=== PATIENT | female | born 1975 | race Caucasian/White ===

== ENCOUNTER 2021-12-06 12:55 | Emergency (ER) | payer SELFPAY ==
[2021-12-06 13:44] LABS: Urine Blood Negative (Negative); Urine Glucose Negative (Negative); Urine Protein Negative (Negative); Urine pH 6.5 (5.0-7.0)
[2021-12-06] MEDS ORDERED: NA CHLORIDE 0.9% 100 ML IV ONE (13:48)
[2021-12-06] MEDS ORDERED: LEVETIRACETAM 500 MG/5 ML VIAL IV ONE (13:48)
[2021-12-06] MEDS ORDERED: NA CHLORIDE 0.9% 1,000 ML ONE (13:49)
[2021-12-06 13:59] LABS: Barbiturates NEGATIVE (NEGATIVE); Benzodiazepines NEGATIVE (NEGATIVE); Cocaine NEGATIVE (NEGATIVE); METHAMPHETAM NEGATIVE (NEGATIVE); Methadone NEGATIVE (NEGATIVE); Opiates NEGATIVE (NEGATIVE); Phencyclidine NEGATIVE (NEGATIVE); THC Cannibis NEGATIVE (NEGATIVE)
[2021-12-06 14:30] LABS: Absolute Lymphocytes (CBC) 2.9 K/uL (0.7-4.9); Hematocrit 42.7 % (36.0-45.0); Lymphocytes % 30.4 % (15.3-44.8); MPV 7.8 fL (7.6-11.3); RBC Red Blood Cell Count 4.77 M/uL (3.86-4.86)
[2021-12-06 14:39] LABS: Protime INR 1.12
[2021-12-06 15:05] LABS: ALT/SGPT 22 U/L (12-78); AST/SGOT 13 U/L (15-37); Albumin 3.5 g/dL (3.4-5.0); Alkaline Phosphatase 72 U/L (45-117); BUN Blood Urea Nitrogen 10 mg/dL (7-18); Bicarbonate 25 mmol/L (21-32); Bilirubin Direct 0.1 mg/dL (0-0.2); Bilirubin Total 0.6 mg/dL (0.2-1.0); Glucose Level 91 mg/dL (74-106); Potassium 3.5 mmol/L (3.5-5.1); Protein, Total 6.9 g/dL (6.4-8.2); Sodium Level 141 mmol/L (136-145)
--- NOTE | 2021-12-06 16:21 | ER ---
Nurse's Notes [facility] Name: Shanna Nur Age: 46 yrs Sex: Female : 1975 Arrival Date: 12/06/2021 Time: 13:08 Bed 18 Private MD: Diagnosis: Other seizures Presentation: 12/06 13:15 Chief complaint: EMS states: 10 witness seizures at work today. Patient states she lost ww count yesterday after 22 seizures. Received 2mg Ativan in route. Coronavirus screen: Client denies travel out of the [place] in the last 14 days. Ebola Screen: Patient denies travel to an Ebola-affected area in the 21 days before illness onset. Initial Sepsis Screen: Does the patient meet any 2 criteria? No. Patient's initial sepsis screen is negative. Does the patient have a suspected source of infection? No. Patient's initial sepsis screen is negative. Risk Assessment: Do you want to hurt yourself or someone else? Patient reports no desire to harm self or others. Onset of symptoms was December 06, 2021. 13:15 Method Of Arrival: EMS: [facility] ww 13:15 Acuity: JESUS 3 ww Triage Assessment: 13:10 General: Appears comfortable, Behavior is calm, cooperative. Pain: Denies pain. EENT: ww No signs and/or symptoms were reported regarding the EENT system. Neuro: Level of Consciousness is post ictal, Oriented to person, place, time, situation. 13:10 Cardiovascular: Patient's skin is warm and dry. Respiratory: Airway is patent ww Respiratory effort is even, unlabored, Respiratory pattern is regular, symmetrical. GI: No signs and/or symptoms were reported involving the gastrointestinal system. : No signs and/or symptoms were reported regarding the genitourinary system. Derm: No signs and/or symptoms reported regarding the dermatologic system. Skin is intact, is healthy with good turgor. Historical: - Allergies: 14:01 No Known Allergies; ww - Home Meds: 14:01 Keppra Oral [Active]; Lisinopril Oral [Active]; Metoprolol Tartrate Oral [Active]; ww Bumex Oral [Active]; - PMHx: 14:01 Hypertensive disorder; Seizure; ww - Immunization history:: Adult Immunizations unknown. - Social history:: Smoking status: unknown. Screenin:04 Abuse screen: Denies threats or abuse. Denies injuries from another. Nutritional ww screening: No deficits noted. Tuberculosis screening: No symptoms or risk factors identified. Fall Risk None identified. Assessment: 14:04 Reassessment: Patient appears in no apparent distress at this time. No changes from ww previously documented assessment. Patient and/or family updated on plan of care and expected duration. Pain level reassessed. 15:35 Reassessment: Patient appears in no apparent distress at this time. No changes from ww previously documented assessment. Patient and/or family updated on plan of care and expected duration. Pain level reassessed. Patient is alert, oriented x 3, equal unlabored respirations, skin warm/dry/pink. 16:24 Reassessment: Patient appears in no apparent distress at this time. No changes from ww previously documented assessment. Patient and/or family updated on plan of care and expected duration. Pain level reassessed. Patient is alert, oriented x 3, equal unlabored respirations, skin warm/dry/pink. Tee Bill at bedside discussing findings and discharge instructions. Vital Signs: 13:15 BP 124 / 57; Pulse 91; Resp 18; Temp 97(O); Pulse Ox 97% ; Weight 68.04 kg; Height 5 ww ft. 3 in. (160.02 cm); Pain 0/10; 14:05 BP 108 / 75; Pulse 97; Resp 18; Pulse Ox 99% on R/A; ww 16:25 BP 130 / 71; Pulse 84; Resp 18; Pulse Ox 98% on R/A; ww 13:15 Body Mass Index 26.57 (68.04 kg, 160.02 cm) ww Remy Coma Score: 13:10 Eye Response: to voice(3). Verbal Response: oriented(5). Motor Response: obeys ww commands(6). Total: 14. ED Course: 13:08 Patient arrived in ED. ww 13:10 Tee Bill PA is PHCP. cp 13:10 Leo Diop MD is Attending Physician. cp 13:24 Halima Ryan, AUDI is Primary Nurse. ww 14:01 Triage completed. ww 14:04 Patient has correct armband on for positive identification. Bed in low position. Call ww light in reach. Side rails up X2. Adult w/ patient. Seizure precautions initiated. compliance monitor on. Pulse ox on. NIBP on. 14:04 Maintain EMS IV. Dressing intact. Good blood return noted. Site clean \T\ dry. Gauge \T\ ww site: 22g right hand. 16:44 Arm band placed on. ww 16:44 No provider procedures requiring assistance completed. IV discontinued, bleeding ww controlled, No redness/swelling at site. Pressure dressing applied. Administered Medications: 13:51 Drug: Keppra (levETIRAcetam) 1000 mg Route: IV; Rate: calculated rate; Site: left hand; ww 13:51 Not Given (Physician Discretion): Ativan (LORazepam) 1 mg IVP once ww 13:51 Drug: NS 0.9% 1000 ml Route: IV; Rate: 500 ml/hr; Site: left hand; Outcome: 16:21 Discharge ordered by . kyle 16:44 Discharged to home with friend. ww 16:44 Condition: stable 16:44 Discharge instructions given to patient, Instructed on discharge instructions, follow up and referral plans. medication usage, safety practices, Demonstrated understanding of instructions, follow-up care, medications. 16:44 Patient left the ED. ww Signatures: Tee Bill PA PA cp Wood, Whitney, RN RN ww
--- NOTE | 2021-12-06 16:21 | EDPHYS ---
Physician Documentation [facility] Name: Shanna Nur Age: 46 yrs Sex: Female : 1975 Arrival Date: 12/06/2021 Time: 13:08 Bed 18 Private MD: ED Physician Leo Diop HPI: 12/06 13:15 This 46 yrs old Female presents to ER via EMS with complaints of Seizure. cp 13:15 The patient presents with a history of multiple seizures, the episode(s) was witnessed, cp by co-worker(s). 13:15 Character of seizure(s): Loss of consciousness: the patient experienced loss of cp consciousness, Motor activity: generalized, shaking all over, Incontinence: none. Seizure onset: today. 13:15 Context: the seizure(s) was witnessed, by co-worker(s), occurred at work, Contributing cp factors: unknown, the patient is post-ictal. Seizure Hx: Seizure medications: Keppra, Vimpat. Associated injury: The patient did not suffer any apparent associated injury. EMS care: Ativan, 2 mg(s), IV. Current symptoms: decreased level of consciousness, is arousable but tired. Historical: - Allergies: 14:01 No Known Allergies; ww - Home Meds: 14:01 Keppra Oral [Active]; Lisinopril Oral [Active]; Metoprolol Tartrate Oral [Active]; ww Bumex Oral [Active]; - PMHx: 14:01 Hypertensive disorder; Seizure; ww - Immunization history:: Adult Immunizations unknown. - Social history:: Smoking status: unknown. ROS: 13:20 Neuro: Positive for history of seizures. cp 13:20 Eyes: Negative for injury, pain, redness, and discharge. cp 13:20 Constitutional: Negative for body aches, chills, fever, poor PO intake. 13:20 ENT: Negative for drainage from ear(s), ear pain, sore throat, difficulty swallowing, difficulty handling secretions. 13:20 Cardiovascular: Negative for chest pain, edema, palpitations. 13:20 Respiratory: Negative for cough, shortness of breath, wheezing. 13:20 Abdomen/GI: Negative for abdominal pain, nausea, vomiting, and diarrhea. 13:20 : Negative for urinary symptoms. 13:20 All other systems are negative. Exam: 13:25 Constitutional: The patient appears in no acute distress, non-diaphoretic, non-toxic, cp well developed, well nourished. 13:25 Head/Face: Normocephalic, atraumatic. cp 13:25 Eyes: Periorbital structures: appear normal, Pupils: equal, round, and reactive to light and accomodation, Extraocular movements: intact throughout, Conjunctiva: normal, no exudate, no injection, Sclera: no appreciated abnormality, Lids and lashes: appear normal, bilaterally. 13:25 ENT: External ear(s): are unremarkable, Nose: is normal, Mouth: Lips: moist, Oral mucosa: pink and intact, moist, Posterior pharynx: Airway: no evidence of obstruction, patent. 13:25 Neck: ROM/movement: is normal, is supple, without pain, no range of motions limitations, no meningismus. 13:25 Chest/axilla: Inspection: normal, Palpation: is normal, no crepitus, no tenderness. 13:25 Cardiovascular: Rate: normal, Rhythm: regular, Edema: is not appreciated, JVD: is not appreciated. 13:25 Respiratory: the patient does not display signs of respiratory distress, Respirations: normal, no use of accessory muscles, no retractions, labored breathing, is not present, Breath sounds: are clear throughout, no decreased breath sounds, no stridor, no wheezing. 13:25 Abdomen/GI: Inspection: abdomen appears normal, Palpation: abdomen is soft and non-tender, in all quadrants. 13:25 Musculoskeletal/extremity: Exam is negative for decreased range of motion, deformity, injury. 13:25 Neuro: Orientation: to person, place \T\ time. Mentation: responsive to voice able to follow commands, sleepy, Motor: moves all fours, strength is normal, Sensation: is normal. 14:53 ECG was reviewed by the Attending Physician. cp Vital Signs: 13:15 BP 124 / 57; Pulse 91; Resp 18; Temp 97(O); Pulse Ox 97% ; Weight 68.04 kg; Height 5 ww ft. 3 in. (160.02 cm); Pain 0/10; 14:05 BP 108 / 75; Pulse 97; Resp 18; Pulse Ox 99% on R/A; ww 16:25 BP 130 / 71; Pulse 84; Resp 18; Pulse Ox 98% on R/A; ww 13:15 Body Mass Index 26.57 (68.04 kg, 160.02 cm) ww Remy Coma Score: 13:10 Eye Response: to voice(3). Verbal Response: oriented(5). Motor Response: obeys ww commands(6). Total: 14. MDM: 13:17 Patient medically screened. cp 14:00 Differential diagnosis: drug overdose, cardiac arrhythmia, seizure, TIA. cp 16:20 Data reviewed: vital signs, nurses notes, lab test result(s). cp 16:20 Test interpretation: by ED physician or midlevel provider: ECG. Counseling: I had a cp detailed discussion with the patient and/or guardian regarding: the historical points, exam findings, and any diagnostic results supporting the discharge/admit diagnosis, lab results, the need for outpatient follow up, for definitive care, a neurologist, to return to the emergency department if symptoms worsen or persist or if there are any questions or concerns that arise at home. Response to treatment: the patient's symptoms have markedly improved after treatment, and as a result, I will discharge patient. 16:21 ED course: VSS. Patient resting comfortably in exam room . No seizure activity cp observed. Will discharge to home for continued monitoring. 12/06 13:10 Order name: Acetaminophen; Complete Time: 15:16 12/06 13:10 Order name: Basic Metabolic Panel; Complete Time: 15:16 12/06 15:16 Interpretation: Normal except: CL 111; GFR 86. 12/06 13:10 Order name: CBC with Diff; Complete Time: 15:08 12/06 15:08 Interpretation: Reviewed. 12/06 13:10 Order name: ETOH Level; Complete Time: 15:08 12/06 15:08 Interpretation: Reviewed. 12/06 13:10 Order name: Hepatic Function; Complete Time: 15:16 12/06 16:04 Interpretation: Normal except: AST 13; A/G 1.0. 12/06 13:10 Order name: PT-INR; Complete Time: 15:08 12/06 13:10 Order name: Ptt, Activated; Complete Time: 15:08 12/06 13:10 Order name: Salicylate; Complete Time: 15:08 12/06 13:10 Order name: Urine Drug Screen; Complete Time: 15:08 cp 12/06 15:08 Interpretation: Reviewed. cp 12/06 13:44 Order name: Urine Dipstick-Ancillary; Complete Time: 15:08 EDMS 12/06 13:45 Order name: Urine --Ancillary (enter results); Complete Time: 15:08 bd 12/06 13:10 Order name: EKG; Complete Time: 13:11 cp 12/06 13:10 Order name: EKG - Nurse/Tech; Complete Time: 14:53 cp 12/06 13:10 Order name: IV Saline Lock; Complete Time: 13:26 cp 12/06 13:10 Order name: Labs collected and sent; Complete Time: 14:21 cp 12/06 13:10 Order name: Urine Dipstick-Ancillary (obtain specimen); Complete Time: 13:51 cp 12/06 13:10 Order name: Urine Test (obtain specimen); Complete Time: 13:51 cp EC:53 Rate is 90 beats/min. Rhythm is regular. RI interval is normal. QRS interval is normal. cp QT interval is normal. T waves are Inverted in lead aVR. Interpreted by me. Reviewed by me. Administered Medications: 13:51 Drug: Keppra (levETIRAcetam) 1000 mg Route: IV; Rate: calculated rate; Site: left hand; 13:51 Not Given (Physician Discretion): Ativan (LORazepam) 1 mg IVP once ww 13:51 Drug: NS 0.9% 1000 ml Route: IV; Rate: 500 ml/hr; Site: left hand; Disposition: 18:28 Co-signature as Attending Physician, Leo Diop MD. rn Disposition Summary: 12/06/21 16:21 Discharge Ordered Location: Home cp Problem: an acute exacerbation cp Symptoms: have improved cp Condition: Stable cp Diagnosis - Other seizures cp Followup: cp - With: Private Physician - When: 1 - 2 days - Reason: Recheck today's complaints Discharge Instructions: - Discharge Summary Sheet cp - Seizure, Adult cp - Form - Excuse from Work, School, or Physical Activity cp Forms: - Medication Reconciliation Form cp - Thank You Letter cp - Antibiotic Education cp - Prescription Opioid Use cp - Work release form ww Signatures: Dispatcher [employer] Leo Brian MD MD rn Tee Bill PA PA cp Wood, Whitney, RN RN ww Corrections: (The following items were deleted from the chart) 13:26 13:10 Suicide Screening ([place]) ordered. kyle bronson
[2021-12-06 18:54] VITALS: TEMP 97
[2021-12-06 18:56] VITALS: BP 130/71; O2SAT 98
== END 2021-12-06 16:44 | disposition home or self-care (01) ==
LOC: ER 12:55 → EDBD 12:55 → ER 16:44
DX: G40.89 Other seizures (principal); I10 Essential (primary) hypertension
CPT/HCPCS: 36415; 80048; 80076; 80307; 80320; 80329; 81003; 81025; 85025; 85610; 85730; 96374; 99284; J1953; J7030

== ENCOUNTER 2021-12-23 13:39 | Inpatient (IN) | payer OTHER ==
--- OUTSIDE RECORDS SUMMARY | 2021-12-23 13:46 | XMS REPORT | Continuity of Care Document ---
:1975 Author Organization [facility] t Address [address] [place] [address] Care Team Providers Name Role Phone Rashida Primary Care Physician ELISE Attending Clinician Unavailable James MCDUFFIE TAvery Attending Clinician Joelle Boles DO Attending Clinician GABY RIZZO Attending Clinician Unavailable Florence HUNTLEY Attending Clinician Unavailable Alisson HUNTLEY Attending Clinician Unavailable ELISE Attending Clinician Unavailable YANIQUE COFFEY Attending Clinician Unavailable Santosh MCDUFFIE Attending Clinician JEANNIE CAMACHO Attending Clinician Unavailable Cortes Brumfield MD Attending Clinician Gina Coe MD Attending Clinician Mendel Vasquez MD Attending Clinician REID Attending Clinician Unavailable Dionicio ANDERSON Nelsy Attending Clinician KATEY PÉREZ Attending Clinician Unavailable DEANGELO DUONG Attending Clinician Unavailable DEANGLEO DUONG Attending Clinician Unavailable GRISEL RODRIGUEZ Attending Clinician Unavailable RAULITO SCHWARZ Attending Clinician Unavailable VANDANA BENSON Attending Clinician Unavailable NICOLE JOY Attending Clinician Unavailable PRANAV Attending Clinician Unavailable ANDREZ DE LEON Attending Clinician Unavailable TRACEE LAMBERT Attending Clinician Unavailable OBIE Admitting Clinician Unavailable DEANGELO DUONG Admitting Clinician Unavailable Payers Payer Name Policy Type Policy Number Effective Date Expiration Date S maurice [facility] [id number] 2020 STAR 00:00:00 CDC REVIEW [id number] 2020 00:00:00 Problems Condition Condition Condition Status Onset Resolution Last Treating Co mments Source Name Details Category Date Date Treatment Clinician Date Traumatic Traumatic Disease Active Met hodi brain brain 4-26 st injury injury 00:00: Hospita 00 l Seizure-li Seizure-li Disease Active M ethodi ke ke 2-04 st activity activity 00:00: Hospit a 00 l Need for Need for Disease Active Metho di assistance assistance 05-08 st due to due to 00:00: Hospita unsteady unsteady 00 l gait gait Seizures Seizures Disease Active Metho di 926 st 00:00: Hospita 00 l Dizziness Dizziness Disease Active Met hodi [facility] st 00:00: Hospita 00 l Chest pain Chest pain Disease Active M ethodi 2-16 st 00:00: Hospita 00 l TIA TIA Disease Active 2017-08 Methodi (transient (transient 2-21 st ischemic ischemic 00:00: Hospit a attack) attack) 00 l History of History of Disease Active Overview : Methodi DVT in DVT in 4-[address] adulthood adulthood 00:00: g of this H ospita 00 note l might be different from the original. Patient reported Chronic Chronic Disease Active Methodi blood loss blood loss 3-30 st anemia anemia 00:00: Hospita 00 l Increased Increased Disease Active Met hodi endometria endometria 3-30 st l stripe l stripe 00:00: Hospit a thickness thickness 00 l Abnormal Abnormal Disease Active Metho di uterine uterine 3-30 st bleeding bleeding 00:00: Hospit a (AUB) (AUB) 00 l Poor Poor Disease Active Methodi compliance compliance 3-30 st with with 00:00: Hospita medication medication 00 l VAGINAL Diagnosis Active 2016-08-10 Me moria BLEEDING 7-02 09:01:00 l VAGINAL 23:00: [place] BLEEDING 00 Active 02/12/2016 [facility] D25.9 - Diagnosis Active 2014-082015-06-08 Me moria "LEIOMYOMA 0- 15:22:00 l OF UTERUS, D25.9 - 00:01: Her sarkar UNSPECIFI" "LEIOMYOMA 00 OF UTERUS, UNSPECIFI" Active 06/08/2015 OPIBritany [place] VAGINAL Diagnosis Active 2014-12-21 Me moria BLEEDING- - 13:01:00 l 6 WKS PG VAGINAL 00:00: Kristina nn BLEEDING- 00 6 WKS PG Active 09/03/2014 [facility] CONSTIPATI Diagnosis Active 2014-12-14 Memoria ON, NAUSEA 1-12 09:23:00 l 00:00: [place] CONSTIPATI 00 ON, NAUSEA Active 08/24/2014 [facility] History of History of Problem Resolve UT Bladder Bladder d Physici spasm spasm ans History of History of Problem Resolve UT Chronic Chronic d Physici pain pain ans History of History of Problem Resolve UT Chronic Chronic d Physici pain due pain due ans to to neoplasm neoplasm History of History of Problem Resolve UT Degenerati Degenerati d Ph ysici on of on of ans interverte interverte bral disc bral disc of lumbar of lumbar region region History of History of Problem Resolve UT degenerati degenerati d Ph ysici ve disc ve disc ans disease disease History of History of Problem Resolve UT mitral mitral d Physici valve valve ans prolapse prolapse History of History of Problem Resolve UT multiple multiple d Physic i sclerosis sclerosis ans History of History of Problem Resolve UT Peptic Peptic d Physici ulcer, ulcer, ans chronic chronic Fibroids Fibroids Problem Active UT Physici ans Encounter Encounter Problem Active UT for for Physici routine routine ans gynecologi gynecologi keerthi keerthi examinatio examinatio n with n with Papanicola Papanicola ou smear ou smear of cervix of cervix Dysmenorrh Dysmenorrh Problem Active U T ea ea Physici ans Menorrhagi Menorrhagi Problem Active U T a with a with Physici regular regular ans cycle cycle Vaginal Vaginal Problem Active UT discharge discharge Phys ici ans Bacterial Bacterial Problem Active UT vaginosis vaginosis Phys ici ans Encounter Encounter Problem Active UT for for Physici confirmati confirmati an s on of on of test test result result with with physical physical examinatio examinatio n n Missed Missed Problem Active UT Physic i ans Anemia Anemia Problem Active UT Physici ans Problem Active UT control control Physici ans Follow up Follow up Problem Active UT Physici ans Pelvic Pelvic Problem Active UT pain in pain in Physici female female ans Pain of Pain of Problem Active UT right hand right hand Ph ysici ans Neurapraxi Neurapraxi Problem Active U T a of right a of right Ph ysici upper upper ans extremity, extremity, initial initial encounter encounter Pain of Pain of Problem Active UT right right Physici thumb thumb ans SOB SOB Problem Active UT (shortness (shortness Ph ysici of breath) of breath) an s on on exertion exertion 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 Anemia Problem Resolve 2016-02-16 Bhavesh mario (disorder) d 00:25:42 l Anemia [place] (disorder) Resolved Problem 02/16/2016 [facility] Migraine Problem Resolve 2016-02-16 Me moria (disorder) d 00:25:42 l Migraine Jordy n (disorder) Resolved Problem 02/16/2016 [facility] Mitral Problem Resolve 2016-02-16 Bhavesh mario valve d 00:25:42 l prolapse Mitral Jordy n (disorder) valve prolapse (disorder) Resolved Problem 02/16/2016 [facility] Anxiety Problem Active 2016-02-16 Bhavesh mario (finding) 00:25:42 l Anxiety [place] (finding) Active Problem 02/16/2016 [facility] Bipolar Problem Active 2016-02-16 Bhavesh mario (qualifier 00:25:42 l value) Bipolar [place] (qualifier value) Active Problem 02/16/2016 [facility] Congestive Problem Active 2016-02-16 M emoria heart 00:25:42 l failure [place] (disorder) Congestive heart failure (disorder) Active Problem 02/16/2016 [facility] Depressive Problem Active 2016-02-16 M emoria disorder 00:25:42 l (disorder) Jordy n Depressive disorder (disorder) Active Problem 02/16/2016 [facility] Gastroesop Problem Active 2016-02-16 M emoria hageal 00:25:42 l reflux Antonio disease Gastroesop (disorder) hageal reflux disease (disorder) Active Problem 02/16/2016 [facility] Heart Problem Active 2016-02-16 Memor ia failure 00:25:42 l (disorder) Heart Kristina nn failure (disorder) Active Problem 02/16/2016 [facility] Hypertensi Problem Active 2016-02-16 M emoria ve 00:25:42 l disorder, Antonio systemic Hypertensi arterial ve (disorder) disorder, systemic arterial (disorder) Active Problem 02/16/2016 [facility] Multiple Problem Active 2016-02-16 Mem oria sclerosis 00:25:42 l (disorder) Multiple He rmann sclerosis (disorder) Active Problem 02/16/2016 [facility] Osteoarthr Problem Active 2016-02-16 M emoria itis 00:25:42 l (disorder) Jordy n Osteoarthr itis (disorder) Active Problem 02/16/2016 [facility] Drug Problem Active 2016-02-16 Memor ia overdose 00:25:42 l (disorder) Drug Jordy n overdose (disorder) Active Problem 02/16/2016 [facility] Rheumatoid Problem Active 2016-02-16 M emoria arthritis 00:25:42 l (disorder) Jordy n Rheumatoid arthritis (disorder) Active Problem 02/16/2016 [facility] Respirator Problem Active 2016-02-16 M emoria y failure 00:25:42 l (disorder) Jordy n Respirator y failure (disorder) Active Problem 02/16/2016 [facility] Uterine Problem Active 2016-02-16 Bhavesh mario leiomyoma 00:25:42 l (disorder) Uterine Her sarkar leiomyoma (disorder) Active Problem 02/16/2016 [facility] Urinary Problem Active 2016-02-16 Bhavesh mario tract 00:25:42 l infectious Urinary Her sarkar disease tract (disorder) infectious disease (disorder) Active Problem 02/16/2016 [facility] History of Past Illness Condition Condition Condition Status Onset Resolution Last Treating Co mments Source Name Details Category Date Date Treatment Clinician Date Discharge Problem 2016-02-16 2016-02-16 Memoria Diagnosis: 02-12 00:25:42 00:25:42 l Anemia, 05:00: [place] unspecifie Discharge 00 d Diagnosis: Anemia, unspecifie d 02/13/2016 02/16/2016 [facility] Discharge Problem 2016-02-16 2016-02-16 Memoria Diagnosis: 02-12 00:25:42 00:25:42 l Abnormal 05:00: [place] uterine Discharge 00 and Diagnosis: vaginal Abnormal bleeding, uterine unspecifie and d vaginal bleeding, unspecifie d 02/13/2016 02/16/2016 [facility] Discharge Problem 2014-09-06 2014-09-06 Memoria Diagnosis: 09-04 16:01:45 16:01:45 l Vaginal 06:00: [place] bleeding Discharge 00 Diagnosis: Vaginal bleeding 5 09/06/2014 [facility] Discharge Problem 2014-09-06 2014-09-06 Memoria Diagnosis: 09-04 16:01:45 16:01:45 l Dysmenorrh 06:00: Jordy n ea Discharge 00 Diagnosis: Dysmenorrh ea 09/04/2014 09/06/2014 [facility] Discharge Problem 2014-08-26 2014-08-26 Memoria Diagnosis: 1 17:22:44 17:22:44 l Nausea 06:00: [place] Discharge 00 Diagnosis: Nausea 08/24/2014 08/26/2014 [facility] Discharge Problem 2014-08-26 2014-08-26 Memoria Diagnosis: 1 17:22:44 17:22:44 l Constipati 06:00: Jordy n on Discharge 00 Diagnosis: Constipati on 08/24/2014 08/26/2014 [facility] Allergies, Adverse Reactions, Alerts Allergy Allergy Status Severity Reaction(s) Onset Inactive Treating Comm ents Source Name Type Date Date Clinician Povidone Allergy Active UT Iodine to 04-25 Health substanc 00:00: e 00 Latex Allergy Active UT to 04-25 Health substanc 00:00: e 00 Nsaids Propensi Active UT ty to 04-25 Health adverse 00:00: reaction 00 s Citalopr Propensi Active Itching Burning Meth ketty am ty to 09-[address] adverse 00:00: Hospita reaction 00 l s to drug Citalopr Propensi Active Itching Burning UT am ty to 09-16 skinBurni Health adverse 00:00: ng reaction 00 skinBurni s ng skin Tramadol Propensi Active Seizure 2017-08 migraines Me thodi ty to 09-23 st adverse 00:00: Hospita reaction 00 l s to drug Ketorola Propensi Active Other (See migraines Methodi c ty to Comments) 11-07 st adverse 00:00: Hospita reaction 00 l s to drug IODINE Allergy Active High Anaphylaxis 2016- [facility] AND 11-07 IODIDE 00:00: CONTAINI 00 NG PRODUCTS KETOROLA Allergy Active [facility] C 11-07 00:00: 00 Iodine Drug Active [facility]aphyl[facility] 2017[facility] Containi 00 Center ng Products Ketorola Drug Active [facility] Intolera 11[facility] nce 00:00: Medical 00 Center Povidone Propensi Active Anaphylaxis 2017-0 M ethodi -Iodine ty to 10-19 st adverse 00:00: Hospita reaction 00 l s to drug Iodine Propensi Active Anaphylaxis 2016- Met hodi And ty to 10-19 st Iodide adverse 00:00: Hospita Containi reaction 00 l ng s to Products drug Latex Propensi Active Hives 2016- Methodi ty to 10-19 st adverse 00:00: Hospita reaction 00 l s to drug Shellfis Propensi Active Anaphylaxis 2017-0 M ethodi h ty to 10-19 st Derived adverse 00:00: Hospita reaction 00 l s to drug Vancomyc Propensi Active Hives 2016-0 Method i in ty to 09-25 st Analogue adverse 00:00: Hospita s reaction 00 l s to drug TRAMADOL Allergy Active 2016-0 [facility] 09-25 00:00: 00 VANCOMYC Allergy Active 2016-0 [facility] IN 09-25 ANALOGUE 00:00: S 00 Tramadol Propensi Active 2017-[address] ty to 2-13 [facility] adverse 00:00: Medical reaction 00 Center s Vancomyc Propensi Active [facility] ty to 2-13 [facility] Analogue adverse 00:00: Medical s reaction 00 Center s Levoflox Propensi Active Anaphylaxis 2013-08 Tongue M ethodi acin ty to 0-[address] adverse 00:00: Hospita reaction 00 l s to drug Prometha Propensi Active Hives 2013-08 Method i zine ty to 0-03 st adverse 00:00: Hospita reaction 00 l s to drug POVIDONE Allergy Active 2013-08 [facility] -IODINE 0-03 00:00: 00 LATEX Allergy Active 2013-08 [facility] 0-03 00:00: 00 LEVOFLOX Allergy Active 2013-08 [facility] ACIN 0-03 00:00: 00 PROMETHA Allergy Active 2013-08 [facility] ZINE 0-03 00:00: 00 Povidone Propensi Active 2013-[address] -Iodine ty to 0-03 [facility] adverse 00:00: Medical reaction 00 Center s Latex Propensi Active 2013-[address] ty to 0-03 [facility] adverse 00:00: Medical reaction 00 Center s Levoflox Propensi Active 2013-[address] acin ty to 0-03 [facility] adverse 00:00: Medical reaction 00 Center s Prometha Propensi Active 2013-[address] zine ty to 0-03 [facility] adverse 00:00: Medical reaction 00 Center s Betadine Betadine Active Memori a Skin Skin 8-09 l 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 00:00: Jordy roberto 00 iodinate iodinate Active Memori a d d 8 l radioCloudSway radiocon 00:00: Jordy roberto trast trast 00 dyes dyes Levaquin Levaquin Active Memori a 8-09 l 00:00: Antonio 00 Phenerga Phenerga Active Memori a n n 8-09 l 00:00: Antonio 00 Betadine Allergy Active UT SOLN to drug Physici (finding ans ) Latex Allergy Active UT Exam to drug Physici Gloves (finding ans MISC ) Levaquin Allergy Active UT to drug Physici (finding ans ) Phenerga Allergy Active UT n to drug Physici (finding ans ) Vancomyc Allergy Active UT in HCl to drug Physici SOLR (finding ans ) Latex Latex Active Memoria l [place] morphine morphine Active Memori a l [place] vancomyc vancomyc Active Memori a in in l [place] Elavil Elavil Active Memoria l [place] Food Food Active Memoria Seafood Seafood l [place] STEROIDS Allergy Active [facility] Family History Family Member Diagnosis Comments Start Date Stop Date Source Maternal aunt Melanoma [facility] Maternal aunt Cancer [facility] Maternal uncle Leukemia [facility] Family member No history of Methodis t cancer [facility] Maternal grandfather Stroke [facility] Natural mother Diabetes [facility] Natural sister Stroke [facility] Social History Social Habit Start Date Stop Date Quantity Comments Source History SDOH [facility] Alcohol Frequency Hospita l History SDOH [facility] Drinks History [facility] Tobacco use and 2021-04-25 2021-04-25 Smokeless tobacco [facility] exposure 00:00:00 00:00:00 non-user Alcohol intake 2021-04-25 2021-04-25 Ex-drinker [facility] 00:00:00 00:00:00 (finding) Alcohol Comment 2018-08-02 2018-08-[address] 00:00:00 00:00:00 Hospital Sex Ass[birth year] At [birth year] [facility] 00:00:00 00:00:00 Smoking Status Start Date Stop Date Source Tobacco smoking consumption unknown [facility] Social History [facility] Medications Ordered Filled Start Stop Current Ordering Indication Dosage Frequency Signature Comments Components Source Medication Medication Date Date Medication? Clinician (SIG) Name Name shay 2020-08- No [id number] 1{tbl} Q6H Take 1 Methodi en-codeine 17 11-[address] (TYLENOL 00:00: 05:59 mouth Hospita WITH 00 :00 every 6 l CODEINE #3) (six) 300-30 mg hours as per tablet needed for moderate pain for up to 5 days .acute pain. No known No No known IN medications 9- medication He alth 12:13: s 10 metoprolol Yes [id number] 50mg Q.5D Take 1 U T succinate 9-13 tablet (50 Heal th XL 00:00: mg total) (Toprol-XL) 00 by mouth 2 50 MG 24 hr (two) tablet times a day. bumetanide Yes [id number] 2mg QD Take 1 U T (Bumex) 2 - tablet (2 Healt h MG tablet 00:00: mg total) 00 by mouth 1 (one) time each day. lisinopril Yes [id number] 2.5mg QD Take 1 UT 2.5 MG 04-25 tablet Health tablet 00:00: (2.5 mg 00 total) by mouth 1 (one) time each day. lisinopril 2020- No 2.5mg 2.5 mg. UT 2.5 MG 02-08 Health tablet 19:34: 00:00 53 :00 metoprolol 2020- No 50mg 50 mg. UT succinate 02-08 Health XL 19:34: 00:00 (Toprol-XL) 53 :00 50 MG 24 hr tablet lisinopril Yes [id number] 2.5mg QD Take 1 UT 2.5 MG - tablet Health tablet 00:00: (2.5 mg 00 total) by mouth 1 (one) time each day. metoprolol Yes [id number] 50mg Q.5D Take 1 U T succinate 02-08 tablet (50 Heal th XL 00:00: mg total) (Toprol-XL) 00 by mouth 2 50 MG 24 hr (two) tablet times a day. lisinopril 2020- No [id number] 2.5mg QD Take 1 UT 2.5 MG 02-08 tablet Health tablet 00:00: 00:00 (2.5 mg 00 :00 total) by mouth 1 (one) time each day. metoprolol 2020- No [id number] 50mg Q.5D Take 1 UT succinate 02-08 tablet (50 Hea lth XL 00:00: 00:00 mg total) (Toprol-XL) 00 :00 by mouth 2 50 MG 24 hr (two) tablet times a day. aspirin 325 Yes 325mg Take 325 M ethodi MG tablet 4-[address] 11:32: mouth. Hospita 59 Takes 3x a l week nitroglycer Yes .3mg Place 0.3 M ethodi in 4-[address] (NITROSTAT) 11:32: the tongue Hospita 0.3 MG SL 59 every 5 l tablet (five) minutes as needed for chest pain. ipratropium 0 Yes 2{puff} Q.25D Inhale 2 Methodi -albuteroL 4-[address] (COMBIVENT 11:32: (four) Hospi ta RESPIMAT) 59 times a l 20-100 day. Last mcg/actuati used February. inhaler linaCLOtide 0 Yes 72ug QD Take 72 Met hodi (LINZESS) 4-[address] 145 mcg 11:32: mouth Hospita capsule 59 daily l before breakfast. Last taken more than 6 months ago. Taken for colitis. metoprolol 0 Yes 50mg Q.5D Take 50 mg M ethodi tartrate 4-[address] (LOPRESSOR) 11:32: (two) Hospi ta 50 mg 59 times a l tablet day. lisinopriL 0 Yes 2.5mg QD Take 2.5 Me thodi (PRINIVIL) 4-[address] 2.5 mg 11:32: mouth Hospita tablet 59 daily. l BUMETanide 0 Yes 2mg Q.5W Take 2 mg Me thodi (BUMEX) 2 4-[address] MG tablet 11:32: (two) Hospita 59 times a l week. FLUoxetine 0 Yes 10mg QD Take 10 mg M ethodi (PROzac) 10 4-[address] MG capsule 11:32: daily. Hospi ta 59 l prazosin 2020-0 Yes 5mg QD Take 5 mg Meth ketty (MINIPRESS) 4-[address] 5 MG 11:32: nightly. Hospita capsule 59 l busPIRone 2020-0 Yes 15mg Q.[id number] Take 15 mg Methodi (BUSPAR) 10 4-26 [id number] mouth [address] MG tablet 11:32: 3D (three) Hospi ta 59 times a l day. ondansetron 2020-0 Yes 8mg Q8H Take 8 mg M ethodi ODT 4-[address] (ZOFRAN-ODT 11:32: every 8 Hos denise ) 8 MG 59 (eight) l disintegrat hours as ing tablet needed for nausea or vomiting. bumetanide 2020- No 2mg QD Take 2 mg U T (Bumex) 2 12-06 by mouth 1 Hea lth MG tablet 00:00: 00:00 (one) time 00 :00 each day. levETIRAcet 2020- No 750mg Q.5D Take 1 Me thodi am (KEPPRA) 12-[address] 750 MG 00:00: 04:59 (750 mg Hospita tablet 00 :00 total) by l mouth 2 (two) times a day for 30 days. lacosamide 2020- No 200mg Q.5D Take 1 Met hodi (Vimpat) 11-[address] 200 mg 00:00: 04:59 (200 mg Hospita tablet 00 :00 total) by l mouth 2 (two) times a day for 30 days. levETIRAcet 2020- No 500mg Q.5D Take 1 Me thodi am (Keppra) 11-[address] 500 MG 00:00: 00:00 (500 mg Hospita tablet 00 :00 total) by l mouth 2 (two) times a day for 30 days. amoxicillin 2020- No 1{tbl} Q12H Take 1 M ethodi -pot 11-03-[address] clavulanate 00:00: 04:59 mouth Hosp arcenio (AUGMENTIN) 00 :00 every 12 l 875-125 mg (twelve) per tablet hours for 10 days. acetaminoph 2020- [place] [id number] 1{tbl} Q6H Take 1-2 Methodi en-codeine 3- 03-[address] (TYLENOL 00:00: 04:59 mouth Hospita WITH 00 :00 every 6 l CODEINE #3) (six) 300-30 mg hours as per tablet needed for moderate pain for up to 5 days .acute pain. lacosamide 2020- No 200mg Q.5D Take 1 Met hodi (VIMPAT) 09-17-[address] 200 mg 00:00: 05:59 (200 mg Hospita tablet 00 :00 total) by l mouth 2 (two) times a day for 30 days. levETIRAcet 2020- No 500mg Q.5D Take 1 Me thodi am (KEPPRA) 09-17-[address] 500 MG 00:00: 05:59 (500 mg Hospita tablet 00 :00 total) by l mouth 2 (two) times a day for 30 days. BUMETanide 2020- No 2mg QD Take 1 Meth ketty (BUMEX) 2 09-11 tablet (2 st MG tablet 00:00: 05:59 mg total) Ho spita 00 :00 by mouth l daily for 30 days. mag 2020-0 Yes 15mL Take [address] [facility] hydrox/alum 7-11 mLs by [facility] inum 00:00: mouth Medical hyd/simeth 00 every 6 Center (GI (six) COCKTAIL hours as COMPOUNDED) needed. solution WITH mag 2020-0 Yes 15mL Take [address] hydrox/alum 7-11 mLs by [facility] inum 00:00: mouth Medical hyd/simeth 00 every 6 Center (GI (six) COCKTAIL hours as COMPOUNDED) needed. solution WITH mag 2020-0 Yes 15mL Take [address] hydrox/alum 7-11 mLs by [facility] inum 00:00: mouth Medical hyd/simeth 00 every 6 Center (GI (six) COCKTAIL hours as COMPOUNDED) needed. solution WITH albuterol 2020- No 2.5mg Take 0.[address] (PROVENTIL, 02-20 07-11 mLs (2.5 Thais es VENTOLIN) 5 00:00: 23:59 mg total) Medical mg/mL 00 :00 by Center nebulizer nebulizati solution on every 6 (six) hours as needed for Wheezing. omeprazole 2020- No 20mg QD Take [address] (PRILOSEC) 02-20 07-11 capsule [facility] 20 MG 00:00: 23:59 (20 mg Medical capsule 00 :00 total) by Center mouth daily. albuterol 2020- No 2.5mg Take 0.[address] (PROVENTIL, 02-20 07-11 mLs (2.5 Thais es VENTOLIN) 5 00:00: 23:59 mg total) Medical mg/mL 00 :00 by Center nebulizer nebulizati solution on every 6 (six) hours as needed for Wheezing. omeprazole 2020- No 20mg QD Take [address] (PRILOSEC) 02-20-11 capsule [facility] 20 MG 00:00: 23:59 (20 mg Medical capsule 00 :00 total) by Center mouth daily. albuterol 2020- No 2.5mg Take 0.[address] (PROVENTIL, 02-20 mLs (2.5 Thais es VENTOLIN) 5 00:00: 23:59 mg total) Medical mg/mL 00 :00 by Center nebulizer nebulizati solution on every 6 (six) hours as needed for Wheezing. omeprazole No 20mg QD Take [address] (PRILOSEC) 02-20 capsule [facility] 20 MG 00:00: 23:59 (20 mg Medical capsule 00 :00 total) by Center mouth daily. dicyclomine 2020- No 20mg Q.5D Take [address] (BENTYL) 20 6-24 06-24 tablet (20 L ukes mg tablet 00:00: 23:59 mg total) Me dical 00 :00 by mouth 2 Center (two) times daily. dicyclomine 2020- No 20mg Q.5D Take [address] (BENTYL) 20 6-24 06-24 tablet (20 L ukes mg tablet 00:00: 23:59 mg total) Me dical 00 :00 by mouth 2 Center (two) times daily. dicyclomine 2020- No 20mg Q.5D Take [address] (BENTYL) 20 6-24 06-24 tablet (20 L ukes mg tablet 00:00: 23:59 mg total) Me dical 00 :00 by mouth 2 Center (two) times daily. albuterol 2020- No 2{puff} Inhale [address] HFA 3-01 03-01 puffs by [facility] (VENTOLIN 00:00: 23:59 mouth via Me dical HFA) 90 00 :00 inhaler Center mcg/actuati every 4 on inhaler (four) hours as needed for Wheezing. albuterol 2020- No 2{puff} Inhale [address] HFA 3- 03-01 puffs by [facility] (VENTOLIN 00:00: 23:59 mouth via Me dical HFA) 90 00 :00 inhaler Center mcg/actuati every 4 on inhaler (four) hours as needed for Wheezing. albuterol 2020- No 2{puff} Inhale [address] HFA 3- 03-01 puffs by [facility] (VENTOLIN 00:00: 23:59 mouth via Me dical HFA) 90 00 :00 inhaler Center mcg/actuati every 4 on inhaler (four) hours as needed for Wheezing. Ferralet 90 Ferralet 90 Yes JUANCARLOS EMMANUEL 1QD - TA KE UT 90-1 MG 90-1 MG 9-12 M.D. ONE Physici Oral Tablet Oral Tablet 00:00: CAPSULE BY ans 00 MOUTH EVERY DAY ferrous Yes 325 mg = 1 Bhavesh mario gluconate -03 tab, PO, l 325 mg oral 10:36: TID, # 90 H ermann tablet 00 tab, 0 Refill(s) Reglan No 10 mg, Memoria 02-12 Route: l 09:11: IVP, Drug [place] 00 form: INJ, ONCE, Dosing Weight 68.182, kg, Priority: STAT, Start date: 02/13/16 4:11:00 CDT, Stop date: 02/13/16 4:11:00 CDT Sodium No 1,000 mL, Memori a Chloride 02-12 Rate: l 0.9% IV 09:11: 1,000 Antonio 1000 mL 00 ml/hr, Infuse over: 1 hr, Route: IV, Dosing Weight 68.182 kg, Total Volume: 1,000, Start date: 02/13/16 4:11:00 CDT, Duration: 1 doses or times, Stop date: 02/13/16 5:10:00 CDT, Bolus Dose Acetaminoph No 650 mg, Mem oria en 02-12 Route: PO, l 08:17: Drug form: [place] 00 TAB, ONCE, Dosing Weight 68.182, kg, Priority: STAT, Start date: 02/13/16 3:17:00 CDT, Stop date: 02/13/16 3:17:00 CDT Zofran No 4 mg, Memoria 02-12 Route: l 06:19: IVP, Drug form: INJ, ONCE, Dosing Weight 68.182, kg, Priority: STAT, Start date: 02/13/16 1:19:00 CDT, Stop date: 02/13/16 1:19:00 CDT Saline No Notes: Memoria Flush 0.9% 02-12 (Same as: l 06:07: BD Antonio Posiflush) Ibuprofen Yes Special Memor ia 800 MG Oral 09-04 Instructio l Tablet 08:52: ns: Take Antonio [Motrin] with food Ketorolac No 4 days Memor ia -23 l 08:49: Antonio 00 gabapentin Yes 600 mg = 1 M emoria 600 MG Oral 1-12 tab, PO, l Tablet 21:41: TID, # 90 Jordy n [Neurontin] 00 tab, 0 Refill(s) atorvastati Yes 20 mg = 1 M emoria n 20 MG 1-12 tab, PO, l Oral Tablet 21:41: Bedtime, # Antonio [Lipitor] 00 30 tab, 0 Refill(s) metoprolol Yes 50 mg = 1 Me moria tartrate 50 1-12 tab, PO, l mg oral 21:41: BID, # 60 Kristina nn tablet 00 tab, 0 Refill(s) Tylenol Tylenol Yes UT TABS TABS Physici ans OLANZapine OLANZapine Yes 1 TAKE 1 U T 5 MG Oral 5 MG Oral TABLET AT Physici Tablet Tablet BEDTIME. ans Metoprolol Metoprolol Yes Q0.5D TAKE 1 UT Succinate Succinate TABLET Phy sici ER 50 MG ER 50 MG TWICE ans Oral Tablet Oral Tablet DAILY Extended Extended Release 24 Release 24 Hour Hour Lisinopril Lisinopril Yes 1 QD TAKE 1 U T 2.5 MG Oral 2.5 MG Oral TABLET Physici Tablet Tablet DAILY. ans Prazosin Prazosin Yes 1 TAKE 1 UT HCl - 5 MG HCl - 5 MG CAPSULE Physici Oral Oral BEDTIME ans Capsule Capsule Vimpat 200 Vimpat 200 Yes Q0.5D TAKE 1 UT MG Oral MG Oral TABLET Physici Tablet Tablet TWICE ans DAILY DIRECTED. Bumetanide Bumetanide Yes 1 QD TAKE 1 U T 2 MG Oral 2 MG Oral TABLET Phy sici Tablet Tablet DAILY. ans FLUoxetine FLUoxetine Yes 1 QD TAKE 1 U T HCl - 10 MG HCl - 10 MG TABLET Physici Oral Tablet Oral Tablet DAILY. ans levETIRAcet levETIRAcet Yes Q0.5D TAKE 1 UT am 500 MG am 500 MG TABLET Phy sici Oral Tablet Oral Tablet TWICE ans DAILY. busPIRone busPIRone Yes Q0.3333D TAKE 1 UT HCl - 15 MG HCl - 15 MG TABLET 3 Physici Oral Tablet Oral Tablet TIMES ans DAILY. Immunizations Ordered Immunization Filled Immunization Date Status Commen ts Source Name Name Tdap 2020-11-03 Completed [facility] 00:[facility] Vital Signs Vital Name Observation Time Observation Value Comments Source HEIGHT 2021-05-05 165.1 cm 20:18:00 WEIGHT 2021-05-05 68.04 kg 20:18:00 HEIGHT 2021-05-05 165.1 cm 20:18:00 WEIGHT 2021-05-05 68.04 kg 20:18:00 Systolic blood 2021-04-25 120 mm[Hg] [facility] 16:25:00 Diastolic blood 2021-04-25 77 mm[Hg] [facility] pressure 16:25:00 Heart rate 2021-04-25 72 /min [facility] 16:25:00 Body height 2021-04-25 167.6 cm [facility] 16:25:00 Body weight 2021-04-25 78.926 kg [facility] 16:25:00 BMI 2021-04-25 28.08 kg/m2 [facility] 16:25:00 HEIGHT 2020-02-04 161 cm 00:00:00 WEIGHT 2020-02-04 68.04 kg 00:00:00 HEIGHT 2020-02-04 161 cm 00:00:00 WEIGHT 2020-02-04 68.04 kg 00:00:00 Systolic blood 2021-06-29 147 mm[Hg] [facility] pressure 16:16:09 [facility] Diastolic blood 2021-06-29 67 mm[Hg] [facility] pressure 16:16:09 Hospital Heart rate 2021-06-29 94 /min [facility] 16:16:09 Hospital Body temperature 2021-06-29 36.89 Cecily [facility] 16:16:09 Hospital Oxygen saturation 2021-06-29 94 /min [facility] in Arterial blood 16:16:09 Hospital by Pulse oximetry Systolic blood 2021-05-06 124 mm[Hg] [facility] pressure 01:23:00 [facility] Diastolic blood 2021-05-06 68 mm[Hg] [facility] pressure 01:23:00 [facility] Heart rate 2021-05-06 84 /min [facility] 01:23:00 [facility] Body temperature 2021-05-[address] [facility] 01:23:00 [facility] Respiratory rate 2021-05-06 18 /min [facility] 01:23:00 [facility] Oxygen saturation 2021-05-05 99 /min [facility] Arterial blood 23:45:00 [facility] nter by Pulse oximetry Body height 2021-05-[address] [facility] 20:18:00 [facility] Body weight 2021-05-[address] [facility] 20:18:00 [facility] BMI 2021-05-05 24.96 kg/m2 [facility] 20:18:00 [facility] Systolic blood 2020-12-16 120 mm[Hg] Location: [facility] Physicia ns pressure 11:22:00 Position: Sitting Diastolic blood 2020-12-16 77 mm[Hg] Location: [facility] Physici ans pressure 11:22:00 Position: Sitting Body height 2020-12-16 63 [in_us] [facility] 11:22:00 Weight 2020-12-16 165 [lb_av] [facility] 11:22:00 Body mass index 2020-12-16 29.23 kg/m2 [facility] (BMI) [Ratio] 11:22:00 Heart Rate 2020-12-16 90 /min [facility] 11:22:00 Respiratory rate 2020-12-06 16 /min [facility] 15:01:00 Hospital Body height 2020-12-03 165.1 cm [facility] 21:48:00 Hospital Body weight 2020-12-03 63.504 kg [facility] 21:48:00 Hospital BMI 2020-12-03 23.30 kg/m2 [facility] 21:48:00 Hospital Systolic blood 2020-12-02 112 mm[Hg] Location: [facility] Physicia ns pressure 12:05:00 Position: Sitting Diastolic blood 2020-12-02 68 mm[Hg] Location: [facility] Physici ans pressure 12:05:00 Position: Sitting Body height 2020-12-02 63 [in_us] [facility] 12:05:00 Weight 2020-12-02 168 [lb_av] [facility] 12:05:00 Body mass index 2020-12-02 29.76 kg/m2 [facility] (BMI) [Ratio] 12:05:00 Heart Rate 2020-12-02 72 /min [facility] 12:05:00 Systolic (mm Hg) 2016-02-13 [facility] 11:30:00 Diastolic (mm Hg) 2016-02-13 [facility] 11:30:00 Heart Rate 2016-02-13 [facility] 11:30:00 Respitory Rate 2016-02-13 [facility] 11:30:00 Temperature Oral 2016-02-13 98.2 F [facility] (F) 11:30:00 Temperature Oral 2016-02-13 98.2 F [facility] (F) 11:00:00 Respitory Rate 2016-02-13 [facility] 11:00:00 Systolic (mm Hg) 2016-02-13 [facility] 11:00:00 Diastolic (mm Hg) 2016-02-13 [facility] 11:00:00 Heart Rate 2016-02-13 [facility] 11:00:00 Systolic (mm Hg) 2016-02-13 [facility] 10:00:00 Diastolic (mm Hg) 2016-02-13 [facility] 10:00:00 Heart Rate 2016-02-13 [facility] 10:00:00 Respitory Rate 2016-02-13 [facility] 10:00:00 Temperature Oral 2016-02-13 98.4 F [facility] (F) 10:00:00 BMI Calculated 2016-02-13 [facility] 05:43:00 Weight 2016-02-13 [facility] 05:43:00 Height 2016-02-13 160.02 cm [facility] 05:43:00 Respitory Rate 2014-09-04 [facility] 09:14:00 Diastolic (mm Hg) 2014-09-04 [facility] 09:14:00 Heart Rate 2014-09-04 [facility] 09:14:00 Temperature Oral 2014-09-04 97.6 F [facility] (F) 09:14:00 Systolic (mm Hg) 2014-09-04 [facility] 09:14:00 Respitory Rate 2014-09-04 [facility] 07:11:00 Temperature Oral 2014-09-04 97.9 F [facility] (F) 07:11:00 Heart Rate 2014-09-04 [facility] 07:11:00 Systolic (mm Hg) 2014-09-04 [facility] 07:11:00 Diastolic (mm Hg) 2014-09-04 [facility] 07:11:00 BMI Calculated 2014-09-04 [facility] 07:11:00 Height 2014-09-04 160.02 cm [facility] 07:11:00 Weight 2014-09-04 [facility] 07:11:00 Diastolic (mm Hg) 2014-08-24 [facility] 22:03:00 Temperature Oral 2014-08-24 98.0 F [facility] (F) 22:03:00 Respitory Rate 2014-08-24 [facility] 22:03:00 Systolic (mm Hg) 2014-08-24 [facility] 22:03:00 Heart Rate 2014-08-24 [facility] 22:03:00 Systolic (mm Hg) 2014-08-24 [facility] 17:24:00 Respitory Rate 2014-08-24 [facility] 17:24:00 Diastolic (mm Hg) 2014-08-24 [facility] 17:24:00 Heart Rate 2014-08-24 [facility] 17:24:00 Temperature Oral 2014-08-24 98.2 F [facility] (F) 17:24:00 Height 2014-08-24 160.02 cm [facility] 17:24:00 BMI Calculated 2014-08-24 [facility] 17:24:00 Weight 2014-08-24 [facility] 17:24:00 Procedures Procedure Date / Time Performing Clinician Source Performed XR KNEE 1 OR 2 VW RIGHT 2021-06-29 16:46:14 Braulio [facility] CT SPINE CERVICAL WITHOUT 2021-05-05 22:50:00 Ryanne Hurtado [facility] IV CONTRAST [facility] CT BRAIN WITHOUT IV 2021-05-05 22:38:00 [facility] ED ECG INTERPRETATION 2021-05-05 20:57:00 Ryanne Hurtado [facility] LEVETIRACETAM LEVEL 2021-05-05 20:34:00 [facility] CBC W/PLT COUNT & AUTO 2021-05-05 20:34:00 [facility] DIFFERENTIAL [facility] COMPREHENSIVE METABOLIC 2021-05-05 20:34:00 Hurtado [facility] PANEL [facility] TROPONIN I 2021-05-05 20:34:00 Genesis [facility] CBC W/PLT COUNT & AUTO 2021-05-05 20:34:00 Hurtado [facility] REPORT OF PROCEDURE - 2021-05-05 00:00:00 Provider, [facility] ENDOSCOPY SCAN [facility] [L] BMP8+eGFR 2020-12-16 00:00:00 [facility] [QL] CBC (INCLUDES 2020-12-16 00:00:00 [facility] DIFF/PLT) [QL] LIPID PANEL 2020-12-16 00:00:00 [facility] [QL] TSH, 3RD GENERATION 2020-12-16 00:00:00 [facility] W/REFLEX TO FT4 [QL] HEMOGLOBIN A1c 2020-12-16 00:00:00 [facility] POC GLUCOSE 2020-12-06 05:18:00 Obdulio Coe spital UNMONITORED VIDEO-EEG 12 2020-12-05 19:27:44 Britni Arredondo [facility] HRS 1MIN-26HRS Lee EEG SETUP 2020-12-05 09:23:13 Maria Elena [facility] EEG (ROUTINE) 2020-12-04 16:25:57 Maria Elena [facility] Lee POC GLUCOSE 2020-12-04 05:03:00 Obdulio Coe spital URINE DRUGS OF ABUSE 2020-12-04 04:55:00 [facility] HEAD WO CONTRAST 2020-12-04 02:48:09 [facility]ACETAM[facility] 2020-12-04 01:43:00 [facility] LEVEL ALCOHOL LEVEL, BLOOD 2020-12-04 01:43:00 [facility] TROPONIN 2020-12-04 01:43:00 Calvin Kevinh [facility] XR CHEST 1 VW PORTABLE 2020-12-03 23:52:00 [facility] [place] COVID-19 QUALITATIVE 2020-12-03 22:41:00 [facility] RT-PCR [facility] CRITICAL CARE, E/M 2020-12-03 21:55:13 [facility] 30-74 MINUTES [facility] ECG ED PRELIMINARY 2020-12-03 21:55:13 [facility] INTERPRETATION [facility] HC COMPLETE BLD COUNT 2020-12-03 21:52:00 [facility] W/AUTO DIFF [facility] PROTHROMBIN TIME WITH INR 2020-12-03 21:52:00 [facility] 2020-12-03 21:52:00 [facility] TIME (PTT) [place] COMPREHENSIVE METABOLIC 2020-12-03 21:52:00 [facility] PANEL [facility] TROPONIN 2020-12-03 21:52:00 [facility] [place] B NATRIURETIC PEPTIDE 2020-12-03 21:52:00 [facility] HCG QUALITATIVE, SERUM 2020-12-03 21:52:00 [facility] SCREEN [place] ESTIMATED GFR 2020-12-03 21:52:00 [facility] CREATINE KINASE, TOTAL 2020-12-03 21:52:00 [facility] (CPK) [facility] ECG 12-LEAD 2020-12-03 21:48:15 [facility] [place] [L] BMP8+eGFR 2020-12-02 00:00:00 [facility] [QL] CBC (INCLUDES 2020-12-02 00:00:00 [facility] DIFF/PLT) [QL] LIPID PANEL 2020-12-02 00:00:00 [facility] [QL] HEMOGLOBIN A1c 2020-12-02 00:00:00 [facility] [QL] B TYPE NATRIURETIC 2020-12-02 00:00:00 [facility] PEPTIDE (BNP) URINALYSIS SCREEN AND 2020-11-18 00:45:00 [facility] MICROSCOPY, WITH REFLEX TO [place] CULTURE HC COMPLETE BLD COUNT 2020-11-17 22:57:00 [facility] W/AUTO DIFF [place] COMPREHENSIVE METABOLIC 2020-11-17 22:57:00 [facility] PANEL [place] ESTIMATED GFR 2020-11-17 22:57:00 [facility] [place] URINE CULTURE 2020-11-17 22:55:00 [facility] [place] XR HAND 3+ VW RIGHT 2020-11-03 04:24:40 Woo [facility] [place] History of Tubal Ligation [facility] History of Appendectomy [facility] History of Cholecystectomy [facility] Laparoscopic Appendectomy [facility] Blood transfusion [facility] Plan of Care Planned Activity Planned Date Details Comments Source Future Scheduled 2030-11-03 DTAP/TDAP/TD [facility] Test 00:00:00 VACCINES (2 - [facility]d or Medical Center Tdap) [code = DTAP/TDAP/TD VACCINES (2 - Td or Tdap)] Future Scheduled 2030-11-03 DTAP/TDAP/TD [facility] Test 00:00:00 VACCINES (2 - Td or Medical Center Tdap) [code = DTAP/TDAP/TD VACCINES (2 - Td or Tdap)] Future Scheduled 2025-09-[address] [facility] Test 00:00:00 (procedure) [code = [facility] [id number]] Future Scheduled 2025-09-[address] [facility] Test 00:00:00 (procedure) [code = [facility] 70683785] Future Scheduled 2023-08-[address] [facility] Test 00:00:00 (procedure) [code = [facility] [id number]] Future Scheduled 2021-06-29 COVID-19 [facility]ACCINE (1[facility] 11:36:01 [code = COVID-19 VACCINE (1)] Future Scheduled 2021-06-29 Hepatitis C [facility] Test 11:36:01 screening (procedure) [code = 969584746] Future Scheduled 2021-06-29 [facility] Test 11:36:01 malignant neoplasm of cervix (procedure) [code = 046598149] Future Scheduled 2021-06-29 [facility]FLU[facility]ZA [facility]ACCINE [facility] Test 11:36:01 [code = INFLUENZA VACCINE] Future Scheduled 2021-04-[address] [facility] Test 00:00:00 (#1) [code = [facility] INFLUENZA VACCINE (#1)] Future Scheduled 2021-04-[address] [facility] Test 00:00:00 (#1) [code = [facility] INFLUENZA VACCINE (#1)] Future Scheduled 2020-08-[address] [facility] Test 00:00:00 (12+) [code = [facility] DEPRESSION SCREENING (12+)] Future Scheduled 2020-08-[address] [facility] Test 00:00:00 (12+) [code = [facility] DEPRESSION SCREENING (12+)] Future Scheduled 2020-04-[address] [facility] Test 00:00:00 (#1) [code = [facility] INFLUENZA VACCINE (#1)] Future Scheduled [address] [facility] Test 00:00:00 malignant neoplasm Medical C enter of cervix (procedure) [code = 030979226] Future Scheduled [address] [facility] [facility] Test 00:00:00 malignant neoplasm Medical C enter of cervix (procedure) [code = 390809576] Future Scheduled [address] [facility] [facility] Test 00:00:00 malignant neoplasm Medical C enter of cervix (procedure) [code = 958147762] Future Scheduled [address] [facility] Test 00:00:00 SCREENING [code = Medical Ce nter HEPATITIS C SCREENING] Future Scheduled [address] [facility] Test 00:00:00 SCREENING [code = Medical Ce nter HEPATITIS C SCREENING] Future Scheduled 1985 COVID-19 VACCINE (1) [facility] Test 00:00:00 [code = COVID-[address] VACCINE (1)] Future Scheduled 1985 COVID-19 VACCINE (1) [facility] Test 00:00:00 [code = COVID-[address] VACCINE (1)] Future Scheduled [address] [facility] [facility] Test 00:00:00 malignant neoplasm Medical C enter of colon (procedure) [code = 582955145] Future Scheduled [address] [facility] [facility] Test 00:00:00 malignant neoplasm Medical C enter of colon (procedure) [code = 539607166] Encounters Start End Encounter Admission Attending Care Care Encounter Source Date/Time Date/Time Type Type Clinicians Facility Department ID 2021-04-25 Outpatient [facility] [id number] [place] 12:28:46 [facility] 2020-12-18 Outpatient [facility] [id number] [place] 04:17:31 [facility] 2021-06-29 2021-06-29 Emergency James, 1.2.840.1 [id number] Methodi 10:17:00 12:01:00 Haroon Young 91341.1.[address] 3.430.2.7 Hospit a .3.579561 l .8 2021-06-29 2021-06-29 Travel 1.2.840.1 1.2.307.757 [id number] Methodi 00:00:00 00:00:[address] 3.430.2.7 0.2.7.3.698 Ho spita .3.684402 084.8 l .8 2021-05-05 2021-05-06 Emergency ER [place], [facility] [id number] 20:22:00 01:24:00 [facility] 2021-05-05 2021-05-05 Emergency ER [facility] Emergency [id number] [facility] 20:07:00 20:07:00 2021-05-05 2021-05-05 Travel [facility] [id number] [facility] 00:[facility] 00:00[facility]00 [facility] 2021-04-25 2021-04-25 Office VINCE Olivares [facility] [id number] [place] 10:00:00 12:28:43 Visit Leandro [facility] 350.1.13.58 H [facility] [address] 4 9.2.7.2.686 [id number] 2021-02-18 2021-02-18 Emergency E MATTHIAS, [facility] 7503 [facility] 08:39:00 12:51:00 TEJAL 2021-02-08 2021-02-08 Orders Waleska Henriquez [facility] 1.2.840.11 [id number] [place] 00:00:00 00:00:00 Only Waleska Henriquez [facility] [id number] Health [place] 4 9.2.7.2.686 [id number] 2021-02-08 2021-02-08 Orders VINCE Henriquez [facility] 1.2.840.114 [id number] 00:00:00 [facility]:00:00 [facility] 350.1.13.58 [place] 4 9.2.7.2.686 [id number] 2020-12-20 2020-12-20 Telephone Vinson, 1.2.840.1 [id number] Method 00:00:00 00:00:[address] 3.430.2.7 Hospit a .3.181619 l .8 2020-12-16 2020-12-16 AppointVINCE Knutson [facility] [id number] [place] 11:00:00 11:00:00 t; LEANDRO OLIVARES [facility] PANTOJA M.D. [facility] 2020-12-14 2020-12-14 Telephone Vinson, 1.2.840.1 [id number] Methodi 00:00:00 00:00:[address] 3.430.2.7 Hospit a .3.838326 l .8 2020-12-07 2020-12-08 Outpatient E ERLINDA, [facility] PUL [id number] [facility] 17:43:00 13:15:00 VIRAL 2020-12-08 2020-12-08 EXT MH OP Khalid, EXT MSRDP 1.2.840.114 1 [id number] [place] 00:00:00 00:00:00 Adnan LOCATION 350.1.13.58 H ealt 9.2.7.2.686 [id number] 2020-12-06 2020-12-06 Appointmen JEANNIE CLARKE [id number] [place] 14:00:00 14:00:00 t; BANKIM BEHALIANE Phys ici millicent CHAMBERS SANDIPAN SANDIPAN PATI, M.D. PATI, M.D. 2020-12-03 2020-12-06 [facility] 1.2.840.1 [id number] Methodi 16:45:00 11:32:00 Encounter Obdulio Coe 62662.1.[address] 3.430.2.7 Hospit a .3.778597 l .8 2020-12-02 2020-12-02 Appointmen [facility] [id number] [place] 11:15:00 11:15:00 t; LEANDRO OLIVARES, Surgery - PhysicChalo Daugherty M.D. 2020-11-17 2020-11-17 Emergency Pedro, 1.2.840.1 [id number] Methodi 17:26:00 20:59:[address] Mendel 3.430.2.7 Hospit a .3.257943 l .8 2020-11-17 2020-11-17 Appointmen VINCE MATHEWS RUST [id number] [place] 15:00:00 15:00:00 t; Carter ROQUE i, M.D. ans ASHTON, M.D. 2020-11-17 2020-11-17 Travel 1.2.840.1 [id number] [id number] Methodi 00:00:00 00:00:[address] 3.430.2.7 0.2.7.3.698 Ho spita .3.554719 084.8 l .8 2020-11-02 2020-11-03 Emergency Dionicio, 1.2.840.1 [id number] Methodi 23:00:00 01:47:[address] [place] 3.430.2.7 Hospit a .3.990488 l .8 2020-11-02 2020-11-02 Travel 1.2.840.1 1.2.705.372 [id number] Methodi 00:00:00 00:00:[address] 3.430.2.7 0.2.7.3.698 Ho spita .3.682339 084.8 l .8 2020-02-20 2020-02-20 Emergency ER [facility] Emergency [id number] [facility] 19:04:00 19:04:00 2020-02-04 2020-02-04 Outpatient Mason [facility] RAD [id number] [facility] 10:15:00 23:59:[address] [facility] 2020-02-04 2020-02-04 Emergency ER [facility] Emergency [id number] [facility] 05:29:00 05:29:00 2019-12-03 2019-12-03 Emergency E BRITNI RODRIGUEZ [facility] [id number] Memoria 16:11:00 19:03:00 [facility] 2019-12-03 2019-12-03 Outpatient KARISHMA, [facility] [id number] Memoria 17:00:00 18:55:00 [facility] 2019-10-12 2019-10-12 Emergency [facility] [id number] [facility] 17:06:00 17:06:00 [id number] 2019-08-25 2019-08-25 Emergency E [facility] 0013 [facility] 17:44:00 17:44:00 2016-02-13 [id number] Memoria 05:43:00 11:41:00 Emergency r [place] 00 l [facility] 2014-09-04 2014-09-04 [facility] [id number] Memoria 07:09:00 09:15:00 Emergency r [place] 19 l [facility] 2014-08-24 2014[facility]08-[facility] [id number] Memoria 17:17:00 22:15:00 Emergency r [place] 18 l [facility] Results Test Description Test Time Test Comments Results Result Comments Source Levetiracetam level 2021-05-11 14:27:33 Test Item Value Reference Range Interpretation Comme nts Levetiracetam <2.0 mcg/mL L Ref erence Range: 12.0-46.0 Toxic (test code = level is not we ll established. Interpretation ) should include a clinical evaluation. For additional information, please refer tohttp://educat ion.[employer]faq/AUL072(This link is being p rovided forinformational/educational purposes only.) This test was developed and its analytical perf ormance characteristics have been determined by [employer]. It has not been cleared or approved by theA. This assay has been validated pursuant to the CLIA regulations and is used for clinical purpos es. CIRO (test code Perfo = CIRO) rming Lab *GAGANDEEP [facility] [address] [place], [address] [place] [address] Parminder chavez MD Lab Abnor Interpretation mal (test code = 55869-7) [facility] [id number] 14:27:33 Test Item Value Reference Interpretation Comments Range Levetiracetam (test <2.0 mcg/mL L Reference code = ) Range: 12.0- 46.0 Toxic le adriana is not well established. Interpretation should incl ude a clinical evaluation. For additional information, pl ease refer tohttp://educat ion.[employer] .[employer] faq/EMQ402(This link is being provid ed forinformationa l/edu cational purpos es only.) This jose t was developed and i ts analytical performance characteristics have been determined by [facility]. It has not been cleared or appr christiano by theFDA. This assay has been validated pursu ant to the CLIA regulations and is used for clinic al purposes. CIRO (test code = Performing Lab CIRO) *GAGANDEEP [employer] [facility], [address] [place] [id number] Parminder Szymanski MD Lab Interpretation Abnormal (test code = 38708-5) [facility], [facility], WITHOUT [id number] 23:05:00 Unlisted Reason for Exam - Click Yes and Enter Reason Below->No [facility] : 1975 Sex: FFINAL REPORT CT, BRAIN, WITHOUT CONTRAST, CT, SPINE, CERVICAL, WO CON TRAST INDICATION: Seizure, normal neuro exam (Ped 0-18y), neck pain. TECHNIQUE: Contiguous noncontrast axial images of the head and cervical spine are obtained. Computer reformatted coronal and sagittal images are also provided. Axial images are available in both bone and soft tissue algorithm. DOSE REDUCTION: Dose modulation, iterative reconstruction, and/or weight-based adjustment of the mA/kV was utilized to reduce the radiation dose to as low as reasonably achievable. COMPARISON: 03/25/2017. FINDINGS: Head:Intracranial: No intracranial hemorrhage or abnormal extra-axial collection. No evidence of acute territorial infarct. No mass effect. No hydrocephalus.Osseous structures: No fracture. No suspicious lesion.Paranasal sinuses and mastoid air cells: No evidence of sinusitis. Mastoids are clear.Orbital contents: Globes are intact. Cervical spine:Alignment: No traumatic malalignment. C1 and C2 lateral masses are congruent. Vertebrae: No acute fracture. No aggressive osseous lesion. Congenitallyunfused C1 posterior ring. Spondylosis: No high-grade canal or foraminal stenosis. Soft tissues: No prevertebral soft tissue swelling. Visualized lung apices are clear. IMPRESSION: No acute intracranial abnormality. No acute osseous fracture cervical spine. If there is persistent clinical concern for intracranial pathology, MR examination is recommended for further characterization. Signed: Aneudy Diaz MDReport Verified Date/Time: 05/05/2021 23:05:29 CT, SPINE, CERVICAL, WO [id number] 23:05:00Unlisted Reason for Exam - Click Yes and Enter Reason Below->No [facility] : 1975 Sex: FFINAL REPORT CT, BRAIN, WITHOUT CONTRAST, CT, SPINE, CERVICAL, WO CON TRAST INDICATION: Seizure, normal neuro exam (Ped 0-18y), neck pain. TECHNIQUE: Contiguous noncontrast axial images of the head and cervical spine are obtained. Computer reformatted coronal and sagittal images are also provided. Axial images are available in both bone and soft tissue algorithm. DOSE REDUCTION: Dose modulation, iterative reconstruction, and/or weight-based adjustment of the mA/kV was utilized to reduce the radiation dose to as low as reasonably achievable. COMPARISON: 03/25/2017. FINDINGS: Head:Intracranial: No intracranial hemorrhage or abnormal extra-axial collection. No evidence of acute territorial infarct. No mass effect. No hydrocephalus.Osseous structures: No fracture. No suspicious lesion.Paranasal sinuses and mastoid air cells: No evidence of sinusitis. Mastoids are clear.Orbital contents: Globes are intact. Cervical spine:Alignment: No traumatic malalignment. C1 and C2 lateral masses are congruent. Vertebrae: No acute fracture. No aggressive osseous lesion. Congenitallyunfused C1 posterior ring. Spondylosis: No high-grade canal or foraminal stenosis. Soft tissues: No prevertebral soft tissue swelling. Visualized lung apices are clear. IMPRESSION: No acute intracranial abnormality. No acute osseous fracture cervical spine. If there is persistent clinical concern for intracranial pathology, MR examination is recommended for further characterization. Signed: Aneudy Diaz MDReport Verified Date/Time: 05/05/2021 23:05:29 [facility] [id number] 21:22:45 Test Item Value Reference Range Interpretation Comments Troponin I (test code = <0.03 0.00-0.15 18985-4) CIRO (test code = CIRO) Troponin I (TnI) levels must be interpreted in the context of the presenting symptoms and the clinical findings. Elevated TnI levels indicate myocardial damage, but are not specific for ischemic heart disease. Elevated TnI levels are seen in patients with other cardiac conditions (including myocarditis and congestive heart failure), and slight TnI elevations occur in patients with other conditions, including sepsis, renal failure, acidosis, acute neurological disease, and persistent tachyarrhythmia.Opera tor ID - THELMA Lab Interpretation (test Normal code = 80646-9) [facility] [id number] 21:22:45 Test Item Value Reference Range Interpretation Comments Troponin I (test code = <0.03 0.00-0.15 19811-4) CIRO (test code = CIRO) Troponin I (TnI) levels must be interpreted in the context of the presenting symptoms and the clinical findings. Elevated TnI levels indicate myocardial damage, but are not specific for ischemic heart disease. Elevated TnI levels are seen in patients with other cardiac conditions (including myocarditis and congestive heart failure), and slight TnI elevations occur in patients with other conditions, including sepsis, renal failure, acidosis, acute neurological disease, and persistent tachyarrhythmia.Opera tor ID - THELMA Lab Interpretation (test Normal code = 52482-2) [facility] [id number] 21:22:45 Test Item Value Reference Range Interpretation Comments TROPONIN I (BEAKER) (test code = 397) < ng/mL 0.00-0.15 Troponin I (TnI) levels must be interpreted in the context of the presenting symptoms and the clinical findings. Elevated TnI levels indicate myocardial damage, but are not specific for ischemic heart disease. Elevated TnI levels are seen in patients with other cardiac conditions (including myocarditis and congestive heart failure), and slight TnI elevations occur in patients with other conditions, including sepsis, renal failure, acidosis, acute neurological disease, and persistent tachyarrhythmia.Manager Asset ID - JUSTINComprehensive metabolic [id number] 21:20:36 Test Item Value Reference Interpretation Comments Range Protein, Total (test 7.5 See_Comment Specime n code = 2885-2) slightly hemolyzed [Automated message] The system which generated this result transmitted reference range : 6.0 - 8.5 gm/dL . The reference range was not used to interpret this result as normal/abnormal . Albumin (test code = 4.1 g/dL 3.5-5.0 [place] [address]-4) slightly hemolyzed Alkaline Phosphatase 72 U/L 30-115 (test code = 6768-6) Total Bilirubin 1.0 mg/dL 0.1-1.2 Specimen (test code = 1974-2) slightl y hemolyzed Sodium (test code = 141 meq/L 461-909 4087-2) Potassium (test code 3.8 meq/L 3.6-5.5 Specime n = 2823-3) slightly hemolyzed Chloride (test code 104 meq/L 98-106 = 2075-0) CO2 (test code = 24 meq/L 20-29 2027-9) BUN (test code = 7 mg/dL 10-26 L 3094-0) Creatinine (test 0.81 mg/dL 0.50-1.20 Specimen code = 2160-0) slightly hemolyzed Glucose (test code = 92 mg/dL 70-110 2345-7) Calcium (test code = 9.4 mg/dL 8.5-10.5 54625-8) AST (test code = 21 U/L 5-40 Specimen 1920-8) slightly hemolyzed ALT (test code = 27 U/L 5-50 Specimen 1742-6) slightly hemolyzed EGFR (test code = 76 mL/min/1[place]73 [place] [address]-9) m NOT ACCURATE CREATININE CLEARANCE IN PREDICTING GLOMERULAR FILTRATION RATE . ESTIMATED GFR I S NOT APPLICABLE FOR DIALYSIS PATIENTS. CIRO (test code = Manager Asset ID - CIRO) JUSTINOperator ID - JUSTINOperator ID - JUSTINOperator ID - JUSTINOperator ID - JUSTINOperator ID - JUSTINOperator ID - JUSTINOperator ID - JUSTINOperator ID - JUSTINOperator ID - JUSTINOperator ID - JUSTINOperator ID - JUSTINOperator ID - JUSTINOperator ID - JUSTINOperator ID - JUSTINOperator ID - JUSTINOperator ID - JUSTINOperator ID - JUSTINOperator ID - THELMA Lab Interpretation Abnormal (test code = 41159-6) [facility] [id number] 21:20:36 Test Item Value Reference Interpretation Comments Range Protein, Total (test 7.5 See_Comment Specime n code = 2885-2) slightly hemolyzed [Automated message] The system which generated this result transmitted reference range : 6.0 - 8.5 gm/dL . The reference range was not used to interpret this result as normal/abnormal . Albumin (test code = 4.1 g/dL 3.5-5.0 [place] [address]-2) slightly hemolyzed Alkaline Phosphatase 72 U/L 30-115 (test code = 6768-6) Total Bilirubin 1.0 mg/dL 0.1-1.2 Specimen (test code = 1974-2) slightl y hemolyzed Sodium (test code = 141 meq/L 747-305 8513-2) Potassium (test code 3.8 meq/L 3.6-5.5 Specime n = 2823-3) slightly hemolyzed Chloride (test code 104 meq/L 98-106 = 2075-0) CO2 (test code = 24 meq/L 20-29 8-9) BUN (test code = 7 mg/dL 10-26 L 3094-0) Creatinine (test 0.81 mg/dL 0.50-1.20 Specimen code = 2160-0) slightly hemolyzed Glucose (test code = 92 mg/dL 70-110 2345-7) Calcium (test code = 9.4 mg/dL 8.5-10.5 02174-2) AST (test code = 21 U/L 5-40 Specimen 1920-8) slightly hemolyzed ALT (test code = 27 U/L 5-50 Specimen 1742-6) slightly hemolyzed EGFR (test code = 76 mL/min/1.73 [place] [address]-3) m NOT ACCURATE CREATININE CLEARANCE IN PREDICTING GLOMERULAR FILTRATION RATE . ESTIMATED GFR I S NOT APPLICABLE FOR DIALYSIS PATIENTS. CIRO (test code = Manager Asset ID - CIRO) JUSTINOperator ID - JUSTINOperator ID - JUSTINOperator ID - JUSTINOperator ID - JUSTINOperator ID - JUSTINOperator ID - JUSTINOperator ID - JUSTINOperator ID - JUSTINOperator ID - JUSTINOperator ID - JUSTINOperator ID - JUSTINOperator ID - JUSTINOperator ID - JUSTINOperator ID - JUSTINOperator ID - JUSTINOperator ID - JUSTINOperator ID - JUSTINOperator ID - THELMA Lab Interpretation Abnormal (test code = 04414-3) [facility] [id number] 21:20:36 Test Item Value Reference Range Interpretation Comments TOTAL PROTEIN 7.5 gm/dL 6.0-8.5 Specimen sligh tly (BEAKER) (test code = hemoly zed 770) ALBUMIN (BEAKER) 4.1 g/dL 3.5-5.0 Specimen sl ightly (test code = 1145) hemolyzed ALKALINE PHOSPHATASE 72 U/L 30-115 (BEAKER) (test code = 346) BILIRUBIN TOTAL 1.0 mg/dL 0.1-1.2 Specimen sli ghtly (BEAKER) (test code = hemoly zed 377) SODIUM (BEAKER) (test 141 meq/L 135-148 code = 381) POTASSIUM (BEAKER) 3.8 meq/L 3.6-5.5 Specimen slightly (test code = 379) hemolyzed CHLORIDE (BEAKER) 104 meq/L 98-106 (test code = 382) CO2 (BEAKER) (test 24 meq/L 20-29 code = 355) BLOOD UREA NITROGEN 7 mg/dL 10-26 L (BEAKER) (test code = 354) CREATININE (BEAKER) 0.81 mg/dL 0.50-1.20 Specimen slightly (test code = 358) hemolyzed GLUCOSE RANDOM 92 mg/dL 70-110 (BEAKER) (test code = 652) CALCIUM (BEAKER) 9.4 mg/dL 8.5-10.5 (test code = 697) AST (SGOT) (BEAKER) 21 U/L 5-40 Specimen slightly (test code = 353) hemolyzed ALT (SGPT) (BEAKER) 27 U/L 5-50 Specimen slightly (test code = 347) hemolyzed EGFR (BEAKER) (test 76 mL/min/1.73 ESTIMA GAYE GFR IS code = 1092) sq m NOT ACCURATE CREATININE CLEARANCE IN PREDICTING GLOMERULAR FILTRATION RATE . ESTIMATED GFR I S NOT APPLICABLE FOR DIALYSIS PATIEN TS. Manager Asset ID - JUSTINOperator ID - JUSTINOperator ID - JUSTINOperator ID - JUSTINOperator ID - JUSTINOperator ID - JUSTINOperator ID - JUSTINOperator ID - JUSTINOperator ID - JUSTINOperator ID - JUSTINOperator ID - JUSTINOperator ID - JUSTINOperator ID - JUSTINOperator ID - JUSTINOperator ID - JUSTINOperator ID - JUSTINOperator ID - JUSTINOperator ID - JUSTINOperator ID - JUSTINCBC with platelet count + automated [id number] 20:51:36 Test Item Value Reference Range Interpretation Comments WBC (test code = 6690-2) 12.0 See_Comment H [A utomated message] The system Rely[employer] generated this result transmitted ref erence range: 4.0 - 10 .0 K/L. The refe rence range was not u sed to interpret this result as normal/abnor mal. RBC (test code = 789-8) 4.84 See_Comment [Au tomated message] The system [employer] generated this result transmitted ref erence range: 4.00 - 5 .00 M/L. The refe rence range was not u sed to interpret this result as normal/abnor mal. MCHC (test code = 786-4) 34.8 See_Comment [A utomated message] The system [employer] generated this result transmitted ref erence range: 32.0 - 3 6.0 GM/DL. The refe rence range was not u sed to interpret this result as normal/abnor mal. Hematocrit (test code = 43.1 % 36.0-46.0 4544-3) MCV (test code = 787-2) 89.0 fL 82.0-99.0 MCH (test code = 785-6) 31.0 pg 27.0-33.0 RDW (test code = 788-0) 12.8 % 12.0-15.0 Platelets (test code = 478 See_Comment H [Aut omated message] 777-3) The system [employer] generated this result transmitted ref erence range: 150 - 43 0 K/CU MM. The referen ce range was not u sed to interpret this result as normal/abnor mal. MPV (test code = 9.7 fL 6.0-11.5 26978-7) nRBC (test code = 413) 0 See_Comment [Aut omated message] The system [employer] generated this result transmitted ref erence range: 0 - 0 /1 00 WBC. The refere nce range was not u sed to interpret this result as normal/abnor mal. % Neutros (test code = 58 % 429) % Lymphs (test code = 30 % 430) % Monos (test code = 7 % 431) % Eos (test code = 432) 3 % % Baso (test code = 437) 1 % # Neutros (test code = 7.01 See_Comment [Aut omated message] 670) The system [employer] generated this result transmitted ref erence range: 1.80 - 8 .00 K/L. The refe rence range was not u sed to interpret this result as normal/abnor mal. # Lymphs (test code = 3.61 See_Comment [Auto mated message] 414) The system [employer] generated this result transmitted ref erence range: 1.48 - 4 .50 K/L. The refe rence range was not u sed to interpret this result as normal/abnor mal. # Monos (test code = 0.86 See_Comment [Autom ated message] 415) The system [employer] generated this result transmitted ref erence range: 0.00 - 1 .30 K/L. The refe rence range was not u sed to interpret this result as normal/abnor mal. # Eos (test code = 416) 0.41 See_Comment [Au tomated message] The system [employer] generated this result transmitted ref erence range: 0.00 - 0 .50 K/L. The refe rence range was not u sed to interpret this result as normal/abnor mal. # Baso (test code = 417) 0.10 See_Comment [A utomated message] The system [employer] generated this result transmitted ref erence range: 0.00 - 0 .20 K/L. The refe rence range was not u sed to interpret this result as normal/abnor mal. Immature 0 % 0-0 Granulocytes-Relative (test code = 2801) Lab Interpretation (test Abnormal code = 19538-9) [facility] with platelet count + automated [id number] 20:51:36 Test Item Value Reference Range Interpretation Comments WBC (test code = 6690-2) 12.0 See_Comment H [A utomated message] The system [employer] generated this result transmitted ref erence range: 4.0 - 10 .0 K/L. The refe rence range was not u sed to interpret this result as normal/abnor mal. RBC (test code = 789-8) 4.84 See_Comment [Au tomated message] The system [employer] generated this result transmitted ref erence range: 4.00 - 5 .00 M/L. The refe rence range was not u sed to interpret this result as normal/abnor mal. MCHC (test code = 786-4) 34.8 See_Comment [A utomated message] The system [employer] generated this result transmitted ref erence range: 32.0 - 3 6.0 GM/DL. The refe rence range was not u sed to interpret this result as normal/abnor mal. Hematocrit (test code = 43.1 % 36.0-46.0 4544-3) MCV (test code = 787-2) 89.0 fL 82.0-99.0 MCH (test code = 785-6) 31.0 pg 27.0-33.0 RDW (test code = 788-0) 12.8 % 12.0-15.0 Platelets (test code = 478 See_Comment H [Aut omated message] 777-3) The system [employer] generated this result transmitted ref erence range: 150 - 43 0 K/CU MM. The referen ce range was not u sed to interpret this result as normal/abnor mal. MPV (test code = 9.7 fL 6.0-11.5 73450-8) nRBC (test code = 413) 0 See_Comment [Aut omated message] The system [employer] generated this result transmitted ref erence range: 0 - 0 /1 00 WBC. The refere nce range was not u sed to interpret this result as normal/abnor mal. % Neutros (test code = 58 % 429) % Lymphs (test code = 30 % 430) % Monos (test code = 7 % 431) % Eos (test code = 432) 3 % % Baso (test code = 437) 1 % # Neutros (test code = 7.01 See_Comment [Aut omated message] 670) The system [employer] generated this result transmitted ref erence range: 1.80 - 8 .00 K/L. The refe rence range was not u sed to interpret this result as normal/abnor mal. # Lymphs (test code = 3.61 See_Comment [Auto mated message] 414) The system [employer] generated this result transmitted ref erence range: 1.48 - 4 .50 K/L. The refe rence range was not u sed to interpret this result as normal/abnor mal. # Monos (test code = 0.86 See_Comment [Autom ated message] 415) The system [employer] generated this result transmitted ref erence range: 0.00 - 1 .30 K/L. The refe rence range was not u sed to interpret this result as normal/abnor mal. # Eos (test code = 416) 0.41 See_Comment [Au tomated message] The system [employer] generated this result transmitted ref erence range: 0.00 - 0 .50 K/L. The refe rence range was not u sed to interpret this result as normal/abnor mal. # Baso (test code = 417) 0.10 See_Comment [A utomated message] The system [employer] generated this result transmitted ref erence range: 0.00 - 0 .20 K/L. The refe rence range was not u sed to interpret this result as normal/abnor mal. Immature 0 % 0-0 Granulocytes-Relative (test code = 2801) Lab Interpretation (test Abnormal code = 49627-5) [facility] W/PLT COUNT & AUTO [id number] 20:51:36 Test Item Value Reference Range Interpretation Comments WHITE BLOOD CELL COUNT (BEAKER) 12.0 K/ L 4.0-10.0 H (test code = 775) RED BLOOD CELL COUNT (BEAKER) 4.84 M/ L 4.00-5.00 (test code = 761) HEMOGLOBIN (BEAKER) (test code = 15.0 GM/DL 12.0-15.5 410) HEMATOCRIT (BEAKER) (test code = 43.1 % 36.0-46.0 411) MEAN CORPUSCULAR VOLUME (BEAKER) 89.0 fL 82.0-99.0 (test code = 753) MEAN CORPUSCULAR HEMOGLOBIN 31.0 pg 27.0-33.0 (BEAKER) (test code = 751) MEAN CORPUSCULAR HEMOGLOBIN CONC 34.8 GM/DL 32.0-36.0 (BEAKER) (test code = 752) RED CELL DISTRIBUTION WIDTH 12.8 % 12.0-15.0 (BEAKER) (test code = 412) PLATELET COUNT (BEAKER) (test 478 K/CU MM 150-430 H code = 756) MEAN PLATELET VOLUME (BEAKER) 9.7 fL 6.0-11.5 (test code = 754) NUCLEATED RED BLOOD CELLS 0 /100 WBC 0-0 (BEAKER) (test code = 413) NEUTROPHILS RELATIVE PERCENT 58 % (BEAKER) (test code = 429) LYMPHOCYTES RELATIVE PERCENT 30 % (BEAKER) (test code = 430) MONOCYTES RELATIVE PERCENT 7 % (BEAKER) (test code = 431) EOSINOPHILS RELATIVE PERCENT 3 % (BEAKER) (test code = 432) BASOPHILS RELATIVE PERCENT 1 % (BEAKER) (test code = 437) NEUTROPHILS ABSOLUTE COUNT 7.01 K/ L 1.80-8.00 (BEAKER) (test code = 670) LYMPHOCYTES ABSOLUTE COUNT 3.61 K/ L 1.48-4.50 (BEAKER) (test code = 414) MONOCYTES ABSOLUTE COUNT (BEAKER) 0.86 K/ L 0.00-1.30 (test code = 415) EOSINOPHILS ABSOLUTE COUNT 0.41 K/ L 0.00-0.50 (BEAKER) (test code = 416) BASOPHILS ABSOLUTE COUNT (BEAKER) 0.10 K/ L 0.00-0.20 (test code = 417) IMMATURE GRANULOCYTES-RELATIVE 0 % 0-0 PERCENT (BEAKER) (test code = 2801) ECG 12 [id number] 05:31:10 Test Item Value Reference Range Interpretation Comments Ventricular rate (test code = 253) Atrial rate (test code = 255) ND interval (test code = 266) QRSD interval (test code = 260) QT interval (test code = 264) QTC interval (test code = 265) P axis 1 (test code = 267) QRS axis 1 (test code = 268) T wave axis (test code = 270) EKG impression (test Sinus code = 273) tachycardia-Otherwise normal ECG-In automated comparison with ECG of 17-SEP-2020 04:27,-Vent. rate has increased BY 62 BPM-Electronically Signed By Kimberli MCDUFFIE, [facility] ([id number]) on 12/05/2020 12:31:09 AM [facility] [id number] 01:10:19 Test Item Value Reference Range Interpretation Comments Urine culture (test SEE COMMENT Bacteriu mario screen code = 4508161) negative. [facility][U] XRAY HAND MIN 3 VWS RIGHT [id number] 15:17:00Images acquired, not reported on this accession number.IN PhysiciansSARS-COV2/RT-PCR ([facility] & REF LABS)2020-02-22 21:37:00 Test Item Value Reference Range Interpretation Comments SARS-COV2/RT-PCR (test code = Positive Not Detected, Negative A A [id number]) SARS-COV-2 PERFORMING LAB CPL (test code = 7978563) CT, CHEST, WITHOUT [id number] 00:54:00Reason for exam:->cough, ?covidIs the patient ?->NoWhat is the patient's sedation requi rement?->No SedationFINAL REPORT CT, CHEST, WITHOUT CONTRAST INDICATION: Shortness of breathcough, ?covid COMPARISON: 10/12/2019 TECHNIQUE: Axially oriented images were obtained from the thoracic inlet through the lung bases without IV contrast administration. Coronal and sagittal reformats were provided. DOSE REDUCTION: Dose modulation, iterative reconstruction, and/or weight-based adjustment of the mA/kV was utilized to reduce the radiation dose to as low as reasonably achievable. FINDINGS: Lungs and Pleura: Bilateral peripheral ground glass opacities predominantly within the lower lobe with minimal involvement of the the upper lobes. No effusion or pneumothorax. Right lung calcified granuloma. Central airways: Patent. Mediastinum: No adenopathy. Heart and pericardium: No acute findings. Great vessels: Normal calibers. Included upper abdomen: No acute abnormalities. Regional skeletal structures: Intact. Additional findings: None. IMPRESSION: Commonly reported imaging features of (COVID-19 or viral) pneumonia are present. Other processes such as influenza pneumonia and organizing pneumonia, as can be seen with drug toxicity and connective tissue disorder, can cause a similar imaging pattern. Signed: Aneudy Diaz MDReport Verified Date/Time: 02/21/2020 00:54:38 PREGNANCY SCREEN, [id number] 00:28:00 Test Item Value Reference Range Interpretation Comments TEST URINE (BEAKER) (test Negative code = 583) CBC W/PLT COUNT & AUTO [id number] 22:46:00 Test Item Value Reference Range Interpretation Comments WHITE BLOOD CELL COUNT (BEAKER) 9.8 K/ L 4.0-10.0 (test code = 775) RED BLOOD CELL COUNT (BEAKER) 4.55 M/ L 4.00-5.00 (test code = 761) HEMOGLOBIN (BEAKER) (test code = 14.0 GM/DL 12.0-15.5 410) HEMATOCRIT (BEAKER) (test code = 40.5 % 36.0-46.0 411) MEAN CORPUSCULAR VOLUME (BEAKER) 89.0 fL 82.0-99.0 (test code = 753) MEAN CORPUSCULAR HEMOGLOBIN 30.8 pg 27.0-33.0 (BEAKER) (test code = 751) MEAN CORPUSCULAR HEMOGLOBIN CONC 34.6 GM/DL 32.0-36.0 (BEAKER) (test code = 752) RED CELL DISTRIBUTION WIDTH 12.6 % 12.0-15.0 (BEAKER) (test code = 412) PLATELET COUNT (BEAKER) (test 462 K/CU MM 150-430 H code = 756) MEAN PLATELET VOLUME (BEAKER) 9.6 fL 6.0-11.5 (test code = 754) NUCLEATED RED BLOOD CELLS 0 /100 WBC 0-0 (BEAKER) (test code = 413) NEUTROPHILS RELATIVE PERCENT 54 % (BEAKER) (test code = 429) LYMPHOCYTES RELATIVE PERCENT 35 % (BEAKER) (test code = 430) MONOCYTES RELATIVE PERCENT 8 % (BEAKER) (test code = 431) EOSINOPHILS RELATIVE PERCENT 2 % (BEAKER) (test code = 432) BASOPHILS RELATIVE PERCENT 1 % (BEAKER) (test code = 437) NEUTROPHILS ABSOLUTE COUNT 5.30 K/ L 1.80-8.00 (BEAKER) (test code = 670) LYMPHOCYTES ABSOLUTE COUNT 3.47 K/ L 1.48-4.50 (BEAKER) (test code = 414) MONOCYTES ABSOLUTE COUNT (BEAKER) 0.74 K/ L 0.00-1.30 (test code = 415) EOSINOPHILS ABSOLUTE COUNT 0.22 K/ L 0.00-0.50 (BEAKER) (test code = 416) BASOPHILS ABSOLUTE COUNT (BEAKER) 0.07 K/ L 0.00-0.20 (test code = 417) IMMATURE GRANULOCYTES-RELATIVE 0 % 0-0 PERCENT (BEAKER) (test code = 2801) LACTIC ACID, [id number] 22:30:00 Test Item Value Reference Range Interpretation Comments LACTATE BLOOD VENOUS 1.38 mmol/L 0.50-2.00 Specime n slightly (2) (BEAKER) (test hemolyzed code = 2872) Manager Asset ID - JUSTINBASIC METABOLIC [id number] 22:10:00 Test Item Value Reference Range Interpretation Comments SODIUM (BEAKER) 140 meq/L 135-148 (test code = 381) POTASSIUM (BEAKER) 4.2 meq/L 3.6-5.5 Specimen slightly (test code = 379) hemolyzed CHLORIDE (BEAKER) 110 meq/L 98-106 H (test code = 382) CO2 (BEAKER) (test 22 meq/L 20-29 code = 355) BLOOD UREA NITROGEN 7 mg/dL 10-26 L (BEAKER) (test code = 354) CREATININE (BEAKER) 0.75 mg/dL 0.50-1.20 Specimen slightly (test code = 358) hemolyzed GLUCOSE RANDOM 91 mg/dL 70-110 (BEAKER) (test code = 652) CALCIUM (BEAKER) 8.6 mg/dL 8.5-10.5 (test code = 697) EGFR (BEAKER) (test 83 mL/min/1.73 ESTIMA GAYE GFR IS code = 1092) sq m NOT ACCURATE CREATININE CLEARANCE IN PREDICTING GLOMERULAR FILTRATION RATE . ESTIMATED GFR I S NOT APPLICABLE FOR DIALYSIS PATIEN TS. Manager Asset ID - [id number] 22:09:00 Test Item Value Reference Range Interpretation Comments TROPONIN I (BEAKER) (test code = 397) < ng/mL 0.00-0.15 Troponin I (TnI) levels must be interpreted in the context of the presenting symptoms and the clinical findings. Elevated TnI levels indicate myocardial damage, but are not specific for ischemic heart disease. Elevated TnI levels are seen in patients with other cardiac conditions (including myocarditis and congestive heart failure), and slight TnI elevations occur in patients with other conditions, including sepsis, renal failure, acidosis, acute neurological disease, and persistent tachyarrhythmia.Manager Asset ID - [id number], CHEST, 1 VIEW, NON [id number] 20:58:00Reason for exam:->coughIs the patient ?- >NoShould this be performed at the bedside?->YesFINAL REPORT RAD, CHEST, 1 VIEW, NON DEPT CLINICAL HISTORY: cough TECHNIQUE:Single view of the chest. COMPARISON: October 12, 2019 IMPRESSION: There are no focal infiltrates or effusions. No pneumothorax. The cardiomediastinal silhouette is magnified by technique. The osseous structures appear intact. Signed: Aneudy Diaz MDReport Verified Date/Time: 02/20/2020 20:58:56 SARS-COV2/RT-PCR ([facility] & REF LABS)2020-02-06 03:25:00 Test Item Value Reference Range Interpretation Comments SARS-COV2/RT-PCR (test code = Positive Not Detected, Negative A A [id number]) SARS-COV-2 PERFORMING LAB CPL (test code = 0798593) URINALYSIS W/ [id number] 08:24:00 Test Item Value Reference Range Interpretation Comments COLOR (BEAKER) (test code = Yellow 470) CLARITY (BEAKER) (test code = Slightly Cloudy 469) SPECIFIC GRAVITY UA (BEAKER) 1.010 1.001-1.035 (test code = 468) PH UA (BEAKER) (test code = 6.0 5.0-8.0 467) PROTEIN UA (BEAKER) (test Negative Negative code = 464) GLUCOSE UA (BEAKER) (test Negative Negative code = 365) KETONES UA (BEAKER) (test 40 mg/dL Negative A code = 371) BILIRUBIN UA (BEAKER) (test Negative Negative code = 462) BLOOD UA (BEAKER) (test code Moderate Negative A = 461) NITRITE UA (BEAKER) (test Negative Negative code = 465) LEUKOCYTE ESTERASE UA Negative Negative (BEAKER) (test code = 466) UROBILINOGEN UA (BEAKER) 0.2 mg/dL 0.2-1.0 (test code = 463) BACTERIA (BEAKER) (test code Many = 517) RBC UA-MANUAL (BEAKER) (test <5 /HPF code = 1659) WBC UA-MANUAL (BEAKER) (test <5 /HPF code = 1661) SQUAMOUS EPITHELIAL MANUAL >100 /HPF (BEAKER) (test code = 1663) SOURCE(BEAKER) (test code = 2795) SCREEN, [id number] 08:00:00 Test Item Value Reference Range Interpretation Comments TEST URINE (BEAKER) (test Negative code = 583) RAD, ABDOMEN/KUB 1 VIEW [id number] 07:21:00Reason for exam:->FEVERReason for exam:->DIARRHEAReason for exam:->EMESISFINAL REPORT RAD, ABDOMEN/KUB 1 VIEW AP CLINICAL INDICATION: FEVERDIARRHEAEMESIS COMPARISON: None TECHNIQUE: Single, frontal radiograph of the abdomen. FINDINGS: The bowel gas pattern is nonspecific, but nonobstructive. IUD is present. The regional skeleton is intact. IMPRESSION: Nonspecific, nonobstructive bowel gas pattern. Signed: Ling Scott Verified Date/Time: 02/04/2020 07:21:42 Reading Location: [facility] Radiology Reading Room COMPREHENSIVE METABOLIC [id number] 07:14:00 Test Item Value Reference Range Interpretation Comments TOTAL PROTEIN 7.4 gm/dL 6.0-8.5 Specimen moder ately (BEAKER) (test code = hemoly zed 770) ALBUMIN (BEAKER) 3.9 g/dL 3.5-5.0 Specimen mo derately (test code = 1145) hemolyzed ALKALINE PHOSPHATASE 77 U/L 30-115 (BEAKER) (test code = 346) BILIRUBIN TOTAL 0.5 mg/dL 0.1-1.2 Specimen mod erately (BEAKER) (test code = hemoly zed 377) SODIUM (BEAKER) (test 134 meq/L 135-148 L code = 381) POTASSIUM (BEAKER) 4.1 meq/L 3.6-5.5 Specimen moderately (test code = 379) hemolyzed CHLORIDE (BEAKER) 105 meq/L 98-106 (test code = 382) CO2 (BEAKER) (test 18 meq/L 20-29 L code = 355) BLOOD UREA NITROGEN 9 mg/dL 10-26 L (BEAKER) (test code = 354) CREATININE (BEAKER) 0.73 mg/dL 0.50-1.20 Specimen moderately (test code = 358) hemolyzed GLUCOSE RANDOM 110 mg/dL 70-110 (BEAKER) (test code = 652) CALCIUM (BEAKER) 8.4 mg/dL 8.5-10.5 L (test code = 697) AST (SGOT) (BEAKER) 27 U/L 5-40 Specimen moderately (test code = 353) hemolyzed ALT (SGPT) (BEAKER) 29 U/L 5-50 Specimen moderately (test code = 347) hemolyzed EGFR (BEAKER) (test 86 mL/min/1.73 ESTIMA GAYE GFR IS code = 1092) sq m NOT ACCURATE CREATININE CLEARANCE IN PREDICTING GLOMERULAR FILTRATION RATE . ESTIMATED GFR I S NOT APPLICABLE FOR DIALYSIS PATIEN TS. Manager Asset ID - [id number] 06:59:00 Test Item Value Reference Range Interpretation Comments LIPASE (BEAKER) (test code = 749) 9 U/L 6-51 Manager Asset ID - AGONZALEZCBC W/PLT COUNT & AUTO [id number] 06:41:00 Test Item Value Reference Range Interpretation Comments WHITE BLOOD CELL COUNT (BEAKER) 5.1 K/ L 4.0-10.0 (test code = 775) RED BLOOD CELL COUNT (BEAKER) 4.81 M/ L 4.00-5.00 (test code = 761) HEMOGLOBIN (BEAKER) (test code = 14.9 GM/DL 12.0-15.5 410) HEMATOCRIT (BEAKER) (test code = 43.5 % 36.0-46.0 411) MEAN CORPUSCULAR VOLUME (BEAKER) 90.4 fL 82.0-99.0 (test code = 753) MEAN CORPUSCULAR HEMOGLOBIN 31.0 pg 27.0-33.0 (BEAKER) (test code = 751) MEAN CORPUSCULAR HEMOGLOBIN CONC 34.3 GM/DL 32.0-36.0 (BEAKER) (test code = 752) RED CELL DISTRIBUTION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 (BEAKER) (test code = 752) RED CELL DISTRIBUTION WIDTH 15.2 % 10.3-14.2 H (BEAKER) (test code = 412) PLATELET COUNT (BEAKER) (test 410 K/CU MM 150-430 code = 756) MEAN PLATELET VOLUME (BEAKER) 8.1 fL 6.5-10.5 (test code = 754) NUCLEATED RED BLOOD CELLS 0 /100 WBC 0-0 (BEAKER) (test code = 413) NEUTROPHILS RELATIVE PERCENT 64 % (BEAKER) (test code = 429) LYMPHOCYTES RELATIVE PERCENT 26 % (BEAKER) (test code = 430) MONOCYTES RELATIVE PERCENT 7 % (BEAKER) (test code = 431) EOSINOPHILS RELATIVE PERCENT 2 % (BEAKER) (test code = 432) BASOPHILS RELATIVE PERCENT 1 % (BEAKER) (test code = 437) NEUTROPHILS ABSOLUTE COUNT 7.20 K/ L 1.80-8.00 (BEAKER) (test code = 670) LYMPHOCYTES ABSOLUTE COUNT 3.00 K/ L 1.48-4.50 (BEAKER) (test code = 414) MONOCYTES ABSOLUTE COUNT (BEAKER) 0.80 K/ L 0.00-1.30 (test code = 415) EOSINOPHILS ABSOLUTE COUNT 0.20 K/ L 0.00-0.50 (BEAKER) (test code = 416) BASOPHILS ABSOLUTE COUNT (BEAKER) 0.10 K/ L 0.00-0.20 (test code = 417) BASIC METABOLIC [id number] 21:32:00 Test Item Value Reference Range Interpretation Comments SODIUM (BEAKER) 138 meq/L 135-148 (test code = 381) POTASSIUM (BEAKER) 5.1 meq/L 3.6-5.5 (test code = 379) CHLORIDE (BEAKER) 109 meq/L 98-106 H (test code = 382) CO2 (BEAKER) (test 18 meq/L 20-29 L code = 355) BLOOD UREA NITROGEN 9 mg/dL 10-26 L (BEAKER) (test code = 354) CREATININE (BEAKER) 0.80 mg/dL 0.50-1.20 (test code = 358) GLUCOSE RANDOM 116 mg/dL 70-110 H (BEAKER) (test code = 652) CALCIUM (BEAKER) 8.6 mg/dL 8.5-10.5 (test code = 697) EGFR (BEAKER) (test 78 mL/min/1.73 ESTIMA GAYE GFR IS code = 1092) sq m NOT ACCURATE CREATININE CLEARANCE IN PREDICTING GLOMERULAR FILTRATION RATE . ESTIMATED GFR I S NOT APPLICABLE FOR DIALYSIS PATIEN TS. LACTIC ACID, VENOUS, WHOLE [id number] 21:19:00 Test Item Value Reference Range Interpretation Comments LACTATE BLOOD VENOUS 0.9 mmol/L 0.5-2.2 Specime n slightly (2) (BEAKER) (test hemolyzed code = 2872) Effective 12/15/2015: Units/Reference Range ChangeNew: 0.5-2.2 mmol/L Previous: 5-18 mg/dLCBC W/PLT COUNT & AUTO [id number] 21:07:00 Test Item Value Reference Range Interpretation Comments WHITE BLOOD CELL COUNT (BEAKER) 7.8 K/ L 4.0-10.0 (test code = 775) RED BLOOD CELL COUNT (BEAKER) 5.04 M/ L 4.00-5.00 H (test code = 761) HEMOGLOBIN (BEAKER) (test code = 12.9 GM/DL 12.0-15.0 410) HEMATOCRIT (BEAKER) (test code = 40.5 % 36.0-45.0 411) MEAN CORPUSCULAR VOLUME (BEAKER) 80.4 fL 82.0-99.0 L (test code = 753) MEAN CORPUSCULAR HEMOGLOBIN 25.6 pg 27.0-33.0 L (BEAKER) (test code = 751) MEAN CORPUSCULAR HEMOGLOBIN CONC 31.8 GM/DL 32.0-36.0 L (BEAKER) (test code = 752) RED CELL DISTRIBUTION WIDTH 17.2 % 10.3-14.2 H (BEAKER) (test code = 412) PLATELET COUNT (BEAKER) (test 416 K/CU MM 150-430 code = 756) MEAN PLATELET VOLUME (BEAKER) 8.5 fL 6.5-10.5 (test code = 754) NUCLEATED RED BLOOD CELLS 0 /100 WBC 0-0 (BEAKER) (test code = 413) NEUTROPHILS RELATIVE PERCENT 53 % (BEAKER) (test code = 429) LYMPHOCYTES RELATIVE PERCENT 37 % (BEAKER) (test code = 430) MONOCYTES RELATIVE PERCENT 7 % (BEAKER) (test code = 431) EOSINOPHILS RELATIVE PERCENT 3 % (BEAKER) (test code = 432) BASOPHILS RELATIVE PERCENT 1 % (BEAKER) (test code = 437) NEUTROPHILS ABSOLUTE COUNT 4.20 K/ L 1.80-8.00 (BEAKER) (test code = 670) LYMPHOCYTES ABSOLUTE COUNT 2.90 K/ L 1.48-4.50 (BEAKER) (test code = 414) MONOCYTES ABSOLUTE COUNT (BEAKER) 0.50 K/ L 0.00-1.30 (test code = 415) EOSINOPHILS ABSOLUTE COUNT 0.20 K/ L 0.00-0.50 (BEAKER) (test code = 416) BASOPHILS ABSOLUTE COUNT (BEAKER) 0.00 K/ L 0.00-0.20 (test code = 417) SCREEN, [id number] 18:50:00 Test Item Value Reference Range Interpretation Comments TEST URINE (BEAKER) (test Negative code = 583) URINE [id number] 09:20:00 Test Item Value Reference Range Interpretation Comments CULTURE (BEAKER) (test >100,000 col/mL skin code = 1095) irais (MANUAL DIFFERENTIAL)2016-11-07 16:54:00 Test Item Value Reference Range Interpretation Comments TOTAL COUNTED (BEAKER) (test code = 1351) WBC MORPHOLOGY (BEAKER) (test Normal code = 487) PLT MORPHOLOGY (BEAKER) (test Normal code = 486) ANISOCYTOSIS (BEAKER) (test code 1+ few = 961) HYPOCHROMIA (BEAKER) (test code = 2+ moderate 963) MICROCYTES (BEAKER) (test code = 2+ moderate 965) POLYCHROMATOPHILLIC RBCS(BEAKER) 1+ few (test code = 478) TARGET CELLS (BEAKER) (test code 1+ few = 480) CBC W/PLT COUNT & AUTO [id number] 16:52:00 Test Item Value Reference Range Interpretation Comments WHITE BLOOD CELL COUNT (BEAKER) 9.1 K/ L 4.0-10.0 (test code = 775) RED BLOOD CELL COUNT (BEAKER) 4.20 M/ L 4.00-5.00 (test code = 761) HEMOGLOBIN (BEAKER) (test code = 8.6 GM/DL 12.0-15.0 L 410) HEMATOCRIT (BEAKER) (test code = 29.3 % 36.0-45.0 L 411) MEAN CORPUSCULAR VOLUME (BEAKER) 69.9 fL 82.0-99.0 L (test code = 753) MEAN CORPUSCULAR HEMOGLOBIN 20.6 pg 27.0-33.0 L (BEAKER) (test code = 751) MEAN CORPUSCULAR HEMOGLOBIN CONC 29.5 GM/DL 32.0-36.0 L (BEAKER) (test code = 752) RED CELL DISTRIBUTION WIDTH 18.2 % 10.3-14.2 H (BEAKER) (test code = 412) PLATELET COUNT (BEAKER) (test 568 K/CU MM 150-430 H code = 756) MEAN PLATELET VOLUME (BEAKER) 7.8 fL 6.5-10.5 (test code = 754) NUCLEATED RED BLOOD CELLS 0 /100 WBC 0-0 (BEAKER) (test code = 413) NEUTROPHILS RELATIVE PERCENT 66 % (BEAKER) (test code = 429) LYMPHOCYTES RELATIVE PERCENT 25 % (BEAKER) (test code = 430) MONOCYTES RELATIVE PERCENT 7 % (BEAKER) (test code = 431) EOSINOPHILS RELATIVE PERCENT 2 % (BEAKER) (test code = 432) BASOPHILS RELATIVE PERCENT 1 % (BEAKER) (test code = 437) NEUTROPHILS ABSOLUTE COUNT 6.00 K/ L 1.80-8.00 (BEAKER) (test code = 670) LYMPHOCYTES ABSOLUTE COUNT 2.30 K/ L 1.48-4.50 (BEAKER) (test code = 414) MONOCYTES ABSOLUTE COUNT (BEAKER) 0.60 K/ L 0.00-1.30 (test code = 415) EOSINOPHILS ABSOLUTE COUNT 0.10 K/ L 0.00-0.50 (BEAKER) (test code = 416) BASOPHILS ABSOLUTE COUNT (BEAKER) 0.10 K/ L 0.00-0.20 (test code = 417) COMPREHENSIVE METABOLIC [id number] 16:28:00 Test Item Value Reference Range Interpretation Comments TOTAL PROTEIN 6.7 gm/dL 6.0-8.5 (BEAKER) (test code = 770) ALBUMIN (BEAKER) 3.8 g/dL 3.5-5.0 (test code = 1145) ALKALINE PHOSPHATASE 68 U/L 30-115 (BEAKER) (test code = 346) BILIRUBIN TOTAL 0.7 mg/dL 0.1-1.2 (BEAKER) (test code = 377) SODIUM (BEAKER) (test 140 meq/L 135-148 code = 381) POTASSIUM (BEAKER) 3.4 meq/L 3.6-5.5 L (test code = 379) CHLORIDE (BEAKER) 109 meq/L 98-106 H (test code = 382) CO2 (BEAKER) (test 23 meq/L 20-29 code = 355) BLOOD UREA NITROGEN 13 mg/dL 10-26 (BEAKER) (test code = 354) CREATININE (BEAKER) 0.70 mg/dL 0.50-1.20 (test code = 358) GLUCOSE RANDOM 120 mg/dL 70-110 H (BEAKER) (test code = 652) CALCIUM (BEAKER) 8.5 mg/dL 8.5-10.5 (test code = 697) AST (SGOT) (BEAKER) 9 U/L 5-40 (test code = 353) ALT (SGPT) (BEAKER) 12 U/L 5-50 (test code = 347) EGFR (BEAKER) (test 91 mL/min/1.73 ESTIMA GAYE GFR IS code = 1092) sq m NOT ACCURATE CREATININE CLEARANCE IN PREDICTING GLOMERULAR FILTRATION RATE . ESTIMATED GFR I S NOT APPLICABLE FOR DIALYSIS PATIEN TS. [id number] 16:22:00 Test Item Value Reference Range Interpretation Comments LIPASE (BEAKER) (test code = 749) 26 U/L 6-51 URINALYSIS W/ REFLEX URINE [id number] 15:52:00 Test Item Value Reference Range Interpretation Comments COLOR (BEAKER) (test code = Yellow 470) CLARITY (BEAKER) (test code = Slightly Cloudy 469) SPECIFIC GRAVITY UA (BEAKER) >= 1.001-1.035 (test code = 468) PH UA (BEAKER) (test code = 5.5 5.0-8.0 467) PROTEIN UA (BEAKER) (test Negative Negative code = 464) GLUCOSE UA (BEAKER) (test Negative Negative code = 365) KETONES UA (BEAKER) (test Negative Negative code = 371) BILIRUBIN UA (BEAKER) (test Negative Negative code = 462) BLOOD UA (BEAKER) (test code Negative Negative = 461) NITRITE UA (BEAKER) (test Negative Negative code = 465) LEUKOCYTE ESTERASE UA Negative Negative (BEAKER) (test code = 466) UROBILINOGEN UA (BEAKER) 0.2 mg/dL 0.2-1.0 (test code = 463) BACTERIA (BEAKER) (test code Few = 517) RBC UA-MANUAL (BEAKER) (test <5 /HPF code = 1659) WBC UA-MANUAL (BEAKER) (test 5-10 /HPF code = 1661) SQUAMOUS EPITHELIAL MANUAL 5-10 /HPF (BEAKER) (test code = 1663) SOURCE(BEAKER) (test code = 2795) SCREEN, [id number] 15:49:00 Test Item Value Reference Range Interpretation Comments TEST URINE (BEAKER) (test Negative code = 583) URINE AND [id number] 08:40:00 Test Item Value Reference Range Interpretation Comments UA Leuk Est (test code Trace *ABN*(02/13/16 3:40 = UA Leuk Est) AM) [facility] AND [id number] 08:40:00 Test Item Value Reference Range Interpretation Comments UA Nitrite (test code Negative (02/13/16 3:40 = UA Nitrite) AM) [facility] AND [id number] 08:40:00 Test Item Value Reference Range Interpretation Comments UA Urobilinogen (test code = UA 0.2 0.1-1.0 Urobilinogen) [facility] AND [id number] 08:40:00 Test Item Value Reference Range Interpretation Comments UA Ketones (test code Negative *NA*(02/13/16 = UA Ketones) 3:40 AM) [facility] AND [id number] 08:40:00 Test Item Value Reference Range Interpretation Comments UA Glucose (test code Negative (02/13/16 3:40 = UA Glucose) AM) [facility] AND [id number] 08:40:00 Test Item Value Reference Range Interpretation Comments UA Blood (test code = Large *ABN*(02/13/16 UA Blood) 3:40 AM) [facility] AND [id number] 08:40:00 Test Item Value Reference Range Interpretation Comments UA Bili (test code = Negative *NA*(02/13/16 UA Bili) 3:40 AM) [facility] AND [id number] 08:40:00 Test Item Value Reference Range Interpretation Comments UA Protein (test code = UA Protein) 30 mg/dL [facility] AND [id number] 08:40:00 Test Item Value Reference Range Interpretation Comments UA Spec Grav (test code = UA Spec 1.015 1 Grav) [facility] AND [id number] 08:40:00 Test Item Value Reference Range Interpretation Comments UA pH (test code = UA pH) 7.0 1 5.0-8.0 [facility] [id number] 08:40:00 Test Item Value Reference Range Interpretation Comments UA Color (test code = Red *ABN*(02/13/16 3:40 UA Color) AM) [facility] AND [id number] 08:40:00 Test Item Value Reference Range Interpretation Comments UA Turbidity (test code Bloody *ABN*(02/13/16 = UA Turbidity) 3:40 AM) [facility] AND [id number] 08:40:00 Test Item Value Reference Range Interpretation Comments UA Bacteria (test code = UA Occasional /HPF Bacteria) [facility] AND [id number] 08:40:00 Test Item Value Reference Range Interpretation Comments UA RBC (test Packed See_Comment [Automated mes shirley] code = UA RBC) *ABN*(02/13/16 3:40 The syst em which AM) generated this result transmitted ref erence range: <=2. The reference range was not used to int erpret this result as normal/abnormal . [facility] AND [id number] 08:40:00 Test Item Value Reference Range Interpretation Comments UA WBC (test code = UA WBC) 3-5 /HPF [facility] [id number] 08:40:00 Test Item Value Reference Range Interpretation Comments UA Sq Epi (test code = UA Sq Epi) Rare /LPF [facility] [employer] [id number] 06:44:00 Test Item Value Reference Range Interpretation Comments Antibody Scrn (test Negative (02/13/16 1:44 code = Antibody Scrn) AM) [employer] [id number] 06:44:00 Test Item Value Reference Range Interpretation Comments ABO/Rh (test code = ABO/Rh) A POS [employer] [id number] 06:44:00 Test Item Value Reference Range Interpretation Comments CK MB Index (test 1.6 See_Comment [Automate d message] The code = CK MB Index) system w [facility] generated this result transmit gaye reference range : <=2.5. The reference range was not used to interpr et this result as satish l/abnormal. [employer] [id number] 06:44:00 Test Item Value Reference Range Interpretation Comments CK MB (test code = CK MB) 0.9 0.5-3.6 [facility] [employer] [id number] 06:44:00 Test Item Value Reference Range Interpretation Comments Total CK (test code = Total CK) 57 12-191 [facility] [employer] [id number] 06:44:00 Test Item Value Reference Range Interpretation Comments Troponin-I (test code no gt See_Comment [Auto mated message] The = Troponin-I) system which g enerated this result transmit gaye reference range : <=0.40. The reference r ozzy was not used to interpr et this result as satish l/abnormal. [employer] [id number] 06:44:00 Test Item Value Reference Range Interpretation Comments Albumin Lvl (test code = Albumin Lvl) 3.5 3.5-5.0 [employer] [id number] 06:44:00 Test Item Value Reference Range Interpretation Comments Total Protein (test code = Total 7.0 6.4-8.4 Protein) [facility]2016-07-03 06:44:00 Test Item Value Reference Range Interpretation Comments ALT (test code = ALT) 19 See_Comment [Auto mated message] The system which ge nerated this result transmit gaye reference range : <=65. The reference range was not used to interpr et this result as satish l/abnormal. [place] [id number] 06:44:00 Test Item Value Reference Range Interpretation Comments AST (test code = AST) 10 See_Comment [Auto mated message] The system which ge nerated this result transmit gaye reference range : <=37. The reference range was not used to interpr et this result as satish l/abnormal. [facility] [id number] 06:44:00 Test Item Value Reference Range Interpretation Comments Alk Phos (test code = Alk Phos) 79 39-136 [place] [id number] 06:44:00 Test Item Value Reference Range Interpretation Comments Bili Total (test code = Bili Total) 0.4 0.2-1.3 [place] [id number] 06:44:00 Test Item Value Reference Range Interpretation Comments Bili Direct (test code 0.1 See_Comment [Aut omated message] The = Bili Direct) system which generated this result tra nsmitted reference range : <=0.3. The reference r ozzy was not used to int erpret this result as satish l/abnormal. [facility]2016-07-03 06:44:00 Test Item Value Reference Range Interpretation Comments Globulin (test code = Globulin) 3.5 2.0-4.0 [facility] [id number] 06:44:00 Test Item Value Reference Range Interpretation Comments A/G Ratio (test code = A/G Ratio) 1.0 0.7-1.6 [facility] [id number] 06:44:00 Test Item Value Reference Range Interpretation Comments Bili Indirect (test 0.3 See_Comment [Automa gaye message] The code = Bili Indirect) system which generated this result tra nsmitted reference range : <=1.0. The reference r ozzy was not used to int erpret this result as normal/abnormal . [facility] [id number] 06:44:00 Test Item Value Reference Range Interpretation Comments eGFR (test code = eGFR) 107 [facility]2016-07-03 06:44:00 Test Item Value Reference Range Interpretation Comments BUN (test code = BUN) 8 7-22 [facility]2016-07-03 06:44:00 Test Item Value Reference Range Interpretation Comments Glucose Lvl (test code = Glucose Lvl) 91 70-99 [facility]2016-07-03 06:44:00 Test Item Value Reference Range Interpretation Comments Sodium Lvl (test code = Sodium Lvl) 138 135-145 [facility]2016-07-03 06:44:00 Test Item Value Reference Range Interpretation Comments Creatinine Lvl (test code = Creatinine 0.70 0.50-1.40 Lvl) [facility]2016-07-03 06:44:00 Test Item Value Reference Range Interpretation Comments Potassium Lvl (test code = Potassium 3.3 3.5-5.1 Lvl) [facility]2016-07-03 06:44:00 Test Item Value Reference Range Interpretation Comments CO2 (test code = CO2) 25 24-32 [facility]2016-07-03 06:44:00 Test Item Value Reference Range Interpretation Comments Chloride Lvl (test code = Chloride Lvl) 106 95-109 [facility]2016-07-03 06:44:00 Test Item Value Reference Range Interpretation Comments Calcium Lvl (test code = Calcium Lvl) 8.1 8.5-10.5 [facility]2016-07-03 06:44:00 Test Item Value Reference Range Interpretation Comments AGAP (test code = AGAP) 10.3 10.0-20.0 [facility]2016-07-03 06:44:00 Test Item Value Reference Range Interpretation Comments Magnesium Lvl (test code = Magnesium 2.2 1.8-2.4 Lvl) [id number] 06:44:00 Test Item Value Reference Range Interpretation Comments S Preg (test code = S Negative *NA*(02/13/16 Preg) 1:44 AM) [facility] [id number] 06:44:00 Test Item Value Reference Range Interpretation Comments Basophils (test code = 0.1 See_Comment [Aut omated message] The Basophils) system which ge nerated this result tra nsmitted reference range : <=1.0. The reference r ozzy was not used to int erpret this result as normal/abnormal . [facility] [id number] 06:44:00 Test Item Value Reference Range Interpretation Comments Monocytes # (test code 0.3 See_Comment [Aut omated message] The = Monocytes #) system which generated this result tra nsmitted reference range : <=0.8. The reference r ozzy was not used to int erpret this result as normal/abnormal . [facility] [id number] 06:44:00 Test Item Value Reference Range Interpretation Comments Eosinophils # (test code 0.1 See_Comment [A utomated message] The = Eosinophils #) system whic h generated this result tra nsmitted reference range : <=0.5. The reference r ozzy was not used to int erpret this result as normal/abnormal . [facility] [id number] 06:44:00 Test Item Value Reference Range Interpretation Comments Segs-Bands # (test code = Segs-Bands #) 9.3 1.5-8.1 [facility] [id number] 06:44:00 Test Item Value Reference Range Interpretation Comments Lymphocytes # (test code = Lymphocytes 2.6 1.0-5.5 #) [facility] [id number] 06:44:00 Test Item Value Reference Range Interpretation Comments Basophils # (test code 0.0 See_Comment [Aut omated message] The = Basophils #) system which generated this result tra nsmitted reference range : <=0.2. The reference r ozzy was not used to int erpret this result as normal/abnormal . [facility] [id number] 06:44:00 Test Item Value Reference Range Interpretation Comments Microcyte (test code = 1+ *ABN*(02/13/16 1:44 Microcyte) AM) [facility] [id number] 06:44:00 Test Item Value Reference Range Interpretation Comments Giant Plt (test code Moderate *ABN*(02/13/16 = Giant Plt) 1:44 AM) [facility] [id number] 06:44:00 Test Item Value Reference Range Interpretation Comments Segs (test code = Segs) 75.2 45.0-75.0 [facility] [id number] 06:44:00 Test Item Value Reference Range Interpretation Comments Hypochrom (test code = 1+ (02/13/16 1:44 AM) Hypochrom) [facility] [id number] 06:44:00 Test Item Value Reference Range Interpretation Comments Eosinophils (test code = 0.7 See_Comment [A utomated message] The Eosinophils) system which ge nerated this result tra nsmitted reference range : <=4.0. The reference r ozzy was not used to int erpret this result as normal/abnormal . [facility] [id number] 06:44:00 Test Item Value Reference Range Interpretation Comments Lymphocytes (test code = Lymphocytes) 21.3 20.0-40.0 [facility] CenterYouelqdBAWHAUALYX0568-50-37 06:44:00 Test Item Value Reference Range Interpretation Comments Monocytes (test code = Monocytes) 2.7 2.0-12.0 [facility] CenterImizovcFUSPTRKHBN6571-39-34 06:44:00 Test Item Value Reference Range Interpretation Comments MPV (test code = MPV) 9.5 7.4-10.4 [facility] CenterWadgqljSLZHLETUCE9896-05-06 06:44:00 Test Item Value Reference Range Interpretation Comments RDW (test code = RDW) 17.8 11.5-14.5 [facility] CenterPypbcodDKJJEDKJXV4826-61-13 06:44:00 Test Item Value Reference Range Interpretation Comments MCV (test code = MCV) 73.2 80.0-98.0 [facility] CenterEoxxvvwSQVTMSOIBU9497-00-47 06:44:00 Test Item Value Reference Range Interpretation Comments MCH (test code = MCH) 21.9 pg 27.0-31.0 [facility] CenterJzolwkgTOPNZTKVYX8034-83-38 06:44:00 Test Item Value Reference Range Interpretation Comments Hct (test code = Hct) 27.2 36.0-48.0 [facility] CenterSuiaenvKWZYKCRGJS9273-36-69 06:44:00 Test Item Value Reference Range Interpretation Comments MCHC (test code = MCHC) 29.9 32.0-36.0 [facility] CenterReiadnzUSJMGAPXXL0177-55-59 06:44:00 Test Item Value Reference Range Interpretation Comments Platelet (test code = Platelet) 400 133-450 [facility] CenterHogupsbVXKTDZUHSM4019-62-88 06:44:00 Test Item Value Reference Range Interpretation Comments WBC (test code = WBC) 12.4 3.7-10.4 [facility]UwzfjyuZLVQNRKKUD5388-19-49 06:44:00 Test Item Value Reference Range Interpretation Comments RBC (test code = RBC) 3.72 4.20-5.40 [facility] HospitalIvglhkoXFEFNYTJZE3908-08-60 06:44:00 Test Item Value Reference Range Interpretation Comments Hgb (test code = Hgb) 8.1 12.0-16.0 [facility] HospitalFyoiuieWUQPDQISMU0292-27-13 06:44:00 Test Item Value Reference Range Interpretation Comments PTT (test code = PTT) 27.2 s 22.9-35.8 [facility] HospitalDtxeljoRNDRUYNULI3581-09-94 06:44:00 Test Item Value Reference Range Interpretation Comments PT (test code = PT) 14.7 s 12.0-14.7 [facility] HospitalAysxzoiHSDOZEKURH7384-65-66 06:44:00 Test Item Value Reference Range Interpretation Comments INR (test code = INR) 1.12 0.85-1.17 [facility] [employer] [id number] 07:51:00 Test Item Value Reference Range Interpretation Comments ABO/Rh (test code = ABO/Rh) A POS [facility] [employer] [id number] 07:51:00 Test Item Value Reference Range Interpretation Comments Antibody Scrn (test Negative (09/04/14 1:51 code = Antibody Scrn) AM) [facility] [employer] [id number] 07:51:00 Test Item Value Reference Range Interpretation Comments Albumin Lvl (test code = Albumin Lvl) 3.4 3.5-5.0 [facility] [employer] [id number] 07:51:00 Test Item Value Reference Range Interpretation Comments Alk Phos (test code = Alk Phos) 64 39-136 [facility] [employer] [id number] 07:51:00 Test Item Value Reference Range Interpretation Comments ALT (test code = ALT) 18 See_Comment [Auto mated message] The system which ge nerated this result transmit gaye reference range : <=65. The reference range was not used to interpr et this result as satish l/abnormal. [facility]2015-01-23 07:51:00 Test Item Value Reference Range Interpretation Comments AST (test code = AST) 12 See_Comment [Auto mated message] The system which ge nerated this result transmit gaye reference range : <=37. The reference range was not used to interpr et this result as satish l/abnormal. [facility]2015-01-23 07:51:00 Test Item Value Reference Range Interpretation Comments eGFR (test code = eGFR) 93 [facility]2015-01-23 07:51:00 Test Item Value Reference Range Interpretation Comments Bili Total (test code = Bili Total) 0.3 0.2-1.3 [place] [id number] 07:51:00 Test Item Value Reference Range Interpretation Comments Chloride Lvl (test code = Chloride Lvl) 108 95-109 [facility]2015-01-23 07:51:00 Test Item Value Reference Range Interpretation Comments Sodium Lvl (test code = Sodium Lvl) 138 135-145 [facility]2015-01-23 07:51:00 Test Item Value Reference Range Interpretation Comments Potassium Lvl (test code = Potassium 3.9 3.5-5.1 Lvl) [facility]2015-01-23 07:51:00 Test Item Value Reference Range Interpretation Comments CO2 (test code = CO2) - [facility]2015-01-23 07:51:00 Test Item Value Reference Range Interpretation Comments Calcium Lvl (test code = Calcium Lvl) 8.8 8.5-10.5 [facility]2015-01-23 07:51:00 Test Item Value Reference Range Interpretation Comments Glucose Lvl (test code = Glucose Lvl) 98 70-99 [facility]2015-01-23 07:51:00 Test Item Value Reference Range Interpretation Comments Total Protein (test code = Total 7.3 6.4-8.4 Protein) [facility]2015-01-23 07:51:00 Test Item Value Reference Range Interpretation Comments BUN (test code = BUN) 12 - [facility]2015-01-23 07:51:00 Test Item Value Reference Range Interpretation Comments Creatinine Lvl (test code = Creatinine 0.8 0.5-1.4 Lvl) [facility]2015-01-23 07:51:00 Test Item Value Reference Range Interpretation Comments AGAP (test code = AGAP) 11.9 10.0-20.0 [facility]2015-01-23 07:51:00 Test Item Value Reference Range Interpretation Comments B/C Ratio (test code = B/C Ratio) 15 6-25 [facility]2015-01-23 07:51:00 Test Item Value Reference Range Interpretation Comments Globulin (test code = Globulin) 3.9 2.0-4.0 [facility]2015-01-23 07:51:00 Test Item Value Reference Range Interpretation Comments A/G Ratio (test code = A/G Ratio) 0.9 0.7-1.6 [facility]BkixgrrLADSYPPUWDRGS2835-19-29 07:51:00 Test Item Value Reference Range Interpretation Comments hCG Tot (test code = hCG Tot) no gt [facility] CenterChykgtrZQUIVRQLVI0016-04-97 07:51:00 Test Item Value Reference Range Interpretation Comments MCHC (test code = MCHC) 33.8 32.0-36.0 [facility] CenterHvgvukcROCABTFDQM3966-35-03 07:51:00 Test Item Value Reference Range Interpretation Comments MCH (test code = MCH) 30.3 pg 27.0-31.0 [facility] CenterXdcndkxFNDVSNRJKX6953-81-76 07:51:00 Test Item Value Reference Range Interpretation Comments RDW (test code = RDW) 13.0 11.5-14.5 [facility] CenterTuiuntcEUHNGMMKJZ1521-74-07 07:51:00 Test Item Value Reference Range Interpretation Comments MPV (test code = MPV) 8.4 7.4-10.4 [facility] CenterLxsfereLQEJXJAKQI7249-47-95 07:51:00 Test Item Value Reference Range Interpretation Comments Platelet (test code = Platelet) 356 133-450 [facility] CenterUfrtpasSSXMCIZIEK2273-34-20 07:51:00 Test Item Value Reference Range Interpretation Comments RBC (test code = RBC) 4.45 4.20-5.40 [facility] CenterUfxfkhdARNBWRDHZY2662-55-27 07:51:00 Test Item Value Reference Range Interpretation Comments WBC (test code = WBC) 12.9 3.7-10.4 [facility] CenterNiybhvvJYWHXRTPOQ0751-25-45 07:51:00 Test Item Value Reference Range Interpretation Comments Hgb (test code = Hgb) 13.5 12.0-16.0 [facility] CenterFhrfcboNCJTCCKXAG3218-31-14 07:51:00 Test Item Value Reference Range Interpretation Comments MCV (test code = MCV) 89.7 80.0-98.0 [facility] CenterHmzqspiSEXOYPTQBR5127-88-79 07:51:00 Test Item Value Reference Range Interpretation Comments Hct (test code = Hct) 39.9 36.0-48.0 [facility] CenterIguiasxXVDUEKAKIU0543-56-38 07:51:00 Test Item Value Reference Range Interpretation Comments Eosinophils # (test code 0.3 See_Comment [A utomated message] The = Eosinophils #) system whic h generated this result tra nsmitted reference range : <=0.5. The reference r ozzy was not used to int erpret this result as normal/abnormal . [facility] CenterRptpwnvPGUDMTTECR8751-67-05 07:51:00 Test Item Value Reference Range Interpretation Comments Lymphocytes # (test code = Lymphocytes 3.6 1.0-5.5 #) [facility] CenterFsakxymJVVGYPVCNL0344-42-25 07:51:00 Test Item Value Reference Range Interpretation Comments Monocytes # (test code 0.7 See_Comment [Aut omated message] The = Monocytes #) system which generated this result tra nsmitted reference range : <=0.8. The reference r ozzy was not used to int erpret this result as normal/abnormal . [facility] CenterWwahegfYNEELGKEGI4685-69-58 07:51:00 Test Item Value Reference Range Interpretation Comments Segs (test code = Segs) 63.9 45.0-75.0 [facility] CenterZcaldigRNLBDPMKDU1661-79-37 07:51:00 Test Item Value Reference Range Interpretation Comments Segs-Bands # (test code = Segs-Bands #) 8.2 1.5-8.1 [facility] CenterKrthuxjHWTDFNRIXP8933-26-73 07:51:00 Test Item Value Reference Range Interpretation Comments Basophils (test code = 0.7 See_Comment [Aut omated message] The Basophils) system which ge nerated this result tra nsmitted reference range : <=1.0. The reference r ozzy was not used to int erpret this result as normal/abnormal . [facility] CenterUvhjsqrPWMDYCTTUW2160-24-80 07:51:00 Test Item Value Reference Range Interpretation Comments Monocytes (test code = Monocytes) 5.4 2.0-12.0 [facility] CenterYzfkbibKUOHTVJQSO6609-11-98 07:51:00 Test Item Value Reference Range Interpretation Comments Eosinophils (test code = 2.3 See_Comment [A utomated message] The Eosinophils) system which ge nerated this result tra nsmitted reference range : <=4.0. The reference r ozzy was not used to int erpret this result as normal/abnormal . [facility] CenterNzitedeTIAPAUNFYW9460-04-55 07:51:00 Test Item Value Reference Range Interpretation Comments Lymphocytes (test code = Lymphocytes) 27.7 20.0-40.0 [facility] CenterJmqevkqMXQCBBZGNG7708-96-68 07:51:00 Test Item Value Reference Range Interpretation Comments Basophils # (test code 0.1 See_Comment [Aut omated message] The = Basophils #) system which generated this result tra nsmitted reference range : <=0.2. The reference r ozzy was not used to int erpret this result as normal/abnormal . [facility] [id number] 07:51:00 Test Item Value Reference Range Interpretation Comments UA Urobilinogen (test code = UA 1.0 0.1-1.0 Urobilinogen) [facility] [id number] 07:51:00 Test Item Value Reference Range Interpretation Comments UA Turbidity (test code Cloudy *ABN*(09/04/14 = UA Turbidity) 1:51 AM) [facility] [id number] 07:51:00 Test Item Value Reference Range Interpretation Comments UA Color (test code = Red *ABN*(09/04/14 1:51 UA Color) AM) [facility] [id number] 07:51:00 Test Item Value Reference Range Interpretation Comments UA Ketones (test code Negative *NA*(09/04/14 = UA Ketones) 1:51 AM) [facility] [id number] 07:51:00 Test Item Value Reference Range Interpretation Comments UA Glucose (test code Negative (09/04/14 1:51 = UA Glucose) AM) [facility] [id number] 07:51:00 Test Item Value Reference Range Interpretation Comments UA Protein (test code = Trace *ABN*(09/04/14 UA Protein) 1:51 AM) [facility] [id number] 07:51:00 Test Item Value Reference Range Interpretation Comments UA pH (test code = UA pH) 8.0 1 5.0-8.0 [facility] [id number] 07:51:00 Test Item Value Reference Range Interpretation Comments UA Spec Grav (test code = UA Spec 1.015 1 Grav) [facility] [id number] 07:51:00 Test Item Value Reference Range Interpretation Comments UA Bili (test code = Negative *NA*(09/04/14 UA Bili) 1:51 AM) [facility] [id number] 07:51:00 Test Item Value Reference Range Interpretation Comments UA Blood (test code = Large *ABN*(09/04/14 UA Blood) 1:51 AM) [facility] [id number] 07:51:00 Test Item Value Reference Range Interpretation Comments UA Leuk Est (test Negative (09/04/14 1:51 code = UA Leuk Est) AM) [facility] [id number] 07:51:00 Test Item Value Reference Range Interpretation Comments UA Nitrite (test code Negative (09/04/14 1:51 = UA Nitrite) AM) [facility] [id number] 07:51:00 Test Item Value Reference Range Interpretation Comments UA Amorph Joselin (test code = UA Few /HPF Amorph Joselin) [facility] [id number] 07:51:00 Test Item Value Reference Range Interpretation Comments UA RBC (test code 51-100 /HPF See_Comment [Automate d message] The = UA RBC) system which ge nerated this result tra nsmitted reference range : <=2. The reference r ozzy was not used to int erpret this result as normal/abnormal . [facility] [id number] 07:51:00 Test Item Value Reference Range Interpretation Comments UA WBC (test code = UA WBC) 6-10 /HPF [facility] [id number] 07:51:00 Test Item Value Reference Range Interpretation Comments UA Bacteria (test code = UA Few /HPF Bacteria) [facility] [id number] 07:51:00 Test Item Value Reference Range Interpretation Comments UA Sq Epi (test code = UA Sq Occasional /LPF Epi) [facility]2015-01-12 19:24:00 Test Item Value Reference Range Interpretation Comments Lipase Lvl (test code = Lipase Lvl) 104 73-393 [facility]2015-01-12 19:24:00 Test Item Value Reference Range Interpretation Comments eGFR (test code = eGFR) 109 [facility]2015-01-12 19:24:00 Test Item Value Reference Range Interpretation Comments Bili Total (test code = Bili Total) 0.6 0.2-1.3 [facility]2015-01-12 19:24:00 Test Item Value Reference Range Interpretation Comments Alk Phos (test code = Alk Phos) 72 39-136 [facility]2015-01-12 19:24:00 Test Item Value Reference Range Interpretation Comments Calcium Lvl (test code = Calcium Lvl) 8.8 8.5-10.5 [facility]2015-01-12 19:24:00 Test Item Value Reference Range Interpretation Comments CO2 (test code = CO2) 28 24-32 [facility]2015-01-12 19:24:00 Test Item Value Reference Range Interpretation Comments Chloride Lvl (test code = Chloride Lvl) 107 95-109 [facility]2015-01-12 19:24:00 Test Item Value Reference Range Interpretation Comments Potassium Lvl (test code = Potassium 3.9 3.5-5.1 Lvl) [facility]2015-01-12 19:24:00 Test Item Value Reference Range Interpretation Comments Glucose Lvl (test code = Glucose Lvl) 90 70-99 [facility]2015-01-12 19:24:00 Test Item Value Reference Range Interpretation Comments Sodium Lvl (test code = Sodium Lvl) 138 135-145 [facility]2015-01-12 19:24:00 Test Item Value Reference Range Interpretation Comments BUN (test code = BUN) 7 7-22 [facility]2015-01-12 19:24:00 Test Item Value Reference Range Interpretation Comments Creatinine Lvl (test code = Creatinine 0.7 0.5-1.4 Lvl) [place] [id number] 19:24:00 Test Item Value Reference Range Interpretation Comments ALT (test code = ALT) 23 See_Comment [Auto mated message] The system which ge nerated this result transmit gaye reference range : <=65. The reference range was not used to interpr et this result as satish l/abnormal. [facility]2015-01-12 19:24:00 Test Item Value Reference Range Interpretation Comments AST (test code = AST) 12 See_Comment [Auto mated message] The system which ge nerated this result transmit gaye reference range : <=37. The reference range was not used to interpr et this result as satish l/abnormal. [place] [id number] 19:24:00 Test Item Value Reference Range Interpretation Comments Albumin Lvl (test code = Albumin Lvl) 3.8 3.5-5.0 [facility]2015-01-12 19:24:00 Test Item Value Reference Range Interpretation Comments Total Protein (test code = Total 8.0 6.4-8.4 Protein) [facility]2015-01-12 19:24:00 Test Item Value Reference Range Interpretation Comments A/G Ratio (test code = A/G Ratio) 0.9 0.7-1.6 [facility]2015-01-12 19:24:00 Test Item Value Reference Range Interpretation Comments AGAP (test code = AGAP) 6.9 10.0-20.0 [facility]2015-01-12 19:24:00 Test Item Value Reference Range Interpretation Comments B/C Ratio (test code = B/C Ratio) 10 6-25 [facility]2015-01-12 19:24:00 Test Item Value Reference Range Interpretation Comments Globulin (test code = Globulin) 4.2 2.0-4.0 [facility]EdrvlavVRVXCTSSEHIUC5961-66-69 19:24:00 Test Item Value Reference Range Interpretation Comments S Preg (test code = S Negative *NA*(08/24/14 Preg) 1:24 PM) [facility] CenterIsesrycXQUPZBPXUD5657-85-05 19:24:00 Test Item Value Reference Range Interpretation Comments WBC (test code = WBC) 11.3 3.7-10.4 [facility] CenterJgwnsbrWYZZOWZELX2022-45-78 19:24:00 Test Item Value Reference Range Interpretation Comments RBC (test code = RBC) 4.75 4.20-5.40 [facility] CenterXmyrhmzBJANFIXMDH5626-39-27 19:24:00 Test Item Value Reference Range Interpretation Comments Platelet (test code = Platelet) 402 133-450 [facility] CenterVkkrfidUSYZVEZZMC1194-95-15 19:24:00 Test Item Value Reference Range Interpretation Comments MCV (test code = MCV) 89.9 80.0-98.0 [facility] CenterZdgulszTMUEJMFQYH9976-58-28 19:24:00 Test Item Value Reference Range Interpretation Comments Hct (test code = Hct) 42.7 36.0-48.0 [facility] CenterZvuewecOPWYXTDYVE1885-60-12 19:24:00 Test Item Value Reference Range Interpretation Comments Hgb (test code = Hgb) 14.5 12.0-16.0 [facility] CenterTnyqihcPFQXLTMBDK0066-72-71 19:24:00 Test Item Value Reference Range Interpretation Comments RDW (test code = RDW) 13.5 11.5-14.5 [facility] CenterJrzhgtzUIQNGEAPEA9590-50-94 19:24:00 Test Item Value Reference Range Interpretation Comments MCHC (test code = MCHC) 34.0 32.0-36.0 [facility] CenterSysnzfuTWUAHMPXIL6391-92-57 19:24:00 Test Item Value Reference Range Interpretation Comments MCH (test code = MCH) 30.6 pg 27.0-31.0 [facility] CenterJtyandaSHCZZHIXIA8532-38-35 19:24:00 Test Item Value Reference Range Interpretation Comments MPV (test code = MPV) 8.1 7.4-10.4 [facility] CenterMhqjxqdOCPYPPZHRP5333-32-54 19:24:00 Test Item Value Reference Range Interpretation Comments Stomatocyte (test code = Stomatocyte) Slight [facility] CenterJsdfvtyEOESJQPPIE4591-08-58 19:24:00 Test Item Value Reference Range Interpretation Comments Basophils # (test code 0.1 See_Comment [Aut omated message] The = Basophils #) system which generated this result tra nsmitted reference range : <=0.2. The reference r ozzy was not used to int erpret this result as normal/abnormal . [facility] CenterBqxehlqIEGEUXWVOU2757-73-87 19:24:00 Test Item Value Reference Range Interpretation Comments Eosinophils # (test code 0.2 See_Comment [A utomated message] The = Eosinophils #) system ic h generated this result tra nsmitted reference range : <=0.5. The reference r ozzy was not used to int erpret this result as normal/abnormal . [facility] CenterDzezjbvSUFGHDEEHM2341-33-18 19:24:00 Test Item Value Reference Range Interpretation Comments Hypochrom (test code = 1+ (08/24/14 1:24 PM) Hypochrom) [facility] CenterEpspgoqLUQPDEVQKS7598-16-87 19:24:00 Test Item Value Reference Range Interpretation Comments Lymphocytes # (test code = Lymphocytes 2.8 1.0-5.5 #) [facility] CenterZldhirpGRHKIDIDIX8089-95-52 19:24:00 Test Item Value Reference Range Interpretation Comments Segs-Bands # (test code = Segs-Bands #) 8.1 1.5-8.1 [facility] CenterKopyixnNJPLNKQNAV2185-57-73 19:24:00 Test Item Value Reference Range Interpretation Comments Monocytes # (test code 0.2 See_Comment [Aut omated message] The = Monocytes #) system which generated this result tra nsmitted reference range : <=0.8. The reference r ozzy was not used to int erpret this result as normal/abnormal . [facility] CenterYjfhmwxDTLLDXNIGV7580-99-38 19:24:00 Test Item Value Reference Range Interpretation Comments Lymphocytes (test code = Lymphocytes) 24.5 20.0-40.0 [facility] CenterRkkwafwPEEUHGMTOS8063-62-25 19:24:00 Test Item Value Reference Range Interpretation Comments Segs (test code = Segs) 71.8 45.0-75.0 [facility] CenterLcfnzblMDVLZCTLNN3734-90-84 19:24:00 Test Item Value Reference Range Interpretation Comments Basophils (test code = 0.6 See_Comment [Aut omated message] The Basophils) system which ge nerated this result tra nsmitted reference range : <=1.0. The reference r ozzy was not used to int erpret this result as normal/abnormal . [facility] CenterBgsgeyqGSUUKGVKJG3388-92-34 19:24:00 Test Item Value Reference Range Interpretation Comments Monocytes (test code = Monocytes) 1.5 2.0-12.0 [facility] CenterTabxgmyIYCGGZEDWU6261-64-80 19:24:00 Test Item Value Reference Range Interpretation Comments Eosinophils (test code = 1.6 See_Comment [A utomated message] The Eosinophils) system which ge nerated this result tra nsmitted reference range : <=4.0. The reference r ozzy was not used to int erpret this result as normal/abnormal . [facility]HainaxbPSSZHRSTWC8337-24-75 19:24:00 Test Item Value Reference Range Interpretation Comments Plt Morph (test code = Normal (08/24/14 1:24 Plt Morph) PM) [facility] [id number] 19:24:00 Test Item Value Reference Range Interpretation Comments UA Sq Epi (test code = UA Sq Occasional /LPF Epi) [facility] [id number] 19:24:00 Test Item Value Reference Range Interpretation Comments UA Bacteria (test code = UA Occasional /HPF Bacteria) [facility] [id number] 19:24:00 Test Item Value Reference Range Interpretation Comments UA Mucus (test code = None Seen (08/24/14 UA Mucus) 1:24 PM) [facility] [id number] 19:24:00 Test Item Value Reference Range Interpretation Comments UA WBC (test code = UA WBC) 0-2 /HPF [facility] [id number] 19:24:00 Test Item Value Reference Range Interpretation Comments UA RBC (test code = 0-2 /HPF See_Comment [Automa gaye message] The UA RBC) system which ge nerated this result tra nsmitted reference range : <=2. The reference range was not used to interpr et this result as satish l/abnormal. [facility] [id number] 19:24:00 Test Item Value Reference Range Interpretation Comments UA Leuk Est (test Moderate *ABN*(08/24/14 code = UA Leuk Est) 1:24 PM) [facility] [id number] 19:24:00 Test Item Value Reference Range Interpretation Comments UA Nitrite (test code Negative (08/24/14 1:24 = UA Nitrite) PM) [facility] AND [id number] 19:24:00 Test Item Value Reference Range Interpretation Comments UA Urobilinogen (test code = UA 0.2 0.1-1.0 Urobilinogen) [facility] AND [id number] 19:24:00 Test Item Value Reference Range Interpretation Comments UA Ketones (test code Negative *NA*(08/24/14 = UA Ketones) 1:24 PM) [facility] AND [id number] 19:24:00 Test Item Value Reference Range Interpretation Comments UA Blood (test code = Negative (08/24/14 1:24 UA Blood) PM) [facility] AND [id number] 19:24:00 Test Item Value Reference Range Interpretation Comments UA Bili (test code = Negative *NA*(08/24/14 UA Bili) 1:24 PM) [facility] AND [id number] 19:24:00 Test Item Value Reference Range Interpretation Comments UA Color (test code = Yellow *NA*(08/24/14 UA Color) 1:24 PM) [facility] AND [id number] 19:24:00 Test Item Value Reference Range Interpretation Comments UA Glucose (test code Negative (08/24/14 1:24 = UA Glucose) PM) [facility] AND [id number] 19:24:00 Test Item Value Reference Range Interpretation Comments UA Protein (test code Negative (08/24/14 1:24 = UA Protein) PM) [facility] AND [id number] 19:24:00 Test Item Value Reference Range Interpretation Comments UA pH (test code = UA pH) 6.0 1 5.0-8.0 [facility] AND [id number] 19:24:00 Test Item Value Reference Range Interpretation Comments UA Spec Grav (test code *NA*(08/24/14 1:24 PM) = UA Spec Grav) [facility] AND [id number] 19:24:00 Test Item Value Reference Range Interpretation Comments UA Turbidity (test code = Clear (08/24/14 1:24 UA Turbidity) PM) [facility]
[2021-12-23] MEDS ORDERED: NA CHLORIDE 0.9% 100 ML IV ONE (14:05)
[2021-12-23] MEDS ORDERED: NA CHLORIDE 0.9% 1,000 ML ONE (14:05)
[2021-12-23] MEDS ORDERED: LEVETIRACETAM 500 MG/5 ML VIAL IV ONE (14:05)
[2021-12-23 14:15] LABS: Urine Blood 2+ (Negative); Urine Glucose Negative (Negative); Urine Protein Negative (Negative); Urine Specific Gravity 1.015 (1.005-1.030)
[2021-12-23] MEDS ORDERED: LORazepam 2 MG/ML VIAL ONE ×2 (14:16→19:17)
[2021-12-23 14:29] LABS: Absolute Lymphocytes (CBC) 2.8 K/uL (0.7-4.9); Hematocrit 40.2 % (36.0-45.0); Lymphocytes % 31.7 % (15.3-44.8); MPV 7.7 fL (7.6-11.3); RBC Red Blood Cell Count 4.56 M/uL (3.86-4.86)
[2021-12-23 14:33] LABS: Urine Specific Gravity/Preg 1.015 (1.005-1.030)
[2021-12-23 14:43] LABS: Barbiturates NEGATIVE (NEGATIVE); Benzodiazepines POSITIVE (NEGATIVE); Cocaine NEGATIVE (NEGATIVE); METHAMPHETAM NEGATIVE (NEGATIVE); Methadone NEGATIVE (NEGATIVE); Opiates NEGATIVE (NEGATIVE); Phencyclidine NEGATIVE (NEGATIVE); THC Cannibis NEGATIVE (NEGATIVE)
[2021-12-23 14:50] LABS: ALT/SGPT 25 U/L (12-78); Albumin 3.4 g/dL (3.4-5.0); Alkaline Phosphatase 69 U/L (45-117); BUN Blood Urea Nitrogen 9 mg/dL (7-18); Bicarbonate 27 mmol/L (21-32); Bilirubin Direct 0.2 mg/dL (0-0.2); Bilirubin Total 0.6 mg/dL (0.2-1.0); Glomerular Filtration Rate 84 ml/min (=/>90); Glucose Level 91 mg/dL (74-106); Protein, Total 6.7 g/dL (6.4-8.2); Sodium Level 140 mmol/L (136-145)
[2021-12-23 14:52] LABS: AST/SGOT 17 U/L (15-37); Potassium 3.6 mmol/L (3.5-5.1)
--- NOTE | 2021-12-23 15:35 | RAD REPORT ---
EXAM DESCRIPTION: CT - Head Brain Wo Cont - 12/23/2021 3:29 pm CLINICAL HISTORY: Seizure disorder, clinical change Headache, drowsiness COMPARISON: <Comparisons> TECHNIQUE: All CT scans are performed using dose optimization technique as appropriate and may inclu de automated exposure control or mA/KV adjustment according to patient size. FINDINGS: No intracranial hemorrhage, hydrocephalus or extra-axial fluid collection.No areas of brai n edema or evidence of midline shift. The paranasal sinuses and mastoids are clear. The calvarium is intact. IMPRESSION: No acute intracranial abnormality.
[2021-12-23 15:42] LABS: Protime INR 1.02
[2021-12-23] MEDS ORDERED: CEFTRIAXONE 1000 MG/VIAL ONE (16:12)
[2021-12-23] MEDS ORDERED: NA CHLORIDE 0.9% 50 ML ONE (16:12)
[2021-12-23 16:22] LABS: Urine Bacteria NONE SEEN /HPF (<20)
--- NOTE | 2021-12-23 18:56 | EDPHYS ---
Physician Documentation [facility] Name: Shanna Nur Age: 46 yrs Sex: Female : 1975 Arrival Date: 12/23/2021 Time: 13:44 Bed 14 Private MD: ED Physician Tony Tran HPI: 12/23 14:00 This 46 yrs old Female presents to ER via EMS with complaints of Seizure. cp 14:00 The patient presents with decreased responsiveness. Onset: The symptoms/episode cp began/occurred today. Possible causes: seizure, the patient has a known seizure history. Associated signs and symptoms: The patient has no apparent associated signs or symptoms. Current symptoms: In the emergency department the patient's symptoms are unchanged from the initial presentation, despite EMS interventions. Patient's baseline: Neuro: alert and fully oriented, Motor: no deficits, Ambulation: walks without assistance, Speech: normal. EMS reports co-workers reported patient to have had multiple seizures today while at work. Patient was then found in car unresponsive by co-worker. Historical: - Allergies: 13:45 Iodine (Anaphylaxis); aa5 13:45 Phenergan; aa5 13:45 seafood; aa5 13:45 Latex, Natural Rubber; aa5 13:45 tramadol; aa5 13:45 Ultram; aa5 - PMHx: 13:45 Hypertensive disorder; Seizure; TBI; aa5 ROS: 14:05 Constitutional: Negative for fever. cp 14:05 Cardiovascular: Negative for chest pain. 14:05 Respiratory: Negative for cough, wheezing. 14:05 Abdomen/GI: Negative for abdominal pain, vomiting, diarrhea, constipation. 14:05 Neuro: Positive for altered mental status. 14:05 All other systems are negative. Exam: 14:10 Constitutional: The patient appears in no acute distress, non-diaphoretic, non-toxic, cp well developed, well nourished. 14:10 Head/Face: Normocephalic, atraumatic. cp 14:10 Eyes: Periorbital structures: appear normal, Pupils: equal, round, and reactive to light and accomodation, Conjunctiva: normal, no exudate, no injection, Sclera: no appreciated abnormality, Lids and lashes: appear normal, bilaterally. 14:10 ENT: External ear(s): are unremarkable, Ear canal(s): are normal, clear, TM's: dullness, bilaterally, Nose: is normal, Mouth: Lips: moist, Oral mucosa: pink and intact, moist, Posterior pharynx: Airway: no evidence of obstruction, patent. 14:10 Neck: C-spine: vertebral tenderness, is not appreciated, crepitus, is not appreciated. 14:10 Chest/axilla: Inspection: normal, Palpation: is normal, no crepitus, no tenderness. 14:10 Cardiovascular: Rate: normal, Rhythm: regular. 14:10 Respiratory: the patient does not display signs of respiratory distress, Respirations: normal, no use of accessory muscles, no retractions, labored breathing, is not present, Breath sounds: are clear throughout, no decreased breath sounds, no stridor, no wheezing. 14:10 Abdomen/GI: Inspection: abdomen appears normal, Bowel sounds: active, all quadrants, Palpation: abdomen is soft and non-tender, in all quadrants. 14:10 Musculoskeletal/extremity: Exam is negative for decreased range of motion, deformity, injury. 14:10 Neuro: Orientation: to person, Mentation: somnolent, responsive to pain. 14:27 ECG was reviewed by the Attending Physician. cp Vital Signs: 13:44 BP 124 / 70; Pulse 88; Resp 18 S; Temp 98.2(TE); Pulse Ox 98% on R/A; aa5 14:25 BP 114 / 65; Pulse 86; Resp 16 S; Pulse Ox 100% on 2 lpm NC; aa5 14:48 BP 92 / 50; Pulse 84; Resp 15; Pulse Ox 100% on R/A; mh5 15:50 BP 101 / 54; Pulse 68; Resp 16; Pulse Ox 100% on 2 lpm NC; jb4 17:15 BP 108 / 69; Pulse 81; Resp 16; Pulse Ox 100% on R/A; jb4 18:15 BP 99 / 63; Pulse 85; Resp 16; Pulse Ox 100% on R/A; jb4 19:30 BP 112 / 66; Pulse 84; Resp 16; Pulse Ox 94% on R/A; jb4 20:45 BP 107 / 67; Pulse 82; Resp 14; Pulse Ox 95% on R/A; jb4 21:30 BP 101 / 70; Pulse 73; Resp 16; Pulse Ox 98% on R/A; jb4 Remy Coma Score: 13:55 Eye Response: spontaneous(4). Verbal Response: oriented(5). Motor Response: obeys aa5 commands(6). Total: 15. MDM: 14:00 Differential Diagnosis: CVA, electrolyte abnormality, alcohol intoxication, cp intracranial bleed, meningitis, seizure, sepsis, volume depletion. 14:03 Patient medically screened. cp 14:18 ED course: Patient observed to have seizure, 2 mg Ativan given by nurse after verbal cp order. 18:38 Physician consultation: Sam Fuentes MD was called at 18:38, was contacted at 18:39, regarding consult, patient's condition. 18:45 Data reviewed: vital signs, nurses notes, lab test result(s), EKG, radiologic studies, cp CT scan, plain films. 18:45 Test interpretation: by ED physician or midlevel provider: ECG, plain radiologic cp studies. Response to treatment: the patient's symptoms have mildly improved after treatment, and as a result, I will admit patient. 18:55 Physician consultation: Bin Saucedo was called at 18:55, was contacted at 18:55, regarding admission, to the telemetry unit. patient's condition. 12/23 13:57 Order name: Acetaminophen; Complete Time: 15:50 cp 12/23 13:57 Order name: Basic Metabolic Panel; Complete Time: 15:50 cp 12/23 16:05 Interpretation: Normal except: GFR 84; CA 8.2. cp 12/23 13:57 Order name: CBC with Diff; Complete Time: 15:50 cp 12/23 13:57 Order name: ETOH Level; Complete Time: 15:50 cp 12/23 13:57 Order name: Hepatic Function; Complete Time: 15:50 cp 12/23 13:57 Order name: PT-INR; Complete Time: 15:50 cp 12/23 13:57 Order name: Ptt, Activated; Complete Time: 15:50 cp 12/23 13:57 Order name: Salicylate; Complete Time: 15:50 cp 12/23 13:57 Order name: Urine Drug Screen; Complete Time: 15:50 cp 12/23 14:15 Order name: Urine Dipstick-Ancillary; Complete Time: 15:50 EDMS 12/23 14:19 Order name: Urine --Ancillary (enter results); Complete Time: 15:50 eb 12/23 15:13 Order name: CT Head Brain wo Cont; Complete Time: 15:50 cp 12/23 15:53 Order name: Urine Microscopic Only; Complete Time: 16:23 12/23 16:23 Interpretation: Normal except: URBC 10-20. 12/23 18:58 Order name: SARS-COV-2 RT PCR (Document "Date of Onset" if Symptomatic); Complete Time: eb 21:01 12/23 21:01 Interpretation: Reviewed. 12/23 13:57 Order name: EKG; Complete Time: 13:58 cp 12/23 13:57 Order name: EKG - Nurse/Tech; Complete Time: 14:21 cp 12/23 13:57 Order name: IV Saline Lock; Complete Time: 14:16 12/23 13:57 Order name: Labs collected and sent; Complete Time: 14:16 cp 12/23 13:57 Order name: Urine Dipstick-Ancillary (obtain specimen); Complete Time: 14:16 12/23 13:57 Order name: Urine Test (obtain specimen); Complete Time: 14:16 cp 12/23 13:57 Order name: Cath; Complete Time: 14:15 cp EC:27 Rate is 88 beats/min. Rhythm is regular. NM interval is normal. QRS interval is normal. cp QT interval is normal. T waves are Inverted in lead aVR. Interpreted by me. Reviewed by me. Administered Medications: 14:05 Drug: NS 0.9% 1000 ml Route: IV; Rate: 500 ml/hr; Site: left antecubital; aa5 14:05 Drug: Keppra (levETIRAcetam) 1000 mg Route: IV; Rate: calculated rate; Site: left aa5 antecubital; 14:20 Follow up: Response: No adverse reaction; IV Status: Completed infusion aa5 14:15 Drug: Ativan (LORazepam) 2 mg Route: IVP; Site: left antecubital; aa5 14:20 Follow up: Response: No adverse reaction aa5 16:14 Drug: Rocephin - (cefTRIAXone) 1 grams Route: IVPB; Infused Over: 30 mins; Site: left jb4 antecubital; 19:14 Drug: Ativan (LORazepam) 2 mg Route: IVP; Site: left antecubital; jb4 Disposition Summary: 12/23/21 18:54 Hospitalization Ordered Hospitalization Status: Observation cp Location: Telemetry/MedSurg (observation) cp Condition: Stable cp Problem: an acute exacerbation cp Symptoms: have improved cp Bed/Room Type: Standard cp Provider: Brady Lopez(12/23/21 18:55) la1 Room Assignment: [facility](12/23/21 20:34) cg Diagnosis - Other seizures cp - UTI/ Urinary tract infection, site not specified cp Forms: - Medication Reconciliation Form cp - SBAR form cp Signatures: Dispatcher [employer] EDMS Sabine [address] RN RN aa5 Bin Saucedo, SLITTING MACHINE FEEDER-C SLITTING MACHINE FEEDER-Cla1 Tee Bill PA PA cp Leah Garcia, AUDI HUNTLEY cg Farrukh Rojas RN RN jb4 Corrections: (The following items were deleted from the chart) 14:16 13:57 Suicide Screening ([place]) ordered. cp aa5 18:55 18:54 Bin Saucedo cp la1 20:30 18:54 cp cg 20:34 20:30 212 cg cg
--- NOTE | 2021-12-23 18:56 | ER ---
Nurse's Notes [facility] Name: Shanna Nur Age: 46 yrs Sex: Female : 1975 Arrival Date: 12/23/2021 Time: 13:44 Bed 14 Private MD: Diagnosis: Other seizures;UTI/ Urinary tract infection, site not specified Presentation: 12/23 13:44 Chief complaint: EMS states: called out for seizure at pt's work, EMS reports 2 aa5 seizures prior to their arrival and report 1 witnessed seizure activity that lasted 45 seconds by them. Pt was given 5 mg Versed IVP. Pt currently post ictal. 13:44 Coronavirus screen: At this time, the client does not indicate any symptoms associated aa5 with coronavirus-19. Ebola Screen: No symptoms or risks identified at this time. Initial Sepsis Screen: Does the patient meet any 2 criteria? No. Patient's initial sepsis screen is negative. Does the patient have a suspected source of infection? No. Patient's initial sepsis screen is negative. Risk Assessment: Do you want to hurt yourself or someone else? Unable to obtain. Onset of symptoms was December 23, 2021. 13:44 Acuity: JESUS 3 aa5 13:44 Method Of Arrival: EMS: [facility] aa5 Historical: - Allergies: 13:45 Iodine (Anaphylaxis); aa5 13:45 Phenergan; aa5 13:45 seafood; aa5 13:45 Latex, Natural Rubber; aa5 13:45 tramadol; aa5 13:45 Ultram; aa5 - PMHx: 13:45 Hypertensive disorder; Seizure; TBI; aa5 Screenin:00 Abuse screen: Denies threats or abuse. Nutritional screening: No deficits noted. aa5 Tuberculosis screening: No symptoms or risk factors identified. Fall Risk Secondary diagnosis (15 points) seizures, IV access (20 points). Total Ortega Fall Scale indicates Low Risk Score (25-44 pts). Fall prevention measures have been instituted. Side Rails Up X 2 Placed close to Nursing Station. Assessment: 13:44 General: Appears comfortable, Behavior is post-ictal. Pain: Unable to use pain scale. aa5 Does not appear to understand pain scale. Neuro: Level of Consciousness is post ictal, Oriented to none. Cardiovascular: Heart tones S1 S2 present Rhythm is regular. Respiratory: Airway is patent Respiratory effort is even, unlabored, Respiratory pattern is regular, symmetrical. GI: Abdomen is round non-distended, Bowel sounds present X 4 quads. Abd is soft X 4 quads. : No signs and/or symptoms were reported regarding the genitourinary system. EENT: No signs and/or symptoms were reported regarding the EENT system. Derm: Skin is pink, warm \\T\\ dry. Musculoskeletal: Range of motion: intact in all extremities. 13:55 Reassessment: Patient is alert, oriented x 3, equal unlabored respirations, skin aa5 warm/dry/pink. Pt only c/o "feeling groggy". Reassessment: Patient denies pain at this time. 14:05 Reassessment: Patient is alert, oriented x 3, equal unlabored respirations, skin aa5 warm/dry/pink. Patient denies pain at this time. 14:15 Reassessment: Seizure activity noted lasting approximately 20 seconds, no post-ictal aa5 period was noted, pt awake and talking after seizure activity was noted. . 15:10 Reassessment: Pt is resting in bed with eyes closed, respirations are even and jb4 unlabored with no s/s of pain or distress noted. 16:00 Reassessment: Patient appears in no apparent distress at this time. No changes from jb4 previously documented assessment. Patient and/or family updated on plan of care and expected duration. Pain level reassessed. 17:00 Reassessment: Patient appears in no apparent distress at this time. Patient is alert, jb4 oriented x 3, equal unlabored respirations, skin warm/dry/pink. Patient is alert/active/playful, equal unlabored respirations, skin warm/dry/pink. 18:42 Reassessment: Patient appears in no apparent distress at this time. Patient and/or jb4 family updated on plan of care and expected duration. Pain level reassessed. Patient is alert, oriented x 3, equal unlabored respirations, skin warm/dry/pink. Pt assisted to bedside commode. Unsteady gait noted. PT requires the assistance of surrounding objects and people to ambulate. Provider made aware. 19:30 Reassessment: Pt is resting in bed with eyes closed, respirations are even and jb4 unlabored. No s/s of pain or distress noted. 20:54 Reassessment: Patient appears in no apparent distress at this time. No changes from jb4 previously documented assessment. Patient and/or family updated on plan of care and expected duration. Pain level reassessed. 21:50 Reassessment: Patient appears in no apparent distress at this time. No changes from jb4 previously documented assessment. Vital Signs: 13:44 BP 124 / 70; Pulse 88; Resp 18 S; Temp 98.2(TE); Pulse Ox 98% on R/A; aa5 14:25 BP 114 / 65; Pulse 86; Resp 16 S; Pulse Ox 100% on 2 lpm NC; aa5 14:48 BP 92 / 50; Pulse 84; Resp 15; Pulse Ox 100% on R/A; mh5 15:50 BP 101 / 54; Pulse 68; Resp 16; Pulse Ox 100% on 2 lpm NC; jb4 17:15 BP 108 / 69; Pulse 81; Resp 16; Pulse Ox 100% on R/A; jb4 18:15 BP 99 / 63; Pulse 85; Resp 16; Pulse Ox 100% on R/A; jb4 19:30 BP 112 / 66; Pulse 84; Resp 16; Pulse Ox 94% on R/A; jb4 20:45 BP 107 / 67; Pulse 82; Resp 14; Pulse Ox 95% on R/A; jb4 21:30 BP 101 / 70; Pulse 73; Resp 16; Pulse Ox 98% on R/A; jb4 Milton Coma Score: 13:55 Eye Response: spontaneous(4). Verbal Response: oriented(5). Motor Response: obeys aa5 commands(6). Total: 15. ED Course: 13:44 Patient arrived in ED. eb 13:44 Arm band placed on Patient placed in an exam room, on a stretcher. aa5 13:44 Seizure precautions initiated. aa5 13:54 Tee Bill PA is PHCP. cp 13:54 Tony Tran MD is Attending Physician. cp 14:[address], AUDI is Primary Nurse. aa5 14:23 Triage completed. aa5 14:27 Urine --Ancillary (enter results) Sent. mh5 14:27 Urine Drug Screen Sent. mh5 14:27 Salicylate Sent. mh5 14:27 Ptt, Activated Sent. mh5 14:27 PT-INR Sent. mh5 14:27 Hepatic Function Sent. 5 14:27 ETOH Level Sent. 5 14:27 CBC with Diff [address] [facility] 14:27 Basic Metabolic Panel Sent. [facility] 14:28 Patient has correct armband on for positive identification. Placed in gown. Bed in low mh5 position. Call light in reach. Side rails up X2. Adult w/ patient. Warm blanket given. shelter monitor on. Pulse ox on. NIBP on. 14:28 Initial lab(s) drawn, by nc, sent to lab. Urine collected: straight cath specimen, [facility] cloudy, EKG done, by ED staff, reviewed by Tony Tran MD. Maintain EMS IV. Dressing intact. Good blood return noted. Site clean \\T\\ dry. Gauge \\T\\ site: 20 gauge. 14:30 Straight cath inserted, using sterile technique, [address] [facility] 14:55 Report given to Farrukh Raman RN. 5 14:55 No provider procedures requiring assistance completed. 5 14:56 Primary Nurse role handed off by Sabine St RN 4 14:56 Farrukh Rojas, AUDI is Primary Nurse. jb4 15:31 CT Head Brain wo Cont In Process Unspecified. EDMS 18:52 Bin Saucedo is Hospitalizing Provider. cp 18:55 Brady Lopez MD is Hospitalizing Provider. la1 21:06 Patient admitted, IV remains in place. jb4 Administered Medications: 14:05 Drug: NS 0.9% 1000 ml Route: IV; Rate: 500 ml/hr; Site: left antecubital; aa5 14:05 Drug: Keppra (levETIRAcetam) 1000 mg Route: IV; Rate: calculated rate; Site: left aa5 antecubital; 14:20 Follow up: Response: No adverse reaction; IV Status: Completed infusion aa5 14:15 Drug: Ativan (LORazepam) 2 mg Route: IVP; Site: left antecubital; aa5 14:20 Follow up: Response: No adverse reaction 5 16:14 Drug: Rocephin - (cefTRIAXone) 1 grams Route: IVPB; Infused Over: 30 mins; Site: left jb4 antecubital; 19:14 Drug: Ativan (LORazepam) 2 mg Route: IVP; Site: left antecubital; jb4 Outcome: 18:54 Decision to Hospitalize by Provider. cp 21:06 Admitted to Med/surg accompanied by tech, via stretcher, room 232, with chart. jb4 21:06 Condition: stable 21:06 Discharge instructions given to patient, family, Instructed on the need for admit, Demonstrated understanding of instructions. 22:12 Patient left the ED. jb4 Signatures: Dispatcher [employer] EDMS [address]ine St, RN RN aa5 Bin Saucedo, AIR LIFT OPERATOR-C AIR LIFT OPERATOR-Cla1 Tee Bill, RICHARD PA Farrukh Bell RN RN renate4 Rhiannon Ramirez [facility] Margo Back
--- NOTE | 2021-12-23 19:39 | P.HP ---
Certification for Inpatient Patient admitted to: Observation With expected LOS: <2 Midnights Patient will require the following post-hospital care: None Practitioner: I am a practitioner with admitting privileges, knowledge of patient current condition, hospital course, and medical plan of care. Services: Services provided to patient in accordance with Admission requirements found in Title 42 Section 412.3 of the Code of Federal Regulations Patient History Date of Service: 12/23/21 Reason for admission: Seizures History of Present Illness: 46-year-old female with history of seizure disorder presents emerged department after having multiple seizures at work. Patient had 2 unwitnessed seizures at work and had 2 additional seizures that were witnessed in the emergency department, patient was given benzos by both EMS and hospital staff, at this time she is drowsy but alert/oriented. Given the patient has had multiple seizures she was loaded with Keppra and neurology was consulted who recommend observation throughout the evening and will consult. - Past Medical/Surgical History -: seizures -: Appy -: Tubal -: L knee Psychosocial/ Personal History: Lives at home with family - Family History Mother -: Cancer - Social History Smoking Status: Never smoker Alcohol use: No CD- Drugs: No Caffeine use: Yes Place of Residence: Home Review of Systems 10-point ROS is otherwise unremarkable Neurological: Seizures, As per HPI Physical Examination - Physical Exam General: Alert, In no apparent distress, Oriented x3 HEENT: Atraumatic, PERRLA, Mucous membr. moist/pink, EOMI, Sclerae nonicteric Neck: Supple, 2+ carotid pulse no bruit, No LAD, Without JVD or thyroid abnormality Respiratory: Clear to auscultation bilaterally, Normal air movement Cardiovascular: Regular rate/rhythm, Normal S1 S2 Gastrointestinal: Normal bowel sounds, No tenderness Musculoskeletal: No tenderness Integumentary: No rashes Neurological: Normal gait, Normal speech, Normal strength at 5/5 x4 extr, Normal tone, Normal affect Lymphatics: No axilla or inguinal lymphadenopathy - Studies Laboratory Data (last 24 hrs) 12/23/21 14:07: PT 12.1, INR 1.02, APTT 27.0 12/23/21 14:07: WBC 8.7, Hgb 13.9, Hct 40.2, Plt Count 373 12/23/21 14:07: Sodium 140, Potassium 3.6, BUN 9, Creatinine 0.85, Glucose 91, Total Bilirubin 0.6, AST 17, ALT 25, Alkaline Phosphatase 69 Assessment and Plan - Plan Assessment: Seizureshistory of Plan: Seizureshistory of: Continue keppra, neuro consult, sz precautions, PRN ativan for seizures. Continue vimpat DVT PPX: Lovenox Code status: Full Discharge Plan: Home Plan to discharge in: 24 Hours - Advance Directives Does patient have a Living Will: No Does patient have a Durable POA for Healthcare: No - Code Status/Comfort Care Code Status Assessed: Yes (Full code) Critical Care: No Time Spent Managing Pts Care (In Minutes): 55
[2021-12-23] MEDS ORDERED: ACETAMINOPHEN 500 MG TAB PO PRN (22:33)
[2021-12-23 22:43] VITALS: BMI 28.7
[2021-12-23] MEDS: levETIRAcetam 500 MG TAB PO SCH (23:01)
[2021-12-24 05:55] LABS: Absolute Lymphocytes (CBC) 2.7 K/uL (0.7-4.9); Hematocrit 40.3 % (36.0-45.0); Lymphocytes % 33.8 % (15.3-44.8); MPV 7.7 fL (7.6-11.3)
[2021-12-24 06:09] LABS: Bilirubin Total 0.9 mg/dL (0.2-1.0); Potassium 3.7 mmol/L (3.5-5.1); Protein, Total 6.1 g/dL (6.4-8.2)
[2021-12-24] MEDS: levETIRAcetam 500 MG TAB PO SCH ×2 (09:00→20:47)
[2021-12-24] MEDS: LORazepam 2 MG/ML VIAL IV PRN ×2 (09:52→19:00)
--- NOTE | 2021-12-24 10:59 | P.PN ---
Subjective Date of Service: 12/24/21 Chief Complaint: Seizures Subjective: No C/O voiced (still having myoclonic seizures.) Physical Examination - Vital Signs Temperature: 97.2 F Blood Pressure: 115/67 Pulse: 84 Respirations: 20 Pulse Ox (%): 97 - Physical Exam General: Alert, In no apparent distress, Oriented x3 HEENT: Atraumatic, Normocephalic Neck: Supple Respiratory: Normal air movement Cardiovascular: Regular rate/rhythm, Normal S1 S2 Gastrointestinal: Soft and benign Musculoskeletal: No swelling Neurological: Normal speech - Studies Laboratory Data (last 24 hrs) 12/23/21 14:07: PT 12.1, INR 1.02, APTT 27.0 12/23/21 14:07: WBC 8.7, Hgb 13.9, Hct 40.2, Plt Count 373 12/23/21 14:07: Sodium 140, Potassium 3.6, BUN 9, Creatinine 0.85, Glucose 91, Total Bilirubin 0.6, AST 17, ALT 25, Alkaline Phosphatase 69 Assessment And Plan - Plan Seizures: Patient continues to have myoclonic jerks. Presently relocated to [place]. Will establish care with neurologist Dr. Fuentes. Will continue Vimpat and Keppra doses. Prn Lorazepam on board for management. Will start Flexeril for suspected muscle spasm as the complaint of low back pain. Will continue on seizure precautions. EEG ordered. Prophylaxis: Lovenox for DVT.
[2021-12-24] MEDS: LACOSAMIDE 50 MG TABLET PO SCH ×2 (11:00→20:47)
[2021-12-24] MEDS: CYCLOBENZAPRINE 10 MG TAB PO PRN (11:05)
[2021-12-24 21:35] LABS: Urine Appearance Clear (Clear); Urine Bilirubin Negative (Negative); Urine Blood Trace-intact (Negative); Urine Color Yellow (Yellow); Urine Glucose Negative (Negative); Urine Protein Negative (Negative); Urine Specific Gravity 1.025 (1.005-1.030); Urine Urobilinogen 0.2 mg/dL (0.2-1.0)
[2021-12-24 21:46] LABS: Urine Microscopic Reflex ORDER UMIC
[2021-12-24 21:59] LABS: Urine Bacteria <20 /HPF (<20); Urine RBC <5 /HPF (NONE SEEN)
[2021-12-25] MEDS: LORazepam 2 MG/ML VIAL IV PRN ×2 (08:03→18:13)
[2021-12-25] MEDS: LACOSAMIDE 50 MG TABLET PO SCH ×2 (08:04→21:05)
[2021-12-25] MEDS: levETIRAcetam 500 MG TAB PO SCH ×2 (08:04→21:06)
[2021-12-25] MEDS: CYCLOBENZAPRINE 10 MG TAB PO PRN ×2 (12:07→21:08)
--- NOTE | 2021-12-25 15:52 | P.PN ---
Subjective Date of Service: 12/25/21 Chief Complaint: Seizures Subjective: No new changes, Improving Physical Examination - Vital Signs Temperature: 97.2 F Blood Pressure: 102/57 Pulse: 91 Respirations: 19 Pulse Ox (%): 95 - Physical Exam General: Alert, Oriented x3 HEENT: Atraumatic, Normocephalic Neck: Supple Respiratory: Normal air movement Cardiovascular: Regular rate/rhythm, Normal S1 S2 Gastrointestinal: Soft and benign Musculoskeletal: No swelling Neurological: Normal speech, Normal strength at 5/5 x4 extr Assessment And Plan - Plan Seizures: Patient continues to have myoclonic jerks. Will establish care with neurologist Dr. Fuentes. Will continue Vimpat and Keppra doses. Prn Lorazepam on board for management. Will continued Flexeril for suspected muscle spasm as the complaint of low back pain. Will continue on seizure precautions. EEG ordered. Prophylaxis: Lovenox for DVT.
[2021-12-25 21:42] VITALS: O2SAT 95
[2021-12-26] MEDS: LORazepam 2 MG/ML VIAL IV PRN ×2 (08:58→17:26)
[2021-12-26] MEDS: levETIRAcetam 500 MG TAB PO SCH (09:11)
[2021-12-26] MEDS: LACOSAMIDE 50 MG TABLET PO SCH (09:12)
--- NOTE | 2021-12-26 10:09 | EKG ---
Test Date: 2021-12-23 Test Time: 14:21:42 [employer]: KIM MEASUREMENT RESULTS: Intervals: Rate: 88 UT: 152 QRSD: 78 QT: 384 QTc: 464 [place]: P: 58 UT: 152 QRS: 62 T: 50 INTERPRETIVE STATEMENTS: Normal sinus rhythm Normal ECG Compared to ECG 12/06/2021 14:47:26 No significant changes Electronically Signed On 12-26-21 10:03:06 CDT by Cliff Hatch
[2021-12-26] MEDS: ONDANSETRON 4 MG/2 ML VIAL IV PRN ×2 (13:25→19:30)
[2021-12-26 17:37] VITALS: BP 103/50; TEMP 97.6
--- NOTE | 2021-12-27 00:36 | CON ---
Reason For Consultation: Consultation called because of seizures. History Of Present Illness: Ms. Nur is a 46-year-old patient with reported history of seizures, longstanding and seen by a neurologist in [place]. She says she is on Vimpat and Keppra and has been compliant with those medications. She reports a lot of stress, work related and non work related an d has had more frequent seizures back in November and was seen in the hospital with seizures and now at least 2, perhaps up to 4 seizures until she received benzodiazepines and another load of Keppra. Sin ce the hospitalization, actually earlier this morning, no additional seizure activity. She did have an EEG that shows no significant abnormalities. No epileptiform discharges. Her head CT scan was un remarkable. Her blood work is completely normal, that is a complete blood count with differential. Her coagulation panel is normal. Basic metabolic panel essentially unremarkable. Liver function sarahi dies were normal. Urinalysis showed 20-50 epithelial cells, trace esterase, trace blood, and U tox w as positive for benzodiazepines and COVID testing was negative. Past Medical History: As noted. Past Surgical History: Appendectomy, tubal ligation, left knee surgery. Family History: Mother with cancer. Social History: Lives at home with family. Denies alcohol tobacco, or IV drug use. Medications: At home are Keppra 750 mg twice daily, Vimpat 200 mg twice daily, and Flexeril 10 mg 3 times daily. Review of Systems: She denies any recent fevers or chills. No nausea, vomiting, myalgias, arthralgias, headache, weight change, rash, psychiatric complaints, gastrointestinal complaints or genitourinary issues. Physical Examination: Vital Signs: Blood pressure 110/63, pulse of 96, respiratory rate 16, temperature 98.4, oxygen satur ation 97% on room air. General: Ms. Nur is resting in bed. She is in no acute distress. HEENT: She is normocephalic, atraumatic. Sclerae anicteric. Oropharynx is pink and moist. Neck: Supple. Chest: Clear. Heart: Regular. Extremities: No clubbing, cyanosis, or edema. Neurologic: She is alert and oriented to situation, place, and person. On cranial nerve exam, no fo keerthi motor, coordination, sensory, or gait abnormalities. Assessment: Ms. Nur is a 46-year-old patient with reportedly multiple seizures over many years, followed by a neurologist in [place]. She is on 2 antiepileptic medications. Seizures are described as myoclonic. She may drop things, have jerking, but also could have tongue biting with generalized convulsions. Plan: 1.We will follow the patient after discharge if she wants to stay in the area and be seen or she may follow up with her neurologist in [place]. 2.Consider Fycompa 4 mg daily along with the Keppra and Vimpat at the current dosages. FRED/MARCELO Voice ID: [id number] Report ID: [id number]
--- NOTE | 2021-12-27 07:54 | EEG ---
CHART: [id number] TEST ID#: [id number] DATE OF STUDY: 12-26-2021 THE EEG WAS RECORDED PORTABLE IN THE PATIENT'S ROOM ON A 17 CHANNEL MACHINE. ELECTRODES WERE APPLIED IN THE USUAL MANNER USING THE INTERNATIONAL 10-20 SYSTEM. THE WAKING BACKGROUND RHYTHM IN THIS RECORD CONSISTS OF WELL DEVELOPED AND WELL ORGANIZED WAVES OF 9 HZ., MAXIMAL IN THE POSTERIOR HEAD REGIONS WHICH ATTENUATE NORMALLY WITH EYE OPENING. LOW-VOLTAGE 18-22 HZ ACTIVITY IS EXPRESSED IN THE FROTNAL REGIONS. THERE ARE NO FOCAL OR LATERALIZING FEATURES. NO EPILEPTIFORM ACTIVITY APPEARS. SLEEP OCCURRED NATURALLY. IN ADDITION NORMAL SLEEP PATTERNS ARE PRESENT. HYPERVENTILATION WAS NOT PERFORMED WELL AND PRODUCED. PHOTIC STIMULATION PRODUCED FAIR DRIVING BILATERALLY. IMPRESSION: NORMAL EEG FOR THE AGE OF THE PATIENT IN [place], DROWSINESS AND SLEEP.
--- NOTE | 2022-01-07 05:17 | P.DS ---
Discharge Date: 12/26/21 Disposition: ROUTINE DISCHARGE Discharge Condition: GOOD Reason for Admission: Seizures Brief History of Present Illness: 46-year-old female with history of seizure disorder presents emerged department after having multiple seizures at work. Patient had 2 unwitnessed seizures at work and had 2 additional seizures that were witnessed in the emergency department, patient was given benzos by both EMS and hospital staff, at this time she is drowsy but alert/oriented. Given the patient has had multiple seizures she was loaded with Keppra and neurology was consulted who recommend observation throughout the evening and will consult. Hospital Course: Patient was worked up and we had neurology consultation. It appeared as if patient was having pseudoseizures. Patient is clinically doing well. At this time, patient is stable for discharge home with outpatient follow-up. Vital Signs/Physical Exam: Temp Pulse Resp BP Pulse Ox 97.6 F 103 H 20 103/50 L 97 12/26/21 17:35 12/26/21 17:35 12/26/21 17:35 12/26/21 17:35 12/26/21 17:35 General: Alert, In no apparent distress, Oriented x3 Laboratory Data at Discharge: WBC 7.9 K/uL (4.3-10.9) 12/24/21 05:06 Hgb 13.8 g/dL (12.0-15.0) 12/24/21 05:06 Hct 40.3 % (36.0-45.0) 12/24/21 05:06 Plt Count 350 K/uL (152-406) 12/24/21 05:06 PT 12.1 SECONDS (9.2-12.8) 12/23/21 14:07 INR 1.02 12/23/21 14:07 APTT 27.0 SECONDS (21.7-34.4) 12/23/21 14:07 Sodium 139 mmol/L (136-145) 12/24/21 05:06 Potassium 3.7 mmol/L (3.5-5.1) 12/24/21 05:06 BUN 11 mg/dL (7-18) 12/24/21 05:06 Creatinine 0.66 mg/dL (0.55-1.3) 12/24/21 05:06 Glucose 95 mg/dL (74-106) 12/24/21 05:06 Total Bilirubin 0.9 mg/dL (0.2-1.0) 12/24/21 05:06 AST 13 U/L (15-37) L 12/24/21 05:06 ALT 21 U/L (12-78) 12/24/21 05:06 Alkaline Phosphatase 66 U/L (45-117) 12/24/21 05:06 Home Medications: Lacosamide [Vimpat] 200 mg PO BID 12/24/21 Levetiracetam [Keppra] 750 mg PO BID 12/24/21 Levetiracetam [Keppra] 750 mg PO BID #60 tablet 12/26/21 clonazePAM [Klonopin] 0.5 mg PO TID #60 tablet 12/26/21 New Medications: Levetiracetam [Keppra] 750 mg PO BID #60 tablet clonazePAM [Klonopin] 0.5 mg PO TID #60 tablet Physician Discharge Instructions: -DC IV and DC home -Follow-up with PCP in 1 to 2 weeks -Follow-up with neurology in 1 to 2 weeks -Please call Dr. Mejia at [phone] if any questions regarding hospital stay -Please call nursing station at [phone] if any nursing or medication questions -Return to the emergency room if symptoms worsen Diet: Regular Activity: Fall precautions Followup: Sam Fuentes MD [ASSOCIATE-ACTIVE - CAN ADMIT] - 1-2 Weeks (call for an apointment) Time spent managing pt's care (in minutes): 35
== END 2021-12-26 20:20 | disposition home or self-care (01) | DRG 101 ==
LOC: ER 13:39 → ERHOLD 20:14 → 2ND 21:17 → OBSVTOIN 12-24 19:08
PROVIDERS: ADMIT Internal Medicine Nephrology; ATTEND Hospitalist
DX: G40.409 Other generalized epilepsy and epileptic syndromes, not intractable, without status epilepticus (principal); I10 Essential (primary) hypertension; Z20.822 Contact with and (suspected) exposure to COVID-19
CPT/HCPCS: 36415; 51702; 70450; 80048; 80053; 80076; 80307; 80320; 80329; 81003; 81015; 81025; 85025; 85610; 85730; 87086; 87088; 93005; 95819; 96374; 96375; 99285; G0378; J1953; J2405; J7030; U0003

== ENCOUNTER 2022-01-11 14:13 | Emergency (ER) | payer OTHER ==
--- OUTSIDE RECORDS SUMMARY | 2022-01-11 14:22 | XMS REPORT | Continuity of Care Document ---
:1975 Author Organization [facility] t Address [address] [place] [address] Care Team Providers Name Role Phone Rashida Primary Care Physician ELISE Attending Clinician Unavailable James MCDUFFIE, TAvery Attending Clinician Joelle Boles DO Attending Clinician GABY RIZZO Attending Clinician Unavailable Florence HUNTLEY Attending Clinician Unavailable Alisson HUNTLEY Attending Clinician Unavailable ELISE Attending Clinician Unavailable YANIQUE COFFEY Attending Clinician Unavailable Santosh MCDUFFIE Attending Clinician JEANNIE CAMACHO Attending Clinician Unavailable Cortes Brumfield MD Attending Clinician Obie MCDUFFIE MAvery Attending Clinician MD Gina RAGLAND Attending Clinician Unavailable Aylin García MD Attending Clinician REID Attending Clinician Unavailable Nelsy Greenberg DO Attending Clinician Soha Hill MD Attending Clinician Coty Brannon MD Attending Clinician Britni Thakkar Attending Clinician MD BRITNI THAKKAR Attending Clinician Unavailable Dusty Torres MD Attending Clinician Latoya Oden MD Attending Clinician Shaikh FROY Attending Clinician MD KELI Attending Clinician Unavailable MD AYLIN GARCÍA Attending Clinician Unavailable Barrie MCDUFFIE Attending Clinician Shaw MCDUFFIE Attending Clinician MD SHAW Attending Clinician Unavailable KATEY PÉREZ Attending Clinician Unavailable DEANGELO DUONG Attending Clinician Unavailable DEANGELO DUONG Attending Clinician Unavailable GRISEL RODRIGUEZ Attending Clinician Unavailable RAULITO SCHWARZ Attending Clinician Unavailable VANDANA BENSON Attending Clinician Unavailable NICOLE JOY Attending Clinician Unavailable PRANAV Attending Clinician Unavailable ANDREZ DE LEON Attending Clinician Unavailable TRACEE LAMBERT Attending Clinician Unavailable OBIE Admitting Clinician Unavailable MD Gina RAGLAND Admitting Clinician Unavailable ZANE Admitting Clinician Unavailable MD COTY BRANNON Admitting Clinician Unavailable AKSHAT Admitting Clinician Unavailable MD LATOYA ODEN Admitting Clinician Unavailable MARCIA PATE Admitting Clinician Unavailable SHAW Admitting Clinician Unavailable MD SHAW Admitting Clinician Unavailable DEANGELO DUONG Admitting Clinician Unavailable Payers Payer Name Policy Type Policy Number Effective Date Expiration Date S maurice [facility] COMM[facility] PL[facility] [id number] 2020 STAR 00:00:00 CDC REVIEW [id number] 2020 00:00:00 Problems Condition Condition Condition Status Onset Resolution Last Treating Co mments Source Name Details Category Date Date Treatment Clinician Date Traumatic Traumatic Disease Active [facility] brain brain 4-26 st injury injury 00:00: Hospita 00 l Seizure-li Seizure-li Disease Active 2021-0 M ethodi ke ke 2-04 st activity activity 00:00: Hospit a 00 l Need for Need for Disease Active Metho di assistance assistance 05-08 st due to due to 00:00: Hospita unsteady unsteady 00 l gait gait Seizures Seizures Disease Active Metho di 05-08 st 00:00: Hospita 00 l Dizziness Dizziness Disease Active [facility] 05-06 st 00:00: Hospita 00 l Chest pain Chest pain Disease Active 2018-[address] 00:00: Hospita 00 l TIA TIA Disease Active 2017-08 Methodi (transient (transient 10-03 st ischemic ischemic 00:00: Hospit a attack) [...] VAGINAL Diagnosis Active 2016-08-10 Me moria BLEEDING 7 09:01:00 l VAGINAL 23:00: Antonio BLEEDING 00 Active 02/12/2016 [facility] D25.9 - Diagnosis Active 2014-082015-06-08 Me moria "LEIOMYOMA 0- 15:22:00 l OF UTERUS, D25.9 - 00:01: Her sarkar UNSPECIFI" "LEIOMYOMA 00 OF UTERUS, UNSPECIFI" Active 06/08/2015 [facility] [place] VAGINAL Diagnosis Active 2014-12-21 Me moria BLEEDING- - 13:01:00 l 6 WKS PG VAGINAL 00:00: Kristina nn BLEEDING- 00 6 WKS PG Active 09/03/2014 [facility] CONSTIPATI Diagnosis Active 2014-12-14 Memoria ON, NAUSEA 1-12 09:23:00 l 00:00: Antonio CONSTIPATI 00 ON, NAUSEA Active 08/24/2014 [facility] 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 History of History of Problem Resolve UT [...] breath) an s on on exertion exertion Anemia Problem Resolve 2016-02-16 Bhavesh amrio (disorder) d 00:25:42 l Anemia Antonio (disorder) Resolved Problem 02/16/2016 [facility] Migraine Problem Resolve 2016-02-16 Me moria (disorder) d 00:25:42 l Migraine Jordy n (disorder) Resolved Problem 02/16/2016 [facility] Mitral Problem Resolve 2016-02-16 Bhavesh mario valve d 00:25:42 l prolapse Mitral Jordy n (disorder) valve prolapse (disorder) Resolved Problem 02/16/2016 [facility] Anxiety Problem Active 2016-02-16 Bhavesh mario (finding) 00:25:42 l Anxiety [place] (finding) Active Problem 02/16/2016 [facility] Bipolar Problem Active 2016-02-16 Bhavesh mario (qualifier 00:25:42 l value) Bipolar Antonio (qualifier value) Active Problem 02/16/2016 [facility] Congestive Problem Active 2016-02-16 M emoria heart 00:25:42 l failure [place] (disorder) Congestive heart failure (disorder) Active Problem 02/16/2016 [facility] Depressive Problem Active 2016-02-16 M emoria disorder 00:25:42 l (disorder) Jordy n Depressive disorder (disorder) Active Problem 02/16/2016 [facility] Gastroesop Problem Active 2016-02-16 M emoria hageal 00:25:42 l reflux Antonio disease Gastroesop (disorder) hageal reflux disease (disorder) Active Problem 02/16/2016 [facility] Heart Problem Active 2016-02-16 Memor ia failure 00:25:42 l (disorder) Heart Kristina nn failure (disorder) Active Problem 02/16/2016 [facility] Hypertensi Problem Active 2016-02-16 M emoria ve 00:25:42 l disorder, Antonio systemic Hypertensi arterial ve (disorder) disorder, systemic arterial (disorder) Active Problem 02/16/2016 [facility] Multiple Problem Active 2016-02-16 Mem oria sclerosis 00:25:42 l (disorder) Multiple He rmann sclerosis (disorder) Active Problem 02/16/2016 [facility] Osteoarthr Problem Active 2016-02-16 M emoria itis 00:25:42 l (disorder) Jordy n Osteoarthr itis (disorder) Active Problem 02/16/2016 [facility] Drug Problem Active 2016-02-16 Memor ia overdose 00:25:42 l (disorder) Drug Jordy n overdose (disorder) Active Problem 02/16/2016 [facility] Rheumatoid Problem Active 2016-02-16 M emoria arthritis 00:25:42 l (disorder) Jordy n Rheumatoid arthritis (disorder) Active Problem 02/16/2016 [facility] Respirator Problem Active 2016-02-16 M emoria y failure 00:25:42 l (disorder) Jordy n Respirator y failure (disorder) Active Problem 02/16/2016 [facility] Uterine Problem Active 2016-02-16 Bhavesh mario leiomyoma 00:25:42 l (disorder) Uterine Her sarkar leiomyoma (disorder) Active Problem 02/16/2016 [facility] Urinary Problem Active 2016-02-16 Bhavesh mario tract 00:25:42 l infectious Urinary Her sarkar disease tract (disorder) infectious disease (disorder) Active Problem 02/16/2016 [facility] History of Past Illness Condition Condition Condition Status Onset Resolution Last Treating Co mments Source Name Details Category Date Date Treatment Clinician Date Discharge Problem 2016-02-16 2016-02-16 Memoria Diagnosis: 02-12 00:25:42 00:25:42 l Anemia, 05:00: Antonio unspecifie Discharge 00 d Diagnosis: Anemia, unspecifie d 02/13/2016 02/16/2016 [facility] Discharge Problem 2016-02-16 2016-02-16 Memoria Diagnosis: 02-12 00:25:42 00:25:42 l Abnormal 05:00: [place] uterine Discharge 00 and Diagnosis: vaginal Abnormal bleeding, uterine unspecifie and d vaginal bleeding, unspecifie d 02/13/2016 02/16/2016 [facility] Discharge Problem 2014-09-06 2014-09-06 Memoria Diagnosis: - 16:01:45 16:01:45 l Vaginal 06:00: Antonio bleeding Discharge 00 Diagnosis: Vaginal bleeding 5 09/06/2014 [facility] Discharge Problem 2014-09-06 2014-09-06 Memoria Diagnosis: 09-04 16:01:45 16:01:45 l Dysmenorrh 06:00: Jordy roberto ea Discharge 00 Diagnosis: Dysmenorrh ea 09/04/2014 09/06/2014 [facility] Discharge Problem 2014-08-26 2014-08-26 Memoria Diagnosis: 08-24 17:22:44 17:22:44 l Nausea 06:00: [place] Discharge 00 Diagnosis: Nausea 08/24/2014 08/26/2014 [facility] Discharge Problem 2014-08-26 2014-08-26 Memoria Diagnosis: 08-24 17:22:44 17:22:44 l Constipati 06:00: Jordy roberto on Discharge 00 Diagnosis: Constipati on 08/24/2014 08/26/2014 [facility] Allergies, Adverse Reactions, Alerts Allergy Allergy Status Severity Reaction(s) Onset Inactive Treating Comm ents Source Name Type Date Date Clinician Povidone Allergy Active [facility] Iodine to 04-25 Health substanc 00:00: e 00 Latex Allergy Active UT to 04-25 Health substanc 00:00: e 00 Nsaids Propensi Active 2020- UT ty to 04-25 Health adverse 00:00: reaction 00 s Citalopr Propensi Active Itching 2020-0 Burning Meth ketty am ty to 2-[address] adverse 00:00: Hospita reaction 00 l s to drug Citalopr Propensi Active Itching 2020- Burning [facility] am ty to 2-04 skinBurni Health adverse 00:00: ng reaction 00 skinBurni s ng skin Tramadol Propensi Active Seizure 2017-08 migraines Me thodi ty to 2-11 st adverse 00:00: Hospita reaction 00 l s to drug IODINE Allergy Active High Anaphylaxis 2016- [facility] AND 3- IODIDE 00:00: CONTAINI 00 NG PRODUCTS KETOROLA Allergy Active [facility] C 3- 00:00: 00 Iodine Drug [facility]ain[facility] 00 Center ng Products Ketorola Drug Active [facility]: Medical 00 Center [place] Propensi Active Other (See 20160 migraines Methodi c ty to Comments) 11-07 st adverse 00:00: Hospita reaction 00 l s to drug Povidone Propensi Active Anaphylaxis 2017-0 M ethodi -Iodine ty to 10-19 st adverse 00:00: Hospita reaction 00 l s to drug Iodine Propensi Active Anaphylaxis 2016-0 Met hodi And ty to 10-19 st Iodide adverse 00:00: Hospita Containi reaction 00 l ng s to Products drug Latex Propensi Active Hives 0 Methodi ty to 10-19 st adverse 00:00: Hospita reaction 00 l s to drug Shellfis Propensi Active Anaphylaxis 2016- M ethodi h ty to 10-19 st Derived adverse 00:00: Hospita reaction 00 l s to drug TRAMADOL Allergy Active [facility] 2-13 00:00: 00 VANCOMYC Allergy Active [facility] IN 2-13 ANALOGUE 00:00: S 00 Tramadol Propensi [facility] adverse 00:00: Medical reaction 00 Center s Vancomyc Propensi Active [facility] Analogue adverse 00:00: Medical s reaction 00 Center s Vancomyc Propensi Active Hives Method i in ty to 13 st Analogue adverse 00:00: Hospita s reaction 00 l s to drug POVIDONE Allergy Active 2013-08 [facility] -IODINE 0-03 00:00: 00 LATEX Allergy Active 2013-08 [facility] 0-03 00:00: 00 LEVOFLOX Allergy Active 2013-08 [facility] ACIN 0-03 00:00: 00 Povidone Propensi Active 2013-[address] -[facility]ine ty to 0[facility] adverse 00:00: Medical reaction 00 Center s PROMETHA Allergy Active 2013-08 [facility] ZINE 0-03 00:00: 00 Latex Propensi Active 2013-[address] ty [...] Hospita reaction 00 l s to drug Betadine Betadine Active Memori a Skin Skin 8 l 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 00:00: Jordy n 00 iodinate iodinate Active Memori a d d 03-21 l radiocon radiocon 00:00: Jordy n trast trast 00 dyes dyes Levaquin Levaquin Active Memori a 8-09 l 00:00: Antonio Phenerga Phenerga Active Memori a n n 8 l 00:00: Antonio 00 Betadine Allergy Active [...] ans ) Latex Latex Active Memoria l [place] morphine morphine Active Memori a l [place] vancomyc vancomyc Active Memori a in in l [place] Elavil Elavil Active Memoria l [place] Food Food Active Memoria Seafood Seafood l [place] STEROIDS Allergy Active [facility] Family History Family Member Diagnosis Comments Start Date Stop Date Source Maternal aunt Melanoma [facility] Maternal aunt Cancer [facility] Maternal uncle Leukemia [facility] Family member No history of Methodis t cancer [facility] Maternal grandfather Stroke [facility] Natural mother Diabetes [facility] Natural sister Stroke [facility] Social History Social Habit Start Date Stop Date Quantity Comments Source History SDOH Restorationism Alcohol Frequency Hospita l History SDOH Restorationism Alcohol Std Hospital Drinks History SDOH [facility]ism [facility] Tobacco use and 2021-04-25 2021-04-25 Smokeless tobacco [facility] exposure 00:00:00 00:00:00 non-user Alcohol intake 2021-04-25 2021-04-25 Ex-drinker [facility] 00:00:00 00:00:00 (finding) Alcohol Comment 2018-08-02 2018-08-[address] 00:00:00 00:00:00 [facility] Sex Assigned At [birth year] [facility] 00:00:00 00:00:00 Smoking Status Start Date Stop Date Source Tobacco smoking consumption unknown [facility] Social History [facility] Medications Ordered Filled Start Stop Current Ordering Indication Dosage Frequency Signature Comments Components Source Medication Medication Date Date Medication? Clinician (SIG) Name Name shay 2020-08- No [id number] 1{tbl} Q6H Take 1 Methodi en-codeine 08-[address] (TYLENOL 00:00: 05:59 mouth Hospita WITH 00 :00 every 6 l CODEINE #3) (six) 300-30 mg hours as per tablet needed for moderate pain for up to 5 days .acute pain. shay 2020-08- No [id number] 1{tbl} Q6H Take 1 Methodi en-codeine 08-[address] (TYLENOL 00:00: 05:59 mouth Hospita WITH 00 :00 every 6 l CODEINE #3) (six) 300-30 mg hours as per tablet needed for moderate pain for up to 5 days .acute pain. No known No No known ND medications 9-13 medication He alth 12:13: s 10 bumetanide Yes [id number] 2mg QD Take 1 U T (Bumex) 2 9-13 tablet (2 Healt h MG tablet 00:00: mg total) 00 by mouth 1 (one) time each day. lisinopril Yes [id number] 2.5mg QD Take 1 UT 2.5 MG 9-13 tablet Health tablet 00:00: (2.5 mg 00 total) by mouth 1 (one) time each day. metoprolol Yes [id number] 50mg Q.5D Take 1 U T succinate 9-13 tablet (50 Heal th XL 00:00: mg total) (Toprol-XL) 00 by mouth 2 50 MG 24 hr (two) tablet times a day. lisinopril 2020- No 2.5mg 2.5 mg. UT 2.5 MG 02-08 Health tablet 19:34: 00:00 53 :00 metoprolol 2020- No 50mg 50 mg. UT succinate 02-08- Health XL 19:34: 00:00 (Toprol-XL) 53 :00 50 MG 24 hr tablet lisinopril Yes [id number] 2.5mg QD Take 1 UT 2.5 MG - tablet Health tablet 00:00: (2.5 mg 00 total) by mouth 1 (one) time each day. metoprolol Yes [id number] 50mg Q.5D Take 1 U T succinate - tablet (50 Heal th XL 00:00: mg total) (Toprol-XL) 00 by mouth 2 50 MG 24 hr (two) tablet times a day. lisinopril 2020- No [id number] 2.5mg QD Take 1 UT 2.5 MG -04-25 tablet Health tablet 00:00: 00:00 (2.5 mg 00 :00 total) by mouth 1 (one) time each day. metoprolol 2020- No [id number] 50mg Q.5D Take 1 UT succinate -04-25 tablet (50 Hea lth XL 00:00: 00:00 mg total) (Toprol-XL) 00 :00 by mouth 2 50 MG 24 hr (two) tablet times a day. aspirin 325 Yes 325mg Take 325 M ethodi MG tablet 4-[address] 16:32: mouth. Hospita 59 Takes 3x a l week nitroglycer Yes .3mg Place 0.3 M ethodi in 4-[address] (NITROSTAT) 16:32: the tongue Hospita 0.3 MG SL 59 every 5 l tablet (five) minutes as needed for chest pain. ipratropium Yes 2{puff} Q.25D Inhale 2 Methodi -albuteroL 4-[address] (COMBIVENT 16:32: (four) Hospi ta RESPIMAT) 59 times a l 20-100 day. Last mcg/actuati used February. inhaler linaCLOtide 0 Yes 72ug QD Take 72 Met hodi (LINZESS) 4-[address] 145 mcg 16:32: mouth Hospita capsule 59 daily l before breakfast. Last taken more than 6 months ago. Taken for colitis. metoprolol 0 Yes 50mg Q.5D Take 50 mg M ethodi tartrate 4-[address] (LOPRESSOR) 16:32: (two) Hospi ta 50 mg 59 times a l tablet day. lisinopriL 0 Yes 2.5mg QD Take 2.5 Me thodi (PRINIVIL) 4-[address] 2.5 mg 16:32: mouth Hospita tablet 59 daily. l BUMETanide 0 Yes 2mg Q.5W Take 2 mg Me thodi (BUMEX) 2 4-[address] MG tablet 16:32: (two) Hospita 59 times a l week. FLUoxetine 0 Yes 10mg QD Take 10 mg M ethodi (PROzac) 10 4-[address] MG capsule 16:32: daily. Hospi ta 59 l prazosin 0 Yes 5mg QD Take 5 mg Meth ketty (MINIPRESS) 4-[address] 5 MG 16:32: nightly. Hospita capsule 59 l busPIRone 0 Yes 15mg Q.[id number] Take 15 mg Methodi (BUSPAR) 10 4-26 [id number] [address] mouth [address] MG tablet 16:32: 3D (three) Hospi ta 59 times a l day. ondansetron Yes 8mg Q8H Take 8 mg M ethodi ODT 4-[address] (ZOFRAN-ODT 16:32: every 8 Hos denise ) 8 MG 59 (eight) l disintegrat hours as ing tablet needed for nausea or vomiting. aspirin 325 2020-0 Yes 325mg Take 325 M ethodi MG tablet 4-[address] 11:32: mouth. Hospita 59 Takes 3x a l week nitroglycer 2020-[address] 0.3 M ethodi in 4-[address] (NITROSTAT) 11:32: the tongue Hospita 0.3 MG SL 59 every 5 l tablet (five) minutes as needed for chest pain. ipratropium 2020-0 Yes 2{puff} Q.25D Inhale 2 Methodi -albuteroL 4-[address] (COMBIVENT 11:32: (four) Hospi ta RESPIMAT) 59 times a l 20-100 day. Last mcg/actuati used February. inhaler linaCLOtide Yes 72ug QD Take 72 Met [facility]odi (LINZESS) 4-[address] 145 mcg 11:32: mouth Hospita capsule 59 daily l before breakfast. Last taken more than 6 months ago. Taken for colitis. metoprolol Yes 50mg Q.5D Take 50 mg M [...] Hospita 59 times a l week. FLUoxetine Yes 10mg QD Take 10 mg M ethodi (PROzac) 10 4-[address] MG capsule 11:32: daily. Hospi ta 59 l prazosin 0 Yes 5mg QD Take 5 mg Meth ketty (MINIPRESS) 4-[address] 5 MG 11:32: nightly. Hospita capsule 59 l busPIRone 0 Yes 15mg Q.[id number] Take 15 mg Methodi (BUSPAR) 10 4-26 [id number] [address] mouth 3 [address] MG tablet 11:32: 3D (three) Hospi ta 59 times a l day. ondansetron 0 Yes 8mg Q8H Take 8 mg M ethodi ODT 4-[address] (ZOFRAN-ODT 11:32: every 8 Hos denise ) 8 MG 59 (eight) l disintegrat hours as ing tablet needed for nausea or vomiting. aspirin 325 0 Yes 325mg Take 325 M ethodi MG tablet 4-[address] 11:32: mouth. Hospita 59 Takes 3x a l week nitroglycer 2020-[address] 0.3 M ethodi in 4-[address] (NITROSTAT) 11:32: the tongue Hospita 0.3 MG SL 59 every 5 l tablet (five) minutes as needed for chest pain. ipratropium 0 Yes 2{puff} Q.25D Inhale 2 Methodi -albuteroL 4-[address] (COMBIVENT 11:32: (four) Hospi ta RESPIMAT) 59 times a l 20-100 day. Last mcg/actuati used February. inhaler linaCLOtide Yes 72ug QD Take 72 Met hodi (LINZESS) 4-[address] 145 mcg 11:32: mouth Hospita capsule 59 daily l before breakfast. Last taken more than 6 months ago. Taken for colitis. metoprolol Yes 50mg Q.5D Take 50 mg M ethodi tartrate 4-[address] (LOPRESSOR) 11:32: (two) Hospi ta 50 mg 59 times a l tablet day. lisinopriL Yes 2.5mg QD Take 2.5 Me thodi (PRINIVIL) 4-[address] 2.5 mg 11:32: mouth Hospita tablet 59 daily. l BUMETanide 0 Yes 2mg Q.5W Take 2 mg Me thodi (BUMEX) 2 4-[address] MG tablet 11:32: (two) Hospita 59 times a l week. FLUoxetine Yes 10mg QD Take 10 mg M ethodi (PROzac) 10 4-[address] MG capsule 11:32: daily. Hospi ta 59 l prazosin 0 Yes 5mg QD Take 5 mg Meth ketty (MINIPRESS) 4-[address] 5 MG 11:32: nightly. Hospita capsule 59 l busPIRone 0 Yes 15mg Q.[id number] Take 15 mg Methodi (BUSPAR) 10 4-26 [id number] [address] mouth [address] MG tablet 11:32: 3D (three) Hospi ta 59 times a l day. ondansetron 0 Yes 8mg Q8H Take 8 mg M [...] day for 30 days. levETIRAcet 2020- No 750mg Q.5D Take 1 Me thodi am (KEPPRA) 12-[address] 750 MG 00:00: 04:59 (750 mg Hospita tablet 00 :00 total) by l mouth 2 (two) times a day for 30 days. levETIRAcet 2020- No 750mg Q.5D Take 1 Me thodi am (KEPPRA) 12-[address] 750 MG 00:00: 04:59 (750 mg Hospita tablet 00 :00 total) by l mouth 2 (two) times a day for 30 days. lacosamide 2020- No 200mg Q.5D Take 1 Met hodi (Vimpat) 11-17-[address] 200 mg 00:00: 04:59 (200 mg Hospita tablet 00 :00 total) by l mouth 2 (two) times a day for 30 days. lacosamide 2020- No 200mg Q.5D Take 1 Met hodi (Vimpat) 11-17-[address] 200 mg 00:00: 04:59 (200 mg Hospita tablet 00 :00 total) by l mouth 2 (two) times a day for 30 days. lacosamide 2020- No 200mg Q.5D Take 1 Met hodi (Vimpat) 11-17-[address] 200 mg 00:00: 04:59 (200 mg Hospita tablet 00 :00 total) by l mouth 2 (two) times a day for 30 days. levETIRAcet 2020- No 500mg Q.5D Take 1 Me thodi am (Keppra) 11-17- tablet st 500 MG 00:00: 00:00 (500 [...] 1{tbl} Q12H Take 1 M ethodi -pot 3-24 04-[address] clavulanate 00:00: 04:59 mouth Hosp arcenio (AUGMENTIN) 00 :00 every 12 l 875-125 mg (twelve) per tablet hours for 10 days. amoxicillin 2020- No 1{tbl} Q12H Take 1 M ethodi -pot 3-24 04-[address] clavulanate 00:00: 04:59 mouth Hosp arcenio (AUGMENTIN) 00 :00 every 12 l 875-125 mg (twelve) per tablet hours for 10 days. amoxicillin 2020- No 1{tbl} Q12H Take 1 M ethodi -pot 3-24 04-[address] clavulanate 00:00: 04:59 mouth Hosp arcenio (AUGMENTIN) 00 :00 every 12 l 875-125 mg (twelve) per tablet hours [place] 10 [place] [id number] 1{tbl} Q6H Take 1-2 Methodi en-codeine 3-24 03-[address] (TYLENOL 00:00: 04:59 mouth Hospita WITH 00 :00 every 6 l CODEINE #3) (six) 300-30 mg hours as per tablet needed for moderate pain for up to 5 days .acute pain. acetaminoph 2020- No [id number] 1{tbl} Q6H Take 1-2 Methodi en-codeine 3-24 03-[address] (TYLENOL 00:00: 04:59 mouth Hospita WITH 00 :00 every 6 l CODEINE #3) (six) 300-30 mg hours as per tablet needed for moderate pain for up to 5 days .acute pain. acetaminoph 2020- No [id number] 1{tbl} Q6H Take 1-2 Methodi en-codeine 3-24 03-[address] (TYLENOL 00:00: 04:59 [...] 200mg Q.5D Take 1 Met hodi (VIMPAT) 2-[address] 200 mg 00:00: 05:59 (200 [...] 200mg Q.5D Take 1 Met hodi (VIMPAT) 2-12 13-[address] 200 mg 00:00: 05:59 (200 mg Hospita tablet 00 :00 total) by l mouth 2 (two) times a day for 30 days. levETIRAcet 2020- No 500mg Q.5D Take 1 Me thodi am (KEPPRA) 09-[address] 500 MG 00:00: 05:59 (500 mg Hospita tablet 00 :00 total) by l mouth 2 (two) times a day for 30 days. ALPRAZolam 2020- No 2mg QD Take 2 mg M ethodi (XANAX) 2 09-[address] MG tablet 00:12: 00:00 nightly as H ospita 15 :00 needed for l anxiety. levETIRAcet 2020- No 500mg Q.5D Take 500 Methodi am (KEPPRA) 09-12 01-[address] 500 MG 00:12: 00:00 mouth 2 Hospita tablet 15 :00 (two) l times a day. lacosamide 2020- No 100mg Q.5D Take 100 M ethodi (VIMPAT) 09-12 01-[address] 100 mg 00:12: 00:00 mouth 2 Hospita tablet 15 :00 (two) l times a day. BUMETanide 2020- No 2mg QD Take 2 mg M ethodi (BUMEX) 2 09-[address] MG tablet 23:04: 00:00 daily. Hospi ta 56 :00 l BUMETanide 2020- No 2mg QD Take 1 Meth ketty (BUMEX) 2 09-11 tablet (2 st MG tablet 00:00: 05:59 mg total) Ho spita 00 :00 by mouth l daily for 30 days. BUMETanide 2020- No 2mg QD Take 1 Meth ketty (BUMEX) 2 09-11-02 tablet (2 st MG tablet 00:00: 05:59 mg total) Ho spita 00 :00 by mouth l daily for 30 days. BUMETanide 2020- No 2mg QD Take 1 Meth ketty (BUMEX) 2 09-1102 tablet (2 st MG tablet 00:00: 05:59 mg total) Ho spita 00 :00 by mouth l daily for 30 days. lacosamide 2020- No 150mg Q.5D Take 1 Met hodi (VIMPAT) 09-11-[address] 150 mg 00:00: 00:00 (150 mg Hospita tablet 00 :00 total) by l mouth 2 (two) times a day for 30 days. levETIRAcet 2020- No 750mg Q.5D Take 1 Me thodi am (KEPPRA) 09-11-[address] 750 MG 00:00: 00:00 (750 mg Hospita tablet 00 :00 total) by l mouth 2 (two) times a day for 30 days. ALPRAZolam 2020- No .5mg QD Take 1 Meth ketty (Xanax) 0.5 09-11-[address] MG tablet 00:00: 00:00 (0.5 mg Hosp arcenio 00 :00 total) by l mouth nightly as needed for anxiety or sleep for up to 5 days. lacosamide 2020- No 150mg Q.5D Take 1 Met hodi (VIMPAT) 09-11-[address] 150 mg 00:00: 00:00 (150 mg Hospita tablet 00 :00 total) by l mouth 2 (two) times a day for 30 days. levETIRAcet 2020- No 750mg Q.5D Take 1 Me thodi am (KEPPRA) 09-11-[address] 750 MG 00:00: 00:00 (750 mg Hospita tablet 00 :00 total) by l mouth 2 (two) times a day for 30 days. ALPRAZolam 2020- No .5mg QD Take 1 Meth ketty (Xanax) 0.5 09-11-[address] MG tablet 00:00: 00:00 (0.5 mg Hosp arcenio 00 :00 total) by l mouth nightly as needed for anxiety or sleep for up to 5 days. amoxicillin 2019-08 2020- No 1{tbl} Q12H Take 1 M ethodi -pot 2- 12-[address] clavulanate 00:00: 05:59 mouth [facility]osp [facility] (AUGMENTIN) 00 :00 every 12 l 875-125 mg (twelve) per tablet hours for 10 days. metoprolol 2019-0 2020- No 100mg Take 100 M ethodi tartrate 05-[address] (LOPRESSOR) 17:49: 00:00 mouth. Hos denise 100 mg 43 :00 l tablet morPHINE 2019-0 2020- No 30mg Q.5D Take 30 mg Me thodi (MS CONTIN) 05-08 by mouth 2 s t 30 MG 12 hr 17:49: 00:00 (two) Hosp arcenio tablet 43 :00 times a l day. Extended Release HYDROcodone 2019-0 2020- No Q.5D Take by Me thodi -acetaminop 05-[address] hen (NORCO) 17:49: 00:00 (two) [facility]osp [facility] 5-325 mg 43 :00 times a l per tablet day. diazePAM 2019- 2020- No 10mg Q.[id number] Take 10 mg [facility] (VALIUM) 5 05-08 [id number] by mouth 3 [address] MG tablet 17:49: 00:00 3D (three) [facility]osp arcen[facility] 43 :00 times a l day as needed for anxiety. penbutolol 0 2020- No 20mg QD Take 20 mg [facility] sulfate 05-[address] (PENBUTOLOL 17:49: 00:00 daily. Hos denise ORAL) 43 :00 l ondansetron 0 2020- No 4mg Q8H Take 4 mg [facility] ODT 05-[address] (ZOFRAN-ODT 17:49: 00:00 every 8 Ho spita ) 4 MG 43 :00 (eight) l disintegrat hours as ing tablet needed for nausea or vomiting. methocarbam 2019-0 2020- No 750mg Q.5D Take 750 [facility] ol 05-[address] (ROBAXIN) 17:49: 00:00 mouth 2 [facility] 750 MG 43 :00 (two) l tablet times a day. metoprolol 2019-0 2020- No 50mg Q.5D Take 50 mg [facility] succinate 05-[address] XL 16:17: 00:00 (two) Hospita (TOPROL-XL) 20 :00 times a l 50 mg 24 hr day. tablet lisinopriL 2019- No 2.5mg QD Take 2.5 M ethodi (PRINIVIL) 05-08 09-[address] 2.5 mg 16:17: 00:00 mouth [facility]ospita tablet 20 :00 daily. l butalbital- 2020- No 1{tbl} Q4H Take 1 M ethodi acetaminoph 05-[address] en-caff 00:00: 04:59 mouth Hospita (FIORICET) 00 :00 every 4 l 50-325-40 (four) mg per hours as tablet needed for headaches or migraine for up to 30 days. lactulose 2019- No 20g Q.[id number] Take 30 mL [facility] 20 gram/30 05-08 [id number] (20 g s t mL solution 00:00: 04:59 3D total) by Hospita 00 :00 mouth 3 l (three) times a day as needed (CONSTIPAT ION) for up to 30 days. meclizine 2019- No 25mg Q.[id number] Take 1 [facility] (ANTIVERT) 05-08 [id number] tablet (25 st 25 mg 00:00: 04:59 3D mg total) Hospit a tablet 00 :00 by mouth 3 l (three) times a day as needed for dizziness for up to 30 days. pregabalin 2019- No 50mg Q.[id number] Take 2 [facility] (LYRICA) 25 05-[id number] MG capsule 00:00: 04:59 3D (50 mg Hosp arcenio 00 :00 total) by l mouth 3 (three) times a day for 30 days. lisinopriL 2019- No 2.5mg QD Take 1 Met hodi (PRINIVIL) 05-[address] 2.5 mg 00:00: 04:59 (2.5 mg Hospita tablet 00 :00 total) by l mouth daily for 30 days. metoprolol 2019- No 50mg Q.5D Take 1 Meth ketty succinate 05-08 tablet (50 st XL 00:00: 04:59 mg total) Hospita (TOPROL-XL) 00 :00 by mouth 2 l 50 mg 24 hr (two) tablet times a day for 30 days. levETIRAcet 2019- No 500mg Q.5D Take 1 Me thodi am (Keppra) 05-[address] 500 MG 00:00: 04:59 (500 mg [facility]ospita tablet 00 :00 total) by l mouth 2 (two) times a day for 30 days. lacosamide 2019- No 100mg Q.5D Take 1 Met hodi (VIMPAT) 05-[address] 100 mg 00:00: 00:00 (100 mg [facility]ospita tablet 00 :00 total) by l mouth 2 (two) times a day for 30 days. gabapentin 2019- No 600mg Q.5D Take 600 M ethodi (NEURONTIN) 05-[address] 600 mg 08:52: 00:00 mouth 2 Hospita tablet 08 :00 (two) l times a day. BUMETanide 2019- No 2mg QD Take 2 mg M ethodi (BUMEX) 2 05-[address] MG tablet 08:51: 00:00 daily. Hospi ta 43 :00 l mag 2019-0 Yes 15mL Take [address] [facility] hydrox/alum [...] 2.5mg Take 0.[address] (PROVENTIL, 7-11 07-11 mLs (2.5 Thais es VENTOLIN) 5 00:00: 23:59 mg total) Medical mg/mL 00 :00 by Center nebulizer nebulizati solution on every 6 (six) hours as needed for Wheezing. omeprazole 2020-0 202- No 20mg QD Take [address] [facility] (PRILOSEC) 7- 07-11 [facility] 20 MG 00:00: 23:59 (20 mg Medical capsule 00 :00 total) by Center mouth daily. albuterol 2020-0 202- No 2.5mg Take 0.[address] (PROVENTIL, 7- 07-11 mLs (2.5 Thais es VENTOLIN) 5 00:00: 23:59 mg total) Medical mg/mL 00 :00 by Center nebulizer nebulizati solution on every 6 (six) hours as needed for Wheezing. omeprazole 2019-0 2020- No 20mg QD Take [address] [facility] (PRILOSEC) 7- 07-11 [facility] 20 MG 00:00: 23:59 (20 mg Medical capsule 00 :00 total) by Center mouth daily. albuterol 2020-0 2020- No 2.5mg Take 0.[address] (PROVENTIL, 7 07-11 mLs (2.5 Thais es VENTOLIN) 5 00:00: 23:59 mg total) Medical mg/mL 00 :00 by Center nebulizer nebulizati solution on every 6 (six) hours as needed for Wheezing. omeprazole 2019-0 2020- No 20mg QD Take [address] [facility] (PRILOSEC) 7 07-11 [facility] 20 MG 00:00: 23:59 (20 mg Medical capsule 00 :00 total) by Center mouth daily. dicyclomine 2020-0 2020- No 20mg Q.5D Take [address] [facility] (BENTYL) 20 6-24 06-24 tablet (20 L ukes mg tablet 00:00: 23:59 mg total) Me dical 00 :00 by mouth 2 Center (two) times daily. dicyclomine 2020-0 202- No 20mg Q.5D Take [address] (BENTYL) 20 6-24 06-24 tablet (20 L ukes mg tablet 00:00: 23:59 mg total) Me dical 00 :00 by mouth 2 Center (two) times daily. dicyclomine 2020-0 202- No 20mg Q.5D Take [address] (BENTYL) 20 02-03 tablet (20 L ukes mg tablet 00:00: [...] (four) hours as needed for Wheezing. albuterol No 2{puff} Inhale [address] [facility] HFA 3 03-01 puffs by [facility] (VENTOLIN 00:00: 23:59 mouth via Me dical HFA) 90 00 :00 inhaler Center mcg/actuati every 4 on inhaler (four) hours as needed for Wheezing. fluticasone 2017-08- No 100ug QD 2 sprays [facility] (FLONASE) 10-05 ([address] 50 00:00: 00:00 total) by Hospita mcg/actuati 00 :00 Each Nare l on nasal route spray daily. Ferralet 90 Ferralet 90 Yes JUANCARLOS EMMANUEL 1QD - TA KE UT 90-1 MG 90-1 MG 9-12 M.D. ONE Physici Oral Tablet Oral Tablet 00:00: CAPSULE BY ans 00 MOUTH EVERY DAY ferrous Yes 325 mg = 1 Bhavesh mario gluconate 7-03 tab, PO, l 325 mg oral 10:36: TID, # 90 H ermann tablet 00 tab, 0 Refill(s) Reglan No 10 mg, Memoria 02-12 Route: l 09:11: IVP, Drug Antonio 00 form: INJ, ONCE, Dosing Weight 68.182, [...] 02-12 Route: PO, l 08:17: Drug form: Antonio 00 TAB, ONCE, Dosing Weight 68.182, kg, Priority: STAT, Start date: 02/13/16 3:17:00 CDT, Stop date: 02/13/16 3:17:00 CDT Zofran No 4 mg, Memoria 02-12 Route: l 06:19: IVP, Drug [place] 00 form: INJ, ONCE, Dosing Weight 68.182, kg, Priority: STAT, Start date: 02/13/16 1:19:00 CDT, Stop date: 02/13/16 1:19:00 CDT Saline No Notes: Memoria Flush 0.9% 02-12 (Same as: l 06:07: BD [place] Posiflush) Ibuprofen Yes Special Memor ia 800 MG Oral 09-04 Instructio l Tablet 08:52: ns: Take Antonio [Motrin] with food Ketorolac No 4 days Memor ia 09-04 l 08:49: Antonio 00 gabapentin Yes 600 mg = 1 M emoria 600 MG Oral 1-12 tab, PO, l Tablet 21:41: TID, # 90 Jordy n [Neurontin] 00 tab, 0 Refill(s) atorvastati Yes 20 mg = 1 M emoria n 20 MG 1-12 tab, PO, l Oral Tablet 21:41: Bedtime, # [place] [Lipitor] 00 30 tab, 0 Refill(s) metoprolol [...] Date Status Commen ts Source Name Name [facility] 2020-11-03 Completed [facility] 00:00:00 [facility] 2020-11-03 Completed [facility] 00:00:00 [facility] 2020-11-03 Completed [facility] 00:00:00 Hospital Vital Signs Vital Name Observation Time Observation Value Comments Source HEIGHT 2021-05-05 165.1 cm 20:18:00 WEIGHT 2021-05-05 68.04 kg 20:18:00 HEIGHT 2021-05-05 165.1 cm 20:18:00 WEIGHT 2021-05-05 68.04 kg 20:18:00 Systolic blood 2021-04-25 120 mm[Hg] [facility] pressure 16:25:00 Diastolic blood 2021-04-25 77 mm[Hg] [facility] pressure 16:25:00 Heart rate 2021-04-25 72 /min [facility] 16:25:00 Body height 2021-04-25 167.6 cm [facility] 16:25:00 Body weight 2021-04-25 78.926 kg [facility] 16:25:00 BMI 2021-04-25 28.08 kg/m2 [facility] 16:25:00 HEIGHT 2020-02-04 161 cm 00:00:00 WEIGHT 2020-02-04 68.04 kg 00:00:00 HEIGHT 2020-02-04 161 cm 00:00:00 WEIGHT 2020-02-04 68.04 kg 00:00:00 Systolic blood 2021-06-29 147 mm[Hg] [facility] pressure 16:16:09 [facility] Diastolic blood 2021-06-29 67 mm[Hg] [facility] pressure 16:16:09 [facility] Heart rate 2021-06-29 94 /min [facility] 16:16:09 Hospital Body temperature 2021-06-29 36.89 Cecily [facility] 16:16:09 Hospital Oxygen saturation 2021-06-29 94 /min [facility] in Arterial blood 16:16:09 Hospital by Pulse oximetry Systolic blood 2021-05-06 124 mm[Hg] [facility] pressure 01:23:00 [facility] Diastolic blood 2021-05-06 68 mm[Hg] [facility] pressure 01:23:00 [facility] Heart rate 2021-05-06 84 /min [facility] 01:23:00 [facility] Body temperature 2021-05-[address] [facility] 01:23:00 [facility] Respiratory rate 2021-05-06 18 /min [facility] 01:23:00 [facility] Oxygen saturation 2021-05-05 99 /min [facility] es in Arterial blood 23:45:00 [facility] nter by Pulse oximetry Body height 2021-05-[address] [facility] 20:18:00 [facility] Body weight 2021-05-[address] [facility] 20:18:00 [facility] BMI 2021-05-05 24.96 kg/m2 [facility] 20:18:00 [facility] Systolic blood 2020-12-16 120 mm[Hg] Location: E; [facility] pressure 11:22:00 Position: Sitting Diastolic blood 2020-12-16 77 mm[Hg] Location: [facility] pressure 11:22:00 Position: Sitting Body height 2020-12-16 63 [in_us] [facility] 11:22:00 Weight 2020-12-16 165 [lb_av] [facility] 11:22:00 Body mass index 2020-12-16 29.23 kg/m2 [facility] (BMI) [Ratio] 11:22:00 Heart Rate 2020-12-16 90 /min [facility] 11:22:00 Heart rate 2020-12-06 78 /min [facility] 15:01:00 Hospital Respiratory rate 2020-12-06 16 /min [facility] 15:01:00 Hospital Oxygen saturation 2020-12-06 97 /min [facility] in Arterial blood 15:01:00 Hospital by Pulse oximetry Systolic blood 2020-12-06 124 mm[Hg] [facility] pressure 13:03:19 Hospital Diastolic blood 2020-12-06 65 mm[Hg] [facility] pressure 13:03:19 Hospital Body temperature 2020-12-06 36.39 Cecily [facility] 13:03:19 Hospital Body height 2020-12-03 165.1 cm [facility] 21:48:00 Hospital Body weight 2020-12-03 63.504 kg [facility] 21:48:00 Hospital BMI 2020-12-03 23.30 kg/m2 [facility] 21:48:00 Hospital Systolic blood 2020-12-02 112 mm[Hg] Location: [facility] pressure 12:05:00 Position: Sitting Diastolic blood 2020-12-02 68 mm[Hg] [facility] Physici ans pressure 12:05:00 Position: Sitting Body height 2020-12-02 63 [in_us] [facility] 12:05:00 Weight 2020-12-02 168 [lb_av] [facility] 12:05:00 Body mass index 2020-12-02 29.76 kg/m2 [facility] (BMI) [Ratio] 12:05:00 Heart Rate 2020-12-02 72 /min [facility] 12:05:00 Systolic (mm Hg) 2016-02-13 [facility] rmann 11:30:00 Diastolic (mm Hg) 2016-02-13 [facility] ermann 11:30:00 Heart Rate 2016-02-13 [facility] 11:30:00 Respitory [facility] 2016-[facility]-13 [facility] 11:30:00 Temperature Oral 2016-02-13 98.2 F [facility] [...] ermann 22:03:00 Temperature Oral 2014-08-24 98.0 F [facility] (F) 22:03:00 Respitory Rate 2014-08-24 [facility] 22:03:00 Systolic (mm Hg) 2014-08-24 [facility] 22:03:00 Heart Rate 2014-08-24 [facility] 22:03:00 Systolic (mm Hg) 2014-08-24 [facility] 17:24:00 Respitory Rate 2014-08-24 [facility] 17:24:00 Diastolic (mm Hg) 2014-08-24 [facility] 17:24:00 Heart Rate 2014-08-24 [facility] 17:24:00 Temperature Oral 2014-08-24 98.2 F [facility] Dru rmann (F) 17:24:00 Height 2014-08-24 160.02 cm [facility] 17:24:00 BMI Calculated 2014-08-24 [facility] 17:24:00 Weight 2014-08-24 [facility] 17:24:00 Procedures Procedure Date / Time Performing Clinician Source Performed XR KNEE 1 OR 2 VW RIGHT 2021-06-29 16:46:14 Braulio, [facility] CT SPINE CERVICAL WITHOUT 2021-05-05 22:50:00 Ryanne Hurtado [facility] IV CONTRAST [facility] CT BRAIN WITHOUT IV 2021-05-05 22:38:00 Ryanne Hurtado [facility] CONTRAST [facility] ED ECG INTERPRETATION 2021-05-05 20:57:00 [facility]urtado [facility] LEVETIRACETAM LEVEL 2021-05-05 20:34:00 Ryanne Hurtado [facility] CBC W/PLT COUNT & AUTO 2021-05-05 20:34:00 Ryanne Hurtado [facility] DIFFERENTIAL [facility] COMPREHENSIVE METABOLIC 2021-05-05 20:34:00 Ryanne Hurtado [facility] PANEL [facility] TROPONIN I 2021-05-05 20:34:00 Ryanne Hurtado [facility] CBC W/PLT COUNT & AUTO 2021-05-05 20:34:00 Ryanne Hurtado [facility] REPORT OF PROCEDURE - 2021-05-05 00:00:00 Provider, Lona [facility] ENDOSCOPY SCAN [facility] [L] BMP8+eGFR 2020-12-16 00:00:00 [facility] [QL] CBC (INCLUDES 2020-12-16 00:00:00 [facility] DIFF/PLT) [QL] LIPID PANEL 2020-12-16 00:00:00 [facility] [QL] TSH, 3RD GENERATION 2020-12-16 00:00:00 [facility] W/REFLEX TO FT4 [QL] HEMOGLOBIN A1c 2020-12-16 00:00:00 [facility] POC GLUCOSE 2020-12-06 05:18:00 Obdulio [facility]agland spital UNMONITORED VIDEO-EEG 12 2020-12-05 19:27:44 Maria Elena [facility] HRS 1MIN-26HRS [facility] EEG SETUP 2020-12-05 09:23:13 Maria Elena [facility] EEG (ROUTINE) 2020-12-04 16:25:57 Maria Elena [facility] POC GLUCOSE 2020-12-04 05:03:00 Obdulio [facility] URINE DRUGS OF ABUSE 2020-12-04 04:55:00 [facility] HEAD WO CONTRAST 2020-12-04 02:48:09 Bharat Kevin [facility] (LEVETIRACETAM) 2020-12-04 01:43:00 [facility] LEVEL ALCOHOL LEVEL, BLOOD 2020-12-04 01:43:00 Billie Stevenson [facility] TROPONIN 2020-12-04 01:43:00 Bharat Kevin spital XR CHEST 1 VW PORTABLE 2020-12-03 23:52:00 Bladimir Brumfield [facility] COVID-19 QUALITATIVE 2020-12-03 22:41:00 [facility] RT-PCR [facility] ME CRITICAL CARE, E/M 2020-12-03 21:55:[address] [facility] 30-74 MINUTES [facility] ECG ED PRELIMINARY 2020-12-03 21:55:13 [facility] INTERPRETATION [facility] HC COMPLETE BLD COUNT 2020-12-03 21:52:[address] [facility] W/AUTO DIFF [facility] PROTHROMBIN TIME WITH INR 2020-12-03 21:52:00 [facility] THROMBOPLASTIN 2020-12-03 21:52:00 [facility] TIME (PTT) [facility] COMPREHENSIVE METABOLIC 2020-12-03 21:52:00 [facility] PANEL [facility] TROPONIN 2020-12-03 21:52:00 [facility] NATRIURETIC PEPTIDE 2020-12-03 21:52:[address] [facility] HCG QUALITATIVE, SERUM 2020-12-03 21:52:00 [facility] SCREEN [facility] ESTIMATED GFR 2020-12-03 21:52:00 [facility] CREATINE KINASE, TOTAL 2020-12-03 21:52:00 [facility] (CPK) [facility] ECG 12-LEAD 2020-12-03 21:48:15 [facility] [L] BMP8+eGFR 2020-12-02 00:00:00 [facility] [QL] CBC (INCLUDES 2020-12-02 00:00:00 [facility] DIFF/PLT) [QL] LIPID PANEL 2020-12-02 00:00:00 [facility] [QL] HEMOGLOBIN A1c 2020-12-02 00:00:00 [facility] [QL] B TYPE NATRIURETIC 2020-12-02 00:00:00 [facility] PEPTIDE (BNP) URINALYSIS SCREEN AND 2020-11-18 00:45:[address] [facility] MICROSCOPY, WITH REFLEX TO [place] CULTURE HC COMPLETE BLD COUNT 2020-11-17 22:57:00 [facility] W/AUTO DIFF [place] COMPREHENSIVE METABOLIC 2020-11-17 22:57:00 [facility] PANEL [place] ESTIMATED GFR 2020-11-17 22:57:00 [facility] [place] URINE CULTURE 2020-11-17 22:55:00 [facility] [place] XR HAND 3+ VW RIGHT 2020-11-03 04:24:40 Woo [facility] Nelsy EEG AWAKE/DROWSY LESS THAN 2020-09-17 16:49:14 [facility] 41 MIN VITAMIN B12 LEVEL 2020-09-17 10:40:00 [facility] VITAMIN B1 LEVEL, WHOLE 2020-09-17 10:40:00 [facility] BLOOD THYROID STIMULATING 2020-09-17 10:40:00 [facility] HORMONE LIPID PANEL 2020-09-17 10:40:00 [facility] HEMOGLOBIN A1C 2020-09-17 10:40:00 [facility] RAPID HIV 1 & 2 2020-09-17 10:40:00 [facility] SYPHILIS TREPONEMA SCREEN 2020-09-17 10:40:00 [facility] WITH RPR CONFIRMATION (REVERSE ALGORITHM) HC COMPLETE BLD COUNT 2020-09-17 10:40:00 [facility] W/AUTO DIFF BASIC METABOLIC PANEL 2020-09-17 10:40:00 [facility] MAGNESIUM LEVEL 2020-09-17 10:40:00 [facility] 2020-09-17 10:40:00 [facility] ESTIMATED GFR 2020-09-17 10:40:00 [facility] ECG 12-LEAD 2020-09-17 10:27:21 [facility] COVID-19 QUALITATIVE 2020-09-16 21:32:00 [facility] ED PRELIMINARY 2020-09-16 20:03:41 [facility] INTERPRETATION ECG 12-LEAD 2020-09-16 19:53:37 [facility] HC COMPLETE BLD COUNT 2020-09-16 19:49:00 [facility] W/AUTO DIFF CREATINE KINASE, TOTAL 2020-09-16 19:49:00 [facility] (CPK) COMPREHENSIVE METABOLIC 2020-09-16 19:49:00 [facility] PANEL ESTIMATED GFR 2020-09-16 19:49:00 [facility] EEG AWAKE/ASLEEP LESS THAN 2020-09-11 16:51:29 [facility] 41 MIN CLOSTRIDIUM DIFFICILE 2020-09-11 15:09:00 [facility] TOXIN TROPONIN 2020-09-11 11:59:00 [facility] spital LACTIC ACID LEVEL, SEPSIS 2020-09-11 11:59:00 [facility] - NOW AND REPEAT 2X EVERY 3 HOURS PROLACTIN LEVEL 2020-09-11 11:59:00 [facility] spital TROPONIN 2020-09-11 08:50:00 [facility] spital LACTIC ACID LEVEL 2020-09-11 08:50:00 [facility] COVID-19 QUALITATIVE 2020-09-11 06:43:00 [facility] ABDOMEN PELVIS WO 2020-09-11 05:29:19 [facility] CONTRAST CT HEAD WO CONTRAST 2020-09-11 05:29:09 [facility] URINE CULTURE 2020-09-11 05:27:00 [facility] XR CHEST 1 VW PORTABLE 2020-09-11 05:05:26 [facility] ECG 12-LEAD 2020-09-11 05:04:54 Messi Jo spital LACTIC ACID LEVEL, SEPSIS 2020-09-11 05:02:00 Messi Jo [facility] - NOW AND REPEAT 2X EVERY 3 HOURS URINALYSIS SCREEN AND 2020-09-11 04:56:00 [facility] MICROSCOPY, WITH REFLEX TO CULTURE URINE DRUGS OF ABUSE 2020-09-11 04:56:00 Jose Elias Torres [facility] SCREEN TROPONIN 2020-09-11 04:44:00 Messi Jo spital HCG QUALITATIVE, SERUM 2020-09-11 04:44:00 [facility] SCREEN CREATINE KINASE, TOTAL 2020-09-11 04:43:00 [facility] (CPK) ECG ED PRELIMINARY 2020-09-11 04:35:32 [facility] INTERPRETATION HC COMPLETE BLD COUNT 2020-09-11 04:32:00 [facility] W/AUTO DIFF COMPREHENSIVE METABOLIC 2020-09-11 04:32:00 [facility] PANEL ESTIMATED GFR 2020-09-11 04:32:00 [facility] CHLAMYDIA GONORRHOEAE AND 2020-07-16 07:47:00 [facility] TRICHOMONAS PANEL WET PREP 2020-07-16 06:20:00 Dusty P[address] [facility] CT ABDOMEN PELVIS WO 2020-07-16 03:58:20 Dusty Pate [facility] CONTRAST COVID-19 QUALITATIVE 2020-07-16 03:16:00 [facility] RT-PCR HC COMPLETE BLD COUNT 2020-07-16 03:16:00 Dusty Pate [facility] W/AUTO DIFF COMPREHENSIVE METABOLIC 2020-07-16 03:16:00 [facility] PANEL LIPASE LEVEL 2020-07-16 03:16:00 [facility] ESTIMATED GFR 2020-07-16 03:16:[address] [facility] URINE CULTURE 2020-07-16 00:38:00 Inez Garcíaist H ospital [place] HCG QUALITATIVE, URINE 2020-07-15 23:58:00 Pedro [facility] SCREEN [place] URINALYSIS SCREEN AND 2020-07-15 23:58[facility] [place] CULTURE US DUPLEX VENOUS UPPER 2020-05-08 06:10:[address] [facility] EXTREMITY RIGHT Tari EEG EXTENDED 41 - 60 MINS 2020-05-07 21:36:38 [facility] HCG QUALITATIVE, SERUM 2020-05-07 17:51:00 [facility] SCREEN MRI BRAIN W WO CONTRAST 2020-05-07 03:11:37 [facility] TTE COMPLETE, WO CONTRAST, 2020-05-06 22:42:15 [facility] W AGITATED SALINE ([id number]) Tari VITAMIN B12 LEVEL 2020-05-06 16:52:00 [facility] FOLATE LEVEL 2020-05-06 16:52:00 [facility] TROPONIN 2020-05-06 14:33:00 [facility] HC COMPLETE BLD COUNT 2020-05-06 12:04:00 [facility] W/AUTO DIFF COMPREHENSIVE METABOLIC 2020-05-06 12:04:00 [facility] PANEL TROPONIN 2020-05-06 12:04:00 [facility] ESTIMATED GFR 2020-05-06 12:04:00 [facility] COVID-19 QUALITATIVE 2020-05-06 07:30:00 [facility] RT-PCR URINE CULTURE 2020-05-06 06:34:00 [facility] CT HEAD WO CONTRAST 2020-05-06 06:10:12 [facility] HC COMPLETE BLD COUNT 2020-05-06 05:53:00 [facility] W/AUTO DIFF PARTIAL THROMBOPLASTIN 2020-05-06 05:53:00 [facility] TIME (PTT) PROTHROMBIN TIME WITH INR 2020-05-06 05:53:00 [facility] COMPREHENSIVE METABOLIC 2020-05-06 05:53:00 [facility] PANEL URINALYSIS SCREEN AND 2020-05-06 05:53:00 [facility] MICROSCOPY, WITH REFLEX TO CULTURE TROPONIN 2020-05-06 05:53:00 [facility] B NATRIURETIC PEPTIDE 2020-05-06 05:53:00 [facility] THYROID STIMULATING 2020-05-06 05:53:00 [facility] HORMONE AMMONIA LEVEL 2020-05-06 05:53:00 [facility] URINE DRUGS OF ABUSE 2020-05-06 05:53:00 [facility] SCREEN ALCOHOL LEVEL, BLOOD 2020-05-06 05:53:00 [facility] ESTIMATED GFR 2020-05-06 05:53:00 [facility] XR CHEST 1 VW PORTABLE 2020-05-06 05:49:36 [facility] POC GLUCOSE 2020-05-06 05:41:00 [facility] ECG 12-LEAD 2020-05-06 05:37:10 [facility] ECG ED PRELIMINARY 2020-05-06 05:14:03 [facility] INTERPRETATION History [facility] of [facility] Blood transfusion [facility] Plan of Care Planned Activity Planned Date [...] Luke s Test 00:00:00 (procedure) [code = [facility] [id number]] Future Scheduled 2025-09-[address] [facility] Test 00:00:00 (procedure) [code = [facility] 10005556] Future Scheduled 2023-08-[address] [facility] Test 00:00:00 (procedure) [code = [facility] 09768802] Future Scheduled 2021-06-29 COVID-19 [facility]ACCINE (1) [facility] 11:36:01 [code = COVID-19 VACCINE (1)] Future Scheduled 2021-06-29 [facility] 11:36:01 screening (procedure) [code = 255637102] Future Scheduled 2021-06-29 Screening for [facility] Test 11:36:01 malignant neoplasm of cervix (procedure) [code = 200448301] Future Scheduled 2021-06-29 [facility] 11:36:01 [code = INFLUENZA VACCINE] Future Scheduled 2021-06-29 COVID-19 VACCINE (1) [facility] 11:36:01 [code = COVID-19 VACCINE (1)] Future Scheduled 2021-06-29 [facility] Test 11:36:01 screening (procedure) [code = 470229228] Future Scheduled 2021-06-29 [facility]ening for [facility] Test 11:36:01 malignant neoplasm of cervix (procedure) [code = 223002015] Future Scheduled 2021-06-29 [facility] 11:36:01 [code = INFLUENZA VACCINE] Future Scheduled 2021-04-[address] [facility] Test 00:00:00 (#1) [code = [facility] INFLUENZA [facility]ACCINE (#1)] Future Scheduled 2021-04-[address] [facility] Test 00:00:00 (#1) [code = [facility] INFLUENZA VACCINE (#1)] Future Scheduled 2020-08-[address] [facility] Test 00:00:00 (12+) [code = [facility] DEPRESSION SCREENING (12+)] Future Scheduled 2020-08-[address] [facility] Test 00:00:00 (12+) [code = [facility] DEPRESSION SCREENING (12+)] Future Scheduled 2020-04-[address] [facility] Test 00:00:00 (#1) [code = [facility] INFLUENZA VACCINE (#1)] Future Scheduled [address] [facility] 00:[facility]:00 malignant neoplasm Medical C enter of cervix (procedure) [code = 732523475] Future Scheduled [address] [facility] Test 00:00:00 malignant neoplasm Medical [facility] enter of cervix (procedure) [code = 270286522] Future Scheduled [address] [facility] Test 00:00:00 malignant neoplasm Medical C enter of cervix (procedure) [code = 063476675] Future Scheduled [address] [facility] Test 00:00:00 SCREENING [code = [facility] Ce [facility]ter HEPATITIS C SCREENING] Future Scheduled [address] [facility] Test 00:00:00 SCREENING [code = Medical Ce nter HEPATITIS C SCREENING] Future Scheduled 1985 COVID-19 VACCINE (1) [facility] Test 00:00:00 [code = COVID-[address] VACCINE (1)] Future Scheduled 1985 COVID-19 VACCINE (1) [facility] Test 00:00:00 [code = COVID-[address] VACCINE (1)] Future Scheduled [address] [facility] 00:00:00 malignant neoplasm [facility] enter of colon (procedure) [code = 328764883] Future Scheduled [address] [facility] Test 00:00:00 malignant neoplasm Medical C enter of colon (procedure) [code = 437648812] Future Scheduled COVID-19 VACCINE (1) [facility] [code = COVID-19 VACCINE (1)] Future Scheduled [facility] screening (procedure) [code = 037668255] Future Scheduled Screening for [facility] Test malignant neoplasm of cervix (procedure) [code = 586916020] Future Scheduled INFLUENZA VACCINE [facility] Test [code = INFLUENZA VACCINE] Encounters Start End Encounter Admission Attending Care Care Encounter Source Date/Time Date/Time Type Type Clinicians Facility Department ID 2021-04-25 Outpatient ELISE [facility] [id number] [place] 12:28:46 [facility] 2020-12-18 Outpatient ELISE [facility] [id number] [place] 04:17:31 [facility] 2021-06-29 2021-06-29 Emergency James, 1.2.840.1 [id number] Methodi 10:17:00 12:01:00 Haroon Young 83380.1.[address] 3.430.2.7 Hospit a .3.675643 l .8 2021-06-29 2021-06-29 Travel 1.2.840.1 1.2.260.428 3323 [id number] Methodi 00:00:00 00:00:[address] 3.430.2.7 0.2.7.3.698 Ho spita .3.180830 084.8 l .8 2021-05-05 2021-05-06 Emergency ER [place], [facility] [id number] 20:22:00 01:24:[address] [facility] 2021-05-05 2021-05-05 Emergency ER [facility] Emergency [id number] [facility] 20:07:00 20:07:00 2021-05-05 2021-05-05 Travel [facility] [id number] [facility] 00:[facility]:00 [facility] 2021-04-25 2021-04-[address] [facility] 1.2.840.114 [id number] [place] 10:00:00 12:28:[address] [facility] 350.1.13.58 H deni BAILEY 4 9.2.7.2.686 [id number] 2021-02-18 2021-02-18 Emergency E MATTHIAS, [facility] 7503 [facility] 08:39:00 12:51:00 TEJAL 2021-02-08 2021-02-08 Orders Waleska Henriquez [facility] 1.2.840.11 4 [id number] [place] 00:00:00 00:00:00 Only Waleska Henriquez MED 350.1.13.58 Health [place] 4 9.2.7.2.686 [id number] 4 2021-02-08 2021-02-[address] [facility] 1.2.840.114 [id number] 00:00:00 00:00:[address] [facility] MED 350.1.13.58 PLAZA 4 9.2.7.2.686 [id number] 4 2020-12-20 2020-12-20 Telephone Vinson, 1.2.840.1 [id number] 2100 [id number] Methodi 00:00:00 00:00:[address] 3.430.2.7 Hospit a .3.465746 l .8 2020-12-16 2020-12-16 Appointmen VINCE OLIVARES [facility] 7410 7276 [place] 11:00:00 11:00:00 t; KIT OLIVARES, Advanced P jn PANTOJA M.D. Cardiology [facility] 2020-12-14 2020-12-14 Telephone Vinson, 1.2.840.1 [id number] 2099 [id number] Methodi 00:00:00 00:00:[address] 3.430.2.7 Hospit a .3.856751 l .8 2020-12-07 2020-12-08 Outpatient E ERLINDA, SW PUL 7502 [facility] 17:43:00 13:15:00 VIRAL 2020-12-08 2020-12-08 EXT MH OP Santosh, EXT [facility]DP 1.2.840.114 1 [id number] [place] 00:00:00 00:00:00 Adnan LOCATION 350.1.13.58 H ealth 9.2.7.2.686 [id number] 0 2020-12-06 2020-12-06 Appointmen JEANNIE CLARKE UTP [id number] [place] 14:00:00 14:00:00 t; JEANNIE BEHARI Phys ici BEHARI millicent CAMACHO SANDIPAN SANDIPAN PATI, M.D. PATI, M.D. 2020-12-03 2020-12-06 [facility] 1.2.840.1 [id number] Methodi 16:45:00 11:32:00 Encounter Obie Obdulio Gina 78278.1.[address] 3.430.2.7 Hospit a .3.209672 l .8 2020-12-02 2020-12-02 App[facility] [id number] [place] 11:15:00 11:15:00 t; KIT OLIVARES, Surgery - Chalo Cruz M.D. 2020-11-17 2020-11-17 Emergency García, 1.2.840.1 [id number] 2100 [id number] Methodi 17:26:00 20:59:[address] Aylin 3.430.2.7 Hospit a .3.441586 l .8 2020-11-17 2020-11-17 AppointVINCE Suresh UTP [id number] [place] 15:00:00 15:00:00 t; Carter ROQUE i, M.D. ans ASHTON, M.D. 2020-11-17 2020-11-17 Travel 1.2.840.1 1.2.397.343 6212 [id number] Methodi 00:00:00 00:00:[address] 3.430.2.7 0.2.7.3.698 Ho spita .3.453504 084.8 l .8 2020-11-02 2020-11-03 Emergency Dionicio, 1.2.840.1 [id number] 2 [id number] Methodi 23:00:00 01:47:[address] Nelsy 3.430.2.7 Hospit a .3.204319 l .8 2020-11-02 2020-11-02 Travel 1.2.840.1 1.2.153.519 5028 357249 Methodi 00:00:00 00:00:[address] 3.430.2.7 0.2.7.3.698 Ho spita .3.090565 084.8 l .8 2020-09-16 2020-09-17 Emergency [place] R. 1.2.840.1 1041 24654 [id number] Methodi 13:34:00 13:30:00 Nancy Brannon 65640.1.[address] Hilairo Thakkar Britni 3.430.2.7 Hospita .3.003159 l .8 2020-09-10 2020-09-11 Emergency TalonlizJose Elias Rusty. 1.2.840.1 1 24949 [id number] Methodi 22:04:00 18:12:00 Vitor Oden 16886.1.[address] Messi Jo 3.430.2.7 H ospita Hilario Thakkar Britni .3.284633 l .8 2020-09-10 2020-09-10 Travel 1.2.840.1 1.2.735.112 4484 473576 Methodi 00:00:00 00:00:[address] 3.430.2.7 0.2.7.3.698 Ho spita .3.031452 084.8 l .8 2020-07-15 2020-07-16 Emergency García, 1.2.840.1 [id number] 2099 [id number] Methodi 20:20:00 01:48:[address] Aylin 3.430.2.7 Hospit a .3.610690 l .8 2020-07-15 2020-07-15 Travel 1.2.840.1 1.2.458.100 8713 184650 Methodi 00:00:00 00:00:[address] 3.430.2.7 0.2.7.3.698 Ho spita .3.019795 084.8 l .8 2020-05-06 2020-05-08 Emergency Kevin Sood 1.2.840.1 1041 26082 [id number] Methodi 00:09:00 12:49:00 Blaze Squires 05194.1.[address] 3.430.2.7 Hospit a .3.970245 l .8 2020-05-06 2020-05-06 Travel 1.2.840.1 1.2.990.432 1402 [id number] Methodi 00:00:00 00:00:[address] 3.430.2.7 0.2.7.3.698 Ho spita .3.208695 084.8 l .8 2020-02-20 2020-02-20 Emergency ER [facility] Emergency [id number] [facility] 19:04:00 19:04:00 2020-02-04 2020-02-04 Outpatient C RHODA [facility] RAD [id number] 01965 [place] 10:15:00 23:59:00 CWANZA [facility] 2020-02-04 2020-02-04 Emergency ER [facility] Emergency [id number] [facility] 05:29:00 05:29:00 2019-12-03 2019-12-03 Emergency E BRITNI RODRIGUEZ [facility] 7501 Memoria 16:11:00 19:03:00 [facility] 2019-12-03 2019-12-03 Outpatient KARISHMA, [facility] 0122 Memoria 17:00:00 18:55:00 [facility] 2019-10-12 2019-10-12 Emergency [facility] [id number] [facility] 17:06:00 17:06:00 [id number] 2019-08-25 2019-08-25 [facility] 17:44:00 17:44:00 2016-02-13 2016-02-13 [facility] [id number] Memoria 05:43:00 11:41:00 Emergency r Antonio l [facility] 2014-09-04 2014-09-04 EC Patel [facility] [id number] Memoria 07:09:00 09:15:00 Emergency r [place] [address] [facility] 2014-08-24 2014-08-24 [facility] [id number] Memoria 17:17:00 22:15:00 Emergency r [place] [address] [facility] Results Test Description Test Time Test Comments Results Result Comments Source Levetiracetam level 2021-05-11 14:27:33 Test Item Value Reference Range Interpretation Comme nts Levetiracetam <2.0 mcg/mL L Ref erence Range: 12.0-46.0 Toxic (test code = level is not we ll established. Interpretation ) should include a clinical evaluation. For additional information, please refer tohttp://[employer].Compete/faq/SVO361(This link is being p rovided forinformational/educational purposes only.) This test was developed and its analytical perf ormance characteristics have been determined by [facility]. It has not been cleared or approved by theFDA. This assay has been validated pursuant to the CLIA regulations and is used for clinical purpos es. CIRO (test code Perfo = CIRO) rming Lab *GAGANDEEP [facility] odette Felipe [facility], [address] [place] [address] [phone] T Anita chavez MD Lab Abnor Interpretation mal (test code = 03557-9) [facility] [id number] 14:27:33 Test Item Value Reference Interpretation Comments Range Levetiracetam (test <2.0 mcg/mL L Reference code = 4428194) Range: 12.0- 46.0 Toxic le adriana is not well established. Interpretation should incl ude a clinical evaluation. For additional information, pl ease refer tohttp://educat ion.[employer] .[employer]/ faq/DNY898(This link is being provid ed forinformationa l/edu cational purpos es only.) This jose t was developed and i ts analytical performance characteristics have been determined by [employer]. It has not been cleared or appr christiano by theFDA. This assay has been validated pursu ant to the CLIA regulations and is used for clinic al purposes. CIRO (test code = Performing Lab CIRO) *GAGANDEEP [employer] [facility], [address] [place] [phone] Parminder Szymanski MD Lab Interpretation Abnormal (test code = 79754-1) [facility], [facility]IN, WITHOUT [id number] 23:05:00 Unlisted Reason for Exam - Click Yes and Enter Reason Below->No [facility] 1975 Sex: FFINAL REPORT CT, BRAIN, [...] is recommended for further characterization. Signed: Aneudy Asencio MDReport Verified Date/Time: 05/05/2021 23:05:29 CT, SPINE, CERVICAL, WO [id number] 23:05:00Unlisted Reason for Exam - Click Yes and Enter Reason Below->No [facility] 1975 Sex: FFINAL REPORT CT, BRAIN, [...] is recommended for further characterization. Signed: Aneudy Asencio [facility] Verified Date/Time: 05/05/2021 23:05:29 [facility]ITAL[facility] [id number] 21:22:45 Test Item Value Reference Range Interpretation Comments Troponin I (test code = <0.03 0.00-0.15 11292-2) CIRO (test code = CIRO) Troponin I [...] failure, acidosis, acute neurological disease, and persistent tachyarrhythmia.[facility] ID - THELMA Lab Interpretation (test Normal code = 96881-2) [facility] [id number] 21:22:45 Test Item Value Reference Range Interpretation Comments Troponin I (test code = <0.03 0.00-0.15 04778-4) CIRO (test code = CIRO) Troponin I [...] failure, acidosis, acute neurological disease, and persistent tachyarrhythmia.[facility] ID - THELMA Lab Interpretation (test Normal code = 89187-7) [facility] [id number] 21:22:45 Test Item Value Reference Range Interpretation [...] failure, acidosis, acute neurological disease, and persistent tachyarrhythmia.Mold [employer]er ID - JUSTINComprehensive metabolic [id number] 21:20:36 Test Item Value Reference Interpretation Comments Range Protein, Total (test 7.5 See_Comment Specime n code = 2885-2) slightly hemolyzed [Automated message] The system which generated this result transmitted reference range : 6.0 - 8.5 gm/dL . The reference range was not used to interpret this result as normal/abnormal . Albumin (test code = 4.1 g/dL 3.5-5.0 [place] n 24021-2) slightly hemolyzed Alkaline Phosphatase 72 U/L 30-115 (test code = 6768-6) Total Bilirubin 1.0 mg/dL 0.1-1.2 Specimen (test code = 1975-2) slightl y hemolyzed Sodium (test code = 141 meq/L 204-305 9271-2) Potassium (test code 3.8 meq/L 3.6-5.5 Specime n = 2823-3) slightly hemolyzed Chloride (test code 104 meq/L 98-106 = 2075-0) CO2 (test code = 24 meq/L 20-29 2027-9) BUN (test code = 7 mg/dL 10-26 L 3094-0) Creatinine (test 0.81 mg/dL 0.50-1.20 Specimen code = 2160-0) slightly hemolyzed Glucose (test code = 92 mg/dL 70-110 2345-7) Calcium (test code = 9.4 mg/dL 8.5-10.5 67592-1) AST (test code = 21 U/L 5-40 Specimen 1920-8) slightly hemolyzed ALT (test code = 27 U/L 5-50 Specimen 1742-6) slightly hemolyzed EGFR (test code = 76 mL/min/1[place]73 [place] [address]-8) m NOT ACCURATE CREATININE CLEARANCE IN PREDICTING GLOMERULAR FILTRATION RATE . ESTIMATED GFR I S NOT APPLICABLE FOR DIALYSIS PATIENTS. CIRO (test code = Mold Cleaner ID - CIRO) JUSTINOperator ID - JUSTINOperator [...] THELMA Lab Interpretation Abnormal (test code = 40429-8) [facility] CenterCom[facility] [id number] 21:20:36 Test Item Value Reference Interpretation Comments Range Protein, Total (test 7.5 See_Comment Specime n code = 2885-2) slightly hemolyzed [Automated message] The system which generated this result transmitted reference range : 6.0 - 8.5 gm/dL . The reference range was not used to interpret this result as normal/abnormal . Albumin (test code = 4.1 g/dL 3.5-5.0 [place] n [address]-9) slightly hemolyzed Alkaline Phosphatase 72 U/L 30-115 (test code = 6768-6) Total Bilirubin 1.0 mg/dL 0.1-1.2 Specimen (test code = 1974-2) slightl y hemolyzed Sodium (test code = 141 meq/L 857-010 0907-2) Potassium (test code 3.8 meq/L 3.6-5.5 Specime n = 2823-3) slightly hemolyzed Chloride (test code 104 meq/L 98-106 = 5-0) CO2 (test code = 24 meq/L 20-29 2027-9) BUN (test code = 7 mg/dL 10-26 L 3094-0) Creatinine (test 0.81 mg/dL 0.50-1.20 Specimen code = 2160-0) slightly hemolyzed Glucose (test code = 92 mg/dL 70-110 2345-7) Calcium (test code = 9.4 mg/dL 8.5-10.5 70772-1) AST (test code = 21 U/L 5-40 Specimen 1920-8) slightly hemolyzed ALT (test code = 27 U/L 5-50 Specimen 1742-6) slightly hemolyzed EGFR (test code = 76 mL/min/1.73 [place] [address]-2) m NOT ACCURATE CREATININE CLEARANCE IN PREDICTING GLOMERULAR FILTRATION RATE . ESTIMATED GFR I S NOT APPLICABLE FOR DIALYSIS PATIENTS. CIRO (test code = Mold Cleaner ID - CIRO) JUSTINOperator ID - JUSTINOperator [...] THELMA Lab Interpretation Abnormal (test code = 59216-3) [facility] Center[facility]PRE[facility]ENSIVE METABOLIC [id number] 21:20:36 Test Item Value Reference Range Interpretation [...] S NOT APPLICABLE FOR DIALYSIS PATIEN TS. Mold Cleaner ID - JUSTINOperator ID - JUSTINOperator ID - JUSTINOperator ID - JUSTINOperator ID - JUSTINOperator ID - JUSTINOperator ID - JUSTINOperator ID - JUSTINOperator ID - JUSTINOperator ID - JUSTINOperator ID - JUSTINOperator ID - JUSTINOperator ID - JUSTINOperator ID - JUSTINOperator ID - JUSTINOperator ID - JUSTINOperator ID - JUSTINOperator ID - JUSTINOperator ID - JUSTINCBC with platelet count + automated [id number] 20:51:36 Test Item Value Reference Range Interpretation Comments WBC (test code = 6690-2) 12.0 See_Comment H [A utomated message] The system [employer] generated this result transmitted ref erence range: 4.0 - 10 .0 K/L. The refe rence range was not u sed to interpret this result as normal/abnor mal. RBC (test code = 789-8) 4.84 See_Comment [Au tomated message] The system [employer] generated this result transmitted ref erence range: 4.00 - 5 .00 M/L. The refe rence range was not u sed to interpret this result as normal/abnor mal. MCHC (test code = 786-4) 34.8 See_Comment [A utomated message] The system [employer] generated this result transmitted ref erence range: [...] H [Aut omated message] 777-3) The system [employer] generated this result transmitted ref erence range: 150 - 43 0 K/CU MM. The referen ce range was not u sed to interpret this result as normal/abnor mal. MPV (test code = 9.7 fL 6.0-11.5 41542-3) nRBC (test code = 413) 0 See_Comment [Aut omated message] The system [employer] generated this result transmitted ref erence range: [...] See_Comment [Aut omated message] 670) The system [employer] generated this result transmitted ref erence range: 1.80 - 8 .00 K/L. The refe rence range was not u sed to interpret this result as normal/abnor mal. # Lymphs (test code = 3.61 See_Comment [Auto mated message] 414) The system [employer] generated this result transmitted ref erence range: 1.48 - 4 .50 K/L. The refe rence range was not u sed to interpret this result as normal/abnor mal. # Monos (test code = 0.86 See_Comment [Autom ated message] 415) The system [employer] generated this result transmitted ref erence range: 0.00 - 1 .30 K/L. The refe rence range was not u sed to interpret this result as normal/abnor mal. # Eos (test code = 416) 0.41 See_Comment [Au tomated message] The system [employer] generated this result transmitted ref erence range: 0.00 - 0 .50 K/L. The refe rence range was not u sed to interpret this result as normal/abnor mal. # Baso (test code = 417) 0.10 See_Comment [A utomated message] The system [employer] generated this result transmitted ref erence range: 0.00 - 0 .20 K/L. The refe rence range was not u sed to interpret this result as normal/abnor mal. Immature 0 % 0-0 Granulocytes-Relative (test code = 2801) Lab Interpretation (test Abnormal code = 02662-1) [facility] with platelet count + automated [id number] 20:51:36 Test Item Value Reference Range Interpretation Comments WBC (test code = 6690-2) 12.0 See_Comment H [A utomated message] The system [employer] generated this result transmitted ref erence range: 4.0 - 10 .0 K/L. The refe rence range was not u sed to interpret this result as normal/abnor mal. RBC (test code = 789-8) 4.84 See_Comment [Au tomated message] The system [employer] generated this result transmitted ref erence range: 4.00 - 5 .00 M/L. The refe rence range was not u sed to interpret this result as normal/abnor mal. MCHC (test code = 786-4) 34.8 See_Comment [A utomated message] The system [employer] generated this result transmitted ref erence range: [...] H [Aut omated message] 777-3) The system [employer] generated this result transmitted ref erence range: 150 - 43 0 K/CU MM. The referen ce range was not u sed to interpret this result as normal/abnor mal. MPV (test code = 9.7 fL 6.0-11.5 38229-9) nRBC (test code = 413) 0 See_Comment [Aut omated message] The system [employer] generated this result transmitted ref erence range: [...] See_Comment [Aut omated message] 670) The system [employer] generated this result transmitted ref erence range: 1.80 - 8 .00 K/L. The refe rence range was not u sed to interpret this result as normal/abnor mal. # Lymphs (test code = 3.61 See_Comment [Auto mated message] 414) The system [employer] generated this result transmitted ref erence range: 1.48 - 4 .50 K/L. The refe rence range was not u sed to interpret this result as normal/abnor mal. # Monos (test code = 0.86 See_Comment [Autom ated message] 415) The system [employer] generated this result transmitted ref erence range: 0.00 - 1 .30 K/L. The refe rence range was not u sed to interpret this result as normal/abnor mal. # Eos (test code = 416) 0.41 See_Comment [Au tomated message] The system [employer] generated this result transmitted ref erence range: 0.00 - 0 .50 K/L. The refe rence range was not u sed to interpret this result as normal/abnor mal. # Baso (test code = 417) 0.10 See_Comment [A utomated message] The system [employer] generated this result transmitted ref erence range: 0.00 - 0 .20 K/L. The refe rence range was not u sed to interpret this result as normal/abnor mal. Immature 0 % 0-0 Granulocytes-Relative (test code = 2801) Lab Interpretation (test Abnormal code = 75099-8) [facility] W/PLT COUNT & AUTO [id number] 20:51:36 Test Item Value Reference Range Interpretation [...] 0-0 PERCENT (BEAKER) (test code = 2801) Continuous EEG [id number] 01:51:44CONTINUOUS VIDEO-EEG MONITORING REPORT - END OF STUDY Patient Name: Shanna BillsRN#: [id number] Date of : 1975 Initial Study Start date: 12/04/2020Initial Study Start Time: 08:49 Current Study Start Date: 12/05/2020urrent Study Start Time: 00:00 Current Study End Date: 12/05/2020urrent Study End Time: 13:58 Indication: 45 y.o. year old female referred for continuous video-EEG to evaluate for seizures. Technical SummaryTechnique:Modified international 10/20 system of EEG electrode placement was used. Visual Analysis of EEG-Video Monitoring:This electroencephalogram was recorded simultaneously with video throughout the monitoring. The EEG was visually inspected and analyzed for characterization of the background activity in all awake and sleep states, abnormal focal and generalized features, and intraictal and ictal epileptiform activity. Electrical seizure activity was correlated with the patients clinical activity recorded on video and video captured clinical events were correlated with simultaneously recorded EEG activity. Computer Analysis of EEG Waveforms:The EEG underwent continuous computerized digital spectral analysis, which consisted of real time detection of electrical events that could be considered epileptiform. All electrographic events identified by the detection program were visually inspected in order to assess the waveform characteristics and significanceof these electrographic events. All intraictal and ictal epileptiform events are described further below with additional details of the visual analysis of the EEG. Events detected by computer analysis that were not determined by visual analysis to be epileptiform were considered to be myogenic, biologic, mechanical, or electrical artifact in origin. Only computer detected events that have been verified by visual inspection to be interictal or ictal epileptiform discharges are reported below and considered in the final report of this monitoring study. Findings: Background: The waking background at rest is continuous, composed of an admixture of largely alpha and beta frequencies, with the expected anterior to posterior voltage and frequency gradient with intermixed faster frequencies anteriorly and a symmetric and well-formed posterior dominant alpha rhythm of 9 hertz, that is reactive to eye opening. With drowsiness, there is the expected attenuation of the posterior dominant rhythm. During sleep, there is the emergence of normal sleep architecture including symmetric and well-defined sleep spindles and K complexes noted. Hyperventilation: was not performedPhotic stimulation: was not performed Interictal: There are no epileptiform discharges or seizures captured. Impression:This is a normal Video-EEG study. There are no lateralizing or focal features, epileptiform discharges or seizures captured. Onelia Hair MD ICD-10 Code: G847Ttnzmhlpb HospitalContinuous EEG [id number] 12:59:42 CONTINUOUS VIDEO-EEG MONITORING REPORT [id number] Date of : 1975 Initial Study Start date: 12/04/2020Initial Study Start Time: 08:49 Current Study Start Date: 12/04/2020urrent Study Start Time: 08:49 Current Study End Date: 12/04/2020urre nt Study End Time: 23:59 Indication: 45 y.o. year old female referred for continuous video-EEG to evaluate for seizures. Technical SummaryTechnique:Modified international 10/20 system of EEG electrode placement was used. Visual Analysis of EEG-Video Monitoring:This electroencephalogram was recorded simultaneously with video throughout the monitoring. The EEG was visually inspected and analyzed for characterization of the background activity in all awake and sleep states, abnormal focal and generalized features, and intraictal and ictal epileptiform activity. Electrical seizure activity was correlated with the patients clinical activity recorded on video and video captured clinical events were correlated with simultaneously recorded EEG activity. Computer Analysis of EEG Waveforms:The EEG underwent continuous computerized digital spectral analysis, which consisted of real time detection of electrical events that could be considered epileptiform. All electrographic events identified by the detection program were visually inspected in order to assess the waveform characteristics and significance of these electrographic events. All intraictal and ictal epileptiform events are described furtherbelow with additional details of the visual analysis of the EEG. Events detected by computer analysis that were not determined by visual analysis to be epileptiform were considered to be myogenic, biologic, mechanical, or electrical artifact in origin. Only computer detected events that have been verified by visual inspection to be interictal or ictal epileptiform discharges are reported below and considered in the final report of this monitoring study. Findings: Background: The waking background atrest is continuous, composed of an admixture of largely alpha and beta frequencies, with the expected anterior to posterior voltage and frequency gradient with intermixed faster frequencies anteriorly and a symmetric and well-formed posterior dominant alpha rhythm of 9 hertz, that is reactive to eye opening. With drowsiness, there is the expected attenuation of the posterior dominant rhythm. Duringsleep, there is the emergence of normal sleep architecture including symmetric and well-defined sleep spindles and K complexes noted. Hyperventilation: was not performedPhotic stimulation: was not performed Interictal: There are no epileptiform discharges or seizures captured. Impression:This is a normal Video-EEG study. There are no lateralizing or focal features, epileptiform discharges or seizures captured. Onelia Hair MD ICD-10 Code: U832Enzdspxmi [facility] 12 [id number] 05:31:10 Test Item Value Reference Range Interpretation Comments Ventricular rate (test code = 253) Atrial rate (test code = 255) ME interval (test code = 266) QRSD interval [...] BY 62 BPM-Electronically Signed By Kimberli MCDUFFIE, [facility] ([id number]) on 12/05/2020 12:31:09 AM [facility] 12 [id number] 05:31:10 Test Item Value Reference Range Interpretation Comments Ventricular rate (test code = 253) Atrial rate (test code = 255) ME interval (test code = 266) QRSD interval [...] 17-SEP-2020 04:27,-Vent. rate has increased BY 62 BPM- [facility] 12 [id number] 05:31:10 Test Item Value Reference Range Interpretation Comments Ventricular rate (test code = 253) Atrial rate (test code = 255) ME interval (test code = 266) QRSD interval [...] 17-SEP-2020 04:27,-Vent. rate has increased BY 62 BPM- [facility] (routine) - Baseline [id number] 01:47:11VIDEO-EEG RECORDING AWAKE & ASLEEP - Baseline for bedside EEG Date of Service:12/04/20 PatientName: Shanna Nur of : 1975 Attending MD: Onelia Hair MD Technique: Recordings were obtained using a standard international 10-20 electrode placement supplemented with a single electrocardiogram chest electrode. The recordings were obtained using a reference electrode and reformatted digitally into sequential bipolar and referential montages for review. Indication: 45 y.o. year old female referred for video-EEG to evaluate for seizures. Findings: Background: The waking background at rest is continuous, composed of an admixture of largely alpha and beta frequencies, with the expected anterior to posterior voltage and frequency gradient with intermixed faster frequencies anteriorly and a symmetric and well- formed posterior dominant alpha rhythm of 9 hertz, that is reactive to eye opening. With drowsiness, there is the expected attenuation of the posterior dominant rhythm. During sleep, there is the emergence of normal sleep architecture including symmetricand well-defined sleep spindles and K complexes noted. Hyperventilation: was not performedPhotic stimulation: was not performed Interictal: There are no epileptiform discharges or seizures captured. Im pression:This is a normal Video-EEG study. There are no lateralizing or focal features, epileptiformdischarges or seizures captured. Onelia Hair MD ICD-10 Code: N670Omwjvafzk HospitalCT Head Wo [id number] 02:53:14EXAMINATION: CT HEAD WO CONTRAST CLINICAL HISTORY: Mental status change unknown cause COMPARISON: CT head 09/10/2020 TECHNIQUE: Axial CT images of the head obtained without intravenous contrast. Multiplanar reformatted images were also generated. FINDINGS: No evidence of acute intracranial hemorrhage, mass, mass effect, midline shift, or acute infarct. Ventricles and sulci are normal in appearance for age. Basal cisterns are clear. Calvarium is intact. Orbits are normal in appearance. No significant sinus inflammatory changes. Mastoid air cells are clear. IMPRESSION: 1. No CT evidence of acute intracranial abnormality. [facility]-[id number] Interface, Radiology Results - 12/03/2020 9:56 PM CDT EXAMINATION: CT HEAD WO CONTRASTCLINICAL HISTORY: Mental status change unknown causeCOMPARISON: CT head 09/10/2020TECHNIQUE: AxialCT images of the head obtained without intravenous contrast. Multiplanar reformatted images were also generated.FINDINGS:No evidence of acute intracranial hemorrhage, mass, mass effect, midline shift, or acute infarct. Ventricles and sulci are normal in appearance for age. Basal cisterns are clear. Calvarium is intact.Orbits are normal in appearance. No significant sinus inflammatory changes. Mastoid air cells are clear. IMPRESSION:1. No CT evidence of acute intracranial abnormality.[facility]W-7ZW9104HYMQstqybcbnWabash Valley HospitalARS-CoV-2 (COVID-19) RNA [Presence] in Respiratory specimen by SOREN with probe [id number] 02:03:42 Test Item Value Reference Range Interpretation Comments SARS-CoV-2 (COVID-19) RNA Not detected Not-Detected [Presence] in Respiratory specimen by SOREN with probe detection (test code = 87054-3) Whether patient is employed in a healthcare setting (test code = 64041-8) Whether the patient has symptoms related to condition of interest (test code = 85997-4) Patient was hospitalized because of this condition (test code = 49950-9) Whether the patient was admitted to intensive care unit (ICU) for condition of interest (test code = 06233-6) Whether patient resides in a congregate care setting (test code = 79948-5) XR Chest 1 Vw [id number] 23:58:22EXAMINATION: XR CHEST 1 VW PORTABLE CLINICAL HISTORY: chest pain COMPARISON: 09/10/2020 IMPRESSION: 1.Heart size and central vasculature are normal. 2.The lungs are clear. There is no consolidation or effusion. 3.The bones are intact. [id number] Interface, Radiology Results Incoming - 12/03/2020 7:01 PM CDT EXAMINATION: XR CHEST1 VW PORTABLECLINICAL HISTORY: chest painCOMPARISON: 09/10/2020IMPRESSION:1.Heart size and central vasculature are normal.2.The lungs are clear. 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 Critical care was time spent personally by me on the following activities: Blood draw for specimens, development of treatment plan with patient or surrogate, discussions with consultants, discussions with primary provider, evaluation of patient's response to treatment, examination of patient, ordering and performing treatments and interventions, ordering and review of laboratory studies, ordering and review of radiographic studies, pulse oximetry, re-evaluation of patient's condition and review of old charts Moo 'yes' if you are taking over critical care for this patient from another provider.: no [facility] Preliminary Interpretation - Not an [id number] 21:55:13Bladimir Brumfield MD 12/04/2020 3:12 PMEG ED Preliminary Interpretation - Not an OrderPerformedby: Bladimir Brumfield MDAuthorized by: Bladimir Brumfield MD ECG reviewed by ED Physician in the absence of a applications systems engineer: yes Rate: ECG rate: 119Rhythm: Rhythm: sinus tachycardia Ectopy: Ectopy: none QRS: QRS axis: Normal QRS intervals: NormalConduction: Conduction: normal ST segments: ST segments: NormalT waves: T waves: normalCH[facility] [id number] 01:10:19 Test Item Value Reference Range Interpretation Comments Urine culture (test SEE COMMENT Bacteriu mario screen code = 2416257) negative. [facility] [id number] 01:10:19 Test Item Value Reference Range Interpretation Comments Urine culture (test SEE COMMENT Bacteriu mario screen code = 1451960) negative. [facility]2021-04-08 01:10:19 Test Item Value Reference Range Interpretation Comments Urine culture (test SEE COMMENT Bacteriu mario screen code = 7624115) negative. [facility][U] XRAY HAND MIN 3 VWS RIGHT [id number] 15:17:00Images acquired, not reported on this accession number.[facility]XR Hand 3+ Vw Right 2020-11-03 04:37:16EXAMINATION: XR HAND 3 VW RIGHT INDICATION: dog bite COMPARISON: None IMPRESSION: 3 views of the right hand were obtained.No visible acute fracture or dislocation.No visible radiodense foreign material. [facility] Interface, Radiology Results Incoming - 11/02/2020 11:40 PM CDT EXAMINATION: XR HAND 3 VW RIGHTINDICATION: dog biteCOMPARISON: NoneIMPRESSION:3 views of the right hand were obtained.No visible acute fracture or dislocation.No visible radiodense foreign material.[facility] SYSTEMMPHYMATRestorationism HospitalEE (routine) 2020-09-17 16:59:35Date of Study Completion: September 17ate of Interpretation: September 17, 2020Ordering Provider:Dr. Whit Alston Inpatient Electroencephalogram Report History: 44 year old woman being treated after a seizure like episode. Please evaluate the underlying cerebral activity and rule out interictal epileptiform discharges. Technical Description: The recording was started at 10:23 AM and ended at 10:43AM on 09/17/2020. It was a digitally recorded multi-montage EEG with 21 electrodes placed according tothe International 10/20 system. An EKG strip was recorded continuously. True eye leads were not employed. True temporal leads were not employed. EEG Description:When maximally aroused, the awake background was characterized by a well-developed 9 to 10 Hz, 20 to 40 microvolts symmetric posterior rhythm that attenuated appropriately to eye opening. The movements noted on this tracing by the exhibit technician did not have an epileptic correlate. No definitive interictal epileptiform discharges or electrographic seizures were appreciated. Sleep Recording:Stage II sleep was not recorded. Activation Procedures :Hyperventilation was not attempted. Photic stimulation utilizing flash frequencies ranging from 5 to 30 Hz did not elicit a driving response. EEG Interpretation: This was a normal awake and drowsy EEG.1. No paroxysmal discharges were observed. Clinical Correlation:1. The absence of interictal epileptiform discharges does not rule out an underlying tendency for unprovoked seizures (epilepsy). Note, however, that an EEG recording preceded by sleep deprivation or a prolonged recording during sleep would increase the statistical likelihood of detecting interictal discharges, and should be considered if pursuing a diagnosis of epilepsy.[facility] NykgqtslORDS-EyK-0 (COVID-19) RNA [Presence] in Respiratory specimen by SOREN with probe [id number] 00:31:49 Test Item Value Reference Range Interpretation Comments SARS-CoV-2 (COVID-19) RNA Not detected Not-Detected [Presence] in Respiratory specimen by SOREN with probe detection (test code = 18533-4) EEG (routine)2020-09-11 20:16:18Date of Service: September 11ate of EEG interpretation: September 11, 2020. Routine Inpatient Electroencephalogram Report History: 44 y.o. female with possible seizure evaluated for underlying cerebral activity and epileptic seizures. Technical Description: The record consists of a greater than 20minute digitally recorded multi-montage EEG with 21 electrodes placed according to the Pxasggipqfajf59/20 system. An EKG strip was recorded continuously. True eye leads were not employed. True temporal leads were not employed. EEG Description:When maximally aroused, the awake background was characterized by a well-developed 8-9 Hz, 20 to 40 microvolts symmetric posterior rhythm that attenuated appropriately to eye opening. The patient becomes drowsy over the course of the recording as evidencedby the dropout of the posterior rhythm and the emergence of a diffuse 2 to 7 Hz, 40 to 60 microvoltsirregular slow activity. Sleep Recording:Stage II sleep was sustained for at least 3 minutes and was characterized by symmetric sleep spindles, vertex waves, and K-complexes. Symmetric positive occipital sharp transients of sleep were also observed. Slow-wave sleep and REM were not documented. Activ ation Procedures:Hyperventilation was not performed. Photic stimulation utilizing flash frequencies ranging from 5 to 30 Hz did not elicit any paroxysmal discharges. EEG Interpretation: This was a normal awake and asleep EEG.1. No paroxysmal discharges were observed. Clinical Correlation:1. The absence of interictal epileptiform discharges does not rule out an underlying tendency for unprovoked seizures (epilepsy). Note, however, that an EEG recording preceded by sleep deprivation or a prolonged recording during sleep would increase the statistical likelihood of detecting interictal discharges, an d should be considered if pursuing a diagnosis of epilepsy.[facility] SARS-CoV-2 (COVID-19) RNA [Presence] in Respiratory specimen by SOREN with probe [id number] 07:15:55 Test Item Value Reference Range Interpretation Comments SARS-CoV-2 (COVID-19) RNA Not detected Not-Detected [Presence] in Respiratory specimen by SOREN with probe detection (test code = 37264-7) CT Abdomen Pelvis Wo [id number] 05:45:01EXAMINATION: CT ABDOMEN PELVIS WO CONTRAST HISTORY: diarrhea abdominal pain TECHNIQUE: CT examination of the abdomen and pelvis was performed without intravenous contrast. Sagittal and coronal computerized reformatted images were generated. CT imaging was performed with iterative reconstruction techniques and/or automated exposure control to reduce radiation dose. Please note the lack of intravenous contrast reduces sensitivity for detecting solid organ disease. COMPARISON: 07/15/2020. FINDINGS: Lower Thorax: The lung bases are free of acute disease. Liver: Normal size and contour. No suspicious lesion. Gallbladder/Biliary: Gallbladder unremarkable cholecystectomy. No intra- or extrahepatic bile duct dilatation. Spleen: Unremarkable. Pancreas: Unremarkable. Adrenal: Unremarkable. Kidneys: Symmetric. No hydronephrosis. No discrete mass. No renal or ureteral stone. Urogenital: Urinary bladder unremarkable. Uterus contains an IUD in approximately expected location. Multiple cervical mucus retention (nabothian) cysts. A 2.4 cm left adnexal cyst. Vascular: Greater abdominal vasculature unremarkable. No abdominal aortic aneurysm. Bowel: Low-density thickened appearance throughout colon. No significant inflammatory stranding surrounding the bowel. Appendix not visualized. No bowel obstruction. Lymphatic/Peritoneal: No abdominal lymphadenopathy. Musculoskeletal: No acute or aggressive-appearing osseous lesion. IMPRESSION: 1.Unchanged nonspecific slightly thickened appearance throughout the colon, a few areas of small bowel. This is nonspecific and may relate to low-level inflammation. No highgrade enterocolitis. No bowel obstruction. [id number] Interface, Radiology Results Incoming - 09/10/2020 11:48 PM CST EXAMINATION: CT ABDOMEN PELVIS WO CONTRASTHISTORY: diarrhea abdominal painTECHNIQUE: CT examination of the abdomen and pelvis was performed without intravenous contrast. Sagittal and coronal computerized reformatted images were generated. CT imaging was performed with iterative reconstruction techniques and/or automated exposure control to reduce radiation dose. Please note the lack of intravenous contrast reduces sensitivity for detecting solid organ disease.COMPARISON: 07/15/2020.FINDINGS:Lower Thorax: The lung bases are free of acute disease.Liver: Normal size and contour. No suspicious lesion.Gallbladder/Biliary: Gallbladder unremarkable cholecystectomy. No intra- or extrahepatic bile duct dilatation.Spleen: Unremarkable.Pancreas: Unremarkable.Adrenal: Unremarkable.Kidneys: Symmetric. No hydronephrosis. No discrete mass. No renal or ureteral stone.Urogenital: Urinary bladder unremarkable. Uterus contains an IUD in approximately expected location. Multiple cervical mucus retention (nabothian) cysts. A 2.4 cm left adnexal cyst.Vascular: Greater abdominal vasculature unremarkable. No abdominal aortic aneurysm.Bowel: Low-density thickened appearance throughout colon. No significant inflammatory stranding surrounding the bowel. Appendix not visualized. No bowel obstruction.Lymphatic/Peritoneal: No abdominal lym phadenopathy. Musculoskeletal: No acute or aggressive-appearing osseous lesion. IMPRESSION:1.Unchanged nonspecific slightly thickened appearance throughout the colon, a few areas of small bowel. This is nonspecific and may relate to low- level inflammation. No high grade enterocolitis. No bowel obstru ction.[id number] RNA [Presence] in Respiratory specimen by SOREN with probe [id number] 05:23:42 Test Item Value Reference Range Interpretation Comments SARS-CoV-2 (COVID-19) RNA Not detected Not-Detected [Presence] in Respiratory specimen by SOREN with probe detection (test code = 61324-9) Transthoracic Echocardiogram Complete, (w Contrast, Strain and 3D if needed) 2020-05-11 04:52:19 Test Item Value Reference Range Interpretation Comments Velocity Ratio (V1/V2) 0.85 m/s (test code = 4689) IVS,d (test code = 1.00 cm 4757889160) EF (test code = 52.31 % 6320388935) Ascending aorta (test 2.67 cm code = 1258221794) LVPWD,d (test code = 1.00 cm 5802049321) AoV Mean PG (test code mmHg = 2172161239) AV LVOT peak gradient mmHg (test code = 6733926548) MV mean gradient (test mmHg code = 4920371323) MV valve area p 1/2 3.31 cm2 method (test code = 2685762518) PV Pk Grad (test code = mmHg 0051600027) E/A ratio (test code = 0760799965) E wave decelartion time msec (test code = 2200917163) LVOT Diam,S (test code 1.98 cm = 8355109216) LVOT area (test code = 3.08 cm2 9355118566) LVOT Vmax (test code = 0.96 m/s 4640406233) LVOT VTI (test code = 0.21 m 2237724608) RVOT Vmax (test code = 0.58 m/s 9620331637) AoV Peak PG (test code mmHg = 7384946268) MV Peak E Adriana (test 0.94 m/s code = 3213244387) MV stenosis pressure 66.39 ms 1/2 time (test code = 0574802587) MV Peak A Adriana (test 0.74 m/s code = 5792800978) Ao Root Diameter (test 2.99 cm code = 9249425392) AoV Area, Vmax (test 2.60 cm2 code = 7782801260) AoV Area, VTI (test 2.95 cm2 code = 9144425791) AoV Vmax (test code = 1.13 m/s 0090099919) IVS/LVPW,2D (test code = 7970130048) Left Atrium Dimension 3.10 cm Anterior (test code = 2755357768) LV,d (test code = 4.15 cm 1539039323) LV,s (test code = 3.05 cm 7486236430) PV VMAX (test code = 0.78 m/s 5279171266) TR Vpeak (test code = 1.85 mm/s 1348041333) MV E A ratio (test code = 7466299331) TR pk grad (test code = mmHg 4865029067) MR peak grad (test code mmHg = 4880048304) Ao Root Diameter (test 2.99 cm code = 4059165950) LV SYS VOL (test code = 36.41 ml 2884292836) LV RIOS VOL (test code 76.34 ml = 8884892546) LV SV Teich 2D (test 39.93 ml code = 1923180166) LV Vol s Teich PSAX 36.41 ml (test code = 8876935290) MV Vmax (test code = 0.89 m 2850946797) MV VTI Tips (test code 0.22 m = 6722863991) RVOT pk grad (test code mmHg = 5390988735) AoV Vmn (test code = 3849111218) LV FS Cube 2D (test code = 0116565178) LV FS Teich 2D (test code = 7192429730) AoV VTI (test code = 0.22 m 8427063185) LA Area d A4C (test 12.41 cm2 code = 9932229473) LV EF,2D (test code = 60.32 % 2080019018) MR Vmax (test code = 4.15 m/s 4680978107) MV AE ratio (test code = 7307805315) LVOT Vmn (test code = 5558803032) Aov area Vmn (test code 2.47 cm2 = 0206335716) LA Vol d MOD A4C (test 27.63 ml code = 2188248824) LVOT mean grad (test mmHg code = 5857267830) MAX Pred HR (test code = 6700398447) 85 of MPHR (test code = 8405407922) Calc MPHR (test code = bpm 4064854930) LV SV Cube 2D (test 43.08 ml code = 9360991194) LV vol d cube 2D (test 71.42 ml code = 2466844679) LV vol s cube 2D (test 28.34 ml code = 3817703552) MV Decel slope (test 4.12 m/s2 code = 3752241761) Pred Exer Dur R1 (test code = 8952779586) Pred METS R1 (test code = 5750820135) CIRO (test code = CIRO) Left Ventricle: The left ventricular chamber size is normal. Left ventricular systolic function is normal. Left Ventricular ejection fraction is 60 - 65%. Normal left ventricular wall thickness and regional wall motion. Right Ventricle: Normal right ventricular size, wall thickness and global function. Left Atrium: LA size is normal. Right Atrium: The right atrium is normal. Mitral Valve: The mitral valve appears normal. Trace mitral valve regurgitation. No evidence of mitral valve stenosis. Tricuspid Valve: The tricuspid valve appears normal. Trace tricuspid valve regurgitation. No evidence of tricuspid valve stenosis. Aortic Valve: The aortic valve appears normal, trileaflet and to open well. No evidence of significant aortic regurgitation. No evidence of aortic valve stenosis. [facility] duplex venous upper [id number] 06:14:50 EXAMINATION: US DUPLEX VENOUS UPPER EXTREMITY RIGHT CLINICAL HISTORY: Arm swelling or pain DVT suspected COMPARISON: None. TECHNIQUE: Grayscale, color Doppler, and spectral waveform analysis of the right upper extremity deep venous system was performed. Contralateral left subclavian vein was alsoexamined. FINDINGS: Intraluminal echoes within a superficial forearm vein at prior catheterization site which demonstrates incomplete compressibility and flow defect on color Doppler examination, representing thrombosis. The right internal jugular vein demonstrates normal flow and compressibility. Theright subclavian, axillary, brachial, basilic, cephalic, and forearm veins reveal no evidence of thrombosis. The veins demonstrate normal Doppler flow and normal compressibility. Contralateral left subclavian vein is patent. IMPRESSION: 1. Superficial forearm vein thrombosis. 2. No sonographic evidence of deep venous thrombosis within the visualized veins of the right upper extremity. [facility]-[id number] Interface, Radiology Results 05/08/2020 1:17 AM CDT EXAMINATION: US DUPLEX VENOUS UPPER EXTREMITY RIGHTCLINICAL HISTORY: Armswelling or pain DVT suspectedCOMPARISON: None.TECHNIQUE: Grayscale, color Doppler, and spectral w aveform analysis of the right upper extremity deep venous system was performed. Contralateral left subclavian vein was also examined.FINDINGS:Intraluminal echoes within a superficial forearm vein at prior catheterization site which demonstrates incomplete compressibility and flow defect on color Doppler examination, representing thrombosis.The right internal jugular vein demonstrates normal flow and compressibility. The right subclavian, axillary, brachial, basilic, cephalic, and forearm veins reveal no evidence of thrombosis. The veins demonstrate normal Doppler flow and normal compressibility.Cont ralateral left subclavian vein is patent.IMPRESSION:1. Superficial forearm vein thrombosis.2. No sonographic evidence of deep venous thrombosis within the visualized veins of the right upper extremity.[facility]-[id number] [facility] EEG (routine)2020-05-07 22:01:23Date of Service: May 07, 2020.Date of EEG interpretation: May 07, 2020. Routine Inpatient Electroencephalogram Report History: 44 y.o. female with a history of altered mental status evaluated for underlying cerebral activity and epileptic seizures. Technical Description: The record consists of a greater than 41 minute digitally recorded multi- montage EEG with 21 electrodes placed according to the International 10/20 system. An EKG strip was recorded continuously. True eye leads were not employed. True temporal leads were not employed. EEG Description:When maximally aroused, the awake background was characterized by a well-developed 9-10 Hz, 20 to 40 microvolts symmetric posterior rhythm that attenuated appropriately to eye opening. The patient becomes drowsy over the course of the recording as evidenced by the dropout of the posterior rhythm and the emergence of a diffuse 2 to 7Hz, 40 to 60 microvolts irregular slow activity. Sleep Recording:Stage II sleep was sustained for at least 3 minutes and was characterized by symmetric sleep spindles, vertex waves, and K-complexes. Symmetric positive occipital sharp transients of sleep were also observed. Slow-wave sleep and REM were not documented. Activation Procedures:Hyperventilation was not performed. Photic stimulation utilizing flash frequencies ranging from 5 to 30 Hz did not elicit any paroxysmal discharges. EEG Interpretation: This was a normal awake and asleep EEG.1. No paroxysmal discharges were observed. Clinical Correlation:1. The absence of interictal epileptiform discharges does not rule out an underlying tendency for unprovoked seizures (epilepsy). Note, however, that an EEG recording preceded by sleep deprivation or a prolonged recording during sleep would increase the statistical likelihood of detecting interictal discharges, and should be considered if pursuing a diagnosis of epilepsy. [facility] Brain W Wo [id number] 03:27:20EXAMINATION: MRI BRAIN W WO CONTRAST CLINICAL HISTORY: Multiple sclerosis new neurological event, facial numbness vertigo speech abnormalities COMPARISON: Brain MR August 03, 2018. Head CT same day. Brain MR from November 2015. TECHNIQUE: Multiplanar and multisequence MRI imaging of the brain was obtained with and without contrast. FINDINGS: No evidence of acute intracranial hemorrhage, mass, masseffect, acute infarct or midline shift. Ventricles and sulci are normal in appearance for patient'shirley. No abnormal intracranial enhancement. No abnormal susceptibility. Basal cisterns are clear. Major intracranial flow voids are maintained. Midline structures are unremarkable. Orbits are normal in appearance. Visualized paranasal sinuses and mastoid air cells are clear. IMPRESSION: 1. No acute intracranial abnormality.2. No identifiable demyelinating lesions or suspicious pericallosal lesions with a perivenular morphology. [id number] Interface, Radiology Results - 05/06/2020 10:30PM CDT EXAMINATION: MRI BRAIN W WO CONTRASTCLINICAL HISTORY: Multiple sclerosis new neurological event, facial numbness vertigo speech abno rmalitiesCOMPARISON: Brain MR August 03, 2018. Head CT same day. Brain MR from November 2015.TECHNIQUE: Multiplanar and multisequence MRI imaging of the brain was obtained with and without contrast.FINDINGS:No evidence of acute intracranial hemorrhage, mass, mass effect, acute infarct or midline shift. Ventricles and sulci are normal in appearance for patient's age. No abnormal intracranial enhancement. No abnormal susceptibility. Basal cisterns are clear. Major intracranial flow voids are maintained. Midline structures are unremarkable. Orbits are normal in appearance. Visualized paranasal sinusesand mastoid air cells are clear.IMPRESSION:1. No acute intracranial abnormality.2. No identifiable demyelinating lesions or suspicious pericallosal lesions with a perivenular morphology.[id number] RNA [Presence] in Respiratory specimen by SOREN with probe [id number] 12:31:16 Test Item Value Reference Range Interpretation Comments SARS-CoV-2 (COVID-19) RNA Not detected Not-Detected [Presence] in Respiratory specimen by SOREN with probe detection (test code = 25916-5) SARS-COV2/RT-PCR ([facility])2020-02-22 21:37:00 Test Item Value Reference Range Interpretation Comments SARS-COV2/RT-PCR (test code = Positive Not Detected, Negative A A [id number]) SARS-COV-2 PERFORMING LAB CPL (test code = 0946799) CT, CHEST, WITHOUT [id number] 00:54:00Reason for exam:->cough, ?covidIs the patient ?->NoWhat [...] cause a similar imaging pattern. Signed: Aneudy Asencio MDReport Verified Date/Time: 02/21/2020 00:54:38 PREGNANCY SCREEN, [id number] 00:28:00 Test Item Value Reference Range Interpretation Comments TEST URINE (BEAKER) (test Negative code = 583) CBC W/PLT COUNT & AUTO [id number] 22:46:00 Test Item Value Reference Range Interpretation [...] (BEAKER) (test code = 2801) LACTIC ACID, [id number] 22:30:00 Test Item Value Reference Range Interpretation Comments LACTATE BLOOD VENOUS 1.38 mmol/L 0.50-2.00 Specime n slightly (2) (BEAKER) (test hemolyzed code = 3132) Mold Cleaner ID - JUSTINBASIC METABOLIC [id number] 22:10:00 Test Item Value Reference Range Interpretation [...] S NOT APPLICABLE FOR DIALYSIS PATIEN TS. Mold Cleaner ID - [id number] 22:09:00 Test Item Value Reference Range Interpretation [...] failure, acidosis, acute neurological disease, and persistent tachyarrhythmia.Mold Cleaner ID - [id number], CHEST, 1 VIEW, NON [id number] 20:58:00Reason for exam:->coughIs the patient ?- >NoShould this be performed at the bedside?->YesFINAL REPORT RAD, CHEST, 1 VIEW, NON DEPT CLINICAL HISTORY: cough TECHNIQUE:Single view of the chest. COMPARISON: October 12, 2019 IMPRESSION: There are no focal infiltrates or effusions. No pneumothorax. The cardiomediastinal silhouette is magnified by technique. The osseous structures appear intact. Signed: Aneudy Asencio MDReport Verified Date/Time: 02/20/2020 20:58:56 SARS-COV2/RT-PCR ([facility])2020-02-06 03:25:00 Test Item Value Reference Range Interpretation Comments SARS-COV2/RT-PCR (test code = Positive Not Detected, Negative A A [id number]) SARS-COV-2 PERFORMING LAB CPL (test code = 7909539) URINALYSIS W/ [id number] 08:24:00 Test Item Value Reference Range Interpretation [...] 1663) SOURCE(BEAKER) (test code = 2795) SCREEN, [id number] 08:00:00 Test Item Value Reference Range Interpretation Comments TEST URINE (BEAKER) (test Negative code = 583) RAD, ABDOMEN/KUB 1 VIEW [id number] 07:21:00Reason for exam:->FEVERReason for exam:->DIARRHEAReason for exam:->EMESISFINAL REPORT RAD, ABDOMEN/KUB 1 VIEW AP CLINICAL INDICATION: FEVERDIARRHEAEMESIS COMPARISON: None TECHNIQUE: Single, frontal radiograph of the abdomen. FINDINGS: The bowel gas pattern is nonspecific, but nonobstructive. IUD is present. The regional skeleton is intact. IMPRESSION: Nonspecific, nonobstructive bowel gas pattern. Signed: Ling Jin MDReport Verified Date/Time: 02/04/2020 07:21:42 Reading Location: [facility] Radiology Reading Room COMPREHENSIVE METABOLIC [id number] 07:14:00 Test Item Value Reference Range Interpretation [...] S NOT APPLICABLE FOR DIALYSIS PATIEN TS. Mold Cleaner ID - [id number] 06:59:00 Test Item Value Reference Range Interpretation Comments LIPASE (BEAKER) (test code = 749) 9 U/L 6-51 Mold Cleaner ID - [id number] W/PLT COUNT & AUTO [id number] 06:41:00 Test Item Value Reference Range Interpretation [...] (test code = 2801) RAPID INFLUENZA A&B [id number] 19:09:00 Test Item Value Reference Range Interpretation Comments RAPID INFLUENZA A AG (BEAKER) Negative Negative, Inconclusive (test code = 1622) RAPID INFLUENZA B AG (BEAKER) Negative Negative, Inconclusive (test code = 1623) TROPONIN [id number] 18:51:00 Test Item Value Reference Range Interpretation [...] failure, acidosis, acute neurological disease, and persistent tachyarrhythmia.Mold Cleaner ID - JUSTINPREGNANCY SCREEN, [id number] 18:49:00 Test Item Value Reference Range Interpretation Comments TEST URINE (BEAKER) (test Negative code = 583) URINALYSIS W/ [id number] 18:49:00 Test Item Value Reference Range Interpretation [...] = 1663) SOURCE(BEAKER) (test code = 2795) BASIC METABOLIC [id number] 18:44:00 Test Item Value Reference Range Interpretation [...] S NOT APPLICABLE FOR DIALYSIS PATIEN TS. Mold Cleaner ID - GORDON, CHEST, 1 VIEW, NON [id number] 18:41:00Reason for exam:->COUGHReason for exam:->SHORTNESS OF BREATHReason [...] IMPRESSION: No acute cardiopulmonary abnormality. Signed: Vandana Edwards Verified Date/Time: 10/12/2019 18:41:43 CBC W/PLT COUNT & AUTO [id number] 18:29:00 Test Item Value Reference Range Interpretation [...] PERCENT (BEAKER) (test code = 2801) CT, [id number] 16:47:00Reason for exam:->FEVERReason for exam:->LEG PAINIs the [...] MDReport Verified Date/Time: 02/15/2019 16:47:32 Reading Location: [address] Transitional Reading Room URINALYSIS W/ [id number] 15:41:00 Test Item Value Reference Range Interpretation [...] code = 1663) SOURCE(BEAKER) (test code = 6665) SCREEN, [id number] 15:29:00 Test Item Value Reference Range Interpretation Comments TEST URINE (BEAKER) (test Negative code = 583) COMPREHENSIVE METABOLIC [id number] 15:26:00 Test Item Value Reference Range Interpretation [...] S NOT APPLICABLE FOR DIALYSIS PATIEN TS. [id number] 15:26:00 Test Item Value Reference Range Interpretation Comments LIPASE (BEAKER) (test code = 749) 20 U/L 6-51 [id number] 15:17:00 Test Item Value Reference Range Interpretation Comments AMYLASE (BEAKER) (test 42 U/L 30-110 Speci men slightly code = 349) hemolyzed CBC W/PLT COUNT & AUTO [id number] 15:03:00 Test Item Value Reference Range Interpretation [...] = 2801) RAD, KNEE, COMPLETE (4 VIEWS), [id number] 23:20:00Reason for exam:->MOTOR VEHICLE CRASHReason for exam:->HIP [...] changes in the left knee. Signed: Priti Friedman MDReport Verified Date/Time: 11/19/2018 23:20:49 Reading Location: [facility] C013Y CT Body Reading Room RAD, KNEE, COMPLETE (4 VIEWS), [id number] 23:20:00Reason for exam:->MOTOR VEHICLE CRASHReason for exam:->HIP [...] changes in the left knee. Signed: Priti Friedmaneport Verified Date/Time: 11/19/2018 23:20:49 Reading Location: [place] [id number] CT Body Reading Room RAD, HIP, 2 VIEWS, [id number] 23:06:00Reason for exam:->MOTOR VEHICLE CRASHReason for exam:->HIP PAINReason for exam:->ARM INJURYReason for exam:->SHOULDER INJURYFINAL REPORT Right hip series, 2 views Clinical Indication: Right Hip Pain Impression: No evidence of acute fracture or traumatic malalignment. Note: If occult injury is suspected, consider CT. Signed: Brian Garibay Verified Date/Time: 11/19/2018 23:06:27 Reading Location: [address] Reading Room CT, [id number] 22:44:00Reason for exam:- >MOTOR VEHICLE CRASHReason for [...] Alcantara Verified Date/Time: 11/19/2018 22:44:18 Reading Location: [address] Reading Room , SHOULDER, COMPLETE (MIN 2 VIEWS), [id number] 22:41:00Reason for exam:- >MOTOR VEHICLE CRASHReason for exam:->HIP PAINReason for exam:->ARM INJURYReason for exam:->SHOULDER INJURYFINAL REPORT Right shoulder series - 3 VIEWS Clinical Indication: Right shoulder pain following traumatic injury. Impression: No evidence of acute fracture or traumatic malalignment. Signed: Brian Garibay Verified Date/Time: 11/19/2018 22:41:16 Reading Location: [address] Reading Room URINALYSIS W/ [id number] 21:44:00 Test Item Value Reference Range Interpretation [...] 1663) SOURCE(BEAKER) (test code = 2795) SCREEN, [id number] 21:40:00 Test Item Value Reference Range Interpretation Comments TEST URINE (BEAKER) (test Negative code = 583) URINALYSIS W/ [id number] 21:41:00 Test Item Value Reference Range Interpretation [...] 1663) SOURCE(BEAKER) (test code = 2795) SCREEN, [id number] 21:37:00 Test Item Value Reference Range Interpretation Comments TEST URINE (BEAKER) (test Negative code = 583) RAPID INFLUENZA A&B [id number] 20:49:00 Test Item Value Reference Range Interpretation Comments RAPID INFLUENZA A AG (BEAKER) Negative Negative, Inconclusive (test code = 1622) RAPID INFLUENZA B AG (BEAKER) Negative Negative, Inconclusive (test code = 1623) CT, [id number] 08:31:00Reason for exam:->ABDOMINAL PAINReason for exam:->FEVERReason for [...] MDReport Verified Date/Time: 07/31/2017 08:31:14 Reading Location: [facility] Diagnostic Imaging Reading Room - [place] [id number] RAD, CHEST, 1 VIEW, NON DEPT 2017-07-31 [...] The soft tissues are unremarkable. Signed: Bladimir Arellano MDReport Verified Date/Time: 07/31/2017 08:23:48 Reading Location: [address] Radiology Reading Room [id number] 08:07:00 Test Item Value Reference Range Interpretation Comments LIPASE (BEAKER) (test code = 749) 34 U/L 6-51 URINALYSIS W/ REFLEX URINE [id number] 08:06:00 Test Item Value Reference Range Interpretation [...] code = 1663) SOURCE(BEAKER) (test code = 8475) COMPREHENSIVE METABOLIC [id number] 08:06:00 Test Item Value Reference Range Interpretation [...] S NOT APPLICABLE FOR DIALYSIS PATIEN TS. [id number] 07:58:00 Test Item Value Reference Range Interpretation Comments AMYLASE (BEAKER) (test code = 349) 52 U/L 30-110 SCREEN, [id number] 07:52:00 Test Item Value Reference Range Interpretation Comments TEST URINE (BEAKER) (test Negative code = 583) CBC W/PLT COUNT & AUTO [id number] 07:48:00 Test Item Value Reference Range Interpretation [...] 0.00-0.20 (test code = 417) BASIC METABOLIC [id number] 21:32:00 Test Item Value Reference Range Interpretation [...] DIALYSIS PATIEN TS. LACTIC ACID, VENOUS, WHOLE [id number] 21:19:00 Test Item Value Reference Range Interpretation Comments LACTATE BLOOD VENOUS 0.9 mmol/L 0.5-2.2 Specime n slightly (2) (BEAKER) (test hemolyzed code = 2872) Effective 12/15/2015: Units/Reference Range ChangeNew: 0.5-2.2 mmol/L Previous: 5-18 mg/dLCBC W/PLT COUNT & AUTO [id number] 21:07:00 Test Item Value Reference Range Interpretation [...] L 0.00-0.20 (test code = 417) SCREEN, [id number] 18:50:00 Test Item Value Reference Range Interpretation Comments TEST URINE (BEAKER) (test Negative code = 583) URINE [id number] 09:20:00 Test Item Value Reference Range Interpretation [...] = 480) CBC W/PLT COUNT & AUTO [id number] 16:52:00 Test Item Value Reference Range Interpretation [...] 0.00-0.20 (test code = 417) COMPREHENSIVE METABOLIC [id number] 16:28:00 Test Item Value Reference Range Interpretation [...] S NOT APPLICABLE FOR DIALYSIS PATIEN TS. [id number] 16:22:00 Test Item Value Reference Range Interpretation Comments LIPASE (BEAKER) (test code = 749) 26 U/L 6-51 URINALYSIS W/ REFLEX URINE [id number] 15:52:00 Test Item Value Reference Range Interpretation [...] 1663) SOURCE(BEAKER) (test code = 2795) SCREEN, [id number] 15:49:00 Test Item Value Reference Range Interpretation Comments TEST URINE (BEAKER) (test Negative code = 583) URINE AND [id number] 08:40:00 Test Item Value Reference Range Interpretation Comments UA Leuk Est (test code Trace *ABN*(02/13/16 3:40 = UA Leuk Est) AM) [facility] AND [id number] 08:40:00 Test Item Value Reference Range Interpretation Comments UA Nitrite (test code Negative (02/13/16 3:40 = UA Nitrite) AM) [facility] AND [id number] 08:40:00 Test Item Value Reference Range Interpretation Comments UA Urobilinogen (test code = UA 0.2 0.1-1.0 Urobilinogen) [facility] AND [id number] 08:40:00 Test Item Value Reference Range Interpretation Comments UA Ketones (test code Negative *NA*(02/13/16 = UA Ketones) 3:40 AM) [facility] AND [id number] 08:40:00 Test Item Value Reference Range Interpretation Comments UA Glucose (test code Negative (02/13/16 3:40 = UA Glucose) AM) [facility] AND [id number] 08:40:00 Test Item Value Reference Range Interpretation Comments UA Blood (test code = Large *ABN*(02/13/16 UA Blood) 3:40 AM) [facility] AND [id number] 08:40:00 Test Item Value Reference Range Interpretation Comments UA Bili (test code = Negative *NA*(02/13/16 UA Bili) 3:40 AM) [facility] AND [id number] 08:40:00 Test Item Value Reference Range Interpretation Comments UA Protein (test code = UA Protein) 30 mg/dL [facility] AND [id number] 08:40:00 Test Item Value Reference Range Interpretation Comments UA Spec Grav (test code = UA Spec 1.015 1 Grav) [facility] AND [id number] 08:40:00 Test Item Value Reference Range Interpretation Comments UA pH (test code = UA pH) 7.0 1 5.0-8.0 [facility] AND [id number] 08:40:00 Test Item Value Reference Range Interpretation Comments UA Color (test code = Red *ABN*(02/13/16 3:40 UA Color) AM) [facility] AND [id number] 08:40:00 Test Item Value Reference Range Interpretation Comments UA Turbidity (test code Bloody *ABN*(02/13/16 = UA Turbidity) 3:40 AM) [facility] AND [id number] 08:40:00 Test Item Value Reference Range Interpretation Comments UA Bacteria (test code = UA Occasional /HPF Bacteria) [facility] AND [id number] 08:40:00 Test Item Value Reference Range Interpretation Comments UA RBC (test Packed See_Comment [Automated mes shirley] code = UA RBC) *ABN*(02/13/16 3:40 The syst em which AM) generated this result transmitted ref erence range: <=2. The reference range was not used to int erpret this result as normal/abnormal . [facility] AND [id number] 08:40:00 Test Item Value Reference Range Interpretation Comments UA WBC (test code = UA WBC) 3-5 /HPF [facility] AND [id number] 08:40:00 Test Item Value Reference Range Interpretation Comments UA Sq Epi (test code = UA Sq Epi) Rare /LPF [employer] [id number] 06:44:00 Test Item Value Reference Range Interpretation Comments Antibody Scrn (test Negative (02/13/16 1:44 code = Antibody Scrn) AM) [employer] [id number] 06:44:00 Test Item Value Reference Range Interpretation Comments ABO/Rh (test code = ABO/Rh) A POS [employer] [id number] 06:44:00 Test Item Value Reference Range Interpretation Comments CK MB Index (test 1.6 See_Comment [Automate d message] The code = CK MB Index) system w [facility] generated this result transmit gaye reference range : <=2.5. The reference range was not used to interpr et this result as satish l/abnormal. [employer] [id number] 06:44:00 Test Item Value Reference Range Interpretation Comments CK MB (test code = CK MB) 0.9 0.5-3.6 [employer] [id number] 06:44:00 Test Item Value Reference Range Interpretation Comments Total CK (test code = Total CK) 57 12-191 [facility] [employer] [id number] 06:44:00 Test Item Value Reference Range Interpretation Comments Troponin-I (test code no gt See_Comment [Auto mated message] The = Troponin-I) system which g enerated this result transmit gaye reference range : <=0.40. The reference r ozzy was not used to interpr et this result as satish l/abnormal. [employer] [id number] 06:44:00 Test Item Value Reference Range Interpretation Comments Albumin Lvl (test code = Albumin Lvl) 3.5 3.5-5.0 [facility] [id number] 06:44:00 Test Item Value Reference Range Interpretation Comments Total Protein (test code = Total 7.0 6.4-8.4 Protein) [id number] 06:44:00 Test Item Value Reference Range Interpretation Comments ALT (test code = ALT) 19 See_Comment [Auto mated message] The system which ge nerated this result transmit gaye reference range : <=65. The reference range was not used to interpr et this result as satish l/abnormal. [facility] [id number] 06:44:00 Test Item Value Reference Range Interpretation Comments AST (test code = AST) 10 See_Comment [Auto mated message] The system which ge nerated this result transmit gaye reference range : <=37. The reference range was not used to interpr et this result as satish l/abnormal. [facility] [id number] 06:44:00 Test Item Value Reference Range Interpretation Comments Alk Phos (test code = Alk Phos) 79 39-136 [facility] [id number] 06:44:00 Test Item Value Reference Range Interpretation Comments Bili Total (test code = Bili Total) 0.4 0.2-1.3 [facility] [id number] 06:44:00 Test Item Value Reference Range Interpretation Comments Bili Direct (test code 0.1 See_Comment [Aut omated message] The = Bili Direct) system which generated this result tra nsmitted reference range : <=0.3. The reference r ozzy was not used to int erpret this result as satish l/abnormal. [facility]Log[facility] [id number] 06:44:00 Test Item Value Reference Range Interpretation Comments Globulin (test code = Globulin) 3.5 2.0-4.0 [facility] [id number] 06:44:00 Test Item Value Reference Range Interpretation Comments A/G Ratio (test code = A/G Ratio) 1.0 0.7-1.6 [facility] [id number] 06:44:00 Test Item Value Reference Range Interpretation Comments Bili Indirect (test 0.3 See_Comment [Automa gaye message] The code = Bili Indirect) system which generated this result tra nsmitted reference range : <=1.0. The reference r ozzy was not used to int erpret this result as normal/abnormal . [facility]2016-07-03 06:44:00 Test Item Value Reference Range Interpretation Comments eGFR (test code = eGFR) 107 [facility]2016-07-03 06:44:00 Test Item Value Reference Range Interpretation Comments BUN (test code = BUN) 8 7-22 [facility]2016-07-03 06:44:00 Test Item Value Reference Range Interpretation Comments Glucose Lvl (test code = Glucose Lvl) 91 70-99 [facility]2016-07-03 06:44:00 Test Item Value Reference Range Interpretation Comments Sodium Lvl (test code = Sodium Lvl) 138 135-145 [facility]2016-07-03 06:44:00 Test Item Value Reference Range Interpretation Comments Creatinine Lvl (test code = Creatinine 0.70 0.50-1.40 Lvl) [facility]2016-07-03 06:44:00 Test Item Value Reference Range Interpretation Comments Potassium Lvl (test code = Potassium 3.3 3.5-5.1 Lvl) [facility]2016-07-03 06:44:00 Test Item Value Reference Range Interpretation Comments CO2 (test code = CO2) 25 24-32 [facility]2016-07-03 06:44:00 Test Item Value Reference Range Interpretation Comments Chloride Lvl (test code = Chloride Lvl) 106 95-109 [facility]2016-07-03 06:44:00 Test Item Value Reference Range Interpretation Comments Calcium Lvl (test code = Calcium Lvl) 8.1 8.5-10.5 [facility]2016-07-03 06:44:00 Test Item Value Reference Range Interpretation Comments AGAP (test code = AGAP) 10.3 10.0-20.0 [facility]2016-07-03 06:44:00 Test Item Value Reference Range Interpretation Comments Magnesium Lvl (test code = Magnesium 2.2 1.8-2.4 Lvl) [facility]InxubecEFBPRDLWJZMMY4288-35-14 06:44:00 Test Item Value Reference Range Interpretation Comments S Preg (test code = S Negative *NA*(02/13/16 Preg) 1:44 AM) [facility] TexasSqbqdzmARANFSWNVK5397-83-21 06:44:00 Test Item Value Reference Range Interpretation Comments Basophils (test code = 0.1 See_Comment [Aut omated message] The Basophils) system which ge nerated this result tra nsmitted reference range : <=1.0. The reference r ozzy was not used to int erpret this result as normal/abnormal . [facility] TexasZzzrlygGVOUZVMHFX1751-15-97 06:44:00 Test Item Value Reference Range Interpretation Comments Monocytes # (test code 0.3 See_Comment [Aut omated message] The = Monocytes #) system which generated this result tra nsmitted reference range : <=0.8. The reference r ozzy was not used to int erpret this result as normal/abnormal . [facility] TexasPaqgbhyFBCZAFHOTC2290-61-20 06:44:00 Test Item Value Reference Range Interpretation Comments Eosinophils # (test code 0.1 See_Comment [A utomated message] The = Eosinophils #) system whic h generated this result tra nsmitted reference range : <=0.5. The reference r ozzy was not used to int erpret this result as normal/abnormal . [facility] TexasUiiordlJGBGVQSMHK2603-89-58 06:44:00 Test Item Value Reference Range Interpretation Comments Segs-Bands # (test code = Segs-Bands #) 9.3 1.5-8.1 [facility] TexasShkhiiaAWGDTHPYFK8950-78-76 06:44:00 Test Item Value Reference Range Interpretation Comments Lymphocytes # (test code = Lymphocytes 2.6 1.0-5.5 #) [facility] TexasGqwywjlIAJAPNFKRQ3546-34-19 06:44:00 Test Item Value Reference Range Interpretation Comments Basophils # (test code 0.0 See_Comment [Aut omated message] The = Basophils #) system which generated this result tra nsmitted reference range : <=0.2. The reference r ozzy was not used to int erpret this result as normal/abnormal . [facility] TexasUawiekfTVNLEQSABF0138-90-13 06:44:00 Test Item Value Reference Range Interpretation Comments Microcyte (test code = 1+ *ABN*(02/13/16 1:44 Microcyte) AM) [facility] TexasThqxvzhCHVMUZNRVM2097-77-32 06:44:00 Test Item Value Reference Range Interpretation Comments Giant Plt (test code Moderate *ABN*(02/13/16 = Giant Plt) 1:44 AM) [facility] TexasOeibxjvUJOXCUFTVT2315-56-97 06:44:00 Test Item Value Reference Range Interpretation Comments Segs (test code = Segs) 75.2 45.0-75.0 [facility] TexasLkjorfrGJRBTXAZOV6010-97-62 06:44:00 Test Item Value Reference Range Interpretation Comments Hypochrom (test code = 1+ (02/13/16 1:44 AM) Hypochrom) [facility] TexasCcmqxyoOBMRRZSRMQ5756-16-80 06:44:00 Test Item Value Reference Range Interpretation Comments Eosinophils (test code = 0.7 See_Comment [A utomated message] The Eosinophils) system which ge nerated this result tra nsmitted reference range : <=4.0. The reference r ozzy was not used to int erpret this result as normal/abnormal . [facility] TexasXxrynyzLYVULCSKKZ8039-18-41 06:44:00 Test Item Value Reference Range Interpretation Comments Lymphocytes (test code = Lymphocytes) 21.3 20.0-40.0 [facility] TexasIpzeyxmNLZBTYYGQP8259-95-13 06:44:00 Test Item Value Reference Range Interpretation Comments Monocytes (test code = Monocytes) 2.7 2.0-12.0 [facility] TexasBvkcdneEWQUQLDOER4820-31-20 06:44:00 Test Item Value Reference Range Interpretation Comments MPV (test code = MPV) 9.5 7.4-10.4 [facility] TexasNtjjvhuECPVHZQSWL8960-56-94 06:44:00 Test Item Value Reference Range Interpretation Comments RDW (test code = RDW) 17.8 11.5-14.5 [facility] TexasBpqprnnDASQTLOGSQ3122-31-60 06:44:00 Test Item Value Reference Range Interpretation Comments MCV (test code = MCV) 73.2 80.0-98.0 [facility] TexasKoekhiyAKERZSESJG5626-59-43 06:44:00 Test Item Value Reference Range Interpretation Comments MCH (test code = MCH) 21.9 pg 27.0-31.0 [facility] TexasQdefbljNXCWVLOWBO6631-53-42 06:44:00 Test Item Value Reference Range Interpretation Comments Hct (test code = Hct) 27.2 36.0-48.0 [facility] TexasCurrhwgFEZIXVRXZM2986-06-43 06:44:00 Test Item Value Reference Range Interpretation Comments MCHC (test code = MCHC) 29.9 32.0-36.0 [facility] TexasYoswyemBJBYIGUOXB5719-77-12 06:44:00 Test Item Value Reference Range Interpretation Comments Platelet (test code = Platelet) 400 133-450 [facility] TexasAxzevlzOLEQOJHJSQ7317-42-25 06:44:00 Test Item Value Reference Range Interpretation Comments WBC (test code = WBC) 12.4 3.7-10.4 [facility] TexasPavfbgfNMEMQSVLZV7129-83-20 06:44:00 Test Item Value Reference Range Interpretation Comments RBC (test code = RBC) 3.72 4.20-5.40 [facility] TexasCxlbkhvHYRBKQTXWQ0240-32-53 06:44:00 Test Item Value Reference Range Interpretation Comments Hgb (test code = Hgb) 8.1 12.0-16.0 [facility]TnbocqvMPDTUXNIFW6324-40-61 06:44:00 Test Item Value Reference Range Interpretation Comments PTT (test code = PTT) 27.2 s 22.9-35.8 [facility] TexasNksnqomDCGBFQLZSE5390-53-47 06:44:00 Test Item Value Reference Range Interpretation Comments PT (test code = PT) 14.7 s 12.0-14.7 [facility] HospitalYtgdnyeAVCJYNKXJO3354-48-43 06:44:00 Test Item Value Reference Range Interpretation Comments INR (test code = INR) 1.12 0.85-1.17 [employer] [id number] 07:51:00 Test Item Value Reference Range Interpretation Comments ABO/Rh (test code = ABO/Rh) A POS [facility] [employer]Wise [id number] 07:51:00 Test Item Value Reference Range Interpretation Comments Antibody Scrn (test Negative (09/04/14 1:51 code = Antibody Scrn) AM) [facility] [employer] Eat [id number] 07:51:00 Test Item Value Reference Range Interpretation Comments Albumin Lvl (test code = Albumin Lvl) 3.4 3.5-5.0 [facility] [employer] [id number] 07:51:00 Test Item Value Reference Range Interpretation Comments Alk Phos (test code = Alk Phos) 64 39-136 [facility] DallasYangarooNOVANT [facility] CENTERDQKXS2969-79-27 07:51:00 Test Item Value Reference Range Interpretation Comments ALT (test code = ALT) 18 See_Comment [Auto mated message] The system which ge nerated this result transmit gaye reference range : <=65. The reference range was not used to interpr et this result as satish l/abnormal. [facility]2015-01-23 07:51:00 Test Item Value Reference Range Interpretation Comments AST (test code = AST) 12 See_Comment [Auto mated message] The system which ge nerated this result transmit gaye reference range : <=37. The reference range was not used to interpr et this result as satish l/abnormal. [facility] [id number] 07:51:00 Test Item Value Reference Range Interpretation Comments eGFR (test code = eGFR) 93 [facility]2015-01-23 07:51:00 Test Item Value Reference Range Interpretation Comments Bili Total (test code = Bili Total) 0.3 0.2-1.3 [facility] HospitalAml[facility]ic [id number] 07:51:00 Test Item Value Reference Range Interpretation Comments Chloride Lvl (test code = Chloride Lvl) 108 95-109 [facility] [id number] 07:51:00 Test Item Value Reference Range Interpretation Comments Sodium Lvl (test code = Sodium Lvl) 138 135-145 [facility] [id number] 07:51:00 Test Item Value Reference Range Interpretation Comments Potassium Lvl (test code = Potassium 3.9 3.5-5.1 Lvl) [facility]2015-01-23 07:51:00 Test Item Value Reference Range Interpretation Comments CO2 (test code = CO2) 22 24-32 [facility]2015-01-23 07:51:00 Test Item Value Reference Range Interpretation Comments Calcium Lvl (test code = Calcium Lvl) 8.8 8.5-10.5 [facility] [id number] 07:51:00 Test Item Value Reference Range Interpretation Comments Glucose Lvl (test code = Glucose Lvl) 98 70-99 [facility] [id number] 07:51:00 Test Item Value Reference Range Interpretation Comments Total Protein (test code = Total 7.3 6.4-8.4 Protein) [facility]2015-01-23 07:51:00 Test Item Value Reference Range Interpretation Comments BUN (test code = BUN) 12 7- [facility]2015-01-23 07:51:00 Test Item Value Reference Range Interpretation Comments Creatinine Lvl (test code = Creatinine 0.8 0.5-1.4 Lvl) [facility]2015-01-23 07:51:00 Test Item Value Reference Range Interpretation Comments AGAP (test code = AGAP) 11.9 10.0-20.0 [facility]2015-01-23 07:51:00 Test Item Value Reference Range Interpretation Comments B/C Ratio (test code = B/C Ratio) 15 6-25 [facility]2015-01-23 07:51:00 Test Item Value Reference Range Interpretation Comments Globulin (test code = Globulin) 3.9 2.0-4.0 [facility]2015-01-23 07:51:00 Test Item Value Reference Range Interpretation Comments A/G Ratio (test code = A/G Ratio) 0.9 0.7-1.6 [facility]DiaxktpJTWOPGHJDDTSH5965-71-39 07:51:00 Test Item Value Reference Range Interpretation Comments hCG Tot (test code = hCG Tot) no gt [facility] TexasAotkbxaJTQFTTVDUZ2187-28-14 07:51:00 Test Item Value Reference Range Interpretation Comments MCHC (test code = MCHC) 33.8 32.0-36.0 [facility] TexasJgyrsouVVOXASRZWC2348-30-89 07:51:00 Test Item Value Reference Range Interpretation Comments MCH (test code = MCH) 30.3 pg 27.0-31.0 [facility] TexasFrxwvvpBWKSBGDRFQ8030-29-40 07:51:00 Test Item Value Reference Range Interpretation Comments RDW (test code = RDW) 13.0 11.5-14.5 [facility] TexasGpkdkllDWTANRVDJC5571-69-62 07:51:00 Test Item Value Reference Range Interpretation Comments MPV (test code = MPV) 8.4 7.4-10.4 [facility] TexasJkffjtwXZNAXNNQDX3968-98-98 07:51:00 Test Item Value Reference Range Interpretation Comments Platelet (test code = Platelet) 356 133-450 [facility] TexasCuzypttHLUKFBWBMB0633-65-14 07:51:00 Test Item Value Reference Range Interpretation Comments RBC (test code = RBC) 4.45 4.20-5.40 [facility] TexasFxnraylBHQAGRGCAE8286-79-61 07:51:00 Test Item Value Reference Range Interpretation Comments WBC (test code = WBC) 12.9 3.7-10.4 [facility] TexasOondcgyETOEDLGFVL4207-82-80 07:51:00 Test Item Value Reference Range Interpretation Comments Hgb (test code = Hgb) 13.5 12.0-16.0 [facility] TexasLvdyfglHCAWRYGJMC5743-89-35 07:51:00 Test Item Value Reference Range Interpretation Comments MCV (test code = MCV) 89.7 80.0-98.0 [facility] TexasZuqzfieQEABFVLZJG5029-61-61 07:51:00 Test Item Value Reference Range Interpretation Comments Hct (test code = Hct) 39.9 36.0-48.0 [facility] TexasUotazewOXFVOMSIXB7731-90-37 07:51:00 Test Item Value Reference Range Interpretation Comments Eosinophils # (test code 0.3 See_Comment [A utomated message] The = Eosinophils #) system [facility] h generated this result tra nsmitted reference range : <=0.5. The reference r ozzy was not used to int erpret this result as normal/abnormal . [facility] TexasCekeyctEGLGCKCNPI6824-75-04 07:51:00 Test Item Value Reference Range Interpretation Comments Lymphocytes # (test code = Lymphocytes 3.6 1.0-5.5 #) [facility] TexasUghdofmSECJHFIMUI1461-46-95 07:51:00 Test Item Value Reference Range Interpretation Comments Monocytes # (test code 0.7 See_Comment [Aut omated message] The = Monocytes #) system which generated this result tra nsmitted reference range : <=0.8. The reference r ozzy was not used to int erpret this result as normal/abnormal . [facility] TexasYhgwgaqRKEPEFWJJD6930-67-59 07:51:00 Test Item Value Reference Range Interpretation Comments Segs (test code = Segs) 63.9 45.0-75.0 [facility] TexasHtbmtafXHDWPVKMHZ5836-04-94 07:51:00 Test Item Value Reference Range Interpretation Comments Segs-Bands # (test code = Segs-Bands #) 8.2 1.5-8.1 [facility] TexasAvtgztbFBPMLCPDYP2282-25-93 07:51:00 Test Item Value Reference Range Interpretation Comments Basophils (test code = 0.7 See_Comment [Aut omated message] The Basophils) system which ge nerated this result tra nsmitted reference range : <=1.0. The reference r ozzy was not used to int erpret this result as normal/abnormal . [facility] TexasQfujxjrJQVAMEHLZW2516-24-08 07:51:00 Test Item Value Reference Range Interpretation Comments Monocytes (test code = Monocytes) 5.4 2.0-12.0 [facility] TexasHcthyumCVPQMUAPCM7607-81-82 07:51:00 Test Item Value Reference Range Interpretation Comments Eosinophils (test code = 2.3 See_Comment [A utomated message] The Eosinophils) system which ge nerated this result tra nsmitted reference range : <=4.0. The reference r ozzy was not used to int erpret this result as normal/abnormal . [facility] TexasPzrhhgrJVKCZNAJHJ3392-21-75 07:51:00 Test Item Value Reference Range Interpretation Comments Lymphocytes (test code = Lymphocytes) 27.7 20.0-40.0 [facility] TexasSgsehfoXTOSJDXINP8796-06-54 07:51:00 Test Item Value Reference Range Interpretation Comments Basophils # (test code 0.1 See_Comment [Aut omated message] The = Basophils #) system which generated this result tra nsmitted reference range : <=0.2. The reference r ozzy was not used to int erpret this result as normal/abnormal . [facility] AND [id number] 07:51:00 Test Item Value Reference Range Interpretation Comments UA Urobilinogen (test code = UA 1.0 0.1-1.0 Urobilinogen) [facility] AND [id number] 07:51:00 Test Item Value Reference Range Interpretation Comments UA Turbidity (test code Cloudy *ABN*(09/04/14 = UA Turbidity) 1:51 AM) [facility] AND [id number] 07:51:00 Test Item Value Reference Range Interpretation Comments UA Color (test code = Red *ABN*(09/04/14 1:51 UA Color) AM) [facility] AND [id number] 07:51:00 Test Item Value Reference Range Interpretation Comments UA Ketones (test code Negative *NA*(09/04/14 = UA Ketones) 1:51 AM) [facility] AND [id number] 07:51:00 Test Item Value Reference Range Interpretation Comments UA Glucose (test code Negative (09/04/14 1:51 = UA Glucose) AM) [facility] AND [id number] 07:51:00 Test Item Value Reference Range Interpretation Comments UA Protein (test code = Trace *ABN*(09/04/14 UA Protein) 1:51 AM) [facility] AND [id number] 07:51:00 Test Item Value Reference Range Interpretation Comments UA pH (test code = UA pH) 8.0 1 5.0-8.0 [facility] AND [id number] 07:51:00 Test Item Value Reference Range Interpretation Comments UA Spec Grav (test code = UA Spec 1.015 1 Grav) [facility] AND [id number] 07:51:00 Test Item Value Reference Range Interpretation Comments UA Bili (test code = Negative *NA*(09/04/14 UA Bili) 1:51 AM) [facility] AND [id number] 07:51:00 Test Item Value Reference Range Interpretation Comments UA Blood (test code = Large *ABN*(09/04/14 UA Blood) 1:51 AM) [facility] AND [id number] 07:51:00 Test Item Value Reference Range Interpretation Comments UA Leuk Est (test Negative (09/04/14 1:51 code = UA Leuk Est) AM) [facility] AND [id number] 07:51:00 Test Item Value Reference Range Interpretation Comments UA Nitrite (test code Negative (09/04/14 1:51 = UA Nitrite) AM) [facility] AND [id number] 07:51:00 Test Item Value Reference Range Interpretation Comments UA Amorph Joselin (test code = UA Few /HPF Amorph Joselin) [facility] AND [id number] 07:51:00 Test Item Value Reference Range Interpretation Comments UA RBC (test code 51-100 /HPF See_Comment [Automate d message] The = UA RBC) system which ge nerated this result tra nsmitted reference range : <=2. The reference r ozzy was not used to int erpret this result as normal/abnormal . [facility] AND [id number] 07:51:00 Test Item Value Reference Range Interpretation Comments UA WBC (test code = UA WBC) 6-10 /HPF [facility] AND [id number] 07:51:00 Test Item Value Reference Range Interpretation Comments UA Bacteria (test code = UA Few /HPF Bacteria) [facility] AND [id number] 07:51:00 Test Item Value Reference Range Interpretation Comments UA Sq Epi (test code = UA Sq Occasional /LPF Epi) [facility]2015-01-12 19:24:00 Test Item Value Reference Range Interpretation Comments Lipase Lvl (test code = Lipase Lvl) 104 73-393 [facility]2015-01-12 19:24:00 Test Item Value Reference Range Interpretation Comments eGFR (test code = eGFR) 109 [facility]2015-01-12 19:24:00 Test Item Value Reference Range Interpretation Comments Bili Total (test code = Bili Total) 0.6 0.2-1.3 [facility]2015-01-12 19:24:00 Test Item Value Reference Range Interpretation Comments Alk Phos (test code = Alk Phos) 72 39-136 [facility]2015-01-12 19:24:00 Test Item Value Reference Range Interpretation Comments Calcium Lvl (test code = Calcium Lvl) 8.8 8.5-10.5 [facility]2015-01-12 19:24:00 Test Item Value Reference Range Interpretation Comments CO2 (test code = CO2) 28 24-32 [facility]2015-01-12 19:24:00 Test Item Value Reference Range Interpretation Comments Chloride Lvl (test code = Chloride Lvl) 107 95-109 [facility]2015-01-12 19:24:00 Test Item Value Reference Range Interpretation Comments Potassium Lvl (test code = Potassium 3.9 3.5-5.1 Lvl) [facility]2015-01-12 19:24:00 Test Item Value Reference Range Interpretation Comments Glucose Lvl (test code = Glucose Lvl) 90 70-99 [facility]2015-01-12 19:24:00 Test Item Value Reference Range Interpretation Comments Sodium Lvl (test code = Sodium Lvl) 138 135-145 [facility]2015-01-12 19:24:00 Test Item Value Reference Range Interpretation Comments BUN (test code = BUN) 7 7-22 [facility]2015-01-12 19:24:00 Test Item Value Reference Range Interpretation Comments Creatinine Lvl (test code = Creatinine 0.7 0.5-1.4 Lvl) [facility]2015-01-12 19:24:00 Test Item Value Reference Range Interpretation Comments ALT (test code = ALT) 23 See_Comment [Auto mated message] The system which ge nerated this result transmit gaye reference range : <=65. The reference range was not used to interpr et this result as satish l/abnormal. [facility]2015-01-12 19:24:00 Test Item Value Reference Range Interpretation Comments AST (test code = AST) 12 See_Comment [Auto mated message] The system which ge nerated this result transmit gaye reference range : <=37. The reference range was not used to interpr et this result as satish l/abnormal. [facility]2015-01-12 19:24:00 Test Item Value Reference Range Interpretation Comments Albumin Lvl (test code = Albumin Lvl) 3.8 3.5-5.0 [facility]2015-01-12 19:24:00 Test Item Value Reference Range Interpretation Comments Total Protein (test code = Total 8.0 6.4-8.4 Protein) [facility]2015-01-12 19:24:00 Test Item Value Reference Range Interpretation Comments A/G Ratio (test code = A/G Ratio) 0.9 0.7-1.6 [facility]2015-01-12 19:24:00 Test Item Value Reference Range Interpretation Comments AGAP (test code = AGAP) 6.9 10.0-20.0 [facility]2015-01-12 19:24:00 Test Item Value Reference Range Interpretation Comments B/C Ratio (test code = B/C Ratio) 10 6-25 [facility]2015-01-12 19:24:00 Test Item Value Reference Range Interpretation Comments Globulin (test code = Globulin) 4.2 2.0-4.0 [facility] CenterZ[id number] 19:24:00 Test Item Value Reference Range Interpretation Comments S Preg (test code = S Negative *NA*(08/24/14 Preg) 1:24 PM) [facility] TexasIjuozvkMRHONDVOAB5525-92-42 19:24:00 Test Item Value Reference Range Interpretation Comments WBC (test code = WBC) 11.3 3.7-10.4 [facility] TexasFnzvtccLIRPOTMEFC3255-85-39 19:24:00 Test Item Value Reference Range Interpretation Comments RBC (test code = RBC) 4.75 4.20-5.40 [facility] TexasHjmmiytBNRGELCARM5143-24-56 19:24:00 Test Item Value Reference Range Interpretation Comments Platelet (test code = Platelet) 402 133-450 [facility] TexasOnxlydtQGCGRJCZVB8416-34-42 19:24:00 Test Item Value Reference Range Interpretation Comments MCV (test code = MCV) 89.9 80.0-98.0 [facility] TexasPmtawokSLTDWLMCHO8841-22-99 19:24:00 Test Item Value Reference Range Interpretation Comments Hct (test code = Hct) 42.7 36.0-48.0 [facility] TexasWhcmfdiIGVWGTUQUY0049-10-57 19:24:00 Test Item Value Reference Range Interpretation Comments Hgb (test code = Hgb) 14.5 12.0-16.0 [facility] TexasFfcfqhgHDWNHPTMTV0966-91-36 19:24:00 Test Item Value Reference Range Interpretation Comments RDW (test code = RDW) 13.5 11.5-14.5 [facility] TexasAuxvipqPYFTJNGLOI7008-57-90 19:24:00 Test Item Value Reference Range Interpretation Comments MCHC (test code = MCHC) 34.0 32.0-36.0 [facility] [id number] 19:24:00 Test Item Value Reference Range Interpretation Comments MCH (test code = MCH) 30.6 pg 27.0-31.0 [id number] 19:24:00 Test Item Value Reference Range Interpretation Comments MPV (test code = MPV) 8.1 7.4-10.4 [facility] [id number] 19:24:00 Test Item Value Reference Range Interpretation Comments Stomatocyte (test code = Stomatocyte) Slight [facility] [id number] 19:24:00 Test Item Value Reference Range Interpretation Comments Basophils # (test code 0.1 See_Comment [Aut omated message] The = Basophils #) system which generated this result tra nsmitted reference range : <=0.2. The reference r ozzy was not used to int erpret this result as normal/abnormal . [facility] [id number] 19:24:00 Test Item Value Reference Range Interpretation Comments Eosinophils # (test code 0.2 See_Comment [A utomated message] The = Eosinophils #) system whic h generated this result tra nsmitted reference range : <=0.5. The reference r ozzy was not used to int erpret this result as normal/abnormal . [facility] [id number] 19:24:00 Test Item Value Reference Range Interpretation Comments Hypochrom (test code = 1+ (08/24/14 1:24 PM) Hypochrom) [facility] [id number] 19:24:00 Test Item Value Reference Range Interpretation Comments Lymphocytes # (test code = Lymphocytes 2.8 1.0-5.5 #) [facility] Tex[id number] 19:24:00 Test Item Value Reference Range Interpretation Comments Segs-Bands # (test code = Segs-Bands #) 8.1 1.5-8.1 [facility] TexasMoadwcePAYAQAWXWJ3990-03-54 19:24:00 Test Item Value Reference Range Interpretation Comments Monocytes # (test code 0.2 See_Comment [Aut omated message] The = Monocytes #) system which generated this result tra nsmitted reference range : <=0.8. The reference r ozzy was not used to int erpret this result as normal/abnormal . [facility] TexasJuuxiroKDHRNNTKUR4978-11-97 19:24:00 Test Item Value Reference Range Interpretation Comments Lymphocytes (test code = Lymphocytes) 24.5 20.0-40.0 [facility] Tex[id number] 19:24:00 Test Item Value Reference Range Interpretation Comments Segs (test code = Segs) 71.8 45.0-75.0 [facility] [id number] 19:24:00 Test Item Value Reference Range Interpretation Comments Basophils (test code = 0.6 See_Comment [Aut omated message] The Basophils) system which ge nerated this result tra nsmitted reference range : <=1.0. The reference r ozzy was not used to int erpret this result as normal/abnormal . [facility] [id number] 19:24:00 Test Item Value Reference Range Interpretation Comments Monocytes (test code = Monocytes) 1.5 2.0-12.0 [facility] [id number] 19:24:00 Test Item Value Reference Range Interpretation Comments Eosinophils (test code = 1.6 See_Comment [A utomated message] The Eosinophils) system which ge nerated this result tra nsmitted reference range : <=4.0. The reference r ozzy was not used to int erpret this result as normal/abnormal . [facility] [id number] 19:24:00 Test Item Value Reference Range Interpretation Comments Plt Morph (test code = Normal (08/24/14 1:24 Plt Morph) PM) [facility] AND [id number] 19:24:00 Test Item Value Reference Range Interpretation Comments UA Sq Epi (test code = UA Sq Occasional /LPF Epi) [facility] AND [id number] 19:24:00 Test Item Value Reference Range Interpretation Comments UA Bacteria (test code = UA Occasional /HPF Bacteria) [facility] AND [id number] 19:24:00 Test Item Value Reference Range Interpretation Comments UA Mucus (test code = None Seen (08/24/14 UA Mucus) 1:24 PM) [facility] AND [id number] 19:24:00 Test Item Value Reference Range Interpretation Comments UA WBC (test code = UA WBC) 0-2 /HPF [facility] AND [id number] 19:24:00 Test Item Value Reference Range Interpretation Comments UA RBC (test code = 0-2 /HPF See_Comment [Automa gaye message] The UA RBC) system which ge nerated this result tra nsmitted reference range : <=2. The reference range was not used to interpr et this result as satish l/abnormal. [facility] AND [id number] 19:24:00 Test Item Value Reference Range Interpretation Comments UA Leuk Est (test Moderate *ABN*(08/24/14 code = UA Leuk Est) 1:24 PM) [facility] AND [id number] 19:24:00 Test Item Value Reference Range Interpretation Comments UA Nitrite (test code Negative (08/24/14 1:24 = UA Nitrite) PM) [facility] AND [id number] 19:24:00 Test Item Value Reference Range Interpretation Comments UA Urobilinogen (test code = UA 0.2 0.1-1.0 Urobilinogen) [facility] AND [id number] 19:24:00 Test Item Value Reference Range Interpretation Comments UA Ketones (test code Negative *NA*(08/24/14 = UA Ketones) 1:24 PM) [facility] AND [id number] 19:24:00 Test Item Value Reference Range Interpretation Comments UA Blood (test code = Negative (08/24/14 1:24 UA Blood) PM) [facility] AND [id number] 19:24:00 Test Item Value Reference Range Interpretation Comments UA Bili (test code = Negative *NA*(08/24/14 UA Bili) 1:24 PM) [facility] AND [id number] 19:24:00 Test Item Value Reference Range Interpretation Comments UA Color (test code = Yellow *NA*(08/24/14 UA Color) 1:24 PM) [facility] AND [id number] 19:24:00 Test Item Value Reference Range Interpretation Comments UA Glucose (test code Negative (08/24/14 1:24 = UA Glucose) PM) [facility] AND [id number] 19:24:00 Test Item Value Reference Range Interpretation Comments UA Protein (test code Negative (08/24/14 1:24 = UA Protein) PM) [facility] AND [id number] 19:24:00 Test Item Value Reference Range Interpretation Comments UA pH (test code = UA pH) 6.0 1 5.0-8.0 [facility] AND [id number] 19:24:00 Test Item Value Reference Range Interpretation Comments UA Spec Grav (test code *NA*(08/24/14 1:24 PM) = UA Spec Grav) [facility] AND [id number] 19:24:00 Test Item Value Reference Range Interpretation Comments UA Turbidity (test code = Clear (08/24/14 1:24 UA Turbidity) PM) [facility]
[2022-01-11 15:19] LABS: Urine Blood Trace-intact (Negative); Urine Glucose Negative (Negative); Urine Protein Negative (Negative); Urine Specific Gravity 1.015 (1.005-1.030)
[2022-01-11 15:48] LABS: Urine Bacteria <20 /HPF (<20); Urine RBC <5 /HPF (NONE SEEN)
--- NOTE | 2022-01-11 15:48 | RAD REPORT ---
EXAM DESCRIPTION: CTStone Protocol - 01/11/2022 3:37 pm CLINICAL HISTORY: Flank pain, kidney stone suspected COMPARISON: No comparisons TECHNIQUE: CT of the abdomen and pelvis was performed. All CT scans are performed using dose optimization technique as appropriate and may include automated exposure control or mA/KV adjustment according to patient size. FINDINGS: Lower chest: No acute abnormality. Liver: No acute abnormality or suspicious lesions. Biliary: Cholecystectomy. Stomach: No significant focal abnormality. Duodenum: No significant focal abnormality. Pancreas: No significant abnormality. Spleen: No significant abnormality. Adrenal: No suspicious lesions. Kidney/ureter: No hydronephrosis. No renal calculi. Retroperitoneum: No retroperitoneal adenopathy. Vascular: No aneurysm. Bowel: No significant focal abnormality. No appendicitis. Peritoneum: No ascites or free air. Bladder: Grossly unremarkable. Reproductive: No adnexal masses. IUD. Bones: No acute fracture. Other: n/a IMPRESSION: No acute intra-abdominal or pelvic finding. No urinary tract calculi identified.
[2022-01-11 15:57] LABS: Urine Specific Gravity/Preg 1.015 (1.005-1.030)
[2022-01-11] MEDS ORDERED: MORPHINE 4 MG/ML SYR ONE ×2 (16:03→17:51)
[2022-01-11] MEDS ORDERED: NA CHLORIDE 0.9% 1,000 ML ONE (16:04)
[2022-01-11] MEDS ORDERED: ONDANSETRON 4 MG/2 ML VIAL ONE (16:04)
[2022-01-11 16:06] LABS: Barbiturates NEGATIVE (NEGATIVE); Benzodiazepines NEGATIVE (NEGATIVE); Cocaine NEGATIVE (NEGATIVE); METHAMPHETAM NEGATIVE (NEGATIVE); Methadone NEGATIVE (NEGATIVE); Opiates NEGATIVE (NEGATIVE); Phencyclidine NEGATIVE (NEGATIVE); THC Cannibis NEGATIVE (NEGATIVE)
[2022-01-11 16:33] LABS: Absolute Lymphocytes (CBC) 3.7 K/uL (0.7-4.9); Lymphocytes % 38.5 % (15.3-44.8); MPV 7.5 fL (7.6-11.3); RBC Red Blood Cell Count 4.88 M/uL (3.86-4.86)
[2022-01-11 16:39] LABS: Protime INR 1.12
[2022-01-11 17:05] LABS: ALT/SGPT 30 U/L (12-78); AST/SGOT 14 U/L (15-37); Albumin 3.7 g/dL (3.4-5.0); Alkaline Phosphatase 85 U/L (45-117); BUN Blood Urea Nitrogen 7 mg/dL (7-18); Bicarbonate 27 mmol/L (21-32); Bilirubin Direct 0.2 mg/dL (0-0.2); Bilirubin Total 0.6 mg/dL (0.2-1.0); Glomerular Filtration Rate 103 ml/min (=/>90); Glucose Level 86 mg/dL (74-106); Lipase 152 U/L (73-393); Potassium 3.6 mmol/L (3.5-5.1); Protein, Total 7.4 g/dL (6.4-8.2); Sodium Level 137 mmol/L (136-145)
[2022-01-11] MEDS ORDERED: CEFTRIAXONE 1000 MG/VIAL ONE (17:07)
[2022-01-11] MEDS ORDERED: PHENAZOPYRIDINE 100MG TAB PO ONE (17:07)
[2022-01-11] MEDS ORDERED: NA CHLORIDE 0.9% 50 ML ONE (17:08)
--- NOTE | 2022-01-11 18:09 | EDPHYS ---
Physician Documentation [facility] Name: Shanna Nur Age: 46 yrs Sex: Female : 1975 Arrival Date: 01/11/2022 Time: 14:16 Bed 14 Private MD: ED Physician Tony Tran HPI: 01/11 15:30 This 46 yrs old Female presents to ER via Ambulatory with complaints of Fever, Possible cp Kidney Stone. 15:30 The patient presents with pelvic pain, that is located in/on the suprapubic area, low cp back pain. 15:30 Onset: The symptoms/episode began/occurred yesterday. Associated signs and symptoms: cp Pertinent positives: dark colored urine, Pertinent negatives: diarrhea, fever, vaginal bleeding. 15:30 Severity of symptoms: in the emergency department the symptoms are unchanged, despite cp home interventions. Patient reports that she passed a kidney stone yesterday. 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 - Social history:: Smoking status: Patient denies any tobacco usage or history of. Patient/guardian denies using alcohol. ROS: 15:35 Constitutional: Negative for body aches, chills, fever, poor PO intake. cp 15:35 Eyes: Negative for injury, pain, redness, and discharge. cp 15:35 Cardiovascular: Negative for chest pain, palpitations. 15:35 Respiratory: Negative for cough, shortness of breath, wheezing. 15:35 Abdomen/GI: Negative for vomiting, diarrhea, constipation. 15:35 Back: Positive for pain at rest, pain with movement. 15:35 : Positive for pelvic pain, dark colored urine, Negative for vaginal bleeding, vaginal discharge. 15:35 Neuro: Negative for altered mental status, headache, weakness. 15:35 All other systems are negative. Exam: 15:40 Constitutional: The patient appears in no acute distress, alert, awake, cp non-diaphoretic, non-toxic, well developed, well nourished, uncomfortable. 15:40 Head/Face: Normocephalic, atraumatic. cp 15:40 Eyes: Periorbital structures: appear normal, Pupils: equal, round, and reactive to light and accomodation, Extraocular movements: intact throughout, Conjunctiva: normal, no exudate, no injection, Sclera: no appreciated abnormality, Lids and lashes: appear normal, bilaterally. 15:40 ENT: External ear(s): are unremarkable, Nose: is normal, Mouth: Lips: moist, Oral mucosa: pink and intact, moist, Posterior pharynx: Airway: no evidence of obstruction, patent. 15:40 Neck: ROM/movement: is normal, is supple, without pain, no range of motions limitations. 15:40 Chest/axilla: Inspection: normal, Palpation: is normal, no crepitus, no tenderness. 15:40 Cardiovascular: Rate: normal, Rhythm: regular. 15:40 Respiratory: the patient does not display signs of respiratory distress, Respirations: normal, no use of accessory muscles, no retractions, labored breathing, is not present, Breath sounds: are clear throughout, no decreased breath sounds, no stridor, no wheezing. 15:40 Abdomen/GI: Inspection: abdomen appears normal, Bowel sounds: active, all quadrants, Palpation: soft, in all quadrants, moderate abdominal tenderness, in the suprapubic area, rebound tenderness, is not appreciated, voluntary guarding, is elicited in the suprapubic area. 15:40 Back: pain, that is moderate, of the low back area and mid back area, ROM is painful, with all movement. 15:40 Neuro: Orientation: to person, place \T\ time. Mentation: is normal, Motor: moves all fours, strength is normal, Sensation: no obvious gross deficits. 16:15 ECG was reviewed by the Attending Physician. cp Vital Signs: 14:28 BP 127 / 88; Pulse 91; Resp 20; Temp 99.0(O); Pulse Ox 99% on R/A; Weight 65.77 kg; ld1 Height 5 ft. 4 in. (162.56 cm); Pain 10/10; 16:25 BP 109 / 58; Pulse 66; Resp 20 S; Pulse Ox 97% on R/A; Pain 8/10; jg9 18:10 BP 125 / 69; Pulse 95; Resp 22 S; Pulse Ox 100% ; jg9 14:28 Body Mass Index 24.89 (65.77 kg, 162.56 cm) ld1 MDM: 15:24 Patient medically screened. cp 16:00 Differential diagnosis: appendicitis, cervicitis, kidney stone, ovarian cyst, pelvic cp inflammatory disease, urinary tract infection, vaginosis. 18:07 Data reviewed: vital signs, nurses notes, lab test result(s), radiologic studies, CT cp scan. 18:07 Counseling: I had a detailed discussion with the patient and/or guardian regarding: the cp historical points, exam findings, and any diagnostic results supporting the discharge/admit diagnosis, lab results, radiology results, to return to the emergency department if symptoms worsen or persist or if there are any questions or concerns that arise at home. Response to treatment: the patient's symptoms have markedly improved after treatment, VSS. Pain improved. Will discharge to home for continued monitoring. Special discussion: Based on the patient's Hx, exam, and Dx evaluation, there is no indication for emergent surgery or inpatient Tx. It is understood by the patient/guardian that if the Sx's persist or worsen they need to return immediately for re-evaluation. 01/11 14:32 Order name: Urine Microscopic Only; Complete Time: 15:55 ld1 01/11 15:55 Interpretation: Abnormal: UWBC 5-10. cp 01/11 14:32 Order name: Urine Culture ld1 01/11 15:19 Order name: Urine Dipstick-Ancillary; Complete Time: 15:25 EDMS 01/11 15:25 Interpretation: Normal except: UBLD Trace-intact; UESTR Trace. cp 01/11 15:20 Order name: Urine --Ancillary (enter results); Complete Time: 16:51 bd 01/11 15:26 Order name: Acetaminophen; Complete Time: 17:31 cp 01/11 15:26 Order name: Basic Metabolic Panel; Complete Time: 17:31 cp 01/11 17:31 Interpretation: Reviewed. cp 01/11 15:26 Order name: CBC with Diff; Complete Time: 16:51 cp 06/01 16:52 Interpretation: Normal except: RBC 4.88; PLT 432; MPV 7.5; BASO% 1.4. cp 06/01 15:26 Order name: ETOH Level; Complete Time: 17:31 cp 06/01 15:26 Order name: Hepatic Function; Complete Time: 17:31 cp 06/01 17:31 Interpretation: Normal except: AST 14; GLOB 3.7; A/G 1.0. cp 06/01 15:26 Order name: PT-INR; Complete Time: 16:51 cp 06/01 15:26 Order name: Ptt, Activated; Complete Time: 16:51 cp / 15:26 Order name: Salicylate; Complete Time: 17:31 cp / 15:26 Order name: Urine Drug Screen; Complete Time: 16:51 cp /01 15:26 Order name: Lipase; Complete Time: 17:31 cp / 14:32 Order name: Urine Dipstick-Ancillary (obtain specimen); Complete Time: 15:23 ld1 06/ 15:26 Order name: EKG; Complete Time: 15:27 cp /01 15:26 Order name: EKG - Nurse/Tech; Complete Time: 16:31 cp / 15:26 Order name: IV Saline Lock; Complete Time: 16:32 cp / 15:26 Order name: Labs collected and sent; Complete Time: 16:32 cp /01 15:26 Order name: CT Stone Protocol; Complete Time: 15:55 cp EC:15 Rate is 82 beats/min. Rhythm is regular. IL interval is normal. QRS interval is normal. cp QT interval is normal. T waves are Inverted in lead aVR. Interpreted by me. Reviewed by me. Administered Medications: 16:25 Drug: morphine 4 mg {Note: RASS-0.} Route: IVP; Infused Over: 4 mins; Site: right upper jg9 arm; 16:58 Follow up: Response: No adverse reaction; Pain is decreased 9 16:25 Drug: Zofran (Ondansetron) 4 mg Route: IVP; Site: right upper arm; jg9 16:58 Follow up: Response: No adverse reaction [facility] 16:30 Drug: NS 0.9% 1000 ml Route: IV; Rate: 1 bolus; Site: right upper arm; jg9 18:15 Follow up: IV Status: Completed infusion; IV Intake: 1000ml jg9 17:12 Drug: Pyridium (phenazopyridine) 200 mg Route: PO; jg9 17:58 Follow up: Response: No adverse reaction jg9 17:12 Drug: Rocephin - (cefTRIAXone) 1 grams Route: IVPB; Infused Over: 30 mins; Site: right j9 upper arm; 17:58 Follow up: IV Status: Completed infusion; IV Intake: 50ml jg9 17:57 Drug: morphine 4 mg Route: IVP; Infused Over: 4 mins; Site: right upper arm; jg9 18:12 Follow up: Response: No adverse reaction jg9 18:14 Not Given (Patient Refused; patient reports she gets severe headaches from this jg9 medicationn): Ketorolac 15 mg IVP once Disposition: 18:48 Co-signature as Attending Physician, Tony Tran MD I agree with the assessment and kdr plan of care. Disposition Summary: 01/11/22 18:08 Discharge Ordered Location: Home cp Problem: new cp Symptoms: have improved cp Condition: Stable cp Diagnosis - UTI/ Urinary tract infection, site not specified cp Followup: cp - With: Private Physician - When: 2 - 3 days - Reason: Recheck today's complaints Discharge Instructions: - Discharge Summary Sheet cp - Urinary Tract Infection, Adult cp Forms: - Medication Reconciliation Form cp - Thank You Letter cp - Antibiotic Education cp - Prescription Opioid Use cp Prescriptions: - Pyridium 200 mg Oral Tablet - take 1 tablet by ORAL route every 8 hours for 3 days; 9 tablet; Refills: 0, cp Product Selection Permitted - Zofran 4 mg Oral Tablet - take 1 tablet by ORAL route every 12 hours As needed; 20 tablet; Refills: 0, cp Product Selection Permitted - Bactrim DS 800-160 mg Oral Tablet - take 1 tablet by ORAL route every 12 hours for 7 days; 14 tablet; Refills: 0, cp Product Selection Permitted Signatures: Dispatcher [employer] EDTony Jurado MD MD kdr Page, Corey, PA PA cp Ashia Jaeger RN RN ld1 Inez Hogan RN RN jg9 Corrections: (The following items were deleted from the chart) 15:55 15:26 Suicide Screening ([place]) ordered. cp jg9 01/12 16:51 06 15:30 The patient presents with suprapubic pain, cp cp
--- NOTE | 2022-01-11 18:09 | ER ---
Nurse's Notes [facility] Name: Shanna Nur Age: 46 yrs Sex: Female : 1975 Arrival Date: 01/11/2022 Time: 14:16 Bed 14 Private MD: Diagnosis: UTI/ Urinary tract infection, site not specified Presentation: 01/11 14:28 Chief complaint: Patient states: I passed a kidney stone last night. C/O pelvic pain, ld1 BARBIE lower back pain, dark urine. Coronavirus screen: At this time, the client does not indicate any symptoms associated with coronavirus-19. Ebola Screen: No symptoms or risks identified at this time. Initial Sepsis Screen: Does the patient meet any 2 criteria? No. Patient's initial sepsis screen is negative. Does the patient have a suspected source of infection? No. Patient's initial sepsis screen is negative. Risk Assessment: Do you want to hurt yourself or someone else? Patient reports no desire to harm self or others. Onset of symptoms was January 11, 2022. 14:28 Method Of Arrival: Ambulatory ld1 14:28 Acuity: JESUS 3 ld1 Triage Assessment: 14:30 General: Appears in no apparent distress. comfortable, Behavior is calm, cooperative, ld1 appropriate for age. Pain: Complains of pain in low back area and suprapubic area Pain does not radiate. Pain currently is 10 out of 10 on a pain scale. EENT: No signs and/or symptoms were reported regarding the EENT system. Neuro: Level of Consciousness is awake, alert, obeys commands, Oriented to person, place, time, situation. Cardiovascular: Capillary refill < 3 seconds Patient's skin is warm and dry. Respiratory: Airway is patent Respiratory effort is even, unlabored. GI: Abdomen is flat, non-distended. : Reports burning with urination, urinary frequency. 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 - Social history:: Smoking status: Patient denies any tobacco usage or history of. Patient/guardian denies using alcohol. Screenin:32 Abuse screen: Denies threats or abuse. Denies injuries from another. Nutritional jg9 screening: No deficits noted. Tuberculosis screening: No symptoms or risk factors identified. Fall Risk None identified. Assessment: 15:34 Reassessment: Pt to CT at this time. ss 16:32 Reassessment: No changes from previously documented assessment. Patient and/or family jg9 updated on plan of care and expected duration. Pain level reassessed. Patient is alert, oriented x 3, equal unlabored respirations, skin warm/dry/pink. 16:33 GI: Bowel sounds present X 4 quads. Abdomen is tender to palpation in posterior aspect jg9 of left lateral abdomen, anterior aspect of left lateral abdomen and left lower quadrant. 17:58 Reassessment: Patient and/or family updated on plan of care and expected duration. Pain jg9 level reassessed. Patient is alert, oriented x 3, equal unlabored respirations, skin warm/dry/pink. patient just medicated again. Vital Signs: 14:28 BP 127 / 88; Pulse 91; Resp 20; Temp 99.0(O); Pulse Ox 99% on R/A; Weight 65.77 kg; ld1 Height 5 ft. 4 in. (162.56 cm); Pain 10/10; 16:25 BP 109 / 58; Pulse 66; Resp 20 S; Pulse Ox 97% on R/A; Pain 8/10; jg9 18:10 BP 125 / 69; Pulse 95; Resp 22 S; Pulse Ox 100% ; jg9 14:28 Body Mass Index 24.89 (65.77 kg, 162.56 cm) ld1 ED Course: 14:16 Patient arrived in ED. as 14:27 Tee Bill PA is PHCP. cp 14:27 Tony Tran MD is Attending Physician. cp 14:29 Triage completed. ld1 14:30 Arm band placed on left wrist. ld1 15:39 CT Stone Protocol In Process Unspecified. EDMS 15:40 Urine --Ancillary (enter results) Sent. [facility] 15:40 Urine Microscopic Only Sent. [facility] 15:40 Urine Culture Sent. [facility] 15:45 Patient has correct armband on for positive identification. Bed in low position. Call [facility] light in reach. Pulse ox on. NIBP on. 15:45 Urine Drug Screen Sent. [facility] 15:45 Urine collected: clean catch specimen, cloudy. [facility] 15:48 Placed in gown. Side rails up X 1. bus driver/monitor on. [facility] 15:53 Inez Hogan, RN is Primary Nurse. [facility] 16:00 Inserted saline lock: 22 gauge in right upper arm, using aseptic technique. Blood [facility] collected. 18:23 No provider procedures requiring assistance completed. [facility] 18:23 IV discontinued. j9 Administered Medications: 16:25 Drug: morphine 4 mg {Note: RASS-0.} Route: IVP; Infused Over: 4 mins; Site: right upper [facility] arm; 16:58 Follow up: Response: No adverse reaction; Pain is decreased j 16:25 Drug: Zofran (Ondansetron) 4 mg Route: IVP; Site: right upper arm; j9 16:58 Follow up: Response: No adverse reaction [facility] 16:30 Drug: NS 0.9% 1000 ml Route: IV; Rate: 1 bolus; Site: right upper arm; j9 18:15 Follow up: IV Status: Completed infusion; IV Intake: 1000ml [facility] 17:12 Drug: Pyridium (phenazopyridine) 200 mg Route: PO; 9 17:58 Follow up: Response: No adverse reaction [facility] 17:12 Drug: Rocephin - (cefTRIAXone) 1 grams Route: IVPB; Infused Over: 30 mins; Site: right [facility] upper arm; 17:58 Follow up: IV Status: Completed infusion; IV Intake: 50ml [facility] 17:57 Drug: morphine 4 mg Route: IVP; Infused Over: 4 mins; Site: right upper arm; 9 18:12 Follow up: Response: No adverse reaction [facility] 18:14 Not Given (Patient Refused; patient reports she gets severe headaches from this [facility] medicationn): Ketorolac 15 mg IVP once Medication: 16:34 VIS not applicable for this client. jg9 Intake: 17:58 IV: 50ml; Total: 50ml. jg9 18:15 IV: 1000ml; Total: 1050ml. jg9 Outcome: 18:08 Discharge ordered by . kyle 18:23 Discharged to home ambulatory. jg9 18:23 Condition: improved 18:23 Discharge instructions given to patient, Instructed on discharge instructions, follow up and referral plans. Demonstrated understanding of instructions, follow-up care, Prescriptions given X 3. 18:23 Patient left the ED. jg9 Signatures: Dispatcher [employer] EDMS Traci Ramirez Shelby RN RN ss Tee Bill PA PA Rhiannon Garcia [facility] Ashia Jaeger RN RN ld1 Inez Hogan RN RN jg9 Corrections: (The following items were deleted from the chart) 18:14 18:12 Ketorolac 15 mg IVP in right upper arm jg9 jg9
[2022-01-11 18:56] VITALS: BP 125/69; O2SAT 100
[2022-01-11 18:58] VITALS: TEMP 99
--- NOTE | 2022-01-12 13:46 | EKG ---
Test Date: 2022-01-11 Test Time: 16:09:02 Dietary Services Manager: ABBY MEASUREMENT RESULTS: Intervals: Rate: 82 KS: 148 QRSD: 70 QT: 388 QTc: 453 [place]: P: 53 KS: 148 QRS: 67 T: 53 INTERPRETIVE STATEMENTS: Normal sinus rhythm Normal ECG Compared to ECG 12/23/2021 14:21:42 No significant changes Electronically Signed On 01-12-22 13:45:10 CDT by Patrick Floyd
== END 2022-01-11 18:23 | disposition home or self-care (01) ==
LOC: ER 14:13
DX: N39.0 Urinary tract infection, site not specified (principal); I10 Essential (primary) hypertension; Z87.820 Personal history of traumatic brain injury; Z88.5 Allergy status to narcotic agent; Z88.8 Allergy status to other drugs, medicaments and biological substances; Z91.013 Allergy to seafood; Z91.040 Latex allergy status; Z91.048 Other nonmedicinal substance allergy status
CPT/HCPCS: 96365; 96361; 93005; 87088; 85025; 87086; 80048; 36415; 80320; 80329 ×2; 81025; 85610; 80076; 85730; 83690; 80307; 76377; 74176; 96375; 99284; J7030; J2405; 81003; 81015

== ENCOUNTER 2022-02-11 00:37 | Observation (INO) | payer OTHER ==
[2022-02-11 01:41] LABS: Urine Blood Negative (Negative); Urine Glucose Negative (Negative); Urine Protein Negative (Negative); Urine Specific Gravity 1.015 (1.005-1.030)
[2022-02-11 02:12] LABS: Urine Specific Gravity/Preg 1.015 (1.005-1.030)
[2022-02-11] MEDS ORDERED: NA CHLORIDE 0.9% 1,000 ML ONE (02:58)
[2022-02-11 02:59] LABS: Absolute Lymphocytes (CBC) 3.9 K/uL (0.7-4.9); Hematocrit 42.7 % (36.0-45.0); Lymphocytes % 35.1 % (15.3-44.8); MCV 91.4 fL (80-100); MPV 7.9 fL (7.6-11.3); Protime INR 1.11; RBC Red Blood Cell Count 4.68 M/uL (3.86-4.86)
[2022-02-11] MEDS ORDERED: ASPIRIN 81 MG CHEWABLE TABLET ONE (03:02)
--- NOTE | 2022-02-11 03:10 | ER ---
Nurse's Notes [facility] Name: Shanna Nur Age: 46 yrs Sex: Female : 1975 Arrival Date: 02/11/2022 Time: 00:40 Bed 20 Private MD: Diagnosis: Chest pain, unspecified;Essential (primary) hypertension Presentation: 02/11 01:00 Chief complaint: Patient states: "The past couple of weeks I have been having chest vc1 pain but tonight it is real bad it woke me up out of a sleep. I feel like my heart is fluttering. I also been having dizzy spells the last few days. The other day I took an aspirin when it first happened and it went away.". Coronavirus screen: Vaccine status: Patient reports being unvaccinated. At this time, the client does not indicate any symptoms associated with coronavirus-19. Ebola Screen: No symptoms or risks identified at this time. Risk Assessment: Do you want to hurt yourself or someone else? Patient reports no desire to harm self or others. Onset of symptoms is unknown. 01:00 Method Of Arrival: Ambulatory vc1 01:00 Acuity: JESUS 3 vc1 01:17 Initial Sepsis Screen: Does the patient meet any 2 criteria? No. Patient's initial vc1 sepsis screen is negative. Does the patient have a suspected source of infection? No. Patient's initial sepsis screen is negative. 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 - Social history:: Smoking status: Patient denies any tobacco usage or history of. Screenin:48 Abuse screen: Denies threats or abuse. Nutritional screening: No deficits noted. fu Tuberculosis screening: No symptoms or risk factors identified. Fall Risk None identified. Assessment: 00:50 General: Appears in no apparent distress. Behavior is calm, cooperative, appropriate fu for age, Denies fever. Pain: Complains of pain in chest Pain does not radiate. Pain currently is 5 out of 10 on a pain scale. Quality of pain is described as Pain began about a week ago. Cardiovascular: Reports chest pain, lightheadedness. Respiratory: Respiratory effort is even, unlabored, Respiratory pattern is regular. 02:00 Reassessment: Patient and/or family updated on plan of care and expected duration. Pain fu level reassessed. Patient is alert, oriented x 3, equal unlabored respirations, skin warm/dry/pink. 03:00 Reassessment: No changes from previously documented assessment. Patient is alert, fu oriented x 3, equal unlabored respirations, skin warm/dry/pink. Vital Signs: 01:05 BP 128 / 79; Pulse 89; Resp 18; Temp 98.8; Pulse Ox 99% on R/A; Pain 10/10; vc1 01:17 Weight 68.04 kg; Height 5 ft. 3 in. (160.02 cm); vc1 03:00 BP 111 / 93; Pulse 79; Resp 16; Pulse Ox 97% on R/A; fu 03:30 BP 104 / 67; Pulse 72; Resp 15; Pulse Ox 95% ; fu 04:00 BP 117 / 77; Pulse 79; Resp 18; Pulse Ox 96% ; fu 04:30 BP 133 / 87; Pulse 93; Resp 20; Pulse Ox 99% ; Pain 0/10; fu 01:17 Body Mass Index 26.57 (68.04 kg, 160.02 cm) vc1 ED Course: 00:40 Patient arrived in ED. am2 01:02 Triage completed. vc1 01:02 Arm band placed on right wrist. vc1 01:49 Tee Pugh MD is Attending Physician. [facility] 02:30 XRAY Chest (1 view) In Process Unspecified. EDMS 02:30 Inserted saline lock: 20 gauge in right hand, using aseptic technique. Blood collected. fu 02:47 Umadhay, Michael, RN is Primary Nurse. fu 02:47 SARS-COV-2 RT PCR (Document "Date of Onset" if Symptomatic) Sent. fu 02:48 Patient has correct armband on for positive identification. Bed in low position. Call fu light in reach. pvc monitor on. Pulse ox on. NIBP on. 03:06 Lorraine Mejia MD is Hospitalizing Provider. chiquis 04:00 No provider procedures requiring assistance completed. Patient maintains SpO2 fu saturation greater than 95% on room air. 04:49 Patient admitted, IV remains in place. fu Administered Medications: 02:54 Drug: NS 0.9% 1000 ml Route: IV; Rate: 125 ml/hr; Site: right hand; fu 03:00 Drug: Aspirin Chewable Tablet 324 mg Route: PO; fu 04:00 Follow up: Response: No adverse reaction fu 03:49 Drug: Lovenox (enoxaparin) 1 mg/kg Route: Sub-Q; Site: abdomen; fu 04:53 Follow up: Response: No adverse reaction fu 04:24 Drug: Zofran (Ondansetron) 4 mg Route: IVP; Site: right hand; fu 04:53 Follow up: Response: Nausea is decreased fu Medication: 04:49 VIS not applicable for this client. fu Outcome: 03:09 Decision to Hospitalize by Provider. chiquis 04:44 Admitted to ER Hold. Please see [facility] for further documentation. fu 04:44 Condition: unchanged 04:44 Instructed on the need for admit, Demonstrated understanding of instructions. 06:52 Patient left the ED. fu Signatures: Dispatcher [employer] EDTee Falcon MD MD cha Moreno, Amanda am2 Umadhay, Felix, RN RN Karin Rendon RN RN vc1
--- NOTE | 2022-02-11 03:10 | EDPHYS ---
Physician Documentation [facility] [place] Name: Shanna Nur Age: 46 yrs Sex: Female : 1975 Arrival Date: 02/11/2022 Time: 00:40 Bed 20 Private MD: ROCAEL Physician Tee Pugh HPI: 02/11 02:56 This 46 yrs old Female presents to ER via Ambulatory with complaints of Chest chiquis Pain. 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 - Social history:: Smoking status: Patient denies any tobacco usage or history of. ROS: 03:02 Constitutional: Negative for fever, chills, and weight loss, Eyes: Negative for injury, chiquis pain, redness, and discharge, ENT: Negative for injury, pain, and discharge, Neck: Negative for injury, pain, and swelling, Respiratory: Negative for shortness of breath, cough, wheezing, and pleuritic chest pain, Abdomen/GI: Negative for abdominal pain, nausea, vomiting, diarrhea, and constipation, Back: Negative for injury and pain, : Negative for injury, bleeding, discharge, and swelling, MS/Extremity: Negative for injury and deformity, Skin: Negative for injury, rash, and discoloration, Neuro: Negative for headache, weakness, numbness, tingling, and seizure, Psych: Negative for depression, anxiety, suicide ideation, homicidal ideation, and hallucinations, Allergy/Immunology: Negative for hives, rash, and allergies, Endocrine: Negative for neck swelling, polydipsia, polyuria, polyphagia, and marked weight changes, Hematologic/Lymphatic: Negative for swollen nodes, abnormal bleeding, and unusual bruising. 03:02 Cardiovascular: Positive for chest pain, of the chest. Exam: 03:02 Constitutional: This is a well developed, well nourished patient who is awake, alert, chiquis and in no acute distress. Head/Face: Normocephalic, atraumatic. Eyes: Pupils equal round and reactive to light, extra-ocular motions intact. Lids and lashes normal. Conjunctiva and sclera are non-icteric and not injected. Cornea within normal limits. Periorbital areas with no swelling, redness, or edema. ENT: Nares patent. No nasal discharge, no septal abnormalities noted. Tympanic membranes are normal and external auditory canals are clear. Oropharynx with no redness, swelling, or masses, exudates, or evidence of obstruction, uvula midline. Mucous membranes moist. Neck: Trachea midline, no thyromegaly or masses palpated, and no cervical lymphadenopathy. Supple, full range of motion without nuchal rigidity, or vertebral point tenderness. No Meningismus. Chest/axilla: Normal chest wall appearance and motion. Nontender with no deformity. No lesions are appreciated. Cardiovascular: Regular rate and rhythm with a normal S1 and S2. No gallops, murmurs, or rubs. Normal PMI, no JVD. No pulse deficits. Respiratory: Lungs have equal breath sounds bilaterally, clear to auscultation and percussion. No rales, rhonchi or wheezes noted. No increased work of breathing, no retractions or nasal flaring. Abdomen/GI: Soft, non-tender, with normal bowel sounds. No distension or tympany. No guarding or rebound. No evidence of tenderness throughout. Back: No spinal tenderness. No costovertebral tenderness. Full range of motion. Skin: Warm, dry with normal turgor. Normal color with no rashes, no lesions, and no evidence of cellulitis. MS/ Extremity: Pulses equal, no cyanosis. Neurovascular intact. Full, normal range of motion. Neuro: Awake and alert, GCS 15, oriented to person, place, time, and situation. Cranial nerves II-XII grossly intact. Motor strength 5/5 in all extremities. Sensory grossly intact. Cerebellar exam normal. Normal gait. Psych: Awake, alert, with orientation to person, place and time. Behavior, mood, and affect are within normal limits. 03:02 ECG was reviewed by the Attending Physician. Vital Signs: 01:05 BP 128 / 79; Pulse 89; Resp 18; Temp 98.8; Pulse Ox 99% on R/A; Pain 10/10; vc1 01:17 Weight 68.04 kg; Height 5 ft. 3 in. (160.02 cm); vc1 03:00 BP 111 / 93; Pulse 79; Resp 16; Pulse Ox 97% on R/A; fu 03:30 BP 104 / 67; Pulse 72; Resp 15; Pulse Ox 95% ; fu 04:00 BP 117 / 77; Pulse 79; Resp 18; Pulse Ox 96% ; fu 04:30 BP 133 / 87; Pulse 93; Resp 20; Pulse Ox 99% ; Pain 0/10; fu 01:17 Body Mass Index 26.57 (68.04 kg, 160.02 cm) vc1 MDM: 01:49 Patient medically screened. chiquis 03:04 Differential diagnosis: abnormal EKG, acute myocardial infarction, acute pericarditis, chiquis coronary artery disease chest wall pain, congestive heart failure cholecystitis, hiatal hernia, pancreatitis, peptic ulcer disease, pleurisy, pneumonia, pulmonary embolus, stable angina, unstable angina. HEART Score: History: Slightly Suspicious (0), ECG: Normal (0), Age: > 45 and < 65 years (1), Risk Factors: > or = 3 Risk factors for atherosclerotic disease (2), [Hypertension] [+ Family HX] [Obesity]. The patient was given aspirin in the Emergency Department. The patient's deep vein thrombosis risk score was calculated as follows: Total Score: 0. This patient was found to be at low risk for a deep vein thrombosis by using the Well's assessment criteria. The patient's pulmonary embolism risk score was calculated as follows: Total Score: 0-2 points. This patient was found to be at low risk for a pulmonary embolism by using the Well's assessment criteria. CARLENE Risk Score: 1 - Three or more CAD risk factors, TOTAL SCORE = 2. Data reviewed: vital signs, nurses notes, lab test result(s), EKG, radiologic studies, CT scan, plain films. Data interpreted: cardiac monitor technician: Pulse oximetry: on room air. Test interpretation: by ED physician or midlevel provider: ECG, plain radiologic studies. Counseling: I had a detailed discussion with the patient and/or guardian regarding: the historical points, exam findings, and any diagnostic results supporting the discharge/admit diagnosis, lab results, radiology results, the need for further work-up and treatment in the hospital. 02/11 01:41 Order name: Urine Dipstick-Ancillary; Complete Time: 02:45 EDMS 02/11 01:52 Order name: Basic Metabolic Panel; Complete Time: 03:17 [facility] 02/11 01:52 Order name: CBC with Diff; Complete Time: 03:03 [facility] 02/11 01:52 Order name: LFT's; Complete Time: 03:17 [facility] 02/11 01:52 Order name: Magnesium; Complete Time: 03:17 [facility] 02/11 01:52 Order name: NT PRO-BNP; Complete Time: 03:17 [facility] 02/11 01:52 Order name: PT-INR; Complete Time: 03:03 [facility] 02/11 01:52 Order name: Troponin HS; Complete Time: 03:17 [facility] 02/11 01:52 Order name: XRAY Chest (1 view) [facility] 02/11 01:52 Order name: Lipase; Complete Time: 03:17 [facility] 02/11 01:52 Order name: SARS-COV-2 RT PCR (Document "Date of Onset" if Symptomatic); Complete Time: [facility] 05:30 02/11 02:09 Order name: Urine --Ancillary (enter results) lp1 02/11 01:52 Order name: EKG; Complete Time: 01:52 [facility] 02/11 01:52 Order name: Cardiac monitoring; Complete Time: 02:47 [facility] 02/11 01:52 Order name: EKG - Nurse/Tech; Complete Time: 02:47 [facility] 02/11 01:52 Order name: IV Saline Lock; Complete Time: 02:47 [facility] 02/11 01:52 Order name: Labs collected and sent; Complete Time: 02:47 [facility] 02/11 01:52 Order name: O2 Per Protocol; Complete Time: 02:47 [facility] 02/11 01:52 Order name: O2 Sat Monitoring; Complete Time: 02:47 [facility] 02/11 01:52 Order name: Urine Dipstick-Ancillary (obtain specimen); Complete Time: 02:09 [facility] EC:02 Rate is 87 beats/min. Rhythm is regular. QRS [place] is Normal. MA interval is normal. QRS chiquis interval is normal. QT interval is normal. No Q waves. T waves are Normal. No ST changes noted. Clinical impression: NSR w/ Non-specific ST/T Changes and No evidence of ischemia. Interpreted by me. Reviewed by me. Administered Medications: 02:54 Drug: NS 0.9% 1000 ml Route: IV; Rate: 125 ml/hr; Site: right hand; fu 03:00 Drug: Aspirin Chewable Tablet 324 mg Route: PO; fu 04:00 Follow up: Response: No adverse reaction fu 03:49 Drug: Lovenox (enoxaparin) 1 mg/kg Route: Sub-Q; Site: abdomen; fu 04:53 Follow up: Response: No adverse reaction fu 04:24 Drug: Zofran (Ondansetron) 4 mg Route: IVP; Site: right hand; fu 04:53 Follow up: Response: Nausea is decreased fu Disposition Summary: 02/11/22 03:09 Hospitalization Ordered Hospitalization Status: Observation chiquis Provider: Lorraine Mejia cha Condition: Stable chiquis Problem: new chiquis Symptoms: have improved chiquis Bed/Room Type: Standard chiquis Location: Telemetry/MedSurg (observation)(02/11/22 05:51) mw Room Assignment: 209(02/11/22 05:51) Diagnosis - Chest pain, unspecified chiquis - Essential (primary) hypertension chiquis Forms: - Medication Reconciliation Form chiquis - SBAR form chiquis Signatures: Dispatcher [employer] EDMS Tila Kilpatrick RN RN mw Anderson, Corey, MD MD cha Umadhay, Felix, RN RN fu Calcote, Vanessa, RN RN Minerva Costa PA PA sb3 Corrections: (The following items were deleted from the chart) 04:34 03:09 Telemetry/MedSurg (observation) chiquis mw 04:34 03:09 chiquis mw 05:51 04:34 [facility] ER HOLD mw mw 05:51 04:34 ERHOLD- mw mw
[2022-02-11 03:13] LABS: Albumin 3.5 g/dL (3.4-5.0); Bilirubin Direct 0.1 mg/dL (0-0.2); Bilirubin Total 0.4 mg/dL (0.2-1.0); Magnesium 2.2 mg/dL (1.8-2.4); Potassium 3.6 mmol/L (3.5-5.1)
[2022-02-11 03:15] LABS: Troponin High Sensitivity 3.1 pg/mL (<58.9)
--- NOTE | 2022-02-11 03:20 | P.HP ---
Certification for Inpatient Patient admitted to: Observation With expected LOS: <2 Midnights Patient will require the following post-hospital care: None Practitioner: I am a practitioner with admitting privileges, knowledge of patient current condition, hospital course, and medical plan of care. Services: Services provided to patient in accordance with Admission requirements found in Title 42 Section 412.3 of the Code of Federal Regulations Patient History Date of Service: 02/11/22 Reason for admission: Chest Pain History of Present Illness: Patient is a 46-year-old female past medical history of seizure disorder and hypertension who presented to the ED with complaints of chest pain and heart palpitations. She states that she has been working a lot lately and has been experiencing dizziness and chest pain for about a week now but it was so bad that it woke her up tonight. Patient states that she has a history of mitral valve prolapse that spontaneously resolved about 1 year ago. She also has a history of familial hypercholesterolemia and hypertriglyceridemia that she controls with diet. EKG showed NSR and labs within normal limits. She was given 324 mg of aspirin and therapeutic dose Lovenox. ED provider wishes patient for observation. Allergies iodine Allergy (Verified 12/23/21 22:40) Anaphylaxis Latex, Natural Rubber Allergy (Verified 12/23/21 22:40) Hives/Rash promethazine [From Phenergan] Allergy (Verified 12/23/21 22:40) Hives tramadol Allergy (Verified 12/23/21 22:40) Nausea/Vomiting Home Medications: Lacosamide [Vimpat] 200 mg PO BID 12/24/21 Levetiracetam [Keppra] 750 mg PO BID 12/24/21 Levetiracetam [Keppra] 750 mg PO BID #60 tablet 12/26/21 clonazePAM [Klonopin] 0.5 mg PO TID #60 tablet 12/26/21 - Past Medical/Surgical History Diabetic: No -: seizures -: HTN -: Appy -: Tubal -: L knee Psychosocial/ Personal History: 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 - Family History Mother -: Cancer - Social History Smoking Status: Never smoker Alcohol use: No CD- Drugs: No Caffeine use: Yes Review of Systems General: Other (dizziness) Cardiovascular: Chest Pain Physical Examination - Physical Exam General: Alert, In no apparent distress HEENT: Atraumatic, PERRLA, Mucous membr. moist/pink, EOMI, Sclerae nonicteric Neck: Supple, 2+ carotid pulse no bruit, No LAD, Without JVD or thyroid abnormality Respiratory: Clear to auscultation bilaterally, Normal air movement Cardiovascular: Regular rate/rhythm, Normal S1 S2 Gastrointestinal: Normal bowel sounds, No tenderness Musculoskeletal: No tenderness Integumentary: No rashes Neurological: Normal speech, Normal strength at 5/5 x4 extr, Normal tone, Normal affect - Studies Laboratory Data (last 24 hrs) 02/11/22 02:34: PT 12.2, INR 1.11 02/11/22 02:34: WBC 11.0 H, Hgb 14.5, Hct 42.7, Plt Count 423 H 02/11/22 02:34: Sodium 139, Potassium 3.6, BUN 8, Creatinine 0.78, Glucose 96, Magnesium 2.2, Total Bilirubin 0.4, AST 15, ALT 25, Alkaline Phosphatase 74, Lipase 108 Assessment and Plan - Problems (Diagnosis) (1) Chest pain Current Visit: Yes Status: Acute Qualifiers: Chest pain type: unspecified Qualified Code(s): R07.9 - Chest pain, unspecified (2) Hypertension Current Visit: Yes Status: Chronic Qualifiers: Hypertension type: primary hypertension Qualified Code(s): I10 - Essential (primary) hypertension (3) Seizure disorder Current Visit: Yes Status: Chronic (4) Heart palpitations Current Visit: Yes Status: Acute - Plan -Initial troponin negative. Trend q6h -Aspirin daily. hold off on atorvastatin as patient states she had a reaction in the past. Lipid panel and triglycerides ordered. -Cardiology consult. Monitor on telemetry -TSH and echo ordered for morning. Patient states that she has a history of mitral valve prolapse that spontaneously resolved. -Lovenox for VTE ppx -Full code Discharge Plan: Home Plan to discharge in: 24 Hours - Advance Directives Does patient have a Living Will: No Does patient have a Durable POA for Healthcare: No - Code Status/Comfort Care Code Status Assessed: Yes (Full) Critical Care: No Time Spent Managing Pts Care (In Minutes): 50
[2022-02-11] MEDS ORDERED: ENOXAPARIN 80 MG/0.8 ML SQ ONE (03:37)
[2022-02-11] MEDS ORDERED: ONDANSETRON 4 MG/2 ML VIAL ONE (04:28)
[2022-02-11] MEDS ORDERED: ACETAMINOPHEN 500 MG TAB PO PRN (04:41)
[2022-02-11] MEDS ORDERED: clonazePAM 1 MG TAB PO ONE (04:43)
[2022-02-11] MEDS ORDERED: clonazePAM 0.5 MG TAB ONE (05:11)
[2022-02-11 06:56] VITALS: BMI 28.8
[2022-02-11] MEDS: ENOXAPARIN 40 MG/0.4 ML SQ SCH (09:00)
[2022-02-11] MEDS: ASPIRIN EC 81 MG TAB PO SCH (09:00)
[2022-02-11 09:12] LABS: Thyroid Stimulating Hormone 1.97 uIU/mL (0.360-3.740); Troponin High Sensitivity 3.1 pg/mL (<58.9)
--- NOTE | 2022-02-11 10:10 | P.PN ---
Subjective Date of Service: 02/11/22 Chief Complaint: Chest Pain Subjective: Improving (Patient is is improving has had no further chest pain however she has been having intermittent chest pain was evaluated by a furnace packer in [facility] has had a stress test done about a year ago pain radiates to the left side) Review of Systems 10-point ROS is otherwise unremarkable Physical Examination - Vital Signs Temperature: 98.1 F Blood Pressure: 109/62 Pulse: 81 Respirations: 18 Pulse Ox (%): 99 - Physical Exam General: Alert, Oriented x3 Respiratory: Clear to auscultation bilaterally, Friction rub Cardiovascular: Regular rate/rhythm Gastrointestinal: Normal bowel sounds, Soft and benign - Studies Laboratory Data (last 24 hrs) 02/11/22 02:34: PT 12.2, INR 1.11 02/11/22 02:34: WBC 11.0 H, Hgb 14.5, Hct 42.7, Plt Count 423 H 02/11/22 02:34: Sodium 139, Potassium 3.6, BUN 8, Creatinine 0.78, Glucose 96, Magnesium 2.2, Total Bilirubin 0.4, AST 15, ALT 25, Alkaline Phosphatase 74, Lipase 108 Assessment And Plan - Current Problems (Diagnosis) (1) Chest pain Current Visit: Yes Status: Acute Plan: Patient is 46 years of age admitted with intermittent chest pain vital signs stable troponins negative pain is now resolved denies any history of reflux stress test done was done in [facility] about a year ago by a furnace packer chest x-ray is clear EKG shows normal sinus rhythm as per the hospitalist note family history of strokes history of hypertension patient's heart score is only 3 very low risk for adverse outcome will await for cardiology opinion possible discharge today ambulate serial troponins are so far negative Qualifiers: Chest pain type: unspecified Qualified Code(s): R07.9 - Chest pain, u nspecified
--- NOTE | 2022-02-11 10:40 | P.DS ---
Admission Date: 02/11/22 Discharge Date: 02/11/22 Disposition: ROUTINE DISCHARGE Discharge Condition: GOOD Reason for Admission: Chest Pain - Problems (1) Chest pain Current Visit: Yes Status: Acute Qualifiers: Chest pain type: unspecified Qualified Code(s): R07.9 - Chest pain, unspecified Brief History of Present Illness: Patient is 46 years of age admitted for chest pain Hospital Course: Did well during the course of his stay see my progress note as per crystal finisher they were okay for her to go home as EKG did not show any acute changes troponins all negative follow-up with her crystal finisher the time of discharge patient was not experiencing any pain Vital Signs/Physical Exam: Temp Pulse Resp BP Pulse Ox 98.1 F 81 18 109/62 99 02/11/22 10:37 02/11/22 10:37 02/11/22 10:37 02/11/22 10:37 02/11/22 10:37 Laboratory Data at Discharge: WBC 11.0 K/uL (4.3-10.9) H 02/11/22 02:34 Hgb 14.5 g/dL (12.0-15.0) 02/11/22 02:34 Hct 42.7 % (36.0-45.0) 02/11/22 02:34 Plt Count 423 K/uL (152-406) H 02/11/22 02:34 PT 12.2 SECONDS (9.5-12.5) 02/11/22 02:34 INR 1.11 02/11/22 02:34 Sodium 139 mmol/L (136-145) 02/11/22 02:34 Potassium 3.6 mmol/L (3.5-5.1) 02/11/22 02:34 BUN 8 mg/dL (7-18) 02/11/22 02:34 Creatinine 0.78 mg/dL (0.55-1.3) 02/11/22 02:34 Glucose 96 mg/dL (74-106) 02/11/22 02:34 Magnesium 2.2 mg/dL (1.8-2.4) 02/11/22 02:34 Total Bilirubin 0.4 mg/dL (0.2-1.0) 02/11/22 02:34 AST 15 U/L (15-37) 02/11/22 02:34 ALT 25 U/L (12-78) 02/11/22 02:34 Alkaline Phosphatase 74 U/L (45-117) 02/11/22 02:34 Triglycerides 82 mg/dL (<150) 02/11/22 08:00 Cholesterol 144 mg/dL (<200) 02/11/22 08:00 HDL Cholesterol 37 mg/dL (40-60) L 02/11/22 08:00 Cholesterol/HDL Ratio 3.89 02/11/22 08:00 Lipase 108 U/L (73-393) 02/11/22 02:34 Home Medications: Lacosamide [Vimpat] 200 mg PO BID #60 02/11/22 Levetiracetam [Keppra] 750 mg PO BID #60 02/11/22 Lisinopril [Zestril] 20 mg PO DAILY #30 02/11/22 Metoprolol Tartrate 50 mg PO DAILY #30 02/11/22 clonazePAM [Klonopin] 0.5 mg PO TID PRN 02/11/22 New Medications: Levetiracetam [Keppra] 750 mg PO BID #60 Metoprolol Tartrate 50 mg PO DAILY #30 Lacosamide [Vimpat] 200 mg PO BID #60 Lisinopril [Zestril] 20 mg PO DAILY #30 Physician Discharge Instructions: Patient to contact her primary care provider for clonazepam Diet: Regular Followup: NONE,NONE [Primary Care Provider] -
[2022-02-11] MEDS: ONDANSETRON 4 MG/2 ML VIAL IV PRN ×2 (13:11→21:53)
[2022-02-11] MEDS ORDERED: NITROGLYCERIN 0.4 MG/TAB SL ONE ×2 (13:16→15:39)
[2022-02-11] MEDS ORDERED: SODIUM CHLORIDE 0.9% 10ML INJ IV PRN (15:32)
[2022-02-11] MEDS ORDERED: NITROGLYCERIN 0.4 MG/TAB SL PRN (15:41)
[2022-02-11] MEDS: PANTOPRAZOLE 40 MG INJ IVP SCH ×2 (15:46→21:46)
[2022-02-11] MEDS: IMIPRAMINE HCL 25 MG TAB PO SCH ×2 (16:01→21:46)
--- NOTE | 2022-02-11 16:18 | RAD REPORT ---
EXAM DESCRIPTION: CT - Thorax Wo Con - 02/11/2022 4:11 pm CLINICAL HISTORY: Recurrent chest pains COMPARISON: None FINDINGS: Chest Wall: No suspicious thyroid nodules or pathologic lymphadenopathy. Lungs: No acute abnormality. Pleura: No significant effusions or pneumothorax. Mediastinum/monica: No pathologic lymphadenopathy. Pulmonary arteries/Aorta: Limited evaluation without contrast. No aortic aneurysm. Heart: No significant pericardial effusion. Normal heart size. Upper abdomen: Cholecystectomy Bones: No acute abnormality. All CT scans are performed using dose optimization technique as appropriate and may include automated exposure control or mA/KV adjustment according to patient size. IMPRESSION: No acute findings within the chest.
--- NOTE | 2022-02-11 20:49 | RAD REPORT ---
EXAM DESCRIPTION: RAD - Chest Single View - 02/11/2022 2:29 am CLINICAL HISTORY: CHEST PAIN COMPARISON: None. TECHNIQUE: XR CHEST 1 VIEW 02/11/2022 1:52 AM CDT FINDINGS: Cardiac silhouette is normal in size. Lungs are clear without consolidation, atelectasis, mass or edema. There is no pleural effusion. There is no pneumothorax. There are no acute osseous fin dings. IMPRESSION: Clear lungs. Electronically signed by: Dorian Reyes MD 02/11/2022 4:09 AM CDT Due to temporary technical issues with the PACS/Fluency reporting system, reports are being signed by the in house radiologists without review as a courtesy to insure prompt reporting. The interpreting radiologist is fully responsible for the content of the report.
--- NOTE | 2022-02-11 23:04 | CON ---
Date of Consultation: 02/11/2022 Reason For Consultation: Admitted to Dr. Campa on 02/11/2022 for chest pain. I saw the patient o n 02/11/2022. History Of Present Illness: Ms. Nur is a 46-year-old woman, has had a history of mitral valve pr olapse, has had a previous stress test in the past and echocardiogram by loom inspector in [place], comes in with sharp stabbing chest pain that is severe, midsternal, associated with palpitation, some nausea, some vomiting, some diarrhea. Denied PND, orthopnea, pedal edema, or syncope. Denied any f ever or chills. The pain is not exertional and does not radiate. She has already ruled out. Her EK G is normal, chest x-ray is normal, and troponin is negative. Past Medical History: Includes hypertension, seizure disorder, and mitral valve prolapse. Allergies: SHE IS ALLERGIC TO IODINE, LATEX, TRAMADOL, AND COMPAZINE. Medications: At home include metoprolol, lisinopril, Vimpat, Keppra, and Klonopin. Her metoprolol d ose has been recently cut by half. Review of Systems: Negative. Social History: Negative. Family History: Noncontributory. Physical Examination: Vital Signs: Stable, afebrile. HEENT: Negative. Neck: Supple with no bruit. Chest: Clear. Cardiac: Revealed a regular rhythm and rate. No murmurs, gallops, or rubs. Abdomen: Negative. Extremities: Revealed no clubbing, cyanosis, or edema. Diagnostic Data: All normal. Impression And Plan: Chest pain and palpitation most likely secondary to mitral valve prolapse. I t hink she can go home on a higher dose of metoprolol and we will make that 50 b.i.d. and to take an ex tra 1 on an as-needed basis. I think she should have another echocardiogram and another stress test, but she can follow up with her loom inspector in [place]. Her other problems including hypertensio n and seizure disorders are stable at this point. The case was discussed with Dr. Campa. JEROD/MARCELO Voice ID: [id number] Report ID: [id number]
[2022-02-12] MEDS: PANTOPRAZOLE 40 MG INJ IVP SCH ×2 (08:58→20:25)
[2022-02-12] MEDS: ASPIRIN EC 81 MG TAB PO SCH (08:58)
[2022-02-12] MEDS: ENOXAPARIN 40 MG/0.4 ML SQ SCH (08:58)
--- NOTE | 2022-02-12 09:04 | P.DS ---
Admission Date: 02/11/22 Discharge Date: 02/12/22 Disposition: ROUTINE DISCHARGE Discharge Condition: GOOD Reason for Admission: Chest Pain - Problems (1) Chest pain Current Visit: Yes Status: Acute Qualifiers: Chest pain type: unspecified Qualified Code(s): R07.9 - Chest pain, unspecified Brief History of Present Illness: Atypical chest pain Hospital Course: Patient is 46 years of age admitted for chest pain atypical in nature seen by social secretary repeated EKGs with chest pain were all negative troponins negative possibility of esophageal spasm CT scan of the chest was also negative patient to take IV pantoprazole and [id number] peppermint oil the time of discharge patient was doing well had 1 episode of chest pain last night alert oriented x3 vital signs all stable chest clear cardiovascular some sounds normal charge instructions were printed out for the patient is to increase her metoprolol to 50 twice daily as per cardiology she does have mitral valve prolapse Vital Signs/Physical Exam: Temp Pulse Resp BP Pulse Ox 97.7 F 78 16 115/59 L 100 02/12/22 08:00 02/12/22 08:00 02/12/22 08:00 02/12/22 08:00 02/12/22 08:00 Laboratory Data at Discharge: WBC 11.0 K/uL (4.3-10.9) H 02/11/22 02:34 Hgb 14.5 g/dL (12.0-15.0) 02/11/22 02:34 Hct 42.7 % (36.0-45.0) 02/11/22 02:34 Plt Count 423 K/uL (152-406) H 02/11/22 02:34 PT 12.2 SECONDS (9.5-12.5) 02/11/22 02:34 INR 1.11 02/11/22 02:34 Sodium 139 mmol/L (136-145) 02/11/22 02:34 Potassium 3.6 mmol/L (3.5-5.1) 02/11/22 02:34 BUN 8 mg/dL (7-18) 02/11/22 02:34 Creatinine 0.78 mg/dL (0.55-1.3) 02/11/22 02:34 Glucose 96 mg/dL (74-106) 02/11/22 02:34 Magnesium 2.2 mg/dL (1.8-2.4) 02/11/22 02:34 Total Bilirubin 0.4 mg/dL (0.2-1.0) 02/11/22 02:34 AST 15 U/L (15-37) 02/11/22 02:34 ALT 25 U/L (12-78) 02/11/22 02:34 Alkaline Phosphatase 74 U/L (45-117) 02/11/22 02:34 Triglycerides 82 mg/dL (<150) 02/11/22 08:00 Cholesterol 144 mg/dL (<200) 02/11/22 08:00 HDL Cholesterol 37 mg/dL (40-60) L 02/11/22 08:00 Cholesterol/HDL Ratio 3.89 02/11/22 08:00 Lipase 108 U/L (73-393) 02/11/22 02:34 Home Medications: Bumetanide [Bumex] 1 mg PO DAILY #30 tablet 02/11/22 Lacosamide [Vimpat] 200 mg PO BID #60 02/11/22 Levetiracetam [Keppra] 750 mg PO BID #60 02/11/22 Lisinopril [Zestril] 20 mg PO DAILY #30 02/11/22 clonazePAM [Klonopin] 0.5 mg PO TID PRN 02/11/22 Metoprolol Succinate 50 mg PO BID 30 Days #60 tab.er.24h 02/12/22 Pantoprazole Sodium [Protonix] 40 mg PO DAILY #30 tablet. 02/12/22 New Medications: Bumetanide [Bumex] 1 mg PO DAILY #30 tablet Levetiracetam [Keppra] 750 mg PO BID #60 Metoprolol Succinate 50 mg PO BID 30 Days #60 tab.er.24h Pantoprazole Sodium [Protonix] 40 mg PO DAILY #30 tablet. Lacosamide [Vimpat] 200 mg PO BID #60 Lisinopril [Zestril] 20 mg PO DAILY #30 Physician Discharge Instructions: Patient to contact her primary care provider for clonazepam/patient to take peppermint oil [id number] for possible esophageal spasm I have faxed in a prescription for an acid reflux medication/patient to follow-up with her social secretary Patient to increase the metoprolol to 50 mg twice a day higher dose has been faxed to the pharmacy Diet: Regular Activity: Ad kira Followup: NONE,NONE [Primary Care Provider] -
[2022-02-12] MEDS: LACOSAMIDE 50 MG TABLET PO SCH ×2 (11:49→20:38)
[2022-02-12] MEDS: levETIRAcetam 500 MG TAB PO SCH ×2 (11:49→20:39)
[2022-02-12] MEDS: clonazePAM 0.5 MG TAB PO SCH ×2 (13:36→20:40)
--- NOTE | 2022-02-12 15:57 | P.PN ---
Date of Service: 02/12/22 PT was discharged was on her way out developed seizure like activity, Off meds for 1 day. REadmitted back again. Home meds resumed Feels lightheaded plan for dc home am. Meds faxed to pharmacy
[2022-02-12] MEDS ORDERED: LORazepam 2 MG/ML VIAL IV PRN (20:17)
[2022-02-12] MEDS: ONDANSETRON 4 MG/2 ML VIAL IV PRN (20:25)
[2022-02-12] MEDS ORDERED: LORazepam 2 MG/ML VIAL ONE (20:29)
[2022-02-12] MEDS: IMIPRAMINE HCL 25 MG TAB PO SCH (20:44)
[2022-02-12] MEDS: METOPROLOL TAR 50 MG TAB PO SCH (20:44)
[2022-02-13] MEDS: METOPROLOL TAR 50 MG TAB PO SCH (09:00)
--- NOTE | 2022-02-13 09:29 | P.PN ---
Subjective Date of Service: 02/13/22 Chief Complaint: Seizures Subjective: Improving (Patient does have seizures while on medication she is doing better) Review of Systems 10-point ROS is otherwise unremarkable General: Weakness Physical Examination - Vital Signs Temperature: 97.9 F Blood Pressure: 105/57 Pulse: 72 Respirations: 14 Pulse Ox (%): 96 - Physical Exam General: Alert, In no apparent distress, Oriented x3 Respiratory: Clear to auscultation bilaterally Cardiovascular: No edema, Regular rate/rhythm, Normal S1 S2 Assessment And Plan - Current Problems (Diagnosis) (1) Chest pain Current Visit: Yes Status: Acute Plan: No further chest pain since admission possible esophageal spasm advised patient to use some peppermint oil in addition to acid reflux medication Qualifiers: Chest pain type: unspecified Qualified Code(s): R07.9 - Chest pain, unspecified (2) Seizure disorder Current Visit: Yes Status: Chronic Plan: Patient has a seizure disorder and was off her medication for 2 days now has been resumed and she does get seizures at home when she gets stressed stable for discharge alert oriented responsive cooperative no valve no obvious focal deficit wants to go home vital signs are stable
[2022-02-13] MEDS: LACOSAMIDE 50 MG TABLET PO SCH (09:41)
[2022-02-13] MEDS: ENOXAPARIN 40 MG/0.4 ML SQ SCH (09:41)
[2022-02-13] MEDS: ASPIRIN EC 81 MG TAB PO SCH (09:41)
[2022-02-13] MEDS: levETIRAcetam 500 MG TAB PO SCH (09:42)
[2022-02-13] MEDS: clonazePAM 0.5 MG TAB PO SCH (09:43)
[2022-02-13] MEDS: PANTOPRAZOLE 40 MG INJ IVP SCH (09:43)
[2022-02-13 12:03] VITALS: BP 101/55; TEMP 98.2
[2022-02-13 17:05] VITALS: O2SAT 95
--- NOTE | 2022-02-14 08:03 | EKG ---
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
--- NOTE | 2022-02-14 08:04 | EKG ---
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
== END 2022-02-13 14:30 | disposition home or self-care (01) ==
LOC: ER 00:37 → ERHOLD 03:15 → 2ND 06:18 → UNDODISOB 02-12 10:55
PROVIDERS: ADMIT Internal Medicine; ATTEND Internal Medicine Sleep Medicine
DX: R07.89 Other chest pain (principal); G40.909 Epilepsy, unspecified, not intractable, without status epilepticus; I34.1 Nonrheumatic mitral (valve) prolapse; R00.2 Palpitations; I10 Essential (primary) hypertension; R11.0 Nausea; E78.01 Familial hypercholesterolemia; E78.1 Pure hyperglyceridemia; Z20.822 Contact with and (suspected) exposure to COVID-19; Z28.310 Unvaccinated for COVID-19; Z79.899 Other long term (current) drug therapy; Z88.5 Allergy status to narcotic agent; Z88.8 Allergy status to other drugs, medicaments and biological substances; Z91.013 Allergy to seafood; Z91.040 Latex allergy status; Z91.041 Radiographic dye allergy status; Z98.51 Tubal ligation status; Z80.9 Family history of malignant neoplasm, unspecified
CPT/HCPCS: 93005 ×2; 85025; 80048; 36415; 83735; 81025; 85610; 80061; 80076; 84443; 81003; 84484 ×2; 83690; 83880; 71250; 71045; 96372; 96374; 99285; U0003; C9113 ×5; J1650 ×2; G0378 ×5; J7030; J2405 ×4

== ENCOUNTER 2022-09-16 20:33 | Emergency (ER) | payer OTHER ==
--- OUTSIDE RECORDS SUMMARY | 2022-09-16 20:46 | XMS REPORT | Continuity of Care Document ---
:1975 Author Organization [facility] t Address [address] [place] [address] Care Team Providers Name Role Phone Declan Field Primary Care Physician [phone] LEANDRO OLIVARES Attending Clinician Unavailable Halima Vargas MD Attending Clinician HALIMA VARGAS Attending Clinician Unavailable Karissa Attending Clinician Unavailable Haroon Ramirez MD Attending Clinician Joe Boles DO Attending Clinician TEJAL RIZZO Attending Clinician Unavailable Florence HUNTLEY, [place] Attending Clinician Unavailable Starr Vinson RN Attending Clinician Unavailable LEANDRO OLIVARES M.D. Attending Clinician Unavailable VIRLA COFFEY Attending Clinician Unavailable Felicia Frost MD Attending Clinician LUCY NASCIMENTO M.D. Attending Clinician Unavailable Bladimir Brumfield MD Attending Clinician [phone] Obdulio Ragland MD Attending Clinician MD OBDULIO RAGLAND Attending Clinician Unavailable Inez García MD Attending Clinician [phone] JUDE MATHEWS M.D. Attending Clinician Unavailable Woo Greenberg DO Attending Clinician [phone] Bryant Hill MD Attending Clinician Clarice Brannon MD Attending Clinician Lj Thakkar Attending Clinician MD LJ THAKKAR Attending Clinician Unavailable Jose Elias Torres MD Attending Clinician Lydia Oden MD Attending Clinician [phone] Maribel Dickey MD Attending Clinician MD MARIBEL DICKEY Attending Clinician Unavailable MD INEZ GARCÍA Attending Clinician Unavailable Kevin Sood MD Attending Clinician Blaze Squires MD Attending Clinician MD BLAZE SQUIRES Attending Clinician Unavailable EVANGELINA PÉREZ Attending Clinician Unavailable ORESTES DUONG Attending Clinician Unavailable ORESTES DUONG Attending Clinician Unavailable BRITNI RODRIGUEZ Attending Clinician Unavailable THOMAS SCHWARZ Attending Clinician Unavailable AMANDA BENSON Attending Clinician Unavailable RAF JOY Attending Clinician Unavailable KVNG ROCK Attending Clinician Unavailable CLAIR DE LEON Attending Clinician Unavailable HERIBERTO LAMBERT Attending Clinician Unavailable Malorie Fishman Attending Clinician Nay Carlson Attending Clinician Arceneaux_C Admitting Clinician Unavailable OBDULIO RAGLAND Admitting Clinician Unavailable MD OBDULIO RAGLAND Admitting Clinician Unavailable CLARICE BRANNON Admitting Clinician Unavailable MD CLARICE BRANNON Admitting Clinician Unavailable LYDIA ODEN Admitting Clinician Unavailable MD LYDIA ODEN Admitting Clinician Unavailable MARCIA PATE Admitting Clinician Unavailable BLAZE SQUIRES Admitting Clinician Unavailable MD BLAZE SQUIRES Admitting Clinician Unavailable ORESTES DUONG Admitting Clinician Unavailable Payers Payer Name Policy Type Policy Number Effective Date Expiration Date Brannon richards [facility] [employer] PL[facility] [id number] 2020 STAR 00:00:00 CDC REVIEW [id number] 2020 00:00:00 Problems Condition Condition Condition Status Onset Resolution Last Treating Co mments Source Name Details Category Date Date Treatment Clinician Date Traumatic Traumatic Disease Active [facility] brain brain [address] injury injury 00:00: Hospita 00 l [...] l Dizziness Dizziness Disease Active [facility] 00:[facility]: Hospita 00 l Chest pain [...] 00:00: Hospita medication medication 00 l VAGINAL VAGINAL Diagnosis Active 2016-08-10 Memoria BLEEDING BLEEDING 7 09:01:00 l Active 23:00: [place] 02/12/2016 00 [facility] D25.9 - D25.9 - Diagnosis Active 2014-082015-06-08 Memoria "LEIOMYOMA "LEIOMYOMA 15:22:00 l OF UTERUS, OF UTERUS, 00:01: He adeliaann UNSPECIFI" UNSPECIFI" 00 Active 06/08/2015 SOFIA Antonio VAGINAL VAGINAL Diagnosis Active 2014-12-21 Memoria BLEEDING- BLEEDING- 09-03 13:01:00 l 6 WKS PG 6 WKS PG 00:00: Jordy n Active 09/03/2014 [facility] CONSTIPATI CONSTIPAT Diagnosis Active 2014-12-14 Memoria ON, NAUSEA ION, 12 09:23:00 l NAUSEA 00:00: [place] Active 00 08/24/2014 [facility] History of History of Problem Resolve UT [...] Fibroids Fibroids Problem Active [facility] Physici ans No known No known Disease Unive rs active active ity of problems problems [facility] Encounter Encounter Problem Active [facility] for for [...] Active [facility] vaginosis vaginosis Phys ici ans 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 Encounter Encounter Problem Active [facility] for for [...] an s on on exertion exertion Anemia Anemia Problem Resolve 2016-02-16 Mem oria (disorder) (disorder) d 00:25:42 l Resolved Antonio Problem 02/16/2016 [facility] Migraine Migraine Problem Resolve 2016-02-16 Memoria (disorder) (disorder) d 00:25:42 l Resolved [place] Problem 02/16/2016 [facility] Mitral Mitral Problem Resolve 2016-02-16 Mem oria valve valve d 00:25:42 l prolapse prolapse Jordy n (disorder) (disorder) Resolved Problem 02/16/2016 [facility] Anxiety Anxiety Problem Active 2016-02-16 M emoria (finding) (finding) 00:25:42 l Active [place] Problem 02/16/2016 [facility] Bipolar Bipolar Problem Active 2016-02-16 Me moria (qualifier (qualifier 00:25:42 l value) value) Antonio Active Problem 02/16/2016 [place] Congestive Congestiv Problem Active 2016-02-16 Memoria heart e heart 00:25:42 l failure failure [place] (disorder) (disorder) Active Problem 02/16/2016 [facility] Depressive Depressiv Problem Active 2016-02-16 Memoria disorder e disorder 00:25:42 l (disorder) (disorder) He rmann Active Problem 02/16/2016 [facility] Gastroesop Gastroeso Problem Active 2016-02-16 Memoria hageal phageal 00:25:42 l reflux reflux Antonio disease disease (disorder) (disorder) Active Problem 02/16/2016 [facility] Heart Heart Problem Active 2016-02-16 Memor ia failure failure 00:25:42 l (disorder) (disorder) He rmann Active Problem 02/16/2016 [facility] Hypertensi Hypertens Problem Active 2016-02-16 Memoria ve kellee 00:25:42 l disorder, disorder, Herm alem systemic systemic arterial arterial (disorder) (disorder) Active Problem 02/16/2016 [facility] Multiple Multiple Problem Active 2016-02-16 Memoria sclerosis sclerosis 00:25:42 l (disorder) (disorder) He rmann Active Problem 02/16/2016 [facility] Osteoarthr Osteoarth Problem Active 2016-02-16 Memoria itis ritis 00:25:42 l (disorder) (disorder) He rmann Active Problem 02/16/2016 [facility] Drug Drug Problem Active 2016-02-16 Memor ia overdose overdose 00:25:42 l (disorder) (disorder) He [place]mann Active Problem 02/16/2016 [facility] Rheumatoid Rheumatoi Problem Active 2016-02-16 Memoria arthritis d 00:25:42 l (disorder) arthritis Her sarkar (disorder) Active Problem 02/16/2016 [facility] 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 00:25:42 l (disorder) (disorder) He rmann Active Problem 02/16/2016 [facility] Uterine Uterine Problem Active 2016-02-16 Me moria leiomyoma leiomyoma 00:25:42 l (disorder) (disorder) He rmann Active Problem 02/16/2016 [facility] Urinary Urinary Problem Active 2016-02-16 M emoria tract tract 00:25:42 l infectious infectious He rmann disease disease (disorder) (disorder) Active Problem 02/16/2016 [facility] History of Past Illness Condition Condition Condition Status Onset Resolution Last Treating Co mments Source Name Details Category Date Date Treatment Clinician Date Discharge Discharge Problem 2016-02-16 2016-02-16 Memoria Diagnosis: Diagnosis: 02-12 00:25:42 00:25:42 l Anemia, Anemia, 05:00: [place] unspecifie unspecifie 00 d d 02/13/2016 02/16/2016 [facility] Discharge Discharge Problem 2016-02-16 2016-02-16 Memoria Diagnosis: Diagnosis: 02-12 00:25:42 00:25:42 l Abnormal Abnormal 05:00: Jordy n uterine uterine 00 and and vaginal vaginal bleeding, bleeding, unspecifie unspecifie d d 02/13/2016 02/16/2016 [facility] Discharge Discharge Problem 2014-09-06 2014-09-06 Memoria Diagnosis: Diagnosis: 09-04 16:01:45 16:01:45 l Vaginal Vaginal 06:00: Antonio bleeding bleeding 00 09/04/2014 09/06/2014 [facility] Discharge Discharge Problem 2014-09-06 2014-09-06 Memoria Diagnosis: Diagnosis: 09-04 16:01:45 16:01:45 l Dysmenorrh Dysmenorrh 06:00: [place] ea ea 00 09/04/2014 09/06/2014 [facility] Discharge Discharge Problem 2014-08-26 2014-08-26 Memoria Diagnosis: Diagnosis: 1- 17:22:44 17:22:44 l Nausea Nausea 06:00: [place] 08/24/201408/26/2014 [facility] Discharge Discharge Problem 2014-08-26 2014-08-26 Memoria Diagnosis: Diagnosis: 1 17:22:44 17:22:44 l Constipati Constipati 06:00: He r[place] on on 00 08/24/2014 08/26/2014 [facility] Allergies, Adverse Reactions, Alerts Allergy Allergy Status Severity Reaction(s) Onset Inactive Treating Comm ents Source Name Type Date Date Clinician Iodine Propensi Active Hives 2023-0 Univers ty to 08-14 ity of adverse 00:00: [place] reaction 00 Medical s [facility] Latex Propensi Active Rash 3-0 Univers ty to 08-14 ity of adverse 00:00: [place] reaction 00 Medical s Branch Levoflox Propensi Active Swelling 2022-0 Univ ers acin ty to 08-14 ity of adverse 00:00: [place] reaction 00 Medical s Branch Prometha Propensi Active Hives 2022-0 Univer s zine ty to 08-14 ity of adverse 00:00: [place] reaction 00 Medical s Branch Tramadol Propensi Active Other - See 2022-0 migraine s Univers ty to comments 08-14 ity of adverse 00:00: [place] reaction 00 Medical s Branch Vancomyc Propensi Active Rash 2022-0 Univer s in ty to 08-14 ity of adverse 00:00: [place] reaction 00 Medical s Branch IODINE DRUG Active Hives 2022-0 Univers INGREDI 08-14 ity of 00:00: [place] 00 Medical Branch LATEX DRUG Active Rash 2022-0 Univers INGREDI 08-14 ity of 00:00: [place] 00 [facility] LEVOFLOX DRUG Active Swelling 2022-0 Univer s ACIN INGREDI 08-14 ity of 00:00: [place] 00 Medical Branch PROMETHA DRUG Active Hives 2022-0 Univers ZINE INGREDI 08-14 ity of 00:00: [place] 00 [facility] TRAMADOL DRUG Active Other-Cmnt 2022-0 Univ ers INGREDI 08-14 ity of 00:00: [place] 00 [facility] Branch VANCOMYC DRUG Active Hives 2022-0 Univers IN INGREDI 08-14 ity of 00:00: [place] 00 [facility] Povidone Allergy Active 2020-0 UT Iodine to 04-25 Health substanc 00:00: e 00 Latex Allergy Active 2020-0 UT to 13 Health substanc 00:00: e 00 Nsaids Propensi Active 2020-0 UT ty to 04-25 Health adverse 00:00: reaction 00 s Citalopr Propensi Active Itching 2020-0 Burning Meth ketty am ty to [address] adverse 00:00: Hospita reaction 00 l s to drug Citalopr Propensi Active Itching 2020-0 Burning UT am ty to 204 [facility] adverse 00:00: ng reaction 00 skinBurni s ng skin Tramadol Propensi Active Seizure 2017- migraines Me thodi ty to 09-23 st adverse 00:00: Hospita reaction 00 l s to drug Iodine Drug [facility] Containi 00 Center ng Products Ketorola Drug Active [address] [facility]olera [facility] nce 00:[facility]: Medical 00 Center Ketorola Propensi Active Other (See 20170 migraines Methodi c ty to Comments) 11-07 st adverse 00:00: Hospita reaction 00 l s to drug IODINE Allergy Active High Anaphylaxis 2016-0 [facility] AND 11-07 IODIDE 00:00: CONTAINI 00 NG PRODUCTS KETOROLA Allergy Active 2016-0 [facility] C 11-07 00:00: 00 Povidone Propensi Active Anaphylaxis 2017-0 M ethodi -Iodine ty to 10-19 st adverse 00:00: Hospita reaction 00 l s to drug Iodine Propensi Active Anaphylaxis 2017-0 [facility] And ty to 10-19 st Iodide adverse 00:00: Hospita Containi reaction 00 l ng s to Products drug Latex Propensi Active Hives 2017-0 Methodi ty to 10-19 st adverse 00:00: Hospita reaction 00 l s to drug Shellfis Propensi Active Anaphylaxis 2017-0 M ethodi h ty to 10-19 st Derived adverse 00:00: Hospita reaction 00 l s to drug Iodine Propensi Active Anaphylaxis 2017-0 Met [facility]odi And ty to 10-19 st Iodide adverse 00:00: Hospita Containi reaction 00 l ng s to Products drug Tramadol Propensi Active 2017-[address] [facility] to 09[facility] adverse 00:00: Medical reaction 00 Center s Vancomyc Propensi Active 2017-[address] in ty to 09-25 [facility] Analogue adverse 00:00: Medical s reaction 00 Center s Vancomyc Propensi Active Hives 2017-0 Method i in ty to 09-25 st Analogue adverse 00:00: Hospita s reaction 00 l s to drug TRAMADOL Allergy Active 2016-0 [facility] 09-25 00:00: 00 VANCOMYC Allergy Active 2016-0 [facility] IN 09-25 ANALOGUE 00:00: S 00 Povidone Propensi Active 2013- [facility] [...] Active 2013-08 [facility] ZINE 0-03 00:00: 00 Betadine Betadine Active Memori a Skin Skin 8-09 l 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 00:00: Jordy roberto 00 iodinate iodinate Active Memori a d d 8-09 l radiotrgt.us radiocon 00:00: Jordy roberto trast trast 00 dyes dyes Levaquin Levaquin Active Memori a 8-09 l 00:00: [place] 00 Phenerga Phenerga Active Memori a n n 8-09 l 00:00: [place] 00 Betadine Allergy Active UT SOLN to drug Physici (finding ans ) Latex Allergy Active UT Exam to drug Physici Gloves (finding ans MISC ) Levaquin Allergy Active UT to drug Physici (finding ans ) Phenerga Allergy Active UT n to drug Physici (finding ans ) Vancomyc Allergy Active UT in HCl to drug Physici SOLR (finding ans ) Food Food Active Memoria Seafood Seafood l [place] Latex Latex Active Memoria l [place] morphine morphine Active Memori a l [place] vancomyc vancomyc Active Memori a in in l [place] Elavil Elavil Active Memoria l [place] STEROIDS Allergy Active [facility] Family History Family Member Diagnosis Comments Start Date Stop Date Source Family member No history of [facility] Maternal aunt Cancer [facility] Maternal aunt Melanoma [facility] Maternal grandfather Stroke [facility] Natural mother Diabetes [facility] Natural sister Stroke [facility] Maternal uncle Leukemia [facility] Social History Social Habit Start Date Stop Date Quantity Comments Source History SDOH Sabianism Alcohol Frequency Hospita l History SDOH Sabianism Alcohol Std Hospital Drinks History SDOH Sabianism Alcohol Binge Hospital Exposure to 2022-08-04 2022-08-[address] [facility] SARS-CoV-2 00:00:00 20:42:00 [facility] (event) Branch Alcohol intake 2021-06-29 2021-06-29 Current non-drinker M ethodist 00:00:00 00:00:00 of alcohol [facility] (finding) Alcohol Comment 2018-08-02 2018-08-[address] 00:00:00 00:00:00 Hospital Tobacco use and 2014-05-15 2014-05-[address] [facility] exposure 00:00:00 00:00:00 [facility] Sex Assigned At [address] [facility] 00:00[facility] Smoking Status Start Date Stop Date Source Tobacco smoking consumption [facility] Branch Social History [facility] Medications Ordered Filled Start Stop Current Ordering Indication Dosage Frequency Signature Comments Components Source Medication Medication Date Date Medication? Clinician (SIG) Name Name ketorolac 2022- Yes 30mg 30 mg, Unive rs (TORADOL) 08-15 Slow IV ity of injection 05:30: 17:29 [place], [place] 30 mg 00 :00 ONCE, 1 Medical dose, On Branch Sun08/14/22 at 2330, Routine SUMAtriptan 2022- No 50mg 50 mg, Uni vers (IMITREX) 08-15 Oral, ity of tablet 50 05:30: 04:54 ONCE, 1 [place] mg 00 :00 dose, On Medical Sun08/14/22 Branch at 2330, Routine NaCl 0.9% 2022- No 1000mL at 999 Uni vers (NS) bolus 1-03 01-03 mL/hr, ity of infusion 04:00: 04:32 1,000 mL, Donal as 1,000 mL 00 :00 IV Medical Infusion, Branch ONCE, 1 dose, On Sun08/14/22 at 2200, STAT levETIRAcet 2022- No 1000mg 1,000 mg, Univers am (KEPPRA) 08-15 IV ity of in NACL 03:00: 04:33 Piggyback, Donal as (ISO-OS) 00 :00 ONCE, 1 Medical 1,000 dose, On Branch mg/100 mL Sun08/14/22 RTU at 2100, Administer over 15 Minutes, 100 mL levETIRAcet 0 Yes [id number] 1000mg Take 1 Univers am (KEPPRA) - tablet by ity of 1,000 mg 00:00: mouth in [place] tablet 00 the and 1 tablet in the evening. Lacosamide Yes [id number] 200mg Take 1 Univers (VIMPAT) - tablet by ity of 200 mg 00:00: mouth in [place] tablet 00 the morning Branch and 1 tablet in the evening. ALPRAZolam Yes [id number] .25mg Take 1 Univers (XANAX) - tablet by ity of 0.25 mg 00:00: mouth in [place] tablet 00 the and 1 tablet at noon and 1 tablet in the evening. acetaminoph 2020-08- No [id number] 1{tbl} Q6H Take 1 Methodi en-codeine 08-[address] (TYLENOL 00:00: 05:59 mouth Hospita WITH 00 :00 every 6 l CODEINE #3) (six) 300-30 mg hours as per tablet needed for moderate pain for up to 5 days .acute pain. acetaminoph 2020-08 No [id number] 1{tbl} Q6H Take 1 Methodi en-codeine 08-[address] (TYLENOL 00:00: 05:59 mouth Hospita WITH 00 :00 every 6 l CODEINE #3) (six) 300-30 mg hours as per tablet needed for moderate pain for up to 5 days .acute pain. No known No No known UT medications -13 medication He alth 12:13: s 10 No known No No known UT medications - medication He alth 12:13: s 10 bumetanide Yes [id number] 2mg QD Take 1 U T (Bumex) 2 - tablet (2 Healt h MG tablet 00:00: mg total) 00 by mouth 1 (one) time each day. lisinopril Yes [id number] 2.5mg QD Take 1 UT 2.5 MG 04-25 tablet Health tablet 00:00: (2.5 mg 00 total) by mouth 1 (one) time each day. metoprolol Yes [id number] 50mg Q.5D Take 1 U T succinate - tablet (50 Heal th XL 00:00: mg total) (Toprol-XL) 00 by mouth 2 50 MG 24 hr (two) tablet times a day. lisinopril 2020- No 2.5mg 2.5 mg. UT 2.5 MG -02-08 Health tablet 19:34: 00:00 53 :00 metoprolol 2020- No 50mg 50 mg. UT succinate -02-08 Health XL 19:34: 00:00 (Toprol-XL) 53 :00 50 MG 24 hr tablet lisinopril Yes [id number] 2.5mg QD Take 1 UT 2.5 MG -29 tablet Health tablet 00:00: (2.5 mg 00 total) by mouth 1 (one) time each day. metoprolol Yes [id number] 50mg Q.5D Take 1 U T succinate -29 tablet (50 Heal th XL 00:00: mg total) (Toprol-XL) 00 by mouth 2 50 MG 24 hr (two) tablet times a day. lisinopril 2020- No [id number] 2.5mg QD Take 1 UT 2.5 MG -04-25 tablet Health tablet 00:00: 00:00 (2.5 mg 00 :00 total) by mouth 1 (one) time each day. metoprolol 2020- No [id number] 50mg Q.5D Take 1 UT succinate -04-25 tablet (50 Hea lth XL 00:00: 00:00 mg total) (Toprol-XL) 00 :00 by mouth 2 50 MG 24 hr (two) tablet times a day. aspirin 325 0 Yes 325mg Take 325 [...] a l 20-100 day. Last mcg/actuati used February on 2019. inhaler linaCLOtide Yes 72ug QD Take 72 [...] capsule 59 l busPIRone 0 Yes 15mg Q.[id number] Take 15 mg [facility]i (BUSPAR) 10 4-26 [id number] mouth [address] MG tablet 16:32: 3D (three) Hospi ta 59 times a l day. ondansetron Yes 8mg Q8H Take 8 mg M ethodi ODT 4-[address] (ZOFRAN-ODT 16:32: every 8 Hos denise ) 8 MG 59 (eight) l disintegrat hours as ing tablet needed for nausea or vomiting. aspirin 325 Yes 325mg Take 325 M [...] capsule 59 l busPIRone 0 Yes 15mg Q.[id number] Take 15 mg [facility] (BUSPAR) 10 - [id number] by mouth 3 st MG tablet 11:32: [...] mouth Hospita tablet 59 daily. l BUMETanide Yes 2mg Q.5W Take 2 mg Me thodi (BUMEX) 2 4-[address] MG tablet 11:32: (two) Hospita 59 times a l week. FLUoxetine Yes 10mg QD Take 10 mg M ethodi (PROzac) 10 4-[address] MG capsule 11:32: daily. Hospi ta 59 l prazosin Yes 5mg QD Take 5 mg Meth ketty (MINIPRESS) 4-[address] 5 MG 11:32: nightly. Hospita capsule 59 l busPIRone Yes 15mg Q.[id number] Take 15 mg [facility] (BUSPAR) 10 - [id number] by mouth 3 st MG tablet 11:32: 3D (three) Hospi ta 59 times a l day. ondansetron Yes 8mg Q8H Take 8 mg M ethodi ODT 4-[address] (ZOFRAN-ODT 11:32: every 8 Hos denise ) 8 MG 59 (eight) l disintegrat hours as ing tablet needed for nausea or vomiting. aspirin 325 Yes 325mg Take 325 M [...] mouth Hospita tablet 59 daily. l BUMETanide Yes 2mg Q.5W Take 2 mg Me thodi (BUMEX) 2 -[address] MG tablet 11:32: (two) Hospita 59 times a l week. FLUoxetine Yes 10mg QD Take 10 mg M ethodi (PROzac) 10 - by mouth st MG capsule 11:32: daily. Hospi ta 59 l prazosin Yes 5mg QD Take 5 mg Meth ketty (MINIPRESS) 12-[address] 5 MG 11:32: nightly. Hospita capsule 59 l busPIRone Yes 15mg Q.[id number] Take 15 mg [facility] (BUSPAR) 10 12-06 [id number] [address] mouth [address] MG tablet 11:32: 3D (three) Hospi ta 59 times a l day. ondansetron Yes 8mg Q8H Take 8 mg M ethodi ODT 12-[address] (ZOFRAN-ODT 11:32: every 8 Hos denise ) 8 MG 59 (eight) l disintegrat hours as ing tablet needed for nausea or vomiting. bumetanide 2020- No 2mg QD Take 2 mg U T (Bumex) 2 12-0613 by mouth 1 Hea lth MG tablet 00:00: 00:00 (one) time 00 :00 each day. levETIRAcet 2020- No 750mg Q.5D Take 1 Me thodi am (KEPPRA) 12-06- tablet st 750 MG 00:00: 04:59 (750 mg Hospita tablet 00 :00 total) by l mouth 2 (two) times a day for 30 days. levETIRAcet 2020- No 750mg Q.5D Take 1 Me thodi am (KEPPRA) 12-[address] 750 MG 00:00: 04:59 (750 mg Hospita tablet 00 :00 total) by l mouth 2 (two) times a day for 30 days. levETIRAcet 2020- No 750mg Q.5D Take 1 Me thodi am (KEPPRA) 12-06 05-[address] 750 MG 00:00: 04:59 (750 mg Hospita tablet 00 :00 total) by l mouth 2 (two) times a day for 30 days. lacosamide 2020- No 200mg Q.5D Take 1 Met hodi (Vimpat) 11-17- tablet st 200 mg 00:00: 04:59 (200 [...] tablet hours for 10 days. acetaminoph No 1{tbl} Q6H Take 1-2 Methodi en-codeine 3-24 03-[address] (TYLENOL 00:00: 04:59 mouth Hospita WITH 00 :00 every 6 l CODEINE #3) (six) 300-30 mg hours as per tablet needed for moderate pain for up to 5 days .acute pain. acetaminoph No 1{tbl} Q6H Take 1-2 Methodi en-codeine 3-24 03-[address] (TYLENOL 00:00: 04:59 mouth Hospita WITH 00 :00 every 6 l CODEINE #3) (six) 300-30 mg hours as per tablet needed for moderate pain for up to 5 days .acute pain. acetaminoph No 1{tbl} Q6H Take 1-2 Methodi en-codeine 3-24 03-[address] (TYLENOL 00:00: 04:59 mouth Hospita WITH 00 :00 every 6 l CODEINE #3) (six) 300-30 mg hours as per tablet needed for moderate pain for up to 5 days .acute pain. lacosamide 2020- No 200mg Q.5D Take 1 Met hodi (VIMPAT) 2- 03-[address] 200 mg 00:00: 05:59 (200 mg Hospita tablet 00 :00 total) by l mouth 2 (two) times a day for 30 days. levETIRAcet 2020- No 500mg Q.5D Take 1 Me thodi am (KEPPRA) 2-[address] 500 MG 00:00: 05:59 (500 [...] Q.5D Take 1 Me thodi am (KEPPRA) 2-[address] 500 MG 00:00: 05:59 (500 [...] Q.5D Take 1 Me thodi am (KEPPRA) 2-[address] 500 MG 00:00: 05:59 (500 [...] 100mg Q.5D Take 100 M ethodi (VIMPAT) 09-12-[address] 100 mg 00:12: 00:00 [...] QD Take 1 Meth ketty (Xanax) 0.5 30 -[address] MG tablet 00:00: 00:00 (0.5 [...] times a day for 30 days. ALPRAZolam No .5mg QD Take 1 Meth ketty (Xanax) 0.5 09-11-[address] MG tablet 00:00: 00:00 (0.5 mg Hosp arcenio 00 :00 total) by l mouth nightly as needed for anxiety or sleep for up to 5 days. amoxicillin 2019-08- No 1{tbl} Q12H Take 1 M ethodi -pot 2- 12-[address] clavulanate 00:00: 05:59 mouth Hosp arcenio (AUGMENTIN) 00 :00 every 12 l 875-125 mg (twelve) per tablet hours for 10 days. metoprolol 2020- No 100mg Take 100 M ethodi tartrate 05-[address] (LOPRESSOR) 17:49: 00:00 mouth. Hos denise 100 mg 43 :00 l tablet morPHINE 2019- No 30mg Q.5D Take 30 mg Me thodi (MS CONTIN) 05-08 by mouth 2 s t 30 MG 12 hr 17:49: 00:00 (two) Hosp arcenio tablet 43 :00 times a l day. Extended Release HYDROcodone 2019- No Q.5D Take by Me thodi -acetaminop 05-[address] hen (NORCO) 17:49: 00:00 (two) Hosp arcenio 5-325 mg 43 :00 times a l per tablet day. diazePAM 2019-2019- No 10mg Q.[id number] Take 10 mg Methodi (VALIUM) 5 05-08 [id number] mouth [address] MG tablet 17:49: 00:00 3D (three) Hosp arcenio 43 :00 times a l day as needed for anxiety. penbutolol 2019-0 2020- No 20mg QD Take 20 mg [facility] sulfate 05-[address] (PENBUTOLOL 17:49: 00:00 daily. Hos denise ORAL) 43 :00 l ondansetron 2019-0 2020- No 4mg Q8H Take 4 mg [facility] ODT 05-[address] (ZOFRAN-ODT 17:49: 00:00 every 8 Ho spita ) 4 MG 43 :00 (eight) l disintegrat hours as ing tablet needed for nausea or vomiting. methocarbam 2019- 2020- No 750mg Q.5D Take 750 [facility] ol 05-[address] (ROBAXIN) 17:49: 00:00 mouth 2 Hosp arcenio 750 MG 43 :00 (two) l tablet times a day. metoprolol 2019-2019- No 50mg Q.5D Take 50 mg [facility] succinate 05-[address] XL 16:17: 00:00 (two) Hospita (TOPROL-XL) 20 :00 times a l 50 mg 24 hr day. tablet lisinopriL 2019-2019- No 2.5mg QD Take 2.5 M ethodi (PRINIVIL) 05-[address] 2.5 mg 16:17: 00:00 mouth Hospita tablet 20 :00 daily. l butalbital- 2019- 2020- No 1{tbl} Q4H Take 1 M ethodi acetaminoph 05-[address] en-caff 00:00: 04:59 mouth Hospita (FIORICET) 00 :00 every 4 l 50-325-40 (four) mg per hours as tablet needed for headaches or migraine for up to 30 days. lactulose 2019-0 2020- No 20g [id number] Take 30 mL [facility] 20 gram/30 05-08 [id number] (20 g s t mL solution 00:00: 04:59 3D total) by Hospita 00 :00 mouth 3 l (three) times a day as needed (CONSTIPAT ION) for up to 30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 malignant neoplasm of [facility]ica l Center cervix (procedure) [code = 194672848] Future Scheduled [address] [facility] 00:00:00 malignant neoplasm of Medica l Center cervix (procedure) [code = 443972523] Future Scheduled 1991 HEPATITIS C [facility]CRE[facility] 00:00:00 [code = HEPATITIS C Medical Center SCREENING] Future Scheduled 1991 HEPATITIS C [facility]CRE[facility] 00:00:00 [code = HEPATITIS C Medical Center SCREENING] Future Scheduled 1991 HEPATITIS C [facility]CRE[facility] 00:00:00 [code = HEPATITIS C Medical Center SCREENING] Future Scheduled 1985 COVID-19 VACCINE (1) [facility] Test 00:00:00 [code = COVID-[address] VACCINE (1)] Future Scheduled 1985 COVID-19 VACCINE (1) [facility] Test 00:00:00 [code = COVID-[address] VACCINE (1)] Future Scheduled 1974-03-27 COVID-19 VACCINE (#1) [facility] 00:00:00 [code = COVID-[address] VACCINE (#1)] Future Scheduled [address] [facility] 00:00:00 (combo) [code = CT Medical C enter Colonography (combo)] Future Scheduled [address] [facility] 00:00:00 malignant neoplasm of Medica l Center colon (procedure) [code = 150201962] Future Scheduled [address] [facility] Test 00:00:00 malignant neoplasm of [facility]ica l Center colon (procedure) [code = 446765368] Future Scheduled [address] [facility] Test 00:00:00 malignant neoplasm of [facility]ica l Center colon (procedure) [code = 229490953] Future Scheduled [address] [facility] Test 00:00:00 malignant neoplasm of Medica l Center colon (procedure) [code = 947723904] Future Scheduled 1973 Sigmoidoscopy [code = [facility] Sigmoidoscopy] Medical Krista r Future Scheduled [address] [facility] 00:00:00 [facility] colon (procedure) [code = 634017600] Future Scheduled [address] [facility] Test 00:00:00 malignant neoplasm of [facility] colon (procedure) [code = 651129015] Future Scheduled COVID-19 VACCINE (1) Met [facility] Test [code = COVID-19 VACCINE (1)] Future Scheduled Hepatitis C screening [facility] Test (procedure) [code = 767083756] Future Scheduled Screening [facility] Test malignant neoplasm of cervix (procedure) [code = 249436169] Future Scheduled INFLUENZA VACCINE Method ist Hospital Test [code = INFLUENZA VACCINE] Encounters Start End Encounter Admission Attending Care Care Encounter Source Date/Time Date/Time Type Type Clinicians Facility Department ID 2021-04-25 Outpatient [facility] [id number] [place] 12:28:46 [facility] 2020-12-18 Outpatient [facility] [id number] [place] 04:17:31 [facility] 2022-08-14 2022-08-14 [facility] [id number] Univers 20:40:00 23:10:00 Halima GALLARDO 350.1.13.10 [facility] 4.2.7.2.686 [facility] [id number] [address] 2022-08-14 2022-08-14 Emergency [facility] [id number] Univers 20:40:00 23:10:00 [facility] 2022-05-16 2022-05-16 Outpatient Arceneaux_C VFP VFP 221 [id number] Village 00:00:00 00:00:00 [id number] Family Practic e 2021-06-29 2021-06-29 Emergency James, 1.2.840.1 [id number] Methodi 10:17:00 12:01:00 Haroon Young [address]409.1.[address] 3.430.2.7 Hospit a .3.173235 l .8 2021-06-29 2021-06-29 Travel 1.2.840.1 1.2.214.874 0719 [id number] Methodi 00:00:00 00:00:[address] 3.430.2.7 0.2.7.3.698 Ho spita .3.768953 084.8 l .8 2021-05-05 2021-05-06 Emergency ER [place], [facility] [id number] 20:22:00 01:24:00 Joe aLi [facility] 2021-05-05 2021-05-05 Emergency ER [facility] Emergency [id number] [facility] 20:07:00 20:07:00 2021-05-05 2021-05-05 Travel [facility] [id number] [facility] 2021-04-25 2021-04-25 Office VINCE Olivares [facility] 1.2.840.114 [id number] [place] 10:00:00 12:28:43 [facility] 350.1.13.58 [facility] PLAZA 4 9.2.7.2.686 [id number] 4 2021-02-18 2021-02-18 Emergency E MATTHIAS, [facility] 7503 [facility] 08:39:00 12:51:00 TEJAL 2021-02-08 2021-02-08 Orders Waleska Henriquez [facility] 1.2.840.11 4 [id number] [place] 00:00:00 00:00:00 Only Waleska Henriquez [facility] 350.1.13.58 Health PLAZA 4 9.2.7.2.686 [id number] 4 2021-02-08 2021-02-08 Orders VINCE Henriquez [facility] 1.2.840.114 [id number] 00:00:00 00:00:00 Only Waleska MED 350.1.13.58 PLAZA 4 9.2.7.2.686 [id number] 4 2020-12-20 2020-12-20 Telephone Vinson, 1.2.840.1 [id number] 2100 [id number] Methodi 00:00:00 00:00:[address] 3.430.2.7 Hospit a .3.708387 l .8 2020-12-16 2020-12-16 Appointmen VINCE OLIVARES [facility] [id number] [place] 11:00:00 11:00:00 t; LEANDRO OLIVARES, Advanced P jn PANTOJA M.D. [facility] 2020-12-14 2020-12-14 Telephone Vinson, 1.2.840.1 [id number] [id number] Methodi 00:00:00 00:00:[address] 3.430.2.7 Hospit a .3.326642 l .8 2020-12-07 2020-12-08 Outpatient E ERLINDA, [facility] PUL 7502 MHSW 17:43:00 13:15:00 VIRAL 2020-12-08 2020-12-08 EXT [facility] OP Khalid, EXT MSRDP 1.2.840.114 1 [id number] [place] 00:00:00 00:00:00 Adnan LOCATION 350.1.13.58 H ealth 9.2.7.2.686 [id number] 2020-12-08 2020-12-08 EXT [facility] OP Khalid, EXT MSRDP 1.2.840.114 1 [id number] [place] 00:00:00 00:00:00 Adnan LOCATION 350.1.13.58 H ealth 9.2.7.2.686 [id number] 2020-12-06 2020-12-06 Appointmen JEANNIE [facility] [id number] [place] 14:00:00 14:00:00 t; JEANNIE AVELAR Phys ici ROSIO CAMACHO, LUCY Jose M.D. PATI, M.D. 2020-12-03 2020-12-06 [facility] Cortes 1.2.840.1 [id number] Methodi 16:45:00 11:32:00 Encounter Saravanan, Obdulio Gina 72778.1.[address] 3.430.2.7 Hospit a .3.668819 l .8 2020-12-02 2020-12-[address] [id number] [place] 11:15:00 11:15:00 t; LEANDRO OLIVARES, Surgery - Chalo Cruz M.D. 2020-11-17 2020-11-17 Emergency García, 1.2.840.1 [id number] 2100 [id number] Methodi 17:26:00 20:59:[address] Mendel 3.430.2.7 Hospit a .3.594932 l .8 2020-11-17 2020-11-17 VINCE Puente UTP [id number] [place] 15:00:00 15:00:00 t; Carter ROQUE i, M.D. ans ASHTON, M.D. 2020-11-17 2020-11-17 Travel 1.2.840.1 1.2.945.022 9289 [id number] Methodi 00:00:00 00:00:[address] 3.430.2.7 0.2.7.3.698 Ho spita .3.733619 084.8 l .8 2020-11-02 2020-11-03 Emergency Dionicio, 1.2.840.1 [id number] 2 [id number] Methodi 23:00:00 01:47:[address] Nelsy 3.430.2.7 Hospit a .3.990681 l .8 2020-11-02 2020-11-02 Travel 1.2.840.1 1.2.133.141 9527 [id number] Methodi 00:00:00 00:00:[address] 3.430.2.7 0.2.7.3.698 Ho spita .3.066671 084.8 l .8 2020-09-16 2020-09-17 Emergency [place]. 1.2.840.1 1041 [id number] [id number] Methodi 13:34:00 13:30:00 Clarice Brannon 75999.1.[address] Lj Thakkar Britni 3.430.2.7 Hospita .3.786448 l .8 2020-09-10 2020-09-11 Emergency Jose Elias Torres Rusty. 1.2.840.1 [id number] Methodi 22:04:00 18:12:00 Lydia Oden [address]8735.1.[address] Maribel Dickey 3.430.2.7 H ospita Lj Thakkar Britni .3.861015 l .8 2020-09-10 2020-09-10 Travel 1.2.840.1 1.2.687.417 5116 [id number] Methodi 00:00:00 00:00:[address] 3.430.2.7 0.2.7.3.698 Ho spita .3.360224 084.8 l .8 2020-07-15 2020-07-16 Emergency García, 1.2.840.1 [id number] 2100 [id number] Methodi 20:20:00 01:48:[address] Mendel 3.430.2.7 Hospit a .3.834422 l .8 2020-07-15 2020-07-15 Travel 1.2.840.1 1.2.335.319 0059 193899 Methodi 00:00:00 00:00:[address] 3.430.2.7 0.2.7.3.698 Ho spita .3.336760 084.8 l .8 2020-05-06 2020-05-08 Emergency Kevin Sood 1.2.840.1 1041 [id number] [id number] Methodi 00:09:00 12:49:00 Blaze Squires [address]30.1.[address] 3.430.2.7 Hospit a .3.276740 l .8 2020-05-06 2020-05-06 Travel 1.2.840.1 1.2.137.116 4676 [id number] Methodi 00:00:00 00:00:[address] 3.430.2.7 0.2.7.3.698 Ho spita .3.616492 084.8 l .8 2020-02-20 2020-02-20 Emergency ER [facility] Emergency [id number] [facility] 19:04:00 19:04:00 2020-02-20 2020-02-20 Outpatient FBCOVID FBCOVID [id number] FBCOVID 00:00:00 00:00:00 [id number] 1941-06-24 2020-02-04 [facility] [id number] [id number] [place] 10:15:00 23:59:00 CWANZA Medica [facility] 2020-02-04 2020-02-04 Emergency ER [facility] Emergency [id number] [facility] 05:29:00 05:29:00 2019-12-03 2019-12-03 Emergency E BRITNI RODRIGUEZ [facility] [id number] Memoria 16:11:00 19:03:00 [facility] 2019-12-03 2019-12-03 Outpatient KARISHMA, [facility] [id number] Memoria 17:00:00 18:55:00 THOMAS [facility] 2019-10-12 2019-10-12 Emergency [facility] [id number] [facility] 17:06:00 17:06:00 [id number] 2019-08-25 2019-08-25 Emergency E [facility] NW 0013 [facility] 17:44:00 17:44:00 2016-02-13 2016-02-13 [facility] [id number] Memoria 05:43:00 11:41:00 Emergency r Antonio 00 l [facility] 2016-02-13 2016-02-13 EC nullFlavo [facility] [id number] Memoria 05:43:00 11:41:00 Emergency r [place] 00 l [facility] 2016-02-13 2016-02-13 Outpatient Sravanthi [facility] [id number] 00:43:00 06:41:00 Malorie 00 Suzanne 2014-09-04 2014-09-04 EC nullFlavo [facility] [id number] Memoria 07:09:00 09:15:00 Emergency r [place] 19 l [facility] 2014-09-04 2014-09-04 EC nullFlavo [facility] [id number] Memoria 07:09:00 09:15:00 Emergency r [place] 19 l [facility] 2014-09-04 2014-09-04 [facility] 2.16.840. 2.16.840.1. [id number] 01:09:00 03:15:00 Tatsuo 1.328134. 452475.3.61 19 3.615.0.1 5.0.288 02 1519-01-12 2014-08-24 EC nullFlavo [facility] [id number] 675 Memoria 17:17:00 22:15:00 Emergency r [place] 18 l [facility] 2014-08-24 2014-08-24 EC nullFlavo [facility] [id number] Memoria 17:17:00 22:15:00 Emergency r Antonio 18 l [facility] 2014-08-24 2014-08-24 Outpatient [facility], 2.16.840. 2.16.840.1. [id number] 11:17:00 16:15:00 Tatsuo 1.151237. 682834.3.61 18 3.615.0.1 5.0.101 01 Results Test Description Test Time Test Comments Results Result Comments Source TEST, SERUM 2022-08-15 04:20:10 Test Item Value Reference Range Interpretation Comme nts PREG SERUM (test code = 1053466334) Negative CIRO (test code = CIRO) Less than 10 IU/L. ?If low titer or ectopic is suspected, resubmit specimen in 48-72 hours. [id number] 03:49:08 Test Item Value Reference Interpretation Comments Range TROPONIN I (test 0.001 ng/mL See_Comment [Automated code = 1459249099) message] The system which generated this result transmitted reference range : <=0.034. The reference range was not used to interpret this result as normal/abnormal . CIRO (test code = Reference (Normal) CIRO) Range (defined by the 99th percentile reference limit): <= 0.034 ng/mL Note: Cardiac troponin begins to rise 3-4 hours after the onset of ischemia. Repeat in 4-6 hours if the sample was drawn within 3-4 hours of the onset of the symptom and found normal. Diagnosis of myocardial injury is made with acute changes in cTn concentrations with at least one serial sample above the 99th percentile upper reference limit (URL), taken together with the patient's clinical presentation. Biotin has been reported to cause a negative bias, interpret results relative to patient's use of biotin. Lab Interpretation Normal (test code = 10687-0) [facility] (36961)2022-08-15 03:37:26 Test Item Value Reference Range Interpretation Comments NA (test code = 138 mmol/L 135-145 3709324424) K (test code = 3.6 mmol/L 3.5-5.0 1268086947) CL (test code = 105 mmol/L 98-108 2099575439) CO2 TOTAL (test code 24 mmol/L 23-31 = 3655565340) AGAP (test code = 2-16 8594098152) BUN (test code = 9 mg/dL 7-23 0366278414) GLUCOSE (test code = 105 mg/dL 70-110 6764489635) CREATININE (test code 0.75 mg/dL 0.50-1.04 = 2797277571) TOTAL BILI (test code 0.6 mg/dL 0.1-1.1 = 2870843386) CALCIUM (test code = 8.7 mg/dL 8.6-10.6 5614700672) T PROTEIN (test code 6.7 g/dL 6.3-8.2 = 1753951889) ALBUMIN (test code = 3.9 g/dL 3.5-5.0 2408774992) ALK PHOS (test code = 69 U/L 34-122 0747030442) ALTv (test code = 35 U/L 5-35 2-6) AST(SGOT) (test code 27 U/L 13-40 = 1314826857) eGFR (test code = mL/min/1.73m2 9046792087) CIRO (test code = CIRO) Association of Glomerular Filtration Rate (GFR) and Staging of Kidney Disease* + + +- +| GFR (mL/min/1.73 m2) ?| With Kidney Damage ?| ?Without Kidney Damage+ ------+ ----+ ------+| ?>90 ?| ?Stage one ?| ? Normal ?+ -+ + -+| ?60-89 ?| ?Stage two ?| ? Decreased GFR ? + + +- +| ?30-59 ?| ?Stage three ?| ? Stage three ? + + +- +| ?15-29 ?| ?Stage four ? | ? Stage four ?+ -+ + -+| ?<15 (or dialysis) ? ?| ?Stage five ? | ? Stage five ?+ -+ + -+ *Each stage assumes the associated GFR level has been in effect for at least three months. ?Stages 1 to 5, with or without kidney disease, indicate chronic kidney disease. Notes: Determination of stages one and two (with eGFR >59mL/min/1.73 m2) requires estimation of kidney damage for at least three months as defined by structural or functional abnormalities of the kidney, manifested by either:Pathological abnormalities or Markers of kidney damage (including abnormalities in the composition of the blood or urine or abnormalities in imaging tests). [facility] WITH [id number] 03:25:05 Test Item Value Reference Range Interpretation Comments WBC (test code = See_Comment [Automated 1897-2) message] The sy stem which generated this result transmitted reference range : 4.30 - 11.10 10*3/?L. The reference range was not used to interpret this result as normal/abnormal . RBC (test code = See_Comment [Automated 097-6) message] The sy stem which generated this result transmitted reference range : 3.93 - 5.25 10*6/?L. The reference range was not used to interpret this result as normal/abnormal . HGB (test code = 13.8 g/dL 11.6-15.0 718-7) HCT (test code = 39.8 % 35.7-45.2 4544-3) MCV (test code = 90.0 fL 80.6-95.5 787-2) MCH (test code = 31.2 pg 25.9-32.8 785-6) MCHC (test code = 34.7 g/dL 31.6-35.1 786-4) RDW-SD (test code = 41.3 fL 39.0-49.9 92465-6) RDW-CV (test code = 12.5 % 12.0-15.5 788-0) PLT (test code = See_Comment H [Automated 777-3) message] The sy stem which generated this result transmitted reference range : 166 - 358 10*3/ ?L. The reference r ozzy was not used to interpret this result as normal/abnormal . MPV (test code = 9.4 fL 9.5-12.9 L 89448-4) NRBC/100 WBC (test See_Comment [Automat ed code = 1369987883) message] The system which generated this result transmitted reference range : 0.0 - 10.0 /100 WBCs. The refer ence range was not u sed to interpret th is result as normal/abnormal . NRBC x10^3 (test code See_Comment [Auto mated = 0514140531) message] The s ystem which generated this result transmitted reference range : 10*3/?L. The reference range was not used to interpret this result as normal/abnormal . GRAN MAT (NEUT) % 55.2 % (test code = 770-8) IMM GRAN % (test code 0.50 % = 1736282302) LYMPH % (test code = 30.7 % 736-9) MONO % (test code = 6.4 % 5905-5) EOS % (test code = 6.2 % 713-8) BASO % (test code = 1.0 % 706-2) GRAN MAT x10^3(ANC) 5.54 10*3/uL 1.88-7.09 (test code = 6224992598) IMM GRAN x10^3 (test 0.05 10*3/uL 0.00-0.06 code = 8459689626) LYMPH x10^3 (test code 3.08 10*3/uL 1.32-3.29 = 731-0) MONO x10^3 (test code 0.64 10*3/uL 0.33-0.92 = 742-7) EOS x10^3 (test code = 0.62 10*3/uL 0.03-0.39 H 711-2) BASO x10^3 (test code 0.10 10*3/uL 0.01-0.07 H = 704-7) Lab Interpretation Abnormal (test code = 02951-7) [facility] Hospital[facility]etir[facility] [id number] 14:27:33 Test Item Value Reference Interpretation Comments Range Levetiracetam (test <2.0 mcg/mL L Referen ce Range: code = 5015084) 12.0-46.0 To xic level is not we ll established. Interpretation should include a clinical evalua tion. For additional information, pl ease refer [email or web address] ion.RSB [email or web address]/ faq/MBB504(This link is being provid ed forinformationa l/edu cational purpos es only.) This jose t was developed and i ts analytical performance characteristics have been determined by [employer]. It has not been cleared or appr christiano by theFDA. This assay has been validated pursu ant to the CLIA regulations and is used for clinic al purposes. CIRO (test code = Performing Lab CIRO) *GAGAN[employer] [facility], [address] [place] [id number] Parminder Szymanski MD Lab Interpretation Abnormal (test code = 94548-0) [facility] [id number] 14:27:33 Test Item Value Reference Interpretation Comments Range Levetiracetam (test <2.0 mcg/mL L Referen ce Range: code = 2217412) 12.0-46.0 To xic level is not we ll established. Interpretation should include a clinical evalua tion. For additional information, pl ease refer tohttp://educat ion.[employer] .Weave/ faq/CWI949(This link is being provid ed forinformationa l/edu cational purpos es only.) This jose t was developed and i ts analytical performance characteristics have been determined by [employer]. It has not been cleared or appr christiano by theFDA. This assay has been validated pursu ant to the CLIA regulations and is used for clinic al purposes. CIRO (test code = Performing Lab CIRO) *GAGANDEEP OfferWire [facility], [address] [place] [phone] Parminder Szymanski MD Lab Interpretation Abnormal (test code = 09987-9) [facility] CenterCT, [facility]IN, WITHOUT [id number] 23:05:00 Unlisted Reason for Exam - Click Yes and Enter Reason Below->No [facility] 1975 Sex: FFINAL REPORT CT, BRAIN, WITHOUT CONTRAST, CT, SPINE, CERVICAL, WO CONTRAST INDICATION: Seizure, normal neuro exam (Ped 0-18y), [...] No acute fracture. No aggressive osseous lesion. Congenitally unfused C1 posterior ring. Spondylosis: No high-grade canal or foraminal stenosis. Soft tissues: No prevertebral soft tissue swelling. Visualized lung apices are clear. IMPRESSION: No acute intracranial abnormality. No acute osseous fracture cervical spine. If there is persistent clinical concern for intracranial pathology, MR examination is recommended for further characterization. Signed: Aneudy Asencio MDReport Verified Date/Time: 05/05/2021 23:05:29 CT, SPINE, CERVICAL, WO [id number] 23:05:00Unlisted Reason for Exam - Click Yes and Enter Reason Below->No [facility] 1975 Sex: FFINAL REPORT CT, BRAIN, WITHOUT CONTRAST, CT, SPINE, CERVICAL, WO CONTRAST INDICATION: Seizure, normal neuro exam (Ped 0-18y), [...] No acute fracture. No aggressive osseous lesion. Congenitally unfused C1 posterior ring. Spondylosis: No high-grade canal or foraminal stenosis. Soft tissues: No prevertebral soft tissue swelling. Visualized lung apices are clear. IMPRESSION: No acute intracranial abnormality. No acute osseous fracture cervical spine. If there is persistent clinical concern for intracranial pathology, MR examination is recommended for further characterization. Signed: Aneudy Asencio MDReport Verified Date/Time: 05/05/2021 23:05:29 [facility] [id number] 21:22:45 Test Item Value Reference Range Interpretation Comments Troponin I (test code = <0.03 0.00-0.15 56051-3) CIRO (test code = CIRO) Troponin I [...] THELMA Lab Interpretation (test Normal code = 22407-4) [facility] CenterTroponin [id number] 21:22:45 Test Item Value Reference Range Interpretation Comments Troponin I (test code = <0.03 0.00-0.15 42727-3) CIRO (test code = CIRO) Troponin I [...] THELMA Lab Interpretation (test Normal code = 77149-0) [facility] CenterTRBERTHAN [id number] 21:22:45 Test Item Value Reference Range Interpretation [...] failure, acidosis, acute neurological disease, and persistent tachyarrhythmia.Hog Stomach Preparer ID - JUSTINComprehensive metabolic [id number] 21:20:36 Test Item Value Reference Interpretation Comments Range Protein, Total (test 7.5 See_Comment Specime n code = 2885-2) slightly hemolyzed [Automated message] The system which generated this result transmitted reference range : 6.0 - 8.5 gm/dL . The reference range was not used to interpret this result as normal/abnormal . Albumin (test code = 4.1 g/dL 3.5-5.0 [place] [address]-1) slightly hemolyzed Alkaline Phosphatase 72 U/L 30-115 (test code = 6768-6) Total Bilirubin 1.0 mg/dL 0.1-1.2 Specimen (test code = 1974-2) slightl y hemolyzed Sodium (test code = 141 meq/L 816-985 3850-2) Potassium (test code 3.8 meq/L 3.6-5.5 Specime n = 2823-3) slightly hemolyzed Chloride (test code 104 meq/L 98-106 = 5-0) CO2 (test code = 24 meq/L -29 2027-9) BUN (test code = 7 mg/dL 10-26 L 3094-0) Creatinine (test 0.81 mg/dL 0.50-1.20 Specimen code = 2160-0) slightly hemolyzed Glucose (test code = 92 mg/dL 70-110 2345-7) Calcium (test code = 9.4 mg/dL 8.5-10.5 06671-2) AST (test code = 21 U/L 5-40 Specimen 1920-8) slightly hemolyzed ALT (test code = 27 U/L 5-50 Specimen 1742-6) slightly hemolyzed EGFR (test code = 76 mL/min/1.73 [place] [address]-4) m NOT ACCURATE CREATININE CLEARANCE IN PREDICTING GLOMERULAR FILTRATION RATE . ESTIMATED GFR I S NOT APPLICABLE FOR DIALYSIS PATIENTS. CIRO (test code = Hog Stomach Preparer ID - CIRO) JUSTINOperator ID - JUSTINOperator ID - JUSTINOperator ID - JUSTINOperator ID - JUSTINOperator ID - JUSTINOperator ID - JUSTINOperator ID - JUSTINOperator ID - JUSTINOperator ID - JUSTINOperator ID - JUSTINOperator ID - JUSTINOperator ID - JUSTINOperator ID - JUSTINOperator ID - JUSTINOperator ID - JUSTINOperator ID - JUSTINOperator ID - JUSTINOperator ID - THELAM Lab Interpretation Abnormal (test code = 96732-1) [facility] CenterComprehensive metabolic [id number] 21:20:36 Test Item Value Reference Interpretation Comments Range Protein, Total (test 7.5 See_Comment Specime n code = 2885-2) slightly hemolyzed [Automated message] The system which generated this result transmitted reference range : 6.0 - 8.5 gm/dL . The reference range was not used to interpret this result as normal/abnormal . Albumin (test code = 4.1 g/dL 3.5-5.0 Specime n 00935-9) slightly hemolyzed Alkaline Phosphatase 72 U/L 30-115 (test code = 6768-6) Total Bilirubin 1.0 mg/dL 0.1-1.2 Specimen (test code = 1974-2) slightl y hemolyzed Sodium (test code = 141 meq/L 343-260 1206-2) Potassium (test code 3.8 meq/L 3.6-5.5 Specime n = 9423-3) slightly hemolyzed Chloride (test code 104 meq/L 98-106 = 2075-0) CO2 (test code = 24 meq/L 20-29 8-9) BUN (test code = 7 mg/dL 10-26 L 3094-0) Creatinine (test 0.81 mg/dL 0.50-1.20 Specimen code = 2160-0) slightly hemolyzed Glucose (test code = 92 mg/dL 70-110 2345-7) Calcium (test code = 9.4 mg/dL 8.5-10.5 47435-4) AST (test code = 21 U/L 5-40 Specimen 1920-8) slightly hemolyzed ALT (test code = 27 U/L 5-50 Specimen 1742-6) slightly hemolyzed EGFR (test code = 76 mL/min/1.[place] [address]-0) m NOT ACCURATE CREATININE CLEARANCE IN PREDICTING GLOMERULAR FILTRATION RATE . ESTIMATED GFR I S NOT APPLICABLE FOR DIALYSIS PATIENTS. CIRO (test code = Hog Stomach Preparer ID - CIRO) JUSTINOperator ID - JUSTINOperator [...] THELMA Lab Interpretation Abnormal (test code = 54914-5) [facility] CenterCOMPREHENSIVE METABOLIC [id number] 21:20:36 Test Item Value Reference Range Interpretation [...] S NOT APPLICABLE FOR DIALYSIS PATIEN TS. Hog Stomach Preparer ID - JUSTINOperator ID - JUSTINOperator ID - JUSTINOperator ID - JUSTINOperator ID - JUSTINOperator ID - JUSTINOperator ID - JUSTINOperator ID - JUSTINOperator ID - JUSTINOperator ID - JUSTINOperator ID - JUSTINOperator ID - JUSTINOperator ID - JUSTINOperator ID - JUSTINOperator ID - JUSTINOperator ID - JUSTINOperator ID - JUSTINOperator ID - JUSTINOperator ID - JUSTINCBC with platelet count + automated [id number] 20:51:36 Test Item Value Reference Range Interpretation Comments WBC (test code = 6690-2) 12.0 See_Comment H [A utomated message] The system Referly generated this result transmitted ref erence range: 4.0 - 10 .0 K/L. The refe rence range was not u sed to interpret this result as normal/abnor mal. RBC (test code = 789-8) 4.84 See_Comment [Au tomated message] The system Referly generated this result transmitted ref erence range: 4.00 - 5 .00 M/L. The refe rence range was not u sed to interpret this result as normal/abnor mal. MCHC (test code = 786-4) 34.8 See_Comment [A utomated message] The system Referly generated this result transmitted ref erence range: [...] H [Aut omated message] 777-3) The system Referly generated this result transmitted ref erence range: 150 - 43 0 K/CU MM. The referen ce range was not u sed to interpret this result as normal/abnor mal. MPV (test code = 9.7 fL 6.0-11.5 26808-1) nRBC (test code = 413) 0 See_Comment [Aut omated message] The system Referly generated this result transmitted ref erence range: [...] See_Comment [Aut omated message] 670) The system Referly generated this result transmitted ref erence range: 1.80 - 8 .00 K/L. The refe rence range was not u sed to interpret this result as normal/abnor mal. # Lymphs (test code = 3.61 See_Comment [Auto mated message] 414) The system Referly generated this result transmitted ref erence range: 1.48 - 4 .50 K/L. The refe rence range was not u sed to interpret this result as normal/abnor mal. # Monos (test code = 0.86 See_Comment [Autom ated message] 415) The system Referly generated this result transmitted ref erence range: 0.00 - 1 .30 K/L. The refe rence range was not u sed to interpret this result as normal/abnor mal. # Eos (test code = 416) 0.41 See_Comment [Au tomated message] The system Referly generated this result transmitted ref erence range: 0.00 - 0 .50 K/L. The refe rence range was not u sed to interpret this result as normal/abnor mal. # Baso (test code = 417) 0.10 See_Comment [A utomated message] The system Referly generated this result transmitted ref erence range: 0.00 - 0 .20 K/L. The refe rence range was not u sed to interpret this result as normal/abnor mal. Immature 0 % 0-0 Granulocytes-Relative (test code = 2801) Lab Interpretation (test Abnormal code = 35063-5) [facility] CenterCB with platelet count + automated [id number] 20:51:36 Test Item Value Reference Range Interpretation Comments WBC (test code = 6690-2) 12.0 See_Comment H [A utomated message] The system Referly generated this result transmitted ref erence range: 4.0 - 10 .0 K/L. The refe rence range was not u sed to interpret this result as normal/abnor mal. RBC (test code = 789-8) 4.84 See_Comment [Au tomated message] The system Referly generated this result transmitted ref erence range: 4.00 - 5 .00 M/L. The refe rence range was not u sed to interpret this result as normal/abnor mal. MCHC (test code = 786-4) 34.8 See_Comment [A utomated message] The system Referly generated this result transmitted ref erence range: [...] H [Aut omated message] 777-3) The system Referly generated this result transmitted ref erence range: 150 - 43 0 K/CU MM. The referen ce range was not u sed to interpret this result as normal/abnor mal. MPV (test code = 9.7 fL 6.0-11.5 00873-3) nRBC (test code = 413) 0 See_Comment [Aut omated message] The system Referly generated this result transmitted ref erence range: [...] See_Comment [Aut omated message] 670) The system Referly generated this result transmitted ref erence range: 1.80 - 8 .00 K/L. The refe rence range was not u sed to interpret this result as normal/abnor mal. # Lymphs (test code = 3.61 See_Comment [Auto mated message] 414) The system Referly generated this result transmitted ref erence range: 1.48 - 4 .50 K/L. The refe rence range was not u sed to interpret this result as normal/abnor mal. # Monos (test code = 0.86 See_Comment [Autom ated message] 415) The system Referly generated this result transmitted ref erence range: 0.00 - 1 .30 K/L. The refe rence range was not u sed to interpret this result as normal/abnor mal. # Eos (test code = 416) 0.41 See_Comment [Au tomated message] The system Referly generated this result transmitted ref erence range: 0.00 - 0 .50 K/L. The refe rence range was not u sed to interpret this result as normal/abnor mal. # Baso (test code = 417) 0.10 See_Comment [A utomated message] The system Referly generated this result transmitted ref erence range: 0.00 - 0 .20 K/L. The refe rence range was not u sed to interpret this result as normal/abnor mal. Immature 0 % 0-0 Granulocytes-Relative (test code = 2801) Lab Interpretation (test Abnormal code = 63711-4) [facility] W/PLT COUNT & AUTO [id number] 20:51:36 Test Item Value Reference Range Interpretation [...] (BEAKER) (test code = 2801) Continuous EEG [id number] 01:51:44CONTINUOUS VIDEO-EEG MONITORING REPORT - END OF STUDY Patient Name: Shanna BillsRN#: [id number] Date of : 1975 Initial Study Start date: 12/04/2020Initial Study Start Time: 08:49 CurrentStudy Start Date: 12/05/2020urrent Study Start Time: 00:00 [...] which consisted of real time detection of electricalevents that could be considered epileptiform. All electrographic [...] computer detected events that have been verified byvisual inspection to be interictal or ictal epileptiform [...] 9 hertz, that is reactive to eye opening.With drowsiness, there is the expected attenuation of [...] seizures captured. Onelia Hair MD ICD-10 Code: B726Kphsbfqwqe EEG [id number] 12:59:42 CONTINUOUS VIDEO-EEG MONITORING REPORT Patient Name: Shanna Mora#: [id number] Date of : 1975 Initial Study Start date: 12/04/2020Initial Study Start Time: 08:49 Current Study Start Date: 12/04/2020urrent Study Start Time: 08:49 Current Study End Date: 12/04/2020urrent Study End Time: 23:59 Indication: 45 y.o. [...] are reported below and considered in the finalreport of this monitoring study. Findings: Background: The [...] not performedPhotic stimulation: was not performed Interictal: Thereare no epileptiform discharges or seizures captured. Impression:This is a normal Video-EEG study. There are no lateralizing or focal features, epileptiform discharges or seizures captured. Onelia Hair MD ICD-10 Code: K065UBK 12 [id number] 05:31:10 Test Item Value Reference Range Interpretation Comments Ventricular rate (test code = 253) Atrial rate (test code = 255) DC interval (test code = 266) QRSD interval [...] 04:27,-Vent. rate has increased BY 62 [facility] [id number] 05:31:10 Test Item Value Reference Range Interpretation Comments Ventricular rate (test code = 253) Atrial rate (test code = 255) DC interval (test code = 266) QRSD interval [...] 04:27,-Vent. rate has increased BY 62 BPM- [facility] 12 [id number] 05:31:10 Test Item Value Reference Range Interpretation Comments Ventricular rate (test code = 253) Atrial rate (test code = 255) DC interval (test code = 266) QRSD interval [...] 04:27,-Vent. rate has increased BY 62 BPM- [facility] (routine) - Baseline [id number] 01:47:11VIDEO-EEG RECORDING AWAKE & ASLEEP - Baseline for bedside EEG Date of Service:12/04/20 Patient Name: Shanna Nur of : 1975 Attending MD: Onelia Hair MD Technique: Recordings were obtained using a standard international 10-20 electrode placement supplemented witha single electrocardiogram chest electrode. The recordings were obtained using a reference electrodeand reformatted digitally into sequential bipolar and referential montages for review. Indication: 45 y.o. year old female referred for video-EEG to evaluate for seizures. Findings: Background: The waking background at rest is continuous, composed of an admixture of largely alpha and beta frequencies,with the expected anterior to posterior voltage and frequency gradient with intermixed faster frequencies anteriorly and a symmetric and well- formed posterior dominant alpha rhythm of 9 hertz, that is reactive to eye opening. With drowsiness, there is the expected attenuation of the posterior dominantrhythm. During sleep, there is the emergence of normal sleep architecture including symmetric and well-defined sleep spindles and K complexes noted. Hyperventilation: was not performedPhotic stimulation: was not performed Interictal: There are no epileptiform discharges or seizures captured. Impression:This is a normal Video-EEG study. There are no lateralizing or focal features, epileptiform discharges or seizures captured. Onelia Hair MD ICD-10 Code: R569CT Head Wo [id number] 02:53:14EXAMINATION: CT HEAD WO CONTRAST CLINICAL HISTORY: Mental status change unknown cause COMPARISON: CThead 09/10/2020 TECHNIQUE: Axial CT images of the head obtained without intravenous contrast. Multiplanar reformatted images were also generated. FINDINGS: No evidence of acute intracranial hemorrhage, mass, mass effect, midline shift, or acute infarct. Ventricles and sulci are normal in appearance forage. Basal cisterns are clear. Calvarium is intact. Orbits are normal in appearance. No significant sinus inflammatory changes. Mastoid air cells are clear. IMPRESSION: 1. No CT evidence of acute intracranial abnormality. [id number] Interface, Radiology Results - 12/03/2020 9:56 PM CDT EXAMINATION: CT HEAD WO CONTRASTCLINICALHISTORY: Mental status change unknown causeCOMPARISON: CT head 09/10/2020TECHNIQUE: Axial CT images of the head obtained [...] IMPRESSION:1. No CT evidence of acute intracranial abnormality.[id number] [facility] RNA [Presence] in Respiratory specimen by SOREN with probe [id number] 02:03:42 Test Item Value Reference Range Interpretation Comments SARS-CoV-2 (COVID-19) RNA Not detected Not-Detected [Presence] in Respiratory specimen by SOREN with probe detection (test code = 62550-6) Whether patient is employed in a healthcare setting (test code = 05599-0) Whether the patient has symptoms related to condition of interest (test code = 84472-7) Patient was hospitalized because of this condition (test code = 82228-5) Whether the patient was admitted to intensive care unit (ICU) for condition of interest (test code = 36430-9) Whether patient resides in a congregate care setting (test code = 84049-5) [facility]ANNA CARBONE BROOKLYNXR Chest 1 Vw [id number] 23:58:22EXAMINATION: XR CHEST 1 VW PORTABLE CLINICAL HISTORY: chest pain COMPARISON: 09/10/2020 IMPRESSION: 1.Heart size and central vasculature are normal. 2.The lungs are clear. There is no consolidation or effusion. 3.The bones are intact. [id number] Interface, Radiology Results Incoming - 12/03/2020 7:01 PM CDT EXAMINATION: XR CHEST 1 VW PORTABLECLINICAL HISTORY: chest painCOMPARISON: 09/10/2020IMPRESSION:1.Heart size and central vasculature are normal.2.The lungs are clear. There is no consolidation or effusion.3.The bones are intact.1D2RAD_P L79Ubkpifocc [facility] [id number] 21:55:13Bladimir Brumfield MD 12/04/2020 3:12 PMCritical CarePerformed by: Bladimir Brumfield MDAuthorized by: Bladimir Cisse MD Critical care provider statement: Critical care time (minutes): 35 Critical caretime was exclusive of: Separately billable procedures and treating other patients Critical care was necessary to treat or prevent imminent or life-threatening deterioration of the following conditions:AGRONOMY INSTRUCTOR failure or compromise Critical care was time spent personally by me on the following activities:Blood draw for specimens, development of treatment plan with patient or surrogate, discussions with consultants, discussions with primary provider, evaluation of patient's response to treatment, examination of patient, ordering and performing treatments and interventions, ordering and review of laboratory studies, ordering and review of radiographic studies, pulse oximetry, re-evaluation of patient'scondition and review of old charts Moo 'yes' if you are taking over critical care for this patient from another provider.: noE ED Preliminary Interpretation - Not an [id number] 21:55:13 Bladimir Brumfield MD 12/04/2020 3:12 [facility] ED Preliminary Interpretation - Not an OrderPerformed by: Bladimir Brumfield MDAuthorized by: Bladimir Brumfield MD ECG reviewed by ED Physician in the absence of a lab courier: yes Rate: ECG rate: 119Rhythm: Rhythm: sinus tachycardia Ectopy: Ectopy: none QRS: QRS axis: Normal QRS intervals: NormalConduction: Conduction: normal ST segments: ST segments: NormalT waves: T waves: normalUrine [id number] 01:10:19 Test Item Value Reference Range Interpretation Comments Urine culture (test SEE COMMENT Bacteriu mario screen code = 4105540) negative. [facility] [id number] 01:10:19 Test Item Value Reference Range Interpretation Comments Urine culture (test SEE COMMENT Bacteriu mario screen code = 2112898) negative. [facility] [id number] 01:10:19 Test Item Value Reference Range Interpretation Comments Urine culture (test SEE COMMENT Bacteriu mario screen code = 3992927) negative. [facility][U] XRAY HAND MIN 3 VWS RIGHT [id number] 15:17:00Images acquired, not reported on this accession number.[facility] Hand 3+ Vw Right 2020-11-03 04:37:16EXAMINATION: XR HAND 3 VW RIGHT INDICATION: dog bite COMPARISON: None IMPRESSION: 3 views of the right hand were obtained.No visible acute fracture or dislocation.No visible radiodense foreign material. [facility]- MPHYMATH Interface, Radiology Results Incoming - 11/02/2020 11:40 PM CDT EXAMINATION: XR HAND 3 VW RIGHTINDICATION: dog biteCOMPARISON: NoneIMPRESSION:3 views of the right hand were obtained.No visible acute fracture or dislocation.No visible radiodense foreign material.[facility]-MPHYMATMethseymour hospital HospitalEEG (routine) 2020-09-17 16:59:35Date of Study Completion: September 17ate of Interpretation: September 17, 2020Ordering Provider:Dr. Whit Alston Inpatient Electroencephalogram Report History: 44 year old woman being treated after a seizure like episode. Please evaluate the underlying cerebral activity and rule out interictal epileptiform discharges. Technical Description: The recording was started at 10:23 AM and ended at 10:43 AM on 09/17/2020. It was a digitally recorded [...] movements noted on this tracing by the commercial technician did not have an epileptic correlate. No definitive interictal epileptiform discharges or electrographic seizures were appreciated. Sleep Recording:Stage II sleep was not recorded. Activation Procedures:Hy perventilation was not attempted. Photic stimulation utilizing flash frequencies ranging from 5 to 30 Hz did not elicit a driving response. EEG Interpretation: This was a normal awake and drowsy EEG.1.No paroxysmal discharges were observed. Clinical Correlation:1. The absence of interictal epileptiform discharges does not rule out an underlying tendency for unprovoked seizures (epilepsy). Note, however, that an EEG recording preceded by sleep deprivation or a prolonged recording during sleep would increase the statistical likelihood of detecting interictal discharges, and should be considered if pursuing a diagnosis of epilepsy.SARS-CoV-2 (COVID-19) RNA [Presence] in Respiratory specimen by SOREN with probe [id number] 00:31:49 Test Item Value Reference Range Interpretation Comments SARS-CoV-2 (COVID-19) RNA Not detected Not-Detected [Presence] in Respiratory specimen by SOREN with probe detection (test code = 38177-3) [facility] (routine)2020-09-11 20:16:18Date of Service: September 11ate of EEG interpretation: September 11, 2020. Routine Inpatient Electroencephalogram Report History: 44 y.o. female with possible seizure evaluated for underlying cerebral activity and epileptic seizures. Technical Description: The record consists of a greater than 20 minute digitally recorded multi-montage EEG with 21 electrodes placed according to the International 10/20 system. An EKG strip was recorded continuously. True eye leads were not employed. True temporalleads were not employed. EEG Description:When maximally aroused, the awake background was characterized by a well-developed 8-9 Hz, 20 to 40 microvolts symmetric posterior rhythm that attenuated appropriately to eye opening. The patient becomes drowsy over the course of the recording as evidenced by the dropout of the posterior rhythm and the emergence of a diffuse 2 to 7 Hz, 40 to 60 microvolts irregular slow activity. Sleep Recording:Stage II sleep was sustained for at least 3 minutes and was characterized by symmetric sleep spindles, vertex waves, and K- complexes. Symmetric positive occipital sharp transients of sleep were also observed. Slow-wave sleep and REM were not documented. Activation Pr ocedures:Hyperventilation was not performed. Photic stimulation utilizing flash frequencies ranging from 5 to 30 Hz did not elicit any paroxysmal discharges. EEG Interpretation: This was a normal awakeand asleep EEG.1. No paroxysmal discharges were observed. Clinical Correlation:1. The absence of interictal epileptiform discharges does not rule out an underlying tendency for unprovoked seizures (epilepsy). Note, however, that an EEG recording preceded by sleep deprivation or a prolonged recording during sleep would increase the statistical likelihood of detecting interictal discharges, and should be considered if pursuing a diagnosis of epilepsy.SARS-CoV-2 (COVID-19) RNA [Presence] in Respiratory specimen by SOREN with probe [id number] 07:15:55 Test Item Value Reference Range Interpretation Comments SARS-CoV-2 (COVID-19) RNA Not detected Not-Detected [Presence] in Respiratory specimen by SOREN with probe detection (test code = 75336-1) [facility] Ab[facility] Pelvis Wo [id number] 05:45:01EXAMINATION: CT ABDOMEN PELVIS WO CONTRAST HISTORY: [...] in approximately expected location. Multiple cervical mucus retention(nabothian) cysts. A 2.4 cm left adnexal cyst. Vascular: Greater abdominal vasculature unremarkable.No abdominal aortic aneurysm. Bowel: Low- density thickened appearance throughout colon. No significant inflammatory stranding surrounding the bowel. Appendix not visualized. No bowel obstruction. Lymphatic/Peritoneal: No abdominal lymphadenopathy. Musculoskeletal: No acute or aggressive-appearing osseous lesion. IMPRESSION: 1.Unchanged nonspecific slightly thickened appearance throughout the colon, afew areas of small bowel. This is nonspecific and may relate to low-level inflammation. No high grade enterocolitis. No bowel obstruction. [id number] Interface, Radiology Results Incoming - 09/10/2020 11:48 PM CST EXAMINATION: CT ABDOMEN PELVIS WO CONTRASTHISTORY: diarrhea abdominal painTECHNIQUE: CT examination of the abdomen and pelvis was performed without intravenous contrast. Sagittal and coronal computerized reformatted images weregenerated. CT imaging was performed with iterative reconstruction techniques and/or automated exposure control to reduce radiation dose. Please note the lack of intravenous contrast reduces sensitivityfor detecting solid organ disease.COMPARISON: 07/15/2020.FINDINGS:Lower Thorax: The [...] not visualized. No bowel obstruction.Lymphatic/Peritoneal: No abdominal lymphadenopa thy. Musculoskeletal: No acute or aggressive-appearing osseous lesion. IMPRESSION:1.Unchanged nonspecific slightly thickened appearance throughout the colon, a few areas of small bowel. This is nonspecific and may relate to low- level inflammation. No high grade enterocolitis. No bowel obstruction.1D2RA D_PS02[facility] LcttlenoVGWL-WbR-8 (COVID-19) RNA [Presence] in Respiratory specimen by SOREN with probe [id number] 05:23:42 Test Item Value Reference Range Interpretation Comments SARS-CoV-2 (COVID-19) RNA Not detected Not-Detected [Presence] in Respiratory specimen by SOERN with probe detection (test code = 16719-5) [facility], (w Contrast, Strain and 3D if needed)2020-05-11 04:52:19 Test Item Value Reference Range Interpretation Comments Velocity Ratio (V1/V2) 0.85 m/s (test code = 4689) IVS,d (test code = 1.00 cm 3138905405) EF (test code = 52.31 % 4585695914) Ascending aorta (test 2.67 cm code = 2833777544) LVPWD,d (test code = 1.00 cm 4189961007) AoV Mean PG (test code mmHg = 0584599053) AV LVOT peak gradient mmHg (test code = 4761669879) MV mean gradient (test mmHg code = 5909448690) MV valve area p 1/2 3.31 cm2 method (test code = 7560644151) PV Pk Grad (test code = mmHg 6806678192) E/A ratio (test code = 7846755823) E wave decelartion time msec (test code = 0500945391) LVOT Diam,S (test code 1.98 cm = 8843971408) LVOT area (test code = 3.08 cm2 8562954846) LVOT Vmax (test code = 0.96 m/s 8701299858) LVOT VTI (test code = 0.21 m 8384490983) RVOT Vmax (test code = 0.58 m/s 1666244270) AoV Peak PG (test code mmHg = 4458295710) MV Peak E Giuliano (test 0.94 m/s code = 0831364346) MV stenosis pressure 66.39 ms 1/2 time (test code = 2071420949) MV Peak A Giuliano (test 0.74 m/s code = 9554252535) Ao Root Diameter (test 2.99 cm code = 4211255222) AoV Area, Vmax (test 2.60 cm2 code = 1329548024) AoV Area, VTI (test 2.95 cm2 code = 2457104120) AoV Vmax (test code = 1.13 m/s 4367629513) IVS/LVPW,2D (test code = 6021329547) Left Atrium Dimension 3.10 cm Anterior (test code = 6084852128) LV,d (test code = 4.15 cm 8964357710) LV,s (test code = 3.05 cm 7433869587) PV VMAX (test code = 0.78 m/s 6057996859) TR Vpeak (test code = 1.85 mm/s 9239195420) MV E A ratio (test code = 5616357967) TR pk grad (test code = mmHg 1925130504) MR peak grad (test code mmHg = 5931337977) Ao Root Diameter (test 2.99 cm code = 6322341749) LV SYS VOL (test code = 36.41 ml 9405435364) LV RIOS VOL (test code 76.34 ml = 8522591411) LV SV Teich 2D (test 39.93 ml code = 9785607981) LV Vol s Teich PSAX 36.41 ml (test code = 6975797652) MV Vmax (test code = 0.89 m 0447903222) MV VTI Tips (test code 0.22 m = 1857436322) RVOT pk grad (test code mmHg = 9143439617) AoV Vmn (test code = 2282184023) LV FS Cube 2D (test code = 2694195064) LV FS Teich 2D (test code = 8460196782) AoV VTI (test code = 0.22 m 5133439933) LA Area d A4C (test 12.41 cm2 code = 0453941746) LV EF,2D (test code = 60.32 % 1193403974) MR Vmax (test code = 4.15 m/s 8889150663) MV AE ratio (test code = 3601086186) LVOT Vmn (test code = 4887679837) Aov area Vmn (test code 2.47 cm2 = 9397295953) LA Vol d MOD A4C (test 27.63 ml code = 6737744053) LVOT mean grad (test mmHg code = 3374173066) MAX Pred HR (test code = 9166880715) 85 of MPHR (test code = 8935977939) Calc MPHR (test code = bpm 2740115146) LV SV Cube 2D (test 43.08 ml code = 8524436370) LV vol d cube 2D (test 71.42 ml code = 1093996627) LV vol s cube 2D (test 28.34 ml code = 8671326058) MV Decel slope (test 4.12 m/s2 code = 4434104803) Pred Exer Dur R1 (test code = 8415348896) Pred METS R1 (test code = 5182954025) CIRO (test code = CIRO) Left Ventricle: [...] regurgitation. No evidence of aortic valve stenosis. [facility] duplex venous upper [id number] 06:14:50 EXAMINATION: US DUPLEX VENOUS UPPER EXTREMITY RIGHT CLINICAL HISTORY: Arm swelling or pain DVT suspected COMPARISON: None. TECHNIQUE: Grayscale, color Doppler, and spectral waveform analysis of the right upper extremity deep venous system was performed. Contralateral left subclavian vein was also examined. FINDINGS: Intraluminal echoes within a superficial forearm [...] visualized veins of the right upper extremity. [facility]- [id number] Interface, Radiology Results 05/08/2020 1:17 AM CDT EXAMINATION: US DUPLEX VENOUS UPPER EXTREMITY RIGHTCLINICAL HISTORY: Arm swellingor pain DVT suspectedCOMPARISON: None.TECHNIQUE: Grayscale, color Doppler, and spectral waveform analysis [...] veins demonstrate normal Doppler flow and normal compressibility.Contralateral left subclavian vein is patent.IMPRESSION:1. Superficial forearm vein thrombosis.2. No sonographic evidence of deep venous thrombosis within the visualized veins of the right upper extremity.[facility]-[id number] HospitalEEG (routine)2020-05-07 22:01:23Date of Service: May 07, 2020.Date of EEG interpretation: May 07, 2020. Routine Inpatient Electroencephalogram Report History: 44 y.o. female with a history of altered mental status evaluated for underlying cerebral activity and epileptic seizures. Technical Description: The record consists of a greater than 41 minute digitally recorded multi-montage EEG with 21 electrodes [...] 2 to 7 Hz, 40 to 60 microvolts irregular slow activity. [...] did not elicit any paroxysmal discharges. EEG Interpretation:This was a normal awake and asleep EEG.1. No paroxysmal discharges were observed. Clinical Correlation:1. The absence of interictal epileptiform discharges does not rule out an underlying tendency for unprovoked seizures (epilepsy). Note, however, that an EEG recording preceded by sleep deprivation ora prolonged recording during sleep would increase the statistical likelihood of detecting interictaldischarges, and should be considered if pursuing a diagnosis of epilepsy.MRI Brain W Wo [id number] 03:27:20EXAMINATION: MRI BRAIN W WO CONTRAST CLINICAL HISTORY: Multiple sclerosis new neurological event, facial numbness vertigo speech abnormalities COMPARISON: Brain MR August 03, 2018. Head CT same day. B rain MR from November 2015. TECHNIQUE: Multiplanar and multisequence MRI imaging of the brain was obtained with and without contrast. FINDINGS: No evidence of acute intracranial hemorrhage, mass, mass effect, acute infarct or midline shift. Ventricles and sulci are normal in appearance for patient's age.No abnormal intracranial enhancement. No abnormal susceptibility. Basal cisterns are clear. Major intracranial flow voids are maintained. Midline structures are unremarkable. Orbits are normal in appearance. Visualized paranasal sinuses and mastoid air cells are clear. IMPRESSION: 1. No acute intracranial abnormality.2. No identifiable demyelinating lesions or suspicious pericallosal lesions with a perivenular morphology. [id number] Interface, Radiology Results Incoming - 05/06/2020 10:30 PM CDT EXAMINATION: MRI BRAIN W WO CONTRASTCLINICAL HISTORY: Multiple sclerosis new neurological event, facial numbness vertigo speech abnormalitiesCO MPARISON: Brain MR August 03, 2018. Head CT same day. Brain MR from November 2015.TECHNIQUE: Multiplanar and multisequence MRI imaging of the brain was obtained with and without contrast.FINDINGS:No evidence of acute intracranial hemorrhage, mass, mass effect, acute infarct or midline shift. Ventriclesand sulci are normal in appearance for patient's age. No abnormal intracranial enhancement. No abnormal susceptibility. Basal cisterns are clear. Major intracranial flow voids are maintained. Midline structures are unremarkable. Orbits are normal in appearance. Visualized paranasal sinuses and mastoidair cells are clear.IMPRESSION:1. No acute intracranial abnormality.2. No identifiable demyelinatinglesions or suspicious pericallosal lesions with a perivenular morphology.[id number] RNA [Presence] in Respiratory specimen by SOREN with probe [id number] 12:31:16 Test Item Value Reference Range Interpretation Comments SARS-CoV-2 (COVID-19) RNA Not detected Not-Detected [Presence] in Respiratory specimen by SOREN with probe detection (test code = 12275-5) [facility] ([facility]) 2020-02-22 21:37:00 Test Item Value Reference Range Interpretation Comments SARS-COV2/RT-PCR (test code = Positive Not Detected, Negative A A 5124936) SARS-COV-2 PERFORMING LAB CPL (test code = 9982892) CT, CHEST, WITHOUT [id number] 00:54:00Reason for exam:->cough, ?covidIs the patient ?->NoWhat [...] as low as reasonably achievable. FINDINGS: Lungs an d Pleura: Bilateral peripheral ground glass opacities predominantly within the lower lobe with minimal involvement of the the upper lobes. No effusion or pneumothorax. Right lung calcified granuloma. Central airways: Patent. Mediastinum: No adenopathy. Heart and pericardium: No acute findings. Great ve ssels: Normal calibers. Included upper abdomen: No acute abnormalities. Regional skeletal structures: Intact. Additional findings: None. IMPRESSION: Commonly reported imaging features of (COVID-19 or viral) pneumonia are present. Other processes such as influenza pneumonia and organizing pneumonia, ascan be seen with drug toxicity and connective tissue disorder, can cause a similar imaging pattern. Signed: Aneudy Asencio MDReport Verified Date/Time: 02/21/2020 00:54:38 PREGNANCY SCREEN, [id number] 00:28:00 Test Item Value Reference Range Interpretation Comments TEST URINE (BEAKER) (test Negative code = 583) CBC W/PLT COUNT & AUTO [id number] 22:46:00 Test Item Value Reference Range Interpretation [...] (BEAKER) (test code = 2801) LACTIC ACID, [id number] 22:30:00 Test Item Value Reference Range Interpretation Comments LACTATE BLOOD VENOUS 1.38 mmol/L 0.50-2.00 Specime n slightly (2) (BEAKER) (test hemolyzed code = 3642) Hog Stomach Preparer ID - JUSTINBASIC METABOLIC [id number] 22:10:00 Test Item Value Reference Range Interpretation [...] S NOT APPLICABLE FOR DIALYSIS PATIEN TS. Hog Stomach Preparer ID - [id number] 22:09:00 Test Item Value Reference Range Interpretation [...] failure, acidosis, acute neurological disease, and persistent tachyarrhythmia.Hog Stomach Preparer ID - [id number], CHEST, 1 VIEW, NON [id number] 20:58:00Reason for exam:->coughIs the patient ?- >NoShould this be performed at the bedside?->YesFINAL REPORT RAD, CHEST, 1 VIEW, NON DEPT CLINICAL HISTORY: cough TECHNIQUE: Single view of the chest. COMPARISON: October 12, 2019 IMPRESSION: There are no focal infiltrates or effusions. No pneumothorax. The cardiomediastinal silhouette is magnified by technique. The osseous structures appear intact. Signed: Aneudy Asencio MDReport Verified Date/Time: 02/20/2020 20:58:56 SARS-COV2/RT-PCR ([facility])2020-02-06 03:25:00 Test Item Value Reference Range Interpretation Comments SARS-COV2/RT-PCR (test code = Positive Not Detected, Negative A A 6245759) SARS-COV-2 PERFORMING LAB CPL (test code = 5357249) URINALYSIS W/ [id number] 08:24:00 Test Item Value Reference Range Interpretation [...] 1663) SOURCE(BEAKER) (test code = 2795) SCREEN, [id number] 08:00:00 Test Item Value Reference Range Interpretation Comments TEST URINE (BEAKER) (test Negative code = 583) RAD, ABDOMEN/KUB 1 VIEW [id number] 07:21:00Reason for exam:->FEVERReason for exam:->DIARRHEAReason for exam:->EMESISFINAL REPORT RAD, ABDOMEN/KUB 1 VIEW AP CLINICAL INDICATION: FEVERDIARRHEAEMESIS COMPARISON: None TECHNIQUE: Single, frontal radiograph of the abdomen. FINDINGS: The bowel gas pattern is nonspecific, but nonobstructive. IUD is present. The regional skeleton is intact. IMPRESSION: Nonspecific, nonobstructive bowel gas pattern. Signed: Ling Jin MDReport Verified Date/Time: 02/04/2020 07:21:42 Reading Location: [facility] Radiology Reading Room COMPREHENSIVE METABOLIC [id number] 07:14:00 Test Item Value Reference Range Interpretation [...] S NOT APPLICABLE FOR DIALYSIS PATIEN TS. Hog Stomach Preparer ID - [id number] 06:59:00 Test Item Value Reference Range Interpretation Comments LIPASE (BEAKER) (test code = 749) 9 U/L 6-51 Hog Stomach Preparer ID - [id number] W/PLT COUNT & AUTO [id number] 06:41:00 Test Item Value Reference Range Interpretation [...] (test code = 2801) RAPID INFLUENZA A&B [id number] 19:09:00 Test Item Value Reference Range Interpretation Comments RAPID INFLUENZA A AG (BEAKER) Negative Negative, Inconclusive (test code = 1622) RAPID INFLUENZA B AG (BEAKER) Negative Negative, Inconclusive (test code = 1623) TROPONIN [id number] 18:51:00 Test Item Value Reference Range Interpretation [...] failure, acidosis, acute neurological disease, and persistent tachyarrhythmia.Hog Stomach Preparer ID - JUSTINPREGNANCY SCREEN, [id number] 18:49:00 Test Item Value Reference Range Interpretation Comments TEST URINE (BEAKER) (test Negative code = 583) URINALYSIS W/ [id number] 18:49:00 Test Item Value Reference Range Interpretation [...] code = 1663) SOURCE(BEAKER) (test code = 9957) BASIC METABOLIC [id number] 18:44:00 Test Item Value Reference Range Interpretation [...] S NOT APPLICABLE FOR DIALYSIS PATIEN TS. Hog Stomach Preparer ID - GORDON, CHEST, 1 VIEW, NON [id number] 18:41:00Reason for exam:->COUGHReason for exam:->SHORTNESS OF BREATHReason for exam:- >FEVERReason for exam:->DIZZINESSReason for exam:->LOSS OF CONSCIOUSNESSShould this be performed at the bedside?->YesFINAL REPORT Chest, 1 view. History: Cough and shortness of breath. Comparison:Radiograph the chest dated 07/31/2017.. Findings: The cardiomediastinal silhouette and pulmonary vasculature are within normal limits for a portable exam. The lungs are clear without evidence of consolidation or effusion. The soft tissues and osseous structures are intact. Cholecystectomy clips in right upper quadrant. IMPRESSION: No acute cardiopulmonary abnormality. Signed: Vandana Edwardseport Verified Date/Time: 10/12/2019 18:41:43 Electronically signed by: VANDANA EDWARDS MD on10/12/2019 06:41 PMCBC W/PLT COUNT & AUTO [id number] 18:29:00 Test Item Value Reference Range Interpretation [...] PERCENT (BEAKER) (test code = 2801) CT, [id number] 16:47:00Reason for exam:->FEVERReason for exam:->LEG PAINIs the patient ?->NoWhat is the patient's sedation requirement?- >No SedationFINAL REPORT DOSE REDUCTION: The examination was performed according to departmental dose-optimization program which includes automated exposure control, adjustment of the mA and/or kV according to patient size and/or use of iterative reconstruction technique. TECHNIQUE: CT of theabdomen and pelvis without intravenous contrast. Enteric contrast was not administered. COMPARISON: CT of the abdomen and pelvis, 11/19/2018 DISCUSSION: Limited study without intravenous contrast; detection of some masses, vascular pathology, and infectious/inflammatory process may be difficult. Lower lobe calcified granulomata seen. Noncontrast appearance of the liver, spleen, pancreas, adrenal glandsis unremarkable. Status post cholecystectomy. No biliary ductal [...] MDReport Verified Date/Time: 02/15/2019 16:47:32 Reading Location: [address] Transitional Reading Room URINALYSIS W/ [id number] 15:41:00 Test Item Value Reference Range Interpretation [...] 1663) SOURCE(BEAKER) (test code = 2795) SCREEN, [id number] 15:29:00 Test Item Value Reference Range Interpretation Comments TEST URINE (BEAKER) (test Negative code = 583) COMPREHENSIVE METABOLIC [id number] 15:26:00 Test Item Value Reference Range Interpretation [...] S NOT APPLICABLE FOR DIALYSIS PATIEN TS. [id number] 15:26:00 Test Item Value Reference Range Interpretation Comments LIPASE (BEAKER) (test code = 749) 20 U/L 6-51 [id number] 15:17:00 Test Item Value Reference Range Interpretation Comments AMYLASE (BEAKER) (test 42 U/L 30-110 Speci men slightly code = 349) hemolyzed CBC W/PLT COUNT & AUTO [id number] 15:03:00 Test Item Value Reference Range Interpretation [...] = 2801) RAD, KNEE, COMPLETE (4 VIEWS), [id number] 23:20:00Reason for exam:->MOTOR VEHICLE CRASHReason for exam:->HIP [...] narrowing with small osteophytes. The right joint spaces are maintained. The soft tissues are unremarkable. IMPRESSION: No acute fracture or dislocation in the bilateral knees.Mild degenerative changes in the left knee. Signed: Priti Friedman MDReport Verified Date/Time: 11/19/2018 23:20:49 Reading Location: [facility] B1 C013Y CT Body Reading Room RAD, KNEE, COMPLETE (4 VIEWS), [id number] 23:20:00Reason for exam:- >MOTOR VEHICLE CRASHReason for exam:->HIP [...] narrowing with small osteophytes. The right joint spaces are maintained. The soft tissues are unremarkable. IMPRESSION: No acute fracture or dislocation in the bilateral knees.Mild degenerative changes in the left knee. Signed: Priti Friedman Verified Date/Time: 11/19/2018 23:20:49 Reading Location: [facility] C013 CT Body Reading Room RAD, HIP, 2 VIEWS, [id number] 23:06:00Reason for exam:->MOTOR VEHICLE CRASHReason for exam:->HIP PAINReason for exam:->ARM INJURYReason for exam:->SHOULDER INJURYFINAL REPORT Right hip series, 2 views Clinical Indication: Right Hip Pain Impression: No evidence of acute fracture or traumatic malalignment. Note: If occult injury is suspected,consider CT. Signed: Brian Garibay Verified Date/Time: 11/19/2018 23:06:27 Reading Location:[address] Reading Room CT, [id number] 22:44:00Reason for exam:->MOTOR VEHICLE CRASHReason for exam:->HIP PAINReason for exam:- >ARM INJURYReason for exam:->SHOULDER INJURYIs the patient ?- >Unknownupt pendingWhat is the patient's sedation requirement?->No SedationFINAL REPORT ABDOMINAL AND PELVIS CT DATED 11/19/2018 CLINICAL INFORMATION: MOTORVEHICLE CRASHHIP PAINARM INJURYSHOULDER INJURYright flank pain TECHNIQUE: Axial images of the abdomen and pelvis were obtained from diaphragm to the pubic symphysis without GI or intravenous contrast. This exam was performed according to our departmental dose-optimization program, which includes automated exposure control, adjustment of the mA and/or kV according to patient size and/or use of interactive reconstruction technique. COMMENT: Liver and spleen are normal in size without focal abnormality. Gallbladder is surgically absent. No biliary dilatation is noted. Pancreas and adrenals are unremarkable. Both kidneys are normal in size. No hydronephrosis, hydroureter, urolithiasis is seen. The small and large bowel are unremarkable. Appendix is not visualized. Uterus is normal in size. Left ovaryis unremarkable. A 2.3 x 2 cm cyst is seen in the right ovary, almost certainly benign, no imaging follow- up recommended. The urinary bladder is contracted. No mass, adenopathy or ascites is present. IMPRESSION: Unremarkable noncontrast enhanced CT of the abdomen and pelvis. Signed: Whit Alcantara Verified Date/Time: 11/19/2018 22:44:18 Reading Location: [address] Reading Room RAD, SHOULDER, COMPLETE (MIN 2 VIEWS), [id number] 22:41:00Reason for exam:->MOTOR VEHICLE CRASHReason for exam:->HIP PAINReason for exam:->ARM INJURYReason for exam:->SHOULDER INJURYFINAL REPORT Right shoulder series - 3 VIEWS Clinical Indication: Right shoulder pain following traumatic injury. Impression: No evidence of acute fracture or traumatic malalignment. Signed: Brian Garibay Verified Date/Time: 11/19/2018 22:41:16 Reading Location: [address] Reading Room URINALYSIS W/ [id number] 21:44:00 Test Item Value Reference Range Interpretation [...] 1663) SOURCE(BEAKER) (test code = 2795) SCREEN, [id number] 21:40:00 Test Item Value Reference Range Interpretation Comments TEST URINE (BEAKER) (test Negative code = 583) URINALYSIS W/ [id number] 21:41:00 Test Item Value Reference Range Interpretation [...] 1663) SOURCE(BEAKER) (test code = 2795) SCREEN, [id number] 21:37:00 Test Item Value Reference Range Interpretation Comments TEST URINE (BEAKER) (test Negative code = 583) RAPID INFLUENZA A&B [id number] 20:49:00 Test Item Value Reference Range Interpretation Comments RAPID INFLUENZA A AG (BEAKER) Negative Negative, Inconclusive (test code = 1622) RAPID INFLUENZA B AG (BEAKER) Negative Negative, Inconclusive (test code = 1623) CT, [id number] 08:31:00Reason for exam:->ABDOMINAL PAINReason for exam:->FEVERReason for [...] and fever. COMPARISON: Abdomen and pelvis CT 11/07/2016. FINDINGS: ABSENCE OF INTRAVENOUS CONTRAST DECREASES SENSITIVITY FOR DETECTION OF FOCAL LESIONS AND VASCULAR PATHOLOGY. LOWER THORAX: Unremarkable. HEPATOBILIARY: No focal hepatic lesions. Prior cholecystectomy. No biliary ductal dilatation.SPLEEN: No splenomegaly.PANCREAS: No focal masses or ductal dilatation. ADRENALS: No adrenal nodules.KIDNEYS/URETERS: No hydronephrosis, stones, or solid mass lesions.PELVIC ORGANS/BLADDER: Intrauterine contraceptive device in place. Cervical nabothian cysts. Ovariesare grossly unremarkable. Bladder is unremarkable. PERITONEUM/RETROPERITONEUM: No free air or fluid.LYMPH NODES: No lymphadenopathy.VESSELS: Unremarkable. GI TRACT: No distention or wall thickening. Scattered colonic diverticula. BONES AND SOFT TISSUES: Unremarkable. IMPRESSION:No acute abnormalities in the abdomen and pelvis. Signed: Magy Barker MDReport Verified Date/Time: 07/31/2017 08:31:14 Reading Location: [facility] Diagnostic Imaging Reading Room - [place] [address] RAD, CHEST, 1 VIEW, NON [id number] 08:23:00Reason for exam:->ABDOMINAL PAINReason for exam:->FEVERReason for exam:->ORAL PAINShould this be performed at the bedside?->YesFINAL REPORT Chest, portable AP view History: Fever, pain Comparison: 03/25/2017 IMPRESSION: The cardiomediastinal silhouette and pulmonary vasculature are within normal limits. The lungs are clear without evidence of consolidation or effusion. There are no acute osseous abnormalities. The soft tissues are unremarkable. Signed: Bladimir Arellano MDReport Verified Date/Time: 07/31/2017 08:23:48 Reading Location: [address] Radiology Reading Room [id number] 08:07:00 Test Item Value Reference Range Interpretation Comments LIPASE (BEAKER) (test code = 749) 34 U/L 6-51 URINALYSIS W/ REFLEX URINE [id number] 08:06:00 Test Item Value Reference Range Interpretation [...] SOURCE(BEAKER) (test code = 2795) COMPREHENSIVE METABOLIC [id number] 08:06:00 Test Item Value Reference Range Interpretation [...] I S NOT APPLICABLE FOR DIALYSIS PATIEN SHERRI. [id number] 07:58:00 Test Item Value Reference Range Interpretation Comments AMYLASE (BEAKER) (test code = 349) 52 U/L 30-110 SCREEN, [id number] 07:52:00 Test Item Value Reference Range Interpretation Comments TEST URINE (BEAKER) (test Negative code = 583) CBC W/PLT COUNT & AUTO [id number] 07:48:00 Test Item Value Reference Range Interpretation [...] 0.00-0.20 (test code = 417) BASIC METABOLIC [id number] 21:32:00 Test Item Value Reference Range Interpretation [...] DIALYSIS PATIEN TS. LACTIC ACID, VENOUS, WHOLE [id number] 21:19:00 Test Item Value Reference Range Interpretation Comments LACTATE BLOOD VENOUS 0.9 mmol/L 0.5-2.2 Specime n slightly (2) (BEAKER) (test hemolyzed code = 2872) Effective 12/15/2015: Units/Reference Range ChangeNew: 0.5-2.2 mmol/L Previous: 5- 18 mg/dLCBC W/PLT COUNT & AUTO [id number] 21:07:00 Test Item Value Reference Range Interpretation [...] L 0.00-0.20 (test code = 417) SCREEN, [id number] 18:50:00 Test Item Value Reference Range Interpretation Comments TEST URINE (BEAKER) (test Negative code = 583) URINE [id number] 09:20:00 Test Item Value Reference Range Interpretation [...] = 480) CBC W/PLT COUNT & AUTO [id number] 16:52:00 Test Item Value Reference Range Interpretation [...] 0.00-0.20 (test code = 417) COMPREHENSIVE METABOLIC [id number] 16:28:00 Test Item Value Reference Range Interpretation [...] S NOT APPLICABLE FOR DIALYSIS PATIEN TS. [id number] 16:22:00 Test Item Value Reference Range Interpretation Comments LIPASE (BEAKER) (test code = 749) 26 U/L 6-51 URINALYSIS W/ REFLEX URINE [id number] 15:52:00 Test Item Value Reference Range Interpretation [...] 1663) SOURCE(BEAKER) (test code = 2795) SCREEN, [id number] 15:49:00 Test Item Value Reference Range Interpretation Comments TEST URINE (BEAKER) (test Negative code = 583) URINE AND [id number] 08:40:00 Test Item Value Reference Range Interpretation Comments UA Leuk Est (test code Trace *ABN*(02/13/16 3:40 = UA Leuk Est) AM) [facility] AND [id number] 08:40:00 Test Item Value Reference Range Interpretation Comments UA Nitrite (test code Negative (02/13/16 3:40 = UA Nitrite) AM) [facility] AND [id number] 08:40:00 Test Item Value Reference Range Interpretation Comments UA Urobilinogen (test code = UA 0.2 0.1-1.0 Urobilinogen) [facility] AND [id number] 08:40:00 Test Item Value Reference Range Interpretation Comments UA Ketones (test code Negative *NA*(02/13/16 = UA Ketones) 3:40 AM) [facility] AND [id number] 08:40:00 Test Item Value Reference Range Interpretation Comments UA Glucose (test code Negative (02/13/16 3:40 = UA Glucose) AM) [facility] AND [id number] 08:40:00 Test Item Value Reference Range Interpretation Comments UA Blood (test code = Large *ABN*(02/13/16 UA Blood) 3:40 AM) [facility] AND [id number] 08:40:00 Test Item Value Reference Range Interpretation Comments UA Bili (test code = Negative *NA*(02/13/16 UA Bili) 3:40 AM) [facility] AND [id number] 08:40:00 Test Item Value Reference Range Interpretation Comments UA Protein (test code = UA Protein) 30 mg/dL [facility] AND [id number] 08:40:00 Test Item Value Reference Range Interpretation Comments UA Spec Grav (test code = UA Spec 1.015 1 Grav) [facility] AND [id number] 08:40:00 Test Item Value Reference Range Interpretation Comments UA pH (test code = UA pH) 7.0 1 5.0-8.0 [facility] AND [id number] 08:40:00 Test Item Value Reference Range Interpretation Comments UA Color (test code = Red *ABN*(02/13/16 3:40 UA Color) AM) [facility] AND [id number] 08:40:00 Test Item Value Reference Range Interpretation Comments UA Turbidity (test code Bloody *ABN*(02/13/16 = UA Turbidity) 3:40 AM) [facility] AND [id number] 08:40:00 Test Item Value Reference Range Interpretation Comments UA Bacteria (test code = UA Occasional /HPF Bacteria) [facility] AND [id number] 08:40:00 Test Item Value Reference Range Interpretation Comments UA RBC (test Packed See_Comment [Automated mes shirley] code = UA RBC) *ABN*(02/13/16 3:40 The syst em which AM) generated this result transmitted ref erence range: <=2. The reference range was not used to int erpret this result as normal/abnormal . [facility] AND [id number] 08:40:00 Test Item Value Reference Range Interpretation Comments UA WBC (test code = UA WBC) 3-5 /HPF [facility] AND [id number] 08:40:00 Test Item Value Reference Range Interpretation Comments UA Sq Epi (test code = UA Sq Epi) Rare /LPF [facility] AND [id number] 08:40:00 Test Item Value Reference Range Interpretation Comments UA Leuk Est (test code Trace *ABN*(02/13/16 3:40 = UA Leuk Est) AM) [facility] AND [id number] 08:40:00 Test Item Value Reference Range Interpretation Comments UA Nitrite (test code Negative (02/13/16 3:40 = UA Nitrite) AM) [facility] AND [id number] 08:40:00 Test Item Value Reference Range Interpretation Comments UA Urobilinogen (test code = UA 0.2 0.1-1.0 Urobilinogen) [facility] AND [id number] 08:40:00 Test Item Value Reference Range Interpretation Comments UA Ketones (test code Negative *NA*(02/13/16 = UA Ketones) 3:40 AM) [facility] AND [id number] 08:40:00 Test Item Value Reference Range Interpretation Comments UA Glucose (test code Negative (02/13/16 3:40 = UA Glucose) AM) [facility] AND [id number] 08:40:00 Test Item Value Reference Range Interpretation Comments UA Blood (test code = Large *ABN*(02/13/16 UA Blood) 3:40 AM) [facility] AND [id number] 08:40:00 Test Item Value Reference Range Interpretation Comments UA Bili (test code = Negative *NA*(02/13/16 UA Bili) 3:40 AM) [facility] [id number] 08:40:00 Test Item Value Reference Range Interpretation Comments UA Protein (test code = UA Protein) 30 mg/dL [facility] AND [id number] 08:40:00 Test Item Value Reference Range Interpretation Comments UA Spec Grav (test code = UA Spec 1.015 1 Grav) [facility] AND [id number] 08:40:00 Test Item Value Reference Range Interpretation Comments UA pH (test code = UA pH) 7.0 1 5.0-8.0 [facility] AND [id number] 08:40:00 Test Item Value Reference Range Interpretation Comments UA Color (test code = Red *ABN*(02/13/16 3:40 UA Color) AM) [facility] AND [id number] 08:40:00 Test Item Value Reference Range Interpretation Comments UA Turbidity (test code Bloody *ABN*(02/13/16 = UA Turbidity) 3:40 AM) [facility] AND [id number] 08:40:00 Test Item Value Reference Range Interpretation Comments UA Bacteria (test code = UA Occasional /HPF Bacteria) [facility] AND [id number] 08:40:00 Test Item Value Reference Range Interpretation Comments UA RBC (test Packed See_Comment [Automated mes shirley] code = UA RBC) *ABN*(02/13/16 3:40 The syst em which AM) generated this result transmitted ref erence range: <=2. The reference range was not used to int erpret this result as normal/abnormal . [facility] AND [id number] 08:40:00 Test Item Value Reference Range Interpretation Comments UA WBC (test code = UA WBC) 3-5 /HPF [facility] AND [id number] 08:40:00 Test Item Value Reference Range Interpretation Comments UA Sq Epi (test code = UA Sq Epi) Rare /LPF [facility] AND [id number] 08:40:00 Test Item Value Reference Range Interpretation Comments UA Leuk Est (test code Trace *ABN*(02/13/16 3:40 = UA Leuk Est) AM) [facility] AND [id number] 08:40:00 Test Item Value Reference Range Interpretation Comments UA Nitrite (test code Negative (02/13/16 3:40 = UA Nitrite) AM) [facility] AND [id number] 08:40:00 Test Item Value Reference Range Interpretation Comments UA Urobilinogen (test code = UA 0.2 0.1-1.0 Urobilinogen) [facility] AND [id number] 08:40:00 Test Item Value Reference Range Interpretation Comments UA Ketones (test code Negative *NA*(02/13/16 = UA Ketones) 3:40 AM) [facility] AND [id number] 08:40:00 Test Item Value Reference Range Interpretation Comments UA Glucose (test code Negative (02/13/16 3:40 = UA Glucose) AM) [facility] AND [id number] 08:40:00 Test Item Value Reference Range Interpretation Comments UA Blood (test code = Large *ABN*(02/13/16 UA Blood) 3:40 AM) [facility] AND [id number] 08:40:00 Test Item Value Reference Range Interpretation Comments UA Bili (test code = Negative *NA*(02/13/16 UA Bili) 3:40 AM) [facility] AND [id number] 08:40:00 Test Item Value Reference Range Interpretation Comments UA Protein (test code = UA Protein) 30 mg/dL [facility] AND [id number] 08:40:00 Test Item Value Reference Range Interpretation Comments UA Spec Grav (test code = UA Spec 1.015 1 Grav) [facility] AND [id number] 08:40:00 Test Item Value Reference Range Interpretation Comments UA pH (test code = UA pH) 7.0 1 5.0-8.0 [facility] AND [id number] 08:40:00 Test Item Value Reference Range Interpretation Comments UA Color (test code = Red *ABN*(02/13/16 3:40 UA Color) AM) [facility] AND [id number] 08:40:00 Test Item Value Reference Range Interpretation Comments UA Turbidity (test code Bloody *ABN*(02/13/16 = UA Turbidity) 3:40 AM) [facility] AND [id number] 08:40:00 Test Item Value Reference Range Interpretation Comments UA Bacteria (test code = UA Occasional /HPF Bacteria) [facility] AND [id number] 08:40:00 Test Item Value Reference Range Interpretation Comments UA RBC (test Packed See_Comment [Automated mes shirley] code = UA RBC) *ABN*(02/13/16 3:40 The syst em which AM) generated this result transmitted ref erence range: <=2. The reference range was not used to int erpret this result as normal/abnormal . [facility] AND [id number] 08:40:00 Test Item Value Reference Range Interpretation Comments UA WBC (test code = UA WBC) 3-5 /HPF [facility] AND [id number] 08:40:00 Test Item Value Reference Range Interpretation Comments UA Sq Epi (test code = UA Sq Epi) Rare /LPF [id number] 06:44:00 Test Item Value Reference Range Interpretation Comments Eosinophils # (test code 0.1 See_Comment [A utomated message] The = Eosinophils #) system whic h generated this result tra nsmitted reference range : <=0.5. The reference r ozzy was not used to int erpret this result as normal/abnormal . [facility] HospitalXuaqcmhVOMYDWYNVR3534-01-08 06:44:00 Test Item Value Reference Range Interpretation Comments Segs-Bands # (test code = Segs-Bands #) 9.3 1.5-8.1 [facility] H[id number] 06:44:00 Test Item Value Reference Range Interpretation Comments Lymphocytes # (test code = Lymphocytes 2.6 1.0-5.5 #) [facility] H[id number] 06:44:00 Test Item Value Reference Range Interpretation Comments Basophils # (test code 0.0 See_Comment [Aut omated message] The = Basophils #) system which generated this result tra nsmitted reference range : <=0.2. The reference r ozzy was not used to int erpret this result as normal/abnormal . [facility] Ho[id number] 06:44:00 Test Item Value Reference Range Interpretation Comments Microcyte (test code = 1+ *ABN*(02/13/16 1:44 Microcyte) AM) [facility] H[id number] 06:44:00 Test Item Value Reference Range Interpretation Comments Giant Plt (test code Moderate *ABN*(02/13/16 = Giant Plt) 1:44 AM) [facility] [id number] 06:44:00 Test Item Value Reference Range Interpretation Comments Segs (test code = Segs) 75.2 45.0-75.0 [facility] Ho[id number] 06:44:00 Test Item Value Reference Range Interpretation Comments Hypochrom (test code = 1+ (02/13/16 1:44 AM) Hypochrom) [facility] [id number] 06:44:00 Test Item Value Reference Range Interpretation Comments Eosinophils (test code = 0.7 See_Comment [A utomated message] The Eosinophils) system which ge nerated this result tra nsmitted reference range : <=4.0. The reference r ozzy was not used to int erpret this result as normal/abnormal . [facility] HospitalWiwcnfrSTTNQVYBLH5389-64-28 06:44:00 Test Item Value Reference Range Interpretation Comments Lymphocytes (test code = Lymphocytes) 21.3 20.0-40.0 [facility] HospitalBdqvtydIGSDVVTPKQ0655-92-36 06:44:00 Test Item Value Reference Range Interpretation Comments Monocytes (test code = Monocytes) 2.7 2.0-12.0 [facility] H[id number] 06:44:00 Test Item Value Reference Range Interpretation Comments MPV (test code = MPV) 9.5 7.4-10.4 [facility] HospitalSfujbvzZDUQBGWSAV4977-03-25 06:44:00 Test Item Value Reference Range Interpretation Comments RDW (test code = RDW) 17.8 11.5-14.5 [facility] HospitalBqwuclmKEMYDTPYTX5214-29-40 06:44:00 Test Item Value Reference Range Interpretation Comments MCV (test code = MCV) 73.2 80.0-98.0 [facility] HospitalCjklocbXRNJWRIGUO0834-26-79 06:44:00 Test Item Value Reference Range Interpretation Comments MCH (test code = MCH) 21.9 pg 27.0-31.0 [facility] HospitalEzucjbsBZARIPAGMU0803-35-98 06:44:00 Test Item Value Reference Range Interpretation Comments Hct (test code = Hct) 27.2 36.0-48.0 [facility] [id number] 06:44:00 Test Item Value Reference Range Interpretation Comments MCHC (test code = MCHC) 29.9 32.0-36.0 [facility] CenterOoigigjXSLTBETERS0263-71-15 06:44:00 Test Item Value Reference Range Interpretation Comments Platelet (test code = Platelet) 400 133-450 [facility] CenterFsqcthxEEGUVNAWPC2576-16-89 06:44:00 Test Item Value Reference Range Interpretation Comments WBC (test code = WBC) 12.4 3.7-10.4 [facility] Cent[id number] 06:44:00 Test Item Value Reference Range Interpretation Comments RBC (test code = RBC) 3.72 4.20-5.40 [facility] HospitalZrbvykbWKTNSXZRGF4356-68-76 06:44:00 Test Item Value Reference Range Interpretation Comments Hgb (test code = Hgb) 8.1 12.0-16.0 [facility] CenterMlttfqlZOFGEOXNBZ6086-65-37 06:44:00 Test Item Value Reference Range Interpretation Comments PTT (test code = PTT) 27.2 s 22.9-35.8 [facility] CenterUpydrtvRRSTFDXAXW5671-28-07 06:44:00 Test Item Value Reference Range Interpretation Comments PT (test code = PT) 14.7 s 12.0-14.7 [facility] HospitalRiyfxfvORLDTZNEFM1941-89-43 06:44:00 Test Item Value Reference Range Interpretation Comments INR (test code = INR) 1.12 0.85-1.17 [facility] [employer] [id number] 06:44:00 Test Item Value Reference Range Interpretation Comments Antibody Scrn (test Negative (02/13/16 1:44 code = Antibody Scrn) AM) [facility] [employer] [id number] 06:44:00 Test Item Value Reference Range Interpretation Comments ABO/Rh (test code = ABO/Rh) A POS [facility] Advanced CirculatoryannCARDIAC [id number] 06:44:00 Test Item Value Reference Range Interpretation Comments CK MB Index (test 1.6 See_Comment [Automate d message] The code = CK MB Index) system w [facility] generated this result transmit gaye reference range : <=2.5. The reference range was not used to interpr et this result as satish l/abnormal. [facility] [employer] [id number] 06:44:00 Test Item Value Reference Range Interpretation Comments CK MB (test code = CK MB) 0.9 0.5-3.6 [facility] CenterInflowControl [id number] 06:44:00 Test Item Value Reference Range Interpretation Comments Total CK (test code = Total CK) 57 12-191 [facility] CenterMediQuest Therapeutics [id number] 06:44:00 Test Item Value Reference Range Interpretation Comments Troponin-I (test code no gt See_Comment [Auto mated message] The = Troponin-I) system which g enerated this result transmit gaye reference range : <=0.40. The reference r ozzy was not used to interpr et this result as satish l/abnormal. [facility] [employer] [id number] 06:44:00 Test Item Value Reference Range Interpretation Comments Albumin Lvl (test code = Albumin Lvl) 3.5 3.5-5.0 [facility] [employer] [id number] 06:44:00 Test Item Value Reference Range Interpretation Comments Total Protein (test code = Total 7.0 6.4-8.4 Protein) [facility] [employer] [id number] 06:44:00 Test Item Value Reference Range Interpretation Comments ALT (test code = ALT) 19 See_Comment [Auto mated message] The system which ge nerated this result transmit gaye reference range : <=65. The reference range was not used to interpr et this result as satish l/abnormal. [facility] [employer] [id number] 06:44:00 Test Item Value Reference Range Interpretation Comments AST (test code = AST) 10 See_Comment [Auto mated message] The system which ge nerated this result transmit gaye reference range : <=37. The reference range was not used to interpr et this result as satish l/abnormal. [facility] [employer] [id number] 06:44:00 Test Item Value Reference Range Interpretation Comments Alk Phos (test code = Alk Phos) 79 39-136 [facility] [employer] [id number] 06:44:00 Test Item Value Reference Range Interpretation Comments Bili Total (test code = Bili Total) 0.4 0.2-1.3 [facility]2016-07-03 06:44:00 Test Item Value Reference Range Interpretation Comments Bili Direct (test code 0.1 See_Comment [Aut omated message] The = Bili Direct) system which generated this result tra nsmitted reference range : <=0.3. The reference r ozzy was not used to int erpret this result as satish l/abnormal. [facility]2016-07-03 06:44:00 Test Item Value Reference Range Interpretation Comments Globulin (test code = Globulin) 3.5 2.0-4.0 [facility]2016-07-03 06:44:00 Test Item Value Reference Range Interpretation Comments A/G Ratio (test code = A/G Ratio) 1.0 0.7-1.6 [place] [id number] 06:44:00 Test Item Value Reference Range Interpretation Comments Bili Indirect (test 0.3 See_Comment [Automa gaye message] The code = Bili Indirect) system which generated this result tra nsmitted reference range : <=1.0. The reference r ozzy was not used to int erpret this result as normal/abnormal . [facility]2016-07-03 06:44:00 Test Item Value Reference Range Interpretation Comments eGFR (test code = eGFR) 107 [facility]2016-07-03 06:44:00 Test Item Value Reference Range Interpretation Comments BUN (test code = BUN) 8 7-22 [facility]2016-07-03 06:44:00 Test Item Value Reference Range Interpretation Comments Glucose Lvl (test code = Glucose Lvl) 91 70-99 [facility]2016-07-03 06:44:00 Test Item Value Reference Range Interpretation Comments Sodium Lvl (test code = Sodium Lvl) 138 135-145 [facility]2016-07-03 06:44:00 Test Item Value Reference Range Interpretation Comments Creatinine Lvl (test code = Creatinine 0.70 0.50-1.40 Lvl) [facility]2016-07-03 06:44:00 Test Item Value Reference Range Interpretation Comments Potassium Lvl (test code = Potassium 3.3 3.5-5.1 Lvl) [place] [id number] 06:44:00 Test Item Value Reference Range Interpretation Comments CO2 (test code = CO2) 25 24-32 [facility] CenterHedgeCoCHEM [id number] 06:44:00 Test Item Value Reference Range Interpretation Comments Chloride Lvl (test code = Chloride Lvl) 106 95-109 [facility] CenterHedgeCoCHEM [id number] 06:44:00 Test Item Value Reference Range Interpretation Comments Calcium Lvl (test code = Calcium Lvl) 8.1 8.5-10.5 [facility] CenterDeal In City [id number] 06:44:00 Test Item Value Reference Range Interpretation Comments AGAP (test code = AGAP) 10.3 10.0-20.0 [facility] [employer] [id number] 06:44:00 Test Item Value Reference Range Interpretation Comments Magnesium Lvl (test code = Magnesium 2.2 1.8-2.4 Lvl) [facility] CenterSeqbzjaYPWUXYEPYVCTL9012-28-18 06:44:00 Test Item Value Reference Range Interpretation Comments S Preg (test code = S Negative *NA*(02/13/16 Preg) 1:44 AM) [facility] CenterUnehsgtKVHZADLKZY3858-85-20 06:44:00 Test Item Value Reference Range Interpretation Comments Basophils (test code = 0.1 See_Comment [Aut omated message] The Basophils) system which ge nerated this result tra nsmitted reference range : <=1.0. The reference r ozzy was not used to int erpret this result as normal/abnormal . [facility] CenterQfrimmfZCINRIHBXS3593-57-14 06:44:00 Test Item Value Reference Range Interpretation Comments Monocytes # (test code 0.3 See_Comment [Aut omated message] The = Monocytes #) system which generated this result tra nsmitted reference range : <=0.8. The reference r ozzy was not used to int erpret this result as normal/abnormal . [facility] [employer] [id number] 06:44:00 Test Item Value Reference Range Interpretation Comments Antibody Scrn (test Negative (02/13/16 1:44 code = Antibody Scrn) AM) [facility] [employer] [id number] 06:44:00 Test Item Value Reference Range Interpretation Comments ABO/Rh (test code = ABO/Rh) A POS [facility] Advanced CirculatoryannCARDIAC [id number] 06:44:00 Test Item Value Reference Range Interpretation Comments CK MB Index (test 1.6 See_Comment [Automate d message] The code = CK MB Index) system w dee dee generated this result transmit gaye reference range : <=2.5. The reference range was not used to interpr et this result as satish l/abnormal. [facility] [employer]2016-07-03 06:44:00 Test Item Value Reference Range Interpretation Comments CK MB (test code = CK MB) 0.9 0.5-3.6 [facility]2016-07-03 06:44:00 Test Item Value Reference Range Interpretation Comments Total CK (test code = Total CK) 57 12-191 [facility] [employer]2016-07-03 06:44:00 Test Item Value Reference Range Interpretation Comments Troponin-I (test code no gt See_Comment [Auto mated message] The = Troponin-I) system which g enerated this result transmit gaye reference range : <=0.40. The reference r ozzy was not used to interpr et this result as satish l/abnormal. [employer]2016-07-03 06:44:00 Test Item Value Reference Range Interpretation Comments Albumin Lvl (test code = Albumin Lvl) 3.5 3.5-5.0 [facility] [employer]2016-07-03 06:44:00 Test Item Value Reference Range Interpretation Comments Total Protein (test code = Total 7.0 6.4-8.4 Protein) [facility] [employer]2016-07-03 06:44:00 Test Item Value Reference Range Interpretation Comments ALT (test code = ALT) 19 See_Comment [Auto mated message] The system which ge nerated this result transmit gaye reference range : <=65. The reference range was not used to interpr et this result as satish l/abnormal. [employer]2016-07-03 06:44:00 Test Item Value Reference Range Interpretation Comments AST (test code = AST) 10 See_Comment [Auto mated message] The system which ge nerated this result transmit gaye reference range : <=37. The reference range was not used to interpr et this result as satish l/abnormal. [employer]2016-07-03 06:44:00 Test Item Value Reference Range Interpretation Comments Alk Phos (test code = Alk Phos) 79 39-136 [facility]2016-07-03 06:44:00 Test Item Value Reference Range Interpretation Comments Bili Total (test code = Bili Total) 0.4 0.2-1.3 [facility]2016-07-03 06:44:00 Test Item Value Reference Range Interpretation Comments Bili Direct (test code 0.1 See_Comment [Aut omated message] The = Bili Direct) system which generated this result tra nsmitted reference range : <=0.3. The reference r ozzy was not used to int erpret this result as satish l/abnormal. [facility]2016-07-03 06:44:00 Test Item Value Reference Range Interpretation Comments Globulin (test code = Globulin) 3.5 2.0-4.0 [facility]2016-07-03 06:44:00 Test Item Value Reference Range Interpretation Comments A/G Ratio (test code = A/G Ratio) 1.0 0.7-1.6 [facility]2016-07-03 06:44:00 Test Item Value Reference Range Interpretation Comments Bili Indirect (test 0.3 See_Comment [Automa gaye message] The code = Bili Indirect) system which generated this result tra nsmitted reference range : <=1.0. The reference r ozzy was not used to int erpret this result as normal/abnormal . [facility]2016-07-03 06:44:00 Test Item Value Reference Range Interpretation Comments eGFR (test code = eGFR) 107 [facility]2016-07-03 06:44:00 Test Item Value Reference Range Interpretation Comments BUN (test code = BUN) 8 7-22 [facility]2016-07-03 06:44:00 Test Item Value Reference Range Interpretation Comments Glucose Lvl (test code = Glucose Lvl) 91 70-99 [facility]2016-07-03 06:44:00 Test Item Value Reference Range Interpretation Comments Sodium Lvl (test code = Sodium Lvl) 138 135-145 [facility]2016-07-03 06:44:00 Test Item Value Reference Range Interpretation Comments Creatinine Lvl (test code = Creatinine 0.70 0.50-1.40 Lvl) [facility]2016-07-03 06:44:00 Test Item Value Reference Range Interpretation Comments Potassium Lvl (test code = Potassium 3.3 3.5-5.1 Lvl) [facility]2016-07-03 06:44:00 Test Item Value Reference Range Interpretation Comments CO2 (test code = CO2) 25 24-32 [facility]2016-07-03 06:44:00 Test Item Value Reference Range Interpretation Comments Chloride Lvl (test code = Chloride Lvl) 106 95-109 [facility]2016-07-03 06:44:00 Test Item Value Reference Range Interpretation Comments Calcium Lvl (test code = Calcium Lvl) 8.1 8.5-10.5 [facility]2016-07-03 06:44:00 Test Item Value Reference Range Interpretation Comments AGAP (test code = AGAP) 10.3 10.0-20.0 [facility]2016-07-03 06:44:00 Test Item Value Reference Range Interpretation Comments Magnesium Lvl (test code = Magnesium 2.2 1.8-2.4 Lvl) [facility] 06:44:00 Test Item Value Reference Range Interpretation Comments S Preg (test code = S Negative *NA*(02/13/16 Preg) 1:44 AM) [facility]kljiuzPIGBRMOKLS3693-41-70 06:44:00 Test Item Value Reference Range Interpretation Comments Basophils (test code = 0.1 See_Comment [Aut omated message] The Basophils) system which ge nerated this result tra nsmitted reference range : <=1.0. The reference r ozzy was not used to int erpret this result as normal/abnormal . [facility] HospitalOaohbgkSRHQGHYDPO0682-71-46 06:44:00 Test Item Value Reference Range Interpretation Comments Monocytes # (test code 0.3 See_Comment [Aut omated message] The = Monocytes #) system which generated this result tra nsmitted reference range : <=0.8. The reference r ozzy was not used to int erpret this result as normal/abnormal . [facility] HospitalRuhllpwNDELWTXDXK0403-47-25 06:44:00 Test Item Value Reference Range Interpretation Comments Eosinophils # (test code 0.1 See_Comment [A utomated message] The = Eosinophils #) system whic h generated this result tra nsmitted reference range : <=0.5. The reference r ozzy was not used to int erpret this result as normal/abnormal . [facility] HospitalVvargriDLQUNRRACT4240-60-62 06:44:00 Test Item Value Reference Range Interpretation Comments Segs-Bands # (test code = Segs-Bands #) 9.3 1.5-8.1 [facility] HospitalFozqqqiQKPTLCABNN1887-23-75 06:44:00 Test Item Value Reference Range Interpretation Comments Lymphocytes # (test code = Lymphocytes 2.6 1.0-5.5 #) [facility] HospitalHrbsejoZBGOFQZAIP8775-68-43 06:44:00 Test Item Value Reference Range Interpretation Comments Basophils # (test code 0.0 See_Comment [Aut omated message] The = Basophils #) system which generated this result tra nsmitted reference range : <=0.2. The reference r ozzy was not used to int erpret this result as normal/abnormal . [facility] HospitalHopgoerIPCIVZXJDX5710-79-05 06:44:00 Test Item Value Reference Range Interpretation Comments Microcyte (test code = 1+ *ABN*(02/13/16 1:44 Microcyte) AM) [facility] HospitalIsnyoewDOODNSRVCM5291-42-46 06:44:00 Test Item Value Reference Range Interpretation Comments Giant Plt (test code Moderate *ABN*(02/13/16 = Giant Plt) 1:44 AM) [facility] HospitalIeoggclQOGZBYTWVW3453-49-83 06:44:00 Test Item Value Reference Range Interpretation Comments Segs (test code = Segs) 75.2 45.0-75.0 [facility] HospitalIbkxmttQXASDOMEDJ6916-21-92 06:44:00 Test Item Value Reference Range Interpretation Comments Hypochrom (test code = 1+ (02/13/16 1:44 AM) Hypochrom) [facility] HospitalOgtepsjAODTWJOJWF9909-79-19 06:44:00 Test Item Value Reference Range Interpretation Comments Eosinophils (test code = 0.7 See_Comment [A utomated message] The Eosinophils) system which ge nerated this result tra nsmitted reference range : <=4.0. The reference r ozzy was not used to int erpret this result as normal/abnormal . [facility] HospitalFetyvwdFGYLRWOMLL2666-66-58 06:44:00 Test Item Value Reference Range Interpretation Comments Lymphocytes (test code = Lymphocytes) 21.3 20.0-40.0 [facility] HospitalMwqcrniAXZKKUNXHC8720-04-18 06:44:00 Test Item Value Reference Range Interpretation Comments Monocytes (test code = Monocytes) 2.7 2.0-12.0 [facility] HospitalVgjnfevZWEGTXGLUE6465-76-47 06:44:00 Test Item Value Reference Range Interpretation Comments MPV (test code = MPV) 9.5 7.4-10.4 [facility] HospitalVliqcauPHOBZKIBQH1694-46-57 06:44:00 Test Item Value Reference Range Interpretation Comments RDW (test code = RDW) 17.8 11.5-14.5 [facility] HospitalUirrvqoNHWOSDIKQF2175-66-47 06:44:00 Test Item Value Reference Range Interpretation Comments MCV (test code = MCV) 73.2 80.0-98.0 [facility] HospitalZkvsjoxFCBNDJTRXQ0938-17-50 06:44:00 Test Item Value Reference Range Interpretation Comments MCH (test code = MCH) 21.9 pg 27.0-31.0 [facility] HospitalYjhwsymIGMEVQPSXP9686-63-83 06:44:00 Test Item Value Reference Range Interpretation Comments Hct (test code = Hct) 27.2 36.0-48.0 [facility] HospitalHpowblgXWPXVKODTU9383-88-46 06:44:00 Test Item Value Reference Range Interpretation Comments MCHC (test code = MCHC) 29.9 32.0-36.0 [facility] HospitalErdaoojWVUUCFNZPB0552-84-34 06:44:00 Test Item Value Reference Range Interpretation Comments Platelet (test code = Platelet) 400 133-450 [facility] HospitalHafwfolKSCPWAYVQO2709-57-12 06:44:00 Test Item Value Reference Range Interpretation Comments WBC (test code = WBC) 12.4 3.7-10.4 [facility] HospitalDhgtrseMHUNSQDTHI2965-51-65 06:44:00 Test Item Value Reference Range Interpretation Comments RBC (test code = RBC) 3.72 4.20-5.40 [facility] HospitalArjokeaNENXVDVOPC1663-50-88 06:44:00 Test Item Value Reference Range Interpretation Comments Hgb (test code = Hgb) 8.1 12.0-16.0 [facility] HospitalQwmszkiIRFAWVVBYA1158-93-49 06:44:00 Test Item Value Reference Range Interpretation Comments PTT (test code = PTT) 27.2 s 22.9-35.8 [facility] AlhfqjrMFIFKXHMDH8754-09-14 06:44:00 Test Item Value Reference Range Interpretation Comments PT (test code = PT) 14.7 s 12.0-14.7 [facility] FeigzjiDDUKIRUCND7801-02-35 06:44:00 Test Item Value Reference Range Interpretation Comments INR (test code = INR) 1.12 0.85-1.17 [employer] [id number] 06:44:00 Test Item Value Reference Range Interpretation Comments Antibody Scrn (test Negative (02/13/16 1:44 code = Antibody Scrn) AM) [employer] [id number] 06:44:00 Test Item Value Reference Range Interpretation Comments ABO/Rh (test code = ABO/Rh) A POS [facility]2016-07-03 06:44:00 Test Item Value Reference Range Interpretation Comments CK MB Index (test 1.6 See_Comment [Automate d message] The code = CK MB Index) system w [facility] generated this result transmit gaye reference range : <=2.5. The reference range was not used to interpr et this result as satish l/abnormal. [employer]2016-07-03 06:44:00 Test Item Value Reference Range Interpretation Comments CK MB (test code = CK MB) 0.9 0.5-3.6 [facility]2016-07-03 06:44:00 Test Item Value Reference Range Interpretation Comments Total CK (test code = Total CK) 57 12-191 [facility] [employer]2016-07-03 06:44:00 Test Item Value Reference Range Interpretation Comments Troponin-I (test code no gt See_Comment [Auto mated message] The = Troponin-I) system which g enerated this result transmit gaye reference range : <=0.40. The reference r ozzy was not used to interpr et this result as satish l/abnormal. [employer] [id number] 06:44:00 Test Item Value Reference Range Interpretation Comments Albumin Lvl (test code = Albumin Lvl) 3.5 3.5-5.0 [employer]2016-07-03 06:44:00 Test Item Value Reference Range Interpretation Comments Total Protein (test code = Total 7.0 6.4-8.4 Protein) [facility] [id number] 06:44:00 Test Item Value Reference Range Interpretation Comments ALT (test code = ALT) 19 See_Comment [Auto mated message] The system which ge nerated this result transmit gaye reference range : <=65. The reference range was not used to interpr et this result as satish l/abnormal. [facility] [id number] 06:44:00 Test Item Value Reference Range Interpretation Comments AST (test code = AST) 10 See_Comment [Auto mated message] The system which ge nerated this result transmit gaye reference range : <=37. The reference range was not used to interpr et this result as satish l/abnormal. [facility] [id number] 06:44:00 Test Item Value Reference Range Interpretation Comments Alk Phos (test code = Alk Phos) 79 39-136 [facility] [id number] 06:44:00 Test Item Value Reference Range Interpretation Comments Bili Total (test code = Bili Total) 0.4 0.2-1.3 [facility] [id number] 06:44:00 Test Item Value Reference Range Interpretation Comments Bili Direct (test code 0.1 See_Comment [Aut omated message] The = Bili Direct) system which generated this result tra nsmitted reference range : <=0.3. The reference r ozzy was not used to int erpret this result as satish l/abnormal. [facility] [employer] [id number] 06:44:00 Test Item Value Reference Range Interpretation Comments Globulin (test code = Globulin) 3.5 2.0-4.0 [facility] [id number] 06:44:00 Test Item Value Reference Range Interpretation Comments A/G Ratio (test code = A/G Ratio) 1.0 0.7-1.6 [facility] [id number] 06:44:00 Test Item Value Reference Range Interpretation Comments Bili Indirect (test 0.3 See_Comment [Automa gaye message] The code = Bili Indirect) system which generated this result tra nsmitted reference range : <=1.0. The reference r ozzy was not used to int erpret this result as normal/abnormal . [facility]2016-07-03 06:44:00 Test Item Value Reference Range Interpretation Comments eGFR (test code = eGFR) 107 [facility]2016-07-03 06:44:00 Test Item Value Reference Range Interpretation Comments BUN (test code = BUN) 8 7-22 [facility]2016-07-03 06:44:00 Test Item Value Reference Range Interpretation Comments Glucose Lvl (test code = Glucose Lvl) 91 70-99 [facility]2016-07-03 06:44:00 Test Item Value Reference Range Interpretation Comments Sodium Lvl (test code = Sodium Lvl) 138 135-145 [facility]2016-07-03 06:44:00 Test Item Value Reference Range Interpretation Comments Creatinine Lvl (test code = Creatinine 0.70 0.50-1.40 Lvl) [facility]2016-07-03 06:44:00 Test Item Value Reference Range Interpretation Comments Potassium Lvl (test code = Potassium 3.3 3.5-5.1 Lvl) [facility]2016-07-03 06:44:00 Test Item Value Reference Range Interpretation Comments CO2 (test code = CO2) 25 24-32 [facility]2016-07-03 06:44:00 Test Item Value Reference Range Interpretation Comments Chloride Lvl (test code = Chloride Lvl) 106 95-109 [facility]2016-07-03 06:44:00 Test Item Value Reference Range Interpretation Comments Calcium Lvl (test code = Calcium Lvl) 8.1 8.5-10.5 [facility]2016-07-03 06:44:00 Test Item Value Reference Range Interpretation Comments AGAP (test code = AGAP) 10.3 10.0-20.0 [facility]2016-07-03 06:44:00 Test Item Value Reference Range Interpretation Comments Magnesium Lvl (test code = Magnesium 2.2 1.8-2.4 Lvl) [facility]fl[facility]uiHQTUWYHDWCRFB5005-95-49 06:44:00 Test Item Value Reference Range Interpretation Comments S Preg (test code = S Negative *NA*(02/13/16 Preg) 1:44 AM) [facility]VlrnbkiCEOJNVNVYU2653-77-98 06:44:00 Test Item Value Reference Range Interpretation Comments Basophils (test code = 0.1 See_Comment [Aut omated message] The Basophils) system which ge nerated this result tra nsmitted reference range : <=1.0. The reference r ozzy was not used to int erpret this result as normal/abnormal . [facility] HospitalQjecoabUNEFMVKGPY0648-78-73 06:44:00 Test Item Value Reference Range Interpretation Comments Monocytes # (test code 0.3 See_Comment [Aut omated message] The = Monocytes #) system which generated this result tra nsmitted reference range : <=0.8. The reference r ozzy was not used to int erpret this result as normal/abnormal . [facility] HospitalFsrljtzLOQAYIACGQ7240-51-56 06:44:00 Test Item Value Reference Range Interpretation Comments Eosinophils # (test code 0.1 See_Comment [A utomated message] The = Eosinophils #) system whic h generated this result tra nsmitted reference range : <=0.5. The reference r ozzy was not used to int erpret this result as normal/abnormal . [facility] HospitalCphiamuVUUBQANGOS5764-63-36 06:44:00 Test Item Value Reference Range Interpretation Comments Segs-Bands # (test code = Segs-Bands #) 9.3 1.5-8.1 [facility] HospitalArrthnkVTZIHIIHUC8995-27-80 06:44:00 Test Item Value Reference Range Interpretation Comments Lymphocytes # (test code = Lymphocytes 2.6 1.0-5.5 #) [facility] HospitalRjajjbpXXINYHJERG1755-06-80 06:44:00 Test Item Value Reference Range Interpretation Comments Basophils # (test code 0.0 See_Comment [Aut omated message] The = Basophils #) system which generated this result tra nsmitted reference range : <=0.2. The reference r ozzy was not used to int erpret this result as normal/abnormal . [facility] HospitalRjaabswJWODSNPGXI2780-32-30 06:44:00 Test Item Value Reference Range Interpretation Comments Microcyte (test code = 1+ *ABN*(02/13/16 1:44 Microcyte) AM) [facility] HospitalGwxbzqeOSXTQPSUGL9735-66-40 06:44:00 Test Item Value Reference Range Interpretation Comments Giant Plt (test code Moderate *ABN*(02/13/16 = Giant Plt) 1:44 AM) [facility] HospitalRsferxnYRGDJGXGWN7137-37-88 06:44:00 Test Item Value Reference Range Interpretation Comments Segs (test code = Segs) 75.2 45.0-75.0 [facility] HospitalLfdngvcIDDSMBANCG6873-03-07 06:44:00 Test Item Value Reference Range Interpretation Comments Hypochrom (test code = 1+ (02/13/16 1:44 AM) Hypochrom) [facility] HospitalJquoyllGEVSNKYYJH9609-96-05 06:44:00 Test Item Value Reference Range Interpretation Comments Eosinophils (test code = 0.7 See_Comment [A utomated message] The Eosinophils) system which ge nerated this result tra nsmitted reference range : <=4.0. The reference r ozzy was not used to int erpret this result as normal/abnormal . [facility] HospitalExrdatgAAKHFWMNTT7985-31-19 06:44:00 Test Item Value Reference Range Interpretation Comments Lymphocytes (test code = Lymphocytes) 21.3 20.0-40.0 [facility] HospitalPstfcodKUSQSHOVNL5161-03-18 06:44:00 Test Item Value Reference Range Interpretation Comments Monocytes (test code = Monocytes) 2.7 2.0-12.0 [facility] HospitalMohioqcMEZHTKGTYE9136-86-40 06:44:00 Test Item Value Reference Range Interpretation Comments MPV (test code = MPV) 9.5 7.4-10.4 [facility] HospitalOyjaxxrJJYQMLIVAE5780-05-02 06:44:00 Test Item Value Reference Range Interpretation Comments RDW (test code = RDW) 17.8 11.5-14.5 [facility] HospitalNzigdaiKBJZIZCERS9774-25-84 06:44:00 Test Item Value Reference Range Interpretation Comments MCV (test code = MCV) 73.2 80.0-98.0 [facility] HospitalNjqujjiMKRUENVOKY5335-55-21 06:44:00 Test Item Value Reference Range Interpretation Comments MCH (test code = MCH) 21.9 pg 27.0-31.0 [facility] HospitalWiveghqYYNVPPPXTT2381-85-24 06:44:00 Test Item Value Reference Range Interpretation Comments Hct (test code = Hct) 27.2 36.0-48.0 [facility] HospitalLqgwfkvJZPFKKPGPR1765-06-16 06:44:00 Test Item Value Reference Range Interpretation Comments MCHC (test code = MCHC) 29.9 32.0-36.0 [facility] HospitalXzoinwmSXKAIRKYUX6345-86-59 06:44:00 Test Item Value Reference Range Interpretation Comments Platelet (test code = Platelet) 400 133-450 [facility] HospitalFkyrzrnTUKKPMAYWK5197-67-39 06:44:00 Test Item Value Reference Range Interpretation Comments WBC (test code = WBC) 12.4 3.7-10.4 [facility] HospitalTvztskhFVQVUSOEQM5429-64-76 06:44:00 Test Item Value Reference Range Interpretation Comments RBC (test code = RBC) 3.72 4.20-5.40 [facility] HospitalGtuwoqaYTOYVJDMOS2912-25-57 06:44:00 Test Item Value Reference Range Interpretation Comments Hgb (test code = Hgb) 8.1 12.0-16.0 [facility] HospitalPtpzkcmOKBNBABCRT7166-99-95 06:44:00 Test Item Value Reference Range Interpretation Comments PTT (test code = PTT) 27.2 s 22.9-35.8 [facility] HospitalPanuijiNNFAHJAKKA8040-53-55 06:44:00 Test Item Value Reference Range Interpretation Comments PT (test code = PT) 14.7 s 12.0-14.7 [facility] HospitalCmjooywQDITNSLSTG0133-29-76 06:44:00 Test Item Value Reference Range Interpretation Comments INR (test code = INR) 1.12 0.85-1.17 [facility] FRM Study Course [id number] 07:51:00 Test Item Value Reference Range Interpretation Comments ABO/Rh (test code = ABO/Rh) A POS [facility] FRM Study Course [id number] 07:51:00 Test Item Value Reference Range Interpretation Comments Antibody Scrn (test Negative (09/04/14 1:51 code = Antibody Scrn) AM) [facility] [id number] 07:51:00 Test Item Value Reference Range Interpretation Comments Albumin Lvl (test code = Albumin Lvl) 3.4 3.5-5.0 [facility] [id number] 07:51:00 Test Item Value Reference Range Interpretation Comments Alk Phos (test code = Alk Phos) 64 39-136 [facility] [id number] 07:51:00 Test Item Value Reference Range Interpretation Comments ALT (test code = ALT) 18 See_Comment [Auto mated message] The system which ge nerated this result transmit gaye reference range : <=65. The reference range was not used to interpr et this result as satish l/abnormal. [facility]2015-01-23 07:51:00 Test Item Value Reference Range Interpretation Comments AST (test code = AST) 12 See_Comment [Auto mated message] The system which ge nerated this result transmit gaye reference range : <=37. The reference range was not used to interpr et this result as satish l/abnormal. [facility]2015-01-23 07:51:00 Test Item Value Reference Range Interpretation Comments eGFR (test code = eGFR) 93 [facility]2015-01-23 07:51:00 Test Item Value Reference Range Interpretation Comments Bili Total (test code = Bili Total) 0.3 0.2-1.3 [place] [id number] 07:51:00 Test Item Value Reference Range Interpretation Comments Chloride Lvl (test code = Chloride Lvl) 108 95-109 [facility]2015-01-23 07:51:00 Test Item Value Reference Range Interpretation Comments Sodium Lvl (test code = Sodium Lvl) 138 135-145 [facility]2015-01-23 07:51:00 Test Item Value Reference Range Interpretation Comments Potassium Lvl (test code = Potassium 3.9 3.5-5.1 Lvl) [facility]2015-01-23 07:51:00 Test Item Value Reference Range Interpretation Comments CO2 (test code = CO2) 22 24-32 [facility]2015-01-23 07:51:00 Test Item Value Reference Range Interpretation Comments Calcium Lvl (test code = Calcium Lvl) 8.8 8.5-10.5 [facility]2015-01-23 07:51:00 Test Item Value Reference Range Interpretation Comments Glucose Lvl (test code = Glucose Lvl) 98 70-99 [facility]2015-01-23 07:51:00 Test Item Value Reference Range Interpretation Comments Total Protein (test code = Total 7.3 6.4-8.4 Protein) [facility] [facility] 07:[facility]00 Test Item Value Reference Range Interpretation Comments BUN (test code = BUN) 12 7-22 [facility]2015-01-23 07:51:00 Test Item Value Reference Range Interpretation Comments Creatinine Lvl (test code = Creatinine 0.8 0.5-1.4 Lvl) [facility]2015-01-23 07:51:00 Test Item Value Reference Range Interpretation Comments AGAP (test code = AGAP) 11.9 10.0-20.0 [facility]2015-01-23 07:51:00 Test Item Value Reference Range Interpretation Comments B/C Ratio (test code = B/C Ratio) 15 6-25 [facility]2015-01-23 07:51:00 Test Item Value Reference Range Interpretation Comments Globulin (test code = Globulin) 3.9 2.0-4.0 [facility]2015-01-23 07:51:00 Test Item Value Reference Range Interpretation Comments A/G Ratio (test code = A/G Ratio) 0.9 0.7-1.6 [facility]ps[facility]FXNDVWODTFOC6454-81-03 07:51:00 Test Item Value Reference Range Interpretation Comments hCG Tot (test code = hCG Tot) no gt [facility]DghxsyfOONBDGUJCK3600-93-15 07:51:00 Test Item Value Reference Range Interpretation Comments MCHC (test code = MCHC) 33.8 32.0-36.0 [facility] HospitalCqsucecATDFRQDXMU6476-27-60 07:51:00 Test Item Value Reference Range Interpretation Comments MCH (test code = MCH) 30.3 pg 27.0-31.0 [facility] HospitalUwpqsfzNJVLSYWDVH2221-80-25 07:51:00 Test Item Value Reference Range Interpretation Comments RDW (test code = RDW) 13.0 11.5-14.5 [facility] HospitalMtiffigDBQIGNALMO1072-51-75 07:51:00 Test Item Value Reference Range Interpretation Comments MPV (test code = MPV) 8.4 7.4-10.4 [facility] HospitalEmencdqMOAGEZASLO9160-85-77 07:51:00 Test Item Value Reference Range Interpretation Comments Platelet (test code = Platelet) 356 133-450 [facility] HospitalGmhradzQXZHAYDKOY3978-27-54 07:51:00 Test Item Value Reference Range Interpretation Comments RBC (test code = RBC) 4.45 4.20-5.40 [facility] HospitalNhckivwGPXMEIRCXU2578-00-98 07:51:00 Test Item Value Reference Range Interpretation Comments WBC (test code = WBC) 12.9 3.7-10.4 [facility] HospitalWvxmzwaJKDVQINUQD6592-52-89 07:51:00 Test Item Value Reference Range Interpretation Comments Hgb (test code = Hgb) 13.5 12.0-16.0 [facility] HospitalBxziwrgVYYBTNLGPL8007-61-91 07:51:00 Test Item Value Reference Range Interpretation Comments MCV (test code = MCV) 89.7 80.0-98.0 [facility] HospitalXowkqzqFGYFEEPNVX4621-84-47 07:51:00 Test Item Value Reference Range Interpretation Comments Hct (test code = Hct) 39.9 36.0-48.0 [facility] HospitalTzprpvzWSGQSQVQPD0601-60-95 07:51:00 Test Item Value Reference Range Interpretation Comments Eosinophils # (test code 0.3 See_Comment [A utomated message] The = Eosinophils #) system whic h generated this result tra nsmitted reference range : <=0.5. The reference r ozzy was not used to int erpret this result as normal/abnormal . [facility] HospitalFylejkpWQQQUUKURB8709-91-64 07:51:00 Test Item Value Reference Range Interpretation Comments Lymphocytes # (test code = Lymphocytes 3.6 1.0-5.5 #) [facility] HospitalOuhpcbvZISOFMYUAW2433-69-52 07:51:00 Test Item Value Reference Range Interpretation Comments Monocytes # (test code 0.7 See_Comment [Aut omated message] The = Monocytes #) system which generated this result tra nsmitted reference range : <=0.8. The reference r ozzy was not used to int erpret this result as normal/abnormal . [facility] HospitalSqubqqoCFMUAPVEGS2273-73-95 07:51:00 Test Item Value Reference Range Interpretation Comments Segs (test code = Segs) 63.9 45.0-75.0 [facility] HospitalZgxfepaUQFNITGSEN7491-26-84 07:51:00 Test Item Value Reference Range Interpretation Comments Segs-Bands # (test code = Segs-Bands #) 8.2 1.5-8.1 [facility] HospitalCultinoJCXAMPKXWR3935-21-93 07:51:00 Test Item Value Reference Range Interpretation Comments Basophils (test code = 0.7 See_Comment [Aut omated message] The Basophils) system which ge nerated this result tra nsmitted reference range : <=1.0. The reference r ozzy was not used to int erpret this result as normal/abnormal . [facility] HospitalQchhonvRIKGUASSVR6868-75-25 07:51:00 Test Item Value Reference Range Interpretation Comments Monocytes (test code = Monocytes) 5.4 2.0-12.0 [facility] HospitalVtmhnvgTTHDEIOYRD5049-81-73 07:51:00 Test Item Value Reference Range Interpretation Comments Eosinophils (test code = 2.3 See_Comment [A utomated message] The Eosinophils) system which ge nerated this result tra nsmitted reference range : <=4.0. The reference r ozzy was not used to int erpret this result as normal/abnormal . [facility] HospitalGyuuicjRDNNHFAIDJ0139-21-82 07:51:00 Test Item Value Reference Range Interpretation Comments Lymphocytes (test code = Lymphocytes) 27.7 20.0-40.0 [facility] HospitalDryxqroZUWMRWKKIC1036-61-03 07:51:00 Test Item Value Reference Range Interpretation Comments Basophils # (test code 0.1 See_Comment [Aut omated message] The = Basophils #) system which generated this result tra nsmitted reference range : <=0.2. The reference r ozzy was not used to int erpret this result as normal/abnormal . [facility] AND [id number] 07:51:00 Test Item Value Reference Range Interpretation Comments UA Urobilinogen (test code = UA 1.0 0.1-1.0 Urobilinogen) [facility] AND [id number] 07:51:00 Test Item Value Reference Range Interpretation Comments UA Turbidity (test code Cloudy *ABN*(09/04/14 = UA Turbidity) 1:51 AM) [facility] AND [id number] 07:51:00 Test Item Value Reference Range Interpretation Comments UA Color (test code = Red *ABN*(09/04/14 1:51 UA Color) AM) [facility] AND [id number] 07:51:00 Test Item Value Reference Range Interpretation Comments UA Ketones (test code Negative *NA*(09/04/14 = UA Ketones) 1:51 AM) [facility] AND [id number] 07:51:00 Test Item Value Reference Range Interpretation Comments UA Glucose (test code Negative (09/04/14 1:51 = UA Glucose) AM) [facility] AND [id number] 07:51:00 Test Item Value Reference Range Interpretation Comments UA Protein (test code = Trace *ABN*(09/04/14 UA Protein) 1:51 AM) [facility] AND [id number] 07:51:00 Test Item Value Reference Range Interpretation Comments UA pH (test code = UA pH) 8.0 1 5.0-8.0 [facility] AND [id number] 07:51:00 Test Item Value Reference Range Interpretation Comments UA Spec Grav (test code = UA Spec 1.015 1 Grav) [facility] AND [id number] 07:51:00 Test Item Value Reference Range Interpretation Comments UA Bili (test code = Negative *NA*(09/04/14 UA Bili) 1:51 AM) [facility] AND [id number] 07:51:00 Test Item Value Reference Range Interpretation Comments UA Blood (test code = Large *ABN*(09/04/14 UA Blood) 1:51 AM) [facility] AND [id number] 07:51:00 Test Item Value Reference Range Interpretation Comments UA Leuk Est (test Negative (09/04/14 1:51 code = UA Leuk Est) AM) [facility] AND [id number] 07:51:00 Test Item Value Reference Range Interpretation Comments UA Nitrite (test code Negative (09/04/14 1:51 = UA Nitrite) AM) [facility] AND [id number] 07:51:00 Test Item Value Reference Range Interpretation Comments UA Amorph Joselin (test code = UA Few /HPF Amorph Joselin) [facility] AND [id number] 07:51:00 Test Item Value Reference Range Interpretation Comments UA RBC (test code 51-100 /HPF See_Comment [Automate d message] The = UA RBC) system which ge nerated this result tra nsmitted reference range : <=2. The reference r ozzy was not used to int erpret this result as normal/abnormal . [facility] AND [id number] 07:51:00 Test Item Value Reference Range Interpretation Comments UA WBC (test code = UA WBC) 6-10 /HPF [facility] AND [id number] 07:51:00 Test Item Value Reference Range Interpretation Comments UA Bacteria (test code = UA Few /HPF Bacteria) [facility] [id number] 07:51:00 Test Item Value Reference Range Interpretation Comments UA Sq Epi (test code = UA Sq Occasional /LPF Epi) [facility] CenterCHEM [id number] 07:51:00 Test Item Value Reference Range Interpretation Comments Globulin (test code = Globulin) 3.9 2.0-4.0 [facility] CenterCHEM [id number] 07:51:00 Test Item Value Reference Range Interpretation Comments A/G Ratio (test code = A/G Ratio) 0.9 0.7-1.6 [facility] CenterXycbczyFTYWAMGXHAGOS4922-89-02 07:51:00 Test Item Value Reference Range Interpretation Comments hCG Tot (test code = hCG Tot) no gt [facility] HospitalZohsjrhYVYWZXULOG9017-22-48 07:51:00 Test Item Value Reference Range Interpretation Comments MCHC (test code = MCHC) 33.8 32.0-36.0 [facility] HospitalGcajxkdFLKPHUYJIY9897-61-70 07:51:00 Test Item Value Reference Range Interpretation Comments MCH (test code = MCH) 30.3 pg 27.0-31.0 [facility] HospitalMvdlsbjOPAMVPSTIX3635-25-61 07:51:00 Test Item Value Reference Range Interpretation Comments RDW (test code = RDW) 13.0 11.5-14.5 [facility] HospitalNxfxxxgDOPIPCNANH3361-31-89 07:51:00 Test Item Value Reference Range Interpretation Comments MPV (test code = MPV) 8.4 7.4-10.4 [facility] HospitalQtehnqvVAXGIVYHJT3272-03-55 07:51:00 Test Item Value Reference Range Interpretation Comments Platelet (test code = Platelet) 356 133-450 [facility] HospitalBseuzezFQROHKSQYR4544-85-99 07:51:00 Test Item Value Reference Range Interpretation Comments RBC (test code = RBC) 4.45 4.20-5.40 [facility] HospitalHnykxwiKRVHNMHPEV5602-31-12 07:51:00 Test Item Value Reference Range Interpretation Comments WBC (test code = WBC) 12.9 3.7-10.4 [facility] HospitalKuamsfkNVUJOHPCCL2870-86-14 07:51:00 Test Item Value Reference Range Interpretation Comments Hgb (test code = Hgb) 13.5 12.0-16.0 [facility] HospitalUnfdbdzPXSEWFPWBG3472-65-76 07:51:00 Test Item Value Reference Range Interpretation Comments MCV (test code = MCV) 89.7 80.0-98.0 [facility] HospitalOlgyqbvUFTFAMOCFM0779-25-75 07:51:00 Test Item Value Reference Range Interpretation Comments Hct (test code = Hct) 39.9 36.0-48.0 [facility] HospitalTlgjohgWTAAPYZPTN1342-99-76 07:51:00 Test Item Value Reference Range Interpretation Comments Eosinophils # (test code 0.3 See_Comment [A utomated message] The = Eosinophils #) system whic h generated this result tra nsmitted reference range : <=0.5. The reference r ozzy was not used to int erpret this result as normal/abnormal . [facility] HospitalDqceageKQGIWOPONH4942-35-23 07:51:00 Test Item Value Reference Range Interpretation Comments Lymphocytes # (test code = Lymphocytes 3.6 1.0-5.5 #) [facility] HospitalMjfhexlMKNTICLSBL5668-49-15 07:51:00 Test Item Value Reference Range Interpretation Comments Monocytes # (test code 0.7 See_Comment [Aut omated message] The = Monocytes #) system which generated this result tra nsmitted reference range : <=0.8. The reference r ozzy was not used to int erpret this result as normal/abnormal . [facility] HospitalKxjckwjYCZHYLPSZS6084-05-12 07:51:00 Test Item Value Reference Range Interpretation Comments Segs (test code = Segs) 63.9 45.0-75.0 [facility] HospitalNuyacttOLVSTTYELI6623-56-61 07:51:00 Test Item Value Reference Range Interpretation Comments Segs-Bands # (test code = Segs-Bands #) 8.2 1.5-8.1 [facility] HospitalZmlvvwjWSZMPCQNVK5004-56-18 07:51:00 Test Item Value Reference Range Interpretation Comments Basophils (test code = 0.7 See_Comment [Aut omated message] The Basophils) system which ge nerated this result tra nsmitted reference range : <=1.0. The reference r ozzy was not used to int erpret this result as normal/abnormal . [facility] HospitalUzrgcemTUCNRBMTIH6636-28-08 07:51:00 Test Item Value Reference Range Interpretation Comments Monocytes (test code = Monocytes) 5.4 2.0-12.0 [facility] HospitalIhoshyzHDXUNSDAMP6580-42-47 07:51:00 Test Item Value Reference Range Interpretation Comments Eosinophils (test code = 2.3 See_Comment [A utomated message] The Eosinophils) system which ge nerated this result tra nsmitted reference range : <=4.0. The reference r ozzy was not used to int erpret this result as normal/abnormal . [facility] HospitalRgpknncBCHOYYHVXF0394-77-35 07:51:00 Test Item Value Reference Range Interpretation Comments Lymphocytes (test code = Lymphocytes) 27.7 20.0-40.0 [facility] HospitalKhlxopzOVTOXHJFSK7552-07-49 07:51:00 Test Item Value Reference Range Interpretation Comments Basophils # (test code 0.1 See_Comment [Aut omated message] The = Basophils #) system which generated this result tra nsmitted reference range : <=0.2. The reference r ozzy was not used to int erpret this result as normal/abnormal . [facility] AND [id number] 07:51:00 Test Item Value Reference Range Interpretation Comments UA Urobilinogen (test code = UA 1.0 0.1-1.0 Urobilinogen) [facility] AND [id number] 07:51:00 Test Item Value Reference Range Interpretation Comments UA Turbidity (test code Cloudy *ABN*(09/04/14 = UA Turbidity) 1:51 AM) [facility] AND [id number] 07:51:00 Test Item Value Reference Range Interpretation Comments UA Color (test code = Red *ABN*(09/04/14 1:51 UA Color) AM) [facility] AND [id number] 07:51:00 Test Item Value Reference Range Interpretation Comments UA Ketones (test code Negative *NA*(09/04/14 = UA Ketones) 1:51 AM) [facility] AND [id number] 07:51:00 Test Item Value Reference Range Interpretation Comments UA Glucose (test code Negative (09/04/14 1:51 = UA Glucose) AM) [facility] AND [id number] 07:51:00 Test Item Value Reference Range Interpretation Comments UA Protein (test code = Trace *ABN*(09/04/14 UA Protein) 1:51 AM) [facility] AND [id number] 07:51:00 Test Item Value Reference Range Interpretation Comments UA pH (test code = UA pH) 8.0 1 5.0-8.0 [facility] AND [id number] 07:51:00 Test Item Value Reference Range Interpretation Comments UA Spec Grav (test code = UA Spec 1.015 1 Grav) [facility] AND [id number] 07:51:00 Test Item Value Reference Range Interpretation Comments UA Bili (test code = Negative *NA*(09/04/14 UA Bili) 1:51 AM) [facility] AND [id number] 07:51:00 Test Item Value Reference Range Interpretation Comments UA Blood (test code = Large *ABN*(09/04/14 UA Blood) 1:51 AM) [facility] AND [id number] 07:51:00 Test Item Value Reference Range Interpretation Comments UA Leuk Est (test Negative (09/04/14 1:51 code = UA Leuk Est) AM) [facility] AND [id number] 07:51:00 Test Item Value Reference Range Interpretation Comments UA Nitrite (test code Negative (09/04/14 1:51 = UA Nitrite) AM) [facility] AND [id number] 07:51:00 Test Item Value Reference Range Interpretation Comments UA Amorph Joselin (test code = UA Few /HPF Amorph Joselin) [facility] AND [id number] 07:51:00 Test Item Value Reference Range Interpretation Comments UA RBC (test code 51-100 /HPF See_Comment [Automate d message] The = UA RBC) system which ge nerated this result tra nsmitted reference range : <=2. The reference r ozzy was not used to int erpret this result as normal/abnormal . [facility] AND [id number] 07:51:00 Test Item Value Reference Range Interpretation Comments UA WBC (test code = UA WBC) 6-10 /HPF [facility] AND [id number] 07:51:00 Test Item Value Reference Range Interpretation Comments UA Bacteria (test code = UA Few /HPF Bacteria) [facility] AND [id number] 07:51:00 Test Item Value Reference Range Interpretation Comments UA Sq Epi (test code = UA Sq Occasional /LPF Epi) [facility] [id number] 07:51:00 Test Item Value Reference Range Interpretation Comments ABO/Rh (test code = ABO/Rh) A POS [facility] CenterMachine [employer] [facility] [id number] 07:51:00 Test Item Value Reference Range Interpretation Comments Antibody Scrn (test Negative (09/04/14 1:51 code = Antibody Scrn) AM) [facility] [id number] 07:51:00 Test Item Value Reference Range Interpretation Comments Albumin Lvl (test code = Albumin Lvl) 3.4 3.5-5.0 [facility] [id number] 07:51:00 Test Item Value Reference Range Interpretation Comments Alk Phos (test code = Alk Phos) 64 39-136 [facility] [employer] [id number] 07:51:00 Test Item Value Reference Range Interpretation Comments ALT (test code = ALT) 18 See_Comment [Auto mated message] The system which ge nerated this result transmit gaye reference range : <=65. The reference range was not used to interpr et this result as satish l/abnormal. [facility] [id number] 07:51:00 Test Item Value Reference Range Interpretation Comments AST (test code = AST) 12 See_Comment [Auto mated message] The system which ge nerated this result transmit gaye reference range : <=37. The reference range was not used to interpr et this result as satish l/abnormal. [facility] [employer] [id number] 07:51:00 Test Item Value Reference Range Interpretation Comments eGFR (test code = eGFR) 93 [facility] [id number] 07:51:00 Test Item Value Reference Range Interpretation Comments Bili Total (test code = Bili Total) 0.3 0.2-1.3 [facility] [employer] [id number] 07:51:00 Test Item Value Reference Range Interpretation Comments Chloride Lvl (test code = Chloride Lvl) 108 95-109 [facility] [id number] 07:51:00 Test Item Value Reference Range Interpretation Comments Sodium Lvl (test code = Sodium Lvl) 138 135-145 [facility] [id number] 07:51:00 Test Item Value Reference Range Interpretation Comments Potassium Lvl (test code = Potassium 3.9 3.5-5.1 Lvl) [facility]2015-01-23 07:51:00 Test Item Value Reference Range Interpretation Comments CO2 (test code = CO2) 22 24-32 [facility]2015-01-23 07:51:00 Test Item Value Reference Range Interpretation Comments Calcium Lvl (test code = Calcium Lvl) 8.8 8.5-10.5 [facility]2015-01-23 07:51:00 Test Item Value Reference Range Interpretation Comments Glucose Lvl (test code = Glucose Lvl) 98 70-99 [facility]2015-01-23 07:51:00 Test Item Value Reference Range Interpretation Comments Total Protein (test code = Total 7.3 6.4-8.4 Protein) [facility]2015-01-23 07:51:00 Test Item Value Reference Range Interpretation Comments BUN (test code = BUN) 12 - [facility]2015-01-23 07:51:00 Test Item Value Reference Range Interpretation Comments Creatinine Lvl (test code = Creatinine 0.8 0.5-1.4 Lvl) [facility]2015-01-23 07:51:00 Test Item Value Reference Range Interpretation Comments AGAP (test code = AGAP) 11.9 10.0-20.0 [facility]2015-01-23 07:51:00 Test Item Value Reference Range Interpretation Comments B/C Ratio (test code = B/C Ratio) 15 6-25 [facility]2015-01-23 07:51:00 Test Item Value Reference Range Interpretation Comments Globulin (test code = Globulin) 3.9 2.0-4.0 [facility]2015-01-23 07:51:00 Test Item Value Reference Range Interpretation Comments A/G Ratio (test code = A/G Ratio) 0.9 0.7-1.6 [facility]TrstkfjPZXJQYXLZEYWJ6756-07-77 07:51:00 Test Item Value Reference Range Interpretation Comments hCG Tot (test code = hCG Tot) no gt [facility] HospitalHyfnwlgUGSECUAMFU0624-52-99 07:51:00 Test Item Value Reference Range Interpretation Comments MCHC (test code = MCHC) 33.8 32.0-36.0 [facility] HospitalFbkwrfgTVBTBZBZED8877-18-39 07:51:00 Test Item Value Reference Range Interpretation Comments MCH (test code = MCH) 30.3 pg 27.0-31.0 [facility] HospitalBeoxyamIIGGVOANUE1151-59-83 07:51:00 Test Item Value Reference Range Interpretation Comments RDW (test code = RDW) 13.0 11.5-14.5 [place] [id number] 07:51:00 Test Item Value Reference Range Interpretation Comments MPV (test code = MPV) 8.4 7.4-10.4 [facility] HospitalUrpudcjUKLQPWSDVA9521-95-41 07:51:00 Test Item Value Reference Range Interpretation Comments Platelet (test code = Platelet) 356 133-450 [facility] HospitalGdepompFQMYOESPBJ3980-18-74 07:51:00 Test Item Value Reference Range Interpretation Comments RBC (test code = RBC) 4.45 4.20-5.40 [place] 792725-01-23 07:51:00 Test Item Value Reference Range Interpretation Comments WBC (test code = WBC) 12.9 3.7-10.4 [facility] HospitalCcpcjptRHQETTXSDT5856-57-67 07:51:00 Test Item Value Reference Range Interpretation Comments Hgb (test code = Hgb) 13.5 12.0-16.0 [facility] HospitalYukxcgwMLAXJUPKVY9830-20-22 07:51:00 Test Item Value Reference Range Interpretation Comments MCV (test code = MCV) 89.7 80.0-98.0 [facility] HospitalIcnqzftOMQASWPEXA0874-98-55 07:51:00 Test Item Value Reference Range Interpretation Comments Hct (test code = Hct) 39.9 36.0-48.0 [facility] HospitalKlqvhayKKHOLZPLNS8007-63-29 07:51:00 Test Item Value Reference Range Interpretation Comments Eosinophils # (test code 0.3 See_Comment [A utomated message] The = Eosinophils #) system whic h generated this result tra nsmitted reference range : <=0.5. The reference r ozzy was not used to int erpret this result as normal/abnormal . [facility] HospitalHaqwnfeOXOHGMYKKU3705-24-41 07:51:00 Test Item Value Reference Range Interpretation Comments Lymphocytes # (test code = Lymphocytes 3.6 1.0-5.5 #) [facility] HospitalXetcxoqRVFVQKUQCT3838-51-09 07:51:00 Test Item Value Reference Range Interpretation Comments Monocytes # (test code 0.7 See_Comment [Aut omated message] The = Monocytes #) system which generated this result tra nsmitted reference range : <=0.8. The reference r ozzy was not used to int erpret this result as normal/abnormal . [facility] HospitalTfzjgcqSTQFZLFZDZ0779-30-69 07:51:00 Test Item Value Reference Range Interpretation Comments Segs (test code = Segs) 63.9 45.0-75.0 [facility] HospitalCdutuowLNRBJSAFEK8958-13-22 07:51:00 Test Item Value Reference Range Interpretation Comments Segs-Bands # (test code = Segs-Bands #) 8.2 1.5-8.1 [facility] HospitalUrunaphGYWBZOIHHS7937-10-63 07:51:00 Test Item Value Reference Range Interpretation Comments Basophils (test code = 0.7 See_Comment [Aut omated message] The Basophils) system which ge nerated this result tra nsmitted reference range : <=1.0. The reference r ozzy was not used to int erpret this result as normal/abnormal . [facility] HospitalNltpcmlOHDGPBZOUU1087-27-06 07:51:00 Test Item Value Reference Range Interpretation Comments Monocytes (test code = Monocytes) 5.4 2.0-12.0 [facility] HospitalRvzrrniMFOXRTTSDB3885-65-69 07:51:00 Test Item Value Reference Range Interpretation Comments Eosinophils (test code = 2.3 See_Comment [A utomated message] The Eosinophils) system which ge nerated this result tra nsmitted reference range : <=4.0. The reference r ozzy was not used to int erpret this result as normal/abnormal . [id number] 07:51:00 Test Item Value Reference Range Interpretation Comments Lymphocytes (test code = Lymphocytes) 27.7 20.0-40.0 [facility] H[id number] 07:51:00 Test Item Value Reference Range Interpretation Comments Basophils # (test code 0.1 See_Comment [Aut omated message] The = Basophils #) system which generated this result tra nsmitted reference range : <=0.2. The reference r ozzy was not used to int erpret this result as normal/abnormal . [facility]2015-01-23 07:51:00 Test Item Value Reference Range Interpretation Comments UA Urobilinogen (test code = UA 1.0 0.1-1.0 Urobilinogen) [facility] AND [id number] 07:51:00 Test Item Value Reference Range Interpretation Comments UA Turbidity (test code Cloudy *ABN*(09/04/14 = UA Turbidity) 1:51 AM) [facility] AND [id number] 07:51:00 Test Item Value Reference Range Interpretation Comments UA Color (test code = Red *ABN*(09/04/14 1:51 UA Color) AM) [facility] AND [id number] 07:51:00 Test Item Value Reference Range Interpretation Comments UA Ketones (test code Negative *NA*(09/04/14 = UA Ketones) 1:51 AM) [facility] AND [id number] 07:51:00 Test Item Value Reference Range Interpretation Comments UA Glucose (test code Negative (09/04/14 1:51 = UA Glucose) AM) [facility] AND [id number] 07:51:00 Test Item Value Reference Range Interpretation Comments UA Protein (test code = Trace *ABN*(09/04/14 UA Protein) 1:51 AM) [facility] AND [id number] 07:51:00 Test Item Value Reference Range Interpretation Comments UA pH (test code = UA pH) 8.0 1 5.0-8.0 [facility] AND [id number] 07:51:00 Test Item Value Reference Range Interpretation Comments UA Spec Grav (test code = UA Spec 1.015 1 Grav) [facility] AND [id number] 07:51:00 Test Item Value Reference Range Interpretation Comments UA Bili (test code = Negative *NA*(09/04/14 UA Bili) 1:51 AM) [facility] AND [id number] 07:51:00 Test Item Value Reference Range Interpretation Comments UA Blood (test code = Large *ABN*(09/04/14 UA Blood) 1:51 AM) [facility] AND [id number] 07:51:00 Test Item Value Reference Range Interpretation Comments UA Leuk Est (test Negative (09/04/14 1:51 code = UA Leuk Est) AM) [facility] AND [id number] 07:51:00 Test Item Value Reference Range Interpretation Comments UA Nitrite (test code Negative (09/04/14 1:51 = UA Nitrite) AM) [facility] AND [id number] 07:51:00 Test Item Value Reference Range Interpretation Comments UA Amorph Joselin (test code = UA Few /HPF Amorph Joselin) [facility] AND [id number] 07:51:00 Test Item Value Reference Range Interpretation Comments UA RBC (test code 51-100 /HPF See_Comment [Automate d message] The = UA RBC) system which ge nerated this result tra nsmitted reference range : <=2. The reference r ozzy was not used to int erpret this result as normal/abnormal . [facility] AND [id number] 07:51:00 Test Item Value Reference Range Interpretation Comments UA WBC (test code = UA WBC) 6-10 /HPF [facility] AND [id number] 07:51:00 Test Item Value Reference Range Interpretation Comments UA Bacteria (test code = UA Few /HPF Bacteria) [facility] AND [id number] 07:51:00 Test Item Value Reference Range Interpretation Comments UA Sq Epi (test code = UA Sq Occasional /LPF Epi) [facility] [employer] [id number] 07:51:00 Test Item Value Reference Range Interpretation Comments ABO/Rh (test code = ABO/Rh) A POS [facility] [employer] [id number] 07:51:00 Test Item Value Reference Range Interpretation Comments Antibody Scrn (test Negative (09/04/14 1:51 code = Antibody Scrn) AM) [facility] [employer] [id number] 07:51:00 Test Item Value Reference Range Interpretation Comments Albumin Lvl (test code = Albumin Lvl) 3.4 3.5-5.0 [facility] [employer] [id number] 07:51:00 Test Item Value Reference Range Interpretation Comments Alk Phos (test code = Alk Phos) 64 39-136 [facility] [employer] [id number] 07:51:00 Test Item Value Reference Range Interpretation Comments ALT (test code = ALT) 18 See_Comment [Auto mated message] The system which ge nerated this result transmit gaye reference range : <=65. The reference range was not used to interpr et this result as satish l/abnormal. [facility]2015-01-23 07:51:00 Test Item Value Reference Range Interpretation Comments AST (test code = AST) 12 See_Comment [Auto mated message] The system which ge nerated this result transmit gaye reference range : <=37. The reference range was not used to interpr et this result as satish l/abnormal. [facility]2015-01-23 07:51:00 Test Item Value Reference Range Interpretation Comments eGFR (test code = eGFR) 93 [facility]2015-01-23 07:51:00 Test Item Value Reference Range Interpretation Comments Bili Total (test code = Bili Total) 0.3 0.2-1.3 [place] [id number] 07:51:00 Test Item Value Reference Range Interpretation Comments Chloride Lvl (test code = Chloride Lvl) 108 95-109 [facility]2015-01-23 07:51:00 Test Item Value Reference Range Interpretation Comments Sodium Lvl (test code = Sodium Lvl) 138 135-145 [facility]2015-01-23 07:51:00 Test Item Value Reference Range Interpretation Comments Potassium Lvl (test code = Potassium 3.9 3.5-5.1 Lvl) [facility]2015-01-23 07:51:00 Test Item Value Reference Range Interpretation Comments CO2 (test code = CO2) 22 24-32 [facility]2015-01-23 07:51:00 Test Item Value Reference Range Interpretation Comments Calcium Lvl (test code = Calcium Lvl) 8.8 8.5-10.5 [facility]2015-01-23 07:51:00 Test Item Value Reference Range Interpretation Comments Glucose Lvl (test code = Glucose Lvl) 98 70-99 [facility]2015-01-23 07:51:00 Test Item Value Reference Range Interpretation Comments Total Protein (test code = Total 7.3 6.4-8.4 Protein) [facility]2015-01-23 07:51:00 Test Item Value Reference Range Interpretation Comments BUN (test code = BUN) 12 7-22 [facility]2015-01-23 07:51:00 Test Item Value Reference Range Interpretation Comments Creatinine Lvl (test code = Creatinine 0.8 0.5-1.4 Lvl) [facility]2015-01-23 07:51:00 Test Item Value Reference Range Interpretation Comments AGAP (test code = AGAP) 11.9 10.0-20.0 [facility]2015-01-23 07:51:00 Test Item Value Reference Range Interpretation Comments B/C Ratio (test code = B/C Ratio) 15 6-25 [facility]2015-01-12 19:24:00 Test Item Value Reference Range Interpretation Comments Lipase Lvl (test code = Lipase Lvl) 104 73-393 [facility]2015-01-12 19:24:00 Test Item Value Reference Range Interpretation Comments eGFR (test code = eGFR) 109 [facility]2015-01-12 19:24:00 Test Item Value Reference Range Interpretation Comments Bili Total (test code = Bili Total) 0.6 0.2-1.3 [facility]2015-01-12 19:24:00 Test Item Value Reference Range Interpretation Comments Alk Phos (test code = Alk Phos) 72 39-136 [facility]2015-01-12 19:24:00 Test Item Value Reference Range Interpretation Comments Calcium Lvl (test code = Calcium Lvl) 8.8 8.5-10.5 [facility]2015-01-12 19:24:00 Test Item Value Reference Range Interpretation Comments CO2 (test code = CO2) 28 24-32 [facility]2015-01-12 19:24:00 Test Item Value Reference Range Interpretation Comments Chloride Lvl (test code = Chloride Lvl) 107 95-109 [facility]2015-01-12 19:24:00 Test Item Value Reference Range Interpretation Comments Potassium Lvl (test code = Potassium 3.9 3.5-5.1 Lvl) [facility]2015-01-12 19:24:00 Test Item Value Reference Range Interpretation Comments Glucose Lvl (test code = Glucose Lvl) 90 70-99 [facility]2015-01-12 19:24:00 Test Item Value Reference Range Interpretation Comments Sodium Lvl (test code = Sodium Lvl) 138 135-145 [facility]2015-01-12 19:24:00 Test Item Value Reference Range Interpretation Comments BUN (test code = BUN) 7 7-22 [facility]2015-01-12 19:24:00 Test Item Value Reference Range Interpretation Comments Creatinine Lvl (test code = Creatinine 0.7 0.5-1.4 Lvl) [facility]2015-01-12 19:24:00 Test Item Value Reference Range Interpretation Comments ALT (test code = ALT) 23 See_Comment [Auto mated message] The system which ge nerated this result transmit gaye reference range : <=65. The reference range was not used to interpr et this result as satish l/abnormal. [facility]2015-01-12 19:24:00 Test Item Value Reference Range Interpretation Comments AST (test code = AST) 12 See_Comment [Auto mated message] The system which ge nerated this result transmit gaye reference range : <=37. The reference range was not used to interpr et this result as satish l/abnormal. [facility]2015-01-12 19:24:00 Test Item Value Reference Range Interpretation Comments Albumin Lvl (test code = Albumin Lvl) 3.8 3.5-5.0 [facility]2015-01-12 19:24:00 Test Item Value Reference Range Interpretation Comments Total Protein (test code = Total 8.0 6.4-8.4 Protein) [facility]2015-01-12 19:24:00 Test Item Value Reference Range Interpretation Comments A/G Ratio (test code = A/G Ratio) 0.9 0.7-1.6 [facility]2015-01-12 19:24:00 Test Item Value Reference Range Interpretation Comments AGAP (test code = AGAP) 6.9 10.0-20.0 [facility]2015-01-12 19:24:00 Test Item Value Reference Range Interpretation Comments B/C Ratio (test code = B/C Ratio) 10 6-25 [facility]2015-01-12 19:24:00 Test Item Value Reference Range Interpretation Comments Globulin (test code = Globulin) 4.2 2.0-4.0 [id number] 19:24:00 Test Item Value Reference Range Interpretation Comments S Preg (test code = S Negative *NA*(08/24/14 Preg) 1:24 PM) [facility]TyovxjxTWVTUTHMWV7074-76-06 19:24:00 Test Item Value Reference Range Interpretation Comments WBC (test code = WBC) 11.3 3.7-10.4 [facility] Hospit[id number] 19:24:00 Test Item Value Reference Range Interpretation Comments RBC (test code = RBC) 4.75 4.20-5.40 [facility] Hospit[id number] 19:24:00 Test Item Value Reference Range Interpretation Comments Platelet (test code = Platelet) 402 133-450 [facility] Ho[id number] 19:24:00 Test Item Value Reference Range Interpretation Comments MCV (test code = MCV) 89.9 80.0-98.0 [facility] H[id number] 19:24:00 Test Item Value Reference Range Interpretation Comments Hct (test code = Hct) 42.7 36.0-48.0 [facility] Hos[id number] 19:24:00 Test Item Value Reference Range Interpretation Comments Hgb (test code = Hgb) 14.5 12.0-16.0 [facility] Hospit[id number] 19:24:00 Test Item Value Reference Range Interpretation Comments RDW (test code = RDW) 13.5 11.5-14.5 [facility] Hos[id number] 19:24:00 Test Item Value Reference Range Interpretation Comments MCHC (test code = MCHC) 34.0 32.0-36.0 [facility] HospitalEfhcliwDEFLKTYTRN9594-68-00 19:24:00 Test Item Value Reference Range Interpretation Comments MCH (test code = MCH) 30.6 pg 27.0-31.0 [facility] Ho[id number] 19:24:00 Test Item Value Reference Range Interpretation Comments MPV (test code = MPV) 8.1 7.4-10.4 [facility] HospitalSyhcdocZZWJJVVQXA4286-10-70 19:24:00 Test Item Value Reference Range Interpretation Comments Stomatocyte (test code = Stomatocyte) Slight [facility] Hospit[id number] 19:24:00 Test Item Value Reference Range Interpretation Comments Basophils # (test code 0.1 See_Comment [Aut omated message] The = Basophils #) system which generated this result tra nsmitted reference range : <=0.2. The reference r ozzy was not used to int erpret this result as normal/abnormal . [facility] HospitalEvirbwqDESKVTRPAO3982-38-37 19:24:00 Test Item Value Reference Range Interpretation Comments Eosinophils # (test code 0.2 See_Comment [A utomated message] The = Eosinophils #) system whic h generated this result tra nsmitted reference range : <=0.5. The reference r ozzy was not used to int erpret this result as normal/abnormal . [facility] HospitalMvwwqscANNRRPGSSF8950-00-72 19:24:00 Test Item Value Reference Range Interpretation Comments Hypochrom (test code = 1+ (08/24/14 1:24 PM) Hypochrom) [facility] HospitalYfpvvkqEOGNFQHTUV3857-40-88 19:24:00 Test Item Value Reference Range Interpretation Comments Lymphocytes # (test code = Lymphocytes 2.8 1.0-5.5 #) [facility] HospitalQdlvbxlPJEGAWSKWG5515-36-75 19:24:00 Test Item Value Reference Range Interpretation Comments Segs-Bands # (test code = Segs-Bands #) 8.1 1.5-8.1 [facility] HospitalDklpqhuWMIJKLVEFB9523-57-90 19:24:00 Test Item Value Reference Range Interpretation Comments Monocytes # (test code 0.2 See_Comment [Aut omated message] The = Monocytes #) system which generated this result tra nsmitted reference range : <=0.8. The reference r ozzy was not used to int erpret this result as normal/abnormal . [facility] HospitalIfaushbWLQBMBXHOH7055-96-54 19:24:00 Test Item Value Reference Range Interpretation Comments Lymphocytes (test code = Lymphocytes) 24.5 20.0-40.0 [facility] HospitalDgirziqIEGDRXQUYD5566-25-30 19:24:00 Test Item Value Reference Range Interpretation Comments Segs (test code = Segs) 71.8 45.0-75.0 [facility] HospitalFxllcbgBVUTMLNBCL1862-54-36 19:24:00 Test Item Value Reference Range Interpretation Comments Basophils (test code = 0.6 See_Comment [Aut omated message] The Basophils) system which ge nerated this result tra nsmitted reference range : <=1.0. The reference r ozzy was not used to int erpret this result as normal/abnormal . [facility] HospitalLxthkntYZCBGNRYEI4871-52-60 19:24:00 Test Item Value Reference Range Interpretation Comments Monocytes (test code = Monocytes) 1.5 2.0-12.0 [facility] HospitalZuqplstVSMQYZAYQI6834-13-07 19:24:00 Test Item Value Reference Range Interpretation Comments Eosinophils (test code = 1.6 See_Comment [A utomated message] The Eosinophils) system which ge nerated this result tra nsmitted reference range : <=4.0. The reference r ozzy was not used to int erpret this result as normal/abnormal . [facility] HospitalHyitrsvHPNFXQFPJX8010-02-99 19:24:00 Test Item Value Reference Range Interpretation Comments Plt Morph (test code = Normal (08/24/14 1:24 Plt Morph) PM) [facility] AND [id number] 19:24:00 Test Item Value Reference Range Interpretation Comments UA Sq Epi (test code = UA Sq Occasional /LPF Epi) [facility] AND [id number] 19:24:00 Test Item Value Reference Range Interpretation Comments UA Bacteria (test code = UA Occasional /HPF Bacteria) [facility] AND [id number] 19:24:00 Test Item Value Reference Range Interpretation Comments UA Mucus (test code = None Seen (08/24/14 UA Mucus) 1:24 PM) [facility] AND [id number] 19:24:00 Test Item Value Reference Range Interpretation Comments UA WBC (test code = UA WBC) 0-2 /HPF [facility] AND [id number] 19:24:00 Test Item Value Reference Range Interpretation Comments UA RBC (test code = 0-2 /HPF See_Comment [Automa gaye message] The UA RBC) system which ge nerated this result tra nsmitted reference range : <=2. The reference range was not used to interpr et this result as satish l/abnormal. [facility] AND [id number] 19:24:00 Test Item Value Reference Range Interpretation Comments UA Leuk Est (test Moderate *ABN*(08/24/14 code = UA Leuk Est) 1:24 PM) [facility] AND [id number] 19:24:00 Test Item Value Reference Range Interpretation Comments UA Nitrite (test code Negative (08/24/14 1:24 = UA Nitrite) PM) [facility] [id number] 19:24:00 Test Item Value Reference Range Interpretation Comments UA Urobilinogen (test code = UA 0.2 0.1-1.0 Urobilinogen) [facility] [id number] 19:24:00 Test Item Value Reference Range Interpretation Comments UA Ketones (test code Negative *NA*(08/24/14 = UA Ketones) 1:24 PM) [facility] [id number] 19:24:00 Test Item Value Reference Range Interpretation Comments UA Blood (test code = Negative (08/24/14 1:24 UA Blood) PM) [facility] [id number] 19:24:00 Test Item Value Reference Range Interpretation Comments UA Bili (test code = Negative *NA*(08/24/14 UA Bili) 1:24 PM) [facility] [id number] 19:24:00 Test Item Value Reference Range Interpretation Comments UA Color (test code = Yellow *NA*(08/24/14 UA Color) 1:24 PM) [facility] [id number] 19:24:00 Test Item Value Reference Range Interpretation Comments UA Glucose (test code Negative (08/24/14 1:24 = UA Glucose) PM) [facility] [id number] 19:24:00 Test Item Value Reference Range Interpretation Comments UA Protein (test code Negative (08/24/14 1:24 = UA Protein) PM) [facility] [id number] 19:24:00 Test Item Value Reference Range Interpretation Comments UA pH (test code = UA pH) 6.0 1 5.0-8.0 [facility] [id number] 19:24:00 Test Item Value Reference Range Interpretation Comments UA Spec Grav (test code *NA*(08/24/14 1:24 PM) = UA Spec Grav) [facility] [id number] 19:24:00 Test Item Value Reference Range Interpretation Comments UA Turbidity (test code = Clear (08/24/14 1:24 UA Turbidity) PM) [facility] [id number] 19:24:00 Test Item Value Reference Range Interpretation Comments Lipase Lvl (test code = Lipase Lvl) 104 73-393 [facility]2015-01-12 19:24:00 Test Item Value Reference Range Interpretation Comments eGFR (test code = eGFR) 109 [facility]2015-01-12 19:24:00 Test Item Value Reference Range Interpretation Comments Bili Total (test code = Bili Total) 0.6 0.2-1.3 [facility]2015-01-12 19:24:00 Test Item Value Reference Range Interpretation Comments Alk Phos (test code = Alk Phos) 72 39-136 [facility]2015-01-12 19:24:00 Test Item Value Reference Range Interpretation Comments Calcium Lvl (test code = Calcium Lvl) 8.8 8.5-10.5 [facility]2015-01-12 19:24:00 Test Item Value Reference Range Interpretation Comments CO2 (test code = CO2) 28 24-32 [facility]2015-01-12 19:24:00 Test Item Value Reference Range Interpretation Comments Chloride Lvl (test code = Chloride Lvl) 107 95-109 [facility]2015-01-12 19:24:00 Test Item Value Reference Range Interpretation Comments Potassium Lvl (test code = Potassium 3.9 3.5-5.1 Lvl) [facility]2015-01-12 19:24:00 Test Item Value Reference Range Interpretation Comments Glucose Lvl (test code = Glucose Lvl) 90 70-99 [facility]2015-01-12 19:24:00 Test Item Value Reference Range Interpretation Comments Sodium Lvl (test code = Sodium Lvl) 138 135-145 [facility]2015-01-12 19:24:00 Test Item Value Reference Range Interpretation Comments BUN (test code = BUN) 7 7-22 [facility]2015-01-12 19:24:00 Test Item Value Reference Range Interpretation Comments Creatinine Lvl (test code = Creatinine 0.7 0.5-1.4 Lvl) [facility]2015-01-12 19:24:00 Test Item Value Reference Range Interpretation Comments ALT (test code = ALT) 23 See_Comment [Auto mated message] The system which ge nerated this result transmit gaye reference range : <=65. The reference range was not used to interpr et this result as satish l/abnormal. [facility]2015-01-12 19:24:00 Test Item Value Reference Range Interpretation Comments AST (test code = AST) 12 See_Comment [Auto mated message] The system which ge nerated this result transmit gaye reference range : <=37. The reference range was not used to interpr et this result as satish l/abnormal. [facility]2015-01-12 19:24:00 Test Item Value Reference Range Interpretation Comments Albumin Lvl (test code = Albumin Lvl) 3.8 3.5-5.0 [facility]2015-01-12 19:24:00 Test Item Value Reference Range Interpretation Comments Total Protein (test code = Total 8.0 6.4-8.4 Protein) [facility]2015-01-12 19:24:00 Test Item Value Reference Range Interpretation Comments A/G Ratio (test code = A/G Ratio) 0.9 0.7-1.6 [facility]2015-01-12 19:24:00 Test Item Value Reference Range Interpretation Comments AGAP (test code = AGAP) 6.9 10.0-20.0 [facility]2015-01-12 19:24:00 Test Item Value Reference Range Interpretation Comments B/C Ratio (test code = B/C Ratio) 10 6-25 [place] [id number] 19:24:00 Test Item Value Reference Range Interpretation Comments Globulin (test code = Globulin) 4.2 2.0-4.0 [id number] 19:24:00 Test Item Value Reference Range Interpretation Comments S Preg (test code = S Negative *NA*(08/24/14 Preg) 1:24 PM) [facility]MyhwwjiAOAKDEQITO8486-90-77 19:24:00 Test Item Value Reference Range Interpretation Comments WBC (test code = WBC) 11.3 3.7-10.4 [facility] HospitalOfpvvkcTSCKJISQJR7639-70-80 19:24:00 Test Item Value Reference Range Interpretation Comments RBC (test code = RBC) 4.75 4.20-5.40 [facility] HospitalCcgeofoORBIDQFSBV1458-63-64 19:24:00 Test Item Value Reference Range Interpretation Comments Platelet (test code = Platelet) 402 922-450 [facility] Hospit[id number] 19:24:00 Test Item Value Reference Range Interpretation Comments MCV (test code = MCV) 89.9 80.0-98.0 [facility] HospitalGsbsplqXFLTYEJOFP5097-85-28 19:24:00 Test Item Value Reference Range Interpretation Comments Hct (test code = Hct) 42.7 36.0-48.0 [facility] HospitalLdezensDKQFRCNIKH4779-35-68 19:24:00 Test Item Value Reference Range Interpretation Comments Hgb (test code = Hgb) 14.5 12.0-16.0 [facility] H[id number] 19:24:00 Test Item Value Reference Range Interpretation Comments RDW (test code = RDW) 13.5 11.5-14.5 [facility] HospitalJlclbuhGRPOSCSWIC7614-68-11 19:24:00 Test Item Value Reference Range Interpretation Comments MCHC (test code = MCHC) 34.0 32.0-36.0 [facility] Hos[id number] 19:24:00 Test Item Value Reference Range Interpretation Comments MCH (test code = MCH) 30.6 pg 27.0-31.0 [facility] HospitalIhochpaLCTGHGPFJS8865-65-83 19:24:00 Test Item Value Reference Range Interpretation Comments MPV (test code = MPV) 8.1 7.4-10.4 [id number] 19:24:00 Test Item Value Reference Range Interpretation Comments Stomatocyte (test code = Stomatocyte) Slight [id number] 19:24:00 Test Item Value Reference Range Interpretation Comments Basophils # (test code 0.1 See_Comment [Aut omated message] The = Basophils #) system which generated this result tra nsmitted reference range : <=0.2. The reference r ozzy was not used to int erpret this result as normal/abnormal . [facility] H[id number] 19:24:00 Test Item Value Reference Range Interpretation Comments Eosinophils # (test code 0.2 See_Comment [A utomated message] The = Eosinophils #) system whic h generated this result tra nsmitted reference range : <=0.5. The reference r ozzy was not used to int erpret this result as normal/abnormal . [facility] H[id number] 19:24:00 Test Item Value Reference Range Interpretation Comments Hypochrom (test code = 1+ (08/24/14 1:24 PM) Hypochrom) [facility] Hospit[id number] 19:24:00 Test Item Value Reference Range Interpretation Comments Lymphocytes # (test code = Lymphocytes 2.8 1.0-5.5 #) [facility] H[id number] 19:24:00 Test Item Value Reference Range Interpretation Comments Segs-Bands # (test code = Segs-Bands #) 8.1 1.5-8.1 [facility] H[id number] 19:24:00 Test Item Value Reference Range Interpretation Comments Monocytes # (test code 0.2 See_Comment [Aut omated message] The = Monocytes #) system which generated this result tra nsmitted reference range : <=0.8. The reference r ozzy was not used to int erpret this result as normal/abnormal . [facility] HospitalIkmqkdtDUARJPVQMC0421-42-15 19:24:00 Test Item Value Reference Range Interpretation Comments Lymphocytes (test code = Lymphocytes) 24.5 20.0-40.0 [facility] Hospit[id number] 19:24:00 Test Item Value Reference Range Interpretation Comments Segs (test code = Segs) 71.8 45.0-75.0 [facility] Hospit[id number] 19:24:00 Test Item Value Reference Range Interpretation Comments Basophils (test code = 0.6 See_Comment [Aut omated message] The Basophils) system which ge nerated this result tra nsmitted reference range : <=1.0. The reference r ozzy was not used to int erpret this result as normal/abnormal . [facility] H[id number] 19:24:00 Test Item Value Reference Range Interpretation Comments Monocytes (test code = Monocytes) 1.5 2.0-12.0 [facility] H[id number] 19:24:00 Test Item Value Reference Range Interpretation Comments Eosinophils (test code = 1.6 See_Comment [A utomated message] The Eosinophils) system which ge nerated this result tra nsmitted reference range : <=4.0. The reference r ozzy was not used to int erpret this result as normal/abnormal . [facility] [id number] 19:24:00 Test Item Value Reference Range Interpretation Comments Plt Morph (test code = Normal (08/24/14 1:24 Plt Morph) PM) [facility] AND [id number] 19:24:00 Test Item Value Reference Range Interpretation Comments UA Sq Epi (test code = UA Sq Occasional /LPF Epi) [facility] AND [id number] 19:24:00 Test Item Value Reference Range Interpretation Comments UA Bacteria (test code = UA Occasional /HPF Bacteria) [facility] AND [id number] 19:24:00 Test Item Value Reference Range Interpretation Comments UA Mucus (test code = None Seen (08/24/14 UA Mucus) 1:24 PM) [facility] AND [id number] 19:24:00 Test Item Value Reference Range Interpretation Comments UA WBC (test code = UA WBC) 0-2 /HPF [facility] AND [id number] 19:24:00 Test Item Value Reference Range Interpretation Comments UA RBC (test code = 0-2 /HPF See_Comment [Automa gaye message] The UA RBC) system which ge nerated this result tra nsmitted reference range : <=2. The reference range was not used to interpr et this result as satish l/abnormal. [facility] AND [id number] 19:24:00 Test Item Value Reference Range Interpretation Comments UA Leuk Est (test Moderate *ABN*(08/24/14 code = UA Leuk Est) 1:24 PM) [facility] AND [id number] 19:24:00 Test Item Value Reference Range Interpretation Comments UA Nitrite (test code Negative (08/24/14 1:24 = UA Nitrite) PM) [facility] AND [id number] 19:24:00 Test Item Value Reference Range Interpretation Comments UA Urobilinogen (test code = UA 0.2 0.1-1.0 Urobilinogen) [facility] AND [id number] 19:24:00 Test Item Value Reference Range Interpretation Comments UA Ketones (test code Negative *NA*(08/24/14 = UA Ketones) 1:24 PM) [facility] AND [id number] 19:24:00 Test Item Value Reference Range Interpretation Comments UA Blood (test code = Negative (08/24/14 1:24 UA Blood) PM) [facility] AND [id number] 19:24:00 Test Item Value Reference Range Interpretation Comments UA Bili (test code = Negative *NA*(08/24/14 UA Bili) 1:24 PM) [facility] AND [id number] 19:24:00 Test Item Value Reference Range Interpretation Comments UA Color (test code = Yellow *NA*(08/24/14 UA Color) 1:24 PM) [facility] AND [id number] 19:24:00 Test Item Value Reference Range Interpretation Comments UA Glucose (test code Negative (08/24/14 1:24 = UA Glucose) PM) [facility] AND [id number] 19:24:00 Test Item Value Reference Range Interpretation Comments UA Protein (test code Negative (08/24/14 1:24 = UA Protein) PM) [facility] AND [id number] 19:24:00 Test Item Value Reference Range Interpretation Comments UA pH (test code = UA pH) 6.0 1 5.0-8.0 [facility] AND [id number] 19:24:00 Test Item Value Reference Range Interpretation Comments UA Spec Grav (test code *NA*(08/24/14 1:24 PM) = UA Spec Grav) [facility] AND [id number] 19:24:00 Test Item Value Reference Range Interpretation Comments UA Turbidity (test code = Clear (08/24/14 1:24 UA Turbidity) PM) [facility] [id number] 19:24:00 Test Item Value Reference Range Interpretation Comments Lipase Lvl (test code = Lipase Lvl) 104 73-393 [facility]2015-01-12 19:24:00 Test Item Value Reference Range Interpretation Comments eGFR (test code = eGFR) 109 [facility]2015-01-12 19:24:00 Test Item Value Reference Range Interpretation Comments Bili Total (test code = Bili Total) 0.6 0.2-1.3 [facility]2015-01-12 19:24:00 Test Item Value Reference Range Interpretation Comments Alk Phos (test code = Alk Phos) 72 39-136 [facility]2015-01-12 19:24:00 Test Item Value Reference Range Interpretation Comments Calcium Lvl (test code = Calcium Lvl) 8.8 8.5-10.5 [facility]2015-01-12 19:24:00 Test Item Value Reference Range Interpretation Comments CO2 (test code = CO2) 28 24-32 [facility]2015-01-12 19:24:00 Test Item Value Reference Range Interpretation Comments Chloride Lvl (test code = Chloride Lvl) 107 95-109 [facility]2015-01-12 19:24:00 Test Item Value Reference Range Interpretation Comments Potassium Lvl (test code = Potassium 3.9 3.5-5.1 Lvl) [facility]2015-01-12 19:24:00 Test Item Value Reference Range Interpretation Comments Glucose Lvl (test code = Glucose Lvl) 90 70-99 [facility]2015-01-12 19:24:00 Test Item Value Reference Range Interpretation Comments Sodium Lvl (test code = Sodium Lvl) 138 135-145 [facility]2015-01-12 19:24:00 Test Item Value Reference Range Interpretation Comments BUN (test code = BUN) 7 7-22 [facility]2015-01-12 19:24:00 Test Item Value Reference Range Interpretation Comments Creatinine Lvl (test code = Creatinine 0.7 0.5-1.4 Lvl) [facility]2015-01-12 19:24:00 Test Item Value Reference Range Interpretation Comments ALT (test code = ALT) 23 See_Comment [Auto mated message] The system which ge nerated this result transmit gaye reference range : <=65. The reference range was not used to interpr et this result as satish l/abnormal. [facility]2015-01-12 19:24:00 Test Item Value Reference Range Interpretation Comments AST (test code = AST) 12 See_Comment [Auto mated message] The system which ge nerated this result transmit gaye reference range : <=37. The reference range was not used to interpr et this result as satish l/abnormal. [facility]2015-01-12 19:24:00 Test Item Value Reference Range Interpretation Comments Albumin Lvl (test code = Albumin Lvl) 3.8 3.5-5.0 [facility]2015-01-12 19:24:00 Test Item Value Reference Range Interpretation Comments Total Protein (test code = Total 8.0 6.4-8.4 Protein) [facility]2015-01-12 19:24:00 Test Item Value Reference Range Interpretation Comments A/G Ratio (test code = A/G Ratio) 0.9 0.7-1.6 [facility]2015-01-12 19:24:00 Test Item Value Reference Range Interpretation Comments AGAP (test code = AGAP) 6.9 10.0-20.0 [facility]2015-01-12 19:24:00 Test Item Value Reference Range Interpretation Comments B/C Ratio (test code = B/C Ratio) 10 6-25 [facility]2015-01-12 19:24:00 Test Item Value Reference Range Interpretation Comments Globulin (test code = Globulin) 4.2 2.0-4.0 [id number] 19:24:00 Test Item Value Reference Range Interpretation Comments S Preg (test code = S Negative *NA*(08/24/14 Preg) 1:24 PM) [id number] 19:24:00 Test Item Value Reference Range Interpretation Comments WBC (test code = WBC) 11.3 3.7-10.4 [facility] Hos[id number] 19:24:00 Test Item Value Reference Range Interpretation Comments RBC (test code = RBC) 4.75 4.20-5.40 [facility] Hos[id number] 19:24:00 Test Item Value Reference Range Interpretation Comments Platelet (test code = Platelet) 402 133-450 [facility] HospitalEkzgetnGFLWXFVJXE5751-85-02 19:24:00 Test Item Value Reference Range Interpretation Comments MCV (test code = MCV) 89.9 80.0-98.0 [facility] HospitalMohxwzfBVUEJOWCOH6027-16-96 19:24:00 Test Item Value Reference Range Interpretation Comments Hct (test code = Hct) 42.7 36.0-48.0 [facility] HospitalDzfvturPKYCCJIEKI9466-03-10 19:24:00 Test Item Value Reference Range Interpretation Comments Hgb (test code = Hgb) 14.5 12.0-16.0 [facility] Hospit[id number] 19:24:00 Test Item Value Reference Range Interpretation Comments RDW (test code = RDW) 13.5 11.5-14.5 [facility] Ho[id number] 19:24:00 Test Item Value Reference Range Interpretation Comments MCHC (test code = MCHC) 34.0 32.0-36.0 [facility] Hospit[id number] 19:24:00 Test Item Value Reference Range Interpretation Comments MCH (test code = MCH) 30.6 pg 27.0-31.0 [facility] Hos[id number] 19:24:00 Test Item Value Reference Range Interpretation Comments MPV (test code = MPV) 8.1 7.4-10.4 [facility] HospitalEzyhdqgANTHAXWMTQ9492-17-16 19:24:00 Test Item Value Reference Range Interpretation Comments Stomatocyte (test code = Stomatocyte) Slight [facility] Hos[id number] 19:24:00 Test Item Value Reference Range Interpretation Comments Basophils # (test code 0.1 See_Comment [Aut omated message] The = Basophils #) system which generated this result tra nsmitted reference range : <=0.2. The reference r ozzy was not used to int erpret this result as normal/abnormal . [facility] Ho[id number] 19:24:00 Test Item Value Reference Range Interpretation Comments Eosinophils # (test code 0.2 See_Comment [A utomated message] The = Eosinophils #) system whic h generated this result tra nsmitted reference range : <=0.5. The reference r ozzy was not used to int erpret this result as normal/abnormal . [facility] H[id number] 19:24:00 Test Item Value Reference Range Interpretation Comments Hypochrom (test code = 1+ (08/24/14 1:24 PM) Hypochrom) [facility] H[id number] 19:24:00 Test Item Value Reference Range Interpretation Comments Lymphocytes # (test code = Lymphocytes 2.8 1.0-5.5 #) [facility] H[id number] 19:24:00 Test Item Value Reference Range Interpretation Comments Segs-Bands # (test code = Segs-Bands #) 8.1 1.5-8.1 [facility] H[id number] 19:24:00 Test Item Value Reference Range Interpretation Comments Monocytes # (test code 0.2 See_Comment [Aut omated message] The = Monocytes #) system which generated this result tra nsmitted reference range : <=0.8. The reference r ozzy was not used to int erpret this result as normal/abnormal . [facility] Hosp[id number] 19:24:00 Test Item Value Reference Range Interpretation Comments Lymphocytes (test code = Lymphocytes) 24.5 20.0-40.0 [facility] HospitalItacddmVALHSBOCRZ9436-74-57 19:24:00 Test Item Value Reference Range Interpretation Comments Segs (test code = Segs) 71.8 45.0-75.0 [facility] HospitalNkuoozlHXDBJXUOKR4970-04-35 19:24:00 Test Item Value Reference Range Interpretation Comments Basophils (test code = 0.6 See_Comment [Aut omated message] The Basophils) system which ge nerated this result tra nsmitted reference range : <=1.0. The reference r ozzy was not used to int erpret this result as normal/abnormal . [facility] H[id number] 19:24:00 Test Item Value Reference Range Interpretation Comments Monocytes (test code = Monocytes) 1.5 2.0-12.0 [facility] HospitalFlvcajiHAERJMVSSW7573-14-99 19:24:00 Test Item Value Reference Range Interpretation Comments Eosinophils (test code = 1.6 See_Comment [A utomated message] The Eosinophils) system which ge nerated this result tra nsmitted reference range : <=4.0. The reference r ozzy was not used to int erpret this result as normal/abnormal . [facility] Ho[id number] 19:24:00 Test Item Value Reference Range Interpretation Comments Plt Morph (test code = Normal (08/24/14 1:24 Plt Morph) PM) [facility]2015-01-12 19:24:00 Test Item Value Reference Range Interpretation Comments UA Sq Epi (test code = UA Sq Occasional /LPF Epi) [facility] AND [id number] 19:24:00 Test Item Value Reference Range Interpretation Comments UA Bacteria (test code = UA Occasional /HPF Bacteria) [facility] AND [id number] 19:24:00 Test Item Value Reference Range Interpretation Comments UA Mucus (test code = None Seen (08/24/14 UA Mucus) 1:24 PM) [facility] AND [id number] 19:24:00 Test Item Value Reference Range Interpretation Comments UA WBC (test code = UA WBC) 0-2 /HPF [facility] AND [id number] 19:24:00 Test Item Value Reference Range Interpretation Comments UA RBC (test code = 0-2 /HPF See_Comment [Automa gaye message] The UA RBC) system which ge nerated this result tra nsmitted reference range : <=2. The reference range was not used to interpr et this result as satish l/abnormal. [facility] AND [id number] 19:24:00 Test Item Value Reference Range Interpretation Comments UA Leuk Est (test Moderate *ABN*(08/24/14 code = UA Leuk Est) 1:24 PM) [facility] AND [id number] 19:24:00 Test Item Value Reference Range Interpretation Comments UA Nitrite (test code Negative (08/24/14 1:24 = UA Nitrite) PM) [facility] AND [id number] 19:24:00 Test Item Value Reference Range Interpretation Comments UA Urobilinogen (test code = UA 0.2 0.1-1.0 Urobilinogen) [facility] AND [id number] 19:24:00 Test Item Value Reference Range Interpretation Comments UA Ketones (test code Negative *NA*(08/24/14 = UA Ketones) 1:24 PM) [facility] AND [id number] 19:24:00 Test Item Value Reference Range Interpretation Comments UA Blood (test code = Negative (08/24/14 1:24 UA Blood) PM) [facility] AND [id number] 19:24:00 Test Item Value Reference Range Interpretation Comments UA Bili (test code = Negative *NA*(08/24/14 UA Bili) 1:24 PM) [facility] AND [id number] 19:24:00 Test Item Value Reference Range Interpretation Comments UA Color (test code = Yellow *NA*(08/24/14 UA Color) 1:24 PM) [facility] AND [id number] 19:24:00 Test Item Value Reference Range Interpretation Comments UA Glucose (test code Negative (08/24/14 1:24 = UA Glucose) PM) [facility] AND [id number] 19:24:00 Test Item Value Reference Range Interpretation Comments UA Protein (test code Negative (08/24/14 1:24 = UA Protein) PM) [facility] AND [id number] 19:24:00 Test Item Value Reference Range Interpretation Comments UA pH (test code = UA pH) 6.0 1 5.0-8.0 [facility] AND [id number] 19:24:00 Test Item Value Reference Range Interpretation Comments UA Spec Grav (test code *NA*(08/24/14 1:24 PM) = UA Spec Grav) [facility] AND [id number] 19:24:00 Test Item Value Reference Range Interpretation Comments UA Turbidity (test code = Clear (08/24/14 1:24 UA Turbidity) PM) [facility]
[2022-09-16] MEDS ORDERED: HYDROCODONE/APAP 7.5/325 MG TAB ONE (21:22)
--- NOTE | 2022-09-16 21:59 | RAD REPORT ---
EXAM DESCRIPTION: RAD - Ankle Right 3 View - 09/16/2022 9:22 pm CLINICAL HISTORY: Right ankle pain FINDINGS: No fracture or dislocation is seen.
--- NOTE | 2022-09-16 22:01 | RAD REPORT ---
EXAM DESCRIPTION: RAD - Foot Right 3 View - 09/16/2022 9:22 pm CLINICAL HISTORY: Right foot pain status post injury FINDINGS: No fracture or dislocation is seen
--- NOTE | 2022-09-16 22:17 | ER ---
Nurse's Notes [facility] Name: Shanna Nur Age: 46 yrs Sex: Female : 1975 Arrival Date: 09/16/2022 Time: 20:36 Bed 2 Private MD: Diagnosis: Sprain of ankle-right;Sprain of foot-right Presentation: 09/16 20:45 Chief complaint: Patient states: right foot pain of 10 and right ankle pain,onset 3 pf1 days. Patient stated stepped off a curb and landed wrong onto the ball of right foot then started having shooting pain. Patient denies fall or any head injury. Coronavirus screen: Vaccine status: Patient reports being unvaccinated. Client denies travel out of the [place] in the last 14 days. At this time, the client does not indicate any symptoms associated with coronavirus-19. Ebola Screen: Patient negative for fever greater than or equal to 101.5 degrees Fahrenheit, and additional compatible Ebola Virus Disease symptoms. Initial Sepsis Screen: Does the patient meet any 2 criteria? No. Patient's initial sepsis screen is negative. Does the patient have a suspected source of infection? No. Patient's initial sepsis screen is negative. Risk Assessment: Do you want to hurt yourself or someone else? Patient reports no desire to harm self or others. Onset of symptoms was September 13, 2022. 20:45 Method Of Arrival: Ambulatory pf1 20:45 Acuity: JESUS 3 pf1 Historical: - Allergies: 20:48 Iodine (Anaphylaxis); pf1 20:48 Latex, Natural Rubber; pf1 20:48 Phenergan; pf1 20:48 SEAFOOD; pf1 20:48 tramadol; pf1 20:48 Ultram; pf1 20:48 Vancomycin; pf1 20:48 Ibuprofen; pf1 - Home Meds: 20:50 metoprolol tartrate 50 mg Oral tab 1 tab [Active]; lisinopril 20 mg Oral tab once daily pf1 [Active]; Keppra 1,000 mg oral tab 1 tab every 12 hours [Active]; Venpat 200mg twice a day [Active]; - PMHx: 20:50 TBI; Seizure; Atrial fibrillation; pf1 - PSHx: 20:50 Appendectomy; Cholecystectomy; Tonsillectomy; tubal ligation; pf1 - Immunization history:: Client reports having NOT received the Covid vaccine. Last tetanus immunization: < 5 years ago Flu vaccine is not up to date. - Social history:: Smoking status: Patient denies any tobacco usage or history of. Patient uses alcohol, occasionally. Patient/guardian denies using street drugs. Screenin:31 [facility] ED Fall Risk Assessment (Adult) History of falling in the last 3 months, as6 including since admission Yes- single mechanical fall (1 pt) Score/Fall Risk Level 0 - 2 = Low Risk. Abuse screen: Denies threats or abuse. Denies injuries from another. Nutritional screening: No deficits noted. Tuberculosis screening: No symptoms or risk factors identified. Assessment: 21:29 General: Appears uncomfortable, Behavior is calm, cooperative. Pain: Complains of pain as6 in right foot Pain radiates to right leg Quality of pain is described as sharp, shooting. Neuro: Level of Consciousness is awake, alert, obeys commands, Oriented to person, place, time, situation. Cardiovascular: Capillary refill < 3 seconds Patient's skin is warm and dry. Respiratory: Respiratory effort is even, unlabored, Respiratory pattern is regular, symmetrical. Musculoskeletal: Range of motion: limited in right ankle Swelling present in right ankle, right Achilles and anterior aspect of right ankle Reports pain in right foot and right leg. Vital Signs: 20:45 BP 157 / 80; Pulse 98; Resp 20; Temp 98.6; Pulse Ox 97% on R/A; Weight 68.04 kg; Height pf1 5 ft. 3 in. (160.02 cm); Pain 10/10; 21:31 BP 104 / 85; Pulse 103; Resp 18 S; Pulse Ox 94% on R/A; as6 22:45 BP 118 / 78; Pulse 92; Resp 17; Temp 98.6; Pulse Ox 100% on R/A; Pain 0/10; ke1 20:45 Body Mass Index 26.57 (68.04 kg, 160.02 cm) pf1 ED Course: 20:36 Patient arrived in ED. jj6 20:48 Triage completed. pf1 20:49 Tee Bill PA is PHCP. cp 20:49 Cindy Mosley MD is Attending Physician. cp 21:16 Todd Abebe, RN is Primary Nurse. as6 21:23 XRAY Foot RIGHT 3 View In Process Unspecified. EDMS 21:23 XRAY Ankle RIGHT 3 view In Process Unspecified. EDMS 21:28 Arm band placed on. as6 21:31 Bed in low position. Call light in reach. Side rails up X 1. Pulse ox on. NIBP on. Warm as6 blanket given. 22:16 Glenn Meredith MD is Referral Physician. cp 22:45 No provider procedures requiring assistance completed. Patient did not have IV access ke1 during this emergency room visit. Administered Medications: 21:20 Drug: Hydrocodone-Acetaminophen (7.5 mg-325 mg) 1 tabs Route: PO; as6 22:45 Follow up: Response: Pain is decreased ke1 Medication: 22:46 VIS not applicable for this client. ke1 Outcome: 22:17 Discharge ordered by . cp 22:46 Condition: good ke1 22:46 Discharge instructions given to patient. 22:46 Discharged to home with crutches. ke1 22:46 Patient left the ED. ke1 Signatures: Dispatcher [employer] EDMS Tee Bill PA PA cp Inez Almonte jj6 Todd Abebe RN RN as6 Chito Reyes RN RN ke1 Guera capellan RN RN pf1 Corrections: (The following items were deleted from the chart) 20:52 20:48 PMHx: Hypertensive disorder; pf1 pf1
--- NOTE | 2022-09-16 22:17 | EDPHYS ---
Physician Documentation [facility] Name: Shanna Nur Age: 46 yrs Sex: Female : 1975 Arrival Date: 09/16/2022 Time: 20:36 Bed 2 Private MD: ED Physician Cindy Mosley HPI: 09/16 21:20 This 46 yrs old Female presents to ER via Ambulatory with complaints of Foot Injury. cp 21:20 The patient presents with an injury, pain, that is acute. The complaints affect the cp right ankle and right foot. 21:20 Context: resulted from a mis-step, on a curb, the patient can fully bear weight, the cp patient is able to ambulate, with moderate difficulty. Onset: The symptoms/episode began/occurred 3 day(s) ago. 21:20 Associated signs and symptoms: Pertinent negatives calf tenderness, fever, numbness. cp Treatment prior to arrival includes: no previous treatment. Historical: - Allergies: 20:48 Iodine (Anaphylaxis); pf1 20:48 Latex, Natural Rubber; pf1 20:48 Phenergan; pf1 20:48 SEAFOOD; pf1 20:48 tramadol; pf1 20:48 Ultram; pf1 20:48 Vancomycin; pf1 20:48 Ibuprofen; pf1 - Home Meds: 20:50 metoprolol tartrate 50 mg Oral tab 1 tab [Active]; lisinopril 20 mg Oral tab once daily pf1 [Active]; Keppra 1,000 mg oral tab 1 tab every 12 hours [Active]; Venpat 200mg twice a day [Active]; - PMHx: 20:50 TBI; Seizure; Atrial fibrillation; pf1 - PSHx: 20:50 Appendectomy; Cholecystectomy; Tonsillectomy; tubal ligation; pf1 - Immunization history:: Client reports having NOT received the Covid vaccine. Last tetanus immunization: < 5 years ago Flu vaccine is not up to date. - Social history:: Smoking status: Patient denies any tobacco usage or history of. Patient uses alcohol, occasionally. Patient/guardian denies using street drugs. ROS: 21:25 Constitutional: Negative for body aches, chills, fever, poor PO intake. cp 21:25 Eyes: Negative for injury, pain, redness, and discharge. cp 21:25 ENT: Negative for drainage from ear(s), ear pain, sore throat, difficulty swallowing, difficulty handling secretions. 21:25 Neck: Negative for pain with movement, pain at rest, stiffness. 21:25 Cardiovascular: Negative for chest pain. 21:25 Respiratory: Negative for cough, shortness of breath, wheezing. 21:25 Abdomen/GI: Negative for abdominal pain, nausea, vomiting, and diarrhea. 21:25 Back: Negative for pain at rest, pain with movement. 21:25 MS/extremity: Positive for pain, swelling, tenderness, of the right ankle and right foot. 21:25 Neuro: Negative for altered mental status, headache, weakness. 21:25 All other systems are negative. Exam: 21:30 Constitutional: The patient appears in no acute distress, alert, awake, non-toxic, well cp developed, well nourished. 21:30 Head/Face: Normocephalic, atraumatic. cp 21:30 Chest/axilla: Inspection: normal. 21:30 Cardiovascular: Rate: normal, Rhythm: regular. 21:30 Respiratory: the patient does not display signs of respiratory distress, Respirations: normal, no use of accessory muscles, no retractions, labored breathing, is not present. 21:30 Back: pain, is absent, ROM is normal. 21:30 Musculoskeletal/extremity: Extremities: grossly normal except: noted in the right foot and right ankle: pain, swelling, tenderness, There is no evidence of decreased ROM, Pulses: noted to be 2+ in the right dorsalis pedis artery, the right foot Sensation intact. Achilles tendon palpated and intact, no proximal right fibula tenderness to palpation. Vital Signs: 20:45 BP 157 / 80; Pulse 98; Resp 20; Temp 98.6; Pulse Ox 97% on R/A; Weight 68.04 kg; Height pf1 5 ft. 3 in. (160.02 cm); Pain 10/10; 21:31 BP 104 / 85; Pulse 103; Resp 18 S; Pulse Ox 94% on R/A; as6 22:45 BP 118 / 78; Pulse 92; Resp 17; Temp 98.6; Pulse Ox 100% on R/A; Pain 0/10; ke1 20:45 Body Mass Index 26.57 (68.04 kg, 160.02 cm) pf1 Procedures: 22:25 Splinting: Splint applied to right ankle using walking boot. applied by nurse. Patient cp tolerated well. MDM: 20:49 Patient medically screened. cp 22:00 Independent interpretation of the following test(s) in the Emergency Department X-Ray: cp My interpretation is xrays of right ankle negative for fracture and xrays of right foot negative for fracture. 22:16 Data reviewed: vital signs, nurses notes, radiologic studies, plain films. cp 09/16 21:10 Order name: XRAY Foot RIGHT 3 View; Complete Time: 22:15 cp 09/16 22:16 Interpretation: Report reviewed. cp 09/16 21:10 Order name: XRAY Ankle RIGHT 3 view; Complete Time: 22:15 cp 09/16 22:15 Interpretation: Report reviewed. cp 09/16 22:23 Order name: Walking boot; Complete Time: 22:45 cp 09/16 22:23 Order name: Crutches; Complete Time: 22:45 cp Administered Medications: 21:20 Drug: Hydrocodone-Acetaminophen (7.5 mg-325 mg) 1 tabs Route: PO; as6 22:45 Follow up: Response: Pain is decreased ke1 Disposition: 09/17 06:47 I reviewed the patient's care provided by the Advanced Practice Provider and agree with sd2 the diagnosis and treatment plan. Disposition Summary: 09/16/22 22:17 Discharge Ordered Location: Home cp Problem: new cp Symptoms: have improved cp Condition: Stable cp Diagnosis - Sprain of ankle - right cp - Sprain of foot - right cp Followup: cp - With: Glenn Meredith MD - When: 5 - 6 days - Reason: pain continues Discharge Instructions: - Discharge Summary Sheet cp - Ankle Sprain cp - Foot Sprain cp - RICE Therapy for Routine Care of Injuries cp Forms: - Medication Reconciliation Form cp - Work release form cp - Thank You Letter cp - Antibiotic Education cp - Prescription Opioid Use cp Signatures: Dispatcher [employer] EDMS Tee Bill PA PA cp Todd Abebe RN RN as6 Cindy Mosley MD MD sd2 Guera capellan RN RN pf1 Chito Reyes RN ke1 Corrections: (The following items were deleted from the chart) 09/16 20:52 20:48 PMHx: Hypertensive disorder; pf1 pf1 09/17 22:21 22:10 Splinting: Splint applied to right ankle cp cp
[2022-09-16 23:19] VITALS: TEMP 98.6
[2022-09-16 23:21] VITALS: BP 118/78; O2SAT 100
== END 2022-09-16 22:46 | disposition home or self-care (01) ==
LOC: ER 20:33
DX: S93.601A Unspecified sprain of right foot, initial encounter (principal); S93.401A Sprain of unspecified ligament of right ankle, initial encounter
CPT/HCPCS: 99283

== ENCOUNTER 2022-09-17 18:28 | Emergency (ER) | payer OTHER ==
--- OUTSIDE RECORDS SUMMARY | 2022-09-17 19:05 | XMS REPORT | Continuity of Care Document ---
:1975 Author Organization [facility] t Address [address] [place] [address] Care Team Providers Name Role Phone Pcp, Patient Does Not Have A Primary Care Physician [phone] LEANDRO OLIVARES Attending Clinician Unavailable Halima Vargas MD Attending Clinician HALIMA VARGAS Attending Clinician Unavailable Karissa Attending Clinician Unavailable Haroon Ramirez MD Attending Clinician Joe Boles DO Attending Clinician TEJAL RIZZO Attending Clinician Unavailable Florence HUNTLEY, [place] Attending Clinician Unavailable Starr Vinson RN Attending Clinician Unavailable LEANDRO OLIVARES M.D. Attending Clinician Unavailable VIRAL COFFEY Attending Clinician Unavailable Felicia Frost MD Attending Clinician LUCY NASCIMENTO M.D. Attending Clinician Unavailable Bladimir Brumfield MD Attending Clinician [phone] Obdulio Ragland MD Attending Clinician MD OBDULIO RAGLAND Attending Clinician Unavailable Inez García MD Attending Clinician [phone] JUDE MATHEWS M.D. Attending Clinician Unavailable Woo Greenberg DO Attending Clinician [phone] [place] Hill MD Attending Clinician Clarice Brannon MD Attending Clinician Lj Thakkar Attending Clinician MD LJ THAKKAR Attending Clinician Unavailable Jose Elias Torres MD Attending Clinician Lydia Oden MD Attending Clinician [phone] Maribel Dickey MD Attending Clinician MD [...] Fishman Attending Clinician Nay Carlson Attending Clinician Jesi_C Admitting Clinician Unavailable OBDULIO RAGLAND Admitting Clinician Unavailable MD OBDULIO RAGLAND Admitting Clinician Unavailable CLARICE BRANNON Admitting Clinician Unavailable MD CLARICE BRANNON Admitting Clinician Unavailable LYDIA ODEN Admitting Clinician Unavailable MD LYDIA ODEN Admitting Clinician Unavailable MARCIA WYNNE Admitting Clinician Unavailable BLAZE SQUIRES Admitting Clinician Unavailable MD BLAZE SQUIRES Admitting Clinician Unavailable ORESTES DUONG Admitting Clinician Unavailable Payers Payer Name Policy Type Policy Number Effective Date Expiration Date Brannon richards [facility] COMM[facility] PL[facility] [id number] 2020 STAR 00:00:00 CDC REVIEW [id number] 2020 00:00:00 Problems Condition Condition Condition Status [...] BLEEDING BLEEDING 7 09:01:00 l Active 23:00: [place] 02/12/2016 [facility] D25.9 - D25.9 - Diagnosis Active 2014-082015-06-08 Memoria "LEIOMYOMA "LEIOMYOMA 15:22:00 l OF UTERUS, OF UTERUS, 00:01: He rmann UNSPECIFI" UNSPECIFI" 00 Active 06/08/2015 OPIBritany [place] VAGINAL VAGINAL Diagnosis Active 2014-12-21 Memoria BLEEDING- BLEEDING- 09-03 13:01:00 l 6 WKS PG 6 WKS PG 00:00: Jordy n Active 00 09/03/2014 [facility] CONSTIPATI CONSTIPAT Diagnosis Active 2014-12-14 Memoria ON, NAUSEA ION, - 09:23:00 l NAUSEA 00:00: [place] Active 00 08/24/2014 [facility] No known No known Disease Unive rs active active ity of problems problems [facility] Anemia Anemia Problem Resolve 2016-02-16 Mem oria (disorder) (disorder) d 00:25:42 l Resolved [place] Problem 02/16/2016 [facility] Migraine Migraine Problem Resolve 2016-02-16 Memoria (disorder) (disorder) d 00:25:42 l Resolved [place] Problem 02/16/2016 [facility] Mitral Mitral Problem Resolve 2016-02-16 Mem oria valve valve d 00:25:42 l prolapse prolapse Jordy n (disorder) (disorder) Resolved Problem 02/16/2016 [facility] Anxiety Anxiety Problem Active 2016-02-16 Me moria (finding) (finding) 00:25:42 l Active [place] Problem 02/16/2016 [facility] Bipolar Bipolar Problem Active 2016-02-16 Me moria (qualifier (qualifier 00:25:42 l value) value) [place] Active Problem 02/16/2016 [facility] Congestive Congestiv Problem Active 2016-02-16 Memoria heart e heart 00:25:42 l failure failure [place] (disorder) (disorder) Active Problem 02/16/2016 [facility] Depressive Depressiv Problem Active 2016-02-16 Memoria disorder e disorder 00:25:42 l (disorder) (disorder) He rmann Active Problem 02/16/2016 [facility] Gastroesop Gastroeso Problem Active 2016-02-16 Memoria hageal phageal 00:25:42 l reflux reflux Antonio disease disease (disorder) (disorder) Active Problem 02/16/2016 [facility] Heart Heart Problem Active 2016-02-16 Memor ia failure failure 00:25:42 l (disorder) (disorder) He rmann Active Problem 02/16/2016 [facility] Hypertensi Hypertens Problem Active 2016-02-16 Memoria ve kellee 00:25:42 l disorder, disorder, Herm alem systemic systemic arterial arterial (disorder) (disorder) Active Problem 02/16/2016 [facility] Multiple Multiple Problem Active 2016-02-16 Memoria sclerosis sclerosis 00:25:42 l (disorder) (disorder) He rmann Active Problem 02/16/2016 [facility] Osteoarthr Osteoarth Problem Active 2016-02-16 Memoria itis ritis 00:25:42 l (disorder) (disorder) He rmann Active Problem 02/16/2016 [facility] Drug Drug Problem Active 2016-02-16 Memor ia overdose overdose 00:25:42 l (disorder) (disorder) He rmann Active Problem 02/16/2016 [facility] Rheumatoid Rheumatoi Problem Active 2016-02-16 Memoria arthritis d 00:25:42 l (disorder) arthritis Her sarkar (disorder) Active Problem 02/16/2016 [facility] 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 00:25:42 l (disorder) (disorder) He rmann Active Problem 02/16/2016 [facility] Uterine Uterine Problem Active 2016-02-16 Me moria leiomyoma leiomyoma 00:25:42 l (disorder) (disorder) He rmann Active Problem 02/16/2016 [facility] Urinary Urinary Problem Active 2016-02-16 Me moria tract tract 00:25:42 l infectious infectious He rmann disease disease (disorder) (disorder) Active Problem 02/16/2016 [facility] 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 [...] breath) an s on on exertion exertion History of Past Illness Condition Condition Condition Status Onset Resolution Last Treating Co mments Source Name Details Category Date Date Treatment Clinician Date Discharge Problem 2016-02-16 2016-02-16 Memoria Diagnosis: Discharge 02-12 00:25:42 00:25:42 l Anemia, Diagnosis: 05:00: Kristina nn unspecifie Anemia, 00 d unspecifie d 02/13/2016 02/16/2016 [facility] Discharge Discharge Problem 2016-02-16 2016-02-16 Memoria Diagnosis: Diagnosis: 02-12 00:25:42 00:25:42 l Abnormal Abnormal 05:00: Jordy n uterine uterine 00 and and vaginal vaginal bleeding, bleeding, unspecifie unspecifie d d 02/13/2016 6 [facility] Discharge Discharge Problem 2014-09-06 2014-09-06 Memoria Diagnosis: Diagnosis: 09-04 16:01:45 16:01:45 l Vaginal Vaginal 06:00: Antonio bleeding bleeding 09/04/2014 09/06/2014 [facility] Discharge Discharge Problem 2014-09-06 2014-09-06 Memoria Diagnosis: Diagnosis: 09-04 16:01:45 16:01:45 l Dysmenorrh Dysmenorrh 06:00: He rmann ea ea 09/04/2014 09/06/2014 [facility] Discharge Discharge Problem 2014-08-26 2014-08-26 Memoria Diagnosis: Diagnosis: 08-24 17:22:44 17:22:44 l Nausea Nausea 06:00: Antonio 08/24/201408/26/2014 [facility] Discharge Discharge Problem 2014-08-26 2014-08-26 Memoria Diagnosis: Diagnosis: 08-24 17:22:44 17:22:44 l Constipati Constipati 06:00: He rmann on on 08/24/2014 08/26/2014 [facility] Allergies, Adverse Reactions, Alerts Allergy Allergy Status Severity Reaction(s) Onset Inactive Treating Comm ents Source Name Type Date Date Clinician Iodine Propensi Active Hives 2023-0 Univers ty to 08-14 ity of adverse 00:00: [place] reaction 00 Medical s Branch Latex Propensi Active Rash 2023-0 Univers ty to 08-14 ity of adverse 00:00: [place] reaction 00 Medical s Branch Levoflox Propensi Active Swelling 3-0 Univ ers acin ty to 08-14 ity [...] Povidone Allergy Active 2020-0 [facility] Iodine to 13 Health substanc 00:00: e 00 Latex Allergy Active 2020-0 UT to -13 Health substanc 00:00: e 00 Nsaids Propensi Active 2020-0 UT ty to 04-25 Health adverse 00:00: reaction 00 s Citalopr Propensi Active Itching 2020-0 Burning Meth ketty am ty to 2-[address] adverse 00:00: Hospita reaction 00 l s to drug Citalopr Propensi Active Itching 2020-0 Burning [facility] am ty to 2-04 skinBurni [...] 00 Center Ketorola Propensi Active Other (See migraines Methodi [...] 00 Center s Vancomyc Propensi Active Hives 2016-0 Method i in ty to 09-25 st Analogue adverse 00:00: Hospita s reaction 00 l s to drug TRAMADOL Allergy Active 2016-0 [facility] 09-25 00:00: 00 VANCOMYC Allergy Active 2016-0 [facility] IN 09-25 ANALOGUE 00:00: S 00 Povidone Propensi Active 2013-[address] [facility] [...] Active Memori a d d 8-09 l radioSignStorey radiocon 00:00: Jordy roberto trast trast 00 dyes dyes Levaquin Levaquin Active Memori a 8-09 l 00:00: [place] 00 Phenerga Phenerga Active Memori a n n 8-09 l 00:00: [place] 00 Betadine Allergy Active [facility] SOLN to [...] Food Food Active Memoria Seafood Seafood l [place] Latex Latex Active Memoria l [place] morphine morphine Active Memori a l [place] vancomyc vancomyc Active Memori a in in l [place] Elavil Elavil Active Memoria l [place] STEROIDS Allergy Active [facility] Family History Family Member Diagnosis Comments Start Date Stop Date Source Family member [facility] Maternal [facility] Maternal aunt [facility] Maternal grandfather Stroke [facility] Natural mother Diabetes [facility] Natural sister Stroke [facility] Maternal uncle [facility] Social History Social Habit Start Date Stop Date Quantity Comments Source History SDOH [facility]-Ism Alcohol Frequency Hospita l History SDOH [facility] Alcohol Std Hospital Drinks History SDOH [facility] Alcohol Binge Hospital Exposure to 2022-08-04 2022-08-14 Not sure [facility] SARS-CoV-2 00:00:00 20:42:00 [facility] (event) Branch Alcohol intake 2021-06-29 2021-06-29 Current non-drinker M ethodist 00:00:00 00:00:00 of [facility] (finding) Alcohol Comment 2018-08-02 2018-08-[address] 00:00:00 00:00:00 Hospital Tobacco use and 2014-05-15 2014-05-[address] [facility] exposure 00:00:00 00:00:00 [facility] Sex Assigned At [address] [facility] 00:00:00 [facility]00 [facility] Smoking Status Start Date Stop Date Source Tobacco smoking consumption [facility] Branch Social History [facility] Medications Ordered Filled Start Stop Current Ordering Indication Dosage Frequency Signature Comments Components Source Medication Medication Date Date Medication? Clinician (SIG) Name Name ketorolac 2022- Yes 30mg 30 mg, Unive rs (TORADOL) 08-15 Slow IV ity of injection 05:30: 17:29 [place], [place] 30 mg 00 :00 ONCE, 1 Medical [...] dose, On Sun08/14/22 at 2200, STAT levETIRAcet No 1000mg 1,000 mg, Univers am (KEPPRA) 08-15 01-03 IV ity of in NACL 03:00: 04:33 Piggyback, Donal as (ISO-OS) 00 :00 ONCE, 1 Medical 1,000 dose, On Branch mg/100 mL Sun08/14/22 RTU at 2100, Administer over 15 Minutes, 100 mL Lacosamide Yes [id number] 200mg Take 1 Univers (VIMPAT) - tablet by ity of 200 mg 00:00: mouth in [place] tablet the morning and 1 tablet in the evening. ALPRAZolam Yes [id number] .25mg Take 1 Univers (XANAX) - tablet by ity of 0.25 mg 00:00: mouth in [place] tablet 00 the morning and 1 tablet at noon and 1 tablet in the evening. levETIRAcet Yes [id number] 1000mg Take 1 Univers am (KEPPRA) - tablet by ity of 1,000 mg 00:00: mouth in [place] tablet the and 1 tablet in the evening. acetaminoph 2020-08 [place] [id number] 1{tbl} Q6H Take 1 Methodi en-codeine 08-[address] (TYLENOL 00:00: 05:59 mouth Hospita WITH 00 :00 every 6 l CODEINE #3) (six) 300-30 mg hours as per tablet needed for moderate pain for up to 5 days .acute pain. acetaminoph 2020-08 [place] [id number] 1{tbl} Q6H Take 1 Methodi en-codeine 08-[address] (TYLENOL 00:00: 05:59 mouth Hospita WITH 00 :00 every 6 l CODEINE #3) (six) 300-30 mg hours as per tablet needed for moderate pain for up to 5 days .acute pain. No known No No known UT medications 9-13 medication He alth 12:13: s 10 No known No No known UT medications 04-25 medication He alth 12:13: s 10 bumetanide Yes [id number] 2mg QD Take 1 U T (Bumex) 2 04-25 tablet (2 Healt h MG tablet 00:00: mg total) 00 by mouth 1 (one) time each day. lisinopril Yes [id number] 2.5mg QD Take 1 UT 2.5 MG 04-25 tablet Health tablet 00:00: (2.5 mg 00 total) by mouth 1 (one) time each day. metoprolol Yes [id number] 50mg Q.5D Take 1 U T succinate 04-25 tablet (50 Heal th XL 00:00: mg total) (Toprol-XL) 00 by mouth 2 50 MG 24 hr (two) tablet times a day. lisinopril 2020- No 2.5mg 2.5 mg. UT 2.5 MG 02-08 Health tablet 19:34: 00:00 53 :00 metoprolol 2020- No 50mg 50 mg. UT succinate 02-08 Health XL 19:34: 00:00 (Toprol-XL) 53 :00 50 MG 24 hr tablet lisinopril Yes [id number] 2.5mg QD Take 1 UT 2.5 MG 02-08 tablet Health tablet 00:00: (2.5 mg 00 total) by mouth 1 (one) time each day. metoprolol Yes [id number] 50mg Q.5D Take 1 U T succinate - tablet (50 Heal th XL 00:00: mg total) (Toprol-XL) 00 by mouth 2 50 MG 24 hr (two) tablet times a day. lisinopril 2020- No [id number] 2.5mg QD Take 1 UT 2.5 MG -04-25 tablet Health tablet 00:00: 00:00 (2.5 mg 00 :00 total) by mouth 1 (one) time each day. metoprolol 2020- No [id number] 50mg Q.5D Take 1 UT succinate 02-08 [...] capsule 59 l busPIRone 0 Yes 15mg Q.[id number] Take 15 mg Methodi (BUSPAR) 10 4-26 [id number] mouth [address] MG tablet 16:32: [...] Hospita capsule 59 l busPIRone Yes 15mg Q.98520202 Take 15 mg Methodi (BUSPAR) 10 4- [id number] by mouth 3 st MG tablet 11:32: [...] Hospita capsule 59 l busPIRone Yes 15mg Q.[id number] Take 15 mg Methodi (BUSPAR) 10 -26 [id number] [address] mouth [address] MG tablet 11:32: [...] Hospita capsule 59 l busPIRone Yes 15mg Q.[id number] Take 15 mg Methodi (BUSPAR) 10 - [id number] by mouth 3 st MG tablet 11:32: [...] day. Last mcg/actuati used February. inhaler linaCLOtide 2021-0 Yes 72ug QD Take 72 Met hodi [...] Take 10 mg M ethodi (PROzac) 10 12-[address] MG capsule 11:32: daily. Hospi ta 59 l prazosin Yes 5mg QD Take 5 mg Meth ketty (MINIPRESS) - by mouth st 5 MG 11:32: nightly. Hospita capsule 59 l busPIRone Yes 15mg Q.[id number] Take 15 mg Methodi (BUSPAR) 10 - [id number] by mouth 3 st MG tablet 11:32: 3D (three) Hospi ta 59 times a l day. ondansetron Yes 8mg Q8H Take 8 mg M ethodi ODT -[address] (ZOFRAN-ODT 11:32: every 8 Hos denise ) 8 MG 59 (eight) l disintegrat hours as ing tablet needed for nausea or vomiting. bumetanide 2020- No 2mg QD Take 2 mg U T (Bumex) 2 12-06 0913 by mouth 1 Hea lth MG tablet [...] tablet hours for 10 [place] [id number] 1{tbl} Q6H Take 1-2 Methodi en-codeine 3-24 03-[address] (TYLENOL 00:00: 04:59 mouth Hospita WITH 00 :00 every 6 l CODEINE #3) (six) 300-30 mg hours as per tablet needed for moderate pain for up to 5 days .acute pain. acetaminoph 2020- No [id number] 1{tbl} Q6H Take 1-2 Methodi en-codeine 3-24 03-[address] (TYLENOL 00:00: 04:59 mouth Hospita WITH 00 :00 every 6 l CODEINE #3) (six) 300-30 mg hours as per tablet needed for moderate pain for up to 5 days .acute pain. acetaminoph 2020- No [id number] 1{tbl} Q6H Take 1-2 Methodi en-codeine 3-24 03-[address] (TYLENOL 00:00: 04:59 mouth Hospita WITH 00 :00 every 6 l CODEINE #3) (six) 300-30 mg hours as per tablet needed for moderate pain for up to 5 days .acute pain. lacosamide 2020- No 200mg Q.5D Take 1 Met hodi (VIMPAT) 2 03-[address] 200 mg 00:00: 05:59 [...] Q.5D Take 1 Me thodi am (KEPPRA) 2- 03-[address] 500 MG 00:00: 05:59 (500 [...] 500mg Q.5D Take 500 Methodi am (KEPPRA) 09-12-[address] 500 MG 00:12: 00:00 [...] mouth l daily for 30 days. lacosamide No 150mg Q.5D Take 1 Met hodi [...] times a day for 30 days. levETIRAcet No 750mg Q.5D Take 1 Me thodi [...] 1{tbl} Q12H Take 1 M ethodi -pot 2-04 12-[address] clavulanate 00:00: 05:59 mouth Hosp arcenio (AUGMENTIN) 00 :00 every 12 l 875-125 mg (twelve) per tablet hours for 10 days. metoprolol 2019- No 100mg Take 100 M ethodi tartrate 05-08- mg by st (LOPRESSOR) 17:49: 00:00 mouth. Hos denise 100 mg 43 :00 l tablet morPHINE No 30mg Q.5D Take 30 mg Me [...] tablet day. diazePAM 2019- 2020- No 10mg Q.[id number] Take 10 mg Methodi (VALIUM) 5 05-08 [id number] [address] mouth [address] MG tablet 17:49: 00:00 3D (three) Hosp arcenio 43 :00 times a l day as needed for anxiety. penbutolol 2020- No 20mg QD Take 20 mg Methodi sulfate 05-[address] (PENBUTOLOL 17:49: 00:00 daily. Hos denise ORAL) 43 :00 l ondansetron 2019- No 4mg Q8H Take 4 mg Methodi ODT 05-[address] (ZOFRAN-ODT 17:49: 00:00 every 8 Ho spita ) 4 MG 43 :00 (eight) l disintegrat hours as ing tablet needed for nausea or vomiting. methocarbam 2019- No 750mg Q.5D Take 750 Methodi ol 05-[address] (ROBAXIN) 17:49: 00:00 mouth 2 Hosp arcenio 750 MG 43 :00 (two) l tablet times a day. metoprolol 2019- No 50mg Q.5D Take 50 mg Methodi succinate 05-[address] XL 16:17: 00:00 (two) Hospita (TOPROL-XL) 20 :00 times a l 50 mg 24 hr day. tablet lisinopriL 2019- 2020- No 2.5mg QD Take 2.5 M ethodi [...] for up to 30 days. lactulose 2019- 2020- No 20g Q.[id number] Take 30 mL Methodi 20 gram/30 05-08 [id number] (20 g s t mL solution 00:00: 04:59 3D total) by Hospita 00 :00 mouth 3 l (three) times a day as needed (CONSTIPAT ION) for up to 30 days. meclizine 2019- No 25mg Q.[id number] Take 1 [facility]i (ANTIVERT) 05-08 [id number] tablet (25 st 25 mg 00:00: 04:59 3D mg total) Hospit a tablet 00 :00 by mouth 3 l (three) times a day as needed for dizziness for up to 30 days. pregabalin 2019- No 50mg Q.[id number] Take 2 Methodi (LYRICA) 25 05-[id number] MG capsule 00:00: 04:59 3D [...] day for 30 days. lacosamide 2020- No 100mg Q.5D Take 1 Met hodi (VIMPAT) 05-[address] 100 mg 00:00: 00:00 (100 mg Hospita tablet 00 :00 total) by l mouth 2 (two) times a day for 30 days. gabapentin 2019-2019- No 600mg Q.5D Take 600 M ethodi (NEURONTIN) 05-06-[address] 600 mg 08:52: 00:00 [...] hours as needed for Wheezing. omeprazole 2020-0 2021- No 20mg QD Take [address] [facility] [...] total) by Center mouth daily. dicyclomine 2020-0 202- No 20mg Q.5D [...] ermann tablet 00 tab, 0 Refill(s) ferrous 2016-0 Yes 325 mg = 1 Bhavesh mario gluconate 7-03 tab, PO, l 325 mg oral 10:36: TID, # 90 H ermann tablet 00 tab, 0 Refill(s) Reglan 2016-0 No 10 mg, Memoria 7- Route: l 09:11: IVP, Drug [place] form: INJ, ONCE, Dosing Weight 68.182, kg, Priority: STAT, Start date: 02/13/16 4:11:00 CDT, Stop date: 02/13/16 4:11:00 CDT Sodium 2016-0 No 1,000 mL, Memori a Chloride 7- Rate: l 0.9% IV 09:11: 1,000 [place] 1000 mL 00 ml/hr, Infuse over: 1 hr, Route: IV, Dosing Weight 68.182 kg, Total Volume: 1,000, Start date: 02/13/16 4:11:00 CDT, Duration: 1 doses or times, Stop date: 02/13/16 5:10:00 CDT, Bolus Dose Reglan 2016-0 No 10 mg, Memoria 7- Route: l 09:11: IVP, Drug [place] 00 form: INJ, ONCE, Dosing Weight 68.182, kg, Priority: STAT, Start date: 02/13/16 4:11:00 CDT, Stop date: 02/13/16 4:11:00 CDT Sodium 2016-0 No 1,000 mL, Memori a Chloride 7- Rate: l 0.9% IV 09:11: 1,000 Antonio 1000 mL 00 ml/hr, Infuse over: 1 hr, Route: IV, Dosing Weight 68.182 kg, Total Volume: 1,000, Start date: 02/13/16 4:11:00 CDT, Duration: 1 doses or times, Stop date: 02/13/16 5:10:00 CDT, Bolus Dose Reglan 2016-0 No 10 mg, Memoria 7-03 Route: l 09:11: IVP, Drug [place] form: INJ, ONCE, Dosing Weight 68.182, kg, Priority: STAT, Start date: 02/13/16 4:11:00 CDT, Stop date: 02/13/16 4:11:00 CDT Sodium 2016-0 No 1,000 mL, Memori a Chloride 7- Rate: l 0.9% IV 09:11: 1,000 [place] 1000 mL 00 ml/hr, Infuse over: 1 [...] 2016-0 No 650 mg, Mem oria en 7- Route: PO, l 08:17: Drug form: [place] 00 TAB, ONCE, Dosing Weight 68.182, kg, Priority: STAT, Start date: 02/13/16 3:17:00 CDT, Stop date: 02/13/16 3:17:00 CDT Acetaminoph 2016-0 No 650 mg, Mem oria en 7- Route: PO, l 08:17: Drug form: [place] 00 TAB, ONCE, Dosing Weight 68.182, kg, Priority: STAT, Start date: 02/13/16 3:17:00 CDT, Stop date: 02/13/16 3:17:00 CDT Acetaminoph 2016-0 No 650 mg, Mem oria en 7- Route: PO, l 08:17: Drug form: [place] 00 TAB, ONCE, Dosing Weight 68.182, kg, Priority: STAT, Start date: 02/13/16 3:17:00 CDT, Stop date: 02/13/16 3:17:00 CDT Acetaminoph 2016-0 No 650 mg, Mem oria en 7- Route: PO, l 08:17: Drug form: [place] 00 TAB, ONCE, Dosing Weight 68.182, kg, Priority: STAT, Start date: 02/13/16 3:17:00 CDT, Stop date: 02/13/16 3:17:00 CDT Zofran 2016-0 No 4 mg, Memoria 7- Route: l 06:19: IVP, Drug [place] 00 form: INJ, ONCE, Dosing Weight 68.182, [...] Memoria 7- Route: l 06:19: IVP, Drug [place] 00 form: INJ, ONCE, Dosing Weight 68.182, kg, Priority: STAT, Start date: 02/13/16 1:19:00 CDT, Stop date: 02/13/16 1:19:00 CDT Zofran 2016-0 No 4 mg, Memoria 7- Route: l 06:19: IVP, Drug [place] 00 form: INJ, ONCE, Dosing Weight 68.182, kg, Priority: STAT, Start date: 02/13/16 1:19:00 CDT, Stop date: 02/13/16 1:19:00 CDT Saline 2015-0 No Notes: Memoria Flush 0.9% 7-03 (Same as: l 06:07: BD [place] 00 Posiflush) Saline 0 No Notes: Memoria Flush 0.9% 7-03 (Same as: l 06:07: BD [place] Posiflush) Saline No Notes: Memoria Flush 0.9% 7-03 (Same as: l 06:07: BD [place] Posiflush) Saline No Notes: Memoria Flush 0.9% 7-03 (Same as: l 06:07: BD [place] Posiflush) Ibuprofen Yes Special Memor ia 800 MG Oral 1-23 Instructio l Tablet 08:52: ns: Take [place] [Motrin] 00 with food Ibuprofen Yes Special Memor ia 800 MG Oral 1-23 Instructio l Tablet 08:52: ns: Take Antonio [Motrin] 00 with food Ibuprofen Yes Special Memor ia 800 MG Oral 1-23 Instructio l Tablet 08:52: ns: Take Antoino [Motrin] 00 with food Ibuprofen Yes Special Memor ia 800 MG Oral 1-23 Instructio l Tablet 08:52: ns: Take Antonio [Motrin] 00 with food Ketorolac No 4 days Memor ia 1-23 l 08:49: [place] 00 Ketorolac No 4 days Memor ia 1-23 l 08:49: [place] 00 Ketorolac No 4 days Memor ia 1-23 l 08:49: [place] 00 Ketorolac No 4 days Memor ia [...] Date Status Commen ts Source Name Name [facility] 2020-11-03 Completed [facility] 00:00:00 [facility] 2020-11-03 Completed [facility] 00:00:00 [facility] 2020-11-03 Completed [facility] 00:00:00 [facility] 2020-11-03 Completed [facility] 00:00:00 [facility] 2020-11-03 Completed [facility] 00:00:00 [facility] Vital Signs Vital Name Observation Time Observation Value Comments Source Systolic blood 2022-08-15 113 mm[Hg] [facility] pressure 04:00:00 [facility] Diastolic blood 2022-08-15 76 mm[Hg] [place] o f pressure 04:00:00 [facility] Heart rate 2022-08-15 91 /min [facility] 04:00:00 [facility] Respiratory rate 2022-08-15 24 /min [facility] 04:00:00 [facility] Oxygen saturation 2022-08-15 95 /min [facility] Arterial blood 04:00:00 [facility] by Pulse oximetry [place] Body temperature 2022-08-15 35.94 Cecily [facility] 02:49:00 [facility] Body height 2022-08-15 160 cm [facility] 02:49:00 [facility] Body weight 2022-08-15 68.04 kg [facility] 02:49:00 [facility] BMI 2022-08-15 26.57 kg/m2 [facility] 02:49:00 [facility] WEIGHT 2021-05-05 68.04 kg 20:18:00 HEIGHT 2021-05-05 165.1 cm 20:18:00 WEIGHT 2021-05-05 68.04 kg 20:18:00 HEIGHT 2021-05-05 165.1 cm 20:18:00 Systolic blood 2021-04-25 120 mm[Hg] [facility] pressure 16:25:00 Diastolic blood 2021-04-25 77 mm[Hg] [facility] pressure 16:25:00 Heart rate 2021-04-25 72 /min [facility] 16:25:00 Body height 2021-04-25 167.6 cm [facility] 16:25:00 Body weight 2021-04-25 78.926 kg [facility] 16:25:00 BMI 2021-04-25 28.08 kg/m2 [facility] 16:25:00 HEIGHT 2020-02-04 161 cm 00:00:00 WEIGHT 2020-02-04 68.04 kg 00:00:00 HEIGHT 2020-02-04 161 cm 00:00:00 WEIGHT 2020-02-04 68.04 kg 00:00:00 Systolic blood 2021-06-29 147 mm[Hg] [facility] pressure 16:16:09 [facility] Diastolic blood 2021-06-29 67 mm[Hg] [facility] pressure 16:16:09 [facility] Heart rate 2021-06-29 94 /min [facility] 16:16:09 Hospital Body temperature 2021-06-29 36.89 Cecily [facility] 16:16:09 Hospital Oxygen saturation 2021-06-29 94 /min [facility] in Arterial blood 16:16:09 [facility] Pulse oximetry Systolic blood 2021-05-06 124 mm[Hg] [facility] pressure 01:23:00 [facility] Diastolic blood 2021-05-06 68 mm[Hg] [facility] pressure 01:23:00 [facility] Heart rate 2021-05-06 84 /min [facility] 01:23:00 [facility] Body temperature 2021-05-[address] [facility] 01:23:00 [facility] Respiratory rate 2021-05-06 18 /min [facility] 01:23:00 [facility] Oxygen saturation 2021-05-05 99 /min [facility] Arterial blood 23:45:00 [facility] nter by Pulse oximetry Body height 2021-05-[address] [facility] 20:18:00 [facility] Body weight 2021-05-[address] [facility] 20:18:00 [facility] BMI 2021-05-05 24.96 kg/m2 [facility] 20:18:00 [facility] Systolic blood 2020-12-16 120 mm[Hg] [facility] L[facility] 11:22:00 Position: Sitting Diastolic blood 2020-12-16 77 mm[Hg] [facility] 11:22:00 Position: Sitting Body height 2020-12-16 63 [in_us] [facility] 11:22:00 Weight 2020-12-16 165 [lb_av] [facility] 11:22:00 Body mass index 2020-12-16 29.23 kg/m2 [facility] (BMI) [Ratio] 11:22:00 Heart Rate 2020-12-16 90 /min [facility] 11:22:00 Heart rate 2020-12-06 78 /min [facility] 15:01:00 Hospital Respiratory rate 2020-12-06 16 /min [facility] 15:01:00 Hospital Oxygen saturation 2020-12-06 97 /min [facility] in Arterial blood 15:01:00 [facility] Systolic blood 2020-12-06 124 mm[Hg] [facility] 13:03:19 Hospital Diastolic blood 2020-12-06 65 mm[Hg] [facility] 13:03:19 Hospital Body temperature 2020-12-06 36.39 Cecily [facility] 13:03:19 Hospital Body height 2020-12-03 165.1 cm [facility] 21:48:00 Hospital Body weight 2020-12-03 63.504 kg [facility] 21:48:00 Hospital BMI 2020-12-03 23.30 kg/m2 [facility] 21:48:00 Hospital Systolic blood 2020-12-02 112 mm[Hg] [facility] L[facility] 12:05:00 Position: Sitting Diastolic blood 2020-12-02 68 mm[Hg] [facility] LUE[facility] 12:05:00 Position: Sitting Body height 2020-12-02 63 [in_us] [facility] 12:05:00 Weight 2020-12-02 168 [lb_av] [facility] 12:05:00 Body mass index 2020-12-02 29.76 kg/m2 [facility] (BMI) [Ratio] 12:05:00 Heart Rate 2020-12-02 72 /min [facility] 12:05:00 Systolic (mm Hg) 2016-02-13 [facility] [...] (F) 09:14:00 Systolic (mm Hg) 2014-09-04 [facility] 09:14:00 Respitory Rate 2014-09-04 [facility] 07:11:00 Temperature Oral 2014-09-04 97.9 F Jhonny Gonsales rmann (F) 07:11:00 Heart Rate 2014-09-04 [facility] 07:11:00 Systolic (mm Hg) 2014-09-04 [facility] 07:11:00 Diastolic (mm Hg) 2014-09-04 [facility] 07:11:00 BMI Calculated 2014-09-04 [facility] 07:11:00 Height 2014-09-04 160.02 cm [facility] 07:11:00 Weight 2014-09-04 [facility] 07:11:00 Diastolic (mm Hg) 2014-08-24 [facility] 22:03:00 Temperature Oral 2014-08-24 98.0 F Jhonny Gonsales rmann (F) 22:03:00 Respitory Rate 2014-08-24 [facility] 22:03:00 Systolic (mm Hg) 2014-08-24 [facility] Dru rmann 22:03:00 Heart Rate 2014-08-24 [facility] 22:03:00 Systolic (mm Hg) 2014-08-24 [facility] 17:24:00 Respitory Rate 2014-08-24 [facility] 17:24:00 Diastolic (mm Hg) 2014-08-24 [facility] 17:24:00 Heart Rate 2014-08-24 [facility] 17:24:00 Temperature Oral 2014-08-24 98.2 F Jhonny Gonsales rmann (F) 17:24:00 Height 2014-08-24 160.02 cm [facility] 17:24:00 BMI Calculated 2014-08-24 [facility] 17:24:00 Weight 2014-08-24 [facility] 17:24:00 Procedures Procedure Date / Time Performing Clinician Source Performed EKG-12 LEAD 2022-08-15 04:15:29 Halima Vargas [facility] TEST, SERUM 2022-08-15 03:12:00 Halima Vargas [facility] TROPONIN I 2022-08-15 03:12:00 Halima Vargas [facility] COMP. METABOLIC PANEL 2022-08-15 03:12:00 Halima Vargas [facility] ([id number]) [facility] CBC WITH DIFF 2022-08-15 03:12:00 Halima Vargas [facility] XR KNEE 1 OR 2 VW RIGHT 2021-06-29 16:46:14 Braulio, [facility] CT SPINE CERVICAL WITHOUT 2021-05-05 22:50:00 Ryanne Hurtado [facility] IV CONTRAST [facility] CT BRAIN WITHOUT IV 2021-05-05 22:38:00 Ryanne Hurtado [facility] CONTRAST [facility] ED ECG INTERPRETATION 2021-05-05 20:57:00 Ryanne Hurtado [facility] LEVETIRACETAM LEVEL 2021-05-05 20:34:00 [facility] CBC W/PLT COUNT & AUTO 2021-05-05 20:34:00 Hurtado [facility] COMPREHENSIVE METABOLIC 2021-05-05 20:34:00 [facility] PANEL [facility] TROPONIN I 2021-05-05 20:34:00 Ryanne Hurtado [facility] CBC W/PLT COUNT & AUTO 2021-05-05 20:34:00 [facility] REPORT OF PROCEDURE - 2021-05-05 00:00:00 Provider, [facility] ENDOSCOPY SCAN Scanning [facility] [L] BMP8+eGFR 2020-12-16 00:00:00 [facility] [QL] CBC (INCLUDES 2020-12-16 00:00:00 [facility] DIFF/PLT) [QL] LIPID PANEL 2020-12-16 00:00:00 [facility] [QL] TSH, 3RD GENERATION 2020-12-16 00:00:00 [facility] W/REFLEX TO FT4 [QL] HEMOGLOBIN A1c 2020-12-16 00:00:00 [facility] POC GLUCOSE 2020-12-06 05:18:00 Obdulio Ragland UNMONITORED VIDEO-EEG 12 2020-12-05 19:27:44 Britni Arredondo [facility] HRS 1MIN-26HRS [facility] EEG SETUP 2020-12-05 09:23:13 [facility] 2020-12-04 16:25:57 Maria Elena [facility] POC GLUCOSE 2020-12-04 05:03:00 [facility] URINE DRUGS OF ABUSE 2020-12-04 04:55:00 [facility]AST 2020-12-04 02:48:09 Dorita [facility] KEPPRA (LEVETIRACETAM) 2020-12-04 01:43:00 Stevenson [facility] LEVEL ALCOHOL LEVEL, BLOOD 2020-12-04 01:43:00 [facility] TROPONIN 2020-12-04 01:43:00 Bharat Kevin [facility] spital XR CHEST 1 VW PORTABLE 2020-12-03 23:52:00 [facility] COVID-19 QUALITATIVE 2020-12-03 22:41:00 [facility] RT-PCR [place] CRITICAL CARE, E/M 2020-12-03 21:55:13 [facility] 30-74 MINUTES [facility] ECG ED PRELIMINARY 2020-12-03 21:55:13 [facility] INTERPRETATION [facility] HC COMPLETE BLD COUNT 2020-12-03 21:52:00 [facility] W/AUTO DIFF [place] PROTHROMBIN TIME WITH INR 2020-12-03 21:52:00 [place] [facility] PARTIAL THROMBOPLASTIN 2020-12-03 21:52:00 [facility] TIME (PTT) [facility] COMPREHENSIVE METABOLIC 2020-12-03 21:52:00 [facility] PANEL [place] TROPONIN 2020-12-03 21:52:00 [facility] ospital [facility] B NATRIURETIC PEPTIDE 2020-12-03 21:52:00 [facility]ALITATIVE, SERUM 2020-12-03 21:52:00 [facility] SCREEN [place] ESTIMATED GFR 2020-12-03 21:52:00 [facility] CREATINE KINASE, TOTAL 2020-12-03 21:52:00 [facility] (CPK) [facility] ECG 12-LEAD 2020-12-03 21:48:15 [facility] [L] BMP8+eGFR 2020-12-02 00:00:00 [facility] [QL] CBC (INCLUDES 2020-12-02 00:00:00 [facility] DIFF/PLT) [QL] LIPID PANEL 2020-12-02 00:00:00 [facility] [QL] HEMOGLOBIN A1c 2020-12-02 00:00:00 [facility] [QL] B TYPE NATRIURETIC 2020-12-02 00:00:00 [facility] PEPTIDE (BNP) URINALYSIS SCREEN AND 2020-11-18 00:45:00 [facility] MICROSCOPY, WITH REFLEX TO [place] CULTURE HC COMPLETE BLD COUNT 2020-11-17 22:57:00 [facility] W/AUTO DIFF [place] COMPREHENSIVE METABOLIC 2020-11-17 22:57:00 [facility] PANEL [place] ESTIMATED GFR 2020-11-17 22:57:00 [facility] [place] URINE CULTURE 2020-11-17 22:55:00 [facility] [place] XR HAND 3+ VW RIGHT 2020-11-03 04:24:40 Woo Greenberg [facility] EEG AWAKE/DROWSY LESS THAN 2020-09-17 16:49:14 Whit Alston [facility] 41 MIN VITAMIN B12 LEVEL 2020-09-17 10:40:00 [facility] VITAMIN B1 LEVEL, WHOLE 2020-09-17 10:40:00 [facility] BLOOD THYROID STIMULATING 2020-09-17 10:40:00 [facility] HORMONE LIPID PANEL 2020-09-17 10:40:00 Whit Alston spital HEMOGLOBIN A1C 2020-09-17 10:40:00 [facility] HIV 1 & 2 2020-09-17 10:40:00 Whit Alston spital SYPHILIS TREPONEMA SCREEN 2020-09-17 10:40:00 Whit Alston [facility] WITH RPR CONFIRMATION (REVERSE ALGORITHM) HC COMPLETE BLD COUNT 2020-09-17 10:40:00 [facility] W/AUTO DIFF BASIC METABOLIC PANEL 2020-09-17 10:40:00 [facility] MAGNESIUM LEVEL 2020-09-17 10:40:00 [facility]OP[facility]IN 2020-09-17 10:40:00 [facility] EST[facility] GFR 2020-09-17 10:40:00 [facility] ECG 12-LEAD 2020-09-17 10:27:21 [facility] COVID-19 QUALITATIVE 2020-09-16 21:32:00 [facility] RT-PCR ECG ED PRELIMINARY 2020-09-16 20:03:41 [facility] INTERPRETATION ECG 12-LEAD 2020-09-16 19:53:37 [facility] HC COMPLETE BLD COUNT 2020-09-16 19:49:00 [facility] W/AUTO DIFF CREATINE KINASE, TOTAL 2020-09-16 19:49:00 [facility] ([facility]K) COMPREHENSIVE METABOLIC 2020-09-16 19:49:00 [facility] PANEL ESTIMATED GFR 2020-09-16 19:49:00 [facility] EEG AWAKE/ASLEEP LESS THAN 2020-09-11 16:51:29 DickeyMaribel [facility] 41 MIN CLOSTRIDIUM DIFFICILE 2020-09-11 15:09:00 [facility] TOXIN TROPONIN 2020-09-11 11:59:00 Dickey Maribel [facility] LACTIC ACID LEVEL, SEPSIS 2020-09-11 11:59:00 Dickey [facility] - NOW AND REPEAT 2X EVERY 3 HOURS PROLACTIN LEVEL 2020-09-11 11:59:00 Maribel Dickey Ho spital TROPONIN 2020-09-11 08:50:00 Maribel Dickey spital LACTIC ACID LEVEL 2020-09-11 08:50:00 [facility] COVID-19 QUALITATIVE 2020-09-11 06:43:00 [facility] CT ABDOMEN PELVIS WO 2020-09-11 05:29:19 [facility] CONTR[facility] CT HEAD WO CONTRAST 2020-09-11 05:29:09 [facility]INE CULTURE 2020-09-11 05:27:00 [facility] CHEST 1 VW PORTABLE 2020-09-11 05:05:26 Jose Elias Torres [facility] ECG 12-LEAD 2020-09-11 05:04:54 Maribel Dickey spital LACTIC ACID LEVEL, SEPSIS 2020-09-11 05:02:00 Dickey [facility] - NOW AND REPEAT 2X EVERY 3 HOURS URINALYSIS SCREEN AND 2020-09-11 04:56:00 [facility]OS[facility], WITH REFLEX TO CULTURE URINE DRUGS OF ABUSE 2020-09-11 04:56:00 Jose Elias Torres [facility] SCREEN TROPONIN 2020-09-11 04:44:00 Maribel Dickey spital HCG QUALITATIVE, SERUM 2020-09-11 04:44:00 Cain Torreswpardeep Montano [facility] SCREEN CREATINE KINASE, TOTAL 2020-09-11 04:43:00 Jose Elias Torres [facility] (CPK) ECG ED PRELIMINARY 2020-09-11 04:35:32 Jose Elias Torres [facility] INTERPRETATION HC COMPLETE BLD COUNT 2020-09-11 04:32:00 [facility] W/AUTO DIFF COMPREHENSIVE METABOLIC 2020-09-11 04:32:00 [facility] PANEL ESTIMATED GFR 2020-09-11 04:32:00 [facility] CHLAMYDIA GONORRHOEAE AND 2020-07-16 07:47:[address] [facility] TRICHOMONAS PANEL WET PREP 2020-07-16 06:20:[address] [facility] CT ABDOMEN PELVIS WO 2020-07-16 03:58:20 [facility] CONTRAST COVID-19 QUALITATIVE 2020-07-16 03:16:00 [facility] RT-PCR HC COMPLETE BLD COUNT 2020-07-16 03:16:00 [facility] W/AUTO DIFF COMPREHENSIVE METABOLIC 2020-07-16 03:16:00 [facility] PANEL LIPASE LEVEL 2020-07-16 03:16:00 [facility] ESTIMATED GFR 2020-07-16 03:16:00 [facility] URINE CULTURE 2020-07-16 00:38:00 Inez García ospital [facility] HCG QUALITATIVE, URINE 2020-07-15 23:58:00 Pedro [facility] SCREEN [place] URINALYSIS SCREEN AND 2020-07-15 23:58:00 Pedro [facility] MICROSCOPY, WITH REFLEX TO Mendel CULTURE US DUPLEX VENOUS UPPER 2020-05-08 06:10:06 Florinda StewardhiAraceli [facility] EXTREMITY RIGHT Tari EEG EXTENDED 41 - 60 MINS 2020-05-07 21:36:38 [facility] HCG QUALITATIVE, SERUM 2020-05-07 17:51:00 [facility] S[facility] MRI BRAIN W WO CONTRAST 2020-05-07 03:11:37 [facility] TTE COMPLETE, WO CONTRAST, 2020-05-06 22:42:[address] [facility] W AGITATED SALINE ([id number]) Tari VITAMIN B12 LEVEL 2020-05-06 16:52:00 Katelynn horner [facility] FOLATE LEVEL 2020-05-06 16:52:[address] [facility] TROPONIN 2020-05-06 14:33:00 [facility] HC COMPLETE BLD COUNT 2020-05-06 12:04:00 [facility] W/AUTO DIFF COMPREHENSIVE METABOLIC 2020-05-06 12:04:00 [facility] PANEL TROPONIN 2020-05-06 12:04:00 [facility] ESTIMATED GFR 2020-05-06 12:04:00 [facility] COVID-19 QUALITATIVE 2020-05-06 07:30:00 [facility] RT-PCR URINE CULTURE 2020-05-06 06:34:00 [facility] CT HEAD WO CONTRAST 2020-05-06 06:10:12 [facility] HC COMPLETE BLD COUNT 2020-05-06 05:53:00 [facility] W/AUTO DIFF PARTIAL THROMBOPLASTIN 2020-05-06 05:53:00 [facility] TIME (PTT) PROTHROMBIN TIME WITH INR 2020-05-06 05:53:00 [facility] METABOLIC 2020-05-06 05:53:00 [facility] PANEL URINALYSIS SCREEN AND 2020-05-06 05:53:00 [facility] MICROSCOPY, WITH REFLEX TO CULTURE TROPONIN 2020-05-06 05:53:00 [facility] B NATRIURETIC PEPTIDE 2020-05-06 05:53:00 [facility] THYROID STIMULATING 2020-05-06 05:53:00 [facility] HORMONE AMMONIA LEVEL 2020-05-06 05:53:00 [facility] URINE DRUGS OF ABUSE 2020-05-06 05:53:00 [facility] SCREEN ALCOHOL LEVEL, BLOOD 2020-05-06 05:53:00 [facility] ESTIMATED GFR 2020-05-06 05:53:00 [facility] XR CHEST 1 VW PORTABLE 2020-05-06 05:49:36 [facility] POC GLUCOSE 2020-05-06 05:41:00 [facility] ECG 12-LEAD 2020-05-06 05:37:10 [facility] ECG ED PRELIMINARY 2020-05-06 05:14:03 [facility] INTERPRETATION Appendectomy [facility] Blood transfusion [facility] Laparoscopic Plan of Care Planned Activity Planned Date [...] Luke s Test 00:00:00 (procedure) [code = [facility] 13280920] Future Scheduled 2025-09-[address] [facility] Test 00:00:00 (procedure) [code = [facility] [id number]] Future Scheduled 2025-09-[address] [facility] Test 00:00:00 (procedure) [code = [facility] [id number]] Future Scheduled 2025-09-[address] [facility] Test 00:00:00 (procedure) [code = [facility] 08306605] Future Scheduled 2023-08-[address] [facility] Test 00:00:00 (procedure) [code = [facility] [id number]] Future Scheduled 2022-08-[address] [facility] Test 00:00:00 (12+) [code = Medical Center DEPRESSION SCREENING (12+)] Future Scheduled 2022-08-[address] [facility] Test 00:00:00 (12+) [code = [facility] DEPRESSION SCREENING (12+)] Future Scheduled 2022-07-28 COVID-19 VACCINE (#[facility]) [facility] Test 06:02:12 [code = COVID-19 VACCINE (#1)] Future Scheduled 2022-07-28 [facility] Test 06:02:12 (procedure) [code = 434803763] Future Scheduled 2022-07-28 [facility] Test 06:02:12 malignant neoplasm of cervix (procedure) [code = 389501565] Future Scheduled 2022-07-28 BREAST CANCER [facility] Test 06:02:12 SCREENING [code = BREAST CANCER SCREENING] Future Scheduled 2022-07-28 [facility] 06:02:12 [code = COLONOSCOPY SCREENING] Future Scheduled 2022-07-28 INFLUENZA VACCINE [facility] Test 06:02:12 [code = INFLUENZA VACCINE] Future Scheduled 2022-07-28 COVID-19 VACCINE (#1) [facility] Test 06:02:12 [code = COVID-19 VACCINE (#1)] Future Scheduled 2022-07-28 [facility] screening [facility] Test 06:02:12 (procedure) [code = 468949792] Future Scheduled 2022-07-28 [facility] Test 06:02:12 malignant neoplasm of cervix (procedure) [code = 311756067] Future Scheduled 2022-07-28 BREAST CANCER [facility] Test 06:02:12 SCREENING [code = BREAST CANCER SCREENING] Future Scheduled 2022-07-28 COLONOSCOPY SCREENING [facility] Test 06:02:12 [code = COLONOSCOPY SCREENING] Future Scheduled 2022-07-28 INFLUENZA VACCINE [facility] Test 06:02:12 [code = INFLUENZA VACCINE] Future Scheduled 2022-05-[address] [facility] Test 00[facility]00 [facility] Scre[facility] (12+) [code = Tobacco Cessation Counseling and Screening (12+)] Future Scheduled 2022-05-[address] [facility] Test 00:00:00 [facility] Scre[facility] (12+) [code = Tobacco Cessation Counseling and Screening (12+)] Future Scheduled 2022-04-13 INFLUENZA VACCINE (#1) [facility]00 [code = INFLUENZA Medical Ce nter VACCINE (#1)] Future Scheduled 2022-04-13 INFLUENZA VACCINE (#1) [facility] 00:00:00 [code = INFLUENZA Medical Ce nter VACCINE (#1)] Future Scheduled 2021-06-29 COVID-19 VACCINE (1) Met [facility] Test 11:36:01 [code = COVID-19 VACCINE (1)] Future Scheduled 2021-06-29 Hepatitis C screening [facility] Test 11:36:01 (procedure) [code = 843534689] Future Scheduled 2021-06-29 [facility] for [facility] Hospital Test 11:36:01 malignant neoplasm of cervix (procedure) [code = 511283050] Future Scheduled 2021-06-29 INFLUENZA VACCINE [facility] Test 11:36:01 [code = INFLUENZA VACCINE] Future Scheduled 2021-06-29 COVID-19 VACCINE (1) Met [facility] Test 11:36:01 [code = COVID-19 VACCINE (1)] Future Scheduled 2021-06-29 Hepatitis C screening [facility] Test 11:36:01 (procedure) [code = 144793086] Future Scheduled 2021-06-29 Scre[facility] for [facility] Center Hospital Test 11:36:01 malignant neoplasm of cervix (procedure) [code = 505641641] Future Scheduled 2021-06-29 [facility] Test 11:36:01 [code = INFLUENZA VACCINE] [...] Medica l Center cervix (procedure) [code = 289162606] Future Scheduled [address] [facility] [facility] Test 00:[facility]00 malignant neoplasm of [facility] cervix (procedure) [code = 196935687] Future Scheduled [address] [facility] Test 00:00:00 malignant neoplasm of [facility] Center cervix (procedure) [code = 196125623] Future Scheduled [address] [facility] Test 00:00:00 malignant neoplasm of [facility] Center cervix (procedure) [code = 847712232] Future Scheduled [address] [facility] Test 00:00:00 malignant neoplasm of [facility] Center cervix (procedure) [code = 895966132] Future Scheduled 1991 HEPATITIS C SCREENING CH [...] Medical More ter VACCINE (#1)] Future Scheduled 1974-03-27 COVID-19 VACCINE (#1) [facility]00 [code = COVID-[address] VACCINE (#1)] Future Scheduled [address] Test 00:00:00 (combo) [code = CT Medical C enter Colonography (combo)] Future Scheduled [address] [facility] Test 00:00:00 malignant neoplasm of [facility]ica l Center colon (procedure) [code = 925436964] Future Scheduled [address] [facility] [facility] Test 00:00:00 malignant neoplasm of [facility] Center colon (procedure) [code = 136865814] Future Scheduled [address] [facility] Test 00:00:00 malignant neoplasm of [facility] Center colon (procedure) [code = 924926705] Future Scheduled [address] [facility] Test 00:00:00 malignant neoplasm of [facility]ica [facility] Center colon (procedure) [code = 257826125] Future Scheduled 1973 Sigmoidoscopy [facility]] Medical Cente r Future Scheduled [address] [facility] 00:00:00 (combo) [code = CT Medical C enter Colonography (combo)] Future Scheduled [address] [facility] Test 00:00:00 malignant neoplasm of [facility]ica [facility] Center colon (procedure) [code = 240304971] Future Scheduled [address] [facility] Test 00:00:00 malignant neoplasm of [facility] Center colon (procedure) [code = 154501916] Future Scheduled [address] [facility] [facility] Test 00:00:00 malignant neoplasm of [facility] Center colon (procedure) [code = 701668037] Future Scheduled [address] [facility] Test 00:00:00 malignant neoplasm of Medica Center colon (procedure) [code = 761482278] Future Scheduled 1973 Sigmoidoscopy [facility]code [facility] S[facility]oscopy] Medical Catherinee r Future Scheduled [address] [facility] Test 00:00:00 malignant neoplasm of Medica l Center colon (procedure) [code = 294542031] Future Scheduled [address] [facility] Test 00[facility]00[facility]00 [facility] [code = 648478535] Future Scheduled COVID-19 VACCINE (1) [facility] Test [code = COVID-19 VACCINE (1)] Future Scheduled Hepatitis C screening [facility] Test (procedure) [code = 584684038] Future Scheduled [facility] Test malignant neoplasm of cervix (procedure) [code = 331651185] Future Scheduled INFLUENZA VACCINE [facility] Test [code = INFLUENZA VACCINE] Encounters Start End Encounter Admission Attending Care Care Encounter Source Date/Time Date/Time Type Type Clinicians Facility Department ID 2021-04-25 Outpatient [facility] [id number] [place] 12:28:46 [facility] 2020-12-18 Outpatient [facility] [id number] [place] 04:17:31 [facility] 2022-08-14 2022-08-14 [facility] [facility] 1.2.516.897 4144 3415 Univers 20:40:00 23:10:00 Halima [facility]13.10 [facility]2.7.2[facility]686 [facility] [id number] [address] 2022-08-14 2022-08-14 Emergency X [facility] ERT [id number] Univers 20:40:00 23:10:00 HALIMA kowalski [facility] 2022-05-16 2022-05-16 Outpatient Arceneaux_C VFP VFP 221 1653-20 Village 00:00:00 00:00:00 [id number] Family Practic e 2021-06-29 2021-06-29 Emergency James, 1.2.840.1 [id number] 21 [id number] Methodi 10:17:00 12:01:[address] 3.430.2.7 Hospit a .3.230838 l .8 2021-06-29 2021-06-29 Travel 1.2.840.1 1.2.214.108 8862 015844 Methodi 00:00:00 00:00:[address] 3.430.2.7 0.2.7.3.698 Ho spita .3.250728 084.8 l .8 2021-05-05 2021-05-06 Emergency ER Brewster, [facility] [id number] 20:22:00 01:24:[address] [facility] 2021-05-05 2021-05-05 Emergency ER [facility] Emergency 126140 6696 [facility] 20:07:00 20:07:00 2021-05-05 2021-05-05 Travel [facility] [id number] [facility] 00:00:00 00:00:00 [facility] 2021-04-25 2021-04-25 Office VINCE Olivares [facility] 1.2.840.114 [id number] 662 [place] 10:00:00 12:28:43 Visit Leandro [facility] 350.1.13.58 [address] 4 9.2.7.2.686 [id number] 4 2021-02-18 2021-02-18 Emergency E MATTHIAS, [facility] 7503 [facility] 08:39:00 12:51:00 TEJAL 2021-02-08 2021-02-08 Orders VINCE Henriquez [facility] 1.2.840.114 16665 9538 00:00:00 00:00:00 Only [place] MED 350.1.13.58 PLA[address] 4 9.2.7.2.686 [id number] 4 2021-02-08 2021-02-08 Orders Waleska Henriquez [facility] 1.2.840.11 4 [id number] [place] 00:00:00 00:00:00 Only [place] Henriquez MED 350.1.13.58 Health PLA[address] 4 9.2.7.2.686 [id number] 4 2020-12-20 2020-12-20 Telephone Vinson, 1.2.840.1 [id number] 2100 681378 Methodi 00:00:00 00:00:[address] 3.430.2.7 Hospit a .3.280414 l .8 2020-12-16 2020-12-16 Appointdidi OLIVARES [facility] 7410 7276 [place] 11:00:00 11:00:00 t; LEANDRO OLIVARES, Advanced P jn PANTOJA M.D. Cardiology [facility] Chalo [facility] 2020-12-14 2020-12-14 Telephone Vinson, 1.2.840.1 [id number] 2100 [id number] Methodi 00:00:00 00:00:[address] 3.430.2.7 Hospit a .3.714505 l .8 2020-12-07 2020-12-08 Outpatient E ERLINDA, SW PUL 7502 [facility] 17:43:00 13:15:00 VIRAL 2020-12-08 2020-12-08 EXT [facility] OP Khalid, EXT MSRDP 1.2.840.114 1 [id number] [place] 00:00:00 00:00:00 Adnan LOCATION 350.1.13.58 H ealth 9.2.7.2.686 [id number] 0 2020-12-08 2020-12-08 EXT [facility] OP Khalid, EXT MSRDP 1.2.840.114 1 [id number] [place] 00:00:00 00:00:00 Adnan LOCATION 350.1.13.58 H ealth 9.2.7.2.686 [id number] 0 2020-12-06 2020-12-06 Appointdidi DENNIS [facility] [id number] 7 [place] 14:00:00 14:00:00 t; [facility] BEHALIANE Phys ici ROSIO CAMACHO, LUCY Jose M.D. PATI, M.D. 2020-12-03 2020-12-06 [facility] Bladimir Baldwinien 1.2.840.1 [id number] Methodi 16:45:00 11:32:00 Encounter Obdulio Ragland 65971.1.[address] 3.430.2.7 Hospit a .3.429939 l .8 2020-12-02 2020-12-02 App[facility]INCE [facility] [id number] 1 [place] 11:15:00 11:15:00 t; LEANDRO OLIVARES, Surgery - Chalo Cruz M.D. 2020-11-17 2020-11-17 Emergency García, 1.2.840.1 [id number] 2100 [id number] Methodi 17:26:00 20:59:[address] Mendel 3.430.2.7 Hospit a .3.351519 l .8 2020-11-17 2020-11-17 VINCE Puente UTP [id number] 45 [place] 15:00:00 15:00:00 t; Carter ROQUE i, M.D. ans ASHTON, M.D. 2020-11-17 2020-11-17 Travel 1.2.840.1 1.2.999.145 9605 382693 Methodi 00:00:00 00:00:[address] 3.430.2.7 0.2.7.3.698 Ho spita .3.520297 084.8 l .8 2020-11-02 2020-11-03 Emergency Dionicio, 1.2.840.1 [id number] 2 [id number] Methodi 23:00:00 01:47:[address] Nelsy 3.430.2.7 Hospit a .3.010759 l .8 2020-11-02 2020-11-02 Travel 1.2.840.1 1.2.462.455 4212 984161 Methodi 00:00:00 00:00:[address] 3.430.2.7 0.2.7.3.698 Ho spita .3.523066 084.8 l .8 2020-09-16 2020-09-17 Emergency [place] 1.2.840.1 1041 24241 [id number] Methodi 13:34:00 13:30:00 Clarice Brannon 08891.1.[address] Lj Thakkar Britni 3.430.2.7 Hospita .3.601861 l .8 2020-09-10 2020-09-11 Emergency Jose Elias Torres. 1.2.840.1 1041 23921 [id number] Methodi 22:04:00 18:12:00 Oden, Lydia Gonzales 66596.1.[address] Maribel Dickey 3.430.2.7 H ospita Lj Thakkar Britni .3.540999 l .8 2020-09-10 2020-09-10 Travel 1.2.840.1 1.2.045.053 8481 831469 Methodi 00:00:00 00:00:[address] 3.430.2.7 0.2.7.3.698 Ho spita .3.205637 084.8 l .8 2020-07-15 2020-07-16 Emergency García, 1.2.840.1 [id number] 2099 [id number] Methodi 20:20:00 01:48:[address] Mendel 3.430.2.7 Hospit a .3.264121 l .8 2020-07-15 2020-07-15 Travel 1.2.840.1 1.2.048.882 1523 794697 Methodi 00:00:00 00:00:[address] 3.430.2.7 0.2.7.3.698 Ho spita .3.362253 084.8 l .8 2020-05-06 2020-05-08 Emergency Kevin Sood 1.2.840.1 1041 66183 [id number] Methodi 00:09:00 12:49:[address] Blaze Squires [address]24[address]1.[address] 3.430.2.7 Hospit a .3.447420 l .8 2020-05-06 2020-05-06 Travel 1.2.840.1 1.2.192.551 9822 992683 Methodi 00:00:00 00:00:[address] 3.430.2.7 0.2.7.3.698 Ho spita .3.990165 084.8 l .8 2020-02-20 2020-02-20 Emergency ER [facility] Emergency [id number] 3948 [facility] 19:04:00 19:04:00 2020-02-20 2020-02-20 Outpatient FBCOVID FBCOVID P-28261 -20 FBCOVID 00:00:00 00:00:00 772926 3940-06-24 2020-02-04 [facility] [id number] 03840 [place] 10:15:00 23:59:00 CWANZA [facility] 2020-02-04 2020-02-04 Emergency ER [facility] Emergency [id number] 6145 [facility] 05:29:00 05:29:00 2019-12-03 2019-12-03 Emergency E BRITNI RODRIGUEZ [facility] 7501 Memoria 16:11:00 19:03:00 [facility] 2019-12-03 2019-12-03 Outpatient KARISHMA, [facility] 0122 Memoria 17:00:00 18:55:00 THOMAS [facility] 2019-10-12 2019-10-12 Emergency [facility] [id number] [facility] 17:06:00 17:06:00 [id number] 2019-08-25 2019-08-25 Emergency E [facility] NW 0013 NW 17:44:00 17:44:00 2016-02-13 2016-02-13 [facility] [id number] 475 Memoria 05:43:00 11:41:00 Emergency r Antonio 00 l [facility] 2016-02-13 2016-02-13 EC nullFlavo [facility] [id number] 475 Memoria 05:43:00 11:41:00 Emergency r Antonio 00 l [facility] 2016-02-13 2016-02-13 Outpatient Sravanthi [facility] [id number] 8256 00:43:00 06:41:00 Malorie 00 Suzanne 2014-09-04 2014-09-04 EC nullFlavo [facility] [id number] 675 Memoria 07:09:00 09:15:00 Emergency r Antonio 19 l [facility] 2014-09-04 2014-09-04 EC nullFlavo [facility] [id number] 675 Memoria 07:09:00 09:15:00 Emergency r Odessa 19 l [facility] 2014-09-04 2014-09-04 Outpatient [facility], 2.16.840. 2.16.840.1. [id number] 01:09:00 03:15:00 Tatsuo 1.328321. 367590.3.61 19 3.615.0.1 5.0.073 89 1454-01-12 2014-08-24 EC nullFlavo [facility] [id number] 675 Memoria 17:17:00 22:15:00 Emergency r Antonio 18 l [facility] 2014-08-24 2014-08-24 EC nullFlavo [facility] [id number] 675 Memoria 17:17:00 22:15:00 Emergency r Odessa 18 l [facility] 2014-08-24 2014-08-24 Outpatient [facility], 2.16.840. 2.16.840.1. [id number] 11:17:00 16:15:00 Tatsuo 1.630253. 988634.3.61 18 3.615.0.1 5.0.101 01 Results Test Description Test Time Test Comments Results Result Comments Source TEST, SERUM 2022-08-15 04:20:10 Test Item Value Reference Range Interpretation Comme nts PREG SERUM (test code = 5864200476) Negative CIRO (test code = CIRO) Less than 10 IU/L. ?If low titer or ectopic is suspected, resubmit specimen in 48-72 hours. [facility] [id number] 03:49:08 Test Item Value Reference Interpretation Comments Range TROPONIN I (test 0.001 ng/mL See_Comment [Automated code = 0401356111) message] The system which generated this result [...] biotin. Lab Interpretation Normal (test code = 47524-0) [facility]. METABOLIC PANEL (05965)2022-08-15 03:37:26 Test Item Value Reference Range Interpretation Comments NA (test code = 138 mmol/L 135-145 3845914387) K (test code = 3.6 mmol/L 3.5-5.0 2418873102) CL (test code = 105 mmol/L 98-108 0422542216) CO2 TOTAL (test code 24 mmol/L 23-31 = 6935562379) AGAP (test code = 2-16 6992624118) BUN (test code = 9 mg/dL 7-23 6336313807) GLUCOSE (test code = 105 mg/dL 70-110 5497537991) CREATININE (test code 0.75 mg/dL 0.50-1.04 = 0037525450) TOTAL BILI (test code 0.6 mg/dL 0.1-1.1 = 9346384767) CALCIUM (test code = 8.7 mg/dL 8.6-10.6 1288012533) T PROTEIN (test code 6.7 g/dL 6.3-8.2 = 4218454313) ALBUMIN (test code = 3.9 g/dL 3.5-5.0 8169869433) ALK PHOS (test code = 69 U/L 34-122 9200977164) ALTv (test code = 35 U/L 5-35 2-6) AST(SGOT) (test code 27 U/L 13-40 = 0895046022) eGFR (test code = mL/min/1.73m2 9493036778) CIRO (test code = CIRO) Association of [...] or urine or abnormalities in imaging tests). [facility] WITH [id number] 03:25:05 Test Item Value Reference Range Interpretation Comments WBC (test code = See_Comment [Automated 5651-2) message] The sy stem which generated this result transmitted reference range : 4.30 - 11.10 10*3/?L. The reference range was not used to interpret this result as normal/abnormal . RBC (test code = See_Comment [Automated 789-8) message] The sy stem which generated this [...] RDW-SD (test code = 41.3 fL 39.0-49.9 36556-6) RDW-CV (test code = 12.5 % 12.0-15.5 788-0) PLT (test code = See_Comment H [Automated 777-3) message] The sy stem which generated this result transmitted reference range : 166 - 358 10*3/ ?L. The reference r ozzy was not used to interpret this result as normal/abnormal . MPV (test code = 9.4 fL 9.5-12.9 L 97601-1) NRBC/100 WBC (test See_Comment [Automat ed code = 1427931365) message] The system which generated this result transmitted reference range : 0.0 - 10.0 /100 WBCs. The refer ence range was not u sed to interpret th is result as normal/abnormal . NRBC x10^3 (test code See_Comment [Auto mated = 5864368175) message] The s ystem which generated this result transmitted reference range : 10*3/?L. The reference range was not used to interpret this result as normal/abnormal . GRAN MAT (NEUT) % 55.2 % (test code = 770-8) IMM GRAN % (test code 0.50 % = 8104167758) LYMPH % (test code = 30.7 % 736-9) MONO % (test code = 6.4 % 5905-5) EOS % (test code = 6.2 % 713-8) BASO % (test code = 1.0 % 706-2) GRAN MAT x10^3(ANC) 5.54 10*3/uL 1.88-7.09 (test code = 1031344680) IMM GRAN x10^3 (test 0.05 10*3/uL 0.00-0.06 code = 1430899882) LYMPH x10^3 (test code 3.08 10*3/uL 1.32-3.29 = 731-0) MONO x10^3 (test code 0.64 10*3/uL 0.33-0.92 = 742-7) EOS x10^3 (test code = 0.62 10*3/uL 0.03-0.39 H 711-2) BASO x10^3 (test code 0.10 10*3/uL 0.01-0.07 H = 704-7) Lab Interpretation Abnormal (test code = 86976-1) [facility] [id number] 14:27:33 Test Item Value Reference Interpretation Comments Range Levetiracetam (test <2.0 mcg/mL L Referen ce Range: code = 0354888) 12.0-46.0 T oxic level is not we ll established. Interpretation should include a clinical evalua tion. For additional information, pl ease refer tohttp://educat ion.Yooli .Wrnch/ faq/LMN630(This link is being provid ed forinformationa l/edu cational purpos es only.) This jose t was developed and i ts analytical performance characteristics have been determined by [employer]. It has not been cleared or appr christiano by theFDA. This assay has been validated pursu ant to the CLIA regulations and is used for clinic al purposes. CIRO (test code = Performing Lab CIRO) *GAGANDEEP [facility], [address] [place] [phone] Parminder Szymanski MD Lab Interpretation Abnormal (test code = 33881-0) [facility] [id number] 14:27:33 Test Item Value Reference Interpretation Comments Range Levetiracetam (test <2.0 mcg/mL L Referen ce Range: code = 6540668) 12.0-46.0 To xic level is not we ll established. Interpretation should include a clinical evalua tion. For additional information, pl ease refer tohttp://educat ion.Yooli .Wrnch/ faq/GMZ168(This link is being provid ed forinformationa l/edu cational purpos es only.) This jose t was developed and i ts analytical performance characteristics have been determined by [employer]. It has not been cleared or appr christiano by theFDA. This assay has been validated pursu ant to the CLIA regulations and is used for clinic al purposes. CIRO (test code = Performing Lab CIRO) *GAGANDEEP [employer] [facility], [address] [place] [phone] Parminder Szymanski MD Lab Interpretation Abnormal (test code = 03058-3) [facility] CenterCT, BRAIN, WITHOUT [id number] 23:05:00 Unlisted Reason for Exam - Click Yes and Enter Reason Below->No [facility] 1975 Sex: [...] Date/Time: 05/05/2021 23:05:29 CT, SPINE, CERVICAL, WO [id number] 23:05:00Unlisted Reason for Exam - Click Yes and Enter Reason Below->No [facility] : 1975 Sex: [...] Aneudy Asencio MDReport Verified Date/Time: 05/05/2021 23:05:29 [facility] [id number] 21:22:45 Test Item Value Reference Range Interpretation Comments Troponin I (test code = <0.03 0.00-0.15 40806-4) CIRO (test code = CIRO) Troponin I [...] THELMA Lab Interpretation (test Normal code = 92324-6) [facility]rop[facility] [id number] 21:22:45 Test Item Value Reference Range Interpretation Comments Troponin I (test code = <0.03 0.00-0.15 25663-5) CIRO (test code = CIRO) Troponin I [...] THELMA Lab Interpretation (test Normal code = 19436-2) [facility] CenterTR[facility]THAN [id number] 21:22:45 Test Item Value Reference Range Interpretation [...] failure, acidosis, acute neurological disease, and persistent tachyarrhythmia.Pig Lead Melter Helper ID - JUSTINComprehensive metabolic [id number] 21:20:36 Test Item Value Reference Interpretation Comments Range Protein, Total (test 7.5 See_Comment Specime n code = 2885-2) slightly hemolyzed [Automated message] The system which generated this result transmitted reference range : 6.0 - 8.5 gm/dL . The reference range was not used to interpret this result as normal/abnormal . Albumin (test code = 4.1 g/dL 3.5-5.0 [place] n 55973-2) slightly hemolyzed Alkaline Phosphatase 72 U/L 30-115 (test code = 6768-6) Total Bilirubin 1.0 mg/dL 0.1-1.2 Specimen (test code = 1974-2) slightl y hemolyzed Sodium (test code = 141 meq/L 915-010 5461-2) Potassium (test code 3.8 meq/L 3.6-5.5 Specime n = 2823-3) slightly hemolyzed Chloride (test code 104 meq/L 98-106 = 5-0) CO2 (test code = 24 meq/L 20-29 2027-9) BUN (test code = 7 mg/dL 10-26 L 3094-0) Creatinine (test 0.81 mg/dL 0.50-1.20 Specimen code = 2160-0) slightly hemolyzed Glucose (test code = 92 mg/dL 70-110 2345-7) Calcium (test code = 9.4 mg/dL 8.5-10.5 10699-2) AST (test code = 21 U/L 5-40 Specimen 1920-8) slightly hemolyzed ALT (test code = 27 U/L 5-50 Specimen 1742-6) slightly hemolyzed EGFR (test code = 76 mL/min/1[place]73 [place] [address]-4) m NOT ACCURATE CREATININE CLEARANCE IN PREDICTING GLOMERULAR FILTRATION RATE . ESTIMATED GFR I S NOT APPLICABLE FOR DIALYSIS PATIENTS. CIRO (test code = Pig Lead Melter Helper ID - CIRO) JUSTINOperator ID - JUSTINOperator [...] THELMA Lab Interpretation Abnormal (test code = 58247-3) [facility] [id number] 21:20:36 Test Item Value Reference Interpretation Comments Range Protein, Total (test 7.5 See_Comment Specime n code = 2885-2) slightly hemolyzed [Automated message] The system which generated this result transmitted reference range : 6.0 - 8.5 gm/dL . The reference range was not used to interpret this result as normal/abnormal . Albumin (test code = 4.1 g/dL 3.5-5.0 [place] n [address]-8) slightly hemolyzed Alkaline Phosphatase 72 U/L 30-115 (test code = 6768-6) Total Bilirubin 1.0 mg/dL 0.1-1.2 Specimen (test code = 1974-2) slightl y hemolyzed Sodium (test code = 141 meq/L 519-547 0626-2) Potassium (test code 3.8 meq/L 3.6-5.5 Specime n = 0743-3) slightly hemolyzed Chloride (test code 104 meq/L 98-106 = 2075-0) CO2 (test code = 24 meq/L 20-29 8-9) BUN (test code = 7 mg/dL 10-26 L 3094-0) Creatinine (test 0.81 mg/dL 0.50-1.20 Specimen code = 2160-0) slightly hemolyzed Glucose (test code = 92 mg/dL 70-110 2345-7) Calcium (test code = 9.4 mg/dL 8.5-10.5 03915-5) AST (test code = 21 U/L 5-40 Specimen 1920-8) slightly hemolyzed ALT (test code = 27 U/L 5-50 Specimen 1742-6) slightly hemolyzed EGFR (test code = 76 mL/min/1.73 [place] [address]-9) m NOT ACCURATE CREATININE CLEARANCE IN PREDICTING GLOMERULAR FILTRATION RATE . ESTIMATED GFR I S NOT APPLICABLE FOR DIALYSIS PATIENTS. CIRO (test code = Pig Lead Melter Helper ID - CIRO) JUSTINOperator ID - JUSTINOperator [...] THELMA Lab Interpretation Abnormal (test code = 40966-1) [facility] CenterCOMPREHENSIVE METABOLIC [id number] 21:20:36 Test Item Value Reference Range Interpretation [...] S NOT APPLICABLE FOR DIALYSIS PATIEN TS. Pig Lead Melter Helper ID - JUSTINOperator ID - JUSTINOperator ID - JUSTINOperator ID - JUSTINOperator ID - JUSTINOperator ID - JUSTINOperator ID - JUSTINOperator ID - JUSTINOperator ID - JUSTINOperator ID - JUSTINOperator ID - JUSTINOperator ID - JUSTINOperator ID - JUSTINOperator ID - JUSTINOperator ID - JUSTINOperator ID - JUSTINOperator ID - JUSTINOperator ID - JUSTINOperator ID - JUSTINCBC with platelet count + automated [id number] 20:51:36 Test Item Value Reference Range Interpretation Comments WBC (test code = 6690-2) 12.0 See_Comment H [A utomated message] The system [employer] generated this result transmitted ref erence range: 4.0 - 10 .0 K/L. The refe rence range was not u sed to interpret this result as normal/abnor mal. RBC (test code = 789-8) 4.84 See_Comment [Au tomated message] The system [employer] generated this result transmitted ref erence range: 4.00 - 5 .00 M/L. The refe rence range was not u sed to interpret this result as normal/abnor mal. MCHC (test code = 786-4) 34.8 See_Comment [A utomated message] The system [employer] generated this result transmitted ref erence range: [...] H [Aut omated message] 777-3) The system [employer] generated this result transmitted ref erence range: 150 - 43 0 K/CU MM. The referen ce range was not u sed to interpret this result as normal/abnor mal. MPV (test code = 9.7 fL 6.0-11.5 69776-8) nRBC (test code = 413) 0 See_Comment [Aut omated message] The system [employer] generated this result transmitted ref erence range: [...] See_Comment [Aut omated message] 670) The system [employer] generated this result transmitted ref erence range: 1.80 - 8 .00 K/L. The refe rence range was not u sed to interpret this result as normal/abnor mal. # Lymphs (test code = 3.61 See_Comment [Auto mated message] 414) The system [employer] generated this result transmitted ref erence range: 1.48 - 4 .50 K/L. The refe rence range was not u sed to interpret this result as normal/abnor mal. # Monos (test code = 0.86 See_Comment [Autom ated message] 415) The system [employer] generated this result transmitted ref erence range: 0.00 - 1 .30 K/L. The refe rence range was not u sed to interpret this result as normal/abnor mal. # Eos (test code = 416) 0.41 See_Comment [Au tomated message] The system [employer] generated this result transmitted ref erence range: 0.00 - 0 .50 K/L. The refe rence range was not u sed to interpret this result as normal/abnor mal. # Baso (test code = 417) 0.10 See_Comment [A utomated message] The system [employer] generated this result transmitted ref erence range: 0.00 - 0 .20 K/L. The refe rence range was not u sed to interpret this result as normal/abnor mal. Immature 0 % 0-0 Granulocytes-Relative (test code = 2801) Lab Interpretation (test Abnormal code = 08535-5) [facility] with platelet count + automated [id number] 20:51:36 Test Item Value Reference Range Interpretation Comments WBC (test code = 6690-2) 12.0 See_Comment H [A utomated message] The system [employer] generated this result transmitted ref erence range: 4.0 - 10 .0 K/L. The refe rence range was not u sed to interpret this result as normal/abnor mal. RBC (test code = 789-8) 4.84 See_Comment [Au tomated message] The system [employer] generated this result transmitted ref erence range: 4.00 - 5 .00 M/L. The refe rence range was not u sed to interpret this result as normal/abnor mal. MCHC (test code = 786-4) 34.8 See_Comment [A utomated message] The system [employer] generated this result transmitted ref erence range: [...] H [Aut omated message] 777-3) The system [employer] generated this result transmitted ref erence range: 150 - 43 0 K/CU MM. The referen ce range was not u sed to interpret this result as normal/abnor mal. MPV (test code = 9.7 fL 6.0-11.5 43024-4) nRBC (test code = 413) 0 See_Comment [Aut omated message] The system [employer] generated this result transmitted ref erence range: [...] See_Comment [Aut omated message] 670) The system [employer] generated this result transmitted ref erence range: 1.80 - 8 .00 K/L. The refe rence range was not u sed to interpret this result as normal/abnor mal. # Lymphs (test code = 3.61 See_Comment [Auto mated message] 414) The system [employer] generated this result transmitted ref erence range: 1.48 - 4 .50 K/L. The refe rence range was not u sed to interpret this result as normal/abnor mal. # Monos (test code = 0.86 See_Comment [Autom ated message] 415) The system [employer] generated this result transmitted ref erence range: 0.00 - 1 .30 K/L. The refe rence range was not u sed to interpret this result as normal/abnor mal. # Eos (test code = 416) 0.41 See_Comment [Au tomated message] The system [employer] generated this result transmitted ref erence range: 0.00 - 0 .50 K/L. The refe rence range was not u sed to interpret this result as normal/abnor mal. # Baso (test code = 417) 0.10 See_Comment [A utomated message] The system [employer] generated this result transmitted ref erence range: 0.00 - 0 .20 K/L. The refe rence range was not u sed to interpret this result as normal/abnor mal. Immature 0 % 0-0 Granulocytes-Relative (test code = 2801) Lab Interpretation (test Abnormal code = 89914-4) [facility] W/PLT COUNT & AUTO [id number] 20:51:36 Test Item Value Reference Range Interpretation [...] (BEAKER) (test code = 2801) Continuous EEG [id number] 01:51:44CONTINUOUS VIDEO-EEG MONITORING REPORT - END OF STUDY Patient Name: Shanna GuerreroRN#: [id number] Date of : 1975 Initial Study Start [...] seizures captured. Onelia Hair MD ICD-10 Code: D651Tgawhhxnba EEG alzqmrksxi2755-13-03 12:59:42 CONTINUOUS VIDEO-EEG MONITORING REPORT Patient Name: Shanna Mora#: [id number] Date of : 1975 Initial Study Start [...] seizures captured. Onelia Hair MD ICD-10 Code: B142XIU 12 [id number] 05:31:10 Test Item Value Reference Range Interpretation Comments Ventricular rate (test code = 253) Atrial rate (test code = 255) FL interval (test code = 266) QRSD interval [...] 04:27,-Vent. rate has increased BY 62 B[facility] [id number] 05:31:10 Test Item Value Reference Range Interpretation Comments Ventricular rate (test code = 253) Atrial rate (test code = 255) FL interval (test code = 266) QRSD interval [...] 04:27,-Vent. rate has increased BY 62 BPM- [facility] 12 [id number] 05:31:10 Test Item Value Reference Range Interpretation Comments Ventricular rate (test code = 253) Atrial rate (test code = 255) FL interval (test code = 266) QRSD interval [...] 04:27,-Vent. rate has increased BY 62 BPM- [facility] (routine) - Baseline [id number] 01:47:11VIDEO-EEG RECORDING AWAKE & ASLEEP - Baseline [...] Hair MD ICD-10 Code: R569CT Head Wo Ebqptkrs6465-83-57 02:53:14EXAMINATION: CT HEAD WO CONTRAST CLINICAL HISTORY: [...] No CT evidence of acute intracranial abnormality. [id number] Interface, Radiology Results - 12/03/2020 9:56 PM [...] IMPRESSION:1. No CT evidence of acute intracranial abnormality.[id number] [facility] RNA [Presence] in Respiratory specimen by SOREN with probe [id number] 02:03:42 Test Item Value Reference Range Interpretation Comments SARS-CoV-2 (COVID-19) RNA Not detected Not-Detected [Presence] in Respiratory specimen by SOREN with probe detection (test code = 95653-6) Whether patient is employed in a healthcare setting (test code = 87760-6) Whether the patient has symptoms related to condition of interest (test code = 08941-8) Patient was hospitalized because of this condition (test code = 03184-9) Whether the patient was admitted to intensive care unit (ICU) for condition of interest (test code = 45483-2) Whether patient resides in a congregate care setting (test code = 42330-2) [place] [facility] Chest 1 Vw [id number] 23:58:22EXAMINATION: XR CHEST 1 VW PORTABLE CLINICAL [...] no consolidation or effusion.3.The bones are intact.1D2RAD_P I77Racihqpmr [facility] ChildrenCRITICAL [id number] 21:55:13Bladimir Brumfield MD 12/04/2020 3:12 PMCritical CarePerformed by: Bladimir Brumfield MDAuthorized by: Bladimir Cisse MD Critical care provider statement: Critical care time (minutes): 35 Critical care time was exclusive of: Separately billable procedures and treating other patients Critical care wasnecessary to treat or prevent imminent or life-threatening deterioration of the following conditions: 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 failure or compromise Critical care was time spent personally by me on the following activities: Blood draw for specimens, development of treatment plan with patient or surrogate, discussions withconsultants, discussions with primary provider, evaluation of patient's response to treatment, examination of patient, ordering and performing treatments and interventions, ordering and review of laboratory studies, ordering and review of radiographic studies, pulse oximetry, re-evaluation of patient's condition and review of old charts Moo 'yes' if you are taking over critical care for this patientfrom another provider.: [facility] ED Preliminary Interpretation - Not an [id number] 21:55:13 Bladimir Brumfield MD 12/04/2020 3:12 [facility] ED Preliminary Interpretation - Not an OrderPerformed by: Bladimir Brumfield MDAuthorized by: Bladimir Brumfield MD ECG reviewed by ED Physician in the absence of a porcelain buildup assistant: yes Rate: ECG rate: 119Rhythm: Rhythm: sinus tachycardia Ectopy: Ectopy: none QRS: QRS axis: Normal QRS intervals: NormalConduction: Conduction: normal ST segments: ST segments: NormalT waves: T waves: normalUrine [id number] 01:10:19 Test Item Value Reference Range Interpretation Comments Urine culture (test SEE COMMENT Bacteriu mario screen code = 1187794) negative. [facility] [id number] 01:10:19 Test Item Value Reference Range Interpretation Comments Urine culture (test SEE COMMENT Bacteriu mario screen code = 4183681) negative. [facility] [id number] 01:10:19 Test Item Value Reference Range Interpretation Comments Urine culture (test SEE COMMENT Bacteriu mario screen code = 8826103) negative. [facility] X[facility] HAND MIN 3 VWS RIGHT [id number] 15:17:00Images acquired, not reported on this accession number.[facility] Hand 3+ Vw Right 2020-11-03 04:37:16EXAMINATION: XR HAND 3 VW RIGHT INDICATION: dog bite COMPARISON: None IMPRESSION: 3 views of the right hand were obtained.No visible acute fracture or dislocation.No visible radiodense foreign material. [facility], Radiology Results Incoming - 11/02/2020 11:40 PM CDT EXAMINATION: XR HAND 3 VW RIGHTINDICATION: dog biteCOMPARISON: NoneIMPRESSION:3 views of the right hand were obtained.No visible acute fracture or dislocation.No visible radiodense foreign material.[facility] ([facility] 2020-09-17 16:59:35Date of Study Completion: September [...] movements noted on this tracing by the freezer laboratory technician did not have an epileptic correlate. [...] deprivation or a prolonged recording during sleep wouldincrease the statistical likelihood of detecting interictal discharges, and should be considered if pursuing a diagnosis of epilepsy.SARS-CoV-2 (COVID-19) RNA [Presence] in Respiratory specimen by SOREN with probe [id number] 00:31:49 Test Item Value Reference Range Interpretation Comments SARS-CoV-2 (COVID-19) RNA Not detected Not-Detected [Presence] in Respiratory specimen by SOREN with probe detection (test code = 66760-9) [facility] (routine)2020-09-11 20:16:18Date of Service: September 11ate of [...] in Respiratory specimen by SOREN with probe [id number] 07:15:55 Test Item Value Reference Range Interpretation Comments SARS-CoV-2 (COVID-19) RNA Not detected Not-Detected [Presence] in Respiratory specimen by SOREN with probe detection (test code = 98460-3) [facility] Ab[facility] Pelvis Wo Ptkhjefk4831-63-47 05:45:01EXAMINATION: CT ABDOMEN PELVIS WO CONTRAST HISTORY: [...] No bowel obstruction. [id number] Interface, Radiology Results [facility] - 09/10/2020 11:48 PM CST EXAMINATION: CT [...] No high grade enterocolitis. No bowel obstruction.1D2RA D_PS02[facility] ([facility]19) RNA [Presence] in Respiratory specimen by SOREN with probe [id number] 05:23:42 Test Item Value Reference Range Interpretation Comments SARS-CoV-2 (COVID-19) RNA Not detected Not-Detected [Presence] in Respiratory specimen by SOREN with probe detection (test code = 96111-9) [facility]ITALTransthoracic Echocardiogram Complete, (w Contrast, Strain and 3D if needed)2020-05-11 04:52:19 Test Item Value Reference Range Interpretation Comments Velocity Ratio (V1/V2) 0.85 m/s (test code = 4689) IVS,d (test code = 1.00 cm 3968823252) EF (test code = 52.31 % 3097313229) Ascending aorta (test 2.67 cm code = 8721377550) LVPWD,d (test code = 1.00 cm 5017862478) AoV Mean PG (test code mmHg = 1109877192) AV LVOT peak gradient mmHg (test code = 7895550396) MV mean gradient (test mmHg code = 7749348802) MV valve area p 1/2 3.31 cm2 method (test code = 0077854157) PV Pk Grad (test code = mmHg 1059897120) E/A ratio (test code = 4816565902) E wave decelartion time msec (test code = 0571521738) LVOT Diam,S (test code 1.98 cm = 5113878418) LVOT area (test code = 3.08 cm2 1998573156) LVOT Vmax (test code = 0.96 m/s 2753156355) LVOT VTI (test code = 0.21 m 4964223752) RVOT Vmax (test code = 0.58 m/s 6658892751) AoV Peak PG (test code mmHg = 3878763986) MV Peak E Giuliano (test 0.94 m/s code = 9977921045) MV stenosis pressure 66.39 ms 1/2 time (test code = 3666529499) MV Peak A Giuliano (test 0.74 m/s code = 7510815410) Ao Root Diameter (test 2.99 cm code = 9564600634) AoV Area, Vmax (test 2.60 cm2 code = 8129841326) AoV Area, VTI (test 2.95 cm2 code = 2807443516) AoV Vmax (test code = 1.13 m/s 7502069860) IVS/LVPW,2D (test code = 9972176015) Left Atrium Dimension 3.10 cm Anterior (test code = 0686108054) LV,d (test code = 4.15 cm 0925836542) LV,s (test code = 3.05 cm 3718205187) PV VMAX (test code = 0.78 m/s 8220912910) TR Vpeak (test code = 1.85 mm/s 4749971640) MV E A ratio (test code = 5120728215) TR pk grad (test code = mmHg 9448224604) MR peak grad (test code mmHg = 7906660197) Ao Root Diameter (test 2.99 cm code = 8406691727) LV SYS VOL (test code = 36.41 ml 5037336581) LV RIOS VOL (test code 76.34 ml = 4300974806) LV SV Teich 2D (test 39.93 ml code = 8408463051) LV Vol s Teich PSAX 36.41 ml (test code = 3215232862) MV Vmax (test code = 0.89 m 4614126372) MV VTI Tips (test code 0.22 m = 3299003366) RVOT pk grad (test code mmHg = 1299481780) AoV Vmn (test code = 4167191178) LV FS Cube 2D (test code = 1801840450) LV FS Teich 2D (test code = 2943955298) AoV VTI (test code = 0.22 m 5661496860) LA Area d A4C (test 12.41 cm2 code = 3261730880) LV EF,2D (test code = 60.32 % 5414296766) MR Vmax (test code = 4.15 m/s 5414381228) MV AE ratio (test code = 2857763901) LVOT Vmn (test code = 6726267335) Aov area Vmn (test code 2.47 cm2 = 6704177616) LA Vol d MOD A4C (test 27.63 ml code = 4410053894) LVOT mean grad (test mmHg code = 7507667966) MAX Pred HR (test code = 5230701272) 85 of MPHR (test code = 8981038423) Calc MPHR (test code = bpm 1279316319) LV SV Cube 2D (test 43.08 ml code = 7591580180) LV vol d cube 2D (test 71.42 ml code = 8841913833) LV vol s cube 2D (test 28.34 ml code = 4908470604) MV Decel slope (test 4.12 m/s2 code = 8471642890) Pred Exer Dur R1 (test code = 3712876734) Pred METS R1 (test code = 8724713670) CIRO (test code = CIRO) Left Ventricle: [...] regurgitation. No evidence of aortic valve stenosis. [facility] duplex venous upper flxevfeov6055-47-94 06:14:50 EXAMINATION: US DUPLEX VENOUS UPPER EXTREMITY [...] visualized veins of the right upper extremity. [facility]- [id number] [facility], Radiology Results - 05/08/2020 1:17 AM CDT EXAMINATION: US DUPLEX [...] the visualized veins of the right upper extremity.[facility]-[id number] HospitalEEG (routine)2020-05-07 22:01:23Date of Service: May 07, [...] a diagnosis of epilepsy.MRI Brain W Wo [id number] 03:27:20EXAMINATION: MRI BRAIN W WO CONTRAST CLINICAL [...] or suspicious pericallosal lesions with a perivenular morphology.1M2RAD_PS01[facility] ([facility]OVID-19) RNA [Presence] in Respiratory specimen by SOREN with probe [id number] 12:31:16 Test Item Value Reference Range Interpretation Comments SARS-CoV-2 (COVID-19) RNA Not detected Not-Detected [Presence] in Respiratory specimen by SOREN with probe detection (test code = 06822-5) [facility]) 2020-02-22 21:37:00 Test Item Value Reference Range Interpretation Comments SARS-COV2/RT-PCR (test code = Positive Not Detected, Negative A A 7809323) SARS-COV-2 PERFORMING LAB CPL (test code = 3514100) CT, CHEST, WITHOUT [id number] 00:54:00Reason for exam:->cough, ?covidIs the patient ?->NoWhat [...] MDReport Verified Date/Time: 02/21/2020 00:54:38 PREGNANCY SCREEN, [id number] 00:28:00 Test Item Value Reference Range Interpretation Comments TEST URINE (BEAKER) (test Negative code = 583) CBC W/PLT COUNT & AUTO [id number] 22:46:00 Test Item Value Reference Range Interpretation [...] (BEAKER) (test code = 2801) LACTIC ACID, [id number] 22:30:00 Test Item Value Reference Range Interpretation Comments LACTATE BLOOD VENOUS 1.38 mmol/L 0.50-2.00 Specime n slightly (2) (BEAKER) (test hemolyzed code = 7852) Pig Lead Melter Helper ID - JUSTINBASIC METABOLIC [id number] 22:10:00 Test Item Value Reference Range Interpretation [...] S NOT APPLICABLE FOR DIALYSIS PATIEN TS. Pig Lead Melter Helper ID - [id number] 22:09:00 Test Item Value Reference Range Interpretation [...] failure, acidosis, acute neurological disease, and persistent tachyarrhythmia.Pig Lead Melter Helper ID - youj21LRA, CHEST, 1 VIEW, NON [id number] 20:58:00Reason for exam:->coughIs the patient ?- >NoShould [...] Asencio MDReport Verified Date/Time: 02/20/2020 20:58:56 SARS-COV2/RT-PCR ([facility])2020-02-06 03:25:00 Test Item Value Reference Range Interpretation Comments SARS-COV2/RT-PCR (test code = Positive Not Detected, Negative A A 4516950) SARS-COV-2 PERFORMING LAB CPL (test code = 7982122) URINALYSIS W/ [id number] 08:24:00 Test Item Value Reference Range Interpretation [...] 1663) SOURCE(BEAKER) (test code = 2795) SCREEN, [id number] 08:00:00 Test Item Value Reference Range Interpretation Comments TEST URINE (BEAKER) (test Negative code = 583) RAD, ABDOMEN/KUB 1 VIEW [id number] 07:21:00Reason for exam:->FEVERReason for exam:->DIARRHEAReason for exam:->EMESISFINAL REPORT RAD, ABDOMEN/KUB 1 VIEW AP CLINICAL INDICATION: FEVERDIARRHEAEMESIS COMPARISON: None TECHNIQUE: Single, frontal radiograph of the abdomen. FINDINGS: The bowel gas pattern is nonspecific, but nonobstructive. IUD is present. The regional skeleton is intact. IMPRESSION: Nonspecific, nonobstructive bowel gas pattern. Signed: Ling Jin MDReport Verified Date/Time: 02/04/2020 07:21:42 Reading Location: [facility] Radiology Reading Room COMPREHENSIVE METABOLIC [id number] 07:14:00 Test Item Value Reference Range Interpretation [...] S NOT APPLICABLE FOR DIALYSIS PATIEN TS. Pig Lead Melter Helper ID - [id number] 06:59:00 Test Item Value Reference Range Interpretation Comments LIPASE (BEAKER) (test code = 749) 9 U/L 6-51 Pig Lead Melter Helper ID - AGONZALEZCBC W/PLT COUNT & AUTO [id number] 06:41:00 Test Item Value Reference Range Interpretation [...] (test code = 2801) RAPID INFLUENZA A&B [id number] 19:09:00 Test Item Value Reference Range Interpretation Comments RAPID INFLUENZA A AG (BEAKER) Negative Negative, Inconclusive (test code = 1622) RAPID INFLUENZA B AG (BEAKER) Negative Negative, Inconclusive (test code = 1623) TROPONIN [id number] 18:51:00 Test Item Value Reference Range Interpretation [...] failure, acidosis, acute neurological disease, and persistent tachyarrhythmia.Pig Lead Melter Helper ID - JUSTINPREGNANCY SCREEN, [id number] 18:49:00 Test Item Value Reference Range Interpretation Comments TEST URINE (BEAKER) (test Negative code = 583) URINALYSIS W/ [id number] 18:49:00 Test Item Value Reference Range Interpretation [...] code = 1663) SOURCE(BEAKER) (test code = 5963) BASIC METABOLIC [id number] 18:44:00 Test Item Value Reference Range Interpretation [...] S NOT APPLICABLE FOR DIALYSIS PATIEN TS. Pig Lead Melter Helper ID - GORDON, CHEST, 1 VIEW, NON [id number] 18:41:00Reason for exam:->COUGHReason for exam:->SHORTNESS OF BREATHReason [...] Signed: Vandana Edwards Verified Date/Time: 10/12/2019 18:41:43 Electronically signed by: VANDANA EDWARDS MD on10/12/2019 06:41 PMCBC W/PLT COUNT & AUTO [id number] 18:29:00 Test Item Value Reference Range Interpretation [...] PERCENT (BEAKER) (test code = 2801) CT, [id number] 16:47:00Reason for exam:->FEVERReason for exam:->LEG PAINIs the [...] MDReport Verified Date/Time: 02/15/2019 16:47:32 Reading Location: [address] Reading Room URINALYSIS W/ [id number] 15:41:00 Test Item Value Reference Range Interpretation [...] 1663) SOURCE(BEAKER) (test code = 2795) SCREEN, [id number] 15:29:00 Test Item Value Reference Range Interpretation Comments TEST URINE (BEAKER) (test Negative code = 583) COMPREHENSIVE METABOLIC [id number] 15:26:00 Test Item Value Reference Range Interpretation [...] S NOT APPLICABLE FOR DIALYSIS PATIEN TS. [id number] 15:26:00 Test Item Value Reference Range Interpretation Comments LIPASE (BEAKER) (test code = 749) 20 U/L 6-51 [id number] 15:17:00 Test Item Value Reference Range Interpretation Comments AMYLASE (BEAKER) (test 42 U/L 30-110 Speci men slightly code = 349) hemolyzed CBC W/PLT COUNT & AUTO [id number] 15:03:00 Test Item Value Reference Range Interpretation [...] = 2801) RAD, KNEE, COMPLETE (4 VIEWS), [id number] 23:20:00Reason for exam:->MOTOR VEHICLE CRASHReason for exam:->HIP [...] MDReport Verified Date/Time: 11/19/2018 23:20:49 Reading Location: [facility] B1 C013[facility] Body Reading Room RAD, KNEE, COMPLETE (4 VIEWS), [id number] 23:20:00Reason for exam:- >MOTOR VEHICLE CRASHReason for [...] Friedman Verified Date/Time: 11/19/2018 23:20:49 Reading Location: [address] Body Reading Room RAD, HIP, 2 VIEWS, [id number] 23:06:00Reason for exam:->MOTOR VEHICLE CRASHReason for exam:->HIP PAINReason for exam:->ARM INJURYReason for exam:->SHOULDER INJURYFINAL REPORT Right hip series, 2 views Clinical Indication: Right Hip Pain Impression: No evidence of acute fracture or traumatic malalignment. Note: If occult injury is suspected,consider CT. Signed: Brian Garibay Verified Date/Time: 11/19/2018 23:06:27 Reading Location:[address] Reading Room CT, [id number] 22:44:00Reason for exam:->MOTOR VEHICLE CRASHReason for exam:->HIP [...] Alcantara Verified Date/Time: 11/19/2018 22:44:18 Reading Location: [facility] [address] [place] [address] Reading Room RAD, SHOULDER, COMPLETE (MIN 2 VIEWS), [id number] 22:41:00Reason for exam:->MOTOR VEHICLE CRASHReason for exam:->HIP PAINReason for exam:->ARM INJURYReason for exam:->SHOULDER INJURYFINAL REPORT Right shoulder series - 3 VIEWS Clinical Indication: Right shoulder pain following traumatic injury. Impression: No evidence of acute fracture or traumatic malalignment. Signed: Brian Garibay Verified Date/Time: 11/19/2018 22:41:16 Reading Location: [address] Reading Room URINALYSIS W/ [id number] 21:44:00 Test Item Value Reference Range Interpretation [...] 1663) SOURCE(BEAKER) (test code = 2795) SCREEN, [id number] 21:40:00 Test Item Value Reference Range Interpretation Comments TEST URINE (BEAKER) (test Negative code = 583) URINALYSIS W/ [id number] 21:41:00 Test Item Value Reference Range Interpretation [...] 1663) SOURCE(BEAKER) (test code = 2795) SCREEN, [id number] 21:37:00 Test Item Value Reference Range Interpretation Comments TEST URINE (BEAKER) (test Negative code = 583) RAPID INFLUENZA A&B [id number] 20:49:00 Test Item Value Reference Range Interpretation Comments RAPID INFLUENZA A AG (BEAKER) Negative Negative, Inconclusive (test code = 1622) RAPID INFLUENZA B AG (BEAKER) Negative Negative, Inconclusive (test code = 1623) CT, [id number] 08:31:00Reason for exam:->ABDOMINAL PAINReason for exam:->FEVERReason for [...] in the abdomen and pelvis. Signed: Magy Barkerort Verified Date/Time: 07/31/2017 08:31:14 Reading Location: [facility] Diagnostic Imaging Reading Room - [place] [address] RAD, CHEST, 1 VIEW, NON [id number] 08:23:00Reason for exam:->ABDOMINAL PAINReason for exam:->FEVERReason for exam:->ORAL PAINShould this be performed at the bedside?->YesFINAL REPORT Chest, portable AP view History: Fever, pain Comparison: 03/25/2017 IMPRESSION: The cardiomediastinal silhouette and pulmonary vasculature are within normal limits. The lungs are clear without evidence of consolidation or effusion. There are no acute osseous abnormalities. The soft tissues are unremarkable. Signed: Bladimir Arellano Verified Date/Time: 07/31/2017 08:23:48 Reading Location: [address] Radiology Reading Room [id number] 08:07:00 Test Item Value Reference Range Interpretation Comments LIPASE (BEAKER) (test code = 749) 34 U/L 6-51 URINALYSIS W/ REFLEX URINE [id number] 08:06:00 Test Item Value Reference Range Interpretation [...] SOURCE(BEAKER) (test code = 2795) COMPREHENSIVE METABOLIC [id number] 08:06:00 Test Item Value Reference Range Interpretation [...] S NOT APPLICABLE FOR DIALYSIS PATIEN TS. [id number] 07:58:00 Test Item Value Reference Range Interpretation Comments AMYLASE (BEAKER) (test code = 349) 52 U/L 30-110 SCREEN, [id number] 07:52:00 Test Item Value Reference Range Interpretation Comments TEST URINE (BEAKER) (test Negative code = 583) CBC W/PLT COUNT & AUTO [id number] 07:48:00 Test Item Value Reference Range Interpretation [...] 0.00-0.20 (test code = 417) BASIC METABOLIC [id number] 21:32:00 Test Item Value Reference Range Interpretation [...] DIALYSIS PATIEN TS. LACTIC ACID, VENOUS, WHOLE [id number] 21:19:00 Test Item Value Reference Range Interpretation Comments LACTATE BLOOD VENOUS 0.9 mmol/L 0.5-2.2 Specime n slightly (2) (BEAKER) (test hemolyzed code = 2872) Effective 12/15/2015: Units/Reference Range ChangeNew: 0.5-2.2 mmol/L Previous: 5- 18 mg/dLCBC W/PLT COUNT & AUTO [id number] 21:07:00 Test Item Value Reference Range Interpretation [...] L 0.00-0.20 (test code = 417) SCREEN, [id number] 18:50:00 Test Item Value Reference Range Interpretation Comments TEST URINE (BEAKER) (test Negative code = 583) URINE [id number] 09:20:00 Test Item Value Reference Range Interpretation [...] = 480) CBC W/PLT COUNT & AUTO [id number] 16:52:00 Test Item Value Reference Range Interpretation [...] 0.00-0.20 (test code = 417) COMPREHENSIVE METABOLIC [id number] 16:28:00 Test Item Value Reference Range Interpretation [...] S NOT APPLICABLE FOR DIALYSIS PATIEN TS. [id number] 16:22:00 Test Item Value Reference Range Interpretation Comments LIPASE (BEAKER) (test code = 749) 26 U/L 6-51 URINALYSIS W/ REFLEX URINE [id number] 15:52:00 Test Item Value Reference Range Interpretation [...] 1663) SOURCE(BEAKER) (test code = 2795) SCREEN, [id number] 15:49:00 Test Item Value Reference Range Interpretation Comments TEST URINE (BEAKER) (test Negative code = 583) URINE AND [id number] 08:40:00 Test Item Value Reference Range Interpretation Comments UA Leuk Est (test code Trace *ABN*(02/13/16 3:40 = UA Leuk Est) AM) [facility] AND [id number] 08:40:00 Test Item Value Reference Range Interpretation Comments UA Nitrite (test code Negative (02/13/16 3:40 = UA Nitrite) AM) [facility] AND [id number] 08:40:00 Test Item Value Reference Range Interpretation Comments UA Urobilinogen (test code = UA 0.2 0.1-1.0 Urobilinogen) [facility] AND [id number] 08:40:00 Test Item Value Reference Range Interpretation Comments UA Ketones (test code Negative *NA*(02/13/16 = UA Ketones) 3:40 AM) [facility] AND [id number] 08:40:00 Test Item Value Reference Range Interpretation Comments UA Glucose (test code Negative (02/13/16 3:40 = UA Glucose) AM) [facility] AND [id number] 08:40:00 Test Item Value Reference Range Interpretation Comments UA Blood (test code = Large *ABN*(02/13/16 UA Blood) 3:40 AM) [facility] AND [id number] 08:40:00 Test Item Value Reference Range Interpretation Comments UA Bili (test code = Negative *NA*(02/13/16 UA Bili) 3:40 AM) [facility] AND [id number] 08:40:00 Test Item Value Reference Range Interpretation Comments UA Protein (test code = UA Protein) 30 mg/dL [facility] AND [id number] 08:40:00 Test Item Value Reference Range Interpretation Comments UA Spec Grav (test code = UA Spec 1.015 1 Grav) [facility] AND [id number] 08:40:00 Test Item Value Reference Range Interpretation Comments UA pH (test code = UA pH) 7.0 1 5.0-8.0 [facility] AND [id number] 08:40:00 Test Item Value Reference Range Interpretation Comments UA Color (test code = Red *ABN*(02/13/16 3:40 UA Color) AM) [facility] AND [id number] 08:40:00 Test Item Value Reference Range Interpretation Comments UA Turbidity (test code Bloody *ABN*(02/13/16 = UA Turbidity) 3:40 AM) [facility] AND [id number] 08:40:00 Test Item Value Reference Range Interpretation Comments UA Bacteria (test code = UA Occasional /HPF Bacteria) [facility] AND [id number] 08:40:00 Test Item Value Reference Range Interpretation Comments UA RBC (test Packed See_Comment [Automated mes shirely] code = UA RBC) *ABN*(02/13/16 3:40 The syst em which AM) generated this result transmitted ref erence range: <=2. The reference range was not used to int erpret this result as normal/abnormal . [facility] AND [id number] 08:40:00 Test Item Value Reference Range Interpretation Comments UA WBC (test code = UA WBC) 3-5 /HPF [facility] AND [id number] 08:40:00 Test Item Value Reference Range Interpretation Comments UA Sq Epi (test code = UA Sq Epi) Rare /LPF [facility] AND [id number] 08:40:00 Test Item Value Reference Range Interpretation Comments UA Leuk Est (test code Trace *ABN*(02/13/16 3:40 = UA Leuk Est) AM) [facility] AND [id number] 08:40:00 Test Item Value Reference Range Interpretation Comments UA Nitrite (test code Negative (02/13/16 3:40 = UA Nitrite) AM) [facility] AND [id number] 08:40:00 Test Item Value Reference Range Interpretation Comments UA Urobilinogen (test code = UA 0.2 0.1-1.0 Urobilinogen) [facility] AND [id number] 08:40:00 Test Item Value Reference Range Interpretation Comments UA Ketones (test code Negative *NA*(02/13/16 = UA Ketones) 3:40 AM) [facility] [id number] 08:40:00 Test Item Value Reference Range Interpretation Comments UA Glucose (test code Negative (02/13/16 3:40 = UA Glucose) AM) [facility] AND [id number] 08:40:00 Test Item Value Reference Range Interpretation Comments UA Blood (test code = Large *ABN*(02/13/16 UA Blood) 3:40 AM) [facility] AND [id number] 08:40:00 Test Item Value Reference Range Interpretation Comments UA Bili (test code = Negative *NA*(02/13/16 UA Bili) 3:40 AM) [facility] AND [id number] 08:40:00 Test Item Value Reference Range Interpretation Comments UA Protein (test code = UA Protein) 30 mg/dL [facility] AND [id number] 08:40:00 Test Item Value Reference Range Interpretation Comments UA Spec Grav (test code = UA Spec 1.015 1 Grav) [facility] AND [id number] 08:40:00 Test Item Value Reference Range Interpretation Comments UA pH (test code = UA pH) 7.0 1 5.0-8.0 [facility] AND [id number] 08:40:00 Test Item Value Reference Range Interpretation Comments UA Color (test code = Red *ABN*(02/13/16 3:40 UA Color) AM) [facility] AND [id number] 08:40:00 Test Item Value Reference Range Interpretation Comments UA Turbidity (test code Bloody *ABN*(02/13/16 = UA Turbidity) 3:40 AM) [facility] AND [id number] 08:40:00 Test Item Value Reference Range Interpretation Comments UA Bacteria (test code = UA Occasional /HPF Bacteria) [facility] AND [id number] 08:40:00 Test Item Value Reference Range Interpretation Comments UA RBC (test Packed See_Comment [Automated mes shirley] code = UA RBC) *ABN*(02/13/16 3:40 The syst em which AM) generated this result transmitted ref erence range: <=2. The reference range was not used to int erpret this result as normal/abnormal . [facility] AND [id number] 08:40:00 Test Item Value Reference Range Interpretation Comments UA WBC (test code = UA WBC) 3-5 /HPF [facility] AND [id number] 08:40:00 Test Item Value Reference Range Interpretation Comments UA Sq Epi (test code = UA Sq Epi) Rare /LPF [facility] AND [id number] 08:40:00 Test Item Value Reference Range Interpretation Comments UA Leuk Est (test code Trace *ABN*(02/13/16 3:40 = UA Leuk Est) AM) [facility] AND [id number] 08:40:00 Test Item Value Reference Range Interpretation Comments UA Nitrite (test code Negative (02/13/16 3:40 = UA Nitrite) AM) [facility] AND [id number] 08:40:00 Test Item Value Reference Range Interpretation Comments UA Urobilinogen (test code = UA 0.2 0.1-1.0 Urobilinogen) [facility] AND [id number] 08:40:00 Test Item Value Reference Range Interpretation Comments UA Ketones (test code Negative *NA*(02/13/16 = UA Ketones) 3:40 AM) [facility] AND [id number] 08:40:00 Test Item Value Reference Range Interpretation Comments UA Glucose (test code Negative (02/13/16 3:40 = UA Glucose) AM) [facility] AND [id number] 08:40:00 Test Item Value Reference Range Interpretation Comments UA Blood (test code = Large *ABN*(02/13/16 UA Blood) 3:40 AM) [facility] AND [id number] 08:40:00 Test Item Value Reference Range Interpretation Comments UA Bili (test code = Negative *NA*(02/13/16 UA Bili) 3:40 AM) [facility] AND [id number] 08:40:00 Test Item Value Reference Range Interpretation Comments UA Protein (test code = UA Protein) 30 mg/dL [facility] AND [id number] 08:40:00 Test Item Value Reference Range Interpretation Comments UA Spec Grav (test code = UA Spec 1.015 1 Grav) [facility] AND [id number] 08:40:00 Test Item Value Reference Range Interpretation Comments UA pH (test code = UA pH) 7.0 1 5.0-8.0 [facility] AND [id number] 08:40:00 Test Item Value Reference Range Interpretation Comments UA Color (test code = Red *ABN*(02/13/16 3:40 UA Color) AM) [facility] AND [id number] 08:40:00 Test Item Value Reference Range Interpretation Comments UA Turbidity (test code Bloody *ABN*(02/13/16 = UA Turbidity) 3:40 AM) [facility] AND [id number] 08:40:00 Test Item Value Reference Range Interpretation Comments UA Bacteria (test code = UA Occasional /HPF Bacteria) [facility] AND [id number] 08:40:00 Test Item Value Reference Range Interpretation Comments UA RBC (test Packed See_Comment [Automated mes shirley] code = UA RBC) *ABN*(02/13/16 3:40 The syst em which AM) generated this result transmitted ref erence range: <=2. The reference range was not used to int erpret this result as normal/abnormal . [facility] AND [id number] 08:40:00 Test Item Value Reference Range Interpretation Comments UA WBC (test code = UA WBC) 3-5 /HPF [facility] AND [id number] 08:40:00 Test Item Value Reference Range Interpretation Comments UA Sq Epi (test code = UA Sq Epi) Rare /LPF [facility] AND [id number] 08:40:00 Test Item Value Reference Range Interpretation Comments UA Leuk Est (test code Trace *ABN*(02/13/16 3:40 = UA Leuk Est) AM) [facility] AND [id number] 08:40:00 Test Item Value Reference Range Interpretation Comments UA Nitrite (test code Negative (02/13/16 3:40 = UA Nitrite) AM) [facility] AND [id number] 08:40:00 Test Item Value Reference Range Interpretation Comments UA Urobilinogen (test code = UA 0.2 0.1-1.0 Urobilinogen) [facility] AND [id number] 08:40:00 Test Item Value Reference Range Interpretation Comments UA Ketones (test code Negative *NA*(02/13/16 = UA Ketones) 3:40 AM) [facility] AND [id number] 08:40:00 Test Item Value Reference Range Interpretation Comments UA Glucose (test code Negative (02/13/16 3:40 = UA Glucose) AM) [facility] AND [id number] 08:40:00 Test Item Value Reference Range Interpretation Comments UA Blood (test code = Large *ABN*(02/13/16 UA Blood) 3:40 AM) [facility] AND [id number] 08:40:00 Test Item Value Reference Range Interpretation Comments UA Bili (test code = Negative *NA*(02/13/16 UA Bili) 3:40 AM) [facility] AND [id number] 08:40:00 Test Item Value Reference Range Interpretation Comments UA Protein (test code = UA Protein) 30 mg/dL [facility] AND [id number] 08:40:00 Test Item Value Reference Range Interpretation Comments UA Spec Grav (test code = UA Spec 1.015 1 Grav) [facility] AND [id number] 08:40:00 Test Item Value Reference Range Interpretation Comments UA pH (test code = UA pH) 7.0 1 5.0-8.0 [facility] AND [id number] 08:40:00 Test Item Value Reference Range Interpretation Comments UA Color (test code = Red *ABN*(02/13/16 3:40 UA Color) AM) [facility] AND [id number] 08:40:00 Test Item Value Reference Range Interpretation Comments UA Turbidity (test code Bloody *ABN*(02/13/16 = UA Turbidity) 3:40 AM) [facility] AND [id number] 08:40:00 Test Item Value Reference Range Interpretation Comments UA Bacteria (test code = UA Occasional /HPF Bacteria) [facility] AND [id number] 08:40:00 Test Item Value Reference Range Interpretation Comments UA RBC (test Packed See_Comment [Automated mes shirley] code = UA RBC) *ABN*(02/13/16 3:40 The syst em which AM) generated this result transmitted ref erence range: <=2. The reference range was not used to int erpret this result as normal/abnormal . [facility] AND [id number] 08:40:00 Test Item Value Reference Range Interpretation Comments UA WBC (test code = UA WBC) 3-5 /HPF [facility] AND [id number] 08:40:00 Test Item Value Reference Range Interpretation Comments UA Sq Epi (test code = UA Sq Epi) Rare /[facility]F [id number] 06:[facility]00 Test Item Value Reference Range Interpretation Comments Eosinophils # (test code 0.1 See_Comment [A utomated message] The = Eosinophils #) system whic h generated this result tra nsmitted reference range : <=0.5. The reference r ozzy was not used to int erpret this result as normal/abnormal . [id number] 06:44:00 Test Item Value Reference Range Interpretation Comments Segs-Bands # (test code = Segs-Bands #) 9.3 1.5-8.1 [id number] 06:44:00 Test Item Value Reference Range Interpretation Comments Lymphocytes # (test code = Lymphocytes 2.6 1.0-5.5 #) [id number] 06:44:00 Test Item Value Reference Range Interpretation Comments Basophils # (test code 0.0 See_Comment [Aut omated message] The = Basophils #) system which generated this result tra nsmitted reference range : <=0.2. The reference r ozzy was not used to int erpret this result as normal/abnormal . [id number] 06:44:00 Test Item Value Reference Range Interpretation Comments Microcyte (test code = 1+ *ABN*(02/13/16 1:44 Microcyte) AM) [facility] H[id number] 06:44:00 Test Item Value Reference Range Interpretation Comments Giant Plt (test code Moderate *ABN*(02/13/16 = Giant Plt) 1:44 AM) [facility] H[id number] 06:44:00 Test Item Value Reference Range Interpretation Comments Segs (test code = Segs) 75.2 45.0-75.0 [facility] Ho[id number] 06:44:00 Test Item Value Reference Range Interpretation Comments Hypochrom (test code = 1+ (02/13/16 1:44 AM) Hypochrom) [id number] 06:44:00 Test Item Value Reference Range Interpretation Comments Eosinophils (test code = 0.7 See_Comment [A utomated message] The Eosinophils) system which ge nerated this result tra nsmitted reference range : <=4.0. The reference r ozzy was not used to int erpret this result as normal/abnormal . [facility] HospitalPtvbnjbVDLLUMYCNC9541-03-26 06:44:00 Test Item Value Reference Range Interpretation Comments Lymphocytes (test code = Lymphocytes) 21.3 20.0-40.0 [facility] Hos[id number] 06:44:00 Test Item Value Reference Range Interpretation Comments Monocytes (test code = Monocytes) 2.7 2.0-12.0 [facility] HospitalGsgxwmoURQFKKTJZZ6993-88-31 06:44:00 Test Item Value Reference Range Interpretation Comments MPV (test code = MPV) 9.5 7.4-10.4 [facility] HospitalSzagvhgKCOFDWFCUN7046-66-98 06:44:00 Test Item Value Reference Range Interpretation Comments RDW (test code = RDW) 17.8 11.5-14.5 [facility] Ho[id number] 06:44:00 Test Item Value Reference Range Interpretation Comments MCV (test code = MCV) 73.2 80.0-98.0 [facility] HospitalEdcsjsbNPYARMLPPR0366-63-08 06:44:00 Test Item Value Reference Range Interpretation Comments MCH (test code = MCH) 21.9 pg 27.0-31.0 [facility] Hospit[id number] 06:44:00 Test Item Value Reference Range Interpretation Comments Hct (test code = Hct) 27.2 36.0-48.0 [facility] HospitalAqiefpkFRLLWHNAIE4378-81-28 06:44:00 Test Item Value Reference Range Interpretation Comments MCHC (test code = MCHC) 29.9 32.0-36.0 [facility] HospitalBghhffjHQMWLHRUQC9021-42-90 06:44:00 Test Item Value Reference Range Interpretation Comments Platelet (test code = Platelet) 400 133-450 [facility] HospitalSuxnenlWOANCBLKRL6523-91-67 06:44:00 Test Item Value Reference Range Interpretation Comments WBC (test code = WBC) 12.4 3.7-10.4 [facility] HospitalTzuoibhLXUAQDIDZV6941-22-33 06:44:00 Test Item Value Reference Range Interpretation Comments RBC (test code = RBC) 3.72 4.20-5.40 [facility] HospitalApmzhygACZQYCKZNJ9444-29-42 06:44:00 Test Item Value Reference Range Interpretation Comments Hgb (test code = Hgb) 8.1 12.0-16.0 [facility] [id number] 06:44:00 Test Item Value Reference Range Interpretation Comments PTT (test code = PTT) 27.2 s 22.9-35.8 [facility] [id number] 06:44:00 Test Item Value Reference Range Interpretation Comments PT (test code = PT) 14.7 s 12.0-14.7 [facility] [id number] 06:44:00 Test Item Value Reference Range Interpretation Comments INR (test code = INR) 1.12 0.85-1.17 [facility] [id number] 06:44:00 Test Item Value Reference Range Interpretation Comments Antibody Scrn (test Negative (02/13/16 1:44 code = Antibody Scrn) AM) [facility] [employer] [id number] 06:44:00 Test Item Value Reference Range Interpretation Comments ABO/Rh (test code = ABO/Rh) A POS [facility] [employer]2016-07-03 06:44:00 Test Item Value Reference Range Interpretation Comments CK MB Index (test 1.6 See_Comment [Automate d message] The code = CK MB Index) system w [facility] generated this result transmit gaye reference range : <=2.5. The reference range was not used to interpr et this result as satish l/abnormal. [employer]2016-07-03 06:44:00 Test Item Value Reference Range Interpretation Comments CK MB (test code = CK MB) 0.9 0.5-3.6 [facility] [employer]2016-07-03 06:44:00 Test Item Value Reference Range Interpretation Comments Total CK (test code = Total CK) 57 12-191 [facility] [employer]2016-07-03 06:44:00 Test Item Value Reference Range Interpretation Comments Troponin-I (test code no gt See_Comment [Auto mated message] The = Troponin-I) system which g enerated this result transmit gaye reference range : <=0.40. The reference r ozzy was not used to interpr et this result as satish l/abnormal. [employer] [id number] 06:44:00 Test Item Value Reference Range Interpretation Comments Albumin Lvl (test code = Albumin Lvl) 3.5 3.5-5.0 [place] 316266-07-03 06:44:00 Test Item Value Reference Range Interpretation Comments Total Protein (test code = Total 7.0 6.4-8.4 Protein) [facility]2016-07-03 06:44:00 Test Item Value Reference Range Interpretation Comments ALT (test code = ALT) 19 See_Comment [Auto mated message] The system which ge nerated this result transmit gaye reference range : <=65. The reference range was not used to interpr et this result as satish l/abnormal. [place] 316266-07-03 06:44:00 Test Item Value Reference Range Interpretation Comments AST (test code = AST) 10 See_Comment [Auto mated message] The system which ge nerated this result transmit gaye reference range : <=37. The reference range was not used to interpr et this result as satish l/abnormal. [place] 316266-07-03 06:44:00 Test Item Value Reference Range Interpretation Comments Alk Phos (test code = Alk Phos) 79 39-136 [facility]2016-07-03 06:44:00 Test Item Value Reference Range Interpretation Comments Bili Total (test code = Bili Total) 0.4 0.2-1.3 [place] 316266-07-03 06:44:00 Test Item Value Reference Range Interpretation Comments Bili Direct (test code 0.1 See_Comment [Aut omated message] The = Bili Direct) system which generated this result tra nsmitted reference range : <=0.3. The reference r ozzy was not used to int erpret this result as satish l/abnormal. [facility]2016-07-03 06:44:00 Test Item Value Reference Range Interpretation Comments Globulin (test code = Globulin) 3.5 2.0-4.0 [place] 316266-07-03 06:44:00 Test Item Value Reference Range Interpretation Comments A/G Ratio (test code = A/G Ratio) 1.0 0.7-1.6 [place] 316266-07-03 06:44:00 Test Item Value Reference Range Interpretation Comments Bili Indirect (test 0.3 See_Comment [Automa gaye message] The code = Bili Indirect) system which generated this result tra nsmitted reference range : <=1.0. The reference r ozzy was not used to int erpret this result as normal/abnormal . [facility]2016-07-03 06:44:00 Test Item Value Reference Range Interpretation Comments eGFR (test code = eGFR) 107 [facility]2016-07-03 06:44:00 Test Item Value Reference Range Interpretation Comments BUN (test code = BUN) 8 7-22 [facility]2016-07-03 06:44:00 Test Item Value Reference Range Interpretation Comments Glucose Lvl (test code = Glucose Lvl) 91 70-99 [facility]2016-07-03 06:44:00 Test Item Value Reference Range Interpretation Comments Sodium Lvl (test code = Sodium Lvl) 138 135-145 [facility]2016-07-03 06:44:00 Test Item Value Reference Range Interpretation Comments Creatinine Lvl (test code = Creatinine 0.70 0.50-1.40 Lvl) [facility]2016-07-03 06:44:00 Test Item Value Reference Range Interpretation Comments Potassium Lvl (test code = Potassium 3.3 3.5-5.1 Lvl) [facility]2016-07-03 06:44:00 Test Item Value Reference Range Interpretation Comments CO2 (test code = CO2) 25 24-32 [facility]2016-07-03 06:44:00 Test Item Value Reference Range Interpretation Comments Chloride Lvl (test code = Chloride Lvl) 106 95-109 [facility]2016-07-03 06:44:00 Test Item Value Reference Range Interpretation Comments Calcium Lvl (test code = Calcium Lvl) 8.1 8.5-10.5 [facility]2016-07-03 06:44:00 Test Item Value Reference Range Interpretation Comments AGAP (test code = AGAP) 10.3 10.0-20.0 [facility]2016-07-03 06:44:00 Test Item Value Reference Range Interpretation Comments Magnesium Lvl (test code = Magnesium 2.2 1.8-2.4 Lvl) [facility]HEZQBN0812-15-46 06:44:00 Test Item Value Reference Range Interpretation Comments S Preg (test code = S Negative *NA*(02/13/16 Preg) 1:44 AM) [employer]HicainuOYUZWGAMTM9643-16-23 06:44:00 Test Item Value Reference Range Interpretation Comments Basophils (test code = 0.1 See_Comment [Aut omated message] The Basophils) system which ge nerated this result tra nsmitted reference range : <=1.0. The reference r ozzy was not used to int erpret this result as normal/abnormal . [employer] SolutionsJsjbatzLEOABGJEAO4465-97-95 06:44:00 Test Item Value Reference Range Interpretation Comments Monocytes # (test code 0.3 See_Comment [Aut omated message] The = Monocytes #) system which generated this result tra nsmitted reference range : <=0.8. The reference r ozzy was not used to int erpret this result as normal/abnormal . [facility] [id number] 06:44:00 Test Item Value Reference Range Interpretation Comments Antibody Scrn (test Negative (02/13/16 1:44 code = Antibody Scrn) AM) [facility] [employer] [id number] 06:44:00 Test Item Value Reference Range Interpretation Comments ABO/Rh (test code = ABO/Rh) A POS [facility] [employer]2016-07-03 06:44:00 Test Item Value Reference Range Interpretation Comments CK MB Index (test 1.6 See_Comment [Automate d message] The code = CK MB Index) system w [facility] generated this result transmit gaye reference range : <=2.5. The reference range was not used to interpr et this result as satish l/abnormal. [employer]2016-07-03 06:44:00 Test Item Value Reference Range Interpretation Comments CK MB (test code = CK MB) 0.9 0.5-3.6 [facility] [employer]2016-07-03 06:44:00 Test Item Value Reference Range Interpretation Comments Total CK (test code = Total CK) 57 12-191 [facility] [employer]2016-07-03 06:44:00 Test Item Value Reference Range Interpretation Comments Troponin-I (test code no gt See_Comment [Auto mated message] The = Troponin-I) system which g enerated this result transmit gaye reference range : <=0.40. The reference r ozzy was not used to interpr et this result as satish l/abnormal. [place] 316266-07-03 06:44:00 Test Item Value Reference Range Interpretation Comments Albumin Lvl (test code = Albumin Lvl) 3.5 3.5-5.0 [place] 316266-07-03 06:44:00 Test Item Value Reference Range Interpretation Comments Total Protein (test code = Total 7.0 6.4-8.4 Protein) [place] 316266-07-03 06:44:00 Test Item Value Reference Range Interpretation Comments ALT (test code = ALT) 19 See_Comment [Auto mated message] The system which ge nerated this result transmit gaye reference range : <=65. The reference range was not used to interpr et this result as satish l/abnormal. [place] 316266-07-03 06:44:00 Test Item Value Reference Range Interpretation Comments AST (test code = AST) 10 See_Comment [Auto mated message] The system which ge nerated this result transmit gaye reference range : <=37. The reference range was not used to interpr et this result as satish l/abnormal. [facility]2016-07-03 06:44:00 Test Item Value Reference Range Interpretation Comments Alk Phos (test code = Alk Phos) 79 39-136 [facility]2016-07-03 06:44:00 Test Item Value Reference Range Interpretation Comments Bili Total (test code = Bili Total) 0.4 0.2-1.3 [facility]2016-07-03 06:44:00 Test Item Value Reference Range Interpretation Comments Bili Direct (test code 0.1 See_Comment [Aut omated message] The = Bili Direct) system which generated this result tra nsmitted reference range : <=0.3. The reference r ozzy was not used to int erpret this result as satish l/abnormal. [facility]2016-07-03 06:44:00 Test Item Value Reference Range Interpretation Comments Globulin (test code = Globulin) 3.5 2.0-4.0 [facility]2016-07-03 06:44:00 Test Item Value Reference Range Interpretation Comments A/G Ratio (test code = A/G Ratio) 1.0 0.7-1.6 [facility]2016-07-03 06:44:00 Test Item Value Reference Range Interpretation Comments Bili Indirect (test 0.3 See_Comment [Automa gaye message] The code = Bili Indirect) system which generated this result tra nsmitted reference range : <=1.0. The reference r ozzy was not used to int erpret this result as normal/abnormal . [facility]2016-07-03 06:44:00 Test Item Value Reference Range Interpretation Comments eGFR (test code = eGFR) 107 [place] 316266-07-03 06:44:00 Test Item Value Reference Range Interpretation Comments BUN (test code = BUN) 8 7-22 [facility]2016-07-03 06:44:00 Test Item Value Reference Range Interpretation Comments Glucose Lvl (test code = Glucose Lvl) 91 70-99 [facility]2016-07-03 06:44:00 Test Item Value Reference Range Interpretation Comments Sodium Lvl (test code = Sodium Lvl) 138 135-145 [facility]2016-07-03 06:44:00 Test Item Value Reference Range Interpretation Comments Creatinine Lvl (test code = Creatinine 0.70 0.50-1.40 Lvl) [facility]2016-07-03 06:44:00 Test Item Value Reference Range Interpretation Comments Potassium Lvl (test code = Potassium 3.3 3.5-5.1 Lvl) [facility]2016-07-03 06:44:00 Test Item Value Reference Range Interpretation Comments CO2 (test code = CO2) 25 24-32 [facility]2016-07-03 06:44:00 Test Item Value Reference Range Interpretation Comments Chloride Lvl (test code = Chloride Lvl) 106 95-109 [facility]2016-07-03 06:44:00 Test Item Value Reference Range Interpretation Comments Calcium Lvl (test code = Calcium Lvl) 8.1 8.5-10.5 [place] 316266-07-03 06:44:00 Test Item Value Reference Range Interpretation Comments AGAP (test code = AGAP) 10.3 10.0-20.0 [facility]2016-07-03 06:44:00 Test Item Value Reference Range Interpretation Comments Magnesium Lvl (test code = Magnesium 2.2 1.8-2.4 Lvl) [place] 40525016-07-03 06:44:00 Test Item Value Reference Range Interpretation Comments S Preg (test code = S Negative *NA*(02/13/16 Preg) 1:44 AM) [id number] 06:44:00 Test Item Value Reference Range Interpretation Comments Basophils (test code = 0.1 See_Comment [Aut omated message] The Basophils) system which ge nerated this result tra nsmitted reference range : <=1.0. The reference r ozzy was not used to int erpret this result as normal/abnormal . [facility]GkoijpgFJOFDILTSF8332-47-96 06:44:00 Test Item Value Reference Range Interpretation Comments Monocytes # (test code 0.3 See_Comment [Aut omated message] The = Monocytes #) system which generated this result tra nsmitted reference range : <=0.8. The reference r ozzy was not used to int erpret this result as normal/abnormal . [facility]VjrgmrhGFNKTSUHEJ9591-03-67 06:44:00 Test Item Value Reference Range Interpretation Comments Eosinophils # (test code 0.1 See_Comment [A utomated message] The = Eosinophils #) system whic h generated this result tra nsmitted reference range : <=0.5. The reference r ozzy was not used to int erpret this result as normal/abnormal . [facility] HospitalQsinmslAXWHXNZZVT5960-41-47 06:44:00 Test Item Value Reference Range Interpretation Comments Segs-Bands # (test code = Segs-Bands #) 9.3 1.5-8.1 [facility] HospitalRaofctuGSVGLVUBCR2371-64-50 06:44:00 Test Item Value Reference Range Interpretation Comments Lymphocytes # (test code = Lymphocytes 2.6 1.0-5.5 #) [facility] HospitalIwallntCOKMZUVAVI7899-68-84 06:44:00 Test Item Value Reference Range Interpretation Comments Basophils # (test code 0.0 See_Comment [Aut omated message] The = Basophils #) system which generated this result tra nsmitted reference range : <=0.2. The reference r ozzy was not used to int erpret this result as normal/abnormal . [facility] HospitalLusydwmLRHVLJPNQM0845-68-64 06:44:00 Test Item Value Reference Range Interpretation Comments Microcyte (test code = 1+ *ABN*(02/13/16 1:44 Microcyte) AM) [facility] HospitalWcdxuqmKBJOXVQXIF4512-08-37 06:44:00 Test Item Value Reference Range Interpretation Comments Giant Plt (test code Moderate *ABN*(02/13/16 = Giant Plt) 1:44 AM) [facility] HospitalEvnmguvBSUAFJCZES6279-98-01 06:44:00 Test Item Value Reference Range Interpretation Comments Segs (test code = Segs) 75.2 45.0-75.0 [facility] HospitalIwrdkxqCLMCZHOLIK0718-57-02 06:44:00 Test Item Value Reference Range Interpretation Comments Hypochrom (test code = 1+ (02/13/16 1:44 AM) Hypochrom) [facility] HospitalRhcvzxpHIRZKVUEOY6757-83-28 06:44:00 Test Item Value Reference Range Interpretation Comments Eosinophils (test code = 0.7 See_Comment [A utomated message] The Eosinophils) system which ge nerated this result tra nsmitted reference range : <=4.0. The reference r ozzy was not used to int erpret this result as normal/abnormal . [facility] HospitalYkyhdqoNFDMGHXMFT4372-86-84 06:44:00 Test Item Value Reference Range Interpretation Comments Lymphocytes (test code = Lymphocytes) 21.3 20.0-40.0 [facility] HospitalBxrqqmxPFYANQDWLS7060-65-69 06:44:00 Test Item Value Reference Range Interpretation Comments Monocytes (test code = Monocytes) 2.7 2.0-12.0 [facility] HospitalDwahspjPHCRGGQDIM7397-81-55 06:44:00 Test Item Value Reference Range Interpretation Comments MPV (test code = MPV) 9.5 7.4-10.4 [facility] HospitalAyuxlphDSGACBQWSF7272-94-12 06:44:00 Test Item Value Reference Range Interpretation Comments RDW (test code = RDW) 17.8 11.5-14.5 [facility] HospitalDpcuohhBSKAGZEWZH5189-65-37 06:44:00 Test Item Value Reference Range Interpretation Comments MCV (test code = MCV) 73.2 80.0-98.0 [facility] HospitalSlqublzWZVPJDHIVD0411-32-22 06:44:00 Test Item Value Reference Range Interpretation Comments MCH (test code = MCH) 21.9 pg 27.0-31.0 [facility]SrdiqsrBBIIJOBLYJ0690-72-16 06:44:00 Test Item Value Reference Range Interpretation Comments Hct (test code = Hct) 27.2 36.0-48.0 [facility]MtlscncIFOWAQSPCO0885-95-51 06:44:00 Test Item Value Reference Range Interpretation Comments MCHC (test code = MCHC) 29.9 32.0-36.0 [facility] HospitalUrjeyssROEKBCXFUB9108-86-07 06:44:00 Test Item Value Reference Range Interpretation Comments Platelet (test code = Platelet) 400 133-450 [facility] FgmkitwQCERGSUCBB8681-12-82 06:44:00 Test Item Value Reference Range Interpretation Comments WBC (test code = WBC) 12.4 3.7-10.4 [facility] HospitalDxyzkxmWEWWQMWUTF2119-02-28 06:44:00 Test Item Value Reference Range Interpretation Comments RBC (test code = RBC) 3.72 4.20-5.40 [facility] HospitalZipfeggBAXQQBDCXV5993-35-88 06:44:00 Test Item Value Reference Range Interpretation Comments Hgb (test code = Hgb) 8.1 12.0-16.0 [facility] HospitalQtnigqsEGDNQPIZZW8580-20-01 06:44:00 Test Item Value Reference Range Interpretation Comments PTT (test code = PTT) 27.2 s 22.9-35.8 [facility] HospitalAposggwWJYNNCVBEJ5858-09-80 06:44:00 Test Item Value Reference Range Interpretation Comments PT (test code = PT) 14.7 s 12.0-14.7 [facility] HospitalZuceyqgJGWFYRFMJO4560-93-28 06:44:00 Test Item Value Reference Range Interpretation Comments INR (test code = INR) 1.12 0.85-1.17 [facility] [employer] [id number] 06:44:00 Test Item Value Reference Range Interpretation Comments Antibody Scrn (test Negative (02/13/16 1:44 code = Antibody Scrn) AM) [facility] [employer] [id number] 06:44:00 Test Item Value Reference Range Interpretation Comments ABO/Rh (test code = ABO/Rh) A POS [facility] HabetannCARDIAC [id number] 06:44:00 Test Item Value Reference Range Interpretation Comments CK MB Index (test 1.6 See_Comment [Automate d message] The code = CK MB Index) system [facility] generated this result transmit gaye reference range : <=2.5. The reference range was not used to interpr et this result as satish l/abnormal. [facility] [employer] [id number] 06:44:00 Test Item Value Reference Range Interpretation Comments CK MB (test code = CK MB) 0.9 0.5-3.6 [facility] [id number] 06:44:00 Test Item Value Reference Range Interpretation Comments Total CK (test code = Total CK) 57 12-191 [facility] [id number] 06:44:00 Test Item Value Reference Range Interpretation Comments Troponin-I (test code no gt See_Comment [Auto mated message] The = Troponin-I) system which g enerated this result transmit gaye reference range : <=0.40. The reference r ozzy was not used to interpr et this result as satish l/abnormal. [facility] [employer]2016-07-03 06:44:00 Test Item Value Reference Range Interpretation Comments Albumin Lvl (test code = Albumin Lvl) 3.5 3.5-5.0 [facility] [employer]2016-07-03 06:44:00 Test Item Value Reference Range Interpretation Comments Total Protein (test code = Total 7.0 6.4-8.4 Protein) [facility] [employer]2016-07-03 06:44:00 Test Item Value Reference Range Interpretation Comments ALT (test code = ALT) 19 See_Comment [Auto mated message] The system which ge nerated this result transmit gaye reference range : <=65. The reference range was not used to interpr et this result as satish l/abnormal. [facility] [employer]2016-07-03 06:44:00 Test Item Value Reference Range Interpretation Comments AST (test code = AST) 10 See_Comment [Auto mated message] The system which ge nerated this result transmit gaye reference range : <=37. The reference range was not used to interpr et this result as satish l/abnormal. [facility] [employer]2016-07-03 06:44:00 Test Item Value Reference Range Interpretation Comments Alk Phos (test code = Alk Phos) 79 39-136 [facility] [employer] [id number] 06:44:00 Test Item Value Reference Range Interpretation Comments Bili Total (test code = Bili Total) 0.4 0.2-1.3 [facility]2016-07-03 06:44:00 Test Item Value Reference Range Interpretation Comments Bili Direct (test code 0.1 See_Comment [Aut omated message] The = Bili Direct) system which generated this result tra nsmitted reference range : <=0.3. The reference r ozzy was not used to int erpret this result as satish l/abnormal. [facility]2016-07-03 06:44:00 Test Item Value Reference Range Interpretation Comments Globulin (test code = Globulin) 3.5 2.0-4.0 [facility]2016-07-03 06:44:00 Test Item Value Reference Range Interpretation Comments A/G Ratio (test code = A/G Ratio) 1.0 0.7-1.6 [place] [id number] 06:44:00 Test Item Value Reference Range Interpretation Comments Bili Indirect (test 0.3 See_Comment [Automa gaye message] The code = Bili Indirect) system which generated this result tra nsmitted reference range : <=1.0. The reference r ozzy was not used to int erpret this result as normal/abnormal . [facility]2016-07-03 06:44:00 Test Item Value Reference Range Interpretation Comments eGFR (test code = eGFR) 107 [facility]2016-07-03 06:44:00 Test Item Value Reference Range Interpretation Comments BUN (test code = BUN) 8 7-22 [facility]2016-07-03 06:44:00 Test Item Value Reference Range Interpretation Comments Glucose Lvl (test code = Glucose Lvl) 91 70-99 [facility]2016-07-03 06:44:00 Test Item Value Reference Range Interpretation Comments Sodium Lvl (test code = Sodium Lvl) 138 135-145 [facility]2016-07-03 06:44:00 Test Item Value Reference Range Interpretation Comments Creatinine Lvl (test code = Creatinine 0.70 0.50-1.40 Lvl) [facility]2016-07-03 06:44:00 Test Item Value Reference Range Interpretation Comments Potassium Lvl (test code = Potassium 3.3 3.5-5.1 Lvl) [facility]2016-07-03 06:44:00 Test Item Value Reference Range Interpretation Comments CO2 (test code = CO2) 25 24-32 [facility]2016-07-03 06:44:00 Test Item Value Reference Range Interpretation Comments Chloride Lvl (test code = Chloride Lvl) 106 95-109 [facility]2016-07-03 06:44:00 Test Item Value Reference Range Interpretation Comments Calcium Lvl (test code = Calcium Lvl) 8.1 8.5-10.5 [facility]2016-07-03 06:44:00 Test Item Value Reference Range Interpretation Comments AGAP (test code = AGAP) 10.3 10.0-20.0 [facility]2016-07-03 06:44:00 Test Item Value Reference Range Interpretation Comments Magnesium Lvl (test code = Magnesium 2.2 1.8-2.4 Lvl) [place] [id number] 06:44:00 Test Item Value Reference Range Interpretation Comments S Preg (test code = S Negative *NA*(02/13/16 Preg) 1:44 AM) [facility] HospitalCnxjzovBOMHRLJYTL8568-95-15 06:44:00 Test Item Value Reference Range Interpretation Comments Basophils (test code = 0.1 See_Comment [Aut omated message] The Basophils) system which ge nerated this result tra nsmitted reference range : <=1.0. The reference r ozzy was not used to int erpret this result as normal/abnormal . [facility] HospitalHtwxlehMNRCJVEOQV7065-98-05 06:44:00 Test Item Value Reference Range Interpretation Comments Monocytes # (test code 0.3 See_Comment [Aut omated message] The = Monocytes #) system which generated this result tra nsmitted reference range : <=0.8. The reference r ozzy was not used to int erpret this result as normal/abnormal . [facility] HospitalHjirgztZAHHYOJPRH7301-11-94 06:44:00 Test Item Value Reference Range Interpretation Comments Eosinophils # (test code 0.1 See_Comment [A utomated message] The = Eosinophils #) system whic h generated this result tra nsmitted reference range : <=0.5. The reference r ozzy was not used to int erpret this result as normal/abnormal . [facility] HospitalNoirwcdFDTBVLBMLE9689-40-69 06:44:00 Test Item Value Reference Range Interpretation Comments Segs-Bands # (test code = Segs-Bands #) 9.3 1.5-8.1 [facility] HospitalDoxupugHKXGOECYNG6782-00-83 06:44:00 Test Item Value Reference Range Interpretation Comments Lymphocytes # (test code = Lymphocytes 2.6 1.0-5.5 #) [facility] HospitalXpeqmuzNAOSGBHIPZ5554-79-62 06:44:00 Test Item Value Reference Range Interpretation Comments Basophils # (test code 0.0 See_Comment [Aut omated message] The = Basophils #) system which generated this result tra nsmitted reference range : <=0.2. The reference r ozzy was not used to int erpret this result as normal/abnormal . [facility] HospitalWuntlrpMSWYAQZNUJ2191-37-46 06:44:00 Test Item Value Reference Range Interpretation Comments Microcyte (test code = 1+ *ABN*(02/13/16 1:44 Microcyte) AM) [facility] HospitalMvypsnyULEBXDLQQK0502-02-05 06:44:00 Test Item Value Reference Range Interpretation Comments Giant Plt (test code Moderate *ABN*(02/13/16 = Giant Plt) 1:44 AM) [facility] HospitalWcbrurpPZPPPXLMSK0744-97-76 06:44:00 Test Item Value Reference Range Interpretation Comments Segs (test code = Segs) 75.2 45.0-75.0 [facility] HospitalHmbnfwvMCOBPPGFZL1330-62-12 06:44:00 Test Item Value Reference Range Interpretation Comments Hypochrom (test code = 1+ (02/13/16 1:44 AM) Hypochrom) [facility] HospitalSuaopcxAHILVELDIA0216-84-22 06:44:00 Test Item Value Reference Range Interpretation Comments Eosinophils (test code = 0.7 See_Comment [A utomated message] The Eosinophils) system which ge nerated this result tra nsmitted reference range : <=4.0. The reference r ozzy was not used to int erpret this result as normal/abnormal . [facility] HospitalErhpgxiYYSQBLTJRW3248-92-42 06:44:00 Test Item Value Reference Range Interpretation Comments Lymphocytes (test code = Lymphocytes) 21.3 20.0-40.0 [facility] HospitalHoxhqmhPOYTLXGZKB4873-30-24 06:44:00 Test Item Value Reference Range Interpretation Comments Monocytes (test code = Monocytes) 2.7 2.0-12.0 [facility] HospitalNqrdmiiMHGQQHBNRS0184-08-98 06:44:00 Test Item Value Reference Range Interpretation Comments MPV (test code = MPV) 9.5 7.4-10.4 [facility] HospitalCruqvukQXCLIDWEPH2600-34-09 06:44:00 Test Item Value Reference Range Interpretation Comments RDW (test code = RDW) 17.8 11.5-14.5 [facility] HospitalSbmnaxmGWKECGTXNG6369-39-22 06:44:00 Test Item Value Reference Range Interpretation Comments MCV (test code = MCV) 73.2 80.0-98.0 [facility] HospitalErdmxvaOQHFHDNPXR7120-13-81 06:44:00 Test Item Value Reference Range Interpretation Comments MCH (test code = MCH) 21.9 pg 27.0-31.0 [facility] HospitalJcyurasULWIJKQLDT3509-52-53 06:44:00 Test Item Value Reference Range Interpretation Comments Hct (test code = Hct) 27.2 36.0-48.0 [facility] HospitalRwjqlqgUCDQFPWDBH3410-32-29 06:44:00 Test Item Value Reference Range Interpretation Comments MCHC (test code = MCHC) 29.9 32.0-36.0 [facility] HospitalJomzhusNSFWDVCJGV6546-10-86 06:44:00 Test Item Value Reference Range Interpretation Comments Platelet (test code = Platelet) 400 133-450 [facility] HospitalVftaimlYGQATPTARC0164-49-42 06:44:00 Test Item Value Reference Range Interpretation Comments WBC (test code = WBC) 12.4 3.7-10.4 [facility] HospitalIxdnmfgSFVDTUAWKM1855-72-20 06:44:00 Test Item Value Reference Range Interpretation Comments RBC (test code = RBC) 3.72 4.20-5.40 [facility] HospitalLfsgtdlYRLUCTDCXX7848-18-11 06:44:00 Test Item Value Reference Range Interpretation Comments Hgb (test code = Hgb) 8.1 12.0-16.0 [facility] HospitalJmfhqxuSLJJJMHDKV9214-29-45 06:44:00 Test Item Value Reference Range Interpretation Comments PTT (test code = PTT) 27.2 s 22.9-35.8 [facility] HospitalQhnajfkOTTPIAGVDN0686-29-62 06:44:00 Test Item Value Reference Range Interpretation Comments PT (test code = PT) 14.7 s 12.0-14.7 [facility] HospitalFkxkznjFTPBUPVPET3766-50-18 06:44:00 Test Item Value Reference Range Interpretation Comments INR (test code = INR) 1.12 0.85-1.17 [facility] [employer] [id number] 06:44:00 Test Item Value Reference Range Interpretation Comments Antibody Scrn (test Negative (02/13/16 1:44 code = Antibody Scrn) AM) [facility] [employer] [id number] 06:44:00 Test Item Value Reference Range Interpretation Comments ABO/Rh (test code = ABO/Rh) A POS [facility] [employer] LJDVIPJ7105-91-56 06:44:00 Test Item Value Reference Range Interpretation Comments CK MB Index (test 1.6 See_Comment [Automate d message] The code = CK MB Index) system w [facility] generated this result transmit gaye reference range : <=2.5. The reference range was not used to interpr et this result as satish l/abnormal. [facility] [employer]2016-07-03 06:44:00 Test Item Value Reference Range Interpretation Comments CK MB (test code = CK MB) 0.9 0.5-3.6 [facility] [employer] [id number] 06:44:00 Test Item Value Reference Range Interpretation Comments Total CK (test code = Total CK) 57 12-191 [facility] [employer]2016-07-03 06:44:00 Test Item Value Reference Range Interpretation Comments Troponin-I (test code no gt See_Comment [Auto mated message] The = Troponin-I) system which g enerated this result transmit gaye reference range : <=0.40. The reference r ozzy was not used to interpr et this result as satish l/abnormal. [employer] [id number] 06:44:00 Test Item Value Reference Range Interpretation Comments Albumin Lvl (test code = Albumin Lvl) 3.5 3.5-5.0 [facility] [employer] [id number] 06:44:00 Test Item Value Reference Range Interpretation Comments Total Protein (test code = Total 7.0 6.4-8.4 Protein) [employer] [id number] 06:44:00 Test Item Value Reference Range Interpretation Comments ALT (test code = ALT) 19 See_Comment [Auto mated message] The system which ge nerated this result transmit gaye reference range : <=65. The reference range was not used to interpr et this result as satish l/abnormal. [facility] [id number] 06:44:00 Test Item Value Reference Range Interpretation Comments AST (test code = AST) 10 See_Comment [Auto mated message] The system which ge nerated this result transmit gaye reference range : <=37. The reference range was not used to interpr et this result as satish l/abnormal. [facility] [id number] 06:44:00 Test Item Value Reference Range Interpretation Comments Alk Phos (test code = Alk Phos) 79 39-136 [facility] [id number] 06:44:00 Test Item Value Reference Range Interpretation Comments Bili Total (test code = Bili Total) 0.4 0.2-1.3 [place] 316266-07-03 06:44:00 Test Item Value Reference Range Interpretation Comments Bili Direct (test code 0.1 See_Comment [Aut omated message] The = Bili Direct) system which generated this result tra nsmitted reference range : <=0.3. The reference r ozzy was not used to int erpret this result as satish l/abnormal. [facility] [id number] 06:44:00 Test Item Value Reference Range Interpretation Comments Globulin (test code = Globulin) 3.5 2.0-4.0 [facility] [id number] 06:44:00 Test Item Value Reference Range Interpretation Comments A/G Ratio (test code = A/G Ratio) 1.0 0.7-1.6 [place] 316266-07-03 06:44:00 Test Item Value Reference Range Interpretation Comments Bili Indirect (test 0.3 See_Comment [Automa gaye message] The code = Bili Indirect) system which generated this result tra nsmitted reference range : <=1.0. The reference r ozzy was not used to int erpret this result as normal/abnormal . [facility] [id number] 06:44:00 Test Item Value Reference Range Interpretation Comments eGFR (test code = eGFR) 107 [facility] [id number] 06:44:00 Test Item Value Reference Range Interpretation Comments BUN (test code = BUN) 8 7-22 [facility]2016-07-03 06:44:00 Test Item Value Reference Range Interpretation Comments Glucose Lvl (test code = Glucose Lvl) 91 70-99 [facility]2016-07-03 06:44:00 Test Item Value Reference Range Interpretation Comments Sodium Lvl (test code = Sodium Lvl) 138 135-145 [facility]2016-07-03 06:44:00 Test Item Value Reference Range Interpretation Comments Creatinine Lvl (test code = Creatinine 0.70 0.50-1.40 Lvl) [facility]2016-07-03 06:44:00 Test Item Value Reference Range Interpretation Comments Potassium Lvl (test code = Potassium 3.3 3.5-5.1 Lvl) [facility]2016-07-03 06:44:00 Test Item Value Reference Range Interpretation Comments CO2 (test code = CO2) 25 24-32 [facility]2016-07-03 06:44:00 Test Item Value Reference Range Interpretation Comments Chloride Lvl (test code = Chloride Lvl) 106 95-109 [facility]2016-07-03 06:44:00 Test Item Value Reference Range Interpretation Comments Calcium Lvl (test code = Calcium Lvl) 8.1 8.5-10.5 [facility]2016-07-03 06:44:00 Test Item Value Reference Range Interpretation Comments AGAP (test code = AGAP) 10.3 10.0-20.0 [facility]2016-07-03 06:44:00 Test Item Value Reference Range Interpretation Comments Magnesium Lvl (test code = Magnesium 2.2 1.8-2.4 Lvl) [facility]QQTPSMDKTZMKQ2434-[facility]-78 06:44:00 Test Item Value Reference Range Interpretation Comments S Preg (test code = S Negative *NA*(02/13/16 Preg) 1:44 AM) [facility] HospitalNajamaaQMUROXRMJD3798-42-23 06:44:00 Test Item Value Reference Range Interpretation Comments Basophils (test code = 0.1 See_Comment [Aut omated message] The Basophils) system which ge nerated this result tra nsmitted reference range : <=1.0. The reference r ozzy was not used to int erpret this result as normal/abnormal . [facility] HospitalExaqptyWGUCPJPKMO3237-29-53 06:44:00 Test Item Value Reference Range Interpretation Comments Monocytes # (test code 0.3 See_Comment [Aut omated message] The = Monocytes #) system which generated this result tra nsmitted reference range : <=0.8. The reference r ozzy was not used to int erpret this result as normal/abnormal . [facility] HospitalAlxwfdoFQJJZTRSSB3951-27-34 06:44:00 Test Item Value Reference Range Interpretation Comments Eosinophils # (test code 0.1 See_Comment [A utomated message] The = Eosinophils #) system whic h generated this result tra nsmitted reference range : <=0.5. The reference r ozzy was not used to int erpret this result as normal/abnormal . [facility] HospitalAkhpzulWIVUZTOBSC5103-11-85 06:44:00 Test Item Value Reference Range Interpretation Comments Segs-Bands # (test code = Segs-Bands #) 9.3 1.5-8.1 [facility] HospitalZttvuhwQWCPEAJAYX8025-21-13 06:44:00 Test Item Value Reference Range Interpretation Comments Lymphocytes # (test code = Lymphocytes 2.6 1.0-5.5 #) [facility] HospitalQgoawobKSSXQQLFSL5383-61-31 06:44:00 Test Item Value Reference Range Interpretation Comments Basophils # (test code 0.0 See_Comment [Aut omated message] The = Basophils #) system which generated this result tra nsmitted reference range : <=0.2. The reference r ozzy was not used to int erpret this result as normal/abnormal . [facility] HospitalQlqskovWYGOLKBVJW0356-70-65 06:44:00 Test Item Value Reference Range Interpretation Comments Microcyte (test code = 1+ *ABN*(02/13/16 1:44 Microcyte) AM) [facility] HospitalRszylquYSMSIQUTDV7291-31-51 06:44:00 Test Item Value Reference Range Interpretation Comments Giant Plt (test code Moderate *ABN*(02/13/16 = Giant Plt) 1:44 AM) [facility] HospitalEbergenKYVFTGNCIU3337-33-36 06:44:00 Test Item Value Reference Range Interpretation Comments Segs (test code = Segs) 75.2 45.0-75.0 [facility] HospitalEhbnnhzEADVHHRDSB7838-33-97 06:44:00 Test Item Value Reference Range Interpretation Comments Hypochrom (test code = 1+ (02/13/16 1:44 AM) Hypochrom) [facility] HospitalQtejitfJBFWSPJYEQ9011-09-89 06:44:00 Test Item Value Reference Range Interpretation Comments Eosinophils (test code = 0.7 See_Comment [A utomated message] The Eosinophils) system which ge nerated this result tra nsmitted reference range : <=4.0. The reference r ozzy was not used to int erpret this result as normal/abnormal . [facility]RetbfehYGPTLYGLZD1494-52-46 06:44:00 Test Item Value Reference Range Interpretation Comments Lymphocytes (test code = Lymphocytes) 21.3 20.0-40.0 [facility] HospitalGthkuskOOKBROMTWE7733-94-18 06:44:00 Test Item Value Reference Range Interpretation Comments Monocytes (test code = Monocytes) 2.7 2.0-12.0 [facility] HospitalFilpzlbAEGEZBVCON3167-00-16 06:44:00 Test Item Value Reference Range Interpretation Comments MPV (test code = MPV) 9.5 7.4-10.4 [facility] HospitalCqhyfxrMSRQDVINWW3092-48-65 06:44:00 Test Item Value Reference Range Interpretation Comments RDW (test code = RDW) 17.8 11.5-14.5 [facility] HospitalCljwbzkDTELFFVWXE1671-82-55 06:44:00 Test Item Value Reference Range Interpretation Comments MCV (test code = MCV) 73.2 80.0-98.0 [facility] HospitalBxniqvlSBAQEXPJJD6692-40-79 06:44:00 Test Item Value Reference Range Interpretation Comments MCH (test code = MCH) 21.9 pg 27.0-31.0 [facility] HospitalXfhfkewMBYZQHQHVN7749-81-61 06:44:00 Test Item Value Reference Range Interpretation Comments Hct (test code = Hct) 27.2 36.0-48.0 [facility] HospitalKnagofzLDKXTNXSKV2276-22-45 06:44:00 Test Item Value Reference Range Interpretation Comments MCHC (test code = MCHC) 29.9 32.0-36.0 [facility] HospitalUnfmlzaWETGEQMSZL3980-11-33 06:44:00 Test Item Value Reference Range Interpretation Comments Platelet (test code = Platelet) 400 133-450 [facility] HospitalKwobkdfPJQXLIYWTU9895-30-44 06:44:00 Test Item Value Reference Range Interpretation Comments WBC (test code = WBC) 12.4 3.7-10.4 [facility] HospitalNgfpvplOCNBTCYOSG4525-98-70 06:44:00 Test Item Value Reference Range Interpretation Comments RBC (test code = RBC) 3.72 4.20-5.40 [place] [id number] 06:44:00 Test Item Value Reference Range Interpretation Comments Hgb (test code = Hgb) 8.1 12.0-16.0 [facility] HospitalGbidhtqGZDMQFNZZU7782-36-78 06:44:00 Test Item Value Reference Range Interpretation Comments PTT (test code = PTT) 27.2 s 22.9-35.8 [facility] HospitalKzornmuNWXZQKODMU7808-17-97 06:44:00 Test Item Value Reference Range Interpretation Comments PT (test code = PT) 14.7 s 12.0-14.7 [place] 9[address]-07-03 06:44:00 Test Item Value Reference Range Interpretation Comments INR (test code = INR) 1.12 0.85-1.17 [facility] HospitalRzdtnmqYJMCJXQIDU2067-84-15 07:51:00 Test Item Value Reference Range Interpretation Comments RDW (test code = RDW) 13.0 11.5-14.5 [facility] HospitalUscnqoiBODRILAIGJ2228-51-14 07:51:00 Test Item Value Reference Range Interpretation Comments MPV (test code = MPV) 8.4 7.4-10.4 [facility] HospitalBcrgmjyANCWORMANX4862-61-21 07:51:00 Test Item Value Reference Range Interpretation Comments Platelet (test code = Platelet) 356 133-450 [facility] HospitalZnphzvtUZEWCCUKNT7722-19-07 07:51:00 Test Item Value Reference Range Interpretation Comments RBC (test code = RBC) 4.45 4.20-5.40 [facility] HospitalPyqbbfxVPBXPGDCZZ7015-68-86 07:51:00 Test Item Value Reference Range Interpretation Comments WBC (test code = WBC) 12.9 3.7-10.4 [facility] HospitalFzaopngFWMQRYIQOM3481-02-26 07:51:00 Test Item Value Reference Range Interpretation Comments Hgb (test code = Hgb) 13.5 12.0-16.0 [facility] HospitalIreiygkMIGZMETNZY0576-13-20 07:51:00 Test Item Value Reference Range Interpretation Comments MCV (test code = MCV) 89.7 80.0-98.0 [facility] HospitalUvnvywmGCJDLILOIA5681-36-18 07:51:00 Test Item Value Reference Range Interpretation Comments Hct (test code = Hct) 39.9 36.0-48.0 [facility] HospitalIhfodyvZRTWAINAIX9767-82-51 07:51:00 Test Item Value Reference Range Interpretation Comments Eosinophils # (test code 0.3 See_Comment [A utomated message] The = Eosinophils #) system whic h generated this result tra nsmitted reference range : <=0.5. The reference r ozzy was not used to int erpret this result as normal/abnormal . [facility] HospitalTunezhfUVAQIBXIRK6174-48-35 07:51:00 Test Item Value Reference Range Interpretation Comments Lymphocytes # (test code = Lymphocytes 3.6 1.0-5.5 #) [facility] HospitalZigmbyoFDOHNTRMNV2337-99-82 07:51:00 Test Item Value Reference Range Interpretation Comments Monocytes # (test code 0.7 See_Comment [Aut omated message] The = Monocytes #) system which generated this result tra nsmitted reference range : <=0.8. The reference r ozzy was not used to int erpret this result as normal/abnormal . [facility] HospitalGikrdqhSPPABLXGEP0340-90-62 07:51:00 Test Item Value Reference Range Interpretation Comments Segs (test code = Segs) 63.9 45.0-75.0 [facility] HospitalZwdhfypBIPVEFEMWU6052-09-14 07:51:00 Test Item Value Reference Range Interpretation Comments Segs-Bands # (test code = Segs-Bands #) 8.2 1.5-8.1 [facility] HospitalKkripsuMXCGULUTQL2142-13-99 07:51:00 Test Item Value Reference Range Interpretation Comments Basophils (test code = 0.7 See_Comment [Aut omated message] The Basophils) system which ge nerated this result tra nsmitted reference range : <=1.0. The reference r ozzy was not used to int erpret this result as normal/abnormal . [facility] HospitalAmjkeezGJWCQEOQCH2510-94-52 07:51:00 Test Item Value Reference Range Interpretation Comments Monocytes (test code = Monocytes) 5.4 2.0-12.0 [facility] HospitalYhthtvnHSIZADUFYJ2809-03-23 07:51:00 Test Item Value Reference Range Interpretation Comments Eosinophils (test code = 2.3 See_Comment [A utomated message] The Eosinophils) system which ge nerated this result tra nsmitted reference range : <=4.0. The reference r ozzy was not used to int erpret this result as normal/abnormal . [facility] HospitalXqavmynCDHNOOPGVO2021-85-61 07:51:00 Test Item Value Reference Range Interpretation Comments Lymphocytes (test code = Lymphocytes) 27.7 20.0-40.0 [facility] HospitalTmueoidRYGSBAJHMK3802-70-22 07:51:00 Test Item Value Reference Range Interpretation Comments Basophils # (test code 0.1 See_Comment [Aut omated message] The = Basophils #) system which generated this result tra nsmitted reference range : <=0.2. The reference r ozzy was not used to int erpret this result as normal/abnormal . [facility] AND [id number] 07:51:00 Test Item Value Reference Range Interpretation Comments UA Urobilinogen (test code = UA 1.0 0.1-1.0 Urobilinogen) [facility] AND [id number] 07:51:00 Test Item Value Reference Range Interpretation Comments UA Turbidity (test code Cloudy *ABN*(09/04/14 = UA Turbidity) 1:51 AM) [facility] AND [id number] 07:51:00 Test Item Value Reference Range Interpretation Comments UA Color (test code = Red *ABN*(09/04/14 1:51 UA Color) AM) [facility] AND [id number] 07:51:00 Test Item Value Reference Range Interpretation Comments UA Ketones (test code Negative *NA*(09/04/14 = UA Ketones) 1:51 AM) [facility] AND [id number] 07:51:00 Test Item Value Reference Range Interpretation Comments UA Glucose (test code Negative (09/04/14 1:51 = UA Glucose) AM) [facility] AND [id number] 07:51:00 Test Item Value Reference Range Interpretation Comments UA Protein (test code = Trace *ABN*(09/04/14 UA Protein) 1:51 AM) [facility] AND [id number] 07:51:00 Test Item Value Reference Range Interpretation Comments UA pH (test code = UA pH) 8.0 1 5.0-8.0 [facility] AND [id number] 07:51:00 Test Item Value Reference Range Interpretation Comments UA Spec Grav (test code = UA Spec 1.015 1 Grav) [facility] AND [id number] 07:51:00 Test Item Value Reference Range Interpretation Comments UA Bili (test code = Negative *NA*(09/04/14 UA Bili) 1:51 AM) [facility] AND [id number] 07:51:00 Test Item Value Reference Range Interpretation Comments UA Blood (test code = Large *ABN*(09/04/14 UA Blood) 1:51 AM) [facility] AND [id number] 07:51:00 Test Item Value Reference Range Interpretation Comments UA Leuk Est (test Negative (09/04/14 1:51 code = UA Leuk Est) AM) [facility] AND [id number] 07:51:00 Test Item Value Reference Range Interpretation Comments UA Nitrite (test code Negative (09/04/14 1:51 = UA Nitrite) AM) [facility] AND [id number] 07:51:00 Test Item Value Reference Range Interpretation Comments UA Amorph Joselin (test code = UA Few /HPF Amorph Joselin) [facility] AND [id number] 07:51:00 Test Item Value Reference Range Interpretation Comments UA RBC (test code 51-100 /HPF See_Comment [Automate d message] The = UA RBC) system which ge nerated this result tra nsmitted reference range : <=2. The reference r ozzy was not used to int erpret this result as normal/abnormal . [facility] AND [id number] 07:51:00 Test Item Value Reference Range Interpretation Comments UA WBC (test code = UA WBC) 6-10 /HPF [facility] AND [id number] 07:51:00 Test Item Value Reference Range Interpretation Comments UA Bacteria (test code = UA Few /HPF Bacteria) [facility] AND [id number] 07:51:00 Test Item Value Reference Range Interpretation Comments UA Sq Epi (test code = UA Sq Occasional /LPF Epi) [facility] [id number] 07:51:00 Test Item Value Reference Range Interpretation Comments ABO/Rh (test code = ABO/Rh) A POS [facility] [id number] 07:51:00 Test Item Value Reference Range Interpretation Comments Antibody Scrn (test Negative (09/04/14 1:51 code = Antibody Scrn) AM) [facility]2015-01-23 07:51:00 Test Item Value Reference Range Interpretation Comments Albumin Lvl (test code = Albumin Lvl) 3.4 3.5-5.0 [facility]2015-01-23 07:51:00 Test Item Value Reference Range Interpretation Comments Alk Phos (test code = Alk Phos) 64 39-136 [facility]2015-01-23 07:51:00 Test Item Value Reference Range Interpretation Comments ALT (test code = ALT) 18 See_Comment [Auto mated message] The system which ge nerated this result transmit gaye reference range : <=65. The reference range was not used to interpr et this result as satish l/abnormal. [facility] [id number] 07:51:00 Test Item Value Reference Range Interpretation Comments AST (test code = AST) 12 See_Comment [Auto mated message] The system which ge nerated this result transmit gaye reference range : <=37. The reference range was not used to interpr et this result as satish l/abnormal. [facility] [id number] 07:51:00 Test Item Value Reference Range Interpretation Comments eGFR (test code = eGFR) 93 [facility]2015-01-23 07:51:00 Test Item Value Reference Range Interpretation Comments Bili Total (test code = Bili Total) 0.3 0.2-1.3 [facility]2015-01-23 07:51:00 Test Item Value Reference Range Interpretation Comments Chloride Lvl (test code = Chloride Lvl) 108 95-109 [facility]2015-01-23 07:51:00 Test Item Value Reference Range Interpretation Comments Sodium Lvl (test code = Sodium Lvl) 138 135-145 [facility]2015-01-23 07:51:00 Test Item Value Reference Range Interpretation Comments Potassium Lvl (test code = Potassium 3.9 3.5-5.1 Lvl) [facility]2015-01-23 07:51:00 Test Item Value Reference Range Interpretation Comments CO2 (test code = CO2) 22 24-32 [facility] [id number] 07:51:00 Test Item Value Reference Range Interpretation Comments Calcium Lvl (test code = Calcium Lvl) 8.8 8.5-10.5 [facility] [id number] 07:51:00 Test Item Value Reference Range Interpretation Comments Glucose Lvl (test code = Glucose Lvl) 98 70-99 [facility] [id number] 07:51:00 Test Item Value Reference Range Interpretation Comments Total Protein (test code = Total 7.3 6.4-8.4 Protein) [facility] [id number] 07:51:00 Test Item Value Reference Range Interpretation Comments BUN (test code = BUN) 12 - [facility] HospitalGhostery, Inc.[facility]QGRLL4925-55-06 07:51:00 Test Item Value Reference Range Interpretation Comments Creatinine Lvl (test code = Creatinine 0.8 0.5-1.4 Lvl) [facility] [id number] 07:51:00 Test Item Value Reference Range Interpretation Comments AGAP (test code = AGAP) 11.9 10.0-20.0 [facility] [id number] 07:51:00 Test Item Value Reference Range Interpretation Comments B/C Ratio (test code = B/C Ratio) 15 6-25 [facility]biz[facility] [id number] 07:51:00 Test Item Value Reference Range Interpretation Comments ABO/Rh (test code = ABO/Rh) A POS [facility] [employer] [id number] 07:51:00 Test Item Value Reference Range Interpretation Comments Antibody Scrn (test Negative (09/04/14 1:51 code = Antibody Scrn) AM) [facility] [id number] 07:51:00 Test Item Value Reference Range Interpretation Comments Albumin Lvl (test code = Albumin Lvl) 3.4 3.5-5.0 [facility] [id number] 07:51:00 Test Item Value Reference Range Interpretation Comments Alk Phos (test code = Alk Phos) 64 39-136 [facility] [id number] 07:51:00 Test Item Value Reference Range Interpretation Comments ALT (test code = ALT) 18 See_Comment [Auto mated message] The system which ge nerated this result transmit gaye reference range : <=65. The reference range was not used to interpr et this result as satish l/abnormal. [facility]2015-01-23 07:51:00 Test Item Value Reference Range Interpretation Comments AST (test code = AST) 12 See_Comment [Auto mated message] The system which ge nerated this result transmit gaye reference range : <=37. The reference range was not used to interpr et this result as satish l/abnormal. [facility]2015-01-23 07:51:00 Test Item Value Reference Range Interpretation Comments eGFR (test code = eGFR) 93 [facility]2015-01-23 07:51:00 Test Item Value Reference Range Interpretation Comments Bili Total (test code = Bili Total) 0.3 0.2-1.3 [facility]2015-01-23 07:51:00 Test Item Value Reference Range Interpretation Comments Chloride Lvl (test code = Chloride Lvl) 108 95-109 [facility]2015-01-23 07:51:00 Test Item Value Reference Range Interpretation Comments Sodium Lvl (test code = Sodium Lvl) 138 135-145 [facility] HospitalGhost[facility], Inc.[id number] 07:51:00 Test Item Value Reference Range Interpretation Comments Potassium Lvl (test code = Potassium 3.9 3.5-5.1 Lvl) [facility]2015-01-23 07:51:00 Test Item Value Reference Range Interpretation Comments CO2 (test code = CO2) 22 24-32 [id number] 07:51:00 Test Item Value Reference Range Interpretation Comments Calcium Lvl (test code = Calcium Lvl) 8.8 8.5-10.5 [facility] Inc.[id number] 07:51:00 Test Item Value Reference Range Interpretation Comments Glucose Lvl (test code = Glucose Lvl) 98 70-99 [facility]2015-01-23 07:51:00 Test Item Value Reference Range Interpretation Comments Total Protein (test code = Total 7.3 6.4-8.4 Protein) [facility]2015-01-23 07:51:00 Test Item Value Reference Range Interpretation Comments BUN (test code = BUN) 12 7-22 [facility]2015-01-23 07:51:00 Test Item Value Reference Range Interpretation Comments Creatinine Lvl (test code = Creatinine 0.8 0.5-1.4 Lvl) [facility]2015-01-23 07:51:00 Test Item Value Reference Range Interpretation Comments AGAP (test code = AGAP) 11.9 10.0-20.0 [facility]2015-01-23 07:51:00 Test Item Value Reference Range Interpretation Comments B/C Ratio (test code = B/C Ratio) 15 6-25 [facility]2015-01-23 07:51:00 Test Item Value Reference Range Interpretation Comments Globulin (test code = Globulin) 3.9 2.0-4.0 [facility]2015-01-23 07:51:00 Test Item Value Reference Range Interpretation Comments A/G Ratio (test code = A/G Ratio) 0.9 0.7-1.6 [facility]xa[facility]oGECBMEKWVOQJI2386-16-53 07:51:00 Test Item Value Reference Range Interpretation Comments hCG Tot (test code = hCG Tot) no gt [facility] HospitalZacfhetBAFAAZIXLT8203-49-03 07:51:00 Test Item Value Reference Range Interpretation Comments MCHC (test code = MCHC) 33.8 32.0-36.0 [facility] HospitalZfceyqrVKKOGBLZSB6893-03-89 07:51:00 Test Item Value Reference Range Interpretation Comments MCH (test code = MCH) 30.3 pg 27.0-31.0 [facility] HospitalHdbfesaLFGEZUVDPP9624-91-17 07:51:00 Test Item Value Reference Range Interpretation Comments RDW (test code = RDW) 13.0 11.5-14.5 [facility] HospitalSaifyvmUPFOHMXZPK6683-73-19 07:51:00 Test Item Value Reference Range Interpretation Comments MPV (test code = MPV) 8.4 7.4-10.4 [facility] HospitalJpawotkHABGPFWPPW5497-22-49 07:51:00 Test Item Value Reference Range Interpretation Comments Platelet (test code = Platelet) 356 467-450 [facility] HospitalCotgczzDYVQMNPWOJ0499-79-05 07:51:00 Test Item Value Reference Range Interpretation Comments RBC (test code = RBC) 4.45 4.20-5.40 [facility] HospitalHjdkydwGEUTUJLHSG9075-92-20 07:51:00 Test Item Value Reference Range Interpretation Comments WBC (test code = WBC) 12.9 3.7-10.4 [facility] HospitalUebwmgeLWECLRWPZJ0494-61-68 07:51:00 Test Item Value Reference Range Interpretation Comments Hgb (test code = Hgb) 13.5 12.0-16.0 [facility] HospitalBvpnjrqXPXDQQGLAG4075-86-50 07:51:00 Test Item Value Reference Range Interpretation Comments MCV (test code = MCV) 89.7 80.0-98.0 [facility] HospitalJhxforvDMYYTRWHHU0453-73-12 07:51:00 Test Item Value Reference Range Interpretation Comments Hct (test code = Hct) 39.9 36.0-48.0 [facility] HospitalZzyspibULRJGASOYD5926-78-50 07:51:00 Test Item Value Reference Range Interpretation Comments Eosinophils # (test code 0.3 See_Comment [A utomated message] The = Eosinophils #) system whic h generated this result tra nsmitted reference range : <=0.5. The reference r ozzy was not used to int erpret this result as normal/abnormal . [facility] HospitalFweqlmfOMJSLXVBIN9417-88-36 07:51:00 Test Item Value Reference Range Interpretation Comments Lymphocytes # (test code = Lymphocytes 3.6 1.0-5.5 #) [facility] HospitalOyfemniUHRDGQMTAQ1554-56-85 07:51:00 Test Item Value Reference Range Interpretation Comments Monocytes # (test code 0.7 See_Comment [Aut omated message] The = Monocytes #) system which generated this result tra nsmitted reference range : <=0.8. The reference r ozzy was not used to int erpret this result as normal/abnormal . [facility] HospitalKyvfjalSSBLOKIELQ3315-08-72 07:51:00 Test Item Value Reference Range Interpretation Comments Segs (test code = Segs) 63.9 45.0-75.0 [facility] HospitalOuoxgdhQAGUYKIZUG0781-19-48 07:51:00 Test Item Value Reference Range Interpretation Comments Segs-Bands # (test code = Segs-Bands #) 8.2 1.5-8.1 [facility] HospitalTuxexenBCUGAYTBBY0786-21-06 07:51:00 Test Item Value Reference Range Interpretation Comments Basophils (test code = 0.7 See_Comment [Aut omated message] The Basophils) system which ge nerated this result tra nsmitted reference range : <=1.0. The reference r ozzy was not used to int erpret this result as normal/abnormal . [facility] HospitalIxzkrwgPQWGYIBKHC7926-92-52 07:51:00 Test Item Value Reference Range Interpretation Comments Monocytes (test code = Monocytes) 5.4 2.0-12.0 [facility] HospitalJrgxdslWMGSNUSIOQ4260-86-87 07:51:00 Test Item Value Reference Range Interpretation Comments Eosinophils (test code = 2.3 See_Comment [A utomated message] The Eosinophils) system which ge nerated this result tra nsmitted reference range : <=4.0. The reference r ozzy was not used to int erpret this result as normal/abnormal . [facility] HospitalQulnunhCPCPIGMLEI7865-54-00 07:51:00 Test Item Value Reference Range Interpretation Comments Lymphocytes (test code = Lymphocytes) 27.7 20.0-40.0 [facility] HospitalNaaymwaLBFYHQMMEE2354-45-74 07:51:00 Test Item Value Reference Range Interpretation Comments Basophils # (test code 0.1 See_Comment [Aut omated message] The = Basophils #) system which generated this result tra nsmitted reference range : <=0.2. The reference r ozzy was not used to int erpret this result as normal/abnormal . [facility]2015-01-23 07:51:00 Test Item Value Reference Range Interpretation Comments UA Urobilinogen (test code = UA 1.0 0.1-1.0 Urobilinogen) [facility] AND [id number] 07:51:00 Test Item Value Reference Range Interpretation Comments UA Turbidity (test code Cloudy *ABN*(09/04/14 = UA Turbidity) 1:51 AM) [facility]2015-01-23 07:51:00 Test Item Value Reference Range Interpretation Comments UA Color (test code = Red *ABN*(09/04/14 1:51 UA Color) AM) [facility]2015-01-23 07:51:00 Test Item Value Reference Range Interpretation Comments UA Ketones (test code Negative *NA*(09/04/14 = UA Ketones) 1:51 AM) [facility]2015-01-23 07:51:00 Test Item Value Reference Range Interpretation Comments UA Glucose (test code Negative (09/04/14 1:51 = UA Glucose) AM) [facility] AND [id number] 07:51:00 Test Item Value Reference Range Interpretation Comments UA Protein (test code = Trace *ABN*(09/04/14 UA Protein) 1:51 AM) [facility] AND [id number] 07:51:00 Test Item Value Reference Range Interpretation Comments UA pH (test code = UA pH) 8.0 1 5.0-8.0 [facility] AND [id number] 07:51:00 Test Item Value Reference Range Interpretation Comments UA Spec Grav (test code = UA Spec 1.015 1 Grav) [facility] AND [id number] 07:51:00 Test Item Value Reference Range Interpretation Comments UA Bili (test code = Negative *NA*(09/04/14 UA Bili) 1:51 AM) [facility] AND [id number] 07:51:00 Test Item Value Reference Range Interpretation Comments UA Blood (test code = Large *ABN*(09/04/14 UA Blood) 1:51 AM) [facility] AND [id number] 07:51:00 Test Item Value Reference Range Interpretation Comments UA Leuk Est (test Negative (09/04/14 1:51 code = UA Leuk Est) AM) [facility] AND [id number] 07:51:00 Test Item Value Reference Range Interpretation Comments UA Nitrite (test code Negative (09/04/14 1:51 = UA Nitrite) AM) [facility] AND [id number] 07:51:00 Test Item Value Reference Range Interpretation Comments UA Amorph Joselin (test code = UA Few /HPF Amorph Joselin) [facility] AND [id number] 07:51:00 Test Item Value Reference Range Interpretation Comments UA RBC (test code 51-100 /HPF See_Comment [Automate d message] The = UA RBC) system which ge nerated this result tra nsmitted reference range : <=2. The reference r ozzy was not used to int erpret this result as normal/abnormal . [facility] AND [id number] 07:51:00 Test Item Value Reference Range Interpretation Comments UA WBC (test code = UA WBC) 6-10 /HPF [facility] AND [id number] 07:51:00 Test Item Value Reference Range Interpretation Comments UA Bacteria (test code = UA Few /HPF Bacteria) [facility] [id number] 07:51:00 Test Item Value Reference Range Interpretation Comments UA Sq Epi (test code = UA Sq Occasional /LPF Epi) [facility] [id number] 07:51:00 Test Item Value Reference Range Interpretation Comments Globulin (test code = Globulin) 3.9 2.0-4.0 [facility] [id number] 07:51:00 Test Item Value Reference Range Interpretation Comments A/G Ratio (test code = A/G Ratio) 0.9 0.7-1.6 [place] [facility]PR[facility]LLLBW9065-57-18 07:51:00 Test Item Value Reference Range Interpretation Comments hCG Tot (test code = hCG Tot) no gt [facility] HospitalFbdvaspTRVDFVIDIM7521-35-46 07:51:00 Test Item Value Reference Range Interpretation Comments MCHC (test code = MCHC) 33.8 32.0-36.0 [facility] HospitalIgpxvlcNBTWFNVVQB8254-31-48 07:51:00 Test Item Value Reference Range Interpretation Comments MCH (test code = MCH) 30.3 pg 27.0-31.0 [facility] HospitalBfhzliyLQDGFKDEXR8858-98-28 07:51:00 Test Item Value Reference Range Interpretation Comments RDW (test code = RDW) 13.0 11.5-14.5 [facility] HospitalWqtnkbmZDWIGTJNHT9532-62-52 07:51:00 Test Item Value Reference Range Interpretation Comments MPV (test code = MPV) 8.4 7.4-10.4 [facility] HospitalLkakofgOOVWIVXSVD3403-77-76 07:51:00 Test Item Value Reference Range Interpretation Comments Platelet (test code = Platelet) 356 133-450 [facility] HospitalRxplebeMKMXCNSOXY9946-25-89 07:51:00 Test Item Value Reference Range Interpretation Comments RBC (test code = RBC) 4.45 4.20-5.40 [facility]zUMIJCNHLSB6924-27-38 07:51:00 Test Item Value Reference Range Interpretation Comments WBC (test code = WBC) 12.9 3.7-10.4 [facility] HospitalJzeqazxVLARHDTVDG2806-33-22 07:51:00 Test Item Value Reference Range Interpretation Comments Hgb (test code = Hgb) 13.5 12.0-16.0 [facility] HospitalFuhyqjzRIBKVUOEUX1992-82-15 07:51:00 Test Item Value Reference Range Interpretation Comments MCV (test code = MCV) 89.7 80.0-98.0 [facility] HospitalVqojmkxQGAFYZFBST7863-88-13 07:51:00 Test Item Value Reference Range Interpretation Comments Hct (test code = Hct) 39.9 36.0-48.0 [facility] HospitalWzsujbeBACKUVJOJE0120-52-15 07:51:00 Test Item Value Reference Range Interpretation Comments Eosinophils # (test code 0.3 See_Comment [A utomated message] The = Eosinophils #) system whic h generated this result tra nsmitted reference range : <=0.5. The reference r ozzy was not used to int erpret this result as normal/abnormal . [facility] HospitalYmnuwwrBAREYELYQM3596-54-54 07:51:00 Test Item Value Reference Range Interpretation Comments Lymphocytes # (test code = Lymphocytes 3.6 1.0-5.5 #) [facility] HospitalIppjvdvTMJJRHTDNT6599-20-03 07:51:00 Test Item Value Reference Range Interpretation Comments Monocytes # (test code 0.7 See_Comment [Aut omated message] The = Monocytes #) system which generated this result tra nsmitted reference range : <=0.8. The reference r ozzy was not used to int erpret this result as normal/abnormal . [facility] HospitalQxjkqpzANSUVRSXJV0252-60-55 07:51:00 Test Item Value Reference Range Interpretation Comments Segs (test code = Segs) 63.9 45.0-75.0 [facility] HospitalYzuqpniJFSHITMVWB5214-07-69 07:51:00 Test Item Value Reference Range Interpretation Comments Segs-Bands # (test code = Segs-Bands #) 8.2 1.5-8.1 [facility] HospitalKihezjkBQASRTHLUQ0396-82-32 07:51:00 Test Item Value Reference Range Interpretation Comments Basophils (test code = 0.7 See_Comment [Aut omated message] The Basophils) system which ge nerated this result tra nsmitted reference range : <=1.0. The reference r ozzy was not used to int erpret this result as normal/abnormal . [facility] HospitalKwpccgkKGTGJDNSKV3318-66-95 07:51:00 Test Item Value Reference Range Interpretation Comments Monocytes (test code = Monocytes) 5.4 2.0-12.0 [facility] HospitalYklmsmtUAVHVNRIDQ7018-13-08 07:51:00 Test Item Value Reference Range Interpretation Comments Eosinophils (test code = 2.3 See_Comment [A utomated message] The Eosinophils) system which ge nerated this result tra nsmitted reference range : <=4.0. The reference r ozzy was not used to int erpret this result as normal/abnormal . [facility] HospitalLytniofDFWMIMAWDI3186-89-18 07:51:00 Test Item Value Reference Range Interpretation Comments Lymphocytes (test code = Lymphocytes) 27.7 20.0-40.0 [facility] HospitalTvzpuotNBSWGUZYOB5397-59-09 07:51:00 Test Item Value Reference Range Interpretation Comments Basophils # (test code 0.1 See_Comment [Aut omated message] The = Basophils #) system which generated this result tra nsmitted reference range : <=0.2. The reference r ozzy was not used to int erpret this result as normal/abnormal . [facility] AND [id number] 07:51:00 Test Item Value Reference Range Interpretation Comments UA Urobilinogen (test code = UA 1.0 0.1-1.0 Urobilinogen) [facility] AND [id number] 07:51:00 Test Item Value Reference Range Interpretation Comments UA Turbidity (test code Cloudy *ABN*(09/04/14 = UA Turbidity) 1:51 AM) [facility] AND [id number] 07:51:00 Test Item Value Reference Range Interpretation Comments UA Color (test code = Red *ABN*(09/04/14 1:51 UA Color) AM) [facility] AND [id number] 07:51:00 Test Item Value Reference Range Interpretation Comments UA Ketones (test code Negative *NA*(09/04/14 = UA Ketones) 1:51 AM) [facility] AND [id number] 07:51:00 Test Item Value Reference Range Interpretation Comments UA Glucose (test code Negative (09/04/14 1:51 = UA Glucose) AM) [facility] AND [id number] 07:51:00 Test Item Value Reference Range Interpretation Comments UA Protein (test code = Trace *ABN*(09/04/14 UA Protein) 1:51 AM) [facility] AND [id number] 07:51:00 Test Item Value Reference Range Interpretation Comments UA pH (test code = UA pH) 8.0 1 5.0-8.0 [facility] AND [id number] 07:51:00 Test Item Value Reference Range Interpretation Comments UA Spec Grav (test code = UA Spec 1.015 1 Grav) [facility] AND [id number] 07:51:00 Test Item Value Reference Range Interpretation Comments UA Bili (test code = Negative *NA*(09/04/14 UA Bili) 1:51 AM) [facility] AND [id number] 07:51:00 Test Item Value Reference Range Interpretation Comments UA Blood (test code = Large *ABN*(09/04/14 UA Blood) 1:51 AM) [facility] AND [id number] 07:51:00 Test Item Value Reference Range Interpretation Comments UA Leuk Est (test Negative (09/04/14 1:51 code = UA Leuk Est) AM) [facility] AND [id number] 07:51:00 Test Item Value Reference Range Interpretation Comments UA Nitrite (test code Negative (09/04/14 1:51 = UA Nitrite) AM) [facility] AND [id number] 07:51:00 Test Item Value Reference Range Interpretation Comments UA Amorph Joselin (test code = UA Few /HPF Amorph Joselin) [facility] AND [id number] 07:51:00 Test Item Value Reference Range Interpretation Comments UA RBC (test code 51-100 /HPF See_Comment [Automate d message] The = UA RBC) system which ge nerated this result tra nsmitted reference range : <=2. The reference r ozzy was not used to int erpret this result as normal/abnormal . [facility] AND [id number] 07:51:00 Test Item Value Reference Range Interpretation Comments UA WBC (test code = UA WBC) 6-10 /HPF [facility] AND [id number] 07:51:00 Test Item Value Reference Range Interpretation Comments UA Bacteria (test code = UA Few /HPF Bacteria) [facility] AND [id number] 07:51:00 Test Item Value Reference Range Interpretation Comments UA Sq Epi (test code = UA Sq Occasional /LPF Epi) [facility] [employer] [id number] 07:51:00 Test Item Value Reference Range Interpretation Comments ABO/Rh (test code = ABO/Rh) A POS [facility] [employer] [id number] 07:51:00 Test Item Value Reference Range Interpretation Comments Antibody Scrn (test Negative (09/04/14 1:51 code = Antibody Scrn) AM) [facility] [employer] [id number] 07:51:00 Test Item Value Reference Range Interpretation Comments Albumin Lvl (test code = Albumin Lvl) 3.4 3.5-5.0 [facility] [employer]2015-01-23 07:51:00 Test Item Value Reference Range Interpretation Comments Alk Phos (test code = Alk Phos) 64 39-136 [facility] [employer] [id number] 07:51:00 Test Item Value Reference Range Interpretation Comments ALT (test code = ALT) 18 See_Comment [Auto mated message] The system which ge nerated this result transmit gaye reference range : <=65. The reference range was not used to interpr et this result as satish l/abnormal. [facility] [employer] [id number] 07:51:00 Test Item Value Reference Range Interpretation Comments AST (test code = AST) 12 See_Comment [Auto mated message] The system which ge nerated this result transmit gaye reference range : <=37. The reference range was not used to interpr et this result as satish l/abnormal. [facility] [employer] [id number] 07:51:00 Test Item Value Reference Range Interpretation Comments eGFR (test code = eGFR) 93 [facility] [employer] [id number] 07:51:00 Test Item Value Reference Range Interpretation Comments Bili Total (test code = Bili Total) 0.3 0.2-1.3 [facility] [employer] [id number] 07:51:00 Test Item Value Reference Range Interpretation Comments Chloride Lvl (test code = Chloride Lvl) 108 95-109 [facility] [employer] [id number] 07:51:00 Test Item Value Reference Range Interpretation Comments Sodium Lvl (test code = Sodium Lvl) 138 135-145 [facility] [employer] [id number] 07:51:00 Test Item Value Reference Range Interpretation Comments Potassium Lvl (test code = Potassium 3.9 3.5-5.1 Lvl) [facility]2015-01-23 07:51:00 Test Item Value Reference Range Interpretation Comments CO2 (test code = CO2) 22 24-32 [facility]2015-01-23 07:51:00 Test Item Value Reference Range Interpretation Comments Calcium Lvl (test code = Calcium Lvl) 8.8 8.5-10.5 [facility]2015-01-23 07:51:00 Test Item Value Reference Range Interpretation Comments Glucose Lvl (test code = Glucose Lvl) 98 70-99 [facility]2015-01-23 07:51:00 Test Item Value Reference Range Interpretation Comments Total Protein (test code = Total 7.3 6.4-8.4 Protein) [facility]2015-01-23 07:51:00 Test Item Value Reference Range Interpretation Comments BUN (test code = BUN) 12 7- [facility]2015-01-23 07:51:00 Test Item Value Reference Range Interpretation Comments Creatinine Lvl (test code = Creatinine 0.8 0.5-1.4 Lvl) [facility]2015-01-23 07:51:00 Test Item Value Reference Range Interpretation Comments AGAP (test code = AGAP) 11.9 10.0-20.0 [facility]2015-01-23 07:51:00 Test Item Value Reference Range Interpretation Comments B/C Ratio (test code = B/C Ratio) 15 6-25 [facility]2015-01-23 07:51:00 Test Item Value Reference Range Interpretation Comments Globulin (test code = Globulin) 3.9 2.0-4.0 [facility]2015-01-23 07:51:00 Test Item Value Reference Range Interpretation Comments A/G Ratio (test code = A/G Ratio) 0.9 0.7-1.6 [id number] 07:51:00 Test Item Value Reference Range Interpretation Comments hCG Tot (test code = hCG Tot) no gt [facility]LlcjckoUPAAKUHABD7080-15-24 07:51:00 Test Item Value Reference Range Interpretation Comments MCHC (test code = MCHC) 33.8 32.0-36.0 [id number] 07:51:00 Test Item Value Reference Range Interpretation Comments MCH (test code = MCH) 30.3 pg 27.0-31.0 [facility] HospitalYvpppzlFDDUWHOOPM3602-27-40 07:51:00 Test Item Value Reference Range Interpretation Comments RDW (test code = RDW) 13.0 11.5-14.5 [facility] HospitalMuuxzuaVHMXQDXAML6359-91-10 07:51:00 Test Item Value Reference Range Interpretation Comments MPV (test code = MPV) 8.4 7.4-10.4 [facility] HospitalJzaanhxRALXZDNTKF2962-60-14 07:51:00 Test Item Value Reference Range Interpretation Comments Platelet (test code = Platelet) 356 133-450 [facility] HospitalQclqupoHVAPRRHXTW2278-94-89 07:51:00 Test Item Value Reference Range Interpretation Comments RBC (test code = RBC) 4.45 4.20-5.40 [facility] HospitalTkoxfbjZYHPMNRMUY9803-23-60 07:51:00 Test Item Value Reference Range Interpretation Comments WBC (test code = WBC) 12.9 3.7-10.4 [facility] HospitalNsajtbyXHCFPLHGCF8844-81-27 07:51:00 Test Item Value Reference Range Interpretation Comments Hgb (test code = Hgb) 13.5 12.0-16.0 [facility] HospitalAtvudlwZLELBUSIVR9134-87-16 07:51:00 Test Item Value Reference Range Interpretation Comments MCV (test code = MCV) 89.7 80.0-98.0 [facility] HospitalWplrvmmNIDRAPEGHY9797-15-46 07:51:00 Test Item Value Reference Range Interpretation Comments Hct (test code = Hct) 39.9 36.0-48.0 [facility] HospitalOhzvorwTKSVHXIUHF1268-78-68 07:51:00 Test Item Value Reference Range Interpretation Comments Eosinophils # (test code 0.3 See_Comment [A utomated message] The = Eosinophils #) system whic h generated this result tra nsmitted reference range : <=0.5. The reference r ozzy was not used to int erpret this result as normal/abnormal . [facility] HospitalWtbrgxdXGTYCEEULP0697-77-13 07:51:00 Test Item Value Reference Range Interpretation Comments Lymphocytes # (test code = Lymphocytes 3.6 1.0-5.5 #) [facility] HospitalPuihtakCYQRSFYFBO3661-37-28 07:51:00 Test Item Value Reference Range Interpretation Comments Monocytes # (test code 0.7 See_Comment [Aut omated message] The = Monocytes #) system which generated this result tra nsmitted reference range : <=0.8. The reference r ozzy was not used to int erpret this result as normal/abnormal . [facility] HospitalOoydyeiWFYJORAYLT9578-64-05 07:51:00 Test Item Value Reference Range Interpretation Comments Segs (test code = Segs) 63.9 45.0-75.0 [facility] HospitalYqvusfkFCMABPGOAN0813-04-26 07:51:00 Test Item Value Reference Range Interpretation Comments Segs-Bands # (test code = Segs-Bands #) 8.2 1.5-8.1 [facility] Ho[id number] 07:51:00 Test Item Value Reference Range Interpretation Comments Basophils (test code = 0.7 See_Comment [Aut omated message] The Basophils) system which ge nerated this result tra nsmitted reference range : <=1.0. The reference r ozzy was not used to int erpret this result as normal/abnormal . [facility] HospitalGysytjnSPXSHFGBVQ3980-19-21 07:51:00 Test Item Value Reference Range Interpretation Comments Monocytes (test code = Monocytes) 5.4 2.0-12.0 [facility] HospitalGdqykxoSSJMRBDQYG1225-84-49 07:51:00 Test Item Value Reference Range Interpretation Comments Eosinophils (test code = 2.3 See_Comment [A utomated message] The Eosinophils) system which ge nerated this result tra nsmitted reference range : <=4.0. The reference r ozzy was not used to int erpret this result as normal/abnormal . [facility] HospitalIaiogoqNSMWRGZTVF2881-05-07 07:51:00 Test Item Value Reference Range Interpretation Comments Lymphocytes (test code = Lymphocytes) 27.7 20.0-40.0 [facility] HospitalJlpafcaCHUGNXRHPD6515-83-42 07:51:00 Test Item Value Reference Range Interpretation Comments Basophils # (test code 0.1 See_Comment [Aut omated message] The = Basophils #) system which generated this result tra nsmitted reference range : <=0.2. The reference r ozzy was not used to int erpret this result as normal/abnormal . [facility] AND [id number] 07:51:00 Test Item Value Reference Range Interpretation Comments UA Urobilinogen (test code = UA 1.0 0.1-1.0 Urobilinogen) [facility] AND [id number] 07:51:00 Test Item Value Reference Range Interpretation Comments UA Turbidity (test code Cloudy *ABN*(09/04/14 = UA Turbidity) 1:51 AM) [facility] AND [id number] 07:51:00 Test Item Value Reference Range Interpretation Comments UA Color (test code = Red *ABN*(09/04/14 1:51 UA Color) AM) [facility] AND [id number] 07:51:00 Test Item Value Reference Range Interpretation Comments UA Ketones (test code Negative *NA*(09/04/14 = UA Ketones) 1:51 AM) [facility] AND [id number] 07:51:00 Test Item Value Reference Range Interpretation Comments UA Glucose (test code Negative (09/04/14 1:51 = UA Glucose) AM) [facility] AND [id number] 07:51:00 Test Item Value Reference Range Interpretation Comments UA Protein (test code = Trace *ABN*(09/04/14 UA Protein) 1:51 AM) [facility] AND [id number] 07:51:00 Test Item Value Reference Range Interpretation Comments UA pH (test code = UA pH) 8.0 1 5.0-8.0 [facility] AND [id number] 07:51:00 Test Item Value Reference Range Interpretation Comments UA Spec Grav (test code = UA Spec 1.015 1 Grav) [facility] AND [id number] 07:51:00 Test Item Value Reference Range Interpretation Comments UA Bili (test code = Negative *NA*(09/04/14 UA Bili) 1:51 AM) [facility] AND [id number] 07:51:00 Test Item Value Reference Range Interpretation Comments UA Blood (test code = Large *ABN*(09/04/14 UA Blood) 1:51 AM) [facility] AND [id number] 07:51:00 Test Item Value Reference Range Interpretation Comments UA Leuk Est (test Negative (09/04/14 1:51 code = UA Leuk Est) AM) [facility] AND [id number] 07:51:00 Test Item Value Reference Range Interpretation Comments UA Nitrite (test code Negative (09/04/14 1:51 = UA Nitrite) AM) [facility] AND [id number] 07:51:00 Test Item Value Reference Range Interpretation Comments UA Amorph Joselin (test code = UA Few /HPF Amorph Joselin) [facility] AND [id number] 07:51:00 Test Item Value Reference Range Interpretation Comments UA RBC (test code 51-100 /HPF See_Comment [Automate d message] The = UA RBC) system which ge nerated this result tra nsmitted reference range : <=2. The reference r ozzy was not used to int erpret this result as normal/abnormal . [facility] AND [id number] 07:51:00 Test Item Value Reference Range Interpretation Comments UA WBC (test code = UA WBC) 6-10 /HPF [facility] AND [id number] 07:51:00 Test Item Value Reference Range Interpretation Comments UA Bacteria (test code = UA Few /HPF Bacteria) [facility] AND [id number] 07:51:00 Test Item Value Reference Range Interpretation Comments UA Sq Epi (test code = UA Sq Occasional /LPF Epi) [facility] [employer] [id number] 07:51:00 Test Item Value Reference Range Interpretation Comments ABO/Rh (test code = ABO/Rh) A POS [facility] [employer] [id number] 07:51:00 Test Item Value Reference Range Interpretation Comments Antibody Scrn (test Negative (09/04/14 1:51 code = Antibody Scrn) AM) [facility] [employer] [id number] 07:51:00 Test Item Value Reference Range Interpretation Comments Albumin Lvl (test code = Albumin Lvl) 3.4 3.5-5.0 [facility] [employer] [id number] 07:51:00 Test Item Value Reference Range Interpretation Comments Alk Phos (test code = Alk Phos) 64 39-136 [facility] [employer] [id number] 07:51:00 Test Item Value Reference Range Interpretation Comments ALT (test code = ALT) 18 See_Comment [Auto mated message] The system which ge nerated this result transmit gaye reference range : <=65. The reference range was not used to interpr et this result as satish l/abnormal. [facility]2015-01-23 07:51:00 Test Item Value Reference Range Interpretation Comments AST (test code = AST) 12 See_Comment [Auto mated message] The system which ge nerated this result transmit gaye reference range : <=37. The reference range was not used to interpr et this result as satish l/abnormal. [facility]2015-01-23 07:51:00 Test Item Value Reference Range Interpretation Comments eGFR (test code = eGFR) 93 [facility]2015-01-23 07:51:00 Test Item Value Reference Range Interpretation Comments Bili Total (test code = Bili Total) 0.3 0.2-1.3 [facility]2015-01-23 07:51:00 Test Item Value Reference Range Interpretation Comments Chloride Lvl (test code = Chloride Lvl) 108 95-109 [facility]2015-01-23 07:51:00 Test Item Value Reference Range Interpretation Comments Sodium Lvl (test code = Sodium Lvl) 138 135-145 [facility]Ghost[facility] Inc.[facility]ITALRVYQT1161-47-57 07:51:00 Test Item Value Reference Range Interpretation Comments Potassium Lvl (test code = Potassium 3.9 3.5-5.1 Lvl) [facility]2015-01-23 07:51:00 Test Item Value Reference Range Interpretation Comments CO2 (test code = CO2) 22 24-32 [facility] HospitalGhost[facility] Inc.[id number] 07:51:00 Test Item Value Reference Range Interpretation Comments Calcium Lvl (test code = Calcium Lvl) 8.8 8.5-10.5 [facility] HospitalGhost[facility] Inc.[facility] [id number] 07:51:00 Test Item Value Reference Range Interpretation Comments Glucose Lvl (test code = Glucose Lvl) 98 70-99 [facility]2015-01-23 07:51:00 Test Item Value Reference Range Interpretation Comments Total Protein (test code = Total 7.3 6.4-8.4 Protein) [facility]2015-01-23 07:51:00 Test Item Value Reference Range Interpretation Comments BUN (test code = BUN) 12 7-22 [facility]2015-01-23 07:51:00 Test Item Value Reference Range Interpretation Comments Creatinine Lvl (test code = Creatinine 0.8 0.5-1.4 Lvl) [facility]2015-01-23 07:51:00 Test Item Value Reference Range Interpretation Comments AGAP (test code = AGAP) 11.9 10.0-20.0 [facility]2015-01-23 07:51:00 Test Item Value Reference Range Interpretation Comments B/C Ratio (test code = B/C Ratio) 15 6-25 [facility]2015-01-23 07:51:00 Test Item Value Reference Range Interpretation Comments Globulin (test code = Globulin) 3.9 2.0-4.0 [facility]2015-01-23 07:51:00 Test Item Value Reference Range Interpretation Comments A/G Ratio (test code = A/G Ratio) 0.9 0.7-1.6 [facility]xpwAQWXLNMENGHUK5527-[facility]-09 07:51:00 Test Item Value Reference Range Interpretation Comments hCG Tot (test code = hCG Tot) no gt [facility] HospitalMcsmsugJTOPEKQRWA8722-52-76 07:51:00 Test Item Value Reference Range Interpretation Comments MCHC (test code = MCHC) 33.8 32.0-36.0 [facility]DllipdnIJJPMACXTT0649-75-07 07:51:00 Test Item Value Reference Range Interpretation Comments MCH (test code = MCH) 30.3 pg 27.0-31.0 [facility]2015-01-12 19:24:00 Test Item Value Reference Range Interpretation Comments Lipase Lvl (test code = Lipase Lvl) 104 73-393 [facility]2015-01-12 19:24:00 Test Item Value Reference Range Interpretation Comments eGFR (test code = eGFR) 109 [facility]2015-01-12 19:24:00 Test Item Value Reference Range Interpretation Comments Bili Total (test code = Bili Total) 0.6 0.2-1.3 [facility]2015-01-12 19:24:00 Test Item Value Reference Range Interpretation Comments Alk Phos (test code = Alk Phos) 72 39-136 [facility]2015-01-12 19:24:00 Test Item Value Reference Range Interpretation Comments Calcium Lvl (test code = Calcium Lvl) 8.8 8.5-10.5 [facility]2015-01-12 19:24:00 Test Item Value Reference Range Interpretation Comments CO2 (test code = CO2) 28 24-32 [place] [id number] 19:24:00 Test Item Value Reference Range Interpretation Comments Chloride Lvl (test code = Chloride Lvl) 107 95-109 [facility]2015-01-12 19:24:00 Test Item Value Reference Range Interpretation Comments Potassium Lvl (test code = Potassium 3.9 3.5-5.1 Lvl) [facility]2015-01-12 19:24:00 Test Item Value Reference Range Interpretation Comments Glucose Lvl (test code = Glucose Lvl) 90 70-99 [facility]2015-01-12 19:24:00 Test Item Value Reference Range Interpretation Comments Sodium Lvl (test code = Sodium Lvl) 138 135-145 [facility]2015-01-12 19:24:00 Test Item Value Reference Range Interpretation Comments BUN (test code = BUN) 7 7-22 [facility]2015-01-12 19:24:00 Test Item Value Reference Range Interpretation Comments Creatinine Lvl (test code = Creatinine 0.7 0.5-1.4 Lvl) [facility]2015-01-12 19:24:00 Test Item Value Reference Range Interpretation Comments ALT (test code = ALT) 23 See_Comment [Auto mated message] The system which ge nerated this result transmit gaye reference range : <=65. The reference range was not used to interpr et this result as satish l/abnormal. [facility]2015-01-12 19:24:00 Test Item Value Reference Range Interpretation Comments AST (test code = AST) 12 See_Comment [Auto mated message] The system which ge nerated this result transmit gaye reference range : <=37. The reference range was not used to interpr et this result as satish l/abnormal. [place] [id number] 19:24:00 Test Item Value Reference Range Interpretation Comments Albumin Lvl (test code = Albumin Lvl) 3.8 3.5-5.0 [facility]2015-01-12 19:24:00 Test Item Value Reference Range Interpretation Comments Total Protein (test code = Total 8.0 6.4-8.4 Protein) [facility]2015-01-12 19:24:00 Test Item Value Reference Range Interpretation Comments A/G Ratio (test code = A/G Ratio) 0.9 0.7-1.6 [facility]2015-01-12 19:24:00 Test Item Value Reference Range Interpretation Comments AGAP (test code = AGAP) 6.9 10.0-20.0 [facility]2015-01-12 19:24:00 Test Item Value Reference Range Interpretation Comments B/C Ratio (test code = B/C Ratio) 10 6-25 [facility]2015-01-12 19:24:00 Test Item Value Reference Range Interpretation Comments Globulin (test code = Globulin) 4.2 2.0-4.0 [id number] 19:24:00 Test Item Value Reference Range Interpretation Comments S Preg (test code = S Negative *NA*(08/24/14 Preg) 1:24 PM) [facility]ZHZOPMUGO2137[facility]-93 19:24:00 Test Item Value Reference Range Interpretation Comments WBC (test code = WBC) 11.3 3.7-10.4 [facility] HospitalNzknlqlDJYHFBVJNL3203-68-19 19:24:00 Test Item Value Reference Range Interpretation Comments RBC (test code = RBC) 4.75 4.20-5.40 [facility] HospitalRwstczsMQVDVUOKLY2868-26-85 19:24:00 Test Item Value Reference Range Interpretation Comments Platelet (test code = Platelet) 402 133-450 [facility] HospitalVigyzfqLNAMOXDGZV3759-31-14 19:24:00 Test Item Value Reference Range Interpretation Comments MCV (test code = MCV) 89.9 80.0-98.0 [facility] HospitalPdrxslkNUBFYIBPZJ4245-48-52 19:24:00 Test Item Value Reference Range Interpretation Comments Hct (test code = Hct) 42.7 36.0-48.0 [facility] HospitalWbbbtsiZVTKOFDMFP2066-98-75 19:24:00 Test Item Value Reference Range Interpretation Comments Hgb (test code = Hgb) 14.5 12.0-16.0 [facility] HospitalVrcokyuFTQYKIYOBR6972-20-28 19:24:00 Test Item Value Reference Range Interpretation Comments RDW (test code = RDW) 13.5 11.5-14.5 [facility] HospitalUndhvhmSKDNRKFBMR3967-72-08 19:24:00 Test Item Value Reference Range Interpretation Comments MCHC (test code = MCHC) 34.0 32.0-36.0 [facility] HospitalLrhtmdqOAWJJNEXPC2704-43-60 19:24:00 Test Item Value Reference Range Interpretation Comments MCH (test code = MCH) 30.6 pg 27.0-31.0 [facility] HospitalXratkeyRNUCWXRNAC2050-09-31 19:24:00 Test Item Value Reference Range Interpretation Comments MPV (test code = MPV) 8.1 7.4-10.4 [facility] HospitalWumrldbIQUEIVFFDL3358-14-97 19:24:00 Test Item Value Reference Range Interpretation Comments Stomatocyte (test code = Stomatocyte) Slight [facility] HospitalKrqvpfuFSMFHZCIJD7627-82-70 19:24:00 Test Item Value Reference Range Interpretation Comments Basophils # (test code 0.1 See_Comment [Aut omated message] The = Basophils #) system which generated this result tra nsmitted reference range : <=0.2. The reference r ozzy was not used to int erpret this result as normal/abnormal . [facility] HospitalXclyzwtWYZUOUKLAM1058-91-87 19:24:00 Test Item Value Reference Range Interpretation Comments Eosinophils # (test code 0.2 See_Comment [A utomated message] The = Eosinophils #) system whic h generated this result tra nsmitted reference range : <=0.5. The reference r ozzy was not used to int erpret this result as normal/abnormal . [facility] HospitalXwlqltiQAVXRPEHZX4481-02-68 19:24:00 Test Item Value Reference Range Interpretation Comments Hypochrom (test code = 1+ (08/24/14 1:24 PM) Hypochrom) [facility] HospitalMiwyvftIGYACVYTCQ1870-02-24 19:24:00 Test Item Value Reference Range Interpretation Comments Lymphocytes # (test code = Lymphocytes 2.8 1.0-5.5 #) [facility] HospitalCulogxpZDRKOOGVOG6305-71-09 19:24:00 Test Item Value Reference Range Interpretation Comments Segs-Bands # (test code = Segs-Bands #) 8.1 1.5-8.1 [facility] Hospit[id number] 19:24:00 Test Item Value Reference Range Interpretation Comments Monocytes # (test code 0.2 See_Comment [Aut omated message] The = Monocytes #) system which generated this result tra nsmitted reference range : <=0.8. The reference r ozzy was not used to int erpret this result as normal/abnormal . [facility] HospitalEmfasswOKDJZWVVKP5041-70-32 19:24:00 Test Item Value Reference Range Interpretation Comments Lymphocytes (test code = Lymphocytes) 24.5 20.0-40.0 [facility] HospitalLpcvofaHYPYVJCNFV4227-09-71 19:24:00 Test Item Value Reference Range Interpretation Comments Segs (test code = Segs) 71.8 45.0-75.0 [facility] HospitalQiaxdzgGFWXHKGQMG7947-41-16 19:24:00 Test Item Value Reference Range Interpretation Comments Basophils (test code = 0.6 See_Comment [Aut omated message] The Basophils) system which ge nerated this result tra nsmitted reference range : <=1.0. The reference r ozzy was not used to int erpret this result as normal/abnormal . [facility] HospitalPnevlocPSSZVNZPRG6921-45-84 19:24:00 Test Item Value Reference Range Interpretation Comments Monocytes (test code = Monocytes) 1.5 2.0-12.0 [facility] HospitalQwaagiwKGZPHETCMD8687-65-95 19:24:00 Test Item Value Reference Range Interpretation Comments Eosinophils (test code = 1.6 See_Comment [A utomated message] The Eosinophils) system which ge nerated this result tra nsmitted reference range : <=4.0. The reference r ozzy was not used to int erpret this result as normal/abnormal . [facility] HospitalAsqhntmALKLMUDHOM3272-78-83 19:24:00 Test Item Value Reference Range Interpretation Comments Plt Morph (test code = Normal (08/24/14 1:24 Plt Morph) PM) [facility] AND [id number] 19:24:00 Test Item Value Reference Range Interpretation Comments UA Sq Epi (test code = UA Sq Occasional /LPF Epi) [facility] AND [id number] 19:24:00 Test Item Value Reference Range Interpretation Comments UA Bacteria (test code = UA Occasional /HPF Bacteria) [facility] AND [id number] 19:24:00 Test Item Value Reference Range Interpretation Comments UA Mucus (test code = None Seen (08/24/14 UA Mucus) 1:24 PM) [facility] AND [id number] 19:24:00 Test Item Value Reference Range Interpretation Comments UA WBC (test code = UA WBC) 0-2 /HPF [facility] AND [id number] 19:24:00 Test Item Value Reference Range Interpretation Comments UA RBC (test code = 0-2 /HPF See_Comment [Automa gaye message] The UA RBC) system which ge nerated this result tra nsmitted reference range : <=2. The reference range was not used to interpr et this result as satish l/abnormal. [facility] AND [id number] 19:24:00 Test Item Value Reference Range Interpretation Comments UA Leuk Est (test Moderate *ABN*(08/24/14 code = UA Leuk Est) 1:24 PM) [facility] AND [id number] 19:24:00 Test Item Value Reference Range Interpretation Comments UA Nitrite (test code Negative (08/24/14 1:24 = UA Nitrite) PM) [facility] AND [id number] 19:24:00 Test Item Value Reference Range Interpretation Comments UA Urobilinogen (test code = UA 0.2 0.1-1.0 Urobilinogen) [facility] AND [id number] 19:24:00 Test Item Value Reference Range Interpretation Comments UA Ketones (test code Negative *NA*(08/24/14 = UA Ketones) 1:24 PM) [facility] AND [id number] 19:24:00 Test Item Value Reference Range Interpretation Comments UA Blood (test code = Negative (08/24/14 1:24 UA Blood) PM) [facility] AND [id number] 19:24:00 Test Item Value Reference Range Interpretation Comments UA Bili (test code = Negative *NA*(08/24/14 UA Bili) 1:24 PM) [facility] AND [id number] 19:24:00 Test Item Value Reference Range Interpretation Comments UA Color (test code = Yellow *NA*(08/24/14 UA Color) 1:24 PM) [facility] AND [id number] 19:24:00 Test Item Value Reference Range Interpretation Comments UA Glucose (test code Negative (08/24/14 1:24 = UA Glucose) PM) [facility] AND [id number] 19:24:00 Test Item Value Reference Range Interpretation Comments UA Protein (test code Negative (08/24/14 1:24 = UA Protein) PM) [facility] AND [id number] 19:24:00 Test Item Value Reference Range Interpretation Comments UA pH (test code = UA pH) 6.0 1 5.0-8.0 [facility] AND [id number] 19:24:00 Test Item Value Reference Range Interpretation Comments UA Spec Grav (test code *NA*(08/24/14 1:24 PM) = UA Spec Grav) [facility] AND [id number] 19:24:00 Test Item Value Reference Range Interpretation Comments UA Turbidity (test code = Clear (08/24/14 1:24 UA Turbidity) PM) [facility]2015-01-12 19:24:00 Test Item Value Reference Range Interpretation Comments Lipase Lvl (test code = Lipase Lvl) 104 73-393 [facility]2015-01-12 19:24:00 Test Item Value Reference Range Interpretation Comments eGFR (test code = eGFR) 109 [facility]2015-01-12 19:24:00 Test Item Value Reference Range Interpretation Comments Bili Total (test code = Bili Total) 0.6 0.2-1.3 [facility]2015-01-12 19:24:00 Test Item Value Reference Range Interpretation Comments Alk Phos (test code = Alk Phos) 72 39-136 [facility]2015-01-12 19:24:00 Test Item Value Reference Range Interpretation Comments Calcium Lvl (test code = Calcium Lvl) 8.8 8.5-10.5 [facility]2015-01-12 19:24:00 Test Item Value Reference Range Interpretation Comments CO2 (test code = CO2) 28 24-32 [facility]2015-01-12 19:24:00 Test Item Value Reference Range Interpretation Comments Chloride Lvl (test code = Chloride Lvl) 107 95-109 [facility]2015-01-12 19:24:00 Test Item Value Reference Range Interpretation Comments Potassium Lvl (test code = Potassium 3.9 3.5-5.1 Lvl) [facility]2015-01-12 19:24:00 Test Item Value Reference Range Interpretation Comments Glucose Lvl (test code = Glucose Lvl) 90 70-99 [facility]2015-01-12 19:24:00 Test Item Value Reference Range Interpretation Comments Sodium Lvl (test code = Sodium Lvl) 138 135-145 [facility]2015-01-12 19:24:00 Test Item Value Reference Range Interpretation Comments BUN (test code = BUN) 7 7-22 [facility]2015-01-12 19:24:00 Test Item Value Reference Range Interpretation Comments Creatinine Lvl (test code = Creatinine 0.7 0.5-1.4 Lvl) [facility]2015-01-12 19:24:00 Test Item Value Reference Range Interpretation Comments ALT (test code = ALT) 23 See_Comment [Auto mated message] The system which ge nerated this result transmit gaye reference range : <=65. The reference range was not used to interpr et this result as satish l/abnormal. [facility]2015-01-12 19:24:00 Test Item Value Reference Range Interpretation Comments AST (test code = AST) 12 See_Comment [Auto mated message] The system which ge nerated this result transmit gaye reference range : <=37. The reference range was not used to interpr et this result as satish l/abnormal. [facility]2015-01-12 19:24:00 Test Item Value Reference Range Interpretation Comments Albumin Lvl (test code = Albumin Lvl) 3.8 3.5-5.0 [facility]2015-01-12 19:24:00 Test Item Value Reference Range Interpretation Comments Total Protein (test code = Total 8.0 6.4-8.4 Protein) [facility]2015-01-12 19:24:00 Test Item Value Reference Range Interpretation Comments A/G Ratio (test code = A/G Ratio) 0.9 0.7-1.6 [facility]2015-01-12 19:24:00 Test Item Value Reference Range Interpretation Comments AGAP (test code = AGAP) 6.9 10.0-20.0 [facility]2015-01-12 19:24:00 Test Item Value Reference Range Interpretation Comments B/C Ratio (test code = B/C Ratio) 10 6-25 [facility] [id number] 19:24:00 Test Item Value Reference Range Interpretation Comments Globulin (test code = Globulin) 4.2 2.0-4.0 [facility]Yc[facility]ckhEJPXCYJGPGSAH2797-40-49 19:24:00 Test Item Value Reference Range Interpretation Comments S Preg (test code = S Negative *NA*(08/24/14 Preg) 1:24 PM) [facility]NrysihhGDENSEEQMB3255-67-74 19:24:00 Test Item Value Reference Range Interpretation Comments WBC (test code = WBC) 11.3 3.7-10.4 [facility] HospitalGduggcjNXTPLKGPYS3285-70-51 19:24:00 Test Item Value Reference Range Interpretation Comments RBC (test code = RBC) 4.75 4.20-5.40 [facility] HospitalBlmnqdwFVFKKCGOIJ2939-12-22 19:24:00 Test Item Value Reference Range Interpretation Comments Platelet (test code = Platelet) 402 133-450 [facility] HospitalNwnijgdCUSEUCLLHX5253-85-43 19:24:00 Test Item Value Reference Range Interpretation Comments MCV (test code = MCV) 89.9 80.0-98.0 [facility] HospitalEznrvjcLWIITUBFTV5671-41-19 19:24:00 Test Item Value Reference Range Interpretation Comments Hct (test code = Hct) 42.7 36.0-48.0 [facility] HospitalTbtisgyPJDDUFCHQV6246-54-03 19:24:00 Test Item Value Reference Range Interpretation Comments Hgb (test code = Hgb) 14.5 12.0-16.0 [facility] HospitalZtbsclpZJPKUDHTFU9823-57-50 19:24:00 Test Item Value Reference Range Interpretation Comments RDW (test code = RDW) 13.5 11.5-14.5 [facility] HospitalZntecbvAQYZNATIVX9654-89-65 19:24:00 Test Item Value Reference Range Interpretation Comments MCHC (test code = MCHC) 34.0 32.0-36.0 [facility] HospitalQiyzwilRWFJOBHFKZ3520-94-58 19:24:00 Test Item Value Reference Range Interpretation Comments MCH (test code = MCH) 30.6 pg 27.0-31.0 [facility] HospitalBmcscbyANYGSGPXOJ3363-05-25 19:24:00 Test Item Value Reference Range Interpretation Comments MPV (test code = MPV) 8.1 7.4-10.4 [facility] HospitalQbymbosCFLTNVWRWP1341-38-48 19:24:00 Test Item Value Reference Range Interpretation Comments Stomatocyte (test code = Stomatocyte) Slight [facility] HospitalWxtqfvmTVKKVWYRFC2778-65-20 19:24:00 Test Item Value Reference Range Interpretation Comments Basophils # (test code 0.1 See_Comment [Aut omated message] The = Basophils #) system which generated this result tra nsmitted reference range : <=0.2. The reference r ozzy was not used to int erpret this result as normal/abnormal . [facility] HospitalDpncddqTIJHIDAGSN4802-47-48 19:24:00 Test Item Value Reference Range Interpretation Comments Eosinophils # (test code 0.2 See_Comment [A utomated message] The = Eosinophils #) system whic h generated this result tra nsmitted reference range : <=0.5. The reference r ozzy was not used to int erpret this result as normal/abnormal . [facility] HospitalKnlvrhhIPIMXVDWCB4495-45-01 19:24:00 Test Item Value Reference Range Interpretation Comments Hypochrom (test code = 1+ (08/24/14 1:24 PM) Hypochrom) [facility] HospitalXnlgrwsNZPFKWQFDV2386-70-59 19:24:00 Test Item Value Reference Range Interpretation Comments Lymphocytes # (test code = Lymphocytes 2.8 1.0-5.5 #) [facility] HospitalSgbnzjySLKMXMATOV0394-74-20 19:24:00 Test Item Value Reference Range Interpretation Comments Segs-Bands # (test code = Segs-Bands #) 8.1 1.5-8.1 [facility] HospitalNrshqivKJXLXAAKXV7255-86-04 19:24:00 Test Item Value Reference Range Interpretation Comments Monocytes # (test code 0.2 See_Comment [Aut omated message] The = Monocytes #) system which generated this result tra nsmitted reference range : <=0.8. The reference r ozzy was not used to int erpret this result as normal/abnormal . [facility] HospitalPziqkylKQNPOXRNUF5562-59-16 19:24:00 Test Item Value Reference Range Interpretation Comments Lymphocytes (test code = Lymphocytes) 24.5 20.0-40.0 [facility] HospitalJbppcdfSICKDQVQLF2269-52-21 19:24:00 Test Item Value Reference Range Interpretation Comments Segs (test code = Segs) 71.8 45.0-75.0 [facility] HospitalWiqbffkWMOJKGQLEX0724-88-87 19:24:00 Test Item Value Reference Range Interpretation Comments Basophils (test code = 0.6 See_Comment [Aut omated message] The Basophils) system which ge nerated this result tra nsmitted reference range : <=1.0. The reference r ozzy was not used to int erpret this result as normal/abnormal . [facility] HospitalGonspqbTZNMZYPMZL9962-65-76 19:24:00 Test Item Value Reference Range Interpretation Comments Monocytes (test code = Monocytes) 1.5 2.0-12.0 [facility] HospitalIlsntacUINHGCWQPC9428-87-27 19:24:00 Test Item Value Reference Range Interpretation Comments Eosinophils (test code = 1.6 See_Comment [A utomated message] The Eosinophils) system which ge nerated this result tra nsmitted reference range : <=4.0. The reference r ozzy was not used to int erpret this result as normal/abnormal . [facility] HospitalGhlyhgjSRDJQGPCST7718-10-72 19:24:00 Test Item Value Reference Range Interpretation Comments Plt Morph (test code = Normal (08/24/14 1:24 Plt Morph) PM) [facility] AND [id number] 19:24:00 Test Item Value Reference Range Interpretation Comments UA Sq Epi (test code = UA Sq Occasional /LPF Epi) [facility] AND [id number] 19:24:00 Test Item Value Reference Range Interpretation Comments UA Bacteria (test code = UA Occasional /HPF Bacteria) [facility] AND [id number] 19:24:00 Test Item Value Reference Range Interpretation Comments UA Mucus (test code = None Seen (08/24/14 UA Mucus) 1:24 PM) [facility] AND [id number] 19:24:00 Test Item Value Reference Range Interpretation Comments UA WBC (test code = UA WBC) 0-2 /HPF [facility] AND [id number] 19:24:00 Test Item Value Reference Range Interpretation Comments UA RBC (test code = 0-2 /HPF See_Comment [Automa gaye message] The UA RBC) system which ge nerated this result tra nsmitted reference range : <=2. The reference range was not used to interpr et this result as satish l/abnormal. [facility] AND [id number] 19:24:00 Test Item Value Reference Range Interpretation Comments UA Leuk Est (test Moderate *ABN*(08/24/14 code = UA Leuk Est) 1:24 PM) [facility] AND [id number] 19:24:00 Test Item Value Reference Range Interpretation Comments UA Nitrite (test code Negative (08/24/14 1:24 = UA Nitrite) PM) [facility] AND [id number] 19:24:00 Test Item Value Reference Range Interpretation Comments UA Urobilinogen (test code = UA 0.2 0.1-1.0 Urobilinogen) [facility] AND [id number] 19:24:00 Test Item Value Reference Range Interpretation Comments UA Ketones (test code Negative *NA*(08/24/14 = UA Ketones) 1:24 PM) [facility] AND [id number] 19:24:00 Test Item Value Reference Range Interpretation Comments UA Blood (test code = Negative (08/24/14 1:24 UA Blood) PM) [facility] AND [id number] 19:24:00 Test Item Value Reference Range Interpretation Comments UA Bili (test code = Negative *NA*(08/24/14 UA Bili) 1:24 PM) [facility] AND [id number] 19:24:00 Test Item Value Reference Range Interpretation Comments UA Color (test code = Yellow *NA*(08/24/14 UA Color) 1:24 PM) [facility] AND [id number] 19:24:00 Test Item Value Reference Range Interpretation Comments UA Glucose (test code Negative (08/24/14 1:24 = UA Glucose) PM) [facility] AND [id number] 19:24:00 Test Item Value Reference Range Interpretation Comments UA Protein (test code Negative (08/24/14 1:24 = UA Protein) PM) [facility] AND [id number] 19:24:00 Test Item Value Reference Range Interpretation Comments UA pH (test code = UA pH) 6.0 1 5.0-8.0 [facility] AND [id number] 19:24:00 Test Item Value Reference Range Interpretation Comments UA Spec Grav (test code *NA*(08/24/14 1:24 PM) = UA Spec Grav) [facility] AND [id number] 19:24:00 Test Item Value Reference Range Interpretation Comments UA Turbidity (test code = Clear (08/24/14 1:24 UA Turbidity) PM) [facility]2015-01-12 19:24:00 Test Item Value Reference Range Interpretation Comments Lipase Lvl (test code = Lipase Lvl) 104 73-393 [facility]2015-01-12 19:24:00 Test Item Value Reference Range Interpretation Comments eGFR (test code = eGFR) 109 [facility]2015-01-12 19:24:00 Test Item Value Reference Range Interpretation Comments Bili Total (test code = Bili Total) 0.6 0.2-1.3 [facility]2015-01-12 19:24:00 Test Item Value Reference Range Interpretation Comments Alk Phos (test code = Alk Phos) 72 39-136 [facility]2015-01-12 19:24:00 Test Item Value Reference Range Interpretation Comments Calcium Lvl (test code = Calcium Lvl) 8.8 8.5-10.5 [facility]2015-01-12 19:24:00 Test Item Value Reference Range Interpretation Comments CO2 (test code = CO2) 28 24-32 [facility]2015-01-12 19:24:00 Test Item Value Reference Range Interpretation Comments Chloride Lvl (test code = Chloride Lvl) 107 95-109 [facility]2015-01-12 19:24:00 Test Item Value Reference Range Interpretation Comments Potassium Lvl (test code = Potassium 3.9 3.5-5.1 Lvl) [facility]2015-01-12 19:24:00 Test Item Value Reference Range Interpretation Comments Glucose Lvl (test code = Glucose Lvl) 90 70-99 [facility]2015-01-12 19:24:00 Test Item Value Reference Range Interpretation Comments Sodium Lvl (test code = Sodium Lvl) 138 135-145 [facility]2015-01-12 19:24:00 Test Item Value Reference Range Interpretation Comments BUN (test code = BUN) 7 7-22 [facility]2015-01-12 19:24:00 Test Item Value Reference Range Interpretation Comments Creatinine Lvl (test code = Creatinine 0.7 0.5-1.4 Lvl) [facility]2015-01-12 19:24:00 Test Item Value Reference Range Interpretation Comments ALT (test code = ALT) 23 See_Comment [Auto mated message] The system which ge nerated this result transmit gaye reference range : <=65. The reference range was not used to interpr et this result as satish l/abnormal. [facility]2015-01-12 19:24:00 Test Item Value Reference Range Interpretation Comments AST (test code = AST) 12 See_Comment [Auto mated message] The system which ge nerated this result transmit gaye reference range : <=37. The reference range was not used to interpr et this result as satish l/abnormal. [facility]2015-01-12 19:24:00 Test Item Value Reference Range Interpretation Comments Albumin Lvl (test code = Albumin Lvl) 3.8 3.5-5.0 [facility]2015-01-12 19:24:00 Test Item Value Reference Range Interpretation Comments Total Protein (test code = Total 8.0 6.4-8.4 Protein) [facility]2015-01-12 19:24:00 Test Item Value Reference Range Interpretation Comments A/G Ratio (test code = A/G Ratio) 0.9 0.7-1.6 [facility]2015-01-12 19:24:00 Test Item Value Reference Range Interpretation Comments AGAP (test code = AGAP) 6.9 10.0-20.0 [facility]2015-01-12 19:24:00 Test Item Value Reference Range Interpretation Comments B/C Ratio (test code = B/C Ratio) 10 6-25 [facility]2015-01-12 19:24:00 Test Item Value Reference Range Interpretation Comments Globulin (test code = Globulin) 4.2 2.0-4.0 [id number] 19:24:00 Test Item Value Reference Range Interpretation Comments S Preg (test code = S Negative *NA*(08/24/14 Preg) 1:24 PM) [id number] 19:24:00 Test Item Value Reference Range Interpretation Comments WBC (test code = WBC) 11.3 3.7-10.4 [facility]X[id number] 19:24:00 Test Item Value Reference Range Interpretation Comments RBC (test code = RBC) 4.75 4.20-5.40 [facility]JdrukxcBKBGXLWXHQ9555-78-88 19:24:00 Test Item Value Reference Range Interpretation Comments Platelet (test code = Platelet) 402 133-450 [facility] HospitalWvkeblpNQZVBLVKKA7924-15-03 19:24:00 Test Item Value Reference Range Interpretation Comments MCV (test code = MCV) 89.9 80.0-98.0 [facility] HospitalQzvxjysGQCMESBRLW5320-90-91 19:24:00 Test Item Value Reference Range Interpretation Comments Hct (test code = Hct) 42.7 36.0-48.0 [facility] HospitalVkdozhnJYZWOYXVVF6279-57-92 19:24:00 Test Item Value Reference Range Interpretation Comments Hgb (test code = Hgb) 14.5 12.0-16.0 [facility] HospitalMxppfnsKYOEGNKITL3683-53-55 19:24:00 Test Item Value Reference Range Interpretation Comments RDW (test code = RDW) 13.5 11.5-14.5 [facility] HospitalKiuwphcLTSKSKCEGK4469-73-59 19:24:00 Test Item Value Reference Range Interpretation Comments MCHC (test code = MCHC) 34.0 32.0-36.0 [facility] HospitalEhkizqyARAZOVRYYZ7426-45-59 19:24:00 Test Item Value Reference Range Interpretation Comments MCH (test code = MCH) 30.6 pg 27.0-31.0 [facility] HospitalFhxepiySURAIOBLNM5300-25-25 19:24:00 Test Item Value Reference Range Interpretation Comments MPV (test code = MPV) 8.1 7.4-10.4 [facility] HospitalNsliujcYPAXHXAWSO7939-17-38 19:24:00 Test Item Value Reference Range Interpretation Comments Stomatocyte (test code = Stomatocyte) Slight [facility] HospitalTyiaoexFBOQDBGPHG5987-11-36 19:24:00 Test Item Value Reference Range Interpretation Comments Basophils # (test code 0.1 See_Comment [Aut omated message] The = Basophils #) system which generated this result tra nsmitted reference range : <=0.2. The reference r ozzy was not used to int erpret this result as normal/abnormal . [facility] HospitalPrwrwvvXLBECMHKDY7568-43-30 19:24:00 Test Item Value Reference Range Interpretation Comments Eosinophils # (test code 0.2 See_Comment [A utomated message] The = Eosinophils #) system whic h generated this result tra nsmitted reference range : <=0.5. The reference r ozzy was not used to int erpret this result as normal/abnormal . [facility] HospitalGhtdytnOICYBQJTVL5456-29-26 19:24:00 Test Item Value Reference Range Interpretation Comments Hypochrom (test code = 1+ (08/24/14 1:24 PM) Hypochrom) [facility] HospitalNlazihzIAZISHBWKL4228-46-70 19:24:00 Test Item Value Reference Range Interpretation Comments Lymphocytes # (test code = Lymphocytes 2.8 1.0-5.5 #) [facility] HospitalYbvbuyeUODSSSHFMF7759-39-80 19:24:00 Test Item Value Reference Range Interpretation Comments Segs-Bands # (test code = Segs-Bands #) 8.1 1.5-8.1 [facility] HospitalLkgguksGTGVFPQOZA6412-82-05 19:24:00 Test Item Value Reference Range Interpretation Comments Monocytes # (test code 0.2 See_Comment [Aut omated message] The = Monocytes #) system which generated this result tra nsmitted reference range : <=0.8. The reference r ozzy was not used to int erpret this result as normal/abnormal . [facility] HospitalSmrmkgnMBVOPUJUOF5909-94-40 19:24:00 Test Item Value Reference Range Interpretation Comments Lymphocytes (test code = Lymphocytes) 24.5 20.0-40.0 [facility] HospitalXpvmkfzUJMJDPLPMH9495-73-64 19:24:00 Test Item Value Reference Range Interpretation Comments Segs (test code = Segs) 71.8 45.0-75.0 [facility] HospitalNrjotarCSEAYOBZQQ6865-93-68 19:24:00 Test Item Value Reference Range Interpretation Comments Basophils (test code = 0.6 See_Comment [Aut omated message] The Basophils) system which ge nerated this result tra nsmitted reference range : <=1.0. The reference r ozzy was not used to int erpret this result as normal/abnormal . [facility] HospitalQbvpfbaJOSUMIBRYY1926-49-60 19:24:00 Test Item Value Reference Range Interpretation Comments Monocytes (test code = Monocytes) 1.5 2.0-12.0 [facility] HospitalTbnbefqIBHZDEDTQK7409-96-28 19:24:00 Test Item Value Reference Range Interpretation Comments Eosinophils (test code = 1.6 See_Comment [A utomated message] The Eosinophils) system which ge nerated this result tra nsmitted reference range : <=4.0. The reference r ozzy was not used to int erpret this result as normal/abnormal . [facility] Hospit[id number] 19:24:00 Test Item Value Reference Range Interpretation Comments Plt Morph (test code = Normal (08/24/14 1:24 Plt Morph) PM) [facility] AND [id number] 19:24:00 Test Item Value Reference Range Interpretation Comments UA Sq Epi (test code = UA Sq Occasional /LPF Epi) [facility] AND [id number] 19:24:00 Test Item Value Reference Range Interpretation Comments UA Bacteria (test code = UA Occasional /HPF Bacteria) [facility] AND [id number] 19:24:00 Test Item Value Reference Range Interpretation Comments UA Mucus (test code = None Seen (08/24/14 UA Mucus) 1:24 PM) [facility] AND [id number] 19:24:00 Test Item Value Reference Range Interpretation Comments UA WBC (test code = UA WBC) 0-2 /HPF [facility] AND [id number] 19:24:00 Test Item Value Reference Range Interpretation Comments UA RBC (test code = 0-2 /HPF See_Comment [Automa gaye message] The UA RBC) system which ge nerated this result tra nsmitted reference range : <=2. The reference range was not used to interpr et this result as satish l/abnormal. [facility] AND [id number] 19:24:00 Test Item Value Reference Range Interpretation Comments UA Leuk Est (test Moderate *ABN*(08/24/14 code = UA Leuk Est) 1:24 PM) [facility] AND [id number] 19:24:00 Test Item Value Reference Range Interpretation Comments UA Nitrite (test code Negative (08/24/14 1:24 = UA Nitrite) PM) [facility] [id number] 19:24:00 Test Item Value Reference Range Interpretation Comments UA Urobilinogen (test code = UA 0.2 0.1-1.0 Urobilinogen) [facility] [id number] 19:24:00 Test Item Value Reference Range Interpretation Comments UA Ketones (test code Negative *NA*(08/24/14 = UA Ketones) 1:24 PM) [facility] [id number] 19:24:00 Test Item Value Reference Range Interpretation Comments UA Blood (test code = Negative (08/24/14 1:24 UA Blood) PM) [facility] [id number] 19:24:00 Test Item Value Reference Range Interpretation Comments UA Bili (test code = Negative *NA*(08/24/14 UA Bili) 1:24 PM) [facility] [id number] 19:24:00 Test Item Value Reference Range Interpretation Comments UA Color (test code = Yellow *NA*(08/24/14 UA Color) 1:24 PM) [facility] [id number] 19:24:00 Test Item Value Reference Range Interpretation Comments UA Glucose (test code Negative (08/24/14 1:24 = UA Glucose) PM) [facility] [id number] 19:24:00 Test Item Value Reference Range Interpretation Comments UA Protein (test code Negative (08/24/14 1:24 = UA Protein) PM) [facility] AND [id number] 19:24:00 Test Item Value Reference Range Interpretation Comments UA pH (test code = UA pH) 6.0 1 5.0-8.0 [facility] [id number] 19:24:00 Test Item Value Reference Range Interpretation Comments UA Spec Grav (test code *NA*(08/24/14 1:24 PM) = UA Spec Grav) [facility] [id number] 19:24:00 Test Item Value Reference Range Interpretation Comments UA Turbidity (test code = Clear (08/24/14 1:24 UA Turbidity) PM) [facility] [id number] 19:24:00 Test Item Value Reference Range Interpretation Comments Lipase Lvl (test code = Lipase Lvl) 104 73-393 [facility]2015-01-12 19:24:00 Test Item Value Reference Range Interpretation Comments eGFR (test code = eGFR) 109 [facility]2015-01-12 19:24:00 Test Item Value Reference Range Interpretation Comments Bili Total (test code = Bili Total) 0.6 0.2-1.3 [facility]2015-01-12 19:24:00 Test Item Value Reference Range Interpretation Comments Alk Phos (test code = Alk Phos) 72 39-136 [facility]2015-01-12 19:24:00 Test Item Value Reference Range Interpretation Comments Calcium Lvl (test code = Calcium Lvl) 8.8 8.5-10.5 [facility]2015-01-12 19:24:00 Test Item Value Reference Range Interpretation Comments CO2 (test code = CO2) 28 24-32 [facility]2015-01-12 19:24:00 Test Item Value Reference Range Interpretation Comments Chloride Lvl (test code = Chloride Lvl) 107 95-109 [facility]2015-01-12 19:24:00 Test Item Value Reference Range Interpretation Comments Potassium Lvl (test code = Potassium 3.9 3.5-5.1 Lvl) [facility]2015-01-12 19:24:00 Test Item Value Reference Range Interpretation Comments Glucose Lvl (test code = Glucose Lvl) 90 70-99 [facility]2015-01-12 19:24:00 Test Item Value Reference Range Interpretation Comments Sodium Lvl (test code = Sodium Lvl) 138 135-145 [facility]2015-01-12 19:24:00 Test Item Value Reference Range Interpretation Comments BUN (test code = BUN) 7 7-22 [facility]2015-01-12 19:24:00 Test Item Value Reference Range Interpretation Comments Creatinine Lvl (test code = Creatinine 0.7 0.5-1.4 Lvl) [facility]2015-01-12 19:24:00 Test Item Value Reference Range Interpretation Comments ALT (test code = ALT) 23 See_Comment [Auto mated message] The system which ge nerated this result transmit gaye reference range : <=65. The reference range was not used to interpr et this result as satish l/abnormal. [facility]2015-01-12 19:24:00 Test Item Value Reference Range Interpretation Comments AST (test code = AST) 12 See_Comment [Auto mated message] The system which ge nerated this result transmit gaye reference range : <=37. The reference range was not used to interpr et this result as satish l/abnormal. [facility]2015-01-12 19:24:00 Test Item Value Reference Range Interpretation Comments Albumin Lvl (test code = Albumin Lvl) 3.8 3.5-5.0 [facility]2015-01-12 19:24:00 Test Item Value Reference Range Interpretation Comments Total Protein (test code = Total 8.0 6.4-8.4 Protein) [facility]2015-01-12 19:24:00 Test Item Value Reference Range Interpretation Comments A/G Ratio (test code = A/G Ratio) 0.9 0.7-1.6 [facility]2015-01-12 19:24:00 Test Item Value Reference Range Interpretation Comments AGAP (test code = AGAP) 6.9 10.0-20.0 [facility]2015-01-12 19:24:00 Test Item Value Reference Range Interpretation Comments B/C Ratio (test code = B/C Ratio) 10 6-25 [facility]2015-01-12 19:24:00 Test Item Value Reference Range Interpretation Comments Globulin (test code = Globulin) 4.2 2.0-4.0 [id number] 19:24:00 Test Item Value Reference Range Interpretation Comments S Preg (test code = S Negative *NA*(08/24/14 Preg) 1:24 PM) [facility] Hospit[id number] 19:24:00 Test Item Value Reference Range Interpretation Comments WBC (test code = WBC) 11.3 3.7-10.4 [facility] HospitalWoblviiEJEXXEHWVB5471-89-58 19:24:00 Test Item Value Reference Range Interpretation Comments RBC (test code = RBC) 4.75 4.20-5.40 [facility] HospitalLjggkzzCRGCDOWDKV3589-82-95 19:24:00 Test Item Value Reference Range Interpretation Comments Platelet (test code = Platelet) 402 133-450 [facility] HospitalDdqlxiqYNIBXSXSFU4853-48-50 19:24:00 Test Item Value Reference Range Interpretation Comments MCV (test code = MCV) 89.9 80.0-98.0 [facility] HospitalLjgyanoPXMYRYKMAS6570-76-18 19:24:00 Test Item Value Reference Range Interpretation Comments Hct (test code = Hct) 42.7 36.0-48.0 [facility] HospitalIuylgdmCRBVKXMKDX2130-93-05 19:24:00 Test Item Value Reference Range Interpretation Comments Hgb (test code = Hgb) 14.5 12.0-16.0 [facility] HospitalQdsbagpQRZJXQZIVT1773-66-14 19:24:00 Test Item Value Reference Range Interpretation Comments RDW (test code = RDW) 13.5 11.5-14.5 [facility] HospitalQkwjzbjUQXHXJNUGH5523-66-20 19:24:00 Test Item Value Reference Range Interpretation Comments MCHC (test code = MCHC) 34.0 32.0-36.0 [facility] H[id number] 19:24:00 Test Item Value Reference Range Interpretation Comments MCH (test code = MCH) 30.6 pg 27.0-31.0 [facility] HospitalGjuzovfRWUACONKFO0509-65-25 19:24:00 Test Item Value Reference Range Interpretation Comments MPV (test code = MPV) 8.1 7.4-10.4 [facility] Hospit[id number] 19:24:00 Test Item Value Reference Range Interpretation Comments Stomatocyte (test code = Stomatocyte) Slight [facility] HospitalMbzqgstSYITRYKBJG7353-90-03 19:24:00 Test Item Value Reference Range Interpretation Comments Basophils # (test code 0.1 See_Comment [Aut omated message] The = Basophils #) system which generated this result tra nsmitted reference range : <=0.2. The reference r ozzy was not used to int erpret this result as normal/abnormal . [facility] HospitalHrntqmpTBVIFQURFH9360-60-18 19:24:00 Test Item Value Reference Range Interpretation Comments Eosinophils # (test code 0.2 See_Comment [A utomated message] The = Eosinophils #) system whic h generated this result tra nsmitted reference range : <=0.5. The reference r ozzy was not used to int erpret this result as normal/abnormal . [facility] HospitalZsfnuogHLJAVQYYUR6076-40-13 19:24:00 Test Item Value Reference Range Interpretation Comments Hypochrom (test code = 1+ (08/24/14 1:24 PM) Hypochrom) [facility] Hospit[id number] 19:24:00 Test Item Value Reference Range Interpretation Comments Lymphocytes # (test code = Lymphocytes 2.8 1.0-5.5 #) [facility] HospitalHgdyrfmZVEGSDFLRE5930-11-01 19:24:00 Test Item Value Reference Range Interpretation Comments Segs-Bands # (test code = Segs-Bands #) 8.1 1.5-8.1 [facility] H[id number] 19:24:00 Test Item Value Reference Range Interpretation Comments Monocytes # (test code 0.2 See_Comment [Aut omated message] The = Monocytes #) system which generated this result tra nsmitted reference range : <=0.8. The reference r ozzy was not used to int erpret this result as normal/abnormal . [facility] HospitalLhbbvnsTGDHQXCWFR9601-55-61 19:24:00 Test Item Value Reference Range Interpretation Comments Lymphocytes (test code = Lymphocytes) 24.5 20.0-40.0 [facility] HospitalDfxzzotLKRJCQUQZB2028-80-39 19:24:00 Test Item Value Reference Range Interpretation Comments Segs (test code = Segs) 71.8 45.0-75.0 [facility] HospitalMnnnhsqCGMELZLUPM2779-49-37 19:24:00 Test Item Value Reference Range Interpretation Comments Basophils (test code = 0.6 See_Comment [Aut omated message] The Basophils) system which ge nerated this result tra nsmitted reference range : <=1.0. The reference r ozzy was not used to int erpret this result as normal/abnormal . [facility] HospitalGcitjbxLDSEQEDKNK4385-74-42 19:24:00 Test Item Value Reference Range Interpretation Comments Monocytes (test code = Monocytes) 1.5 2.0-12.0 [facility] HospitalQbhgqydDFYXSDIOMF7574-22-90 19:24:00 Test Item Value Reference Range Interpretation Comments Eosinophils (test code = 1.6 See_Comment [A utomated message] The Eosinophils) system which ge nerated this result tra nsmitted reference range : <=4.0. The reference r ozzy was not used to int erpret this result as normal/abnormal . [facility] HospitalDzqfdkxLZQRHTFLAB0506-06-39 19:24:00 Test Item Value Reference Range Interpretation Comments Plt Morph (test code = Normal (08/24/14 1:24 Plt Morph) PM) [facility] AND [id number] 19:24:00 Test Item Value Reference Range Interpretation Comments UA Sq Epi (test code = UA Sq Occasional /LPF Epi) [facility] AND [id number] 19:24:00 Test Item Value Reference Range Interpretation Comments UA Bacteria (test code = UA Occasional /HPF Bacteria) [facility] AND [id number] 19:24:00 Test Item Value Reference Range Interpretation Comments UA Mucus (test code = None Seen (08/24/14 UA Mucus) 1:24 PM) [facility] AND [id number] 19:24:00 Test Item Value Reference Range Interpretation Comments UA WBC (test code = UA WBC) 0-2 /HPF [facility] AND [id number] 19:24:00 Test Item Value Reference Range Interpretation Comments UA RBC (test code = 0-2 /HPF See_Comment [Automa gaye message] The UA RBC) system which ge nerated this result tra nsmitted reference range : <=2. The reference range was not used to interpr et this result as satish l/abnormal. [facility] AND [id number] 19:24:00 Test Item Value Reference Range Interpretation Comments UA Leuk Est (test Moderate *ABN*(08/24/14 code = UA Leuk Est) 1:24 PM) [facility] AND [id number] 19:24:00 Test Item Value Reference Range Interpretation Comments UA Nitrite (test code Negative (08/24/14 1:24 = UA Nitrite) PM) [facility] AND [id number] 19:24:00 Test Item Value Reference Range Interpretation Comments UA Urobilinogen (test code = UA 0.2 0.1-1.0 Urobilinogen) [facility] AND [id number] 19:24:00 Test Item Value Reference Range Interpretation Comments UA Ketones (test code Negative *NA*(08/24/14 = UA Ketones) 1:24 PM) [facility] AND [id number] 19:24:00 Test Item Value Reference Range Interpretation Comments UA Blood (test code = Negative (08/24/14 1:24 UA Blood) PM) [facility] AND [id number] 19:24:00 Test Item Value Reference Range Interpretation Comments UA Bili (test code = Negative *NA*(08/24/14 UA Bili) 1:24 PM) [facility] AND [id number] 19:24:00 Test Item Value Reference Range Interpretation Comments UA Color (test code = Yellow *NA*(08/24/14 UA Color) 1:24 PM) [facility] AND [id number] 19:24:00 Test Item Value Reference Range Interpretation Comments UA Glucose (test code Negative (08/24/14 1:24 = UA Glucose) PM) [facility] AND [id number] 19:24:00 Test Item Value Reference Range Interpretation Comments UA Protein (test code Negative (08/24/14 1:24 = UA Protein) PM) [facility] AND [id number] 19:24:00 Test Item Value Reference Range Interpretation Comments UA pH (test code = UA pH) 6.0 1 5.0-8.0 [facility] AND [id number] 19:24:00 Test Item Value Reference Range Interpretation Comments UA Spec Grav (test code *NA*(08/24/14 1:24 PM) = UA Spec Grav) [facility] AND [id number] 19:24:00 Test Item Value Reference Range Interpretation Comments UA Turbidity (test code = Clear (08/24/14 1:24 UA Turbidity) PM) [facility]
[2022-09-17] MEDS ORDERED: LEVETIRACETAM 500 MG/5 ML VIAL IV ONE (21:32)
[2022-09-17] MEDS ORDERED: NA CHLORIDE 0.9% 1,000 ML ONE (21:32)
[2022-09-17] MEDS ORDERED: LACOSAMIDE 50 MG TABLET ONE (21:37)
[2022-09-17] MEDS ORDERED: MORPHINE 4 MG/ML SYR ONE (21:47)
[2022-09-17] MEDS ORDERED: ONDANSETRON 4 MG/2 ML VIAL ONE (21:48)
--- NOTE | 2022-09-17 22:13 | EDPHYS ---
Physician Documentation [facility] Name: Shanna Nur Age: 46 yrs Sex: Female : 1975 Arrival Date: 09/17/2022 Time: 18:29 Bed 27 Private MD: Tee Sue HPI: 09/17 20:51 This 46 yrs old Female presents to ER via Ambulatory with complaints of chiquis Probable Seizure, Foot Pain - swelling. 20:51 The patient presents with a history of multiple seizures, an unknown number. Character chiquis of seizure(s): Motor activity: generalized. Seizure onset: just prior to arrival. Context: the seizure(s) was witnessed, by family. Seizure Hx: Last seizure: The patient's last seizure is unknown. Associated injury: The patient did not suffer any apparent associated injury. EMS care: none. The patient has experienced similar episodes in the past, a few times. Historical: - Allergies: 18:40 Ibuprofen; ll1 18:40 Iodine (Anaphylaxis); ll1 18:40 Latex, Natural Rubber; ll1 18:40 Phenergan; ll1 18:40 SEAFOOD; ll1 18:40 tramadol; ll1 18:40 Ultram; ll1 18:40 Vancomycin; ll1 - PMHx: 18:40 Atrial fibrillation; Seizure; TBI; ll1 - PSHx: 18:40 Appendectomy; Tonsillectomy; Cholecystectomy; tubal ligation; Adenoid excision; L knee ll1 SX; - Immunization history:: Client reports having NOT received the Covid vaccine. - Social history:: Smoking status: Patient denies any tobacco usage or history of. - Family history:: not pertinent. ROS: 20:52 Constitutional: Negative for fever, chills, and weight loss, Eyes: Negative for injury, chiquis pain, redness, and discharge, ENT: Negative for injury, pain, and discharge, Neck: Negative for injury, pain, and swelling, Cardiovascular: Negative for chest pain, palpitations, and edema, Respiratory: Negative for shortness of breath, cough, wheezing, and pleuritic chest pain, Abdomen/GI: Negative for abdominal pain, nausea, vomiting, diarrhea, and constipation, Back: Negative for injury and pain, : Negative for injury, bleeding, discharge, and swelling, Skin: Negative for injury, rash, and discoloration, Psych: Negative for depression, anxiety, suicide ideation, homicidal ideation, and hallucinations, Allergy/Immunology: Negative for hives, rash, and allergies, Endocrine: Negative for neck swelling, polydipsia, polyuria, polyphagia, and marked weight changes, Hematologic/Lymphatic: Negative for swollen nodes, abnormal bleeding, and unusual bruising. 20:52 MS/extremity: Positive for injury or acute deformity, decreased range of motion, swelling, tenderness, of the right leg. Exam: 20:52 Constitutional: This is a well developed, well nourished patient who is awake, alert, chiquis and in no acute distress. Head/Face: Normocephalic, atraumatic. Eyes: Pupils equal round and reactive to light, extra-ocular motions intact. Lids and lashes normal. Conjunctiva and sclera are non-icteric and not injected. Cornea within normal limits. Periorbital areas with no swelling, redness, or edema. ENT: Nares patent. No nasal discharge, no septal abnormalities noted. Tympanic membranes are normal and external auditory canals are clear. Oropharynx with no redness, swelling, or masses, exudates, or evidence of obstruction, uvula midline. Mucous membranes moist. Neck: Trachea midline, no thyromegaly or masses palpated, and no cervical lymphadenopathy. Supple, full range of motion without nuchal rigidity, or vertebral point tenderness. No Meningismus. Chest/axilla: Normal chest wall appearance and motion. Nontender with no deformity. No lesions are appreciated. Cardiovascular: Regular rate and rhythm with a normal S1 and S2. No gallops, murmurs, or rubs. Normal PMI, no JVD. No pulse deficits. Respiratory: Lungs have equal breath sounds bilaterally, clear to auscultation and percussion. No rales, rhonchi or wheezes noted. No increased work of breathing, no retractions or nasal flaring. Abdomen/GI: Soft, non-tender, with normal bowel sounds. No distension or tympany. No guarding or rebound. No evidence of tenderness throughout. Back: No spinal tenderness. No costovertebral tenderness. Full range of motion. Female : Normal external genitalia. Skin: Warm, dry with normal turgor. Normal color with no rashes, no lesions, and no evidence of cellulitis. Neuro: Awake and alert, GCS 15, oriented to person, place, time, and situation. Cranial nerves II-XII grossly intact. Motor strength 5/5 in all extremities. Sensory grossly intact. Cerebellar exam normal. Normal gait. Psych: Awake, alert, with orientation to person, place and time. Behavior, mood, and affect are within normal limits. 20:52 Musculoskeletal/extremity: Extremities: grossly normal except: noted in the right leg: decreased ROM, pain, ROM: full active range of motion, full passive range of motion, Circulation is intact in all extremities. Sensation intact. Compartment Syndrome exam of affected extremity: is normal. Weight bearing: able to fully bear weight, DVT Exam: pain, swelling, tenderness, that is mild, of the right leg. Vital Signs: 18:41 BP 126 / 83; Pulse 99; Resp 17; Temp 99.0; Pulse Ox 100% ; Weight 68.04 kg; Height 5 ll1 ft. 2 in. (157.48 cm); Pain 10/10; 19:08 BP 124 / 88; Pulse 96; Resp 17; Temp 98.4(TE); Pulse Ox 99% ; ll1 20:58 BP 133 / 87; Pulse 87; Resp 23; Temp 97.6; Pulse Ox 99% on R/A; Weight 68.04 kg; Height rv1 5 ft. 3 in. (160.02 cm); Pain 10/10; 20:58 Body Mass Index 26.57 (68.04 kg, 160.02 cm) rv1 [place] Coma Score: 23:07 Eye Response: spontaneous(4). Verbal Response: oriented(5). Motor Response: obeys lg3 commands(6). Total: 15. MDM: 19:43 Patient medically screened. chiquis 20:56 Differential diagnosis: closed fracture, contusion, tendonitis, sprain, arthritis, chiquis gout. Differential diagnosis:. Data reviewed: vital signs, nurses notes, lab test result(s), radiologic studies, doppler. Consideration of Admission/Observation Patient was admitted/placed on observation. Escalation of care including admission/observation considered. Independent interpretation of the following test(s) in the Emergency Department Radiology Department Ultrasound: My interpretation is dvt ro. Test considered but Not performed: CT: no ct head. Care significantly affected by the following chronic conditions: afib, seizure, tbi. 09/17 20:51 Order name: CBC with Diff; Complete Time: 22:57 chiquis 09/17 20:51 Order name: Comprehensive Metabolic Panel; Complete Time: 22:57 chiquis 09/17 20:51 Order name: US Extremity Venous Unilateral Ltd; Complete Time: 22:57 chiquis Administered Medications: 22:21 Drug: morphine 4 mg Route: IVP; Infused Over: 4 mins; Site: right forearm; lg3 23:01 Follow up: Response: No adverse reaction lg3 22:21 Drug: Zofran (Ondansetron) 4 mg Route: IVP; Site: right forearm; lg3 23:01 Follow up: Response: No adverse reaction lg3 22:22 Drug: NS 0.9% 1000 ml Route: IV; Rate: 1 bolus; Site: right forearm; lg3 23:01 Follow up: Response: No adverse reaction; IV Status: Completed infusion; IV Intake: lg3 1000ml 22:22 Drug: Keppra (levETIRAcetam) 1000 mg Route: IV; Rate: bolus; Site: right forearm; lg3 22:22 Follow up: Response: No adverse reaction; IV Status: Completed infusion; IV Intake: [id number] 22:22 Drug: Vimpat (lacosamide) 200 mg Route: PO; lg3 23:01 Follow up: Response: No adverse reaction lg3 Disposition Summary: 09/17/22 22:13 Discharge Ordered Location: Home chiquis Problem: new chiquis Symptoms: have improved chiquis Condition: Stable chiquis Diagnosis - Epileptic seizures related to external causes chiquis - Pain in right foot chiquis - Pain in right leg chiquis - Pain in right lower leg chiquis Followup: chiquis - With: Private Physician - When: 2 - 3 days - Reason: Recheck today's complaints, Continuance of care, Re-evaluation by your physician Followup: chiquis - With: - When: 2 - 3 days - Reason: Recheck today's complaints, Re-evaluation by your physician Followup: chiquis - With: - When: 2 - 3 days - Reason: Recheck today's complaints, Continuance of care, Re-evaluation by your physician Discharge Instructions: - Discharge Summary Sheet chiquis - Musculoskeletal Pain chiquis - How to Use Cold Therapy, [id number] chiquis - How to Use Cold Therapy chiquis - Foot Pain chiquis Forms: - Medication Reconciliation Form chiquis - Thank You Letter chiquis - Antibiotic Education chiquis - Prescription Opioid Use chiquis Prescriptions: - Tylenol-Codeine #3 300 mg-30 mg Oral - take 2 tablets by ORAL route every 6 hours; 15 tablet; Refills: 0, Product chiquis Selection Permitted Signatures: Dispatcher [employer] Tee Acosta MD MD cha Gibson, Lacie RN RN lg3 Julieta Patterson RN RN ll1
--- NOTE | 2022-09-17 22:13 | ER ---
Nurse's Notes [facility] Name: Shanna Nur Age: 46 yrs Sex: Female : 1975 Arrival Date: 09/17/2022 Time: 18:29 Bed 27 Private MD: Diagnosis: Epileptic seizures related to external causes;Pain in right foot;Pain in right leg;Pain in right lower leg Presentation: 09/17 18:41 Chief complaint: Patient states: Hurt her R foot/ankle 4 days ago. Came yesterday and ll1 states Tylenol isn't helping the pain. Has seizures due to severe pain she states. Coronavirus screen: Vaccine status: Client denies travel out of the [place] in the last 14 days. At this time, the client does not indicate any symptoms associated with coronavirus-19. Ebola Screen: Patient denies travel to an Ebola-affected area in the 21 days before illness onset. Initial Sepsis Screen: Does the patient meet any 2 criteria? No. Patient's initial sepsis screen is negative. Does the patient have a suspected source of infection? Yes: Bone or joint infection. Risk Assessment: Do you want to hurt yourself or someone else? Patient reports no desire to harm self or others. Onset of symptoms was September 13, 2022. 18:41 Method Of Arrival: Ambulatory ll1 18:41 Acuity: JESUS 3 ll1 Historical: - Allergies: 18:40 Ibuprofen; ll1 18:40 Iodine (Anaphylaxis); ll1 18:40 Latex, Natural Rubber; ll1 18:40 Phenergan; ll1 18:40 SEAFOOD; ll1 18:40 tramadol; ll1 18:40 Ultram; ll1 18:40 Vancomycin; ll1 - PMHx: 18:40 Atrial fibrillation; Seizure; TBI; ll1 - PSHx: 18:40 Appendectomy; Tonsillectomy; Cholecystectomy; tubal ligation; Adenoid excision; L knee ll1 SX; - Immunization history:: Client reports having NOT received the Covid vaccine. - Social history:: Smoking status: Patient denies any tobacco usage or history of. - Family history:: not pertinent. Screenin:45 [facility] ED Fall Risk Assessment (Adult) History of falling in the last 3 months, lg3 including since admission No falls in past 3 months (0 pts). Abuse screen: Denies threats or abuse. Denies injuries from another. Nutritional screening: No deficits noted. Tuberculosis screening: No symptoms or risk factors identified. Assessment: 21:45 General: Appears in no apparent distress. uncomfortable, Behavior is cooperative, lg3 fussy. Pain: Complains of pain in right leg. Neuro: No deficits noted. [place]essa Agitation-Sedation Scale (RASS): +1 Restless Level of Consciousness is awake, alert, obeys commands, Oriented to person, place, time, situation, Moves all extremities. Full function Gait is steady, Speech is normal. Cardiovascular: No deficits noted. Denies chest pain, shortness of breath, Capillary refill < 3 seconds Clubbing of nail beds is absent JVD is absent Patient's skin is warm and dry. Respiratory: No deficits noted. Airway is patent Trachea midline Respiratory effort is even, unlabored, Respiratory pattern is regular, symmetrical. GI: No deficits noted. No signs and/or symptoms were reported involving the gastrointestinal system. Abdomen is round non-distended. : No deficits noted. No signs and/or symptoms were reported regarding the genitourinary system. EENT: No deficits noted. No signs and/or symptoms were reported regarding the EENT system. Derm: Skin is intact, is healthy with good turgor, Skin is dry, Skin is normal. Musculoskeletal: Circulation, motion, and sensation intact. Range of motion: intact in all extremities, Swelling present in right leg Reports pain in right leg. 23:01 Reassessment: Patient appears in no apparent distress at this time. No changes from lg3 previously documented assessment. Patient and/or family updated on plan of care and expected duration. Pain level reassessed. Patient is alert, oriented x 3, equal unlabored respirations, skin warm/dry/pink. Vital Signs: 18:41 BP 126 / 83; Pulse 99; Resp 17; Temp 99.0; Pulse Ox 100% ; Weight 68.04 kg; Height 5 ll1 ft. 2 in. (157.48 cm); Pain 10/10; 19:08 BP 124 / 88; Pulse 96; Resp 17; Temp 98.4(TE); Pulse Ox 99% ; ll1 20:58 BP 133 / 87; Pulse 87; Resp 23; Temp 97.6; Pulse Ox 99% on R/A; Weight 68.04 kg; Height rv1 5 ft. 3 in. (160.02 cm); Pain 10/10; 20:58 Body Mass Index 26.57 (68.04 kg, 160.02 cm) rv1 [place] Coma Score: 23:07 Eye Response: spontaneous(4). Verbal Response: oriented(5). Motor Response: obeys lg3 commands(6). Total: 15. ED Course: 18:29 Patient arrived in ED. as 18:43 Triage completed. ll1 18:43 Arm band placed on. ll1 19:43 Tee Pugh MD is Attending Physician. chiquis 21:45 Patient has correct armband on for positive identification. Placed in gown. Bed in low lg3 position. Call light in reach. Side rails up X 1. Seizure precautions initiated. Client placed on continuous cardiac and pulse oximetry monitoring. NIBP monitoring applied. equipment monitor phototypesetting on. Door closed. Noise minimized. Warm blanket given. Family accompanied patient. 21:52 Inserted saline lock: 22 gauge in right forearm, using aseptic technique. Blood ds4 collected. 22:11 US Extremity Venous Unilateral Ltd In Process Unspecified. EDMS 22:12 Sánchez Warner MD is Referral Physician. chiquis 22:12 Sam Fuentes MD is Referral Physician. chiquis 23:06 No provider procedures requiring assistance completed. IV discontinued, intact, lg3 bleeding controlled, No redness/swelling at site. Pressure dressing applied. Administered Medications: 22:21 Drug: morphine 4 mg Route: IVP; Infused Over: 4 mins; Site: right forearm; lg3 23:01 Follow up: Response: No adverse reaction lg3 22:21 Drug: Zofran (Ondansetron) 4 mg Route: IVP; Site: right forearm; lg3 23:01 Follow up: Response: No adverse reaction lg3 22:22 Drug: NS 0.9% 1000 ml Route: IV; Rate: 1 bolus; Site: right forearm; lg3 23:01 Follow up: Response: No adverse reaction; IV Status: Completed infusion; IV Intake: lg3 1000ml 22:22 Drug: Keppra (levETIRAcetam) 1000 mg Route: IV; Rate: bolus; Site: right forearm; lg3 22:22 Follow up: Response: No adverse reaction; IV Status: Completed infusion; IV Intake: [id number] 22:22 Drug: Vimpat (lacosamide) 200 mg Route: PO; lg3 23:01 Follow up: Response: No adverse reaction lg3 Medication: 21:45 VIS not applicable for this client. lg3 Intake: 22:22 IV: 50ml; Total: 50ml. lg3 23: IV: 1000ml; Total: 1050ml. lg3 Outcome: 22:13 Discharge ordered by MD. sim 23:06 Discharged to home via wheelchair, with significant other. lg3 23:06 Condition: stable 23:06 Discharge instructions given to patient, Instructed on discharge instructions, follow up and referral plans. medication usage, Demonstrated understanding of instructions, follow-up care, medications, Prescriptions given X 1. 23:07 Patient left the ED. lg3 Signatures: Dispatcher [employer] EDTee Falcon MD MD cha Martinez, Amelia as Swanson, Donovan ds4 Nayely Montalvo RN RN lg3 Julieta Patterson RN RN ll1 Atiya Benedict [facility]
--- NOTE | 2022-09-17 22:17 | RAD REPORT ---
EXAM DESCRIPTION: US - Extremity Venous Uni Ltd - 09/17/2022 10:11 pm CLINICAL HISTORY: PAIN Leg swelling and edema. COMPARISON: No comparisons FINDINGS: Right lower extremity venous system was interrogated with Doppler technique. Normal flow, compressibility and augmentation was noted. There is no DVT present. IMPRESSION: No evidence of right lower extremity deep venous thrombosis.
[2022-09-17 22:27] LABS: Hematocrit 45.6 % (36.0-45.0); Lymphocytes % 32.7 % (15.3-44.8); MCV 91.8 fL (80-100); MPV 8.4 fL (7.6-11.3); RBC Red Blood Cell Count 4.97 M/uL (3.86-4.86)
[2022-09-17 22:31] LABS: Albumin 3.7 g/dL (3.4-5.0); Bilirubin Total 0.4 mg/dL (0.2-1.0); Potassium 3.8 mmol/L (3.5-5.1); Protein, Total 7.5 g/dL (6.4-8.2)
[2022-09-17 23:47] VITALS: O2SAT 99
[2022-09-17 23:53] VITALS: BP 133/87; TEMP 97.6
== END 2022-09-17 23:07 | disposition home or self-care (01) ==
LOC: ER 18:28
DX: G40.509 Epileptic seizures related to external causes, not intractable, without status epilepticus (principal); M79.671 Pain in right foot; M79.661 Pain in right lower leg; M79.604 Pain in right leg; I48.91 Unspecified atrial fibrillation; Z87.820 Personal history of traumatic brain injury; Z88.3 Allergy status to other anti-infective agents; Z88.5 Allergy status to narcotic agent; Z88.6 Allergy status to analgesic agent; Z88.8 Allergy status to other drugs, medicaments and biological substances; Z91.013 Allergy to seafood; Z91.040 Latex allergy status; Z91.048 Other nonmedicinal substance allergy status
CPT/HCPCS: 85025; 36415; 80053; 93971; J1953; J7030; J2405; 96361; 96374; 96375; 99284

== ENCOUNTER 2022-10-10 18:02 | Emergency (ER) | payer OTHER ==
--- OUTSIDE RECORDS SUMMARY | 2022-10-10 18:18 | XMS REPORT | Continuity of Care Document ---
:1975 Author Organization [facility] t Address [address] [facility] [address] [place] [address] Care Team Providers Name Role Phone Declan Field Primary Care Physician [phone] LEANDRO OLIVARES Attending Clinician Unavailable Halima Vargas MD Attending Clinician HALIMA VARGAS Attending Clinician Unavailable Karissa Attending Clinician Unavailable Haroon Ramirez MD Attending Clinician Joe Boles DO Attending Clinician TEJAL RIZZO Attending Clinician Unavailable Florence HUNTLEYWaleska Attending Clinician Unavailable Starr Vinson RN Attending Clinician Unavailable LEANDRO OLIVARES M.D. Attending Clinician Unavailable VIRAL COFFEY Attending Clinician Unavailable Felicia Frost MD Attending Clinician LUCY NASCIMENTO M.D. Attending Clinician Unavailable Bladimir Brumfield MD Attending Clinician [phone] Obdulio Ragland MD Attending Clinician MD OBDULIO RAGLAND Attending Clinician Unavailable Inez García MD Attending Clinician [phone] JUDE MATHEWS M.D. Attending Clinician Unavailable Woo Greenberg DO Attending Clinician [phone] Bryant Hill MD Attending Clinician Clarice Brannon MD Attending Clinician Lj Thakkar Attending Clinician MD LJ THAKKAR Attending Clinician Unavailable Jose Elias Torres MD Attending Clinician Lydia Oden MD Attending Clinician [phone] Maribel Dickey MD Attending Clinician MD [...] Number Effective Date Expiration Date Brannon richards [facility] [id number] 2020 STAR 00:00:00 CDC REVIEW [id number] 2020 00:00:00 Problems Condition Condition Condition Status [...] BLEEDING BLEEDING 7 09:01:00 l Active 23:00: Guild 02/12/2016 00 [facility] D25.9 - D25.9 - Diagnosis Active 2014-082015-06-08 Memoria "LEIOMYOMA "LEIOMYOMA 15:22:00 l OF UTERUS, OF UTERUS, 00:01: He rmann UNSPECIFI" UNSPECIFI" 00 Active 06/08/2015 OPID Guild VAGINAL VAGINAL Diagnosis Active 2014-12-21 Memoria BLEEDING- BLEEDING- 09-03 13:01:00 l 6 WKS PG 6 WKS PG 00:00: Jordy n Active 00 09/03/2014 [facility] CONSTIPATI CONSTIPAT Diagnosis Active 2014-12-14 Memoria ON, NAUSEA ION, 08-24 09:23:00 l NAUSEA 00:00: Antonio Active 00 08/24/2014 [facility] No known No known Disease Unive rs active active ity of problems problems [facility] History of History of Problem Resolve [place] Bladder Bladder d Physici spasm spasm ans History of History of Problem Resolve [facility] Chronic Chronic d Physici pain pain ans Anemia Anemia Problem Resolve 2016-02-16 Mem oria (disorder) (disorder) d 00:25:42 l Resolved Guild Problem 02/16/2016 [facility] Migraine Migraine Problem Resolve 2016-02-16 Memoria (disorder) (disorder) d 00:25:42 l Resolved Guild Problem 02/16/2016 [facility] Mitral Mitral Problem Resolve 2016-02-16 Mem oria valve valve d 00:25:42 l prolapse prolapse Jordy n (disorder) (disorder) Resolved Problem 02/16/2016 [facility] Anxiety Anxiety Problem Active 2016-02-16 Me moria (finding) (finding) 00:25:42 l Active Guild Problem 02/16/2016 [facility] Bipolar Bipolar Problem Active 2016-02-16 Me moria (qualifier (qualifier 00:25:42 l value) value) Antonio Active Problem 02/16/2016 [facility] Congestive Congestiv Problem Active 2016-02-16 Memoria heart e heart 00:25:42 l failure failure Guild (disorder) (disorder) Active Problem 02/16/2016 [facility] Depressive Depressiv Problem Active 2016-02-16 Memoria disorder e disorder 00:25:42 l (disorder) (disorder) He rmann Active Problem 02/16/2016 [facility] Gastroesop Gastroeso Problem Active 2016-02-16 Memoria hageal phageal 00:25:42 l reflux reflux Antonio disease disease (disorder) (disorder) Active Problem 02/16/2016 [facility] Heart Heart Problem Active 2016-02-16 Memor ia failure failure 00:25:42 l (disorder) (disorder) He rmann Active Problem 02/16/2016 [facility] Hypertensi Hypertens Problem Active 2016-02-16 Memoria ve kellee 00:25:42 l disorder, disorder, Herm alem systemic systemic arterial arterial (disorder) (disorder) Active Problem 02/16/2016 [facility] Multiple Multiple Problem Active 2016-02-16 Memoria sclerosis sclerosis 00:25:42 l (disorder) (disorder) He rmann Active Problem 02/16/2016 [facility] Osteoarthr Osteoarth Problem Active 2016-02-16 Memoria itis ritis 00:25:42 l (disorder) (disorder) He rmann Active Problem 02/16/2016 [facility] Drug Drug Problem Active 2016-02-16 Memor ia overdose overdose 00:25:42 l (disorder) (disorder) He rmann Active Problem 02/16/2016 [facility] Rheumatoid Rheumatoi Problem Active 2016-02-16 Memoria arthritis d 00:25:42 l (disorder) arthritis Her sarkar (disorder) Active Problem 02/16/2016 [facility] 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 00:25:42 l (disorder) (disorder) He rmann Active Problem 02/16/2016 [facility] Uterine Uterine Problem Active 2016-02-16 Me moria leiomyoma leiomyoma 00:25:42 l (disorder) (disorder) He rmann Active Problem 02/16/2016 [facility] Urinary Urinary Problem Active 2016-02-16 Me moria tract tract 00:25:42 l infectious infectious He rmann disease disease (disorder) (disorder) Active Problem 02/16/2016 [facility] History of History of Problem Resolve [facility] [...] with a with atypia atypia History of Past Illness Condition Condition Condition Status Onset Resolution Last Treating Co mments Source Name Details Category Date Date Treatment Clinician Date Discharge Problem 2016-02-16 2016-02-16 Memoria Diagnosis: Discharge 02-12 00:25:42 00:25:42 l Anemia, Diagnosis: 05:00: Kristina nn unspecifie Anemia, 00 d unspecifie d 02/13/2016 02/16/2016 [facility] Discharge Discharge Problem 2016-02-16 2016-02-16 Memoria Diagnosis: Diagnosis: 02-12 00:25:42 00:25:42 l Abnormal Abnormal 05:00: Jordy n uterine uterine 00 and and vaginal vaginal bleeding, bleeding, unspecifie unspecifie d d 02/13/2016 6 [facility] Discharge Discharge Problem 2014-09-06 2014-09-06 Memoria Diagnosis: Diagnosis: 09-04 16:01:45 16:01:45 l Vaginal Vaginal 06:00: Antonio bleeding bleeding 09/04/2014 09/06/2014 [facility] Discharge Discharge Problem 2014-09-06 2014-09-06 Memoria Diagnosis: Diagnosis: 09-04 16:01:45 16:01:45 l Dysmenorrh Dysmenorrh 06:00: He rmann ea ea 09/04/2014 09/06/2014 [facility] Discharge Discharge Problem 2014-08-26 2014-08-26 Memoria Diagnosis: Diagnosis: 1- 17:22:44 17:22:44 l Nausea Nausea 06:00: Guild 08/24/201408/26/2014 [facility] Discharge Discharge Problem 2014-08-26 2014-08-26 Memoria Diagnosis: Diagnosis: 1- 17:22:44 17:22:44 l Constipati Constipati 06:00: He rmann on on 08/24/2014 08/26/2014 [facility] Allergies, Adverse Reactions, Alerts Allergy Allergy [...] CONTAINI 00 NG PRODUCTS KETOROLA Allergy Active 2016- SLSL C 11-07 00:00: 00 Povidone Propensi [...] Active Memori a d d 8-09 l radioMax-Viz radiocon 00:00: Jordy roberto trast trast 00 dyes dyes Levaquin Levaquin Active Memori a 8-09 l 00:00: Guild 00 Phenerga Phenerga Active Memori a n n 8-09 l 00:00: Guild 00 Betadine Allergy Active [facility] SOLN to [...] Food Active Memoria Seafood Seafood l Antonio Latex Latex Active Memoria l Guild morphine morphine Active Memori a l Antonio vancomyc vancomyc Active Memori a in in l Antonio Elavil Elavil Active Memoria l Antonio STEROIDS Allergy Active SLSL Family History Family Member Diagnosis Comments Start Date Stop Date Source Family member [facility] Maternal aunt Cancer [facility] Maternal aunt Melanoma [facility] Maternal grandfather Stroke [facility] Natural mother Diabetes [facility] Natural sister Stroke [facility] Maternal uncle Leukemia [facility] Social History Social Habit Start Date Stop Date Quantity Comments Source History SDOH Shinto Alcohol Frequency Hospita l History SDOH Shinto Alcohol Std Hospital Drinks History SDOH Shinto Alcohol Binge Hospital Exposure to 2022-08-04 2022-08-14 Not sure [facility] SARS-CoV-2 00:00:00 20:42:00 [facility] (event) Branch Alcohol intake 2021-05-05 2021-05-05 Current non-drinker [facility] 00:00:00 00:00:00 of [facility] (finding) Alcohol Comment 2018-08-02 2018-08-[address] 00:00:00 00:00:00 Hospital Tobacco use and 2014-05-15 2014-05-[address] [facility] exposure 00:00[facility]00 [facility]:00 [facility] Sex Assigned At [address] [facility] 00:00:00 [facility]00 [facility] Center Smoking Status Start Date Stop Date Source Tobacco smoking consumption [facility] Branch Social History [facility] Medications Ordered Filled Start Stop Current Ordering [...] 1000mL at 999 Uni vers (NS) bolus 08-15 mL/hr, ity of infusion 04:00: 04:32 1,000 [...] 15 Minutes, 100 mL levETIRAcet 0 Yes [id number] 1000mg Take 1 Univers am (KEPPRA) - tablet by ity of 1,000 mg 00:00: mouth in [place] tablet 00 the morning Branch and 1 tablet in the evening. Lacosamide Yes [id number] 200mg Take 1 Univers (VIMPAT) - tablet by ity of 200 mg 00:00: mouth in [place] tablet 00 the Medical morning Branch and 1 tablet in the evening. ALPRAZolam Yes [id number] .25mg Take 1 Univers (XANAX) - tablet by ity of 0.25 mg 00:00: mouth in [place] tablet 00 the morning Branch and 1 tablet at noon and 1 tablet in the evening. acetaminoph 2020-08- No [id number] 1{tbl} Q6H Take 1 Methodi en-codeine 08-[address] (TYLENOL 00:00: 05:59 mouth Hospita WITH 00 :00 every 6 l CODEINE #3) (six) 300-30 mg hours as per tablet needed for moderate pain for up to 5 days .acute pain. acetaminoph 2020-08 No [id number] 1{tbl} Q6H Take 1 Methodi en-codeine 08-[address] (TYLENOL 00:00: 05:59 mouth Hospita WITH 00 :00 every 6 l CODEINE #3) (six) 300-30 mg hours as per tablet needed for moderate pain for up to 5 days .acute pain. No known No No known UT medications - medication He alth 12:13: s 10 No known No No known UT medications 04-25 medication He alth 12:13: s 10 bumetanide Yes [id number] 2mg QD Take 1 U T (Bumex) 2 - tablet (2 Healt h MG tablet 00:00: mg total) 00 by mouth 1 (one) time each day. lisinopril Yes [id number] 2.5mg QD Take 1 UT 2.5 MG 04-25 tablet Health tablet 00:00: (2.5 mg 00 total) by mouth 1 (one) time each day. metoprolol Yes [id number] 50mg Q.5D Take 1 U T succinate [...] 50 MG 24 hr tablet lisinopril Yes [id number] 2.5mg QD Take 1 UT 2.5 MG -29 tablet Health tablet 00:00: (2.5 mg 00 total) by mouth 1 (one) time each day. metoprolol Yes [id number] 50mg Q.5D Take 1 U T succinate -29 tablet (50 Heal th XL 00:00: mg total) (Toprol-XL) 00 by mouth 2 50 MG 24 hr (two) tablet times a day. lisinopril 2020- No [id number] 2.5mg QD Take 1 UT 2.5 MG -04-25 tablet Health tablet 00:00: 00:00 (2.5 mg 00 :00 total) by mouth 1 (one) time each day. metoprolol 2020- No [id number] 50mg Q.5D Take 1 UT succinate -04-25 tablet (50 Hea lth XL 00:00: 00:00 mg total) (Toprol-XL) 00 :00 by mouth 2 50 MG 24 hr (two) tablet times a day. aspirin 325 0 Yes 325mg Take 325 M ethodi MG tablet 4-[address] 16:32: mouth. Hospita 59 Takes 3x a l week nitroglycer [address] 0.3 M ethodi in [...] capsule 59 l busPIRone 0 Yes 15mg Q.[id number] Take 15 mg Methodi (BUSPAR) 10 - [id number] by mouth 3 st MG tablet 16:32: [...] capsule 59 l busPIRone 0 Yes 15mg Q.[id number] Take 15 mg Methodi (BUSPAR) 10 4-26 [id number] [address] mouth [address] MG tablet 11:32: [...] Hospita capsule 59 l busPIRone Yes 15mg Q.[id number] Take 15 mg Methodi (BUSPAR) 10 - [id number] by mouth 3 st MG tablet 11:32: [...] Hospita capsule 59 l busPIRone Yes 15mg Q.[id number] Take 15 mg Methodi (BUSPAR) 10 -26 [id number] [address] mouth [address] MG tablet 11:32: [...] Take 10 mg M ethodi (PROzac) 10 -[address] MG capsule 11:32: daily. Hospi ta 59 l prazosin Yes 5mg QD Take 5 mg Meth ketty (MINIPRESS) 4-[address] 5 MG 11:32: nightly. Hospita capsule 59 l busPIRone Yes 15mg Q.[id number] Take 15 mg Methodi (BUSPAR) 10 4-26 [id number] mouth [address] MG tablet 11:32: [...] capsule 59 l busPIRone 0 Yes 15mg Q.[id number] Take 15 mg Methodi (BUSPAR) 10 4-26 [id number] mouth [address] MG tablet 11:32: 3D (three) Hospi ta 59 times a l day. ondansetron Yes 8mg Q8H Take 8 mg M ethodi ODT 4-[address] (ZOFRAN-ODT 11:32: every 8 Hos denise ) 8 MG 59 (eight) l disintegrat hours as ing tablet needed for nausea or vomiting. bumetanide 0 2020- No 2mg QD Take 2 mg [...] tablet hours for 10 [place] [id number] 1{tbl} Q6H Take 1-2 Methodi en-codeine 3-24 03-[address] (TYLENOL 00:00: 04:59 mouth Hospita WITH 00 :00 every 6 l CODEINE #3) (six) 300-30 mg hours as per tablet needed for moderate pain for up to 5 [place] [id number] 1{tbl} Q6H Take 1-2 Methodi en-codeine 3-24 03-[address] (TYLENOL 00:00: 04:59 mouth Hospita WITH 00 :00 every 6 l CODEINE #3) (six) 300-30 mg hours as per tablet needed for moderate pain for up to 5 days .acute pain. acetaminoph 2020- No [id number] 1{tbl} Q6H Take 1-2 Methodi en-codeine 3-24 [...] 200mg Q.5D Take 1 Met hodi (VIMPAT) 2-05 03-[address] 200 mg 00:00: 05:59 [...] 500mg Q.5D Take 500 Methodi am (KEPPRA) 09-[address] 500 MG 00:12: 00:00 mouth 2 Hospita tablet 15 :00 (two) l times a day. lacosamide 2020- No 100mg Q.5D Take 100 M ethodi (VIMPAT) 09-[address] 100 mg 00:12: 00:00 [...] 100 mg 43 :00 l tablet morPHINE 2020-0 2020- No 30mg Q.5D Take 30 mg Me thodi (MS CONTIN) 05-08 by mouth 2 s t 30 MG 12 hr 17:49: 00:00 (two) Hosp arcenio tablet 43 :00 times a l day. Extended Release HYDROcodone 2020-0 2020- No Q.5D Take by Me thodi -acetaminop 05-[address] hen (NORCO) 17:49: 00:00 (two) Hosp arcenio 5-325 mg 43 :00 times a l per tablet day. diazePAM 2020-0 2020- No 10mg Q.[id number] Take 10 mg Methodi (VALIUM) 5 05-08 [id number] mouth [address] MG tablet 17:49: [...] (two) l tablet times a day. metoprolol 2020-0 2020- No 50mg Q.5D Take 50 mg Methodi succinate 05-[address] XL 16:17: 00:00 (two) Hospita (TOPROL-XL) 20 :00 times a l 50 mg 24 hr day. tablet lisinopriL 2019-0 2020- No 2.5mg QD Take 2.5 M ethodi (PRINIVIL) 05-08 09-[address] 2.5 mg 16:17: 00:00 mouth Hospita tablet 20 :00 daily. l butalbital- 2019- No 1{tbl} Q4H Take 1 M ethodi acetaminoph 05-[address] en-caff 00:00: 04:59 mouth Hospita (FIORICET) 00 :00 every 4 l 50-325-40 (four) mg per hours as tablet needed for headaches or migraine for up to 30 days. lactulose 2019- No 20g Q.[id number] Take 30 mL Methodi 20 gram/30 05-08 [id number] (20 g s t mL solution 00:00: 04:59 3D total) by Hospita 00 :00 mouth 3 l (three) times a day as needed (CONSTIPAT ION) for up to 30 days. meclizine 2019- No 25mg Q.[id number] Take 1 Methodi (ANTIVERT) 05-08 [id number] tablet (25 st 25 mg 00:00: 04:59 3D mg total) Hospit a tablet 00 :00 by mouth 3 l (three) times a day as needed for dizziness for up to 30 days. pregabalin 2019- No 50mg Q.[id number] Take 2 Methodi (LYRICA) 25 05-[id number] MG capsule 00:00: 04:59 3D [...] times a day for 30 days. levETIRAcet 0 2020- No 500mg Q.5D Take 1 Me thodi am (Keppra) 05-[address] 500 MG 00:00: 04:59 (500 mg Hospita tablet 00 :00 total) by l mouth 2 (two) times a day for 30 days. lacosamide 2020-0 2020- No 100mg Q.5D Take 1 Met hodi (VIMPAT) 05-[address] 100 mg 00:00: 00:00 (100 mg Hospita tablet 00 :00 total) by l mouth 2 (two) times a day for 30 days. gabapentin 2020-0 2020- No 600mg Q.5D Take 600 M ethodi (NEURONTIN) 05-[address] 600 mg 08:52: 00:00 mouth 2 Hospita tablet 08 :00 (two) l times a day. BUMETanide 2020-0 2020- No 2mg QD Take 2 mg [...] hours as COMPOUNDED) needed. solution WITH albuterol 2019-0 2020- No 2.5mg Take 0.5 CH I [...] :00 total) by Center mouth daily. albuterol 2019-0 2020- No 2.5mg Take 0.5 CH I [...] :00 total) by Center mouth daily. albuterol 2019-0 2020- No 2.5mg Take 0.5 CH I [...] :00 total) by Center mouth daily. dicyclomine 2019-0 2020- No 20mg Q.5D Take 1 [facility]I [...] route spray daily. Ferralet 90 Ferralet 90 2015- Yes JUANCARLOS EMMANUEL 1QD - TA KE UT 90-1 MG 90-1 MG 9-12 M.D. ONE Physici Oral Tablet Oral Tablet 00:00: CAPSULE BY ans 00 MOUTH EVERY DAY ferrous 2016-0 Yes 325 mg = 1 [...] ermann tablet 00 tab, 0 Refill(s) Reglan 2015-0 No 10 mg, Memoria 02-12 Route: l 09:11: IVP, Drug form: INJ, ONCE, Dosing Weight [...] Memoria 02-12 Route: l 09:11: IVP, Drug Guild 00 form: INJ, ONCE, Dosing Weight 68.182, kg, Priority: STAT, Start date: 02/13/16 4:11:00 CDT, Stop date: 02/13/16 4:11:00 CDT Sodium 2016-0 No 1,000 mL, Memori a Chloride 7-03 Rate: l 0.9% IV 09:11: 1,000 Guild 1000 mL 00 ml/hr, Infuse over: 1 hr, Route: IV, Dosing Weight 68.182 kg, Total Volume: 1,000, Start date: 02/13/16 4:11:00 CDT, Duration: 1 doses or times, Stop date: 02/13/16 5:10:00 CDT, Bolus Dose Reglan 2016-0 No 10 mg, Memoria 7-03 Route: l 09:11: IVP, Drug Antonio 00 form: INJ, ONCE, Dosing Weight 68.182, kg, Priority: STAT, Start date: 02/13/16 4:11:00 CDT, Stop date: 02/13/16 4:11:00 CDT Sodium 2016-0 No 1,000 mL, Memori a Chloride 7-03 Rate: l 0.9% IV 09:11: 1,000 Guild 1000 mL 00 ml/hr, Infuse over: 1 hr, Route: IV, Dosing Weight 68.182 kg, Total Volume: 1,000, Start date: 02/13/16 4:11:00 CDT, Duration: 1 doses or times, Stop date: 02/13/16 5:10:00 CDT, Bolus Dose Reglan 2016-0 No 10 mg, Memoria 7-03 Route: l 09:11: IVP, Drug Guild 00 form: INJ, ONCE, Dosing Weight 68.182, kg, Priority: STAT, Start date: 02/13/16 4:11:00 CDT, Stop date: 02/13/16 4:11:00 CDT Sodium 2016-0 No 1,000 mL, Memori a Chloride 7-03 Rate: l 0.9% IV 09:11: 1,000 Antonio 1000 mL 00 ml/hr, Infuse over: 1 hr, Route: IV, Dosing Weight 68.182 kg, Total Volume: 1,000, Start date: 02/13/16 4:11:00 CDT, Duration: 1 doses or times, Stop date: 02/13/16 5:10:00 CDT, Bolus Dose Reglan 2016-0 No 10 mg, Memoria 02-12 Route: l 09:11: IVP, Drug Guild 00 form: INJ, ONCE, Dosing Weight 68.182, [...] 02-12 Route: PO, l 08:17: Drug form: Guild 00 TAB, ONCE, Dosing Weight 68.182, kg, Priority: STAT, Start date: 02/13/16 3:17:00 CDT, Stop date: 02/13/16 3:17:00 CDT Acetaminoph 2015-0 No 650 mg, Mem oria en 02-12 Route: PO, l 08:17: Drug form: Guild 00 TAB, ONCE, Dosing Weight 68.182, kg, Priority: STAT, Start date: 02/13/16 3:17:00 CDT, Stop date: 02/13/16 3:17:00 CDT Acetaminoph 2016-0 No 650 mg, Mem oria en 02-12 Route: PO, l 08:17: Drug form: Guild 00 TAB, ONCE, Dosing Weight 68.182, kg, Priority: STAT, Start date: 02/13/16 3:17:00 CDT, Stop date: 02/13/16 3:17:00 CDT Acetaminoph 2016-0 No 650 mg, Mem oria en 02-12 Route: PO, l 08:17: Drug form: Guild 00 TAB, ONCE, Dosing Weight 68.182, kg, Priority: STAT, Start date: 02/13/16 3:17:00 CDT, Stop date: 02/13/16 3:17:00 CDT Acetaminoph 2016-0 No 650 mg, Mem oria en 02-12 Route: PO, l 08:17: Drug form: Antonio 00 TAB, ONCE, Dosing Weight 68.182, kg, Priority: STAT, Start date: 02/13/16 3:17:00 CDT, Stop date: 02/13/16 3:17:00 CDT Zofran 2016-0 No 4 mg, Memoria 02-12 Route: l 06:19: IVP, Drug Antonio 00 form: INJ, ONCE, Dosing Weight 68.182, kg, Priority: STAT, Start date: 02/13/16 1:19:00 CDT, Stop date: 02/13/16 1:19:00 CDT Zofran 2016-0 No 4 mg, Memoria 02-12 Route: l 06:19: IVP, Drug Antonio 00 form: INJ, ONCE, Dosing Weight 68.182, kg, Priority: STAT, Start date: 02/13/16 1:19:00 CDT, Stop date: 02/13/16 1:19:00 CDT Zofran 2016-0 No 4 mg, Memoria 02-12 Route: l 06:19: IVP, Drug Guild 00 form: INJ, ONCE, Dosing Weight 68.182, kg, Priority: STAT, Start date: 02/13/16 1:19:00 CDT, Stop date: 02/13/16 1:19:00 CDT Zofran 2016-0 No 4 mg, Memoria - Route: l 06:19: IVP, Drug Antnoio 00 form: INJ, ONCE, Dosing Weight 68.182, kg, Priority: STAT, Start date: 02/13/16 1:19:00 CDT, Stop date: 02/13/16 1:19:00 CDT Zofran 2016-0 No 4 mg, Memoria 7- Route: l 06:19: IVP, Drug Guild 00 form: INJ, ONCE, Dosing Weight 68.182, kg, Priority: STAT, Start date: 02/13/16 1:19:00 CDT, Stop date: 02/13/16 1:19:00 CDT Saline 0 No Notes: Memoria Flush 0.9% 02-12 (Same as: l 06:07: BD Guild 00 Posiflush) Saline No Notes: Memoria Flush 0.9% 7-03 (Same as: l 06:07: BD Guild Posiflush) Saline No Notes: Memoria Flush 0.9% 7-03 (Same as: l 06:07: BD Guild Posiflush) Saline No Notes: Memoria Flush 0.9% 7-03 (Same as: l 06:07: BD Antonio Posiflush) Saline No Notes: Memoria Flush 0.9% 7-03 (Same as: l 06:07: BD Antonio Posiflush) Ibuprofen Yes Special Memor ia 800 MG Oral 1-23 Instructio l Tablet 08:52: ns: Take Guild [Motrin] 00 with food Ibuprofen Yes Special Memor ia 800 MG Oral 1-23 Instructio l Tablet 08:52: ns: Take Antonio [Motrin] 00 with food Ibuprofen Yes Special Memor ia 800 MG Oral 1-23 Instructio l Tablet 08:52: ns: Take Antonio [Motrin] 00 with food Ibuprofen Yes Special Memor ia 800 MG Oral 1-23 Instructio l Tablet 08:52: ns: Take Guild [Motrin] 00 with food Ibuprofen Yes Special Memor ia 800 MG Oral 1-23 Instructio l Tablet 08:52: ns: Take Guild [Motrin] 00 with food Ketorolac No 4 days Memor ia 1-23 l 08:49: Guild 00 Ketorolac No 4 days Memor ia 1-23 l 08:49: Antonio 00 Ketorolac No 4 days Memor ia 1-23 l 08:49: Guild 00 Ketorolac No 4 days Memor ia 1-23 l 08:49: Antonio 00 Ketorolac No 4 days Memor ia 1-23 l 08:49: Guild 00 gabapentin Yes 600 mg = 1 [...] PO, l Oral Tablet 21:41: Bedtime, # Guild [Lipitor] 00 30 tab, 0 Refill(s) metoprolol [...] ts Source Name Name Tdap 2020-11-03 Completed [facility] 00:00:00 [facility] 2020-11-03 Completed [facility]into 00:00:00 [facility] 2020-11-03 Completed [facility] 00:00:00 [facility] 2020-11-03 Completed [facility]into 00:00:00 [facility] 2020-11-03 Completed [facility] 00:00:00 [facility] 2020-11-03 Completed [facility] 00:00:00 Hospital Vital Signs Vital Name Observation Time Observation Value Comments Source Systolic blood 2022-08-15 113 mm[Hg] [facility] pressure 04:00:00 [facility] Diastolic blood 2022-08-15 76 mm[Hg] [place] o f pressure 04:00:00 [facility] Heart rate 2022-08-15 91 /min [facility] 04:00:00 [facility] Respiratory rate 2022-08-15 24 /min [facility] 04:00:00 [facility] Oxygen saturation 2022-08-15 95 /min [facility] Arterial blood 04:00:00 [facility] by Pulse oximetry [place] Body temperature 2022-08-15 35.94 Cecily [facility] 02:49:00 [facility] Body height 2022-08-15 160 cm [facility] 02:49:00 [facility] Body weight 2022-08-15 68.04 kg [facility] 02:49:00 [facility] BMI 2022-08-15 26.57 kg/m2 [facility] 02:49:00 [facility] HEIGHT 2021-05-05 165.1 cm 20:18:00 WEIGHT 2021-05-05 68.04 kg 20:18:00 HEIGHT 2021-05-05 165.1 cm 20:18:00 WEIGHT 2021-05-05 68.04 kg 20:18:00 Systolic blood 2021-04-25 120 mm[Hg] [facility] pressure 16:25:00 Diastolic blood 2021-04-25 77 mm[Hg] [facility] pressure 16:25:00 Heart rate 2021-04-25 72 /min [facility] 16:25:00 Body height 2021-04-25 167.6 cm [facility] 16:25:00 Body weight 2021-04-25 78.926 kg [facility] 16:25:00 BMI 2021-04-25 28.08 kg/m2 [facility] 16:25:00 HEIGHT 2020-02-04 161 cm 00:00:00 WEIGHT 2020-02-04 68.04 kg 00:00:00 HEIGHT 2020-02-04 161 cm 00:00:00 WEIGHT 2020-02-04 68.04 kg 00:00:00 Systolic blood 2021-06-29 147 mm[Hg] [facility] pressure 16:16:09 Hospital Diastolic blood 2021-06-29 67 mm[Hg] [facility] pressure 16:16:09 Hospital Heart rate 2021-06-29 94 /min [facility] 16:16:09 [facility] Body temperature 2021-06-29 36.89 Cecily [facility] 16:16:09 Hospital Oxygen saturation 2021-06-29 94 /min [facility] in Arterial blood 16:16:09 Hospital by Pulse oximetry Systolic blood 2021-05-06 124 mm[Hg] [facility] pressure 01:23:00 [facility] Diastolic blood 2021-05-06 68 mm[Hg] [facility] pressure 01:23:00 [facility] Heart rate 2021-05-06 84 /min [facility] 01:23:00 [facility] Body temperature 2021-05-[address] [facility] 01:23:00 [facility] Respiratory rate 2021-05-06 18 /min [facility] 01:23:00 [facility] Oxygen saturation 2021-05-05 99 /min [facility] Arterial blood 23:45:00 [facility] nter by Pulse oximetry Body height 2021-05-[address] [facility] 20:18:00 [facility] Body weight 2021-05-[address] [facility] 20:18:00 [facility] BMI 2021-05-05 24.96 kg/m2 [facility] 20:18:00 [facility] Systolic blood 2020-12-16 120 mm[Hg] [place] [place] [facility] 11:22:00 Position: Sitting Diastolic blood 2020-12-16 77 mm[Hg] [place] [place] [place] [facility] 11:22:00 Position: Sitting Body height 2020-12-16 63 [in_us] [facility] 11:22:00 Weight 2020-12-16 165 [lb_av] [facility] 11:22:00 Body mass index 2020-12-16 29.23 kg/m2 [facility] (BMI) [Ratio] 11:22:00 Heart Rate 2020-12-16 90 /min [facility] 11:22:00 Heart rate 2020-12-06 78 /min [facility] 15:01:00 Hospital Respiratory rate 2020-12-06 16 /min [facility] 15:01:00 Hospital Oxygen saturation 2020-12-06 97 /min [facility] in Arterial blood 15:01:00 [facility] P[facility] oximetry Systolic blood 2020-12-06 124 mm[Hg] [facility] pressure 13:03:19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 [facility] 2016-02-13 2016-02-13 EC nullFlavo [facility] [id number] 475 Memoria 05:43:00 11:41:00 Emergency r Guild 00 l [facility] 2016-02-13 2016-02-13 Outpatient Sravanthi [facility] [id number] 00:43:00 06:41:00 Malorie 00 Suzanne 2014-09-04 2014-09-04 EC nullFlavo [facility] [id number] 675 Memoria 07:09:00 09:15:00 Emergency r Guild 19 l [facility] 2014-09-04 2014-09-04 EC nullFlavo [facility] [id number] 675 Memoria 07:09:00 09:15:00 Emergency r Antonio 19 l [facility] 2014-09-04 2014-09-04 Outpatient [facility], 2.16.840. 2.16.840.1. [id number] 01:09:00 03:15:00 Tatsuo 1.598659. 054590.3.61 19 3.615.0.1 5.0.852 91 4893-01-12 2014-08-24 EC nullFlavo [facility] [id number] 675 Memoria 17:17:00 22:15:00 Emergency r Guild 18 l [facility] 2014-08-24 2014-08-24 EC nullFlavo [facility] [id number] 675 Memoria 17:17:00 22:15:00 Emergency r Antonio 18 l [facility] 2014-08-24 2014-08-24 Outpatient [facility], 2.16.840. 2.16.840.1. [id number] 11:17:00 16:15:00 Tatsuo 1.443253. 020490.3.61 18 3.615.0.1 5.0.101 01 Results Test Description Test Time Test Comments Results Result Comments Source TEST, SERUM 2022-08-15 04:20:10 Test Item Value Reference Range Interpretation Comme nts PREG SERUM (test code = 0365032062) Negative CIRO (test code = CIRO) Less than 10 IU/L. ?If low titer or ectopic is suspected, resubmit specimen in 48-72 hours. [facility] [id number] 03:49:08 Test Item Value Reference Interpretation Comments Range TROPONIN I (test 0.001 ng/mL See_Comment [Automated code = 4596073420) message] The system which generated this result [...] biotin. Lab Interpretation Normal (test code = 79116-6) [facility]. METABOLIC PANEL (99763)2022-08-15 03:37:26 Test Item Value Reference Range Interpretation Comments NA (test code = 138 mmol/L 135-145 0025818254) K (test code = 3.6 mmol/L 3.5-5.0 1905030839) CL (test code = 105 mmol/L 98-108 5417033417) CO2 TOTAL (test code 24 mmol/L 23-31 = 8828528679) AGAP (test code = 2-16 9364741857) BUN (test code = 9 mg/dL 7-23 5896748183) GLUCOSE (test code = 105 mg/dL 70-110 6093630491) CREATININE (test code 0.75 mg/dL 0.50-1.04 = 6561598358) TOTAL BILI (test code 0.6 mg/dL 0.1-1.1 = 3854781064) CALCIUM (test code = 8.7 mg/dL 8.6-10.6 2448781424) T PROTEIN (test code 6.7 g/dL 6.3-8.2 = 8888815658) ALBUMIN (test code = 3.9 g/dL 3.5-5.0 4923470652) ALK PHOS (test code = 69 U/L 34-122 9829498970) ALTv (test code = 35 U/L 5-35 1742-6) AST(SGOT) (test code 27 U/L 13-40 = 1845888973) eGFR (test code = mL/min/1.73m2 0609460224) CIRO (test code = CIRO) Association of [...] or urine or abnormalities in imaging tests). [facility] WITH [id number] 03:25:05 Test Item Value Reference Range Interpretation Comments WBC (test code = See_Comment [Automated 6690-2) message] The sy stem which generated this [...] RDW-SD (test code = 41.3 fL 39.0-49.9 91909-9) RDW-CV (test code = 12.5 % 12.0-15.5 788-0) PLT (test code = See_Comment H [Automated 777-3) message] The sy stem which generated this result transmitted reference range : 166 - 358 10*3/ ?L. The reference r ozzy was not used to interpret this result as normal/abnormal . MPV (test code = 9.4 fL 9.5-12.9 L 12045-9) NRBC/100 WBC (test See_Comment [Automat ed code = 9518695441) message] The system which generated this result transmitted reference range : 0.0 - 10.0 /100 WBCs. The refer ence range was not u sed to interpret th is result as normal/abnormal . NRBC x10^3 (test code See_Comment [Auto mated = 6716870601) message] The s ystem which generated this result transmitted reference range : 10*3/?L. The reference range was not used to interpret this result as normal/abnormal . GRAN MAT (NEUT) % 55.2 % (test code = 770-8) IMM GRAN % (test code 0.50 % = 9189744701) LYMPH % (test code = 30.7 % 736-9) MONO % (test code = 6.4 % 5905-5) EOS % (test code = 6.2 % 713-8) BASO % (test code = 1.0 % 706-2) GRAN MAT x10^3(ANC) 5.54 10*3/uL 1.88-7.09 (test code = 6300317663) IMM GRAN x10^3 (test 0.05 10*3/uL 0.00-0.06 code = 0699811919) LYMPH x10^3 (test code 3.08 10*3/uL 1.32-3.29 = 731-0) MONO x10^3 (test code 0.64 10*3/uL 0.33-0.92 = 742-7) EOS x10^3 (test code = 0.62 10*3/uL 0.03-0.39 H 711-2) BASO x10^3 (test code 0.10 10*3/uL 0.01-0.07 H = 704-7) Lab Interpretation Abnormal (test code = 33981-9) [facility] [id number] 14:27:33 Test Item Value Reference Interpretation Comments Range Levetiracetam (test <2.0 mcg/mL L Referen ce Range: code = 9897301) 12.0-46.0 To xic level is not we ll established. Interpretation should include a clinical evalua tion. For additional information, pl ease refer tohttp://educat ion.STAT-Diagnostica .Squirro/ faq/DSH382(This link is being provid ed forinformationa l/edu cational purpos es only.) This jose t was developed and i ts analytical performance characteristics have been determined by [employer]. It has not been cleared or appr christiano by theFDA. This assay has been validated pursu ant to the CLIA regulations and is used for clinic al purposes. CIRO (test code = Performing Lab CIRO) *GAGANDEEP [employer] [facility], [address] [place] [phone] Parminder Szymanski MD Lab Interpretation Abnormal (test code = 99153-7) [facility] [id number] 14:27:33 Test Item Value Reference Interpretation Comments Range Levetiracetam (test <2.0 mcg/mL L Referen ce Range: code = 5001443) 12.0-46.0 To xic level is not we ll established. Interpretation should include a clinical evalua tion. For additional information, pl ease refer tohttp://educat ion.STAT-Diagnostica .Squirro/ faq/NDB384(This link is being provid ed forinformationa l/edu cational purpos es only.) This jose t was developed and i ts analytical performance characteristics have been determined by [employer]. It has not been cleared or appr christiano by theFDA. This assay has been validated pursu ant to the CLIA regulations and is used for clinic al purposes. CIRO (test code = Performing Lab CIRO) *GAGANDEEP [employer] [facility], [address] [place] [phone] Parminder Szymanski MD Lab Interpretation Abnormal (test code = 82526-7) [facility], BRAIN, WITHOUT [id number] 23:05:00 Unlisted Reason for Exam - Click Yes and Enter Reason Below->No [facility] 1975 Sex: [...] Date/Time: 05/05/2021 23:05:29 CT, SPINE, CERVICAL, WO [id number] 23:05:00Unlisted Reason for Exam - Click Yes and Enter Reason Below->No [facility] 1975 Sex: [...] Aneudy Asencio MDReport Verified Date/Time: 05/05/2021 23:05:29 [facility] [id number] 21:22:45 Test Item Value Reference Range Interpretation Comments Troponin I (test code = <0.03 0.00-0.15 28811-1) CIRO (test code = CIRO) Troponin I [...] THELMA Lab Interpretation (test Normal code = 02248-2) [facility]rop[facility] [id number] 21:22:45 Test Item Value Reference Range Interpretation Comments Troponin I (test code = <0.03 0.00-0.15 80720-3) CIRO (test code = CIRO) Troponin I [...] THELMA Lab Interpretation (test Normal code = 03340-5) [facility] [id number] 21:22:45 Test Item Value Reference Range Interpretation [...] failure, acidosis, acute neurological disease, and persistent tachyarrhythmia.[employer] Machine Operator ID - JUSTINComprehensive metabolic [id number] 21:20:36 Test Item Value Reference Interpretation Comments Range Protein, Total (test 7.5 See_Comment Specime n code = 2885-2) slightly hemolyzed [Automated message] The system which generated this result transmitted reference range : 6.0 - 8.5 gm/dL . The reference range was not used to interpret this result as normal/abnormal . Albumin (test code = 4.1 g/dL 3.5-5.0 Specime n 12727-6) slightly hemolyzed Alkaline Phosphatase 72 U/L 30-115 (test code = 6768-6) Total Bilirubin 1.0 mg/dL 0.1-1.2 Specimen (test code = 1975-2) slightl y hemolyzed Sodium (test code = 141 meq/L 466-505 1022-2) Potassium (test code 3.8 meq/L 3.6-5.5 Specime n = 2823-3) slightly hemolyzed Chloride (test code 104 meq/L 98-106 = 2075-0) CO2 (test code = 24 meq/L 20-29 2027-9) BUN (test code = 7 mg/dL 10-26 L 3094-0) Creatinine (test 0.81 mg/dL 0.50-1.20 Specimen code = 2160-0) slightly hemolyzed Glucose (test code = 92 mg/dL 70-110 2345-7) Calcium (test code = 9.4 mg/dL 8.5-10.5 53271-9) AST (test code = 21 U/L 5-40 Specimen 1920-8) slightly hemolyzed ALT (test code = 27 U/L 5-50 Specimen 1742-6) slightly hemolyzed EGFR (test code = 76 mL/min/1[place]73 [place] [address]-5) m NOT ACCURATE CREATININE CLEARANCE IN PREDICTING GLOMERULAR FILTRATION RATE . ESTIMATED GFR I S NOT APPLICABLE FOR DIALYSIS PATIENTS. CIRO (test code = [employer] Machine Operator ID - CIRO) JUSTINOperator ID - JUSTINOperator [...] THELMA Lab Interpretation Abnormal (test code = 54508-6) [facility] [id number] 21:20:36 Test Item Value Reference Interpretation Comments Range Protein, Total (test 7.5 See_Comment Specime n code = 2885-2) slightly hemolyzed [Automated message] The system which generated this result transmitted reference range : 6.0 - 8.5 gm/dL . The reference range was not used to interpret this result as normal/abnormal . Albumin (test code = 4.1 g/dL 3.5-5.0 Specime n 11088-6) slightly hemolyzed Alkaline Phosphatase 72 U/L 30-115 (test code = 6768-6) Total Bilirubin 1.0 mg/dL 0.1-1.2 Specimen (test code = 1974-2) slightl y hemolyzed Sodium (test code = 141 meq/L 180-827 9514-2) Potassium (test code 3.8 meq/L 3.6-5.5 Specime n = 2823-3) slightly hemolyzed Chloride (test code 104 meq/L 98-106 = 2075-0) CO2 (test code = 24 meq/L 20-29 2028-9) BUN (test code = 7 mg/dL 10-26 L 3094-0) Creatinine (test 0.81 mg/dL 0.50-1.20 Specimen code = 2160-0) slightly hemolyzed Glucose (test code = 92 mg/dL 70-110 2345-7) Calcium (test code = 9.4 mg/dL 8.5-10.5 36825-8) AST (test code = 21 U/L 5-40 Specimen 1920-8) slightly hemolyzed ALT (test code = 27 U/L 5-50 Specimen 1742-6) slightly hemolyzed EGFR (test code = 76 mL/min/1.[place] [address]-2) m NOT ACCURATE CREATININE CLEARANCE IN PREDICTING GLOMERULAR FILTRATION RATE . ESTIMATED GFR I S NOT APPLICABLE FOR DIALYSIS PATIENTS. CIRO (test code = [employer] Machine Operator ID - CIRO) JUSTINOperator ID - JUSTINOperator [...] THELMA Lab Interpretation Abnormal (test code = 38320-3) [facility] Hospital[facility]PRE[facility]IVE METABOLIC [id number] 21:20:36 Test Item Value Reference Range Interpretation [...] S NOT APPLICABLE FOR DIALYSIS PATIEN TS. [employer] Machine Operator ID - JUSTINOperator ID - JUSTINOperator ID - JUSTINOperator ID - JUSTINOperator ID - JUSTINOperator ID - JUSTINOperator ID - JUSTINOperator ID - JUSTINOperator ID - JUSTINOperator ID - JUSTINOperator ID - JUSTINOperator ID - JUSTINOperator ID - JUSTINOperator ID - JUSTINOperator ID - JUSTINOperator ID - JUSTINOperator ID - JUSTINOperator ID - JUSTINOperator ID - JUSTINCBC with platelet count + automated [id number] 20:51:36 Test Item Value Reference Range Interpretation Comments WBC (test code = 6690-2) 12.0 See_Comment H [A utomated message] The system [employer] generated this result transmitted ref erence range: 4.0 - 10 .0 K/L. The refe rence range was not u sed to interpret this result as normal/abnor mal. RBC (test code = 789-8) 4.84 See_Comment [Au tomated message] The system [employer] generated this result transmitted ref erence range: 4.00 - 5 .00 M/L. The refe rence range was not u sed to interpret this result as normal/abnor mal. MCHC (test code = 786-4) 34.8 See_Comment [A utomated message] The system [employer] generated this result transmitted ref erence range: [...] H [Aut omated message] 777-3) The system [employer] generated this result transmitted ref erence range: 150 - 43 0 K/CU MM. The referen ce range was not u sed to interpret this result as normal/abnor mal. MPV (test code = 9.7 fL 6.0-11.5 86243-8) nRBC (test code = 413) 0 See_Comment [Aut omated message] The system [employer] generated this result transmitted ref erence range: [...] See_Comment [Aut omated message] 670) The system [employer] generated this result transmitted ref erence range: 1.80 - 8 .00 K/L. The refe rence range was not u sed to interpret this result as normal/abnor mal. # Lymphs (test code = 3.61 See_Comment [Auto mated message] 414) The system [employer] generated this result transmitted ref erence range: 1.48 - 4 .50 K/L. The refe rence range was not u sed to interpret this result as normal/abnor mal. # Monos (test code = 0.86 See_Comment [Autom ated message] 415) The system [employer] generated this result transmitted ref erence range: 0.00 - 1 .30 K/L. The refe rence range was not u sed to interpret this result as normal/abnor mal. # Eos (test code = 416) 0.41 See_Comment [Au tomated message] The system [employer] generated this result transmitted ref erence range: 0.00 - 0 .50 K/L. The refe rence range was not u sed to interpret this result as normal/abnor mal. # Baso (test code = 417) 0.10 See_Comment [A utomated message] The system [employer] generated this result transmitted ref erence range: 0.00 - 0 .20 K/L. The refe rence range was not u sed to interpret this result as normal/abnor mal. Immature 0 % 0-0 Granulocytes-Relative (test code = 2801) Lab Interpretation (test Abnormal code = 73261-5) [facility] with platelet count + automated [id number] 20:51:36 Test Item Value Reference Range Interpretation Comments WBC (test code = 6690-2) 12.0 See_Comment H [A utomated message] The system [employer] generated this result transmitted ref erence range: 4.0 - 10 .0 K/L. The refe rence range was not u sed to interpret this result as normal/abnor mal. RBC (test code = 789-8) 4.84 See_Comment [Au tomated message] The system [employer] generated this result transmitted ref erence range: 4.00 - 5 .00 M/L. The refe rence range was not u sed to interpret this result as normal/abnor mal. MCHC (test code = 786-4) 34.8 See_Comment [A utomated message] The system [employer] generated this result transmitted ref erence range: [...] H [Aut omated message] 777-3) The system [employer] generated this result transmitted ref erence range: 150 - 43 0 K/CU MM. The referen ce range was not u sed to interpret this result as normal/abnor mal. MPV (test code = 9.7 fL 6.0-11.5 53003-9) nRBC (test code = 413) 0 See_Comment [Aut omated message] The system [employer] generated this result transmitted ref erence range: [...] See_Comment [Aut omated message] 670) The system [employer] generated this result transmitted ref erence range: 1.80 - 8 .00 K/L. The refe rence range was not u sed to interpret this result as normal/abnor mal. # Lymphs (test code = 3.61 See_Comment [Auto mated message] 414) The system [employer] generated this result transmitted ref erence range: 1.48 - 4 .50 K/L. The refe rence range was not u sed to interpret this result as normal/abnor mal. # Monos (test code = 0.86 See_Comment [Autom ated message] 415) The system [employer] generated this result transmitted ref erence range: 0.00 - 1 .30 K/L. The refe rence range was not u sed to interpret this result as normal/abnor mal. # Eos (test code = 416) 0.41 See_Comment [Au tomated message] The system [employer] generated this result transmitted ref erence range: 0.00 - 0 .50 K/L. The refe rence range was not u sed to interpret this result as normal/abnor mal. # Baso (test code = 417) 0.10 See_Comment [A utomated message] The system [employer] generated this result transmitted ref erence range: 0.00 - 0 .20 K/L. The refe rence range was not u sed to interpret this result as normal/abnor mal. Immature 0 % 0-0 Granulocytes-Relative (test code = 2801) Lab Interpretation (test Abnormal code = 06932-8) [facility] [place]/PLT COUNT & AUTO [id number] 20:51:36 Test Item Value Reference Range Interpretation [...] (BEAKER) (test code = 2801) Continuous EEG vedvntmqak7534-75-35 01:51:44CONTINUOUS VIDEO-EEG MONITORING REPORT - END OF STUDY [id number] Date of : 1975 Initial Study Start [...] seizures captured. Onelia Hair MD ICD-10 Code: E648Czhdkskrpt EEG cuvnzkcgle5084-09-68 12:59:42 CONTINUOUS VIDEO-EEG MONITORING REPORT Patient Name: Shanna BillsN#: [id number] Date of : 1975 Initial Study Start date: 12/04/2020Initial Study Start Time: 08 Current Study Start Date: 12/04/2020urrent Study Start Time: 08: Current Study End Date: 12/04/2020urrent Study End [...] seizures captured. Onelia Hair MD ICD-10 Code: W717EXA [id number] 05:31:10 Test Item Value Reference Range Interpretation Comments Ventricular rate (test code = 253) Atrial rate (test code = 255) [place] interval (test code = 266) QRSD interval [...] 04:27,-Vent. rate has increased BY 62 BPM- [place] [address] inxp4477-35-85 05:31:10 Test Item Value Reference Range Interpretation Comments Ventricular rate (test code = 253) Atrial rate (test code = 255) [place] interval (test code = 266) QRSD interval [...] 04:27,-Vent. rate has increased BY 62 BPM- [place] [address] [id number] 05:31:10 Test Item Value Reference Range Interpretation Comments Ventricular rate (test code = 253) Atrial rate (test code = 255) [place] interval (test code = 266) QRSD interval [...] 04:27,-Vent. rate has increased BY 62 BPM- [facility] (routine) - Baseline [id number] 01:47:11VIDEO-EEG RECORDING AWAKE & ASLEEP - Baseline [...] Hair MD ICD-10 Code: R569CT Head Wo Lopfnour2010-14-57 02:53:14EXAMINATION: CT HEAD WO CONTRAST CLINICAL HISTORY: [...] No CT evidence of acute intracranial abnormality. [facility]-[id number] Interface, Radiology Results Incoming - 12/03/2020 9:56 PM CDT EXAMINATION: CT [...] IMPRESSION:1. No CT evidence of acute intracranial abnormality.[facility]-[id number] [facility] [Presence] in Respiratory specimen by SOREN with probe [id number] 02:03:42 Test Item Value Reference Range Interpretation Comments SARS-CoV-2 (COVID-19) RNA Not detected Not-Detected [Presence] in Respiratory specimen by SOREN with probe detection (test code = 24763-5) Whether patient is employed in a healthcare setting (test code = 73092-3) Whether the patient has symptoms related to condition of interest (test code = 56752-8) Patient was hospitalized because of this condition (test code = 19397-6) Whether the patient was admitted to intensive care unit (ICU) for condition of interest (test code = 67451-3) Whether patient resides in a congregate care setting (test code = 22023-3) [facility] 1 Vw Ztftnsai8276-52-71 23:58:22EXAMINATION: XR CHEST 1 VW PORTABLE CLINICAL [...] no consolidation or effusion.3.The bones are intact.1D2RAD_P A56Cdmfsfjcc HospitalCRITICAL [id number] 21:55:13Bladimir Brumfield MD 12/04/2020 3:12 PMCritical CarePerformed by: Bladimir Brumfield MDAuthorized by: Bladimir Cisse MD Critical care provider statement: Critical care time (minutes): 35 Critical caretime was exclusive of: Separately billable procedures and treating other patients Critical care was necessary to treat or prevent imminent or life-threatening deterioration of the following conditions:EXTRACTOR FILLER failure or compromise Critical care was time [...] care for this patient from another provider.: [facility] Preliminary Interpretation - Not an [id number] 21:55:13 Bladimir Brumfield MD 12/04/2020 3:12 [facility] [place] Interpretation - Not an OrderPerformed by: Bladimir Brumfield MDAuthorized by: Bladimir Brumfield MD ECG reviewed by ED Physician in the absence of a senior developer: yes Rate: ECG rate: 119Rhythm: Rhythm: sinus tachycardia Ectopy: Ectopy: none QRS: QRS axis: Normal QRS intervals: NormalConduction: Conduction: normal ST segments: ST segments: NormalT waves: T waves: normalUrine [id number] 01:10:19 Test Item Value Reference Range Interpretation Comments Urine culture (test SEE COMMENT Bacteriu mario screen code = 8149679) negative. [facility] [id number] 01:10:19 Test Item Value Reference Range Interpretation Comments Urine culture (test SEE COMMENT Bacteriu mario screen code = 9688070) negative. [facility] [id number] 01:10:19 Test Item Value Reference Range Interpretation Comments Urine culture (test SEE COMMENT Bacteriu mario screen code = 2436730) negative. [facility][U] XRAY HAND MIN 3 VWS RIGHT [id number] 15:17:00Images acquired, not reported on this accession number.[facility] Hand 3+ Vw Right 2020-11-03 04:37:16EXAMINATION: XR HAND 3 VW RIGHT INDICATION: dog bite COMPARISON: None IMPRESSION: 3 views of the right hand were obtained.No visible acute fracture or dislocation.No visible radiodense foreign material. [facility]- MPHYMATH Interface, Radiology Results Incoming - 11/02/2020 11:40 PM CDT EXAMINATION: XR HAND 3 VW RIGHTINDICATION: dog biteCOMPARISON: NoneIMPRESSION:3 views of the right hand were obtained.No visible acute fracture or dislocation.No visible radiodense foreign material.[facility] ([facility] 2020-09-17 16:59:35Date of Study Completion: [...] movements noted on this tracing by the point of care technician did not have an epileptic correlate. [...] in Respiratory specimen by SOREN with probe snyghvkny5920-88-32 00:31:49 Test Item Value Reference Range Interpretation Comments SARS-CoV-2 (COVID-19) RNA Not detected Not-Detected [Presence] in Respiratory specimen by SOREN with probe detection (test code = 34128-7) [facility] (routine)2020-09-11 20:16:18Date of Service: [...] statistical likelihood of detecting interictal discharges, and shouldbe considered if pursuing a diagnosis of epilepsy.SARS-CoV-2 (COVID-19) RNA [Presence] in Respiratory specimen by SOREN with probe tvvxcpgry4037-13-06 07:15:55 Test Item Value Reference Range Interpretation Comments SARS-CoV-2 (COVID-19) RNA Not detected Not-Detected [Presence] in Respiratory specimen by SOREN with probe detection (test code = 41710-6) [facility] Wo Osjylgms5914-45-85 05:45:01EXAMINATION: CT ABDOMEN PELVIS WO CONTRAST HISTORY: [...] No bowel obstruction. [id number]_PS02Hm Interface, Radiology Results [facility] - 09/10/2020 11:48 PM CST EXAMINATION: CT [...] No high grade enterocolitis. No bowel obstruction.1D2RA D_PS02[facility] ([facility] RNA [Presence] in Respiratory specimen by SOREN with probe awzseuenb3973-84-16 05:23:42 Test Item Value Reference Range Interpretation Comments SARS-CoV-2 (COVID-19) RNA Not detected Not-Detected [Presence] in Respiratory specimen by SOREN with probe detection (test code = 10374-2) [facility] Complete, (w Contrast, Strain and 3D if needed)2020-05-11 04:52:19 Test Item Value Reference Range Interpretation Comments Velocity Ratio (V1/V2) 0.85 m/s (test code = 4689) IVS,d (test code = 1.00 cm 2173522849) EF (test code = 52.31 % 1271399206) Ascending aorta (test 2.67 cm code = 9751240098) LVPWD,d (test code = 1.00 cm 4872114111) AoV Mean PG (test code mmHg = 3114626186) AV LVOT peak gradient mmHg (test code = 5075157333) MV mean gradient (test mmHg code = 8053422352) MV valve area p 1/2 3.31 cm2 method (test code = 1016386074) PV Pk Grad (test code = mmHg 8600847313) E/A ratio (test code = 2508369738) E wave decelartion time msec (test code = 9460423285) LVOT Diam,S (test code 1.98 cm = 7182247626) LVOT area (test code = 3.08 cm2 5829176302) LVOT Vmax (test code = 0.96 m/s 4137617748) LVOT VTI (test code = 0.21 m 0176981185) RVOT Vmax (test code = 0.58 m/s 1188209140) AoV Peak PG (test code mmHg = 5536894385) MV Peak E Giuliano (test 0.94 m/s code = 9427936592) MV stenosis pressure 66.39 ms 1/2 time (test code = 2622103312) MV Peak A Giuliano (test 0.74 m/s code = 5389463007) Ao Root Diameter (test 2.99 cm code = 2568909823) AoV Area, Vmax (test 2.60 cm2 code = 3470282510) AoV Area, VTI (test 2.95 cm2 code = 7830909018) AoV Vmax (test code = 1.13 m/s 4627088731) IVS/LVPW,2D (test code = 2254535025) Left Atrium Dimension 3.10 cm Anterior (test code = 5200767039) LV,d (test code = 4.15 cm 2237107932) LV,s (test code = 3.05 cm 6665314852) PV VMAX (test code = 0.78 m/s 8827500981) TR Vpeak (test code = 1.85 mm/s 0338996026) MV E A ratio (test code = 9308446511) TR pk grad (test code = mmHg 4285183022) MR peak grad (test code mmHg = 6245685210) Ao Root Diameter (test 2.99 cm code = 3852034120) LV SYS VOL (test code = 36.41 ml 2980627642) LV RIOS VOL (test code 76.34 ml = 3193419545) LV SV Teich 2D (test 39.93 ml code = 8580861993) LV Vol s Teich PSAX 36.41 ml (test code = 8778844357) MV Vmax (test code = 0.89 m 4549981684) MV VTI Tips (test code 0.22 m = 7490486472) RVOT pk grad (test code mmHg = 2962195591) AoV Vmn (test code = 2778674037) LV FS Cube 2D (test code = 5625775033) LV FS Teich 2D (test code = 1204914588) AoV VTI (test code = 0.22 m 2314837666) LA Area d A4C (test 12.41 cm2 code = 2281787486) LV EF,2D (test code = 60.32 % 6519493663) MR Vmax (test code = 4.15 m/s 8046607466) MV AE ratio (test code = 1611305118) LVOT Vmn (test code = 5212726027) Aov area Vmn (test code 2.47 cm2 = 6736497252) LA Vol d MOD A4C (test 27.63 ml code = 7740397928) LVOT mean grad (test mmHg code = 1394555830) MAX Pred HR (test code = 1679523567) 85 of MPHR (test code = 1762355014) Calc MPHR (test code = bpm 2272579738) LV SV Cube 2D (test 43.08 ml code = 0427999982) LV vol d cube 2D (test 71.42 ml code = 1432393842) LV vol s cube 2D (test 28.34 ml code = 9581943739) MV Decel slope (test 4.12 m/s2 code = 3690012352) Pred Exer Dur R1 (test code = 4858618898) Pred METS R1 (test code = 9471595052) CIRO (test code = CIRO) Left Ventricle: [...] regurgitation. No evidence of aortic valve stenosis. [facility] duplex venous upper wilzjbykq8618-78-97 06:14:50 EXAMINATION: US DUPLEX VENOUS UPPER EXTREMITY [...] visualized veins of the right upper extremity. [facility]- [id number] [facility], Radiology Results 05/08/2020 1:17 AM CDT EXAMINATION: [...] the visualized veins of the right upper extremity.[facility]-[id number] HospitalEE (routine)2020-05-07 22:01:23Date of Service: May 07, 2020.Date [...] was recorded continuously. True eye leads were notemployed. True temporal leads were not employed. EEG Description:When maximally aroused, the awake background was characterized by a well-developed 9-10 Hz, 20 to 40 microvolts symmetric posterior rhythm that attenuated appropriately to eye opening. The patient becomes drowsy over the course of the recording as evidenced by the dropout of the posterior rhythm and the emergence of a diffuse 2 to 7 Hz,40 to 60 microvolts irregular slow activity. Sleep Recording:Stage II sleep was sustained for at least 3 minutes and was characterized by symmetric sleep spindles, vertex waves, and K-complexes. Symmetric positive occipital sharp transients of sleep were also observed. Slow-wave sleep and REM were notdocumented. Activation Procedures:Hyperventilation was not performed. Photic stimulation utilizing fl anuel frequencies ranging from 5 to 30 Hz [...] a diagnosis of epilepsy.MRI Brain W Wo Xplbnauu8335-70-59 03:27:20EXAMINATION: MRI BRAIN W WO CONTRAST CLINICAL [...] abnormal susceptibility. Basal cisterns are clear. Major int racranial flow voids are maintained. Midline structures are [...] or suspicious pericallosal lesions with a perivenular morphology.1M2RAD_PS01[facility]ARS[facility] (COVID-19) RNA [Presence] in Respiratory specimen by SOREN with probe hvnfzjprz5259-36-53 12:31:16 Test Item Value Reference Range Interpretation Comments SARS-CoV-2 (COVID-19) RNA Not detected Not-Detected [Presence] in Respiratory specimen by SOREN with probe detection (test code = 96019-5) [facility] ([facility]) 2020-02-22 21:37:00 Test Item Value Reference Range Interpretation Comments SARS-COV2/RT-PCR (test code = Positive Not Detected, Negative A A 9968574) SARS-COV-2 PERFORMING LAB CPL (test code = 2586576) CT, CHEST, WITHOUT [id number] 00:54:00Reason for exam:->cough, ?covidIs the patient ?->NoWhat [...] MDReport Verified Date/Time: 02/21/2020 00:54:38 PREGNANCY SCREEN, [id number] 00:28:00 Test Item Value Reference Range Interpretation Comments TEST URINE (BEAKER) (test Negative code = 583) CBC W/PLT COUNT & AUTO [id number] 22:46:00 Test Item Value Reference Range Interpretation [...] (BEAKER) (test code = 2801) LACTIC ACID, [id number] 22:30:00 Test Item Value Reference Range Interpretation Comments LACTATE BLOOD VENOUS 1.38 mmol/L 0.50-2.00 Specime n slightly (2) (BEAKER) (test hemolyzed code = 0692) [employer]ize Machine Operator ID - JUSTINBASIC METABOLIC [id number] 22:10:00 Test Item Value Reference Range Interpretation [...] S NOT APPLICABLE FOR DIALYSIS PATIEN TS. Alodize Machine Operator ID - [id number] 22:09:00 Test Item Value Reference Range Interpretation [...] failure, acidosis, acute neurological disease, and persistent tachyarrhythmia.[employer] Machine Operator ID - [id number], CHEST, 1 VIEW, NON [id number] 20:58:00Reason for exam:->coughIs the patient ?- >NoShould [...] Asencio MDReport Verified Date/Time: 02/20/2020 20:58:56 SARS-COV2/RT-PCR ([facility])2020-02-06 03:25:00 Test Item Value Reference Range Interpretation Comments SARS-COV2/RT-PCR (test code = Positive Not Detected, Negative A A 6099039) SARS-COV-2 PERFORMING LAB CPL (test code = 9236930) URINALYSIS W/ [id number] 08:24:00 Test Item Value Reference Range Interpretation [...] 1663) SOURCE(BEAKER) (test code = 2795) SCREEN, [id number] 08:00:00 Test Item Value Reference Range Interpretation Comments TEST URINE (BEAKER) (test Negative code = 583) RAD, ABDOMEN/KUB 1 VIEW [id number] 07:21:00Reason for exam:->FEVERReason for exam:->DIARRHEAReason for exam:->EMESISFINAL REPORT RAD, ABDOMEN/KUB 1 VIEW AP CLINICAL INDICATION: FEVERDIARRHEAEMESIS COMPARISON: None TECHNIQUE: Single, frontal radiograph of the abdomen. FINDINGS: The bowel gas pattern is nonspecific, but nonobstructive. IUD is present. The regional skeleton is intact. IMPRESSION: Nonspecific, nonobstructive bowel gas pattern. Signed: Ling Jin MDReport Verified Date/Time: 02/04/2020 07:21:42 Reading Location: [facility] Radiology Reading Room COMPREHENSIVE METABOLIC [id number] 07:14:00 Test Item Value Reference Range Interpretation [...] S NOT APPLICABLE FOR DIALYSIS PATIEN TS. Alodize Machine Operator ID - [id number] 06:59:00 Test Item Value Reference Range Interpretation Comments LIPASE (BEAKER) (test code = 749) 9 U/L 6-51 Alodize Machine Operator ID - [id number] W/PLT COUNT & AUTO [id number] 06:41:00 Test Item Value Reference Range Interpretation [...] (test code = 2801) RAPID INFLUENZA A&B [id number] 19:09:00 Test Item Value Reference Range Interpretation Comments RAPID INFLUENZA A AG (BEAKER) Negative Negative, Inconclusive (test code = 1622) RAPID INFLUENZA B AG (BEAKER) Negative Negative, Inconclusive (test code = 1623) TROPONIN [id number] 18:51:00 Test Item Value Reference Range Interpretation [...] failure, acidosis, acute neurological disease, and persistent tachyarrhythmia.Alodize Machine Operator ID - JUSTINPREGNANCY SCREEN, [id number] 18:49:00 Test Item Value Reference Range Interpretation Comments TEST URINE (BEAKER) (test Negative code = 583) URINALYSIS W/ [id number] 18:49:00 Test Item Value Reference Range Interpretation [...] code = 1663) SOURCE(BEAKER) (test code = 3602) BASIC METABOLIC [id number] 18:44:00 Test Item Value Reference Range Interpretation [...] S NOT APPLICABLE FOR DIALYSIS PATIEN TS. Alodize Machine Operator ID - AUSTINFRANCOIS, CHEST, 1 VIEW, NON [id number] 18:41:00Reason for exam:->COUGHReason for exam:->SHORTNESS OF BREATHReason [...] IMPRESSION: No acute cardiopulmonary abnormality. Signed: Vandana Edwardsepkimberly Verified Date/Time: 10/12/2019 18:41:43 Electronically signed by: VANDANA EDWARDS MD on10/12/2019 06:41 PMCBC W/PLT COUNT & AUTO [id number] 18:29:00 Test Item Value Reference Range Interpretation [...] PERCENT (BEAKER) (test code = 2801) CT, [id number] 16:47:00Reason for exam:->FEVERReason for exam:->LEG PAINIs the [...] by lack of intravenous contrast. Signed: Raymond Quigleyeport Verified Date/Time: 02/15/2019 16:47:32 Reading Location: [address] Reading Room URINALYSIS W/ [id number] 15:41:00 Test Item Value Reference Range Interpretation [...] 1663) SOURCE(BEAKER) (test code = 2795) SCREEN, [id number] 15:29:00 Test Item Value Reference Range Interpretation Comments TEST URINE (BEAKER) (test Negative code = 583) COMPREHENSIVE METABOLIC [id number] 15:26:00 Test Item Value Reference Range Interpretation [...] S NOT APPLICABLE FOR DIALYSIS PATIEN TS. [id number] 15:26:00 Test Item Value Reference Range Interpretation Comments LIPASE (BEAKER) (test code = 749) 20 U/L 6-51 [id number] 15:17:00 Test Item Value Reference Range Interpretation Comments AMYLASE (BEAKER) (test 42 U/L 30-110 Speci men slightly code = 349) hemolyzed CBC W/PLT COUNT & AUTO [id number] 15:03:00 Test Item Value Reference Range Interpretation [...] = 2801) RAD, KNEE, COMPLETE (4 VIEWS), [id number] 23:20:00Reason for exam:->MOTOR VEHICLE CRASHReason for exam:->HIP [...] Friedmaneport Verified Date/Time: 11/19/2018 23:20:49 Reading Location: [address] Body Reading Room RAD, KNEE, COMPLETE (4 VIEWS), [id number] 23:20:00Reason for exam:- >MOTOR VEHICLE CRASHReason for [...] Friedman Verified Date/Time: 11/19/2018 23:20:49 Reading Location: [address] Body Reading Room RAD, HIP, 2 VIEWS, [id number] 23:06:00Reason for exam:->MOTOR VEHICLE CRASHReason for exam:->HIP PAINReason for exam:->ARM INJURYReason for exam:->SHOULDER INJURYFINAL REPORT Right hip series, 2 views Clinical Indication: Right Hip Pain Impression: No evidence of acute fracture or traumatic malalignment. Note: If occult injury is suspected,consider CT. Signed: Brian Garibay Verified Date/Time: 11/19/2018 23:06:27 Reading Location:[address] Reading Room CT, [id number] 22:44:00Reason for exam:->MOTOR VEHICLE CRASHReason for exam:->HIP [...] Alcantara Verified Date/Time: 11/19/2018 22:44:18 Reading Location: [address] Reading Room RAD, SHOULDER, COMPLETE (MIN 2 VIEWS), [id number] 22:41:00Reason for exam:->MOTOR VEHICLE CRASHReason for exam:->HIP PAINReason for exam:->ARM INJURYReason for exam:->SHOULDER INJURYFINAL REPORT Right shoulder series - 3 VIEWS Clinical Indication: Right shoulder pain following traumatic injury. Impression: No evidence of acute fracture or traumatic malalignment. Signed: Brian Garibay Verified Date/Time: 11/19/2018 22:41:16 Reading Location: [address] Reading Room URINALYSIS W/ [id number] 21:44:00 Test Item Value Reference Range Interpretation [...] 1663) SOURCE(BEAKER) (test code = 2795) SCREEN, [id number] 21:40:00 Test Item Value Reference Range Interpretation Comments TEST URINE (BEAKER) (test Negative code = 583) URINALYSIS W/ [id number] 21:41:00 Test Item Value Reference Range Interpretation [...] 1663) SOURCE(BEAKER) (test code = 2795) SCREEN, [id number] 21:37:00 Test Item Value Reference Range Interpretation Comments TEST URINE (BEAKER) (test Negative code = 583) RAPID INFLUENZA A&B [id number] 20:49:00 Test Item Value Reference Range Interpretation Comments RAPID INFLUENZA A AG (BEAKER) Negative Negative, Inconclusive (test code = 1622) RAPID INFLUENZA B AG (BEAKER) Negative Negative, Inconclusive (test code = 1623) CT, [id number] 08:31:00Reason for exam:->ABDOMINAL PAINReason for exam:->FEVERReason for [...] MDReport Verified Date/Time: 07/31/2017 08:31:14 Reading Location: [facility] Diagnostic Imaging Reading Room - [place] [address] RAD, CHEST, 1 VIEW, NON [id number] 08:23:00Reason for exam:->ABDOMINAL PAINReason for exam:->FEVERReason for [...] MDReport Verified Date/Time: 07/31/2017 08:23:48 Reading Location: [address] Radiology Reading Room [id number] 08:07:00 Test Item Value Reference Range Interpretation Comments LIPASE (BEAKER) (test code = 749) 34 U/L 6-51 URINALYSIS W/ REFLEX URINE [id number] 08:06:00 Test Item Value Reference Range Interpretation [...] code = 1663) SOURCE(BEAKER) (test code = 9465) COMPREHENSIVE METABOLIC [id number] 08:06:00 Test Item Value Reference Range Interpretation [...] S NOT APPLICABLE FOR DIALYSIS PATIEN TS. [id number] 07:58:00 Test Item Value Reference Range Interpretation Comments AMYLASE (BEAKER) (test code = 349) 52 U/L 30-110 SCREEN, [id number] 07:52:00 Test Item Value Reference Range Interpretation Comments TEST URINE (BEAKER) (test Negative code = 583) CBC W/PLT COUNT & AUTO [id number] 07:48:00 Test Item Value Reference Range Interpretation [...] 0.00-0.20 (test code = 417) BASIC METABOLIC [id number] 21:32:00 Test Item Value Reference Range Interpretation [...] DIALYSIS PATIEN TS. LACTIC ACID, VENOUS, WHOLE [id number] 21:19:00 Test Item Value Reference Range Interpretation Comments LACTATE BLOOD VENOUS 0.9 mmol/L 0.5-2.2 Specime n slightly (2) (BEAKER) (test hemolyzed code = 6062) Effective 12/15/2015: Units/Reference Range ChangeNew: 0.5-2.2 mmol/L Previous: 5- 18 mg/dLCBC W/PLT COUNT & AUTO [id number] 21:07:00 Test Item Value Reference Range Interpretation [...] L 0.00-0.20 (test code = 417) SCREEN, [id number] 18:50:00 Test Item Value Reference Range Interpretation Comments TEST URINE (BEAKER) (test Negative code = 583) URINE [id number] 09:20:00 Test Item Value Reference Range Interpretation [...] = 480) CBC W/PLT COUNT & AUTO [id number] 16:52:00 Test Item Value Reference Range Interpretation [...] 0.00-0.20 (test code = 417) COMPREHENSIVE METABOLIC [id number] 16:28:00 Test Item Value Reference Range Interpretation [...] S NOT APPLICABLE FOR DIALYSIS PATIEN TS. [id number] 16:22:00 Test Item Value Reference Range Interpretation Comments LIPASE (BEAKER) (test code = 749) 26 U/L 6-51 URINALYSIS W/ REFLEX URINE [id number] 15:52:00 Test Item Value Reference Range Interpretation [...] 1663) SOURCE(BEAKER) (test code = 2795) SCREEN, [id number] 15:49:00 Test Item Value Reference Range Interpretation Comments TEST URINE (BEAKER) (test Negative code = 583) URINE AND [id number] 08:40:00 Test Item Value Reference Range Interpretation Comments UA Leuk Est (test code Trace *ABN*(02/13/16 3:40 = UA Leuk Est) AM) [facility] AND [id number] 08:40:00 Test Item Value Reference Range Interpretation Comments UA Nitrite (test code Negative (02/13/16 3:40 = UA Nitrite) AM) [facility] [id number] 08:40:00 Test Item Value Reference Range Interpretation Comments UA Urobilinogen (test code = UA 0.2 0.1-1.0 Urobilinogen) [facility] [id number] 08:40:00 Test Item Value Reference Range Interpretation Comments UA Ketones (test code Negative *NA*(02/13/16 = UA Ketones) 3:40 AM) [facility] [id number] 08:40:00 Test Item Value Reference Range Interpretation Comments UA Glucose (test code Negative (02/13/16 3:40 = UA Glucose) AM) [facility] [id number] 08:40:00 Test Item Value Reference Range Interpretation Comments UA Blood (test code = Large *ABN*(02/13/16 UA Blood) 3:40 AM) [facility] [id number] 08:40:00 Test Item Value Reference Range Interpretation Comments UA Bili (test code = Negative *NA*(02/13/16 UA Bili) 3:40 AM) [facility] [id number] 08:40:00 Test Item Value Reference Range Interpretation Comments UA Protein (test code = UA Protein) 30 mg/dL [facility] [id number] 08:40:00 Test Item Value Reference Range Interpretation Comments UA Spec Grav (test code = UA Spec 1.015 1 Grav) [facility] [id number] 08:40:00 Test Item Value Reference Range Interpretation Comments UA pH (test code = UA pH) 7.0 1 5.0-8.0 [facility] [id number] 08:40:00 Test Item Value Reference Range Interpretation Comments UA Color (test code = Red *ABN*(02/13/16 3:40 UA Color) AM) [facility] [id number] 08:40:00 Test Item Value Reference Range Interpretation Comments UA Turbidity (test code Bloody *ABN*(02/13/16 = UA Turbidity) 3:40 AM) [facility] [id number] 08:40:00 Test Item Value Reference Range Interpretation Comments UA Bacteria (test code = UA Occasional /HPF Bacteria) [facility] [id number] 08:40:00 Test Item Value Reference Range Interpretation Comments UA RBC (test Packed See_Comment [Automated mes shirley] code = UA RBC) *ABN*(02/13/16 3:40 The syst em which AM) generated this result transmitted ref erence range: <=2. The reference range was not used to int erpret this result as normal/abnormal . [facility] [id number] 08:40:00 Test Item Value Reference Range Interpretation Comments UA WBC (test code = UA WBC) 3-5 /HPF [facility] [id number] 08:40:00 Test Item Value Reference Range Interpretation Comments UA Sq Epi (test code = UA Sq Epi) Rare /LPF [facility] [id number] 08:40:00 Test Item Value Reference Range Interpretation Comments UA Leuk Est (test code Trace *ABN*(02/13/16 3:40 = UA Leuk Est) AM) [facility] [id number] 08:40:00 Test Item Value Reference Range Interpretation Comments UA Nitrite (test code Negative (02/13/16 3:40 = UA Nitrite) AM) [facility] [id number] 08:40:00 Test Item Value Reference Range Interpretation Comments UA Urobilinogen (test code = UA 0.2 0.1-1.0 Urobilinogen) [facility] [id number] 08:40:00 Test Item Value Reference Range Interpretation Comments UA Ketones (test code Negative *NA*(02/13/16 = UA Ketones) 3:40 AM) [facility] [id number] 08:40:00 Test Item Value Reference Range Interpretation Comments UA Glucose (test code Negative (02/13/16 3:40 = UA Glucose) AM) [facility] [id number] 08:40:00 Test Item Value Reference Range Interpretation Comments UA Blood (test code = Large *ABN*(02/13/16 UA Blood) 3:40 AM) [facility] [id number] 08:40:00 Test Item Value Reference Range Interpretation Comments UA Bili (test code = Negative *NA*(02/13/16 UA Bili) 3:40 AM) [facility] [id number] 08:40:00 Test Item Value Reference Range Interpretation Comments UA Protein (test code = UA Protein) 30 mg/dL [facility] [id number] 08:40:00 Test Item Value Reference Range Interpretation Comments UA Spec Grav (test code = UA Spec 1.015 1 Grav) [facility] [id number] 08:40:00 Test Item Value Reference Range Interpretation Comments UA pH (test code = UA pH) 7.0 1 5.0-8.0 [facility] [id number] 08:40:00 Test Item Value Reference Range Interpretation Comments UA Color (test code = Red *ABN*(02/13/16 3:40 UA Color) AM) [facility] [id number] 08:40:00 Test Item Value Reference Range Interpretation Comments UA Turbidity (test code Bloody *ABN*(02/13/16 = UA Turbidity) 3:40 AM) [facility] [id number] 08:40:00 Test Item Value Reference Range Interpretation Comments UA Bacteria (test code = UA Occasional /HPF Bacteria) [facility] [id number] 08:40:00 Test Item Value Reference Range Interpretation Comments UA RBC (test Packed See_Comment [Automated mes shirley] code = UA RBC) *ABN*(02/13/16 3:40 The syst em which AM) generated this result transmitted ref erence range: <=2. The reference range was not used to int erpret this result as normal/abnormal . [facility] [id number] 08:40:00 Test Item Value Reference Range Interpretation Comments UA WBC (test code = UA WBC) 3-5 /HPF [facility] [id number] 08:40:00 Test Item Value Reference Range Interpretation Comments UA Sq Epi (test code = UA Sq Epi) Rare /LPF [facility] [id number] 08:40:00 Test Item Value Reference Range Interpretation Comments UA Leuk Est (test code Trace *ABN*(02/13/16 3:40 = UA Leuk Est) AM) [facility] [id number] 08:40:00 Test Item Value Reference Range Interpretation Comments UA Nitrite (test code Negative (02/13/16 3:40 = UA Nitrite) AM) [facility] [id number] 08:40:00 Test Item Value Reference Range Interpretation Comments UA Urobilinogen (test code = UA 0.2 0.1-1.0 Urobilinogen) [facility] [id number] 08:40:00 Test Item Value Reference Range Interpretation Comments UA Ketones (test code Negative *NA*(02/13/16 = UA Ketones) 3:40 AM) [facility] [id number] 08:40:00 Test Item Value Reference Range Interpretation Comments UA Glucose (test code Negative (02/13/16 3:40 = UA Glucose) AM) [facility] [id number] 08:40:00 Test Item Value Reference Range Interpretation Comments UA Blood (test code = Large *ABN*(02/13/16 UA Blood) 3:40 AM) [facility] [id number] 08:40:00 Test Item Value Reference Range Interpretation Comments UA Bili (test code = Negative *NA*(02/13/16 UA Bili) 3:40 AM) [facility] [id number] 08:40:00 Test Item Value Reference Range Interpretation Comments UA Protein (test code = UA Protein) 30 mg/dL [facility] [id number] 08:40:00 Test Item Value Reference Range Interpretation Comments UA Spec Grav (test code = UA Spec 1.015 1 Grav) [facility] [id number] 08:40:00 Test Item Value Reference Range Interpretation Comments UA pH (test code = UA pH) 7.0 1 5.0-8.0 [facility] [id number] 08:40:00 Test Item Value Reference Range Interpretation Comments UA Color (test code = Red *ABN*(02/13/16 3:40 UA Color) AM) [facility] [id number] 08:40:00 Test Item Value Reference Range Interpretation Comments UA Turbidity (test code Bloody *ABN*(02/13/16 = UA Turbidity) 3:40 AM) [facility] [id number] 08:40:00 Test Item Value Reference Range Interpretation Comments UA Bacteria (test code = UA Occasional /HPF Bacteria) [facility] [id number] 08:40:00 Test Item Value Reference Range Interpretation Comments UA RBC (test Packed See_Comment [Automated mes shirley] code = UA RBC) *ABN*(02/13/16 3:40 The syst em which AM) generated this result transmitted ref erence range: <=2. The reference range was not used to int erpret this result as normal/abnormal . [facility] [id number] 08:40:00 Test Item Value Reference Range Interpretation Comments UA WBC (test code = UA WBC) 3-5 /HPF [facility] [id number] 08:40:00 Test Item Value Reference Range Interpretation Comments UA Sq Epi (test code = UA Sq Epi) Rare /LPF [facility] [id number] 08:40:00 Test Item Value Reference Range Interpretation Comments UA Leuk Est (test code Trace *ABN*(02/13/16 3:40 = UA Leuk Est) AM) [facility] [id number] 08:40:00 Test Item Value Reference Range Interpretation Comments UA Nitrite (test code Negative (02/13/16 3:40 = UA Nitrite) AM) [facility] [id number] 08:40:00 Test Item Value Reference Range Interpretation Comments UA Urobilinogen (test code = UA 0.2 0.1-1.0 Urobilinogen) [facility] [id number] 08:40:00 Test Item Value Reference Range Interpretation Comments UA Ketones (test code Negative *NA*(02/13/16 = UA Ketones) 3:40 AM) [facility] [id number] 08:40:00 Test Item Value Reference Range Interpretation Comments UA Glucose (test code Negative (02/13/16 3:40 = UA Glucose) AM) [facility] [id number] 08:40:00 Test Item Value Reference Range Interpretation Comments UA Blood (test code = Large *ABN*(02/13/16 UA Blood) 3:40 AM) [facility] [id number] 08:40:00 Test Item Value Reference Range Interpretation Comments UA Bili (test code = Negative *NA*(02/13/16 UA Bili) 3:40 AM) [facility] [id number] 08:40:00 Test Item Value Reference Range Interpretation Comments UA Protein (test code = UA Protein) 30 mg/dL [facility] [id number] 08:40:00 Test Item Value Reference Range Interpretation Comments UA Spec Grav (test code = UA Spec 1.015 1 Grav) [facility] [id number] 08:40:00 Test Item Value Reference Range Interpretation Comments UA pH (test code = UA pH) 7.0 1 5.0-8.0 [facility] [id number] 08:40:00 Test Item Value Reference Range Interpretation Comments UA Color (test code = Red *ABN*(02/13/16 3:40 UA Color) AM) [facility] [id number] 08:40:00 Test Item Value Reference Range Interpretation Comments UA Turbidity (test code Bloody *ABN*(02/13/16 = UA Turbidity) 3:40 AM) [facility] [id number] 08:40:00 Test Item Value Reference Range Interpretation Comments UA Bacteria (test code = UA Occasional /HPF Bacteria) [facility] [id number] 08:40:00 Test Item Value Reference Range Interpretation Comments UA RBC (test Packed See_Comment [Automated mes shirley] code = UA RBC) *ABN*(02/13/16 3:40 The syst em which AM) generated this result transmitted ref erence range: <=2. The reference range was not used to int erpret this result as normal/abnormal . [facility] [id number] 08:40:00 Test Item Value Reference Range Interpretation Comments UA WBC (test code = UA WBC) 3-5 /HPF [facility] [id number] 08:40:00 Test Item Value Reference Range Interpretation Comments UA Sq Epi (test code = UA Sq Epi) Rare /LPF [facility] [id number] 08:40:00 Test Item Value Reference Range Interpretation Comments UA Leuk Est (test code Trace *ABN*(02/13/16 3:40 = UA Leuk Est) AM) [facility] [id number] 08:40:00 Test Item Value Reference Range Interpretation Comments UA Nitrite (test code Negative (02/13/16 3:40 = UA Nitrite) AM) [facility] [id number] 08:40:00 Test Item Value Reference Range Interpretation Comments UA Urobilinogen (test code = UA 0.2 0.1-1.0 Urobilinogen) [facility] [id number] 08:40:00 Test Item Value Reference Range Interpretation Comments UA Ketones (test code Negative *NA*(02/13/16 = UA Ketones) 3:40 AM) [facility] [id number] 08:40:00 Test Item Value Reference Range Interpretation Comments UA Glucose (test code Negative (02/13/16 3:40 = UA Glucose) AM) [facility] [id number] 08:40:00 Test Item Value Reference Range Interpretation Comments UA Blood (test code = Large *ABN*(02/13/16 UA Blood) 3:40 AM) [facility] [id number] 08:40:00 Test Item Value Reference Range Interpretation Comments UA Bili (test code = Negative *NA*(02/13/16 UA Bili) 3:40 AM) [facility] [id number] 08:40:00 Test Item Value Reference Range Interpretation Comments UA Protein (test code = UA Protein) 30 mg/dL [facility] [id number] 08:40:00 Test Item Value Reference Range Interpretation Comments UA Spec Grav (test code = UA Spec 1.015 1 Grav) [facility] [id number] 08:40:00 Test Item Value Reference Range Interpretation Comments UA pH (test code = UA pH) 7.0 1 5.0-8.0 [facility] [id number] 08:40:00 Test Item Value Reference Range Interpretation Comments UA Color (test code = Red *ABN*(02/13/16 3:40 UA Color) AM) [facility] [id number] 08:40:00 Test Item Value Reference Range Interpretation Comments UA Turbidity (test code Bloody *ABN*(02/13/16 = UA Turbidity) 3:40 AM) [facility] [id number] 08:40:00 Test Item Value Reference Range Interpretation Comments UA Bacteria (test code = UA Occasional /HPF Bacteria) [facility] [id number] 08:40:00 Test Item Value Reference Range Interpretation Comments UA RBC (test Packed See_Comment [Automated mes shirley] code = UA RBC) *ABN*(02/13/16 3:40 The syst em which AM) generated this result transmitted ref erence range: <=2. The reference range was not used to int erpret this result as normal/abnormal . [facility] [id number] 08:40:00 Test Item Value Reference Range Interpretation Comments UA WBC (test code = UA WBC) 3-5 /HPF [facility] [id number] 08:40:00 Test Item Value Reference Range Interpretation Comments UA Sq Epi (test code = UA Sq Epi) Rare /LPF [id number] 06:44:00 Test Item Value Reference Range Interpretation Comments Eosinophils # (test code 0.1 See_Comment [A utomated message] The = Eosinophils #) system whic h generated this result tra nsmitted reference range : <=0.5. The reference r ozzy was not used to int erpret this result as normal/abnormal . [facility] [id number] 06:44:00 Test Item Value Reference Range Interpretation Comments Segs-Bands # (test code = Segs-Bands #) 9.3 1.5-8.1 [facility] [id number] 06:44:00 Test Item Value Reference Range Interpretation Comments Lymphocytes # (test code = Lymphocytes 2.6 1.0-5.5 #) [facility] [id number] 06:44:00 Test Item Value Reference Range Interpretation Comments Basophils # (test code 0.0 See_Comment [Aut omated message] The = Basophils #) system which generated this result tra nsmitted reference range : <=0.2. The reference r ozzy was not used to int erpret this result as normal/abnormal . [facility] [id number] 06:44:00 Test Item Value Reference Range Interpretation Comments Microcyte (test code = 1+ *ABN*(02/13/16 1:44 Microcyte) AM) [facility] [id number] 06:44:00 Test Item Value Reference Range Interpretation Comments Giant Plt (test code Moderate *ABN*(02/13/16 = Giant Plt) 1:44 AM) [facility] CenterYrughjgSOMJYHUHRS8397-05-23 06:44:00 Test Item Value Reference Range Interpretation Comments Segs (test code = Segs) 75.2 45.0-75.0 [facility] [id number] 06:44:00 Test Item Value Reference Range Interpretation Comments Hypochrom (test code = 1+ (02/13/16 1:44 AM) Hypochrom) [facility] CenterPpqqeebMTDZPMQWXO7756-07-45 06:44:00 Test Item Value Reference Range Interpretation Comments Eosinophils (test code = 0.7 See_Comment [A utomated message] The Eosinophils) system which ge nerated this result tra nsmitted reference range : <=4.0. The reference r ozzy was not used to int erpret this result as normal/abnormal . [facility] CenterHyzwfwgPHIJEQTHDX1114-39-11 06:44:00 Test Item Value Reference Range Interpretation Comments Lymphocytes (test code = Lymphocytes) 21.3 20.0-40.0 [facility] CenterDghizspLFGMWXOQBM7846-85-72 06:44:00 Test Item Value Reference Range Interpretation Comments Monocytes (test code = Monocytes) 2.7 2.0-12.0 [facility] CenterWpdjnjsKUGMQTQJQG6341-02-36 06:44:00 Test Item Value Reference Range Interpretation Comments MPV (test code = MPV) 9.5 7.4-10.4 [facility] CenterLcpgxqpEABJPKFNVB1669-46-79 06:44:00 Test Item Value Reference Range Interpretation Comments RDW (test code = RDW) 17.8 11.5-14.5 [facility] C[id number] 06:44:00 Test Item Value Reference Range Interpretation Comments MCV (test code = MCV) 73.2 80.0-98.0 [facility] CenterTbifeduJCRDDOUSQD7468-48-58 06:44:00 Test Item Value Reference Range Interpretation Comments MCH (test code = MCH) 21.9 pg 27.0-31.0 [facility]KLMLWWPHNW6734[facility]60-[facility] 06:44:00 Test Item Value Reference Range Interpretation Comments Hct (test code = Hct) 27.2 36.0-48.0 [facility] HospitalIpaoaymJJLTKPLWIW6886-38-14 06:44:00 Test Item Value Reference Range Interpretation Comments MCHC (test code = MCHC) 29.9 32.0-36.0 [facility] HospitalCuokqmsOBMVKJHBEI4725-71-39 06:44:00 Test Item Value Reference Range Interpretation Comments Platelet (test code = Platelet) 400 133-450 [facility]bchufwAQOSYCUWQM0734-60-36 06:44:00 Test Item Value Reference Range Interpretation Comments WBC (test code = WBC) 12.4 3.7-10.4 [facility] MarshallLprsbznHGOCHTDRYG2830-07-00 06:44:00 Test Item Value Reference Range Interpretation Comments RBC (test code = RBC) 3.72 4.20-5.40 [facility] MarshallCccnmypFHXCZNHGFU6857-01-53 06:44:00 Test Item Value Reference Range Interpretation Comments Hgb (test code = Hgb) 8.1 12.0-16.0 [id number] 06:44:00 Test Item Value Reference Range Interpretation Comments PTT (test code = PTT) 27.2 s 22.9-35.8 [facility] MarshallBxfkvxrGJIPYATQCZ6041-98-19 06:44:00 Test Item Value Reference Range Interpretation Comments PT (test code = PT) 14.7 s 12.0-14.7 [facility] MarshallFgifmxbXLVBHOMKUC6888-71-94 06:44:00 Test Item Value Reference Range Interpretation Comments INR (test code = INR) 1.12 0.85-1.17 [facility] [employer] [id number] 06:44:00 Test Item Value Reference Range Interpretation Comments Antibody Scrn (test Negative (02/13/16 1:44 code = Antibody Scrn) AM) [facility] [employer] [id number] 06:44:00 Test Item Value Reference Range Interpretation Comments ABO/Rh (test code = ABO/Rh) A POS [facility]neannCARDIAC [id number] 06:44:00 Test Item Value Reference Range Interpretation Comments CK MB Index (test 1.6 See_Comment [Automate d message] The code = CK MB Index) system w [facility] generated this result transmit gaye reference range : <=2.5. The reference range was not used to interpr et this result as satish l/abnormal. [facility] [employer] [id number] 06:44:00 Test Item Value Reference Range Interpretation Comments CK MB (test code = CK MB) 0.9 0.5-3.6 [facility]neAsthmatr[facility] [id number] 06:44:00 Test Item Value Reference Range Interpretation Comments Total CK (test code = Total CK) 57 12-191 [facility] [employer] [id number] 06:44:00 Test Item Value Reference Range Interpretation Comments Troponin-I (test code no gt See_Comment [Auto mated message] The = Troponin-I) system which g enerated this result transmit gaye reference range : <=0.40. The reference r ozzy was not used to interpr et this result as satish l/abnormal. [facility] [employer] [id number] 06:44:00 Test Item Value Reference Range Interpretation Comments Albumin Lvl (test code = Albumin Lvl) 3.5 3.5-5.0 [facility] [employer] [id number] 06:44:00 Test Item Value Reference Range Interpretation Comments Total Protein (test code = Total 7.0 6.4-8.4 Protein) [facility] [employer] [id number] 06:44:00 Test Item Value Reference Range Interpretation Comments ALT (test code = ALT) 19 See_Comment [Auto mated message] The system which ge nerated this result transmit gaye reference range : <=65. The reference range was not used to interpr et this result as satish l/abnormal. [facility] [employer] [id number] 06:44:00 Test Item Value Reference Range Interpretation Comments AST (test code = AST) 10 See_Comment [Auto mated message] The system which ge nerated this result transmit gaye reference range : <=37. The reference range was not used to interpr et this result as satish l/abnormal. [facility] [employer] [id number] 06:44:00 Test Item Value Reference Range Interpretation Comments Alk Phos (test code = Alk Phos) 79 39-136 [facility]2016-07-03 06:44:00 Test Item Value Reference Range Interpretation Comments Bili Total (test code = Bili Total) 0.4 0.2-1.3 [facility]2016-07-03 06:44:00 Test Item Value Reference Range Interpretation Comments Bili Direct (test code 0.1 See_Comment [Aut omated message] The = Bili Direct) system which generated this result tra nsmitted reference range : <=0.3. The reference r ozzy was not used to int erpret this result as satish l/abnormal. [facility]2016-07-03 06:44:00 Test Item Value Reference Range Interpretation Comments Globulin (test code = Globulin) 3.5 2.0-4.0 [facility]2016-07-03 06:44:00 Test Item Value Reference Range Interpretation Comments A/G Ratio (test code = A/G Ratio) 1.0 0.7-1.6 [facility]2016-07-03 06:44:00 Test Item Value Reference Range Interpretation Comments Bili Indirect (test 0.3 See_Comment [Automa gaye message] The code = Bili Indirect) system which generated this result tra nsmitted reference range : <=1.0. The reference r ozzy was not used to int erpret this result as normal/abnormal . [facility]2016-07-03 06:44:00 Test Item Value Reference Range Interpretation Comments eGFR (test code = eGFR) 107 [facility]2016-07-03 06:44:00 Test Item Value Reference Range Interpretation Comments BUN (test code = BUN) 8 7-22 [place] 687926-07-03 06:44:00 Test Item Value Reference Range Interpretation Comments Glucose Lvl (test code = Glucose Lvl) 91 70-99 [facility]2016-07-03 06:44:00 Test Item Value Reference Range Interpretation Comments Sodium Lvl (test code = Sodium Lvl) 138 135-145 [place] 687926-07-03 06:44:00 Test Item Value Reference Range Interpretation Comments Creatinine Lvl (test code = Creatinine 0.70 0.50-1.40 Lvl) [place] 687926-07-03 06:44:00 Test Item Value Reference Range Interpretation Comments Potassium Lvl (test code = Potassium 3.3 3.5-5.1 Lvl) [facility]2016-07-03 06:44:00 Test Item Value Reference Range Interpretation Comments CO2 (test code = CO2) 25 24-32 [facility]2016-07-03 06:44:00 Test Item Value Reference Range Interpretation Comments Chloride Lvl (test code = Chloride Lvl) 106 95-109 [facility]2016-07-03 06:44:00 Test Item Value Reference Range Interpretation Comments Calcium Lvl (test code = Calcium Lvl) 8.1 8.5-10.5 [facility]2016-07-03 06:44:00 Test Item Value Reference Range Interpretation Comments AGAP (test code = AGAP) 10.3 10.0-20.0 [facility]2016-07-03 06:44:00 Test Item Value Reference Range Interpretation Comments Magnesium Lvl (test code = Magnesium 2.2 1.8-2.4 Lvl) [facility]TVBOLMQPXDHJ6910-78-46 06:44:00 Test Item Value Reference Range Interpretation Comments S Preg (test code = S Negative *NA*(02/13/16 Preg) 1:44 AM) [facility]ZmqsqusIJCCJDIBHZ3524-83-46 06:44:00 Test Item Value Reference Range Interpretation Comments Basophils (test code = 0.1 See_Comment [Aut omated message] The Basophils) system which ge nerated this result tra nsmitted reference range : <=1.0. The reference r ozzy was not used to int erpret this result as normal/abnormal . [facility] CenterQksnnucGXCTBZHHXX8140-98-36 06:44:00 Test Item Value Reference Range Interpretation Comments Monocytes # (test code 0.3 See_Comment [Aut omated message] The = Monocytes #) system which generated this result tra nsmitted reference range : <=0.8. The reference r ozzy was not used to int erpret this result as normal/abnormal . [facility] BANK [id number] 06:44:00 Test Item Value Reference Range Interpretation Comments Antibody Scrn (test Negative (02/13/16 1:44 code = Antibody Scrn) AM) [facility] [id number] 06:44:00 Test Item Value Reference Range Interpretation Comments ABO/Rh (test code = ABO/Rh) A POS [facility] [id number] 06:44:00 Test Item Value Reference Range Interpretation Comments CK MB Index (test 1.6 See_Comment [Automate d message] The code = CK MB Index) system w [facility] generated this result transmit gaye reference range : <=2.5. The reference range was not used to interpr et this result as satish l/abnormal. [employer] [id number] 06:44:00 Test Item Value Reference Range Interpretation Comments CK MB (test code = CK MB) 0.9 0.5-3.6 [facility] [employer] [id number] 06:44:00 Test Item Value Reference Range Interpretation Comments Total CK (test code = Total CK) 57 12-191 [facility] [employer] [id number] 06:44:00 Test Item Value Reference Range Interpretation Comments Troponin-I (test code no gt See_Comment [Auto mated message] The = Troponin-I) system which g enerated this result transmit gaye reference range : <=0.40. The reference r ozzy was not used to interpr et this result as satish l/abnormal. [employer] [id number] 06:44:00 Test Item Value Reference Range Interpretation Comments Albumin Lvl (test code = Albumin Lvl) 3.5 3.5-5.0 [facility] [id number] 06:44:00 Test Item Value Reference Range Interpretation Comments Total Protein (test code = Total 7.0 6.4-8.4 Protein) [facility] [employer] [id number] 06:44:00 Test Item Value Reference Range Interpretation Comments ALT (test code = ALT) 19 See_Comment [Auto mated message] The system which ge nerated this result transmit gaye reference range : <=65. The reference range was not used to interpr et this result as satish l/abnormal. [employer] [id number] 06:44:00 Test Item Value Reference Range Interpretation Comments AST (test code = AST) 10 See_Comment [Auto mated message] The system which ge nerated this result transmit gaye reference range : <=37. The reference range was not used to interpr et this result as satish l/abnormal. [place] 687926-07-03 06:44:00 Test Item Value Reference Range Interpretation Comments Alk Phos (test code = Alk Phos) 79 39-136 [place] 687926-07-03 06:44:00 Test Item Value Reference Range Interpretation Comments Bili Total (test code = Bili Total) 0.4 0.2-1.3 [place] 687926-07-03 06:44:00 Test Item Value Reference Range Interpretation Comments Bili Direct (test code 0.1 See_Comment [Aut omated message] The = Bili Direct) system which generated this result tra nsmitted reference range : <=0.3. The reference r ozzy was not used to int erpret this result as satish l/abnormal. [facility]2016-07-03 06:44:00 Test Item Value Reference Range Interpretation Comments Globulin (test code = Globulin) 3.5 2.0-4.0 [facility]2016-07-03 06:44:00 Test Item Value Reference Range Interpretation Comments A/G Ratio (test code = A/G Ratio) 1.0 0.7-1.6 [place] 687926-07-03 06:44:00 Test Item Value Reference Range Interpretation Comments Bili Indirect (test 0.3 See_Comment [Automa gaye message] The code = Bili Indirect) system which generated this result tra nsmitted reference range : <=1.0. The reference r ozzy was not used to int erpret this result as normal/abnormal . [facility]2016-07-03 06:44:00 Test Item Value Reference Range Interpretation Comments eGFR (test code = eGFR) 107 [facility]2016-07-03 06:44:00 Test Item Value Reference Range Interpretation Comments BUN (test code = BUN) 8 7-22 [facility]2016-07-03 06:44:00 Test Item Value Reference Range Interpretation Comments Glucose Lvl (test code = Glucose Lvl) 91 70-99 [place] 687926-07-03 06:44:00 Test Item Value Reference Range Interpretation Comments Sodium Lvl (test code = Sodium Lvl) 138 135-145 [facility]2016-07-03 06:44:00 Test Item Value Reference Range Interpretation Comments Creatinine Lvl (test code = Creatinine 0.70 0.50-1.40 Lvl) [facility]2016-07-03 06:44:00 Test Item Value Reference Range Interpretation Comments Potassium Lvl (test code = Potassium 3.3 3.5-5.1 Lvl) [facility]2016-07-03 06:44:00 Test Item Value Reference Range Interpretation Comments CO2 (test code = CO2) 25 24-32 [facility]2016-07-03 06:44:00 Test Item Value Reference Range Interpretation Comments Chloride Lvl (test code = Chloride Lvl) 106 95-109 [facility]2016-07-03 06:44:00 Test Item Value Reference Range Interpretation Comments Calcium Lvl (test code = Calcium Lvl) 8.1 8.5-10.5 [facility]2016-07-03 06:44:00 Test Item Value Reference Range Interpretation Comments AGAP (test code = AGAP) 10.3 10.0-20.0 [facility]2016-07-03 06:44:00 Test Item Value Reference Range Interpretation Comments Magnesium Lvl (test code = Magnesium 2.2 1.8-2.4 Lvl) [facility]EujubvmEBWTRAAFIGRLF4894-50-09 06:44:00 Test Item Value Reference Range Interpretation Comments S Preg (test code = S Negative *NA*(02/13/16 Preg) 1:44 AM) [facility] CenterQyrherdWPJJWSFBPH5308-40-25 06:44:00 Test Item Value Reference Range Interpretation Comments Basophils (test code = 0.1 See_Comment [Aut omated message] The Basophils) system which ge nerated this result tra nsmitted reference range : <=1.0. The reference r ozzy was not used to int erpret this result as normal/abnormal . [facility] CenterWxidkhjYQHAMKPXLS4498-73-54 06:44:00 Test Item Value Reference Range Interpretation Comments Monocytes # (test code 0.3 See_Comment [Aut omated message] The = Monocytes #) system which generated this result tra nsmitted reference range : <=0.8. The reference r ozzy was not used to int erpret this result as normal/abnormal . [facility] CenterDirhzfbQKSEPGTSOP3135-59-09 06:44:00 Test Item Value Reference Range Interpretation Comments Eosinophils # (test code 0.1 See_Comment [A utomated message] The = Eosinophils #) system whic h generated this result tra nsmitted reference range : <=0.5. The reference r ozzy was not used to int erpret this result as normal/abnormal . [facility] CenterXaikarsZVLQWEPBAO8142-70-95 06:44:00 Test Item Value Reference Range Interpretation Comments Segs-Bands # (test code = Segs-Bands #) 9.3 1.5-8.1 [facility] CenterOswqqwbWKGMABDHGC6749-18-12 06:44:00 Test Item Value Reference Range Interpretation Comments Lymphocytes # (test code = Lymphocytes 2.6 1.0-5.5 #) [facility] CenterZkirwjkQLVJVJWAYS0621-78-25 06:44:00 Test Item Value Reference Range Interpretation Comments Basophils # (test code 0.0 See_Comment [Aut omated message] The = Basophils #) system which generated this result tra nsmitted reference range : <=0.2. The reference r ozzy was not used to int erpret this result as normal/abnormal . [facility] CenterVttvmbbHESWNFBVXI8107-60-57 06:44:00 Test Item Value Reference Range Interpretation Comments Microcyte (test code = 1+ *ABN*(02/13/16 1:44 Microcyte) AM) [facility] CenterRjcmynfKBDZMSHGWC4452-43-49 06:44:00 Test Item Value Reference Range Interpretation Comments Giant Plt (test code Moderate *ABN*(02/13/16 = Giant Plt) 1:44 AM) [facility] CenterIvhfrchUDPBNJOJOE5466-74-21 06:44:00 Test Item Value Reference Range Interpretation Comments Segs (test code = Segs) 75.2 45.0-75.0 [facility] CenterLhhbnqgBUZTVLEBHR4634-67-50 06:44:00 Test Item Value Reference Range Interpretation Comments Hypochrom (test code = 1+ (02/13/16 1:44 AM) Hypochrom) [facility] CenterGwdcdvpLJPSIVCTBG0500-54-28 06:44:00 Test Item Value Reference Range Interpretation Comments Eosinophils (test code = 0.7 See_Comment [A utomated message] The Eosinophils) system which ge nerated this result tra nsmitted reference range : <=4.0. The reference r ozzy was not used to int erpret this result as normal/abnormal . [facility] CenterNxsjsmlGFMNQAKGSL2786-88-62 06:44:00 Test Item Value Reference Range Interpretation Comments Lymphocytes (test code = Lymphocytes) 21.3 20.0-40.0 [facility] CenterJiogqsmMKHOCEMEIW1331-73-73 06:44:00 Test Item Value Reference Range Interpretation Comments Monocytes (test code = Monocytes) 2.7 2.0-12.0 [facility] CenterYbeltvaZBXSQVQAZZ4101-17-58 06:44:00 Test Item Value Reference Range Interpretation Comments MPV (test code = MPV) 9.5 7.4-10.4 [facility] CenterUfhnimcPFRLULJCLT5162-94-22 06:44:00 Test Item Value Reference Range Interpretation Comments RDW (test code = RDW) 17.8 11.5-14.5 [facility] CenterDxwqunuBHIMVSPVQW9844-95-06 06:44:00 Test Item Value Reference Range Interpretation Comments MCV (test code = MCV) 73.2 80.0-98.0 [facility] CenterZsqhyhgTUAINARHVP5743-43-01 06:44:00 Test Item Value Reference Range Interpretation Comments MCH (test code = MCH) 21.9 pg 27.0-31.0 [facility] CenterLynmcuhHABKSCNEYA2318-55-16 06:44:00 Test Item Value Reference Range Interpretation Comments Hct (test code = Hct) 27.2 36.0-48.0 [facility] CenterMkvrhsjNULNUKFIUW3665-64-24 06:44:00 Test Item Value Reference Range Interpretation Comments MCHC (test code = MCHC) 29.9 32.0-36.0 [facility] CenterKdafrjoDIPLJOWWSA1754-93-61 06:44:00 Test Item Value Reference Range Interpretation Comments Platelet (test code = Platelet) 400 133-450 [facility] CenterBbcsvssSDRQMVYBTI9847-54-22 06:44:00 Test Item Value Reference Range Interpretation Comments WBC (test code = WBC) 12.4 3.7-10.4 [facility] CenterMcyqzosUDAZDIJYIY2337-78-53 06:44:00 Test Item Value Reference Range Interpretation Comments RBC (test code = RBC) 3.72 4.20-5.40 [facility] CenterEdhxrvaPSIPVNCRDE5260-03-58 06:44:00 Test Item Value Reference Range Interpretation Comments Hgb (test code = Hgb) 8.1 12.0-16.0 [facility] SxwkuynXIJIZEZTZY7663-27-68 06:44:00 Test Item Value Reference Range Interpretation Comments PTT (test code = PTT) 27.2 s 22.9-35.8 [facility] AzfatytWQABVSUPVL7714-08-78 06:44:00 Test Item Value Reference Range Interpretation Comments PT (test code = PT) 14.7 s 12.0-14.7 [facility] CzmlzpdWHKPNWUSVE3301-14-17 06:44:00 Test Item Value Reference Range Interpretation Comments INR (test code = INR) 1.12 0.85-1.17 [facility] [employer] AEFQEKX8877-94-10 06:44:00 Test Item Value Reference Range Interpretation Comments Antibody Scrn (test Negative (02/13/16 1:44 code = Antibody Scrn) AM) [facility] [employer] [id number] 06:44:00 Test Item Value Reference Range Interpretation Comments ABO/Rh (test code = ABO/Rh) A POS [facility] [employer]2016-07-03 06:44:00 Test Item Value Reference Range Interpretation Comments CK MB Index (test 1.6 See_Comment [Automate d message] The code = CK MB Index) system w [facility] generated this result transmit gaye reference range : <=2.5. The reference range was not used to interpr et this result as satish l/abnormal. [employer]2016-07-03 06:44:00 Test Item Value Reference Range Interpretation Comments CK MB (test code = CK MB) 0.9 0.5-3.6 [facility] [employer]2016-07-03 06:44:00 Test Item Value Reference Range Interpretation Comments Total CK (test code = Total CK) 57 12-191 [facility] [employer]2016-07-03 06:44:00 Test Item Value Reference Range Interpretation Comments Troponin-I (test code no gt See_Comment [Auto mated message] The = Troponin-I) system which g enerated this result transmit gaye reference range : <=0.40. The reference r ozzy was not used to interpr et this result as satish l/abnormal. [employer] [id number] 06:44:00 Test Item Value Reference Range Interpretation Comments Albumin Lvl (test code = Albumin Lvl) 3.5 3.5-5.0 [facility] DaysCANN[facility] MEM[facility]IAL HOSPITALSZISI9919-02-33 06:44:00 Test Item Value Reference Range Interpretation Comments Total Protein (test code = Total 7.0 6.4-8.4 Protein) [facility]2016-07-03 06:44:00 Test Item Value Reference Range Interpretation Comments ALT (test code = ALT) 19 See_Comment [Auto mated message] The system which ge nerated this result transmit gaye reference range : <=65. The reference range was not used to interpr et this result as satish l/abnormal. [facility] [id number] 06:44:00 Test Item Value Reference Range Interpretation Comments AST (test code = AST) 10 See_Comment [Auto mated message] The system which ge nerated this result transmit gaye reference range : <=37. The reference range was not used to interpr et this result as satish l/abnormal. [facility] SJBQH8745-06-44 06:44:00 Test Item Value Reference Range Interpretation Comments Alk Phos (test code = Alk Phos) 79 39-136 [facility] [id number] 06:44:00 Test Item Value Reference Range Interpretation Comments Bili Total (test code = Bili Total) 0.4 0.2-1.3 [facility] [id number] 06:44:00 Test Item Value Reference Range Interpretation Comments Bili Direct (test code 0.1 See_Comment [Aut omated message] The = Bili Direct) system which generated this result tra nsmitted reference range : <=0.3. The reference r ozzy was not used to int erpret this result as satish l/abnormal. [facility] [id number] 06:44:00 Test Item Value Reference Range Interpretation Comments Globulin (test code = Globulin) 3.5 2.0-4.0 [facility] SNTJL0391-04-66 06:44:00 Test Item Value Reference Range Interpretation Comments A/G Ratio (test code = A/G Ratio) 1.0 0.7-1.6 [facility] UTPIY5987-07-52 06:44:00 Test Item Value Reference Range Interpretation Comments Bili Indirect (test 0.3 See_Comment [Automa gaye message] The code = Bili Indirect) system which generated this result tra nsmitted reference range : <=1.0. The reference r ozzy was not used to int erpret this result as normal/abnormal . [facility]2016-07-03 06:44:00 Test Item Value Reference Range Interpretation Comments eGFR (test code = eGFR) 107 [facility]2016-07-03 06:44:00 Test Item Value Reference Range Interpretation Comments BUN (test code = BUN) 8 7-22 [facility]2016-07-03 06:44:00 Test Item Value Reference Range Interpretation Comments Glucose Lvl (test code = Glucose Lvl) 91 70-99 [facility]2016-07-03 06:44:00 Test Item Value Reference Range Interpretation Comments Sodium Lvl (test code = Sodium Lvl) 138 135-145 [facility]2016-07-03 06:44:00 Test Item Value Reference Range Interpretation Comments Creatinine Lvl (test code = Creatinine 0.70 0.50-1.40 Lvl) [facility]2016-07-03 06:44:00 Test Item Value Reference Range Interpretation Comments Potassium Lvl (test code = Potassium 3.3 3.5-5.1 Lvl) [facility]2016-07-03 06:44:00 Test Item Value Reference Range Interpretation Comments CO2 (test code = CO2) 25 24-32 [facility]2016-07-03 06:44:00 Test Item Value Reference Range Interpretation Comments Chloride Lvl (test code = Chloride Lvl) 106 95-109 [facility]2016-07-03 06:44:00 Test Item Value Reference Range Interpretation Comments Calcium Lvl (test code = Calcium Lvl) 8.1 8.5-10.5 [facility]2016-07-03 06:44:00 Test Item Value Reference Range Interpretation Comments AGAP (test code = AGAP) 10.3 10.0-20.0 [facility]2016-07-03 06:44:00 Test Item Value Reference Range Interpretation Comments Magnesium Lvl (test code = Magnesium 2.2 1.8-2.4 Lvl) [facility]ZtmgnjqKDPGWJRKNUZQU3856-23-54 06:44:00 Test Item Value Reference Range Interpretation Comments S Preg (test code = S Negative *NA*(02/13/16 Preg) 1:44 AM) [facility] CenterWonmlxgTTAJIJWAEV3155-72-22 06:44:00 Test Item Value Reference Range Interpretation Comments Basophils (test code = 0.1 See_Comment [Aut omated message] The Basophils) system which ge nerated this result tra nsmitted reference range : <=1.0. The reference r ozzy was not used to int erpret this result as normal/abnormal . [facility] CenterDhhuwinDCENSTQLTS3488-43-00 06:44:00 Test Item Value Reference Range Interpretation Comments Monocytes # (test code 0.3 See_Comment [Aut omated message] The = Monocytes #) system which generated this result tra nsmitted reference range : <=0.8. The reference r ozzy was not used to int erpret this result as normal/abnormal . [facility] CenterFqsndglAGELORXROX5575-18-38 06:44:00 Test Item Value Reference Range Interpretation Comments Eosinophils # (test code 0.1 See_Comment [A utomated message] The = Eosinophils #) system whic h generated this result tra nsmitted reference range : <=0.5. The reference r ozzy was not used to int erpret this result as normal/abnormal . [facility] CenterDzxroslNJTTQRMEDW8408-43-41 06:44:00 Test Item Value Reference Range Interpretation Comments Segs-Bands # (test code = Segs-Bands #) 9.3 1.5-8.1 [facility] CenterRhxzovxGRZDWWMEOY4426-94-01 06:44:00 Test Item Value Reference Range Interpretation Comments Lymphocytes # (test code = Lymphocytes 2.6 1.0-5.5 #) [facility] CenterKpoyccdGOXUECSGMR4407-35-70 06:44:00 Test Item Value Reference Range Interpretation Comments Basophils # (test code 0.0 See_Comment [Aut omated message] The = Basophils #) system which generated this result tra nsmitted reference range : <=0.2. The reference r ozzy was not used to int erpret this result as normal/abnormal . [facility] CenterJouctzcDMGFQMJIRR3300-78-21 06:44:00 Test Item Value Reference Range Interpretation Comments Microcyte (test code = 1+ *ABN*(02/13/16 1:44 Microcyte) AM) [facility] CenterXqnfzsmLQZWPAOVUY1610-03-22 06:44:00 Test Item Value Reference Range Interpretation Comments Giant Plt (test code Moderate *ABN*(02/13/16 = Giant Plt) 1:44 AM) [facility] CenterEmhreozXVRROTTTOO9481-98-38 06:44:00 Test Item Value Reference Range Interpretation Comments Segs (test code = Segs) 75.2 45.0-75.0 [facility] CenterQanspcuXMYDILEWID7900-03-43 06:44:00 Test Item Value Reference Range Interpretation Comments Hypochrom (test code = 1+ (02/13/16 1:44 AM) Hypochrom) [facility] CenterXewmjgyBDHMKGBWVO7247-15-43 06:44:00 Test Item Value Reference Range Interpretation Comments Eosinophils (test code = 0.7 See_Comment [A utomated message] The Eosinophils) system which ge nerated this result tra nsmitted reference range : <=4.0. The reference r ozzy was not used to int erpret this result as normal/abnormal . [facility] CenterTnaiqsuFWFCWTZUCY8200-23-86 06:44:00 Test Item Value Reference Range Interpretation Comments Lymphocytes (test code = Lymphocytes) 21.3 20.0-40.0 [facility] CenterMcfjurxLSKMWPSUKJ8140-88-21 06:44:00 Test Item Value Reference Range Interpretation Comments Monocytes (test code = Monocytes) 2.7 2.0-12.0 [facility] CenterYfchpfqXADQCWKLUC5750-76-51 06:44:00 Test Item Value Reference Range Interpretation Comments MPV (test code = MPV) 9.5 7.4-10.4 [facility] CenterMpsazwaMGEPCLJDBO2453-21-10 06:44:00 Test Item Value Reference Range Interpretation Comments RDW (test code = RDW) 17.8 11.5-14.5 [facility] CenterDublpcxFYRORVTCXA9011-72-21 06:44:00 Test Item Value Reference Range Interpretation Comments MCV (test code = MCV) 73.2 80.0-98.0 [facility] CenterTsjxxawJMENIECXIP1463-29-26 06:44:00 Test Item Value Reference Range Interpretation Comments MCH (test code = MCH) 21.9 pg 27.0-31.0 [facility] CenterAgxglitECZALHPCDF8518-91-77 06:44:00 Test Item Value Reference Range Interpretation Comments Hct (test code = Hct) 27.2 36.0-48.0 [facility] CenterYkfabudKORUIAASRD7326-10-45 06:44:00 Test Item Value Reference Range Interpretation Comments MCHC (test code = MCHC) 29.9 32.0-36.0 [facility]neXbgeyjjRRFMHQVLZN2415-38-37 06:44:00 Test Item Value Reference Range Interpretation Comments Platelet (test code = Platelet) 400 133-450 [facility] CleburneMmjhjhgFXYDTWKSPH7079-86-96 06:44:00 Test Item Value Reference Range Interpretation Comments WBC (test code = WBC) 12.4 3.7-10.4 [facility] MgbkzykAMRIATZBRJ5058-46-89 06:44:00 Test Item Value Reference Range Interpretation Comments RBC (test code = RBC) 3.72 4.20-5.40 [facility] YskqkydEROMZSGBQP9655-60-66 06:44:00 Test Item Value Reference Range Interpretation Comments Hgb (test code = Hgb) 8.1 12.0-16.0 [facility] CleburneXfniisdWIILHNVROK5763-92-67 06:44:00 Test Item Value Reference Range Interpretation Comments PTT (test code = PTT) 27.2 s 22.9-35.8 [facility] FnxxnhbJKXBEDLJIW3817-90-53 06:44:00 Test Item Value Reference Range Interpretation Comments PT (test code = PT) 14.7 s 12.0-14.7 [facility] IhmorwtYDCQFFADII0579-06-58 06:44:00 Test Item Value Reference Range Interpretation Comments INR (test code = INR) 1.12 0.85-1.17 [facility] [employer] YIVCBPK2494-19-57 06:44:00 Test Item Value Reference Range Interpretation Comments Antibody Scrn (test Negative (02/13/16 1:44 code = Antibody Scrn) AM) [facility] [employer] [id number] 06:44:00 Test Item Value Reference Range Interpretation Comments ABO/Rh (test code = ABO/Rh) A POS [facility] [employer]2016-07-03 06:44:00 Test Item Value Reference Range Interpretation Comments CK MB Index (test 1.6 See_Comment [Automate d message] The code = CK MB Index) system w [facility] generated this result transmit gaye reference range : <=2.5. The reference range was not used to interpr et this result as satish l/abnormal. [employer]2016-07-03 06:44:00 Test Item Value Reference Range Interpretation Comments CK MB (test code = CK MB) 0.9 0.5-3.6 [facility] LtdAC [id number] 06:44:00 Test Item Value Reference Range Interpretation Comments Total CK (test code = Total CK) 57 12-191 [facility] [id number] 06:44:00 Test Item Value Reference Range Interpretation Comments Troponin-I (test code no gt See_Comment [Auto mated message] The = Troponin-I) system which g enerated this result transmit gaye reference range : <=0.40. The reference r ozzy was not used to interpr et this result as satish l/abnormal. [facility] [employer] [id number] 06:44:00 Test Item Value Reference Range Interpretation Comments Albumin Lvl (test code = Albumin Lvl) 3.5 3.5-5.0 [facility] [id number] 06:44:00 Test Item Value Reference Range Interpretation Comments Total Protein (test code = Total 7.0 6.4-8.4 Protein) [facility] [id number] 06:44:00 Test Item Value Reference Range Interpretation Comments ALT (test code = ALT) 19 See_Comment [Auto mated message] The system which ge nerated this result transmit gaye reference range : <=65. The reference range was not used to interpr et this result as satish l/abnormal. [facility] [employer] [id number] 06:44:00 Test Item Value Reference Range Interpretation Comments AST (test code = AST) 10 See_Comment [Auto mated message] The system which ge nerated this result transmit gaye reference range : <=37. The reference range was not used to interpr et this result as satish l/abnormal. [facility] [employer] [id number] 06:44:00 Test Item Value Reference Range Interpretation Comments Alk Phos (test code = Alk Phos) 79 39-136 [facility] [id number] 06:44:00 Test Item Value Reference Range Interpretation Comments Bili Total (test code = Bili Total) 0.4 0.2-1.3 [facility] [employer] [id number] 06:44:00 Test Item Value Reference Range Interpretation Comments Bili Direct (test code 0.1 See_Comment [Aut omated message] The = Bili Direct) system which generated this result tra nsmitted reference range : <=0.3. The reference r ozzy was not used to int erpret this result as satish l/abnormal. [facility]2016-07-03 06:44:00 Test Item Value Reference Range Interpretation Comments Globulin (test code = Globulin) 3.5 2.0-4.0 [facility]2016-07-03 06:44:00 Test Item Value Reference Range Interpretation Comments A/G Ratio (test code = A/G Ratio) 1.0 0.7-1.6 [place] 687926-07-03 06:44:00 Test Item Value Reference Range Interpretation Comments Bili Indirect (test 0.3 See_Comment [Automa gaye message] The code = Bili Indirect) system which generated this result tra nsmitted reference range : <=1.0. The reference r ozzy was not used to int erpret this result as normal/abnormal . [facility]2016-07-03 06:44:00 Test Item Value Reference Range Interpretation Comments eGFR (test code = eGFR) 107 [facility]2016-07-03 06:44:00 Test Item Value Reference Range Interpretation Comments BUN (test code = BUN) 8 7-22 [facility]2016-07-03 06:44:00 Test Item Value Reference Range Interpretation Comments Glucose Lvl (test code = Glucose Lvl) 91 70-99 [facility]2016-07-03 06:44:00 Test Item Value Reference Range Interpretation Comments Sodium Lvl (test code = Sodium Lvl) 138 135-145 [facility]2016-07-03 06:44:00 Test Item Value Reference Range Interpretation Comments Creatinine Lvl (test code = Creatinine 0.70 0.50-1.40 Lvl) [facility]2016-07-03 06:44:00 Test Item Value Reference Range Interpretation Comments Potassium Lvl (test code = Potassium 3.3 3.5-5.1 Lvl) [facility]2016-07-03 06:44:00 Test Item Value Reference Range Interpretation Comments CO2 (test code = CO2) 25 24-32 [place] 687926-07-03 06:44:00 Test Item Value Reference Range Interpretation Comments Chloride Lvl (test code = Chloride Lvl) 106 95-109 [facility]2016-07-03 06:44:00 Test Item Value Reference Range Interpretation Comments Calcium Lvl (test code = Calcium Lvl) 8.1 8.5-10.5 [facility]2016-07-03 06:44:00 Test Item Value Reference Range Interpretation Comments AGAP (test code = AGAP) 10.3 10.0-20.0 [facility]2016-07-03 06:44:00 Test Item Value Reference Range Interpretation Comments Magnesium Lvl (test code = Magnesium 2.2 1.8-2.4 Lvl) [facility]FsaldbkAYPLMBATJAKYA7200-93-37 06:44:00 Test Item Value Reference Range Interpretation Comments S Preg (test code = S Negative *NA*(02/13/16 Preg) 1:44 AM) [facility] CenterAzjlcrpLGUKWTZFPT4645-70-64 06:44:00 Test Item Value Reference Range Interpretation Comments Basophils (test code = 0.1 See_Comment [Aut omated message] The Basophils) system which ge nerated this result tra nsmitted reference range : <=1.0. The reference r ozzy was not used to int erpret this result as normal/abnormal . [facility] CenterKjoomyxKIZMYASENN2847-79-48 06:44:00 Test Item Value Reference Range Interpretation Comments Monocytes # (test code 0.3 See_Comment [Aut omated message] The = Monocytes #) system which generated this result tra nsmitted reference range : <=0.8. The reference r ozzy was not used to int erpret this result as normal/abnormal . [facility] CenterRhthgeeKOIQVHDFEI6430-23-05 06:44:00 Test Item Value Reference Range Interpretation Comments Eosinophils # (test code 0.1 See_Comment [A utomated message] The = Eosinophils #) system whic h generated this result tra nsmitted reference range : <=0.5. The reference r ozzy was not used to int erpret this result as normal/abnormal . [facility] CenterHskvkaaSWCFTCIOBT0417-87-26 06:44:00 Test Item Value Reference Range Interpretation Comments Segs-Bands # (test code = Segs-Bands #) 9.3 1.5-8.1 [facility] CenterRdphqaxMCWAOJMMWV1724-57-28 06:44:00 Test Item Value Reference Range Interpretation Comments Lymphocytes # (test code = Lymphocytes 2.6 1.0-5.5 #) [facility] CenterJnwcfqfQXOHFLBSFZ1476-22-02 06:44:00 Test Item Value Reference Range Interpretation Comments Basophils # (test code 0.0 See_Comment [Aut omated message] The = Basophils #) system which generated this result tra nsmitted reference range : <=0.2. The reference r ozzy was not used to int erpret this result as normal/abnormal . [facility] CenterWcqpdpiCROTBVIVOV1608-45-44 06:44:00 Test Item Value Reference Range Interpretation Comments Microcyte (test code = 1+ *ABN*(02/13/16 1:44 Microcyte) AM) [facility] CenterMvzjajkYKPMXHUQAB0124-64-28 06:44:00 Test Item Value Reference Range Interpretation Comments Giant Plt (test code Moderate *ABN*(02/13/16 = Giant Plt) 1:44 AM) [facility] CenterBamyikjRCLFILPLEQ5892-18-22 06:44:00 Test Item Value Reference Range Interpretation Comments Segs (test code = Segs) 75.2 45.0-75.0 [facility] CenterOguyxulPKOHXFPMIK5636-85-84 06:44:00 Test Item Value Reference Range Interpretation Comments Hypochrom (test code = 1+ (02/13/16 1:44 AM) Hypochrom) [facility] Cent[id number] 06:44:00 Test Item Value Reference Range Interpretation Comments Eosinophils (test code = 0.7 See_Comment [A utomated message] The Eosinophils) system which ge nerated this result tra nsmitted reference range : <=4.0. The reference r ozzy was not used to int erpret this result as normal/abnormal . [facility] CenterJqrjkxjMPAZBINISO6443-18-72 06:44:00 Test Item Value Reference Range Interpretation Comments Lymphocytes (test code = Lymphocytes) 21.3 20.0-40.0 [facility] CenterLdaopoqGTSSXOWRLQ0927-33-51 06:44:00 Test Item Value Reference Range Interpretation Comments Monocytes (test code = Monocytes) 2.7 2.0-12.0 [facility] CenterPioactiZMOTGQVOWY2617-60-90 06:44:00 Test Item Value Reference Range Interpretation Comments MPV (test code = MPV) 9.5 7.4-10.4 [facility] CenterShnvvljLMMAOMGMLI2845-73-53 06:44:00 Test Item Value Reference Range Interpretation Comments RDW (test code = RDW) 17.8 11.5-14.5 [facility] CenterKqzdinfPFJSPMYFWC1253-00-05 06:44:00 Test Item Value Reference Range Interpretation Comments MCV (test code = MCV) 73.2 80.0-98.0 [facility] CenterYlvegjiECIYZMELHD3969-03-24 06:44:00 Test Item Value Reference Range Interpretation Comments MCH (test code = MCH) 21.9 pg 27.0-31.0 [facility] CenterGspeoptCURKPBEGTF0659-02-38 06:44:00 Test Item Value Reference Range Interpretation Comments Hct (test code = Hct) 27.2 36.0-48.0 [facility] CenterPdtaiigMWFTCJKNPA0828-16-67 06:44:00 Test Item Value Reference Range Interpretation Comments MCHC (test code = MCHC) 29.9 32.0-36.0 [facility] CenterIixewqpZDHPUGVBSO7678-34-01 06:44:00 Test Item Value Reference Range Interpretation Comments Platelet (test code = Platelet) 400 133-450 [facility] CenterFmatbczJPMNKHSCLP0199-27-20 06:44:00 Test Item Value Reference Range Interpretation Comments WBC (test code = WBC) 12.4 3.7-10.4 [facility] CenterGwtbwgxUJFMZJZRWX7295-15-48 06:44:00 Test Item Value Reference Range Interpretation Comments RBC (test code = RBC) 3.72 4.20-5.40 [facility] CenterDcatxouWZHLCJUDXS5204-02-84 06:44:00 Test Item Value Reference Range Interpretation Comments Hgb (test code = Hgb) 8.1 12.0-16.0 [facility] CenterYcnrswxAXOXNTOAZE9836-44-39 06:44:00 Test Item Value Reference Range Interpretation Comments PTT (test code = PTT) 27.2 s 22.9-35.8 [facility] CenterCzzvykpWEJCBJWYRR7161-05-24 06:44:00 Test Item Value Reference Range Interpretation Comments PT (test code = PT) 14.7 s 12.0-14.7 [facility] CenterHsgqzzjHQZHSLFEDE5198-81-62 06:44:00 Test Item Value Reference Range Interpretation Comments INR (test code = INR) 1.12 0.85-1.17 [facility] [id number] 06:44:00 Test Item Value Reference Range Interpretation Comments Antibody Scrn (test Negative (02/13/16 1:44 code = Antibody Scrn) AM) [place] [id number] 06:44:00 Test Item Value Reference Range Interpretation Comments ABO/Rh (test code = ABO/Rh) A POS [employer]2016-07-03 06:44:00 Test Item Value Reference Range Interpretation Comments CK MB Index (test 1.6 See_Comment [Automate d message] The code = CK MB Index) system w [facility] generated this result transmit gaye reference range : <=2.5. The reference range was not used to interpr et this result as satish l/abnormal. [employer]2016-07-03 06:44:00 Test Item Value Reference Range Interpretation Comments CK MB (test code = CK MB) 0.9 0.5-3.6 [employer]2016-07-03 06:44:00 Test Item Value Reference Range Interpretation Comments Total CK (test code = Total CK) 57 12-191 [employer]2016-07-03 06:44:00 Test Item Value Reference Range Interpretation Comments Troponin-I (test code no gt See_Comment [Auto mated message] The = Troponin-I) system which g enerated this result transmit gaye reference range : <=0.40. The reference r ozzy was not used to interpr et this result as satish l/abnormal. [employer]2016-07-03 06:44:00 Test Item Value Reference Range Interpretation Comments Albumin Lvl (test code = Albumin Lvl) 3.5 3.5-5.0 [employer]2016-07-03 06:44:00 Test Item Value Reference Range Interpretation Comments Total Protein (test code = Total 7.0 6.4-8.4 Protein) [employer]2016-07-03 06:44:00 Test Item Value Reference Range Interpretation Comments ALT (test code = ALT) 19 See_Comment [Auto mated message] The system which ge nerated this result transmit gaye reference range : <=65. The reference range was not used to interpr et this result as satish l/abnormal. [place] 687926-07-03 06:44:00 Test Item Value Reference Range Interpretation Comments AST (test code = AST) 10 See_Comment [Auto mated message] The system which ge nerated this result transmit gaye reference range : <=37. The reference range was not used to interpr et this result as satish l/abnormal. [place] 687926-07-03 06:44:00 Test Item Value Reference Range Interpretation Comments Alk Phos (test code = Alk Phos) 79 39-136 [facility]2016-07-03 06:44:00 Test Item Value Reference Range Interpretation Comments Bili Total (test code = Bili Total) 0.4 0.2-1.3 [place] 687926-07-03 06:44:00 Test Item Value Reference Range Interpretation Comments Bili Direct (test code 0.1 See_Comment [Aut omated message] The = Bili Direct) system which generated this result tra nsmitted reference range : <=0.3. The reference r ozzy was not used to int erpret this result as satish l/abnormal. [facility]2016-07-03 06:44:00 Test Item Value Reference Range Interpretation Comments Globulin (test code = Globulin) 3.5 2.0-4.0 [facility]2016-07-03 06:44:00 Test Item Value Reference Range Interpretation Comments A/G Ratio (test code = A/G Ratio) 1.0 0.7-1.6 [place] 687926-07-03 06:44:00 Test Item Value Reference Range Interpretation Comments Bili Indirect (test 0.3 See_Comment [Automa gaye message] The code = Bili Indirect) system which generated this result tra nsmitted reference range : <=1.0. The reference r ozzy was not used to int erpret this result as normal/abnormal . [facility]2016-07-03 06:44:00 Test Item Value Reference Range Interpretation Comments eGFR (test code = eGFR) 107 [facility]2016-07-03 06:44:00 Test Item Value Reference Range Interpretation Comments BUN (test code = BUN) 8 7-22 [place] 687926-07-03 06:44:00 Test Item Value Reference Range Interpretation Comments Glucose Lvl (test code = Glucose Lvl) 91 70-99 [facility]2016-07-03 06:44:00 Test Item Value Reference Range Interpretation Comments Sodium Lvl (test code = Sodium Lvl) 138 135-145 [facility]2016-07-03 06:44:00 Test Item Value Reference Range Interpretation Comments Creatinine Lvl (test code = Creatinine 0.70 0.50-1.40 Lvl) [facility]2016-07-03 06:44:00 Test Item Value Reference Range Interpretation Comments Potassium Lvl (test code = Potassium 3.3 3.5-5.1 Lvl) [facility]2016-07-03 06:44:00 Test Item Value Reference Range Interpretation Comments CO2 (test code = CO2) 25 24-32 [facility]2016-07-03 06:44:00 Test Item Value Reference Range Interpretation Comments Chloride Lvl (test code = Chloride Lvl) 106 95-109 [facility]2016-07-03 06:44:00 Test Item Value Reference Range Interpretation Comments Calcium Lvl (test code = Calcium Lvl) 8.1 8.5-10.5 [facility]2016-07-03 06:44:00 Test Item Value Reference Range Interpretation Comments AGAP (test code = AGAP) 10.3 10.0-20.0 [facility]2016-07-03 06:44:00 Test Item Value Reference Range Interpretation Comments Magnesium Lvl (test code = Magnesium 2.2 1.8-2.4 Lvl) [facility]OvazinnXZNESQCNLICBE8767-83-13 06:44:00 Test Item Value Reference Range Interpretation Comments S Preg (test code = S Negative *NA*(02/13/16 Preg) 1:44 AM) [facility] CenterVndmzkfZHCAHTSMVZ5789-69-43 06:44:00 Test Item Value Reference Range Interpretation Comments Basophils (test code = 0.1 See_Comment [Aut omated message] The Basophils) system which ge nerated this result tra nsmitted reference range : <=1.0. The reference r ozzy was not used to int erpret this result as normal/abnormal . [facility] CenterKysakdwTCGPGOUAIL3122-02-84 06:44:00 Test Item Value Reference Range Interpretation Comments Monocytes # (test code 0.3 See_Comment [Aut omated message] The = Monocytes #) system which generated this result tra nsmitted reference range : <=0.8. The reference r ozzy was not used to int erpret this result as normal/abnormal . [facility] CenterMmcgdjfSPRXSZFQYD6392-03-49 06:44:00 Test Item Value Reference Range Interpretation Comments Eosinophils # (test code 0.1 See_Comment [A utomated message] The = Eosinophils #) system whic h generated this result tra nsmitted reference range : <=0.5. The reference r ozzy was not used to int erpret this result as normal/abnormal . [facility] CenterOwzbqwoLFTFVXXLQA2672-69-14 06:44:00 Test Item Value Reference Range Interpretation Comments Segs-Bands # (test code = Segs-Bands #) 9.3 1.5-8.1 [facility] CenterClqqhbzBNGWILSRKT6887-25-01 06:44:00 Test Item Value Reference Range Interpretation Comments Lymphocytes # (test code = Lymphocytes 2.6 1.0-5.5 #) [facility] CenterEojxbfrMJPZBFUCCR5034-57-13 06:44:00 Test Item Value Reference Range Interpretation Comments Basophils # (test code 0.0 See_Comment [Aut omated message] The = Basophils #) system which generated this result tra nsmitted reference range : <=0.2. The reference r ozzy was not used to int erpret this result as normal/abnormal . [facility] CenterViqzwznWIRHAASYTK6878-36-81 06:44:00 Test Item Value Reference Range Interpretation Comments Microcyte (test code = 1+ *ABN*(02/13/16 1:44 Microcyte) AM) [facility] CenterYyoueuuTJYUWPOBLE3629-44-74 06:44:00 Test Item Value Reference Range Interpretation Comments Giant Plt (test code Moderate *ABN*(02/13/16 = Giant Plt) 1:44 AM) [facility] CenterMlzfaouAPLGPGRBVJ0145-56-91 06:44:00 Test Item Value Reference Range Interpretation Comments Segs (test code = Segs) 75.2 45.0-75.0 [facility] CenterDpnqzjzPDEQQWWFRC2096-65-68 06:44:00 Test Item Value Reference Range Interpretation Comments Hypochrom (test code = 1+ (02/13/16 1:44 AM) Hypochrom) [facility] CenterCzgqdwtPQKDMWFRLY8234-66-51 06:44:00 Test Item Value Reference Range Interpretation Comments Eosinophils (test code = 0.7 See_Comment [A utomated message] The Eosinophils) system which ge nerated this result tra nsmitted reference range : <=4.0. The reference r ozzy was not used to int erpret this result as normal/abnormal . [facility] CenterBgsxxzjQFWNCCCISN0081-12-25 06:44:00 Test Item Value Reference Range Interpretation Comments Lymphocytes (test code = Lymphocytes) 21.3 20.0-40.0 [facility] CenterUzxkdsfZHDOXHZVJX7472-10-84 06:44:00 Test Item Value Reference Range Interpretation Comments Monocytes (test code = Monocytes) 2.7 2.0-12.0 [facility] CenterGjckzabEAGFUUSZWR1907-98-14 06:44:00 Test Item Value Reference Range Interpretation Comments MPV (test code = MPV) 9.5 7.4-10.4 [facility] CenterUeewdroCBYRXYYLXT4744-61-32 06:44:00 Test Item Value Reference Range Interpretation Comments RDW (test code = RDW) 17.8 11.5-14.5 [facility] CenterXwntirwNGYKNIBFFR4357-94-06 06:44:00 Test Item Value Reference Range Interpretation Comments MCV (test code = MCV) 73.2 80.0-98.0 [facility] CenterHxdhomfRANRIVQQEX9027-74-37 06:44:00 Test Item Value Reference Range Interpretation Comments MCH (test code = MCH) 21.9 pg 27.0-31.0 [facility] CenterXpolufkWVUPNQMAHP4666-37-67 06:44:00 Test Item Value Reference Range Interpretation Comments Hct (test code = Hct) 27.2 36.0-48.0 [facility] CenterOhkvbltSDWJISZSIQ7056-84-02 06:44:00 Test Item Value Reference Range Interpretation Comments MCHC (test code = MCHC) 29.9 32.0-36.0 [facility] CenterEpgrfgpFAIVJYFQOA1638-25-60 06:44:00 Test Item Value Reference Range Interpretation Comments Platelet (test code = Platelet) 400 133-450 [facility] CenterPtbxmddLTOVFKGBJN5754-85-93 06:44:00 Test Item Value Reference Range Interpretation Comments WBC (test code = WBC) 12.4 3.7-10.4 [facility] CenterIbirtyjMHPCIBBSRO8135-29-17 06:44:00 Test Item Value Reference Range Interpretation Comments RBC (test code = RBC) 3.72 4.20-5.40 [facility] CenterZjjekvvOWQUAHPGEB9497-78-51 06:44:00 Test Item Value Reference Range Interpretation Comments Hgb (test code = Hgb) 8.1 12.0-16.0 [facility] CenterWyklhlxJJNOIMCPPZ7319-88-31 06:44:00 Test Item Value Reference Range Interpretation Comments PTT (test code = PTT) 27.2 s 22.9-35.8 [facility] CenterEukgwkwTBONKJCGKL4621-11-34 06:44:00 Test Item Value Reference Range Interpretation Comments PT (test code = PT) 14.7 s 12.0-14.7 [facility] CenterKfxoxlxREFVHKXANJ5618-70-06 06:44:00 Test Item Value Reference Range Interpretation Comments INR (test code = INR) 1.12 0.85-1.17 [facility] AND [id number] 07:51:00 Test Item Value Reference Range Interpretation Comments UA Bili (test code = Negative *NA*(09/04/14 UA Bili) 1:51 AM) [facility] AND [id number] 07:51:00 Test Item Value Reference Range Interpretation Comments UA Blood (test code = Large *ABN*(09/04/14 UA Blood) 1:51 AM) [facility] AND [id number] 07:51:00 Test Item Value Reference Range Interpretation Comments UA Leuk Est (test Negative (09/04/14 1:51 code = UA Leuk Est) AM) [facility] AND [id number] 07:51:00 Test Item Value Reference Range Interpretation Comments UA Nitrite (test code Negative (09/04/14 1:51 = UA Nitrite) AM) [facility] AND [id number] 07:51:00 Test Item Value Reference Range Interpretation Comments UA Amorph Joselin (test code = UA Few /HPF Amorph Joselin) [facility] AND [id number] 07:51:00 Test Item Value Reference Range Interpretation Comments UA RBC (test code 51-100 /HPF See_Comment [Automate d message] The = UA RBC) system which ge nerated this result tra nsmitted reference range : <=2. The reference r ozzy was not used to int erpret this result as normal/abnormal . [facility] AND [id number] 07:51:00 Test Item Value Reference Range Interpretation Comments UA WBC (test code = UA WBC) 6-10 /HPF [facility] [id number] 07:51:00 Test Item Value Reference Range Interpretation Comments UA Bacteria (test code = UA Few /HPF Bacteria) [facility] [id number] 07:51:00 Test Item Value Reference Range Interpretation Comments UA Sq Epi (test code = UA Sq Occasional /LPF Epi) [facility] [employer] [id number] 07:51:00 Test Item Value Reference Range Interpretation Comments ABO/Rh (test code = ABO/Rh) A POS [facility] [employer] [id number] 07:51:00 Test Item Value Reference Range Interpretation Comments Antibody Scrn (test Negative (09/04/14 1:51 code = Antibody Scrn) AM) [facility] [employer] [id number] 07:51:00 Test Item Value Reference Range Interpretation Comments Albumin Lvl (test code = Albumin Lvl) 3.4 3.5-5.0 [facility] [employer] [id number] 07:51:00 Test Item Value Reference Range Interpretation Comments Alk Phos (test code = Alk Phos) 64 39-136 [facility] [employer] [id number] 07:51:00 Test Item Value Reference Range Interpretation Comments ALT (test code = ALT) 18 See_Comment [Auto mated message] The system which ge nerated this result transmit gaye reference range : <=65. The reference range was not used to interpr et this result as satish l/abnormal. [facility] [employer] [id number] 07:51:00 Test Item Value Reference Range Interpretation Comments AST (test code = AST) 12 See_Comment [Auto mated message] The system which ge nerated this result transmit gaye reference range : <=37. The reference range was not used to interpr et this result as satish l/abnormal. [facility] [employer] [id number] 07:51:00 Test Item Value Reference Range Interpretation Comments eGFR (test code = eGFR) 93 [facility] [employer] [id number] 07:51:00 Test Item Value Reference Range Interpretation Comments Bili Total (test code = Bili Total) 0.3 0.2-1.3 [facility]2015-01-23 07:51:00 Test Item Value Reference Range Interpretation Comments Chloride Lvl (test code = Chloride Lvl) 108 95-109 [facility]2015-01-23 07:51:00 Test Item Value Reference Range Interpretation Comments Sodium Lvl (test code = Sodium Lvl) 138 135-145 [facility]2015-01-23 07:51:00 Test Item Value Reference Range Interpretation Comments Potassium Lvl (test code = Potassium 3.9 3.5-5.1 Lvl) [facility]2015-01-23 07:51:00 Test Item Value Reference Range Interpretation Comments CO2 (test code = CO2) 22 24-32 [facility]2015-01-23 07:51:00 Test Item Value Reference Range Interpretation Comments Calcium Lvl (test code = Calcium Lvl) 8.8 8.5-10.5 [facility]2015-01-23 07:51:00 Test Item Value Reference Range Interpretation Comments Glucose Lvl (test code = Glucose Lvl) 98 70-99 [facility]2015-01-23 07:51:00 Test Item Value Reference Range Interpretation Comments Total Protein (test code = Total 7.3 6.4-8.4 Protein) [facility]2015-01-23 07:51:00 Test Item Value Reference Range Interpretation Comments BUN (test code = BUN) 12 - [facility]2015-01-23 07:51:00 Test Item Value Reference Range Interpretation Comments Creatinine Lvl (test code = Creatinine 0.8 0.5-1.4 Lvl) [facility]2015-01-23 07:51:00 Test Item Value Reference Range Interpretation Comments AGAP (test code = AGAP) 11.9 10.0-20.0 [facility]2015-01-23 07:51:00 Test Item Value Reference Range Interpretation Comments B/C Ratio (test code = B/C Ratio) 15 6-25 [facility]2015-01-23 07:51:00 Test Item Value Reference Range Interpretation Comments Globulin (test code = Globulin) 3.9 2.0-4.0 [facility]2015-01-23 07:51:00 Test Item Value Reference Range Interpretation Comments A/G Ratio (test code = A/G Ratio) 0.9 0.7-1.6 [facility]HOUK[facility]YM5091-65-87 07:51:00 Test Item Value Reference Range Interpretation Comments hCG Tot (test code = hCG Tot) no gt [facility]HpycxpgBJYBTQNIUB8414-67-71 07:51:00 Test Item Value Reference Range Interpretation Comments MCHC (test code = MCHC) 33.8 32.0-36.0 [facility] CenterXqteadjHXPMHGJDIG7258-45-77 07:51:00 Test Item Value Reference Range Interpretation Comments MCH (test code = MCH) 30.3 pg 27.0-31.0 [facility] CenterNfzcsnzQQNTCSOMEK9548-18-75 07:51:00 Test Item Value Reference Range Interpretation Comments RDW (test code = RDW) 13.0 11.5-14.5 [facility] CenterWwinexdYWQQHQODQB5035-78-90 07:51:00 Test Item Value Reference Range Interpretation Comments MPV (test code = MPV) 8.4 7.4-10.4 [facility] CenterKpzslhbUNWBUGEUON7185-39-77 07:51:00 Test Item Value Reference Range Interpretation Comments Platelet (test code = Platelet) 356 133-450 [facility] CenterPrinbbrVVILGDRELQ8217-45-55 07:51:00 Test Item Value Reference Range Interpretation Comments RBC (test code = RBC) 4.45 4.20-5.40 [facility] CenterAuqatenGPSPKXTVHE9780-40-24 07:51:00 Test Item Value Reference Range Interpretation Comments WBC (test code = WBC) 12.9 3.7-10.4 [facility] CenterDshvrrpKDGUPKHVVL8302-83-46 07:51:00 Test Item Value Reference Range Interpretation Comments Hgb (test code = Hgb) 13.5 12.0-16.0 [facility] CenterKvexqniKRRLRFDLEE3550-59-88 07:51:00 Test Item Value Reference Range Interpretation Comments MCV (test code = MCV) 89.7 80.0-98.0 [facility] CenterRgtueyeGQEHHINVBO6866-64-08 07:51:00 Test Item Value Reference Range Interpretation Comments Hct (test code = Hct) 39.9 36.0-48.0 [facility] CenterRcldgxfRZOUFZYUDB0949-31-38 07:51:00 Test Item Value Reference Range Interpretation Comments Eosinophils # (test code 0.3 See_Comment [A utomated message] The = Eosinophils #) system whic h generated this result tra nsmitted reference range : <=0.5. The reference r ozzy was not used to int erpret this result as normal/abnormal . [facility] CenterBeundfeVDZIRVAXYE4152-73-20 07:51:00 Test Item Value Reference Range Interpretation Comments Lymphocytes # (test code = Lymphocytes 3.6 1.0-5.5 #) [facility] CenterHyqobrdNCYBVROEGP4163-69-85 07:51:00 Test Item Value Reference Range Interpretation Comments Monocytes # (test code 0.7 See_Comment [Aut omated message] The = Monocytes #) system which generated this result tra nsmitted reference range : <=0.8. The reference r ozzy was not used to int erpret this result as normal/abnormal . [facility] CenterQxrmeejYBZTZKGXXL8895-30-88 07:51:00 Test Item Value Reference Range Interpretation Comments Segs (test code = Segs) 63.9 45.0-75.0 [facility] CenterSfvisemFKIOLJDUTX7453-21-99 07:51:00 Test Item Value Reference Range Interpretation Comments Segs-Bands # (test code = Segs-Bands #) 8.2 1.5-8.1 [facility] CenterLaadhrrMJMBWARGJC8395-51-69 07:51:00 Test Item Value Reference Range Interpretation Comments Basophils (test code = 0.7 See_Comment [Aut omated message] The Basophils) system which ge nerated this result tra nsmitted reference range : <=1.0. The reference r ozzy was not used to int erpret this result as normal/abnormal . [facility] CenterCfmnnciKVGONLLHFI9364-43-80 07:51:00 Test Item Value Reference Range Interpretation Comments Monocytes (test code = Monocytes) 5.4 2.0-12.0 [facility] CenterHnvqawzFJQLLFPKJN0305-33-31 07:51:00 Test Item Value Reference Range Interpretation Comments Eosinophils (test code = 2.3 See_Comment [A utomated message] The Eosinophils) system which ge nerated this result tra nsmitted reference range : <=4.0. The reference r ozzy was not used to int erpret this result as normal/abnormal . [facility] CenterUwmmbmoFYJEOSDXWT3688-33-09 07:51:00 Test Item Value Reference Range Interpretation Comments Lymphocytes (test code = Lymphocytes) 27.7 20.0-40.0 [facility]odrxdJITALNZGNJ0139-01-60 07:51:00 Test Item Value Reference Range Interpretation Comments Basophils # (test code 0.1 See_Comment [Aut omated message] The = Basophils #) system which generated this result tra nsmitted reference range : <=0.2. The reference r ozzy was not used to int erpret this result as normal/abnormal . [facility] AND [id number] 07:51:00 Test Item Value Reference Range Interpretation Comments UA Urobilinogen (test code = UA 1.0 0.1-1.0 Urobilinogen) [facility] AND [id number] 07:51:00 Test Item Value Reference Range Interpretation Comments UA Turbidity (test code Cloudy *ABN*(09/04/14 = UA Turbidity) 1:51 AM) [facility] AND [id number] 07:51:00 Test Item Value Reference Range Interpretation Comments UA Color (test code = Red *ABN*(09/04/14 1:51 UA Color) AM) [facility] AND [id number] 07:51:00 Test Item Value Reference Range Interpretation Comments UA Ketones (test code Negative *NA*(09/04/14 = UA Ketones) 1:51 AM) [facility] AND [id number] 07:51:00 Test Item Value Reference Range Interpretation Comments UA Glucose (test code Negative (09/04/14 1:51 = UA Glucose) AM) [facility] AND [id number] 07:51:00 Test Item Value Reference Range Interpretation Comments UA Protein (test code = Trace *ABN*(09/04/14 UA Protein) 1:51 AM) [facility] AND [id number] 07:51:00 Test Item Value Reference Range Interpretation Comments UA pH (test code = UA pH) 8.0 1 5.0-8.0 [facility] AND [id number] 07:51:00 Test Item Value Reference Range Interpretation Comments UA Spec Grav (test code = UA Spec 1.015 1 Grav) [facility] AND [id number] 07:51:00 Test Item Value Reference Range Interpretation Comments UA Bili (test code = Negative *NA*(1/23/15 UA Bili) 1:51 AM) [facility] AND [id number] 07:51:00 Test Item Value Reference Range Interpretation Comments UA Blood (test code = Large *ABN*(09/04/14 UA Blood) 1:51 AM) [facility] AND [id number] 07:51:00 Test Item Value Reference Range Interpretation Comments UA Leuk Est (test Negative (09/04/14 1:51 code = UA Leuk Est) AM) [facility] AND [id number] 07:51:00 Test Item Value Reference Range Interpretation Comments UA Nitrite (test code Negative (09/04/14 1:51 = UA Nitrite) AM) [facility] AND [id number] 07:51:00 Test Item Value Reference Range Interpretation Comments UA Amorph Joselin (test code = UA Few /HPF Amorph Joselin) [facility] AND [id number] 07:51:00 Test Item Value Reference Range Interpretation Comments UA RBC (test code 51-100 /HPF See_Comment [Automate d message] The = UA RBC) system which ge nerated this result tra nsmitted reference range : <=2. The reference r ozzy was not used to int erpret this result as normal/abnormal . [facility] AND [id number] 07:51:00 Test Item Value Reference Range Interpretation Comments UA WBC (test code = UA WBC) 6-10 /HPF [facility] AND [id number] 07:51:00 Test Item Value Reference Range Interpretation Comments UA Bacteria (test code = UA Few /HPF Bacteria) [facility] AND [id number] 07:51:00 Test Item Value Reference Range Interpretation Comments UA Sq Epi (test code = UA Sq Occasional /LPF Epi) [facility] [employer] [id number] 07:51:00 Test Item Value Reference Range Interpretation Comments ABO/Rh (test code = ABO/Rh) A POS [facility] [employer] [id number] 07:51:00 Test Item Value Reference Range Interpretation Comments Antibody Scrn (test Negative (09/04/14 1:51 code = Antibody Scrn) AM) [facility] [employer] [id number] 07:51:00 Test Item Value Reference Range Interpretation Comments Albumin Lvl (test code = Albumin Lvl) 3.4 3.5-5.0 [facility]2015-01-23 07:51:00 Test Item Value Reference Range Interpretation Comments Alk Phos (test code = Alk Phos) 64 39-136 [facility]2015-01-23 07:51:00 Test Item Value Reference Range Interpretation Comments ALT (test code = ALT) 18 See_Comment [Auto mated message] The system which ge nerated this result transmit gaye reference range : <=65. The reference range was not used to interpr et this result as satish l/abnormal. [place] [id number] 07:51:00 Test Item Value Reference Range Interpretation Comments AST (test code = AST) 12 See_Comment [Auto mated message] The system which ge nerated this result transmit gaye reference range : <=37. The reference range was not used to interpr et this result as satish l/abnormal. [place] [id number] 07:51:00 Test Item Value Reference Range Interpretation Comments eGFR (test code = eGFR) 93 [facility]2015-01-23 07:51:00 Test Item Value Reference Range Interpretation Comments Bili Total (test code = Bili Total) 0.3 0.2-1.3 [place] [id number] 07:51:00 Test Item Value Reference Range Interpretation Comments Chloride Lvl (test code = Chloride Lvl) 108 95-109 [facility]2015-01-23 07:51:00 Test Item Value Reference Range Interpretation Comments Sodium Lvl (test code = Sodium Lvl) 138 135-145 [facility]2015-01-23 07:51:00 Test Item Value Reference Range Interpretation Comments Potassium Lvl (test code = Potassium 3.9 3.5-5.1 Lvl) [facility]2015-01-23 07:51:00 Test Item Value Reference Range Interpretation Comments CO2 (test code = CO2) 22 24-32 [facility]2015-01-23 07:51:00 Test Item Value Reference Range Interpretation Comments Calcium Lvl (test code = Calcium Lvl) 8.8 8.5-10.5 [facility]2015-01-23 07:51:00 Test Item Value Reference Range Interpretation Comments Glucose Lvl (test code = Glucose Lvl) 98 70-99 [facility]2015-01-23 07:51:00 Test Item Value Reference Range Interpretation Comments Total Protein (test code = Total 7.3 6.4-8.4 Protein) [facility]2015-01-23 07:51:00 Test Item Value Reference Range Interpretation Comments BUN (test code = BUN) 12 7-22 [facility]2015-01-23 07:51:00 Test Item Value Reference Range Interpretation Comments Creatinine Lvl (test code = Creatinine 0.8 0.5-1.4 Lvl) [facility]2015-01-23 07:51:00 Test Item Value Reference Range Interpretation Comments AGAP (test code = AGAP) 11.9 10.0-20.0 [facility]2015-01-23 07:51:00 Test Item Value Reference Range Interpretation Comments B/C Ratio (test code = B/C Ratio) 15 6-25 [facility]2015-01-23 07:51:00 Test Item Value Reference Range Interpretation Comments Globulin (test code = Globulin) 3.9 2.0-4.0 [facility]2015-01-23 07:51:00 Test Item Value Reference Range Interpretation Comments A/G Ratio (test code = A/G Ratio) 0.9 0.7-1.6 [place] [id number] 07:51:00 Test Item Value Reference Range Interpretation Comments hCG Tot (test code = hCG Tot) no gt [facility] CenterCodrhpnWXGKSLPEPJ8001-72-96 07:51:00 Test Item Value Reference Range Interpretation Comments MCHC (test code = MCHC) 33.8 32.0-36.0 [facility] [id number] 07:51:00 Test Item Value Reference Range Interpretation Comments MCH (test code = MCH) 30.3 pg 27.0-31.0 [facility] CenterNircmjvJHLLJKSEJC4231-99-67 07:51:00 Test Item Value Reference Range Interpretation Comments RDW (test code = RDW) 13.0 11.5-14.5 [facility] CenterGicupcbDDTKMKTWJV8250-09-87 07:51:00 Test Item Value Reference Range Interpretation Comments MPV (test code = MPV) 8.4 7.4-10.4 [facility] C[id number] 07:51:00 Test Item Value Reference Range Interpretation Comments Platelet (test code = Platelet) 356 133-450 [facility] CenterHqqsawuKGNWBARAMI6006-55-14 07:51:00 Test Item Value Reference Range Interpretation Comments RBC (test code = RBC) 4.45 4.20-5.40 [facility] CenterGxgizbkBVPAHSUYVF9477-05-11 07:51:00 Test Item Value Reference Range Interpretation Comments WBC (test code = WBC) 12.9 3.7-10.4 [facility] CenterFwhnqjhZJQKBQGIUC5985-22-89 07:51:00 Test Item Value Reference Range Interpretation Comments Hgb (test code = Hgb) 13.5 12.0-16.0 [facility] CenterEtnqmucQDYAECPIUS4805-96-49 07:51:00 Test Item Value Reference Range Interpretation Comments MCV (test code = MCV) 89.7 80.0-98.0 [facility] CenterAvqkmrqFWXPCHWTUR0851-34-21 07:51:00 Test Item Value Reference Range Interpretation Comments Hct (test code = Hct) 39.9 36.0-48.0 [facility] CenterJmfvkorUIHZEKGJAC2653-74-83 07:51:00 Test Item Value Reference Range Interpretation Comments Eosinophils # (test code 0.3 See_Comment [A utomated message] The = Eosinophils #) system whic h generated this result tra nsmitted reference range : <=0.5. The reference r ozzy was not used to int erpret this result as normal/abnormal . [facility] CenterNulmrzsXEZVYXCWDH6960-16-20 07:51:00 Test Item Value Reference Range Interpretation Comments Lymphocytes # (test code = Lymphocytes 3.6 1.0-5.5 #) [facility] CenterLffmzmpGTLMNHXOYF7280-84-50 07:51:00 Test Item Value Reference Range Interpretation Comments Monocytes # (test code 0.7 See_Comment [Aut omated message] The = Monocytes #) system which generated this result tra nsmitted reference range : <=0.8. The reference r ozzy was not used to int erpret this result as normal/abnormal . [facility] CenterGjntdzwYTRAJCEDVT0789-95-81 07:51:00 Test Item Value Reference Range Interpretation Comments Segs (test code = Segs) 63.9 45.0-75.0 [facility] CenterVkabntyTKPWLDIKMW4157-05-32 07:51:00 Test Item Value Reference Range Interpretation Comments Segs-Bands # (test code = Segs-Bands #) 8.2 1.5-8.1 [facility] CenterZueeofqCYBKOCWYOQ5431-86-20 07:51:00 Test Item Value Reference Range Interpretation Comments Basophils (test code = 0.7 See_Comment [Aut omated message] The Basophils) system which ge nerated this result tra nsmitted reference range : <=1.0. The reference r ozzy was not used to int erpret this result as normal/abnormal . [facility] CenterAdefnsaICULTUDAMK7629-59-78 07:51:00 Test Item Value Reference Range Interpretation Comments Monocytes (test code = Monocytes) 5.4 2.0-12.0 [facility] CenterYvjfsmcVJMAUAQLCJ6303-52-98 07:51:00 Test Item Value Reference Range Interpretation Comments Eosinophils (test code = 2.3 See_Comment [A utomated message] The Eosinophils) system which ge nerated this result tra nsmitted reference range : <=4.0. The reference r ozzy was not used to int erpret this result as normal/abnormal . [facility] CenterZmsiphtBXUUJQEFPE8164-07-26 07:51:00 Test Item Value Reference Range Interpretation Comments Lymphocytes (test code = Lymphocytes) 27.7 20.0-40.0 [facility] CenterBxstzzhOBTVOTHFUE2908-29-79 07:51:00 Test Item Value Reference Range Interpretation Comments Basophils # (test code 0.1 See_Comment [Aut omated message] The = Basophils #) system which generated this result tra nsmitted reference range : <=0.2. The reference r ozzy was not used to int erpret this result as normal/abnormal . [facility]2015-01-23 07:51:00 Test Item Value Reference Range Interpretation Comments UA Urobilinogen (test code = UA 1.0 0.1-1.0 Urobilinogen) [facility] [id number] 07:51:00 Test Item Value Reference Range Interpretation Comments UA Turbidity (test code Cloudy *ABN*(09/04/14 = UA Turbidity) 1:51 AM) [facility]2015-01-23 07:51:00 Test Item Value Reference Range Interpretation Comments UA Color (test code = Red *ABN*(09/04/14 1:51 UA Color) AM) [facility] [id number] 07:51:00 Test Item Value Reference Range Interpretation Comments UA Ketones (test code Negative *NA*(09/04/14 = UA Ketones) 1:51 AM) [facility] AND [id number] 07:51:00 Test Item Value Reference Range Interpretation Comments UA Glucose (test code Negative (09/04/14 1:51 = UA Glucose) AM) [facility] AND [id number] 07:51:00 Test Item Value Reference Range Interpretation Comments UA Protein (test code = Trace *ABN*(09/04/14 UA Protein) 1:51 AM) [facility] AND [id number] 07:51:00 Test Item Value Reference Range Interpretation Comments UA pH (test code = UA pH) 8.0 1 5.0-8.0 [facility] AND [id number] 07:51:00 Test Item Value Reference Range Interpretation Comments UA Spec Grav (test code = UA Spec 1.015 1 Grav) [facility] AND [id number] 07:51:00 Test Item Value Reference Range Interpretation Comments UA Bili (test code = Negative *NA*(09/04/14 UA Bili) 1:51 AM) [facility] AND [id number] 07:51:00 Test Item Value Reference Range Interpretation Comments UA Blood (test code = Large *ABN*(09/04/14 UA Blood) 1:51 AM) [facility] AND [id number] 07:51:00 Test Item Value Reference Range Interpretation Comments UA Leuk Est (test Negative (09/04/14 1:51 code = UA Leuk Est) AM) [facility] AND [id number] 07:51:00 Test Item Value Reference Range Interpretation Comments UA Nitrite (test code Negative (09/04/14 1:51 = UA Nitrite) AM) [facility] AND [id number] 07:51:00 Test Item Value Reference Range Interpretation Comments UA Amorph Joselin (test code = UA Few /HPF Amorph Joselin) [facility] AND [id number] 07:51:00 Test Item Value Reference Range Interpretation Comments UA RBC (test code 51-100 /HPF See_Comment [Automate d message] The = UA RBC) system which ge nerated this result tra nsmitted reference range : <=2. The reference r ozzy was not used to int erpret this result as normal/abnormal . [facility] AND [id number] 07:51:00 Test Item Value Reference Range Interpretation Comments UA WBC (test code = UA WBC) 6-10 /HPF [facility] AND [id number] 07:51:00 Test Item Value Reference Range Interpretation Comments UA Bacteria (test code = UA Few /HPF Bacteria) [facility] AND [id number] 07:51:00 Test Item Value Reference Range Interpretation Comments UA Sq Epi (test code = UA Sq Occasional /LPF Epi) [facility] [employer] [id number] 07:51:00 Test Item Value Reference Range Interpretation Comments ABO/Rh (test code = ABO/Rh) A POS [facility] [employer] [id number] 07:51:00 Test Item Value Reference Range Interpretation Comments Antibody Scrn (test Negative (09/04/14 1:51 code = Antibody Scrn) AM) [facility] [employer] [id number] 07:51:00 Test Item Value Reference Range Interpretation Comments Albumin Lvl (test code = Albumin Lvl) 3.4 3.5-5.0 [facility] [employer] [id number] 07:51:00 Test Item Value Reference Range Interpretation Comments Alk Phos (test code = Alk Phos) 64 39-136 [facility] [employer] [id number] 07:51:00 Test Item Value Reference Range Interpretation Comments ALT (test code = ALT) 18 See_Comment [Auto mated message] The system which ge nerated this result transmit gaye reference range : <=65. The reference range was not used to interpr et this result as satish l/abnormal. [facility] [employer] [id number] 07:51:00 Test Item Value Reference Range Interpretation Comments AST (test code = AST) 12 See_Comment [Auto mated message] The system which ge nerated this result transmit gaye reference range : <=37. The reference range was not used to interpr et this result as satish l/abnormal. [facility] [employer] [id number] 07:51:00 Test Item Value Reference Range Interpretation Comments eGFR (test code = eGFR) 93 [facility]2015-01-23 07:51:00 Test Item Value Reference Range Interpretation Comments Bili Total (test code = Bili Total) 0.3 0.2-1.3 [place] [facility]-01-23 07:51:00 Test Item Value Reference Range Interpretation Comments Chloride Lvl (test code = Chloride Lvl) 108 95-109 [facility]2015-01-23 07:51:00 Test Item Value Reference Range Interpretation Comments Sodium Lvl (test code = Sodium Lvl) 138 135-145 [facility]2015-01-23 07:51:00 Test Item Value Reference Range Interpretation Comments Potassium Lvl (test code = Potassium 3.9 3.5-5.1 Lvl) [facility]2015-01-23 07:51:00 Test Item Value Reference Range Interpretation Comments CO2 (test code = CO2) 22 24-32 [facility]2015-01-23 07:51:00 Test Item Value Reference Range Interpretation Comments Calcium Lvl (test code = Calcium Lvl) 8.8 8.5-10.5 [facility]2015-01-23 07:51:00 Test Item Value Reference Range Interpretation Comments Glucose Lvl (test code = Glucose Lvl) 98 70-99 [facility]2015-01-23 07:51:00 Test Item Value Reference Range Interpretation Comments Total Protein (test code = Total 7.3 6.4-8.4 Protein) [facility]2015-01-23 07:51:00 Test Item Value Reference Range Interpretation Comments BUN (test code = BUN) 12 - [facility]2015-01-23 07:51:00 Test Item Value Reference Range Interpretation Comments Creatinine Lvl (test code = Creatinine 0.8 0.5-1.4 Lvl) [facility]2015-01-23 07:51:00 Test Item Value Reference Range Interpretation Comments AGAP (test code = AGAP) 11.9 10.0-20.0 [facility]2015-01-23 07:51:00 Test Item Value Reference Range Interpretation Comments B/C Ratio (test code = B/C Ratio) 15 6-25 [facility]2015-01-23 07:51:00 Test Item Value Reference Range Interpretation Comments Globulin (test code = Globulin) 3.9 2.0-4.0 [facility] [id number] 07:51:00 Test Item Value Reference Range Interpretation Comments A/G Ratio (test code = A/G Ratio) 0.9 0.7-1.6 [facility]M[id number] 07:51:00 Test Item Value Reference Range Interpretation Comments hCG Tot (test code = hCG Tot) no gt [facility] CenterLxlqdvbCVFVQZOTPX7149-64-38 07:51:00 Test Item Value Reference Range Interpretation Comments MCHC (test code = MCHC) 33.8 32.0-36.0 [facility] CenterAnpkjulTCWGMRLNVO9381-93-15 07:51:00 Test Item Value Reference Range Interpretation Comments MCH (test code = MCH) 30.3 pg 27.0-31.0 [facility] CenterFankiswWGPTCFNUFN1276-56-04 07:51:00 Test Item Value Reference Range Interpretation Comments RDW (test code = RDW) 13.0 11.5-14.5 [facility] CenterIzbpvttNMAZISOOZT5303-81-58 07:51:00 Test Item Value Reference Range Interpretation Comments MPV (test code = MPV) 8.4 7.4-10.4 [facility] CenterTposzgqOEIGRXXBON4658-29-22 07:51:00 Test Item Value Reference Range Interpretation Comments Platelet (test code = Platelet) 356 133-450 [facility] CenterTltyhgkAFTGCBYWPN2848-63-29 07:51:00 Test Item Value Reference Range Interpretation Comments RBC (test code = RBC) 4.45 4.20-5.40 [facility] CenterYkdahtuLHRXEVUVRU5049-46-92 07:51:00 Test Item Value Reference Range Interpretation Comments WBC (test code = WBC) 12.9 3.7-10.4 [facility] CenterHnzyiajSOPKOTEZOH3469-90-13 07:51:00 Test Item Value Reference Range Interpretation Comments Hgb (test code = Hgb) 13.5 12.0-16.0 [facility] CenterZllyrjcYXEGMKGZMN0977-84-36 07:51:00 Test Item Value Reference Range Interpretation Comments MCV (test code = MCV) 89.7 80.0-98.0 [facility] CenterPlcnpgjZFLLZZSCXX2271-78-40 07:51:00 Test Item Value Reference Range Interpretation Comments Hct (test code = Hct) 39.9 36.0-48.0 [facility] CenterXedjnwhJKJBPOGNPY7635-92-69 07:51:00 Test Item Value Reference Range Interpretation Comments Eosinophils # (test code 0.3 See_Comment [A utomated message] The = Eosinophils #) system whic h generated this result tra nsmitted reference range : <=0.5. The reference r ozzy was not used to int erpret this result as normal/abnormal . [facility] CenterIntujafUMENUSQPNU2933-89-79 07:51:00 Test Item Value Reference Range Interpretation Comments Lymphocytes # (test code = Lymphocytes 3.6 1.0-5.5 #) [facility] CenterLyggrjlYOXKBDPFYI6294-07-93 07:51:00 Test Item Value Reference Range Interpretation Comments Monocytes # (test code 0.7 See_Comment [Aut omated message] The = Monocytes #) system which generated this result tra nsmitted reference range : <=0.8. The reference r ozzy was not used to int erpret this result as normal/abnormal . [facility] CenterCuzgbcvEAQMFQDWIU2061-86-93 07:51:00 Test Item Value Reference Range Interpretation Comments Segs (test code = Segs) 63.9 45.0-75.0 [facility] CenterTorwclhLSQLMZFPPK1861-08-42 07:51:00 Test Item Value Reference Range Interpretation Comments Segs-Bands # (test code = Segs-Bands #) 8.2 1.5-8.1 [facility] CenterPuzeeenNAEBYJDXXS6123-28-32 07:51:00 Test Item Value Reference Range Interpretation Comments Basophils (test code = 0.7 See_Comment [Aut omated message] The Basophils) system which ge nerated this result tra nsmitted reference range : <=1.0. The reference r ozzy was not used to int erpret this result as normal/abnormal . [facility] CenterEejfhwcFHAAZCOVWN3486-09-46 07:51:00 Test Item Value Reference Range Interpretation Comments Monocytes (test code = Monocytes) 5.4 2.0-12.0 [facility] CenterBcvhhyfOFBLYWJSUH5877-82-25 07:51:00 Test Item Value Reference Range Interpretation Comments Eosinophils (test code = 2.3 See_Comment [A utomated message] The Eosinophils) system which ge nerated this result tra nsmitted reference range : <=4.0. The reference r ozzy was not used to int erpret this result as normal/abnormal . [facility] CenterJqncxdhQDKOBXQSOV3529-85-62 07:51:00 Test Item Value Reference Range Interpretation Comments Lymphocytes (test code = Lymphocytes) 27.7 20.0-40.0 [facility] CenterSxaoizfUEIAZNCDQF6400-94-79 07:51:00 Test Item Value Reference Range Interpretation Comments Basophils # (test code 0.1 See_Comment [Aut omated message] The = Basophils #) system which generated this result tra nsmitted reference range : <=0.2. The reference r ozzy was not used to int erpret this result as normal/abnormal . [facility] AND [id number] 07:51:00 Test Item Value Reference Range Interpretation Comments UA Urobilinogen (test code = UA 1.0 0.1-1.0 Urobilinogen) [facility] AND [id number] 07:51:00 Test Item Value Reference Range Interpretation Comments UA Turbidity (test code Cloudy *ABN*(09/04/14 = UA Turbidity) 1:51 AM) [facility] [id number] 07:51:00 Test Item Value Reference Range Interpretation Comments UA Color (test code = Red *ABN*(09/04/14 1:51 UA Color) AM) [facility] [id number] 07:51:00 Test Item Value Reference Range Interpretation Comments UA Ketones (test code Negative *NA*(09/04/14 = UA Ketones) 1:51 AM) [facility] [id number] 07:51:00 Test Item Value Reference Range Interpretation Comments UA Glucose (test code Negative (09/04/14 1:51 = UA Glucose) AM) [facility] [id number] 07:51:00 Test Item Value Reference Range Interpretation Comments UA Protein (test code = Trace *ABN*(09/04/14 UA Protein) 1:51 AM) [facility] [id number] 07:51:00 Test Item Value Reference Range Interpretation Comments UA pH (test code = UA pH) 8.0 1 5.0-8.0 [facility] [id number] 07:51:00 Test Item Value Reference Range Interpretation Comments UA Spec Grav (test code = UA Spec 1.015 1 Grav) [facility] [id number] 07:51:00 Test Item Value Reference Range Interpretation Comments UA Bili (test code = Negative *NA*(09/04/14 UA Bili) 1:51 AM) [facility] [id number] 07:51:00 Test Item Value Reference Range Interpretation Comments UA Blood (test code = Large *ABN*(09/04/14 UA Blood) 1:51 AM) [facility] [id number] 07:51:00 Test Item Value Reference Range Interpretation Comments UA Leuk Est (test Negative (09/04/14 1:51 code = UA Leuk Est) AM) [facility] [id number] 07:51:00 Test Item Value Reference Range Interpretation Comments UA Nitrite (test code Negative (09/04/14 1:51 = UA Nitrite) AM) [facility] [id number] 07:51:00 Test Item Value Reference Range Interpretation Comments UA Amorph Joselin (test code = UA Few /HPF Amorph Joselin) [facility] [id number] 07:51:00 Test Item Value Reference Range Interpretation Comments UA RBC (test code 51-100 /HPF See_Comment [Automate d message] The = UA RBC) system which ge nerated this result tra nsmitted reference range : <=2. The reference r ozzy was not used to int erpret this result as normal/abnormal . [facility] [id number] 07:51:00 Test Item Value Reference Range Interpretation Comments UA WBC (test code = UA WBC) 6-10 /HPF [facility] [id number] 07:51:00 Test Item Value Reference Range Interpretation Comments UA Bacteria (test code = UA Few /HPF Bacteria) [facility] [id number] 07:51:00 Test Item Value Reference Range Interpretation Comments UA Sq Epi (test code = UA Sq Occasional /LPF Epi) [facility] [facility] [id number] 07:51:00 Test Item Value Reference Range Interpretation Comments ABO/Rh (test code = ABO/Rh) A POS [facility] [employer] [id number] 07:51:00 Test Item Value Reference Range Interpretation Comments Antibody Scrn (test Negative (09/04/14 1:51 code = Antibody Scrn) AM) [facility]2015-01-23 07:51:00 Test Item Value Reference Range Interpretation Comments Albumin Lvl (test code = Albumin Lvl) 3.4 3.5-5.0 [facility]2015-01-23 07:51:00 Test Item Value Reference Range Interpretation Comments Alk Phos (test code = Alk Phos) 64 39-136 [facility]2015-01-23 07:51:00 Test Item Value Reference Range Interpretation Comments ALT (test code = ALT) 18 See_Comment [Auto mated message] The system which ge nerated this result transmit gaye reference range : <=65. The reference range was not used to interpr et this result as satish l/abnormal. [facility]2015-01-23 07:51:00 Test Item Value Reference Range Interpretation Comments AST (test code = AST) 12 See_Comment [Auto mated message] The system which ge nerated this result transmit gaye reference range : <=37. The reference range was not used to interpr et this result as satish l/abnormal. [facility]2015-01-23 07:51:00 Test Item Value Reference Range Interpretation Comments eGFR (test code = eGFR) 93 [facility]2015-01-23 07:51:00 Test Item Value Reference Range Interpretation Comments Bili Total (test code = Bili Total) 0.3 0.2-1.3 [facility]2015-01-23 07:51:00 Test Item Value Reference Range Interpretation Comments Chloride Lvl (test code = Chloride Lvl) 108 95-109 [facility]2015-01-23 07:51:00 Test Item Value Reference Range Interpretation Comments Sodium Lvl (test code = Sodium Lvl) 138 135-145 [facility]2015-01-23 07:51:00 Test Item Value Reference Range Interpretation Comments Potassium Lvl (test code = Potassium 3.9 3.5-5.1 Lvl) [facility]2015-01-23 07:51:00 Test Item Value Reference Range Interpretation Comments CO2 (test code = CO2) 22 24-32 [facility]2015-01-23 07:51:00 Test Item Value Reference Range Interpretation Comments Calcium Lvl (test code = Calcium Lvl) 8.8 8.5-10.5 [facility] [id number] 07:51:00 Test Item Value Reference Range Interpretation Comments Glucose Lvl (test code = Glucose Lvl) 98 70-99 [facility] [id number] 07:51:00 Test Item Value Reference Range Interpretation Comments Total Protein (test code = Total 7.3 6.4-8.4 Protein) [facility]neW[facility] DaysCANNON MEMORIAL [id number] 07:51:00 Test Item Value Reference Range Interpretation Comments BUN (test code = BUN) 12 7-22 [facility] [id number] 07:51:00 Test Item Value Reference Range Interpretation Comments Creatinine Lvl (test code = Creatinine 0.8 0.5-1.4 Lvl) [facility] DaysCANNON MEMORIAL [id number] 07:51:00 Test Item Value Reference Range Interpretation Comments AGAP (test code = AGAP) 11.9 10.0-20.0 [facility] [id number] 07:51:00 Test Item Value Reference Range Interpretation Comments B/C Ratio (test code = B/C Ratio) 15 6-25 [facility] [id number] 07:51:00 Test Item Value Reference Range Interpretation Comments ABO/Rh (test code = ABO/Rh) A POS [facility] [id number] 07:51:00 Test Item Value Reference Range Interpretation Comments Antibody Scrn (test Negative (09/04/14 1:51 code = Antibody Scrn) AM) [facility] [id number] 07:51:00 Test Item Value Reference Range Interpretation Comments Albumin Lvl (test code = Albumin Lvl) 3.4 3.5-5.0 [facility] [id number] 07:51:00 Test Item Value Reference Range Interpretation Comments Alk Phos (test code = Alk Phos) 64 39-136 [facility] [id number] 07:51:00 Test Item Value Reference Range Interpretation Comments ALT (test code = ALT) 18 See_Comment [Auto mated message] The system which ge nerated this result transmit gaye reference range : <=65. The reference range was not used to interpr et this result as satish l/abnormal. [facility]2015-01-23 07:51:00 Test Item Value Reference Range Interpretation Comments AST (test code = AST) 12 See_Comment [Auto mated message] The system which ge nerated this result transmit gaye reference range : <=37. The reference range was not used to interpr et this result as satish l/abnormal. [place] [id number] 07:51:00 Test Item Value Reference Range Interpretation Comments eGFR (test code = eGFR) 93 [facility]2015-01-23 07:51:00 Test Item Value Reference Range Interpretation Comments Bili Total (test code = Bili Total) 0.3 0.2-1.3 [facility]2015-01-23 07:51:00 Test Item Value Reference Range Interpretation Comments Chloride Lvl (test code = Chloride Lvl) 108 95-109 [facility]2015-01-23 07:51:00 Test Item Value Reference Range Interpretation Comments Sodium Lvl (test code = Sodium Lvl) 138 135-145 [facility]2015-01-23 07:51:00 Test Item Value Reference Range Interpretation Comments Potassium Lvl (test code = Potassium 3.9 3.5-5.1 Lvl) [facility]2015-01-23 07:51:00 Test Item Value Reference Range Interpretation Comments CO2 (test code = CO2) 22 24-32 [facility]2015-01-23 07:51:00 Test Item Value Reference Range Interpretation Comments Calcium Lvl (test code = Calcium Lvl) 8.8 8.5-10.5 [facility]2015-01-23 07:51:00 Test Item Value Reference Range Interpretation Comments Glucose Lvl (test code = Glucose Lvl) 98 70-99 [facility]2015-01-23 07:51:00 Test Item Value Reference Range Interpretation Comments Total Protein (test code = Total 7.3 6.4-8.4 Protein) [facility]2015-01-23 07:51:00 Test Item Value Reference Range Interpretation Comments BUN (test code = BUN) 12 7-22 [facility]2015-01-23 07:51:00 Test Item Value Reference Range Interpretation Comments Creatinine Lvl (test code = Creatinine 0.8 0.5-1.4 Lvl) [facility]2015-01-23 07:51:00 Test Item Value Reference Range Interpretation Comments AGAP (test code = AGAP) 11.9 10.0-20.0 [facility]2015-01-23 07:51:00 Test Item Value Reference Range Interpretation Comments B/C Ratio (test code = B/C Ratio) 15 6-25 [facility]2015-01-23 07:51:00 Test Item Value Reference Range Interpretation Comments Globulin (test code = Globulin) 3.9 2.0-4.0 [facility]2015-01-23 07:51:00 Test Item Value Reference Range Interpretation Comments A/G Ratio (test code = A/G Ratio) 0.9 0.7-1.6 [place] [id number] 07:51:00 Test Item Value Reference Range Interpretation Comments hCG Tot (test code = hCG Tot) no gt [facility] [id number] 07:51:00 Test Item Value Reference Range Interpretation Comments MCHC (test code = MCHC) 33.8 32.0-36.0 [facility] [id number] 07:51:00 Test Item Value Reference Range Interpretation Comments MCH (test code = MCH) 30.3 pg 27.0-31.0 [facility] [id number] 07:51:00 Test Item Value Reference Range Interpretation Comments RDW (test code = RDW) 13.0 11.5-14.5 [facility] [id number] 07:51:00 Test Item Value Reference Range Interpretation Comments MPV (test code = MPV) 8.4 7.4-10.4 [facility] CenterVrlmyxaAGPGVUTNHQ4045-19-12 07:51:00 Test Item Value Reference Range Interpretation Comments Platelet (test code = Platelet) 356 133-450 [facility] CenterYzybnbjJWWQUCHVIB6434-74-10 07:51:00 Test Item Value Reference Range Interpretation Comments RBC (test code = RBC) 4.45 4.20-5.40 [facility] CenterJalsjxwOSWIRJKOAM9809-45-53 07:51:00 Test Item Value Reference Range Interpretation Comments WBC (test code = WBC) 12.9 3.7-10.4 [facility] CenterWisorpyOSLDUQXIUG2648-10-50 07:51:00 Test Item Value Reference Range Interpretation Comments Hgb (test code = Hgb) 13.5 12.0-16.0 [facility] CenterTuoxnerUQWXMRTUQA8241-59-21 07:51:00 Test Item Value Reference Range Interpretation Comments MCV (test code = MCV) 89.7 80.0-98.0 [facility] CenterAfwcgnaAGJCDSVHXJ2436-76-84 07:51:00 Test Item Value Reference Range Interpretation Comments Hct (test code = Hct) 39.9 36.0-48.0 [facility] CenterHhsfhagAUEUUVMBUR0977-42-61 07:51:00 Test Item Value Reference Range Interpretation Comments Eosinophils # (test code 0.3 See_Comment [A utomated message] The = Eosinophils #) system whic h generated this result tra nsmitted reference range : <=0.5. The reference r ozzy was not used to int erpret this result as normal/abnormal . [facility] CenterSfgetszMQDRWYONET6286-11-86 07:51:00 Test Item Value Reference Range Interpretation Comments Lymphocytes # (test code = Lymphocytes 3.6 1.0-5.5 #) [facility] CenterEkjgrfyIEWXFKFXRM2411-28-68 07:51:00 Test Item Value Reference Range Interpretation Comments Monocytes # (test code 0.7 See_Comment [Aut omated message] The = Monocytes #) system which generated this result tra nsmitted reference range : <=0.8. The reference r ozzy was not used to int erpret this result as normal/abnormal . [facility] CenterQqzpadhSZPDCKWSLS4586-05-91 07:51:00 Test Item Value Reference Range Interpretation Comments Segs (test code = Segs) 63.9 45.0-75.0 [facility] CenterIwmlwroQLIICCHHER7783-32-79 07:51:00 Test Item Value Reference Range Interpretation Comments Segs-Bands # (test code = Segs-Bands #) 8.2 1.5-8.1 [facility] CenterWiaafyuZXTLDGSWCG3597-28-29 07:51:00 Test Item Value Reference Range Interpretation Comments Basophils (test code = 0.7 See_Comment [Aut omated message] The Basophils) system which ge nerated this result tra nsmitted reference range : <=1.0. The reference r ozzy was not used to int erpret this result as normal/abnormal . [facility] CenterSpycorfVDQWJQGPKC2483-53-92 07:51:00 Test Item Value Reference Range Interpretation Comments Monocytes (test code = Monocytes) 5.4 2.0-12.0 [facility] CenterMegozjzNHKXVOAQKW2123-49-00 07:51:00 Test Item Value Reference Range Interpretation Comments Eosinophils (test code = 2.3 See_Comment [A utomated message] The Eosinophils) system which ge nerated this result tra nsmitted reference range : <=4.0. The reference r ozzy was not used to int erpret this result as normal/abnormal . [facility] CenterSjfsnqyZBAXKNQOHD8751-59-02 07:51:00 Test Item Value Reference Range Interpretation Comments Lymphocytes (test code = Lymphocytes) 27.7 20.0-40.0 [facility] CenterZmnjrqcSBWYUBJBJB1288-49-53 07:51:00 Test Item Value Reference Range Interpretation Comments Basophils # (test code 0.1 See_Comment [Aut omated message] The = Basophils #) system which generated this result tra nsmitted reference range : <=0.2. The reference r ozzy was not used to int erpret this result as normal/abnormal . [facility] [id number] 07:51:00 Test Item Value Reference Range Interpretation Comments UA Urobilinogen (test code = UA 1.0 0.1-1.0 Urobilinogen) [facility] [id number] 07:51:00 Test Item Value Reference Range Interpretation Comments UA Turbidity (test code Cloudy *ABN*(09/04/14 = UA Turbidity) 1:51 AM) [facility] [id number] 07:51:00 Test Item Value Reference Range Interpretation Comments UA Color (test code = Red *ABN*(09/04/14 1:51 UA Color) AM) [facility] [id number] 07:51:00 Test Item Value Reference Range Interpretation Comments UA Ketones (test code Negative *NA*(09/04/14 = UA Ketones) 1:51 AM) [facility] [id number] 07:51:00 Test Item Value Reference Range Interpretation Comments UA Glucose (test code Negative (09/04/14 1:51 = UA Glucose) AM) [facility] [id number] 07:51:00 Test Item Value Reference Range Interpretation Comments UA Protein (test code = Trace *ABN*(09/04/14 UA Protein) 1:51 AM) [facility] [id number] 07:51:00 Test Item Value Reference Range Interpretation Comments UA pH (test code = UA pH) 8.0 1 5.0-8.0 [facility] [id number] 07:51:00 Test Item Value Reference Range Interpretation Comments UA Spec Grav (test code = UA Spec 1.015 1 Grav) [facility] [id number] 07:51:00 Test Item Value Reference Range Interpretation Comments UA Bili (test code = Negative *NA*(09/04/14 UA Bili) 1:51 AM) [facility] [id number] 07:51:00 Test Item Value Reference Range Interpretation Comments UA Blood (test code = Large *ABN*(09/04/14 UA Blood) 1:51 AM) [facility] [id number] 07:51:00 Test Item Value Reference Range Interpretation Comments UA Leuk Est (test Negative (09/04/14 1:51 code = UA Leuk Est) AM) [facility] [id number] 07:51:00 Test Item Value Reference Range Interpretation Comments UA Nitrite (test code Negative (09/04/14 1:51 = UA Nitrite) AM) [facility] [id number] 07:51:00 Test Item Value Reference Range Interpretation Comments UA Amorph Joselin (test code = UA Few /HPF Amorph Joselin) [facility] [id number] 07:51:00 Test Item Value Reference Range Interpretation Comments UA RBC (test code 51-100 /HPF See_Comment [Automate d message] The = UA RBC) system which ge nerated this result tra nsmitted reference range : <=2. The reference r ozzy was not used to int erpret this result as normal/abnormal . [facility] AND [id number] 07:51:00 Test Item Value Reference Range Interpretation Comments UA WBC (test code = UA WBC) 6-10 /HPF [facility] AND [id number] 07:51:00 Test Item Value Reference Range Interpretation Comments UA Bacteria (test code = UA Few /HPF Bacteria) [facility] [id number] 07:51:00 Test Item Value Reference Range Interpretation Comments UA Sq Epi (test code = UA Sq Occasional /LPF Epi) [facility] [id number] 07:51:00 Test Item Value Reference Range Interpretation Comments Globulin (test code = Globulin) 3.9 2.0-4.0 [facility] [id number] 07:51:00 Test Item Value Reference Range Interpretation Comments A/G Ratio (test code = A/G Ratio) 0.9 0.7-1.6 [facility]SaiocveQXUTYTEGYPXOK4977-92-38 07:51:00 Test Item Value Reference Range Interpretation Comments hCG Tot (test code = hCG Tot) no gt [facility]IrxhllaDHVREJSHTA6021-88-52 07:51:00 Test Item Value Reference Range Interpretation Comments MCHC (test code = MCHC) 33.8 32.0-36.0 [facility] HospitalYnkxxguNRUTFZZQSE5578-15-36 07:51:00 Test Item Value Reference Range Interpretation Comments MCH (test code = MCH) 30.3 pg 27.0-31.0 [facility] HospitalObyodrbUQXIPJLXRI7056-60-47 07:51:00 Test Item Value Reference Range Interpretation Comments RDW (test code = RDW) 13.0 11.5-14.5 [facility] HospitalFqwgyykKNQCMQZGOD9326-60-39 07:51:00 Test Item Value Reference Range Interpretation Comments MPV (test code = MPV) 8.4 7.4-10.4 [facility] HospitalIigwfyeUBIQGJFEWW9052-01-60 07:51:00 Test Item Value Reference Range Interpretation Comments Platelet (test code = Platelet) 356 133-450 [facility] HospitalZrvyybgRDAIQTTLZX7683-16-07 07:51:00 Test Item Value Reference Range Interpretation Comments RBC (test code = RBC) 4.45 4.20-5.40 [facility] HospitalRikifsoVJJVDTKGIX5713-12-68 07:51:00 Test Item Value Reference Range Interpretation Comments WBC (test code = WBC) 12.9 3.7-10.4 [facility] HospitalOrabketPNYUTFFOEX7457-15-63 07:51:00 Test Item Value Reference Range Interpretation Comments Hgb (test code = Hgb) 13.5 12.0-16.0 [facility] HospitalYqlkzysIONOAEFYBG6994-33-16 07:51:00 Test Item Value Reference Range Interpretation Comments MCV (test code = MCV) 89.7 80.0-98.0 [facility] CenterKcpszuiWMZXERXWUQ9620-07-90 07:51:00 Test Item Value Reference Range Interpretation Comments Hct (test code = Hct) 39.9 36.0-48.0 [facility] CenterDdwsxjiGAONQQUKXG2254-08-92 07:51:00 Test Item Value Reference Range Interpretation Comments Eosinophils # (test code 0.3 See_Comment [A utomated message] The = Eosinophils #) system whic h generated this result tra nsmitted reference range : <=0.5. The reference r ozzy was not used to int erpret this result as normal/abnormal . [facility] CenterIquphayUMXQYOJJAJ4965-09-55 07:51:00 Test Item Value Reference Range Interpretation Comments Lymphocytes # (test code = Lymphocytes 3.6 1.0-5.5 #) [facility] CenterXazfkneSBMTKKQZXG2294-38-83 07:51:00 Test Item Value Reference Range Interpretation Comments Monocytes # (test code 0.7 See_Comment [Aut omated message] The = Monocytes #) system which generated this result tra nsmitted reference range : <=0.8. The reference r ozzy was not used to int erpret this result as normal/abnormal . [facility] CenterLbdxzvxZHZPJGKYAW1389-07-25 07:51:00 Test Item Value Reference Range Interpretation Comments Segs (test code = Segs) 63.9 45.0-75.0 [facility] CenterJmgroakTFWVJMNXUE6157-05-64 07:51:00 Test Item Value Reference Range Interpretation Comments Segs-Bands # (test code = Segs-Bands #) 8.2 1.5-8.1 [facility] CenterNnryjanBZPYOOYXVL1626-94-15 07:51:00 Test Item Value Reference Range Interpretation Comments Basophils (test code = 0.7 See_Comment [Aut omated message] The Basophils) system which ge nerated this result tra nsmitted reference range : <=1.0. The reference r ozzy was not used to int erpret this result as normal/abnormal . [facility] CenterSolbaqhJSWESLFTHL5912-42-84 07:51:00 Test Item Value Reference Range Interpretation Comments Monocytes (test code = Monocytes) 5.4 2.0-12.0 [facility] CenterMiddoioHWZWWGDRCA0815-80-55 07:51:00 Test Item Value Reference Range Interpretation Comments Eosinophils (test code = 2.3 See_Comment [A utomated message] The Eosinophils) system which ge nerated this result tra nsmitted reference range : <=4.0. The reference r ozzy was not used to int erpret this result as normal/abnormal . [facility] CenterHrfxwloIORLLAMCSP6010-04-98 07:51:00 Test Item Value Reference Range Interpretation Comments Lymphocytes (test code = Lymphocytes) 27.7 20.0-40.0 [facility] CenterLegypcbCXMOJNWBHW0251-26-21 07:51:00 Test Item Value Reference Range Interpretation Comments Basophils # (test code 0.1 See_Comment [Aut omated message] The = Basophils #) system which generated this result tra nsmitted reference range : <=0.2. The reference r ozzy was not used to int erpret this result as normal/abnormal . [facility] AND [id number] 07:51:00 Test Item Value Reference Range Interpretation Comments UA Urobilinogen (test code = UA 1.0 0.1-1.0 Urobilinogen) [facility] AND [id number] 07:51:00 Test Item Value Reference Range Interpretation Comments UA Turbidity (test code Cloudy *ABN*(09/04/14 = UA Turbidity) 1:51 AM) [facility] AND [id number] 07:51:00 Test Item Value Reference Range Interpretation Comments UA Color (test code = Red *ABN*(09/04/14 1:51 UA Color) AM) [facility] AND [id number] 07:51:00 Test Item Value Reference Range Interpretation Comments UA Ketones (test code Negative *NA*(09/04/14 = UA Ketones) 1:51 AM) [facility] AND [id number] 07:51:00 Test Item Value Reference Range Interpretation Comments UA Glucose (test code Negative (09/04/14 1:51 = UA Glucose) AM) [facility] AND [id number] 07:51:00 Test Item Value Reference Range Interpretation Comments UA Protein (test code = Trace *ABN*(09/04/14 UA Protein) 1:51 AM) [facility] AND [id number] 07:51:00 Test Item Value Reference Range Interpretation Comments UA pH (test code = UA pH) 8.0 1 5.0-8.0 [facility] AND [id number] 07:51:00 Test Item Value Reference Range Interpretation Comments UA Spec Grav (test code = UA Spec 1.015 1 Grav) [facility]2015-01-12 19:24:00 Test Item Value Reference Range Interpretation Comments Lipase Lvl (test code = Lipase Lvl) 104 73-393 [facility]2015-01-12 19:24:00 Test Item Value Reference Range Interpretation Comments eGFR (test code = eGFR) 109 [facility]2015-01-12 19:24:00 Test Item Value Reference Range Interpretation Comments Bili Total (test code = Bili Total) 0.6 0.2-1.3 [facility]2015-01-12 19:24:00 Test Item Value Reference Range Interpretation Comments Alk Phos (test code = Alk Phos) 72 39-136 [facility]2015-01-12 19:24:00 Test Item Value Reference Range Interpretation Comments Calcium Lvl (test code = Calcium Lvl) 8.8 8.5-10.5 [facility]2015-01-12 19:24:00 Test Item Value Reference Range Interpretation Comments CO2 (test code = CO2) 28 24-32 [facility]2015-01-12 19:24:00 Test Item Value Reference Range Interpretation Comments Chloride Lvl (test code = Chloride Lvl) 107 95-109 [facility]2015-01-12 19:24:00 Test Item Value Reference Range Interpretation Comments Potassium Lvl (test code = Potassium 3.9 3.5-5.1 Lvl) [facility]2015-01-12 19:24:00 Test Item Value Reference Range Interpretation Comments Glucose Lvl (test code = Glucose Lvl) 90 70-99 [facility]2015-01-12 19:24:00 Test Item Value Reference Range Interpretation Comments Sodium Lvl (test code = Sodium Lvl) 138 135-145 [facility]2015-01-12 19:24:00 Test Item Value Reference Range Interpretation Comments BUN (test code = BUN) 7 7-22 [facility]2015-01-12 19:24:00 Test Item Value Reference Range Interpretation Comments Creatinine Lvl (test code = Creatinine 0.7 0.5-1.4 Lvl) [facility]2015-01-12 19:24:00 Test Item Value Reference Range Interpretation Comments ALT (test code = ALT) 23 See_Comment [Auto mated message] The system which ge nerated this result transmit gaye reference range : <=65. The reference range was not used to interpr et this result as satish l/abnormal. [facility]2015-01-12 19:24:00 Test Item Value Reference Range Interpretation Comments AST (test code = AST) 12 See_Comment [Auto mated message] The system which ge nerated this result transmit gaye reference range : <=37. The reference range was not used to interpr et this result as satish l/abnormal. [facility]2015-01-12 19:24:00 Test Item Value Reference Range Interpretation Comments Albumin Lvl (test code = Albumin Lvl) 3.8 3.5-5.0 [facility]2015-01-12 19:24:00 Test Item Value Reference Range Interpretation Comments Total Protein (test code = Total 8.0 6.4-8.4 Protein) [facility]2015-01-12 19:24:00 Test Item Value Reference Range Interpretation Comments A/G Ratio (test code = A/G Ratio) 0.9 0.7-1.6 [facility]2015-01-12 19:24:00 Test Item Value Reference Range Interpretation Comments AGAP (test code = AGAP) 6.9 10.0-20.0 [facility]2015-01-12 19:24:00 Test Item Value Reference Range Interpretation Comments B/C Ratio (test code = B/C Ratio) 10 6-25 [facility]2015-01-12 19:24:00 Test Item Value Reference Range Interpretation Comments Globulin (test code = Globulin) 4.2 2.0-4.0 [facility]IomaliuFPBVVKZIRIZFO9272-10-94 19:24:00 Test Item Value Reference Range Interpretation Comments S Preg (test code = S Negative *NA*(08/24/14 Preg) 1:24 PM) [facility] CenterKyntixsVBXVTTMBED6625-73-31 19:24:00 Test Item Value Reference Range Interpretation Comments WBC (test code = WBC) 11.3 3.7-10.4 [facility] CenterZfhymnwZCJFDYJVZT2734-51-56 19:24:00 Test Item Value Reference Range Interpretation Comments RBC (test code = RBC) 4.75 4.20-5.40 [facility] CenterQietmcqEYCXTQYLEM7950-19-12 19:24:00 Test Item Value Reference Range Interpretation Comments Platelet (test code = Platelet) 402 133-450 [facility] CenterGwcnvptHDDBRHCVFH2775-63-49 19:24:00 Test Item Value Reference Range Interpretation Comments MCV (test code = MCV) 89.9 80.0-98.0 [facility] CenterAxahwauCWZZFVGPMN5897-64-96 19:24:00 Test Item Value Reference Range Interpretation Comments Hct (test code = Hct) 42.7 36.0-48.0 [facility] CenterRvrswhuTUUKNDEQFH2774-02-62 19:24:00 Test Item Value Reference Range Interpretation Comments Hgb (test code = Hgb) 14.5 12.0-16.0 [facility] CenterEsvcgvrOHHFJNAPFB0728-85-24 19:24:00 Test Item Value Reference Range Interpretation Comments RDW (test code = RDW) 13.5 11.5-14.5 [facility] CenterRzqjqazWXRGJIXAGY5140-76-03 19:24:00 Test Item Value Reference Range Interpretation Comments MCHC (test code = MCHC) 34.0 32.0-36.0 [facility] CenterYtjspuyGGYFCGKPCX9813-85-13 19:24:00 Test Item Value Reference Range Interpretation Comments MCH (test code = MCH) 30.6 pg 27.0-31.0 [facility] CenterUqrdieoRZMNQYSFVN1214-63-74 19:24:00 Test Item Value Reference Range Interpretation Comments MPV (test code = MPV) 8.1 7.4-10.4 [facility] CenterYcmfffgIWQXXETNMS9080-49-63 19:24:00 Test Item Value Reference Range Interpretation Comments Stomatocyte (test code = Stomatocyte) Slight [facility] CenterDnwsglvREYYQHDEGO0852-81-91 19:24:00 Test Item Value Reference Range Interpretation Comments Basophils # (test code 0.1 See_Comment [Aut omated message] The = Basophils #) system which generated this result tra nsmitted reference range : <=0.2. The reference r ozzy was not used to int erpret this result as normal/abnormal . [facility] CenterLtghwayELXZRBPYHV8993-14-29 19:24:00 Test Item Value Reference Range Interpretation Comments Eosinophils # (test code 0.2 See_Comment [A utomated message] The = Eosinophils #) system whic h generated this result tra nsmitted reference range : <=0.5. The reference r ozzy was not used to int erpret this result as normal/abnormal . [facility] CenterGcrrfhjRWPVHDAAVF1712-78-03 19:24:00 Test Item Value Reference Range Interpretation Comments Hypochrom (test code = 1+ (08/24/14 1:24 PM) Hypochrom) [facility] CenterZhfplbaRKRXGRMYNM4898-02-43 19:24:00 Test Item Value Reference Range Interpretation Comments Lymphocytes # (test code = Lymphocytes 2.8 1.0-5.5 #) [facility] CenterVjeaaboMAQBTNQOMM1906-57-63 19:24:00 Test Item Value Reference Range Interpretation Comments Segs-Bands # (test code = Segs-Bands #) 8.1 1.5-8.1 [facility] CenterXpwobgqAFWFURIAQS1947-36-27 19:24:00 Test Item Value Reference Range Interpretation Comments Monocytes # (test code 0.2 See_Comment [Aut omated message] The = Monocytes #) system which generated this result tra nsmitted reference range : <=0.8. The reference r ozzy was not used to int erpret this result as normal/abnormal . [facility] CenterPooyzvaAPPSRZYZBP6986-21-30 19:24:00 Test Item Value Reference Range Interpretation Comments Lymphocytes (test code = Lymphocytes) 24.5 20.0-40.0 [facility] CenterNdhvqiuSWAHCWUVJP9849-73-08 19:24:00 Test Item Value Reference Range Interpretation Comments Segs (test code = Segs) 71.8 45.0-75.0 [facility] CenterKvlthtkXDIIXTJMGS6890-70-53 19:24:00 Test Item Value Reference Range Interpretation Comments Basophils (test code = 0.6 See_Comment [Aut omated message] The Basophils) system which ge nerated this result tra nsmitted reference range : <=1.0. The reference r ozzy was not used to int erpret this result as normal/abnormal . [facility] CenterHhzngwlKTGRKPGQDQ8410-21-91 19:24:00 Test Item Value Reference Range Interpretation Comments Monocytes (test code = Monocytes) 1.5 2.0-12.0 [facility] CenterXpuulzbUOSRCNYRHW6467-43-58 19:24:00 Test Item Value Reference Range Interpretation Comments Eosinophils (test code = 1.6 See_Comment [A utomated message] The Eosinophils) system which ge nerated this result tra nsmitted reference range : <=4.0. The reference r ozzy was not used to int erpret this result as normal/abnormal . [facility] CenterJzgsuhgLMCQIXDIFF1346-47-76 19:24:00 Test Item Value Reference Range Interpretation Comments Plt Morph (test code = Normal (08/24/14 1:24 Plt Morph) PM) [facility] AND [id number] 19:24:00 Test Item Value Reference Range Interpretation Comments UA Sq Epi (test code = UA Sq Occasional /LPF Epi) [facility] AND [id number] 19:24:00 Test Item Value Reference Range Interpretation Comments UA Bacteria (test code = UA Occasional /HPF Bacteria) [facility] AND [id number] 19:24:00 Test Item Value Reference Range Interpretation Comments UA Mucus (test code = None Seen (08/24/14 UA Mucus) 1:24 PM) [facility] AND [id number] 19:24:00 Test Item Value Reference Range Interpretation Comments UA WBC (test code = UA WBC) 0-2 /HPF [facility] AND [id number] 19:24:00 Test Item Value Reference Range Interpretation Comments UA RBC (test code = 0-2 /HPF See_Comment [Automa gaye message] The UA RBC) system which ge nerated this result tra nsmitted reference range : <=2. The reference range was not used to interpr et this result as satish l/abnormal. [facility] AND [id number] 19:24:00 Test Item Value Reference Range Interpretation Comments UA Leuk Est (test Moderate *ABN*(08/24/14 code = UA Leuk Est) 1:24 PM) [facility] AND [id number] 19:24:00 Test Item Value Reference Range Interpretation Comments UA Nitrite (test code Negative (08/24/14 1:24 = UA Nitrite) PM) [facility] AND [id number] 19:24:00 Test Item Value Reference Range Interpretation Comments UA Urobilinogen (test code = UA 0.2 0.1-1.0 Urobilinogen) [facility] AND [id number] 19:24:00 Test Item Value Reference Range Interpretation Comments UA Ketones (test code Negative *NA*(08/24/14 = UA Ketones) 1:24 PM) [facility] AND [id number] 19:24:00 Test Item Value Reference Range Interpretation Comments UA Blood (test code = Negative (08/24/14 1:24 UA Blood) PM) [facility] AND [id number] 19:24:00 Test Item Value Reference Range Interpretation Comments UA Bili (test code = Negative *NA*(08/24/14 UA Bili) 1:24 PM) [facility] AND [id number] 19:24:00 Test Item Value Reference Range Interpretation Comments UA Color (test code = Yellow *NA*(08/24/14 UA Color) 1:24 PM) [facility] AND [id number] 19:24:00 Test Item Value Reference Range Interpretation Comments UA Glucose (test code Negative (08/24/14 1:24 = UA Glucose) PM) [facility] AND [id number] 19:24:00 Test Item Value Reference Range Interpretation Comments UA Protein (test code Negative (08/24/14 1:24 = UA Protein) PM) [facility] AND [id number] 19:24:00 Test Item Value Reference Range Interpretation Comments UA pH (test code = UA pH) 6.0 1 5.0-8.0 [facility] AND [id number] 19:24:00 Test Item Value Reference Range Interpretation Comments UA Spec Grav (test code *NA*(08/24/14 1:24 PM) = UA Spec Grav) [facility] AND [id number] 19:24:00 Test Item Value Reference Range Interpretation Comments UA Turbidity (test code = Clear (08/24/14 1:24 UA Turbidity) PM) [facility] [id number] 19:24:00 Test Item Value Reference Range Interpretation Comments Lipase Lvl (test code = Lipase Lvl) 104 73-393 [facility] [id number] 19:24:00 Test Item Value Reference Range Interpretation Comments eGFR (test code = eGFR) 109 [facility]2015-01-12 19:24:00 Test Item Value Reference Range Interpretation Comments Bili Total (test code = Bili Total) 0.6 0.2-1.3 [facility]2015-01-12 19:24:00 Test Item Value Reference Range Interpretation Comments Alk Phos (test code = Alk Phos) 72 39-136 [facility]2015-01-12 19:24:00 Test Item Value Reference Range Interpretation Comments Calcium Lvl (test code = Calcium Lvl) 8.8 8.5-10.5 [facility]2015-01-12 19:24:00 Test Item Value Reference Range Interpretation Comments CO2 (test code = CO2) 28 24-32 [facility]2015-01-12 19:24:00 Test Item Value Reference Range Interpretation Comments Chloride Lvl (test code = Chloride Lvl) 107 95-109 [facility]2015-01-12 19:24:00 Test Item Value Reference Range Interpretation Comments Potassium Lvl (test code = Potassium 3.9 3.5-5.1 Lvl) [facility]2015-01-12 19:24:00 Test Item Value Reference Range Interpretation Comments Glucose Lvl (test code = Glucose Lvl) 90 70-99 [facility]2015-01-12 19:24:00 Test Item Value Reference Range Interpretation Comments Sodium Lvl (test code = Sodium Lvl) 138 135-145 [facility]2015-01-12 19:24:00 Test Item Value Reference Range Interpretation Comments BUN (test code = BUN) 7 7-22 [facility]2015-01-12 19:24:00 Test Item Value Reference Range Interpretation Comments Creatinine Lvl (test code = Creatinine 0.7 0.5-1.4 Lvl) [facility]2015-01-12 19:24:00 Test Item Value Reference Range Interpretation Comments ALT (test code = ALT) 23 See_Comment [Auto mated message] The system which ge nerated this result transmit gaye reference range : <=65. The reference range was not used to interpr et this result as satish l/abnormal. [facility]2015-01-12 19:24:00 Test Item Value Reference Range Interpretation Comments AST (test code = AST) 12 See_Comment [Auto mated message] The system which ge nerated this result transmit gaye reference range : <=37. The reference range was not used to interpr et this result as astish l/abnormal. [facility]2015-01-12 19:24:00 Test Item Value Reference Range Interpretation Comments Albumin Lvl (test code = Albumin Lvl) 3.8 3.5-5.0 [facility]2015-01-12 19:24:00 Test Item Value Reference Range Interpretation Comments Total Protein (test code = Total 8.0 6.4-8.4 Protein) [facility]2015-01-12 19:24:00 Test Item Value Reference Range Interpretation Comments A/G Ratio (test code = A/G Ratio) 0.9 0.7-1.6 [facility]2015-01-12 19:24:00 Test Item Value Reference Range Interpretation Comments AGAP (test code = AGAP) 6.9 10.0-20.0 [facility]2015-01-12 19:24:00 Test Item Value Reference Range Interpretation Comments B/C Ratio (test code = B/C Ratio) 10 6-25 [facility]2015-01-12 19:24:00 Test Item Value Reference Range Interpretation Comments Globulin (test code = Globulin) 4.2 2.0-4.0 [facility]kqhutbJUAPMSLTFPZHN0362-15-05 19:24:00 Test Item Value Reference Range Interpretation Comments S Preg (test code = S Negative *NA*(08/24/14 Preg) 1:24 PM) [facility] CenterQolpuerEMSEHEYQRN5984-95-71 19:24:00 Test Item Value Reference Range Interpretation Comments WBC (test code = WBC) 11.3 3.7-10.4 [facility] CenterWgmugmsSTMJOHVMQJ1496-82-92 19:24:00 Test Item Value Reference Range Interpretation Comments RBC (test code = RBC) 4.75 4.20-5.40 [facility] CenterNpvcurrMDZFFAPQBW2132-03-72 19:24:00 Test Item Value Reference Range Interpretation Comments Platelet (test code = Platelet) 402 133-450 [facility] CenterNktzuibYHZZJVPXGI0847-20-27 19:24:00 Test Item Value Reference Range Interpretation Comments MCV (test code = MCV) 89.9 80.0-98.0 [facility] CenterTxzcynzDHVQFNSPHR5339-88-34 19:24:00 Test Item Value Reference Range Interpretation Comments Hct (test code = Hct) 42.7 36.0-48.0 [facility] CenterPfuyhoeJDZODSTIMY2096-78-29 19:24:00 Test Item Value Reference Range Interpretation Comments Hgb (test code = Hgb) 14.5 12.0-16.0 [facility] CenterEhtwaegNHGNCIVEUQ7755-86-63 19:24:00 Test Item Value Reference Range Interpretation Comments RDW (test code = RDW) 13.5 11.5-14.5 [facility] CenterQzzertjZZVVGGANTA0885-54-87 19:24:00 Test Item Value Reference Range Interpretation Comments MCHC (test code = MCHC) 34.0 32.0-36.0 [facility] CenterThptatqGMJXUCVSDY1035-08-81 19:24:00 Test Item Value Reference Range Interpretation Comments MCH (test code = MCH) 30.6 pg 27.0-31.0 [facility] CenterFyfufwzLPZTVURWTG5446-11-11 19:24:00 Test Item Value Reference Range Interpretation Comments MPV (test code = MPV) 8.1 7.4-10.4 [facility] CenterFujdjytJKBRBGVBXV6212-42-10 19:24:00 Test Item Value Reference Range Interpretation Comments Stomatocyte (test code = Stomatocyte) Slight [facility] CenterXzodwbsVPPKLCFFUI7648-53-36 19:24:00 Test Item Value Reference Range Interpretation Comments Basophils # (test code 0.1 See_Comment [Aut omated message] The = Basophils #) system which generated this result tra nsmitted reference range : <=0.2. The reference r ozzy was not used to int erpret this result as normal/abnormal . [facility]MnhdzgpOXTURXGVSW3927-15-80 19:24:00 Test Item Value Reference Range Interpretation Comments Eosinophils # (test code 0.2 See_Comment [A utomated message] The = Eosinophils #) system whic h generated this result tra nsmitted reference range : <=0.5. The reference r ozzy was not used to int erpret this result as normal/abnormal . [facility] Cent[id number] 19:24:00 Test Item Value Reference Range Interpretation Comments Hypochrom (test code = 1+ (08/24/14 1:24 PM) Hypochrom) [facility] Cent[id number] 19:24:00 Test Item Value Reference Range Interpretation Comments Lymphocytes # (test code = Lymphocytes 2.8 1.0-5.5 #) [facility] CenterAjkqiwnNIEJMKCDZH1058-20-13 19:24:00 Test Item Value Reference Range Interpretation Comments Segs-Bands # (test code = Segs-Bands #) 8.1 1.5-8.1 [facility] CenterDfqayoqYXHPMOBKSU2532-13-70 19:24:00 Test Item Value Reference Range Interpretation Comments Monocytes # (test code 0.2 See_Comment [Aut omated message] The = Monocytes #) system which generated this result tra nsmitted reference range : <=0.8. The reference r ozzy was not used to int erpret this result as normal/abnormal . [facility] CenterQjxgqmhCWHWMBENTF0986-80-85 19:24:00 Test Item Value Reference Range Interpretation Comments Lymphocytes (test code = Lymphocytes) 24.5 20.0-40.0 [facility] CenterDfqoftzOJMNFXJHUJ9798-05-52 19:24:00 Test Item Value Reference Range Interpretation Comments Segs (test code = Segs) 71.8 45.0-75.0 [facility] CenterIyxhcpeMBGWLXWPBA1814-53-04 19:24:00 Test Item Value Reference Range Interpretation Comments Basophils (test code = 0.6 See_Comment [Aut omated message] The Basophils) system which ge nerated this result tra nsmitted reference range : <=1.0. The reference r ozzy was not used to int erpret this result as normal/abnormal . [facility] CenterFopghekSKIKXAHJAZ9469-40-90 19:24:00 Test Item Value Reference Range Interpretation Comments Monocytes (test code = Monocytes) 1.5 2.0-12.0 [facility] CenterUxwdcghBSXXVZAQHV5322-14-67 19:24:00 Test Item Value Reference Range Interpretation Comments Eosinophils (test code = 1.6 See_Comment [A utomated message] The Eosinophils) system which ge nerated this result tra nsmitted reference range : <=4.0. The reference r ozzy was not used to int erpret this result as normal/abnormal . [facility] CenterLkwjrilIRGDHPZZNT3424-71-31 19:24:00 Test Item Value Reference Range Interpretation Comments Plt Morph (test code = Normal (08/24/14 1:24 Plt Morph) PM) [facility] AND [id number] 19:24:00 Test Item Value Reference Range Interpretation Comments UA Sq Epi (test code = UA Sq Occasional /LPF Epi) [facility] [id number] 19:24:00 Test Item Value Reference Range Interpretation Comments UA Bacteria (test code = UA Occasional /HPF Bacteria) [facility] AND [id number] 19:24:00 Test Item Value Reference Range Interpretation Comments UA Mucus (test code = None Seen (08/24/14 UA Mucus) 1:24 PM) [facility] AND [id number] 19:24:00 Test Item Value Reference Range Interpretation Comments UA WBC (test code = UA WBC) 0-2 /HPF [facility] AND [id number] 19:24:00 Test Item Value Reference Range Interpretation Comments UA RBC (test code = 0-2 /HPF See_Comment [Automa gaye message] The UA RBC) system which ge nerated this result tra nsmitted reference range : <=2. The reference range was not used to interpr et this result as satish l/abnormal. [facility] AND [id number] 19:24:00 Test Item Value Reference Range Interpretation Comments UA Leuk Est (test Moderate *ABN*(08/24/14 code = UA Leuk Est) 1:24 PM) [facility] AND [id number] 19:24:00 Test Item Value Reference Range Interpretation Comments UA Nitrite (test code Negative (08/24/14 1:24 = UA Nitrite) PM) [facility] AND [id number] 19:24:00 Test Item Value Reference Range Interpretation Comments UA Urobilinogen (test code = UA 0.2 0.1-1.0 Urobilinogen) [facility] AND [id number] 19:24:00 Test Item Value Reference Range Interpretation Comments UA Ketones (test code Negative *NA*(08/24/14 = UA Ketones) 1:24 PM) [facility] AND [id number] 19:24:00 Test Item Value Reference Range Interpretation Comments UA Blood (test code = Negative (08/24/14 1:24 UA Blood) PM) [facility] AND [id number] 19:24:00 Test Item Value Reference Range Interpretation Comments UA Bili (test code = Negative *NA*(08/24/14 UA Bili) 1:24 PM) [facility] AND [id number] 19:24:00 Test Item Value Reference Range Interpretation Comments UA Color (test code = Yellow *NA*(08/24/14 UA Color) 1:24 PM) [facility] AND [id number] 19:24:00 Test Item Value Reference Range Interpretation Comments UA Glucose (test code Negative (08/24/14 1:24 = UA Glucose) PM) [facility] AND [id number] 19:24:00 Test Item Value Reference Range Interpretation Comments UA Protein (test code Negative (08/24/14 1:24 = UA Protein) PM) [facility] AND [id number] 19:24:00 Test Item Value Reference Range Interpretation Comments UA pH (test code = UA pH) 6.0 1 5.0-8.0 [facility] AND [id number] 19:24:00 Test Item Value Reference Range Interpretation Comments UA Spec Grav (test code *NA*(08/24/14 1:24 PM) = UA Spec Grav) [facility] AND [id number] 19:24:00 Test Item Value Reference Range Interpretation Comments UA Turbidity (test code = Clear (08/24/14 1:24 UA Turbidity) PM) [facility]2015-01-12 19:24:00 Test Item Value Reference Range Interpretation Comments Lipase Lvl (test code = Lipase Lvl) 104 73-393 [facility]2015-01-12 19:24:00 Test Item Value Reference Range Interpretation Comments eGFR (test code = eGFR) 109 [facility]2015-01-12 19:24:00 Test Item Value Reference Range Interpretation Comments Bili Total (test code = Bili Total) 0.6 0.2-1.3 [facility]2015-01-12 19:24:00 Test Item Value Reference Range Interpretation Comments Alk Phos (test code = Alk Phos) 72 39-136 [facility]2015-01-12 19:24:00 Test Item Value Reference Range Interpretation Comments Calcium Lvl (test code = Calcium Lvl) 8.8 8.5-10.5 [facility]2015-01-12 19:24:00 Test Item Value Reference Range Interpretation Comments CO2 (test code = CO2) 28 24-32 [facility]2015-01-12 19:24:00 Test Item Value Reference Range Interpretation Comments Chloride Lvl (test code = Chloride Lvl) 107 95-109 [facility]2015-01-12 19:24:00 Test Item Value Reference Range Interpretation Comments Potassium Lvl (test code = Potassium 3.9 3.5-5.1 Lvl) [facility]2015-01-12 19:24:00 Test Item Value Reference Range Interpretation Comments Glucose Lvl (test code = Glucose Lvl) 90 70-99 [facility]2015-01-12 19:24:00 Test Item Value Reference Range Interpretation Comments Sodium Lvl (test code = Sodium Lvl) 138 135-145 [facility]2015-01-12 19:24:00 Test Item Value Reference Range Interpretation Comments BUN (test code = BUN) 7 7-22 [facility]2015-01-12 19:24:00 Test Item Value Reference Range Interpretation Comments Creatinine Lvl (test code = Creatinine 0.7 0.5-1.4 Lvl) [facility]2015-01-12 19:24:00 Test Item Value Reference Range Interpretation Comments ALT (test code = ALT) 23 See_Comment [Auto mated message] The system which ge nerated this result transmit gaye reference range : <=65. The reference range was not used to interpr et this result as satish l/abnormal. [facility]2015-01-12 19:24:00 Test Item Value Reference Range Interpretation Comments AST (test code = AST) 12 See_Comment [Auto mated message] The system which ge nerated this result transmit gaye reference range : <=37. The reference range was not used to interpr et this result as satish l/abnormal. [facility]2015-01-12 19:24:00 Test Item Value Reference Range Interpretation Comments Albumin Lvl (test code = Albumin Lvl) 3.8 3.5-5.0 [facility]2015-01-12 19:24:00 Test Item Value Reference Range Interpretation Comments Total Protein (test code = Total 8.0 6.4-8.4 Protein) [facility]2015-01-12 19:24:00 Test Item Value Reference Range Interpretation Comments A/G Ratio (test code = A/G Ratio) 0.9 0.7-1.6 [facility]2015-01-12 19:24:00 Test Item Value Reference Range Interpretation Comments AGAP (test code = AGAP) 6.9 10.0-20.0 [facility]2015-01-12 19:24:00 Test Item Value Reference Range Interpretation Comments B/C Ratio (test code = B/C Ratio) 10 6-25 [facility]2015-01-12 19:24:00 Test Item Value Reference Range Interpretation Comments Globulin (test code = Globulin) 4.2 2.0-4.0 [id number] 19:24:00 Test Item Value Reference Range Interpretation Comments S Preg (test code = S Negative *NA*(08/24/14 Preg) 1:24 PM) [facility] CenterBkbrcnmDELOPBIMWZ6289-14-30 19:24:00 Test Item Value Reference Range Interpretation Comments WBC (test code = WBC) 11.3 3.7-10.4 [facility] CenterHtmtdbwKMDEIJAZXJ7524-95-79 19:24:00 Test Item Value Reference Range Interpretation Comments RBC (test code = RBC) 4.75 4.20-5.40 [facility] CenterIpnilpxQGKLTIFUVW1857-89-21 19:24:00 Test Item Value Reference Range Interpretation Comments Platelet (test code = Platelet) 402 133-450 [facility] CenterSywusobUHTTFMCPSO5331-16-56 19:24:00 Test Item Value Reference Range Interpretation Comments MCV (test code = MCV) 89.9 80.0-98.0 [facility] CenterRfynaxsAQAUYAKOAZ0801-79-25 19:24:00 Test Item Value Reference Range Interpretation Comments Hct (test code = Hct) 42.7 36.0-48.0 [facility] CenterGfkqrnvWMTOZPCQXA4932-08-41 19:24:00 Test Item Value Reference Range Interpretation Comments Hgb (test code = Hgb) 14.5 12.0-16.0 [facility] CenterIbffizhFJNYCCTMLC7844-31-89 19:24:00 Test Item Value Reference Range Interpretation Comments RDW (test code = RDW) 13.5 11.5-14.5 [facility] CenterZobmaceWZXHPSVZXK3526-90-81 19:24:00 Test Item Value Reference Range Interpretation Comments MCHC (test code = MCHC) 34.0 32.0-36.0 [facility] CenterEjwcyvjACGCFNIPQU3973-80-62 19:24:00 Test Item Value Reference Range Interpretation Comments MCH (test code = MCH) 30.6 pg 27.0-31.0 [facility] CenterLuscmbvHYSFSAPRXD0786-61-35 19:24:00 Test Item Value Reference Range Interpretation Comments MPV (test code = MPV) 8.1 7.4-10.4 [facility] CenterSmqaxcfWQVTKYJFHC0152-05-76 19:24:00 Test Item Value Reference Range Interpretation Comments Stomatocyte (test code = Stomatocyte) Slight [facility] CenterVnwwuhfTCAAHYQZQP3106-85-05 19:24:00 Test Item Value Reference Range Interpretation Comments Basophils # (test code 0.1 See_Comment [Aut omated message] The = Basophils #) system which generated this result tra nsmitted reference range : <=0.2. The reference r ozzy was not used to int erpret this result as normal/abnormal . [facility] CenterWzneposPSECSXSXMF1098-72-57 19:24:00 Test Item Value Reference Range Interpretation Comments Eosinophils # (test code 0.2 See_Comment [A utomated message] The = Eosinophils #) system whic h generated this result tra nsmitted reference range : <=0.5. The reference r ozzy was not used to int erpret this result as normal/abnormal . [facility] CenterUlkxhjoZWMQONSFRN5199-02-08 19:24:00 Test Item Value Reference Range Interpretation Comments Hypochrom (test code = 1+ (08/24/14 1:24 PM) Hypochrom) [facility] Cent[id number] 19:24:00 Test Item Value Reference Range Interpretation Comments Lymphocytes # (test code = Lymphocytes 2.8 1.0-5.5 #) [facility] CenterNbecwkaKFZXPJQROI0304-16-91 19:24:00 Test Item Value Reference Range Interpretation Comments Segs-Bands # (test code = Segs-Bands #) 8.1 1.5-8.1 [facility] CenterNxywxttMPAJVZQFYC0460-71-89 19:24:00 Test Item Value Reference Range Interpretation Comments Monocytes # (test code 0.2 See_Comment [Aut omated message] The = Monocytes #) system which generated this result tra nsmitted reference range : <=0.8. The reference r ozzy was not used to int erpret this result as normal/abnormal . [facility] CenterRkbyodvSTXVDRJXLU5555-50-70 19:24:00 Test Item Value Reference Range Interpretation Comments Lymphocytes (test code = Lymphocytes) 24.5 20.0-40.0 [facility] CenterBaqejqvFOBRDZPSFE8826-54-00 19:24:00 Test Item Value Reference Range Interpretation Comments Segs (test code = Segs) 71.8 45.0-75.0 [facility] CenterDvjushqPVYLTNLWTZ5784-05-76 19:24:00 Test Item Value Reference Range Interpretation Comments Basophils (test code = 0.6 See_Comment [Aut omated message] The Basophils) system which ge nerated this result tra nsmitted reference range : <=1.0. The reference r ozzy was not used to int erpret this result as normal/abnormal . [facility] CenterNqaeccpWYAJEKTLPK0058-18-14 19:24:00 Test Item Value Reference Range Interpretation Comments Monocytes (test code = Monocytes) 1.5 2.0-12.0 [facility] CenterAzhisfsBFZUZHDDJR1787-15-08 19:24:00 Test Item Value Reference Range Interpretation Comments Eosinophils (test code = 1.6 See_Comment [A utomated message] The Eosinophils) system which ge nerated this result tra nsmitted reference range : <=4.0. The reference r ozzy was not used to int erpret this result as normal/abnormal . [facility] CenterBciqkepYEUQIROMLU5862-64-03 19:24:00 Test Item Value Reference Range Interpretation Comments Plt Morph (test code = Normal (08/24/14 1:24 Plt Morph) PM) [facility] AND [id number] 19:24:00 Test Item Value Reference Range Interpretation Comments UA Sq Epi (test code = UA Sq Occasional /LPF Epi) [facility] AND [id number] 19:24:00 Test Item Value Reference Range Interpretation Comments UA Bacteria (test code = UA Occasional /HPF Bacteria) [facility] AND [id number] 19:24:00 Test Item Value Reference Range Interpretation Comments UA Mucus (test code = None Seen (08/24/14 UA Mucus) 1:24 PM) [facility] AND [id number] 19:24:00 Test Item Value Reference Range Interpretation Comments UA WBC (test code = UA WBC) 0-2 /HPF [facility] AND [id number] 19:24:00 Test Item Value Reference Range Interpretation Comments UA RBC (test code = 0-2 /HPF See_Comment [Automa gaye message] The UA RBC) system which ge nerated this result tra nsmitted reference range : <=2. The reference range was not used to interpr et this result as satish l/abnormal. [facility] AND [id number] 19:24:00 Test Item Value Reference Range Interpretation Comments UA Leuk Est (test Moderate *ABN*(08/24/14 code = UA Leuk Est) 1:24 PM) [facility] AND [id number] 19:24:00 Test Item Value Reference Range Interpretation Comments UA Nitrite (test code Negative (08/24/14 1:24 = UA Nitrite) PM) [facility] AND [id number] 19:24:00 Test Item Value Reference Range Interpretation Comments UA Urobilinogen (test code = UA 0.2 0.1-1.0 Urobilinogen) [facility] AND [id number] 19:24:00 Test Item Value Reference Range Interpretation Comments UA Ketones (test code Negative *NA*(08/24/14 = UA Ketones) 1:24 PM) [facility] AND [id number] 19:24:00 Test Item Value Reference Range Interpretation Comments UA Blood (test code = Negative (08/24/14 1:24 UA Blood) PM) [facility] AND [id number] 19:24:00 Test Item Value Reference Range Interpretation Comments UA Bili (test code = Negative *NA*(08/24/14 UA Bili) 1:24 PM) [facility] AND [id number] 19:24:00 Test Item Value Reference Range Interpretation Comments UA Color (test code = Yellow *NA*(08/24/14 UA Color) 1:24 PM) [facility] AND [id number] 19:24:00 Test Item Value Reference Range Interpretation Comments UA Glucose (test code Negative (08/24/14 1:24 = UA Glucose) PM) [facility] AND [id number] 19:24:00 Test Item Value Reference Range Interpretation Comments UA Protein (test code Negative (08/24/14 1:24 = UA Protein) PM) [facility] AND [id number] 19:24:00 Test Item Value Reference Range Interpretation Comments UA pH (test code = UA pH) 6.0 1 5.0-8.0 [facility] AND [id number] 19:24:00 Test Item Value Reference Range Interpretation Comments UA Spec Grav (test code *NA*(08/24/14 1:24 PM) = UA Spec Grav) [facility] AND [id number] 19:24:00 Test Item Value Reference Range Interpretation Comments UA Turbidity (test code = Clear (08/24/14 1:24 UA Turbidity) PM) [facility]2015-01-12 19:24:00 Test Item Value Reference Range Interpretation Comments Lipase Lvl (test code = Lipase Lvl) 104 73-393 [facility]2015-01-12 19:24:00 Test Item Value Reference Range Interpretation Comments eGFR (test code = eGFR) 109 [facility]2015-01-12 19:24:00 Test Item Value Reference Range Interpretation Comments Bili Total (test code = Bili Total) 0.6 0.2-1.3 [facility]2015-01-12 19:24:00 Test Item Value Reference Range Interpretation Comments Alk Phos (test code = Alk Phos) 72 39-136 [facility]2015-01-12 19:24:00 Test Item Value Reference Range Interpretation Comments Calcium Lvl (test code = Calcium Lvl) 8.8 8.5-10.5 [facility]2015-01-12 19:24:00 Test Item Value Reference Range Interpretation Comments CO2 (test code = CO2) 28 24-32 [facility]2015-01-12 19:24:00 Test Item Value Reference Range Interpretation Comments Chloride Lvl (test code = Chloride Lvl) 107 95-109 [facility]2015-01-12 19:24:00 Test Item Value Reference Range Interpretation Comments Potassium Lvl (test code = Potassium 3.9 3.5-5.1 Lvl) [facility]2015-01-12 19:24:00 Test Item Value Reference Range Interpretation Comments Glucose Lvl (test code = Glucose Lvl) 90 70-99 [facility]2015-01-12 19:24:00 Test Item Value Reference Range Interpretation Comments Sodium Lvl (test code = Sodium Lvl) 138 135-145 [facility]2015-01-12 19:24:00 Test Item Value Reference Range Interpretation Comments BUN (test code = BUN) 7 7-22 [facility]2015-01-12 19:24:00 Test Item Value Reference Range Interpretation Comments Creatinine Lvl (test code = Creatinine 0.7 0.5-1.4 Lvl) [facility]2015-01-12 19:24:00 Test Item Value Reference Range Interpretation Comments ALT (test code = ALT) 23 See_Comment [Auto mated message] The system which ge nerated this result transmit gaye reference range : <=65. The reference range was not used to interpr et this result as satish l/abnormal. [facility]2015-01-12 19:24:00 Test Item Value Reference Range Interpretation Comments AST (test code = AST) 12 See_Comment [Auto mated message] The system which ge nerated this result transmit gaye reference range : <=37. The reference range was not used to interpr et this result as satish l/abnormal. [facility]2015-01-12 19:24:00 Test Item Value Reference Range Interpretation Comments Albumin Lvl (test code = Albumin Lvl) 3.8 3.5-5.0 [facility]2015-01-12 19:24:00 Test Item Value Reference Range Interpretation Comments Total Protein (test code = Total 8.0 6.4-8.4 Protein) [facility]2015-01-12 19:24:00 Test Item Value Reference Range Interpretation Comments A/G Ratio (test code = A/G Ratio) 0.9 0.7-1.6 [place] [id number] 19:24:00 Test Item Value Reference Range Interpretation Comments AGAP (test code = AGAP) 6.9 10.0-20.0 [facility]2015-01-12 19:24:00 Test Item Value Reference Range Interpretation Comments B/C Ratio (test code = B/C Ratio) 10 6-25 [facility] [id number] 19:24:00 Test Item Value Reference Range Interpretation Comments Globulin (test code = Globulin) 4.2 2.0-4.0 [facility]VxbsorfOMOXGCVZMGDMH6976-50-33 19:24:00 Test Item Value Reference Range Interpretation Comments S Preg (test code = S Negative *NA*(08/24/14 Preg) 1:24 PM) [facility] CenterAspsfwtMDJBBGLHVE2163-83-20 19:24:00 Test Item Value Reference Range Interpretation Comments WBC (test code = WBC) 11.3 3.7-10.4 [facility] CenterWswfgzfKFGWLEZAAC6028-70-45 19:24:00 Test Item Value Reference Range Interpretation Comments RBC (test code = RBC) 4.75 4.20-5.40 [facility] CenterFyjcrheTJXJOKFONW1707-71-24 19:24:00 Test Item Value Reference Range Interpretation Comments Platelet (test code = Platelet) 402 133-450 [facility] CenterOvbwoftNLLAYWWFTA2260-42-62 19:24:00 Test Item Value Reference Range Interpretation Comments MCV (test code = MCV) 89.9 80.0-98.0 [facility] CenterIsodzetMWNJQOGJWV5116-26-54 19:24:00 Test Item Value Reference Range Interpretation Comments Hct (test code = Hct) 42.7 36.0-48.0 [facility] CenterHdnidwzTIEZUQITNF6817-11-15 19:24:00 Test Item Value Reference Range Interpretation Comments Hgb (test code = Hgb) 14.5 12.0-16.0 [facility] CenterNowazujIIXTPTSRBD2838-82-15 19:24:00 Test Item Value Reference Range Interpretation Comments RDW (test code = RDW) 13.5 11.5-14.5 [facility] CenterBpuckehUDUAUGMESC9600-30-03 19:24:00 Test Item Value Reference Range Interpretation Comments MCHC (test code = MCHC) 34.0 32.0-36.0 [facility] CenterRmbzxdxYURQZGSWUC3260-68-23 19:24:00 Test Item Value Reference Range Interpretation Comments MCH (test code = MCH) 30.6 pg 27.0-31.0 [facility] CenterPwohekzBBMHIMOAVD5089-51-34 19:24:00 Test Item Value Reference Range Interpretation Comments MPV (test code = MPV) 8.1 7.4-10.4 [facility] CenterWheklloRJEVPNVNCQ2972-94-77 19:24:00 Test Item Value Reference Range Interpretation Comments Stomatocyte (test code = Stomatocyte) Slight [facility] CenterHaadpdbQQIASGMMAG3346-07-05 19:24:00 Test Item Value Reference Range Interpretation Comments Basophils # (test code 0.1 See_Comment [Aut omated message] The = Basophils #) system which generated this result tra nsmitted reference range : <=0.2. The reference r ozzy was not used to int erpret this result as normal/abnormal . [facility] CenterTdrrpapZRFJJVMSFV8096-29-38 19:24:00 Test Item Value Reference Range Interpretation Comments Eosinophils # (test code 0.2 See_Comment [A utomated message] The = Eosinophils #) system whic h generated this result tra nsmitted reference range : <=0.5. The reference r ozzy was not used to int erpret this result as normal/abnormal . [facility] CenterNukrfmkIPMTXAYZCY4308-01-53 19:24:00 Test Item Value Reference Range Interpretation Comments Hypochrom (test code = 1+ (08/24/14 1:24 PM) Hypochrom) [facility] CenterTfrjciwSFLNXUXAUT1730-11-08 19:24:00 Test Item Value Reference Range Interpretation Comments Lymphocytes # (test code = Lymphocytes 2.8 1.0-5.5 #) [id number] 19:24:00 Test Item Value Reference Range Interpretation Comments Segs-Bands # (test code = Segs-Bands #) 8.1 1.5-8.1 [facility] [id number] 19:24:00 Test Item Value Reference Range Interpretation Comments Monocytes # (test code 0.2 See_Comment [Aut omated message] The = Monocytes #) system which generated this result tra nsmitted reference range : <=0.8. The reference r ozzy was not used to int erpret this result as normal/abnormal . [facility] C[id number] 19:24:00 Test Item Value Reference Range Interpretation Comments Lymphocytes (test code = Lymphocytes) 24.5 20.0-40.0 [facility] [id number] 19:24:00 Test Item Value Reference Range Interpretation Comments Segs (test code = Segs) 71.8 45.0-75.0 [facility] [id number] 19:24:00 Test Item Value Reference Range Interpretation Comments Basophils (test code = 0.6 See_Comment [Aut omated message] The Basophils) system which ge nerated this result tra nsmitted reference range : <=1.0. The reference r ozzy was not used to int erpret this result as normal/abnormal . [facility] [id number] 19:24:00 Test Item Value Reference Range Interpretation Comments Monocytes (test code = Monocytes) 1.5 2.0-12.0 [facility] C[id number] 19:24:00 Test Item Value Reference Range Interpretation Comments Eosinophils (test code = 1.6 See_Comment [A utomated message] The Eosinophils) system which ge nerated this result tra nsmitted reference range : <=4.0. The reference r ozzy was not used to int erpret this result as normal/abnormal . [facility] CenterYuvqtmlHQBPFZJZLP2985-56-25 19:24:00 Test Item Value Reference Range Interpretation Comments Plt Morph (test code = Normal (08/24/14 1:24 Plt Morph) PM) [facility] AND [id number] 19:24:00 Test Item Value Reference Range Interpretation Comments UA Sq Epi (test code = UA Sq Occasional /LPF Epi) [facility] AND [id number] 19:24:00 Test Item Value Reference Range Interpretation Comments UA Bacteria (test code = UA Occasional /HPF Bacteria) [facility] AND [id number] 19:24:00 Test Item Value Reference Range Interpretation Comments UA Mucus (test code = None Seen (08/24/14 UA Mucus) 1:24 PM) [facility] AND [id number] 19:24:00 Test Item Value Reference Range Interpretation Comments UA WBC (test code = UA WBC) 0-2 /HPF [facility] AND [id number] 19:24:00 Test Item Value Reference Range Interpretation Comments UA RBC (test code = 0-2 /HPF See_Comment [Automa gaye message] The UA RBC) system which ge nerated this result tra nsmitted reference range : <=2. The reference range was not used to interpr et this result as satish l/abnormal. [facility] AND [id number] 19:24:00 Test Item Value Reference Range Interpretation Comments UA Leuk Est (test Moderate *ABN*(08/24/14 code = UA Leuk Est) 1:24 PM) [facility] AND [id number] 19:24:00 Test Item Value Reference Range Interpretation Comments UA Nitrite (test code Negative (08/24/14 1:24 = UA Nitrite) PM) [facility] AND [id number] 19:24:00 Test Item Value Reference Range Interpretation Comments UA Urobilinogen (test code = UA 0.2 0.1-1.0 Urobilinogen) [facility] [id number] 19:24:00 Test Item Value Reference Range Interpretation Comments UA Ketones (test code Negative *NA*(08/24/14 = UA Ketones) 1:24 PM) [facility] AND [id number] 19:24:00 Test Item Value Reference Range Interpretation Comments UA Blood (test code = Negative (08/24/14 1:24 UA Blood) PM) [facility] AND [id number] 19:24:00 Test Item Value Reference Range Interpretation Comments UA Bili (test code = Negative *NA*(08/24/14 UA Bili) 1:24 PM) [facility] AND [id number] 19:24:00 Test Item Value Reference Range Interpretation Comments UA Color (test code = Yellow *NA*(08/24/14 UA Color) 1:24 PM) [facility] AND [id number] 19:24:00 Test Item Value Reference Range Interpretation Comments UA Glucose (test code Negative (08/24/14 1:24 = UA Glucose) PM) [facility] AND [id number] 19:24:00 Test Item Value Reference Range Interpretation Comments UA Protein (test code Negative (08/24/14 1:24 = UA Protein) PM) [facility] AND [id number] 19:24:00 Test Item Value Reference Range Interpretation Comments UA pH (test code = UA pH) 6.0 1 5.0-8.0 [facility] AND [id number] 19:24:00 Test Item Value Reference Range Interpretation Comments UA Spec Grav (test code *NA*(08/24/14 1:24 PM) = UA Spec Grav) [facility] AND [id number] 19:24:00 Test Item Value Reference Range Interpretation Comments UA Turbidity (test code = Clear (08/24/14 1:24 UA Turbidity) PM) [facility]2015-01-12 19:24:00 Test Item Value Reference Range Interpretation Comments Lipase Lvl (test code = Lipase Lvl) 104 73-393 [facility]2015-01-12 19:24:00 Test Item Value Reference Range Interpretation Comments eGFR (test code = eGFR) 109 [facility]2015-01-12 19:24:00 Test Item Value Reference Range Interpretation Comments Bili Total (test code = Bili Total) 0.6 0.2-1.3 [facility]2015-01-12 19:24:00 Test Item Value Reference Range Interpretation Comments Alk Phos (test code = Alk Phos) 72 39-136 [facility]2015-01-12 19:24:00 Test Item Value Reference Range Interpretation Comments Calcium Lvl (test code = Calcium Lvl) 8.8 8.5-10.5 [facility]2015-01-12 19:24:00 Test Item Value Reference Range Interpretation Comments CO2 (test code = CO2) 28 24-32 [facility]2015-01-12 19:24:00 Test Item Value Reference Range Interpretation Comments Chloride Lvl (test code = Chloride Lvl) 107 95-109 [facility]2015-01-12 19:24:00 Test Item Value Reference Range Interpretation Comments Potassium Lvl (test code = Potassium 3.9 3.5-5.1 Lvl) [facility]2015-01-12 19:24:00 Test Item Value Reference Range Interpretation Comments Glucose Lvl (test code = Glucose Lvl) 90 70-99 [facility]2015-01-12 19:24:00 Test Item Value Reference Range Interpretation Comments Sodium Lvl (test code = Sodium Lvl) 138 135-145 [facility]2015-01-12 19:24:00 Test Item Value Reference Range Interpretation Comments BUN (test code = BUN) 7 7-22 [facility]2015-01-12 19:24:00 Test Item Value Reference Range Interpretation Comments Creatinine Lvl (test code = Creatinine 0.7 0.5-1.4 Lvl) [facility]2015-01-12 19:24:00 Test Item Value Reference Range Interpretation Comments ALT (test code = ALT) 23 See_Comment [Auto mated message] The system which ge nerated this result transmit gaye reference range : <=65. The reference range was not used to interpr et this result as satish l/abnormal. [facility]2015-01-12 19:24:00 Test Item Value Reference Range Interpretation Comments AST (test code = AST) 12 See_Comment [Auto mated message] The system which ge nerated this result transmit gaye reference range : <=37. The reference range was not used to interpr et this result as satish l/abnormal. [facility]2015-01-12 19:24:00 Test Item Value Reference Range Interpretation Comments Albumin Lvl (test code = Albumin Lvl) 3.8 3.5-5.0 [facility]2015-01-12 19:24:00 Test Item Value Reference Range Interpretation Comments Total Protein (test code = Total 8.0 6.4-8.4 Protein) [facility]2015-01-12 19:24:00 Test Item Value Reference Range Interpretation Comments A/G Ratio (test code = A/G Ratio) 0.9 0.7-1.6 [facility]2015-01-12 19:24:00 Test Item Value Reference Range Interpretation Comments AGAP (test code = AGAP) 6.9 10.0-20.0 [facility]2015-01-12 19:24:00 Test Item Value Reference Range Interpretation Comments B/C Ratio (test code = B/C Ratio) 10 6-25 [facility]2015-01-12 19:24:00 Test Item Value Reference Range Interpretation Comments Globulin (test code = Globulin) 4.2 2.0-4.0 [id number] 19:24:00 Test Item Value Reference Range Interpretation Comments S Preg (test code = S Negative *NA*(08/24/14 Preg) 1:24 PM) [place] [id number] 19:24:00 Test Item Value Reference Range Interpretation Comments WBC (test code = WBC) 11.3 3.7-10.4 [facility] [id number] 19:24:00 Test Item Value Reference Range Interpretation Comments RBC (test code = RBC) 4.75 4.20-5.40 [facility] Cent[id number] 19:24:00 Test Item Value Reference Range Interpretation Comments Platelet (test code = Platelet) 402 133-450 [facility] CenterXjipeetASGFZAROUJ4038-60-85 19:24:00 Test Item Value Reference Range Interpretation Comments MCV (test code = MCV) 89.9 80.0-98.0 [facility] [id number] 19:24:00 Test Item Value Reference Range Interpretation Comments Hct (test code = Hct) 42.7 36.0-48.0 [facility] CenterGkrajsdVLZMDBLMQQ2122-06-22 19:24:00 Test Item Value Reference Range Interpretation Comments Hgb (test code = Hgb) 14.5 12.0-16.0 [facility] CenterKvresasABLHKXWYDB1902-16-41 19:24:00 Test Item Value Reference Range Interpretation Comments RDW (test code = RDW) 13.5 11.5-14.5 [facility] [id number] 19:24:00 Test Item Value Reference Range Interpretation Comments MCHC (test code = MCHC) 34.0 32.0-36.0 [facility] CenterHcsfzmwKTDEESLJQG8492-97-01 19:24:00 Test Item Value Reference Range Interpretation Comments MCH (test code = MCH) 30.6 pg 27.0-31.0 [facility] CenterTathopzACHGTUQIRL1605-99-44 19:24:00 Test Item Value Reference Range Interpretation Comments MPV (test code = MPV) 8.1 7.4-10.4 [facility] [id number] 19:24:00 Test Item Value Reference Range Interpretation Comments Stomatocyte (test code = Stomatocyte) Slight [facility] C[id number] 19:24:00 Test Item Value Reference Range Interpretation Comments Basophils # (test code 0.1 See_Comment [Aut omated message] The = Basophils #) system which generated this result tra nsmitted reference range : <=0.2. The reference r ozzy was not used to int erpret this result as normal/abnormal . [facility] CenterHkbgfytRGMXAFOVDF1788-86-66 19:24:00 Test Item Value Reference Range Interpretation Comments Eosinophils # (test code 0.2 See_Comment [A utomated message] The = Eosinophils #) system whic h generated this result tra nsmitted reference range : <=0.5. The reference r ozzy was not used to int erpret this result as normal/abnormal . [facility] CenterXrmfecnJIZXCTIDRH8552-17-30 19:24:00 Test Item Value Reference Range Interpretation Comments Hypochrom (test code = 1+ (08/24/14 1:24 PM) Hypochrom) [facility] Cent[id number] 19:24:00 Test Item Value Reference Range Interpretation Comments Lymphocytes # (test code = Lymphocytes 2.8 1.0-5.5 #) [facility] [id number] 19:24:00 Test Item Value Reference Range Interpretation Comments Segs-Bands # (test code = Segs-Bands #) 8.1 1.5-8.1 [facility] [id number] 19:24:00 Test Item Value Reference Range Interpretation Comments Monocytes # (test code 0.2 See_Comment [Aut omated message] The = Monocytes #) system which generated this result tra nsmitted reference range : <=0.8. The reference r ozzy was not used to int erpret this result as normal/abnormal . [facility] CenterZrtzaffLTYEJGPXLK5336-02-42 19:24:00 Test Item Value Reference Range Interpretation Comments Lymphocytes (test code = Lymphocytes) 24.5 20.0-40.0 [facility] Cent[id number] 19:24:00 Test Item Value Reference Range Interpretation Comments Segs (test code = Segs) 71.8 45.0-75.0 [facility] CenterUtquhuaAVWFFSAVBD0598-67-48 19:24:00 Test Item Value Reference Range Interpretation Comments Basophils (test code = 0.6 See_Comment [Aut omated message] The Basophils) system which ge nerated this result tra nsmitted reference range : <=1.0. The reference r ozzy was not used to int erpret this result as normal/abnormal . [facility] CenterJxyeretQAOKRNSBYP1621-31-53 19:24:00 Test Item Value Reference Range Interpretation Comments Monocytes (test code = Monocytes) 1.5 2.0-12.0 [facility] [id number] 19:24:00 Test Item Value Reference Range Interpretation Comments Eosinophils (test code = 1.6 See_Comment [A utomated message] The Eosinophils) system which ge nerated this result tra nsmitted reference range : <=4.0. The reference r ozzy was not used to int erpret this result as normal/abnormal . [facility] CenterKucaxgyOARFYDROYO5571-15-72 19:24:00 Test Item Value Reference Range Interpretation Comments Plt Morph (test code = Normal (08/24/14 1:24 Plt Morph) PM) [facility] AND [id number] 19:24:00 Test Item Value Reference Range Interpretation Comments UA Sq Epi (test code = UA Sq Occasional /LPF Epi) [facility] AND [id number] 19:24:00 Test Item Value Reference Range Interpretation Comments UA Bacteria (test code = UA Occasional /HPF Bacteria) [facility] AND [id number] 19:24:00 Test Item Value Reference Range Interpretation Comments UA Mucus (test code = None Seen (08/24/14 UA Mucus) 1:24 PM) [facility] AND [id number] 19:24:00 Test Item Value Reference Range Interpretation Comments UA WBC (test code = UA WBC) 0-2 /HPF [facility] AND [id number] 19:24:00 Test Item Value Reference Range Interpretation Comments UA RBC (test code = 0-2 /HPF See_Comment [Automa gaye message] The UA RBC) system which ge nerated this result tra nsmitted reference range : <=2. The reference range was not used to interpr et this result as satish l/abnormal. [facility] AND [id number] 19:24:00 Test Item Value Reference Range Interpretation Comments UA Leuk Est (test Moderate *ABN*(08/24/14 code = UA Leuk Est) 1:24 PM) [facility] AND [id number] 19:24:00 Test Item Value Reference Range Interpretation Comments UA Nitrite (test code Negative (08/24/14 1:24 = UA Nitrite) PM) [facility] AND [id number] 19:24:00 Test Item Value Reference Range Interpretation Comments UA Urobilinogen (test code = UA 0.2 0.1-1.0 Urobilinogen) [facility] AND [id number] 19:24:00 Test Item Value Reference Range Interpretation Comments UA Ketones (test code Negative *NA*(08/24/14 = UA Ketones) 1:24 PM) [facility] AND [id number] 19:24:00 Test Item Value Reference Range Interpretation Comments UA Blood (test code = Negative (08/24/14 1:24 UA Blood) PM) [facility] AND [id number] 19:24:00 Test Item Value Reference Range Interpretation Comments UA Bili (test code = Negative *NA*(08/24/14 UA Bili) 1:24 PM) [facility] AND [id number] 19:24:00 Test Item Value Reference Range Interpretation Comments UA Color (test code = Yellow *NA*(08/24/14 UA Color) 1:24 PM) [facility] AND [id number] 19:24:00 Test Item Value Reference Range Interpretation Comments UA Glucose (test code Negative (08/24/14 1:24 = UA Glucose) PM) [facility] AND [id number] 19:24:00 Test Item Value Reference Range Interpretation Comments UA Protein (test code Negative (08/24/14 1:24 = UA Protein) PM) [facility] AND [id number] 19:24:00 Test Item Value Reference Range Interpretation Comments UA pH (test code = UA pH) 6.0 1 5.0-8.0 [facility] AND [id number] 19:24:00 Test Item Value Reference Range Interpretation Comments UA Spec Grav (test code *NA*(08/24/14 1:24 PM) = UA Spec Grav) [facility] AND [id number] 19:24:00 Test Item Value Reference Range Interpretation Comments UA Turbidity (test code = Clear (08/24/14 1:24 UA Turbidity) PM) [facility]
[2022-10-10] MEDS ORDERED: HYDROCODONE/APAP 10/325 TAB ONE (18:50)
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
[2022-10-10 19:37] LABS: Absolute Lymphocytes (CBC) 3.5 K/uL (0.7-4.9); Hematocrit 44.8 % (36.0-45.0); Lymphocytes % 37.5 % (15.3-44.8); MCV 89.5 fL (80-100); MPV 7.7 fL (7.6-11.3); RBC Red Blood Cell Count 5.01 M/uL (3.86-4.86)
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
[2022-10-10] MEDS ORDERED: MORPHINE 4 MG/ML SYR ONE (20:24)
[2022-10-10] MEDS ORDERED: DIAZEPAM 10 MG/2 ML INJ SYRINGE ONE (20:25)
[2022-10-10] MEDS ORDERED: ONDANSETRON 4 MG/2 ML VIAL ONE (21:14)
[2022-10-10 22:14] VITALS: BP 115/67; TEMP 98.9; O2SAT 99
== END 2022-10-10 21:29 | disposition home or self-care (01) ==
LOC: ER 18:02
DX: S09.90XA Unspecified injury of head, initial encounter (principal); S16.1XXA Strain of muscle, fascia and tendon at neck level, initial encounter; S86.812A Strain of other muscle(s) and tendon(s) at lower leg level, left leg, initial encounter; S90.112A Contusion of left great toe without damage to nail, initial encounter; S80.02XA Contusion of left knee, initial encounter; S80.01XA Contusion of right knee, initial encounter; I48.91 Unspecified atrial fibrillation; Z87.820 Personal history of traumatic brain injury; Z88.3 Allergy status to other anti-infective agents; Z88.6 Allergy status to analgesic agent; Z88.5 Allergy status to narcotic agent; Z88.8 Allergy status to other drugs, medicaments and biological substances; Z91.013 Allergy to seafood; Z91.040 Latex allergy status; Z91.048 Other nonmedicinal substance allergy status
CPT/HCPCS: 85025; 36415; 70450; 71250; 72125; 73130; 73630; 73562; 73590; 96375; 96374; 99284; J3360; J2405

== ENCOUNTER 2022-10-11 14:21 | Emergency (ER) | payer OTHER ==
--- OUTSIDE RECORDS SUMMARY | 2022-10-11 14:42 | XMS REPORT | Continuity of Care Document ---
:1975 Author Organization [facility] t Address [address] [place] [address] Care Team Providers Name Role Phone Pcp, [...] Clinician Unavailable Bladimir Brumfield MD Attending Clinician [phone] Obdulio Ragland MD Attending Clinician MD OBDULIO RAGLAND Attending Clinician Unavailable Inez García MD Attending Clinician [phone] JUDE MATHEWS M.D. Attending Clinician Unavailable Woo Greenberg DO Attending Clinician [phone] [place] MD Attending Clinician Clarice Brannon MD Attending Clinician Lj Thakkar Attending Clinician MD LJ THAKKAR Attending Clinician Unavailable Jose Elias Torres MD Attending Clinician Lydia Oden MD Attending Clinician [phone] Maribel Dickey MD Attending Clinician MD [...] Number Effective Date Expiration Date Brannon richards [facility] [id number] 2020 STAR 00:00:00 CDC REVIEW [id number] 2020 00:00:00 Problems Condition Condition Condition Status [...] VAGINAL Diagnosis Active 2016-08-10 Memoria BLEEDING BLEEDING 7- 09:01:00 l Active 23:00: [place] 02/12/2016 00 [facility] D25.9 - D25.9 - Diagnosis Active 2014-082015-06-08 Memoria "LEIOMYOMA "LEIOMYOMA 15:22:00 l OF UTERUS, OF UTERUS, 00:01: He rmann UNSPECIFI" UNSPECIFI" 00 Active 06/08/2015 OPID [place] VAGINAL VAGINAL Diagnosis Active 2014-12-21 Memoria BLEEDING- BLEEDING- 09-03 13:01:00 l 6 WKS PG 6 WKS PG 00:00: Jordy n Active 00 09/03/2014 [facility] CONSTIPATI CONSTIPAT Diagnosis Active 2014-12-14 Memoria ON, NAUSEA ION, - 09:23:00 l NAUSEA 00:00: [place] Active 00 08/24/2014 [facility] Anemia Anemia Problem Resolve 2016-02-16 Me moria (disorder) (disorder) d 00:25:42 l Resolved [place] Problem 02/16/2016 [facility] Migraine Migraine Problem Resolve 2016-02-16 Memoria (disorder) (disorder) d 00:25:42 l Resolved [place] Problem 02/16/2016 [facility] Mitral Mitral Problem Resolve 2016-02-16 Mem oria valve valve d 00:25:42 l prolapse prolapse Jordy n (disorder) (disorder) Resolved Problem 02/16/2016 [facility] Anxiety Anxiety Problem Active 2016-02-16 Me moria (finding) (finding) 00:25:42 l Active [place] Problem 02/16/2016 [facility] Bipolar Bipolar Problem Active 2016-02-16 Me moria (qualifier (qualifier 00:25:42 l value) value) [place] Active Problem 02/16/2016 [facility] Congestive Congestiv Problem Active 2016-02-16 Memoria heart e heart 00:25:42 l failure failure [place] (disorder) (disorder) Active Problem 02/16/2016 [facility] Depressive Depressiv Problem Active 2016-02-16 Memoria disorder e disorder 00:25:42 l (disorder) (disorder) He [place] Active Problem 02/16/2016 [facility] Gastroesop Gastroeso Problem Active 2016-02-16 Memoria hageal phageal 00:25:42 l reflux reflux [place] disease disease (disorder) (disorder) Active Problem 02/16/2016 [facility] Heart Heart Problem Active 2016-02-16 Memor ia failure failure 00:25:42 l (disorder) (disorder) He rmann Active Problem 02/16/2016 [facility] Hypertensi Hypertens Problem Active 2016-02-16 Memoria ve kellee 00:25:42 l disorder, disorder, Herm alem systemic systemic arterial arterial (disorder) (disorder) Active Problem 02/16/2016 [facility] Multiple Multiple Problem Active 2016-02-16 Memoria sclerosis sclerosis 00:25:42 l (disorder) (disorder) He rmann Active Problem 02/16/2016 [facility] Osteoarthr Problem Active 2016-02-16 M emoria itis Osteoarthr 00:25:42 l (disorder) itis Jordy n (disorder) Active Problem 02/16/2016 [facility] Drug Drug Problem Active 2016-02-16 Memor ia overdose overdose 00:25:42 l (disorder) (disorder) He rmann Active Problem 02/16/2016 [facility] Rheumatoid Rheumatoi Problem Active 2016-02-16 Memoria arthritis d 00:25:42 l (disorder) arthritis Her sarkar (disorder) Active Problem 02/16/2016 [facility] 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 00:25:42 l (disorder) (disorder) He rmann Active Problem 02/16/2016 [facility] Uterine Uterine Problem Active 2016-02-16 Me moria leiomyoma leiomyoma 00:25:42 l (disorder) (disorder) He rmann Active Problem 02/16/2016 [facility] Urinary Urinary Problem Active 2016-02-16 Me moria tract tract 00:25:42 l infectious infectious He rmann disease disease (disorder) (disorder) Active Problem 02/16/2016 [facility] Complex Complex Disease Active Methodi endometria [...] breath) an s on on exertion exertion No known No known Disease Unive rs active active ity of problems problems [facility] History of Past Illness Condition Condition Condition Status Onset Resolution Last Treating Co mments Source Name Details Category Date Date Treatment Clinician Date Discharge Problem 2016-02-16 2016-02-16 Memoria Diagnosis: Discharge 02-12 00:25:42 00:25:42 l Anemia, Diagnosis: 05:00: Kristina nn unspecifie Anemia, 00 d unspecifie d 02/13/2016 02/16/2016 [facility] Discharge Discharge Problem 2016-02-16 2016-02-16 Memoria Diagnosis: Diagnosis: 02-12 00:25:42 00:25:42 l Abnormal Abnormal 05:00: Jordy n uterine uterine 00 and and vaginal vaginal bleeding, bleeding, unspecifie unspecifie d d 02/13/2016 6 [facility] Discharge Discharge Problem 2014-09-06 2014-09-06 Memoria Diagnosis: Diagnosis: 09-04 16:01:45 16:01:45 l Vaginal Vaginal 06:00: [place] bleeding bleeding 09/04/2014 09/06/2014 [facility] Discharge Discharge Problem 2014-09-06 2014-09-06 Memoria Diagnosis: Diagnosis: 09-04 16:01:45 16:01:45 l Dysmenorrh Dysmenorrh 06:00: He rmann ea ea 09/04/2014 09/06/2014 [facility] Discharge Discharge Problem 2014-08-26 2014-08-26 Memoria Diagnosis: Diagnosis: 1 17:22:44 17:22:44 l Nausea Nausea 06:00: [place] 08/24/201408/26/2014 [facility] Discharge Discharge Problem 2014-08-26 2014-08-26 Memoria Diagnosis: Diagnosis: 1 17:22:44 17:22:44 l Constipati Constipati 06:00: He rmann on on 08/24/2014 08/26/2014 [facility] Allergies, Adverse Reactions, Alerts Allergy Allergy Status Severity Reaction(s) Onset Inactive Treating Comm ents Source Name Type Date Date Clinician Tramadol Propensi Active Other - See 2023-0 migraine s Univers ty to comments 08-14 ity of adverse 00:00: [place] reaction 00 Medical s Branch Vancomyc Propensi Active Rash 3-0 Univer s in ty to 08-14 ity of adverse 00:00: [place] reaction 00 Medical s Branch IODINE DRUG Active Hives 3-0 Univers INGREDI 08-14 ity of 00:00: [place] 00 Medical Branch LATEX DRUG Active Rash 3-0 Univers INGREDI 08-14 ity of 00:00: [place] 00 Medical Branch LEVOFLOX DRUG Active Swelling 3-0 Univer s ACIN INGREDI 08-14 ity of 00:00: [place] 00 Medical Branch PROMETHA DRUG Active Hives 2022-0 Univers ZINE INGREDI 08-14 ity of 00:00: [place] 00 Medical Branch TRAMADOL DRUG Active Other-Cmnt 2022-0 Univ ers INGREDI 08-14 ity of 00:00: [place] 00 Medical Branch VANCOMYC DRUG Active Hives 3-0 Univers IN INGREDI 08-14 ity of 00:00: [place] 00 Medical Branch Iodine Propensi Active Hives 3-0 Univers ty to 08-14 ity of adverse 00:00: [place] reaction 00 Medical s Branch Latex Propensi Active Rash 3-0 Univers ty to 08-14 ity of adverse 00:00: [place] reaction 00 Medical s Branch Levoflox Propensi Active Swelling 2022-0 Univ ers acin ty to 08-14 ity of adverse 00:00: [place] reaction 00 Medical s Branch Prometha Propensi Active Hives 3-0 Univer s zine ty to 08-14 ity of adverse 00:00: [place] reaction 00 Medical s Branch Povidone Allergy Active 2020-0 [facility] Iodine to 13 Health substanc 00:00: e 00 Latex Allergy Active 2020-0 [facility] to 9-13 Health substanc 00:00: e 00 Nsaids Propensi Active 2020-0 [facility] ty to 13 Health adverse 00:00: reaction 00 s Citalopr Propensi Active Itching 2020-0 Burning [facility] am ty to 2-04 skinBurni Health adverse 00:00: ng reaction 00 skinBurni s ng skin Citalopr Propensi Active Itching 2020-0 Burning Meth ketty am ty to [address] adverse 00:00: Hospita reaction 00 l s to drug Tramadol Propensi Active Seizure 2018- migraines Me thodi ty to 09-23 st adverse 00:00: Hospita reaction 00 l s to drug Iodine Drug [facility] 2016[facility] Containi 00 Center ng Products [place] Drug Active [address] [facility] Intolera 11[facility] nce 00[facility] Medical 00 Center IODINE Allergy Active High Anaphylaxis [address] [facility] [facility] IODIDE 00:00: Medical CONTAINI 00 Center NG PRODUCTS KETOROLA Allergy Active [facility] 00:[facility]: Medical 00 Center Ketorola Propensi Active Other (See 2017 migraines Methodi c ty to Comments) 11-07 st adverse 00:00: Hospita reaction 00 l s to drug Iodine Propensi Active Anaphylaxis 2017-0 Met hodi And ty to 10-19 st Iodide adverse 00:00: Hospita Containi reaction 00 l ng s to Products drug Povidone Propensi Active Anaphylaxis 2017-0 M ethodi -Iodine ty to 10-19 st adverse 00:00: Hospita reaction 00 l s to drug Iodine Propensi Active Anaphylaxis 2017-0 Met hodi And ty to 10-19 st Iodide adverse 00:00: Hospita Containi reaction 00 l ng s to Products drug Latex Propensi Active Hives 2016-0 Methodi ty to 10-19 st adverse 00:00: Hospita reaction 00 l s to drug Shellfis Propensi Active Anaphylaxis 2017-0 M ethodi h ty to 10-19 st Derived adverse 00:00: Hospita reaction 00 l s to drug Tramadol Propensi Active 2017-[address] ty to - [facility] adverse 00:00: Medical reaction 00 Center s Vancomyc Propensi Active 2017-[address] in ty to 2-13 [facility] Analogue adverse 00:00: Medical s reaction 00 Center s TRAMADOL Allergy Active 2017-[address] 2[facility]13 [facility] 00:00: Medical 00 Center VANCOMYC Allergy Active 2017-[address] IN 2-13 [facility] ANALOGUE 00:00: Medical S 00 Center Vancomyc Propensi Active Hives 0 Method i in ty to 09-25 st Analogue adverse 00:00: Hospita s reaction 00 l s to drug Povidone Propensi Active 2013-[address] -Iodine [...] adverse 00:00: Medical reaction 00 Center s POVIDONE Allergy Active 2013-[address] -IODINE 0[facility]03 [facility] 00:00: Medical 00 Center LATEX Allergy Active 2013-[address] [facility] 00:00: Medical 00 Center LEVOFLOX Allergy Active 2013-[address] ACIN 0-03 [facility] 00:00: Medical 00 Center PROMETHA Allergy Active 2013-[address] ZINE 0-03 [facility] 00:00: Medical 00 Center Levoflox Propensi Active Anaphylaxis 2013-08 Tongue M ethodi acin ty to 0-[address] adverse 00:00: Hospita reaction 00 l s to drug Prometha Propensi Active Hives 2013-08 Method i zine ty to 0-03 st adverse 00:00: Hospita reaction 00 l s to drug Betadine Betadine Active Memori a Skin Skin 8-09 l 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 00:00: Jordy n 00 iodinate iodinate Active Memori a d d 8-09 l radioFront Row radiocon 00:00: Jordy roberto trast trast 00 dyes dyes Levaquin Levaquin Active Memori a 8-09 l 00:00: [place] 00 Phenerga Phenerga Active Memori a n n 8-09 l 00:00: [place] 00 Betadine Allergy Active [facility] SOL[facility] to drug Physici (finding ans ) Food Food Active Memoria Seafood Seafood l [place] Latex Latex Active Memoria l [place] morphine morphine Active Memori a l [place] vancomyc vancomyc Active Memori a in in l [place] Elavil Elavil Active Memoria l [place] Latex Allergy Active [facility] Exam to drug Physici Gloves (finding ans MISC ) Levaquin Allergy Active [facility] to drug Physici (finding ans ) Phenerga Allergy Active UT n to drug Physici (finding ans ) Vancomyc Allergy Active UT in HCl to drug Physici SOLR (finding ans ) STEROIDS Allergy Active [facility] Family History Family Member Diagnosis Comments Start Date Stop Date Source Family member No history of Methodis t cancer [facility] Maternal aunt Cancer [facility] Maternal aunt Melanoma [facility] Maternal grandfather Stroke [facility] Natural mother Diabetes [facility] Natural sister Stroke [facility] Maternal uncle Leukemia [facility] Social History Social Habit Start Date Stop Date Quantity Comments Source History SDOH [place]astaf[place] Alcohol Frequency Hospita l History SDOH [place] Alcohol Std Hospital Drinks History SDOK [facility] Exposure to 2022-08-04 2022-08-14 Not sure University SARS-CoV-2 00:00:00 20:42:00 [facility] (event) Branch Alcohol intake 2021-06-29 2021-06-29 Current non-drinker M ethodist 00:00:00 00:00:00 of alcohol Hospital (finding) Alcohol Comment 2018-08-02 2018-08-[address] 00:00:00 00:00:00 Hospital Tobacco use and 2014-05-15 2014-05-15 Never used LANA Benz kes exposure 00:00:00 00:00:00 Medical Center Sex Assigned At [address] 00:00:00 00:00:00 Medical Center Smoking Status Start Date Stop Date Source Tobacco smoking consumption [facility] unknown Branch Social History [facility] Medications Ordered Filled Start Stop Current Ordering [...] 1000mL at 999 Uni vers (NS) bolus 08-15-03 mL/hr, ity of infusion 04:00: 04:32 1,000 mL, Donal as 1,000 mL 00 :00 IV Medical Infusion, Branch ONCE, 1 dose, On Sun08/14/22 at 2200, STAT levETIRAcet 2022- No 1000mg 1,000 mg, Univers am (KEPPRA) 08-15 IV ity of in NACL 03:00: 04:33 Piggyback, Donal as (ISO-OS) 00 :00 ONCE, 1 Medical 1,000 dose, On mg/100 mL Sun08/14/22 RTU at 2100, Administer over 15 Minutes, 100 mL levETIRAcet 0 Yes [id number] 1000mg Take 1 Univers am (KEPPRA) 08-14 tablet by ity of 1,000 mg 00:00: mouth in [place] tablet the morning Branch and 1 tablet in the evening. Lacosamide 0 Yes [id number] 200mg Take 1 Univers (VIMPAT) 08-14 tablet by ity of 200 mg 00:00: mouth in [place] tablet 00 the Branch and 1 tablet in the evening. ALPRAZolam 0 Yes [id number] .25mg Take 1 Univers (XANAX) 08-14 tablet by ity of 0.25 mg 00:00: mouth in [place] tablet 00 the morning Branch and 1 tablet at noon and 1 tablet in the evening. acetaminoph 2020-08 No 1{tbl} Q6H Take 1 Methodi en-codeine 08-[address] (TYLENOL 00:00: 05:59 mouth Hospita WITH 00 :00 every 6 l CODEINE #3) (six) 300-30 mg hours as per tablet needed for moderate pain for up to 5 days .acute pain. acetaminoph 2020-08 No 1{tbl} Q6H Take 1 Methodi en-codeine 08-[address] (TYLENOL 00:00: 05:59 mouth Hospita WITH 00 :00 every 6 l CODEINE #3) (six) 300-30 mg hours as per tablet needed for moderate pain for up to 5 days .acute pain. No known No No known UT medications 04-25 medication He alth 12:13: s 10 No known No No known UT medications 04-25 medication He alth 12:13: s 10 bumetanide Yes [id number] 2mg QD Take 1 U T (Bumex) 2 - tablet (2 Healt h MG tablet 00:00: mg total) 00 by mouth 1 (one) time each day. lisinopril Yes [id number] 2.5mg QD Take 1 UT 2.5 MG 04-25 tablet Health tablet 00:00: (2.5 mg 00 total) by mouth 1 (one) time each day. metoprolol Yes [id number] 50mg Q.5D Take 1 U T succinate [...] 50 MG 24 hr tablet lisinopril Yes [id number] 2.5mg QD Take 1 UT 2.5 MG - tablet Health tablet 00:00: (2.5 mg 00 total) by mouth 1 (one) time each day. metoprolol Yes [id number] 50mg Q.5D Take 1 U T succinate -29 tablet (50 Heal th XL 00:00: mg total) (Toprol-XL) 00 by mouth 2 50 MG 24 hr (two) tablet times a day. lisinopril 2020- No [id number] 2.5mg QD Take 1 UT 2.5 MG 6-29 - tablet Health tablet 00:00: 00:00 (2.5 mg 00 :00 total) by mouth 1 (one) time each day. metoprolol 2020- No [id number] 50mg Q.5D Take 1 UT succinate 02-08-13 tablet (50 Hea lth XL 00:00: 00:00 [...] 16:32: nightly. Hospita capsule 59 l busPIRone Yes 15mg Q.[id number] Take 15 mg Methodi (BUSPAR) 10 4-26 [id number] [address] mouth [address] MG tablet 16:32: [...] Hospita capsule 59 l busPIRone Yes 15mg Q.[id number] Take 15 mg Methodi (BUSPAR) 10 4-26 [id number] [address] mouth 3 [address] MG tablet 11:32: [...] 59 times a l tablet day. lisinopriL 2021-0 Yes 2.5mg QD Take 2.5 Me thodi [...] Hospita capsule 59 l busPIRone Yes 15mg Q.[id number] Take 15 mg Methodi (BUSPAR) 10 4-26 [id number] mouth [address] MG tablet 11:32: [...] mouth Hospita tablet 59 daily. l BUMETanide 2020-0 Yes 2mg Q.5W Take 2 mg Me [...] capsule 59 l busPIRone 0 Yes 15mg Q.[id number] Take 15 mg Methodi (BUSPAR) 10 4-26 [id number] mouth [address] MG tablet 11:32: [...] capsule 59 l busPIRone 0 Yes 15mg Q.[id number] Take 15 mg Methodi (BUSPAR) 10 4-26 [id number] [address] mouth [address] MG tablet 11:32: [...] capsule 59 l busPIRone 0 Yes 15mg Q.[id number] Take 15 mg [facility]i (BUSPAR) 10 4-26 [id number] [address] mouth [address] MG tablet 11:32: [...] capsule 59 l busPIRone 0 Yes 15mg Q.[id number] Take 15 mg Methodi (BUSPAR) 10 4-26 [id number] [address] mouth [address] MG tablet 11:32: [...] Q.5D Take 1 Met hodi (Vimpat) 11-17 05-[address] 200 mg 00:00: 04:59 (200 [...] 200mg Q.5D Take 1 Met hodi (VIMPAT) 09-[address] 200 mg 00:00: 05:59 (200 [...] Q.5D Take 1 Me thodi am (KEPPRA) 09-17- tablet st 500 MG 00:00: 05:59 (500 [...] a l per tablet day. diazePAM 2019- No 10mg Q.[id number] Take 10 mg Methodi (VALIUM) 5 05-08 [id number] [address] mouth 3 [address] MG tablet 17:49: 00:00 3D (three) Hosp arcenio 43 :00 times a l day as needed for anxiety. penbutolol 2019- No 20mg QD Take 20 mg Methodi [...] to 30 days. lactulose 2019- No 20g Q.[id number] Take 30 mL Methodi 20 gram/30 05-08 [id number] (20 g s t mL solution 00:00: 04:59 3D total) by Hospita 00 :00 mouth 3 l (three) times a day as needed (CONSTIPAT ION) for up to 30 days. meclizine 2019- No 25mg Q.[id number] Take 1 Methodi (ANTIVERT) 05-08 [id number] tablet (25 st 25 mg 00:00: 04:59 3D mg total) Hospit a tablet 00 :00 by mouth 3 l (three) times a day as needed for dizziness for up to 30 days. pregabalin 2020- No 50mg Q.[id number] Take 2 Methodi (LYRICA) 25 05-[id number] MG capsule 00:00: 04:59 3D (50 mg Hosp arcenio 00 :00 total) by l mouth 3 (three) times a day for 30 days. lisinopriL 2019- No 2.5mg QD Take 1 Met hodi (PRINIVIL) 05-[address] 2.5 mg 00:00: 04:59 (2.5 mg Hospita tablet 00 :00 total) by l mouth daily for 30 days. metoprolol 2019-0 2020- No 50mg Q.5D Take 1 Meth ketty succinate 05-08 tablet (50 st XL 00:00: 04:59 mg total) Hospita (TOPROL-XL) 00 :00 by mouth 2 l 50 mg 24 hr (two) tablet times a day for 30 days. levETIRAcet 2019-0 2020- No 500mg Q.5D Take 1 Me thodi am (Keppra) 05-[address] 500 MG 00:00: 04:59 (500 mg Hospita tablet 00 :00 total) by l mouth 2 (two) times a day for 30 days. lacosamide 2019-0 2020- No 100mg Q.5D Take 1 Met hodi (VIMPAT) 05-[address] 100 mg 00:00: 00:00 (100 mg Hospita tablet 00 :00 total) by l mouth 2 (two) times a day for 30 days. gabapentin 2019-0 2020- No 600mg Q.5D Take 600 M ethodi (NEURONTIN) 05-[address] 600 mg 08:52: 00:00 mouth 2 Hospita tablet 08 :00 (two) l times a day. BUMETanide 2019-0 2020- No 2mg QD Take 2 mg M ethodi (BUMEX) 2 05-[address] MG tablet 08:51: 00:00 [...] :00 total) by Center mouth daily. albuterol 2019-2020- No 2.5mg Take 0.[address] [...] (four) hours as needed for Wheezing. albuterol 2019-2020- No 2{puff} Inhale [address] HFA 3-01 03-01 puffs by [facility] (VENTOLIN 00:00: 23:59 mouth via Me dical HFA) 90 00 :00 inhaler Center mcg/actuati every 4 on inhaler (four) hours as needed for Wheezing. albuterol 2020- No 2{puff} Inhale [address] HFA 3-10-11 puffs by [facility] (VENTOLIN 00:00: 23:59 mouth [...] Memoria 02-12 Route: l 09:11: IVP, Drug [place] 00 form: INJ, ONCE, Dosing Weight 68.182, kg, Priority: STAT, Start date: 02/13/16 4:11:00 CDT, Stop date: 02/13/16 4:11:00 CDT Sodium 2016-0 No 1,000 mL, Memori a Chloride 7-03 Rate: l 0.9% IV 09:11: 1,000 [place] 1000 mL 00 ml/hr, Infuse over: 1 hr, Route: IV, Dosing Weight 68.182 kg, Total Volume: 1,000, Start date: 02/13/16 4:11:00 CDT, Duration: 1 doses or times, Stop date: 02/13/16 5:10:00 CDT, Bolus Dose Reglan 2016-0 No 10 mg, Memoria 7-03 Route: l 09:11: IVP, Drug [place] 00 form: INJ, ONCE, Dosing Weight 68.182, [...] 7-03 Rate: l 0.9% IV 09:11: 1,000 [place] 1000 mL 00 ml/hr, Infuse over: 1 [...] 7-03 Rate: l 0.9% IV 09:11: 1,000 [place] 1000 mL 00 ml/hr, Infuse over: 1 [...] 7-03 Rate: l 0.9% IV 09:11: 1,000 [place] 1000 mL 00 ml/hr, Infuse over: 1 hr, Route: IV, Dosing Weight 68.182 kg, Total Volume: 1,000, Start date: 02/13/16 4:11:00 CDT, Duration: 1 doses or times, Stop date: 02/13/16 5:10:00 CDT, Bolus Dose Reglan 2016-0 No 10 mg, Memoria 7-03 Route: l 09:11: IVP, Drug [place] 00 form: INJ, ONCE, Dosing Weight 68.182, kg, Priority: STAT, Start date: 02/13/16 4:11:00 CDT, Stop date: 02/13/16 4:11:00 CDT Sodium 2016-0 No 1,000 mL, Memori a Chloride 7-03 Rate: l 0.9% IV 09:11: 1,000 [place] 1000 mL 00 ml/hr, Infuse over: 1 [...] 7- Route: PO, l 08:17: Drug form: [place] 00 TAB, ONCE, Dosing Weight 68.182, kg, Priority: STAT, Start date: 02/13/16 3:17:00 CDT, Stop date: 02/13/16 3:17:00 CDT Acetaminoph 2016-0 No 650 mg, Mem oria en 7- Route: PO, l 08:17: Drug form: [place] 00 TAB, ONCE, Dosing Weight 68.182, kg, Priority: STAT, Start date: 02/13/16 3:17:00 CDT, Stop date: 02/13/16 3:17:00 CDT Acetaminoph 2016-0 No 650 mg, Mem oria en - Route: PO, l 08:17: Drug form: [place] [...] Memoria 7- Route: l 06:19: IVP, Drug [place] 00 form: INJ, ONCE, Dosing Weight 68.182, kg, Priority: STAT, Start date: 02/13/16 1:19:00 CDT, Stop date: 02/13/16 1:19:00 CDT Zofran 2016-0 No 4 mg, Memoria 7- Route: l 06:19: IVP, Drug [place] 00 form: INJ, ONCE, Dosing Weight 68.182, kg, Priority: STAT, Start date: 02/13/16 1:19:00 CDT, Stop date: 02/13/16 1:19:00 CDT Zofran 2016-0 No 4 mg, Memoria 7- Route: l 06:19: IVP, Drug [place] 00 form: INJ, ONCE, Dosing Weight 68.182, kg, Priority: STAT, Start date: 02/13/16 1:19:00 CDT, Stop date: 02/13/16 1:19:00 CDT Zofran 2016-0 No 4 mg, Memoria 7- Route: l 06:19: IVP, Drug [place] 00 form: INJ, ONCE, Dosing Weight 68.182, kg, Priority: STAT, Start date: 02/13/16 1:19:00 CDT, Stop date: 02/13/16 1:19:00 CDT Zofran 2016-0 No 4 mg, Memoria 7- Route: l 06:19: IVP, Drug [place] 00 form: INJ, ONCE, Dosing Weight 68.182, kg, Priority: STAT, Start date: 02/13/16 1:19:00 CDT, Stop date: 02/13/16 1:19:00 CDT Zofran 2016-0 No 4 mg, Memoria 7- Route: l 06:19: IVP, Drug [place] 00 form: INJ, ONCE, Dosing Weight 68.182, kg, Priority: STAT, Start date: 02/13/16 1:19:00 CDT, Stop date: 02/13/16 1:19:00 CDT Saline No Notes: Memoria Flush 0.9% 7-03 (Same as: l 06:07: BD [place] 00 Posiflush) Saline No Notes: Memoria Flush 0.9% 7-03 (Same as: l 06:07: BD [place] 00 Posiflush) Saline No Notes: Memoria Flush 0.9% 7-03 (Same as: l 06:07: BD [place] 00 Posiflush) Saline No Notes: Memoria Flush 0.9% 7-03 (Same as: l 06:07: BD [place] 00 Posiflush) Saline No Notes: Memoria Flush 0.9% 7-03 (Same as: l 06:07: BD [place] 00 Posiflush) Saline No Notes: Memoria Flush 0.9% 7-03 (Same as: l 06:07: BD [place] 00 Posiflush) Ibuprofen Yes Special Memor ia 800 MG Oral 1-23 Instructio l Tablet 08:52: ns: Take [place] [Motrin] 00 with food Ibuprofen Yes Special Memor ia 800 MG Oral 1-23 Instructio l Tablet 08:52: ns: Take [place] [Motrin] 00 with food Ibuprofen Yes Special Memor ia 800 MG Oral 1-23 Instructio l Tablet 08:52: ns: Take [place] [Motrin] 00 with food Ibuprofen Yes Special Memor ia 800 MG Oral 1-23 Instructio l Tablet 08:52: ns: Take [place] [Motrin] 00 with food Ibuprofen Yes Special Memor ia 800 MG Oral 1-23 Instructio l Tablet 08:52: ns: Take [place] [Motrin] 00 with food Ibuprofen Yes Special Memor ia 800 MG Oral 1-23 Instructio l Tablet 08:52: ns: Take [facility] [place] [facility] [Motrin] 00 with food Ketorolac No 4 days [facility] 1-23 l 08:49: [facility] [place] 00 Ketorolac No 4 days [facility] 1-23 l 08:49: [facility] [place] 00 Ketorolac No 4 days [facility] 1-23 l 08:49: [place] Ketorolac No 4 days [facility] 09-04 l 08:49: [facility] [place] 00 Ketorolac No 4 days [facility] 09-04 l 08:49: [facility] [place] 00 Ketorolac No 4 days [facility] 09-04 l 08:49: [facility] 00 gabapentin Yes 600 mg = 1 M emoria 600 MG Oral 1-12 tab, PO, l Tablet 21:41: TID, # 90 Jord[facility] n [Neurontin] 00 tab, 0 Refill(s) atorvastati Yes 20 mg = 1 M emoria n 20 MG -12 tab, PO, l Oral Tablet 21:41: Bedtime, [...] PO, l Oral Tablet 21:41: Bedtime, # [facility] [place] [Lipitor] 00 30 tab, 0 Refill(s) metoprolol [...] Date Status Commen ts Source Name Name [facility] 2020-11-03 Completed [facility] 00:00:00 [facility] 2020-11-03 Completed [facility] 00:00:00 [facility] 2020-11-03 Completed [facility] 00:00:00 [facility] 2020-11-03 Completed [facility] 00:00:00 [facility] 2020-11-03 Completed [facility] 00:00:00 [facility] 2020-11-03 Completed [facility] 00:00:00 [facility] 2020-11-03 Completed [facility] 00:00:00 Hospital Vital Signs Vital Name Observation Time Observation Value Comments Source Systolic blood 2022-08-15 113 mm[Hg] [facility] pressure 04:00:00 [facility] Diastolic blood 2022-08-15 76 mm[Hg]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 [id number] Methodi 22:04:00 18:12:00 Lydia Oden [address]4440.1.[address] Maribel Dickey 3.430.2.7 H ospita Lj Thakkar Britni .3.280586 l .8 2020-09-10 2020-09-10 Travel 1.2.840.1 1.2.856.131 8523 937535 Methodi 00:00:00 00:00:[address] 3.430.2.7 0.2.7.3.698 Ho spita .3.201034 084.8 l .8 2020-07-15 2020-07-16 Emergency Pedro, 1.2.840.1 [id number] 2099 389274 Methodi 20:20:00 01:48:[address] Mendel 3.430.2.7 Hospit a .3.789000 l .8 2020-07-15 2020-07-15 Travel 1.2.840.1 1.2.982.934 6707 466923 Methodi 00:00:00 00:00:[address] 3.430.2.7 0.2.7.3.698 Ho spita .3.933957 084.8 l .8 2020-05-06 2020-05-08 Emergency Kevin Sood 1.2.840.1 1041 78700 [id number] Methodi 00:09:00 12:49:00 Blaze Squires 29989.1.[address] 3.430.2.7 Hospit a .3.951734 l .8 2020-05-06 2020-05-06 Travel 1.2.840.1 1.2.321.195 0959 951492 Methodi 00:00:00 00:00:[address] 3.430.2.7 0.2.7.3.698 Ho spita .3.459547 084.8 l .8 2020-02-20 2020-02-20 Emergency ER [facility] Emergency [id number] [facility] 19:04:00 19:04:00 2020-02-20 2020-02-20 Outpatient FBCOVID FBCOVID [id number] -20 FBCOVID 00:00:00 00:00:00 [id number] 9962-06-24 2020-02-04 Outpatient Mason DUONG [facility] [address]26 [place] 10:15:00 23:59:[address] [facility] [facility] 2020-02-04 2020-02-04 Emergency ER [facility] Emergency [id number] [facility] 05:29:00 05:29:00 2019-12-03 2019-12-03 Emergency E BRITNI RODRIGUEZ [facility] 7501 Memoria 16:11:00 19:03:00 [facility] 2019-12-03 2019-12-03 Outpatient KARISHMA, [facility] 0122 Memoria 17:00:00 18:55:00 THOMAS [facility] 2019-10-12 2019-10-12 Emergency [facility] [id number] [facility] 17:06:00 17:06:00 [id number] 2019-08-25 2019-08-25 Emergency E [facility] 0013 [facility] 17:44:00 17:44:00 2016-02-13 2016-02-13 EC nullFlavo [facility] [id number] 475 Memoria 05:43:00 11:41:00 Emergency [place] 00 l [facility] 2016-02-13 2016-02-13 EC nullFlavo [facility] [id number] 475 Memoria 05:43:00 11:41:00 Emergency r [place] 00 l [facility] 2016-02-13 2016-02-13 Outpatient Sravanthi, [facility] [id number] 00:43:00 06:41:00 Malorie 00 Suzanne 2014-09-04 2014-09-04 EC [facility]Flavo [facility] [id number] 675 Memoria 07:09:00 09:15:00 Emergency r [place] 19 l [facility] 2014-09-04 2014-09-04 EC nullFlavo [facility] [id number] 675 Memoria 07:09:00 09:15:00 Emergency r Antonio 19 l [facility] 2014-09-04 2014-09-04 Outpatient [facility], 2.16.840. 2.16.840.1. [id number] 01:09:00 03:15:00 Tatsuo 1.258072. 211085.3.61 19 3.615.0.1 5.0.270 88 5449-01-12 2014-08-24 EC nullFlavo [facility] [id number] 675 Memoria 17:17:00 22:15:00 Emergency r Antonio 18 l [facility] 2014-08-24 2014-08-24 EC nullFlavo [facility] [id number] 675 Memoria 17:17:00 22:15:00 Emergency r Antonio 18 l [facility] 2014-08-24 2014-08-24 Outpatient [facility], 2.16.840. 2.16.840.1. [id number] 11:17:00 16:15:00 Tatsuo 1.265296. 759381.3.61 18 3.615.0.1 5.0.101 01 Results Test Description Test Time Test Comments Results Result Comments Source TEST, SERUM 2022-08-15 04:20:10 Test Item Value Reference Range Interpretation Comme nts PREG SERUM (test code = 7388299232) Negative CIRO (test code = CIRO) Less than 10 IU/L. ?If low titer or ectopic is suspected, resubmit specimen in 48-72 hours. [facility] [id number] 03:49:08 Test Item Value Reference Interpretation Comments Range TROPONIN I (test 0.001 ng/mL See_Comment [Automated code = 2511704360) message] The system which generated this result [...] biotin. Lab Interpretation Normal (test code = 95445-9) [facility]. METABOLIC PANEL (50977)2022-08-15 03:37:26 Test Item Value Reference Range Interpretation Comments NA (test code = 138 mmol/L 135-145 1142883997) K (test code = 3.6 mmol/L 3.5-5.0 2593373707) CL (test code = 105 mmol/L 98-108 8730092997) CO2 TOTAL (test code 24 mmol/L 23-31 = 7280259696) AGAP (test code = 2-16 5873636830) BUN (test code = 9 mg/dL 7-23 5253180158) GLUCOSE (test code = 105 mg/dL 70-110 0490997279) CREATININE (test code 0.75 mg/dL 0.50-1.04 = 7626427788) TOTAL BILI (test code 0.6 mg/dL 0.1-1.1 = 8147618673) CALCIUM (test code = 8.7 mg/dL 8.6-10.6 7436722375) T PROTEIN (test code 6.7 g/dL 6.3-8.2 = 3519592289) ALBUMIN (test code = 3.9 g/dL 3.5-5.0 1972625861) ALK PHOS (test code = 69 U/L 34-122 3492345334) ALTv (test code = 35 U/L 5-35 2-6) AST(SGOT) (test code 27 U/L 13-40 = 3420368213) eGFR (test code = mL/min/1.73m2 3115296503) CIRO (test code = CIRO) Association of [...] or urine or abnormalities in imaging tests). [facility] WITH [id number] 03:25:05 Test Item Value Reference Range Interpretation [...] RDW-SD (test code = 41.3 fL 39.0-49.9 59161-2) RDW-CV (test code = 12.5 % 12.0-15.5 788-0) PLT (test code = See_Comment H [Automated 777-3) message] The sy stem which generated this result transmitted reference range : 166 - 358 10*3/ ?L. The reference r ozzy was not used to interpret this result as normal/abnormal . MPV (test code = 9.4 fL 9.5-12.9 L 98409-6) NRBC/100 WBC (test See_Comment [Automat ed code = 7405654490) message] The system which generated this result transmitted reference range : 0.0 - 10.0 /100 WBCs. The refer ence range was not u sed to interpret th is result as normal/abnormal . NRBC x10^3 (test code See_Comment [Auto mated = 6952036791) message] The s ystem which generated this result transmitted reference range : 10*3/?L. The reference range was not used to interpret this result as normal/abnormal . GRAN MAT (NEUT) % 55.2 % (test code = 770-8) IMM GRAN % (test code 0.50 % = 8533569524) LYMPH % (test code = 30.7 % 736-9) MONO % (test code = 6.4 % 5905-5) EOS % (test code = 6.2 % 713-8) BASO % (test code = 1.0 % 706-2) GRAN MAT x10^3(ANC) 5.54 10*3/uL 1.88-7.09 (test code = 0312251357) IMM GRAN x10^3 (test 0.05 10*3/uL 0.00-0.06 code = 6452205229) LYMPH x10^3 (test code 3.08 10*3/uL 1.32-3.29 = 731-0) MONO x10^3 (test code 0.64 10*3/uL 0.33-0.92 = 742-7) EOS x10^3 (test code = 0.62 10*3/uL 0.03-0.39 H 711-2) BASO x10^3 (test code 0.10 10*3/uL 0.01-0.07 H = 704-7) Lab Interpretation Abnormal (test code = 77845-9) [facility] [id number] 14:27:33 Test Item Value Reference Interpretation Comments Range Levetiracetam (test <2.0 mcg/mL L Referen ce Range: code = 8595414) 12.0-46.0 To xic level is not we ll established. Interpretation should include a clinical evalua tion. For additional information, pl ease refer tohttp://educat ion.Q [employer] .Tripleseat/ faq/EHJ011(This link is being provid ed forinformationa l/edu cational purpos es only.) This jose t was developed and i ts analytical performance characteristics have been determined by [employer]. It has not been cleared or appr christiano by theFDA. This assay has been validated pursu ant to the CLIA regulations and is used for clinic al purposes. CIRO (test code = Performing Lab CIRO) *GAGANDEEP [employer] [facility], [address] [place] [phone] Parminder Szymanski MD Lab Interpretation Abnormal (test code = 20485-0) [facility] [id number] 14:27:33 Test Item Value Reference Interpretation Comments Range Levetiracetam (test <2.0 mcg/mL L Referen ce Range: code = 6361036) 12.0-46.0 To xic level is not we ll established. Interpretation should include a clinical evalua tion. For additional information, pl ease refer tohttp://educat ion.Paradine/ faq/NWI428(This link is being provid ed forinformationa l/edu cational purpos es only.) This jose t was developed and i ts analytical performance characteristics have been determined by [employer]. It has not been cleared or appr christiano by theA. This assay has been validated pursu ant to the CLIA regulations and is used for clinic al purposes. CIRO (test code = Performing Lab CIRO) *GAGANDEEP [employer] [facility], [address] [place] [phone] T Stephon MCDUFFIE Lab Interpretation Abnormal (test code = 10876-0) [facility] CenterCT, BRAIN, WITHOUT [id number] 23:05:00 Unlisted Reason for Exam - Click Yes and Enter Reason Below->No [facility] 1975 Sex: FFINAL [...] Date/Time: 05/05/2021 23:05:29 CT, SPINE, CERVICAL, WO [id number] 23:05:00Unlisted Reason for Exam - Click Yes and Enter Reason Below->No [facility] 1975 Sex: FFINAL [...] Aneudy Asencio MDReport Verified Date/Time: 05/05/2021 23:05:29 Troponin [id number] 21:22:45 Test Item Value Reference Range Interpretation Comments Troponin I (test code = <0.03 0.00-0.15 61341-2) CIRO (test code = CIRO) Troponin I [...] THELMA Lab Interpretation (test Normal code = 93502-3) [facility] CenterTrop[facility] [id number] 21:22:45 Test Item Value Reference Range Interpretation Comments Troponin I (test code = <0.03 0.00-0.15 88141-7) CIRO (test code = CIRO) Troponin I [...] THELMA Lab Interpretation (test Normal code = 44564-2) [facility] [id number] 21:22:45 Test Item Value Reference Range Interpretation [...] failure, acidosis, acute neurological disease, and persistent tachyarrhythmia.Product Development Assistant ID - JUSTINComprehensive metabolic [id number] 21:20:36 Test Item Value Reference Interpretation Comments Range Protein, Total (test 7.5 See_Comment Specime n code = 2885-2) slightly hemolyzed [Automated message] The system which generated this result transmitted reference range : 6.0 - 8.5 gm/dL . The reference range was not used to interpret this result as normal/abnormal . Albumin (test code = 4.1 g/dL 3.5-5.0 [place] n 13792-9) slightly hemolyzed Alkaline Phosphatase 72 U/L 30-115 (test code = 6768-6) Total Bilirubin 1.0 mg/dL 0.1-1.2 Specimen (test code = 1975-2) slightl y hemolyzed Sodium (test code = 141 meq/L 343-530 0574-2) Potassium (test code 3.8 meq/L 3.6-5.5 Specime n = 2823-3) slightly hemolyzed Chloride (test code 104 meq/L 98-106 = 2075-0) CO2 (test code = 24 meq/L 20-29 8-9) BUN (test code = 7 mg/dL 10-26 L 3094-0) Creatinine (test 0.81 mg/dL 0.50-1.20 Specimen code = 2160-0) slightly hemolyzed Glucose (test code = 92 mg/dL 70-110 2345-7) Calcium (test code = 9.4 mg/dL 8.5-10.5 68849-3) AST (test code = 21 U/L 5-40 Specimen 1920-8) slightly hemolyzed ALT (test code = 27 U/L 5-50 Specimen 1742-6) slightly hemolyzed EGFR (test code = 76 mL/min/1[place]73 [place] [address]-5) m NOT ACCURATE CREATININE CLEARANCE IN PREDICTING GLOMERULAR FILTRATION RATE . ESTIMATED GFR I S NOT APPLICABLE FOR DIALYSIS PATIENTS. CIRO (test code = Product Development Assistant ID - CIRO) JUSTINOperator ID - JUSTINOperator [...] THELMA Lab Interpretation Abnormal (test code = 27227-0) [facility] CenterCom[facility] [id number] 21:20:36 Test Item Value Reference Interpretation Comments Range Protein, Total (test 7.5 See_Comment Specime n code = 2885-2) slightly hemolyzed [Automated message] The system which generated this result transmitted reference range : 6.0 - 8.5 gm/dL . The reference range was not used to interpret this result as normal/abnormal . Albumin (test code = 4.1 g/dL 3.5-5.0 [place] [address]-4) slightly hemolyzed Alkaline Phosphatase 72 U/L 30-115 (test code = 6768-6) Total Bilirubin 1.0 mg/dL 0.1-1.2 Specimen (test code = 1975-2) slightl y hemolyzed Sodium (test code = 141 meq/L 091-930 8784-2) Potassium (test code 3.8 meq/L 3.6-5.5 Specime n = 2823-3) slightly hemolyzed Chloride (test code 104 meq/L 98-106 = 2075-0) CO2 (test code = 24 meq/L 20-29 2028-9) BUN (test code = 7 mg/dL 10-26 L 3094-0) Creatinine (test 0.81 mg/dL 0.50-1.20 Specimen code = 2160-0) slightly hemolyzed Glucose (test code = 92 mg/dL 70-110 2345-7) Calcium (test code = 9.4 mg/dL 8.5-10.5 33946-4) AST (test code = 21 U/L 5-40 Specimen 1920-8) slightly hemolyzed ALT (test code = 27 U/L 5-50 Specimen 1742-6) slightly hemolyzed EGFR (test code = 76 mL/min/1.[place] [address]-8) m NOT ACCURATE CREATININE CLEARANCE IN PREDICTING GLOMERULAR FILTRATION RATE . ESTIMATED GFR I S NOT APPLICABLE FOR DIALYSIS PATIENTS. CIRO (test code = Product Development Assistant ID - CIRO) JUSTINOperator ID - JUSTINOperator [...] THELMA Lab Interpretation Abnormal (test code = 70490-0) [facility] CenterCOMPREHENSIVE METABOLIC [id number] 21:20:36 Test Item Value Reference Range Interpretation [...] S NOT APPLICABLE FOR DIALYSIS PATIEN TS. Product Development Assistant ID - JUSTINOperator ID - JUSTINOperator ID - JUSTINOperator ID - JUSTINOperator ID - JUSTINOperator ID - JUSTINOperator ID - JUSTINOperator ID - JUSTINOperator ID - JUSTINOperator ID - JUSTINOperator ID - JUSTINOperator ID - JUSTINOperator ID - JUSTINOperator ID - JUSTINOperator ID - JUSTINOperator ID - JUSTINOperator ID - JUSTINOperator ID - JUSTINOperator ID - JUSTINCBC with platelet count + automated [id number] 20:51:36 Test Item Value Reference Range Interpretation Comments WBC (test code = 6690-2) 12.0 See_Comment H [A utomated message] The system [employer] generated this result transmitted ref erence range: 4.0 - 10 .0 K/L. The refe rence range was not u sed to interpret this result as normal/abnor mal. RBC (test code = 789-8) 4.84 See_Comment [Au tomated message] The system [employer] generated this result transmitted ref erence range: 4.00 - 5 .00 M/L. The refe rence range was not u sed to interpret this result as normal/abnor mal. MCHC (test code = 786-4) 34.8 See_Comment [A utomated message] The system [employer] generated this result transmitted ref erence range: [...] H [Aut omated message] 777-3) The system [employer] generated this result transmitted ref erence range: 150 - 43 0 K/CU MM. The referen ce range was not u sed to interpret this result as normal/abnor mal. MPV (test code = 9.7 fL 6.0-11.5 18719-8) nRBC (test code = 413) 0 See_Comment [Aut omated message] The system [employer] generated this result transmitted ref erence range: [...] See_Comment [Aut omated message] 670) The system [employer] generated this result transmitted ref erence range: 1.80 - 8 .00 K/L. The refe rence range was not u sed to interpret this result as normal/abnor mal. # Lymphs (test code = 3.61 See_Comment [Auto mated message] 414) The system [employer] generated this result transmitted ref erence range: 1.48 - 4 .50 K/L. The refe rence range was not u sed to interpret this result as normal/abnor mal. # Monos (test code = 0.86 See_Comment [Autom ated message] 415) The system [employer] generated this result transmitted ref erence range: 0.00 - 1 .30 K/L. The refe rence range was not u sed to interpret this result as normal/abnor mal. # Eos (test code = 416) 0.41 See_Comment [Au tomated message] The system [employer] generated this result transmitted ref erence range: 0.00 - 0 .50 K/L. The refe rence range was not u sed to interpret this result as normal/abnor mal. # Baso (test code = 417) 0.10 See_Comment [A utomated message] The system [employer] generated this result transmitted ref erence range: 0.00 - 0 .20 K/L. The refe rence range was not u sed to interpret this result as normal/abnor mal. Immature 0 % 0-0 Granulocytes-Relative (test code = 2801) Lab Interpretation (test Abnormal code = 72380-5) [facility] with platelet count + automated [id number] 20:51:36 Test Item Value Reference Range Interpretation Comments WBC (test code = 6690-2) 12.0 See_Comment H [A utomated message] The system [employer] generated this result transmitted ref erence range: 4.0 - 10 .0 K/L. The refe rence range was not u sed to interpret this result as normal/abnor mal. RBC (test code = 789-8) 4.84 See_Comment [Au tomated message] The system [employer] generated this result transmitted ref erence range: 4.00 - 5 .00 M/L. The refe rence range was not u sed to interpret this result as normal/abnor mal. MCHC (test code = 786-4) 34.8 See_Comment [A utomated message] The system [employer] generated this result transmitted ref erence range: [...] H [Aut omated message] 777-3) The system [employer] generated this result transmitted ref erence range: 150 - 43 0 K/CU MM. The referen ce range was not u sed to interpret this result as normal/abnor mal. MPV (test code = 9.7 fL 6.0-11.5 63508-4) nRBC (test code = 413) 0 See_Comment [Aut omated message] The system [employer] generated this result transmitted ref erence range: [...] See_Comment [Aut omated message] 670) The system [employer] generated this result transmitted ref erence range: 1.80 - 8 .00 K/L. The refe rence range was not u sed to interpret this result as normal/abnor mal. # Lymphs (test code = 3.61 See_Comment [Auto mated message] 414) The system [employer] generated this result transmitted ref erence range: 1.48 - 4 .50 K/L. The refe rence range was not u sed to interpret this result as normal/abnor mal. # Monos (test code = 0.86 See_Comment [Autom ated message] 415) The system [employer] generated this result transmitted ref erence range: 0.00 - 1 .30 K/L. The refe rence range was not u sed to interpret this result as normal/abnor mal. # Eos (test code = 416) 0.41 See_Comment [Au tomated message] The system [employer] generated this result transmitted ref erence range: 0.00 - 0 .50 K/L. The refe rence range was not u sed to interpret this result as normal/abnor mal. # Baso (test code = 417) 0.10 See_Comment [A utomated message] The system [employer] generated this result transmitted ref erence range: 0.00 - 0 .20 K/L. The refe rence range was not u sed to interpret this result as normal/abnor mal. Immature 0 % 0-0 Granulocytes-Relative (test code = 2801) Lab Interpretation (test Abnormal code = 49163-7) [facility] W/PLT COUNT & AUTO [id number] 20:51:36 Test Item Value Reference Range Interpretation [...] (BEAKER) (test code = 2801) Continuous EEG cydkebhuxw4326-36-11 01:51:44CONTINUOUS VIDEO-EEG MONITORING REPORT - END OF STUDY Patient Name: Shanna BillsRN#: [id number] Date of : 1975 Initial Study Start [...] seizures captured. Onelia Hair MD ICD-10 Code: H453Qkfyowujpi EEG vlxzckqvau0787-72-99 12:59:42 CONTINUOUS VIDEO-EEG MONITORING REPORT Patient Name: [facility] GuerreroVirt[facility] BerlinN#: [id number] Date of : 1975 Initial Study Start [...] seizures captured. Onelia Hair MD ICD-10 Code: Y004UFC 12 auag7066-26-41 05:31:10 Test Item Value Reference Range Interpretation Comments Ventricular rate (test code = 253) Atrial rate (test code = 255) NE interval (test code = 266) QRSD interval [...] [facility] 12 [id number] 05:31:10 Test Item Value Reference Range Interpretation Comments Ventricular rate (test code = 253) Atrial rate (test code = 255) NE interval (test code = 266) QRSD interval [...] & [facility] 12 [id number] 05:31:10 Test Item Value Reference Range Interpretation Comments Ventricular rate (test code = 253) Atrial rate (test code = 255) NE interval (test code = 266) QRSD interval (test code = 260) QT interval (test code = 264) QTC interval (test code = 265) P axis 1 (test code = 267) QRS axis 1 (test code = 268) T wave axis (test code = 270) EKG impression (test Sinus code = 273) tachycardia-Otherwise normal ECG-In automated comparison with ECG of 17-SEP-2020 04:,-Vent. rate has increased BY 62 BPM- [facility] (routine) - Baseline [id number] 01:47:11VIDEO-EEG RECORDING AWAKE & ASLEEP - Baseline [...] Hair MD ICD-10 Code: R569CT Head Wo Wfiorwid0238-04-11 02:53:14EXAMINATION: CT HEAD WO CONTRAST CLINICAL HISTORY: [...] No CT evidence of acute intracranial abnormality. [id number] Interface, Radiology Results [facility] - 12/03/2020 9:56 PM CDT EXAMINATION: CT [...] IMPRESSION:1. No CT evidence of acute intracranial abnormality.[id number] Rastafari MwytgehjVAJX-RhS-8 (COVID-19) RNA [Presence] in Respiratory specimen by SOREN with probe lymxoyqis0259-75-97 02:03:42 Test Item Value Reference Range Interpretation Comments SARS-CoV-2 (COVID-19) RNA Not detected Not-Detected [Presence] in Respiratory specimen by SOREN with probe detection (test code = 49297-7) Whether patient is employed in a healthcare setting (test code = 04325-0) Whether the patient has symptoms related to condition of interest (test code = 12735-9) Patient was hospitalized because of this condition (test code = 40929-7) Whether the patient was admitted to intensive care unit (ICU) for condition of interest (test code = 56283-0) Whether patient resides in a congregate care setting (test code = 63280-8) [facility] Chest 1 Vw Zezlgwna0418-89-33 23:58:22EXAMINATION: XR CHEST 1 VW PORTABLE CLINICAL [...] no consolidation or effusion.3.The bones are intact.1D2RAD_P C17Jbtzwssob HospitalCRITICAL VRBT6171-83-76 21:55:13Bladimir Brumfield MD 12/04/2020 3:12 PMCritical CarePerformed by: Bladimir Brumfield MDAuthorized by: Bladimir Cisse MD Critical care provider statement: Critical care time (minutes): 35 Critical caretime was exclusive of: Separately billable procedures and treating other patients Critical care was necessary to treat or prevent imminent or life-threatening deterioration of the following conditions:NEWSPAPER COPY EDITOR failure or compromise Critical care was time [...] care for this patient from another provider.: [facility] [place] ED Preliminary Interpretation - Not an Wvzkk9981-76-35 21:55:13 Bladimir Brumfield MD 12/04/2020 3:12 [facility] Preliminary Interpretation - Not an OrderPerformed by: Bladimir Brumfield MDAuthorized by: Bladimir Brumfield MD ECG reviewed by ED Physician in the absence of a underground distribution engineer: yes Rate: ECG rate: 119Rhythm: Rhythm: sinus tachycardia Ectopy: Ectopy: none QRS: QRS axis: Normal QRS intervals: NormalConduction: Conduction: normal ST segments: ST segments: NormalT waves: T waves: normalUrine ryqlpbj6510-86-72 01:10:19 Test Item Value Reference Range Interpretation Comments Urine culture (test SEE COMMENT Bacteriu mario screen code = 7093199) negative. [facility] bcksbti0013[facility]21-92 01:10:19 Test Item Value Reference Range Interpretation Comments Urine culture (test SEE COMMENT Bacteriu mario screen code = 8243090) negative. [facility] niqszvz6197-25-02 01:10:19 Test Item Value Reference Range Interpretation Comments Urine culture (test SEE COMMENT Bacteriu mario screen code = 1727125) negative. [facility][U] XRAY HAND MIN 3 VWS RIGHT [id number] 15:17:00Images acquired, not reported on this accession number.[facility] Hand 3+ Vw Right 2020-11-03 04:37:16EXAMINATION: XR HAND 3 VW RIGHT INDICATION: dog bite COMPARISON: None IMPRESSION: 3 views of the right hand were obtained.No visible acute fracture or dislocation.No visible radiodense foreign material. [facility]ERYMATHm Interface, Radiology Results Incoming - 11/02/2020 11:40 PM CDT EXAMINATION: XR HAND 3 VW RIGHTINDICATION: dog biteCOMPARISON: NoneIMPRESSION:3 views of the right hand were obtained.No visible acute fracture or dislocation.No visible radiodense foreign material.[facility] ([facility] 2020-09-17 16:59:35Date of Study Completion: September [...] movements noted on this tracing by the oscillograph technician did not have an epileptic correlate. [...] in Respiratory specimen by SOREN with probe kwbqrnygq6621-92-84 00:31:49 Test Item Value Reference Range Interpretation Comments SARS-CoV-2 (COVID-19) RNA Not detected Not-Detected [Presence] in Respiratory specimen by SOREN with probe detection (test code = 27191-4) [facility] (routine)2020-09-11 20:16:18Date of Service: September 11ate [...] in Respiratory specimen by SOREN with probe dwgfprujt3693-55-21 07:15:55 Test Item Value Reference Range Interpretation Comments SARS-CoV-2 (COVID-19) RNA Not detected Not-Detected [Presence] in Respiratory specimen by SOREN with probe detection (test code = 72275-6) [facility] Wo Qjggtzrr2102-76-71 05:45:01EXAMINATION: CT ABDOMEN PELVIS WO CONTRAST HISTORY: [...] No high grade enterocolitis. No bowel obstruction.1D2RA D_PS02MethodiBeaver Valley HospitalJcqznjooLAGI-IrK-4 (COVID-19) RNA [Presence] in Respiratory specimen by SOREN with probe xibgnivos0190-73-23 05:23:42 Test Item Value Reference Range Interpretation Comments SARS-CoV-2 (COVID-19) RNA Not detected Not-Detected [Presence] in Respiratory specimen by SOREN with probe detection (test code = 97788-2) [facility]an[facility]chocardi[facility] Complete, (w Contrast, Strain and 3D if needed)2020-05-11 04:52:19 Test Item Value Reference Range Interpretation Comments Velocity Ratio (V1/V2) 0.85 m/s (test code = 4689) IVS,d (test code = 1.00 cm 8160858155) EF (test code = 52.31 % 3780737051) Ascending aorta (test 2.67 cm code = 9387091641) LVPWD,d (test code = 1.00 cm 4943923556) AoV Mean PG (test code mmHg = 2582655816) AV LVOT peak gradient mmHg (test code = 9921173302) MV mean gradient (test mmHg code = 9360113392) MV valve area p 1/2 3.31 cm2 method (test code = 8799079517) PV Pk Grad (test code = mmHg 0877647350) E/A ratio (test code = 5056340063) E wave decelartion time msec (test code = 2218786450) LVOT Diam,S (test code 1.98 cm = 4170857019) LVOT area (test code = 3.08 cm2 3222903116) LVOT Vmax (test code = 0.96 m/s 2669249901) LVOT VTI (test code = 0.21 m 1002237485) RVOT Vmax (test code = 0.58 m/s 3591297767) AoV Peak PG (test code mmHg = 1732409787) MV Peak E Giuliano (test 0.94 m/s code = 5279065646) MV stenosis pressure 66.39 ms 1/2 time (test code = 5988478987) MV Peak A Giuliano (test 0.74 m/s code = 2986400900) Ao Root Diameter (test 2.99 cm code = 7980145502) AoV Area, Vmax (test 2.60 cm2 code = 3709384548) AoV Area, VTI (test 2.95 cm2 code = 5281179006) AoV Vmax (test code = 1.13 m/s 8099240572) IVS/LVPW,2D (test code = 6437601322) Left Atrium Dimension 3.10 cm Anterior (test code = 9584878374) LV,d (test code = 4.15 cm 5709546051) LV,s (test code = 3.05 cm 7220020509) PV VMAX (test code = 0.78 m/s 9366226568) TR Vpeak (test code = 1.85 mm/s 4851802664) MV E A ratio (test code = 4116668797) TR pk grad (test code = mmHg 7992567765) MR peak grad (test code mmHg = 8205938140) Ao Root Diameter (test 2.99 cm code = 9685972690) LV SYS VOL (test code = 36.41 ml 8993891439) LV RIOS VOL (test code 76.34 ml = 6781098319) LV SV Teich 2D (test 39.93 ml code = 2881406199) LV Vol s Teich PSAX 36.41 ml (test code = 4010332673) MV Vmax (test code = 0.89 m 4003528600) MV VTI Tips (test code 0.22 m = 5550759363) RVOT pk grad (test code mmHg = 9000183642) AoV Vmn (test code = 3103017575) LV FS Cube 2D (test code = 0325560167) LV FS Teich 2D (test code = 3308305778) AoV VTI (test code = 0.22 m 2400025373) LA Area d A4C (test 12.41 cm2 code = 0569194701) LV EF,2D (test code = 60.32 % 8553696918) MR Vmax (test code = 4.15 m/s 1581921360) MV AE ratio (test code = 0295349668) LVOT Vmn (test code = 9255937898) Aov area Vmn (test code 2.47 cm2 = 0893503709) LA Vol d MOD A4C (test 27.63 ml code = 5658113378) LVOT mean grad (test mmHg code = 2596901696) MAX Pred HR (test code = 1019701282) 85 of MPHR (test code = 0385182680) Calc MPHR (test code = bpm 6368917241) LV SV Cube 2D (test 43.08 ml code = 9013830345) LV vol d cube 2D (test 71.42 ml code = 8603294120) LV vol s cube 2D (test 28.34 ml code = 9312481659) MV Decel slope (test 4.12 m/s2 code = 6413962358) Pred Exer Dur R1 (test code = 2776221049) Pred METS R1 (test code = 3068656625) CIRO (test code = CIRO) Left Ventricle: [...] regurgitation. No evidence of aortic valve stenosis. [facility] venous upper uytzjjois4673-38-36 06:14:50 EXAMINATION: US DUPLEX VENOUS UPPER EXTREMITY [...] visualized veins of the right upper extremity. [facility]- [id number] Interface, Radiology Results 05/08/2020 1:17 AM CDT [...] the visualized veins of the right upper extremity.[facility]-[id number] Regional Medical Center (routine)2020-05-07 22:01:23Date of Service: May 07, 2020.Date [...] a diagnosis of epilepsy.MRI Brain W Wo Iflpxpbq5060-10-85 03:27:20EXAMINATION: MRI BRAIN W WO CONTRAST CLINICAL [...] in Respiratory specimen by SOREN with probe gvijgxkqc9013-02-83 12:31:16 Test Item Value Reference Range Interpretation Comments SARS-CoV-2 (COVID-19) RNA Not detected Not-Detected [Presence] in Respiratory specimen by SOREN with probe detection (test code = 91524-2) [facility]) 2020-02-22 21:37:00 Test Item Value Reference Range Interpretation Comments SARS-COV2/RT-PCR (test code = Positive Not Detected, Negative A A 8327878) SARS-COV-2 PERFORMING LAB CPL (test code = 8340294) CT, CHEST, WITHOUT [id number] 00:54:00Reason for exam:->cough, ?covidIs the patient ?->NoWhat [...] MDReport Verified Date/Time: 02/21/2020 00:54:38 PREGNANCY SCREEN, [id number] 00:28:00 Test Item Value Reference Range Interpretation Comments TEST URINE (BEAKER) (test Negative code = 583) CBC W/PLT COUNT & AUTO [id number] 22:46:00 Test Item Value Reference Range Interpretation [...] (BEAKER) (test code = 2801) LACTIC ACID, [id number] 22:30:00 Test Item Value Reference Range Interpretation Comments LACTATE BLOOD VENOUS 1.38 mmol/L 0.50-2.00 Specime n slightly (2) (BEAKER) (test hemolyzed code = 5125) Product Development Assistant ID - JUSTINBASIC METABOLIC [id number] 22:10:00 Test Item Value Reference Range Interpretation [...] S NOT APPLICABLE FOR DIALYSIS PATIEN TS. Product Development Assistant ID - [id number] 22:09:00 Test Item Value Reference Range Interpretation [...] failure, acidosis, acute neurological disease, and persistent tachyarrhythmia.Product Development Assistant ID - [id number], CHEST, 1 VIEW, NON [id number] 20:58:00Reason for exam:->coughIs the patient ?- >NoShould [...] MDReport Verified Date/Time: 02/20/2020 20:58:56 SARS-COV2/RT-PCR ([facility])2020-02-06 03:25:00 Test Item Value Reference Range Interpretation Comments SARS-COV2/RT-PCR (test code = Positive Not Detected, Negative A A 5587512) SARS-COV-2 PERFORMING LAB CPL (test code = 1189262) URINALYSIS W/ [id number] 08:24:00 Test Item Value Reference Range Interpretation [...] 1663) SOURCE(BEAKER) (test code = 2795) SCREEN, [id number] 08:00:00 Test Item Value Reference Range Interpretation Comments TEST URINE (BEAKER) (test Negative code = 583) RAD, ABDOMEN/KUB 1 VIEW [id number] 07:21:00Reason for exam:->FEVERReason for exam:->DIARRHEAReason for exam:->EMESISFINAL REPORT RAD, ABDOMEN/KUB 1 VIEW AP CLINICAL INDICATION: FEVERDIARRHEAEMESIS COMPARISON: None TECHNIQUE: Single, frontal radiograph of the abdomen. FINDINGS: The bowel gas pattern is nonspecific, but nonobstructive. IUD is present. The regional skeleton is intact. IMPRESSION: Nonspecific, nonobstructive bowel gas pattern. Signed: Ling Jin MDReport Verified Date/Time: 02/04/2020 07:21:42 Reading Location: [facility] Radiology Reading Room COMPREHENSIVE METABOLIC [id number] 07:14:00 Test Item Value Reference Range Interpretation [...] S NOT APPLICABLE FOR DIALYSIS PATIEN TS. Product Development Assistant ID - [id number] 06:59:00 Test Item Value Reference Range Interpretation Comments LIPASE (BEAKER) (test code = 749) 9 U/L 6-51 Product Development Assistant ID - [id number] W/PLT COUNT & AUTO [id number] 06:41:00 Test Item Value Reference Range Interpretation [...] (test code = 2801) RAPID INFLUENZA A&B [id number] 19:09:00 Test Item Value Reference Range Interpretation Comments RAPID INFLUENZA A AG (BEAKER) Negative Negative, Inconclusive (test code = 1622) RAPID INFLUENZA B AG (BEAKER) Negative Negative, Inconclusive (test code = 1623) TROPONIN [id number] 18:51:00 Test Item Value Reference Range Interpretation [...] failure, acidosis, acute neurological disease, and persistent tachyarrhythmia.Product Development Assistant ID - JUSTINPREGNANCY SCREEN, [id number] 18:49:00 Test Item Value Reference Range Interpretation Comments TEST URINE (BEAKER) (test Negative code = 583) URINALYSIS W/ [id number] 18:49:00 Test Item Value Reference Range Interpretation [...] SOURCE(BEAKER) (test code = 2795) BASIC METABOLIC [id number] 18:44:00 Test Item Value Reference Range Interpretation [...] S NOT APPLICABLE FOR DIALYSIS PATIEN TS. Product Development Assistant ID - GORDON, CHEST, 1 VIEW, NON [id number] 18:41:00Reason for exam:->COUGHReason for exam:->SHORTNESS OF BREATHReason [...] No acute cardiopulmonary abnormality. Signed: Vandana Edwards MDReport Verified Date/Time: 10/12/2019 18:41:43 Electronically signed by: VANDANA EDWARDS MD on10/12/2019 06:41 PMCBC W/PLT COUNT & AUTO [id number] 18:29:00 Test Item Value Reference Range Interpretation [...] PERCENT (BEAKER) (test code = 2801) CT, [id number] 16:47:00Reason for exam:->FEVERReason for exam:->LEG PAINIs the [...] MDReport Verified Date/Time: 02/15/2019 16:47:32 Reading Location: [address] Reading Room URINALYSIS W/ [id number] 15:41:00 Test Item Value Reference Range Interpretation [...] 1663) SOURCE(BEAKER) (test code = 2795) SCREEN, [id number] 15:29:00 Test Item Value Reference Range Interpretation Comments TEST URINE (BEAKER) (test Negative code = 583) COMPREHENSIVE METABOLIC [id number] 15:26:00 Test Item Value Reference Range Interpretation [...] S NOT APPLICABLE FOR DIALYSIS PATIEN TS. [id number] 15:26:00 Test Item Value Reference Range Interpretation Comments LIPASE (BEAKER) (test code = 749) 20 U/L 6-51 [id number] 15:17:00 Test Item Value Reference Range Interpretation Comments AMYLASE (BEAKER) (test 42 U/L 30-110 Speci men slightly code = 349) hemolyzed CBC W/PLT COUNT & AUTO [id number] 15:03:00 Test Item Value Reference Range Interpretation [...] = 2801) RAD, KNEE, COMPLETE (4 VIEWS), [id number] 23:20:00Reason for exam:->MOTOR VEHICLE CRASHReason for exam:->HIP [...] in the left knee. Signed: Priti Friedman [facility] Verified Date/Time: 11/19/2018 23:20:49 Reading Location: [facility] B1 C013Y CT Body Reading Room RAD, KNEE, COMPLETE (4 VIEWS), [id number] 23:20:00Reason for exam:- >MOTOR VEHICLE CRASHReason for [...] Friedman Verified Date/Time: 11/19/2018 23:20:49 Reading Location: [facility] B1 C013Y [address] Body Reading Room RAD, HIP, 2 VIEWS, [id number] 23:06:00Reason for exam:->MOTOR VEHICLE CRASHReason for exam:->HIP PAINReason for exam:->ARM INJURYReason for exam:->SHOULDER INJURYFINAL REPORT Right hip series, 2 views Clinical Indication: Right Hip Pain Impression: No evidence of acute fracture or traumatic malalignment. Note: If occult injury is suspected,consider CT. Signed: Brian Garibay Verified Date/Time: 11/19/2018 23:06:27 Reading Location:[address] Reading [address] CT, [id number] 22:44:00Reason for exam:->MOTOR VEHICLE CRASHReason for exam:->HIP [...] Alcantara Verified Date/Time: 11/19/2018 22:44:18 Reading Location: [address] Reading Room RAD, SHOULDER, COMPLETE (MIN 2 VIEWS), [id number] 22:41:00Reason for exam:->MOTOR VEHICLE CRASHReason for exam:->HIP PAINReason for exam:->ARM INJURYReason for exam:->SHOULDER INJURYFINAL REPORT Right shoulder series - 3 VIEWS Clinical Indication: Right shoulder pain following traumatic injury. Impression: No evidence of acute fracture or traumatic malalignment. Signed: Brian Garibay Verified Date/Time: 11/19/2018 22:41:16 Reading Location: [address] Reading Room URINALYSIS W/ [id number] 21:44:00 Test Item Value Reference Range Interpretation [...] 1663) SOURCE(BEAKER) (test code = 2795) SCREEN, [id number] 21:40:00 Test Item Value Reference Range Interpretation Comments TEST URINE (BEAKER) (test Negative code = 583) URINALYSIS W/ [id number] 21:41:00 Test Item Value Reference Range Interpretation [...] 1663) SOURCE(BEAKER) (test code = 2795) SCREEN, [id number] 21:37:00 Test Item Value Reference Range Interpretation Comments TEST URINE (BEAKER) (test Negative code = 583) RAPID INFLUENZA A&B [id number] 20:49:00 Test Item Value Reference Range Interpretation Comments RAPID INFLUENZA A AG (BEAKER) Negative Negative, Inconclusive (test code = 1622) RAPID INFLUENZA B AG (BEAKER) Negative Negative, Inconclusive (test code = 1623) CT, [id number] 08:31:00Reason for exam:->ABDOMINAL PAINReason for exam:->FEVERReason for [...] MDReport Verified Date/Time: 07/31/2017 08:31:14 Reading Location: [facility] Diagnostic Imaging Reading Room - [place] [address] RAD, CHEST, 1 VIEW, NON [id number] 08:23:00Reason for exam:->ABDOMINAL PAINReason for exam:->FEVERReason for exam:->ORAL PAINShould this be performed at the bedside?->YesFINAL REPORT Chest, portable AP view History: Fever, pain Comparison: 03/25/2017 IMPRESSION: The cardiomediastinal silhouette and pulmonary vasculature are within normal limits. The lungs are clear without evidence of consolidation or effusion. There are no acute osseous abnormalities. The soft tissues are unremarkable. Signed: Bladimir Arellanoort Verified Date/Time: 07/31/2017 08:23:48 Reading Location: [address] Radiology Reading Room [id number] 08:07:00 Test Item Value Reference Range Interpretation Comments LIPASE (BEAKER) (test code = 749) 34 U/L 6-51 URINALYSIS W/ REFLEX URINE [id number] 08:06:00 Test Item Value Reference Range Interpretation [...] SOURCE(BEAKER) (test code = 2795) COMPREHENSIVE METABOLIC [id number] 08:06:00 Test Item Value Reference Range Interpretation [...] S NOT APPLICABLE FOR DIALYSIS PATIEN TS. [id number] 07:58:00 Test Item Value Reference Range Interpretation Comments AMYLASE (BEAKER) (test code = 349) 52 U/L 30-110 SCREEN, [id number] 07:52:00 Test Item Value Reference Range Interpretation Comments TEST URINE (BEAKER) (test Negative code = 583) CBC W/PLT COUNT & AUTO [id number] 07:48:00 Test Item Value Reference Range Interpretation [...] 0.00-0.20 (test code = 417) BASIC METABOLIC [id number] 21:32:00 Test Item Value Reference Range Interpretation [...] DIALYSIS PATIEN TS. LACTIC ACID, VENOUS, WHOLE [id number] 21:19:00 Test Item Value Reference Range Interpretation Comments LACTATE BLOOD VENOUS 0.9 mmol/L 0.5-2.2 Specime n slightly (2) (BEAKER) (test hemolyzed code = 2872) Effective 12/15/2015: Units/Reference Range ChangeNew: 0.5-2.2 mmol/L Previous: 5- 18 mg/dLCBC W/PLT COUNT & AUTO [id number] 21:07:00 Test Item Value Reference Range Interpretation [...] L 0.00-0.20 (test code = 417) SCREEN, [id number] 18:50:00 Test Item Value Reference Range Interpretation Comments TEST URINE (BEAKER) (test Negative code = 583) URINE [id number] 09:20:00 Test Item Value Reference Range Interpretation [...] = 480) CBC W/PLT COUNT & AUTO [id number] 16:52:00 Test Item Value Reference Range Interpretation [...] 0.00-0.20 (test code = 417) COMPREHENSIVE METABOLIC [id number] 16:28:00 Test Item Value Reference Range Interpretation [...] S NOT APPLICABLE FOR DIALYSIS PATIEN TS. [id number] 16:22:00 Test Item Value Reference Range Interpretation Comments LIPASE (BEAKER) (test code = 749) 26 U/L 6-51 URINALYSIS W/ REFLEX URINE [id number] 15:52:00 Test Item Value Reference Range Interpretation [...] 1663) SOURCE(BEAKER) (test code = 2795) SCREEN, [id number] 15:49:00 Test Item Value Reference Range Interpretation Comments TEST URINE (BEAKER) (test Negative code = 583) URINE AND [id number] 08:40:00 Test Item Value Reference Range Interpretation Comments UA Leuk Est (test code Trace *ABN*(02/13/16 3:40 = UA Leuk Est) AM) [facility] AND [id number] 08:40:00 Test Item Value Reference Range Interpretation Comments UA Nitrite (test code Negative (02/13/16 3:40 = UA Nitrite) AM) [facility] AND [id number] 08:40:00 Test Item Value Reference Range Interpretation Comments UA Urobilinogen (test code = UA 0.2 0.1-1.0 Urobilinogen) [facility] AND [id number] 08:40:00 Test Item Value Reference Range Interpretation Comments UA Ketones (test code Negative *NA*(02/13/16 = UA Ketones) 3:40 AM) [facility] AND [id number] 08:40:00 Test Item Value Reference Range Interpretation Comments UA Glucose (test code Negative (02/13/16 3:40 = UA Glucose) AM) [facility] AND [id number] 08:40:00 Test Item Value Reference Range Interpretation Comments UA Blood (test code = Large *ABN*(02/13/16 UA Blood) 3:40 AM) [facility] AND [id number] 08:40:00 Test Item Value Reference Range Interpretation Comments UA Bili (test code = Negative *NA*(02/13/16 UA Bili) 3:40 AM) [facility] AND [id number] 08:40:00 Test Item Value Reference Range Interpretation Comments UA Protein (test code = UA Protein) 30 mg/dL [facility] AND [id number] 08:40:00 Test Item Value Reference Range Interpretation Comments UA Spec Grav (test code = UA Spec 1.015 1 Grav) [facility] AND [id number] 08:40:00 Test Item Value Reference Range Interpretation Comments UA pH (test code = UA pH) 7.0 1 5.0-8.0 [facility] AND [id number] 08:40:00 Test Item Value Reference Range Interpretation Comments UA Color (test code = Red *ABN*(02/13/16 3:40 UA Color) AM) [facility] AND [id number] 08:40:00 Test Item Value Reference Range Interpretation Comments UA Turbidity (test code Bloody *ABN*(02/13/16 = UA Turbidity) 3:40 AM) [facility] AND [id number] 08:40:00 Test Item Value Reference Range Interpretation Comments UA Bacteria (test code = UA Occasional /HPF Bacteria) [facility] AND [id number] 08:40:00 Test Item Value Reference Range Interpretation Comments UA RBC (test Packed See_Comment [Automated mes shirley] code = UA RBC) *ABN*(02/13/16 3:40 The syst em which AM) generated this result transmitted ref erence range: <=2. The reference range was not used to int erpret this result as normal/abnormal . [facility] AND [id number] 08:40:00 Test Item Value Reference Range Interpretation Comments UA WBC (test code = UA WBC) 3-5 /HPF [facility] AND [id number] 08:40:00 Test Item Value Reference Range Interpretation Comments UA Sq Epi (test code = UA Sq Epi) Rare /LPF [facility] AND [id number] 08:40:00 Test Item Value Reference Range Interpretation Comments UA Leuk Est (test code Trace *ABN*(02/13/16 3:40 = UA Leuk Est) AM) [facility] AND [id number] 08:40:00 Test Item Value Reference Range Interpretation Comments UA Nitrite (test code Negative (02/13/16 3:40 = UA Nitrite) AM) [facility] AND [id number] 08:40:00 Test Item Value Reference Range Interpretation Comments UA Urobilinogen (test code = UA 0.2 0.1-1.0 Urobilinogen) [facility] AND [id number] 08:40:00 Test Item Value Reference Range Interpretation Comments UA Ketones (test code Negative *NA*(02/13/16 = UA Ketones) 3:40 AM) [facility] AND [id number] 08:40:00 Test Item Value Reference Range Interpretation Comments UA Glucose (test code Negative (02/13/16 3:40 = UA Glucose) AM) [facility] AND [id number] 08:40:00 Test Item Value Reference Range Interpretation Comments UA Blood (test code = Large *ABN*(02/13/16 UA Blood) 3:40 AM) [facility] AND [id number] 08:40:00 Test Item Value Reference Range Interpretation Comments UA Bili (test code = Negative *NA*(02/13/16 UA Bili) 3:40 AM) [facility] AND [id number] 08:40:00 Test Item Value Reference Range Interpretation Comments UA Protein (test code = UA Protein) 30 mg/dL [facility] AND [id number] 08:40:00 Test Item Value Reference Range Interpretation Comments UA Spec Grav (test code = UA Spec 1.015 1 Grav) [facility] AND [id number] 08:40:00 Test Item Value Reference Range Interpretation Comments UA pH (test code = UA pH) 7.0 1 5.0-8.0 [facility] AND [id number] 08:40:00 Test Item Value Reference Range Interpretation Comments UA Color (test code = Red *ABN*(02/13/16 3:40 UA Color) AM) [facility] AND [id number] 08:40:00 Test Item Value Reference Range Interpretation Comments UA Turbidity (test code Bloody *ABN*(02/13/16 = UA Turbidity) 3:40 AM) [facility] AND [id number] 08:40:00 Test Item Value Reference Range Interpretation Comments UA Bacteria (test code = UA Occasional /HPF Bacteria) [facility] AND [id number] 08:40:00 Test Item Value Reference Range Interpretation Comments UA RBC (test Packed See_Comment [Automated mes shirley] code = UA RBC) *ABN*(02/13/16 3:40 The syst em which AM) generated this result transmitted ref erence range: <=2. The reference range was not used to int erpret this result as normal/abnormal . [facility] AND [id number] 08:40:00 Test Item Value Reference Range Interpretation Comments UA WBC (test code = UA WBC) 3-5 /HPF [facility] AND [id number] 08:40:00 Test Item Value Reference Range Interpretation Comments UA Sq Epi (test code = UA Sq Epi) Rare /LPF [facility] AND [id number] 08:40:00 Test Item Value Reference Range Interpretation Comments UA Leuk Est (test code Trace *ABN*(02/13/16 3:40 = UA Leuk Est) AM) [facility] AND [id number] 08:40:00 Test Item Value Reference Range Interpretation Comments UA Nitrite (test code Negative (02/13/16 3:40 = UA Nitrite) AM) [facility] AND [id number] 08:40:00 Test Item Value Reference Range Interpretation Comments UA Urobilinogen (test code = UA 0.2 0.1-1.0 Urobilinogen) [facility] AND [id number] 08:40:00 Test Item Value Reference Range Interpretation Comments UA Ketones (test code Negative *NA*(02/13/16 = UA Ketones) 3:40 AM) [facility] AND [id number] 08:40:00 Test Item Value Reference Range Interpretation Comments UA Glucose (test code Negative (02/13/16 3:40 = UA Glucose) AM) [facility] AND [id number] 08:40:00 Test Item Value Reference Range Interpretation Comments UA Blood (test code = Large *ABN*(02/13/16 UA Blood) 3:40 AM) [facility] AND [id number] 08:40:00 Test Item Value Reference Range Interpretation Comments UA Bili (test code = Negative *NA*(02/13/16 UA Bili) 3:40 AM) [facility] AND [id number] 08:40:00 Test Item Value Reference Range Interpretation Comments UA Protein (test code = UA Protein) 30 mg/dL [facility] AND [id number] 08:40:00 Test Item Value Reference Range Interpretation Comments UA Spec Grav (test code = UA Spec 1.015 1 Grav) [facility] AND [id number] 08:40:00 Test Item Value Reference Range Interpretation Comments UA pH (test code = UA pH) 7.0 1 5.0-8.0 [facility] AND [id number] 08:40:00 Test Item Value Reference Range Interpretation Comments UA Color (test code = Red *ABN*(02/13/16 3:40 UA Color) AM) [facility] AND [id number] 08:40:00 Test Item Value Reference Range Interpretation Comments UA Turbidity (test code Bloody *ABN*(02/13/16 = UA Turbidity) 3:40 AM) [facility] AND [id number] 08:40:00 Test Item Value Reference Range Interpretation Comments UA Bacteria (test code = UA Occasional /HPF Bacteria) [facility] AND [id number] 08:40:00 Test Item Value Reference Range Interpretation Comments UA RBC (test Packed See_Comment [Automated mes shirley] code = UA RBC) *ABN*(02/13/16 3:40 The syst em which AM) generated this result transmitted ref erence range: <=2. The reference range was not used to int erpret this result as normal/abnormal . [facility] AND [id number] 08:40:00 Test Item Value Reference Range Interpretation Comments UA WBC (test code = UA WBC) 3-5 /HPF [facility] AND [id number] 08:40:00 Test Item Value Reference Range Interpretation Comments UA Sq Epi (test code = UA Sq Epi) Rare /LPF [facility] AND [id number] 08:40:00 Test Item Value Reference Range Interpretation Comments UA Leuk Est (test code Trace *ABN*(02/13/16 3:40 = UA Leuk Est) AM) [facility] AND [id number] 08:40:00 Test Item Value Reference Range Interpretation Comments UA Nitrite (test code Negative (02/13/16 3:40 = UA Nitrite) AM) [facility] AND [id number] 08:40:00 Test Item Value Reference Range Interpretation Comments UA Urobilinogen (test code = UA 0.2 0.1-1.0 Urobilinogen) [facility] AND [id number] 08:40:00 Test Item Value Reference Range Interpretation Comments UA Ketones (test code Negative *NA*(02/13/16 = UA Ketones) 3:40 AM) [facility] AND [id number] 08:40:00 Test Item Value Reference Range Interpretation Comments UA Glucose (test code Negative (02/13/16 3:40 = UA Glucose) AM) [facility] AND [id number] 08:40:00 Test Item Value Reference Range Interpretation Comments UA Blood (test code = Large *ABN*(02/13/16 UA Blood) 3:40 AM) [facility] AND [id number] 08:40:00 Test Item Value Reference Range Interpretation Comments UA Bili (test code = Negative *NA*(02/13/16 UA Bili) 3:40 AM) [facility] AND [id number] 08:40:00 Test Item Value Reference Range Interpretation Comments UA Protein (test code = UA Protein) 30 mg/dL [facility] AND [id number] 08:40:00 Test Item Value Reference Range Interpretation Comments UA Spec Grav (test code = UA Spec 1.015 1 Grav) [facility] AND [id number] 08:40:00 Test Item Value Reference Range Interpretation Comments UA pH (test code = UA pH) 7.0 1 5.0-8.0 [facility] AND [id number] 08:40:00 Test Item Value Reference Range Interpretation Comments UA Color (test code = Red *ABN*(02/13/16 3:40 UA Color) AM) [facility] AND [id number] 08:40:00 Test Item Value Reference Range Interpretation Comments UA Turbidity (test code Bloody *ABN*(02/13/16 = UA Turbidity) 3:40 AM) [facility] AND [id number] 08:40:00 Test Item Value Reference Range Interpretation Comments UA Bacteria (test code = UA Occasional /HPF Bacteria) [facility] AND [id number] 08:40:00 Test Item Value Reference Range Interpretation Comments UA RBC (test Packed See_Comment [Automated mes shirley] code = UA RBC) *ABN*(02/13/16 3:40 The syst em which AM) generated this result transmitted ref erence range: <=2. The reference range was not used to int erpret this result as normal/abnormal . [facility] AND [id number] 08:40:00 Test Item Value Reference Range Interpretation Comments UA WBC (test code = UA WBC) 3-5 /HPF [facility] AND [id number] 08:40:00 Test Item Value Reference Range Interpretation Comments UA Sq Epi (test code = UA Sq Epi) Rare /LPF [facility] AND [id number] 08:40:00 Test Item Value Reference Range Interpretation Comments UA Leuk Est (test code Trace *ABN*(02/13/16 3:40 = UA Leuk Est) AM) [facility] AND [id number] 08:40:00 Test Item Value Reference Range Interpretation Comments UA Nitrite (test code Negative (02/13/16 3:40 = UA Nitrite) AM) [facility] AND [id number] 08:40:00 Test Item Value Reference Range Interpretation Comments UA Urobilinogen (test code = UA 0.2 0.1-1.0 Urobilinogen) [facility] AND [id number] 08:40:00 Test Item Value Reference Range Interpretation Comments UA Ketones (test code Negative *NA*(02/13/16 = UA Ketones) 3:40 AM) [facility] AND [id number] 08:40:00 Test Item Value Reference Range Interpretation Comments UA Glucose (test code Negative (02/13/16 3:40 = UA Glucose) AM) [facility] AND [id number] 08:40:00 Test Item Value Reference Range Interpretation Comments UA Blood (test code = Large *ABN*(02/13/16 UA Blood) 3:40 AM) [facility] AND [id number] 08:40:00 Test Item Value Reference Range Interpretation Comments UA Bili (test code = Negative *NA*(02/13/16 UA Bili) 3:40 AM) [facility] AND [id number] 08:40:00 Test Item Value Reference Range Interpretation Comments UA Protein (test code = UA Protein) 30 mg/dL [facility] AND [id number] 08:40:00 Test Item Value Reference Range Interpretation Comments UA Spec Grav (test code = UA Spec 1.015 1 Grav) [facility] AND [id number] 08:40:00 Test Item Value Reference Range Interpretation Comments UA pH (test code = UA pH) 7.0 1 5.0-8.0 [facility] AND [id number] 08:40:00 Test Item Value Reference Range Interpretation Comments UA Color (test code = Red *ABN*(02/13/16 3:40 UA Color) AM) [facility] AND [id number] 08:40:00 Test Item Value Reference Range Interpretation Comments UA Turbidity (test code Bloody *ABN*(02/13/16 = UA Turbidity) 3:40 AM) [facility] AND [id number] 08:40:00 Test Item Value Reference Range Interpretation Comments UA Bacteria (test code = UA Occasional /HPF Bacteria) [facility] AND [id number] 08:40:00 Test Item Value Reference Range Interpretation Comments UA RBC (test Packed See_Comment [Automated mes shirley] code = UA RBC) *ABN*(02/13/16 3:40 The syst em which AM) generated this result transmitted ref erence range: <=2. The reference range was not used to int erpret this result as normal/abnormal . [facility] AND [id number] 08:40:00 Test Item Value Reference Range Interpretation Comments UA WBC (test code = UA WBC) 3-5 /HPF [facility] AND [id number] 08:40:00 Test Item Value Reference Range Interpretation Comments UA Sq Epi (test code = UA Sq Epi) Rare /LPF [facility] AND [id number] 08:40:00 Test Item Value Reference Range Interpretation Comments UA Leuk Est (test code Trace *ABN*(02/13/16 3:40 = UA Leuk Est) AM) [facility] AND [id number] 08:40:00 Test Item Value Reference Range Interpretation Comments UA Nitrite (test code Negative (02/13/16 3:40 = UA Nitrite) AM) [facility] AND [id number] 08:40:00 Test Item Value Reference Range Interpretation Comments UA Urobilinogen (test code = UA 0.2 0.1-1.0 Urobilinogen) [facility] AND [id number] 08:40:00 Test Item Value Reference Range Interpretation Comments UA Ketones (test code Negative *NA*(02/13/16 = UA Ketones) 3:40 AM) [facility] AND [id number] 08:40:00 Test Item Value Reference Range Interpretation Comments UA Glucose (test code Negative (02/13/16 3:40 = UA Glucose) AM) [facility] AND [id number] 08:40:00 Test Item Value Reference Range Interpretation Comments UA Blood (test code = Large *ABN*(02/13/16 UA Blood) 3:40 AM) [facility] AND [id number] 08:40:00 Test Item Value Reference Range Interpretation Comments UA Bili (test code = Negative *NA*(02/13/16 UA Bili) 3:40 AM) [facility] AND [id number] 08:40:00 Test Item Value Reference Range Interpretation Comments UA Protein (test code = UA Protein) 30 mg/dL [facility] AND [id number] 08:40:00 Test Item Value Reference Range Interpretation Comments UA Spec Grav (test code = UA Spec 1.015 1 Grav) [facility] AND [id number] 08:40:00 Test Item Value Reference Range Interpretation Comments UA pH (test code = UA pH) 7.0 1 5.0-8.0 [facility] AND [id number] 08:40:00 Test Item Value Reference Range Interpretation Comments UA Color (test code = Red *ABN*(02/13/16 3:40 UA Color) AM) [facility] AND [id number] 08:40:00 Test Item Value Reference Range Interpretation Comments UA Turbidity (test code Bloody *ABN*(02/13/16 = UA Turbidity) 3:40 AM) [facility] AND [id number] 08:40:00 Test Item Value Reference Range Interpretation Comments UA Bacteria (test code = UA Occasional /HPF Bacteria) [facility] AND [id number] 08:40:00 Test Item Value Reference Range Interpretation Comments UA RBC (test Packed See_Comment [Automated mes shirley] code = UA RBC) *ABN*(02/13/16 3:40 The syst em which AM) generated this result transmitted ref erence range: <=2. The reference range was not used to int erpret this result as normal/abnormal . [facility] AND [id number] 08:40:00 Test Item Value Reference Range Interpretation Comments UA WBC (test code = UA WBC) 3-5 /HPF [facility] [id number] 08:40:00 Test Item Value Reference Range Interpretation Comments UA Sq Epi (test code = UA Sq Epi) Rare /LPF [facility] [employer] [id number] 06:44:00 Test Item Value Reference Range Interpretation Comments Antibody Scrn (test Negative (02/13/16 1:44 code = Antibody Scrn) AM) [employer] [id number] 06:44:00 Test Item Value Reference Range Interpretation Comments ABO/Rh (test code = ABO/Rh) A POS Filtr8 [id number] 06:44:00 Test Item Value Reference Range Interpretation Comments CK MB Index (test 1.6 See_Comment [Automate d message] The code = CK MB Index) system w [facility] generated this result transmit gaye reference range : <=2.5. The reference range was not used to interpr et this result as satish l/abnormal. Filtr8 [id number] 06:44:00 Test Item Value Reference Range Interpretation Comments CK MB (test code = CK MB) 0.9 0.5-3.6 [facility] [employer] [id number] 06:44:00 Test Item Value Reference Range Interpretation Comments Total CK (test code = Total CK) 57 12-191 [facility] [employer] [id number] 06:44:00 Test Item Value Reference Range Interpretation Comments Troponin-I (test code no gt See_Comment [Auto mated message] The = Troponin-I) system which g enerated this result transmit gaye reference range : <=0.40. The reference r ozzy was not used to interpr et this result as satish l/abnormal. [employer] [id number] 06:44:00 Test Item Value Reference Range Interpretation Comments Albumin Lvl (test code = Albumin Lvl) 3.5 3.5-5.0 [employer] [id number] 06:44:00 Test Item Value Reference Range Interpretation Comments Total Protein (test code = Total 7.0 6.4-8.4 Protein) [facility]2016-07-03 06:44:00 Test Item Value Reference Range Interpretation Comments ALT (test code = ALT) 19 See_Comment [Auto mated message] The system which ge nerated this result transmit gaye reference range : <=65. The reference range was not used to interpr et this result as satish l/abnormal. [place] [id number] 06:44:00 Test Item Value Reference Range Interpretation Comments AST (test code = AST) 10 See_Comment [Auto mated message] The system which ge nerated this result transmit gaye reference range : <=37. The reference range was not used to interpr et this result as satish l/abnormal. [facility] [id number] 06:44:00 Test Item Value Reference Range Interpretation Comments Alk Phos (test code = Alk Phos) 79 39-136 [place] [id number] 06:44:00 Test Item Value Reference Range Interpretation Comments Bili Total (test code = Bili Total) 0.4 0.2-1.3 [place] [id number] 06:44:00 Test Item Value Reference Range Interpretation Comments Bili Direct (test code 0.1 See_Comment [Aut omated message] The = Bili Direct) system which generated this result tra nsmitted reference range : <=0.3. The reference r ozzy was not used to int erpret this result as satish l/abnormal. [facility]2016-07-03 06:44:00 Test Item Value Reference Range Interpretation Comments Globulin (test code = Globulin) 3.5 2.0-4.0 [facility] [id number] 06:44:00 Test Item Value Reference Range Interpretation Comments A/G Ratio (test code = A/G Ratio) 1.0 0.7-1.6 [facility] [id number] 06:44:00 Test Item Value Reference Range Interpretation Comments Bili Indirect (test 0.3 See_Comment [Automa gaye message] The code = Bili Indirect) system which generated this result tra nsmitted reference range : <=1.0. The reference r ozzy was not used to int erpret this result as normal/abnormal . [facility] [id number] 06:44:00 Test Item Value Reference Range Interpretation Comments eGFR (test code = eGFR) 107 [facility]2016-07-03 06:44:00 Test Item Value Reference Range Interpretation Comments BUN (test code = BUN) 8 7-22 [facility]2016-07-03 06:44:00 Test Item Value Reference Range Interpretation Comments Glucose Lvl (test code = Glucose Lvl) 91 70-99 [facility]2016-07-03 06:44:00 Test Item Value Reference Range Interpretation Comments Sodium Lvl (test code = Sodium Lvl) 138 135-145 [facility]2016-07-03 06:44:00 Test Item Value Reference Range Interpretation Comments Creatinine Lvl (test code = Creatinine 0.70 0.50-1.40 Lvl) [facility]2016-07-03 06:44:00 Test Item Value Reference Range Interpretation Comments Potassium Lvl (test code = Potassium 3.3 3.5-5.1 Lvl) [facility]2016-07-03 06:44:00 Test Item Value Reference Range Interpretation Comments CO2 (test code = CO2) 25 24-32 [facility]2016-07-03 06:44:00 Test Item Value Reference Range Interpretation Comments Chloride Lvl (test code = Chloride Lvl) 106 95-109 [facility]2016-07-03 06:44:00 Test Item Value Reference Range Interpretation Comments Calcium Lvl (test code = Calcium Lvl) 8.1 8.5-10.5 [facility]2016-07-03 06:44:00 Test Item Value Reference Range Interpretation Comments AGAP (test code = AGAP) 10.3 10.0-20.0 [facility]2016-07-03 06:44:00 Test Item Value Reference Range Interpretation Comments Magnesium Lvl (test code = Magnesium 2.2 1.8-2.4 Lvl) [id number] 06:44:00 Test Item Value Reference Range Interpretation Comments S Preg (test code = S Negative *NA*(02/13/16 Preg) 1:44 AM) [id number] 06:44:00 Test Item Value Reference Range Interpretation Comments Basophils (test code = 0.1 See_Comment [Aut omated message] The Basophils) system which ge nerated this result tra nsmitted reference range : <=1.0. The reference r ozzy was not used to int erpret this result as normal/abnormal . [facility] CampusYyrklbkNFMZECERNE8330-49-30 06:44:00 Test Item Value Reference Range Interpretation Comments Monocytes # (test code 0.3 See_Comment [Aut omated message] The = Monocytes #) system which generated this result tra nsmitted reference range : <=0.8. The reference r ozzy was not used to int erpret this result as normal/abnormal . [facility] CampusJntrmclRHWEWTVTLF8245-03-88 06:44:00 Test Item Value Reference Range Interpretation Comments Eosinophils # (test code 0.1 See_Comment [A utomated message] The = Eosinophils #) system whic h generated this result tra nsmitted reference range : <=0.5. The reference r ozzy was not used to int erpret this result as normal/abnormal . [facility] CampusItixvfoEHGPDMOKXQ8555-63-34 06:44:00 Test Item Value Reference Range Interpretation Comments Segs-Bands # (test code = Segs-Bands #) 9.3 1.5-8.1 [facility] CampusVmrqabpQQJENMVCHV6837-80-68 06:44:00 Test Item Value Reference Range Interpretation Comments Lymphocytes # (test code = Lymphocytes 2.6 1.0-5.5 #) [facility] CampusUtunndlUNNYAOIZVX1526-88-39 06:44:00 Test Item Value Reference Range Interpretation Comments Basophils # (test code 0.0 See_Comment [Aut omated message] The = Basophils #) system which generated this result tra nsmitted reference range : <=0.2. The reference r ozzy was not used to int erpret this result as normal/abnormal . [facility] CampusNzghplmJPEDLJJUSZ6224-82-74 06:44:00 Test Item Value Reference Range Interpretation Comments Microcyte (test code = 1+ *ABN*(02/13/16 1:44 Microcyte) AM) [facility] CampusDiuflkkYYZEUYTAZU6760-21-78 06:44:00 Test Item Value Reference Range Interpretation Comments Giant Plt (test code Moderate *ABN*(02/13/16 = Giant Plt) 1:44 AM) [facility] CampusClaklszXVIZWQCYNM4963-64-78 06:44:00 Test Item Value Reference Range Interpretation Comments Segs (test code = Segs) 75.2 45.0-75.0 [facility] CampusUkiozdmICLDUUAKPH8615-04-27 06:44:00 Test Item Value Reference Range Interpretation Comments Hypochrom (test code = 1+ (02/13/16 1:44 AM) Hypochrom) [facility] CampusXpkjakdTQPCCBRPSK3405-01-70 06:44:00 Test Item Value Reference Range Interpretation Comments Eosinophils (test code = 0.7 See_Comment [A utomated message] The Eosinophils) system which ge nerated this result tra nsmitted reference range : <=4.0. The reference r ozzy was not used to int erpret this result as normal/abnormal . [facility] CampusWeqnzbuCXAWTOWQPG2111-34-36 06:44:00 Test Item Value Reference Range Interpretation Comments Lymphocytes (test code = Lymphocytes) 21.3 20.0-40.0 [facility] CampusWkfmaskMUVWGGVLSN1889-70-60 06:44:00 Test Item Value Reference Range Interpretation Comments Monocytes (test code = Monocytes) 2.7 2.0-12.0 [facility] CampusTvlftmjKAPTAHESOG2271-06-91 06:44:00 Test Item Value Reference Range Interpretation Comments MPV (test code = MPV) 9.5 7.4-10.4 [facility] CampusCqfpydoVBHUTJCEHM7544-58-70 06:44:00 Test Item Value Reference Range Interpretation Comments Eosinophils # (test code 0.1 See_Comment [A utomated message] The = Eosinophils #) system whic h generated this result tra nsmitted reference range : <=0.5. The reference r ozzy was not used to int erpret this result as normal/abnormal . [facility] CampusJkrrffyPJKNFAIYXL7070-10-04 06:44:00 Test Item Value Reference Range Interpretation Comments Segs-Bands # (test code = Segs-Bands #) 9.3 1.5-8.1 [facility] CampusGumqbxqVWBIPQWJPC1379-20-96 06:44:00 Test Item Value Reference Range Interpretation Comments Lymphocytes # (test code = Lymphocytes 2.6 1.0-5.5 #) [facility] CampusOjmzymkODCJVQYNJO7263-27-68 06:44:00 Test Item Value Reference Range Interpretation Comments Basophils # (test code 0.0 See_Comment [Aut omated message] The = Basophils #) system which generated this result tra nsmitted reference range : <=0.2. The reference r ozzy was not used to int erpret this result as normal/abnormal . [facility] CampusNvihjtsUDAKIONGWM0055-50-06 06:44:00 Test Item Value Reference Range Interpretation Comments Microcyte (test code = 1+ *ABN*(02/13/16 1:44 Microcyte) AM) [facility] CampusQhmnxbvTCMQBNAAMZ7428-31-95 06:44:00 Test Item Value Reference Range Interpretation Comments Giant Plt (test code Moderate *ABN*(02/13/16 = Giant Plt) 1:44 AM) [facility] CampusLlbtcggGDZCJIOCTP0320-81-30 06:44:00 Test Item Value Reference Range Interpretation Comments Segs (test code = Segs) 75.2 45.0-75.0 [facility] CampusEnyxjzfJMWJIHOMMQ5816-76-79 06:44:00 Test Item Value Reference Range Interpretation Comments Hypochrom (test code = 1+ (02/13/16 1:44 AM) Hypochrom) [facility] CampusIevnnlcSCSSPKIEUX8258-34-23 06:44:00 Test Item Value Reference Range Interpretation Comments Eosinophils (test code = 0.7 See_Comment [A utomated message] The Eosinophils) system which ge nerated this result tra nsmitted reference range : <=4.0. The reference r ozzy was not used to int erpret this result as normal/abnormal . [facility] CampusRegpqzfDNVIRJJVCO8694-13-73 06:44:00 Test Item Value Reference Range Interpretation Comments Lymphocytes (test code = Lymphocytes) 21.3 20.0-40.0 [facility] CampusDwbuxtqRAZEFYKDJP2885-74-69 06:44:00 Test Item Value Reference Range Interpretation Comments Monocytes (test code = Monocytes) 2.7 2.0-12.0 [facility] CampusDngzwbuSSPROUUKBD8768-31-09 06:44:00 Test Item Value Reference Range Interpretation Comments MPV (test code = MPV) 9.5 7.4-10.4 [facility] CampusPsnoquiEKZCVAJOZX6556-78-54 06:44:00 Test Item Value Reference Range Interpretation Comments RDW (test code = RDW) 17.8 11.5-14.5 [facility] CampusBwjrokhUSSHHVGCJU8001-58-89 06:44:00 Test Item Value Reference Range Interpretation Comments MCV (test code = MCV) 73.2 80.0-98.0 [facility] CampusUuneldbYOKIAAZSSO0438-79-63 06:44:00 Test Item Value Reference Range Interpretation Comments MCH (test code = MCH) 21.9 pg 27.0-31.0 [facility] CampusZnitsplYJMVUWTHJY1442-85-98 06:44:00 Test Item Value Reference Range Interpretation Comments Hct (test code = Hct) 27.2 36.0-48.0 [facility] CampusWtwvyoiBQFVMLAJKV2687-28-06 06:44:00 Test Item Value Reference Range Interpretation Comments MCHC (test code = MCHC) 29.9 32.0-36.0 [facility] CampusSckhgnuDUXJAOTQZQ6762-71-85 06:44:00 Test Item Value Reference Range Interpretation Comments Platelet (test code = Platelet) 400 133-450 [facility] CampusUqoqsbbHJQULMZMOV0024-35-58 06:44:00 Test Item Value Reference Range Interpretation Comments WBC (test code = WBC) 12.4 3.7-10.4 [facility] CampusHvdnmaaGXBKGKWXUF5913-02-24 06:44:00 Test Item Value Reference Range Interpretation Comments RBC (test code = RBC) 3.72 4.20-5.40 [facility] CampusQxjlmftVKSEHEMBZE8814-31-99 06:44:00 Test Item Value Reference Range Interpretation Comments Hgb (test code = Hgb) 8.1 12.0-16.0 [facility] CampusJbvqpntTXDFETXDBC7923-92-74 06:44:00 Test Item Value Reference Range Interpretation Comments RDW (test code = RDW) 17.8 11.5-14.5 [facility] CampusNgejpvrJGBRPVSBIZ2558-27-14 06:44:00 Test Item Value Reference Range Interpretation Comments PTT (test code = PTT) 27.2 s 22.9-35.8 [facility] CampusOtpznmfEBUTRCTAVE1093-00-09 06:44:00 Test Item Value Reference Range Interpretation Comments PT (test code = PT) 14.7 s 12.0-14.7 [facility] CampusUpiuqtyOSLPDLLJIH7487-76-80 06:44:00 Test Item Value Reference Range Interpretation Comments INR (test code = INR) 1.12 0.85-1.17 [facility] BANK DBDEZWG4161-40-14 06:44:00 Test Item Value Reference Range Interpretation Comments Antibody Scrn (test Negative (02/13/16 1:44 code = Antibody Scrn) AM) [facility] CampusIbdxmmpWJNEPQKGFN1261-01-80 06:44:00 Test Item Value Reference Range Interpretation Comments MCV (test code = MCV) 73.2 80.0-98.0 [facility] [employer] B[employer] GHASFNO5438-57-49 06:44:00 Test Item Value Reference Range Interpretation Comments ABO/Rh (test code = ABO/Rh) A POS [facility] [employer] DKPPLVO7345-73-15 06:44:00 Test Item Value Reference Range Interpretation Comments CK MB Index (test 1.6 See_Comment [Automate d message] The code = CK MB Index) system w [facility] generated this result transmit gaye reference range : <=2.5. The reference range was not used to interpr et this result as satish l/abnormal. [facility] [employer] HBMNJQH7762-10-11 06:44:00 Test Item Value Reference Range Interpretation Comments CK MB (test code = CK MB) 0.9 0.5-3.6 [facility] [employer] LEYQICO2432-88-29 06:44:00 Test Item Value Reference Range Interpretation Comments Total CK (test code = Total CK) 57 12-191 [facility] [employer] XIKTDNS6789-68-24 06:44:00 Test Item Value Reference Range Interpretation Comments Troponin-I (test code no gt See_Comment [Auto mated message] The = Troponin-I) system which g enerated this result transmit gaye reference range : <=0.40. The reference r ozzy was not used to interpr et this result as satish l/abnormal. [employer] [id number] 06:44:00 Test Item Value Reference Range Interpretation Comments Albumin Lvl (test code = Albumin Lvl) 3.5 3.5-5.0 [facility] [employer] MBKWB9951-11-63 06:44:00 Test Item Value Reference Range Interpretation Comments Total Protein (test code = Total 7.0 6.4-8.4 Protein) [facility] [id number] 06:44:00 Test Item Value Reference Range Interpretation Comments ALT (test code = ALT) 19 See_Comment [Auto mated message] The system which ge nerated this result transmit gaye reference range : <=65. The reference range was not used to interpr et this result as satish l/abnormal. [employer] QOWQE5257-04-32 06:44:00 Test Item Value Reference Range Interpretation Comments AST (test code = AST) 10 See_Comment [Auto mated message] The system which ge nerated this result transmit gaye reference range : <=37. The reference range was not used to interpr et this result as satish l/abnormal. [facility]2016-07-03 06:44:00 Test Item Value Reference Range Interpretation Comments Alk Phos (test code = Alk Phos) 79 39-136 [facility]2016-07-03 06:44:00 Test Item Value Reference Range Interpretation Comments Bili Total (test code = Bili Total) 0.4 0.2-1.3 [place] 035516-07-03 06:44:00 Test Item Value Reference Range Interpretation Comments Bili Direct (test code 0.1 See_Comment [Aut omated message] The = Bili Direct) system which generated this result tra nsmitted reference range : <=0.3. The reference r ozzy was not used to int erpret this result as satish l/abnormal. [place] 035516-07-03 06:44:00 Test Item Value Reference Range Interpretation Comments Globulin (test code = Globulin) 3.5 2.0-4.0 [place] 035516-07-03 06:44:00 Test Item Value Reference Range Interpretation Comments A/G Ratio (test code = A/G Ratio) 1.0 0.7-1.6 [place] 035516-07-03 06:44:00 Test Item Value Reference Range Interpretation Comments Bili Indirect (test 0.3 See_Comment [Automa gaye message] The code = Bili Indirect) system which generated this result tra nsmitted reference range : <=1.0. The reference r ozzy was not used to int erpret this result as normal/abnormal . [place] 035516-07-03 06:44:00 Test Item Value Reference Range Interpretation Comments eGFR (test code = eGFR) 107 [facility]2016-07-03 06:44:00 Test Item Value Reference Range Interpretation Comments BUN (test code = BUN) 8 7-22 [place] 035516-07-03 06:44:00 Test Item Value Reference Range Interpretation Comments Glucose Lvl (test code = Glucose Lvl) 91 70-99 [place] 035516-07-03 06:44:00 Test Item Value Reference Range Interpretation Comments Sodium Lvl (test code = Sodium Lvl) 138 135-145 [facility]2016-07-03 06:44:00 Test Item Value Reference Range Interpretation Comments Creatinine Lvl (test code = Creatinine 0.70 0.50-1.40 Lvl) [facility]2016-07-03 06:44:00 Test Item Value Reference Range Interpretation Comments Potassium Lvl (test code = Potassium 3.3 3.5-5.1 Lvl) [facility]2016-07-03 06:44:00 Test Item Value Reference Range Interpretation Comments CO2 (test code = CO2) 25 24-32 [place] 035516-07-03 06:44:00 Test Item Value Reference Range Interpretation Comments Chloride Lvl (test code = Chloride Lvl) 106 95-109 [facility]2016-07-03 06:44:00 Test Item Value Reference Range Interpretation Comments Calcium Lvl (test code = Calcium Lvl) 8.1 8.5-10.5 [facility]2016-07-03 06:44:00 Test Item Value Reference Range Interpretation Comments AGAP (test code = AGAP) 10.3 10.0-20.0 [facility]2016-07-03 06:44:00 Test Item Value Reference Range Interpretation Comments Magnesium Lvl (test code = Magnesium 2.2 1.8-2.4 Lvl) [facility]IAUBYAMMPFUW0660-17-98 06:44:00 Test Item Value Reference Range Interpretation Comments S Preg (test code = S Negative *NA*(02/13/16 Preg) 1:44 AM) [facility] CampusSzotteoCTMCCBRQXT8389-26-61 06:44:00 Test Item Value Reference Range Interpretation Comments Basophils (test code = 0.1 See_Comment [Aut omated message] The Basophils) system which ge nerated this result tra nsmitted reference range : <=1.0. The reference r ozzy was not used to int erpret this result as normal/abnormal . [facility] CampusBnwooijHGVNDAJMLD0218-27-91 06:44:00 Test Item Value Reference Range Interpretation Comments Monocytes # (test code 0.3 See_Comment [Aut omated message] The = Monocytes #) system which generated this result tra nsmitted reference range : <=0.8. The reference r ozzy was not used to int erpret this result as normal/abnormal . [facility] CampusTrrrxskFPWZXKYMXA0816-78-03 06:44:00 Test Item Value Reference Range Interpretation Comments MCH (test code = MCH) 21.9 pg 27.0-31.0 [facility] CampusMgmtjhdTMVZVWCOMK7982-51-52 06:44:00 Test Item Value Reference Range Interpretation Comments Hct (test code = Hct) 27.2 36.0-48.0 [facility] CampusZxvktdqSUNLMCLLXZ6923-80-24 06:44:00 Test Item Value Reference Range Interpretation Comments MCHC (test code = MCHC) 29.9 32.0-36.0 [facility] CampusPxhxovfUISBCPBOAM4712-01-37 06:44:00 Test Item Value Reference Range Interpretation Comments Platelet (test code = Platelet) 400 133-450 [facility] CampusOzdekhdJFQLJMECIG1001-87-72 06:44:00 Test Item Value Reference Range Interpretation Comments WBC (test code = WBC) 12.4 3.7-10.4 [facility] CampusVuzxpcsIFKVRWFJPA9503-86-25 06:44:00 Test Item Value Reference Range Interpretation Comments RBC (test code = RBC) 3.72 4.20-5.40 [facility] CampusXgipamxAFTLVTHUNN7894-35-95 06:44:00 Test Item Value Reference Range Interpretation Comments Hgb (test code = Hgb) 8.1 12.0-16.0 [facility] CampusPymnxcuFJZGVNPMUM8984-52-31 06:44:00 Test Item Value Reference Range Interpretation Comments PTT (test code = PTT) 27.2 s 22.9-35.8 [facility] CampusSwzmzklOTSSYTUITQ8546-35-72 06:44:00 Test Item Value Reference Range Interpretation Comments PT (test code = PT) 14.7 s 12.0-14.7 [facility]JylctrlPLARPSXHTB6049-90-46 06:44:00 Test Item Value Reference Range Interpretation Comments INR (test code = INR) 1.12 0.85-1.17 [id number] 06:44:00 Test Item Value Reference Range Interpretation Comments Antibody Scrn (test Negative (02/13/16 1:44 code = Antibody Scrn) AM) [facility] [id number] 06:44:00 Test Item Value Reference Range Interpretation Comments ABO/Rh (test code = ABO/Rh) A [facility] VCVBTZ[facility]57 06:44:00 Test Item Value Reference Range Interpretation Comments CK MB Index (test 1.6 See_Comment [Automate d message] The code = CK MB Index) system w [facility] generated this result transmit gaye reference range : <=2.5. The reference range was not used to interpr et this result as satish l/abnormal. [facility] [employer] RFPAQXH7212-86-17 06:44:00 Test Item Value Reference Range Interpretation Comments CK MB (test code = CK MB) 0.9 0.5-3.6 [facility] [employer] [id number] 06:44:00 Test Item Value Reference Range Interpretation Comments Total CK (test code = Total CK) 57 12-191 [facility] [employer] [id number] 06:44:00 Test Item Value Reference Range Interpretation Comments Troponin-I (test code no gt See_Comment [Auto mated message] The = Troponin-I) system which g enerated this result transmit gaye reference range : <=0.40. The reference r ozzy was not used to interpr et this result as satish l/abnormal. [employer] VZRYJ4583-49-30 06:44:00 Test Item Value Reference Range Interpretation Comments Albumin Lvl (test code = Albumin Lvl) 3.5 3.5-5.0 [facility] HZEPX4721-66-43 06:44:00 Test Item Value Reference Range Interpretation Comments Total Protein (test code = Total 7.0 6.4-8.4 Protein) [facility] [id number] 06:44:00 Test Item Value Reference Range Interpretation Comments ALT (test code = ALT) 19 See_Comment [Auto mated message] The system which ge nerated this result transmit gaye reference range : <=65. The reference range was not used to interpr et this result as satish l/abnormal. [employer] [id number] 06:44:00 Test Item Value Reference Range Interpretation Comments AST (test code = AST) 10 See_Comment [Auto mated message] The system which ge nerated this result transmit gaye reference range : <=37. The reference range was not used to interpr et this result as satish l/abnormal. [place] 035516-07-03 06:44:00 Test Item Value Reference Range Interpretation Comments Alk Phos (test code = Alk Phos) 79 39-136 [facility]2016-07-03 06:44:00 Test Item Value Reference Range Interpretation Comments Bili Total (test code = Bili Total) 0.4 0.2-1.3 [facility]2016-07-03 06:44:00 Test Item Value Reference Range Interpretation Comments Bili Direct (test code 0.1 See_Comment [Aut omated message] The = Bili Direct) system which generated this result tra nsmitted reference range : <=0.3. The reference r ozzy was not used to int erpret this result as satish l/abnormal. [facility]2016-07-03 06:44:00 Test Item Value Reference Range Interpretation Comments Globulin (test code = Globulin) 3.5 2.0-4.0 [facility]2016-07-03 06:44:00 Test Item Value Reference Range Interpretation Comments A/G Ratio (test code = A/G Ratio) 1.0 0.7-1.6 [place] 035516-07-03 06:44:00 Test Item Value Reference Range Interpretation Comments Bili Indirect (test 0.3 See_Comment [Automa gaye message] The code = Bili Indirect) system which generated this result tra nsmitted reference range : <=1.0. The reference r ozzy was not used to int erpret this result as normal/abnormal . [facility]2016-07-03 06:44:00 Test Item Value Reference Range Interpretation Comments eGFR (test code = eGFR) 107 [facility]2016-07-03 06:44:00 Test Item Value Reference Range Interpretation Comments BUN (test code = BUN) 8 7-22 [facility]2016-07-03 06:44:00 Test Item Value Reference Range Interpretation Comments Glucose Lvl (test code = Glucose Lvl) 91 70-99 [place] 035516-07-03 06:44:00 Test Item Value Reference Range Interpretation Comments Sodium Lvl (test code = Sodium Lvl) 138 135-145 [place] 035516-07-03 06:44:00 Test Item Value Reference Range Interpretation Comments Creatinine Lvl (test code = Creatinine 0.70 0.50-1.40 Lvl) [facility]2016-07-03 06:44:00 Test Item Value Reference Range Interpretation Comments Potassium Lvl (test code = Potassium 3.3 3.5-5.1 Lvl) [facility]2016-07-03 06:44:00 Test Item Value Reference Range Interpretation Comments CO2 (test code = CO2) 25 24-32 [facility]2016-07-03 06:44:00 Test Item Value Reference Range Interpretation Comments Chloride Lvl (test code = Chloride Lvl) 106 95-109 [facility]2016-07-03 06:44:00 Test Item Value Reference Range Interpretation Comments Calcium Lvl (test code = Calcium Lvl) 8.1 8.5-10.5 [facility]2016-07-03 06:44:00 Test Item Value Reference Range Interpretation Comments AGAP (test code = AGAP) 10.3 10.0-20.0 [facility]2016-07-03 06:44:00 Test Item Value Reference Range Interpretation Comments Magnesium Lvl (test code = Magnesium 2.2 1.8-2.4 Lvl) [facility]HglgajaQEGAVFVQXFKDH3461-60-01 06:44:00 Test Item Value Reference Range Interpretation Comments S Preg (test code = S Negative *NA*(02/13/16 Preg) 1:44 AM) [facility] CampusXmjjzqoKOSHSRKRAR9976-80-13 06:44:00 Test Item Value Reference Range Interpretation Comments Basophils (test code = 0.1 See_Comment [Aut omated message] The Basophils) system which ge nerated this result tra nsmitted reference range : <=1.0. The reference r ozzy was not used to int erpret this result as normal/abnormal . [facility] CampusAggsldrDOOCTKNUSJ8828-48-82 06:44:00 Test Item Value Reference Range Interpretation Comments Monocytes # (test code 0.3 See_Comment [Aut omated message] The = Monocytes #) system which generated this result tra nsmitted reference range : <=0.8. The reference r ozzy was not used to int erpret this result as normal/abnormal . [facility] CampusBczrllbDLGJIOWFAD7118-21-30 06:44:00 Test Item Value Reference Range Interpretation Comments Eosinophils # (test code 0.1 See_Comment [A utomated message] The = Eosinophils #) system whic h generated this result tra nsmitted reference range : <=0.5. The reference r ozzy was not used to int erpret this result as normal/abnormal . [facility] CampusIkhktlmBSCMMKHNRJ0915-82-34 06:44:00 Test Item Value Reference Range Interpretation Comments Segs-Bands # (test code = Segs-Bands #) 9.3 1.5-8.1 [facility] CampusNzyrtuhPUQKLWUNMS5550-10-22 06:44:00 Test Item Value Reference Range Interpretation Comments Lymphocytes # (test code = Lymphocytes 2.6 1.0-5.5 #) [facility] CampusMvzncdpFXXWIWUJIE1351-63-85 06:44:00 Test Item Value Reference Range Interpretation Comments Basophils # (test code 0.0 See_Comment [Aut omated message] The = Basophils #) system which generated this result tra nsmitted reference range : <=0.2. The reference r ozzy was not used to int erpret this result as normal/abnormal . [facility] CampusPesysepGDDXXDMIBS2110-62-30 06:44:00 Test Item Value Reference Range Interpretation Comments Microcyte (test code = 1+ *ABN*(02/13/16 1:44 Microcyte) AM) [facility] CampusHrohuuiYGYMHXPCMU9527-90-62 06:44:00 Test Item Value Reference Range Interpretation Comments Giant Plt (test code Moderate *ABN*(02/13/16 = Giant Plt) 1:44 AM) [facility] CampusQyhxrfdPOKNKWPWXO0215-26-60 06:44:00 Test Item Value Reference Range Interpretation Comments Segs (test code = Segs) 75.2 45.0-75.0 [facility] CampusFsqutubPIYWWPAMRE5295-33-82 06:44:00 Test Item Value Reference Range Interpretation Comments Hypochrom (test code = 1+ (02/13/16 1:44 AM) Hypochrom) [facility] CampusKjpsgrzYRRUHEQGHJ2781-00-95 06:44:00 Test Item Value Reference Range Interpretation Comments Eosinophils (test code = 0.7 See_Comment [A utomated message] The Eosinophils) system which ge nerated this result tra nsmitted reference range : <=4.0. The reference r ozzy was not used to int erpret this result as normal/abnormal . [facility] CampusUlczoeuPUFQPLHEVG5191-40-99 06:44:00 Test Item Value Reference Range Interpretation Comments Lymphocytes (test code = Lymphocytes) 21.3 20.0-40.0 [facility] CampusBmrnseeYHRYEZORXM5964-11-98 06:44:00 Test Item Value Reference Range Interpretation Comments Monocytes (test code = Monocytes) 2.7 2.0-12.0 [facility] CampusUbxsfibIMVYWRBNAN0334-50-24 06:44:00 Test Item Value Reference Range Interpretation Comments MPV (test code = MPV) 9.5 7.4-10.4 [facility] CampusTlelgksAXBILSZTYH7570-88-28 06:44:00 Test Item Value Reference Range Interpretation Comments RDW (test code = RDW) 17.8 11.5-14.5 [facility] CampusGusmniiHNYJZZBHAO2750-57-68 06:44:00 Test Item Value Reference Range Interpretation Comments MCV (test code = MCV) 73.2 80.0-98.0 [facility] CampusJaoebbeEYMYRKEEYN6019-83-16 06:44:00 Test Item Value Reference Range Interpretation Comments MCH (test code = MCH) 21.9 pg 27.0-31.0 [facility] CampusSvumkflPSCNPFXFUG4827-05-43 06:44:00 Test Item Value Reference Range Interpretation Comments Hct (test code = Hct) 27.2 36.0-48.0 [facility] CampusEtqxfogNXWJPZIQGN4998-00-73 06:44:00 Test Item Value Reference Range Interpretation Comments MCHC (test code = MCHC) 29.9 32.0-36.0 [facility] CampusFrgqoqgCFKWMJVPHJ4113-00-58 06:44:00 Test Item Value Reference Range Interpretation Comments Platelet (test code = Platelet) 400 133-450 [facility] CampusFmesgjeIVKJBYNLHW8941-53-63 06:44:00 Test Item Value Reference Range Interpretation Comments WBC (test code = WBC) 12.4 3.7-10.4 [facility] CampusCyckkhiNXZGDQRUTP7435-91-93 06:44:00 Test Item Value Reference Range Interpretation Comments RBC (test code = RBC) 3.72 4.20-5.40 [facility] CampusHiijlhxOILUVSRPCB3603-77-32 06:44:00 Test Item Value Reference Range Interpretation Comments Hgb (test code = Hgb) 8.1 12.0-16.0 [facility] CampusFxboottMXULAYUAOG7735-16-32 06:44:00 Test Item Value Reference Range Interpretation Comments PTT (test code = PTT) 27.2 s 22.9-35.8 [facility] UsjtcjeDHQYFRQQSO3620-53-24 06:44:00 Test Item Value Reference Range Interpretation Comments PT (test code = PT) 14.7 s 12.0-14.7 [facility] YggvyssKRENZFSEGR4558-96-97 06:44:00 Test Item Value Reference Range Interpretation Comments INR (test code = INR) 1.12 0.85-1.17 [facility] [employer] CJPUCUV9055-55-04 06:44:00 Test Item Value Reference Range Interpretation Comments Antibody Scrn (test Negative (02/13/16 1:44 code = Antibody Scrn) AM) [facility] [employer] [id number] 06:44:00 Test Item Value Reference Range Interpretation Comments ABO/Rh (test code = ABO/Rh) A POS [facility] [employer]2016-07-03 06:44:00 Test Item Value Reference Range Interpretation Comments CK MB Index (test 1.6 See_Comment [Automate d message] The code = CK MB Index) system w [facility] generated this result transmit gaye reference range : <=2.5. The reference range was not used to interpr et this result as satish l/abnormal. [facility] [employer]2016-07-03 06:44:00 Test Item Value Reference Range Interpretation Comments CK MB (test code = CK MB) 0.9 0.5-3.6 [facility] [employer]2016-07-03 06:44:00 Test Item Value Reference Range Interpretation Comments Total CK (test code = Total CK) 57 12-191 [facility] [employer]2016-07-03 06:44:00 Test Item Value Reference Range Interpretation Comments Troponin-I (test code no gt See_Comment [Auto mated message] The = Troponin-I) system which g enerated this result transmit gaye reference range : <=0.40. The reference r ozzy was not used to interpr et this result as satish l/abnormal. [employer] [id number] 06:44:00 Test Item Value Reference Range Interpretation Comments Albumin Lvl (test code = Albumin Lvl) 3.5 3.5-5.0 [place] 035516-07-03 06:44:00 Test Item Value Reference Range Interpretation Comments Total Protein (test code = Total 7.0 6.4-8.4 Protein) [place] 035516-07-03 06:44:00 Test Item Value Reference Range Interpretation Comments ALT (test code = ALT) 19 See_Comment [Auto mated message] The system which ge nerated this result transmit gaye reference range : <=65. The reference range was not used to interpr et this result as satish l/abnormal. [facility]2016-07-03 06:44:00 Test Item Value Reference Range Interpretation Comments AST (test code = AST) 10 See_Comment [Auto mated message] The system which ge nerated this result transmit gaye reference range : <=37. The reference range was not used to interpr et this result as satish l/abnormal. [place] 035516-07-03 06:44:00 Test Item Value Reference Range Interpretation Comments Alk Phos (test code = Alk Phos) 79 39-136 [facility]2016-07-03 06:44:00 Test Item Value Reference Range Interpretation Comments Bili Total (test code = Bili Total) 0.4 0.2-1.3 [place] 035516-07-03 06:44:00 Test Item Value Reference Range Interpretation Comments Bili Direct (test code 0.1 See_Comment [Aut omated message] The = Bili Direct) system which generated this result tra nsmitted reference range : <=0.3. The reference r ozzy was not used to int erpret this result as satish l/abnormal. [facility]2016-07-03 06:44:00 Test Item Value Reference Range Interpretation Comments Globulin (test code = Globulin) 3.5 2.0-4.0 [place] 035516-07-03 06:44:00 Test Item Value Reference Range Interpretation Comments A/G Ratio (test code = A/G Ratio) 1.0 0.7-1.6 [place] 035516-07-03 06:44:00 Test Item Value Reference Range Interpretation Comments Bili Indirect (test 0.3 See_Comment [Automa gaye message] The code = Bili Indirect) system which generated this result tra nsmitted reference range : <=1.0. The reference r ozzy was not used to int erpret this result as normal/abnormal . [facility]2016-07-03 06:44:00 Test Item Value Reference Range Interpretation Comments eGFR (test code = eGFR) 107 [facility]2016-07-03 06:44:00 Test Item Value Reference Range Interpretation Comments BUN (test code = BUN) 8 7-22 [facility]2016-07-03 06:44:00 Test Item Value Reference Range Interpretation Comments Glucose Lvl (test code = Glucose Lvl) 91 70-99 [facility]2016-07-03 06:44:00 Test Item Value Reference Range Interpretation Comments Sodium Lvl (test code = Sodium Lvl) 138 135-145 [facility]2016-07-03 06:44:00 Test Item Value Reference Range Interpretation Comments Creatinine Lvl (test code = Creatinine 0.70 0.50-1.40 Lvl) [facility]2016-07-03 06:44:00 Test Item Value Reference Range Interpretation Comments Potassium Lvl (test code = Potassium 3.3 3.5-5.1 Lvl) [facility]2016-07-03 06:44:00 Test Item Value Reference Range Interpretation Comments CO2 (test code = CO2) 25 24-32 [facility]2016-07-03 06:44:00 Test Item Value Reference Range Interpretation Comments Chloride Lvl (test code = Chloride Lvl) 106 95-109 [facility]2016-07-03 06:44:00 Test Item Value Reference Range Interpretation Comments Calcium Lvl (test code = Calcium Lvl) 8.1 8.5-10.5 [facility]2016-07-03 06:44:00 Test Item Value Reference Range Interpretation Comments AGAP (test code = AGAP) 10.3 10.0-20.0 [facility]2016-07-03 06:44:00 Test Item Value Reference Range Interpretation Comments Magnesium Lvl (test code = Magnesium 2.2 1.8-2.4 Lvl) [facility]EV[facility]ZDHACTTT3957-91-17 06:44:00 Test Item Value Reference Range Interpretation Comments S Preg (test code = S Negative *NA*(02/13/16 Preg) 1:44 AM) [facility] CampusUdufldiMQGDJRORYR6326-42-31 06:44:00 Test Item Value Reference Range Interpretation Comments Basophils (test code = 0.1 See_Comment [Aut omated message] The Basophils) system which ge nerated this result tra nsmitted reference range : <=1.0. The reference r ozzy was not used to int erpret this result as normal/abnormal . [facility] CampusMsmnmsnXOBBKBZMOO8262-36-25 06:44:00 Test Item Value Reference Range Interpretation Comments Monocytes # (test code 0.3 See_Comment [Aut omated message] The = Monocytes #) system which generated this result tra nsmitted reference range : <=0.8. The reference r ozzy was not used to int erpret this result as normal/abnormal . [facility] CampusVnsuvhzDATNCJNFMT4070-14-69 06:44:00 Test Item Value Reference Range Interpretation Comments Eosinophils # (test code 0.1 See_Comment [A utomated message] The = Eosinophils #) system whic h generated this result tra nsmitted reference range : <=0.5. The reference r ozzy was not used to int erpret this result as normal/abnormal . [facility] CampusEgkauarVJCXCYSNEM0822-65-90 06:44:00 Test Item Value Reference Range Interpretation Comments Segs-Bands # (test code = Segs-Bands #) 9.3 1.5-8.1 [facility] CampusZtfipehOEMLHGELFE4299-79-43 06:44:00 Test Item Value Reference Range Interpretation Comments Lymphocytes # (test code = Lymphocytes 2.6 1.0-5.5 #) [facility] CampusGcxnrdkUKRLDQXSOC0331-70-71 06:44:00 Test Item Value Reference Range Interpretation Comments Basophils # (test code 0.0 See_Comment [Aut omated message] The = Basophils #) system which generated this result tra nsmitted reference range : <=0.2. The reference r ozzy was not used to int erpret this result as normal/abnormal . [facility] CampusKzbebrbBJPZGRFCBX2710-45-37 06:44:00 Test Item Value Reference Range Interpretation Comments Microcyte (test code = 1+ *ABN*(02/13/16 1:44 Microcyte) AM) [facility] CampusLlmpmhoRTKQLZITKH3077-80-10 06:44:00 Test Item Value Reference Range Interpretation Comments Giant Plt (test code Moderate *ABN*(02/13/16 = Giant Plt) 1:44 AM) [facility] CampusLnwkrfdERMPNJHFKJ0671-71-66 06:44:00 Test Item Value Reference Range Interpretation Comments Segs (test code = Segs) 75.2 45.0-75.0 [facility] CampusKrmbukcXGTFRHKCQB3355-53-92 06:44:00 Test Item Value Reference Range Interpretation Comments Hypochrom (test code = 1+ (02/13/16 1:44 AM) Hypochrom) [facility] CampusValjjpiDZSYOPFQBH8994-89-83 06:44:00 Test Item Value Reference Range Interpretation Comments Eosinophils (test code = 0.7 See_Comment [A utomated message] The Eosinophils) system which ge nerated this result tra nsmitted reference range : <=4.0. The reference r ozzy was not used to int erpret this result as normal/abnormal . [facility] CampusCgftvxnHEQTPBBGCR8131-76-19 06:44:00 Test Item Value Reference Range Interpretation Comments Lymphocytes (test code = Lymphocytes) 21.3 20.0-40.0 [facility] CampusWgqyagkMFDNMMBUHO3473-17-84 06:44:00 Test Item Value Reference Range Interpretation Comments Monocytes (test code = Monocytes) 2.7 2.0-12.0 [facility] CampusTiokzmaCBQPUUJQLC1458-49-22 06:44:00 Test Item Value Reference Range Interpretation Comments MPV (test code = MPV) 9.5 7.4-10.4 [facility] CampusQwjbmbtXWPZZUVJSN3876-43-89 06:44:00 Test Item Value Reference Range Interpretation Comments RDW (test code = RDW) 17.8 11.5-14.5 [facility] CampusDnexhrzAYBIGZVPQI6634-76-20 06:44:00 Test Item Value Reference Range Interpretation Comments MCV (test code = MCV) 73.2 80.0-98.0 [facility] CampusIwaqezoZSMMZOJRKA0537-48-91 06:44:00 Test Item Value Reference Range Interpretation Comments MCH (test code = MCH) 21.9 pg 27.0-31.0 [facility] CampusAvjdmskYZSSVSDJVQ8757-79-06 06:44:00 Test Item Value Reference Range Interpretation Comments Hct (test code = Hct) 27.2 36.0-48.0 [facility] CampusBqvcayuYYGXIAZFYH8871-43-78 06:44:00 Test Item Value Reference Range Interpretation Comments MCHC (test code = MCHC) 29.9 32.0-36.0 [facility] TkmpikmEISNLYQFYQ8295-13-18 06:44:00 Test Item Value Reference Range Interpretation Comments Platelet (test code = Platelet) 400 133-450 [facility] TglxaijOJKCWXIZMS5595-36-51 06:44:00 Test Item Value Reference Range Interpretation Comments WBC (test code = WBC) 12.4 3.7-10.4 [facility]jumqohSVWWQVYOFN4030-78-40 06:44:00 Test Item Value Reference Range Interpretation Comments RBC (test code = RBC) 3.72 4.20-5.40 [facility]MjocdwjVSDKNUKAIW9959-49-45 06:44:00 Test Item Value Reference Range Interpretation Comments Hgb (test code = Hgb) 8.1 12.0-16.0 [facility] HospitalFrajohtICOGZBEHYH9098-75-46 06:44:00 Test Item Value Reference Range Interpretation Comments PTT (test code = PTT) 27.2 s 22.9-35.8 [facility] VjiqrqqMORHXXFMOG9292-59-35 06:44:00 Test Item Value Reference Range Interpretation Comments PT (test code = PT) 14.7 s 12.0-14.7 [facility] HospitalArmyyyuSJSVDPACKQ0229-83-64 06:44:00 Test Item Value Reference Range Interpretation Comments INR (test code = INR) 1.12 0.85-1.17 [facility] [employer] HMGKQZL4563-51-16 06:44:00 Test Item Value Reference Range Interpretation Comments Antibody Scrn (test Negative (02/13/16 1:44 code = Antibody Scrn) AM) [employer] SHLZPWA0457-69-23 06:44:00 Test Item Value Reference Range Interpretation Comments ABO/Rh (test code = ABO/Rh) A POS [facility] [employer]2016-07-03 06:44:00 Test Item Value Reference Range Interpretation Comments CK MB Index (test 1.6 See_Comment [Automate d message] The code = CK MB Index) system w [facility] generated this result transmit gaye reference range : <=2.5. The reference range was not used to interpr et this result as satish l/abnormal. [employer]2016-07-03 06:44:00 Test Item Value Reference Range Interpretation Comments CK MB (test code = CK MB) 0.9 0.5-3.6 [facility] HospitalInuvo VHUPOKN6186-46-02 06:44:00 Test Item Value Reference Range Interpretation Comments Total CK (test code = Total CK) 57 12-191 [facility] NVFBOBZ0681-98-80 06:44:00 Test Item Value Reference Range Interpretation Comments Troponin-I (test code no gt See_Comment [Auto mated message] The = Troponin-I) system which g enerated this result transmit gaye reference range : <=0.40. The reference r ozzy was not used to interpr et this result as satish l/abnormal. [facility] [employer] QFBBB2127-39-74 06:44:00 Test Item Value Reference Range Interpretation Comments Albumin Lvl (test code = Albumin Lvl) 3.5 3.5-5.0 [facility] [employer] BPRMQ2978-07-57 06:44:00 Test Item Value Reference Range Interpretation Comments Total Protein (test code = Total 7.0 6.4-8.4 Protein) [facility]el[facility] MCDVA8504-14-25 06:44:00 Test Item Value Reference Range Interpretation Comments ALT (test code = ALT) 19 See_Comment [Auto mated message] The system which ge nerated this result transmit gaye reference range : <=65. The reference range was not used to interpr et this result as satish l/abnormal. [facility] [employer] CFOWZ4136-65-09 06:44:00 Test Item Value Reference Range Interpretation Comments AST (test code = AST) 10 See_Comment [Auto mated message] The system which ge nerated this result transmit gaye reference range : <=37. The reference range was not used to interpr et this result as satish l/abnormal. [facility] [employer]2016-07-03 06:44:00 Test Item Value Reference Range Interpretation Comments Alk Phos (test code = Alk Phos) 79 39-136 [facility] [employer] FXYPE8575-69-88 06:44:00 Test Item Value Reference Range Interpretation Comments Bili Total (test code = Bili Total) 0.4 0.2-1.3 [facility] [employer] IQSKG1213-20-55 06:44:00 Test Item Value Reference Range Interpretation Comments Bili Direct (test code 0.1 See_Comment [Aut omated message] The = Bili Direct) system which generated this result tra nsmitted reference range : <=0.3. The reference r ozzy was not used to int erpret this result as satish l/abnormal. [facility]2016-07-03 06:44:00 Test Item Value Reference Range Interpretation Comments Globulin (test code = Globulin) 3.5 2.0-4.0 [place] 035516-07-03 06:44:00 Test Item Value Reference Range Interpretation Comments A/G Ratio (test code = A/G Ratio) 1.0 0.7-1.6 [place] 035516-07-03 06:44:00 Test Item Value Reference Range Interpretation Comments Bili Indirect (test 0.3 See_Comment [Automa gaye message] The code = Bili Indirect) system which generated this result tra nsmitted reference range : <=1.0. The reference r ozzy was not used to int erpret this result as normal/abnormal . [facility]2016-07-03 06:44:00 Test Item Value Reference Range Interpretation Comments eGFR (test code = eGFR) 107 [facility]2016-07-03 06:44:00 Test Item Value Reference Range Interpretation Comments BUN (test code = BUN) 8 7-22 [facility]2016-07-03 06:44:00 Test Item Value Reference Range Interpretation Comments Glucose Lvl (test code = Glucose Lvl) 91 70-99 [facility]2016-07-03 06:44:00 Test Item Value Reference Range Interpretation Comments Sodium Lvl (test code = Sodium Lvl) 138 135-145 [facility]2016-07-03 06:44:00 Test Item Value Reference Range Interpretation Comments Creatinine Lvl (test code = Creatinine 0.70 0.50-1.40 Lvl) [facility]2016-07-03 06:44:00 Test Item Value Reference Range Interpretation Comments Potassium Lvl (test code = Potassium 3.3 3.5-5.1 Lvl) [facility]2016-07-03 06:44:00 Test Item Value Reference Range Interpretation Comments CO2 (test code = CO2) 25 24-32 [place] 035516-07-03 06:44:00 Test Item Value Reference Range Interpretation Comments Chloride Lvl (test code = Chloride Lvl) 106 95-109 [facility]2016-07-03 06:44:00 Test Item Value Reference Range Interpretation Comments Calcium Lvl (test code = Calcium Lvl) 8.1 8.5-10.5 [facility]2016-07-03 06:44:00 Test Item Value Reference Range Interpretation Comments AGAP (test code = AGAP) 10.3 10.0-20.0 [facility]2016-07-03 06:44:00 Test Item Value Reference Range Interpretation Comments Magnesium Lvl (test code = Magnesium 2.2 1.8-2.4 Lvl) [facility]WTWRMEFGFBXI7850-67-82 06:44:00 Test Item Value Reference Range Interpretation Comments S Preg (test code = S Negative *NA*(02/13/16 Preg) 1:44 AM) [facility] CampusCqwvxakDGPHGTAPSP1690-29-71 06:44:00 Test Item Value Reference Range Interpretation Comments Basophils (test code = 0.1 See_Comment [Aut omated message] The Basophils) system which ge nerated this result tra nsmitted reference range : <=1.0. The reference r ozzy was not used to int erpret this result as normal/abnormal . [facility] CampusDxjykzbBJNYKUEYRY8952-67-58 06:44:00 Test Item Value Reference Range Interpretation Comments Monocytes # (test code 0.3 See_Comment [Aut omated message] The = Monocytes #) system which generated this result tra nsmitted reference range : <=0.8. The reference r ozzy was not used to int erpret this result as normal/abnormal . [facility] CampusGivstdiNMRYLKSGAO4679-58-23 06:44:00 Test Item Value Reference Range Interpretation Comments Eosinophils # (test code 0.1 See_Comment [A utomated message] The = Eosinophils #) system whic h generated this result tra nsmitted reference range : <=0.5. The reference r ozzy was not used to int erpret this result as normal/abnormal . [facility] CampusRaszljrKXZZLUHRZD6052-50-98 06:44:00 Test Item Value Reference Range Interpretation Comments Segs-Bands # (test code = Segs-Bands #) 9.3 1.5-8.1 [facility] CampusKnrxmgtGOMNKRAEZD6689-40-43 06:44:00 Test Item Value Reference Range Interpretation Comments Lymphocytes # (test code = Lymphocytes 2.6 1.0-5.5 #) [facility] CampusPgqfuewOBTHECXOXW1720-11-15 06:44:00 Test Item Value Reference Range Interpretation Comments Basophils # (test code 0.0 See_Comment [Aut omated message] The = Basophils #) system which generated this result tra nsmitted reference range : <=0.2. The reference r ozzy was not used to int erpret this result as normal/abnormal . [facility] CampusOivsrjmSANESWWFFQ9814-35-79 06:44:00 Test Item Value Reference Range Interpretation Comments Microcyte (test code = 1+ *ABN*(02/13/16 1:44 Microcyte) AM) [facility] CampusFbexuhfQKNAVVLFZF4906-58-12 06:44:00 Test Item Value Reference Range Interpretation Comments Giant Plt (test code Moderate *ABN*(02/13/16 = Giant Plt) 1:44 AM) [facility] CampusJldfutuFEMHZGSOLY4323-28-37 06:44:00 Test Item Value Reference Range Interpretation Comments Segs (test code = Segs) 75.2 45.0-75.0 [facility] CampusTbmouacPSYHCWUWEC9207-42-36 06:44:00 Test Item Value Reference Range Interpretation Comments Hypochrom (test code = 1+ (02/13/16 1:44 AM) Hypochrom) [facility] CampusXovcovgILJHLZEQKJ2134-91-69 06:44:00 Test Item Value Reference Range Interpretation Comments Eosinophils (test code = 0.7 See_Comment [A utomated message] The Eosinophils) system which ge nerated this result tra nsmitted reference range : <=4.0. The reference r ozzy was not used to int erpret this result as normal/abnormal . [facility] CampusNabgziuQJIDALLOMX9398-01-94 06:44:00 Test Item Value Reference Range Interpretation Comments Lymphocytes (test code = Lymphocytes) 21.3 20.0-40.0 [facility] CampusSvngbmwFXOAGBKXAF9029-25-64 06:44:00 Test Item Value Reference Range Interpretation Comments Monocytes (test code = Monocytes) 2.7 2.0-12.0 [facility] CampusWjaihdmUPSLDICXOX4356-28-32 06:44:00 Test Item Value Reference Range Interpretation Comments MPV (test code = MPV) 9.5 7.4-10.4 [facility] CampusFpcyoizVXQTWZIBQZ0326-60-38 06:44:00 Test Item Value Reference Range Interpretation Comments RDW (test code = RDW) 17.8 11.5-14.5 [facility] CampusAdqdlsrOAFOGLKFVQ2911-64-06 06:44:00 Test Item Value Reference Range Interpretation Comments MCV (test code = MCV) 73.2 80.0-98.0 [facility] CampusHnfckjwPPUGJPTTLD0017-96-35 06:44:00 Test Item Value Reference Range Interpretation Comments MCH (test code = MCH) 21.9 pg 27.0-31.0 [facility] CampusInuhuzdJICUSYTDYL6297-71-83 06:44:00 Test Item Value Reference Range Interpretation Comments Hct (test code = Hct) 27.2 36.0-48.0 [facility] CampusUhcdgwjDRLHLUQPEQ9699-89-28 06:44:00 Test Item Value Reference Range Interpretation Comments MCHC (test code = MCHC) 29.9 32.0-36.0 [facility] CampusRelxftiKWGCCNNXUP0776-14-62 06:44:00 Test Item Value Reference Range Interpretation Comments Platelet (test code = Platelet) 400 133-450 [facility] CampusJphnesdHKTKXMFICA1984-78-74 06:44:00 Test Item Value Reference Range Interpretation Comments WBC (test code = WBC) 12.4 3.7-10.4 [facility] CampusEmtdpjdFRQRFDHJHR4013-46-06 06:44:00 Test Item Value Reference Range Interpretation Comments RBC (test code = RBC) 3.72 4.20-5.40 [facility] CampusMkilqqtXOIIHTKPQD6768-58-36 06:44:00 Test Item Value Reference Range Interpretation Comments Hgb (test code = Hgb) 8.1 12.0-16.0 [facility] CampusGwyzqjnITQSRQCWAI4578-97-69 06:44:00 Test Item Value Reference Range Interpretation Comments PTT (test code = PTT) 27.2 s 22.9-35.8 [facility] CampusAxqurprGWOLDOCCWB9634-44-38 06:44:00 Test Item Value Reference Range Interpretation Comments PT (test code = PT) 14.7 s 12.0-14.7 [facility] CampusCylnortRBWYHMVIXF4832-78-10 06:44:00 Test Item Value Reference Range Interpretation Comments INR (test code = INR) 1.12 0.85-1.17 [facility] BANK [id number] 06:44:00 Test Item Value Reference Range Interpretation Comments Antibody Scrn (test Negative (02/13/16 1:44 code = Antibody Scrn) AM) [facility] [employer] BANK [id number] 06:44:00 Test Item Value Reference Range Interpretation Comments ABO/Rh (test code = ABO/Rh) A POS [facility] [id number] 06:44:00 Test Item Value Reference Range Interpretation Comments CK MB Index (test 1.6 See_Comment [Automate d message] The code = CK MB Index) system w [facility] generated this result transmit gaye reference range : <=2.5. The reference range was not used to interpr et this result as satish l/abnormal. [facility] [employer] [id number] 06:44:00 Test Item Value Reference Range Interpretation Comments CK MB (test code = CK MB) 0.9 0.5-3.6 [facility] [employer] [id number] 06:44:00 Test Item Value Reference Range Interpretation Comments Total CK (test code = Total CK) 57 12-191 [facility] [employer] [id number] 06:44:00 Test Item Value Reference Range Interpretation Comments Troponin-I (test code no gt See_Comment [Auto mated message] The = Troponin-I) system which g enerated this result transmit gaye reference range : <=0.40. The reference r ozzy was not used to interpr et this result as satish l/abnormal. [employer] [id number] 06:44:00 Test Item Value Reference Range Interpretation Comments Albumin Lvl (test code = Albumin Lvl) 3.5 3.5-5.0 [facility] [id number] 06:44:00 Test Item Value Reference Range Interpretation Comments Total Protein (test code = Total 7.0 6.4-8.4 Protein) [facility] [id number] 06:44:00 Test Item Value Reference Range Interpretation Comments ALT (test code = ALT) 19 See_Comment [Auto mated message] The system which ge nerated this result transmit gaye reference range : <=65. The reference range was not used to interpr et this result as satish l/abnormal. [employer] [id number] 06:44:00 Test Item Value Reference Range Interpretation Comments AST (test code = AST) 10 See_Comment [Auto mated message] The system which ge nerated this result transmit gaye reference range : <=37. The reference range was not used to interpr et this result as satish l/abnormal. [facility]2016-07-03 06:44:00 Test Item Value Reference Range Interpretation Comments Alk Phos (test code = Alk Phos) 79 39-136 [facility]2016-07-03 06:44:00 Test Item Value Reference Range Interpretation Comments Bili Total (test code = Bili Total) 0.4 0.2-1.3 [place] 035516-07-03 06:44:00 Test Item Value Reference Range Interpretation Comments Bili Direct (test code 0.1 See_Comment [Aut omated message] The = Bili Direct) system which generated this result tra nsmitted reference range : <=0.3. The reference r ozzy was not used to int erpret this result as satish l/abnormal. [facility]2016-07-03 06:44:00 Test Item Value Reference Range Interpretation Comments Globulin (test code = Globulin) 3.5 2.0-4.0 [facility]2016-07-03 06:44:00 Test Item Value Reference Range Interpretation Comments A/G Ratio (test code = A/G Ratio) 1.0 0.7-1.6 [place] 035516-07-03 06:44:00 Test Item Value Reference Range Interpretation Comments Bili Indirect (test 0.3 See_Comment [Automa gaye message] The code = Bili Indirect) system which generated this result tra nsmitted reference range : <=1.0. The reference r ozzy was not used to int erpret this result as normal/abnormal . [facility]2016-07-03 06:44:00 Test Item Value Reference Range Interpretation Comments eGFR (test code = eGFR) 107 [facility]2016-07-03 06:44:00 Test Item Value Reference Range Interpretation Comments BUN (test code = BUN) 8 7-22 [facility]2016-07-03 06:44:00 Test Item Value Reference Range Interpretation Comments Glucose Lvl (test code = Glucose Lvl) 91 70-99 [place] 035516-07-03 06:44:00 Test Item Value Reference Range Interpretation Comments Sodium Lvl (test code = Sodium Lvl) 138 135-145 [facility]2016-07-03 06:44:00 Test Item Value Reference Range Interpretation Comments Creatinine Lvl (test code = Creatinine 0.70 0.50-1.40 Lvl) [facility]2016-07-03 06:44:00 Test Item Value Reference Range Interpretation Comments Potassium Lvl (test code = Potassium 3.3 3.5-5.1 Lvl) [facility]2016-07-03 06:44:00 Test Item Value Reference Range Interpretation Comments CO2 (test code = CO2) 25 24-32 [facility]2016-07-03 06:44:00 Test Item Value Reference Range Interpretation Comments Chloride Lvl (test code = Chloride Lvl) 106 95-109 [facility]2016-07-03 06:44:00 Test Item Value Reference Range Interpretation Comments Calcium Lvl (test code = Calcium Lvl) 8.1 8.5-10.5 [facility]2016-07-03 06:44:00 Test Item Value Reference Range Interpretation Comments AGAP (test code = AGAP) 10.3 10.0-20.0 [facility]2016-07-03 06:44:00 Test Item Value Reference Range Interpretation Comments Magnesium Lvl (test code = Magnesium 2.2 1.8-2.4 Lvl) [facility]EC1586[facility]39-02 06:44:00 Test Item Value Reference Range Interpretation Comments S Preg (test code = S Negative *NA*(02/13/16 Preg) 1:44 AM) [facility] CampusQnaxcdoWWZGGJQRIV0874-16-84 06:44:00 Test Item Value Reference Range Interpretation Comments Basophils (test code = 0.1 See_Comment [Aut omated message] The Basophils) system which ge nerated this result tra nsmitted reference range : <=1.0. The reference r ozzy was not used to int erpret this result as normal/abnormal . [facility] CampusXatgorcIYLXADFNOV0117-48-49 06:44:00 Test Item Value Reference Range Interpretation Comments Monocytes # (test code 0.3 See_Comment [Aut omated message] The = Monocytes #) system which generated this result tra nsmitted reference range : <=0.8. The reference r ozzy was not used to int erpret this result as normal/abnormal . [facility] CampusSoazzmdBSVFIHWHBD9243-37-15 06:44:00 Test Item Value Reference Range Interpretation Comments Eosinophils # (test code 0.1 See_Comment [A utomated message] The = Eosinophils #) system whic h generated this result tra nsmitted reference range : <=0.5. The reference r ozzy was not used to int erpret this result as normal/abnormal . [facility] CampusVbowdqxVFKXCPZZGT7567-98-96 06:44:00 Test Item Value Reference Range Interpretation Comments Segs-Bands # (test code = Segs-Bands #) 9.3 1.5-8.1 [facility] CampusPbebxnmMHWGGOXEII7850-94-95 06:44:00 Test Item Value Reference Range Interpretation Comments Lymphocytes # (test code = Lymphocytes 2.6 1.0-5.5 #) [facility] CampusIhrmahjLIOUXVXYTF0156-19-17 06:44:00 Test Item Value Reference Range Interpretation Comments Basophils # (test code 0.0 See_Comment [Aut omated message] The = Basophils #) system which generated this result tra nsmitted reference range : <=0.2. The reference r ozzy was not used to int erpret this result as normal/abnormal . [facility] CampusKesvcftHZWYSRHGMM2684-96-17 06:44:00 Test Item Value Reference Range Interpretation Comments Microcyte (test code = 1+ *ABN*(02/13/16 1:44 Microcyte) AM) [facility] CampusYxwairtICNZEIVUVT2985-67-53 06:44:00 Test Item Value Reference Range Interpretation Comments Giant Plt (test code Moderate *ABN*(02/13/16 = Giant Plt) 1:44 AM) [facility] CampusWbevlihRKNZVFGOAV1375-33-60 06:44:00 Test Item Value Reference Range Interpretation Comments Segs (test code = Segs) 75.2 45.0-75.0 [facility] CampusHxcfbfcGQTEFNVZSQ8318-25-04 06:44:00 Test Item Value Reference Range Interpretation Comments Hypochrom (test code = 1+ (02/13/16 1:44 AM) Hypochrom) [facility] CampusKrxarlvFOWGCQGBSH9524-41-10 06:44:00 Test Item Value Reference Range Interpretation Comments Eosinophils (test code = 0.7 See_Comment [A utomated message] The Eosinophils) system which ge nerated this result tra nsmitted reference range : <=4.0. The reference r ozzy was not used to int erpret this result as normal/abnormal . [facility] CampusXqbtonoNMZMZOLOZR9859-75-77 06:44:00 Test Item Value Reference Range Interpretation Comments Lymphocytes (test code = Lymphocytes) 21.3 20.0-40.0 [facility] CampusEbbpiltHZRWUFEZJH2937-68-28 06:44:00 Test Item Value Reference Range Interpretation Comments Monocytes (test code = Monocytes) 2.7 2.0-12.0 [facility] CampusWrbgaepNVSOCYFCJL6645-48-63 06:44:00 Test Item Value Reference Range Interpretation Comments MPV (test code = MPV) 9.5 7.4-10.4 [facility] CampusYczpdtvTWGFCORPKQ4943-69-27 06:44:00 Test Item Value Reference Range Interpretation Comments RDW (test code = RDW) 17.8 11.5-14.5 [facility] CampusZrgbnleJATPFVCXPT5698-25-11 06:44:00 Test Item Value Reference Range Interpretation Comments MCV (test code = MCV) 73.2 80.0-98.0 [facility] CampusVkeepdsZYQTGDEWDX9518-12-76 06:44:00 Test Item Value Reference Range Interpretation Comments MCH (test code = MCH) 21.9 pg 27.0-31.0 [facility] CampusRwznzwqIFMZZDPVTW8974-61-88 06:44:00 Test Item Value Reference Range Interpretation Comments Hct (test code = Hct) 27.2 36.0-48.0 [facility] CampusQpbhgvtJAPGDCFTYL1203-56-71 06:44:00 Test Item Value Reference Range Interpretation Comments MCHC (test code = MCHC) 29.9 32.0-36.0 [facility] CampusHqrkwszDTVIAXYUBZ1706-51-07 06:44:00 Test Item Value Reference Range Interpretation Comments Platelet (test code = Platelet) 400 133-450 [facility] CampusMuiwsfpVSHJYLEJED6462-33-71 06:44:00 Test Item Value Reference Range Interpretation Comments WBC (test code = WBC) 12.4 3.7-10.4 [facility] CampusWrncyliOSXUPITGXX0338-49-80 06:44:00 Test Item Value Reference Range Interpretation Comments RBC (test code = RBC) 3.72 4.20-5.40 [facility] CampusHjsvrlzBKSZVGPJMD0003-78-96 06:44:00 Test Item Value Reference Range Interpretation Comments Hgb (test code = Hgb) 8.1 12.0-16.0 [facility]AMKLLRLPU[facility]64[facility] 06:44:00 Test Item Value Reference Range Interpretation Comments PTT (test code = PTT) 27.2 s 22.9-35.8 [facility]EcpciasWMGNKIYTND9484-62-44 06:44:00 Test Item Value Reference Range Interpretation Comments PT (test code = PT) 14.7 s 12.0-14.7 [facility]AdiuhbbXGDWCBNWNI1384-16-40 06:44:00 Test Item Value Reference Range Interpretation Comments INR (test code = INR) 1.12 0.85-1.17 [facility] [employer] JESYZDV4056-61-48 07:51:00 Test Item Value Reference Range Interpretation Comments ABO/Rh (test code = ABO/Rh) A POS [facility] [employer] SUWFPDB6732-64-06 07:51:00 Test Item Value Reference Range Interpretation Comments Antibody Scrn (test Negative (09/04/14 1:51 code = Antibody Scrn) AM) [facility] [id number] 07:51:00 Test Item Value Reference Range Interpretation Comments Albumin Lvl (test code = Albumin Lvl) 3.4 3.5-5.0 [facility] [id number] 07:51:00 Test Item Value Reference Range Interpretation Comments Alk Phos (test code = Alk Phos) 64 39-136 [facility] [id number] 07:51:00 Test Item Value Reference Range Interpretation Comments ALT (test code = ALT) 18 See_Comment [Auto mated message] The system which ge nerated this result transmit gaye reference range : <=65. The reference range was not used to interpr et this result as satish l/abnormal. [employer]2015-01-23 07:51:00 Test Item Value Reference Range Interpretation Comments AST (test code = AST) 12 See_Comment [Auto mated message] The system which ge nerated this result transmit gaye reference range : <=37. The reference range was not used to interpr et this result as satish l/abnormal. [employer]2015-01-23 07:51:00 Test Item Value Reference Range Interpretation Comments eGFR (test code = eGFR) 93 [facility]2015-01-23 07:51:00 Test Item Value Reference Range Interpretation Comments Bili Total (test code = Bili Total) 0.3 0.2-1.3 [facility]2015-01-23 07:51:00 Test Item Value Reference Range Interpretation Comments Chloride Lvl (test code = Chloride Lvl) 108 95-109 [facility]2015-01-23 07:51:00 Test Item Value Reference Range Interpretation Comments Sodium Lvl (test code = Sodium Lvl) 138 135-145 [facility]2015-01-23 07:51:00 Test Item Value Reference Range Interpretation Comments Potassium Lvl (test code = Potassium 3.9 3.5-5.1 Lvl) [facility]2015-01-23 07:51:00 Test Item Value Reference Range Interpretation Comments CO2 (test code = CO2) 22 24-32 [facility]2015-01-23 07:51:00 Test Item Value Reference Range Interpretation Comments Calcium Lvl (test code = Calcium Lvl) 8.8 8.5-10.5 [facility]2015-01-23 07:51:00 Test Item Value Reference Range Interpretation Comments Glucose Lvl (test code = Glucose Lvl) 98 70-99 [facility]2015-01-23 07:51:00 Test Item Value Reference Range Interpretation Comments Total Protein (test code = Total 7.3 6.4-8.4 Protein) [facility]2015-01-23 07:51:00 Test Item Value Reference Range Interpretation Comments BUN (test code = BUN) 12 - [facility]2015-01-23 07:51:00 Test Item Value Reference Range Interpretation Comments Creatinine Lvl (test code = Creatinine 0.8 0.5-1.4 Lvl) [facility]2015-01-23 07:51:00 Test Item Value Reference Range Interpretation Comments AGAP (test code = AGAP) 11.9 10.0-20.0 [facility]2015-01-23 07:51:00 Test Item Value Reference Range Interpretation Comments B/C Ratio (test code = B/C Ratio) 15 6-25 [facility]2015-01-23 07:51:00 Test Item Value Reference Range Interpretation Comments Globulin (test code = Globulin) 3.9 2.0-4.0 [facility] [id number] 07:51:00 Test Item Value Reference Range Interpretation Comments A/G Ratio (test code = A/G Ratio) 0.9 0.7-1.6 [facility]SgsixdcAJFGKNENDQGGI2268-59-52 07:51:00 Test Item Value Reference Range Interpretation Comments hCG Tot (test code = hCG Tot) no gt [facility] CampusQtcuzaiZHMOAXUSJM1795-44-47 07:51:00 Test Item Value Reference Range Interpretation Comments MCHC (test code = MCHC) 33.8 32.0-36.0 [facility] CampusOjpsjlsTKHXTTRBRE3029-21-03 07:51:00 Test Item Value Reference Range Interpretation Comments MCH (test code = MCH) 30.3 pg 27.0-31.0 [facility] CampusHaiojsxXBUQMZTEOU1010-84-72 07:51:00 Test Item Value Reference Range Interpretation Comments RDW (test code = RDW) 13.0 11.5-14.5 [facility] CampusPjeycqnBTJWMCMYDV7380-40-01 07:51:00 Test Item Value Reference Range Interpretation Comments MPV (test code = MPV) 8.4 7.4-10.4 [facility] CampusVqpxoefMGGKNDJNOH0652-48-44 07:51:00 Test Item Value Reference Range Interpretation Comments Platelet (test code = Platelet) 356 133-450 [facility] CampusKosnyhyXLTJHGFRPQ1725-77-35 07:51:00 Test Item Value Reference Range Interpretation Comments RBC (test code = RBC) 4.45 4.20-5.40 [facility] CampusYmdknucRNARGNQUZF9702-98-24 07:51:00 Test Item Value Reference Range Interpretation Comments WBC (test code = WBC) 12.9 3.7-10.4 [facility] CampusPrxgjjnLTQNOHSSOY6447-25-51 07:51:00 Test Item Value Reference Range Interpretation Comments Hgb (test code = Hgb) 13.5 12.0-16.0 [facility] CampusXsvfwsqXAFIRNATUM4173-87-95 07:51:00 Test Item Value Reference Range Interpretation Comments MCV (test code = MCV) 89.7 80.0-98.0 [facility] CampusWrrabneNUPCMUAJOT9918-61-96 07:51:00 Test Item Value Reference Range Interpretation Comments Hct (test code = Hct) 39.9 36.0-48.0 [facility] CampusXysumiyTLRSUNRIZI1417-29-66 07:51:00 Test Item Value Reference Range Interpretation Comments Eosinophils # (test code 0.3 See_Comment [A utomated message] The = Eosinophils #) system whic h generated this result tra nsmitted reference range : <=0.5. The reference r ozzy was not used to int erpret this result as normal/abnormal . [facility] CampusSljojsuYQBRWKBJYY3323-09-99 07:51:00 Test Item Value Reference Range Interpretation Comments Lymphocytes # (test code = Lymphocytes 3.6 1.0-5.5 #) [facility] CampusPfqckulAIPILJRGAQ1680-05-56 07:51:00 Test Item Value Reference Range Interpretation Comments Monocytes # (test code 0.7 See_Comment [Aut omated message] The = Monocytes #) system which generated this result tra nsmitted reference range : <=0.8. The reference r ozzy was not used to int erpret this result as normal/abnormal . [facility] CampusWrwfhlqUXCBNJLETB7222-40-20 07:51:00 Test Item Value Reference Range Interpretation Comments Segs (test code = Segs) 63.9 45.0-75.0 [facility] CampusQdpqkntDFOFSZPIHH6860-26-64 07:51:00 Test Item Value Reference Range Interpretation Comments Segs-Bands # (test code = Segs-Bands #) 8.2 1.5-8.1 [facility] CampusAuzoveyMJIHMYHPHJ4611-30-01 07:51:00 Test Item Value Reference Range Interpretation Comments Basophils (test code = 0.7 See_Comment [Aut omated message] The Basophils) system which ge nerated this result tra nsmitted reference range : <=1.0. The reference r ozzy was not used to int erpret this result as normal/abnormal . [facility] CampusXrwxzssVPHMDINIDG8164-38-58 07:51:00 Test Item Value Reference Range Interpretation Comments Monocytes (test code = Monocytes) 5.4 2.0-12.0 [facility] CampusPhswpxeTPBZUNZMWU0486-57-93 07:51:00 Test Item Value Reference Range Interpretation Comments Eosinophils (test code = 2.3 See_Comment [A utomated message] The Eosinophils) system which ge nerated this result tra nsmitted reference range : <=4.0. The reference r ozzy was not used to int erpret this result as normal/abnormal . [facility] CampusDvmvuwbGEBOVJNUQQ6585-39-89 07:51:00 Test Item Value Reference Range Interpretation Comments Lymphocytes (test code = Lymphocytes) 27.7 20.0-40.0 [facility] CampusDtvidwcEJEXFKMJVQ3108-73-11 07:51:00 Test Item Value Reference Range Interpretation Comments Basophils # (test code 0.1 See_Comment [Aut omated message] The = Basophils #) system which generated this result tra nsmitted reference range : <=0.2. The reference r ozzy was not used to int erpret this result as normal/abnormal . [facility] AND [id number] 07:51:00 Test Item Value Reference Range Interpretation Comments UA Urobilinogen (test code = UA 1.0 0.1-1.0 Urobilinogen) [facility] AND [id number] 07:51:00 Test Item Value Reference Range Interpretation Comments UA Turbidity (test code Cloudy *ABN*(09/04/14 = UA Turbidity) 1:51 AM) [facility] AND [id number] 07:51:00 Test Item Value Reference Range Interpretation Comments UA Color (test code = Red *ABN*(09/04/14 1:51 UA Color) AM) [facility] AND [id number] 07:51:00 Test Item Value Reference Range Interpretation Comments UA Ketones (test code Negative *NA*(09/04/14 = UA Ketones) 1:51 AM) [facility] AND [id number] 07:51:00 Test Item Value Reference Range Interpretation Comments UA Glucose (test code Negative (09/04/14 1:51 = UA Glucose) AM) [facility] AND [id number] 07:51:00 Test Item Value Reference Range Interpretation Comments UA Protein (test code = Trace *ABN*(09/04/14 UA Protein) 1:51 AM) [facility] AND [id number] 07:51:00 Test Item Value Reference Range Interpretation Comments UA pH (test code = UA pH) 8.0 1 5.0-8.0 [facility] AND [id number] 07:51:00 Test Item Value Reference Range Interpretation Comments UA Spec Grav (test code = UA Spec 1.015 1 Grav) [facility] AND [id number] 07:51:00 Test Item Value Reference Range Interpretation Comments UA Bili (test code = Negative *NA*(09/04/14 UA Bili) 1:51 AM) [facility] AND [id number] 07:51:00 Test Item Value Reference Range Interpretation Comments UA Blood (test code = Large *ABN*(09/04/14 UA Blood) 1:51 AM) [facility] AND [id number] 07:51:00 Test Item Value Reference Range Interpretation Comments UA Leuk Est (test Negative (09/04/14 1:51 code = UA Leuk Est) AM) [facility] AND [id number] 07:51:00 Test Item Value Reference Range Interpretation Comments UA Nitrite (test code Negative (09/04/14 1:51 = UA Nitrite) AM) [facility] AND [id number] 07:51:00 Test Item Value Reference Range Interpretation Comments UA Amorph Joselin (test code = UA Few /HPF Amorph Joselin) [facility] AND [id number] 07:51:00 Test Item Value Reference Range Interpretation Comments UA RBC (test code 51-100 /HPF See_Comment [Automate d message] The = UA RBC) system which ge nerated this result tra nsmitted reference range : <=2. The reference r ozzy was not used to int erpret this result as normal/abnormal . [facility] AND [id number] 07:51:00 Test Item Value Reference Range Interpretation Comments UA WBC (test code = UA WBC) 6-10 /HPF [facility] AND [id number] 07:51:00 Test Item Value Reference Range Interpretation Comments UA Bacteria (test code = UA Few /HPF Bacteria) [facility] AND [id number] 07:51:00 Test Item Value Reference Range Interpretation Comments UA Sq Epi (test code = UA Sq Occasional /LPF Epi) [id number] 07:51:00 Test Item Value Reference Range Interpretation Comments Globulin (test code = Globulin) 3.9 2.0-4.0 [facility] [id number] 07:51:00 Test Item Value Reference Range Interpretation Comments A/G Ratio (test code = A/G Ratio) 0.9 0.7-1.6 [facility]RuuknpaKEGGVPYKFTRJV1213-38-35 07:51:00 Test Item Value Reference Range Interpretation Comments hCG Tot (test code = hCG Tot) no gt [facility] CampusHitoqkuYFLQAJSOQF8663-69-62 07:51:00 Test Item Value Reference Range Interpretation Comments MCHC (test code = MCHC) 33.8 32.0-36.0 [facility] CampusWhktbckOJORBTOTDU3064-63-15 07:51:00 Test Item Value Reference Range Interpretation Comments MCH (test code = MCH) 30.3 pg 27.0-31.0 [facility] CampusYzonrodBUOYUHHFHJ6989-10-88 07:51:00 Test Item Value Reference Range Interpretation Comments RDW (test code = RDW) 13.0 11.5-14.5 [facility] CampusIxutkfxMFIVUHPCEY2006-36-55 07:51:00 Test Item Value Reference Range Interpretation Comments MPV (test code = MPV) 8.4 7.4-10.4 [facility] CampusQlgitgmQHGIRSKZNG6716-79-11 07:51:00 Test Item Value Reference Range Interpretation Comments Platelet (test code = Platelet) 356 133-450 [facility] CampusIwcjkolSGLLLTGJTY5126-45-36 07:51:00 Test Item Value Reference Range Interpretation Comments RBC (test code = RBC) 4.45 4.20-5.40 [facility]SbjxsdiAHXHKPGWVC5950-59-49 07:51:00 Test Item Value Reference Range Interpretation Comments WBC (test code = WBC) 12.9 3.7-10.4 [facility] CampusOknkehpNJUNZSIGCI2522-40-22 07:51:00 Test Item Value Reference Range Interpretation Comments Hgb (test code = Hgb) 13.5 12.0-16.0 [facility] CampusOslbpmnHCWAIQYDXR0384-67-43 07:51:00 Test Item Value Reference Range Interpretation Comments MCV (test code = MCV) 89.7 80.0-98.0 [facility] CampusHixlrubUTXLTILNTS0147-50-77 07:51:00 Test Item Value Reference Range Interpretation Comments Hct (test code = Hct) 39.9 36.0-48.0 [facility] CampusFqevmmiFKUZFTODDQ8987-29-73 07:51:00 Test Item Value Reference Range Interpretation Comments Eosinophils # (test code 0.3 See_Comment [A utomated message] The = Eosinophils #) system whic h generated this result tra nsmitted reference range : <=0.5. The reference r ozzy was not used to int erpret this result as normal/abnormal . [facility] CampusSxrapwnOIJSEREJNV9701-33-93 07:51:00 Test Item Value Reference Range Interpretation Comments Lymphocytes # (test code = Lymphocytes 3.6 1.0-5.5 #) [facility] CampusHpunoryASHAUSVRRO3420-57-98 07:51:00 Test Item Value Reference Range Interpretation Comments Monocytes # (test code 0.7 See_Comment [Aut omated message] The = Monocytes #) system which generated this result tra nsmitted reference range : <=0.8. The reference r ozzy was not used to int erpret this result as normal/abnormal . [facility] CampusIfksgwfEHZRHGUIBN9784-26-60 07:51:00 Test Item Value Reference Range Interpretation Comments Segs (test code = Segs) 63.9 45.0-75.0 [facility] CampusNtxmqltILITTUMCUQ1046-83-55 07:51:00 Test Item Value Reference Range Interpretation Comments Segs-Bands # (test code = Segs-Bands #) 8.2 1.5-8.1 [facility] CampusPelfvcyZHKQKDEPRM0835-09-39 07:51:00 Test Item Value Reference Range Interpretation Comments Basophils (test code = 0.7 See_Comment [Aut omated message] The Basophils) system which ge nerated this result tra nsmitted reference range : <=1.0. The reference r ozzy was not used to int erpret this result as normal/abnormal . [facility] CampusXzjqvctVKKJGZIQVO8279-46-39 07:51:00 Test Item Value Reference Range Interpretation Comments Monocytes (test code = Monocytes) 5.4 2.0-12.0 [facility] CampusOyakcljZNPTRLGXRJ1676-97-27 07:51:00 Test Item Value Reference Range Interpretation Comments Eosinophils (test code = 2.3 See_Comment [A utomated message] The Eosinophils) system which ge nerated this result tra nsmitted reference range : <=4.0. The reference r ozzy was not used to int erpret this result as normal/abnormal . [facility] CampusScflqetFIJWZPWZVE6948-91-07 07:51:00 Test Item Value Reference Range Interpretation Comments Lymphocytes (test code = Lymphocytes) 27.7 20.0-40.0 [facility]UL[facility]NNESL9002-[facility]-92 07:51:00 Test Item Value Reference Range Interpretation Comments Basophils # (test code 0.1 See_Comment [Aut omated message] The = Basophils #) system which generated this result tra nsmitted reference range : <=0.2. The reference r ozzy was not used to int erpret this result as normal/abnormal . [facility] AND [id number] 07:51:00 Test Item Value Reference Range Interpretation Comments UA Urobilinogen (test code = UA 1.0 0.1-1.0 Urobilinogen) [facility] AND [id number] 07:51:00 Test Item Value Reference Range Interpretation Comments UA Turbidity (test code Cloudy *ABN*(09/04/14 = UA Turbidity) 1:51 AM) [facility] AND [id number] 07:51:00 Test Item Value Reference Range Interpretation Comments UA Color (test code = Red *ABN*(09/04/14 1:51 UA Color) AM) [facility] AND [id number] 07:51:00 Test Item Value Reference Range Interpretation Comments UA Ketones (test code Negative *NA*(09/04/14 = UA Ketones) 1:51 AM) [facility] AND [id number] 07:51:00 Test Item Value Reference Range Interpretation Comments UA Glucose (test code Negative (09/04/14 1:51 = UA Glucose) AM) [facility] AND [id number] 07:51:00 Test Item Value Reference Range Interpretation Comments UA Protein (test code = Trace *ABN*(09/04/14 UA Protein) 1:51 AM) [facility] AND [id number] 07:51:00 Test Item Value Reference Range Interpretation Comments UA pH (test code = UA pH) 8.0 1 5.0-8.0 [facility] AND [id number] 07:51:00 Test Item Value Reference Range Interpretation Comments UA Spec Grav (test code = UA Spec 1.015 1 Grav) [facility] AND [id number] 07:51:00 Test Item Value Reference Range Interpretation Comments UA Bili (test code = Negative *NA*(09/04/14 UA Bili) 1:51 AM) [facility] AND [id number] 07:51:00 Test Item Value Reference Range Interpretation Comments UA Blood (test code = Large *ABN*(09/04/14 UA Blood) 1:51 AM) [facility] AND [id number] 07:51:00 Test Item Value Reference Range Interpretation Comments UA Leuk Est (test Negative (09/04/14 1:51 code = UA Leuk Est) AM) [facility] AND [id number] 07:51:00 Test Item Value Reference Range Interpretation Comments UA Nitrite (test code Negative (09/04/14 1:51 = UA Nitrite) AM) [facility] AND [id number] 07:51:00 Test Item Value Reference Range Interpretation Comments UA Amorph Joselin (test code = UA Few /HPF Amorph Joselin) [facility] AND [id number] 07:51:00 Test Item Value Reference Range Interpretation Comments UA RBC (test code 51-100 /HPF See_Comment [Automate d message] The = UA RBC) system which ge nerated this result tra nsmitted reference range : <=2. The reference r ozzy was not used to int erpret this result as normal/abnormal . [facility] AND [id number] 07:51:00 Test Item Value Reference Range Interpretation Comments UA WBC (test code = UA WBC) 6-10 /HPF [facility] AND [id number] 07:51:00 Test Item Value Reference Range Interpretation Comments UA Bacteria (test code = UA Few /HPF Bacteria) [facility] AND [id number] 07:51:00 Test Item Value Reference Range Interpretation Comments UA Sq Epi (test code = UA Sq Occasional /LPF Epi) [facility] [id number] 07:51:00 Test Item Value Reference Range Interpretation Comments ABO/Rh (test code = ABO/Rh) A POS [facility] [id number] 07:51:00 Test Item Value Reference Range Interpretation Comments Antibody Scrn (test Negative (09/04/14 1:51 code = Antibody Scrn) AM) [facility] [place] [id number] 07:51:00 Test Item Value Reference Range Interpretation Comments Albumin Lvl (test code = Albumin Lvl) 3.4 3.5-5.0 [facility]2015-01-23 07:51:00 Test Item Value Reference Range Interpretation Comments Alk Phos (test code = Alk Phos) 64 39-136 [facility]2015-01-23 07:51:00 Test Item Value Reference Range Interpretation Comments ALT (test code = ALT) 18 See_Comment [Auto mated message] The system which ge nerated this result transmit gaye reference range : <=65. The reference range was not used to interpr et this result as satish l/abnormal. [facility]2015-01-23 07:51:00 Test Item Value Reference Range Interpretation Comments AST (test code = AST) 12 See_Comment [Auto mated message] The system which ge nerated this result transmit gaye reference range : <=37. The reference range was not used to interpr et this result as satish l/abnormal. [facility]2015-01-23 07:51:00 Test Item Value Reference Range Interpretation Comments eGFR (test code = eGFR) 93 [facility]2015-01-23 07:51:00 Test Item Value Reference Range Interpretation Comments Bili Total (test code = Bili Total) 0.3 0.2-1.3 [facility]2015-01-23 07:51:00 Test Item Value Reference Range Interpretation Comments Chloride Lvl (test code = Chloride Lvl) 108 95-109 [facility]2015-01-23 07:51:00 Test Item Value Reference Range Interpretation Comments Sodium Lvl (test code = Sodium Lvl) 138 135-145 [facility]2015-01-23 07:51:00 Test Item Value Reference Range Interpretation Comments Potassium Lvl (test code = Potassium 3.9 3.5-5.1 Lvl) [facility]2015-01-23 07:51:00 Test Item Value Reference Range Interpretation Comments CO2 (test code = CO2) 22 24-32 [facility]2015-01-23 07:51:00 Test Item Value Reference Range Interpretation Comments Calcium Lvl (test code = Calcium Lvl) 8.8 8.5-10.5 [facility]2015-01-23 07:51:00 Test Item Value Reference Range Interpretation Comments Glucose Lvl (test code = Glucose Lvl) 98 70-99 [facility]2015-01-23 07:51:00 Test Item Value Reference Range Interpretation Comments Total Protein (test code = Total 7.3 6.4-8.4 Protein) [facility]2015-01-23 07:51:00 Test Item Value Reference Range Interpretation Comments BUN (test code = BUN) 12 7-22 [facility]2015-01-23 07:51:00 Test Item Value Reference Range Interpretation Comments Creatinine Lvl (test code = Creatinine 0.8 0.5-1.4 Lvl) [facility]2015-01-23 07:51:00 Test Item Value Reference Range Interpretation Comments AGAP (test code = AGAP) 11.9 10.0-20.0 [facility]2015-01-23 07:51:00 Test Item Value Reference Range Interpretation Comments B/C Ratio (test code = B/C Ratio) 15 6-25 [facility]2015-01-23 07:51:00 Test Item Value Reference Range Interpretation Comments Globulin (test code = Globulin) 3.9 2.0-4.0 [facility]2015-01-23 07:51:00 Test Item Value Reference Range Interpretation Comments A/G Ratio (test code = A/G Ratio) 0.9 0.7-1.6 [place] [id number] 07:51:00 Test Item Value Reference Range Interpretation Comments hCG Tot (test code = hCG Tot) no gt [facility] CampusBdlrkhxCHBVQZQFKL0653-81-06 07:51:00 Test Item Value Reference Range Interpretation Comments MCHC (test code = MCHC) 33.8 32.0-36.0 [facility] CampusOptpdhiUJSLCULROU0097-88-61 07:51:00 Test Item Value Reference Range Interpretation Comments MCH (test code = MCH) 30.3 pg 27.0-31.0 [facility] CampusLitindlRCEOZSYWNK7631-57-12 07:51:00 Test Item Value Reference Range Interpretation Comments RDW (test code = RDW) 13.0 11.5-14.5 [facility] CampusGsvgcfeKNPTFBFWUW3530-63-05 07:51:00 Test Item Value Reference Range Interpretation Comments MPV (test code = MPV) 8.4 7.4-10.4 [place] [id number] 07:51:00 Test Item Value Reference Range Interpretation Comments Platelet (test code = Platelet) 356 133-450 [facility] CampusXbjwhfmPMRHUSFCJG0147-27-08 07:51:00 Test Item Value Reference Range Interpretation Comments RBC (test code = RBC) 4.45 4.20-5.40 [facility] CampusZdonquiLRFNDAFAAI2383-41-95 07:51:00 Test Item Value Reference Range Interpretation Comments WBC (test code = WBC) 12.9 3.7-10.4 [facility] CampusSvdvqldWWDWNBRCJA6197-19-69 07:51:00 Test Item Value Reference Range Interpretation Comments Hgb (test code = Hgb) 13.5 12.0-16.0 [facility] CampusTqupbdjLDGELHGSRN3992-38-29 07:51:00 Test Item Value Reference Range Interpretation Comments MCV (test code = MCV) 89.7 80.0-98.0 [facility] CampusCnqvgjlIGYILWYMQD7700-84-91 07:51:00 Test Item Value Reference Range Interpretation Comments Hct (test code = Hct) 39.9 36.0-48.0 [facility] CampusUpqevqoLSLEIJCSOO7074-46-11 07:51:00 Test Item Value Reference Range Interpretation Comments Eosinophils # (test code 0.3 See_Comment [A utomated message] The = Eosinophils #) system whic h generated this result tra nsmitted reference range : <=0.5. The reference r ozzy was not used to int erpret this result as normal/abnormal . [facility] CampusCguxxkgSJPMDKVZDP0277-73-35 07:51:00 Test Item Value Reference Range Interpretation Comments Lymphocytes # (test code = Lymphocytes 3.6 1.0-5.5 #) [facility] CampusLtultdlIOCOYIPQIN4708-76-62 07:51:00 Test Item Value Reference Range Interpretation Comments Monocytes # (test code 0.7 See_Comment [Aut omated message] The = Monocytes #) system which generated this result tra nsmitted reference range : <=0.8. The reference r ozzy was not used to int erpret this result as normal/abnormal . [facility] CampusSamspsaEAUOXNAKJS6023-16-81 07:51:00 Test Item Value Reference Range Interpretation Comments Segs (test code = Segs) 63.9 45.0-75.0 [facility] CampusErpqybnBGLTEBOPBR9044-19-36 07:51:00 Test Item Value Reference Range Interpretation Comments Segs-Bands # (test code = Segs-Bands #) 8.2 1.5-8.1 [facility] CampusNdlqqmqSDTMKQVONV3274-47-89 07:51:00 Test Item Value Reference Range Interpretation Comments Basophils (test code = 0.7 See_Comment [Aut omated message] The Basophils) system which ge nerated this result tra nsmitted reference range : <=1.0. The reference r ozzy was not used to int erpret this result as normal/abnormal . [facility] CampusNldsfieNCWYAYGPTE1294-77-13 07:51:00 Test Item Value Reference Range Interpretation Comments Monocytes (test code = Monocytes) 5.4 2.0-12.0 [facility] CampusPmlyujeMMTESCZWHK5699-85-96 07:51:00 Test Item Value Reference Range Interpretation Comments Eosinophils (test code = 2.3 See_Comment [A utomated message] The Eosinophils) system which ge nerated this result tra nsmitted reference range : <=4.0. The reference r ozzy was not used to int erpret this result as normal/abnormal . [facility] CampusDjkfchgDLMKFOOWLG5330-48-20 07:51:00 Test Item Value Reference Range Interpretation Comments Lymphocytes (test code = Lymphocytes) 27.7 20.0-40.0 [facility] CampusIvzimxfTESQMXHKOZ4380-19-66 07:51:00 Test Item Value Reference Range Interpretation Comments Basophils # (test code 0.1 See_Comment [Aut omated message] The = Basophils #) system which generated this result tra nsmitted reference range : <=0.2. The reference r ozzy was not used to int erpret this result as normal/abnormal . [facility]2015-01-23 07:51:00 Test Item Value Reference Range Interpretation Comments UA Urobilinogen (test code = UA 1.0 0.1-1.0 Urobilinogen) [facility] AND [id number] 07:51:00 Test Item Value Reference Range Interpretation Comments UA Turbidity (test code Cloudy *ABN*(09/04/14 = UA Turbidity) 1:51 AM) [facility]2015-01-23 07:51:00 Test Item Value Reference Range Interpretation Comments UA Color (test code = Red *ABN*(09/04/14 1:51 UA Color) AM) [facility] AND [id number] 07:51:00 Test Item Value Reference Range Interpretation Comments UA Ketones (test code Negative *NA*(09/04/14 = UA Ketones) 1:51 AM) [facility] AND [id number] 07:51:00 Test Item Value Reference Range Interpretation Comments UA Glucose (test code Negative (09/04/14 1:51 = UA Glucose) AM) [facility] AND [id number] 07:51:00 Test Item Value Reference Range Interpretation Comments UA Protein (test code = Trace *ABN*(09/04/14 UA Protein) 1:51 AM) [facility] AND [id number] 07:51:00 Test Item Value Reference Range Interpretation Comments UA pH (test code = UA pH) 8.0 1 5.0-8.0 [facility] AND [id number] 07:51:00 Test Item Value Reference Range Interpretation Comments UA Spec Grav (test code = UA Spec 1.015 1 Grav) [facility] AND [id number] 07:51:00 Test Item Value Reference Range Interpretation Comments UA Bili (test code = Negative *NA*(09/04/14 UA Bili) 1:51 AM) [facility] AND [id number] 07:51:00 Test Item Value Reference Range Interpretation Comments UA Blood (test code = Large *ABN*(09/04/14 UA Blood) 1:51 AM) [facility] AND [id number] 07:51:00 Test Item Value Reference Range Interpretation Comments UA Leuk Est (test Negative (09/04/14 1:51 code = UA Leuk Est) AM) [facility] AND [id number] 07:51:00 Test Item Value Reference Range Interpretation Comments UA Nitrite (test code Negative (09/04/14 1:51 = UA Nitrite) AM) [facility] AND [id number] 07:51:00 Test Item Value Reference Range Interpretation Comments UA Amorph Joselin (test code = UA Few /HPF Amorph Joselin) [facility] AND [id number] 07:51:00 Test Item Value Reference Range Interpretation Comments UA RBC (test code 51-100 /HPF See_Comment [Automate d message] The = UA RBC) system which ge nerated this result tra nsmitted reference range : <=2. The reference r ozzy was not used to int erpret this result as normal/abnormal . [facility] [id number] 07:51:00 Test Item Value Reference Range Interpretation Comments UA WBC (test code = UA WBC) 6-10 /HPF [facility] AND [id number] 07:51:00 Test Item Value Reference Range Interpretation Comments UA Bacteria (test code = UA Few /HPF Bacteria) [facility] AND [id number] 07:51:00 Test Item Value Reference Range Interpretation Comments UA Sq Epi (test code = UA Sq Occasional /LPF Epi) [facility] [id number] 07:51:00 Test Item Value Reference Range Interpretation Comments ABO/Rh (test code = ABO/Rh) A POS [facility] [employer] [id number] 07:51:00 Test Item Value Reference Range Interpretation Comments Antibody Scrn (test Negative (09/04/14 1:51 code = Antibody Scrn) AM) [facility] [id number] 07:51:00 Test Item Value Reference Range Interpretation Comments Albumin Lvl (test code = Albumin Lvl) 3.4 3.5-5.0 [facility] [id number] 07:51:00 Test Item Value Reference Range Interpretation Comments Alk Phos (test code = Alk Phos) 64 39-136 [facility] [id number] 07:51:00 Test Item Value Reference Range Interpretation Comments ALT (test code = ALT) 18 See_Comment [Auto mated message] The system which ge nerated this result transmit gaye reference range : <=65. The reference range was not used to interpr et this result as satish l/abnormal. [facility] [id number] 07:51:00 Test Item Value Reference Range Interpretation Comments AST (test code = AST) 12 See_Comment [Auto mated message] The system which ge nerated this result transmit gaye reference range : <=37. The reference range was not used to interpr et this result as satish l/abnormal. [facility] [id number] 07:51:00 Test Item Value Reference Range Interpretation Comments eGFR (test code = eGFR) 93 [facility]2015-01-23 07:51:00 Test Item Value Reference Range Interpretation Comments Bili Total (test code = Bili Total) 0.3 0.2-1.3 [facility]2015-01-23 07:51:00 Test Item Value Reference Range Interpretation Comments Chloride Lvl (test code = Chloride Lvl) 108 95-109 [facility]2015-01-23 07:51:00 Test Item Value Reference Range Interpretation Comments Sodium Lvl (test code = Sodium Lvl) 138 135-145 [facility]2015-01-23 07:51:00 Test Item Value Reference Range Interpretation Comments Potassium Lvl (test code = Potassium 3.9 3.5-5.1 Lvl) [facility]2015-01-23 07:51:00 Test Item Value Reference Range Interpretation Comments CO2 (test code = CO2) 22 24-32 [facility]2015-01-23 07:51:00 Test Item Value Reference Range Interpretation Comments Calcium Lvl (test code = Calcium Lvl) 8.8 8.5-10.5 [facility]2015-01-23 07:51:00 Test Item Value Reference Range Interpretation Comments Glucose Lvl (test code = Glucose Lvl) 98 70-99 [facility]2015-01-23 07:51:00 Test Item Value Reference Range Interpretation Comments Total Protein (test code = Total 7.3 6.4-8.4 Protein) [facility]2015-01-23 07:51:00 Test Item Value Reference Range Interpretation Comments BUN (test code = BUN) 12 - [facility]2015-01-23 07:51:00 Test Item Value Reference Range Interpretation Comments Creatinine Lvl (test code = Creatinine 0.8 0.5-1.4 Lvl) [facility]2015-01-23 07:51:00 Test Item Value Reference Range Interpretation Comments AGAP (test code = AGAP) 11.9 10.0-20.0 [facility]2015-01-23 07:51:00 Test Item Value Reference Range Interpretation Comments B/C Ratio (test code = B/C Ratio) 15 6-25 [facility]2015-01-23 07:51:00 Test Item Value Reference Range Interpretation Comments Globulin (test code = Globulin) 3.9 2.0-4.0 [id number] 07:51:00 Test Item Value Reference Range Interpretation Comments A/G Ratio (test code = A/G Ratio) 0.9 0.7-1.6 [facility]UIWLSAEWHHPL1706-19-58 07:51:00 Test Item Value Reference Range Interpretation Comments hCG Tot (test code = hCG Tot) no gt [facility] CampusNshwvwyXBVQXTJCUC3965-62-07 07:51:00 Test Item Value Reference Range Interpretation Comments MCHC (test code = MCHC) 33.8 32.0-36.0 [facility] CampusZfyvhqjYOKWQRRUEP7148-00-75 07:51:00 Test Item Value Reference Range Interpretation Comments MCH (test code = MCH) 30.3 pg 27.0-31.0 [facility] CampusLbeluexCINBBYUNMM2437-70-34 07:51:00 Test Item Value Reference Range Interpretation Comments RDW (test code = RDW) 13.0 11.5-14.5 [facility] CampusAcpaljaHAVHKBYWAL4316-87-63 07:51:00 Test Item Value Reference Range Interpretation Comments MPV (test code = MPV) 8.4 7.4-10.4 [facility] CampusArnyrdcFUNQEZTHCH8347-90-45 07:51:00 Test Item Value Reference Range Interpretation Comments Platelet (test code = Platelet) 356 133-450 [facility] CampusIcqkqgaZXXUIUJYDN6277-51-04 07:51:00 Test Item Value Reference Range Interpretation Comments RBC (test code = RBC) 4.45 4.20-5.40 [facility] CampusPomoqulKSAFMIQSTE1262-62-89 07:51:00 Test Item Value Reference Range Interpretation Comments WBC (test code = WBC) 12.9 3.7-10.4 [facility] CampusBcvkzrzPWRLCGHCKE1282-62-16 07:51:00 Test Item Value Reference Range Interpretation Comments Hgb (test code = Hgb) 13.5 12.0-16.0 [facility] CampusPeixivePUPWYZOGFQ8071-01-07 07:51:00 Test Item Value Reference Range Interpretation Comments MCV (test code = MCV) 89.7 80.0-98.0 [facility] CampusJrssnnbQGBBXSXLAC7006-17-10 07:51:00 Test Item Value Reference Range Interpretation Comments Hct (test code = Hct) 39.9 36.0-48.0 [facility] CampusShuudzhHANITBVVZM0015-69-08 07:51:00 Test Item Value Reference Range Interpretation Comments Eosinophils # (test code 0.3 See_Comment [A utomated message] The = Eosinophils #) system whic h generated this result tra nsmitted reference range : <=0.5. The reference r ozzy was not used to int erpret this result as normal/abnormal . [facility] CampusElorrfrGPCULIJTMW3728-22-96 07:51:00 Test Item Value Reference Range Interpretation Comments Lymphocytes # (test code = Lymphocytes 3.6 1.0-5.5 #) [facility] CampusWydqmmwATJIRHRYXG4348-10-95 07:51:00 Test Item Value Reference Range Interpretation Comments Monocytes # (test code 0.7 See_Comment [Aut omated message] The = Monocytes #) system which generated this result tra nsmitted reference range : <=0.8. The reference r ozzy was not used to int erpret this result as normal/abnormal . [facility]WfyckfjMWUZYJIGXV9536-83-77 07:51:00 Test Item Value Reference Range Interpretation Comments Segs (test code = Segs) 63.9 45.0-75.0 [facility] CampusEuropydIPLRWFZKFT9615-54-22 07:51:00 Test Item Value Reference Range Interpretation Comments Segs-Bands # (test code = Segs-Bands #) 8.2 1.5-8.1 [facility] CampusVmhmqqtVRZMZLSPGI0981-05-38 07:51:00 Test Item Value Reference Range Interpretation Comments Basophils (test code = 0.7 See_Comment [Aut omated message] The Basophils) system which ge nerated this result tra nsmitted reference range : <=1.0. The reference r ozzy was not used to int erpret this result as normal/abnormal . [facility] CampusJtuhfvpSOGORSTMKM1940-93-40 07:51:00 Test Item Value Reference Range Interpretation Comments Monocytes (test code = Monocytes) 5.4 2.0-12.0 [facility] CampusIpzkwecSQPMVCKSZU3352-54-48 07:51:00 Test Item Value Reference Range Interpretation Comments Eosinophils (test code = 2.3 See_Comment [A utomated message] The Eosinophils) system which ge nerated this result tra nsmitted reference range : <=4.0. The reference r ozzy was not used to int erpret this result as normal/abnormal . [facility] CampusAprhteaTUOSNDSTCD5088-05-95 07:51:00 Test Item Value Reference Range Interpretation Comments Lymphocytes (test code = Lymphocytes) 27.7 20.0-40.0 [facility] CampusBdcdxubYNZDTXYUDH7535-10-82 07:51:00 Test Item Value Reference Range Interpretation Comments Basophils # (test code 0.1 See_Comment [Aut omated message] The = Basophils #) system which generated this result tra nsmitted reference range : <=0.2. The reference r ozzy was not used to int erpret this result as normal/abnormal . [facility] AND [id number] 07:51:00 Test Item Value Reference Range Interpretation Comments UA Urobilinogen (test code = UA 1.0 0.1-1.0 Urobilinogen) [facility] AND [id number] 07:51:00 Test Item Value Reference Range Interpretation Comments UA Turbidity (test code Cloudy *ABN*(09/04/14 = UA Turbidity) 1:51 AM) [facility] AND [id number] 07:51:00 Test Item Value Reference Range Interpretation Comments UA Color (test code = Red *ABN*(09/04/14 1:51 UA Color) AM) [facility] AND [id number] 07:51:00 Test Item Value Reference Range Interpretation Comments UA Ketones (test code Negative *NA*(09/04/14 = UA Ketones) 1:51 AM) [facility] AND [id number] 07:51:00 Test Item Value Reference Range Interpretation Comments UA Glucose (test code Negative (09/04/14 1:51 = UA Glucose) AM) [facility] AND [id number] 07:51:00 Test Item Value Reference Range Interpretation Comments UA Protein (test code = Trace *ABN*(09/04/14 UA Protein) 1:51 AM) [facility] AND [id number] 07:51:00 Test Item Value Reference Range Interpretation Comments UA pH (test code = UA pH) 8.0 1 5.0-8.0 [facility] AND [id number] 07:51:00 Test Item Value Reference Range Interpretation Comments UA Spec Grav (test code = UA Spec 1.015 1 Grav) [facility] AND [id number] 07:51:00 Test Item Value Reference Range Interpretation Comments UA Bili (test code = Negative *NA*(09/04/14 UA Bili) 1:51 AM) [facility] AND [id number] 07:51:00 Test Item Value Reference Range Interpretation Comments UA Blood (test code = Large *ABN*(09/04/14 UA Blood) 1:51 AM) [facility] AND [id number] 07:51:00 Test Item Value Reference Range Interpretation Comments UA Leuk Est (test Negative (09/04/14 1:51 code = UA Leuk Est) AM) [facility] AND [id number] 07:51:00 Test Item Value Reference Range Interpretation Comments UA Nitrite (test code Negative (09/04/14 1:51 = UA Nitrite) AM) [facility] AND [id number] 07:51:00 Test Item Value Reference Range Interpretation Comments UA Amorph Joselin (test code = UA Few /HPF Amorph Joselin) [facility] AND [id number] 07:51:00 Test Item Value Reference Range Interpretation Comments UA RBC (test code 51-100 /HPF See_Comment [Automate d message] The = UA RBC) system which ge nerated this result tra nsmitted reference range : <=2. The reference r ozzy was not used to int erpret this result as normal/abnormal . [facility] AND [id number] 07:51:00 Test Item Value Reference Range Interpretation Comments UA WBC (test code = UA WBC) 6-10 /HPF [facility] AND [id number] 07:51:00 Test Item Value Reference Range Interpretation Comments UA Bacteria (test code = UA Few /HPF Bacteria) [facility] AND [id number] 07:51:00 Test Item Value Reference Range Interpretation Comments UA Sq Epi (test code = UA Sq Occasional /LPF Epi) [facility] [employer] [id number] 07:51:00 Test Item Value Reference Range Interpretation Comments ABO/Rh (test code = ABO/Rh) A POS [facility] [employer] [id number] 07:51:00 Test Item Value Reference Range Interpretation Comments Antibody Scrn (test Negative (09/04/14 1:51 code = Antibody Scrn) AM) [facility]2015-01-23 07:51:00 Test Item Value Reference Range Interpretation Comments Albumin Lvl (test code = Albumin Lvl) 3.4 3.5-5.0 [place] [id number] 07:51:00 Test Item Value Reference Range Interpretation Comments Alk Phos (test code = Alk Phos) 64 39-136 [facility]2015-01-23 07:51:00 Test Item Value Reference Range Interpretation Comments ALT (test code = ALT) 18 See_Comment [Auto mated message] The system which ge nerated this result transmit gaye reference range : <=65. The reference range was not used to interpr et this result as satish l/abnormal. [facility]2015-01-23 07:51:00 Test Item Value Reference Range Interpretation Comments AST (test code = AST) 12 See_Comment [Auto mated message] The system which ge nerated this result transmit gaye reference range : <=37. The reference range was not used to interpr et this result as satish l/abnormal. [facility]2015-01-23 07:51:00 Test Item Value Reference Range Interpretation Comments eGFR (test code = eGFR) 93 [facility]2015-01-23 07:51:00 Test Item Value Reference Range Interpretation Comments Bili Total (test code = Bili Total) 0.3 0.2-1.3 [facility]2015-01-23 07:51:00 Test Item Value Reference Range Interpretation Comments Chloride Lvl (test code = Chloride Lvl) 108 95-109 [facility]2015-01-23 07:51:00 Test Item Value Reference Range Interpretation Comments Sodium Lvl (test code = Sodium Lvl) 138 135-145 [facility]2015-01-23 07:51:00 Test Item Value Reference Range Interpretation Comments Potassium Lvl (test code = Potassium 3.9 3.5-5.1 Lvl) [facility]2015-01-23 07:51:00 Test Item Value Reference Range Interpretation Comments CO2 (test code = CO2) 22 24-32 [facility]2015-01-23 07:51:00 Test Item Value Reference Range Interpretation Comments Calcium Lvl (test code = Calcium Lvl) 8.8 8.5-10.5 [facility]2015-01-23 07:51:00 Test Item Value Reference Range Interpretation Comments Glucose Lvl (test code = Glucose Lvl) 98 70-99 [facility]2015-01-23 07:51:00 Test Item Value Reference Range Interpretation Comments Total Protein (test code = Total 7.3 6.4-8.4 Protein) [facility]2015-01-23 07:51:00 Test Item Value Reference Range Interpretation Comments BUN (test code = BUN) 12 7-22 [facility]2015-01-23 07:51:00 Test Item Value Reference Range Interpretation Comments Creatinine Lvl (test code = Creatinine 0.8 0.5-1.4 Lvl) [facility]2015-01-23 07:51:00 Test Item Value Reference Range Interpretation Comments AGAP (test code = AGAP) 11.9 10.0-20.0 [facility]2015-01-23 07:51:00 Test Item Value Reference Range Interpretation Comments B/C Ratio (test code = B/C Ratio) 15 6-25 [facility]2015-01-23 07:51:00 Test Item Value Reference Range Interpretation Comments Globulin (test code = Globulin) 3.9 2.0-4.0 [facility]2015-01-23 07:51:00 Test Item Value Reference Range Interpretation Comments A/G Ratio (test code = A/G Ratio) 0.9 0.7-1.6 [facility]XMBM[facility]DPRGCY6834[facility]16-60 07:51:00 Test Item Value Reference Range Interpretation Comments hCG Tot (test code = hCG Tot) no gt [facility] CampusGfpbsebHWYCBTZGFO5719-26-81 07:51:00 Test Item Value Reference Range Interpretation Comments MCHC (test code = MCHC) 33.8 32.0-36.0 [facility] CampusAsjilmjQDIWZHVWFD1502-35-47 07:51:00 Test Item Value Reference Range Interpretation Comments MCH (test code = MCH) 30.3 pg 27.0-31.0 [facility] CampusPfxbuiiDMNPSUUPTI4752-06-81 07:51:00 Test Item Value Reference Range Interpretation Comments RDW (test code = RDW) 13.0 11.5-14.5 [facility] CampusKenpkofDGKRSWIFZZ8078-95-12 07:51:00 Test Item Value Reference Range Interpretation Comments MPV (test code = MPV) 8.4 7.4-10.4 [facility] CampusNcuxpctOOSYYEXLSU9226-02-18 07:51:00 Test Item Value Reference Range Interpretation Comments Platelet (test code = Platelet) 356 133-450 [facility] CampusQfwdonhXDJHVTZBZI5421-10-87 07:51:00 Test Item Value Reference Range Interpretation Comments RBC (test code = RBC) 4.45 4.20-5.40 [facility] CampusYusfobhRUDWJHEIQZ3385-25-09 07:51:00 Test Item Value Reference Range Interpretation Comments WBC (test code = WBC) 12.9 3.7-10.4 [facility] CampusOdvdmijHGIFTWFPBC7075-06-60 07:51:00 Test Item Value Reference Range Interpretation Comments Hgb (test code = Hgb) 13.5 12.0-16.0 [facility] CampusEhuycyjRPYBOMXROX7549-47-19 07:51:00 Test Item Value Reference Range Interpretation Comments MCV (test code = MCV) 89.7 80.0-98.0 [facility] CampusMtvspctYQVQLBWRYL0507-64-33 07:51:00 Test Item Value Reference Range Interpretation Comments Hct (test code = Hct) 39.9 36.0-48.0 [facility] CampusLfpcvofCYYNUQHVHR5383-38-77 07:51:00 Test Item Value Reference Range Interpretation Comments Eosinophils # (test code 0.3 See_Comment [A utomated message] The = Eosinophils #) system whic h generated this result tra nsmitted reference range : <=0.5. The reference r ozzy was not used to int erpret this result as normal/abnormal . [facility] CampusTlajphuCCXBJUKNEF1500-22-78 07:51:00 Test Item Value Reference Range Interpretation Comments Lymphocytes # (test code = Lymphocytes 3.6 1.0-5.5 #) [facility] CampusAewjrbvVVGDBIGVFN6376-20-07 07:51:00 Test Item Value Reference Range Interpretation Comments Monocytes # (test code 0.7 See_Comment [Aut omated message] The = Monocytes #) system which generated this result tra nsmitted reference range : <=0.8. The reference r ozzy was not used to int erpret this result as normal/abnormal . [facility] CampusUogvhpbGNSEWAOIWC6300-97-15 07:51:00 Test Item Value Reference Range Interpretation Comments Segs (test code = Segs) 63.9 45.0-75.0 [facility] CampusJaquctmKFOIINUNVW7725-93-89 07:51:00 Test Item Value Reference Range Interpretation Comments Segs-Bands # (test code = Segs-Bands #) 8.2 1.5-8.1 [facility] CampusBjkpgkpTEKGLWMCDK2616-63-63 07:51:00 Test Item Value Reference Range Interpretation Comments Basophils (test code = 0.7 See_Comment [Aut omated message] The Basophils) system which ge nerated this result tra nsmitted reference range : <=1.0. The reference r ozzy was not used to int erpret this result as normal/abnormal . [facility] CampusJidjskaGIYADPYLPE6200-87-88 07:51:00 Test Item Value Reference Range Interpretation Comments Monocytes (test code = Monocytes) 5.4 2.0-12.0 [facility] CampusUtupylbIEWSEYIVCN9062-66-85 07:51:00 Test Item Value Reference Range Interpretation Comments Eosinophils (test code = 2.3 See_Comment [A utomated message] The Eosinophils) system which ge nerated this result tra nsmitted reference range : <=4.0. The reference r ozzy was not used to int erpret this result as normal/abnormal . [facility] CampusEntwuhvKAFRWINWZM9598-36-32 07:51:00 Test Item Value Reference Range Interpretation Comments Lymphocytes (test code = Lymphocytes) 27.7 20.0-40.0 [facility] CampusYlnwuhjSUHBCMAWPW7800-36-73 07:51:00 Test Item Value Reference Range Interpretation Comments Basophils # (test code 0.1 See_Comment [Aut omated message] The = Basophils #) system which generated this result tra nsmitted reference range : <=0.2. The reference r ozzy was not used to int erpret this result as normal/abnormal . [facility]2015-01-23 07:51:00 Test Item Value Reference Range Interpretation Comments UA Urobilinogen (test code = UA 1.0 0.1-1.0 Urobilinogen) [facility]2015-01-23 07:51:00 Test Item Value Reference Range Interpretation Comments UA Turbidity (test code Cloudy *ABN*(09/04/14 = UA Turbidity) 1:51 AM) [facility] AND [id number] 07:51:00 Test Item Value Reference Range Interpretation Comments UA Color (test code = Red *ABN*(09/04/14 1:51 UA Color) AM) [facility] AND [id number] 07:51:00 Test Item Value Reference Range Interpretation Comments UA Ketones (test code Negative *NA*(09/04/14 = UA Ketones) 1:51 AM) [facility] AND [id number] 07:51:00 Test Item Value Reference Range Interpretation Comments UA Glucose (test code Negative (09/04/14 1:51 = UA Glucose) AM) [facility] AND [id number] 07:51:00 Test Item Value Reference Range Interpretation Comments UA Protein (test code = Trace *ABN*(09/04/14 UA Protein) 1:51 AM) [facility] AND [id number] 07:51:00 Test Item Value Reference Range Interpretation Comments UA pH (test code = UA pH) 8.0 1 5.0-8.0 [facility] AND [id number] 07:51:00 Test Item Value Reference Range Interpretation Comments UA Spec Grav (test code = UA Spec 1.015 1 Grav) [facility] AND [id number] 07:51:00 Test Item Value Reference Range Interpretation Comments UA Bili (test code = Negative *NA*(09/04/14 UA Bili) 1:51 AM) [facility] AND [id number] 07:51:00 Test Item Value Reference Range Interpretation Comments UA Blood (test code = Large *ABN*(09/04/14 UA Blood) 1:51 AM) [facility] AND [id number] 07:51:00 Test Item Value Reference Range Interpretation Comments UA Leuk Est (test Negative (09/04/14 1:51 code = UA Leuk Est) AM) [facility] AND [id number] 07:51:00 Test Item Value Reference Range Interpretation Comments UA Nitrite (test code Negative (09/04/14 1:51 = UA Nitrite) AM) [facility] AND [id number] 07:51:00 Test Item Value Reference Range Interpretation Comments UA Amorph Joselin (test code = UA Few /HPF Amorph Joselin) [facility] AND [id number] 07:51:00 Test Item Value Reference Range Interpretation Comments UA RBC (test code 51-100 /HPF See_Comment [Automate d message] The = UA RBC) system which ge nerated this result tra nsmitted reference range : <=2. The reference r ozzy was not used to int erpret this result as normal/abnormal . [facility] AND [id number] 07:51:00 Test Item Value Reference Range Interpretation Comments UA WBC (test code = UA WBC) 6-10 /HPF [facility] AND [id number] 07:51:00 Test Item Value Reference Range Interpretation Comments UA Bacteria (test code = UA Few /HPF Bacteria) [facility] AND [id number] 07:51:00 Test Item Value Reference Range Interpretation Comments UA Sq Epi (test code = UA Sq Occasional /LPF Epi) [facility] [employer] [id number] 07:51:00 Test Item Value Reference Range Interpretation Comments ABO/Rh (test code = ABO/Rh) A POS [facility] [employer] [id number] 07:51:00 Test Item Value Reference Range Interpretation Comments Antibody Scrn (test Negative (09/04/14 1:51 code = Antibody Scrn) AM) [facility] [id number] 07:51:00 Test Item Value Reference Range Interpretation Comments Albumin Lvl (test code = Albumin Lvl) 3.4 3.5-5.0 [facility] [id number] 07:51:00 Test Item Value Reference Range Interpretation Comments Alk Phos (test code = Alk Phos) 64 39-136 [facility] [id number] 07:51:00 Test Item Value Reference Range Interpretation Comments ALT (test code = ALT) 18 See_Comment [Auto mated message] The system which ge nerated this result transmit gaye reference range : <=65. The reference range was not used to interpr et this result as satish l/abnormal. [facility] [id number] 07:51:00 Test Item Value Reference Range Interpretation Comments AST (test code = AST) 12 See_Comment [Auto mated message] The system which ge nerated this result transmit gaye reference range : <=37. The reference range was not used to interpr et this result as satish l/abnormal. [facility]2015-01-23 07:51:00 Test Item Value Reference Range Interpretation Comments eGFR (test code = eGFR) 93 [facility]2015-01-23 07:51:00 Test Item Value Reference Range Interpretation Comments Bili Total (test code = Bili Total) 0.3 0.2-1.3 [place] [id number] 07:51:00 Test Item Value Reference Range Interpretation Comments Chloride Lvl (test code = Chloride Lvl) 108 95-109 [facility]2015-01-23 07:51:00 Test Item Value Reference Range Interpretation Comments Sodium Lvl (test code = Sodium Lvl) 138 135-145 [facility]2015-01-23 07:51:00 Test Item Value Reference Range Interpretation Comments Potassium Lvl (test code = Potassium 3.9 3.5-5.1 Lvl) [facility]2015-01-23 07:51:00 Test Item Value Reference Range Interpretation Comments CO2 (test code = CO2) 22 24-32 [facility]2015-01-23 07:51:00 Test Item Value Reference Range Interpretation Comments Calcium Lvl (test code = Calcium Lvl) 8.8 8.5-10.5 [facility]2015-01-23 07:51:00 Test Item Value Reference Range Interpretation Comments Glucose Lvl (test code = Glucose Lvl) 98 70-99 [facility]2015-01-23 07:51:00 Test Item Value Reference Range Interpretation Comments Total Protein (test code = Total 7.3 6.4-8.4 Protein) [facility]2015-01-23 07:51:00 Test Item Value Reference Range Interpretation Comments BUN (test code = BUN) 12 7-22 [facility]2015-01-23 07:51:00 Test Item Value Reference Range Interpretation Comments Creatinine Lvl (test code = Creatinine 0.8 0.5-1.4 Lvl) [facility]2015-01-23 07:51:00 Test Item Value Reference Range Interpretation Comments AGAP (test code = AGAP) 11.9 10.0-20.0 [facility] [id number] 07:51:00 Test Item Value Reference Range Interpretation Comments B/C Ratio (test code = B/C Ratio) 15 6-25 [facility] [id number] 07:51:00 Test Item Value Reference Range Interpretation Comments Globulin (test code = Globulin) 3.9 2.0-4.0 [facility] [id number] 07:51:00 Test Item Value Reference Range Interpretation Comments A/G Ratio (test code = A/G Ratio) 0.9 0.7-1.6 [facility]rcwadpHXJRDXDNMSMMI1501-02-22 07:51:00 Test Item Value Reference Range Interpretation Comments hCG Tot (test code = hCG Tot) no gt [facility] CampusLwfrjlrXFSGHJJXLI3528-24-02 07:51:00 Test Item Value Reference Range Interpretation Comments MCHC (test code = MCHC) 33.8 32.0-36.0 [facility] CampusLombqggASUIWYNZFE5450-52-84 07:51:00 Test Item Value Reference Range Interpretation Comments MCH (test code = MCH) 30.3 pg 27.0-31.0 [facility] CampusNconnimCNWMZSIIAE2861-68-83 07:51:00 Test Item Value Reference Range Interpretation Comments RDW (test code = RDW) 13.0 11.5-14.5 [facility] CampusYnhdhqvQBOOUBNCHB3907-18-63 07:51:00 Test Item Value Reference Range Interpretation Comments MPV (test code = MPV) 8.4 7.4-10.4 [facility] CampusDcihfnnMOYIEMINGR2001-87-71 07:51:00 Test Item Value Reference Range Interpretation Comments Platelet (test code = Platelet) 356 133-450 [facility] CampusEfynvyqTWCXYSLZEU9736-25-09 07:51:00 Test Item Value Reference Range Interpretation Comments RBC (test code = RBC) 4.45 4.20-5.40 [facility] CampusIkornshMTEXYDUVNI4306-16-97 07:51:00 Test Item Value Reference Range Interpretation Comments WBC (test code = WBC) 12.9 3.7-10.4 [facility] CampusJbqizavJOJBBHEJDQ5420-29-79 07:51:00 Test Item Value Reference Range Interpretation Comments Hgb (test code = Hgb) 13.5 12.0-16.0 [facility] CampusMkdekimOCDINSCDPT7929-28-87 07:51:00 Test Item Value Reference Range Interpretation Comments MCV (test code = MCV) 89.7 80.0-98.0 [facility] CampusCyyqvnvARQEBFXKDO8346-32-22 07:51:00 Test Item Value Reference Range Interpretation Comments Hct (test code = Hct) 39.9 36.0-48.0 [facility] CampusLgkarbrVZFMPBGYAJ3992-06-58 07:51:00 Test Item Value Reference Range Interpretation Comments Eosinophils # (test code 0.3 See_Comment [A utomated message] The = Eosinophils #) system whic h generated this result tra nsmitted reference range : <=0.5. The reference r ozzy was not used to int erpret this result as normal/abnormal . [facility] CampusMnivhcqVWGCEIOAIP9818-95-05 07:51:00 Test Item Value Reference Range Interpretation Comments Lymphocytes # (test code = Lymphocytes 3.6 1.0-5.5 #) [facility] CampusFzxpvcwZCZIKLJJSY5189-00-01 07:51:00 Test Item Value Reference Range Interpretation Comments Monocytes # (test code 0.7 See_Comment [Aut omated message] The = Monocytes #) system which generated this result tra nsmitted reference range : <=0.8. The reference r ozzy was not used to int erpret this result as normal/abnormal . [facility] CampusPovdhhiCMFKHFYUQR4889-40-32 07:51:00 Test Item Value Reference Range Interpretation Comments Segs (test code = Segs) 63.9 45.0-75.0 [facility] CampusNfzptxjHIBEWAKFHG4477-63-17 07:51:00 Test Item Value Reference Range Interpretation Comments Segs-Bands # (test code = Segs-Bands #) 8.2 1.5-8.1 [facility] CampusEwuxeyqXCHPIDWVGZ1833-05-46 07:51:00 Test Item Value Reference Range Interpretation Comments Basophils (test code = 0.7 See_Comment [Aut omated message] The Basophils) system which ge nerated this result tra nsmitted reference range : <=1.0. The reference r ozzy was not used to int erpret this result as normal/abnormal . [facility] CampusBedctmrYZYRCADYUA9776-18-03 07:51:00 Test Item Value Reference Range Interpretation Comments Monocytes (test code = Monocytes) 5.4 2.0-12.0 [facility] CampusWdwcsjpCWRMQFPNBR8623-70-02 07:51:00 Test Item Value Reference Range Interpretation Comments Eosinophils (test code = 2.3 See_Comment [A utomated message] The Eosinophils) system which ge nerated this result tra nsmitted reference range : <=4.0. The reference r ozzy was not used to int erpret this result as normal/abnormal . [id number] 07:51:00 Test Item Value Reference Range Interpretation Comments Lymphocytes (test code = Lymphocytes) 27.7 20.0-40.0 [facility] [id number] 07:51:00 Test Item Value Reference Range Interpretation Comments Basophils # (test code 0.1 See_Comment [Aut omated message] The = Basophils #) system which generated this result tra nsmitted reference range : <=0.2. The reference r ozzy was not used to int erpret this result as normal/abnormal . [facility] AND [id number] 07:51:00 Test Item Value Reference Range Interpretation Comments UA Urobilinogen (test code = UA 1.0 0.1-1.0 Urobilinogen) [facility] AND [id number] 07:51:00 Test Item Value Reference Range Interpretation Comments UA Turbidity (test code Cloudy *ABN*(09/04/14 = UA Turbidity) 1:51 AM) [facility] AND [id number] 07:51:00 Test Item Value Reference Range Interpretation Comments UA Color (test code = Red *ABN*(09/04/14 1:51 UA Color) AM) [facility] AND [id number] 07:51:00 Test Item Value Reference Range Interpretation Comments UA Ketones (test code Negative *NA*(09/04/14 = UA Ketones) 1:51 AM) [facility] AND [id number] 07:51:00 Test Item Value Reference Range Interpretation Comments UA Glucose (test code Negative (09/04/14 1:51 = UA Glucose) AM) [facility] AND [id number] 07:51:00 Test Item Value Reference Range Interpretation Comments UA Protein (test code = Trace *ABN*(09/04/14 UA Protein) 1:51 AM) [facility] AND [id number] 07:51:00 Test Item Value Reference Range Interpretation Comments UA pH (test code = UA pH) 8.0 1 5.0-8.0 [facility] AND [id number] 07:51:00 Test Item Value Reference Range Interpretation Comments UA Spec Grav (test code = UA Spec 1.015 1 Grav) [facility] AND [id number] 07:51:00 Test Item Value Reference Range Interpretation Comments UA Bili (test code = Negative *NA*(09/04/14 UA Bili) 1:51 AM) [facility] AND [id number] 07:51:00 Test Item Value Reference Range Interpretation Comments UA Blood (test code = Large *ABN*(09/04/14 UA Blood) 1:51 AM) [facility] AND [id number] 07:51:00 Test Item Value Reference Range Interpretation Comments UA Leuk Est (test Negative (09/04/14 1:51 code = UA Leuk Est) AM) [facility] AND [id number] 07:51:00 Test Item Value Reference Range Interpretation Comments UA Nitrite (test code Negative (09/04/14 1:51 = UA Nitrite) AM) [facility] AND [id number] 07:51:00 Test Item Value Reference Range Interpretation Comments UA Amorph Joselin (test code = UA Few /HPF Amorph Joselin) [facility] AND [id number] 07:51:00 Test Item Value Reference Range Interpretation Comments UA RBC (test code 51-100 /HPF See_Comment [Automate d message] The = UA RBC) system which ge nerated this result tra nsmitted reference range : <=2. The reference r ozzy was not used to int erpret this result as normal/abnormal . [facility] AND [id number] 07:51:00 Test Item Value Reference Range Interpretation Comments UA WBC (test code = UA WBC) 6-10 /HPF [facility] AND [id number] 07:51:00 Test Item Value Reference Range Interpretation Comments UA Bacteria (test code = UA Few /HPF Bacteria) [facility] AND [id number] 07:51:00 Test Item Value Reference Range Interpretation Comments UA Sq Epi (test code = UA Sq Occasional /LPF Epi) [facility] [id number] 07:51:00 Test Item Value Reference Range Interpretation Comments ABO/Rh (test code = ABO/Rh) [facility] [id number] 07:51:00 Test Item Value Reference Range Interpretation Comments Antibody Scrn (test Negative (09/04/14 1:51 code = Antibody Scrn) AM) [facility] [id number] 07:51:[facility] Test Item Value Reference Range Interpretation Comments Albumin Lvl (test code = Albumin Lvl) 3.4 3.5-5.0 [facility] [id number] 07:51:00 Test Item Value Reference Range Interpretation Comments Alk Phos (test code = Alk Phos) 64 39-136 [facility] [id number] 07:51:00 Test Item Value Reference Range Interpretation Comments ALT (test code = ALT) 18 See_Comment [Auto mated message] The system which ge nerated this result transmit gaye reference range : <=65. The reference range was not used to interpr et this result as satish l/abnormal. [facility] [id number] 07:51:00 Test Item Value Reference Range Interpretation Comments AST (test code = AST) 12 See_Comment [Auto mated message] The system which ge nerated this result transmit gaye reference range : <=37. The reference range was not used to interpr et this result as satish l/abnormal. [facility] [id number] 07:51:00 Test Item Value Reference Range Interpretation Comments eGFR (test code = eGFR) 93 [facility] [id number] 07:51:00 Test Item Value Reference Range Interpretation Comments Bili Total (test code = Bili Total) 0.3 0.2-1.3 [facility] [id number] 07:51:00 Test Item Value Reference Range Interpretation Comments Chloride Lvl (test code = Chloride Lvl) 108 95-109 [facility] [id number] 07:51:00 Test Item Value Reference Range Interpretation Comments Sodium Lvl (test code = Sodium Lvl) 138 135-145 [facility] [id number] 07:51:00 Test Item Value Reference Range Interpretation Comments Potassium Lvl (test code = Potassium 3.9 3.5-5.1 Lvl) [facility]2015-01-23 07:51:00 Test Item Value Reference Range Interpretation Comments CO2 (test code = CO2) - [facility]2015-01-23 07:51:00 Test Item Value Reference Range Interpretation Comments Calcium Lvl (test code = Calcium Lvl) 8.8 8.5-10.5 [facility]2015-01-23 07:51:00 Test Item Value Reference Range Interpretation Comments Glucose Lvl (test code = Glucose Lvl) 98 70-99 [facility]2015-01-23 07:51:00 Test Item Value Reference Range Interpretation Comments Total Protein (test code = Total 7.3 6.4-8.4 Protein) [facility]2015-01-23 07:51:00 Test Item Value Reference Range Interpretation Comments BUN (test code = BUN) 03-03 [facility]2015-01-23 07:51:00 Test Item Value Reference Range Interpretation Comments Creatinine Lvl (test code = Creatinine 0.8 0.5-1.4 Lvl) [facility]2015-01-23 07:51:00 Test Item Value Reference Range Interpretation Comments AGAP (test code = AGAP) 11.9 10.0-20.0 [facility]2015-01-23 07:51:00 Test Item Value Reference Range Interpretation Comments B/C Ratio (test code = B/C Ratio) 15 - [facility] AND [id number] 19:24:00 Test Item Value Reference Range Interpretation Comments UA Blood (test code = Negative (08/24/14 1:24 UA Blood) PM) [facility] AND [id number] 19:24:00 Test Item Value Reference Range Interpretation Comments UA Bili (test code = Negative *NA*(08/24/14 UA Bili) 1:24 PM) [facility] AND [id number] 19:24:00 Test Item Value Reference Range Interpretation Comments UA Color (test code = Yellow *NA*(08/24/14 UA Color) 1:24 PM) [facility] AND [id number] 19:24:00 Test Item Value Reference Range Interpretation Comments UA Glucose (test code Negative (08/24/14 1:24 = UA Glucose) PM) [facility] AND [id number] 19:24:00 Test Item Value Reference Range Interpretation Comments UA Protein (test code Negative (08/24/14 1:24 = UA Protein) PM) [facility] AND [id number] 19:24:00 Test Item Value Reference Range Interpretation Comments UA pH (test code = UA pH) 6.0 1 5.0-8.0 [facility] AND [id number] 19:24:00 Test Item Value Reference Range Interpretation Comments UA Spec Grav (test code *NA*(08/24/14 1:24 PM) = UA Spec Grav) [facility] AND [id number] 19:24:00 Test Item Value Reference Range Interpretation Comments UA Turbidity (test code = Clear (08/24/14 1:24 UA Turbidity) PM) [facility]2015-01-12 19:24:00 Test Item Value Reference Range Interpretation Comments Lipase Lvl (test code = Lipase Lvl) 104 73-393 [facility]2015-01-12 19:24:00 Test Item Value Reference Range Interpretation Comments eGFR (test code = eGFR) 109 [facility]2015-01-12 19:24:00 Test Item Value Reference Range Interpretation Comments Bili Total (test code = Bili Total) 0.6 0.2-1.3 [facility]2015-01-12 19:24:00 Test Item Value Reference Range Interpretation Comments Alk Phos (test code = Alk Phos) 72 39-136 [facility]2015-01-12 19:24:00 Test Item Value Reference Range Interpretation Comments Calcium Lvl (test code = Calcium Lvl) 8.8 8.5-10.5 [facility]2015-01-12 19:24:00 Test Item Value Reference Range Interpretation Comments CO2 (test code = CO2) 28 24-32 [facility]2015-01-12 19:24:00 Test Item Value Reference Range Interpretation Comments Chloride Lvl (test code = Chloride Lvl) 107 95-109 [facility]2015-01-12 19:24:00 Test Item Value Reference Range Interpretation Comments Potassium Lvl (test code = Potassium 3.9 3.5-5.1 Lvl) [facility]2015-01-12 19:24:00 Test Item Value Reference Range Interpretation Comments Glucose Lvl (test code = Glucose Lvl) 90 70-99 [facility]2015-01-12 19:24:00 Test Item Value Reference Range Interpretation Comments Sodium Lvl (test code = Sodium Lvl) 138 135-145 [facility]2015-01-12 19:24:00 Test Item Value Reference Range Interpretation Comments BUN (test code = BUN) 7 7-22 [place] [id number] 19:24:00 Test Item Value Reference Range Interpretation Comments Creatinine Lvl (test code = Creatinine 0.7 0.5-1.4 Lvl) [facility]2015-01-12 19:24:00 Test Item Value Reference Range Interpretation Comments ALT (test code = ALT) 23 See_Comment [Auto mated message] The system which ge nerated this result transmit gaye reference range : <=65. The reference range was not used to interpr et this result as satish l/abnormal. [facility]2015-01-12 19:24:00 Test Item Value Reference Range Interpretation Comments AST (test code = AST) 12 See_Comment [Auto mated message] The system which ge nerated this result transmit gaye reference range : <=37. The reference range was not used to interpr et this result as satish l/abnormal. [place] [id number] 19:24:00 Test Item Value Reference Range Interpretation Comments Albumin Lvl (test code = Albumin Lvl) 3.8 3.5-5.0 [facility]2015-01-12 19:24:00 Test Item Value Reference Range Interpretation Comments Total Protein (test code = Total 8.0 6.4-8.4 Protein) [place] 035515-01-12 19:24:00 Test Item Value Reference Range Interpretation Comments A/G Ratio (test code = A/G Ratio) 0.9 0.7-1.6 [place] [id number] 19:24:00 Test Item Value Reference Range Interpretation Comments AGAP (test code = AGAP) 6.9 10.0-20.0 [place] 035515-01-12 19:24:00 Test Item Value Reference Range Interpretation Comments B/C Ratio (test code = B/C Ratio) 10 6-25 [facility] [id number] 19:24:00 Test Item Value Reference Range Interpretation Comments Globulin (test code = Globulin) 4.2 2.0-4.0 [id number] 19:24:00 Test Item Value Reference Range Interpretation Comments S Preg (test code = S Negative *NA*(08/24/14 Preg) 1:24 PM) [facility] CampusUkmafcyYJOTUGWREU2701-13-94 19:24:00 Test Item Value Reference Range Interpretation Comments WBC (test code = WBC) 11.3 3.7-10.4 [facility] [id number] 19:24:00 Test Item Value Reference Range Interpretation Comments RBC (test code = RBC) 4.75 4.20-5.40 [facility] CampusNnvczeiLAZJRAZADY5002-27-26 19:24:00 Test Item Value Reference Range Interpretation Comments Platelet (test code = Platelet) 402 133-450 [facility] CampusJvnkmqkKXICGJXOEZ0148-53-17 19:24:00 Test Item Value Reference Range Interpretation Comments MCV (test code = MCV) 89.9 80.0-98.0 [facility] CampusGlxbdraZWDMDBGHXJ8724-29-38 19:24:00 Test Item Value Reference Range Interpretation Comments Hct (test code = Hct) 42.7 36.0-48.0 [facility] CampusXqyyumhQQYSBJHHPP3789-09-20 19:24:00 Test Item Value Reference Range Interpretation Comments Hgb (test code = Hgb) 14.5 12.0-16.0 [facility] CampusNgusiioYKXQBRIVCU7481-48-51 19:24:00 Test Item Value Reference Range Interpretation Comments RDW (test code = RDW) 13.5 11.5-14.5 [facility] CampusPdmyrjbCTJFHWQNYS8425-12-20 19:24:00 Test Item Value Reference Range Interpretation Comments MCHC (test code = MCHC) 34.0 32.0-36.0 [facility] CampusWsdvrxkXYYAPBZLDT2728-93-90 19:24:00 Test Item Value Reference Range Interpretation Comments MCH (test code = MCH) 30.6 pg 27.0-31.0 [facility] [id number] 19:24:00 Test Item Value Reference Range Interpretation Comments MPV (test code = MPV) 8.1 7.4-10.4 [facility] CampusXtzficwFUWQRXQVSV8557-29-90 19:24:00 Test Item Value Reference Range Interpretation Comments Stomatocyte (test code = Stomatocyte) Slight [facility] CampusQuadcedWMLIBXQIFW7641-06-72 19:24:00 Test Item Value Reference Range Interpretation Comments Basophils # (test code 0.1 See_Comment [Aut omated message] The = Basophils #) system which generated this result tra nsmitted reference range : <=0.2. The reference r ozzy was not used to int erpret this result as normal/abnormal . [facility] CampusVoyzjczPHVQVTECBT2214-37-01 19:24:00 Test Item Value Reference Range Interpretation Comments Eosinophils # (test code 0.2 See_Comment [A utomated message] The = Eosinophils #) system whic h generated this result tra nsmitted reference range : <=0.5. The reference r ozzy was not used to int erpret this result as normal/abnormal . [facility] CampusAdmrvbmMPMYKUAQGP6614-42-61 19:24:00 Test Item Value Reference Range Interpretation Comments Hypochrom (test code = 1+ (08/24/14 1:24 PM) Hypochrom) [facility] Camp[id number] 19:24:00 Test Item Value Reference Range Interpretation Comments Lymphocytes # (test code = Lymphocytes 2.8 1.0-5.5 #) [facility] CampusRanvrxeDAWLENKVMI3533-87-96 19:24:00 Test Item Value Reference Range Interpretation Comments Segs-Bands # (test code = Segs-Bands #) 8.1 1.5-8.1 [facility] CampusKazudesBRKNREDABJ6713-67-79 19:24:00 Test Item Value Reference Range Interpretation Comments Monocytes # (test code 0.2 See_Comment [Aut omated message] The = Monocytes #) system which generated this result tra nsmitted reference range : <=0.8. The reference r ozzy was not used to int erpret this result as normal/abnormal . [facility] CampusZcdknneZHPTSKULBS9706-21-92 19:24:00 Test Item Value Reference Range Interpretation Comments Lymphocytes (test code = Lymphocytes) 24.5 20.0-40.0 [facility] CampusDgzgmhdNUFRAUOIXO5976-43-71 19:24:00 Test Item Value Reference Range Interpretation Comments Segs (test code = Segs) 71.8 45.0-75.0 [facility] CampusRelqptqZRFZUTJCLN5962-30-96 19:24:00 Test Item Value Reference Range Interpretation Comments Basophils (test code = 0.6 See_Comment [Aut omated message] The Basophils) system which ge nerated this result tra nsmitted reference range : <=1.0. The reference r ozzy was not used to int erpret this result as normal/abnormal . [facility] CampusTrgjfbrIEYNKHQLPW8214-02-59 19:24:00 Test Item Value Reference Range Interpretation Comments Monocytes (test code = Monocytes) 1.5 2.0-12.0 [facility] CampusDmkmgtsYBKHEELMMJ5827-06-47 19:24:00 Test Item Value Reference Range Interpretation Comments Eosinophils (test code = 1.6 See_Comment [A utomated message] The Eosinophils) system which ge nerated this result tra nsmitted reference range : <=4.0. The reference r ozzy was not used to int erpret this result as normal/abnormal . [facility] CampusDouakztPEUPCVQMPP8651-92-73 19:24:00 Test Item Value Reference Range Interpretation Comments Plt Morph (test code = Normal (08/24/14 1:24 Plt Morph) PM) [facility] AND [id number] 19:24:00 Test Item Value Reference Range Interpretation Comments UA Sq Epi (test code = UA Sq Occasional /LPF Epi) [facility] AND [id number] 19:24:00 Test Item Value Reference Range Interpretation Comments UA Bacteria (test code = UA Occasional /HPF Bacteria) [facility] AND [id number] 19:24:00 Test Item Value Reference Range Interpretation Comments UA Mucus (test code = None Seen (08/24/14 UA Mucus) 1:24 PM) [facility] AND [id number] 19:24:00 Test Item Value Reference Range Interpretation Comments UA WBC (test code = UA WBC) 0-2 /HPF [facility] AND [id number] 19:24:00 Test Item Value Reference Range Interpretation Comments UA RBC (test code = 0-2 /HPF See_Comment [Automa gaye message] The UA RBC) system which ge nerated this result tra nsmitted reference range : <=2. The reference range was not used to interpr et this result as satish l/abnormal. [facility] AND [id number] 19:24:00 Test Item Value Reference Range Interpretation Comments UA Leuk Est (test Moderate *ABN*(08/24/14 code = UA Leuk Est) 1:24 PM) [facility] AND [id number] 19:24:00 Test Item Value Reference Range Interpretation Comments UA Nitrite (test code Negative (08/24/14 1:24 = UA Nitrite) PM) [facility] AND [id number] 19:24:00 Test Item Value Reference Range Interpretation Comments UA Urobilinogen (test code = UA 0.2 0.1-1.0 Urobilinogen) [facility] AND [id number] 19:24:00 Test Item Value Reference Range Interpretation Comments UA Ketones (test code Negative *NA*(08/24/14 = UA Ketones) 1:24 PM) [facility] AND [id number] 19:24:00 Test Item Value Reference Range Interpretation Comments UA Blood (test code = Negative (08/24/14 1:24 UA Blood) PM) [facility] AND [id number] 19:24:00 Test Item Value Reference Range Interpretation Comments UA Bili (test code = Negative *NA*(08/24/14 UA Bili) 1:24 PM) [facility] AND [id number] 19:24:00 Test Item Value Reference Range Interpretation Comments UA Color (test code = Yellow *NA*(08/24/14 UA Color) 1:24 PM) [facility] AND [id number] 19:24:00 Test Item Value Reference Range Interpretation Comments UA Glucose (test code Negative (08/24/14 1:24 = UA Glucose) PM) [facility] AND [id number] 19:24:00 Test Item Value Reference Range Interpretation Comments UA Protein (test code Negative (08/24/14 1:24 = UA Protein) PM) [facility] AND [id number] 19:24:00 Test Item Value Reference Range Interpretation Comments UA pH (test code = UA pH) 6.0 1 5.0-8.0 [facility] AND [id number] 19:24:00 Test Item Value Reference Range Interpretation Comments UA Spec Grav (test code *NA*(08/24/14 1:24 PM) = UA Spec Grav) [facility] AND [id number] 19:24:00 Test Item Value Reference Range Interpretation Comments UA Turbidity (test code = Clear (08/24/14 1:24 UA Turbidity) PM) [facility]2015-01-12 19:24:00 Test Item Value Reference Range Interpretation Comments Lipase Lvl (test code = Lipase Lvl) 104 73-393 [facility]2015-01-12 19:24:00 Test Item Value Reference Range Interpretation Comments eGFR (test code = eGFR) 109 [facility]2015-01-12 19:24:00 Test Item Value Reference Range Interpretation Comments Bili Total (test code = Bili Total) 0.6 0.2-1.3 [facility]2015-01-12 19:24:00 Test Item Value Reference Range Interpretation Comments Alk Phos (test code = Alk Phos) 72 39-136 [facility]2015-01-12 19:24:00 Test Item Value Reference Range Interpretation Comments Calcium Lvl (test code = Calcium Lvl) 8.8 8.5-10.5 [facility]2015-01-12 19:24:00 Test Item Value Reference Range Interpretation Comments CO2 (test code = CO2) 28 24-32 [facility]2015-01-12 19:24:00 Test Item Value Reference Range Interpretation Comments Chloride Lvl (test code = Chloride Lvl) 107 95-109 [facility]2015-01-12 19:24:00 Test Item Value Reference Range Interpretation Comments Potassium Lvl (test code = Potassium 3.9 3.5-5.1 Lvl) [facility]2015-01-12 19:24:00 Test Item Value Reference Range Interpretation Comments Glucose Lvl (test code = Glucose Lvl) 90 70-99 [facility]2015-01-12 19:24:00 Test Item Value Reference Range Interpretation Comments Sodium Lvl (test code = Sodium Lvl) 138 135-145 [facility]2015-01-12 19:24:00 Test Item Value Reference Range Interpretation Comments BUN (test code = BUN) 7 7-22 [facility]2015-01-12 19:24:00 Test Item Value Reference Range Interpretation Comments Creatinine Lvl (test code = Creatinine 0.7 0.5-1.4 Lvl) [facility]2015-01-12 19:24:00 Test Item Value Reference Range Interpretation Comments ALT (test code = ALT) 23 See_Comment [Auto mated message] The system which ge nerated this result transmit gaye reference range : <=65. The reference range was not used to interpr et this result as satish l/abnormal. [facility]2015-01-12 19:24:00 Test Item Value Reference Range Interpretation Comments AST (test code = AST) 12 See_Comment [Auto mated message] The system which ge nerated this result transmit gaye reference range : <=37. The reference range was not used to interpr et this result as satish l/abnormal. [facility]2015-01-12 19:24:00 Test Item Value Reference Range Interpretation Comments Albumin Lvl (test code = Albumin Lvl) 3.8 3.5-5.0 [facility]2015-01-12 19:24:00 Test Item Value Reference Range Interpretation Comments Total Protein (test code = Total 8.0 6.4-8.4 Protein) [facility]2015-01-12 19:24:00 Test Item Value Reference Range Interpretation Comments A/G Ratio (test code = A/G Ratio) 0.9 0.7-1.6 [facility]2015-01-12 19:24:00 Test Item Value Reference Range Interpretation Comments AGAP (test code = AGAP) 6.9 10.0-20.0 [facility]2015-01-12 19:24:00 Test Item Value Reference Range Interpretation Comments B/C Ratio (test code = B/C Ratio) 10 6-25 [facility]2015-01-12 19:24:00 Test Item Value Reference Range Interpretation Comments Globulin (test code = Globulin) 4.2 2.0-4.0 [facility]BkspjdyCFPPLASNXHNMH2991-74-30 19:24:00 Test Item Value Reference Range Interpretation Comments S Preg (test code = S Negative *NA*(08/24/14 Preg) 1:24 PM) [facility]gb[facility]akOTVMLOLURF4605-75-04 19:24:00 Test Item Value Reference Range Interpretation Comments WBC (test code = WBC) 11.3 3.7-10.4 [facility] CampusWjcivsgDVSFWKFDMN9626-73-72 19:24:00 Test Item Value Reference Range Interpretation Comments RBC (test code = RBC) 4.75 4.20-5.40 [facility] CampusZtueufbWBFSNLISMN2557-32-12 19:24:00 Test Item Value Reference Range Interpretation Comments Platelet (test code = Platelet) 402 133-450 [facility] CampusIycvdxjETUCGUOQQX8392-19-14 19:24:00 Test Item Value Reference Range Interpretation Comments MCV (test code = MCV) 89.9 80.0-98.0 [facility] CampusEhaitnoCRTDFZWTOG1104-46-21 19:24:00 Test Item Value Reference Range Interpretation Comments Hct (test code = Hct) 42.7 36.0-48.0 [facility] CampusDcbupzuUFGYSZRGNT4711-06-50 19:24:00 Test Item Value Reference Range Interpretation Comments Hgb (test code = Hgb) 14.5 12.0-16.0 [facility] CampusSxdypinXFEICIXNRX3675-75-37 19:24:00 Test Item Value Reference Range Interpretation Comments RDW (test code = RDW) 13.5 11.5-14.5 [facility] CampusItkvhnhMLNTCMHJZG0911-55-38 19:24:00 Test Item Value Reference Range Interpretation Comments MCHC (test code = MCHC) 34.0 32.0-36.0 [facility] CampusJxasdmyNYGLLTQGTL8225-76-60 19:24:00 Test Item Value Reference Range Interpretation Comments MCH (test code = MCH) 30.6 pg 27.0-31.0 [facility] CampusIslgleaCUJEYKVDHE4557-47-13 19:24:00 Test Item Value Reference Range Interpretation Comments MPV (test code = MPV) 8.1 7.4-10.4 [facility] CampusXfmmipdFPGFLREWAM4858-35-35 19:24:00 Test Item Value Reference Range Interpretation Comments Stomatocyte (test code = Stomatocyte) Slight [facility] CampusTmonmxqJGQZGIAZCR6583-34-38 19:24:00 Test Item Value Reference Range Interpretation Comments Basophils # (test code 0.1 See_Comment [Aut omated message] The = Basophils #) system which generated this result tra nsmitted reference range : <=0.2. The reference r ozzy was not used to int erpret this result as normal/abnormal . [facility] CampusBjlajuaQRNEGJUOQJ2292-19-07 19:24:00 Test Item Value Reference Range Interpretation Comments Eosinophils # (test code 0.2 See_Comment [A utomated message] The = Eosinophils #) system whic h generated this result tra nsmitted reference range : <=0.5. The reference r ozzy was not used to int erpret this result as normal/abnormal . [facility] CampusRmtpfvxUIFCSSHDMC1034-15-99 19:24:00 Test Item Value Reference Range Interpretation Comments Hypochrom (test code = 1+ (08/24/14 1:24 PM) Hypochrom) [facility] CampusLedilnpHYDVZCEHUS0020-58-03 19:24:00 Test Item Value Reference Range Interpretation Comments Lymphocytes # (test code = Lymphocytes 2.8 1.0-5.5 #) [facility] CampusHhtpzuvKVXHNRCJEP2498-58-11 19:24:00 Test Item Value Reference Range Interpretation Comments Segs-Bands # (test code = Segs-Bands #) 8.1 1.5-8.1 [facility] CampusVorfwvcBXANQKOJRG0434-07-79 19:24:00 Test Item Value Reference Range Interpretation Comments Monocytes # (test code 0.2 See_Comment [Aut omated message] The = Monocytes #) system which generated this result tra nsmitted reference range : <=0.8. The reference r ozzy was not used to int erpret this result as normal/abnormal . [facility] CampusJosgqvnSHAILMQMIH6591-41-58 19:24:00 Test Item Value Reference Range Interpretation Comments Lymphocytes (test code = Lymphocytes) 24.5 20.0-40.0 [facility] CampusRwlmlprHSCZJXZLJP0091-00-82 19:24:00 Test Item Value Reference Range Interpretation Comments Segs (test code = Segs) 71.8 45.0-75.0 [facility] CampusKezrfewZFQYGUYKDQ2957-68-41 19:24:00 Test Item Value Reference Range Interpretation Comments Basophils (test code = 0.6 See_Comment [Aut omated message] The Basophils) system which ge nerated this result tra nsmitted reference range : <=1.0. The reference r ozzy was not used to int erpret this result as normal/abnormal . [facility] CampusEsfebhgUHXKWGRKWR0433-81-46 19:24:00 Test Item Value Reference Range Interpretation Comments Monocytes (test code = Monocytes) 1.5 2.0-12.0 [facility] CampusZfpoatbCTSCIYVWQB6243-14-00 19:24:00 Test Item Value Reference Range Interpretation Comments Eosinophils (test code = 1.6 See_Comment [A utomated message] The Eosinophils) system which ge nerated this result tra nsmitted reference range : <=4.0. The reference r ozzy was not used to int erpret this result as normal/abnormal . [facility] CampusItbzseqGNHWNXIOCG0677-14-75 19:24:00 Test Item Value Reference Range Interpretation Comments Plt Morph (test code = Normal (08/24/14 1:24 Plt Morph) PM) [facility] AND [id number] 19:24:00 Test Item Value Reference Range Interpretation Comments UA Sq Epi (test code = UA Sq Occasional /LPF Epi) [facility] AND [id number] 19:24:00 Test Item Value Reference Range Interpretation Comments UA Bacteria (test code = UA Occasional /HPF Bacteria) [facility] AND [id number] 19:24:00 Test Item Value Reference Range Interpretation Comments UA Mucus (test code = None Seen (08/24/14 UA Mucus) 1:24 PM) [facility] AND [id number] 19:24:00 Test Item Value Reference Range Interpretation Comments UA WBC (test code = UA WBC) 0-2 /HPF [facility] AND [id number] 19:24:00 Test Item Value Reference Range Interpretation Comments UA RBC (test code = 0-2 /HPF See_Comment [Automa gaye message] The UA RBC) system which ge nerated this result tra nsmitted reference range : <=2. The reference range was not used to interpr et this result as satish l/abnormal. [facility] AND [id number] 19:24:00 Test Item Value Reference Range Interpretation Comments UA Leuk Est (test Moderate *ABN*(08/24/14 code = UA Leuk Est) 1:24 PM) [facility] AND [id number] 19:24:00 Test Item Value Reference Range Interpretation Comments UA Nitrite (test code Negative (08/24/14 1:24 = UA Nitrite) PM) [facility] AND [id number] 19:24:00 Test Item Value Reference Range Interpretation Comments UA Urobilinogen (test code = UA 0.2 0.1-1.0 Urobilinogen) [facility] AND [id number] 19:24:00 Test Item Value Reference Range Interpretation Comments UA Ketones (test code Negative *NA*(08/24/14 = UA Ketones) 1:24 PM) [facility] [id number] 19:24:00 Test Item Value Reference Range Interpretation Comments UA Blood (test code = Negative (08/24/14 1:24 UA Blood) PM) [facility] AND [id number] 19:24:00 Test Item Value Reference Range Interpretation Comments UA Bili (test code = Negative *NA*(08/24/14 UA Bili) 1:24 PM) [facility] AND [id number] 19:24:00 Test Item Value Reference Range Interpretation Comments UA Color (test code = Yellow *NA*(08/24/14 UA Color) 1:24 PM) [facility] AND [id number] 19:24:00 Test Item Value Reference Range Interpretation Comments UA Glucose (test code Negative (08/24/14 1:24 = UA Glucose) PM) [facility] AND [id number] 19:24:00 Test Item Value Reference Range Interpretation Comments UA Protein (test code Negative (08/24/14 1:24 = UA Protein) PM) [facility] AND [id number] 19:24:00 Test Item Value Reference Range Interpretation Comments UA pH (test code = UA pH) 6.0 1 5.0-8.0 [facility] AND [id number] 19:24:00 Test Item Value Reference Range Interpretation Comments UA Spec Grav (test code *NA*(08/24/14 1:24 PM) = UA Spec Grav) [facility] AND [id number] 19:24:00 Test Item Value Reference Range Interpretation Comments UA Turbidity (test code = Clear (08/24/14 1:24 UA Turbidity) PM) [id number] 19:24:00 Test Item Value Reference Range Interpretation Comments Lipase Lvl (test code = Lipase Lvl) 104 73-393 [facility] [id number] 19:24:00 Test Item Value Reference Range Interpretation Comments eGFR (test code = eGFR) 109 [facility]2015-01-12 19:24:00 Test Item Value Reference Range Interpretation Comments Bili Total (test code = Bili Total) 0.6 0.2-1.3 [facility]2015-01-12 19:24:00 Test Item Value Reference Range Interpretation Comments Alk Phos (test code = Alk Phos) 72 39-136 [facility]2015-01-12 19:24:00 Test Item Value Reference Range Interpretation Comments Calcium Lvl (test code = Calcium Lvl) 8.8 8.5-10.5 [facility]2015-01-12 19:24:00 Test Item Value Reference Range Interpretation Comments CO2 (test code = CO2) 28 24-32 [facility]2015-01-12 19:24:00 Test Item Value Reference Range Interpretation Comments Chloride Lvl (test code = Chloride Lvl) 107 95-109 [facility]2015-01-12 19:24:00 Test Item Value Reference Range Interpretation Comments Potassium Lvl (test code = Potassium 3.9 3.5-5.1 Lvl) [facility]2015-01-12 19:24:00 Test Item Value Reference Range Interpretation Comments Glucose Lvl (test code = Glucose Lvl) 90 70-99 [facility]2015-01-12 19:24:00 Test Item Value Reference Range Interpretation Comments Sodium Lvl (test code = Sodium Lvl) 138 135-145 [facility]2015-01-12 19:24:00 Test Item Value Reference Range Interpretation Comments BUN (test code = BUN) 7 7-22 [facility]2015-01-12 19:24:00 Test Item Value Reference Range Interpretation Comments Creatinine Lvl (test code = Creatinine 0.7 0.5-1.4 Lvl) [facility]2015-01-12 19:24:00 Test Item Value Reference Range Interpretation Comments ALT (test code = ALT) 23 See_Comment [Auto mated message] The system which ge nerated this result transmit gaye reference range : <=65. The reference range was not used to interpr et this result as satish l/abnormal. [facility]2015-01-12 19:24:00 Test Item Value Reference Range Interpretation Comments AST (test code = AST) 12 See_Comment [Auto mated message] The system which ge nerated this result transmit gaye reference range : <=37. The reference range was not used to interpr et this result as satish l/abnormal. [place] [id number] 19:24:00 Test Item Value Reference Range Interpretation Comments Albumin Lvl (test code = Albumin Lvl) 3.8 3.5-5.0 [facility]2015-01-12 19:24:00 Test Item Value Reference Range Interpretation Comments Total Protein (test code = Total 8.0 6.4-8.4 Protein) [facility]2015-01-12 19:24:00 Test Item Value Reference Range Interpretation Comments A/G Ratio (test code = A/G Ratio) 0.9 0.7-1.6 [facility]2015-01-12 19:24:00 Test Item Value Reference Range Interpretation Comments AGAP (test code = AGAP) 6.9 10.0-20.0 [facility]2015-01-12 19:24:00 Test Item Value Reference Range Interpretation Comments B/C Ratio (test code = B/C Ratio) 10 6-25 [facility]2015-01-12 19:24:00 Test Item Value Reference Range Interpretation Comments Globulin (test code = Globulin) 4.2 2.0-4.0 [facility]MjpxkqiNWXWPEMOUYZWE6077-75-34 19:24:00 Test Item Value Reference Range Interpretation Comments S Preg (test code = S Negative *NA*(08/24/14 Preg) 1:24 PM) [facility] CampusQjxjrppTKVKTFDTRK3787-03-51 19:24:00 Test Item Value Reference Range Interpretation Comments WBC (test code = WBC) 11.3 3.7-10.4 [facility] CampusYkigmdiWENYQLEFSN5471-73-99 19:24:00 Test Item Value Reference Range Interpretation Comments RBC (test code = RBC) 4.75 4.20-5.40 [facility] CampusWzesyqhSJKSMVPHYZ8330-24-83 19:24:00 Test Item Value Reference Range Interpretation Comments Platelet (test code = Platelet) 402 133-450 [facility] CampusLcsxwttNWRLPFVJTQ9094-21-83 19:24:00 Test Item Value Reference Range Interpretation Comments MCV (test code = MCV) 89.9 80.0-98.0 [facility] CampusJqbfnapYQPIGKEZRR1628-94-42 19:24:00 Test Item Value Reference Range Interpretation Comments Hct (test code = Hct) 42.7 36.0-48.0 [facility] CampusJteixxrLASKBMAVPD1280-21-56 19:24:00 Test Item Value Reference Range Interpretation Comments Hgb (test code = Hgb) 14.5 12.0-16.0 [facility] CampusYpykfiqZENGQCVGOT9957-00-11 19:24:00 Test Item Value Reference Range Interpretation Comments RDW (test code = RDW) 13.5 11.5-14.5 [facility] CampusMbzwarrOHHRMRICKE8149-92-80 19:24:00 Test Item Value Reference Range Interpretation Comments MCHC (test code = MCHC) 34.0 32.0-36.0 [facility] CampusMsmcnswOEBHLMMMHF8927-04-32 19:24:00 Test Item Value Reference Range Interpretation Comments MCH (test code = MCH) 30.6 pg 27.0-31.0 [facility] CampusTpzocyuKEGZWKPTIO5692-03-03 19:24:00 Test Item Value Reference Range Interpretation Comments MPV (test code = MPV) 8.1 7.4-10.4 [facility] CampusHhalzqpDMCXUEHKXL8325-62-35 19:24:00 Test Item Value Reference Range Interpretation Comments Stomatocyte (test code = Stomatocyte) Slight [facility] CampusGaautdyGQYKGUTTVX7136-97-11 19:24:00 Test Item Value Reference Range Interpretation Comments Basophils # (test code 0.1 See_Comment [Aut omated message] The = Basophils #) system which generated this result tra nsmitted reference range : <=0.2. The reference r ozzy was not used to int erpret this result as normal/abnormal . [facility] CampusPctcmshDIVGRLHGUI1189-72-12 19:24:00 Test Item Value Reference Range Interpretation Comments Eosinophils # (test code 0.2 See_Comment [A utomated message] The = Eosinophils #) system whic h generated this result tra nsmitted reference range : <=0.5. The reference r ozzy was not used to int erpret this result as normal/abnormal . [facility] CampusRhuzmgkQSWLKOTLXT1310-62-50 19:24:00 Test Item Value Reference Range Interpretation Comments Hypochrom (test code = 1+ (08/24/14 1:24 PM) Hypochrom) [facility] CampusQqmjavmWUQRKDYDQS8927-39-05 19:24:00 Test Item Value Reference Range Interpretation Comments Lymphocytes # (test code = Lymphocytes 2.8 1.0-5.5 #) [facility] CampusGmuzjamZAJWDLHIMN8574-22-09 19:24:00 Test Item Value Reference Range Interpretation Comments Segs-Bands # (test code = Segs-Bands #) 8.1 1.5-8.1 [facility] CampusKnfunlvCFBCMPFKVB7523-90-38 19:24:00 Test Item Value Reference Range Interpretation Comments Monocytes # (test code 0.2 See_Comment [Aut omated message] The = Monocytes #) system which generated this result tra nsmitted reference range : <=0.8. The reference r ozzy was not used to int erpret this result as normal/abnormal . [facility] CampusFddgfifHLKLUGWKGU1041-66-77 19:24:00 Test Item Value Reference Range Interpretation Comments Lymphocytes (test code = Lymphocytes) 24.5 20.0-40.0 [facility] CampusTrxerswLXGEJKZIAR6779-73-76 19:24:00 Test Item Value Reference Range Interpretation Comments Segs (test code = Segs) 71.8 45.0-75.0 [facility] CampusWfljuneHRGNDGHACC0284-38-85 19:24:00 Test Item Value Reference Range Interpretation Comments Basophils (test code = 0.6 See_Comment [Aut omated message] The Basophils) system which ge nerated this result tra nsmitted reference range : <=1.0. The reference r ozzy was not used to int erpret this result as normal/abnormal . [facility] CampusDbjqdwsONQUXQZPIM5288-46-01 19:24:00 Test Item Value Reference Range Interpretation Comments Monocytes (test code = Monocytes) 1.5 2.0-12.0 [facility] CampusZqxuxwpSUUFGXXDRK5994-53-27 19:24:00 Test Item Value Reference Range Interpretation Comments Eosinophils (test code = 1.6 See_Comment [A utomated message] The Eosinophils) system which ge nerated this result tra nsmitted reference range : <=4.0. The reference r ozzy was not used to int erpret this result as normal/abnormal . [facility] CampusXyiidujBWXGXSOSHH1392-69-28 19:24:00 Test Item Value Reference Range Interpretation Comments Plt Morph (test code = Normal (08/24/14 1:24 Plt Morph) PM) [facility] AND [id number] 19:24:00 Test Item Value Reference Range Interpretation Comments UA Sq Epi (test code = UA Sq Occasional /LPF Epi) [facility] AND [id number] 19:24:00 Test Item Value Reference Range Interpretation Comments UA Bacteria (test code = UA Occasional /HPF Bacteria) [facility] AND [id number] 19:24:00 Test Item Value Reference Range Interpretation Comments UA Mucus (test code = None Seen (08/24/14 UA Mucus) 1:24 PM) [facility] AND [id number] 19:24:00 Test Item Value Reference Range Interpretation Comments UA WBC (test code = UA WBC) 0-2 /HPF [facility] AND [id number] 19:24:00 Test Item Value Reference Range Interpretation Comments UA RBC (test code = 0-2 /HPF See_Comment [Automa gaye message] The UA RBC) system which ge nerated this result tra nsmitted reference range : <=2. The reference range was not used to interpr et this result as satish l/abnormal. [facility] AND [id number] 19:24:00 Test Item Value Reference Range Interpretation Comments UA Leuk Est (test Moderate *ABN*(08/24/14 code = UA Leuk Est) 1:24 PM) [facility] AND [id number] 19:24:00 Test Item Value Reference Range Interpretation Comments UA Nitrite (test code Negative (08/24/14 1:24 = UA Nitrite) PM) [facility] AND [id number] 19:24:00 Test Item Value Reference Range Interpretation Comments UA Urobilinogen (test code = UA 0.2 0.1-1.0 Urobilinogen) [facility] AND [id number] 19:24:00 Test Item Value Reference Range Interpretation Comments UA Ketones (test code Negative *NA*(08/24/14 = UA Ketones) 1:24 PM) [facility] AND [id number] 19:24:00 Test Item Value Reference Range Interpretation Comments UA Blood (test code = Negative (08/24/14 1:24 UA Blood) PM) [facility] AND [id number] 19:24:00 Test Item Value Reference Range Interpretation Comments UA Bili (test code = Negative *NA*(08/24/14 UA Bili) 1:24 PM) [facility] AND [id number] 19:24:00 Test Item Value Reference Range Interpretation Comments UA Color (test code = Yellow *NA*(08/24/14 UA Color) 1:24 PM) [facility] AND [id number] 19:24:00 Test Item Value Reference Range Interpretation Comments UA Glucose (test code Negative (08/24/14 1:24 = UA Glucose) PM) [facility] AND [id number] 19:24:00 Test Item Value Reference Range Interpretation Comments UA Protein (test code Negative (08/24/14 1:24 = UA Protein) PM) [facility] AND [id number] 19:24:00 Test Item Value Reference Range Interpretation Comments UA pH (test code = UA pH) 6.0 1 5.0-8.0 [facility] AND [id number] 19:24:00 Test Item Value Reference Range Interpretation Comments UA Spec Grav (test code *NA*(08/24/14 1:24 PM) = UA Spec Grav) [facility] AND [id number] 19:24:00 Test Item Value Reference Range Interpretation Comments UA Turbidity (test code = Clear (08/24/14 1:24 UA Turbidity) PM) [facility]2015-01-12 19:24:00 Test Item Value Reference Range Interpretation Comments Lipase Lvl (test code = Lipase Lvl) 104 73-393 [facility]2015-01-12 19:24:00 Test Item Value Reference Range Interpretation Comments eGFR (test code = eGFR) 109 [facility]2015-01-12 19:24:00 Test Item Value Reference Range Interpretation Comments Bili Total (test code = Bili Total) 0.6 0.2-1.3 [facility]2015-01-12 19:24:00 Test Item Value Reference Range Interpretation Comments Alk Phos (test code = Alk Phos) 72 39-136 [facility]2015-01-12 19:24:00 Test Item Value Reference Range Interpretation Comments Calcium Lvl (test code = Calcium Lvl) 8.8 8.5-10.5 [facility]2015-01-12 19:24:00 Test Item Value Reference Range Interpretation Comments CO2 (test code = CO2) 28 24-32 [place] 035515-01-12 19:24:00 Test Item Value Reference Range Interpretation Comments Chloride Lvl (test code = Chloride Lvl) 107 95-109 [facility]2015-01-12 19:24:00 Test Item Value Reference Range Interpretation Comments Potassium Lvl (test code = Potassium 3.9 3.5-5.1 Lvl) [facility]2015-01-12 19:24:00 Test Item Value Reference Range Interpretation Comments Glucose Lvl (test code = Glucose Lvl) 90 70-99 [facility]2015-01-12 19:24:00 Test Item Value Reference Range Interpretation Comments Sodium Lvl (test code = Sodium Lvl) 138 135-145 [facility]2015-01-12 19:24:00 Test Item Value Reference Range Interpretation Comments BUN (test code = BUN) 7 7-22 [facility]2015-01-12 19:24:00 Test Item Value Reference Range Interpretation Comments Creatinine Lvl (test code = Creatinine 0.7 0.5-1.4 Lvl) [facility]2015-01-12 19:24:00 Test Item Value Reference Range Interpretation Comments ALT (test code = ALT) 23 See_Comment [Auto mated message] The system which ge nerated this result transmit gaye reference range : <=65. The reference range was not used to interpr et this result as satish l/abnormal. [facility]2015-01-12 19:24:00 Test Item Value Reference Range Interpretation Comments AST (test code = AST) 12 See_Comment [Auto mated message] The system which ge nerated this result transmit gaye reference range : <=37. The reference range was not used to interpr et this result as satish l/abnormal. [place] 035515-01-12 19:24:00 Test Item Value Reference Range Interpretation Comments Albumin Lvl (test code = Albumin Lvl) 3.8 3.5-5.0 [facility]2015-01-12 19:24:00 Test Item Value Reference Range Interpretation Comments Total Protein (test code = Total 8.0 6.4-8.4 Protein) [facility]2015-01-12 19:24:00 Test Item Value Reference Range Interpretation Comments A/G Ratio (test code = A/G Ratio) 0.9 0.7-1.6 [facility]2015-01-12 19:24:00 Test Item Value Reference Range Interpretation Comments AGAP (test code = AGAP) 6.9 10.0-20.0 [facility]2015-01-12 19:24:00 Test Item Value Reference Range Interpretation Comments B/C Ratio (test code = B/C Ratio) 10 6-25 [facility]2015-01-12 19:24:00 Test Item Value Reference Range Interpretation Comments Globulin (test code = Globulin) 4.2 2.0-4.0 [facility]AmelsyaIXJBWVSRMJHFF9052-96-25 19:24:00 Test Item Value Reference Range Interpretation Comments S Preg (test code = S Negative *NA*(08/24/14 Preg) 1:24 PM) [facility] CampusGcnujalGQBNEJZHUV5703-97-30 19:24:00 Test Item Value Reference Range Interpretation Comments WBC (test code = WBC) 11.3 3.7-10.4 [facility] CampusKghtyzcKYQHKTQQXX5692-22-97 19:24:00 Test Item Value Reference Range Interpretation Comments RBC (test code = RBC) 4.75 4.20-5.40 [facility] CampusDucbjpwKFKVPKIGST1751-13-66 19:24:00 Test Item Value Reference Range Interpretation Comments Platelet (test code = Platelet) 402 133-450 [facility] CampusJvahsqjRELZCJFUJB2297-47-15 19:24:00 Test Item Value Reference Range Interpretation Comments MCV (test code = MCV) 89.9 80.0-98.0 [facility] CampusGwxassxDGSPQUOAAI9059-33-64 19:24:00 Test Item Value Reference Range Interpretation Comments Hct (test code = Hct) 42.7 36.0-48.0 [facility] CampusPtmpwahLJAQEXWRAV6113-99-71 19:24:00 Test Item Value Reference Range Interpretation Comments Hgb (test code = Hgb) 14.5 12.0-16.0 [facility] CampusYiynnlcSAULZKBMMJ7518-64-83 19:24:00 Test Item Value Reference Range Interpretation Comments RDW (test code = RDW) 13.5 11.5-14.5 [facility] CampusTpgbbgjUFPNCXZUZI6280-53-97 19:24:00 Test Item Value Reference Range Interpretation Comments MCHC (test code = MCHC) 34.0 32.0-36.0 [facility] CampusMtafaqvCUMTQZZOBS9091-91-88 19:24:00 Test Item Value Reference Range Interpretation Comments MCH (test code = MCH) 30.6 pg 27.0-31.0 [facility] CampusCswyzflUBEDXYTXIK3637-86-98 19:24:00 Test Item Value Reference Range Interpretation Comments MPV (test code = MPV) 8.1 7.4-10.4 [facility] CampusCdxtjjbTCLKNYPJRF1865-70-03 19:24:00 Test Item Value Reference Range Interpretation Comments Stomatocyte (test code = Stomatocyte) Slight [facility] CampusPxcnetbMLPVHCAXWO9778-49-36 19:24:00 Test Item Value Reference Range Interpretation Comments Basophils # (test code 0.1 See_Comment [Aut omated message] The = Basophils #) system which generated this result tra nsmitted reference range : <=0.2. The reference r ozzy was not used to int erpret this result as normal/abnormal . [facility] CampusLgeqnxfEBEWHFKZMH0302-81-85 19:24:00 Test Item Value Reference Range Interpretation Comments Eosinophils # (test code 0.2 See_Comment [A utomated message] The = Eosinophils #) system whic h generated this result tra nsmitted reference range : <=0.5. The reference r ozzy was not used to int erpret this result as normal/abnormal . [facility] CampusVzzsoxjVSNJNDMGQE6852-24-12 19:24:00 Test Item Value Reference Range Interpretation Comments Hypochrom (test code = 1+ (08/24/14 1:24 PM) Hypochrom) [facility] CampusFszerbxYUJCHJZUUF3449-71-81 19:24:00 Test Item Value Reference Range Interpretation Comments Lymphocytes # (test code = Lymphocytes 2.8 1.0-5.5 #) [facility] CampusSfhyaaySJPYXMTTDQ1772-69-39 19:24:00 Test Item Value Reference Range Interpretation Comments Segs-Bands # (test code = Segs-Bands #) 8.1 1.5-8.1 [facility] CampusXqcvijjORKTSUVIDE4425-01-49 19:24:00 Test Item Value Reference Range Interpretation Comments Monocytes # (test code 0.2 See_Comment [Aut omated message] The = Monocytes #) system which generated this result tra nsmitted reference range : <=0.8. The reference r ozzy was not used to int erpret this result as normal/abnormal . [facility] CampusTxwlsgiUGSHKLHUPR4916-07-11 19:24:00 Test Item Value Reference Range Interpretation Comments Lymphocytes (test code = Lymphocytes) 24.5 20.0-40.0 [facility] CampusHeeziuyEXUFHLICUI8802-51-50 19:24:00 Test Item Value Reference Range Interpretation Comments Segs (test code = Segs) 71.8 45.0-75.0 [facility] CampusMqvthidKXQTMFOXGO5570-92-39 19:24:00 Test Item Value Reference Range Interpretation Comments Basophils (test code = 0.6 See_Comment [Aut omated message] The Basophils) system which ge nerated this result tra nsmitted reference range : <=1.0. The reference r ozzy was not used to int erpret this result as normal/abnormal . [facility] CampusOewndbyZHSOSSNCON7810-58-53 19:24:00 Test Item Value Reference Range Interpretation Comments Monocytes (test code = Monocytes) 1.5 2.0-12.0 [facility] CampusMaaeapdKCZNZAJKZV8609-85-38 19:24:00 Test Item Value Reference Range Interpretation Comments Eosinophils (test code = 1.6 See_Comment [A utomated message] The Eosinophils) system which ge nerated this result tra nsmitted reference range : <=4.0. The reference r ozzy was not used to int erpret this result as normal/abnormal . [facility] CampusThpzuxlOUGUTFZLPQ5037-93-11 19:24:00 Test Item Value Reference Range Interpretation Comments Plt Morph (test code = Normal (08/24/14 1:24 Plt Morph) PM) [facility] AND [id number] 19:24:00 Test Item Value Reference Range Interpretation Comments UA Sq Epi (test code = UA Sq Occasional /LPF Epi) [facility] AND [id number] 19:24:00 Test Item Value Reference Range Interpretation Comments UA Bacteria (test code = UA Occasional /HPF Bacteria) [facility] AND [id number] 19:24:00 Test Item Value Reference Range Interpretation Comments UA Mucus (test code = None Seen (08/24/14 UA Mucus) 1:24 PM) [facility] AND [id number] 19:24:00 Test Item Value Reference Range Interpretation Comments UA WBC (test code = UA WBC) 0-2 /HPF [facility] AND [id number] 19:24:00 Test Item Value Reference Range Interpretation Comments UA RBC (test code = 0-2 /HPF See_Comment [Automa gaye message] The UA RBC) system which ge nerated this result tra nsmitted reference range : <=2. The reference range was not used to interpr et this result as satish l/abnormal. [facility] AND [id number] 19:24:00 Test Item Value Reference Range Interpretation Comments UA Leuk Est (test Moderate *ABN*(08/24/14 code = UA Leuk Est) 1:24 PM) [facility] AND [id number] 19:24:00 Test Item Value Reference Range Interpretation Comments UA Nitrite (test code Negative (08/24/14 1:24 = UA Nitrite) PM) [facility] AND [id number] 19:24:00 Test Item Value Reference Range Interpretation Comments UA Urobilinogen (test code = UA 0.2 0.1-1.0 Urobilinogen) [facility] AND [id number] 19:24:00 Test Item Value Reference Range Interpretation Comments UA Ketones (test code Negative *NA*(08/24/14 = UA Ketones) 1:24 PM) [facility] AND [id number] 19:24:00 Test Item Value Reference Range Interpretation Comments UA Blood (test code = Negative (08/24/14 1:24 UA Blood) PM) [facility] AND [id number] 19:24:00 Test Item Value Reference Range Interpretation Comments UA Bili (test code = Negative *NA*(08/24/14 UA Bili) 1:24 PM) [facility] AND [id number] 19:24:00 Test Item Value Reference Range Interpretation Comments UA Color (test code = Yellow *NA*(08/24/14 UA Color) 1:24 PM) [facility] AND [id number] 19:24:00 Test Item Value Reference Range Interpretation Comments UA Glucose (test code Negative (08/24/14 1:24 = UA Glucose) PM) [facility] AND [id number] 19:24:00 Test Item Value Reference Range Interpretation Comments UA Protein (test code Negative (08/24/14 1:24 = UA Protein) PM) [facility] AND [id number] 19:24:00 Test Item Value Reference Range Interpretation Comments UA pH (test code = UA pH) 6.0 1 5.0-8.0 [facility] AND [id number] 19:24:00 Test Item Value Reference Range Interpretation Comments UA Spec Grav (test code *NA*(08/24/14 1:24 PM) = UA Spec Grav) [facility] AND [id number] 19:24:00 Test Item Value Reference Range Interpretation Comments UA Turbidity (test code = Clear (08/24/14 1:24 UA Turbidity) PM) [facility]2015-01-12 19:24:00 Test Item Value Reference Range Interpretation Comments Lipase Lvl (test code = Lipase Lvl) 104 73-393 [facility]2015-01-12 19:24:00 Test Item Value Reference Range Interpretation Comments eGFR (test code = eGFR) 109 [facility]2015-01-12 19:24:00 Test Item Value Reference Range Interpretation Comments Bili Total (test code = Bili Total) 0.6 0.2-1.3 [facility]2015-01-12 19:24:00 Test Item Value Reference Range Interpretation Comments Alk Phos (test code = Alk Phos) 72 39-136 [facility]2015-01-12 19:24:00 Test Item Value Reference Range Interpretation Comments Calcium Lvl (test code = Calcium Lvl) 8.8 8.5-10.5 [facility]2015-01-12 19:24:00 Test Item Value Reference Range Interpretation Comments CO2 (test code = CO2) 28 24-32 [facility]2015-01-12 19:24:00 Test Item Value Reference Range Interpretation Comments Chloride Lvl (test code = Chloride Lvl) 107 95-109 [facility]2015-01-12 19:24:00 Test Item Value Reference Range Interpretation Comments Potassium Lvl (test code = Potassium 3.9 3.5-5.1 Lvl) [facility]2015-01-12 19:24:00 Test Item Value Reference Range Interpretation Comments Glucose Lvl (test code = Glucose Lvl) 90 70-99 [facility]2015-01-12 19:24:00 Test Item Value Reference Range Interpretation Comments Sodium Lvl (test code = Sodium Lvl) 138 135-145 [facility]2015-01-12 19:24:00 Test Item Value Reference Range Interpretation Comments BUN (test code = BUN) 7 7-22 [place] 035515-01-12 19:24:00 Test Item Value Reference Range Interpretation Comments Creatinine Lvl (test code = Creatinine 0.7 0.5-1.4 Lvl) [facility]2015-01-12 19:24:00 Test Item Value Reference Range Interpretation Comments ALT (test code = ALT) 23 See_Comment [Auto mated message] The system which ge nerated this result transmit gaye reference range : <=65. The reference range was not used to interpr et this result as satish l/abnormal. [facility]2015-01-12 19:24:00 Test Item Value Reference Range Interpretation Comments AST (test code = AST) 12 See_Comment [Auto mated message] The system which ge nerated this result transmit gaye reference range : <=37. The reference range was not used to interpr et this result as satish l/abnormal. [facility]2015-01-12 19:24:00 Test Item Value Reference Range Interpretation Comments Albumin Lvl (test code = Albumin Lvl) 3.8 3.5-5.0 [facility]2015-01-12 19:24:00 Test Item Value Reference Range Interpretation Comments Total Protein (test code = Total 8.0 6.4-8.4 Protein) [facility]2015-01-12 19:24:00 Test Item Value Reference Range Interpretation Comments A/G Ratio (test code = A/G Ratio) 0.9 0.7-1.6 [facility]2015-01-12 19:24:00 Test Item Value Reference Range Interpretation Comments AGAP (test code = AGAP) 6.9 10.0-20.0 [place] [id number] 19:24:00 Test Item Value Reference Range Interpretation Comments B/C Ratio (test code = B/C Ratio) 10 6-25 [facility] [id number] 19:24:00 Test Item Value Reference Range Interpretation Comments Globulin (test code = Globulin) 4.2 2.0-4.0 [facility]fXCBRTIKDDEXTN0562-63-43 19:24:00 Test Item Value Reference Range Interpretation Comments S Preg (test code = S Negative *NA*(08/24/14 Preg) 1:24 PM) [facility] CampusGtaletzKPBJXHUTIV0655-66-40 19:24:00 Test Item Value Reference Range Interpretation Comments WBC (test code = WBC) 11.3 3.7-10.4 [facility] CampusVgmltqjHUPPIMXWDV6043-17-82 19:24:00 Test Item Value Reference Range Interpretation Comments RBC (test code = RBC) 4.75 4.20-5.40 [facility] CampusIaloufcDWTRBJUDGD0843-85-96 19:24:00 Test Item Value Reference Range Interpretation Comments Platelet (test code = Platelet) 402 133-450 [facility] CampusNihvbanQTYIFYTLBL6810-81-04 19:24:00 Test Item Value Reference Range Interpretation Comments MCV (test code = MCV) 89.9 80.0-98.0 [facility] CampusMlqpfbrKQBYGDWIHK9383-17-40 19:24:00 Test Item Value Reference Range Interpretation Comments Hct (test code = Hct) 42.7 36.0-48.0 [facility] CampusIrtohhaAPEYZZDNDP4610-67-47 19:24:00 Test Item Value Reference Range Interpretation Comments Hgb (test code = Hgb) 14.5 12.0-16.0 [facility] CampusMnmdxfrZWQVMSRQWE0494-33-67 19:24:00 Test Item Value Reference Range Interpretation Comments RDW (test code = RDW) 13.5 11.5-14.5 [facility] CampusRvqsiwgAFVCYSQHNQ9666-64-14 19:24:00 Test Item Value Reference Range Interpretation Comments MCHC (test code = MCHC) 34.0 32.0-36.0 [facility] CampusPybjdegTIQRIKMBQT1465-14-02 19:24:00 Test Item Value Reference Range Interpretation Comments MCH (test code = MCH) 30.6 pg 27.0-31.0 [facility] CampusTdztvamOAWGYSDYAV6138-36-73 19:24:00 Test Item Value Reference Range Interpretation Comments MPV (test code = MPV) 8.1 7.4-10.4 [facility] CampusXwmceflVHMGUGGKHR0878-78-91 19:24:00 Test Item Value Reference Range Interpretation Comments Stomatocyte (test code = Stomatocyte) Slight [facility] CampusXtvlmweKYAJSFDGCU9793-51-33 19:24:00 Test Item Value Reference Range Interpretation Comments Basophils # (test code 0.1 See_Comment [Aut omated message] The = Basophils #) system which generated this result tra nsmitted reference range : <=0.2. The reference r ozzy was not used to int erpret this result as normal/abnormal . [facility] CampusRpqmcemUMEIZJOHGV0272-05-51 19:24:00 Test Item Value Reference Range Interpretation Comments Eosinophils # (test code 0.2 See_Comment [A utomated message] The = Eosinophils #) system whic h generated this result tra nsmitted reference range : <=0.5. The reference r ozzy was not used to int erpret this result as normal/abnormal . [facility] CampusMgrjzluOJYITFHRLP8043-79-58 19:24:00 Test Item Value Reference Range Interpretation Comments Hypochrom (test code = 1+ (08/24/14 1:24 PM) Hypochrom) [facility] CampusRtevbizKWSXJMLWGY7853-68-61 19:24:00 Test Item Value Reference Range Interpretation Comments Lymphocytes # (test code = Lymphocytes 2.8 1.0-5.5 #) [facility] CampusFmochckZRKVONQLQX5930-77-33 19:24:00 Test Item Value Reference Range Interpretation Comments Segs-Bands # (test code = Segs-Bands #) 8.1 1.5-8.1 [facility] CampusLsgffwhWUZRLUQFSC3919-83-44 19:24:00 Test Item Value Reference Range Interpretation Comments Monocytes # (test code 0.2 See_Comment [Aut omated message] The = Monocytes #) system which generated this result tra nsmitted reference range : <=0.8. The reference r ozzy was not used to int erpret this result as normal/abnormal . [facility] CampusGtdnaaiHNOZOAYDFO5834-40-85 19:24:00 Test Item Value Reference Range Interpretation Comments Lymphocytes (test code = Lymphocytes) 24.5 20.0-40.0 [facility] CampusHstrezdMXIGMZQOTL5090-34-48 19:24:00 Test Item Value Reference Range Interpretation Comments Segs (test code = Segs) 71.8 45.0-75.0 [facility] CampusRhqgiqfLRTNFHMQIR1661-93-72 19:24:00 Test Item Value Reference Range Interpretation Comments Basophils (test code = 0.6 See_Comment [Aut omated message] The Basophils) system which ge nerated this result tra nsmitted reference range : <=1.0. The reference r ozzy was not used to int erpret this result as normal/abnormal . [facility] CampusOrzlozzVFYXDEKZCX8842-59-44 19:24:00 Test Item Value Reference Range Interpretation Comments Monocytes (test code = Monocytes) 1.5 2.0-12.0 [facility] CampusSqbuavaPHPKYGFOSI8743-44-84 19:24:00 Test Item Value Reference Range Interpretation Comments Eosinophils (test code = 1.6 See_Comment [A utomated message] The Eosinophils) system which ge nerated this result tra nsmitted reference range : <=4.0. The reference r ozzy was not used to int erpret this result as normal/abnormal . [facility] CampusWzhgchoPTQEARMBBT0297-67-16 19:24:00 Test Item Value Reference Range Interpretation Comments Plt Morph (test code = Normal (08/24/14 1:24 Plt Morph) PM) [facility] AND [id number] 19:24:00 Test Item Value Reference Range Interpretation Comments UA Sq Epi (test code = UA Sq Occasional /LPF Epi) [facility] AND [id number] 19:24:00 Test Item Value Reference Range Interpretation Comments UA Bacteria (test code = UA Occasional /HPF Bacteria) [facility] AND [id number] 19:24:00 Test Item Value Reference Range Interpretation Comments UA Mucus (test code = None Seen (08/24/14 UA Mucus) 1:24 PM) [facility] AND [id number] 19:24:00 Test Item Value Reference Range Interpretation Comments UA WBC (test code = UA WBC) 0-2 /HPF [facility] AND [id number] 19:24:00 Test Item Value Reference Range Interpretation Comments UA RBC (test code = 0-2 /HPF See_Comment [Automa gaye message] The UA RBC) system which ge nerated this result tra nsmitted reference range : <=2. The reference range was not used to interpr et this result as satish l/abnormal. [facility] AND [id number] 19:24:00 Test Item Value Reference Range Interpretation Comments UA Leuk Est (test Moderate *ABN*(08/24/14 code = UA Leuk Est) 1:24 PM) [facility] AND [id number] 19:24:00 Test Item Value Reference Range Interpretation Comments UA Nitrite (test code Negative (08/24/14 1:24 = UA Nitrite) PM) [facility] AND [id number] 19:24:00 Test Item Value Reference Range Interpretation Comments UA Urobilinogen (test code = UA 0.2 0.1-1.0 Urobilinogen) [facility] AND [id number] 19:24:00 Test Item Value Reference Range Interpretation Comments UA Ketones (test code Negative *NA*(08/24/14 = UA Ketones) 1:24 PM) [facility] AND [id number] 19:24:00 Test Item Value Reference Range Interpretation Comments UA Blood (test code = Negative (08/24/14 1:24 UA Blood) PM) [facility] AND [id number] 19:24:00 Test Item Value Reference Range Interpretation Comments UA Bili (test code = Negative *NA*(08/24/14 UA Bili) 1:24 PM) [facility] AND [id number] 19:24:00 Test Item Value Reference Range Interpretation Comments UA Color (test code = Yellow *NA*(08/24/14 UA Color) 1:24 PM) [facility] AND [id number] 19:24:00 Test Item Value Reference Range Interpretation Comments UA Glucose (test code Negative (08/24/14 1:24 = UA Glucose) PM) [facility] AND [id number] 19:24:00 Test Item Value Reference Range Interpretation Comments UA Protein (test code Negative (08/24/14 1:24 = UA Protein) PM) [facility] AND [id number] 19:24:00 Test Item Value Reference Range Interpretation Comments UA pH (test code = UA pH) 6.0 1 5.0-8.0 [facility] AND [id number] 19:24:00 Test Item Value Reference Range Interpretation Comments UA Spec Grav (test code *NA*(08/24/14 1:24 PM) = UA Spec Grav) [facility] AND [id number] 19:24:00 Test Item Value Reference Range Interpretation Comments UA Turbidity (test code = Clear (08/24/14 1:24 UA Turbidity) PM) [facility]2015-01-12 19:24:00 Test Item Value Reference Range Interpretation Comments Lipase Lvl (test code = Lipase Lvl) 104 73-393 [facility]2015-01-12 19:24:00 Test Item Value Reference Range Interpretation Comments eGFR (test code = eGFR) 109 [facility]2015-01-12 19:24:00 Test Item Value Reference Range Interpretation Comments Bili Total (test code = Bili Total) 0.6 0.2-1.3 [facility]2015-01-12 19:24:00 Test Item Value Reference Range Interpretation Comments Alk Phos (test code = Alk Phos) 72 39-136 [facility]2015-01-12 19:24:00 Test Item Value Reference Range Interpretation Comments Calcium Lvl (test code = Calcium Lvl) 8.8 8.5-10.5 [facility]2015-01-12 19:24:00 Test Item Value Reference Range Interpretation Comments CO2 (test code = CO2) 28 24-32 [facility]2015-01-12 19:24:00 Test Item Value Reference Range Interpretation Comments Chloride Lvl (test code = Chloride Lvl) 107 95-109 [facility]2015-01-12 19:24:00 Test Item Value Reference Range Interpretation Comments Potassium Lvl (test code = Potassium 3.9 3.5-5.1 Lvl) [facility]2015-01-12 19:24:00 Test Item Value Reference Range Interpretation Comments Glucose Lvl (test code = Glucose Lvl) 90 70-99 [facility]2015-01-12 19:24:00 Test Item Value Reference Range Interpretation Comments Sodium Lvl (test code = Sodium Lvl) 138 135-145 [facility]2015-01-12 19:24:00 Test Item Value Reference Range Interpretation Comments BUN (test code = BUN) 7 7-22 [facility]2015-01-12 19:24:00 Test Item Value Reference Range Interpretation Comments Creatinine Lvl (test code = Creatinine 0.7 0.5-1.4 Lvl) [facility]2015-01-12 19:24:00 Test Item Value Reference Range Interpretation Comments ALT (test code = ALT) 23 See_Comment [Auto mated message] The system which ge nerated this result transmit gaye reference range : <=65. The reference range was not used to interpr et this result as satish l/abnormal. [facility]2015-01-12 19:24:00 Test Item Value Reference Range Interpretation Comments AST (test code = AST) 12 See_Comment [Auto mated message] The system which ge nerated this result transmit gaye reference range : <=37. The reference range was not used to interpr et this result as satish l/abnormal. [facility]2015-01-12 19:24:00 Test Item Value Reference Range Interpretation Comments Albumin Lvl (test code = Albumin Lvl) 3.8 3.5-5.0 [facility]2015-01-12 19:24:00 Test Item Value Reference Range Interpretation Comments Total Protein (test code = Total 8.0 6.4-8.4 Protein) [facility]2015-01-12 19:24:00 Test Item Value Reference Range Interpretation Comments A/G Ratio (test code = A/G Ratio) 0.9 0.7-1.6 [facility]2015-01-12 19:24:00 Test Item Value Reference Range Interpretation Comments AGAP (test code = AGAP) 6.9 10.0-20.0 [facility]2015-01-12 19:24:00 Test Item Value Reference Range Interpretation Comments B/C Ratio (test code = B/C Ratio) 10 6-25 [facility]2015-01-12 19:24:00 Test Item Value Reference Range Interpretation Comments Globulin (test code = Globulin) 4.2 2.0-4.0 [facility]XlaubzeKCJHCPQIVMGGA6135-22-05 19:24:00 Test Item Value Reference Range Interpretation Comments S Preg (test code = S Negative *NA*(08/24/14 Preg) 1:24 PM) [facility] CampusMdbknagDFTBSKPCZO0909-08-53 19:24:00 Test Item Value Reference Range Interpretation Comments WBC (test code = WBC) 11.3 3.7-10.4 [facility] CampusQloiwatYZCTNWBLAP9536-79-62 19:24:00 Test Item Value Reference Range Interpretation Comments RBC (test code = RBC) 4.75 4.20-5.40 [facility] CampusLcovgryWQHCVXZLFM2235-57-43 19:24:00 Test Item Value Reference Range Interpretation Comments Platelet (test code = Platelet) 402 133-450 [facility] CampusZawalalBMQLKDMDYR4009-79-55 19:24:00 Test Item Value Reference Range Interpretation Comments MCV (test code = MCV) 89.9 80.0-98.0 [facility] CampusKzijyekAVYBIBRMNH4669-27-84 19:24:00 Test Item Value Reference Range Interpretation Comments Hct (test code = Hct) 42.7 36.0-48.0 [id number] 19:24:00 Test Item Value Reference Range Interpretation Comments Hgb (test code = Hgb) 14.5 12.0-16.0 [facility] [id number] 19:24:00 Test Item Value Reference Range Interpretation Comments RDW (test code = RDW) 13.5 11.5-14.5 [facility] [id number] 19:24:00 Test Item Value Reference Range Interpretation Comments MCHC (test code = MCHC) 34.0 32.0-36.0 [facility] [id number] 19:24:00 Test Item Value Reference Range Interpretation Comments MCH (test code = MCH) 30.6 pg 27.0-31.0 [facility] [id number] 19:24:00 Test Item Value Reference Range Interpretation Comments MPV (test code = MPV) 8.1 7.4-10.4 [facility] [id number] 19:24:00 Test Item Value Reference Range Interpretation Comments Stomatocyte (test code = Stomatocyte) Slight [facility] [id number] 19:24:00 Test Item Value Reference Range Interpretation Comments Basophils # (test code 0.1 See_Comment [Aut omated message] The = Basophils #) system which generated this result tra nsmitted reference range : <=0.2. The reference r ozzy was not used to int erpret this result as normal/abnormal . [facility] [id number] 19:24:00 Test Item Value Reference Range Interpretation Comments Eosinophils # (test code 0.2 See_Comment [A utomated message] The = Eosinophils #) system whic h generated this result tra nsmitted reference range : <=0.5. The reference r ozzy was not used to int erpret this result as normal/abnormal . [facility] [id number] 19:24:00 Test Item Value Reference Range Interpretation Comments Hypochrom (test code = 1+ (08/24/14 1:24 PM) Hypochrom) [facility] [id number] 19:24:00 Test Item Value Reference Range Interpretation Comments Lymphocytes # (test code = Lymphocytes 2.8 1.0-5.5 #) [facility] [id number] 19:24:00 Test Item Value Reference Range Interpretation Comments Segs-Bands # (test code = Segs-Bands #) 8.1 1.5-8.1 [facility] [id number] 19:24:00 Test Item Value Reference Range Interpretation Comments Monocytes # (test code 0.2 See_Comment [Aut omated message] The = Monocytes #) system which generated this result tra nsmitted reference range : <=0.8. The reference r ozzy was not used to int erpret this result as normal/abnormal . [facility] [id number] 19:24:00 Test Item Value Reference Range Interpretation Comments Lymphocytes (test code = Lymphocytes) 24.5 20.0-40.0 [facility] [id number] 19:24:00 Test Item Value Reference Range Interpretation Comments Segs (test code = Segs) 71.8 45.0-75.0 [facility] [id number] 19:24:00 Test Item Value Reference Range Interpretation Comments Basophils (test code = 0.6 See_Comment [Aut omated message] The Basophils) system which ge nerated this result tra nsmitted reference range : <=1.0. The reference r ozzy was not used to int erpret this result as normal/abnormal . [facility] [id number] 19:24:00 Test Item Value Reference Range Interpretation Comments Monocytes (test code = Monocytes) 1.5 2.0-12.0 [facility] [id number] 19:24:00 Test Item Value Reference Range Interpretation Comments Eosinophils (test code = 1.6 See_Comment [A utomated message] The Eosinophils) system which ge nerated this result tra nsmitted reference range : <=4.0. The reference r ozzy was not used to int erpret this result as normal/abnormal . [facility] [id number] 19:24:00 Test Item Value Reference Range Interpretation Comments Plt Morph (test code = Normal (08/24/14 1:24 Plt Morph) PM) [facility] AND [id number] 19:24:00 Test Item Value Reference Range Interpretation Comments UA Sq Epi (test code = UA Sq Occasional /LPF Epi) [facility] AND [id number] 19:24:00 Test Item Value Reference Range Interpretation Comments UA Bacteria (test code = UA Occasional /HPF Bacteria) [facility] AND [id number] 19:24:00 Test Item Value Reference Range Interpretation Comments UA Mucus (test code = None Seen (08/24/14 UA Mucus) 1:24 PM) [facility] AND [id number] 19:24:00 Test Item Value Reference Range Interpretation Comments UA WBC (test code = UA WBC) 0-2 /HPF [facility] AND [id number] 19:24:00 Test Item Value Reference Range Interpretation Comments UA RBC (test code = 0-2 /HPF See_Comment [Automa gaye message] The UA RBC) system which ge nerated this result tra nsmitted reference range : <=2. The reference range was not used to interpr et this result as satish l/abnormal. [facility] AND [id number] 19:24:00 Test Item Value Reference Range Interpretation Comments UA Leuk Est (test Moderate *ABN*(08/24/14 code = UA Leuk Est) 1:24 PM) [facility] AND [id number] 19:24:00 Test Item Value Reference Range Interpretation Comments UA Nitrite (test code Negative (08/24/14 1:24 = UA Nitrite) PM) [facility] AND [id number] 19:24:00 Test Item Value Reference Range Interpretation Comments UA Urobilinogen (test code = UA 0.2 0.1-1.0 Urobilinogen) [facility] AND [id number] 19:24:00 Test Item Value Reference Range Interpretation Comments UA Ketones (test code Negative *NA*(08/24/14 = UA Ketones) 1:24 PM) [facility]
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
[2022-10-11] MEDS ORDERED: HYDROCODONE/APAP 10/325 TAB ONE (16:16)
[2022-10-11] MEDS ORDERED: dexAMETHasone 10 MG/ML VIAL ONE (16:16)
== END 2022-10-11 16:23 | disposition home or self-care (01) ==
LOC: ER 14:21
DX: M54.2 Cervicalgia (principal); S16.1XXD Strain of muscle, fascia and tendon at neck level, subsequent encounter; R29.91 Unspecified symptoms and signs involving the musculoskeletal system; V89.2XXA Person injured in unspecified motor-vehicle accident, traffic, initial encounter; Z88.3 Allergy status to other anti-infective agents; Z88.6 Allergy status to analgesic agent; Z88.5 Allergy status to narcotic agent; Z91.013 Allergy to seafood; Z91.040 Latex allergy status; Z91.048 Other nonmedicinal substance allergy status
CPT/HCPCS: J1100

== ENCOUNTER 2022-10-14 13:11 | Emergency (ER) | payer OTHER ==
--- OUTSIDE RECORDS SUMMARY | 2022-10-14 13:29 | XMS REPORT | Continuity of Care Document ---
:1975 Author Organization [facility] t Address [address] [place] [address] Care Team Providers Name Role Phone Declan Field Primary Care Physician [phone] KIT OLIVARES Attending Clinician Unavailable Halima Vargas MD Attending Clinician HALIMA VARGAS Attending Clinician Unavailable Karissa Attending Clinician Unavailable Haroon Ramirez MD Attending Clinician Joe Boles DO Attending Clinician TEJAL RIZZO Attending Clinician Unavailable Florence HUNTLEYWaleska Attending Clinician Unavailable Starr Vinson RN Attending Clinician Unavailable KIT OLIVARES M.D. Attending Clinician Unavailable VIRAL COFFEY Attending Clinician Unavailable Felicia Frost MD Attending Clinician LUCY NASCIMENTO M.D. Attending Clinician Unavailable Bladimir Brumfield MD Attending Clinician [phone] Obdulio Ragland MD Attending Clinician MD OBDULIO RAGLAND Attending Clinician Unavailable Inez García MD Attending Clinician [phone] JUDE MATHEWS M.D. Attending Clinician Unavailable Woo Greenberg DO Attending Clinician [phone] [place] MD Attending Clinician Clarice Brannon MD Attending Clinician Lj Thakkar Attending Clinician MD LJ THAKKAR Attending Clinician Unavailable Jose Elias Torres MD Attending Clinician Lydia Oden MD Attending Clinician [phone] Maribel Dickey MD Attending Clinician MD [...] Number Effective Date Expiration Date Brannon richards [facility] [id number] 2020 STAR 00:00:00 CDC REVIEW [id number] 2020 00:00:00 Problems Condition Condition Condition Status [...] VAGINAL Diagnosis Active 2016-08-10 Memoria BLEEDING BLEEDING 702 09:01:00 l Active 23:00: Antonio 02/12/2016 00 [facility] D25.9 - D25.9 - Diagnosis Active 2014-082015-06-08 Memoria "LEIOMYOMA "LEIOMYOMA 15:22:00 l OF UTERUS, OF UTERUS, 00:01: He adeliaann UNSPECIFI" UNSPECIFI" 00 Active 06/08/2015 [facility] [place] VAGINAL VAGINAL Diagnosis Active 2014-12-21 Memoria BLEEDING- BLEEDING- 09-03 13:01:00 l 6 WKS PG 6 WKS PG 00:00: Jordy n Active 09/03/2014 [facility] CONSTIPATI CONSTIPAT Diagnosis Active 2014-12-14 Memoria ON, NAUSEA ION, 12 09:23:00 l NAUSEA 00:00: Antonio Active 00 08/24/2014 [facility] No known No known Disease Unive rs active active ity of problems problems [facility] History of History of Problem Resolve [...] d 00:25:42 l Resolved Antonio Problem 02/16/2016 [facility] Migraine Migraine Problem Resolve 2016-02-16 Memoria (disorder) (disorder) d 00:25:42 l Resolved [place] Problem 02/16/2016 [facility] Mitral Mitral Problem Resolve 2016-02-16 Mem oria valve valve d 00:25:42 l prolapse prolapse Jordy n (disorder) (disorder) Resolved Problem 02/16/2016 [facility] Anxiety Anxiety Problem Active 2016-02-16 Me amelia (finding) (finding) 00:25:42 l Active [place] Problem 02/16/2016 [facility] Bipolar Bipolar Problem Active 2016-02-16 Me moria (qualifier (qualifier 00:25:42 l value) value) [place] Active Problem 02/16/2016 [facility] Congestive Problem Active 2016-02-16 emoria heart Congestive 00:25:42 l failure heart [place] (disorder) failure (disorder) Active Problem 02/16/2016 [place] Depressive Depressiv Problem Active 2016-02-16 Memoria disorder e disorder 00:25:42 l (disorder) (disorder) He rmann Active Problem 02/16/2016 [facility] Gastroesop Gastroeso Problem Active 2016-02-16 Memoria hageal phageal 00:25:42 l reflux reflux Antonio disease disease (disorder) (disorder) Active Problem 02/16/2016 [facility] Heart Heart Problem Active 2016-02-16 Memor ia failure failure 00:25:42 l (disorder) (disorder) He rmann Active Problem 02/16/2016 [facility] Hypertensi Hypertens Problem Active 2016-02-16 Memoria ve kellee 00:25:42 l disorder, disorder, Herm alem systemic systemic arterial arterial (disorder) (disorder) Active Problem 02/16/2016 [facility] Multiple Multiple Problem Active 2016-02-16 Memoria sclerosis sclerosis 00:25:42 l (disorder) (disorder) He rmann Active Problem 02/16/2016 [facility] Osteoarthr Osteoarth Problem Active 2016-02-16 Memoria itis ritis 00:25:42 l (disorder) (disorder) He rmann Active Problem 02/16/2016 [facility] Drug Drug Problem Active 2016-02-16 Memor ia overdose overdose 00:25:42 l (disorder) (disorder) He rmann Active Problem 02/16/2016 [facility] Rheumatoid Rheumatoi Problem Active 2016-02-16 Memoria arthritis d 00:25:42 l (disorder) arthritis Her sarkar (disorder) Active Problem 02/16/2016 [facility] 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 00:25:42 l (disorder) (disorder) [facility]mann Active Problem 02/16/2016 [facility] Uterine Uterine Problem Active 2016-02-16 Me moria leiomyoma leiomyoma 00:25:42 l (disorder) (disorder) He rmann Active Problem 02/16/2016 [facility] Urinary Urinary Problem Active 2016-02-16 Me moria tract tract 00:25:42 l infectious infectious He rmann disease disease (disorder) (disorder) Active Problem 02/16/2016 [facility] 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 [...] Anemia, 00 d unspecifie d 02/13/2016 02/16/2016 [facility] Discharge Discharge Problem 2016-02-16 2016-02-16 Memoria Diagnosis: Diagnosis: 02-12 00:25:42 00:25:42 l Abnormal Abnormal 05:00: Jordy n uterine uterine 00 and and vaginal vaginal bleeding, bleeding, unspecifie unspecifie d d 02/13/2016 6 [facility] Discharge Discharge Problem 2014-09-06 2014-09-06 Memoria Diagnosis: Diagnosis: 09-04 16:01:45 16:01:45 l Vaginal Vaginal 06:00: [place] bleeding bleeding 09/04/2014 09/06/2014 [facility] Discharge Discharge Problem 2014-09-06 2014-09-06 Memoria Diagnosis: Diagnosis: 09-04 16:01:45 16:01:45 l Dysmenorrh Dysmenorrh 06:00: He rodgre ea ea 09/04/2014 09/06/2014 [facility] Discharge Discharge Problem 2014-08-26 2014-08-26 Memoria Diagnosis: Diagnosis: 1- 17:22:44 17:22:44 l Nausea Nausea 06:00: Antonio 08/24/201408/26/2014 [facility] Discharge Discharge Problem 2014-08-26 2014-08-26 Memoria Diagnosis: Diagnosis: 1- 17:22:44 17:22:44 l Constipati Constipati 06:00: He rmalem on on 08/24/2014 08/26/2014 [facility] Allergies, Adverse Reactions, Alerts Allergy Allergy Status [...] Active Memori a d d 8-09 l radioVizy radiocon 00:00: Jordy roberto trast trast 00 [...] Food Food Active Memoria Seafood Seafood l [place] Latex Latex Active Memoria l [place] morphine morphine Active Memori a l [place] vancomyc vancomyc Active Memori a in in l [place] Elavil Elavil Active Memoria l [place] STEROIDS Allergy Active SLSL Family History Family Member Diagnosis Comments Start Date Stop Date Source Family member No history [facility] Maternal aunt Cancer [facility] Maternal aunt Melanoma [facility] Maternal grandfather Stroke [facility] Natural mother Diabetes [facility] Natural sister Stroke [facility] Maternal uncle Leukemia [facility] Social History Social Habit Start Date Stop Date Quantity Comments Source History SDOH [facility] Alcohol Frequency Hospita l History SDOH [facility] Std [facility] Drinks History SDOH [facility] Alcohol [facility] Exposure to 2022-08-04 2022-08-14 Not sure [facility] SARS-CoV-2 00:00:00 20:42:00 [facility] (event) Branch Alcohol intake 2021-06-29 2021-06-29 Current non-drinker [facility] 00:00:00 00:00:00 of alcohol [facility] (finding) Alcohol Comment 2018-08-02 2018-08-[address] 00:00:00 00:00:00 Hospital Tobacco use and 2014-05-15 2014-05-[address] [facility] exposure 00:00:00 00:00:00 [facility] Sex Assigned At [address] [facility] 00:00:00 00[facility]00 Medical Center Smoking Status Start Date Stop Date Source Tobacco smoking consumption [facility] Branch Social History [facility] Medications Ordered Filled Start Stop Current [...] 15 Minutes, 100 mL levETIRAcet 0 Yes [id number] 1000mg Take 1 [facility] am (KEPPRA) - tablet by ity of 1,000 mg 00:00: mouth in [place] tablet 00 the morning and 1 tablet in the evening. Lacosamide Yes [id number] 200mg Take 1 Univers (VIMPAT) - tablet by ity of 200 mg 00:00: mouth in [place] tablet 00 the morning Branch and 1 tablet in the evening. ALPRAZolam Yes [id number] .25mg Take 1 Univers (XANAX) - tablet by ity of 0.25 mg 00:00: mouth in [place] tablet 00 the morning Branch and 1 tablet at noon and 1 tablet in the evening. acetaminoph 2020-08- No [id number] 1{tbl} Q6H Take 1 [facility] en-codeine 08-[address] (TYLENOL 00:00: 05:59 mouth Hospita WITH 00 :00 every 6 l CODEINE #3) (six) 300-30 mg hours as per tablet needed for moderate pain for up to 5 days .acute pain. acetaminoph 2020-08 No [id number] 1{tbl} Q6H Take 1 [facility] en-codeine 08-29 [...] He alth 12:13: s 10 bumetanide Yes [id number] 2mg QD Take 1 U T (Bumex) 2 - tablet (2 Healt h MG tablet 00:00: mg total) 00 by mouth 1 (one) time each day. lisinopril Yes [id number] 2.5mg QD Take 1 UT 2.5 MG 04-25 tablet Health tablet 00:00: (2.5 mg 00 total) by mouth 1 (one) time each day. metoprolol Yes [id number] 50mg Q.5D Take 1 U T succinate [...] 50 MG 24 hr tablet lisinopril Yes [id number] 2.5mg QD Take 1 UT 2.5 MG -29 tablet Health tablet 00:00: (2.5 mg 00 total) by mouth 1 (one) time each day. metoprolol Yes [id number] 50mg Q.5D Take 1 U T succinate -29 tablet (50 Heal th XL 00:00: mg total) (Toprol-XL) 00 by mouth 2 50 MG 24 hr (two) tablet times a day. lisinopril 2020- No [id number] 2.5mg QD Take 1 UT 2.5 MG -04-25 tablet Health tablet 00:00: 00:00 (2.5 mg 00 :00 total) by mouth 1 (one) time each day. metoprolol 2020- No [id number] 50mg Q.5D Take 1 UT succinate -04-25 [...] capsule 59 l busPIRone 0 Yes 15mg Q.30397747 Take 15 mg [facility] (BUSPAR) 10 4-26 [id number] by mouth [address] MG tablet 16:32: [...] capsule 59 l busPIRone 0 Yes 15mg Q.[id number] Take 15 mg [facility] (BUSPAR) 10 - [id number] by mouth 3 st MG tablet 11:32: [...] Hospita capsule 59 l busPIRone Yes 15mg Q.56112537 Take 15 mg [facility] (BUSPAR) 10 -26 [id number] by mouth [address] MG tablet 11:32: [...] capsule 59 l busPIRone 0 Yes 15mg Q.37191740 Take 15 mg [facility] (BUSPAR) 10 -26 [id number] by mouth [address] MG tablet 11:32: [...] mcg/actuati used February on 2019. inhaler linaCLOtide 2021-0 Yes 72ug QD Take [...] Hospita capsule 59 l busPIRone Yes 15mg Q.90463801 Take 15 mg [facility] (BUSPAR) 10 -26 [id number] [address] mouth [address] MG tablet 11:32: [...] capsule 59 l busPIRone 0 Yes 15mg Q.85602174 Take 15 mg [facility] (BUSPAR) 10 4-26 [id number] by mouth [address] MG tablet 11:32: [...] mcg/actuati used February on 2019. inhaler linaCLOtide 0 Yes 72ug QD Take [...] capsule 59 l busPIRone 2020-0 Yes 15mg Q.13875587 Take 15 mg [facility] (BUSPAR) 10 4-26 [id number] [address] mouth [address] MG tablet 11:32: [...] Hospita capsule 59 l busPIRone Yes 15mg Q.[id number] Take 15 mg [facility] (BUSPAR) 10 12-06 [id number] by mouth [address] MG tablet 11:32: [...] tablet hours for 10 [place] [id number] 1{tbl} Q6H Take 1-2 [facility] en-codeine 3-24 03-[address] (TYLENOL 00:00: 04:59 mouth Hospita WITH 00 :00 every 6 l CODEINE #3) (six) 300-30 mg hours as per tablet needed for moderate pain for up to 5 [place] [id number] 1{tbl} Q6H Take 1-2 Methodi en-codeine 3-24 03-[address] (TYLENOL 00:00: 04:59 mouth Hospita WITH 00 :00 every 6 l CODEINE #3) (six) 300-30 mg hours as per tablet needed for moderate pain for up to 5 [place] [id number] 1{tbl} Q6H Take 1-2 Methodi en-codeine 3-24 [...] 150mg Q.5D Take 1 Met hodi (VIMPAT) 09-[address] 150 mg 00:00: 00:00 (150 mg Hospita tablet 00 :00 total) by l mouth 2 (two) times a day for 30 days. levETIRAcet 2020- No 750mg Q.5D Take 1 Me thodi am (KEPPRA) 09-[address] 750 MG 00:00: 00:00 (750 mg Hospita tablet 00 :00 total) by l mouth 2 (two) times a day for 30 days. ALPRAZolam No .5mg QD Take 1 Meth ketty (Xanax) 0.5 09-[address] MG tablet 00:00: 00:00 (0.5 [...] QD Take 1 Meth ketty (Xanax) 0.5 1-30 02-[address] MG tablet 00:00: 00:00 (0.5 [...] per tablet day. diazePAM 2019- No 10mg Q.59678648 Take 10 mg [facility] (VALIUM) 5 05-08 [id number] by mouth 3 [address] MG tablet 17:49: [...] tablet needed for nausea or vomiting. methocarbam 2020- No 750mg Q.5D Take 750 [facility]i ol 05-08- mg by st (ROBAXIN) 17:49: 00:00 mouth 2 Hosp arcenio 750 MG 43 :00 (two) l tablet times a day. metoprolol 2020- No 50mg Q.5D Take 50 mg [...] migraine for up to 30 days. lactulose 2020- No 20g Q.[id number] Take 30 mL [facility] 20 gram/30 05-08 [id number] (20 g s t mL solution 00:00: 04:59 3D total) by Hospita 00 :00 mouth 3 l (three) times a day as needed (CONSTIPAT ION) for up to 30 days. meclizine 2020- No 25mg Q.[id number] Take 1 [facility] (ANTIVERT) 05-08 [id number] tablet (25 st 25 mg 00:00: 04:59 3D mg total) Hospit a tablet 00 :00 by mouth 3 l (three) times a day as needed for dizziness for up to 30 days. pregabalin 2019-0 2020- No 50mg Q.[id number] Take 2 [facility] (LYRICA) 25 -07 06- [id number] capsules st MG capsule 00:00: 04:59 3D (50 mg Hosp arcenio 00 :00 total) by l mouth 3 (three) times a day for 30 days. lisinopriL 2019-0 2020- No 2.5mg QD Take 1 Met hodi [...] 2.5mg Take 0.[address] (PROVENTIL, 02-20- mLs (2.5 Thais es VENTOLIN) 5 00:00: 23:59 mg total) Medical mg/mL 00 :00 by Center nebulizer nebulizati solution on every 6 (six) hours as needed for Wheezing. omeprazole No 20mg QD Take [address] (PRILOSEC) 02-20- capsule [facility] 20 MG 00:00: 23:59 (20 [...] Memoria 7- Route: l 09:11: IVP, Drug [place] 00 form: INJ, ONCE, Dosing Weight 68.182, kg, Priority: STAT, Start date: 02/13/16 4:11:00 CDT, Stop date: 02/13/16 4:11:00 CDT Sodium 2016-0 No 1,000 mL, Memori a Chloride 7- Rate: l 0.9% IV 09:11: 1,000 [place] 1000 mL 00 ml/hr, Infuse over: 1 hr, Route: IV, Dosing Weight 68.182 kg, Total Volume: 1,000, Start date: 02/13/16 4:11:00 CDT, Duration: 1 doses or times, Stop date: 02/13/16 5:10:00 CDT, Bolus Dose Reglan 2015-0 No 10 mg, Memoria 7 Route: l 09:11: IVP, Drug Antonio form: [...] Dose Reglan 2016-0 No 10 mg, Memoria 7 Route: l 09:11: IVP, Drug Antonio 00 [...] 7-03 Rate: l 0.9% IV 09:11: 1,000 [place] 1000 mL 00 ml/hr, Infuse over: 1 [...] 2016-0 No 650 mg, Mem oria en 7-03 Route: PO, l 08:17: Drug form: Antonio 00 TAB, ONCE, Dosing Weight 68.182, kg, Priority: STAT, Start date: 02/13/16 3:17:00 CDT, Stop date: 02/13/16 3:17:00 CDT Acetaminoph 2016-0 No 650 mg, Mem oria en 7- Route: PO, l 08:17: Drug form: [place] 00 TAB, ONCE, Dosing Weight 68.182, kg, [...] 02-12 Route: PO, l 08:17: Drug form: [place] 00 TAB, ONCE, Dosing Weight 68.182, kg, [...] 02-12 Route: PO, l 08:17: Drug form: [place] 00 TAB, ONCE, Dosing Weight 68.182, kg, Priority: STAT, Start date: 02/13/16 3:17:00 CDT, Stop date: 02/13/16 3:17:00 CDT Zofran 2016-0 No 4 mg, Memoria 02-12 Route: l 06:19: IVP, Drug [place] 00 form: INJ, ONCE, Dosing Weight 68.182, kg, Priority: STAT, Start date: 02/13/16 1:19:00 CDT, Stop date: 02/13/16 1:19:00 CDT Zofran 2016-0 No 4 mg, Memoria 7- Route: l 06:19: IVP, Drug [place] 00 form: INJ, ONCE, Dosing Weight 68.182, kg, Priority: STAT, Start date: 02/13/16 1:19:00 CDT, Stop date: 02/13/16 1:19:00 CDT Zofran 2016-0 No 4 mg, Memoria 7- Route: l 06:19: IVP, Drug [place] 00 form: INJ, ONCE, Dosing Weight 68.182, [...] Memoria 7- Route: l 06:19: IVP, Drug [place] 00 form: INJ, ONCE, Dosing Weight 68.182, kg, Priority: STAT, Start date: 02/13/16 1:19:00 CDT, Stop date: 02/13/16 1:19:00 CDT Zofran 2016-0 No 4 mg, Memoria 7- Route: l 06:19: IVP, Drug [place] 00 form: INJ, ONCE, Dosing Weight 68.182, kg, Priority: STAT, Start date: 02/13/16 1:19:00 CDT, Stop date: 02/13/16 1:19:00 CDT Saline 2016-0 No Notes: Memoria Flush 0.9% 7-03 (Same as: l 06:07: BD [place] 00 Posiflush) Saline No Notes: Memoria Flush 0.9% 7-03 (Same as: l 06:07: BD [place] 00 Posiflush) Saline No Notes: Memoria Flush 0.9% 7-03 (Same as: l 06:07: BD [place] 00 Posiflush) Saline No Notes: Memoria Flush 0.9% 7-03 (Same as: l 06:07: BD [place] 00 Posiflush) Saline No Notes: Memoria Flush 0.9% 7-03 (Same as: l 06:07: BD [place] 00 Posiflush) Saline No Notes: Memoria Flush 0.9% 7-03 (Same as: l 06:07: BD [place] 00 Posiflush) Saline No Notes: Memoria Flush [...] 1-23 Instructio l Tablet 08:52: ns: Take [place] [Motrin] 00 with food Ibuprofen Yes Special Memor ia 800 MG Oral 1-23 Instructio l Tablet 08:52: ns: Take Antonio [Motrin] 00 with food Ibuprofen Yes Special Memor ia 800 MG Oral 1-23 Instructio l Tablet 08:52: ns: Take [place] [Motrin] 00 with food Ibuprofen Yes Special Memor ia 800 MG Oral 1-23 Instructio l Tablet 08:52: ns: Take [place] [Motrin] 00 with food Ketorolac 2015-0 No 4 days Memor ia 1-23 l 08:49: [place] 00 Ketorolac No 4 days Memor ia 1-23 l 08:49: [place] 00 Ketorolac No 4 days Memor ia [...] PO, l Oral Tablet 21:41: Bedtime, # [place] [Lipitor] 00 30 tab, 0 Refill(s) metoprolol [...] PO, l Oral Tablet 21:41: Bedtime, # [place] [Lipitor] 00 30 tab, 0 Refill(s) metoprolol [...] PO, l Oral Tablet 21:41: Bedtime, # [place] [Lipitor] 00 30 tab, 0 Refill(s) metoprolol [...] Date Status Commen ts Source Name Name [facility] 2020-11-03 Completed [facility] 00:00:00 [facility] 2020-11-03 Completed [facility] 00:00:00 [facility] 2020-11-03 Completed [facility] 2020-[facility]03 Completed [facility] 00[facility]00:00 [facility] 2020-11-03 Completed [facility] 00:00:00 [facility] 2020-11-03 Completed [facility] 2020-11[facility]03 Completed [facility] 00:00:00 [facility] 2020-11-03 Completed [facility] 00:00:00 Hospital Vital Signs Vital Name Observation Time Observation Value Comments Source Systolic blood 2022-08-15 113 mm[Hg] [facility] pressure 04:00:00 [facility] Diastolic blood 2022-08-15 76 mm[Hg] [facility] o f pressure 04:00:00 [facility] Heart rate 2022-08-15 91 /min [facility] 04:00:00 [facility] Respiratory rate 2022-08-15 24 /min [facility] 04:00:00 [facility] Oxygen saturation 2022-08-15 95 /min [facility] Arterial blood 04:00:00 [facility] by Pulse oximetry [place] Body temperature 2022-08-15 35.94 Cecily [facility] 02:49:00 [facility] Body height 2022-08-15 160 cm [facility] 02:49:00 [facility] Body weight 2022-08-15 68.04 kg [facility] 02:49:00 [facility] BMI 2022-08-15 26.57 kg/m2 [facility] 02:49:00 [facility] HEIGHT 2021-05-05 165.1 cm 20:18:00 WEIGHT 2021-05-05 68.04 kg 20:18:00 HEIGHT 2021-05-05 165.1 cm 20:18:00 WEIGHT 2021-05-05 68.04 kg 20:18:00 Systolic blood 2021-04-25 120 mm[Hg] [facility] pressure 16:25:00 Diastolic blood 2021-04-25 77 mm[Hg] [facility] pressure 16:25:00 Heart rate 2021-04-25 72 /min [facility] 16:25:00 Body height 2021-04-25 167.6 cm [facility] 16:25:00 Body weight 2021-04-25 78.926 kg [facility] 16:25:00 BMI 2021-04-25 28.08 kg/m2 [facility] 16:25:00 HEIGHT 2020-02-04 161 cm 00:00:00 WEIGHT 2020-02-04 68.04 kg 00:00:00 HEIGHT 2020-02-04 161 cm 00:00:00 WEIGHT 2020-02-04 68.04 kg 00:00:00 Systolic blood 2021-06-29 147 mm[Hg] [facility] pressure 16:16:09 Hospital Diastolic blood 2021-06-29 67 mm[Hg] [facility] pressure 16:16:09 Hospital Heart rate 2021-06-29 94 /min [facility] 16:16:09 [facility] Body temperature 2021-06-29 36.89 Cecily [facility] 16:16:09 Hospital Oxygen saturation 2021-06-29 94 /min [facility] in Arterial blood 16:16:09 Hospital by Pulse oximetry Systolic blood 2021-05-06 124 mm[Hg] [facility] pressure 01:23:00 [facility] Diastolic blood 2021-05-06 68 mm[Hg] [facility] pressure 01:23:00 [facility] Heart rate 2021-05-06 84 /min [facility] 01:23:00 [facility] Body temperature 2021-05-[address] [facility] 01:23:00 [facility] Respiratory rate 2021-05-06 18 /min [facility] 01:23:00 [facility] Oxygen saturation 2021-05-05 99 /min [facility] Arterial blood 23:45:00 [facility] by Pulse oximetry Body height 2021-05-[address] [facility] 20:18:00 [facility] Body weight 2021-05-[address] [facility] 20:18:00 [facility] BMI 2021-05-05 24.96 kg/m2 [facility] 20:18:00 [facility] Systolic blood 2020-12-16 120 mm[Hg] [facility] 11:22:00 Position: Sitting Diastolic blood 2020-12-16 77 mm[Hg] [facility] 11:22:00 Position: Sitting Body height 2020-12-16 63 [in_us] [facility] 11:22:00 Weight 2020-12-16 165 [lb_av] [facility] 11:22:00 Body mass index 2020-12-16 29.23 kg/m2 [facility] (BMI) [Ratio] 11:22:00 Heart Rate 2020-12-16 90 /min [facility] 11:22:00 Heart rate 2020-12-06 78 /min [facility] 15:01:00 Hospital Respiratory rate 2020-12-06 16 /min [facility] 15:01:00 Hospital Oxygen saturation 2020-12-06 97 /min [facility] in Arterial blood 15:01:00 Hospital by Pulse oximetry Systolic blood 2020-12-06 124 mm[Hg] [facility] pressure 13:03:19 Hospital Diastolic blood 2020-12-06 65 mm[Hg] [facility] pressure 13:03:19 Hospital Body temperature 2020-12-06 36.39 Cecily [facility] 13:03:19 Hospital Body height 2020-12-03 165.1 cm [facility] 21:48:00 Hospital Body weight 2020-12-03 63.504 kg [facility] 21:48:00 Hospital BMI 2020-12-03 23.30 kg/m2 [facility] 21:48:00 Hospital Systolic blood 2020-12-02 112 mm[Hg] Location: [facility] Physicia ns pressure 12:05:00 Position: Sitting Diastolic blood 2020-12-02 68 mm[Hg] Location: [facility] Physici ans pressure 12:05:00 Position: Sitting Body height 2020-12-02 63 [in_us] [facility] 12:05:00 Weight 2020-12-02 168 [lb_av] [facility] 12:05:00 Body mass index 2020-12-02 29.76 kg/m2 [facility] (BMI) [Ratio] 12:05:00 Heart Rate 2020-12-02 72 /min [facility] 12:05:00 Systolic (mm Hg) 2016-02-13 [facility] rmann 11:30:00 Diastolic (mm Hg) 2016-02-13 [facility] ermann 11:30:00 Heart Rate 2016-02-13 [facility] Jordy n 11:30:00 Respitory Rate 2016-02-13 [facility] [...] Jordy n 07:11:00 Diastolic (mm Hg) 2014-08-24 Jhonny Reyes ermann 22:03:00 Temperature Oral 2014-08-24 98.0 F Jhonny Gonsales rmann (F) 22:03:00 Respitory Rate 2014-08-24 [facility] 22:03[facility]00 Systolic (mm Hg) 2014-08-24 Jhonny Gonsales rmann 22:03:00 Heart Rate 2014-08-24 [facility] 22:03:00 Systolic (mm Hg) 2014-08-24 [facility] 17:24:00 Respitory Rate 2014-08-24 [facility] 17:24:00 Diastolic (mm Hg) 2014-08-24 Jhonny Reyes ermann 17:24:00 Heart Rate 2014-08-24 Jhon[facility] Jordy n 17:24:00 Temperature Oral 2014-08-24 98.2 F Jhonny Gonsales rmann (F) 17:24:00 Height 2014-08-24 160.02 cm [facility] 17:24:00 BMI Calculated 2014-08-24 [facility] 17:24:00 Weight 2014-08-24 [facility] 17:24:00 Procedures Procedure Date / Time Performing Clinician Source Performed EKG-12 LEAD 2022-08-15 04:15:29 Halima Vargas [facility] TEST, SERUM 2022-08-15 03:12:00 [facility] TROPONIN I 2022-08-15 03:12:00 Halima Vargas [facility] COMP. METABOLIC PANEL 2022-08-15 03:12:00 [facility] ([id number]) [facility] CBC WITH DIFF 2022-08-15 03:12:00 Halima Vargas [facility] XR KNEE 1 OR 2 VW RIGHT 2021-06-29 16:46:14 Ty, [facility] [place] [facility] SPINE CERVICAL WITHOUT 2021-05-05 22:50:00 Ryanne Hurtado [facility] IV CONTRAST [facility] CT BRAIN WITHOUT IV 2021-05-05 22:38:00 Ryanne Hurtado [facility] ED ECG INTERPRETATION 2021-05-05 20:57:00 [facility]ne [facility]urtado [facility] LEVETIRACETAM LEVEL 2021-05-05 20:34:00 Maverick Hurtado[facility] CBC W/PLT COUNT & AUTO 2021-05-05 20:34:00 [facility] COMPREHENSIVE METABOLIC 2021-05-05 20:34:00 [facility]EL [facility] TROPONIN I 2021-05-05 20:34:00 [facility] W[facility] & AUTO 2021-05-05 20:34:00 [facility] DI[facility] REPORT OF PROCEDURE - 2021-05-05 00:00:00 Provider, [facility] ENDOSCOPY SCAN Scanning Center [L] BMP8+eGFR 2020-12-16 00:00:00 [facility] [QL] CBC (INCLUDES 2020-12-16 00:00:00 [facility] DIFF/PLT) [QL] LIPID PANEL 2020-12-16 00:00:00 [facility] [QL] TSH, 3RD GENERATION 2020-12-16 00:00:00 [facility] W/REFLEX TO FT4 [QL] HEMOGLOBIN A1c 2020-12-16 00:00:00 [facility] POC GLUCOSE 2020-12-06 05:18:00 Obdulio Ragland [facility]ital UNMONITORED VIDEO-EEG 12 2020-12-05 19:27:44 Britni Arredondo [facility] HRS [id number] Lee EEG SETUP 2020-12-05 09:23:13 Maria Elena [facility] EEG (ROUTINE) 2020-12-04 16:25:57 Maria Elena [facility] POC GLUCOSE 2020-12-04 05:03:00 [facility]dulio [facility] URINE DRUGS OF ABUSE 2020-12-04 04:55:00 Billie Stevenson [facility] SCREEN CT HEAD WO CONTRAST 2020-12-04 02:48:09 Bharat Kevin [facility] (LEVETIRACETAM) 2020-12-04 01:43:00 [facility] ALCOHOL LEVEL, BLOOD 2020-12-04 01:43:00 [facility] TROPONIN 2020-12-04 01:43:00 Dorita Bharatthanh [facility] XR CHEST 1 VW PORTABLE 2020-12-03 23:52:00 [facility]AL[facility]ATIVE 2020-12-03 22:41:00 [facility] RT-PCR [facility] ME CRITICAL CARE, E/M 2020-12-03 21:55:13 [facility] 30-74 MINUTES [facility] ECG ED PRELIMINARY 2020-12-03 21:55:13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 9876161956) CALCIUM (test code = 8.7 mg/dL 8.6-10.6 9535542116) T PROTEIN (test code 6.7 g/dL 6.3-8.2 = 3491838865) ALBUMIN (test code = 3.9 g/dL 3.5-5.0 3667186342) ALK PHOS (test code = 69 U/L 34-122 9931682755) ALTv (test code = 35 U/L 5-35 1742-6) AST(SGOT) (test code 27 U/L 13-40 = 4459434745) eGFR (test code = mL/min/1.73m2 4626303635) CIRO (test code = CIRO) Association of [...] or urine or abnormalities in imaging tests). [facility] WITH [id number] 03:25:05 Test Item Value Reference Range Interpretation Comments WBC (test code = See_Comment [Automated 7090-2) message] The sy stem which generated this [...] RDW-SD (test code = 41.3 fL 39.0-49.9 80294-4) RDW-CV (test code = 12.5 % 12.0-15.5 788-0) PLT (test code = See_Comment H [Automated 777-3) message] The sy stem which generated this result transmitted reference range : 166 - 358 10*3/ ?L. The reference r ozzy was not used to interpret this result as normal/abnormal . MPV (test code = 9.4 fL 9.5-12.9 L 03029-3) NRBC/100 WBC (test See_Comment [Automat ed code = 2140396620) message] The system which generated this result transmitted reference range : 0.0 - 10.0 /100 WBCs. The refer ence range was not u sed to interpret th is result as normal/abnormal . NRBC x10^3 (test code See_Comment [Auto mated = 7012167719) message] The s ystem which generated this result transmitted reference range : 10*3/?L. The reference range was not used to interpret this result as normal/abnormal . GRAN MAT (NEUT) % 55.2 % (test code = 770-8) IMM GRAN % (test code 0.50 % = 0605292523) LYMPH % (test code = 30.7 % 736-9) MONO % (test code = 6.4 % 5905-5) EOS % (test code = 6.2 % 713-8) BASO % (test code = 1.0 % 706-2) GRAN MAT x10^3(ANC) 5.54 10*3/uL 1.88-7.09 (test code = 0511013037) IMM GRAN x10^3 (test 0.05 10*3/uL 0.00-0.06 code = 5909024008) LYMPH x10^3 (test code 3.08 10*3/uL 1.32-3.29 = 731-0) MONO x10^3 (test code 0.64 10*3/uL 0.33-0.92 = 742-7) EOS x10^3 (test code = 0.62 10*3/uL 0.03-0.39 H 711-2) BASO x10^3 (test code 0.10 10*3/uL 0.01-0.07 H = 704-7) Lab Interpretation Abnormal (test code = 11956-5) [facility] [id number] 14:27:33 Test Item Value Reference Interpretation Comments Range Levetiracetam (test <2.0 mcg/mL L Referen ce Range: code = 4521939) 12.0-46.0 To xic level is not we ll established. Interpretation should include a clinical evalua tion. For additional information, pl ease refer tohttp://educat ion.VisualXcript .Revivio/ faq/YAN919(This link is being provid ed forinformationa l/edu cational purpos es only.) This jose t was developed and i ts analytical performance characteristics have been determined by [employer]. It has not been cleared or appr christiano by theFDA. This assay has been validated pursu ant to the CLIA regulations and is used for clinic al purposes. CIRO (test code = Performing Lab CIRO) *GAGANDEEP [employer] [facility], [address] [place] [phone] Parminder Szymanski MD Lab Interpretation Abnormal (test code = 49509-8) [facility] Services[facility]etir[facility] [id number] 14:27:33 Test Item Value Reference Interpretation Comments Range Levetiracetam (test <2.0 mcg/mL L Referen ce Range: code = 4441601) 12.0-46.0 To xic level is not we ll established. Interpretation should include a clinical evalua tion. For additional information, pl ease refer tohttp://educat ion.Govtoday/ faq/ZSU623(This link is being provid ed forinformationa l/edu cational purpos es only.) This jose t was developed and i ts analytical performance characteristics have been determined by [employer]. It has not been cleared or appr christiano by theFDA. This assay has been validated pursu ant to the CLIA regulations and is used for clinic al purposes. CIRO (test code = Performing Lab CIRO) *GAGANDEEP [employer] [facility], [address] [place] [phone] Parminder Szymanski MD Lab Interpretation Abnormal (test code = 24901-7) [facility] ServicesCT, BRAIN, WITHOUT [id number] 23:05:00 Unlisted Reason for Exam - Click Yes and Enter Reason Below->No [facility] 1975 Sex: FFINAL [...] Date/Time: 05/05/2021 23:05:29 CT, SPINE, CERVICAL, WO [id number] 23:05:00Unlisted Reason for Exam - Click Yes and Enter Reason Below->No [facility] 1975 Sex: FFINAL [...] recommended for further characterization. Signed: Aneudy Asencio [facility] Verified Date/Time: 05/05/2021 23:05:29 [facility] [id number] 21:22:45 Test Item Value Reference Range Interpretation Comments Troponin I (test code = <0.03 0.00-0.15 66331-3) CIRO (test code = CIRO) Troponin I [...] THELMA Lab Interpretation (test Normal code = 51251-9) [facility] ServicesTrop[facility] [id number] 21:22:45 Test Item Value Reference Range Interpretation Comments Troponin I (test code = <0.03 0.00-0.15 10652-4) CIRO (test code = CIRO) Troponin I [...] THELMA Lab Interpretation (test Normal code = 23483-4) [facility] ServicesTROPONIN [id number] 21:22:45 Test Item Value Reference Range Interpretation [...] failure, acidosis, acute neurological disease, and persistent tachyarrhythmia.Bender Hand ID - JUSTINComprehensive metabolic [id number] 21:20:36 Test Item Value Reference Interpretation Comments Range Protein, Total (test 7.5 See_Comment Specime n code = 2885-2) slightly hemolyzed [Automated message] The system which generated this result transmitted reference range : 6.0 - 8.5 gm/dL . The reference range was not used to interpret this result as normal/abnormal . Albumin (test code = 4.1 g/dL 3.5-5.0 [place] [address]-1) slightly hemolyzed Alkaline Phosphatase 72 U/L 30-115 (test code = 6768-6) Total Bilirubin 1.0 mg/dL 0.1-1.2 Specimen (test code = 1975-2) slightl y hemolyzed Sodium (test code = 141 meq/L 756-848 5566-2) Potassium (test code 3.8 meq/L 3.6-5.5 Specime n = 2823-3) slightly hemolyzed Chloride (test code 104 meq/L 98-106 = 2075-0) CO2 (test code = 24 meq/L -2027-) BUN (test code = 7 mg/dL 10-26 L 3094-0) Creatinine (test 0.81 mg/dL 0.50-1.20 Specimen code = 2160-0) slightly hemolyzed Glucose (test code = 92 mg/dL 70-110 2345-7) Calcium (test code = 9.4 mg/dL 8.5-10.5 43568-9) AST (test code = 21 U/L 5-40 Specimen 1920-8) slightly hemolyzed ALT (test code = 27 U/L 5-50 Specimen 1742-6) slightly hemolyzed EGFR (test code = 76 mL/min/1[place]73 [place] [address]-9) m NOT ACCURATE CREATININE CLEARANCE IN PREDICTING GLOMERULAR FILTRATION RATE . ESTIMATED GFR I S NOT APPLICABLE FOR DIALYSIS PATIENTS. CIRO (test code = Bender Hand ID - CIRO) JUSTINOperator ID - JUSTINOperator [...] THELMA Lab Interpretation Abnormal (test code = 34985-8) [facility] ServicesCom[facility] metabolic [id number] 21:20:36 Test Item Value Reference Interpretation Comments Range Protein, Total (test 7.5 See_Comment Specime n code = 2885-2) slightly hemolyzed [Automated message] The system which generated this result transmitted reference range : 6.0 - 8.5 gm/dL . The reference range was not used to interpret this result as normal/abnormal . Albumin (test code = 4.1 g/dL 3.5-5.0 [place] [address]-9) slightly hemolyzed Alkaline Phosphatase 72 U/L 30-115 (test code = 6768-6) Total Bilirubin 1.0 mg/dL 0.1-1.2 Specimen (test code = 1974-2) slightl y hemolyzed Sodium (test code = 141 meq/L 214-787 8629-2) Potassium (test code 3.8 meq/L 3.6-5.5 Specime n = 2823-3) slightly hemolyzed Chloride (test code 104 meq/L 98-106 = 2075-0) CO2 (test code = 24 meq/L 20-29 8-9) BUN (test code = 7 mg/dL 10-26 L 3094-0) Creatinine (test 0.81 mg/dL 0.50-1.20 Specimen code = 2160-0) slightly hemolyzed Glucose (test code = 92 mg/dL 70-110 2345-7) Calcium (test code = 9.4 mg/dL 8.5-10.5 97000-7) AST (test code = 21 U/L 5-40 Specimen 1920-8) slightly hemolyzed ALT (test code = 27 U/L 5-50 Specimen 1742-6) slightly hemolyzed EGFR (test code = 76 mL/min/1.73 [place] [address]-7) m NOT ACCURATE CREATININE CLEARANCE IN PREDICTING GLOMERULAR FILTRATION RATE . ESTIMATED GFR I S NOT APPLICABLE FOR DIALYSIS PATIENTS. CIRO (test code = Bender Hand ID - CIRO) JUSTINOperator ID - JUSTINOperator [...] THELMA Lab Interpretation Abnormal (test code = 83237-0) [facility] ServicesCOMPREHENSIVE METABOLIC [id number] 21:20:36 Test Item Value Reference Range Interpretation [...] S NOT APPLICABLE FOR DIALYSIS PATIEN TS. Bender Hand ID - JUSTINOperator ID - JUSTINOperator ID - JUSTINOperator ID - JUSTINOperator ID - JUSTINOperator ID - JUSTINOperator ID - JUSTINOperator ID - JUSTINOperator ID - JUSTINOperator ID - JUSTINOperator ID - JUSTINOperator ID - JUSTINOperator ID - JUSTINOperator ID - JUSTINOperator ID - JUSTINOperator ID - JUSTINOperator ID - JUSTINOperator ID - JUSTINOperator ID - JUSTINCBC with platelet count + automated [id number] 20:51:36 Test Item Value Reference Range Interpretation Comments WBC (test code = 6690-2) 12.0 See_Comment H [A utomated message] The system [employer] generated this result transmitted ref erence range: 4.0 - 10 .0 K/L. The refe rence range was not u sed to interpret this result as normal/abnor mal. RBC (test code = 789-8) 4.84 See_Comment [Au tomated message] The system [employer] generated this result transmitted ref erence range: 4.00 - 5 .00 M/L. The refe rence range was not u sed to interpret this result as normal/abnor mal. MCHC (test code = 786-4) 34.8 See_Comment [A utomated message] The system [employer] generated this result transmitted ref erence range: [...] H [Aut omated message] 777-3) The system [employer] generated this result transmitted ref erence range: 150 - 43 0 K/CU MM. The referen ce range was not u sed to interpret this result as normal/abnor mal. MPV (test code = 9.7 fL 6.0-11.5 11135-8) nRBC (test code = 413) 0 See_Comment [Aut omated message] The system [employer] generated this result transmitted ref erence range: [...] See_Comment [Aut omated message] 670) The system [employer] generated this result transmitted ref erence range: 1.80 - 8 .00 K/L. The refe rence range was not u sed to interpret this result as normal/abnor mal. # Lymphs (test code = 3.61 See_Comment [Auto mated message] 414) The system [employer] generated this result transmitted ref erence range: 1.48 - 4 .50 K/L. The refe rence range was not u sed to interpret this result as normal/abnor mal. # Monos (test code = 0.86 See_Comment [Autom ated message] 415) The system [employer] generated this result transmitted ref erence range: 0.00 - 1 .30 K/L. The refe rence range was not u sed to interpret this result as normal/abnor mal. # Eos (test code = 416) 0.41 See_Comment [Au tomated message] The system [employer] generated this result transmitted ref erence range: 0.00 - 0 .50 K/L. The refe rence range was not u sed to interpret this result as normal/abnor mal. # Baso (test code = 417) 0.10 See_Comment [A utomated message] The system [employer] generated this result transmitted ref erence range: 0.00 - 0 .20 K/L. The refe rence range was not u sed to interpret this result as normal/abnor mal. Immature 0 % 0-0 Granulocytes-Relative (test code = 2801) Lab Interpretation (test Abnormal code = 84043-1) [facility] with platelet count + automated [id number] 20:51:36 Test Item Value Reference Range Interpretation Comments WBC (test code = 6690-2) 12.0 See_Comment H [A utomated message] The system [employer] generated this result transmitted ref erence range: 4.0 - 10 .0 K/L. The refe rence range was not u sed to interpret this result as normal/abnor mal. RBC (test code = 789-8) 4.84 See_Comment [Au tomated message] The system [employer] generated this result transmitted ref erence range: 4.00 - 5 .00 M/L. The refe rence range was not u sed to interpret this result as normal/abnor mal. MCHC (test code = 786-4) 34.8 See_Comment [A utomated message] The system [employer] generated this result transmitted ref erence range: [...] H [Aut omated message] 777-3) The system [employer] generated this result transmitted ref erence range: 150 - 43 0 K/CU MM. The referen ce range was not u sed to interpret this result as normal/abnor mal. MPV (test code = 9.7 fL 6.0-11.5 54046-3) nRBC (test code = 413) 0 See_Comment [Aut omated message] The system [employer] generated this result transmitted ref erence range: [...] See_Comment [Aut omated message] 670) The system [employer] generated this result transmitted ref erence range: 1.80 - 8 .00 K/L. The refe rence range was not u sed to interpret this result as normal/abnor mal. # Lymphs (test code = 3.61 See_Comment [Auto mated message] 414) The system [employer] generated this result transmitted ref erence range: 1.48 - 4 .50 K/L. The refe rence range was not u sed to interpret this result as normal/abnor mal. # Monos (test code = 0.86 See_Comment [Autom ated message] 415) The system [employer] generated this result transmitted ref erence range: 0.00 - 1 .30 K/L. The refe rence range was not u sed to interpret this result as normal/abnor mal. # Eos (test code = 416) 0.41 See_Comment [Au tomated message] The system [employer] generated this result transmitted ref erence range: 0.00 - 0 .50 K/L. The refe rence range was not u sed to interpret this result as normal/abnor mal. # Baso (test code = 417) 0.10 See_Comment [A utomated message] The system [employer] generated this result transmitted ref erence range: 0.00 - 0 .20 K/L. The refe rence range was not u sed to interpret this result as normal/abnor mal. Immature 0 % 0-0 Granulocytes-Relative (test code = 2801) Lab Interpretation (test Abnormal code = 61066-3) [facility] W/PLT COUNT & AUTO [id number] 20:51:36 Test Item Value Reference Range Interpretation [...] (BEAKER) (test code = 2801) Continuous EEG pdtdgvfimv3377-05-81 01:51:44CONTINUOUS VIDEO-EEG MONITORING REPORT - END OF STUDY Patient Name: Shanna BillsRN#: [id number] Date of : 1975 Initial Study Start [...] seizures captured. Onelia Hair MD ICD-10 Code: Y355Msdnsbnwkc EEG owcmbbtpoq4605-27-84 12:59:42 CONTINUOUS VIDEO-EEG MONITORING REPORT [id number] Date of : 1975 Initial Study Start [...] seizures captured. Onelia Hair MD ICD-10 Code: T166XQM 12 [id number] 05:31:10 Test Item Value Reference Range Interpretation [...] 04:27,-Vent. rate has increased BY 62 BPM- [facility] 12 [id number] 05:31:10 Test Item Value Reference Range Interpretation [...] 04:27,-Vent. rate has increased BY 62 BPM- [facility] 12 [id number] 05:31:10 Test Item Value Reference Range Interpretation [...] 04:27,-Vent. rate has increased BY 62 BPM- [facility] (routine) - Baseline [id number] 01:47:11VIDEO-EEG RECORDING AWAKE & ASLEEP - Baseline [...] Hair MD ICD-10 Code: R569CT Head Wo Pdcsaatu7426-55-43 02:53:14EXAMINATION: CT HEAD WO CONTRAST CLINICAL HISTORY: [...] No CT evidence of acute intracranial abnormality. [facility]-[id number] Interface, Radiology Results [facility] - 12/03/2020 9:56 PM CDT EXAMINATION: CT [...] IMPRESSION:1. No CT evidence of acute intracranial abnormality.[id number] [facility]orationistAtlantic Rehabilitation InstituteBvqybgrsCYOZ-RsZ-8 (COVID-19) RNA [Presence] in Respiratory specimen by SOREN with probe [id number] 02:03:42 Test Item Value Reference Range Interpretation Comments SARS-CoV-2 (COVID-19) RNA Not detected Not-Detected [Presence] in Respiratory specimen by SOREN with probe detection (test code = 02181-0) Whether patient is employed in a healthcare setting (test code = 72568-6) Whether the patient has symptoms related to condition of interest (test code = 92926-8) Patient was hospitalized because of this condition (test code = 43137-9) Whether the patient was admitted to intensive care unit (ICU) for condition of interest (test code = 18153-1) Whether patient resides in a congregate care setting (test code = 07926-9) TANNA CARBONE MORAXR Chest 1 Vw Omyqkdyz1650-43-92 23:58:22EXAMINATION: XR CHEST 1 VW PORTABLE CLINICAL [...] no consolidation or effusion.3.The bones are intact.1D2RAD_P Q02Swhhhzfwj HospitalCRITICAL [id number] 21:55:13Bladimir Brumfield MD 12/04/2020 3:12 PMCritical CarePerformed by: Bladimir Brumfield MDAuthorized by: Bladimir Cisse MD Critical care provider statement: Critical care time (minutes): 35 Critical caretime was exclusive of: Separately billable procedures and treating other patients Critical care was necessary to treat or prevent imminent or life-threatening deterioration of the following conditions:RN EMERGENCY ROOM failure or compromise Critical care was time [...] care for this patient from another provider.: [facility] ED Preliminary Interpretation - Not an [id number] 21:55:13 Bladimir Brumfield MD 12/04/2020 3:12 [facility] Preliminary Interpretation - Not an OrderPerformed by: Bladimir Brumfield MDAuthorized by: Bladimir Brumfield MD ECG reviewed by ED Physician in the absence of a casino floor walker: yes Rate: ECG rate: 119Rhythm: Rhythm: sinus tachycardia Ectopy: Ectopy: none QRS: QRS axis: Normal QRS intervals: NormalConduction: Conduction: normal ST segments: ST segments: NormalT waves: T waves: normalUrine [id number] 01:10:19 Test Item Value Reference Range Interpretation Comments Urine culture (test SEE COMMENT Bacteriu mario screen code = 7633394) negative. [facility] vrkbngm8710-77-38 01:10:19 Test Item Value Reference Range Interpretation Comments Urine culture (test SEE COMMENT Bacteriu mario screen code = 2922561) negative. [facility] [id number] 01:10:19 Test Item Value Reference Range Interpretation Comments Urine culture (test SEE COMMENT Bacteriu mario screen code = 6440574) negative. [facility][U] XRAY HAND MIN 3 VWS RIGHT [id number] 15:17:00Images acquired, not reported on this accession number.[facility] PhysiciansXR Hand 3+ Vw Right 2020-11-03 04:37:16EXAMINATION: XR HAND 3 VW RIGHT INDICATION: dog bite COMPARISON: None IMPRESSION: 3 views of the right hand were obtained.No visible acute fracture or dislocation.No visible radiodense foreign material. [facility]ITALYMATHm Interface, Radiology Results Incoming - 11/02/2020 11:40 PM CDT EXAMINATION: XR HAND 3 VW RIGHTINDICATION: dog biteCOMPARISON: NoneIMPRESSION:3 views of the right hand were obtained.No visible acute fracture or dislocation.No visible radiodense foreign material.[facility]-MPHYMATMethtoni [facility] (routine) 2020-09-17 16:59:35Date of Study [...] movements noted on this tracing by the mechanical facilities technician did not have an epileptic correlate. [...] in Respiratory specimen by SOREN with probe [id number] 00:31:49 Test Item Value Reference Range Interpretation Comments SARS-CoV-2 (COVID-19) RNA Not detected Not-Detected [Presence] in Respiratory specimen by SOREN with probe detection (test code = 65616-7) [facility] (routine)2020-09-11 [...] in Respiratory specimen by SOREN with probe gjysympcm2559-87-40 07:15:55 Test Item Value Reference Range Interpretation Comments SARS-CoV-2 (COVID-19) RNA Not detected Not-Detected [Presence] in Respiratory specimen by SOREN with probe detection (test code = 96306-9) [facility] Pel[facility] Wo Wfbnawzs6093-17-66 05:45:01EXAMINATION: CT ABDOMEN PELVIS WO CONTRAST HISTORY: [...] high grade enterocolitis. No bowel obstruction.1D2RA D_PS02[facility] NeskfwxaRGGU-YoI-4 (COVID-19) RNA [Presence] in Respiratory specimen by SOREN with probe fcylpqill6683-25-68 05:23:42 Test Item Value Reference Range Interpretation Comments SARS-CoV-2 (COVID-19) RNA Not detected Not-Detected [Presence] in Respiratory specimen by SOREN with probe detection (test code = 96490-0) [facility]ITALTransthoracic Echocardiogram Complete, (w Contrast, Strain and 3D if needed)2020-05-11 04:52:19 Test Item Value Reference Range Interpretation Comments Velocity Ratio (V1/V2) 0.85 m/s (test code = 4689) IVS,d (test code = 1.00 cm 4395306257) EF (test code = 52.31 % 9601570140) Ascending aorta (test 2.67 cm code = 4405040213) LVPWD,d (test code = 1.00 cm 6848182217) AoV Mean PG (test code mmHg = 9926625107) AV LVOT peak gradient mmHg (test code = 8501420926) MV mean gradient (test mmHg code = 2615451127) MV valve area p 1/2 3.31 cm2 method (test code = 1917384339) PV Pk Grad (test code = mmHg 2614288050) E/A ratio (test code = 9775395309) E wave decelartion time msec (test code = 0658620726) LVOT Diam,S (test code 1.98 cm = 9473241775) LVOT area (test code = 3.08 cm2 4908699742) LVOT Vmax (test code = 0.96 m/s 1044886851) LVOT VTI (test code = 0.21 m 0975253775) RVOT Vmax (test code = 0.58 m/s 3100029126) AoV Peak PG (test code mmHg = 6762087435) MV Peak E Giuliano (test 0.94 m/s code = 2475590007) MV stenosis pressure 66.39 ms 1/2 time (test code = 3539239601) MV Peak A Giuliano (test 0.74 m/s code = 7204357045) Ao Root Diameter (test 2.99 cm code = 3456762923) AoV Area, Vmax (test 2.60 cm2 code = 6686164318) AoV Area, VTI (test 2.95 cm2 code = 7213841567) AoV Vmax (test code = 1.13 m/s 9389267112) IVS/LVPW,2D (test code = 8282121165) Left Atrium Dimension 3.10 cm Anterior (test code = 5648425014) LV,d (test code = 4.15 cm 7722680052) LV,s (test code = 3.05 cm 0286002338) PV VMAX (test code = 0.78 m/s 0625145300) TR Vpeak (test code = 1.85 mm/s 8225908335) MV E A ratio (test code = 5427904194) TR pk grad (test code = mmHg 0786954157) MR peak grad (test code mmHg = 4177029674) Ao Root Diameter (test 2.99 cm code = 7291928643) LV SYS VOL (test code = 36.41 ml 5910036439) LV RIOS VOL (test code 76.34 ml = 8632768469) LV SV Teich 2D (test 39.93 ml code = 5152387807) LV Vol s Teich PSAX 36.41 ml (test code = 1043443953) MV Vmax (test code = 0.89 m 6595769545) MV VTI Tips (test code 0.22 m = 4992405758) RVOT pk grad (test code mmHg = 2744756388) AoV Vmn (test code = 6008739110) LV FS Cube 2D (test code = 5283750297) LV FS Teich 2D (test code = 8139754943) AoV VTI (test code = 0.22 m 8434210753) LA Area d A4C (test 12.41 cm2 code = 7561933617) LV EF,2D (test code = 60.32 % 1007889873) MR Vmax (test code = 4.15 m/s 2658010595) MV AE ratio (test code = 4456440399) LVOT Vmn (test code = 2762630302) Aov area Vmn (test code 2.47 cm2 = 7697735309) LA Vol d MOD A4C (test 27.63 ml code = 4331417669) LVOT mean grad (test mmHg code = 0103546043) MAX Pred HR (test code = 0993800146) 85 of MPHR (test code = 0443110680) Calc MPHR (test code = bpm 0884742304) LV SV Cube 2D (test 43.08 ml code = 7180502018) LV vol d cube 2D (test 71.42 ml code = 5562220976) LV vol s cube 2D (test 28.34 ml code = 0580564051) MV Decel slope (test 4.12 m/s2 code = 7843535849) Pred Exer Dur R1 (test code = 9457405933) Pred METS R1 (test code = 4441632251) CIRO (test code = CIRO) Left Ventricle: [...] regurgitation. No evidence of aortic valve stenosis. [facility] duplex venous upper zpiveijou9421-01-32 06:14:50 EXAMINATION: US DUPLEX VENOUS UPPER EXTREMITY [...] visualized veins of the right upper extremity. [facility]- [id number] [facility], Radiology Results 05/08/2020 1:17 AM CDT EXAMINATION: [...] the visualized veins of the right upper extremity.[facility]-[id number] HospitalEE (routine)2020-05-07 22:01:23Date of Service: May 07, [...] a diagnosis of epilepsy.MRI Brain W Wo Lbfxjqfu8622-72-89 03:27:20EXAMINATION: MRI BRAIN W WO CONTRAST CLINICAL [...] or suspicious pericallosal lesions with a perivenular morphology.1M2RAD_PS01[facility] HospitalARS-[facility]-2 (COVID-19) RNA [Presence] in Respiratory specimen by SOREN with probe ccdklejml6502-75-66 12:31:16 Test Item Value Reference Range Interpretation Comments SARS-CoV-2 (COVID-19) RNA Not detected Not-Detected [Presence] in Respiratory specimen by SOREN with probe detection (test code = 02892-2) [facility]OV2/[facility]-PCR ([facility]) 2020-02-22 21:37:00 Test Item Value Reference Range Interpretation Comments SARS-COV2/RT-PCR (test code = Positive Not Detected, Negative A A 4187759) SARS-COV-2 PERFORMING LAB CPL (test code = 5792739) CT, CHEST, WITHOUT [id number] 00:54:00Reason for exam:->cough, ?covidIs the patient ?->NoWhat [...] MDReport Verified Date/Time: 02/21/2020 00:54:38 PREGNANCY SCREEN, [id number] 00:28:00 Test Item Value Reference Range Interpretation Comments TEST URINE (BEAKER) (test Negative code = 583) CBC W/PLT COUNT & AUTO [id number] 22:46:00 Test Item Value Reference Range Interpretation [...] (BEAKER) (test code = 2801) LACTIC ACID, [id number] 22:30:00 Test Item Value Reference Range Interpretation Comments LACTATE BLOOD VENOUS 1.38 mmol/L 0.50-2.00 Specime n slightly (2) (BEAKER) (test hemolyzed code = 1072) Bender Hand ID - JUSTINBASIC METABOLIC [id number] 22:10:00 Test Item Value Reference Range Interpretation [...] S NOT APPLICABLE FOR DIALYSIS PATIEN TS. Bender Hand ID - [id number] [id number] 22:09:00 Test Item Value Reference Range Interpretation [...] failure, acidosis, acute neurological disease, and persistent tachyarrhythmia.Bender Hand ID - lvlv65ADN, CHEST, 1 VIEW, NON [id number] 20:58:00Reason for exam:->coughIs the patient ?- >NoShould [...] Asencio MDReport Verified Date/Time: 02/20/2020 20:58:56 SARS-COV2/RT-PCR ([facility])2020-02-06 03:25:00 Test Item Value Reference Range Interpretation Comments SARS-COV2/RT-PCR (test code = Positive Not Detected, Negative A A 8670887) SARS-COV-2 PERFORMING LAB CPL (test code = 4515231) URINALYSIS W/ [id number] 08:24:00 Test Item Value Reference Range Interpretation [...] 1663) SOURCE(BEAKER) (test code = 2795) SCREEN, [id number] 08:00:00 Test Item Value Reference Range Interpretation Comments TEST URINE (BEAKER) (test Negative code = 583) RAD, ABDOMEN/KUB 1 VIEW [id number] 07:21:00Reason for exam:->FEVERReason for exam:->DIARRHEAReason for exam:->EMESISFINAL REPORT RAD, ABDOMEN/KUB 1 VIEW AP CLINICAL INDICATION: FEVERDIARRHEAEMESIS COMPARISON: None TECHNIQUE: Single, frontal radiograph of the abdomen. FINDINGS: The bowel gas pattern is nonspecific, but nonobstructive. IUD is present. The regional skeleton is intact. IMPRESSION: Nonspecific, nonobstructive bowel gas pattern. Signed: Ling Jin MDRsaint mary's hospital Verified Date/Time: 02/04/2020 07:21:42 Reading Location: [facility] Radiology Reading Room COMPREHENSIVE METABOLIC [id number] 07:14:00 Test Item Value Reference Range Interpretation [...] S NOT APPLICABLE FOR DIALYSIS PATIEN TS. Bender Hand ID - [id number] 06:59:00 Test Item Value Reference Range Interpretation Comments LIPASE (BEAKER) (test code = 749) 9 U/L 6-51 Bender Hand ID - AGONZALEZCBC W/PLT COUNT & AUTO [id number] 06:41:00 Test Item Value Reference Range Interpretation [...] (test code = 2801) RAPID INFLUENZA A&B [id number] 19:09:00 Test Item Value Reference Range Interpretation Comments RAPID INFLUENZA A AG (BEAKER) Negative Negative, Inconclusive (test code = 1622) RAPID INFLUENZA B AG (BEAKER) Negative Negative, Inconclusive (test code = 1623) TROPONIN [id number] 18:51:00 Test Item Value Reference Range Interpretation [...] failure, acidosis, acute neurological disease, and persistent tachyarrhythmia.Bender Hand ID - JUSTINPREGNANCY SCREEN, [id number] 18:49:00 Test Item Value Reference Range Interpretation Comments TEST URINE (BEAKER) (test Negative code = 583) URINALYSIS W/ [id number] 18:49:00 Test Item Value Reference Range Interpretation [...] code = 1663) SOURCE(BEAKER) (test code = 1474) BASIC METABOLIC [id number] 18:44:00 Test Item Value Reference Range Interpretation [...] S NOT APPLICABLE FOR DIALYSIS PATIEN TS. Bender Hand ID - GORDON, CHEST, 1 VIEW, NON [id number] 18:41:00Reason for exam:->COUGHReason for exam:->SHORTNESS OF BREATHReason [...] on10/12/2019 06:41 PMCBC W/PLT COUNT & AUTO [id number] 18:29:00 Test Item Value Reference Range Interpretation [...] PERCENT (BEAKER) (test code = 2801) CT, [id number] 16:47:00Reason for exam:->FEVERReason for exam:->LEG PAINIs the [...] by lack of intravenous contrast. Signed: Raymond Quigleyort Verified Date/Time: 02/15/2019 16:47:32 Reading Location: [address] Reading Room URINALYSIS W/ [id number] 15:41:00 Test Item Value Reference Range Interpretation [...] 1663) SOURCE(BEAKER) (test code = 2795) SCREEN, [id number] 15:29:00 Test Item Value Reference Range Interpretation Comments TEST URINE (BEAKER) (test Negative code = 583) COMPREHENSIVE METABOLIC [id number] 15:26:00 Test Item Value Reference Range Interpretation [...] S NOT APPLICABLE FOR DIALYSIS PATIEN TS. [id number] 15:26:00 Test Item Value Reference Range Interpretation Comments LIPASE (BEAKER) (test code = 749) 20 U/L 6-51 [id number] 15:17:00 Test Item Value Reference Range Interpretation Comments AMYLASE (BEAKER) (test 42 U/L 30-110 Speci men slightly code = 349) hemolyzed CBC W/PLT COUNT & AUTO [id number] 15:03:00 Test Item Value Reference Range Interpretation [...] = 2801) RAD, KNEE, COMPLETE (4 VIEWS), [id number] 23:20:00Reason for exam:->MOTOR VEHICLE CRASHReason for exam:->HIP [...] MDReport Verified Date/Time: 11/19/2018 23:20:49 Reading Location: [facility] C013Y CT Body Reading Room RAD, KNEE, COMPLETE (4 VIEWS), [id number] 23:20:00Reason for exam:- >MOTOR VEHICLE CRASHReason for [...] Friedman Verified Date/Time: 11/19/2018 23:20:49 Reading Location: [address] Body Reading Room RAD, HIP, 2 VIEWS, [id number] 23:06:00Reason for exam:->MOTOR VEHICLE CRASHReason for exam:->HIP PAINReason for exam:->ARM INJURYReason for exam:->SHOULDER INJURYFINAL REPORT Right hip series, 2 views Clinical Indication: Right Hip Pain Impression: No evidence of acute fracture or traumatic malalignment. Note: If occult injury is suspected,consider CT. Signed: Brian Garibay Verified Date/Time: 11/19/2018 23:06:27 Reading Location:[address] Reading Room CT, [id number] 22:44:00Reason for exam:->MOTOR VEHICLE CRASHReason for exam:->HIP [...] Alcantara Verified Date/Time: 11/19/2018 22:44:18 Reading Location: [address] Reading Room RAD, SHOULDER, COMPLETE (MIN 2 VIEWS), [id number] 22:41:00Reason for exam:->MOTOR VEHICLE CRASHReason for exam:->HIP PAINReason for exam:->ARM INJURYReason for exam:->SHOULDER INJURYFINAL REPORT Right shoulder series - 3 VIEWS Clinical Indication: Right shoulder pain following traumatic injury. Impression: No evidence of acute fracture or traumatic malalignment. Signed: Brian Garibay Verified Date/Time: 11/19/2018 22:41:16 Reading Location: [address] Reading Room URINALYSIS W/ [id number] 21:44:00 Test Item Value Reference Range Interpretation [...] 1663) SOURCE(BEAKER) (test code = 2795) SCREEN, [id number] 21:40:00 Test Item Value Reference Range Interpretation Comments TEST URINE (BEAKER) (test Negative code = 583) URINALYSIS W/ [id number] 21:41:00 Test Item Value Reference Range Interpretation [...] 1663) SOURCE(BEAKER) (test code = 2795) SCREEN, [id number] 21:37:00 Test Item Value Reference Range Interpretation Comments TEST URINE (BEAKER) (test Negative code = 583) RAPID INFLUENZA A&B [id number] 20:49:00 Test Item Value Reference Range Interpretation Comments RAPID INFLUENZA A AG (BEAKER) Negative Negative, Inconclusive (test code = 1622) RAPID INFLUENZA B AG (BEAKER) Negative Negative, Inconclusive (test code = 1623) CT, [id number] 08:31:00Reason for exam:->ABDOMINAL PAINReason for exam:->FEVERReason for [...] MDReport Verified Date/Time: 07/31/2017 08:31:14 Reading Location: [facility] Diagnostic Imaging Reading Room - [place] [id number] RAD, CHEST, 1 VIEW, NON [id number] 08:23:00Reason for exam:->ABDOMINAL PAINReason for exam:->FEVERReason for exam:->ORAL PAINShould this be performed at the bedside?->YesFINAL REPORT Chest, portable AP view History: Fever, pain Comparison: 03/25/2017 IMPRESSION: The cardiomediastinal silhouette and pulmonary vasculature are within normal limits. The lungs are clear without evidence of consolidation or effusion. There are no acute osseous abnormalities. The soft tissues are unremarkable. Signed: Bladimir Arellano MDRlambertort Verified Date/Time: 07/31/2017 08:23:48 Reading Location: [address] Radiology Reading Room [id number] 08:07:00 Test Item Value Reference Range Interpretation Comments LIPASE (BEAKER) (test code = 749) 34 U/L 6-51 URINALYSIS W/ REFLEX URINE [id number] 08:06:00 Test Item Value Reference Range Interpretation [...] SOURCE(BEAKER) (test code = 2795) COMPREHENSIVE METABOLIC [id number] 08:06:00 Test Item Value Reference Range Interpretation [...] S NOT APPLICABLE FOR DIALYSIS PATIEN TS. [id number] 07:58:00 Test Item Value Reference Range Interpretation Comments AMYLASE (BEAKER) (test code = 349) 52 U/L 30-110 SCREEN, [id number] 07:52:00 Test Item Value Reference Range Interpretation Comments TEST URINE (BEAKER) (test Negative code = 583) CBC W/PLT COUNT & AUTO [id number] 07:48:00 Test Item Value Reference Range Interpretation [...] 0.00-0.20 (test code = 417) BASIC METABOLIC [id number] 21:32:00 Test Item Value Reference Range Interpretation [...] DIALYSIS PATIEN TS. LACTIC ACID, VENOUS, WHOLE [id number] 21:19:00 Test Item Value Reference Range Interpretation Comments LACTATE BLOOD VENOUS 0.9 mmol/L 0.5-2.2 Specime n slightly (2) (BEAKER) (test hemolyzed code = 2872) Effective 12/15/2015: Units/Reference Range ChangeNew: 0.5-2.2 mmol/L Previous: 5- 18 mg/dLCBC W/PLT COUNT & AUTO [id number] 21:07:00 Test Item Value Reference Range Interpretation [...] L 0.00-0.20 (test code = 417) SCREEN, [id number] 18:50:00 Test Item Value Reference Range Interpretation Comments TEST URINE (BEAKER) (test Negative code = 583) URINE [id number] 09:20:00 Test Item Value Reference Range Interpretation [...] = 480) CBC W/PLT COUNT & AUTO [id number] 16:52:00 Test Item Value Reference Range Interpretation [...] 0.00-0.20 (test code = 417) COMPREHENSIVE METABOLIC [id number] 16:28:00 Test Item Value Reference Range Interpretation [...] S NOT APPLICABLE FOR DIALYSIS PATIEN TS. [id number] 16:22:00 Test Item Value Reference Range Interpretation Comments LIPASE (BEAKER) (test code = 749) 26 U/L 6-51 URINALYSIS W/ REFLEX URINE [id number] 15:52:00 Test Item Value Reference Range Interpretation [...] 1663) SOURCE(BEAKER) (test code = 2795) SCREEN, [id number] 15:49:00 Test Item Value Reference Range Interpretation Comments TEST URINE (BEAKER) (test Negative code = 583) URINE AND [id number] 08:40:00 Test Item Value Reference Range Interpretation Comments UA Leuk Est (test code Trace *ABN*(02/13/16 3:40 = UA Leuk Est) AM) [facility] AND [id number] 08:40:00 Test Item Value Reference Range Interpretation Comments UA Nitrite (test code Negative (02/13/16 3:40 = UA Nitrite) AM) [facility] AND [id number] 08:40:00 Test Item Value Reference Range Interpretation Comments UA Urobilinogen (test code = UA 0.2 0.1-1.0 Urobilinogen) [facility] AND [id number] 08:40:00 Test Item Value Reference Range Interpretation Comments UA Ketones (test code Negative *NA*(02/13/16 = UA Ketones) 3:40 AM) [facility] AND [id number] 08:40:00 Test Item Value Reference Range Interpretation Comments UA Glucose (test code Negative (02/13/16 3:40 = UA Glucose) AM) [facility] AND [id number] 08:40:00 Test Item Value Reference Range Interpretation Comments UA Blood (test code = Large *ABN*(02/13/16 UA Blood) 3:40 AM) [facility] AND [id number] 08:40:00 Test Item Value Reference Range Interpretation Comments UA Bili (test code = Negative *NA*(02/13/16 UA Bili) 3:40 AM) [facility] AND [id number] 08:40:00 Test Item Value Reference Range Interpretation Comments UA Protein (test code = UA Protein) 30 mg/dL [facility] AND [id number] 08:40:00 Test Item Value Reference Range Interpretation Comments UA Spec Grav (test code = UA Spec 1.015 1 Grav) [facility] AND [id number] 08:40:00 Test Item Value Reference Range Interpretation Comments UA pH (test code = UA pH) 7.0 1 5.0-8.0 [facility] AND [id number] 08:40:00 Test Item Value Reference Range Interpretation Comments UA Color (test code = Red *ABN*(02/13/16 3:40 UA Color) AM) [facility] AND [id number] 08:40:00 Test Item Value Reference Range Interpretation Comments UA Turbidity (test code Bloody *ABN*(02/13/16 = UA Turbidity) 3:40 AM) [facility] AND [id number] 08:40:00 Test Item Value Reference Range Interpretation Comments UA Bacteria (test code = UA Occasional /HPF Bacteria) [facility] AND [id number] 08:40:00 Test Item Value Reference Range Interpretation Comments UA RBC (test Packed See_Comment [Automated mes shirley] code = UA RBC) *ABN*(02/13/16 3:40 The syst em which AM) generated this result transmitted ref erence range: <=2. The reference range was not used to int erpret this result as normal/abnormal . [facility] AND [id number] 08:40:00 Test Item Value Reference Range Interpretation Comments UA WBC (test code = UA WBC) 3-5 /HPF [facility] AND [id number] 08:40:00 Test Item Value Reference Range Interpretation Comments UA Sq Epi (test code = UA Sq Epi) Rare /LPF [facility] AND [id number] 08:40:00 Test Item Value Reference Range Interpretation Comments UA Leuk Est (test code Trace *ABN*(02/13/16 3:40 = UA Leuk Est) AM) [facility] AND [id number] 08:40:00 Test Item Value Reference Range Interpretation Comments UA Nitrite (test code Negative (02/13/16 3:40 = UA Nitrite) AM) [facility] AND [id number] 08:40:00 Test Item Value Reference Range Interpretation Comments UA Urobilinogen (test code = UA 0.2 0.1-1.0 Urobilinogen) [facility] AND [id number] 08:40:00 Test Item Value Reference Range Interpretation Comments UA Ketones (test code Negative *NA*(02/13/16 = UA Ketones) 3:40 AM) [facility] AND [id number] 08:40:00 Test Item Value Reference Range Interpretation Comments UA Glucose (test code Negative (02/13/16 3:40 = UA Glucose) AM) [facility] AND [id number] 08:40:00 Test Item Value Reference Range Interpretation Comments UA Blood (test code = Large *ABN*(02/13/16 UA Blood) 3:40 AM) [facility] AND [id number] 08:40:00 Test Item Value Reference Range Interpretation Comments UA Bili (test code = Negative *NA*(02/13/16 UA Bili) 3:40 AM) [facility] AND [id number] 08:40:00 Test Item Value Reference Range Interpretation Comments UA Protein (test code = UA Protein) 30 mg/dL [facility] AND [id number] 08:40:00 Test Item Value Reference Range Interpretation Comments UA Spec Grav (test code = UA Spec 1.015 1 Grav) [facility] AND [id number] 08:40:00 Test Item Value Reference Range Interpretation Comments UA pH (test code = UA pH) 7.0 1 5.0-8.0 [facility] AND [id number] 08:40:00 Test Item Value Reference Range Interpretation Comments UA Color (test code = Red *ABN*(02/13/16 3:40 UA Color) AM) [facility] AND [id number] 08:40:00 Test Item Value Reference Range Interpretation Comments UA Turbidity (test code Bloody *ABN*(02/13/16 = UA Turbidity) 3:40 AM) [facility] AND [id number] 08:40:00 Test Item Value Reference Range Interpretation Comments UA Bacteria (test code = UA Occasional /HPF Bacteria) [facility] AND [id number] 08:40:00 Test Item Value Reference Range Interpretation Comments UA RBC (test Packed See_Comment [Automated mes shirley] code = UA RBC) *ABN*(02/13/16 3:40 The syst em which AM) generated this result transmitted ref erence range: <=2. The reference range was not used to int erpret this result as normal/abnormal . [facility] AND [id number] 08:40:00 Test Item Value Reference Range Interpretation Comments UA WBC (test code = UA WBC) 3-5 /HPF [facility] AND [id number] 08:40:00 Test Item Value Reference Range Interpretation Comments UA Sq Epi (test code = UA Sq Epi) Rare /LPF [facility] AND [id number] 08:40:00 Test Item Value Reference Range Interpretation Comments UA Leuk Est (test code Trace *ABN*(02/13/16 3:40 = UA Leuk Est) AM) [facility] AND [id number] 08:40:00 Test Item Value Reference Range Interpretation Comments UA Nitrite (test code Negative (02/13/16 3:40 = UA Nitrite) AM) [facility] AND [id number] 08:40:00 Test Item Value Reference Range Interpretation Comments UA Urobilinogen (test code = UA 0.2 0.1-1.0 Urobilinogen) [facility] AND [id number] 08:40:00 Test Item Value Reference Range Interpretation Comments UA Ketones (test code Negative *NA*(02/13/16 = UA Ketones) 3:40 AM) [facility] AND [id number] 08:40:00 Test Item Value Reference Range Interpretation Comments UA Glucose (test code Negative (02/13/16 3:40 = UA Glucose) AM) [facility] AND [id number] 08:40:00 Test Item Value Reference Range Interpretation Comments UA Blood (test code = Large *ABN*(02/13/16 UA Blood) 3:40 AM) [facility] AND [id number] 08:40:00 Test Item Value Reference Range Interpretation Comments UA Bili (test code = Negative *NA*(02/13/16 UA Bili) 3:40 AM) [facility] AND [id number] 08:40:00 Test Item Value Reference Range Interpretation Comments UA Protein (test code = UA Protein) 30 mg/dL [facility] AND [id number] 08:40:00 Test Item Value Reference Range Interpretation Comments UA Spec Grav (test code = UA Spec 1.015 1 Grav) [facility] AND [id number] 08:40:00 Test Item Value Reference Range Interpretation Comments UA pH (test code = UA pH) 7.0 1 5.0-8.0 [facility] AND [id number] 08:40:00 Test Item Value Reference Range Interpretation Comments UA Color (test code = Red *ABN*(02/13/16 3:40 UA Color) AM) [facility] AND [id number] 08:40:00 Test Item Value Reference Range Interpretation Comments UA Turbidity (test code Bloody *ABN*(02/13/16 = UA Turbidity) 3:40 AM) [facility] AND [id number] 08:40:00 Test Item Value Reference Range Interpretation Comments UA Bacteria (test code = UA Occasional /HPF Bacteria) [facility] AND [id number] 08:40:00 Test Item Value Reference Range Interpretation Comments UA RBC (test Packed See_Comment [Automated mes shirley] code = UA RBC) *ABN*(02/13/16 3:40 The syst em which AM) generated this result transmitted ref erence range: <=2. The reference range was not used to int erpret this result as normal/abnormal . [facility] AND [id number] 08:40:00 Test Item Value Reference Range Interpretation Comments UA WBC (test code = UA WBC) 3-5 /HPF [facility] AND [id number] 08:40:00 Test Item Value Reference Range Interpretation Comments UA Sq Epi (test code = UA Sq Epi) Rare /LPF [facility] AND [id number] 08:40:00 Test Item Value Reference Range Interpretation Comments UA Leuk Est (test code Trace *ABN*(02/13/16 3:40 = UA Leuk Est) AM) [facility] AND [id number] 08:40:00 Test Item Value Reference Range Interpretation Comments UA Nitrite (test code Negative (02/13/16 3:40 = UA Nitrite) AM) [facility] AND [id number] 08:40:00 Test Item Value Reference Range Interpretation Comments UA Urobilinogen (test code = UA 0.2 0.1-1.0 Urobilinogen) [facility] AND [id number] 08:40:00 Test Item Value Reference Range Interpretation Comments UA Ketones (test code Negative *NA*(02/13/16 = UA Ketones) 3:40 AM) [facility] AND [id number] 08:40:00 Test Item Value Reference Range Interpretation Comments UA Glucose (test code Negative (02/13/16 3:40 = UA Glucose) AM) [facility] AND [id number] 08:40:00 Test Item Value Reference Range Interpretation Comments UA Blood (test code = Large *ABN*(02/13/16 UA Blood) 3:40 AM) [facility] AND [id number] 08:40:00 Test Item Value Reference Range Interpretation Comments UA Bili (test code = Negative *NA*(02/13/16 UA Bili) 3:40 AM) [facility] AND [id number] 08:40:00 Test Item Value Reference Range Interpretation Comments UA Protein (test code = UA Protein) 30 mg/dL [facility] AND [id number] 08:40:00 Test Item Value Reference Range Interpretation Comments UA Spec Grav (test code = UA Spec 1.015 1 Grav) [facility] AND [id number] 08:40:00 Test Item Value Reference Range Interpretation Comments UA pH (test code = UA pH) 7.0 1 5.0-8.0 [facility] AND [id number] 08:40:00 Test Item Value Reference Range Interpretation Comments UA Color (test code = Red *ABN*(02/13/16 3:40 UA Color) AM) [facility] AND [id number] 08:40:00 Test Item Value Reference Range Interpretation Comments UA Turbidity (test code Bloody *ABN*(02/13/16 = UA Turbidity) 3:40 AM) [facility] AND [id number] 08:40:00 Test Item Value Reference Range Interpretation Comments UA Bacteria (test code = UA Occasional /HPF Bacteria) [facility] AND [id number] 08:40:00 Test Item Value Reference Range Interpretation Comments UA RBC (test Packed See_Comment [Automated mes shirley] code = UA RBC) *ABN*(02/13/16 3:40 The syst em which AM) generated this result transmitted ref erence range: <=2. The reference range was not used to int erpret this result as normal/abnormal . [facility] AND [id number] 08:40:00 Test Item Value Reference Range Interpretation Comments UA WBC (test code = UA WBC) 3-5 /HPF [facility] AND [id number] 08:40:00 Test Item Value Reference Range Interpretation Comments UA Sq Epi (test code = UA Sq Epi) Rare /LPF [facility] AND [id number] 08:40:00 Test Item Value Reference Range Interpretation Comments UA Leuk Est (test code Trace *ABN*(02/13/16 3:40 = UA Leuk Est) AM) [facility] AND [id number] 08:40:00 Test Item Value Reference Range Interpretation Comments UA Nitrite (test code Negative (02/13/16 3:40 = UA Nitrite) AM) [facility] AND [id number] 08:40:00 Test Item Value Reference Range Interpretation Comments UA Urobilinogen (test code = UA 0.2 0.1-1.0 Urobilinogen) [facility] AND [id number] 08:40:00 Test Item Value Reference Range Interpretation Comments UA Ketones (test code Negative *NA*(02/13/16 = UA Ketones) 3:40 AM) [facility] AND [id number] 08:40:00 Test Item Value Reference Range Interpretation Comments UA Glucose (test code Negative (02/13/16 3:40 = UA Glucose) AM) [facility] AND [id number] 08:40:00 Test Item Value Reference Range Interpretation Comments UA Blood (test code = Large *ABN*(02/13/16 UA Blood) 3:40 AM) [facility] AND [id number] 08:40:00 Test Item Value Reference Range Interpretation Comments UA Bili (test code = Negative *NA*(02/13/16 UA Bili) 3:40 AM) [facility] AND [id number] 08:40:00 Test Item Value Reference Range Interpretation Comments UA Protein (test code = UA Protein) 30 mg/dL [facility] AND [id number] 08:40:00 Test Item Value Reference Range Interpretation Comments UA Spec Grav (test code = UA Spec 1.015 1 Grav) [facility] AND [id number] 08:40:00 Test Item Value Reference Range Interpretation Comments UA pH (test code = UA pH) 7.0 1 5.0-8.0 [facility] AND [id number] 08:40:00 Test Item Value Reference Range Interpretation Comments UA Color (test code = Red *ABN*(02/13/16 3:40 UA Color) AM) [facility] AND [id number] 08:40:00 Test Item Value Reference Range Interpretation Comments UA Turbidity (test code Bloody *ABN*(02/13/16 = UA Turbidity) 3:40 AM) [facility] AND [id number] 08:40:00 Test Item Value Reference Range Interpretation Comments UA Bacteria (test code = UA Occasional /HPF Bacteria) [facility] AND [id number] 08:40:00 Test Item Value Reference Range Interpretation Comments UA RBC (test Packed See_Comment [Automated mes shirley] code = UA RBC) *ABN*(02/13/16 3:40 The syst em which AM) generated this result transmitted ref erence range: <=2. The reference range was not used to int erpret this result as normal/abnormal . [facility] AND [id number] 08:40:00 Test Item Value Reference Range Interpretation Comments UA WBC (test code = UA WBC) 3-5 /HPF [facility] AND [id number] 08:40:00 Test Item Value Reference Range Interpretation Comments UA Sq Epi (test code = UA Sq Epi) Rare /LPF [facility] AND [id number] 08:40:00 Test Item Value Reference Range Interpretation Comments UA Leuk Est (test code Trace *ABN*(02/13/16 3:40 = UA Leuk Est) AM) [facility] AND [id number] 08:40:00 Test Item Value Reference Range Interpretation Comments UA Nitrite (test code Negative (02/13/16 3:40 = UA Nitrite) AM) [facility] AND [id number] 08:40:00 Test Item Value Reference Range Interpretation Comments UA Urobilinogen (test code = UA 0.2 0.1-1.0 Urobilinogen) [facility] AND [id number] 08:40:00 Test Item Value Reference Range Interpretation Comments UA Ketones (test code Negative *NA*(02/13/16 = UA Ketones) 3:40 AM) [facility] AND [id number] 08:40:00 Test Item Value Reference Range Interpretation Comments UA Glucose (test code Negative (02/13/16 3:40 = UA Glucose) AM) [facility] AND [id number] 08:40:00 Test Item Value Reference Range Interpretation Comments UA Blood (test code = Large *ABN*(02/13/16 UA Blood) 3:40 AM) [facility] AND [id number] 08:40:00 Test Item Value Reference Range Interpretation Comments UA Bili (test code = Negative *NA*(02/13/16 UA Bili) 3:40 AM) [facility] AND [id number] 08:40:00 Test Item Value Reference Range Interpretation Comments UA Protein (test code = UA Protein) 30 mg/dL [facility] AND [id number] 08:40:00 Test Item Value Reference Range Interpretation Comments UA Spec Grav (test code = UA Spec 1.015 1 Grav) [facility] AND [id number] 08:40:00 Test Item Value Reference Range Interpretation Comments UA pH (test code = UA pH) 7.0 1 5.0-8.0 [facility] AND [id number] 08:40:00 Test Item Value Reference Range Interpretation Comments UA Color (test code = Red *ABN*(02/13/16 3:40 UA Color) AM) [facility] AND [id number] 08:40:00 Test Item Value Reference Range Interpretation Comments UA Turbidity (test code Bloody *ABN*(02/13/16 = UA Turbidity) 3:40 AM) [facility] AND [id number] 08:40:00 Test Item Value Reference Range Interpretation Comments UA Bacteria (test code = UA Occasional /HPF Bacteria) [facility] AND [id number] 08:40:00 Test Item Value Reference Range Interpretation Comments UA RBC (test Packed See_Comment [Automated mes shirley] code = UA RBC) *ABN*(02/13/16 3:40 The syst em which AM) generated this result transmitted ref erence range: <=2. The reference range was not used to int erpret this result as normal/abnormal . [facility] AND [id number] 08:40:00 Test Item Value Reference Range Interpretation Comments UA WBC (test code = UA WBC) 3-5 /HPF [facility] AND [id number] 08:40:00 Test Item Value Reference Range Interpretation Comments UA Sq Epi (test code = UA Sq Epi) Rare /LPF [facility] AND [id number] 08:40:00 Test Item Value Reference Range Interpretation Comments UA Leuk Est (test code Trace *ABN*(02/13/16 3:40 = UA Leuk Est) AM) [facility] AND [id number] 08:40:00 Test Item Value Reference Range Interpretation Comments UA Nitrite (test code Negative (02/13/16 3:40 = UA Nitrite) AM) [facility] AND [id number] 08:40:00 Test Item Value Reference Range Interpretation Comments UA Urobilinogen (test code = UA 0.2 0.1-1.0 Urobilinogen) [facility] AND [id number] 08:40:00 Test Item Value Reference Range Interpretation Comments UA Ketones (test code Negative *NA*(02/13/16 = UA Ketones) 3:40 AM) [facility] AND [id number] 08:40:00 Test Item Value Reference Range Interpretation Comments UA Glucose (test code Negative (02/13/16 3:40 = UA Glucose) AM) [facility] AND [id number] 08:40:00 Test Item Value Reference Range Interpretation Comments UA Blood (test code = Large *ABN*(02/13/16 UA Blood) 3:40 AM) [facility] AND [id number] 08:40:00 Test Item Value Reference Range Interpretation Comments UA Bili (test code = Negative *NA*(02/13/16 UA Bili) 3:40 AM) [facility] AND [id number] 08:40:00 Test Item Value Reference Range Interpretation Comments UA Protein (test code = UA Protein) 30 mg/dL [facility] AND [id number] 08:40:00 Test Item Value Reference Range Interpretation Comments UA Spec Grav (test code = UA Spec 1.015 1 Grav) [facility] AND [id number] 08:40:00 Test Item Value Reference Range Interpretation Comments UA pH (test code = UA pH) 7.0 1 5.0-8.0 [facility] AND [id number] 08:40:00 Test Item Value Reference Range Interpretation Comments UA Color (test code = Red *ABN*(02/13/16 3:40 UA Color) AM) [facility] AND [id number] 08:40:00 Test Item Value Reference Range Interpretation Comments UA Turbidity (test code Bloody *ABN*(02/13/16 = UA Turbidity) 3:40 AM) [facility] AND [id number] 08:40:00 Test Item Value Reference Range Interpretation Comments UA Bacteria (test code = UA Occasional /HPF Bacteria) [facility] AND [id number] 08:40:00 Test Item Value Reference Range Interpretation Comments UA RBC (test Packed See_Comment [Automated mes shirley] code = UA RBC) *ABN*(02/13/16 3:40 The syst em which AM) generated this result transmitted ref erence range: <=2. The reference range was not used to int erpret this result as normal/abnormal . [facility] AND [id number] 08:40:00 Test Item Value Reference Range Interpretation Comments UA WBC (test code = UA WBC) 3-5 /HPF [facility] AND [id number] 08:40:00 Test Item Value Reference Range Interpretation Comments UA Sq Epi (test code = UA Sq Epi) Rare /[facility]F [id number] 06:44:00 Test Item Value Reference Range Interpretation Comments WBC (test code = WBC) 12.4 3.7-10.4 [facility] [id number] 06:44:00 Test Item Value Reference Range Interpretation Comments RBC (test code = RBC) 3.72 4.20-5.40 [facility] [id number] 06:44:00 Test Item Value Reference Range Interpretation Comments Hgb (test code = Hgb) 8.1 12.0-16.0 [facility] [id number] 06:44:00 Test Item Value Reference Range Interpretation Comments PTT (test code = PTT) 27.2 s 22.9-35.8 [facility] [id number] 06:44:00 Test Item Value Reference Range Interpretation Comments PT (test code = PT) 14.7 s 12.0-14.7 [facility] [id number] 06:44:00 Test Item Value Reference Range Interpretation Comments INR (test code = INR) 1.12 0.85-1.17 [facility] [employer] [id number] 06:44:00 Test Item Value Reference Range Interpretation Comments Antibody Scrn (test Negative (02/13/16 1:44 code = Antibody Scrn) AM) [facility] [employer] [id number] 06:44:00 Test Item Value Reference Range Interpretation Comments ABO/Rh (test code = ABO/Rh) [facility] [id number] 06:44:00 Test Item Value Reference Range Interpretation Comments CK MB Index (test 1.6 See_Comment [Automate d message] The code = CK MB Index) system w [facility] generated this result transmit gaye reference range : <=2.5. The reference range was not used to interpr et this result as satish l/abnormal. [employer]2016-07-03 06:44:00 Test Item Value Reference Range Interpretation Comments CK MB (test code = CK MB) 0.9 0.5-3.6 [facility] [employer]2016-07-03 06:44:00 Test Item Value Reference Range Interpretation Comments Total CK (test code = Total CK) 57 12-191 [facility] [employer]2016-07-03 06:44:00 Test Item Value Reference Range Interpretation Comments Troponin-I (test code no gt See_Comment [Auto mated message] The = Troponin-I) system which g enerated this result transmit gaye reference range : <=0.40. The reference r ozzy was not used to interpr et this result as satish l/abnormal. [employer] [id number] 06:44:00 Test Item Value Reference Range Interpretation Comments Albumin Lvl (test code = Albumin Lvl) 3.5 3.5-5.0 [employer] [id number] 06:44:00 Test Item Value Reference Range Interpretation Comments Total Protein (test code = Total 7.0 6.4-8.4 Protein) [employer] [id number] 06:44:00 Test Item Value Reference Range Interpretation Comments ALT (test code = ALT) 19 See_Comment [Auto mated message] The system which ge nerated this result transmit gaye reference range : <=65. The reference range was not used to interpr et this result as satish l/abnormal. [facility] [id number] 06:44:00 Test Item Value Reference Range Interpretation Comments AST (test code = AST) 10 See_Comment [Auto mated message] The system which ge nerated this result transmit gaye reference range : <=37. The reference range was not used to interpr et this result as satish l/abnormal. [facility] [id number] 06:44:00 Test Item Value Reference Range Interpretation Comments Alk Phos (test code = Alk Phos) 79 39-136 [facility] [id number] 06:44:00 Test Item Value Reference Range Interpretation Comments Bili Total (test code = Bili Total) 0.4 0.2-1.3 [facility] [place]uro[place] [id number] 06:44:00 Test Item Value Reference Range Interpretation Comments Bili Direct (test code 0.1 See_Comment [Aut omated message] The = Bili Direct) system which generated this result tra nsmitted reference range : <=0.3. The reference r ozzy was not used to int erpret this result as satish l/abnormal. [facility] [id number] 06:44:00 Test Item Value Reference Range Interpretation Comments Globulin (test code = Globulin) 3.5 2.0-4.0 [facility] [id number] 06:44:00 Test Item Value Reference Range Interpretation Comments A/G Ratio (test code = A/G Ratio) 1.0 0.7-1.6 [facility] DallasNeurodynMARG[place] [id number] 06:44:00 Test Item Value Reference Range Interpretation Comments Bili Indirect (test 0.3 See_Comment [Automa gaye message] The code = Bili Indirect) system which generated this result tra nsmitted reference range : <=1.0. The reference r ozzy was not used to int erpret this result as normal/abnormal . [facility] [id number] 06:44:00 Test Item Value Reference Range Interpretation Comments eGFR (test code = eGFR) 107 [facility] [id number] 06:44:00 Test Item Value Reference Range Interpretation Comments BUN (test code = BUN) 8 7-22 [facility]2016-07-03 06:44:00 Test Item Value Reference Range Interpretation Comments Glucose Lvl (test code = Glucose Lvl) 91 70-99 [facility] [facility] 06:[facility]:00 Test Item Value Reference Range Interpretation Comments Sodium Lvl (test code = Sodium Lvl) 138 135-145 [facility]2016-07-03 06:44:00 Test Item Value Reference Range Interpretation Comments Creatinine Lvl (test code = Creatinine 0.70 0.50-1.40 Lvl) [facility]2016-07-03 06:44:00 Test Item Value Reference Range Interpretation Comments Potassium Lvl (test code = Potassium 3.3 3.5-5.1 Lvl) [facility]2016-07-03 06:44:00 Test Item Value Reference Range Interpretation Comments CO2 (test code = CO2) 25 24-32 [facility]2016-07-03 06:44:00 Test Item Value Reference Range Interpretation Comments Chloride Lvl (test code = Chloride Lvl) 106 95-109 [facility]2016-07-03 06:44:00 Test Item Value Reference Range Interpretation Comments Calcium Lvl (test code = Calcium Lvl) 8.1 8.5-10.5 [facility]2016-07-03 06:44:00 Test Item Value Reference Range Interpretation Comments AGAP (test code = AGAP) 10.3 10.0-20.0 [facility]2016-07-03 06:44:00 Test Item Value Reference Range Interpretation Comments Magnesium Lvl (test code = Magnesium 2.2 1.8-2.4 Lvl) [facility]MPCDZIV2586-99-53 06:44:00 Test Item Value Reference Range Interpretation Comments S Preg (test code = S Negative *NA*(02/13/16 Preg) 1:44 AM) [facility] 06:44:00 Test Item Value Reference Range Interpretation Comments Basophils (test code = 0.1 See_Comment [Aut omated message] The Basophils) system which ge nerated this result tra nsmitted reference range : <=1.0. The reference r ozzy was not used to int erpret this result as normal/abnormal . [facility] CenterEbwnstsKVIGAEQAOU7585-37-31 06:44:00 Test Item Value Reference Range Interpretation Comments Monocytes # (test code 0.3 See_Comment [Aut omated message] The = Monocytes #) system which generated this result tra nsmitted reference range : <=0.8. The reference r ozzy was not used to int erpret this result as normal/abnormal . [facility] CenterUvpmpkaQPYTSQBGJB3827-71-30 06:44:00 Test Item Value Reference Range Interpretation Comments Eosinophils # (test code 0.1 See_Comment [A utomated message] The = Eosinophils #) system whic h generated this result tra nsmitted reference range : <=0.5. The reference r ozzy was not used to int erpret this result as normal/abnormal . [facility] CenterUdjupbaRMFMUQWNKR9958-21-15 06:44:00 Test Item Value Reference Range Interpretation Comments Segs-Bands # (test code = Segs-Bands #) 9.3 1.5-8.1 [facility] CenterEkgbggqFUKKOWMJOI7033-80-13 06:44:00 Test Item Value Reference Range Interpretation Comments Lymphocytes # (test code = Lymphocytes 2.6 1.0-5.5 #) [facility] CenterWralvlaXNYTRZLYBT3911-08-87 06:44:00 Test Item Value Reference Range Interpretation Comments Basophils # (test code 0.0 See_Comment [Aut omated message] The = Basophils #) system which generated this result tra nsmitted reference range : <=0.2. The reference r ozzy was not used to int erpret this result as normal/abnormal . [facility] CenterIadwclpSKWMGATFBD4746-08-66 06:44:00 Test Item Value Reference Range Interpretation Comments Microcyte (test code = 1+ *ABN*(02/13/16 1:44 Microcyte) AM) [facility] CenterXwcsvwgYPUKXIJIJN3418-31-70 06:44:00 Test Item Value Reference Range Interpretation Comments Giant Plt (test code Moderate *ABN*(02/13/16 = Giant Plt) 1:44 AM) [facility] CenterZhbuzroWUVBLICSQE1650-75-44 06:44:00 Test Item Value Reference Range Interpretation Comments Segs (test code = Segs) 75.2 45.0-75.0 [facility] CenterFpfyuwvHAGRNKJRXQ8192-33-79 06:44:00 Test Item Value Reference Range Interpretation Comments Hypochrom (test code = 1+ (02/13/16 1:44 AM) Hypochrom) [facility] CenterOiqlgykDFZBCMGUXN8684-84-31 06:44:00 Test Item Value Reference Range Interpretation Comments Eosinophils (test code = 0.7 See_Comment [A utomated message] The Eosinophils) system which ge nerated this result tra nsmitted reference range : <=4.0. The reference r ozzy was not used to int erpret this result as normal/abnormal . [facility] CenterLuewvbzWYZLJKACTA8729-73-28 06:44:00 Test Item Value Reference Range Interpretation Comments Lymphocytes (test code = Lymphocytes) 21.3 20.0-40.0 [facility] CenterVapmbotHBUAUUBYYY6756-99-42 06:44:00 Test Item Value Reference Range Interpretation Comments Monocytes (test code = Monocytes) 2.7 2.0-12.0 [facility] CenterBposilsJNPGHTINGT2213-05-36 06:44:00 Test Item Value Reference Range Interpretation Comments MPV (test code = MPV) 9.5 7.4-10.4 [facility] CenterIucaqbvTPORXHCNRQ9916-35-90 06:44:00 Test Item Value Reference Range Interpretation Comments RDW (test code = RDW) 17.8 11.5-14.5 [facility] CenterUyamowbBYDWXDAVYL8117-83-18 06:44:00 Test Item Value Reference Range Interpretation Comments MCV (test code = MCV) 73.2 80.0-98.0 [facility] CenterAwopxvnIRBGFMNOFS9968-36-15 06:44:00 Test Item Value Reference Range Interpretation Comments MCH (test code = MCH) 21.9 pg 27.0-31.0 [facility] CenterCwdvymfYRZQNGKOYJ4191-44-99 06:44:00 Test Item Value Reference Range Interpretation Comments Hct (test code = Hct) 27.2 36.0-48.0 [facility] CenterIxfxgzbBLCXIURXIW3595-21-41 06:44:00 Test Item Value Reference Range Interpretation Comments MCHC (test code = MCHC) 29.9 32.0-36.0 [facility] CenterWrukqupWVBIDSPAXO8152-09-17 06:44:00 Test Item Value Reference Range Interpretation Comments Platelet (test code = Platelet) 400 133-450 [facility] CenterQmasyjyWPSEADQPPJ0852-03-36 06:44:00 Test Item Value Reference Range Interpretation Comments WBC (test code = WBC) 12.4 3.7-10.4 [employer]ZlbkulkJJWSDZDILW4288-39-73 06:44:00 Test Item Value Reference Range Interpretation Comments RBC (test code = RBC) 3.72 4.20-5.40 [facility] YlajndyFRITDHEJIK7417-24-86 06:44:00 Test Item Value Reference Range Interpretation Comments Hgb (test code = Hgb) 8.1 12.0-16.0 [facility] PxjoeowNCAYNQHRUD8053-75-51 06:44:00 Test Item Value Reference Range Interpretation Comments PTT (test code = PTT) 27.2 s 22.9-35.8 [employer] TechnologiesTtslwqpOEOWCJKIAD5613-27-56 06:44:00 Test Item Value Reference Range Interpretation Comments PT (test code = PT) 14.7 s 12.0-14.7 [facility] ErhidooZXVXZUZYLP1704-83-32 06:44:00 Test Item Value Reference Range Interpretation Comments INR (test code = INR) 1.12 0.85-1.17 [employer] QMGQFXG7668-78-87 06:44:00 Test Item Value Reference Range Interpretation Comments Antibody Scrn (test Negative (02/13/16 1:44 code = Antibody Scrn) AM) [employer] ZIEREWJ4569-79-00 06:44:00 Test Item Value Reference Range Interpretation Comments ABO/Rh (test code = ABO/Rh) A POS [employer]2016-07-03 06:44:00 Test Item Value Reference Range Interpretation Comments CK MB Index (test 1.6 See_Comment [Automate d message] The code = CK MB Index) system w [facility] generated this result transmit gaye reference range : <=2.5. The reference range was not used to interpr et this result as satish l/abnormal. [employer]2016-07-03 06:44:00 Test Item Value Reference Range Interpretation Comments CK MB (test code = CK MB) 0.9 0.5-3.6 [employer]2016-07-03 06:44:00 Test Item Value Reference Range Interpretation Comments Total CK (test code = Total CK) 57 12-191 [facility] [employer]2016-07-03 06:44:00 Test Item Value Reference Range Interpretation Comments Troponin-I (test code no gt See_Comment [Auto mated message] The = Troponin-I) system which g enerated this result transmit gaye reference range : <=0.40. The reference r ozzy was not used to interpr et this result as satish l/abnormal. [facility] [id number] 06:44:00 Test Item Value Reference Range Interpretation Comments Albumin Lvl (test code = Albumin Lvl) 3.5 3.5-5.0 [facility]2016-07-03 06:44:00 Test Item Value Reference Range Interpretation Comments Total Protein (test code = Total 7.0 6.4-8.4 Protein) [facility]2016-07-03 06:44:00 Test Item Value Reference Range Interpretation Comments ALT (test code = ALT) 19 See_Comment [Auto mated message] The system which ge nerated this result transmit gaye reference range : <=65. The reference range was not used to interpr et this result as satish l/abnormal. [facility] UVSNX9899-08-57 06:44:00 Test Item Value Reference Range Interpretation Comments AST (test code = AST) 10 See_Comment [Auto mated message] The system which ge nerated this result transmit gaye reference range : <=37. The reference range was not used to interpr et this result as satish l/abnormal. [facility]2016-07-03 06:44:00 Test Item Value Reference Range Interpretation Comments Alk Phos (test code = Alk Phos) 79 39-136 [facility] IP [id number] 06:44:00 Test Item Value Reference Range Interpretation Comments Bili Total (test code = Bili Total) 0.4 0.2-1.3 [facility]2016-07-03 06:44:00 Test Item Value Reference Range Interpretation Comments Bili Direct (test code 0.1 See_Comment [Aut omated message] The = Bili Direct) system which generated this result tra nsmitted reference range : <=0.3. The reference r ozzy was not used to int erpret this result as satish l/abnormal. [facility] [id number] 06:44:00 Test Item Value Reference Range Interpretation Comments Globulin (test code = Globulin) 3.5 2.0-4.0 [facility]2016-07-03 06:44:00 Test Item Value Reference Range Interpretation Comments A/G Ratio (test code = A/G Ratio) 1.0 0.7-1.6 [facility]2016-07-03 06:44:00 Test Item Value Reference Range Interpretation Comments Bili Indirect (test 0.3 See_Comment [Automa gaye message] The code = Bili Indirect) system which generated this result tra nsmitted reference range : <=1.0. The reference r ozzy was not used to int erpret this result as normal/abnormal . [place] 016126-07-03 06:44:00 Test Item Value Reference Range Interpretation Comments eGFR (test code = eGFR) 107 [facility]2016-07-03 06:44:00 Test Item Value Reference Range Interpretation Comments BUN (test code = BUN) 8 7-22 [facility]2016-07-03 06:44:00 Test Item Value Reference Range Interpretation Comments Glucose Lvl (test code = Glucose Lvl) 91 70-99 [facility]2016-07-03 06:44:00 Test Item Value Reference Range Interpretation Comments Sodium Lvl (test code = Sodium Lvl) 138 135-145 [facility]2016-07-03 06:44:00 Test Item Value Reference Range Interpretation Comments Creatinine Lvl (test code = Creatinine 0.70 0.50-1.40 Lvl) [facility]2016-07-03 06:44:00 Test Item Value Reference Range Interpretation Comments Potassium Lvl (test code = Potassium 3.3 3.5-5.1 Lvl) [facility]2016-07-03 06:44:00 Test Item Value Reference Range Interpretation Comments CO2 (test code = CO2) 25 24-32 [place] 016126-07-03 06:44:00 Test Item Value Reference Range Interpretation Comments Chloride Lvl (test code = Chloride Lvl) 106 95-109 [place] 016126-07-03 06:44:00 Test Item Value Reference Range Interpretation Comments Calcium Lvl (test code = Calcium Lvl) 8.1 8.5-10.5 [place] 016126-07-03 06:44:00 Test Item Value Reference Range Interpretation Comments AGAP (test code = AGAP) 10.3 10.0-20.0 [facility]2016-07-03 06:44:00 Test Item Value Reference Range Interpretation Comments Magnesium Lvl (test code = Magnesium 2.2 1.8-2.4 Lvl) [place] [id number] 06:44:00 Test Item Value Reference Range Interpretation Comments S Preg (test code = S Negative *NA*(02/13/16 Preg) 1:44 AM) [facility] CenterRwuxbqlOLFJRWRPAG0936-42-62 06:44:00 Test Item Value Reference Range Interpretation Comments Basophils (test code = 0.1 See_Comment [Aut omated message] The Basophils) system which ge nerated this result tra nsmitted reference range : <=1.0. The reference r ozzy was not used to int erpret this result as normal/abnormal . [facility] CenterVggyazhVGMXGLQTSD7263-03-42 06:44:00 Test Item Value Reference Range Interpretation Comments Monocytes # (test code 0.3 See_Comment [Aut omated message] The = Monocytes #) system which generated this result tra nsmitted reference range : <=0.8. The reference r ozzy was not used to int erpret this result as normal/abnormal . [facility] CenterHjcujffWOMXIQSXJT7266-72-94 06:44:00 Test Item Value Reference Range Interpretation Comments Eosinophils # (test code 0.1 See_Comment [A utomated message] The = Eosinophils #) system whic h generated this result tra nsmitted reference range : <=0.5. The reference r ozzy was not used to int erpret this result as normal/abnormal . [facility] CenterEtqwhcpWOFPBGYMWW9797-40-61 06:44:00 Test Item Value Reference Range Interpretation Comments Segs-Bands # (test code = Segs-Bands #) 9.3 1.5-8.1 [facility] CenterOjkrcdlBSRKJFMKDY3435-30-75 06:44:00 Test Item Value Reference Range Interpretation Comments Lymphocytes # (test code = Lymphocytes 2.6 1.0-5.5 #) [facility] CenterJidpyfgNMESPYJXMO7617-68-96 06:44:00 Test Item Value Reference Range Interpretation Comments Basophils # (test code 0.0 See_Comment [Aut omated message] The = Basophils #) system which generated this result tra nsmitted reference range : <=0.2. The reference r ozzy was not used to int erpret this result as normal/abnormal . [facility] CenterIrhhmakBRRFVJKAZG6697-89-42 06:44:00 Test Item Value Reference Range Interpretation Comments Microcyte (test code = 1+ *ABN*(02/13/16 1:44 Microcyte) AM) [facility] CenterJpfndlmEFLFFEKFNP1553-91-55 06:44:00 Test Item Value Reference Range Interpretation Comments Giant Plt (test code Moderate *ABN*(02/13/16 = Giant Plt) 1:44 AM) [facility] CenterNpcuxstIBBLWDBKBA9806-30-49 06:44:00 Test Item Value Reference Range Interpretation Comments Segs (test code = Segs) 75.2 45.0-75.0 [facility] CenterTekaosyWPAQCIJMDW3807-82-90 06:44:00 Test Item Value Reference Range Interpretation Comments Hypochrom (test code = 1+ (02/13/16 1:44 AM) Hypochrom) [facility] CenterEqydcoxVYJKKZWYIY8585-06-16 06:44:00 Test Item Value Reference Range Interpretation Comments Eosinophils (test code = 0.7 See_Comment [A utomated message] The Eosinophils) system which ge nerated this result tra nsmitted reference range : <=4.0. The reference r ozzy was not used to int erpret this result as normal/abnormal . [facility] CenterRywmdfhPUJWKYWMLP4548-96-98 06:44:00 Test Item Value Reference Range Interpretation Comments Lymphocytes (test code = Lymphocytes) 21.3 20.0-40.0 [facility] CenterQxlacxwEAWYJQXFLY2986-00-72 06:44:00 Test Item Value Reference Range Interpretation Comments Monocytes (test code = Monocytes) 2.7 2.0-12.0 [facility] CenterUryybxcSLTGCNPLRE5874-09-58 06:44:00 Test Item Value Reference Range Interpretation Comments MPV (test code = MPV) 9.5 7.4-10.4 [facility] CenterYjpwwywDBRBDEIJWG5169-01-57 06:44:00 Test Item Value Reference Range Interpretation Comments RDW (test code = RDW) 17.8 11.5-14.5 [facility] CenterLeftcyrMQJBDOYFFI1220-34-49 06:44:00 Test Item Value Reference Range Interpretation Comments MCV (test code = MCV) 73.2 80.0-98.0 [facility] HospitalEildryvKAKWDHZSDV9698-29-89 06:44:00 Test Item Value Reference Range Interpretation Comments MCH (test code = MCH) 21.9 pg 27.0-31.0 [facility] HospitalHhdzfczLLJCNNQNXQ0257-11-78 06:44:00 Test Item Value Reference Range Interpretation Comments Hct (test code = Hct) 27.2 36.0-48.0 [facility] HospitalRfwtmhmBRCPMTMQBO8280-08-21 06:44:00 Test Item Value Reference Range Interpretation Comments MCHC (test code = MCHC) 29.9 32.0-36.0 [facility] HospitalQpvselxEVACZEVHKY9875-94-29 06:44:00 Test Item Value Reference Range Interpretation Comments Platelet (test code = Platelet) 400 133-450 [facility]DkfemygENNAWLKGTP6052-71-04 06:44:00 Test Item Value Reference Range Interpretation Comments WBC (test code = WBC) 12.4 3.7-10.4 [facility] HospitalMwnabokOCWXEJOTPK2041-02-63 06:44:00 Test Item Value Reference Range Interpretation Comments RBC (test code = RBC) 3.72 4.20-5.40 [facility] HospitalXyadexlIAWNCVQIFK2339-51-30 06:44:00 Test Item Value Reference Range Interpretation Comments Hgb (test code = Hgb) 8.1 12.0-16.0 [facility] HospitalWwsbjmzSOQHCIKOHP9534-38-16 06:44:00 Test Item Value Reference Range Interpretation Comments PTT (test code = PTT) 27.2 s 22.9-35.8 [facility] DallasZnjfdulMKSEOKWGLD7954-38-03 06:44:00 Test Item Value Reference Range Interpretation Comments PT (test code = PT) 14.7 s 12.0-14.7 [facility] HospitalZerzpvfQTHMAUFXEO3502-29-38 06:44:00 Test Item Value Reference Range Interpretation Comments INR (test code = INR) 1.12 0.85-1.17 [facility] [employer] [id number] 06:44:00 Test Item Value Reference Range Interpretation Comments Antibody Scrn (test Negative (02/13/16 1:44 code = Antibody Scrn) AM) [facility] [employer] QIABNTV2021-06-59 06:44:00 Test Item Value Reference Range Interpretation Comments ABO/Rh (test code = ABO/Rh) [facility] [id number] 06:44:00 Test Item Value Reference Range Interpretation Comments CK MB Index (test 1.6 See_Comment [Automate d message] The code = CK MB Index) system w suad generated this result transmit gaye reference range : <=2.5. The reference range was not used to interpr et this result as satish l/abnormal. [facility] [employer]2016-07-03 06:44:00 Test Item Value Reference Range Interpretation Comments CK MB (test code = CK MB) 0.9 0.5-3.6 [facility] [employer]2016-07-03 06:44:00 Test Item Value Reference Range Interpretation Comments Total CK (test code = Total CK) 57 12-191 [facility] [employer]2016-07-03 06:44:00 Test Item Value Reference Range Interpretation Comments Troponin-I (test code no gt See_Comment [Auto mated message] The = Troponin-I) system which g enerated this result transmit gaye reference range : <=0.40. The reference r ozzy was not used to interpr et this result as satish l/abnormal. [employer]2016-07-03 06:44:00 Test Item Value Reference Range Interpretation Comments Albumin Lvl (test code = Albumin Lvl) 3.5 3.5-5.0 [facility] [employer]2016-07-03 06:44:00 Test Item Value Reference Range Interpretation Comments Total Protein (test code = Total 7.0 6.4-8.4 Protein) [employer]2016-07-03 06:44:00 Test Item Value Reference Range Interpretation Comments ALT (test code = ALT) 19 See_Comment [Auto mated message] The system which ge nerated this result transmit gaye reference range : <=65. The reference range was not used to interpr et this result as satish l/abnormal. [employer]2016-07-03 06:44:00 Test Item Value Reference Range Interpretation Comments AST (test code = AST) 10 See_Comment [Auto mated message] The system which ge nerated this result transmit gaye reference range : <=37. The reference range was not used to interpr et this result as satish l/abnormal. [employer]2016-07-03 06:44:00 Test Item Value Reference Range Interpretation Comments Alk Phos (test code = Alk Phos) 79 39-136 [facility]2016-07-03 06:44:00 Test Item Value Reference Range Interpretation Comments Bili Total (test code = Bili Total) 0.4 0.2-1.3 [facility]2016-07-03 06:44:00 Test Item Value Reference Range Interpretation Comments Bili Direct (test code 0.1 See_Comment [Aut omated message] The = Bili Direct) system which generated this result tra nsmitted reference range : <=0.3. The reference r ozzy was not used to int erpret this result as satish l/abnormal. [facility]2016-07-03 06:44:00 Test Item Value Reference Range Interpretation Comments Globulin (test code = Globulin) 3.5 2.0-4.0 [facility]2016-07-03 06:44:00 Test Item Value Reference Range Interpretation Comments A/G Ratio (test code = A/G Ratio) 1.0 0.7-1.6 [facility]2016-07-03 06:44:00 Test Item Value Reference Range Interpretation Comments Bili Indirect (test 0.3 See_Comment [Automa gaye message] The code = Bili Indirect) system which generated this result tra nsmitted reference range : <=1.0. The reference r ozzy was not used to int erpret this result as normal/abnormal . [facility]2016-07-03 06:44:00 Test Item Value Reference Range Interpretation Comments eGFR (test code = eGFR) 107 [facility]2016-07-03 06:44:00 Test Item Value Reference Range Interpretation Comments BUN (test code = BUN) 8 7-22 [facility]2016-07-03 06:44:00 Test Item Value Reference Range Interpretation Comments Glucose Lvl (test code = Glucose Lvl) 91 70-99 [facility]2016-07-03 06:44:00 Test Item Value Reference Range Interpretation Comments Sodium Lvl (test code = Sodium Lvl) 138 135-145 [facility]2016-07-03 06:44:00 Test Item Value Reference Range Interpretation Comments Creatinine Lvl (test code = Creatinine 0.70 0.50-1.40 Lvl) [facility]2016-07-03 06:44:00 Test Item Value Reference Range Interpretation Comments Potassium Lvl (test code = Potassium 3.3 3.5-5.1 Lvl) [facility]2016-07-03 06:44:00 Test Item Value Reference Range Interpretation Comments CO2 (test code = CO2) 25 24-32 [place] 016126-07-03 06:44:00 Test Item Value Reference Range Interpretation Comments Chloride Lvl (test code = Chloride Lvl) 106 95-109 [facility]2016-07-03 06:44:00 Test Item Value Reference Range Interpretation Comments Calcium Lvl (test code = Calcium Lvl) 8.1 8.5-10.5 [facility]2016-07-03 06:44:00 Test Item Value Reference Range Interpretation Comments AGAP (test code = AGAP) 10.3 10.0-20.0 [place] 016126-07-03 06:44:00 Test Item Value Reference Range Interpretation Comments Magnesium Lvl (test code = Magnesium 2.2 1.8-2.4 Lvl) [facility]wRQOFUIWDGBPCD5004-83-48 06:44:00 Test Item Value Reference Range Interpretation Comments S Preg (test code = S Negative *NA*(02/13/16 Preg) 1:44 AM) [facility] CenterAqcaatzNZVEXDCYNV2310-07-66 06:44:00 Test Item Value Reference Range Interpretation Comments Basophils (test code = 0.1 See_Comment [Aut omated message] The Basophils) system which ge nerated this result tra nsmitted reference range : <=1.0. The reference r ozzy was not used to int erpret this result as normal/abnormal . [facility] CenterWdtmeueCCXLPAQSGX7354-47-65 06:44:00 Test Item Value Reference Range Interpretation Comments Monocytes # (test code 0.3 See_Comment [Aut omated message] The = Monocytes #) system which generated this result tra nsmitted reference range : <=0.8. The reference r ozzy was not used to int erpret this result as normal/abnormal . [facility] CenterWwtkrgyACCBHOFOUF7711-67-68 06:44:00 Test Item Value Reference Range Interpretation Comments Eosinophils # (test code 0.1 See_Comment [A utomated message] The = Eosinophils #) system whic h generated this result tra nsmitted reference range : <=0.5. The reference r ozzy was not used to int erpret this result as normal/abnormal . [facility] CenterBgzovbbITWWYMKCAT5919-56-27 06:44:00 Test Item Value Reference Range Interpretation Comments Segs-Bands # (test code = Segs-Bands #) 9.3 1.5-8.1 [facility] CenterHmzthvtYOZXONJFFQ9860-33-29 06:44:00 Test Item Value Reference Range Interpretation Comments Lymphocytes # (test code = Lymphocytes 2.6 1.0-5.5 #) [facility] CenterDwevbeaEPFUITRIXT3752-52-42 06:44:00 Test Item Value Reference Range Interpretation Comments Basophils # (test code 0.0 See_Comment [Aut omated message] The = Basophils #) system which generated this result tra nsmitted reference range : <=0.2. The reference r ozzy was not used to int erpret this result as normal/abnormal . [facility] CenterYbnuwpyMQDHMTKQGF9773-77-24 06:44:00 Test Item Value Reference Range Interpretation Comments Microcyte (test code = 1+ *ABN*(02/13/16 1:44 Microcyte) AM) [facility] CenterExftahfIMYRKTQMTC8950-39-29 06:44:00 Test Item Value Reference Range Interpretation Comments Giant Plt (test code Moderate *ABN*(02/13/16 = Giant Plt) 1:44 AM) [facility] CenterTozohpbAYXEQZLULZ8613-54-59 06:44:00 Test Item Value Reference Range Interpretation Comments Segs (test code = Segs) 75.2 45.0-75.0 [facility] CenterWmjcpcrMRXYIUQXUT2947-84-74 06:44:00 Test Item Value Reference Range Interpretation Comments Hypochrom (test code = 1+ (02/13/16 1:44 AM) Hypochrom) [facility] CenterYgczgmtTBWFBUDXHW6039-62-48 06:44:00 Test Item Value Reference Range Interpretation Comments Eosinophils (test code = 0.7 See_Comment [A utomated message] The Eosinophils) system which ge nerated this result tra nsmitted reference range : <=4.0. The reference r ozzy was not used to int erpret this result as normal/abnormal . [facility] CenterUhqcyisMDSPXIRHSN3257-02-70 06:44:00 Test Item Value Reference Range Interpretation Comments Lymphocytes (test code = Lymphocytes) 21.3 20.0-40.0 [facility] CenterRhwlvisCDUQXMWFSL2662-47-70 06:44:00 Test Item Value Reference Range Interpretation Comments Monocytes (test code = Monocytes) 2.7 2.0-12.0 [facility] CenterStvqkewTUQGKXQXJK4811-03-41 06:44:00 Test Item Value Reference Range Interpretation Comments MPV (test code = MPV) 9.5 7.4-10.4 [facility] CenterFtxqcvbUIKFBDNYIQ8625-25-23 06:44:00 Test Item Value Reference Range Interpretation Comments RDW (test code = RDW) 17.8 11.5-14.5 [facility] CenterBjgutvnINETTSIGUW6465-71-68 06:44:00 Test Item Value Reference Range Interpretation Comments MCV (test code = MCV) 73.2 80.0-98.0 [facility] CenterRwxepbjLWJJVLLJHO2730-58-32 06:44:00 Test Item Value Reference Range Interpretation Comments MCH (test code = MCH) 21.9 pg 27.0-31.0 [facility] CenterJoqfupfSTOFTPVYEF5990-17-30 06:44:00 Test Item Value Reference Range Interpretation Comments Hct (test code = Hct) 27.2 36.0-48.0 [facility] CenterLebqgwnGHYFMDWZSQ4479-34-86 06:44:00 Test Item Value Reference Range Interpretation Comments MCHC (test code = MCHC) 29.9 32.0-36.0 [facility] CenterRgathddVGWKZVMHFZ7906-14-79 06:44:00 Test Item Value Reference Range Interpretation Comments Platelet (test code = Platelet) 400 133-450 [facility] CenterRdscbilYTPCOIOHYC8514-43-01 06:44:00 Test Item Value Reference Range Interpretation Comments WBC (test code = WBC) 12.4 3.7-10.4 [facility] CenterOyfemxkMOLMRELKXX2621-49-68 06:44:00 Test Item Value Reference Range Interpretation Comments RBC (test code = RBC) 3.72 4.20-5.40 [facility] CenterNmokaokUZVTZTLIEP4746-10-28 06:44:00 Test Item Value Reference Range Interpretation Comments Hgb (test code = Hgb) 8.1 12.0-16.0 [facility] CenterEqpwutxMLMHPINQWX1431-09-26 06:44:00 Test Item Value Reference Range Interpretation Comments PTT (test code = PTT) 27.2 s 22.9-35.8 [facility] GierxmiUBWYAETZGL7670-11-36 06:44:00 Test Item Value Reference Range Interpretation Comments PT (test code = PT) 14.7 s 12.0-14.7 [facility] HgyffhmOBBBXRQGFG5952-08-24 06:44:00 Test Item Value Reference Range Interpretation Comments INR (test code = INR) 1.12 0.85-1.17 [employer] MLWYBCG8763-30-98 06:44:00 Test Item Value Reference Range Interpretation Comments Antibody Scrn (test Negative (02/13/16 1:44 code = Antibody Scrn) AM) [facility] [employer] [id number] 06:44:00 Test Item Value Reference Range Interpretation Comments ABO/Rh (test code = ABO/Rh) A POS [facility] [employer]2016-07-03 06:44:00 Test Item Value Reference Range Interpretation Comments CK MB Index (test 1.6 See_Comment [Automate d message] The code = CK MB Index) system w [facility] generated this result transmit gaye reference range : <=2.5. The reference range was not used to interpr et this result as satish l/abnormal. [employer]2016-07-03 06:44:00 Test Item Value Reference Range Interpretation Comments CK MB (test code = CK MB) 0.9 0.5-3.6 [facility] [employer]2016-07-03 06:44:00 Test Item Value Reference Range Interpretation Comments Total CK (test code = Total CK) 57 12-191 [facility] [employer]2016-07-03 06:44:00 Test Item Value Reference Range Interpretation Comments Troponin-I (test code no gt See_Comment [Auto mated message] The = Troponin-I) system which g enerated this result transmit gaye reference range : <=0.40. The reference r ozzy was not used to interpr et this result as satish l/abnormal. [employer] [id number] 06:44:00 Test Item Value Reference Range Interpretation Comments Albumin Lvl (test code = Albumin Lvl) 3.5 3.5-5.0 [employer] [id number] 06:44:00 Test Item Value Reference Range Interpretation Comments Total Protein (test code = Total 7.0 6.4-8.4 Protein) [facility] DallasNeurodynATRIUM HEALTHHJUHB5280-75-96 06:44:00 Test Item Value Reference Range Interpretation Comments ALT (test code = ALT) 19 See_Comment [Auto mated message] The system which ge nerated this result transmit gaye reference range : <=65. The reference range was not used to interpr et this result as satish l/abnormal. [facility]Collect[facility] IP [id number] 06:44:00 Test Item Value Reference Range Interpretation Comments AST (test code = AST) 10 See_Comment [Auto mated message] The system which ge nerated this result transmit gaye reference range : <=37. The reference range was not used to interpr et this result as satish l/abnormal. [facility] [id number] 06:44:00 Test Item Value Reference Range Interpretation Comments Alk Phos (test code = Alk Phos) 79 39-136 [facility] IP [id number] 06:44:00 Test Item Value Reference Range Interpretation Comments Bili Total (test code = Bili Total) 0.4 0.2-1.3 [facility] [id number] 06:44:00 Test Item Value Reference Range Interpretation Comments Bili Direct (test code 0.1 See_Comment [Aut omated message] The = Bili Direct) system which generated this result tra nsmitted reference range : <=0.3. The reference r ozzy was not used to int erpret this result as satish l/abnormal. [facility] [id number] 06:44:00 Test Item Value Reference Range Interpretation Comments Globulin (test code = Globulin) 3.5 2.0-4.0 [facility] [id number] 06:44:00 Test Item Value Reference Range Interpretation Comments A/G Ratio (test code = A/G Ratio) 1.0 0.7-1.6 [facility] [id number] 06:44:00 Test Item Value Reference Range Interpretation Comments Bili Indirect (test 0.3 See_Comment [Automa gaye message] The code = Bili Indirect) system which generated this result tra nsmitted reference range : <=1.0. The reference r ozzy was not used to int erpret this result as normal/abnormal . [facility]2016-07-03 06:44:00 Test Item Value Reference Range Interpretation Comments eGFR (test code = eGFR) 107 [facility]2016-07-03 06:44:00 Test Item Value Reference Range Interpretation Comments BUN (test code = BUN) 8 7-22 [facility]2016-07-03 06:44:00 Test Item Value Reference Range Interpretation Comments Glucose Lvl (test code = Glucose Lvl) 91 70-99 [facility]2016-07-03 06:44:00 Test Item Value Reference Range Interpretation Comments Sodium Lvl (test code = Sodium Lvl) 138 135-145 [facility]2016-07-03 06:44:00 Test Item Value Reference Range Interpretation Comments Creatinine Lvl (test code = Creatinine 0.70 0.50-1.40 Lvl) [facility]2016-07-03 06:44:00 Test Item Value Reference Range Interpretation Comments Potassium Lvl (test code = Potassium 3.3 3.5-5.1 Lvl) [facility]2016-07-03 06:44:00 Test Item Value Reference Range Interpretation Comments CO2 (test code = CO2) 25 24-32 [facility]2016-07-03 06:44:00 Test Item Value Reference Range Interpretation Comments Chloride Lvl (test code = Chloride Lvl) 106 95-109 [facility]2016-07-03 06:44:00 Test Item Value Reference Range Interpretation Comments Calcium Lvl (test code = Calcium Lvl) 8.1 8.5-10.5 [facility]2016-07-03 06:44:00 Test Item Value Reference Range Interpretation Comments AGAP (test code = AGAP) 10.3 10.0-20.0 [facility]2016-07-03 06:44:00 Test Item Value Reference Range Interpretation Comments Magnesium Lvl (test code = Magnesium 2.2 1.8-2.4 Lvl) [facility]RkkcyhvWFPQKMVZGXDYY5164-79-59 06:44:00 Test Item Value Reference Range Interpretation Comments S Preg (test code = S Negative *NA*(02/13/16 Preg) 1:44 AM) [facility]igSTVISPSBFT8353-[facility] 06:44:00 Test Item Value Reference Range Interpretation Comments Basophils (test code = 0.1 See_Comment [Aut omated message] The Basophils) system which ge nerated this result tra nsmitted reference range : <=1.0. The reference r ozzy was not used to int erpret this result as normal/abnormal . [facility] CenterIdhdectKAUMGVJGMC5721-95-22 06:44:00 Test Item Value Reference Range Interpretation Comments Monocytes # (test code 0.3 See_Comment [Aut omated message] The = Monocytes #) system which generated this result tra nsmitted reference range : <=0.8. The reference r ozzy was not used to int erpret this result as normal/abnormal . [facility] CenterPegrupiOXXHAVDMCQ3587-01-84 06:44:00 Test Item Value Reference Range Interpretation Comments Eosinophils # (test code 0.1 See_Comment [A utomated message] The = Eosinophils #) system whic h generated this result tra nsmitted reference range : <=0.5. The reference r ozzy was not used to int erpret this result as normal/abnormal . [facility] CenterKafprwxYOIKXAJDMJ6537-64-66 06:44:00 Test Item Value Reference Range Interpretation Comments Segs-Bands # (test code = Segs-Bands #) 9.3 1.5-8.1 [facility] CenterQljvpevTKJDPYJKOB6525-87-62 06:44:00 Test Item Value Reference Range Interpretation Comments Lymphocytes # (test code = Lymphocytes 2.6 1.0-5.5 #) [facility] CenterKhqwturQFFXOOSFEJ2964-84-79 06:44:00 Test Item Value Reference Range Interpretation Comments Basophils # (test code 0.0 See_Comment [Aut omated message] The = Basophils #) system which generated this result tra nsmitted reference range : <=0.2. The reference r ozzy was not used to int erpret this result as normal/abnormal . [facility] CenterAlwoxvfXJIVDBZOQQ7434-12-83 06:44:00 Test Item Value Reference Range Interpretation Comments Microcyte (test code = 1+ *ABN*(02/13/16 1:44 Microcyte) AM) [facility] CenterWzlnmgjTTMXZQAUEO8829-40-66 06:44:00 Test Item Value Reference Range Interpretation Comments Giant Plt (test code Moderate *ABN*(02/13/16 = Giant Plt) 1:44 AM) [facility] CenterCywevzkPCWLVPNNQD3323-71-64 06:44:00 Test Item Value Reference Range Interpretation Comments Segs (test code = Segs) 75.2 45.0-75.0 [facility] CenterCfecfrmLJHEOIHEUJ0853-07-76 06:44:00 Test Item Value Reference Range Interpretation Comments Hypochrom (test code = 1+ (02/13/16 1:44 AM) Hypochrom) [facility] CenterGbflkcxGBMXCBNNEV1864-69-68 06:44:00 Test Item Value Reference Range Interpretation Comments Eosinophils (test code = 0.7 See_Comment [A utomated message] The Eosinophils) system which ge nerated this result tra nsmitted reference range : <=4.0. The reference r ozzy was not used to int erpret this result as normal/abnormal . [facility] CenterFmcswffBWWRUHHVHD4786-67-26 06:44:00 Test Item Value Reference Range Interpretation Comments Lymphocytes (test code = Lymphocytes) 21.3 20.0-40.0 [facility] CenterXjufkjuHRAZMKTSXW6401-49-06 06:44:00 Test Item Value Reference Range Interpretation Comments Monocytes (test code = Monocytes) 2.7 2.0-12.0 [facility] CenterBkqcbmbFAUOYWDYCY2018-38-72 06:44:00 Test Item Value Reference Range Interpretation Comments MPV (test code = MPV) 9.5 7.4-10.4 [facility] CenterFiockrySPFICVXKPA4457-85-45 06:44:00 Test Item Value Reference Range Interpretation Comments RDW (test code = RDW) 17.8 11.5-14.5 [facility] CenterTvsrcerPXUDYZZCVE8835-16-05 06:44:00 Test Item Value Reference Range Interpretation Comments MCV (test code = MCV) 73.2 80.0-98.0 [facility] CenterHbzcbntGAILGLGKIR8397-22-91 06:44:00 Test Item Value Reference Range Interpretation Comments MCH (test code = MCH) 21.9 pg 27.0-31.0 [facility] CenterVjpdgxcCUMQZCRNRY9836-93-01 06:44:00 Test Item Value Reference Range Interpretation Comments Hct (test code = Hct) 27.2 36.0-48.0 [facility] CenterLgbutxeWFXERJKBXP0783-91-39 06:44:00 Test Item Value Reference Range Interpretation Comments MCHC (test code = MCHC) 29.9 32.0-36.0 [place] 997126-07-03 06:44:00 Test Item Value Reference Range Interpretation Comments Platelet (test code = Platelet) 400 133-450 [facility] CenterMdghqqcJQHDMMSCNO1915-29-41 06:44:00 Test Item Value Reference Range Interpretation Comments WBC (test code = WBC) 12.4 3.7-10.4 [facility] CenterAjpbajgPRNXGDKFKN6171-39-43 06:44:00 Test Item Value Reference Range Interpretation Comments RBC (test code = RBC) 3.72 4.20-5.40 [facility] CenterJeujjkiPOYGPAXCQO9016-71-34 06:44:00 Test Item Value Reference Range Interpretation Comments Hgb (test code = Hgb) 8.1 12.0-16.0 [facility] CenterGkcfstqIXDPEUQQNZ3548-13-76 06:44:00 Test Item Value Reference Range Interpretation Comments PTT (test code = PTT) 27.2 s 22.9-35.8 [facility] CenterAqljabnVBVIGJPLPN9998-30-36 06:44:00 Test Item Value Reference Range Interpretation Comments PT (test code = PT) 14.7 s 12.0-14.7 [facility] CenterZmmdpkbTUWZJDQSUI4594-08-63 06:44:00 Test Item Value Reference Range Interpretation Comments INR (test code = INR) 1.12 0.85-1.17 [facility] CenterMgozwhsYIMOKIBOHZ3922-42-85 06:44:00 Test Item Value Reference Range Interpretation Comments Eosinophils # (test code 0.1 See_Comment [A utomated message] The = Eosinophils #) system whic h generated this result tra nsmitted reference range : <=0.5. The reference r ozzy was not used to int erpret this result as normal/abnormal . [facility] CenterCtybhbfGPXAOHDTAY9822-86-32 06:44:00 Test Item Value Reference Range Interpretation Comments Segs-Bands # (test code = Segs-Bands #) 9.3 1.5-8.1 [facility] CenterYaesfrxBPKHEJXRGT5916-48-54 06:44:00 Test Item Value Reference Range Interpretation Comments Lymphocytes # (test code = Lymphocytes 2.6 1.0-5.5 #) [facility] CenterFuobfiwIJNDIUPDCC4987-74-09 06:44:00 Test Item Value Reference Range Interpretation Comments Basophils # (test code 0.0 See_Comment [Aut omated message] The = Basophils #) system which generated this result tra nsmitted reference range : <=0.2. The reference r ozzy was not used to int erpret this result as normal/abnormal . [facility] CenterMwhlwpnBHGIWDKSHX6838-75-46 06:44:00 Test Item Value Reference Range Interpretation Comments Microcyte (test code = 1+ *ABN*(02/13/16 1:44 Microcyte) AM) [facility] CenterApqyybiIUKZVNBSRG0492-43-92 06:44:00 Test Item Value Reference Range Interpretation Comments Giant Plt (test code Moderate *ABN*(02/13/16 = Giant Plt) 1:44 AM) [facility] CenterJnilnhyCIFTWTPZOR3796-29-28 06:44:00 Test Item Value Reference Range Interpretation Comments Segs (test code = Segs) 75.2 45.0-75.0 [facility] CenterNbesrrmVFLRPFYERH2457-82-41 06:44:00 Test Item Value Reference Range Interpretation Comments Hypochrom (test code = 1+ (02/13/16 1:44 AM) Hypochrom) [facility] CenterTzmgjxlTILEHVWEZX2313-76-77 06:44:00 Test Item Value Reference Range Interpretation Comments Eosinophils (test code = 0.7 See_Comment [A utomated message] The Eosinophils) system which ge nerated this result tra nsmitted reference range : <=4.0. The reference r ozzy was not used to int erpret this result as normal/abnormal . [facility] CenterAwuunrbROBWSPUCTG7737-03-44 06:44:00 Test Item Value Reference Range Interpretation Comments Lymphocytes (test code = Lymphocytes) 21.3 20.0-40.0 [facility] CenterWxzscyuJPKEGBPKNG2643-35-26 06:44:00 Test Item Value Reference Range Interpretation Comments Monocytes (test code = Monocytes) 2.7 2.0-12.0 [facility] CenterPwflwzmPJMNUDNBWJ9823-10-15 06:44:00 Test Item Value Reference Range Interpretation Comments MPV (test code = MPV) 9.5 7.4-10.4 [facility] CenterIynvlzuJOFPDNKLHK9001-55-67 06:44:00 Test Item Value Reference Range Interpretation Comments RDW (test code = RDW) 17.8 11.5-14.5 [facility] CenterYhcwnlrUIVBCNXGDW5035-34-45 06:44:00 Test Item Value Reference Range Interpretation Comments MCV (test code = MCV) 73.2 80.0-98.0 [facility] CenterXnzjpmzMMGQEFGUWA1277-17-99 06:44:00 Test Item Value Reference Range Interpretation Comments MCH (test code = MCH) 21.9 pg 27.0-31.0 [facility]KwhhqhrGDYUBATIDP8651-87-28 06:44:00 Test Item Value Reference Range Interpretation Comments Hct (test code = Hct) 27.2 36.0-48.0 [facility] HospitalCgceysjQYYCMJAIDC8819-96-14 06:44:00 Test Item Value Reference Range Interpretation Comments MCHC (test code = MCHC) 29.9 32.0-36.0 [facility] DallasPyxxuqtIOUYPJDZVE7473-32-24 06:44:00 Test Item Value Reference Range Interpretation Comments Platelet (test code = Platelet) 400 133-450 [facility] DallasYgcgcmsCBUEPFEMQH9085-90-59 06:44:00 Test Item Value Reference Range Interpretation Comments WBC (test code = WBC) 12.4 3.7-10.4 [facility] DallasZzpdooaNJZAWYGNPP9666-43-95 06:44:00 Test Item Value Reference Range Interpretation Comments RBC (test code = RBC) 3.72 4.20-5.40 [facility] DallasUpciifvUFMADPAMRV8384-86-77 06:44:00 Test Item Value Reference Range Interpretation Comments Hgb (test code = Hgb) 8.1 12.0-16.0 [facility] DallasPzdlgkzRCOISYHNEK4252-28-84 06:44:00 Test Item Value Reference Range Interpretation Comments PTT (test code = PTT) 27.2 s 22.9-35.8 [facility] DallasRhqwqspDTHZZQFCVR7518-00-23 06:44:00 Test Item Value Reference Range Interpretation Comments PT (test code = PT) 14.7 s 12.0-14.7 [facility] DallasJdaqeyqQJRHSZMOIL5278-88-32 06:44:00 Test Item Value Reference Range Interpretation Comments INR (test code = INR) 1.12 0.85-1.17 [employer] [id number] 06:44:00 Test Item Value Reference Range Interpretation Comments Antibody Scrn (test Negative (02/13/16 1:44 code = Antibody Scrn) AM) [facility] [employer] [id number] 06:44:00 Test Item Value Reference Range Interpretation Comments ABO/Rh (test code = ABO/Rh) A POS [facility] [employer]annCARDIAC [id number] 06:44:00 Test Item Value Reference Range Interpretation Comments CK MB Index (test 1.6 See_Comment [Automate d message] The code = CK MB Index) system w [facility] generated this result transmit gaye reference range : <=2.5. The reference range was not used to interpr et this result as satish l/abnormal. [facility] [employer] [id number] 06:44:00 Test Item Value Reference Range Interpretation Comments CK MB (test code = CK MB) 0.9 0.5-3.6 [facility] DallasOneTouchEMR LHUTQQA8732-48-55 06:44:00 Test Item Value Reference Range Interpretation Comments Total CK (test code = Total CK) 57 12-191 [facility] DallasOneTouchEMR XSOAVRH1268-20-78 06:44:00 Test Item Value Reference Range Interpretation Comments Troponin-I (test code no gt See_Comment [Auto mated message] The = Troponin-I) system which g enerated this result transmit gaye reference range : <=0.40. The reference r ozzy was not used to interpr et this result as satish l/abnormal. [facility] [employer] [id number] 06:44:00 Test Item Value Reference Range Interpretation Comments Albumin Lvl (test code = Albumin Lvl) 3.5 3.5-5.0 [facility] [employer] [id number] 06:44:00 Test Item Value Reference Range Interpretation Comments Total Protein (test code = Total 7.0 6.4-8.4 Protein) [facility] [employer] [id number] 06:44:00 Test Item Value Reference Range Interpretation Comments ALT (test code = ALT) 19 See_Comment [Auto mated message] The system which ge nerated this result transmit gaye reference range : <=65. The reference range was not used to interpr et this result as satish l/abnormal. [facility] [employer] [id number] 06:44:00 Test Item Value Reference Range Interpretation Comments AST (test code = AST) 10 See_Comment [Auto mated message] The system which ge nerated this result transmit gaye reference range : <=37. The reference range was not used to interpr et this result as satish l/abnormal. [facility] [employer] [id number] 06:44:00 Test Item Value Reference Range Interpretation Comments Alk Phos (test code = Alk Phos) 79 39-136 [facility]2016-07-03 06:44:00 Test Item Value Reference Range Interpretation Comments Bili Total (test code = Bili Total) 0.4 0.2-1.3 [facility]2016-07-03 06:44:00 Test Item Value Reference Range Interpretation Comments Bili Direct (test code 0.1 See_Comment [Aut omated message] The = Bili Direct) system which generated this result tra nsmitted reference range : <=0.3. The reference r ozzy was not used to int erpret this result as satish l/abnormal. [facility]2016-07-03 06:44:00 Test Item Value Reference Range Interpretation Comments Globulin (test code = Globulin) 3.5 2.0-4.0 [facility]2016-07-03 06:44:00 Test Item Value Reference Range Interpretation Comments A/G Ratio (test code = A/G Ratio) 1.0 0.7-1.6 [place] [id number] 06:44:00 Test Item Value Reference Range Interpretation Comments Bili Indirect (test 0.3 See_Comment [Automa gaye message] The code = Bili Indirect) system which generated this result tra nsmitted reference range : <=1.0. The reference r zozy was not used to int erpret this result as normal/abnormal . [facility]2016-07-03 06:44:00 Test Item Value Reference Range Interpretation Comments eGFR (test code = eGFR) 107 [facility]2016-07-03 06:44:00 Test Item Value Reference Range Interpretation Comments BUN (test code = BUN) 8 7-22 [place] 016126-07-03 06:44:00 Test Item Value Reference Range Interpretation Comments Glucose Lvl (test code = Glucose Lvl) 91 70-99 [facility]2016-07-03 06:44:00 Test Item Value Reference Range Interpretation Comments Sodium Lvl (test code = Sodium Lvl) 138 135-145 [facility]2016-07-03 06:44:00 Test Item Value Reference Range Interpretation Comments Creatinine Lvl (test code = Creatinine 0.70 0.50-1.40 Lvl) [facility]2016-07-03 06:44:00 Test Item Value Reference Range Interpretation Comments Potassium Lvl (test code = Potassium 3.3 3.5-5.1 Lvl) [facility]2016-07-03 06:44:00 Test Item Value Reference Range Interpretation Comments CO2 (test code = CO2) 25 24-32 [facility]2016-07-03 06:44:00 Test Item Value Reference Range Interpretation Comments Chloride Lvl (test code = Chloride Lvl) 106 95-109 [facility]2016-07-03 06:44:00 Test Item Value Reference Range Interpretation Comments Calcium Lvl (test code = Calcium Lvl) 8.1 8.5-10.5 [facility]2016-07-03 06:44:00 Test Item Value Reference Range Interpretation Comments AGAP (test code = AGAP) 10.3 10.0-20.0 [facility]2016-07-03 06:44:00 Test Item Value Reference Range Interpretation Comments Magnesium Lvl (test code = Magnesium 2.2 1.8-2.4 Lvl) [id number] 06:44:00 Test Item Value Reference Range Interpretation Comments S Preg (test code = S Negative *NA*(02/13/16 Preg) 1:44 AM) [facility]IrwurcvRYMZDDIXRD5875-89-06 06:44:00 Test Item Value Reference Range Interpretation Comments Basophils (test code = 0.1 See_Comment [Aut omated message] The Basophils) system which ge nerated this result tra nsmitted reference range : <=1.0. The reference r ozzy was not used to int erpret this result as normal/abnormal . [facility] CenterDvjwehnQQTVHLBSZY1563-25-16 06:44:00 Test Item Value Reference Range Interpretation Comments Monocytes # (test code 0.3 See_Comment [Aut omated message] The = Monocytes #) system which generated this result tra nsmitted reference range : <=0.8. The reference r ozzy was not used to int erpret this result as normal/abnormal . [facility] [id number] 06:44:00 Test Item Value Reference Range Interpretation Comments Antibody Scrn (test Negative (02/13/16 1:44 code = Antibody Scrn) AM) [facility] [id number] 06:44:00 Test Item Value Reference Range Interpretation Comments ABO/Rh (test code = ABO/Rh) A [facility] [id number] 06:44:00 Test Item Value Reference Range Interpretation Comments CK MB Index (test 1.6 See_Comment [Automate d message] The code = CK MB Index) system w [facility] generated this result transmit gaye reference range : <=2.5. The reference range was not used to interpr et this result as satish l/abnormal. [facility] [employer] [id number] 06:44:00 Test Item Value Reference Range Interpretation Comments CK MB (test code = CK MB) 0.9 0.5-3.6 [facility] [id number] 06:44:00 Test Item Value Reference Range Interpretation Comments Total CK (test code = Total CK) 57 12-191 [facility] [employer] [id number] 06:44:00 Test Item Value Reference Range Interpretation Comments Troponin-I (test code no gt See_Comment [Auto mated message] The = Troponin-I) system which g enerated this result transmit gaye reference range : <=0.40. The reference r ozzy was not used to interpr et this result as satish l/abnormal. [employer] [id number] 06:44:00 Test Item Value Reference Range Interpretation Comments Albumin Lvl (test code = Albumin Lvl) 3.5 3.5-5.0 [facility] [id number] 06:44:00 Test Item Value Reference Range Interpretation Comments Total Protein (test code = Total 7.0 6.4-8.4 Protein) [facility] [id number] 06:44:00 Test Item Value Reference Range Interpretation Comments ALT (test code = ALT) 19 See_Comment [Auto mated message] The system which ge nerated this result transmit gaye reference range : <=65. The reference range was not used to interpr et this result as satish l/abnormal. [employer] [id number] 06:44:00 Test Item Value Reference Range Interpretation Comments AST (test code = AST) 10 See_Comment [Auto mated message] The system which ge nerated this result transmit gaye reference range : <=37. The reference range was not used to interpr et this result as satish l/abnormal. [place] 016126-07-03 06:44:00 Test Item Value Reference Range Interpretation Comments Alk Phos (test code = Alk Phos) 79 39-136 [place] 016126-07-03 06:44:00 Test Item Value Reference Range Interpretation Comments Bili Total (test code = Bili Total) 0.4 0.2-1.3 [place] 016126-07-03 06:44:00 Test Item Value Reference Range Interpretation Comments Bili Direct (test code 0.1 See_Comment [Aut omated message] The = Bili Direct) system which generated this result tra nsmitted reference range : <=0.3. The reference r ozzy was not used to int erpret this result as satish l/abnormal. [facility]2016-07-03 06:44:00 Test Item Value Reference Range Interpretation Comments Globulin (test code = Globulin) 3.5 2.0-4.0 [facility]2016-07-03 06:44:00 Test Item Value Reference Range Interpretation Comments A/G Ratio (test code = A/G Ratio) 1.0 0.7-1.6 [facility]2016-07-03 06:44:00 Test Item Value Reference Range Interpretation Comments Bili Indirect (test 0.3 See_Comment [Automa gaye message] The code = Bili Indirect) system which generated this result tra nsmitted reference range : <=1.0. The reference r ozzy was not used to int erpret this result as normal/abnormal . [facility]2016-07-03 06:44:00 Test Item Value Reference Range Interpretation Comments eGFR (test code = eGFR) 107 [facility]2016-07-03 06:44:00 Test Item Value Reference Range Interpretation Comments BUN (test code = BUN) 8 7-22 [facility]2016-07-03 06:44:00 Test Item Value Reference Range Interpretation Comments Glucose Lvl (test code = Glucose Lvl) 91 70-99 [place] 016126-07-03 06:44:00 Test Item Value Reference Range Interpretation Comments Sodium Lvl (test code = Sodium Lvl) 138 135-145 [facility]2016-07-03 06:44:00 Test Item Value Reference Range Interpretation Comments Creatinine Lvl (test code = Creatinine 0.70 0.50-1.40 Lvl) [facility]2016-07-03 06:44:00 Test Item Value Reference Range Interpretation Comments Potassium Lvl (test code = Potassium 3.3 3.5-5.1 Lvl) [facility]2016-07-03 06:44:00 Test Item Value Reference Range Interpretation Comments CO2 (test code = CO2) 25 24-32 [facility]2016-07-03 06:44:00 Test Item Value Reference Range Interpretation Comments Chloride Lvl (test code = Chloride Lvl) 106 95-109 [facility]2016-07-03 06:44:00 Test Item Value Reference Range Interpretation Comments Calcium Lvl (test code = Calcium Lvl) 8.1 8.5-10.5 [facility]2016-07-03 06:44:00 Test Item Value Reference Range Interpretation Comments AGAP (test code = AGAP) 10.3 10.0-20.0 [facility]2016-07-03 06:44:00 Test Item Value Reference Range Interpretation Comments Magnesium Lvl (test code = Magnesium 2.2 1.8-2.4 Lvl) [facility]burgHyslhqyEXEVGIQNZNOIK8252-15-25 06:44:00 Test Item Value Reference Range Interpretation Comments S Preg (test code = S Negative *NA*(02/13/16 Preg) 1:44 AM) [facility] CenterXnedbabZIHQZIXKVE2766-15-55 06:44:00 Test Item Value Reference Range Interpretation Comments Basophils (test code = 0.1 See_Comment [Aut omated message] The Basophils) system which ge nerated this result tra nsmitted reference range : <=1.0. The reference r ozzy was not used to int erpret this result as normal/abnormal . [facility] CenterJkvuiarISYVLRCVWH0816-85-58 06:44:00 Test Item Value Reference Range Interpretation Comments Monocytes # (test code 0.3 See_Comment [Aut omated message] The = Monocytes #) system which generated this result tra nsmitted reference range : <=0.8. The reference r ozzy was not used to int erpret this result as normal/abnormal . [facility] CenterQtzrukdLBTCYINZSM0905-94-18 06:44:00 Test Item Value Reference Range Interpretation Comments Eosinophils # (test code 0.1 See_Comment [A utomated message] The = Eosinophils #) system whic h generated this result tra nsmitted reference range : <=0.5. The reference r ozzy was not used to int erpret this result as normal/abnormal . [facility] CenterOplatngLYJUXKXLMR7556-53-50 06:44:00 Test Item Value Reference Range Interpretation Comments Segs-Bands # (test code = Segs-Bands #) 9.3 1.5-8.1 [facility] CenterNoimsniXULUESZFVZ4530-36-87 06:44:00 Test Item Value Reference Range Interpretation Comments Lymphocytes # (test code = Lymphocytes 2.6 1.0-5.5 #) [facility] Cent[id number] 06:44:00 Test Item Value Reference Range Interpretation Comments Basophils # (test code 0.0 See_Comment [Aut omated message] The = Basophils #) system which generated this result tra nsmitted reference range : <=0.2. The reference r ozzy was not used to int erpret this result as normal/abnormal . [facility] CenterPaofqyjNHELVTSWTY0070-30-88 06:44:00 Test Item Value Reference Range Interpretation Comments Microcyte (test code = 1+ *ABN*(02/13/16 1:44 Microcyte) AM) [facility] CenterFjlkmvfBXUEHPIASB1691-73-30 06:44:00 Test Item Value Reference Range Interpretation Comments Giant Plt (test code Moderate *ABN*(02/13/16 = Giant Plt) 1:44 AM) [facility] CenterZbwoxkrKYHIKJOIGO5389-67-02 06:44:00 Test Item Value Reference Range Interpretation Comments Segs (test code = Segs) 75.2 45.0-75.0 [facility] CenterWmjonuaCCEMFYZHRB3884-81-42 06:44:00 Test Item Value Reference Range Interpretation Comments Hypochrom (test code = 1+ (02/13/16 1:44 AM) Hypochrom) [facility] CenterJmleosxYGQKNDSCMY3894-45-74 06:44:00 Test Item Value Reference Range Interpretation Comments Eosinophils (test code = 0.7 See_Comment [A utomated message] The Eosinophils) system which ge nerated this result tra nsmitted reference range : <=4.0. The reference r ozzy was not used to int erpret this result as normal/abnormal . [facility] CenterHpqszijAENPBDANSJ4364-81-15 06:44:00 Test Item Value Reference Range Interpretation Comments Lymphocytes (test code = Lymphocytes) 21.3 20.0-40.0 [facility] CenterBicemcvFZMYKBRSVJ1996-13-97 06:44:00 Test Item Value Reference Range Interpretation Comments Monocytes (test code = Monocytes) 2.7 2.0-12.0 [facility] CenterZvdydfpFZRGUUQXVI6292-84-10 06:44:00 Test Item Value Reference Range Interpretation Comments MPV (test code = MPV) 9.5 7.4-10.4 [facility] CenterAimfjwiZSVJLFOCSC0814-57-58 06:44:00 Test Item Value Reference Range Interpretation Comments RDW (test code = RDW) 17.8 11.5-14.5 [facility] CenterJckgvwnEKKLFQBKNS1786-56-37 06:44:00 Test Item Value Reference Range Interpretation Comments MCV (test code = MCV) 73.2 80.0-98.0 [facility] CenterUicongmGRTORWWQSJ5958-44-57 06:44:00 Test Item Value Reference Range Interpretation Comments MCH (test code = MCH) 21.9 pg 27.0-31.0 [facility] CenterMgkexqcAQXWMIHSME0494-08-67 06:44:00 Test Item Value Reference Range Interpretation Comments Hct (test code = Hct) 27.2 36.0-48.0 [facility] CenterWbzjsofVKINDMEMTW7583-82-55 06:44:00 Test Item Value Reference Range Interpretation Comments MCHC (test code = MCHC) 29.9 32.0-36.0 [facility] CenterWkbdywbCVWLWRQUOK9657-82-42 06:44:00 Test Item Value Reference Range Interpretation Comments Platelet (test code = Platelet) 400 133-450 [facility] CenterAnxyqlaVCAFRQPMTP2568-31-46 06:44:00 Test Item Value Reference Range Interpretation Comments WBC (test code = WBC) 12.4 3.7-10.4 [facility] CenterUnzufkrKTYBUZJTCD8807-41-67 06:44:00 Test Item Value Reference Range Interpretation Comments RBC (test code = RBC) 3.72 4.20-5.40 [facility] CenterQiwsitbRVIVVQFRFR9415-46-46 06:44:00 Test Item Value Reference Range Interpretation Comments Hgb (test code = Hgb) 8.1 12.0-16.0 [facility] ZpnwjmkSDUDHFESKP9146-83-19 06:44:00 Test Item Value Reference Range Interpretation Comments PTT (test code = PTT) 27.2 s 22.9-35.8 [facility] NgmsmmxAJTXYDMSJA1126-33-17 06:44:00 Test Item Value Reference Range Interpretation Comments PT (test code = PT) 14.7 s 12.0-14.7 [facility] XqvixhiFHTSBWKMSJ0183-47-26 06:44:00 Test Item Value Reference Range Interpretation Comments INR (test code = INR) 1.12 0.85-1.17 [employer] [id number] 06:44:00 Test Item Value Reference Range Interpretation Comments Antibody Scrn (test Negative (02/13/16 1:44 code = Antibody Scrn) AM) [facility] [employer] [id number] 06:44:00 Test Item Value Reference Range Interpretation Comments ABO/Rh (test code = ABO/Rh) A POS [employer]2016-07-03 06:44:00 Test Item Value Reference Range Interpretation Comments CK MB Index (test 1.6 See_Comment [Automate d message] The code = CK MB Index) system w [facility] generated this result transmit gaye reference range : <=2.5. The reference range was not used to interpr et this result as satish l/abnormal. [employer]2016-07-03 06:44:00 Test Item Value Reference Range Interpretation Comments CK MB (test code = CK MB) 0.9 0.5-3.6 [facility] [employer]2016-07-03 06:44:00 Test Item Value Reference Range Interpretation Comments Total CK (test code = Total CK) 57 12-191 [facility] [employer]2016-07-03 06:44:00 Test Item Value Reference Range Interpretation Comments Troponin-I (test code no gt See_Comment [Auto mated message] The = Troponin-I) system which g enerated this result transmit gaye reference range : <=0.40. The reference r zozy was not used to interpr et this result as satish l/abnormal. [employer] [id number] 06:44:00 Test Item Value Reference Range Interpretation Comments Albumin Lvl (test code = Albumin Lvl) 3.5 3.5-5.0 [facility] DallasNeurodynATRIUM [id number] 06:44:00 Test Item Value Reference Range Interpretation Comments Total Protein (test code = Total 7.0 6.4-8.4 Protein) [facility]2016-07-03 06:44:00 Test Item Value Reference Range Interpretation Comments ALT (test code = ALT) 19 See_Comment [Auto mated message] The system which ge nerated this result transmit gaye reference range : <=65. The reference range was not used to interpr et this result as satish l/abnormal. [facility] Dallas[facility] IP [id number] 06:44:00 Test Item Value Reference Range Interpretation Comments AST (test code = AST) 10 See_Comment [Auto mated message] The system which ge nerated this result transmit gaye reference range : <=37. The reference range was not used to interpr et this result as satish l/abnormal. [facility] IP [id number] 06:44:00 Test Item Value Reference Range Interpretation Comments Alk Phos (test code = Alk Phos) 79 39-136 [facility] IP [id number] 06:44:00 Test Item Value Reference Range Interpretation Comments Bili Total (test code = Bili Total) 0.4 0.2-1.3 [place] 016126-07-03 06:44:00 Test Item Value Reference Range Interpretation Comments Bili Direct (test code 0.1 See_Comment [Aut omated message] The = Bili Direct) system which generated this result tra nsmitted reference range : <=0.3. The reference r ozzy was not used to int erpret this result as satish l/abnormal. [facility] IP [id number] 06:44:00 Test Item Value Reference Range Interpretation Comments Globulin (test code = Globulin) 3.5 2.0-4.0 [facility] [id number] 06:44:00 Test Item Value Reference Range Interpretation Comments A/G Ratio (test code = A/G Ratio) 1.0 0.7-1.6 [facility] IP [id number] 06:44:00 Test Item Value Reference Range Interpretation Comments Bili Indirect (test 0.3 See_Comment [Automa gaye message] The code = Bili Indirect) system which generated this result tra nsmitted reference range : <=1.0. The reference r ozzy was not used to int erpret this result as normal/abnormal . [facility]2016-07-03 06:44:00 Test Item Value Reference Range Interpretation Comments eGFR (test code = eGFR) 107 [facility]2016-07-03 06:44:00 Test Item Value Reference Range Interpretation Comments BUN (test code = BUN) 8 7-22 [facility]2016-07-03 06:44:00 Test Item Value Reference Range Interpretation Comments Glucose Lvl (test code = Glucose Lvl) 91 70-99 [facility]2016-07-03 06:44:00 Test Item Value Reference Range Interpretation Comments Sodium Lvl (test code = Sodium Lvl) 138 135-145 [facility]2016-07-03 06:44:00 Test Item Value Reference Range Interpretation Comments Creatinine Lvl (test code = Creatinine 0.70 0.50-1.40 Lvl) [facility]2016-07-03 06:44:00 Test Item Value Reference Range Interpretation Comments Potassium Lvl (test code = Potassium 3.3 3.5-5.1 Lvl) [facility]2016-07-03 06:44:00 Test Item Value Reference Range Interpretation Comments CO2 (test code = CO2) 25 24-32 [facility]2016-07-03 06:44:00 Test Item Value Reference Range Interpretation Comments Chloride Lvl (test code = Chloride Lvl) 106 95-109 [facility]2016-07-03 06:44:00 Test Item Value Reference Range Interpretation Comments Calcium Lvl (test code = Calcium Lvl) 8.1 8.5-10.5 [facility]2016-07-03 06:44:00 Test Item Value Reference Range Interpretation Comments AGAP (test code = AGAP) 10.3 10.0-20.0 [facility]2016-07-03 06:44:00 Test Item Value Reference Range Interpretation Comments Magnesium Lvl (test code = Magnesium 2.2 1.8-2.4 Lvl) [facility] Hosp[id number] 06:44:00 Test Item Value Reference Range Interpretation Comments S Preg (test code = S Negative *NA*(02/13/16 Preg) 1:44 AM) [facility] CenterPwwffknNVZVEPIBPK1511-83-34 06:44:00 Test Item Value Reference Range Interpretation Comments Basophils (test code = 0.1 See_Comment [Aut omated message] The Basophils) system which ge nerated this result tra nsmitted reference range : <=1.0. The reference r ozzy was not used to int erpret this result as normal/abnormal . [facility] CenterXlylyiaLDGFLSASBX1303-58-83 06:44:00 Test Item Value Reference Range Interpretation Comments Monocytes # (test code 0.3 See_Comment [Aut omated message] The = Monocytes #) system which generated this result tra nsmitted reference range : <=0.8. The reference r ozzy was not used to int erpret this result as normal/abnormal . [facility] CenterTtlodjeNJNQAKOXSN4921-04-08 06:44:00 Test Item Value Reference Range Interpretation Comments Eosinophils # (test code 0.1 See_Comment [A utomated message] The = Eosinophils #) system whic h generated this result tra nsmitted reference range : <=0.5. The reference r ozzy was not used to int erpret this result as normal/abnormal . [facility] CenterFjuluzoQVMLCQJGTZ0712-70-92 06:44:00 Test Item Value Reference Range Interpretation Comments Segs-Bands # (test code = Segs-Bands #) 9.3 1.5-8.1 [facility] CenterGmqzyitLKCGJPAHNH2419-51-92 06:44:00 Test Item Value Reference Range Interpretation Comments Lymphocytes # (test code = Lymphocytes 2.6 1.0-5.5 #) [facility] CenterMjpaavjPHJVYYWHLX3979-02-35 06:44:00 Test Item Value Reference Range Interpretation Comments Basophils # (test code 0.0 See_Comment [Aut omated message] The = Basophils #) system which generated this result tra nsmitted reference range : <=0.2. The reference r ozzy was not used to int erpret this result as normal/abnormal . [facility] CenterOblwgznXUKJFPHEYY6370-03-76 06:44:00 Test Item Value Reference Range Interpretation Comments Microcyte (test code = 1+ *ABN*(02/13/16 1:44 Microcyte) AM) [facility] CenterZyxrpwvHJKZAVQTYE5204-01-79 06:44:00 Test Item Value Reference Range Interpretation Comments Giant Plt (test code Moderate *ABN*(02/13/16 = Giant Plt) 1:44 AM) [facility] CenterRbweyhvVHKTITTMIK7655-98-74 06:44:00 Test Item Value Reference Range Interpretation Comments Segs (test code = Segs) 75.2 45.0-75.0 [facility] CenterNbuavpaYXIMRCWLJT5829-22-56 06:44:00 Test Item Value Reference Range Interpretation Comments Hypochrom (test code = 1+ (02/13/16 1:44 AM) Hypochrom) [facility] CenterGtivhumTJEEDRDQVT3061-53-94 06:44:00 Test Item Value Reference Range Interpretation Comments Eosinophils (test code = 0.7 See_Comment [A utomated message] The Eosinophils) system which ge nerated this result tra nsmitted reference range : <=4.0. The reference r ozzy was not used to int erpret this result as normal/abnormal . [facility] CenterBwodmkzFROHOQVPXC5756-20-86 06:44:00 Test Item Value Reference Range Interpretation Comments Lymphocytes (test code = Lymphocytes) 21.3 20.0-40.0 [facility] CenterOzavuvaHVHTJBTFIP6512-31-25 06:44:00 Test Item Value Reference Range Interpretation Comments Monocytes (test code = Monocytes) 2.7 2.0-12.0 [facility] CenterBswvxmbNOGYRBUXSN3705-21-44 06:44:00 Test Item Value Reference Range Interpretation Comments MPV (test code = MPV) 9.5 7.4-10.4 [facility] CenterWmjeqemABPDHVYPZS3759-34-64 06:44:00 Test Item Value Reference Range Interpretation Comments RDW (test code = RDW) 17.8 11.5-14.5 [facility] CenterZpthiuuKJBFBRYEAT9245-88-27 06:44:00 Test Item Value Reference Range Interpretation Comments MCV (test code = MCV) 73.2 80.0-98.0 [facility] CenterStzmhbbUZYWANPTLQ6369-58-65 06:44:00 Test Item Value Reference Range Interpretation Comments MCH (test code = MCH) 21.9 pg 27.0-31.0 [facility] CenterQskmdlxIYVYKDMDZY6973-01-75 06:44:00 Test Item Value Reference Range Interpretation Comments Hct (test code = Hct) 27.2 36.0-48.0 [facility] CenterYtdmtayKGPGRVBQMG4933-15-56 06:44:00 Test Item Value Reference Range Interpretation Comments MCHC (test code = MCHC) 29.9 32.0-36.0 [facility] CenterPorrrstWBOGQJFTJS3569-42-19 06:44:00 Test Item Value Reference Range Interpretation Comments Platelet (test code = Platelet) 400 133-450 [facility] [id number] 07:51:00 Test Item Value Reference Range Interpretation Comments Globulin (test code = Globulin) 3.9 2.0-4.0 [facility] [id number] 07:51:00 Test Item Value Reference Range Interpretation Comments A/G Ratio (test code = A/G Ratio) 0.9 0.7-1.6 [facility]JyewjkgBLRGOMRLXCOBL0614-88-63 07:51:00 Test Item Value Reference Range Interpretation Comments hCG Tot (test code = hCG Tot) no gt [facility]YfzztnfWQXJZOIDWV0778-14-12 07:51:00 Test Item Value Reference Range Interpretation Comments MCHC (test code = MCHC) 33.8 32.0-36.0 [facility] CenterBiervmwSSFUIDUUBB9822-42-40 07:51:00 Test Item Value Reference Range Interpretation Comments MCH (test code = MCH) 30.3 pg 27.0-31.0 [facility] CenterUpbiddkAPUGZYZOBX9842-45-16 07:51:00 Test Item Value Reference Range Interpretation Comments RDW (test code = RDW) 13.0 11.5-14.5 [facility] CenterIqxzluuDEPVBCJTKZ3083-95-17 07:51:00 Test Item Value Reference Range Interpretation Comments MPV (test code = MPV) 8.4 7.4-10.4 [facility] CenterXiwqvphYIPYKAOEIH7160-72-90 07:51:00 Test Item Value Reference Range Interpretation Comments Platelet (test code = Platelet) 356 133-450 [facility] CenterHfbpuvqQQWZRAHSWS2077-80-19 07:51:00 Test Item Value Reference Range Interpretation Comments RBC (test code = RBC) 4.45 4.20-5.40 [facility] CenterXvheftlFIZBINDSRK0293-65-93 07:51:00 Test Item Value Reference Range Interpretation Comments WBC (test code = WBC) 12.9 3.7-10.4 [facility] CenterRbarfctZQMQEROGYW8115-52-66 07:51:00 Test Item Value Reference Range Interpretation Comments Hgb (test code = Hgb) 13.5 12.0-16.0 [facility] CenterGpkneqoEWDFFSIOBU8783-70-71 07:51:00 Test Item Value Reference Range Interpretation Comments MCV (test code = MCV) 89.7 80.0-98.0 [facility] CenterSaehelsLMYPHDUBNE8245-55-18 07:51:00 Test Item Value Reference Range Interpretation Comments Hct (test code = Hct) 39.9 36.0-48.0 [facility] CenterLpfvyltPGOLKZXHZM3911-36-45 07:51:00 Test Item Value Reference Range Interpretation Comments Eosinophils # (test code 0.3 See_Comment [A utomated message] The = Eosinophils #) system whic h generated this result tra nsmitted reference range : <=0.5. The reference r ozzy was not used to int erpret this result as normal/abnormal . [facility] CenterHxzmgxxFZRJHZVJTY9227-98-82 07:51:00 Test Item Value Reference Range Interpretation Comments Lymphocytes # (test code = Lymphocytes 3.6 1.0-5.5 #) [facility] CenterMdlguzjGUWCLWPXPV9126-91-58 07:51:00 Test Item Value Reference Range Interpretation Comments Monocytes # (test code 0.7 See_Comment [Aut omated message] The = Monocytes #) system which generated this result tra nsmitted reference range : <=0.8. The reference r ozzy was not used to int erpret this result as normal/abnormal . [facility] CenterLoapuczEHFYQUGTQC4439-41-34 07:51:00 Test Item Value Reference Range Interpretation Comments Segs (test code = Segs) 63.9 45.0-75.0 [facility] CenterPzhhugnAUIBHVUTWA4507-23-38 07:51:00 Test Item Value Reference Range Interpretation Comments Segs-Bands # (test code = Segs-Bands #) 8.2 1.5-8.1 [facility] CenterEbvtcvaGFGSAJYEKO3877-98-45 07:51:00 Test Item Value Reference Range Interpretation Comments Basophils (test code = 0.7 See_Comment [Aut omated message] The Basophils) system which ge nerated this result tra nsmitted reference range : <=1.0. The reference r ozzy was not used to int erpret this result as normal/abnormal . [facility] CenterUqgidxqSQMRTUEEMI6485-70-95 07:51:00 Test Item Value Reference Range Interpretation Comments Monocytes (test code = Monocytes) 5.4 2.0-12.0 [facility] CenterWksceniOXSRXNMJHE9029-66-55 07:51:00 Test Item Value Reference Range Interpretation Comments Eosinophils (test code = 2.3 See_Comment [A utomated message] The Eosinophils) system which ge nerated this result tra nsmitted reference range : <=4.0. The reference r ozzy was not used to int erpret this result as normal/abnormal . [facility] CenterRseyuicYNMJTXOYCD8276-21-68 07:51:00 Test Item Value Reference Range Interpretation Comments Lymphocytes (test code = Lymphocytes) 27.7 20.0-40.0 [facility] CenterXngwwuzTZGUEAJIRM0331-77-93 07:51:00 Test Item Value Reference Range Interpretation Comments Basophils # (test code 0.1 See_Comment [Aut omated message] The = Basophils #) system which generated this result tra nsmitted reference range : <=0.2. The reference r ozzy was not used to int erpret this result as normal/abnormal . [facility] AND [id number] 07:51:00 Test Item Value Reference Range Interpretation Comments UA Urobilinogen (test code = UA 1.0 0.1-1.0 Urobilinogen) [facility] AND [id number] 07:51:00 Test Item Value Reference Range Interpretation Comments UA Turbidity (test code Cloudy *ABN*(09/04/14 = UA Turbidity) 1:51 AM) [facility] AND [id number] 07:51:00 Test Item Value Reference Range Interpretation Comments UA Color (test code = Red *ABN*(09/04/14 1:51 UA Color) AM) [facility] AND [id number] 07:51:00 Test Item Value Reference Range Interpretation Comments UA Ketones (test code Negative *NA*(09/04/14 = UA Ketones) 1:51 AM) [facility] AND [id number] 07:51:00 Test Item Value Reference Range Interpretation Comments UA Glucose (test code Negative (09/04/14 1:51 = UA Glucose) AM) [facility] AND [id number] 07:51:00 Test Item Value Reference Range Interpretation Comments UA Protein (test code = Trace *ABN*(09/04/14 UA Protein) 1:51 AM) [facility] AND [id number] 07:51:00 Test Item Value Reference Range Interpretation Comments UA pH (test code = UA pH) 8.0 1 5.0-8.0 [facility] AND [id number] 07:51:00 Test Item Value Reference Range Interpretation Comments UA Spec Grav (test code = UA Spec 1.015 1 Grav) [facility] AND [id number] 07:51:00 Test Item Value Reference Range Interpretation Comments UA Bili (test code = Negative *NA*(09/04/14 UA Bili) 1:51 AM) [facility] AND [id number] 07:51:00 Test Item Value Reference Range Interpretation Comments UA Blood (test code = Large *ABN*(09/04/14 UA Blood) 1:51 AM) [facility] AND [id number] 07:51:00 Test Item Value Reference Range Interpretation Comments UA Leuk Est (test Negative (09/04/14 1:51 code = UA Leuk Est) AM) [facility] AND [id number] 07:51:00 Test Item Value Reference Range Interpretation Comments UA Nitrite (test code Negative (09/04/14 1:51 = UA Nitrite) AM) [facility] AND [id number] 07:51:00 Test Item Value Reference Range Interpretation Comments UA Amorph Joselin (test code = UA Few /HPF Amorph Joselin) [facility] AND [id number] 07:51:00 Test Item Value Reference Range Interpretation Comments UA RBC (test code 51-100 /HPF See_Comment [Automate d message] The = UA RBC) system which ge nerated this result tra nsmitted reference range : <=2. The reference r ozzy was not used to int erpret this result as normal/abnormal . [facility] AND [id number] 07:51:00 Test Item Value Reference Range Interpretation Comments UA WBC (test code = UA WBC) 6-10 /HPF [facility] AND [id number] 07:51:00 Test Item Value Reference Range Interpretation Comments UA Bacteria (test code = UA Few /HPF Bacteria) [facility] AND [id number] 07:51:00 Test Item Value Reference Range Interpretation Comments UA Sq Epi (test code = UA Sq Occasional /LPF Epi) [facility] [id number] 07:51:00 Test Item Value Reference Range Interpretation Comments ABO/Rh (test code = ABO/Rh) A POS [facility] [id number] 07:51:00 Test Item Value Reference Range Interpretation Comments Antibody Scrn (test Negative (09/04/14 1:51 code = Antibody Scrn) AM) [facility] [employer] [id number] 07:51:00 Test Item Value Reference Range Interpretation Comments Albumin Lvl (test code = Albumin Lvl) 3.4 3.5-5.0 [facility] [employer] [id number] 07:51:00 Test Item Value Reference Range Interpretation Comments Alk Phos (test code = Alk Phos) 64 39-136 [facility] [employer] [id number] 07:51:00 Test Item Value Reference Range Interpretation Comments ALT (test code = ALT) 18 See_Comment [Auto mated message] The system which ge nerated this result transmit gaye reference range : <=65. The reference range was not used to interpr et this result as satish l/abnormal. [facility] [employer] [id number] 07:51:00 Test Item Value Reference Range Interpretation Comments AST (test code = AST) 12 See_Comment [Auto mated message] The system which ge nerated this result transmit gaye reference range : <=37. The reference range was not used to interpr et this result as satish l/abnormal. [facility] [employer] [id number] 07:51:00 Test Item Value Reference Range Interpretation Comments eGFR (test code = eGFR) 93 [facility] [employer] [id number] 07:51:00 Test Item Value Reference Range Interpretation Comments Bili Total (test code = Bili Total) 0.3 0.2-1.3 [facility] [employer] [id number] 07:51:00 Test Item Value Reference Range Interpretation Comments Chloride Lvl (test code = Chloride Lvl) 108 95-109 [facility] [employer] [id number] 07:51:00 Test Item Value Reference Range Interpretation Comments Sodium Lvl (test code = Sodium Lvl) 138 135-145 [facility] [employer] [id number] 07:51:00 Test Item Value Reference Range Interpretation Comments Potassium Lvl (test code = Potassium 3.9 3.5-5.1 Lvl) [facility]2015-01-23 07:51:00 Test Item Value Reference Range Interpretation Comments CO2 (test code = CO2) 22 24-32 [facility]2015-01-23 07:51:00 Test Item Value Reference Range Interpretation Comments Calcium Lvl (test code = Calcium Lvl) 8.8 8.5-10.5 [facility]2015-01-23 07:51:00 Test Item Value Reference Range Interpretation Comments Glucose Lvl (test code = Glucose Lvl) 98 70-99 [facility]2015-01-23 07:51:00 Test Item Value Reference Range Interpretation Comments Total Protein (test code = Total 7.3 6.4-8.4 Protein) [facility]2015-01-23 07:51:00 Test Item Value Reference Range Interpretation Comments BUN (test code = BUN) 12 - [facility]2015-01-23 07:51:00 Test Item Value Reference Range Interpretation Comments Creatinine Lvl (test code = Creatinine 0.8 0.5-1.4 Lvl) [facility]2015-01-23 07:51:00 Test Item Value Reference Range Interpretation Comments AGAP (test code = AGAP) 11.9 10.0-20.0 [facility]2015-01-23 07:51:00 Test Item Value Reference Range Interpretation Comments B/C Ratio (test code = B/C Ratio) 15 6-25 [facility]2015-01-23 07:51:00 Test Item Value Reference Range Interpretation Comments Globulin (test code = Globulin) 3.9 2.0-4.0 [facility]2015-01-23 07:51:00 Test Item Value Reference Range Interpretation Comments A/G Ratio (test code = A/G Ratio) 0.9 0.7-1.6 [facility]akinrhVGGLZLHYANBEU1542-08-95 07:51:00 Test Item Value Reference Range Interpretation Comments hCG Tot (test code = hCG Tot) no gt [facility]HgrckptPDXAEAMCTI0326-70-70 07:51:00 Test Item Value Reference Range Interpretation Comments MCHC (test code = MCHC) 33.8 32.0-36.0 [facility] CenterHhefqbnZFTZYNGOKQ7212-61-73 07:51:00 Test Item Value Reference Range Interpretation Comments MCH (test code = MCH) 30.3 pg 27.0-31.0 [facility] CenterZfeqydkATOIOIIGXQ1758-76-77 07:51:00 Test Item Value Reference Range Interpretation Comments RDW (test code = RDW) 13.0 11.5-14.5 [facility] CenterSusegkzWAPPLCPIKY8512-42-48 07:51:00 Test Item Value Reference Range Interpretation Comments MPV (test code = MPV) 8.4 7.4-10.4 [facility] CenterBywdbgiNSBGVHTPYJ3733-57-95 07:51:00 Test Item Value Reference Range Interpretation Comments Platelet (test code = Platelet) 356 133-450 [facility] CenterSuswrrvQGNCFORJTV0446-55-05 07:51:00 Test Item Value Reference Range Interpretation Comments RBC (test code = RBC) 4.45 4.20-5.40 [facility] CenterVratkidRJTLJKIMCX1615-40-34 07:51:00 Test Item Value Reference Range Interpretation Comments WBC (test code = WBC) 12.9 3.7-10.4 [facility] CenterEitycwpNYSUTUACDC9862-19-70 07:51:00 Test Item Value Reference Range Interpretation Comments Hgb (test code = Hgb) 13.5 12.0-16.0 [facility] CenterVcqnzgeFSXBXHRQVR9398-39-44 07:51:00 Test Item Value Reference Range Interpretation Comments MCV (test code = MCV) 89.7 80.0-98.0 [facility] CenterRdjmkunVUJHFKZAKV1536-27-27 07:51:00 Test Item Value Reference Range Interpretation Comments Hct (test code = Hct) 39.9 36.0-48.0 [facility] CenterLtwitfjTDPFQVMJYS2320-36-27 07:51:00 Test Item Value Reference Range Interpretation Comments Eosinophils # (test code 0.3 See_Comment [A utomated message] The = Eosinophils #) system whic h generated this result tra nsmitted reference range : <=0.5. The reference r ozzy was not used to int erpret this result as normal/abnormal . [facility] CenterLqkqpsnZLSSZGNGYM0807-85-60 07:51:00 Test Item Value Reference Range Interpretation Comments Lymphocytes # (test code = Lymphocytes 3.6 1.0-5.5 #) [facility] CenterCplsfbyONUDIHZGUI1261-61-99 07:51:00 Test Item Value Reference Range Interpretation Comments Monocytes # (test code 0.7 See_Comment [Aut omated message] The = Monocytes #) system which generated this result tra nsmitted reference range : <=0.8. The reference r ozzy was not used to int erpret this result as normal/abnormal . [facility] CenterLygphqfNPAMNJTGTT9726-41-87 07:51:00 Test Item Value Reference Range Interpretation Comments Segs (test code = Segs) 63.9 45.0-75.0 [facility] CenterLpvejebNQDXDSLALR3638-70-28 07:51:00 Test Item Value Reference Range Interpretation Comments Segs-Bands # (test code = Segs-Bands #) 8.2 1.5-8.1 [facility] CenterMbjyiusBDJGBBXYHW3500-67-69 07:51:00 Test Item Value Reference Range Interpretation Comments Basophils (test code = 0.7 See_Comment [Aut omated message] The Basophils) system which ge nerated this result tra nsmitted reference range : <=1.0. The reference r ozzy was not used to int erpret this result as normal/abnormal . [facility] CenterYvgpevvROALXQBJWH6640-19-76 07:51:00 Test Item Value Reference Range Interpretation Comments Monocytes (test code = Monocytes) 5.4 2.0-12.0 [facility] CenterKgbbjyoQDPRKZUXYN4583-46-90 07:51:00 Test Item Value Reference Range Interpretation Comments Eosinophils (test code = 2.3 See_Comment [A utomated message] The Eosinophils) system which ge nerated this result tra nsmitted reference range : <=4.0. The reference r ozzy was not used to int erpret this result as normal/abnormal . [facility] CenterDqougosSONENKDFXG5512-52-77 07:51:00 Test Item Value Reference Range Interpretation Comments Lymphocytes (test code = Lymphocytes) 27.7 20.0-40.0 [facility] CenterGzbzinqTOZETRWGZL4056-43-55 07:51:00 Test Item Value Reference Range Interpretation Comments Basophils # (test code 0.1 See_Comment [Aut omated message] The = Basophils #) system which generated this result tra nsmitted reference range : <=0.2. The reference r ozzy was not used to int erpret this result as normal/abnormal . [facility]2015-01-23 07:51:00 Test Item Value Reference Range Interpretation Comments UA Urobilinogen (test code = UA 1.0 0.1-1.0 Urobilinogen) [facility] AND [id number] 07:51:00 Test Item Value Reference Range Interpretation Comments UA Turbidity (test code Cloudy *ABN*(09/04/14 = UA Turbidity) 1:51 AM) [facility] AND [id number] 07:51:00 Test Item Value Reference Range Interpretation Comments UA Color (test code = Red *ABN*(09/04/14 1:51 UA Color) AM) [facility] AND [id number] 07:51:00 Test Item Value Reference Range Interpretation Comments UA Ketones (test code Negative *NA*(09/04/14 = UA Ketones) 1:51 AM) [facility] AND [id number] 07:51:00 Test Item Value Reference Range Interpretation Comments UA Glucose (test code Negative (09/04/14 1:51 = UA Glucose) AM) [facility] AND [id number] 07:51:00 Test Item Value Reference Range Interpretation Comments UA Protein (test code = Trace *ABN*(09/04/14 UA Protein) 1:51 AM) [facility] AND [id number] 07:51:00 Test Item Value Reference Range Interpretation Comments UA pH (test code = UA pH) 8.0 1 5.0-8.0 [facility] AND [id number] 07:51:00 Test Item Value Reference Range Interpretation Comments UA Spec Grav (test code = UA Spec 1.015 1 Grav) [facility] AND [id number] 07:51:00 Test Item Value Reference Range Interpretation Comments UA Bili (test code = Negative *NA*(09/04/14 UA Bili) 1:51 AM) [facility] AND [id number] 07:51:00 Test Item Value Reference Range Interpretation Comments UA Blood (test code = Large *ABN*(09/04/14 UA Blood) 1:51 AM) [facility] AND [id number] 07:51:00 Test Item Value Reference Range Interpretation Comments UA Leuk Est (test Negative (09/04/14 1:51 code = UA Leuk Est) AM) [facility] AND [id number] 07:51:00 Test Item Value Reference Range Interpretation Comments UA Nitrite (test code Negative (09/04/14 1:51 = UA Nitrite) AM) [facility] AND [id number] 07:51:00 Test Item Value Reference Range Interpretation Comments UA Amorph Joselin (test code = UA Few /HPF Amorph Joselin) [facility] AND [id number] 07:51:00 Test Item Value Reference Range Interpretation Comments UA RBC (test code 51-100 /HPF See_Comment [Automate d message] The = UA RBC) system which ge nerated this result tra nsmitted reference range : <=2. The reference r ozzy was not used to int erpret this result as normal/abnormal . [facility] AND [id number] 07:51:00 Test Item Value Reference Range Interpretation Comments UA WBC (test code = UA WBC) 6-10 /HPF [facility] AND [id number] 07:51:00 Test Item Value Reference Range Interpretation Comments UA Bacteria (test code = UA Few /HPF Bacteria) [facility] AND [id number] 07:51:00 Test Item Value Reference Range Interpretation Comments UA Sq Epi (test code = UA Sq Occasional /LPF Epi) [facility] [id number] 07:51:00 Test Item Value Reference Range Interpretation Comments ABO/Rh (test code = ABO/Rh) A POS [facility] [id number] 07:51:00 Test Item Value Reference Range Interpretation Comments Antibody Scrn (test Negative (09/04/14 1:51 code = Antibody Scrn) AM) [facility] [employer] [id number] 07:51:00 Test Item Value Reference Range Interpretation Comments Albumin Lvl (test code = Albumin Lvl) 3.4 3.5-5.0 [facility] [employer] [facility] [id number] 07:51:00 Test Item Value Reference Range Interpretation Comments Alk Phos (test code = Alk Phos) 64 39-136 [facility] [employer] [id number] 07:51:00 Test Item Value Reference Range Interpretation Comments ALT (test code = ALT) 18 See_Comment [Auto mated message] The system which ge nerated this result transmit gaye reference range : <=65. The reference range was not used to interpr et this result as satish l/abnormal. [facility]2015-01-23 07:51:00 Test Item Value Reference Range Interpretation Comments AST (test code = AST) 12 See_Comment [Auto mated message] The system which ge nerated this result transmit gaye reference range : <=37. The reference range was not used to interpr et this result as satish l/abnormal. [facility]2015-01-23 07:51:00 Test Item Value Reference Range Interpretation Comments eGFR (test code = eGFR) 93 [facility]2015-01-23 07:51:00 Test Item Value Reference Range Interpretation Comments Bili Total (test code = Bili Total) 0.3 0.2-1.3 [place] [id number] 07:51:00 Test Item Value Reference Range Interpretation Comments Chloride Lvl (test code = Chloride Lvl) 108 95-109 [facility]2015-01-23 07:51:00 Test Item Value Reference Range Interpretation Comments Sodium Lvl (test code = Sodium Lvl) 138 135-145 [facility]2015-01-23 07:51:00 Test Item Value Reference Range Interpretation Comments Potassium Lvl (test code = Potassium 3.9 3.5-5.1 Lvl) [facility]2015-01-23 07:51:00 Test Item Value Reference Range Interpretation Comments CO2 (test code = CO2) 22 24-32 [facility]2015-01-23 07:51:00 Test Item Value Reference Range Interpretation Comments Calcium Lvl (test code = Calcium Lvl) 8.8 8.5-10.5 [facility]2015-01-23 07:51:00 Test Item Value Reference Range Interpretation Comments Glucose Lvl (test code = Glucose Lvl) 98 70-99 [facility]2015-01-23 07:51:00 Test Item Value Reference Range Interpretation Comments Total Protein (test code = Total 7.3 6.4-8.4 Protein) [facility]2015-01-23 07:51:00 Test Item Value Reference Range Interpretation Comments BUN (test code = BUN) 12 7-22 [place] [id number] 07:51:00 Test Item Value Reference Range Interpretation Comments Creatinine Lvl (test code = Creatinine 0.8 0.5-1.4 Lvl) [facility]2015-01-23 07:51:00 Test Item Value Reference Range Interpretation Comments AGAP (test code = AGAP) 11.9 10.0-20.0 [facility]2015-01-23 07:51:00 Test Item Value Reference Range Interpretation Comments B/C Ratio (test code = B/C Ratio) 15 6-25 [facility]2015-01-23 07:51:00 Test Item Value Reference Range Interpretation Comments Globulin (test code = Globulin) 3.9 2.0-4.0 [facility]2015-01-23 07:51:00 Test Item Value Reference Range Interpretation Comments A/G Ratio (test code = A/G Ratio) 0.9 0.7-1.6 [facility]NLPDMLPOVAWDH0402-[facility] 07:51:00 Test Item Value Reference Range Interpretation Comments hCG Tot (test code = hCG Tot) no gt [facility] CenterVjylafpKLLZMTPGSX6550-11-64 07:51:00 Test Item Value Reference Range Interpretation Comments MCHC (test code = MCHC) 33.8 32.0-36.0 [facility] CenterKbqkjbxDQNCZDUHCH8146-92-24 07:51:00 Test Item Value Reference Range Interpretation Comments MCH (test code = MCH) 30.3 pg 27.0-31.0 [facility] CenterZsezmmoEJIMIXJNQR4829-27-06 07:51:00 Test Item Value Reference Range Interpretation Comments RDW (test code = RDW) 13.0 11.5-14.5 [facility] CenterOcxjbfiWDXCZCRWRX3539-46-01 07:51:00 Test Item Value Reference Range Interpretation Comments MPV (test code = MPV) 8.4 7.4-10.4 [facility] CenterJydzxmyMXXRYHEFXG3885-00-73 07:51:00 Test Item Value Reference Range Interpretation Comments Platelet (test code = Platelet) 356 133-450 [facility] CenterGpntpxhWEWGZKPXSJ6631-54-37 07:51:00 Test Item Value Reference Range Interpretation Comments RBC (test code = RBC) 4.45 4.20-5.40 [facility] CenterDhebbnjPPLYXRFNCI3784-06-81 07:51:00 Test Item Value Reference Range Interpretation Comments WBC (test code = WBC) 12.9 3.7-10.4 [facility] Cent[id number] 07:51:00 Test Item Value Reference Range Interpretation Comments Hgb (test code = Hgb) 13.5 12.0-16.0 [facility]LxoglvvAMDWCQIXSD1358-21-11 07:51:00 Test Item Value Reference Range Interpretation Comments MCV (test code = MCV) 89.7 80.0-98.0 [facility] CenterYsmsvcvLHDVVUGVWQ4198-28-70 07:51:00 Test Item Value Reference Range Interpretation Comments Hct (test code = Hct) 39.9 36.0-48.0 [facility] CenterDqjcbmoGDXJFJHLDH7350-46-85 07:51:00 Test Item Value Reference Range Interpretation Comments Eosinophils # (test code 0.3 See_Comment [A utomated message] The = Eosinophils #) system whic h generated this result tra nsmitted reference range : <=0.5. The reference r ozzy was not used to int erpret this result as normal/abnormal . [facility] CenterCizflkuNLEZXXBGOH3466-74-40 07:51:00 Test Item Value Reference Range Interpretation Comments Lymphocytes # (test code = Lymphocytes 3.6 1.0-5.5 #) [facility] CenterQyuejpiUXILWXWPSZ9490-03-94 07:51:00 Test Item Value Reference Range Interpretation Comments Monocytes # (test code 0.7 See_Comment [Aut omated message] The = Monocytes #) system which generated this result tra nsmitted reference range : <=0.8. The reference r ozzy was not used to int erpret this result as normal/abnormal . [facility] CenterTfyyrecGMZZVNYYPC1952-26-10 07:51:00 Test Item Value Reference Range Interpretation Comments Segs (test code = Segs) 63.9 45.0-75.0 [facility] CenterBtairzeECXFGGHEUK7674-25-67 07:51:00 Test Item Value Reference Range Interpretation Comments Segs-Bands # (test code = Segs-Bands #) 8.2 1.5-8.1 [facility] CenterMvqjhxeNOEDJDYWVF1652-25-03 07:51:00 Test Item Value Reference Range Interpretation Comments Basophils (test code = 0.7 See_Comment [Aut omated message] The Basophils) system which ge nerated this result tra nsmitted reference range : <=1.0. The reference r ozzy was not used to int erpret this result as normal/abnormal . [facility] CenterMhpqapsAOXFJFFRQX0466-80-98 07:51:00 Test Item Value Reference Range Interpretation Comments Monocytes (test code = Monocytes) 5.4 2.0-12.0 [facility] CenterIzgpntaHOKVBHIWSS7912-73-62 07:51:00 Test Item Value Reference Range Interpretation Comments Eosinophils (test code = 2.3 See_Comment [A utomated message] The Eosinophils) system which ge nerated this result tra nsmitted reference range : <=4.0. The reference r ozzy was not used to int erpret this result as normal/abnormal . [facility] CenterOrrcxuxMFYVDESTIW9282-70-28 07:51:00 Test Item Value Reference Range Interpretation Comments Lymphocytes (test code = Lymphocytes) 27.7 20.0-40.0 [facility] CenterDyfquxsSFZHUNBQYH3672-92-60 07:51:00 Test Item Value Reference Range Interpretation Comments Basophils # (test code 0.1 See_Comment [Aut omated message] The = Basophils #) system which generated this result tra nsmitted reference range : <=0.2. The reference r ozzy was not used to int erpret this result as normal/abnormal . [facility]2015-01-23 07:51:00 Test Item Value Reference Range Interpretation Comments UA Urobilinogen (test code = UA 1.0 0.1-1.0 Urobilinogen) [facility] AND [id number] 07:51:00 Test Item Value Reference Range Interpretation Comments UA Turbidity (test code Cloudy *ABN*(09/04/14 = UA Turbidity) 1:51 AM) [facility]2015-01-23 07:51:00 Test Item Value Reference Range Interpretation Comments UA Color (test code = Red *ABN*(09/04/14 1:51 UA Color) AM) [facility]2015-01-23 07:51:00 Test Item Value Reference Range Interpretation Comments UA Ketones (test code Negative *NA*(09/04/14 = UA Ketones) 1:51 AM) [facility]2015-01-23 07:51:00 Test Item Value Reference Range Interpretation Comments UA Glucose (test code Negative (09/04/14 1:51 = UA Glucose) AM) [facility] AND [id number] 07:51:00 Test Item Value Reference Range Interpretation Comments UA Protein (test code = Trace *ABN*(09/04/14 UA Protein) 1:51 AM) [facility] AND [id number] 07:51:00 Test Item Value Reference Range Interpretation Comments UA pH (test code = UA pH) 8.0 1 5.0-8.0 [facility] AND [id number] 07:51:00 Test Item Value Reference Range Interpretation Comments UA Spec Grav (test code = UA Spec 1.015 1 Grav) [facility] AND [id number] 07:51:00 Test Item Value Reference Range Interpretation Comments UA Bili (test code = Negative *NA*(09/04/14 UA Bili) 1:51 AM) [facility] AND [id number] 07:51:00 Test Item Value Reference Range Interpretation Comments UA Blood (test code = Large *ABN*(09/04/14 UA Blood) 1:51 AM) [facility] AND [id number] 07:51:00 Test Item Value Reference Range Interpretation Comments UA Leuk Est (test Negative (09/04/14 1:51 code = UA Leuk Est) AM) [facility] AND [id number] 07:51:00 Test Item Value Reference Range Interpretation Comments UA Nitrite (test code Negative (09/04/14 1:51 = UA Nitrite) AM) [facility] AND [id number] 07:51:00 Test Item Value Reference Range Interpretation Comments UA Amorph Joselin (test code = UA Few /HPF Amorph Joselin) [facility] AND [id number] 07:51:00 Test Item Value Reference Range Interpretation Comments UA RBC (test code 51-100 /HPF See_Comment [Automate d message] The = UA RBC) system which ge nerated this result tra nsmitted reference range : <=2. The reference r ozzy was not used to int erpret this result as normal/abnormal . [facility] AND [id number] 07:51:00 Test Item Value Reference Range Interpretation Comments UA WBC (test code = UA WBC) 6-10 /HPF [facility] AND [id number] 07:51:00 Test Item Value Reference Range Interpretation Comments UA Bacteria (test code = UA Few /HPF Bacteria) [facility] [id number] 07:51:00 Test Item Value Reference Range Interpretation Comments UA Sq Epi (test code = UA Sq Occasional /LPF Epi) [facility] [employer] [id number] 07:51:00 Test Item Value Reference Range Interpretation Comments ABO/Rh (test code = ABO/Rh) A POS [facility] [employer] [facility] [id number] 07:51:00 Test Item Value Reference Range Interpretation Comments Antibody Scrn (test Negative (09/04/14 1:51 code = Antibody Scrn) AM) [facility] [employer] [id number] 07:51:00 Test Item Value Reference Range Interpretation Comments Albumin Lvl (test code = Albumin Lvl) 3.4 3.5-5.0 [facility] [employer] [id number] 07:51:00 Test Item Value Reference Range Interpretation Comments Alk Phos (test code = Alk Phos) 64 39-136 [facility] [employer] [id number] 07:51:00 Test Item Value Reference Range Interpretation Comments ALT (test code = ALT) 18 See_Comment [Auto mated message] The system which ge nerated this result transmit gaye reference range : <=65. The reference range was not used to interpr et this result as satish l/abnormal. [facility] [employer] [id number] 07:51:00 Test Item Value Reference Range Interpretation Comments AST (test code = AST) 12 See_Comment [Auto mated message] The system which ge nerated this result transmit gaye reference range : <=37. The reference range was not used to interpr et this result as satish l/abnormal. [facility] [employer] [id number] 07:51:00 Test Item Value Reference Range Interpretation Comments eGFR (test code = eGFR) 93 [facility] [employer] [id number] 07:51:00 Test Item Value Reference Range Interpretation Comments Bili Total (test code = Bili Total) 0.3 0.2-1.3 [facility] [employer] [id number] 07:51:00 Test Item Value Reference Range Interpretation Comments Chloride Lvl (test code = Chloride Lvl) 108 95-109 [facility]2015-01-23 07:51:00 Test Item Value Reference Range Interpretation Comments Sodium Lvl (test code = Sodium Lvl) 138 135-145 [facility]2015-01-23 07:51:00 Test Item Value Reference Range Interpretation Comments Potassium Lvl (test code = Potassium 3.9 3.5-5.1 Lvl) [facility]2015-01-23 07:51:00 Test Item Value Reference Range Interpretation Comments CO2 (test code = CO2) 22 24-32 [facility]2015-01-23 07:51:00 Test Item Value Reference Range Interpretation Comments Calcium Lvl (test code = Calcium Lvl) 8.8 8.5-10.5 [facility]2015-01-23 07:51:00 Test Item Value Reference Range Interpretation Comments Glucose Lvl (test code = Glucose Lvl) 98 70-99 [facility]2015-01-23 07:51:00 Test Item Value Reference Range Interpretation Comments Total Protein (test code = Total 7.3 6.4-8.4 Protein) [facility]2015-01-23 07:51:00 Test Item Value Reference Range Interpretation Comments BUN (test code = BUN) 12 7-22 [facility]2015-01-23 07:51:00 Test Item Value Reference Range Interpretation Comments Creatinine Lvl (test code = Creatinine 0.8 0.5-1.4 Lvl) [facility]2015-01-23 07:51:00 Test Item Value Reference Range Interpretation Comments AGAP (test code = AGAP) 11.9 10.0-20.0 [facility]2015-01-23 07:51:00 Test Item Value Reference Range Interpretation Comments B/C Ratio (test code = B/C Ratio) 15 6-25 [facility]2015-01-23 07:51:00 Test Item Value Reference Range Interpretation Comments Globulin (test code = Globulin) 3.9 2.0-4.0 [facility]2015-01-23 07:51:00 Test Item Value Reference Range Interpretation Comments A/G Ratio (test code = A/G Ratio) 0.9 0.7-1.6 [facility]7728-73-25 07:51:00 Test Item Value Reference Range Interpretation Comments hCG Tot (test code = hCG Tot) no gt [facility] CenterFerarxgSRLMSDOHRB0804-80-61 07:51:00 Test Item Value Reference Range Interpretation Comments MCHC (test code = MCHC) 33.8 32.0-36.0 [facility] CenterKtvyfcwHLNARFWOCZ0769-80-99 07:51:00 Test Item Value Reference Range Interpretation Comments MCH (test code = MCH) 30.3 pg 27.0-31.0 [facility] CenterTughkvjPJMNSZKGHI6301-84-60 07:51:00 Test Item Value Reference Range Interpretation Comments RDW (test code = RDW) 13.0 11.5-14.5 [facility] CenterMnogpziYNHDZGJPDM3058-04-58 07:51:00 Test Item Value Reference Range Interpretation Comments MPV (test code = MPV) 8.4 7.4-10.4 [facility] CenterRzaletwHUCDBWHIQW7851-65-21 07:51:00 Test Item Value Reference Range Interpretation Comments Platelet (test code = Platelet) 356 133-450 [facility] CenterObiriixWWAUWGKAGD5206-76-68 07:51:00 Test Item Value Reference Range Interpretation Comments RBC (test code = RBC) 4.45 4.20-5.40 [facility] CenterJtxndddUEBZZDZKJK6950-54-44 07:51:00 Test Item Value Reference Range Interpretation Comments WBC (test code = WBC) 12.9 3.7-10.4 [facility] CenterAazsheiYKSNATWYOY1949-90-21 07:51:00 Test Item Value Reference Range Interpretation Comments Hgb (test code = Hgb) 13.5 12.0-16.0 [facility] CenterOigddrtGKUVYVFABX1482-06-00 07:51:00 Test Item Value Reference Range Interpretation Comments MCV (test code = MCV) 89.7 80.0-98.0 [facility] CenterMugvsltKQMHGWIQUV4780-18-51 07:51:00 Test Item Value Reference Range Interpretation Comments Hct (test code = Hct) 39.9 36.0-48.0 [facility] CenterEodxbxtKZWVCHJQES9932-86-03 07:51:00 Test Item Value Reference Range Interpretation Comments Eosinophils # (test code 0.3 See_Comment [A utomated message] The = Eosinophils #) system whic h generated this result tra nsmitted reference range : <=0.5. The reference r ozzy was not used to int erpret this result as normal/abnormal . [facility] CenterUixgcolKYBNSFFYIW0885-69-93 07:51:00 Test Item Value Reference Range Interpretation Comments Lymphocytes # (test code = Lymphocytes 3.6 1.0-5.5 #) [facility] CenterHmrqjtsIKCIVNSFUJ9836-26-58 07:51:00 Test Item Value Reference Range Interpretation Comments Monocytes # (test code 0.7 See_Comment [Aut omated message] The = Monocytes #) system which generated this result tra nsmitted reference range : <=0.8. The reference r ozzy was not used to int erpret this result as normal/abnormal . [facility] CenterAsmihxiDGDCBOXCTI7597-37-67 07:51:00 Test Item Value Reference Range Interpretation Comments Segs (test code = Segs) 63.9 45.0-75.0 [facility] CenterDvzpbfoLUJIVOGBRO4401-24-27 07:51:00 Test Item Value Reference Range Interpretation Comments Segs-Bands # (test code = Segs-Bands #) 8.2 1.5-8.1 [facility] CenterTbyvzbpPTKOPOJYFQ5353-42-51 07:51:00 Test Item Value Reference Range Interpretation Comments Basophils (test code = 0.7 See_Comment [Aut omated message] The Basophils) system which ge nerated this result tra nsmitted reference range : <=1.0. The reference r ozzy was not used to int erpret this result as normal/abnormal . [facility] CenterQupeaggYVRELZZDPU1056-11-57 07:51:00 Test Item Value Reference Range Interpretation Comments Monocytes (test code = Monocytes) 5.4 2.0-12.0 [facility] CenterAbpqptkQGRWUYMKAN1652-61-68 07:51:00 Test Item Value Reference Range Interpretation Comments Eosinophils (test code = 2.3 See_Comment [A utomated message] The Eosinophils) system which ge nerated this result tra nsmitted reference range : <=4.0. The reference r ozzy was not used to int erpret this result as normal/abnormal . [facility] CenterJawezzrKHEGWYDXOA4280-99-60 07:51:00 Test Item Value Reference Range Interpretation Comments Lymphocytes (test code = Lymphocytes) 27.7 20.0-40.0 [facility] CenterYgbbcpsALNANFDPYD7655-04-66 07:51:00 Test Item Value Reference Range Interpretation Comments Basophils # (test code 0.1 See_Comment [Aut omated message] The = Basophils #) system which generated this result tra nsmitted reference range : <=0.2. The reference r ozzy was not used to int erpret this result as normal/abnormal . [facility] AND [id number] 07:51:00 Test Item Value Reference Range Interpretation Comments UA Urobilinogen (test code = UA 1.0 0.1-1.0 Urobilinogen) [facility] AND [id number] 07:51:00 Test Item Value Reference Range Interpretation Comments UA Turbidity (test code Cloudy *ABN*(09/04/14 = UA Turbidity) 1:51 AM) [facility] AND [id number] 07:51:00 Test Item Value Reference Range Interpretation Comments UA Color (test code = Red *ABN*(09/04/14 1:51 UA Color) AM) [facility] AND [id number] 07:51:00 Test Item Value Reference Range Interpretation Comments UA Ketones (test code Negative *NA*(09/04/14 = UA Ketones) 1:51 AM) [facility] AND [id number] 07:51:00 Test Item Value Reference Range Interpretation Comments UA Glucose (test code Negative (09/04/14 1:51 = UA Glucose) AM) [facility] AND [id number] 07:51:00 Test Item Value Reference Range Interpretation Comments UA Protein (test code = Trace *ABN*(09/04/14 UA Protein) 1:51 AM) [facility] AND [id number] 07:51:00 Test Item Value Reference Range Interpretation Comments UA pH (test code = UA pH) 8.0 1 5.0-8.0 [facility] AND [id number] 07:51:00 Test Item Value Reference Range Interpretation Comments UA Spec Grav (test code = UA Spec 1.015 1 Grav) [facility] AND [id number] 07:51:00 Test Item Value Reference Range Interpretation Comments UA Bili (test code = Negative *NA*(09/04/14 UA Bili) 1:51 AM) [facility] AND [id number] 07:51:00 Test Item Value Reference Range Interpretation Comments UA Blood (test code = Large *ABN*(09/04/14 UA Blood) 1:51 AM) [facility] AND [id number] 07:51:00 Test Item Value Reference Range Interpretation Comments UA Leuk Est (test Negative (09/04/14 1:51 code = UA Leuk Est) AM) [facility] AND [id number] 07:51:00 Test Item Value Reference Range Interpretation Comments UA Nitrite (test code Negative (09/04/14 1:51 = UA Nitrite) AM) [facility] AND [id number] 07:51:00 Test Item Value Reference Range Interpretation Comments UA Amorph Joselin (test code = UA Few /HPF Amorph Joselin) [facility] AND [id number] 07:51:00 Test Item Value Reference Range Interpretation Comments UA RBC (test code 51-100 /HPF See_Comment [Automate d message] The = UA RBC) system which ge nerated this result tra nsmitted reference range : <=2. The reference r ozzy was not used to int erpret this result as normal/abnormal . [facility] AND [id number] 07:51:00 Test Item Value Reference Range Interpretation Comments UA WBC (test code = UA WBC) 6-10 /HPF [facility] AND [id number] 07:51:00 Test Item Value Reference Range Interpretation Comments UA Bacteria (test code = UA Few /HPF Bacteria) [facility] AND [id number] 07:51:00 Test Item Value Reference Range Interpretation Comments UA Sq Epi (test code = UA Sq Occasional /LPF Epi) [facility] [employer] [id number] 07:51:00 Test Item Value Reference Range Interpretation Comments ABO/Rh (test code = ABO/Rh) A POS [facility] [employer] [facility] [id number] 07:51:00 Test Item Value Reference Range Interpretation Comments Antibody Scrn (test Negative (09/04/14 1:51 code = Antibody Scrn) AM) [facility] [employer] [id number] 07:51:00 Test Item Value Reference Range Interpretation Comments Albumin Lvl (test code = Albumin Lvl) 3.4 3.5-5.0 [facility] [employer] [id number] 07:51:00 Test Item Value Reference Range Interpretation Comments Alk Phos (test code = Alk Phos) 64 39-136 [facility]2015-01-23 07:51:00 Test Item Value Reference Range Interpretation Comments ALT (test code = ALT) 18 See_Comment [Auto mated message] The system which ge nerated this result transmit gaye reference range : <=65. The reference range was not used to interpr et this result as satish l/abnormal. [place] [id number] 07:51:00 Test Item Value Reference Range Interpretation Comments AST (test code = AST) 12 See_Comment [Auto mated message] The system which ge nerated this result transmit gaye reference range : <=37. The reference range was not used to interpr et this result as satish l/abnormal. [facility]2015-01-23 07:51:00 Test Item Value Reference Range Interpretation Comments eGFR (test code = eGFR) 93 [facility]2015-01-23 07:51:00 Test Item Value Reference Range Interpretation Comments Bili Total (test code = Bili Total) 0.3 0.2-1.3 [place] [id number] 07:51:00 Test Item Value Reference Range Interpretation Comments Chloride Lvl (test code = Chloride Lvl) 108 95-109 [facility]2015-01-23 07:51:00 Test Item Value Reference Range Interpretation Comments Sodium Lvl (test code = Sodium Lvl) 138 135-145 [place] 016125-01-23 07:51:00 Test Item Value Reference Range Interpretation Comments Potassium Lvl (test code = Potassium 3.9 3.5-5.1 Lvl) [facility]2015-01-23 07:51:00 Test Item Value Reference Range Interpretation Comments CO2 (test code = CO2) 22 24-32 [facility]2015-01-23 07:51:00 Test Item Value Reference Range Interpretation Comments Calcium Lvl (test code = Calcium Lvl) 8.8 8.5-10.5 [facility]2015-01-23 07:51:00 Test Item Value Reference Range Interpretation Comments Glucose Lvl (test code = Glucose Lvl) 98 70-99 [facility]2015-01-23 07:51:00 Test Item Value Reference Range Interpretation Comments Total Protein (test code = Total 7.3 6.4-8.4 Protein) [facility]2015-01-23 07:51:00 Test Item Value Reference Range Interpretation Comments BUN (test code = BUN) 12 7- [facility]2015-01-23 07:51:00 Test Item Value Reference Range Interpretation Comments Creatinine Lvl (test code = Creatinine 0.8 0.5-1.4 Lvl) [facility]2015-01-23 07:51:00 Test Item Value Reference Range Interpretation Comments AGAP (test code = AGAP) 11.9 10.0-20.0 [facility]2015-01-23 07:51:00 Test Item Value Reference Range Interpretation Comments B/C Ratio (test code = B/C Ratio) 15 6-25 [facility]2015-01-23 07:51:00 Test Item Value Reference Range Interpretation Comments Globulin (test code = Globulin) 3.9 2.0-4.0 [facility]2015-01-23 07:51:00 Test Item Value Reference Range Interpretation Comments A/G Ratio (test code = A/G Ratio) 0.9 0.7-1.6 [facility]NY7598-89-56 07:51:00 Test Item Value Reference Range Interpretation Comments hCG Tot (test code = hCG Tot) no gt [facility] CenterGazmzrfZDJJOILUZH2900-43-14 07:51:00 Test Item Value Reference Range Interpretation Comments MCHC (test code = MCHC) 33.8 32.0-36.0 [facility] CenterPmelufzXRUKQIMRQX4460-79-29 07:51:00 Test Item Value Reference Range Interpretation Comments MCH (test code = MCH) 30.3 pg 27.0-31.0 [facility] CenterRgzyisqXLNYGYSKKX8692-53-71 07:51:00 Test Item Value Reference Range Interpretation Comments RDW (test code = RDW) 13.0 11.5-14.5 [facility] CenterHvjshdwXHFHQEGPDU8439-13-06 07:51:00 Test Item Value Reference Range Interpretation Comments MPV (test code = MPV) 8.4 7.4-10.4 [facility] CenterXdnparwWEDEKHCHRS6013-99-84 07:51:00 Test Item Value Reference Range Interpretation Comments Platelet (test code = Platelet) 356 133-450 [facility] CenterDjabvqtNDPPTKUPIO7295-11-78 07:51:00 Test Item Value Reference Range Interpretation Comments RBC (test code = RBC) 4.45 4.20-5.40 [facility] CenterEujdhkrDDSQTKNMGH2009-25-79 07:51:00 Test Item Value Reference Range Interpretation Comments WBC (test code = WBC) 12.9 3.7-10.4 [facility] CenterLlmaotsDUGGAMZWBS9226-62-34 07:51:00 Test Item Value Reference Range Interpretation Comments Hgb (test code = Hgb) 13.5 12.0-16.0 [facility] CenterZacdbioSZNVGYMBOM3357-80-50 07:51:00 Test Item Value Reference Range Interpretation Comments MCV (test code = MCV) 89.7 80.0-98.0 [facility] CenterUtjqocuMZCDSXYSYC8438-66-03 07:51:00 Test Item Value Reference Range Interpretation Comments Hct (test code = Hct) 39.9 36.0-48.0 [facility] CenterFcysiykIARFJVJBBE3678-68-55 07:51:00 Test Item Value Reference Range Interpretation Comments Eosinophils # (test code 0.3 See_Comment [A utomated message] The = Eosinophils #) system whic h generated this result tra nsmitted reference range : <=0.5. The reference r ozzy was not used to int erpret this result as normal/abnormal . [facility] CenterWvosvssXWILVOBRXP5799-15-99 07:51:00 Test Item Value Reference Range Interpretation Comments Lymphocytes # (test code = Lymphocytes 3.6 1.0-5.5 #) [facility] CenterQvrwagkXIEMCGDWVL7344-57-88 07:51:00 Test Item Value Reference Range Interpretation Comments Monocytes # (test code 0.7 See_Comment [Aut omated message] The = Monocytes #) system which generated this result tra nsmitted reference range : <=0.8. The reference r ozzy was not used to int erpret this result as normal/abnormal . [id number] 07:51:00 Test Item Value Reference Range Interpretation Comments Segs (test code = Segs) 63.9 45.0-75.0 [facility] CenterZbzwzhmTEPYLNBBVX7891-06-09 07:51:00 Test Item Value Reference Range Interpretation Comments Segs-Bands # (test code = Segs-Bands #) 8.2 1.5-8.1 [facility] C[id number] 07:51:00 Test Item Value Reference Range Interpretation Comments Basophils (test code = 0.7 See_Comment [Aut omated message] The Basophils) system which ge nerated this result tra nsmitted reference range : <=1.0. The reference r ozzy was not used to int erpret this result as normal/abnormal . [facility] CenterJubkvynQRFYARZZWH1843-30-04 07:51:00 Test Item Value Reference Range Interpretation Comments Monocytes (test code = Monocytes) 5.4 2.0-12.0 [facility] [id number] 07:51:00 Test Item Value Reference Range Interpretation Comments Eosinophils (test code = 2.3 See_Comment [A utomated message] The Eosinophils) system which ge nerated this result tra nsmitted reference range : <=4.0. The reference r ozzy was not used to int erpret this result as normal/abnormal . [facility] C[id number] 07:51:00 Test Item Value Reference Range Interpretation Comments Lymphocytes (test code = Lymphocytes) 27.7 20.0-40.0 [facility] CenterQcvenbcHPFBKMWEGI2723-32-07 07:51:00 Test Item Value Reference Range Interpretation Comments Basophils # (test code 0.1 See_Comment [Aut omated message] The = Basophils #) system which generated this result tra nsmitted reference range : <=0.2. The reference r ozzy was not used to int erpret this result as normal/abnormal . [facility]2015-01-23 07:51:00 Test Item Value Reference Range Interpretation Comments UA Urobilinogen (test code = UA 1.0 0.1-1.0 Urobilinogen) [facility]2015-01-23 07:51:00 Test Item Value Reference Range Interpretation Comments UA Turbidity (test code Cloudy *ABN*(09/04/14 = UA Turbidity) 1:51 AM) [facility]2015-01-23 07:51:00 Test Item Value Reference Range Interpretation Comments UA Color (test code = Red *ABN*(09/04/14 1:51 UA Color) AM) [facility]2015-01-23 07:51:00 Test Item Value Reference Range Interpretation Comments UA Ketones (test code Negative *NA*(09/04/14 = UA Ketones) 1:51 AM) [facility] AND [id number] 07:51:00 Test Item Value Reference Range Interpretation Comments UA Glucose (test code Negative (09/04/14 1:51 = UA Glucose) AM) [facility] AND [id number] 07:51:00 Test Item Value Reference Range Interpretation Comments UA Protein (test code = Trace *ABN*(09/04/14 UA Protein) 1:51 AM) [facility] AND [id number] 07:51:00 Test Item Value Reference Range Interpretation Comments UA pH (test code = UA pH) 8.0 1 5.0-8.0 [facility] AND [id number] 07:51:00 Test Item Value Reference Range Interpretation Comments UA Spec Grav (test code = UA Spec 1.015 1 Grav) [facility] AND [id number] 07:51:00 Test Item Value Reference Range Interpretation Comments UA Bili (test code = Negative *NA*(09/04/14 UA Bili) 1:51 AM) [facility] AND [id number] 07:51:00 Test Item Value Reference Range Interpretation Comments UA Blood (test code = Large *ABN*(09/04/14 UA Blood) 1:51 AM) [facility] AND [id number] 07:51:00 Test Item Value Reference Range Interpretation Comments UA Leuk Est (test Negative (09/04/14 1:51 code = UA Leuk Est) AM) [facility] AND [id number] 07:51:00 Test Item Value Reference Range Interpretation Comments UA Nitrite (test code Negative (09/04/14 1:51 = UA Nitrite) AM) [facility] AND [id number] 07:51:00 Test Item Value Reference Range Interpretation Comments UA Amorph Joselin (test code = UA Few /HPF Amorph Joselin) [facility] AND [id number] 07:51:00 Test Item Value Reference Range Interpretation Comments UA RBC (test code 51-100 /HPF See_Comment [Automate d message] The = UA RBC) system which ge nerated this result tra nsmitted reference range : <=2. The reference r ozzy was not used to int erpret this result as normal/abnormal . [facility] AND [id number] 07:51:00 Test Item Value Reference Range Interpretation Comments UA WBC (test code = UA WBC) 6-10 /HPF [facility] AND [id number] 07:51:00 Test Item Value Reference Range Interpretation Comments UA Bacteria (test code = UA Few /HPF Bacteria) [facility] AND [id number] 07:51:00 Test Item Value Reference Range Interpretation Comments UA Sq Epi (test code = UA Sq Occasional /LPF Epi) [facility] [employer] [id number] 07:51:00 Test Item Value Reference Range Interpretation Comments ABO/Rh (test code = ABO/Rh) A POS [facility] [employer] [facility] [id number] 07:51:00 Test Item Value Reference Range Interpretation Comments Antibody Scrn (test Negative (09/04/14 1:51 code = Antibody Scrn) AM) [facility] [employer] [id number] 07:51:00 Test Item Value Reference Range Interpretation Comments Albumin Lvl (test code = Albumin Lvl) 3.4 3.5-5.0 [facility] [employer] [id number] 07:51:00 Test Item Value Reference Range Interpretation Comments Alk Phos (test code = Alk Phos) 64 39-136 [facility] [employer] [id number] 07:51:00 Test Item Value Reference Range Interpretation Comments ALT (test code = ALT) 18 See_Comment [Auto mated message] The system which ge nerated this result transmit gaye reference range : <=65. The reference range was not used to interpr et this result as satish l/abnormal. [facility] [employer] [id number] 07:51:00 Test Item Value Reference Range Interpretation Comments AST (test code = AST) 12 See_Comment [Auto mated message] The system which ge nerated this result transmit gaye reference range : <=37. The reference range was not used to interpr et this result as satish l/abnormal. [facility] [employer] [id number] 07:51:00 Test Item Value Reference Range Interpretation Comments eGFR (test code = eGFR) 93 [facility] [id number] 07:51:00 Test Item Value Reference Range Interpretation Comments Bili Total (test code = Bili Total) 0.3 0.2-1.3 [facility]2015-01-23 07:51:00 Test Item Value Reference Range Interpretation Comments Chloride Lvl (test code = Chloride Lvl) 108 95-109 [facility]2015-01-23 07:51:00 Test Item Value Reference Range Interpretation Comments Sodium Lvl (test code = Sodium Lvl) 138 135-145 [facility]2015-01-23 07:51:00 Test Item Value Reference Range Interpretation Comments Potassium Lvl (test code = Potassium 3.9 3.5-5.1 Lvl) [facility]2015-01-23 07:51:00 Test Item Value Reference Range Interpretation Comments CO2 (test code = CO2) 22 24-32 [facility]2015-01-23 07:51:00 Test Item Value Reference Range Interpretation Comments Calcium Lvl (test code = Calcium Lvl) 8.8 8.5-10.5 [facility]2015-01-23 07:51:00 Test Item Value Reference Range Interpretation Comments Glucose Lvl (test code = Glucose Lvl) 98 70-99 [facility]2015-01-23 07:51:00 Test Item Value Reference Range Interpretation Comments Total Protein (test code = Total 7.3 6.4-8.4 Protein) [facility]2015-01-23 07:51:00 Test Item Value Reference Range Interpretation Comments BUN (test code = BUN) 12 -22 [facility]2015-01-23 07:51:00 Test Item Value Reference Range Interpretation Comments Creatinine Lvl (test code = Creatinine 0.8 0.5-1.4 Lvl) [facility]2015-01-23 07:51:00 Test Item Value Reference Range Interpretation Comments AGAP (test code = AGAP) 11.9 10.0-20.0 [facility]2015-01-23 07:51:00 Test Item Value Reference Range Interpretation Comments B/C Ratio (test code = B/C Ratio) 15 6-25 [facility]2015-01-23 07:51:00 Test Item Value Reference Range Interpretation Comments Globulin (test code = Globulin) 3.9 2.0-4.0 [facility]2015-01-23 07:51:00 Test Item Value Reference Range Interpretation Comments A/G Ratio (test code = A/G Ratio) 0.9 0.7-1.6 [place] [id number] 07:51:00 Test Item Value Reference Range Interpretation Comments hCG Tot (test code = hCG Tot) no gt [facility] CenterZqearreDQDPIYPJPU9180-30-12 07:51:00 Test Item Value Reference Range Interpretation Comments MCHC (test code = MCHC) 33.8 32.0-36.0 [facility] CenterOdjpetkQAWPEFLAJQ6084-35-97 07:51:00 Test Item Value Reference Range Interpretation Comments MCH (test code = MCH) 30.3 pg 27.0-31.0 [facility] C[id number] 07:51:00 Test Item Value Reference Range Interpretation Comments RDW (test code = RDW) 13.0 11.5-14.5 [facility] CenterTrdlfqcMBMRLXEIPG7014-29-53 07:51:00 Test Item Value Reference Range Interpretation Comments MPV (test code = MPV) 8.4 7.4-10.4 [facility] [id number] 07:51:00 Test Item Value Reference Range Interpretation Comments Platelet (test code = Platelet) 356 133-450 [facility] CenterAhgaagcUJLDQFPDKJ4061-73-87 07:51:00 Test Item Value Reference Range Interpretation Comments RBC (test code = RBC) 4.45 4.20-5.40 [facility] CenterTzcgqktBVYUGLJCES8403-58-09 07:51:00 Test Item Value Reference Range Interpretation Comments WBC (test code = WBC) 12.9 3.7-10.4 [facility] CenterIjylpuwVJGNVSBTBI5886-03-41 07:51:00 Test Item Value Reference Range Interpretation Comments Hgb (test code = Hgb) 13.5 12.0-16.0 [facility] CenterJeezvooXXPVQFLUOM9960-05-06 07:51:00 Test Item Value Reference Range Interpretation Comments MCV (test code = MCV) 89.7 80.0-98.0 [facility] CenterNnkpjatAJKKRCXYMS6841-59-80 07:51:00 Test Item Value Reference Range Interpretation Comments Hct (test code = Hct) 39.9 36.0-48.0 [facility] CenterFjahkocWUGRQDMGDF2837-06-10 07:51:00 Test Item Value Reference Range Interpretation Comments Eosinophils # (test code 0.3 See_Comment [A utomated message] The = Eosinophils #) system ic h generated this result tra nsmitted reference range : <=0.5. The reference r ozzy was not used to int erpret this result as normal/abnormal . [facility] CenterZzwjpwuMJFIKZKOZI3573-95-07 07:51:00 Test Item Value Reference Range Interpretation Comments Lymphocytes # (test code = Lymphocytes 3.6 1.0-5.5 #) [facility] CenterEozactwKXAAQKZUAY2107-87-03 07:51:00 Test Item Value Reference Range Interpretation Comments Monocytes # (test code 0.7 See_Comment [Aut omated message] The = Monocytes #) system which generated this result tra nsmitted reference range : <=0.8. The reference r ozzy was not used to int erpret this result as normal/abnormal . [facility] CenterVeamqgjAUBRUVOOMA0866-18-09 07:51:00 Test Item Value Reference Range Interpretation Comments Segs (test code = Segs) 63.9 45.0-75.0 [facility] CenterAgwnxkjZZJMTVVWGE5586-95-96 07:51:00 Test Item Value Reference Range Interpretation Comments Segs-Bands # (test code = Segs-Bands #) 8.2 1.5-8.1 [facility] CenterGdqlvdhXFALVDGQIC7596-13-66 07:51:00 Test Item Value Reference Range Interpretation Comments Basophils (test code = 0.7 See_Comment [Aut omated message] The Basophils) system which ge nerated this result tra nsmitted reference range : <=1.0. The reference r ozzy was not used to int erpret this result as normal/abnormal . [facility] CenterWugggfbNUVILZVKRV3199-56-20 07:51:00 Test Item Value Reference Range Interpretation Comments Monocytes (test code = Monocytes) 5.4 2.0-12.0 [facility] CenterOdbdowoPSTRPKFZKL0215-49-48 07:51:00 Test Item Value Reference Range Interpretation Comments Eosinophils (test code = 2.3 See_Comment [A utomated message] The Eosinophils) system which ge nerated this result tra nsmitted reference range : <=4.0. The reference r ozzy was not used to int erpret this result as normal/abnormal . [facility] CenterAatbhytPBBJFKXOJT1736-75-48 07:51:00 Test Item Value Reference Range Interpretation Comments Lymphocytes (test code = Lymphocytes) 27.7 20.0-40.0 [facility]RdnhsbdCLTHGUMEDX0646-81-68 07:51:00 Test Item Value Reference Range Interpretation Comments Basophils # (test code 0.1 See_Comment [Aut omated message] The = Basophils #) system which generated this result tra nsmitted reference range : <=0.2. The reference r ozzy was not used to int erpret this result as normal/abnormal . [facility] AND [id number] 07:51:00 Test Item Value Reference Range Interpretation Comments UA Urobilinogen (test code = UA 1.0 0.1-1.0 Urobilinogen) [facility] AND [id number] 07:51:00 Test Item Value Reference Range Interpretation Comments UA Turbidity (test code Cloudy *ABN*(09/04/14 = UA Turbidity) 1:51 AM) [facility] AND [id number] 07:51:00 Test Item Value Reference Range Interpretation Comments UA Color (test code = Red *ABN*(09/04/14 1:51 UA Color) AM) [facility] AND [id number] 07:51:00 Test Item Value Reference Range Interpretation Comments UA Ketones (test code Negative *NA*(09/04/14 = UA Ketones) 1:51 AM) [facility] AND [id number] 07:51:00 Test Item Value Reference Range Interpretation Comments UA Glucose (test code Negative (09/04/14 1:51 = UA Glucose) AM) [facility] AND [id number] 07:51:00 Test Item Value Reference Range Interpretation Comments UA Protein (test code = Trace *ABN*(09/04/14 UA Protein) 1:51 AM) [facility] AND [id number] 07:51:00 Test Item Value Reference Range Interpretation Comments UA pH (test code = UA pH) 8.0 1 5.0-8.0 [facility] AND [id number] 07:51:00 Test Item Value Reference Range Interpretation Comments UA Spec Grav (test code = UA Spec 1.015 1 Grav) [facility] AND [id number] 07:51:00 Test Item Value Reference Range Interpretation Comments UA Bili (test code = Negative *NA*(09/04/14 UA Bili) 1:51 AM) [facility] AND [id number] 07:51:00 Test Item Value Reference Range Interpretation Comments UA Blood (test code = Large *ABN*(09/04/14 UA Blood) 1:51 AM) [facility] AND [id number] 07:51:00 Test Item Value Reference Range Interpretation Comments UA Leuk Est (test Negative (09/04/14 1:51 code = UA Leuk Est) AM) [facility] AND [id number] 07:51:00 Test Item Value Reference Range Interpretation Comments UA Nitrite (test code Negative (09/04/14 1:51 = UA Nitrite) AM) [facility] AND [id number] 07:51:00 Test Item Value Reference Range Interpretation Comments UA Amorph Joselin (test code = UA Few /HPF Amorph Joselin) [facility] AND [id number] 07:51:00 Test Item Value Reference Range Interpretation Comments UA RBC (test code 51-100 /HPF See_Comment [Automate d message] The = UA RBC) system which ge nerated this result tra nsmitted reference range : <=2. The reference r ozzy was not used to int erpret this result as normal/abnormal . [facility] AND [id number] 07:51:00 Test Item Value Reference Range Interpretation Comments UA WBC (test code = UA WBC) 6-10 /HPF [facility] AND [id number] 07:51:00 Test Item Value Reference Range Interpretation Comments UA Bacteria (test code = UA Few /HPF Bacteria) [facility] AND [id number] 07:51:00 Test Item Value Reference Range Interpretation Comments UA Sq Epi (test code = UA Sq Occasional /LPF Epi) [facility] [employer] [id number] 07:51:00 Test Item Value Reference Range Interpretation Comments ABO/Rh (test code = ABO/Rh) A POS [facility] [employer] [id number] 07:51:00 Test Item Value Reference Range Interpretation Comments Antibody Scrn (test Negative (09/04/14 1:51 code = Antibody Scrn) AM) [facility] [employer] [id number] 07:51:00 Test Item Value Reference Range Interpretation Comments Albumin Lvl (test code = Albumin Lvl) 3.4 3.5-5.0 [facility]2015-01-23 07:51:00 Test Item Value Reference Range Interpretation Comments Alk Phos (test code = Alk Phos) 64 39-136 [facility]2015-01-23 07:51:00 Test Item Value Reference Range Interpretation Comments ALT (test code = ALT) 18 See_Comment [Auto mated message] The system which ge nerated this result transmit gaye reference range : <=65. The reference range was not used to interpr et this result as satish l/abnormal. [facility]2015-01-23 07:51:00 Test Item Value Reference Range Interpretation Comments AST (test code = AST) 12 See_Comment [Auto mated message] The system which ge nerated this result transmit gaye reference range : <=37. The reference range was not used to interpr et this result as satish l/abnormal. [facility]2015-01-23 07:51:00 Test Item Value Reference Range Interpretation Comments eGFR (test code = eGFR) 93 [facility]2015-01-23 07:51:00 Test Item Value Reference Range Interpretation Comments Bili Total (test code = Bili Total) 0.3 0.2-1.3 [facility]2015-01-23 07:51:00 Test Item Value Reference Range Interpretation Comments Chloride Lvl (test code = Chloride Lvl) 108 95-109 [facility]2015-01-23 07:51:00 Test Item Value Reference Range Interpretation Comments Sodium Lvl (test code = Sodium Lvl) 138 135-145 [facility]2015-01-23 07:51:00 Test Item Value Reference Range Interpretation Comments Potassium Lvl (test code = Potassium 3.9 3.5-5.1 Lvl) [facility]2015-01-23 07:51:00 Test Item Value Reference Range Interpretation Comments CO2 (test code = CO2) 22 24-32 [facility]2015-01-23 07:51:00 Test Item Value Reference Range Interpretation Comments Calcium Lvl (test code = Calcium Lvl) 8.8 8.5-10.5 [place] [id number] 07:51:00 Test Item Value Reference Range Interpretation Comments Glucose Lvl (test code = Glucose Lvl) 98 70-99 [facility] [employer] [id number] 07:51:00 Test Item Value Reference Range Interpretation Comments Total Protein (test code = Total 7.3 6.4-8.4 Protein) [facility] [id number] 07:51:00 Test Item Value Reference Range Interpretation Comments BUN (test code = BUN) 12 7-22 [facility] [employer] [id number] 07:51:00 Test Item Value Reference Range Interpretation Comments Creatinine Lvl (test code = Creatinine 0.8 0.5-1.4 Lvl) [facility] [employer]2015-01-23 07:51:00 Test Item Value Reference Range Interpretation Comments AGAP (test code = AGAP) 11.9 10.0-20.0 [facility] [employer] [id number] 07:51:00 Test Item Value Reference Range Interpretation Comments B/C Ratio (test code = B/C Ratio) 15 6-25 [facility] [employer] [id number] 07:51:00 Test Item Value Reference Range Interpretation Comments ABO/Rh (test code = ABO/Rh) A POS [facility] [employer] [id number] 07:51:00 Test Item Value Reference Range Interpretation Comments Antibody Scrn (test Negative (09/04/14 1:51 code = Antibody Scrn) AM) [facility] [employer] [id number] 07:51:00 Test Item Value Reference Range Interpretation Comments Albumin Lvl (test code = Albumin Lvl) 3.4 3.5-5.0 [facility] [employer] [id number] 07:51:00 Test Item Value Reference Range Interpretation Comments Alk Phos (test code = Alk Phos) 64 39-136 [facility] [employer] [id number] 07:51:00 Test Item Value Reference Range Interpretation Comments ALT (test code = ALT) 18 See_Comment [Auto mated message] The system which ge nerated this result transmit gaye reference range : <=65. The reference range was not used to interpr et this result as satish l/abnormal. [employer] [id number] 07:51:00 Test Item Value Reference Range Interpretation Comments AST (test code = AST) 12 See_Comment [Auto mated message] The system which ge nerated this result transmit gaye reference range : <=37. The reference range was not used to interpr et this result as satish l/abnormal. [facility]2015-01-23 07:51:00 Test Item Value Reference Range Interpretation Comments eGFR (test code = eGFR) 93 [facility]2015-01-23 07:51:00 Test Item Value Reference Range Interpretation Comments Bili Total (test code = Bili Total) 0.3 0.2-1.3 [facility]2015-01-23 07:51:00 Test Item Value Reference Range Interpretation Comments Chloride Lvl (test code = Chloride Lvl) 108 95-109 [facility]2015-01-23 07:51:00 Test Item Value Reference Range Interpretation Comments Sodium Lvl (test code = Sodium Lvl) 138 135-145 [facility]2015-01-23 07:51:00 Test Item Value Reference Range Interpretation Comments Potassium Lvl (test code = Potassium 3.9 3.5-5.1 Lvl) [facility]2015-01-23 07:51:00 Test Item Value Reference Range Interpretation Comments CO2 (test code = CO2) 22 24-32 [facility]2015-01-23 07:51:00 Test Item Value Reference Range Interpretation Comments Calcium Lvl (test code = Calcium Lvl) 8.8 8.5-10.5 [facility]2015-01-23 07:51:00 Test Item Value Reference Range Interpretation Comments Glucose Lvl (test code = Glucose Lvl) 98 70-99 [facility]2015-01-23 07:51:00 Test Item Value Reference Range Interpretation Comments Total Protein (test code = Total 7.3 6.4-8.4 Protein) [facility]2015-01-23 07:51:00 Test Item Value Reference Range Interpretation Comments BUN (test code = BUN) 12 - [facility]2015-01-23 07:51:00 Test Item Value Reference Range Interpretation Comments Creatinine Lvl (test code = Creatinine 0.8 0.5-1.4 Lvl) [facility]2015-01-23 07:51:00 Test Item Value Reference Range Interpretation Comments AGAP (test code = AGAP) 11.9 10.0-20.0 [facility]2015-01-23 07:51:00 Test Item Value Reference Range Interpretation Comments B/C Ratio (test code = B/C Ratio) 15 6-25 [facility]2015-01-23 07:51:00 Test Item Value Reference Range Interpretation Comments Globulin (test code = Globulin) 3.9 2.0-4.0 [facility]2015-01-23 07:51:00 Test Item Value Reference Range Interpretation Comments A/G Ratio (test code = A/G Ratio) 0.9 0.7-1.6 [id number] 07:51:00 Test Item Value Reference Range Interpretation Comments hCG Tot (test code = hCG Tot) no gt [id number] 07:51:00 Test Item Value Reference Range Interpretation Comments MCHC (test code = MCHC) 33.8 32.0-36.0 [facility] C[id number] 07:51:00 Test Item Value Reference Range Interpretation Comments MCH (test code = MCH) 30.3 pg 27.0-31.0 [facility] Cent[id number] 07:51:00 Test Item Value Reference Range Interpretation Comments RDW (test code = RDW) 13.0 11.5-14.5 [facility] CenterOyntbcuVOYKPDLRZT9562-47-01 07:51:00 Test Item Value Reference Range Interpretation Comments MPV (test code = MPV) 8.4 7.4-10.4 [facility] CenterFupmtbqDOKRQWQQWP2004-16-01 07:51:00 Test Item Value Reference Range Interpretation Comments Platelet (test code = Platelet) 356 133-450 [facility] CenterStymikrDCNQFGHFUH8599-99-10 07:51:00 Test Item Value Reference Range Interpretation Comments RBC (test code = RBC) 4.45 4.20-5.40 [facility] CenterTwyvqpjLNCHEXMDIS9728-32-79 07:51:00 Test Item Value Reference Range Interpretation Comments WBC (test code = WBC) 12.9 3.7-10.4 [facility] CenterWurlgnbXKZJEFVOAJ0736-58-64 07:51:00 Test Item Value Reference Range Interpretation Comments Hgb (test code = Hgb) 13.5 12.0-16.0 [facility] CenterRvfbimjZQPLMRDAAJ4215-81-61 07:51:00 Test Item Value Reference Range Interpretation Comments MCV (test code = MCV) 89.7 80.0-98.0 [facility] CenterIwjoykxKLQJNOYZPE6943-98-35 07:51:00 Test Item Value Reference Range Interpretation Comments Hct (test code = Hct) 39.9 36.0-48.0 [facility] CenterQutndsaGNEIFBXCFK9290-05-73 07:51:00 Test Item Value Reference Range Interpretation Comments Eosinophils # (test code 0.3 See_Comment [A utomated message] The = Eosinophils #) system whic h generated this result tra nsmitted reference range : <=0.5. The reference r ozzy was not used to int erpret this result as normal/abnormal . [facility] CenterHrhfehiJSGNUYMMCZ8693-58-59 07:51:00 Test Item Value Reference Range Interpretation Comments Lymphocytes # (test code = Lymphocytes 3.6 1.0-5.5 #) [facility] CenterOuykerhGUCUNHURKV9214-91-03 07:51:00 Test Item Value Reference Range Interpretation Comments Monocytes # (test code 0.7 See_Comment [Aut omated message] The = Monocytes #) system which generated this result tra nsmitted reference range : <=0.8. The reference r ozzy was not used to int erpret this result as normal/abnormal . [facility] CenterQnigzhtAEHPOHFSVT9985-33-10 07:51:00 Test Item Value Reference Range Interpretation Comments Segs (test code = Segs) 63.9 45.0-75.0 [facility] CenterFyjwekfSPZOFKFCTH5998-06-01 07:51:00 Test Item Value Reference Range Interpretation Comments Segs-Bands # (test code = Segs-Bands #) 8.2 1.5-8.1 [facility] CenterStiqfijQZREHAMTRH2082-17-00 07:51:00 Test Item Value Reference Range Interpretation Comments Basophils (test code = 0.7 See_Comment [Aut omated message] The Basophils) system which ge nerated this result tra nsmitted reference range : <=1.0. The reference r ozzy was not used to int erpret this result as normal/abnormal . [facility] CenterGfkvccuQQXJLDEQZK3558-28-49 07:51:00 Test Item Value Reference Range Interpretation Comments Monocytes (test code = Monocytes) 5.4 2.0-12.0 [facility] CenterUoektrqSPJXDNZHXK5943-51-98 07:51:00 Test Item Value Reference Range Interpretation Comments Eosinophils (test code = 2.3 See_Comment [A utomated message] The Eosinophils) system which ge nerated this result tra nsmitted reference range : <=4.0. The reference r ozzy was not used to int erpret this result as normal/abnormal . [facility] CenterQrelnubMHEQMIYGQE6113-31-13 07:51:00 Test Item Value Reference Range Interpretation Comments Lymphocytes (test code = Lymphocytes) 27.7 20.0-40.0 [facility] CenterWubqxqqONENBFXMJN2586-52-15 07:51:00 Test Item Value Reference Range Interpretation Comments Basophils # (test code 0.1 See_Comment [Aut omated message] The = Basophils #) system which generated this result tra nsmitted reference range : <=0.2. The reference r ozzy was not used to int erpret this result as normal/abnormal . [facility] AND [id number] 07:51:00 Test Item Value Reference Range Interpretation Comments UA Urobilinogen (test code = UA 1.0 0.1-1.0 Urobilinogen) [facility] AND [id number] 07:51:00 Test Item Value Reference Range Interpretation Comments UA Turbidity (test code Cloudy *ABN*(09/04/14 = UA Turbidity) 1:51 AM) [facility] AND [id number] 07:51:00 Test Item Value Reference Range Interpretation Comments UA Color (test code = Red *ABN*(09/04/14 1:51 UA Color) AM) [facility] AND [id number] 07:51:00 Test Item Value Reference Range Interpretation Comments UA Ketones (test code Negative *NA*(09/04/14 = UA Ketones) 1:51 AM) [facility] AND [id number] 07:51:00 Test Item Value Reference Range Interpretation Comments UA Glucose (test code Negative (09/04/14 1:51 = UA Glucose) AM) [facility] AND [id number] 07:51:00 Test Item Value Reference Range Interpretation Comments UA Protein (test code = Trace *ABN*(09/04/14 UA Protein) 1:51 AM) [facility] AND [id number] 07:51:00 Test Item Value Reference Range Interpretation Comments UA pH (test code = UA pH) 8.0 1 5.0-8.0 [facility] AND [id number] 07:51:00 Test Item Value Reference Range Interpretation Comments UA Spec Grav (test code = UA Spec 1.015 1 Grav) [facility] AND [id number] 07:51:00 Test Item Value Reference Range Interpretation Comments UA Bili (test code = Negative *NA*(09/04/14 UA Bili) 1:51 AM) [facility] AND [id number] 07:51:00 Test Item Value Reference Range Interpretation Comments UA Blood (test code = Large *ABN*(09/04/14 UA Blood) 1:51 AM) [facility] AND [id number] 07:51:00 Test Item Value Reference Range Interpretation Comments UA Leuk Est (test Negative (09/04/14 1:51 code = UA Leuk Est) AM) [facility] AND [id number] 07:51:00 Test Item Value Reference Range Interpretation Comments UA Nitrite (test code Negative (09/04/14 1:51 = UA Nitrite) AM) [facility] AND [id number] 07:51:00 Test Item Value Reference Range Interpretation Comments UA Amorph Joselin (test code = UA Few /HPF Amorph Joselin) [facility] AND [id number] 07:51:00 Test Item Value Reference Range Interpretation Comments UA RBC (test code 51-100 /HPF See_Comment [Automate d message] The = UA RBC) system which ge nerated this result tra nsmitted reference range : <=2. The reference r ozzy was not used to int erpret this result as normal/abnormal . [facility] AND [id number] 07:51:00 Test Item Value Reference Range Interpretation Comments UA WBC (test code = UA WBC) 6-10 /HPF [facility] AND [id number] 07:51:00 Test Item Value Reference Range Interpretation Comments UA Bacteria (test code = UA Few /HPF Bacteria) [facility] AND [id number] 07:51:00 Test Item Value Reference Range Interpretation Comments UA Sq Epi (test code = UA Sq Occasional /LPF Epi) [facility]2015-01-12 19:24:00 Test Item Value Reference Range Interpretation Comments Lipase Lvl (test code = Lipase Lvl) 104 73-393 [facility]2015-01-12 19:24:00 Test Item Value Reference Range Interpretation Comments eGFR (test code = eGFR) 109 [facility]2015-01-12 19:24:00 Test Item Value Reference Range Interpretation Comments Bili Total (test code = Bili Total) 0.6 0.2-1.3 [facility]2015-01-12 19:24:00 Test Item Value Reference Range Interpretation Comments Alk Phos (test code = Alk Phos) 72 39-136 [facility]2015-01-12 19:24:00 Test Item Value Reference Range Interpretation Comments Calcium Lvl (test code = Calcium Lvl) 8.8 8.5-10.5 [facility]2015-01-12 19:24:00 Test Item Value Reference Range Interpretation Comments CO2 (test code = CO2) 28 24-32 [facility]2015-01-12 19:24:00 Test Item Value Reference Range Interpretation Comments Chloride Lvl (test code = Chloride Lvl) 107 95-109 [facility]2015-01-12 19:24:00 Test Item Value Reference Range Interpretation Comments Potassium Lvl (test code = Potassium 3.9 3.5-5.1 Lvl) [facility]2015-01-12 19:24:00 Test Item Value Reference Range Interpretation Comments Glucose Lvl (test code = Glucose Lvl) 90 70-99 [facility]2015-01-12 19:24:00 Test Item Value Reference Range Interpretation Comments Sodium Lvl (test code = Sodium Lvl) 138 135-145 [facility]2015-01-12 19:24:00 Test Item Value Reference Range Interpretation Comments BUN (test code = BUN) 7 7-22 [facility]2015-01-12 19:24:00 Test Item Value Reference Range Interpretation Comments Creatinine Lvl (test code = Creatinine 0.7 0.5-1.4 Lvl) [facility]2015-01-12 19:24:00 Test Item Value Reference Range Interpretation Comments ALT (test code = ALT) 23 See_Comment [Auto mated message] The system which ge nerated this result transmit gaye reference range : <=65. The reference range was not used to interpr et this result as satish l/abnormal. [facility]2015-01-12 19:24:00 Test Item Value Reference Range Interpretation Comments AST (test code = AST) 12 See_Comment [Auto mated message] The system which ge nerated this result transmit gaye reference range : <=37. The reference range was not used to interpr et this result as satish l/abnormal. [facility]2015-01-12 19:24:00 Test Item Value Reference Range Interpretation Comments Albumin Lvl (test code = Albumin Lvl) 3.8 3.5-5.0 [facility]2015-01-12 19:24:00 Test Item Value Reference Range Interpretation Comments Total Protein (test code = Total 8.0 6.4-8.4 Protein) [facility]2015-01-12 19:24:00 Test Item Value Reference Range Interpretation Comments A/G Ratio (test code = A/G Ratio) 0.9 0.7-1.6 [facility]2015-01-12 19:24:00 Test Item Value Reference Range Interpretation Comments AGAP (test code = AGAP) 6.9 10.0-20.0 [facility]2015-01-12 19:24:00 Test Item Value Reference Range Interpretation Comments B/C Ratio (test code = B/C Ratio) 10 6-25 [facility]2015-01-12 19:24:00 Test Item Value Reference Range Interpretation Comments Globulin (test code = Globulin) 4.2 2.0-4.0 [facility]kb[facility]qsQRIGXLOCJLMYY0739-[facility]-99 19:24:00 Test Item Value Reference Range Interpretation Comments S Preg (test code = S Negative *NA*(08/24/14 Preg) 1:24 PM) [facility] CenterSpvrwpfIZAIUDTRQD7724-69-18 19:24:00 Test Item Value Reference Range Interpretation Comments WBC (test code = WBC) 11.3 3.7-10.4 [facility] CenterSvybvelZBUXAJCHRZ8807-28-28 19:24:00 Test Item Value Reference Range Interpretation Comments RBC (test code = RBC) 4.75 4.20-5.40 [facility] CenterOchmbguJUSGHWQULR9845-37-03 19:24:00 Test Item Value Reference Range Interpretation Comments Platelet (test code = Platelet) 402 133-450 [facility] CenterIcgsttpPVXNFNJOGT5652-73-78 19:24:00 Test Item Value Reference Range Interpretation Comments MCV (test code = MCV) 89.9 80.0-98.0 [facility] CenterEdwhoytDLOSISDNQP8531-54-16 19:24:00 Test Item Value Reference Range Interpretation Comments Hct (test code = Hct) 42.7 36.0-48.0 [facility] CenterBkibiflQRPEXDCPTA0005-23-98 19:24:00 Test Item Value Reference Range Interpretation Comments Hgb (test code = Hgb) 14.5 12.0-16.0 [facility] CenterYuqpvclOIBNGWQMAV0808-22-03 19:24:00 Test Item Value Reference Range Interpretation Comments RDW (test code = RDW) 13.5 11.5-14.5 [facility] CenterRxsnbzeEHYTSWSLMS2367-58-10 19:24:00 Test Item Value Reference Range Interpretation Comments MCHC (test code = MCHC) 34.0 32.0-36.0 [facility] CenterWbrqywtXPCBMMXJKC0644-06-81 19:24:00 Test Item Value Reference Range Interpretation Comments MCH (test code = MCH) 30.6 pg 27.0-31.0 [facility] CenterTnrziylDASBUJXMRJ1315-61-12 19:24:00 Test Item Value Reference Range Interpretation Comments MPV (test code = MPV) 8.1 7.4-10.4 [facility] CenterNkypyzhVJMDBMURSC5679-46-22 19:24:00 Test Item Value Reference Range Interpretation Comments Stomatocyte (test code = Stomatocyte) Slight [facility] CenterBfhpptdIVAYFBJHEG7464-89-17 19:24:00 Test Item Value Reference Range Interpretation Comments Basophils # (test code 0.1 See_Comment [Aut omated message] The = Basophils #) system which generated this result tra nsmitted reference range : <=0.2. The reference r ozzy was not used to int erpret this result as normal/abnormal . [facility] CenterDznpuelFAKTFFHKZZ4540-50-45 19:24:00 Test Item Value Reference Range Interpretation Comments Eosinophils # (test code 0.2 See_Comment [A utomated message] The = Eosinophils #) system whic h generated this result tra nsmitted reference range : <=0.5. The reference r ozzy was not used to int erpret this result as normal/abnormal . [facility] CenterUgtkudhOWGLJGJBPQ6476-58-50 19:24:00 Test Item Value Reference Range Interpretation Comments Hypochrom (test code = 1+ (08/24/14 1:24 PM) Hypochrom) [facility] CenterNmdosiwBKHNULUDQH1712-80-79 19:24:00 Test Item Value Reference Range Interpretation Comments Lymphocytes # (test code = Lymphocytes 2.8 1.0-5.5 #) [facility] CenterSqpduifFJJBJNYMGP2364-96-72 19:24:00 Test Item Value Reference Range Interpretation Comments Segs-Bands # (test code = Segs-Bands #) 8.1 1.5-8.1 [facility] CenterFscncaeVTYSYRUGGK1022-26-61 19:24:00 Test Item Value Reference Range Interpretation Comments Monocytes # (test code 0.2 See_Comment [Aut omated message] The = Monocytes #) system which generated this result tra nsmitted reference range : <=0.8. The reference r ozzy was not used to int erpret this result as normal/abnormal . [facility] CenterBoxgjgiUWSPMTQOSO8439-56-24 19:24:00 Test Item Value Reference Range Interpretation Comments Lymphocytes (test code = Lymphocytes) 24.5 20.0-40.0 [facility] CenterQwdlxpqASPHQAIZRV1295-19-65 19:24:00 Test Item Value Reference Range Interpretation Comments Segs (test code = Segs) 71.8 45.0-75.0 [facility] CenterKavxdxlTEVRXTGKUI3939-72-91 19:24:00 Test Item Value Reference Range Interpretation Comments Basophils (test code = 0.6 See_Comment [Aut omated message] The Basophils) system which ge nerated this result tra nsmitted reference range : <=1.0. The reference r ozzy was not used to int erpret this result as normal/abnormal . [facility] CenterVdcinrlUKDDGFKFBM6016-52-36 19:24:00 Test Item Value Reference Range Interpretation Comments Monocytes (test code = Monocytes) 1.5 2.0-12.0 [facility] CenterPnqljrvRZGTKNZDQF9653-77-72 19:24:00 Test Item Value Reference Range Interpretation Comments Eosinophils (test code = 1.6 See_Comment [A utomated message] The Eosinophils) system which ge nerated this result tra nsmitted reference range : <=4.0. The reference r ozzy was not used to int erpret this result as normal/abnormal . [facility]Xny[facility]dfvAGANSPKIUP0305-26-46 19:24:00 Test Item Value Reference Range Interpretation Comments Plt Morph (test code = Normal (08/24/14 1:24 Plt Morph) PM) [facility] AND [id number] 19:24:00 Test Item Value Reference Range Interpretation Comments UA Sq Epi (test code = UA Sq Occasional /LPF Epi) [facility] AND [id number] 19:24:00 Test Item Value Reference Range Interpretation Comments UA Bacteria (test code = UA Occasional /HPF Bacteria) [facility] AND [id number] 19:24:00 Test Item Value Reference Range Interpretation Comments UA Mucus (test code = None Seen (08/24/14 UA Mucus) 1:24 PM) [facility] AND [id number] 19:24:00 Test Item Value Reference Range Interpretation Comments UA WBC (test code = UA WBC) 0-2 /HPF [facility] AND [id number] 19:24:00 Test Item Value Reference Range Interpretation Comments UA RBC (test code = 0-2 /HPF See_Comment [Automa gaye message] The UA RBC) system which ge nerated this result tra nsmitted reference range : <=2. The reference range was not used to interpr et this result as satish l/abnormal. [facility] AND [id number] 19:24:00 Test Item Value Reference Range Interpretation Comments UA Leuk Est (test Moderate *ABN*(08/24/14 code = UA Leuk Est) 1:24 PM) [facility] AND [id number] 19:24:00 Test Item Value Reference Range Interpretation Comments UA Nitrite (test code Negative (08/24/14 1:24 = UA Nitrite) PM) [facility] AND [id number] 19:24:00 Test Item Value Reference Range Interpretation Comments UA Urobilinogen (test code = UA 0.2 0.1-1.0 Urobilinogen) [facility] AND [id number] 19:24:00 Test Item Value Reference Range Interpretation Comments UA Ketones (test code Negative *NA*(08/24/14 = UA Ketones) 1:24 PM) [facility] [id number] 19:24:00 Test Item Value Reference Range Interpretation Comments UA Blood (test code = Negative (08/24/14 1:24 UA Blood) PM) [facility] AND [id number] 19:24:00 Test Item Value Reference Range Interpretation Comments UA Bili (test code = Negative *NA*(08/24/14 UA Bili) 1:24 PM) [facility] AND [id number] 19:24:00 Test Item Value Reference Range Interpretation Comments UA Color (test code = Yellow *NA*(08/24/14 UA Color) 1:24 PM) [facility] AND [id number] 19:24:00 Test Item Value Reference Range Interpretation Comments UA Glucose (test code Negative (08/24/14 1:24 = UA Glucose) PM) [facility] AND [id number] 19:24:00 Test Item Value Reference Range Interpretation Comments UA Protein (test code Negative (08/24/14 1:24 = UA Protein) PM) [facility] AND [id number] 19:24:00 Test Item Value Reference Range Interpretation Comments UA pH (test code = UA pH) 6.0 1 5.0-8.0 [facility] AND [id number] 19:24:00 Test Item Value Reference Range Interpretation Comments UA Spec Grav (test code *NA*(08/24/14 1:24 PM) = UA Spec Grav) [facility] AND [id number] 19:24:00 Test Item Value Reference Range Interpretation Comments UA Turbidity (test code = Clear (08/24/14 1:24 UA Turbidity) PM) [facility] [id number] 19:24:00 Test Item Value Reference Range Interpretation Comments Lipase Lvl (test code = Lipase Lvl) 104 73-393 [facility]CHE[facility] [id number] 19:24:00 Test Item Value Reference Range Interpretation Comments eGFR (test code = eGFR) 109 [facility] [id number] 19:24:00 Test Item Value Reference Range Interpretation Comments Bili Total (test code = Bili Total) 0.6 0.2-1.3 [facility]2015-01-12 19:24:00 Test Item Value Reference Range Interpretation Comments Alk Phos (test code = Alk Phos) 72 39-136 [facility]2015-01-12 19:24:00 Test Item Value Reference Range Interpretation Comments Calcium Lvl (test code = Calcium Lvl) 8.8 8.5-10.5 [place] [id number] 19:24:00 Test Item Value Reference Range Interpretation Comments CO2 (test code = CO2) 28 24-32 [facility]2015-01-12 19:24:00 Test Item Value Reference Range Interpretation Comments Chloride Lvl (test code = Chloride Lvl) 107 95-109 [facility]2015-01-12 19:24:00 Test Item Value Reference Range Interpretation Comments Potassium Lvl (test code = Potassium 3.9 3.5-5.1 Lvl) [facility]2015-01-12 19:24:00 Test Item Value Reference Range Interpretation Comments Glucose Lvl (test code = Glucose Lvl) 90 70-99 [facility]2015-01-12 19:24:00 Test Item Value Reference Range Interpretation Comments Sodium Lvl (test code = Sodium Lvl) 138 135-145 [facility]2015-01-12 19:24:00 Test Item Value Reference Range Interpretation Comments BUN (test code = BUN) 7 7-22 [facility]2015-01-12 19:24:00 Test Item Value Reference Range Interpretation Comments Creatinine Lvl (test code = Creatinine 0.7 0.5-1.4 Lvl) [facility]2015-01-12 19:24:00 Test Item Value Reference Range Interpretation Comments ALT (test code = ALT) 23 See_Comment [Auto mated message] The system which ge nerated this result transmit gaye reference range : <=65. The reference range was not used to interpr et this result as satish l/abnormal. [place] [id number] 19:24:00 Test Item Value Reference Range Interpretation Comments AST (test code = AST) 12 See_Comment [Auto mated message] The system which ge nerated this result transmit gaye reference range : <=37. The reference range was not used to interpr et this result as satish l/abnormal. [facility]2015-01-12 19:24:00 Test Item Value Reference Range Interpretation Comments Albumin Lvl (test code = Albumin Lvl) 3.8 3.5-5.0 [facility]2015-01-12 19:24:00 Test Item Value Reference Range Interpretation Comments Total Protein (test code = Total 8.0 6.4-8.4 Protein) [facility]2015-01-12 19:24:00 Test Item Value Reference Range Interpretation Comments A/G Ratio (test code = A/G Ratio) 0.9 0.7-1.6 [facility]2015-01-12 19:24:00 Test Item Value Reference Range Interpretation Comments AGAP (test code = AGAP) 6.9 10.0-20.0 [facility]2015-01-12 19:24:00 Test Item Value Reference Range Interpretation Comments B/C Ratio (test code = B/C Ratio) 10 6-25 [facility]2015-01-12 19:24:00 Test Item Value Reference Range Interpretation Comments Globulin (test code = Globulin) 4.2 2.0-4.0 [id number] 19:24:00 Test Item Value Reference Range Interpretation Comments S Preg (test code = S Negative *NA*(08/24/14 Preg) 1:24 PM) [facility]OqjhxjyNXLTQMEIOF9749-81-92 19:24:00 Test Item Value Reference Range Interpretation Comments WBC (test code = WBC) 11.3 3.7-10.4 [facility] CenterJaxklmoFUVGEDYUEK7553-80-66 19:24:00 Test Item Value Reference Range Interpretation Comments RBC (test code = RBC) 4.75 4.20-5.40 [facility] CenterPohganuGSSUGRUGXQ1432-85-12 19:24:00 Test Item Value Reference Range Interpretation Comments Platelet (test code = Platelet) 402 133-450 [facility] CenterXqzyvfpXFFNMJMMCE8240-35-48 19:24:00 Test Item Value Reference Range Interpretation Comments MCV (test code = MCV) 89.9 80.0-98.0 [facility] CenterJgksmbgLBRXPMOANM5334-79-69 19:24:00 Test Item Value Reference Range Interpretation Comments Hct (test code = Hct) 42.7 36.0-48.0 [facility] CenterUhlshrqRGKNJNDTZE4155-85-62 19:24:00 Test Item Value Reference Range Interpretation Comments Hgb (test code = Hgb) 14.5 12.0-16.0 [facility] CenterChsbdmzKFIPNYJUUX7326-00-57 19:24:00 Test Item Value Reference Range Interpretation Comments RDW (test code = RDW) 13.5 11.5-14.5 [facility] CenterYsoqeysHQGPVFPWGB6644-67-88 19:24:00 Test Item Value Reference Range Interpretation Comments MCHC (test code = MCHC) 34.0 32.0-36.0 [facility] Cent[id number] 19:24:00 Test Item Value Reference Range Interpretation Comments MCH (test code = MCH) 30.6 pg 27.0-31.0 [facility] CenterCfmdhznFUQDJQCLQD3247-29-23 19:24:00 Test Item Value Reference Range Interpretation Comments MPV (test code = MPV) 8.1 7.4-10.4 [facility] CenterUknqqsqVZDPHCWFFQ4052-21-74 19:24:00 Test Item Value Reference Range Interpretation Comments Stomatocyte (test code = Stomatocyte) Slight [facility] CenterN[id number] 19:24:00 Test Item Value Reference Range Interpretation Comments Basophils # (test code 0.1 See_Comment [Aut omated message] The = Basophils #) system which generated this result tra nsmitted reference range : <=0.2. The reference r ozzy was not used to int erpret this result as normal/abnormal . [facility] CenterXbcacigOFJNLSLCCQ6685-72-86 19:24:00 Test Item Value Reference Range Interpretation Comments Eosinophils # (test code 0.2 See_Comment [A utomated message] The = Eosinophils #) system whic h generated this result tra nsmitted reference range : <=0.5. The reference r ozzy was not used to int erpret this result as normal/abnormal . [facility] Cent[id number] 19:24:00 Test Item Value Reference Range Interpretation Comments Hypochrom (test code = 1+ (08/24/14 1:24 PM) Hypochrom) [facility] CenterGkzcnkgWBGRKLJVJH1190-52-57 19:24:00 Test Item Value Reference Range Interpretation Comments Lymphocytes # (test code = Lymphocytes 2.8 1.0-5.5 #) [facility] [id number] 19:24:00 Test Item Value Reference Range Interpretation Comments Segs-Bands # (test code = Segs-Bands #) 8.1 1.5-8.1 [facility] Cent[id number] 19:24:00 Test Item Value Reference Range Interpretation Comments Monocytes # (test code 0.2 See_Comment [Aut omated message] The = Monocytes #) system which generated this result tra nsmitted reference range : <=0.8. The reference r ozzy was not used to int erpret this result as normal/abnormal . [facility] CenterRapdmppGKWZIRXGYP5949-13-76 19:24:00 Test Item Value Reference Range Interpretation Comments Lymphocytes (test code = Lymphocytes) 24.5 20.0-40.0 [facility] Cent[id number] 19:24:00 Test Item Value Reference Range Interpretation Comments Segs (test code = Segs) 71.8 45.0-75.0 [facility] CenterRiilbbbGRDDCIJENE0303-86-26 19:24:00 Test Item Value Reference Range Interpretation Comments Basophils (test code = 0.6 See_Comment [Aut omated message] The Basophils) system which ge nerated this result tra nsmitted reference range : <=1.0. The reference r ozzy was not used to int erpret this result as normal/abnormal . [facility] CenterDiwguxyXSGLPHWJKK6689-50-00 19:24:00 Test Item Value Reference Range Interpretation Comments Monocytes (test code = Monocytes) 1.5 2.0-12.0 [facility] CenterDeivpvsEPMEWIQYDN8696-30-23 19:24:00 Test Item Value Reference Range Interpretation Comments Eosinophils (test code = 1.6 See_Comment [A utomated message] The Eosinophils) system which ge nerated this result tra nsmitted reference range : <=4.0. The reference r ozzy was not used to int erpret this result as normal/abnormal . [facility] CenterAqjqlrsMBFYUAECFN7344-19-51 19:24:00 Test Item Value Reference Range Interpretation Comments Plt Morph (test code = Normal (08/24/14 1:24 Plt Morph) PM) [facility] AND [id number] 19:24:00 Test Item Value Reference Range Interpretation Comments UA Sq Epi (test code = UA Sq Occasional /LPF Epi) [facility] AND [id number] 19:24:00 Test Item Value Reference Range Interpretation Comments UA Bacteria (test code = UA Occasional /HPF Bacteria) [facility] AND [id number] 19:24:00 Test Item Value Reference Range Interpretation Comments UA Mucus (test code = None Seen (08/24/14 UA Mucus) 1:24 PM) [facility] AND [id number] 19:24:00 Test Item Value Reference Range Interpretation Comments UA WBC (test code = UA WBC) 0-2 /HPF [facility] AND [id number] 19:24:00 Test Item Value Reference Range Interpretation Comments UA RBC (test code = 0-2 /HPF See_Comment [Automa gaye message] The UA RBC) system which ge nerated this result tra nsmitted reference range : <=2. The reference range was not used to interpr et this result as satish l/abnormal. [facility] AND [id number] 19:24:00 Test Item Value Reference Range Interpretation Comments UA Leuk Est (test Moderate *ABN*(08/24/14 code = UA Leuk Est) 1:24 PM) [facility] AND [id number] 19:24:00 Test Item Value Reference Range Interpretation Comments UA Nitrite (test code Negative (08/24/14 1:24 = UA Nitrite) PM) [facility] AND [id number] 19:24:00 Test Item Value Reference Range Interpretation Comments UA Urobilinogen (test code = UA 0.2 0.1-1.0 Urobilinogen) [facility] AND [id number] 19:24:00 Test Item Value Reference Range Interpretation Comments UA Ketones (test code Negative *NA*(08/24/14 = UA Ketones) 1:24 PM) [facility] AND [id number] 19:24:00 Test Item Value Reference Range Interpretation Comments UA Blood (test code = Negative (08/24/14 1:24 UA Blood) PM) [facility] AND [id number] 19:24:00 Test Item Value Reference Range Interpretation Comments UA Bili (test code = Negative *NA*(08/24/14 UA Bili) 1:24 PM) [facility] AND [id number] 19:24:00 Test Item Value Reference Range Interpretation Comments UA Color (test code = Yellow *NA*(08/24/14 UA Color) 1:24 PM) [facility] AND [id number] 19:24:00 Test Item Value Reference Range Interpretation Comments UA Glucose (test code Negative (08/24/14 1:24 = UA Glucose) PM) [facility] AND [id number] 19:24:00 Test Item Value Reference Range Interpretation Comments UA Protein (test code Negative (08/24/14 1:24 = UA Protein) PM) [facility] AND [id number] 19:24:00 Test Item Value Reference Range Interpretation Comments UA pH (test code = UA pH) 6.0 1 5.0-8.0 [facility] AND [id number] 19:24:00 Test Item Value Reference Range Interpretation Comments UA Spec Grav (test code *NA*(08/24/14 1:24 PM) = UA Spec Grav) [facility] AND [id number] 19:24:00 Test Item Value Reference Range Interpretation Comments UA Turbidity (test code = Clear (08/24/14 1:24 UA Turbidity) PM) [facility]2015-01-12 19:24:00 Test Item Value Reference Range Interpretation Comments Lipase Lvl (test code = Lipase Lvl) 104 73-393 [facility]2015-01-12 19:24:00 Test Item Value Reference Range Interpretation Comments eGFR (test code = eGFR) 109 [facility]2015-01-12 19:24:00 Test Item Value Reference Range Interpretation Comments Bili Total (test code = Bili Total) 0.6 0.2-1.3 [facility]2015-01-12 19:24:00 Test Item Value Reference Range Interpretation Comments Alk Phos (test code = Alk Phos) 72 39-136 [facility]2015-01-12 19:24:00 Test Item Value Reference Range Interpretation Comments Calcium Lvl (test code = Calcium Lvl) 8.8 8.5-10.5 [facility]2015-01-12 19:24:00 Test Item Value Reference Range Interpretation Comments CO2 (test code = CO2) 28 24-32 [facility]2015-01-12 19:24:00 Test Item Value Reference Range Interpretation Comments Chloride Lvl (test code = Chloride Lvl) 107 95-109 [facility]2015-01-12 19:24:00 Test Item Value Reference Range Interpretation Comments Potassium Lvl (test code = Potassium 3.9 3.5-5.1 Lvl) [facility]2015-01-12 19:24:00 Test Item Value Reference Range Interpretation Comments Glucose Lvl (test code = Glucose Lvl) 90 70-99 [facility]2015-01-12 19:24:00 Test Item Value Reference Range Interpretation Comments Sodium Lvl (test code = Sodium Lvl) 138 135-145 [facility]2015-01-12 19:24:00 Test Item Value Reference Range Interpretation Comments BUN (test code = BUN) 7 7-22 [place] [id number] 19:24:00 Test Item Value Reference Range Interpretation Comments Creatinine Lvl (test code = Creatinine 0.7 0.5-1.4 Lvl) [facility]2015-01-12 19:24:00 Test Item Value Reference Range Interpretation Comments ALT (test code = ALT) 23 See_Comment [Auto mated message] The system which ge nerated this result transmit gaye reference range : <=65. The reference range was not used to interpr et this result as satish l/abnormal. [facility]2015-01-12 19:24:00 Test Item Value Reference Range Interpretation Comments AST (test code = AST) 12 See_Comment [Auto mated message] The system which ge nerated this result transmit gaye reference range : <=37. The reference range was not used to interpr et this result as satish l/abnormal. [facility]2015-01-12 19:24:00 Test Item Value Reference Range Interpretation Comments Albumin Lvl (test code = Albumin Lvl) 3.8 3.5-5.0 [facility]2015-01-12 19:24:00 Test Item Value Reference Range Interpretation Comments Total Protein (test code = Total 8.0 6.4-8.4 Protein) [facility]2015-01-12 19:24:00 Test Item Value Reference Range Interpretation Comments A/G Ratio (test code = A/G Ratio) 0.9 0.7-1.6 [facility]2015-01-12 19:24:00 Test Item Value Reference Range Interpretation Comments AGAP (test code = AGAP) 6.9 10.0-20.0 [facility]2015-01-12 19:24:00 Test Item Value Reference Range Interpretation Comments B/C Ratio (test code = B/C Ratio) 10 6-25 [facility]2015-01-12 19:24:00 Test Item Value Reference Range Interpretation Comments Globulin (test code = Globulin) 4.2 2.0-4.0 [id number] 19:24:00 Test Item Value Reference Range Interpretation Comments S Preg (test code = S Negative *NA*(08/24/14 Preg) 1:24 PM) [facility] CenterGwgoudzTKAZDRDUNM5954-80-48 19:24:00 Test Item Value Reference Range Interpretation Comments WBC (test code = WBC) 11.3 3.7-10.4 [facility] CenterEoljhxlAIONQXUEDL2750-56-97 19:24:00 Test Item Value Reference Range Interpretation Comments RBC (test code = RBC) 4.75 4.20-5.40 [facility] CenterCqzzsawWMWKZUNLBA8724-87-92 19:24:00 Test Item Value Reference Range Interpretation Comments Platelet (test code = Platelet) 402 133-450 [facility] CenterHkrbsufKMTZNQBOJJ2509-99-24 19:24:00 Test Item Value Reference Range Interpretation Comments MCV (test code = MCV) 89.9 80.0-98.0 [facility] CenterJxmtnifZBQOVSYTFL2098-41-67 19:24:00 Test Item Value Reference Range Interpretation Comments Hct (test code = Hct) 42.7 36.0-48.0 [facility] CenterOyzuirwZXBQYZWKQN7302-08-42 19:24:00 Test Item Value Reference Range Interpretation Comments Hgb (test code = Hgb) 14.5 12.0-16.0 [facility] CenterUesoaykXJLXNQVHND9477-06-57 19:24:00 Test Item Value Reference Range Interpretation Comments RDW (test code = RDW) 13.5 11.5-14.5 [facility] CenterDoxppxwWSNBFCKOID5854-84-48 19:24:00 Test Item Value Reference Range Interpretation Comments MCHC (test code = MCHC) 34.0 32.0-36.0 [facility] CenterFjldwzbOJPSENTTVE5211-71-10 19:24:00 Test Item Value Reference Range Interpretation Comments MCH (test code = MCH) 30.6 pg 27.0-31.0 [facility] CenterTtffvgqMXNDDSCTCI9073-68-57 19:24:00 Test Item Value Reference Range Interpretation Comments MPV (test code = MPV) 8.1 7.4-10.4 [facility] CenterNjapzktCFYHKDFFQR7337-36-36 19:24:00 Test Item Value Reference Range Interpretation Comments Stomatocyte (test code = Stomatocyte) Slight [facility] Cent[id number] 19:24:00 Test Item Value Reference Range Interpretation Comments Basophils # (test code 0.1 See_Comment [Aut omated message] The = Basophils #) system which generated this result tra nsmitted reference range : <=0.2. The reference r ozzy was not used to int erpret this result as normal/abnormal . [facility] CenterYxkkdicYLQLFJQIGR1724-47-61 19:24:00 Test Item Value Reference Range Interpretation Comments Eosinophils # (test code 0.2 See_Comment [A utomated message] The = Eosinophils #) system whic h generated this result tra nsmitted reference range : <=0.5. The reference r ozzy was not used to int erpret this result as normal/abnormal . [facility] Cent[id number] 19:24:00 Test Item Value Reference Range Interpretation Comments Hypochrom (test code = 1+ (08/24/14 1:24 PM) Hypochrom) [facility] CenterTrmxwrtZVBXVFAMPT8920-28-80 19:24:00 Test Item Value Reference Range Interpretation Comments Lymphocytes # (test code = Lymphocytes 2.8 1.0-5.5 #) [facility] CenterXlraeyfBCRKPFXILV1544-40-20 19:24:00 Test Item Value Reference Range Interpretation Comments Segs-Bands # (test code = Segs-Bands #) 8.1 1.5-8.1 [facility] CenterNercbzuEZABUNNMDE0976-94-89 19:24:00 Test Item Value Reference Range Interpretation Comments Monocytes # (test code 0.2 See_Comment [Aut omated message] The = Monocytes #) system which generated this result tra nsmitted reference range : <=0.8. The reference r ozzy was not used to int erpret this result as normal/abnormal . [facility] CenterJcfohlmKGMVYHGUAD9632-72-60 19:24:00 Test Item Value Reference Range Interpretation Comments Lymphocytes (test code = Lymphocytes) 24.5 20.0-40.0 [facility] CenterKdihbnbUBJFBBTVSV1298-40-40 19:24:00 Test Item Value Reference Range Interpretation Comments Segs (test code = Segs) 71.8 45.0-75.0 [facility] CenterRwlmamoXRDNHSXVPN5934-15-71 19:24:00 Test Item Value Reference Range Interpretation Comments Basophils (test code = 0.6 See_Comment [Aut omated message] The Basophils) system which ge nerated this result tra nsmitted reference range : <=1.0. The reference r ozzy was not used to int erpret this result as normal/abnormal . [facility] CenterUlaolptIGYCBTSSUS8587-55-10 19:24:00 Test Item Value Reference Range Interpretation Comments Monocytes (test code = Monocytes) 1.5 2.0-12.0 [facility] CenterWldqoajRDUBJRXIMZ4258-86-31 19:24:00 Test Item Value Reference Range Interpretation Comments Eosinophils (test code = 1.6 See_Comment [A utomated message] The Eosinophils) system which ge nerated this result tra nsmitted reference range : <=4.0. The reference r ozzy was not used to int erpret this result as normal/abnormal . [facility] CenterDguqrkbSVAPSSAESP3693-12-04 19:24:00 Test Item Value Reference Range Interpretation Comments Plt Morph (test code = Normal (08/24/14 1:24 Plt Morph) PM) [facility] AND [id number] 19:24:00 Test Item Value Reference Range Interpretation Comments UA Sq Epi (test code = UA Sq Occasional /LPF Epi) [facility] AND [id number] 19:24:00 Test Item Value Reference Range Interpretation Comments UA Bacteria (test code = UA Occasional /HPF Bacteria) [facility] AND [id number] 19:24:00 Test Item Value Reference Range Interpretation Comments UA Mucus (test code = None Seen (08/24/14 UA Mucus) 1:24 PM) [facility] AND [id number] 19:24:00 Test Item Value Reference Range Interpretation Comments UA WBC (test code = UA WBC) 0-2 /HPF [facility] AND [id number] 19:24:00 Test Item Value Reference Range Interpretation Comments UA RBC (test code = 0-2 /HPF See_Comment [Automa gaye message] The UA RBC) system which ge nerated this result tra nsmitted reference range : <=2. The reference range was not used to interpr et this result as satish l/abnormal. [facility] AND [id number] 19:24:00 Test Item Value Reference Range Interpretation Comments UA Leuk Est (test Moderate *ABN*(08/24/14 code = UA Leuk Est) 1:24 PM) [facility] AND [id number] 19:24:00 Test Item Value Reference Range Interpretation Comments UA Nitrite (test code Negative (08/24/14 1:24 = UA Nitrite) PM) [facility] AND [id number] 19:24:00 Test Item Value Reference Range Interpretation Comments UA Urobilinogen (test code = UA 0.2 0.1-1.0 Urobilinogen) [facility] AND [id number] 19:24:00 Test Item Value Reference Range Interpretation Comments UA Ketones (test code Negative *NA*(08/24/14 = UA Ketones) 1:24 PM) [facility] AND [id number] 19:24:00 Test Item Value Reference Range Interpretation Comments UA Blood (test code = Negative (08/24/14 1:24 UA Blood) PM) [facility] AND [id number] 19:24:00 Test Item Value Reference Range Interpretation Comments UA Bili (test code = Negative *NA*(08/24/14 UA Bili) 1:24 PM) [facility] AND [id number] 19:24:00 Test Item Value Reference Range Interpretation Comments UA Color (test code = Yellow *NA*(08/24/14 UA Color) 1:24 PM) [facility] AND [id number] 19:24:00 Test Item Value Reference Range Interpretation Comments UA Glucose (test code Negative (08/24/14 1:24 = UA Glucose) PM) [facility] AND [id number] 19:24:00 Test Item Value Reference Range Interpretation Comments UA Protein (test code Negative (08/24/14 1:24 = UA Protein) PM) [facility] AND [id number] 19:24:00 Test Item Value Reference Range Interpretation Comments UA pH (test code = UA pH) 6.0 1 5.0-8.0 [facility] AND [id number] 19:24:00 Test Item Value Reference Range Interpretation Comments UA Spec Grav (test code *NA*(08/24/14 1:24 PM) = UA Spec Grav) [facility] AND [id number] 19:24:00 Test Item Value Reference Range Interpretation Comments UA Turbidity (test code = Clear (08/24/14 1:24 UA Turbidity) PM) [facility]2015-01-12 19:24:00 Test Item Value Reference Range Interpretation Comments Lipase Lvl (test code = Lipase Lvl) 104 73-393 [facility]2015-01-12 19:24:00 Test Item Value Reference Range Interpretation Comments eGFR (test code = eGFR) 109 [facility]2015-01-12 19:24:00 Test Item Value Reference Range Interpretation Comments Bili Total (test code = Bili Total) 0.6 0.2-1.3 [facility]2015-01-12 19:24:00 Test Item Value Reference Range Interpretation Comments Alk Phos (test code = Alk Phos) 72 39-136 [facility]2015-01-12 19:24:00 Test Item Value Reference Range Interpretation Comments Calcium Lvl (test code = Calcium Lvl) 8.8 8.5-10.5 [facility]2015-01-12 19:24:00 Test Item Value Reference Range Interpretation Comments CO2 (test code = CO2) 28 24-32 [facility]2015-01-12 19:24:00 Test Item Value Reference Range Interpretation Comments Chloride Lvl (test code = Chloride Lvl) 107 95-109 [facility]2015-01-12 19:24:00 Test Item Value Reference Range Interpretation Comments Potassium Lvl (test code = Potassium 3.9 3.5-5.1 Lvl) [facility]2015-01-12 19:24:00 Test Item Value Reference Range Interpretation Comments Glucose Lvl (test code = Glucose Lvl) 90 70-99 [facility]2015-01-12 19:24:00 Test Item Value Reference Range Interpretation Comments Sodium Lvl (test code = Sodium Lvl) 138 135-145 [facility]2015-01-12 19:24:00 Test Item Value Reference Range Interpretation Comments BUN (test code = BUN) 7 7-22 [place] 016125-01-12 19:24:00 Test Item Value Reference Range Interpretation Comments Creatinine Lvl (test code = Creatinine 0.7 0.5-1.4 Lvl) [facility]2015-01-12 19:24:00 Test Item Value Reference Range Interpretation Comments ALT (test code = ALT) 23 See_Comment [Auto mated message] The system which ge nerated this result transmit gaye reference range : <=65. The reference range was not used to interpr et this result as satish l/abnormal. [place] 016125-01-12 19:24:00 Test Item Value Reference Range Interpretation Comments AST (test code = AST) 12 See_Comment [Auto mated message] The system which ge nerated this result transmit gaye reference range : <=37. The reference range was not used to interpr et this result as satish l/abnormal. [facility]2015-01-12 19:24:00 Test Item Value Reference Range Interpretation Comments Albumin Lvl (test code = Albumin Lvl) 3.8 3.5-5.0 [facility]2015-01-12 19:24:00 Test Item Value Reference Range Interpretation Comments Total Protein (test code = Total 8.0 6.4-8.4 Protein) [facility]2015-01-12 19:24:00 Test Item Value Reference Range Interpretation Comments A/G Ratio (test code = A/G Ratio) 0.9 0.7-1.6 [place] 016125-01-12 19:24:00 Test Item Value Reference Range Interpretation Comments AGAP (test code = AGAP) 6.9 10.0-20.0 [facility]2015-01-12 19:24:00 Test Item Value Reference Range Interpretation Comments B/C Ratio (test code = B/C Ratio) 10 6-25 [place] 016125-01-12 19:24:00 Test Item Value Reference Range Interpretation Comments Globulin (test code = Globulin) 4.2 2.0-4.0 [facility]AD[facility]WN9512-93-70 19:24:00 Test Item Value Reference Range Interpretation Comments S Preg (test code = S Negative *NA*(08/24/14 Preg) 1:24 PM) [facility] CenterWbedwkeMTONTQUUDN9925-16-32 19:24:00 Test Item Value Reference Range Interpretation Comments WBC (test code = WBC) 11.3 3.7-10.4 [facility] CenterMixjhogWFOBMUBVIP4158-75-66 19:24:00 Test Item Value Reference Range Interpretation Comments RBC (test code = RBC) 4.75 4.20-5.40 [facility] CenterYyxtmouYKVQLSXBQJ2367-28-85 19:24:00 Test Item Value Reference Range Interpretation Comments Platelet (test code = Platelet) 402 133-450 [facility] CenterQogggfeEPYPBAAUYW2014-68-18 19:24:00 Test Item Value Reference Range Interpretation Comments MCV (test code = MCV) 89.9 80.0-98.0 [facility] CenterDcgayrbJWZCFPEBPI7758-76-76 19:24:00 Test Item Value Reference Range Interpretation Comments Hct (test code = Hct) 42.7 36.0-48.0 [facility] CenterMggoktkBUFVOGPUMI1145-08-68 19:24:00 Test Item Value Reference Range Interpretation Comments Hgb (test code = Hgb) 14.5 12.0-16.0 [facility] CenterXzkhwzhONOMUEGWVI4828-55-20 19:24:00 Test Item Value Reference Range Interpretation Comments RDW (test code = RDW) 13.5 11.5-14.5 [facility] CenterXdbersaKGDHJVIZAZ4220-49-43 19:24:00 Test Item Value Reference Range Interpretation Comments MCHC (test code = MCHC) 34.0 32.0-36.0 [facility] CenterRvsgefhTGNJKTYXYC3259-54-76 19:24:00 Test Item Value Reference Range Interpretation Comments MCH (test code = MCH) 30.6 pg 27.0-31.0 [facility] CenterCzkjopqALHOPKODVT3094-42-27 19:24:00 Test Item Value Reference Range Interpretation Comments MPV (test code = MPV) 8.1 7.4-10.4 [facility] CenterBeqmrjyTXZFPLPPJN9654-69-50 19:24:00 Test Item Value Reference Range Interpretation Comments Stomatocyte (test code = Stomatocyte) Slight [facility] CenterSlvratyHOVMBFEBTX9161-91-15 19:24:00 Test Item Value Reference Range Interpretation Comments Basophils # (test code 0.1 See_Comment [Aut omated message] The = Basophils #) system which generated this result tra nsmitted reference range : <=0.2. The reference r ozzy was not used to int erpret this result as normal/abnormal . [id number] 19:24:00 Test Item Value Reference Range Interpretation Comments Eosinophils # (test code 0.2 See_Comment [A utomated message] The = Eosinophils #) system whic h generated this result tra nsmitted reference range : <=0.5. The reference r ozzy was not used to int erpret this result as normal/abnormal . [facility] CenterCgwnykqJUXMKGOXWD7780-28-19 19:24:00 Test Item Value Reference Range Interpretation Comments Hypochrom (test code = 1+ (08/24/14 1:24 PM) Hypochrom) [facility] [id number] 19:24:00 Test Item Value Reference Range Interpretation Comments Lymphocytes # (test code = Lymphocytes 2.8 1.0-5.5 #) [facility] CenterBxhnflvOSVLPTGPHK3643-65-21 19:24:00 Test Item Value Reference Range Interpretation Comments Segs-Bands # (test code = Segs-Bands #) 8.1 1.5-8.1 [facility] Cent[id number] 19:24:00 Test Item Value Reference Range Interpretation Comments Monocytes # (test code 0.2 See_Comment [Aut omated message] The = Monocytes #) system which generated this result tra nsmitted reference range : <=0.8. The reference r ozzy was not used to int erpret this result as normal/abnormal . [facility] CenterFnjeptkBXSWBORCON4704-30-05 19:24:00 Test Item Value Reference Range Interpretation Comments Lymphocytes (test code = Lymphocytes) 24.5 20.0-40.0 [facility] CenterAzfzzcuVCNGYZXJOH3998-12-54 19:24:00 Test Item Value Reference Range Interpretation Comments Segs (test code = Segs) 71.8 45.0-75.0 [facility] Cent[id number] 19:24:00 Test Item Value Reference Range Interpretation Comments Basophils (test code = 0.6 See_Comment [Aut omated message] The Basophils) system which ge nerated this result tra nsmitted reference range : <=1.0. The reference r ozzy was not used to int erpret this result as normal/abnormal . [facility] CenterOnqlrrxKYHBXDLVNQ2921-09-99 19:24:00 Test Item Value Reference Range Interpretation Comments Monocytes (test code = Monocytes) 1.5 2.0-12.0 [facility] CenterCnwpgtcENQGHDVYVK2287-29-01 19:24:00 Test Item Value Reference Range Interpretation Comments Eosinophils (test code = 1.6 See_Comment [A utomated message] The Eosinophils) system which ge nerated this result tra nsmitted reference range : <=4.0. The reference r ozzy was not used to int erpret this result as normal/abnormal . [facility] CenterOacucwdGTMTHDXCBZ6589-82-49 19:24:00 Test Item Value Reference Range Interpretation Comments Plt Morph (test code = Normal (08/24/14 1:24 Plt Morph) PM) [facility] AND [id number] 19:24:00 Test Item Value Reference Range Interpretation Comments UA Sq Epi (test code = UA Sq Occasional /LPF Epi) [facility] AND [id number] 19:24:00 Test Item Value Reference Range Interpretation Comments UA Bacteria (test code = UA Occasional /HPF Bacteria) [facility] AND [id number] 19:24:00 Test Item Value Reference Range Interpretation Comments UA Mucus (test code = None Seen (08/24/14 UA Mucus) 1:24 PM) [facility] AND [id number] 19:24:00 Test Item Value Reference Range Interpretation Comments UA WBC (test code = UA WBC) 0-2 /HPF [facility] AND [id number] 19:24:00 Test Item Value Reference Range Interpretation Comments UA RBC (test code = 0-2 /HPF See_Comment [Automa gaye message] The UA RBC) system which ge nerated this result tra nsmitted reference range : <=2. The reference range was not used to interpr et this result as satish l/abnormal. [facility] AND [id number] 19:24:00 Test Item Value Reference Range Interpretation Comments UA Leuk Est (test Moderate *ABN*(08/24/14 code = UA Leuk Est) 1:24 PM) [facility] AND [id number] 19:24:00 Test Item Value Reference Range Interpretation Comments UA Nitrite (test code Negative (08/24/14 1:24 = UA Nitrite) PM) [facility] AND [id number] 19:24:00 Test Item Value Reference Range Interpretation Comments UA Urobilinogen (test code = UA 0.2 0.1-1.0 Urobilinogen) [facility] AND [id number] 19:24:00 Test Item Value Reference Range Interpretation Comments UA Ketones (test code Negative *NA*(08/24/14 = UA Ketones) 1:24 PM) [facility] AND [id number] 19:24:00 Test Item Value Reference Range Interpretation Comments UA Blood (test code = Negative (08/24/14 1:24 UA Blood) PM) [facility] AND [id number] 19:24:00 Test Item Value Reference Range Interpretation Comments UA Bili (test code = Negative *NA*(08/24/14 UA Bili) 1:24 PM) [facility] AND [id number] 19:24:00 Test Item Value Reference Range Interpretation Comments UA Color (test code = Yellow *NA*(08/24/14 UA Color) 1:24 PM) [facility] AND [id number] 19:24:00 Test Item Value Reference Range Interpretation Comments UA Glucose (test code Negative (08/24/14 1:24 = UA Glucose) PM) [facility] AND [id number] 19:24:00 Test Item Value Reference Range Interpretation Comments UA Protein (test code Negative (08/24/14 1:24 = UA Protein) PM) [facility] AND [id number] 19:24:00 Test Item Value Reference Range Interpretation Comments UA pH (test code = UA pH) 6.0 1 5.0-8.0 [facility] AND [id number] 19:24:00 Test Item Value Reference Range Interpretation Comments UA Spec Grav (test code *NA*(08/24/14 1:24 PM) = UA Spec Grav) [facility] AND [id number] 19:24:00 Test Item Value Reference Range Interpretation Comments UA Turbidity (test code = Clear (08/24/14 1:24 UA Turbidity) PM) [facility]2015-01-12 19:24:00 Test Item Value Reference Range Interpretation Comments Lipase Lvl (test code = Lipase Lvl) 104 73-393 [facility]2015-01-12 19:24:00 Test Item Value Reference Range Interpretation Comments eGFR (test code = eGFR) 109 [facility]2015-01-12 19:24:00 Test Item Value Reference Range Interpretation Comments Bili Total (test code = Bili Total) 0.6 0.2-1.3 [facility]2015-01-12 19:24:00 Test Item Value Reference Range Interpretation Comments Alk Phos (test code = Alk Phos) 72 39-136 [facility]2015-01-12 19:24:00 Test Item Value Reference Range Interpretation Comments Calcium Lvl (test code = Calcium Lvl) 8.8 8.5-10.5 [facility]2015-01-12 19:24:00 Test Item Value Reference Range Interpretation Comments CO2 (test code = CO2) 28 24-32 [facility]2015-01-12 19:24:00 Test Item Value Reference Range Interpretation Comments Chloride Lvl (test code = Chloride Lvl) 107 95-109 [facility]2015-01-12 19:24:00 Test Item Value Reference Range Interpretation Comments Potassium Lvl (test code = Potassium 3.9 3.5-5.1 Lvl) [facility]2015-01-12 19:24:00 Test Item Value Reference Range Interpretation Comments Glucose Lvl (test code = Glucose Lvl) 90 70-99 [facility]2015-01-12 19:24:00 Test Item Value Reference Range Interpretation Comments Sodium Lvl (test code = Sodium Lvl) 138 135-145 [facility]2015-01-12 19:24:00 Test Item Value Reference Range Interpretation Comments BUN (test code = BUN) 7 7-22 [facility]2015-01-12 19:24:00 Test Item Value Reference Range Interpretation Comments Creatinine Lvl (test code = Creatinine 0.7 0.5-1.4 Lvl) [facility]2015-01-12 19:24:00 Test Item Value Reference Range Interpretation Comments ALT (test code = ALT) 23 See_Comment [Auto mated message] The system which ge nerated this result transmit gaye reference range : <=65. The reference range was not used to interpr et this result as satish l/abnormal. [facility]2015-01-12 19:24:00 Test Item Value Reference Range Interpretation Comments AST (test code = AST) 12 See_Comment [Auto mated message] The system which ge nerated this result transmit gaye reference range : <=37. The reference range was not used to interpr et this result as satish l/abnormal. [facility]2015-01-12 19:24:00 Test Item Value Reference Range Interpretation Comments Albumin Lvl (test code = Albumin Lvl) 3.8 3.5-5.0 [facility]2015-01-12 19:24:00 Test Item Value Reference Range Interpretation Comments Total Protein (test code = Total 8.0 6.4-8.4 Protein) [facility]2015-01-12 19:24:00 Test Item Value Reference Range Interpretation Comments A/G Ratio (test code = A/G Ratio) 0.9 0.7-1.6 [facility]2015-01-12 19:24:00 Test Item Value Reference Range Interpretation Comments AGAP (test code = AGAP) 6.9 10.0-20.0 [facility]2015-01-12 19:24:00 Test Item Value Reference Range Interpretation Comments B/C Ratio (test code = B/C Ratio) 10 6-25 [facility]2015-01-12 19:24:00 Test Item Value Reference Range Interpretation Comments Globulin (test code = Globulin) 4.2 2.0-4.0 [facility]B2393-[facility]-02 19:24:00 Test Item Value Reference Range Interpretation Comments S Preg (test code = S Negative *NA*(08/24/14 Preg) 1:24 PM) [facility] CenterHpcwewnXZVYZDWWXV2319-19-93 19:24:00 Test Item Value Reference Range Interpretation Comments WBC (test code = WBC) 11.3 3.7-10.4 [facility] [id number] 19:24:00 Test Item Value Reference Range Interpretation Comments RBC (test code = RBC) 4.75 4.20-5.40 [facility] CenterWqkkgrnTTHBRWJBDY7006-74-29 19:24:00 Test Item Value Reference Range Interpretation Comments Platelet (test code = Platelet) 402 133-450 [facility] CenterYopwvfpGDQXULBHXF0244-04-32 19:24:00 Test Item Value Reference Range Interpretation Comments MCV (test code = MCV) 89.9 80.0-98.0 [facility] CenterQsnqdqzOSNDDMFFYA1079-63-22 19:24:00 Test Item Value Reference Range Interpretation Comments Hct (test code = Hct) 42.7 36.0-48.0 [facility] CenterYkmjvnmOIKLOQSDNH1005-68-21 19:24:00 Test Item Value Reference Range Interpretation Comments Hgb (test code = Hgb) 14.5 12.0-16.0 [facility] CenterVosmjeoSXLROLEUKY5411-42-80 19:24:00 Test Item Value Reference Range Interpretation Comments RDW (test code = RDW) 13.5 11.5-14.5 [facility] CenterUfkgnwxQYNYKUDHUD3054-16-90 19:24:00 Test Item Value Reference Range Interpretation Comments MCHC (test code = MCHC) 34.0 32.0-36.0 [facility] CenterVnnsieaBVCMHEXXCY5637-35-32 19:24:00 Test Item Value Reference Range Interpretation Comments MCH (test code = MCH) 30.6 pg 27.0-31.0 [facility] CenterRtegiulBIZZXYQHMQ8445-09-61 19:24:00 Test Item Value Reference Range Interpretation Comments MPV (test code = MPV) 8.1 7.4-10.4 [facility] CenterQujpsswSWFBIWEVTB9004-92-52 19:24:00 Test Item Value Reference Range Interpretation Comments Stomatocyte (test code = Stomatocyte) Slight [facility] CenterYkrmkntGAHKKNBSLC8962-36-28 19:24:00 Test Item Value Reference Range Interpretation Comments Basophils # (test code 0.1 See_Comment [Aut omated message] The = Basophils #) system which generated this result tra nsmitted reference range : <=0.2. The reference r ozzy was not used to int erpret this result as normal/abnormal . [facility] CenterXfnegbsLLLDZVHLLJ6828-97-11 19:24:00 Test Item Value Reference Range Interpretation Comments Eosinophils # (test code 0.2 See_Comment [A utomated message] The = Eosinophils #) system whic h generated this result tra nsmitted reference range : <=0.5. The reference r ozzy was not used to int erpret this result as normal/abnormal . [facility] CenterTzaqxjiRGSQXPAHIW7594-27-57 19:24:00 Test Item Value Reference Range Interpretation Comments Hypochrom (test code = 1+ (08/24/14 1:24 PM) Hypochrom) [facility] CenterMkgnizgKQBVCLPOGT3418-33-13 19:24:00 Test Item Value Reference Range Interpretation Comments Lymphocytes # (test code = Lymphocytes 2.8 1.0-5.5 #) [facility] CenterJzuewutSTUWUZOEZQ8869-85-35 19:24:00 Test Item Value Reference Range Interpretation Comments Segs-Bands # (test code = Segs-Bands #) 8.1 1.5-8.1 [place] [id number] 19:24:00 Test Item Value Reference Range Interpretation Comments Monocytes # (test code 0.2 See_Comment [Aut omated message] The = Monocytes #) system which generated this result tra nsmitted reference range : <=0.8. The reference r ozzy was not used to int erpret this result as normal/abnormal . [facility] CenterPpzluirKIAEJNZQBY1608-22-60 19:24:00 Test Item Value Reference Range Interpretation Comments Lymphocytes (test code = Lymphocytes) 24.5 20.0-40.0 [facility] CenterTkahnlcXLSULQZGTO0294-66-52 19:24:00 Test Item Value Reference Range Interpretation Comments Segs (test code = Segs) 71.8 45.0-75.0 [facility] CenterHatygmqVAOITALSCD9807-13-56 19:24:00 Test Item Value Reference Range Interpretation Comments Basophils (test code = 0.6 See_Comment [Aut omated message] The Basophils) system which ge nerated this result tra nsmitted reference range : <=1.0. The reference r ozzy was not used to int erpret this result as normal/abnormal . [facility] CenterOynaavwJGFWPPFHHQ7808-63-94 19:24:00 Test Item Value Reference Range Interpretation Comments Monocytes (test code = Monocytes) 1.5 2.0-12.0 [facility] CenterAgngwyeKOMNKPVTGN4705-69-84 19:24:00 Test Item Value Reference Range Interpretation Comments Eosinophils (test code = 1.6 See_Comment [A utomated message] The Eosinophils) system which ge nerated this result tra nsmitted reference range : <=4.0. The reference r ozzy was not used to int erpret this result as normal/abnormal . [facility]bv[facility]oSCWQQNKTDA4775-90-03 19:24:00 Test Item Value Reference Range Interpretation Comments Plt Morph (test code = Normal (08/24/14 1:24 Plt Morph) PM) [facility] AND [id number] 19:24:00 Test Item Value Reference Range Interpretation Comments UA Sq Epi (test code = UA Sq Occasional /LPF Epi) [facility] AND [id number] 19:24:00 Test Item Value Reference Range Interpretation Comments UA Bacteria (test code = UA Occasional /HPF Bacteria) [facility] AND [id number] 19:24:00 Test Item Value Reference Range Interpretation Comments UA Mucus (test code = None Seen (08/24/14 UA Mucus) 1:24 PM) [facility] AND [id number] 19:24:00 Test Item Value Reference Range Interpretation Comments UA WBC (test code = UA WBC) 0-2 /HPF [facility] AND [id number] 19:24:00 Test Item Value Reference Range Interpretation Comments UA RBC (test code = 0-2 /HPF See_Comment [Automa gaye message] The UA RBC) system which ge nerated this result tra nsmitted reference range : <=2. The reference range was not used to interpr et this result as satish l/abnormal. [facility] AND [id number] 19:24:00 Test Item Value Reference Range Interpretation Comments UA Leuk Est (test Moderate *ABN*(08/24/14 code = UA Leuk Est) 1:24 PM) [facility] AND [id number] 19:24:00 Test Item Value Reference Range Interpretation Comments UA Nitrite (test code Negative (08/24/14 1:24 = UA Nitrite) PM) [facility] AND [id number] 19:24:00 Test Item Value Reference Range Interpretation Comments UA Urobilinogen (test code = UA 0.2 0.1-1.0 Urobilinogen) [facility] AND [id number] 19:24:00 Test Item Value Reference Range Interpretation Comments UA Ketones (test code Negative *NA*(08/24/14 = UA Ketones) 1:24 PM) [facility] AND [id number] 19:24:00 Test Item Value Reference Range Interpretation Comments UA Blood (test code = Negative (08/24/14 1:24 UA Blood) PM) [facility] AND [id number] 19:24:00 Test Item Value Reference Range Interpretation Comments UA Bili (test code = Negative *NA*(08/24/14 UA Bili) 1:24 PM) [facility] AND [id number] 19:24:00 Test Item Value Reference Range Interpretation Comments UA Color (test code = Yellow *NA*(08/24/14 UA Color) 1:24 PM) [facility] AND [id number] 19:24:00 Test Item Value Reference Range Interpretation Comments UA Glucose (test code Negative (08/24/14 1:24 = UA Glucose) PM) [facility] AND [id number] 19:24:00 Test Item Value Reference Range Interpretation Comments UA Protein (test code Negative (08/24/14 1:24 = UA Protein) PM) [facility] AND [id number] 19:24:00 Test Item Value Reference Range Interpretation Comments UA pH (test code = UA pH) 6.0 1 5.0-8.0 [facility] AND [id number] 19:24:00 Test Item Value Reference Range Interpretation Comments UA Spec Grav (test code *NA*(08/24/14 1:24 PM) = UA Spec Grav) [facility] AND [id number] 19:24:00 Test Item Value Reference Range Interpretation Comments UA Turbidity (test code = Clear (08/24/14 1:24 UA Turbidity) PM) [facility] [id number] 19:24:00 Test Item Value Reference Range Interpretation Comments Lipase Lvl (test code = Lipase Lvl) 104 73-393 [facility] [id number] 19:24:00 Test Item Value Reference Range Interpretation Comments eGFR (test code = eGFR) 109 [facility] [id number] 19:24:00 Test Item Value Reference Range Interpretation Comments Bili Total (test code = Bili Total) 0.6 0.2-1.3 [facility]2015-01-12 19:24:00 Test Item Value Reference Range Interpretation Comments Alk Phos (test code = Alk Phos) 72 39-136 [facility]2015-01-12 19:24:00 Test Item Value Reference Range Interpretation Comments Calcium Lvl (test code = Calcium Lvl) 8.8 8.5-10.5 [facility]2015-01-12 19:24:00 Test Item Value Reference Range Interpretation Comments CO2 (test code = CO2) 28 24-32 [facility]2015-01-12 19:24:00 Test Item Value Reference Range Interpretation Comments Chloride Lvl (test code = Chloride Lvl) 107 95-109 [facility]2015-01-12 19:24:00 Test Item Value Reference Range Interpretation Comments Potassium Lvl (test code = Potassium 3.9 3.5-5.1 Lvl) [facility]2015-01-12 19:24:00 Test Item Value Reference Range Interpretation Comments Glucose Lvl (test code = Glucose Lvl) 90 70-99 [facility]2015-01-12 19:24:00 Test Item Value Reference Range Interpretation Comments Sodium Lvl (test code = Sodium Lvl) 138 135-145 [facility]2015-01-12 19:24:00 Test Item Value Reference Range Interpretation Comments BUN (test code = BUN) 7 7-22 [facility]2015-01-12 19:24:00 Test Item Value Reference Range Interpretation Comments Creatinine Lvl (test code = Creatinine 0.7 0.5-1.4 Lvl) [facility]2015-01-12 19:24:00 Test Item Value Reference Range Interpretation Comments ALT (test code = ALT) 23 See_Comment [Auto mated message] The system which ge nerated this result transmit gaye reference range : <=65. The reference range was not used to interpr et this result as satish l/abnormal. [place] [id number] 19:24:00 Test Item Value Reference Range Interpretation Comments AST (test code = AST) 12 See_Comment [Auto mated message] The system which ge nerated this result transmit gaye reference range : <=37. The reference range was not used to interpr et this result as satish l/abnormal. [facility]2015-01-12 19:24:00 Test Item Value Reference Range Interpretation Comments Albumin Lvl (test code = Albumin Lvl) 3.8 3.5-5.0 [place] [id number] 19:24:00 Test Item Value Reference Range Interpretation Comments Total Protein (test code = Total 8.0 6.4-8.4 Protein) [facility]2015-01-12 19:24:00 Test Item Value Reference Range Interpretation Comments A/G Ratio (test code = A/G Ratio) 0.9 0.7-1.6 [facility]2015-01-12 19:24:00 Test Item Value Reference Range Interpretation Comments AGAP (test code = AGAP) 6.9 10.0-20.0 [facility]2015-01-12 19:24:00 Test Item Value Reference Range Interpretation Comments B/C Ratio (test code = B/C Ratio) 10 6-25 [facility]2015-01-12 19:24:00 Test Item Value Reference Range Interpretation Comments Globulin (test code = Globulin) 4.2 2.0-4.0 [id number] 19:24:00 Test Item Value Reference Range Interpretation Comments S Preg (test code = S Negative *NA*(08/24/14 Preg) 1:24 PM) [facility] CenterZtuyffvYXLOERYRVC8046-83-43 19:24:00 Test Item Value Reference Range Interpretation Comments WBC (test code = WBC) 11.3 3.7-10.4 [facility] CenterSpaljprXRCVUVUMTH2817-39-08 19:24:00 Test Item Value Reference Range Interpretation Comments RBC (test code = RBC) 4.75 4.20-5.40 [place] [id number] 19:24:00 Test Item Value Reference Range Interpretation Comments Platelet (test code = Platelet) 402 133-450 [facility] CenterAykihtzTLFTQPXNXX0184-99-36 19:24:00 Test Item Value Reference Range Interpretation Comments MCV (test code = MCV) 89.9 80.0-98.0 [facility] CenterWndnrseNMVPZRFQGP8120-85-69 19:24:00 Test Item Value Reference Range Interpretation Comments Hct (test code = Hct) 42.7 36.0-48.0 [facility] CenterRracfucONVJWKQKNQ7779-73-49 19:24:00 Test Item Value Reference Range Interpretation Comments Hgb (test code = Hgb) 14.5 12.0-16.0 [facility] CenterLdgmlpeUCAXADWBHU6718-93-48 19:24:00 Test Item Value Reference Range Interpretation Comments RDW (test code = RDW) 13.5 11.5-14.5 [facility] CenterJvfaptkSINMEMGUBO6148-98-05 19:24:00 Test Item Value Reference Range Interpretation Comments MCHC (test code = MCHC) 34.0 32.0-36.0 [facility] CenterZucuiatHYUNMETUFG8899-84-95 19:24:00 Test Item Value Reference Range Interpretation Comments MCH (test code = MCH) 30.6 pg 27.0-31.0 [facility] CenterLdjqxlmBYKXZZESOQ8734-49-58 19:24:00 Test Item Value Reference Range Interpretation Comments MPV (test code = MPV) 8.1 7.4-10.4 [facility] CenterDdrpxylHNPJWQQBJQ8127-54-43 19:24:00 Test Item Value Reference Range Interpretation Comments Stomatocyte (test code = Stomatocyte) Slight [facility] CenterZykxufeMPWDTSZVAP0571-83-95 19:24:00 Test Item Value Reference Range Interpretation Comments Basophils # (test code 0.1 See_Comment [Aut omated message] The = Basophils #) system which generated this result tra nsmitted reference range : <=0.2. The reference r ozzy was not used to int erpret this result as normal/abnormal . [facility] CenterObddiklTXSQTCAKKC7842-55-46 19:24:00 Test Item Value Reference Range Interpretation Comments Eosinophils # (test code 0.2 See_Comment [A utomated message] The = Eosinophils #) system whic h generated this result tra nsmitted reference range : <=0.5. The reference r ozzy was not used to int erpret this result as normal/abnormal . [facility] CenterGkveyjsNVFYEHCXEF4470-28-70 19:24:00 Test Item Value Reference Range Interpretation Comments Hypochrom (test code = 1+ (08/24/14 1:24 PM) Hypochrom) [id number] 19:24:00 Test Item Value Reference Range Interpretation Comments Lymphocytes # (test code = Lymphocytes 2.8 1.0-5.5 #) [facility] [id number] 19:24:00 Test Item Value Reference Range Interpretation Comments Segs-Bands # (test code = Segs-Bands #) 8.1 1.5-8.1 [facility] C[id number] 19:24:00 Test Item Value Reference Range Interpretation Comments Monocytes # (test code 0.2 See_Comment [Aut omated message] The = Monocytes #) system which generated this result tra nsmitted reference range : <=0.8. The reference r ozzy was not used to int erpret this result as normal/abnormal . [facility] [id number] 19:24:00 Test Item Value Reference Range Interpretation Comments Lymphocytes (test code = Lymphocytes) 24.5 20.0-40.0 [facility] Cent[id number] 19:24:00 Test Item Value Reference Range Interpretation Comments Segs (test code = Segs) 71.8 45.0-75.0 [facility] C[id number] 19:24:00 Test Item Value Reference Range Interpretation Comments Basophils (test code = 0.6 See_Comment [Aut omated message] The Basophils) system which ge nerated this result tra nsmitted reference range : <=1.0. The reference r ozzy was not used to int erpret this result as normal/abnormal . [facility] C[id number] 19:24:00 Test Item Value Reference Range Interpretation Comments Monocytes (test code = Monocytes) 1.5 2.0-12.0 [facility] C[id number] 19:24:00 Test Item Value Reference Range Interpretation Comments Eosinophils (test code = 1.6 See_Comment [A utomated message] The Eosinophils) system which ge nerated this result tra nsmitted reference range : <=4.0. The reference r ozzy was not used to int erpret this result as normal/abnormal . [facility] [id number] 19:24:00 Test Item Value Reference Range Interpretation Comments Plt Morph (test code = Normal (08/24/14 1:24 Plt Morph) PM) [facility]2015-01-12 19:24:00 Test Item Value Reference Range Interpretation Comments UA Sq Epi (test code = UA Sq Occasional /LPF Epi) [facility] AND [id number] 19:24:00 Test Item Value Reference Range Interpretation Comments UA Bacteria (test code = UA Occasional /HPF Bacteria) [facility] AND [id number] 19:24:00 Test Item Value Reference Range Interpretation Comments UA Mucus (test code = None Seen (08/24/14 UA Mucus) 1:24 PM) [facility] AND [id number] 19:24:00 Test Item Value Reference Range Interpretation Comments UA WBC (test code = UA WBC) 0-2 /HPF [facility] AND [id number] 19:24:00 Test Item Value Reference Range Interpretation Comments UA RBC (test code = 0-2 /HPF See_Comment [Automa gaye message] The UA RBC) system which ge nerated this result tra nsmitted reference range : <=2. The reference range was not used to interpr et this result as satish l/abnormal. [facility] AND [id number] 19:24:00 Test Item Value Reference Range Interpretation Comments UA Leuk Est (test Moderate *ABN*(08/24/14 code = UA Leuk Est) 1:24 PM) [facility] AND [id number] 19:24:00 Test Item Value Reference Range Interpretation Comments UA Nitrite (test code Negative (08/24/14 1:24 = UA Nitrite) PM) [facility] AND [id number] 19:24:00 Test Item Value Reference Range Interpretation Comments UA Urobilinogen (test code = UA 0.2 0.1-1.0 Urobilinogen) [facility] AND [id number] 19:24:00 Test Item Value Reference Range Interpretation Comments UA Ketones (test code Negative *NA*(08/24/14 = UA Ketones) 1:24 PM) [facility] AND [id number] 19:24:00 Test Item Value Reference Range Interpretation Comments UA Blood (test code = Negative (08/24/14 1:24 UA Blood) PM) [facility] AND [id number] 19:24:00 Test Item Value Reference Range Interpretation Comments UA Bili (test code = Negative *NA*(08/24/14 UA Bili) 1:24 PM) [facility] AND [id number] 19:24:00 Test Item Value Reference Range Interpretation Comments UA Color (test code = Yellow *NA*(08/24/14 UA Color) 1:24 PM) [facility] AND [id number] 19:24:00 Test Item Value Reference Range Interpretation Comments UA Glucose (test code Negative (08/24/14 1:24 = UA Glucose) PM) [facility] AND [id number] 19:24:00 Test Item Value Reference Range Interpretation Comments UA Protein (test code Negative (08/24/14 1:24 = UA Protein) PM) [facility] AND [id number] 19:24:00 Test Item Value Reference Range Interpretation Comments UA pH (test code = UA pH) 6.0 1 5.0-8.0 [facility] AND [id number] 19:24:00 Test Item Value Reference Range Interpretation Comments UA Spec Grav (test code *NA*(08/24/14 1:24 PM) = UA Spec Grav) [facility] AND [id number] 19:24:00 Test Item Value Reference Range Interpretation Comments UA Turbidity (test code = Clear (08/24/14 1:24 UA Turbidity) PM) [facility]2015-01-12 19:24:00 Test Item Value Reference Range Interpretation Comments Lipase Lvl (test code = Lipase Lvl) 104 73-393 [facility]2015-01-12 19:24:00 Test Item Value Reference Range Interpretation Comments eGFR (test code = eGFR) 109 [facility]2015-01-12 19:24:00 Test Item Value Reference Range Interpretation Comments Bili Total (test code = Bili Total) 0.6 0.2-1.3 [facility]2015-01-12 19:24:00 Test Item Value Reference Range Interpretation Comments Alk Phos (test code = Alk Phos) 72 39-136 [facility]2015-01-12 19:24:00 Test Item Value Reference Range Interpretation Comments Calcium Lvl (test code = Calcium Lvl) 8.8 8.5-10.5 [facility]2015-01-12 19:24:00 Test Item Value Reference Range Interpretation Comments CO2 (test code = CO2) 28 24-32 [facility]2015-01-12 19:24:00 Test Item Value Reference Range Interpretation Comments Chloride Lvl (test code = Chloride Lvl) 107 95-109 [facility]2015-01-12 19:24:00 Test Item Value Reference Range Interpretation Comments Potassium Lvl (test code = Potassium 3.9 3.5-5.1 Lvl) [facility]2015-01-12 19:24:00 Test Item Value Reference Range Interpretation Comments Glucose Lvl (test code = Glucose Lvl) 90 70-99 [facility]2015-01-12 19:24:00 Test Item Value Reference Range Interpretation Comments Sodium Lvl (test code = Sodium Lvl) 138 135-145 [facility]2015-01-12 19:24:00 Test Item Value Reference Range Interpretation Comments BUN (test code = BUN) 7 7-22 [facility]2015-01-12 19:24:00 Test Item Value Reference Range Interpretation Comments Creatinine Lvl (test code = Creatinine 0.7 0.5-1.4 Lvl) [facility]2015-01-12 19:24:00 Test Item Value Reference Range Interpretation Comments ALT (test code = ALT) 23 See_Comment [Auto mated message] The system which ge nerated this result transmit gaye reference range : <=65. The reference range was not used to interpr et this result as satish l/abnormal. [facility]2015-01-12 19:24:00 Test Item Value Reference Range Interpretation Comments AST (test code = AST) 12 See_Comment [Auto mated message] The system which ge nerated this result transmit gaye reference range : <=37. The reference range was not used to interpr et this result as satish l/abnormal. [facility]2015-01-12 19:24:00 Test Item Value Reference Range Interpretation Comments Albumin Lvl (test code = Albumin Lvl) 3.8 3.5-5.0 [facility]2015-01-12 19:24:00 Test Item Value Reference Range Interpretation Comments Total Protein (test code = Total 8.0 6.4-8.4 Protein) [facility]2015-01-12 19:24:00 Test Item Value Reference Range Interpretation Comments A/G Ratio (test code = A/G Ratio) 0.9 0.7-1.6 [facility]2015-01-12 19:24:00 Test Item Value Reference Range Interpretation Comments AGAP (test code = AGAP) 6.9 10.0-20.0 [facility]2015-01-12 19:24:00 Test Item Value Reference Range Interpretation Comments B/C Ratio (test code = B/C Ratio) 10 6-25 [facility]2015-01-12 19:24:00 Test Item Value Reference Range Interpretation Comments Globulin (test code = Globulin) 4.2 2.0-4.0 [id number] 19:24:00 Test Item Value Reference Range Interpretation Comments S Preg (test code = S Negative *NA*(08/24/14 Preg) 1:24 PM) [facility] [id number] 19:24:00 Test Item Value Reference Range Interpretation Comments WBC (test code = WBC) 11.3 3.7-10.4 [facility] [id number] 19:24:00 Test Item Value Reference Range Interpretation Comments RBC (test code = RBC) 4.75 4.20-5.40 [facility] Cent[id number] 19:24:00 Test Item Value Reference Range Interpretation Comments Platelet (test code = Platelet) 402 133-450 [facility] CenterNghcraeDODEGQEOJC3422-92-11 19:24:00 Test Item Value Reference Range Interpretation Comments MCV (test code = MCV) 89.9 80.0-98.0 [facility] CenterPbzwdcwEYUQVEOUXB3211-17-57 19:24:00 Test Item Value Reference Range Interpretation Comments Hct (test code = Hct) 42.7 36.0-48.0 [facility] [id number] 19:24:00 Test Item Value Reference Range Interpretation Comments Hgb (test code = Hgb) 14.5 12.0-16.0 [facility] CenterMdvzwduRBWBHOUJDM1054-13-65 19:24:00 Test Item Value Reference Range Interpretation Comments RDW (test code = RDW) 13.5 11.5-14.5 [facility] [id number] 19:24:00 Test Item Value Reference Range Interpretation Comments MCHC (test code = MCHC) 34.0 32.0-36.0 [facility] CenterPgdnyfrSVTQMVPHAM1145-97-94 19:24:00 Test Item Value Reference Range Interpretation Comments MCH (test code = MCH) 30.6 pg 27.0-31.0 [facility] Cent[id number] 19:24:00 Test Item Value Reference Range Interpretation Comments MPV (test code = MPV) 8.1 7.4-10.4 [facility] Cent[id number] 19:24:00 Test Item Value Reference Range Interpretation Comments Stomatocyte (test code = Stomatocyte) Slight [facility] Cent[id number] 19:24:00 Test Item Value Reference Range Interpretation Comments Basophils # (test code 0.1 See_Comment [Aut omated message] The = Basophils #) system which generated this result tra nsmitted reference range : <=0.2. The reference r ozzy was not used to int erpret this result as normal/abnormal . [facility] CenterLuqzyakZOXSQQQOLI0519-56-17 19:24:00 Test Item Value Reference Range Interpretation Comments Eosinophils # (test code 0.2 See_Comment [A utomated message] The = Eosinophils #) system whic h generated this result tra nsmitted reference range : <=0.5. The reference r ozzy was not used to int erpret this result as normal/abnormal . [facility] CenterXxsnjrpZCPQIVODYL7633-26-38 19:24:00 Test Item Value Reference Range Interpretation Comments Hypochrom (test code = 1+ (08/24/14 1:24 PM) Hypochrom) [facility] CenterIpdkheuCBMMRUSIWG7957-10-12 19:24:00 Test Item Value Reference Range Interpretation Comments Lymphocytes # (test code = Lymphocytes 2.8 1.0-5.5 #) [facility] Cent[id number] 19:24:00 Test Item Value Reference Range Interpretation Comments Segs-Bands # (test code = Segs-Bands #) 8.1 1.5-8.1 [facility] CenterYnxscciUPOCMWCUNK3901-51-51 19:24:00 Test Item Value Reference Range Interpretation Comments Monocytes # (test code 0.2 See_Comment [Aut omated message] The = Monocytes #) system which generated this result tra nsmitted reference range : <=0.8. The reference r ozzy was not used to int erpret this result as normal/abnormal . [facility] CenterCmvlzanASUDAXQNPG7292-23-72 19:24:00 Test Item Value Reference Range Interpretation Comments Lymphocytes (test code = Lymphocytes) 24.5 20.0-40.0 [facility] CenterZdgnjncRBJYTRSSLQ8496-18-04 19:24:00 Test Item Value Reference Range Interpretation Comments Segs (test code = Segs) 71.8 45.0-75.0 [facility] Cent[id number] 19:24:00 Test Item Value Reference Range Interpretation Comments Basophils (test code = 0.6 See_Comment [Aut omated message] The Basophils) system which ge nerated this result tra nsmitted reference range : <=1.0. The reference r ozzy was not used to int erpret this result as normal/abnormal . [facility] Cent[id number] 19:24:00 Test Item Value Reference Range Interpretation Comments Monocytes (test code = Monocytes) 1.5 2.0-12.0 [facility] C[id number] 19:24:00 Test Item Value Reference Range Interpretation Comments Eosinophils (test code = 1.6 See_Comment [A utomated message] The Eosinophils) system which ge nerated this result tra nsmitted reference range : <=4.0. The reference r ozzy was not used to int erpret this result as normal/abnormal . [facility] Cent[id number] 19:24:00 Test Item Value Reference Range Interpretation Comments Plt Morph (test code = Normal (08/24/14 1:24 Plt Morph) PM) [facility] AND [id number] 19:24:00 Test Item Value Reference Range Interpretation Comments UA Sq Epi (test code = UA Sq Occasional /LPF Epi) [facility] AND [id number] 19:24:00 Test Item Value Reference Range Interpretation Comments UA Bacteria (test code = UA Occasional /HPF Bacteria) [facility] AND [id number] 19:24:00 Test Item Value Reference Range Interpretation Comments UA Mucus (test code = None Seen (08/24/14 UA Mucus) 1:24 PM) [facility] AND [id number] 19:24:00 Test Item Value Reference Range Interpretation Comments UA WBC (test code = UA WBC) 0-2 /HPF [facility] AND [id number] 19:24:00 Test Item Value Reference Range Interpretation Comments UA RBC (test code = 0-2 /HPF See_Comment [Automa gaye message] The UA RBC) system which ge nerated this result tra nsmitted reference range : <=2. The reference range was not used to interpr et this result as satish l/abnormal. [facility] AND [id number] 19:24:00 Test Item Value Reference Range Interpretation Comments UA Leuk Est (test Moderate *ABN*(08/24/14 code = UA Leuk Est) 1:24 PM) [facility] AND [id number] 19:24:00 Test Item Value Reference Range Interpretation Comments UA Nitrite (test code Negative (08/24/14 1:24 = UA Nitrite) PM) [facility] AND [id number] 19:24:00 Test Item Value Reference Range Interpretation Comments UA Urobilinogen (test code = UA 0.2 0.1-1.0 Urobilinogen) [facility] AND [id number] 19:24:00 Test Item Value Reference Range Interpretation Comments UA Ketones (test code Negative *NA*(08/24/14 = UA Ketones) 1:24 PM) [facility] AND [id number] 19:24:00 Test Item Value Reference Range Interpretation Comments UA Blood (test code = Negative (08/24/14 1:24 UA Blood) PM) [facility] AND [id number] 19:24:00 Test Item Value Reference Range Interpretation Comments UA Bili (test code = Negative *NA*(08/24/14 UA Bili) 1:24 PM) [facility] AND [id number] 19:24:00 Test Item Value Reference Range Interpretation Comments UA Color (test code = Yellow *NA*(08/24/14 UA Color) 1:24 PM) [facility] AND [id number] 19:24:00 Test Item Value Reference Range Interpretation Comments UA Glucose (test code Negative (08/24/14 1:24 = UA Glucose) PM) [facility] AND [id number] 19:24:00 Test Item Value Reference Range Interpretation Comments UA Protein (test code Negative (08/24/14 1:24 = UA Protein) PM) [facility] AND [id number] 19:24:00 Test Item Value Reference Range Interpretation Comments UA pH (test code = UA pH) 6.0 1 5.0-8.0 [facility] AND [id number] 19:24:00 Test Item Value Reference Range Interpretation Comments UA Spec Grav (test code *NA*(08/24/14 1:24 PM) = UA Spec Grav) [facility] AND [id number] 19:24:00 Test Item Value Reference Range Interpretation Comments UA Turbidity (test code = Clear (08/24/14 1:24 UA Turbidity) PM) [facility]
[2022-10-14] MEDS ORDERED: NA CHLORIDE 0.9% 1,000 ML ONE (13:47)
[2022-10-14] MEDS ORDERED: DIAZEPAM 10 MG/2 ML INJ SYRINGE ONE (13:47)
[2022-10-14] MEDS ORDERED: FENTANYL CITR 100 MCG/2 ML ONE (13:47)
[2022-10-14 14:20] LABS: Absolute Lymphocytes (CBC) 4.4 K/uL (0.7-4.9); MCV 89.2 fL (80-100); MPV 8.2 fL (7.6-11.3); RBC Red Blood Cell Count 4.94 M/uL (3.86-4.86)
--- NOTE | 2022-10-14 14:43 | RAD REPORT ---
EXAM DESCRIPTION: RADChest Single View10/14/2022 2:24 pm CLINICAL HISTORY: pain all over COMPARISON: Chest Single View dated 02/11/2022 TECHNIQUE: Portable AP view of the chest. FINDINGS: The lungs are clear. No pneumothorax or effusion. The cardiomediastinal contours are unrem arkable. IMPRESSION: No acute cardiopulmonary process.
[2022-10-14 14:44] LABS: Urine Blood Trace-lysed (Negative); Urine Glucose Negative (Negative); Urine Protein Negative (Negative); Urine pH 7.5 (5.0-7.0)
[2022-10-14 14:45] LABS: BUN Blood Urea Nitrogen 12 mg/dL (7-18); Bicarbonate 28 mmol/L (21-32); Glomerular Filtration Rate 83 ml/min (=/>90); Glucose Level 87 mg/dL (74-106); Sodium Level 138 mmol/L (136-145)
[2022-10-14 14:46] LABS: Magnesium 2.1 mg/dL (1.6-2.4); Potassium 3.8 mmol/L (3.5-5.1); Troponin High Sensitivity < 3.0 pg/mL (<58.9)
[2022-10-14 15:02] LABS: Urine Bacteria <20 /HPF (<20); Urine RBC <5 /HPF (None Seen)
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
[2022-10-14] MEDS ORDERED: HYDROCODONE/APAP 7.5/325 MG TAB ONE (17:35)
[2022-10-14 19:43] VITALS: O2SAT 98
[2022-10-14 19:45] VITALS: BP 104/83
[2022-10-14 20:17] VITALS: TEMP 98
--- NOTE | 2022-10-16 16:44 | EKG ---
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
== END 2022-10-14 17:54 | disposition home or self-care (01) ==
LOC: ER 13:11
DX: M54.2 Cervicalgia (principal); M54.9 Dorsalgia, unspecified; I48.91 Unspecified atrial fibrillation; G40.909 Epilepsy, unspecified, not intractable, without status epilepticus; Z88.3 Allergy status to other anti-infective agents; Z88.5 Allergy status to narcotic agent; Z88.6 Allergy status to analgesic agent; Z88.8 Allergy status to other drugs, medicaments and biological substances; Z91.013 Allergy to seafood; Z91.040 Latex allergy status; Z91.048 Other nonmedicinal substance allergy status
CPT/HCPCS: 93005; 85025; 80048; 36415; 83735; 81025; 84484; 71045; 96375; 96374; 99284; J3010; J3360; J7030; 81003; 81015

== ENCOUNTER 2022-12-12 17:14 | Emergency (ER) | payer OTHER ==
--- OUTSIDE RECORDS SUMMARY | 2022-12-12 17:40 | XMS REPORT | Continuity of Care Document ---
:1975 Author Organization [facility] t Address [address] [place] [address] Care Team Providers Name Role Phone AriescanSilvanaDaveDeclan Primary Care Physician [phone] LEANDRO OLIVARES Attending Clinician Unavailable MIHIR LUNA Attending Clinician Unavailable Mihir Luna MD Attending Clinician SIMRAN CONTEH Attending Clinician Unavailable Simran Conteh MD Attending Clinician Doctor Unassigned, [place] Attending Clinician Unavailable Halima Vargas MD Attending Clinician HALIMA VARGAS Attending Clinician Unavailable Arceneaux_C Attending Clinician Unavailable James MCDUFFIE, Haroon Young Attending Clinician Joe Boles DO Attending Clinician TEJAL RIZZO Attending Clinician Unavailable Florence HUNTLEY, Waleska Attending Clinician Unavailable Starr Vinson RN Attending Clinician Unavailable LEANDRO OLIVARES M.D. Attending Clinician Unavailable VIRAL COFFEY Attending Clinician Unavailable Felicia Frost MD Attending Clinician LUCY NASCIMENTO M.D. Attending Clinician Unavailable Bladimir Brumfield MD Attending Clinician [phone] Obdulio Ragland MD Attending Clinician MD OBDULIO RAGLAND Attending Clinician Unavailable Inez García MD Attending Clinician [phone] JUDE MATHEWS M.D. Attending Clinician Unavailable Woo Greenberg DO Attending Clinician [phone] [place] MD Attending Clinician Clarice Brannon MD Attending Clinician Lj Thakkar Attending Clinician MD LJ THAKKAR Attending Clinician Unavailable Jose Elias Torres MD Attending Clinician Lydia Oden MD Attending Clinician [phone] Maribel Dickey MD Attending Clinician MD MARIBEL DICKEY Attending Clinician Unavailable MD INEZ GARCÍA Attending Clinician Unavailable Kevin Sood MD Attending Clinician Blaze Squires MD Attending Clinician MD BLAZE SQUIRES Attending Clinician Unavailable EVANGELINA PÉREZ Attending Clinician Unavailable ORESTES DUONG Attending Clinician Unavailable ORESTES DUONG Attending Clinician Unavailable BRITNI RODRIGUEZ Attending Clinician Unavailable THOMAS SCHWARZ Attending Clinician Unavailable MARCELINO RENZO Attending Clinician Unavailable RAF JOY Attending Clinician Unavailable KVNG ROCK Attending Clinician Unavailable CLAIR DE LEON Attending Clinician Unavailable HERIBERTO LAMBERT Attending Clinician Unavailable Malorie Fishman Attending Clinician Nay Carlson Attending Clinician SIMRAN CONTEH Admitting Clinician Unavailable Karissa Admitting Clinician Unavailable OBDULIO RAGLAND Admitting Clinician Unavailable MD OBDULIO RAGLAND Admitting Clinician Unavailable CLARICE BRANNON Admitting Clinician Unavailable MD CLARICE BRANNON Admitting Clinician Unavailable LYIDA ODEN Admitting Clinician Unavailable MD LYDIA ODEN Admitting Clinician Unavailable MARCIA WYNNE Admitting Clinician Unavailable BLAZE SQUIRES Admitting Clinician Unavailable MD BLAZE SQUIRES Admitting Clinician Unavailable ORESTES DUONG Admitting Clinician Unavailable Payers Payer Name Policy Type Policy Number Effective Date Expiration Date S ource [facility] COMM[facility] PL[facility] [id number] 2020 STAR 00:00:00 [facility] STAR [id number] 2022 00:00:00 CDC REVIEW [id number] 2020 00:00:00 Problems Condition Condition Condition Status Onset Resolution Last Treating Co mments Source Name Details Category Date Date Treatment Clinician Date Traumatic Traumatic Disease Active Met [facility]odi brain brain 12-06 st injury injury 00:00: Hospita 00 l Seizure-li Seizure-li Disease Active M ethodi ke ke 04 st activity activity 00:00: Hospit a 00 l Need for Need for Disease Active Metho di assistance assistance 05-08 due to due to 00:00: Hospita unsteady [...] VAGINAL Diagnosis Active 2016-08-10 Memoria BLEEDING BLEEDING 02-11 09:01:00 l Active 23:00: Antonio 02/12/2016 00 [facility] D25.9 - D25.9 - Diagnosis Active 2014-082015-06-08 Memoria "LEIOMYOMA "LEIOMYOMA 15:22:00 l OF UTERUS, OF UTERUS, 00:01: He rodger UNSPECIFI" UNSPECIFI" 00 Active 06/08/2015 SOFIA Alvarez VAGINAL VAGINAL Diagnosis Active 2014-12-21 Memoria BLEEDING- BLEEDING- - 13:01:00 l 6 WKS PG 6 WKS PG 00:00: Jordy roberto Active 00 09/03/2014 [facility] CONSTIPATI CONSTIPAT Diagnosis Active 2014-12-14 Memoria ON, NAUSEA ION, -12 09:23:00 l NAUSEA 00:00: Antonio Active 00 08/24/2014 [facility] History of History of Problem Resolve [...] active ity of problems problems [facility] Anemia Anemia Problem Resolve 2016-02-16 Mem oria (disorder) (disorder) d 00:25:42 l Resolved Forbes Problem 02/16/2016 [facility] Migraine Migraine Problem Resolve 2016-02-16 Memoria (disorder) (disorder) d 00:25:42 l Resolved Forbes Problem 02/16/2016 [facility] Mitral Mitral Problem Resolve 2016-02-16 Mem oria valve valve d 00:25:42 l prolapse prolapse Jordy n (disorder) (disorder) Resolved Problem 02/16/2016 [facility] Anxiety Anxiety Problem Active 2016-02-16 Me moria (finding) (finding) 00:25:42 l Active Forbes Problem 02/16/2016 [facility] Bipolar Bipolar Problem Active 2016-02-16 Me moria (qualifier (qualifier 00:25:42 l value) value) Forbes Active Problem 02/16/2016 [facility] Congestive Congestiv Problem Active 2016-02-16 Memoria heart e heart 00:25:42 l failure failure Forbes (disorder) (disorder) Active Problem 02/16/2016 [facility] Depressive Depressiv Problem Active 2016-02-16 Memoria disorder e disorder 00:25:42 l (disorder) (disorder) He rmann Active Problem 02/16/2016 [facility] Gastroesop Gastroeso Problem Active 2016-02-16 Memoria hageal phageal 00:25:42 l reflux reflux Antonio disease disease (disorder) (disorder) Active Problem 02/16/2016 [facility] Heart Heart Problem Active 2016-02-16 Memor ia failure failure 00:25:42 l (disorder) (disorder) He rmann Active Problem 02/16/2016 [facility] Hypertensi Hypertens Problem Active 2016-02-16 Memoria ve kellee 00:25:42 l disorder, disorder, Herm alem systemic systemic arterial arterial (disorder) (disorder) Active Problem 02/16/2016 [facility] Multiple Multiple Problem Active 2016-02-16 Memoria sclerosis sclerosis 00:25:42 l (disorder) (disorder) He rmann Active Problem 02/16/2016 [facility] Osteoarthr Osteoarth Problem Active 2016-02-16 Memoria itis ritis 00:25:42 l (disorder) (disorder) He rmann Active Problem 02/16/2016 [facility] Drug Drug Problem Active 2016-02-16 Memor ia overdose overdose 00:25:42 l (disorder) (disorder) He rmann Active Problem 02/16/2016 [facility] Rheumatoid Rheumatoi Problem Active 2016-02-16 Memoria arthritis d 00:25:42 l (disorder) arthritis Her sarkar (disorder) Active Problem 02/16/2016 [facility] 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 00:25:42 l (disorder) (disorder) He rmann Active Problem 02/16/2016 [facility] Uterine Uterine Problem Active 2016-02-16 Me moria leiomyoma leiomyoma 00:25:42 l (disorder) (disorder) He rmann Active Problem 02/16/2016 [facility] Urinary Urinary Problem Active 2016-02-16 Me moria tract tract 00:25:42 l infectious infectious He alem disease disease (disorder) (disorder) Active Problem 02/16/2016 [facility] 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 History of Past Illness Condition Condition Condition Status Onset Resolution Last Treating Co mments Source Name Details Category Date Date Treatment Clinician Date Discharge Discharge Problem 2016-02-16 2016-02-16 Memoria Diagnosis: Diagnosis: 02-12 00:25:42 00:25:42 l Anemia, Anemia, 05:00: Antonio unspecifie unspecifie 00 d d 02/13/2016 02/16/2016 [facility] Discharge Discharge Problem 2016-02-16 2016-02-16 Memoria Diagnosis: Diagnosis: 02-12 00:25:42 00:25:42 l Abnormal Abnormal 05:00: Jordy n uterine uterine 00 and and vaginal vaginal bleeding, bleeding, unspecifie unspecifie d d 02/13/2016 02/16/2016 [facility] Discharge Discharge Problem 2014-09-06 2014-09-06 Memoria Diagnosis: Diagnosis: 09-04 16:01:45 16:01:45 l Vaginal Vaginal 06:00: Forbes bleeding bleeding 00 09/04/2014 09/06/2014 [facility] Discharge Discharge Problem 2014-09-06 2014-09-06 Memoria Diagnosis: Diagnosis: 09-04 16:01:45 16:01:45 l Dysmenorrh Dysmenorrh 06:00: He rodger ea ea 00 09/04/2014 09/06/2014 [facility] Discharge Discharge Problem 2014-08-26 2014-08-26 Memoria Diagnosis: Diagnosis: 08-24 17:22:44 17:22:44 l Nausea Nausea 06:00: Antonio 08/24/201408/26/2014 [facility] Discharge Discharge Problem 2014-0 2014-08-26 2014-08-26 Memjimbo Diagnosis: Diagnosis: 08-24 17:22:44 17:22:44 l Constipati Constipati 06:00: He rmann on on 08/24/2014 08/26/2014 [facility] Allergies, Adverse Reactions, Alerts Allergy Allergy Status Severity Reaction(s) Onset Inactive Treating Comm ents Source Name Type Date Date Clinician Iodine Propensi Active Hives 2022-0 Univers ty to 08-14 ity of adverse [...] Povidone Allergy Active 2020-0 [facility] Iodine to 9-13 [facility] substanc 00:00: e 00 Latex Allergy [...] s to drug Iodine Drug [facility] [...] s to Products drug Tramadol [facility]ensi [facility] adverse [facility]: [facility] reaction [facility] s Vancomyc Propensi [facility] 2[facility]13 [facility] adverse 00:00: Medical s reaction 00 Center s Vancomyc Propensi Active Hives Method i in ty to 2-13 st Analogue adverse 00:00: Hospita s reaction 00 l s to drug TRAMADOL Allergy Active [facility] 2-13 00:00: 00 VANCOMYC Allergy Active [facility] IN 2-13 ANALOGUE 00:00: S 00 Povidone Propensi Active [...] Active Memori a d d 8-09 l radioGRID radiocon 00:00: Jordy roberto trast trast 00 dyes dyes Levaquin Levaquin Active Memori a 8-09 l 00:00: Antonio 00 Phenerga Phenerga Active Memori a n n 8-09 l 00:00: Forbes 00 Food Food Active Memjimbo Seafood Seafood l Antonio Latex Latex Active Memoria l [facility] morphine morphine Active Memori a l [facility] vancomyc vancomyc Active Memori a in in l Antonio Elavil Elavil Active Memoria l [facility] STEROIDS Allergy Active [facility] Betadine Allergy Active [facility] SOLN to drug Physici (finding ans ) Latex Allergy Active [facility] Exam to drug Physici Gloves (finding ans MISC ) Levaquin Allergy Active [facility] to drug Physici (finding ans ) Phenerga Allergy Active [facility] n to drug Physici (finding ans ) Vancomyc Allergy Active [facility] in HCl to drug Physici SOLR (finding ans ) Family History Family Member Diagnosis Comments Start Date Stop Date Source Family member No history of Methodis t cancer [facility] Maternal aunt Cancer [facility]aternal aunt Melanoma [facility] Maternal grandfather Stroke [facility] Natural mother Diabetes [facility] Natural sister Stroke [facility] Maternal uncle Leukemia [facility] Social History Social Habit Start Date Stop Date Quantity Comments Source Gender identity 2020-05-06 Identifies as Method ist 15:03:15 female gender Hospital (finding) Sexual orientation 2020-05-06 Heterosexual Meth odist 15:03:15 (finding) Hospital History SDOH [facility] Alcohol Frequency Hospita l History SDOH [facility] Alcohol Std Drinks Hospit al History SDOH [facility] Alcohol Binge Hospital Exposure to 2022-12-01 2022-12-11 Not sure University SARS-CoV-2 (event) 00:00:00 20:24:00 [facility] Alcohol intake 2021-06-29 2021-06-29 Current non-drinker M ethodist 00:00:00 00:00:00 of alcohol Hospital (finding) Tobacco use and 2021-04-25 2021-04-25 Smokeless tobacco [facility] exposure 00:00:00 00:00:00 non-user Alcohol Comment 2018-08-02 2018-08-[address] 00:00:00 00:00:00 Hospital Sex Assigned At [birth year] [facility] 00:00:00 00:00:00 Medical Center Smoking Status Start Date Stop Date Source Tobacco smoking consumption [facility] Social History [facility] Medications Ordered Filled Start Stop Current Ordering Indication Dosage Frequency Signature Comments Components Source Medication Medication Date Date Medication? Clinician (SIG) Name Name morpHINE (4 2022-0 2022- No 4mg 4 mg, Slow Univers mg/mL) 12-12 IV Push, ity of injection 4 06:00: 06:03 [place]CE[place] 1 [place] mg 00 :[place] dose, On Medical Sun12/12/22 Branch at 0100, STAT dicyclomine 2022- No 20mg 20 mg, Uni vers (BENTYL) 12-12 Intramuscu ity of injection 04:45: 04:41 lar, ONCE, [place] 20 mg 00 :00 1 dose, On Medical Sun12/11/22 Branch at 2345, Routine ondansetron 0 Yes [id number] 4mg Take 1 Univers (ZOFRAN) 4 5-02 tablet by ity of mg tablet 00:00: mouth [place] 00 every 8 Medical (eight) Branch hours as needed for Nausea and Vomiting (N/V). dicyclomine Yes [id number] 20mg Take 1 Univers 20 mg 5-02 tablet by ity of tablet 00:00: mouth [place] 00 every 6 Medical (six) Branch hours as needed for Abdominal pain. acetaminoph Yes [id number] 1{tbl} Take 1 Un solange en-codeine 5-02 tablet by ity of (TYLENOL-CO 00:00: mouth [place] DEINE #3) 00 every 4 Medical 300-30 mg (four) Branch tablet hours as needed for Pain (scale 7-10). Indication s: acute pain FENTanyl PF 2022- No 25ug 25 mcg, Un solange (SUBLIMAZE 11-27 Slow IV ity o f (PF)) 23:15: 00:05 Push, [place] injection 00 :00 ONCE, 1 Medical 25 mcg dose, On Branch Sun11/27/22 at 1815, STAT cefTRIAXone 2022- No 1000mg 1,000 mg, Univers (ROCEPHIN) 11-27 IV ity of 1,000 mg in 21:15: 23:18 Piggyback, [place] NaCl 0.9% 00 :00 ONCE, 1 Medical (NS) 100 mL dose, On Bran ch MINI-BAG Sun11/27/22 at 1615, Administer over 30 Minutes, 100 mL
Reas on for Anti-Infec tive: Documented Infection< br>Documen gaye Infection Site: Urine<br&g t;Duration of Therapy: 7 days cefpodoxime 2022- Yes [id number] 100mg Take 1 Univers 100 mg 11-27 04-25 tablet by ity of tablet 00:00: 04:59 mouth in [place] 00 :00 the morning Branch and 1 tablet in the evening. Do all this for 7 days. ketorolac 2022- No 30mg 30 mg, Unive rs (TORADOL) 08-15 [...] Sun08/14/22 Branch at 2330, Routine NaCl 0.9% No 1000mL at 999 Uni vers (NS) [...] Administer over 15 Minutes, 100 mL levETIRAcet Yes [id number] 1000mg Take 1 Univers am (KEPPRA) 08-14 tablet by ity of 1,000 mg 00:00: mouth in [place] tablet 00 the and 1 tablet in the evening. Lacosamide Yes [id number] 200mg Take 1 Univers (VIMPAT) 02 tablet by ity of 200 mg 00:00: mouth in [place] tablet 00 the Medical morning Branch and 1 tablet in the evening. ALPRAZolam 3-0 Yes [id number] .25mg Take 1 Univers (XANAX) 1-02 tablet by ity of 0.25 mg 00:00: mouth in [place] tablet 00 the Medical morning Branch and 1 tablet at noon and 1 tablet in the evening. levETIRAcet 3-0 Yes [id number] 1000mg Take 1 Univers am (KEPPRA) 1-02 tablet by ity of 1,000 mg 00:00: mouth in [place] tablet 00 the Medical morning Branch and 1 tablet in the evening. Lacosamide 3-0 Yes [id number] 200mg Take 1 Univers (VIMPAT) 1-02 tablet by ity of 200 mg 00:00: mouth in [place] tablet 00 the Medical morning Branch and 1 tablet in the evening. ALPRAZolam 3-0 Yes [id number] .25mg Take 1 Univers (XANAX) 1-02 tablet by ity of 0.25 mg 00:00: mouth in [place] tablet 00 the Medical morning Branch and 1 tablet at noon and 1 tablet in the evening. levETIRAcet 3-0 Yes [id number] 1000mg Take 1 Univers am (KEPPRA) 1-02 tablet by ity of 1,000 mg 00:00: mouth in [place] tablet 00 the Medical morning Branch and 1 tablet in the evening. Lacosamide 3-0 Yes [id number] 200mg Take 1 Univers (VIMPAT) 1-02 tablet by ity of 200 mg 00:00: mouth in [place] tablet 00 the Medical morning Branch and 1 tablet in the evening. ALPRAZolam 3-0 Yes [id number] .25mg Take 1 Univers (XANAX) 1-02 tablet by ity of 0.25 mg 00:00: mouth in [place] tablet 00 the Medical morning Branch and 1 tablet at noon and 1 tablet in the evening. levETIRAcet 3-0 Yes [id number] 1000mg Take 1 Univers am (KEPPRA) 1-02 tablet by ity of 1,000 mg 00:00: mouth in [place] tablet 00 the Medical morning Branch and 1 tablet in the evening. Lacosamide 3-0 Yes [id number] 200mg Take 1 Univers (VIMPAT) 1-02 tablet by ity of 200 mg 00:00: mouth in [place] tablet 00 the Medical morning Branch and 1 tablet in the evening. ALPRAZolam Yes [id number] .25mg Take 1 Univers (XANAX) 1-02 tablet by ity of 0.25 mg 00:00: mouth in [place] tablet 00 the Medical morning Branch and 1 tablet at noon and 1 tablet in the evening. acetaminoph 2020-08- No [id number] 1{tbl} Q6H Take 1 Methodi en-codeine 08-[address] (TYLENOL 00:00: 05:59 mouth Hospita WITH 00 :00 every 6 l CODEINE #3) (six) 300-30 mg hours as per tablet needed for moderate pain for up to 5 days .acute pain. acetaminoph 2020-08- No [id number] 1{tbl} Q6H Take 1 Methodi en-codeine 08-29 [...] He alth 12:13: s 10 bumetanide Yes [id number] 2mg QD Take 1 U T (Bumex) 2 9-13 tablet (2 Healt h MG tablet 00:00: mg total) 00 by mouth 1 (one) time each day. lisinopril Yes [id number] 2.5mg QD Take 1 UT 2.5 MG 9-13 tablet Health tablet 00:00: (2.5 mg 00 total) by mouth 1 (one) time each day. metoprolol Yes [id number] 50mg Q.5D Take 1 U T succinate [...] 50 MG 24 hr tablet lisinopril Yes [id number] 2.5mg QD Take 1 UT 2.5 MG - tablet Health tablet 00:00: (2.5 mg 00 total) by mouth 1 (one) time each day. metoprolol Yes [id number] 50mg Q.5D Take 1 U T succinate - tablet (50 Heal th XL 00:00: mg total) (Toprol-XL) 00 by mouth 2 50 MG 24 hr (two) tablet times a day. lisinopril 2020- No [id number] 2.5mg QD Take 1 UT 2.5 MG 02-08 tablet Health tablet 00:00: 00:00 (2.5 mg 00 :00 total) by mouth 1 (one) time each day. metoprolol 2020- No [id number] 50mg Q.5D Take 1 UT succinate 02-08 [...] 59 times a l tablet day. lisinopriL 2020-0 Yes 2.5mg QD Take 2.5 Me thodi [...] capsule 59 l busPIRone 0 Yes 15mg Q.11832928 Take 15 mg Methodi (BUSPAR) 10 4-26 [id number] mouth [address] MG tablet 16:32: [...] capsule 59 l busPIRone 0 Yes 15mg Q.[id number] Take 15 mg Methodi (BUSPAR) 10 4-26 [id number] by mouth 3 [address] MG tablet 11:32: [...] capsule 59 l busPIRone 2020-0 Yes 15mg Q.26488890 Take 15 mg Methodi (BUSPAR) 10 4-26 [id number] [address] mouth 3 [address] MG tablet 11:32: [...] capsule 59 l busPIRone 0 Yes 15mg Q.[id number] Take 15 mg Methodi (BUSPAR) 10 4-26 [id number] by mouth 3 [address] MG tablet 11:32: [...] capsule 59 l busPIRone 0 Yes 15mg Q.44449467 Take 15 mg Methodi (BUSPAR) 10 4-26 [id number] by mouth 3 [address] MG tablet 11:32: [...] Hospita capsule 59 l busPIRone Yes 15mg Q.[id number] Take 15 mg Methodi (BUSPAR) 10 4-26 [id number] [address] mouth 3 [address] MG tablet 11:32: [...] capsule 59 l busPIRone 0 Yes 15mg Q.80694650 Take 15 mg Methodi (BUSPAR) 10 - [id number] by mouth 3 st MG tablet 11:32: [...] QD Take 5 mg Meth ketty (MINIPRESS) -[address] 5 MG 11:32: nightly. Hospita capsule 59 l busPIRone 0 Yes 15mg Q.96127514 Take 15 mg Methodi (BUSPAR) 10 - [id number] by mouth 3 st MG tablet 11:32: [...] QD Take 5 mg Meth ketty (MINIPRESS) -[address] 5 MG 11:32: nightly. Hospita capsule 59 l busPIRone 0 Yes 15mg Q.[id number] Take 15 mg Methodi (BUSPAR) 10 -26 [id number] [address] mouth [address] MG tablet 11:32: 3D (three) Hospi ta 59 times a l day. ondansetron 0 Yes 8mg Q8H Take 8 mg M ethodi ODT 4-[address] (ZOFRAN-ODT 11:32: every 8 Hos denise ) 8 MG 59 (eight) l disintegrat hours as ing tablet needed for nausea or vomiting. bumetanide 2020-0 2020- No 2mg QD Take 2 mg U T (Bumex) 2 - 09-13 by mouth 1 Hea lth MG tablet [...] tablet hours for 10 [place] [id number] 1{tbl} Q6H Take 1-2 Methodi en-codeine 3-24 03-[address] (TYLENOL 00:00: 04:59 mouth Hospita WITH 00 :00 every 6 l CODEINE #3) (six) 300-30 mg hours as per tablet needed for moderate pain for up to 5 [place] [id number] 1{tbl} Q6H Take 1-2 Methodi en-codeine 3-24 03-[address] (TYLENOL 00:00: 04:59 mouth Hospita WITH 00 :00 every 6 l CODEINE #3) (six) 300-30 mg hours as per tablet needed for moderate pain for up to 5 days .acute pain. acetaminoph 2020- No [id number] 1{tbl} Q6H Take 1-2 Methodi en-codeine 3-24 03-[address] (TYLENOL 00:00: 04:59 mouth Hospita WITH 00 :00 every 6 l CODEINE #3) (six) 300-30 mg hours as per tablet needed for moderate pain for up to 5 days .acute pain. lacosamide 2020- No 200mg Q.5D Take 1 Met hodi (VIMPAT) 09-17 03-[address] 200 mg 00:00: 05:59 [...] No 100mg Take 100 M ethodi tartrate 9-26 09-[address] (LOPRESSOR) 17:49: 00:00 mouth. [...] tablet day. diazePAM 2019- 2020- No 10mg Q.00003679 Take 10 mg Methodi (VALIUM) 5 05-08 [id number] [address] mouth 3 [address] MG tablet 17:49: 00:00 3D (three) Hosp arcenio 43 :00 times a l day as needed for anxiety. penbutolol 2019- No 20mg QD Take 20 mg Methodi sulfate 05-[address] (PENBUTOLOL 17:49: 00:00 daily. Hos denise ORAL) 43 :00 l ondansetron 2020- No 4mg Q8H Take 4 mg Methodi ODT 05-[address] (ZOFRAN-ODT 17:49: 00:00 every 8 Ho spita ) 4 MG 43 :00 (eight) l disintegrat hours as ing tablet needed for nausea or vomiting. methocarbam 0 2019- No 750mg Q.5D Take 750 Methodi [...] 2.5mg QD Take 2.5 M ethodi (PRINIVIL) 9-26 09-[address] 2.5 mg 16:17: 00:00 mouth Hospita tablet 20 :00 daily. l butalbital- 2020- No 1{tbl} Q4H Take 1 M ethodi acetaminoph 05-[address] en-caff 00:00: 04:59 mouth Hospita (FIORICET) 00 :00 every 4 l 50-325-40 (four) mg per hours as tablet needed for headaches or migraine for up to 30 days. lactulose 2019- No 20g Q.[id number] Take 30 mL Methodi 20 gram/30 05-08 [id number] (20 g s t mL solution 00:00: 04:59 3D total) by Hospita 00 :00 mouth 3 l (three) times a day as needed (CONSTIPAT ION) for up to 30 days. meclizine 2019- No 25mg Q.[id number] Take 1 Methodi (ANTIVERT) 05-08 [id number] tablet (25 st 25 mg 00:00: 04:59 3D mg total) Hospit a tablet 00 :00 by mouth 3 l (three) times a day as needed for dizziness for up to 30 days. pregabalin 2019- No 50mg Q.[id number] Take 2 Methodi (LYRICA) 25 05-[id number] MG capsule 00:00: 04:59 3D [...] Take 2 mg M ethodi (BUMEX) 2 05-06-[address] MG tablet 08:51: 00:00 [...] :00 total) by Center mouth daily. albuterol No 2.5mg Take 0.[address] [...] ferrous Yes 325 mg = 1 Bhavesh amrio gluconate 7-03 tab, PO, l 325 mg [...] Memoria 7 Route: l 09:11: IVP, Drug Forbes 00 form: INJ, ONCE, Dosing Weight 68.182, [...] Memoria 7-03 Route: l 09:11: IVP, Drug Forbes 00 form: INJ, ONCE, Dosing Weight 68.182, [...] 7-03 Rate: l 0.9% IV 09:11: 1,000 Forbes 1000 mL 00 ml/hr, Infuse over: 1 [...] 7-03 Rate: l 0.9% IV 09:11: 1,000 Forbes 1000 mL 00 ml/hr, Infuse over: 1 [...] 7- Rate: l 0.9% IV 09:11: 1,000 Forbes 1000 mL 00 ml/hr, Infuse over: 1 hr, Route: IV, Dosing Weight 68.182 kg, Total Volume: 1,000, Start date: 02/13/16 4:11:00 CDT, Duration: 1 doses or times, Stop date: 02/13/16 5:10:00 CDT, Bolus Dose Reglan 2016-0 No 10 mg, Memoria 7- Route: l 09:11: IVP, Drug Forbes 00 form: INJ, ONCE, Dosing Weight 68.182, [...] 7- Rate: l 0.9% IV 09:11: 1,000 Forbes 1000 mL 00 ml/hr, Infuse over: 1 [...] 02-12 Route: PO, l 08:17: Drug form: Forbes 00 TAB, ONCE, Dosing Weight 68.182, kg, [...] 02-12 Route: PO, l 08:17: Drug form: Forbes 00 TAB, ONCE, Dosing Weight 68.182, kg, Priority: STAT, Start date: 02/13/16 3:17:00 CDT, Stop date: 02/13/16 3:17:00 CDT Acetaminoph 2016-0 No 650 mg, Mem oria en 02-12 Route: PO, l 08:17: Drug form: Forbes 00 TAB, ONCE, Dosing Weight 68.182, kg, Priority: STAT, Start date: 02/13/16 3:17:00 CDT, Stop date: 02/13/16 3:17:00 CDT Acetaminoph 2016-0 No 650 mg, Mem oria en 02-12 Route: PO, l 08:17: Drug form: Forbes 00 TAB, ONCE, Dosing Weight 68.182, kg, [...] Memoria 7- Route: l 06:19: IVP, Drug Forbes 00 form: INJ, ONCE, Dosing Weight 68.182, kg, Priority: STAT, Start date: 02/13/16 1:19:00 CDT, Stop date: 02/13/16 1:19:00 CDT Zofran 2016-0 No 4 mg, Memoria 7-03 Route: l 06:19: IVP, Drug Antonio 00 form: INJ, ONCE, Dosing Weight 68.182, kg, Priority: STAT, Start date: 02/13/16 1:19:00 CDT, Stop date: 02/13/16 1:19:00 CDT Zofran 2016-0 No 4 mg, Memoria 7- Route: l 06:19: IVP, Drug Forbes 00 form: INJ, ONCE, Dosing Weight 68.182, kg, Priority: STAT, Start date: 02/13/16 1:19:00 CDT, Stop date: 02/13/16 1:19:00 CDT Zofran 2016-0 No 4 mg, Memoria 7- Route: l 06:19: IVP, Drug Forbes 00 form: INJ, ONCE, Dosing Weight 68.182, [...] Memoria 7- Route: l 06:19: IVP, Drug Forbes 00 form: INJ, ONCE, Dosing Weight 68.182, kg, Priority: STAT, Start date: 02/13/16 1:19:00 CDT, Stop date: 02/13/16 1:19:00 CDT Zofran 2016-0 No 4 mg, Memoria 7- Route: l 06:19: IVP, Drug Forbes 00 form: INJ, ONCE, Dosing Weight 68.182, kg, Priority: STAT, Start date: 02/13/16 1:19:00 CDT, Stop date: 02/13/16 1:19:00 CDT Zofran 2016-0 No 4 mg, Memoria 7-03 Route: l 06:19: IVP, Drug Antonio form: INJ, ONCE, Dosing [...] 0.9% 7-03 (Same as: l 06:07: BD Forbes 00 Posiflush) Saline No Notes: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 Scheduled 2021-06-29 INFLUENZA VACCINE Method [facility] Hospital Test 11:36:01 [code = INFLUENZA VACCINE] [...] [facility] Center cervix (procedure) [code = 216117757] Future Scheduled [address] [facility] 00:[facility] malignant neoplasm of [facility] Center cervix (procedure) [code = 956453724] Future Scheduled [address] [facility] Test 00:00:00 malignant neoplasm of [facility] Center cervix (procedure) [code = 085718893] Future Scheduled [address] [facility] Test 00:00:00 malignant neoplasm of [facility] Center cervix (procedure) [code = 276319650] Future Scheduled [address] [facility] Test 00:00:00 malignant neoplasm of [facility] Center cervix (procedure) [code = 350631165] Future Scheduled [address] [facility] Test 00:00:00 malignant neoplasm of [facility] Center cervix (procedure) [code = 889755468] Future Scheduled [address] [facility] Test 00:00:00 malignant neoplasm of [facility] Center cervix (procedure) [code = 173524150] Future Scheduled [address] [facility] Test 00:00:00 malignant neoplasm of [facility] Center cervix (procedure) [code = 661386258] Future Scheduled [address] [facility] Test 00:00:00 malignant neoplasm of [facility] Center cervix (procedure) [code = 104992794] Future Scheduled 1991 HEPATITIS C SCREENING CH [...] Medica l Center colon (procedure) [code = 631699149] Future Scheduled [address] [facility] Test 00:00:00 malignant neoplasm of [facility] Center colon (procedure) [code = 378337071] Future Scheduled [address] [facility] Test 00:00:00 malignant neoplasm of [facility] colon (procedure) [code = 402432196] Future Scheduled [address] [facility] Test 00:00:00 malignant neoplasm of [facility] Center colon (procedure) [code = 359787859] Future Scheduled 1973 S[facility]oidoscopy [facility] [address] [facility] 00:00:00 (combo) [code = CT Medical C enter Colonography (combo)] Future Scheduled [address] [facility] Test 00:00:00 malignant neoplasm of [facility]ica [facility] Center colon (procedure) [code = 797590762] Future Scheduled [address] [facility] 00:[facility]:00 malignant neoplasm of [facility] Center colon (procedure) [code = 765636504] Future Scheduled [address] [facility] Test 00:00:00 malignant neoplasm of [facility] Center colon (procedure) [code = 201276134] Future Scheduled [address] [facility] Test 00:00:00 malignant neoplasm of [facility] Center colon (procedure) [code = 158641627] Future Scheduled 1973 S[facility]oidoscopy [facility]oscopy] Medical [facility]e r Future Scheduled [address] [facility] 00:00:00 (combo) [code = CT Medical C enter Colonography (combo)] Future Scheduled [address] [facility] Test 00:00:00 malignant neoplasm of [facility] Center colon (procedure) [code = 489793819] Future Scheduled [address] [facility] Test 00:00:00 malignant neoplasm of [facility] Center colon (procedure) [code = 647299915] Future Scheduled [address] [facility] Test 00:00:00 malignant neoplasm of [facility] Center colon (procedure) [code = 691030930] Future Scheduled [address] [facility] Test 00:00:00 malignant neoplasm of [facility] Center colon (procedure) [code = 333602856] Future Scheduled 1973 S[facility]oidoscopy [facility]] Medical [facility] r Future Scheduled [address] [facility] 00:00:00 (combo) [code = CT Medical C enter Colonography (combo)] Future Scheduled [address] [facility] Test 00:00:00 malignant neoplasm of [facility]ica [facility] Center colon (procedure) [code = 146362516] Future Scheduled [address] [facility] Test 00:00:00 malignant neoplasm of [facility] Center colon (procedure) [code = 954845999] Future Scheduled [address] [facility] Test 00:00:00 malignant neoplasm of [facility] Center colon (procedure) [code = 748037606] Future Scheduled [address] [facility] Test 00:00:00 malignant neoplasm of [facility] Center colon (procedure) [code = 072660911] Future Scheduled 1973 S[facility]oidoscopy [facility]] Medical [facility]e r Future Scheduled [address] [facility] Test 00:00:00 (combo) [code = CT Medical C enter Colonography (combo)] Future Scheduled [address] [facility] Test 00:00:00 malignant neoplasm of [facility]ica [facility] Center colon (procedure) [code = 093703427] Future Scheduled [address] [facility] Test 00:00:00 malignant neoplasm of [facility] Center colon (procedure) [code = 837531433] Future Scheduled [address] [facility] Test 00:00:00 malignant neoplasm of [facility]ica [facility] Center colon (procedure) [code = 812751368] Future Scheduled [address] [facility] Test 00:00:00 malignant neoplasm of Medica [facility] Center colon (procedure) [code = 274908239] Future Scheduled 1973 [facility] [address] [facility] 00:00:00 (combo) [code = CT Medical C enter Colonography (combo)] Future Scheduled [address] [facility] Test 00:00:00 malignant neoplasm of [facility]ica [facility] Center colon (procedure) [code = 942003292] Future Scheduled [address] [facility] Test 00:00:00 malignant neoplasm of [facility]ica [facility] Center colon (procedure) [code = 868074089] Future Scheduled [address] [facility] Test 00:00:00 malignant neoplasm of [facility] Center colon (procedure) [code = 480914384] Future Scheduled [address] [facility] Test 00:00:00 malignant neoplasm of [facility]ica [facility] Center colon (procedure) [code = 075600745] Future Scheduled 1973 [facility]oidoscopy [facility] [address] [facility] Test 00:00:00 malignant neoplasm of Medica l Center colon (procedure) [code = 323085932] Future Scheduled [address] [facility] Test 00:00:00 malignant neoplasm of [facility]ica l Center colon (procedure) [code = 955765917] Future Scheduled COVID-19 VACCINE (1) Met [facility] Test [code = COVID-19 VACCINE (1)] Future Scheduled Hepatitis C screening [facility] Test (procedure) [code = 382100968] [facility]uled [facility] malignant neoplasm of cervix (procedure) [code = 581446897] Future Scheduled INFLUENZA VACCINE [facility] Test [code = INFLUENZA VACCINE] Encounters Start End Encounter Admission Attending Care Care Encounter Source Date/Time Date/Time Type Type Clinicians Facility Department ID 2021-04-25 Outpatient [facility] [id number] [place] 12:28:46 [facility] 2020-12-18 Outpatient [facility] [id number] [place] 04:17:31 [facility] 2022-12-11 2022-12-12 Emergency [facility] [id number] Univers 20:26:00 02:05:00 MIHIR kowalski [facility] 2022-12-11 2022-12-12 Emergency [facility] [id number] [id number] Univers 20:26:00 02:05:00 Mihir GALLARDO 350.1.13.10 ity [facility] 4.2.7.2.686 [facility] [id number] [address] 2022-11-27 2022-11-27 Emergency X [facility] ERT [id number] Univers 13:12:00 20:16:00 SIMRAN kowalski [facility] 2022-11-27 2022-11-27 Emergency [facility] 1.2.270.192 [id number] Univers 13:12:00 20:16:00 Simran GALLARDO 350.1.13.10 i ty of [place] 4.2.7.2.686 [facility] [id number] [address] 2022-11-27 2022-11-27 Orders Doctor EISENBERG 1.2.840.114 [id number] Univers 00:00:00 00:00:00 Only Unassigned, JOVANNA 350.1.13.10 ity of [facility] 4.2.7.2.686 Donal [id number] [facility] [address] 2022-08-14 2022-08-14 [facility] 1.2.614.502 [id number] Univers 20:40:00 23:10:00 [facility]ima [facility] 4.2.7.2.686 [facility] [id number] [facility] [address] 2022-08-14 2022-08-14 Emergency [facility] ERT [id number] Univers 20:40:00 23:10:00 [facility]22-05-16 2022-05-16 Outpatient Arceneaux_C VFP VFP 221 1653-20 Village 00:00:00 00:00:00 [id number] Family Practic e 2021-06-29 2021-06-29 Emergency James, 1.2.840.1 [id number] Methodi 10:17:00 12:01:00 Haroon Young [address]262.1.[address] 3.430.2.7 Hospit a .3.982991 l .8 2021-06-29 2021-06-29 Travel 1.2.840.1 1.2.824.908 3416 [id number] Methodi 00:00:00 00:00:[address] 3.430.2.7 0.2.7.3.698 Ho spita .3.370731 084.8 l .8 2021-05-05 2021-05-06 Emergency ER [place], [facility] [id number] 20:22:00 01:24:00 Joe Lai [facility] 2021-05-05 2021-05-05 Emergency ER [facility] Emergency [id number] [facility] 20:07:00 20:07:00 2021-05-05 2021-05-05 Travel [facility] [id number] [facility] 00:[facility] 00:00:00 [facility] 2021-04-25 2021-04-25 Office VINCE Olivares [facility] 1.2.840.114 [id number] PA 10:00:00 12:28:43 Visit Leandro [facility] 350.1.13.[address] 9.2.7.2.686 [id number] 4 2021-02-18 2021-02-18 Emergency E MATTHIAS, [facility] [address] [facility] 08:39:00 12:51:00 TEJAL 2021-02-08 2021-02-08 Orders HenriquezNaa dimasa [facility] 1.2.840.11 4 [id number] PA 00:00:00 00:00:00 Only [place] MED 350.1.13.58 Health [address] 4 9.2.7.2.686 [id number] 4 2021-02-08 2021-02-08 Orders VINCE Henriquez [facility] 1.2.840.114 [id number] 00:00:00 00:00:00 Only [place] SW MED 350.1.13.58 PLA[address] 4 9.2.7.2.686 [id number] 4 2020-12-20 2020-12-20 Telephone Vinson, 1.2.840.1 [id number] 2100 [id number] Methodi 00:00:00 00:00:[address] 3.430.2.7 Hospit a .3.848917 l .8 2020-12-16 2020-12-16 VINCE Dimas [facility] [id number] 7276 PA 11:00:00 11:00:00 t; LEANDRO OLIVARES, Advanced P jn PANTOJA M.D. Cardiology [facility] 2020-12-14 2020-12-14 Telephone Vinson, 1.2.840.1 [id number] 2100 [id number] Methodi 00:00:00 00:00:[address] 3.430.2.7 Hospit a .3.371995 l .8 2020-12-07 2020-12-08 Outpatient E ERLINDA, [facility] PUL 7502 [facility] 17:43:00 13:15:00 VIRAL 2020-12-08 2020-12-08 EXT MHH OP Khalid, EXT MSRDP 1.2.840.114 1 [id number] [place] 00:00:00 00:00:00 Adnan LOCATION 350.1.13.58 H ealth 9.2.7.2.686 [id number] 0 2020-12-08 2020-12-08 EXT MHH OP Khalid, EXT MSRDP 1.2.840.114 1 [id number] [place] 00:00:00 00:00:00 Adnan LOCATION 350.1.13.58 H ealth 9.2.7.2.686 [id number] 0 2020-12-06 2020-12-06 Appointmen JEANNIE [facility] UTP [id number] [place] 14:00:00 14:00:00 t; BANK BEHALIANE Phys ici millicent CHAMBERS SANDIPAN SANDIPAN PATI, M.D. PATI, M.D. 2020-12-03 2020-12-06 [facility] 1.2.840.1 [id number] Methodi 16:45:00 11:32:00 Obdulio Spicer 69157.1.[address] 3.430.2.7 Hospit a .3.729968 l .8 2020-12-02 2020-12-02 Appointmen VINCE OLIVARES ACTAT [id number] [place] 11:15:00 11:15:00 t; LEANDRO OLIVARES, Surgery - Chalo Cruz M.D. 2020-11-17 2020-11-17 Emergency García, 1.2.840.1 [id number] 2100 [id number] Methodi 17:26:00 20:59:[address] [place] 3.430.2.7 Hospit a .3.407838 l .8 2020-11-17 2020-11-17 Appointmen VINCE MATHEWS UTP [id number] [place] 15:00:00 15:00:00 t; Carter ROQUE i, M.D. ans ASHTON, M.D. 2020-11-17 2020-11-17 Travel 1.2.840.1 1.2.856.702 6735 585019 Methodi 00:00:00 00:00:[address] 3.430.2.7 0.2.7.3.698 Ho spita .3.569530 084.8 l .8 2020-11-02 2020-11-03 Emergency Dionicio, 1.2.840.1 [id number] 2 [id number] Methodi 23:00:00 01:47:[address] [place] 3.430.2.7 Hospit a .3.880176 l .8 2020-11-02 2020-11-02 Travel 1.2.840.1 1.2.419.177 3258 030103 Methodi 00:00:00 00:00:[address] 3.430.2.7 0.2.7.3.698 Ho spita .3.137856 084.8 l .8 2020-09-16 2020-09-17 Emergency [place] 1.2.840.1 1041 [id number] [id number] Methodi 13:34:00 13:30:00 Clarice Brannon 98697.1.[address] Javier Lj Britni 3.430.2.7 Hospita .3.415088 l .8 2020-09-10 2020-09-11 Emergency Jose Elias Torres 1.2.840.1 1041 73942 [id number] Methodi 22:04:00 18:12:00 Lydia Oden [address]591.1.[address] DickeyMaribel cisneros 3.430.2.7 H ospita Nasfacundo, Lj Britni .3.566083 l .8 2020-09-10 2020-09-10 Travel 1.2.840.1 1.2.087.936 8914 088543 Methodi 00:00:00 00:00:[address] 3.430.2.7 0.2.7.3.698 Ho spita .3.985256 084.8 l .8 2020-07-15 2020-07-16 Emergency Pedro, 1.2.840.1 [id number] 2099 [id number] Methodi 20:20:00 01:48:[address] [place] 3.430.2.7 Hospit a .3.789253 l .8 2020-07-15 2020-07-15 Travel 1.2.840.1 1.2.643.776 1792 875557 Methodi 00:00:00 00:00:[address] 3.430.2.7 0.2.7.3.698 Ho spita .3.221360 084.8 l .8 2020-05-06 2020-05-08 Emergency Kevin Sood 1.2.840.1 1041 74610 [id number] Methodi 00:09:00 12:49:00 Blaze Squires [address]837.1.[address] 3.430.2.7 Hospit a .3.900428 l .8 2020-05-06 2020-05-06 Travel 1.2.840.1 1.2.645.276 9837 [id number] Methodi 00:00:00 00:00:[address] 3.430.2.7 0.2.7.3.698 Ho spita .3.807678 084.8 l .8 2020-02-20 2020-02-20 Emergency ER [facility] Emergency [id number] [facility] 19:04:00 19:04:00 2020-02-20 2020-02-20 Outpatient FBCOVID FBCOVID [id number] FBCOVID 00:00:00 00:00:00 [id number] 9926-06-24 2020-02-04 Outpatient Mason [facility] [id number] [place] 10:15:00 23:59:00 CWANZA [facility] 2020-02-04 2020-02-04 Emergency ER [facility] Emergency [id number] [facility] 05:29:00 05:29:00 2019-12-03 2019-12-03 Emergency E BRITNI RODRIGUEZ [employer] 7501 Memoria 16:11:00 19:03:00 [facility] 2019-12-03 2019-12-03 Outpatient KARISHMA, [employer] 0122 Memoria 17:00:00 18:55:00 FARID l [facility] 2019-10-12 2019-10-12 Emergency [facility] [id number] [facility] 17:06:00 17:06:00 [id number] 2019-08-25 2019-08-25 Emergency E [facility] NW 0013 [facility] 17:44:00 17:44:00 2016-02-13 2016-02-13 EC nullFlavo [facility] [id number] Memoria 05:43:00 11:41:00 Emergency r Antonio [address] [facility] 2016-02-13 2016-02-13 EC nullFlavo [facility] [id number] Memoria 05:43:00 11:41:00 Emergency r Forbes [facility] [address] [facility] 2016-02-13 2016-02-13 Outpatient Fishman, [facility] [id number] 00:43:00 06:41:00 Malorie 00 Suzanne 2014-09-04 2014-09-04 EC nullFlavo [facility] [id number] Memoria 07:09:00 09:15:00 Emergency r Antonio 19 l [facility] 2014-09-04 2014-09-04 EC nullFlavo [facility] [id number] Memoria 07:09:00 09:15:00 Emergency r Antonio 19 l [facility] 2014-09-04 2014-09-04 Outpatient Aldo 2.16.840. 2.16.840.1. [id number] 01:09:00 03:15:00 Nay 1.809556. 046568.3.61 19 3.615.0.1 5.0.759 35 6720-01-12 2014-08-24 [facility] [id number] Memoria 17:17:00 22:15:00 Emergency r Antonio 18 l [facility] 2014-08-24 2014-08-24 [facility] [id number] Memoria 17:17:00 22:15:00 Emergency r Antonio 18 l [facility] 2014-08-24 2014-08-24 Outpatient Aldo, 2.16.840. 2.16.840.1. [id number] 11:17:00 16:15:00 Tatsuo 1.427982. 963951.3.61 18 3.615.0.1 5.0.101 01 Results Test Description Test Time Test Comments Results Result Comments Source CBC WITH DIFF 2022-12-12 06:04:41 Test Item Value Reference Range Interpretation Comme nts WBC (test code = 6690-2) 10.43 See_Comment [A utomated message] The system which Yatra nerated this result transmit gaye reference range: 4.30 - 1 1.10 10*3/?L. The reference r ozzy was not used to interpr et this result as normal/abnor mal. RBC (test code = 789-8) 4.98 See_Comment [Au tomated message] The system which Yatra nerated this result transmit gaye reference range: 3.93 - 5 .25 10*6/?L. The reference r ozzy was not used to interpr et this result as normal/abnor mal. HGB (test code = 718-7) 15.0 g/dL 11.6-15.0 HCT (test code = 4544-3) 43.9 % 35.7-45.2 MCV (test code = 787-2) 88.2 fL 80.6-95.5 MCH (test code = 785-6) 30.1 pg 25.9-32.8 MCHC (test code = 786-4) 34.2 g/dL 31.6-35.1 RDW-SD (test code = 54608-3) 40.3 fL 39.0-49.9 RDW-CV (test code = 788-0) 12.5 % 12.0-15.5 PLT (test code = 777-3) 437 See_Comment H [Au tomated message] The system which ge nerated this result transmit gaye reference range: 166 - 35 8 10*3/?L. The reference range was not used to interpret th is result as normal/abnormal . MPV (test code = 57571-5) 9.9 fL 9.5-12.9 NRBC/100 WBC (test code = 0.0 See_Comment [ Automated message] The 3669600183) system which ge nerated this result transmit gaye reference range: 0.0 - 10 .0 /100 WBCs. The reference r ozzy was not used to interpr et this result as normal/abnor mal. NRBC x10^3 (test code = See_Comment [Au tomated message] The 3013959352) system which ge nerated this result transmit gaye reference range: 10*3/?L. The reference range was not u sed to interpret this result as normal/abnormal . SEG % (test code = 02611-4) 41 % 33-76 LYMPH % (test code = 48 % 14-54 74050-4) MONO % (test code = 20584-0) 8 % 0-4 H EOS % (test code = 47435-4) 3 % 0-3 ANC (test code = 753-4) 4.28 10*3/uL 1.88-7.09 Lab Interpretation (test Abnormal code = 59847-9) [facility]. METABOLIC PANEL (20024)2022-12-12 05:29:31 Test Item Value Reference Range Interpretation Comments NA (test code = 138 mmol/L 135-145 7543353996) K (test code = 4.3 mmol/L 3.5-5.0 0797695394) CL (test code = 106 mmol/L 98-108 4120423664) CO2 TOTAL (test code = 21 mmol/L 23-31 L 4918134044) AGAP (test code = 11 2-16 2720040582) BUN (test code = 8 mg/dL 7-23 0916669265) GLUCOSE (test code = 113 mg/dL 70-110 H 0035594761) CREATININE (test code = 0.59 mg/dL 0.50-1.04 4220779390) TOTAL BILI (test code = 1.0 mg/dL 0.1-1.5 2327037575) CALCIUM (test code = 9.3 mg/dL 8.6-10.6 2060342411) T PROTEIN (test code = 7.3 g/dL 6.3-8.2 4170881732) ALBUMIN (test code = 4.3 g/dL 3.5-5.0 9936820736) ALK PHOS (test code = 59 U/L 34-122 7526961360) ALTv (test code = 25 U/L 5-35 1742-6) AST(SGOT) (test code = 24 U/L 13-40 7042171495) eGFR (test code = 108.3 mL/min/1.73m2 4943248149) CIRO (test code = CIRO) Association of Glomerular Filtration Rate (GFR) and Staging of Kidney Disease* + --+ --+ ------+| GFR (mL/min/1.73 m2) ?| With Kidney Damage ?| ?Without Kidney Damage+ --------+ --------+ +| ?>90 ?| ?Stage one ?| ? Normal ?+ ---+ ---+ -------+| ?60-89 ?| ?Stage two ?| ? Decreased GFR ? + --+ --+ ------+| ?30-59 ?| ?Stage three ?| ? Stage three ? + --+ --+ ------+| ?15-29 ?| ?Stage four ? | ? Stage four ?+ ---+ ---+ -------+| ?<15 (or dialysis) ? ?| ?Stage five ? | ? Stage five ?+ ---+ ---+ -------+ *Each stage assumes the associated GFR level [...] or urine or abnormalities in imaging tests). Lab Interpretation Abnormal (test code = 85327-9) [facility] 05:29:31 Test Item Value Reference Range Interpretation Comments LIPASE (test code = 9897700213) 133 U/L 0-220 Lab Interpretation (test code = Normal 90233-3) [facility] [id number] 23:18:00 Test Item Value Reference Range Interpretation Comments POCT PREG (test code = 1605) Negative On board controls acceptable with Present C Line (test code = 3575) POCT PREG LOT # (test code = 3383) [id number] POCT PREG TEST DATE (test 05-18-2024 code = 3576) Lab Interpretation (test code = Normal 81433-6) [facility] METABOLIC PANEL (NA, K, CL, CO2, GLUCOSE, BUN, CREATININE, CA)2022-11-27 20:08:10 Test Item Value Reference Range Interpretation Comments NA (test code = 138 mmol/L 135-145 5931202375) K (test code = 4.7 mmol/L 3.5-5.0 3674154504) CL (test code = 104 mmol/L 98-108 4743042451) CO2 TOTAL (test code = 21 mmol/L 23-31 L 6622420146) AGAP (test code = 13 2-16 3243466932) BUN (test code = 6 mg/dL 7-23 L 1743941920) GLUCOSE (test code = 98 mg/dL 70-110 3574899908) CREATININE (test code = 0.55 mg/dL 0.50-1.04 0554449487) CALCIUM (test code = 9.0 mg/dL 8.6-10.6 8655184627) eGFR (test code = 117.5 mL/min/1.73m2 8825495560) CIRO (test code = CIRO) Association of Glomerular Filtration Rate (GFR) and Staging of Kidney Disease* + --+ --+ ------+| GFR (mL/min/1.73 m2) ?| With Kidney Damage ?| ?Without Kidney Damage+ --------+ --------+ +| ?>90 ?| ?Stage one ?| ? Normal ?+ ---+ ---+ -------+| ?60-89 ?| ?Stage two ?| ? Decreased GFR ? + --+ --+ ------+| ?30-59 ?| ?Stage three ?| ? Stage three ? + --+ --+ ------+| ?15-29 ?| ?Stage four ? | ? Stage four ?+ ---+ ---+ -------+| ?<15 (or dialysis) ? ?| ?Stage five ? | ? Stage five ?+ ---+ ---+ -------+ *Each stage assumes the associated GFR level [...] or urine or abnormalities in imaging tests). Lab Interpretation Abnormal (test code = 83149-0) [facility] WITH [id number] 19:53:46 Test Item Value Reference Range Interpretation Comments WBC (test code = 9.87 See_Comment [Automated 0790-2) message] The sy stem which generated this result transmitted reference range : 4.30 - 11.10 10*3/?L. The reference range was not used to interpret this result as normal/abnormal . RBC (test code = 4.86 See_Comment [Automated 899-8) message] The sy stem which generated this result transmitted reference range : 3.93 - 5.25 10*6/?L. The reference range was not used to interpret this result as normal/abnormal . HGB (test code = 15.1 g/dL 11.6-15.0 H 718-7) HCT (test code = 42.9 % 35.7-45.2 4544-3) MCV (test code = 88.3 fL 80.6-95.5 787-2) MCH (test code = 31.1 pg 25.9-32.8 785-6) MCHC (test code = 35.2 g/dL 31.6-35.1 H 786-4) RDW-SD (test code = 41.0 fL 39.0-49.9 23477-5) RDW-CV (test code = 12.8 % 12.0-15.5 788-0) PLT (test code = 399 See_Comment H [Automated 777-3) message] The sy stem which generated this result transmitted reference range : 166 - 358 10*3/ ?L. The reference r ozzy was not used to interpret this result as normal/abnormal . MPV (test code = 9.6 fL 9.5-12.9 85060-1) NRBC/100 WBC (test 0.0 See_Comment [Automat ed code = 7778637527) message] The system which generated this result transmitted reference range : 0.0 - 10.0 /100 WBCs. The refer ence range was not u sed to interpret th is result as normal/abnormal . NRBC x10^3 (test code See_Comment [Auto mated = 2245490572) message] The s ystem which generated this result transmitted reference range : 10*3/?L. The reference range was not used to interpret this result as normal/abnormal . GRAN MAT (NEUT) % 57.8 % (test code = 770-8) IMM GRAN % (test code 0.70 % = 3818007326) LYMPH % (test code = 32.4 % 736-9) MONO % (test code = 5.2 % 5905-5) EOS % (test code = 3.0 % 713-8) BASO % (test code = 0.9 % 706-2) GRAN MAT x10^3(ANC) 5.70 10*3/uL 1.88-7.09 (test code = 0578211085) IMM GRAN x10^3 (test 0.07 10*3/uL 0.00-0.06 H code = 4733802363) LYMPH x10^3 (test code 3.20 10*3/uL 1.32-3.29 = 731-0) MONO x10^3 (test code 0.51 10*3/uL 0.33-0.92 = 742-7) EOS x10^3 (test code = 0.30 10*3/uL 0.03-0.39 711-2) BASO x10^3 (test code 0.09 10*3/uL 0.01-0.07 H = 704-7) Lab Interpretation Abnormal (test code = 98391-2) [facility], [id number] 04:20:10 Test Item Value Reference Range Interpretation Comments PREG SERUM (test code Negative = 4674572564) CIRO (test code = CIRO) Less than 10 IU/L. ?If low titer or ectopic is suspected, resubmit specimen in 48-[address] [facility]TR[facility] [id number] 03:49:08 Test Item Value Reference Interpretation Comments Range TROPONIN I (test 0.001 ng/mL See_Comment [Automated code = 1768410228) message] The system which generated this result [...] biotin. Lab Interpretation Normal (test code = 68257-0) [facility] METABOLIC PANEL (89464)2022-08-15 03:37:26 Test Item Value Reference Range Interpretation Comments NA (test code = 138 mmol/L 135-145 8149068698) K (test code = 3.6 mmol/L 3.5-5.0 4022837690) CL (test code = 105 mmol/L 98-108 9119158108) CO2 TOTAL (test code 24 mmol/L 23-31 = 3041851803) AGAP (test code = 2-16 6683853027) BUN (test code = 9 mg/dL 7-23 7506911188) GLUCOSE (test code = 105 mg/dL 70-110 4661179263) CREATININE (test code 0.75 mg/dL 0.50-1.04 = 7677324672) TOTAL BILI (test code 0.6 mg/dL 0.1-1.1 = 1952076574) CALCIUM (test code = 8.7 mg/dL 8.6-10.6 2024213160) T PROTEIN (test code 6.7 g/dL 6.3-8.2 = 5648101880) ALBUMIN (test code = 3.9 g/dL 3.5-5.0 1553050359) ALK PHOS (test code = 69 U/L 34-122 8658611850) ALTv (test code = 35 U/L 5-35 2-6) AST(SGOT) (test code 27 U/L 13-40 = 7803608941) eGFR (test code = mL/min/1.73m2 7496372746) CIRO (test code = CIRO) Association of [...] or urine or abnormalities in imaging tests). [facility] WITH [id number] 03:25:05 Test Item Value Reference Range Interpretation [...] RDW-SD (test code = 41.3 fL 39.0-49.9 46300-7) RDW-CV (test code = 12.5 % 12.0-15.5 788-0) PLT (test code = See_Comment H [Automated 777-3) message] The sy stem which generated this result transmitted reference range : 166 - 358 10*3/ ?L. The reference r ozzy was not used to interpret this result as normal/abnormal . MPV (test code = 9.4 fL 9.5-12.9 L 23219-1) NRBC/100 WBC (test See_Comment [Automat ed code = 5588196565) message] The system which generated this result transmitted reference range : 0.0 - 10.0 /100 WBCs. The refer ence range was not u sed to interpret th is result as normal/abnormal . NRBC x10^3 (test code See_Comment [Auto mated = 4317002464) message] The s ystem which generated this result transmitted reference range : 10*3/?L. The reference range was not used to interpret this result as normal/abnormal . GRAN MAT (NEUT) % 55.2 % (test code = 770-8) IMM GRAN % (test code 0.50 % = 3335437634) LYMPH % (test code = 30.7 % 736-9) MONO % (test code = 6.4 % 5905-5) EOS % (test code = 6.2 % 713-8) BASO % (test code = 1.0 % 706-2) GRAN MAT x10^3(ANC) 5.54 10*3/uL 1.88-7.09 (test code = 5799352142) IMM GRAN x10^3 (test 0.05 10*3/uL 0.00-0.06 code = 1431330681) LYMPH x10^3 (test code 3.08 10*3/uL 1.32-3.29 = 731-0) MONO x10^3 (test code 0.64 10*3/uL 0.33-0.92 = 742-7) EOS x10^3 (test code = 0.62 10*3/uL 0.03-0.39 H 711-2) BASO x10^3 (test code 0.10 10*3/uL 0.01-0.07 H = 704-7) Lab Interpretation Abnormal (test code = 41986-9) [facility] HospitalLevetiracetam [id number] 14:27:33 Test Item Value Reference Interpretation Comments Range Levetiracetam (test <2.0 mcg/mL L Referen ce Range: code = 7394168) 12.0-46.0 To xic level is not we ll established. Interpretation should include a clinical evaluation. For additional information, pl ease refer tohttp://educat ion.Q ebookpie .[employer] faq/XRM815(This link is being provid ed forinformationa l/edu cational purpos es only.) This jose t was developed and i ts analytical performance characteristics have been determined by [employer]. It has not been cleared or appr christiano by theFDA. This assay has been validated pursu ant to the CLIA regulations and is used for clinic al purposes. CIRO (test code = Performing Lab CIRO) *GAGANDEEP [employer] [facility], [address] [place] [phone] Parminder Szymanski MD Lab Interpretation Abnormal (test code = 85503-2) [facility] CaliforniaLevetiracetam [id number] 14:27:33 Test Item Value Reference Interpretation Comments Range Levetiracetam (test <2.0 mcg/mL L Referen ce Range: code = 8928474) 12.0-46.0 To xic level is not we ll established. Interpretation should include a clinical evalua tion. For additional information, pl ease refer tohttp://educat ion.[employer] faq/DNO186(This link is being provid ed forinformationa l/edu cational purpos es only.) This jose t was developed and i ts analytical performance characteristics have been determined by [employer]. It has not been cleared or appr christiano by theFDA. This assay has been validated pursu ant to the CLIA regulations and is used for clinic al purposes. CIRO (test code = Performing Lab CIRO) *GAGANDEEP [employer] [facility], [address] [place] [phone] Parminder Szymanski MD Lab Interpretation Abnormal (test code = 56177-0) [facility] CaliforniaCT, BRAIN, WITHOUT [id number] 23:05:00 Unlisted Reason for Exam - Click Yes and Enter Reason Below->No [facility] 1975 [...] Date/Time: 05/05/2021 23:05:29 CT, SPINE, CERVICAL, WO [id number] 23:05:00Unlisted Reason for Exam - Click Yes and Enter Reason Below->No [facility] 1975 [...] Aneudy Asencio MDReport Verified Date/Time: 05/05/2021 23:05:29 [facility] [id number] 21:22:45 Test Item Value Reference Range Interpretation Comments Troponin I (test code = <0.03 0.00-0.15 81578-1) CIRO (test code = CIRO) Troponin I [...] THELMA Lab Interpretation (test Normal code = 13539-1) [facility] CaliforniaTroponin [id number] 21:22:45 Test Item Value Reference Range Interpretation Comments Troponin I (test code = <0.03 0.00-0.15 55494-8) CIRO (test code = CIRO) Troponin I [...] THELMA Lab Interpretation (test Normal code = 00187-1) [facility] CaliforniaTROPONIN [id number] 21:22:45 Test Item Value Reference Range Interpretation [...] failure, acidosis, acute neurological disease, and persistent tachyarrhythmia.[employer] Operator ID - JUSTINComprehensive metabolic [id number] 21:20:36 Test Item Value Reference Interpretation Comments Range Protein, Total (test 7.5 See_Comment Specime n code = 2885-2) slightly hemolyzed [Automated message] The system which generated this result transmitted reference range : 6.0 - 8.5 gm/dL . The reference range was not used to interpret this result as normal/abnormal . Albumin (test code = 4.1 g/dL 3.5-5.0 [place] n [address]-8) slightly hemolyzed Alkaline Phosphatase 72 U/L 30-115 (test code = 6768-6) Total Bilirubin 1.0 mg/dL 0.1-1.2 Specimen (test code = 1974-2) slightl y hemolyzed Sodium (test code = 141 meq/L 104-470 8762-2) Potassium (test code 3.8 meq/L 3.6-5.5 Specime n = 2823-3) slightly hemolyzed Chloride (test code 104 meq/L 98-106 = 2075-0) CO2 (test code = 24 meq/L 20-29 2027-9) BUN (test code = 7 mg/dL 10-26 L 3094-0) Creatinine (test 0.81 mg/dL 0.50-1.20 Specimen code = 2160-0) slightly hemolyzed Glucose (test code = 92 mg/dL 70-110 2345-7) Calcium (test code = 9.4 mg/dL 8.5-10.5 30017-2) AST (test code = 21 U/L 5-40 Specimen 1920-8) slightly hemolyzed ALT (test code = 27 U/L 5-50 Specimen 1742-6) slightly hemolyzed EGFR (test code = 76 mL/min/1[place] [address]-1) m NOT ACCURATE CREATININE CLEARANCE IN PREDICTING GLOMERULAR FILTRATION RATE . ESTIMATED GFR I S NOT APPLICABLE FOR DIALYSIS PATIENTS. CIRO (test code = [employer] Operator ID - CIRO) JUSTINOperator ID [...] THELMA Lab Interpretation Abnormal (test code = 20005-1) [facility] CaliforniaComprehensive metabolic [id number] 21:20:36 Test Item Value Reference Interpretation Comments Range Protein, Total (test 7.5 See_Comment Specime n code = 2885-2) slightly hemolyzed [Automated message] The system which generated this result transmitted reference range : 6.0 - 8.5 gm/dL . The reference range was not used to interpret this result as normal/abnormal . Albumin (test code = 4.1 g/dL 3.5-5.0 [place] n [address]-2) slightly hemolyzed Alkaline Phosphatase 72 U/L 30-115 (test code = 6768-6) Total Bilirubin 1.0 mg/dL 0.1-1.2 Specimen (test code = 1974-2) slightl y hemolyzed Sodium (test code = 141 meq/L 389-274 4024-2) Potassium (test code 3.8 meq/L 3.6-5.5 Specime n = 2823-3) slightly hemolyzed Chloride (test code 104 meq/L 98-106 = 2075-0) CO2 (test code = 24 meq/L 20-29 2028-9) BUN (test code = 7 mg/dL 10-26 L 3094-0) Creatinine (test 0.81 mg/dL 0.50-1.20 Specimen code = 2160-0) slightly hemolyzed Glucose (test code = 92 mg/dL 70-110 2345-7) Calcium (test code = 9.4 mg/dL 8.5-10.5 43430-9) AST (test code = 21 U/L 5-40 Specimen 1920-8) slightly hemolyzed ALT (test code = 27 U/L 5-50 Specimen 1742-6) slightly hemolyzed EGFR (test code = 76 mL/min/1[place] [address]-9) m NOT ACCURATE CREATININE CLEARANCE IN PREDICTING GLOMERULAR FILTRATION RATE . ESTIMATED GFR I S NOT APPLICABLE FOR DIALYSIS PATIENTS. CIRO (test code = [employer] Operator ID - CIRO) JUSTINOperator ID [...] THELMA Lab Interpretation Abnormal (test code = 21449-1) [facility] CaliforniaCOMPREHENSIVE METABOLIC [id number] 21:20:36 Test Item Value Reference Range Interpretation [...] S NOT APPLICABLE FOR DIALYSIS PATIEN TS. [employer] M[employer] Machine Operator ID - JUSTINOperator ID - [...] - JUSTINCBC with platelet count + automated [id number] 20:51:36 Test Item Value Reference Range Interpretation Comments WBC (test code = 6690-2) 12.0 See_Comment H [A utomated message] The system [employer] generated this result transmitted ref erence range: 4.0 - 10 .0 K/L. The refe rence range was not u sed to interpret this result as normal/abnor mal. RBC (test code = 789-8) 4.84 See_Comment [Au tomated message] The system [employer] generated this result transmitted ref erence range: 4.00 - 5 .00 M/L. The refe rence range was not u sed to interpret this result as normal/abnor mal. MCHC (test code = 786-4) 34.8 See_Comment [A utomated message] The system [employer] generated this result transmitted ref erence range: [...] H [Aut omated message] 777-3) The system [employer] generated this result transmitted ref erence range: 150 - 43 0 K/CU MM. The referen ce range was not u sed to interpret this result as normal/abnor mal. MPV (test code = 9.7 fL 6.0-11.5 95824-4) nRBC (test code = 413) 0 See_Comment [Aut omated message] The system [employer] generated this result transmitted ref erence range: [...] See_Comment [Aut omated message] 670) The system [employer] generated this result transmitted ref erence range: 1.80 - 8 .00 K/L. The refe rence range was not u sed to interpret this result as normal/abnor mal. # Lymphs (test code = 3.61 See_Comment [Auto mated message] 414) The system [employer] generated this result transmitted ref erence range: 1.48 - 4 .50 K/L. The refe rence range was not u sed to interpret this result as normal/abnor mal. # Monos (test code = 0.86 See_Comment [Autom ated message] 415) The system [employer] generated this result transmitted ref erence range: 0.00 - 1 .30 K/L. The refe rence range was not u sed to interpret this result as normal/abnor mal. # Eos (test code = 416) 0.41 See_Comment [Au tomated message] The system [employer] generated this result transmitted ref erence range: 0.00 - 0 .50 K/L. The refe rence range was not u sed to interpret this result as normal/abnor mal. # Baso (test code = 417) 0.10 See_Comment [A utomated message] The system [employer] generated this result transmitted ref erence range: 0.00 - 0 .20 K/L. The refe rence range was not u sed to interpret this result as normal/abnor mal. Immature 0 % 0-0 Granulocytes-Relative (test code = 2801) Lab Interpretation (test Abnormal code = 60422-1) [facility] CaliforniaCB with platelet count + automated [id number] 20:51:36 Test Item Value Reference Range Interpretation Comments WBC (test code = 6690-2) 12.0 See_Comment H [A utomated message] The system [employer] generated this result transmitted ref erence range: 4.0 - 10 .0 K/L. The refe rence range was not u sed to interpret this result as normal/abnor mal. RBC (test code = 789-8) 4.84 See_Comment [Au tomated message] The system [employer] generated this result transmitted ref erence range: 4.00 - 5 .00 M/L. The refe rence range was not u sed to interpret this result as normal/abnor mal. MCHC (test code = 786-4) 34.8 See_Comment [A utomated message] The system [employer] generated this result transmitted ref erence range: [...] H [Aut omated message] 777-3) The system [employer] generated this result transmitted ref erence range: 150 - 43 0 K/CU MM. The referen ce range was not u sed to interpret this result as normal/abnor mal. MPV (test code = 9.7 fL 6.0-11.5 17715-5) nRBC (test code = 413) 0 See_Comment [Aut omated message] The system [employer] generated this result transmitted ref erence range: [...] See_Comment [Aut omated message] 670) The system [employer] generated this result transmitted ref erence range: 1.80 - 8 .00 K/L. The refe rence range was not u sed to interpret this result as normal/abnor mal. # Lymphs (test code = 3.61 See_Comment [Auto mated message] 414) The system [employer] generated this result transmitted ref erence range: 1.48 - 4 .50 K/L. The refe rence range was not u sed to interpret this result as normal/abnor mal. # Monos (test code = 0.86 See_Comment [Autom ated message] 415) The system [employer] generated this result transmitted ref erence range: 0.00 - 1 .30 K/L. The refe rence range was not u sed to interpret this result as normal/abnor mal. # Eos (test code = 416) 0.41 See_Comment [Au tomated message] The system [employer] generated this result transmitted ref erence range: 0.00 - 0 .50 K/L. The refe rence range was not u sed to interpret this result as normal/abnor mal. # Baso (test code = 417) 0.10 See_Comment [A utomated message] The system [employer] generated this result transmitted ref erence range: 0.00 - 0 .20 K/L. The refe rence range was not u sed to interpret this result as normal/abnor mal. Immature 0 % 0-0 Granulocytes-Relative (test code = 2801) Lab Interpretation (test Abnormal code = 69065-4) [facility] W/PLT COUNT & AUTO [id number] 20:51:36 Test Item Value Reference Range Interpretation [...] (BEAKER) (test code = 2801) Continuous EEG [id number] 01:51:44CONTINUOUS VIDEO-EEG MONITORING REPORT - END OF STUDY Patient Name: Shanna BillsN#: [id number] Date of : 1975 Initial Study Start [...] seizures captured. Onelia Hair MD ICD-10 Code: R205Mamwzpsubb EEG [id number] 12:59:42 CONTINUOUS VIDEO-EEG MONITORING REPORT [facility]: [id number] Date of : 1975 Initial Study Start [...] of EEG-Video Monitoring:This electroencephalogram was recorded simultaneously withvideo throughout the monitoring. The EEG was visually inspected and analyzed for characterization ofthe background activity in all awake and sleep [...] were considered to be myogenic, biologic, mechanical, orelectrical artifact in origin. Only computer detected events that have been verified by visual inspection to be interictal or ictal epileptiform discharges are reported below and considered in the final report of this monitoring study. Findings: Background: The waking background at rest is continuous,composed of an admixture of largely alpha and [...] seizures captured. Onelia Hair MD ICD-10 Code: H345HAH 12 [id number] 05:31:10 Test Item Value Reference Range Interpretation Comments Ventricular rate (test code = 253) Atrial rate (test code = 255) SC interval (test code = 266) QRSD interval [...] rate has increased BY 62 BPM- [facility] 12 [id number] 05:31:10 Test Item Value Reference Range Interpretation Comments Ventricular rate (test code = 253) Atrial rate (test code = 255) SC interval (test code = 266) QRSD interval [...] 04:,-Vent. rate has increased BY 62 BPM- [facility] 12 [id number] 05:31:10 Test Item Value Reference Range Interpretation Comments Ventricular rate (test code = 253) Atrial rate (test code = 255) SC interval (test code = 266) QRSD interval [...] [facility] (routine) - Baseline [id number] 01:47:11VIDEO-EEG RECORDING AWAKE & ASLEEP - Baseline [...] Hair MD ICD-10 Code: R569CT Head Wo [id number] 02:53:14EXAMINATION: CT HEAD WO CONTRAST CLINICAL HISTORY: [...] No CT evidence of acute intracranial abnormality. [id number] Interface, Radiology Results Incoming - 12/03/2020 9:56 [...] IMPRESSION:1. No CT evidence of acute intracranial abnormality.[id number] [facility] RyteqsfwCRVC-CmC-3 (COVID-19) RNA [Presence] in Respiratory specimen by SOREN with probe [id number] 02:03:42 Test Item Value Reference Range Interpretation Comments SARS-CoV-2 (COVID-19) RNA Not detected Not-Detected [Presence] in Respiratory specimen by SOREN with probe detection (test code = 33106-9) Whether patient is employed in a healthcare setting (test code = 97946-3) Whether the patient has symptoms related to condition of interest (test code = 46734-2) Patient was hospitalized because of this condition (test code = 39821-5) Whether the patient was admitted to intensive care unit (ICU) for condition of interest (test code = 40412-8) Whether patient resides in a congregate care setting (test code = 19569-3) [facility] Chest 1 Vw [id number] 23:58:22EXAMINATION: XR CHEST 1 VW PORTABLE CLINICAL [...] no consolidation or effusion.3.The bones are intact.1D2RAD_P J54Llhawuaqr HospitalCRITICAL [id number] 21:55:13Bladimir Brumfield MD 12/04/2020 3:12 PMCritical CarePerformed by: Bladimir Brumfield MDAuthorized by: Bladimir Cisse MD Critical care provider statement: Critical care time (minutes): 35 Critical caretime was exclusive of: Separately billable procedures and treating other patients Critical care was necessary to treat or prevent imminent or life-threatening deterioration of the following conditions: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 Critical care was time [...] care for this patient from another provider.: [facility] ED Preliminary Interpretation - Not an [id number] 21:55:13 Bladimir Brumfield MD 12/04/2020 3:12 [facility] ED Preliminary Interpretation - Not an OrderPerformed by: Bladimir Brumfield MDAuthorized by: Bladimir Brumfield MD ECG reviewed by ED Physician in the absence of a control clerk repairs: yes Rate: ECG rate: 119Rhythm: Rhythm: sinus tachycardia Ectopy: Ectopy: none QRS: QRS axis: Normal QRS intervals: NormalConduction: Conduction: normal ST segments: ST segments: NormalT waves: T waves: normalUrine [id number] 01:10:19 Test Item Value Reference Range Interpretation Comments Urine culture (test SEE COMMENT Bacteriu mario screen code = 7244595) negative. [facility] [id number] 01:10:19 Test Item Value Reference Range Interpretation Comments Urine culture (test SEE COMMENT Bacteriu mario screen code = 2535434) negative. [facility] [id number] 01:10:19 Test Item Value Reference Range Interpretation Comments Urine culture (test SEE COMMENT Bacteriu mario screen code = 8592393) negative. [facility][U] XRAY HAND MIN 3 VWS RIGHT [id number] 15:17:00Images acquired, not reported on this accession number.[facility] Hand 3+ Vw Right 2020-11-03 04:37:16EXAMINATION: XR HAND 3 VW RIGHT INDICATION: dog bite COMPARISON: None IMPRESSION: 3 views of the right hand were obtained.No visible acute fracture or dislocation.No visible radiodense foreign material. [facility] Interface, Radiology Results Incoming - 11/02/2020 11:40 PM CDT EXAMINATION: XR HAND 3 VW RIGHTINDICATION: dog biteCOMPARISON: NoneIMPRESSION:3 views of the right hand were obtained.No visible acute fracture or dislocation.No visible radiodense foreign material.RM-MPHYMATMethTexas [facility] (routine) 2020-09-17 16:59:35Date of Study Completion: September [...] movements noted on this tracing by the dispensary technician did not have an epileptic correlate. [...] in Respiratory specimen by SOREN with probe nhrkrfdqh5651-90-16 00:31:49 Test Item Value Reference Range Interpretation Comments SARS-CoV-2 (COVID-19) RNA Not detected Not-Detected [Presence] in Respiratory specimen by SROEN with probe detection (test code = 47445-4) [facility] (routine)2020-09-11 20:16:18Date of Service: September 11ate of [...] in Respiratory specimen by SOREN with probe [id number] 07:15:55 Test Item Value Reference Range Interpretation Comments SARS-CoV-2 (COVID-19) RNA Not detected Not-Detected [Presence] in Respiratory specimen by SOREN with probe detection (test code = 10207-0) [facility] [id number] 05:45:01EXAMINATION: CT ABDOMEN PELVIS WO CONTRAST HISTORY: diarrhea abdominal pain TECHNIQUE: CT examination of the abdomen and pelvis was performed without intravenous contrast. Sagittal and coronal computerized reformatted images were generated. CT imaging was performed with iterative reconstruction techniques and/or automated exposure control to reduce radiation dose. Please note the lack of intravenouscontrast reduces sensitivity for detecting solid organ disease. [...] vasculature unremarkable. No abdominal aortic aneurysm. Bowel: Low- density thickened [...] - 09/10/2020 11:48 PM CST EXAMINATION: CT ABDOMENPELVIS WO CONTRASTHISTORY: diarrhea abdominal painTECHNIQUE: CT examination of the abdomen and pelvis was performed without intravenous contrast. Sagittal and coronal computerized reformatted images were generated. CT imaging was performed with iterative reconstruction techniques and/or automated exposure control to reduce radiation dose. Please note the lack of intravenous contrast reduces sensitivity for detecting solid organ disease.COMPARISON: 07/15/2020.FINDINGS:Lower Thorax: The lung bases are f ree of acute disease.Liver: Normal size and contour. [...] not visualized. No bowel obstruction.Lymphatic/Peritoneal: No abdominal lymphadeno stefan. Musculoskeletal: No acute or aggressive-appearing osseous lesion. IMPRESSION:1.Unchanged nonspecific slightly thickened appearance throughout the colon, a few areas of small bowel. This is nonspecific and may relate to low- level inflammation. No high grade enterocolitis. No bowel obstruction.1D2 RAD_PS02[facility] MtionahkHHFI-UqS-2 (COVID-19) RNA [Presence] in Respiratory specimen by SOREN with probe eswjntqnp6698-72-45 05:23:42 Test Item Value Reference Range Interpretation Comments SARS-CoV-2 (COVID-19) RNA Not detected Not-Detected [Presence] in Respiratory specimen by SOREN with probe detection (test code = 49855-3) [facility]ITALTransthoracic Echocardiogram Complete, (w Contrast, Strain and 3D if needed)2020-05-11 04:52:19 Test Item Value Reference Range Interpretation Comments Velocity Ratio (V1/V2) 0.85 m/s (test code = 4689) IVS,d (test code = 1.00 cm 3906392432) EF (test code = 52.31 % 0601485289) Ascending aorta (test 2.67 cm code = 0746978764) LVPWD,d (test code = 1.00 cm 2967834945) AoV Mean PG (test code mmHg = 9370766732) AV LVOT peak gradient mmHg (test code = 7500414027) MV mean gradient (test mmHg code = 7736140785) MV valve area p 1/2 3.31 cm2 method (test code = 3718886360) PV Pk Grad (test code = mmHg 6983517115) E/A ratio (test code = 0961398913) E wave decelartion time msec (test code = 8703669859) LVOT Diam,S (test code 1.98 cm = 2524905489) LVOT area (test code = 3.08 cm2 6242480204) LVOT Vmax (test code = 0.96 m/s 2928867120) LVOT VTI (test code = 0.21 m 4844539037) RVOT Vmax (test code = 0.58 m/s 2680823919) AoV Peak PG (test code mmHg = 8385482576) MV Peak E Giulinao (test 0.94 m/s code = 0005708884) MV stenosis pressure 66.39 ms 1/2 time (test code = 6031017683) MV Peak A Giuliano (test 0.74 m/s code = 2818689378) Ao Root Diameter (test 2.99 cm code = 6319349200) AoV Area, Vmax (test 2.60 cm2 code = 0366506821) AoV Area, VTI (test 2.95 cm2 code = 0108125942) AoV Vmax (test code = 1.13 m/s 7365431960) IVS/LVPW,2D (test code = 3674162888) Left Atrium Dimension 3.10 cm Anterior (test code = 0859524951) LV,d (test code = 4.15 cm 8100330899) LV,s (test code = 3.05 cm 3496332321) PV VMAX (test code = 0.78 m/s 0186284947) TR Vpeak (test code = 1.85 mm/s 2718882242) MV E A ratio (test code = 0450841817) TR pk grad (test code = mmHg 9657270349) MR peak grad (test code mmHg = 2811693729) Ao Root Diameter (test 2.99 cm code = 8988466195) LV SYS VOL (test code = 36.41 ml 5278854525) LV RIOS VOL (test code 76.34 ml = 1813191495) LV SV Teich 2D (test 39.93 ml code = 8691715314) LV Vol s Teich PSAX 36.41 ml (test code = 7854807678) MV Vmax (test code = 0.89 m 2648081791) MV VTI Tips (test code 0.22 m = 9884301111) RVOT pk grad (test code mmHg = 6359743701) AoV Vmn (test code = 4671042791) LV FS Cube 2D (test code = 7539919310) LV FS Teich 2D (test code = 8170282187) AoV VTI (test code = 0.22 m 0454514846) LA Area d A4C (test 12.41 cm2 code = 4095618358) LV EF,2D (test code = 60.32 % 9980973685) MR Vmax (test code = 4.15 m/s 5391843488) MV AE ratio (test code = 6375628070) LVOT Vmn (test code = 4867940101) Aov area Vmn (test code 2.47 cm2 = 1226278928) LA Vol d MOD A4C (test 27.63 ml code = 5082297696) LVOT mean grad (test mmHg code = 7969399065) MAX Pred HR (test code = 3629144737) 85 of MPHR (test code = 6306893539) Calc MPHR (test code = bpm 7483184706) LV SV Cube 2D (test 43.08 ml code = 7221108163) LV vol d cube 2D (test 71.42 ml code = 0268088643) LV vol s cube 2D (test 28.34 ml code = 2712966271) MV Decel slope (test 4.12 m/s2 code = 1855250305) Pred Exer Dur R1 (test code = 4184560883) Pred METS R1 (test code = 1071420966) CIRO (test code = CIRO) Left Ventricle: [...] regurgitation. No evidence of [facility] valve stenosis. [facility] upper eoddhcnzj6271-53-59 06:14:50 EXAMINATION: US DUPLEX VENOUS UPPER EXTREMITY [...] visualized veins of the right upper extremity. [facility]- [id number] Interface, Radiology Results 05/08/2020 1:17 AM CDT [...] the visualized veins of the right upper extremity.[facility]-[id number] Regional Medical Center (routine)2020-05-07 22:01:23Date of Service: [...] a diagnosis of epilepsy.MRI Brain W Wo Lfhmhyjd4638-33-20 03:27:20EXAMINATION: MRI BRAIN W WO CONTRAST CLINICAL [...] or suspicious pericallosal lesions with a perivenular morphology.1M2RAD_PS01[facility] Center[facility] (COVID-19) RNA [Presence] in Respiratory specimen by SOREN with probe [id number] 12:31:16 Test Item Value Reference Range Interpretation Comments SARS-CoV-2 (COVID-19) RNA Not detected Not-Detected [Presence] in Respiratory specimen by SOREN with probe detection (test code = 83014-1) [facility]) 2020-02-22 21:37:00 Test Item Value Reference Range Interpretation Comments SARS-COV2/RT-PCR (test code = Positive Not Detected, Negative A A 1348924) SARS-COV-2 PERFORMING LAB CPL (test code = 8966014) CT, CHEST, WITHOUT [id number] 00:54:00Reason for exam:->cough, ?covidIs the patient ?->NoWhat [...] MDReport Verified Date/Time: 02/21/2020 00:54:38 PREGNANCY SCREEN, [id number] 00:28:00 Test Item Value Reference Range Interpretation Comments TEST URINE (BEAKER) (test Negative code = 583) CBC W/PLT COUNT & AUTO [id number] 22:46:00 Test Item Value Reference Range Interpretation [...] (BEAKER) (test code = 2801) LACTIC ACID, [id number] 22:30:00 Test Item Value Reference Range Interpretation Comments LACTATE BLOOD VENOUS 1.38 mmol/L 0.50-2.00 Specime n slightly (2) (BEAKER) (test hemolyzed code = 9495) Cnc Milling Machine Operator ID - JUSTINBASIC METABOLIC [id number] 22:10:00 Test Item Value Reference Range Interpretation [...] S NOT APPLICABLE FOR DIALYSIS PATIEN TS. [employer] Milling Machine Operator ID - [id number] 22:09:00 Test Item Value Reference Range Interpretation [...] failure, acidosis, acute neurological disease, and persistent tachyarrhythmia.Cnc Milling Machine Operator ID - [id number], CHEST, 1 VIEW, NON [id number] 20:58:00Reason for exam:->coughIs the patient ?- >NoShould [...] Asencio MDReport Verified Date/Time: 02/20/2020 20:58:56 SARS-COV2/RT-PCR ([facility])2020-02-06 03:25:00 Test Item Value Reference Range Interpretation Comments SARS-COV2/RT-PCR (test code = Positive Not Detected, Negative A A 0028994) SARS-COV-2 PERFORMING LAB CPL (test code = 8187214) URINALYSIS W/ [id number] 08:24:00 Test Item Value Reference Range Interpretation [...] 1663) SOURCE(BEAKER) (test code = 2795) SCREEN, [id number] 08:00:00 Test Item Value Reference Range Interpretation Comments TEST URINE (BEAKER) (test Negative code = 583) RAD, ABDOMEN/KUB 1 VIEW [id number] 07:21:00Reason for exam:->FEVERReason for exam:->DIARRHEAReason for exam:->EMESISFINAL REPORT RAD, ABDOMEN/KUB 1 VIEW AP CLINICAL INDICATION: FEVERDIARRHEAEMESIS COMPARISON: None TECHNIQUE: Single, frontal radiograph of the abdomen. FINDINGS: The bowel gas pattern is nonspecific, but nonobstructive. IUD is present. The regional skeleton is intact. IMPRESSION: Nonspecific, nonobstructive bowel gas pattern. Signed: Ling Jin MDReport Verified Date/Time: 02/04/2020 07:21:42 Reading Location: [facility] Radiology Reading Room COMPREHENSIVE METABOLIC [id number] 07:14:00 Test Item Value Reference Range Interpretation [...] S NOT APPLICABLE FOR DIALYSIS PATIEN TS. Cnc Milling Machine Operator ID - [id number] 06:59:00 Test Item Value Reference Range Interpretation Comments LIPASE (BEAKER) (test code = 749) 9 U/L 6-51 Cnc Milling Machine Operator ID - [id number] W/PLT COUNT & AUTO [id number] 06:41:00 Test Item Value Reference Range Interpretation [...] (test code = 2801) RAPID INFLUENZA A&B [id number] 19:09:00 Test Item Value Reference Range Interpretation Comments RAPID INFLUENZA A AG (BEAKER) Negative Negative, Inconclusive (test code = 1622) RAPID INFLUENZA B AG (BEAKER) Negative Negative, Inconclusive (test code = 1623) TROPONIN [id number] 18:51:00 Test Item Value Reference Range Interpretation [...] failure, acidosis, acute neurological disease, and persistent tachyarrhythmia.Cnc Milling Machine Operator ID - JUSTINPREGNANCY SCREEN, [id number] 18:49:00 Test Item Value Reference Range Interpretation Comments TEST URINE (BEAKER) (test Negative code = 583) URINALYSIS W/ [id number] 18:49:00 Test Item Value Reference Range Interpretation [...] SOURCE(BEAKER) (test code = 2795) BASIC METABOLIC [id number] 18:44:00 Test Item Value Reference Range Interpretation [...] S NOT APPLICABLE FOR DIALYSIS PATIEN TS. Cnc Milling Machine Operator ID - GORDON, CHEST, 1 VIEW, NON [id number] 18:41:00Reason for exam:->COUGHReason for exam:->SHORTNESS OF BREATHReason [...] on10/12/2019 06:41 PMCBC W/PLT COUNT & AUTO [id number] 18:29:00 Test Item Value Reference Range Interpretation [...] PERCENT (BEAKER) (test code = 2801) CT, [id number] 16:47:00Reason for exam:->FEVERReason for exam:->LEG PAINIs the [...] MDReport Verified Date/Time: 02/15/2019 16:47:32 Reading Location: [address] Transitional Reading Room URINALYSIS W/ [id number] 15:41:00 Test Item Value Reference Range Interpretation [...] code = 1663) SOURCE(BEAKER) (test code = 9985) SCREEN, [id number] 15:29:00 Test Item Value Reference Range Interpretation Comments TEST URINE (BEAKER) (test Negative code = 583) COMPREHENSIVE METABOLIC [id number] 15:26:00 Test Item Value Reference Range Interpretation [...] S NOT APPLICABLE FOR DIALYSIS PATIEN TS. [id number] 15:26:00 Test Item Value Reference Range Interpretation Comments LIPASE (BEAKER) (test code = 749) 20 U/L 6-51 [id number] 15:17:00 Test Item Value Reference Range Interpretation Comments AMYLASE (BEAKER) (test 42 U/L 30-110 Speci men slightly code = 349) hemolyzed CBC W/PLT COUNT & AUTO [id number] 15:03:00 Test Item Value Reference Range Interpretation [...] = 2801) RAD, KNEE, COMPLETE (4 VIEWS), [id number] 23:20:00Reason for exam:->MOTOR VEHICLE CRASHReason for exam:->HIP [...] Friedmaneport Verified Date/Time: 11/19/2018 23:20:49 Reading Location: [facility] C013Y CT Body Reading Room RAD, KNEE, COMPLETE (4 VIEWS), [id number] 23:20:00Reason for exam:- >MOTOR VEHICLE CRASHReason for [...] changes in the left knee. Signed: Priti Friedmanort Verified Date/Time: 11/19/2018 23:20:49 Reading Location: [facility] B1 C013Y CT Body Reading Room RAD, HIP, 2 VIEWS, [id number] 23:06:00Reason for exam:->MOTOR VEHICLE CRASHReason for exam:->HIP PAINReason for exam:->ARM INJURYReason for exam:->SHOULDER INJURYFINAL REPORT Right hip series, 2 views Clinical Indication: Right Hip Pain Impression: No evidence of acute fracture or traumatic malalignment. Note: If occult injury is suspected,consider CT. Signed: Brian Garibay Verified Date/Time: 11/19/2018 23:06:27 Reading Location:[address] Reading Room CT, [id number] 22:44:00Reason for exam:->MOTOR VEHICLE CRASHReason for exam:->HIP [...] Alcantara Verified Date/Time: 11/19/2018 22:44:18 Reading Location: [address] Reading Room RAD, SHOULDER, COMPLETE (MIN 2 VIEWS), [id number] 22:41:00Reason for exam:->MOTOR VEHICLE CRASHReason for exam:->HIP PAINReason for exam:->ARM INJURYReason for exam:->SHOULDER INJURYFINAL REPORT Right shoulder series - 3 VIEWS Clinical Indication: Right shoulder pain following traumatic injury. Impression: No evidence of acute fracture or traumatic malalignment. Signed: Brian Garibay Verified Date/Time: 11/19/2018 22:41:16 Reading Location: [address] Reading Room URINALYSIS W/ [id number] 21:44:00 Test Item Value Reference Range Interpretation [...] 1663) SOURCE(BEAKER) (test code = 2795) SCREEN, [id number] 21:40:00 Test Item Value Reference Range Interpretation Comments TEST URINE (BEAKER) (test Negative code = 583) URINALYSIS W/ [id number] 21:41:00 Test Item Value Reference Range Interpretation [...] 1663) SOURCE(BEAKER) (test code = 2795) SCREEN, [id number] 21:37:00 Test Item Value Reference Range Interpretation Comments TEST URINE (BEAKER) (test Negative code = 583) RAPID INFLUENZA A&B [id number] 20:49:00 Test Item Value Reference Range Interpretation Comments RAPID INFLUENZA A AG (BEAKER) Negative Negative, Inconclusive (test code = 1622) RAPID INFLUENZA B AG (BEAKER) Negative Negative, Inconclusive (test code = 1623) CT, [id number] 08:31:00Reason for exam:->ABDOMINAL PAINReason for exam:->FEVERReason for [...] Barkerort Verified Date/Time: 07/31/2017 08:31:14 Reading Location: [facility] Diagnostic Imaging Reading Room - [place] [address] RAD, CHEST, 1 VIEW, NON [id number] 08:23:00Reason for exam:->ABDOMINAL PAINReason for exam:->FEVERReason for [...] Arellano Verified Date/Time: 07/31/2017 08:23:48 Reading Location: [address] Radiology Reading Room [id number] 08:07:00 Test Item Value Reference Range Interpretation Comments LIPASE (BEAKER) (test code = 749) 34 U/L 6-51 URINALYSIS W/ REFLEX URINE [id number] 08:06:00 Test Item Value Reference Range Interpretation [...] SOURCE(BEAKER) (test code = 2795) COMPREHENSIVE METABOLIC [id number] 08:06:00 Test Item Value Reference Range Interpretation [...] S NOT APPLICABLE FOR DIALYSIS PATIEN TS. [id number] 07:58:00 Test Item Value Reference Range Interpretation Comments AMYLASE (BEAKER) (test code = 349) 52 U/L 30-110 SCREEN, [id number] 07:52:00 Test Item Value Reference Range Interpretation Comments TEST URINE (BEAKER) (test Negative code = 583) CBC W/PLT COUNT & AUTO [id number] 07:48:00 Test Item Value Reference Range Interpretation [...] 0.00-0.20 (test code = 417) BASIC METABOLIC [id number] 21:32:00 Test Item Value Reference Range Interpretation [...] DIALYSIS PATIEN TS. LACTIC ACID, VENOUS, WHOLE [id number] 21:19:00 Test Item Value Reference Range Interpretation Comments LACTATE BLOOD VENOUS 0.9 mmol/L 0.5-2.2 Specime n slightly (2) (BEAKER) (test hemolyzed code = 2872) Effective 12/15/2015: Units/Reference Range ChangeNew: 0.5-2.2 mmol/L Previous: 5- 18 mg/dLCBC W/PLT COUNT & AUTO [id number] 21:07:00 Test Item Value Reference Range Interpretation [...] L 0.00-0.20 (test code = 417) SCREEN, [id number] 18:50:00 Test Item Value Reference Range Interpretation Comments TEST URINE (BEAKER) (test Negative code = 583) URINE [id number] 09:20:00 Test Item Value Reference Range Interpretation [...] = 480) CBC W/PLT COUNT & AUTO [id number] 16:52:00 Test Item Value Reference Range Interpretation [...] 0.00-0.20 (test code = 417) COMPREHENSIVE METABOLIC [id number] 16:28:00 Test Item Value Reference Range Interpretation [...] S NOT APPLICABLE FOR DIALYSIS PATIEN TS. [id number] 16:22:00 Test Item Value Reference Range Interpretation Comments LIPASE (BEAKER) (test code = 749) 26 U/L 6-51 URINALYSIS W/ REFLEX URINE [id number] 15:52:00 Test Item Value Reference Range Interpretation [...] 1663) SOURCE(BEAKER) (test code = 2795) SCREEN, [id number] 15:49:00 Test Item Value Reference Range Interpretation Comments TEST URINE (BEAKER) (test Negative code = 583) URINE AND [id number] 08:40:00 Test Item Value Reference Range Interpretation Comments UA Leuk Est (test code Trace *ABN*(02/13/16 3:40 = UA Leuk Est) AM) [facility] AND [id number] 08:40:00 Test Item Value Reference Range Interpretation Comments UA Nitrite (test code Negative (02/13/16 3:40 = UA Nitrite) AM) [facility] AND [id number] 08:40:00 Test Item Value Reference Range Interpretation Comments UA Urobilinogen (test code = UA 0.2 0.1-1.0 Urobilinogen) [facility] AND [id number] 08:40:00 Test Item Value Reference Range Interpretation Comments UA Ketones (test code Negative *NA*(02/13/16 = UA Ketones) 3:40 AM) [facility] AND [id number] 08:40:00 Test Item Value Reference Range Interpretation Comments UA Glucose (test code Negative (02/13/16 3:40 = UA Glucose) AM) [facility] AND [id number] 08:40:00 Test Item Value Reference Range Interpretation Comments UA Blood (test code = Large *ABN*(02/13/16 UA Blood) 3:40 AM) [facility] AND [id number] 08:40:00 Test Item Value Reference Range Interpretation Comments UA Bili (test code = Negative *NA*(02/13/16 UA Bili) 3:40 AM) [facility] AND [id number] 08:40:00 Test Item Value Reference Range Interpretation Comments UA Protein (test code = UA Protein) 30 mg/dL [facility] AND [id number] 08:40:00 Test Item Value Reference Range Interpretation Comments UA Spec Grav (test code = UA Spec 1.015 1 Grav) [facility] AND [id number] 08:40:00 Test Item Value Reference Range Interpretation Comments UA pH (test code = UA pH) 7.0 1 5.0-8.0 [facility] AND [id number] 08:40:00 Test Item Value Reference Range Interpretation Comments UA Color (test code = Red *ABN*(02/13/16 3:40 UA Color) AM) [facility] AND [id number] 08:40:00 Test Item Value Reference Range Interpretation Comments UA Turbidity (test code Bloody *ABN*(02/13/16 = UA Turbidity) 3:40 AM) [facility] AND [id number] 08:40:00 Test Item Value Reference Range Interpretation Comments UA Bacteria (test code = UA Occasional /HPF Bacteria) [facility] AND [id number] 08:40:00 Test Item Value Reference Range Interpretation Comments UA RBC (test Packed See_Comment [Automated mes shirley] code = UA RBC) *ABN*(02/13/16 3:40 The syst em which AM) generated this result transmitted ref erence range: <=2. The reference range was not used to int erpret this result as normal/abnormal . [facility] AND [id number] 08:40:00 Test Item Value Reference Range Interpretation Comments UA WBC (test code = UA WBC) 3-5 /HPF [facility] AND [id number] 08:40:00 Test Item Value Reference Range Interpretation Comments UA Sq Epi (test code = UA Sq Epi) Rare /LPF [facility] [id number] 08:40:00 Test Item Value Reference Range Interpretation Comments UA Leuk Est (test code Trace *ABN*(02/13/16 3:40 = UA Leuk Est) AM) [facility] AND [id number] 08:40:00 Test Item Value Reference Range Interpretation Comments UA Nitrite (test code Negative (02/13/16 3:40 = UA Nitrite) AM) [facility] [id number] 08:40:00 Test Item Value Reference Range Interpretation Comments UA Urobilinogen (test code = UA 0.2 0.1-1.0 Urobilinogen) [facility] [id number] 08:40:00 Test Item Value Reference Range Interpretation Comments UA Ketones (test code Negative *NA*(02/13/16 = UA Ketones) 3:40 AM) [facility] [id number] 08:40:00 Test Item Value Reference Range Interpretation Comments UA Glucose (test code Negative (02/13/16 3:40 = UA Glucose) AM) [facility] [id number] 08:40:00 Test Item Value Reference Range Interpretation Comments UA Blood (test code = Large *ABN*(02/13/16 UA Blood) 3:40 AM) [facility] [id number] 08:40:00 Test Item Value Reference Range Interpretation Comments UA Bili (test code = Negative *NA*(02/13/16 UA Bili) 3:40 AM) [facility] [id number] 08:40:00 Test Item Value Reference Range Interpretation Comments UA Protein (test code = UA Protein) 30 mg/dL [facility] AND [id number] 08:40:00 Test Item Value Reference Range Interpretation Comments UA Spec Grav (test code = UA Spec 1.015 1 Grav) [facility] AND [id number] 08:40:00 Test Item Value Reference Range Interpretation Comments UA pH (test code = UA pH) 7.0 1 5.0-8.0 [facility] [id number] 08:40:00 Test Item Value Reference Range Interpretation Comments UA Color (test code = Red *ABN*(02/13/16 3:40 UA Color) AM) [facility] [id number] 08:40:00 Test Item Value Reference Range Interpretation Comments UA Turbidity (test code Bloody *ABN*(02/13/16 = UA Turbidity) 3:40 AM) [facility] AND [id number] 08:40:00 Test Item Value Reference Range Interpretation Comments UA Bacteria (test code = UA Occasional /HPF Bacteria) [facility] [id number] 08:40:00 Test Item Value Reference Range Interpretation Comments UA RBC (test Packed See_Comment [Automated mes shirley] code = UA RBC) *ABN*(02/13/16 3:40 The syst em which AM) generated this result transmitted ref erence range: <=2. The reference range was not used to int erpret this result as normal/abnormal . [facility] [id number] 08:40:00 Test Item Value Reference Range Interpretation Comments UA WBC (test code = UA WBC) 3-5 /HPF [facility] AND [id number] 08:40:00 Test Item Value Reference Range Interpretation Comments UA Sq Epi (test code = UA Sq Epi) Rare /LPF [facility] [id number] 08:40:00 Test Item Value Reference Range Interpretation Comments UA Leuk Est (test code Trace *ABN*(02/13/16 3:40 = UA Leuk Est) AM) [facility] [id number] 08:40:00 Test Item Value Reference Range Interpretation Comments UA Nitrite (test code Negative (02/13/16 3:40 = UA Nitrite) AM) [facility] [id number] 08:40:00 Test Item Value Reference Range Interpretation Comments UA Urobilinogen (test code = UA 0.2 0.1-1.0 Urobilinogen) [facility] [id number] 08:40:00 Test Item Value Reference Range Interpretation Comments UA Ketones (test code Negative *NA*(02/13/16 = UA Ketones) 3:40 AM) [facility] [id number] 08:40:00 Test Item Value Reference Range Interpretation Comments UA Glucose (test code Negative (02/13/16 3:40 = UA Glucose) AM) [facility] [id number] 08:40:00 Test Item Value Reference Range Interpretation Comments UA Blood (test code = Large *ABN*(02/13/16 UA Blood) 3:40 AM) [facility] [id number] 08:40:00 Test Item Value Reference Range Interpretation Comments UA Bili (test code = Negative *NA*(02/13/16 UA Bili) 3:40 AM) [facility] [id number] 08:40:00 Test Item Value Reference Range Interpretation Comments UA Protein (test code = UA Protein) 30 mg/dL [facility] [id number] 08:40:00 Test Item Value Reference Range Interpretation Comments UA Spec Grav (test code = UA Spec 1.015 1 Grav) [facility] [id number] 08:40:00 Test Item Value Reference Range Interpretation Comments UA pH (test code = UA pH) 7.0 1 5.0-8.0 [facility] [id number] 08:40:00 Test Item Value Reference Range Interpretation Comments UA Color (test code = Red *ABN*(02/13/16 3:40 UA Color) AM) [facility] [id number] 08:40:00 Test Item Value Reference Range Interpretation Comments UA Turbidity (test code Bloody *ABN*(02/13/16 = UA Turbidity) 3:40 AM) [facility] [id number] 08:40:00 Test Item Value Reference Range Interpretation Comments UA Bacteria (test code = UA Occasional /HPF Bacteria) [facility] [id number] 08:40:00 Test Item Value Reference Range Interpretation Comments UA RBC (test Packed See_Comment [Automated mes shirley] code = UA RBC) *ABN*(02/13/16 3:40 The syst em which AM) generated this result transmitted ref erence range: <=2. The reference range was not used to int erpret this result as normal/abnormal . [facility] [id number] 08:40:00 Test Item Value Reference Range Interpretation Comments UA WBC (test code = UA WBC) 3-5 /HPF [facility] [id number] 08:40:00 Test Item Value Reference Range Interpretation Comments UA Sq Epi (test code = UA Sq Epi) Rare /LPF [facility] [id number] 08:40:00 Test Item Value Reference Range Interpretation Comments UA Leuk Est (test code Trace *ABN*(02/13/16 3:40 = UA Leuk Est) AM) [facility] [id number] 08:40:00 Test Item Value Reference Range Interpretation Comments UA Nitrite (test code Negative (02/13/16 3:40 = UA Nitrite) AM) [facility] [id number] 08:40:00 Test Item Value Reference Range Interpretation Comments UA Urobilinogen (test code = UA 0.2 0.1-1.0 Urobilinogen) [facility] [id number] 08:40:00 Test Item Value Reference Range Interpretation Comments UA Ketones (test code Negative *NA*(02/13/16 = UA Ketones) 3:40 AM) [facility] [id number] 08:40:00 Test Item Value Reference Range Interpretation Comments UA Glucose (test code Negative (02/13/16 3:40 = UA Glucose) AM) [facility] [id number] 08:40:00 Test Item Value Reference Range Interpretation Comments UA Blood (test code = Large *ABN*(02/13/16 UA Blood) 3:40 AM) [facility] [id number] 08:40:00 Test Item Value Reference Range Interpretation Comments UA Bili (test code = Negative *NA*(02/13/16 UA Bili) 3:40 AM) [facility] [id number] 08:40:00 Test Item Value Reference Range Interpretation Comments UA Protein (test code = UA Protein) 30 mg/dL [facility] [id number] 08:40:00 Test Item Value Reference Range Interpretation Comments UA Spec Grav (test code = UA Spec 1.015 1 Grav) [facility] [id number] 08:40:00 Test Item Value Reference Range Interpretation Comments UA pH (test code = UA pH) 7.0 1 5.0-8.0 [facility] [id number] 08:40:00 Test Item Value Reference Range Interpretation Comments UA Color (test code = Red *ABN*(02/13/16 3:40 UA Color) AM) [facility] [id number] 08:40:00 Test Item Value Reference Range Interpretation Comments UA Turbidity (test code Bloody *ABN*(02/13/16 = UA Turbidity) 3:40 AM) [facility] [id number] 08:40:00 Test Item Value Reference Range Interpretation Comments UA Bacteria (test code = UA Occasional /HPF Bacteria) [facility] [id number] 08:40:00 Test Item Value Reference Range Interpretation Comments UA RBC (test Packed See_Comment [Automated mes shirley] code = UA RBC) *ABN*(02/13/16 3:40 The syst em which AM) generated this result transmitted ref erence range: <=2. The reference range was not used to int erpret this result as normal/abnormal . [facility] [id number] 08:40:00 Test Item Value Reference Range Interpretation Comments UA WBC (test code = UA WBC) 3-5 /HPF [facility] [id number] 08:40:00 Test Item Value Reference Range Interpretation Comments UA Sq Epi (test code = UA Sq Epi) Rare /LPF [facility] [id number] 08:40:00 Test Item Value Reference Range Interpretation Comments UA Leuk Est (test code Trace *ABN*(02/13/16 3:40 = UA Leuk Est) AM) [facility] [id number] 08:40:00 Test Item Value Reference Range Interpretation Comments UA Nitrite (test code Negative (02/13/16 3:40 = UA Nitrite) AM) [facility] [id number] 08:40:00 Test Item Value Reference Range Interpretation Comments UA Urobilinogen (test code = UA 0.2 0.1-1.0 Urobilinogen) [facility] [id number] 08:40:00 Test Item Value Reference Range Interpretation Comments UA Ketones (test code Negative *NA*(02/13/16 = UA Ketones) 3:40 AM) [facility] [id number] 08:40:00 Test Item Value Reference Range Interpretation Comments UA Glucose (test code Negative (02/13/16 3:40 = UA Glucose) AM) [facility] [id number] 08:40:00 Test Item Value Reference Range Interpretation Comments UA Blood (test code = Large *ABN*(02/13/16 UA Blood) 3:40 AM) [facility] [id number] 08:40:00 Test Item Value Reference Range Interpretation Comments UA Bili (test code = Negative *NA*(02/13/16 UA Bili) 3:40 AM) [facility] [id number] 08:40:00 Test Item Value Reference Range Interpretation Comments UA Protein (test code = UA Protein) 30 mg/dL [facility] AND [id number] 08:40:00 Test Item Value Reference Range Interpretation Comments UA Spec Grav (test code = UA Spec 1.015 1 Grav) [facility] [id number] 08:40:00 Test Item Value Reference Range Interpretation Comments UA pH (test code = UA pH) 7.0 1 5.0-8.0 [facility] [id number] 08:40:00 Test Item Value Reference Range Interpretation Comments UA Color (test code = Red *ABN*(02/13/16 3:40 UA Color) AM) [facility] [id number] 08:40:00 Test Item Value Reference Range Interpretation Comments UA Turbidity (test code Bloody *ABN*(02/13/16 = UA Turbidity) 3:40 AM) [facility] [id number] 08:40:00 Test Item Value Reference Range Interpretation Comments UA Bacteria (test code = UA Occasional /HPF Bacteria) [facility] [id number] 08:40:00 Test Item Value Reference Range Interpretation Comments UA RBC (test Packed See_Comment [Automated mes shirley] code = UA RBC) *ABN*(02/13/16 3:40 The syst em which AM) generated this result transmitted ref erence range: <=2. The reference range was not used to int erpret this result as normal/abnormal . [facility] [id number] 08:40:00 Test Item Value Reference Range Interpretation Comments UA WBC (test code = UA WBC) 3-5 /HPF [facility] AND [id number] 08:40:00 Test Item Value Reference Range Interpretation Comments UA Sq Epi (test code = UA Sq Epi) Rare /LPF [facility] [id number] 08:40:00 Test Item Value Reference Range Interpretation Comments UA Leuk Est (test code Trace *ABN*(02/13/16 3:40 = UA Leuk Est) AM) [facility] [id number] 08:40:00 Test Item Value Reference Range Interpretation Comments UA Nitrite (test code Negative (02/13/16 3:40 = UA Nitrite) AM) [facility] [id number] 08:40:00 Test Item Value Reference Range Interpretation Comments UA Urobilinogen (test code = UA 0.2 0.1-1.0 Urobilinogen) [facility] [id number] 08:40:00 Test Item Value Reference Range Interpretation Comments UA Ketones (test code Negative *NA*(7/3/16 = UA Ketones) 3:40 AM) [facility] [id number] 08:40:00 Test Item Value Reference Range Interpretation Comments UA Glucose (test code Negative (02/13/16 3:40 = UA Glucose) AM) [facility] [id number] 08:40:00 Test Item Value Reference Range Interpretation Comments UA Blood (test code = Large *ABN*(02/13/16 UA Blood) 3:40 AM) [facility] [id number] 08:40:00 Test Item Value Reference Range Interpretation Comments UA Bili (test code = Negative *NA*(02/13/16 UA Bili) 3:40 AM) [facility] [id number] 08:40:00 Test Item Value Reference Range Interpretation Comments UA Protein (test code = UA Protein) 30 mg/dL [facility] AND [id number] 08:40:00 Test Item Value Reference Range Interpretation Comments UA Spec Grav (test code = UA Spec 1.015 1 Grav) [facility] [id number] 08:40:00 Test Item Value Reference Range Interpretation Comments UA pH (test code = UA pH) 7.0 1 5.0-8.0 [facility] [id number] 08:40:00 Test Item Value Reference Range Interpretation Comments UA Color (test code = Red *ABN*(02/13/16 3:40 UA Color) AM) [facility] [id number] 08:40:00 Test Item Value Reference Range Interpretation Comments UA Turbidity (test code Bloody *ABN*(02/13/16 = UA Turbidity) 3:40 AM) [facility] [id number] 08:40:00 Test Item Value Reference Range Interpretation Comments UA Bacteria (test code = UA Occasional /HPF Bacteria) [facility] [id number] 08:40:00 Test Item Value Reference Range Interpretation Comments UA RBC (test Packed See_Comment [Automated mes shirley] code = UA RBC) *ABN*(02/13/16 3:40 The syst em which AM) generated this result transmitted ref erence range: <=2. The reference range was not used to int erpret this result as normal/abnormal . [facility] [id number] 08:40:00 Test Item Value Reference Range Interpretation Comments UA WBC (test code = UA WBC) 3-5 /HPF [facility] [id number] 08:40:00 Test Item Value Reference Range Interpretation Comments UA Sq Epi (test code = UA Sq Epi) Rare /LPF [facility] AND [id number] 08:40:00 Test Item Value Reference Range Interpretation Comments UA Leuk Est (test code Trace *ABN*(02/13/16 3:40 = UA Leuk Est) AM) [facility] [id number] 08:40:00 Test Item Value Reference Range Interpretation Comments UA Nitrite (test code Negative (02/13/16 3:40 = UA Nitrite) AM) [facility] [id number] 08:40:00 Test Item Value Reference Range Interpretation Comments UA Urobilinogen (test code = UA 0.2 0.1-1.0 Urobilinogen) [facility] [id number] 08:40:00 Test Item Value Reference Range Interpretation Comments UA Ketones (test code Negative *NA*(02/13/16 = UA Ketones) 3:40 AM) [facility] [id number] 08:40:00 Test Item Value Reference Range Interpretation Comments UA Glucose (test code Negative (02/13/16 3:40 = UA Glucose) AM) [facility] [id number] 08:40:00 Test Item Value Reference Range Interpretation Comments UA Blood (test code = Large *ABN*(02/13/16 UA Blood) 3:40 AM) [facility] [id number] 08:40:00 Test Item Value Reference Range Interpretation Comments UA Bili (test code = Negative *NA*(02/13/16 UA Bili) 3:40 AM) [facility] [id number] 08:40:00 Test Item Value Reference Range Interpretation Comments UA Protein (test code = UA Protein) 30 mg/dL [facility] AND [id number] 08:40:00 Test Item Value Reference Range Interpretation Comments UA Spec Grav (test code = UA Spec 1.015 1 Grav) [facility] [id number] 08:40:00 Test Item Value Reference Range Interpretation Comments UA pH (test code = UA pH) 7.0 1 5.0-8.0 [facility] [id number] 08:40:00 Test Item Value Reference Range Interpretation Comments UA Color (test code = Red *ABN*(02/13/16 3:40 UA Color) AM) [facility] [id number] 08:40:00 Test Item Value Reference Range Interpretation Comments UA Turbidity (test code Bloody *ABN*(02/13/16 = UA Turbidity) 3:40 AM) [facility] [id number] 08:40:00 Test Item Value Reference Range Interpretation Comments UA Bacteria (test code = UA Occasional /HPF Bacteria) [facility] [id number] 08:40:00 Test Item Value Reference Range Interpretation Comments UA RBC (test Packed See_Comment [Automated mes shirley] code = UA RBC) *ABN*(02/13/16 3:40 The syst em which AM) generated this result transmitted ref erence range: <=2. The reference range was not used to int erpret this result as normal/abnormal . [facility] [id number] 08:40:00 Test Item Value Reference Range Interpretation Comments UA WBC (test code = UA WBC) 3-5 /HPF [facility] [id number] 08:40:00 Test Item Value Reference Range Interpretation Comments UA Sq Epi (test code = UA Sq Epi) Rare /LPF [facility] AND [id number] 08:40:00 Test Item Value Reference Range Interpretation Comments UA Leuk Est (test code Trace *ABN*(02/13/16 3:40 = UA Leuk Est) AM) [facility] [id number] 08:40:00 Test Item Value Reference Range Interpretation Comments UA Nitrite (test code Negative (02/13/16 3:40 = UA Nitrite) AM) [facility] [id number] 08:40:00 Test Item Value Reference Range Interpretation Comments UA Urobilinogen (test code = UA 0.2 0.1-1.0 Urobilinogen) [facility] [id number] 08:40:00 Test Item Value Reference Range Interpretation Comments UA Ketones (test code Negative *NA*(02/13/16 = UA Ketones) 3:40 AM) [facility] [id number] 08:40:00 Test Item Value Reference Range Interpretation Comments UA Glucose (test code Negative (02/13/16 3:40 = UA Glucose) AM) [facility] [id number] 08:40:00 Test Item Value Reference Range Interpretation Comments UA Blood (test code = Large *ABN*(02/13/16 UA Blood) 3:40 AM) [facility] [id number] 08:40:00 Test Item Value Reference Range Interpretation Comments UA Bili (test code = Negative *NA*(02/13/16 UA Bili) 3:40 AM) [facility] [id number] 08:40:00 Test Item Value Reference Range Interpretation Comments UA Protein (test code = UA Protein) 30 mg/dL [facility] AND [id number] 08:40:00 Test Item Value Reference Range Interpretation Comments UA Spec Grav (test code = UA Spec 1.015 1 Grav) [facility] [id number] 08:40:00 Test Item Value Reference Range Interpretation Comments UA pH (test code = UA pH) 7.0 1 5.0-8.0 [facility] [id number] 08:40:00 Test Item Value Reference Range Interpretation Comments UA Color (test code = Red *ABN*(02/13/16 3:40 UA Color) AM) [facility] [id number] 08:40:00 Test Item Value Reference Range Interpretation Comments UA Turbidity (test code Bloody *ABN*(02/13/16 = UA Turbidity) 3:40 AM) [facility] [id number] 08:40:00 Test Item Value Reference Range Interpretation Comments UA Bacteria (test code = UA Occasional /HPF Bacteria) [facility] [id number] 08:40:00 Test Item Value Reference Range Interpretation Comments UA RBC (test Packed See_Comment [Automated mes shirley] code = UA RBC) *ABN*(02/13/16 3:40 The syst em which AM) generated this result transmitted ref erence range: <=2. The reference range was not used to int erpret this result as normal/abnormal . [facility] [id number] 08:40:00 Test Item Value Reference Range Interpretation Comments UA WBC (test code = UA WBC) 3-5 /HPF [facility] [id number] 08:40:00 Test Item Value Reference Range Interpretation Comments UA Sq Epi (test code = UA Sq Epi) Rare /LPF [facility] [id number] 08:40:00 Test Item Value Reference Range Interpretation Comments UA Leuk Est (test code Trace *ABN*(02/13/16 3:40 = UA Leuk Est) AM) [facility] [id number] 08:40:00 Test Item Value Reference Range Interpretation Comments UA Nitrite (test code Negative (02/13/16 3:40 = UA Nitrite) AM) [facility] [id number] 08:40:00 Test Item Value Reference Range Interpretation Comments UA Urobilinogen (test code = UA 0.2 0.1-1.0 Urobilinogen) [facility] [id number] 08:40:00 Test Item Value Reference Range Interpretation Comments UA Ketones (test code Negative *NA*(02/13/16 = UA Ketones) 3:40 AM) [facility] [id number] 08:40:00 Test Item Value Reference Range Interpretation Comments UA Glucose (test code Negative (02/13/16 3:40 = UA Glucose) AM) [facility] [id number] 08:40:00 Test Item Value Reference Range Interpretation Comments UA Blood (test code = Large *ABN*(02/13/16 UA Blood) 3:40 AM) [facility] [id number] 08:40:00 Test Item Value Reference Range Interpretation Comments UA Bili (test code = Negative *NA*(02/13/16 UA Bili) 3:40 AM) [facility] [id number] 08:40:00 Test Item Value Reference Range Interpretation Comments UA Protein (test code = UA Protein) 30 mg/dL [facility] [id number] 08:40:00 Test Item Value Reference Range Interpretation Comments UA Spec Grav (test code = UA Spec 1.015 1 Grav) [facility] [id number] 08:40:00 Test Item Value Reference Range Interpretation Comments UA pH (test code = UA pH) 7.0 1 5.0-8.0 [facility] [id number] 08:40:00 Test Item Value Reference Range Interpretation Comments UA Color (test code = Red *ABN*(02/13/16 3:40 UA Color) AM) [facility] [id number] 08:40:00 Test Item Value Reference Range Interpretation Comments UA Turbidity (test code Bloody *ABN*(02/13/16 = UA Turbidity) 3:40 AM) [facility] [id number] 08:40:00 Test Item Value Reference Range Interpretation Comments UA Bacteria (test code = UA Occasional /HPF Bacteria) [facility] [id number] 08:40:00 Test Item Value Reference Range Interpretation Comments UA RBC (test Packed See_Comment [Automated mes shirley] code = UA RBC) *ABN*(02/13/16 3:40 The syst em which AM) generated this result transmitted ref erence range: <=2. The reference range was not used to int erpret this result as normal/abnormal . [facility] [id number] 08:40:00 Test Item Value Reference Range Interpretation Comments UA WBC (test code = UA WBC) 3-5 /HPF [facility] [id number] 08:40:00 Test Item Value Reference Range Interpretation Comments UA Sq Epi (test code = UA Sq Epi) Rare /LPF [facility] [id number] 08:40:00 Test Item Value Reference Range Interpretation Comments UA Leuk Est (test code Trace *ABN*(02/13/16 3:40 = UA Leuk Est) AM) [facility] [id number] 08:40:00 Test Item Value Reference Range Interpretation Comments UA Nitrite (test code Negative (02/13/16 3:40 = UA Nitrite) AM) [facility] [id number] 08:40:00 Test Item Value Reference Range Interpretation Comments UA Urobilinogen (test code = UA 0.2 0.1-1.0 Urobilinogen) [facility] [id number] 08:40:00 Test Item Value Reference Range Interpretation Comments UA Ketones (test code Negative *NA*(02/13/16 = UA Ketones) 3:40 AM) [facility] [id number] 08:40:00 Test Item Value Reference Range Interpretation Comments UA Glucose (test code Negative (02/13/16 3:40 = UA Glucose) AM) [facility] [id number] 08:40:00 Test Item Value Reference Range Interpretation Comments UA Blood (test code = Large *ABN*(02/13/16 UA Blood) 3:40 AM) [facility] [id number] 08:40:00 Test Item Value Reference Range Interpretation Comments UA Bili (test code = Negative *NA*(02/13/16 UA Bili) 3:40 AM) [facility] [id number] 08:40:00 Test Item Value Reference Range Interpretation Comments UA Protein (test code = UA Protein) 30 mg/dL [facility] [id number] 08:40:00 Test Item Value Reference Range Interpretation Comments UA Spec Grav (test code = UA Spec 1.015 1 Grav) [facility] [id number] 08:40:00 Test Item Value Reference Range Interpretation Comments UA pH (test code = UA pH) 7.0 1 5.0-8.0 [facility] [id number] 08:40:00 Test Item Value Reference Range Interpretation Comments UA Color (test code = Red *ABN*(02/13/16 3:40 UA Color) AM) [facility] [id number] 08:40:00 Test Item Value Reference Range Interpretation Comments UA Turbidity (test code Bloody *ABN*(02/13/16 = UA Turbidity) 3:40 AM) [facility] [id number] 08:40:00 Test Item Value Reference Range Interpretation Comments UA Bacteria (test code = UA Occasional /HPF Bacteria) [facility] AND [id number] 08:40:00 Test Item Value Reference Range Interpretation Comments UA RBC (test Packed See_Comment [Automated mes shirley] code = UA RBC) *ABN*(02/13/16 3:40 The syst em which AM) generated this result transmitted ref erence range: <=2. The reference range was not used to int erpret this result as normal/abnormal . [facility] [id number] 08:40:00 Test Item Value Reference Range Interpretation Comments UA WBC (test code = UA WBC) 3-5 /HPF [facility] [id number] 08:40:00 Test Item Value Reference Range Interpretation Comments UA Sq Epi (test code = UA Sq Epi) Rare /LPF [employer] [facility] [id number] 06:44:00 Test Item Value Reference Range Interpretation Comments Antibody Scrn (test Negative (02/13/16 1:44 code = Antibody Scrn) AM) [employer] [id number] 06:44:00 Test Item Value Reference Range Interpretation Comments ABO/Rh (test code = ABO/Rh) A POS [facility] [id number] 06:44:00 Test Item Value Reference Range Interpretation Comments CK MB Index (test 1.6 See_Comment [Automate d message] The code = CK MB Index) [facility] generated this result transmit gaye reference range : <=2.5. The reference range was not used to interpr et this result as satish l/abnormal. Carbonated Content [id number] 06:44:00 Test Item Value Reference Range Interpretation Comments CK MB (test code = CK MB) 0.9 0.5-3.6 [facility] [id number] 06:44:00 Test Item Value Reference Range Interpretation Comments Total CK (test code = Total CK) 57 12-191 [facility] [id number] 06:44:00 Test Item Value Reference Range Interpretation Comments Troponin-I (test code no gt See_Comment [Auto mated message] The = Troponin-I) system which g enerated this result transmit gaye reference range : <=0.40. The reference r ozzy was not used to interpr et this result as satish l/abnormal. [employer] [id number] 06:44:00 Test Item Value Reference Range Interpretation Comments Albumin Lvl (test code = Albumin Lvl) 3.5 3.5-5.0 [employer] [id number] 06:44:00 Test Item Value Reference Range Interpretation Comments Total Protein (test code = Total 7.0 6.4-8.4 Protein) [place] [id number] 06:44:00 Test Item Value Reference Range Interpretation Comments ALT (test code = ALT) 19 See_Comment [Auto mated message] The system which ge nerated this result transmit gaye reference range : <=65. The reference range was not used to interpr et this result as satish l/abnormal. [facility]2016-07-03 06:44:00 Test Item Value Reference Range Interpretation Comments AST (test code = AST) 10 See_Comment [Auto mated message] The system which ge nerated this result transmit gaye reference range : <=37. The reference range was not used to interpr et this result as satish l/abnormal. [facility]2016-07-03 06:44:00 Test Item Value Reference Range Interpretation Comments Alk Phos (test code = Alk Phos) 79 39-136 [facility]2016-07-03 06:44:00 Test Item Value Reference Range Interpretation Comments Bili Total (test code = Bili Total) 0.4 0.2-1.3 [place] [id number] 06:44:00 Test Item Value Reference Range Interpretation Comments Bili Direct (test code 0.1 See_Comment [Aut omated message] The = Bili Direct) system which generated this result tra nsmitted reference range : <=0.3. The reference r ozzy was not used to int erpret this result as satish l/abnormal. [facility]2016-07-03 06:44:00 Test Item Value Reference Range Interpretation Comments Globulin (test code = Globulin) 3.5 2.0-4.0 [place] 779426-07-03 06:44:00 Test Item Value Reference Range Interpretation Comments A/G Ratio (test code = A/G Ratio) 1.0 0.7-1.6 [place] 779426-07-03 06:44:00 Test Item Value Reference Range Interpretation Comments Bili Indirect (test 0.3 See_Comment [Automa gaye message] The code = Bili Indirect) system which generated this result tra nsmitted reference range : <=1.0. The reference r ozzy was not used to int erpret this result as normal/abnormal . [facility]2016-07-03 06:44:00 Test Item Value Reference Range Interpretation Comments eGFR (test code = eGFR) 107 [facility]2016-07-03 06:44:00 Test Item Value Reference Range Interpretation Comments BUN (test code = BUN) 8 7-22 [facility]2016-07-03 06:44:00 Test Item Value Reference Range Interpretation Comments Glucose Lvl (test code = Glucose Lvl) 91 70-99 [facility]2016-07-03 06:44:00 Test Item Value Reference Range Interpretation Comments Sodium Lvl (test code = Sodium Lvl) 138 135-145 [facility]2016-07-03 06:44:00 Test Item Value Reference Range Interpretation Comments Creatinine Lvl (test code = Creatinine 0.70 0.50-1.40 Lvl) [facility]2016-07-03 06:44:00 Test Item Value Reference Range Interpretation Comments Potassium Lvl (test code = Potassium 3.3 3.5-5.1 Lvl) [facility]2016-07-03 06:44:00 Test Item Value Reference Range Interpretation Comments CO2 (test code = CO2) 25 24-32 [facility]2016-07-03 06:44:00 Test Item Value Reference Range Interpretation Comments Chloride Lvl (test code = Chloride Lvl) 106 95-109 [facility]2016-07-03 06:44:00 Test Item Value Reference Range Interpretation Comments Calcium Lvl (test code = Calcium Lvl) 8.1 8.5-10.5 [facility]2016-07-03 06:44:00 Test Item Value Reference Range Interpretation Comments AGAP (test code = AGAP) 10.3 10.0-20.0 [facility]2016-07-03 06:44:00 Test Item Value Reference Range Interpretation Comments Magnesium Lvl (test code = Magnesium 2.2 1.8-2.4 Lvl) [facility] 06:44:00 Test Item Value Reference Range Interpretation Comments S Preg (test code = S Negative *NA*(02/13/16 Preg) 1:44 AM) [facility] WorthWeltqunAKNDFDTBGF4468-62-47 06:44:00 Test Item Value Reference Range Interpretation Comments Basophils (test code = 0.1 See_Comment [Aut omated message] The Basophils) system which ge nerated this result tra nsmitted reference range : <=1.0. The reference r ozzy was not used to int erpret this result as normal/abnormal . [facility] WorthWtgyzlnYVNIIQVWJM6351-19-50 06:44:00 Test Item Value Reference Range Interpretation Comments Monocytes # (test code 0.3 See_Comment [Aut omated message] The = Monocytes #) system which generated this result tra nsmitted reference range : <=0.8. The reference r ozzy was not used to int erpret this result as normal/abnormal . [facility] WorthGhmtlgmOBBQFTRVIQ3076-42-59 06:44:00 Test Item Value Reference Range Interpretation Comments Eosinophils # (test code 0.1 See_Comment [A utomated message] The = Eosinophils #) system whic h generated this result tra nsmitted reference range : <=0.5. The reference r ozzy was not used to int erpret this result as normal/abnormal . [facility] WorthOlyrfphKYSXOWQRFJ3317-82-33 06:44:00 Test Item Value Reference Range Interpretation Comments Segs-Bands # (test code = Segs-Bands #) 9.3 1.5-8.1 [facility] WorthStbtztjNYYUDNIJRS6586-65-05 06:44:00 Test Item Value Reference Range Interpretation Comments Lymphocytes # (test code = Lymphocytes 2.6 1.0-5.5 #) [facility] WorthLwselcnCBTJJGMZXW3863-69-31 06:44:00 Test Item Value Reference Range Interpretation Comments Basophils # (test code 0.0 See_Comment [Aut omated message] The = Basophils #) system which generated this result tra nsmitted reference range : <=0.2. The reference r ozzy was not used to int erpret this result as normal/abnormal . [facility] WorthJkloxpePFNCPNGCGK4246-25-85 06:44:00 Test Item Value Reference Range Interpretation Comments Microcyte (test code = 1+ *ABN*(02/13/16 1:44 Microcyte) AM) [facility] WorthUhqonqeDSWXJMJUDS1376-73-05 06:44:00 Test Item Value Reference Range Interpretation Comments Giant Plt (test code Moderate *ABN*(02/13/16 = Giant Plt) 1:44 AM) [facility] WorthCpbesmhXHUSPVVWPJ7559-69-41 06:44:00 Test Item Value Reference Range Interpretation Comments Segs (test code = Segs) 75.2 45.0-75.0 [facility] WorthBbiicouNPLGJPLFWN2259-63-45 06:44:00 Test Item Value Reference Range Interpretation Comments Hypochrom (test code = 1+ (02/13/16 1:44 AM) Hypochrom) [facility] WorthIunfsioIANSDDEGYA5449-27-37 06:44:00 Test Item Value Reference Range Interpretation Comments Eosinophils (test code = 0.7 See_Comment [A utomated message] The Eosinophils) system which ge nerated this result tra nsmitted reference range : <=4.0. The reference r ozzy was not used to int erpret this result as normal/abnormal . [facility] WorthLarbnvkRTIBIGNSYB1671-08-81 06:44:00 Test Item Value Reference Range Interpretation Comments Lymphocytes (test code = Lymphocytes) 21.3 20.0-40.0 [facility] WorthIgfvixdZCHRKUWXLT4474-76-46 06:44:00 Test Item Value Reference Range Interpretation Comments Monocytes (test code = Monocytes) 2.7 2.0-12.0 [facility] WorthVpjrcvbNAELWYHGTT9064-14-96 06:44:00 Test Item Value Reference Range Interpretation Comments MPV (test code = MPV) 9.5 7.4-10.4 [facility] WorthTrgvzmdJBWBDKZJIU4317-08-75 06:44:00 Test Item Value Reference Range Interpretation Comments RDW (test code = RDW) 17.8 11.5-14.5 [facility] WorthMaobariPUYSDKKZSF9526-06-11 06:44:00 Test Item Value Reference Range Interpretation Comments MCV (test code = MCV) 73.2 80.0-98.0 [facility] WorthZjnohnpBQLCQJRLGS5002-78-21 06:44:00 Test Item Value Reference Range Interpretation Comments MCH (test code = MCH) 21.9 pg 27.0-31.0 [facility] WorthZryqpiuSLVIDHASBC2085-40-32 06:44:00 Test Item Value Reference Range Interpretation Comments Hct (test code = Hct) 27.2 36.0-48.0 [facility] WorthLfnpkkoYQQERBRCDP0917-84-28 06:44:00 Test Item Value Reference Range Interpretation Comments MCHC (test code = MCHC) 29.9 32.0-36.0 [facility] FqadgsdMPCBRODJLI2809-19-08 06:44:00 Test Item Value Reference Range Interpretation Comments Platelet (test code = Platelet) 400 133-450 [facility]CelsdseSYSPEQFQVX9071-00-05 06:44:00 Test Item Value Reference Range Interpretation Comments WBC (test code = WBC) 12.4 3.7-10.4 [facility] HospitalEbfllolFDIVFGDAHX2650-19-18 06:44:00 Test Item Value Reference Range Interpretation Comments RBC (test code = RBC) 3.72 4.20-5.40 [facility] HospitalHoqmcjjEBLWFKBLYM4549-13-17 06:44:00 Test Item Value Reference Range Interpretation Comments Hgb (test code = Hgb) 8.1 12.0-16.0 [facility] HospitalEncdcaoMZPPURYCBM8328-37-24 06:44:00 Test Item Value Reference Range Interpretation Comments PTT (test code = PTT) 27.2 s 22.9-35.8 [facility] MotnixzEZLGVBHXLR5033-66-50 06:44:00 Test Item Value Reference Range Interpretation Comments PT (test code = PT) 14.7 s 12.0-14.7 [facility] HospitalXlyfemoFLUYGKFFDS2870-92-73 06:44:00 Test Item Value Reference Range Interpretation Comments INR (test code = INR) 1.12 0.85-1.17 [employer] [id number] 06:44:00 Test Item Value Reference Range Interpretation Comments Antibody Scrn (test Negative (02/13/16 1:44 code = Antibody Scrn) AM) [employer] [id number] 06:44:00 Test Item Value Reference Range Interpretation Comments ABO/Rh (test code = ABO/Rh) A POS [facility] [id number] 06:44:00 Test Item Value Reference Range Interpretation Comments CK MB Index (test 1.6 See_Comment [Automate d message] The code = CK MB Index) [facility] generated this result transmit gaye reference range : <=2.5. The reference range was not used to interpr et this result as satish l/abnormal. [employer]2016-07-03 06:44:00 Test Item Value Reference Range Interpretation Comments CK MB (test code = CK MB) 0.9 0.5-3.6 Carbonated Content [id number] 06:44:00 Test Item Value Reference Range Interpretation Comments Total CK (test code = Total CK) 57 12-191 [facility] HospitalAdea VIBKXCL1971-28-03 06:44:00 Test Item Value Reference Range Interpretation Comments Troponin-I (test code no gt See_Comment [Auto mated message] The = Troponin-I) system which g enerated this result transmit gaye reference range : <=0.40. The reference r ozzy was not used to interpr et this result as satish l/abnormal. [facility] [employer]2016-07-03 06:44:00 Test Item Value Reference Range Interpretation Comments Albumin Lvl (test code = Albumin Lvl) 3.5 3.5-5.0 [facility] [employer] YLSOU2802-01-06 06:44:00 Test Item Value Reference Range Interpretation Comments Total Protein (test code = Total 7.0 6.4-8.4 Protein) [facility] [employer]2016-07-03 06:44:00 Test Item Value Reference Range Interpretation Comments ALT (test code = ALT) 19 See_Comment [Auto mated message] The system which ge nerated this result transmit gaye reference range : <=65. The reference range was not used to interpr et this result as satish l/abnormal. [facility] [employer]2016-07-03 06:44:00 Test Item Value Reference Range Interpretation Comments AST (test code = AST) 10 See_Comment [Auto mated message] The system which ge nerated this result transmit gaye reference range : <=37. The reference range was not used to interpr et this result as satish l/abnormal. [facility] [employer]2016-07-03 06:44:00 Test Item Value Reference Range Interpretation Comments Alk Phos (test code = Alk Phos) 79 39-136 [facility] [employer]2016-07-03 06:44:00 Test Item Value Reference Range Interpretation Comments Bili Total (test code = Bili Total) 0.4 0.2-1.3 [facility] [employer]2016-07-03 06:44:00 Test Item Value Reference Range Interpretation Comments Bili Direct (test code 0.1 See_Comment [Aut omated message] The = Bili Direct) system which generated this result tra nsmitted reference range : <=0.3. The reference r ozzy was not used to int erpret this result as satish l/abnormal. [facility]2016-07-03 06:44:00 Test Item Value Reference Range Interpretation Comments Globulin (test code = Globulin) 3.5 2.0-4.0 [place] 779426-07-03 06:44:00 Test Item Value Reference Range Interpretation Comments A/G Ratio (test code = A/G Ratio) 1.0 0.7-1.6 [facility]2016-07-03 06:44:00 Test Item Value Reference Range Interpretation Comments Bili Indirect (test 0.3 See_Comment [Automa gaye message] The code = Bili Indirect) system which generated this result tra nsmitted reference range : <=1.0. The reference r ozzy was not used to int erpret this result as normal/abnormal . [facility]2016-07-03 06:44:00 Test Item Value Reference Range Interpretation Comments eGFR (test code = eGFR) 107 [facility]2016-07-03 06:44:00 Test Item Value Reference Range Interpretation Comments BUN (test code = BUN) 8 7-22 [facility]2016-07-03 06:44:00 Test Item Value Reference Range Interpretation Comments Glucose Lvl (test code = Glucose Lvl) 91 70-99 [facility]2016-07-03 06:44:00 Test Item Value Reference Range Interpretation Comments Sodium Lvl (test code = Sodium Lvl) 138 135-145 [facility]2016-07-03 06:44:00 Test Item Value Reference Range Interpretation Comments Creatinine Lvl (test code = Creatinine 0.70 0.50-1.40 Lvl) [facility]2016-07-03 06:44:00 Test Item Value Reference Range Interpretation Comments Potassium Lvl (test code = Potassium 3.3 3.5-5.1 Lvl) [facility]2016-07-03 06:44:00 Test Item Value Reference Range Interpretation Comments CO2 (test code = CO2) 25 24-32 [facility]2016-07-03 06:44:00 Test Item Value Reference Range Interpretation Comments Chloride Lvl (test code = Chloride Lvl) 106 95-109 [place] 779426-07-03 06:44:00 Test Item Value Reference Range Interpretation Comments Calcium Lvl (test code = Calcium Lvl) 8.1 8.5-10.5 [facility]2016-07-03 06:44:00 Test Item Value Reference Range Interpretation Comments AGAP (test code = AGAP) 10.3 10.0-20.0 [facility]2016-07-03 06:44:00 Test Item Value Reference Range Interpretation Comments Magnesium Lvl (test code = Magnesium 2.2 1.8-2.4 Lvl) [place] 75304016-07-03 06:44:00 Test Item Value Reference Range Interpretation Comments S Preg (test code = S Negative *NA*(02/13/16 Preg) 1:44 AM) [facility] WorthDfhawwvCNXNHFJSLG4039-03-06 06:44:00 Test Item Value Reference Range Interpretation Comments Basophils (test code = 0.1 See_Comment [Aut omated message] The Basophils) system which ge nerated this result tra nsmitted reference range : <=1.0. The reference r ozzy was not used to int erpret this result as normal/abnormal . [facility] WorthZnebbiiLRRHWQRTGS9033-42-75 06:44:00 Test Item Value Reference Range Interpretation Comments Monocytes # (test code 0.3 See_Comment [Aut omated message] The = Monocytes #) system which generated this result tra nsmitted reference range : <=0.8. The reference r ozzy was not used to int erpret this result as normal/abnormal . [facility] WorthAthvgtzUFURNSISGW7805-05-02 06:44:00 Test Item Value Reference Range Interpretation Comments Eosinophils # (test code 0.1 See_Comment [A utomated message] The = Eosinophils #) system whic h generated this result tra nsmitted reference range : <=0.5. The reference r ozzy was not used to int erpret this result as normal/abnormal . [facility] WorthOutgtpuSWGHMLFQNY5812-30-39 06:44:00 Test Item Value Reference Range Interpretation Comments Segs-Bands # (test code = Segs-Bands #) 9.3 1.5-8.1 [facility] WorthDuimvnyUSSGQHGHDS6922-06-73 06:44:00 Test Item Value Reference Range Interpretation Comments Lymphocytes # (test code = Lymphocytes 2.6 1.0-5.5 #) [facility] WorthRytwlgdMYRENNTCRR6121-04-55 06:44:00 Test Item Value Reference Range Interpretation Comments Basophils # (test code 0.0 See_Comment [Aut omated message] The = Basophils #) system which generated this result tra nsmitted reference range : <=0.2. The reference r ozzy was not used to int erpret this result as normal/abnormal . [facility] WorthJmidlhcYQDPOWZGLG2227-90-25 06:44:00 Test Item Value Reference Range Interpretation Comments Microcyte (test code = 1+ *ABN*(02/13/16 1:44 Microcyte) AM) [facility] WorthEyyzcaoQUKWFGQQPQ1615-75-49 06:44:00 Test Item Value Reference Range Interpretation Comments Giant Plt (test code Moderate *ABN*(02/13/16 = Giant Plt) 1:44 AM) [facility] WorthZqaaibrUBHPIGEEDF1701-41-73 06:44:00 Test Item Value Reference Range Interpretation Comments Segs (test code = Segs) 75.2 45.0-75.0 [facility] WorthPgisodyIGMRXHKBJC0678-68-46 06:44:00 Test Item Value Reference Range Interpretation Comments Hypochrom (test code = 1+ (02/13/16 1:44 AM) Hypochrom) [facility] WorthHtdswffCBVDLUXIXB9944-17-32 06:44:00 Test Item Value Reference Range Interpretation Comments Eosinophils (test code = 0.7 See_Comment [A utomated message] The Eosinophils) system which ge nerated this result tra nsmitted reference range : <=4.0. The reference r ozzy was not used to int erpret this result as normal/abnormal . [facility] WorthDyczxwnSQSAKELHIN7193-11-58 06:44:00 Test Item Value Reference Range Interpretation Comments Lymphocytes (test code = Lymphocytes) 21.3 20.0-40.0 [facility] WorthEaickhcIDHIFUHGRU3511-63-39 06:44:00 Test Item Value Reference Range Interpretation Comments Monocytes (test code = Monocytes) 2.7 2.0-12.0 [facility] WorthHrgibyeWJIMIWWGLN8910-45-59 06:44:00 Test Item Value Reference Range Interpretation Comments MPV (test code = MPV) 9.5 7.4-10.4 [facility] WorthFjpsjfbQHKFKOREPS2852-22-66 06:44:00 Test Item Value Reference Range Interpretation Comments RDW (test code = RDW) 17.8 11.5-14.5 [facility]WfksmruLFRNKBGLZS4518-54-12 06:44:00 Test Item Value Reference Range Interpretation Comments MCV (test code = MCV) 73.2 80.0-98.0 [facility] HospitalIywwgczNCTTOJHXTJ2293-33-35 06:44:00 Test Item Value Reference Range Interpretation Comments MCH (test code = MCH) 21.9 pg 27.0-31.0 [facility] HospitalHririkzQNQPBCKRAU3365-17-03 06:44:00 Test Item Value Reference Range Interpretation Comments Hct (test code = Hct) 27.2 36.0-48.0 [facility] HospitalScqayfaYARRDLVZSE1436-36-01 06:44:00 Test Item Value Reference Range Interpretation Comments MCHC (test code = MCHC) 29.9 32.0-36.0 [facility] WorthEnuxpmaNWDCSJYQEO1881-48-28 06:44:00 Test Item Value Reference Range Interpretation Comments Platelet (test code = Platelet) 400 133-450 [facility] WorthQzbiuwxCVHQWNVXOP4776-62-27 06:44:00 Test Item Value Reference Range Interpretation Comments WBC (test code = WBC) 12.4 3.7-10.4 [facility] HospitalUlxuuoxUVWDRKRNWX2295-76-60 06:44:00 Test Item Value Reference Range Interpretation Comments RBC (test code = RBC) 3.72 4.20-5.40 [facility] WorthPdigyohKDSROLOZJH5468-22-73 06:44:00 Test Item Value Reference Range Interpretation Comments Hgb (test code = Hgb) 8.1 12.0-16.0 [facility] WorthPwhbrnnMISPGTOITW0885-40-96 06:44:00 Test Item Value Reference Range Interpretation Comments PTT (test code = PTT) 27.2 s 22.9-35.8 [facility] WorthTglvwtpMNVUEKDLCJ6699-33-67 06:44:00 Test Item Value Reference Range Interpretation Comments PT (test code = PT) 14.7 s 12.0-14.7 [facility] WorthMdczqffKWPAUSYFJN3134-31-80 06:44:00 Test Item Value Reference Range Interpretation Comments INR (test code = INR) 1.12 0.85-1.17 [facility] [id number] 06:44:00 Test Item Value Reference Range Interpretation Comments Antibody Scrn (test Negative (02/13/16 1:44 code = Antibody Scrn) AM) [facility] [id number] 06:44:00 Test Item Value Reference Range Interpretation Comments ABO/Rh (test code = ABO/Rh) A POS [facility] [id number] 06:44:00 Test Item Value Reference Range Interpretation Comments CK MB Index (test 1.6 See_Comment [Automate d message] The code = CK MB Index) [facility] generated this result transmit gaye reference range : <=2.5. The reference range was not used to interpr et this result as satish l/abnormal. [facility] [employer] FCBDKUP7782-67-10 06:44:00 Test Item Value Reference Range Interpretation Comments CK MB (test code = CK MB) 0.9 0.5-3.6 [facility] BJCYKET9648-01-50 06:44:00 Test Item Value Reference Range Interpretation Comments Total CK (test code = Total CK) 57 12-191 [facility] [employer] QQQKSNQ6525-26-37 06:44:00 Test Item Value Reference Range Interpretation Comments Troponin-I (test code no gt See_Comment [Auto mated message] The = Troponin-I) system which g enerated this result transmit gaye reference range : <=0.40. The reference r ozzy was not used to interpr et this result as satish l/abnormal. [employer] [id number] 06:44:00 Test Item Value Reference Range Interpretation Comments Albumin Lvl (test code = Albumin Lvl) 3.5 3.5-5.0 [facility] [employer] [id number] 06:44:00 Test Item Value Reference Range Interpretation Comments Total Protein (test code = Total 7.0 6.4-8.4 Protein) [facility] [employer] [id number] 06:44:00 Test Item Value Reference Range Interpretation Comments ALT (test code = ALT) 19 See_Comment [Auto mated message] The system which ge nerated this result transmit gaye reference range : <=65. The reference range was not used to interpr et this result as satish l/abnormal. [employer] [id number] 06:44:00 Test Item Value Reference Range Interpretation Comments AST (test code = AST) 10 See_Comment [Auto mated message] The system which ge nerated this result transmit gaye reference range : <=37. The reference range was not used to interpr et this result as satish l/abnormal. [facility]Job1001[id number] 06:44:00 Test Item Value Reference Range Interpretation Comments Alk Phos (test code = Alk Phos) 79 39-136 [facility]2016-07-03 06:44:00 Test Item Value Reference Range Interpretation Comments Bili Total (test code = Bili Total) 0.4 0.2-1.3 [place] [id number] 06:44:00 Test Item Value Reference Range Interpretation Comments Bili Direct (test code 0.1 See_Comment [Aut omated message] The = Bili Direct) system which generated this result tra nsmitted reference range : <=0.3. The reference r ozzy was not used to int erpret this result as satish l/abnormal. [facility] HospitalBl[facility] [employer] [id number] 06:44:00 Test Item Value Reference Range Interpretation Comments Globulin (test code = Globulin) 3.5 2.0-4.0 [facility] HospitalJob1001[facility] [id number] 06:44:00 Test Item Value Reference Range Interpretation Comments A/G Ratio (test code = A/G Ratio) 1.0 0.7-1.6 [facility]2016-07-03 06:44:00 Test Item Value Reference Range Interpretation Comments Bili Indirect (test 0.3 See_Comment [Automa gaye message] The code = Bili Indirect) system which generated this result tra nsmitted reference range : <=1.0. The reference r ozzy was not used to int erpret this result as normal/abnormal . [facility] [id number] 06:44:00 Test Item Value Reference Range Interpretation Comments eGFR (test code = eGFR) 107 [facility]2016-07-03 06:44:00 Test Item Value Reference Range Interpretation Comments BUN (test code = BUN) 8 7-22 [facility]2016-07-03 06:44:00 Test Item Value Reference Range Interpretation Comments Glucose Lvl (test code = Glucose Lvl) 91 70-99 [facility] [id number] 06:44:00 Test Item Value Reference Range Interpretation Comments Sodium Lvl (test code = Sodium Lvl) 138 135-145 [facility]2016-07-03 06:44:00 Test Item Value Reference Range Interpretation Comments Creatinine Lvl (test code = Creatinine 0.70 0.50-1.40 Lvl) [facility]2016-07-03 06:44:00 Test Item Value Reference Range Interpretation Comments Potassium Lvl (test code = Potassium 3.3 3.5-5.1 Lvl) [facility]2016-07-03 06:44:00 Test Item Value Reference Range Interpretation Comments CO2 (test code = CO2) 25 24-32 [facility]2016-07-03 06:44:00 Test Item Value Reference Range Interpretation Comments Chloride Lvl (test code = Chloride Lvl) 106 95-109 [facility]2016-07-03 06:44:00 Test Item Value Reference Range Interpretation Comments Calcium Lvl (test code = Calcium Lvl) 8.1 8.5-10.5 [facility]2016-07-03 06:44:00 Test Item Value Reference Range Interpretation Comments AGAP (test code = AGAP) 10.3 10.0-20.0 [facility]2016-07-03 06:44:00 Test Item Value Reference Range Interpretation Comments Magnesium Lvl (test code = Magnesium 2.2 1.8-2.4 Lvl) [facility] AreaR[id number] 06:44:00 Test Item Value Reference Range Interpretation Comments S Preg (test code = S Negative *NA*(02/13/16 Preg) 1:44 AM) [facility] WorthOogwtzoSQEDXETDDA3644-52-55 06:44:00 Test Item Value Reference Range Interpretation Comments Basophils (test code = 0.1 See_Comment [Aut omated message] The Basophils) system which ge nerated this result tra nsmitted reference range : <=1.0. The reference r ozzy was not used to int erpret this result as normal/abnormal . [facility] WorthWitbzpgCODBMNJLIP0332-30-13 06:44:00 Test Item Value Reference Range Interpretation Comments Monocytes # (test code 0.3 See_Comment [Aut omated message] The = Monocytes #) system which generated this result tra nsmitted reference range : <=0.8. The reference r ozzy was not used to int erpret this result as normal/abnormal . [facility] WorthShjrxziGEIANXZZME7093-12-71 06:44:00 Test Item Value Reference Range Interpretation Comments Eosinophils # (test code 0.1 See_Comment [A utomated message] The = Eosinophils #) system whic h generated this result tra nsmitted reference range : <=0.5. The reference r ozzy was not used to int erpret this result as normal/abnormal . [facility] WorthRzrrditJAJDRAGZRE3964-47-81 06:44:00 Test Item Value Reference Range Interpretation Comments Segs-Bands # (test code = Segs-Bands #) 9.3 1.5-8.1 [facility] WorthYhwtifnWVAHJVWEAE9165-04-79 06:44:00 Test Item Value Reference Range Interpretation Comments Lymphocytes # (test code = Lymphocytes 2.6 1.0-5.5 #) [facility] WorthRkoicxkRQMECTOUHN5925-80-37 06:44:00 Test Item Value Reference Range Interpretation Comments Basophils # (test code 0.0 See_Comment [Aut omated message] The = Basophils #) system which generated this result tra nsmitted reference range : <=0.2. The reference r ozzy was not used to int erpret this result as normal/abnormal . [facility] WorthSgholdkHTKISGFVDZ6349-82-77 06:44:00 Test Item Value Reference Range Interpretation Comments Microcyte (test code = 1+ *ABN*(02/13/16 1:44 Microcyte) AM) [facility] WorthJpmuwpaUHSWTZRAOU9452-81-07 06:44:00 Test Item Value Reference Range Interpretation Comments Giant Plt (test code Moderate *ABN*(02/13/16 = Giant Plt) 1:44 AM) [facility] WorthOpsdappIXNNKLAPEG6642-43-79 06:44:00 Test Item Value Reference Range Interpretation Comments Segs (test code = Segs) 75.2 45.0-75.0 [facility] WorthMbpeonlNKSAUGFVLJ1182-58-76 06:44:00 Test Item Value Reference Range Interpretation Comments Hypochrom (test code = 1+ (02/13/16 1:44 AM) Hypochrom) [facility] WorthSjazadjVRLAUKRBZR5289-62-45 06:44:00 Test Item Value Reference Range Interpretation Comments Eosinophils (test code = 0.7 See_Comment [A utomated message] The Eosinophils) system which ge nerated this result tra nsmitted reference range : <=4.0. The reference r ozzy was not used to int erpret this result as normal/abnormal . [facility] WorthHfxlwqjVSFLEIIELC5519-71-13 06:44:00 Test Item Value Reference Range Interpretation Comments Lymphocytes (test code = Lymphocytes) 21.3 20.0-40.0 [facility] WorthLcwniewMJSLZILOLD7426-95-39 06:44:00 Test Item Value Reference Range Interpretation Comments Monocytes (test code = Monocytes) 2.7 2.0-12.0 [facility] WorthAlziykzEXWCEPUPRA4708-10-60 06:44:00 Test Item Value Reference Range Interpretation Comments MPV (test code = MPV) 9.5 7.4-10.4 [facility] WorthGgeajsdBBJMXZMJSK0640-90-18 06:44:00 Test Item Value Reference Range Interpretation Comments RDW (test code = RDW) 17.8 11.5-14.5 [facility] WorthSbhwwcyKGSTFNWNXB9519-14-08 06:44:00 Test Item Value Reference Range Interpretation Comments MCV (test code = MCV) 73.2 80.0-98.0 [facility] WorthGehusvyINXVTYXWKW6456-11-76 06:44:00 Test Item Value Reference Range Interpretation Comments MCH (test code = MCH) 21.9 pg 27.0-31.0 [facility] WorthRondijdWKUXSSAXDR5687-35-44 06:44:00 Test Item Value Reference Range Interpretation Comments Hct (test code = Hct) 27.2 36.0-48.0 [facility] WorthCmqinnwMDOIBXCYGK1163-34-49 06:44:00 Test Item Value Reference Range Interpretation Comments MCHC (test code = MCHC) 29.9 32.0-36.0 [facility] WorthUlcdtuxKCEJBOLVPS1100-46-06 06:44:00 Test Item Value Reference Range Interpretation Comments Platelet (test code = Platelet) 400 133-450 [facility] WorthVcaxwyrHSTYVXMDKX2251-56-22 06:44:00 Test Item Value Reference Range Interpretation Comments WBC (test code = WBC) 12.4 3.7-10.4 [facility] WorthFsagndyEDGBKQRWRI2562-37-31 06:44:00 Test Item Value Reference Range Interpretation Comments RBC (test code = RBC) 3.72 4.20-5.40 [facility] WorthDavszzbJRHVOEIYSS7973-48-88 06:44:00 Test Item Value Reference Range Interpretation Comments Hgb (test code = Hgb) 8.1 12.0-16.0 [facility] LabsOuojihzBINBFQVAEI2822-27-43 06:44:00 Test Item Value Reference Range Interpretation Comments PTT (test code = PTT) 27.2 s 22.9-35.8 [facility] AyodojeKZNXZAJNSD6365-72-81 06:44:00 Test Item Value Reference Range Interpretation Comments PT (test code = PT) 14.7 s 12.0-14.7 [facility] LabsHfapaceGMKHRKJYXC7466-83-75 06:44:00 Test Item Value Reference Range Interpretation Comments INR (test code = INR) 1.12 0.85-1.17 [employer] [id number] 06:44:00 Test Item Value Reference Range Interpretation Comments Antibody Scrn (test Negative (02/13/16 1:44 code = Antibody Scrn) AM) [employer] [id number] 06:44:00 Test Item Value Reference Range Interpretation Comments ABO/Rh (test code = ABO/Rh) A POS [employer]2016-07-03 06:44:00 Test Item Value Reference Range Interpretation Comments CK MB Index (test 1.6 See_Comment [Automate d message] The code = CK MB Index) [facility] generated this result transmit gaye reference range : <=2.5. The reference range was not used to interpr et this result as satish l/abnormal. [employer]2016-07-03 06:44:00 Test Item Value Reference Range Interpretation Comments CK MB (test code = CK MB) 0.9 0.5-3.6 [employer]2016-07-03 06:44:00 Test Item Value Reference Range Interpretation Comments Total CK (test code = Total CK) 57 12-191 [facility] [employer]2016-07-03 06:44:00 Test Item Value Reference Range Interpretation Comments Troponin-I (test code no gt See_Comment [Auto mated message] The = Troponin-I) system which g enerated this result transmit gaye reference range : <=0.40. The reference r ozzy was not used to interpr et this result as satish l/abnormal. [employer] [id number] 06:44:00 Test Item Value Reference Range Interpretation Comments Albumin Lvl (test code = Albumin Lvl) 3.5 3.5-5.0 [facility]Bl[facility] [id number] 06:44:00 Test Item Value Reference Range Interpretation Comments Total Protein (test code = Total 7.0 6.4-8.4 Protein) [facility]2016-07-03 06:44:00 Test Item Value Reference Range Interpretation Comments ALT (test code = ALT) 19 See_Comment [Auto mated message] The system which ge nerated this result transmit gaye reference range : <=65. The reference range was not used to interpr et this result as satish l/abnormal. [facility] [id number] 06:44:00 Test Item Value Reference Range Interpretation Comments AST (test code = AST) 10 See_Comment [Auto mated message] The system which ge nerated this result transmit gaye reference range : <=37. The reference range was not used to interpr et this result as satish l/abnormal. [facility] [id number] 06:44:00 Test Item Value Reference Range Interpretation Comments Alk Phos (test code = Alk Phos) 79 39-136 [facility] [id number] 06:44:00 Test Item Value Reference Range Interpretation Comments Bili Total (test code = Bili Total) 0.4 0.2-1.3 [facility]2016-07-03 06:44:00 Test Item Value Reference Range Interpretation Comments Bili Direct (test code 0.1 See_Comment [Aut omated message] The = Bili Direct) system which generated this result tra nsmitted reference range : <=0.3. The reference r ozzy was not used to int erpret this result as satish l/abnormal. [facility] [id number] 06:44:00 Test Item Value Reference Range Interpretation Comments Globulin (test code = Globulin) 3.5 2.0-4.0 [facility] [id number] 06:44:00 Test Item Value Reference Range Interpretation Comments A/G Ratio (test code = A/G Ratio) 1.0 0.7-1.6 [facility]Bl[facility] [id number] 06:44:00 Test Item Value Reference Range Interpretation Comments Bili Indirect (test 0.3 See_Comment [Automa gaye message] The code = Bili Indirect) system which generated this result tra nsmitted reference range : <=1.0. The reference r ozzy was not used to int erpret this result as normal/abnormal . [facility]2016-07-03 06:44:00 Test Item Value Reference Range Interpretation Comments eGFR (test code = eGFR) 107 [facility]2016-07-03 06:44:00 Test Item Value Reference Range Interpretation Comments BUN (test code = BUN) 8 7-22 [facility]2016-07-03 06:44:00 Test Item Value Reference Range Interpretation Comments Glucose Lvl (test code = Glucose Lvl) 91 70-99 [facility]2016-07-03 06:44:00 Test Item Value Reference Range Interpretation Comments Sodium Lvl (test code = Sodium Lvl) 138 135-145 [facility]2016-07-03 06:44:00 Test Item Value Reference Range Interpretation Comments Creatinine Lvl (test code = Creatinine 0.70 0.50-1.40 Lvl) [facility]2016-07-03 06:44:00 Test Item Value Reference Range Interpretation Comments Potassium Lvl (test code = Potassium 3.3 3.5-5.1 Lvl) [facility]2016-07-03 06:44:00 Test Item Value Reference Range Interpretation Comments CO2 (test code = CO2) 25 24-32 [facility]2016-07-03 06:44:00 Test Item Value Reference Range Interpretation Comments Chloride Lvl (test code = Chloride Lvl) 106 95-109 [facility]2016-07-03 06:44:00 Test Item Value Reference Range Interpretation Comments Calcium Lvl (test code = Calcium Lvl) 8.1 8.5-10.5 [facility]2016-07-03 06:44:00 Test Item Value Reference Range Interpretation Comments AGAP (test code = AGAP) 10.3 10.0-20.0 [facility]2016-07-03 06:44:00 Test Item Value Reference Range Interpretation Comments Magnesium Lvl (test code = Magnesium 2.2 1.8-2.4 Lvl) [facility]SosvxjfFKSENNZCUBFIP2946-56-30 06:44:00 Test Item Value Reference Range Interpretation Comments S Preg (test code = S Negative *NA*(02/13/16 Preg) 1:44 AM) [facility] WorthKmzkyupKNXVZDJCQY8283-51-18 06:44:00 Test Item Value Reference Range Interpretation Comments Basophils (test code = 0.1 See_Comment [Aut omated message] The Basophils) system which ge nerated this result tra nsmitted reference range : <=1.0. The reference r ozzy was not used to int erpret this result as normal/abnormal . [facility] WorthNysczupSEWAVGFLNR4456-80-24 06:44:00 Test Item Value Reference Range Interpretation Comments Monocytes # (test code 0.3 See_Comment [Aut omated message] The = Monocytes #) system which generated this result tra nsmitted reference range : <=0.8. The reference r ozzy was not used to int erpret this result as normal/abnormal . [facility] WorthVpvowgxDCIRKDGUKL9408-85-06 06:44:00 Test Item Value Reference Range Interpretation Comments Eosinophils # (test code 0.1 See_Comment [A utomated message] The = Eosinophils #) system whic h generated this result tra nsmitted reference range : <=0.5. The reference r ozzy was not used to int erpret this result as normal/abnormal . [facility] WorthUlrucarRRGRRPCLSC5248-99-86 06:44:00 Test Item Value Reference Range Interpretation Comments Segs-Bands # (test code = Segs-Bands #) 9.3 1.5-8.1 [facility] WorthOfrvrzaPQIZVVPDUE8399-59-42 06:44:00 Test Item Value Reference Range Interpretation Comments Lymphocytes # (test code = Lymphocytes 2.6 1.0-5.5 #) [facility] WorthTdsaksnGDTNFAQBHC4535-29-29 06:44:00 Test Item Value Reference Range Interpretation Comments Basophils # (test code 0.0 See_Comment [Aut omated message] The = Basophils #) system which generated this result tra nsmitted reference range : <=0.2. The reference r ozzy was not used to int erpret this result as normal/abnormal . [facility] WorthEuqicssSZRHCIIPQE0951-99-88 06:44:00 Test Item Value Reference Range Interpretation Comments Microcyte (test code = 1+ *ABN*(02/13/16 1:44 Microcyte) AM) [facility] WorthMqcdgcuIPSBGXXNTA7417-93-18 06:44:00 Test Item Value Reference Range Interpretation Comments Giant Plt (test code Moderate *ABN*(02/13/16 = Giant Plt) 1:44 AM) [facility] WorthJhuccsvNFAWCIAXJR2300-03-43 06:44:00 Test Item Value Reference Range Interpretation Comments Segs (test code = Segs) 75.2 45.0-75.0 [facility] WorthIrdgbiwSTUAPJJYPQ0919-94-88 06:44:00 Test Item Value Reference Range Interpretation Comments Hypochrom (test code = 1+ (02/13/16 1:44 AM) Hypochrom) [facility] WorthSzorxktJYUYAAPAJC5578-93-08 06:44:00 Test Item Value Reference Range Interpretation Comments Eosinophils (test code = 0.7 See_Comment [A utomated message] The Eosinophils) system which ge nerated this result tra nsmitted reference range : <=4.0. The reference r ozzy was not used to int erpret this result as normal/abnormal . [facility] WorthNrabmqbSWNGJCBXEH3286-34-96 06:44:00 Test Item Value Reference Range Interpretation Comments Lymphocytes (test code = Lymphocytes) 21.3 20.0-40.0 [facility] WorthXtdybhjBJUEMAMRCS9924-87-43 06:44:00 Test Item Value Reference Range Interpretation Comments Monocytes (test code = Monocytes) 2.7 2.0-12.0 [facility] WorthAlvtxexNBFFYIUJQK7850-91-75 06:44:00 Test Item Value Reference Range Interpretation Comments MPV (test code = MPV) 9.5 7.4-10.4 [facility] WorthTilkezuKICDDHTXJL6294-02-57 06:44:00 Test Item Value Reference Range Interpretation Comments RDW (test code = RDW) 17.8 11.5-14.5 [facility] WorthFyujskpGLVBZKOEXH4422-00-28 06:44:00 Test Item Value Reference Range Interpretation Comments MCV (test code = MCV) 73.2 80.0-98.0 [facility] WorthPaxoikzNPLSLKRQUE9217-47-96 06:44:00 Test Item Value Reference Range Interpretation Comments MCH (test code = MCH) 21.9 pg 27.0-31.0 [facility] WorthRtjuyogGUCADYCNTV8889-84-82 06:44:00 Test Item Value Reference Range Interpretation Comments Hct (test code = Hct) 27.2 36.0-48.0 [facility] HospitalAurwicfURVNXQHXHN5774-33-90 06:44:00 Test Item Value Reference Range Interpretation Comments MCHC (test code = MCHC) 29.9 32.0-36.0 [facility]VnmxvdxQXZXIBNSGR0251-45-91 06:44:00 Test Item Value Reference Range Interpretation Comments Platelet (test code = Platelet) 400 133-450 [facility] HospitalSbuvhkaGSGQNFXRBS1580-49-35 06:44:00 Test Item Value Reference Range Interpretation Comments WBC (test code = WBC) 12.4 3.7-10.4 [facility] HospitalHslmpxjINNNXPGWNN3328-11-79 06:44:00 Test Item Value Reference Range Interpretation Comments RBC (test code = RBC) 3.72 4.20-5.40 [facility] HospitalDzileqvXSLUOXLXQA2701-40-45 06:44:00 Test Item Value Reference Range Interpretation Comments Hgb (test code = Hgb) 8.1 12.0-16.0 [facility] HospitalDgemwxtIFSQQZIMDY1880-38-14 06:44:00 Test Item Value Reference Range Interpretation Comments PTT (test code = PTT) 27.2 s 22.9-35.8 [facility] HospitalXsrnwpoQQAGGRURDI1763-61-34 06:44:00 Test Item Value Reference Range Interpretation Comments PT (test code = PT) 14.7 s 12.0-14.7 [facility] HospitalHlkgvweWMWWLPWKMM6722-98-22 06:44:00 Test Item Value Reference Range Interpretation Comments INR (test code = INR) 1.12 0.85-1.17 [employer] [id number] 06:44:00 Test Item Value Reference Range Interpretation Comments Antibody Scrn (test Negative (02/13/16 1:44 code = Antibody Scrn) AM) [facility] [employer] [id number] 06:44:00 Test Item Value Reference Range Interpretation Comments ABO/Rh (test code = ABO/Rh) A POS [employer]annCARDIAC [id number] 06:44:00 Test Item Value Reference Range Interpretation Comments CK MB Index (test 1.6 See_Comment [Automate d message] The code = CK MB Index) [facility] generated this result transmit gaye reference range : <=2.5. The reference range was not used to interpr et this result as satish l/abnormal. [facility]ARDIAC [id number] 06:44:00 Test Item Value Reference Range Interpretation Comments CK MB (test code = CK MB) 0.9 0.5-3.6 [facility] HospitalFashionFreax GmbH [id number] 06:44:00 Test Item Value Reference Range Interpretation Comments Total CK (test code = Total CK) 57 12-191 [facility] HospitalAdea YVMYEFO0434-24-87 06:44:00 Test Item Value Reference Range Interpretation Comments Troponin-I (test code no gt See_Comment [Auto mated message] The = Troponin-I) system which g enerated this result transmit gaye reference range : <=0.40. The reference r ozzy was not used to interpr et this result as satish l/abnormal. [facility] [employer] [id number] 06:44:00 Test Item Value Reference Range Interpretation Comments Albumin Lvl (test code = Albumin Lvl) 3.5 3.5-5.0 [facility] [employer]2016-07-03 06:44:00 Test Item Value Reference Range Interpretation Comments Total Protein (test code = Total 7.0 6.4-8.4 Protein) [facility] [employer] [id number] 06:44:00 Test Item Value Reference Range Interpretation Comments ALT (test code = ALT) 19 See_Comment [Auto mated message] The system which ge nerated this result transmit gaye reference range : <=65. The reference range was not used to interpr et this result as satish l/abnormal. [facility] [employer] [id number] 06:44:00 Test Item Value Reference Range Interpretation Comments AST (test code = AST) 10 See_Comment [Auto mated message] The system which ge nerated this result transmit gaye reference range : <=37. The reference range was not used to interpr et this result as satish l/abnormal. [facility] [employer]2016-07-03 06:44:00 Test Item Value Reference Range Interpretation Comments Alk Phos (test code = Alk Phos) 79 39-136 [facility] [employer] [id number] 06:44:00 Test Item Value Reference Range Interpretation Comments Bili Total (test code = Bili Total) 0.4 0.2-1.3 [facility] [employer]2016-07-03 06:44:00 Test Item Value Reference Range Interpretation Comments Bili Direct (test code 0.1 See_Comment [Aut omated message] The = Bili Direct) system which generated this result tra nsmitted reference range : <=0.3. The reference r ozzy was not used to int erpret this result as satish l/abnormal. [place] [id number] 06:44:00 Test Item Value Reference Range Interpretation Comments Globulin (test code = Globulin) 3.5 2.0-4.0 [facility]2016-07-03 06:44:00 Test Item Value Reference Range Interpretation Comments A/G Ratio (test code = A/G Ratio) 1.0 0.7-1.6 [facility]2016-07-03 06:44:00 Test Item Value Reference Range Interpretation Comments Bili Indirect (test 0.3 See_Comment [Automa gaye message] The code = Bili Indirect) system which generated this result tra nsmitted reference range : <=1.0. The reference r ozzy was not used to int erpret this result as normal/abnormal . [facility]2016-07-03 06:44:00 Test Item Value Reference Range Interpretation Comments eGFR (test code = eGFR) 107 [facility]2016-07-03 06:44:00 Test Item Value Reference Range Interpretation Comments BUN (test code = BUN) 8 7-22 [facility]2016-07-03 06:44:00 Test Item Value Reference Range Interpretation Comments Glucose Lvl (test code = Glucose Lvl) 91 70-99 [facility]2016-07-03 06:44:00 Test Item Value Reference Range Interpretation Comments Sodium Lvl (test code = Sodium Lvl) 138 135-145 [facility]2016-07-03 06:44:00 Test Item Value Reference Range Interpretation Comments Creatinine Lvl (test code = Creatinine 0.70 0.50-1.40 Lvl) [facility]2016-07-03 06:44:00 Test Item Value Reference Range Interpretation Comments Potassium Lvl (test code = Potassium 3.3 3.5-5.1 Lvl) [facility]2016-07-03 06:44:00 Test Item Value Reference Range Interpretation Comments CO2 (test code = CO2) 25 24-32 [facility]2016-07-03 06:44:00 Test Item Value Reference Range Interpretation Comments Chloride Lvl (test code = Chloride Lvl) 106 95-109 [facility]2016-07-03 06:44:00 Test Item Value Reference Range Interpretation Comments Calcium Lvl (test code = Calcium Lvl) 8.1 8.5-10.5 [facility]2016-07-03 06:44:00 Test Item Value Reference Range Interpretation Comments AGAP (test code = AGAP) 10.3 10.0-20.0 [facility]2016-07-03 06:44:00 Test Item Value Reference Range Interpretation Comments Magnesium Lvl (test code = Magnesium 2.2 1.8-2.4 Lvl) [place] 75304016-07-03 06:44:00 Test Item Value Reference Range Interpretation Comments S Preg (test code = S Negative *NA*(02/13/16 Preg) 1:44 AM) [facility]ie[facility]xyHQFNCFLOSL6698-60-60 06:44:00 Test Item Value Reference Range Interpretation Comments Basophils (test code = 0.1 See_Comment [Aut omated message] The Basophils) system which ge nerated this result tra nsmitted reference range : <=1.0. The reference r ozzy was not used to int erpret this result as normal/abnormal . [facility] WorthWrnxyhfSVVJXWHRAA4938-13-34 06:44:00 Test Item Value Reference Range Interpretation Comments Monocytes # (test code 0.3 See_Comment [Aut omated message] The = Monocytes #) system which generated this result tra nsmitted reference range : <=0.8. The reference r ozzy was not used to int erpret this result as normal/abnormal . [facility] WorthWngqklbAXCBCLZEPP3571-78-58 06:44:00 Test Item Value Reference Range Interpretation Comments Eosinophils # (test code 0.1 See_Comment [A utomated message] The = Eosinophils #) system whic h generated this result tra nsmitted reference range : <=0.5. The reference r ozzy was not used to int erpret this result as normal/abnormal . [facility] WorthQixtycjMATLHWJEJU4857-76-35 06:44:00 Test Item Value Reference Range Interpretation Comments Segs-Bands # (test code = Segs-Bands #) 9.3 1.5-8.1 [facility] WorthZepmtioVSNWADQHVH0919-72-76 06:44:00 Test Item Value Reference Range Interpretation Comments Lymphocytes # (test code = Lymphocytes 2.6 1.0-5.5 #) [facility] WorthOsxmbqqMYNVUOVSNV7533-90-33 06:44:00 Test Item Value Reference Range Interpretation Comments Basophils # (test code 0.0 See_Comment [Aut omated message] The = Basophils #) system which generated this result tra nsmitted reference range : <=0.2. The reference r ozzy was not used to int erpret this result as normal/abnormal . [facility] WorthKlyvadwFMKNGFNQDO4943-81-14 06:44:00 Test Item Value Reference Range Interpretation Comments Microcyte (test code = 1+ *ABN*(02/13/16 1:44 Microcyte) AM) [facility] WorthQeeqltoWDLABHYZAJ6974-41-78 06:44:00 Test Item Value Reference Range Interpretation Comments Giant Plt (test code Moderate *ABN*(02/13/16 = Giant Plt) 1:44 AM) [facility] WorthThrohrsYNUQEQMWGO7151-74-77 06:44:00 Test Item Value Reference Range Interpretation Comments Segs (test code = Segs) 75.2 45.0-75.0 [facility] WorthRgxnfzwVDFVRXSJII2595-91-60 06:44:00 Test Item Value Reference Range Interpretation Comments Hypochrom (test code = 1+ (02/13/16 1:44 AM) Hypochrom) [facility] WorthDxgalxyREHGIPWZBT1174-87-06 06:44:00 Test Item Value Reference Range Interpretation Comments Eosinophils (test code = 0.7 See_Comment [A utomated message] The Eosinophils) system which ge nerated this result tra nsmitted reference range : <=4.0. The reference r ozzy was not used to int erpret this result as normal/abnormal . [facility] WorthGjaxpeiADBKMPZSOO1327-07-51 06:44:00 Test Item Value Reference Range Interpretation Comments Lymphocytes (test code = Lymphocytes) 21.3 20.0-40.0 [facility] WorthKinztmeVDIDMBYLYE5116-66-34 06:44:00 Test Item Value Reference Range Interpretation Comments Monocytes (test code = Monocytes) 2.7 2.0-12.0 [facility] WorthZrmnzlvEDJSZBDCBU0770-28-46 06:44:00 Test Item Value Reference Range Interpretation Comments MPV (test code = MPV) 9.5 7.4-10.4 [facility] WorthVounxmoFFPNLSUJUM1762-73-06 06:44:00 Test Item Value Reference Range Interpretation Comments RDW (test code = RDW) 17.8 11.5-14.5 [facility] WorthEdsgbhyBIRDHGQXYJ5837-14-30 06:44:00 Test Item Value Reference Range Interpretation Comments MCV (test code = MCV) 73.2 80.0-98.0 [facility] WorthAvgjhrrBQZPPCQCCR3137-90-97 06:44:00 Test Item Value Reference Range Interpretation Comments MCH (test code = MCH) 21.9 pg 27.0-31.0 [facility] WorthAowtdeyKBHSTWKSXZ3483-44-07 06:44:00 Test Item Value Reference Range Interpretation Comments Hct (test code = Hct) 27.2 36.0-48.0 [facility] WorthCemjvjvXHBLEMXDEV0201-83-83 06:44:00 Test Item Value Reference Range Interpretation Comments MCHC (test code = MCHC) 29.9 32.0-36.0 [facility] WorthMiorjovDCDAVYCFEK8066-75-10 06:44:00 Test Item Value Reference Range Interpretation Comments Platelet (test code = Platelet) 400 133-450 [facility] WorthWgzalrdZTXWEXDGIF8399-04-14 06:44:00 Test Item Value Reference Range Interpretation Comments WBC (test code = WBC) 12.4 3.7-10.4 [facility] WorthQrfradfHFWPNNOZAW3739-90-94 06:44:00 Test Item Value Reference Range Interpretation Comments RBC (test code = RBC) 3.72 4.20-5.40 [facility] WorthNbzwgovEHQYIICMFM3695-40-26 06:44:00 Test Item Value Reference Range Interpretation Comments Hgb (test code = Hgb) 8.1 12.0-16.0 [facility] WorthRrgbyviXUCJQVNTLU2068-29-36 06:44:00 Test Item Value Reference Range Interpretation Comments PTT (test code = PTT) 27.2 s 22.9-35.8 [facility] WorthVqcfxulKGXDRFFGMG3930-71-70 06:44:00 Test Item Value Reference Range Interpretation Comments PT (test code = PT) 14.7 s 12.0-14.7 [facility] WorthWmayyedYXXWOIZNOJ1941-47-01 06:44:00 Test Item Value Reference Range Interpretation Comments INR (test code = INR) 1.12 0.85-1.17 [facility] [employer] CBUBNWX6825-27-15 06:44:00 Test Item Value Reference Range Interpretation Comments Antibody Scrn (test Negative (02/13/16 1:44 code = Antibody Scrn) AM) [facility] [employer] QLDGFIT2220-76-73 06:44:00 Test Item Value Reference Range Interpretation Comments ABO/Rh (test code = ABO/Rh) A POS [employer]2016-07-03 06:44:00 Test Item Value Reference Range Interpretation Comments CK MB Index (test 1.6 See_Comment [Automate d message] The code = CK MB Index) [facility] generated this result transmit gaye reference range : <=2.5. The reference range was not used to interpr et this result as satish l/abnormal. [employer]2016-07-03 06:44:00 Test Item Value Reference Range Interpretation Comments CK MB (test code = CK MB) 0.9 0.5-3.6 [employer]2016-07-03 06:44:00 Test Item Value Reference Range Interpretation Comments Total CK (test code = Total CK) 57 12-191 [facility]2016-07-03 06:44:00 Test Item Value Reference Range Interpretation Comments Troponin-I (test code no gt See_Comment [Auto mated message] The = Troponin-I) system which g enerated this result transmit gaye reference range : <=0.40. The reference r ozzy was not used to interpr et this result as satish l/abnormal. [facility] [id number] 06:44:00 Test Item Value Reference Range Interpretation Comments Albumin Lvl (test code = Albumin Lvl) 3.5 3.5-5.0 [facility]2016-07-03 06:44:00 Test Item Value Reference Range Interpretation Comments Total Protein (test code = Total 7.0 6.4-8.4 Protein) [facility] DRUGW7632-12-25 06:44:00 Test Item Value Reference Range Interpretation Comments ALT (test code = ALT) 19 See_Comment [Auto mated message] The system which ge nerated this result transmit gaye reference range : <=65. The reference range was not used to interpr et this result as satish l/abnormal. [facility]2016-07-03 06:44:00 Test Item Value Reference Range Interpretation Comments AST (test code = AST) 10 See_Comment [Auto mated message] The system which ge nerated this result transmit gaye reference range : <=37. The reference range was not used to interpr et this result as satish l/abnormal. [place] 779426-07-03 06:44:00 Test Item Value Reference Range Interpretation Comments Alk Phos (test code = Alk Phos) 79 39-136 [facility]2016-07-03 06:44:00 Test Item Value Reference Range Interpretation Comments Bili Total (test code = Bili Total) 0.4 0.2-1.3 [place] 779426-07-03 06:44:00 Test Item Value Reference Range Interpretation Comments Bili Direct (test code 0.1 See_Comment [Aut omated message] The = Bili Direct) system which generated this result tra nsmitted reference range : <=0.3. The reference r ozzy was not used to int erpret this result as satish l/abnormal. [facility]2016-07-03 06:44:00 Test Item Value Reference Range Interpretation Comments Globulin (test code = Globulin) 3.5 2.0-4.0 [facility]2016-07-03 06:44:00 Test Item Value Reference Range Interpretation Comments A/G Ratio (test code = A/G Ratio) 1.0 0.7-1.6 [facility]2016-07-03 06:44:00 Test Item Value Reference Range Interpretation Comments Bili Indirect (test 0.3 See_Comment [Automa gaye message] The code = Bili Indirect) system which generated this result tra nsmitted reference range : <=1.0. The reference r ozzy was not used to int erpret this result as normal/abnormal . [facility]2016-07-03 06:44:00 Test Item Value Reference Range Interpretation Comments eGFR (test code = eGFR) 107 [facility]2016-07-03 06:44:00 Test Item Value Reference Range Interpretation Comments BUN (test code = BUN) 8 7-22 [facility]2016-07-03 06:44:00 Test Item Value Reference Range Interpretation Comments Glucose Lvl (test code = Glucose Lvl) 91 70-99 [facility]2016-07-03 06:44:00 Test Item Value Reference Range Interpretation Comments Sodium Lvl (test code = Sodium Lvl) 138 135-145 [facility]2016-07-03 06:44:00 Test Item Value Reference Range Interpretation Comments Creatinine Lvl (test code = Creatinine 0.70 0.50-1.40 Lvl) [facility]2016-07-03 06:44:00 Test Item Value Reference Range Interpretation Comments Potassium Lvl (test code = Potassium 3.3 3.5-5.1 Lvl) [facility]2016-07-03 06:44:00 Test Item Value Reference Range Interpretation Comments CO2 (test code = CO2) 25 24-32 [facility]2016-07-03 06:44:00 Test Item Value Reference Range Interpretation Comments Chloride Lvl (test code = Chloride Lvl) 106 95-109 [facility]2016-07-03 06:44:00 Test Item Value Reference Range Interpretation Comments Calcium Lvl (test code = Calcium Lvl) 8.1 8.5-10.5 [facility]2016-07-03 06:44:00 Test Item Value Reference Range Interpretation Comments AGAP (test code = AGAP) 10.3 10.0-20.0 [facility]2016-07-03 06:44:00 Test Item Value Reference Range Interpretation Comments Magnesium Lvl (test code = Magnesium 2.2 1.8-2.4 Lvl) [facility] 06:44:00 Test Item Value Reference Range Interpretation Comments S Preg (test code = S Negative *NA*(02/13/16 Preg) 1:44 AM) [facility] WorthPherfucEUYYGWRALE8119-68-76 06:44:00 Test Item Value Reference Range Interpretation Comments Basophils (test code = 0.1 See_Comment [Aut omated message] The Basophils) system which ge nerated this result tra nsmitted reference range : <=1.0. The reference r ozzy was not used to int erpret this result as normal/abnormal . [facility] WorthHlnuqgjNNCECKEGBJ7131-10-85 06:44:00 Test Item Value Reference Range Interpretation Comments Monocytes # (test code 0.3 See_Comment [Aut omated message] The = Monocytes #) system which generated this result tra nsmitted reference range : <=0.8. The reference r ozzy was not used to int erpret this result as normal/abnormal . [facility] WorthJojfwjcWDZDXHLLAV2321-47-72 06:44:00 Test Item Value Reference Range Interpretation Comments Eosinophils # (test code 0.1 See_Comment [A utomated message] The = Eosinophils #) system whic h generated this result tra nsmitted reference range : <=0.5. The reference r ozzy was not used to int erpret this result as normal/abnormal . [facility] WorthGvteoviEOWIDDPBUL2730-77-61 06:44:00 Test Item Value Reference Range Interpretation Comments Segs-Bands # (test code = Segs-Bands #) 9.3 1.5-8.1 [facility] WorthNpluinjTFTTTIPDIN0723-78-06 06:44:00 Test Item Value Reference Range Interpretation Comments Lymphocytes # (test code = Lymphocytes 2.6 1.0-5.5 #) [facility] WorthVtzxtcmLDBBTDGAEL6610-27-09 06:44:00 Test Item Value Reference Range Interpretation Comments Basophils # (test code 0.0 See_Comment [Aut omated message] The = Basophils #) system which generated this result tra nsmitted reference range : <=0.2. The reference r ozzy was not used to int erpret this result as normal/abnormal . [facility] WorthQkpbakaBLQIMKWORX9702-74-43 06:44:00 Test Item Value Reference Range Interpretation Comments Microcyte (test code = 1+ *ABN*(02/13/16 1:44 Microcyte) AM) [facility] WorthHkxcsuzBSTAICVXRR4752-14-73 06:44:00 Test Item Value Reference Range Interpretation Comments Giant Plt (test code Moderate *ABN*(02/13/16 = Giant Plt) 1:44 AM) [facility] WorthTlfvjxjSKIYFIWHEC2870-13-42 06:44:00 Test Item Value Reference Range Interpretation Comments Segs (test code = Segs) 75.2 45.0-75.0 [facility] WorthGzxxibzMZAOCMVOFT3663-51-57 06:44:00 Test Item Value Reference Range Interpretation Comments Hypochrom (test code = 1+ (02/13/16 1:44 AM) Hypochrom) [facility] WorthWgocolvYBHOCBBWKP1670-05-39 06:44:00 Test Item Value Reference Range Interpretation Comments Eosinophils (test code = 0.7 See_Comment [A utomated message] The Eosinophils) system which ge nerated this result tra nsmitted reference range : <=4.0. The reference r ozzy was not used to int erpret this result as normal/abnormal . [facility] WorthSzubsrwGDCPKXHAUV6002-20-86 06:44:00 Test Item Value Reference Range Interpretation Comments Lymphocytes (test code = Lymphocytes) 21.3 20.0-40.0 [facility] WorthWbdahpbCJUJBBGVOH9210-47-79 06:44:00 Test Item Value Reference Range Interpretation Comments Monocytes (test code = Monocytes) 2.7 2.0-12.0 [facility] WorthCanzmjcPEEFMWQHBE9057-93-16 06:44:00 Test Item Value Reference Range Interpretation Comments MPV (test code = MPV) 9.5 7.4-10.4 [facility] WorthLftiuyrCXAXQQJAXN7414-00-97 06:44:00 Test Item Value Reference Range Interpretation Comments RDW (test code = RDW) 17.8 11.5-14.5 [facility] WorthQqhwfjwQUQAAVQGBU1412-16-17 06:44:00 Test Item Value Reference Range Interpretation Comments MCV (test code = MCV) 73.2 80.0-98.0 [facility] WorthWavfmjgQFLAKSGDMC3333-84-08 06:44:00 Test Item Value Reference Range Interpretation Comments MCH (test code = MCH) 21.9 pg 27.0-31.0 [facility] WorthCwqdnffFGMSPYQDEY3608-25-92 06:44:00 Test Item Value Reference Range Interpretation Comments Hct (test code = Hct) 27.2 36.0-48.0 [facility] WorthAbhudirIXELUYJEWG0419-62-72 06:44:00 Test Item Value Reference Range Interpretation Comments MCHC (test code = MCHC) 29.9 32.0-36.0 [facility] WorthRgdgimdKPVDVHWJOC2267-43-93 06:44:00 Test Item Value Reference Range Interpretation Comments Platelet (test code = Platelet) 400 133-450 [facility] WorthMzzamraLWZPOSHOVF1516-10-92 06:44:00 Test Item Value Reference Range Interpretation Comments WBC (test code = WBC) 12.4 3.7-10.4 [facility] WorthFxzzzqtDCERBXJXYO2254-54-96 06:44:00 Test Item Value Reference Range Interpretation Comments RBC (test code = RBC) 3.72 4.20-5.40 [facility]AwdbzxjZLGLNHYNQW6307-07-57 06:44:00 Test Item Value Reference Range Interpretation Comments Hgb (test code = Hgb) 8.1 12.0-16.0 [facility] RjhqxusSZKFXHORUD7617-73-71 06:44:00 Test Item Value Reference Range Interpretation Comments PTT (test code = PTT) 27.2 s 22.9-35.8 [facility] LabsZaqvqhwDSZCKNKZLX3052-43-87 06:44:00 Test Item Value Reference Range Interpretation Comments PT (test code = PT) 14.7 s 12.0-14.7 [facility] LabsKekvbyhHUMSFPWTRA1211-58-55 06:44:00 Test Item Value Reference Range Interpretation Comments INR (test code = INR) 1.12 0.85-1.17 [employer] QNURJIX3009-44-23 06:44:00 Test Item Value Reference Range Interpretation Comments Antibody Scrn (test Negative (02/13/16 1:44 code = Antibody Scrn) AM) [employer] MJUOEUS8320-38-69 06:44:00 Test Item Value Reference Range Interpretation Comments ABO/Rh (test code = ABO/Rh) A POS [employer]2016-07-03 06:44:00 Test Item Value Reference Range Interpretation Comments CK MB Index (test 1.6 See_Comment [Automate d message] The code = CK MB Index) [facility] generated this result transmit gaye reference range : <=2.5. The reference range was not used to interpr et this result as satish l/abnormal. [employer]2016-07-03 06:44:00 Test Item Value Reference Range Interpretation Comments CK MB (test code = CK MB) 0.9 0.5-3.6 [employer]2016-07-03 06:44:00 Test Item Value Reference Range Interpretation Comments Total CK (test code = Total CK) 57 12-191 [facility]2016-07-03 06:44:00 Test Item Value Reference Range Interpretation Comments Troponin-I (test code no gt See_Comment [Auto mated message] The = Troponin-I) system which g enerated this result transmit gaye reference range : <=0.40. The reference r ozzy was not used to interpr et this result as satish l/abnormal. [facility]2016-07-03 06:44:00 Test Item Value Reference Range Interpretation Comments Albumin Lvl (test code = Albumin Lvl) 3.5 3.5-5.0 [place] 779426-07-03 06:44:00 Test Item Value Reference Range Interpretation Comments Total Protein (test code = Total 7.0 6.4-8.4 Protein) [place] 779426-07-03 06:44:00 Test Item Value Reference Range Interpretation Comments ALT (test code = ALT) 19 See_Comment [Auto mated message] The system which ge nerated this result transmit gaye reference range : <=65. The reference range was not used to interpr et this result as satish l/abnormal. [place] 779426-07-03 06:44:00 Test Item Value Reference Range Interpretation Comments AST (test code = AST) 10 See_Comment [Auto mated message] The system which ge nerated this result transmit gaye reference range : <=37. The reference range was not used to interpr et this result as satish l/abnormal. [facility]2016-07-03 06:44:00 Test Item Value Reference Range Interpretation Comments Alk Phos (test code = Alk Phos) 79 39-136 [facility]2016-07-03 06:44:00 Test Item Value Reference Range Interpretation Comments Bili Total (test code = Bili Total) 0.4 0.2-1.3 [facility]2016-07-03 06:44:00 Test Item Value Reference Range Interpretation Comments Bili Direct (test code 0.1 See_Comment [Aut omated message] The = Bili Direct) system which generated this result tra nsmitted reference range : <=0.3. The reference r ozzy was not used to int erpret this result as satish l/abnormal. [facility]2016-07-03 06:44:00 Test Item Value Reference Range Interpretation Comments Globulin (test code = Globulin) 3.5 2.0-4.0 [facility]2016-07-03 06:44:00 Test Item Value Reference Range Interpretation Comments A/G Ratio (test code = A/G Ratio) 1.0 0.7-1.6 [facility]2016-07-03 06:44:00 Test Item Value Reference Range Interpretation Comments Bili Indirect (test 0.3 See_Comment [Automa gaye message] The code = Bili Indirect) system which generated this result tra nsmitted reference range : <=1.0. The reference r ozzy was not used to int erpret this result as normal/abnormal . [facility]2016-07-03 06:44:00 Test Item Value Reference Range Interpretation Comments eGFR (test code = eGFR) 107 [facility]2016-07-03 06:44:00 Test Item Value Reference Range Interpretation Comments BUN (test code = BUN) 8 7-22 [facility]2016-07-03 06:44:00 Test Item Value Reference Range Interpretation Comments Glucose Lvl (test code = Glucose Lvl) 91 70-99 [facility]2016-07-03 06:44:00 Test Item Value Reference Range Interpretation Comments Sodium Lvl (test code = Sodium Lvl) 138 135-145 [facility]2016-07-03 06:44:00 Test Item Value Reference Range Interpretation Comments Creatinine Lvl (test code = Creatinine 0.70 0.50-1.40 Lvl) [facility]2016-07-03 06:44:00 Test Item Value Reference Range Interpretation Comments Potassium Lvl (test code = Potassium 3.3 3.5-5.1 Lvl) [facility]2016-07-03 06:44:00 Test Item Value Reference Range Interpretation Comments CO2 (test code = CO2) 25 24-32 [facility]2016-07-03 06:44:00 Test Item Value Reference Range Interpretation Comments Chloride Lvl (test code = Chloride Lvl) 106 95-109 [facility]2016-07-03 06:44:00 Test Item Value Reference Range Interpretation Comments Calcium Lvl (test code = Calcium Lvl) 8.1 8.5-10.5 [place] 779426-07-03 06:44:00 Test Item Value Reference Range Interpretation Comments AGAP (test code = AGAP) 10.3 10.0-20.0 [facility]2016-07-03 06:44:00 Test Item Value Reference Range Interpretation Comments Magnesium Lvl (test code = Magnesium 2.2 1.8-2.4 Lvl) [place] 75304016-07-03 06:44:00 Test Item Value Reference Range Interpretation Comments S Preg (test code = S Negative *NA*(02/13/16 Preg) 1:44 AM) [facility] WorthTtkvpvgJBBMBAJKUD7120-21-88 06:44:00 Test Item Value Reference Range Interpretation Comments Basophils (test code = 0.1 See_Comment [Aut omated message] The Basophils) system which ge nerated this result tra nsmitted reference range : <=1.0. The reference r ozzy was not used to int erpret this result as normal/abnormal . [facility] WorthYmyzlxfDFQMYQUZIN4815-78-03 06:44:00 Test Item Value Reference Range Interpretation Comments Monocytes # (test code 0.3 See_Comment [Aut omated message] The = Monocytes #) system which generated this result tra nsmitted reference range : <=0.8. The reference r ozzy was not used to int erpret this result as normal/abnormal . [facility] WorthPnrnytoUDPNRITOVL6704-86-17 06:44:00 Test Item Value Reference Range Interpretation Comments Eosinophils # (test code 0.1 See_Comment [A utomated message] The = Eosinophils #) system whic h generated this result tra nsmitted reference range : <=0.5. The reference r ozzy was not used to int erpret this result as normal/abnormal . [facility] WorthLlothxdIIFRTXGEDK2416-67-08 06:44:00 Test Item Value Reference Range Interpretation Comments Segs-Bands # (test code = Segs-Bands #) 9.3 1.5-8.1 [facility] WorthSzgggheYDWNRGXKAW6489-33-39 06:44:00 Test Item Value Reference Range Interpretation Comments Lymphocytes # (test code = Lymphocytes 2.6 1.0-5.5 #) [facility] WorthUmrxhglYZDJWCXCZM0102-13-76 06:44:00 Test Item Value Reference Range Interpretation Comments Basophils # (test code 0.0 See_Comment [Aut omated message] The = Basophils #) system which generated this result tra nsmitted reference range : <=0.2. The reference r ozzy was not used to int erpret this result as normal/abnormal . [facility] WorthHlcoyrjYPWWWEOZRS2242-71-48 06:44:00 Test Item Value Reference Range Interpretation Comments Microcyte (test code = 1+ *ABN*(02/13/16 1:44 Microcyte) AM) [facility] WorthWhjmlvvSQTUBHOTZN3415-62-03 06:44:00 Test Item Value Reference Range Interpretation Comments Giant Plt (test code Moderate *ABN*(02/13/16 = Giant Plt) 1:44 AM) [facility] WorthUbyvusfYNWTALTUDN5181-61-84 06:44:00 Test Item Value Reference Range Interpretation Comments Segs (test code = Segs) 75.2 45.0-75.0 [facility] WorthIhshiimDEGYFDRZBJ2625-89-20 06:44:00 Test Item Value Reference Range Interpretation Comments Hypochrom (test code = 1+ (02/13/16 1:44 AM) Hypochrom) [facility] WorthEbqzwyiOZGMYJSOUJ0208-58-78 06:44:00 Test Item Value Reference Range Interpretation Comments Eosinophils (test code = 0.7 See_Comment [A utomated message] The Eosinophils) system which ge nerated this result tra nsmitted reference range : <=4.0. The reference r ozzy was not used to int erpret this result as normal/abnormal . [facility] WorthUaqmxhiMKVDXKMBIY9413-17-12 06:44:00 Test Item Value Reference Range Interpretation Comments Lymphocytes (test code = Lymphocytes) 21.3 20.0-40.0 [facility] WorthHbluwikBJLUGTGSSD6630-18-06 06:44:00 Test Item Value Reference Range Interpretation Comments Monocytes (test code = Monocytes) 2.7 2.0-12.0 [facility] WorthZnftojvBMZRKKLMMI5572-29-77 06:44:00 Test Item Value Reference Range Interpretation Comments MPV (test code = MPV) 9.5 7.4-10.4 [facility] WorthXyutwvbWYOZIZSBIZ8279-66-12 06:44:00 Test Item Value Reference Range Interpretation Comments RDW (test code = RDW) 17.8 11.5-14.5 [facility] WorthLgeksmeKHSUQLHPHR8569-75-49 06:44:00 Test Item Value Reference Range Interpretation Comments MCV (test code = MCV) 73.2 80.0-98.0 [facility] WorthKtperczUKPGDNLBPA9652-88-11 06:44:00 Test Item Value Reference Range Interpretation Comments MCH (test code = MCH) 21.9 pg 27.0-31.0 [facility]QvbtbczGDFRIVSARN4398-62-46 06:44:00 Test Item Value Reference Range Interpretation Comments Hct (test code = Hct) 27.2 36.0-48.0 [facility] HospitalRmwrbzxEKQRDBKOWO8174-39-47 06:44:00 Test Item Value Reference Range Interpretation Comments MCHC (test code = MCHC) 29.9 32.0-36.0 [facility] HospitalEkjequbMOIWRGNRDQ2622-11-59 06:44:00 Test Item Value Reference Range Interpretation Comments Platelet (test code = Platelet) 400 133-450 [facility] HospitalWtuakzxJYMQFOGHCE7238-11-82 06:44:00 Test Item Value Reference Range Interpretation Comments WBC (test code = WBC) 12.4 3.7-10.4 [facility] HospitalQbcknnjOVGFVSIOCM3695-66-94 06:44:00 Test Item Value Reference Range Interpretation Comments RBC (test code = RBC) 3.72 4.20-5.40 [facility] WorthIzmiqonBQAUAYCZJV9165-87-34 06:44:00 Test Item Value Reference Range Interpretation Comments Hgb (test code = Hgb) 8.1 12.0-16.0 [facility]WscwilwICFPOIQTMF3880-03-72 06:44:00 Test Item Value Reference Range Interpretation Comments PTT (test code = PTT) 27.2 s 22.9-35.8 [facility] HospitalHykiiaxMGCNEBKDFP9071-66-64 06:44:00 Test Item Value Reference Range Interpretation Comments PT (test code = PT) 14.7 s 12.0-14.7 [facility] WorthZgslghfFSYLBPRYBB5543-85-41 06:44:00 Test Item Value Reference Range Interpretation Comments INR (test code = INR) 1.12 0.85-1.17 [facility] [employer] TCUNHUK2675-77-45 06:44:00 Test Item Value Reference Range Interpretation Comments Antibody Scrn (test Negative (02/13/16 1:44 code = Antibody Scrn) AM) [facility] [employer] FWMTIXQ1098-59-94 06:44:00 Test Item Value Reference Range Interpretation Comments ABO/Rh (test code = ABO/Rh) A POS [facility]annCARDIAC ZSANKMQ0508-10-37 06:44:00 Test Item Value Reference Range Interpretation Comments CK MB Index (test 1.6 See_Comment [Automate d message] The code = CK MB Index) [facility] generated this result transmit gaye reference range : <=2.5. The reference range was not used to interpr et this result as satish l/abnormal. [facility] [employer] NRTCCPZ2699-25-39 06:44:00 Test Item Value Reference Range Interpretation Comments CK MB (test code = CK MB) 0.9 0.5-3.6 [facility] HospitalFashionFreax GmbH RDMFWXX8485-34-46 06:44:00 Test Item Value Reference Range Interpretation Comments Total CK (test code = Total CK) 57 12-191 [facility] HospitalFashionFreax GmbH YFMYBLR4205-32-86 06:44:00 Test Item Value Reference Range Interpretation Comments Troponin-I (test code no gt See_Comment [Auto mated message] The = Troponin-I) system which g enerated this result transmit gaye reference range : <=0.40. The reference r ozzy was not used to interpr et this result as satish l/abnormal. [facility] [employer] VYQQX4994-84-44 06:44:00 Test Item Value Reference Range Interpretation Comments Albumin Lvl (test code = Albumin Lvl) 3.5 3.5-5.0 [facility] [employer] [id number] 06:44:00 Test Item Value Reference Range Interpretation Comments Total Protein (test code = Total 7.0 6.4-8.4 Protein) [facility] [employer] [id number] 06:44:00 Test Item Value Reference Range Interpretation Comments ALT (test code = ALT) 19 See_Comment [Auto mated message] The system which ge nerated this result transmit gaye reference range : <=65. The reference range was not used to interpr et this result as satish l/abnormal. [place]2016-07-03 06:44:00 Test Item Value Reference Range Interpretation Comments AST (test code = AST) 10 See_Comment [Auto mated message] The system which ge nerated this result transmit gaye reference range : <=37. The reference range was not used to interpr et this result as satish l/abnormal. [place]2016-07-03 06:44:00 Test Item Value Reference Range Interpretation Comments Alk Phos (test code = Alk Phos) 79 39-136 [facility] [employer] [id number] 06:44:00 Test Item Value Reference Range Interpretation Comments Bili Total (test code = Bili Total) 0.4 0.2-1.3 [facility]2016-07-03 06:44:00 Test Item Value Reference Range Interpretation Comments Bili Direct (test code 0.1 See_Comment [Aut omated message] The = Bili Direct) system which generated this result tra nsmitted reference range : <=0.3. The reference r ozzy was not used to int erpret this result as satish l/abnormal. [facility]2016-07-03 06:44:00 Test Item Value Reference Range Interpretation Comments Globulin (test code = Globulin) 3.5 2.0-4.0 [facility]2016-07-03 06:44:00 Test Item Value Reference Range Interpretation Comments A/G Ratio (test code = A/G Ratio) 1.0 0.7-1.6 [facility]2016-07-03 06:44:00 Test Item Value Reference Range Interpretation Comments Bili Indirect (test 0.3 See_Comment [Automa gaye message] The code = Bili Indirect) system which generated this result tra nsmitted reference range : <=1.0. The reference r ozzy was not used to int erpret this result as normal/abnormal . [facility]2016-07-03 06:44:00 Test Item Value Reference Range Interpretation Comments eGFR (test code = eGFR) 107 [facility]2016-07-03 06:44:00 Test Item Value Reference Range Interpretation Comments BUN (test code = BUN) 8 7-22 [facility]2016-07-03 06:44:00 Test Item Value Reference Range Interpretation Comments Glucose Lvl (test code = Glucose Lvl) 91 70-99 [facility]2016-07-03 06:44:00 Test Item Value Reference Range Interpretation Comments Sodium Lvl (test code = Sodium Lvl) 138 135-145 [facility]2016-07-03 06:44:00 Test Item Value Reference Range Interpretation Comments Creatinine Lvl (test code = Creatinine 0.70 0.50-1.40 Lvl) [facility]2016-07-03 06:44:00 Test Item Value Reference Range Interpretation Comments Potassium Lvl (test code = Potassium 3.3 3.5-5.1 Lvl) [facility]2016-07-03 06:44:00 Test Item Value Reference Range Interpretation Comments CO2 (test code = CO2) 25 24-32 [facility]2016-07-03 06:44:00 Test Item Value Reference Range Interpretation Comments Chloride Lvl (test code = Chloride Lvl) 106 95-109 [facility]2016-07-03 06:44:00 Test Item Value Reference Range Interpretation Comments Calcium Lvl (test code = Calcium Lvl) 8.1 8.5-10.5 [facility]2016-07-03 06:44:00 Test Item Value Reference Range Interpretation Comments AGAP (test code = AGAP) 10.3 10.0-20.0 [facility]2016-07-03 06:44:00 Test Item Value Reference Range Interpretation Comments Magnesium Lvl (test code = Magnesium 2.2 1.8-2.4 Lvl) [place] 75304016-07-03 06:44:00 Test Item Value Reference Range Interpretation Comments S Preg (test code = S Negative *NA*(02/13/16 Preg) 1:44 AM) [facility] WorthYrisrwbLMWMGNTRGB6763-56-66 06:44:00 Test Item Value Reference Range Interpretation Comments Basophils (test code = 0.1 See_Comment [Aut omated message] The Basophils) system which ge nerated this result tra nsmitted reference range : <=1.0. The reference r ozzy was not used to int erpret this result as normal/abnormal . [facility] WorthBlvvilcITEKMSEKLW1939-37-18 06:44:00 Test Item Value Reference Range Interpretation Comments Monocytes # (test code 0.3 See_Comment [Aut omated message] The = Monocytes #) system which generated this result tra nsmitted reference range : <=0.8. The reference r ozzy was not used to int erpret this result as normal/abnormal . [facility] WorthCftqzbhPOQWYYNYTR6276-01-81 06:44:00 Test Item Value Reference Range Interpretation Comments Eosinophils # (test code 0.1 See_Comment [A utomated message] The = Eosinophils #) system whic h generated this result tra nsmitted reference range : <=0.5. The reference r ozzy was not used to int erpret this result as normal/abnormal . [facility] WorthPepsjaiHNVMCLDLMO8210-86-57 06:44:00 Test Item Value Reference Range Interpretation Comments Segs-Bands # (test code = Segs-Bands #) 9.3 1.5-8.1 [facility] WorthZetfqkpZVCQZWWCGL6875-84-08 06:44:00 Test Item Value Reference Range Interpretation Comments Lymphocytes # (test code = Lymphocytes 2.6 1.0-5.5 #) [facility] WorthBveboyfJGGLWDHNHM6715-94-52 06:44:00 Test Item Value Reference Range Interpretation Comments Basophils # (test code 0.0 See_Comment [Aut omated message] The = Basophils #) system which generated this result tra nsmitted reference range : <=0.2. The reference r ozzy was not used to int erpret this result as normal/abnormal . [facility] WorthYkhcxfyURJKVSLVFW0954-09-20 06:44:00 Test Item Value Reference Range Interpretation Comments Microcyte (test code = 1+ *ABN*(02/13/16 1:44 Microcyte) AM) [facility] WorthIalkqvoALSXPLOVVM4371-16-20 06:44:00 Test Item Value Reference Range Interpretation Comments Giant Plt (test code Moderate *ABN*(02/13/16 = Giant Plt) 1:44 AM) [facility] WorthVzemwgbXZCZDIOVKU0242-49-13 06:44:00 Test Item Value Reference Range Interpretation Comments Segs (test code = Segs) 75.2 45.0-75.0 [facility] WorthVusxpwqVIFMBQWGTA0766-73-47 06:44:00 Test Item Value Reference Range Interpretation Comments Hypochrom (test code = 1+ (02/13/16 1:44 AM) Hypochrom) [facility] WorthPjabtcpMJQXGEEZGT7289-24-12 06:44:00 Test Item Value Reference Range Interpretation Comments Eosinophils (test code = 0.7 See_Comment [A utomated message] The Eosinophils) system which ge nerated this result tra nsmitted reference range : <=4.0. The reference r ozzy was not used to int erpret this result as normal/abnormal . [facility] WorthGoatoxxDUSXWAQYYV0838-65-63 06:44:00 Test Item Value Reference Range Interpretation Comments Lymphocytes (test code = Lymphocytes) 21.3 20.0-40.0 [facility] WorthEwwxrvjEERFJITHZX3443-69-83 06:44:00 Test Item Value Reference Range Interpretation Comments Monocytes (test code = Monocytes) 2.7 2.0-12.0 [facility] WorthFrornvrXDKSICRVOC4856-84-87 06:44:00 Test Item Value Reference Range Interpretation Comments MPV (test code = MPV) 9.5 7.4-10.4 [facility] WorthVtwbgwiSKQUNAEMKE7431-77-99 06:44:00 Test Item Value Reference Range Interpretation Comments RDW (test code = RDW) 17.8 11.5-14.5 [facility] WorthFuiostbMMKWFQTEHG6479-93-91 06:44:00 Test Item Value Reference Range Interpretation Comments MCV (test code = MCV) 73.2 80.0-98.0 [facility] WorthUomkyveOVNCFWLUTX7767-99-38 06:44:00 Test Item Value Reference Range Interpretation Comments MCH (test code = MCH) 21.9 pg 27.0-31.0 [facility] WorthDfnmvljPVRSWRKIAH1726-21-51 06:44:00 Test Item Value Reference Range Interpretation Comments Hct (test code = Hct) 27.2 36.0-48.0 [facility] WorthGswnjaoWHEUEUDKOJ7280-75-04 06:44:00 Test Item Value Reference Range Interpretation Comments MCHC (test code = MCHC) 29.9 32.0-36.0 [facility] WorthGufhsgtEYYFNXQJQR8657-08-68 06:44:00 Test Item Value Reference Range Interpretation Comments Platelet (test code = Platelet) 400 133-450 [facility] WorthXgtkacoUKKTEIGEQI8462-41-52 06:44:00 Test Item Value Reference Range Interpretation Comments WBC (test code = WBC) 12.4 3.7-10.4 [facility] WorthAiyfnwnSBUIAFOQGT7111-81-26 06:44:00 Test Item Value Reference Range Interpretation Comments RBC (test code = RBC) 3.72 4.20-5.40 [facility] WorthHrjypceYNUMPIEMLZ9375-89-22 06:44:00 Test Item Value Reference Range Interpretation Comments Hgb (test code = Hgb) 8.1 12.0-16.0 [facility] WorthNewfccuBSFSXRERBZ0473-16-85 06:44:00 Test Item Value Reference Range Interpretation Comments PTT (test code = PTT) 27.2 s 22.9-35.8 [facility] WorthOtepkgfAUKTFHHSNF2875-74-22 06:44:00 Test Item Value Reference Range Interpretation Comments PT (test code = PT) 14.7 s 12.0-14.7 [facility] WorthMpknashNPUBBFEUTW3842-55-19 06:44:00 Test Item Value Reference Range Interpretation Comments INR (test code = INR) 1.12 0.85-1.17 [facility] WorthOaltgdwDADQZCAYAJ7134-70-48 06:44:00 Test Item Value Reference Range Interpretation Comments Eosinophils # (test code 0.1 See_Comment [A utomated message] The = Eosinophils #) system whic h generated this result tra nsmitted reference range : <=0.5. The reference r ozzy was not used to int erpret this result as normal/abnormal . [facility] WorthTqfbkvfELLBHGGMPI1592-19-84 06:44:00 Test Item Value Reference Range Interpretation Comments Segs-Bands # (test code = Segs-Bands #) 9.3 1.5-8.1 [facility] WorthTdryabkSUBFODFLSH4630-48-93 06:44:00 Test Item Value Reference Range Interpretation Comments Lymphocytes # (test code = Lymphocytes 2.6 1.0-5.5 #) [facility] WorthTmzuiqvCXIFKECGXP4831-17-99 06:44:00 Test Item Value Reference Range Interpretation Comments Basophils # (test code 0.0 See_Comment [Aut omated message] The = Basophils #) system which generated this result tra nsmitted reference range : <=0.2. The reference r ozzy was not used to int erpret this result as normal/abnormal . [facility] WorthWimefumZYBHDHEBRE7468-09-06 06:44:00 Test Item Value Reference Range Interpretation Comments Microcyte (test code = 1+ *ABN*(02/13/16 1:44 Microcyte) AM) [facility] WorthWpvsglfQBDGNQEHFT9299-97-20 06:44:00 Test Item Value Reference Range Interpretation Comments Giant Plt (test code Moderate *ABN*(02/13/16 = Giant Plt) 1:44 AM) [facility] WorthZxvrivwDIMPTXUOGQ1695-75-97 06:44:00 Test Item Value Reference Range Interpretation Comments Segs (test code = Segs) 75.2 45.0-75.0 [facility] WorthRnjjxpsJMOATXXCQL3445-56-74 06:44:00 Test Item Value Reference Range Interpretation Comments Hypochrom (test code = 1+ (02/13/16 1:44 AM) Hypochrom) [facility] WorthHvszkxlARPWBIYPIR4761-91-00 06:44:00 Test Item Value Reference Range Interpretation Comments Eosinophils (test code = 0.7 See_Comment [A utomated message] The Eosinophils) system which ge nerated this result tra nsmitted reference range : <=4.0. The reference r ozzy was not used to int erpret this result as normal/abnormal . [facility] WorthHbhmtktHLMGOISEGA0234-62-28 06:44:00 Test Item Value Reference Range Interpretation Comments Lymphocytes (test code = Lymphocytes) 21.3 20.0-40.0 [facility] WorthQfzixunAJEZMSQVAA0590-09-67 06:44:00 Test Item Value Reference Range Interpretation Comments Monocytes (test code = Monocytes) 2.7 2.0-12.0 [facility] WorthBhjigmpJLFCGLIMYZ1209-87-89 06:44:00 Test Item Value Reference Range Interpretation Comments MPV (test code = MPV) 9.5 7.4-10.4 [facility] WorthYkqlvltGWIXJVUCFO8995-27-67 06:44:00 Test Item Value Reference Range Interpretation Comments RDW (test code = RDW) 17.8 11.5-14.5 [facility] WorthOussorqIODMBJZJWJ2269-60-96 06:44:00 Test Item Value Reference Range Interpretation Comments MCV (test code = MCV) 73.2 80.0-98.0 [facility] WorthXzcuzjlAFVGMIDQXM8865-09-69 06:44:00 Test Item Value Reference Range Interpretation Comments MCH (test code = MCH) 21.9 pg 27.0-31.0 [facility] WorthGsrkbeoQMUBBAIGGI2114-93-02 06:44:00 Test Item Value Reference Range Interpretation Comments Hct (test code = Hct) 27.2 36.0-48.0 [facility] WorthAqplfufKVHHXUAGJR6893-11-45 06:44:00 Test Item Value Reference Range Interpretation Comments MCHC (test code = MCHC) 29.9 32.0-36.0 [facility] WorthWhrbzdvKJNVOCCXET7790-10-11 06:44:00 Test Item Value Reference Range Interpretation Comments Platelet (test code = Platelet) 400 133-450 [facility] WorthWqmbpcjFFCJRSDCHC5116-05-03 06:44:00 Test Item Value Reference Range Interpretation Comments WBC (test code = WBC) 12.4 3.7-10.4 [facility] WorthBhghdjnPPEBSWWATP0522-30-92 06:44:00 Test Item Value Reference Range Interpretation Comments RBC (test code = RBC) 3.72 4.20-5.40 [facility] KytafbnNKPGIHMXIV7670-92-21 06:44:00 Test Item Value Reference Range Interpretation Comments Hgb (test code = Hgb) 8.1 12.0-16.0 [facility]OmynnrkDOCBRCFEBR2086-02-18 06:44:00 Test Item Value Reference Range Interpretation Comments PTT (test code = PTT) 27.2 s 22.9-35.8 [facility] IsqqayyNMQBIILHNP1188-52-22 06:44:00 Test Item Value Reference Range Interpretation Comments PT (test code = PT) 14.7 s 12.0-14.7 [facility] FtkbgvaJSKFGGWKRZ4144-64-87 06:44:00 Test Item Value Reference Range Interpretation Comments INR (test code = INR) 1.12 0.85-1.17 [facility] [employer] TMZVMOI8684-04-18 06:44:00 Test Item Value Reference Range Interpretation Comments Antibody Scrn (test Negative (02/13/16 1:44 code = Antibody Scrn) AM) [employer] HJZMEZU0381-94-27 06:44:00 Test Item Value Reference Range Interpretation Comments ABO/Rh (test code = ABO/Rh) A POS [facility] [employer]2016-07-03 06:44:00 Test Item Value Reference Range Interpretation Comments CK MB Index (test 1.6 See_Comment [Automate d message] The code = CK MB Index) [facility] generated this result transmit gaye reference range : <=2.5. The reference range was not used to interpr et this result as satish l/abnormal. [employer]2016-07-03 06:44:00 Test Item Value Reference Range Interpretation Comments CK MB (test code = CK MB) 0.9 0.5-3.6 [facility] [employer]2016-07-03 06:44:00 Test Item Value Reference Range Interpretation Comments Total CK (test code = Total CK) 57 12-191 [facility] [employer]2016-07-03 06:44:00 Test Item Value Reference Range Interpretation Comments Troponin-I (test code no gt See_Comment [Auto mated message] The = Troponin-I) system which g enerated this result transmit gaye reference range : <=0.40. The reference r ozzy was not used to interpr et this result as satish l/abnormal. [facility]2016-07-03 06:44:00 Test Item Value Reference Range Interpretation Comments Albumin Lvl (test code = Albumin Lvl) 3.5 3.5-5.0 [place] 779426-07-03 06:44:00 Test Item Value Reference Range Interpretation Comments Total Protein (test code = Total 7.0 6.4-8.4 Protein) [facility]2016-07-03 06:44:00 Test Item Value Reference Range Interpretation Comments ALT (test code = ALT) 19 See_Comment [Auto mated message] The system which ge nerated this result transmit gaye reference range : <=65. The reference range was not used to interpr et this result as satish l/abnormal. [facility]2016-07-03 06:44:00 Test Item Value Reference Range Interpretation Comments AST (test code = AST) 10 See_Comment [Auto mated message] The system which ge nerated this result transmit gaye reference range : <=37. The reference range was not used to interpr et this result as satish l/abnormal. [facility]2016-07-03 06:44:00 Test Item Value Reference Range Interpretation Comments Alk Phos (test code = Alk Phos) 79 39-136 [facility]2016-07-03 06:44:00 Test Item Value Reference Range Interpretation Comments Bili Total (test code = Bili Total) 0.4 0.2-1.3 [place] 779426-07-03 06:44:00 Test Item Value Reference Range Interpretation Comments Bili Direct (test code 0.1 See_Comment [Aut omated message] The = Bili Direct) system which generated this result tra nsmitted reference range : <=0.3. The reference r ozzy was not used to int erpret this result as satish l/abnormal. [facility]2016-07-03 06:44:00 Test Item Value Reference Range Interpretation Comments Globulin (test code = Globulin) 3.5 2.0-4.0 [facility]2016-07-03 06:44:00 Test Item Value Reference Range Interpretation Comments A/G Ratio (test code = A/G Ratio) 1.0 0.7-1.6 [facility]2016-07-03 06:44:00 Test Item Value Reference Range Interpretation Comments Bili Indirect (test 0.3 See_Comment [Automa gaye message] The code = Bili Indirect) system which generated this result tra nsmitted reference range : <=1.0. The reference r ozzy was not used to int erpret this result as normal/abnormal . [facility]2016-07-03 06:44:00 Test Item Value Reference Range Interpretation Comments eGFR (test code = eGFR) 107 [facility]2016-07-03 06:44:00 Test Item Value Reference Range Interpretation Comments BUN (test code = BUN) 8 7-22 [facility]2016-07-03 06:44:00 Test Item Value Reference Range Interpretation Comments Glucose Lvl (test code = Glucose Lvl) 91 70-99 [facility]2016-07-03 06:44:00 Test Item Value Reference Range Interpretation Comments Sodium Lvl (test code = Sodium Lvl) 138 135-145 [facility]2016-07-03 06:44:00 Test Item Value Reference Range Interpretation Comments Creatinine Lvl (test code = Creatinine 0.70 0.50-1.40 Lvl) [facility]2016-07-03 06:44:00 Test Item Value Reference Range Interpretation Comments Potassium Lvl (test code = Potassium 3.3 3.5-5.1 Lvl) [facility]2016-07-03 06:44:00 Test Item Value Reference Range Interpretation Comments CO2 (test code = CO2) 25 24-32 [facility]2016-07-03 06:44:00 Test Item Value Reference Range Interpretation Comments Chloride Lvl (test code = Chloride Lvl) 106 95-109 [facility]2016-07-03 06:44:00 Test Item Value Reference Range Interpretation Comments Calcium Lvl (test code = Calcium Lvl) 8.1 8.5-10.5 [facility]2016-07-03 06:44:00 Test Item Value Reference Range Interpretation Comments AGAP (test code = AGAP) 10.3 10.0-20.0 [facility]2016-07-03 06:44:00 Test Item Value Reference Range Interpretation Comments Magnesium Lvl (test code = Magnesium 2.2 1.8-2.4 Lvl) [id number] 06:44:00 Test Item Value Reference Range Interpretation Comments S Preg (test code = S Negative *NA*(02/13/16 Preg) 1:44 AM) [facility]bzfjkgUZPEZZFOJI6058-94-07 06:44:00 Test Item Value Reference Range Interpretation Comments Basophils (test code = 0.1 See_Comment [Aut omated message] The Basophils) system which ge nerated this result tra nsmitted reference range : <=1.0. The reference r ozzy was not used to int erpret this result as normal/abnormal . [facility] WqexlzsFBOPYMSLTJ5759-00-27 06:44:00 Test Item Value Reference Range Interpretation Comments Monocytes # (test code 0.3 See_Comment [Aut omated message] The = Monocytes #) system which generated this result tra nsmitted reference range : <=0.8. The reference r ozzy was not used to int erpret this result as normal/abnormal . [employer] [id number] 06:44:00 Test Item Value Reference Range Interpretation Comments Antibody Scrn (test Negative (02/13/16 1:44 code = Antibody Scrn) AM) [facility] [employer] [id number] 06:44:00 Test Item Value Reference Range Interpretation Comments ABO/Rh (test code = ABO/Rh) A POS [facility] [employer]2016-07-03 06:44:00 Test Item Value Reference Range Interpretation Comments CK MB Index (test 1.6 See_Comment [Automate d message] The code = CK MB Index) [facility] generated this result transmit gaye reference range : <=2.5. The reference range was not used to interpr et this result as satish l/abnormal. [employer]2016-07-03 06:44:00 Test Item Value Reference Range Interpretation Comments CK MB (test code = CK MB) 0.9 0.5-3.6 [facility] [employer]2016-07-03 06:44:00 Test Item Value Reference Range Interpretation Comments Total CK (test code = Total CK) 57 12-191 [facility] [employer]2016-07-03 06:44:00 Test Item Value Reference Range Interpretation Comments Troponin-I (test code no gt See_Comment [Auto mated message] The = Troponin-I) system which g enerated this result transmit gaye reference range : <=0.40. The reference r ozzy was not used to interpr et this result as satish l/abnormal. [facility]2016-07-03 06:44:00 Test Item Value Reference Range Interpretation Comments Albumin Lvl (test code = Albumin Lvl) 3.5 3.5-5.0 [facility]2016-07-03 06:44:00 Test Item Value Reference Range Interpretation Comments Total Protein (test code = Total 7.0 6.4-8.4 Protein) [facility]2016-07-03 06:44:00 Test Item Value Reference Range Interpretation Comments ALT (test code = ALT) 19 See_Comment [Auto mated message] The system which ge nerated this result transmit gaye reference range : <=65. The reference range was not used to interpr et this result as satish l/abnormal. [facility] [employer] [id number] 06:44:00 Test Item Value Reference Range Interpretation Comments AST (test code = AST) 10 See_Comment [Auto mated message] The system which ge nerated this result transmit gaye reference range : <=37. The reference range was not used to interpr et this result as satish l/abnormal. [facility]2016-07-03 06:44:00 Test Item Value Reference Range Interpretation Comments Alk Phos (test code = Alk Phos) 79 39-136 [facility]2016-07-03 06:44:00 Test Item Value Reference Range Interpretation Comments Bili Total (test code = Bili Total) 0.4 0.2-1.3 [facility]2016-07-03 06:44:00 Test Item Value Reference Range Interpretation Comments Bili Direct (test code 0.1 See_Comment [Aut omated message] The = Bili Direct) system which generated this result tra nsmitted reference range : <=0.3. The reference r ozzy was not used to int erpret this result as satish l/abnormal. [facility] [id number] 06:44:00 Test Item Value Reference Range Interpretation Comments Globulin (test code = Globulin) 3.5 2.0-4.0 [facility]2016-07-03 06:44:00 Test Item Value Reference Range Interpretation Comments A/G Ratio (test code = A/G Ratio) 1.0 0.7-1.6 [facility]2016-07-03 06:44:00 Test Item Value Reference Range Interpretation Comments Bili Indirect (test 0.3 See_Comment [Automa gaye message] The code = Bili Indirect) system which generated this result tra nsmitted reference range : <=1.0. The reference r ozzy was not used to int erpret this result as normal/abnormal . [facility]2016-07-03 06:44:00 Test Item Value Reference Range Interpretation Comments eGFR (test code = eGFR) 107 [facility]2016-07-03 06:44:00 Test Item Value Reference Range Interpretation Comments BUN (test code = BUN) 8 7-22 [facility]2016-07-03 06:44:00 Test Item Value Reference Range Interpretation Comments Glucose Lvl (test code = Glucose Lvl) 91 70-99 [facility]2016-07-03 06:44:00 Test Item Value Reference Range Interpretation Comments Sodium Lvl (test code = Sodium Lvl) 138 135-145 [facility]2016-07-03 06:44:00 Test Item Value Reference Range Interpretation Comments Creatinine Lvl (test code = Creatinine 0.70 0.50-1.40 Lvl) [facility]2016-07-03 06:44:00 Test Item Value Reference Range Interpretation Comments Potassium Lvl (test code = Potassium 3.3 3.5-5.1 Lvl) [facility]2016-07-03 06:44:00 Test Item Value Reference Range Interpretation Comments CO2 (test code = CO2) 25 24-32 [facility]2016-07-03 06:44:00 Test Item Value Reference Range Interpretation Comments Chloride Lvl (test code = Chloride Lvl) 106 95-109 [place] 779426-07-03 06:44:00 Test Item Value Reference Range Interpretation Comments Calcium Lvl (test code = Calcium Lvl) 8.1 8.5-10.5 [facility]2016-07-03 06:44:00 Test Item Value Reference Range Interpretation Comments AGAP (test code = AGAP) 10.3 10.0-20.0 [facility]2016-07-03 06:44:00 Test Item Value Reference Range Interpretation Comments Magnesium Lvl (test code = Magnesium 2.2 1.8-2.4 Lvl) [facility]KK[facility]63[facility] 06:44:00 Test Item Value Reference Range Interpretation Comments S Preg (test code = S Negative *NA*(02/13/16 Preg) 1:44 AM) [facility] WorthMnjktwyCVDTELXFJW1228-00-69 06:44:00 Test Item Value Reference Range Interpretation Comments Basophils (test code = 0.1 See_Comment [Aut omated message] The Basophils) system which ge nerated this result tra nsmitted reference range : <=1.0. The reference r ozzy was not used to int erpret this result as normal/abnormal . [facility] WorthNqgacygDMMVVQZBYW0329-38-81 06:44:00 Test Item Value Reference Range Interpretation Comments Monocytes # (test code 0.3 See_Comment [Aut omated message] The = Monocytes #) system which generated this result tra nsmitted reference range : <=0.8. The reference r ozzy was not used to int erpret this result as normal/abnormal . [facility] WorthOormetaWVTLOBDNOP1225-48-82 06:44:00 Test Item Value Reference Range Interpretation Comments Eosinophils # (test code 0.1 See_Comment [A utomated message] The = Eosinophils #) system whic h generated this result tra nsmitted reference range : <=0.5. The reference r ozzy was not used to int erpret this result as normal/abnormal . [facility] WorthIqltlbdURLELAPIHG6673-14-25 06:44:00 Test Item Value Reference Range Interpretation Comments Segs-Bands # (test code = Segs-Bands #) 9.3 1.5-8.1 [facility] WorthJepfgzpHNAJFZOFLD8440-67-85 06:44:00 Test Item Value Reference Range Interpretation Comments Lymphocytes # (test code = Lymphocytes 2.6 1.0-5.5 #) [facility] WorthLojawoeYVDFOXFZMY1567-13-99 06:44:00 Test Item Value Reference Range Interpretation Comments Basophils # (test code 0.0 See_Comment [Aut omated message] The = Basophils #) system which generated this result tra nsmitted reference range : <=0.2. The reference r ozzy was not used to int erpret this result as normal/abnormal . [facility] WorthKhmbytjOIYSSFGBMP8797-19-03 06:44:00 Test Item Value Reference Range Interpretation Comments Microcyte (test code = 1+ *ABN*(02/13/16 1:44 Microcyte) AM) [facility] WorthCpqplvlONGBEJBSGD6514-22-00 06:44:00 Test Item Value Reference Range Interpretation Comments Giant Plt (test code Moderate *ABN*(02/13/16 = Giant Plt) 1:44 AM) [facility] WorthEjsqykbTJTHIBZXUV7143-03-74 06:44:00 Test Item Value Reference Range Interpretation Comments Segs (test code = Segs) 75.2 45.0-75.0 [facility] WorthRobenplRIAJOYMGAW5829-32-32 06:44:00 Test Item Value Reference Range Interpretation Comments Hypochrom (test code = 1+ (02/13/16 1:44 AM) Hypochrom) [facility] WorthEelbhhkKYJBSLCAHU0350-14-98 06:44:00 Test Item Value Reference Range Interpretation Comments Eosinophils (test code = 0.7 See_Comment [A utomated message] The Eosinophils) system which ge nerated this result tra nsmitted reference range : <=4.0. The reference r ozzy was not used to int erpret this result as normal/abnormal . [facility] WorthQhwtwinRJPTKRKULL7537-36-07 06:44:00 Test Item Value Reference Range Interpretation Comments Lymphocytes (test code = Lymphocytes) 21.3 20.0-40.0 [facility] WorthIrhrquuOPMVDEFAOX4929-90-86 06:44:00 Test Item Value Reference Range Interpretation Comments Monocytes (test code = Monocytes) 2.7 2.0-12.0 [facility] WorthSuscqdoCEKXXFDNHJ6094-05-08 06:44:00 Test Item Value Reference Range Interpretation Comments MPV (test code = MPV) 9.5 7.4-10.4 [facility] WorthAvjrhycXTEBEETCEK9592-95-54 06:44:00 Test Item Value Reference Range Interpretation Comments RDW (test code = RDW) 17.8 11.5-14.5 [facility] WorthHlyvewgBFOJOFBJVB5350-93-73 06:44:00 Test Item Value Reference Range Interpretation Comments MCV (test code = MCV) 73.2 80.0-98.0 [facility] WorthBlusrsvIBXBSZRTNV8240-40-89 06:44:00 Test Item Value Reference Range Interpretation Comments MCH (test code = MCH) 21.9 pg 27.0-31.0 [facility] WorthQsqlaqhQVYOGTCMAF6868-49-99 06:44:00 Test Item Value Reference Range Interpretation Comments Hct (test code = Hct) 27.2 36.0-48.0 [facility] WorthThhwfuqKQTCQYXIHW4913-52-00 06:44:00 Test Item Value Reference Range Interpretation Comments MCHC (test code = MCHC) 29.9 32.0-36.0 [facility] WorthPnbofoaSWXAPMOJWI9625-51-77 06:44:00 Test Item Value Reference Range Interpretation Comments Platelet (test code = Platelet) 400 133-450 [facility] WorthGlrqvscUQGHPZFQGP5701-96-97 06:44:00 Test Item Value Reference Range Interpretation Comments WBC (test code = WBC) 12.4 3.7-10.4 [facility] WorthZzautmgCCFIVKPNNW8934-18-90 06:44:00 Test Item Value Reference Range Interpretation Comments RBC (test code = RBC) 3.72 4.20-5.40 [facility] WorthAmbubvkGNETMJZSPJ0781-77-64 06:44:00 Test Item Value Reference Range Interpretation Comments Hgb (test code = Hgb) 8.1 12.0-16.0 [facility] WorthOrwsjwmDTOFIIYKNC0627-47-88 06:44:00 Test Item Value Reference Range Interpretation Comments PTT (test code = PTT) 27.2 s 22.9-35.8 [facility] WorthSmigzcdVABJNWWRNC1208-43-29 06:44:00 Test Item Value Reference Range Interpretation Comments PT (test code = PT) 14.7 s 12.0-14.7 [facility] WorthWfqcehhSXOSVNJFGL8530-04-00 06:44:00 Test Item Value Reference Range Interpretation Comments INR (test code = INR) 1.12 0.85-1.17 [facility] [id number] 07:51:00 Test Item Value Reference Range Interpretation Comments Globulin (test code = Globulin) 3.9 2.0-4.0 [facility] [id number] 07:51:00 Test Item Value Reference Range Interpretation Comments A/G Ratio (test code = A/G Ratio) 0.9 0.7-1.6 [place] [id number] 07:51:00 Test Item Value Reference Range Interpretation Comments hCG Tot (test code = hCG Tot) no gt [facility] WorthZcynufxCNLMLIKLPO6704-26-03 07:51:00 Test Item Value Reference Range Interpretation Comments MCHC (test code = MCHC) 33.8 32.0-36.0 [facility] WorthBuznrmsHBVLOQYTVT7967-16-66 07:51:00 Test Item Value Reference Range Interpretation Comments MCH (test code = MCH) 30.3 pg 27.0-31.0 [facility] WorthPukuvoeOFYGHCXIJM3319-71-66 07:51:00 Test Item Value Reference Range Interpretation Comments RDW (test code = RDW) 13.0 11.5-14.5 [facility] WorthZjnnjirIUNRXPJQVE7790-75-08 07:51:00 Test Item Value Reference Range Interpretation Comments MPV (test code = MPV) 8.4 7.4-10.4 [facility] WorthFgpkccvCSFMWKUHEA1065-53-27 07:51:00 Test Item Value Reference Range Interpretation Comments Platelet (test code = Platelet) 356 133-450 [facility] WorthXwgcmdfMSGXRHLEEU7796-95-14 07:51:00 Test Item Value Reference Range Interpretation Comments RBC (test code = RBC) 4.45 4.20-5.40 [facility] WorthHftnhcjTSYKGILZCP2962-28-52 07:51:00 Test Item Value Reference Range Interpretation Comments WBC (test code = WBC) 12.9 3.7-10.4 [facility] WorthMuwekgeUWMFXQZRTM1731-96-43 07:51:00 Test Item Value Reference Range Interpretation Comments Hgb (test code = Hgb) 13.5 12.0-16.0 [facility] WorthFqzcijoCKOBBZBCQK1774-24-93 07:51:00 Test Item Value Reference Range Interpretation Comments MCV (test code = MCV) 89.7 80.0-98.0 [facility] WorthOgqxpoeDQRASZCJFT2566-63-29 07:51:00 Test Item Value Reference Range Interpretation Comments Hct (test code = Hct) 39.9 36.0-48.0 [facility] WorthXesulapMVJBMBQNWE8596-52-17 07:51:00 Test Item Value Reference Range Interpretation Comments Eosinophils # (test code 0.3 See_Comment [A utomated message] The = Eosinophils #) system ic h generated this result tra nsmitted reference range : <=0.5. The reference r ozzy was not used to int erpret this result as normal/abnormal . [facility] WorthNmqoiivERNFATMFPX5354-93-53 07:51:00 Test Item Value Reference Range Interpretation Comments Lymphocytes # (test code = Lymphocytes 3.6 1.0-5.5 #) [facility] WorthTtllnycKHFLNPAXAA4805-95-02 07:51:00 Test Item Value Reference Range Interpretation Comments Monocytes # (test code 0.7 See_Comment [Aut omated message] The = Monocytes #) system which generated this result tra nsmitted reference range : <=0.8. The reference r ozzy was not used to int erpret this result as normal/abnormal . [facility] WorthUvbndfvQKGEZRSZPT6731-92-20 07:51:00 Test Item Value Reference Range Interpretation Comments Segs (test code = Segs) 63.9 45.0-75.0 [place] [id number] 07:51:00 Test Item Value Reference Range Interpretation Comments Segs-Bands # (test code = Segs-Bands #) 8.2 1.5-8.1 [facility] WorthPggcuoePISVUKMBFI8583-08-08 07:51:00 Test Item Value Reference Range Interpretation Comments Basophils (test code = 0.7 See_Comment [Aut omated message] The Basophils) system which ge nerated this result tra nsmitted reference range : <=1.0. The reference r ozzy was not used to int erpret this result as normal/abnormal . [facility] WorthCiuocigMZWDLQFEED1534-60-64 07:51:00 Test Item Value Reference Range Interpretation Comments Monocytes (test code = Monocytes) 5.4 2.0-12.0 [facility] WorthObmcriwXUDNSEGQUF5480-03-24 07:51:00 Test Item Value Reference Range Interpretation Comments Eosinophils (test code = 2.3 See_Comment [A utomated message] The Eosinophils) system which ge nerated this result tra nsmitted reference range : <=4.0. The reference r ozzy was not used to int erpret this result as normal/abnormal . [facility] WorthUfaspxhGTPDLJIIUW5441-03-02 07:51:00 Test Item Value Reference Range Interpretation Comments Lymphocytes (test code = Lymphocytes) 27.7 20.0-40.0 [facility] WorthBqdyblaDDAKOEPZIP0939-90-36 07:51:00 Test Item Value Reference Range Interpretation Comments Basophils # (test code 0.1 See_Comment [Aut omated message] The = Basophils #) system which generated this result tra nsmitted reference range : <=0.2. The reference r ozzy was not used to int erpret this result as normal/abnormal . [facility] AND [id number] 07:51:00 Test Item Value Reference Range Interpretation Comments UA Urobilinogen (test code = UA 1.0 0.1-1.0 Urobilinogen) [facility] AND [id number] 07:51:00 Test Item Value Reference Range Interpretation Comments UA Turbidity (test code Cloudy *ABN*(09/04/14 = UA Turbidity) 1:51 AM) [facility] AND [id number] 07:51:00 Test Item Value Reference Range Interpretation Comments UA Color (test code = Red *ABN*(09/04/14 1:51 UA Color) AM) [facility] AND [id number] 07:51:00 Test Item Value Reference Range Interpretation Comments UA Ketones (test code Negative *NA*(09/04/14 = UA Ketones) 1:51 AM) [facility] AND [id number] 07:51:00 Test Item Value Reference Range Interpretation Comments UA Glucose (test code Negative (09/04/14 1:51 = UA Glucose) AM) [facility] AND [id number] 07:51:00 Test Item Value Reference Range Interpretation Comments UA Protein (test code = Trace *ABN*(09/04/14 UA Protein) 1:51 AM) [facility] AND [id number] 07:51:00 Test Item Value Reference Range Interpretation Comments UA pH (test code = UA pH) 8.0 1 5.0-8.0 [facility] AND [id number] 07:51:00 Test Item Value Reference Range Interpretation Comments UA Spec Grav (test code = UA Spec 1.015 1 Grav) [facility] AND [id number] 07:51:00 Test Item Value Reference Range Interpretation Comments UA Bili (test code = Negative *NA*(09/04/14 UA Bili) 1:51 AM) [facility] AND [id number] 07:51:00 Test Item Value Reference Range Interpretation Comments UA Blood (test code = Large *ABN*(09/04/14 UA Blood) 1:51 AM) [facility] AND [id number] 07:51:00 Test Item Value Reference Range Interpretation Comments UA Leuk Est (test Negative (09/04/14 1:51 code = UA Leuk Est) AM) [facility] AND [id number] 07:51:00 Test Item Value Reference Range Interpretation Comments UA Nitrite (test code Negative (09/04/14 1:51 = UA Nitrite) AM) [facility] AND [id number] 07:51:00 Test Item Value Reference Range Interpretation Comments UA Amorph Joselin (test code = UA Few /HPF Amorph Joselin) [facility] AND [id number] 07:51:00 Test Item Value Reference Range Interpretation Comments UA RBC (test code 51-100 /HPF See_Comment [Automate d message] The = UA RBC) system which ge nerated this result tra nsmitted reference range : <=2. The reference r ozzy was not used to int erpret this result as normal/abnormal . [facility] AND [id number] 07:51:00 Test Item Value Reference Range Interpretation Comments UA WBC (test code = UA WBC) 6-10 /HPF [facility] AND [id number] 07:51:00 Test Item Value Reference Range Interpretation Comments UA Bacteria (test code = UA Few /HPF Bacteria) [facility] AND [id number] 07:51:00 Test Item Value Reference Range Interpretation Comments UA Sq Epi (test code = UA Sq Occasional /LPF Epi) [facility] [employer] [id number] 07:51:00 Test Item Value Reference Range Interpretation Comments ABO/Rh (test code = ABO/Rh) A POS [facility] [employer] [id number] 07:51:00 Test Item Value Reference Range Interpretation Comments Antibody Scrn (test Negative (09/04/14 1:51 code = Antibody Scrn) AM) [facility] [employer] [id number] 07:51:00 Test Item Value Reference Range Interpretation Comments Albumin Lvl (test code = Albumin Lvl) 3.4 3.5-5.0 [facility] [employer] [id number] 07:51:00 Test Item Value Reference Range Interpretation Comments Alk Phos (test code = Alk Phos) 64 39-136 [facility]2015-01-23 07:51:00 Test Item Value Reference Range Interpretation Comments ALT (test code = ALT) 18 See_Comment [Auto mated message] The system which ge nerated this result transmit gaye reference range : <=65. The reference range was not used to interpr et this result as satish l/abnormal. [facility]2015-01-23 07:51:00 Test Item Value Reference Range Interpretation Comments AST (test code = AST) 12 See_Comment [Auto mated message] The system which ge nerated this result transmit gaye reference range : <=37. The reference range was not used to interpr et this result as satish l/abnormal. [facility]2015-01-23 07:51:00 Test Item Value Reference Range Interpretation Comments eGFR (test code = eGFR) 93 [facility]2015-01-23 07:51:00 Test Item Value Reference Range Interpretation Comments Bili Total (test code = Bili Total) 0.3 0.2-1.3 [facility]2015-01-23 07:51:00 Test Item Value Reference Range Interpretation Comments Chloride Lvl (test code = Chloride Lvl) 108 95-109 [facility]2015-01-23 07:51:00 Test Item Value Reference Range Interpretation Comments Sodium Lvl (test code = Sodium Lvl) 138 135-145 [facility]2015-01-23 07:51:00 Test Item Value Reference Range Interpretation Comments Potassium Lvl (test code = Potassium 3.9 3.5-5.1 Lvl) [facility]2015-01-23 07:51:00 Test Item Value Reference Range Interpretation Comments CO2 (test code = CO2) 22 24-32 [facility]2015-01-23 07:51:00 Test Item Value Reference Range Interpretation Comments Calcium Lvl (test code = Calcium Lvl) 8.8 8.5-10.5 [facility]2015-01-23 07:51:00 Test Item Value Reference Range Interpretation Comments Glucose Lvl (test code = Glucose Lvl) 98 70-99 [facility]2015-01-23 07:51:00 Test Item Value Reference Range Interpretation Comments Total Protein (test code = Total 7.3 6.4-8.4 Protein) [facility]2015-01-23 07:51:00 Test Item Value Reference Range Interpretation Comments BUN (test code = BUN) 12 - [facility]2015-01-23 07:51:00 Test Item Value Reference Range Interpretation Comments Creatinine Lvl (test code = Creatinine 0.8 0.5-1.4 Lvl) [facility]2015-01-23 07:51:00 Test Item Value Reference Range Interpretation Comments AGAP (test code = AGAP) 11.9 10.0-20.0 [facility]2015-01-23 07:51:00 Test Item Value Reference Range Interpretation Comments B/C Ratio (test code = B/C Ratio) 15 6-25 [facility]2015-01-23 07:51:00 Test Item Value Reference Range Interpretation Comments Globulin (test code = Globulin) 3.9 2.0-4.0 [facility]2015-01-23 07:51:00 Test Item Value Reference Range Interpretation Comments A/G Ratio (test code = A/G Ratio) 0.9 0.7-1.6 [facility]FPB[facility]ATQTHLT0964-21-74 07:51:00 Test Item Value Reference Range Interpretation Comments hCG Tot (test code = hCG Tot) no gt [facility] WorthKywjykbIQRSMANULX6192-77-83 07:51:00 Test Item Value Reference Range Interpretation Comments MCHC (test code = MCHC) 33.8 32.0-36.0 [facility] WorthMroxddiSKOVCTYBNE0567-97-33 07:51:00 Test Item Value Reference Range Interpretation Comments MCH (test code = MCH) 30.3 pg 27.0-31.0 [facility] WorthXgkgvqyPMVMTTFLPW2224-89-57 07:51:00 Test Item Value Reference Range Interpretation Comments RDW (test code = RDW) 13.0 11.5-14.5 [facility] WorthSmoimxeBSFBSBWYFM5857-01-70 07:51:00 Test Item Value Reference Range Interpretation Comments MPV (test code = MPV) 8.4 7.4-10.4 [facility] WorthUbiuzxpJUBEXFTDUC1306-20-29 07:51:00 Test Item Value Reference Range Interpretation Comments Platelet (test code = Platelet) 356 133-450 [facility] WorthSwljzjxDFSMWNWJON1619-47-63 07:51:00 Test Item Value Reference Range Interpretation Comments RBC (test code = RBC) 4.45 4.20-5.40 [facility] WorthSvmpcvpVHHNVFYCMA2039-72-06 07:51:00 Test Item Value Reference Range Interpretation Comments WBC (test code = WBC) 12.9 3.7-10.4 [facility] WorthQmpcdkwXIXFATGLLV1036-09-31 07:51:00 Test Item Value Reference Range Interpretation Comments Hgb (test code = Hgb) 13.5 12.0-16.0 [facility] WorthNbdjzxoMBFQOKWETI4146-89-13 07:51:00 Test Item Value Reference Range Interpretation Comments MCV (test code = MCV) 89.7 80.0-98.0 [facility] WorthNvrfycrHCWKQLDBJH2867-37-71 07:51:00 Test Item Value Reference Range Interpretation Comments Hct (test code = Hct) 39.9 36.0-48.0 [facility] WorthAnwrbgrQDRWPPMJMT4659-25-91 07:51:00 Test Item Value Reference Range Interpretation Comments Eosinophils # (test code 0.3 See_Comment [A utomated message] The = Eosinophils #) system whic h generated this result tra nsmitted reference range : <=0.5. The reference r ozzy was not used to int erpret this result as normal/abnormal . [facility] WorthJtdjiyoEMOEKVNNTP8619-29-74 07:51:00 Test Item Value Reference Range Interpretation Comments Lymphocytes # (test code = Lymphocytes 3.6 1.0-5.5 #) [facility] WorthMhgktypSGNTJJNVMZ1919-47-44 07:51:00 Test Item Value Reference Range Interpretation Comments Monocytes # (test code 0.7 See_Comment [Aut omated message] The = Monocytes #) system which generated this result tra nsmitted reference range : <=0.8. The reference r ozzy was not used to int erpret this result as normal/abnormal . [facility] WorthCikblxbAXLUIWWBUL8123-91-34 07:51:00 Test Item Value Reference Range Interpretation Comments Segs (test code = Segs) 63.9 45.0-75.0 [facility] WorthTetbvpzZXFBTKYADT0284-11-57 07:51:00 Test Item Value Reference Range Interpretation Comments Segs-Bands # (test code = Segs-Bands #) 8.2 1.5-8.1 [facility] WorthXpudengMIIQJJNULJ7765-95-77 07:51:00 Test Item Value Reference Range Interpretation Comments Basophils (test code = 0.7 See_Comment [Aut omated message] The Basophils) system which ge nerated this result tra nsmitted reference range : <=1.0. The reference r ozzy was not used to int erpret this result as normal/abnormal . [facility] WorthMutipqmKBYEILZDOF0138-54-92 07:51:00 Test Item Value Reference Range Interpretation Comments Monocytes (test code = Monocytes) 5.4 2.0-12.0 [facility] WorthEqwzwmwUHDLZNHHKF5807-61-96 07:51:00 Test Item Value Reference Range Interpretation Comments Eosinophils (test code = 2.3 See_Comment [A utomated message] The Eosinophils) system which ge nerated this result tra nsmitted reference range : <=4.0. The reference r ozzy was not used to int erpret this result as normal/abnormal . [facility] WorthXpqklwgJUJNSMHBWT4022-37-09 07:51:00 Test Item Value Reference Range Interpretation Comments Lymphocytes (test code = Lymphocytes) 27.7 20.0-40.0 [facility] WorthVrjwrqtKDVTIEVARF3271-72-43 07:51:00 Test Item Value Reference Range Interpretation Comments Basophils # (test code 0.1 See_Comment [Aut omated message] The = Basophils #) system which generated this result tra nsmitted reference range : <=0.2. The reference r ozzy was not used to int erpret this result as normal/abnormal . [facility] AND [id number] 07:51:00 Test Item Value Reference Range Interpretation Comments UA Urobilinogen (test code = UA 1.0 0.1-1.0 Urobilinogen) [facility] AND [id number] 07:51:00 Test Item Value Reference Range Interpretation Comments UA Turbidity (test code Cloudy *ABN*(09/04/14 = UA Turbidity) 1:51 AM) [facility] AND [id number] 07:51:00 Test Item Value Reference Range Interpretation Comments UA Color (test code = Red *ABN*(09/04/14 1:51 UA Color) AM) [facility] AND [id number] 07:51:00 Test Item Value Reference Range Interpretation Comments UA Ketones (test code Negative *NA*(09/04/14 = UA Ketones) 1:51 AM) [facility] AND [id number] 07:51:00 Test Item Value Reference Range Interpretation Comments UA Glucose (test code Negative (09/04/14 1:51 = UA Glucose) AM) [facility] AND [id number] 07:51:00 Test Item Value Reference Range Interpretation Comments UA Protein (test code = Trace *ABN*(09/04/14 UA Protein) 1:51 AM) [facility] AND [id number] 07:51:00 Test Item Value Reference Range Interpretation Comments UA pH (test code = UA pH) 8.0 1 5.0-8.0 [facility] AND [id number] 07:51:00 Test Item Value Reference Range Interpretation Comments UA Spec Grav (test code = UA Spec 1.015 1 Grav) [facility] AND [id number] 07:51:00 Test Item Value Reference Range Interpretation Comments UA Bili (test code = Negative *NA*(09/04/14 UA Bili) 1:51 AM) [facility] AND [id number] 07:51:00 Test Item Value Reference Range Interpretation Comments UA Blood (test code = Large *ABN*(09/04/14 UA Blood) 1:51 AM) [facility] AND [id number] 07:51:00 Test Item Value Reference Range Interpretation Comments UA Leuk Est (test Negative (09/04/14 1:51 code = UA Leuk Est) AM) [facility] AND [id number] 07:51:00 Test Item Value Reference Range Interpretation Comments UA Nitrite (test code Negative (09/04/14 1:51 = UA Nitrite) AM) [facility] AND [id number] 07:51:00 Test Item Value Reference Range Interpretation Comments UA Amorph Joselin (test code = UA Few /HPF Amorph Joselin) [facility] AND [id number] 07:51:00 Test Item Value Reference Range Interpretation Comments UA RBC (test code 51-100 /HPF See_Comment [Automate d message] The = UA RBC) system which ge nerated this result tra nsmitted reference range : <=2. The reference r ozzy was not used to int erpret this result as normal/abnormal . [facility] AND [id number] 07:51:00 Test Item Value Reference Range Interpretation Comments UA WBC (test code = UA WBC) 6-10 /HPF [facility] AND [id number] 07:51:00 Test Item Value Reference Range Interpretation Comments UA Bacteria (test code = UA Few /HPF Bacteria) [facility] AND [id number] 07:51:00 Test Item Value Reference Range Interpretation Comments UA Sq Epi (test code = UA Sq Occasional /LPF Epi) [facility] [employer] [id number] 07:51:00 Test Item Value Reference Range Interpretation Comments ABO/Rh (test code = ABO/Rh) A POS [facility] [employer] [facility] [id number] 07:51:00 Test Item Value Reference Range Interpretation Comments Antibody Scrn (test Negative (09/04/14 1:51 code = Antibody Scrn) AM) [facility] [employer] [id number] 07:51:00 Test Item Value Reference Range Interpretation Comments Albumin Lvl (test code = Albumin Lvl) 3.4 3.5-5.0 [facility] [employer] [id number] 07:51:00 Test Item Value Reference Range Interpretation Comments Alk Phos (test code = Alk Phos) 64 39-136 [facility] [employer] [id number] 07:51:00 Test Item Value Reference Range Interpretation Comments ALT (test code = ALT) 18 See_Comment [Auto mated message] The system which ge nerated this result transmit gaye reference range : <=65. The reference range was not used to interpr et this result as satish l/abnormal. [facility] [employer] [id number] 07:51:00 Test Item Value Reference Range Interpretation Comments AST (test code = AST) 12 See_Comment [Auto mated message] The system which ge nerated this result transmit gaye reference range : <=37. The reference range was not used to interpr et this result as satish l/abnormal. [facility] [employer] [id number] 07:51:00 Test Item Value Reference Range Interpretation Comments eGFR (test code = eGFR) 93 [facility] [employer] [facility] [id number] 07:51:00 Test Item Value Reference Range Interpretation Comments Bili Total (test code = Bili Total) 0.3 0.2-1.3 [facility]2015-01-23 07:51:00 Test Item Value Reference Range Interpretation Comments Chloride Lvl (test code = Chloride Lvl) 108 95-109 [facility]2015-01-23 07:51:00 Test Item Value Reference Range Interpretation Comments Sodium Lvl (test code = Sodium Lvl) 138 135-145 [facility]2015-01-23 07:51:00 Test Item Value Reference Range Interpretation Comments Potassium Lvl (test code = Potassium 3.9 3.5-5.1 Lvl) [facility]2015-01-23 07:51:00 Test Item Value Reference Range Interpretation Comments CO2 (test code = CO2) 22 - [facility]2015-01-23 07:51:00 Test Item Value Reference Range Interpretation Comments Calcium Lvl (test code = Calcium Lvl) 8.8 8.5-10.5 [facility]2015-01-23 07:51:00 Test Item Value Reference Range Interpretation Comments Glucose Lvl (test code = Glucose Lvl) 98 70-99 [facility]2015-01-23 07:51:00 Test Item Value Reference Range Interpretation Comments Total Protein (test code = Total 7.3 6.4-8.4 Protein) [facility]2015-01-23 07:51:00 Test Item Value Reference Range Interpretation Comments BUN (test code = BUN) 12 - [facility]2015-01-23 07:51:00 Test Item Value Reference Range Interpretation Comments Creatinine Lvl (test code = Creatinine 0.8 0.5-1.4 Lvl) [facility]2015-01-23 07:51:00 Test Item Value Reference Range Interpretation Comments AGAP (test code = AGAP) 11.9 10.0-20.0 [facility]2015-01-23 07:51:00 Test Item Value Reference Range Interpretation Comments B/C Ratio (test code = B/C Ratio) 15 6-25 [facility]2015-01-23 07:51:00 Test Item Value Reference Range Interpretation Comments Globulin (test code = Globulin) 3.9 2.0-4.0 [facility] [id number] 07:51:00 Test Item Value Reference Range Interpretation Comments A/G Ratio (test code = A/G Ratio) 0.9 0.7-1.6 [facility]MVZSVZSCHRIVX3992-13-05 07:51:00 Test Item Value Reference Range Interpretation Comments hCG Tot (test code = hCG Tot) no gt [facility] WorthZwdaebwKOLHIQXIKW1116-01-02 07:51:00 Test Item Value Reference Range Interpretation Comments MCHC (test code = MCHC) 33.8 32.0-36.0 [facility] WorthXyfvojkTQHWIZMZLN5607-25-74 07:51:00 Test Item Value Reference Range Interpretation Comments MCH (test code = MCH) 30.3 pg 27.0-31.0 [facility] WorthNxjhxgdNRGGOFPNVG7308-14-38 07:51:00 Test Item Value Reference Range Interpretation Comments RDW (test code = RDW) 13.0 11.5-14.5 [facility] WorthGnjgkgbYZARFFWQPG0806-70-41 07:51:00 Test Item Value Reference Range Interpretation Comments MPV (test code = MPV) 8.4 7.4-10.4 [facility] WorthChpazqpOPGOUDLWHS1494-32-16 07:51:00 Test Item Value Reference Range Interpretation Comments Platelet (test code = Platelet) 356 133-450 [facility] WorthPulybncHZFKQTERWO9113-10-24 07:51:00 Test Item Value Reference Range Interpretation Comments RBC (test code = RBC) 4.45 4.20-5.40 [facility] WorthBngutteXYYJUQREOV9189-23-04 07:51:00 Test Item Value Reference Range Interpretation Comments WBC (test code = WBC) 12.9 3.7-10.4 [facility] WorthNaoqbdlRVFATVJCJK3266-36-10 07:51:00 Test Item Value Reference Range Interpretation Comments Hgb (test code = Hgb) 13.5 12.0-16.0 [facility] WorthMwdwewmWNAXMGVUOM8705-44-97 07:51:00 Test Item Value Reference Range Interpretation Comments MCV (test code = MCV) 89.7 80.0-98.0 [facility] WorthNsgzedvSGZQZNXDRR3372-55-32 07:51:00 Test Item Value Reference Range Interpretation Comments Hct (test code = Hct) 39.9 36.0-48.0 [facility] WorthFdwwjyqBWEMHQAWJT6883-57-09 07:51:00 Test Item Value Reference Range Interpretation Comments Eosinophils # (test code 0.3 See_Comment [A utomated message] The = Eosinophils #) system wh h generated this result tra nsmitted reference range : <=0.5. The reference r ozzy was not used to int erpret this result as normal/abnormal . [facility] WorthRyxvcduRGVJCGRIUO7962-71-20 07:51:00 Test Item Value Reference Range Interpretation Comments Lymphocytes # (test code = Lymphocytes 3.6 1.0-5.5 #) [facility] WorthEedkkwiCBUJYQBTXW4193-39-61 07:51:00 Test Item Value Reference Range Interpretation Comments Monocytes # (test code 0.7 See_Comment [Aut omated message] The = Monocytes #) system which generated this result tra nsmitted reference range : <=0.8. The reference r ozzy was not used to int erpret this result as normal/abnormal . [facility] WorthCtvywasOSNZWPATBY1548-42-38 07:51:00 Test Item Value Reference Range Interpretation Comments Segs (test code = Segs) 63.9 45.0-75.0 [facility] WorthTmosvgkAWEZRXQYJY9110-75-88 07:51:00 Test Item Value Reference Range Interpretation Comments Segs-Bands # (test code = Segs-Bands #) 8.2 1.5-8.1 [facility] WorthDdasdqrYHAVNFBISW5823-27-41 07:51:00 Test Item Value Reference Range Interpretation Comments Basophils (test code = 0.7 See_Comment [Aut omated message] The Basophils) system which ge nerated this result tra nsmitted reference range : <=1.0. The reference r ozzy was not used to int erpret this result as normal/abnormal . [facility] WorthYzvtlswXBPZVBNUWE9382-89-92 07:51:00 Test Item Value Reference Range Interpretation Comments Monocytes (test code = Monocytes) 5.4 2.0-12.0 [facility] WorthSilgxagWKLQHIRDQL8857-81-92 07:51:00 Test Item Value Reference Range Interpretation Comments Eosinophils (test code = 2.3 See_Comment [A utomated message] The Eosinophils) system which ge nerated this result tra nsmitted reference range : <=4.0. The reference r ozzy was not used to int erpret this result as normal/abnormal . [facility] WorthNdngrmlFIFHDYZXXR1163-98-82 07:51:00 Test Item Value Reference Range Interpretation Comments Lymphocytes (test code = Lymphocytes) 27.7 20.0-40.0 [facility]ETVXBGNQ1716-35-32 07:51:00 Test Item Value Reference Range Interpretation Comments Basophils # (test code 0.1 See_Comment [Aut omated message] The = Basophils #) system which generated this result tra nsmitted reference range : <=0.2. The reference r ozzy was not used to int erpret this result as normal/abnormal . [facility] AND [id number] 07:51:00 Test Item Value Reference Range Interpretation Comments UA Urobilinogen (test code = UA 1.0 0.1-1.0 Urobilinogen) [facility] AND [id number] 07:51:00 Test Item Value Reference Range Interpretation Comments UA Turbidity (test code Cloudy *ABN*(09/04/14 = UA Turbidity) 1:51 AM) [facility] AND [id number] 07:51:00 Test Item Value Reference Range Interpretation Comments UA Color (test code = Red *ABN*(09/04/14 1:51 UA Color) AM) [facility] AND [id number] 07:51:00 Test Item Value Reference Range Interpretation Comments UA Ketones (test code Negative *NA*(09/04/14 = UA Ketones) 1:51 AM) [facility] AND [id number] 07:51:00 Test Item Value Reference Range Interpretation Comments UA Glucose (test code Negative (09/04/14 1:51 = UA Glucose) AM) [facility] AND [id number] 07:51:00 Test Item Value Reference Range Interpretation Comments UA Protein (test code = Trace *ABN*(09/04/14 UA Protein) 1:51 AM) [facility] AND [id number] 07:51:00 Test Item Value Reference Range Interpretation Comments UA pH (test code = UA pH) 8.0 1 5.0-8.0 [facility] AND [id number] 07:51:00 Test Item Value Reference Range Interpretation Comments UA Spec Grav (test code = UA Spec 1.015 1 Grav) [facility] AND [id number] 07:51:00 Test Item Value Reference Range Interpretation Comments UA Bili (test code = Negative *NA*(09/04/14 UA Bili) 1:51 AM) [facility] AND [id number] 07:51:00 Test Item Value Reference Range Interpretation Comments UA Blood (test code = Large *ABN*(09/04/14 UA Blood) 1:51 AM) [facility] AND [id number] 07:51:00 Test Item Value Reference Range Interpretation Comments UA Leuk Est (test Negative (09/04/14 1:51 code = UA Leuk Est) AM) [facility] AND [id number] 07:51:00 Test Item Value Reference Range Interpretation Comments UA Nitrite (test code Negative (09/04/14 1:51 = UA Nitrite) AM) [facility] AND [id number] 07:51:00 Test Item Value Reference Range Interpretation Comments UA Amorph Joselin (test code = UA Few /HPF Amorph Joselin) [facility] AND [id number] 07:51:00 Test Item Value Reference Range Interpretation Comments UA RBC (test code 51-100 /HPF See_Comment [Automate d message] The = UA RBC) system which ge nerated this result tra nsmitted reference range : <=2. The reference r ozzy was not used to int erpret this result as normal/abnormal . [facility] AND [id number] 07:51:00 Test Item Value Reference Range Interpretation Comments UA WBC (test code = UA WBC) 6-10 /HPF [facility] AND [id number] 07:51:00 Test Item Value Reference Range Interpretation Comments UA Bacteria (test code = UA Few /HPF Bacteria) [facility] AND [id number] 07:51:00 Test Item Value Reference Range Interpretation Comments UA Sq Epi (test code = UA Sq Occasional /LPF Epi) [facility] [id number] 07:51:00 Test Item Value Reference Range Interpretation Comments ABO/Rh (test code = ABO/Rh) A POS [facility] [employer] B[facility] [id number] 07:51:00 Test Item Value Reference Range Interpretation Comments Antibody Scrn (test Negative (09/04/14 1:51 code = Antibody Scrn) AM) [facility]2015-01-23 07:51:00 Test Item Value Reference Range Interpretation Comments Albumin Lvl (test code = Albumin Lvl) 3.4 3.5-5.0 [place] 779425-01-23 07:51:00 Test Item Value Reference Range Interpretation Comments Alk Phos (test code = Alk Phos) 64 39-136 [place] 779425-01-23 07:51:00 Test Item Value Reference Range Interpretation Comments ALT (test code = ALT) 18 See_Comment [Auto mated message] The system which ge nerated this result transmit gaye reference range : <=65. The reference range was not used to interpr et this result as satish l/abnormal. [place] 779425-01-23 07:51:00 Test Item Value Reference Range Interpretation Comments AST (test code = AST) 12 See_Comment [Auto mated message] The system which ge nerated this result transmit gaye reference range : <=37. The reference range was not used to interpr et this result as satish l/abnormal. [facility]2015-01-23 07:51:00 Test Item Value Reference Range Interpretation Comments eGFR (test code = eGFR) 93 [facility]2015-01-23 07:51:00 Test Item Value Reference Range Interpretation Comments Bili Total (test code = Bili Total) 0.3 0.2-1.3 [place] 779425-01-23 07:51:00 Test Item Value Reference Range Interpretation Comments Chloride Lvl (test code = Chloride Lvl) 108 95-109 [facility]2015-01-23 07:51:00 Test Item Value Reference Range Interpretation Comments Sodium Lvl (test code = Sodium Lvl) 138 135-145 [place] 779425-01-23 07:51:00 Test Item Value Reference Range Interpretation Comments Potassium Lvl (test code = Potassium 3.9 3.5-5.1 Lvl) [facility]2015-01-23 07:51:00 Test Item Value Reference Range Interpretation Comments CO2 (test code = CO2) 22 24-32 [place] 779425-01-23 07:51:00 Test Item Value Reference Range Interpretation Comments Calcium Lvl (test code = Calcium Lvl) 8.8 8.5-10.5 [facility]2015-01-23 07:51:00 Test Item Value Reference Range Interpretation Comments Glucose Lvl (test code = Glucose Lvl) 98 70-99 [facility]2015-01-23 07:51:00 Test Item Value Reference Range Interpretation Comments Total Protein (test code = Total 7.3 6.4-8.4 Protein) [facility]2015-01-23 07:51:00 Test Item Value Reference Range Interpretation Comments BUN (test code = BUN) 12 7-22 [facility]2015-01-23 07:51:00 Test Item Value Reference Range Interpretation Comments Creatinine Lvl (test code = Creatinine 0.8 0.5-1.4 Lvl) [facility]2015-01-23 07:51:00 Test Item Value Reference Range Interpretation Comments AGAP (test code = AGAP) 11.9 10.0-20.0 [facility]2015-01-23 07:51:00 Test Item Value Reference Range Interpretation Comments B/C Ratio (test code = B/C Ratio) 15 6-25 [facility]2015-01-23 07:51:00 Test Item Value Reference Range Interpretation Comments Globulin (test code = Globulin) 3.9 2.0-4.0 [facility]2015-01-23 07:51:00 Test Item Value Reference Range Interpretation Comments A/G Ratio (test code = A/G Ratio) 0.9 0.7-1.6 [facility]vatovpRUZSZWDCHZUHF6050-45-69 07:51:00 Test Item Value Reference Range Interpretation Comments hCG Tot (test code = hCG Tot) no gt [facility] WorthYttqbeeGUYUONKURG1381-29-79 07:51:00 Test Item Value Reference Range Interpretation Comments MCHC (test code = MCHC) 33.8 32.0-36.0 [facility] WorthOxdyxcjQPLGCXJRAM0538-49-60 07:51:00 Test Item Value Reference Range Interpretation Comments MCH (test code = MCH) 30.3 pg 27.0-31.0 [facility] WorthJxiwxgkKDZLZSSNXD1469-42-30 07:51:00 Test Item Value Reference Range Interpretation Comments RDW (test code = RDW) 13.0 11.5-14.5 [facility] WorthQinmdxhQVMWHUNVTU5759-76-51 07:51:00 Test Item Value Reference Range Interpretation Comments MPV (test code = MPV) 8.4 7.4-10.4 [facility] WorthRbpirupRDJHALQERZ8360-28-81 07:51:00 Test Item Value Reference Range Interpretation Comments Platelet (test code = Platelet) 356 133-450 [facility] WorthIiqfzudYQZDGBBHVC0614-25-13 07:51:00 Test Item Value Reference Range Interpretation Comments RBC (test code = RBC) 4.45 4.20-5.40 [facility] WorthEfyixwhSQMXGSFWTL4362-00-23 07:51:00 Test Item Value Reference Range Interpretation Comments WBC (test code = WBC) 12.9 3.7-10.4 [facility] WorthVcfjbjeTJOBHZSGFL3674-98-98 07:51:00 Test Item Value Reference Range Interpretation Comments Hgb (test code = Hgb) 13.5 12.0-16.0 [facility] WorthCrzmrivIOYYRPJWNI0352-76-74 07:51:00 Test Item Value Reference Range Interpretation Comments MCV (test code = MCV) 89.7 80.0-98.0 [facility] WorthWfpdjrbEJFOLFBWKV6831-63-77 07:51:00 Test Item Value Reference Range Interpretation Comments Hct (test code = Hct) 39.9 36.0-48.0 [facility] [facility]182[place]36 07:51:00 Test Item Value Reference Range Interpretation Comments Eosinophils # (test code 0.3 See_Comment [A utomated message] The = Eosinophils #) system whic h generated this result tra nsmitted reference range : <=0.5. The reference r ozzy was not used to int erpret this result as normal/abnormal . [facility]XjxjqroWVJGDCYOKF4853-32-31 07:51:00 Test Item Value Reference Range Interpretation Comments Lymphocytes # (test code = Lymphocytes 3.6 1.0-5.5 #) [id number] 07:51:00 Test Item Value Reference Range Interpretation Comments Monocytes # (test code 0.7 See_Comment [Aut omated message] The = Monocytes #) system which generated this result tra nsmitted reference range : <=0.8. The reference r ozzy was not used to int erpret this result as normal/abnormal . [facility] WorthTdxmxwqCNANDOBIQC1171-15-50 07:51:00 Test Item Value Reference Range Interpretation Comments Segs (test code = Segs) 63.9 45.0-75.0 [facility] WorthCliuiecAFCEWIOKSB3840-99-04 07:51:00 Test Item Value Reference Range Interpretation Comments Segs-Bands # (test code = Segs-Bands #) 8.2 1.5-8.1 [facility] WorthSyytxpyWOSOFCLQTR6078-37-01 07:51:00 Test Item Value Reference Range Interpretation Comments Basophils (test code = 0.7 See_Comment [Aut omated message] The Basophils) system which ge nerated this result tra nsmitted reference range : <=1.0. The reference r ozzy was not used to int erpret this result as normal/abnormal . [facility] WorthWxiulflWPDFIVMBGJ2433-90-60 07:51:00 Test Item Value Reference Range Interpretation Comments Monocytes (test code = Monocytes) 5.4 2.0-12.0 [facility] WorthOuzpjmmGYFBJRVTWP7859-16-05 07:51:00 Test Item Value Reference Range Interpretation Comments Eosinophils (test code = 2.3 See_Comment [A utomated message] The Eosinophils) system which ge nerated this result tra nsmitted reference range : <=4.0. The reference r ozzy was not used to int erpret this result as normal/abnormal . [facility] WorthVkfdcxpAINYFXVFOF9140-51-09 07:51:00 Test Item Value Reference Range Interpretation Comments Lymphocytes (test code = Lymphocytes) 27.7 20.0-40.0 [facility] WorthWfmabqjZXLHFQYLFB3940-03-45 07:51:00 Test Item Value Reference Range Interpretation Comments Basophils # (test code 0.1 See_Comment [Aut omated message] The = Basophils #) system which generated this result tra nsmitted reference range : <=0.2. The reference r ozzy was not used to int erpret this result as normal/abnormal . [facility] AND [id number] 07:51:00 Test Item Value Reference Range Interpretation Comments UA Urobilinogen (test code = UA 1.0 0.1-1.0 Urobilinogen) [facility] AND [id number] 07:51:00 Test Item Value Reference Range Interpretation Comments UA Turbidity (test code Cloudy *ABN*(09/04/14 = UA Turbidity) 1:51 AM) [facility] AND [id number] 07:51:00 Test Item Value Reference Range Interpretation Comments UA Color (test code = Red *ABN*(09/04/14 1:51 UA Color) AM) [facility] AND [id number] 07:51:00 Test Item Value Reference Range Interpretation Comments UA Ketones (test code Negative *NA*(09/04/14 = UA Ketones) 1:51 AM) [facility] AND [id number] 07:51:00 Test Item Value Reference Range Interpretation Comments UA Glucose (test code Negative (09/04/14 1:51 = UA Glucose) AM) [facility] AND [id number] 07:51:00 Test Item Value Reference Range Interpretation Comments UA Protein (test code = Trace *ABN*(09/04/14 UA Protein) 1:51 AM) [facility] AND [id number] 07:51:00 Test Item Value Reference Range Interpretation Comments UA pH (test code = UA pH) 8.0 1 5.0-8.0 [facility] AND [id number] 07:51:00 Test Item Value Reference Range Interpretation Comments UA Spec Grav (test code = UA Spec 1.015 1 Grav) [facility] AND [id number] 07:51:00 Test Item Value Reference Range Interpretation Comments UA Bili (test code = Negative *NA*(09/04/14 UA Bili) 1:51 AM) [facility] AND [id number] 07:51:00 Test Item Value Reference Range Interpretation Comments UA Blood (test code = Large *ABN*(09/04/14 UA Blood) 1:51 AM) [facility] AND [id number] 07:51:00 Test Item Value Reference Range Interpretation Comments UA Leuk Est (test Negative (09/04/14 1:51 code = UA Leuk Est) AM) [facility] AND [id number] 07:51:00 Test Item Value Reference Range Interpretation Comments UA Nitrite (test code Negative (09/04/14 1:51 = UA Nitrite) AM) [facility] AND [id number] 07:51:00 Test Item Value Reference Range Interpretation Comments UA Amorph Joselin (test code = UA Few /HPF Amorph Joselin) [facility] AND [id number] 07:51:00 Test Item Value Reference Range Interpretation Comments UA RBC (test code 51-100 /HPF See_Comment [Automate d message] The = UA RBC) system which ge nerated this result tra nsmitted reference range : <=2. The reference r ozzy was not used to int erpret this result as normal/abnormal . [facility] AND [id number] 07:51:00 Test Item Value Reference Range Interpretation Comments UA WBC (test code = UA WBC) 6-10 /HPF [facility] AND [id number] 07:51:00 Test Item Value Reference Range Interpretation Comments UA Bacteria (test code = UA Few /HPF Bacteria) [facility] AND [id number] 07:51:00 Test Item Value Reference Range Interpretation Comments UA Sq Epi (test code = UA Sq Occasional /LPF Epi) [facility] [employer] [id number] 07:51:00 Test Item Value Reference Range Interpretation Comments ABO/Rh (test code = ABO/Rh) A POS [facility] [employer] [id number] 07:51:00 Test Item Value Reference Range Interpretation Comments Antibody Scrn (test Negative (09/04/14 1:51 code = Antibody Scrn) AM) [facility] [employer] [id number] 07:51:00 Test Item Value Reference Range Interpretation Comments Albumin Lvl (test code = Albumin Lvl) 3.4 3.5-5.0 [facility] [employer] [id number] 07:51:00 Test Item Value Reference Range Interpretation Comments Alk Phos (test code = Alk Phos) 64 39-136 [facility] [employer] [id number] 07:51:00 Test Item Value Reference Range Interpretation Comments ALT (test code = ALT) 18 See_Comment [Auto mated message] The system which ge nerated this result transmit gaye reference range : <=65. The reference range was not used to interpr et this result as satish l/abnormal. [facility] [employer] [id number] 07:51:00 Test Item Value Reference Range Interpretation Comments AST (test code = AST) 12 See_Comment [Auto mated message] The system which ge nerated this result transmit gaye reference range : <=37. The reference range was not used to interpr et this result as satish l/abnormal. [facility]2015-01-23 07:51:00 Test Item Value Reference Range Interpretation Comments eGFR (test code = eGFR) 93 [facility]2015-01-23 07:51:00 Test Item Value Reference Range Interpretation Comments Bili Total (test code = Bili Total) 0.3 0.2-1.3 [facility]2015-01-23 07:51:00 Test Item Value Reference Range Interpretation Comments Chloride Lvl (test code = Chloride Lvl) 108 95-109 [facility]2015-01-23 07:51:00 Test Item Value Reference Range Interpretation Comments Sodium Lvl (test code = Sodium Lvl) 138 135-145 [facility]2015-01-23 07:51:00 Test Item Value Reference Range Interpretation Comments Potassium Lvl (test code = Potassium 3.9 3.5-5.1 Lvl) [facility]2015-01-23 07:51:00 Test Item Value Reference Range Interpretation Comments CO2 (test code = CO2) 22 24-32 [facility]2015-01-23 07:51:00 Test Item Value Reference Range Interpretation Comments Calcium Lvl (test code = Calcium Lvl) 8.8 8.5-10.5 [facility]2015-01-23 07:51:00 Test Item Value Reference Range Interpretation Comments Glucose Lvl (test code = Glucose Lvl) 98 70-99 [facility]2015-01-23 07:51:00 Test Item Value Reference Range Interpretation Comments Total Protein (test code = Total 7.3 6.4-8.4 Protein) [facility]2015-01-23 07:51:00 Test Item Value Reference Range Interpretation Comments BUN (test code = BUN) 12 7-22 [facility]2015-01-23 07:51:00 Test Item Value Reference Range Interpretation Comments Creatinine Lvl (test code = Creatinine 0.8 0.5-1.4 Lvl) [facility]2015-01-23 07:51:00 Test Item Value Reference Range Interpretation Comments AGAP (test code = AGAP) 11.9 10.0-20.0 [facility]2015-01-23 07:51:00 Test Item Value Reference Range Interpretation Comments B/C Ratio (test code = B/C Ratio) 15 6-25 [id number] 07:51:00 Test Item Value Reference Range Interpretation Comments Globulin (test code = Globulin) 3.9 2.0-4.0 [facility] [id number] 07:51:00 Test Item Value Reference Range Interpretation Comments A/G Ratio (test code = A/G Ratio) 0.9 0.7-1.6 [facility]XDSXB1790[facility]-86 07:51:00 Test Item Value Reference Range Interpretation Comments hCG Tot (test code = hCG Tot) no gt [facility]XwlazxgHWIHRLVIPK7996-11-45 07:51:00 Test Item Value Reference Range Interpretation Comments MCHC (test code = MCHC) 33.8 32.0-36.0 [facility] WorthWtcqfarXREVKENWVJ7708-90-58 07:51:00 Test Item Value Reference Range Interpretation Comments MCH (test code = MCH) 30.3 pg 27.0-31.0 [facility] WorthBgbzycaGMRKOHZREZ1735-16-09 07:51:00 Test Item Value Reference Range Interpretation Comments RDW (test code = RDW) 13.0 11.5-14.5 [facility] WorthChrfwrjCDPNMDJFYP6231-56-19 07:51:00 Test Item Value Reference Range Interpretation Comments MPV (test code = MPV) 8.4 7.4-10.4 [facility] WorthYcglomtCGEEUIAQVA7000-79-13 07:51:00 Test Item Value Reference Range Interpretation Comments Platelet (test code = Platelet) 356 133-450 [facility] WorthWynlxcuRBDKRCFPYA1797-27-28 07:51:00 Test Item Value Reference Range Interpretation Comments RBC (test code = RBC) 4.45 4.20-5.40 [facility] WorthByqkjjuKTMWHWOJQK7055-36-11 07:51:00 Test Item Value Reference Range Interpretation Comments WBC (test code = WBC) 12.9 3.7-10.4 [facility] WorthMcsrujzXZUALSZNYD9547-31-78 07:51:00 Test Item Value Reference Range Interpretation Comments Hgb (test code = Hgb) 13.5 12.0-16.0 [facility] WorthQinwahhMHWXFIDDRY5250-43-89 07:51:00 Test Item Value Reference Range Interpretation Comments MCV (test code = MCV) 89.7 80.0-98.0 [facility] WorthAbmjuilASSOPMJDEF4894-56-32 07:51:00 Test Item Value Reference Range Interpretation Comments Hct (test code = Hct) 39.9 36.0-48.0 [facility] WorthDqoioqkKTEMIRISLT9868-56-66 07:51:00 Test Item Value Reference Range Interpretation Comments Eosinophils # (test code 0.3 See_Comment [A utomated message] The = Eosinophils #) system whic h generated this result tra nsmitted reference range : <=0.5. The reference r ozzy was not used to int erpret this result as normal/abnormal . [facility] WorthLogcotdPOUZOGRVDE0569-03-61 07:51:00 Test Item Value Reference Range Interpretation Comments Lymphocytes # (test code = Lymphocytes 3.6 1.0-5.5 #) [facility] WorthUvsavokFFMBMNFLXW6819-36-26 07:51:00 Test Item Value Reference Range Interpretation Comments Monocytes # (test code 0.7 See_Comment [Aut omated message] The = Monocytes #) system which generated this result tra nsmitted reference range : <=0.8. The reference r ozzy was not used to int erpret this result as normal/abnormal . [facility] WorthEftrzocHFCCCBYNJJ6891-44-54 07:51:00 Test Item Value Reference Range Interpretation Comments Segs (test code = Segs) 63.9 45.0-75.0 [facility] WorthOjrmrvoKCOWLHQXOC7312-17-54 07:51:00 Test Item Value Reference Range Interpretation Comments Segs-Bands # (test code = Segs-Bands #) 8.2 1.5-8.1 [facility] WorthPjlkxysZCYEEHEIAM8476-29-08 07:51:00 Test Item Value Reference Range Interpretation Comments Basophils (test code = 0.7 See_Comment [Aut omated message] The Basophils) system which ge nerated this result tra nsmitted reference range : <=1.0. The reference r ozzy was not used to int erpret this result as normal/abnormal . [facility] WorthEsldkqbGWGPMXQUPJ0050-11-71 07:51:00 Test Item Value Reference Range Interpretation Comments Monocytes (test code = Monocytes) 5.4 2.0-12.0 [facility] WorthVykqumsHJDRQBEQNY8133-62-44 07:51:00 Test Item Value Reference Range Interpretation Comments Eosinophils (test code = 2.3 See_Comment [A utomated message] The Eosinophils) system which ge nerated this result tra nsmitted reference range : <=4.0. The reference r ozzy was not used to int erpret this result as normal/abnormal . [facility] WorthUpfsaseRHYZENQUOL0522-61-19 07:51:00 Test Item Value Reference Range Interpretation Comments Lymphocytes (test code = Lymphocytes) 27.7 20.0-40.0 [facility] WorthFtgzzhhWONVWKDEBD1573-38-52 07:51:00 Test Item Value Reference Range Interpretation Comments Basophils # (test code 0.1 See_Comment [Aut omated message] The = Basophils #) system which generated this result tra nsmitted reference range : <=0.2. The reference r ozzy was not used to int erpret this result as normal/abnormal . [facility] AND [id number] 07:51:00 Test Item Value Reference Range Interpretation Comments UA Urobilinogen (test code = UA 1.0 0.1-1.0 Urobilinogen) [facility] AND [id number] 07:51:00 Test Item Value Reference Range Interpretation Comments UA Turbidity (test code Cloudy *ABN*(09/04/14 = UA Turbidity) 1:51 AM) [facility] AND [id number] 07:51:00 Test Item Value Reference Range Interpretation Comments UA Color (test code = Red *ABN*(09/04/14 1:51 UA Color) AM) [facility] AND [id number] 07:51:00 Test Item Value Reference Range Interpretation Comments UA Ketones (test code Negative *NA*(09/04/14 = UA Ketones) 1:51 AM) [facility] AND [id number] 07:51:00 Test Item Value Reference Range Interpretation Comments UA Glucose (test code Negative (09/04/14 1:51 = UA Glucose) AM) [facility] AND [id number] 07:51:00 Test Item Value Reference Range Interpretation Comments UA Protein (test code = Trace *ABN*(09/04/14 UA Protein) 1:51 AM) [facility] AND [id number] 07:51:00 Test Item Value Reference Range Interpretation Comments UA pH (test code = UA pH) 8.0 1 5.0-8.0 [facility] AND [id number] 07:51:00 Test Item Value Reference Range Interpretation Comments UA Spec Grav (test code = UA Spec 1.015 1 Grav) [facility] AND [id number] 07:51:00 Test Item Value Reference Range Interpretation Comments UA Bili (test code = Negative *NA*(09/04/14 UA Bili) 1:51 AM) [facility] AND [id number] 07:51:00 Test Item Value Reference Range Interpretation Comments UA Blood (test code = Large *ABN*(09/04/14 UA Blood) 1:51 AM) [facility] AND [id number] 07:51:00 Test Item Value Reference Range Interpretation Comments UA Leuk Est (test Negative (09/04/14 1:51 code = UA Leuk Est) AM) [facility] AND [id number] 07:51:00 Test Item Value Reference Range Interpretation Comments UA Nitrite (test code Negative (09/04/14 1:51 = UA Nitrite) AM) [facility] AND [id number] 07:51:00 Test Item Value Reference Range Interpretation Comments UA Amorph Joselin (test code = UA Few /HPF Amorph Joselin) [facility] AND [id number] 07:51:00 Test Item Value Reference Range Interpretation Comments UA RBC (test code 51-100 /HPF See_Comment [Automate d message] The = UA RBC) system which ge nerated this result tra nsmitted reference range : <=2. The reference r ozzy was not used to int erpret this result as normal/abnormal . [facility] AND [id number] 07:51:00 Test Item Value Reference Range Interpretation Comments UA WBC (test code = UA WBC) 6-10 /HPF [facility] AND [id number] 07:51:00 Test Item Value Reference Range Interpretation Comments UA Bacteria (test code = UA Few /HPF Bacteria) [facility] AND [id number] 07:51:00 Test Item Value Reference Range Interpretation Comments UA Sq Epi (test code = UA Sq Occasional /LPF Epi) [facility] [id number] 07:51:00 Test Item Value Reference Range Interpretation Comments ABO/Rh (test code = ABO/Rh) A POS [facility] [id number] 07:51:00 Test Item Value Reference Range Interpretation Comments Antibody Scrn (test Negative (09/04/14 1:51 code = Antibody Scrn) AM) [facility]2015-01-23 07:51:00 Test Item Value Reference Range Interpretation Comments Albumin Lvl (test code = Albumin Lvl) 3.4 3.5-5.0 [facility]2015-01-23 07:51:00 Test Item Value Reference Range Interpretation Comments Alk Phos (test code = Alk Phos) 64 39-136 [facility]2015-01-23 07:51:00 Test Item Value Reference Range Interpretation Comments ALT (test code = ALT) 18 See_Comment [Auto mated message] The system which ge nerated this result transmit gaye reference range : <=65. The reference range was not used to interpr et this result as satish l/abnormal. [facility] [id number] 07:51:00 Test Item Value Reference Range Interpretation Comments AST (test code = AST) 12 See_Comment [Auto mated message] The system which ge nerated this result transmit gaye reference range : <=37. The reference range was not used to interpr et this result as satish l/abnormal. [facility] [id number] 07:51:00 Test Item Value Reference Range Interpretation Comments eGFR (test code = eGFR) 93 [facility]2015-01-23 07:51:00 Test Item Value Reference Range Interpretation Comments Bili Total (test code = Bili Total) 0.3 0.2-1.3 [facility]2015-01-23 07:51:00 Test Item Value Reference Range Interpretation Comments Chloride Lvl (test code = Chloride Lvl) 108 95-109 [facility] [id number] 07:51:00 Test Item Value Reference Range Interpretation Comments Sodium Lvl (test code = Sodium Lvl) 138 135-145 [facility] [id number] 07:51:00 Test Item Value Reference Range Interpretation Comments Potassium Lvl (test code = Potassium 3.9 3.5-5.1 Lvl) [facility]2015-01-23 07:51:00 Test Item Value Reference Range Interpretation Comments CO2 (test code = CO2) 22 24-32 [facility]2015-01-23 07:51:00 Test Item Value Reference Range Interpretation Comments Calcium Lvl (test code = Calcium Lvl) 8.8 8.5-10.5 [facility]2015-01-23 07:51:00 Test Item Value Reference Range Interpretation Comments Glucose Lvl (test code = Glucose Lvl) 98 70-99 [facility]2015-01-23 07:51:00 Test Item Value Reference Range Interpretation Comments Total Protein (test code = Total 7.3 6.4-8.4 Protein) [facility]2015-01-23 07:51:00 Test Item Value Reference Range Interpretation Comments BUN (test code = BUN) 12 7- [facility]2015-01-23 07:51:00 Test Item Value Reference Range Interpretation Comments Creatinine Lvl (test code = Creatinine 0.8 0.5-1.4 Lvl) [facility]2015-01-23 07:51:00 Test Item Value Reference Range Interpretation Comments AGAP (test code = AGAP) 11.9 10.0-20.0 [facility]2015-01-23 07:51:00 Test Item Value Reference Range Interpretation Comments B/C Ratio (test code = B/C Ratio) 15 6-25 [facility]2015-01-23 07:51:00 Test Item Value Reference Range Interpretation Comments Globulin (test code = Globulin) 3.9 2.0-4.0 [facility]2015-01-23 07:51:00 Test Item Value Reference Range Interpretation Comments A/G Ratio (test code = A/G Ratio) 0.9 0.7-1.6 [facility]naaedmHMZRUOPHFNPTH2352-13-50 07:51:00 Test Item Value Reference Range Interpretation Comments hCG Tot (test code = hCG Tot) no gt [facility] WorthGpeevquJAHDHYBFOK8337-10-21 07:51:00 Test Item Value Reference Range Interpretation Comments MCHC (test code = MCHC) 33.8 32.0-36.0 [facility] WorthQtuhjxgIUJENRLLYS0562-51-34 07:51:00 Test Item Value Reference Range Interpretation Comments MCH (test code = MCH) 30.3 pg 27.0-31.0 [facility] [id number] 07:51:00 Test Item Value Reference Range Interpretation Comments RDW (test code = RDW) 13.0 11.5-14.5 [facility] WorthCqccuzuZNVTTSEAXF5341-42-64 07:51:00 Test Item Value Reference Range Interpretation Comments MPV (test code = MPV) 8.4 7.4-10.4 [facility] WorthBnqkbroGVJJISCHWW2219-62-00 07:51:00 Test Item Value Reference Range Interpretation Comments Platelet (test code = Platelet) 356 133-450 [facility] WorthRdhmstwPXMZNXRMLI7605-42-94 07:51:00 Test Item Value Reference Range Interpretation Comments RBC (test code = RBC) 4.45 4.20-5.40 [facility] WorthOiaqxstXOFUPFVPFL6430-12-13 07:51:00 Test Item Value Reference Range Interpretation Comments WBC (test code = WBC) 12.9 3.7-10.4 [facility] WorthXixxfewVPFPOQPSCO1229-30-12 07:51:00 Test Item Value Reference Range Interpretation Comments Hgb (test code = Hgb) 13.5 12.0-16.0 [facility] WorthHxbbpgbOOGZNOBIOO7418-52-09 07:51:00 Test Item Value Reference Range Interpretation Comments MCV (test code = MCV) 89.7 80.0-98.0 [facility] WorthFdteyztZJGGEKEGRA6129-16-98 07:51:00 Test Item Value Reference Range Interpretation Comments Hct (test code = Hct) 39.9 36.0-48.0 [facility] WorthVearnmuSYARSVSKFY0974-24-52 07:51:00 Test Item Value Reference Range Interpretation Comments Eosinophils # (test code 0.3 See_Comment [A utomated message] The = Eosinophils #) system whic h generated this result tra nsmitted reference range : <=0.5. The reference r ozzy was not used to int erpret this result as normal/abnormal . [facility] WorthXdnfxjsKJCEKTFDLI0123-84-94 07:51:00 Test Item Value Reference Range Interpretation Comments Lymphocytes # (test code = Lymphocytes 3.6 1.0-5.5 #) [facility] WorthSvkktplETESAFRZQC4002-68-86 07:51:00 Test Item Value Reference Range Interpretation Comments Monocytes # (test code 0.7 See_Comment [Aut omated message] The = Monocytes #) system which generated this result tra nsmitted reference range : <=0.8. The reference r ozzy was not used to int erpret this result as normal/abnormal . [facility] WorthAbjjaujAZXNATZUCJ8127-10-68 07:51:00 Test Item Value Reference Range Interpretation Comments Segs (test code = Segs) 63.9 45.0-75.0 [facility] WorthQihocikDHDJHMLLMN7122-29-33 07:51:00 Test Item Value Reference Range Interpretation Comments Segs-Bands # (test code = Segs-Bands #) 8.2 1.5-8.1 [facility] WorthIjzsioyHMCPUSPSNW8713-69-97 07:51:00 Test Item Value Reference Range Interpretation Comments Basophils (test code = 0.7 See_Comment [Aut omated message] The Basophils) system which ge nerated this result tra nsmitted reference range : <=1.0. The reference r ozzy was not used to int erpret this result as normal/abnormal . [facility] WorthHjdhdwcUTTFRRTKHP6912-69-24 07:51:00 Test Item Value Reference Range Interpretation Comments Monocytes (test code = Monocytes) 5.4 2.0-12.0 [facility] WorthGyazfanPPBRGWPJWI5964-00-16 07:51:00 Test Item Value Reference Range Interpretation Comments Eosinophils (test code = 2.3 See_Comment [A utomated message] The Eosinophils) system which ge nerated this result tra nsmitted reference range : <=4.0. The reference r ozzy was not used to int erpret this result as normal/abnormal . [facility] [id number] 07:51:00 Test Item Value Reference Range Interpretation Comments Lymphocytes (test code = Lymphocytes) 27.7 20.0-40.0 [facility] [id number] 07:51:00 Test Item Value Reference Range Interpretation Comments Basophils # (test code 0.1 See_Comment [Aut omated message] The = Basophils #) system which generated this result tra nsmitted reference range : <=0.2. The reference r ozzy was not used to int erpret this result as normal/abnormal . [facility]2015-01-23 07:51:00 Test Item Value Reference Range Interpretation Comments UA Urobilinogen (test code = UA 1.0 0.1-1.0 Urobilinogen) [facility]2015-01-23 07:51:00 Test Item Value Reference Range Interpretation Comments UA Turbidity (test code Cloudy *ABN*(09/04/14 = UA Turbidity) 1:51 AM) [facility] AND [id number] 07:51:00 Test Item Value Reference Range Interpretation Comments UA Color (test code = Red *ABN*(09/04/14 1:51 UA Color) AM) [facility] AND [id number] 07:51:00 Test Item Value Reference Range Interpretation Comments UA Ketones (test code Negative *NA*(09/04/14 = UA Ketones) 1:51 AM) [facility] AND [id number] 07:51:00 Test Item Value Reference Range Interpretation Comments UA Glucose (test code Negative (09/04/14 1:51 = UA Glucose) AM) [facility] AND [id number] 07:51:00 Test Item Value Reference Range Interpretation Comments UA Protein (test code = Trace *ABN*(09/04/14 UA Protein) 1:51 AM) [facility] AND [id number] 07:51:00 Test Item Value Reference Range Interpretation Comments UA pH (test code = UA pH) 8.0 1 5.0-8.0 [facility] AND [id number] 07:51:00 Test Item Value Reference Range Interpretation Comments UA Spec Grav (test code = UA Spec 1.015 1 Grav) [facility] AND [id number] 07:51:00 Test Item Value Reference Range Interpretation Comments UA Bili (test code = Negative *NA*(09/04/14 UA Bili) 1:51 AM) [facility] AND [id number] 07:51:00 Test Item Value Reference Range Interpretation Comments UA Blood (test code = Large *ABN*(09/04/14 UA Blood) 1:51 AM) [facility] AND [id number] 07:51:00 Test Item Value Reference Range Interpretation Comments UA Leuk Est (test Negative (09/04/14 1:51 code = UA Leuk Est) AM) [facility] AND [id number] 07:51:00 Test Item Value Reference Range Interpretation Comments UA Nitrite (test code Negative (09/04/14 1:51 = UA Nitrite) AM) [facility] [id number] 07:51:00 Test Item Value Reference Range Interpretation Comments UA Amorph Joselin (test code = UA Few /HPF Amorph Joselin) [facility] [id number] 07:51:00 Test Item Value Reference Range Interpretation Comments UA RBC (test code 51-100 /HPF See_Comment [Automate d message] The = UA RBC) system which ge nerated this result tra nsmitted reference range : <=2. The reference r ozzy was not used to int erpret this result as normal/abnormal . [facility] AND [id number] 07:51:00 Test Item Value Reference Range Interpretation Comments UA WBC (test code = UA WBC) 6-10 /HPF [facility] AND [id number] 07:51:00 Test Item Value Reference Range Interpretation Comments UA Bacteria (test code = UA Few /HPF Bacteria) [facility] AND [id number] 07:51:00 Test Item Value Reference Range Interpretation Comments UA Sq Epi (test code = UA Sq Occasional /LPF Epi) [facility] [employer] [id number] 07:51:00 Test Item Value Reference Range Interpretation Comments ABO/Rh (test code = ABO/Rh) A POS [facility] [employer] [id number] 07:51:00 Test Item Value Reference Range Interpretation Comments Antibody Scrn (test Negative (09/04/14 1:51 code = Antibody Scrn) AM) [facility] [employer] [id number] 07:51:00 Test Item Value Reference Range Interpretation Comments Albumin Lvl (test code = Albumin Lvl) 3.4 3.5-5.0 [facility] [employer] [id number] 07:51:00 Test Item Value Reference Range Interpretation Comments Alk Phos (test code = Alk Phos) 64 39-136 [facility] [employer] [id number] 07:51:00 Test Item Value Reference Range Interpretation Comments ALT (test code = ALT) 18 See_Comment [Auto mated message] The system which ge nerated this result transmit gaye reference range : <=65. The reference range was not used to interpr et this result as satish l/abnormal. [facility] [id number] 07:51:00 Test Item Value Reference Range Interpretation Comments AST (test code = AST) 12 See_Comment [Auto mated message] The system which ge nerated this result transmit gaye reference range : <=37. The reference range was not used to interpr et this result as satish l/abnormal. [facility]2015-01-23 07:51:00 Test Item Value Reference Range Interpretation Comments eGFR (test code = eGFR) 93 [facility]2015-01-23 07:51:00 Test Item Value Reference Range Interpretation Comments Bili Total (test code = Bili Total) 0.3 0.2-1.3 [facility]2015-01-23 07:51:00 Test Item Value Reference Range Interpretation Comments Chloride Lvl (test code = Chloride Lvl) 108 95-109 [facility]2015-01-23 07:51:00 Test Item Value Reference Range Interpretation Comments Sodium Lvl (test code = Sodium Lvl) 138 135-145 [facility]2015-01-23 07:51:00 Test Item Value Reference Range Interpretation Comments Potassium Lvl (test code = Potassium 3.9 3.5-5.1 Lvl) [facility]2015-01-23 07:51:00 Test Item Value Reference Range Interpretation Comments CO2 (test code = CO2) 22 24-32 [facility]2015-01-23 07:51:00 Test Item Value Reference Range Interpretation Comments Calcium Lvl (test code = Calcium Lvl) 8.8 8.5-10.5 [facility]2015-01-23 07:51:00 Test Item Value Reference Range Interpretation Comments Glucose Lvl (test code = Glucose Lvl) 98 70-99 [facility]2015-01-23 07:51:00 Test Item Value Reference Range Interpretation Comments Total Protein (test code = Total 7.3 6.4-8.4 Protein) [facility]2015-01-23 07:51:00 Test Item Value Reference Range Interpretation Comments BUN (test code = BUN) 12 7-22 [facility]2015-01-23 07:51:00 Test Item Value Reference Range Interpretation Comments Creatinine Lvl (test code = Creatinine 0.8 0.5-1.4 Lvl) [facility]2015-01-23 07:51:00 Test Item Value Reference Range Interpretation Comments AGAP (test code = AGAP) 11.9 10.0-20.0 [facility]2015-01-23 07:51:00 Test Item Value Reference Range Interpretation Comments B/C Ratio (test code = B/C Ratio) 15 6-25 [facility]2015-01-23 07:51:00 Test Item Value Reference Range Interpretation Comments Globulin (test code = Globulin) 3.9 2.0-4.0 [facility]2015-01-23 07:51:00 Test Item Value Reference Range Interpretation Comments A/G Ratio (test code = A/G Ratio) 0.9 0.7-1.6 [place] [id number] 07:51:00 Test Item Value Reference Range Interpretation Comments hCG Tot (test code = hCG Tot) no gt [facility] Wor[id number] 07:51:00 Test Item Value Reference Range Interpretation Comments MCHC (test code = MCHC) 33.8 32.0-36.0 [facility] WorthEkvfvbpMGHMZKEPER3656-62-68 07:51:00 Test Item Value Reference Range Interpretation Comments MCH (test code = MCH) 30.3 pg 27.0-31.0 [facility] [id number] 07:51:00 Test Item Value Reference Range Interpretation Comments RDW (test code = RDW) 13.0 11.5-14.5 [facility] [id number] 07:51:00 Test Item Value Reference Range Interpretation Comments MPV (test code = MPV) 8.4 7.4-10.4 [facility] WorthTuljjraYKJWWGLBLF7125-05-29 07:51:00 Test Item Value Reference Range Interpretation Comments Platelet (test code = Platelet) 356 133-450 [facility] WorthRbtbowuGTRGFXIJEH0669-85-04 07:51:00 Test Item Value Reference Range Interpretation Comments RBC (test code = RBC) 4.45 4.20-5.40 [facility] WorthRggvymfWCYRSLOZUS0465-52-03 07:51:00 Test Item Value Reference Range Interpretation Comments WBC (test code = WBC) 12.9 3.7-10.4 [facility] WorthKppisjeROFPEKDHGK5178-01-27 07:51:00 Test Item Value Reference Range Interpretation Comments Hgb (test code = Hgb) 13.5 12.0-16.0 [facility] WorthMoqfrixWEHSUPNDFG6051-29-69 07:51:00 Test Item Value Reference Range Interpretation Comments MCV (test code = MCV) 89.7 80.0-98.0 [facility] WorthPwdsyzjKHWKEUOLUI3362-80-83 07:51:00 Test Item Value Reference Range Interpretation Comments Hct (test code = Hct) 39.9 36.0-48.0 [facility] WorthJpheznvCXPNWSPLLG2488-03-37 07:51:00 Test Item Value Reference Range Interpretation Comments Eosinophils # (test code 0.3 See_Comment [A utomated message] The = Eosinophils #) system whic h generated this result tra nsmitted reference range : <=0.5. The reference r ozzy was not used to int erpret this result as normal/abnormal . [facility] WorthLshupvoSRJLJMFMRY7904-36-52 07:51:00 Test Item Value Reference Range Interpretation Comments Lymphocytes # (test code = Lymphocytes 3.6 1.0-5.5 #) [facility] Wor[id number] 07:51:00 Test Item Value Reference Range Interpretation Comments Monocytes # (test code 0.7 See_Comment [Aut omated message] The = Monocytes #) system which generated this result tra nsmitted reference range : <=0.8. The reference r ozzy was not used to int erpret this result as normal/abnormal . [facility] WorthQytapjkPYNTJZDOIL6850-91-25 07:51:00 Test Item Value Reference Range Interpretation Comments Segs (test code = Segs) 63.9 45.0-75.0 [facility] WorthVeohsmvHKMIKKOPZJ0354-83-08 07:51:00 Test Item Value Reference Range Interpretation Comments Segs-Bands # (test code = Segs-Bands #) 8.2 1.5-8.1 [facility] [id number] 07:51:00 Test Item Value Reference Range Interpretation Comments Basophils (test code = 0.7 See_Comment [Aut omated message] The Basophils) system which ge nerated this result tra nsmitted reference range : <=1.0. The reference r ozzy was not used to int erpret this result as normal/abnormal . [facility] Wor[id number] 07:51:00 Test Item Value Reference Range Interpretation Comments Monocytes (test code = Monocytes) 5.4 2.0-12.0 [facility] WorthOlbtcfcFGITUUTONF6628-77-41 07:51:00 Test Item Value Reference Range Interpretation Comments Eosinophils (test code = 2.3 See_Comment [A utomated message] The Eosinophils) system which ge nerated this result tra nsmitted reference range : <=4.0. The reference r ozzy was not used to int erpret this result as normal/abnormal . [facility] WorthNewrnmlQKASVHADWA2967-93-38 07:51:00 Test Item Value Reference Range Interpretation Comments Lymphocytes (test code = Lymphocytes) 27.7 20.0-40.0 [facility] Wor[id number] 07:51:00 Test Item Value Reference Range Interpretation Comments Basophils # (test code 0.1 See_Comment [Aut omated message] The = Basophils #) system which generated this result tra nsmitted reference range : <=0.2. The reference r ozzy was not used to int erpret this result as normal/abnormal . [facility]2015-01-23 07:51:00 Test Item Value Reference Range Interpretation Comments UA Urobilinogen (test code = UA 1.0 0.1-1.0 Urobilinogen) [facility] AND [id number] 07:51:00 Test Item Value Reference Range Interpretation Comments UA Turbidity (test code Cloudy *ABN*(09/04/14 = UA Turbidity) 1:51 AM) [facility] AND [id number] 07:51:00 Test Item Value Reference Range Interpretation Comments UA Color (test code = Red *ABN*(09/04/14 1:51 UA Color) AM) [facility] AND [id number] 07:51:00 Test Item Value Reference Range Interpretation Comments UA Ketones (test code Negative *NA*(09/04/14 = UA Ketones) 1:51 AM) [facility] AND [id number] 07:51:00 Test Item Value Reference Range Interpretation Comments UA Glucose (test code Negative (09/04/14 1:51 = UA Glucose) AM) [facility] AND [id number] 07:51:00 Test Item Value Reference Range Interpretation Comments UA Protein (test code = Trace *ABN*(09/04/14 UA Protein) 1:51 AM) [facility] AND [id number] 07:51:00 Test Item Value Reference Range Interpretation Comments UA pH (test code = UA pH) 8.0 1 5.0-8.0 [facility] AND [id number] 07:51:00 Test Item Value Reference Range Interpretation Comments UA Spec Grav (test code = UA Spec 1.015 1 Grav) [facility] AND [id number] 07:51:00 Test Item Value Reference Range Interpretation Comments UA Bili (test code = Negative *NA*(09/04/14 UA Bili) 1:51 AM) [facility] AND [id number] 07:51:00 Test Item Value Reference Range Interpretation Comments UA Blood (test code = Large *ABN*(09/04/14 UA Blood) 1:51 AM) [facility] AND [id number] 07:51:00 Test Item Value Reference Range Interpretation Comments UA Leuk Est (test Negative (09/04/14 1:51 code = UA Leuk Est) AM) [facility] AND [id number] 07:51:00 Test Item Value Reference Range Interpretation Comments UA Nitrite (test code Negative (09/04/14 1:51 = UA Nitrite) AM) [facility] AND [id number] 07:51:00 Test Item Value Reference Range Interpretation Comments UA Amorph Joselin (test code = UA Few /HPF Amorph Joselin) [facility] AND [id number] 07:51:00 Test Item Value Reference Range Interpretation Comments UA RBC (test code 51-100 /HPF See_Comment [Automate d message] The = UA RBC) system which ge nerated this result tra nsmitted reference range : <=2. The reference r ozzy was not used to int erpret this result as normal/abnormal . [facility] AND [id number] 07:51:00 Test Item Value Reference Range Interpretation Comments UA WBC (test code = UA WBC) 6-10 /HPF [facility] AND [id number] 07:51:00 Test Item Value Reference Range Interpretation Comments UA Bacteria (test code = UA Few /HPF Bacteria) [facility] AND [id number] 07:51:00 Test Item Value Reference Range Interpretation Comments UA Sq Epi (test code = UA Sq Occasional /LPF Epi) [facility] [employer] [id number] 07:51:00 Test Item Value Reference Range Interpretation Comments ABO/Rh (test code = ABO/Rh) A POS [facility] [employer] [id number] 07:51:00 Test Item Value Reference Range Interpretation Comments Antibody Scrn (test Negative (09/04/14 1:51 code = Antibody Scrn) AM) [facility] [employer] [id number] 07:51:00 Test Item Value Reference Range Interpretation Comments Albumin Lvl (test code = Albumin Lvl) 3.4 3.5-5.0 [facility] [employer] [id number] 07:51:00 Test Item Value Reference Range Interpretation Comments Alk Phos (test code = Alk Phos) 64 39-136 [facility] [employer] [id number] 07:51:00 Test Item Value Reference Range Interpretation Comments ALT (test code = ALT) 18 See_Comment [Auto mated message] The system which ge nerated this result transmit gaye reference range : <=65. The reference range was not used to interpr et this result as satish l/abnormal. [facility] [employer] [id number] 07:51:00 Test Item Value Reference Range Interpretation Comments AST (test code = AST) 12 See_Comment [Auto mated message] The system which ge nerated this result transmit gaye reference range : <=37. The reference range was not used to interpr et this result as satish l/abnormal. [facility] [employer] [id number] 07:51:00 Test Item Value Reference Range Interpretation Comments eGFR (test code = eGFR) 93 [facility] [employer] [id number] 07:51:00 Test Item Value Reference Range Interpretation Comments Bili Total (test code = Bili Total) 0.3 0.2-1.3 [facility] [employer] [id number] 07:51:00 Test Item Value Reference Range Interpretation Comments Chloride Lvl (test code = Chloride Lvl) 108 95-109 [facility] [employer] [id number] 07:51:00 Test Item Value Reference Range Interpretation Comments Sodium Lvl (test code = Sodium Lvl) 138 135-145 [facility] [employer] [id number] 07:51:00 Test Item Value Reference Range Interpretation Comments Potassium Lvl (test code = Potassium 3.9 3.5-5.1 Lvl) [facility]2015-01-23 07:51:00 Test Item Value Reference Range Interpretation Comments CO2 (test code = CO2) 22 24-32 [facility]2015-01-23 07:51:00 Test Item Value Reference Range Interpretation Comments Calcium Lvl (test code = Calcium Lvl) 8.8 8.5-10.5 [facility]2015-01-23 07:51:00 Test Item Value Reference Range Interpretation Comments Glucose Lvl (test code = Glucose Lvl) 98 70-99 [facility]2015-01-23 07:51:00 Test Item Value Reference Range Interpretation Comments Total Protein (test code = Total 7.3 6.4-8.4 Protein) [facility]2015-01-23 07:51:00 Test Item Value Reference Range Interpretation Comments BUN (test code = BUN) 12 - [facility]2015-01-23 07:51:00 Test Item Value Reference Range Interpretation Comments Creatinine Lvl (test code = Creatinine 0.8 0.5-1.4 Lvl) [facility]2015-01-23 07:51:00 Test Item Value Reference Range Interpretation Comments AGAP (test code = AGAP) 11.9 10.0-20.0 [facility]2015-01-23 07:51:00 Test Item Value Reference Range Interpretation Comments B/C Ratio (test code = B/C Ratio) 15 6-25 [facility]2015-01-23 07:51:00 Test Item Value Reference Range Interpretation Comments Globulin (test code = Globulin) 3.9 2.0-4.0 [facility]2015-01-23 07:51:00 Test Item Value Reference Range Interpretation Comments A/G Ratio (test code = A/G Ratio) 0.9 0.7-1.6 [facility]ABWCBNVHZAMOH8553-84-95 07:51:00 Test Item Value Reference Range Interpretation Comments hCG Tot (test code = hCG Tot) no gt [facility]gtzrsjHFFCILMOCI0315-23-96 07:51:00 Test Item Value Reference Range Interpretation Comments MCHC (test code = MCHC) 33.8 32.0-36.0 [facility] WorthMsbkrruVCEKEAVADC3988-09-45 07:51:00 Test Item Value Reference Range Interpretation Comments MCH (test code = MCH) 30.3 pg 27.0-31.0 [facility] WorthLdmnwadSXBWACSVIT8596-89-07 07:51:00 Test Item Value Reference Range Interpretation Comments RDW (test code = RDW) 13.0 11.5-14.5 [facility] WorthUlwfgckFGBAAOSUYG7334-92-12 07:51:00 Test Item Value Reference Range Interpretation Comments MPV (test code = MPV) 8.4 7.4-10.4 [facility] WorthIuagwqpLJWAFDNKJQ6268-31-04 07:51:00 Test Item Value Reference Range Interpretation Comments Platelet (test code = Platelet) 356 133-450 [facility] WorthMrpjpceGXHHFSDBOJ3090-44-66 07:51:00 Test Item Value Reference Range Interpretation Comments RBC (test code = RBC) 4.45 4.20-5.40 [facility] WorthFmohlawWULUMNCNPJ7233-37-16 07:51:00 Test Item Value Reference Range Interpretation Comments WBC (test code = WBC) 12.9 3.7-10.4 [facility] WorthFrpdxzwAIBEXLIQUF3124-38-17 07:51:00 Test Item Value Reference Range Interpretation Comments Hgb (test code = Hgb) 13.5 12.0-16.0 [facility] WorthQtdvedtUAYVMCXXOJ3541-58-82 07:51:00 Test Item Value Reference Range Interpretation Comments MCV (test code = MCV) 89.7 80.0-98.0 [facility] WorthXiizwztBQYRUJHMHC2840-08-52 07:51:00 Test Item Value Reference Range Interpretation Comments Hct (test code = Hct) 39.9 36.0-48.0 [facility] WorthUapbmvxJDFHTVFESL9663-63-06 07:51:00 Test Item Value Reference Range Interpretation Comments Eosinophils # (test code 0.3 See_Comment [A utomated message] The = Eosinophils #) system whic h generated this result tra nsmitted reference range : <=0.5. The reference r ozzy was not used to int erpret this result as normal/abnormal . [facility] WorthSwftwoxLVKYYQKIYT5403-34-43 07:51:00 Test Item Value Reference Range Interpretation Comments Lymphocytes # (test code = Lymphocytes 3.6 1.0-5.5 #) [facility] Wor[id number] 07:51:00 Test Item Value Reference Range Interpretation Comments Monocytes # (test code 0.7 See_Comment [Aut omated message] The = Monocytes #) system which generated this result tra nsmitted reference range : <=0.8. The reference r ozzy was not used to int erpret this result as normal/abnormal . [facility] WorthUzwitgxFPWLKWUZYI5815-71-43 07:51:00 Test Item Value Reference Range Interpretation Comments Segs (test code = Segs) 63.9 45.0-75.0 [facility] WorthDryudusMAYRVMHGQG2030-70-81 07:51:00 Test Item Value Reference Range Interpretation Comments Segs-Bands # (test code = Segs-Bands #) 8.2 1.5-8.1 [facility] WorthMewrlftUOCJEWYGJQ1373-18-71 07:51:00 Test Item Value Reference Range Interpretation Comments Basophils (test code = 0.7 See_Comment [Aut omated message] The Basophils) system which ge nerated this result tra nsmitted reference range : <=1.0. The reference r ozzy was not used to int erpret this result as normal/abnormal . [facility] WorthDmtelqqYYQAEFFGDV4762-59-18 07:51:00 Test Item Value Reference Range Interpretation Comments Monocytes (test code = Monocytes) 5.4 2.0-12.0 [facility] WorthWkhfmpgTZHBVITTIX1499-52-65 07:51:00 Test Item Value Reference Range Interpretation Comments Eosinophils (test code = 2.3 See_Comment [A utomated message] The Eosinophils) system which ge nerated this result tra nsmitted reference range : <=4.0. The reference r ozzy was not used to int erpret this result as normal/abnormal . [facility] WorthKlbdhemBSWSVOSZDV3131-66-94 07:51:00 Test Item Value Reference Range Interpretation Comments Lymphocytes (test code = Lymphocytes) 27.7 20.0-40.0 [facility] WorthLlzyrnwTFQHOYADIK1209-75-57 07:51:00 Test Item Value Reference Range Interpretation Comments Basophils # (test code 0.1 See_Comment [Aut omated message] The = Basophils #) system which generated this result tra nsmitted reference range : <=0.2. The reference r ozzy was not used to int erpret this result as normal/abnormal . [facility] AND [id number] 07:51:00 Test Item Value Reference Range Interpretation Comments UA Urobilinogen (test code = UA 1.0 0.1-1.0 Urobilinogen) [facility] AND [id number] 07:51:00 Test Item Value Reference Range Interpretation Comments UA Turbidity (test code Cloudy *ABN*(09/04/14 = UA Turbidity) 1:51 AM) [facility] AND [id number] 07:51:00 Test Item Value Reference Range Interpretation Comments UA Color (test code = Red *ABN*(09/04/14 1:51 UA Color) AM) [facility] AND [id number] 07:51:00 Test Item Value Reference Range Interpretation Comments UA Ketones (test code Negative *NA*(09/04/14 = UA Ketones) 1:51 AM) [facility] AND [id number] 07:51:00 Test Item Value Reference Range Interpretation Comments UA Glucose (test code Negative (09/04/14 1:51 = UA Glucose) AM) [facility] AND [id number] 07:51:00 Test Item Value Reference Range Interpretation Comments UA Protein (test code = Trace *ABN*(09/04/14 UA Protein) 1:51 AM) [facility] AND [id number] 07:51:00 Test Item Value Reference Range Interpretation Comments UA pH (test code = UA pH) 8.0 1 5.0-8.0 [facility] AND [id number] 07:51:00 Test Item Value Reference Range Interpretation Comments UA Spec Grav (test code = UA Spec 1.015 1 Grav) [facility] AND [id number] 07:51:00 Test Item Value Reference Range Interpretation Comments UA Bili (test code = Negative *NA*(09/04/14 UA Bili) 1:51 AM) [facility] AND [id number] 07:51:00 Test Item Value Reference Range Interpretation Comments UA Blood (test code = Large *ABN*(09/04/14 UA Blood) 1:51 AM) [facility] AND [id number] 07:51:00 Test Item Value Reference Range Interpretation Comments UA Leuk Est (test Negative (09/04/14 1:51 code = UA Leuk Est) AM) [facility] AND [id number] 07:51:00 Test Item Value Reference Range Interpretation Comments UA Nitrite (test code Negative (09/04/14 1:51 = UA Nitrite) AM) [facility] AND [id number] 07:51:00 Test Item Value Reference Range Interpretation Comments UA Amorph Joselin (test code = UA Few /HPF Amorph Joselin) [facility] AND [id number] 07:51:00 Test Item Value Reference Range Interpretation Comments UA RBC (test code 51-100 /HPF See_Comment [Automate d message] The = UA RBC) system which ge nerated this result tra nsmitted reference range : <=2. The reference r ozzy was not used to int erpret this result as normal/abnormal . [facility] AND [id number] 07:51:00 Test Item Value Reference Range Interpretation Comments UA WBC (test code = UA WBC) 6-10 /HPF [facility] AND [id number] 07:51:00 Test Item Value Reference Range Interpretation Comments UA Bacteria (test code = UA Few /HPF Bacteria) [facility] AND [id number] 07:51:00 Test Item Value Reference Range Interpretation Comments UA Sq Epi (test code = UA Sq Occasional /LPF Epi) [facility] [employer] [id number] 07:51:00 Test Item Value Reference Range Interpretation Comments ABO/Rh (test code = ABO/Rh) A POS [facility] [employer] [id number] 07:51:00 Test Item Value Reference Range Interpretation Comments Antibody Scrn (test Negative (09/04/14 1:51 code = Antibody Scrn) AM) [facility] [employer] [id number] 07:51:00 Test Item Value Reference Range Interpretation Comments Albumin Lvl (test code = Albumin Lvl) 3.4 3.5-5.0 [facility] [employer] [id number] 07:51:00 Test Item Value Reference Range Interpretation Comments Alk Phos (test code = Alk Phos) 64 39-136 [facility] [employer] [id number] 07:51:00 Test Item Value Reference Range Interpretation Comments ALT (test code = ALT) 18 See_Comment [Auto mated message] The system which ge nerated this result transmit gaye reference range : <=65. The reference range was not used to interpr et this result as satish l/abnormal. [facility]2015-01-23 07:51:00 Test Item Value Reference Range Interpretation Comments AST (test code = AST) 12 See_Comment [Auto mated message] The system which ge nerated this result transmit gaye reference range : <=37. The reference range was not used to interpr et this result as satish l/abnormal. [facility]2015-01-23 07:51:00 Test Item Value Reference Range Interpretation Comments eGFR (test code = eGFR) 93 [facility]2015-01-23 07:51:00 Test Item Value Reference Range Interpretation Comments Bili Total (test code = Bili Total) 0.3 0.2-1.3 [place] [id number] 07:51:00 Test Item Value Reference Range Interpretation Comments Chloride Lvl (test code = Chloride Lvl) 108 95-109 [facility]2015-01-23 07:51:00 Test Item Value Reference Range Interpretation Comments Sodium Lvl (test code = Sodium Lvl) 138 135-145 [facility] [id number] 07:51:00 Test Item Value Reference Range Interpretation Comments Potassium Lvl (test code = Potassium 3.9 3.5-5.1 Lvl) [facility]2015-01-23 07:51:00 Test Item Value Reference Range Interpretation Comments CO2 (test code = CO2) 22 24-32 [facility]2015-01-23 07:51:00 Test Item Value Reference Range Interpretation Comments Calcium Lvl (test code = Calcium Lvl) 8.8 8.5-10.5 [facility]2015-01-23 07:51:00 Test Item Value Reference Range Interpretation Comments Glucose Lvl (test code = Glucose Lvl) 98 70-99 [facility]2015-01-23 07:51:00 Test Item Value Reference Range Interpretation Comments Total Protein (test code = Total 7.3 6.4-8.4 Protein) [place] [id number] 07:51:00 Test Item Value Reference Range Interpretation Comments BUN (test code = BUN) 12 7-22 [facility]2015-01-23 07:51:00 Test Item Value Reference Range Interpretation Comments Creatinine Lvl (test code = Creatinine 0.8 0.5-1.4 Lvl) [facility]2015-01-23 07:51:00 Test Item Value Reference Range Interpretation Comments AGAP (test code = AGAP) 11.9 10.0-20.0 [facility]2015-01-23 07:51:00 Test Item Value Reference Range Interpretation Comments B/C Ratio (test code = B/C Ratio) 15 6-25 [facility]2015-01-23 07:51:00 Test Item Value Reference Range Interpretation Comments Globulin (test code = Globulin) 3.9 2.0-4.0 [facility]2015-01-23 07:51:00 Test Item Value Reference Range Interpretation Comments A/G Ratio (test code = A/G Ratio) 0.9 0.7-1.6 [facility]metSIBZIHTUOIHNY3205-00-04 07:51:00 Test Item Value Reference Range Interpretation Comments hCG Tot (test code = hCG Tot) no gt [id number] 07:51:00 Test Item Value Reference Range Interpretation Comments MCHC (test code = MCHC) 33.8 32.0-36.0 [facility] [id number] 07:51:00 Test Item Value Reference Range Interpretation Comments MCH (test code = MCH) 30.3 pg 27.0-31.0 [facility] [id number] 07:51:00 Test Item Value Reference Range Interpretation Comments RDW (test code = RDW) 13.0 11.5-14.5 [facility] [id number] 07:51:00 Test Item Value Reference Range Interpretation Comments MPV (test code = MPV) 8.4 7.4-10.4 [facility] WorthYgvwnubFWKCUEWKSE5999-32-06 07:51:00 Test Item Value Reference Range Interpretation Comments Platelet (test code = Platelet) 356 133-450 [facility] WorthCyuxwqrHMTGTCGCWK5247-54-68 07:51:00 Test Item Value Reference Range Interpretation Comments RBC (test code = RBC) 4.45 4.20-5.40 [facility] WorthNgdgbgkEOULFJVLCO1497-50-08 07:51:00 Test Item Value Reference Range Interpretation Comments WBC (test code = WBC) 12.9 3.7-10.4 [facility] [id number] 07:51:00 Test Item Value Reference Range Interpretation Comments Hgb (test code = Hgb) 13.5 12.0-16.0 [facility] WorthSxtzecgCTHVNNHWGJ2043-07-70 07:51:00 Test Item Value Reference Range Interpretation Comments MCV (test code = MCV) 89.7 80.0-98.0 [facility] WorthNkifsehAYYAMFQBKF0304-59-43 07:51:00 Test Item Value Reference Range Interpretation Comments Hct (test code = Hct) 39.9 36.0-48.0 [facility] WorthHhyemwiLFHFGIZWSR1376-70-49 07:51:00 Test Item Value Reference Range Interpretation Comments Eosinophils # (test code 0.3 See_Comment [A utomated message] The = Eosinophils #) system whic h generated this result tra nsmitted reference range : <=0.5. The reference r ozzy was not used to int erpret this result as normal/abnormal . [facility] WorthGovuiyoUOSPLTSIWK5709-41-47 07:51:00 Test Item Value Reference Range Interpretation Comments Lymphocytes # (test code = Lymphocytes 3.6 1.0-5.5 #) [facility] WorthCndwfwvSPWJEBMPQL8961-31-87 07:51:00 Test Item Value Reference Range Interpretation Comments Monocytes # (test code 0.7 See_Comment [Aut omated message] The = Monocytes #) system which generated this result tra nsmitted reference range : <=0.8. The reference r ozzy was not used to int erpret this result as normal/abnormal . [facility] WorthMdwqwlyYLVMRFDVYI9499-44-70 07:51:00 Test Item Value Reference Range Interpretation Comments Segs (test code = Segs) 63.9 45.0-75.0 [facility] WorthLjzgurqNITXGJVFKP2959-68-86 07:51:00 Test Item Value Reference Range Interpretation Comments Segs-Bands # (test code = Segs-Bands #) 8.2 1.5-8.1 [facility] WorthOkwzymxBVSPEIAVPB2262-84-64 07:51:00 Test Item Value Reference Range Interpretation Comments Basophils (test code = 0.7 See_Comment [Aut omated message] The Basophils) system which ge nerated this result tra nsmitted reference range : <=1.0. The reference r ozzy was not used to int erpret this result as normal/abnormal . [facility] WorthBemqsdcMSVXSVMIEH7858-26-38 07:51:00 Test Item Value Reference Range Interpretation Comments Monocytes (test code = Monocytes) 5.4 2.0-12.0 [facility] WorthAgeghxuIWQQWUOVTL5089-95-55 07:51:00 Test Item Value Reference Range Interpretation Comments Eosinophils (test code = 2.3 See_Comment [A utomated message] The Eosinophils) system which ge nerated this result tra nsmitted reference range : <=4.0. The reference r ozzy was not used to int erpret this result as normal/abnormal . [facility] Wor[id number] 07:51:00 Test Item Value Reference Range Interpretation Comments Lymphocytes (test code = Lymphocytes) 27.7 20.0-40.0 [facility] WorthKgymsrqBDYAJSSQRM0740-32-95 07:51:00 Test Item Value Reference Range Interpretation Comments Basophils # (test code 0.1 See_Comment [Aut omated message] The = Basophils #) system which generated this result tra nsmitted reference range : <=0.2. The reference r ozzy was not used to int erpret this result as normal/abnormal . [facility]2015-01-23 07:51:00 Test Item Value Reference Range Interpretation Comments UA Urobilinogen (test code = UA 1.0 0.1-1.0 Urobilinogen) [facility] AND [id number] 07:51:00 Test Item Value Reference Range Interpretation Comments UA Turbidity (test code Cloudy *ABN*(09/04/14 = UA Turbidity) 1:51 AM) [facility]2015-01-23 07:51:00 Test Item Value Reference Range Interpretation Comments UA Color (test code = Red *ABN*(09/04/14 1:51 UA Color) AM) [facility]2015-01-23 07:51:00 Test Item Value Reference Range Interpretation Comments UA Ketones (test code Negative *NA*(09/04/14 = UA Ketones) 1:51 AM) [facility]2015-01-23 07:51:00 Test Item Value Reference Range Interpretation Comments UA Glucose (test code Negative (09/04/14 1:51 = UA Glucose) AM) [facility] AND [id number] 07:51:00 Test Item Value Reference Range Interpretation Comments UA Protein (test code = Trace *ABN*(09/04/14 UA Protein) 1:51 AM) [facility] AND [id number] 07:51:00 Test Item Value Reference Range Interpretation Comments UA pH (test code = UA pH) 8.0 1 5.0-8.0 [facility] AND [id number] 07:51:00 Test Item Value Reference Range Interpretation Comments UA Spec Grav (test code = UA Spec 1.015 1 Grav) [facility] AND [id number] 07:51:00 Test Item Value Reference Range Interpretation Comments UA Bili (test code = Negative *NA*(09/04/14 UA Bili) 1:51 AM) [facility] AND [id number] 07:51:00 Test Item Value Reference Range Interpretation Comments UA Blood (test code = Large *ABN*(09/04/14 UA Blood) 1:51 AM) [facility] AND [id number] 07:51:00 Test Item Value Reference Range Interpretation Comments UA Leuk Est (test Negative (09/04/14 1:51 code = UA Leuk Est) AM) [facility] AND [id number] 07:51:00 Test Item Value Reference Range Interpretation Comments UA Nitrite (test code Negative (09/04/14 1:51 = UA Nitrite) AM) [facility] AND [id number] 07:51:00 Test Item Value Reference Range Interpretation Comments UA Amorph Joselin (test code = UA Few /HPF Amorph Joselin) [facility] AND [id number] 07:51:00 Test Item Value Reference Range Interpretation Comments UA RBC (test code 51-100 /HPF See_Comment [Automate d message] The = UA RBC) system which ge nerated this result tra nsmitted reference range : <=2. The reference r ozzy was not used to int erpret this result as normal/abnormal . [facility] AND [id number] 07:51:00 Test Item Value Reference Range Interpretation Comments UA WBC (test code = UA WBC) 6-10 /HPF [facility] AND [id number] 07:51:00 Test Item Value Reference Range Interpretation Comments UA Bacteria (test code = UA Few /HPF Bacteria) [facility] AND [id number] 07:51:00 Test Item Value Reference Range Interpretation Comments UA Sq Epi (test code = UA Sq Occasional /LPF Epi) [facility] [id number] 07:51:00 Test Item Value Reference Range Interpretation Comments ABO/Rh (test code = ABO/Rh) A POS [facility] [id number] 07:51:00 Test Item Value Reference Range Interpretation Comments Antibody Scrn (test Negative (09/04/14 1:51 code = Antibody Scrn) AM) [facility] [employer] [id number] 07:51:00 Test Item Value Reference Range Interpretation Comments Albumin Lvl (test code = Albumin Lvl) 3.4 3.5-5.0 [facility] [employer] [facility] [id number] 07:51:00 Test Item Value Reference Range Interpretation Comments Alk Phos (test code = Alk Phos) 64 39-136 [facility] [employer] [facility] [id number] 07:51:00 Test Item Value Reference Range Interpretation Comments ALT (test code = ALT) 18 See_Comment [Auto mated message] The system which ge nerated this result transmit gaye reference range : <=65. The reference range was not used to interpr et this result as satish l/abnormal. [facility] [employer] [id number] 07:51:00 Test Item Value Reference Range Interpretation Comments AST (test code = AST) 12 See_Comment [Auto mated message] The system which ge nerated this result transmit gaye reference range : <=37. The reference range was not used to interpr et this result as satish l/abnormal. [facility] [employer] [id number] 07:51:00 Test Item Value Reference Range Interpretation Comments eGFR (test code = eGFR) 93 [facility] [id number] 07:51:00 Test Item Value Reference Range Interpretation Comments Bili Total (test code = Bili Total) 0.3 0.2-1.3 [facility] [employer] [facility] [id number] 07:51:00 Test Item Value Reference Range Interpretation Comments Chloride Lvl (test code = Chloride Lvl) 108 95-109 [facility] [employer] [facility] [id number] 07:51:00 Test Item Value Reference Range Interpretation Comments Sodium Lvl (test code = Sodium Lvl) 138 135-145 [facility]Job1001[id number] 07:51:00 Test Item Value Reference Range Interpretation Comments Potassium Lvl (test code = Potassium 3.9 3.5-5.1 Lvl) [facility] [employer] [facility] [id number] 07:51:00 Test Item Value Reference Range Interpretation Comments CO2 (test code = CO2) 22 24-32 [facility] [id number] 07:51:00 Test Item Value Reference Range Interpretation Comments Calcium Lvl (test code = Calcium Lvl) 8.8 8.5-10.5 [facility] [id number] 07:51:00 Test Item Value Reference Range Interpretation Comments Glucose Lvl (test code = Glucose Lvl) 98 70-99 [facility] [employer] [facility] [id number] 07:51:00 Test Item Value Reference Range Interpretation Comments Total Protein (test code = Total 7.3 6.4-8.4 Protein) [facility] [id number] 07:51:00 Test Item Value Reference Range Interpretation Comments BUN (test code = BUN) 12 - [facility] [id number] 07:51:00 Test Item Value Reference Range Interpretation Comments Creatinine Lvl (test code = Creatinine 0.8 0.5-1.4 Lvl) [facility] [employer] [facility] [id number] 07:51:00 Test Item Value Reference Range Interpretation Comments AGAP (test code = AGAP) 11.9 10.0-20.0 [facility] [employer] [facility] [id number] 07:51:00 Test Item Value Reference Range Interpretation Comments B/C Ratio (test code = B/C Ratio) 15 6- [facility] [employer] [id number] 07:51:00 Test Item Value Reference Range Interpretation Comments ABO/Rh (test code = ABO/Rh) A POS [facility] [employer] [id number] 07:51:00 Test Item Value Reference Range Interpretation Comments Antibody Scrn (test Negative (09/04/14 1:51 code = Antibody Scrn) AM) [facility] [employer] [facility] [id number] 07:51:00 Test Item Value Reference Range Interpretation Comments Albumin Lvl (test code = Albumin Lvl) 3.4 3.5-5.0 [facility]2015-01-23 07:51:00 Test Item Value Reference Range Interpretation Comments Alk Phos (test code = Alk Phos) 64 39-136 [facility]2015-01-23 07:51:00 Test Item Value Reference Range Interpretation Comments ALT (test code = ALT) 18 See_Comment [Auto mated message] The system which ge nerated this result transmit gaye reference range : <=65. The reference range was not used to interpr et this result as satish l/abnormal. [facility]2015-01-23 07:51:00 Test Item Value Reference Range Interpretation Comments AST (test code = AST) 12 See_Comment [Auto mated message] The system which ge nerated this result transmit gaye reference range : <=37. The reference range was not used to interpr et this result as satish l/abnormal. [facility]2015-01-23 07:51:00 Test Item Value Reference Range Interpretation Comments eGFR (test code = eGFR) 93 [facility]2015-01-23 07:51:00 Test Item Value Reference Range Interpretation Comments Bili Total (test code = Bili Total) 0.3 0.2-1.3 [facility]2015-01-23 07:51:00 Test Item Value Reference Range Interpretation Comments Chloride Lvl (test code = Chloride Lvl) 108 95-109 [facility]2015-01-23 07:51:00 Test Item Value Reference Range Interpretation Comments Sodium Lvl (test code = Sodium Lvl) 138 135-145 [facility]2015-01-23 07:51:00 Test Item Value Reference Range Interpretation Comments Potassium Lvl (test code = Potassium 3.9 3.5-5.1 Lvl) [facility]2015-01-23 07:51:00 Test Item Value Reference Range Interpretation Comments CO2 (test code = CO2) 22 24-32 [facility]2015-01-23 07:51:00 Test Item Value Reference Range Interpretation Comments Calcium Lvl (test code = Calcium Lvl) 8.8 8.5-10.5 [facility]2015-01-23 07:51:00 Test Item Value Reference Range Interpretation Comments Glucose Lvl (test code = Glucose Lvl) 98 70-99 [facility]2015-01-23 07:51:00 Test Item Value Reference Range Interpretation Comments Total Protein (test code = Total 7.3 6.4-8.4 Protein) [facility]2015-01-23 07:51:00 Test Item Value Reference Range Interpretation Comments BUN (test code = BUN) 12 7-22 [facility]2015-01-23 07:51:00 Test Item Value Reference Range Interpretation Comments Creatinine Lvl (test code = Creatinine 0.8 0.5-1.4 Lvl) [facility]2015-01-23 07:51:00 Test Item Value Reference Range Interpretation Comments AGAP (test code = AGAP) 11.9 10.0-20.0 [facility]2015-01-23 07:51:00 Test Item Value Reference Range Interpretation Comments B/C Ratio (test code = B/C Ratio) 15 6-25 [facility]2015-01-23 07:51:00 Test Item Value Reference Range Interpretation Comments Globulin (test code = Globulin) 3.9 2.0-4.0 [facility]2015-01-23 07:51:00 Test Item Value Reference Range Interpretation Comments A/G Ratio (test code = A/G Ratio) 0.9 0.7-1.6 [facility] AreaTbpyyqzSKRBSLVRFDWEQ1274-20-23 07:51:00 Test Item Value Reference Range Interpretation Comments hCG Tot (test code = hCG Tot) no gt [facility] [id number] 07:51:00 Test Item Value Reference Range Interpretation Comments MCHC (test code = MCHC) 33.8 32.0-36.0 [facility] [id number] 07:51:00 Test Item Value Reference Range Interpretation Comments MCH (test code = MCH) 30.3 pg 27.0-31.0 [facility] [id number] 07:51:00 Test Item Value Reference Range Interpretation Comments RDW (test code = RDW) 13.0 11.5-14.5 [facility] WorthUvkfqmaLQJGXAEIDP7548-72-28 07:51:00 Test Item Value Reference Range Interpretation Comments MPV (test code = MPV) 8.4 7.4-10.4 [facility] [id number] 07:51:00 Test Item Value Reference Range Interpretation Comments Platelet (test code = Platelet) 356 133-450 [facility] WorthDdgotgbGZZAJIGBMB1946-41-13 07:51:00 Test Item Value Reference Range Interpretation Comments RBC (test code = RBC) 4.45 4.20-5.40 [facility] [id number] 07:51:00 Test Item Value Reference Range Interpretation Comments WBC (test code = WBC) 12.9 3.7-10.4 [facility] WorthUrywgdxBUMRMBKIAN2777-09-72 07:51:00 Test Item Value Reference Range Interpretation Comments Hgb (test code = Hgb) 13.5 12.0-16.0 [facility] WorthUspdnhcDVRNQFIQSM2256-50-13 07:51:00 Test Item Value Reference Range Interpretation Comments MCV (test code = MCV) 89.7 80.0-98.0 [facility] WorthSgqtxkpKZPODCPLCE9842-75-28 07:51:00 Test Item Value Reference Range Interpretation Comments Hct (test code = Hct) 39.9 36.0-48.0 [facility] WorthHcpumjaLPQTFSCGVJ2099-58-90 07:51:00 Test Item Value Reference Range Interpretation Comments Eosinophils # (test code 0.3 See_Comment [A utomated message] The = Eosinophils #) system whic h generated this result tra nsmitted reference range : <=0.5. The reference r ozzy was not used to int erpret this result as normal/abnormal . [facility] WorthOfdbhrhLCEAISWJAL6316-08-84 07:51:00 Test Item Value Reference Range Interpretation Comments Lymphocytes # (test code = Lymphocytes 3.6 1.0-5.5 #) [facility] [id number] 07:51:00 Test Item Value Reference Range Interpretation Comments Monocytes # (test code 0.7 See_Comment [Aut omated message] The = Monocytes #) system which generated this result tra nsmitted reference range : <=0.8. The reference r ozzy was not used to int erpret this result as normal/abnormal . [facility] WorthSvbrdfvBMPPOJBUOW2497-93-56 07:51:00 Test Item Value Reference Range Interpretation Comments Segs (test code = Segs) 63.9 45.0-75.0 [facility] [id number] 07:51:00 Test Item Value Reference Range Interpretation Comments Segs-Bands # (test code = Segs-Bands #) 8.2 1.5-8.1 [facility] WorthDkahqwvINDQISCEPE5143-26-00 07:51:00 Test Item Value Reference Range Interpretation Comments Basophils (test code = 0.7 See_Comment [Aut omated message] The Basophils) system which ge nerated this result tra nsmitted reference range : <=1.0. The reference r ozzy was not used to int erpret this result as normal/abnormal . [facility] WorthDuxoxepGTPYBPPKCR8969-04-49 07:51:00 Test Item Value Reference Range Interpretation Comments Monocytes (test code = Monocytes) 5.4 2.0-12.0 [id number] 07:51:00 Test Item Value Reference Range Interpretation Comments Eosinophils (test code = 2.3 See_Comment [A utomated message] The Eosinophils) system which ge nerated this result tra nsmitted reference range : <=4.0. The reference r ozzy was not used to int erpret this result as normal/abnormal . [facility] WorthBjbcdtzGCIQGOXPNY2082-95-55 07:51:00 Test Item Value Reference Range Interpretation Comments Lymphocytes (test code = Lymphocytes) 27.7 20.0-40.0 [facility] WorthTswugttAGPNPYSREP0960-25-20 07:51:00 Test Item Value Reference Range Interpretation Comments Basophils # (test code 0.1 See_Comment [Aut omated message] The = Basophils #) system which generated this result tra nsmitted reference range : <=0.2. The reference r ozzy was not used to int erpret this result as normal/abnormal . [facility]2015-01-23 07:51:00 Test Item Value Reference Range Interpretation Comments UA Urobilinogen (test code = UA 1.0 0.1-1.0 Urobilinogen) [facility] AND [id number] 07:51:00 Test Item Value Reference Range Interpretation Comments UA Turbidity (test code Cloudy *ABN*(09/04/14 = UA Turbidity) 1:51 AM) [facility] AND [id number] 07:51:00 Test Item Value Reference Range Interpretation Comments UA Color (test code = Red *ABN*(09/04/14 1:51 UA Color) AM) [facility] AND [id number] 07:51:00 Test Item Value Reference Range Interpretation Comments UA Ketones (test code Negative *NA*(09/04/14 = UA Ketones) 1:51 AM) [facility] AND [id number] 07:51:00 Test Item Value Reference Range Interpretation Comments UA Glucose (test code Negative (09/04/14 1:51 = UA Glucose) AM) [facility] AND [id number] 07:51:00 Test Item Value Reference Range Interpretation Comments UA Protein (test code = Trace *ABN*(09/04/14 UA Protein) 1:51 AM) [facility] AND [id number] 07:51:00 Test Item Value Reference Range Interpretation Comments UA pH (test code = UA pH) 8.0 1 5.0-8.0 [facility] AND [id number] 07:51:00 Test Item Value Reference Range Interpretation Comments UA Spec Grav (test code = UA Spec 1.015 1 Grav) [facility] AND [id number] 07:51:00 Test Item Value Reference Range Interpretation Comments UA Bili (test code = Negative *NA*(09/04/14 UA Bili) 1:51 AM) [facility] AND [id number] 07:51:00 Test Item Value Reference Range Interpretation Comments UA Blood (test code = Large *ABN*(09/04/14 UA Blood) 1:51 AM) [facility] AND [id number] 07:51:00 Test Item Value Reference Range Interpretation Comments UA Leuk Est (test Negative (09/04/14 1:51 code = UA Leuk Est) AM) [facility] AND [id number] 07:51:00 Test Item Value Reference Range Interpretation Comments UA Nitrite (test code Negative (09/04/14 1:51 = UA Nitrite) AM) [facility] AND [id number] 07:51:00 Test Item Value Reference Range Interpretation Comments UA Amorph Joselin (test code = UA Few /HPF Amorph Joselin) [facility] AND [id number] 07:51:00 Test Item Value Reference Range Interpretation Comments UA RBC (test code 51-100 /HPF See_Comment [Automate d message] The = UA RBC) system which ge nerated this result tra nsmitted reference range : <=2. The reference r ozzy was not used to int erpret this result as normal/abnormal . [facility] AND [id number] 07:51:00 Test Item Value Reference Range Interpretation Comments UA WBC (test code = UA WBC) 6-10 /HPF [facility] AND [id number] 07:51:00 Test Item Value Reference Range Interpretation Comments UA Bacteria (test code = UA Few /HPF Bacteria) [facility] AND [id number] 07:51:00 Test Item Value Reference Range Interpretation Comments UA Sq Epi (test code = UA Sq Occasional /LPF Epi) [facility]2015-01-12 19:24:00 Test Item Value Reference Range Interpretation Comments Lipase Lvl (test code = Lipase Lvl) 104 73-393 [facility]2015-01-12 19:24:00 Test Item Value Reference Range Interpretation Comments eGFR (test code = eGFR) 109 [facility]2015-01-12 19:24:00 Test Item Value Reference Range Interpretation Comments Bili Total (test code = Bili Total) 0.6 0.2-1.3 [facility]2015-01-12 19:24:00 Test Item Value Reference Range Interpretation Comments Alk Phos (test code = Alk Phos) 72 39-136 [facility]2015-01-12 19:24:00 Test Item Value Reference Range Interpretation Comments Calcium Lvl (test code = Calcium Lvl) 8.8 8.5-10.5 [facility]2015-01-12 19:24:00 Test Item Value Reference Range Interpretation Comments CO2 (test code = CO2) 28 24-32 [facility]2015-01-12 19:24:00 Test Item Value Reference Range Interpretation Comments Chloride Lvl (test code = Chloride Lvl) 107 95-109 [facility]2015-01-12 19:24:00 Test Item Value Reference Range Interpretation Comments Potassium Lvl (test code = Potassium 3.9 3.5-5.1 Lvl) [facility]2015-01-12 19:24:00 Test Item Value Reference Range Interpretation Comments Glucose Lvl (test code = Glucose Lvl) 90 70-99 [facility]2015-01-12 19:24:00 Test Item Value Reference Range Interpretation Comments Sodium Lvl (test code = Sodium Lvl) 138 135-145 [place] 779425-01-12 19:24:00 Test Item Value Reference Range Interpretation Comments BUN (test code = BUN) 7 7-22 [facility]2015-01-12 19:24:00 Test Item Value Reference Range Interpretation Comments Creatinine Lvl (test code = Creatinine 0.7 0.5-1.4 Lvl) [facility]2015-01-12 19:24:00 Test Item Value Reference Range Interpretation Comments ALT (test code = ALT) 23 See_Comment [Auto mated message] The system which ge nerated this result transmit gaye reference range : <=65. The reference range was not used to interpr et this result as satish l/abnormal. [facility]2015-01-12 19:24:00 Test Item Value Reference Range Interpretation Comments AST (test code = AST) 12 See_Comment [Auto mated message] The system which ge nerated this result transmit gaye reference range : <=37. The reference range was not used to interpr et this result as satish l/abnormal. [facility]2015-01-12 19:24:00 Test Item Value Reference Range Interpretation Comments Albumin Lvl (test code = Albumin Lvl) 3.8 3.5-5.0 [facility]2015-01-12 19:24:00 Test Item Value Reference Range Interpretation Comments Total Protein (test code = Total 8.0 6.4-8.4 Protein) [facility]2015-01-12 19:24:00 Test Item Value Reference Range Interpretation Comments A/G Ratio (test code = A/G Ratio) 0.9 0.7-1.6 [place] 779425-01-12 19:24:00 Test Item Value Reference Range Interpretation Comments AGAP (test code = AGAP) 6.9 10.0-20.0 [facility]2015-01-12 19:24:00 Test Item Value Reference Range Interpretation Comments B/C Ratio (test code = B/C Ratio) 10 6-[id number] 19:24:00 Test Item Value Reference Range Interpretation Comments Globulin (test code = Globulin) 4.2 2.0-4.0 [facility]WER9426[facility]59-01 19:24:00 Test Item Value Reference Range Interpretation Comments S Preg (test code = S Negative *NA*(08/24/14 Preg) 1:24 PM) [facility] WorthWnqtlsnHLSEKTMXLR7065-14-59 19:24:00 Test Item Value Reference Range Interpretation Comments WBC (test code = WBC) 11.3 3.7-10.4 [facility] WorthXfbdpuaFXXQWFCCJU0378-78-77 19:24:00 Test Item Value Reference Range Interpretation Comments RBC (test code = RBC) 4.75 4.20-5.40 [facility] WorthCvclrcxEZLKZOURCL7034-22-57 19:24:00 Test Item Value Reference Range Interpretation Comments Platelet (test code = Platelet) 402 133-450 [facility] Wor[id number] 19:24:00 Test Item Value Reference Range Interpretation Comments MCV (test code = MCV) 89.9 80.0-98.0 [facility] WorthImxrogkUZGHMYGJSH3364-04-27 19:24:00 Test Item Value Reference Range Interpretation Comments Hct (test code = Hct) 42.7 36.0-48.0 [facility] Wor[id number] 19:24:00 Test Item Value Reference Range Interpretation Comments Hgb (test code = Hgb) 14.5 12.0-16.0 [facility] WorthWwhxsupYNLENEXCFG8461-17-92 19:24:00 Test Item Value Reference Range Interpretation Comments RDW (test code = RDW) 13.5 11.5-14.5 [facility] WorthEjkzialKFFQGDYQZG5538-36-44 19:24:00 Test Item Value Reference Range Interpretation Comments MCHC (test code = MCHC) 34.0 32.0-36.0 [facility] WorthLkclyexOLYZQUGMIL2992-20-03 19:24:00 Test Item Value Reference Range Interpretation Comments MCH (test code = MCH) 30.6 pg 27.0-31.0 [facility] WorthDjbxgcmLONBCYZTGK5907-45-90 19:24:00 Test Item Value Reference Range Interpretation Comments MPV (test code = MPV) 8.1 7.4-10.4 [facility] WorthLpzpenePBTADAHQZJ9792-13-12 19:24:00 Test Item Value Reference Range Interpretation Comments Stomatocyte (test code = Stomatocyte) Slight [facility] WorthHdtvyxuOFUKJZFQXC9489-82-01 19:24:00 Test Item Value Reference Range Interpretation Comments Basophils # (test code 0.1 See_Comment [Aut omated message] The = Basophils #) system which generated this result tra nsmitted reference range : <=0.2. The reference r ozzy was not used to int erpret this result as normal/abnormal . [facility] WorthSxfeagvCUDUDHVRSF3534-05-60 19:24:00 Test Item Value Reference Range Interpretation Comments Eosinophils # (test code 0.2 See_Comment [A utomated message] The = Eosinophils #) system whic h generated this result tra nsmitted reference range : <=0.5. The reference r ozzy was not used to int erpret this result as normal/abnormal . [facility] WorthIroflbxAQNSWTZXZV6972-28-94 19:24:00 Test Item Value Reference Range Interpretation Comments Hypochrom (test code = 1+ (08/24/14 1:24 PM) Hypochrom) [facility] WorthOoiycgxJDUWTSHHKR6623-62-98 19:24:00 Test Item Value Reference Range Interpretation Comments Lymphocytes # (test code = Lymphocytes 2.8 1.0-5.5 #) [facility] Wor[id number] 19:24:00 Test Item Value Reference Range Interpretation Comments Segs-Bands # (test code = Segs-Bands #) 8.1 1.5-8.1 [facility] WorthBqvlxdiPSADJMBPRV5394-14-59 19:24:00 Test Item Value Reference Range Interpretation Comments Monocytes # (test code 0.2 See_Comment [Aut omated message] The = Monocytes #) system which generated this result tra nsmitted reference range : <=0.8. The reference r ozzy was not used to int erpret this result as normal/abnormal . [facility] WorthFygddyvXELKNPDYYH0611-40-99 19:24:00 Test Item Value Reference Range Interpretation Comments Lymphocytes (test code = Lymphocytes) 24.5 20.0-40.0 [facility] WorthIsqtkqcZYNXORHZGW4568-11-75 19:24:00 Test Item Value Reference Range Interpretation Comments Segs (test code = Segs) 71.8 45.0-75.0 [facility] WorthWygfcjxFYUQNVHUIU9953-25-22 19:24:00 Test Item Value Reference Range Interpretation Comments Basophils (test code = 0.6 See_Comment [Aut omated message] The Basophils) system which ge nerated this result tra nsmitted reference range : <=1.0. The reference r ozzy was not used to int erpret this result as normal/abnormal . [facility] WorthShocrjsKOMCIRBQTS8488-40-86 19:24:00 Test Item Value Reference Range Interpretation Comments Monocytes (test code = Monocytes) 1.5 2.0-12.0 [facility] Wor[id number] 19:24:00 Test Item Value Reference Range Interpretation Comments Eosinophils (test code = 1.6 See_Comment [A utomated message] The Eosinophils) system which ge nerated this result tra nsmitted reference range : <=4.0. The reference r ozzy was not used to int erpret this result as normal/abnormal . [facility] Wor[id number] 19:24:00 Test Item Value Reference Range Interpretation Comments Plt Morph (test code = Normal (08/24/14 1:24 Plt Morph) PM) [facility] AND [id number] 19:24:00 Test Item Value Reference Range Interpretation Comments UA Sq Epi (test code = UA Sq Occasional /LPF Epi) [facility] AND [id number] 19:24:00 Test Item Value Reference Range Interpretation Comments UA Bacteria (test code = UA Occasional /HPF Bacteria) [facility] AND [id number] 19:24:00 Test Item Value Reference Range Interpretation Comments UA Mucus (test code = None Seen (08/24/14 UA Mucus) 1:24 PM) [facility] AND [id number] 19:24:00 Test Item Value Reference Range Interpretation Comments UA WBC (test code = UA WBC) 0-2 /HPF [facility] AND [id number] 19:24:00 Test Item Value Reference Range Interpretation Comments UA RBC (test code = 0-2 /HPF See_Comment [Automa gaye message] The UA RBC) system which ge nerated this result tra nsmitted reference range : <=2. The reference range was not used to interpr et this result as satish l/abnormal. [facility] AND [id number] 19:24:00 Test Item Value Reference Range Interpretation Comments UA Leuk Est (test Moderate *ABN*(08/24/14 code = UA Leuk Est) 1:24 PM) [facility] AND [id number] 19:24:00 Test Item Value Reference Range Interpretation Comments UA Nitrite (test code Negative (08/24/14 1:24 = UA Nitrite) PM) [facility] AND [id number] 19:24:00 Test Item Value Reference Range Interpretation Comments UA Urobilinogen (test code = UA 0.2 0.1-1.0 Urobilinogen) [facility] AND [id number] 19:24:00 Test Item Value Reference Range Interpretation Comments UA Ketones (test code Negative *NA*(08/24/14 = UA Ketones) 1:24 PM) [facility] AND [id number] 19:24:00 Test Item Value Reference Range Interpretation Comments UA Blood (test code = Negative (08/24/14 1:24 UA Blood) PM) [facility] AND [id number] 19:24:00 Test Item Value Reference Range Interpretation Comments UA Bili (test code = Negative *NA*(08/24/14 UA Bili) 1:24 PM) [facility] AND [id number] 19:24:00 Test Item Value Reference Range Interpretation Comments UA Color (test code = Yellow *NA*(08/24/14 UA Color) 1:24 PM) [facility] AND [id number] 19:24:00 Test Item Value Reference Range Interpretation Comments UA Glucose (test code Negative (08/24/14 1:24 = UA Glucose) PM) [facility] AND [id number] 19:24:00 Test Item Value Reference Range Interpretation Comments UA Protein (test code Negative (08/24/14 1:24 = UA Protein) PM) [facility] AND [id number] 19:24:00 Test Item Value Reference Range Interpretation Comments UA pH (test code = UA pH) 6.0 1 5.0-8.0 [facility] AND [id number] 19:24:00 Test Item Value Reference Range Interpretation Comments UA Spec Grav (test code *NA*(08/24/14 1:24 PM) = UA Spec Grav) [facility] AND [id number] 19:24:00 Test Item Value Reference Range Interpretation Comments UA Turbidity (test code = Clear (08/24/14 1:24 UA Turbidity) PM) [facility]2015-01-12 19:24:00 Test Item Value Reference Range Interpretation Comments Lipase Lvl (test code = Lipase Lvl) 104 73-393 [facility]2015-01-12 19:24:00 Test Item Value Reference Range Interpretation Comments eGFR (test code = eGFR) 109 [facility]2015-01-12 19:24:00 Test Item Value Reference Range Interpretation Comments Bili Total (test code = Bili Total) 0.6 0.2-1.3 [facility]2015-01-12 19:24:00 Test Item Value Reference Range Interpretation Comments Alk Phos (test code = Alk Phos) 72 39-136 [facility]2015-01-12 19:24:00 Test Item Value Reference Range Interpretation Comments Calcium Lvl (test code = Calcium Lvl) 8.8 8.5-10.5 [facility]2015-01-12 19:24:00 Test Item Value Reference Range Interpretation Comments CO2 (test code = CO2) 28 24-32 [facility]2015-01-12 19:24:00 Test Item Value Reference Range Interpretation Comments Chloride Lvl (test code = Chloride Lvl) 107 95-109 [facility]2015-01-12 19:24:00 Test Item Value Reference Range Interpretation Comments Potassium Lvl (test code = Potassium 3.9 3.5-5.1 Lvl) [facility]2015-01-12 19:24:00 Test Item Value Reference Range Interpretation Comments Glucose Lvl (test code = Glucose Lvl) 90 70-99 [facility]2015-01-12 19:24:00 Test Item Value Reference Range Interpretation Comments Sodium Lvl (test code = Sodium Lvl) 138 135-145 [facility]2015-01-12 19:24:00 Test Item Value Reference Range Interpretation Comments BUN (test code = BUN) 7 7-22 [facility]2015-01-12 19:24:00 Test Item Value Reference Range Interpretation Comments Creatinine Lvl (test code = Creatinine 0.7 0.5-1.4 Lvl) [facility]2015-01-12 19:24:00 Test Item Value Reference Range Interpretation Comments ALT (test code = ALT) 23 See_Comment [Auto mated message] The system which ge nerated this result transmit gaye reference range : <=65. The reference range was not used to interpr et this result as satish l/abnormal. [facility]2015-01-12 19:24:00 Test Item Value Reference Range Interpretation Comments AST (test code = AST) 12 See_Comment [Auto mated message] The system which ge nerated this result transmit gaye reference range : <=37. The reference range was not used to interpr et this result as satish l/abnormal. [facility]2015-01-12 19:24:00 Test Item Value Reference Range Interpretation Comments Albumin Lvl (test code = Albumin Lvl) 3.8 3.5-5.0 [facility]2015-01-12 19:24:00 Test Item Value Reference Range Interpretation Comments Total Protein (test code = Total 8.0 6.4-8.4 Protein) [facility]2015-01-12 19:24:00 Test Item Value Reference Range Interpretation Comments A/G Ratio (test code = A/G Ratio) 0.9 0.7-1.6 [facility]2015-01-12 19:24:00 Test Item Value Reference Range Interpretation Comments AGAP (test code = AGAP) 6.9 10.0-20.0 [facility]2015-01-12 19:24:00 Test Item Value Reference Range Interpretation Comments B/C Ratio (test code = B/C Ratio) 10 6-25 [facility]2015-01-12 19:24:00 Test Item Value Reference Range Interpretation Comments Globulin (test code = Globulin) 4.2 2.0-4.0 [id number] 19:24:00 Test Item Value Reference Range Interpretation Comments S Preg (test code = S Negative *NA*(08/24/14 Preg) 1:24 PM) [facility] 19:24:00 Test Item Value Reference Range Interpretation Comments WBC (test code = WBC) 11.3 3.7-10.4 [facility] WorthNezgybgZMNBNCEONV7836-64-68 19:24:00 Test Item Value Reference Range Interpretation Comments RBC (test code = RBC) 4.75 4.20-5.40 [facility] WorthJmvuqjnPLCYTZPQYV0369-13-39 19:24:00 Test Item Value Reference Range Interpretation Comments Platelet (test code = Platelet) 402 133-450 [facility] WorthStsurpjPUNUMHNYNE0973-14-49 19:24:00 Test Item Value Reference Range Interpretation Comments MCV (test code = MCV) 89.9 80.0-98.0 [facility] WorthRdnjauxDCVKBRXQOI5808-04-54 19:24:00 Test Item Value Reference Range Interpretation Comments Hct (test code = Hct) 42.7 36.0-48.0 [facility] WorthLqmubxiFARWEJIDBT5735-07-41 19:24:00 Test Item Value Reference Range Interpretation Comments Hgb (test code = Hgb) 14.5 12.0-16.0 [facility] WorthVnhxczuRXNMHIPCAE7093-34-98 19:24:00 Test Item Value Reference Range Interpretation Comments RDW (test code = RDW) 13.5 11.5-14.5 [facility] WorthSqwkdyuTRKHTAKRMV1349-52-79 19:24:00 Test Item Value Reference Range Interpretation Comments MCHC (test code = MCHC) 34.0 32.0-36.0 [facility] WorthQbahvlwFTGANSRTPH5002-98-10 19:24:00 Test Item Value Reference Range Interpretation Comments MCH (test code = MCH) 30.6 pg 27.0-31.0 [facility] WorthLzzaxelLKVEGOUJLD6122-71-01 19:24:00 Test Item Value Reference Range Interpretation Comments MPV (test code = MPV) 8.1 7.4-10.4 [facility] WorthXvchmhlLMJLUBSXRJ3816-14-94 19:24:00 Test Item Value Reference Range Interpretation Comments Stomatocyte (test code = Stomatocyte) Slight [facility] WorthUdqgcwzLFPWJBHUIV5076-94-00 19:24:00 Test Item Value Reference Range Interpretation Comments Basophils # (test code 0.1 See_Comment [Aut omated message] The = Basophils #) system which generated this result tra nsmitted reference range : <=0.2. The reference r ozzy was not used to int erpret this result as normal/abnormal . [facility] WorthQrjjvndOKDVWJPGUT5660-43-91 19:24:00 Test Item Value Reference Range Interpretation Comments Eosinophils # (test code 0.2 See_Comment [A utomated message] The = Eosinophils #) system whic h generated this result tra nsmitted reference range : <=0.5. The reference r ozzy was not used to int erpret this result as normal/abnormal . [facility] WorthYexizeoVSDKEXJATV4047-92-25 19:24:00 Test Item Value Reference Range Interpretation Comments Hypochrom (test code = 1+ (08/24/14 1:24 PM) Hypochrom) [facility] WorthGyombckWQQHNZTNJS7849-94-28 19:24:00 Test Item Value Reference Range Interpretation Comments Lymphocytes # (test code = Lymphocytes 2.8 1.0-5.5 #) [facility] WorthHkppwypLLWFLVZQEP6011-29-36 19:24:00 Test Item Value Reference Range Interpretation Comments Segs-Bands # (test code = Segs-Bands #) 8.1 1.5-8.1 [facility] WorthSnvzsmsLYNXGSYAGO6561-42-50 19:24:00 Test Item Value Reference Range Interpretation Comments Monocytes # (test code 0.2 See_Comment [Aut omated message] The = Monocytes #) system which generated this result tra nsmitted reference range : <=0.8. The reference r ozzy was not used to int erpret this result as normal/abnormal . [facility] WorthZaomaeqXKJDBRQWPK8968-35-50 19:24:00 Test Item Value Reference Range Interpretation Comments Lymphocytes (test code = Lymphocytes) 24.5 20.0-40.0 [facility] WorthDsvrstzAYRRWCNLXA1331-21-51 19:24:00 Test Item Value Reference Range Interpretation Comments Segs (test code = Segs) 71.8 45.0-75.0 [facility] WorthXescbdqVSERKLASDF1757-76-72 19:24:00 Test Item Value Reference Range Interpretation Comments Basophils (test code = 0.6 See_Comment [Aut omated message] The Basophils) system which ge nerated this result tra nsmitted reference range : <=1.0. The reference r ozzy was not used to int erpret this result as normal/abnormal . [facility] WorthYtegcgyAVJTICJFTG7981-35-93 19:24:00 Test Item Value Reference Range Interpretation Comments Monocytes (test code = Monocytes) 1.5 2.0-12.0 [facility] WorthQylgrjhTABMRIBPHL7319-99-76 19:24:00 Test Item Value Reference Range Interpretation Comments Eosinophils (test code = 1.6 See_Comment [A utomated message] The Eosinophils) system which ge nerated this result tra nsmitted reference range : <=4.0. The reference r ozzy was not used to int erpret this result as normal/abnormal . [facility] WorthCifsmtmTWDDWJBTEX3768-92-29 19:24:00 Test Item Value Reference Range Interpretation Comments Plt Morph (test code = Normal (08/24/14 1:24 Plt Morph) PM) [facility] AND [id number] 19:24:00 Test Item Value Reference Range Interpretation Comments UA Sq Epi (test code = UA Sq Occasional /LPF Epi) [facility] AND [id number] 19:24:00 Test Item Value Reference Range Interpretation Comments UA Bacteria (test code = UA Occasional /HPF Bacteria) [facility] AND [id number] 19:24:00 Test Item Value Reference Range Interpretation Comments UA Mucus (test code = None Seen (08/24/14 UA Mucus) 1:24 PM) [facility] AND [id number] 19:24:00 Test Item Value Reference Range Interpretation Comments UA WBC (test code = UA WBC) 0-2 /HPF [facility] AND [id number] 19:24:00 Test Item Value Reference Range Interpretation Comments UA RBC (test code = 0-2 /HPF See_Comment [Automa gaye message] The UA RBC) system which ge nerated this result tra nsmitted reference range : <=2. The reference range was not used to interpr et this result as satish l/abnormal. [facility] AND [id number] 19:24:00 Test Item Value Reference Range Interpretation Comments UA Leuk Est (test Moderate *ABN*(08/24/14 code = UA Leuk Est) 1:24 PM) [facility] AND [id number] 19:24:00 Test Item Value Reference Range Interpretation Comments UA Nitrite (test code Negative (08/24/14 1:24 = UA Nitrite) PM) [facility] AND [id number] 19:24:00 Test Item Value Reference Range Interpretation Comments UA Urobilinogen (test code = UA 0.2 0.1-1.0 Urobilinogen) [facility] AND [id number] 19:24:00 Test Item Value Reference Range Interpretation Comments UA Ketones (test code Negative *NA*(08/24/14 = UA Ketones) 1:24 PM) [facility] AND [id number] 19:24:00 Test Item Value Reference Range Interpretation Comments UA Blood (test code = Negative (08/24/14 1:24 UA Blood) PM) [facility] AND [id number] 19:24:00 Test Item Value Reference Range Interpretation Comments UA Bili (test code = Negative *NA*(08/24/14 UA Bili) 1:24 PM) [facility] AND [id number] 19:24:00 Test Item Value Reference Range Interpretation Comments UA Color (test code = Yellow *NA*(08/24/14 UA Color) 1:24 PM) [facility] AND [id number] 19:24:00 Test Item Value Reference Range Interpretation Comments UA Glucose (test code Negative (08/24/14 1:24 = UA Glucose) PM) [facility] AND [id number] 19:24:00 Test Item Value Reference Range Interpretation Comments UA Protein (test code Negative (08/24/14 1:24 = UA Protein) PM) [facility] AND [id number] 19:24:00 Test Item Value Reference Range Interpretation Comments UA pH (test code = UA pH) 6.0 1 5.0-8.0 [facility] AND [id number] 19:24:00 Test Item Value Reference Range Interpretation Comments UA Spec Grav (test code *NA*(08/24/14 1:24 PM) = UA Spec Grav) [facility] AND [id number] 19:24:00 Test Item Value Reference Range Interpretation Comments UA Turbidity (test code = Clear (08/24/14 1:24 [facility] Turbidity) PM[id number]:24:[facility] Test Item Value Reference Range Interpretation Comments Lipase Lvl (test code = Lipase Lvl) 104 73-393 [facility] [id number] 19:24:00 Test Item Value Reference Range Interpretation Comments eGFR (test code = eGFR) 109 [facility]2015-01-12 19:24:00 Test Item Value Reference Range Interpretation Comments Bili Total (test code = Bili Total) 0.6 0.2-1.3 [facility]2015-01-12 19:24:00 Test Item Value Reference Range Interpretation Comments Alk Phos (test code = Alk Phos) 72 39-136 [facility]2015-01-12 19:24:00 Test Item Value Reference Range Interpretation Comments Calcium Lvl (test code = Calcium Lvl) 8.8 8.5-10.5 [facility]2015-01-12 19:24:00 Test Item Value Reference Range Interpretation Comments CO2 (test code = CO2) 28 24-32 [facility]2015-01-12 19:24:00 Test Item Value Reference Range Interpretation Comments Chloride Lvl (test code = Chloride Lvl) 107 95-109 [facility]2015-01-12 19:24:00 Test Item Value Reference Range Interpretation Comments Potassium Lvl (test code = Potassium 3.9 3.5-5.1 Lvl) [facility]2015-01-12 19:24:00 Test Item Value Reference Range Interpretation Comments Glucose Lvl (test code = Glucose Lvl) 90 70-99 [facility]2015-01-12 19:24:00 Test Item Value Reference Range Interpretation Comments Sodium Lvl (test code = Sodium Lvl) 138 135-145 [facility]2015-01-12 19:24:00 Test Item Value Reference Range Interpretation Comments BUN (test code = BUN) 7 7-22 [facility]2015-01-12 19:24:00 Test Item Value Reference Range Interpretation Comments Creatinine Lvl (test code = Creatinine 0.7 0.5-1.4 Lvl) [facility]2015-01-12 19:24:00 Test Item Value Reference Range Interpretation Comments ALT (test code = ALT) 23 See_Comment [Auto mated message] The system which ge nerated this result transmit gaye reference range : <=65. The reference range was not used to interpr et this result as satish l/abnormal. [facility]2015-01-12 19:24:00 Test Item Value Reference Range Interpretation Comments AST (test code = AST) 12 See_Comment [Auto mated message] The system which ge nerated this result transmit gaye reference range : <=37. The reference range was not used to interpr et this result as satish l/abnormal. [facility]2015-01-12 19:24:00 Test Item Value Reference Range Interpretation Comments Albumin Lvl (test code = Albumin Lvl) 3.8 3.5-5.0 [facility]2015-01-12 19:24:00 Test Item Value Reference Range Interpretation Comments Total Protein (test code = Total 8.0 6.4-8.4 Protein) [facility]2015-01-12 19:24:00 Test Item Value Reference Range Interpretation Comments A/G Ratio (test code = A/G Ratio) 0.9 0.7-1.6 [place] [id number] 19:24:00 Test Item Value Reference Range Interpretation Comments AGAP (test code = AGAP) 6.9 10.0-20.0 [facility]2015-01-12 19:24:00 Test Item Value Reference Range Interpretation Comments B/C Ratio (test code = B/C Ratio) 10 6-25 [facility]2015-01-12 19:24:00 Test Item Value Reference Range Interpretation Comments Globulin (test code = Globulin) 4.2 2.0-4.0 [id number] 19:24:00 Test Item Value Reference Range Interpretation Comments S Preg (test code = S Negative *NA*(08/24/14 Preg) 1:24 PM) [facility] [id number] 19:24:00 Test Item Value Reference Range Interpretation Comments WBC (test code = WBC) 11.3 3.7-10.4 [facility] WorthRekzcpiHSKKJQMPEZ2630-25-60 19:24:00 Test Item Value Reference Range Interpretation Comments RBC (test code = RBC) 4.75 4.20-5.40 [facility] WorthAwnzyscFZLKZSWSMP7420-17-93 19:24:00 Test Item Value Reference Range Interpretation Comments Platelet (test code = Platelet) 402 133-450 [facility] WorthZnjitdiDIHTLWELKY7574-49-91 19:24:00 Test Item Value Reference Range Interpretation Comments MCV (test code = MCV) 89.9 80.0-98.0 [facility] WorthPyxdsyjZTYUENFQWS4575-17-95 19:24:00 Test Item Value Reference Range Interpretation Comments Hct (test code = Hct) 42.7 36.0-48.0 [facility] WorthQllwsywXXGMVDQINF8321-71-22 19:24:00 Test Item Value Reference Range Interpretation Comments Hgb (test code = Hgb) 14.5 12.0-16.0 [facility] WorthTdswgdtIPEQSCKGAQ6971-35-98 19:24:00 Test Item Value Reference Range Interpretation Comments RDW (test code = RDW) 13.5 11.5-14.5 [facility] WorthNvnpydtNCCMCJXPVA2302-26-73 19:24:00 Test Item Value Reference Range Interpretation Comments MCHC (test code = MCHC) 34.0 32.0-36.0 [facility] [id number] 19:24:00 Test Item Value Reference Range Interpretation Comments MCH (test code = MCH) 30.6 pg 27.0-31.0 [facility] WorthBnredwcSRRGMWHJIS2626-12-43 19:24:00 Test Item Value Reference Range Interpretation Comments MPV (test code = MPV) 8.1 7.4-10.4 [facility] WorthHonadsxIIIIDLMCYM8848-03-66 19:24:00 Test Item Value Reference Range Interpretation Comments Stomatocyte (test code = Stomatocyte) Slight [facility] WorthLrwaowwFSNUKHPVTC8679-18-20 19:24:00 Test Item Value Reference Range Interpretation Comments Basophils # (test code 0.1 See_Comment [Aut omated message] The = Basophils #) system which generated this result tra nsmitted reference range : <=0.2. The reference r ozzy was not used to int erpret this result as normal/abnormal . [facility] WorthBrxascgYFMVYETYAR8848-02-37 19:24:00 Test Item Value Reference Range Interpretation Comments Eosinophils # (test code 0.2 See_Comment [A utomated message] The = Eosinophils #) system whic h generated this result tra nsmitted reference range : <=0.5. The reference r ozzy was not used to int erpret this result as normal/abnormal . [facility] Wor[id number] 19:24:00 Test Item Value Reference Range Interpretation Comments Hypochrom (test code = 1+ (08/24/14 1:24 PM) Hypochrom) [facility] Wor[id number] 19:24:00 Test Item Value Reference Range Interpretation Comments Lymphocytes # (test code = Lymphocytes 2.8 1.0-5.5 #) [facility] Wor[id number] 19:24:00 Test Item Value Reference Range Interpretation Comments Segs-Bands # (test code = Segs-Bands #) 8.1 1.5-8.1 [facility] [id number] 19:24:00 Test Item Value Reference Range Interpretation Comments Monocytes # (test code 0.2 See_Comment [Aut omated message] The = Monocytes #) system which generated this result tra nsmitted reference range : <=0.8. The reference r ozzy was not used to int erpret this result as normal/abnormal . [facility] WorthYweqclqVSTXCJAHQM4894-34-07 19:24:00 Test Item Value Reference Range Interpretation Comments Lymphocytes (test code = Lymphocytes) 24.5 20.0-40.0 [facility] WorthXokdupgNRWYTJNIXH6030-03-22 19:24:00 Test Item Value Reference Range Interpretation Comments Segs (test code = Segs) 71.8 45.0-75.0 [facility] WorthLbdrfvyHAZMBFAEPJ5991-49-52 19:24:00 Test Item Value Reference Range Interpretation Comments Basophils (test code = 0.6 See_Comment [Aut omated message] The Basophils) system which ge nerated this result tra nsmitted reference range : <=1.0. The reference r ozzy was not used to int erpret this result as normal/abnormal . [facility] WorthPyibryvXBKTXELMDO2980-84-79 19:24:00 Test Item Value Reference Range Interpretation Comments Monocytes (test code = Monocytes) 1.5 2.0-12.0 [facility] WorthMdevjbzWVYEALILAB4489-00-57 19:24:00 Test Item Value Reference Range Interpretation Comments Eosinophils (test code = 1.6 See_Comment [A utomated message] The Eosinophils) system which ge nerated this result tra nsmitted reference range : <=4.0. The reference r ozzy was not used to int erpret this result as normal/abnormal . [facility] Wor[id number] 19:24:00 Test Item Value Reference Range Interpretation Comments Plt Morph (test code = Normal (08/24/14 1:24 Plt Morph) PM) [facility] [id number] 19:24:00 Test Item Value Reference Range Interpretation Comments UA Sq Epi (test code = UA Sq Occasional /LPF Epi) [facility] [id number] 19:24:00 Test Item Value Reference Range Interpretation Comments UA Bacteria (test code = UA Occasional /HPF Bacteria) [facility] [id number] 19:24:00 Test Item Value Reference Range Interpretation Comments UA Mucus (test code = None Seen (08/24/14 UA Mucus) 1:24 PM) [facility] AND [id number] 19:24:00 Test Item Value Reference Range Interpretation Comments UA WBC (test code = UA WBC) 0-2 /HPF [facility] AND [id number] 19:24:00 Test Item Value Reference Range Interpretation Comments UA RBC (test code = 0-2 /HPF See_Comment [Automa gaye message] The UA RBC) system which ge nerated this result tra nsmitted reference range : <=2. The reference range was not used to interpr et this result as satish l/abnormal. [facility] AND [id number] 19:24:00 Test Item Value Reference Range Interpretation Comments UA Leuk Est (test Moderate *ABN*(08/24/14 code = UA Leuk Est) 1:24 PM) [facility] AND [id number] 19:24:00 Test Item Value Reference Range Interpretation Comments UA Nitrite (test code Negative (08/24/14 1:24 = UA Nitrite) PM) [facility] AND [id number] 19:24:00 Test Item Value Reference Range Interpretation Comments UA Urobilinogen (test code = UA 0.2 0.1-1.0 Urobilinogen) [facility] AND [id number] 19:24:00 Test Item Value Reference Range Interpretation Comments UA Ketones (test code Negative *NA*(08/24/14 = UA Ketones) 1:24 PM) [facility] [id number] 19:24:00 Test Item Value Reference Range Interpretation Comments UA Blood (test code = Negative (08/24/14 1:24 UA Blood) PM) [facility] AND [id number] 19:24:00 Test Item Value Reference Range Interpretation Comments UA Bili (test code = Negative *NA*(08/24/14 UA Bili) 1:24 PM) [facility] AND [id number] 19:24:00 Test Item Value Reference Range Interpretation Comments UA Color (test code = Yellow *NA*(08/24/14 UA Color) 1:24 PM) [facility] AND [id number] 19:24:00 Test Item Value Reference Range Interpretation Comments UA Glucose (test code Negative (08/24/14 1:24 = UA Glucose) PM) [facility] AND [id number] 19:24:00 Test Item Value Reference Range Interpretation Comments UA Protein (test code Negative (08/24/14 1:24 = UA Protein) PM) [facility] AND [id number] 19:24:00 Test Item Value Reference Range Interpretation Comments UA pH (test code = UA pH) 6.0 1 5.0-8.0 [facility] AND [id number] 19:24:00 Test Item Value Reference Range Interpretation Comments UA Spec Grav (test code *NA*(08/24/14 1:24 PM) = UA Spec Grav) [facility] AND [id number] 19:24:00 Test Item Value Reference Range Interpretation Comments UA Turbidity (test code = Clear (08/24/14 1:24 UA Turbidity) PM) [facility] [id number] 19:24:00 Test Item Value Reference Range Interpretation Comments Lipase Lvl (test code = Lipase Lvl) 104 73-393 [facility]annCHE[facility] [id number] 19:24:00 Test Item Value Reference Range Interpretation Comments eGFR (test code = eGFR) 109 [facility]2015-01-12 19:24:00 Test Item Value Reference Range Interpretation Comments Bili Total (test code = Bili Total) 0.6 0.2-1.3 [facility]2015-01-12 19:24:00 Test Item Value Reference Range Interpretation Comments Alk Phos (test code = Alk Phos) 72 39-136 [facility]2015-01-12 19:24:00 Test Item Value Reference Range Interpretation Comments Calcium Lvl (test code = Calcium Lvl) 8.8 8.5-10.5 [facility]2015-01-12 19:24:00 Test Item Value Reference Range Interpretation Comments CO2 (test code = CO2) 28 24-32 [facility]2015-01-12 19:24:00 Test Item Value Reference Range Interpretation Comments Chloride Lvl (test code = Chloride Lvl) 107 95-109 [facility]2015-01-12 19:24:00 Test Item Value Reference Range Interpretation Comments Potassium Lvl (test code = Potassium 3.9 3.5-5.1 Lvl) [facility]2015-01-12 19:24:00 Test Item Value Reference Range Interpretation Comments Glucose Lvl (test code = Glucose Lvl) 90 70-99 [facility]2015-01-12 19:24:00 Test Item Value Reference Range Interpretation Comments Sodium Lvl (test code = Sodium Lvl) 138 135-145 [facility]2015-01-12 19:24:00 Test Item Value Reference Range Interpretation Comments BUN (test code = BUN) 7 7-22 [facility]2015-01-12 19:24:00 Test Item Value Reference Range Interpretation Comments Creatinine Lvl (test code = Creatinine 0.7 0.5-1.4 Lvl) [facility]2015-01-12 19:24:00 Test Item Value Reference Range Interpretation Comments ALT (test code = ALT) 23 See_Comment [Auto mated message] The system which ge nerated this result transmit gaye reference range : <=65. The reference range was not used to interpr et this result as satish l/abnormal. [facility]2015-01-12 19:24:00 Test Item Value Reference Range Interpretation Comments AST (test code = AST) 12 See_Comment [Auto mated message] The system which ge nerated this result transmit gaye reference range : <=37. The reference range was not used to interpr et this result as satish l/abnormal. [facility]2015-01-12 19:24:00 Test Item Value Reference Range Interpretation Comments Albumin Lvl (test code = Albumin Lvl) 3.8 3.5-5.0 [facility]2015-01-12 19:24:00 Test Item Value Reference Range Interpretation Comments Total Protein (test code = Total 8.0 6.4-8.4 Protein) [facility]2015-01-12 19:24:00 Test Item Value Reference Range Interpretation Comments A/G Ratio (test code = A/G Ratio) 0.9 0.7-1.6 [facility]2015-01-12 19:24:00 Test Item Value Reference Range Interpretation Comments AGAP (test code = AGAP) 6.9 10.0-20.0 [facility]2015-01-12 19:24:00 Test Item Value Reference Range Interpretation Comments B/C Ratio (test code = B/C Ratio) 10 6-25 [facility]2015-01-12 19:24:00 Test Item Value Reference Range Interpretation Comments Globulin (test code = Globulin) 4.2 2.0-4.0 [facility] Ar[id number] 19:24:00 Test Item Value Reference Range Interpretation Comments S Preg (test code = S Negative *NA*(08/24/14 Preg) 1:24 PM) [facility] WorthSvnxptsPRVEDCNAHO9849-06-86 19:24:00 Test Item Value Reference Range Interpretation Comments WBC (test code = WBC) 11.3 3.7-10.4 [facility] WorthUafnoqwRVODKRVWWH3918-14-24 19:24:00 Test Item Value Reference Range Interpretation Comments RBC (test code = RBC) 4.75 4.20-5.40 [facility] [id number] 19:24:00 Test Item Value Reference Range Interpretation Comments Platelet (test code = Platelet) 402 133-450 [facility] WorthBaeulqbWNIJURXDAV3901-25-08 19:24:00 Test Item Value Reference Range Interpretation Comments MCV (test code = MCV) 89.9 80.0-98.0 [facility] WorthMhgfrpzOUOGELPCPK3168-08-67 19:24:00 Test Item Value Reference Range Interpretation Comments Hct (test code = Hct) 42.7 36.0-48.0 [facility] WorthDlbuvwjXESASHNMFL3067-77-52 19:24:00 Test Item Value Reference Range Interpretation Comments Hgb (test code = Hgb) 14.5 12.0-16.0 [facility] WorthLyxfbjcQTIVJENVTA4897-18-54 19:24:00 Test Item Value Reference Range Interpretation Comments RDW (test code = RDW) 13.5 11.5-14.5 [facility] WorthVrghhjfWPPXWUBFAW4591-85-74 19:24:00 Test Item Value Reference Range Interpretation Comments MCHC (test code = MCHC) 34.0 32.0-36.0 [facility] WorthRqgqtvvASFTPVETCB0584-85-04 19:24:00 Test Item Value Reference Range Interpretation Comments MCH (test code = MCH) 30.6 pg 27.0-31.0 [facility] WorthUxeqirdSBIPUAPYFA0168-65-25 19:24:00 Test Item Value Reference Range Interpretation Comments MPV (test code = MPV) 8.1 7.4-10.4 [facility] WorthJxlreowXZIBAIARDQ7492-47-81 19:24:00 Test Item Value Reference Range Interpretation Comments Stomatocyte (test code = Stomatocyte) Slight [facility] Wor[id number] 19:24:00 Test Item Value Reference Range Interpretation Comments Basophils # (test code 0.1 See_Comment [Aut omated message] The = Basophils #) system which generated this result tra nsmitted reference range : <=0.2. The reference r ozzy was not used to int erpret this result as normal/abnormal . [facility] WorthIsuychhPGEJPQYOBF1729-02-57 19:24:00 Test Item Value Reference Range Interpretation Comments Eosinophils # (test code 0.2 See_Comment [A utomated message] The = Eosinophils #) system whic h generated this result tra nsmitted reference range : <=0.5. The reference r ozzy was not used to int erpret this result as normal/abnormal . [facility] WorthFsptnfzMWPPKQKOBB8935-27-13 19:24:00 Test Item Value Reference Range Interpretation Comments Hypochrom (test code = 1+ (08/24/14 1:24 PM) Hypochrom) [facility] WorthPuxmqwiGLLQDOKARI1733-26-44 19:24:00 Test Item Value Reference Range Interpretation Comments Lymphocytes # (test code = Lymphocytes 2.8 1.0-5.5 #) [facility] Wor[id number] 19:24:00 Test Item Value Reference Range Interpretation Comments Segs-Bands # (test code = Segs-Bands #) 8.1 1.5-8.1 [facility] WorthKdnvxciPZMPTZLKYX3891-04-46 19:24:00 Test Item Value Reference Range Interpretation Comments Monocytes # (test code 0.2 See_Comment [Aut omated message] The = Monocytes #) system which generated this result tra nsmitted reference range : <=0.8. The reference r ozzy was not used to int erpret this result as normal/abnormal . [facility] WorthUulpnhrDCSSTPRHQQ5445-66-41 19:24:00 Test Item Value Reference Range Interpretation Comments Lymphocytes (test code = Lymphocytes) 24.5 20.0-40.0 [facility] WorthRqhzrvtLCNEJWAAJH7541-27-83 19:24:00 Test Item Value Reference Range Interpretation Comments Segs (test code = Segs) 71.8 45.0-75.0 [facility] WorthOsfligvCTGIZQCXUQ2264-85-22 19:24:00 Test Item Value Reference Range Interpretation Comments Basophils (test code = 0.6 See_Comment [Aut omated message] The Basophils) system which ge nerated this result tra nsmitted reference range : <=1.0. The reference r ozzy was not used to int erpret this result as normal/abnormal . [facility] WorthZtdiapcWRGEGMLLLP3614-65-48 19:24:00 Test Item Value Reference Range Interpretation Comments Monocytes (test code = Monocytes) 1.5 2.0-12.0 [facility] WorthGyvyapdCWSSIWWVQA8643-61-54 19:24:00 Test Item Value Reference Range Interpretation Comments Eosinophils (test code = 1.6 See_Comment [A utomated message] The Eosinophils) system which ge nerated this result tra nsmitted reference range : <=4.0. The reference r ozzy was not used to int erpret this result as normal/abnormal . [facility] WorthOsesfuqHDWAYVPNYF2781-20-90 19:24:00 Test Item Value Reference Range Interpretation Comments Plt Morph (test code = Normal (08/24/14 1:24 Plt Morph) PM) [facility] AND [id number] 19:24:00 Test Item Value Reference Range Interpretation Comments UA Sq Epi (test code = UA Sq Occasional /LPF Epi) [facility] AND [id number] 19:24:00 Test Item Value Reference Range Interpretation Comments UA Bacteria (test code = UA Occasional /HPF Bacteria) [facility] AND [id number] 19:24:00 Test Item Value Reference Range Interpretation Comments UA Mucus (test code = None Seen (08/24/14 UA Mucus) 1:24 PM) [facility] AND [id number] 19:24:00 Test Item Value Reference Range Interpretation Comments UA WBC (test code = UA WBC) 0-2 /HPF [facility] AND [id number] 19:24:00 Test Item Value Reference Range Interpretation Comments UA RBC (test code = 0-2 /HPF See_Comment [Automa gaye message] The UA RBC) system which ge nerated this result tra nsmitted reference range : <=2. The reference range was not used to interpr et this result as satish l/abnormal. [facility] AND [id number] 19:24:00 Test Item Value Reference Range Interpretation Comments UA Leuk Est (test Moderate *ABN*(08/24/14 code = UA Leuk Est) 1:24 PM) [facility] AND [id number] 19:24:00 Test Item Value Reference Range Interpretation Comments UA Nitrite (test code Negative (08/24/14 1:24 = UA Nitrite) PM) [facility] AND [id number] 19:24:00 Test Item Value Reference Range Interpretation Comments UA Urobilinogen (test code = UA 0.2 0.1-1.0 Urobilinogen) [facility] AND [id number] 19:24:00 Test Item Value Reference Range Interpretation Comments UA Ketones (test code Negative *NA*(08/24/14 = UA Ketones) 1:24 PM) [facility] AND [id number] 19:24:00 Test Item Value Reference Range Interpretation Comments UA Blood (test code = Negative (08/24/14 1:24 UA Blood) PM) [facility] AND [id number] 19:24:00 Test Item Value Reference Range Interpretation Comments UA Bili (test code = Negative *NA*(08/24/14 UA Bili) 1:24 PM) [facility] AND [id number] 19:24:00 Test Item Value Reference Range Interpretation Comments UA Color (test code = Yellow *NA*(08/24/14 UA Color) 1:24 PM) [facility] AND [id number] 19:24:00 Test Item Value Reference Range Interpretation Comments UA Glucose (test code Negative (08/24/14 1:24 = UA Glucose) PM) [facility] AND [id number] 19:24:00 Test Item Value Reference Range Interpretation Comments UA Protein (test code Negative (08/24/14 1:24 = UA Protein) PM) [facility] AND [id number] 19:24:00 Test Item Value Reference Range Interpretation Comments UA pH (test code = UA pH) 6.0 1 5.0-8.0 [facility] AND [id number] 19:24:00 Test Item Value Reference Range Interpretation Comments UA Spec Grav (test code *NA*(08/24/14 1:24 PM) = UA Spec Grav) [facility] AND [id number] 19:24:00 Test Item Value Reference Range Interpretation Comments UA Turbidity (test code = Clear (08/24/14 1:24 UA Turbidity) PM) [facility]2015-01-12 19:24:00 Test Item Value Reference Range Interpretation Comments Lipase Lvl (test code = Lipase Lvl) 104 73-393 [facility]2015-01-12 19:24:00 Test Item Value Reference Range Interpretation Comments eGFR (test code = eGFR) 109 [facility]2015-01-12 19:24:00 Test Item Value Reference Range Interpretation Comments Bili Total (test code = Bili Total) 0.6 0.2-1.3 [facility]2015-01-12 19:24:00 Test Item Value Reference Range Interpretation Comments Alk Phos (test code = Alk Phos) 72 39-136 [facility]2015-01-12 19:24:00 Test Item Value Reference Range Interpretation Comments Calcium Lvl (test code = Calcium Lvl) 8.8 8.5-10.5 [facility]2015-01-12 19:24:00 Test Item Value Reference Range Interpretation Comments CO2 (test code = CO2) 28 24-32 [facility]2015-01-12 19:24:00 Test Item Value Reference Range Interpretation Comments Chloride Lvl (test code = Chloride Lvl) 107 95-109 [facility]2015-01-12 19:24:00 Test Item Value Reference Range Interpretation Comments Potassium Lvl (test code = Potassium 3.9 3.5-5.1 Lvl) [facility]2015-01-12 19:24:00 Test Item Value Reference Range Interpretation Comments Glucose Lvl (test code = Glucose Lvl) 90 70-99 [facility]2015-01-12 19:24:00 Test Item Value Reference Range Interpretation Comments Sodium Lvl (test code = Sodium Lvl) 138 135-145 [facility]2015-01-12 19:24:00 Test Item Value Reference Range Interpretation Comments BUN (test code = BUN) 7 7-22 [facility]2015-01-12 19:24:00 Test Item Value Reference Range Interpretation Comments Creatinine Lvl (test code = Creatinine 0.7 0.5-1.4 Lvl) [facility]2015-01-12 19:24:00 Test Item Value Reference Range Interpretation Comments ALT (test code = ALT) 23 See_Comment [Auto mated message] The system which ge nerated this result transmit gaye reference range : <=65. The reference range was not used to interpr et this result as satish l/abnormal. [facility]2015-01-12 19:24:00 Test Item Value Reference Range Interpretation Comments AST (test code = AST) 12 See_Comment [Auto mated message] The system which ge nerated this result transmit gaye reference range : <=37. The reference range was not used to interpr et this result as satish l/abnormal. [facility]2015-01-12 19:24:00 Test Item Value Reference Range Interpretation Comments Albumin Lvl (test code = Albumin Lvl) 3.8 3.5-5.0 [facility]2015-01-12 19:24:00 Test Item Value Reference Range Interpretation Comments Total Protein (test code = Total 8.0 6.4-8.4 Protein) [facility]2015-01-12 19:24:00 Test Item Value Reference Range Interpretation Comments A/G Ratio (test code = A/G Ratio) 0.9 0.7-1.6 [place] [id number] 19:24:00 Test Item Value Reference Range Interpretation Comments AGAP (test code = AGAP) 6.9 10.0-20.0 [facility]2015-01-12 19:24:00 Test Item Value Reference Range Interpretation Comments B/C Ratio (test code = B/C Ratio) 10 6-[id number] 19:24:00 Test Item Value Reference Range Interpretation Comments Globulin (test code = Globulin) 4.2 2.0-4.0 [facility]QCV2174[facility] 19:24:00 Test Item Value Reference Range Interpretation Comments S Preg (test code = S Negative *NA*(08/24/14 Preg) 1:24 PM) [facility]CxwtexwSNGVAQEENQ3790-98-86 19:24:00 Test Item Value Reference Range Interpretation Comments WBC (test code = WBC) 11.3 3.7-10.4 [facility] WorthXwunipvFIEFDLYWSC7525-91-33 19:24:00 Test Item Value Reference Range Interpretation Comments RBC (test code = RBC) 4.75 4.20-5.40 [facility] WorthLqlomgrZXRJTHHOKN5758-74-41 19:24:00 Test Item Value Reference Range Interpretation Comments Platelet (test code = Platelet) 402 133-450 [facility] WorthMxgynobAYLUJULGPT1685-45-50 19:24:00 Test Item Value Reference Range Interpretation Comments MCV (test code = MCV) 89.9 80.0-98.0 [facility] WorthKxcttpjOFFSQFAMUM3653-23-41 19:24:00 Test Item Value Reference Range Interpretation Comments Hct (test code = Hct) 42.7 36.0-48.0 [facility] WorthYlexmatSFMRENOHSB6589-17-84 19:24:00 Test Item Value Reference Range Interpretation Comments Hgb (test code = Hgb) 14.5 12.0-16.0 [facility] Wor[id number] 19:24:00 Test Item Value Reference Range Interpretation Comments RDW (test code = RDW) 13.5 11.5-14.5 [facility] WorthMbuzujeXFELIJTCJJ9994-87-28 19:24:00 Test Item Value Reference Range Interpretation Comments MCHC (test code = MCHC) 34.0 32.0-36.0 [facility] WorthKgxtfpjYALWYGBXEP2305-83-33 19:24:00 Test Item Value Reference Range Interpretation Comments MCH (test code = MCH) 30.6 pg 27.0-31.0 [facility] WorthQduvwbcTCHYGQPGJM5926-89-31 19:24:00 Test Item Value Reference Range Interpretation Comments MPV (test code = MPV) 8.1 7.4-10.4 [facility] WorthOgcncolPDHPLSKITF5529-16-98 19:24:00 Test Item Value Reference Range Interpretation Comments Stomatocyte (test code = Stomatocyte) Slight [facility] [id number] 19:24:00 Test Item Value Reference Range Interpretation Comments Basophils # (test code 0.1 See_Comment [Aut omated message] The = Basophils #) system which generated this result tra nsmitted reference range : <=0.2. The reference r ozzy was not used to int erpret this result as normal/abnormal . [facility] WorthS[id number] 19:24:00 Test Item Value Reference Range Interpretation Comments Eosinophils # (test code 0.2 See_Comment [A utomated message] The = Eosinophils #) system whic h generated this result tra nsmitted reference range : <=0.5. The reference r ozzy was not used to int erpret this result as normal/abnormal . [facility] Wor[id number] 19:24:00 Test Item Value Reference Range Interpretation Comments Hypochrom (test code = 1+ (08/24/14 1:24 PM) Hypochrom) [facility] [id number] 19:24:00 Test Item Value Reference Range Interpretation Comments Lymphocytes # (test code = Lymphocytes 2.8 1.0-5.5 #) [facility] WorthNylrcwrQZAADWDXDH7656-36-49 19:24:00 Test Item Value Reference Range Interpretation Comments Segs-Bands # (test code = Segs-Bands #) 8.1 1.5-8.1 [facility] WorthBuubzxfYQUJFOARAL7615-86-04 19:24:00 Test Item Value Reference Range Interpretation Comments Monocytes # (test code 0.2 See_Comment [Aut omated message] The = Monocytes #) system which generated this result tra nsmitted reference range : <=0.8. The reference r ozzy was not used to int erpret this result as normal/abnormal . [facility] WorthVwmhcvmOIBETRRLBS9516-15-39 19:24:00 Test Item Value Reference Range Interpretation Comments Lymphocytes (test code = Lymphocytes) 24.5 20.0-40.0 [facility] [id number] 19:24:00 Test Item Value Reference Range Interpretation Comments Segs (test code = Segs) 71.8 45.0-75.0 [facility] WorthEypylneENLKJWOURR8232-42-24 19:24:00 Test Item Value Reference Range Interpretation Comments Basophils (test code = 0.6 See_Comment [Aut omated message] The Basophils) system which ge nerated this result tra nsmitted reference range : <=1.0. The reference r ozzy was not used to int erpret this result as normal/abnormal . [facility] WorthOtmmcpsGFUZGBHVTL6989-57-77 19:24:00 Test Item Value Reference Range Interpretation Comments Monocytes (test code = Monocytes) 1.5 2.0-12.0 [facility] WorthSnfxddfANLBYLCXIL6866-42-23 19:24:00 Test Item Value Reference Range Interpretation Comments Eosinophils (test code = 1.6 See_Comment [A utomated message] The Eosinophils) system which ge nerated this result tra nsmitted reference range : <=4.0. The reference r ozzy was not used to int erpret this result as normal/abnormal . [facility] Wor[id number] 19:24:00 Test Item Value Reference Range Interpretation Comments Plt Morph (test code = Normal (08/24/14 1:24 Plt Morph) PM) [facility] AND [id number] 19:24:00 Test Item Value Reference Range Interpretation Comments UA Sq Epi (test code = UA Sq Occasional /LPF Epi) [facility] AND [id number] 19:24:00 Test Item Value Reference Range Interpretation Comments UA Bacteria (test code = UA Occasional /HPF Bacteria) [facility] AND [id number] 19:24:00 Test Item Value Reference Range Interpretation Comments UA Mucus (test code = None Seen (08/24/14 UA Mucus) 1:24 PM) [facility] AND [id number] 19:24:00 Test Item Value Reference Range Interpretation Comments UA WBC (test code = UA WBC) 0-2 /HPF [facility] AND [id number] 19:24:00 Test Item Value Reference Range Interpretation Comments UA RBC (test code = 0-2 /HPF See_Comment [Automa gaye message] The UA RBC) system which ge nerated this result tra nsmitted reference range : <=2. The reference range was not used to interpr et this result as satish l/abnormal. [facility] AND [id number] 19:24:00 Test Item Value Reference Range Interpretation Comments UA Leuk Est (test Moderate *ABN*(08/24/14 code = UA Leuk Est) 1:24 PM) [facility] AND [id number] 19:24:00 Test Item Value Reference Range Interpretation Comments UA Nitrite (test code Negative (08/24/14 1:24 = UA Nitrite) PM) [facility] AND [id number] 19:24:00 Test Item Value Reference Range Interpretation Comments UA Urobilinogen (test code = UA 0.2 0.1-1.0 Urobilinogen) [facility] AND [id number] 19:24:00 Test Item Value Reference Range Interpretation Comments UA Ketones (test code Negative *NA*(08/24/14 = UA Ketones) 1:24 PM) [facility] AND [id number] 19:24:00 Test Item Value Reference Range Interpretation Comments UA Blood (test code = Negative (08/24/14 1:24 UA Blood) PM) [facility] AND [id number] 19:24:00 Test Item Value Reference Range Interpretation Comments UA Bili (test code = Negative *NA*(08/24/14 UA Bili) 1:24 PM) [facility] AND [id number] 19:24:00 Test Item Value Reference Range Interpretation Comments UA Color (test code = Yellow *NA*(08/24/14 UA Color) 1:24 PM) [facility] AND [id number] 19:24:00 Test Item Value Reference Range Interpretation Comments UA Glucose (test code Negative (08/24/14 1:24 = UA Glucose) PM) [facility] AND [id number] 19:24:00 Test Item Value Reference Range Interpretation Comments UA Protein (test code Negative (08/24/14 1:24 = UA Protein) PM) [facility] AND [id number] 19:24:00 Test Item Value Reference Range Interpretation Comments UA pH (test code = UA pH) 6.0 1 5.0-8.0 [facility] AND [id number] 19:24:00 Test Item Value Reference Range Interpretation Comments UA Spec Grav (test code *NA*(08/24/14 1:24 PM) = UA Spec Grav) [facility] AND [id number] 19:24:00 Test Item Value Reference Range Interpretation Comments UA Turbidity (test code = Clear (08/24/14 1:24 UA Turbidity) PM) [facility] [id number] 19:24:00 Test Item Value Reference Range Interpretation Comments Lipase Lvl (test code = Lipase Lvl) 104 73-393 [facility]2015-01-12 19:24:00 Test Item Value Reference Range Interpretation Comments eGFR (test code = eGFR) 109 [facility]2015-01-12 19:24:00 Test Item Value Reference Range Interpretation Comments Bili Total (test code = Bili Total) 0.6 0.2-1.3 [facility]2015-01-12 19:24:00 Test Item Value Reference Range Interpretation Comments Alk Phos (test code = Alk Phos) 72 39-136 [facility]2015-01-12 19:24:00 Test Item Value Reference Range Interpretation Comments Calcium Lvl (test code = Calcium Lvl) 8.8 8.5-10.5 [facility]2015-01-12 19:24:00 Test Item Value Reference Range Interpretation Comments CO2 (test code = CO2) 28 24-32 [facility]2015-01-12 19:24:00 Test Item Value Reference Range Interpretation Comments Chloride Lvl (test code = Chloride Lvl) 107 95-109 [facility]2015-01-12 19:24:00 Test Item Value Reference Range Interpretation Comments Potassium Lvl (test code = Potassium 3.9 3.5-5.1 Lvl) [facility]2015-01-12 19:24:00 Test Item Value Reference Range Interpretation Comments Glucose Lvl (test code = Glucose Lvl) 90 70-99 [facility]2015-01-12 19:24:00 Test Item Value Reference Range Interpretation Comments Sodium Lvl (test code = Sodium Lvl) 138 135-145 [facility]2015-01-12 19:24:00 Test Item Value Reference Range Interpretation Comments BUN (test code = BUN) 7 7-22 [place] [id number] 19:24:00 Test Item Value Reference Range Interpretation Comments Creatinine Lvl (test code = Creatinine 0.7 0.5-1.4 Lvl) [facility]2015-01-12 19:24:00 Test Item Value Reference Range Interpretation Comments ALT (test code = ALT) 23 See_Comment [Auto mated message] The system which ge nerated this result transmit gaye reference range : <=65. The reference range was not used to interpr et this result as satish l/abnormal. [facility]2015-01-12 19:24:00 Test Item Value Reference Range Interpretation Comments AST (test code = AST) 12 See_Comment [Auto mated message] The system which ge nerated this result transmit gaye reference range : <=37. The reference range was not used to interpr et this result as satish l/abnormal. [facility]2015-01-12 19:24:00 Test Item Value Reference Range Interpretation Comments Albumin Lvl (test code = Albumin Lvl) 3.8 3.5-5.0 [facility]2015-01-12 19:24:00 Test Item Value Reference Range Interpretation Comments Total Protein (test code = Total 8.0 6.4-8.4 Protein) [facility]2015-01-12 19:24:00 Test Item Value Reference Range Interpretation Comments A/G Ratio (test code = A/G Ratio) 0.9 0.7-1.6 [facility]2015-01-12 19:24:00 Test Item Value Reference Range Interpretation Comments AGAP (test code = AGAP) 6.9 10.0-20.0 [facility]2015-01-12 19:24:00 Test Item Value Reference Range Interpretation Comments B/C Ratio (test code = B/C Ratio) 10 6-25 [facility]2015-01-12 19:24:00 Test Item Value Reference Range Interpretation Comments Globulin (test code = Globulin) 4.2 2.0-4.0 [facility]nbPOHJBTXGBXJYW6791-10-96 19:24:00 Test Item Value Reference Range Interpretation Comments S Preg (test code = S Negative *NA*(08/24/14 Preg) 1:24 PM) [facility] [id number] 19:24:00 Test Item Value Reference Range Interpretation Comments WBC (test code = WBC) 11.3 3.7-10.4 [facility] [id number] 19:24:00 Test Item Value Reference Range Interpretation Comments RBC (test code = RBC) 4.75 4.20-5.40 [facility] [id number] 19:24:00 Test Item Value Reference Range Interpretation Comments Platelet (test code = Platelet) 402 133-450 [facility] WorthTgejwkgDUAYQIFSQB8307-20-71 19:24:00 Test Item Value Reference Range Interpretation Comments MCV (test code = MCV) 89.9 80.0-98.0 [facility] WorthBomrucbFTRGRFPIWT1468-26-81 19:24:00 Test Item Value Reference Range Interpretation Comments Hct (test code = Hct) 42.7 36.0-48.0 [facility] WorthMjqfiqjVITVDQWAKS9632-43-17 19:24:00 Test Item Value Reference Range Interpretation Comments Hgb (test code = Hgb) 14.5 12.0-16.0 [facility] WorthYcckmceKJEHKSCFJS3342-40-00 19:24:00 Test Item Value Reference Range Interpretation Comments RDW (test code = RDW) 13.5 11.5-14.5 [facility] WorthTmxikshJCTZNPOKUY0564-10-28 19:24:00 Test Item Value Reference Range Interpretation Comments MCHC (test code = MCHC) 34.0 32.0-36.0 [facility] [id number] 19:24:00 Test Item Value Reference Range Interpretation Comments MCH (test code = MCH) 30.6 pg 27.0-31.0 [facility] WorthWoywyvfWNMYDZKNYZ7882-76-39 19:24:00 Test Item Value Reference Range Interpretation Comments MPV (test code = MPV) 8.1 7.4-10.4 [facility] WorthDkalndqGCNAZDGNXD8415-01-18 19:24:00 Test Item Value Reference Range Interpretation Comments Stomatocyte (test code = Stomatocyte) Slight [facility] WorthIcajqfvBYTUWDAFSX0693-40-92 19:24:00 Test Item Value Reference Range Interpretation Comments Basophils # (test code 0.1 See_Comment [Aut omated message] The = Basophils #) system which generated this result tra nsmitted reference range : <=0.2. The reference r ozzy was not used to int erpret this result as normal/abnormal . [facility] WorthBknalkhHDDGUPIEWQ2116-72-38 19:24:00 Test Item Value Reference Range Interpretation Comments Eosinophils # (test code 0.2 See_Comment [A utomated message] The = Eosinophils #) system whic h generated this result tra nsmitted reference range : <=0.5. The reference r ozzy was not used to int erpret this result as normal/abnormal . [facility] WorthOhomovxZTJIVEILSY1300-34-27 19:24:00 Test Item Value Reference Range Interpretation Comments Hypochrom (test code = 1+ (08/24/14 1:24 PM) Hypochrom) [facility] Wor[id number] 19:24:00 Test Item Value Reference Range Interpretation Comments Lymphocytes # (test code = Lymphocytes 2.8 1.0-5.5 #) [facility] WorthTfsroshPXXXXZYHNJ3103-28-00 19:24:00 Test Item Value Reference Range Interpretation Comments Segs-Bands # (test code = Segs-Bands #) 8.1 1.5-8.1 [facility] Wor[id number] 19:24:00 Test Item Value Reference Range Interpretation Comments Monocytes # (test code 0.2 See_Comment [Aut omated message] The = Monocytes #) system which generated this result tra nsmitted reference range : <=0.8. The reference r ozzy was not used to int erpret this result as normal/abnormal . [facility] WorthWirgndxOVKUJJIWQO6662-76-82 19:24:00 Test Item Value Reference Range Interpretation Comments Lymphocytes (test code = Lymphocytes) 24.5 20.0-40.0 [facility] WorthAvtzfcwWNVOUPLVDU2429-83-18 19:24:00 Test Item Value Reference Range Interpretation Comments Segs (test code = Segs) 71.8 45.0-75.0 [facility] WorthEmafxozRDIVDUYZFU9193-09-15 19:24:00 Test Item Value Reference Range Interpretation Comments Basophils (test code = 0.6 See_Comment [Aut omated message] The Basophils) system which ge nerated this result tra nsmitted reference range : <=1.0. The reference r ozzy was not used to int erpret this result as normal/abnormal . [facility] WorthPxhhupuZKGWLQGBZP6257-88-32 19:24:00 Test Item Value Reference Range Interpretation Comments Monocytes (test code = Monocytes) 1.5 2.0-12.0 [facility] WorthDvsjmibLCCZSIPSNQ6608-57-39 19:24:00 Test Item Value Reference Range Interpretation Comments Eosinophils (test code = 1.6 See_Comment [A utomated message] The Eosinophils) system which ge nerated this result tra nsmitted reference range : <=4.0. The reference r ozzy was not used to int erpret this result as normal/abnormal . [facility] WorthOyunnbtHQCOHFRUEN6246-31-25 19:24:00 Test Item Value Reference Range Interpretation Comments Plt Morph (test code = Normal (08/24/14 1:24 Plt Morph) PM) [facility] AND [id number] 19:24:00 Test Item Value Reference Range Interpretation Comments UA Sq Epi (test code = UA Sq Occasional /LPF Epi) [facility] AND [id number] 19:24:00 Test Item Value Reference Range Interpretation Comments UA Bacteria (test code = UA Occasional /HPF Bacteria) [facility] AND [id number] 19:24:00 Test Item Value Reference Range Interpretation Comments UA Mucus (test code = None Seen (08/24/14 UA Mucus) 1:24 PM) [facility] AND [id number] 19:24:00 Test Item Value Reference Range Interpretation Comments UA WBC (test code = UA WBC) 0-2 /HPF [facility] AND [id number] 19:24:00 Test Item Value Reference Range Interpretation Comments UA RBC (test code = 0-2 /HPF See_Comment [Automa gaye message] The UA RBC) system which ge nerated this result tra nsmitted reference range : <=2. The reference range was not used to interpr et this result as satish l/abnormal. [facility] AND [id number] 19:24:00 Test Item Value Reference Range Interpretation Comments UA Leuk Est (test Moderate *ABN*(08/24/14 code = UA Leuk Est) 1:24 PM) [facility] AND [id number] 19:24:00 Test Item Value Reference Range Interpretation Comments UA Nitrite (test code Negative (08/24/14 1:24 = UA Nitrite) PM) [facility] AND [id number] 19:24:00 Test Item Value Reference Range Interpretation Comments UA Urobilinogen (test code = UA 0.2 0.1-1.0 Urobilinogen) [facility] AND [id number] 19:24:00 Test Item Value Reference Range Interpretation Comments UA Ketones (test code Negative *NA*(08/24/14 = UA Ketones) 1:24 PM) [facility] AND [id number] 19:24:00 Test Item Value Reference Range Interpretation Comments UA Blood (test code = Negative (08/24/14 1:24 UA Blood) PM) [facility] AND [id number] 19:24:00 Test Item Value Reference Range Interpretation Comments UA Bili (test code = Negative *NA*(08/24/14 UA Bili) 1:24 PM) [facility] AND [id number] 19:24:00 Test Item Value Reference Range Interpretation Comments UA Color (test code = Yellow *NA*(08/24/14 UA Color) 1:24 PM) [facility] AND [id number] 19:24:00 Test Item Value Reference Range Interpretation Comments UA Glucose (test code Negative (08/24/14 1:24 = UA Glucose) PM) [facility] AND [id number] 19:24:00 Test Item Value Reference Range Interpretation Comments UA Protein (test code Negative (08/24/14 1:24 = UA Protein) PM) [facility] AND [id number] 19:24:00 Test Item Value Reference Range Interpretation Comments UA pH (test code = UA pH) 6.0 1 5.0-8.0 [facility] AND [id number] 19:24:00 Test Item Value Reference Range Interpretation Comments UA Spec Grav (test code *NA*(08/24/14 1:24 PM) = UA Spec Grav) [facility] AND [id number] 19:24:00 Test Item Value Reference Range Interpretation Comments UA Turbidity (test code = Clear (08/24/14 1:24 UA Turbidity) PM) [id number] 19:24:00 Test Item Value Reference Range Interpretation Comments Lipase Lvl (test code = Lipase Lvl) 104 73-393 [facility]2015-01-12 19:24:00 Test Item Value Reference Range Interpretation Comments eGFR (test code = eGFR) 109 [facility]2015-01-12 19:24:00 Test Item Value Reference Range Interpretation Comments Bili Total (test code = Bili Total) 0.6 0.2-1.3 [place] [id number] 19:24:00 Test Item Value Reference Range Interpretation Comments Alk Phos (test code = Alk Phos) 72 39-136 [facility]2015-01-12 19:24:00 Test Item Value Reference Range Interpretation Comments Calcium Lvl (test code = Calcium Lvl) 8.8 8.5-10.5 [facility]2015-01-12 19:24:00 Test Item Value Reference Range Interpretation Comments CO2 (test code = CO2) 28 24-32 [facility]2015-01-12 19:24:00 Test Item Value Reference Range Interpretation Comments Chloride Lvl (test code = Chloride Lvl) 107 95-109 [facility]2015-01-12 19:24:00 Test Item Value Reference Range Interpretation Comments Potassium Lvl (test code = Potassium 3.9 3.5-5.1 Lvl) [facility]2015-01-12 19:24:00 Test Item Value Reference Range Interpretation Comments Glucose Lvl (test code = Glucose Lvl) 90 70-99 [facility]2015-01-12 19:24:00 Test Item Value Reference Range Interpretation Comments Sodium Lvl (test code = Sodium Lvl) 138 135-145 [facility]2015-01-12 19:24:00 Test Item Value Reference Range Interpretation Comments BUN (test code = BUN) 7 7-22 [facility]2015-01-12 19:24:00 Test Item Value Reference Range Interpretation Comments Creatinine Lvl (test code = Creatinine 0.7 0.5-1.4 Lvl) [facility]2015-01-12 19:24:00 Test Item Value Reference Range Interpretation Comments ALT (test code = ALT) 23 See_Comment [Auto mated message] The system which ge nerated this result transmit gaye reference range : <=65. The reference range was not used to interpr et this result as satish l/abnormal. [facility]2015-01-12 19:24:00 Test Item Value Reference Range Interpretation Comments AST (test code = AST) 12 See_Comment [Auto mated message] The system which ge nerated this result transmit gaye reference range : <=37. The reference range was not used to interpr et this result as satish l/abnormal. [facility]2015-01-12 19:24:00 Test Item Value Reference Range Interpretation Comments Albumin Lvl (test code = Albumin Lvl) 3.8 3.5-5.0 [facility]2015-01-12 19:24:00 Test Item Value Reference Range Interpretation Comments Total Protein (test code = Total 8.0 6.4-8.4 Protein) [facility]2015-01-12 19:24:00 Test Item Value Reference Range Interpretation Comments A/G Ratio (test code = A/G Ratio) 0.9 0.7-1.6 [facility]2015-01-12 19:24:00 Test Item Value Reference Range Interpretation Comments AGAP (test code = AGAP) 6.9 10.0-20.0 [facility]2015-01-12 19:24:00 Test Item Value Reference Range Interpretation Comments B/C Ratio (test code = B/C Ratio) 10 6-25 [facility]2015-01-12 19:24:00 Test Item Value Reference Range Interpretation Comments Globulin (test code = Globulin) 4.2 2.0-4.0 [facility]hdlERPRHLRFJCIXR6803-66-08 19:24:00 Test Item Value Reference Range Interpretation Comments S Preg (test code = S Negative *NA*(08/24/14 Preg) 1:24 PM) [facility]LpdvylkYPDOBGUAZW9371-78-60 19:24:00 Test Item Value Reference Range Interpretation Comments WBC (test code = WBC) 11.3 3.7-10.4 [facility] WorthKgubfzuZSDZIHIDHD3553-93-62 19:24:00 Test Item Value Reference Range Interpretation Comments RBC (test code = RBC) 4.75 4.20-5.40 [facility] WorthAqhcysvEYBDLRQQGY2262-99-31 19:24:00 Test Item Value Reference Range Interpretation Comments Platelet (test code = Platelet) 402 133-450 [facility] WorthKkfzptyMJNPKGDLGG1193-53-40 19:24:00 Test Item Value Reference Range Interpretation Comments MCV (test code = MCV) 89.9 80.0-98.0 [facility] WorthPwtybemSPIHHYKCPP2651-42-86 19:24:00 Test Item Value Reference Range Interpretation Comments Hct (test code = Hct) 42.7 36.0-48.0 [facility] WorthImvlxtsUBBERUZSPY4762-67-59 19:24:00 Test Item Value Reference Range Interpretation Comments Hgb (test code = Hgb) 14.5 12.0-16.0 [facility] WorthQsphubyMMQBTGXQKX9673-37-53 19:24:00 Test Item Value Reference Range Interpretation Comments RDW (test code = RDW) 13.5 11.5-14.5 [facility] WorthJzcyonuXPLXCXZVGW7912-30-16 19:24:00 Test Item Value Reference Range Interpretation Comments MCHC (test code = MCHC) 34.0 32.0-36.0 [facility] WorthConvqooSLFZQKNOAX7706-06-08 19:24:00 Test Item Value Reference Range Interpretation Comments MCH (test code = MCH) 30.6 pg 27.0-31.0 [facility] WorthHkvsgjlSGAQZTBLJQ4017-44-20 19:24:00 Test Item Value Reference Range Interpretation Comments MPV (test code = MPV) 8.1 7.4-10.4 [facility] WorthBpbfnhlUKVZRNEGFD2667-86-29 19:24:00 Test Item Value Reference Range Interpretation Comments Stomatocyte (test code = Stomatocyte) Slight [facility] WorthNmaekbiKZWMALVGFV8737-09-03 19:24:00 Test Item Value Reference Range Interpretation Comments Basophils # (test code 0.1 See_Comment [Aut omated message] The = Basophils #) system which generated this result tra nsmitted reference range : <=0.2. The reference r ozzy was not used to int erpret this result as normal/abnormal . [facility] WorthJbdibxrSLZMSZBVIC3119-90-16 19:24:00 Test Item Value Reference Range Interpretation Comments Eosinophils # (test code 0.2 See_Comment [A utomated message] The = Eosinophils #) system whic h generated this result tra nsmitted reference range : <=0.5. The reference r ozzy was not used to int erpret this result as normal/abnormal . [facility] WorthJdsjlspMQLRUCEMAM3970-42-40 19:24:00 Test Item Value Reference Range Interpretation Comments Hypochrom (test code = 1+ (08/24/14 1:24 PM) Hypochrom) [facility] WorthRpusegbPXERUFOKSQ0534-25-15 19:24:00 Test Item Value Reference Range Interpretation Comments Lymphocytes # (test code = Lymphocytes 2.8 1.0-5.5 #) [facility] WorthFyivhojHICNUXWGKW0205-94-23 19:24:00 Test Item Value Reference Range Interpretation Comments Segs-Bands # (test code = Segs-Bands #) 8.1 1.5-8.1 [facility] WorthSfcsunfYEAMSNEARK4871-86-14 19:24:00 Test Item Value Reference Range Interpretation Comments Monocytes # (test code 0.2 See_Comment [Aut omated message] The = Monocytes #) system which generated this result tra nsmitted reference range : <=0.8. The reference r ozzy was not used to int erpret this result as normal/abnormal . [facility] WorthHnfzctzKXYGYIXWRO1026-98-94 19:24:00 Test Item Value Reference Range Interpretation Comments Lymphocytes (test code = Lymphocytes) 24.5 20.0-40.0 [facility] WorthMqhlhhcXOFDSJJXOR2326-92-96 19:24:00 Test Item Value Reference Range Interpretation Comments Segs (test code = Segs) 71.8 45.0-75.0 [facility] WorthDmbrlvrCRZIZOWRSK5411-28-70 19:24:00 Test Item Value Reference Range Interpretation Comments Basophils (test code = 0.6 See_Comment [Aut omated message] The Basophils) system which ge nerated this result tra nsmitted reference range : <=1.0. The reference r ozzy was not used to int erpret this result as normal/abnormal . [facility] WorthHczhthwVQJERXRYZF3748-01-46 19:24:00 Test Item Value Reference Range Interpretation Comments Monocytes (test code = Monocytes) 1.5 2.0-12.0 [facility] WorthEhpfegpLMMFZPQGIT6743-76-91 19:24:00 Test Item Value Reference Range Interpretation Comments Eosinophils (test code = 1.6 See_Comment [A utomated message] The Eosinophils) system which ge nerated this result tra nsmitted reference range : <=4.0. The reference r ozzy was not used to int erpret this result as normal/abnormal . [facility] WorthYvfcumtHCSPRGTXRG5462-29-09 19:24:00 Test Item Value Reference Range Interpretation Comments Plt Morph (test code = Normal (08/24/14 1:24 Plt Morph) PM) [facility] [id number] 19:24:00 Test Item Value Reference Range Interpretation Comments UA Sq Epi (test code = UA Sq Occasional /LPF Epi) [facility] [id number] 19:24:00 Test Item Value Reference Range Interpretation Comments UA Bacteria (test code = UA Occasional /HPF Bacteria) [facility] AND [id number] 19:24:00 Test Item Value Reference Range Interpretation Comments UA Mucus (test code = None Seen (08/24/14 UA Mucus) 1:24 PM) [facility] AND [id number] 19:24:00 Test Item Value Reference Range Interpretation Comments UA WBC (test code = UA WBC) 0-2 /HPF [facility] [id number] 19:24:00 Test Item Value Reference Range Interpretation Comments UA RBC (test code = 0-2 /HPF See_Comment [Automa gaye message] The UA RBC) system which ge nerated this result tra nsmitted reference range : <=2. The reference range was not used to interpr et this result as satish l/abnormal. [facility] AND [id number] 19:24:00 Test Item Value Reference Range Interpretation Comments UA Leuk Est (test Moderate *ABN*(08/24/14 code = UA Leuk Est) 1:24 PM) [facility] AND [id number] 19:24:00 Test Item Value Reference Range Interpretation Comments UA Nitrite (test code Negative (08/24/14 1:24 = UA Nitrite) PM) [facility] AND [id number] 19:24:00 Test Item Value Reference Range Interpretation Comments UA Urobilinogen (test code = UA 0.2 0.1-1.0 Urobilinogen) [facility] [id number] 19:24:00 Test Item Value Reference Range Interpretation Comments UA Ketones (test code Negative *NA*(08/24/14 = UA Ketones) 1:24 PM) [facility] AND [id number] 19:24:00 Test Item Value Reference Range Interpretation Comments UA Blood (test code = Negative (08/24/14 1:24 UA Blood) PM) [facility] AND [id number] 19:24:00 Test Item Value Reference Range Interpretation Comments UA Bili (test code = Negative *NA*(08/24/14 UA Bili) 1:24 PM) [facility] AND [id number] 19:24:00 Test Item Value Reference Range Interpretation Comments UA Color (test code = Yellow *NA*(08/24/14 UA Color) 1:24 PM) [facility] AND [id number] 19:24:00 Test Item Value Reference Range Interpretation Comments UA Glucose (test code Negative (08/24/14 1:24 = UA Glucose) PM) [facility] AND [id number] 19:24:00 Test Item Value Reference Range Interpretation Comments UA Protein (test code Negative (08/24/14 1:24 = UA Protein) PM) [facility] AND [id number] 19:24:00 Test Item Value Reference Range Interpretation Comments UA pH (test code = UA pH) 6.0 1 5.0-8.0 [facility] AND [id number] 19:24:00 Test Item Value Reference Range Interpretation Comments UA Spec Grav (test code *NA*(08/24/14 1:24 PM) = UA Spec Grav) [facility] [id number] 19:24:00 Test Item Value Reference Range Interpretation Comments UA Turbidity (test code = Clear (08/24/14 1:24 UA Turbidity) PM) [facility] [id number] 19:24:00 Test Item Value Reference Range Interpretation Comments Lipase Lvl (test code = Lipase Lvl) 104 73-393 [facility]ann[facility] [id number] 19:24:00 Test Item Value Reference Range Interpretation Comments eGFR (test code = eGFR) 109 [facility] [id number] 19:24:00 Test Item Value Reference Range Interpretation Comments Bili Total (test code = Bili Total) 0.6 0.2-1.3 [facility]2015-01-12 19:24:00 Test Item Value Reference Range Interpretation Comments Alk Phos (test code = Alk Phos) 72 39-136 [facility] [id number] 19:24:00 Test Item Value Reference Range Interpretation Comments Calcium Lvl (test code = Calcium Lvl) 8.8 8.5-10.5 [facility]2015-01-12 19:24:00 Test Item Value Reference Range Interpretation Comments CO2 (test code = CO2) 28 24-32 [facility]2015-01-12 19:24:00 Test Item Value Reference Range Interpretation Comments Chloride Lvl (test code = Chloride Lvl) 107 95-109 [facility]2015-01-12 19:24:00 Test Item Value Reference Range Interpretation Comments Potassium Lvl (test code = Potassium 3.9 3.5-5.1 Lvl) [facility]2015-01-12 19:24:00 Test Item Value Reference Range Interpretation Comments Glucose Lvl (test code = Glucose Lvl) 90 70-99 [facility]2015-01-12 19:24:00 Test Item Value Reference Range Interpretation Comments Sodium Lvl (test code = Sodium Lvl) 138 135-145 [facility]2015-01-12 19:24:00 Test Item Value Reference Range Interpretation Comments BUN (test code = BUN) 7 7-22 [facility]2015-01-12 19:24:00 Test Item Value Reference Range Interpretation Comments Creatinine Lvl (test code = Creatinine 0.7 0.5-1.4 Lvl) [facility]2015-01-12 19:24:00 Test Item Value Reference Range Interpretation Comments ALT (test code = ALT) 23 See_Comment [Auto mated message] The system which ge nerated this result transmit gaye reference range : <=65. The reference range was not used to interpr et this result as satish l/abnormal. [facility]2015-01-12 19:24:00 Test Item Value Reference Range Interpretation Comments AST (test code = AST) 12 See_Comment [Auto mated message] The system which ge nerated this result transmit gaye reference range : <=37. The reference range was not used to interpr et this result as satish l/abnormal. [facility]2015-01-12 19:24:00 Test Item Value Reference Range Interpretation Comments Albumin Lvl (test code = Albumin Lvl) 3.8 3.5-5.0 [facility]2015-01-12 19:24:00 Test Item Value Reference Range Interpretation Comments Total Protein (test code = Total 8.0 6.4-8.4 Protein) [facility]2015-01-12 19:24:00 Test Item Value Reference Range Interpretation Comments A/G Ratio (test code = A/G Ratio) 0.9 0.7-1.6 [facility]2015-01-12 19:24:00 Test Item Value Reference Range Interpretation Comments AGAP (test code = AGAP) 6.9 10.0-20.0 [facility]2015-01-12 19:24:00 Test Item Value Reference Range Interpretation Comments B/C Ratio (test code = B/C Ratio) 10 6-25 [facility]2015-01-12 19:24:00 Test Item Value Reference Range Interpretation Comments Globulin (test code = Globulin) 4.2 2.0-4.0 [facility]ETHTPSM0906[facility]-73 19:24:00 Test Item Value Reference Range Interpretation Comments S Preg (test code = S Negative *NA*(08/24/14 Preg) 1:24 PM) [facility] WorthTlshyvcVVNVBFFGVD1737-55-12 19:24:00 Test Item Value Reference Range Interpretation Comments WBC (test code = WBC) 11.3 3.7-10.4 [facility] WorthCybavlsBFZQCLPVGM2105-55-67 19:24:00 Test Item Value Reference Range Interpretation Comments RBC (test code = RBC) 4.75 4.20-5.40 [facility] WorthEepqoliOOOKDIWYJM3883-35-45 19:24:00 Test Item Value Reference Range Interpretation Comments Platelet (test code = Platelet) 402 133-450 [facility] WorthZqakbkqDRRZPWNJTR2555-68-13 19:24:00 Test Item Value Reference Range Interpretation Comments MCV (test code = MCV) 89.9 80.0-98.0 [facility] WorthJzotxysNRENBPRPYP1094-28-70 19:24:00 Test Item Value Reference Range Interpretation Comments Hct (test code = Hct) 42.7 36.0-48.0 [facility] WorthRwpjocbAUHYVCTIBG8698-53-13 19:24:00 Test Item Value Reference Range Interpretation Comments Hgb (test code = Hgb) 14.5 12.0-16.0 [facility] WorthMsbqzweXAOIBEEYXF4148-71-48 19:24:00 Test Item Value Reference Range Interpretation Comments RDW (test code = RDW) 13.5 11.5-14.5 [facility] WorthKrfnmxdDNXAGLTGQO6859-94-44 19:24:00 Test Item Value Reference Range Interpretation Comments MCHC (test code = MCHC) 34.0 32.0-36.0 [facility] WorthNnmhlxcBXCFWWLHMU5316-79-51 19:24:00 Test Item Value Reference Range Interpretation Comments MCH (test code = MCH) 30.6 pg 27.0-31.0 [facility] WorthZhtqrrlYJHIOGWYYA0858-74-30 19:24:00 Test Item Value Reference Range Interpretation Comments MPV (test code = MPV) 8.1 7.4-10.4 [facility] WorthVkygvjhQYDRJCTFLI2446-09-00 19:24:00 Test Item Value Reference Range Interpretation Comments Stomatocyte (test code = Stomatocyte) Slight [facility] WorthGichyzqIIMWEPPCUQ3394-06-36 19:24:00 Test Item Value Reference Range Interpretation Comments Basophils # (test code 0.1 See_Comment [Aut omated message] The = Basophils #) system which generated this result tra nsmitted reference range : <=0.2. The reference r ozzy was not used to int erpret this result as normal/abnormal . [facility] WorthDdwglmbABOFEOHDNQ9115-54-47 19:24:00 Test Item Value Reference Range Interpretation Comments Eosinophils # (test code 0.2 See_Comment [A utomated message] The = Eosinophils #) system whic h generated this result tra nsmitted reference range : <=0.5. The reference r ozzy was not used to int erpret this result as normal/abnormal . [facility] WorthVzalxnjVAHNSDNDYD9305-70-88 19:24:00 Test Item Value Reference Range Interpretation Comments Hypochrom (test code = 1+ (08/24/14 1:24 PM) Hypochrom) [facility] WorthRwzxpylVMIGDUIGZE1730-90-68 19:24:00 Test Item Value Reference Range Interpretation Comments Lymphocytes # (test code = Lymphocytes 2.8 1.0-5.5 #) [facility] WorthMbmspkzZNVRJPUYNX6318-65-78 19:24:00 Test Item Value Reference Range Interpretation Comments Segs-Bands # (test code = Segs-Bands #) 8.1 1.5-8.1 [facility] WorthMqsxmvbXNDASSDQQV1368-43-29 19:24:00 Test Item Value Reference Range Interpretation Comments Monocytes # (test code 0.2 See_Comment [Aut omated message] The = Monocytes #) system which generated this result tra nsmitted reference range : <=0.8. The reference r ozzy was not used to int erpret this result as normal/abnormal . [facility] WorthCntoomiXVNODGAAXR6447-58-96 19:24:00 Test Item Value Reference Range Interpretation Comments Lymphocytes (test code = Lymphocytes) 24.5 20.0-40.0 [facility] WorthUgxtymgWSREYSFXYH8509-33-23 19:24:00 Test Item Value Reference Range Interpretation Comments Segs (test code = Segs) 71.8 45.0-75.0 [facility] WorthGncpeklQWGYPDFRXX1834-77-84 19:24:00 Test Item Value Reference Range Interpretation Comments Basophils (test code = 0.6 See_Comment [Aut omated message] The Basophils) system which ge nerated this result tra nsmitted reference range : <=1.0. The reference r ozzy was not used to int erpret this result as normal/abnormal . [facility] WorthGhdqznpBQFEBLUNAJ8328-09-00 19:24:00 Test Item Value Reference Range Interpretation Comments Monocytes (test code = Monocytes) 1.5 2.0-12.0 [facility] WorthKzkltoaDFUDJFQUBG1896-48-39 19:24:00 Test Item Value Reference Range Interpretation Comments Eosinophils (test code = 1.6 See_Comment [A utomated message] The Eosinophils) system which ge nerated this result tra nsmitted reference range : <=4.0. The reference r ozzy was not used to int erpret this result as normal/abnormal . [facility] WorthSxvkhukIHCGXUMDIH1137-22-60 19:24:00 Test Item Value Reference Range Interpretation Comments Plt Morph (test code = Normal (08/24/14 1:24 Plt Morph) PM) [facility] AND [id number] 19:24:00 Test Item Value Reference Range Interpretation Comments UA Sq Epi (test code = UA Sq Occasional /LPF Epi) [facility] AND [id number] 19:24:00 Test Item Value Reference Range Interpretation Comments UA Bacteria (test code = UA Occasional /HPF Bacteria) [facility] AND [id number] 19:24:00 Test Item Value Reference Range Interpretation Comments UA Mucus (test code = None Seen (08/24/14 UA Mucus) 1:24 PM) [facility] AND [id number] 19:24:00 Test Item Value Reference Range Interpretation Comments UA WBC (test code = UA WBC) 0-2 /HPF [facility] AND [id number] 19:24:00 Test Item Value Reference Range Interpretation Comments UA RBC (test code = 0-2 /HPF See_Comment [Automa gaye message] The UA RBC) system which ge nerated this result tra nsmitted reference range : <=2. The reference range was not used to interpr et this result as satish l/abnormal. [facility] AND [id number] 19:24:00 Test Item Value Reference Range Interpretation Comments UA Leuk Est (test Moderate *ABN*(08/24/14 code = UA Leuk Est) 1:24 PM) [facility] AND [id number] 19:24:00 Test Item Value Reference Range Interpretation Comments UA Nitrite (test code Negative (08/24/14 1:24 = UA Nitrite) PM) [facility] AND [id number] 19:24:00 Test Item Value Reference Range Interpretation Comments UA Urobilinogen (test code = UA 0.2 0.1-1.0 Urobilinogen) [facility] AND [id number] 19:24:00 Test Item Value Reference Range Interpretation Comments UA Ketones (test code Negative *NA*(08/24/14 = UA Ketones) 1:24 PM) [facility] AND [id number] 19:24:00 Test Item Value Reference Range Interpretation Comments UA Blood (test code = Negative (08/24/14 1:24 UA Blood) PM) [facility] AND [id number] 19:24:00 Test Item Value Reference Range Interpretation Comments UA Bili (test code = Negative *NA*(08/24/14 UA Bili) 1:24 PM) [facility] AND [id number] 19:24:00 Test Item Value Reference Range Interpretation Comments UA Color (test code = Yellow *NA*(08/24/14 UA Color) 1:24 PM) [facility] AND [id number] 19:24:00 Test Item Value Reference Range Interpretation Comments UA Glucose (test code Negative (08/24/14 1:24 = UA Glucose) PM) [facility] AND [id number] 19:24:00 Test Item Value Reference Range Interpretation Comments UA Protein (test code Negative (08/24/14 1:24 = UA Protein) PM) [facility] AND [id number] 19:24:00 Test Item Value Reference Range Interpretation Comments UA pH (test code = UA pH) 6.0 1 5.0-8.0 [facility] AND [id number] 19:24:00 Test Item Value Reference Range Interpretation Comments UA Spec Grav (test code *NA*(08/24/14 1:24 PM) = UA Spec Grav) [facility] AND [id number] 19:24:00 Test Item Value Reference Range Interpretation Comments UA Turbidity (test code = Clear (08/24/14 1:24 UA Turbidity) PM) [facility]2015-01-12 19:24:00 Test Item Value Reference Range Interpretation Comments Lipase Lvl (test code = Lipase Lvl) 104 73-393 [facility]2015-01-12 19:24:00 Test Item Value Reference Range Interpretation Comments eGFR (test code = eGFR) 109 [facility]2015-01-12 19:24:00 Test Item Value Reference Range Interpretation Comments Bili Total (test code = Bili Total) 0.6 0.2-1.3 [facility]2015-01-12 19:24:00 Test Item Value Reference Range Interpretation Comments Alk Phos (test code = Alk Phos) 72 39-136 [facility]2015-01-12 19:24:00 Test Item Value Reference Range Interpretation Comments Calcium Lvl (test code = Calcium Lvl) 8.8 8.5-10.5 [facility]2015-01-12 19:24:00 Test Item Value Reference Range Interpretation Comments CO2 (test code = CO2) 28 24-32 [facility]2015-01-12 19:24:00 Test Item Value Reference Range Interpretation Comments Chloride Lvl (test code = Chloride Lvl) 107 95-109 [facility]2015-01-12 19:24:00 Test Item Value Reference Range Interpretation Comments Potassium Lvl (test code = Potassium 3.9 3.5-5.1 Lvl) [facility]2015-01-12 19:24:00 Test Item Value Reference Range Interpretation Comments Glucose Lvl (test code = Glucose Lvl) 90 70-99 [place] [id number] 19:24:00 Test Item Value Reference Range Interpretation Comments Sodium Lvl (test code = Sodium Lvl) 138 135-145 [facility]2015-01-12 19:24:00 Test Item Value Reference Range Interpretation Comments BUN (test code = BUN) 7 7-22 [facility]2015-01-12 19:24:00 Test Item Value Reference Range Interpretation Comments Creatinine Lvl (test code = Creatinine 0.7 0.5-1.4 Lvl) [facility]2015-01-12 19:24:00 Test Item Value Reference Range Interpretation Comments ALT (test code = ALT) 23 See_Comment [Auto mated message] The system which ge nerated this result transmit gaye reference range : <=65. The reference range was not used to interpr et this result as satish l/abnormal. [facility]2015-01-12 19:24:00 Test Item Value Reference Range Interpretation Comments AST (test code = AST) 12 See_Comment [Auto mated message] The system which ge nerated this result transmit gaye reference range : <=37. The reference range was not used to interpr et this result as satish l/abnormal. [facility]2015-01-12 19:24:00 Test Item Value Reference Range Interpretation Comments Albumin Lvl (test code = Albumin Lvl) 3.8 3.5-5.0 [facility]2015-01-12 19:24:00 Test Item Value Reference Range Interpretation Comments Total Protein (test code = Total 8.0 6.4-8.4 Protein) [facility]2015-01-12 19:24:00 Test Item Value Reference Range Interpretation Comments A/G Ratio (test code = A/G Ratio) 0.9 0.7-1.6 [place] [id number] 19:24:00 Test Item Value Reference Range Interpretation Comments AGAP (test code = AGAP) 6.9 10.0-20.0 [facility] [id number] 19:24:00 Test Item Value Reference Range Interpretation Comments B/C Ratio (test code = B/C Ratio) 10 6-25 [facility] [id number] 19:24:00 Test Item Value Reference Range Interpretation Comments Globulin (test code = Globulin) 4.2 2.0-4.0 [facility]3047[facility]74 19:24:00 Test Item Value Reference Range Interpretation Comments S Preg (test code = S Negative *NA*(08/24/14 Preg) 1:24 PM) [facility]BaigswsUEQABMIULM4500-05-29 19:24:00 Test Item Value Reference Range Interpretation Comments WBC (test code = WBC) 11.3 3.7-10.4 [facility] WorthKiotwliSKNHOWNPYE7853-39-24 19:24:00 Test Item Value Reference Range Interpretation Comments RBC (test code = RBC) 4.75 4.20-5.40 [facility] WorthInwpthcQVFCNNFJFQ3074-20-50 19:24:00 Test Item Value Reference Range Interpretation Comments Platelet (test code = Platelet) 402 133-450 [facility] WorthParwhtbADZTMERGHW8027-66-25 19:24:00 Test Item Value Reference Range Interpretation Comments MCV (test code = MCV) 89.9 80.0-98.0 [facility] WorthSecwmczPBYXQVJLIG2724-89-45 19:24:00 Test Item Value Reference Range Interpretation Comments Hct (test code = Hct) 42.7 36.0-48.0 [facility] WorthAqepcnpLLHOMKZWBH3075-60-15 19:24:00 Test Item Value Reference Range Interpretation Comments Hgb (test code = Hgb) 14.5 12.0-16.0 [facility] WorthNrbkkoxABHJVDYUYZ2113-77-54 19:24:00 Test Item Value Reference Range Interpretation Comments RDW (test code = RDW) 13.5 11.5-14.5 [facility] WorthAjjwrpiDYCLHQFWMU8411-97-62 19:24:00 Test Item Value Reference Range Interpretation Comments MCHC (test code = MCHC) 34.0 32.0-36.0 [facility] WorthTigjgqrVUTHSWEUMA8046-59-64 19:24:00 Test Item Value Reference Range Interpretation Comments MCH (test code = MCH) 30.6 pg 27.0-31.0 [facility] WorthWhoigfhZBTLYGVOVP2277-11-71 19:24:00 Test Item Value Reference Range Interpretation Comments MPV (test code = MPV) 8.1 7.4-10.4 [facility] WorthBwndbcnKFLDUABQPB3837-07-85 19:24:00 Test Item Value Reference Range Interpretation Comments Stomatocyte (test code = Stomatocyte) Slight [facility] WorthKhearzpFFMTZNWIMJ9768-27-31 19:24:00 Test Item Value Reference Range Interpretation Comments Basophils # (test code 0.1 See_Comment [Aut omated message] The = Basophils #) system which generated this result tra nsmitted reference range : <=0.2. The reference r ozzy was not used to int erpret this result as normal/abnormal . [facility] WorthJtecxvnKIIETPNIEC1192-86-92 19:24:00 Test Item Value Reference Range Interpretation Comments Eosinophils # (test code 0.2 See_Comment [A utomated message] The = Eosinophils #) system whic h generated this result tra nsmitted reference range : <=0.5. The reference r ozzy was not used to int erpret this result as normal/abnormal . [facility] WorthBlusuboENOOPLSKRS6351-40-40 19:24:00 Test Item Value Reference Range Interpretation Comments Hypochrom (test code = 1+ (08/24/14 1:24 PM) Hypochrom) [facility] WorthOyruyzxALCCOFASNG9952-24-18 19:24:00 Test Item Value Reference Range Interpretation Comments Lymphocytes # (test code = Lymphocytes 2.8 1.0-5.5 #) [facility] WorthNhskyqbADSNCKUJIP2960-30-98 19:24:00 Test Item Value Reference Range Interpretation Comments Segs-Bands # (test code = Segs-Bands #) 8.1 1.5-8.1 [facility] WorthQzfnrytVMBBALFLRP5358-35-81 19:24:00 Test Item Value Reference Range Interpretation Comments Monocytes # (test code 0.2 See_Comment [Aut omated message] The = Monocytes #) system which generated this result tra nsmitted reference range : <=0.8. The reference r ozzy was not used to int erpret this result as normal/abnormal . [facility] WorthImfkszsLNBVAHJHRW7683-82-98 19:24:00 Test Item Value Reference Range Interpretation Comments Lymphocytes (test code = Lymphocytes) 24.5 20.0-40.0 [place] [id number] 19:24:00 Test Item Value Reference Range Interpretation Comments Segs (test code = Segs) 71.8 45.0-75.0 [facility] WorthGpgkbwiNITNRCWIVG4308-43-77 19:24:00 Test Item Value Reference Range Interpretation Comments Basophils (test code = 0.6 See_Comment [Aut omated message] The Basophils) system which ge nerated this result tra nsmitted reference range : <=1.0. The reference r ozzy was not used to int erpret this result as normal/abnormal . [facility] WorthFqodtcqVCVEDIYFBY9762-13-39 19:24:00 Test Item Value Reference Range Interpretation Comments Monocytes (test code = Monocytes) 1.5 2.0-12.0 [facility] WorthSihxhefJEDYJEMYVV8967-12-95 19:24:00 Test Item Value Reference Range Interpretation Comments Eosinophils (test code = 1.6 See_Comment [A utomated message] The Eosinophils) system which ge nerated this result tra nsmitted reference range : <=4.0. The reference r ozzy was not used to int erpret this result as normal/abnormal . [facility] WorthUggslsbWKUBFXIUXE4272-75-82 19:24:00 Test Item Value Reference Range Interpretation Comments Plt Morph (test code = Normal (08/24/14 1:24 Plt Morph) PM) [facility] [id number] 19:24:00 Test Item Value Reference Range Interpretation Comments UA Sq Epi (test code = UA Sq Occasional /LPF Epi) [facility] [id number] 19:24:00 Test Item Value Reference Range Interpretation Comments UA Bacteria (test code = UA Occasional /HPF Bacteria) [facility] [id number] 19:24:00 Test Item Value Reference Range Interpretation Comments UA Mucus (test code = None Seen (08/24/14 UA Mucus) 1:24 PM) [facility] AND [id number] 19:24:00 Test Item Value Reference Range Interpretation Comments UA WBC (test code = UA WBC) 0-2 /HPF [facility] [id number] 19:24:00 Test Item Value Reference Range Interpretation Comments UA RBC (test code = 0-2 /HPF See_Comment [Automa gaye message] The UA RBC) system which ge nerated this result tra nsmitted reference range : <=2. The reference range was not used to interpr et this result as satish l/abnormal. [facility] AND [id number] 19:24:00 Test Item Value Reference Range Interpretation Comments UA Leuk Est (test Moderate *ABN*(08/24/14 code = UA Leuk Est) 1:24 PM) [facility] AND [id number] 19:24:00 Test Item Value Reference Range Interpretation Comments UA Nitrite (test code Negative (08/24/14 1:24 = UA Nitrite) PM) [facility] AND [id number] 19:24:00 Test Item Value Reference Range Interpretation Comments UA Urobilinogen (test code = UA 0.2 0.1-1.0 Urobilinogen) [facility] [id number] 19:24:00 Test Item Value Reference Range Interpretation Comments UA Ketones (test code Negative *NA*(08/24/14 = UA Ketones) 1:24 PM) [facility] [id number] 19:24:00 Test Item Value Reference Range Interpretation Comments UA Blood (test code = Negative (08/24/14 1:24 UA Blood) PM) [facility] [id number] 19:24:00 Test Item Value Reference Range Interpretation Comments UA Bili (test code = Negative *NA*(08/24/14 UA Bili) 1:24 PM) [facility] [id number] 19:24:00 Test Item Value Reference Range Interpretation Comments UA Color (test code = Yellow *NA*(08/24/14 UA Color) 1:24 PM) [facility] [id number] 19:24:00 Test Item Value Reference Range Interpretation Comments UA Glucose (test code Negative (08/24/14 1:24 = UA Glucose) PM) [facility] AND [id number] 19:24:00 Test Item Value Reference Range Interpretation Comments UA Protein (test code Negative (08/24/14 1:24 = UA Protein) PM) [facility] AND [id number] 19:24:00 Test Item Value Reference Range Interpretation Comments UA pH (test code = UA pH) 6.0 1 5.0-8.0 [facility] [id number] 19:24:00 Test Item Value Reference Range Interpretation Comments UA Spec Grav (test code *NA*(08/24/14 1:24 PM) = UA Spec Grav) [facility] [id number] 19:24:00 Test Item Value Reference Range Interpretation Comments UA Turbidity (test code = Clear (08/24/14 1:24 UA Turbidity) PM) [facility]2015-01-12 19:24:00 Test Item Value Reference Range Interpretation Comments Lipase Lvl (test code = Lipase Lvl) 104 73-393 [facility]2015-01-12 19:24:00 Test Item Value Reference Range Interpretation Comments eGFR (test code = eGFR) 109 [facility]2015-01-12 19:24:00 Test Item Value Reference Range Interpretation Comments Bili Total (test code = Bili Total) 0.6 0.2-1.3 [facility]2015-01-12 19:24:00 Test Item Value Reference Range Interpretation Comments Alk Phos (test code = Alk Phos) 72 39-136 [facility]2015-01-12 19:24:00 Test Item Value Reference Range Interpretation Comments Calcium Lvl (test code = Calcium Lvl) 8.8 8.5-10.5 [facility]2015-01-12 19:24:00 Test Item Value Reference Range Interpretation Comments CO2 (test code = CO2) 28 24-32 [facility]2015-01-12 19:24:00 Test Item Value Reference Range Interpretation Comments Chloride Lvl (test code = Chloride Lvl) 107 95-109 [facility]2015-01-12 19:24:00 Test Item Value Reference Range Interpretation Comments Potassium Lvl (test code = Potassium 3.9 3.5-5.1 Lvl) [facility]2015-01-12 19:24:00 Test Item Value Reference Range Interpretation Comments Glucose Lvl (test code = Glucose Lvl) 90 70-99 [facility]2015-01-12 19:24:00 Test Item Value Reference Range Interpretation Comments Sodium Lvl (test code = Sodium Lvl) 138 135-145 [facility]2015-01-12 19:24:00 Test Item Value Reference Range Interpretation Comments BUN (test code = BUN) 7 7-22 [facility]2015-01-12 19:24:00 Test Item Value Reference Range Interpretation Comments Creatinine Lvl (test code = Creatinine 0.7 0.5-1.4 Lvl) [facility]2015-01-12 19:24:00 Test Item Value Reference Range Interpretation Comments ALT (test code = ALT) 23 See_Comment [Auto mated message] The system which ge nerated this result transmit gaye reference range : <=65. The reference range was not used to interpr et this result as satish l/abnormal. [facility]2015-01-12 19:24:00 Test Item Value Reference Range Interpretation Comments AST (test code = AST) 12 See_Comment [Auto mated message] The system which ge nerated this result transmit gaye reference range : <=37. The reference range was not used to interpr et this result as satish l/abnormal. [facility]2015-01-12 19:24:00 Test Item Value Reference Range Interpretation Comments Albumin Lvl (test code = Albumin Lvl) 3.8 3.5-5.0 [facility]2015-01-12 19:24:00 Test Item Value Reference Range Interpretation Comments Total Protein (test code = Total 8.0 6.4-8.4 Protein) [facility]2015-01-12 19:24:00 Test Item Value Reference Range Interpretation Comments A/G Ratio (test code = A/G Ratio) 0.9 0.7-1.6 [facility]2015-01-12 19:24:00 Test Item Value Reference Range Interpretation Comments AGAP (test code = AGAP) 6.9 10.0-20.0 [facility]2015-01-12 19:24:00 Test Item Value Reference Range Interpretation Comments B/C Ratio (test code = B/C Ratio) 10 6-25 [facility]2015-01-12 19:24:00 Test Item Value Reference Range Interpretation Comments Globulin (test code = Globulin) 4.2 2.0-4.0 [facility]xbTTPFQDCGKKXPQ2366-[facility]-83 19:24:00 Test Item Value Reference Range Interpretation Comments S Preg (test code = S Negative *NA*(08/24/14 Preg) 1:24 PM) [facility] WorthJvnfxdsVWHQWRSYPM7724-11-08 19:24:00 Test Item Value Reference Range Interpretation Comments WBC (test code = WBC) 11.3 3.7-10.4 [facility] WorthKlsssymBZOMOGDVUL6952-63-64 19:24:00 Test Item Value Reference Range Interpretation Comments RBC (test code = RBC) 4.75 4.20-5.40 [facility] WorthJtueuxjFMLLQPAZLJ3176-45-32 19:24:00 Test Item Value Reference Range Interpretation Comments Platelet (test code = Platelet) 402 133-450 [facility] WorthZtepqenMHKRVULZBT8258-62-96 19:24:00 Test Item Value Reference Range Interpretation Comments MCV (test code = MCV) 89.9 80.0-98.0 [facility] WorthYbpeetyLFTRLWSJIE4838-26-25 19:24:00 Test Item Value Reference Range Interpretation Comments Hct (test code = Hct) 42.7 36.0-48.0 [facility] WorthPqpljwyLDKGMZBDSR3776-78-73 19:24:00 Test Item Value Reference Range Interpretation Comments Hgb (test code = Hgb) 14.5 12.0-16.0 [facility] WorthMpqflwwZNLDOTFWIZ7911-46-49 19:24:00 Test Item Value Reference Range Interpretation Comments RDW (test code = RDW) 13.5 11.5-14.5 [facility] WorthFgfsuyoJYEVLFMBMM2467-40-60 19:24:00 Test Item Value Reference Range Interpretation Comments MCHC (test code = MCHC) 34.0 32.0-36.0 [facility] WorthXekbhvjMIMTUAROEY6679-53-43 19:24:00 Test Item Value Reference Range Interpretation Comments MCH (test code = MCH) 30.6 pg 27.0-31.0 [facility] WorthEebydpyHZYTZDYBGW7546-39-90 19:24:00 Test Item Value Reference Range Interpretation Comments MPV (test code = MPV) 8.1 7.4-10.4 [facility] WorthMebfzgaRTAMUJXKDW8219-23-61 19:24:00 Test Item Value Reference Range Interpretation Comments Stomatocyte (test code = Stomatocyte) Slight [facility] WorthEvmquaaOAVMWLBNNP8059-94-39 19:24:00 Test Item Value Reference Range Interpretation Comments Basophils # (test code 0.1 See_Comment [Aut omated message] The = Basophils #) system which generated this result tra nsmitted reference range : <=0.2. The reference r ozzy was not used to int erpret this result as normal/abnormal . [facility] WorthFfslivtZQAFOXWBNC3792-09-85 19:24:00 Test Item Value Reference Range Interpretation Comments Eosinophils # (test code 0.2 See_Comment [A utomated message] The = Eosinophils #) system whic h generated this result tra nsmitted reference range : <=0.5. The reference r ozzy was not used to int erpret this result as normal/abnormal . [facility] WorthTpnaastQBAGCOXEHN6554-13-23 19:24:00 Test Item Value Reference Range Interpretation Comments Hypochrom (test code = 1+ (08/24/14 1:24 PM) Hypochrom) [facility] WorthElssqxvQAXMHKQTOS4167-59-87 19:24:00 Test Item Value Reference Range Interpretation Comments Lymphocytes # (test code = Lymphocytes 2.8 1.0-5.5 #) [facility] WorthRjchnviLTYNUSGEZD6002-39-46 19:24:00 Test Item Value Reference Range Interpretation Comments Segs-Bands # (test code = Segs-Bands #) 8.1 1.5-8.1 [facility] WorthDqgddccRBVSDQECKJ4158-49-22 19:24:00 Test Item Value Reference Range Interpretation Comments Monocytes # (test code 0.2 See_Comment [Aut omated message] The = Monocytes #) system which generated this result tra nsmitted reference range : <=0.8. The reference r ozzy was not used to int erpret this result as normal/abnormal . [facility] WorthVrpvrjzOXFBLNXDSI0130-72-74 19:24:00 Test Item Value Reference Range Interpretation Comments Lymphocytes (test code = Lymphocytes) 24.5 20.0-40.0 [facility] WorthQxdeyfzVODPJWOMBJ1700-84-28 19:24:00 Test Item Value Reference Range Interpretation Comments Segs (test code = Segs) 71.8 45.0-75.0 [facility] WorthBglhsewGJMXNPSOXB8750-03-15 19:24:00 Test Item Value Reference Range Interpretation Comments Basophils (test code = 0.6 See_Comment [Aut omated message] The Basophils) system which ge nerated this result tra nsmitted reference range : <=1.0. The reference r ozzy was not used to int erpret this result as normal/abnormal . [facility] WorthPjcdalgTXUSZDCLHX0597-97-41 19:24:00 Test Item Value Reference Range Interpretation Comments Monocytes (test code = Monocytes) 1.5 2.0-12.0 [facility] WorthYwkyqdpHVJTGVMKHA3390-01-12 19:24:00 Test Item Value Reference Range Interpretation Comments Eosinophils (test code = 1.6 See_Comment [A utomated message] The Eosinophils) system which ge nerated this result tra nsmitted reference range : <=4.0. The reference r ozzy was not used to int erpret this result as normal/abnormal . [facility] [id number] 19:24:00 Test Item Value Reference Range Interpretation Comments Plt Morph (test code = Normal (08/24/14 1:24 Plt Morph) PM) [facility] AND [id number] 19:24:00 Test Item Value Reference Range Interpretation Comments UA Sq Epi (test code = UA Sq Occasional /LPF Epi) [facility] AND [id number] 19:24:00 Test Item Value Reference Range Interpretation Comments UA Bacteria (test code = UA Occasional /HPF Bacteria) [facility] AND [id number] 19:24:00 Test Item Value Reference Range Interpretation Comments UA Mucus (test code = None Seen (08/24/14 UA Mucus) 1:24 PM) [facility] AND [id number] 19:24:00 Test Item Value Reference Range Interpretation Comments UA WBC (test code = UA WBC) 0-2 /HPF [facility] AND [id number] 19:24:00 Test Item Value Reference Range Interpretation Comments UA RBC (test code = 0-2 /HPF See_Comment [Automa gaye message] The UA RBC) system which ge nerated this result tra nsmitted reference range : <=2. The reference range was not used to interpr et this result as satish l/abnormal. [facility] AND [id number] 19:24:00 Test Item Value Reference Range Interpretation Comments UA Leuk Est (test Moderate *ABN*(08/24/14 code = UA Leuk Est) 1:24 PM) [facility] AND [id number] 19:24:00 Test Item Value Reference Range Interpretation Comments UA Nitrite (test code Negative (08/24/14 1:24 = UA Nitrite) PM) [facility] AND [id number] 19:24:00 Test Item Value Reference Range Interpretation Comments UA Urobilinogen (test code = UA 0.2 0.1-1.0 Urobilinogen) [facility] AND [id number] 19:24:00 Test Item Value Reference Range Interpretation Comments UA Ketones (test code Negative *NA*(08/24/14 = UA Ketones) 1:24 PM) [facility] AND [id number] 19:24:00 Test Item Value Reference Range Interpretation Comments UA Blood (test code = Negative (08/24/14 1:24 UA Blood) PM) [facility] AND [id number] 19:24:00 Test Item Value Reference Range Interpretation Comments UA Bili (test code = Negative *NA*(08/24/14 UA Bili) 1:24 PM) [facility] AND [id number] 19:24:00 Test Item Value Reference Range Interpretation Comments UA Color (test code = Yellow *NA*(08/24/14 UA Color) 1:24 PM) [facility] AND [id number] 19:24:00 Test Item Value Reference Range Interpretation Comments UA Glucose (test code Negative (08/24/14 1:24 = UA Glucose) PM) [facility] AND [id number] 19:24:00 Test Item Value Reference Range Interpretation Comments UA Protein (test code Negative (08/24/14 1:24 = UA Protein) PM) [facility] AND [id number] 19:24:00 Test Item Value Reference Range Interpretation Comments UA pH (test code = UA pH) 6.0 1 5.0-8.0 [facility] AND [id number] 19:24:00 Test Item Value Reference Range Interpretation Comments UA Spec Grav (test code *NA*(08/24/14 1:24 PM) = UA Spec Grav) [facility] AND [id number] 19:24:00 Test Item Value Reference Range Interpretation Comments UA Turbidity (test code = Clear (08/24/14 1:24 UA Turbidity) PM) [facility]
[2022-12-12 18:10] LABS: Absolute Lymphocytes (CBC) 3.3 K/uL (0.7-4.9); Hematocrit 42.5 % (36.0-45.0); Lymphocytes % 33.4 % (15.3-44.8); MPV 8.8 fL (7.6-11.3); RBC Red Blood Cell Count 4.78 M/uL (3.86-4.86)
[2022-12-12] MEDS ORDERED: MORPHINE 4 MG/ML SYR ONE (18:24)
[2022-12-12] MEDS ORDERED: NA CHLORIDE 0.9% 1,000 ML ONE (18:24)
[2022-12-12] MEDS ORDERED: ONDANSETRON 4 MG/2 ML VIAL ONE (18:24)
--- NOTE | 2022-12-12 18:26 | RAD REPORT ---
EXAM DESCRIPTION: CTAbdomen Pelvis Wo Contrast - 12/12/2022 6:02 pm CLINICAL HISTORY: ABD PAIN COMPARISON: <Comparisons> TECHNIQUE: CT of the abdomen and pelvis was performed. All CT scans are performed using dose optimization technique as appropriate and may include automated exposure control or mA/KV adjustment according to patient size. FINDINGS: Lower chest: No acute abnormality. Liver: No acute abnormality or suspicious lesions. Biliary: No biliary ductal dilatation. Cholecystectomy Stomach: No significant focal abnormality. Duodenum: No significant focal abnormality. Pancreas: No significant abnormality. Spleen: No significant abnormality. Adrenal: No suspicious lesions. Kidney/ureter: No hydronephrosis. No renal calculi. Retroperitoneum: No retroperitoneal adenopathy. Vascular: No aneurysm. Bowel: Mild wall thickening at the ascending colon and proximal transverse colon.. No appendix identi fied. No secondary signs of acute appendicitis. Peritoneum: No ascites or free air. Bladder: Grossly unremarkable. Reproductive: No adnexal masses. IUD Bones: No acute fracture. Other: n/a IMPRESSION: Mild wall thickening at the ascending and proximal transverse colon could reflect a mild colitis. No other acute process identified.
[2022-12-12 18:28] LABS: Specific Gravity < 1.005 (1.005-1.030)
[2022-12-12 18:34] LABS: Specific Gravity 1.005 (1.005-1.030); Urine Bacteria <20 /HPF (<20); Urine Bilirubin NEGATIVE (Negative); Urine Blood Negative (Negative); Urine Clarity Clear (Clear); Urine Color Colorless (Yellow); Urine Glucose NEGATIVE (Negative); Urine Mucus Slight /HPF (None Seen); Urine Protein NEGATIVE (Negative); Urine RBC <5 /HPF (None Seen); Urine Urobilinogen Normal (Normal)
[2022-12-12 18:43] LABS: Albumin 3.6 g/dL (3.4-5.0); Bilirubin Total 0.9 mg/dL (0.2-1.0); Protein, Total 7.3 g/dL (6.4-8.2)
--- NOTE | 2022-12-12 18:52 | ER ---
Nurse's Notes [facility] Name: Shanna Nur Age: 47 yrs Sex: Female : 1975 Arrival Date: 12/12/2022 Time: 17:14 Bed 16 Private MD: Diagnosis: Left sided colitis Presentation: 12/12 17:28 Chief complaint: Patient states: Suprapubic pain xm1 month, LLQ pain with blood in vg1 stool that was noticed today at 1645. was seen at [facility] yesterday for nausea and fever. Coronavirus screen: Vaccine status: Patient reports being unvaccinated. Client denies travel out of the [place] in the last 14 days. Ebola Screen: Patient negative for fever greater than or equal to 101.5 degrees Fahrenheit, and additional compatible Ebola Virus Disease symptoms Patient denies exposure to infectious person. Patient denies travel to an Ebola-affected area in the 21 days before illness onset. Initial Sepsis Screen: Does the patient meet any 2 criteria? HR > 90 bpm. Does the patient have a suspected source of infection? No. Patient's initial sepsis screen is negative. Risk Assessment: Do you want to hurt yourself or someone else? Patient reports no desire to harm self or others. Onset of symptoms was December 12, 2022. 17:28 Method Of Arrival: Ambulatory vg1 17:28 Acuity: JESUS 3 vg1 Triage Assessment: 17:31 General: Appears uncomfortable, Behavior is cooperative. Pain: Complains of pain in vg1 right lower quadrant and left lower quadrant Pain currently is 10 out of 10 on a pain scale. GI: Reports bloody stool. Historical: - Allergies: 17:31 Ibuprofen; vg1 17:31 Iodine (Anaphylaxis); vg1 17:31 Latex, Natural Rubber; vg1 17:31 Phenergan; vg1 17:31 SEAFOOD; vg1 17:31 tramadol; vg1 17:31 Ultram; vg1 17:31 Vancomycin; vg1 17:31 Levaquin IV; vg1 17:31 Levaquin; vg1 17:31 Toradol; vg1 - PMHx: 17:31 Atrial fibrillation; Seizure; TBI; vg1 - PSHx: 17:31 Adenoid excision; Appendectomy; Cholecystectomy; L knee SX; Tonsillectomy; tubal vg1 ligation; - Immunization history:: Client reports having NOT received the Covid vaccine. - Social history:: Smoking status: Patient denies any tobacco usage or history of. Screenin:34 [facility] ED Fall Risk Assessment (Adult) History of falling in the last 3 months, ph including since admission No falls in past 3 months (0 pts) Confusion or Disorientation No (0 pts) Intoxicated or Sedated No (0 pts) Impaired Gait No (0 pts) Mobility Assist Device Used No (0 pt) Altered Elimination No (0 pt) Score/Fall Risk Level 0 - 2 = Low Risk Oriented to surroundings, Maintained a safe environment, Hourly rounding (assess needs \\T\\ fall precautionary measures) done. Abuse screen: Denies threats or abuse. Denies injuries from another. Nutritional screening: No deficits noted. Tuberculosis screening: No symptoms or risk factors identified. Assessment: 18:34 General: Appears in no apparent distress. uncomfortable, Behavior is calm, cooperative, ph appropriate for age. Pain: Complains of pain in left lower quadrant and right lower quadrant. Neuro: Level of Consciousness is awake, alert, obeys commands, Oriented to person, place, time, situation. Cardiovascular: Capillary refill < 3 seconds in bilateral fingers Patient's skin is warm and dry. Respiratory: Airway is patent Respiratory effort is even, unlabored. GI: Reports lower abdominal pain, bloody stool, nausea. Derm: Skin is pink, warm \\T\\ dry. 19:36 Reassessment: Patient appears in no apparent distress at this time. Patient and/or aa9 family updated on plan of care and expected duration. Pain level reassessed. Patient is alert, oriented x 3, equal unlabored respirations, skin warm/dry/pink. pt requested another pain medication prescription, stated "Morphine works for my pain, I got this Bentyl last time and it didn't work, morphine did the trick." pt educated morphine is not given as a prescription for pain. notified Funmi MCDUFFIE, instructed to notify patient to take Advil for pain. patient understands. educated patient antibiotic will clear infection and pain as well, denies concerns. Vital Signs: 17:28 BP 123 / 67; Pulse 100; Resp 16; Temp 98.2(O); Pulse Ox 100% on R/A; Weight 68.04 kg; vg1 Height 5 ft. 3 in. ; Pain 10/10; 18:35 BP 118 / 68; Pulse 87; Resp 18; Temp 98; Pulse Ox 99% on R/A; ph 17:28 Body Mass Index 26.57 (68.04 kg, 160.02 cm) vg1 17:28 Pain Scale: Adult vg1 ED Course: 17:15 Patient arrived in ED. am2 17:17 Ir[facility] Foy [facility]-C [facility]. kb 17:17 Leo Diop MD is Attending Physician. kb 17:31 Triage completed. vg1 17:31 Arm band placed on. vg1 18:04 CT Abd/Pelvis - Without Contrast In Process Unspecified. EDMS 18:10 Genoveva Mccain, RN is Primary Nurse. ph 18:27 Inserted saline lock: 22 gauge in right hand, using aseptic technique. Blood collected. ph 18:35 Patient has correct armband on for positive identification. Bed in low position. Call ph light in reach. Side rails up X 1. Pulse ox on. NIBP on. 18:35 No provider procedures requiring assistance completed. ph 19:39 IV discontinued, intact, bleeding controlled, No redness/swelling at site. Pressure aa9 dressing applied. Administered Medications: 18:33 Drug: NS 0.9% IV 1000 ml Route: IV; Rate: 1 bolus; Site: right hand; ph 19:51 Follow up: IV Status: Completed infusion ph 18:33 Drug: Ondansetron IVP 4 mg Route: IVP; Site: right antecubital; ph 19:51 Follow up: Response: No adverse reaction ph 18:33 Drug: morphine IVP or IV 4 mg Route: IVP; Infused Over: 4 mins; Site: right hand; ph 19:51 Follow up: Response: No adverse reaction ph 19:29 Drug: Amoxicillin-Clavulanate PO 875 mg Route: PO; aa9 Medication: 18:35 VIS not applicable for this client. ph Outcome: 18:51 Discharge ordered by . kb 19:38 Discharged to home ambulatory. aa9 19:38 Condition: stable 19:38 Condition: stable 19:38 Discharge instructions given to patient, Instructed on discharge instructions, follow up and referral plans. Demonstrated understanding of instructions, follow-up care, medications, Prescriptions given X 2. 19:39 Patient left the ED. aa9 Signatures: Dispatcher [employer] Irma Lira, PHYSICAL CHEMISTRY TEACHER-C PHYSICAL CHEMISTRY TEACHER-Genoveva Pascal, RN RN Ryanne Lubin am2 Puja Garcia RN RN vg1 Maricruz Gaston RN RN aa9
--- NOTE | 2022-12-12 18:52 | EDPHYS ---
Physician Documentation [facility] Name: Shanna Nur Age: 47 yrs Sex: Female : 1975 Arrival Date: 12/12/2022 Time: 17:14 Bed 16 Private MD: ED Physician Leo Diop HPI: 12/12 17:44 This 47 yrs old Female presents to ER via Ambulatory with complaints of Bloody Stools, kb Abdominal Pain - LUQ, Pelvic Pain. 17:51 The patient presents with abdominal pain in the left lower quadrant. Onset: The kb symptoms/episode began/occurred at 16:45. The symptoms do not radiate. Associated signs and symptoms: Pertinent positives: blood in stools, nausea. The symptoms are described as constant. Modifying factors: The symptoms are alleviated by nothing, the symptoms are aggravated by nothing. Severity of pain: At its worst the pain was moderate in the emergency department the pain is unchanged. The patient has not experienced similar symptoms in the past. The patient has been recently seen by a physician:. Patient reports suprapubic pain for 1 month. Was seen in [facility] ER on 11/27 and diagnosed the UTI. States the pain has not gotten any better. Was seen again yesterday at [facility] and told that it might be endometriosis. States she had a bowel movement at approximately 4:45 today and noticed bright red blood then developed left lower quadrant pain which prompted her visit to the ER today. Reports nausea.. Historical: - Allergies: 17:31 Ibuprofen; vg1 17:31 Iodine (Anaphylaxis); vg1 17:31 Latex, Natural Rubber; vg1 17:31 Phenergan; vg1 17:31 SEAFOOD; vg1 17:31 tramadol; vg1 17:31 Ultram; vg1 17:31 Vancomycin; vg1 17:31 Levaquin IV; vg1 17:31 Levaquin; vg1 17:31 Toradol; vg1 - PMHx: 17:31 Atrial fibrillation; Seizure; TBI; vg1 - PSHx: 17:31 Adenoid excision; Appendectomy; Cholecystectomy; L knee SX; Tonsillectomy; tubal vg1 ligation; - Immunization history:: Client reports having NOT received the Covid vaccine. - Social history:: Smoking status: Patient denies any tobacco usage or history of. ROS: 17:49 Constitutional: Negative for fever, chills, and weight loss. kb 17:49 Abdomen/GI: Positive for abdominal pain, nausea, rectal bleeding. 17:49 All other systems are negative. Exam: 17:49 Constitutional: This is a well developed, well nourished patient who is awake, alert, kb and in no acute distress. Head/Face: Normocephalic, atraumatic. ENT: Moist Mucous membranes Cardiovascular: Regular rate and rhythm with a normal S1 and S2. No gallops, murmurs, or rubs. No pulse deficits. Respiratory: Respirations even and unlabored. No increased work of breathing. Talking in full sentences Skin: Warm, dry with normal turgor. Normal color. MS/ Extremity: Pulses equal, no cyanosis. Neurovascular intact. Full, normal range of motion. Neuro: Awake and alert, GCS 15, oriented to person, place, time, and situation. Moves all extremities. Normal gait. 17:49 Abdomen/GI: Inspection: abdomen appears normal, Bowel sounds: normal, Palpation: soft, in all quadrants, moderate abdominal tenderness, in the suprapubic area and left lower quadrant. 18:41 Abdomen/GI: Rectal exam: rectal tone normal, Stool: normal, brown, hemorrhoid(s), are kb not appreciated, tenderness, is not appreciated. Vital Signs: 17:28 BP 123 / 67; Pulse 100; Resp 16; Temp 98.2(O); Pulse Ox 100% on R/A; Weight 68.04 kg; vg1 Height 5 ft. 3 in. ; Pain 10/10; 18:35 BP 118 / 68; Pulse 87; Resp 18; Temp 98; Pulse Ox 99% on R/A; ph 17:28 Body Mass Index 26.57 (68.04 kg, 160.02 cm) vg1 17:28 Pain Scale: Adult vg1 MDM: 17:22 Patient medically screened. kb 17:51 Data reviewed: vital signs, nurses notes. kb 17:54 Differential diagnosis: diverticulitis, Endometriosis, GI Bleed, non-specific abd pain, kb urinary tract infection. 18:42 Counseling: I had a detailed discussion with the patient and/or guardian regarding: the kb historical points, exam findings, and any diagnostic results supporting the discharge/admit diagnosis, lab results, radiology results, the need for outpatient follow up, a family practitioner, to return to the emergency department if symptoms worsen or persist or if there are any questions or concerns that arise at home. 12/12 17:30 Order name: CBC with Diff; Complete Time: 18:15 kb 12/12 17:30 Order name: CMP; Complete Time: 18:54 kb 12/12 17:30 Order name: Lipase; Complete Time: 18:54 kb 12/12 17:30 Order name: Test, Urine; Complete Time: 18:41 kb 12/12 17:30 Order name: Urinalysis w/ reflexes; Complete Time: 18:38 kb 12/12 17:30 Order name: CT Abd/Pelvis - Without Contrast; Complete Time: 18:29 kb 12/12 17:30 Order name: IV Saline Lock; Complete Time: 18:34 kb 12/12 17:30 Order name: Labs collected and sent; Complete Time: 18:12 kb Administered Medications: 18:33 Drug: NS 0.9% IV 1000 ml Route: IV; Rate: 1 bolus; Site: right hand; ph 19:51 Follow up: IV Status: Completed infusion ph 18:33 Drug: Ondansetron IVP 4 mg Route: IVP; Site: right antecubital; ph 19:51 Follow up: Response: No adverse reaction ph 18:33 Drug: morphine IVP or IV 4 mg Route: IVP; Infused Over: 4 mins; Site: right hand; ph 19:51 Follow up: Response: No adverse reaction ph 19:29 Drug: Amoxicillin-Clavulanate PO 875 mg Route: PO; aa9 Disposition Summary: 12/12/22 18:51 Discharge Ordered Location: Home kb Condition: Stable kb Diagnosis - Left sided colitis kb Followup: kb - With: Emergency Department - When: As needed - Reason: Worsening of condition Followup: kb - With: Private Physician - When: 2 - 3 days - Reason: Recheck today's complaints, Continuance of care, Re-evaluation by your physician Discharge Instructions: - Discharge Summary Sheet kb - Colitis kb Forms: - Medication Reconciliation Form kb - Thank You Letter kb - Antibiotic Education kb - Prescription Opioid Use kb Prescriptions: - ondansetron 4 mg Oral Tablet,disintegrating - take 1 tablet by ORAL route every 6 hours As needed; 12 tablet; Refills: 0, kb Product Selection Permitted - Augmentin 875-125 mg Oral Tablet - take 1 tablet by ORAL route every 12 hours for 10 days; 20 tablet; Refills: 0, kb Product Selection Permitted - dicyclomine 20 mg Oral Tablet - take 1 tablet by ORAL route 4 times per day As needed; 20 tablet; Refills: 0, kb Product Selection Permitted Addendum: 12/14/2022 08:38 Co-signature as Attending Physician, Leo MCDUFFIE I reviewed the patient's care r n provided by the Advanced Practice Provider and agree with the diagnosis and treatment plan. Signatures: Dispatcher [employer] Irma Lira, MANUFACTURING MACHINE OPERATOR-C MANUFACTURING MACHINE OPERATOR-Ckb Leo Diop MD MD rn Genoveva Mccain RN RN Puja Mclean RN RN vg1 Maricruz Gaston RN RN aa9
[2022-12-12 18:53] LABS: Potassium 4.3 mEq/L (3.5-5.1)
[2022-12-12] MEDS ORDERED: AMOX/K CLAV 875 MG TAB ONE (19:18)
[2022-12-12 20:15] VITALS: BP 118/68; TEMP 98; O2SAT 99
== END 2022-12-12 19:39 | disposition home or self-care (01) ==
LOC: ER 17:14
DX: K51.50 Left sided colitis without complications (principal); I48.91 Unspecified atrial fibrillation; Z88.1 Allergy status to other antibiotic agents; Z88.3 Allergy status to other anti-infective agents; Z88.5 Allergy status to narcotic agent; Z88.6 Allergy status to analgesic agent; Z88.8 Allergy status to other drugs, medicaments and biological substances; Z91.013 Allergy to seafood; Z91.040 Latex allergy status; Z91.048 Other nonmedicinal substance allergy status
CPT/HCPCS: 85025; 81001; 36415; 81025; 83690; 80053; 74176; 99284; J2405; J7030

== ENCOUNTER 2022-12-14 22:40 | Emergency (ER) | payer OTHER ==
--- OUTSIDE RECORDS SUMMARY | 2022-12-14 23:02 | XMS REPORT | Continuity of Care Document ---
:1975 Author Organization [facility] t Address [address] [place] [address] Care Team Providers Name Role Phone Declan Field Primary Care Physician [phone] LEANDRO OLIVARES Attending Clinician Unavailable MIHIR LUNA Attending Clinician Unavailable Mihir Luna MD Attending Clinician SIMRAN CONTEH Attending Clinician Unavailable Simran Conteh MD Attending Clinician Doctor Unassigned, [place] Attending Clinician Unavailable Halima Vargas MD Attending Clinician HALIMA VARGAS Attending Clinician Unavailable Arceneaux_C Attending Clinician Unavailable Haroon Ramirez MD Attending Clinician Joe Boles DO Attending Clinician TEJAL RIZZO Attending Clinician Unavailable Waleska Henriquez RN Attending Clinician Unavailable Starr Vinson RN Attending Clinician Unavailable LEANDRO OLIVARES M.D. Attending Clinician Unavailable VIRAL COFFEY Attending Clinician Unavailable Felicia Frost MD Attending Clinician LUCY NASCIMENTO M.D. Attending Clinician Unavailable Bladimir Brumfield MD Attending Clinician [phone] Obdulio Ragland MD Attending Clinician MD OBDULIO RAGLAND Attending Clinician Unavailable Inez García MD Attending Clinician [phone] JUDE MATHEWS M.D. Attending Clinician Unavailable Woo Greenberg DO Attending Clinician [phone] [place] MD Attending Clinician Clarice Brannon MD Attending Clinician Lj Thakkar Attending Clinician MD LJ THAKKAR Attending Clinician Unavailable Jose Elias Torres MD Attending Clinician Lydia Oden MD Attending Clinician [phone] Maribel Dickey MD Attending Clinician MD MARIBEL DICKYE Attending Clinician Unavailable MD INEZ GARCÍA Attending [...] Number Effective Date Expiration Date S ource [facility] [id number] 2020 STAR 00:00:00 [facility] STAR [id number] 2022 00:00:00 [facility] REVIEW [id number] 2020 00:00:00 Problems Condition Condition Condition Status Onset Resolution Last Treating Co mments Source Name Details Category Date Date Treatment Clinician Date Traumatic Traumatic Disease Active Met hodi brain brain 12-06 st injury injury 00:00: Hospita 00 l Seizure-li Seizure-li Disease Active M ethodi ke ke 09-16 st activity activity 00:00: Hospit a 00 l Need for Need for Disease Active Metho di assistance assistance 05-08 due to due to 00:00: Hospita unsteady unsteady 00 l gait gait Seizures Seizures Disease Active Metho di 05-08 st 00:00: Hospita 00 l Dizziness Dizziness Disease Active Met hodi 05-06 00:00: Hospita 00 l Chest pain Chest pain Disease Active 2019-0 M ethodi 2-16 st 00:00: Hospita 00 [...] 09:01:00 l Active 23:00: Antonio 02/12/2016 00 [facility] D25.9 - D25.9 - Diagnosis Active 2014-082015-06-08 Memoria "LEIOMYOMA "LEIOMYOMA 15:22:00 l OF UTERUS, OF UTERUS, 00:01: He adeliaann UNSPECIFI" UNSPECIFI" 00 Active 06/08/2015 SOFIA Alvarez VAGINAL VAGINAL Diagnosis Active 2014-12-21 Memoria BLEEDING- BLEEDING- 09-03 13:01:00 l 6 WKS PG 6 WKS PG 00:00: Jordy roberto Active 09/03/2014 [facility] CONSTIPATI CONSTIPAT Diagnosis Active 2014-12-14 Memoria ON, NAUSEA ION, 08-24 09:23:00 l NAUSEA 00:00: Antonio Active 00 08/24/2014 [facility] History of History of Problem Resolve [place] [...] rs active active ity of problems problems [facility] Anemia Anemia Problem Resolve 2016-02-16 Mem oria (disorder) (disorder) d 00:25:42 l Resolved [place] Problem 02/16/2016 [facility] Migraine Migraine Problem Resolve 2016-02-16 Memoria (disorder) (disorder) d 00:25:42 l Resolved [place] Problem 02/16/2016 [facility] Mitral Mitral Problem Resolve 2016-02-16 Mem oria valve valve d 00:25:42 l prolapse prolapse Jordy n (disorder) (disorder) Resolved Problem 02/16/2016 [place] Anxiety Anxiety Problem Active 2016-02-16 Me moria (finding) (finding) 00:25:42 l Active [place] Problem 02/16/2016 [facility] [place] Bipolar Bipolar Problem Active 2016-02-16 Me moria (qualifier (qualifier 00:25:42 l value) value) [place] Active Problem 02/16/2016 [facility] [place] Congestive Congestiv Problem Active 2016-02-16 Memoria heart e heart 00:25:42 l failure failure [place] (disorder) (disorder) Active Problem 02/16/2016 [facility] [place] Depressive Depressiv Problem Active 2016-02-16 Memoria disorder e disorder 00:25:42 l (disorder) (disorder) He rmann Active Problem 02/16/2016 [facility] Gastroesop Gastroeso Problem Active 2016-02-16 Memoria hageal phageal 00:25:42 l reflux reflux Antonio disease disease (disorder) (disorder) Active Problem 02/16/2016 [facility] [place] Heart Heart Problem Active 2016-02-16 Memor ia failure failure 00:25:42 l (disorder) (disorder) He rmann Active Problem 02/16/2016 [facility] [place] Hypertensi Hypertens Problem Active 2016-02-16 Memoria ve kellee 00:25:42 l disorder, disorder, Herm alem systemic systemic arterial arterial (disorder) (disorder) Active Problem 02/16/2016 [facility] [place] Multiple Multiple Problem Active 2016-02-16 Memoria sclerosis sclerosis 00:25:42 l (disorder) (disorder) He rmann Active Problem 02/16/2016 [facility] [place] Osteoarthr Osteoarth Problem Active 2016-02-16 Memoria itis ritis 00:25:42 l (disorder) (disorder) He rmann Active Problem 02/16/2016 [facility] [place] Drug Drug Problem Active 2016-02-16 Memor ia overdose overdose 00:25:42 l (disorder) (disorder) He rmann Active Problem 02/16/2016 [facility] Rheumatoid Rheumatoi Problem Active 2016-02-16 Memoria arthritis d 00:25:42 l (disorder) arthritis Her sarkar (disorder) Active Problem 02/16/2016 [facility] 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 00:25:42 l (disorder) (disorder) He rmann Active Problem 02/16/2016 [facility] Uterine Uterine Problem Active 2016-02-16 Me moria leiomyoma leiomyoma 00:25:42 l (disorder) (disorder) He rmann Active Problem 02/16/2016 [facility] Urinary Urinary Problem Active 2016-02-16 Me moria tract tract 00:25:42 l infectious infectious He rmalem disease disease (disorder) (disorder) Active Problem 02/16/2016 [facility] 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 [...] Anemia, 00 d unspecifie d 02/13/2016 02/16/2016 [facility] Discharge Discharge Problem 2016-02-16 2016-02-16 Memoria Diagnosis: Diagnosis: 02-12 00:25:42 00:25:42 l Abnormal Abnormal 05:00: Jordy n uterine uterine 00 and and vaginal vaginal bleeding, bleeding, unspecifie unspecifie d d 02/13/2016 6 [facility] Discharge Discharge Problem 2014-09-06 2014-09-06 Memoria Diagnosis: Diagnosis: 09-04 16:01:45 16:01:45 l Vaginal Vaginal 06:00: [place] bleeding bleeding 00 09/04/2014 09/06/2014 [facility] Discharge Discharge Problem 2014-09-06 2014-09-06 Memoria Diagnosis: Diagnosis: 09-04 16:01:45 16:01:45 l Dysmenorrh Dysmenorrh 06:00: He rodger ea ea 00 09/04/2014 09/06/2014 [facility] Discharge Discharge Problem 2014-08-26 2014-08-26 Memoria Diagnosis: Diagnosis: 08-24 17:22:44 17:22:44 l Nausea Nausea 06:00: [place] 08/24/2014 00 08/26/2014 [facility] Discharge Discharge Problem 2014-0 2014-08-26 2014-08-26 Memjimbo Diagnosis: Diagnosis: 08-24 17:22:44 17:22:44 l Constipati Constipati 06:00: He rmann on on 08/24/2014 08/26/2014 [facility] Allergies, Adverse Reactions, Alerts Allergy Allergy Status Severity Reaction(s) Onset Inactive Treating Comm ents Source Name Type Date Date Clinician Iodine Propensi Active Hives 2022-0 [facility] ty to 08-14 ity of adverse 00:00: [place] reaction 00 Medical s Branch Latex Propensi Active Rash 2022-0 Univers ty to 08-14 ity of [...] s to Products drug Tramadol Propensi Active 2016-[address] [facility] adverse [facility]: [facility] reaction [facility] Center s Vancomyc Propensi Active [facility] to 2[facility]13 [facility] adverse 00:00: Medical s reaction 00 Center s Vancomyc Propensi Active Hives 0 Method i in ty to 2-[facility] Anal[facility] adverse 00:00: Hospita s reaction 00 l s to drug TRAMADOL Allergy Active 2016- [facility] 2-13 00:00: 00 VANCOMYC Allergy Active [...] Active Memori a d d 8-09 l [place] 00:00: Jordy roberto trast trast 00 dyes dyes Levaquin Levaquin Active Memori a 8-09 l 00:00: [place] 00 Phenerga Phenerga Active Memori a n n 8-09 l 00:00: [place] 00 Food Food Active Memoria Seafood Seafood l [place] Latex Latex Active Memoria l [place] morphine morphine Active Memori a l [place] vancomyc vancomyc Active Memori a in in l [place] Elavil Elavil Active Memoria l [place] STEROIDS Allergy Active [facility] Betadine Allergy Active [...] Start Date Stop Date Source Maternal aunt Cancer [facility] Maternal aunt Melanoma [facility] Maternal grandfather Stroke [facility] Natural mother Diabetes [facility] Natural sister Stroke [facility] Maternal uncle Leukemia [facility] Family member No history of [facility] t cancer Hospital Social History Social Habit Start Date Stop Date Quantity Comments Source Gender identity 2020-05-06 Identifies as Method ist 15:03:15 female gender Hospital (finding) Sexual orientation 2020-05-06 Heterosexual Meth odist 15:03:15 (finding) Hospital History SDOH [facility] Frequency Hospita l History SDOH [facility] Alcohol Std Drinks Hospit al History SDOH [facility] Binge [facility] Exposure to 2022-12-01 2022-12-11 Not sure University SARS-CoV-2 (event) 00:00:00 20:24:00 [facility] Alcohol intake 2021-06-29 2021-06-29 Current non-drinker M ethodist 00:00:00 00:00:00 of alcohol Hospital (finding) History of Social 2021-06-29 2021-06-[address] function 00:00:00 00:00:00 Hospital Tobacco use and 2021-04-25 2021-04-25 Smokeless tobacco [facility] exposure 00:00:00 00:00:00 non-user Alcohol Comment 2018-08-02 2018-08-[address] 00:00:00 00:00:00 Hospital Sex Assigned At [address] [facility] 00:00:00 00:00[facility]00 [facility] Center Smoking Status Start Date Stop Date Source Tobacco smoking consumption [facility] Social History [facility] Medications Ordered Filled Start Stop Current Ordering Indication Dosage Frequency Signature Comments Components Source Medication Medication Date Date Medication? Clinician (SIG) Name Name morpHINE (4 No 4mg 4 mg, Slow Univers mg/mL) 12-12 IV Push, ity of injection 4 06:00: 06:03 [place] :[place] dose, On Medical Sun12/12/22 Branch at 0100, STAT dicyclomine No 20mg 20 mg, Uni vers (BENTYL) 12-12 Intramuscu ity of injection 04:45: 04:41 lar, ONCE, [place] 20 mg 00 :00 1 dose, On Medical Sun12/11/22 Branch at 2345, Routine ondansetron Yes [id number] 4mg Take 1 Univers (ZOFRAN) 4 5-02 tablet by ity of mg tablet 00:00: mouth [place] 00 every 8 Medical (eight) Branch hours as needed for Nausea and Vomiting (N/V). dicyclomine Yes [id number] 20mg Take 1 Univers 20 mg 5-02 [...] 7-10). Indication s: acute pain FENTanyl PF No 25ug 25 mcg, Un solange (SUBLIMAZE 11-27 Slow IV ity o f (PF)) 23:15: 00:05 Push, [place] injection 00 :00 ONCE, 1 Medical 25 mcg dose, On Branch Sun11/27/22 at 1815, STAT cefTRIAXone No 1000mg 1,000 mg, Univers (ROCEPHIN) 11-27 IV ity of 1,000 mg in 21:15: 23:18 Piggyback, [place] NaCl 0.9% 00 :00 ONCE, 1 Medical (NS) 100 mL dose, On [facility] MINI-BAG Sun11/27/22 at 1615, Administer over 30 Minutes, 100 mL
Reas on for Anti-Infec tive: Documented Infection< br>Documen gaye Infection Site: Urine<br&g t;Duration of Therapy: 7 days cefpodoxime 2022- Yes [id number] 100mg Take 1 Univers 100 mg 11-27 0425 tablet by ity of tablet 00:00: 04:59 mouth in [place] 00 :00 the Medical morning Branch and 1 tablet [...] over 15 Minutes, 100 mL levETIRAcet Yes [id number] 1000mg Take 1 Univers am (KEPPRA) 08-14 tablet by ity of 1,000 mg 00:00: mouth in [place] tablet 00 the morning and 1 tablet in the evening. Lacosamide 2023-0 Yes [id number] 200mg Take 1 Univers (VIMPAT) 1-02 tablet by ity of 200 mg 00:00: mouth in [place] tablet 00 the Medical morning Branch and 1 tablet in the evening. ALPRAZolam 3-0 Yes [id number] .25mg Take 1 Univers (XANAX) 1-02 tablet by ity of 0.25 mg 00:00: mouth in [place] tablet 00 the Medical morning Branch and 1 tablet at noon and 1 tablet in the evening. levETIRAcet 3-0 Yes [id number] 1000mg Take 1 Univers am (KEPPRA) 1-02 tablet by ity of 1,000 mg 00:00: mouth in [place] tablet 00 the Medical morning Branch and 1 tablet in the evening. Lacosamide 3-0 Yes [id number] 200mg Take 1 Univers (VIMPAT) 1-02 tablet by ity of 200 mg 00:00: mouth in [place] tablet 00 the Medical morning Branch and 1 tablet in the evening. ALPRAZolam 3-0 Yes [id number] .25mg Take 1 Univers (XANAX) 1-02 tablet by ity of 0.25 mg 00:00: mouth in [place] tablet 00 the Medical morning Branch and 1 tablet at noon and 1 tablet in the evening. levETIRAcet 3-0 Yes [id number] 1000mg Take 1 Univers am (KEPPRA) 1-02 tablet by ity of 1,000 mg 00:00: mouth in [place] tablet 00 the Medical morning Branch and 1 tablet in the evening. Lacosamide 3-0 Yes [id number] 200mg Take 1 Univers (VIMPAT) 1-02 tablet by ity of 200 mg 00:00: mouth in [place] tablet 00 the Medical morning Branch and 1 tablet in the evening. ALPRAZolam 3-0 Yes [id number] .25mg Take 1 Univers (XANAX) 1-02 tablet by ity of 0.25 mg 00:00: mouth in [place] tablet 00 the Medical morning Branch and 1 tablet at noon and 1 tablet in the evening. levETIRAcet 3-0 Yes [id number] 1000mg Take 1 Univers am (KEPPRA) 1-02 tablet by ity of 1,000 mg 00:00: mouth in [place] tablet 00 the Medical morning Branch and 1 tablet in the evening. Lacosamide 2023-0 Yes [id number] 200mg Take 1 Univers (VIMPAT) -02 tablet by ity of 200 mg 00:00: mouth in [place] tablet 00 the Medical morning Branch and 1 tablet in the evening. ALPRAZolam Yes [id number] .25mg Take 1 Univers (XANAX) 08-14 tablet by ity of 0.25 mg 00:00: mouth in [place] tablet 00 the Medical morning Branch and 1 tablet at noon and 1 tablet in the evening. acetaminoph 2020-08- No [id number] 1{tbl} Q6H Take 1 Methodi en-codeine -17 - tablet by st (TYLENOL 00:00: 05:59 mouth Hospita WITH 00 :00 every 6 l CODEINE #3) (six) 300-30 mg hours as per tablet needed for moderate pain for up to 5 days .acute pain. acetaminoph 2020-08 No [id number] 1{tbl} Q6H Take 1 Methodi en-codeine 08-29 [...] He alth 12:13: s 10 bumetanide Yes [id number] 2mg QD Take 1 U T (Bumex) 2 -13 tablet (2 Healt h MG tablet 00:00: mg total) 00 by mouth 1 (one) time each day. lisinopril Yes [id number] 2.5mg QD Take 1 UT 2.5 MG 9-13 tablet Health tablet 00:00: (2.5 mg 00 total) by mouth 1 (one) time each day. metoprolol Yes [id number] 50mg Q.5D Take 1 U T succinate 9-13 tablet (50 Heal th XL 00:00: mg total) (Toprol-XL) 00 by mouth 2 50 MG 24 hr (two) tablet times a day. lisinopril 2020- No 2.5mg 2.5 mg. UT 2.5 MG 02-08 Health tablet 19:34: 00:00 53 :00 metoprolol 2020-2020- No 50mg 50 mg. UT succinate 02-08 Health XL 19:34: 00:00 (Toprol-XL) 53 :00 50 MG 24 hr tablet lisinopril Yes [id number] 2.5mg QD Take 1 UT 2.5 MG 02-08 tablet Health tablet 00:00: (2.5 mg 00 total) by mouth 1 (one) time each day. metoprolol Yes [id number] 50mg Q.5D Take 1 U T succinate 02-08 tablet (50 Heal th XL 00:00: mg total) (Toprol-XL) 00 by mouth 2 50 MG 24 hr (two) tablet times a day. lisinopril 2020- No [id number] 2.5mg QD Take 1 UT 2.5 MG 02-08 tablet Health tablet 00:00: 00:00 (2.5 mg 00 :00 total) by mouth 1 (one) time each day. metoprolol 2020- No [id number] 50mg Q.5D Take 1 UT succinate 02-08 tablet (50 Hea lth XL 00:00: 00:00 mg total) (Toprol-XL) 00 :00 by mouth 2 50 MG 24 hr (two) tablet times a day. lisinopriL Yes 2.5mg QD Take 2.5 [...] Hospita capsule 59 l busPIRone Yes 15mg Q.[id number] Take 15 mg Methodi (BUSPAR) 10 4-26 [id number] [address] mouth [address] MG tablet 16:32: [...] mg 59 times a l tablet day. aspirin 325 0 Yes 325mg Take [...] capsule 59 l busPIRone 0 Yes 15mg Q.[id number] Take 15 mg [facility] (BUSPAR) 10 4-26 [id number] by mouth 3 st MG tablet 11:32: [...] capsule 59 l busPIRone 2020-0 Yes 15mg Q.[id number] Take 15 mg [facility]i (BUSPAR) 10 4-26 [id number] by mouth 3 [address] MG tablet 11:32: 3D (three) Hospi ta 59 times a l day. ondansetron 2021-0 Yes 8mg Q8H Take 8 mg M [...] Hospita capsule 59 l busPIRone Yes 15mg Q.[id number] Take 15 mg [facility]i (BUSPAR) 10 4-26 [id number] by mouth 3 [address] MG tablet 11:32: [...] capsule 59 l busPIRone 0 Yes 15mg Q.[id number] Take 15 mg [facility]i (BUSPAR) 10 4-26 [id number] by mouth 3 [address] MG tablet 11:32: [...] Hospita capsule 59 l busPIRone Yes 15mg Q.08643885 Take 15 mg [facility]i (BUSPAR) 10 - [id number] by mouth 3 st MG tablet 11:32: [...] capsule 59 l busPIRone 0 Yes 15mg Q.88203637 Take 15 mg [facility]i (BUSPAR) 10 4-26 [id number] by mouth 3 st MG tablet 11:32: [...] Hospita capsule 59 l busPIRone Yes 15mg Q.[id number] Take 15 mg Methodi (BUSPAR) 10 4-26 [id number] by mouth 3 [address] MG tablet 11:32: [...] capsule 59 l busPIRone 0 Yes 15mg Q.62030444 Take 15 mg [facility]i (BUSPAR) 10 4-26 [id number] by mouth 3 [address] MG tablet 11:32: [...] capsule 59 l busPIRone 2020-0 Yes 15mg Q.[id number] Take 15 mg [facility]i (BUSPAR) 10 4-26 [id number] by mouth 3 [address] MG tablet 11:32: [...] tablet hours for 10 [place] [id number] 1{tbl} Q6H Take 1-2 Methodi en-codeine 3-24 03-[address] (TYLENOL 00:00: 04:59 mouth Hospita WITH 00 :00 every 6 l CODEINE #3) (six) 300-30 mg hours as per tablet needed for moderate pain for up to 5 days .acute pain. acetaminoph 2020- No [id number] 1{tbl} Q6H Take 1-2 Methodi en-codeine 3-24 03-[address] (TYLENOL 00:00: 04:59 mouth Hospita WITH 00 :00 every 6 l CODEINE #3) (six) 300-30 mg hours as per tablet needed for moderate pain for up to 5 days .acute pain. acetaminoph 2020- No 1{tbl} Q6H Take 1-2 Methodi en-codeine [...] QD Take 1 Meth ketty (BUMEX) 2 1-30 03-02 tablet (2 st MG tablet 00:00: 05:59 mg total) Ho spita 00 :00 by mouth l daily for 30 days. BUMETanide 2020- No 2mg QD Take 1 Meth ketty (BUMEX) 2 09-11- tablet (2 st MG tablet 00:00: 05:59 [...] per tablet hours for 10 days. metoprolol 2019-2019- No 100mg Take 100 M ethodi tartrate 05-[address] (LOPRESSOR) 17:49: 00:00 mouth. Hos denise 100 mg 43 :00 l tablet morPHINE 2019-2019- No 30mg Q.5D Take 30 mg Me thodi (MS CONTIN) 05-08 by mouth 2 s t 30 MG 12 hr 17:49: 00:00 (two) Hosp arcenio tablet 43 :00 times a l day. Extended Release HYDROcodone 2019-0 2019- No Q.5D Take by Me thodi -acetaminop 05-[address] hen (NORCO) 17:49: 00:00 (two) Hosp arcenio 5-325 mg 43 :00 times a l per tablet day. diazePAM 2019-2019- No 10mg Q.10030785 Take 10 mg Methodi (VALIUM) 5 05-08 [id number] mouth 3 [address] MG tablet 17:49: [...] to 30 days. lactulose 2020- No 20g Q.86386517 Take 30 mL Methodi 20 gram/30 05-08 [id number] (20 g s t mL solution 00:00: 04:59 3D total) by Hospita 00 :00 mouth 3 l (three) times a day as needed (CONSTIPAT ION) for up to 30 days. meclizine 2020- No 25mg Q.[id number] Take 1 Methodi (ANTIVERT) 05-08 [id number] tablet (25 st 25 mg 00:00: 04:59 3D mg total) Hospit a tablet 00 :00 by mouth 3 l (three) times a day as needed for dizziness for up to 30 days. pregabalin 2020- No 50mg Q.[id number] Take 2 [facility]i (LYRICA) 25 05-08- [id number] capsules st MG capsule 00:00: 04:59 3D [...] 20mg QD Take [address] [facility] (PRILOSEC) 7-11 07-11 [facility] 20 MG 00:00: 23:59 [...] mouth 2 Center (two) times daily. dicyclomine 2019-0 2020- No 20mg Q.5D Take [address] [facility] (BENTYL) 20 6-24 06-24 tablet (20 L ukes mg tablet 00:00: 23:59 mg total) Me dical 00 :00 by mouth 2 Center (two) times daily. dicyclomine 2019-0 2020- No 20mg Q.5D Take [address] (BENTYL) 20 6-24 06-24 tablet (20 L ukes mg tablet 00:00: 23:59 mg total) Me dical 00 :00 by mouth 2 Center (two) times daily. albuterol 2020-0 2021- No 2{puff} Inhale [address] [facility] HFA [...] 2{puff} Inhale [address] [facility] HFA 3- 03- puffs by [facility] (VENTOLIN 00:00: 23:59 mouth [...] ermann tablet 00 tab, 0 Refill(s) ferrous 2015-0 Yes 325 mg = 1 Bhavesh mario gluconate 7-03 tab, PO, l 325 mg oral 10:36: TID, # 90 H ermann tablet 00 tab, 0 Refill(s) ferrous 2016-0 Yes 325 mg = 1 Bhavesh mario gluconate 7-03 tab, PO, l 325 mg oral 10:36: TID, # 90 H ermann tablet 00 tab, 0 Refill(s) ferrous 2015-0 Yes 325 mg = 1 Bhavesh mario gluconate 7-03 tab, PO, l 325 mg oral 10:36: TID, # 90 H ermann tablet 00 tab, 0 Refill(s) ferrous 2015-0 Yes 325 mg = 1 Bhavesh mario gluconate 7-03 tab, PO, l 325 mg oral 10:36: TID, # 90 H ermann tablet 00 tab, 0 Refill(s) ferrous 2015-0 Yes 325 mg = 1 Bhavesh mario [...] Memoria 7- Route: l 09:11: IVP, Drug [place] 00 form: INJ, ONCE, Dosing Weight 68.182, kg, Priority: STAT, Start date: 02/13/16 4:11:00 CDT, Stop date: 02/13/16 4:11:00 CDT Sodium 2016-0 No 1,000 mL, Memori a Chloride 7- Rate: l 0.9% IV 09:11: 1,000 [place] 1000 mL 00 ml/hr, Infuse over: 1 hr, Route: IV, Dosing Weight 68.182 kg, Total Volume: 1,000, Start date: 02/13/16 4:11:00 CDT, Duration: 1 doses or times, Stop date: 02/13/16 5:10:00 CDT, Bolus Dose Reglan 2016-0 No 10 mg, Memoria 7-03 Route: l 09:11: IVP, Drug [place] 00 form: INJ, ONCE, Dosing Weight 68.182, [...] Memoria 7-03 Route: l 09:11: IVP, Drug [place] 00 form: INJ, ONCE, Dosing Weight 68.182, kg, Priority: STAT, Start date: 02/13/16 4:11:00 CDT, Stop date: 02/13/16 4:11:00 CDT Sodium 2016-0 No 1,000 mL, Memori a Chloride 7- Rate: l 0.9% IV 09:11: 1,000 [place] 1000 mL 00 ml/hr, Infuse over: 1 [...] 7- Rate: l 0.9% IV 09:11: 1,000 [place] 1000 mL 00 ml/hr, Infuse over: 1 [...] 7-03 Rate: l 0.9% IV 09:11: 1,000 [place] 1000 mL 00 ml/hr, Infuse over: 1 [...] 7-03 Rate: l 0.9% IV 09:11: 1,000 [place] 1000 mL 00 ml/hr, Infuse over: 1 [...] 7-03 Rate: l 0.9% IV 09:11: 1,000 [place] 1000 mL 00 ml/hr, Infuse over: 1 [...] 7- Rate: l 0.9% IV 09:11: 1,000 [place] 1000 mL 00 ml/hr, Infuse over: 1 [...] 02-12 Route: PO, l 08:17: Drug form: [place] 00 TAB, ONCE, Dosing Weight 68.182, kg, [...] 02-12 Route: PO, l 08:17: Drug form: [place] 00 TAB, ONCE, Dosing Weight 68.182, kg, [...] - Route: PO, l 08:17: Drug form: [place] 00 TAB, ONCE, Dosing Weight 68.182, kg, [...] 02-12 Route: PO, l 08:17: Drug form: [place] 00 TAB, ONCE, Dosing Weight 68.182, kg, Priority: STAT, Start date: 02/13/16 3:17:00 CDT, Stop date: 02/13/16 3:17:00 CDT Zofran 2016-0 No 4 mg, Memoria 7- Route: l 06:19: IVP, Drug [place] 00 form: INJ, ONCE, Dosing Weight 68.182, [...] Memoria 7-03 Route: l 06:19: IVP, Drug [place] 00 form: INJ, ONCE, Dosing Weight 68.182, kg, Priority: STAT, Start date: 02/13/16 1:19:00 CDT, Stop date: 02/13/16 1:19:00 CDT Zofran 2016-0 No 4 mg, Memoria 7- Route: l 06:19: IVP, Drug [place] 00 form: INJ, ONCE, Dosing Weight 68.182, kg, Priority: STAT, Start date: 02/13/16 1:19:00 CDT, Stop date: 02/13/16 1:19:00 CDT Zofran 2016-0 No 4 mg, Memoria 7 Route: l 06:19: IVP, Drug [place] 00 [...] CDT Zofran 2016-0 No 4 mg, Memoria 7 Route: l 06:19: IVP, Drug [place] 00 form: INJ, ONCE, Dosing Weight 68.182, kg, Priority: STAT, Start date: 02/13/16 1:19:00 CDT, Stop date: 02/13/16 1:19:00 CDT Zofran No 4 mg, Memoria 7-03 Route: l 06:19: IVP, Drug form: INJ, ONCE, Dosing Weight 68.182, kg, Priority: STAT, Start date: 02/13/16 1:19:00 CDT, Stop date: 02/13/16 1:19:00 CDT Saline No Notes: Memoria Flush 0.9% 7-03 (Same as: l 06:07: BD [place] 00 Posiflush) Saline No Notes: Memoria Flush 0.9% 7-03 (Same as: l 06:07: BD [place] 00 Posiflush) Saline No Notes: Memoria Flush 0.9% 7-03 (Same as: l 06:07: BD [place] 00 Posiflush) Saline No Notes: Memoria Flush [...] 0.9% 7-03 (Same as: l 06:07: BD [place] 00 Posiflush) Saline No Notes: Memoria Flush 0.9% 7-03 (Same as: l 06:07: BD [place] 00 Posiflush) Saline No Notes: Memoria Flush 0.9% 7-03 (Same as: l 06:07: BD [place] 00 Posiflush) Ibuprofen Yes Special Memor ia 800 MG Oral 1-23 Instructio l Tablet 08:52: ns: Take Antonio [Motrin] 00 with food Ibuprofen Yes [facility] 800 MG Oral 1-23 Instructio l Tablet 08:52: ns: Take Antonio [Motrin] 00 with food Ibuprofen Yes [facility] 800 MG Oral 1-23 Instructio l Tablet 08:52: ns: Take [place] [Motrin] 00 with food Ibuprofen Yes [facility] 800 MG Oral 1-23 Instructio l Tablet 08:52: ns: Take [place] [Motrin] 00 with food Ibuprofen Yes [facility] 800 MG Oral 1-23 Instructio l Tablet 08:52: ns: Take [place] [Motrin] 00 with food Ibuprofen Yes [facility] 800 MG Oral 1-23 Instructio l Tablet 08:52: ns: Take [place] [Motrin] 00 with food Ibuprofen Yes [facility] 800 MG Oral 1-23 Instructio l Tablet 08:52: ns: Take [place] [Motrin] 00 with food Ibuprofen Yes Special [...] 1-23 Instructio l Tablet 08:52: ns: Take [place]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 malignant neoplasm [facility] colon (procedure) [code = 745191862] Future Scheduled [address] [facility] Test 00:00:00 malignant neoplasm of [facility] colon (procedure) [code = 720197612] Future Scheduled 1973 S[facility] [address] [facility] 00:00:00 (combo) [code = CT Medical C enter Colonography (combo)] Future Scheduled [address] [facility] Test 00:00:00 malignant neoplasm of [facility] colon (procedure) [code = 372016561] Future Scheduled [address] [facility] Test 00:00:00 malignant neoplasm of [facility] colon (procedure) [code = 683293456] Future Scheduled [address] [facility] Test 00:00:00 malignant neoplasm of [facility] colon (procedure) [code = 696787309] Future Scheduled [address] [facility] Test 00:00:00 malignant neoplasm of [facility] colon (procedure) [code = 863826475] Future Scheduled 1973 [facility] Scheduled [address] [facility] 00:00:00 (combo) [code = CT Medical C enter Colonography (combo)] Future Scheduled [address] [facility] Test 00:00:00 malignant neoplasm of [facility] colon (procedure) [code = 563599974] Future Scheduled [address] [facility] Test 00:00:00 malignant neoplasm of [facility] colon (procedure) [code = 934846333] Future Scheduled [address] [facility] Test 00:00:00 malignant neoplasm of [facility] colon (procedure) [code = 939984047] Future Scheduled [address] [facility] Test 00:00:00 malignant neoplasm of [facility] colon (procedure) [code = 135317225] Future Scheduled 1973 [facility] [address] [facility] 00:00:00 (combo) [code = CT Medical C enter Colonography (combo)] Future Scheduled [address] [facility] Test 00:00:00 malignant neoplasm of [facility] colon (procedure) [code = 635849903] Future Scheduled [address] [facility] Test 00:00:00 malignant neoplasm of [facility] colon (procedure) [code = 217820729] Future Scheduled [address] [facility] Test 00:00:00 malignant neoplasm of [facility] colon (procedure) [code = 496981231] Future Scheduled [address] [facility] Test 00:00:00 malignant neoplasm of [facility] colon (procedure) [code = 943316343] Future Scheduled 1973 [facility] Future Scheduled [address] [facility] 00:00:00 (combo) [code = CT Medical C enter Colonography (combo)] Future Scheduled [address] [facility] Test 00:00:00 malignant neoplasm of [facility] Center colon (procedure) [code = 253059741] Future Scheduled [address] [facility] Test 00:00:00 malignant neoplasm of [facility] colon (procedure) [code = 646998229] Future Scheduled [address] [facility] Test 00:00:00 malignant neoplasm of [facility] Center colon (procedure) [code = 309716097] Future Scheduled [address] [facility] Test 00:00:00 malignant neoplasm of [facility] colon (procedure) [code = 858655552] Future Scheduled 1973 S[facility]] Medical [facility] r Future Scheduled [address] [facility] 00:00:00 (combo) [code = CT Medical C enter Colonography (combo)] Future Scheduled [address] [facility] Test 00:00:00 malignant neoplasm of [facility] Center colon (procedure) [code = 908833652] Future Scheduled [address] [facility] Test 00:00:00 malignant neoplasm of [facility] colon (procedure) [code = 563508011] Future Scheduled [address] [facility] Test 00:00:00 malignant neoplasm of [facility] colon (procedure) [code = 156546218] Future Scheduled [address] [facility] Test 00:00:00 malignant neoplasm of [facility] Center colon (procedure) [code = 596178346] Future Scheduled 1973 [facility]] Medical [facility] r Future Scheduled [address] [facility] 00:00:00 (combo) [code = CT Medical C enter Colonography (combo)] Future Scheduled [address] [facility] Test 00:00:00 malignant neoplasm of [facility] Center colon (procedure) [code = 699268327] Future Scheduled [address] [facility] Test 00:00:00 malignant neoplasm of [facility] Center colon (procedure) [code = 198497959] Future Scheduled [address] [facility] Test 00:00:00 malignant neoplasm of [facility] Center colon (procedure) [code = 281032997] Future Scheduled [address] [facility] Test 00:00:00 malignant neoplasm of [facility] Center colon (procedure) [code = 620538122] Future Scheduled 1973 [facility]oscopy [facility]] Medical Catherinee r Future Scheduled [address] [facility] Test 00:00:00 malignant neoplasm of [facility]ica [facility] Center colon (procedure) [code = 449855451] Future Scheduled [address] [facility] Test 00:00:00 malignant neoplasm of [facility]ica [facility] Center colon (procedure) [code = 709028930] Future Scheduled [facility]-19 [facility]INE ([facility] [code = [facility]-19 VACCINE (1)] Future Scheduled Hepatitis C screening [facility] Test (procedure) [code = 930588819] Future Scheduled Scre[facility] Test malignant neoplasm of cervix (procedure) [code = 630567665] Future Scheduled [facility]ACCINE [facility] [code = INFLUENZA VACCINE] Encounters Start End Encounter Admission Attending Care Care Encounter Source Date/Time Date/Time Type Type Clinicians Facility Department ID 2021-04-25 Outpatient [facility] [id number] [place] 12:28:46 [facility] 2020-12-18 Outpatient [facility] [id number] [place] 04:17:31 [facility] 2022-12-11 2022-12-12 Emergency X [facility] E[facility] [id number] Univers 20:26:00 [facility]:05[facility] 2022-12-11 2022-12-12 Emergency [facility] [id number] [id number] Univers 20:26:00 02:05:00 [facility] 350.1.13.10 ity [facility] 4.2.7.2.686 [facility] [id number] [address] 2022-11-27 2022-11-[address] [facility] ERT [id number] Univers 13:12:00 20:16:00 [facility] 2022-11-27 2022-11-27 Emergency [facility] 1.2.777.582 [id number] Univers 13:12:00 20:16:00 Simran GALLARDO 350.1.13.10 i ty of [place] 4.2.7.2.686 [facility] [id number] [address] 2022-11-27 2022-11-27 Orders Doctor ELGIN 1.2.840.114 [id number] Univers 00:00:00 00:00:00 Only Unassigned, JOVANNA 350.1.13.10 ity of [place] [facility] 4.2.7.2.686 [facility] [id number] [facility] [address] 2022-08-14 2022-08-14 [facility] 1.2.657.416 [id number] [id number] Univers 20:40:00 23:10:00 Halima Parminder SAMI 350.1.13.10 ity of [place] 4.2.7.2.686 [facility] [id number] [facility] [address] 2022-08-14 2022-08-14 [facility] [id number] Univers 20:40:00 23:10:00 [facility] 2022-05-16 2022-05-16 Outpatient Arceneaux_C VFP VFP 221 1653-20 Village 00:00:00 00:00:00 001420 Family Practic e 2021-06-29 2021-06-29 Emergency James, 1.2.840.1 [id number] Methodi 10:17:00 12:01:00 Haroon Young [address]773.1.[address] 3.430.2.7 Hospit a .3.911596 l .8 2021-06-29 2021-06-29 Travel 1.2.840.1 1.2.337.996 2357 [id number] Methodi 00:00:00 00:00:[address] 3.430.2.7 0.2.7.3.698 Ho spita .3.157891 084.8 l .8 2021-05-05 2021-05-06 Emergency ER [facility] [id number] 20:22:00 01:24:00 Joe Lai [facility] 2021-05-05 2021-05-05 Emergency ER [facility] Emergency [id number] [facility] 20:07:00 20:07:00 2021-05-05 2021-05-05 Travel [facility] [id number] [facility] 00[facility] 00[facility]00 [facility] 2021-04-25 2021-04-25 Office VINCE Olivares [facility] 1.2.840.114 [id number] [place] 10:00:00 12:28:43 Visit Leandro [facility] 350.1.13.58 H ealth [address] 4 9.2.7.2.686 [id number] 4 2021-02-18 2021-02-18 Emergency E MATTHIAS, [facility] 7503 [facility] 08:39:00 12:51:00 TEJAL 2021-02-08 2021-02-08 Orders VINCE Henriquez [facility] 1.2.840.114 [id number] 00:00:00 00:00:00 Only Waleska [facility] 350.1.13.58 [address] 4 9.2.7.2.686 [id number] 4 2021-02-08 2021-02-08 Orders Waleska Henriquez [facility] 1.2.840.11 4 [id number] [place] 00:00:00 00:00:00 Only Florence Waleska [facility] 350.1.13.58 Health [address] 4 9.2.7.2.686 [id number] 4 2020-12-20 2020-12-20 Telephone Vinson, 1.2.840.1 [id number] 2100 [id number] Methodi 00:00:00 00:00:[address] 3.430.2.7 Hospit a .3.234611 l .8 2020-12-16 2020-12-16 AppointVINCE Knutson [facility] 7410 7276 [place] 11:00:00 11:00:00 t; LEANDRO OLIVARES, Advanced P jn PANTOJA M.D. Cardiology [facility] 2020-12-14 2020-12-14 Telephone Vinson, 1.2.840.1 [id number] 2100 [id number] Methodi 00:00:00 00:00:[address] 3.430.2.7 Hospit a .3.275993 l .8 2020-12-07 2020-12-08 Outpatient E ERLINDA, SW PUL 7502 [facility] 17:43:00 13:15:00 VIRAL 2020-12-08 2020-12-08 EXT MHH OP Khalid, EXT MSRDP 1.2.840.114 1 [id number] [place] 00:00:00 00:00:00 Adnan LOCATION 350.1.13.58 H ealth 9.2.7.2.686 [id number] 0 2020-12-08 2020-12-08 EXT MHH OP Khalid, EXT MSRDP 1.2.840.114 1 [id number] [place] 00:00:00 00:00:00 Adnan LOCATION 350.1.13.58 H ealth 9.2.7.2.686 [id number] 0 2020-12-06 2020-12-06 Appointmen JEANNIE CLARKE [id number] [place] 14:00:00 14:00:00 t; BANKmillicent Jeronimo SANDIPAN SANDIPAN PATI, M.D. PATI, M.D. 2020-12-03 2020-12-06 [facility] 1.2.840.1 [id number] Methodi 16:45:00 11:32:00 Obdulio Spicer 49744.1.[address] 3.430.2.7 Hospit a .3.076226 l .8 2020-12-02 2020-12-02 [facility] [id number] 1 [place] 11:15:00 11:15:00 t; LEANDRO OLIVARES, Surgery - Chalo Cruz M.D. 2020-11-17 2020-11-17 Emergency Pedro, 1.2.840.1 [id number] 2100 [id number] Methodi 17:26:00 20:59:[address] Mendel 3.430.2.7 Hospit a .3.898975 l .8 2020-11-17 2020-11-[address] [facility] UTP [id number] 45 [place] 15:00:00 15:00:00 t; Carter ROQUE i, M.D. ans ASHTON, M.D. 2020-11-17 2020-11-17 Travel 1.2.840.1 1.2.869.029 1894 [id number] Methodi 00:00:00 00:00:[address] 3.430.2.7 0.2.7.3.698 Ho spita .3.435388 084.8 l .8 2020-11-02 2020-11-03 Emergency Dionicio, 1.2.840.1 [id number] 2 [id number] Methodi 23:00:00 01:47:[address] [place]elsy 3.430.2.7 Hospit a .3.424504 l .8 2020-11-02 2020-11-02 Travel 1.2.840.1 1.2.102.070 0146 [id number] Methodi 00:00:00 00:00:[address] 3.430.2.7 0.2.7.3.698 Ho spita .3.956810 084.8 l .8 2020-09-16 2020-09-17 Emergency [place] 1.2.840.1 1041 75869 [id number] Methodi 13:34:00 13:30:00 Clarice Brannon 84817.1.[address] Lj Thakkar Britni 3.430.2.7 Hospita .3.415854 l .8 2020-09-10 2020-09-11 Emergency Jose Elias Torres 1.2.840.1 1041 30907 [id number] Methodi 22:04:00 18:12:00 Lydia Oden 91118.1.[address] Maribel Dickey 3.430.2.7 H ospita Lj Thakkar Britni .3.492891 l .8 2020-09-10 2020-09-10 Travel 1.2.840.1 1.2.398.349 3923 894427 Methodi 00:00:00 00:00:[address] 3.430.2.7 0.2.7.3.698 Ho spita .3.647882 084.8 l .8 2020-07-15 2020-07-16 Emergency Pedro, 1.2.840.1 [id number] 2099 [id number] Methodi 20:20:00 01:48:[address] Mendel 3.430.2.7 Hospit a .3.249779 l .8 2020-07-15 2020-07-15 Travel 1.2.840.1 1.2.856.807 0876 883670 Methodi 00:00:00 00:00:[address] 3.430.2.7 0.2.7.3.698 Ho spita .3.753295 084.8 l .8 2020-05-06 2020-05-08 Emergency Kevin Sood 1.2.840.1 1041 38202 [id number] Methodi 00:09:00 12:49:00 Blaze Squires 47490.1.[address] 3.430.2.7 Hospit a .3.433997 l .8 2020-05-06 2020-05-06 Travel 1.2.840.1 1.2.544.502 0872 [id number] Methodi 00:00:00 00:00:[address] 3.430.2.7 0.2.7.3.698 Ho spita .3.215585 084.8 l .8 2020-02-20 2020-02-20 Emergency ER [facility] Emergency [id number] [facility] 19:04:00 19:04:00 2020-02-20 2020-02-20 Outpatient FBCOVID FBCOVID [id number] [facility] 00:00:00 00:00:00 [id number] 0707-06-24 2020-02-04 Outpatient Mason DUONG [facility] [address] 14421 [place] 10:15:00 23:59:00 CWANZA [facility] 2020-02-04 2020-02-04 Emergency ER [facility] Emergency [id number] [facility] 05:29:00 05:29:00 2019-12-03 2019-12-03 Emergency E ALI, BRITNI [facility] 7501 Memoria 16:11:00 19:03:00 [facility] 2019-12-03 2019-12-03 Outpatient KARISHMA, [facility] 0122 Memoria 17:00:00 18:55:00 FARID l [facility] 2019-10-12 2019-10-12 Emergency [facility] [id number] [facility] 17:06:00 17:06:00 [id number] 2019-08-25 2019-08-25 Emergency E [facility] 0013 [facility] 17:44:00 17:44:00 2016-02-13 2016-02-13 EC nullFlavo [facility] [id number] 475 Memoria 05:43:00 11:41:00 Emergency r Antonio 00 l [facility] 2016-02-13 2016-02-13 EC nullFlavo [facility] [id number] 475 Memoria 05:43:00 11:41:00 Emergency r Antonio 00 l [facility] 2016-02-13 2016-02-13 Outpatient Sravanthi [facility] [id number] 00:43:00 06:41:00 Malorie Zenia Palacios 2014-09-04 2014-09-04 EC nullFlavo [facility] [id number] 675 Memoria 07:09:00 09:15:00 Emergency r Antonio 19 l [facility] 2014-09-04 2014-09-04 EC nullFlavo [facility] [id number] Memoria 07:09:00 09:15:00 Emergency r Antonio 19 l [facility] 2014-09-04 2014-09-04 Outpatient Aldo 2.16.840. 2.16.840.1. [id number] 01:09:00 03:15:00 Tatsuo 1.626638. 102557.3.61 19 3.615.0.1 5.0.716 72 5895-01-12 2014-08-24 [facility] [id number] 675 Memoria 17:17:00 22:15:00 Emergency r [place] 18 l [facility] 2014-08-24 2014-08-24 [facility] [id number] 675 Memoria 17:17:00 22:15:00 Emergency r Antonio 18 l [facility] 2014-08-24 2014-08-24 Outpatient Aldo, 2.16.840. 2.16.840.1. [id number] 11:17:00 16:15:00 Tatsuo 1.327682. 158270.3.61 18 3.615.0.1 5.0.101 01 Results Test Description Test Time Test Comments Results Result Comments Source CBC WITH DIFF 2022-12-12 06:04:41 Test Item Value Reference Range Interpretation Comme nts WBC (test code = 6690-2) 10.43 See_Comment [A utomated message] The system which ge nerated this result transmit gaye reference range: 4.30 - 1 1.10 10*3/?L. The reference r ozzy was not used to interpr et this result as normal/abnor mal. RBC (test code = 789-8) 4.98 See_Comment [Au tomated message] The system which ge [...] 34.2 g/dL 31.6-35.1 RDW-SD (test code = 06612-9) 40.3 fL 39.0-49.9 RDW-CV (test code = 788-0) 12.5 % 12.0-15.5 PLT (test code = 777-3) 437 See_Comment H [Au tomated message] The system which ge nerated this result transmit gaye reference range: 166 - 35 8 10*3/?L. The reference range was not used to interpret th is result as normal/abnormal . MPV (test code = 65569-1) 9.9 fL 9.5-12.9 NRBC/100 WBC (test code = 0.0 See_Comment [ Automated message] The [id number]) system which ge nerated this result transmit gaye reference range: 0.0 - 10 .0 /100 WBCs. The reference r ozzy was not used to interpr et this result as normal/abnor mal. NRBC x10^3 (test code = See_Comment [Au tomated message] The [id number]) system which ge nerated this result transmit gaye reference range: 10*3/?L. The reference range was not u sed to interpret this result as normal/abnormal . SEG % (test code = 98245-9) 41 % 33-76 LYMPH % (test code = 48 % 14-54 81640-1) MONO % (test code = 57414-6) 8 % 0-4 H EOS % (test code = 17110-7) 3 % 0-3 ANC (test code = 753-4) 4.28 10*3/uL 1.88-7.09 Lab Interpretation (test Abnormal code = 88784-6) [facility]. METABOLIC PANEL (12916)2022-12-12 05:29:31 Test Item Value Reference Range Interpretation Comments NA (test code = 138 mmol/L 135-145 9718965702) K (test code = 4.3 mmol/L 3.5-5.0 2329931576) CL (test code = 106 mmol/L 98-108 9837721486) CO2 TOTAL (test code = 21 mmol/L 23-31 L 2334572434) AGAP (test code = 11 2-16 3221510501) BUN (test code = 8 mg/dL 7-23 8780261506) GLUCOSE (test code = 113 mg/dL 70-110 H 1331511797) CREATININE (test code = 0.59 mg/dL 0.50-1.04 4444709068) TOTAL BILI (test code = 1.0 mg/dL 0.1-1.0 3259650200) CALCIUM (test code = 9.3 mg/dL 8.6-10.6 2266041185) T PROTEIN (test code = 7.3 g/dL 6.3-8.2 0028758685) ALBUMIN (test code = 4.3 g/dL 3.5-5.0 4097269266) ALK PHOS (test code = 59 U/L 34-122 6331844824) ALTv (test code = 25 U/L 5-35 2-6) AST(SGOT) (test code = 24 U/L 13-40 1571731452) eGFR (test code = 108.3 mL/min/1.73m2 7825876005) CIRO (test code = CIRO) Association of [...] tests). Lab Interpretation Abnormal (test code = 58817-3) [facility] 05[facility]29[facility]31 Test Item Value Reference Range Interpretation Comments LIPASE (test code = 9967430832) 133 U/L 0-220 Lab Interpretation (test code = Normal 47344-7) [facility] [id number] 23:18:00 Test Item Value Reference Range Interpretation Comments POCT PREG (test code = 1605) Negative On board controls acceptable with Present C Line (test code = 3574) POCT PREG LOT # (test code = 3577) [id number] POCT PREG TEST DATE (test 05-18-2024 code = 3576) Lab Interpretation (test code = Normal 99738-0) [facility] (NA, K, CL, CO2, GLUCOSE, BUN, CREATININE, CA)2022-11-27 20:08:10 Test Item Value Reference Range Interpretation Comments NA (test code = 138 mmol/L 135-145 8591411258) K (test code = 4.7 mmol/L 3.5-5.0 2876931378) CL (test code = 104 mmol/L 98-108 2311685922) CO2 TOTAL (test code = 21 mmol/L 23-31 L 3140125187) AGAP (test code = 13 2-16 1923916633) BUN (test code = 6 mg/dL 7-23 L 9142263643) GLUCOSE (test code = 98 mg/dL 70-110 8055407794) CREATININE (test code = 0.55 mg/dL 0.50-1.04 8674324657) CALCIUM (test code = 9.0 mg/dL 8.6-10.6 2520668914) eGFR (test code = 117.5 mL/min/1.73m2 4862554058) CIRO (test code = CIRO) Association of [...] tests). Lab Interpretation Abnormal (test code = 09069-9) [facility] WITH [id number] 19:53:46 Test Item Value Reference Range Interpretation Comments WBC (test code = 9.87 See_Comment [Automated 9988-2) message] The sy stem which generated this result transmitted reference range : 4.30 - 11.10 10*3/?L. The reference range was not used to interpret this result as normal/abnormal . RBC (test code = 4.86 See_Comment [Automated 218-8) message] The sy stem which generated this [...] RDW-SD (test code = 41.0 fL 39.0-49.9 49472-1) RDW-CV (test code = 12.8 % 12.0-15.5 788-0) PLT (test code = 399 See_Comment H [Automated 777-3) message] The sy stem which generated this result transmitted reference range : 166 - 358 10*3/ ?L. The reference r ozzy was not used to interpret this result as normal/abnormal . MPV (test code = 9.6 fL 9.5-12.9 64205-6) NRBC/100 WBC (test 0.0 See_Comment [Automat ed code = 5028126654) message] The system which generated this result transmitted reference range : 0.0 - 10.0 /100 WBCs. The refer ence range was not u sed to interpret th is result as normal/abnormal . NRBC x10^3 (test code See_Comment [Auto mated = 0951056378) message] The s ystem which generated this result transmitted reference range : 10*3/?L. The reference range was not used to interpret this result as normal/abnormal . GRAN MAT (NEUT) % 57.8 % (test code = 770-8) IMM GRAN % (test code 0.70 % = 5699860122) LYMPH % (test code = 32.4 % 736-9) MONO % (test code = 5.2 % 5905-5) EOS % (test code = 3.0 % 713-8) BASO % (test code = 0.9 % 706-2) GRAN MAT x10^3(ANC) 5.70 10*3/uL 1.88-7.09 (test code = 5298085324) IMM GRAN x10^3 (test 0.07 10*3/uL 0.00-0.06 H code = 5628239468) LYMPH x10^3 (test code 3.20 10*3/uL 1.32-3.29 = 731-0) MONO x10^3 (test code 0.51 10*3/uL 0.33-0.92 = 742-7) EOS x10^3 (test code = 0.30 10*3/uL 0.03-0.39 711-2) BASO x10^3 (test code 0.09 10*3/uL 0.01-0.07 H = 704-7) Lab Interpretation Abnormal (test code = 49007-3) [facility] TEST, [id number] 04:20:10 Test Item Value Reference Range Interpretation Comments PREG SERUM (test code Negative = 8082268580) CIRO (test code = CIRO) Less than 10 IU/L. ?If low titer or ectopic is suspected, resubmit specimen in 48-72 hours. [facility] CampusTROPONIN [id number] 03:49:08 Test Item Value Reference Interpretation Comments Range TROPONIN I (test 0.001 ng/mL See_Comment [Automated code = 6538388739) message] The system which generated this result [...] biotin. Lab Interpretation Normal (test code = 63864-5) [facility]. METABOLIC PANEL (47053)2022-08-15 03:37:26 Test Item Value Reference Range Interpretation Comments NA (test code = 138 mmol/L 135-145 7532299965) K (test code = 3.6 mmol/L 3.5-5.0 6790482073) CL (test code = 105 mmol/L 98-108 8367220305) CO2 TOTAL (test code 24 mmol/L 23-31 = 6019938909) AGAP (test code = 2-16 0559092434) BUN (test code = 9 mg/dL 7-23 0850265373) GLUCOSE (test code = 105 mg/dL 70-110 7458747602) CREATININE (test code 0.75 mg/dL 0.50-1.04 = 3445169375) TOTAL BILI (test code 0.6 mg/dL 0.1-1.1 = 1403749017) CALCIUM (test code = 8.7 mg/dL 8.6-10.6 9445316461) T PROTEIN (test code 6.7 g/dL 6.3-8.2 = 2326814354) ALBUMIN (test code = 3.9 g/dL 3.5-5.0 6923821075) ALK PHOS (test code = 69 U/L 34-122 8295381462) ALTv (test code = 35 U/L 5-35 2-6) AST(SGOT) (test code 27 U/L 13-40 = 1754004157) eGFR (test code = mL/min/1.73m2 1999099255) CIRO (test code = CIRO) Association of [...] or urine or abnormalities in imaging tests). [facility] WITH [id number] 03:25:05 Test Item Value Reference Range Interpretation [...] RDW-SD (test code = 41.3 fL 39.0-49.9 84511-9) RDW-CV (test code = 12.5 % 12.0-15.5 788-0) PLT (test code = See_Comment H [Automated 777-3) message] The sy stem which generated this result transmitted reference range : 166 - 358 10*3/ ?L. The reference r ozzy was not used to interpret this result as normal/abnormal . MPV (test code = 9.4 fL 9.5-12.9 L 50699-5) NRBC/100 WBC (test See_Comment [Automat ed code = 1853478831) message] The system which generated this result transmitted reference range : 0.0 - 10.0 /100 WBCs. The refer ence range was not u sed to interpret th is result as normal/abnormal . NRBC x10^3 (test code See_Comment [Auto mated = 0193352038) message] The s ystem which generated this result transmitted reference range : 10*3/?L. The reference range was not used to interpret this result as normal/abnormal . GRAN MAT (NEUT) % 55.2 % (test code = 770-8) IMM GRAN % (test code 0.50 % = 9975451429) LYMPH % (test code = 30.7 % 736-9) MONO % (test code = 6.4 % 5905-5) EOS % (test code = 6.2 % 713-8) BASO % (test code = 1.0 % 706-2) GRAN MAT x10^3(ANC) 5.54 10*3/uL 1.88-7.09 (test code = 3423185793) IMM GRAN x10^3 (test 0.05 10*3/uL 0.00-0.06 code = 1768032420) LYMPH x10^3 (test code 3.08 10*3/uL 1.32-3.29 = 731-0) MONO x10^3 (test code 0.64 10*3/uL 0.33-0.92 = 742-7) EOS x10^3 (test code = 0.62 10*3/uL 0.03-0.39 H 711-2) BASO x10^3 (test code 0.10 10*3/uL 0.01-0.07 H = 704-7) Lab Interpretation Abnormal (test code = 61747-2) [facility] CampusLevetiracetam [id number] 14:27:33 Test Item Value Reference Interpretation Comments Range Levetiracetam (test <2.0 mcg/mL L Referen ce Range: code = 3751057) 12.0-46.0 To xic level is not we ll established. Interpretation should include a clinical evalua tion. For additional information, pl ease refer tohttp://educat ion.[employer] .[employer]/ faq/DHX433(This link is being provid ed forinformationa l/edu cational purpos es only.) This jose t was developed and i ts analytical performance characteristics have been determined by [employer]. It has not been cleared or appr christiano by theFDA. This assay has been validated pursu ant to the CLIA regulations and is used for clinic al purposes. CIRO (test code = Performing Lab CIRO) *GAGANDEEP [facility] [facility], [address] [place] [address] Parminder Szymanski MD Lab Interpretation Abnormal (test code = 88641-5) [facility]et[facility] [id number] 14:27:33 Test Item Value Reference Interpretation Comments Range Levetiracetam (test <2.0 mcg/mL L Referen ce Range: code = 4639974) 12.0-46.0 To xic level is not we ll established. Interpretation should include a clinical evalua tion. For additional information, pl ease refer tohttp://educat ion.[employer] .[employer]/ faq/ZCS270(This link is being provid ed forinformationa l/[facility] es only.) This jose t was developed and i ts analytical performance characteristics have been determined by [employer]. It has not been cleared or appr christiano by theFDA. This assay has been validated pursu ant to the CLIA regulations and is used for clinic al purposes. CIRO (test code = Performing Lab CIRO) *GAGANDEEP [facility], [address] [place] [address] Parminder Szymanski MD Lab Interpretation Abnormal (test code = 22235-5) [facility] CenterCT, BRAIN, WITHOUT [id number] 23:05:00 Unlisted Reason for Exam - Click Yes and Enter Reason Below->No [facility] 1975 Sex: [...] Date/Time: 05/05/2021 23:05:29 CT, SPINE, CERVICAL, WO [id number] 23:05:00Unlisted Reason for Exam - Click Yes and Enter Reason Below->No [facility] 1975 Sex: [...] Asencio MDReport Verified Date/Time: 05/05/2021 23:05:29 Troponin [id number] 21:22:45 Test Item Value Reference Range Interpretation Comments Troponin I (test code = <0.03 0.00-0.15 33241-4) CIRO (test code = CIRO) Troponin I [...] THELMA Lab Interpretation (test Normal code = 32595-0) [facility] [id number] 21:22:45 Test Item Value Reference Range Interpretation Comments Troponin I (test code = <0.03 0.00-0.15 21794-2) CIRO (test code = CIRO) Troponin I [...] THELMA Lab Interpretation (test Normal code = 34022-2) [facility] [id number] 21:22:45 Test Item Value Reference Range Interpretation [...] failure, acidosis, acute neurological disease, and persistent tachyarrhythmia.Contracting Analyst ID - JUSTINComprehensive metabolic [id number] 21:20:36 Test Item Value Reference Interpretation Comments Range Protein, Total (test 7.5 See_Comment Specime n code = 2885-2) slightly hemolyzed [Automated message] The system which generated this result transmitted reference range : 6.0 - 8.5 gm/dL . The reference range was not used to interpret this result as normal/abnormal . Albumin (test code = 4.1 g/dL 3.5-5.0 [place]ime n 21700-0) slightly hemolyzed Alkaline Phosphatase 72 U/L 30-115 (test code = 6768-6) Total Bilirubin 1.0 mg/dL 0.1-1.2 Specimen (test code = 1975-2) slightl y hemolyzed Sodium (test code = 141 meq/L 390-674 6969-2) Potassium (test code 3.8 meq/L 3.6-5.5 Specime n = 2823-3) slightly hemolyzed Chloride (test code 104 meq/L 98-106 = 2075-0) CO2 (test code = 24 meq/L 20-29 8-9) BUN (test code = 7 mg/dL 10-26 L 3094-0) Creatinine (test 0.81 mg/dL 0.50-1.20 Specimen code = 2160-0) slightly hemolyzed Glucose (test code = 92 mg/dL 70-110 2345-7) Calcium (test code = 9.4 mg/dL 8.5-10.5 37183-6) AST (test code = 21 U/L 5-40 Specimen 1920-8) slightly hemolyzed ALT (test code = 27 U/L 5-50 Specimen 1742-6) slightly hemolyzed EGFR (test code = 76 mL/min/1[place]73 [place] [address]-2) m NOT ACCURATE CREATININE CLEARANCE IN PREDICTING GLOMERULAR FILTRATION RATE . ESTIMATED GFR I S NOT APPLICABLE FOR DIALYSIS PATIENTS. CIRO (test code = Contracting Analyst ID - CIRO) JUSTINOperator ID - JUSTINOperator [...] THELMA Lab Interpretation Abnormal (test code = 49728-3) [facility] CenterCom[facility] [id number] 21:20:36 Test Item Value Reference Interpretation Comments Range Protein, Total (test 7.5 See_Comment Specime n code = 2885-2) slightly hemolyzed [Automated message] The system which generated this result transmitted reference range : 6.0 - 8.5 gm/dL . The reference range was not used to interpret this result as normal/abnormal . Albumin (test code = 4.1 g/dL 3.5-5.0 [place] n [address]-4) slightly hemolyzed Alkaline Phosphatase 72 U/L 30-115 (test code = 6768-6) Total Bilirubin 1.0 mg/dL 0.1-1.2 Specimen (test code = 1974-2) slightl y hemolyzed Sodium (test code = 141 meq/L 779-106 7236-2) Potassium (test code 3.8 meq/L 3.6-5.5 Specime n = 2823-3) slightly hemolyzed Chloride (test code 104 meq/L 98-106 = 2075-0) CO2 (test code = 24 meq/L 20-29 8-9) BUN (test code = 7 mg/dL 10-26 L 3094-0) Creatinine (test 0.81 mg/dL 0.50-1.20 Specimen code = 2160-0) slightly hemolyzed Glucose (test code = 92 mg/dL 70-110 2345-7) Calcium (test code = 9.4 mg/dL 8.5-10.5 00051-5) AST (test code = 21 U/L 5-40 Specimen 1920-8) slightly hemolyzed ALT (test code = 27 U/L 5-50 Specimen 1742-6) slightly hemolyzed EGFR (test code = 76 mL/min/1[place] [address]-7) m NOT ACCURATE CREATININE CLEARANCE IN PREDICTING GLOMERULAR FILTRATION RATE . ESTIMATED GFR I S NOT APPLICABLE FOR DIALYSIS PATIENTS. CIRO (test code = Contracting Analyst ID - CIRO) JUSTINOperator ID - JUSTINOperator [...] THELMA Lab Interpretation Abnormal (test code = 05848-9) [facility] CenterCOMPREHENSIVE METABOLIC [id number] 21:20:36 Test Item Value Reference Range Interpretation [...] S NOT APPLICABLE FOR DIALYSIS PATIEN TS. Contracting Analyst ID - JUSTINOperator ID - JUSTINOperator ID - JUSTINOperator ID - JUSTINOperator ID - JUSTINOperator ID - JUSTINOperator ID - JUSTINOperator ID - JUSTINOperator ID - JUSTINOperator ID - JUSTINOperator ID - JUSTINOperator ID - JUSTINOperator ID - JUSTINOperator ID - JUSTINOperator ID - JUSTINOperator ID - JUSTINOperator ID - JUSTINOperator ID - JUSTINOperator ID - JUSTINCBC with platelet count + automated [id number] 20:51:36 Test Item Value Reference Range Interpretation Comments WBC (test code = 6690-2) 12.0 See_Comment H [A utomated message] The system [employer] generated this result transmitted ref erence range: 4.0 - 10 .0 K/L. The refe rence range was not u sed to interpret this result as normal/abnor mal. RBC (test code = 789-8) 4.84 See_Comment [Au tomated message] The system [employer] generated this result transmitted ref erence range: 4.00 - 5 .00 M/L. The refe rence range was not u sed to interpret this result as normal/abnor mal. MCHC (test code = 786-4) 34.8 See_Comment [A utomated message] The system [employer] generated this result transmitted ref erence range: [...] H [Aut omated message] 777-3) The system [employer] generated this result transmitted ref erence range: 150 - 43 0 K/CU MM. The referen ce range was not u sed to interpret this result as normal/abnor mal. MPV (test code = 9.7 fL 6.0-11.5 75333-7) nRBC (test code = 413) 0 See_Comment [Aut omated message] The system [employer] generated this result transmitted ref erence range: [...] See_Comment [Aut omated message] 670) The system [employer] generated this result transmitted ref erence range: 1.80 - 8 .00 K/L. The refe rence range was not u sed to interpret this result as normal/abnor mal. # Lymphs (test code = 3.61 See_Comment [Auto mated message] 414) The system [employer] generated this result transmitted ref erence range: 1.48 - 4 .50 K/L. The refe rence range was not u sed to interpret this result as normal/abnor mal. # Monos (test code = 0.86 See_Comment [Autom ated message] 415) The system [employer] generated this result transmitted ref erence range: 0.00 - 1 .30 K/L. The refe rence range was not u sed to interpret this result as normal/abnor mal. # Eos (test code = 416) 0.41 See_Comment [Au tomated message] The system [employer] generated this result transmitted ref erence range: 0.00 - 0 .50 K/L. The refe rence range was not u sed to interpret this result as normal/abnor mal. # Baso (test code = 417) 0.10 See_Comment [A utomated message] The system [employer] generated this result transmitted ref erence range: 0.00 - 0 .20 K/L. The refe rence range was not u sed to interpret this result as normal/abnor mal. Immature 0 % 0-0 Granulocytes-Relative (test code = 2801) Lab Interpretation (test Abnormal code = 81879-9) [facility] with platelet count + automated [id number] 20:51:36 Test Item Value Reference Range Interpretation Comments WBC (test code = 6690-2) 12.0 See_Comment H [A utomated message] The system [employer] generated this result transmitted ref erence range: 4.0 - 10 .0 K/L. The refe rence range was not u sed to interpret this result as normal/abnor mal. RBC (test code = 789-8) 4.84 See_Comment [Au tomated message] The system [employer] generated this result transmitted ref erence range: 4.00 - 5 .00 M/L. The refe rence range was not u sed to interpret this result as normal/abnor mal. MCHC (test code = 786-4) 34.8 See_Comment [A utomated message] The system [employer] generated this result transmitted ref erence range: [...] H [Aut omated message] 777-3) The system [employer] generated this result transmitted ref erence range: 150 - 43 0 K/CU MM. The referen ce range was not u sed to interpret this result as normal/abnor mal. MPV (test code = 9.7 fL 6.0-11.5 45448-8) nRBC (test code = 413) 0 See_Comment [Aut omated message] The system [employer] generated this result transmitted ref erence range: [...] See_Comment [Aut omated message] 670) The system [employer] generated this result transmitted ref erence range: 1.80 - 8 .00 K/L. The refe rence range was not u sed to interpret this result as normal/abnor mal. # Lymphs (test code = 3.61 See_Comment [Auto mated message] 414) The system [employer] generated this result transmitted ref erence range: 1.48 - 4 .50 K/L. The refe rence range was not u sed to interpret this result as normal/abnor mal. # Monos (test code = 0.86 See_Comment [Autom ated message] 415) The system [employer] generated this result transmitted ref erence range: 0.00 - 1 .30 K/L. The refe rence range was not u sed to interpret this result as normal/abnor mal. # Eos (test code = 416) 0.41 See_Comment [Au tomated message] The system [employer] generated this result transmitted ref erence range: 0.00 - 0 .50 K/L. The refe rence range was not u sed to interpret this result as normal/abnor mal. # Baso (test code = 417) 0.10 See_Comment [A utomated message] The system [employer] generated this result transmitted ref erence range: 0.00 - 0 .20 K/L. The refe rence range was not u sed to interpret this result as normal/abnor mal. Immature 0 % 0-0 Granulocytes-Relative (test code = 2801) Lab Interpretation (test Abnormal code = 56841-1) [facility] W/PLT COUNT & AUTO [id number] 20:51:36 Test Item Value Reference Range Interpretation [...] (BEAKER) (test code = 2801) Continuous EEG ozmjpvqexr0148-10-41 01:51:44CONTINUOUS VIDEO-EEG MONITORING REPORT - END OF STUDY [id number] Date of : 1975 Initial Study Start [...] seizures captured. Onelia Hair MD ICD-10 Code: W396Pmzuuussct EEG xglvqofisv8209-16-05 12:59:42 CONTINUOUS VIDEO-EEG MONITORING REPORT Patient [id number] Date of : 1975 Initial Study Start date: 12/04/2020Initial Study Start Time: 08: Current Study Start Date: 12/04/2020urrent Study Start [...] seizures captured. Onelia Hair MD ICD-10 Code: R757IIM 12 lewg1418-55-40 05:31:10 Test Item Value Reference Range Interpretation Comments Ventricular rate (test code = 253) Atrial rate (test code = 255) VT interval (test code = 266) QRSD interval [...] 04:27,-Vent. rate has increased BY 62 BPM- [facility] 12 [id number] 05:31:10 Test Item Value Reference Range Interpretation Comments Ventricular rate (test code = 253) Atrial rate (test code = 255) VT interval (test code = 266) QRSD interval [...] 04:27,-Vent. rate has increased BY 62 BPM- [facility] 12 [id number] 05:31:10 Test Item Value Reference Range Interpretation Comments Ventricular rate (test code = 253) Atrial rate (test code = 255) VT interval (test code = 266) QRSD interval [...] [facility] (routine) - Baseline [id number] 01:47:11VIDEO-EEG RECORDING AWAKE & ASLEEP - Baseline [...] dominant alpha rhythm of 9 hertz, that isreactive to eye opening. With drowsiness, there is the expected attenuation of the posterior dominant rhythm. During sleep, there is the emergence of normal sleep architecture including symmetric and well-defined sleep spindles and K complexes noted. Hyperventilation: was not performedPhotic stimulation: was not performed Interictal: There are no epileptiform discharges or seizures captured. Impressio n:This is a normal Video-EEG study. There are no lateralizing or focal features, epileptiform discharges or seizures captured. Onelia Hair MD ICD-10 Code: R569CT Head Wo Mgobvaxq0199-91-85 02:53:14EXAMINATION: CT HEAD WO CONTRAST CLINICAL HISTORY: [...] No CT evidence of acute intracranial abnormality. [id number] Interface, Radiology Results Incoming - 12/03/2020 9:56 [...] IMPRESSION:1. No CT evidence of acute intracranial abnormality.[id number] WrnduxuoFNAD-LqC-1 (COVID-19) RNA [Presence] in Respiratory specimen by SOREN with probe detection 2020-12-04 02:03:42 Test Item Value Reference Range Interpretation Comments SARS-CoV-2 (COVID-19) RNA Not detected Not-Detected [Presence] in Respiratory specimen by SOREN with probe detection (test code = 23707-5) Whether patient is employed in a healthcare setting (test code = 19537-1) Whether the patient has symptoms related to condition of interest (test code = 86973-3) Patient was hospitalized because of this condition (test code = 71036-9) Whether the patient was admitted to intensive care unit (ICU) for condition of interest (test code = 24693-8) Whether patient resides in a congregate care setting (test code = 59792-9) [facility] 1 Vw [id number] 23:58:22EXAMINATION: XR CHEST 1 VW PORTABLE CLINICAL [...] no consolidation or effusion.3.The bones are intact.1D2RAD_P Z58UfxcqlmqvB[facility] [id number] 21:55:13Bladimir Brumfield MD 12/04/2020 3:12 PMCritical CarePerformed by: Bladimir Brumfield MDAuthorized by: Bladimir Cisse MD Critical care provider statement: Critical care time (minutes): 35 Critical caretime was exclusive of: Separately billable procedures and treating other patients Critical care was necessary to treat or prevent imminent or life-threatening deterioration of the following conditions: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 Critical care was [...] care for this patient from another provider.: [facility] ED Preliminary Interpretation - Not an [id number] 21:55:13 Bladimir Brumfield MD 12/04/2020 3:12 [facility] [place] Preliminary Interpretation - Not an OrderPerformed by: Bladimir Brumfield MDAuthorized by: Bladimir Brumfield MD ECG reviewed by ED Physician in the absence of a community engagement coordinator: yes Rate: ECG rate: 119Rhythm: Rhythm: sinus tachycardia Ectopy: Ectopy: none QRS: QRS axis: Normal QRS intervals: NormalConduction: Conduction: normal ST segments: ST segments: NormalT waves: T [facility] [id number] 01:10:19 Test Item Value Reference Range Interpretation Comments Urine culture (test SEE COMMENT Bacteriu mario screen code = 8076108) negative. [facility] cvxpzwx9481-32-34 01:10:19 Test Item Value Reference Range Interpretation Comments Urine culture (test SEE COMMENT Bacteriu mario screen code = 5297816) negative. [facility] hwejphz8183-12-67 01:10:19 Test Item Value Reference Range Interpretation Comments Urine culture (test SEE COMMENT Bacteriu mario screen code = 5556873) negative. [facility][U] XRAY HAND MIN 3 VWS RIGHT [id number] 15:17:00Images acquired, not reported on this accession number.[facility]XR Hand 3+ Vw Right 2020-11-03 04:37:16EXAMINATION: XR HAND 3 VW RIGHT INDICATION: dog bite COMPARISON: None IMPRESSION: 3 views of the right hand were obtained.No visible acute fracture or dislocation.No visible radiodense foreign material. [facility]- MPHYMATHm Interface, Radiology Results Incoming - 11/02/2020 11:40 PM CDT EXAMINATION: XR HAND 3 VW RIGHTINDICATION: dog biteCOMPARISON: NoneIMPRESSION:3 views of the right hand were obtained.No visible acute fracture or dislocation.No visible radiodense foreign material.[facility]MATMethod[facility]EEG (routine) 2020-09-17 16:59:35Date of Study Completion: [...] movements noted on this tracing by the biofuels production technician did not have an epileptic correlate. [...] in Respiratory specimen by SOREN with probe [id number] 00:31:49 Test Item Value Reference Range Interpretation Comments SARS-CoV-2 (COVID-19) RNA Not detected Not-Detected [Presence] in Respiratory specimen by SOREN with probe detection (test code = 81970-1) [facility] (routine)2020-09-11 20:16:18Date of Service: [...] in Respiratory specimen by SOREN with probe [id number] 07:15:55 Test Item Value Reference Range Interpretation Comments SARS-CoV-2 (COVID-19) RNA Not detected Not-Detected [Presence] in Respiratory specimen by SOREN with probe detection (test code = 54471-9) [facility] Abdomen Pelvis Wo [id number] 05:45:01EXAMINATION: CT ABDOMEN PELVIS WO CONTRAST HISTORY: [...] No bowel obstruction. [id number] Interface, Radiology Results [facility] - 09/10/2020 11:48 PM CST EXAMINATION: CT [...] No high grade enterocolitis. No bowel obstruction.1D2RA D_PS02[facility] CenterDlywbiqgXVVA-GtE-8 (COVID-19) RNA [Presence] in Respiratory specimen by SOREN with probe [id number] 05:23:42 Test Item Value Reference Range Interpretation Comments SARS-CoV-2 (COVID-19) RNA Not detected Not-Detected [Presence] in Respiratory specimen by SOREN with probe detection (test code = 94982-5) [facility] CONROETransthoracic Echocardiogram Complete, (w Contrast, Strain and 3D if needed)2020-05-11 04:52:19 Test Item Value Reference Range Interpretation Comments Velocity Ratio (V1/V2) 0.85 m/s (test code = 4689) IVS,d (test code = 1.00 cm 1677875467) EF (test code = 52.31 % 6052271485) Ascending aorta (test 2.67 cm code = 8122028043) LVPWD,d (test code = 1.00 cm 2125818349) AoV Mean PG (test code mmHg = 5424327757) AV LVOT peak gradient mmHg (test code = 4095087105) MV mean gradient (test mmHg code = 6256058337) MV valve area p 1/2 3.31 cm2 method (test code = 1107683540) PV Pk Grad (test code = mmHg 4612167948) E/A ratio (test code = 1183114437) E wave decelartion time msec (test code = 7116570036) LVOT Diam,S (test code 1.98 cm = 7640907693) LVOT area (test code = 3.08 cm2 8198607485) LVOT Vmax (test code = 0.96 m/s 6469898196) LVOT VTI (test code = 0.21 m 5147738702) RVOT Vmax (test code = 0.58 m/s 0484369244) AoV Peak PG (test code mmHg = 7396523367) MV Peak E Giuliano (test 0.94 m/s code = 5042024826) MV stenosis pressure 66.39 ms 1/2 time (test code = 6218090553) MV Peak A Giuliano (test 0.74 m/s code = 7889731854) Ao Root Diameter (test 2.99 cm code = 1581779456) AoV Area, Vmax (test 2.60 cm2 code = 5941520317) AoV Area, VTI (test 2.95 cm2 code = 3661456006) AoV Vmax (test code = 1.13 m/s 1879376814) IVS/LVPW,2D (test code = 9772755949) Left Atrium Dimension 3.10 cm Anterior (test code = 3484671053) LV,d (test code = 4.15 cm 2379288150) LV,s (test code = 3.05 cm 2212505991) PV VMAX (test code = 0.78 m/s 4915790766) TR Vpeak (test code = 1.85 mm/s 4717368845) MV E A ratio (test code = 4657612571) TR pk grad (test code = mmHg 4856454172) MR peak grad (test code mmHg = 7437225219) Ao Root Diameter (test 2.99 cm code = 8337291419) LV SYS VOL (test code = 36.41 ml 0529487681) LV RIOS VOL (test code 76.34 ml = 3529756080) LV SV Teich 2D (test 39.93 ml code = 3322226396) LV Vol s Teich PSAX 36.41 ml (test code = 0027480213) MV Vmax (test code = 0.89 m 6900413541) MV VTI Tips (test code 0.22 m = 5960511014) RVOT pk grad (test code mmHg = 4929258421) AoV Vmn (test code = 9519206392) LV FS Cube 2D (test code = 8720567814) LV FS Teich 2D (test code = 2120567194) AoV VTI (test code = 0.22 m 0132675489) LA Area d A4C (test 12.41 cm2 code = 2223093868) LV EF,2D (test code = 60.32 % 2596314265) MR Vmax (test code = 4.15 m/s 0707951411) MV AE ratio (test code = 3636158839) LVOT Vmn (test code = 1396758409) Aov area Vmn (test code 2.47 cm2 = 1439505804) LA Vol d MOD A4C (test 27.63 ml code = 0034761166) LVOT mean grad (test mmHg code = 7873494782) MAX Pred HR (test code = 5613804515) 85 of MPHR (test code = 5193704878) Calc MPHR (test code = bpm 6943151788) LV SV Cube 2D (test 43.08 ml code = 9545960782) LV vol d cube 2D (test 71.42 ml code = 6443739517) LV vol s cube 2D (test 28.34 ml code = 6488500957) MV Decel slope (test 4.12 m/s2 code = 2785863929) Pred Exer Dur R1 (test code = 0525228550) Pred METS R1 (test code = 2093257827) CIRO (test code = CIRO) Left Ventricle: [...] regurgitation. No evidence of aortic valve stenosis. [facility] duplex venous upper [id number] 06:14:50 EXAMINATION: US DUPLEX VENOUS UPPER EXTREMITY [...] visualized veins of the right upper extremity. [facility]- [id number] Interface, Radiology Results 05/08/2020 1:17 AM CDT [...] the visualized veins of the right upper extremity.[facility]-[id number] (routine)2020-05-07 22:01:23Date of Service: May 07, 2020.Date [...] a diagnosis of epilepsy.MRI Brain W Wo [id number] 03:27:20EXAMINATION: MRI BRAIN W WO CONTRAST CLINICAL [...] suspicious pericallosal lesions with a perivenular morphology.1M2RAD_PS01[facility] ([facility]) RNA [Presence] in Respiratory specimen by SOREN with probe [id number] 12:31:16 Test Item Value Reference Range Interpretation Comments SARS-CoV-2 (COVID-19) RNA Not detected Not-Detected [Presence] in Respiratory specimen by SOREN with probe detection (test code = 39892-7) [facility]) 2020-02-22 21:37:00 Test Item Value Reference Range Interpretation Comments SARS-COV2/RT-PCR (test code = Positive Not Detected, Negative A A 2012145) SARS-COV-2 PERFORMING LAB CPL (test code = 5448529) CT, CHEST, WITHOUT [id number] 00:54:00Reason for exam:->cough, ?covidIs the patient ?->NoWhat [...] MDReport Verified Date/Time: 02/21/2020 00:54:38 PREGNANCY SCREEN, [id number] 00:28:00 Test Item Value Reference Range Interpretation Comments TEST URINE (BEAKER) (test Negative code = 583) CBC W/PLT COUNT & AUTO [id number] 22:46:00 Test Item Value Reference Range Interpretation [...] (BEAKER) (test code = 2801) LACTIC ACID, [id number] 22:30:00 Test Item Value Reference Range Interpretation Comments LACTATE BLOOD VENOUS 1.38 mmol/L 0.50-2.00 Specime n slightly (2) (BEAKER) (test hemolyzed code = 5773) Contracting Analyst ID - JUSTINBASIC METABOLIC [id number] 22:10:00 Test Item Value Reference Range Interpretation [...] S NOT APPLICABLE FOR DIALYSIS PATIEN TS. Contracting Analyst ID - [id number] 22:09:00 Test Item Value Reference Range Interpretation [...] failure, acidosis, acute neurological disease, and persistent tachyarrhythmia.Contracting Analyst ID - [id number], CHEST, 1 VIEW, NON [id number] 20:58:00Reason for exam:->coughIs the patient ?- >NoShould [...] = Positive Not Detected, Negative A A 5309104) SARS-COV-2 PERFORMING LAB CPL (test code = 3899944) URINALYSIS W/ [id number] 08:24:00 Test Item Value Reference Range Interpretation [...] 1663) SOURCE(BEAKER) (test code = 2795) SCREEN, [id number] 08:00:00 Test Item Value Reference Range Interpretation Comments TEST URINE (BEAKER) (test Negative code = 583) RAD, ABDOMEN/KUB 1 VIEW [id number] 07:21:00Reason for exam:->FEVERReason for exam:->DIARRHEAReason for exam:->EMESISFINAL REPORT RAD, ABDOMEN/KUB 1 VIEW AP CLINICAL INDICATION: FEVERDIARRHEAEMESIS COMPARISON: None TECHNIQUE: Single, frontal radiograph of the abdomen. FINDINGS: The bowel gas pattern is nonspecific, but nonobstructive. IUD is present. The regional skeleton is intact. IMPRESSION: Nonspecific, nonobstructive bowel gas pattern. Signed: Ling Jin Verified Date/Time: 02/04/2020 07:21:42 Reading Location: [facility] Radiology Reading Room COMPREHENSIVE METABOLIC [id number] 07:14:00 Test Item Value Reference Range Interpretation [...] S NOT APPLICABLE FOR DIALYSIS PATIEN TS. Contracting Analyst ID - [id number] 06:59:00 Test Item Value Reference Range Interpretation Comments LIPASE (BEAKER) (test code = 749) 9 U/L 6-51 Contracting Analyst ID - ROSAURAZALEZCBC W/PLT COUNT & AUTO [id number] 06:41:00 Test Item Value Reference Range Interpretation [...] (test code = 2801) RAPID INFLUENZA A&B [id number] 19:09:00 Test Item Value Reference Range Interpretation Comments RAPID INFLUENZA A AG (BEAKER) Negative Negative, Inconclusive (test code = 1622) RAPID INFLUENZA B AG (BEAKER) Negative Negative, Inconclusive (test code = 1623) TROPONIN [id number] 18:51:00 Test Item Value Reference Range Interpretation [...] failure, acidosis, acute neurological disease, and persistent tachyarrhythmia.Contracting Analyst ID - JUSTINPREGNANCY SCREEN, [id number] 18:49:00 Test Item Value Reference Range Interpretation Comments TEST URINE (BEAKER) (test Negative code = 583) URINALYSIS W/ [id number] 18:49:00 Test Item Value Reference Range Interpretation [...] SOURCE(BEAKER) (test code = 2795) BASIC METABOLIC [id number] 18:44:00 Test Item Value Reference Range Interpretation [...] S NOT APPLICABLE FOR DIALYSIS PATIEN TS. Contracting Analyst ID - GORDON CHEST, 1 VIEW, NON [id number] 18:41:00Reason for exam:->COUGHReason for exam:->SHORTNESS OF BREATHReason [...] on10/12/2019 06:41 PMCBC W/PLT COUNT & AUTO [id number] 18:29:00 Test Item Value Reference Range Interpretation [...] PERCENT (BEAKER) (test code = 2801) CT, [id number] 16:47:00Reason for exam:->FEVERReason for exam:->LEG PAINIs the [...] MDReport Verified Date/Time: 02/15/2019 16:47:32 Reading Location: [address] Reading Room URINALYSIS W/ [id number] 15:41:00 Test Item Value Reference Range Interpretation [...] 1663) SOURCE(BEAKER) (test code = 2795) SCREEN, [id number] 15:29:00 Test Item Value Reference Range Interpretation Comments TEST URINE (BEAKER) (test Negative code = 583) COMPREHENSIVE METABOLIC [id number] 15:26:00 Test Item Value Reference Range Interpretation [...] S NOT APPLICABLE FOR DIALYSIS PATIEN TS. [id number] 15:26:00 Test Item Value Reference Range Interpretation Comments LIPASE (BEAKER) (test code = 749) 20 U/L 6-51 [id number] 15:17:00 Test Item Value Reference Range Interpretation Comments AMYLASE (BEAKER) (test 42 U/L 30-110 Speci men slightly code = 349) hemolyzed CBC W/PLT COUNT & AUTO [id number] 15:03:00 Test Item Value Reference Range Interpretation [...] = 2801) RAD, KNEE, COMPLETE (4 VIEWS), [id number] 23:20:00Reason for exam:->MOTOR VEHICLE CRASHReason for exam:->HIP [...] MDReport Verified Date/Time: 11/19/2018 23:20:49 Reading Location: [facility] C013Y CT Body Reading Room RAD, KNEE, COMPLETE (4 VIEWS), [id number] 23:20:00Reason for exam:- >MOTOR VEHICLE CRASHReason for [...] Friedmanort Verified Date/Time: 11/19/2018 23:20:49 Reading Location: [facility] C013Y CT Body Reading Room RAD, HIP, 2 VIEWS, [id number] 23:06:00Reason for exam:->MOTOR VEHICLE CRASHReason for exam:->HIP PAINReason for exam:->ARM INJURYReason for exam:->SHOULDER INJURYFINAL REPORT Right hip series, 2 views Clinical Indication: Right Hip Pain Impression: No evidence of acute fracture or traumatic malalignment. Note: If occult injury is suspected,consider CT. Signed: Brian Garibay Verified Date/Time: 11/19/2018 23:06:27 Reading Location:[address] Reading Room CT, [id number] 22:44:00Reason for exam:->MOTOR VEHICLE CRASHReason for exam:->HIP [...] Alcantara Verified Date/Time: 11/19/2018 22:44:18 Reading Location: [facility] C0[facility] Consult Reading Room RAD, SHOULDER, COMPLETE (MIN 2 VIEWS), [id number] 22:41:00Reason for exam:->MOTOR VEHICLE CRASHReason for exam:->HIP PAINReason for exam:->ARM INJURYReason for exam:->SHOULDER INJURYFINAL REPORT Right shoulder series - 3 VIEWS Clinical Indication: Right shoulder pain following traumatic injury. Impression: No evidence of acute fracture or traumatic malalignment. Signed: Garibay, MDReport Verified Date/Time: 11/19/2018 22:41:16 Reading Location: [address] Reading Room URINALYSIS W/ [id number] 21:44:00 Test Item Value Reference Range Interpretation [...] 1663) SOURCE(BEAKER) (test code = 2795) SCREEN, [id number] 21:40:00 Test Item Value Reference Range Interpretation Comments TEST URINE (BEAKER) (test Negative code = 583) URINALYSIS W/ [id number] 21:41:00 Test Item Value Reference Range Interpretation [...] 1663) SOURCE(BEAKER) (test code = 2795) SCREEN, [id number] 21:37:00 Test Item Value Reference Range Interpretation Comments TEST URINE (BEAKER) (test Negative code = 583) RAPID INFLUENZA A&B [id number] 20:49:00 Test Item Value Reference Range Interpretation Comments RAPID INFLUENZA A AG (BEAKER) Negative Negative, Inconclusive (test code = 1622) RAPID INFLUENZA B AG (BEAKER) Negative Negative, Inconclusive (test code = 1623) CT, [id number] 08:31:00Reason for exam:->ABDOMINAL PAINReason for exam:->FEVERReason for [...] MDReport Verified Date/Time: 07/31/2017 08:31:14 Reading Location: [facility] Diagnostic Imaging Reading Room - [place] [address] RAD, CHEST, 1 VIEW, NON [id number] 08:23:00Reason for exam:->ABDOMINAL PAINReason for exam:->FEVERReason for [...] Verified Date/Time: 07/31/2017 08:23:48 Reading Location: [address] Radiology Reading Room [id number] 08:07:00 Test Item Value Reference Range Interpretation Comments LIPASE (BEAKER) (test code = 749) 34 U/L 6-51 URINALYSIS W/ REFLEX URINE [id number] 08:06:00 Test Item Value Reference Range Interpretation [...] SOURCE(BEAKER) (test code = 2795) COMPREHENSIVE METABOLIC [id number] 08:06:00 Test Item Value Reference Range Interpretation [...] S NOT APPLICABLE FOR DIALYSIS PATIEN TS. [id number] 07:58:00 Test Item Value Reference Range Interpretation Comments AMYLASE (BEAKER) (test code = 349) 52 U/L 30-110 SCREEN, [id number] 07:52:00 Test Item Value Reference Range Interpretation Comments TEST URINE (BEAKER) (test Negative code = 583) CBC W/PLT COUNT & AUTO [id number] 07:48:00 Test Item Value Reference Range Interpretation [...] 0.00-0.20 (test code = 417) BASIC METABOLIC [id number] 21:32:00 Test Item Value Reference Range Interpretation [...] DIALYSIS PATIEN TS. LACTIC ACID, VENOUS, WHOLE [id number] 21:19:00 Test Item Value Reference Range Interpretation Comments LACTATE BLOOD VENOUS 0.9 mmol/L 0.5-2.2 Specime n slightly (2) (BEAKER) (test hemolyzed code = 8689) Effective 12/15/2015: Units/Reference Range ChangeNew: 0.5-2.2 mmol/L Previous: 5- 18 mg/dLCBC W/PLT COUNT & AUTO [id number] 21:07:00 Test Item Value Reference Range Interpretation [...] L 0.00-0.20 (test code = 417) SCREEN, [id number] 18:50:00 Test Item Value Reference Range Interpretation Comments TEST URINE (BEAKER) (test Negative code = 583) URINE [id number] 09:20:00 Test Item Value Reference Range Interpretation [...] = 480) CBC W/PLT COUNT & AUTO [id number] 16:52:00 Test Item Value Reference Range Interpretation [...] 0.00-0.20 (test code = 417) COMPREHENSIVE METABOLIC [id number] 16:28:00 Test Item Value Reference Range Interpretation [...] S NOT APPLICABLE FOR DIALYSIS PATIEN TS. [id number] 16:22:00 Test Item Value Reference Range Interpretation Comments LIPASE (BEAKER) (test code = 749) 26 U/L 6-51 URINALYSIS W/ REFLEX URINE [id number] 15:52:00 Test Item Value Reference Range Interpretation [...] 1663) SOURCE(BEAKER) (test code = 2795) SCREEN, [id number] 15:49:00 Test Item Value Reference Range Interpretation Comments TEST URINE (BEAKER) (test Negative code = 583) URINE AND [id number] 08:40:00 Test Item Value Reference Range Interpretation Comments UA Leuk Est (test code Trace *ABN*(02/13/16 3:40 = UA Leuk Est) AM) [facility] AND [id number] 08:40:00 Test Item Value Reference Range Interpretation Comments UA Nitrite (test code Negative (02/13/16 3:40 = UA Nitrite) AM) [facility] [id number] 08:40:00 Test Item Value Reference Range Interpretation Comments UA Urobilinogen (test code = UA 0.2 0.1-1.0 Urobilinogen) [facility] AND [id number] 08:40:00 Test Item Value Reference Range Interpretation Comments UA Ketones (test code Negative *NA*(02/13/16 = UA Ketones) 3:40 AM) [facility] AND [id number] 08:40:00 Test Item Value Reference Range Interpretation Comments UA Glucose (test code Negative (02/13/16 3:40 = UA Glucose) AM) [facility] AND [id number] 08:40:00 Test Item Value Reference Range Interpretation Comments UA Blood (test code = Large *ABN*(02/13/16 UA Blood) 3:40 AM) [facility] [id number] 08:40:00 Test Item Value Reference Range Interpretation Comments UA Bili (test code = Negative *NA*(02/13/16 UA Bili) 3:40 AM) [facility] [id number] 08:40:00 Test Item Value Reference Range Interpretation Comments UA Protein (test code = UA Protein) 30 mg/dL [facility] [id number] 08:40:00 Test Item Value Reference Range Interpretation Comments UA Spec Grav (test code = UA Spec 1.015 1 Grav) [facility] [id number] 08:40:00 Test Item Value Reference Range Interpretation Comments UA pH (test code = UA pH) 7.0 1 5.0-8.0 [facility] AND [id number] 08:40:00 Test Item Value Reference Range Interpretation Comments UA Color (test code = Red *ABN*(02/13/16 3:40 UA Color) AM) [facility] AND [id number] 08:40:00 Test Item Value Reference Range Interpretation Comments UA Turbidity (test code Bloody *ABN*(02/13/16 = UA Turbidity) 3:40 AM) [facility] AND [id number] 08:40:00 Test Item Value Reference Range Interpretation Comments UA Bacteria (test code = UA Occasional /HPF Bacteria) [facility] AND [id number] 08:40:00 Test Item Value Reference Range Interpretation Comments UA RBC (test Packed See_Comment [Automated mes shirley] code = UA RBC) *ABN*(02/13/16 3:40 The syst em which AM) generated this result transmitted ref erence range: <=2. The reference range was not used to int erpret this result as normal/abnormal . [facility] AND [id number] 08:40:00 Test Item Value Reference Range Interpretation Comments UA WBC (test code = UA WBC) 3-5 /HPF [facility] AND [id number] 08:40:00 Test Item Value Reference Range Interpretation Comments UA Sq Epi (test code = UA Sq Epi) Rare /LPF [facility] AND [id number] 08:40:00 Test Item Value Reference Range Interpretation Comments UA Leuk Est (test code Trace *ABN*(02/13/16 3:40 = UA Leuk Est) AM) [facility] AND [id number] 08:40:00 Test Item Value Reference Range Interpretation Comments UA Nitrite (test code Negative (02/13/16 3:40 = UA Nitrite) AM) [facility] AND [id number] 08:40:00 Test Item Value Reference Range Interpretation Comments UA Urobilinogen (test code = UA 0.2 0.1-1.0 Urobilinogen) [facility] AND [id number] 08:40:00 Test Item Value Reference Range Interpretation Comments UA Ketones (test code Negative *NA*(02/13/16 = UA Ketones) 3:40 AM) [facility] AND [id number] 08:40:00 Test Item Value Reference Range Interpretation Comments UA Glucose (test code Negative (02/13/16 3:40 = UA Glucose) AM) [facility] AND [id number] 08:40:00 Test Item Value Reference Range Interpretation Comments UA Blood (test code = Large *ABN*(02/13/16 UA Blood) 3:40 AM) [facility] AND [id number] 08:40:00 Test Item Value Reference Range Interpretation Comments UA Bili (test code = Negative *NA*(02/13/16 UA Bili) 3:40 AM) [facility] AND [id number] 08:40:00 Test Item Value Reference Range Interpretation Comments UA Protein (test code = UA Protein) 30 mg/dL [facility] AND [id number] 08:40:00 Test Item Value Reference Range Interpretation Comments UA Spec Grav (test code = UA Spec 1.015 1 Grav) [facility] AND [id number] 08:40:00 Test Item Value Reference Range Interpretation Comments UA pH (test code = UA pH) 7.0 1 5.0-8.0 [facility] AND [id number] 08:40:00 Test Item Value Reference Range Interpretation Comments UA Color (test code = Red *ABN*(02/13/16 3:40 UA Color) AM) [facility] AND [id number] 08:40:00 Test Item Value Reference Range Interpretation Comments UA Turbidity (test code Bloody *ABN*(02/13/16 = UA Turbidity) 3:40 AM) [facility] AND [id number] 08:40:00 Test Item Value Reference Range Interpretation Comments UA Bacteria (test code = UA Occasional /HPF Bacteria) [facility] AND [id number] 08:40:00 Test Item Value Reference Range Interpretation Comments UA RBC (test Packed See_Comment [Automated mes shirley] code = UA RBC) *ABN*(02/13/16 3:40 The syst em which AM) generated this result transmitted ref erence range: <=2. The reference range was not used to int erpret this result as normal/abnormal . [facility] AND [id number] 08:40:00 Test Item Value Reference Range Interpretation Comments UA WBC (test code = UA WBC) 3-5 /HPF [facility] AND [id number] 08:40:00 Test Item Value Reference Range Interpretation Comments UA Sq Epi (test code = UA Sq Epi) Rare /LPF [facility] AND [id number] 08:40:00 Test Item Value Reference Range Interpretation Comments UA Leuk Est (test code Trace *ABN*(02/13/16 3:40 = UA Leuk Est) AM) [facility] AND [id number] 08:40:00 Test Item Value Reference Range Interpretation Comments UA Nitrite (test code Negative (02/13/16 3:40 = UA Nitrite) AM) [facility] AND [id number] 08:40:00 Test Item Value Reference Range Interpretation Comments UA Urobilinogen (test code = UA 0.2 0.1-1.0 Urobilinogen) [facility] AND [id number] 08:40:00 Test Item Value Reference Range Interpretation Comments UA Ketones (test code Negative *NA*(02/13/16 = UA Ketones) 3:40 AM) [facility] AND [id number] 08:40:00 Test Item Value Reference Range Interpretation Comments UA Glucose (test code Negative (02/13/16 3:40 = UA Glucose) AM) [facility] AND [id number] 08:40:00 Test Item Value Reference Range Interpretation Comments UA Blood (test code = Large *ABN*(02/13/16 UA Blood) 3:40 AM) [facility] AND [id number] 08:40:00 Test Item Value Reference Range Interpretation Comments UA Bili (test code = Negative *NA*(02/13/16 UA Bili) 3:40 AM) [facility] AND [id number] 08:40:00 Test Item Value Reference Range Interpretation Comments UA Protein (test code = UA Protein) 30 mg/dL [facility] AND [id number] 08:40:00 Test Item Value Reference Range Interpretation Comments UA Spec Grav (test code = UA Spec 1.015 1 Grav) [facility] AND [id number] 08:40:00 Test Item Value Reference Range Interpretation Comments UA pH (test code = UA pH) 7.0 1 5.0-8.0 [facility] AND [id number] 08:40:00 Test Item Value Reference Range Interpretation Comments UA Color (test code = Red *ABN*(02/13/16 3:40 UA Color) AM) [facility] AND [id number] 08:40:00 Test Item Value Reference Range Interpretation Comments UA Turbidity (test code Bloody *ABN*(02/13/16 = UA Turbidity) 3:40 AM) [facility] AND [id number] 08:40:00 Test Item Value Reference Range Interpretation Comments UA Bacteria (test code = UA Occasional /HPF Bacteria) [facility] AND [id number] 08:40:00 Test Item Value Reference Range Interpretation Comments UA RBC (test Packed See_Comment [Automated mes shirley] code = UA RBC) *ABN*(02/13/16 3:40 The syst em which AM) generated this result transmitted ref erence range: <=2. The reference range was not used to int erpret this result as normal/abnormal . [facility] [id number] 08:40:00 Test Item Value Reference Range Interpretation Comments UA WBC (test code = UA WBC) 3-5 /HPF [facility] AND [id number] 08:40:00 Test Item Value Reference Range Interpretation Comments UA Sq Epi (test code = UA Sq Epi) Rare /LPF [facility] [id number] 08:40:00 Test Item Value Reference Range Interpretation Comments UA Leuk Est (test code Trace *ABN*(02/13/16 3:40 = UA Leuk Est) AM) [facility] [id number] 08:40:00 Test Item Value Reference Range Interpretation Comments UA Nitrite (test code Negative (02/13/16 3:40 = UA Nitrite) AM) [facility] [id number] 08:40:00 Test Item Value Reference Range Interpretation Comments UA Urobilinogen (test code = UA 0.2 0.1-1.0 Urobilinogen) [facility] [id number] 08:40:00 Test Item Value Reference Range Interpretation Comments UA Ketones (test code Negative *NA*(02/13/16 = UA Ketones) 3:40 AM) [facility] [id number] 08:40:00 Test Item Value Reference Range Interpretation Comments UA Glucose (test code Negative (02/13/16 3:40 = UA Glucose) AM) [facility] [id number] 08:40:00 Test Item Value Reference Range Interpretation Comments UA Blood (test code = Large *ABN*(02/13/16 UA Blood) 3:40 AM) [facility] [id number] 08:40:00 Test Item Value Reference Range Interpretation Comments UA Bili (test code = Negative *NA*(02/13/16 UA Bili) 3:40 AM) [facility] [id number] 08:40:00 Test Item Value Reference Range Interpretation Comments UA Protein (test code = UA Protein) 30 mg/dL [facility] [id number] 08:40:00 Test Item Value Reference Range Interpretation Comments UA Spec Grav (test code = UA Spec 1.015 1 Grav) [facility] [id number] 08:40:00 Test Item Value Reference Range Interpretation Comments UA pH (test code = UA pH) 7.0 1 5.0-8.0 [facility] [id number] 08:40:00 Test Item Value Reference Range Interpretation Comments UA Color (test code = Red *ABN*(02/13/16 3:40 UA Color) AM) [facility] [id number] 08:40:00 Test Item Value Reference Range Interpretation Comments UA Turbidity (test code Bloody *ABN*(02/13/16 = UA Turbidity) 3:40 AM) [facility] [id number] 08:40:00 Test Item Value Reference Range Interpretation Comments UA Bacteria (test code = UA Occasional /HPF Bacteria) [facility] [id number] 08:40:00 Test Item Value Reference Range Interpretation Comments UA RBC (test Packed See_Comment [Automated mes shirley] code = UA RBC) *ABN*(02/13/16 3:40 The syst em which AM) generated this result transmitted ref erence range: <=2. The reference range was not used to int erpret this result as normal/abnormal . [facility] [id number] 08:40:00 Test Item Value Reference Range Interpretation Comments UA WBC (test code = UA WBC) 3-5 /HPF [facility] [id number] 08:40:00 Test Item Value Reference Range Interpretation Comments UA Sq Epi (test code = UA Sq Epi) Rare /LPF [facility] [id number] 08:40:00 Test Item Value Reference Range Interpretation Comments UA Leuk Est (test code Trace *ABN*(02/13/16 3:40 = UA Leuk Est) AM) [facility] [id number] 08:40:00 Test Item Value Reference Range Interpretation Comments UA Nitrite (test code Negative (02/13/16 3:40 = UA Nitrite) AM) [facility] [id number] 08:40:00 Test Item Value Reference Range Interpretation Comments UA Urobilinogen (test code = UA 0.2 0.1-1.0 Urobilinogen) [facility] [id number] 08:40:00 Test Item Value Reference Range Interpretation Comments UA Ketones (test code Negative *NA*(02/13/16 = UA Ketones) 3:40 AM) [facility] [id number] 08:40:00 Test Item Value Reference Range Interpretation Comments UA Glucose (test code Negative (02/13/16 3:40 = UA Glucose) AM) [facility] [id number] 08:40:00 Test Item Value Reference Range Interpretation Comments UA Blood (test code = Large *ABN*(02/13/16 UA Blood) 3:40 AM) [facility] [id number] 08:40:00 Test Item Value Reference Range Interpretation Comments UA Bili (test code = Negative *NA*(02/13/16 UA Bili) 3:40 AM) [facility] [id number] 08:40:00 Test Item Value Reference Range Interpretation Comments UA Protein (test code = UA Protein) 30 mg/dL [facility] [id number] 08:40:00 Test Item Value Reference Range Interpretation Comments UA Spec Grav (test code = UA Spec 1.015 1 Grav) [facility] [id number] 08:40:00 Test Item Value Reference Range Interpretation Comments UA pH (test code = UA pH) 7.0 1 5.0-8.0 [facility] [id number] 08:40:00 Test Item Value Reference Range Interpretation Comments UA Color (test code = Red *ABN*(02/13/16 3:40 UA Color) AM) [facility] [id number] 08:40:00 Test Item Value Reference Range Interpretation Comments UA Turbidity (test code Bloody *ABN*(02/13/16 = UA Turbidity) 3:40 AM) [facility] [id number] 08:40:00 Test Item Value Reference Range Interpretation Comments UA Bacteria (test code = UA Occasional /HPF Bacteria) [facility] [id number] 08:40:00 Test Item Value Reference Range Interpretation Comments UA RBC (test Packed See_Comment [Automated mes shirley] code = UA RBC) *ABN*(02/13/16 3:40 The syst em which AM) generated this result transmitted ref erence range: <=2. The reference range was not used to int erpret this result as normal/abnormal . [facility] [id number] 08:40:00 Test Item Value Reference Range Interpretation Comments UA WBC (test code = UA WBC) 3-5 /HPF [facility] [id number] 08:40:00 Test Item Value Reference Range Interpretation Comments UA Sq Epi (test code = UA Sq Epi) Rare /LPF [facility] [id number] 08:40:00 Test Item Value Reference Range Interpretation Comments UA Leuk Est (test code Trace *ABN*(02/13/16 3:40 = UA Leuk Est) AM) [facility] [id number] 08:40:00 Test Item Value Reference Range Interpretation Comments UA Nitrite (test code Negative (02/13/16 3:40 = UA Nitrite) AM) [facility] [id number] 08:40:00 Test Item Value Reference Range Interpretation Comments UA Urobilinogen (test code = UA 0.2 0.1-1.0 Urobilinogen) [facility] [id number] 08:40:00 Test Item Value Reference Range Interpretation Comments UA Ketones (test code Negative *NA*(02/13/16 = UA Ketones) 3:40 AM) [facility] [id number] 08:40:00 Test Item Value Reference Range Interpretation Comments UA Glucose (test code Negative (02/13/16 3:40 = UA Glucose) AM) [facility] [id number] 08:40:00 Test Item Value Reference Range Interpretation Comments UA Blood (test code = Large *ABN*(02/13/16 UA Blood) 3:40 AM) [facility] [id number] 08:40:00 Test Item Value Reference Range Interpretation Comments UA Bili (test code = Negative *NA*(02/13/16 UA Bili) 3:40 AM) [facility] [id number] 08:40:00 Test Item Value Reference Range Interpretation Comments UA Protein (test code = UA Protein) 30 mg/dL [facility] [id number] 08:40:00 Test Item Value Reference Range Interpretation Comments UA Spec Grav (test code = UA Spec 1.015 1 Grav) [facility] [id number] 08:40:00 Test Item Value Reference Range Interpretation Comments UA pH (test code = UA pH) 7.0 1 5.0-8.0 [facility] [id number] 08:40:00 Test Item Value Reference Range Interpretation Comments UA Color (test code = Red *ABN*(02/13/16 3:40 UA Color) AM) [facility] [id number] 08:40:00 Test Item Value Reference Range Interpretation Comments UA Turbidity (test code Bloody *ABN*(02/13/16 = UA Turbidity) 3:40 AM) [facility] [id number] 08:40:00 Test Item Value Reference Range Interpretation Comments UA Bacteria (test code = UA Occasional /HPF Bacteria) [facility] [id number] 08:40:00 Test Item Value Reference Range Interpretation Comments UA RBC (test Packed See_Comment [Automated mes shirley] code = UA RBC) *ABN*(02/13/16 3:40 The syst em which AM) generated this result transmitted ref erence range: <=2. The reference range was not used to int erpret this result as normal/abnormal . [facility] [id number] 08:40:00 Test Item Value Reference Range Interpretation Comments UA WBC (test code = UA WBC) 3-5 /HPF [facility] [id number] 08:40:00 Test Item Value Reference Range Interpretation Comments UA Sq Epi (test code = UA Sq Epi) Rare /LPF [facility] [id number] 08:40:00 Test Item Value Reference Range Interpretation Comments UA Leuk Est (test code Trace *ABN*(02/13/16 3:40 = UA Leuk Est) AM) [facility] [id number] 08:40:00 Test Item Value Reference Range Interpretation Comments UA Nitrite (test code Negative (02/13/16 3:40 = UA Nitrite) AM) [facility] [id number] 08:40:00 Test Item Value Reference Range Interpretation Comments UA Urobilinogen (test code = UA 0.2 0.1-1.0 Urobilinogen) [facility] [id number] 08:40:00 Test Item Value Reference Range Interpretation Comments UA Ketones (test code Negative *NA*(02/13/16 = UA Ketones) 3:40 AM) [facility] [id number] 08:40:00 Test Item Value Reference Range Interpretation Comments UA Glucose (test code Negative (02/13/16 3:40 = UA Glucose) AM) [facility] [id number] 08:40:00 Test Item Value Reference Range Interpretation Comments UA Blood (test code = Large *ABN*(02/13/16 UA Blood) 3:40 AM) [facility] [id number] 08:40:00 Test Item Value Reference Range Interpretation Comments UA Bili (test code = Negative *NA*(02/13/16 UA Bili) 3:40 AM) [facility] [id number] 08:40:00 Test Item Value Reference Range Interpretation Comments UA Protein (test code = UA Protein) 30 mg/dL [facility] [id number] 08:40:00 Test Item Value Reference Range Interpretation Comments UA Spec Grav (test code = UA Spec 1.015 1 Grav) [facility] [id number] 08:40:00 Test Item Value Reference Range Interpretation Comments UA pH (test code = UA pH) 7.0 1 5.0-8.0 [facility] [id number] 08:40:00 Test Item Value Reference Range Interpretation Comments UA Color (test code = Red *ABN*(02/13/16 3:40 UA Color) AM) [facility] [id number] 08:40:00 Test Item Value Reference Range Interpretation Comments UA Turbidity (test code Bloody *ABN*(02/13/16 = UA Turbidity) 3:40 AM) [facility] [id number] 08:40:00 Test Item Value Reference Range Interpretation Comments UA Bacteria (test code = UA Occasional /HPF Bacteria) [facility] [id number] 08:40:00 Test Item Value Reference Range Interpretation Comments UA RBC (test Packed See_Comment [Automated mes shirley] code = UA RBC) *ABN*(02/13/16 3:40 The syst em which AM) generated this result transmitted ref erence range: <=2. The reference range was not used to int erpret this result as normal/abnormal . [facility] [id number] 08:40:00 Test Item Value Reference Range Interpretation Comments UA WBC (test code = UA WBC) 3-5 /HPF [facility] [id number] 08:40:00 Test Item Value Reference Range Interpretation Comments UA Sq Epi (test code = UA Sq Epi) Rare /LPF [facility] [id number] 08:40:00 Test Item Value Reference Range Interpretation Comments UA Leuk Est (test code Trace *ABN*(02/13/16 3:40 = UA Leuk Est) AM) [facility] [id number] 08:40:00 Test Item Value Reference Range Interpretation Comments UA Nitrite (test code Negative (02/13/16 3:40 = UA Nitrite) AM) [facility] [id number] 08:40:00 Test Item Value Reference Range Interpretation Comments UA Urobilinogen (test code = UA 0.2 0.1-1.0 Urobilinogen) [facility] [id number] 08:40:00 Test Item Value Reference Range Interpretation Comments UA Ketones (test code Negative *NA*(02/13/16 = UA Ketones) 3:40 AM) [facility] [id number] 08:40:00 Test Item Value Reference Range Interpretation Comments UA Glucose (test code Negative (02/13/16 3:40 = UA Glucose) AM) [facility] [id number] 08:40:00 Test Item Value Reference Range Interpretation Comments UA Blood (test code = Large *ABN*(02/13/16 UA Blood) 3:40 AM) [facility] [id number] 08:40:00 Test Item Value Reference Range Interpretation Comments UA Bili (test code = Negative *NA*(02/13/16 UA Bili) 3:40 AM) [facility] [id number] 08:40:00 Test Item Value Reference Range Interpretation Comments UA Protein (test code = UA Protein) 30 mg/dL [facility] [id number] 08:40:00 Test Item Value Reference Range Interpretation Comments UA Spec Grav (test code = UA Spec 1.015 1 Grav) [facility] [id number] 08:40:00 Test Item Value Reference Range Interpretation Comments UA pH (test code = UA pH) 7.0 1 5.0-8.0 [facility] [id number] 08:40:00 Test Item Value Reference Range Interpretation Comments UA Color (test code = Red *ABN*(02/13/16 3:40 UA Color) AM) [facility] [id number] 08:40:00 Test Item Value Reference Range Interpretation Comments UA Turbidity (test code Bloody *ABN*(02/13/16 = UA Turbidity) 3:40 AM) [facility] [id number] 08:40:00 Test Item Value Reference Range Interpretation Comments UA Bacteria (test code = UA Occasional /HPF Bacteria) [facility] [id number] 08:40:00 Test Item Value Reference Range Interpretation Comments UA RBC (test Packed See_Comment [Automated mes shirley] code = UA RBC) *ABN*(02/13/16 3:40 The syst em which AM) generated this result transmitted ref erence range: <=2. The reference range was not used to int erpret this result as normal/abnormal . [facility] [id number] 08:40:00 Test Item Value Reference Range Interpretation Comments UA WBC (test code = UA WBC) 3-5 /HPF [facility] [id number] 08:40:00 Test Item Value Reference Range Interpretation Comments UA Sq Epi (test code = UA Sq Epi) Rare /LPF [facility] [id number] 08:40:00 Test Item Value Reference Range Interpretation Comments UA Leuk Est (test code Trace *ABN*(02/13/16 3:40 = UA Leuk Est) AM) [facility] [id number] 08:40:00 Test Item Value Reference Range Interpretation Comments UA Nitrite (test code Negative (02/13/16 3:40 = UA Nitrite) AM) [facility] [id number] 08:40:00 Test Item Value Reference Range Interpretation Comments UA Urobilinogen (test code = UA 0.2 0.1-1.0 Urobilinogen) [facility] [id number] 08:40:00 Test Item Value Reference Range Interpretation Comments UA Ketones (test code Negative *NA*(02/13/16 = UA Ketones) 3:40 AM) [facility] [id number] 08:40:00 Test Item Value Reference Range Interpretation Comments UA Glucose (test code Negative (02/13/16 3:40 = UA Glucose) AM) [facility] [id number] 08:40:00 Test Item Value Reference Range Interpretation Comments UA Blood (test code = Large *ABN*(02/13/16 UA Blood) 3:40 AM) [facility] [id number] 08:40:00 Test Item Value Reference Range Interpretation Comments UA Bili (test code = Negative *NA*(02/13/16 UA Bili) 3:40 AM) [facility] [id number] 08:40:00 Test Item Value Reference Range Interpretation Comments UA Protein (test code = UA Protein) 30 mg/dL [facility] [id number] 08:40:00 Test Item Value Reference Range Interpretation Comments UA Spec Grav (test code = UA Spec 1.015 1 Grav) [facility] [id number] 08:40:00 Test Item Value Reference Range Interpretation Comments UA pH (test code = UA pH) 7.0 1 5.0-8.0 [facility] [id number] 08:40:00 Test Item Value Reference Range Interpretation Comments UA Color (test code = Red *ABN*(02/13/16 3:40 UA Color) AM) [facility] [id number] 08:40:00 Test Item Value Reference Range Interpretation Comments UA Turbidity (test code Bloody *ABN*(02/13/16 = UA Turbidity) 3:40 AM) [facility] [id number] 08:40:00 Test Item Value Reference Range Interpretation Comments UA Bacteria (test code = UA Occasional /HPF Bacteria) [facility] [id number] 08:40:00 Test Item Value Reference Range Interpretation Comments UA RBC (test Packed See_Comment [Automated mes shirley] code = UA RBC) *ABN*(02/13/16 3:40 The syst em which AM) generated this result transmitted ref erence range: <=2. The reference range was not used to int erpret this result as normal/abnormal . [facility] [id number] 08:40:00 Test Item Value Reference Range Interpretation Comments UA WBC (test code = UA WBC) 3-5 /HPF [facility] [id number] 08:40:00 Test Item Value Reference Range Interpretation Comments UA Sq Epi (test code = UA Sq Epi) Rare /LPF [facility] [id number] 08:40:00 Test Item Value Reference Range Interpretation Comments UA Leuk Est (test code Trace *ABN*(02/13/16 3:40 = UA Leuk Est) AM) [facility] [id number] 08:40:00 Test Item Value Reference Range Interpretation Comments UA Nitrite (test code Negative (02/13/16 3:40 = UA Nitrite) AM) [facility] [id number] 08:40:00 Test Item Value Reference Range Interpretation Comments UA Urobilinogen (test code = UA 0.2 0.1-1.0 Urobilinogen) [facility] [id number] 08:40:00 Test Item Value Reference Range Interpretation Comments UA Ketones (test code Negative *NA*(02/13/16 = UA Ketones) 3:40 AM) [facility] [id number] 08:40:00 Test Item Value Reference Range Interpretation Comments UA Glucose (test code Negative (02/13/16 3:40 = UA Glucose) AM) [facility] [id number] 08:40:00 Test Item Value Reference Range Interpretation Comments UA Blood (test code = Large *ABN*(02/13/16 UA Blood) 3:40 AM) [facility] [id number] 08:40:00 Test Item Value Reference Range Interpretation Comments UA Bili (test code = Negative *NA*(02/13/16 UA Bili) 3:40 AM) [facility] [id number] 08:40:00 Test Item Value Reference Range Interpretation Comments UA Protein (test code = UA Protein) 30 mg/dL [facility] [id number] 08:40:00 Test Item Value Reference Range Interpretation Comments UA Spec Grav (test code = UA Spec 1.015 1 Grav) [facility] [id number] 08:40:00 Test Item Value Reference Range Interpretation Comments UA pH (test code = UA pH) 7.0 1 5.0-8.0 [facility] [id number] 08:40:00 Test Item Value Reference Range Interpretation Comments UA Color (test code = Red *ABN*(02/13/16 3:40 UA Color) AM) [facility] [id number] 08:40:00 Test Item Value Reference Range Interpretation Comments UA Turbidity (test code Bloody *ABN*(02/13/16 = UA Turbidity) 3:40 AM) [facility] [id number] 08:40:00 Test Item Value Reference Range Interpretation Comments UA Bacteria (test code = UA Occasional /HPF Bacteria) [facility] [id number] 08:40:00 Test Item Value Reference Range Interpretation Comments UA RBC (test Packed See_Comment [Automated mes shirley] code = UA RBC) *ABN*(02/13/16 3:40 The syst em which AM) generated this result transmitted ref erence range: <=2. The reference range was not used to int erpret this result as normal/abnormal . [facility] [id number] 08:40:00 Test Item Value Reference Range Interpretation Comments UA WBC (test code = UA WBC) 3-5 /HPF [facility] [id number] 08:40:00 Test Item Value Reference Range Interpretation Comments UA Sq Epi (test code = UA Sq Epi) Rare /LPF [facility] [id number] 08:40:00 Test Item Value Reference Range Interpretation Comments UA Leuk Est (test code Trace *ABN*(02/13/16 3:40 = UA Leuk Est) AM) [facility] [id number] 08:40:00 Test Item Value Reference Range Interpretation Comments UA Nitrite (test code Negative (02/13/16 3:40 = UA Nitrite) AM) [facility] [id number] 08:40:00 Test Item Value Reference Range Interpretation Comments UA Urobilinogen (test code = UA 0.2 0.1-1.0 Urobilinogen) [facility] [id number] 08:40:00 Test Item Value Reference Range Interpretation Comments UA Ketones (test code Negative *NA*(02/13/16 = UA Ketones) 3:40 AM) [facility] [id number] 08:40:00 Test Item Value Reference Range Interpretation Comments UA Glucose (test code Negative (02/13/16 3:40 = UA Glucose) AM) [facility] [id number] 08:40:00 Test Item Value Reference Range Interpretation Comments UA Blood (test code = Large *ABN*(02/13/16 UA Blood) 3:40 AM) [facility] [id number] 08:40:00 Test Item Value Reference Range Interpretation Comments UA Bili (test code = Negative *NA*(02/13/16 UA Bili) 3:40 AM) [facility] [id number] 08:40:00 Test Item Value Reference Range Interpretation Comments UA Protein (test code = UA Protein) 30 mg/dL [facility] AND [id number] 08:40:00 Test Item Value Reference Range Interpretation Comments UA Spec Grav (test code = UA Spec 1.015 1 Grav) [facility] AND [id number] 08:40:00 Test Item Value Reference Range Interpretation Comments UA pH (test code = UA pH) 7.0 1 5.0-8.0 [facility] AND [id number] 08:40:00 Test Item Value Reference Range Interpretation Comments UA Color (test code = Red *ABN*(02/13/16 3:40 UA Color) AM) [facility] [id number] 08:40:00 Test Item Value Reference Range Interpretation Comments UA Turbidity (test code Bloody *ABN*(02/13/16 = UA Turbidity) 3:40 AM) [facility] [id number] 08:40:00 Test Item Value Reference Range Interpretation Comments UA Bacteria (test code = UA Occasional /HPF Bacteria) [facility] [id number] 08:40:00 Test Item Value Reference Range Interpretation Comments UA RBC (test Packed See_Comment [Automated mes shirley] code = UA RBC) *ABN*(02/13/16 3:40 The syst em which AM) generated this result transmitted ref erence range: <=2. The reference range was not used to int erpret this result as normal/abnormal . [facility] [id number] 08:40:00 Test Item Value Reference Range Interpretation Comments UA WBC (test code = UA WBC) 3-5 /HPF [facility] AND [id number] 08:40:00 Test Item Value Reference Range Interpretation Comments UA Sq Epi (test code = UA Sq Epi) Rare /LPF [facility] [employer] [id number] 06:44:00 Test Item Value Reference Range Interpretation Comments Antibody Scrn (test Negative (02/13/16 1:44 code = Antibody Scrn) AM) [facility] [employer] [id number] 06:44:00 Test Item Value Reference Range Interpretation Comments ABO/Rh (test code = ABO/Rh) [facility] [id number] 06:44:00 Test Item Value Reference Range Interpretation Comments CK MB Index (test 1.6 See_Comment [Automate d message] The code = CK MB Index) system w dee dee generated this result transmit gaye reference range : <=2.5. The reference range was not used to interpr et this result as satish l/abnormal. [facility] [employer]2016-07-03 06:44:00 Test Item Value Reference Range Interpretation Comments CK MB (test code = CK MB) 0.9 0.5-3.6 [facility] [employer]2016-07-03 06:44:00 Test Item Value Reference Range Interpretation Comments Total CK (test code = Total CK) 57 12-191 [facility] [employer]2016-07-03 06:44:00 Test Item Value Reference Range Interpretation Comments Troponin-I (test code no gt See_Comment [Auto mated message] The = Troponin-I) system which g enerated this result transmit gaye reference range : <=0.40. The reference r ozzy was not used to interpr et this result as satish l/abnormal. [employer]2016-07-03 06:44:00 Test Item Value Reference Range Interpretation Comments Albumin Lvl (test code = Albumin Lvl) 3.5 3.5-5.0 [facility] [employer]2016-07-03 06:44:00 Test Item Value Reference Range Interpretation Comments Total Protein (test code = Total 7.0 6.4-8.4 Protein) [facility] [employer]2016-07-03 06:44:00 Test Item Value Reference Range Interpretation Comments ALT (test code = ALT) 19 See_Comment [Auto mated message] The system which ge nerated this result transmit gaye reference range : <=65. The reference range was not used to interpr et this result as satish l/abnormal. [employer]2016-07-03 06:44:00 Test Item Value Reference Range Interpretation Comments AST (test code = AST) 10 See_Comment [Auto mated message] The system which ge nerated this result transmit gaye reference range : <=37. The reference range was not used to interpr et this result as satish l/abnormal. [employer]2016-07-03 06:44:00 Test Item Value Reference Range Interpretation Comments Alk Phos (test code = Alk Phos) 79 39-136 [facility]2016-07-03 06:44:00 Test Item Value Reference Range Interpretation Comments Bili Total (test code = Bili Total) 0.4 0.2-1.3 [facility]2016-07-03 06:44:00 Test Item Value Reference Range Interpretation Comments Bili Direct (test code 0.1 See_Comment [Aut omated message] The = Bili Direct) system which generated this result tra nsmitted reference range : <=0.3. The reference r ozzy was not used to int erpret this result as satish l/abnormal. [facility]2016-07-03 06:44:00 Test Item Value Reference Range Interpretation Comments Globulin (test code = Globulin) 3.5 2.0-4.0 [facility]2016-07-03 06:44:00 Test Item Value Reference Range Interpretation Comments A/G Ratio (test code = A/G Ratio) 1.0 0.7-1.6 [facility]2016-07-03 06:44:00 Test Item Value Reference Range Interpretation Comments Bili Indirect (test 0.3 See_Comment [Automa gaye message] The code = Bili Indirect) system which generated this result tra nsmitted reference range : <=1.0. The reference r ozzy was not used to int erpret this result as normal/abnormal . [facility]2016-07-03 06:44:00 Test Item Value Reference Range Interpretation Comments eGFR (test code = eGFR) 107 [facility]2016-07-03 06:44:00 Test Item Value Reference Range Interpretation Comments BUN (test code = BUN) 8 7-22 [facility]2016-07-03 06:44:00 Test Item Value Reference Range Interpretation Comments Glucose Lvl (test code = Glucose Lvl) 91 70-99 [facility]2016-07-03 06:44:00 Test Item Value Reference Range Interpretation Comments Sodium Lvl (test code = Sodium Lvl) 138 135-145 [facility]2016-07-03 06:44:00 Test Item Value Reference Range Interpretation Comments Creatinine Lvl (test code = Creatinine 0.70 0.50-1.40 Lvl) [facility]2016-07-03 06:44:00 Test Item Value Reference Range Interpretation Comments Potassium Lvl (test code = Potassium 3.3 3.5-5.1 Lvl) [facility]2016-07-03 06:44:00 Test Item Value Reference Range Interpretation Comments CO2 (test code = CO2) 25 24-32 [facility]2016-07-03 06:44:00 Test Item Value Reference Range Interpretation Comments Chloride Lvl (test code = Chloride Lvl) 106 95-109 [facility]2016-07-03 06:44:00 Test Item Value Reference Range Interpretation Comments Calcium Lvl (test code = Calcium Lvl) 8.1 8.5-10.5 [facility]2016-07-03 06:44:00 Test Item Value Reference Range Interpretation Comments AGAP (test code = AGAP) 10.3 10.0-20.0 [facility]2016-07-03 06:44:00 Test Item Value Reference Range Interpretation Comments Magnesium Lvl (test code = Magnesium 2.2 1.8-2.4 Lvl) [facility]FCF9786-22-69 06:44:00 Test Item Value Reference Range Interpretation Comments S Preg (test code = S Negative *NA*(02/13/16 Preg) 1:44 AM) [facility]GTJTABSXPM9584[facility]-35 06:44:00 Test Item Value Reference Range Interpretation Comments Basophils (test code = 0.1 See_Comment [Aut omated message] The Basophils) system which ge nerated this result tra nsmitted reference range : <=1.0. The reference r ozzy was not used to int erpret this result as normal/abnormal . [facility] CenterKeoescjZFKVOCKZWR1710-76-32 06:44:00 Test Item Value Reference Range Interpretation Comments Monocytes # (test code 0.3 See_Comment [Aut omated message] The = Monocytes #) system which generated this result tra nsmitted reference range : <=0.8. The reference r ozzy was not used to int erpret this result as normal/abnormal . [facility] CenterClbgldeAKTPMLNTRC5376-30-04 06:44:00 Test Item Value Reference Range Interpretation Comments Eosinophils # (test code 0.1 See_Comment [A utomated message] The = Eosinophils #) system whic h generated this result tra nsmitted reference range : <=0.5. The reference r ozzy was not used to int erpret this result as normal/abnormal . [facility] CenterLgjlqpcIBPFMSLLPN7562-03-94 06:44:00 Test Item Value Reference Range Interpretation Comments Segs-Bands # (test code = Segs-Bands #) 9.3 1.5-8.1 [facility] CenterEirsytbUPIKSDQGRO6922-49-64 06:44:00 Test Item Value Reference Range Interpretation Comments Lymphocytes # (test code = Lymphocytes 2.6 1.0-5.5 #) [facility] CenterHauvwhyOSWQZGBAGZ1790-72-17 06:44:00 Test Item Value Reference Range Interpretation Comments Basophils # (test code 0.0 See_Comment [Aut omated message] The = Basophils #) system which generated this result tra nsmitted reference range : <=0.2. The reference r ozzy was not used to int erpret this result as normal/abnormal . [facility] CenterBvejxugISNSEMDUBL8949-93-10 06:44:00 Test Item Value Reference Range Interpretation Comments Microcyte (test code = 1+ *ABN*(02/13/16 1:44 Microcyte) AM) [facility] CenterLaewqnpXQCFRLJONO9486-33-85 06:44:00 Test Item Value Reference Range Interpretation Comments Giant Plt (test code Moderate *ABN*(02/13/16 = Giant Plt) 1:44 AM) [facility] CenterMbufyjyJKNAKLIRXJ1503-80-98 06:44:00 Test Item Value Reference Range Interpretation Comments Segs (test code = Segs) 75.2 45.0-75.0 [facility] CenterHldlluqGBVUFOZWAX9232-32-08 06:44:00 Test Item Value Reference Range Interpretation Comments Hypochrom (test code = 1+ (02/13/16 1:44 AM) Hypochrom) [facility] CenterFoasvlbTZVZTKRNMM3530-55-91 06:44:00 Test Item Value Reference Range Interpretation Comments Eosinophils (test code = 0.7 See_Comment [A utomated message] The Eosinophils) system which ge nerated this result tra nsmitted reference range : <=4.0. The reference r ozzy was not used to int erpret this result as normal/abnormal . [facility] CenterKaejdzqNXXLVPEZTW1662-30-68 06:44:00 Test Item Value Reference Range Interpretation Comments Lymphocytes (test code = Lymphocytes) 21.3 20.0-40.0 [facility] CenterZgqjgejRVZXKFJTDM3020-55-67 06:44:00 Test Item Value Reference Range Interpretation Comments Monocytes (test code = Monocytes) 2.7 2.0-12.0 [facility] CenterCltpytdLOWMOFTGFV4223-31-94 06:44:00 Test Item Value Reference Range Interpretation Comments MPV (test code = MPV) 9.5 7.4-10.4 [facility] CenterPursiphFUOJPSDXLU9446-55-36 06:44:00 Test Item Value Reference Range Interpretation Comments RDW (test code = RDW) 17.8 11.5-14.5 [facility] CenterPvkbzlgZNJQAXJMKE7837-19-89 06:44:00 Test Item Value Reference Range Interpretation Comments MCV (test code = MCV) 73.2 80.0-98.0 [facility] CenterTrwraahXMIXAYZQHU8111-44-41 06:44:00 Test Item Value Reference Range Interpretation Comments MCH (test code = MCH) 21.9 pg 27.0-31.0 [facility] CenterTqlcyhtUKWCQRYQHF5053-60-24 06:44:00 Test Item Value Reference Range Interpretation Comments Hct (test code = Hct) 27.2 36.0-48.0 [facility] CenterZstzfplXUJTMGSINE8907-73-47 06:44:00 Test Item Value Reference Range Interpretation Comments MCHC (test code = MCHC) 29.9 32.0-36.0 [facility] CenterVrtrbkmTEZPGPLXLI8849-43-74 06:44:00 Test Item Value Reference Range Interpretation Comments Platelet (test code = Platelet) 400 133-450 [facility] CenterLjmputbTOBZRZLHTE6336-94-75 06:44:00 Test Item Value Reference Range Interpretation Comments WBC (test code = WBC) 12.4 3.7-10.4 [facility] CenterAsqwhaaKNHIUBTNUN5248-70-72 06:44:00 Test Item Value Reference Range Interpretation Comments RBC (test code = RBC) 3.72 4.20-5.40 [facility] CenterSzwuqarVMSKZTRPVO9667-30-08 06:44:00 Test Item Value Reference Range Interpretation Comments Hgb (test code = Hgb) 8.1 12.0-16.0 [facility] CenterVdwadbpGADLNRHIKX8997-39-90 06:44:00 Test Item Value Reference Range Interpretation Comments PTT (test code = PTT) 27.2 s 22.9-35.8 [facility] XqcnfjcPBBZTHHOKC3670-83-52 06:44:00 Test Item Value Reference Range Interpretation Comments PT (test code = PT) 14.7 s 12.0-14.7 [facility] VnplmcnWHXZSEULJU7657-99-10 06:44:00 Test Item Value Reference Range Interpretation Comments INR (test code = INR) 1.12 0.85-1.17 [employer] [id number] 06:44:00 Test Item Value Reference Range Interpretation Comments Antibody Scrn (test Negative (02/13/16 1:44 code = Antibody Scrn) AM) [employer] [id number] 06:44:00 Test Item Value Reference Range Interpretation Comments ABO/Rh (test code = ABO/Rh) A POS [facility] [employer]2016-07-03 06:44:00 Test Item Value Reference Range Interpretation Comments CK MB Index (test 1.6 See_Comment [Automate d message] The code = CK MB Index) system [facility] generated this result transmit gaye reference range : <=2.5. The reference range was not used to interpr et this result as satish l/abnormal. [employer]2016-07-03 06:44:00 Test Item Value Reference Range Interpretation Comments CK MB (test code = CK MB) 0.9 0.5-3.6 [facility] [employer]2016-07-03 06:44:00 Test Item Value Reference Range Interpretation Comments Total CK (test code = Total CK) 57 12-191 [facility] [employer]2016-07-03 06:44:00 Test Item Value Reference Range Interpretation Comments Troponin-I (test code no gt See_Comment [Auto mated message] The = Troponin-I) system which g enerated this result transmit gaye reference range : <=0.40. The reference r ozzy was not used to interpr et this result as satish l/abnormal. [employer] [id number] 06:44:00 Test Item Value Reference Range Interpretation Comments Albumin Lvl (test code = Albumin Lvl) 3.5 3.5-5.0 [employer]2016-07-03 06:44:00 Test Item Value Reference Range Interpretation Comments Total Protein (test code = Total 7.0 6.4-8.4 Protein) [facility] CenterFlyClipDUKE UNIVERSITY HOSPITALKHNYQ3784-66-75 06:44:00 Test Item Value Reference Range Interpretation Comments ALT (test code = ALT) 19 See_Comment [Auto mated message] The system which ge nerated this result transmit gaye reference range : <=65. The reference range was not used to interpr et this result as satish l/abnormal. [facility] CenterFlyClipDUKE UNIVERSITY HOSPITALLAPDU6753-61-43 06:44:00 Test Item Value Reference Range Interpretation Comments AST (test code = AST) 10 See_Comment [Auto mated message] The system which ge nerated this result transmit gaye reference range : <=37. The reference range was not used to interpr et this result as satish l/abnormal. [place] 726156-07-03 06:44:00 Test Item Value Reference Range Interpretation Comments Alk Phos (test code = Alk Phos) 79 39-136 [facility] Centerorgangir.am [id number] 06:44:00 Test Item Value Reference Range Interpretation Comments Bili Total (test code = Bili Total) 0.4 0.2-1.3 [place] 726156-07-03 06:44:00 Test Item Value Reference Range Interpretation Comments Bili Direct (test code 0.1 See_Comment [Aut omated message] The = Bili Direct) system which generated this result tra nsmitted reference range : <=0.3. The reference r ozzy was not used to int erpret this result as satish l/abnormal. [facility] Centerorgangir.am [id number] 06:44:00 Test Item Value Reference Range Interpretation Comments Globulin (test code = Globulin) 3.5 2.0-4.0 [facility] Centerorgangir.am CTYIW8923-70-65 06:44:00 Test Item Value Reference Range Interpretation Comments A/G Ratio (test code = A/G Ratio) 1.0 0.7-1.6 [facility] [id number] 06:44:00 Test Item Value Reference Range Interpretation Comments Bili Indirect (test 0.3 See_Comment [Automa gaye message] The code = Bili Indirect) system which generated this result tra nsmitted reference range : <=1.0. The reference r ozzy was not used to int erpret this result as normal/abnormal . [facility]2016-07-03 06:44:00 Test Item Value Reference Range Interpretation Comments eGFR (test code = eGFR) 107 [facility]2016-07-03 06:44:00 Test Item Value Reference Range Interpretation Comments BUN (test code = BUN) 8 7-22 [facility]2016-07-03 06:44:00 Test Item Value Reference Range Interpretation Comments Glucose Lvl (test code = Glucose Lvl) 91 70-99 [facility]2016-07-03 06:44:00 Test Item Value Reference Range Interpretation Comments Sodium Lvl (test code = Sodium Lvl) 138 135-145 [facility]2016-07-03 06:44:00 Test Item Value Reference Range Interpretation Comments Creatinine Lvl (test code = Creatinine 0.70 0.50-1.40 Lvl) [facility]2016-07-03 06:44:00 Test Item Value Reference Range Interpretation Comments Potassium Lvl (test code = Potassium 3.3 3.5-5.1 Lvl) [facility]2016-07-03 06:44:00 Test Item Value Reference Range Interpretation Comments CO2 (test code = CO2) 25 24-32 [facility]2016-07-03 06:44:00 Test Item Value Reference Range Interpretation Comments Chloride Lvl (test code = Chloride Lvl) 106 95-109 [facility]2016-07-03 06:44:00 Test Item Value Reference Range Interpretation Comments Calcium Lvl (test code = Calcium Lvl) 8.1 8.5-10.5 [facility]2016-07-03 06:44:00 Test Item Value Reference Range Interpretation Comments AGAP (test code = AGAP) 10.3 10.0-20.0 [facility]2016-07-03 06:44:00 Test Item Value Reference Range Interpretation Comments Magnesium Lvl (test code = Magnesium 2.2 1.8-2.4 Lvl) [facility]BuspcfcIPNUCOXBZFRYT3836-68-31 06:44:00 Test Item Value Reference Range Interpretation Comments S Preg (test code = S Negative *NA*(02/13/16 Preg) 1:44 AM) [facility]PckxaluPZCBADPZCS5652-49-82 06:44:00 Test Item Value Reference Range Interpretation Comments Basophils (test code = 0.1 See_Comment [Aut omated message] The Basophils) system which ge nerated this result tra nsmitted reference range : <=1.0. The reference r ozzy was not used to int erpret this result as normal/abnormal . [facility] CenterNbcqkhoWLPOPUFUZR6301-37-86 06:44:00 Test Item Value Reference Range Interpretation Comments Monocytes # (test code 0.3 See_Comment [Aut omated message] The = Monocytes #) system which generated this result tra nsmitted reference range : <=0.8. The reference r ozzy was not used to int erpret this result as normal/abnormal . [facility] CenterVtlrxcnOWHVLSPHAM6964-17-52 06:44:00 Test Item Value Reference Range Interpretation Comments Eosinophils # (test code 0.1 See_Comment [A utomated message] The = Eosinophils #) system whic h generated this result tra nsmitted reference range : <=0.5. The reference r ozzy was not used to int erpret this result as normal/abnormal . [facility] CenterJoxdxxgRXCSBCJFSB0193-05-85 06:44:00 Test Item Value Reference Range Interpretation Comments Segs-Bands # (test code = Segs-Bands #) 9.3 1.5-8.1 [facility] CenterOcboetkNWKYCKEOEV4249-12-17 06:44:00 Test Item Value Reference Range Interpretation Comments Lymphocytes # (test code = Lymphocytes 2.6 1.0-5.5 #) [facility] CenterCotxgfxHPRXPZYGJK9112-83-11 06:44:00 Test Item Value Reference Range Interpretation Comments Basophils # (test code 0.0 See_Comment [Aut omated message] The = Basophils #) system which generated this result tra nsmitted reference range : <=0.2. The reference r ozzy was not used to int erpret this result as normal/abnormal . [facility] CenterQmmsyssHGDMYLDYEV3579-41-27 06:44:00 Test Item Value Reference Range Interpretation Comments Microcyte (test code = 1+ *ABN*(02/13/16 1:44 Microcyte) AM) [facility] CenterSmajlruSKVVEOVUCX0825-76-69 06:44:00 Test Item Value Reference Range Interpretation Comments Giant Plt (test code Moderate *ABN*(02/13/16 = Giant Plt) 1:44 AM) [facility] CenterPjcsuygDHMJLEDYIO7398-05-54 06:44:00 Test Item Value Reference Range Interpretation Comments Segs (test code = Segs) 75.2 45.0-75.0 [facility] CenterUofpxpsHINYBKIZLI2954-43-39 06:44:00 Test Item Value Reference Range Interpretation Comments Hypochrom (test code = 1+ (02/13/16 1:44 AM) Hypochrom) [facility] CenterKnuwukcPRDYMPNOLK2821-09-62 06:44:00 Test Item Value Reference Range Interpretation Comments Eosinophils (test code = 0.7 See_Comment [A utomated message] The Eosinophils) system which ge nerated this result tra nsmitted reference range : <=4.0. The reference r ozzy was not used to int erpret this result as normal/abnormal . [facility] CenterYljljubEAELHSAJVT8037-46-82 06:44:00 Test Item Value Reference Range Interpretation Comments Lymphocytes (test code = Lymphocytes) 21.3 20.0-40.0 [facility] CenterXsetujvIXBHKWSRCW8041-10-84 06:44:00 Test Item Value Reference Range Interpretation Comments Monocytes (test code = Monocytes) 2.7 2.0-12.0 [facility] CenterUrynrihKOGJJYUZXH4110-99-87 06:44:00 Test Item Value Reference Range Interpretation Comments MPV (test code = MPV) 9.5 7.4-10.4 [facility] CenterSpbktwdBUTURMTDVV9648-22-94 06:44:00 Test Item Value Reference Range Interpretation Comments RDW (test code = RDW) 17.8 11.5-14.5 [facility] CenterIdyffxbXVIWNIUWRZ2383-67-69 06:44:00 Test Item Value Reference Range Interpretation Comments MCV (test code = MCV) 73.2 80.0-98.0 [facility] CenterPjjvirqJDNRQHANTM2811-93-68 06:44:00 Test Item Value Reference Range Interpretation Comments MCH (test code = MCH) 21.9 pg 27.0-31.0 [facility] CenterOkuidtsMISKKHVZKT7395-35-11 06:44:00 Test Item Value Reference Range Interpretation Comments Hct (test code = Hct) 27.2 36.0-48.0 [facility] CenterFacyykoTSUDTBHJFN3542-32-83 06:44:00 Test Item Value Reference Range Interpretation Comments MCHC (test code = MCHC) 29.9 32.0-36.0 [facility] CenterBhecudmSLDSUATRJP5372-08-67 06:44:00 Test Item Value Reference Range Interpretation Comments Platelet (test code = Platelet) 400 133-450 [facility] NjgghidTLTEOERNBA9867-06-81 06:44:00 Test Item Value Reference Range Interpretation Comments WBC (test code = WBC) 12.4 3.7-10.4 [facility] CenterFzkhxlzVOJJUWUVIQ9542-41-66 06:44:00 Test Item Value Reference Range Interpretation Comments RBC (test code = RBC) 3.72 4.20-5.40 [facility] RstrxohAOIRJJFXTA4578-58-40 06:44:00 Test Item Value Reference Range Interpretation Comments Hgb (test code = Hgb) 8.1 12.0-16.0 [facility] RfjhouiUCVNEPMIIB2612-95-61 06:44:00 Test Item Value Reference Range Interpretation Comments PTT (test code = PTT) 27.2 s 22.9-35.8 [facility] IhtbtdlYBEDCVXOFT5030-61-02 06:44:00 Test Item Value Reference Range Interpretation Comments PT (test code = PT) 14.7 s 12.0-14.7 [facility] KgdxveiZLIUQUFBHT5081-18-35 06:44:00 Test Item Value Reference Range Interpretation Comments INR (test code = INR) 1.12 0.85-1.17 [employer] [id number] 06:44:00 Test Item Value Reference Range Interpretation Comments Antibody Scrn (test Negative (02/13/16 1:44 code = Antibody Scrn) AM) [employer] [id number] 06:44:00 Test Item Value Reference Range Interpretation Comments ABO/Rh (test code = ABO/Rh) A POS [facility] [employer]2016-07-03 06:44:00 Test Item Value Reference Range Interpretation Comments CK MB Index (test 1.6 See_Comment [Automate d message] The code = CK MB Index) [facility] generated this result transmit gaye reference range : <=2.5. The reference range was not used to interpr et this result as satish l/abnormal. [employer]2016-07-03 06:44:00 Test Item Value Reference Range Interpretation Comments CK MB (test code = CK MB) 0.9 0.5-3.6 [facility] [employer]2016-07-03 06:44:00 Test Item Value Reference Range Interpretation Comments Total CK (test code = Total CK) 57 12-191 [facility] DCLLRXY9570-77-09 06:44:00 Test Item Value Reference Range Interpretation Comments Troponin-I (test code no gt See_Comment [Auto mated message] The = Troponin-I) system which g enerated this result transmit gaye reference range : <=0.40. The reference r ozzy was not used to interpr et this result as satish l/abnormal. [facility] [employer] [id number] 06:44:00 Test Item Value Reference Range Interpretation Comments Albumin Lvl (test code = Albumin Lvl) 3.5 3.5-5.0 [facility] [employer] [id number] 06:44:00 Test Item Value Reference Range Interpretation Comments Total Protein (test code = Total 7.0 6.4-8.4 Protein) [facility]organgir[facility]am [id number] 06:44:00 Test Item Value Reference Range Interpretation Comments ALT (test code = ALT) 19 See_Comment [Auto mated message] The system which ge nerated this result transmit gaye reference range : <=65. The reference range was not used to interpr et this result as satish l/abnormal. [facility] [employer] [id number] 06:44:00 Test Item Value Reference Range Interpretation Comments AST (test code = AST) 10 See_Comment [Auto mated message] The system which ge nerated this result transmit gaye reference range : <=37. The reference range was not used to interpr et this result as satish l/abnormal. [facility] [employer] [id number] 06:44:00 Test Item Value Reference Range Interpretation Comments Alk Phos (test code = Alk Phos) 79 39-136 [facility] [employer] [id number] 06:44:00 Test Item Value Reference Range Interpretation Comments Bili Total (test code = Bili Total) 0.4 0.2-1.3 [facility] [employer] [id number] 06:44:00 Test Item Value Reference Range Interpretation Comments Bili Direct (test code 0.1 See_Comment [Aut omated message] The = Bili Direct) system which generated this result tra nsmitted reference range : <=0.3. The reference r ozzy was not used to int erpret this result as satish l/abnormal. [facility]2016-07-03 06:44:00 Test Item Value Reference Range Interpretation Comments Globulin (test code = Globulin) 3.5 2.0-4.0 [facility]2016-07-03 06:44:00 Test Item Value Reference Range Interpretation Comments A/G Ratio (test code = A/G Ratio) 1.0 0.7-1.6 [facility]2016-07-03 06:44:00 Test Item Value Reference Range Interpretation Comments Bili Indirect (test 0.3 See_Comment [Automa gaye message] The code = Bili Indirect) system which generated this result tra nsmitted reference range : <=1.0. The reference r ozzy was not used to int erpret this result as normal/abnormal . [facility]2016-07-03 06:44:00 Test Item Value Reference Range Interpretation Comments eGFR (test code = eGFR) 107 [facility]2016-07-03 06:44:00 Test Item Value Reference Range Interpretation Comments BUN (test code = BUN) 8 7-22 [facility]2016-07-03 06:44:00 Test Item Value Reference Range Interpretation Comments Glucose Lvl (test code = Glucose Lvl) 91 70-99 [facility]2016-07-03 06:44:00 Test Item Value Reference Range Interpretation Comments Sodium Lvl (test code = Sodium Lvl) 138 135-145 [facility]2016-07-03 06:44:00 Test Item Value Reference Range Interpretation Comments Creatinine Lvl (test code = Creatinine 0.70 0.50-1.40 Lvl) [facility]2016-07-03 06:44:00 Test Item Value Reference Range Interpretation Comments Potassium Lvl (test code = Potassium 3.3 3.5-5.1 Lvl) [facility]2016-07-03 06:44:00 Test Item Value Reference Range Interpretation Comments CO2 (test code = CO2) 25 24-32 [place] 726156-07-03 06:44:00 Test Item Value Reference Range Interpretation Comments Chloride Lvl (test code = Chloride Lvl) 106 95-109 [facility]2016-07-03 06:44:00 Test Item Value Reference Range Interpretation Comments Calcium Lvl (test code = Calcium Lvl) 8.1 8.5-10.5 [facility]2016-07-03 06:44:00 Test Item Value Reference Range Interpretation Comments AGAP (test code = AGAP) 10.3 10.0-20.0 [facility]2016-07-03 06:44:00 Test Item Value Reference Range Interpretation Comments Magnesium Lvl (test code = Magnesium 2.2 1.8-2.4 Lvl) [facility]98 06:44:00 Test Item Value Reference Range Interpretation Comments S Preg (test code = S Negative *NA*(02/13/16 Preg) 1:44 AM) [facility]acmozpZKFTSRCXQB9847-97-43 06:44:00 Test Item Value Reference Range Interpretation Comments Basophils (test code = 0.1 See_Comment [Aut omated message] The Basophils) system which ge nerated this result tra nsmitted reference range : <=1.0. The reference r ozzy was not used to int erpret this result as normal/abnormal . [facility] CenterWvadgxtHGBJEKLYZC1780-91-59 06:44:00 Test Item Value Reference Range Interpretation Comments Monocytes # (test code 0.3 See_Comment [Aut omated message] The = Monocytes #) system which generated this result tra nsmitted reference range : <=0.8. The reference r ozzy was not used to int erpret this result as normal/abnormal . [facility] CenterWsrczhzXPNGJACCAZ3552-27-28 06:44:00 Test Item Value Reference Range Interpretation Comments Eosinophils # (test code 0.1 See_Comment [A utomated message] The = Eosinophils #) system whic h generated this result tra nsmitted reference range : <=0.5. The reference r ozzy was not used to int erpret this result as normal/abnormal . [facility] CenterOwmsviqXRKDHWLZNB4433-09-20 06:44:00 Test Item Value Reference Range Interpretation Comments Segs-Bands # (test code = Segs-Bands #) 9.3 1.5-8.1 [facility] CenterCjzempaBGCXJJVVFV0044-87-93 06:44:00 Test Item Value Reference Range Interpretation Comments Lymphocytes # (test code = Lymphocytes 2.6 1.0-5.5 #) [facility] CenterTprhobgJZEYOJKMFE0326-34-47 06:44:00 Test Item Value Reference Range Interpretation Comments Basophils # (test code 0.0 See_Comment [Aut omated message] The = Basophils #) system which generated this result tra nsmitted reference range : <=0.2. The reference r ozzy was not used to int erpret this result as normal/abnormal . [facility] CenterQiadybpHYEKKFEYWQ3730-01-34 06:44:00 Test Item Value Reference Range Interpretation Comments Microcyte (test code = 1+ *ABN*(02/13/16 1:44 Microcyte) AM) [facility] CenterCvqweedLBKVZQUYZL9027-12-04 06:44:00 Test Item Value Reference Range Interpretation Comments Giant Plt (test code Moderate *ABN*(02/13/16 = Giant Plt) 1:44 AM) [facility] CenterSkqffntBUCMCHWRGD5969-80-46 06:44:00 Test Item Value Reference Range Interpretation Comments Segs (test code = Segs) 75.2 45.0-75.0 [facility] CenterRrtndzrWTHUXIJQMC8848-23-07 06:44:00 Test Item Value Reference Range Interpretation Comments Hypochrom (test code = 1+ (02/13/16 1:44 AM) Hypochrom) [facility] CenterJfdozblAVSWMBOCYG7342-76-39 06:44:00 Test Item Value Reference Range Interpretation Comments Eosinophils (test code = 0.7 See_Comment [A utomated message] The Eosinophils) system which ge nerated this result tra nsmitted reference range : <=4.0. The reference r ozzy was not used to int erpret this result as normal/abnormal . [facility] CenterTiskbqcVLDZEAFPIY9462-51-23 06:44:00 Test Item Value Reference Range Interpretation Comments Lymphocytes (test code = Lymphocytes) 21.3 20.0-40.0 [facility] CenterHkocydmMADBIUGDNF8161-71-70 06:44:00 Test Item Value Reference Range Interpretation Comments Monocytes (test code = Monocytes) 2.7 2.0-12.0 [facility] CenterVpqpwqaSDAEIYWLVF4862-09-33 06:44:00 Test Item Value Reference Range Interpretation Comments MPV (test code = MPV) 9.5 7.4-10.4 [facility] CenterAszrtphZOVANWNQUR1343-78-09 06:44:00 Test Item Value Reference Range Interpretation Comments RDW (test code = RDW) 17.8 11.5-14.5 [facility] CenterOytzsmwDVNPKWOBJN1407-81-56 06:44:00 Test Item Value Reference Range Interpretation Comments MCV (test code = MCV) 73.2 80.0-98.0 [facility] CenterDszhcjuEMKNKOOVCT8577-21-91 06:44:00 Test Item Value Reference Range Interpretation Comments MCH (test code = MCH) 21.9 pg 27.0-31.0 [facility] CenterDpkyqfnQPBHYNAZHO3898-99-80 06:44:00 Test Item Value Reference Range Interpretation Comments Hct (test code = Hct) 27.2 36.0-48.0 [facility] CenterAgekgjlRSXSZBVCYX1048-43-93 06:44:00 Test Item Value Reference Range Interpretation Comments MCHC (test code = MCHC) 29.9 32.0-36.0 [facility] CenterQkjhzapKIUQAEWIXS9199-73-85 06:44:00 Test Item Value Reference Range Interpretation Comments Platelet (test code = Platelet) 400 133-450 [facility] CenterIoqwltaNJAKIMASXN4943-77-63 06:44:00 Test Item Value Reference Range Interpretation Comments WBC (test code = WBC) 12.4 3.7-10.4 [facility] CenterRdbmvflZXGQFAAGZV2363-96-43 06:44:00 Test Item Value Reference Range Interpretation Comments RBC (test code = RBC) 3.72 4.20-5.40 [facility] CenterQldncfuWTLKNEAZIE8071-30-14 06:44:00 Test Item Value Reference Range Interpretation Comments Hgb (test code = Hgb) 8.1 12.0-16.0 [facility] CenterLhfxrzsWZINRKUKNG3885-66-49 06:44:00 Test Item Value Reference Range Interpretation Comments PTT (test code = PTT) 27.2 s 22.9-35.8 [facility] CenterMzmzkbcOEUVIZBZXN5930-19-92 06:44:00 Test Item Value Reference Range Interpretation Comments PT (test code = PT) 14.7 s 12.0-14.7 [facility]RQEBSZBJFF4540-31-18 06:44:00 Test Item Value Reference Range Interpretation Comments INR (test code = INR) 1.12 0.85-1.17 [facility] [employer] [id number] 06:44:00 Test Item Value Reference Range Interpretation Comments Antibody Scrn (test Negative (02/13/16 1:44 code = Antibody Scrn) AM) [facility] [employer] JLCQYYJ7529-47-70 06:44:00 Test Item Value Reference Range Interpretation Comments ABO/Rh (test code = ABO/Rh) A POS [facility] [employer] [id number] 06:44:00 Test Item Value Reference Range Interpretation Comments CK MB Index (test 1.6 See_Comment [Automate d message] The code = CK MB Index) [facility] generated this result transmit gaye reference range : <=2.5. The reference range was not used to interpr et this result as satish l/abnormal. [employer] OFJKTPM5078-25-73 06:44:00 Test Item Value Reference Range Interpretation Comments CK MB (test code = CK MB) 0.9 0.5-3.6 [facility] [employer] [id number] 06:44:00 Test Item Value Reference Range Interpretation Comments Total CK (test code = Total CK) 57 12-191 [facility] [employer] [id number] 06:44:00 Test Item Value Reference Range Interpretation Comments Troponin-I (test code no gt See_Comment [Auto mated message] The = Troponin-I) system which g enerated this result transmit gaye reference range : <=0.40. The reference r ozzy was not used to interpr et this result as satish l/abnormal. [employer] [id number] 06:44:00 Test Item Value Reference Range Interpretation Comments Albumin Lvl (test code = Albumin Lvl) 3.5 3.5-5.0 [facility] [id number] 06:44:00 Test Item Value Reference Range Interpretation Comments Total Protein (test code = Total 7.0 6.4-8.4 Protein) [facility] [employer] [id number] 06:44:00 Test Item Value Reference Range Interpretation Comments ALT (test code = ALT) 19 See_Comment [Auto mated message] The system which ge nerated this result transmit gaye reference range : <=65. The reference range was not used to interpr et this result as satish l/abnormal. [employer] [id number] 06:44:00 Test Item Value Reference Range Interpretation Comments AST (test code = AST) 10 See_Comment [Auto mated message] The system which ge nerated this result transmit gaye reference range : <=37. The reference range was not used to interpr et this result as satish l/abnormal. [place] 726156-07-03 06:44:00 Test Item Value Reference Range Interpretation Comments Alk Phos (test code = Alk Phos) 79 39-136 [place] 726156-07-03 06:44:00 Test Item Value Reference Range Interpretation Comments Bili Total (test code = Bili Total) 0.4 0.2-1.3 [place] 726156-07-03 06:44:00 Test Item Value Reference Range Interpretation Comments Bili Direct (test code 0.1 See_Comment [Aut omated message] The = Bili Direct) system which generated this result tra nsmitted reference range : <=0.3. The reference r ozzy was not used to int erpret this result as satish l/abnormal. [facility]2016-07-03 06:44:00 Test Item Value Reference Range Interpretation Comments Globulin (test code = Globulin) 3.5 2.0-4.0 [facility]2016-07-03 06:44:00 Test Item Value Reference Range Interpretation Comments A/G Ratio (test code = A/G Ratio) 1.0 0.7-1.6 [facility]2016-07-03 06:44:00 Test Item Value Reference Range Interpretation Comments Bili Indirect (test 0.3 See_Comment [Automa gaye message] The code = Bili Indirect) system which generated this result tra nsmitted reference range : <=1.0. The reference r ozzy was not used to int erpret this result as normal/abnormal . [facility]2016-07-03 06:44:00 Test Item Value Reference Range Interpretation Comments eGFR (test code = eGFR) 107 [facility]2016-07-03 06:44:00 Test Item Value Reference Range Interpretation Comments BUN (test code = BUN) 8 7-22 [facility]2016-07-03 06:44:00 Test Item Value Reference Range Interpretation Comments Glucose Lvl (test code = Glucose Lvl) 91 70-99 [facility]2016-07-03 06:44:00 Test Item Value Reference Range Interpretation Comments Sodium Lvl (test code = Sodium Lvl) 138 135-145 [facility]2016-07-03 06:44:00 Test Item Value Reference Range Interpretation Comments Creatinine Lvl (test code = Creatinine 0.70 0.50-1.40 Lvl) [facility]2016-07-03 06:44:00 Test Item Value Reference Range Interpretation Comments Potassium Lvl (test code = Potassium 3.3 3.5-5.1 Lvl) [facility]2016-07-03 06:44:00 Test Item Value Reference Range Interpretation Comments CO2 (test code = CO2) 25 24-32 [facility]2016-07-03 06:44:00 Test Item Value Reference Range Interpretation Comments Chloride Lvl (test code = Chloride Lvl) 106 95-109 [facility]2016-07-03 06:44:00 Test Item Value Reference Range Interpretation Comments Calcium Lvl (test code = Calcium Lvl) 8.1 8.5-10.5 [facility]2016-07-03 06:44:00 Test Item Value Reference Range Interpretation Comments AGAP (test code = AGAP) 10.3 10.0-20.0 [facility]2016-07-03 06:44:00 Test Item Value Reference Range Interpretation Comments Magnesium Lvl (test code = Magnesium 2.2 1.8-2.4 Lvl) [facility]umnQLXZISHKTRNOA6922-18-93 06:44:00 Test Item Value Reference Range Interpretation Comments S Preg (test code = S Negative *NA*(02/13/16 Preg) 1:44 AM) [facility] CenterKkczspdYVYLPUEVBX1748-27-66 06:44:00 Test Item Value Reference Range Interpretation Comments Basophils (test code = 0.1 See_Comment [Aut omated message] The Basophils) system which ge nerated this result tra nsmitted reference range : <=1.0. The reference r ozzy was not used to int erpret this result as normal/abnormal . [facility] CenterRvmbkcdZYKCSQEFWN8958-72-73 06:44:00 Test Item Value Reference Range Interpretation Comments Monocytes # (test code 0.3 See_Comment [Aut omated message] The = Monocytes #) system which generated this result tra nsmitted reference range : <=0.8. The reference r ozzy was not used to int erpret this result as normal/abnormal . [facility] CenterLrtkwoaLXPYOMMRXG4568-28-66 06:44:00 Test Item Value Reference Range Interpretation Comments Eosinophils # (test code 0.1 See_Comment [A utomated message] The = Eosinophils #) system whic h generated this result tra nsmitted reference range : <=0.5. The reference r ozzy was not used to int erpret this result as normal/abnormal . [facility] CenterSpyviajPAOUAXWVTD9350-06-39 06:44:00 Test Item Value Reference Range Interpretation Comments Segs-Bands # (test code = Segs-Bands #) 9.3 1.5-8.1 [facility] CenterUymsoniYDMUIHRCQM0091-81-24 06:44:00 Test Item Value Reference Range Interpretation Comments Lymphocytes # (test code = Lymphocytes 2.6 1.0-5.5 #) [facility] CenterMgfvikoKGXWJUKPYR3965-74-20 06:44:00 Test Item Value Reference Range Interpretation Comments Basophils # (test code 0.0 See_Comment [Aut omated message] The = Basophils #) system which generated this result tra nsmitted reference range : <=0.2. The reference r ozzy was not used to int erpret this result as normal/abnormal . [facility] CenterSxuoeeyREKVCHGRFU6008-63-65 06:44:00 Test Item Value Reference Range Interpretation Comments Microcyte (test code = 1+ *ABN*(02/13/16 1:44 Microcyte) AM) [facility] CenterRudsakoKKEAIQDKDW5649-79-93 06:44:00 Test Item Value Reference Range Interpretation Comments Giant Plt (test code Moderate *ABN*(02/13/16 = Giant Plt) 1:44 AM) [facility] CenterDmdeznqKHRKROUADN5956-87-49 06:44:00 Test Item Value Reference Range Interpretation Comments Segs (test code = Segs) 75.2 45.0-75.0 [facility] CenterBjycqyhWBDQBTDHRA2257-61-40 06:44:00 Test Item Value Reference Range Interpretation Comments Hypochrom (test code = 1+ (02/13/16 1:44 AM) Hypochrom) [facility] CenterIdbgdmsPQQZWLRODK9398-43-13 06:44:00 Test Item Value Reference Range Interpretation Comments Eosinophils (test code = 0.7 See_Comment [A utomated message] The Eosinophils) system which ge nerated this result tra nsmitted reference range : <=4.0. The reference r ozzy was not used to int erpret this result as normal/abnormal . [facility] CenterTmyjtfeKURWSLDQBQ8061-36-83 06:44:00 Test Item Value Reference Range Interpretation Comments Lymphocytes (test code = Lymphocytes) 21.3 20.0-40.0 [facility] CenterSseqasdQUFKFBPVGF1138-04-86 06:44:00 Test Item Value Reference Range Interpretation Comments Monocytes (test code = Monocytes) 2.7 2.0-12.0 [facility] CenterZncfknwSFYVGSCOQR5431-91-24 06:44:00 Test Item Value Reference Range Interpretation Comments MPV (test code = MPV) 9.5 7.4-10.4 [facility] CenterXxoieisCAHZONBSET6616-96-26 06:44:00 Test Item Value Reference Range Interpretation Comments RDW (test code = RDW) 17.8 11.5-14.5 [facility] CenterYwnorjaDMIVNOGDBS6536-57-26 06:44:00 Test Item Value Reference Range Interpretation Comments MCV (test code = MCV) 73.2 80.0-98.0 [facility] CenterJatcoojREUWODLTPF4569-92-99 06:44:00 Test Item Value Reference Range Interpretation Comments MCH (test code = MCH) 21.9 pg 27.0-31.0 [facility] CenterFqpabqjZAUBXODEDF7499-48-52 06:44:00 Test Item Value Reference Range Interpretation Comments Hct (test code = Hct) 27.2 36.0-48.0 [facility] CenterRmripcuDXSFXJDICQ6444-47-20 06:44:00 Test Item Value Reference Range Interpretation Comments MCHC (test code = MCHC) 29.9 32.0-36.0 [facility] CenterMsygaeiATFTZKUNPA7246-26-39 06:44:00 Test Item Value Reference Range Interpretation Comments Platelet (test code = Platelet) 400 133-450 [facility] CenterPgmptlbQXWBGRKXVB8139-42-46 06:44:00 Test Item Value Reference Range Interpretation Comments WBC (test code = WBC) 12.4 3.7-10.4 [facility] CenterCyljzloACRRPMKSYQ2588-23-32 06:44:00 Test Item Value Reference Range Interpretation Comments RBC (test code = RBC) 3.72 4.20-5.40 [facility] CenterWslzmhkRQQVMMVNGN8191-88-91 06:44:00 Test Item Value Reference Range Interpretation Comments Hgb (test code = Hgb) 8.1 12.0-16.0 [facility] AwxhriqWRDILUMIAI3726-60-94 06:44:00 Test Item Value Reference Range Interpretation Comments PTT (test code = PTT) 27.2 s 22.9-35.8 [facility] XyixsizJNNCYANAEM5834-56-94 06:44:00 Test Item Value Reference Range Interpretation Comments PT (test code = PT) 14.7 s 12.0-14.7 [facility] IfkvraqMXCBVHALQW2978-25-98 06:44:00 Test Item Value Reference Range Interpretation Comments INR (test code = INR) 1.12 0.85-1.17 [employer] [id number] 06:44:00 Test Item Value Reference Range Interpretation Comments Antibody Scrn (test Negative (02/13/16 1:44 code = Antibody Scrn) AM) [facility] [employer] [id number] 06:44:00 Test Item Value Reference Range Interpretation Comments ABO/Rh (test code = ABO/Rh) A POS [employer]2016-07-03 06:44:00 Test Item Value Reference Range Interpretation Comments CK MB Index (test 1.6 See_Comment [Automate d message] The code = CK MB Index) [facility] generated this result transmit gaye reference range : <=2.5. The reference range was not used to interpr et this result as satish l/abnormal. [employer]2016-07-03 06:44:00 Test Item Value Reference Range Interpretation Comments CK MB (test code = CK MB) 0.9 0.5-3.6 [facility] [employer]2016-07-03 06:44:00 Test Item Value Reference Range Interpretation Comments Total CK (test code = Total CK) 57 12-191 [facility] [employer]2016-07-03 06:44:00 Test Item Value Reference Range Interpretation Comments Troponin-I (test code no gt See_Comment [Auto mated message] The = Troponin-I) system which g enerated this result transmit gaye reference range : <=0.40. The reference r ozzy was not used to interpr et this result as satish l/abnormal. [employer] [id number] 06:44:00 Test Item Value Reference Range Interpretation Comments Albumin Lvl (test code = Albumin Lvl) 3.5 3.5-5.0 [facility]ClipDA[facility] [address]WUHDP7219-49-03 06:44:00 Test Item Value Reference Range Interpretation Comments Total Protein (test code = Total 7.0 6.4-8.4 Protein) [facility]2016-07-03 06:44:00 Test Item Value Reference Range Interpretation Comments ALT (test code = ALT) 19 See_Comment [Auto mated message] The system which ge nerated this result transmit gaye reference range : <=65. The reference range was not used to interpr et this result as satish l/abnormal. [facility] CenterFlyClipDAVID [place] [address]RWRSM0905-76-34 06:44:00 Test Item Value Reference Range Interpretation Comments AST (test code = AST) 10 See_Comment [Auto mated message] The system which ge nerated this result transmit gaye reference range : <=37. The reference range was not used to interpr et this result as satish l/abnormal. [facility]2016-07-03 06:44:00 Test Item Value Reference Range Interpretation Comments Alk Phos (test code = Alk Phos) 79 39-136 [facility]2016-07-03 06:44:00 Test Item Value Reference Range Interpretation Comments Bili Total (test code = Bili Total) 0.4 0.2-1.3 [place] 726156-07-03 06:44:00 Test Item Value Reference Range Interpretation Comments Bili Direct (test code 0.1 See_Comment [Aut omated message] The = Bili Direct) system which generated this result tra nsmitted reference range : <=0.3. The reference r ozzy was not used to int erpret this result as satish l/abnormal. [facility] CenterFlyClipDUKE UNIVERSITY HOSPITALSZNXJ8807-94-45 06:44:00 Test Item Value Reference Range Interpretation Comments Globulin (test code = Globulin) 3.5 2.0-4.0 [facility] [id number] 06:44:00 Test Item Value Reference Range Interpretation Comments A/G Ratio (test code = A/G Ratio) 1.0 0.7-1.6 [facility] CenterFlyClipDAVID [place] [address]VPVKV7529-75-97 06:44:00 Test Item Value Reference Range Interpretation Comments Bili Indirect (test 0.3 See_Comment [Automa gaye message] The code = Bili Indirect) system which generated this result tra nsmitted reference range : <=1.0. The reference r ozzy was not used to int erpret this result as normal/abnormal . [facility]2016-07-03 06:44:00 Test Item Value Reference Range Interpretation Comments eGFR (test code = eGFR) 107 [facility]2016-07-03 06:44:00 Test Item Value Reference Range Interpretation Comments BUN (test code = BUN) 8 7-22 [facility]2016-07-03 06:44:00 Test Item Value Reference Range Interpretation Comments Glucose Lvl (test code = Glucose Lvl) 91 70-99 [facility]2016-07-03 06:44:00 Test Item Value Reference Range Interpretation Comments Sodium Lvl (test code = Sodium Lvl) 138 135-145 [facility]2016-07-03 06:44:00 Test Item Value Reference Range Interpretation Comments Creatinine Lvl (test code = Creatinine 0.70 0.50-1.40 Lvl) [facility]2016-07-03 06:44:00 Test Item Value Reference Range Interpretation Comments Potassium Lvl (test code = Potassium 3.3 3.5-5.1 Lvl) [facility]2016-07-03 06:44:00 Test Item Value Reference Range Interpretation Comments CO2 (test code = CO2) 25 24-32 [facility]2016-07-03 06:44:00 Test Item Value Reference Range Interpretation Comments Chloride Lvl (test code = Chloride Lvl) 106 95-109 [facility]2016-07-03 06:44:00 Test Item Value Reference Range Interpretation Comments Calcium Lvl (test code = Calcium Lvl) 8.1 8.5-10.5 [facility]2016-07-03 06:44:00 Test Item Value Reference Range Interpretation Comments AGAP (test code = AGAP) 10.3 10.0-20.0 [facility]2016-07-03 06:44:00 Test Item Value Reference Range Interpretation Comments Magnesium Lvl (test code = Magnesium 2.2 1.8-2.4 Lvl) [facility]xzbduhIBSOGLVRXLLML2244-89-19 06:44:00 Test Item Value Reference Range Interpretation Comments S Preg (test code = S Negative *NA*(02/13/16 Preg) 1:44 AM) [facility]CdnmvgoQHITMSRXAX9204-19-34 06:44:00 Test Item Value Reference Range Interpretation Comments Basophils (test code = 0.1 See_Comment [Aut omated message] The Basophils) system which ge nerated this result tra nsmitted reference range : <=1.0. The reference r ozzy was not used to int erpret this result as normal/abnormal . [facility] CenterMggejccYJUQOZZMLI7050-14-33 06:44:00 Test Item Value Reference Range Interpretation Comments Monocytes # (test code 0.3 See_Comment [Aut omated message] The = Monocytes #) system which generated this result tra nsmitted reference range : <=0.8. The reference r ozzy was not used to int erpret this result as normal/abnormal . [facility] CenterYuhgbepBUWOFYOCJP9322-37-50 06:44:00 Test Item Value Reference Range Interpretation Comments Eosinophils # (test code 0.1 See_Comment [A utomated message] The = Eosinophils #) system whic h generated this result tra nsmitted reference range : <=0.5. The reference r ozzy was not used to int erpret this result as normal/abnormal . [facility] CenterJvzlhksJZWPZMUZSN4291-96-70 06:44:00 Test Item Value Reference Range Interpretation Comments Segs-Bands # (test code = Segs-Bands #) 9.3 1.5-8.1 [facility] CenterUoybmayGEEJBARDHZ3701-28-17 06:44:00 Test Item Value Reference Range Interpretation Comments Lymphocytes # (test code = Lymphocytes 2.6 1.0-5.5 #) [facility] CenterSjafezkQYBKOLNGXG9969-85-56 06:44:00 Test Item Value Reference Range Interpretation Comments Basophils # (test code 0.0 See_Comment [Aut omated message] The = Basophils #) system which generated this result tra nsmitted reference range : <=0.2. The reference r ozzy was not used to int erpret this result as normal/abnormal . [facility]GcopvctDMEKBFJDAD4900-18-33 06:44:00 Test Item Value Reference Range Interpretation Comments Microcyte (test code = 1+ *ABN*(02/13/16 1:44 Microcyte) AM) [facility] CenterOkefkuaLWBHBIPTKT0718-24-93 06:44:00 Test Item Value Reference Range Interpretation Comments Giant Plt (test code Moderate *ABN*(02/13/16 = Giant Plt) 1:44 AM) [facility] CenterUvmbjfwUVJRYUOXZX1954-55-57 06:44:00 Test Item Value Reference Range Interpretation Comments Segs (test code = Segs) 75.2 45.0-75.0 [facility] CenterVfwvtjhGGBBLRBONC3625-40-54 06:44:00 Test Item Value Reference Range Interpretation Comments Hypochrom (test code = 1+ (02/13/16 1:44 AM) Hypochrom) [facility] CenterMgvhrsvAKXJRCJJAK9760-44-65 06:44:00 Test Item Value Reference Range Interpretation Comments Eosinophils (test code = 0.7 See_Comment [A utomated message] The Eosinophils) system which ge nerated this result tra nsmitted reference range : <=4.0. The reference r ozzy was not used to int erpret this result as normal/abnormal . [facility] CenterTfrittlHNJUXUQSGG3583-00-72 06:44:00 Test Item Value Reference Range Interpretation Comments Lymphocytes (test code = Lymphocytes) 21.3 20.0-40.0 [facility] CenterNiovadbFARYXIAMRY5451-74-23 06:44:00 Test Item Value Reference Range Interpretation Comments Monocytes (test code = Monocytes) 2.7 2.0-12.0 [facility] CenterXfpyyjqNOFVPCEEIU4920-83-42 06:44:00 Test Item Value Reference Range Interpretation Comments MPV (test code = MPV) 9.5 7.4-10.4 [facility] CenterLmcirfeDVXBMHDEDP4938-37-01 06:44:00 Test Item Value Reference Range Interpretation Comments RDW (test code = RDW) 17.8 11.5-14.5 [facility] CenterFvelplaKOXTMISQJF2674-33-33 06:44:00 Test Item Value Reference Range Interpretation Comments MCV (test code = MCV) 73.2 80.0-98.0 [facility] CenterRugunugOPSXQVMBWE0478-84-08 06:44:00 Test Item Value Reference Range Interpretation Comments MCH (test code = MCH) 21.9 pg 27.0-31.0 [facility] CenterHebnhujBDNIJHEYWK1390-43-57 06:44:00 Test Item Value Reference Range Interpretation Comments Hct (test code = Hct) 27.2 36.0-48.0 [facility] CenterXtuwdlwEAUOFTYJAY7588-96-60 06:44:00 Test Item Value Reference Range Interpretation Comments MCHC (test code = MCHC) 29.9 32.0-36.0 [facility] HoxmyqyDSCSJECBEF7303-53-60 06:44:00 Test Item Value Reference Range Interpretation Comments Platelet (test code = Platelet) 400 133-450 [facility] CenterXljzpzqBSQBWAIRVU3416-99-67 06:44:00 Test Item Value Reference Range Interpretation Comments WBC (test code = WBC) 12.4 3.7-10.4 [facility] UeytlpmLGWPKDQNCM1296-22-43 06:44:00 Test Item Value Reference Range Interpretation Comments RBC (test code = RBC) 3.72 4.20-5.40 [facility] AgsjdlbULALAODFYV1903-62-83 06:44:00 Test Item Value Reference Range Interpretation Comments Hgb (test code = Hgb) 8.1 12.0-16.0 [facility] CenterEhlpiqdQSQIMSATWC0945-48-42 06:44:00 Test Item Value Reference Range Interpretation Comments PTT (test code = PTT) 27.2 s 22.9-35.8 [facility] WgvgxaeXWVVKOKZCM9443-79-47 06:44:00 Test Item Value Reference Range Interpretation Comments PT (test code = PT) 14.7 s 12.0-14.7 [facility] CjrsmixYPXIZSESCJ8860-29-56 06:44:00 Test Item Value Reference Range Interpretation Comments INR (test code = INR) 1.12 0.85-1.17 [facility] [employer] EBHDAXK0709-43-53 06:44:00 Test Item Value Reference Range Interpretation Comments Antibody Scrn (test Negative (02/13/16 1:44 code = Antibody Scrn) AM) [employer] [id number] 06:44:00 Test Item Value Reference Range Interpretation Comments ABO/Rh (test code = ABO/Rh) A POS [facility] [employer] RQCNKSA4022-09-44 06:44:00 Test Item Value Reference Range Interpretation Comments CK MB Index (test 1.6 See_Comment [Automate d message] The code = CK MB Index) system [facility] generated this result transmit gaye reference range : <=2.5. The reference range was not used to interpr et this result as satish l/abnormal. [employer]2016-07-03 06:44:00 Test Item Value Reference Range Interpretation Comments CK MB (test code = CK MB) 0.9 0.5-3.6 [facility] CenterChina Communications Services Corporation SZORAFD4804-78-04 06:44:00 Test Item Value Reference Range Interpretation Comments Total CK (test code = Total CK) 57 12-191 [facility] OISTPWP0254-22-76 06:44:00 Test Item Value Reference Range Interpretation Comments Troponin-I (test code no gt See_Comment [Auto mated message] The = Troponin-I) system which g enerated this result transmit gaye reference range : <=0.40. The reference r ozzy was not used to interpr et this result as satish l/abnormal. [facility] [employer] [id number] 06:44:00 Test Item Value Reference Range Interpretation Comments Albumin Lvl (test code = Albumin Lvl) 3.5 3.5-5.0 [facility] [employer] [id number] 06:44:00 Test Item Value Reference Range Interpretation Comments Total Protein (test code = Total 7.0 6.4-8.4 Protein) [facility] Centerorgangir.am LJDHN7812-58-41 06:44:00 Test Item Value Reference Range Interpretation Comments ALT (test code = ALT) 19 See_Comment [Auto mated message] The system which ge nerated this result transmit gaye reference range : <=65. The reference range was not used to interpr et this result as satish l/abnormal. [facility] [employer] [id number] 06:44:00 Test Item Value Reference Range Interpretation Comments AST (test code = AST) 10 See_Comment [Auto mated message] The system which ge nerated this result transmit gaye reference range : <=37. The reference range was not used to interpr et this result as satish l/abnormal. [facility] [employer] [id number] 06:44:00 Test Item Value Reference Range Interpretation Comments Alk Phos (test code = Alk Phos) 79 39-136 [facility] [employer] [id number] 06:44:00 Test Item Value Reference Range Interpretation Comments Bili Total (test code = Bili Total) 0.4 0.2-1.3 [facility] [employer] [id number] 06:44:00 Test Item Value Reference Range Interpretation Comments Bili Direct (test code 0.1 See_Comment [Aut omated message] The = Bili Direct) system which generated this result tra nsmitted reference range : <=0.3. The reference r ozzy was not used to int erpret this result as satish l/abnormal. [facility]2016-07-03 06:44:00 Test Item Value Reference Range Interpretation Comments Globulin (test code = Globulin) 3.5 2.0-4.0 [facility]2016-07-03 06:44:00 Test Item Value Reference Range Interpretation Comments A/G Ratio (test code = A/G Ratio) 1.0 0.7-1.6 [place] 726156-07-03 06:44:00 Test Item Value Reference Range Interpretation Comments Bili Indirect (test 0.3 See_Comment [Automa gaye message] The code = Bili Indirect) system which generated this result tra nsmitted reference range : <=1.0. The reference r ozzy was not used to int erpret this result as normal/abnormal . [facility]2016-07-03 06:44:00 Test Item Value Reference Range Interpretation Comments eGFR (test code = eGFR) 107 [facility]2016-07-03 06:44:00 Test Item Value Reference Range Interpretation Comments BUN (test code = BUN) 8 7-22 [facility]2016-07-03 06:44:00 Test Item Value Reference Range Interpretation Comments Glucose Lvl (test code = Glucose Lvl) 91 70-99 [facility]2016-07-03 06:44:00 Test Item Value Reference Range Interpretation Comments Sodium Lvl (test code = Sodium Lvl) 138 135-145 [facility]2016-07-03 06:44:00 Test Item Value Reference Range Interpretation Comments Creatinine Lvl (test code = Creatinine 0.70 0.50-1.40 Lvl) [facility]2016-07-03 06:44:00 Test Item Value Reference Range Interpretation Comments Potassium Lvl (test code = Potassium 3.3 3.5-5.1 Lvl) [facility]2016-07-03 06:44:00 Test Item Value Reference Range Interpretation Comments CO2 (test code = CO2) 25 24-32 [facility]2016-07-03 06:44:00 Test Item Value Reference Range Interpretation Comments Chloride Lvl (test code = Chloride Lvl) 106 95-109 [facility]2016-07-03 06:44:00 Test Item Value Reference Range Interpretation Comments Calcium Lvl (test code = Calcium Lvl) 8.1 8.5-10.5 [facility]2016-07-03 06:44:00 Test Item Value Reference Range Interpretation Comments AGAP (test code = AGAP) 10.3 10.0-20.0 [facility]2016-07-03 06:44:00 Test Item Value Reference Range Interpretation Comments Magnesium Lvl (test code = Magnesium 2.2 1.8-2.4 Lvl) [facility]PamkpelVJEWSHOZJNMKW1482-51-00 06:44:00 Test Item Value Reference Range Interpretation Comments S Preg (test code = S Negative *NA*(02/13/16 Preg) 1:44 AM) [facility] CenterIrjffhaWFJDPCVHTO4561-67-65 06:44:00 Test Item Value Reference Range Interpretation Comments Basophils (test code = 0.1 See_Comment [Aut omated message] The Basophils) system which ge nerated this result tra nsmitted reference range : <=1.0. The reference r ozzy was not used to int erpret this result as normal/abnormal . [facility] CenterGvqertkJKQSHXEJSV6173-48-64 06:44:00 Test Item Value Reference Range Interpretation Comments Monocytes # (test code 0.3 See_Comment [Aut omated message] The = Monocytes #) system which generated this result tra nsmitted reference range : <=0.8. The reference r ozzy was not used to int erpret this result as normal/abnormal . [facility] CenterZdkrnocFKDKZVAYJB3408-46-39 06:44:00 Test Item Value Reference Range Interpretation Comments Eosinophils # (test code 0.1 See_Comment [A utomated message] The = Eosinophils #) system whic h generated this result tra nsmitted reference range : <=0.5. The reference r ozzy was not used to int erpret this result as normal/abnormal . [facility] CenterItiipqySPKLUFFEWB4384-91-58 06:44:00 Test Item Value Reference Range Interpretation Comments Segs-Bands # (test code = Segs-Bands #) 9.3 1.5-8.1 [facility] CenterTxobolyOOJFPVYPDR0435-16-03 06:44:00 Test Item Value Reference Range Interpretation Comments Lymphocytes # (test code = Lymphocytes 2.6 1.0-5.5 #) [facility] CenterHlhifnuNFBEESBUJT0239-82-80 06:44:00 Test Item Value Reference Range Interpretation Comments Basophils # (test code 0.0 See_Comment [Aut omated message] The = Basophils #) system which generated this result tra nsmitted reference range : <=0.2. The reference r ozzy was not used to int erpret this result as normal/abnormal . [facility] CenterQmmzaqzVTCYYIOBOM2151-19-49 06:44:00 Test Item Value Reference Range Interpretation Comments Microcyte (test code = 1+ *ABN*(02/13/16 1:44 Microcyte) AM) [facility] CenterQptaipvHXQCYIUJMF3292-77-50 06:44:00 Test Item Value Reference Range Interpretation Comments Giant Plt (test code Moderate *ABN*(02/13/16 = Giant Plt) 1:44 AM) [facility] CenterKtceejyFEBTHEYQMV4751-06-15 06:44:00 Test Item Value Reference Range Interpretation Comments Segs (test code = Segs) 75.2 45.0-75.0 [facility] CenterIgbrduhABNFPXJDUC7357-18-46 06:44:00 Test Item Value Reference Range Interpretation Comments Hypochrom (test code = 1+ (02/13/16 1:44 AM) Hypochrom) [facility] CenterHyopctuTTUZSIEMVB3913-07-51 06:44:00 Test Item Value Reference Range Interpretation Comments Eosinophils (test code = 0.7 See_Comment [A utomated message] The Eosinophils) system which ge nerated this result tra nsmitted reference range : <=4.0. The reference r ozzy was not used to int erpret this result as normal/abnormal . [facility] CenterGuywjmdPZUHJIXMTF9935-01-39 06:44:00 Test Item Value Reference Range Interpretation Comments Lymphocytes (test code = Lymphocytes) 21.3 20.0-40.0 [facility] CenterUqnziolOTZOKZENNO9888-40-70 06:44:00 Test Item Value Reference Range Interpretation Comments Monocytes (test code = Monocytes) 2.7 2.0-12.0 [facility] CenterHrwkmaiNANXKLTRRH9094-31-07 06:44:00 Test Item Value Reference Range Interpretation Comments MPV (test code = MPV) 9.5 7.4-10.4 [facility]LhebpemCEMQMWBSOL2726-42-60 06:44:00 Test Item Value Reference Range Interpretation Comments RDW (test code = RDW) 17.8 11.5-14.5 [facility]WestPoysibqANHEKEGGQR4813-80-00 06:44:00 Test Item Value Reference Range Interpretation Comments MCV (test code = MCV) 73.2 80.0-98.0 [facility]WestMzwxmyqBOBLKLZZBU4119-10-07 06:44:00 Test Item Value Reference Range Interpretation Comments MCH (test code = MCH) 21.9 pg 27.0-31.0 [facility]WestEtwfixhOMFDJIYMYS3273-23-36 06:44:00 Test Item Value Reference Range Interpretation Comments Hct (test code = Hct) 27.2 36.0-48.0 [facility]WestBinokuxXAEUAKFTJB4876-05-09 06:44:00 Test Item Value Reference Range Interpretation Comments MCHC (test code = MCHC) 29.9 32.0-36.0 [facility]WestXikccbbDEUPKSHGPL0660-36-90 06:44:00 Test Item Value Reference Range Interpretation Comments Platelet (test code = Platelet) 400 133-450 [facility]WestIofslrwKCOEBDMONF6446-35-05 06:44:00 Test Item Value Reference Range Interpretation Comments WBC (test code = WBC) 12.4 3.7-10.4 [facility]WestNhprbrkGKWOHQIHJD1450-62-65 06:44:00 Test Item Value Reference Range Interpretation Comments RBC (test code = RBC) 3.72 4.20-5.40 [facility]WestXhbchraIGZOMYHDKX6765-71-43 06:44:00 Test Item Value Reference Range Interpretation Comments Hgb (test code = Hgb) 8.1 12.0-16.0 [facility] CenterHszyuepLTOVOQLTHG6718-51-14 06:44:00 Test Item Value Reference Range Interpretation Comments PTT (test code = PTT) 27.2 s 22.9-35.8 [facility]WestCtrcqhmQAVBLMKUUX8702-48-42 06:44:00 Test Item Value Reference Range Interpretation Comments PT (test code = PT) 14.7 s 12.0-14.7 [facility] CenterBundxatGNZGMHBCBU0552-91-15 06:44:00 Test Item Value Reference Range Interpretation Comments INR (test code = INR) 1.12 0.85-1.17 [id number] 06:44:00 Test Item Value Reference Range Interpretation Comments Antibody Scrn (test Negative (02/13/16 1:44 code = Antibody Scrn) AM) [employer] [id number] 06:44:00 Test Item Value Reference Range Interpretation Comments ABO/Rh (test code = ABO/Rh) A POS [employer]2016-07-03 06:44:00 Test Item Value Reference Range Interpretation Comments CK MB Index (test 1.6 See_Comment [Automate d message] The code = CK MB Index) system [facility] generated this result transmit gaye reference range : <=2.5. The reference range was not used to interpr et this result as satish l/abnormal. [employer]2016-07-03 06:44:00 Test Item Value Reference Range Interpretation Comments CK MB (test code = CK MB) 0.9 0.5-3.6 [employer]2016-07-03 06:44:00 Test Item Value Reference Range Interpretation Comments Total CK (test code = Total CK) 57 12-191 [facility] [employer]2016-07-03 06:44:00 Test Item Value Reference Range Interpretation Comments Troponin-I (test code no gt See_Comment [Auto mated message] The = Troponin-I) system which g enerated this result transmit gaye reference range : <=0.40. The reference r ozzy was not used to interpr et this result as satish l/abnormal. [employer]2016-07-03 06:44:00 Test Item Value Reference Range Interpretation Comments Albumin Lvl (test code = Albumin Lvl) 3.5 3.5-5.0 [employer]2016-07-03 06:44:00 Test Item Value Reference Range Interpretation Comments Total Protein (test code = Total 7.0 6.4-8.4 Protein) [employer]2016-07-03 06:44:00 Test Item Value Reference Range Interpretation Comments ALT (test code = ALT) 19 See_Comment [Auto mated message] The system which ge nerated this result transmit gaye reference range : <=65. The reference range was not used to interpr et this result as satish l/abnormal. [employer]2016-07-03 06:44:00 Test Item Value Reference Range Interpretation Comments AST (test code = AST) 10 See_Comment [Auto mated message] The system which ge nerated this result transmit gaye reference range : <=37. The reference range was not used to interpr et this result as satish l/abnormal. [place] 726156-07-03 06:44:00 Test Item Value Reference Range Interpretation Comments Alk Phos (test code = Alk Phos) 79 39-136 [place] 726156-07-03 06:44:00 Test Item Value Reference Range Interpretation Comments Bili Total (test code = Bili Total) 0.4 0.2-1.3 [place] 726156-07-03 06:44:00 Test Item Value Reference Range Interpretation Comments Bili Direct (test code 0.1 See_Comment [Aut omated message] The = Bili Direct) system which generated this result tra nsmitted reference range : <=0.3. The reference r ozzy was not used to int erpret this result as satish l/abnormal. [facility]2016-07-03 06:44:00 Test Item Value Reference Range Interpretation Comments Globulin (test code = Globulin) 3.5 2.0-4.0 [place] 726156-07-03 06:44:00 Test Item Value Reference Range Interpretation Comments A/G Ratio (test code = A/G Ratio) 1.0 0.7-1.6 [place] 726156-07-03 06:44:00 Test Item Value Reference Range Interpretation Comments Bili Indirect (test 0.3 See_Comment [Automa gaye message] The code = Bili Indirect) system which generated this result tra nsmitted reference range : <=1.0. The reference r ozzy was not used to int erpret this result as normal/abnormal . [facility]2016-07-03 06:44:00 Test Item Value Reference Range Interpretation Comments eGFR (test code = eGFR) 107 [place] 726156-07-03 06:44:00 Test Item Value Reference Range Interpretation Comments BUN (test code = BUN) 8 7-22 [place] 726156-07-03 06:44:00 Test Item Value Reference Range Interpretation Comments Glucose Lvl (test code = Glucose Lvl) 91 70-99 [facility]2016-07-03 06:44:00 Test Item Value Reference Range Interpretation Comments Sodium Lvl (test code = Sodium Lvl) 138 135-145 [facility]2016-07-03 06:44:00 Test Item Value Reference Range Interpretation Comments Creatinine Lvl (test code = Creatinine 0.70 0.50-1.40 Lvl) [facility]2016-07-03 06:44:00 Test Item Value Reference Range Interpretation Comments Potassium Lvl (test code = Potassium 3.3 3.5-5.1 Lvl) [facility]2016-07-03 06:44:00 Test Item Value Reference Range Interpretation Comments CO2 (test code = CO2) 25 24-32 [facility]2016-07-03 06:44:00 Test Item Value Reference Range Interpretation Comments Chloride Lvl (test code = Chloride Lvl) 106 95-109 [facility]2016-07-03 06:44:00 Test Item Value Reference Range Interpretation Comments Calcium Lvl (test code = Calcium Lvl) 8.1 8.5-10.5 [facility]2016-07-03 06:44:00 Test Item Value Reference Range Interpretation Comments AGAP (test code = AGAP) 10.3 10.0-20.0 [facility]2016-07-03 06:44:00 Test Item Value Reference Range Interpretation Comments Magnesium Lvl (test code = Magnesium 2.2 1.8-2.4 Lvl) [facility]dlmJOZYQWTUULNAQ3263-63-26 06:44:00 Test Item Value Reference Range Interpretation Comments S Preg (test code = S Negative *NA*(02/13/16 Preg) 1:44 AM) [facility] CenterFavmplhSUCVJHJNWA9642-61-61 06:44:00 Test Item Value Reference Range Interpretation Comments Basophils (test code = 0.1 See_Comment [Aut omated message] The Basophils) system which ge nerated this result tra nsmitted reference range : <=1.0. The reference r ozzy was not used to int erpret this result as normal/abnormal . [facility] CenterMhvurkjPNCDBZFECK2445-13-69 06:44:00 Test Item Value Reference Range Interpretation Comments Monocytes # (test code 0.3 See_Comment [Aut omated message] The = Monocytes #) system which generated this result tra nsmitted reference range : <=0.8. The reference r ozzy was not used to int erpret this result as normal/abnormal . [facility] CenterRcyceajJWXSIXRAKG2304-75-76 06:44:00 Test Item Value Reference Range Interpretation Comments Eosinophils # (test code 0.1 See_Comment [A utomated message] The = Eosinophils #) system whic h generated this result tra nsmitted reference range : <=0.5. The reference r ozzy was not used to int erpret this result as normal/abnormal . [facility] CenterXfxcjcfOGVNKVSEAM8310-60-97 06:44:00 Test Item Value Reference Range Interpretation Comments Segs-Bands # (test code = Segs-Bands #) 9.3 1.5-8.1 [facility] CenterMxaxegmFEEEXBRMYA5069-07-25 06:44:00 Test Item Value Reference Range Interpretation Comments Lymphocytes # (test code = Lymphocytes 2.6 1.0-5.5 #) [facility] CenterHjojhryYXGRXMVRSL7204-53-42 06:44:00 Test Item Value Reference Range Interpretation Comments Basophils # (test code 0.0 See_Comment [Aut omated message] The = Basophils #) system which generated this result tra nsmitted reference range : <=0.2. The reference r ozzy was not used to int erpret this result as normal/abnormal . [facility] CenterUxwkgraOPUZFZWHJB2863-02-88 06:44:00 Test Item Value Reference Range Interpretation Comments Microcyte (test code = 1+ *ABN*(02/13/16 1:44 Microcyte) AM) [facility] CenterRoklehhMGDFKFDFLU1791-10-99 06:44:00 Test Item Value Reference Range Interpretation Comments Giant Plt (test code Moderate *ABN*(02/13/16 = Giant Plt) 1:44 AM) [facility] CenterTcrqetrHTCEDTEGPD0756-82-39 06:44:00 Test Item Value Reference Range Interpretation Comments Segs (test code = Segs) 75.2 45.0-75.0 [facility] CenterQibelzoSZOTCJPZIQ7149-91-25 06:44:00 Test Item Value Reference Range Interpretation Comments Hypochrom (test code = 1+ (02/13/16 1:44 AM) Hypochrom) [facility] CenterVhvalswGSDNSKYKRE0395-19-79 06:44:00 Test Item Value Reference Range Interpretation Comments Eosinophils (test code = 0.7 See_Comment [A utomated message] The Eosinophils) system which ge nerated this result tra nsmitted reference range : <=4.0. The reference r ozzy was not used to int erpret this result as normal/abnormal . [facility] CenterPyiytvqYIPPFZZCZT3801-49-86 06:44:00 Test Item Value Reference Range Interpretation Comments Lymphocytes (test code = Lymphocytes) 21.3 20.0-40.0 [facility] CenterHtmsrluSWEAZGCGYD0238-48-12 06:44:00 Test Item Value Reference Range Interpretation Comments Monocytes (test code = Monocytes) 2.7 2.0-12.0 [facility] CenterBjgsasvKJPACQOBKU1163-68-89 06:44:00 Test Item Value Reference Range Interpretation Comments MPV (test code = MPV) 9.5 7.4-10.4 [facility] CenterWffpxzhRAGUOZAIRP0080-44-07 06:44:00 Test Item Value Reference Range Interpretation Comments RDW (test code = RDW) 17.8 11.5-14.5 [facility] CenterHglcuvaWYXHBRQOFU2304-85-52 06:44:00 Test Item Value Reference Range Interpretation Comments MCV (test code = MCV) 73.2 80.0-98.0 [facility] CenterYstxpkwPSYZEYJEDJ4525-02-03 06:44:00 Test Item Value Reference Range Interpretation Comments MCH (test code = MCH) 21.9 pg 27.0-31.0 [facility] CenterLegrnabSRWGOCSYHG9375-09-89 06:44:00 Test Item Value Reference Range Interpretation Comments Hct (test code = Hct) 27.2 36.0-48.0 [facility] CenterOpyejwgNIPSJFMEFH8547-05-98 06:44:00 Test Item Value Reference Range Interpretation Comments MCHC (test code = MCHC) 29.9 32.0-36.0 [facility] CenterRvowvtiLDHIMSZPKR0210-33-33 06:44:00 Test Item Value Reference Range Interpretation Comments Platelet (test code = Platelet) 400 133-450 [facility] CenterAizmqazKORSTNWCCZ4851-20-61 06:44:00 Test Item Value Reference Range Interpretation Comments WBC (test code = WBC) 12.4 3.7-10.4 [facility]aurvkgCYOIKRFPUS3759-42-19 06:44:00 Test Item Value Reference Range Interpretation Comments RBC (test code = RBC) 3.72 4.20-5.40 [facility] PsvoxgyMZNMPJQSFJ0488-14-07 06:44:00 Test Item Value Reference Range Interpretation Comments Hgb (test code = Hgb) 8.1 12.0-16.0 [facility]ObkapfwUBBYIGSRHI1853-24-60 06:44:00 Test Item Value Reference Range Interpretation Comments PTT (test code = PTT) 27.2 s 22.9-35.8 [facility] ZrbqsxgZKANLWXDVH5337-73-48 06:44:00 Test Item Value Reference Range Interpretation Comments PT (test code = PT) 14.7 s 12.0-14.7 [facility] GyxocpgKILBUELTZO5717-08-38 06:44:00 Test Item Value Reference Range Interpretation Comments INR (test code = INR) 1.12 0.85-1.17 [facility] [employer] [id number] 06:44:00 Test Item Value Reference Range Interpretation Comments Antibody Scrn (test Negative (02/13/16 1:44 code = Antibody Scrn) AM) [facility] [employer] [id number] 06:44:00 Test Item Value Reference Range Interpretation Comments ABO/Rh (test code = ABO/Rh) A POS [facility] [employer]2016-07-03 06:44:00 Test Item Value Reference Range Interpretation Comments CK MB Index (test 1.6 See_Comment [Automate d message] The code = CK MB Index) [facility] generated this result transmit gaye reference range : <=2.5. The reference range was not used to interpr et this result as satish l/abnormal. [employer]2016-07-03 06:44:00 Test Item Value Reference Range Interpretation Comments CK MB (test code = CK MB) 0.9 0.5-3.6 [facility] [employer]2016-07-03 06:44:00 Test Item Value Reference Range Interpretation Comments Total CK (test code = Total CK) 57 12-191 [facility] [employer]2016-07-03 06:44:00 Test Item Value Reference Range Interpretation Comments Troponin-I (test code no gt See_Comment [Auto mated message] The = Troponin-I) system which g enerated this result transmit gaye reference range : <=0.40. The reference r ozzy was not used to interpr et this result as satish l/abnormal. [facility]2016-07-03 06:44:00 Test Item Value Reference Range Interpretation Comments Albumin Lvl (test code = Albumin Lvl) 3.5 3.5-5.0 [facility]2016-07-03 06:44:00 Test Item Value Reference Range Interpretation Comments Total Protein (test code = Total 7.0 6.4-8.4 Protein) [facility]2016-07-03 06:44:00 Test Item Value Reference Range Interpretation Comments ALT (test code = ALT) 19 See_Comment [Auto mated message] The system which ge nerated this result transmit gaye reference range : <=65. The reference range was not used to interpr et this result as satish l/abnormal. [facility]2016-07-03 06:44:00 Test Item Value Reference Range Interpretation Comments AST (test code = AST) 10 See_Comment [Auto mated message] The system which ge nerated this result transmit gaye reference range : <=37. The reference range was not used to interpr et this result as satish l/abnormal. [facility]2016-07-03 06:44:00 Test Item Value Reference Range Interpretation Comments Alk Phos (test code = Alk Phos) 79 39-136 [facility]2016-07-03 06:44:00 Test Item Value Reference Range Interpretation Comments Bili Total (test code = Bili Total) 0.4 0.2-1.3 [place] [id number] 06:44:00 Test Item Value Reference Range Interpretation Comments Bili Direct (test code 0.1 See_Comment [Aut omated message] The = Bili Direct) system which generated this result tra nsmitted reference range : <=0.3. The reference r ozzy was not used to int erpret this result as satish l/abnormal. [facility] [id number] 06:44:00 Test Item Value Reference Range Interpretation Comments Globulin (test code = Globulin) 3.5 2.0-4.0 [facility]2016-07-03 06:44:00 Test Item Value Reference Range Interpretation Comments A/G Ratio (test code = A/G Ratio) 1.0 0.7-1.6 [facility]2016-07-03 06:44:00 Test Item Value Reference Range Interpretation Comments Bili Indirect (test 0.3 See_Comment [Automa gaye message] The code = Bili Indirect) system which generated this result tra nsmitted reference range : <=1.0. The reference r ozzy was not used to int erpret this result as normal/abnormal . [facility]2016-07-03 06:44:00 Test Item Value Reference Range Interpretation Comments eGFR (test code = eGFR) 107 [facility]2016-07-03 06:44:00 Test Item Value Reference Range Interpretation Comments BUN (test code = BUN) 8 7-22 [facility]2016-07-03 06:44:00 Test Item Value Reference Range Interpretation Comments Glucose Lvl (test code = Glucose Lvl) 91 70-99 [facility]2016-07-03 06:44:00 Test Item Value Reference Range Interpretation Comments Sodium Lvl (test code = Sodium Lvl) 138 135-145 [facility]2016-07-03 06:44:00 Test Item Value Reference Range Interpretation Comments Creatinine Lvl (test code = Creatinine 0.70 0.50-1.40 Lvl) [facility]2016-07-03 06:44:00 Test Item Value Reference Range Interpretation Comments Potassium Lvl (test code = Potassium 3.3 3.5-5.1 Lvl) [facility]2016-07-03 06:44:00 Test Item Value Reference Range Interpretation Comments CO2 (test code = CO2) 25 24-32 [facility]2016-07-03 06:44:00 Test Item Value Reference Range Interpretation Comments Chloride Lvl (test code = Chloride Lvl) 106 95-109 [facility]2016-07-03 06:44:00 Test Item Value Reference Range Interpretation Comments Calcium Lvl (test code = Calcium Lvl) 8.1 8.5-10.5 [facility]2016-07-03 06:44:00 Test Item Value Reference Range Interpretation Comments AGAP (test code = AGAP) 10.3 10.0-20.0 [facility]2016-07-03 06:44:00 Test Item Value Reference Range Interpretation Comments Magnesium Lvl (test code = Magnesium 2.2 1.8-2.4 Lvl) [place] [id number] 06:44:00 Test Item Value Reference Range Interpretation Comments S Preg (test code = S Negative *NA*(02/13/16 Preg) 1:44 AM) [facility]GstfjlrHGFGDHFVAR8728-39-45 06:44:00 Test Item Value Reference Range Interpretation Comments Basophils (test code = 0.1 See_Comment [Aut omated message] The Basophils) system which ge nerated this result tra nsmitted reference range : <=1.0. The reference r ozzy was not used to int erpret this result as normal/abnormal . [facility] CenterFqjpdttYKCDHTCJZH8920-30-39 06:44:00 Test Item Value Reference Range Interpretation Comments Monocytes # (test code 0.3 See_Comment [Aut omated message] The = Monocytes #) system which generated this result tra nsmitted reference range : <=0.8. The reference r ozzy was not used to int erpret this result as normal/abnormal . [facility] CenterEfrnaueGOJKJDXLTT6243-78-77 06:44:00 Test Item Value Reference Range Interpretation Comments Eosinophils # (test code 0.1 See_Comment [A utomated message] The = Eosinophils #) system whic h generated this result tra nsmitted reference range : <=0.5. The reference r ozzy was not used to int erpret this result as normal/abnormal . [facility] CenterLbwmaulALTTCYDZFD3004-65-53 06:44:00 Test Item Value Reference Range Interpretation Comments Segs-Bands # (test code = Segs-Bands #) 9.3 1.5-8.1 [facility] CenterNdcyohqIYCZVAQUPA6294-90-97 06:44:00 Test Item Value Reference Range Interpretation Comments Lymphocytes # (test code = Lymphocytes 2.6 1.0-5.5 #) [facility] CenterRtpdqjeJTJQNQLBHS5092-80-57 06:44:00 Test Item Value Reference Range Interpretation Comments Basophils # (test code 0.0 See_Comment [Aut omated message] The = Basophils #) system which generated this result tra nsmitted reference range : <=0.2. The reference r ozzy was not used to int erpret this result as normal/abnormal . [facility] CenterAfyjlhgTTIZEWUBSV4644-14-68 06:44:00 Test Item Value Reference Range Interpretation Comments Microcyte (test code = 1+ *ABN*(02/13/16 1:44 Microcyte) AM) [facility] CenterBzwjoviBQHMRWARHC3942-77-11 06:44:00 Test Item Value Reference Range Interpretation Comments Giant Plt (test code Moderate *ABN*(02/13/16 = Giant Plt) 1:44 AM) [facility] CenterTnifcsfDXSCLNIROQ8998-34-45 06:44:00 Test Item Value Reference Range Interpretation Comments Segs (test code = Segs) 75.2 45.0-75.0 [facility] CenterXpvnbiaNAQVCVBSEG5659-34-17 06:44:00 Test Item Value Reference Range Interpretation Comments Hypochrom (test code = 1+ (02/13/16 1:44 AM) Hypochrom) [facility] CenterWblrbnnVUPCIXQZNF5786-39-21 06:44:00 Test Item Value Reference Range Interpretation Comments Eosinophils (test code = 0.7 See_Comment [A utomated message] The Eosinophils) system which ge nerated this result tra nsmitted reference range : <=4.0. The reference r ozzy was not used to int erpret this result as normal/abnormal . [facility] CenterUgoeshbSCAJJEINER5757-11-21 06:44:00 Test Item Value Reference Range Interpretation Comments Lymphocytes (test code = Lymphocytes) 21.3 20.0-40.0 [facility] CenterHfwynjlGHMTGXCCJO1038-31-78 06:44:00 Test Item Value Reference Range Interpretation Comments Monocytes (test code = Monocytes) 2.7 2.0-12.0 [facility] CenterYejkcliOGNXBPHHWN3663-23-73 06:44:00 Test Item Value Reference Range Interpretation Comments MPV (test code = MPV) 9.5 7.4-10.4 [facility] CenterVlysvpwGOXZJDBBWM6142-91-30 06:44:00 Test Item Value Reference Range Interpretation Comments RDW (test code = RDW) 17.8 11.5-14.5 [facility] CenterJazgzmdJKVSZZAOXU7471-93-21 06:44:00 Test Item Value Reference Range Interpretation Comments MCV (test code = MCV) 73.2 80.0-98.0 [facility] CenterXffgupsNDTVAMPPTN5806-11-94 06:44:00 Test Item Value Reference Range Interpretation Comments MCH (test code = MCH) 21.9 pg 27.0-31.0 [facility] CenterCiodfclQGJGASNDKC9728-59-80 06:44:00 Test Item Value Reference Range Interpretation Comments Hct (test code = Hct) 27.2 36.0-48.0 [facility]RleopzzDCUEMZWEXM1088-19-11 06:44:00 Test Item Value Reference Range Interpretation Comments MCHC (test code = MCHC) 29.9 32.0-36.0 [facility]cjtmoiPFESUYVXAZ5527-23-44 06:44:00 Test Item Value Reference Range Interpretation Comments Platelet (test code = Platelet) 400 133-450 [facility]WestGuyvdjxMDKYYYXZZV0654-28-25 06:44:00 Test Item Value Reference Range Interpretation Comments WBC (test code = WBC) 12.4 3.7-10.4 [facility] CenterBdyhvlhODOKFZXAKJ8260-84-69 06:44:00 Test Item Value Reference Range Interpretation Comments RBC (test code = RBC) 3.72 4.20-5.40 [facility]WestEvuxmsoYTPCZWXJBN4151-34-72 06:44:00 Test Item Value Reference Range Interpretation Comments Hgb (test code = Hgb) 8.1 12.0-16.0 [facility]WestWwaymqvMQGUVRPZWX3684-32-99 06:44:00 Test Item Value Reference Range Interpretation Comments PTT (test code = PTT) 27.2 s 22.9-35.8 [facility] HospitalHvdddgrWGQWEDNFGF4260-57-52 06:44:00 Test Item Value Reference Range Interpretation Comments PT (test code = PT) 14.7 s 12.0-14.7 [facility]WestRvagukvKCFLRRDBDO9273-33-17 06:44:00 Test Item Value Reference Range Interpretation Comments INR (test code = INR) 1.12 0.85-1.17 [facility] [employer] [id number] 06:44:00 Test Item Value Reference Range Interpretation Comments Antibody Scrn (test Negative (02/13/16 1:44 code = Antibody Scrn) AM) [facility] [employer] [id number] 06:44:00 Test Item Value Reference Range Interpretation Comments ABO/Rh (test code = ABO/Rh) A POS [facility] GreetzannCARDIAC [id number] 06:44:00 Test Item Value Reference Range Interpretation Comments CK MB Index (test 1.6 See_Comment [Automate d message] The code = CK MB Index) [facility] generated this result transmit gaye reference range : <=2.5. The reference range was not used to interpr et this result as satish l/abnormal. [facility] CenterChina Communications Services Corporation DGNEKTC7276-27-18 06:44:00 Test Item Value Reference Range Interpretation Comments CK MB (test code = CK MB) 0.9 0.5-3.6 [facility] HospitalBragThis.[facility] CZKJOLU6807-20-37 06:44:00 Test Item Value Reference Range Interpretation Comments Total CK (test code = Total CK) 57 12-191 [facility] HospitalBragThis.[facility] ZZNDDGJ7424-65-62 06:44:00 Test Item Value Reference Range Interpretation Comments Troponin-I (test code no gt See_Comment [Auto mated message] The = Troponin-I) system which g enerated this result transmit gaye reference range : <=0.40. The reference r ozzy was not used to interpr et this result as satish l/abnormal. [facility] [employer] [id number] 06:44:00 Test Item Value Reference Range Interpretation Comments Albumin Lvl (test code = Albumin Lvl) 3.5 3.5-5.0 [facility] [employer] [id number] 06:44:00 Test Item Value Reference Range Interpretation Comments Total Protein (test code = Total 7.0 6.4-8.4 Protein) [facility] [employer] [id number] 06:44:00 Test Item Value Reference Range Interpretation Comments ALT (test code = ALT) 19 See_Comment [Auto mated message] The system which ge nerated this result transmit gaye reference range : <=65. The reference range was not used to interpr et this result as satish l/abnormal. [facility] [employer] [id number] 06:44:00 Test Item Value Reference Range Interpretation Comments AST (test code = AST) 10 See_Comment [Auto mated message] The system which ge nerated this result transmit gaye reference range : <=37. The reference range was not used to interpr et this result as satish l/abnormal. [facility] [employer] [id number] 06:44:00 Test Item Value Reference Range Interpretation Comments Alk Phos (test code = Alk Phos) 79 39-136 [facility] [employer] [id number] 06:44:00 Test Item Value Reference Range Interpretation Comments Bili Total (test code = Bili Total) 0.4 0.2-1.3 [facility]2016-07-03 06:44:00 Test Item Value Reference Range Interpretation Comments Bili Direct (test code 0.1 See_Comment [Aut omated message] The = Bili Direct) system which generated this result tra nsmitted reference range : <=0.3. The reference r ozzy was not used to int erpret this result as satish l/abnormal. [facility]2016-07-03 06:44:00 Test Item Value Reference Range Interpretation Comments Globulin (test code = Globulin) 3.5 2.0-4.0 [facility]2016-07-03 06:44:00 Test Item Value Reference Range Interpretation Comments A/G Ratio (test code = A/G Ratio) 1.0 0.7-1.6 [place] [id number] 06:44:00 Test Item Value Reference Range Interpretation Comments Bili Indirect (test 0.3 See_Comment [Automa gaye message] The code = Bili Indirect) system which generated this result tra nsmitted reference range : <=1.0. The reference r ozzy was not used to int erpret this result as normal/abnormal . [facility]2016-07-03 06:44:00 Test Item Value Reference Range Interpretation Comments eGFR (test code = eGFR) 107 [facility]2016-07-03 06:44:00 Test Item Value Reference Range Interpretation Comments BUN (test code = BUN) 8 7-22 [facility]2016-07-03 06:44:00 Test Item Value Reference Range Interpretation Comments Glucose Lvl (test code = Glucose Lvl) 91 70-99 [facility]2016-07-03 06:44:00 Test Item Value Reference Range Interpretation Comments Sodium Lvl (test code = Sodium Lvl) 138 135-145 [facility]2016-07-03 06:44:00 Test Item Value Reference Range Interpretation Comments Creatinine Lvl (test code = Creatinine 0.70 0.50-1.40 Lvl) [facility]2016-07-03 06:44:00 Test Item Value Reference Range Interpretation Comments Potassium Lvl (test code = Potassium 3.3 3.5-5.1 Lvl) [facility]2016-07-03 06:44:00 Test Item Value Reference Range Interpretation Comments CO2 (test code = CO2) 25 24-32 [facility]2016-07-03 06:44:00 Test Item Value Reference Range Interpretation Comments Chloride Lvl (test code = Chloride Lvl) 106 95-109 [facility]2016-07-03 06:44:00 Test Item Value Reference Range Interpretation Comments Calcium Lvl (test code = Calcium Lvl) 8.1 8.5-10.5 [facility]2016-07-03 06:44:00 Test Item Value Reference Range Interpretation Comments AGAP (test code = AGAP) 10.3 10.0-20.0 [facility]2016-07-03 06:44:00 Test Item Value Reference Range Interpretation Comments Magnesium Lvl (test code = Magnesium 2.2 1.8-2.4 Lvl) [facility]EyangidFRIVBTOTQZFLS2512-42-23 06:44:00 Test Item Value Reference Range Interpretation Comments S Preg (test code = S Negative *NA*(02/13/16 Preg) 1:44 AM) [facility] CenterXamknkeYBCHXWZITS9722-08-93 06:44:00 Test Item Value Reference Range Interpretation Comments Basophils (test code = 0.1 See_Comment [Aut omated message] The Basophils) system which ge nerated this result tra nsmitted reference range : <=1.0. The reference r ozzy was not used to int erpret this result as normal/abnormal . [facility] CenterZjqofvuSZEIQRAMBO8672-79-64 06:44:00 Test Item Value Reference Range Interpretation Comments Monocytes # (test code 0.3 See_Comment [Aut omated message] The = Monocytes #) system which generated this result tra nsmitted reference range : <=0.8. The reference r ozzy was not used to int erpret this result as normal/abnormal . [facility] CenterApczutuTEXFXEKTSU7845-55-60 06:44:00 Test Item Value Reference Range Interpretation Comments Eosinophils # (test code 0.1 See_Comment [A utomated message] The = Eosinophils #) system whic h generated this result tra nsmitted reference range : <=0.5. The reference r ozzy was not used to int erpret this result as normal/abnormal . [facility] CenterVlkyzrjYDUMOHSISO4683-35-77 06:44:00 Test Item Value Reference Range Interpretation Comments Segs-Bands # (test code = Segs-Bands #) 9.3 1.5-8.1 [facility] CenterTfgbmrbNYSGBEEUQF0306-81-87 06:44:00 Test Item Value Reference Range Interpretation Comments Lymphocytes # (test code = Lymphocytes 2.6 1.0-5.5 #) [facility] CenterWdulvvvEYYMWRSKOC3006-47-69 06:44:00 Test Item Value Reference Range Interpretation Comments Basophils # (test code 0.0 See_Comment [Aut omated message] The = Basophils #) system which generated this result tra nsmitted reference range : <=0.2. The reference r ozzy was not used to int erpret this result as normal/abnormal . [facility] CenterYgahkjbOISYMBYDXQ1553-55-22 06:44:00 Test Item Value Reference Range Interpretation Comments Microcyte (test code = 1+ *ABN*(02/13/16 1:44 Microcyte) AM) [facility] CenterSvbpjbrDPHDJDOOHV6546-52-75 06:44:00 Test Item Value Reference Range Interpretation Comments Giant Plt (test code Moderate *ABN*(02/13/16 = Giant Plt) 1:44 AM) [facility] CenterNzhnlotEOBDXUFKNK9362-09-73 06:44:00 Test Item Value Reference Range Interpretation Comments Segs (test code = Segs) 75.2 45.0-75.0 [facility] CenterPdtezrqVJFNCSTWDB4660-46-70 06:44:00 Test Item Value Reference Range Interpretation Comments Hypochrom (test code = 1+ (02/13/16 1:44 AM) Hypochrom) [facility] CenterWkbuihyDXXKDOUJXL6290-50-86 06:44:00 Test Item Value Reference Range Interpretation Comments Eosinophils (test code = 0.7 See_Comment [A utomated message] The Eosinophils) system which ge nerated this result tra nsmitted reference range : <=4.0. The reference r ozzy was not used to int erpret this result as normal/abnormal . [facility] CenterEvvolrhULBYUXRFSZ9141-41-67 06:44:00 Test Item Value Reference Range Interpretation Comments Lymphocytes (test code = Lymphocytes) 21.3 20.0-40.0 [facility] CenterMlzgsihBUASQFVBBM9910-74-87 06:44:00 Test Item Value Reference Range Interpretation Comments Monocytes (test code = Monocytes) 2.7 2.0-12.0 [facility] CenterZqjbecgMTKZPFMVNX6244-49-32 06:44:00 Test Item Value Reference Range Interpretation Comments MPV (test code = MPV) 9.5 7.4-10.4 [facility] CenterNdnthwtTUHEZRIHBJ3909-75-09 06:44:00 Test Item Value Reference Range Interpretation Comments RDW (test code = RDW) 17.8 11.5-14.5 [facility] CenterRpvvwclPPDSARZUTC0182-13-39 06:44:00 Test Item Value Reference Range Interpretation Comments MCV (test code = MCV) 73.2 80.0-98.0 [facility] CenterVstemtoLRNGUNSAJI7686-10-86 06:44:00 Test Item Value Reference Range Interpretation Comments MCH (test code = MCH) 21.9 pg 27.0-31.0 [facility] CenterIyzlyltRLYHMHPMLQ5950-31-19 06:44:00 Test Item Value Reference Range Interpretation Comments Hct (test code = Hct) 27.2 36.0-48.0 [facility] CenterDvqeqpvIMDTJPOMOB5021-71-35 06:44:00 Test Item Value Reference Range Interpretation Comments MCHC (test code = MCHC) 29.9 32.0-36.0 [facility] CenterTwsapybNYGNIRPVXO1777-36-21 06:44:00 Test Item Value Reference Range Interpretation Comments Platelet (test code = Platelet) 400 133-450 [facility] CenterBddnzayKFSJHUUJEJ1716-47-85 06:44:00 Test Item Value Reference Range Interpretation Comments WBC (test code = WBC) 12.4 3.7-10.4 [facility] CenterPsfxtyaSBFRLNJYTP5790-93-23 06:44:00 Test Item Value Reference Range Interpretation Comments RBC (test code = RBC) 3.72 4.20-5.40 [facility] CenterPpelxqnBAMFBQLKFC2150-21-41 06:44:00 Test Item Value Reference Range Interpretation Comments Hgb (test code = Hgb) 8.1 12.0-16.0 [facility] CenterZcthivjAWDXELYMAR7267-77-25 06:44:00 Test Item Value Reference Range Interpretation Comments PTT (test code = PTT) 27.2 s 22.9-35.8 [facility] CenterWwomxfsZSVGQGTCRM6040-29-50 06:44:00 Test Item Value Reference Range Interpretation Comments PT (test code = PT) 14.7 s 12.0-14.7 [facility] CenterUvggienRTHOUQHNYT5418-27-75 06:44:00 Test Item Value Reference Range Interpretation Comments INR (test code = INR) 1.12 0.85-1.17 [facility] [employer] [id number] 06:44:00 Test Item Value Reference Range Interpretation Comments Antibody Scrn (test Negative (02/13/16 1:44 code = Antibody Scrn) AM) [facility] [employer] IAQKFJT8979-28-22 06:44:00 Test Item Value Reference Range Interpretation Comments ABO/Rh (test code = ABO/Rh) A POS [facility] [employer] [id number] 06:44:00 Test Item Value Reference Range Interpretation Comments CK MB Index (test 1.6 See_Comment [Automate d message] The code = CK MB Index) [facility] generated this result transmit gaye reference range : <=2.5. The reference range was not used to interpr et this result as satish l/abnormal. [facility] [employer]2016-07-03 06:44:00 Test Item Value Reference Range Interpretation Comments CK MB (test code = CK MB) 0.9 0.5-3.6 [facility] [employer]2016-07-03 06:44:00 Test Item Value Reference Range Interpretation Comments Total CK (test code = Total CK) 57 12-191 [facility] [employer]2016-07-03 06:44:00 Test Item Value Reference Range Interpretation Comments Troponin-I (test code no gt See_Comment [Auto mated message] The = Troponin-I) system which g enerated this result transmit gaye reference range : <=0.40. The reference r ozzy was not used to interpr et this result as satish l/abnormal. [employer] [id number] 06:44:00 Test Item Value Reference Range Interpretation Comments Albumin Lvl (test code = Albumin Lvl) 3.5 3.5-5.0 [employer] [id number] 06:44:00 Test Item Value Reference Range Interpretation Comments Total Protein (test code = Total 7.0 6.4-8.4 Protein) [employer] [id number] 06:44:00 Test Item Value Reference Range Interpretation Comments ALT (test code = ALT) 19 See_Comment [Auto mated message] The system which ge nerated this result transmit gaye reference range : <=65. The reference range was not used to interpr et this result as satish l/abnormal. [facility] [id number] 06:44:00 Test Item Value Reference Range Interpretation Comments AST (test code = AST) 10 See_Comment [Auto mated message] The system which ge nerated this result transmit gaye reference range : <=37. The reference range was not used to interpr et this result as satish l/abnormal. [facility] [id number] 06:44:00 Test Item Value Reference Range Interpretation Comments Alk Phos (test code = Alk Phos) 79 39-136 [facility] [id number] 06:44:00 Test Item Value Reference Range Interpretation Comments Bili Total (test code = Bili Total) 0.4 0.2-1.3 [facility] [id number] 06:44:00 Test Item Value Reference Range Interpretation Comments Bili Direct (test code 0.1 See_Comment [Aut omated message] The = Bili Direct) system which generated this result tra nsmitted reference range : <=0.3. The reference r ozzy was not used to int erpret this result as satish l/abnormal. [facility] [id number] 06:44:00 Test Item Value Reference Range Interpretation Comments Globulin (test code = Globulin) 3.5 2.0-4.0 [facility] [id number] 06:44:00 Test Item Value Reference Range Interpretation Comments A/G Ratio (test code = A/G Ratio) 1.0 0.7-1.6 [facility] [id number] 06:44:00 Test Item Value Reference Range Interpretation Comments Bili Indirect (test 0.3 See_Comment [Automa gaye message] The code = Bili Indirect) system which generated this result tra nsmitted reference range : <=1.0. The reference r ozzy was not used to int erpret this result as normal/abnormal . [facility] [id number] 06:44:00 Test Item Value Reference Range Interpretation Comments eGFR (test code = eGFR) 107 [facility] [id number] 06:44:00 Test Item Value Reference Range Interpretation Comments BUN (test code = BUN) 8 7-22 [facility]2016-07-03 06:44:00 Test Item Value Reference Range Interpretation Comments Glucose Lvl (test code = Glucose Lvl) 91 70-99 [facility]2016-07-03 06:44:00 Test Item Value Reference Range Interpretation Comments Sodium Lvl (test code = Sodium Lvl) 138 135-145 [facility]2016-07-03 06:44:00 Test Item Value Reference Range Interpretation Comments Creatinine Lvl (test code = Creatinine 0.70 0.50-1.40 Lvl) [facility]2016-07-03 06:44:00 Test Item Value Reference Range Interpretation Comments Potassium Lvl (test code = Potassium 3.3 3.5-5.1 Lvl) [facility]2016-07-03 06:44:00 Test Item Value Reference Range Interpretation Comments CO2 (test code = CO2) 25 24-32 [facility]2016-07-03 06:44:00 Test Item Value Reference Range Interpretation Comments Chloride Lvl (test code = Chloride Lvl) 106 95-109 [facility]2016-07-03 06:44:00 Test Item Value Reference Range Interpretation Comments Calcium Lvl (test code = Calcium Lvl) 8.1 8.5-10.5 [facility]2016-07-03 06:44:00 Test Item Value Reference Range Interpretation Comments AGAP (test code = AGAP) 10.3 10.0-20.0 [facility]2016-07-03 06:44:00 Test Item Value Reference Range Interpretation Comments Magnesium Lvl (test code = Magnesium 2.2 1.8-2.4 Lvl) [facility]ZXDWGAFKFAWZD2023-51-65 06:44:00 Test Item Value Reference Range Interpretation Comments S Preg (test code = S Negative *NA*(02/13/16 Preg) 1:44 AM) [id number] 06:44:00 Test Item Value Reference Range Interpretation Comments Basophils (test code = 0.1 See_Comment [Aut omated message] The Basophils) system which ge nerated this result tra nsmitted reference range : <=1.0. The reference r ozzy was not used to int erpret this result as normal/abnormal . [facility]JydlvfxXUYWZNMABF1816-14-19 06:44:00 Test Item Value Reference Range Interpretation Comments Monocytes # (test code 0.3 See_Comment [Aut omated message] The = Monocytes #) system which generated this result tra nsmitted reference range : <=0.8. The reference r ozzy was not used to int erpret this result as normal/abnormal . [facility] CenterXdpnuwtKDYDWCBOIU5054-58-81 06:44:00 Test Item Value Reference Range Interpretation Comments Eosinophils # (test code 0.1 See_Comment [A utomated message] The = Eosinophils #) system whic h generated this result tra nsmitted reference range : <=0.5. The reference r ozzy was not used to int erpret this result as normal/abnormal . [facility] CenterSknhcldPFCDWRXXXA8303-66-65 06:44:00 Test Item Value Reference Range Interpretation Comments Segs-Bands # (test code = Segs-Bands #) 9.3 1.5-8.1 [facility] CenterQwvgfnhSXLUTLXHVN8068-74-95 06:44:00 Test Item Value Reference Range Interpretation Comments Lymphocytes # (test code = Lymphocytes 2.6 1.0-5.5 #) [facility] CenterRwydyhkDOPPMBBNCK7480-26-89 06:44:00 Test Item Value Reference Range Interpretation Comments Basophils # (test code 0.0 See_Comment [Aut omated message] The = Basophils #) system which generated this result tra nsmitted reference range : <=0.2. The reference r ozzy was not used to int erpret this result as normal/abnormal . [facility] CenterJfontwfIBUUVVWBXA4283-18-46 06:44:00 Test Item Value Reference Range Interpretation Comments Microcyte (test code = 1+ *ABN*(02/13/16 1:44 Microcyte) AM) [facility] CenterHbkjziiALQSLYCCHZ5777-94-58 06:44:00 Test Item Value Reference Range Interpretation Comments Giant Plt (test code Moderate *ABN*(02/13/16 = Giant Plt) 1:44 AM) [facility] CenterBjcxmzaUDUCTNVQPQ3324-36-46 06:44:00 Test Item Value Reference Range Interpretation Comments Segs (test code = Segs) 75.2 45.0-75.0 [facility] CenterHogaiixZDMHIRVJXY9643-80-52 06:44:00 Test Item Value Reference Range Interpretation Comments Hypochrom (test code = 1+ (02/13/16 1:44 AM) Hypochrom) [facility] CenterZnpipmcFZTASWRHSS7956-19-02 06:44:00 Test Item Value Reference Range Interpretation Comments Eosinophils (test code = 0.7 See_Comment [A utomated message] The Eosinophils) system which ge nerated this result tra nsmitted reference range : <=4.0. The reference r ozzy was not used to int erpret this result as normal/abnormal . [facility] CenterQsgmdqjWJVGWHZPMH2898-98-39 06:44:00 Test Item Value Reference Range Interpretation Comments Lymphocytes (test code = Lymphocytes) 21.3 20.0-40.0 [facility] CenterIdwakjcHWTSWFKUCH6583-05-10 06:44:00 Test Item Value Reference Range Interpretation Comments Monocytes (test code = Monocytes) 2.7 2.0-12.0 [facility] CenterUmtxcahABVENAONLL8529-05-26 06:44:00 Test Item Value Reference Range Interpretation Comments MPV (test code = MPV) 9.5 7.4-10.4 [facility] CenterZeuxgspPELNIIWFRN7811-07-96 06:44:00 Test Item Value Reference Range Interpretation Comments RDW (test code = RDW) 17.8 11.5-14.5 [facility] CenterMcelosyMYXNJZEPXB2920-43-70 06:44:00 Test Item Value Reference Range Interpretation Comments MCV (test code = MCV) 73.2 80.0-98.0 [facility] CenterEpqljkzWSYWCHIMJS5141-99-16 06:44:00 Test Item Value Reference Range Interpretation Comments MCH (test code = MCH) 21.9 pg 27.0-31.0 [facility] CenterDhnkufwFYEYIOQMTE1653-78-17 06:44:00 Test Item Value Reference Range Interpretation Comments Hct (test code = Hct) 27.2 36.0-48.0 [facility] CenterBqrgglyFNVLPZOZUM0694-99-87 06:44:00 Test Item Value Reference Range Interpretation Comments MCHC (test code = MCHC) 29.9 32.0-36.0 [facility] CenterLmmauglCFWCCCTPSD8552-15-43 06:44:00 Test Item Value Reference Range Interpretation Comments Platelet (test code = Platelet) 400 133-450 [facility] CenterYmiaouyFNEVENQQHI4115-56-61 06:44:00 Test Item Value Reference Range Interpretation Comments WBC (test code = WBC) 12.4 3.7-10.4 [facility] CenterWrlcurdWXUXORSGLR5864-66-42 06:44:00 Test Item Value Reference Range Interpretation Comments RBC (test code = RBC) 3.72 4.20-5.40 [facility] CenterFmhdqpzTLLIBGPYRJ2292-34-36 06:44:00 Test Item Value Reference Range Interpretation Comments Hgb (test code = Hgb) 8.1 12.0-16.0 [facility] CenterGoxqilfAYADZBMPFT5136-01-26 06:44:00 Test Item Value Reference Range Interpretation Comments PTT (test code = PTT) 27.2 s 22.9-35.8 [facility] CenterWwusejlVYEHOMWPXN3956-49-40 06:44:00 Test Item Value Reference Range Interpretation Comments PT (test code = PT) 14.7 s 12.0-14.7 [facility] CenterPbmdcphGRSGNGQDBZ8530-34-39 06:44:00 Test Item Value Reference Range Interpretation Comments INR (test code = INR) 1.12 0.85-1.17 [facility] CenterArzfgjkORWNMCFLMA5682-10-31 06:44:00 Test Item Value Reference Range Interpretation Comments Eosinophils # (test code 0.1 See_Comment [A utomated message] The = Eosinophils #) system whic h generated this result tra nsmitted reference range : <=0.5. The reference r ozzy was not used to int erpret this result as normal/abnormal . [facility] CenterTdkecsjGAQWIWBZST3008-43-93 06:44:00 Test Item Value Reference Range Interpretation Comments Segs-Bands # (test code = Segs-Bands #) 9.3 1.5-8.1 [facility] CenterBkvnyqeSRROQYJEZU8240-59-48 06:44:00 Test Item Value Reference Range Interpretation Comments Lymphocytes # (test code = Lymphocytes 2.6 1.0-5.5 #) [facility] CenterAhvtpeyBVTZYTMOTB6180-11-62 06:44:00 Test Item Value Reference Range Interpretation Comments Basophils # (test code 0.0 See_Comment [Aut omated message] The = Basophils #) system which generated this result tra nsmitted reference range : <=0.2. The reference r ozzy was not used to int erpret this result as normal/abnormal . [facility] CenterPfinwjcUFVFXAXJOJ3152-07-63 06:44:00 Test Item Value Reference Range Interpretation Comments Microcyte (test code = 1+ *ABN*(02/13/16 1:44 Microcyte) AM) [facility] CenterIyiasfyYIPQMKKQUP8371-82-47 06:44:00 Test Item Value Reference Range Interpretation Comments Giant Plt (test code Moderate *ABN*(02/13/16 = Giant Plt) 1:44 AM) [facility] CenterKbbbysdEGLLVMPTUZ5973-58-17 06:44:00 Test Item Value Reference Range Interpretation Comments Segs (test code = Segs) 75.2 45.0-75.0 [facility] CenterOpqfaixQMKOAKEOBQ8812-69-66 06:44:00 Test Item Value Reference Range Interpretation Comments Hypochrom (test code = 1+ (02/13/16 1:44 AM) Hypochrom) [facility] CenterFnpbfieJGFUTHQDXT5419-40-19 06:44:00 Test Item Value Reference Range Interpretation Comments Eosinophils (test code = 0.7 See_Comment [A utomated message] The Eosinophils) system which ge nerated this result tra nsmitted reference range : <=4.0. The reference r ozzy was not used to int erpret this result as normal/abnormal . [facility] CenterJqffsnzXORFVGPUGI5721-59-28 06:44:00 Test Item Value Reference Range Interpretation Comments Lymphocytes (test code = Lymphocytes) 21.3 20.0-40.0 [facility] CenterQuwpsgeHHSXZQIHOG9309-47-25 06:44:00 Test Item Value Reference Range Interpretation Comments Monocytes (test code = Monocytes) 2.7 2.0-12.0 [facility] CenterNyqhethRZSXPLEKQR1639-59-04 06:44:00 Test Item Value Reference Range Interpretation Comments MPV (test code = MPV) 9.5 7.4-10.4 [facility] CenterSxvluxxPVCHBDEWNT5398-68-38 06:44:00 Test Item Value Reference Range Interpretation Comments RDW (test code = RDW) 17.8 11.5-14.5 [facility] CenterAmomkgnRHWXZPVZLQ3383-46-68 06:44:00 Test Item Value Reference Range Interpretation Comments MCV (test code = MCV) 73.2 80.0-98.0 [facility] CenterKqiakgsHIBZLACLZV0730-70-86 06:44:00 Test Item Value Reference Range Interpretation Comments MCH (test code = MCH) 21.9 pg 27.0-31.0 [facility] CenterPpiuwogXSTFACNQGV3792-26-62 06:44:00 Test Item Value Reference Range Interpretation Comments Hct (test code = Hct) 27.2 36.0-48.0 [facility]pqtdqkRCBUYTVBAF7541-17-08 06:44:00 Test Item Value Reference Range Interpretation Comments MCHC (test code = MCHC) 29.9 32.0-36.0 [facility]CrstffvDKMABFLFZH2864-34-06 06:44:00 Test Item Value Reference Range Interpretation Comments Platelet (test code = Platelet) 400 133-450 [facility]IMFNYBAND9936-22-08 06:44:00 Test Item Value Reference Range Interpretation Comments WBC (test code = WBC) 12.4 3.7-10.4 [facility] HospitalFtwduyrBLWAMGTXWO7800-64-50 06:44:00 Test Item Value Reference Range Interpretation Comments RBC (test code = RBC) 3.72 4.20-5.40 [facility]OjuwrxiSHMQHZFCVL6544-26-77 06:44:00 Test Item Value Reference Range Interpretation Comments Hgb (test code = Hgb) 8.1 12.0-16.0 [facility] HospitalPldubdkGBXNZZPWGP9362-21-99 06:44:00 Test Item Value Reference Range Interpretation Comments PTT (test code = PTT) 27.2 s 22.9-35.8 [facility] HospitalMibqzfkMVYVPHZSCL3181-75-86 06:44:00 Test Item Value Reference Range Interpretation Comments PT (test code = PT) 14.7 s 12.0-14.7 [facility]WestOndzyczPPRWDHEOKM9044-30-01 06:44:00 Test Item Value Reference Range Interpretation Comments INR (test code = INR) 1.12 0.85-1.17 [facility] [employer] [id number] 06:44:00 Test Item Value Reference Range Interpretation Comments Antibody Scrn (test Negative (02/13/16 1:44 code = Antibody Scrn) AM) [facility] [employer] [id number] 06:44:00 Test Item Value Reference Range Interpretation Comments ABO/Rh (test code = ABO/Rh) A POS [facility] HermannCARDIAC [id number] 06:44:00 Test Item Value Reference Range Interpretation Comments CK MB Index (test 1.6 See_Comment [Automate d message] The code = CK MB Index) system [facility] generated this result transmit gaye reference range : <=2.5. The reference range was not used to interpr et this result as satish l/abnormal. [facility] [employer] [id number] 06:44:00 Test Item Value Reference Range Interpretation Comments CK MB (test code = CK MB) 0.9 0.5-3.6 [facility] CenterChina Communications Services CorporationAC [id number] 06:44:00 Test Item Value Reference Range Interpretation Comments Total CK (test code = Total CK) 57 12-191 [facility] CenterChina Communications Services CorporationAC [id number] 06:44:00 Test Item Value Reference Range Interpretation Comments Troponin-I (test code no gt See_Comment [Auto mated message] The = Troponin-I) system which g enerated this result transmit gaye reference range : <=0.40. The reference r ozzy was not used to interpr et this result as satish l/abnormal. [facility] [employer] MWEAK6312-03-15 06:44:00 Test Item Value Reference Range Interpretation Comments Albumin Lvl (test code = Albumin Lvl) 3.5 3.5-5.0 [facility] [employer] [id number] 06:44:00 Test Item Value Reference Range Interpretation Comments Total Protein (test code = Total 7.0 6.4-8.4 Protein) [facility] [employer] [id number] 06:44:00 Test Item Value Reference Range Interpretation Comments ALT (test code = ALT) 19 See_Comment [Auto mated message] The system which ge nerated this result transmit gaye reference range : <=65. The reference range was not used to interpr et this result as satish l/abnormal. [facility] [employer] [id number] 06:44:00 Test Item Value Reference Range Interpretation Comments AST (test code = AST) 10 See_Comment [Auto mated message] The system which ge nerated this result transmit gaye reference range : <=37. The reference range was not used to interpr et this result as satish l/abnormal. [facility] [employer] [id number] 06:44:00 Test Item Value Reference Range Interpretation Comments Alk Phos (test code = Alk Phos) 79 39-136 [facility] [employer] [id number] 06:44:00 Test Item Value Reference Range Interpretation Comments Bili Total (test code = Bili Total) 0.4 0.2-1.3 [place] 726156-07-03 06:44:00 Test Item Value Reference Range Interpretation Comments Bili Direct (test code 0.1 See_Comment [Aut omated message] The = Bili Direct) system which generated this result tra nsmitted reference range : <=0.3. The reference r ozzy was not used to int erpret this result as satish l/abnormal. [facility]2016-07-03 06:44:00 Test Item Value Reference Range Interpretation Comments Globulin (test code = Globulin) 3.5 2.0-4.0 [place] 726156-07-03 06:44:00 Test Item Value Reference Range Interpretation Comments A/G Ratio (test code = A/G Ratio) 1.0 0.7-1.6 [place] 726156-07-03 06:44:00 Test Item Value Reference Range Interpretation Comments Bili Indirect (test 0.3 See_Comment [Automa gaye message] The code = Bili Indirect) system which generated this result tra nsmitted reference range : <=1.0. The reference r ozzy was not used to int erpret this result as normal/abnormal . [facility]2016-07-03 06:44:00 Test Item Value Reference Range Interpretation Comments eGFR (test code = eGFR) 107 [facility]2016-07-03 06:44:00 Test Item Value Reference Range Interpretation Comments BUN (test code = BUN) 8 7-22 [facility]2016-07-03 06:44:00 Test Item Value Reference Range Interpretation Comments Glucose Lvl (test code = Glucose Lvl) 91 70-99 [facility]2016-07-03 06:44:00 Test Item Value Reference Range Interpretation Comments Sodium Lvl (test code = Sodium Lvl) 138 135-145 [facility]2016-07-03 06:44:00 Test Item Value Reference Range Interpretation Comments Creatinine Lvl (test code = Creatinine 0.70 0.50-1.40 Lvl) [facility]2016-07-03 06:44:00 Test Item Value Reference Range Interpretation Comments Potassium Lvl (test code = Potassium 3.3 3.5-5.1 Lvl) [facility]2016-07-03 06:44:00 Test Item Value Reference Range Interpretation Comments CO2 (test code = CO2) 25 24-32 [facility]2016-07-03 06:44:00 Test Item Value Reference Range Interpretation Comments Chloride Lvl (test code = Chloride Lvl) 106 95-109 [facility]2016-07-03 06:44:00 Test Item Value Reference Range Interpretation Comments Calcium Lvl (test code = Calcium Lvl) 8.1 8.5-10.5 [facility]2016-07-03 06:44:00 Test Item Value Reference Range Interpretation Comments AGAP (test code = AGAP) 10.3 10.0-20.0 [facility]2016-07-03 06:44:00 Test Item Value Reference Range Interpretation Comments Magnesium Lvl (test code = Magnesium 2.2 1.8-2.4 Lvl) [place] [id number] 06:44:00 Test Item Value Reference Range Interpretation Comments S Preg (test code = S Negative *NA*(02/13/16 Preg) 1:44 AM) [facility]HbhsyekWGROULZLWG4784-78-13 06:44:00 Test Item Value Reference Range Interpretation Comments Basophils (test code = 0.1 See_Comment [Aut omated message] The Basophils) system which ge nerated this result tra nsmitted reference range : <=1.0. The reference r ozzy was not used to int erpret this result as normal/abnormal . [facility] CenterCknazjyMUZUOPENMA4420-85-83 06:44:00 Test Item Value Reference Range Interpretation Comments Monocytes # (test code 0.3 See_Comment [Aut omated message] The = Monocytes #) system which generated this result tra nsmitted reference range : <=0.8. The reference r ozzy was not used to int erpret this result as normal/abnormal . [facility]2015-01-23 07:51:00 Test Item Value Reference Range Interpretation Comments Globulin (test code = Globulin) 3.9 2.0-4.0 [facility]2015-01-23 07:51:00 Test Item Value Reference Range Interpretation Comments A/G Ratio (test code = A/G Ratio) 0.9 0.7-1.6 [place] [id number] 07:51:00 Test Item Value Reference Range Interpretation Comments hCG Tot (test code = hCG Tot) no gt [facility] CenterVvxklhiNDZHWTJZLM7863-42-39 07:51:00 Test Item Value Reference Range Interpretation Comments MCHC (test code = MCHC) 33.8 32.0-36.0 [facility] CenterVutrxtbWSFDVNTKVI3943-68-91 07:51:00 Test Item Value Reference Range Interpretation Comments MCH (test code = MCH) 30.3 pg 27.0-31.0 [facility] CenterGpbhxovLXBEQRNTAR9287-74-29 07:51:00 Test Item Value Reference Range Interpretation Comments RDW (test code = RDW) 13.0 11.5-14.5 [facility] CenterCxkwfrwNNCLJMQRRT5835-31-12 07:51:00 Test Item Value Reference Range Interpretation Comments MPV (test code = MPV) 8.4 7.4-10.4 [facility] CenterAufvuwvXHMQNYYTHZ7064-68-29 07:51:00 Test Item Value Reference Range Interpretation Comments Platelet (test code = Platelet) 356 133-450 [facility] CenterCeyhrttKRWHTXPSYU4002-56-93 07:51:00 Test Item Value Reference Range Interpretation Comments RBC (test code = RBC) 4.45 4.20-5.40 [facility] CenterNdghcbsSNDHJWTSMU5030-51-71 07:51:00 Test Item Value Reference Range Interpretation Comments WBC (test code = WBC) 12.9 3.7-10.4 [facility] CenterKzkwahdCVVKKNCCNX1819-06-10 07:51:00 Test Item Value Reference Range Interpretation Comments Hgb (test code = Hgb) 13.5 12.0-16.0 [facility] CenterSskxddkDZJNPDCHHY7690-17-47 07:51:00 Test Item Value Reference Range Interpretation Comments MCV (test code = MCV) 89.7 80.0-98.0 [facility] CenterJcqaatnCPARMAHUBH9726-30-07 07:51:00 Test Item Value Reference Range Interpretation Comments Hct (test code = Hct) 39.9 36.0-48.0 [facility] CenterBaucmalCYQGINKORL2914-67-64 07:51:00 Test Item Value Reference Range Interpretation Comments Eosinophils # (test code 0.3 See_Comment [A utomated message] The = Eosinophils #) system whic h generated this result tra nsmitted reference range : <=0.5. The reference r ozzy was not used to int erpret this result as normal/abnormal . [facility] CenterIqlujfpHRJAYACRDC5286-55-78 07:51:00 Test Item Value Reference Range Interpretation Comments Lymphocytes # (test code = Lymphocytes 3.6 1.0-5.5 #) [facility] CenterTsnezvxOQUDZDAENP0926-44-39 07:51:00 Test Item Value Reference Range Interpretation Comments Monocytes # (test code 0.7 See_Comment [Aut omated message] The = Monocytes #) system which generated this result tra nsmitted reference range : <=0.8. The reference r ozzy was not used to int erpret this result as normal/abnormal . [facility] CenterZrfaqozQWTOMFJXVK3184-66-68 07:51:00 Test Item Value Reference Range Interpretation Comments Segs (test code = Segs) 63.9 45.0-75.0 [place] [id number] 07:51:00 Test Item Value Reference Range Interpretation Comments Segs-Bands # (test code = Segs-Bands #) 8.2 1.5-8.1 [facility] CenterGzpgwbuHJAUNOCCFJ9438-04-88 07:51:00 Test Item Value Reference Range Interpretation Comments Basophils (test code = 0.7 See_Comment [Aut omated message] The Basophils) system which ge nerated this result tra nsmitted reference range : <=1.0. The reference r ozzy was not used to int erpret this result as normal/abnormal . [facility] CenterTujpiviQXRTCWOXTL0102-66-25 07:51:00 Test Item Value Reference Range Interpretation Comments Monocytes (test code = Monocytes) 5.4 2.0-12.0 [facility] CenterNfaoxwzFQVRROZHZR4125-34-69 07:51:00 Test Item Value Reference Range Interpretation Comments Eosinophils (test code = 2.3 See_Comment [A utomated message] The Eosinophils) system which ge nerated this result tra nsmitted reference range : <=4.0. The reference r ozzy was not used to int erpret this result as normal/abnormal . [facility] CenterGkqfumgDZZUSGNFMG0319-64-10 07:51:00 Test Item Value Reference Range Interpretation Comments Lymphocytes (test code = Lymphocytes) 27.7 20.0-40.0 [facility] CenterQjbrvwgLYOCYAAODD0147-70-45 07:51:00 Test Item Value Reference Range Interpretation Comments Basophils # (test code 0.1 See_Comment [Aut omated message] The = Basophils #) system which generated this result tra nsmitted reference range : <=0.2. The reference r ozzy was not used to int erpret this result as normal/abnormal . [facility] AND [id number] 07:51:00 Test Item Value Reference Range Interpretation Comments UA Urobilinogen (test code = UA 1.0 0.1-1.0 Urobilinogen) [facility] AND [id number] 07:51:00 Test Item Value Reference Range Interpretation Comments UA Turbidity (test code Cloudy *ABN*(09/04/14 = UA Turbidity) 1:51 AM) [facility] AND [id number] 07:51:00 Test Item Value Reference Range Interpretation Comments UA Color (test code = Red *ABN*(09/04/14 1:51 UA Color) AM) [facility] AND [id number] 07:51:00 Test Item Value Reference Range Interpretation Comments UA Ketones (test code Negative *NA*(09/04/14 = UA Ketones) 1:51 AM) [facility] AND [id number] 07:51:00 Test Item Value Reference Range Interpretation Comments UA Glucose (test code Negative (09/04/14 1:51 = UA Glucose) AM) [facility] AND [id number] 07:51:00 Test Item Value Reference Range Interpretation Comments UA Protein (test code = Trace *ABN*(09/04/14 UA Protein) 1:51 AM) [facility] AND [id number] 07:51:00 Test Item Value Reference Range Interpretation Comments UA pH (test code = UA pH) 8.0 1 5.0-8.0 [facility] AND [id number] 07:51:00 Test Item Value Reference Range Interpretation Comments UA Spec Grav (test code = UA Spec 1.015 1 Grav) [facility] AND [id number] 07:51:00 Test Item Value Reference Range Interpretation Comments UA Bili (test code = Negative *NA*(09/04/14 UA Bili) 1:51 AM) [facility] AND [id number] 07:51:00 Test Item Value Reference Range Interpretation Comments UA Blood (test code = Large *ABN*(09/04/14 UA Blood) 1:51 AM) [facility] AND [id number] 07:51:00 Test Item Value Reference Range Interpretation Comments UA Leuk Est (test Negative (09/04/14 1:51 code = UA Leuk Est) AM) [facility] AND [id number] 07:51:00 Test Item Value Reference Range Interpretation Comments UA Nitrite (test code Negative (09/04/14 1:51 = UA Nitrite) AM) [facility] AND [id number] 07:51:00 Test Item Value Reference Range Interpretation Comments UA Amorph Joselin (test code = UA Few /HPF Amorph Joselin) [facility] AND [id number] 07:51:00 Test Item Value Reference Range Interpretation Comments UA RBC (test code 51-100 /HPF See_Comment [Automate d message] The = UA RBC) system which ge nerated this result tra nsmitted reference range : <=2. The reference r ozzy was not used to int erpret this result as normal/abnormal . [facility] AND [id number] 07:51:00 Test Item Value Reference Range Interpretation Comments UA WBC (test code = UA WBC) 6-10 /HPF [facility] AND [id number] 07:51:00 Test Item Value Reference Range Interpretation Comments UA Bacteria (test code = UA Few /HPF Bacteria) [facility] AND [id number] 07:51:00 Test Item Value Reference Range Interpretation Comments UA Sq Epi (test code = UA Sq Occasional /LPF Epi) [facility] [employer] [id number] 07:51:00 Test Item Value Reference Range Interpretation Comments ABO/Rh (test code = ABO/Rh) A POS [facility] [employer] [id number] 07:51:00 Test Item Value Reference Range Interpretation Comments Antibody Scrn (test Negative (09/04/14 1:51 code = Antibody Scrn) AM) [facility] [employer] [id number] 07:51:00 Test Item Value Reference Range Interpretation Comments Albumin Lvl (test code = Albumin Lvl) 3.4 3.5-5.0 [facility] [employer] [id number] 07:51:00 Test Item Value Reference Range Interpretation Comments Alk Phos (test code = Alk Phos) 64 39-136 [facility]2015-01-23 07:51:00 Test Item Value Reference Range Interpretation Comments ALT (test code = ALT) 18 See_Comment [Auto mated message] The system which ge nerated this result transmit gaye reference range : <=65. The reference range was not used to interpr et this result as satish l/abnormal. [place] [id number] 07:51:00 Test Item Value Reference Range Interpretation Comments AST (test code = AST) 12 See_Comment [Auto mated message] The system which ge nerated this result transmit gaye reference range : <=37. The reference range was not used to interpr et this result as satish l/abnormal. [facility]2015-01-23 07:51:00 Test Item Value Reference Range Interpretation Comments eGFR (test code = eGFR) 93 [facility]2015-01-23 07:51:00 Test Item Value Reference Range Interpretation Comments Bili Total (test code = Bili Total) 0.3 0.2-1.3 [facility]2015-01-23 07:51:00 Test Item Value Reference Range Interpretation Comments Chloride Lvl (test code = Chloride Lvl) 108 95-109 [facility] [id number] 07:51:00 Test Item Value Reference Range Interpretation Comments Sodium Lvl (test code = Sodium Lvl) 138 135-145 [facility]2015-01-23 07:51:00 Test Item Value Reference Range Interpretation Comments Potassium Lvl (test code = Potassium 3.9 3.5-5.1 Lvl) [facility]2015-01-23 07:51:00 Test Item Value Reference Range Interpretation Comments CO2 (test code = CO2) 22 24-32 [facility]FlyClipDU[id number] 07:51:00 Test Item Value Reference Range Interpretation Comments Calcium Lvl (test code = Calcium Lvl) 8.8 8.5-10.5 [facility]2015-01-23 07:51:00 Test Item Value Reference Range Interpretation Comments Glucose Lvl (test code = Glucose Lvl) 98 70-99 [facility]2015-01-23 07:51:00 Test Item Value Reference Range Interpretation Comments Total Protein (test code = Total 7.3 6.4-8.4 Protein) [facility]2015-01-23 07:51:00 Test Item Value Reference Range Interpretation Comments BUN (test code = BUN) 12 7- [facility]2015-01-23 07:51:00 Test Item Value Reference Range Interpretation Comments Creatinine Lvl (test code = Creatinine 0.8 0.5-1.4 Lvl) [facility]2015-01-23 07:51:00 Test Item Value Reference Range Interpretation Comments AGAP (test code = AGAP) 11.9 10.0-20.0 [facility]2015-01-23 07:51:00 Test Item Value Reference Range Interpretation Comments B/C Ratio (test code = B/C Ratio) 15 6-25 [facility]2015-01-23 07:51:00 Test Item Value Reference Range Interpretation Comments Globulin (test code = Globulin) 3.9 2.0-4.0 [facility]2015-01-23 07:51:00 Test Item Value Reference Range Interpretation Comments A/G Ratio (test code = A/G Ratio) 0.9 0.7-1.6 [facility]PFSMGDFJRCJJZ4988-78-86 07:51:00 Test Item Value Reference Range Interpretation Comments hCG Tot (test code = hCG Tot) no gt [facility]BapbpomHNPAGGWSYJ4731-28-47 07:51:00 Test Item Value Reference Range Interpretation Comments MCHC (test code = MCHC) 33.8 32.0-36.0 [facility] CenterMwacqpyWKZEAGBKQH5997-08-11 07:51:00 Test Item Value Reference Range Interpretation Comments MCH (test code = MCH) 30.3 pg 27.0-31.0 [facility] CenterWyszsxvQQYYUMGWAS0758-43-01 07:51:00 Test Item Value Reference Range Interpretation Comments RDW (test code = RDW) 13.0 11.5-14.5 [facility] CenterOrcvgfdXUQBSPELHH9917-84-27 07:51:00 Test Item Value Reference Range Interpretation Comments MPV (test code = MPV) 8.4 7.4-10.4 [facility] CenterJxtsfxzQSMDZJKNNJ4959-18-23 07:51:00 Test Item Value Reference Range Interpretation Comments Platelet (test code = Platelet) 356 133-450 [place] [id number] 07:51:00 Test Item Value Reference Range Interpretation Comments RBC (test code = RBC) 4.45 4.20-5.40 [facility] CenterZzqlidoCSWFNIZAWE0348-24-03 07:51:00 Test Item Value Reference Range Interpretation Comments WBC (test code = WBC) 12.9 3.7-10.4 [facility] CenterWzqkoewKMXQCLOHWV3685-02-48 07:51:00 Test Item Value Reference Range Interpretation Comments Hgb (test code = Hgb) 13.5 12.0-16.0 [facility] CenterYjbyfrbLCDGEWMJCC0908-03-37 07:51:00 Test Item Value Reference Range Interpretation Comments MCV (test code = MCV) 89.7 80.0-98.0 [facility] C[id number] 07:51:00 Test Item Value Reference Range Interpretation Comments Hct (test code = Hct) 39.9 36.0-48.0 [facility] CenterEiyedjaAQDBZVNEWU4028-46-02 07:51:00 Test Item Value Reference Range Interpretation Comments Eosinophils # (test code 0.3 See_Comment [A utomated message] The = Eosinophils #) system whic h generated this result tra nsmitted reference range : <=0.5. The reference r ozzy was not used to int erpret this result as normal/abnormal . [facility] CenterTvacwxsSQPFYXHTAK5073-22-18 07:51:00 Test Item Value Reference Range Interpretation Comments Lymphocytes # (test code = Lymphocytes 3.6 1.0-5.5 #) [facility] CenterGfawehpKEPJGOCCCF3303-62-15 07:51:00 Test Item Value Reference Range Interpretation Comments Monocytes # (test code 0.7 See_Comment [Aut omated message] The = Monocytes #) system which generated this result tra nsmitted reference range : <=0.8. The reference r ozzy was not used to int erpret this result as normal/abnormal . [facility] CenterQuofdywWLTXSOYNWM0980-91-04 07:51:00 Test Item Value Reference Range Interpretation Comments Segs (test code = Segs) 63.9 45.0-75.0 [facility] CenterFpwmrqsHMZGPKGDFA1365-88-79 07:51:00 Test Item Value Reference Range Interpretation Comments Segs-Bands # (test code = Segs-Bands #) 8.2 1.5-8.1 [facility] CenterAlqjxziDGSRLSLNEZ9815-80-86 07:51:00 Test Item Value Reference Range Interpretation Comments Basophils (test code = 0.7 See_Comment [Aut omated message] The Basophils) system which ge nerated this result tra nsmitted reference range : <=1.0. The reference r ozzy was not used to int erpret this result as normal/abnormal . [facility] CenterIazubrlPWGDTVCLWM7841-03-50 07:51:00 Test Item Value Reference Range Interpretation Comments Monocytes (test code = Monocytes) 5.4 2.0-12.0 [facility] CenterJeqjfokUYJLBPQPCO3703-10-34 07:51:00 Test Item Value Reference Range Interpretation Comments Eosinophils (test code = 2.3 See_Comment [A utomated message] The Eosinophils) system which ge nerated this result tra nsmitted reference range : <=4.0. The reference r ozzy was not used to int erpret this result as normal/abnormal . [facility] CenterTyajrnrQIBEEDJYDK1878-88-11 07:51:00 Test Item Value Reference Range Interpretation Comments Lymphocytes (test code = Lymphocytes) 27.7 20.0-40.0 [facility] CenterBsbbwsaYBVUEXDANW1531-23-02 07:51:00 Test Item Value Reference Range Interpretation Comments Basophils # (test code 0.1 See_Comment [Aut omated message] The = Basophils #) system which generated this result tra nsmitted reference range : <=0.2. The reference r ozzy was not used to int erpret this result as normal/abnormal . [facility] AND [id number] 07:51:00 Test Item Value Reference Range Interpretation Comments UA Urobilinogen (test code = UA 1.0 0.1-1.0 Urobilinogen) [facility] AND [id number] 07:51:00 Test Item Value Reference Range Interpretation Comments UA Turbidity (test code Cloudy *ABN*(09/04/14 = UA Turbidity) 1:51 AM) [facility]2015-01-23 07:51:00 Test Item Value Reference Range Interpretation Comments UA Color (test code = Red *ABN*(09/04/14 1:51 UA Color) AM) [facility]2015-01-23 07:51:00 Test Item Value Reference Range Interpretation Comments UA Ketones (test code Negative *NA*(09/04/14 = UA Ketones) 1:51 AM) [facility] AND [id number] 07:51:00 Test Item Value Reference Range Interpretation Comments UA Glucose (test code Negative (09/04/14 1:51 = UA Glucose) AM) [facility] AND [id number] 07:51:00 Test Item Value Reference Range Interpretation Comments UA Protein (test code = Trace *ABN*(09/04/14 UA Protein) 1:51 AM) [facility] AND [id number] 07:51:00 Test Item Value Reference Range Interpretation Comments UA pH (test code = UA pH) 8.0 1 5.0-8.0 [facility] AND [id number] 07:51:00 Test Item Value Reference Range Interpretation Comments UA Spec Grav (test code = UA Spec 1.015 1 Grav) [facility] AND [id number] 07:51:00 Test Item Value Reference Range Interpretation Comments UA Bili (test code = Negative *NA*(09/04/14 UA Bili) 1:51 AM) [facility] AND [id number] 07:51:00 Test Item Value Reference Range Interpretation Comments UA Blood (test code = Large *ABN*(09/04/14 UA Blood) 1:51 AM) [facility] AND [id number] 07:51:00 Test Item Value Reference Range Interpretation Comments UA Leuk Est (test Negative (09/04/14 1:51 code = UA Leuk Est) AM) [facility] AND [id number] 07:51:00 Test Item Value Reference Range Interpretation Comments UA Nitrite (test code Negative (09/04/14 1:51 = UA Nitrite) AM) [facility] AND [id number] 07:51:00 Test Item Value Reference Range Interpretation Comments UA Amorph Joselin (test code = UA Few /HPF Amorph Joselin) [facility] AND [id number] 07:51:00 Test Item Value Reference Range Interpretation Comments UA RBC (test code 51-100 /HPF See_Comment [Automate d message] The = UA RBC) system which ge nerated this result tra nsmitted reference range : <=2. The reference r ozzy was not used to int erpret this result as normal/abnormal . [facility] AND [id number] 07:51:00 Test Item Value Reference Range Interpretation Comments UA WBC (test code = UA WBC) 6-10 /HPF [facility] AND [id number] 07:51:00 Test Item Value Reference Range Interpretation Comments UA Bacteria (test code = UA Few /HPF Bacteria) [facility] AND [id number] 07:51:00 Test Item Value Reference Range Interpretation Comments UA Sq Epi (test code = UA Sq Occasional /LPF Epi) [facility] [employer] [facility] [id number] 07:51:00 Test Item Value Reference Range Interpretation Comments ABO/Rh (test code = ABO/Rh) A POS [facility] [employer] [facility] [id number] 07:51:00 Test Item Value Reference Range Interpretation Comments Antibody Scrn (test Negative (09/04/14 1:51 code = Antibody Scrn) AM) [facility] [employer] [id number] 07:51:00 Test Item Value Reference Range Interpretation Comments Albumin Lvl (test code = Albumin Lvl) 3.4 3.5-5.0 [facility] [employer] [id number] 07:51:00 Test Item Value Reference Range Interpretation Comments Alk Phos (test code = Alk Phos) 64 39-136 [facility] [employer] [id number] 07:51:00 Test Item Value Reference Range Interpretation Comments ALT (test code = ALT) 18 See_Comment [Auto mated message] The system which ge nerated this result transmit gaye reference range : <=65. The reference range was not used to interpr et this result as satish l/abnormal. [facility] [employer] [id number] 07:51:00 Test Item Value Reference Range Interpretation Comments AST (test code = AST) 12 See_Comment [Auto mated message] The system which ge nerated this result transmit gaye reference range : <=37. The reference range was not used to interpr et this result as satish l/abnormal. [facility] [employer] [id number] 07:51:00 Test Item Value Reference Range Interpretation Comments eGFR (test code = eGFR) 93 [facility] [employer] [id number] 07:51:00 Test Item Value Reference Range Interpretation Comments Bili Total (test code = Bili Total) 0.3 0.2-1.3 [facility]2015-01-23 07:51:00 Test Item Value Reference Range Interpretation Comments Chloride Lvl (test code = Chloride Lvl) 108 95-109 [facility]2015-01-23 07:51:00 Test Item Value Reference Range Interpretation Comments Sodium Lvl (test code = Sodium Lvl) 138 135-145 [facility]2015-01-23 07:51:00 Test Item Value Reference Range Interpretation Comments Potassium Lvl (test code = Potassium 3.9 3.5-5.1 Lvl) [facility]2015-01-23 07:51:00 Test Item Value Reference Range Interpretation Comments CO2 (test code = CO2) 22 24-32 [facility]2015-01-23 07:51:00 Test Item Value Reference Range Interpretation Comments Calcium Lvl (test code = Calcium Lvl) 8.8 8.5-10.5 [facility]2015-01-23 07:51:00 Test Item Value Reference Range Interpretation Comments Glucose Lvl (test code = Glucose Lvl) 98 70-99 [facility]2015-01-23 07:51:00 Test Item Value Reference Range Interpretation Comments Total Protein (test code = Total 7.3 6.4-8.4 Protein) [facility]2015-01-23 07:51:00 Test Item Value Reference Range Interpretation Comments BUN (test code = BUN) 12 - [facility]2015-01-23 07:51:00 Test Item Value Reference Range Interpretation Comments Creatinine Lvl (test code = Creatinine 0.8 0.5-1.4 Lvl) [facility]2015-01-23 07:51:00 Test Item Value Reference Range Interpretation Comments AGAP (test code = AGAP) 11.9 10.0-20.0 [facility]2015-01-23 07:51:00 Test Item Value Reference Range Interpretation Comments B/C Ratio (test code = B/C Ratio) 15 6-25 [facility]2015-01-23 07:51:00 Test Item Value Reference Range Interpretation Comments Globulin (test code = Globulin) 3.9 2.0-4.0 [facility]2015-01-23 07:51:00 Test Item Value Reference Range Interpretation Comments A/G Ratio (test code = A/G Ratio) 0.9 0.7-1.6 [id number] 07:51:00 Test Item Value Reference Range Interpretation Comments hCG Tot (test code = hCG Tot) no gt [id number] 07:51:00 Test Item Value Reference Range Interpretation Comments MCHC (test code = MCHC) 33.8 32.0-36.0 [facility] CenterPiabyspCPRMDDFPPO3573-80-61 07:51:00 Test Item Value Reference Range Interpretation Comments MCH (test code = MCH) 30.3 pg 27.0-31.0 [facility] CenterSxafbpeDBXIMEFJRD8212-53-81 07:51:00 Test Item Value Reference Range Interpretation Comments RDW (test code = RDW) 13.0 11.5-14.5 [facility] CenterTeacplkNQMTVMPNYR9710-59-91 07:51:00 Test Item Value Reference Range Interpretation Comments MPV (test code = MPV) 8.4 7.4-10.4 [facility] CenterAdsaafqPOPKWDFWSX6071-17-66 07:51:00 Test Item Value Reference Range Interpretation Comments Platelet (test code = Platelet) 356 133-450 [facility] CenterDddcsrnAFBPGXORVZ7917-78-26 07:51:00 Test Item Value Reference Range Interpretation Comments RBC (test code = RBC) 4.45 4.20-5.40 [facility] CenterMfoqkaeEGJRABAPXL9102-97-83 07:51:00 Test Item Value Reference Range Interpretation Comments WBC (test code = WBC) 12.9 3.7-10.4 [facility] CenterOnwhasnMGSQIORAPM3946-09-61 07:51:00 Test Item Value Reference Range Interpretation Comments Hgb (test code = Hgb) 13.5 12.0-16.0 [facility] CenterZjomjmgXQRUYATARO1115-47-74 07:51:00 Test Item Value Reference Range Interpretation Comments MCV (test code = MCV) 89.7 80.0-98.0 [facility] CenterUhtihqnJZXDEBQJJO7107-57-08 07:51:00 Test Item Value Reference Range Interpretation Comments Hct (test code = Hct) 39.9 36.0-48.0 [facility] CenterJkomwjzFWJTQJNULR4804-38-10 07:51:00 Test Item Value Reference Range Interpretation Comments Eosinophils # (test code 0.3 See_Comment [A utomated message] The = Eosinophils #) system ic h generated this result tra nsmitted reference range : <=0.5. The reference r ozzy was not used to int erpret this result as normal/abnormal . [facility] CenterIedmrtwZJQXLLSMWR1241-73-27 07:51:00 Test Item Value Reference Range Interpretation Comments Lymphocytes # (test code = Lymphocytes 3.6 1.0-5.5 #) [facility] Cent[id number] 07:51:00 Test Item Value Reference Range Interpretation Comments Monocytes # (test code 0.7 See_Comment [Aut omated message] The = Monocytes #) system which generated this result tra nsmitted reference range : <=0.8. The reference r ozzy was not used to int erpret this result as normal/abnormal . [facility] CenterWstkuesJSQNRHRUZJ9147-75-98 07:51:00 Test Item Value Reference Range Interpretation Comments Segs (test code = Segs) 63.9 45.0-75.0 [facility] CenterNwczdykHOFFBCPYDC3844-49-91 07:51:00 Test Item Value Reference Range Interpretation Comments Segs-Bands # (test code = Segs-Bands #) 8.2 1.5-8.1 [facility] CenterOplviugDWZJJUJFVY1258-35-17 07:51:00 Test Item Value Reference Range Interpretation Comments Basophils (test code = 0.7 See_Comment [Aut omated message] The Basophils) system which ge nerated this result tra nsmitted reference range : <=1.0. The reference r ozzy was not used to int erpret this result as normal/abnormal . [facility] CenterYkvomuwEXCVEJWAZM1720-24-76 07:51:00 Test Item Value Reference Range Interpretation Comments Monocytes (test code = Monocytes) 5.4 2.0-12.0 [facility] CenterTaicdxbVMEADCGUUC1787-79-37 07:51:00 Test Item Value Reference Range Interpretation Comments Eosinophils (test code = 2.3 See_Comment [A utomated message] The Eosinophils) system which ge nerated this result tra nsmitted reference range : <=4.0. The reference r ozzy was not used to int erpret this result as normal/abnormal . [facility] CenterPvxioxnCCEYYEMIYE4754-57-27 07:51:00 Test Item Value Reference Range Interpretation Comments Lymphocytes (test code = Lymphocytes) 27.7 20.0-40.0 [facility]AA[facility]68[facility] 07:51:00 Test Item Value Reference Range Interpretation Comments Basophils # (test code 0.1 See_Comment [Aut omated message] The = Basophils #) system which generated this result tra nsmitted reference range : <=0.2. The reference r ozzy was not used to int erpret this result as normal/abnormal . [facility] AND [id number] 07:51:00 Test Item Value Reference Range Interpretation Comments UA Urobilinogen (test code = UA 1.0 0.1-1.0 Urobilinogen) [facility] AND [id number] 07:51:00 Test Item Value Reference Range Interpretation Comments UA Turbidity (test code Cloudy *ABN*(09/04/14 = UA Turbidity) 1:51 AM) [facility] AND [id number] 07:51:00 Test Item Value Reference Range Interpretation Comments UA Color (test code = Red *ABN*(09/04/14 1:51 UA Color) AM) [facility] AND [id number] 07:51:00 Test Item Value Reference Range Interpretation Comments UA Ketones (test code Negative *NA*(09/04/14 = UA Ketones) 1:51 AM) [facility] AND [id number] 07:51:00 Test Item Value Reference Range Interpretation Comments UA Glucose (test code Negative (09/04/14 1:51 = UA Glucose) AM) [facility] AND [id number] 07:51:00 Test Item Value Reference Range Interpretation Comments UA Protein (test code = Trace *ABN*(09/04/14 UA Protein) 1:51 AM) [facility] AND [id number] 07:51:00 Test Item Value Reference Range Interpretation Comments UA pH (test code = UA pH) 8.0 1 5.0-8.0 [facility] AND [id number] 07:51:00 Test Item Value Reference Range Interpretation Comments UA Spec Grav (test code = UA Spec 1.015 1 Grav) [facility] AND [id number] 07:51:00 Test Item Value Reference Range Interpretation Comments UA Bili (test code = Negative *NA*(09/04/14 UA Bili) 1:51 AM) [facility] AND [id number] 07:51:00 Test Item Value Reference Range Interpretation Comments UA Blood (test code = Large *ABN*(09/04/14 UA Blood) 1:51 AM) [facility] AND [id number] 07:51:00 Test Item Value Reference Range Interpretation Comments UA Leuk Est (test Negative (09/04/14 1:51 code = UA Leuk Est) AM) [facility] AND [id number] 07:51:00 Test Item Value Reference Range Interpretation Comments UA Nitrite (test code Negative (09/04/14 1:51 = UA Nitrite) AM) [facility] AND [id number] 07:51:00 Test Item Value Reference Range Interpretation Comments UA Amorph Joselin (test code = UA Few /HPF Amorph Joselin) [facility] AND [id number] 07:51:00 Test Item Value Reference Range Interpretation Comments UA RBC (test code 51-100 /HPF See_Comment [Automate d message] The = UA RBC) system which ge nerated this result tra nsmitted reference range : <=2. The reference r ozzy was not used to int erpret this result as normal/abnormal . [facility] AND [id number] 07:51:00 Test Item Value Reference Range Interpretation Comments UA WBC (test code = UA WBC) 6-10 /HPF [facility] AND [id number] 07:51:00 Test Item Value Reference Range Interpretation Comments UA Bacteria (test code = UA Few /HPF Bacteria) [facility] AND [id number] 07:51:00 Test Item Value Reference Range Interpretation Comments UA Sq Epi (test code = UA Sq Occasional /LPF Epi) [facility] [employer] [id number] 07:51:00 Test Item Value Reference Range Interpretation Comments ABO/Rh (test code = ABO/Rh) A POS [facility] [employer] [id number] 07:51:00 Test Item Value Reference Range Interpretation Comments Antibody Scrn (test Negative (09/04/14 1:51 code = Antibody Scrn) AM) [facility] GreetzannCHEM [id number] 07:51:00 Test Item Value Reference Range Interpretation Comments Albumin Lvl (test code = Albumin Lvl) 3.4 3.5-5.0 [facility]2015-01-23 07:51:00 Test Item Value Reference Range Interpretation Comments Alk Phos (test code = Alk Phos) 64 39-136 [facility]2015-01-23 07:51:00 Test Item Value Reference Range Interpretation Comments ALT (test code = ALT) 18 See_Comment [Auto mated message] The system which ge nerated this result transmit gaye reference range : <=65. The reference range was not used to interpr et this result as satish l/abnormal. [facility]2015-01-23 07:51:00 Test Item Value Reference Range Interpretation Comments AST (test code = AST) 12 See_Comment [Auto mated message] The system which ge nerated this result transmit gaye reference range : <=37. The reference range was not used to interpr et this result as satish l/abnormal. [facility]2015-01-23 07:51:00 Test Item Value Reference Range Interpretation Comments eGFR (test code = eGFR) 93 [facility]2015-01-23 07:51:00 Test Item Value Reference Range Interpretation Comments Bili Total (test code = Bili Total) 0.3 0.2-1.3 [facility]2015-01-23 07:51:00 Test Item Value Reference Range Interpretation Comments Chloride Lvl (test code = Chloride Lvl) 108 95-109 [facility]2015-01-23 07:51:00 Test Item Value Reference Range Interpretation Comments Sodium Lvl (test code = Sodium Lvl) 138 135-145 [facility]2015-01-23 07:51:00 Test Item Value Reference Range Interpretation Comments Potassium Lvl (test code = Potassium 3.9 3.5-5.1 Lvl) [facility]2015-01-23 07:51:00 Test Item Value Reference Range Interpretation Comments CO2 (test code = CO2) 22 24-32 [facility]2015-01-23 07:51:00 Test Item Value Reference Range Interpretation Comments Calcium Lvl (test code = Calcium Lvl) 8.8 8.5-10.5 [facility]2015-01-23 07:51:00 Test Item Value Reference Range Interpretation Comments Glucose Lvl (test code = Glucose Lvl) 98 70-99 [facility]2015-01-23 07:51:00 Test Item Value Reference Range Interpretation Comments Total Protein (test code = Total 7.3 6.4-8.4 Protein) [facility]2015-01-23 07:51:00 Test Item Value Reference Range Interpretation Comments BUN (test code = BUN) 12 7-22 [facility]2015-01-23 07:51:00 Test Item Value Reference Range Interpretation Comments Creatinine Lvl (test code = Creatinine 0.8 0.5-1.4 Lvl) [facility]2015-01-23 07:51:00 Test Item Value Reference Range Interpretation Comments AGAP (test code = AGAP) 11.9 10.0-20.0 [facility]2015-01-23 07:51:00 Test Item Value Reference Range Interpretation Comments B/C Ratio (test code = B/C Ratio) 15 6-25 [facility]2015-01-23 07:51:00 Test Item Value Reference Range Interpretation Comments Globulin (test code = Globulin) 3.9 2.0-4.0 [facility]2015-01-23 07:51:00 Test Item Value Reference Range Interpretation Comments A/G Ratio (test code = A/G Ratio) 0.9 0.7-1.6 [facility]FPE9708-13-88 07:51:00 Test Item Value Reference Range Interpretation Comments hCG Tot (test code = hCG Tot) no gt [facility]ps[facility]jsQJZKAIVUBX6234-13-10 07:51:00 Test Item Value Reference Range Interpretation Comments MCHC (test code = MCHC) 33.8 32.0-36.0 [facility] CenterPvsiwibMZUZARJRVZ0565-94-12 07:51:00 Test Item Value Reference Range Interpretation Comments MCH (test code = MCH) 30.3 pg 27.0-31.0 [facility] CenterWkrohuzOWHRCCRWGM9977-04-59 07:51:00 Test Item Value Reference Range Interpretation Comments RDW (test code = RDW) 13.0 11.5-14.5 [facility] CenterTkhpfdwCMZIZMSGCY5509-29-59 07:51:00 Test Item Value Reference Range Interpretation Comments MPV (test code = MPV) 8.4 7.4-10.4 [facility] CenterUwwudhgBOZOYHDHQH8782-32-93 07:51:00 Test Item Value Reference Range Interpretation Comments Platelet (test code = Platelet) 356 133-450 [facility] CenterResvhcxCULUAJCAZT1854-34-46 07:51:00 Test Item Value Reference Range Interpretation Comments RBC (test code = RBC) 4.45 4.20-5.40 [facility] CenterSvkxjciLEOWKUWCXO2402-69-64 07:51:00 Test Item Value Reference Range Interpretation Comments WBC (test code = WBC) 12.9 3.7-10.4 [facility] CenterKbylrixTMKKTZLRYQ2802-90-33 07:51:00 Test Item Value Reference Range Interpretation Comments Hgb (test code = Hgb) 13.5 12.0-16.0 [facility] CenterHewmhtpLDZVKCKWRP6668-89-54 07:51:00 Test Item Value Reference Range Interpretation Comments MCV (test code = MCV) 89.7 80.0-98.0 [facility] CenterEenlcgnOMXCAUPCHZ1495-80-28 07:51:00 Test Item Value Reference Range Interpretation Comments Hct (test code = Hct) 39.9 36.0-48.0 [facility] CenterEyheawcGJXUCQXIOS5735-30-56 07:51:00 Test Item Value Reference Range Interpretation Comments Eosinophils # (test code 0.3 See_Comment [A utomated message] The = Eosinophils #) system whic h generated this result tra nsmitted reference range : <=0.5. The reference r ozzy was not used to int erpret this result as normal/abnormal . [facility] CenterMpuuzkiGLJJQQBKMO2657-11-76 07:51:00 Test Item Value Reference Range Interpretation Comments Lymphocytes # (test code = Lymphocytes 3.6 1.0-5.5 #) [facility] CenterXwbegwuPGDISEMPOJ9062-66-53 07:51:00 Test Item Value Reference Range Interpretation Comments Monocytes # (test code 0.7 See_Comment [Aut omated message] The = Monocytes #) system which generated this result tra nsmitted reference range : <=0.8. The reference r ozzy was not used to int erpret this result as normal/abnormal . [facility] CenterSlxfqzeCXFXUYNKIH9016-79-50 07:51:00 Test Item Value Reference Range Interpretation Comments Segs (test code = Segs) 63.9 45.0-75.0 [facility] CenterPtsajlxMNJEPIZISX2749-18-84 07:51:00 Test Item Value Reference Range Interpretation Comments Segs-Bands # (test code = Segs-Bands #) 8.2 1.5-8.1 [facility] CenterLyzzdbmFIPDTBTNYU3629-45-50 07:51:00 Test Item Value Reference Range Interpretation Comments Basophils (test code = 0.7 See_Comment [Aut omated message] The Basophils) system which ge nerated this result tra nsmitted reference range : <=1.0. The reference r ozzy was not used to int erpret this result as normal/abnormal . [facility] CenterJsxlogwACKARLURHI4093-78-41 07:51:00 Test Item Value Reference Range Interpretation Comments Monocytes (test code = Monocytes) 5.4 2.0-12.0 [facility] CenterFprugglWRHAQHPTHE0420-68-38 07:51:00 Test Item Value Reference Range Interpretation Comments Eosinophils (test code = 2.3 See_Comment [A utomated message] The Eosinophils) system which ge nerated this result tra nsmitted reference range : <=4.0. The reference r ozzy was not used to int erpret this result as normal/abnormal . [facility] CenterLungynkUKIRGIKFPM8456-19-18 07:51:00 Test Item Value Reference Range Interpretation Comments Lymphocytes (test code = Lymphocytes) 27.7 20.0-40.0 [facility] CenterQiyniizUYAVNQZBQH3083-92-52 07:51:00 Test Item Value Reference Range Interpretation Comments Basophils # (test code 0.1 See_Comment [Aut omated message] The = Basophils #) system which generated this result tra nsmitted reference range : <=0.2. The reference r ozzy was not used to int erpret this result as normal/abnormal . [facility]2015-01-23 07:51:00 Test Item Value Reference Range Interpretation Comments UA Urobilinogen (test code = UA 1.0 0.1-1.0 Urobilinogen) [facility]2015-01-23 07:51:00 Test Item Value Reference Range Interpretation Comments UA Turbidity (test code Cloudy *ABN*(09/04/14 = UA Turbidity) 1:51 AM) [facility]2015-01-23 07:51:00 Test Item Value Reference Range Interpretation Comments UA Color (test code = Red *ABN*(09/04/14 1:51 UA Color) AM) [facility] AND [id number] 07:51:00 Test Item Value Reference Range Interpretation Comments UA Ketones (test code Negative *NA*(09/04/14 = UA Ketones) 1:51 AM) [facility] AND [id number] 07:51:00 Test Item Value Reference Range Interpretation Comments UA Glucose (test code Negative (09/04/14 1:51 = UA Glucose) AM) [facility] AND [id number] 07:51:00 Test Item Value Reference Range Interpretation Comments UA Protein (test code = Trace *ABN*(09/04/14 UA Protein) 1:51 AM) [facility] AND [id number] 07:51:00 Test Item Value Reference Range Interpretation Comments UA pH (test code = UA pH) 8.0 1 5.0-8.0 [facility] AND [id number] 07:51:00 Test Item Value Reference Range Interpretation Comments UA Spec Grav (test code = UA Spec 1.015 1 Grav) [facility] AND [id number] 07:51:00 Test Item Value Reference Range Interpretation Comments UA Bili (test code = Negative *NA*(09/04/14 UA Bili) 1:51 AM) [facility] AND [id number] 07:51:00 Test Item Value Reference Range Interpretation Comments UA Blood (test code = Large *ABN*(09/04/14 UA Blood) 1:51 AM) [facility] AND [id number] 07:51:00 Test Item Value Reference Range Interpretation Comments UA Leuk Est (test Negative (09/04/14 1:51 code = UA Leuk Est) AM) [facility] AND [id number] 07:51:00 Test Item Value Reference Range Interpretation Comments UA Nitrite (test code Negative (09/04/14 1:51 = UA Nitrite) AM) [facility] AND [id number] 07:51:00 Test Item Value Reference Range Interpretation Comments UA Amorph Joselin (test code = UA Few /HPF Amorph Joselin) [facility] AND [id number] 07:51:00 Test Item Value Reference Range Interpretation Comments UA RBC (test code 51-100 /HPF See_Comment [Automate d message] The = UA RBC) system which ge nerated this result tra nsmitted reference range : <=2. The reference r ozzy was not used to int erpret this result as normal/abnormal . [facility] AND [id number] 07:51:00 Test Item Value Reference Range Interpretation Comments UA WBC (test code = UA WBC) 6-10 /HPF [facility] AND [id number] 07:51:00 Test Item Value Reference Range Interpretation Comments UA Bacteria (test code = UA Few /HPF Bacteria) [facility] AND [id number] 07:51:00 Test Item Value Reference Range Interpretation Comments UA Sq Epi (test code = UA Sq Occasional /LPF Epi) [facility] [employer] [id number] 07:51:00 Test Item Value Reference Range Interpretation Comments ABO/Rh (test code = ABO/Rh) A POS [facility] [employer] [id number] 07:51:00 Test Item Value Reference Range Interpretation Comments Antibody Scrn (test Negative (09/04/14 1:51 code = Antibody Scrn) AM) [facility] [employer] [id number] 07:51:00 Test Item Value Reference Range Interpretation Comments Albumin Lvl (test code = Albumin Lvl) 3.4 3.5-5.0 [facility] [employer] [id number] 07:51:00 Test Item Value Reference Range Interpretation Comments Alk Phos (test code = Alk Phos) 64 39-136 [facility] [employer] [id number] 07:51:00 Test Item Value Reference Range Interpretation Comments ALT (test code = ALT) 18 See_Comment [Auto mated message] The system which ge nerated this result transmit gaye reference range : <=65. The reference range was not used to interpr et this result as satish l/abnormal. [facility] [employer] [id number] 07:51:00 Test Item Value Reference Range Interpretation Comments AST (test code = AST) 12 See_Comment [Auto mated message] The system which ge nerated this result transmit gaye reference range : <=37. The reference range was not used to interpr et this result as satish l/abnormal. [facility] [employer] [id number] 07:51:00 Test Item Value Reference Range Interpretation Comments eGFR (test code = eGFR) 93 [facility]2015-01-23 07:51:00 Test Item Value Reference Range Interpretation Comments Bili Total (test code = Bili Total) 0.3 0.2-1.3 [facility]2015-01-23 07:51:00 Test Item Value Reference Range Interpretation Comments Chloride Lvl (test code = Chloride Lvl) 108 95-109 [facility]2015-01-23 07:51:00 Test Item Value Reference Range Interpretation Comments Sodium Lvl (test code = Sodium Lvl) 138 135-145 [facility]2015-01-23 07:51:00 Test Item Value Reference Range Interpretation Comments Potassium Lvl (test code = Potassium 3.9 3.5-5.1 Lvl) [facility]2015-01-23 07:51:00 Test Item Value Reference Range Interpretation Comments CO2 (test code = CO2) 22 24-32 [facility]2015-01-23 07:51:00 Test Item Value Reference Range Interpretation Comments Calcium Lvl (test code = Calcium Lvl) 8.8 8.5-10.5 [facility]2015-01-23 07:51:00 Test Item Value Reference Range Interpretation Comments Glucose Lvl (test code = Glucose Lvl) 98 70-99 [facility]2015-01-23 07:51:00 Test Item Value Reference Range Interpretation Comments Total Protein (test code = Total 7.3 6.4-8.4 Protein) [facility]2015-01-23 07:51:00 Test Item Value Reference Range Interpretation Comments BUN (test code = BUN) 12 - [facility]2015-01-23 07:51:00 Test Item Value Reference Range Interpretation Comments Creatinine Lvl (test code = Creatinine 0.8 0.5-1.4 Lvl) [facility]2015-01-23 07:51:00 Test Item Value Reference Range Interpretation Comments AGAP (test code = AGAP) 11.9 10.0-20.0 [facility]2015-01-23 07:51:00 Test Item Value Reference Range Interpretation Comments B/C Ratio (test code = B/C Ratio) 15 [id number] 07:51[facility] Test Item Value Reference Range Interpretation Comments Globulin (test code = Globulin) 3.9 2.0-4.0 [facility] [id number] 07:51:00 Test Item Value Reference Range Interpretation Comments A/G Ratio (test code = A/G Ratio) 0.9 0.7-1.6 [facility]QTTBY1442-47-33 07:51:00 Test Item Value Reference Range Interpretation Comments hCG Tot (test code = hCG Tot) no gt [facility]LzakieoPGYTGXLQOO8777-69-59 07:51:00 Test Item Value Reference Range Interpretation Comments MCHC (test code = MCHC) 33.8 32.0-36.0 [facility] CenterAirdofvYZRYRLGWMW3488-52-29 07:51:00 Test Item Value Reference Range Interpretation Comments MCH (test code = MCH) 30.3 pg 27.0-31.0 [facility] CenterNqqipcpETTLJSPVYD9781-76-75 07:51:00 Test Item Value Reference Range Interpretation Comments RDW (test code = RDW) 13.0 11.5-14.5 [facility] CenterBeqhmotZEFBERLMKJ4361-40-44 07:51:00 Test Item Value Reference Range Interpretation Comments MPV (test code = MPV) 8.4 7.4-10.4 [facility] CenterFkedmrqFNMCXOJCMF4635-14-01 07:51:00 Test Item Value Reference Range Interpretation Comments Platelet (test code = Platelet) 356 133-450 [facility] CenterNtntzuiOSUGGHVSKF6931-01-92 07:51:00 Test Item Value Reference Range Interpretation Comments RBC (test code = RBC) 4.45 4.20-5.40 [facility] CenterQksnfvrUVECTISZHU3241-80-01 07:51:00 Test Item Value Reference Range Interpretation Comments WBC (test code = WBC) 12.9 3.7-10.4 [facility] CenterShnqjvjMYEGPGMHRS2118-42-90 07:51:00 Test Item Value Reference Range Interpretation Comments Hgb (test code = Hgb) 13.5 12.0-16.0 [facility] CenterWcdtvjhYRRZCBDJVW2241-90-18 07:51:00 Test Item Value Reference Range Interpretation Comments MCV (test code = MCV) 89.7 80.0-98.0 [facility] CenterJuufxhtXPFZVVDONQ6920-45-23 07:51:00 Test Item Value Reference Range Interpretation Comments Hct (test code = Hct) 39.9 36.0-48.0 [facility] CenterYtkpzmgXYKYNFITUP7752-02-42 07:51:00 Test Item Value Reference Range Interpretation Comments Eosinophils # (test code 0.3 See_Comment [A utomated message] The = Eosinophils #) system whic h generated this result tra nsmitted reference range : <=0.5. The reference r ozzy was not used to int erpret this result as normal/abnormal . [facility] CenterMpgszrvHTCMGSQEIX6138-09-24 07:51:00 Test Item Value Reference Range Interpretation Comments Lymphocytes # (test code = Lymphocytes 3.6 1.0-5.5 #) [facility] CenterPmardigFGYPLCASOW1769-63-25 07:51:00 Test Item Value Reference Range Interpretation Comments Monocytes # (test code 0.7 See_Comment [Aut omated message] The = Monocytes #) system which generated this result tra nsmitted reference range : <=0.8. The reference r ozzy was not used to int erpret this result as normal/abnormal . [facility] C[id number] 07:51:00 Test Item Value Reference Range Interpretation Comments Segs (test code = Segs) 63.9 45.0-75.0 [facility] CenterQmjylimXWVAGSSZWI9876-45-30 07:51:00 Test Item Value Reference Range Interpretation Comments Segs-Bands # (test code = Segs-Bands #) 8.2 1.5-8.1 [facility] CenterDfiobqlXWCXLMTJYH0875-52-30 07:51:00 Test Item Value Reference Range Interpretation Comments Basophils (test code = 0.7 See_Comment [Aut omated message] The Basophils) system which ge nerated this result tra nsmitted reference range : <=1.0. The reference r ozzy was not used to int erpret this result as normal/abnormal . [facility] CenterCwoxrhuUKDEOGQZJV9162-61-20 07:51:00 Test Item Value Reference Range Interpretation Comments Monocytes (test code = Monocytes) 5.4 2.0-12.0 [facility] CenterKhtfhyeVASSGMIVTP9445-19-84 07:51:00 Test Item Value Reference Range Interpretation Comments Eosinophils (test code = 2.3 See_Comment [A utomated message] The Eosinophils) system which ge nerated this result tra nsmitted reference range : <=4.0. The reference r ozzy was not used to int erpret this result as normal/abnormal . [facility] CenterVuzqrjlXJWVPOAWLT8150-72-85 07:51:00 Test Item Value Reference Range Interpretation Comments Lymphocytes (test code = Lymphocytes) 27.7 20.0-40.0 [facility] CenterAooqouyXMRVNIKNNP4942-36-99 07:51:00 Test Item Value Reference Range Interpretation Comments Basophils # (test code 0.1 See_Comment [Aut omated message] The = Basophils #) system which generated this result tra nsmitted reference range : <=0.2. The reference r ozzy was not used to int erpret this result as normal/abnormal . [facility] AND [id number] 07:51:00 Test Item Value Reference Range Interpretation Comments UA Urobilinogen (test code = UA 1.0 0.1-1.0 Urobilinogen) [facility] AND [id number] 07:51:00 Test Item Value Reference Range Interpretation Comments UA Turbidity (test code Cloudy *ABN*(09/04/14 = UA Turbidity) 1:51 AM) [facility] AND [id number] 07:51:00 Test Item Value Reference Range Interpretation Comments UA Color (test code = Red *ABN*(09/04/14 1:51 UA Color) AM) [facility] AND [id number] 07:51:00 Test Item Value Reference Range Interpretation Comments UA Ketones (test code Negative *NA*(09/04/14 = UA Ketones) 1:51 AM) [facility] AND [id number] 07:51:00 Test Item Value Reference Range Interpretation Comments UA Glucose (test code Negative (09/04/14 1:51 = UA Glucose) AM) [facility] AND [id number] 07:51:00 Test Item Value Reference Range Interpretation Comments UA Protein (test code = Trace *ABN*(09/04/14 UA Protein) 1:51 AM) [facility] AND [id number] 07:51:00 Test Item Value Reference Range Interpretation Comments UA pH (test code = UA pH) 8.0 1 5.0-8.0 [facility] AND [id number] 07:51:00 Test Item Value Reference Range Interpretation Comments UA Spec Grav (test code = UA Spec 1.015 1 Grav) [facility] AND [id number] 07:51:00 Test Item Value Reference Range Interpretation Comments UA Bili (test code = Negative *NA*(09/04/14 UA Bili) 1:51 AM) [facility] AND [id number] 07:51:00 Test Item Value Reference Range Interpretation Comments UA Blood (test code = Large *ABN*(09/04/14 UA Blood) 1:51 AM) [facility] AND [id number] 07:51:00 Test Item Value Reference Range Interpretation Comments UA Leuk Est (test Negative (09/04/14 1:51 code = UA Leuk Est) AM) [facility] AND [id number] 07:51:00 Test Item Value Reference Range Interpretation Comments UA Nitrite (test code Negative (09/04/14 1:51 = UA Nitrite) AM) [facility] AND [id number] 07:51:00 Test Item Value Reference Range Interpretation Comments UA Amorph Joselin (test code = UA Few /HPF Amorph Joselin) [facility] AND [id number] 07:51:00 Test Item Value Reference Range Interpretation Comments UA RBC (test code 51-100 /HPF See_Comment [Automate d message] The = UA RBC) system which ge nerated this result tra nsmitted reference range : <=2. The reference r ozzy was not used to int erpret this result as normal/abnormal . [facility] AND [id number] 07:51:00 Test Item Value Reference Range Interpretation Comments UA WBC (test code = UA WBC) 6-10 /HPF [facility] AND [id number] 07:51:00 Test Item Value Reference Range Interpretation Comments UA Bacteria (test code = UA Few /HPF Bacteria) [facility] AND [id number] 07:51:00 Test Item Value Reference Range Interpretation Comments UA Sq Epi (test code = UA Sq Occasional /LPF Epi) [facility] [employer] [id number] 07:51:00 Test Item Value Reference Range Interpretation Comments ABO/Rh (test code = ABO/Rh) A POS [facility] [employer] [id number] 07:51:00 Test Item Value Reference Range Interpretation Comments Antibody Scrn (test Negative (09/04/14 1:51 code = Antibody Scrn) AM) [facility]2015-01-23 07:51:00 Test Item Value Reference Range Interpretation Comments Albumin Lvl (test code = Albumin Lvl) 3.4 3.5-5.0 [facility]2015-01-23 07:51:00 Test Item Value Reference Range Interpretation Comments Alk Phos (test code = Alk Phos) 64 39-136 [facility]2015-01-23 07:51:00 Test Item Value Reference Range Interpretation Comments ALT (test code = ALT) 18 See_Comment [Auto mated message] The system which ge nerated this result transmit gaye reference range : <=65. The reference range was not used to interpr et this result as satish l/abnormal. [facility]2015-01-23 07:51:00 Test Item Value Reference Range Interpretation Comments AST (test code = AST) 12 See_Comment [Auto mated message] The system which ge nerated this result transmit gaye reference range : <=37. The reference range was not used to interpr et this result as satish l/abnormal. [facility]2015-01-23 07:51:00 Test Item Value Reference Range Interpretation Comments eGFR (test code = eGFR) 93 [facility]2015-01-23 07:51:00 Test Item Value Reference Range Interpretation Comments Bili Total (test code = Bili Total) 0.3 0.2-1.3 [facility]2015-01-23 07:51:00 Test Item Value Reference Range Interpretation Comments Chloride Lvl (test code = Chloride Lvl) 108 95-109 [facility]2015-01-23 07:51:00 Test Item Value Reference Range Interpretation Comments Sodium Lvl (test code = Sodium Lvl) 138 135-145 [facility]2015-01-23 07:51:00 Test Item Value Reference Range Interpretation Comments Potassium Lvl (test code = Potassium 3.9 3.5-5.1 Lvl) [facility]2015-01-23 07:51:00 Test Item Value Reference Range Interpretation Comments CO2 (test code = CO2) 22 24-32 [place] [id number] 07:51:00 Test Item Value Reference Range Interpretation Comments Calcium Lvl (test code = Calcium Lvl) 8.8 8.5-10.5 [facility]2015-01-23 07:51:00 Test Item Value Reference Range Interpretation Comments Glucose Lvl (test code = Glucose Lvl) 98 70-99 [facility]2015-01-23 07:51:00 Test Item Value Reference Range Interpretation Comments Total Protein (test code = Total 7.3 6.4-8.4 Protein) [facility]2015-01-23 07:51:00 Test Item Value Reference Range Interpretation Comments BUN (test code = BUN) 12 7-22 [facility]2015-01-23 07:51:00 Test Item Value Reference Range Interpretation Comments Creatinine Lvl (test code = Creatinine 0.8 0.5-1.4 Lvl) [facility]2015-01-23 07:51:00 Test Item Value Reference Range Interpretation Comments AGAP (test code = AGAP) 11.9 10.0-20.0 [facility]2015-01-23 07:51:00 Test Item Value Reference Range Interpretation Comments B/C Ratio (test code = B/C Ratio) 15 6-25 [facility]2015-01-23 07:51:00 Test Item Value Reference Range Interpretation Comments Globulin (test code = Globulin) 3.9 2.0-4.0 [facility]2015-01-23 07:51:00 Test Item Value Reference Range Interpretation Comments A/G Ratio (test code = A/G Ratio) 0.9 0.7-1.6 [facility]PD[facility]AV[facility]DRLM9549-47-05 07:51:00 Test Item Value Reference Range Interpretation Comments hCG Tot (test code = hCG Tot) no gt [facility]CXUCLAMNEK7027-79-93 07:51:00 Test Item Value Reference Range Interpretation Comments MCHC (test code = MCHC) 33.8 32.0-36.0 [facility]XtlgopcOSROPFZCKY4825-84-86 07:51:00 Test Item Value Reference Range Interpretation Comments MCH (test code = MCH) 30.3 pg 27.0-31.0 [facility] CenterVkfecalMXBAECEXHR0030-08-28 07:51:00 Test Item Value Reference Range Interpretation Comments RDW (test code = RDW) 13.0 11.5-14.5 [facility] CenterLvcspttCXAMQJTSFO6497-69-19 07:51:00 Test Item Value Reference Range Interpretation Comments MPV (test code = MPV) 8.4 7.4-10.4 [facility] CenterOdjhtmsCBJPICHCPW4948-41-08 07:51:00 Test Item Value Reference Range Interpretation Comments Platelet (test code = Platelet) 356 133-450 [facility] CenterSgtogftWVHVKYYSPP2393-99-28 07:51:00 Test Item Value Reference Range Interpretation Comments RBC (test code = RBC) 4.45 4.20-5.40 [facility] CenterNbjchygYWYLXNLGSS0578-01-72 07:51:00 Test Item Value Reference Range Interpretation Comments WBC (test code = WBC) 12.9 3.7-10.4 [facility] CenterHztlqelSMVIDPECJA8487-47-95 07:51:00 Test Item Value Reference Range Interpretation Comments Hgb (test code = Hgb) 13.5 12.0-16.0 [facility] CenterUydwqfeHCORPLXCHA8674-73-19 07:51:00 Test Item Value Reference Range Interpretation Comments MCV (test code = MCV) 89.7 80.0-98.0 [facility] CenterAgnrruuZFBVISJARL2766-37-00 07:51:00 Test Item Value Reference Range Interpretation Comments Hct (test code = Hct) 39.9 36.0-48.0 [facility] CenterHwbihisEBTFKXHKFN2229-88-86 07:51:00 Test Item Value Reference Range Interpretation Comments Eosinophils # (test code 0.3 See_Comment [A utomated message] The = Eosinophils #) system whic h generated this result tra nsmitted reference range : <=0.5. The reference r ozzy was not used to int erpret this result as normal/abnormal . [facility] CenterKrwuiffVOBDZHDEWR5972-91-96 07:51:00 Test Item Value Reference Range Interpretation Comments Lymphocytes # (test code = Lymphocytes 3.6 1.0-5.5 #) [facility] CenterQvbhxvcPZFBFEDQXI1968-43-69 07:51:00 Test Item Value Reference Range Interpretation Comments Monocytes # (test code 0.7 See_Comment [Aut omated message] The = Monocytes #) system which generated this result tra nsmitted reference range : <=0.8. The reference r ozzy was not used to int erpret this result as normal/abnormal . [facility] CenterAmlhkrmVXUHAZDZTA1146-03-84 07:51:00 Test Item Value Reference Range Interpretation Comments Segs (test code = Segs) 63.9 45.0-75.0 [facility] CenterDflcbiwWNRIGFYTSB1923-73-28 07:51:00 Test Item Value Reference Range Interpretation Comments Segs-Bands # (test code = Segs-Bands #) 8.2 1.5-8.1 [facility] CenterDzzjudsBCOOBTUBWM2967-64-35 07:51:00 Test Item Value Reference Range Interpretation Comments Basophils (test code = 0.7 See_Comment [Aut omated message] The Basophils) system which ge nerated this result tra nsmitted reference range : <=1.0. The reference r ozzy was not used to int erpret this result as normal/abnormal . [facility] CenterZumlfnhTOBPPTKWVK4967-60-32 07:51:00 Test Item Value Reference Range Interpretation Comments Monocytes (test code = Monocytes) 5.4 2.0-12.0 [facility] CenterWwxhwapVRHOXBUGTU5595-90-13 07:51:00 Test Item Value Reference Range Interpretation Comments Eosinophils (test code = 2.3 See_Comment [A utomated message] The Eosinophils) system which ge nerated this result tra nsmitted reference range : <=4.0. The reference r ozzy was not used to int erpret this result as normal/abnormal . [facility] CenterMjbshemWOHXYNAGXD8173-05-29 07:51:00 Test Item Value Reference Range Interpretation Comments Lymphocytes (test code = Lymphocytes) 27.7 20.0-40.0 [facility] CenterStatemtCDOSHJTLOQ5412-82-11 07:51:00 Test Item Value Reference Range Interpretation Comments Basophils # (test code 0.1 See_Comment [Aut omated message] The = Basophils #) system which generated this result tra nsmitted reference range : <=0.2. The reference r ozzy was not used to int erpret this result as normal/abnormal . [facility]2015-01-23 07:51:00 Test Item Value Reference Range Interpretation Comments UA Urobilinogen (test code = UA 1.0 0.1-1.0 Urobilinogen) [facility]2015-01-23 07:51:00 Test Item Value Reference Range Interpretation Comments UA Turbidity (test code Cloudy *ABN*(09/04/14 = UA Turbidity) 1:51 AM) [facility] AND [id number] 07:51:00 Test Item Value Reference Range Interpretation Comments UA Color (test code = Red *ABN*(09/04/14 1:51 UA Color) AM) [facility] AND [id number] 07:51:00 Test Item Value Reference Range Interpretation Comments UA Ketones (test code Negative *NA*(09/04/14 = UA Ketones) 1:51 AM) [facility] AND [id number] 07:51:00 Test Item Value Reference Range Interpretation Comments UA Glucose (test code Negative (09/04/14 1:51 = UA Glucose) AM) [facility] AND [id number] 07:51:00 Test Item Value Reference Range Interpretation Comments UA Protein (test code = Trace *ABN*(09/04/14 UA Protein) 1:51 AM) [facility] AND [id number] 07:51:00 Test Item Value Reference Range Interpretation Comments UA pH (test code = UA pH) 8.0 1 5.0-8.0 [facility] AND [id number] 07:51:00 Test Item Value Reference Range Interpretation Comments UA Spec Grav (test code = UA Spec 1.015 1 Grav) [facility] AND [id number] 07:51:00 Test Item Value Reference Range Interpretation Comments UA Bili (test code = Negative *NA*(09/04/14 UA Bili) 1:51 AM) [facility] AND [id number] 07:51:00 Test Item Value Reference Range Interpretation Comments UA Blood (test code = Large *ABN*(09/04/14 UA Blood) 1:51 AM) [facility] AND [id number] 07:51:00 Test Item Value Reference Range Interpretation Comments UA Leuk Est (test Negative (09/04/14 1:51 code = UA Leuk Est) AM) [facility] AND [id number] 07:51:00 Test Item Value Reference Range Interpretation Comments UA Nitrite (test code Negative (09/04/14 1:51 = UA Nitrite) AM) [facility] AND [id number] 07:51:00 Test Item Value Reference Range Interpretation Comments UA Amorph Joselin (test code = UA Few /HPF Amorph Joselin) [facility] [id number] 07:51:00 Test Item Value Reference Range Interpretation Comments UA RBC (test code 51-100 /HPF See_Comment [Automate d message] The = UA RBC) system which ge nerated this result tra nsmitted reference range : <=2. The reference r ozzy was not used to int erpret this result as normal/abnormal . [facility] [id number] 07:51:00 Test Item Value Reference Range Interpretation Comments UA WBC (test code = UA WBC) 6-10 /HPF [facility] AND [id number] 07:51:00 Test Item Value Reference Range Interpretation Comments UA Bacteria (test code = UA Few /HPF Bacteria) [facility] AND [id number] 07:51:00 Test Item Value Reference Range Interpretation Comments UA Sq Epi (test code = UA Sq Occasional /LPF Epi) [facility] [employer] [id number] 07:51:00 Test Item Value Reference Range Interpretation Comments ABO/Rh (test code = ABO/Rh) A POS [facility] [employer] [id number] 07:51:00 Test Item Value Reference Range Interpretation Comments Antibody Scrn (test Negative (09/04/14 1:51 code = Antibody Scrn) AM) [facility] [employer] [id number] 07:51:00 Test Item Value Reference Range Interpretation Comments Albumin Lvl (test code = Albumin Lvl) 3.4 3.5-5.0 [facility] [employer] [id number] 07:51:00 Test Item Value Reference Range Interpretation Comments Alk Phos (test code = Alk Phos) 64 39-136 [facility] [employer] [id number] 07:51:00 Test Item Value Reference Range Interpretation Comments ALT (test code = ALT) 18 See_Comment [Auto mated message] The system which ge nerated this result transmit gaye reference range : <=65. The reference range was not used to interpr et this result as satish l/abnormal. [place] [id number] 07:51:00 Test Item Value Reference Range Interpretation Comments AST (test code = AST) 12 See_Comment [Auto mated message] The system which ge nerated this result transmit gaye reference range : <=37. The reference range was not used to interpr et this result as satish l/abnormal. [facility]2015-01-23 07:51:00 Test Item Value Reference Range Interpretation Comments eGFR (test code = eGFR) 93 [facility]2015-01-23 07:51:00 Test Item Value Reference Range Interpretation Comments Bili Total (test code = Bili Total) 0.3 0.2-1.3 [facility]2015-01-23 07:51:00 Test Item Value Reference Range Interpretation Comments Chloride Lvl (test code = Chloride Lvl) 108 95-109 [facility]2015-01-23 07:51:00 Test Item Value Reference Range Interpretation Comments Sodium Lvl (test code = Sodium Lvl) 138 135-145 [facility]2015-01-23 07:51:00 Test Item Value Reference Range Interpretation Comments Potassium Lvl (test code = Potassium 3.9 3.5-5.1 Lvl) [facility]2015-01-23 07:51:00 Test Item Value Reference Range Interpretation Comments CO2 (test code = CO2) 22 24-32 [facility]2015-01-23 07:51:00 Test Item Value Reference Range Interpretation Comments Calcium Lvl (test code = Calcium Lvl) 8.8 8.5-10.5 [facility]2015-01-23 07:51:00 Test Item Value Reference Range Interpretation Comments Glucose Lvl (test code = Glucose Lvl) 98 70-99 [facility]2015-01-23 07:51:00 Test Item Value Reference Range Interpretation Comments Total Protein (test code = Total 7.3 6.4-8.4 Protein) [facility]2015-01-23 07:51:00 Test Item Value Reference Range Interpretation Comments BUN (test code = BUN) 12 - [facility]2015-01-23 07:51:00 Test Item Value Reference Range Interpretation Comments Creatinine Lvl (test code = Creatinine 0.8 0.5-1.4 Lvl) [facility]2015-01-23 07:51:00 Test Item Value Reference Range Interpretation Comments AGAP (test code = AGAP) 11.9 10.0-20.0 [facility]2015-01-23 07:51:00 Test Item Value Reference Range Interpretation Comments B/C Ratio (test code = B/C Ratio) 15 6-25 [facility]2015-01-23 07:51:00 Test Item Value Reference Range Interpretation Comments Globulin (test code = Globulin) 3.9 2.0-4.0 [facility]2015-01-23 07:51:00 Test Item Value Reference Range Interpretation Comments A/G Ratio (test code = A/G Ratio) 0.9 0.7-1.6 [facility]qpoowuASFBSUSGJPCUW9804-62-62 07:51:00 Test Item Value Reference Range Interpretation Comments hCG Tot (test code = hCG Tot) no gt [facility]QikllluVDUIXXZDIA3273 07:51:00 Test Item Value Reference Range Interpretation Comments MCHC (test code = MCHC) 33.8 32.0-36.0 [facility]YhxkpodDYHPIWSTYB7744-31-38 07:51:00 Test Item Value Reference Range Interpretation Comments MCH (test code = MCH) 30.3 pg 27.0-31.0 [facility]XicrbezVXOFVQZOUH1955-24-12 07:51:00 Test Item Value Reference Range Interpretation Comments RDW (test code = RDW) 13.0 11.5-14.5 [facility]QzinftjUGKLBHGHBU7822-69-30 07:51:00 Test Item Value Reference Range Interpretation Comments MPV (test code = MPV) 8.4 7.4-10.4 [facility] CenterNsqrkkhBQPAMGYCRM9193-41-04 07:51:00 Test Item Value Reference Range Interpretation Comments Platelet (test code = Platelet) 356 133-450 [facility] CenterSxvkghvUKQMPXWGZC5776-41-78 07:51:00 Test Item Value Reference Range Interpretation Comments RBC (test code = RBC) 4.45 4.20-5.40 [facility] CenterVgbcoapPXXQUCFZGL2972-05-10 07:51:00 Test Item Value Reference Range Interpretation Comments WBC (test code = WBC) 12.9 3.7-10.4 [facility] CenterXyysoseLTOWQQFQWG6535-56-97 07:51:00 Test Item Value Reference Range Interpretation Comments Hgb (test code = Hgb) 13.5 12.0-16.0 [facility] CenterIfehfsjROSWUHDGCY9181-51-36 07:51:00 Test Item Value Reference Range Interpretation Comments MCV (test code = MCV) 89.7 80.0-98.0 [facility] CenterCzbmknhEXVWFBIWWN4236-31-67 07:51:00 Test Item Value Reference Range Interpretation Comments Hct (test code = Hct) 39.9 36.0-48.0 [facility] CenterQrcshhgRGHZDPXUHU4402-61-90 07:51:00 Test Item Value Reference Range Interpretation Comments Eosinophils # (test code 0.3 See_Comment [A utomated message] The = Eosinophils #) system whic h generated this result tra nsmitted reference range : <=0.5. The reference r ozzy was not used to int erpret this result as normal/abnormal . [facility] CenterUyeggtuMSHQGXWLWF6503-91-39 07:51:00 Test Item Value Reference Range Interpretation Comments Lymphocytes # (test code = Lymphocytes 3.6 1.0-5.5 #) [facility] CenterNaghfeiIMCMFZEDGT7485-26-07 07:51:00 Test Item Value Reference Range Interpretation Comments Monocytes # (test code 0.7 See_Comment [Aut omated message] The = Monocytes #) system which generated this result tra nsmitted reference range : <=0.8. The reference r ozzy was not used to int erpret this result as normal/abnormal . [facility] CenterOdushxuZXOOBAFFQH1780-97-87 07:51:00 Test Item Value Reference Range Interpretation Comments Segs (test code = Segs) 63.9 45.0-75.0 [facility] CenterMqghhtgFUMIDSVHYB1490-14-66 07:51:00 Test Item Value Reference Range Interpretation Comments Segs-Bands # (test code = Segs-Bands #) 8.2 1.5-8.1 [facility] CenterNtayrtvWZFKKRBXHG6952-09-69 07:51:00 Test Item Value Reference Range Interpretation Comments Basophils (test code = 0.7 See_Comment [Aut omated message] The Basophils) system which ge nerated this result tra nsmitted reference range : <=1.0. The reference r ozzy was not used to int erpret this result as normal/abnormal . [facility] CenterVshrwyoNHVPYUJSUW0392-28-45 07:51:00 Test Item Value Reference Range Interpretation Comments Monocytes (test code = Monocytes) 5.4 2.0-12.0 [facility] CenterUkfmeawLHMOSFJGDT7020-07-69 07:51:00 Test Item Value Reference Range Interpretation Comments Eosinophils (test code = 2.3 See_Comment [A utomated message] The Eosinophils) system which ge nerated this result tra nsmitted reference range : <=4.0. The reference r ozzy was not used to int erpret this result as normal/abnormal . [facility] CenterEtcrnmbVFKAQZAVVO7405-29-71 07:51:00 Test Item Value Reference Range Interpretation Comments Lymphocytes (test code = Lymphocytes) 27.7 20.0-40.0 [facility] CenterXbzhtmaTVOADDBCLW7407-97-22 07:51:00 Test Item Value Reference Range Interpretation Comments Basophils # (test code 0.1 See_Comment [Aut omated message] The = Basophils #) system which generated this result tra nsmitted reference range : <=0.2. The reference r ozzy was not used to int erpret this result as normal/abnormal . [facility] AND [id number] 07:51:00 Test Item Value Reference Range Interpretation Comments UA Urobilinogen (test code = UA 1.0 0.1-1.0 Urobilinogen) [facility] AND [id number] 07:51:00 Test Item Value Reference Range Interpretation Comments UA Turbidity (test code Cloudy *ABN*(09/04/14 = UA Turbidity) 1:51 AM) [facility] AND [id number] 07:51:00 Test Item Value Reference Range Interpretation Comments UA Color (test code = Red *ABN*(09/04/14 1:51 UA Color) AM) [facility] AND [id number] 07:51:00 Test Item Value Reference Range Interpretation Comments UA Ketones (test code Negative *NA*(09/04/14 = UA Ketones) 1:51 AM) [facility] AND [id number] 07:51:00 Test Item Value Reference Range Interpretation Comments UA Glucose (test code Negative (09/04/14 1:51 = UA Glucose) AM) [facility] AND [id number] 07:51:00 Test Item Value Reference Range Interpretation Comments UA Protein (test code = Trace *ABN*(09/04/14 UA Protein) 1:51 AM) [facility] AND [id number] 07:51:00 Test Item Value Reference Range Interpretation Comments UA pH (test code = UA pH) 8.0 1 5.0-8.0 [facility] AND [id number] 07:51:00 Test Item Value Reference Range Interpretation Comments UA Spec Grav (test code = UA Spec 1.015 1 Grav) [facility] AND [id number] 07:51:00 Test Item Value Reference Range Interpretation Comments UA Bili (test code = Negative *NA*(09/04/14 UA Bili) 1:51 AM) [facility] AND [id number] 07:51:00 Test Item Value Reference Range Interpretation Comments UA Blood (test code = Large *ABN*(09/04/14 UA Blood) 1:51 AM) [facility] AND [id number] 07:51:00 Test Item Value Reference Range Interpretation Comments UA Leuk Est (test Negative (09/04/14 1:51 code = UA Leuk Est) AM) [facility] AND [id number] 07:51:00 Test Item Value Reference Range Interpretation Comments UA Nitrite (test code Negative (09/04/14 1:51 = UA Nitrite) AM) [facility] AND [id number] 07:51:00 Test Item Value Reference Range Interpretation Comments UA Amorph Joselin (test code = UA Few /HPF Amorph Joselin) [facility] AND [id number] 07:51:00 Test Item Value Reference Range Interpretation Comments UA RBC (test code 51-100 /HPF See_Comment [Automate d message] The = UA RBC) system which ge nerated this result tra nsmitted reference range : <=2. The reference r ozzy was not used to int erpret this result as normal/abnormal . [facility] AND [id number] 07:51:00 Test Item Value Reference Range Interpretation Comments UA WBC (test code = UA WBC) 6-10 /HPF [facility] AND [id number] 07:51:00 Test Item Value Reference Range Interpretation Comments UA Bacteria (test code = UA Few /HPF Bacteria) [facility] AND [id number] 07:51:00 Test Item Value Reference Range Interpretation Comments UA Sq Epi (test code = UA Sq Occasional /LPF Epi) [facility] [employer] [id number] 07:51:00 Test Item Value Reference Range Interpretation Comments ABO/Rh (test code = ABO/Rh) A POS [facility] [employer] [id number] 07:51:00 Test Item Value Reference Range Interpretation Comments Antibody Scrn (test Negative (09/04/14 1:51 code = Antibody Scrn) AM) [facility] [employer] [id number] 07:51:00 Test Item Value Reference Range Interpretation Comments Albumin Lvl (test code = Albumin Lvl) 3.4 3.5-5.0 [facility] [employer] [id number] 07:51:00 Test Item Value Reference Range Interpretation Comments Alk Phos (test code = Alk Phos) 64 39-136 [facility] [employer] [id number] 07:51:00 Test Item Value Reference Range Interpretation Comments ALT (test code = ALT) 18 See_Comment [Auto mated message] The system which ge nerated this result transmit gaye reference range : <=65. The reference range was not used to interpr et this result as satish l/abnormal. [facility] [employer] [id number] 07:51:00 Test Item Value Reference Range Interpretation Comments AST (test code = AST) 12 See_Comment [Auto mated message] The system which ge nerated this result transmit gaye reference range : <=37. The reference range was not used to interpr et this result as satish l/abnormal. [facility] [employer] [id number] 07:51:00 Test Item Value Reference Range Interpretation Comments eGFR (test code = eGFR) 93 [facility] [employer] [id number] 07:51:00 Test Item Value Reference Range Interpretation Comments Bili Total (test code = Bili Total) 0.3 0.2-1.3 [facility] [employer] [id number] 07:51:00 Test Item Value Reference Range Interpretation Comments Chloride Lvl (test code = Chloride Lvl) 108 95-109 [facility] [id number] 07:51:00 Test Item Value Reference Range Interpretation Comments Sodium Lvl (test code = Sodium Lvl) 138 135-145 [facility] [employer] [id number] 07:51:00 Test Item Value Reference Range Interpretation Comments Potassium Lvl (test code = Potassium 3.9 3.5-5.1 Lvl) [facility]2015-01-23 07:51:00 Test Item Value Reference Range Interpretation Comments CO2 (test code = CO2) 22 24-32 [facility]2015-01-23 07:51:00 Test Item Value Reference Range Interpretation Comments Calcium Lvl (test code = Calcium Lvl) 8.8 8.5-10.5 [facility]2015-01-23 07:51:00 Test Item Value Reference Range Interpretation Comments Glucose Lvl (test code = Glucose Lvl) 98 70-99 [facility]2015-01-23 07:51:00 Test Item Value Reference Range Interpretation Comments Total Protein (test code = Total 7.3 6.4-8.4 Protein) [facility]2015-01-23 07:51:00 Test Item Value Reference Range Interpretation Comments BUN (test code = BUN) 12 7- [facility]2015-01-23 07:51:00 Test Item Value Reference Range Interpretation Comments Creatinine Lvl (test code = Creatinine 0.8 0.5-1.4 Lvl) [facility]2015-01-23 07:51:00 Test Item Value Reference Range Interpretation Comments AGAP (test code = AGAP) 11.9 10.0-20.0 [facility]2015-01-23 07:51:00 Test Item Value Reference Range Interpretation Comments B/C Ratio (test code = B/C Ratio) 15 6-25 [facility]2015-01-23 07:51:00 Test Item Value Reference Range Interpretation Comments Globulin (test code = Globulin) 3.9 2.0-4.0 [facility]2015-01-23 07:51:00 Test Item Value Reference Range Interpretation Comments A/G Ratio (test code = A/G Ratio) 0.9 0.7-1.6 [id number] 07:51:00 Test Item Value Reference Range Interpretation Comments hCG Tot (test code = hCG Tot) no gt [facility]ZpmugtwLRIKPRZJFJ0723-86-93 07:51:00 Test Item Value Reference Range Interpretation Comments MCHC (test code = MCHC) 33.8 32.0-36.0 [facility]EpyfbkeDQULTJYONM0046-56-15 07:51:00 Test Item Value Reference Range Interpretation Comments MCH (test code = MCH) 30.3 pg 27.0-31.0 [facility] CenterZhwpgayQUVWSOOAOT3977-57-82 07:51:00 Test Item Value Reference Range Interpretation Comments RDW (test code = RDW) 13.0 11.5-14.5 [facility] CenterZxibylgJAGFZLXZGU6326-32-29 07:51:00 Test Item Value Reference Range Interpretation Comments MPV (test code = MPV) 8.4 7.4-10.4 [place] [id number] 07:51:00 Test Item Value Reference Range Interpretation Comments Platelet (test code = Platelet) 356 133-450 [facility] CenterPzirdvpGCPZEFLBAQ4262-70-58 07:51:00 Test Item Value Reference Range Interpretation Comments RBC (test code = RBC) 4.45 4.20-5.40 [facility] CenterYbgdtgsVLTWVKDYAO4002-68-46 07:51:00 Test Item Value Reference Range Interpretation Comments WBC (test code = WBC) 12.9 3.7-10.4 [facility] CenterPvwvvdlNNQTXCGDZP8585-94-28 07:51:00 Test Item Value Reference Range Interpretation Comments Hgb (test code = Hgb) 13.5 12.0-16.0 [facility] CenterLalspprRUXBYERVAX1958-55-02 07:51:00 Test Item Value Reference Range Interpretation Comments MCV (test code = MCV) 89.7 80.0-98.0 [facility] CenterYlobktzBWZZCWFGOE0145-42-23 07:51:00 Test Item Value Reference Range Interpretation Comments Hct (test code = Hct) 39.9 36.0-48.0 [facility] CenterCxtgtcrLJONBWFYTU5508-70-09 07:51:00 Test Item Value Reference Range Interpretation Comments Eosinophils # (test code 0.3 See_Comment [A utomated message] The = Eosinophils #) system whic h generated this result tra nsmitted reference range : <=0.5. The reference r ozzy was not used to int erpret this result as normal/abnormal . [facility] CenterHaagcopXRWUNTUGFX1396-18-87 07:51:00 Test Item Value Reference Range Interpretation Comments Lymphocytes # (test code = Lymphocytes 3.6 1.0-5.5 #) [facility] CenterAiblbafJWPOESBXEA1534-95-47 07:51:00 Test Item Value Reference Range Interpretation Comments Monocytes # (test code 0.7 See_Comment [Aut omated message] The = Monocytes #) system which generated this result tra nsmitted reference range : <=0.8. The reference r ozzy was not used to int erpret this result as normal/abnormal . [facility] CenterOtnfmtpQQZICQARKJ5948-45-72 07:51:00 Test Item Value Reference Range Interpretation Comments Segs (test code = Segs) 63.9 45.0-75.0 [facility] CenterAwesdnlROVEOCZNMB4791-01-85 07:51:00 Test Item Value Reference Range Interpretation Comments Segs-Bands # (test code = Segs-Bands #) 8.2 1.5-8.1 [facility] CenterWnfqctsQXHVXRLLXE8928-08-18 07:51:00 Test Item Value Reference Range Interpretation Comments Basophils (test code = 0.7 See_Comment [Aut omated message] The Basophils) system which ge nerated this result tra nsmitted reference range : <=1.0. The reference r ozzy was not used to int erpret this result as normal/abnormal . [facility] CenterSemfqpjALYZUFCVFI4669-19-71 07:51:00 Test Item Value Reference Range Interpretation Comments Monocytes (test code = Monocytes) 5.4 2.0-12.0 [facility] CenterCugfkhjFJAYZDYHBF5546-87-02 07:51:00 Test Item Value Reference Range Interpretation Comments Eosinophils (test code = 2.3 See_Comment [A utomated message] The Eosinophils) system which ge nerated this result tra nsmitted reference range : <=4.0. The reference r ozzy was not used to int erpret this result as normal/abnormal . [facility] CenterZthioppKOSVBAUVOL7982-34-48 07:51:00 Test Item Value Reference Range Interpretation Comments Lymphocytes (test code = Lymphocytes) 27.7 20.0-40.0 [facility] CenterRckdanvAFBUNKOHHQ2982-32-86 07:51:00 Test Item Value Reference Range Interpretation Comments Basophils # (test code 0.1 See_Comment [Aut omated message] The = Basophils #) system which generated this result tra nsmitted reference range : <=0.2. The reference r ozzy was not used to int erpret this result as normal/abnormal . [facility]2015-01-23 07:51:00 Test Item Value Reference Range Interpretation Comments UA Urobilinogen (test code = UA 1.0 0.1-1.0 Urobilinogen) [facility] AND [id number] 07:51:00 Test Item Value Reference Range Interpretation Comments UA Turbidity (test code Cloudy *ABN*(09/04/14 = UA Turbidity) 1:51 AM) [facility] AND [id number] 07:51:00 Test Item Value Reference Range Interpretation Comments UA Color (test code = Red *ABN*(09/04/14 1:51 UA Color) AM) [facility] AND [id number] 07:51:00 Test Item Value Reference Range Interpretation Comments UA Ketones (test code Negative *NA*(09/04/14 = UA Ketones) 1:51 AM) [facility] AND [id number] 07:51:00 Test Item Value Reference Range Interpretation Comments UA Glucose (test code Negative (09/04/14 1:51 = UA Glucose) AM) [facility] AND [id number] 07:51:00 Test Item Value Reference Range Interpretation Comments UA Protein (test code = Trace *ABN*(09/04/14 UA Protein) 1:51 AM) [facility] AND [id number] 07:51:00 Test Item Value Reference Range Interpretation Comments UA pH (test code = UA pH) 8.0 1 5.0-8.0 [facility] AND [id number] 07:51:00 Test Item Value Reference Range Interpretation Comments UA Spec Grav (test code = UA Spec 1.015 1 Grav) [facility] AND [id number] 07:51:00 Test Item Value Reference Range Interpretation Comments UA Bili (test code = Negative *NA*(09/04/14 UA Bili) 1:51 AM) [facility] AND [id number] 07:51:00 Test Item Value Reference Range Interpretation Comments UA Blood (test code = Large *ABN*(09/04/14 UA Blood) 1:51 AM) [facility] AND [id number] 07:51:00 Test Item Value Reference Range Interpretation Comments UA Leuk Est (test Negative (09/04/14 1:51 code = UA Leuk Est) AM) [facility] AND [id number] 07:51:00 Test Item Value Reference Range Interpretation Comments UA Nitrite (test code Negative (09/04/14 1:51 = UA Nitrite) AM) [facility] AND [id number] 07:51:00 Test Item Value Reference Range Interpretation Comments UA Amorph Joselin (test code = UA Few /HPF Amorph Joselin) [facility] AND [id number] 07:51:00 Test Item Value Reference Range Interpretation Comments UA RBC (test code 51-100 /HPF See_Comment [Automate d message] The = UA RBC) system which ge nerated this result tra nsmitted reference range : <=2. The reference r ozzy was not used to int erpret this result as normal/abnormal . [facility] AND [id number] 07:51:00 Test Item Value Reference Range Interpretation Comments UA WBC (test code = UA WBC) 6-10 /HPF [facility] AND [id number] 07:51:00 Test Item Value Reference Range Interpretation Comments UA Bacteria (test code = UA Few /HPF Bacteria) [facility] AND [id number] 07:51:00 Test Item Value Reference Range Interpretation Comments UA Sq Epi (test code = UA Sq Occasional /LPF Epi) [facility] [employer] [id number] 07:51:00 Test Item Value Reference Range Interpretation Comments ABO/Rh (test code = ABO/Rh) A POS [facility] [employer] [id number] 07:51:00 Test Item Value Reference Range Interpretation Comments Antibody Scrn (test Negative (09/04/14 1:51 code = Antibody Scrn) AM) [facility] [employer] [id number] 07:51:00 Test Item Value Reference Range Interpretation Comments Albumin Lvl (test code = Albumin Lvl) 3.4 3.5-5.0 [facility] [id number] 07:51:00 Test Item Value Reference Range Interpretation Comments Alk Phos (test code = Alk Phos) 64 39-136 [facility] [id number] 07:51:00 Test Item Value Reference Range Interpretation Comments ALT (test code = ALT) 18 See_Comment [Auto mated message] The system which ge nerated this result transmit gaye reference range : <=65. The reference range was not used to interpr et this result as satish l/abnormal. [facility]2015-01-23 07:51:00 Test Item Value Reference Range Interpretation Comments AST (test code = AST) 12 See_Comment [Auto mated message] The system which ge nerated this result transmit gaye reference range : <=37. The reference range was not used to interpr et this result as satish l/abnormal. [facility]2015-01-23 07:51:00 Test Item Value Reference Range Interpretation Comments eGFR (test code = eGFR) 93 [facility]2015-01-23 07:51:00 Test Item Value Reference Range Interpretation Comments Bili Total (test code = Bili Total) 0.3 0.2-1.3 [facility]2015-01-23 07:51:00 Test Item Value Reference Range Interpretation Comments Chloride Lvl (test code = Chloride Lvl) 108 95-109 [facility]2015-01-23 07:51:00 Test Item Value Reference Range Interpretation Comments Sodium Lvl (test code = Sodium Lvl) 138 135-145 [facility]2015-01-23 07:51:00 Test Item Value Reference Range Interpretation Comments Potassium Lvl (test code = Potassium 3.9 3.5-5.1 Lvl) [facility]2015-01-23 07:51:00 Test Item Value Reference Range Interpretation Comments CO2 (test code = CO2) 22 24-32 [facility]2015-01-23 07:51:00 Test Item Value Reference Range Interpretation Comments Calcium Lvl (test code = Calcium Lvl) 8.8 8.5-10.5 [facility]2015-01-23 07:51:00 Test Item Value Reference Range Interpretation Comments Glucose Lvl (test code = Glucose Lvl) 98 70-99 [facility]2015-01-23 07:51:00 Test Item Value Reference Range Interpretation Comments Total Protein (test code = Total 7.3 6.4-8.4 Protein) [facility]2015-01-23 07:51:00 Test Item Value Reference Range Interpretation Comments BUN (test code = BUN) 12 7-22 [facility]2015-01-23 07:51:00 Test Item Value Reference Range Interpretation Comments Creatinine Lvl (test code = Creatinine 0.8 0.5-1.4 Lvl) [facility]2015-01-23 07:51:00 Test Item Value Reference Range Interpretation Comments AGAP (test code = AGAP) 11.9 10.0-20.0 [facility]2015-01-23 07:51:00 Test Item Value Reference Range Interpretation Comments B/C Ratio (test code = B/C Ratio) 15 6-25 [facility]2015-01-23 07:51:00 Test Item Value Reference Range Interpretation Comments Globulin (test code = Globulin) 3.9 2.0-4.0 [facility]2015-01-23 07:51:00 Test Item Value Reference Range Interpretation Comments A/G Ratio (test code = A/G Ratio) 0.9 0.7-1.6 [id number] 07:51:00 Test Item Value Reference Range Interpretation Comments hCG Tot (test code = hCG Tot) no gt [facility]QlzyycuJGOAWHARTN8742-17-74 07:51:00 Test Item Value Reference Range Interpretation Comments MCHC (test code = MCHC) 33.8 32.0-36.0 [facility] CenterImweubqXWSTZAJBYZ1502-81-82 07:51:00 Test Item Value Reference Range Interpretation Comments MCH (test code = MCH) 30.3 pg 27.0-31.0 [facility] CenterMdhpxfxPNYLLLOGRK2183-91-39 07:51:00 Test Item Value Reference Range Interpretation Comments RDW (test code = RDW) 13.0 11.5-14.5 [facility] CenterGgeuacdRSNFKXBEID6195-68-46 07:51:00 Test Item Value Reference Range Interpretation Comments MPV (test code = MPV) 8.4 7.4-10.4 [facility] CenterOoljqcfDQRJAJEDWY9214-55-38 07:51:00 Test Item Value Reference Range Interpretation Comments Platelet (test code = Platelet) 356 133-450 [facility] CenterBnwahofNECDHBHHGH8438-94-93 07:51:00 Test Item Value Reference Range Interpretation Comments RBC (test code = RBC) 4.45 4.20-5.40 [facility] CenterWegzpbmLZCQUYDESA7575-97-65 07:51:00 Test Item Value Reference Range Interpretation Comments WBC (test code = WBC) 12.9 3.7-10.4 [facility] CenterKclpfygUACXWTZREA8358-34-27 07:51:00 Test Item Value Reference Range Interpretation Comments Hgb (test code = Hgb) 13.5 12.0-16.0 [facility] CenterXyvaziiZPQAGOBOIN9555-94-01 07:51:00 Test Item Value Reference Range Interpretation Comments MCV (test code = MCV) 89.7 80.0-98.0 [facility] CenterWuhvnztCNRFSHAQGN7898-42-21 07:51:00 Test Item Value Reference Range Interpretation Comments Hct (test code = Hct) 39.9 36.0-48.0 [facility] CenterRmnaztjAVTPIKHFPZ2136-60-39 07:51:00 Test Item Value Reference Range Interpretation Comments Eosinophils # (test code 0.3 See_Comment [A utomated message] The = Eosinophils #) system whic h generated this result tra nsmitted reference range : <=0.5. The reference r ozzy was not used to int erpret this result as normal/abnormal . [facility] CenterUbzajtzPTQWXMLRCB6534-18-89 07:51:00 Test Item Value Reference Range Interpretation Comments Lymphocytes # (test code = Lymphocytes 3.6 1.0-5.5 #) [facility] CenterUlutaqaUOVLAFGXJT4690-51-97 07:51:00 Test Item Value Reference Range Interpretation Comments Monocytes # (test code 0.7 See_Comment [Aut omated message] The = Monocytes #) system which generated this result tra nsmitted reference range : <=0.8. The reference r ozzy was not used to int erpret this result as normal/abnormal . [facility] CenterVmsiudwCHWFXPDOEB4066-08-92 07:51:00 Test Item Value Reference Range Interpretation Comments Segs (test code = Segs) 63.9 45.0-75.0 [facility] CenterRrgdoknCKSEIBSZUJ7701-47-22 07:51:00 Test Item Value Reference Range Interpretation Comments Segs-Bands # (test code = Segs-Bands #) 8.2 1.5-8.1 [facility] CenterSkfltkbUDWPEADQAU7745-13-34 07:51:00 Test Item Value Reference Range Interpretation Comments Basophils (test code = 0.7 See_Comment [Aut omated message] The Basophils) system which ge nerated this result tra nsmitted reference range : <=1.0. The reference r ozzy was not used to int erpret this result as normal/abnormal . [facility] CenterIcullxyXPVGBVZIFZ6649-90-00 07:51:00 Test Item Value Reference Range Interpretation Comments Monocytes (test code = Monocytes) 5.4 2.0-12.0 [facility] CenterBbivgmoTOCHLIVDDE0496-56-12 07:51:00 Test Item Value Reference Range Interpretation Comments Eosinophils (test code = 2.3 See_Comment [A utomated message] The Eosinophils) system which ge nerated this result tra nsmitted reference range : <=4.0. The reference r ozzy was not used to int erpret this result as normal/abnormal . [facility] CenterRggdbjjDICMAOXVRV0508-36-56 07:51:00 Test Item Value Reference Range Interpretation Comments Lymphocytes (test code = Lymphocytes) 27.7 20.0-40.0 [facility] CenterWoexhstOZDFCZHASK4032-89-51 07:51:00 Test Item Value Reference Range Interpretation Comments Basophils # (test code 0.1 See_Comment [Aut omated message] The = Basophils #) system which generated this result tra nsmitted reference range : <=0.2. The reference r ozzy was not used to int erpret this result as normal/abnormal . [facility]2015-01-23 07:51:00 Test Item Value Reference Range Interpretation Comments UA Urobilinogen (test code = UA 1.0 0.1-1.0 Urobilinogen) [facility]2015-01-23 07:51:00 Test Item Value Reference Range Interpretation Comments UA Turbidity (test code Cloudy *ABN*(09/04/14 = UA Turbidity) 1:51 AM) [facility]2015-01-23 07:51:00 Test Item Value Reference Range Interpretation Comments UA Color (test code = Red *ABN*(09/04/14 1:51 UA Color) AM) [facility]2015-01-23 07:51:00 Test Item Value Reference Range Interpretation Comments UA Ketones (test code Negative *NA*(09/04/14 = UA Ketones) 1:51 AM) [facility] AND [id number] 07:51:00 Test Item Value Reference Range Interpretation Comments UA Glucose (test code Negative (09/04/14 1:51 = UA Glucose) AM) [facility] AND [id number] 07:51:00 Test Item Value Reference Range Interpretation Comments UA Protein (test code = Trace *ABN*(09/04/14 UA Protein) 1:51 AM) [facility] AND [id number] 07:51:00 Test Item Value Reference Range Interpretation Comments UA pH (test code = UA pH) 8.0 1 5.0-8.0 [facility] AND [id number] 07:51:00 Test Item Value Reference Range Interpretation Comments UA Spec Grav (test code = UA Spec 1.015 1 Grav) [facility] AND [id number] 07:51:00 Test Item Value Reference Range Interpretation Comments UA Bili (test code = Negative *NA*(09/04/14 UA Bili) 1:51 AM) [facility] AND [id number] 07:51:00 Test Item Value Reference Range Interpretation Comments UA Blood (test code = Large *ABN*(09/04/14 UA Blood) 1:51 AM) [facility] AND [id number] 07:51:00 Test Item Value Reference Range Interpretation Comments UA Leuk Est (test Negative (09/04/14 1:51 code = UA Leuk Est) AM) [facility] AND [id number] 07:51:00 Test Item Value Reference Range Interpretation Comments UA Nitrite (test code Negative (09/04/14 1:51 = UA Nitrite) AM) [facility] AND [id number] 07:51:00 Test Item Value Reference Range Interpretation Comments UA Amorph Joselin (test code = UA Few /HPF Amorph Joselin) [facility] AND [id number] 07:51:00 Test Item Value Reference Range Interpretation Comments UA RBC (test code 51-100 /HPF See_Comment [Automate d message] The = UA RBC) system which ge nerated this result tra nsmitted reference range : <=2. The reference r ozzy was not used to int erpret this result as normal/abnormal . [facility] AND [id number] 07:51:00 Test Item Value Reference Range Interpretation Comments UA WBC (test code = UA WBC) 6-10 /HPF [facility] AND [id number] 07:51:00 Test Item Value Reference Range Interpretation Comments UA Bacteria (test code = UA Few /HPF Bacteria) [facility] [id number] 07:51:00 Test Item Value Reference Range Interpretation Comments UA Sq Epi (test code = UA Sq Occasional /LPF Epi) [facility] [employer] [id number] 07:51:00 Test Item Value Reference Range Interpretation Comments ABO/Rh (test code = ABO/Rh) A POS [facility] [employer] [facility] [id number] 07:51:00 Test Item Value Reference Range Interpretation Comments Antibody Scrn (test Negative (09/04/14 1:51 code = Antibody Scrn) AM) [facility] [employer] [id number] 07:51:00 Test Item Value Reference Range Interpretation Comments Albumin Lvl (test code = Albumin Lvl) 3.4 3.5-5.0 [facility] [employer] [id number] 07:51:00 Test Item Value Reference Range Interpretation Comments Alk Phos (test code = Alk Phos) 64 39-136 [facility] [employer] [id number] 07:51:00 Test Item Value Reference Range Interpretation Comments ALT (test code = ALT) 18 See_Comment [Auto mated message] The system which ge nerated this result transmit gaye reference range : <=65. The reference range was not used to interpr et this result as satish l/abnormal. [facility] [employer] [id number] 07:51:00 Test Item Value Reference Range Interpretation Comments AST (test code = AST) 12 See_Comment [Auto mated message] The system which ge nerated this result transmit gaye reference range : <=37. The reference range was not used to interpr et this result as satish l/abnormal. [facility] [employer] [id number] 07:51:00 Test Item Value Reference Range Interpretation Comments eGFR (test code = eGFR) 93 [facility] [employer] [id number] 07:51:00 Test Item Value Reference Range Interpretation Comments Bili Total (test code = Bili Total) 0.3 0.2-1.3 [facility] [employer] [id number] 07:51:00 Test Item Value Reference Range Interpretation Comments Chloride Lvl (test code = Chloride Lvl) 108 95-109 [facility] [employer] [id number] 07:51:00 Test Item Value Reference Range Interpretation Comments Sodium Lvl (test code = Sodium Lvl) 138 135-145 [facility]2015-01-23 07:51:00 Test Item Value Reference Range Interpretation Comments Potassium Lvl (test code = Potassium 3.9 3.5-5.1 Lvl) [facility]2015-01-23 07:51:00 Test Item Value Reference Range Interpretation Comments CO2 (test code = CO2) 22 24-32 [facility]2015-01-23 07:51:00 Test Item Value Reference Range Interpretation Comments Calcium Lvl (test code = Calcium Lvl) 8.8 8.5-10.5 [facility]2015-01-23 07:51:00 Test Item Value Reference Range Interpretation Comments Glucose Lvl (test code = Glucose Lvl) 98 70-99 [facility]2015-01-23 07:51:00 Test Item Value Reference Range Interpretation Comments Total Protein (test code = Total 7.3 6.4-8.4 Protein) [facility]2015-01-23 07:51:00 Test Item Value Reference Range Interpretation Comments BUN (test code = BUN) 12 7-22 [facility]2015-01-23 07:51:00 Test Item Value Reference Range Interpretation Comments Creatinine Lvl (test code = Creatinine 0.8 0.5-1.4 Lvl) [facility]2015-01-23 07:51:00 Test Item Value Reference Range Interpretation Comments AGAP (test code = AGAP) 11.9 10.0-20.0 [facility]2015-01-23 07:51:00 Test Item Value Reference Range Interpretation Comments B/C Ratio (test code = B/C Ratio) 15 6-25 [facility]2015-01-23 07:51:00 Test Item Value Reference Range Interpretation Comments Globulin (test code = Globulin) 3.9 2.0-4.0 [facility]2015-01-23 07:51:00 Test Item Value Reference Range Interpretation Comments A/G Ratio (test code = A/G Ratio) 0.9 0.7-1.6 [facility]pxkdnmFJTDYKHNJRTBS0013-42-23 07:51:00 Test Item Value Reference Range Interpretation Comments hCG Tot (test code = hCG Tot) no gt [facility] CenterCvyvpzxAZFNCOLEFI8171-79-25 07:51:00 Test Item Value Reference Range Interpretation Comments MCHC (test code = MCHC) 33.8 32.0-36.0 [facility] CenterZnwjxtgBFFPWXYYNS2026-82-99 07:51:00 Test Item Value Reference Range Interpretation Comments MCH (test code = MCH) 30.3 pg 27.0-31.0 [facility] CenterQnxokmgVJMUSAVFRC9643-44-59 07:51:00 Test Item Value Reference Range Interpretation Comments RDW (test code = RDW) 13.0 11.5-14.5 [facility] CenterIfjgzfaPCNUICYOMA8290-68-02 07:51:00 Test Item Value Reference Range Interpretation Comments MPV (test code = MPV) 8.4 7.4-10.4 [facility] C[id number] 07:51:00 Test Item Value Reference Range Interpretation Comments Platelet (test code = Platelet) 356 133-450 [facility] CenterPeohafeTPIRTAINGH9437-27-80 07:51:00 Test Item Value Reference Range Interpretation Comments RBC (test code = RBC) 4.45 4.20-5.40 [facility] CenterPvxwwzsOCVXSJRZFD0689-07-03 07:51:00 Test Item Value Reference Range Interpretation Comments WBC (test code = WBC) 12.9 3.7-10.4 [facility] CenterYxdlzxmKUHBYCQWHZ6724-91-37 07:51:00 Test Item Value Reference Range Interpretation Comments Hgb (test code = Hgb) 13.5 12.0-16.0 [facility] CenterGttlsgpVRNWRMMRPG2059-01-74 07:51:00 Test Item Value Reference Range Interpretation Comments MCV (test code = MCV) 89.7 80.0-98.0 [facility] CenterCpgstowXFULOVPPXT7065-15-76 07:51:00 Test Item Value Reference Range Interpretation Comments Hct (test code = Hct) 39.9 36.0-48.0 [facility] CenterAldpwcyZVBXPAWPWO2906-73-06 07:51:00 Test Item Value Reference Range Interpretation Comments Eosinophils # (test code 0.3 See_Comment [A utomated message] The = Eosinophils #) system whic h generated this result tra nsmitted reference range : <=0.5. The reference r ozzy was not used to int erpret this result as normal/abnormal . [facility] CenterXfddwfeMFPGHECDNB9511-91-02 07:51:00 Test Item Value Reference Range Interpretation Comments Lymphocytes # (test code = Lymphocytes 3.6 1.0-5.5 #) [facility] CenterUfuemmuKFQVHIAXZW3265-69-59 07:51:00 Test Item Value Reference Range Interpretation Comments Monocytes # (test code 0.7 See_Comment [Aut omated message] The = Monocytes #) system which generated this result tra nsmitted reference range : <=0.8. The reference r ozzy was not used to int erpret this result as normal/abnormal . [id number] 07:51:00 Test Item Value Reference Range Interpretation Comments Segs (test code = Segs) 63.9 45.0-75.0 [facility]OqgkgskBXUBRZWIRO0463-14-01 07:51:00 Test Item Value Reference Range Interpretation Comments Segs-Bands # (test code = Segs-Bands #) 8.2 1.5-8.1 [facility] C[id number] 07:51:00 Test Item Value Reference Range Interpretation Comments Basophils (test code = 0.7 See_Comment [Aut omated message] The Basophils) system which ge nerated this result tra nsmitted reference range : <=1.0. The reference r ozzy was not used to int erpret this result as normal/abnormal . [facility] CenterTzxmwqoDRXESIKWBC5284-86-42 07:51:00 Test Item Value Reference Range Interpretation Comments Monocytes (test code = Monocytes) 5.4 2.0-12.0 [facility] CenterPzrfwdhBJSBHDZREC7077-38-48 07:51:00 Test Item Value Reference Range Interpretation Comments Eosinophils (test code = 2.3 See_Comment [A utomated message] The Eosinophils) system which ge nerated this result tra nsmitted reference range : <=4.0. The reference r ozzy was not used to int erpret this result as normal/abnormal . [facility] CenterQjavlbiRLIDKYITWU0555-57-30 07:51:00 Test Item Value Reference Range Interpretation Comments Lymphocytes (test code = Lymphocytes) 27.7 20.0-40.0 [facility] CenterQifrazyGVGAOFLKUL8644-79-44 07:51:00 Test Item Value Reference Range Interpretation Comments Basophils # (test code 0.1 See_Comment [Aut omated message] The = Basophils #) system which generated this result tra nsmitted reference range : <=0.2. The reference r ozzy was not used to int erpret this result as normal/abnormal . [facility] AND [id number] 07:51:00 Test Item Value Reference Range Interpretation Comments UA Urobilinogen (test code = UA 1.0 0.1-1.0 Urobilinogen) [facility] AND [id number] 07:51:00 Test Item Value Reference Range Interpretation Comments UA Turbidity (test code Cloudy *ABN*(09/04/14 = UA Turbidity) 1:51 AM) [facility] AND [id number] 07:51:00 Test Item Value Reference Range Interpretation Comments UA Color (test code = Red *ABN*(09/04/14 1:51 UA Color) AM) [facility] AND [id number] 07:51:00 Test Item Value Reference Range Interpretation Comments UA Ketones (test code Negative *NA*(09/04/14 = UA Ketones) 1:51 AM) [facility] AND [id number] 07:51:00 Test Item Value Reference Range Interpretation Comments UA Glucose (test code Negative (09/04/14 1:51 = UA Glucose) AM) [facility] AND [id number] 07:51:00 Test Item Value Reference Range Interpretation Comments UA Protein (test code = Trace *ABN*(09/04/14 UA Protein) 1:51 AM) [facility] AND [id number] 07:51:00 Test Item Value Reference Range Interpretation Comments UA pH (test code = UA pH) 8.0 1 5.0-8.0 [facility] AND [id number] 07:51:00 Test Item Value Reference Range Interpretation Comments UA Spec Grav (test code = UA Spec 1.015 1 Grav) [facility] AND [id number] 07:51:00 Test Item Value Reference Range Interpretation Comments UA Bili (test code = Negative *NA*(09/04/14 UA Bili) 1:51 AM) [facility] AND [id number] 07:51:00 Test Item Value Reference Range Interpretation Comments UA Blood (test code = Large *ABN*(09/04/14 UA Blood) 1:51 AM) [facility] AND [id number] 07:51:00 Test Item Value Reference Range Interpretation Comments UA Leuk Est (test Negative (09/04/14 1:51 code = UA Leuk Est) AM) [facility] AND [id number] 07:51:00 Test Item Value Reference Range Interpretation Comments UA Nitrite (test code Negative (09/04/14 1:51 = UA Nitrite) AM) [facility] AND [id number] 07:51:00 Test Item Value Reference Range Interpretation Comments UA Amorph Joselin (test code = UA Few /HPF Amorph Joselin) [facility] AND [id number] 07:51:00 Test Item Value Reference Range Interpretation Comments UA RBC (test code 51-100 /HPF See_Comment [Automate d message] The = UA RBC) system which ge nerated this result tra nsmitted reference range : <=2. The reference r ozzy was not used to int erpret this result as normal/abnormal . [facility] AND [id number] 07:51:00 Test Item Value Reference Range Interpretation Comments UA WBC (test code = UA WBC) 6-10 /HPF [facility] AND [id number] 07:51:00 Test Item Value Reference Range Interpretation Comments UA Bacteria (test code = UA Few /HPF Bacteria) [facility] AND [id number] 07:51:00 Test Item Value Reference Range Interpretation Comments UA Sq Epi (test code = UA Sq Occasional /LPF Epi) [facility] [employer] [id number] 07:51:00 Test Item Value Reference Range Interpretation Comments ABO/Rh (test code = ABO/Rh) A POS [facility] [employer] [id number] 07:51:00 Test Item Value Reference Range Interpretation Comments Antibody Scrn (test Negative (09/04/14 1:51 code = Antibody Scrn) AM) [facility] [employer]OS [id number] 07:51:00 Test Item Value Reference Range Interpretation Comments Albumin Lvl (test code = Albumin Lvl) 3.4 3.5-5.0 [facility] [employer] [id number] 07:51:00 Test Item Value Reference Range Interpretation Comments Alk Phos (test code = Alk Phos) 64 39-136 [facility]2015-01-23 07:51:00 Test Item Value Reference Range Interpretation Comments ALT (test code = ALT) 18 See_Comment [Auto mated message] The system which ge nerated this result transmit gaye reference range : <=65. The reference range was not used to interpr et this result as satish l/abnormal. [facility]2015-01-23 07:51:00 Test Item Value Reference Range Interpretation Comments AST (test code = AST) 12 See_Comment [Auto mated message] The system which ge nerated this result transmit gaye reference range : <=37. The reference range was not used to interpr et this result as satish l/abnormal. [facility] CenterFlyClipDU[id number] 07:51:00 Test Item Value Reference Range Interpretation Comments eGFR (test code = eGFR) 93 [facility]2015-01-23 07:51:00 Test Item Value Reference Range Interpretation Comments Bili Total (test code = Bili Total) 0.3 0.2-1.3 [facility]2015-01-23 07:51:00 Test Item Value Reference Range Interpretation Comments Chloride Lvl (test code = Chloride Lvl) 108 95-109 [facility] Centerorgangir.am [id number] 07:51:00 Test Item Value Reference Range Interpretation Comments Sodium Lvl (test code = Sodium Lvl) 138 135-145 [facility]2015-01-23 07:51:00 Test Item Value Reference Range Interpretation Comments Potassium Lvl (test code = Potassium 3.9 3.5-5.1 Lvl) [facility]2015-01-23 07:51:00 Test Item Value Reference Range Interpretation Comments CO2 (test code = CO2) 22 24-32 [facility] CenterFlyClipDUKE UNIVERSITY [id number] 07:51:00 Test Item Value Reference Range Interpretation Comments Calcium Lvl (test code = Calcium Lvl) 8.8 8.5-10.5 [facility]2015-01-23 07:51:00 Test Item Value Reference Range Interpretation Comments Glucose Lvl (test code = Glucose Lvl) 98 70-99 [facility]2015-01-23 07:51:00 Test Item Value Reference Range Interpretation Comments Total Protein (test code = Total 7.3 6.4-8.4 Protein) [facility] [employer] [id number] 07:51:00 Test Item Value Reference Range Interpretation Comments BUN (test code = BUN) 12 7-22 [facility] Centerorgangir[facility]am [id number] 07:51:00 Test Item Value Reference Range Interpretation Comments Creatinine Lvl (test code = Creatinine 0.8 0.5-1.4 Lvl) [facility] [id number] 07:51:00 Test Item Value Reference Range Interpretation Comments AGAP (test code = AGAP) 11.9 10.0-20.0 [facility] [employer] [id number] 07:51:00 Test Item Value Reference Range Interpretation Comments B/C Ratio (test code = B/C Ratio) 15 6-25 [facility] [employer] [id number] 07:51:00 Test Item Value Reference Range Interpretation Comments ABO/Rh (test code = ABO/Rh) A POS [facility] [employer] [id number] 07:51:00 Test Item Value Reference Range Interpretation Comments Antibody Scrn (test Negative (09/04/14 1:51 code = Antibody Scrn) AM) [facility] [employer] [id number] 07:51:00 Test Item Value Reference Range Interpretation Comments Albumin Lvl (test code = Albumin Lvl) 3.4 3.5-5.0 [facility] [employer] [id number] 07:51:00 Test Item Value Reference Range Interpretation Comments Alk Phos (test code = Alk Phos) 64 39-136 [facility] [employer] [id number] 07:51:00 Test Item Value Reference Range Interpretation Comments ALT (test code = ALT) 18 See_Comment [Auto mated message] The system which ge nerated this result transmit gaye reference range : <=65. The reference range was not used to interpr et this result as satish l/abnormal. [facility] [employer] [id number] 07:51:00 Test Item Value Reference Range Interpretation Comments AST (test code = AST) 12 See_Comment [Auto mated message] The system which ge nerated this result transmit gaye reference range : <=37. The reference range was not used to interpr et this result as satish l/abnormal. [facility] [employer] [id number] 07:51:00 Test Item Value Reference Range Interpretation Comments eGFR (test code = eGFR) 93 [facility]2015-01-23 07:51:00 Test Item Value Reference Range Interpretation Comments Bili Total (test code = Bili Total) 0.3 0.2-1.3 [facility]2015-01-23 07:51:00 Test Item Value Reference Range Interpretation Comments Chloride Lvl (test code = Chloride Lvl) 108 95-109 [facility]2015-01-23 07:51:00 Test Item Value Reference Range Interpretation Comments Sodium Lvl (test code = Sodium Lvl) 138 135-145 [facility]2015-01-23 07:51:00 Test Item Value Reference Range Interpretation Comments Potassium Lvl (test code = Potassium 3.9 3.5-5.1 Lvl) [facility]2015-01-23 07:51:00 Test Item Value Reference Range Interpretation Comments CO2 (test code = CO2) 22 24-32 [facility]2015-01-23 07:51:00 Test Item Value Reference Range Interpretation Comments Calcium Lvl (test code = Calcium Lvl) 8.8 8.5-10.5 [facility]2015-01-23 07:51:00 Test Item Value Reference Range Interpretation Comments Glucose Lvl (test code = Glucose Lvl) 98 70-99 [facility]2015-01-23 07:51:00 Test Item Value Reference Range Interpretation Comments Total Protein (test code = Total 7.3 6.4-8.4 Protein) [facility]2015-01-23 07:51:00 Test Item Value Reference Range Interpretation Comments BUN (test code = BUN) 12 - [facility]2015-01-23 07:51:00 Test Item Value Reference Range Interpretation Comments Creatinine Lvl (test code = Creatinine 0.8 0.5-1.4 Lvl) [facility]2015-01-23 07:51:00 Test Item Value Reference Range Interpretation Comments AGAP (test code = AGAP) 11.9 10.0-20.0 [facility]2015-01-23 07:51:00 Test Item Value Reference Range Interpretation Comments B/C Ratio (test code = B/C Ratio) 15 6-25 [place] [id number] 07:51:00 Test Item Value Reference Range Interpretation Comments Globulin (test code = Globulin) 3.9 2.0-4.0 [facility] [id number] 07:51:00 Test Item Value Reference Range Interpretation Comments A/G Ratio (test code = A/G Ratio) 0.9 0.7-1.6 [facility]sit[facility]kYKWIJYTYKKIJJ2763-92-04 07:51:00 Test Item Value Reference Range Interpretation Comments hCG Tot (test code = hCG Tot) no gt [facility] [id number] 07:51:00 Test Item Value Reference Range Interpretation Comments MCHC (test code = MCHC) 33.8 32.0-36.0 [facility] CenterOuzcfegKUFKLTXFEX9893-82-02 07:51:00 Test Item Value Reference Range Interpretation Comments MCH (test code = MCH) 30.3 pg 27.0-31.0 [facility] CenterMbznpszFYAVHBKBRZ8114-50-85 07:51:00 Test Item Value Reference Range Interpretation Comments RDW (test code = RDW) 13.0 11.5-14.5 [facility] CenterOmohalqFIWOPXZTAV6787-12-66 07:51:00 Test Item Value Reference Range Interpretation Comments MPV (test code = MPV) 8.4 7.4-10.4 [facility] CenterLvtseboFWRFJPQWLE2242-83-84 07:51:00 Test Item Value Reference Range Interpretation Comments Platelet (test code = Platelet) 356 133-450 [facility] Ce[id number] 07:51:00 Test Item Value Reference Range Interpretation Comments RBC (test code = RBC) 4.45 4.20-5.40 [facility] CenterRyorpcvJJNFYOAUHU6850-97-81 07:51:00 Test Item Value Reference Range Interpretation Comments WBC (test code = WBC) 12.9 3.7-10.4 [facility] CenterKjuweryEFSGQRYOPX3085-27-48 07:51:00 Test Item Value Reference Range Interpretation Comments Hgb (test code = Hgb) 13.5 12.0-16.0 [facility] CenterFjbrhtiJLRVEWSNEI3852-96-11 07:51:00 Test Item Value Reference Range Interpretation Comments MCV (test code = MCV) 89.7 80.0-98.0 [facility] CenterLicnnwjPDOXQONLGB1241-49-42 07:51:00 Test Item Value Reference Range Interpretation Comments Hct (test code = Hct) 39.9 36.0-48.0 [facility] CenterZwjttnsBRHWXNTLZG8404-90-69 07:51:00 Test Item Value Reference Range Interpretation Comments Eosinophils # (test code 0.3 See_Comment [A utomated message] The = Eosinophils #) system whic h generated this result tra nsmitted reference range : <=0.5. The reference r ozzy was not used to int erpret this result as normal/abnormal . [facility] CenterWoqfsanESLFNOQEZP9240-78-23 07:51:00 Test Item Value Reference Range Interpretation Comments Lymphocytes # (test code = Lymphocytes 3.6 1.0-5.5 #) [facility] [id number] 07:51:00 Test Item Value Reference Range Interpretation Comments Monocytes # (test code 0.7 See_Comment [Aut omated message] The = Monocytes #) system which generated this result tra nsmitted reference range : <=0.8. The reference r ozzy was not used to int erpret this result as normal/abnormal . [facility] [id number] 07:51:00 Test Item Value Reference Range Interpretation Comments Segs (test code = Segs) 63.9 45.0-75.0 [facility] CenterLlfjmnsFZYUNWEEFA7734-16-11 07:51:00 Test Item Value Reference Range Interpretation Comments Segs-Bands # (test code = Segs-Bands #) 8.2 1.5-8.1 [facility] C[id number] 07:51:00 Test Item Value Reference Range Interpretation Comments Basophils (test code = 0.7 See_Comment [Aut omated message] The Basophils) system which ge nerated this result tra nsmitted reference range : <=1.0. The reference r ozzy was not used to int erpret this result as normal/abnormal . [facility] CenterDnaafnrYJCMXVDNHW7211-48-83 07:51:00 Test Item Value Reference Range Interpretation Comments Monocytes (test code = Monocytes) 5.4 2.0-12.0 [facility] CenterXxxrzrkRISMPCQQOS4294-17-41 07:51:00 Test Item Value Reference Range Interpretation Comments Eosinophils (test code = 2.3 See_Comment [A utomated message] The Eosinophils) system which ge nerated this result tra nsmitted reference range : <=4.0. The reference r ozzy was not used to int erpret this result as normal/abnormal . [facility] CenterVjycygpKCJIUUOOOL5890-44-78 07:51:00 Test Item Value Reference Range Interpretation Comments Lymphocytes (test code = Lymphocytes) 27.7 20.0-40.0 [facility] [id number] 07:51:00 Test Item Value Reference Range Interpretation Comments Basophils # (test code 0.1 See_Comment [Aut omated message] The = Basophils #) system which generated this result tra nsmitted reference range : <=0.2. The reference r ozzy was not used to int erpret this result as normal/abnormal . [facility] AND [id number] 07:51:00 Test Item Value Reference Range Interpretation Comments UA Urobilinogen (test code = UA 1.0 0.1-1.0 Urobilinogen) [facility] AND [id number] 07:51:00 Test Item Value Reference Range Interpretation Comments UA Turbidity (test code Cloudy *ABN*(09/04/14 = UA Turbidity) 1:51 AM) [facility] AND [id number] 07:51:00 Test Item Value Reference Range Interpretation Comments UA Color (test code = Red *ABN*(09/04/14 1:51 UA Color) AM) [facility] AND [id number] 07:51:00 Test Item Value Reference Range Interpretation Comments UA Ketones (test code Negative *NA*(09/04/14 = UA Ketones) 1:51 AM) [facility] AND [id number] 07:51:00 Test Item Value Reference Range Interpretation Comments UA Glucose (test code Negative (09/04/14 1:51 = UA Glucose) AM) [facility] AND [id number] 07:51:00 Test Item Value Reference Range Interpretation Comments UA Protein (test code = Trace *ABN*(09/04/14 UA Protein) 1:51 AM) [facility] AND [id number] 07:51:00 Test Item Value Reference Range Interpretation Comments UA pH (test code = UA pH) 8.0 1 5.0-8.0 [facility] AND [id number] 07:51:00 Test Item Value Reference Range Interpretation Comments UA Spec Grav (test code = UA Spec 1.015 1 Grav) [facility] AND [id number] 07:51:00 Test Item Value Reference Range Interpretation Comments UA Bili (test code = Negative *NA*(09/04/14 UA Bili) 1:51 AM) [facility] AND [id number] 07:51:00 Test Item Value Reference Range Interpretation Comments UA Blood (test code = Large *ABN*(09/04/14 UA Blood) 1:51 AM) [facility] AND [id number] 07:51:00 Test Item Value Reference Range Interpretation Comments UA Leuk Est (test Negative (09/04/14 1:51 code = UA Leuk Est) AM) [facility] AND [id number] 07:51:00 Test Item Value Reference Range Interpretation Comments UA Nitrite (test code Negative (09/04/14 1:51 = UA Nitrite) AM) [facility] AND [id number] 07:51:00 Test Item Value Reference Range Interpretation Comments UA Amorph Joselin (test code = UA Few /HPF Amorph Joselin) [facility] AND [id number] 07:51:00 Test Item Value Reference Range Interpretation Comments UA RBC (test code 51-100 /HPF See_Comment [Automate d message] The = UA RBC) system which ge nerated this result tra nsmitted reference range : <=2. The reference r ozzy was not used to int erpret this result as normal/abnormal . [facility] AND [id number] 07:51:00 Test Item Value Reference Range Interpretation Comments UA WBC (test code = UA WBC) 6-10 /HPF [facility] AND [id number] 07:51:00 Test Item Value Reference Range Interpretation Comments UA Bacteria (test code = UA Few /HPF Bacteria) [facility] AND [id number] 07:51:00 Test Item Value Reference Range Interpretation Comments UA Sq Epi (test code = UA Sq Occasional /LPF Epi) [facility] [id number] 19:24:00 Test Item Value Reference Range Interpretation Comments Lipase Lvl (test code = Lipase Lvl) 104 73-393 [facility] [id number] 19:24:00 Test Item Value Reference Range Interpretation Comments eGFR (test code = eGFR) 109 [facility]2015-01-12 19:24:00 Test Item Value Reference Range Interpretation Comments Bili Total (test code = Bili Total) 0.6 0.2-1.3 [facility]2015-01-12 19:24:00 Test Item Value Reference Range Interpretation Comments Alk Phos (test code = Alk Phos) 72 39-136 [facility]2015-01-12 19:24:00 Test Item Value Reference Range Interpretation Comments Calcium Lvl (test code = Calcium Lvl) 8.8 8.5-10.5 [facility]2015-01-12 19:24:00 Test Item Value Reference Range Interpretation Comments CO2 (test code = CO2) 28 24-32 [facility]2015-01-12 19:24:00 Test Item Value Reference Range Interpretation Comments Chloride Lvl (test code = Chloride Lvl) 107 95-109 [facility]2015-01-12 19:24:00 Test Item Value Reference Range Interpretation Comments Potassium Lvl (test code = Potassium 3.9 3.5-5.1 Lvl) [facility]2015-01-12 19:24:00 Test Item Value Reference Range Interpretation Comments Glucose Lvl (test code = Glucose Lvl) 90 70-99 [facility]2015-01-12 19:24:00 Test Item Value Reference Range Interpretation Comments Sodium Lvl (test code = Sodium Lvl) 138 135-145 [facility]2015-01-12 19:24:00 Test Item Value Reference Range Interpretation Comments BUN (test code = BUN) 7 7-22 [facility]2015-01-12 19:24:00 Test Item Value Reference Range Interpretation Comments Creatinine Lvl (test code = Creatinine 0.7 0.5-1.4 Lvl) [facility]2015-01-12 19:24:00 Test Item Value Reference Range Interpretation Comments ALT (test code = ALT) 23 See_Comment [Auto mated message] The system which ge nerated this result transmit gaye reference range : <=65. The reference range was not used to interpr et this result as satish l/abnormal. [facility]2015-01-12 19:24:00 Test Item Value Reference Range Interpretation Comments AST (test code = AST) 12 See_Comment [Auto mated message] The system which ge nerated this result transmit gaye reference range : <=37. The reference range was not used to interpr et this result as satish l/abnormal. [facility]2015-01-12 19:24:00 Test Item Value Reference Range Interpretation Comments Albumin Lvl (test code = Albumin Lvl) 3.8 3.5-5.0 [facility]2015-01-12 19:24:00 Test Item Value Reference Range Interpretation Comments Total Protein (test code = Total 8.0 6.4-8.4 Protein) [facility]2015-01-12 19:24:00 Test Item Value Reference Range Interpretation Comments A/G Ratio (test code = A/G Ratio) 0.9 0.7-1.6 [facility]2015-01-12 19:24:00 Test Item Value Reference Range Interpretation Comments AGAP (test code = AGAP) 6.9 10.0-20.0 [facility]2015-01-12 19:24:00 Test Item Value Reference Range Interpretation Comments B/C Ratio (test code = B/C Ratio) 10 6-25 [facility]2015-01-12 19:24:00 Test Item Value Reference Range Interpretation Comments Globulin (test code = Globulin) 4.2 2.0-4.0 [facility]QPWIYDX1357-12-78 19:24:00 Test Item Value Reference Range Interpretation Comments S Preg (test code = S Negative *NA*(08/24/14 Preg) 1:24 PM) [id number] 19:24:00 Test Item Value Reference Range Interpretation Comments WBC (test code = WBC) 11.3 3.7-10.4 [facility] CenterOkyowyrIYPFHYRVKI3801-01-15 19:24:00 Test Item Value Reference Range Interpretation Comments RBC (test code = RBC) 4.75 4.20-5.40 [facility] CenterZuhrwjtSQVXMNUHIC1986-74-39 19:24:00 Test Item Value Reference Range Interpretation Comments Platelet (test code = Platelet) 402 133-450 [facility] CenterAronqtmPRIEXGWGWB5891-05-87 19:24:00 Test Item Value Reference Range Interpretation Comments MCV (test code = MCV) 89.9 80.0-98.0 [facility] CenterQrinlbjSTMPSANNKF8242-04-54 19:24:00 Test Item Value Reference Range Interpretation Comments Hct (test code = Hct) 42.7 36.0-48.0 [facility] CenterHxrbxawQPYPVIBSKO1957-88-54 19:24:00 Test Item Value Reference Range Interpretation Comments Hgb (test code = Hgb) 14.5 12.0-16.0 [facility] CenterPcaojlhKYKHHZEFDN8430-26-16 19:24:00 Test Item Value Reference Range Interpretation Comments RDW (test code = RDW) 13.5 11.5-14.5 [facility] CenterTqmtmhpTHQPXECITO1649-40-30 19:24:00 Test Item Value Reference Range Interpretation Comments MCHC (test code = MCHC) 34.0 32.0-36.0 [facility] CenterCxosqtpJYSVBIIXHK6026-51-11 19:24:00 Test Item Value Reference Range Interpretation Comments MCH (test code = MCH) 30.6 pg 27.0-31.0 [facility] CenterUngiiqyQQWBGMVRRA6553-59-51 19:24:00 Test Item Value Reference Range Interpretation Comments MPV (test code = MPV) 8.1 7.4-10.4 [id number] 19:24:00 Test Item Value Reference Range Interpretation Comments Stomatocyte (test code = Stomatocyte) [facility]YbvkgioFKQHWGYIOZ9263-00-03 19:24:00 Test Item Value Reference Range Interpretation Comments Basophils # (test code 0.1 See_Comment [Aut omated message] The = Basophils #) system which generated this result tra nsmitted reference range : <=0.2. The reference r ozzy was not used to int erpret this result as normal/abnormal . [facility] CenterUiwoqzoXPILWQTWVQ3392-40-99 19:24:00 Test Item Value Reference Range Interpretation Comments Eosinophils # (test code 0.2 See_Comment [A utomated message] The = Eosinophils #) system whic h generated this result tra nsmitted reference range : <=0.5. The reference r ozzy was not used to int erpret this result as normal/abnormal . [facility] CenterUagbkfcAEGLKXGQLZ2566-79-46 19:24:00 Test Item Value Reference Range Interpretation Comments Hypochrom (test code = 1+ (08/24/14 1:24 PM) Hypochrom) [facility] CenterOagepvcAEWBIVUMVO2337-56-75 19:24:00 Test Item Value Reference Range Interpretation Comments Lymphocytes # (test code = Lymphocytes 2.8 1.0-5.5 #) [facility] CenterRjiqqzlUKVBGGSKNO2993-59-86 19:24:00 Test Item Value Reference Range Interpretation Comments Segs-Bands # (test code = Segs-Bands #) 8.1 1.5-8.1 [facility] CenterCujaotmHKOUPKISAN2642-03-26 19:24:00 Test Item Value Reference Range Interpretation Comments Monocytes # (test code 0.2 See_Comment [Aut omated message] The = Monocytes #) system which generated this result tra nsmitted reference range : <=0.8. The reference r ozzy was not used to int erpret this result as normal/abnormal . [facility] CenterEhyoaxbZQZYZFTZMC4664-39-58 19:24:00 Test Item Value Reference Range Interpretation Comments Lymphocytes (test code = Lymphocytes) 24.5 20.0-40.0 [facility] CenterWvvmrocPUYLIKAXJG8123-67-44 19:24:00 Test Item Value Reference Range Interpretation Comments Segs (test code = Segs) 71.8 45.0-75.0 [facility] CenterOrskeicKVBWTZNOBF4415-01-60 19:24:00 Test Item Value Reference Range Interpretation Comments Basophils (test code = 0.6 See_Comment [Aut omated message] The Basophils) system which ge nerated this result tra nsmitted reference range : <=1.0. The reference r ozzy was not used to int erpret this result as normal/abnormal . [facility] CenterDmsbnqnZCMBGGIMCB1427-18-22 19:24:00 Test Item Value Reference Range Interpretation Comments Monocytes (test code = Monocytes) 1.5 2.0-12.0 [facility] CenterFdgbmaiZIQCFOYFGQ3760-73-33 19:24:00 Test Item Value Reference Range Interpretation Comments Eosinophils (test code = 1.6 See_Comment [A utomated message] The Eosinophils) system which ge nerated this result tra nsmitted reference range : <=4.0. The reference r ozzy was not used to int erpret this result as normal/abnormal . [facility] CenterTbjvkcvQVTNKBXZZM2673-05-42 19:24:00 Test Item Value Reference Range Interpretation Comments Plt Morph (test code = Normal (08/24/14 1:24 Plt Morph) PM) [facility] AND [id number] 19:24:00 Test Item Value Reference Range Interpretation Comments UA Sq Epi (test code = UA Sq Occasional /LPF Epi) [facility] AND [id number] 19:24:00 Test Item Value Reference Range Interpretation Comments UA Bacteria (test code = UA Occasional /HPF Bacteria) [facility] AND [id number] 19:24:00 Test Item Value Reference Range Interpretation Comments UA Mucus (test code = None Seen (08/24/14 UA Mucus) 1:24 PM) [facility] AND [id number] 19:24:00 Test Item Value Reference Range Interpretation Comments UA WBC (test code = UA WBC) 0-2 /HPF [facility] AND [id number] 19:24:00 Test Item Value Reference Range Interpretation Comments UA RBC (test code = 0-2 /HPF See_Comment [Automa gaye message] The UA RBC) system which ge nerated this result tra nsmitted reference range : <=2. The reference range was not used to interpr et this result as satish l/abnormal. [facility] AND [id number] 19:24:00 Test Item Value Reference Range Interpretation Comments UA Leuk Est (test Moderate *ABN*(08/24/14 code = UA Leuk Est) 1:24 PM) [facility] AND [id number] 19:24:00 Test Item Value Reference Range Interpretation Comments UA Nitrite (test code Negative (08/24/14 1:24 = UA Nitrite) PM) [facility] AND [id number] 19:24:00 Test Item Value Reference Range Interpretation Comments UA Urobilinogen (test code = UA 0.2 0.1-1.0 Urobilinogen) [facility] AND [id number] 19:24:00 Test Item Value Reference Range Interpretation Comments UA Ketones (test code Negative *NA*(08/24/14 = UA Ketones) 1:24 PM) [facility] AND [id number] 19:24:00 Test Item Value Reference Range Interpretation Comments UA Blood (test code = Negative (08/24/14 1:24 UA Blood) PM) [facility] AND [id number] 19:24:00 Test Item Value Reference Range Interpretation Comments UA Bili (test code = Negative *NA*(08/24/14 UA Bili) 1:24 PM) [facility] AND [id number] 19:24:00 Test Item Value Reference Range Interpretation Comments UA Color (test code = Yellow *NA*(08/24/14 UA Color) 1:24 PM) [facility] AND [id number] 19:24:00 Test Item Value Reference Range Interpretation Comments UA Glucose (test code Negative (08/24/14 1:24 = UA Glucose) PM) [facility] AND [id number] 19:24:00 Test Item Value Reference Range Interpretation Comments UA Protein (test code Negative (08/24/14 1:24 = UA Protein) PM) [facility] AND [id number] 19:24:00 Test Item Value Reference Range Interpretation Comments UA pH (test code = UA pH) 6.0 1 5.0-8.0 [facility] AND [id number] 19:24:00 Test Item Value Reference Range Interpretation Comments UA Spec Grav (test code *NA*(08/24/14 1:24 PM) = UA Spec Grav) [facility] AND [id number] 19:24:00 Test Item Value Reference Range Interpretation Comments UA Turbidity (test code = Clear (08/24/14 1:24 UA Turbidity) PM) [facility]2015-01-12 19:24:00 Test Item Value Reference Range Interpretation Comments Lipase Lvl (test code = Lipase Lvl) 104 73-393 [facility]2015-01-12 19:24:00 Test Item Value Reference Range Interpretation Comments eGFR (test code = eGFR) 109 [facility]2015-01-12 19:24:00 Test Item Value Reference Range Interpretation Comments Bili Total (test code = Bili Total) 0.6 0.2-1.3 [facility]2015-01-12 19:24:00 Test Item Value Reference Range Interpretation Comments Alk Phos (test code = Alk Phos) 72 39-136 [facility]2015-01-12 19:24:00 Test Item Value Reference Range Interpretation Comments Calcium Lvl (test code = Calcium Lvl) 8.8 8.5-10.5 [facility]2015-01-12 19:24:00 Test Item Value Reference Range Interpretation Comments CO2 (test code = CO2) 28 24-32 [facility]2015-01-12 19:24:00 Test Item Value Reference Range Interpretation Comments Chloride Lvl (test code = Chloride Lvl) 107 95-109 [facility]2015-01-12 19:24:00 Test Item Value Reference Range Interpretation Comments Potassium Lvl (test code = Potassium 3.9 3.5-5.1 Lvl) [facility]2015-01-12 19:24:00 Test Item Value Reference Range Interpretation Comments Glucose Lvl (test code = Glucose Lvl) 90 70-99 [facility]2015-01-12 19:24:00 Test Item Value Reference Range Interpretation Comments Sodium Lvl (test code = Sodium Lvl) 138 135-145 [facility]2015-01-12 19:24:00 Test Item Value Reference Range Interpretation Comments BUN (test code = BUN) 7 7-22 [facility]2015-01-12 19:24:00 Test Item Value Reference Range Interpretation Comments Creatinine Lvl (test code = Creatinine 0.7 0.5-1.4 Lvl) [facility]2015-01-12 19:24:00 Test Item Value Reference Range Interpretation Comments ALT (test code = ALT) 23 See_Comment [Auto mated message] The system which ge nerated this result transmit gaye reference range : <=65. The reference range was not used to interpr et this result as satish l/abnormal. [facility]2015-01-12 19:24:00 Test Item Value Reference Range Interpretation Comments AST (test code = AST) 12 See_Comment [Auto mated message] The system which ge nerated this result transmit gaye reference range : <=37. The reference range was not used to interpr et this result as satish l/abnormal. [facility]2015-01-12 19:24:00 Test Item Value Reference Range Interpretation Comments Albumin Lvl (test code = Albumin Lvl) 3.8 3.5-5.0 [facility]2015-01-12 19:24:00 Test Item Value Reference Range Interpretation Comments Total Protein (test code = Total 8.0 6.4-8.4 Protein) [facility]2015-01-12 19:24:00 Test Item Value Reference Range Interpretation Comments A/G Ratio (test code = A/G Ratio) 0.9 0.7-1.6 [facility]2015-01-12 19:24:00 Test Item Value Reference Range Interpretation Comments AGAP (test code = AGAP) 6.9 10.0-20.0 [facility]2015-01-12 19:24:00 Test Item Value Reference Range Interpretation Comments B/C Ratio (test code = B/C Ratio) 10 6-25 [facility]2015-01-12 19:24:00 Test Item Value Reference Range Interpretation Comments Globulin (test code = Globulin) 4.2 2.0-4.0 [facility]fh[facility]rcZRBZXQKBMWJJH1619-79-83 19:24:00 Test Item Value Reference Range Interpretation Comments S Preg (test code = S Negative *NA*(08/24/14 Preg) 1:24 PM) [facility]FrwnycuJINPNJIVDU2605-79-77 19:24:00 Test Item Value Reference Range Interpretation Comments WBC (test code = WBC) 11.3 3.7-10.4 [facility] CenterCzphccqDSGHHUNLEA5504-13-07 19:24:00 Test Item Value Reference Range Interpretation Comments RBC (test code = RBC) 4.75 4.20-5.40 [facility] CenterXzvkofgKPHGWPKTNU3107-80-59 19:24:00 Test Item Value Reference Range Interpretation Comments Platelet (test code = Platelet) 402 133-450 [facility] CenterXuxculdWWXJQCCWYL1315-68-02 19:24:00 Test Item Value Reference Range Interpretation Comments MCV (test code = MCV) 89.9 80.0-98.0 [facility] CenterNabwaupDTFPHVXIJK9919-39-19 19:24:00 Test Item Value Reference Range Interpretation Comments Hct (test code = Hct) 42.7 36.0-48.0 [facility] CenterFkewdwjCVBPYFRWNR9541-54-30 19:24:00 Test Item Value Reference Range Interpretation Comments Hgb (test code = Hgb) 14.5 12.0-16.0 [facility] CenterLixyewlSTSASIEPML5053-03-88 19:24:00 Test Item Value Reference Range Interpretation Comments RDW (test code = RDW) 13.5 11.5-14.5 [facility] CenterScpsfhkNWNVKOWKQB6180-14-74 19:24:00 Test Item Value Reference Range Interpretation Comments MCHC (test code = MCHC) 34.0 32.0-36.0 [facility] CenterZuuuovlTMGMBNYAGS8032-73-72 19:24:00 Test Item Value Reference Range Interpretation Comments MCH (test code = MCH) 30.6 pg 27.0-31.0 [facility] CenterNkmrrywRVHBWXSDAH7889-26-37 19:24:00 Test Item Value Reference Range Interpretation Comments MPV (test code = MPV) 8.1 7.4-10.4 [facility] CenterSlzpnzcVZMPYEYNCA5310-74-93 19:24:00 Test Item Value Reference Range Interpretation Comments Stomatocyte (test code = Stomatocyte) [facility] CenterDfcxrjaCHUPHRVCFE9452-59-86 19:24:00 Test Item Value Reference Range Interpretation Comments Basophils # (test code 0.1 See_Comment [Aut omated message] The = Basophils #) system which generated this result tra nsmitted reference range : <=0.2. The reference r ozzy was not used to int erpret this result as normal/abnormal . [facility] CenterNnniljnAUPKYDGGAE0510-20-96 19:24:00 Test Item Value Reference Range Interpretation Comments Eosinophils # (test code 0.2 See_Comment [A utomated message] The = Eosinophils #) system whic h generated this result tra nsmitted reference range : <=0.5. The reference r ozzy was not used to int erpret this result as normal/abnormal . [facility] CenterVzmyrvsRRZFUQAPIN5761-96-67 19:24:00 Test Item Value Reference Range Interpretation Comments Hypochrom (test code = 1+ (08/24/14 1:24 PM) Hypochrom) [facility] CenterYmoudngCDZMJLZSAH8592-42-28 19:24:00 Test Item Value Reference Range Interpretation Comments Lymphocytes # (test code = Lymphocytes 2.8 1.0-5.5 #) [facility] CenterZnlvoimVYEOSVWAQT0861-17-70 19:24:00 Test Item Value Reference Range Interpretation Comments Segs-Bands # (test code = Segs-Bands #) 8.1 1.5-8.1 [facility] CenterTjfllenRWGTSZZUAE3920-53-40 19:24:00 Test Item Value Reference Range Interpretation Comments Monocytes # (test code 0.2 See_Comment [Aut omated message] The = Monocytes #) system which generated this result tra nsmitted reference range : <=0.8. The reference r ozzy was not used to int erpret this result as normal/abnormal . [facility] CenterAztlhocXWKFQROPDY1090-80-01 19:24:00 Test Item Value Reference Range Interpretation Comments Lymphocytes (test code = Lymphocytes) 24.5 20.0-40.0 [facility] CenterDhqwmmkNRCVKORXRU8532-99-99 19:24:00 Test Item Value Reference Range Interpretation Comments Segs (test code = Segs) 71.8 45.0-75.0 [facility] CenterBiukjuvQJSWFURIMS4058-36-69 19:24:00 Test Item Value Reference Range Interpretation Comments Basophils (test code = 0.6 See_Comment [Aut omated message] The Basophils) system which ge nerated this result tra nsmitted reference range : <=1.0. The reference r ozzy was not used to int erpret this result as normal/abnormal . [facility] CenterMwuvvbrDYSNSLYCSP7689-73-73 19:24:00 Test Item Value Reference Range Interpretation Comments Monocytes (test code = Monocytes) 1.5 2.0-12.0 [facility] CenterWkiznbgXKEOKOXWPI2890-49-03 19:24:00 Test Item Value Reference Range Interpretation Comments Eosinophils (test code = 1.6 See_Comment [A utomated message] The Eosinophils) system which ge nerated this result tra nsmitted reference range : <=4.0. The reference r ozzy was not used to int erpret this result as normal/abnormal . [facility] CenterWttxbueOVMFDAIQJU3343-09-92 19:24:00 Test Item Value Reference Range Interpretation Comments Plt Morph (test code = Normal (08/24/14 1:24 Plt Morph) PM) [facility] AND [id number] 19:24:00 Test Item Value Reference Range Interpretation Comments UA Sq Epi (test code = UA Sq Occasional /LPF Epi) [facility] AND [id number] 19:24:00 Test Item Value Reference Range Interpretation Comments UA Bacteria (test code = UA Occasional /HPF Bacteria) [facility] AND [id number] 19:24:00 Test Item Value Reference Range Interpretation Comments UA Mucus (test code = None Seen (08/24/14 UA Mucus) 1:24 PM) [facility] AND [id number] 19:24:00 Test Item Value Reference Range Interpretation Comments UA WBC (test code = UA WBC) 0-2 /HPF [facility] AND [id number] 19:24:00 Test Item Value Reference Range Interpretation Comments UA RBC (test code = 0-2 /HPF See_Comment [Automa gaye message] The UA RBC) system which ge nerated this result tra nsmitted reference range : <=2. The reference range was not used to interpr et this result as staish l/abnormal. [facility] AND [id number] 19:24:00 Test Item Value Reference Range Interpretation Comments UA Leuk Est (test Moderate *ABN*(08/24/14 code = UA Leuk Est) 1:24 PM) [facility] AND [id number] 19:24:00 Test Item Value Reference Range Interpretation Comments UA Nitrite (test code Negative (08/24/14 1:24 = UA Nitrite) PM) [facility] AND [id number] 19:24:00 Test Item Value Reference Range Interpretation Comments UA Urobilinogen (test code = UA 0.2 0.1-1.0 Urobilinogen) [facility] AND [id number] 19:24:00 Test Item Value Reference Range Interpretation Comments UA Ketones (test code Negative *NA*(08/24/14 = UA Ketones) 1:24 PM) [facility] AND [id number] 19:24:00 Test Item Value Reference Range Interpretation Comments UA Blood (test code = Negative (08/24/14 1:24 UA Blood) PM) [facility] AND [id number] 19:24:00 Test Item Value Reference Range Interpretation Comments UA Bili (test code = Negative *NA*(08/24/14 UA Bili) 1:24 PM) [facility] AND [id number] 19:24:00 Test Item Value Reference Range Interpretation Comments UA Color (test code = Yellow *NA*(08/24/14 UA Color) 1:24 PM) [facility] AND [id number] 19:24:00 Test Item Value Reference Range Interpretation Comments UA Glucose (test code Negative (08/24/14 1:24 = UA Glucose) PM) [facility] AND [id number] 19:24:00 Test Item Value Reference Range Interpretation Comments UA Protein (test code Negative (08/24/14 1:24 = UA Protein) PM) [facility] AND [id number] 19:24:00 Test Item Value Reference Range Interpretation Comments UA pH (test code = UA pH) 6.0 1 5.0-8.0 [facility] AND [id number] 19:24:00 Test Item Value Reference Range Interpretation Comments UA Spec Grav (test code *NA*(08/24/14 1:24 PM) = UA Spec Grav) [facility] AND [id number] 19:24:00 Test Item Value Reference Range Interpretation Comments UA Turbidity (test code = Clear (08/24/14 1:24 UA Turbidity) PM) [facility]2015-01-12 19:24:00 Test Item Value Reference Range Interpretation Comments Lipase Lvl (test code = Lipase Lvl) 104 73-393 [facility]2015-01-12 19:24:00 Test Item Value Reference Range Interpretation Comments eGFR (test code = eGFR) 109 [facility]2015-01-12 19:24:00 Test Item Value Reference Range Interpretation Comments Bili Total (test code = Bili Total) 0.6 0.2-1.3 [facility]2015-01-12 19:24:00 Test Item Value Reference Range Interpretation Comments Alk Phos (test code = Alk Phos) 72 39-136 [facility]2015-01-12 19:24:00 Test Item Value Reference Range Interpretation Comments Calcium Lvl (test code = Calcium Lvl) 8.8 8.5-10.5 [facility]2015-01-12 19:24:00 Test Item Value Reference Range Interpretation Comments CO2 (test code = CO2) 28 24-32 [facility]2015-01-12 19:24:00 Test Item Value Reference Range Interpretation Comments Chloride Lvl (test code = Chloride Lvl) 107 95-109 [facility]2015-01-12 19:24:00 Test Item Value Reference Range Interpretation Comments Potassium Lvl (test code = Potassium 3.9 3.5-5.1 Lvl) [facility]2015-01-12 19:24:00 Test Item Value Reference Range Interpretation Comments Glucose Lvl (test code = Glucose Lvl) 90 70-99 [facility]2015-01-12 19:24:00 Test Item Value Reference Range Interpretation Comments Sodium Lvl (test code = Sodium Lvl) 138 135-145 [facility]2015-01-12 19:24:00 Test Item Value Reference Range Interpretation Comments BUN (test code = BUN) 7 7-22 [place] [id number] 19:24:00 Test Item Value Reference Range Interpretation Comments Creatinine Lvl (test code = Creatinine 0.7 0.5-1.4 Lvl) [facility]2015-01-12 19:24:00 Test Item Value Reference Range Interpretation Comments ALT (test code = ALT) 23 See_Comment [Auto mated message] The system which ge nerated this result transmit gaye reference range : <=65. The reference range was not used to interpr et this result as satish l/abnormal. [facility]2015-01-12 19:24:00 Test Item Value Reference Range Interpretation Comments AST (test code = AST) 12 See_Comment [Auto mated message] The system which ge nerated this result transmit gaye reference range : <=37. The reference range was not used to interpr et this result as satish l/abnormal. [facility]2015-01-12 19:24:00 Test Item Value Reference Range Interpretation Comments Albumin Lvl (test code = Albumin Lvl) 3.8 3.5-5.0 [facility]2015-01-12 19:24:00 Test Item Value Reference Range Interpretation Comments Total Protein (test code = Total 8.0 6.4-8.4 Protein) [facility]2015-01-12 19:24:00 Test Item Value Reference Range Interpretation Comments A/G Ratio (test code = A/G Ratio) 0.9 0.7-1.6 [place] [id number] 19:24:00 Test Item Value Reference Range Interpretation Comments AGAP (test code = AGAP) 6.9 10.0-20.0 [place] [id number] 19:24:00 Test Item Value Reference Range Interpretation Comments B/C Ratio (test code = B/C Ratio) 10 6-25 [id number] 19:24:00 Test Item Value Reference Range Interpretation Comments Globulin (test code = Globulin) 4.2 2.0-4.0 [facility]kswweyXFIFBWLKSLMIN0185-04-16 19:24:00 Test Item Value Reference Range Interpretation Comments S Preg (test code = S Negative *NA*(08/24/14 Preg) 1:24 PM) [facility]EmavzuxGUJRWXJOHH7986-08-19 19:24:00 Test Item Value Reference Range Interpretation Comments WBC (test code = WBC) 11.3 3.7-10.4 [facility] CenterHelatqcUIUIGMCCVN3175-83-99 19:24:00 Test Item Value Reference Range Interpretation Comments RBC (test code = RBC) 4.75 4.20-5.40 [facility] CenterPqhahtdGWGXUFWTIX7454-24-96 19:24:00 Test Item Value Reference Range Interpretation Comments Platelet (test code = Platelet) 402 133-450 [facility] CenterMafkfplRPGDWROGUK9271-98-38 19:24:00 Test Item Value Reference Range Interpretation Comments MCV (test code = MCV) 89.9 80.0-98.0 [facility] CenterDngadjtIAJOTCBVOV0895-18-84 19:24:00 Test Item Value Reference Range Interpretation Comments Hct (test code = Hct) 42.7 36.0-48.0 [facility] CenterKqxkfbdKVUFWQQHEV5246-31-69 19:24:00 Test Item Value Reference Range Interpretation Comments Hgb (test code = Hgb) 14.5 12.0-16.0 [facility] CenterQwerbenASEZUBGTYC6338-37-22 19:24:00 Test Item Value Reference Range Interpretation Comments RDW (test code = RDW) 13.5 11.5-14.5 [facility] CenterUpiscikDDXVZWJRQX9574-39-38 19:24:00 Test Item Value Reference Range Interpretation Comments MCHC (test code = MCHC) 34.0 32.0-36.0 [facility] CenterDatuojmVGXEEYDKFI3113-24-02 19:24:00 Test Item Value Reference Range Interpretation Comments MCH (test code = MCH) 30.6 pg 27.0-31.0 [facility] CenterWiidjpuADDWJCAUUB2351-53-33 19:24:00 Test Item Value Reference Range Interpretation Comments MPV (test code = MPV) 8.1 7.4-10.4 [facility] CenterNxrmpznIPEQGSYRMD9542-33-38 19:24:00 Test Item Value Reference Range Interpretation Comments Stomatocyte (test code = Stomatocyte) [facility] CenterZrzfosaGUGQVWQURQ0287-71-57 19:24:00 Test Item Value Reference Range Interpretation Comments Basophils # (test code 0.1 See_Comment [Aut omated message] The = Basophils #) system which generated this result tra nsmitted reference range : <=0.2. The reference r ozzy was not used to int erpret this result as normal/abnormal . [facility] CenterBdzpcmrZZCJDASUKM9310-28-45 19:24:00 Test Item Value Reference Range Interpretation Comments Eosinophils # (test code 0.2 See_Comment [A utomated message] The = Eosinophils #) system whic h generated this result tra nsmitted reference range : <=0.5. The reference r ozzy was not used to int erpret this result as normal/abnormal . [facility] CenterTivwsibIRMWZPFRVM2303-24-87 19:24:00 Test Item Value Reference Range Interpretation Comments Hypochrom (test code = 1+ (08/24/14 1:24 PM) Hypochrom) [facility] CenterYlgnetrUBTBZKAOMT0624-48-13 19:24:00 Test Item Value Reference Range Interpretation Comments Lymphocytes # (test code = Lymphocytes 2.8 1.0-5.5 #) [facility] CenterFdcdeqaZTJCXQTNYL2582-33-04 19:24:00 Test Item Value Reference Range Interpretation Comments Segs-Bands # (test code = Segs-Bands #) 8.1 1.5-8.1 [facility] CenterOrqqontEHFIDUICKS6764-93-88 19:24:00 Test Item Value Reference Range Interpretation Comments Monocytes # (test code 0.2 See_Comment [Aut omated message] The = Monocytes #) system which generated this result tra nsmitted reference range : <=0.8. The reference r ozzy was not used to int erpret this result as normal/abnormal . [facility] CenterSrbvnxeWRDPIAZSWU2315-78-78 19:24:00 Test Item Value Reference Range Interpretation Comments Lymphocytes (test code = Lymphocytes) 24.5 20.0-40.0 [facility] CenterDbsymovCDGIKMZLIH7591-22-99 19:24:00 Test Item Value Reference Range Interpretation Comments Segs (test code = Segs) 71.8 45.0-75.0 [id number] 19:24:00 Test Item Value Reference Range Interpretation Comments Basophils (test code = 0.6 See_Comment [Aut omated message] The Basophils) system which ge nerated this result tra nsmitted reference range : <=1.0. The reference r ozzy was not used to int erpret this result as normal/abnormal . [facility] Cent[id number] 19:24:00 Test Item Value Reference Range Interpretation Comments Monocytes (test code = Monocytes) 1.5 2.0-12.0 [facility] Cent[id number] 19:24:00 Test Item Value Reference Range Interpretation Comments Eosinophils (test code = 1.6 See_Comment [A utomated message] The Eosinophils) system which ge nerated this result tra nsmitted reference range : <=4.0. The reference r ozzy was not used to int erpret this result as normal/abnormal . [facility] Cent[id number] 19:24:00 Test Item Value Reference Range Interpretation Comments Plt Morph (test code = Normal (08/24/14 1:24 Plt Morph) PM) [facility] AND [id number] 19:24:00 Test Item Value Reference Range Interpretation Comments UA Sq Epi (test code = UA Sq Occasional /LPF Epi) [facility] AND [id number] 19:24:00 Test Item Value Reference Range Interpretation Comments UA Bacteria (test code = UA Occasional /HPF Bacteria) [facility] AND [id number] 19:24:00 Test Item Value Reference Range Interpretation Comments UA Mucus (test code = None Seen (08/24/14 UA Mucus) 1:24 PM) [facility] AND [id number] 19:24:00 Test Item Value Reference Range Interpretation Comments UA WBC (test code = UA WBC) 0-2 /HPF [facility] AND [id number] 19:24:00 Test Item Value Reference Range Interpretation Comments UA RBC (test code = 0-2 /HPF See_Comment [Automa gaye message] The UA RBC) system which ge nerated this result tra nsmitted reference range : <=2. The reference range was not used to interpr et this result as satish l/abnormal. [facility] AND [id number] 19:24:00 Test Item Value Reference Range Interpretation Comments UA Leuk Est (test Moderate *ABN*(08/24/14 code = UA Leuk Est) 1:24 PM) [facility] AND [id number] 19:24:00 Test Item Value Reference Range Interpretation Comments UA Nitrite (test code Negative (08/24/14 1:24 = UA Nitrite) PM) [facility] AND [id number] 19:24:00 Test Item Value Reference Range Interpretation Comments UA Urobilinogen (test code = UA 0.2 0.1-1.0 Urobilinogen) [facility] AND [id number] 19:24:00 Test Item Value Reference Range Interpretation Comments UA Ketones (test code Negative *NA*(08/24/14 = UA Ketones) 1:24 PM) [facility] AND [id number] 19:24:00 Test Item Value Reference Range Interpretation Comments UA Blood (test code = Negative (08/24/14 1:24 UA Blood) PM) [facility] AND [id number] 19:24:00 Test Item Value Reference Range Interpretation Comments UA Bili (test code = Negative *NA*(08/24/14 UA Bili) 1:24 PM) [facility] AND [id number] 19:24:00 Test Item Value Reference Range Interpretation Comments UA Color (test code = Yellow *NA*(08/24/14 UA Color) 1:24 PM) [facility] AND [id number] 19:24:00 Test Item Value Reference Range Interpretation Comments UA Glucose (test code Negative (08/24/14 1:24 = UA Glucose) PM) [facility] AND [id number] 19:24:00 Test Item Value Reference Range Interpretation Comments UA Protein (test code Negative (08/24/14 1:24 = UA Protein) PM) [facility] AND [id number] 19:24:00 Test Item Value Reference Range Interpretation Comments UA pH (test code = UA pH) 6.0 1 5.0-8.0 [facility] AND [id number] 19:24:00 Test Item Value Reference Range Interpretation Comments UA Spec Grav (test code *NA*(08/24/14 1:24 PM) = UA Spec Grav) [facility] AND [id number] 19:24:00 Test Item Value Reference Range Interpretation Comments UA Turbidity (test code = Clear (08/24/14 1:24 UA Turbidity) PM) [facility]2015-01-12 19:24:00 Test Item Value Reference Range Interpretation Comments Lipase Lvl (test code = Lipase Lvl) 104 73-393 [facility]2015-01-12 19:24:00 Test Item Value Reference Range Interpretation Comments eGFR (test code = eGFR) 109 [facility]2015-01-12 19:24:00 Test Item Value Reference Range Interpretation Comments Bili Total (test code = Bili Total) 0.6 0.2-1.3 [facility]2015-01-12 19:24:00 Test Item Value Reference Range Interpretation Comments Alk Phos (test code = Alk Phos) 72 39-136 [facility]2015-01-12 19:24:00 Test Item Value Reference Range Interpretation Comments Calcium Lvl (test code = Calcium Lvl) 8.8 8.5-10.5 [facility]2015-01-12 19:24:00 Test Item Value Reference Range Interpretation Comments CO2 (test code = CO2) 28 24-32 [facility]2015-01-12 19:24:00 Test Item Value Reference Range Interpretation Comments Chloride Lvl (test code = Chloride Lvl) 107 95-109 [facility]2015-01-12 19:24:00 Test Item Value Reference Range Interpretation Comments Potassium Lvl (test code = Potassium 3.9 3.5-5.1 Lvl) [facility]2015-01-12 19:24:00 Test Item Value Reference Range Interpretation Comments Glucose Lvl (test code = Glucose Lvl) 90 70-99 [facility]2015-01-12 19:24:00 Test Item Value Reference Range Interpretation Comments Sodium Lvl (test code = Sodium Lvl) 138 135-145 [facility]2015-01-12 19:24:00 Test Item Value Reference Range Interpretation Comments BUN (test code = BUN) 7 7-22 [facility]2015-01-12 19:24:00 Test Item Value Reference Range Interpretation Comments Creatinine Lvl (test code = Creatinine 0.7 0.5-1.4 Lvl) [facility]2015-01-12 19:24:00 Test Item Value Reference Range Interpretation Comments ALT (test code = ALT) 23 See_Comment [Auto mated message] The system which ge nerated this result transmit gaye reference range : <=65. The reference range was not used to interpr et this result as satish l/abnormal. [facility]2015-01-12 19:24:00 Test Item Value Reference Range Interpretation Comments AST (test code = AST) 12 See_Comment [Auto mated message] The system which ge nerated this result transmit gaye reference range : <=37. The reference range was not used to interpr et this result as satish l/abnormal. [facility]2015-01-12 19:24:00 Test Item Value Reference Range Interpretation Comments Albumin Lvl (test code = Albumin Lvl) 3.8 3.5-5.0 [facility]2015-01-12 19:24:00 Test Item Value Reference Range Interpretation Comments Total Protein (test code = Total 8.0 6.4-8.4 Protein) [facility]2015-01-12 19:24:00 Test Item Value Reference Range Interpretation Comments A/G Ratio (test code = A/G Ratio) 0.9 0.7-1.6 [facility]2015-01-12 19:24:00 Test Item Value Reference Range Interpretation Comments AGAP (test code = AGAP) 6.9 10.0-20.0 [facility]2015-01-12 19:24:00 Test Item Value Reference Range Interpretation Comments B/C Ratio (test code = B/C Ratio) 10 6-25 [facility]2015-01-12 19:24:00 Test Item Value Reference Range Interpretation Comments Globulin (test code = Globulin) 4.2 2.0-4.0 [facility]omFSRNRVISSAWBQ3229-17-68 19:24:00 Test Item Value Reference Range Interpretation Comments S Preg (test code = S Negative *NA*(08/24/14 Preg) 1:24 PM) [facility]YpzqwuyYCNHAEGGJS7434-86-66 19:24:00 Test Item Value Reference Range Interpretation Comments WBC (test code = WBC) 11.3 3.7-10.4 [facility] CenterGeueynjHFREDWUJDY8962-75-39 19:24:00 Test Item Value Reference Range Interpretation Comments RBC (test code = RBC) 4.75 4.20-5.40 [facility] CenterLqngqjfNYAAVDUEXQ7081-91-43 19:24:00 Test Item Value Reference Range Interpretation Comments Platelet (test code = Platelet) 402 133-450 [facility] CenterTythpizCVPTVCDBXS2377-10-46 19:24:00 Test Item Value Reference Range Interpretation Comments MCV (test code = MCV) 89.9 80.0-98.0 [facility] CenterUqrtttkMMTTVCEZEL4826-64-41 19:24:00 Test Item Value Reference Range Interpretation Comments Hct (test code = Hct) 42.7 36.0-48.0 [facility] CenterLcelxndXAQXLPAAUG1012-17-36 19:24:00 Test Item Value Reference Range Interpretation Comments Hgb (test code = Hgb) 14.5 12.0-16.0 [facility] CenterTjtqmoyKWCVBSDYHJ9521-32-01 19:24:00 Test Item Value Reference Range Interpretation Comments RDW (test code = RDW) 13.5 11.5-14.5 [facility] CenterNznjgupLRXYLVYJTT3199-04-89 19:24:00 Test Item Value Reference Range Interpretation Comments MCHC (test code = MCHC) 34.0 32.0-36.0 [facility] CenterEzykxhiQLGMAIWUMB8202-55-86 19:24:00 Test Item Value Reference Range Interpretation Comments MCH (test code = MCH) 30.6 pg 27.0-31.0 [facility] CenterHwntbneCNRFYTDTFS3432-23-99 19:24:00 Test Item Value Reference Range Interpretation Comments MPV (test code = MPV) 8.1 7.4-10.4 [facility] CenterXsbwecgGPWULDBJQB4338-02-77 19:24:00 Test Item Value Reference Range Interpretation Comments Stomatocyte (test code = Stomatocyte) Slight [facility] Cent[id number] 19:24:00 Test Item Value Reference Range Interpretation Comments Basophils # (test code 0.1 See_Comment [Aut omated message] The = Basophils #) system which generated this result tra nsmitted reference range : <=0.2. The reference r ozzy was not used to int erpret this result as normal/abnormal . [facility] CenterLohkrakJIOTBGNYTU0691-60-97 19:24:00 Test Item Value Reference Range Interpretation Comments Eosinophils # (test code 0.2 See_Comment [A utomated message] The = Eosinophils #) system whic h generated this result tra nsmitted reference range : <=0.5. The reference r ozzy was not used to int erpret this result as normal/abnormal . [facility] CenterAncdhbzPRLNJQYTQK2030-20-51 19:24:00 Test Item Value Reference Range Interpretation Comments Hypochrom (test code = 1+ (08/24/14 1:24 PM) Hypochrom) [facility] CenterOffoyqiZKCUYAPCXV0575-26-38 19:24:00 Test Item Value Reference Range Interpretation Comments Lymphocytes # (test code = Lymphocytes 2.8 1.0-5.5 #) [facility] CenterEckipesCALTTQCRGA7270-61-96 19:24:00 Test Item Value Reference Range Interpretation Comments Segs-Bands # (test code = Segs-Bands #) 8.1 1.5-8.1 [facility] Cent[id number] 19:24:00 Test Item Value Reference Range Interpretation Comments Monocytes # (test code 0.2 See_Comment [Aut omated message] The = Monocytes #) system which generated this result tra nsmitted reference range : <=0.8. The reference r ozzy was not used to int erpret this result as normal/abnormal . [facility] CenterOsqixqmFUWAJHXRUA9448-38-14 19:24:00 Test Item Value Reference Range Interpretation Comments Lymphocytes (test code = Lymphocytes) 24.5 20.0-40.0 [facility] CenterHzedsprTBOMTCTLBR6383-86-58 19:24:00 Test Item Value Reference Range Interpretation Comments Segs (test code = Segs) 71.8 45.0-75.0 [facility] CenterWzthmtxUODEGSKUUQ2627-79-75 19:24:00 Test Item Value Reference Range Interpretation Comments Basophils (test code = 0.6 See_Comment [Aut omated message] The Basophils) system which ge nerated this result tra nsmitted reference range : <=1.0. The reference r ozzy was not used to int erpret this result as normal/abnormal . [facility] CenterLknhqbeXEWFSDUKVN9343-27-22 19:24:00 Test Item Value Reference Range Interpretation Comments Monocytes (test code = Monocytes) 1.5 2.0-12.0 [facility] CenterOggagqzEYLGLHJXCN2748-74-16 19:24:00 Test Item Value Reference Range Interpretation Comments Eosinophils (test code = 1.6 See_Comment [A utomated message] The Eosinophils) system which ge nerated this result tra nsmitted reference range : <=4.0. The reference r ozzy was not used to int erpret this result as normal/abnormal . [facility] CenterOwqvyvzLVLZCBTFGS4395-04-44 19:24:00 Test Item Value Reference Range Interpretation Comments Plt Morph (test code = Normal (08/24/14 1:24 Plt Morph) PM) [facility] AND [id number] 19:24:00 Test Item Value Reference Range Interpretation Comments UA Sq Epi (test code = UA Sq Occasional /LPF Epi) [facility] AND [id number] 19:24:00 Test Item Value Reference Range Interpretation Comments UA Bacteria (test code = UA Occasional /HPF Bacteria) [facility] AND [id number] 19:24:00 Test Item Value Reference Range Interpretation Comments UA Mucus (test code = None Seen (08/24/14 UA Mucus) 1:24 PM) [facility] AND [id number] 19:24:00 Test Item Value Reference Range Interpretation Comments UA WBC (test code = UA WBC) 0-2 /HPF [facility] AND [id number] 19:24:00 Test Item Value Reference Range Interpretation Comments UA RBC (test code = 0-2 /HPF See_Comment [Automa gaye message] The UA RBC) system which ge nerated this result tra nsmitted reference range : <=2. The reference range was not used to interpr et this result as satish l/abnormal. [facility] AND [id number] 19:24:00 Test Item Value Reference Range Interpretation Comments UA Leuk Est (test Moderate *ABN*(08/24/14 code = UA Leuk Est) 1:24 PM) [facility] AND [id number] 19:24:00 Test Item Value Reference Range Interpretation Comments UA Nitrite (test code Negative (08/24/14 1:24 = UA Nitrite) PM) [facility] AND [id number] 19:24:00 Test Item Value Reference Range Interpretation Comments UA Urobilinogen (test code = UA 0.2 0.1-1.0 Urobilinogen) [facility] AND [id number] 19:24:00 Test Item Value Reference Range Interpretation Comments UA Ketones (test code Negative *NA*(08/24/14 = UA Ketones) 1:24 PM) [facility] AND [id number] 19:24:00 Test Item Value Reference Range Interpretation Comments UA Blood (test code = Negative (08/24/14 1:24 UA Blood) PM) [facility] AND [id number] 19:24:00 Test Item Value Reference Range Interpretation Comments UA Bili (test code = Negative *NA*(08/24/14 UA Bili) 1:24 PM) [facility] AND [id number] 19:24:00 Test Item Value Reference Range Interpretation Comments UA Color (test code = Yellow *NA*(08/24/14 UA Color) 1:24 PM) [facility] AND [id number] 19:24:00 Test Item Value Reference Range Interpretation Comments UA Glucose (test code Negative (08/24/14 1:24 = UA Glucose) PM) [facility] AND [id number] 19:24:00 Test Item Value Reference Range Interpretation Comments UA Protein (test code Negative (08/24/14 1:24 = UA Protein) PM) [facility] AND [id number] 19:24:00 Test Item Value Reference Range Interpretation Comments UA pH (test code = UA pH) 6.0 1 5.0-8.0 [facility] AND [id number] 19:24:00 Test Item Value Reference Range Interpretation Comments UA Spec Grav (test code *NA*(08/24/14 1:24 PM) = UA Spec Grav) [facility] AND [id number] 19:24:00 Test Item Value Reference Range Interpretation Comments UA Turbidity (test code = Clear (08/24/14 1:24 UA Turbidity) PM) [facility] [id number] 19:24:00 Test Item Value Reference Range Interpretation Comments Lipase Lvl (test code = Lipase Lvl) 104 73-393 [facility]2015-01-12 19:24:00 Test Item Value Reference Range Interpretation Comments eGFR (test code = eGFR) 109 [facility]2015-01-12 19:24:00 Test Item Value Reference Range Interpretation Comments Bili Total (test code = Bili Total) 0.6 0.2-1.3 [facility]2015-01-12 19:24:00 Test Item Value Reference Range Interpretation Comments Alk Phos (test code = Alk Phos) 72 39-136 [facility]2015-01-12 19:24:00 Test Item Value Reference Range Interpretation Comments Calcium Lvl (test code = Calcium Lvl) 8.8 8.5-10.5 [facility]2015-01-12 19:24:00 Test Item Value Reference Range Interpretation Comments CO2 (test code = CO2) 28 24-32 [facility]2015-01-12 19:24:00 Test Item Value Reference Range Interpretation Comments Chloride Lvl (test code = Chloride Lvl) 107 95-109 [facility]2015-01-12 19:24:00 Test Item Value Reference Range Interpretation Comments Potassium Lvl (test code = Potassium 3.9 3.5-5.1 Lvl) [facility]2015-01-12 19:24:00 Test Item Value Reference Range Interpretation Comments Glucose Lvl (test code = Glucose Lvl) 90 70-99 [facility]2015-01-12 19:24:00 Test Item Value Reference Range Interpretation Comments Sodium Lvl (test code = Sodium Lvl) 138 135-145 [facility]2015-01-12 19:24:00 Test Item Value Reference Range Interpretation Comments BUN (test code = BUN) 7 7-22 [facility]2015-01-12 19:24:00 Test Item Value Reference Range Interpretation Comments Creatinine Lvl (test code = Creatinine 0.7 0.5-1.4 Lvl) [facility]2015-01-12 19:24:00 Test Item Value Reference Range Interpretation Comments ALT (test code = ALT) 23 See_Comment [Auto mated message] The system which ge nerated this result transmit gaye reference range : <=65. The reference range was not used to interpr et this result as satish l/abnormal. [facility]2015-01-12 19:24:00 Test Item Value Reference Range Interpretation Comments AST (test code = AST) 12 See_Comment [Auto mated message] The system which ge nerated this result transmit gaye reference range : <=37. The reference range was not used to interpr et this result as satish l/abnormal. [facility]2015-01-12 19:24:00 Test Item Value Reference Range Interpretation Comments Albumin Lvl (test code = Albumin Lvl) 3.8 3.5-5.0 [facility]2015-01-12 19:24:00 Test Item Value Reference Range Interpretation Comments Total Protein (test code = Total 8.0 6.4-8.4 Protein) [facility]2015-01-12 19:24:00 Test Item Value Reference Range Interpretation Comments A/G Ratio (test code = A/G Ratio) 0.9 0.7-1.6 [facility]2015-01-12 19:24:00 Test Item Value Reference Range Interpretation Comments AGAP (test code = AGAP) 6.9 10.0-20.0 [facility]2015-01-12 19:24:00 Test Item Value Reference Range Interpretation Comments B/C Ratio (test code = B/C Ratio) 10 6-25 [facility]2015-01-12 19:24:00 Test Item Value Reference Range Interpretation Comments Globulin (test code = Globulin) 4.2 2.0-4.0 [facility]qgl[facility]ta[facility]XVIBBQJBZOPS4642-31-49 19:24:00 Test Item Value Reference Range Interpretation Comments S Preg (test code = S Negative *NA*(08/24/14 Preg) 1:24 PM) [facility]CtdzpmwHGAPOLLMUG8733-15-36 19:24:00 Test Item Value Reference Range Interpretation Comments WBC (test code = WBC) 11.3 3.7-10.4 [facility] CenterYofohqfOLZTISIPWA8602-90-11 19:24:00 Test Item Value Reference Range Interpretation Comments RBC (test code = RBC) 4.75 4.20-5.40 [facility] CenterNjrgcaqOHFZUGLASQ8571-75-72 19:24:00 Test Item Value Reference Range Interpretation Comments Platelet (test code = Platelet) 402 133-450 [facility] CenterJvpgwmgGKUODNUOGO3774-38-31 19:24:00 Test Item Value Reference Range Interpretation Comments MCV (test code = MCV) 89.9 80.0-98.0 [facility] CenterJujvkdfPNNNQBICTB3311-33-75 19:24:00 Test Item Value Reference Range Interpretation Comments Hct (test code = Hct) 42.7 36.0-48.0 [facility] CenterMcdklsaHCYFHZHADH2162-36-46 19:24:00 Test Item Value Reference Range Interpretation Comments Hgb (test code = Hgb) 14.5 12.0-16.0 [facility] CenterXfzvyryRWNIXHGRDK0197-90-76 19:24:00 Test Item Value Reference Range Interpretation Comments RDW (test code = RDW) 13.5 11.5-14.5 [facility] CenterBkgnzsdHRJAWAVFUE3305-81-30 19:24:00 Test Item Value Reference Range Interpretation Comments MCHC (test code = MCHC) 34.0 32.0-36.0 [facility] CenterWlzgrexEOLHMBJXJQ8606-72-00 19:24:00 Test Item Value Reference Range Interpretation Comments MCH (test code = MCH) 30.6 pg 27.0-31.0 [facility] CenterOayxihlVCFTMZQVHC0104-04-02 19:24:00 Test Item Value Reference Range Interpretation Comments MPV (test code = MPV) 8.1 7.4-10.4 [facility] CenterXloifdmNZBOWHXOVB5249-77-29 19:24:00 Test Item Value Reference Range Interpretation Comments Stomatocyte (test code = Stomatocyte) [facility]light [facility] CenterXbvvwerYAEBXDDXDI7301-12-70 19:24:00 Test Item Value Reference Range Interpretation Comments Basophils # (test code 0.1 See_Comment [Aut omated message] The = Basophils #) system which generated this result tra nsmitted reference range : <=0.2. The reference r ozzy was not used to int erpret this result as normal/abnormal . [facility] CenterFjoakhxVODNCPXDQA5935-21-88 19:24:00 Test Item Value Reference Range Interpretation Comments Eosinophils # (test code 0.2 See_Comment [A utomated message] The = Eosinophils #) system whic h generated this result tra nsmitted reference range : <=0.5. The reference r ozzy was not used to int erpret this result as normal/abnormal . [facility] CenterDwcimysYMODUDEVIA1100-16-03 19:24:00 Test Item Value Reference Range Interpretation Comments Hypochrom (test code = 1+ (08/24/14 1:24 PM) Hypochrom) [facility] CenterLisjdpvQEOHOQDMZF0063-69-09 19:24:00 Test Item Value Reference Range Interpretation Comments Lymphocytes # (test code = Lymphocytes 2.8 1.0-5.5 #) [facility] CenterUbyjcmxQXNAVYDNXD9898-90-43 19:24:00 Test Item Value Reference Range Interpretation Comments Segs-Bands # (test code = Segs-Bands #) 8.1 1.5-8.1 [facility] CenterPrpbcjsSRTAHWMPPA1960-27-31 19:24:00 Test Item Value Reference Range Interpretation Comments Monocytes # (test code 0.2 See_Comment [Aut omated message] The = Monocytes #) system which generated this result tra nsmitted reference range : <=0.8. The reference r ozzy was not used to int erpret this result as normal/abnormal . [facility] CenterCfqlubvXIOGSDQLIF5576-04-56 19:24:00 Test Item Value Reference Range Interpretation Comments Lymphocytes (test code = Lymphocytes) 24.5 20.0-40.0 [facility] CenterRwclnhvUAWWPPEYKN9241-01-21 19:24:00 Test Item Value Reference Range Interpretation Comments Segs (test code = Segs) 71.8 45.0-75.0 [facility] CenterXqkoqlaYEOHHFIFZM6208-68-09 19:24:00 Test Item Value Reference Range Interpretation Comments Basophils (test code = 0.6 See_Comment [Aut omated message] The Basophils) system which ge nerated this result tra nsmitted reference range : <=1.0. The reference r ozzy was not used to int erpret this result as normal/abnormal . [facility] CenterXufsydeKHNZJBAZIB8974-68-11 19:24:00 Test Item Value Reference Range Interpretation Comments Monocytes (test code = Monocytes) 1.5 2.0-12.0 [facility] CenterMbymhypDCMQVSQJFX2690-30-83 19:24:00 Test Item Value Reference Range Interpretation Comments Eosinophils (test code = 1.6 See_Comment [A utomated message] The Eosinophils) system which ge nerated this result tra nsmitted reference range : <=4.0. The reference r ozzy was not used to int erpret this result as normal/abnormal . [facility] CenterGnfaqrbABBOTLTCGF3499-91-58 19:24:00 Test Item Value Reference Range Interpretation Comments Plt Morph (test code = Normal (08/24/14 1:24 Plt Morph) PM) [facility] AND [id number] 19:24:00 Test Item Value Reference Range Interpretation Comments UA Sq Epi (test code = UA Sq Occasional /LPF Epi) [facility] AND [id number] 19:24:00 Test Item Value Reference Range Interpretation Comments UA Bacteria (test code = UA Occasional /HPF Bacteria) [facility] AND [id number] 19:24:00 Test Item Value Reference Range Interpretation Comments UA Mucus (test code = None Seen (08/24/14 UA Mucus) 1:24 PM) [facility] AND [id number] 19:24:00 Test Item Value Reference Range Interpretation Comments UA WBC (test code = UA WBC) 0-2 /HPF [facility] AND [id number] 19:24:00 Test Item Value Reference Range Interpretation Comments UA RBC (test code = 0-2 /HPF See_Comment [Automa gaye message] The UA RBC) system which ge nerated this result tra nsmitted reference range : <=2. The reference range was not used to interpr et this result as satish l/abnormal. [facility] AND [id number] 19:24:00 Test Item Value Reference Range Interpretation Comments UA Leuk Est (test Moderate *ABN*(08/24/14 code = UA Leuk Est) 1:24 PM) [facility] AND [id number] 19:24:00 Test Item Value Reference Range Interpretation Comments UA Nitrite (test code Negative (08/24/14 1:24 = UA Nitrite) PM) [facility] AND [id number] 19:24:00 Test Item Value Reference Range Interpretation Comments UA Urobilinogen (test code = UA 0.2 0.1-1.0 Urobilinogen) [facility] AND [id number] 19:24:00 Test Item Value Reference Range Interpretation Comments UA Ketones (test code Negative *NA*(08/24/14 = UA Ketones) 1:24 PM) [facility] AND [id number] 19:24:00 Test Item Value Reference Range Interpretation Comments UA Blood (test code = Negative (08/24/14 1:24 UA Blood) PM) [facility] AND [id number] 19:24:00 Test Item Value Reference Range Interpretation Comments UA Bili (test code = Negative *NA*(08/24/14 UA Bili) 1:24 PM) [facility] AND [id number] 19:24:00 Test Item Value Reference Range Interpretation Comments UA Color (test code = Yellow *NA*(08/24/14 UA Color) 1:24 PM) [facility] AND [id number] 19:24:00 Test Item Value Reference Range Interpretation Comments UA Glucose (test code Negative (08/24/14 1:24 = UA Glucose) PM) [facility] AND [id number] 19:24:00 Test Item Value Reference Range Interpretation Comments UA Protein (test code Negative (08/24/14 1:24 = UA Protein) PM) [facility] AND [id number] 19:24:00 Test Item Value Reference Range Interpretation Comments UA pH (test code = UA pH) 6.0 1 5.0-8.0 [facility] AND [id number] 19:24:00 Test Item Value Reference Range Interpretation Comments UA Spec Grav (test code *NA*(08/24/14 1:24 PM) = UA Spec Grav) [facility] AND [id number] 19:24:00 Test Item Value Reference Range Interpretation Comments UA Turbidity (test code = Clear (08/24/14 1:24 UA Turbidity) PM) [facility]2015-01-12 19:24:00 Test Item Value Reference Range Interpretation Comments Lipase Lvl (test code = Lipase Lvl) 104 73-393 [facility]2015-01-12 19:24:00 Test Item Value Reference Range Interpretation Comments eGFR (test code = eGFR) 109 [facility]2015-01-12 19:24:00 Test Item Value Reference Range Interpretation Comments Bili Total (test code = Bili Total) 0.6 0.2-1.3 [facility]2015-01-12 19:24:00 Test Item Value Reference Range Interpretation Comments Alk Phos (test code = Alk Phos) 72 39-136 [facility]2015-01-12 19:24:00 Test Item Value Reference Range Interpretation Comments Calcium Lvl (test code = Calcium Lvl) 8.8 8.5-10.5 [facility]2015-01-12 19:24:00 Test Item Value Reference Range Interpretation Comments CO2 (test code = CO2) 28 24-32 [facility]2015-01-12 19:24:00 Test Item Value Reference Range Interpretation Comments Chloride Lvl (test code = Chloride Lvl) 107 95-109 [facility]2015-01-12 19:24:00 Test Item Value Reference Range Interpretation Comments Potassium Lvl (test code = Potassium 3.9 3.5-5.1 Lvl) [facility]2015-01-12 19:24:00 Test Item Value Reference Range Interpretation Comments Glucose Lvl (test code = Glucose Lvl) 90 70-99 [facility]2015-01-12 19:24:00 Test Item Value Reference Range Interpretation Comments Sodium Lvl (test code = Sodium Lvl) 138 135-145 [facility]2015-01-12 19:24:00 Test Item Value Reference Range Interpretation Comments BUN (test code = BUN) 7 7-22 [facility]2015-01-12 19:24:00 Test Item Value Reference Range Interpretation Comments Creatinine Lvl (test code = Creatinine 0.7 0.5-1.4 Lvl) [facility]2015-01-12 19:24:00 Test Item Value Reference Range Interpretation Comments ALT (test code = ALT) 23 See_Comment [Auto mated message] The system which ge nerated this result transmit gaye reference range : <=65. The reference range was not used to interpr et this result as satish l/abnormal. [facility]2015-01-12 19:24:00 Test Item Value Reference Range Interpretation Comments AST (test code = AST) 12 See_Comment [Auto mated message] The system which ge nerated this result transmit gaye reference range : <=37. The reference range was not used to interpr et this result as satish l/abnormal. [facility]2015-01-12 19:24:00 Test Item Value Reference Range Interpretation Comments Albumin Lvl (test code = Albumin Lvl) 3.8 3.5-5.0 [place] [id number] 19:24:00 Test Item Value Reference Range Interpretation Comments Total Protein (test code = Total 8.0 6.4-8.4 Protein) [facility]2015-01-12 19:24:00 Test Item Value Reference Range Interpretation Comments A/G Ratio (test code = A/G Ratio) 0.9 0.7-1.6 [facility]2015-01-12 19:24:00 Test Item Value Reference Range Interpretation Comments AGAP (test code = AGAP) 6.9 10.0-20.0 [facility]2015-01-12 19:24:00 Test Item Value Reference Range Interpretation Comments B/C Ratio (test code = B/C Ratio) 10 6-25 [facility]2015-01-12 19:24:00 Test Item Value Reference Range Interpretation Comments Globulin (test code = Globulin) 4.2 2.0-4.0 [place] [id number] 19:24:00 Test Item Value Reference Range Interpretation Comments S Preg (test code = S Negative *NA*(08/24/14 Preg) 1:24 PM) [id number] 19:24:00 Test Item Value Reference Range Interpretation Comments WBC (test code = WBC) 11.3 3.7-10.4 [facility] C[id number] 19:24:00 Test Item Value Reference Range Interpretation Comments RBC (test code = RBC) 4.75 4.20-5.40 [facility] [id number] 19:24:00 Test Item Value Reference Range Interpretation Comments Platelet (test code = Platelet) 402 133-450 [facility] Cent[id number] 19:24:00 Test Item Value Reference Range Interpretation Comments MCV (test code = MCV) 89.9 80.0-98.0 [facility] CenterLwezvrdKQJTSMZSRB7706-17-71 19:24:00 Test Item Value Reference Range Interpretation Comments Hct (test code = Hct) 42.7 36.0-48.0 [facility] Cent[id number] 19:24:00 Test Item Value Reference Range Interpretation Comments Hgb (test code = Hgb) 14.5 12.0-16.0 [facility] C[id number] 19:24:00 Test Item Value Reference Range Interpretation Comments RDW (test code = RDW) 13.5 11.5-14.5 [facility] CenterTtyspjsUMCSVURWWJ8809-72-85 19:24:00 Test Item Value Reference Range Interpretation Comments MCHC (test code = MCHC) 34.0 32.0-36.0 [facility] CenterEuboyemHENTMEFAGA1197-00-94 19:24:00 Test Item Value Reference Range Interpretation Comments MCH (test code = MCH) 30.6 pg 27.0-31.0 [facility] Cent[id number] 19:24:00 Test Item Value Reference Range Interpretation Comments MPV (test code = MPV) 8.1 7.4-10.4 [facility] Cent[id number] 19:24:00 Test Item Value Reference Range Interpretation Comments Stomatocyte (test code = Stomatocyte) Slight [facility] [id number] 19:24:00 Test Item Value Reference Range Interpretation Comments Basophils # (test code 0.1 See_Comment [Aut omated message] The = Basophils #) system which generated this result tra nsmitted reference range : <=0.2. The reference r ozzy was not used to int erpret this result as normal/abnormal . [facility] CenterOuuucztLQIPRJEBRB0234-41-38 19:24:00 Test Item Value Reference Range Interpretation Comments Eosinophils # (test code 0.2 See_Comment [A utomated message] The = Eosinophils #) system whic h generated this result tra nsmitted reference range : <=0.5. The reference r ozzy was not used to int erpret this result as normal/abnormal . [facility] CenterKgxfmfwHTYFQOGYLZ5120-16-40 19:24:00 Test Item Value Reference Range Interpretation Comments Hypochrom (test code = 1+ (08/24/14 1:24 PM) Hypochrom) [facility] C[id number] 19:24:00 Test Item Value Reference Range Interpretation Comments Lymphocytes # (test code = Lymphocytes 2.8 1.0-5.5 #) [facility] Cent[id number] 19:24:00 Test Item Value Reference Range Interpretation Comments Segs-Bands # (test code = Segs-Bands #) 8.1 1.5-8.1 [facility] Cent[id number] 19:24:00 Test Item Value Reference Range Interpretation Comments Monocytes # (test code 0.2 See_Comment [Aut omated message] The = Monocytes #) system which generated this result tra nsmitted reference range : <=0.8. The reference r ozzy was not used to int erpret this result as normal/abnormal . [facility] Cent[id number] 19:24:00 Test Item Value Reference Range Interpretation Comments Lymphocytes (test code = Lymphocytes) 24.5 20.0-40.0 [facility] CenterTxjcwxwHZAMUTIZXG1604-67-95 19:24:00 Test Item Value Reference Range Interpretation Comments Segs (test code = Segs) 71.8 45.0-75.0 [facility] CenterWpannynHTSIJWEUDX6396-97-93 19:24:00 Test Item Value Reference Range Interpretation Comments Basophils (test code = 0.6 See_Comment [Aut omated message] The Basophils) system which ge nerated this result tra nsmitted reference range : <=1.0. The reference r ozzy was not used to int erpret this result as normal/abnormal . [facility] CenterPksdmsaLYHDQQEPOC5230-03-37 19:24:00 Test Item Value Reference Range Interpretation Comments Monocytes (test code = Monocytes) 1.5 2.0-12.0 [facility] Cent[id number] 19:24:00 Test Item Value Reference Range Interpretation Comments Eosinophils (test code = 1.6 See_Comment [A utomated message] The Eosinophils) system which ge nerated this result tra nsmitted reference range : <=4.0. The reference r ozzy was not used to int erpret this result as normal/abnormal . [facility] Cent[id number] 19:24:00 Test Item Value Reference Range Interpretation Comments Plt Morph (test code = Normal (08/24/14 1:24 Plt Morph) PM) [facility] AND [id number] 19:24:00 Test Item Value Reference Range Interpretation Comments UA Sq Epi (test code = UA Sq Occasional /LPF Epi) [facility] AND [id number] 19:24:00 Test Item Value Reference Range Interpretation Comments UA Bacteria (test code = UA Occasional /HPF Bacteria) [facility] AND [id number] 19:24:00 Test Item Value Reference Range Interpretation Comments UA Mucus (test code = None Seen (08/24/14 UA Mucus) 1:24 PM) [facility] AND [id number] 19:24:00 Test Item Value Reference Range Interpretation Comments UA WBC (test code = UA WBC) 0-2 /HPF [facility] AND [id number] 19:24:00 Test Item Value Reference Range Interpretation Comments UA RBC (test code = 0-2 /HPF See_Comment [Automa gaye message] The UA RBC) system which ge nerated this result tra nsmitted reference range : <=2. The reference range was not used to interpr et this result as satish l/abnormal. [facility] AND [id number] 19:24:00 Test Item Value Reference Range Interpretation Comments UA Leuk Est (test Moderate *ABN*(08/24/14 code = UA Leuk Est) 1:24 PM) [facility] AND [id number] 19:24:00 Test Item Value Reference Range Interpretation Comments UA Nitrite (test code Negative (08/24/14 1:24 = UA Nitrite) PM) [facility] AND [id number] 19:24:00 Test Item Value Reference Range Interpretation Comments UA Urobilinogen (test code = UA 0.2 0.1-1.0 Urobilinogen) [facility] AND [id number] 19:24:00 Test Item Value Reference Range Interpretation Comments UA Ketones (test code Negative *NA*(08/24/14 = UA Ketones) 1:24 PM) [facility] AND [id number] 19:24:00 Test Item Value Reference Range Interpretation Comments UA Blood (test code = Negative (08/24/14 1:24 UA Blood) PM) [facility] AND [id number] 19:24:00 Test Item Value Reference Range Interpretation Comments UA Bili (test code = Negative *NA*(08/24/14 UA Bili) 1:24 PM) [facility] AND [id number] 19:24:00 Test Item Value Reference Range Interpretation Comments UA Color (test code = Yellow *NA*(08/24/14 UA Color) 1:24 PM) [facility] AND [id number] 19:24:00 Test Item Value Reference Range Interpretation Comments UA Glucose (test code Negative (08/24/14 1:24 = UA Glucose) PM) [facility] AND [id number] 19:24:00 Test Item Value Reference Range Interpretation Comments UA Protein (test code Negative (08/24/14 1:24 = UA Protein) PM) [facility] AND [id number] 19:24:00 Test Item Value Reference Range Interpretation Comments UA pH (test code = UA pH) 6.0 1 5.0-8.0 [facility] AND [id number] 19:24:00 Test Item Value Reference Range Interpretation Comments UA Spec Grav (test code *NA*(08/24/14 1:24 PM) = UA Spec Grav) [facility] AND [id number] 19:24:00 Test Item Value Reference Range Interpretation Comments UA Turbidity (test code = Clear (08/24/14 1:24 UA Turbidity) PM) [facility]2015-01-12 19:24:00 Test Item Value Reference Range Interpretation Comments Lipase Lvl (test code = Lipase Lvl) 104 73-393 [facility]2015-01-12 19:24:00 Test Item Value Reference Range Interpretation Comments eGFR (test code = eGFR) 109 [facility]2015-01-12 19:24:00 Test Item Value Reference Range Interpretation Comments Bili Total (test code = Bili Total) 0.6 0.2-1.3 [facility]2015-01-12 19:24:00 Test Item Value Reference Range Interpretation Comments Alk Phos (test code = Alk Phos) 72 39-136 [facility]2015-01-12 19:24:00 Test Item Value Reference Range Interpretation Comments Calcium Lvl (test code = Calcium Lvl) 8.8 8.5-10.5 [facility]2015-01-12 19:24:00 Test Item Value Reference Range Interpretation Comments CO2 (test code = CO2) 28 24-32 [facility]2015-01-12 19:24:00 Test Item Value Reference Range Interpretation Comments Chloride Lvl (test code = Chloride Lvl) 107 95-109 [facility]2015-01-12 19:24:00 Test Item Value Reference Range Interpretation Comments Potassium Lvl (test code = Potassium 3.9 3.5-5.1 Lvl) [facility]2015-01-12 19:24:00 Test Item Value Reference Range Interpretation Comments Glucose Lvl (test code = Glucose Lvl) 90 70-99 [place] [id number] 19:24:00 Test Item Value Reference Range Interpretation Comments Sodium Lvl (test code = Sodium Lvl) 138 135-145 [facility]2015-01-12 19:24:00 Test Item Value Reference Range Interpretation Comments BUN (test code = BUN) 7 7-22 [facility]2015-01-12 19:24:00 Test Item Value Reference Range Interpretation Comments Creatinine Lvl (test code = Creatinine 0.7 0.5-1.4 Lvl) [facility]2015-01-12 19:24:00 Test Item Value Reference Range Interpretation Comments ALT (test code = ALT) 23 See_Comment [Auto mated message] The system which ge nerated this result transmit gaye reference range : <=65. The reference range was not used to interpr et this result as satish l/abnormal. [facility]2015-01-12 19:24:00 Test Item Value Reference Range Interpretation Comments AST (test code = AST) 12 See_Comment [Auto mated message] The system which ge nerated this result transmit gaye reference range : <=37. The reference range was not used to interpr et this result as satish l/abnormal. [facility]2015-01-12 19:24:00 Test Item Value Reference Range Interpretation Comments Albumin Lvl (test code = Albumin Lvl) 3.8 3.5-5.0 [facility]2015-01-12 19:24:00 Test Item Value Reference Range Interpretation Comments Total Protein (test code = Total 8.0 6.4-8.4 Protein) [facility]2015-01-12 19:24:00 Test Item Value Reference Range Interpretation Comments A/G Ratio (test code = A/G Ratio) 0.9 0.7-1.6 [facility]2015-01-12 19:24:00 Test Item Value Reference Range Interpretation Comments AGAP (test code = AGAP) 6.9 10.0-20.0 [facility] [id number] 19:24:00 Test Item Value Reference Range Interpretation Comments B/C Ratio (test code = B/C Ratio) 10 6-25 [facility] [id number] 19:24:00 Test Item Value Reference Range Interpretation Comments Globulin (test code = Globulin) 4.2 2.0-4.0 [facility]MW[facility]FM[facility]NVLA3162-09-60 19:24:00 Test Item Value Reference Range Interpretation Comments S Preg (test code = S Negative *NA*(08/24/14 Preg) 1:24 PM) [facility]BdqgvpkKQGMLMNVYZ3958-16-44 19:24:00 Test Item Value Reference Range Interpretation Comments WBC (test code = WBC) 11.3 3.7-10.4 [facility] CenterOlgnckdPIIMNTMYSL2700-80-18 19:24:00 Test Item Value Reference Range Interpretation Comments RBC (test code = RBC) 4.75 4.20-5.40 [facility]IovqmjqPLHJYFEGYD6784-73-82 19:24:00 Test Item Value Reference Range Interpretation Comments Platelet (test code = Platelet) 402 133-450 [facility] CenterZrncfoeMVZJZIYMAE5546-91-27 19:24:00 Test Item Value Reference Range Interpretation Comments MCV (test code = MCV) 89.9 80.0-98.0 [facility] CenterWkoiakcKBHMIOALFT4580-68-01 19:24:00 Test Item Value Reference Range Interpretation Comments Hct (test code = Hct) 42.7 36.0-48.0 [facility] CenterBqnvkocZHKNIDLFVT7025-33-97 19:24:00 Test Item Value Reference Range Interpretation Comments Hgb (test code = Hgb) 14.5 12.0-16.0 [facility] CenterGgelgraODPBOEWXRS1435-83-16 19:24:00 Test Item Value Reference Range Interpretation Comments RDW (test code = RDW) 13.5 11.5-14.5 [facility] CenterGfhllqeZWPYCKGMVG6270-43-06 19:24:00 Test Item Value Reference Range Interpretation Comments MCHC (test code = MCHC) 34.0 32.0-36.0 [facility] CenterTtvqhmgDZTZZGPFDV8834-38-89 19:24:00 Test Item Value Reference Range Interpretation Comments MCH (test code = MCH) 30.6 pg 27.0-31.0 [facility] CenterVzakjbuRLXLBFXZFQ9408-24-01 19:24:00 Test Item Value Reference Range Interpretation Comments MPV (test code = MPV) 8.1 7.4-10.4 [facility] Cent[id number] 19:24:00 Test Item Value Reference Range Interpretation Comments Stomatocyte (test code = Stomatocyte) [facility] Cent[id number] 19:24:00 Test Item Value Reference Range Interpretation Comments Basophils # (test code 0.1 See_Comment [Aut omated message] The = Basophils #) system which generated this result tra nsmitted reference range : <=0.2. The reference r ozzy was not used to int erpret this result as normal/abnormal . [facility] CenterLnfdqfjQKUASGXXMK3975-40-22 19:24:00 Test Item Value Reference Range Interpretation Comments Eosinophils # (test code 0.2 See_Comment [A utomated message] The = Eosinophils #) system whic h generated this result tra nsmitted reference range : <=0.5. The reference r ozzy was not used to int erpret this result as normal/abnormal . [facility] CenterIcjybweSDQWFXICQH9739-28-35 19:24:00 Test Item Value Reference Range Interpretation Comments Hypochrom (test code = 1+ (08/24/14 1:24 PM) Hypochrom) [facility] CenterDjyoyejPKPQMWORCW6095-05-15 19:24:00 Test Item Value Reference Range Interpretation Comments Lymphocytes # (test code = Lymphocytes 2.8 1.0-5.5 #) [facility] CenterNjexthgWWSQMXOKTF5338-96-83 19:24:00 Test Item Value Reference Range Interpretation Comments Segs-Bands # (test code = Segs-Bands #) 8.1 1.5-8.1 [facility] Cent[id number] 19:24:00 Test Item Value Reference Range Interpretation Comments Monocytes # (test code 0.2 See_Comment [Aut omated message] The = Monocytes #) system which generated this result tra nsmitted reference range : <=0.8. The reference r ozzy was not used to int erpret this result as normal/abnormal . [facility] CenterLihxxymWNEJKIJIBX6210-94-46 19:24:00 Test Item Value Reference Range Interpretation Comments Lymphocytes (test code = Lymphocytes) 24.5 20.0-40.0 [facility] CenterCmmnzenAZOMZZMKCO3959-12-66 19:24:00 Test Item Value Reference Range Interpretation Comments Segs (test code = Segs) 71.8 45.0-75.0 [facility] CenterDggmcjtYYOFBRDKPM9670-30-69 19:24:00 Test Item Value Reference Range Interpretation Comments Basophils (test code = 0.6 See_Comment [Aut omated message] The Basophils) system which ge nerated this result tra nsmitted reference range : <=1.0. The reference r ozzy was not used to int erpret this result as normal/abnormal . [facility] CenterNneazsuJSXURFDGSE2836-64-68 19:24:00 Test Item Value Reference Range Interpretation Comments Monocytes (test code = Monocytes) 1.5 2.0-12.0 [facility] CenterUevoqybSRXUQUTBJR7592-77-84 19:24:00 Test Item Value Reference Range Interpretation Comments Eosinophils (test code = 1.6 See_Comment [A utomated message] The Eosinophils) system which ge nerated this result tra nsmitted reference range : <=4.0. The reference r ozzy was not used to int erpret this result as normal/abnormal . [facility] CenterEpiibeyNMTFTZXEST4824-64-20 19:24:00 Test Item Value Reference Range Interpretation Comments Plt Morph (test code = Normal (08/24/14 1:24 Plt Morph) PM) [facility] AND [id number] 19:24:00 Test Item Value Reference Range Interpretation Comments UA Sq Epi (test code = UA Sq Occasional /LPF Epi) [facility] AND [id number] 19:24:00 Test Item Value Reference Range Interpretation Comments UA Bacteria (test code = UA Occasional /HPF Bacteria) [facility] AND [id number] 19:24:00 Test Item Value Reference Range Interpretation Comments UA Mucus (test code = None Seen (08/24/14 UA Mucus) 1:24 PM) [facility] AND [id number] 19:24:00 Test Item Value Reference Range Interpretation Comments UA WBC (test code = UA WBC) 0-2 /HPF [facility] AND [id number] 19:24:00 Test Item Value Reference Range Interpretation Comments UA RBC (test code = 0-2 /HPF See_Comment [Automa gaye message] The UA RBC) system which ge nerated this result tra nsmitted reference range : <=2. The reference range was not used to interpr et this result as satish l/abnormal. [facility] AND [id number] 19:24:00 Test Item Value Reference Range Interpretation Comments UA Leuk Est (test Moderate *ABN*(08/24/14 code = UA Leuk Est) 1:24 PM) [facility] AND [id number] 19:24:00 Test Item Value Reference Range Interpretation Comments UA Nitrite (test code Negative (08/24/14 1:24 = UA Nitrite) PM) [facility] AND [id number] 19:24:00 Test Item Value Reference Range Interpretation Comments UA Urobilinogen (test code = UA 0.2 0.1-1.0 Urobilinogen) [facility] AND [id number] 19:24:00 Test Item Value Reference Range Interpretation Comments UA Ketones (test code Negative *NA*(08/24/14 = UA Ketones) 1:24 PM) [facility] AND [id number] 19:24:00 Test Item Value Reference Range Interpretation Comments UA Blood (test code = Negative (08/24/14 1:24 UA Blood) PM) [facility] AND [id number] 19:24:00 Test Item Value Reference Range Interpretation Comments UA Bili (test code = Negative *NA*(08/24/14 UA Bili) 1:24 PM) [facility] AND [id number] 19:24:00 Test Item Value Reference Range Interpretation Comments UA Color (test code = Yellow *NA*(08/24/14 UA Color) 1:24 PM) [facility] AND [id number] 19:24:00 Test Item Value Reference Range Interpretation Comments UA Glucose (test code Negative (08/24/14 1:24 = UA Glucose) PM) [facility] AND [id number] 19:24:00 Test Item Value Reference Range Interpretation Comments UA Protein (test code Negative (08/24/14 1:24 = UA Protein) PM) [facility] AND [id number] 19:24:00 Test Item Value Reference Range Interpretation Comments UA pH (test code = UA pH) 6.0 1 5.0-8.0 [facility] AND [id number] 19:24:00 Test Item Value Reference Range Interpretation Comments UA Spec Grav (test code *NA*(08/24/14 1:24 PM) = UA Spec Grav) [facility] AND [id number] 19:24:00 Test Item Value Reference Range Interpretation Comments UA Turbidity (test code = Clear (08/24/14 1:24 UA Turbidity) PM) [facility]2015-01-12 19:24:00 Test Item Value Reference Range Interpretation Comments Lipase Lvl (test code = Lipase Lvl) 104 73-393 [facility]2015-01-12 19:24:00 Test Item Value Reference Range Interpretation Comments eGFR (test code = eGFR) 109 [facility]2015-01-12 19:24:00 Test Item Value Reference Range Interpretation Comments Bili Total (test code = Bili Total) 0.6 0.2-1.3 [facility]2015-01-12 19:24:00 Test Item Value Reference Range Interpretation Comments Alk Phos (test code = Alk Phos) 72 39-136 [facility]2015-01-12 19:24:00 Test Item Value Reference Range Interpretation Comments Calcium Lvl (test code = Calcium Lvl) 8.8 8.5-10.5 [facility]2015-01-12 19:24:00 Test Item Value Reference Range Interpretation Comments CO2 (test code = CO2) 28 24-32 [facility]2015-01-12 19:24:00 Test Item Value Reference Range Interpretation Comments Chloride Lvl (test code = Chloride Lvl) 107 95-109 [facility]2015-01-12 19:24:00 Test Item Value Reference Range Interpretation Comments Potassium Lvl (test code = Potassium 3.9 3.5-5.1 Lvl) [facility]2015-01-12 19:24:00 Test Item Value Reference Range Interpretation Comments Glucose Lvl (test code = Glucose Lvl) 90 70-99 [facility]2015-01-12 19:24:00 Test Item Value Reference Range Interpretation Comments Sodium Lvl (test code = Sodium Lvl) 138 135-145 [facility]2015-01-12 19:24:00 Test Item Value Reference Range Interpretation Comments BUN (test code = BUN) 7 7-22 [facility]2015-01-12 19:24:00 Test Item Value Reference Range Interpretation Comments Creatinine Lvl (test code = Creatinine 0.7 0.5-1.4 Lvl) [facility]2015-01-12 19:24:00 Test Item Value Reference Range Interpretation Comments ALT (test code = ALT) 23 See_Comment [Auto mated message] The system which ge nerated this result transmit gaye reference range : <=65. The reference range was not used to interpr et this result as satish l/abnormal. [facility]2015-01-12 19:24:00 Test Item Value Reference Range Interpretation Comments AST (test code = AST) 12 See_Comment [Auto mated message] The system which ge nerated this result transmit gaye reference range : <=37. The reference range was not used to interpr et this result as satish l/abnormal. [facility]2015-01-12 19:24:00 Test Item Value Reference Range Interpretation Comments Albumin Lvl (test code = Albumin Lvl) 3.8 3.5-5.0 [facility]2015-01-12 19:24:00 Test Item Value Reference Range Interpretation Comments Total Protein (test code = Total 8.0 6.4-8.4 Protein) [facility]2015-01-12 19:24:00 Test Item Value Reference Range Interpretation Comments A/G Ratio (test code = A/G Ratio) 0.9 0.7-1.6 [facility]2015-01-12 19:24:00 Test Item Value Reference Range Interpretation Comments AGAP (test code = AGAP) 6.9 10.0-20.0 [facility]2015-01-12 19:24:00 Test Item Value Reference Range Interpretation Comments B/C Ratio (test code = B/C Ratio) 10 6-25 [facility]2015-01-12 19:24:00 Test Item Value Reference Range Interpretation Comments Globulin (test code = Globulin) 4.2 2.0-4.0 [facility]OZVKBYLAMKGGW2850-37-55 19:24:00 Test Item Value Reference Range Interpretation Comments S Preg (test code = S Negative *NA*(1/12/15 Preg) 1:24 PM) [facility]tp[facility]NMGFYYQPN7225[facility]-53 19:24:00 Test Item Value Reference Range Interpretation Comments WBC (test code = WBC) 11.3 3.7-10.4 [facility] CenterCeqrwzoCAHOFXYLJV2065-08-09 19:24:00 Test Item Value Reference Range Interpretation Comments RBC (test code = RBC) 4.75 4.20-5.40 [facility] CenterTgoevxiQVEFSDNTGZ7985-56-98 19:24:00 Test Item Value Reference Range Interpretation Comments Platelet (test code = Platelet) 402 133-450 [facility] CenterRasqewjVHNDFYELZD0792-30-82 19:24:00 Test Item Value Reference Range Interpretation Comments MCV (test code = MCV) 89.9 80.0-98.0 [facility] CenterOlspvgfECJRHYTYUE9265-87-97 19:24:00 Test Item Value Reference Range Interpretation Comments Hct (test code = Hct) 42.7 36.0-48.0 [facility] CenterWuessvbWTDYHCKPWI6063-94-74 19:24:00 Test Item Value Reference Range Interpretation Comments Hgb (test code = Hgb) 14.5 12.0-16.0 [facility] CenterKjpjvmtJUYJCVCCVO0960-10-57 19:24:00 Test Item Value Reference Range Interpretation Comments RDW (test code = RDW) 13.5 11.5-14.5 [facility] CenterPmuoknnHMSABROEPE9696-23-94 19:24:00 Test Item Value Reference Range Interpretation Comments MCHC (test code = MCHC) 34.0 32.0-36.0 [facility] CenterBcwzjxbBYRWWTBKRS5182-74-02 19:24:00 Test Item Value Reference Range Interpretation Comments MCH (test code = MCH) 30.6 pg 27.0-31.0 [facility] CenterFoophvoRYDQBBLJRR1371-85-07 19:24:00 Test Item Value Reference Range Interpretation Comments MPV (test code = MPV) 8.1 7.4-10.4 [facility] CenterIjhpetqNLICMNAXES6400-18-03 19:24:00 Test Item Value Reference Range Interpretation Comments Stomatocyte (test code = Stomatocyte) [facility]IpvvdwfIATMTVYJEY7013-13-09 19:24:00 Test Item Value Reference Range Interpretation Comments Basophils # (test code 0.1 See_Comment [Aut omated message] The = Basophils #) system which generated this result tra nsmitted reference range : <=0.2. The reference r ozzy was not used to int erpret this result as normal/abnormal . [facility] CenterRbkgsdyFBZSBCIMUX9466-82-45 19:24:00 Test Item Value Reference Range Interpretation Comments Eosinophils # (test code 0.2 See_Comment [A utomated message] The = Eosinophils #) system whic h generated this result tra nsmitted reference range : <=0.5. The reference r ozzy was not used to int erpret this result as normal/abnormal . [facility] CenterLommoxzTUHRGKAIZP0435-34-74 19:24:00 Test Item Value Reference Range Interpretation Comments Hypochrom (test code = 1+ (08/24/14 1:24 PM) Hypochrom) [facility] CenterPjutvuwRTPYIXNWQW3397-38-65 19:24:00 Test Item Value Reference Range Interpretation Comments Lymphocytes # (test code = Lymphocytes 2.8 1.0-5.5 #) [facility] CenterSxtwbfmGKVCMCPKXE6917-60-36 19:24:00 Test Item Value Reference Range Interpretation Comments Segs-Bands # (test code = Segs-Bands #) 8.1 1.5-8.1 [facility] CenterKqoaufeLANPRIEHRY4540-22-00 19:24:00 Test Item Value Reference Range Interpretation Comments Monocytes # (test code 0.2 See_Comment [Aut omated message] The = Monocytes #) system which generated this result tra nsmitted reference range : <=0.8. The reference r ozzy was not used to int erpret this result as normal/abnormal . [facility] CenterWkqcwwbBNQGXLIGVZ8797-51-12 19:24:00 Test Item Value Reference Range Interpretation Comments Lymphocytes (test code = Lymphocytes) 24.5 20.0-40.0 [facility] CenterAdnjhhxUTUVIPGWRD6925-54-14 19:24:00 Test Item Value Reference Range Interpretation Comments Segs (test code = Segs) 71.8 45.0-75.0 [facility] CenterGvvomebSEPIBTKAJC1619-72-53 19:24:00 Test Item Value Reference Range Interpretation Comments Basophils (test code = 0.6 See_Comment [Aut omated message] The Basophils) system which ge nerated this result tra nsmitted reference range : <=1.0. The reference r ozzy was not used to int erpret this result as normal/abnormal . [facility] CenterVfatrahGIUKQVMIYC2496-07-04 19:24:00 Test Item Value Reference Range Interpretation Comments Monocytes (test code = Monocytes) 1.5 2.0-12.0 [facility] CenterLvhhyuhEHCPGCWQVY5468-70-68 19:24:00 Test Item Value Reference Range Interpretation Comments Eosinophils (test code = 1.6 See_Comment [A utomated message] The Eosinophils) system which ge nerated this result tra nsmitted reference range : <=4.0. The reference r ozzy was not used to int erpret this result as normal/abnormal . [facility] CenterDbzqrlmGBWXEHTJWC6249-74-34 19:24:00 Test Item Value Reference Range Interpretation Comments Plt Morph (test code = Normal (08/24/14 1:24 Plt Morph) PM) [facility] AND [id number] 19:24:00 Test Item Value Reference Range Interpretation Comments UA Sq Epi (test code = UA Sq Occasional /LPF Epi) [facility] AND [id number] 19:24:00 Test Item Value Reference Range Interpretation Comments UA Bacteria (test code = UA Occasional /HPF Bacteria) [facility] AND [id number] 19:24:00 Test Item Value Reference Range Interpretation Comments UA Mucus (test code = None Seen (08/24/14 UA Mucus) 1:24 PM) [facility] AND [id number] 19:24:00 Test Item Value Reference Range Interpretation Comments UA WBC (test code = UA WBC) 0-2 /HPF [facility] AND [id number] 19:24:00 Test Item Value Reference Range Interpretation Comments UA RBC (test code = 0-2 /HPF See_Comment [Automa gaye message] The UA RBC) system which ge nerated this result tra nsmitted reference range : <=2. The reference range was not used to interpr et this result as satish l/abnormal. [facility] AND [id number] 19:24:00 Test Item Value Reference Range Interpretation Comments UA Leuk Est (test Moderate *ABN*(08/24/14 code = UA Leuk Est) 1:24 PM) [facility] AND [id number] 19:24:00 Test Item Value Reference Range Interpretation Comments UA Nitrite (test code Negative (08/24/14 1:24 = [facility] Nitrite) PM) [facility] [id number] 19:24:00 Test Item Value Reference Range Interpretation Comments UA Urobilinogen (test code = UA 0.2 0.1-1.0 Urobilinogen) [facility] [id number] 19:24:00 Test Item Value Reference Range Interpretation Comments UA Ketones (test code Negative *NA*(08/24/14 = UA Ketones) 1:24 PM) [facility] [id number] 19:24:00 Test Item Value Reference Range Interpretation Comments UA Blood (test code = Negative (08/24/14 1:24 UA Blood) PM) [facility] [id number] 19:24:00 Test Item Value Reference Range Interpretation Comments UA Bili (test code = Negative *NA*(08/24/14 UA Bili) 1:24 PM) [facility] [id number] 19:24:00 Test Item Value Reference Range Interpretation Comments UA Color (test code = Yellow *NA*(08/24/14 UA Color) 1:24 PM) [facility] [id number] 19:24:00 Test Item Value Reference Range Interpretation Comments UA Glucose (test code Negative (08/24/14 1:24 = UA Glucose) PM) [facility] [id number] 19:24:00 Test Item Value Reference Range Interpretation Comments UA Protein (test code Negative (08/24/14 1:24 = UA Protein) PM) [facility] [id number] 19:24:00 Test Item Value Reference Range Interpretation Comments UA pH (test code = UA pH) 6.0 1 5.0-8.0 [facility] [id number] 19:24:00 Test Item Value Reference Range Interpretation Comments UA Spec Grav (test code *NA*(08/24/14 1:24 PM) = UA Spec Grav) [facility] [id number] 19:24:00 Test Item Value Reference Range Interpretation Comments UA Turbidity (test code = Clear (08/24/14 1:24 UA Turbidity) PM) [facility] [id number] 19:24:00 Test Item Value Reference Range Interpretation Comments Lipase Lvl (test code = Lipase Lvl) 104 73-393 [facility]2015-01-12 19:24:00 Test Item Value Reference Range Interpretation Comments eGFR (test code = eGFR) 109 [facility]2015-01-12 19:24:00 Test Item Value Reference Range Interpretation Comments Bili Total (test code = Bili Total) 0.6 0.2-1.3 [facility]2015-01-12 19:24:00 Test Item Value Reference Range Interpretation Comments Alk Phos (test code = Alk Phos) 72 39-136 [facility]2015-01-12 19:24:00 Test Item Value Reference Range Interpretation Comments Calcium Lvl (test code = Calcium Lvl) 8.8 8.5-10.5 [facility]2015-01-12 19:24:00 Test Item Value Reference Range Interpretation Comments CO2 (test code = CO2) 28 24-32 [facility]2015-01-12 19:24:00 Test Item Value Reference Range Interpretation Comments Chloride Lvl (test code = Chloride Lvl) 107 95-109 [facility]2015-01-12 19:24:00 Test Item Value Reference Range Interpretation Comments Potassium Lvl (test code = Potassium 3.9 3.5-5.1 Lvl) [facility]2015-01-12 19:24:00 Test Item Value Reference Range Interpretation Comments Glucose Lvl (test code = Glucose Lvl) 90 70-99 [facility]2015-01-12 19:24:00 Test Item Value Reference Range Interpretation Comments Sodium Lvl (test code = Sodium Lvl) 138 135-145 [facility]2015-01-12 19:24:00 Test Item Value Reference Range Interpretation Comments BUN (test code = BUN) 7 7-22 [facility]2015-01-12 19:24:00 Test Item Value Reference Range Interpretation Comments Creatinine Lvl (test code = Creatinine 0.7 0.5-1.4 Lvl) [facility]2015-01-12 19:24:00 Test Item Value Reference Range Interpretation Comments ALT (test code = ALT) 23 See_Comment [Auto mated message] The system which ge nerated this result transmit gaye reference range : <=65. The reference range was not used to interpr et this result as satish l/abnormal. [facility]2015-01-12 19:24:00 Test Item Value Reference Range Interpretation Comments AST (test code = AST) 12 See_Comment [Auto mated message] The system which ge nerated this result transmit gaye reference range : <=37. The reference range was not used to interpr et this result as satish l/abnormal. [facility]2015-01-12 19:24:00 Test Item Value Reference Range Interpretation Comments Albumin Lvl (test code = Albumin Lvl) 3.8 3.5-5.0 [facility]2015-01-12 19:24:00 Test Item Value Reference Range Interpretation Comments Total Protein (test code = Total 8.0 6.4-8.4 Protein) [facility]2015-01-12 19:24:00 Test Item Value Reference Range Interpretation Comments A/G Ratio (test code = A/G Ratio) 0.9 0.7-1.6 [facility]2015-01-12 19:24:00 Test Item Value Reference Range Interpretation Comments AGAP (test code = AGAP) 6.9 10.0-20.0 [facility]2015-01-12 19:24:00 Test Item Value Reference Range Interpretation Comments B/C Ratio (test code = B/C Ratio) 10 6-25 [facility]2015-01-12 19:24:00 Test Item Value Reference Range Interpretation Comments Globulin (test code = Globulin) 4.2 2.0-4.0 [id number] 19:24:00 Test Item Value Reference Range Interpretation Comments S Preg (test code = S Negative *NA*(08/24/14 Preg) 1:24 PM) [facility]TrcoxokWEKUHDCILS8323-41-41 19:24:00 Test Item Value Reference Range Interpretation Comments WBC (test code = WBC) 11.3 3.7-10.4 [facility] CenterMwufuxcXRCPSZMEXJ8908-48-18 19:24:00 Test Item Value Reference Range Interpretation Comments RBC (test code = RBC) 4.75 4.20-5.40 [facility] CenterKbqmhehWTNFDEIZWD6963-20-54 19:24:00 Test Item Value Reference Range Interpretation Comments Platelet (test code = Platelet) 402 133-450 [facility] CenterAhmgkhyPOZGLKUKFZ1986-96-41 19:24:00 Test Item Value Reference Range Interpretation Comments MCV (test code = MCV) 89.9 80.0-98.0 [facility] CenterOjljnerAYMUBGUZNA0355-06-11 19:24:00 Test Item Value Reference Range Interpretation Comments Hct (test code = Hct) 42.7 36.0-48.0 [facility] CenterRrtwqmwVUYCPSBLSN9248-61-84 19:24:00 Test Item Value Reference Range Interpretation Comments Hgb (test code = Hgb) 14.5 12.0-16.0 [facility] CenterUolezppSHDYKNONOT9445-02-44 19:24:00 Test Item Value Reference Range Interpretation Comments RDW (test code = RDW) 13.5 11.5-14.5 [facility] CenterYgbnaaqZGQIOOQMFS4303-07-22 19:24:00 Test Item Value Reference Range Interpretation Comments MCHC (test code = MCHC) 34.0 32.0-36.0 [facility] CenterKmjnimpBZIBYHFFHC9619-35-08 19:24:00 Test Item Value Reference Range Interpretation Comments MCH (test code = MCH) 30.6 pg 27.0-31.0 [facility] CenterRpmwajtICFQOOJBWJ0979-10-20 19:24:00 Test Item Value Reference Range Interpretation Comments MPV (test code = MPV) 8.1 7.4-10.4 [facility] CenterVjeccazIVACSLMZNN8378-74-13 19:24:00 Test Item Value Reference Range Interpretation Comments Stomatocyte (test code = Stomatocyte) [facility] CenterPdzfwdlVVXBGXPLBQ8719-69-41 19:24:00 Test Item Value Reference Range Interpretation Comments Basophils # (test code 0.1 See_Comment [Aut omated message] The = Basophils #) system which generated this result tra nsmitted reference range : <=0.2. The reference r ozzy was not used to int erpret this result as normal/abnormal . [facility] CenterMwvhlkrECZMPCRJQJ1304-20-35 19:24:00 Test Item Value Reference Range Interpretation Comments Eosinophils # (test code 0.2 See_Comment [A utomated message] The = Eosinophils #) system whic h generated this result tra nsmitted reference range : <=0.5. The reference r ozzy was not used to int erpret this result as normal/abnormal . [facility] CenterNhezgzvPRCPDDBWZF3235-56-45 19:24:00 Test Item Value Reference Range Interpretation Comments Hypochrom (test code = 1+ (08/24/14 1:24 PM) Hypochrom) [facility] CenterDsscxxxAQYSVMRMYI0838-07-85 19:24:00 Test Item Value Reference Range Interpretation Comments Lymphocytes # (test code = Lymphocytes 2.8 1.0-5.5 #) [facility] CenterIensxpsZUCIPDBONZ3384-40-49 19:24:00 Test Item Value Reference Range Interpretation Comments Segs-Bands # (test code = Segs-Bands #) 8.1 1.5-8.1 [facility] Cent[id number] 19:24:00 Test Item Value Reference Range Interpretation Comments Monocytes # (test code 0.2 See_Comment [Aut omated message] The = Monocytes #) system which generated this result tra nsmitted reference range : <=0.8. The reference r ozzy was not used to int erpret this result as normal/abnormal . [facility] CenterCwonirvHVPVUVQAMJ2521-90-41 19:24:00 Test Item Value Reference Range Interpretation Comments Lymphocytes (test code = Lymphocytes) 24.5 20.0-40.0 [facility] CenterTktmfuwKYBDPRGGVL8524-29-57 19:24:00 Test Item Value Reference Range Interpretation Comments Segs (test code = Segs) 71.8 45.0-75.0 [facility] CenterUmbbuogAJIOREZCAH7521-48-71 19:24:00 Test Item Value Reference Range Interpretation Comments Basophils (test code = 0.6 See_Comment [Aut omated message] The Basophils) system which ge nerated this result tra nsmitted reference range : <=1.0. The reference r ozzy was not used to int erpret this result as normal/abnormal . [facility] CenterHscrbqeLXVKOJZPBW1654-25-57 19:24:00 Test Item Value Reference Range Interpretation Comments Monocytes (test code = Monocytes) 1.5 2.0-12.0 [facility] CenterHzvxnaiPUIMMCQQML3367-62-45 19:24:00 Test Item Value Reference Range Interpretation Comments Eosinophils (test code = 1.6 See_Comment [A utomated message] The Eosinophils) system which ge nerated this result tra nsmitted reference range : <=4.0. The reference r ozzy was not used to int erpret this result as normal/abnormal . [facility] 19:24:00 Test Item Value Reference Range Interpretation Comments Plt Morph (test code = Normal (08/24/14 1:24 Plt Morph) PM) [facility] AND [id number] 19:24:00 Test Item Value Reference Range Interpretation Comments UA Sq Epi (test code = UA Sq Occasional /LPF Epi) [facility] AND [id number] 19:24:00 Test Item Value Reference Range Interpretation Comments UA Bacteria (test code = UA Occasional /HPF Bacteria) [facility] AND [id number] 19:24:00 Test Item Value Reference Range Interpretation Comments UA Mucus (test code = None Seen (08/24/14 UA Mucus) 1:24 PM) [facility] AND [id number] 19:24:00 Test Item Value Reference Range Interpretation Comments UA WBC (test code = UA WBC) 0-2 /HPF [facility] AND [id number] 19:24:00 Test Item Value Reference Range Interpretation Comments UA RBC (test code = 0-2 /HPF See_Comment [Automa gaye message] The UA RBC) system which ge nerated this result tra nsmitted reference range : <=2. The reference range was not used to interpr et this result as satish l/abnormal. [facility] AND [id number] 19:24:00 Test Item Value Reference Range Interpretation Comments UA Leuk Est (test Moderate *ABN*(08/24/14 code = UA Leuk Est) 1:24 PM) [facility] AND [id number] 19:24:00 Test Item Value Reference Range Interpretation Comments UA Nitrite (test code Negative (08/24/14 1:24 = UA Nitrite) PM) [facility] AND [id number] 19:24:00 Test Item Value Reference Range Interpretation Comments UA Urobilinogen (test code = UA 0.2 0.1-1.0 Urobilinogen) [facility] AND [id number] 19:24:00 Test Item Value Reference Range Interpretation Comments UA Ketones (test code Negative *NA*(08/24/14 = UA Ketones) 1:24 PM) [facility] AND [id number] 19:24:00 Test Item Value Reference Range Interpretation Comments UA Blood (test code = Negative (08/24/14 1:24 UA Blood) PM) [facility] AND [id number] 19:24:00 Test Item Value Reference Range Interpretation Comments UA Bili (test code = Negative *NA*(08/24/14 UA Bili) 1:24 PM) [facility] AND [id number] 19:24:00 Test Item Value Reference Range Interpretation Comments UA Color (test code = Yellow *NA*(08/24/14 UA Color) 1:24 PM) [facility] AND [id number] 19:24:00 Test Item Value Reference Range Interpretation Comments UA Glucose (test code Negative (08/24/14 1:24 = UA Glucose) PM) [facility] AND [id number] 19:24:00 Test Item Value Reference Range Interpretation Comments UA Protein (test code Negative (08/24/14 1:24 = UA Protein) PM) [facility] AND [id number] 19:24:00 Test Item Value Reference Range Interpretation Comments UA pH (test code = UA pH) 6.0 1 5.0-8.0 [facility] AND [id number] 19:24:00 Test Item Value Reference Range Interpretation Comments UA Spec Grav (test code *NA*(08/24/14 1:24 PM) = UA Spec Grav) [facility] AND [id number] 19:24:00 Test Item Value Reference Range Interpretation Comments UA Turbidity (test code = Clear (08/24/14 1:24 UA Turbidity) PM) [facility] [id number] 19:24:00 Test Item Value Reference Range Interpretation Comments Lipase Lvl (test code = Lipase Lvl) 104 73-393 [facility] [id number] 19:24:00 Test Item Value Reference Range Interpretation Comments eGFR (test code = eGFR) 109 [facility]2015-01-12 19:24:00 Test Item Value Reference Range Interpretation Comments Bili Total (test code = Bili Total) 0.6 0.2-1.3 [facility]2015-01-12 19:24:00 Test Item Value Reference Range Interpretation Comments Alk Phos (test code = Alk Phos) 72 39-136 [facility]2015-01-12 19:24:00 Test Item Value Reference Range Interpretation Comments Calcium Lvl (test code = Calcium Lvl) 8.8 8.5-10.5 [facility]2015-01-12 19:24:00 Test Item Value Reference Range Interpretation Comments CO2 (test code = CO2) 28 24-32 [place] [id number] 19:24:00 Test Item Value Reference Range Interpretation Comments Chloride Lvl (test code = Chloride Lvl) 107 95-109 [place] [id number] 19:24:00 Test Item Value Reference Range Interpretation Comments Potassium Lvl (test code = Potassium 3.9 3.5-5.1 Lvl) [facility]2015-01-12 19:24:00 Test Item Value Reference Range Interpretation Comments Glucose Lvl (test code = Glucose Lvl) 90 70-99 [facility]2015-01-12 19:24:00 Test Item Value Reference Range Interpretation Comments Sodium Lvl (test code = Sodium Lvl) 138 135-145 [facility]2015-01-12 19:24:00 Test Item Value Reference Range Interpretation Comments BUN (test code = BUN) 7 7-22 [facility]2015-01-12 19:24:00 Test Item Value Reference Range Interpretation Comments Creatinine Lvl (test code = Creatinine 0.7 0.5-1.4 Lvl) [facility]2015-01-12 19:24:00 Test Item Value Reference Range Interpretation Comments ALT (test code = ALT) 23 See_Comment [Auto mated message] The system which ge nerated this result transmit gaye reference range : <=65. The reference range was not used to interpr et this result as satish l/abnormal. [facility]2015-01-12 19:24:00 Test Item Value Reference Range Interpretation Comments AST (test code = AST) 12 See_Comment [Auto mated message] The system which ge nerated this result transmit gaye reference range : <=37. The reference range was not used to interpr et this result as satish l/abnormal. [facility]2015-01-12 19:24:00 Test Item Value Reference Range Interpretation Comments Albumin Lvl (test code = Albumin Lvl) 3.8 3.5-5.0 [facility]2015-01-12 19:24:00 Test Item Value Reference Range Interpretation Comments Total Protein (test code = Total 8.0 6.4-8.4 Protein) [facility]2015-01-12 19:24:00 Test Item Value Reference Range Interpretation Comments A/G Ratio (test code = A/G Ratio) 0.9 0.7-1.6 [facility]2015-01-12 19:24:00 Test Item Value Reference Range Interpretation Comments AGAP (test code = AGAP) 6.9 10.0-20.0 [facility]2015-01-12 19:24:00 Test Item Value Reference Range Interpretation Comments B/C Ratio (test code = B/C Ratio) 10 6-25 [facility]2015-01-12 19:24:00 Test Item Value Reference Range Interpretation Comments Globulin (test code = Globulin) 4.2 2.0-4.0 [id number] 19:24:00 Test Item Value Reference Range Interpretation Comments S Preg (test code = S Negative *NA*(08/24/14 Preg) 1:24 PM) [facility]PV[facility]KAGR6829[facility]-97 19:24:00 Test Item Value Reference Range Interpretation Comments WBC (test code = WBC) 11.3 3.7-10.4 [facility]SfumshjCXYTYCOUCM0878-38-35 19:24:00 Test Item Value Reference Range Interpretation Comments RBC (test code = RBC) 4.75 4.20-5.40 [facility] CenterFvqinkiVUCDYKOSTC3563-76-06 19:24:00 Test Item Value Reference Range Interpretation Comments Platelet (test code = Platelet) 402 133-450 [facility] CenterJuqdtzlOYKVGIRPAY9835-98-50 19:24:00 Test Item Value Reference Range Interpretation Comments MCV (test code = MCV) 89.9 80.0-98.0 [facility]JwnvfmaCWUPBQVCFE6719-03-84 19:24:00 Test Item Value Reference Range Interpretation Comments Hct (test code = Hct) 42.7 36.0-48.0 [facility]KgrdrlfHQLUGDKUXN5786-50-02 19:24:00 Test Item Value Reference Range Interpretation Comments Hgb (test code = Hgb) 14.5 12.0-16.0 [facility] CenterDlpewkjQJDRFGZPWN4549-83-59 19:24:00 Test Item Value Reference Range Interpretation Comments RDW (test code = RDW) 13.5 11.5-14.5 [facility] CenterVxkbbdrPKKIDTIDVE6805-23-48 19:24:00 Test Item Value Reference Range Interpretation Comments MCHC (test code = MCHC) 34.0 32.0-36.0 [facility] CenterJchzefvQYAFLNUCAU7528-06-38 19:24:00 Test Item Value Reference Range Interpretation Comments MCH (test code = MCH) 30.6 pg 27.0-31.0 [facility] CenterFglhmibQGZWYGMKKV3613-55-00 19:24:00 Test Item Value Reference Range Interpretation Comments MPV (test code = MPV) 8.1 7.4-10.4 [facility] CenterWpcsoviEPYXQNHYVF0348-73-72 19:24:00 Test Item Value Reference Range Interpretation Comments Stomatocyte (test code = Stomatocyte) Slight [facility] CenterSoepiedAHWJELDTMD9379-84-30 19:24:00 Test Item Value Reference Range Interpretation Comments Basophils # (test code 0.1 See_Comment [Aut omated message] The = Basophils #) system which generated this result tra nsmitted reference range : <=0.2. The reference r ozzy was not used to int erpret this result as normal/abnormal . [facility] CenterBblmxmlTSXZMKHERN3454-80-14 19:24:00 Test Item Value Reference Range Interpretation Comments Eosinophils # (test code 0.2 See_Comment [A utomated message] The = Eosinophils #) system whic h generated this result tra nsmitted reference range : <=0.5. The reference r ozzy was not used to int erpret this result as normal/abnormal . [facility] CenterFtqqzqfUVCHHNWMBP4755-27-45 19:24:00 Test Item Value Reference Range Interpretation Comments Hypochrom (test code = 1+ (08/24/14 1:24 PM) Hypochrom) [facility] CenterSetmbpnNDXLODSNXW1846-73-77 19:24:00 Test Item Value Reference Range Interpretation Comments Lymphocytes # (test code = Lymphocytes 2.8 1.0-5.5 #) [facility] CenterBuiuyfbYRWQLETTGW3433-27-78 19:24:00 Test Item Value Reference Range Interpretation Comments Segs-Bands # (test code = Segs-Bands #) 8.1 1.5-8.1 [facility] CenterPbsccjkWQFMMDJRAL1300-57-94 19:24:00 Test Item Value Reference Range Interpretation Comments Monocytes # (test code 0.2 See_Comment [Aut omated message] The = Monocytes #) system which generated this result tra nsmitted reference range : <=0.8. The reference r ozzy was not used to int erpret this result as normal/abnormal . [facility] CenterCmizivvVOZDXSCXOE7218-71-74 19:24:00 Test Item Value Reference Range Interpretation Comments Lymphocytes (test code = Lymphocytes) 24.5 20.0-40.0 [facility] CenterQllhnesNIEZKJKCIX9247-93-29 19:24:00 Test Item Value Reference Range Interpretation Comments Segs (test code = Segs) 71.8 45.0-75.0 [facility] CenterPytqjnqXWRMPFGXXO5273-77-84 19:24:00 Test Item Value Reference Range Interpretation Comments Basophils (test code = 0.6 See_Comment [Aut omated message] The Basophils) system which ge nerated this result tra nsmitted reference range : <=1.0. The reference r ozzy was not used to int erpret this result as normal/abnormal . [facility] CenterIdoiwtzBWSZCDBGCN9364-44-45 19:24:00 Test Item Value Reference Range Interpretation Comments Monocytes (test code = Monocytes) 1.5 2.0-12.0 [facility] CenterIpymsbeRLZEBPWUIR5920-84-24 19:24:00 Test Item Value Reference Range Interpretation Comments Eosinophils (test code = 1.6 See_Comment [A utomated message] The Eosinophils) system which ge nerated this result tra nsmitted reference range : <=4.0. The reference r ozzy was not used to int erpret this result as normal/abnormal . [facility] CenterJcrtmziFYHVQZXYUM5110-67-30 19:24:00 Test Item Value Reference Range Interpretation Comments Plt Morph (test code = Normal (08/24/14 1:24 Plt Morph) PM) [facility] AND [id number] 19:24:00 Test Item Value Reference Range Interpretation Comments UA Sq Epi (test code = UA Sq Occasional /LPF Epi) [facility] AND [id number] 19:24:00 Test Item Value Reference Range Interpretation Comments UA Bacteria (test code = UA Occasional /HPF Bacteria) [facility] AND [id number] 19:24:00 Test Item Value Reference Range Interpretation Comments UA Mucus (test code = None Seen (08/24/14 UA Mucus) 1:24 PM) [facility] AND [id number] 19:24:00 Test Item Value Reference Range Interpretation Comments UA WBC (test code = UA WBC) 0-2 /HPF [facility] AND [id number] 19:24:00 Test Item Value Reference Range Interpretation Comments UA RBC (test code = 0-2 /HPF See_Comment [Automa gaye message] The UA RBC) system which ge nerated this result tra nsmitted reference range : <=2. The reference range was not used to interpr et this result as satish l/abnormal. [facility] AND [id number] 19:24:00 Test Item Value Reference Range Interpretation Comments UA Leuk Est (test Moderate *ABN*(08/24/14 code = UA Leuk Est) 1:24 PM) [facility] AND [id number] 19:24:00 Test Item Value Reference Range Interpretation Comments UA Nitrite (test code Negative (08/24/14 1:24 = UA Nitrite) PM) [facility] AND [id number] 19:24:00 Test Item Value Reference Range Interpretation Comments UA Urobilinogen (test code = UA 0.2 0.1-1.0 Urobilinogen) [facility] AND [id number] 19:24:00 Test Item Value Reference Range Interpretation Comments UA Ketones (test code Negative *NA*(08/24/14 = UA Ketones) 1:24 PM) [facility] AND [id number] 19:24:00 Test Item Value Reference Range Interpretation Comments UA Blood (test code = Negative (08/24/14 1:24 UA Blood) PM) [facility] AND [id number] 19:24:00 Test Item Value Reference Range Interpretation Comments UA Bili (test code = Negative *NA*(08/24/14 UA Bili) 1:24 PM) [facility] AND [id number] 19:24:00 Test Item Value Reference Range Interpretation Comments UA Color (test code = Yellow *NA*(08/24/14 UA Color) 1:24 PM) [facility] AND [id number] 19:24:00 Test Item Value Reference Range Interpretation Comments UA Glucose (test code Negative (08/24/14 1:24 = UA Glucose) PM) [facility] AND [id number] 19:24:00 Test Item Value Reference Range Interpretation Comments UA Protein (test code Negative (08/24/14 1:24 = UA Protein) PM) [facility] AND [id number] 19:24:00 Test Item Value Reference Range Interpretation Comments UA pH (test code = UA pH) 6.0 1 5.0-8.0 [facility] AND [id number] 19:24:00 Test Item Value Reference Range Interpretation Comments UA Spec Grav (test code *NA*(08/24/14 1:24 PM) = UA Spec Grav) [facility] AND [id number] 19:24:00 Test Item Value Reference Range Interpretation Comments UA Turbidity (test code = Clear (08/24/14 1:24 UA Turbidity) PM) [facility]2015-01-12 19:24:00 Test Item Value Reference Range Interpretation Comments Lipase Lvl (test code = Lipase Lvl) 104 73-393 [facility]2015-01-12 19:24:00 Test Item Value Reference Range Interpretation Comments eGFR (test code = eGFR) 109 [facility]2015-01-12 19:24:00 Test Item Value Reference Range Interpretation Comments Bili Total (test code = Bili Total) 0.6 0.2-1.3 [facility]2015-01-12 19:24:00 Test Item Value Reference Range Interpretation Comments Alk Phos (test code = Alk Phos) 72 39-136 [facility]2015-01-12 19:24:00 Test Item Value Reference Range Interpretation Comments Calcium Lvl (test code = Calcium Lvl) 8.8 8.5-10.5 [facility]2015-01-12 19:24:00 Test Item Value Reference Range Interpretation Comments CO2 (test code = CO2) 28 24-32 [facility]2015-01-12 19:24:00 Test Item Value Reference Range Interpretation Comments Chloride Lvl (test code = Chloride Lvl) 107 95-109 [facility]2015-01-12 19:24:00 Test Item Value Reference Range Interpretation Comments Potassium Lvl (test code = Potassium 3.9 3.5-5.1 Lvl) [facility]2015-01-12 19:24:00 Test Item Value Reference Range Interpretation Comments Glucose Lvl (test code = Glucose Lvl) 90 70-99 [facility]2015-01-12 19:24:00 Test Item Value Reference Range Interpretation Comments Sodium Lvl (test code = Sodium Lvl) 138 135-145 [facility]2015-01-12 19:24:00 Test Item Value Reference Range Interpretation Comments BUN (test code = BUN) 7 7-22 [facility]2015-01-12 19:24:00 Test Item Value Reference Range Interpretation Comments Creatinine Lvl (test code = Creatinine 0.7 0.5-1.4 Lvl) [facility]2015-01-12 19:24:00 Test Item Value Reference Range Interpretation Comments ALT (test code = ALT) 23 See_Comment [Auto mated message] The system which ge nerated this result transmit gaye reference range : <=65. The reference range was not used to interpr et this result as satish l/abnormal. [facility]2015-01-12 19:24:00 Test Item Value Reference Range Interpretation Comments AST (test code = AST) 12 See_Comment [Auto mated message] The system which ge nerated this result transmit gaye reference range : <=37. The reference range was not used to interpr et this result as satish l/abnormal. [facility]2015-01-12 19:24:00 Test Item Value Reference Range Interpretation Comments Albumin Lvl (test code = Albumin Lvl) 3.8 3.5-5.0 [facility]2015-01-12 19:24:00 Test Item Value Reference Range Interpretation Comments Total Protein (test code = Total 8.0 6.4-8.4 Protein) [facility]2015-01-12 19:24:00 Test Item Value Reference Range Interpretation Comments A/G Ratio (test code = A/G Ratio) 0.9 0.7-1.6 [facility]2015-01-12 19:24:00 Test Item Value Reference Range Interpretation Comments AGAP (test code = AGAP) 6.9 10.0-20.0 [facility] [id number] 19:24:00 Test Item Value Reference Range Interpretation Comments B/C Ratio (test code = B/C Ratio) 10 6-25 [facility] [id number] 19:24:00 Test Item Value Reference Range Interpretation Comments Globulin (test code = Globulin) 4.2 2.0-4.0 [facility]TmwbmqvSRLIQORKUSEVE8715-03-13 19:24:00 Test Item Value Reference Range Interpretation Comments S Preg (test code = S Negative *NA*(08/24/14 Preg) 1:24 PM) [facility]cjmitfNNQTNIQDLC0901-[facility]-01 19:24:00 Test Item Value Reference Range Interpretation Comments WBC (test code = WBC) 11.3 3.7-10.4 [facility]OxgefstGGGDALGACT3613-07-22 19:24:00 Test Item Value Reference Range Interpretation Comments RBC (test code = RBC) 4.75 4.20-5.40 [facility] CenterRpuapmdBCAZYGWQPP7619-55-67 19:24:00 Test Item Value Reference Range Interpretation Comments Platelet (test code = Platelet) 402 133-450 [facility]EvpwbweSXIUGCKDWO8272-95-29 19:24:00 Test Item Value Reference Range Interpretation Comments MCV (test code = MCV) 89.9 80.0-98.0 [facility] CenterOgspaecSOCUMVJCJZ6381-91-23 19:24:00 Test Item Value Reference Range Interpretation Comments Hct (test code = Hct) 42.7 36.0-48.0 [facility]WqbfgtbCULFFUXVAD5686-37-41 19:24:00 Test Item Value Reference Range Interpretation Comments Hgb (test code = Hgb) 14.5 12.0-16.0 [facility] CenterRdhmawpNSLWVJEJZN5133-99-18 19:24:00 Test Item Value Reference Range Interpretation Comments RDW (test code = RDW) 13.5 11.5-14.5 [facility] CenterQeamlghKREMLUXTAR4869-49-06 19:24:00 Test Item Value Reference Range Interpretation Comments MCHC (test code = MCHC) 34.0 32.0-36.0 [facility] CenterXuemrcqSALJULJOMK5744-08-87 19:24:00 Test Item Value Reference Range Interpretation Comments MCH (test code = MCH) 30.6 pg 27.0-31.0 [facility] CenterOcjfdwcZPQZDTPDCV2407-78-28 19:24:00 Test Item Value Reference Range Interpretation Comments MPV (test code = MPV) 8.1 7.4-10.4 [facility] CenterRfqzyxjYWWHNCFIFC7020-88-31 19:24:00 Test Item Value Reference Range Interpretation Comments Stomatocyte (test code = Stomatocyte) Slight [facility] CenterBofnqgcCVVFEKZSDV0887-43-22 19:24:00 Test Item Value Reference Range Interpretation Comments Basophils # (test code 0.1 See_Comment [Aut omated message] The = Basophils #) system which generated this result tra nsmitted reference range : <=0.2. The reference r ozzy was not used to int erpret this result as normal/abnormal . [facility] CenterOrpbjopLSLEQGVXPC3035-63-76 19:24:00 Test Item Value Reference Range Interpretation Comments Eosinophils # (test code 0.2 See_Comment [A utomated message] The = Eosinophils #) system whic h generated this result tra nsmitted reference range : <=0.5. The reference r ozzy was not used to int erpret this result as normal/abnormal . [facility] CenterFeblensHLQWUGBNSU5989-44-43 19:24:00 Test Item Value Reference Range Interpretation Comments Hypochrom (test code = 1+ (08/24/14 1:24 PM) Hypochrom) [facility] CenterSjryhnmWXDGUEZXHD2536-33-40 19:24:00 Test Item Value Reference Range Interpretation Comments Lymphocytes # (test code = Lymphocytes 2.8 1.0-5.5 #) [facility] CenterEsgdqdzTOIAMWOMKO3811-81-46 19:24:00 Test Item Value Reference Range Interpretation Comments Segs-Bands # (test code = Segs-Bands #) 8.1 1.5-8.1 [facility] CenterXydkdtfNHZKRMJDTC3608-37-36 19:24:00 Test Item Value Reference Range Interpretation Comments Monocytes # (test code 0.2 See_Comment [Aut omated message] The = Monocytes #) system which generated this result tra nsmitted reference range : <=0.8. The reference r ozzy was not used to int erpret this result as normal/abnormal . [facility] CenterRqnjirbKTPSERCBXN8983-23-89 19:24:00 Test Item Value Reference Range Interpretation Comments Lymphocytes (test code = Lymphocytes) 24.5 20.0-40.0 [facility] CenterZbzftdgGMWLBZPSQG6304-38-16 19:24:00 Test Item Value Reference Range Interpretation Comments Segs (test code = Segs) 71.8 45.0-75.0 [facility] CenterPyfmqvcGCWJLJILHF2498-00-37 19:24:00 Test Item Value Reference Range Interpretation Comments Basophils (test code = 0.6 See_Comment [Aut omated message] The Basophils) system which ge nerated this result tra nsmitted reference range : <=1.0. The reference r ozzy was not used to int erpret this result as normal/abnormal . [facility] CenterWcarsjkKPRTCFXPFO9817-85-28 19:24:00 Test Item Value Reference Range Interpretation Comments Monocytes (test code = Monocytes) 1.5 2.0-12.0 [facility] CenterPenuhhwINBWALUVTD6966-62-65 19:24:00 Test Item Value Reference Range Interpretation Comments Eosinophils (test code = 1.6 See_Comment [A utomated message] The Eosinophils) system which ge nerated this result tra nsmitted reference range : <=4.0. The reference r ozzy was not used to int erpret this result as normal/abnormal . [facility] CenterQbhtcbpJTHTKKCALM7341-53-01 19:24:00 Test Item Value Reference Range Interpretation Comments Plt Morph (test code = Normal (08/24/14 1:24 Plt Morph) PM) [facility] AND [id number] 19:24:00 Test Item Value Reference Range Interpretation Comments UA Sq Epi (test code = UA Sq Occasional /LPF Epi) [facility] AND [id number] 19:24:00 Test Item Value Reference Range Interpretation Comments UA Bacteria (test code = UA Occasional /HPF Bacteria) [facility] AND [id number] 19:24:00 Test Item Value Reference Range Interpretation Comments UA Mucus (test code = None Seen (08/24/14 UA Mucus) 1:24 PM) [facility] AND [id number] 19:24:00 Test Item Value Reference Range Interpretation Comments UA WBC (test code = UA WBC) 0-2 /HPF [facility] AND [id number] 19:24:00 Test Item Value Reference Range Interpretation Comments UA RBC (test code = 0-2 /HPF See_Comment [Automa gaye message] The UA RBC) system which ge nerated this result tra nsmitted reference range : <=2. The reference range was not used to interpr et this result as satish l/abnormal. [facility] AND [id number] 19:24:00 Test Item Value Reference Range Interpretation Comments UA Leuk Est (test Moderate *ABN*(08/24/14 code = UA Leuk Est) 1:24 PM) [facility] AND [id number] 19:24:00 Test Item Value Reference Range Interpretation Comments UA Nitrite (test code Negative (08/24/14 1:24 = UA Nitrite) PM) [facility] AND [id number] 19:24:00 Test Item Value Reference Range Interpretation Comments UA Urobilinogen (test code = UA 0.2 0.1-1.0 Urobilinogen) [facility] AND [id number] 19:24:00 Test Item Value Reference Range Interpretation Comments UA Ketones (test code Negative *NA*(08/24/14 = UA Ketones) 1:24 PM) [facility] AND [id number] 19:24:00 Test Item Value Reference Range Interpretation Comments UA Blood (test code = Negative (08/24/14 1:24 UA Blood) PM) [facility] AND [id number] 19:24:00 Test Item Value Reference Range Interpretation Comments UA Bili (test code = Negative *NA*(08/24/14 UA Bili) 1:24 PM) [facility] AND [id number] 19:24:00 Test Item Value Reference Range Interpretation Comments UA Color (test code = Yellow *NA*(08/24/14 UA Color) 1:24 PM) [facility] AND [id number] 19:24:00 Test Item Value Reference Range Interpretation Comments UA Glucose (test code Negative (08/24/14 1:24 = UA Glucose) PM) [facility] AND [id number] 19:24:00 Test Item Value Reference Range Interpretation Comments UA Protein (test code Negative (08/24/14 1:24 = UA Protein) PM) [facility] AND [id number] 19:24:00 Test Item Value Reference Range Interpretation Comments UA pH (test code = UA pH) 6.0 1 5.0-8.0 [facility] AND [id number] 19:24:00 Test Item Value Reference Range Interpretation Comments UA Spec Grav (test code *NA*(08/24/14 1:24 PM) = UA Spec Grav) [facility] AND [id number] 19:24:00 Test Item Value Reference Range Interpretation Comments UA Turbidity (test code = Clear (08/24/14 1:24 UA Turbidity) PM) [facility]
[2022-12-14] MEDS ORDERED: MORPHINE 2 MG/ML SYR ONE (23:29)
[2022-12-14] MEDS ORDERED: FAMOTIDINE 20 MG/2 ML VIAL IV ONE (23:29)
[2022-12-14] MEDS ORDERED: NA CHLORIDE 0.9% 1,000 ML ONE (23:29)
[2022-12-14] MEDS ORDERED: ONDANSETRON 4 MG/2 ML VIAL ONE (23:29)
[2022-12-15] MEDS ORDERED: HYDROMORPHONE HCL 1 MG/ML INJ ONE ×2 (00:14→03:16)
[2022-12-15 00:32] LABS: Hematocrit 40.9 % (36.0-45.0); Lymphocytes % 43.8 % (15.3-44.8); MCV 89.4 fL (80-100); MPV 8.2 fL (7.6-11.3); RBC Red Blood Cell Count 4.58 M/uL (3.86-4.86)
[2022-12-15 00:46] LABS: Albumin 3.4 g/dL (3.4-5.0); Bilirubin Total 0.7 mg/dL (0.2-1.0); Potassium 3.8 mEq/L (3.5-5.1); Protein, Total 6.9 g/dL (6.4-8.2)
[2022-12-15] MEDS ORDERED: NA CHLORIDE 0.9% 500 ML ONE (01:01)
[2022-12-15] MEDS ORDERED: NA CHLORIDE 0.9% 1,000 ML ONE (01:01)
[2022-12-15] MEDS ORDERED: NA CHLORIDE 0.9% 100 ML ONE (02:45)
[2022-12-15] MEDS ORDERED: PIPERACIL/TAZO 3.375 GM VIAL IV ONE (02:46)
[2022-12-15] MEDS ORDERED: ONDANSETRON 4 MG/2 ML VIAL ONE (05:19)
--- NOTE | 2022-12-15 07:08 | ER ---
Nurse's Notes [facility] Name: Shanna Nur Age: 47 yrs Sex: Female : 1975 Arrival Date: 12/14/2022 Time: 22:40 Bed 8 Private MD: Diagnosis: Abdominal pain, Generalized Presentation: 12/14 22:48 Chief complaint: Patient states: I was seen in the ER two days ago and discharged with kd3 colitis. I have now been able to use the bathroom since i left and now my stomach is hard an extremely painful. Coronavirus screen: Vaccine status: Patient reports being unvaccinated. Ebola Screen: No symptoms or risks identified at this time. Initial Sepsis Screen: Does the patient meet any 2 criteria? No. Patient's initial sepsis screen is negative. Does the patient have a suspected source of infection? No. Patient's initial sepsis screen is negative. Risk Assessment: Do you want to hurt yourself or someone else? Patient reports no desire to harm self or others. Onset of symptoms was December 14, 2022. 22:48 Method Of Arrival: Ambulatory kd3 22:48 Acuity: JESUS 3 kd3 Triage Assessment: 22:50 General: Appears uncomfortable, Behavior is anxious. Pain: Complains of pain in right kd3 lower quadrant and left lower quadrant. GI: Abdomen is. Historical: - Allergies: 22:50 Ibuprofen; kd3 22:50 Iodine (Anaphylaxis); kd3 22:50 Latex, Natural Rubber; kd3 22:50 Levaquin IV; kd3 22:50 Phenergan; kd3 22:50 SEAFOOD; kd3 22:50 Toradol; kd3 22:50 tramadol; kd3 22:50 Vancomycin; kd3 22:50 Ultram; kd3 22:50 Levaquin; kd3 - PMHx: 22:50 Atrial fibrillation; Seizure; TBI; kd3 - PSHx: 22:50 Adenoid excision; Appendectomy; L knee SX; Tonsillectomy; tubal ligation; kd3 Cholecystectomy; - Immunization history:: Adult Immunizations up to date. - Social history:: Smoking status: Patient denies any tobacco usage or history of. Screenin:51 [facility] ED Fall Risk Assessment (Adult) Score/Fall Risk Level 0 - 2 = Low Risk. Abuse as6 screen: Denies threats or abuse. Denies injuries from another. Nutritional screening: No deficits noted. Tuberculosis screening: No symptoms or risk factors identified. Assessment: 23:40 General: Appears uncomfortable, Behavior is cooperative, anxious, crying, restless. as6 Pain: Complains of pain in left upper quadrant and anterior aspect of left lateral abdomen and abdomen and left lower quadrant and right lower quadrant. Neuro: Level of Consciousness is awake, alert, obeys commands, Oriented to person, place, time, situation. Cardiovascular: Capillary refill < 3 seconds Patient's skin is warm and dry. Respiratory: Respiratory effort is even, unlabored, Respiratory pattern is regular, symmetrical. GI: Reports lower abdominal pain, upper abdominal pain, nausea. 12/15 06:57 Reassessment: Patient appears in no apparent distress at this time. Patient and/or as6 family updated on plan of care and expected duration. Pain level reassessed. Patient is alert, oriented x 3, equal unlabored respirations, skin warm/dry/pink. Patient states feeling better. 08:06 Reassessment: DC HOME AMBULATORY. bp Vital Signs: 12/14 22:48 BP 132 / 93; Pulse 103; Resp 21; Temp 97.4; Pulse Ox 100% on R/A; Weight 68.04 kg; kd3 Height 5 ft. 3 in. ; 22:51 BP 127 / 71; Pulse 98; Pulse Ox 100% on R/A; kd3 12/15 00:00 BP 111 / 84; Pulse 80; Resp 18 S; Pulse Ox 97% on R/A; as6 01:00 BP 103 / 61; Pulse 84; Resp 18 S; Pulse Ox 97% on R/A; as6 02:00 BP 103 / 70; Pulse 61; Resp 16 S; Pulse Ox 99% on R/A; as6 03:00 BP 108 / 59; Pulse 64; Resp 18 S; Pulse Ox 99% on R/A; as6 04:00 BP 103 / 60; Pulse 69; Resp 18 S; Pulse Ox 99% on R/A; as6 05:00 BP 103 / 68; Pulse 70; Resp 18 S; Pulse Ox 100% on R/A; as6 06:56 BP 107 / 72; Pulse 60; Resp 18 S; Pulse Ox 100% on R/A; as6 12/14 22:48 Body Mass Index 26.57 (68.04 kg, 160.02 cm) kd3 ED Course: 12/14 22:41 Patient arrived in ED. jj6 22:48 Tee Bill PA is PHCP. cp 22:48 Tony Tran MD is Attending Physician. cp 22:50 Triage completed. kd3 22:50 Arm band placed on right wrist. kd3 23:24 Todd Abebe, AUDI is Primary Nurse. as6 23:51 Inserted saline lock: 22 gauge in right antecubital area, using aseptic technique. as6 Blood collected. 12/15 01:05 XRAY Chest (1 view) In Process Unspecified. EDMS 01:26 CT Abd/Pelvis - Without Contrast In Process Unspecified. EDMS 06:48 Placed in gown. Bed in low position. Call light in reach. as6 06:57 No provider procedures requiring assistance completed. as6 08:06 IV discontinued, intact, bleeding controlled, No redness/swelling at site. Pressure bp dressing applied. Administered Medications: 12/14 23:49 Drug: NS 0.9% IV 1000 ml Route: IV; Rate: 1 bolus; Site: right antecubital; as6 12/15 06:45 Follow up: Response: No adverse reaction; IV Status: Completed infusion; IV Intake: as6 1000ml 12/14 23:49 Drug: Famotidine IVP 20 mg Route: IVP; Site: right antecubital; as6 12/15 06:45 Follow up: Response: No adverse reaction as6 12/14 23:49 Drug: Ondansetron IVP 4 mg Route: IVP; Site: right antecubital; as12/15 06:45 Follow up: Response: No adverse reaction as12/14 23:49 Drug: morphine IVP or IV 2 mg Route: IVP; Infused Over: 4 mins; Site: right antecubital;as6 12/15 06:46 Follow up: Response: No adverse reaction as6 00:10 Drug: HYDROmorphone IVP 1 mg Route: IVP; Site: right antecubital; as6 06:46 Follow up: Response: No adverse reaction as6 00:51 CANCELLED (Physician Discretion): NS 0.9% IV (30 ml/kg) 30 ml/kg IV at bolus once; cp Sepsis Protocol 00:58 Drug: NS 0.9% IV (30 ml/kg) 30 ml/kg Route: IV; Rate: bolus; Site: right antecubital; as6 06:46 Follow up: Response: No adverse reaction; IV Status: Completed infusion; IV Intake: as6 2041.2ml 02:44 Drug: Piperacillin-Tazobactam IVPB 3.375 grams Route: IVPB; Infused Over: 60 mins; as6 Site: right antecubital; 06:47 Follow up: Response: No adverse reaction; IV Status: Completed infusion; IV Intake: as6 100ml 03:11 Drug: HYDROmorphone IVP 1 mg Route: IVP; Site: right antecubital; as6 06:47 Follow up: Response: No adverse reaction as6 05:15 Drug: Ondansetron IVP 4 mg Route: IVP; Site: right antecubital; as6 06:48 Follow up: Response: No adverse reaction as6 Medication: 06:48 VIS not applicable for this client. as6 Intake: 06:45 IV: 1000ml; Total: 1000ml. as6 06:46 IV: 2041ml; Total: 3041ml. as6 06:47 IV: 100ml; Total: 3141ml. as6 Outcome: 07:08 Discharge ordered by . kdr 08:06 Discharged to home ambulatory. bp 08:06 Condition: stable 08:06 Discharge instructions given to patient, Instructed on discharge instructions, follow up and referral plans. medication usage, Demonstrated understanding of instructions, follow-up care, medications, Prescriptions given X 1. 08:07 Patient left the ED. bp Signatures: Dispatcher [employer] EDMS Tony Tran MD MD [facility] Tee Bill PA PA cp Peltier, Brian, RN RN Inez Stapleton [email or web address] Todd Abebe RN RN as6 Leslee Keith RN RN kd3
--- NOTE | 2022-12-15 07:08 | EDPHYS ---
Physician Documentation [facility] Name: Shanna Nur Age: 47 yrs Sex: Female : 1975 Arrival Date: 12/14/2022 Time: 22:40 Bed 8 Private MD: ED Physician Tony Tran HPI: 12/14 23:25 This 47 yrs old Female presents to ER via Ambulatory with complaints of Abdominal cp Cramping, Constipation. 23:25 The patient presents with abdominal pain left side of abdomen. cp 23:25 Onset: The symptoms/episode began/occurred 2 day(s) ago. cp 23:25 The symptoms radiate to left back. Associated signs and symptoms: Pertinent positives: cp constipation, Pertinent negatives: blood in stools, fever, vomiting. The symptoms are described as constant. Severity of pain: in the emergency department the pain is unchanged despite home interventions. Historical: - Allergies: 22:50 Ibuprofen; kd3 22:50 Iodine (Anaphylaxis); kd3 22:50 Latex, Natural Rubber; kd3 22:50 Levaquin IV; kd3 22:50 Phenergan; kd3 22:50 SEAFOOD; kd3 22:50 Toradol; kd3 22:50 tramadol; kd3 22:50 Vancomycin; kd3 22:50 Ultram; kd3 22:50 Levaquin; kd3 - PMHx: 22:50 Atrial fibrillation; Seizure; TBI; kd3 - PSHx: 22:50 Adenoid excision; Appendectomy; L knee SX; Tonsillectomy; tubal ligation; kd3 Cholecystectomy; - Immunization history:: Adult Immunizations up to date. - Social history:: Smoking status: Patient denies any tobacco usage or history of. ROS: 23:30 Constitutional: Negative for body aches, chills, fever. cp 23:30 Eyes: Negative for injury, pain, redness, and discharge. cp 23:30 ENT: Negative for drainage from ear(s), ear pain, sore throat, difficulty swallowing, difficulty handling secretions. 23:30 Abdomen/GI: Positive for abdominal pain, constipation, Negative for vomiting, black/tarry stool, rectal bleeding. 23:30 Cardiovascular: Negative for chest pain, edema, palpitations. cp 23:30 Respiratory: Negative for cough, shortness of breath, wheezing. 23:30 Neuro: Negative for altered mental status, dizziness, headache, weakness. 23:30 All other systems are negative. cp Exam: 23:35 Constitutional: The patient appears in no acute distress, alert, awake, cp non-diaphoretic, non-toxic, well developed, well nourished, uncomfortable. 23:35 Head/Face: Normocephalic, atraumatic. cp 23:35 Eyes: Periorbital structures: appear normal, Conjunctiva: normal, no exudate, no injection, Sclera: no appreciated abnormality, Lids and lashes: appear normal, bilaterally. 23:35 ENT: External ear(s): are unremarkable, Nose: is normal, Mouth: Lips: moist, Oral mucosa: pink and intact, moist, Posterior pharynx: is normal, airway is patent, no erythema, no exudate. 23:35 Neck: ROM/movement: is normal, is supple, without pain, no range of motions limitations. 23:35 Chest/axilla: Inspection: normal. 23:35 Cardiovascular: Rate: tachycardic, Rhythm: regular. 23:35 Respiratory: the patient does not display signs of respiratory distress, Respirations: normal, no use of accessory muscles, no retractions, labored breathing, is not present, Breath sounds: are clear throughout, no decreased breath sounds, no stridor, no wheezing. 23:35 Abdomen/GI: Inspection: distension, that is moderate, Bowel sounds: active, all quadrants, Palpation: soft, in all quadrants, severe abdominal tenderness, in the anterior aspect of left lateral abdomen, left upper quadrant and left lower quadrant, rebound tenderness, is not appreciated, voluntary guarding, is elicited in the anterior aspect of left lateral abdomen, left upper quadrant and left lower quadrant. 23:35 Skin: no rash present. Vital Signs: 22:48 BP 132 / 93; Pulse 103; Resp 21; Temp 97.4; Pulse Ox 100% on R/A; Weight 68.04 kg; kd3 Height 5 ft. 3 in. ; 22:51 BP 127 / 71; Pulse 98; Pulse Ox 100% on R/A; kd3 05/05 00:00 BP 111 / 84; Pulse 80; Resp 18 S; Pulse Ox 97% on R/A; as6 01:00 BP 103 / 61; Pulse 84; Resp 18 S; Pulse Ox 97% on R/A; as6 02:00 BP 103 / 70; Pulse 61; Resp 16 S; Pulse Ox 99% on R/A; as6 03:00 BP 108 / 59; Pulse 64; Resp 18 S; Pulse Ox 99% on R/A; as6 04:00 BP 103 / 60; Pulse 69; Resp 18 S; Pulse Ox 99% on R/A; as6 05:00 BP 103 / 68; Pulse 70; Resp 18 S; Pulse Ox 100% on R/A; as6 06:56 BP 107 / 72; Pulse 60; Resp 18 S; Pulse Ox 100% on R/A; as6 / 22:48 Body Mass Index 26.57 (68.04 kg, 160.02 cm) kd3 MDM: 12/14 22:51 Patient medically screened. cp 12/15 00:00 Differential diagnosis: diverticulitis, non-specific abd pain, Pyelonephritis, cp Ureterolithiasis, urinary tract infection, colitis, peritonitis, bowel perforation. 02:50 Transition of care: After a detail discussion of the patient's case, care is cp transferred to Tony Tran MD. 07:10 Data reviewed: vital signs, nurses notes, lab test result(s), radiologic studies. kdr 12/14 23:16 Order name: CBC with Diff; Complete Time: 00:49 cp 12/14 23:16 Order name: CMP; Complete Time: 00:49 cp 12/15 00:49 Interpretation: Normal except: CL 109; GLUC 107; A/G 1.0. cp 12/14 23:16 Order name: Lipase; Complete Time: 00:49 cp 12/14 23:16 Order name: Lactate w/ 2H reflex if indic.; Complete Time: 00:49 cp 12/15 00:50 Interpretation: Abnormal: LAC 3.2. cp 12/15 05:52 Order name: Lactate Sepsis 2 HR Follow-up; Complete Time: 06:58 EDMS 12/15 00:51 Order name: XRAY Chest (1 view) cp 12/15 00:52 Order name: CT Abd/Pelvis - Without Contrast cp 12/14 23:16 Order name: IV Saline Lock; Complete Time: 23:49 cp 12/14 23:16 Order name: Labs collected and sent; Complete Time: 23:49 cp Administered Medications: 12/14 23:49 Drug: NS 0.9% IV 1000 ml Route: IV; Rate: 1 bolus; Site: right antecubital; as6 12/15 06:45 Follow up: Response: No adverse reaction; IV Status: Completed infusion; IV Intake: as6 1000ml 12/14 23:49 Drug: Famotidine IVP 20 mg Route: IVP; Site: right antecubital; as6 12/15 06:45 Follow up: Response: No adverse reaction 12/14 23:49 Drug: Ondansetron IVP 4 mg Route: IVP; Site: right antecubital; as6 12/15 06:45 Follow up: Response: No adverse reaction 6 12/14 23:49 Drug: morphine IVP or IV 2 mg Route: IVP; Infused Over: 4 mins; Site: right antecubital;as6 12/15 06:46 Follow up: Response: No adverse reaction as6 00:10 Drug: HYDROmorphone IVP 1 mg Route: IVP; Site: right antecubital; as6 06:46 Follow up: Response: No adverse reaction as6 00:51 CANCELLED (Physician Discretion): NS 0.9% IV (30 ml/kg) 30 ml/kg IV at bolus once; cp Sepsis Protocol 00:58 Drug: NS 0.9% IV (30 ml/kg) 30 ml/kg Route: IV; Rate: bolus; Site: right antecubital; as6 06:46 Follow up: Response: No adverse reaction; IV Status: Completed infusion; IV Intake: as6 2041.2ml 02:44 Drug: Piperacillin-Tazobactam IVPB 3.375 grams Route: IVPB; Infused Over: 60 mins; as6 Site: right antecubital; 06:47 Follow up: Response: No adverse reaction; IV Status: Completed infusion; IV Intake: as6 100ml 03:11 Drug: HYDROmorphone IVP 1 mg Route: IVP; Site: right antecubital; as6 06:47 Follow up: Response: No adverse reaction as6 05:15 Drug: Ondansetron IVP 4 mg Route: IVP; Site: right antecubital; as6 06:48 Follow up: Response: No adverse reaction as6 Disposition: 07:07 Co-signature as Attending Physician, Tony Tran MD I agree with the assessment and kdr plan of care. Disposition Summary: 12/15/22 07:08 Discharge Ordered Location: Home kdr Problem: an ongoing problem kdr Symptoms: have improved kdr Condition: Stable kdr Diagnosis - Abdominal pain, Generalized kdr Followup: kdr - With: Private Physician - When: 2 - 3 days - Reason: If symptoms return, Further diagnostic work-up, Recheck today's complaints, Continuance of care, Re-evaluation by your physician Discharge Instructions: - Discharge Summary Sheet kdr - Abdominal Pain, Adult, [id number] kdr Forms: - Medication Reconciliation Form kdr - Thank You Letter kdr Prescriptions: - acetaminophen-codeine 300-30 mg Oral tablet - take 1 tablet by ORAL route every 6-8 hours As needed as needed for pain; 8 kdr tablet; Refills: 0, Product Selection Permitted Signatures: Dispatcher [employer] EDMS Tony Tran MD MD kdr Tee Bill PA PA cp Todd Abebe RN RN as6 Leslee Keith RN RN kd3 Hesham Choudhary MD MD bs3 Corrections: (The following items were deleted from the chart) 00:37 00:01 Abdomen Pelvis W Con+CT.RAD.BRZ ordered. EDMS EDMS 00:51 00:51 NS 0.9% IV (30 ml/kg) 30 ml/kg IV at bolus once; Sepsis Protocol ordered. cp cp 01:02 00:20 Abdomen Pelvis W Con+CT.RAD.BRZ ordered. EDMS EDMS 05:25 04:59 LACTATE+C.LAB.BRZ ordered. EDMS EDMS
[2022-12-15 08:13] VITALS: TEMP 97.4
[2022-12-15 08:22] VITALS: O2SAT 100
[2022-12-15 08:23] VITALS: BP 107/72
--- NOTE | 2022-12-15 13:59 | RAD REPORT ---
EXAM DESCRIPTION: CT - Abdomen Pelvis Wo Contrast - 12/15/2022 6:29 am CLINICAL HISTORY: The patient is 47 years old and is Female; Abdominal distention;Abd pain TECHNIQUE: Axial computed tomography images of the abdomen and pelvis without intravenous contrast. Sagittal and coronal reformatted images were created and reviewed. This CT exam was performed usi ng one or more of the following dose reduction techniques: automated exposure control, adjustment o f the mA and/or kV according to patient size, and/or use of iterative reconstruction technique. COMPARISON: CT abdomen and pelvis without contrast dated 12/12/2022. FINDINGS: Lung bases: Unremarkable. No mass. No consolidation. ABDOMEN: Liver: Unremarkable. Gallbladder and bile ducts: Gallbladder is surgically absent. No ductal dilation. Pancreas: Unremarkable. No ductal dilation. Spleen: Unremarkable. No splenomegaly. Adrenals: Unremarkable. No mass. Kidneys and ureters: Unremarkable. No obstructing stones. No hydronephrosis. Stomach and bowel: Unremarkable. No obstruction. No mucosal thickening. PELVIS: Appendix: No findings to suggest acute appendicitis. Bladder: Unremarkable. Reproductive: IUD in uterus. ABDOMEN and PELVIS: Intraperitoneal space: Mild nonspecific mesenteric stranding in the upper abdomen. No free air. No significant fluid collection. Bones/joints: No acute fracture. No dislocation. Soft tissues: Unremarkable. Vasculature: Unremarkable. No abdominal aortic aneurysm. Lymph nodes: Unremarkable. No enlarged lymph nodes. IMPRESSION: 1. No acute finding in the abdomen/pelvis. 2. Mild nonspecific mesenteric stranding in the upper abdomen. 3. Gallbladder is surgically absent. 4. IUD in uterus. Electronically signed by: Leighton Zamora MD 12/15/2022 2:06 AM CDT Due to temporary technical issues with the PACS/Fluency reporting system, reports are being signed by the in house radiologists without review as a courtesy to insure prompt reporting. The interpreting radiologist is fully responsible for the content of the report.
--- NOTE | 2022-12-15 14:02 | RAD REPORT ---
EXAM DESCRIPTION: RAD - Chest Single View - 12/15/2022 1:03 am CLINICAL HISTORY: The patient is 47 years old and is Female; ABDOMINAL DISTENTION TECHNIQUE: Frontal view of the chest. COMPARISON: No relevant prior studies available. FINDINGS: Lungs: Unremarkable. No consolidation. Pleural space: Unremarkable. No pneumothorax. Heart: Unremarkable. Mediastinum: Unremarkable. Bones/joints: Unremarkable. IMPRESSION: No acute findings in the chest. Electronically signed by: Leighton Zamora MD 12/15/2022 1:27 AM CDT Due to temporary technical issues with the PACS/Fluency reporting system, reports are being signed by the in house radiologists without review as a courtesy to insure prompt reporting. The interpreting radiologist is fully responsible for the content of the report.
== END 2022-12-15 08:07 | disposition home or self-care (01) ==
LOC: ER 22:40
DX: R10.84 Generalized abdominal pain (principal); K59.00 Constipation, unspecified; Z88.1 Allergy status to other antibiotic agents; Z88.2 Allergy status to sulfonamides; Z88.3 Allergy status to other anti-infective agents; Z88.5 Allergy status to narcotic agent; Z88.6 Allergy status to analgesic agent; Z88.8 Allergy status to other drugs, medicaments and biological substances; Z91.013 Allergy to seafood; Z91.040 Latex allergy status; Z91.048 Other nonmedicinal substance allergy status
CPT/HCPCS: 96365; 96361; 85025; 36415 ×2; 83605 ×2; 83690; 80053; 74176; 71045; 96375; 99284; 96366; J2543; J2270; J1170 ×2; J2405 ×2; J7040; J7030 ×2

== ENCOUNTER 2023-02-14 16:13 | Observation (INO) | payer OTHER ==
--- OUTSIDE RECORDS SUMMARY | 2023-02-14 16:43 | XMS REPORT | Continuity of Care Document ---
:1975 Author Organization [facility] t Address [address] [place] [address] Care Team Providers Name Role Phone NEWTHOM Primary Care Physician [phone] LEANDRO OLIVARES Attending Clinician Unavailable FABRICIO ORTIZ Attending Clinician Unavailable Fabricio Conteh Attending Clinician MIHIR LUNA Attending Clinician Unavailable Mihir Luna MD Attending Clinician SIMRAN CONTEH Attending Clinician Unavailable Simran Conteh MD Attending Clinician Doctor Unassigned, [place] Attending Clinician Unavailable Halima Vargas MD Attending Clinician HALIMA VARGAS Attending Clinician Unavailable Karissa Attending Clinician Unavailable James MCDUFFIE, Haroon Young Attending Clinician Elvi ANDERSON Joeus Lai Attending Clinician TEJAL RIZZO Attending Clinician Unavailable Florence HUNTLEY, [place]ka Attending Clinician Unavailable Starr Vinson RN Attending Clinician Unavailable LEANDRO OLIVARES M.D. Attending Clinician Unavailable VIRAL COFFEY Attending Clinician Unavailable Felicia Frost MD Attending Clinician LUCY NASCIMENTO M.D. Attending Clinician Unavailable Bladimir Brumfield MD Attending Clinician [phone] Obdulio Ragland MD Attending Clinician MD OBDULIO RAGLAND Attending Clinician Unavailable Inez García MD Attending Clinician [phone] JUDE MATHEWS M.D. Attending Clinician Unavailable Woo Greenberg DO Attending Clinician [phone] [place] MD Attending Clinician Clarice Brannon MD Attending Clinician Lj Thakkar Attending Clinician MD LJ THAKKAR Attending Clinician Unavailable Jose Elias Torres MD Attending Clinician Lydia Oden MD Attending Clinician [phone] Maribel Dickey MD Attending Clinician MD [...] [place] Attending Clinician Nay Carlson Attending Clinician MIHIR LUNA Admitting Clinician Unavailable SIMRAN CONTEH Admitting Clinician Unavailable Karissa Admitting Clinician Unavailable OBDULIO RAGLAND Admitting Clinician Unavailable MD OBDULIO RAGLAND Admitting Clinician Unavailable CLARICE BRANNON Admitting Clinician Unavailable MD CLARICE BRANNON Admitting Clinician Unavailable LYDIA ODEN Admitting Clinician Unavailable MD LYDAI ODEN Admitting Clinician Unavailable MARCIA PATE Admitting Clinician Unavailable BLAZE SQUIRES Admitting Clinician Unavailable MD BLAZE SQUIRES Admitting Clinician Unavailable ORESTES DUONG Admitting Clinician Unavailable Payers Payer Name Policy Type Policy Number Effective Date Expiration Date S maurice [facility] [id number] 2020 STAR 00:00:00 [facility] STAR [id number] 2022 00:00:00 CDC REVIEW [id number] 2020 00:00:00 Problems Condition Condition Condition Status [...] gait Seizures Seizures Disease Active Metho di 9-26 st 00:00: Hospita 00 l Dizziness Dizziness Disease Active Met hodi 9-24 st 00:00: Hospita 00 l Chest pain [...] 09:01:00 l Active 23:00: Antonio 02/12/2016 00 [facility] D25.9 - D25.9 - Diagnosis Active 2014-082015-06-08 Memoria "LEIOMYOMA "LEIOMYOMA 15:22:00 l OF UTERUS, OF UTERUS, 00:01: He rodger UNSPECIFI" UNSPECIFI" 00 Active 06/08/2015 OPID Antonio VAGINAL VAGINAL Diagnosis Active 2014-12-21 Memoria BLEEDING- BLEEDING- 09-03 13:01:00 l 6 WKS PG 6 WKS PG 00:00: Jordy n Active 09/03/2014 [facility] CONSTIPATI CONSTIPAT Diagnosis Active 2014-12-14 Memoria ON, NAUSEA ION, - 09:23:00 l NAUSEA 00:00: Antonio Active 08/24/2014 [facility] History of History of Problem [...] rs active active ity of problems problems [facility] Anemia Anemia Problem Resolve 2016-02-16 Mem oria (disorder) (disorder) d 00:25:42 l Resolved Darby Problem 02/16/2016 [facility] Migraine Migraine Problem Resolve 2016-02-16 Memoria (disorder) (disorder) d 00:25:42 l Resolved Antonio Problem 02/16/2016 [facility] Mitral Mitral Problem Resolve 2016-02-16 Me moria valve valve d 00:25:42 l prolapse prolapse Jordy n (disorder) (disorder) Resolved Problem 02/16/2016 [place] Anxiety Anxiety Problem Active 2016-02-16 Me juliannaa (finding) (finding) 00:25:42 l Active Antonio Problem 02/16/2016 [facility] [place] Bipolar Bipolar Problem Active 2016-02-16 Me moria (qualifier (qualifier 00:25:42 l value) value) Antonio Active Problem 02/16/2016 [facility] [place] Congestive Congestiv Problem Active 2016-02-16 Memoria heart e heart 00:25:42 l failure failure Darby (disorder) (disorder) Active Problem 02/16/2016 [facility] [place] Depressive Depressiv Problem Active 2016-02-16 Memoria disorder e disorder 00:25:42 l (disorder) (disorder) He rmann Active Problem 02/16/[address] [facility] Gastroesop Gastroeso Problem Active 2016-02-16 Memoria hageal phageal 00:25:42 l reflux reflux Darby disease disease (disorder) (disorder) Active Problem 02/16/2016 [facility] [place] Heart Heart Problem Active 2016-02-16 Bhavesh mario failure failure 00:25:42 l (disorder) (disorder) He rmann Active Problem 02/16/2016 [place] Hypertensi Hypertens Problem Active 2016-02-16 Memoria ve kellee 00:25:42 l disorder, disorder, Herm alem systemic systemic arterial arterial (disorder) (disorder) Active Problem 02/16/2016 [facility] [place] Multiple Multiple Problem Active 2016-02-16 Memoria sclerosis sclerosis 00:25:42 l (disorder) (disorder) He rmann Active Problem 02/16/[address] [facility] Osteoarthr Osteoarth Problem Active 2016-02-16 Memoria itis ritis 00:25:42 l (disorder) (disorder) He rmann Active Problem 02/16/[address] [facility] Drug Drug Problem Active 2016-02-16 Memor ia overdose overdose 00:25:42 l (disorder) (disorder) He rmann Active Problem 02/16/2016 [facility] Rheumatoid Rheumatoi Problem Active 2016-02-16 Memoria arthritis d 00:25:42 l (disorder) arthritis Her sarkar (disorder) Active Problem 02/16/2016 [facility] Respirator Problem Active 2016-02-16 M emoria y failure Respirator 00:25:42 l (disorder) y failure Her sarkar (disorder) Active Problem 02/16/2016 [facility] Uterine Uterine Problem Active 2016-02-16 Me moria leiomyoma leiomyoma 00:25:42 l (disorder) (disorder) He rmann Active Problem 02/16/2016 [facility] Urinary Urinary Problem Active 2016-02-16 Me moria tract tract 00:25:42 l infectious infectious He rmalem disease disease (disorder) (disorder) Active Problem 02/16/2016 [facility] 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 History of Past Illness Condition Condition Condition Status Onset Resolution Last Treating Co mments Source Name Details Category Date Date Treatment Clinician Date Discharge Discharge Problem 2016-02-16 2016-02-16 Memoria Diagnosis: Diagnosis: 02-12 00:25:42 00:25:42 l Anemia, Anemia, 05:00: Darby unspecifie unspecifie 00 d d 02/13/2016 6 [facility] Discharge Discharge Problem 2016-02-16 2016-02-16 Memoria Diagnosis: Diagnosis: 02-12 00:25:42 00:25:42 l Abnormal Abnormal 05:00: Jordy n uterine uterine 00 and and vaginal vaginal bleeding, bleeding, unspecifie unspecifie d d 02/13/2016 02/16/2016 [facility] Discharge Discharge Problem 2014-09-06 2014-09-06 Memoria Diagnosis: Diagnosis: 09-04 16:01:45 16:01:45 l Vaginal Vaginal 06:00: Antonio bleeding bleeding 00 09/04/2014 09/06/2014 [facility] Discharge Problem 2014-09-06 2014-09-06 Memoria Diagnosis: Discharge 09-04 16:01:45 16:01:45 l Dysmenorrh Diagnosis: 06:00: Dru soares ea Dysmenorrh 00 ea 09/04/2014 09/06/2014 [facility] Discharge Problem 2014-2014-08-26 2014-08-26 Memoria Diagnosis: Discharge 08-24 17:22:44 17:22:44 l Nausea Diagnosis: 06:00: Jordy n Nausea 00 08/24/2014 08/26/2014 [facility] Discharge Discharge Problem 2014-08-26 2014-08-26 Memoria Diagnosis: Diagnosis: 08-24 17:22:44 17:22:44 l Constipati Constipati 06:00: He rmann on on 08/24/2014 08/26/2014 [facility] Allergies, Adverse Reactions, Alerts Allergy [...] 00 Medical Branch VANCOMYC DRUG Active Hives 2023-0 Univers IN INGREDI 08-14 ity of 00:00: [place] 00 Medical Branch Povidone Allergy Active UT Iodine to 04-25 Health substanc 00:00: e 00 Latex Allergy Active UT to 04-25 Health substanc 00:00: e 00 Nsaids Propensi Active UT ty to 04-25 Health adverse 00:00: reaction 00 s Citalopr Propensi Active Itching Burning UT am ty to 09-16 skinBurni Health adverse 00:00: ng reaction 00 skinBurni s ng skin Citalopr Propensi Active Itching Burning Meth ketty am ty to 09-[address] adverse 00:00: Hospita reaction 00 l s to drug Tramadol Propensi Active Seizure 2017-08 migraines Me thodi ty to 09-23 st adverse 00:00: Hospita reaction 00 l s to drug IODINE Allergy Active High Anaphylaxis [facility] AND 11-07 IODIDE 00:00: CONTAINI 00 NG PRODUCTS KETOROLA Allergy Active [facility] C 11-07 00:00: 00 Ketorola Propensi Active Other (See migraines Methodi c ty to Comments) 11-07 st adverse 00:00: Hospita reaction 00 l s to drug Iodine Drug [facility] I[facility] Medical Containi 00 Center ng Products Ketorola Drug Active [facility] Intolera 11[facility]07 [facility] nce 00:00: Medical 00 Center Iodine Propensi Active Anaphylaxis 2017- Met hodi And ty to 10-19 st [...] [facility] IN 2-13 ANALOGUE 00:00: S 00 Vancomyc Propensi Active Hives Method i in ty to 2-13 st Analogue adverse 00:00: Hospita s reaction 00 l s to drug Tramadol Propensi Active [facility] adverse 00:00: Medical reaction 00 Center s Vancomyc Propensi Active [facility] ty to 2-13 [facility] Analogue adverse 00:00: Medical s reaction 00 Center s POVIDONE Allergy Active 2013-08 [facility] -IODINE 0-03 00:00: 00 LATEX Allergy Active 2013-08 [facility] 0-03 00:00: 00 LEVOFLOX Allergy Active 2013-08 [facility] ACIN 0-03 00:00: 00 PROMETHA Allergy Active 2013-08 [facility] ZINE 0-03 00:00: 00 Levoflox Propensi Active Anaphylaxis 2013-08 Tongue M [...] Active Memori a d d 8-09 l [employer] radiocon 00:00: Jordy roberto trast trast 00 dyes dyes Levaquin Levaquin Active Memori a 8-09 l 00:00: Antonio 00 Phenerga Phenerga Active 2002-0 Memori a n n 8-09 l 00:00: Antonio 00 Vancomyc Allergy Active UT in HCl to drug Physici SOLR (finding ans ) STEROIDS Allergy Active [facility] Food Food Active Memoria Seafood Seafood l Antonio Latex Latex Active Memoria l Darby morphine morphine Active Memori a l Darby vancomyc vancomyc Active Memori a in in l Darby Elavil Elavil Active Memoria l Darby Betadine Allergy Active UT SOLN to drug Physici (finding ans ) Latex Allergy Active UT Exam to drug Physici Gloves (finding ans MISC ) Levaquin Allergy Active UT to drug Physici (finding ans ) Phenerga Allergy Active UT n to drug Physici (finding ans ) Family History Family Member Diagnosis Comments Start Date Stop Date Source Maternal aunt Melanoma [facility] Maternal aunt Cancer [facility] Maternal uncle Leukemia [facility] Maternal grandfather Stroke [facility] Natural mother Diabetes [facility] Natural sister Stroke [facility] Family member No history of Methodis t cancer Hospital Social History Social Habit Start Date Stop Date Quantity Comments Source Gender identity 2020-05-06 Identifies as Method ist 15:03:15 female gender [facility] (finding) Sexual orientation 2020-05-06 Heterosexual Meth odist 15:03:15 (finding) Hospital History SDOH Protestant Alcohol Frequency Hospita l History SDOH Protestant Alcohol Std Drinks Hospit al History SDOH Protestant Alcohol Binge Hospital Exposure to 2022-12-01 2022-12-11 Not sure University of SARS-CoV-2 (event) 00:00:00 20:24:00 [facility] History of Social 2021-06-29 2021-06-[address] function 00:00:00 00:00:00 Hospital Alcohol intake 2021-05-05 2021-05-05 Current non-drinker [facility] 00:[facility]00 of [facility] (finding) Tobacco use and 2021-04-25 2021-04-25 Smokeless tobacco [facility] exposure 00:00:00 00:00:00 non-user Alcohol Comment 2018-08-02 2018-08-[address] 00:00:00 00:00:00 Hospital Sex Ass[birth year] At [birth year] LANA Cruz 00:00:00 00:00:00 Medical Center Smoking Status Start Date Stop Date Source Tobacco smoking consumption [facility] Medical unknown Branch Social History [facility] Medications Ordered Filled Start Stop Current Ordering Indication Dosage Frequency Signature Comments Components Source Medication Medication Date Date Medication? Clinician (SIG) Name Name morpHINE (4 2022- No 4mg 4 mg, Slow Univers mg/mL) 12-12 IV Push, ity of injection 4 06:00: 06:03 [place] 00 :[place] dose, On Medical Sun12/12/22 Branch at 0100, STAT dicyclomine 2022- No 20mg 20 mg, Uni vers (BENTYL) 12-12 Intramuscu ity of injection 04:45: 04:41 lar, ONCE, [place] 20 mg 00 :00 1 dose, On Medical 12/11/22 Branch at 2345, Routine ondansetron Yes [id number] 4mg Take 1 Univers (ZOFRAN) 4 5-02 tablet by ity of mg tablet 00:00: mouth [place] 00 every 8 Medical (eight) Branch hours as needed for Nausea and Vomiting (N/V). dicyclomine 0 Yes [id number] 20mg Take 1 Univers 20 mg 5-02 [...] Pain (scale 7-10). Indication s: acute pain ondansetron 2022-0 Yes [id number] 4mg Take 1 Univers (ZOFRAN) 4 5-02 tablet by ity of mg tablet 00:00: mouth [place] 00 every 8 Medical (eight) Branch hours as needed for Nausea and Vomiting (N/V). dicyclomine 2022-0 Yes [id number] 20mg Take 1 Univers 20 mg 5-02 [...] of 1,000 mg in 21:15: 23:18 Piggyback, [place] NaCl 0.9% 00 :00 ONCE, 1 Medical (NS) 100 mL dose, On Bran ch MINI-BAG Sun11/27/22 at 1615, Administer over 30 Minutes, 100 mL
Reas on for Anti-Infec tive: Documented Infection< br>Documen gaye Infection Site: Urine<br&g t;Duration of Therapy: 7 days cefpodoxime 2022- Yes [id number] 100mg Take 1 Univers 100 mg 11-27 tablet by ity of tablet 00:00: 04:59 mouth in [place] 00 :00 the Medical morning Branch and [...] dose, On Sun08/14/22 at 2200, STAT levETIRAcet 0 2022- No 1000mg 1,000 mg, Univers am (KEPPRA) 08-15 IV ity of in NACL 03:00: 04:33 Piggyback, [place] as (ISO-OS) 00 :00 ONCE, 1 Medical 1,000 dose, On Branch mg/100 mL Sun08/14/22 RTU at 2100, Administer over 15 Minutes, 100 mL levETIRAcet 2022-0 Yes [id number] 1000mg Take 1 Univers am (KEPPRA) 1-02 tablet by ity of 1,000 mg 00:00: mouth in [place] tablet 00 the Medical morning Branch and 1 tablet in the evening. Lacosamide 2022-0 Yes [id number] 200mg Take 1 Univers (VIMPAT) 1-02 tablet by ity of 200 mg 00:00: mouth in [place] tablet 00 the Medical morning Branch and 1 tablet in the evening. ALPRAZolam 2022-0 Yes [id number] .25mg Take 1 Univers (XANAX) 1-02 tablet by ity of 0.25 mg 00:00: mouth in [place] tablet 00 the Medical morning Branch and 1 tablet at noon and 1 tablet in the evening. levETIRAcet 2022-0 Yes [id number] 1000mg Take 1 Univers am (KEPPRA) 1-02 tablet by ity of 1,000 mg 00:00: mouth in [place] tablet 00 the Medical morning Branch and 1 tablet in the evening. Lacosamide 2022-0 Yes [id number] 200mg Take 1 Univers (VIMPAT) 1-02 tablet by ity of 200 mg 00:00: mouth in [place] tablet 00 the Medical morning Branch and 1 tablet in the evening. ALPRAZolam 2022-0 Yes [id number] .25mg Take 1 Univers (XANAX) 1-02 tablet by ity of 0.25 mg 00:00: mouth in [place] tablet 00 the Medical morning Branch and 1 tablet at noon and 1 tablet in the evening. levETIRAcet 3-0 Yes [id number] 1000mg Take 1 Univers am (KEPPRA) 1-02 tablet by ity of 1,000 mg 00:00: mouth in [place] tablet 00 the Medical morning Branch and 1 tablet in the evening. Lacosamide 3-0 Yes [id number] 200mg Take 1 Univers (VIMPAT) 1-02 tablet by ity of 200 mg 00:00: mouth in [place] tablet 00 the Medical morning Branch and 1 tablet in the evening. ALPRAZolam 3-0 Yes [id number] .25mg Take 1 Univers (XANAX) 1-02 tablet by ity of 0.25 mg 00:00: mouth in [place] tablet 00 the Medical morning Branch and 1 tablet at noon and 1 tablet in the evening. levETIRAcet 3-0 Yes [id number] 1000mg Take 1 Univers am (KEPPRA) 1-02 tablet by ity of 1,000 mg 00:00: mouth in [place] tablet 00 the Medical morning Branch and 1 tablet in the evening. Lacosamide 3-0 Yes [id number] 200mg Take 1 Univers (VIMPAT) 1-02 tablet by ity of 200 mg 00:00: mouth in [place] tablet 00 the Medical morning Branch and 1 tablet in the evening. ALPRAZolam 3-0 Yes [id number] .25mg Take 1 Univers (XANAX) 1-02 tablet by ity of 0.25 mg 00:00: mouth in [place] tablet 00 the Medical morning Branch and 1 tablet at noon and 1 tablet in the evening. levETIRAcet 3-0 Yes [id number] 1000mg Take 1 Univers am (KEPPRA) 1-02 tablet by ity of 1,000 mg 00:00: mouth in [place] tablet 00 the Medical morning Branch and 1 tablet in the evening. Lacosamide 3-0 Yes [id number] 200mg Take 1 Univers (VIMPAT) 1-02 tablet by ity of 200 mg 00:00: mouth in [place] tablet 00 the Medical morning Branch and 1 tablet in the evening. ALPRAZolam 3-0 Yes [id number] .25mg Take 1 Univers (XANAX) 1-02 tablet by ity of 0.25 mg 00:00: mouth in [place] tablet 00 the Medical morning Branch and 1 tablet at noon and 1 tablet in the evening. acetaminoph 2020-08- No [id number] 1{tbl} Q6H Take 1 Methodi en-codeine 08-29-[address] (TYLENOL 00:00: 05:59 mouth Hospita WITH 00 :00 every 6 l CODEINE #3) (six) 300-30 mg hours as per tablet needed for moderate pain for up to 5 days .acute pain. acetaminoph 2020-08- No [id number] 1{tbl} Q6H Take 1 Methodi en-codeine 08-29- tablet by st (TYLENOL 00:00: 05:59 mouth Hospita WITH 00 :00 every 6 l CODEINE #3) (six) 300-30 mg hours as per tablet needed for moderate pain for up to 5 days .acute pain. No known No No known UT medications 9-13 medication He alth 12:13: s 10 No known No No known UT medications -13 medication He alth 12:13: s 10 bumetanide Yes [id number] 2mg QD Take 1 U T (Bumex) 2 9-13 tablet (2 Healt h MG tablet 00:00: mg total) 00 by mouth 1 (one) time each day. lisinopril Yes [id number] 2.5mg QD Take 1 UT 2.5 MG 9-13 tablet Health tablet 00:00: (2.5 mg 00 total) by mouth 1 (one) time each day. metoprolol Yes [id number] 50mg Q.5D Take 1 U T succinate [...] 50 MG 24 hr tablet lisinopril Yes [id number] 2.5mg QD Take 1 UT 2.5 MG - tablet Health tablet 00:00: (2.5 mg 00 total) by mouth 1 (one) time each day. metoprolol Yes [id number] 50mg Q.5D Take 1 U T succinate - tablet (50 Heal th XL 00:00: mg total) (Toprol-XL) 00 by mouth 2 50 MG 24 hr (two) tablet times a day. lisinopril 2020- No [id number] 2.5mg QD Take 1 UT 2.5 MG -04-25 tablet Health tablet 00:00: 00:00 (2.5 mg 00 :00 total) by mouth 1 (one) time each day. metoprolol 2020- No [id number] 50mg Q.5D Take 1 UT succinate -04-25 [...] Hospita capsule 59 l busPIRone Yes 15mg Q.[id number] Take 15 mg Methodi (BUSPAR) 10 4-26 [id number] [address] mouth [address] MG tablet 16:32: [...] capsule 59 l busPIRone 0 Yes 15mg Q.[id number] Take 15 mg [facility]i (BUSPAR) 10 -26 [id number] [address] mouth 3 [address] MG tablet 11:32: [...] capsule 59 l busPIRone 0 Yes 15mg Q.[id number] Take 15 mg [facility] (BUSPAR) 10 4-26 [id number] by mouth 3 [address] MG tablet 11:32: [...] capsule 59 l busPIRone 2020-0 Yes 15mg Q.[id number] Take 15 mg Methodi (BUSPAR) 10 4-26 [id number] by mouth 3 [address] MG tablet 11:32: [...] capsule 59 l busPIRone 0 Yes 15mg Q.[id number] Take 15 mg [facility]i (BUSPAR) 10 4-26 [id number] by mouth 3 [address] MG tablet 11:32: [...] capsule 59 l busPIRone 0 Yes 15mg Q.[id number] Take 15 mg [facility]i (BUSPAR) 10 4-26 [id number] by mouth 3 [address] MG tablet 11:32: [...] Hospita capsule 59 l busPIRone Yes 15mg Q.[id number] Take 15 mg Methodi (BUSPAR) 10 -26 [id number] [address] mouth [address] MG tablet 11:32: [...] capsule 59 l busPIRone 0 Yes 15mg Q.[id number] Take 15 mg Methodi (BUSPAR) 10 -26 [id number] by mouth 3 [address] MG tablet 11:32: [...] Hospita capsule 59 l busPIRone Yes 15mg Q.[id number] Take 15 mg Methodi (BUSPAR) 10 -26 [id number] by mouth 3 [address] MG tablet 11:32: [...] Hospita capsule 59 l busPIRone Yes 15mg Q.[id number] Take 15 mg Methodi (BUSPAR) 10 4-26 [id number] by mouth 3 [address] MG tablet 11:32: [...] capsule 59 l busPIRone 2020-0 Yes 15mg Q.[id number] Take 15 mg [facility]i (BUSPAR) 10 4-26 [id number] by mouth [address] MG tablet 11:32: [...] hours for 10 days. acetaminoph 2020- No [id number] 1{tbl} Q6H Take 1-2 Methodi en-codeine 3- 03-[address] (TYLENOL 00:00: 04:59 mouth Hospita WITH 00 :00 every 6 l CODEINE #3) (six) 300-30 mg hours as per tablet needed for moderate pain for up to 5 days .acute pain. acetaminoph 2020- No [id number] 1{tbl} Q6H Take 1-2 Methodi en-codeine 3-24 03-[address] (TYLENOL 00:00: 04:59 mouth Hospita WITH 00 :00 every 6 l CODEINE #3) (six) 300-30 mg hours as per tablet needed for moderate pain for up to 5 days .acute pain. acetaminoph 2020- [place] [id number] 1{tbl} Q6H Take 1-2 Methodi en-codeine 3-24 [...] sleep for up to 5 days. amoxicillin 2020-1 2020- No 1{tbl} Q12H Take 1 M ethodi -pot 2-04 12-[address] clavulanate 00:00: 05:59 mouth Hosp arcenio (AUGMENTIN) 00 :00 every 12 l 875-125 mg (twelve) per tablet hours for 10 days. metoprolol 2019- 2020- No 100mg Take 100 M ethodi tartrate 05-08- mg by st (LOPRESSOR) 17:49: 00:00 mouth. Hos denise 100 mg 43 :00 l tablet morPHINE 2019-0 2020- No 30mg Q.5D Take 30 mg Me thodi (MS CONTIN) 05-08 by mouth 2 s t 30 MG 12 hr 17:49: 00:00 (two) Hosp arcenio tablet 43 :00 times a l day. Extended Release HYDROcodone 2019- 2020- No Q.5D Take by Me thodi -acetaminop 05-[address] hen (NORCO) 17:49: 00:00 (two) Hosp arcenio 5-325 mg 43 :00 times a l per tablet day. diazePAM 2020- No 10mg Q.[id number] Take 10 mg Methodi (VALIUM) 5 05-08 [id number] [address] mouth [address] MG tablet 17:49: [...] (two) l tablet times a day. metoprolol 0 2020- No 50mg Q.5D Take 50 mg Methodi succinate 05-[address] XL 16:17: 00:00 (two) Hospita (TOPROL-XL) 20 :00 times a l 50 mg 24 hr day. tablet lisinopriL 2019- No 2.5mg QD Take 2.5 M ethodi (PRINIVIL) 05-08- mg by st 2.5 mg 16:17: 00:00 mouth Hospita tablet 20 :00 daily. l butalbital- 2020- No 1{tbl} Q4H Take 1 M ethodi acetaminoph 05-[address] en-caff 00:00: 04:59 mouth Hospita (FIORICET) 00 :00 every 4 l 50-325-40 (four) mg per hours as tablet needed for headaches or migraine for up to 30 days. lactulose 2019- 2020- No 20g Q.[id number] Take 30 mL Methodi 20 gram/30 05-08 [id number] (20 g s t mL solution 00:00: 04:59 3D total) by Hospita 00 :00 mouth 3 l (three) times a day as needed (CONSTIPAT ION) for up to 30 days. meclizine 2019- 2020- No 25mg Q.[id number] Take 1 Methodi (ANTIVERT) 05-08 [id number] tablet (25 st 25 mg 00:00: 04:59 3D mg total) Hospit a tablet 00 :00 by mouth 3 l (three) times a day as needed for dizziness for up to 30 days. pregabalin 2019- 2020- No 50mg Q.[id number] Take 2 Methodi (LYRICA) 25 05-[id number] MG capsule 00:00: 04:59 3D (50 mg Hosp arcenio 00 :00 total) by l mouth 3 (three) times a day for 30 days. lisinopriL 2019- 2020- No 2.5mg QD Take 1 Met hodi (PRINIVIL) 05-[address] 2.5 mg 00:00: 04:59 (2.5 mg Hospita tablet 00 :00 total) by l mouth daily for 30 days. metoprolol 2019- 2020- No 50mg Q.5D Take 1 Meth ketty succinate 05-08 tablet (50 st XL 00:00: 04:59 mg total) Hospita (TOPROL-XL) 00 :00 by mouth 2 l 50 mg 24 hr (two) tablet times a day for 30 days. levETIRAcet 2020-0 2020- No 500mg Q.5D Take 1 Me [...] 2 Center (two) times daily. dicyclomine 2020-0 2020- No 20mg Q.5D Take [address] (BENTYL) 20 6-24 06-24 tablet (20 L ukes mg tablet 00:00: 23:59 mg total) Me dical 00 :00 by mouth 2 Center (two) times daily. dicyclomine 2020-0 2020- No 20mg Q.5D [...] Memoria 7- Route: l 09:11: IVP, Drug Darby form: INJ, ONCE, Dosing Weight 68.182, kg, [...] Memoria 7-03 Route: l 09:11: IVP, Drug Darby 00 form: INJ, ONCE, Dosing Weight 68.182, kg, Priority: STAT, Start date: 02/13/16 4:11:00 CDT, Stop date: 02/13/16 4:11:00 CDT Sodium 2016-0 No 1,000 mL, Memori a Chloride 7- Rate: l 0.9% IV 09:11: 1,000 Darby 1000 mL 00 ml/hr, Infuse over: 1 [...] 7-03 Rate: l 0.9% IV 09:11: 1,000 Darby 1000 mL 00 ml/hr, Infuse over: 1 hr, Route: IV, Dosing Weight 68.182 kg, Total Volume: 1,000, Start date: 02/13/16 4:11:00 CDT, Duration: 1 doses or times, Stop date: 02/13/16 5:10:00 CDT, Bolus Dose Reglan 2016-0 No 10 mg, Memoria 7-03 Route: l 09:11: IVP, Drug Darby 00 form: INJ, ONCE, Dosing Weight 68.182, kg, Priority: STAT, Start date: 02/13/16 4:11:00 CDT, Stop date: 02/13/16 4:11:00 CDT Sodium 2016-0 No 1,000 mL, Memori a Chloride 7-03 Rate: l 0.9% IV 09:11: 1,000 Darby 1000 mL 00 ml/hr, Infuse over: 1 hr, Route: IV, Dosing Weight 68.182 kg, Total Volume: 1,000, Start date: 02/13/16 4:11:00 CDT, Duration: 1 doses or times, Stop date: 02/13/16 5:10:00 CDT, Bolus Dose Reglan 2016-0 No 10 mg, Memoria 7-03 Route: l 09:11: IVP, Drug Darby 00 form: INJ, ONCE, Dosing Weight 68.182, [...] 7-03 Rate: l 0.9% IV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 Scheduled 2025-09-[address] [facility] 00:[facility]:00 (procedure) [code = Medical Center [id number]] Future Scheduled 2025-09-[address] [facility] 00:00:00 (procedure) [code = Medical Center 28263987] Future Scheduled 2025-09-[address] [facility] 00:00:00 (procedure) [code = [facility] 59328450] Future Scheduled 2025-09-[address] [facility] 00:00:00 (procedure) [code = [facility] [id number]] Future Scheduled 2025-09-[address] [facility] 00:00:00 (procedure) [code = Medical Center 65722932] Future Scheduled 2025-09-[address] [facility] 00:00:00 (procedure) [code = [facility] 58253145] Future Scheduled 2025-09-[address] [facility] 00:00:00 (procedure) [code = [facility] 34007010] Future Scheduled 2025-09-[address] [facility] 00:00:00 (procedure) [code = [facility] 70529917] Future Scheduled 2023-08-[address] [facility] 00:00:00 (procedure) [code = Medical Center 83202423] Future Scheduled 2023-04-[address] [facility] 00:00:00 (Season Ended) [code = Medic al Center INFLUENZA VACCINE (Season Ended)] Future Scheduled 2023-04-[address] [facility] 00:00:00 (Season Ended) [code = Medic al Center INFLUENZA VACCINE (Season Ended)] Future Scheduled 2023-04-13 Influenza Vaccine (#1[facility]00 [code = Influenza Medical Ce nter Vaccine (#1)] Future Scheduled 2023-01-26 [facility] 03:46:14 malignant neoplasm of colon (procedure) [code = 758648327] Future Scheduled 2023-01-26 [facility] Test 03:46:14 malignant neoplasm of colon (procedure) [code = 670700447] Future Scheduled 2023-01-26 [facility] Test 03:46:14 malignant neoplasm of colon (procedure) [code = 592557605] Future Scheduled 2023-01-26 [facility]ACCINE [facility] 03:46:14 [code = COVID-19 VACCINE (#1)] Future Scheduled 2023-01-26 [facility] 03:46:14 (procedure) [code = 732696950] Future Scheduled 2023-01-26 [facility] Test 03:46:14 malignant neoplasm of cervix (procedure) [code = 481857024] Future Scheduled 2023-01-26 BREAST [facility]ER [facility] Test 03:46:14 SCREENING [code = BREAST CANCER SCREENING] Future Scheduled 2023-01-26 [facility] Test 03:46:14 malignant neoplasm of colon (procedure) [code = 753249665] Future Scheduled 2023-01-26 [facility] Test 03:46:14 malignant neoplasm of colon (procedure) [code = 845437726] Future Scheduled 2023-01-26 [facility]ACCINE [facility] 03:46:14 [code = INFLUENZA VACCINE] Future Scheduled 2022-11-17 COVID-19 VACCINE (#1) [facility] Test 15:00:57 [code = COVID-19 VACCINE (#1)] Future Scheduled 2022-11-17 [facility]:00:57 (procedure) [code = 865779741] Future Scheduled 2022-11-17 [facility] 15:00:57 malignant neoplasm of cervix (procedure) [code = 501448656] Future Scheduled 2022-11-17 [facility] 15:00:57 SCREENING [code = BREAST CANCER SCREENING] Future Scheduled 2022-11-17 COLONOSCOPY SCREENING [facility] Test 15:00:57 [code = COLONOSCOPY SCREENING] Future Scheduled 2022-11-17 INFLUENZA VACCINE [facility] Test 15:00:57 [code = INFLUENZA VACCINE] Future Scheduled 2022-11-17 COVID-19 VACCINE (#1) [facility] Test 15:00:57 [code = COVID-19 VACCINE (#1)] Future Scheduled 2022-11-17 Hepatitis C screening [facility] Test 15:00:57 (procedure) [code = 101334588] Future Scheduled 2022-11-17 [facility] Test 15:00:57 malignant neoplasm of cervix (procedure) [code = 608518793] Future Scheduled 2022-11-17 BREAST CANCER [facility] Test 15:00:57 SCREENING [code = BREAST CANCER SCREENING] Future Scheduled 2022-11-17 COLONOSCOPY SCREENING [facility] Test 15:00:57 [code = COLONOSCOPY SCREENING] Future Scheduled 2022-11-17 INFLUENZA VACCINE [facility] Test 15:00:57 [code = INFLUENZA VACCINE] [...] (12+)] Future Scheduled 2022-07-28 COVID-19 VACCINE (#1) [facility] Test 06:02:12 [code = COVID-19 VACCINE (#1)] Future Scheduled 2022-07-28 Hepatitis C screening [facility] Test 06:02:12 (procedure) [code = 426868630] Future Scheduled 2022-07-28 Screening for [facility] Test 06:02:12 malignant neoplasm of cervix (procedure) [code = 826248571] Future Scheduled 2022-07-28 BREAST CANCER [facility] Test 06:02:12 SCREENING [code = BREAST CANCER SCREENING] Future Scheduled 2022-07-28 COLONOSCOPY SCREENING [facility] Test 06:02:12 [code = COLONOSCOPY SCREENING] Future Scheduled 2022-07-28 INFLUENZA VACCINE [facility] Test 06:02:12 [code = INFLUENZA VACCINE] Future Scheduled 2022-07-28 COVID-19 VACCINE (#1) [facility] Test 06:02:12 [code = COVID-19 VACCINE (#1)] Future Scheduled 2022-07-28 Hepatitis C screening [facility] Test 06:02:12 (procedure) [code = 691465000] Future Scheduled 2022-07-28 [facility] Test 06:02:12 malignant neoplasm of cervix (procedure) [code = 330191504] Future Scheduled 2022-07-28 [facility] Test 06:02:12 SCREENING [code = BREAST CANCER SCREENING] Future Scheduled 2022-07-28 COLONOSCOPY SCREENING [facility] Test 06:02:12 [code = COLONOSCOPY SCREENING] Future Scheduled 2022-07-28 INFLUENZA VACCINE [facility] Test 06:02:12 [code = INFLUENZA VACCINE] Future Scheduled 2022-07-28 COVID-19 VACCINE (#1) [facility] Test 06:02:12 [code = COVID-19 VACCINE (#1)] Future Scheduled 2022-07-28 Hepatitis C screening [facility] Test 06:02:12 (procedure) [code = 195543896] Future Scheduled 2022-07-28 [facility] Test 06:02:12 malignant neoplasm of cervix (procedure) [code = 981924296] Future Scheduled 2022-07-28 [facility] Test 06:02:12 SCREENING [code = BREAST CANCER SCREENING] Future Scheduled 2022-07-28 COLONOSCOPY SCREENING [facility] Test 06:02:12 [code = COLONOSCOPY SCREENING] Future Scheduled 2022-07-28 INFLUENZA VACCINE Method [facility] Hospital Test 06:02:12 [code = INFLUENZA VACCINE] Future Scheduled 2022-07-28 COVID-19 VACCINE (#1) [facility] Test 06:02:12 [code = COVID-19 VACCINE (#1)] Future Scheduled 2022-07-28 Hepatitis C screening [facility] Test 06:02:12 (procedure) [code = 905365652] Future Scheduled 2022-07-28 Screening for [facility] Test 06:02:12 malignant neoplasm of cervix (procedure) [code = 667811263] Future Scheduled 2022-07-28 BREAST CANCER [facility] Test 06:02:12 SCREENING [code = BREAST CANCER SCREENING] Future Scheduled 2022-07-28 COLONOSCOPY SCREENING [facility] Test 06:02:12 [code = COLONOSCOPY SCREENING] Future Scheduled 2022-07-28 INFLUENZA VACCINE Method [facility] Test 06:02:12 [code = INFLUENZA VACCINE] Future Scheduled 2022-07-28 COVID-19 VACCINE (#1) [facility] Test 06:02:12 [code = COVID-19 VACCINE (#1)] Future Scheduled 2022-07-28 Hepatitis C screening [facility] Test 06:02:12 (procedure) [code = 561669955] Future Scheduled 2022-07-28 Screening for [facility] Test 06:02:12 malignant neoplasm of cervix (procedure) [code = 728662689] Future Scheduled 2022-07-28 BREAST CANCER [facility] Test 06:02:12 SCREENING [code = BREAST CANCER SCREENING] Future Scheduled 2022-07-28 COLONOSCOPY SCREENING [facility] Test 06:02:12 [code = COLONOSCOPY SCREENING] Future Scheduled 2022-07-28 INFLUENZA VACCINE Method [facility] Test 06:02:12 [code = INFLUENZA [...] Future Scheduled 2021-06-29 COVID-19 VACCINE (1) [facility] Test 11:36:01 [code = COVID-19 VACCINE (1)] Future Scheduled 2021-06-29 Hepatitis C screening [facility] Test 11:36:01 (procedure) [code = 599943168] Future Scheduled 2021-06-29 [facility] Test 11:36:01 malignant neoplasm of cervix (procedure) [code = 310116047] Future Scheduled 2021-06-29 INFLUENZA VACCINE [facility] Test 11:36:01 [code = INFLUENZA VACCINE] Future Scheduled 2021-06-29 COVID-19 VACCINE (1) [facility] Test 11:36:01 [code = COVID-19 VACCINE (1)] Future Scheduled 2021-06-29 Hepatitis C screening Me [facility] Test 11:36:01 (procedure) [code = 209782012] Future Scheduled 2021-06-29 [facility] Test 11:36:01 malignant neoplasm of cervix (procedure) [code = 560630622] Future Scheduled 2021-06-29 INFLUENZA VACCINE [facility] (12[facility] [code = [facility] DEPRESSION SCREENING (12+)] Future Scheduled 2020-08-[address] [facility] Test 00:00:00 (12+) [code = [facility] DEPRESSION SCREENING (12+)] Future Scheduled 2020-04-13 INFLUENZA VACCINE (#1) [facility]:00[facility]00 [code = INFLUENZA Medical Ce nter VACCINE (#1)] Future Scheduled [address] [facility] malignant neoplasm of Medica [facility] Center cervix (procedure) [code = 035785328] Future Scheduled [address] [facility] 00:00:00 malignant neoplasm of [facility]ica [facility] Center cervix (procedure) [code = 304529430] Future Scheduled [address] [facility] 00:00:00 malignant neoplasm of Medica l Center cervix (procedure) [code = 576728643] Future Scheduled [address] [facility] 00:00:00 malignant neoplasm of Medica [facility] Center cervix (procedure) [code = 243290877] Future Scheduled [address] [facility] 00:00:00 malignant neoplasm of Medica l Center cervix (procedure) [code = 747022167] Future Scheduled [address] [facility] 00:00:00 malignant neoplasm of Medica [facility] Center cervix (procedure) [code = 392052684] Future Scheduled [address] [facility] 00:00:00 malignant neoplasm of Medica l Center cervix (procedure) [code = 324259925] Future Scheduled [address] [facility] Test 00:00:00 malignant neoplasm of Medica [facility] Center cervix (procedure) [code = 922797491] Future Scheduled [address] [facility] Test 00:00:00 malignant neoplasm of Medica [facility] Center cervix (procedure) [code = 341234501] Future Scheduled [address] [facility] 00:00:00 malignant neoplasm of [facility]ica [facility] Center cervix (procedure) [code = 791357612] Future Scheduled [address] [facility] Test 00:00:00 malignant neoplasm of [facility] Center cervix (procedure) [code = 092948676] Future Scheduled 1991 HEPATITIS C SCREENING CH [...] Medica l Center colon (procedure) [code = 431147794] Future Scheduled [address] [facility] Test 00:00:00 malignant neoplasm of [facility]ica [facility] Center colon (procedure) [code = 394797652] Future Scheduled [address] [facility] Test 00:00:00 malignant [facility]oplasm of [facility] Center colon (procedure) [code = 022132408] Future Scheduled [address] [facility] 00:00:00 malignant neoplasm of Medica l Center colon (procedure) [code = 059321973] Future Scheduled 1973 Sigmoidoscopy [facility] [address] [facility] 00:00:00 (combo) [code = CT Medical C enter Colonography (combo)] Future Scheduled [address] [facility] Test 00:00:00 malignant neoplasm of Medica l Center colon (procedure) [code = 420407552] Future Scheduled [address] [facility] 00:00:00 malignant neoplasm of [facility]ica [facility] Center colon (procedure) [code = 251554163] Future Scheduled [address] [facility] 00:00:00 malignant neoplasm of [facility]ica [facility] Center colon (procedure) [code = 002982979] Future Scheduled [address] [facility] 00:00:00 malignant neoplasm of Medica l Center colon (procedure) [code = 774379760] Future Scheduled 1973 [facility]oscopy [facility] Future Scheduled [address] [facility] 00:00:00 (combo) [code = CT Medical C enter Colonography (combo)] Future Scheduled [address] [facility] 00:00:00 malignant neoplasm of Medica l Center colon (procedure) [code = 673523390] Future Scheduled [address] [facility] Test 00:00:00 malignant neoplasm of Medica l Center colon (procedure) [code = 607051858] Future Scheduled [address] [facility] 00:00:00 malignant neoplasm of Medica l Center colon (procedure) [code = 325292026] Future Scheduled [address] [facility] 00:00:00 malignant neoplasm of Medica [facility] Center colon (procedure) [code = 202496603] Future Scheduled 1973 [facility]oscopy [facility] [address] [facility] 00:00:00 (combo) [code = CT Medical C enter Colonography (combo)] Future Scheduled [address] [facility] 00:00:00 malignant neoplasm of Medica l Center colon (procedure) [code = 129040795] Future Scheduled [address] [facility] 00:00:00 malignant neoplasm of Medica l Center colon (procedure) [code = 389239229] Future Scheduled [address] [facility] 00:00:00 malignant neoplasm of Medica l Center colon (procedure) [code = 426979699] Future Scheduled [address] [facility] 00:00:00 malignant neoplasm of Medica l Center colon (procedure) [code = 548496895] Future Scheduled 1973 [facility] [address] [facility] 00:00:00 (combo) [code = CT Medical C enter Colonography (combo)] Future Scheduled [address] [facility] Test 00:00:00 malignant neoplasm of Medica l Center colon (procedure) [code = 468085740] Future Scheduled [address] [facility] 00:00:00 malignant neoplasm of Medica l Center colon (procedure) [code = 267525030] Future Scheduled [address] [facility] 00:00:00 malignant neoplasm of Medica l Center colon (procedure) [code = 041885757] Future Scheduled [address] [facility] Test 00:00:00 malignant neoplasm of Medica l Center colon (procedure) [code = 499781249] Future Scheduled 1973 S[facility]oidoscopy [facility]] Medical Krista avila Future Scheduled [address] [facility] 00:00:00 (combo) [code = CT Medical C enter Colonography (combo)] Future Scheduled [address] [facility] 00:00:00 malignant neoplasm of Medica l Center colon (procedure) [code = 492067784] Future Scheduled [address] [facility] Test 00:00:00 malignant neoplasm of Medica l Center colon (procedure) [code = 917230230] Future Scheduled [address] [facility] 00:00:00 malignant neoplasm of Medica l Center colon (procedure) [code = 767256274] Future Scheduled [address] [facility] Test 00:00:00 malignant neoplasm of Medica l Center colon (procedure) [code = 674332492] Future Scheduled 1973 Sigmoidoscopy [code = [facility] S[facility]oscopy] Medical Krista avila Future Scheduled [address] [facility] 00:[facility]00 (combo) [code = CT Medical C enter Colonography (combo)] Future Scheduled [address] [facility] colon (procedure) [code = 051885976] Future Scheduled [address] [facility] colon (procedure) [code = 259016491] Future Scheduled [address] [facility] 00[facility]00 [facility] colon (procedure) [code = 162133636] Future Scheduled [address] [facility] 00:[facility]:00 [facility] colon (procedure) [code = 833015675] Future Scheduled 1973 Sigmoidoscopy [code = [facility]] Medical Cent[facility] r Future Scheduled [address] [facility] 00:[facility]00 [facility] colon (procedure) [code = 945027346] Future Scheduled [address] [facility] 00:[facility]00 [facility] colon (procedure) [code = 849859112] Future Scheduled [address] [facility] 00:00:00 (combo) [code = CT Medical C enter Colonography (combo)] Future Scheduled [address] [facility] 00:[facility]:00 [facility] colon (procedure) [code = 778225156] Future Scheduled [address] [facility] 00[facility]00 [facility] colon (procedure) [code = 008749861] Future Scheduled [address] [facility] 00[facility]00 [facility] colon (procedure) [code = 448276648] Future Scheduled [address] [facility] 00:[facility] colon (procedure) [code = 380355325] Future Scheduled 1973 Sigmoidoscopy [code = [facility]] [facility] Krista r Future Scheduled COVID-19 [facility]ACCINE (1) [facility] = [facility] VACCINE (1)] Future Scheduled [facility] [code = 359714012] Future Scheduled [facility] Test malignant neoplasm of cervix (procedure) [code = 660614758] Future Scheduled INFLUENZA VACCINE [facility] [code = INFLUENZA VACCINE] Encounters Start End Encounter Admission Attending Care Care Encounter Source Date/Time Date/Time Type Type Clinicians Facility Department ID 2021-04-25 Outpatient [facility] [id number] [place] 12:28:46 [facility] 2020-12-18 Outpatient [facility] [id number] [place] 04:17:31 [facility] 2023-02-12 2023-02-12 Emergency [facility] [id number] Univers 16:33:00 16:46:00 CYNANTHONY ity of [facility] 2023-02-12 2023-02-12 [facility] 1.2.964.668 [id number] Univers 16:33:00 16:46:00 Fabricio GUTIERREZPRAVEENA 350.1.13.10 i ty of [place] 4.2.7.2.686 [facility] [id number] [address] 2022-12-11 2022-12-12 Emergency [facility] ERT [id number] Univers 20:26:00 02:05:00 MIHIR ity [facility] 2022-12-11 2022-12-12 [facility] 1.2.108.832 [id number] Univers 20:26:00 02:05:00 Cynthia Brannon SAMI 350.1.13.10 ity of [place] 4.2.7.2.6 [facility] [id number] [address] 2022-11-27 2022-11-27 Emergency X [facility] ERT [id number] Univers 13:12:00 20:16:00 SIMRAN kowalski [facility] 2022-11-27 2022-11-27 Emergency [facility] 1.2.236.703 [id number] [id number] Univers 13:12:00 20:16:00 Simran GALLARDO 350.1.13.10 i ty of [place] 4.2.7.2.6 [facility] [id number] [address] 2022-11-27 2022-11-27 Orders Doctor ELGIN 1.2.840.114 [id number] Univers 00:00:00 00:00:00 Only Unassigned, JOVANNA 350.1.13.10 [facility] 4.2.7.2.686 Donal [id number] [place] [address] [address] 2022-08-14 2022-08-14 Emergency [facility] 1.2.032.903 [id number] 3415 Univers 20:40:00 23:10:00 Halima GALLARDO 350.1.13.10 ity [facility] 4.2.7.2.686 [facility] [phone] [place] 8[address] [place] 2022-08-14 2022-08-14 Emergency X SAM, [facility] ERT [id number] Univers 20:40:00 23:10:00 HALIMA kowalski [facility] 2022-05-16 2022-05-16 Outpatient Arceneaux_C VFP VFP 221 1653-20 Village 00:00:00 00:00:00 [id number] Family Practic e 2021-06-29 2021-06-29 Emergency James, 1.2.840.1 [id number] 21 [id number] Methodi 10:17:00 12:01:00 Haroon Young 71372.1.[address] 3.430.2.7 Hospit a .3.908156 l .8 2021-06-29 2021-06-29 Travel 1.2.840.1 1.2.279.553 1618 529121 Methodi 00:00:00 00:00:[address] 3.430.2.7 0.2.7.3.698 Ho spita .3.971728 084.8 l .8 2021-05-05 2021-05-06 Emergency ER [facility] [id number] 20:22:00 01:24:00 Joe Lai [facility] 2021-05-05 2021-05-05 Emergency ER [facility] Emergency [id number] [facility] 20:07:00 20:07:00 2021-05-05 2021-05-05 Travel [facility] [id number] [facility] 00[facility]00[facility]00 [facility] 2021-04-25 2021-04-25 Office VINCE Olivares [facility] 1.2.840.114 [id number] [place] 10:00:00 12:28:43 Visit Leandro LISA 350.1.13.58 H kevyn AVALOS 4 9.2.7.2.686 [id number] 4 2021-02-18 2021-02-18 Emergency E MATTHIAS, [facility] 7503 [facility] 08:39:00 12:51:00 TEJAL 2021-02-08 2021-02-08 Orders Waleska Henriquez [facility] 1.2.840.11 4 [id number] ME 00:00:00 00:00:00 Only Waleska Henriquez [facility] 350.1.13.58 Health [place] 4 9.2.7.2.686 [id number] 4 2021-02-08 2021-02-08 Orders Florence [facility] 1.2.840.114 [id number] 9538 00:00:00 00:00:00 Only Waleska [facility] 350.1.13.58 PLAZA 4 9.2.7.2.686 [id number] 4 2020-12-20 2020-12-20 Telephone Vinson, 1.2.840.1 [id number] 2100 628591 Methodi 00:00:00 00:00:[address] 3.430.2.7 Hospit a .3.988057 l .8 2020-12-16 2020-12-[address] [facility] 7410 7276 [place] 11:00:00 11:00:00 t; LEANDRO OLIVARES, Advanced P jn PANTOJA M.D. Cardiology [facility] 2020-12-14 2020-12-14 Telephone Vinson, 1.2.840.1 [id number] 2100 553262 Methodi 00:00:00 00:00:[address] 3.430.2.7 Hospit a .3.511862 l .8 2020-12-07 2020-12-08 Outpatient E ERLINDA, [facility] PUL 7502 [facility] 17:43:00 13:15:00 VIRAL 2020-12-08 2020-12-08 EXT MH OP Santosh, EXT [facility] 1.2.840.114 1 [id number] [place] 00:00:00 00:00:00 Adnan LOCATION 350.1.13.58 H ealth 9.2.7.2.686 [id number] 0 2020-12-08 2020-12-08 EXT [facility] OP Santosh, EXT MSRDP 1.2.840.114 1 [id number] [place] 00:00:00 00:00:00 [facility] LOCATION 350.1.13.58 H ealt 9.2.7.2.686 [id number] 0 2020-12-06 2020-12-06 Appointmen JEANNIE CLARKE [facility] [id number] [place] 14:00:00 14:00:00 t; BANK ROSIO Phys ici millicent CHAMBERS SANDIPAN SANDIPAN PATI, M.D. PATI, M.D. 2020-12-03 2020-12-06 [facility] 1.2.840.1 [id number] Methodi 16:45:00 11:32:00 Encounter Obdulio Ragland 90517.1.[address] 3.430.2.7 Hospit a .3.020512 l .8 2020-12-02 2020-12-02 Appointmen [facility] [id number] [place] 11:15:00 11:15:00 t; LEANDRO OLIVARES, Surgery - Chalo Cruz M.D. 2020-11-17 2020-11-17 Emergency García, 1.2.840.1 [id number] 2100 [id number] Methodi 17:26:00 20:59:[address] Mendel 3.430.2.7 Hospit a .3.274608 l .8 2020-11-17 2020-11-17 Appointmen VINCE MATHEWS UTP [id number] 45 UT 15:00:00 15:00:00 t; Carter ROQUE i, M.D. ans ASHTON, M.D. 2020-11-17 2020-11-17 Travel 1.2.840.1 1.2.668.186 3915 827326 Methodi 00:00:00 00:00:[address] 3.430.2.7 0.2.7.3.698 Ho spita .3.579873 084.8 l .8 2020-11-02 2020-11-03 Emergency Dionicio, 1.2.840.1 [id number] 2 [id number] Methodi 23:00:00 01:47:[address] [facility] 3.430.2.7 Hospit a .3.154881 l .8 2020-11-02 2020-11-02 Travel 1.2.840.1 1.2.600.633 4814 821946 Methodi 00:00:00 00:00:[address] 3.430.2.7 0.2.7.3.698 Ho spita .3.146187 084.8 l .8 2020-09-16 2020-09-17 Emergency [place] 1.2.840.1 1041 10651 [id number] Methodi 13:34:00 13:30:00 Woodyhu Clarice Lee 94207.1.[address] Lj Thakkar Britni 3.430.2.7 Hospita .3.551619 l .8 2020-09-10 2020-09-11 Emergency Jose Elias Torres. 1.2.840.1 1041 55126 [id number] Methodi 22:04:00 18:12:00 Lydia Oden 88697.1.[address] Maribel Dickey 3.430.2.7 H ospita Lj Thakkar Britni .3.031969 l .8 2020-09-10 2020-09-10 Travel 1.2.840.1 1.2.908.428 3252 067186 Methodi 00:00:00 00:00:[address] 3.430.2.7 0.2.7.3.698 Ho spita .3.741323 084.8 l .8 2020-07-15 2020-07-16 Emergency Pedro, 1.2.840.1 [id number] 2100 077552 Methodi 20:20:00 01:48:[address] Mendel 3.430.2.7 Hospit a .3.715752 l .8 2020-07-15 2020-07-15 Travel 1.2.840.1 1.2.174.855 7156 744476 Methodi 00:00:00 00:00:[address] 3.430.2.7 0.2.7.3.698 Ho spita .3.969658 084.8 l .8 2020-05-06 2020-05-08 Emergency Kevin Sood 1.2.840.1 1041 86214 [id number] Methodi 00:09:00 12:49:00 Blaze Squires 43459.1.[address] 3.430.2.7 Hospit a .3.285801 l .8 2020-05-06 2020-05-06 Travel 1.2.840.1 1.2.971.771 4827 388522 Methodi 00:00:00 00:00:[address] 3.430.2.7 0.2.7.3.698 Ho spita .3.568866 084.8 l .8 2020-02-20 2020-02-20 Emergency ER [facility] Emergency [id number] [facility] 19:04:00 19:04:00 2020-02-20 2020-02-20 Outpatient FBCOVID FBCOVID [id number] FBCOVID 00:00:00 00:00:00 304458 5063-06-24 2020-02-04 Outpatient C RHODA [facility] [address] [facility] 23:59:00 CWANZA [facility] 2020-02-04 2020-02-04 Emergency ER [facility] Emergency [id number] [facility] 05:29:00 05:29:00 2019-12-03 2019-12-03 Emergency E BRITNI RODRIGUEZ [facility] 7504 Memjimbo 16:11:00 19:03:00 l Antonio Memoria l [facility] 2019-12-03 2019-12-03 Outpatient KARISHMA, [facility] 0122 Memoria 17:00:00 18:55:00 THOMAS glasgow Darby Memoria l [facility] 2019-10-12 2019-10-12 Emergency [facility] [id number] [facility] 17:06:00 17:06:00 [id number] 2019-08-25 2019-08-25 Emergency E [facility] 0013 [facility] 17:44:00 17:44:00 2016-02-13 2016-02-[address] [facility] [id number] 475 Memoria 05:43:00 11:41:00 Emergency r Antonio 00 l [facility] 2016-02-13 2016-02-[address] [facility] [id number] 475 Memoria 05:43:00 11:41:00 Emergency r Darby 00 l [facility] 2016-02-13 2016-02-13 Outpatient Sravanthi, [facility] [id number] 1689 00:43:00 06:41:00 Malorie 00 Suzanne 2014-09-04 2014-09-04 EC [facility]avo [facility] [id number] 675 Memoria 07:09:00 09:15:00 Emergency r Darby 19 l [facility] 2014-09-04 2014-09-[address] [facility] [id number] 675 Memoria 07:09:00 09:15:00 Emergency r Antonio 19 l [facility] 2014-09-04 2014-09-04 Outpatient Aldo 2.16.840. 2.16.840.1. [id number] 01:09:00 03:15:00 Tattaqueriao 1.830105. 728021.3.61 19 3.615.0.1 5.0.399 68 2046-01-12 2014-08-24 EC nullFlavo [facility] [id number] 675 Memoria 17:17:00 22:15:00 Emergency r Darby 18 l [facility] 2014-08-24 2014-08-[address] [facility] [id number] 675 Memoria 17:17:00 22:15:00 Emergency r Darby 18 l [facility] 2014-08-24 2014-08-24 Outpatient Aldo 2.16.840. 2.16.840.1. [id number] 11:17:00 16:15:00 Nay 1.872934. 530927.3.61 18 3.615.0.1 5.0.101 01 Results Test Description [...] 34.2 g/dL 31.6-35.1 RDW-SD (test code = 45373-6) 40.3 fL 39.0-49.9 RDW-CV (test code = 788-0) 12.5 % 12.0-15.5 PLT (test code = 777-3) 437 See_Comment H [Au tomated message] The system which ge nerated this result transmit gaye reference range: 166 - 35 8 10*3/?L. The reference range was not used to interpret th is result as normal/abnormal . MPV (test code = 78489-9) 9.9 fL 9.5-12.9 NRBC/100 WBC (test code = 0.0 See_Comment [ Automated message] The 2609899840) system which [employer] nerated this result transmit gaye reference range: 0.0 - 10 .0 /100 WBCs. The reference r ozzy was not used to interpr et this result as normal/abnor mal. NRBC x10^3 (test code = See_Comment [Au tomated message] The 0947015279) system which [employer] nerated this result transmit gaye reference range: 10*3/?L. The reference range was not u sed to interpret this result as normal/abnormal . SEG % (test code = 84109-1) 41 % 33-76 LYMPH % (test code = 48 % 14-54 92067-1) MONO % (test code = 20633-7) 8 % 0-4 H EOS % (test code = 89630-5) 3 % 0-3 ANC (test code = 753-4) 4.28 10*3/uL 1.88-7.09 Lab Interpretation (test Abnormal code = 16335-4) [facility]. METABOLIC PANEL (02011)2022-12-12 05:29:31 Test Item Value Reference Range Interpretation Comments NA (test code = 138 mmol/L 135-145 6845841262) K (test code = 4.3 mmol/L 3.5-5.0 4252024025) CL (test code = 106 mmol/L 98-108 3882997519) CO2 TOTAL (test code = 21 mmol/L 23-31 L 9266446496) AGAP (test code = 11 2-16 6355368035) BUN (test code = 8 mg/dL 7-23 5875166404) GLUCOSE (test code = 113 mg/dL 70-110 H 0804551354) CREATININE (test code = 0.59 mg/dL 0.50-1.04 6891638224) TOTAL BILI (test code = 1.0 mg/dL 0.1-1.3 5719607278) CALCIUM (test code = 9.3 mg/dL 8.6-10.6 5691195042) T PROTEIN (test code = 7.3 g/dL 6.3-8.2 0190706095) ALBUMIN (test code = 4.3 g/dL 3.5-5.0 7585421249) ALK PHOS (test code = 59 U/L 34-122 0628643747) ALTv (test code = 25 U/L 5-35 1742-6) AST(SGOT) (test code = 24 U/L 13-40 8133694693) eGFR (test code = 108.3 mL/min/1.73m2 1039578966) CIRO (test code = CIRO) Association of [...] tests). Lab Interpretation Abnormal (test code = 74906-4) [facility]31 Test Item Value Reference Range Interpretation Comments LIPASE (test code = 6144598589) 133 U/L 0-220 Lab Interpretation (test code = Normal 57890-0) [facility] [id number] 23:18:00 Test Item Value Reference Range Interpretation Comments POCT PREG (test code = 1605) Negative On board controls acceptable with Present C Line (test code = 3574) POCT PREG LOT # (test code = 5115) [id number] POCT PREG TEST DATE (test 05-18-2024 code = 3576) Lab Interpretation (test code = Normal 70063-8) [facility] METABOLIC PANEL (NA, K, CL, CO2, GLUCOSE, BUN, CREATININE, CA)2022-11-27 20:08:10 Test Item Value Reference Range Interpretation Comments NA (test code = 138 mmol/L 135-145 6871638465) K (test code = 4.7 mmol/L 3.5-5.0 5000613969) CL (test code = 104 mmol/L 98-108 8745104430) CO2 TOTAL (test code = 21 mmol/L 23-31 L 0086163340) AGAP (test code = 13 2-16 9002507915) BUN (test code = 6 mg/dL 7-23 L 7590607239) GLUCOSE (test code = 98 mg/dL 70-110 4784116356) CREATININE (test code = 0.55 mg/dL 0.50-1.04 9313401611) CALCIUM (test code = 9.0 mg/dL 8.6-10.6 1167010377) eGFR (test code = 117.5 mL/min/1.73m2 8048456011) CIRO (test code = CIRO) Association of [...] tests). Lab Interpretation Abnormal (test code = 95655-2) [facility] WITH [id number] 19:53:46 Test Item Value Reference Range Interpretation Comments WBC (test code = 9.87 See_Comment [Automated 6190-2) message] The sy stem which generated this result transmitted reference range : 4.30 - 11.10 10*3/?L. The reference range was not used to interpret this result as normal/abnormal . RBC (test code = 4.86 See_Comment [Automated 589-8) message] The sy stem which generated this [...] RDW-SD (test code = 41.0 fL 39.0-49.9 90724-8) RDW-CV (test code = 12.8 % 12.0-15.5 788-0) PLT (test code = 399 See_Comment H [Automated 777-3) message] The sy stem which generated this result transmitted reference range : 166 - 358 10*3/ ?L. The reference r ozzy was not used to interpret this result as normal/abnormal . MPV (test code = 9.6 fL 9.5-12.9 63075-7) NRBC/100 WBC (test 0.0 See_Comment [Automat ed code = 8920395450) message] The system which generated this result transmitted reference range : 0.0 - 10.0 /100 WBCs. The refer ence range was not u sed to interpret th is result as normal/abnormal . NRBC x10^3 (test code See_Comment [Auto mated = 6320857165) message] The s ystem which generated this result transmitted reference range : 10*3/?L. The reference range was not used to interpret this result as normal/abnormal . GRAN MAT (NEUT) % 57.8 % (test code = 770-8) IMM GRAN % (test code 0.70 % = 9106462812) LYMPH % (test code = 32.4 % 736-9) MONO % (test code = 5.2 % 5905-5) EOS % (test code = 3.0 % 713-8) BASO % (test code = 0.9 % 706-2) GRAN MAT x10^3(ANC) 5.70 10*3/uL 1.88-7.09 (test code = 8816565166) IMM GRAN x10^3 (test 0.07 10*3/uL 0.00-0.06 H code = 2025746840) LYMPH x10^3 (test code 3.20 10*3/uL 1.32-3.29 = 731-0) MONO x10^3 (test code 0.51 10*3/uL 0.33-0.92 = 742-7) EOS x10^3 (test code = 0.30 10*3/uL 0.03-0.39 711-2) BASO x10^3 (test code 0.09 10*3/uL 0.01-0.07 H = 704-7) Lab Interpretation Abnormal (test code = 50640-3) [facility] [id number] 04:20:10 Test Item Value Reference Range Interpretation Comments PREG SERUM (test code Negative = 9569901695) CIRO (test code = CIRO) Less than 10 IU/L. ?If low titer or ectopic is suspected, resubmit specimen in 48-72 hours. [facility] [id number] 03:49:08 Test Item Value Reference Interpretation Comments Range TROPONIN I (test 0.001 ng/mL See_Comment [Automated code = 9433451229) message] The system which generated this result [...] biotin. Lab Interpretation Normal (test code = 95668-5) [facility]. METABOLIC PANEL (88860)2022-08-15 03:37:26 Test Item Value Reference Range Interpretation Comments NA (test code = 138 mmol/L 135-145 0493118181) K (test code = 3.6 mmol/L 3.5-5.0 6800604546) CL (test code = 105 mmol/L 98-108 8652131590) CO2 TOTAL (test code 24 mmol/L 23-31 = 5060953812) AGAP (test code = 2-16 1743439303) BUN (test code = 9 mg/dL 7-23 5965062401) GLUCOSE (test code = 105 mg/dL 70-110 5379288687) CREATININE (test code 0.75 mg/dL 0.50-1.04 = 3195379028) TOTAL BILI (test code 0.6 mg/dL 0.1-1.1 = 8732276427) CALCIUM (test code = 8.7 mg/dL 8.6-10.6 9753569805) T PROTEIN (test code 6.7 g/dL 6.3-8.2 = 0685162905) ALBUMIN (test code = 3.9 g/dL 3.5-5.0 5960815339) ALK PHOS (test code = 69 U/L 34-122 1775174525) ALTv (test code = 35 U/L 5-35 1742-6) AST(SGOT) (test code 27 U/L 13-40 = 6389125058) eGFR (test code = mL/min/1.73m2 1397584168) CIRO (test code = CIRO) Association of [...] or urine or abnormalities in imaging tests). [facility] WITH [id number] 03:25:05 Test Item Value Reference Range Interpretation Comments WBC (test code = See_Comment [Automated 6112-2) message] The sy stem which generated this result transmitted reference range : 4.30 - 11.10 10*3/?L. The reference range was not used to interpret this result as normal/abnormal . RBC (test code = See_Comment [Automated 359-8) message] The sy stem which generated this [...] RDW-SD (test code = 41.3 fL 39.0-49.9 04869-2) RDW-CV (test code = 12.5 % 12.0-15.5 788-0) PLT (test code = See_Comment H [Automated 777-3) message] The sy stem which generated this result transmitted reference range : 166 - 358 10*3/ ?L. The reference r ozzy was not used to interpret this result as normal/abnormal . MPV (test code = 9.4 fL 9.5-12.9 L 55357-0) NRBC/100 WBC (test See_Comment [Automat ed code = 4288732087) message] The system which generated this result transmitted reference range : 0.0 - 10.0 /100 WBCs. The refer ence range was not u sed to interpret th is result as normal/abnormal . NRBC x10^3 (test code See_Comment [Auto mated = 9427669005) message] The s ystem which generated this result transmitted reference range : 10*3/?L. The reference range was not used to interpret this result as normal/abnormal . GRAN MAT (NEUT) % 55.2 % (test code = 770-8) IMM GRAN % (test code 0.50 % = 5069147772) LYMPH % (test code = 30.7 % 736-9) MONO % (test code = 6.4 % 5905-5) EOS % (test code = 6.2 % 713-8) BASO % (test code = 1.0 % 706-2) GRAN MAT x10^3(ANC) 5.54 10*3/uL 1.88-7.09 (test code = 5653322803) IMM GRAN x10^3 (test 0.05 10*3/uL 0.00-0.06 code = 5589282633) LYMPH x10^3 (test code 3.08 10*3/uL 1.32-3.29 = 731-0) MONO x10^3 (test code 0.64 10*3/uL 0.33-0.92 = 742-7) EOS x10^3 (test code = 0.62 10*3/uL 0.03-0.39 H 711-2) BASO x10^3 (test code 0.10 10*3/uL 0.01-0.07 H = 704-7) Lab Interpretation Abnormal (test code = 18388-7) [facility] [id number] 14:27:33 Test Item Value Reference Interpretation Comments Range Levetiracetam (test <2.0 mcg/mL L Referen ce Range: code = 8871872) 12.0-46.0 T oxic level is not we ll established. Interpretation should include a clinical evalua tion. For additional information, pl ease refer tohttp://educat ion.[employer]/ faq/OFX213(This link is being provid ed forinformationa l/christianacareal purpos es only.) This jose t was developed and i ts analytical performance characteristics have been determined by [employer]. It has not been cleared or appr christiano by theFDA. This assay has been validated pursu ant to the CLIA regulations and is used for clinic al purposes. CIRO (test code = Performing Lab CIRO) *GAGANDE[employer] [facility], [address] [place] [address] Praminder Szymanski MD Lab Interpretation Abnormal (test code = 95704-0) [facility] [id number] 14:27:33 Test Item Value Reference Interpretation Comments Range Levetiracetam (test <2.0 mcg/mL L Referen ce Range: code = 5109076) 12.0-46.0 To xic level is not we ll established. Interpretation should include a clinical evalua tion. For additional information, pl ease refer [email or web address] ion.[employer] .[facility]/ faq/NGH438(This link is being provid ed forinformationa l/edu cational purpos es only.) This jose t was developed and i ts analytical performance characteristics have been determined by [employer]. It has not been cleared or appr christiano by theFDA. This assay has been validated pursu ant to the CLIA regulations and is used for clinic al purposes. CIRO (test code = Performing Lab CIRO) *[employer] [facility], [address] [place] [id number] Parminder Szymanski MD Lab Interpretation Abnormal (test code = 27787-3) [facility]CT, BRAIN, WITHOUT [id number] 23:05:00 Unlisted Reason for Exam - Click Yes and Enter Reason Below->No [facility] NUR : 1975 Sex: FFINAL REPORT [...] Date/Time: 05/05/2021 23:05:29 CT, SPINE, CERVICAL, WO [id number] 23:05:00Unlisted Reason for Exam - Click Yes and Enter Reason Below->No [facility] NUR : 1975 Sex: FFINAL REPORT [...] Aneudy Asencio MDReport Verified Date/Time: 05/05/2021 23:05:29 [facility] [id number] 21:22:45 Test Item Value Reference Range Interpretation Comments Troponin I (test code = <0.03 0.00-0.15 20966-3) CIRO (test code = CIRO) Troponin I [...] THELMA Lab Interpretation (test Normal code = 95223-2) [facility]-EastTroponin [id number] 21:22:45 Test Item Value Reference Range Interpretation Comments Troponin I (test code = <0.03 0.00-0.15 34805-3) CIRO (test code = CIRO) Troponin I [...] THELMA Lab Interpretation (test Normal code = 20262-8) [facility]EastTRBERTHAN [id number] 21:22:45 Test Item Value Reference Range Interpretation [...] acidosis, acute neurological disease, and persistent tachyarrhythmia.Mold Parter ID - JUSTINComprehensive metabolic [id number] 21:20:36 Test Item Value Reference Interpretation Comments Range Protein, Total (test 7.5 See_Comment Specime n code = 2885-2) slightly hemolyzed [Automated message] The system which generated this result transmitted reference range : 6.0 - 8.5 gm/dL . The reference range was not used to interpret this result as normal/abnormal . Albumin (test code = 4.1 g/dL 3.5-5.0 [place] [address]-0) slightly hemolyzed Alkaline Phosphatase 72 U/L 30-115 (test code = 6768-6) Total Bilirubin 1.0 mg/dL 0.1-1.2 Specimen (test code = 1974-2) slightl y hemolyzed Sodium (test code = 141 meq/L 618-331 8640-2) Potassium (test code 3.8 meq/L 3.6-5.5 Specime n = 2823-3) slightly hemolyzed Chloride (test code 104 meq/L 98-106 = 2075-0) CO2 (test code = 24 meq/L 20-29 2027-9) BUN (test code = 7 mg/dL 10-26 L 3094-0) Creatinine (test 0.81 mg/dL 0.50-1.20 Specimen code = 2160-0) slightly hemolyzed Glucose (test code = 92 mg/dL 70-110 2345-7) Calcium (test code = 9.4 mg/dL 8.5-10.5 53760-4) AST (test code = 21 U/L 5-40 Specimen 1920-8) slightly hemolyzed ALT (test code = 27 U/L 5-50 Specimen 1742-6) slightly hemolyzed EGFR (test code = 76 mL/min/1.73 [place] [address]-0) m NOT ACCURATE CREATININE CLEARANCE IN PREDICTING GLOMERULAR FILTRATION RATE . ESTIMATED GFR I S NOT APPLICABLE FOR DIALYSIS PATIENTS. CIRO (test code = Mold Parter ID - CIRO) JUSTINOperator ID - JUSTINOperator [...] THELMA Lab Interpretation Abnormal (test code = 93066-8) [facility] [id number] 21:20:36 Test Item Value Reference Interpretation Comments Range Protein, Total (test 7.5 See_Comment Specime n code = 2885-2) slightly hemolyzed [Automated message] The system which generated this result transmitted reference range : 6.0 - 8.5 gm/dL . The reference range was not used to interpret this result as normal/abnormal . Albumin (test code = 4.1 g/dL 3.5-5.[place] [address]-6) slightly hemolyzed Alkaline Phosphatase 72 U/L 30-115 (test code = 6768-6) Total Bilirubin 1.0 mg/dL 0.1-1.2 Specimen (test code = 1974-2) slightl y hemolyzed Sodium (test code = 141 meq/L 344-867 9330-2) Potassium (test code 3.8 meq/L 3.6-5.5 Specime n = 2823-3) slightly hemolyzed Chloride (test code 104 meq/L 98-106 = 5-0) CO2 (test code = 24 meq/L 20-29 2027-9) BUN (test code = 7 mg/dL 10-26 L 3094-0) Creatinine (test 0.81 mg/dL 0.50-1.20 Specimen code = 2160-0) slightly hemolyzed Glucose (test code = 92 mg/dL 70-110 2345-7) Calcium (test code = 9.4 mg/dL 8.5-10.5 39259-5) AST (test code = 21 U/L 5-40 Specimen 1920-8) slightly hemolyzed ALT (test code = 27 U/L 5-50 Specimen 1742-6) slightly hemolyzed EGFR (test code = 76 mL/min/1.73 [place] [address]-5) m NOT ACCURATE CREATININE CLEARANCE IN PREDICTING GLOMERULAR FILTRATION RATE . ESTIMATED GFR I S NOT APPLICABLE FOR DIALYSIS PATIENTS. CIRO (test code = Mold Parter ID - CIRO) JUSTINOperator ID - JUSTINOperator [...] THELMA Lab Interpretation Abnormal (test code = 16813-0) [facility] [id number] 21:20:36 Test Item Value Reference Range Interpretation [...] NOT APPLICABLE FOR DIALYSIS PATIEN TS. Mold Parter ID - JUSTINOperator ID - JUSTINOperator ID - JUSTINOperator ID - JUSTINOperator ID - JUSTINOperator ID - JUSTINOperator ID - JUSTINOperator ID - JUSTINOperator ID - JUSTINOperator ID - JUSTINOperator ID - JUSTINOperator ID - JUSTINOperator ID - JUSTINOperator ID - JUSTINOperator ID - JUSTINOperator ID - JUSTINOperator ID - JUSTINOperator ID - JUSTINOperator ID - JUSTINCBC with platelet count + automated [id number] 20:51:36 Test Item Value Reference Range Interpretation Comments WBC (test code = 6690-2) 12.0 See_Comment H [A utomated message] The system [employer] generated this result transmitted ref erence range: 4.0 - 10 .0 K/L. The refe rence range was not u sed to interpret this result as normal/abnor mal. RBC (test code = 789-8) 4.84 See_Comment [Au tomated message] The system [employer] generated this result transmitted ref erence range: 4.00 - 5 .00 M/L. The refe rence range was not u sed to interpret this result as normal/abnor mal. MCHC (test code = 786-4) 34.8 See_Comment [A utomated message] The system [employer] generated this result transmitted ref erence range: [...] H [Aut omated message] 777-3) The system [employer] generated this result transmitted ref erence range: 150 - 43 0 K/CU MM. The referen ce range was not u sed to interpret this result as normal/abnor mal. MPV (test code = 9.7 fL 6.0-11.5 91669-7) nRBC (test code = 413) 0 See_Comment [Aut omated message] The system [employer] generated this result transmitted ref erence range: [...] See_Comment [Aut omated message] 670) The system [employer] generated this result transmitted ref erence range: 1.80 - 8 .00 K/L. The refe rence range was not u sed to interpret this result as normal/abnor mal. # Lymphs (test code = 3.61 See_Comment [Auto mated message] 414) The system [employer] generated this result transmitted ref erence range: 1.48 - 4 .50 K/L. The refe rence range was not u sed to interpret this result as normal/abnor mal. # Monos (test code = 0.86 See_Comment [Autom ated message] 415) The system [employer] generated this result transmitted ref erence range: 0.00 - 1 .30 K/L. The refe rence range was not u sed to interpret this result as normal/abnor mal. # Eos (test code = 416) 0.41 See_Comment [Au tomated message] The system [employer] generated this result transmitted ref erence range: 0.00 - 0 .50 K/L. The refe rence range was not u sed to interpret this result as normal/abnor mal. # Baso (test code = 417) 0.10 See_Comment [A utomated message] The system [employer] generated this result transmitted ref erence range: 0.00 - 0 .20 K/L. The refe rence range was not u sed to interpret this result as normal/abnor mal. Immature 0 % 0-0 Granulocytes-Relative (test code = 2801) Lab Interpretation (test Abnormal code = 94471-0) [facility] with platelet count + automated [id number] 20:51:36 Test Item Value Reference Range Interpretation Comments WBC (test code = 6690-2) 12.0 See_Comment H [A utomated message] The system [employer] generated this result transmitted ref erence range: 4.0 - 10 .0 K/L. The refe rence range was not u sed to interpret this result as normal/abnor mal. RBC (test code = 789-8) 4.84 See_Comment [Au tomated message] The system [employer] generated this result transmitted ref erence range: 4.00 - 5 .00 M/L. The refe rence range was not u sed to interpret this result as normal/abnor mal. MCHC (test code = 786-4) 34.8 See_Comment [A utomated message] The system [employer] generated this result transmitted ref erence range: [...] H [Aut omated message] 777-3) The system [employer] generated this result transmitted ref erence range: 150 - 43 0 K/CU MM. The referen ce range was not u sed to interpret this result as normal/abnor mal. MPV (test code = 9.7 fL 6.0-11.5 30027-6) nRBC (test code = 413) 0 See_Comment [Aut omated message] The system [employer] generated this result transmitted ref erence range: [...] See_Comment [Aut omated message] 670) The system [employer] generated this result transmitted ref erence range: 1.80 - 8 .00 K/L. The refe rence range was not u sed to interpret this result as normal/abnor mal. # Lymphs (test code = 3.61 See_Comment [Auto mated message] 414) The system [employer] generated this result transmitted ref erence range: 1.48 - 4 .50 K/L. The refe rence range was not u sed to interpret this result as normal/abnor mal. # Monos (test code = 0.86 See_Comment [Autom ated message] 415) The system [employer] generated this result transmitted ref erence range: 0.00 - 1 .30 K/L. The refe rence range was not u sed to interpret this result as normal/abnor mal. # Eos (test code = 416) 0.41 See_Comment [Au tomated message] The system [employer] generated this result transmitted ref erence range: 0.00 - 0 .50 K/L. The refe rence range was not u sed to interpret this result as normal/abnor mal. # Baso (test code = 417) 0.10 See_Comment [A utomated message] The system [employer] generated this result transmitted ref erence range: 0.00 - 0 .20 K/L. The refe rence range was not u sed to interpret this result as normal/abnor mal. Immature 0 % 0-0 Granulocytes-Relative (test code = 2801) Lab Interpretation (test Abnormal code = 79300-9) [facility] W/PLT COUNT & AUTO [id number] 20:51:36 Test Item Value Reference Range Interpretation [...] (BEAKER) (test code = 2801) Continuous EEG ijqkhbyroj8972-96-56 01:51:44CONTINUOUS VIDEO-EEG MONITORING REPORT - END OF STUDY Patient Name: Shanna GuerreroRN#: [id number] Date of : 1975 Initial Study Start [...] seizures captured. Onelia Hair MD ICD-10 Code: D770Tmyfjplata EEG zuybcspoyo2825-62-42 12:59:42 CONTINUOUS VIDEO-EEG MONITORING REPORT [id number] Date of : 1975 Initial Study Start [...] seizures captured. Onelia Hair MD ICD-10 Code: U182MYU 12 [id number] 05:31:10 Test Item Value Reference Range Interpretation Comments Ventricular rate (test code = 253) Atrial rate (test code = 255) MD interval (test code = 266) QRSD interval [...] 04:27,-Vent. rate has increased BY 62 BPM- [facility] 12 duah2604-17-20 05:31:10 Test Item Value Reference Range Interpretation Comments Ventricular rate (test code = 253) Atrial rate (test code = 255) MD interval (test code = 266) QRSD interval [...] 04:27,-Vent. rate has increased BY 62 BPM- [facility] 12 [id number] 05:31:10 Test Item Value Reference Range Interpretation Comments Ventricular rate (test code = 253) Atrial rate (test code = 255) MD interval (test code = 266) QRSD interval [...] has increased BY 62 BPM- [facility] (routine) - Baseline [id number] 01:47:11VIDEO-EEG RECORDING AWAKE & ASLEEP - Baseline [...] Hair MD ICD-10 Code: R569CT Head Wo Ubssawmg1941-64-33 02:53:14EXAMINATION: CT HEAD WO CONTRAST CLINICAL HISTORY: [...] No CT evidence of acute intracranial abnormality. [id number] Interface, Radiology Results - 12/03/2020 9:56 PM [...] IMPRESSION:1. No CT evidence of acute intracranial abnormality.[id number] [facility] RNA [Presence] in Respiratory specimen by SOREN with probe vchqfzuet6649-12-76 02:03:42 Test Item Value Reference Range Interpretation Comments SARS-CoV-2 (COVID-19) RNA Not detected Not-Detected [Presence] in Respiratory specimen by SOREN with probe detection (test code = 76182-1) Whether patient is employed in a healthcare setting (test code = 03099-0) Whether the patient has symptoms related to condition of interest (test code = 20398-1) Patient was hospitalized because of this condition (test code = 14703-5) Whether the patient was admitted to intensive care unit (ICU) for condition of interest (test code = 61362-0) Whether patient resides in a congregate care setting (test code = 86334-5) TANNA PISANOXR Chest 1 Vw Axgxhisv8133-70-69 23:58:22EXAMINATION: XR CHEST 1 VW PORTABLE CLINICAL [...] no consolidation or effusion.3.The bones are intact.1D2RAD_P F20Ceuzjsmte [facility] [id number] 21:55:13Bladimir Brumfield MD 12/04/2020 3:12 PMCritical CarePerformed by: Bladimir Brumfield MDAuthorized by: Bladimir Cisse MD Critical care provider statement: Critical care time (minutes): 35 Critical caretime was exclusive of: Separately billable procedures and treating other patients Critical care was necessary to treat or prevent imminent or life-threatening deterioration of the following conditions:CAREER DEVELOPMENT DIRECTOR failure or compromise Critical care was time [...] care for this patient from another provider.: noEG ED Preliminary Interpretation - Not an [id number] 21:55:13 Bladimir Brumfield MD 12/04/2020 3:12 [facility] Preliminary Interpretation - Not an OrderPerformed by: Bladimir Brumfield MDAuthorized by: Bladimir Brumfield MD ECG reviewed by ED Physician in the absence of a track sweeper: yes Rate: ECG rate: 119Rhythm: Rhythm: sinus tachycardia Ectopy: Ectopy: none QRS: QRS axis: Normal QRS intervals: NormalConduction: Conduction: normal ST segments: ST segments: NormalT waves: T waves: normalUrine [id number] 01:10:19 Test Item Value Reference Range Interpretation Comments Urine culture (test SEE COMMENT Bacteriu mario screen code = 1733366) negative. [facility] pqpwqlf3346-60-05 01:10:19 Test Item Value Reference Range Interpretation Comments Urine culture (test SEE COMMENT Bacteriu mario screen code = 3659220) negative. [facility] tbpwyst3234-06-52 01:10:19 Test Item Value Reference Range Interpretation Comments Urine culture (test SEE COMMENT Bacteriu mario screen code = 4975346) negative. [facility][U] XRAY HAND MIN 3 VWS RIGHT [id number] 15:17:00Images acquired, not reported on this accession number.ME PhysiciansXR Hand 3+ Vw Right 2020-11-03 04:37:16EXAMINATION: XR HAND 3 VW RIGHT INDICATION: dog bite COMPARISON: None IMPRESSION: 3 views of the right hand were obtained.No visible acute fracture or dislocation.No visible radiodense foreign material. [facility], Radiology Results Incoming - 11/02/2020 11:40 PM CDT EXAMINATION: XR HAND 3 VW RIGHTINDICATION: dog biteCOMPARISON: NoneIMPRESSION:3 views of the right hand were obtained.No visible acute fracture or dislocation.No visible radiodense foreign material.[facility] ([facility]ine) 2020-09-17 16:59:35Date of Study Completion: September [...] movements noted on this tracing by the log data technician did not have an epileptic correlate. [...] in Respiratory specimen by SOREN with probe miwssiqrx0410-10-91 00:31:49 Test Item Value Reference Range Interpretation Comments SARS-CoV-2 (COVID-19) RNA Not detected Not-Detected [Presence] in Respiratory specimen by SOREN with probe detection (test code = 94600-8) [facility] (routine)2020-09-11 20:16:18Date of [...] in Respiratory specimen by SOREN with probe fvnurvjxr7876-71-36 07:15:55 Test Item Value Reference Range Interpretation Comments SARS-CoV-2 (COVID-19) RNA Not detected Not-Detected [Presence] in Respiratory specimen by SOREN with probe detection (test code = 39482-2) [facility] Abdomen Pelvis Wo Pdznrttq5201-56-18 05:45:01EXAMINATION: CT ABDOMEN PELVIS WO CONTRAST HISTORY: [...] high grade enterocolitis. No bowel obstruction.1D2RA D_PS02[facility] SvunibcrYMSO-QgI-3 (COVID-19) RNA [Presence] in Respiratory specimen by SOREN with probe amjxtfzxq2450-67-36 05:23:42 Test Item Value Reference Range Interpretation Comments SARS-CoV-2 (COVID-19) RNA Not detected Not-Detected [Presence] in Respiratory specimen by SOREN with probe detection (test code = 12125-6) [facility]Transthoracic Echocardiogram Complete, (w Contrast, Strain and 3D if needed)2020-05-11 04:52:19 Test Item Value Reference Range Interpretation Comments Velocity Ratio (V1/V2) 0.85 m/s (test code = 4689) IVS,d (test code = 1.00 cm 9339373543) EF (test code = 52.31 % 0306215482) Ascending aorta (test 2.67 cm code = 6174679552) LVPWD,d (test code = 1.00 cm 1555517133) AoV Mean PG (test code mmHg = 1563465785) AV LVOT peak gradient mmHg (test code = 0011289422) MV mean gradient (test mmHg code = 4661804387) MV valve area p 1/2 3.31 cm2 method (test code = 5368336793) PV Pk Grad (test code = mmHg 2272871456) E/A ratio (test code = 8014522175) E wave decelartion time msec (test code = 9865557132) LVOT Diam,S (test code 1.98 cm = 7554827258) LVOT area (test code = 3.08 cm2 2172928472) LVOT Vmax (test code = 0.96 m/s 7366742268) LVOT VTI (test code = 0.21 m 9302592393) RVOT Vmax (test code = 0.58 m/s 4801107701) AoV Peak PG (test code mmHg = 5308868761) MV Peak E Giuliano (test 0.94 m/s code = 1588413154) MV stenosis pressure 66.39 ms 1/2 time (test code = 1574680589) MV Peak A Giuliano (test 0.74 m/s code = 2013910611) Ao Root Diameter (test 2.99 cm code = 9044406611) AoV Area, Vmax (test 2.60 cm2 code = 2359925130) AoV Area, VTI (test 2.95 cm2 code = 2321995060) AoV Vmax (test code = 1.13 m/s 2529472465) IVS/LVPW,2D (test code = 9344933282) Left Atrium Dimension 3.10 cm Anterior (test code = 9931523696) LV,d (test code = 4.15 cm 3205632700) LV,s (test code = 3.05 cm 9745214172) PV VMAX (test code = 0.78 m/s 3596876198) TR Vpeak (test code = 1.85 mm/s 7582087412) MV E A ratio (test code = 4968544263) TR pk grad (test code = mmHg 5720530895) MR peak grad (test code mmHg = 8067192520) Ao Root Diameter (test 2.99 cm code = 8610477175) LV SYS VOL (test code = 36.41 ml 9193832625) LV RIOS VOL (test code 76.34 ml = 8497037545) LV SV Teich 2D (test 39.93 ml code = 8132327180) LV Vol s Teich PSAX 36.41 ml (test code = 4729861568) MV Vmax (test code = 0.89 m 7206388398) MV VTI Tips (test code 0.22 m = 8670624901) RVOT pk grad (test code mmHg = 9247075860) AoV Vmn (test code = 8104451766) LV FS Cube 2D (test code = 4635177027) LV FS Teich 2D (test code = 1096356698) AoV VTI (test code = 0.22 m 9034614066) LA Area d A4C (test 12.41 cm2 code = 9179481618) LV EF,2D (test code = 60.32 % 6965832212) MR Vmax (test code = 4.15 m/s 3747443732) MV AE ratio (test code = 1022874019) LVOT Vmn (test code = 0767898784) Aov area Vmn (test code 2.47 cm2 = 4225418702) LA Vol d MOD A4C (test 27.63 ml code = 5921589602) LVOT mean grad (test mmHg code = 3494512090) MAX Pred HR (test code = 5920831071) 85 of MPHR (test code = 1650382043) Calc MPHR (test code = bpm 6886337136) LV SV Cube 2D (test 43.08 ml code = 3672598771) LV vol d cube 2D (test 71.42 ml code = 6771914949) LV vol s cube 2D (test 28.34 ml code = 8139121700) MV Decel slope (test 4.12 m/s2 code = 0196524716) Pred Exer Dur R1 (test code = 3774100531) Pred METS R1 (test code = 0936187545) CIRO (test code = CIRO) Left Ventricle: [...] regurgitation. No evidence of aortic valve stenosis. [facility] duplex venous upper xjqnlwavt5476-35-54 06:14:50 EXAMINATION: US DUPLEX VENOUS UPPER EXTREMITY [...] visualized veins of the right upper extremity. [facility]- [id number] Interface, Radiology Results 05/08/2020 1:17 AM CDT [...] the visualized veins of the right upper extremity.[facility]-[id number] HospitalEEG (routine)2020-05-07 22:01:23Date of Service: May 07, [...] a diagnosis of epilepsy.MRI Brain W Wo Kjcvbivo7446-63-90 03:27:20EXAMINATION: MRI BRAIN W WO CONTRAST CLINICAL [...] or suspicious pericallosal lesions with a perivenular morphology.1M2RAD_PS01[facility] (COVID-19) RNA [Presence] in Respiratory specimen by SOREN with probe yztezzqkq3677-21-23 12:31:16 Test Item Value Reference Range Interpretation Comments SARS-CoV-2 (COVID-19) RNA Not detected Not-Detected [Presence] in Respiratory specimen by SOREN with probe detection (test code = 65492-8) [facility] 2020-02-22 21:37:00 Test Item Value Reference Range Interpretation Comments SARS-COV2/RT-PCR (test code = Positive Not Detected, Negative A A 1555253) SARS-COV-2 PERFORMING LAB CPL (test code = 3021702) CT, CHEST, WITHOUT [id number] 00:54:00Reason for exam:->cough, ?covidIs the patient ?->NoWhat [...] MDReport Verified Date/Time: 02/21/2020 00:54:38 PREGNANCY SCREEN, [id number] 00:28:00 Test Item Value Reference Range Interpretation Comments TEST URINE (BEAKER) (test Negative code = 583) CBC W/PLT COUNT & AUTO [id number] 22:46:00 Test Item Value Reference Range Interpretation [...] (BEAKER) (test code = 2801) LACTIC ACID, [id number] 22:30:00 Test Item Value Reference Range Interpretation Comments LACTATE BLOOD VENOUS 1.38 mmol/L 0.50-2.00 Specime n slightly (2) (BEAKER) (test hemolyzed code = 5822) Mold Parter ID - JUSTINBASIC METABOLIC [id number] 22:10:00 Test Item Value Reference Range Interpretation [...] NOT APPLICABLE FOR DIALYSIS PATIEN TS. Mold Parter ID - djtu19LGUOREDM J5795-47-91 22:09:00 Test Item Value Reference Range Interpretation [...] acidosis, acute neurological disease, and persistent tachyarrhythmia.Mold Parter ID - [id number], CHEST, 1 VIEW, NON NXDD2220-29-05 20:58:00Reason for exam:->coughIs the patient ?- >NoShould [...] Asencio MDReport Verified Date/Time: 02/20/2020 20:58:56 SARS-COV2/RT-PCR ([facility])2020-02-06 03:25:00 Test Item Value Reference Range Interpretation Comments SARS-COV2/RT-PCR (test code = Positive Not Detected, Negative A A 2295967) SARS-COV-2 PERFORMING LAB CPL (test code = 2590831) URINALYSIS W/ [id number] 08:24:00 Test Item Value Reference Range Interpretation [...] 1663) SOURCE(BEAKER) (test code = 2795) SCREEN, [id number] 08:00:00 Test Item Value Reference Range Interpretation Comments TEST URINE (BEAKER) (test Negative code = 583) RAD, ABDOMEN/KUB 1 VIEW [id number] 07:21:00Reason for exam:->FEVERReason for exam:->DIARRHEAReason for exam:->EMESISFINAL REPORT RAD, ABDOMEN/KUB 1 VIEW AP CLINICAL INDICATION: FEVERDIARRHEAEMESIS COMPARISON: None TECHNIQUE: Single, frontal radiograph of the abdomen. FINDINGS: The bowel gas pattern is nonspecific, but nonobstructive. IUD is present. The regional skeleton is intact. IMPRESSION: Nonspecific, nonobstructive bowel gas pattern. Signed: Ling Jin Verified Date/Time: 02/04/2020 07:21:42 Reading Location: [facility] Radiology Reading Room COMPREHENSIVE METABOLIC [id number] 07:14:00 Test Item Value Reference Range Interpretation [...] NOT APPLICABLE FOR DIALYSIS PATIEN TS. Mold Parter ID - GHOEFMDCBACSSHG2626-36-07 06:59:00 Test Item Value Reference Range Interpretation Comments LIPASE (BEAKER) (test code = 749) 9 U/L 6-51 Mold Parter ID - AGONZALEZCBC W/PLT COUNT & AUTO [id number] 06:41:00 Test Item Value Reference Range Interpretation [...] (test code = 2801) RAPID INFLUENZA A&B [id number] 19:09:00 Test Item Value Reference Range Interpretation Comments RAPID INFLUENZA A AG (BEAKER) Negative Negative, Inconclusive (test code = 1622) RAPID INFLUENZA B AG (BEAKER) Negative Negative, Inconclusive (test code = 1623) TROPONIN [id number] 18:51:00 Test Item Value Reference Range Interpretation [...] acidosis, acute neurological disease, and persistent tachyarrhythmia.Mold Parter ID - JUSTINPREGNANCY SCREEN, [id number] 18:49:00 Test Item Value Reference Range Interpretation Comments TEST URINE (BEAKER) (test Negative code = 583) URINALYSIS W/ [id number] 18:49:00 Test Item Value Reference Range Interpretation [...] code = 1663) SOURCE(BEAKER) (test code = 7979) BASIC METABOLIC [id number] 18:44:00 Test Item Value Reference Range Interpretation [...] NOT APPLICABLE FOR DIALYSIS PATIEN TS. Mold Parter ID - GORDON CHEST, 1 VIEW, NON [id number] 18:41:00Reason for exam:->COUGHReason for exam:->SHORTNESS OF BREATHReason [...] IMPRESSION: No acute cardiopulmonary abnormality. Signed: Vandana Edwardskimberly Verified Date/Time: 10/12/2019 18:41:43 Electronically signed by: VANDANA EDWARDS MD on10/12/2019 06:41 PMCBC W/PLT COUNT & AUTO [id number] 18:29:00 Test Item Value Reference Range Interpretation [...] PERCENT (BEAKER) (test code = 2801) CT, [id number] 16:47:00Reason for exam:->FEVERReason for exam:->LEG PAINIs the [...] MDReport Verified Date/Time: 02/15/2019 16:47:32 Reading Location: [address] Transitional Reading Room URINALYSIS W/ [id number] 15:41:00 Test Item Value Reference Range Interpretation [...] 1663) SOURCE(BEAKER) (test code = 2795) SCREEN, [id number] 15:29:00 Test Item Value Reference Range Interpretation Comments TEST URINE (BEAKER) (test Negative code = 583) COMPREHENSIVE METABOLIC [id number] 15:26:00 Test Item Value Reference Range Interpretation [...] S NOT APPLICABLE FOR DIALYSIS PATIEN TS. [id number] 15:26:00 Test Item Value Reference Range Interpretation Comments LIPASE (BEAKER) (test code = 749) 20 U/L 6-51 [id number] 15:17:00 Test Item Value Reference Range Interpretation Comments AMYLASE (BEAKER) (test 42 U/L 30-110 Speci men slightly code = 349) hemolyzed CBC W/PLT COUNT & AUTO [id number] 15:03:00 Test Item Value Reference Range Interpretation [...] = 2801) RAD, KNEE, COMPLETE (4 VIEWS), [id number] 23:20:00Reason for exam:->MOTOR VEHICLE CRASHReason for exam:->HIP [...] MDReport Verified Date/Time: 11/19/2018 23:20:49 Reading Location: [facility] C013Y CT Body Reading Room RAD, KNEE, COMPLETE (4 VIEWS), [id number] 23:20:00Reason for exam:- >MOTOR VEHICLE CRASHReason for [...] Friedman Verified Date/Time: 11/19/2018 23:20:49 Reading Location: [address] Body Reading Room RAD, HIP, 2 VIEWS, [id number] 23:06:00Reason for exam:->MOTOR VEHICLE CRASHReason for exam:->HIP PAINReason for exam:->ARM INJURYReason for exam:->SHOULDER INJURYFINAL REPORT Right hip series, 2 views Clinical Indication: Right Hip Pain Impression: No evidence of acute fracture or traumatic malalignment. Note: If occult injury is suspected, consider CT. Signed: Brian Garibay Verified Date/Time: 11/19/2018 23:06:27 Reading Location: [address] Reading [address] CT, [id number] 22:44:00Reason for exam:->MOTOR VEHICLE CRASHReason for exam:->HIP PAINReason for exam:->ARM INJURYReason for exam:->SHOULDER INJURYIs the patient ?->Unknownupt pendingWhat is the patient's sedation requirement?->No SedationFINAL [...] right ovary, almost certainly benign, no imaging follow-up recommended. The urinary bladder is contracted. No mass, adenopathy or ascites is present. IMPRESSION: Unremarkable noncontrast enhanced CT of the abdomen and pelvis. Signed: Whit Alcantara Verified Date/Time: 11/19/2018 22:44:18 Reading Location: [address] Reading Room , SHOULDER, COMPLETE (MIN 2 VIEWS), [id number] 22:41:00Reason for exam:- >MOTOR VEHICLE CRASHReason for exam:->HIP PAINReason for exam:->ARM INJURYReason for exam:->SHOULDER INJURYFINAL REPORT Right shoulder series - 3 VIEWS Clinical Indication: Right shoulder pain following traumatic injury. Impression: No evidence of acute fracture or traumatic malalignment. Signed: Brian Garibay Verified Date/Time: 11/19/2018 22:41:16 Reading Location: [address] Reading Room URINALYSIS W/ [id number] 21:44:00 Test Item Value Reference Range Interpretation [...] 1663) SOURCE(BEAKER) (test code = 2795) SCREEN, [id number] 21:40:00 Test Item Value Reference Range Interpretation Comments TEST URINE (BEAKER) (test Negative code = 583) URINALYSIS W/ [id number] 21:41:00 Test Item Value Reference Range Interpretation [...] 1663) SOURCE(BEAKER) (test code = 2795) SCREEN, [id number] 21:37:00 Test Item Value Reference Range Interpretation Comments TEST URINE (BEAKER) (test Negative code = 583) RAPID INFLUENZA A&B [id number] 20:49:00 Test Item Value Reference Range Interpretation Comments RAPID INFLUENZA A AG (BEAKER) Negative Negative, Inconclusive (test code = 1622) RAPID INFLUENZA B AG (BEAKER) Negative Negative, Inconclusive (test code = 1623) CT, [id number] 08:31:00Reason for exam:->ABDOMINAL PAINReason for exam:->FEVERReason for [...] Barkerort Verified Date/Time: 07/31/2017 08:31:14 Reading Location: [facility] Diagnostic Imaging Reading Room - [place] [address] 1120 RAD, CHEST, 1 VIEW, NON [id number] 08:23:00Reason for exam:->ABDOMINAL PAINReason for exam:->FEVERReason for [...] MDRlambertort Verified Date/Time: 07/31/2017 08:23:48 Reading Location: [address] Radiology Reading Room [id number] 08:07:00 Test Item Value Reference Range Interpretation Comments LIPASE (BEAKER) (test code = 749) 34 U/L 6-51 URINALYSIS W/ REFLEX URINE [id number] 08:06:00 Test Item Value Reference Range Interpretation [...] SOURCE(BEAKER) (test code = 2795) COMPREHENSIVE METABOLIC [id number] 08:06:00 Test Item Value Reference Range Interpretation [...] S NOT APPLICABLE FOR DIALYSIS PATIEN TS. [id number] 07:58:00 Test Item Value Reference Range Interpretation Comments AMYLASE (BEAKER) (test code = 349) 52 U/L 30-110 SCREEN, [id number] 07:52:00 Test Item Value Reference Range Interpretation Comments TEST URINE (BEAKER) (test Negative code = 583) CBC W/PLT COUNT & AUTO [id number] 07:48:00 Test Item Value Reference Range Interpretation [...] 0.00-0.20 (test code = 417) BASIC METABOLIC [id number] 21:32:00 Test Item Value Reference Range Interpretation [...] DIALYSIS PATIEN TS. LACTIC ACID, VENOUS, WHOLE [id number] 21:19:00 Test Item Value Reference Range Interpretation Comments LACTATE BLOOD VENOUS 0.9 mmol/L 0.5-2.2 Specime n slightly (2) (BEAKER) (test hemolyzed code = 2872) Effective 12/15/2015: Units/Reference Range ChangeNew: 0.5-2.2 mmol/L Previous: 5- 18 mg/dLCBC W/PLT COUNT & AUTO [id number] 21:07:00 Test Item Value Reference Range Interpretation [...] L 0.00-0.20 (test code = 417) SCREEN, [id number] 18:50:00 Test Item Value Reference Range Interpretation Comments TEST URINE (BEAKER) (test Negative code = 583) URINE [id number] 09:20:00 Test Item Value Reference Range Interpretation [...] = 480) CBC W/PLT COUNT & AUTO [id number] 16:52:00 Test Item Value Reference Range Interpretation [...] 0.00-0.20 (test code = 417) COMPREHENSIVE METABOLIC [id number] 16:28:00 Test Item Value Reference Range Interpretation [...] S NOT APPLICABLE FOR DIALYSIS PATIEN TS. [id number] 16:22:00 Test Item Value Reference Range Interpretation Comments LIPASE (BEAKER) (test code = 749) 26 U/L 6-51 URINALYSIS W/ REFLEX URINE [id number] 15:52:00 Test Item Value Reference Range Interpretation [...] 1663) SOURCE(BEAKER) (test code = 2795) SCREEN, [id number] 15:49:00 Test Item Value Reference Range Interpretation Comments TEST URINE (BEAKER) (test Negative code = 583) URINE AND [id number] 08:40:00 Test Item Value Reference Range Interpretation Comments UA Leuk Est (test code Trace *ABN*(02/13/16 3:40 = UA Leuk Est) AM) [facility] [id number] 08:40:00 Test Item Value Reference Range Interpretation Comments UA Nitrite (test code Negative (02/13/16 3:40 = UA Nitrite) AM) [facility] AND [id number] 08:40:00 Test Item Value Reference Range Interpretation Comments UA Urobilinogen (test code = UA 0.2 0.1-1.0 Urobilinogen) [facility] AND [id number] 08:40:00 Test Item Value Reference Range Interpretation Comments UA Ketones (test code Negative *NA*(02/13/16 = UA Ketones) 3:40 AM) [facility] AND [id number] 08:40:00 Test Item Value Reference Range Interpretation Comments UA Glucose (test code Negative (02/13/16 3:40 = UA Glucose) AM) [facility] AND [id number] 08:40:00 Test Item Value Reference Range Interpretation Comments UA Blood (test code = Large *ABN*(02/13/16 UA Blood) 3:40 AM) [facility] AND [id number] 08:40:00 Test Item Value Reference Range Interpretation Comments UA Bili (test code = Negative *NA*(02/13/16 UA Bili) 3:40 AM) [facility] AND [id number] 08:40:00 Test Item Value Reference Range Interpretation Comments UA Protein (test code = UA Protein) 30 mg/dL [facility] AND [id number] 08:40:00 Test Item Value Reference Range Interpretation Comments UA Spec Grav (test code = UA Spec 1.015 1 Grav) [facility] AND [id number] 08:40:00 Test Item Value Reference Range Interpretation Comments UA pH (test code = UA pH) 7.0 1 5.0-8.0 [facility] AND [id number] 08:40:00 Test Item Value Reference Range Interpretation Comments UA Color (test code = Red *ABN*(02/13/16 3:40 UA Color) AM) [facility] AND [id number] 08:40:00 Test Item Value Reference Range Interpretation Comments UA Turbidity (test code Bloody *ABN*(02/13/16 = UA Turbidity) 3:40 AM) [facility] AND [id number] 08:40:00 Test Item Value Reference Range Interpretation Comments UA Bacteria (test code = UA Occasional /HPF Bacteria) [facility] AND [id number] 08:40:00 Test Item Value Reference Range Interpretation Comments UA RBC (test Packed See_Comment [Automated mes shirley] code = UA RBC) *ABN*(02/13/16 3:40 The syst em which AM) generated this result transmitted ref erence range: <=2. The reference range was not used to int erpret this result as normal/abnormal . [facility] AND [id number] 08:40:00 Test Item Value Reference Range Interpretation Comments UA WBC (test code = UA WBC) 3-5 /HPF [facility] AND [id number] 08:40:00 Test Item Value Reference Range Interpretation Comments UA Sq Epi (test code = UA Sq Epi) Rare /LPF [facility] AND [id number] 08:40:00 Test Item Value Reference Range Interpretation Comments UA Leuk Est (test code Trace *ABN*(02/13/16 3:40 = UA Leuk Est) AM) [facility] AND [id number] 08:40:00 Test Item Value Reference Range Interpretation Comments UA Nitrite (test code Negative (02/13/16 3:40 = UA Nitrite) AM) [facility] AND [id number] 08:40:00 Test Item Value Reference Range Interpretation Comments UA Urobilinogen (test code = UA 0.2 0.1-1.0 Urobilinogen) [facility] AND [id number] 08:40:00 Test Item Value Reference Range Interpretation Comments UA Ketones (test code Negative *NA*(02/13/16 = UA Ketones) 3:40 AM) [facility] AND [id number] 08:40:00 Test Item Value Reference Range Interpretation Comments UA Glucose (test code Negative (02/13/16 3:40 = UA Glucose) AM) [facility] AND [id number] 08:40:00 Test Item Value Reference Range Interpretation Comments UA Blood (test code = Large *ABN*(02/13/16 UA Blood) 3:40 AM) [facility] AND [id number] 08:40:00 Test Item Value Reference Range Interpretation Comments UA Bili (test code = Negative *NA*(02/13/16 UA Bili) 3:40 AM) [facility] AND [id number] 08:40:00 Test Item Value Reference Range Interpretation Comments UA Protein (test code = UA Protein) 30 mg/dL [facility] AND [id number] 08:40:00 Test Item Value Reference Range Interpretation Comments UA Spec Grav (test code = UA Spec 1.015 1 Grav) [facility] AND [id number] 08:40:00 Test Item Value Reference Range Interpretation Comments UA pH (test code = UA pH) 7.0 1 5.0-8.0 [facility] AND [id number] 08:40:00 Test Item Value Reference Range Interpretation Comments UA Color (test code = Red *ABN*(02/13/16 3:40 UA Color) AM) [facility] AND [id number] 08:40:00 Test Item Value Reference Range Interpretation Comments UA Turbidity (test code Bloody *ABN*(02/13/16 = UA Turbidity) 3:40 AM) [facility] AND [id number] 08:40:00 Test Item Value Reference Range Interpretation Comments UA Bacteria (test code = UA Occasional /HPF Bacteria) [facility] AND [id number] 08:40:00 Test Item Value Reference Range Interpretation Comments UA RBC (test Packed See_Comment [Automated mes shirley] code = UA RBC) *ABN*(02/13/16 3:40 The syst em which AM) generated this result transmitted ref erence range: <=2. The reference range was not used to int erpret this result as normal/abnormal . [facility] AND [id number] 08:40:00 Test Item Value Reference Range Interpretation Comments UA WBC (test code = UA WBC) 3-5 /HPF [facility] AND [id number] 08:40:00 Test Item Value Reference Range Interpretation Comments UA Sq Epi (test code = UA Sq Epi) Rare /LPF [facility] AND [id number] 08:40:00 Test Item Value Reference Range Interpretation Comments UA Leuk Est (test code Trace *ABN*(02/13/16 3:40 = UA Leuk Est) AM) [facility] AND [id number] 08:40:00 Test Item Value Reference Range Interpretation Comments UA Nitrite (test code Negative (02/13/16 3:40 = UA Nitrite) AM) [facility] AND [id number] 08:40:00 Test Item Value Reference Range Interpretation Comments UA Urobilinogen (test code = UA 0.2 0.1-1.0 Urobilinogen) [facility] AND [id number] 08:40:00 Test Item Value Reference Range Interpretation Comments UA Ketones (test code Negative *NA*(02/13/16 = UA Ketones) 3:40 AM) [facility] AND [id number] 08:40:00 Test Item Value Reference Range Interpretation Comments UA Glucose (test code Negative (02/13/16 3:40 = UA Glucose) AM) [facility] AND [id number] 08:40:00 Test Item Value Reference Range Interpretation Comments UA Blood (test code = Large *ABN*(02/13/16 UA Blood) 3:40 AM) [facility] AND [id number] 08:40:00 Test Item Value Reference Range Interpretation Comments UA Bili (test code = Negative *NA*(02/13/16 UA Bili) 3:40 AM) [facility] AND [id number] 08:40:00 Test Item Value Reference Range Interpretation Comments UA Protein (test code = UA Protein) 30 mg/dL [facility] AND [id number] 08:40:00 Test Item Value Reference Range Interpretation Comments UA Spec Grav (test code = UA Spec 1.015 1 Grav) [facility] AND [id number] 08:40:00 Test Item Value Reference Range Interpretation Comments UA pH (test code = UA pH) 7.0 1 5.0-8.0 [facility] AND [id number] 08:40:00 Test Item Value Reference Range Interpretation Comments UA Color (test code = Red *ABN*(02/13/16 3:40 UA Color) AM) [facility] AND [id number] 08:40:00 Test Item Value Reference Range Interpretation Comments UA Turbidity (test code Bloody *ABN*(02/13/16 = UA Turbidity) 3:40 AM) [facility] AND [id number] 08:40:00 Test Item Value Reference Range Interpretation Comments UA Bacteria (test code = UA Occasional /HPF Bacteria) [facility] AND [id number] 08:40:00 Test Item Value Reference Range Interpretation Comments UA RBC (test Packed See_Comment [Automated mes shirley] code = UA RBC) *ABN*(02/13/16 3:40 The syst em which AM) generated this result transmitted ref erence range: <=2. The reference range was not used to int erpret this result as normal/abnormal . [facility] AND [id number] 08:40:00 Test Item Value Reference Range Interpretation Comments UA WBC (test code = UA WBC) 3-5 /HPF [facility] AND [id number] 08:40:00 Test Item Value Reference Range Interpretation Comments UA Sq Epi (test code = UA Sq Epi) Rare /LPF [facility] AND [id number] 08:40:00 Test Item Value Reference Range Interpretation Comments UA Leuk Est (test code Trace *ABN*(02/13/16 3:40 = UA Leuk Est) AM) [facility] AND [id number] 08:40:00 Test Item Value Reference Range Interpretation Comments UA Nitrite (test code Negative (02/13/16 3:40 = UA Nitrite) AM) [facility] AND [id number] 08:40:00 Test Item Value Reference Range Interpretation Comments UA Urobilinogen (test code = UA 0.2 0.1-1.0 Urobilinogen) [facility] AND [id number] 08:40:00 Test Item Value Reference Range Interpretation Comments UA Ketones (test code Negative *NA*(02/13/16 = UA Ketones) 3:40 AM) [facility] AND [id number] 08:40:00 Test Item Value Reference Range Interpretation Comments UA Glucose (test code Negative (02/13/16 3:40 = UA Glucose) AM) [facility] AND [id number] 08:40:00 Test Item Value Reference Range Interpretation Comments UA Blood (test code = Large *ABN*(02/13/16 UA Blood) 3:40 AM) [facility] AND [id number] 08:40:00 Test Item Value Reference Range Interpretation Comments UA Bili (test code = Negative *NA*(02/13/16 UA Bili) 3:40 AM) [facility] [id number] 08:40:00 Test Item Value Reference Range Interpretation Comments UA Protein (test code = UA Protein) 30 mg/dL [facility] AND [id number] 08:40:00 Test Item Value Reference Range Interpretation Comments UA Spec Grav (test code = UA Spec 1.015 1 Grav) [facility] AND [id number] 08:40:00 Test Item Value Reference Range Interpretation Comments UA pH (test code = UA pH) 7.0 1 5.0-8.0 [facility] AND [id number] 08:40:00 Test Item Value Reference Range Interpretation Comments UA Color (test code = Red *ABN*(02/13/16 3:40 UA Color) AM) [facility] AND [id number] 08:40:00 Test Item Value Reference Range Interpretation Comments UA Turbidity (test code Bloody *ABN*(02/13/16 = UA Turbidity) 3:40 AM) [facility] AND [id number] 08:40:00 Test Item Value Reference Range Interpretation Comments UA Bacteria (test code = UA Occasional /HPF Bacteria) [facility] AND [id number] 08:40:00 Test Item Value Reference Range Interpretation Comments UA RBC (test Packed See_Comment [Automated mes shirley] code = UA RBC) *ABN*(02/13/16 3:40 The syst em which AM) generated this result transmitted ref erence range: <=2. The reference range was not used to int erpret this result as normal/abnormal . [facility] AND [id number] 08:40:00 Test Item Value Reference Range Interpretation Comments UA WBC (test code = UA WBC) 3-5 /HPF [facility] AND [id number] 08:40:00 Test Item Value Reference Range Interpretation Comments UA Sq Epi (test code = UA Sq Epi) Rare /LPF [facility] AND [id number] 08:40:00 Test Item Value Reference Range Interpretation Comments UA Leuk Est (test code Trace *ABN*(02/13/16 3:40 = UA Leuk Est) AM) [facility] AND [id number] 08:40:00 Test Item Value Reference Range Interpretation Comments UA Nitrite (test code Negative (02/13/16 3:40 = UA Nitrite) AM) [facility] AND [id number] 08:40:00 Test Item Value Reference Range Interpretation Comments UA Urobilinogen (test code = UA 0.2 0.1-1.0 Urobilinogen) [facility] AND [id number] 08:40:00 Test Item Value Reference Range Interpretation Comments UA Ketones (test code Negative *NA*(02/13/16 = UA Ketones) 3:40 AM) [facility] AND [id number] 08:40:00 Test Item Value Reference Range Interpretation Comments UA Glucose (test code Negative (02/13/16 3:40 = UA Glucose) AM) [facility] AND [id number] 08:40:00 Test Item Value Reference Range Interpretation Comments UA Blood (test code = Large *ABN*(02/13/16 UA Blood) 3:40 AM) [facility] AND [id number] 08:40:00 Test Item Value Reference Range Interpretation Comments UA Bili (test code = Negative *NA*(02/13/16 UA Bili) 3:40 AM) [facility] AND [id number] 08:40:00 Test Item Value Reference Range Interpretation Comments UA Protein (test code = UA Protein) 30 mg/dL [facility] AND [id number] 08:40:00 Test Item Value Reference Range Interpretation Comments UA Spec Grav (test code = UA Spec 1.015 1 Grav) [facility] AND [id number] 08:40:00 Test Item Value Reference Range Interpretation Comments UA pH (test code = UA pH) 7.0 1 5.0-8.0 [facility] AND [id number] 08:40:00 Test Item Value Reference Range Interpretation Comments UA Color (test code = Red *ABN*(02/13/16 3:40 UA Color) AM) [facility] AND [id number] 08:40:00 Test Item Value Reference Range Interpretation Comments UA Turbidity (test code Bloody *ABN*(02/13/16 = UA Turbidity) 3:40 AM) [facility] AND [id number] 08:40:00 Test Item Value Reference Range Interpretation Comments UA Bacteria (test code = UA Occasional /HPF Bacteria) [facility] AND [id number] 08:40:00 Test Item Value Reference Range Interpretation Comments UA RBC (test Packed See_Comment [Automated mes shirley] code = UA RBC) *ABN*(02/13/16 3:40 The syst em which AM) generated this result transmitted ref erence range: <=2. The reference range was not used to int erpret this result as normal/abnormal . [facility] AND [id number] 08:40:00 Test Item Value Reference Range Interpretation Comments UA WBC (test code = UA WBC) 3-5 /HPF [facility] AND [id number] 08:40:00 Test Item Value Reference Range Interpretation Comments UA Sq Epi (test code = UA Sq Epi) Rare /LPF [facility] AND [id number] 08:40:00 Test Item Value Reference Range Interpretation Comments UA Leuk Est (test code Trace *ABN*(02/13/16 3:40 = UA Leuk Est) AM) [facility] AND [id number] 08:40:00 Test Item Value Reference Range Interpretation Comments UA Nitrite (test code Negative (02/13/16 3:40 = UA Nitrite) AM) [facility] AND [id number] 08:40:00 Test Item Value Reference Range Interpretation Comments UA Urobilinogen (test code = UA 0.2 0.1-1.0 Urobilinogen) [facility] AND [id number] 08:40:00 Test Item Value Reference Range Interpretation Comments UA Ketones (test code Negative *NA*(02/13/16 = UA Ketones) 3:40 AM) [facility] AND [id number] 08:40:00 Test Item Value Reference Range Interpretation Comments UA Glucose (test code Negative (02/13/16 3:40 = UA Glucose) AM) [facility] AND [id number] 08:40:00 Test Item Value Reference Range Interpretation Comments UA Blood (test code = Large *ABN*(02/13/16 UA Blood) 3:40 AM) [facility] AND [id number] 08:40:00 Test Item Value Reference Range Interpretation Comments UA Bili (test code = Negative *NA*(02/13/16 UA Bili) 3:40 AM) [facility] AND [id number] 08:40:00 Test Item Value Reference Range Interpretation Comments UA Protein (test code = UA Protein) 30 mg/dL [facility] AND [id number] 08:40:00 Test Item Value Reference Range Interpretation Comments UA Spec Grav (test code = UA Spec 1.015 1 Grav) [facility] AND [id number] 08:40:00 Test Item Value Reference Range Interpretation Comments UA pH (test code = UA pH) 7.0 1 5.0-8.0 [facility] AND [id number] 08:40:00 Test Item Value Reference Range Interpretation Comments UA Color (test code = Red *ABN*(02/13/16 3:40 UA Color) AM) [facility] AND [id number] 08:40:00 Test Item Value Reference Range Interpretation Comments UA Turbidity (test code Bloody *ABN*(02/13/16 = UA Turbidity) 3:40 AM) [facility] AND [id number] 08:40:00 Test Item Value Reference Range Interpretation Comments UA Bacteria (test code = UA Occasional /HPF Bacteria) [facility] AND [id number] 08:40:00 Test Item Value Reference Range Interpretation Comments UA RBC (test Packed See_Comment [Automated mes shirley] code = UA RBC) *ABN*(02/13/16 3:40 The syst em which AM) generated this result transmitted ref erence range: <=2. The reference range was not used to int erpret this result as normal/abnormal . [facility] AND [id number] 08:40:00 Test Item Value Reference Range Interpretation Comments UA WBC (test code = UA WBC) 3-5 /HPF [facility] AND [id number] 08:40:00 Test Item Value Reference Range Interpretation Comments UA Sq Epi (test code = UA Sq Epi) Rare /LPF [facility] [id number] 08:40:00 Test Item Value Reference Range Interpretation Comments UA Leuk Est (test code Trace *ABN*(02/13/16 3:40 = UA Leuk Est) AM) [facility] [id number] 08:40:00 Test Item Value Reference Range Interpretation Comments UA Nitrite (test code Negative (02/13/16 3:40 = UA Nitrite) AM) [facility] [id number] 08:40:00 Test Item Value Reference Range Interpretation Comments UA Urobilinogen (test code = UA 0.2 0.1-1.0 Urobilinogen) [facility] [id number] 08:40:00 Test Item Value Reference Range Interpretation Comments UA Ketones (test code Negative *NA*(02/13/16 = UA Ketones) 3:40 AM) [facility] [id number] 08:40:00 Test Item Value Reference Range Interpretation Comments UA Glucose (test code Negative (02/13/16 3:40 = UA Glucose) AM) [facility] [id number] 08:40:00 Test Item Value Reference Range Interpretation Comments UA Blood (test code = Large *ABN*(02/13/16 UA Blood) 3:40 AM) [facility] [id number] 08:40:00 Test Item Value Reference Range Interpretation Comments UA Bili (test code = Negative *NA*(02/13/16 UA Bili) 3:40 AM) [facility] [id number] 08:40:00 Test Item Value Reference Range Interpretation Comments UA Protein (test code = UA Protein) 30 mg/dL [facility] [id number] 08:40:00 Test Item Value Reference Range Interpretation Comments UA Spec Grav (test code = UA Spec 1.015 1 Grav) [facility] [id number] 08:40:00 Test Item Value Reference Range Interpretation Comments UA pH (test code = UA pH) 7.0 1 5.0-8.0 [facility] [id number] 08:40:00 Test Item Value Reference Range Interpretation Comments UA Color (test code = Red *ABN*(02/13/16 3:40 UA Color) AM) [facility] [id number] 08:40:00 Test Item Value Reference Range Interpretation Comments UA Turbidity (test code Bloody *ABN*(02/13/16 = UA Turbidity) 3:40 AM) [facility] [id number] 08:40:00 Test Item Value Reference Range Interpretation Comments UA Bacteria (test code = UA Occasional /HPF Bacteria) [facility] [id number] 08:40:00 Test Item Value Reference Range Interpretation Comments UA RBC (test Packed See_Comment [Automated mes shirley] code = UA RBC) *ABN*(02/13/16 3:40 The syst em which AM) generated this result transmitted ref erence range: <=2. The reference range was not used to int erpret this result as normal/abnormal . [facility] [id number] 08:40:00 Test Item Value Reference Range Interpretation Comments UA WBC (test code = UA WBC) 3-5 /HPF [facility] [id number] 08:40:00 Test Item Value Reference Range Interpretation Comments UA Sq Epi (test code = UA Sq Epi) Rare /LPF [facility] [id number] 08:40:00 Test Item Value Reference Range Interpretation Comments UA Leuk Est (test code Trace *ABN*(02/13/16 3:40 = UA Leuk Est) AM) [facility] [id number] 08:40:00 Test Item Value Reference Range Interpretation Comments UA Nitrite (test code Negative (02/13/16 3:40 = UA Nitrite) AM) [facility] [id number] 08:40:00 Test Item Value Reference Range Interpretation Comments UA Urobilinogen (test code = UA 0.2 0.1-1.0 Urobilinogen) [facility] [id number] 08:40:00 Test Item Value Reference Range Interpretation Comments UA Ketones (test code Negative *NA*(02/13/16 = UA Ketones) 3:40 AM) [facility] [id number] 08:40:00 Test Item Value Reference Range Interpretation Comments UA Glucose (test code Negative (02/13/16 3:40 = UA Glucose) AM) [facility] [id number] 08:40:00 Test Item Value Reference Range Interpretation Comments UA Blood (test code = Large *ABN*(02/13/16 UA Blood) 3:40 AM) [facility] [id number] 08:40:00 Test Item Value Reference Range Interpretation Comments UA Bili (test code = Negative *NA*(02/13/16 UA Bili) 3:40 AM) [facility] [id number] 08:40:00 Test Item Value Reference Range Interpretation Comments UA Protein (test code = UA Protein) 30 mg/dL [facility] [id number] 08:40:00 Test Item Value Reference Range Interpretation Comments UA Spec Grav (test code = UA Spec 1.015 1 Grav) [facility] [id number] 08:40:00 Test Item Value Reference Range Interpretation Comments UA pH (test code = UA pH) 7.0 1 5.0-8.0 [facility] [id number] 08:40:00 Test Item Value Reference Range Interpretation Comments UA Color (test code = Red *ABN*(02/13/16 3:40 UA Color) AM) [facility] [id number] 08:40:00 Test Item Value Reference Range Interpretation Comments UA Turbidity (test code Bloody *ABN*(02/13/16 = UA Turbidity) 3:40 AM) [facility] [id number] 08:40:00 Test Item Value Reference Range Interpretation Comments UA Bacteria (test code = UA Occasional /HPF Bacteria) [facility] [id number] 08:40:00 Test Item Value Reference Range Interpretation Comments UA RBC (test Packed See_Comment [Automated mes shirley] code = UA RBC) *ABN*(02/13/16 3:40 The syst em which AM) generated this result transmitted ref erence range: <=2. The reference range was not used to int erpret this result as normal/abnormal . [facility] [id number] 08:40:00 Test Item Value Reference Range Interpretation Comments UA WBC (test code = UA WBC) 3-5 /HPF [facility] [id number] 08:40:00 Test Item Value Reference Range Interpretation Comments UA Sq Epi (test code = UA Sq Epi) Rare /LPF [facility] [id number] 08:40:00 Test Item Value Reference Range Interpretation Comments UA Leuk Est (test code Trace *ABN*(02/13/16 3:40 = UA Leuk Est) AM) [facility] [id number] 08:40:00 Test Item Value Reference Range Interpretation Comments UA Nitrite (test code Negative (02/13/16 3:40 = UA Nitrite) AM) [facility] [id number] 08:40:00 Test Item Value Reference Range Interpretation Comments UA Urobilinogen (test code = UA 0.2 0.1-1.0 Urobilinogen) [facility] [id number] 08:40:00 Test Item Value Reference Range Interpretation Comments UA Ketones (test code Negative *NA*(02/13/16 = UA Ketones) 3:40 AM) [facility] [id number] 08:40:00 Test Item Value Reference Range Interpretation Comments UA Glucose (test code Negative (02/13/16 3:40 = UA Glucose) AM) [facility] [id number] 08:40:00 Test Item Value Reference Range Interpretation Comments UA Blood (test code = Large *ABN*(02/13/16 UA Blood) 3:40 AM) [facility] [id number] 08:40:00 Test Item Value Reference Range Interpretation Comments UA Bili (test code = Negative *NA*(02/13/16 UA Bili) 3:40 AM) [facility] [id number] 08:40:00 Test Item Value Reference Range Interpretation Comments UA Protein (test code = UA Protein) 30 mg/dL [facility] [id number] 08:40:00 Test Item Value Reference Range Interpretation Comments UA Spec Grav (test code = UA Spec 1.015 1 Grav) [facility] [id number] 08:40:00 Test Item Value Reference Range Interpretation Comments UA pH (test code = UA pH) 7.0 1 5.0-8.0 [facility] [id number] 08:40:00 Test Item Value Reference Range Interpretation Comments UA Color (test code = Red *ABN*(02/13/16 3:40 UA Color) AM) [facility] [id number] 08:40:00 Test Item Value Reference Range Interpretation Comments UA Turbidity (test code Bloody *ABN*(02/13/16 = UA Turbidity) 3:40 AM) [facility] [id number] 08:40:00 Test Item Value Reference Range Interpretation Comments UA Bacteria (test code = UA Occasional /HPF Bacteria) [facility] [id number] 08:40:00 Test Item Value Reference Range Interpretation Comments UA RBC (test Packed See_Comment [Automated mes shirley] code = UA RBC) *ABN*(02/13/16 3:40 The syst em which AM) generated this result transmitted ref erence range: <=2. The reference range was not used to int erpret this result as normal/abnormal . [facility] [id number] 08:40:00 Test Item Value Reference Range Interpretation Comments UA WBC (test code = UA WBC) 3-5 /HPF [facility] [id number] 08:40:00 Test Item Value Reference Range Interpretation Comments UA Sq Epi (test code = UA Sq Epi) Rare /LPF [facility] [id number] 08:40:00 Test Item Value Reference Range Interpretation Comments UA Leuk Est (test code Trace *ABN*(02/13/16 3:40 = UA Leuk Est) AM) [facility] [id number] 08:40:00 Test Item Value Reference Range Interpretation Comments UA Nitrite (test code Negative (02/13/16 3:40 = UA Nitrite) AM) [facility] [id number] 08:40:00 Test Item Value Reference Range Interpretation Comments UA Urobilinogen (test code = UA 0.2 0.1-1.0 Urobilinogen) [facility] [id number] 08:40:00 Test Item Value Reference Range Interpretation Comments UA Ketones (test code Negative *NA*(02/13/16 = UA Ketones) 3:40 AM) [facility] [id number] 08:40:00 Test Item Value Reference Range Interpretation Comments UA Glucose (test code Negative (02/13/16 3:40 = UA Glucose) AM) [facility] [id number] 08:40:00 Test Item Value Reference Range Interpretation Comments UA Blood (test code = Large *ABN*(02/13/16 UA Blood) 3:40 AM) [facility] [id number] 08:40:00 Test Item Value Reference Range Interpretation Comments UA Bili (test code = Negative *NA*(02/13/16 UA Bili) 3:40 AM) [facility] [id number] 08:40:00 Test Item Value Reference Range Interpretation Comments UA Protein (test code = UA Protein) 30 mg/dL [facility] [id number] 08:40:00 Test Item Value Reference Range Interpretation Comments UA Spec Grav (test code = UA Spec 1.015 1 Grav) [facility] [id number] 08:40:00 Test Item Value Reference Range Interpretation Comments UA pH (test code = UA pH) 7.0 1 5.0-8.0 [facility] [id number] 08:40:00 Test Item Value Reference Range Interpretation Comments UA Color (test code = Red *ABN*(02/13/16 3:40 UA Color) AM) [facility] [id number] 08:40:00 Test Item Value Reference Range Interpretation Comments UA Turbidity (test code Bloody *ABN*(02/13/16 = UA Turbidity) 3:40 AM) [facility] [id number] 08:40:00 Test Item Value Reference Range Interpretation Comments UA Bacteria (test code = UA Occasional /HPF Bacteria) [facility] [id number] 08:40:00 Test Item Value Reference Range Interpretation Comments UA RBC (test Packed See_Comment [Automated mes shirley] code = UA RBC) *ABN*(02/13/16 3:40 The syst em which AM) generated this result transmitted ref erence range: <=2. The reference range was not used to int erpret this result as normal/abnormal . [facility] [id number] 08:40:00 Test Item Value Reference Range Interpretation Comments UA WBC (test code = UA WBC) 3-5 /HPF [facility] [id number] 08:40:00 Test Item Value Reference Range Interpretation Comments UA Sq Epi (test code = UA Sq Epi) Rare /LPF [facility] [id number] 08:40:00 Test Item Value Reference Range Interpretation Comments UA Leuk Est (test code Trace *ABN*(02/13/16 3:40 = UA Leuk Est) AM) [facility] [id number] 08:40:00 Test Item Value Reference Range Interpretation Comments UA Nitrite (test code Negative (02/13/16 3:40 = UA Nitrite) AM) [facility] [id number] 08:40:00 Test Item Value Reference Range Interpretation Comments UA Urobilinogen (test code = UA 0.2 0.1-1.0 Urobilinogen) [facility] [id number] 08:40:00 Test Item Value Reference Range Interpretation Comments UA Ketones (test code Negative *NA*(02/13/16 = UA Ketones) 3:40 AM) [facility] [id number] 08:40:00 Test Item Value Reference Range Interpretation Comments UA Glucose (test code Negative (02/13/16 3:40 = UA Glucose) AM) [facility] [id number] 08:40:00 Test Item Value Reference Range Interpretation Comments UA Blood (test code = Large *ABN*(02/13/16 UA Blood) 3:40 AM) [facility] [id number] 08:40:00 Test Item Value Reference Range Interpretation Comments UA Bili (test code = Negative *NA*(02/13/16 UA Bili) 3:40 AM) [facility] [id number] 08:40:00 Test Item Value Reference Range Interpretation Comments UA Protein (test code = UA Protein) 30 mg/dL [facility] [id number] 08:40:00 Test Item Value Reference Range Interpretation Comments UA Spec Grav (test code = UA Spec 1.015 1 Grav) [facility] [id number] 08:40:00 Test Item Value Reference Range Interpretation Comments UA pH (test code = UA pH) 7.0 1 5.0-8.0 [facility] [id number] 08:40:00 Test Item Value Reference Range Interpretation Comments UA Color (test code = Red *ABN*(02/13/16 3:40 UA Color) AM) [facility] [id number] 08:40:00 Test Item Value Reference Range Interpretation Comments UA Turbidity (test code Bloody *ABN*(02/13/16 = UA Turbidity) 3:40 AM) [facility] [id number] 08:40:00 Test Item Value Reference Range Interpretation Comments UA Bacteria (test code = UA Occasional /HPF Bacteria) [facility] [id number] 08:40:00 Test Item Value Reference Range Interpretation Comments UA RBC (test Packed See_Comment [Automated mes shirley] code = UA RBC) *ABN*(02/13/16 3:40 The syst em which AM) generated this result transmitted ref erence range: <=2. The reference range was not used to int erpret this result as normal/abnormal . [facility] [id number] 08:40:00 Test Item Value Reference Range Interpretation Comments UA WBC (test code = UA WBC) 3-5 /HPF [facility] [id number] 08:40:00 Test Item Value Reference Range Interpretation Comments UA Sq Epi (test code = UA Sq Epi) Rare /LPF [facility] [id number] 08:40:00 Test Item Value Reference Range Interpretation Comments UA Leuk Est (test code Trace *ABN*(02/13/16 3:40 = UA Leuk Est) AM) [facility] [id number] 08:40:00 Test Item Value Reference Range Interpretation Comments UA Nitrite (test code Negative (02/13/16 3:40 = UA Nitrite) AM) [facility] [id number] 08:40:00 Test Item Value Reference Range Interpretation Comments UA Urobilinogen (test code = UA 0.2 0.1-1.0 Urobilinogen) [facility] [id number] 08:40:00 Test Item Value Reference Range Interpretation Comments UA Ketones (test code Negative *NA*(02/13/16 = UA Ketones) 3:40 AM) [facility] [id number] 08:40:00 Test Item Value Reference Range Interpretation Comments UA Glucose (test code Negative (02/13/16 3:40 = UA Glucose) AM) [facility] [id number] 08:40:00 Test Item Value Reference Range Interpretation Comments UA Blood (test code = Large *ABN*(02/13/16 UA Blood) 3:40 AM) [facility] [id number] 08:40:00 Test Item Value Reference Range Interpretation Comments UA Bili (test code = Negative *NA*(02/13/16 UA Bili) 3:40 AM) [facility] [id number] 08:40:00 Test Item Value Reference Range Interpretation Comments UA Protein (test code = UA Protein) 30 mg/dL [facility] [id number] 08:40:00 Test Item Value Reference Range Interpretation Comments UA Spec Grav (test code = UA Spec 1.015 1 Grav) [facility] [id number] 08:40:00 Test Item Value Reference Range Interpretation Comments UA pH (test code = UA pH) 7.0 1 5.0-8.0 [facility] [id number] 08:40:00 Test Item Value Reference Range Interpretation Comments UA Color (test code = Red *ABN*(02/13/16 3:40 UA Color) AM) [facility] [id number] 08:40:00 Test Item Value Reference Range Interpretation Comments UA Turbidity (test code Bloody *ABN*(02/13/16 = UA Turbidity) 3:40 AM) [facility] [id number] 08:40:00 Test Item Value Reference Range Interpretation Comments UA Bacteria (test code = UA Occasional /HPF Bacteria) [facility] [id number] 08:40:00 Test Item Value Reference Range Interpretation Comments UA RBC (test Packed See_Comment [Automated mes shirley] code = UA RBC) *ABN*(02/13/16 3:40 The syst em which AM) generated this result transmitted ref erence range: <=2. The reference range was not used to int erpret this result as normal/abnormal . [facility] [id number] 08:40:00 Test Item Value Reference Range Interpretation Comments UA WBC (test code = UA WBC) 3-5 /HPF [facility] [id number] 08:40:00 Test Item Value Reference Range Interpretation Comments UA Sq Epi (test code = UA Sq Epi) Rare /LPF [facility] [id number] 08:40:00 Test Item Value Reference Range Interpretation Comments UA Leuk Est (test code Trace *ABN*(02/13/16 3:40 = UA Leuk Est) AM) [facility] [id number] 08:40:00 Test Item Value Reference Range Interpretation Comments UA Nitrite (test code Negative (02/13/16 3:40 = UA Nitrite) AM) [facility] [id number] 08:40:00 Test Item Value Reference Range Interpretation Comments UA Urobilinogen (test code = UA 0.2 0.1-1.0 Urobilinogen) [facility] [id number] 08:40:00 Test Item Value Reference Range Interpretation Comments UA Ketones (test code Negative *NA*(02/13/16 = UA Ketones) 3:40 AM) [facility] [id number] 08:40:00 Test Item Value Reference Range Interpretation Comments UA Glucose (test code Negative (02/13/16 3:40 = UA Glucose) AM) [facility] [id number] 08:40:00 Test Item Value Reference Range Interpretation Comments UA Blood (test code = Large *ABN*(02/13/16 UA Blood) 3:40 AM) [facility] [id number] 08:40:00 Test Item Value Reference Range Interpretation Comments UA Bili (test code = Negative *NA*(02/13/16 UA Bili) 3:40 AM) [facility] [id number] 08:40:00 Test Item Value Reference Range Interpretation Comments UA Protein (test code = UA Protein) 30 mg/dL [facility] [id number] 08:40:00 Test Item Value Reference Range Interpretation Comments UA Spec Grav (test code = UA Spec 1.015 1 Grav) [facility] [id number] 08:40:00 Test Item Value Reference Range Interpretation Comments UA pH (test code = UA pH) 7.0 1 5.0-8.0 [facility] [id number] 08:40:00 Test Item Value Reference Range Interpretation Comments UA Color (test code = Red *ABN*(02/13/16 3:40 UA Color) AM) [facility] [id number] 08:40:00 Test Item Value Reference Range Interpretation Comments UA Turbidity (test code Bloody *ABN*(02/13/16 = UA Turbidity) 3:40 AM) [facility] [id number] 08:40:00 Test Item Value Reference Range Interpretation Comments UA Bacteria (test code = UA Occasional /HPF Bacteria) [facility] [id number] 08:40:00 Test Item Value Reference Range Interpretation Comments UA RBC (test Packed See_Comment [Automated mes shirley] code = UA RBC) *ABN*(02/13/16 3:40 The syst em which AM) generated this result transmitted ref erence range: <=2. The reference range was not used to int erpret this result as normal/abnormal . [facility] [id number] 08:40:00 Test Item Value Reference Range Interpretation Comments UA WBC (test code = UA WBC) 3-5 /HPF [facility] [id number] 08:40:00 Test Item Value Reference Range Interpretation Comments UA Sq Epi (test code = UA Sq Epi) Rare /LPF [facility] [id number] 08:40:00 Test Item Value Reference Range Interpretation Comments UA Leuk Est (test code Trace *ABN*(02/13/16 3:40 = UA Leuk Est) AM) [facility] [id number] 08:40:00 Test Item Value Reference Range Interpretation Comments UA Nitrite (test code Negative (02/13/16 3:40 = UA Nitrite) AM) [facility] [id number] 08:40:00 Test Item Value Reference Range Interpretation Comments UA Urobilinogen (test code = UA 0.2 0.1-1.0 Urobilinogen) [facility] [id number] 08:40:00 Test Item Value Reference Range Interpretation Comments UA Ketones (test code Negative *NA*(02/13/16 = UA Ketones) 3:40 AM) [facility] [id number] 08:40:00 Test Item Value Reference Range Interpretation Comments UA Glucose (test code Negative (02/13/16 3:40 = UA Glucose) AM) [facility] [id number] 08:40:00 Test Item Value Reference Range Interpretation Comments UA Blood (test code = Large *ABN*(02/13/16 UA Blood) 3:40 AM) [facility] [id number] 08:40:00 Test Item Value Reference Range Interpretation Comments UA Bili (test code = Negative *NA*(02/13/16 UA Bili) 3:40 AM) [facility] [id number] 08:40:00 Test Item Value Reference Range Interpretation Comments UA Protein (test code = UA Protein) 30 mg/dL [facility] [id number] 08:40:00 Test Item Value Reference Range Interpretation Comments UA Spec Grav (test code = UA Spec 1.015 1 Grav) [facility] [id number] 08:40:00 Test Item Value Reference Range Interpretation Comments UA pH (test code = UA pH) 7.0 1 5.0-8.0 [facility] [id number] 08:40:00 Test Item Value Reference Range Interpretation Comments UA Color (test code = Red *ABN*(02/13/16 3:40 UA Color) AM) [facility] [id number] 08:40:00 Test Item Value Reference Range Interpretation Comments UA Turbidity (test code Bloody *ABN*(02/13/16 = UA Turbidity) 3:40 AM) [facility] [id number] 08:40:00 Test Item Value Reference Range Interpretation Comments UA Bacteria (test code = UA Occasional /HPF Bacteria) [facility] [id number] 08:40:00 Test Item Value Reference Range Interpretation Comments UA RBC (test Packed See_Comment [Automated mes shirley] code = UA RBC) *ABN*(02/13/16 3:40 The syst em which AM) generated this result transmitted ref erence range: <=2. The reference range was not used to int erpret this result as normal/abnormal . [facility] [id number] 08:40:00 Test Item Value Reference Range Interpretation Comments UA WBC (test code = UA WBC) 3-5 /HPF [facility] [id number] 08:40:00 Test Item Value Reference Range Interpretation Comments UA Sq Epi (test code = UA Sq Epi) Rare /LPF [facility] [id number] 08:40:00 Test Item Value Reference Range Interpretation Comments UA Leuk Est (test code Trace *ABN*(02/13/16 3:40 = UA Leuk Est) AM) [facility] AND [id number] 08:40:00 Test Item Value Reference Range Interpretation Comments UA Nitrite (test code Negative (02/13/16 3:40 = UA Nitrite) AM) [facility] AND [id number] 08:40:00 Test Item Value Reference Range Interpretation Comments UA Urobilinogen (test code = UA 0.2 0.1-1.0 Urobilinogen) [facility] AND [id number] 08:40:00 Test Item Value Reference Range Interpretation Comments UA Ketones (test code Negative *NA*(02/13/16 = UA Ketones) 3:40 AM) [facility] AND [id number] 08:40:00 Test Item Value Reference Range Interpretation Comments UA Glucose (test code Negative (02/13/16 3:40 = UA Glucose) AM) [facility] AND [id number] 08:40:00 Test Item Value Reference Range Interpretation Comments UA Blood (test code = Large *ABN*(02/13/16 UA Blood) 3:40 AM) [facility] AND [id number] 08:40:00 Test Item Value Reference Range Interpretation Comments UA Bili (test code = Negative *NA*(02/13/16 UA Bili) 3:40 AM) [facility] AND [id number] 08:40:00 Test Item Value Reference Range Interpretation Comments UA Protein (test code = UA Protein) 30 mg/dL [facility] AND [id number] 08:40:00 Test Item Value Reference Range Interpretation Comments UA Spec Grav (test code = UA Spec 1.015 1 Grav) [facility] AND [id number] 08:40:00 Test Item Value Reference Range Interpretation Comments UA pH (test code = UA pH) 7.0 1 5.0-8.0 [facility] AND [id number] 08:40:00 Test Item Value Reference Range Interpretation Comments UA Color (test code = Red *ABN*(02/13/16 3:40 UA Color) AM) [facility] [id number] 08:40:00 Test Item Value Reference Range Interpretation Comments UA Turbidity (test code Bloody *ABN*(02/13/16 = UA Turbidity) 3:40 AM) [facility] AND [id number] 08:40:00 Test Item Value Reference Range Interpretation Comments UA Bacteria (test code = UA Occasional /HPF Bacteria) [facility] AND [id number] 08:40:00 Test Item Value Reference Range Interpretation Comments UA RBC (test Packed See_Comment [Automated mes shirley] code = UA RBC) *ABN*(02/13/16 3:40 The syst em which AM) generated this result transmitted ref erence range: <=2. The reference range was not used to int erpret this result as normal/abnormal . [facility] [id number] 08:40:00 Test Item Value Reference Range Interpretation Comments UA WBC (test code = UA WBC) 3-5 /HPF [facility] AND [id number] 08:40:00 Test Item Value Reference Range Interpretation Comments UA Sq Epi (test code = UA Sq Epi) Rare /LPF [facility] [employer] [id number] 06:44:00 Test Item Value Reference Range Interpretation Comments Antibody Scrn (test Negative (02/13/16 1:44 code = Antibody Scrn) AM) [facility] [employer] [id number] 06:44:00 Test Item Value Reference Range Interpretation Comments ABO/Rh (test code = ABO/Rh) A POS [facility] [employer] [id number] 06:44:00 Test Item Value Reference Range Interpretation Comments CK MB Index (test 1.6 See_Comment [Automate d message] The code = CK MB Index) system w [facility] generated this result transmit gaye reference range : <=2.5. The reference range was not used to interpr et this result as satish l/abnormal. [employer] [id number] 06:44:00 Test Item Value Reference Range Interpretation Comments CK MB (test code = CK MB) 0.9 0.5-3.6 [facility] [id number] 06:44:00 Test Item Value Reference Range Interpretation Comments Total CK (test code = Total CK) 57 12-191 [facility] [employer] [id number] 06:44:00 Test Item Value Reference Range Interpretation Comments Troponin-I (test code no gt See_Comment [Auto mated message] The = Troponin-I) system which g enerated this result transmit gaye reference range : <=0.40. The reference r ozzy was not used to interpr et this result as satish l/abnormal. [facility] [employer]2016-07-03 06:44:00 Test Item Value Reference Range Interpretation Comments Albumin Lvl (test code = Albumin Lvl) 3.5 3.5-5.0 [facility] [employer] [id number] 06:44:00 Test Item Value Reference Range Interpretation Comments Total Protein (test code = Total 7.0 6.4-8.4 Protein) [facility] [employer] [id number] 06:44:00 Test Item Value Reference Range Interpretation Comments ALT (test code = ALT) 19 See_Comment [Auto mated message] The system which ge nerated this result transmit gaey reference range : <=65. The reference range was not used to interpr et this result as satish l/abnormal. [facility] [employer]2016-07-03 06:44:00 Test Item Value Reference Range Interpretation Comments AST (test code = AST) 10 See_Comment [Auto mated message] The system which ge nerated this result transmit gaye reference range : <=37. The reference range was not used to interpr et this result as satish l/abnormal. [facility] [employer] [id number] 06:44:00 Test Item Value Reference Range Interpretation Comments Alk Phos (test code = Alk Phos) 79 39-136 [facility] [employer] [id number] 06:44:00 Test Item Value Reference Range Interpretation Comments Bili Total (test code = Bili Total) 0.4 0.2-1.3 [facility] [employer]2016-07-03 06:44:00 Test Item Value Reference Range Interpretation Comments Bili Direct (test code 0.1 See_Comment [Aut omated message] The = Bili Direct) system which generated this result tra nsmitted reference range : <=0.3. The reference r ozzy was not used to int erpret this result as satish l/abnormal. [facility]2016-07-03 06:44:00 Test Item Value Reference Range Interpretation Comments Globulin (test code = Globulin) 3.5 2.0-4.0 [facility]2016-07-03 06:44:00 Test Item Value Reference Range Interpretation Comments A/G Ratio (test code = A/G Ratio) 1.0 0.7-1.6 [facility]2016-07-03 06:44:00 Test Item Value Reference Range Interpretation Comments Bili Indirect (test 0.3 See_Comment [Automa gaye message] The code = Bili Indirect) system which generated this result tra nsmitted reference range : <=1.0. The reference r ozzy was not used to int erpret this result as normal/abnormal . [facility]2016-07-03 06:44:00 Test Item Value Reference Range Interpretation Comments eGFR (test code = eGFR) [address] [place] [id number] 06:44:00 Test Item Value Reference Range Interpretation Comments BUN (test code = BUN) 8 7-22 [facility]2016-07-03 06:44:00 Test Item Value Reference Range Interpretation Comments Glucose Lvl (test code = Glucose Lvl) 91 70-99 [facility]2016-07-03 06:44:00 Test Item Value Reference Range Interpretation Comments Sodium Lvl (test code = Sodium Lvl) 138 135-145 [facility]2016-07-03 06:44:00 Test Item Value Reference Range Interpretation Comments Creatinine Lvl (test code = Creatinine 0.70 0.50-1.40 Lvl) [facility]2016-07-03 06:44:00 Test Item Value Reference Range Interpretation Comments Potassium Lvl (test code = Potassium 3.3 3.5-5.1 Lvl) [facility]2016-07-03 06:44:00 Test Item Value Reference Range Interpretation Comments CO2 (test code = CO2) 25 24-32 [facility]2016-07-03 06:44:00 Test Item Value Reference Range Interpretation Comments Chloride Lvl (test code = Chloride Lvl) 106 95-109 [facility]2016-07-03 06:44:00 Test Item Value Reference Range Interpretation Comments Calcium Lvl (test code = Calcium Lvl) 8.1 8.5-10.5 [facility]2016-07-03 06:44:00 Test Item Value Reference Range Interpretation Comments AGAP (test code = AGAP) 10.3 10.0-20.0 [facility]2016-07-03 06:44:00 Test Item Value Reference Range Interpretation Comments Magnesium Lvl (test code = Magnesium 2.2 1.8-2.4 Lvl) [facility]OGEJPVFME8563-06-06 06:44:00 Test Item Value Reference Range Interpretation Comments S Preg (test code = S Negative *NA*(02/13/16 Preg) 1:44 AM) [facility] HospitalThxfxvkQOANWHUNLF5617-53-58 06:44:00 Test Item Value Reference Range Interpretation Comments Basophils (test code = 0.1 See_Comment [Aut omated message] The Basophils) system which ge nerated this result tra nsmitted reference range : <=1.0. The reference r ozzy was not used to int erpret this result as normal/abnormal . [facility] Hospit[id number] 06:44:00 Test Item Value Reference Range Interpretation Comments Monocytes # (test code 0.3 See_Comment [Aut omated message] The = Monocytes #) system which generated this result tra nsmitted reference range : <=0.8. The reference r ozzy was not used to int erpret this result as normal/abnormal . [facility] HospitalZyonokaAUWMSTURXN0903-83-29 06:44:00 Test Item Value Reference Range Interpretation Comments Eosinophils # (test code 0.1 See_Comment [A utomated message] The = Eosinophils #) system whic h generated this result tra nsmitted reference range : <=0.5. The reference r ozzy was not used to int erpret this result as normal/abnormal . [facility] HospitalWozfhabUZXBWFGSBO2414-34-40 06:44:00 Test Item Value Reference Range Interpretation Comments Segs-Bands # (test code = Segs-Bands #) 9.3 1.5-8.1 [facility] Hospit[id number] 06:44:00 Test Item Value Reference Range Interpretation Comments Lymphocytes # (test code = Lymphocytes 2.6 1.0-5.5 #) [facility] Hospit[id number] 06:44:00 Test Item Value Reference Range Interpretation Comments Basophils # (test code 0.0 See_Comment [Aut omated message] The = Basophils #) system which generated this result tra nsmitted reference range : <=0.2. The reference r ozzy was not used to int erpret this result as normal/abnormal . [facility] HospitalLurevnjXWHFXWGIET7825-18-91 06:44:00 Test Item Value Reference Range Interpretation Comments Microcyte (test code = 1+ *ABN*(02/13/16 1:44 Microcyte) AM) [facility] Hospit[id number] 06:44:00 Test Item Value Reference Range Interpretation Comments Giant Plt (test code Moderate *ABN*(02/13/16 = Giant Plt) 1:44 AM) [facility] HospitalXkipujbUVQZAGQBVJ4805-84-38 06:44:00 Test Item Value Reference Range Interpretation Comments Segs (test code = Segs) 75.2 45.0-75.0 [facility] HospitalOaxxwhvSDCVTNBPIW9539-69-12 06:44:00 Test Item Value Reference Range Interpretation Comments Hypochrom (test code = 1+ (02/13/16 1:44 AM) Hypochrom) [facility] HospitalNvecneaEGXZAPDGCX7912-68-83 06:44:00 Test Item Value Reference Range Interpretation Comments Eosinophils (test code = 0.7 See_Comment [A utomated message] The Eosinophils) system which ge nerated this result tra nsmitted reference range : <=4.0. The reference r zozy was not used to int erpret this result as normal/abnormal . [facility] HospitalHfccukhYNLIQVFWJK7828-42-55 06:44:00 Test Item Value Reference Range Interpretation Comments Lymphocytes (test code = Lymphocytes) 21.3 20.0-40.0 [facility] HospitalPvjanreSCVDCXKRPC5634-38-90 06:44:00 Test Item Value Reference Range Interpretation Comments Monocytes (test code = Monocytes) 2.7 2.0-12.0 [facility] HospitalJzmidmrBCMKFKGCTF0413-34-62 06:44:00 Test Item Value Reference Range Interpretation Comments MPV (test code = MPV) 9.5 7.4-10.4 [facility] HospitalFiggwfhRJZFMEDNSP4541-35-77 06:44:00 Test Item Value Reference Range Interpretation Comments RDW (test code = RDW) 17.8 11.5-14.5 [facility] HospitalBbmjmvbYINRPRKBGS1397-39-77 06:44:00 Test Item Value Reference Range Interpretation Comments MCV (test code = MCV) 73.2 80.0-98.0 [facility] HospitalQwteeedNKDXCCLXPI6443-21-76 06:44:00 Test Item Value Reference Range Interpretation Comments MCH (test code = MCH) 21.9 pg 27.0-31.0 [facility]DhlnseuPPPCZAPXSD6632-37-14 06:44:00 Test Item Value Reference Range Interpretation Comments Hct (test code = Hct) 27.2 36.0-48.0 [facility] HospitalZmrqbjqQCOQUQOCSB2213-06-28 06:44:00 Test Item Value Reference Range Interpretation Comments MCHC (test code = MCHC) 29.9 32.0-36.0 [facility] HospitalVegfwqtYOQEHLBYGM8466-37-70 06:44:00 Test Item Value Reference Range Interpretation Comments Platelet (test code = Platelet) 400 133-450 [facility] HospitalGozuzkpCZIROLJIPB7883-14-61 06:44:00 Test Item Value Reference Range Interpretation Comments WBC (test code = WBC) 12.4 3.7-10.4 [facility] HospitalIkohtqcWKCTYGZDRC0072-60-41 06:44:00 Test Item Value Reference Range Interpretation Comments RBC (test code = RBC) 3.72 4.20-5.40 [facility] HospitalGadclrpZLAJRMNSOQ2055-93-33 06:44:00 Test Item Value Reference Range Interpretation Comments Hgb (test code = Hgb) 8.1 12.0-16.0 [facility] HospitalCxinapcCVMPPRVRWX4970-45-14 06:44:00 Test Item Value Reference Range Interpretation Comments PTT (test code = PTT) 27.2 s 22.9-35.8 [facility] HospitalLxaqiyoWRZJOXOUQF6964-21-19 06:44:00 Test Item Value Reference Range Interpretation Comments PT (test code = PT) 14.7 s 12.0-14.7 [facility] HospitalMxyqkreCOMAAOYMBK5155-31-86 06:44:00 Test Item Value Reference Range Interpretation Comments INR (test code = INR) 1.12 0.85-1.17 [facility] BANK [id number] 06:44:00 Test Item Value Reference Range Interpretation Comments Antibody Scrn (test Negative (02/13/16 1:44 code = Antibody Scrn) AM) [facility] [employer] BANK [id number] 06:44:00 Test Item Value Reference Range Interpretation Comments ABO/Rh (test code = ABO/Rh) A POS [facility] [employer] [id number] 06:44:00 Test Item Value Reference Range Interpretation Comments CK MB Index (test 1.6 See_Comment [Automate d message] The code = CK MB Index) system w [facility] generated this result transmit gaye reference range : <=2.5. The reference range was not used to interpr et this result as satish l/abnormal. [facility] [employer]2016-07-03 06:44:00 Test Item Value Reference Range Interpretation Comments CK MB (test code = CK MB) 0.9 0.5-3.6 [facility] [employer]2016-07-03 06:44:00 Test Item Value Reference Range Interpretation Comments Total CK (test code = Total CK) 57 12-191 [facility] [employer] [id number] 06:44:00 Test Item Value Reference Range Interpretation Comments Troponin-I (test code no gt See_Comment [Auto mated message] The = Troponin-I) system which g enerated this result transmit gaye reference range : <=0.40. The reference r ozzy was not used to interpr et this result as satish l/abnormal. [employer] [id number] 06:44:00 Test Item Value Reference Range Interpretation Comments Albumin Lvl (test code = Albumin Lvl) 3.5 3.5-5.0 [facility] [employer] [id number] 06:44:00 Test Item Value Reference Range Interpretation Comments Total Protein (test code = Total 7.0 6.4-8.4 Protein) [facility] [employer] [id number] 06:44:00 Test Item Value Reference Range Interpretation Comments ALT (test code = ALT) 19 See_Comment [Auto mated message] The system which ge nerated this result transmit gaye reference range : <=65. The reference range was not used to interpr et this result as satish l/abnormal. [employer] [id number] 06:44:00 Test Item Value Reference Range Interpretation Comments AST (test code = AST) 10 See_Comment [Auto mated message] The system which ge nerated this result transmit gaye reference range : <=37. The reference range was not used to interpr et this result as satish l/abnormal. [facility]2016-07-03 06:44:00 Test Item Value Reference Range Interpretation Comments Alk Phos (test code = Alk Phos) 79 39-136 [facility]2016-07-03 06:44:00 Test Item Value Reference Range Interpretation Comments Bili Total (test code = Bili Total) 0.4 0.2-1.3 [facility]2016-07-03 06:44:00 Test Item Value Reference Range Interpretation Comments Bili Direct (test code 0.1 See_Comment [Aut omated message] The = Bili Direct) system which generated this result tra nsmitted reference range : <=0.3. The reference r ozzy was not used to int erpret this result as satish l/abnormal. [facility]2016-07-03 06:44:00 Test Item Value Reference Range Interpretation Comments Globulin (test code = Globulin) 3.5 2.0-4.0 [facility]2016-07-03 06:44:00 Test Item Value Reference Range Interpretation Comments A/G Ratio (test code = A/G Ratio) 1.0 0.7-1.6 [place] [id number] 06:44:00 Test Item Value Reference Range Interpretation Comments Bili Indirect (test 0.3 See_Comment [Automa gaye message] The code = Bili Indirect) system which generated this result tra nsmitted reference range : <=1.0. The reference r ozzy was not used to int erpret this result as normal/abnormal . [facility]2016-07-03 06:44:00 Test Item Value Reference Range Interpretation Comments eGFR (test code = eGFR) 107 [facility]2016-07-03 06:44:00 Test Item Value Reference Range Interpretation Comments BUN (test code = BUN) 8 7-22 [facility]2016-07-03 06:44:00 Test Item Value Reference Range Interpretation Comments Glucose Lvl (test code = Glucose Lvl) 91 70-99 [facility]2016-07-03 06:44:00 Test Item Value Reference Range Interpretation Comments Sodium Lvl (test code = Sodium Lvl) 138 135-145 [facility]2016-07-03 06:44:00 Test Item Value Reference Range Interpretation Comments Creatinine Lvl (test code = Creatinine 0.70 0.50-1.40 Lvl) [facility]2016-07-03 06:44:00 Test Item Value Reference Range Interpretation Comments Potassium Lvl (test code = Potassium 3.3 3.5-5.1 Lvl) [facility]2016-07-03 06:44:00 Test Item Value Reference Range Interpretation Comments CO2 (test code = CO2) 25 24-32 [facility]2016-07-03 06:44:00 Test Item Value Reference Range Interpretation Comments Chloride Lvl (test code = Chloride Lvl) 106 95-109 [facility]2016-07-03 06:44:00 Test Item Value Reference Range Interpretation Comments Calcium Lvl (test code = Calcium Lvl) 8.1 8.5-10.5 [facility]2016-07-03 06:44:00 Test Item Value Reference Range Interpretation Comments AGAP (test code = AGAP) 10.3 10.0-20.0 [facility]2016-07-03 06:44:00 Test Item Value Reference Range Interpretation Comments Magnesium Lvl (test code = Magnesium 2.2 1.8-2.4 Lvl) [id number] 06:44:00 Test Item Value Reference Range Interpretation Comments S Preg (test code = S Negative *NA*(02/13/16 Preg) 1:44 AM) [facility] HospitalWrwmxodJRGMKXNGVD8761-27-97 06:44:00 Test Item Value Reference Range Interpretation Comments Basophils (test code = 0.1 See_Comment [Aut omated message] The Basophils) system which ge nerated this result tra nsmitted reference range : <=1.0. The reference r ozzy was not used to int erpret this result as normal/abnormal . [facility] HospitalNdnuyvsQFLZAGMACG7212-37-87 06:44:00 Test Item Value Reference Range Interpretation Comments Monocytes # (test code 0.3 See_Comment [Aut omated message] The = Monocytes #) system which generated this result tra nsmitted reference range : <=0.8. The reference r ozzy was not used to int erpret this result as normal/abnormal . [facility] HospitalPzpxscdBWMJGVRDAQ6680-46-73 06:44:00 Test Item Value Reference Range Interpretation Comments Eosinophils # (test code 0.1 See_Comment [A utomated message] The = Eosinophils #) system whic h generated this result tra nsmitted reference range : <=0.5. The reference r ozzy was not used to int erpret this result as normal/abnormal . [facility] HospitalHqbyyplBSIMGQWPAK6558-36-65 06:44:00 Test Item Value Reference Range Interpretation Comments Segs-Bands # (test code = Segs-Bands #) 9.3 1.5-8.1 [facility] HospitalSatqewoDEOMOBQADA4749-89-59 06:44:00 Test Item Value Reference Range Interpretation Comments Lymphocytes # (test code = Lymphocytes 2.6 1.0-5.5 #) [facility] HospitalJzjjtgxFWTPEVPDRO5790-85-73 06:44:00 Test Item Value Reference Range Interpretation Comments Basophils # (test code 0.0 See_Comment [Aut omated message] The = Basophils #) system which generated this result tra nsmitted reference range : <=0.2. The reference r ozzy was not used to int erpret this result as normal/abnormal . [facility] HospitalFyisfxgEHPBCOCYIO2492-32-27 06:44:00 Test Item Value Reference Range Interpretation Comments Microcyte (test code = 1+ *ABN*(02/13/16 1:44 Microcyte) AM) [facility] HospitalPliaxauXORCGEXTCY6034-18-52 06:44:00 Test Item Value Reference Range Interpretation Comments Giant Plt (test code Moderate *ABN*(02/13/16 = Giant Plt) 1:44 AM) [facility] HospitalXpjsysnWMTZWPREVC0866-55-79 06:44:00 Test Item Value Reference Range Interpretation Comments Segs (test code = Segs) 75.2 45.0-75.0 [facility] HospitalMsacxviYMJRBKFDZP4764-19-25 06:44:00 Test Item Value Reference Range Interpretation Comments Hypochrom (test code = 1+ (02/13/16 1:44 AM) Hypochrom) [facility] HospitalYpfpajbGQPPXYWFCJ9141-08-19 06:44:00 Test Item Value Reference Range Interpretation Comments Eosinophils (test code = 0.7 See_Comment [A utomated message] The Eosinophils) system which ge nerated this result tra nsmitted reference range : <=4.0. The reference r ozzy was not used to int erpret this result as normal/abnormal . [facility] HospitalFchknqmUKZMSRUBIA5068-03-13 06:44:00 Test Item Value Reference Range Interpretation Comments Lymphocytes (test code = Lymphocytes) 21.3 20.0-40.0 [facility] HospitalLqtamtfYPTCDZLZWS3503-47-08 06:44:00 Test Item Value Reference Range Interpretation Comments Monocytes (test code = Monocytes) 2.7 2.0-12.0 [facility] HospitalAnqpmpoKFVTQPLCLH9013-51-93 06:44:00 Test Item Value Reference Range Interpretation Comments MPV (test code = MPV) 9.5 7.4-10.4 [facility] HospitalBhtrctdJESEZNXVLL9202-06-38 06:44:00 Test Item Value Reference Range Interpretation Comments RDW (test code = RDW) 17.8 11.5-14.5 [facility] HospitalEgfvtilNNSAAEYYTX5806-58-62 06:44:00 Test Item Value Reference Range Interpretation Comments MCV (test code = MCV) 73.2 80.0-98.0 [facility] HospitalOvvrcdyBBNYIECXVH2390-34-24 06:44:00 Test Item Value Reference Range Interpretation Comments MCH (test code = MCH) 21.9 pg 27.0-31.0 [facility] HospitalYmaamawEVHWJFJGCM6173-92-14 06:44:00 Test Item Value Reference Range Interpretation Comments Hct (test code = Hct) 27.2 36.0-48.0 [facility] HospitalGjueonpKRFSZYFHAR5700-72-14 06:44:00 Test Item Value Reference Range Interpretation Comments MCHC (test code = MCHC) 29.9 32.0-36.0 [facility] HospitalFbqkumtJZBCRALSPW1368-44-54 06:44:00 Test Item Value Reference Range Interpretation Comments Platelet (test code = Platelet) 400 133-450 [facility] HospitalEaakxurMRHYLVCDJG6793-31-48 06:44:00 Test Item Value Reference Range Interpretation Comments WBC (test code = WBC) 12.4 3.7-10.4 [facility] HospitalBjemlkePHOUUEOOUB1958-82-99 06:44:00 Test Item Value Reference Range Interpretation Comments RBC (test code = RBC) 3.72 4.20-5.40 [facility] BieusriVQLFZZMNSX0727-24-53 06:44:00 Test Item Value Reference Range Interpretation Comments Hgb (test code = Hgb) 8.1 12.0-16.0 [facility] EeuooadBDWHVFHICR3366-98-26 06:44:00 Test Item Value Reference Range Interpretation Comments PTT (test code = PTT) 27.2 s 22.9-35.8 [facility] BtkbawsKQAXGNYHSM7558-67-80 06:44:00 Test Item Value Reference Range Interpretation Comments PT (test code = PT) 14.7 s 12.0-14.7 [facility] MmymwabULXVQKNFOZ7320-55-03 06:44:00 Test Item Value Reference Range Interpretation Comments INR (test code = INR) 1.12 0.85-1.17 [facility] [employer] [id number] 06:44:00 Test Item Value Reference Range Interpretation Comments Antibody Scrn (test Negative (02/13/16 1:44 code = Antibody Scrn) AM) [facility] [employer] [id number] 06:44:00 Test Item Value Reference Range Interpretation Comments ABO/Rh (test code = ABO/Rh) A POS [facility] [employer]2016-07-03 06:44:00 Test Item Value Reference Range Interpretation Comments CK MB Index (test 1.6 See_Comment [Automate d message] The code = CK MB Index) system w [facility] generated this result transmit gaye reference range : <=2.5. The reference range was not used to interpr et this result as satish l/abnormal. [email or web address] 06:44:00 Test Item Value Reference Range Interpretation Comments CK MB (test code = CK MB) 0.9 0.5-3.6 [facility] [employer]2016-07-03 06:44:00 Test Item Value Reference Range Interpretation Comments Total CK (test code = Total CK) 57 12-191 [facility] [employer]2016-07-03 06:44:00 Test Item Value Reference Range Interpretation Comments Troponin-I (test code no gt See_Comment [Auto mated message] The = Troponin-I) system which g enerated this result transmit gaye reference range : <=0.40. The reference r ozzy was not used to interpr et this result as satish l/abnormal. [facility]2016-07-03 06:44:00 Test Item Value Reference Range Interpretation Comments Albumin Lvl (test code = Albumin Lvl) 3.5 3.5-5.0 [facility]2016-07-03 06:44:00 Test Item Value Reference Range Interpretation Comments Total Protein (test code = Total 7.0 6.4-8.4 Protein) [facility]2016-07-03 06:44:00 Test Item Value Reference Range Interpretation Comments ALT (test code = ALT) 19 See_Comment [Auto mated message] The system which ge nerated this result transmit gaye reference range : <=65. The reference range was not used to interpr et this result as satish l/abnormal. [place] 358136-07-03 06:44:00 Test Item Value Reference Range Interpretation Comments AST (test code = AST) 10 See_Comment [Auto mated message] The system which ge nerated this result transmit gaye reference range : <=37. The reference range was not used to interpr et this result as satish l/abnormal. [facility]2016-07-03 06:44:00 Test Item Value Reference Range Interpretation Comments Alk Phos (test code = Alk Phos) 79 39-136 [facility]2016-07-03 06:44:00 Test Item Value Reference Range Interpretation Comments Bili Total (test code = Bili Total) 0.4 0.2-1.3 [facility]2016-07-03 06:44:00 Test Item Value Reference Range Interpretation Comments Bili Direct (test code 0.1 See_Comment [Aut omated message] The = Bili Direct) system which generated this result tra nsmitted reference range : <=0.3. The reference r ozzy was not used to int erpret this result as satish l/abnormal. [facility]2016-07-03 06:44:00 Test Item Value Reference Range Interpretation Comments Globulin (test code = Globulin) 3.5 2.0-4.0 [place] 358136-07-03 06:44:00 Test Item Value Reference Range Interpretation Comments A/G Ratio (test code = A/G Ratio) 1.0 0.7-1.[address]07-03 06:44:00 Test Item Value Reference Range Interpretation Comments Bili Indirect (test 0.3 See_Comment [Automa gaye message] The code = Bili Indirect) system which generated this result tra nsmitted reference range : <=1.0. The reference r ozzy was not used to int erpret this result as normal/abnormal . [facility]2016-07-03 06:44:00 Test Item Value Reference Range Interpretation Comments eGFR (test code = eGFR) 107 [facility]2016-07-03 06:44:00 Test Item Value Reference Range Interpretation Comments BUN (test code = BUN) 8 7-22 [facility]2016-07-03 06:44:00 Test Item Value Reference Range Interpretation Comments Glucose Lvl (test code = Glucose Lvl) 91 70-99 [facility]2016-07-03 06:44:00 Test Item Value Reference Range Interpretation Comments Sodium Lvl (test code = Sodium Lvl) 138 135-145 [facility]2016-07-03 06:44:00 Test Item Value Reference Range Interpretation Comments Creatinine Lvl (test code = Creatinine 0.70 0.50-1.40 Lvl) [facility]2016-07-03 06:44:00 Test Item Value Reference Range Interpretation Comments Potassium Lvl (test code = Potassium 3.3 3.5-5.1 Lvl) [facility]2016-07-03 06:44:00 Test Item Value Reference Range Interpretation Comments CO2 (test code = CO2) 25 24-32 [facility]2016-07-03 06:44:00 Test Item Value Reference Range Interpretation Comments Chloride Lvl (test code = Chloride Lvl) 106 95-109 [facility]2016-07-03 06:44:00 Test Item Value Reference Range Interpretation Comments Calcium Lvl (test code = Calcium Lvl) 8.1 8.5-10.5 [facility]2016-07-03 06:44:00 Test Item Value Reference Range Interpretation Comments AGAP (test code = AGAP) 10.3 10.0-20.0 [place] 358136-07-03 06:44:00 Test Item Value Reference Range Interpretation Comments Magnesium Lvl (test code = Magnesium 2.2 1.8-2.4 Lvl) [place] 97878016-07-03 06:44:00 Test Item Value Reference Range Interpretation Comments S Preg (test code = S Negative *NA*(02/13/16 Preg) 1:44 AM) [facility] HospitalZixwtuaMRFLVEDVKP0334-50-00 06:44:00 Test Item Value Reference Range Interpretation Comments Basophils (test code = 0.1 See_Comment [Aut omated message] The Basophils) system which ge nerated this result tra nsmitted reference range : <=1.0. The reference r ozzy was not used to int erpret this result as normal/abnormal . [facility] HospitalTvpukqnPMPHNLEVNW2878-75-09 06:44:00 Test Item Value Reference Range Interpretation Comments Monocytes # (test code 0.3 See_Comment [Aut omated message] The = Monocytes #) system which generated this result tra nsmitted reference range : <=0.8. The reference r ozzy was not used to int erpret this result as normal/abnormal . [facility] HospitalMurvrcxCUERSGGJCE3571-03-52 06:44:00 Test Item Value Reference Range Interpretation Comments Eosinophils # (test code 0.1 See_Comment [A utomated message] The = Eosinophils #) system whic h generated this result tra nsmitted reference range : <=0.5. The reference r ozzy was not used to int erpret this result as normal/abnormal . [facility] HospitalQplrajqSHQPMNZZSZ2105-14-69 06:44:00 Test Item Value Reference Range Interpretation Comments Segs-Bands # (test code = Segs-Bands #) 9.3 1.5-8.1 [facility] HospitalPlkzocxVLNELNONFV7109-18-98 06:44:00 Test Item Value Reference Range Interpretation Comments Lymphocytes # (test code = Lymphocytes 2.6 1.0-5.5 #) [facility] HospitalEemtygoITEHKRTPPG7057-90-75 06:44:00 Test Item Value Reference Range Interpretation Comments Basophils # (test code 0.0 See_Comment [Aut omated message] The = Basophils #) system which generated this result tra nsmitted reference range : <=0.2. The reference r ozzy was not used to int erpret this result as normal/abnormal . [facility] HospitalFhvuyziIORRXMYBHJ2229-64-78 06:44:00 Test Item Value Reference Range Interpretation Comments Microcyte (test code = 1+ *ABN*(02/13/16 1:44 Microcyte) AM) [facility] HospitalXytlosiAGXGTLPAQM4075-25-60 06:44:00 Test Item Value Reference Range Interpretation Comments Giant Plt (test code Moderate *ABN*(02/13/16 = Giant Plt) 1:44 AM) [facility] HospitalJsfwkdcMHNEMJYDWF0934-75-41 06:44:00 Test Item Value Reference Range Interpretation Comments Segs (test code = Segs) 75.2 45.0-75.0 [facility] HospitalDjdvpmzTBLCUBOKRJ7493-98-33 06:44:00 Test Item Value Reference Range Interpretation Comments Hypochrom (test code = 1+ (02/13/16 1:44 AM) Hypochrom) [facility] HospitalGztebtxEXQLIRGQBI3535-57-83 06:44:00 Test Item Value Reference Range Interpretation Comments Eosinophils (test code = 0.7 See_Comment [A utomated message] The Eosinophils) system which ge nerated this result tra nsmitted reference range : <=4.0. The reference r ozzy was not used to int erpret this result as normal/abnormal . [facility] HospitalZigyetfYEVSIUKKMF5027-39-53 06:44:00 Test Item Value Reference Range Interpretation Comments Lymphocytes (test code = Lymphocytes) 21.3 20.0-40.0 [facility] HospitalTfyxjcjPSIHLDKDLA8044-85-77 06:44:00 Test Item Value Reference Range Interpretation Comments Monocytes (test code = Monocytes) 2.7 2.0-12.0 [facility] HospitalGqpmthvSEWPWLWHZK3736-04-61 06:44:00 Test Item Value Reference Range Interpretation Comments MPV (test code = MPV) 9.5 7.4-10.4 [facility] HospitalBvwzmvwSDFAZKYGZM3346-30-01 06:44:00 Test Item Value Reference Range Interpretation Comments RDW (test code = RDW) 17.8 11.5-14.5 [facility] HospitalZnwfzlrRBRDNCNJHL3882-50-54 06:44:00 Test Item Value Reference Range Interpretation Comments MCV (test code = MCV) 73.2 80.0-98.0 [facility] HospitalGqnjiseBRPODVXJDD8029-79-25 06:44:00 Test Item Value Reference Range Interpretation Comments MCH (test code = MCH) 21.9 pg 27.0-31.0 [facility] HospitalNqkivlaVTPHRUFGRF8163-83-18 06:44:00 Test Item Value Reference Range Interpretation Comments Hct (test code = Hct) 27.2 36.0-48.0 [facility]vyeffkAPCGXCNODV0589-94-55 06:44:00 Test Item Value Reference Range Interpretation Comments MCHC (test code = MCHC) 29.9 32.0-36.0 [facility]HwznqdrSIYSMEGLQN3337-19-62 06:44:00 Test Item Value Reference Range Interpretation Comments Platelet (test code = Platelet) 400 133-450 [facility]frfsztNRUMDDFAEL5917-35-83 06:44:00 Test Item Value Reference Range Interpretation Comments WBC (test code = WBC) 12.4 3.7-10.4 [facility]bergPvclhkwXJWQGQIVOV0163-01-82 06:44:00 Test Item Value Reference Range Interpretation Comments RBC (test code = RBC) 3.72 4.20-5.40 [facility] HospitalNhfwyoaVGRZNPKIMZ4785-86-43 06:44:00 Test Item Value Reference Range Interpretation Comments Hgb (test code = Hgb) 8.1 12.0-16.0 [facility]bergAsyhynrWJVVWQMHLG3985-76-64 06:44:00 Test Item Value Reference Range Interpretation Comments PTT (test code = PTT) 27.2 s 22.9-35.8 [facility] KlebergWhrzvgdTUVPWVMWNA4381-58-82 06:44:00 Test Item Value Reference Range Interpretation Comments PT (test code = PT) 14.7 s 12.0-14.7 [facility] HospitalHiaisttWSXSHFUPJI4585-91-86 06:44:00 Test Item Value Reference Range Interpretation Comments INR (test code = INR) 1.12 0.85-1.17 [facility] [employer] [id number] 06:44:00 Test Item Value Reference Range Interpretation Comments Antibody Scrn (test Negative (02/13/16 1:44 code = Antibody Scrn) AM) [facility] [employer] [id number] 06:44:00 Test Item Value Reference Range Interpretation Comments ABO/Rh (test code = ABO/Rh) A POS [facility] [id number] 06:44:00 Test Item Value Reference Range Interpretation Comments CK MB Index (test 1.6 See_Comment [Automate d message] The code = CK MB Index) system w [facility] generated this result transmit gaye reference range : <=2.5. The reference range was not used to interpr et this result as satish l/abnormal. [facility] [employer] [id number] 06:44:00 Test Item Value Reference Range Interpretation Comments CK MB (test code = CK MB) 0.9 0.5-3.6 [facility] CenterSign[facility] AJUHZMY7095-54-25 06:44:00 Test Item Value Reference Range Interpretation Comments Total CK (test code = Total CK) 57 12-191 [facility]loc[facility] WXNZEOO5945-52-08 06:44:00 Test Item Value Reference Range Interpretation Comments Troponin-I (test code no gt See_Comment [Auto mated message] The = Troponin-I) system which g enerated this result transmit gaye reference range : <=0.40. The reference r ozzy was not used to interpr et this result as satish l/abnormal. [facility] [employer] [id number] 06:44:00 Test Item Value Reference Range Interpretation Comments Albumin Lvl (test code = Albumin Lvl) 3.5 3.5-5.0 [facility] [employer] [id number] 06:44:00 Test Item Value Reference Range Interpretation Comments Total Protein (test code = Total 7.0 6.4-8.4 Protein) [facility] [employer] [id number] 06:44:00 Test Item Value Reference Range Interpretation Comments ALT (test code = ALT) 19 See_Comment [Auto mated message] The system which ge nerated this result transmit gaye reference range : <=65. The reference range was not used to interpr et this result as satish l/abnormal. [facility] [employer] [id number] 06:44:00 Test Item Value Reference Range Interpretation Comments AST (test code = AST) 10 See_Comment [Auto mated message] The system which ge nerated this result transmit gaye reference range : <=37. The reference range was not used to interpr et this result as satish l/abnormal. [facility] [employer] [id number] 06:44:00 Test Item Value Reference Range Interpretation Comments Alk Phos (test code = Alk Phos) 79 39-136 [facility] [employer] [id number] 06:44:00 Test Item Value Reference Range Interpretation Comments Bili Total (test code = Bili Total) 0.4 0.2-1.3 [place] 358136-07-03 06:44:00 Test Item Value Reference Range Interpretation Comments Bili Direct (test code 0.1 See_Comment [Aut omated message] The = Bili Direct) system which generated this result tra nsmitted reference range : <=0.3. The reference r ozzy was not used to int erpret this result as satish l/abnormal. [place] 358136-07-03 06:44:00 Test Item Value Reference Range Interpretation Comments Globulin (test code = Globulin) 3.5 2.0-4.0 [place] 358136-07-03 06:44:00 Test Item Value Reference Range Interpretation Comments A/G Ratio (test code = A/G Ratio) 1.0 0.7-1.6 [place] 358136-07-03 06:44:00 Test Item Value Reference Range Interpretation Comments Bili Indirect (test 0.3 See_Comment [Automa gaye message] The code = Bili Indirect) system which generated this result tra nsmitted reference range : <=1.0. The reference r ozzy was not used to int erpret this result as normal/abnormal . [facility]2016-07-03 06:44:00 Test Item Value Reference Range Interpretation Comments eGFR (test code = eGFR) 107 [facility]2016-07-03 06:44:00 Test Item Value Reference Range Interpretation Comments BUN (test code = BUN) 8 7-22 [facility]2016-07-03 06:44:00 Test Item Value Reference Range Interpretation Comments Glucose Lvl (test code = Glucose Lvl) 91 70-99 [facility]2016-07-03 06:44:00 Test Item Value Reference Range Interpretation Comments Sodium Lvl (test code = Sodium Lvl) 138 135-145 [place] 358136-07-03 06:44:00 Test Item Value Reference Range Interpretation Comments Creatinine Lvl (test code = Creatinine 0.70 0.50-1.40 Lvl) [place] 358136-07-03 06:44:00 Test Item Value Reference Range Interpretation Comments Potassium Lvl (test code = Potassium 3.3 3.5-5.1 Lvl) [facility]2016-07-03 06:44:00 Test Item Value Reference Range Interpretation Comments CO2 (test code = CO2) 25 24-32 [facility]2016-07-03 06:44:00 Test Item Value Reference Range Interpretation Comments Chloride Lvl (test code = Chloride Lvl) 106 95-109 [facility]2016-07-03 06:44:00 Test Item Value Reference Range Interpretation Comments Calcium Lvl (test code = Calcium Lvl) 8.1 8.5-10.5 [facility]2016-07-03 06:44:00 Test Item Value Reference Range Interpretation Comments AGAP (test code = AGAP) 10.3 10.0-20.0 [facility]2016-07-03 06:44:00 Test Item Value Reference Range Interpretation Comments Magnesium Lvl (test code = Magnesium 2.2 1.8-2.4 Lvl) [place] 97878016-07-03 06:44:00 Test Item Value Reference Range Interpretation Comments S Preg (test code = S Negative *NA*(02/13/16 Preg) 1:44 AM) [facility] HospitalAjeakhfHJCETLTXIZ9316-97-02 06:44:00 Test Item Value Reference Range Interpretation Comments Basophils (test code = 0.1 See_Comment [Aut omated message] The Basophils) system which ge nerated this result tra nsmitted reference range : <=1.0. The reference r ozzy was not used to int erpret this result as normal/abnormal . [facility] HospitalWovnvlaTSZYCQPDRT4309-33-85 06:44:00 Test Item Value Reference Range Interpretation Comments Monocytes # (test code 0.3 See_Comment [Aut omated message] The = Monocytes #) system which generated this result tra nsmitted reference range : <=0.8. The reference r ozzy was not used to int erpret this result as normal/abnormal . [facility] HospitalRlonkaaFLELXNWLAS4146-45-20 06:44:00 Test Item Value Reference Range Interpretation Comments Eosinophils # (test code 0.1 See_Comment [A utomated message] The = Eosinophils #) system whic h generated this result tra nsmitted reference range : <=0.5. The reference r ozzy was not used to int erpret this result as normal/abnormal . [facility] HospitalOzofqgyNXCWVOWIPT5335-24-83 06:44:00 Test Item Value Reference Range Interpretation Comments Segs-Bands # (test code = Segs-Bands #) 9.3 1.5-8.1 [facility] HospitalYtzbnqkMEXBXVIPCQ2141-60-01 06:44:00 Test Item Value Reference Range Interpretation Comments Lymphocytes # (test code = Lymphocytes 2.6 1.0-5.5 #) [facility] HospitalPbspchaFUQMFQZUAR2633-69-53 06:44:00 Test Item Value Reference Range Interpretation Comments Basophils # (test code 0.0 See_Comment [Aut omated message] The = Basophils #) system which generated this result tra nsmitted reference range : <=0.2. The reference r ozzy was not used to int erpret this result as normal/abnormal . [facility] HospitalBoaaockUNXUHWSPEP7902-19-18 06:44:00 Test Item Value Reference Range Interpretation Comments Microcyte (test code = 1+ *ABN*(02/13/16 1:44 Microcyte) AM) [facility] HospitalIiqrpxsXSMRZDUMLJ9732-40-33 06:44:00 Test Item Value Reference Range Interpretation Comments Giant Plt (test code Moderate *ABN*(02/13/16 = Giant Plt) 1:44 AM) [facility] HospitalSrkynelKORIFTTDKN8977-34-64 06:44:00 Test Item Value Reference Range Interpretation Comments Segs (test code = Segs) 75.2 45.0-75.0 [facility] HospitalDfugxtuKBXOXXSBZR9973-18-54 06:44:00 Test Item Value Reference Range Interpretation Comments Hypochrom (test code = 1+ (02/13/16 1:44 AM) Hypochrom) [facility] HospitalBrsyscsNPHWYDVSLB2036-22-62 06:44:00 Test Item Value Reference Range Interpretation Comments Eosinophils (test code = 0.7 See_Comment [A utomated message] The Eosinophils) system which ge nerated this result tra nsmitted reference range : <=4.0. The reference r ozzy was not used to int erpret this result as normal/abnormal . [facility] HospitalDuyelzaHFPVKWBYRL4404-24-11 06:44:00 Test Item Value Reference Range Interpretation Comments Lymphocytes (test code = Lymphocytes) 21.3 20.0-40.0 [facility] HospitalSsaxhzxFIBZNRWHCE1907-62-47 06:44:00 Test Item Value Reference Range Interpretation Comments Monocytes (test code = Monocytes) 2.7 2.0-12.0 [facility] HospitalIykwgstDYCEFGXVST7391-91-34 06:44:00 Test Item Value Reference Range Interpretation Comments MPV (test code = MPV) 9.5 7.4-10.4 [facility] HospitalPvjumitHRGYDLGCNM0555-28-64 06:44:00 Test Item Value Reference Range Interpretation Comments RDW (test code = RDW) 17.8 11.5-14.5 [facility] HospitalBlrdmmsDLERGYZZRZ5896-23-33 06:44:00 Test Item Value Reference Range Interpretation Comments MCV (test code = MCV) 73.2 80.0-98.0 [facility] HospitalZkndoprCFAXIMFFIO3282-20-35 06:44:00 Test Item Value Reference Range Interpretation Comments MCH (test code = MCH) 21.9 pg 27.0-31.0 [facility] HospitalSahcebjMETSKXZRIN5817-90-91 06:44:00 Test Item Value Reference Range Interpretation Comments Hct (test code = Hct) 27.2 36.0-48.0 [facility] HospitalUdyvedeDTLIVPFKGT5319-65-40 06:44:00 Test Item Value Reference Range Interpretation Comments MCHC (test code = MCHC) 29.9 32.0-36.0 [facility] HospitalNzzyanqSRYKSVLTQI2219-34-87 06:44:00 Test Item Value Reference Range Interpretation Comments Platelet (test code = Platelet) 400 133-450 [facility] HospitalNnxsxixZSLZSPMBIS6213-32-95 06:44:00 Test Item Value Reference Range Interpretation Comments WBC (test code = WBC) 12.4 3.7-10.4 [facility] HospitalKshkjriICPPBDDHNR6542-89-21 06:44:00 Test Item Value Reference Range Interpretation Comments RBC (test code = RBC) 3.72 4.20-5.40 [facility] HospitalWbymkwaVMBKHVAHNM8277-55-69 06:44:00 Test Item Value Reference Range Interpretation Comments Hgb (test code = Hgb) 8.1 12.0-16.0 [facility] HospitalCmskvcvBIFBNCNBZR6075-61-90 06:44:00 Test Item Value Reference Range Interpretation Comments PTT (test code = PTT) 27.2 s 22.9-35.8 [facility] HospitalGbmwtgkXKJZABOEUB8608-91-87 06:44:00 Test Item Value Reference Range Interpretation Comments PT (test code = PT) 14.7 s 12.0-14.7 [facility] HospitalSgaatbzCQYBWCUBLL3562-52-22 06:44:00 Test Item Value Reference Range Interpretation Comments INR (test code = INR) 1.12 0.85-1.17 [employer] [id number] 06:44:00 Test Item Value Reference Range Interpretation Comments Antibody Scrn (test Negative (02/13/16 1:44 code = Antibody Scrn) AM) [facility] SOECTZT2506-68-29 06:44:00 Test Item Value Reference Range Interpretation Comments ABO/Rh (test code = ABO/Rh) A POS [email or web address] 06:44:00 Test Item Value Reference Range Interpretation Comments CK MB Index (test 1.6 See_Comment [Automate d message] The code = CK MB Index) system w [facility] generated this result transmit gaye reference range : <=2.5. The reference range was not used to interpr et this result as satish l/abnormal. [email or web address] 06:44:00 Test Item Value Reference Range Interpretation Comments CK MB (test code = CK MB) 0.9 0.5-3.6 [email or web address] 06:44:00 Test Item Value Reference Range Interpretation Comments Total CK (test code = Total CK) 57 12-191 [email or web address] 06:44:00 Test Item Value Reference Range Interpretation Comments Troponin-I (test code no gt See_Comment [Auto mated message] The = Troponin-I) system which g enerated this result transmit gaye reference range : <=0.40. The reference r ozzy was not used to interpr et this result as satish l/abnormal. [employer] [id number] 06:44:00 Test Item Value Reference Range Interpretation Comments Albumin Lvl (test code = Albumin Lvl) 3.5 3.5-5.0 [employer]2016-07-03 06:44:00 Test Item Value Reference Range Interpretation Comments Total Protein (test code = Total 7.0 6.4-8.4 Protein) [employer] [id number] 06:44:00 Test Item Value Reference Range Interpretation Comments ALT (test code = ALT) 19 See_Comment [Auto mated message] The system which ge nerated this result transmit gaye reference range : <=65. The reference range was not used to interpr et this result as satish l/abnormal. [facility] CenterGreenWave RealityATRIUM HEALTH PROVIDENCEDKYEH7680-44-02 06:44:00 Test Item Value Reference Range Interpretation Comments AST (test code = AST) 10 See_Comment [Auto mated message] The system which ge nerated this result transmit gaye reference range : <=37. The reference range was not used to interpr et this result as satish l/abnormal. [place] 358136-07-03 06:44:00 Test Item Value Reference Range Interpretation Comments Alk Phos (test code = Alk Phos) 79 39-136 [facility] CenterGreenWave RealityATRIUM HEALTH PROVIDENCEAKXQX9268-34-73 06:44:00 Test Item Value Reference Range Interpretation Comments Bili Total (test code = Bili Total) 0.4 0.2-1.3 [place] 358136-07-03 06:44:00 Test Item Value Reference Range Interpretation Comments Bili Direct (test code 0.1 See_Comment [Aut omated message] The = Bili Direct) system which generated this result tra nsmitted reference range : <=0.3. The reference r ozzy was not used to int erpret this result as satish l/abnormal. [facility] [facility] 06:[facility]00 Test Item Value Reference Range Interpretation Comments Globulin (test code = Globulin) 3.5 2.0-4.0 [place] 358136-07-03 06:44:00 Test Item Value Reference Range Interpretation Comments A/G Ratio (test code = A/G Ratio) 1.0 0.7-1.6 [place] 358136-07-03 06:44:00 Test Item Value Reference Range Interpretation Comments Bili Indirect (test 0.3 See_Comment [Automa gaye message] The code = Bili Indirect) system which generated this result tra nsmitted reference range : <=1.0. The reference r ozzy was not used to int erpret this result as normal/abnormal . [place] 358136-07-03 06:44:00 Test Item Value Reference Range Interpretation Comments eGFR (test code = eGFR) 107 [facility]2016-07-03 06:44:00 Test Item Value Reference Range Interpretation Comments BUN (test code = BUN) 8 7-22 [facility]2016-07-03 06:44:00 Test Item Value Reference Range Interpretation Comments Glucose Lvl (test code = Glucose Lvl) 91 70-99 [facility]2016-07-03 06:44:00 Test Item Value Reference Range Interpretation Comments Sodium Lvl (test code = Sodium Lvl) 138 135-145 [facility]2016-07-03 06:44:00 Test Item Value Reference Range Interpretation Comments Creatinine Lvl (test code = Creatinine 0.70 0.50-1.40 Lvl) [facility]2016-07-03 06:44:00 Test Item Value Reference Range Interpretation Comments Potassium Lvl (test code = Potassium 3.3 3.5-5.1 Lvl) [facility]2016-07-03 06:44:00 Test Item Value Reference Range Interpretation Comments CO2 (test code = CO2) 25 24-32 [facility]2016-07-03 06:44:00 Test Item Value Reference Range Interpretation Comments Chloride Lvl (test code = Chloride Lvl) 106 95-109 [facility]2016-07-03 06:44:00 Test Item Value Reference Range Interpretation Comments Calcium Lvl (test code = Calcium Lvl) 8.1 8.5-10.5 [facility]2016-07-03 06:44:00 Test Item Value Reference Range Interpretation Comments AGAP (test code = AGAP) 10.3 10.0-20.0 [facility]2016-07-03 06:44:00 Test Item Value Reference Range Interpretation Comments Magnesium Lvl (test code = Magnesium 2.2 1.8-2.4 Lvl) [facility]un[facility]psvDWSJIOBUGDMFV1474-85-67 06:44:00 Test Item Value Reference Range Interpretation Comments S Preg (test code = S Negative *NA*(02/13/16 Preg) 1:44 AM) [facility]mnjPSYKXNHOWH0243-92-06 06:44:00 Test Item Value Reference Range Interpretation Comments Basophils (test code = 0.1 See_Comment [Aut omated message] The Basophils) system which ge nerated this result tra nsmitted reference range : <=1.0. The reference r ozzy was not used to int erpret this result as normal/abnormal . [facility] HospitalRllgnzkUOZJZFYEIY0199-36-14 06:44:00 Test Item Value Reference Range Interpretation Comments Monocytes # (test code 0.3 See_Comment [Aut omated message] The = Monocytes #) system which generated this result tra nsmitted reference range : <=0.8. The reference r ozzy was not used to int erpret this result as normal/abnormal . [facility] HospitalSxisceeTYQEQYXKYT6193-22-03 06:44:00 Test Item Value Reference Range Interpretation Comments Eosinophils # (test code 0.1 See_Comment [A utomated message] The = Eosinophils #) system whic h generated this result tra nsmitted reference range : <=0.5. The reference r ozzy was not used to int erpret this result as normal/abnormal . [facility] HospitalDcaeydfKFRGROYSVO1260-06-95 06:44:00 Test Item Value Reference Range Interpretation Comments Segs-Bands # (test code = Segs-Bands #) 9.3 1.5-8.1 [facility] HospitalUrlamyhMJIWRQKCEB7458-62-84 06:44:00 Test Item Value Reference Range Interpretation Comments Lymphocytes # (test code = Lymphocytes 2.6 1.0-5.5 #) [facility] HospitalOlmjkdvAGYKVTOYUD8589-64-92 06:44:00 Test Item Value Reference Range Interpretation Comments Basophils # (test code 0.0 See_Comment [Aut omated message] The = Basophils #) system which generated this result tra nsmitted reference range : <=0.2. The reference r ozzy was not used to int erpret this result as normal/abnormal . [facility] HospitalWcavqzoTMSMJGJPGE2599-99-00 06:44:00 Test Item Value Reference Range Interpretation Comments Microcyte (test code = 1+ *ABN*(02/13/16 1:44 Microcyte) AM) [facility] HospitalRawzwvvXFJLYXYLEJ4447-21-70 06:44:00 Test Item Value Reference Range Interpretation Comments Giant Plt (test code Moderate *ABN*(02/13/16 = Giant Plt) 1:44 AM) [facility] HospitalZxlppzfVTUKZJFGID3736-13-62 06:44:00 Test Item Value Reference Range Interpretation Comments Segs (test code = Segs) 75.2 45.0-75.0 [facility] HospitalOlnfbffACZJGMLHKL9982-65-41 06:44:00 Test Item Value Reference Range Interpretation Comments Hypochrom (test code = 1+ (02/13/16 1:44 AM) Hypochrom) [facility] HospitalMzfpewsQZBNJGRDDS9384-60-51 06:44:00 Test Item Value Reference Range Interpretation Comments Eosinophils (test code = 0.7 See_Comment [A utomated message] The Eosinophils) system which ge nerated this result tra nsmitted reference range : <=4.0. The reference r ozzy was not used to int erpret this result as normal/abnormal . [facility] HospitalCdfkjyoLJQHOTWURM2352-64-57 06:44:00 Test Item Value Reference Range Interpretation Comments Lymphocytes (test code = Lymphocytes) 21.3 20.0-40.0 [facility] HospitalYulvnclKPYUJGDNMA4777-60-79 06:44:00 Test Item Value Reference Range Interpretation Comments Monocytes (test code = Monocytes) 2.7 2.0-12.0 [facility] HospitalRocteyzEEATQLVIHP7950-73-40 06:44:00 Test Item Value Reference Range Interpretation Comments MPV (test code = MPV) 9.5 7.4-10.4 [facility] HospitalVbchlqdHBOILUWMKY7954-30-59 06:44:00 Test Item Value Reference Range Interpretation Comments RDW (test code = RDW) 17.8 11.5-14.5 [facility] HospitalKsdrmdbDIDKPYVGCJ0985-58-45 06:44:00 Test Item Value Reference Range Interpretation Comments MCV (test code = MCV) 73.2 80.0-98.0 [facility] HospitalQexyhswMDVOVXPBOB4277-96-70 06:44:00 Test Item Value Reference Range Interpretation Comments MCH (test code = MCH) 21.9 pg 27.0-31.0 [facility] HospitalNbcbqmePGHFOMJWTX9786-24-51 06:44:00 Test Item Value Reference Range Interpretation Comments Hct (test code = Hct) 27.2 36.0-48.0 [facility] HospitalKlnjdpjPNORNESMKH6070-10-08 06:44:00 Test Item Value Reference Range Interpretation Comments MCHC (test code = MCHC) 29.9 32.0-36.0 [facility] HospitalVygpxrwEKUNNUHVIF6958-07-04 06:44:00 Test Item Value Reference Range Interpretation Comments Platelet (test code = Platelet) 400 133-450 [facility] HospitalMapdavaITBADDTNGJ8818-95-12 06:44:00 Test Item Value Reference Range Interpretation Comments WBC (test code = WBC) 12.4 3.7-10.4 [employer]CvdhpszTXWTFPSPSR0487-53-09 06:44:00 Test Item Value Reference Range Interpretation Comments RBC (test code = RBC) 3.72 4.20-5.40 [employer] EnergyUguawshEZYCZEPHQR3638-83-59 06:44:00 Test Item Value Reference Range Interpretation Comments Hgb (test code = Hgb) 8.1 12.0-16.0 [facility] NkdwijqDTBTITVOMP5250-36-56 06:44:00 Test Item Value Reference Range Interpretation Comments PTT (test code = PTT) 27.2 s 22.9-35.8 [employer] EnergyRpzoicvANJQFYJCQA3309-67-37 06:44:00 Test Item Value Reference Range Interpretation Comments PT (test code = PT) 14.7 s 12.0-14.7 [employer] EnergyKxzgrpoGNUWVNQFZT7441-34-72 06:44:00 Test Item Value Reference Range Interpretation Comments INR (test code = INR) 1.12 0.85-1.17 [employer] JDTFLJL3584-85-59 06:44:00 Test Item Value Reference Range Interpretation Comments Antibody Scrn (test Negative (02/13/16 1:44 code = Antibody Scrn) AM) [employer] [id number] 06:44:00 Test Item Value Reference Range Interpretation Comments ABO/Rh (test code = ABO/Rh) A POS [email or web address] 06:44:00 Test Item Value Reference Range Interpretation Comments CK MB Index (test 1.6 See_Comment [Automate d message] The code = CK MB Index) system w [facility] generated this result transmit gaye reference range : <=2.5. The reference range was not used to interpr et this result as satish l/abnormal. [email or web address] 06:44:00 Test Item Value Reference Range Interpretation Comments CK MB (test code = CK MB) 0.9 0.5-3.6 [email or web address] 06:44:00 Test Item Value Reference Range Interpretation Comments Total CK (test code = Total CK) 57 12-191 [facility] [employer]2016-07-03 06:44:00 Test Item Value Reference Range Interpretation Comments Troponin-I (test code no gt See_Comment [Auto mated message] The = Troponin-I) system which g enerated this result transmit gaye reference range : <=0.40. The reference r ozzy was not used to interpr et this result as satish l/abnormal. [facility]2016-07-03 06:44:00 Test Item Value Reference Range Interpretation Comments Albumin Lvl (test code = Albumin Lvl) 3.5 3.5-5.0 [facility]2016-07-03 06:44:00 Test Item Value Reference Range Interpretation Comments Total Protein (test code = Total 7.0 6.4-8.4 Protein) [facility] CenterGreenWave RealityATRIUM HEALTH PROVIDENCEJXOQU2578-99-29 06:44:00 Test Item Value Reference Range Interpretation Comments ALT (test code = ALT) 19 See_Comment [Auto mated message] The system which ge nerated this result transmit gaye reference range : <=65. The reference range was not used to interpr et this result as satish l/abnormal. [facility] CenterCARDFREE QNGTX9417-33-84 06:44:00 Test Item Value Reference Range Interpretation Comments AST (test code = AST) 10 See_Comment [Auto mated message] The system which ge nerated this result transmit gaye reference range : <=37. The reference range was not used to interpr et this result as satish l/abnormal. [facility] CenterCARDFREE QMIQN6151-87-98 06:44:00 Test Item Value Reference Range Interpretation Comments Alk Phos (test code = Alk Phos) 79 39-136 [facility] CenterCARDFREE GUWDX9753-86-94 06:44:00 Test Item Value Reference Range Interpretation Comments Bili Total (test code = Bili Total) 0.4 0.2-1.3 [facility]berg[facility] TIWPQ8503-06-22 06:44:00 Test Item Value Reference Range Interpretation Comments Bili Direct (test code 0.1 See_Comment [Aut omated message] The = Bili Direct) system which generated this result tra nsmitted reference range : <=0.3. The reference r ozzy was not used to int erpret this result as satish l/abnormal. [facility] CenterCARDFREE [id number] 06:44:00 Test Item Value Reference Range Interpretation Comments Globulin (test code = Globulin) 3.5 2.0-4.0 [facility]2016-07-03 06:44:00 Test Item Value Reference Range Interpretation Comments A/G Ratio (test code = A/G Ratio) 1.0 0.7-1.6 [facility]2016-07-03 06:44:00 Test Item Value Reference Range Interpretation Comments Bili Indirect (test 0.3 See_Comment [Automa gaye message] The code = Bili Indirect) system which generated this result tra nsmitted reference range : <=1.0. The reference r ozzy was not used to int erpret this result as normal/abnormal . [facility]2016-07-03 06:44:00 Test Item Value Reference Range Interpretation Comments eGFR (test code = eGFR) 107 [facility]2016-07-03 06:44:00 Test Item Value Reference Range Interpretation Comments BUN (test code = BUN) 8 7-22 [place] 358136-07-03 06:44:00 Test Item Value Reference Range Interpretation Comments Glucose Lvl (test code = Glucose Lvl) 91 70-99 [facility]2016-07-03 06:44:00 Test Item Value Reference Range Interpretation Comments Sodium Lvl (test code = Sodium Lvl) 138 135-145 [facility]2016-07-03 06:44:00 Test Item Value Reference Range Interpretation Comments Creatinine Lvl (test code = Creatinine 0.70 0.50-1.40 Lvl) [place] 358136-07-03 06:44:00 Test Item Value Reference Range Interpretation Comments Potassium Lvl (test code = Potassium 3.3 3.5-5.1 Lvl) [facility]2016-07-03 06:44:00 Test Item Value Reference Range Interpretation Comments CO2 (test code = CO2) 25 24-32 [facility]2016-07-03 06:44:00 Test Item Value Reference Range Interpretation Comments Chloride Lvl (test code = Chloride Lvl) 106 95-109 [facility]2016-07-03 06:44:00 Test Item Value Reference Range Interpretation Comments Calcium Lvl (test code = Calcium Lvl) 8.1 8.5-10.5 [place] 358136-07-03 06:44:00 Test Item Value Reference Range Interpretation Comments AGAP (test code = AGAP) 10.3 10.0-20.0 [facility]2016-07-03 06:44:00 Test Item Value Reference Range Interpretation Comments Magnesium Lvl (test code = Magnesium 2.2 1.8-2.4 Lvl) [place] 97878016-07-03 06:44:00 Test Item Value Reference Range Interpretation Comments S Preg (test code = S Negative *NA*(02/13/16 Preg) 1:44 AM) [facility] HospitalBhktuynXRLVZXQISM7233-68-15 06:44:00 Test Item Value Reference Range Interpretation Comments Basophils (test code = 0.1 See_Comment [Aut omated message] The Basophils) system which ge nerated this result tra nsmitted reference range : <=1.0. The reference r ozzy was not used to int erpret this result as normal/abnormal . [facility] HospitalTexcsyjMTRQYUCVWQ8221-39-87 06:44:00 Test Item Value Reference Range Interpretation Comments Monocytes # (test code 0.3 See_Comment [Aut omated message] The = Monocytes #) system which generated this result tra nsmitted reference range : <=0.8. The reference r ozzy was not used to int erpret this result as normal/abnormal . [facility] HospitalYssvxvgZAUKFUQMRO5559-60-58 06:44:00 Test Item Value Reference Range Interpretation Comments Eosinophils # (test code 0.1 See_Comment [A utomated message] The = Eosinophils #) system whic h generated this result tra nsmitted reference range : <=0.5. The reference r ozzy was not used to int erpret this result as normal/abnormal . [facility] HospitalUjvuxzwJLDMNWKAPJ3492-34-60 06:44:00 Test Item Value Reference Range Interpretation Comments Segs-Bands # (test code = Segs-Bands #) 9.3 1.5-8.1 [facility] HospitalHfxlkuvISNUYKGNOF3857-72-72 06:44:00 Test Item Value Reference Range Interpretation Comments Lymphocytes # (test code = Lymphocytes 2.6 1.0-5.5 #) [facility] HospitalQhqwayiFNFJXKUHNU5565-23-77 06:44:00 Test Item Value Reference Range Interpretation Comments Basophils # (test code 0.0 See_Comment [Aut omated message] The = Basophils #) system which generated this result tra nsmitted reference range : <=0.2. The reference r ozzy was not used to int erpret this result as normal/abnormal . [facility] HospitalFldclvkOJALRLVKAC8756-23-47 06:44:00 Test Item Value Reference Range Interpretation Comments Microcyte (test code = 1+ *ABN*(02/13/16 1:44 Microcyte) AM) [facility] HospitalLiwdqqbATVYFVRRKJ5824-89-95 06:44:00 Test Item Value Reference Range Interpretation Comments Giant Plt (test code Moderate *ABN*(02/13/16 = Giant Plt) 1:44 AM) [facility] HospitalOkfriwuITGLUOXZVN9971-68-08 06:44:00 Test Item Value Reference Range Interpretation Comments Segs (test code = Segs) 75.2 45.0-75.0 [facility] HospitalDnaekmcDFWSTAWTCV4437-97-58 06:44:00 Test Item Value Reference Range Interpretation Comments Hypochrom (test code = 1+ (02/13/16 1:44 AM) Hypochrom) [facility] HospitalVwkrfjgFCHISRLGFV9975-44-30 06:44:00 Test Item Value Reference Range Interpretation Comments Eosinophils (test code = 0.7 See_Comment [A utomated message] The Eosinophils) system which ge nerated this result tra nsmitted reference range : <=4.0. The reference r ozzy was not used to int erpret this result as normal/abnormal . [facility] HospitalOzbpziaKEDKBZRJEA7480-11-27 06:44:00 Test Item Value Reference Range Interpretation Comments Lymphocytes (test code = Lymphocytes) 21.3 20.0-40.0 [facility] HospitalTyzwrnfPXCYONASYN0332-12-52 06:44:00 Test Item Value Reference Range Interpretation Comments Monocytes (test code = Monocytes) 2.7 2.0-12.0 [facility] HospitalLhzqkbkUFTEPAWHDH3677-94-55 06:44:00 Test Item Value Reference Range Interpretation Comments MPV (test code = MPV) 9.5 7.4-10.4 [facility] HospitalRhajrfyLXBIYLBGKO1006-82-07 06:44:00 Test Item Value Reference Range Interpretation Comments RDW (test code = RDW) 17.8 11.5-14.5 [facility] HospitalHrmcnyvVBXSRTCWDG2520-23-75 06:44:00 Test Item Value Reference Range Interpretation Comments MCV (test code = MCV) 73.2 80.0-98.0 [facility] HospitalNhsfufbALLZFSEATK3476-88-61 06:44:00 Test Item Value Reference Range Interpretation Comments MCH (test code = MCH) 21.9 pg 27.0-31.0 [facility]IoxgdawWMRNEJHNXV4111-66-48 06:44:00 Test Item Value Reference Range Interpretation Comments Hct (test code = Hct) 27.2 36.0-48.0 [facility] HospitalZzywaizVVLCJSWFTB8205-12-77 06:44:00 Test Item Value Reference Range Interpretation Comments MCHC (test code = MCHC) 29.9 32.0-36.0 [facility] HospitalZdeksyvADSTYFPORA1188-58-54 06:44:00 Test Item Value Reference Range Interpretation Comments Platelet (test code = Platelet) 400 133-450 [facility] HospitalKqmunyiLSTMJXZYZU4036-68-92 06:44:00 Test Item Value Reference Range Interpretation Comments WBC (test code = WBC) 12.4 3.7-10.4 [facility] HospitalHnnpzwfFPBVIGHCZW4083-22-37 06:44:00 Test Item Value Reference Range Interpretation Comments RBC (test code = RBC) 3.72 4.20-5.40 [facility]bergIanraupEXRFABQFLN4748-50-63 06:44:00 Test Item Value Reference Range Interpretation Comments Hgb (test code = Hgb) 8.1 12.0-16.0 [facility] KlebergXaczjceLNSYFXVOXU0414-26-43 06:44:00 Test Item Value Reference Range Interpretation Comments PTT (test code = PTT) 27.2 s 22.9-35.8 [facility] KlebergLdyuyqdSTSBWPTBSS8960-32-68 06:44:00 Test Item Value Reference Range Interpretation Comments PT (test code = PT) 14.7 s 12.0-14.7 [facility] KlebergZhnhstvOIDBVLOTJZ4484-55-25 06:44:00 Test Item Value Reference Range Interpretation Comments INR (test code = INR) 1.12 0.85-1.17 [facility] [employer] [id number] 06:44:00 Test Item Value Reference Range Interpretation Comments Antibody Scrn (test Negative (02/13/16 1:44 code = Antibody Scrn) AM) [facility] CenterGeoIQ OTJOPMJ9076-64-17 06:44:00 Test Item Value Reference Range Interpretation Comments ABO/Rh (test code = ABO/Rh) A POS [facility] CenterannCARDIAC OJQBMDF7680-65-29 06:44:00 Test Item Value Reference Range Interpretation Comments CK MB Index (test 1.6 See_Comment [Automate d message] The code = CK MB Index) system w [facility] generated this result transmit gaye reference range : <=2.5. The reference range was not used to interpr et this result as satish l/abnormal. [facility] [employer] QTLGDLJ8918-59-14 06:44:00 Test Item Value Reference Range Interpretation Comments CK MB (test code = CK MB) 0.9 0.5-3.6 [facility] [employer] TVGPQHP0696-66-08 06:44:00 Test Item Value Reference Range Interpretation Comments Total CK (test code = Total CK) 57 12-191 [facility] [employer] [id number] 06:44:00 Test Item Value Reference Range Interpretation Comments Troponin-I (test code no gt See_Comment [Auto mated message] The = Troponin-I) system which g enerated this result transmit gaye reference range : <=0.40. The reference r ozzy was not used to interpr et this result as satish l/abnormal. [employer] [id number] 06:44:00 Test Item Value Reference Range Interpretation Comments Albumin Lvl (test code = Albumin Lvl) 3.5 3.5-5.0 [facility] [employer] [id number] 06:44:00 Test Item Value Reference Range Interpretation Comments Total Protein (test code = Total 7.0 6.4-8.4 Protein) [facility] [employer] [id number] 06:44:00 Test Item Value Reference Range Interpretation Comments ALT (test code = ALT) 19 See_Comment [Auto mated message] The system which ge nerated this result transmit gaye reference range : <=65. The reference range was not used to interpr et this result as satish l/abnormal. [employer] [id number] 06:44:00 Test Item Value Reference Range Interpretation Comments AST (test code = AST) 10 See_Comment [Auto mated message] The system which ge nerated this result transmit gaye reference range : <=37. The reference range was not used to interpr et this result as satish l/abnormal. [employer] [id number] 06:44:00 Test Item Value Reference Range Interpretation Comments Alk Phos (test code = Alk Phos) 79 39-136 [facility]2016-07-03 06:44:00 Test Item Value Reference Range Interpretation Comments Bili Total (test code = Bili Total) 0.4 0.2-1.3 [facility]2016-07-03 06:44:00 Test Item Value Reference Range Interpretation Comments Bili Direct (test code 0.1 See_Comment [Aut omated message] The = Bili Direct) system which generated this result tra nsmitted reference range : <=0.3. The reference r ozzy was not used to int erpret this result as satish l/abnormal. [facility]2016-07-03 06:44:00 Test Item Value Reference Range Interpretation Comments Globulin (test code = Globulin) 3.5 2.0-4.0 [facility]2016-07-03 06:44:00 Test Item Value Reference Range Interpretation Comments A/G Ratio (test code = A/G Ratio) 1.0 0.7-1.6 [place] 358136-07-03 06:44:00 Test Item Value Reference Range Interpretation Comments Bili Indirect (test 0.3 See_Comment [Automa gaye message] The code = Bili Indirect) system which generated this result tra nsmitted reference range : <=1.0. The reference r ozzy was not used to int erpret this result as normal/abnormal . [facility]2016-07-03 06:44:00 Test Item Value Reference Range Interpretation Comments eGFR (test code = eGFR) 107 [facility]2016-07-03 06:44:00 Test Item Value Reference Range Interpretation Comments BUN (test code = BUN) 8 7-22 [place] 358136-07-03 06:44:00 Test Item Value Reference Range Interpretation Comments Glucose Lvl (test code = Glucose Lvl) 91 70-99 [facility]2016-07-03 06:44:00 Test Item Value Reference Range Interpretation Comments Sodium Lvl (test code = Sodium Lvl) 138 135-145 [place] 358136-07-03 06:44:00 Test Item Value Reference Range Interpretation Comments Creatinine Lvl (test code = Creatinine 0.70 0.50-1.40 Lvl) [facility]2016-07-03 06:44:00 Test Item Value Reference Range Interpretation Comments Potassium Lvl (test code = Potassium 3.3 3.5-5.1 Lvl) [facility]2016-07-03 06:44:00 Test Item Value Reference Range Interpretation Comments CO2 (test code = CO2) 25 24-32 [facility]2016-07-03 06:44:00 Test Item Value Reference Range Interpretation Comments Chloride Lvl (test code = Chloride Lvl) 106 95-109 [facility]2016-07-03 06:44:00 Test Item Value Reference Range Interpretation Comments Calcium Lvl (test code = Calcium Lvl) 8.1 8.5-10.5 [facility]2016-07-03 06:44:00 Test Item Value Reference Range Interpretation Comments AGAP (test code = AGAP) 10.3 10.0-20.0 [facility]2016-07-03 06:44:00 Test Item Value Reference Range Interpretation Comments Magnesium Lvl (test code = Magnesium 2.2 1.8-2.4 Lvl) [facility]ld[facility]GNNTUNXTQCLVX2890-96-79 06:44:00 Test Item Value Reference Range Interpretation Comments S Preg (test code = S Negative *NA*(02/13/16 Preg) 1:44 AM) [facility] HospitalBrwokvsPHDOQAEWQH6601-93-99 06:44:00 Test Item Value Reference Range Interpretation Comments Basophils (test code = 0.1 See_Comment [Aut omated message] The Basophils) system which ge nerated this result tra nsmitted reference range : <=1.0. The reference r ozzy was not used to int erpret this result as normal/abnormal . [facility] HospitalFemvemlAREIXVDWWH7609-84-63 06:44:00 Test Item Value Reference Range Interpretation Comments Monocytes # (test code 0.3 See_Comment [Aut omated message] The = Monocytes #) system which generated this result tra nsmitted reference range : <=0.8. The reference r ozzy was not used to int erpret this result as normal/abnormal . [facility]YxrcxmpXMXQQHMHYU8028-99-16 06:44:00 Test Item Value Reference Range Interpretation Comments Eosinophils # (test code 0.1 See_Comment [A utomated message] The = Eosinophils #) system whic h generated this result tra nsmitted reference range : <=0.5. The reference r ozzy was not used to int erpret this result as normal/abnormal . [facility] HospitalUwocqcrRYJLXRNTWP8305-99-80 06:44:00 Test Item Value Reference Range Interpretation Comments Segs-Bands # (test code = Segs-Bands #) 9.3 1.5-8.1 [facility] HospitalWehhjecFBZTXFTELU8165-17-53 06:44:00 Test Item Value Reference Range Interpretation Comments Lymphocytes # (test code = Lymphocytes 2.6 1.0-5.5 #) [facility] HospitalIlulbpgQLUEFYRTQB7921-13-13 06:44:00 Test Item Value Reference Range Interpretation Comments Basophils # (test code 0.0 See_Comment [Aut omated message] The = Basophils #) system which generated this result tra nsmitted reference range : <=0.2. The reference r ozzy was not used to int erpret this result as normal/abnormal . [facility] HospitalWwyavegHGUCXZZWIQ7537-69-50 06:44:00 Test Item Value Reference Range Interpretation Comments Microcyte (test code = 1+ *ABN*(02/13/16 1:44 Microcyte) AM) [facility] HospitalAdacbglIOAULVXTFQ8913-99-15 06:44:00 Test Item Value Reference Range Interpretation Comments Giant Plt (test code Moderate *ABN*(02/13/16 = Giant Plt) 1:44 AM) [facility] HospitalYprsolzSUDJNQUABB4431-13-93 06:44:00 Test Item Value Reference Range Interpretation Comments Segs (test code = Segs) 75.2 45.0-75.0 [facility] HospitalPosaatpUXMBAYJUFE8361-26-11 06:44:00 Test Item Value Reference Range Interpretation Comments Hypochrom (test code = 1+ (02/13/16 1:44 AM) Hypochrom) [facility] HospitalArzdhmeLNGREAOFJS8644-46-11 06:44:00 Test Item Value Reference Range Interpretation Comments Eosinophils (test code = 0.7 See_Comment [A utomated message] The Eosinophils) system which ge nerated this result tra nsmitted reference range : <=4.0. The reference r ozzy was not used to int erpret this result as normal/abnormal . [facility] HospitalClnfdcsSCDQMADWQZ2710-34-17 06:44:00 Test Item Value Reference Range Interpretation Comments Lymphocytes (test code = Lymphocytes) 21.3 20.0-40.0 [facility] HospitalCgdrsfrVEDCHFWLCO3207-69-41 06:44:00 Test Item Value Reference Range Interpretation Comments Monocytes (test code = Monocytes) 2.7 2.0-12.0 [facility] HospitalUzrdtbwVHFLTJVVHL8412-06-22 06:44:00 Test Item Value Reference Range Interpretation Comments MPV (test code = MPV) 9.5 7.4-10.4 [facility] HospitalNebzpqhSLGSYDMJAI8250-57-68 06:44:00 Test Item Value Reference Range Interpretation Comments RDW (test code = RDW) 17.8 11.5-14.5 [facility] HospitalHawonxhXTVIODKZQK7732-28-82 06:44:00 Test Item Value Reference Range Interpretation Comments MCV (test code = MCV) 73.2 80.0-98.0 [facility] HospitalGuwltcdWBPJTEDHVW7369-67-77 06:44:00 Test Item Value Reference Range Interpretation Comments MCH (test code = MCH) 21.9 pg 27.0-31.0 [facility] HospitalHxmizppNQSCLBTWHX6585-82-21 06:44:00 Test Item Value Reference Range Interpretation Comments Hct (test code = Hct) 27.2 36.0-48.0 [facility] HospitalKfvwlseINUJRDTCOM8853-32-32 06:44:00 Test Item Value Reference Range Interpretation Comments MCHC (test code = MCHC) 29.9 32.0-36.0 [facility] HospitalOgcinjtQCGMHXGEOB2202-34-70 06:44:00 Test Item Value Reference Range Interpretation Comments Platelet (test code = Platelet) 400 133-450 [facility] HospitalPguqgvhAECANIDIEY4426-14-53 06:44:00 Test Item Value Reference Range Interpretation Comments WBC (test code = WBC) 12.4 3.7-10.4 [facility] HospitalUgngbegKUDGGRFSKE6599-12-56 06:44:00 Test Item Value Reference Range Interpretation Comments RBC (test code = RBC) 3.72 4.20-5.40 [facility] HospitalOirzlxlXDMEYOOEPN0356-11-06 06:44:00 Test Item Value Reference Range Interpretation Comments Hgb (test code = Hgb) 8.1 12.0-16.0 [facility] HospitalNxnsaxoQTZSUBREGD8652-21-23 06:44:00 Test Item Value Reference Range Interpretation Comments PTT (test code = PTT) 27.2 s 22.9-35.8 [facility] HospitalLfmmimgLFDOTZUQFW2785-60-08 06:44:00 Test Item Value Reference Range Interpretation Comments PT (test code = PT) 14.7 s 12.0-14.7 [facility] JldsvivXGTMNGDCCD8310-07-19 06:44:00 Test Item Value Reference Range Interpretation Comments INR (test code = INR) 1.12 0.85-1.17 [facility] [employer] KLXUWDW7907-14-14 06:44:00 Test Item Value Reference Range Interpretation Comments Antibody Scrn (test Negative (02/13/16 1:44 code = Antibody Scrn) AM) [facility] WLIJJLH7050-22-28 06:44:00 Test Item Value Reference Range Interpretation Comments ABO/Rh (test code = ABO/Rh) A POS [email or web address] 06:44:00 Test Item Value Reference Range Interpretation Comments CK MB Index (test 1.6 See_Comment [Automate d message] The code = CK MB Index) system w [facility] generated this result transmit gaye reference range : <=2.5. The reference range was not used to interpr et this result as satish l/abnormal. [email or web address] 06:44:00 Test Item Value Reference Range Interpretation Comments CK MB (test code = CK MB) 0.9 0.5-3.6 [email or web address] 06:44:00 Test Item Value Reference Range Interpretation Comments Total CK (test code = Total CK) 57 12-191 [facility] [employer]2016-07-03 06:44:00 Test Item Value Reference Range Interpretation Comments Troponin-I (test code no gt See_Comment [Auto mated message] The = Troponin-I) system which g enerated this result transmit gaye reference range : <=0.40. The reference r ozzy was not used to interpr et this result as satish l/abnormal. [employer]2016-07-03 06:44:00 Test Item Value Reference Range Interpretation Comments Albumin Lvl (test code = Albumin Lvl) 3.5 3.5-5.0 [employer]2016-07-03 06:44:00 Test Item Value Reference Range Interpretation Comments Total Protein (test code = Total 7.0 6.4-8.4 Protein) [place] 358136-07-03 06:44:00 Test Item Value Reference Range Interpretation Comments ALT (test code = ALT) 19 See_Comment [Auto mated message] The system which ge nerated this result transmit gaye reference range : <=65. The reference range was not used to interpr et this result as satish l/abnormal. [facility]2016-07-03 06:44:00 Test Item Value Reference Range Interpretation Comments AST (test code = AST) 10 See_Comment [Auto mated message] The system which ge nerated this result transmit gaye reference range : <=37. The reference range was not used to interpr et this result as satish l/abnormal. [facility] OYLMB4176-91-91 06:44:00 Test Item Value Reference Range Interpretation Comments Alk Phos (test code = Alk Phos) 79 39-136 [place] 358136-07-03 06:44:00 Test Item Value Reference Range Interpretation Comments Bili Total (test code = Bili Total) 0.4 0.2-1.3 [place] 358136-07-03 06:44:00 Test Item Value Reference Range Interpretation Comments Bili Direct (test code 0.1 See_Comment [Aut omated message] The = Bili Direct) system which generated this result tra nsmitted reference range : <=0.3. The reference r ozzy was not used to int erpret this result as satish l/abnormal. [place] 358136-07-03 06:44:00 Test Item Value Reference Range Interpretation Comments Globulin (test code = Globulin) 3.5 2.0-4.0 [facility] IKJFM8203-34-78 06:44:00 Test Item Value Reference Range Interpretation Comments A/G Ratio (test code = A/G Ratio) 1.0 0.7-1.6 [facility] FZRWL8453-91-08 06:44:00 Test Item Value Reference Range Interpretation Comments Bili Indirect (test 0.3 See_Comment [Automa gaye message] The code = Bili Indirect) system which generated this result tra nsmitted reference range : <=1.0. The reference r ozzy was not used to int erpret this result as normal/abnormal . [facility]ARD[facility] [id number] 06:44:00 Test Item Value Reference Range Interpretation Comments eGFR (test code = eGFR) 107 [facility]2016-07-03 06:44:00 Test Item Value Reference Range Interpretation Comments BUN (test code = BUN) 8 7-22 [facility]2016-07-03 06:44:00 Test Item Value Reference Range Interpretation Comments Glucose Lvl (test code = Glucose Lvl) 91 70-99 [facility]2016-07-03 06:44:00 Test Item Value Reference Range Interpretation Comments Sodium Lvl (test code = Sodium Lvl) 138 135-145 [facility]2016-07-03 06:44:00 Test Item Value Reference Range Interpretation Comments Creatinine Lvl (test code = Creatinine 0.70 0.50-1.40 Lvl) [facility]2016-07-03 06:44:00 Test Item Value Reference Range Interpretation Comments Potassium Lvl (test code = Potassium 3.3 3.5-5.1 Lvl) [facility]2016-07-03 06:44:00 Test Item Value Reference Range Interpretation Comments CO2 (test code = CO2) 25 24-32 [facility]2016-07-03 06:44:00 Test Item Value Reference Range Interpretation Comments Chloride Lvl (test code = Chloride Lvl) 106 95-109 [facility]2016-07-03 06:44:00 Test Item Value Reference Range Interpretation Comments Calcium Lvl (test code = Calcium Lvl) 8.1 8.5-10.5 [facility]2016-07-03 06:44:00 Test Item Value Reference Range Interpretation Comments AGAP (test code = AGAP) 10.3 10.0-20.0 [facility]2016-07-03 06:44:00 Test Item Value Reference Range Interpretation Comments Magnesium Lvl (test code = Magnesium 2.2 1.8-2.4 Lvl) [facility]qgpswxLPSMAQNBXHSMY0566-79-10 06:44:00 Test Item Value Reference Range Interpretation Comments S Preg (test code = S Negative *NA*(02/13/16 Preg) 1:44 AM) [facility]TTPMEAIAUY1364-79-05 06:44:00 Test Item Value Reference Range Interpretation Comments Basophils (test code = 0.1 See_Comment [Aut omated message] The Basophils) system which ge nerated this result tra nsmitted reference range : <=1.0. The reference r ozzy was not used to int erpret this result as normal/abnormal . [facility] HospitalWhwxbucIYUZLUMRKN2570-58-11 06:44:00 Test Item Value Reference Range Interpretation Comments Monocytes # (test code 0.3 See_Comment [Aut omated message] The = Monocytes #) system which generated this result tra nsmitted reference range : <=0.8. The reference r ozzy was not used to int erpret this result as normal/abnormal . [facility] HospitalPpafippIHOOQTDKUO8997-28-76 06:44:00 Test Item Value Reference Range Interpretation Comments Eosinophils # (test code 0.1 See_Comment [A utomated message] The = Eosinophils #) system whic h generated this result tra nsmitted reference range : <=0.5. The reference r ozzy was not used to int erpret this result as normal/abnormal . [facility] HospitalHojszeoRZEAHXYHJN9308-70-64 06:44:00 Test Item Value Reference Range Interpretation Comments Segs-Bands # (test code = Segs-Bands #) 9.3 1.5-8.1 [facility] HospitalHrpvalbHPRWXZRIKZ0417-41-75 06:44:00 Test Item Value Reference Range Interpretation Comments Lymphocytes # (test code = Lymphocytes 2.6 1.0-5.5 #) [facility] HospitalKswjktsDRBNLSPPQP6323-15-58 06:44:00 Test Item Value Reference Range Interpretation Comments Basophils # (test code 0.0 See_Comment [Aut omated message] The = Basophils #) system which generated this result tra nsmitted reference range : <=0.2. The reference r ozzy was not used to int erpret this result as normal/abnormal . [facility] HospitalTwjrmgsXWCECXMYGX5035-88-83 06:44:00 Test Item Value Reference Range Interpretation Comments Microcyte (test code = 1+ *ABN*(02/13/16 1:44 Microcyte) AM) [facility] HospitalLphlnnpYJLDAOVOPY3463-92-06 06:44:00 Test Item Value Reference Range Interpretation Comments Giant Plt (test code Moderate *ABN*(02/13/16 = Giant Plt) 1:44 AM) [facility] HospitalWgzvgsbPBFDNFYYEN9701-53-92 06:44:00 Test Item Value Reference Range Interpretation Comments Segs (test code = Segs) 75.2 45.0-75.0 [facility] HospitalSatleooOIGEKXSFIT7152-06-43 06:44:00 Test Item Value Reference Range Interpretation Comments Hypochrom (test code = 1+ (02/13/16 1:44 AM) Hypochrom) [facility] HospitalPbvkjseQPOTGKZAUY4225-51-11 06:44:00 Test Item Value Reference Range Interpretation Comments Eosinophils (test code = 0.7 See_Comment [A utomated message] The Eosinophils) system which ge nerated this result tra nsmitted reference range : <=4.0. The reference r ozzy was not used to int erpret this result as normal/abnormal . [facility] HospitalFqfqnlzQWKHOEZJEY6725-35-78 06:44:00 Test Item Value Reference Range Interpretation Comments Lymphocytes (test code = Lymphocytes) 21.3 20.0-40.0 [facility] HospitalQaggqlsQXKKWNNYZC5613-60-22 06:44:00 Test Item Value Reference Range Interpretation Comments Monocytes (test code = Monocytes) 2.7 2.0-12.0 [facility] HospitalFppidbmWHCVDGDBWP4150-96-42 06:44:00 Test Item Value Reference Range Interpretation Comments MPV (test code = MPV) 9.5 7.4-10.4 [facility] HospitalEwnjxitPRYFZFYSSU1357-19-82 06:44:00 Test Item Value Reference Range Interpretation Comments RDW (test code = RDW) 17.8 11.5-14.5 [facility] HospitalSfxlabjLAROPZVMSG7471-49-45 06:44:00 Test Item Value Reference Range Interpretation Comments MCV (test code = MCV) 73.2 80.0-98.0 [facility] HospitalQywmuvoTPUZPUWRMR7120-76-77 06:44:00 Test Item Value Reference Range Interpretation Comments MCH (test code = MCH) 21.9 pg 27.0-31.0 [facility] HospitalFmvxeukNGUZVTGNKL8491-27-66 06:44:00 Test Item Value Reference Range Interpretation Comments Hct (test code = Hct) 27.2 36.0-48.0 [facility] HospitalXwchywpNPYIYZBMRM8432-41-64 06:44:00 Test Item Value Reference Range Interpretation Comments MCHC (test code = MCHC) 29.9 32.0-36.0 [facility] HospitalZozybctFQTJZYBHQT7017-42-06 06:44:00 Test Item Value Reference Range Interpretation Comments Platelet (test code = Platelet) 400 133-450 [facility] CenterQzhxdoyBAUFOGGEUY2945-46-99 06:44:00 Test Item Value Reference Range Interpretation Comments WBC (test code = WBC) 12.4 3.7-10.4 [facility] HkmwksyCRDEXENBWT9683-45-32 06:44:00 Test Item Value Reference Range Interpretation Comments RBC (test code = RBC) 3.72 4.20-5.40 [facility] LijjggnLOEDTTIGKV0187-47-86 06:44:00 Test Item Value Reference Range Interpretation Comments Hgb (test code = Hgb) 8.1 12.0-16.0 [facility] EdfjgmzNEEKTGTKWL7446-22-97 06:44:00 Test Item Value Reference Range Interpretation Comments PTT (test code = PTT) 27.2 s 22.9-35.8 [facility] RderfshYMRHOSTSXR7774-67-06 06:44:00 Test Item Value Reference Range Interpretation Comments PT (test code = PT) 14.7 s 12.0-14.7 [facility] CenterMaheyanQZKKILNWRX9212-18-35 06:44:00 Test Item Value Reference Range Interpretation Comments INR (test code = INR) 1.12 0.85-1.17 [facility] [employer] WDSVLHT9873-54-68 06:44:00 Test Item Value Reference Range Interpretation Comments Antibody Scrn (test Negative (02/13/16 1:44 code = Antibody Scrn) AM) [facility] [employer] JTPLXFW7370-15-40 06:44:00 Test Item Value Reference Range Interpretation Comments ABO/Rh (test code = ABO/Rh) A POS [facility] [employer]2016-07-03 06:44:00 Test Item Value Reference Range Interpretation Comments CK MB Index (test 1.6 See_Comment [Automate d message] The code = CK MB Index) system w [facility] generated this result transmit agye reference range : <=2.5. The reference range was not used to interpr et this result as satish l/abnormal. [email or web address] 06:44:00 Test Item Value Reference Range Interpretation Comments CK MB (test code = CK MB) 0.9 0.5-3.6 [facility] [employer]2016-07-03 06:44:00 Test Item Value Reference Range Interpretation Comments Total CK (test code = Total CK) 57 12-191 [facility] RMORTYU2637-47-34 06:44:00 Test Item Value Reference Range Interpretation Comments Troponin-I (test code no gt See_Comment [Auto mated message] The = Troponin-I) system which g enerated this result transmit gaye reference range : <=0.40. The reference r ozzy was not used to interpr et this result as satish l/abnormal. [facility] [employer] WNJBD9136-46-62 06:44:00 Test Item Value Reference Range Interpretation Comments Albumin Lvl (test code = Albumin Lvl) 3.5 3.5-5.0 [facility] LOPCH6653-20-56 06:44:00 Test Item Value Reference Range Interpretation Comments Total Protein (test code = Total 7.0 6.4-8.4 Protein) [facility] BWGOX0565-98-52 06:44:00 Test Item Value Reference Range Interpretation Comments ALT (test code = ALT) 19 See_Comment [Auto mated message] The system which ge nerated this result transmit gaye reference range : <=65. The reference range was not used to interpr et this result as satish l/abnormal. [facility] TOYCD5022-65-31 06:44:00 Test Item Value Reference Range Interpretation Comments AST (test code = AST) 10 See_Comment [Auto mated message] The system which ge nerated this result transmit gaye reference range : <=37. The reference range was not used to interpr et this result as satish l/abnormal. [facility] [employer] HPOGB3361-95-00 06:44:00 Test Item Value Reference Range Interpretation Comments Alk Phos (test code = Alk Phos) 79 39-136 [facility] TGMMB5671-75-95 06:44:00 Test Item Value Reference Range Interpretation Comments Bili Total (test code = Bili Total) 0.4 0.2-1.3 [facility] [employer] [id number] 06:44:00 Test Item Value Reference Range Interpretation Comments Bili Direct (test code 0.1 See_Comment [Aut omated message] The = Bili Direct) system which generated this result tra nsmitted reference range : <=0.3. The reference r ozzy was not used to int erpret this result as satish l/abnormal. [place] 358136-07-03 06:44:00 Test Item Value Reference Range Interpretation Comments Globulin (test code = Globulin) 3.5 2.0-4.0 [facility]2016-07-03 06:44:00 Test Item Value Reference Range Interpretation Comments A/G Ratio (test code = A/G Ratio) 1.0 0.7-1.6 [place] 358136-07-03 06:44:00 Test Item Value Reference Range Interpretation Comments Bili Indirect (test 0.3 See_Comment [Automa gaye message] The code = Bili Indirect) system which generated this result tra nsmitted reference range : <=1.0. The reference r ozzy was not used to int erpret this result as normal/abnormal . [facility]2016-07-03 06:44:00 Test Item Value Reference Range Interpretation Comments eGFR (test code = eGFR) 107 [facility]2016-07-03 06:44:00 Test Item Value Reference Range Interpretation Comments BUN (test code = BUN) 8 7-22 [facility]2016-07-03 06:44:00 Test Item Value Reference Range Interpretation Comments Glucose Lvl (test code = Glucose Lvl) 91 70-99 [facility]2016-07-03 06:44:00 Test Item Value Reference Range Interpretation Comments Sodium Lvl (test code = Sodium Lvl) 138 135-145 [facility]2016-07-03 06:44:00 Test Item Value Reference Range Interpretation Comments Creatinine Lvl (test code = Creatinine 0.70 0.50-1.40 Lvl) [facility]2016-07-03 06:44:00 Test Item Value Reference Range Interpretation Comments Potassium Lvl (test code = Potassium 3.3 3.5-5.1 Lvl) [facility]2016-07-03 06:44:00 Test Item Value Reference Range Interpretation Comments CO2 (test code = CO2) 25 24-32 [facility]2016-07-03 06:44:00 Test Item Value Reference Range Interpretation Comments Chloride Lvl (test code = Chloride Lvl) 106 95-109 [place] 358136-07-03 06:44:00 Test Item Value Reference Range Interpretation Comments Calcium Lvl (test code = Calcium Lvl) 8.1 8.5-10.5 [facility]2016-07-03 06:44:00 Test Item Value Reference Range Interpretation Comments AGAP (test code = AGAP) 10.3 10.0-20.0 [facility]2016-07-03 06:44:00 Test Item Value Reference Range Interpretation Comments Magnesium Lvl (test code = Magnesium 2.2 1.8-2.4 Lvl) [facility]OaevjlhGSOHUWKQLVKVM4744-95-18 06:44:00 Test Item Value Reference Range Interpretation Comments S Preg (test code = S Negative *NA*(02/13/16 Preg) 1:44 AM) [facility] HospitalNqufdieEEWFXVRPOY0731-12-71 06:44:00 Test Item Value Reference Range Interpretation Comments Basophils (test code = 0.1 See_Comment [Aut omated message] The Basophils) system which ge nerated this result tra nsmitted reference range : <=1.0. The reference r ozzy was not used to int erpret this result as normal/abnormal . [facility] HospitalKwuefbfRQGGFHMJTS1015-48-68 06:44:00 Test Item Value Reference Range Interpretation Comments Monocytes # (test code 0.3 See_Comment [Aut omated message] The = Monocytes #) system which generated this result tra nsmitted reference range : <=0.8. The reference r ozzy was not used to int erpret this result as normal/abnormal . [facility] HospitalOzfsayeSLKABFYXRQ3496-83-53 06:44:00 Test Item Value Reference Range Interpretation Comments Eosinophils # (test code 0.1 See_Comment [A utomated message] The = Eosinophils #) system whic h generated this result tra nsmitted reference range : <=0.5. The reference r ozzy was not used to int erpret this result as normal/abnormal . [facility] HospitalBfxbzcsBNCGAXICKU1245-66-38 06:44:00 Test Item Value Reference Range Interpretation Comments Segs-Bands # (test code = Segs-Bands #) 9.3 1.5-8.1 [facility] HospitalJfnqrwqDIFAWSRJPC4757-50-92 06:44:00 Test Item Value Reference Range Interpretation Comments Lymphocytes # (test code = Lymphocytes 2.6 1.0-5.5 #) [facility] HospitalOibwdkbJFHAYFFULK3409-05-70 06:44:00 Test Item Value Reference Range Interpretation Comments Basophils # (test code 0.0 See_Comment [Aut omated message] The = Basophils #) system which generated this result tra nsmitted reference range : <=0.2. The reference r ozzy was not used to int erpret this result as normal/abnormal . [facility] HospitalJowtxwnBGBLNDYLVT8759-96-67 06:44:00 Test Item Value Reference Range Interpretation Comments Microcyte (test code = 1+ *ABN*(02/13/16 1:44 Microcyte) AM) [facility] HospitalXubjxkyZTKSOUPWMO3594-69-52 06:44:00 Test Item Value Reference Range Interpretation Comments Giant Plt (test code Moderate *ABN*(02/13/16 = Giant Plt) 1:44 AM) [facility] HospitalYxiswsiVCZGYJVNFB7797-35-30 06:44:00 Test Item Value Reference Range Interpretation Comments Segs (test code = Segs) 75.2 45.0-75.0 [facility] HospitalGqmdacpZZNLGOVLPD1764-46-36 06:44:00 Test Item Value Reference Range Interpretation Comments Hypochrom (test code = 1+ (02/13/16 1:44 AM) Hypochrom) [facility] HospitalXduvmgsOILQEEHNHH2734-74-69 06:44:00 Test Item Value Reference Range Interpretation Comments Eosinophils (test code = 0.7 See_Comment [A utomated message] The Eosinophils) system which ge nerated this result tra nsmitted reference range : <=4.0. The reference r ozzy was not used to int erpret this result as normal/abnormal . [facility] HospitalEuxmfdfFNNYOXGAAN8753-97-41 06:44:00 Test Item Value Reference Range Interpretation Comments Lymphocytes (test code = Lymphocytes) 21.3 20.0-40.0 [facility] HospitalFhncafmNHUWFBTMZP0953-48-76 06:44:00 Test Item Value Reference Range Interpretation Comments Monocytes (test code = Monocytes) 2.7 2.0-12.0 [facility] HospitalWezlksxYIGLXDOIUX7288-60-30 06:44:00 Test Item Value Reference Range Interpretation Comments MPV (test code = MPV) 9.5 7.4-10.4 [facility] HospitalUjfidrtPMLALIHTBQ8642-65-29 06:44:00 Test Item Value Reference Range Interpretation Comments RDW (test code = RDW) 17.8 11.5-14.5 [facility] HospitalUynfzebTSOKCPLFXW5125-18-90 06:44:00 Test Item Value Reference Range Interpretation Comments MCV (test code = MCV) 73.2 80.0-98.0 [facility] HospitalGjgtpbeLGRRCPZVYA6042-11-51 06:44:00 Test Item Value Reference Range Interpretation Comments MCH (test code = MCH) 21.9 pg 27.0-31.0 [facility] HospitalVmknlofFXXBCZYXKL7426-56-52 06:44:00 Test Item Value Reference Range Interpretation Comments Hct (test code = Hct) 27.2 36.0-48.0 [facility] HospitalHwltxmoBHKRDYDKCY2061-84-91 06:44:00 Test Item Value Reference Range Interpretation Comments MCHC (test code = MCHC) 29.9 32.0-36.0 [facility] HospitalOnescwqIBZIASMCCU8884-88-84 06:44:00 Test Item Value Reference Range Interpretation Comments Platelet (test code = Platelet) 400 133-450 [facility] HospitalWurdnmuAYAXASWLMF5734-44-90 06:44:00 Test Item Value Reference Range Interpretation Comments WBC (test code = WBC) 12.4 3.7-10.4 [facility] HospitalXxunpezKLQAZFYNKQ8877-75-30 06:44:00 Test Item Value Reference Range Interpretation Comments RBC (test code = RBC) 3.72 4.20-5.40 [facility] HospitalFulfoviFQDHAIVHJT4106-16-37 06:44:00 Test Item Value Reference Range Interpretation Comments Hgb (test code = Hgb) 8.1 12.0-16.0 [facility] HospitalRhmgjxlVRUZCBURBT8173-26-35 06:44:00 Test Item Value Reference Range Interpretation Comments PTT (test code = PTT) 27.2 s 22.9-35.8 [facility] HospitalFrkfravNHWJISPFVC1036-74-95 06:44:00 Test Item Value Reference Range Interpretation Comments PT (test code = PT) 14.7 s 12.0-14.7 [facility] HospitalTbngvrpBFIDJUTOBS3629-64-17 06:44:00 Test Item Value Reference Range Interpretation Comments INR (test code = INR) 1.12 0.85-1.17 [facility] [id number] 06:44:00 Test Item Value Reference Range Interpretation Comments Antibody Scrn (test Negative (02/13/16 1:44 code = Antibody Scrn) AM) [facility] [id number] 06:44:00 Test Item Value Reference Range Interpretation Comments ABO/Rh (test code = ABO/Rh) A [facility] [id number] 06:44:00 Test Item Value Reference Range Interpretation Comments CK MB Index (test 1.6 See_Comment [Automate d message] The code = CK MB Index) system w [facility] generated this result transmit gaye reference range : <=2.5. The reference range was not used to interpr et this result as satish l/abnormal. [facility] [employer] [id number] 06:44:00 Test Item Value Reference Range Interpretation Comments CK MB (test code = CK MB) 0.9 0.5-3.6 [facility] [employer] RZXUQYZ4434-43-67 06:44:00 Test Item Value Reference Range Interpretation Comments Total CK (test code = Total CK) 57 12-191 [facility] [employer] [id number] 06:44:00 Test Item Value Reference Range Interpretation Comments Troponin-I (test code no gt See_Comment [Auto mated message] The = Troponin-I) system which g enerated this result transmit gaye reference range : <=0.40. The reference r ozzy was not used to interpr et this result as satish l/abnormal. [employer] [id number] 06:44:00 Test Item Value Reference Range Interpretation Comments Albumin Lvl (test code = Albumin Lvl) 3.5 3.5-5.0 [facility] [employer] [id number] 06:44:00 Test Item Value Reference Range Interpretation Comments Total Protein (test code = Total 7.0 6.4-8.4 Protein) [facility] [employer] [id number] 06:44:00 Test Item Value Reference Range Interpretation Comments ALT (test code = ALT) 19 See_Comment [Auto mated message] The system which ge nerated this result transmit gaye reference range : <=65. The reference range was not used to interpr et this result as satish l/abnormal. [employer] [id number] 06:44:00 Test Item Value Reference Range Interpretation Comments AST (test code = AST) 10 See_Comment [Auto mated message] The system which ge nerated this result transmit gaye reference range : <=37. The reference range was not used to interpr et this result as satish l/abnormal. [facility]2016-07-03 06:44:00 Test Item Value Reference Range Interpretation Comments Alk Phos (test code = Alk Phos) 79 39-136 [facility]2016-07-03 06:44:00 Test Item Value Reference Range Interpretation Comments Bili Total (test code = Bili Total) 0.4 0.2-1.3 [place] 358136-07-03 06:44:00 Test Item Value Reference Range Interpretation Comments Bili Direct (test code 0.1 See_Comment [Aut omated message] The = Bili Direct) system which generated this result tra nsmitted reference range : <=0.3. The reference r ozzy was not used to int erpret this result as satish l/abnormal. [facility]2016-07-03 06:44:00 Test Item Value Reference Range Interpretation Comments Globulin (test code = Globulin) 3.5 2.0-4.0 [facility]2016-07-03 06:44:00 Test Item Value Reference Range Interpretation Comments A/G Ratio (test code = A/G Ratio) 1.0 0.7-1.6 [place] 358136-07-03 06:44:00 Test Item Value Reference Range Interpretation Comments Bili Indirect (test 0.3 See_Comment [Automa gaye message] The code = Bili Indirect) system which generated this result tra nsmitted reference range : <=1.0. The reference r ozzy was not used to int erpret this result as normal/abnormal . [facility]2016-07-03 06:44:00 Test Item Value Reference Range Interpretation Comments eGFR (test code = eGFR) 107 [place] 358136-07-03 06:44:00 Test Item Value Reference Range Interpretation Comments BUN (test code = BUN) 8 7-22 [facility]2016-07-03 06:44:00 Test Item Value Reference Range Interpretation Comments Glucose Lvl (test code = Glucose Lvl) 91 70-99 [facility]2016-07-03 06:44:00 Test Item Value Reference Range Interpretation Comments Sodium Lvl (test code = Sodium Lvl) 138 135-145 [place] 358136-07-03 06:44:00 Test Item Value Reference Range Interpretation Comments Creatinine Lvl (test code = Creatinine 0.70 0.50-1.40 Lvl) [facility]2016-07-03 06:44:00 Test Item Value Reference Range Interpretation Comments Potassium Lvl (test code = Potassium 3.3 3.5-5.1 Lvl) [facility]2016-07-03 06:44:00 Test Item Value Reference Range Interpretation Comments CO2 (test code = CO2) 25 24-32 [facility]2016-07-03 06:44:00 Test Item Value Reference Range Interpretation Comments Chloride Lvl (test code = Chloride Lvl) 106 95-109 [facility]2016-07-03 06:44:00 Test Item Value Reference Range Interpretation Comments Calcium Lvl (test code = Calcium Lvl) 8.1 8.5-10.5 [facility]2016-07-03 06:44:00 Test Item Value Reference Range Interpretation Comments AGAP (test code = AGAP) 10.3 10.0-20.0 [facility]2016-07-03 06:44:00 Test Item Value Reference Range Interpretation Comments Magnesium Lvl (test code = Magnesium 2.2 1.8-2.4 Lvl) [facility] CenterYhpbzioQBTKYOLXKDBSU8145-23-04 06:44:00 Test Item Value Reference Range Interpretation Comments S Preg (test code = S Negative *NA*(02/13/16 Preg) 1:44 AM) [facility] HospitalVowloelKDLOQCQUGL6470-39-28 06:44:00 Test Item Value Reference Range Interpretation Comments Basophils (test code = 0.1 See_Comment [Aut omated message] The Basophils) system which ge nerated this result tra nsmitted reference range : <=1.0. The reference r ozzy was not used to int erpret this result as normal/abnormal . [facility] HospitalVrtznztKDHJVXELRB8503-64-40 06:44:00 Test Item Value Reference Range Interpretation Comments Monocytes # (test code 0.3 See_Comment [Aut omated message] The = Monocytes #) system which generated this result tra nsmitted reference range : <=0.8. The reference r ozzy was not used to int erpret this result as normal/abnormal . [facility] HospitalJzfuhylOBRDUIWMDL4948-40-65 06:44:00 Test Item Value Reference Range Interpretation Comments Eosinophils # (test code 0.1 See_Comment [A utomated message] The = Eosinophils #) system whic h generated this result tra nsmitted reference range : <=0.5. The reference r ozzy was not used to int erpret this result as normal/abnormal . [facility] HospitalUbgsnbzBXTHSYDIOV8646-81-36 06:44:00 Test Item Value Reference Range Interpretation Comments Segs-Bands # (test code = Segs-Bands #) 9.3 1.5-8.1 [facility] HospitalCbvchksLBGWVKIBOD4810-74-14 06:44:00 Test Item Value Reference Range Interpretation Comments Lymphocytes # (test code = Lymphocytes 2.6 1.0-5.5 #) [facility] HospitalEwlmvwnGDMLALCXNN2714-86-59 06:44:00 Test Item Value Reference Range Interpretation Comments Basophils # (test code 0.0 See_Comment [Aut omated message] The = Basophils #) system which generated this result tra nsmitted reference range : <=0.2. The reference r ozzy was not used to int erpret this result as normal/abnormal . [facility] HospitalEvkicugHGPZCUOMAV3496-73-25 06:44:00 Test Item Value Reference Range Interpretation Comments Microcyte (test code = 1+ *ABN*(02/13/16 1:44 Microcyte) AM) [facility] HospitalKuxidlrENJNZUYOLC8649-58-19 06:44:00 Test Item Value Reference Range Interpretation Comments Giant Plt (test code Moderate *ABN*(02/13/16 = Giant Plt) 1:44 AM) [facility] HospitalYrcbstkNITJJCQWRQ5316-14-34 06:44:00 Test Item Value Reference Range Interpretation Comments Segs (test code = Segs) 75.2 45.0-75.0 [facility] HospitalBmnxirbEEXKASJYWS9459-40-94 06:44:00 Test Item Value Reference Range Interpretation Comments Hypochrom (test code = 1+ (02/13/16 1:44 AM) Hypochrom) [facility] HospitalRkvsylzJNNPINDFUZ1440-47-31 06:44:00 Test Item Value Reference Range Interpretation Comments Eosinophils (test code = 0.7 See_Comment [A utomated message] The Eosinophils) system which ge nerated this result tra nsmitted reference range : <=4.0. The reference r ozzy was not used to int erpret this result as normal/abnormal . [facility] HospitalJcwegbrKGGDRMWLXX4297-94-84 06:44:00 Test Item Value Reference Range Interpretation Comments Lymphocytes (test code = Lymphocytes) 21.3 20.0-40.0 [facility] HospitalShhheclLRHLUBBWKW7450-37-23 06:44:00 Test Item Value Reference Range Interpretation Comments Monocytes (test code = Monocytes) 2.7 2.0-12.0 [facility] HospitalCscfvdoMARPMDILQY7957-28-38 06:44:00 Test Item Value Reference Range Interpretation Comments MPV (test code = MPV) 9.5 7.4-10.4 [facility] HospitalZhlhgbeBYCFJZNMSF1786-09-53 06:44:00 Test Item Value Reference Range Interpretation Comments RDW (test code = RDW) 17.8 11.5-14.5 [facility] HospitalTeljmrbJJKLYTZZOI7453-28-75 06:44:00 Test Item Value Reference Range Interpretation Comments MCV (test code = MCV) 73.2 80.0-98.0 [facility] HospitalEavkfrvHOPUCXNUSP9505-95-18 06:44:00 Test Item Value Reference Range Interpretation Comments MCH (test code = MCH) 21.9 pg 27.0-31.0 [facility] HospitalAkvjretNRYYSZHEOY4265-51-06 06:44:00 Test Item Value Reference Range Interpretation Comments Hct (test code = Hct) 27.2 36.0-48.0 [facility] HospitalXpwuchbINLSDNLHYG4571-74-95 06:44:00 Test Item Value Reference Range Interpretation Comments MCHC (test code = MCHC) 29.9 32.0-36.0 [facility] HospitalIsvlpmeSPQJKSUAVW2689-72-85 06:44:00 Test Item Value Reference Range Interpretation Comments Platelet (test code = Platelet) 400 133-450 [facility] HospitalKylnlnzLRSXQOHKHP8426-50-89 06:44:00 Test Item Value Reference Range Interpretation Comments WBC (test code = WBC) 12.4 3.7-10.4 [facility] HospitalMmvxfbxRRBLWEJYRD6701-61-21 06:44:00 Test Item Value Reference Range Interpretation Comments RBC (test code = RBC) 3.72 4.20-5.40 [facility] HospitalBnrosxkJTMOXYKFAX8246-15-05 06:44:00 Test Item Value Reference Range Interpretation Comments Hgb (test code = Hgb) 8.1 12.0-16.0 [facility] HospitalCiqqoclJVGRQOWBWS6732-69-49 06:44:00 Test Item Value Reference Range Interpretation Comments PTT (test code = PTT) 27.2 s 22.9-35.8 [facility] FtezejyFDEEYOBOHU7650-28-91 06:44:00 Test Item Value Reference Range Interpretation Comments PT (test code = PT) 14.7 s 12.0-14.7 [facility] KjblgatKYVJNRNDTC2712-65-45 06:44:00 Test Item Value Reference Range Interpretation Comments INR (test code = INR) 1.12 0.85-1.17 [facility] [employer] VMRNHXF4054-32-74 06:44:00 Test Item Value Reference Range Interpretation Comments Antibody Scrn (test Negative (02/13/16 1:44 code = Antibody Scrn) AM) [facility] [employer] KDSRUIQ6576-61-49 06:44:00 Test Item Value Reference Range Interpretation Comments ABO/Rh (test code = ABO/Rh) A POS [facility] [employer]2016-07-03 06:44:00 Test Item Value Reference Range Interpretation Comments CK MB Index (test 1.6 See_Comment [Automate d message] The code = CK MB Index) system w [facility] generated this result transmit gaye reference range : <=2.5. The reference range was not used to interpr et this result as satish l/abnormal. [email or web address] 06:44:00 Test Item Value Reference Range Interpretation Comments CK MB (test code = CK MB) 0.9 0.5-3.6 [facility] [employer]2016-07-03 06:44:00 Test Item Value Reference Range Interpretation Comments Total CK (test code = Total CK) 57 12-191 [facility] [employer]2016-07-03 06:44:00 Test Item Value Reference Range Interpretation Comments Troponin-I (test code no gt See_Comment [Auto mated message] The = Troponin-I) system which g enerated this result transmit gaye reference range : <=0.40. The reference r ozzy was not used to interpr et this result as satish l/abnormal. [employer] [id number] 06:44:00 Test Item Value Reference Range Interpretation Comments Albumin Lvl (test code = Albumin Lvl) 3.5 3.5-5.0 [place] 358136-07-03 06:44:00 Test Item Value Reference Range Interpretation Comments Total Protein (test code = Total 7.0 6.4-8.4 Protein) [place] 358136-07-03 06:44:00 Test Item Value Reference Range Interpretation Comments ALT (test code = ALT) 19 See_Comment [Auto mated message] The system which ge nerated this result transmit gaye reference range : <=65. The reference range was not used to interpr et this result as satish l/abnormal. [facility]2016-07-03 06:44:00 Test Item Value Reference Range Interpretation Comments AST (test code = AST) 10 See_Comment [Auto mated message] The system which ge nerated this result transmit gaye reference range : <=37. The reference range was not used to interpr et this result as satish l/abnormal. [place] 358136-07-03 06:44:00 Test Item Value Reference Range Interpretation Comments Alk Phos (test code = Alk Phos) 79 39-136 [facility]2016-07-03 06:44:00 Test Item Value Reference Range Interpretation Comments Bili Total (test code = Bili Total) 0.4 0.2-1.3 [place] 358136-07-03 06:44:00 Test Item Value Reference Range Interpretation Comments Bili Direct (test code 0.1 See_Comment [Aut omated message] The = Bili Direct) system which generated this result tra nsmitted reference range : <=0.3. The reference r ozzy was not used to int erpret this result as satish l/abnormal. [facility]2016-07-03 06:44:00 Test Item Value Reference Range Interpretation Comments Globulin (test code = Globulin) 3.5 2.0-4.0 [place] 358136-07-03 06:44:00 Test Item Value Reference Range Interpretation Comments A/G Ratio (test code = A/G Ratio) 1.0 0.7-1.6 [place] 358136-07-03 06:44:00 Test Item Value Reference Range Interpretation Comments Bili Indirect (test 0.3 See_Comment [Automa gaye message] The code = Bili Indirect) system which generated this result tra nsmitted reference range : <=1.0. The reference r ozzy was not used to int erpret this result as normal/abnormal . [facility]2016-07-03 06:44:00 Test Item Value Reference Range Interpretation Comments eGFR (test code = eGFR) 107 [facility]2016-07-03 06:44:00 Test Item Value Reference Range Interpretation Comments BUN (test code = BUN) 8 7-22 [facility]2016-07-03 06:44:00 Test Item Value Reference Range Interpretation Comments Glucose Lvl (test code = Glucose Lvl) 91 70-99 [facility]2016-07-03 06:44:00 Test Item Value Reference Range Interpretation Comments Sodium Lvl (test code = Sodium Lvl) 138 135-145 [facility]2016-07-03 06:44:00 Test Item Value Reference Range Interpretation Comments Creatinine Lvl (test code = Creatinine 0.70 0.50-1.40 Lvl) [facility]2016-07-03 06:44:00 Test Item Value Reference Range Interpretation Comments Potassium Lvl (test code = Potassium 3.3 3.5-5.1 Lvl) [facility]2016-07-03 06:44:00 Test Item Value Reference Range Interpretation Comments CO2 (test code = CO2) 25 24-32 [facility]2016-07-03 06:44:00 Test Item Value Reference Range Interpretation Comments Chloride Lvl (test code = Chloride Lvl) 106 95-109 [facility]2016-07-03 06:44:00 Test Item Value Reference Range Interpretation Comments Calcium Lvl (test code = Calcium Lvl) 8.1 8.5-10.5 [facility]2016-07-03 06:44:00 Test Item Value Reference Range Interpretation Comments AGAP (test code = AGAP) 10.3 10.0-20.0 [facility]2016-07-03 06:44:00 Test Item Value Reference Range Interpretation Comments Magnesium Lvl (test code = Magnesium 2.2 1.8-2.4 Lvl) [facility] CenterOqrryerUGSIFTUPOWIVE0439-36-03 06:44:00 Test Item Value Reference Range Interpretation Comments S Preg (test code = S Negative *NA*(02/13/16 Preg) 1:44 AM) [facility] HospitalMrjnlsnOTTAKPCXQQ5979-02-08 06:44:00 Test Item Value Reference Range Interpretation Comments Basophils (test code = 0.1 See_Comment [Aut omated message] The Basophils) system which ge nerated this result tra nsmitted reference range : <=1.0. The reference r ozzy was not used to int erpret this result as normal/abnormal . [facility] HospitalSrjjkpjHMSZNEZLNL9259-44-90 06:44:00 Test Item Value Reference Range Interpretation Comments Monocytes # (test code 0.3 See_Comment [Aut omated message] The = Monocytes #) system which generated this result tra nsmitted reference range : <=0.8. The reference r ozzy was not used to int erpret this result as normal/abnormal . [facility] HospitalCswfwqxPCCNJTNRBF7563-30-94 06:44:00 Test Item Value Reference Range Interpretation Comments Eosinophils # (test code 0.1 See_Comment [A utomated message] The = Eosinophils #) system whic h generated this result tra nsmitted reference range : <=0.5. The reference r ozzy was not used to int erpret this result as normal/abnormal . [facility] HospitalOmhtmadRLCZAUFEAH7139-94-73 06:44:00 Test Item Value Reference Range Interpretation Comments Segs-Bands # (test code = Segs-Bands #) 9.3 1.5-8.1 [facility] HospitalRcjcvfvFIOAYUTPBA7982-71-87 06:44:00 Test Item Value Reference Range Interpretation Comments Lymphocytes # (test code = Lymphocytes 2.6 1.0-5.5 #) [facility] HospitalDypqpvaYFXMAQAMCL2270-59-18 06:44:00 Test Item Value Reference Range Interpretation Comments Basophils # (test code 0.0 See_Comment [Aut omated message] The = Basophils #) system which generated this result tra nsmitted reference range : <=0.2. The reference r ozzy was not used to int erpret this result as normal/abnormal . [facility] HospitalZyeclgwELMGALLTQQ7172-70-66 06:44:00 Test Item Value Reference Range Interpretation Comments Microcyte (test code = 1+ *ABN*(02/13/16 1:44 Microcyte) AM) [facility] HospitalEgznqedHBRYDRCNVI7526-11-24 06:44:00 Test Item Value Reference Range Interpretation Comments Giant Plt (test code Moderate *ABN*(02/13/16 = Giant Plt) 1:44 AM) [facility] HospitalVionytzBGPCFLDWPW5564-48-05 06:44:00 Test Item Value Reference Range Interpretation Comments Segs (test code = Segs) 75.2 45.0-75.0 [facility] HospitalWrsawqfUCWHYBLRZZ4758-61-53 06:44:00 Test Item Value Reference Range Interpretation Comments Hypochrom (test code = 1+ (02/13/16 1:44 AM) Hypochrom) [facility] HospitalBuuvnmlLDSMZFRFCO8292-19-25 06:44:00 Test Item Value Reference Range Interpretation Comments Eosinophils (test code = 0.7 See_Comment [A utomated message] The Eosinophils) system which ge nerated this result tra nsmitted reference range : <=4.0. The reference r ozzy was not used to int erpret this result as normal/abnormal . [facility] HospitalWmjxrwaAUTEDSWIXC8185-48-90 06:44:00 Test Item Value Reference Range Interpretation Comments Lymphocytes (test code = Lymphocytes) 21.3 20.0-40.0 [facility] HospitalEyrnqvnQUQDDPYNGK5512-29-88 06:44:00 Test Item Value Reference Range Interpretation Comments Monocytes (test code = Monocytes) 2.7 2.0-12.0 [facility] HospitalCavjlulQOMZKVYZYY6974-82-90 06:44:00 Test Item Value Reference Range Interpretation Comments MPV (test code = MPV) 9.5 7.4-10.4 [facility] HospitalBusgecoFIEQGHULPE4823-88-51 06:44:00 Test Item Value Reference Range Interpretation Comments RDW (test code = RDW) 17.8 11.5-14.5 [facility] HospitalBgkzpkoPTRSLWHDNI9061-10-02 06:44:00 Test Item Value Reference Range Interpretation Comments MCV (test code = MCV) 73.2 80.0-98.0 [facility] HospitalHpcpuooGRNLNQZHUI7967-83-66 06:44:00 Test Item Value Reference Range Interpretation Comments MCH (test code = MCH) 21.9 pg 27.0-31.0 [facility] HospitalGpkiskwEEHASSTABU3327-69-12 06:44:00 Test Item Value Reference Range Interpretation Comments Hct (test code = Hct) 27.2 36.0-48.0 [facility] HospitalMasgcadKDOJTLBXPE2014-71-86 06:44:00 Test Item Value Reference Range Interpretation Comments MCHC (test code = MCHC) 29.9 32.0-36.0 [facility] HdpvpwqJKRRDKEOLP5811-02-22 06:44:00 Test Item Value Reference Range Interpretation Comments Platelet (test code = Platelet) 400 133-450 [facility] ArjhkhsHLXUMPJBSC5486-63-97 06:44:00 Test Item Value Reference Range Interpretation Comments WBC (test code = WBC) 12.4 3.7-10.4 [facility] VremytpSJVRLOZFMS8005-55-04 06:44:00 Test Item Value Reference Range Interpretation Comments RBC (test code = RBC) 3.72 4.20-5.40 [facility] QvrlccsOWHHVZOEWF4850-19-27 06:44:00 Test Item Value Reference Range Interpretation Comments Hgb (test code = Hgb) 8.1 12.0-16.0 [facility] PvsbqwyMYRAZTKYKD7857-44-43 06:44:00 Test Item Value Reference Range Interpretation Comments PTT (test code = PTT) 27.2 s 22.9-35.8 [facility] NzgqkfsGDOYOGDMCZ6309-24-29 06:44:00 Test Item Value Reference Range Interpretation Comments PT (test code = PT) 14.7 s 12.0-14.7 [facility] DvzhzirINFXCKIERU6453-52-50 06:44:00 Test Item Value Reference Range Interpretation Comments INR (test code = INR) 1.12 0.85-1.17 [facility] [employer] WQXMUCA2819-99-74 06:44:00 Test Item Value Reference Range Interpretation Comments Antibody Scrn (test Negative (02/13/16 1:44 code = Antibody Scrn) AM) [facility] RNKXVOK3437-42-03 06:44:00 Test Item Value Reference Range Interpretation Comments ABO/Rh (test code = ABO/Rh) A POS [facility] [employer]2016-07-03 06:44:00 Test Item Value Reference Range Interpretation Comments CK MB Index (test 1.6 See_Comment [Automate d message] The code = CK MB Index) system w [facility] generated this result transmit gaye reference range : <=2.5. The reference range was not used to interpr et this result as satish l/abnormal. [email or web address] 06:44:00 Test Item Value Reference Range Interpretation Comments CK MB (test code = CK MB) 0.9 0.5-3.6 [facility] XYXBJQA5709-42-39 06:44:00 Test Item Value Reference Range Interpretation Comments Total CK (test code = Total CK) 57 12-191 [facility] [employer] EXLDNDG9815-00-22 06:44:00 Test Item Value Reference Range Interpretation Comments Troponin-I (test code no gt See_Comment [Auto mated message] The = Troponin-I) system which g enerated this result transmit gaye reference range : <=0.40. The reference r ozzy was not used to interpr et this result as satish l/abnormal. [facility] [employer] [id number] 06:44:00 Test Item Value Reference Range Interpretation Comments Albumin Lvl (test code = Albumin Lvl) 3.5 3.5-5.0 [facility] [employer] [id number] 06:44:00 Test Item Value Reference Range Interpretation Comments Total Protein (test code = Total 7.0 6.4-8.4 Protein) [facility] [facility] [id number] 06:44:00 Test Item Value Reference Range Interpretation Comments ALT (test code = ALT) 19 See_Comment [Auto mated message] The system which ge nerated this result transmit gaye reference range : <=65. The reference range was not used to interpr et this result as satish l/abnormal. [facility] [employer] [id number] 06:44:00 Test Item Value Reference Range Interpretation Comments AST (test code = AST) 10 See_Comment [Auto mated message] The system which ge nerated this result transmit gaye reference range : <=37. The reference range was not used to interpr et this result as satish l/abnormal. [facility] [employer]2016-07-03 06:44:00 Test Item Value Reference Range Interpretation Comments Alk Phos (test code = Alk Phos) 79 39-136 [facility] [employer] [id number] 06:44:00 Test Item Value Reference Range Interpretation Comments Bili Total (test code = Bili Total) 0.4 0.2-1.3 [facility] [employer]2016-07-03 06:44:00 Test Item Value Reference Range Interpretation Comments Bili Direct (test code 0.1 See_Comment [Aut omated message] The = Bili Direct) system which generated this result tra nsmitted reference range : <=0.3. The reference r ozzy was not used to int erpret this result as satish l/abnormal. [facility]2016-07-03 06:44:00 Test Item Value Reference Range Interpretation Comments Globulin (test code = Globulin) 3.5 2.0-4.0 [facility]2016-07-03 06:44:00 Test Item Value Reference Range Interpretation Comments A/G Ratio (test code = A/G Ratio) 1.0 0.7-1.6 [place] [id number] 06:44:00 Test Item Value Reference Range Interpretation Comments Bili Indirect (test 0.3 See_Comment [Automa gaye message] The code = Bili Indirect) system which generated this result tra nsmitted reference range : <=1.0. The reference r ozzy was not used to int erpret this result as normal/abnormal . [place] 358136-07-03 06:44:00 Test Item Value Reference Range Interpretation Comments eGFR (test code = eGFR) 107 [facility]2016-07-03 06:44:00 Test Item Value Reference Range Interpretation Comments BUN (test code = BUN) 8 7-22 [facility]2016-07-03 06:44:00 Test Item Value Reference Range Interpretation Comments Glucose Lvl (test code = Glucose Lvl) 91 70-99 [facility]2016-07-03 06:44:00 Test Item Value Reference Range Interpretation Comments Sodium Lvl (test code = Sodium Lvl) 138 135-145 [facility]2016-07-03 06:44:00 Test Item Value Reference Range Interpretation Comments Creatinine Lvl (test code = Creatinine 0.70 0.50-1.40 Lvl) [facility]2016-07-03 06:44:00 Test Item Value Reference Range Interpretation Comments Potassium Lvl (test code = Potassium 3.3 3.5-5.1 Lvl) [facility]2016-07-03 06:44:00 Test Item Value Reference Range Interpretation Comments CO2 (test code = CO2) 25 24-32 [facility]2016-07-03 06:44:00 Test Item Value Reference Range Interpretation Comments Chloride Lvl (test code = Chloride Lvl) 106 95-109 [facility]2016-07-03 06:44:00 Test Item Value Reference Range Interpretation Comments Calcium Lvl (test code = Calcium Lvl) 8.1 8.5-10.5 [facility]2016-07-03 06:44:00 Test Item Value Reference Range Interpretation Comments AGAP (test code = AGAP) 10.3 10.0-20.0 [facility]2016-07-03 06:44:00 Test Item Value Reference Range Interpretation Comments Magnesium Lvl (test code = Magnesium 2.2 1.8-2.4 Lvl) [facility]qel[facility]ZNHQJEFXTAJF9244-06-60 06:44:00 Test Item Value Reference Range Interpretation Comments S Preg (test code = S Negative *NA*(02/13/16 Preg) 1:44 AM) [facility] HospitalPsejwoiGKRLLUHCAO0987-62-22 06:44:00 Test Item Value Reference Range Interpretation Comments Basophils (test code = 0.1 See_Comment [Aut omated message] The Basophils) system which ge nerated this result tra nsmitted reference range : <=1.0. The reference r ozzy was not used to int erpret this result as normal/abnormal . [facility] HospitalEsksymeUOJWVVIRHC5676-75-02 06:44:00 Test Item Value Reference Range Interpretation Comments Monocytes # (test code 0.3 See_Comment [Aut omated message] The = Monocytes #) system which generated this result tra nsmitted reference range : <=0.8. The reference r ozzy was not used to int erpret this result as normal/abnormal . [facility] HospitalSfiausiZYHCYMHURJ1366-41-71 06:44:00 Test Item Value Reference Range Interpretation Comments Eosinophils # (test code 0.1 See_Comment [A utomated message] The = Eosinophils #) system whic h generated this result tra nsmitted reference range : <=0.5. The reference r ozzy was not used to int erpret this result as normal/abnormal . [facility] HospitalSdyzksbENTGCCPFVV6547-65-27 06:44:00 Test Item Value Reference Range Interpretation Comments Segs-Bands # (test code = Segs-Bands #) 9.3 1.5-8.1 [facility] HospitalMjhsdyeDAKPROZAOI1258-10-76 06:44:00 Test Item Value Reference Range Interpretation Comments Lymphocytes # (test code = Lymphocytes 2.6 1.0-5.5 #) [facility] HospitalUahfqlsXVQCXDMPKZ6142-70-08 06:44:00 Test Item Value Reference Range Interpretation Comments Basophils # (test code 0.0 See_Comment [Aut omated message] The = Basophils #) system which generated this result tra nsmitted reference range : <=0.2. The reference r ozzy was not used to int erpret this result as normal/abnormal . [facility] HospitalKzcnftiEPDJIFIVIJ3919-77-08 06:44:00 Test Item Value Reference Range Interpretation Comments Microcyte (test code = 1+ *ABN*(02/13/16 1:44 Microcyte) AM) [facility] HospitalTeodhdpCYXMHOQFUU5366-12-68 06:44:00 Test Item Value Reference Range Interpretation Comments Giant Plt (test code Moderate *ABN*(02/13/16 = Giant Plt) 1:44 AM) [facility] HospitalGzvfbefLPXTECMLZO3338-92-96 06:44:00 Test Item Value Reference Range Interpretation Comments Segs (test code = Segs) 75.2 45.0-75.0 [facility] HospitalPmvekejKRCXPIIRKV8791-12-83 06:44:00 Test Item Value Reference Range Interpretation Comments Hypochrom (test code = 1+ (02/13/16 1:44 AM) Hypochrom) [facility] HospitalDywscflYKSLADTTHU0684-75-40 06:44:00 Test Item Value Reference Range Interpretation Comments Eosinophils (test code = 0.7 See_Comment [A utomated message] The Eosinophils) system which ge nerated this result tra nsmitted reference range : <=4.0. The reference r ozzy was not used to int erpret this result as normal/abnormal . [facility] HospitalByjkhncVBYQQACAHU3008-08-74 06:44:00 Test Item Value Reference Range Interpretation Comments Lymphocytes (test code = Lymphocytes) 21.3 20.0-40.0 [facility] HospitalUbjguxeIZBKNRVODE6263-29-08 06:44:00 Test Item Value Reference Range Interpretation Comments Monocytes (test code = Monocytes) 2.7 2.0-12.0 [facility] HospitalTajorowNMAJPPBDZR9522-89-12 06:44:00 Test Item Value Reference Range Interpretation Comments MPV (test code = MPV) 9.5 7.4-10.4 [facility] HospitalXiqhftuZLWMXSWPVK7488-27-12 06:44:00 Test Item Value Reference Range Interpretation Comments RDW (test code = RDW) 17.8 11.5-14.5 [facility] HospitalGvrnwnwTCJKLAICEB6289-85-96 06:44:00 Test Item Value Reference Range Interpretation Comments MCV (test code = MCV) 73.2 80.0-98.0 [facility] HospitalJjwxiznQQZDRPRGTC0115-17-22 06:44:00 Test Item Value Reference Range Interpretation Comments MCH (test code = MCH) 21.9 pg 27.0-31.0 [facility] HospitalEyvefhyIQJLMKQIAE5018-73-22 06:44:00 Test Item Value Reference Range Interpretation Comments Hct (test code = Hct) 27.2 36.0-48.0 [facility] HospitalHcqgegyUOKTZVBDEK3718-47-59 06:44:00 Test Item Value Reference Range Interpretation Comments MCHC (test code = MCHC) 29.9 32.0-36.0 [facility] HospitalXdbzhwtNSKPUWHVJN5792-92-15 06:44:00 Test Item Value Reference Range Interpretation Comments Platelet (test code = Platelet) 400 133-450 [facility] HospitalRvmbfyoLPNKZKXRGA2076-02-34 06:44:00 Test Item Value Reference Range Interpretation Comments WBC (test code = WBC) 12.4 3.7-10.4 [facility] HospitalOkvtvppAIVCDFYBPU7498-54-48 06:44:00 Test Item Value Reference Range Interpretation Comments RBC (test code = RBC) 3.72 4.20-5.40 [facility] HospitalKojkimpIPDBHWCSRF6262-72-81 06:44:00 Test Item Value Reference Range Interpretation Comments Hgb (test code = Hgb) 8.1 12.0-16.0 [facility] HospitalSeuzhlgEZHEFBHLVO4771-52-78 06:44:00 Test Item Value Reference Range Interpretation Comments PTT (test code = PTT) 27.2 s 22.9-35.8 [facility] HospitalXltzxbkPLOFTQJYPW6373-37-47 06:44:00 Test Item Value Reference Range Interpretation Comments PT (test code = PT) 14.7 s 12.0-14.7 [facility] HospitalSoyppbbAGIYOFMMIT6525-14-17 06:44:00 Test Item Value Reference Range Interpretation Comments INR (test code = INR) 1.12 0.85-1.17 [facility] [id number] 06:44:00 Test Item Value Reference Range Interpretation Comments Antibody Scrn (test Negative (02/13/16 1:44 code = Antibody Scrn) AM) [facility] [employer] [id number] 06:44:00 Test Item Value Reference Range Interpretation Comments ABO/Rh (test code = ABO/Rh) A POS [facility] [id number] 06:44:00 Test Item Value Reference Range Interpretation Comments CK MB Index (test 1.6 See_Comment [Automate d message] The code = CK MB Index) system w [facility] generated this result transmit gaye reference range : <=2.5. The reference range was not used to interpr et this result as satish l/abnormal. [facility] [employer] [id number] 06:44:00 Test Item Value Reference Range Interpretation Comments CK MB (test code = CK MB) 0.9 0.5-3.6 [facility] [employer] [id number] 06:44:00 Test Item Value Reference Range Interpretation Comments Total CK (test code = Total CK) 57 12-191 [facility] [employer] [id number] 06:44:00 Test Item Value Reference Range Interpretation Comments Troponin-I (test code no gt See_Comment [Auto mated message] The = Troponin-I) system which g enerated this result transmit gaye reference range : <=0.40. The reference r ozzy was not used to interpr et this result as satish l/abnormal. [employer] [id number] 06:44:00 Test Item Value Reference Range Interpretation Comments Albumin Lvl (test code = Albumin Lvl) 3.5 3.5-5.0 [facility] [employer] [id number] 06:44:00 Test Item Value Reference Range Interpretation Comments Total Protein (test code = Total 7.0 6.4-8.4 Protein) [facility] [employer] [id number] 06:44:00 Test Item Value Reference Range Interpretation Comments ALT (test code = ALT) 19 See_Comment [Auto mated message] The system which ge nerated this result transmit gaye reference range : <=65. The reference range was not used to interpr et this result as satish l/abnormal. [employer] [id number] 06:44:00 Test Item Value Reference Range Interpretation Comments AST (test code = AST) 10 See_Comment [Auto mated message] The system which ge nerated this result transmit gaye reference range : <=37. The reference range was not used to interpr et this result as satish l/abnormal. [facility]2016-07-03 06:44:00 Test Item Value Reference Range Interpretation Comments Alk Phos (test code = Alk Phos) 79 39-136 [facility]2016-07-03 06:44:00 Test Item Value Reference Range Interpretation Comments Bili Total (test code = Bili Total) 0.4 0.2-1.3 [facility]2016-07-03 06:44:00 Test Item Value Reference Range Interpretation Comments Bili Direct (test code 0.1 See_Comment [Aut omated message] The = Bili Direct) system which generated this result tra nsmitted reference range : <=0.3. The reference r ozzy was not used to int erpret this result as satish l/abnormal. [facility]2016-07-03 06:44:00 Test Item Value Reference Range Interpretation Comments Globulin (test code = Globulin) 3.5 2.0-4.0 [facility]2016-07-03 06:44:00 Test Item Value Reference Range Interpretation Comments A/G Ratio (test code = A/G Ratio) 1.0 0.7-1.6 [place] 358136-07-03 06:44:00 Test Item Value Reference Range Interpretation Comments Bili Indirect (test 0.3 See_Comment [Automa gaye message] The code = Bili Indirect) system which generated this result tra nsmitted reference range : <=1.0. The reference r ozzy was not used to int erpret this result as normal/abnormal . [facility] CenterGreenWave RealityATRIUM HEALTH PROVIDENCEALLPC5843-06-54 06:44:00 Test Item Value Reference Range Interpretation Comments eGFR (test code = eGFR) 107 [facility]2016-07-03 06:44:00 Test Item Value Reference Range Interpretation Comments BUN (test code = BUN) 8 7-22 [facility]2016-07-03 06:44:00 Test Item Value Reference Range Interpretation Comments Glucose Lvl (test code = Glucose Lvl) 91 70-99 [place] 358136-07-03 06:44:00 Test Item Value Reference Range Interpretation Comments Sodium Lvl (test code = Sodium Lvl) 138 135-145 [facility]2016-07-03 06:44:00 Test Item Value Reference Range Interpretation Comments Creatinine Lvl (test code = Creatinine 0.70 0.50-1.40 Lvl) [facility]2016-07-03 06:44:00 Test Item Value Reference Range Interpretation Comments Potassium Lvl (test code = Potassium 3.3 3.5-5.1 Lvl) [facility]2016-07-03 06:44:00 Test Item Value Reference Range Interpretation Comments CO2 (test code = CO2) 25 24-32 [facility]2016-07-03 06:44:00 Test Item Value Reference Range Interpretation Comments Chloride Lvl (test code = Chloride Lvl) 106 95-109 [facility]2016-07-03 06:44:00 Test Item Value Reference Range Interpretation Comments Calcium Lvl (test code = Calcium Lvl) 8.1 8.5-10.5 [facility]2016-07-03 06:44:00 Test Item Value Reference Range Interpretation Comments AGAP (test code = AGAP) 10.3 10.0-20.0 [facility]2016-07-03 06:44:00 Test Item Value Reference Range Interpretation Comments Magnesium Lvl (test code = Magnesium 2.2 1.8-2.4 Lvl) [facility] CenterKssrubyTPWJCWEVKYKFH6708-38-00 06:44:00 Test Item Value Reference Range Interpretation Comments S Preg (test code = S Negative *NA*(02/13/16 Preg) 1:44 AM) [facility] HospitalP[id number] 06:44:00 Test Item Value Reference Range Interpretation Comments Basophils (test code = 0.1 See_Comment [Aut omated message] The Basophils) system which ge nerated this result tra nsmitted reference range : <=1.0. The reference r ozzy was not used to int erpret this result as normal/abnormal . [facility] HospitalVzltfnuCHRKAHTRUN7977-29-35 06:44:00 Test Item Value Reference Range Interpretation Comments Monocytes # (test code 0.3 See_Comment [Aut omated message] The = Monocytes #) system which generated this result tra nsmitted reference range : <=0.8. The reference r ozzy was not used to int erpret this result as normal/abnormal . [facility] HospitalYvpcmptRMWAOSBYZO3112-32-04 06:44:00 Test Item Value Reference Range Interpretation Comments Eosinophils # (test code 0.1 See_Comment [A utomated message] The = Eosinophils #) system whic h generated this result tra nsmitted reference range : <=0.5. The reference r ozzy was not used to int erpret this result as normal/abnormal . [facility] HospitalAuhmlmsGVXVNSUWJX1663-57-41 06:44:00 Test Item Value Reference Range Interpretation Comments Segs-Bands # (test code = Segs-Bands #) 9.3 1.5-8.1 [facility] HospitalHokfuovILWCYTYXCH3637-66-10 06:44:00 Test Item Value Reference Range Interpretation Comments Lymphocytes # (test code = Lymphocytes 2.6 1.0-5.5 #) [facility] HospitalYgdndvtIXPWWUAUDY5759-34-31 06:44:00 Test Item Value Reference Range Interpretation Comments Basophils # (test code 0.0 See_Comment [Aut omated message] The = Basophils #) system which generated this result tra nsmitted reference range : <=0.2. The reference r ozzy was not used to int erpret this result as normal/abnormal . [facility] HospitalImhdilzYOHOHHTCEV2337-25-27 06:44:00 Test Item Value Reference Range Interpretation Comments Microcyte (test code = 1+ *ABN*(02/13/16 1:44 Microcyte) AM) [facility] HospitalMentlejBOFBMKOOUX4361-37-67 06:44:00 Test Item Value Reference Range Interpretation Comments Giant Plt (test code Moderate *ABN*(02/13/16 = Giant Plt) 1:44 AM) [facility] HospitalMtmvtoqRHVTUXLTMF5414-21-88 06:44:00 Test Item Value Reference Range Interpretation Comments Segs (test code = Segs) 75.2 45.0-75.0 [facility] HospitalFgmzbpxLGIQGZGFIU1461-67-99 06:44:00 Test Item Value Reference Range Interpretation Comments Hypochrom (test code = 1+ (02/13/16 1:44 AM) Hypochrom) [facility] HospitalMzpqrdqDDAUYEEOSR4071-52-60 06:44:00 Test Item Value Reference Range Interpretation Comments Eosinophils (test code = 0.7 See_Comment [A utomated message] The Eosinophils) system which ge nerated this result tra nsmitted reference range : <=4.0. The reference r ozzy was not used to int erpret this result as normal/abnormal . [facility] HospitalThvocnlJWTGQDTZMV7610-79-64 06:44:00 Test Item Value Reference Range Interpretation Comments Lymphocytes (test code = Lymphocytes) 21.3 20.0-40.0 [facility] HospitalWabfbzvISDUSRMCHX9909-67-24 06:44:00 Test Item Value Reference Range Interpretation Comments Monocytes (test code = Monocytes) 2.7 2.0-12.0 [facility] HospitalIzawwihUTXZCQGDEJ4271-15-66 06:44:00 Test Item Value Reference Range Interpretation Comments MPV (test code = MPV) 9.5 7.4-10.4 [facility] HospitalRcivgmyVBSGSANBWG6232-95-99 06:44:00 Test Item Value Reference Range Interpretation Comments RDW (test code = RDW) 17.8 11.5-14.5 [facility] HospitalBxqarfxBZVTHLEWHO6165-49-36 06:44:00 Test Item Value Reference Range Interpretation Comments MCV (test code = MCV) 73.2 80.0-98.0 [facility] HospitalTcswrzpVUJIECNYLN8203-72-48 06:44:00 Test Item Value Reference Range Interpretation Comments MCH (test code = MCH) 21.9 pg 27.0-31.0 [facility] HospitalJnocdonWIISFTSDMM8551-74-01 06:44:00 Test Item Value Reference Range Interpretation Comments Hct (test code = Hct) 27.2 36.0-48.0 [facility] HospitalXoswagkRZXHYGPQIE0348-35-34 06:44:00 Test Item Value Reference Range Interpretation Comments MCHC (test code = MCHC) 29.9 32.0-36.0 [facility] HospitalVtuifjlCTUXTZZHPS5797-52-23 06:44:00 Test Item Value Reference Range Interpretation Comments Platelet (test code = Platelet) 400 133-450 [facility] HospitalUzgcitnWNLEEZTWBJ0342-60-08 06:44:00 Test Item Value Reference Range Interpretation Comments WBC (test code = WBC) 12.4 3.7-10.4 [facility] HospitalXpnpqtvIVPNIHIGVG1846-79-39 06:44:00 Test Item Value Reference Range Interpretation Comments RBC (test code = RBC) 3.72 4.20-5.40 [facility] HospitalHwtqnuvOLDBLZFPJU3961-01-55 06:44:00 Test Item Value Reference Range Interpretation Comments Hgb (test code = Hgb) 8.1 12.0-16.0 [facility] ZlfbasjHEBYSRNDHB3056-77-50 06:44:00 Test Item Value Reference Range Interpretation Comments PTT (test code = PTT) 27.2 s 22.9-35.8 [facility] RsywejaNAEEJSSHOP7940-19-59 06:44:00 Test Item Value Reference Range Interpretation Comments PT (test code = PT) 14.7 s 12.0-14.7 [facility] OcywixlHCHNHSAUFD8985-76-24 06:44:00 Test Item Value Reference Range Interpretation Comments INR (test code = INR) 1.12 0.85-1.17 [facility] [id number] 06:44:00 Test Item Value Reference Range Interpretation Comments Antibody Scrn (test Negative (02/13/16 1:44 code = Antibody Scrn) AM) [facility] HATVEMO3569-06-56 06:44:00 Test Item Value Reference Range Interpretation Comments ABO/Rh (test code = ABO/Rh) A POS [facility] [employer]2016-07-03 06:44:00 Test Item Value Reference Range Interpretation Comments CK MB Index (test 1.6 See_Comment [Automate d message] The code = CK MB Index) system w [facility] generated this result transmit gaye reference range : <=2.5. The reference range was not used to interpr et this result as satish l/abnormal. [email or web address]2016-07-03 06:44:00 Test Item Value Reference Range Interpretation Comments CK MB (test code = CK MB) 0.9 0.5-3.6 [facility] [employer]2016-07-03 06:44:00 Test Item Value Reference Range Interpretation Comments Total CK (test code = Total CK) 57 12-191 [facility] [employer]2016-07-03 06:44:00 Test Item Value Reference Range Interpretation Comments Troponin-I (test code no gt See_Comment [Auto mated message] The = Troponin-I) system which g enerated this result transmit gaye reference range : <=0.40. The reference r ozzy was not used to interpr et this result as satish l/abnormal. [employer] [id number] 06:44:00 Test Item Value Reference Range Interpretation Comments Albumin Lvl (test code = Albumin Lvl) 3.5 3.5-5.0 [facility]2016-07-03 06:44:00 Test Item Value Reference Range Interpretation Comments Total Protein (test code = Total 7.0 6.4-8.4 Protein) [facility]2016-07-03 06:44:00 Test Item Value Reference Range Interpretation Comments ALT (test code = ALT) 19 See_Comment [Auto mated message] The system which ge nerated this result transmit gaye reference range : <=65. The reference range was not used to interpr et this result as satish l/abnormal. [facility]2016-07-03 06:44:00 Test Item Value Reference Range Interpretation Comments AST (test code = AST) 10 See_Comment [Auto mated message] The system which ge nerated this result transmit gaye reference range : <=37. The reference range was not used to interpr et this result as satish l/abnormal. [facility]2016-07-03 06:44:00 Test Item Value Reference Range Interpretation Comments Alk Phos (test code = Alk Phos) 79 39-136 [facility] [id number] 06:44:00 Test Item Value Reference Range Interpretation Comments Bili Total (test code = Bili Total) 0.4 0.2-1.3 [facility]2016-07-03 06:44:00 Test Item Value Reference Range Interpretation Comments Bili Direct (test code 0.1 See_Comment [Aut omated message] The = Bili Direct) system which generated this result tra nsmitted reference range : <=0.3. The reference r ozzy was not used to int erpret this result as satish l/abnormal. [facility] CenterCARD[facility] [id number] 06:44:00 Test Item Value Reference Range Interpretation Comments Globulin (test code = Globulin) 3.5 2.0-4.0 [place] 358136-07-03 06:44:00 Test Item Value Reference Range Interpretation Comments A/G Ratio (test code = A/G Ratio) 1.0 0.7-1.6 [facility] [id number] 06:44:00 Test Item Value Reference Range Interpretation Comments Bili Indirect (test 0.3 See_Comment [Automa gaye message] The code = Bili Indirect) system which generated this result tra nsmitted reference range : <=1.0. The reference r ozzy was not used to int erpret this result as normal/abnormal . [facility]2016-07-03 06:44:00 Test Item Value Reference Range Interpretation Comments eGFR (test code = eGFR) 107 [facility]2016-07-03 06:44:00 Test Item Value Reference Range Interpretation Comments BUN (test code = BUN) 8 7-22 [facility]2016-07-03 06:44:00 Test Item Value Reference Range Interpretation Comments Glucose Lvl (test code = Glucose Lvl) 91 70-99 [facility]2016-07-03 06:44:00 Test Item Value Reference Range Interpretation Comments Sodium Lvl (test code = Sodium Lvl) 138 135-145 [facility]2016-07-03 06:44:00 Test Item Value Reference Range Interpretation Comments Creatinine Lvl (test code = Creatinine 0.70 0.50-1.40 Lvl) [facility]2016-07-03 06:44:00 Test Item Value Reference Range Interpretation Comments Potassium Lvl (test code = Potassium 3.3 3.5-5.1 Lvl) [facility]2016-07-03 06:44:00 Test Item Value Reference Range Interpretation Comments CO2 (test code = CO2) 25 24-32 [facility]2016-07-03 06:44:00 Test Item Value Reference Range Interpretation Comments Chloride Lvl (test code = Chloride Lvl) 106 95-109 [facility]2016-07-03 06:44:00 Test Item Value Reference Range Interpretation Comments Calcium Lvl (test code = Calcium Lvl) 8.1 8.5-10.5 [facility]2016-07-03 06:44:00 Test Item Value Reference Range Interpretation Comments AGAP (test code = AGAP) 10.3 10.0-20.0 [facility]2016-07-03 06:44:00 Test Item Value Reference Range Interpretation Comments Magnesium Lvl (test code = Magnesium 2.2 1.8-2.4 Lvl) [place] [id number] 06:44:00 Test Item Value Reference Range Interpretation Comments S Preg (test code = S Negative *NA*(02/13/16 Preg) 1:44 AM) [facility] HospitalFelcgupFMMHYQNHUO8974-33-37 06:44:00 Test Item Value Reference Range Interpretation Comments Basophils (test code = 0.1 See_Comment [Aut omated message] The Basophils) system which ge nerated this result tra nsmitted reference range : <=1.0. The reference r ozzy was not used to int erpret this result as normal/abnormal . [facility] HospitalPyxlnsqHDEWGUVCIA1814-20-45 06:44:00 Test Item Value Reference Range Interpretation Comments Monocytes # (test code 0.3 See_Comment [Aut omated message] The = Monocytes #) system which generated this result tra nsmitted reference range : <=0.8. The reference r ozzy was not used to int erpret this result as normal/abnormal . [facility] HospitalBykgqznFFHJRAZLKQ0791-05-46 06:44:00 Test Item Value Reference Range Interpretation Comments Eosinophils # (test code 0.1 See_Comment [A utomated message] The = Eosinophils #) system whic h generated this result tra nsmitted reference range : <=0.5. The reference r ozzy was not used to int erpret this result as normal/abnormal . [facility] HospitalMnkxqgmBTATGIWXHY6634-55-93 06:44:00 Test Item Value Reference Range Interpretation Comments Segs-Bands # (test code = Segs-Bands #) 9.3 1.5-8.1 [facility] HospitalQpvqvuhHHMPDOAGHB3691-25-77 06:44:00 Test Item Value Reference Range Interpretation Comments Lymphocytes # (test code = Lymphocytes 2.6 1.0-5.5 #) [facility] HospitalHjqkynkOOXHTDWIZZ7002-13-21 06:44:00 Test Item Value Reference Range Interpretation Comments Basophils # (test code 0.0 See_Comment [Aut omated message] The = Basophils #) system which generated this result tra nsmitted reference range : <=0.2. The reference r ozzy was not used to int erpret this result as normal/abnormal . [facility] HospitalGoesqxkZRFZYCLMOZ1876-38-14 06:44:00 Test Item Value Reference Range Interpretation Comments Microcyte (test code = 1+ *ABN*(02/13/16 1:44 Microcyte) AM) [facility] HospitalJlkafhaPKTVZRZHWF5155-35-60 06:44:00 Test Item Value Reference Range Interpretation Comments Giant Plt (test code Moderate *ABN*(02/13/16 = Giant Plt) 1:44 AM) [facility] HospitalClwxobnLSYNLOPFSI4289-49-29 06:44:00 Test Item Value Reference Range Interpretation Comments Segs (test code = Segs) 75.2 45.0-75.0 [facility] HospitalEzyzcykMOAGWPFXOV1790-07-58 06:44:00 Test Item Value Reference Range Interpretation Comments Hypochrom (test code = 1+ (02/13/16 1:44 AM) Hypochrom) [facility] HospitalRwgtwdgAVQBIVLPAI6105-90-80 06:44:00 Test Item Value Reference Range Interpretation Comments Eosinophils (test code = 0.7 See_Comment [A utomated message] The Eosinophils) system which ge nerated this result tra nsmitted reference range : <=4.0. The reference r ozzy was not used to int erpret this result as normal/abnormal . [facility] HospitalQbifuznLEAJWBEQTU0958-03-02 06:44:00 Test Item Value Reference Range Interpretation Comments Lymphocytes (test code = Lymphocytes) 21.3 20.0-40.0 [facility] HospitalFfftfjyNKMIONCKEQ3088-44-77 06:44:00 Test Item Value Reference Range Interpretation Comments Monocytes (test code = Monocytes) 2.7 2.0-12.0 [facility] HospitalOqgddynMUKXQWAMBU7284-31-32 06:44:00 Test Item Value Reference Range Interpretation Comments MPV (test code = MPV) 9.5 7.4-10.4 [facility] HospitalVfeklcpNJWAOLQVHL4762-07-84 06:44:00 Test Item Value Reference Range Interpretation Comments RDW (test code = RDW) 17.8 11.5-14.5 [facility] HospitalAfnmkrlSNFXTNYMEM0628-77-95 06:44:00 Test Item Value Reference Range Interpretation Comments MCV (test code = MCV) 73.2 80.0-98.0 [facility] HospitalCgkhisiUVTHIIYOFQ9631-69-43 06:44:00 Test Item Value Reference Range Interpretation Comments MCH (test code = MCH) 21.9 pg 27.0-31.0 [facility] HospitalPtvwykfONHIBWOXBJ1267-43-69 06:44:00 Test Item Value Reference Range Interpretation Comments Hct (test code = Hct) 27.2 36.0-48.0 [facility] HospitalVbayrimGOHFXSQSHT9561-12-32 06:44:00 Test Item Value Reference Range Interpretation Comments MCHC (test code = MCHC) 29.9 32.0-36.0 [facility] HospitalMmzguxrGKTDRNLSUC4244-63-00 06:44:00 Test Item Value Reference Range Interpretation Comments Platelet (test code = Platelet) 400 133-450 [facility] HospitalPhmgiupCIEMIDLYLP2929-27-44 06:44:00 Test Item Value Reference Range Interpretation Comments WBC (test code = WBC) 12.4 3.7-10.4 [facility] HospitalWatjfblJLWMBJLFQH6469-02-04 06:44:00 Test Item Value Reference Range Interpretation Comments RBC (test code = RBC) 3.72 4.20-5.40 [facility] HospitalOfhsgwfHMIFAQOPTL7312-16-69 06:44:00 Test Item Value Reference Range Interpretation Comments Hgb (test code = Hgb) 8.1 12.0-16.0 [facility] HospitalElqunksJFPWYHKQYK8378-19-86 06:44:00 Test Item Value Reference Range Interpretation Comments PTT (test code = PTT) 27.2 s 22.9-35.8 [facility] HospitalDaydbmuHEZTEOIOCJ1775-52-11 06:44:00 Test Item Value Reference Range Interpretation Comments PT (test code = PT) 14.7 s 12.0-14.7 [facility] HospitalWnhnjafAFKQDSKHCQ5040-05-36 06:44:00 Test Item Value Reference Range Interpretation Comments INR (test code = INR) 1.12 0.85-1.17 [facility] HospitalUhevesnOBTAOXMSRP6996-91-12 06:44:00 Test Item Value Reference Range Interpretation Comments Eosinophils # (test code 0.1 See_Comment [A utomated message] The = Eosinophils #) system whic h generated this result tra nsmitted reference range : <=0.5. The reference r ozzy was not used to int erpret this result as normal/abnormal . [facility] HospitalLtinzqlGDMLEJJESQ9370-34-69 06:44:00 Test Item Value Reference Range Interpretation Comments Segs-Bands # (test code = Segs-Bands #) 9.3 1.5-8.1 [facility] HospitalBpnpghqCYRGILVMSC7029-23-14 06:44:00 Test Item Value Reference Range Interpretation Comments Lymphocytes # (test code = Lymphocytes 2.6 1.0-5.5 #) [facility] HospitalSzvjhxoLBMYBVXAGY1503-38-57 06:44:00 Test Item Value Reference Range Interpretation Comments Basophils # (test code 0.0 See_Comment [Aut omated message] The = Basophils #) system which generated this result tra nsmitted reference range : <=0.2. The reference r ozzy was not used to int erpret this result as normal/abnormal . [facility] HospitalXigzzucVMSBHLCCVJ6272-22-22 06:44:00 Test Item Value Reference Range Interpretation Comments Microcyte (test code = 1+ *ABN*(02/13/16 1:44 Microcyte) AM) [facility] HospitalJoxxtyfBUGSUUHQUW7525-81-75 06:44:00 Test Item Value Reference Range Interpretation Comments Giant Plt (test code Moderate *ABN*(02/13/16 = Giant Plt) 1:44 AM) [facility] HospitalPkkxsouUXQOEMTUFH1513-29-41 06:44:00 Test Item Value Reference Range Interpretation Comments Segs (test code = Segs) 75.2 45.0-75.0 [facility] HospitalTemnhunYRPDZWTHUC5364-10-05 06:44:00 Test Item Value Reference Range Interpretation Comments Hypochrom (test code = 1+ (02/13/16 1:44 AM) Hypochrom) [facility] HospitalVudjbbfMKMEOUORYQ5204-74-52 06:44:00 Test Item Value Reference Range Interpretation Comments Eosinophils (test code = 0.7 See_Comment [A utomated message] The Eosinophils) system which ge nerated this result tra nsmitted reference range : <=4.0. The reference r ozzy was not used to int erpret this result as normal/abnormal . [facility] HospitalWeadszfRCVFGWFQZI6789-71-36 06:44:00 Test Item Value Reference Range Interpretation Comments Lymphocytes (test code = Lymphocytes) 21.3 20.0-40.0 [facility] HospitalBczshcnSGURUXXBJS0030-75-30 06:44:00 Test Item Value Reference Range Interpretation Comments Monocytes (test code = Monocytes) 2.7 2.0-12.0 [facility] HospitalMbtcfqsRZUBSHQVRS2112-66-01 06:44:00 Test Item Value Reference Range Interpretation Comments MPV (test code = MPV) 9.5 7.4-10.4 [facility] HospitalKohcounJUQKXPUGNI7137-87-80 06:44:00 Test Item Value Reference Range Interpretation Comments RDW (test code = RDW) 17.8 11.5-14.5 [facility]QpdmeqhLQFBVLYYEJ6200-00-32 06:44:00 Test Item Value Reference Range Interpretation Comments MCV (test code = MCV) 73.2 80.0-98.0 [facility] HospitalJkxhhvrHPIRLKEXMW4306-44-24 06:44:00 Test Item Value Reference Range Interpretation Comments MCH (test code = MCH) 21.9 pg 27.0-31.0 [facility] HospitalCjavxruDKLTJYXNOP1642-29-86 06:44:00 Test Item Value Reference Range Interpretation Comments Hct (test code = Hct) 27.2 36.0-48.0 [facility] HospitalOyuaqqxYZIJRIYJQS7539-82-81 06:44:00 Test Item Value Reference Range Interpretation Comments MCHC (test code = MCHC) 29.9 32.0-36.0 [facility] HospitalIlwqmlhHBSUDJOGZZ6083-35-08 06:44:00 Test Item Value Reference Range Interpretation Comments Platelet (test code = Platelet) 400 133-450 [facility] HospitalIqwjakwENUAUPPVCW9631-79-51 06:44:00 Test Item Value Reference Range Interpretation Comments WBC (test code = WBC) 12.4 3.7-10.4 [facility] HospitalLenotumSRHCWJFLSO1500-87-23 06:44:00 Test Item Value Reference Range Interpretation Comments RBC (test code = RBC) 3.72 4.20-5.40 [facility] HospitalKevbgrhIYIYUEZPIX4494-41-77 06:44:00 Test Item Value Reference Range Interpretation Comments Hgb (test code = Hgb) 8.1 12.0-16.0 [facility] HospitalYfvuoroDLMKRNFRTM5757-71-84 06:44:00 Test Item Value Reference Range Interpretation Comments PTT (test code = PTT) 27.2 s 22.9-35.8 [facility] HospitalEyjjyhjWPQNIMYVDU7009-83-55 06:44:00 Test Item Value Reference Range Interpretation Comments PT (test code = PT) 14.7 s 12.0-14.7 [facility] HospitalQtnjpbcEXKLTUDTCI4312-79-66 06:44:00 Test Item Value Reference Range Interpretation Comments INR (test code = INR) 1.12 0.85-1.17 [facility] TNZTIVA1261-07-25 06:44:00 Test Item Value Reference Range Interpretation Comments Antibody Scrn (test Negative (02/13/16 1:44 code = Antibody Scrn) AM) [facility] [employer] KCTEJFJ8048-52-47 06:44:00 Test Item Value Reference Range Interpretation Comments ABO/Rh (test code = ABO/Rh) A POS [facility] SFUQUEP9297-13-03 06:44:00 Test Item Value Reference Range Interpretation Comments CK MB Index (test 1.6 See_Comment [Automate d message] The code = CK MB Index) system w [facility] generated this result transmit gaye reference range : <=2.5. The reference range was not used to interpr et this result as satish l/abnormal. [employer] VESJWTS5047-43-11 06:44:00 Test Item Value Reference Range Interpretation Comments CK MB (test code = CK MB) 0.9 0.5-3.6 [facility] [employer] MPPDQME1411-31-37 06:44:00 Test Item Value Reference Range Interpretation Comments Total CK (test code = Total CK) 57 12-191 [facility] [employer] MGRSXSF8322-07-12 06:44:00 Test Item Value Reference Range Interpretation Comments Troponin-I (test code no gt See_Comment [Auto mated message] The = Troponin-I) system which g enerated this result transmit gaye reference range : <=0.40. The reference r ozzy was not used to interpr et this result as satish l/abnormal. [employer] PPZIW7097-60-93 06:44:00 Test Item Value Reference Range Interpretation Comments Albumin Lvl (test code = Albumin Lvl) 3.5 3.5-5.0 [facility] [employer] RXEUU2539-20-05 06:44:00 Test Item Value Reference Range Interpretation Comments Total Protein (test code = Total 7.0 6.4-8.4 Protein) [facility] [employer] OFXHQ9619-44-90 06:44:00 Test Item Value Reference Range Interpretation Comments ALT (test code = ALT) 19 See_Comment [Auto mated message] The system which ge nerated this result transmit gaye reference range : <=65. The reference range was not used to interpr et this result as satish l/abnormal. [employer] JPOGM7652-81-76 06:44:00 Test Item Value Reference Range Interpretation Comments AST (test code = AST) 10 See_Comment [Auto mated message] The system which ge nerated this result transmit gaye reference range : <=37. The reference range was not used to interpr et this result as satish l/abnormal. [facility]2016-07-03 06:44:00 Test Item Value Reference Range Interpretation Comments Alk Phos (test code = Alk Phos) 79 39-136 [facility]2016-07-03 06:44:00 Test Item Value Reference Range Interpretation Comments Bili Total (test code = Bili Total) 0.4 0.2-1.3 [place] 358136-07-03 06:44:00 Test Item Value Reference Range Interpretation Comments Bili Direct (test code 0.1 See_Comment [Aut omated message] The = Bili Direct) system which generated this result tra nsmitted reference range : <=0.3. The reference r ozzy was not used to int erpret this result as satish l/abnormal. [facility] CenterGreen[facility] RealityATRIUM HEALTH PROVIDENCEOSUYN6032-83-92 06:44:00 Test Item Value Reference Range Interpretation Comments Globulin (test code = Globulin) 3.5 2.0-4.0 [facility] CenterGreen[facility] RealityATRIUM HEALTH PROVIDENCEHALXR1475-64-31 06:44:00 Test Item Value Reference Range Interpretation Comments A/G Ratio (test code = A/G Ratio) 1.0 0.7-1.6 [facility]2016-07-03 06:44:00 Test Item Value Reference Range Interpretation Comments Bili Indirect (test 0.3 See_Comment [Automa gaye message] The code = Bili Indirect) system which generated this result tra nsmitted reference range : <=1.0. The reference r ozzy was not used to int erpret this result as normal/abnormal . [facility] CenterCARDFREE [id number] 06:44:00 Test Item Value Reference Range Interpretation Comments eGFR (test code = eGFR) 107 [facility]2016-07-03 06:44:00 Test Item Value Reference Range Interpretation Comments BUN (test code = BUN) 8 7-22 [place] 358136-07-03 06:44:00 Test Item Value Reference Range Interpretation Comments Glucose Lvl (test code = Glucose Lvl) 91 70-99 [facility]2016-07-03 06:44:00 Test Item Value Reference Range Interpretation Comments Sodium Lvl (test code = Sodium Lvl) 138 135-145 [facility]2016-07-03 06:44:00 Test Item Value Reference Range Interpretation Comments Creatinine Lvl (test code = Creatinine 0.70 0.50-1.40 Lvl) [facility]2016-07-03 06:44:00 Test Item Value Reference Range Interpretation Comments Potassium Lvl (test code = Potassium 3.3 3.5-5.1 Lvl) [facility]2016-07-03 06:44:00 Test Item Value Reference Range Interpretation Comments CO2 (test code = CO2) 25 24-32 [facility]2016-07-03 06:44:00 Test Item Value Reference Range Interpretation Comments Chloride Lvl (test code = Chloride Lvl) 106 95-109 [facility]2016-07-03 06:44:00 Test Item Value Reference Range Interpretation Comments Calcium Lvl (test code = Calcium Lvl) 8.1 8.5-10.5 [facility]2016-07-03 06:44:00 Test Item Value Reference Range Interpretation Comments AGAP (test code = AGAP) 10.3 10.0-20.0 [facility]2016-07-03 06:44:00 Test Item Value Reference Range Interpretation Comments Magnesium Lvl (test code = Magnesium 2.2 1.8-2.4 Lvl) [facility] CenterLoxppreRFRCLUEAYKGHQ8846-36-97 06:44:00 Test Item Value Reference Range Interpretation Comments S Preg (test code = S Negative *NA*(02/13/16 Preg) 1:44 AM) [facility] HospitalFezedakMIJMYHSLDT4670-59-06 06:44:00 Test Item Value Reference Range Interpretation Comments Basophils (test code = 0.1 See_Comment [Aut omated message] The Basophils) system which ge nerated this result tra nsmitted reference range : <=1.0. The reference r ozzy was not used to int erpret this result as normal/abnormal . [facility] HospitalFvvvsimKJIUNEIFAK6012-10-96 06:44:00 Test Item Value Reference Range Interpretation Comments Monocytes # (test code 0.3 See_Comment [Aut omated message] The = Monocytes #) system which generated this result tra nsmitted reference range : <=0.8. The reference r ozzy was not used to int erpret this result as normal/abnormal . [facility] KIFGZ1024-33-93 07:51:00 Test Item Value Reference Range Interpretation Comments Globulin (test code = Globulin) 3.9 2.0-4.0 [facility] [id number] 07:51:00 Test Item Value Reference Range Interpretation Comments A/G Ratio (test code = A/G Ratio) 0.9 0.7-1.6 [facility] CenterYplirhhFXURWVNAKUTDW2143-84-69 07:51:00 Test Item Value Reference Range Interpretation Comments hCG Tot (test code = hCG Tot) no gt [facility] HospitalSylwstwHADXPFAJHE3130-20-01 07:51:00 Test Item Value Reference Range Interpretation Comments MCHC (test code = MCHC) 33.8 32.0-36.0 [facility] HospitalWleiqrpCMHIAOSNMX9458-04-44 07:51:00 Test Item Value Reference Range Interpretation Comments MCH (test code = MCH) 30.3 pg 27.0-31.0 [facility] HospitalMadxwhtOYZTNDDVNQ0895-54-21 07:51:00 Test Item Value Reference Range Interpretation Comments RDW (test code = RDW) 13.0 11.5-14.5 [facility] HospitalArzzmlaLTEFQMRMJE9698-29-22 07:51:00 Test Item Value Reference Range Interpretation Comments MPV (test code = MPV) 8.4 7.4-10.4 [facility] HospitalJlfkmsaTWLTKTXXIJ7432-68-17 07:51:00 Test Item Value Reference Range Interpretation Comments Platelet (test code = Platelet) 356 133-450 [facility] HospitalPfswatgMPWHLOKKKP7550-09-48 07:51:00 Test Item Value Reference Range Interpretation Comments RBC (test code = RBC) 4.45 4.20-5.40 [facility] HospitalSxcwjbnBNQOCOYYAX8063-87-90 07:51:00 Test Item Value Reference Range Interpretation Comments WBC (test code = WBC) 12.9 3.7-10.4 [facility] HospitalAxitgnkHAUBWPGORD2545-84-77 07:51:00 Test Item Value Reference Range Interpretation Comments Hgb (test code = Hgb) 13.5 12.0-16.0 [facility] HospitalLxmddixAYMGQYLVYV4436-16-86 07:51:00 Test Item Value Reference Range Interpretation Comments MCV (test code = MCV) 89.7 80.0-98.0 [facility] HospitalYoruhgpBOTPZNISBS3652-67-40 07:51:00 Test Item Value Reference Range Interpretation Comments Hct (test code = Hct) 39.9 36.0-48.0 [facility] HospitalKidozkcQNOTHCUSJN2197-25-10 07:51:00 Test Item Value Reference Range Interpretation Comments Eosinophils # (test code 0.3 See_Comment [A utomated message] The = Eosinophils #) system whic h generated this result tra nsmitted reference range : <=0.5. The reference r ozzy was not used to int erpret this result as normal/abnormal . [facility] HospitalUlsvqfxNEUZGUZVTZ6620-63-47 07:51:00 Test Item Value Reference Range Interpretation Comments Lymphocytes # (test code = Lymphocytes 3.6 1.0-5.5 #) [facility] HospitalAzfwynyAYQXFKITXJ7270-57-53 07:51:00 Test Item Value Reference Range Interpretation Comments Monocytes # (test code 0.7 See_Comment [Aut omated message] The = Monocytes #) system which generated this result tra nsmitted reference range : <=0.8. The reference r ozzy was not used to int erpret this result as normal/abnormal . [facility] HospitalNenidieASNBHPUGKI1114-05-81 07:51:00 Test Item Value Reference Range Interpretation Comments Segs (test code = Segs) 63.9 45.0-75.0 [facility] HospitalYexfxzlAJEFTEMJFJ4603-01-20 07:51:00 Test Item Value Reference Range Interpretation Comments Segs-Bands # (test code = Segs-Bands #) 8.2 1.5-8.1 [facility] HospitalIlkfbgaUEJZAMPPHI3846-80-95 07:51:00 Test Item Value Reference Range Interpretation Comments Basophils (test code = 0.7 See_Comment [Aut omated message] The Basophils) system which ge nerated this result tra nsmitted reference range : <=1.0. The reference r ozzy was not used to int erpret this result as normal/abnormal . [facility] HospitalIbxbguxOGNKSKHCQC2596-36-65 07:51:00 Test Item Value Reference Range Interpretation Comments Monocytes (test code = Monocytes) 5.4 2.0-12.0 [facility] HospitalZkortedVICNQTBWAV3659-12-13 07:51:00 Test Item Value Reference Range Interpretation Comments Eosinophils (test code = 2.3 See_Comment [A utomated message] The Eosinophils) system which ge nerated this result tra nsmitted reference range : <=4.0. The reference r ozzy was not used to int erpret this result as normal/abnormal . [facility] HospitalKbzuvqmMDFVQGVIAQ3261-07-55 07:51:00 Test Item Value Reference Range Interpretation Comments Lymphocytes (test code = Lymphocytes) 27.7 20.0-40.0 [facility] HospitalCotkhejPLHSREZWVM5449-11-65 07:51:00 Test Item Value Reference Range Interpretation Comments Basophils # (test code 0.1 See_Comment [Aut omated message] The = Basophils #) system which generated this result tra nsmitted reference range : <=0.2. The reference r ozzy was not used to int erpret this result as normal/abnormal . [facility] AND [id number] 07:51:00 Test Item Value Reference Range Interpretation Comments UA Urobilinogen (test code = UA 1.0 0.1-1.0 Urobilinogen) [facility] AND [id number] 07:51:00 Test Item Value Reference Range Interpretation Comments UA Turbidity (test code Cloudy *ABN*(09/04/14 = UA Turbidity) 1:51 AM) [facility] AND [id number] 07:51:00 Test Item Value Reference Range Interpretation Comments UA Color (test code = Red *ABN*(09/04/14 1:51 UA Color) AM) [facility] AND [id number] 07:51:00 Test Item Value Reference Range Interpretation Comments UA Ketones (test code Negative *NA*(09/04/14 = UA Ketones) 1:51 AM) [facility] AND [id number] 07:51:00 Test Item Value Reference Range Interpretation Comments UA Glucose (test code Negative (09/04/14 1:51 = UA Glucose) AM) [facility] AND [id number] 07:51:00 Test Item Value Reference Range Interpretation Comments UA Protein (test code = Trace *ABN*(09/04/14 UA Protein) 1:51 AM) [facility] AND [id number] 07:51:00 Test Item Value Reference Range Interpretation Comments UA pH (test code = UA pH) 8.0 1 5.0-8.0 [facility] AND [id number] 07:51:00 Test Item Value Reference Range Interpretation Comments UA Spec Grav (test code = UA Spec 1.015 1 Grav) [facility] AND [id number] 07:51:00 Test Item Value Reference Range Interpretation Comments UA Bili (test code = Negative *NA*(09/04/14 UA Bili) 1:51 AM) [facility] AND [id number] 07:51:00 Test Item Value Reference Range Interpretation Comments UA Blood (test code = Large *ABN*(09/04/14 UA Blood) 1:51 AM) [facility] AND [id number] 07:51:00 Test Item Value Reference Range Interpretation Comments UA Leuk Est (test Negative (09/04/14 1:51 code = UA Leuk Est) AM) [facility] AND [id number] 07:51:00 Test Item Value Reference Range Interpretation Comments UA Nitrite (test code Negative (09/04/14 1:51 = UA Nitrite) AM) [facility] AND [id number] 07:51:00 Test Item Value Reference Range Interpretation Comments UA Amorph Joselin (test code = UA Few /HPF Amorph Joselin) [facility] AND [id number] 07:51:00 Test Item Value Reference Range Interpretation Comments UA RBC (test code 51-100 /HPF See_Comment [Automate d message] The = UA RBC) system which ge nerated this result tra nsmitted reference range : <=2. The reference r ozzy was not used to int erpret this result as normal/abnormal . [facility] AND [id number] 07:51:00 Test Item Value Reference Range Interpretation Comments UA WBC (test code = UA WBC) 6-10 /HPF [facility] AND [id number] 07:51:00 Test Item Value Reference Range Interpretation Comments UA Bacteria (test code = UA Few /HPF Bacteria) [facility] AND [id number] 07:51:00 Test Item Value Reference Range Interpretation Comments UA Sq Epi (test code = UA Sq Occasional /LPF Epi) [facility] [id number] 07:51:00 Test Item Value Reference Range Interpretation Comments ABO/Rh (test code = ABO/Rh) A POS [facility] [id number] 07:51:00 Test Item Value Reference Range Interpretation Comments Antibody Scrn (test Negative (09/04/14 1:51 code = Antibody Scrn) AM) [facility]2015-01-23 07:51:00 Test Item Value Reference Range Interpretation Comments Albumin Lvl (test code = Albumin Lvl) 3.4 3.5-5.0 [facility]2015-01-23 07:51:00 Test Item Value Reference Range Interpretation Comments Alk Phos (test code = Alk Phos) 64 39-136 [facility]2015-01-23 07:51:00 Test Item Value Reference Range Interpretation Comments ALT (test code = ALT) 18 See_Comment [Auto mated message] The system which ge nerated this result transmit gaye reference range : <=65. The reference range was not used to interpr et this result as satish l/abnormal. [facility] [id number] 07:51:00 Test Item Value Reference Range Interpretation Comments AST (test code = AST) 12 See_Comment [Auto mated message] The system which ge nerated this result transmit gaye reference range : <=37. The reference range was not used to interpr et this result as satish l/abnormal. [facility] [id number] 07:51:00 Test Item Value Reference Range Interpretation Comments eGFR (test code = eGFR) 93 [facility] [id number] 07:51:00 Test Item Value Reference Range Interpretation Comments Bili Total (test code = Bili Total) 0.3 0.2-1.3 [facility] [id number] 07:51:00 Test Item Value Reference Range Interpretation Comments Chloride Lvl (test code = Chloride Lvl) 108 95-109 [facility] [id number] 07:51:00 Test Item Value Reference Range Interpretation Comments Sodium Lvl (test code = Sodium Lvl) 138 135-145 [facility] [id number] 07:51:00 Test Item Value Reference Range Interpretation Comments Potassium Lvl (test code = Potassium 3.9 3.5-5.1 Lvl) [facility] [id number] 07:51:00 Test Item Value Reference Range Interpretation Comments CO2 (test code = CO2) 22 24-32 [facility]2015-01-23 07:51:00 Test Item Value Reference Range Interpretation Comments Calcium Lvl (test code = Calcium Lvl) 8.8 8.5-10.5 [facility]2015-01-23 07:51:00 Test Item Value Reference Range Interpretation Comments Glucose Lvl (test code = Glucose Lvl) 98 70-99 [facility]2015-01-23 07:51:00 Test Item Value Reference Range Interpretation Comments Total Protein (test code = Total 7.3 6.4-8.4 Protein) [facility]2015-01-23 07:51:00 Test Item Value Reference Range Interpretation Comments BUN (test code = BUN) 12 7- [facility]2015-01-23 07:51:00 Test Item Value Reference Range Interpretation Comments Creatinine Lvl (test code = Creatinine 0.8 0.5-1.4 Lvl) [facility]2015-01-23 07:51:00 Test Item Value Reference Range Interpretation Comments AGAP (test code = AGAP) 11.9 10.0-20.0 [facility]2015-01-23 07:51:00 Test Item Value Reference Range Interpretation Comments B/C Ratio (test code = B/C Ratio) 15 6-25 [facility]2015-01-23 07:51:00 Test Item Value Reference Range Interpretation Comments Globulin (test code = Globulin) 3.9 2.0-4.0 [facility]2015-01-23 07:51:00 Test Item Value Reference Range Interpretation Comments A/G Ratio (test code = A/G Ratio) 0.9 0.7-1.6 [facility]NpginwgFRPLLDFOAVXIU6168-39-49 07:51:00 Test Item Value Reference Range Interpretation Comments hCG Tot (test code = hCG Tot) no gt [facility]it[facility]wVJUUMNPDNP7373-81-28 07:51:00 Test Item Value Reference Range Interpretation Comments MCHC (test code = MCHC) 33.8 32.0-36.0 [facility]KovufhoUVOHUYBHTZ1509-36-23 07:51:00 Test Item Value Reference Range Interpretation Comments MCH (test code = MCH) 30.3 pg 27.0-31.0 [facility] HospitalMwyxjroQCWSRQOBCV0392-34-17 07:51:00 Test Item Value Reference Range Interpretation Comments RDW (test code = RDW) 13.0 11.5-14.5 [facility] HospitalGsbsheaWCLVVGYFSE2824-22-87 07:51:00 Test Item Value Reference Range Interpretation Comments MPV (test code = MPV) 8.4 7.4-10.4 [facility] HospitalFbzncxnGFRQFQFPBS5365-37-42 07:51:00 Test Item Value Reference Range Interpretation Comments Platelet (test code = Platelet) 356 133-450 [facility] HospitalDifatwdCTBOQTRJXX4441-30-33 07:51:00 Test Item Value Reference Range Interpretation Comments RBC (test code = RBC) 4.45 4.20-5.40 [facility] HospitalGmxcabjATMUGIIPEP9122-10-27 07:51:00 Test Item Value Reference Range Interpretation Comments WBC (test code = WBC) 12.9 3.7-10.4 [facility] HospitalMkwtaigEILQDYVXKB9624-07-63 07:51:00 Test Item Value Reference Range Interpretation Comments Hgb (test code = Hgb) 13.5 12.0-16.0 [facility] HospitalNzaeezbIFOUOQAJZD3005-57-84 07:51:00 Test Item Value Reference Range Interpretation Comments MCV (test code = MCV) 89.7 80.0-98.0 [facility] HospitalCtkqgybEQQMKXDSMJ0363-50-55 07:51:00 Test Item Value Reference Range Interpretation Comments Hct (test code = Hct) 39.9 36.0-48.0 [facility] HospitalSrjteecVAGQDRWCUT4839-34-70 07:51:00 Test Item Value Reference Range Interpretation Comments Eosinophils # (test code 0.3 See_Comment [A utomated message] The = Eosinophils #) system whic h generated this result tra nsmitted reference range : <=0.5. The reference r ozzy was not used to int erpret this result as normal/abnormal . [facility] HospitalLxzcsvyWOSHMWHORI1496-97-67 07:51:00 Test Item Value Reference Range Interpretation Comments Lymphocytes # (test code = Lymphocytes 3.6 1.0-5.5 #) [facility] HospitalCzkbiqsIVDHWYLHCV0812-03-38 07:51:00 Test Item Value Reference Range Interpretation Comments Monocytes # (test code 0.7 See_Comment [Aut omated message] The = Monocytes #) system which generated this result tra nsmitted reference range : <=0.8. The reference r ozzy was not used to int erpret this result as normal/abnormal . [facility] HospitalXvbrubnRIQBPVLNJU3854-67-92 07:51:00 Test Item Value Reference Range Interpretation Comments Segs (test code = Segs) 63.9 45.0-75.0 [facility] HospitalJrkrazeDGNLVXNKVZ5011-60-89 07:51:00 Test Item Value Reference Range Interpretation Comments Segs-Bands # (test code = Segs-Bands #) 8.2 1.5-8.1 [facility] HospitalHjauvmoSVLSXGPLPZ8576-48-09 07:51:00 Test Item Value Reference Range Interpretation Comments Basophils (test code = 0.7 See_Comment [Aut omated message] The Basophils) system which ge nerated this result tra nsmitted reference range : <=1.0. The reference r ozzy was not used to int erpret this result as normal/abnormal . [facility] HospitalRcvfwvpLQVPIDTCCC0343-15-99 07:51:00 Test Item Value Reference Range Interpretation Comments Monocytes (test code = Monocytes) 5.4 2.0-12.0 [facility] HospitalUrtikwkVQAVNYMWXF8106-32-75 07:51:00 Test Item Value Reference Range Interpretation Comments Eosinophils (test code = 2.3 See_Comment [A utomated message] The Eosinophils) system which ge nerated this result tra nsmitted reference range : <=4.0. The reference r ozzy was not used to int erpret this result as normal/abnormal . [facility] HospitalYtnuynwTQUMGBDKLL4123-41-27 07:51:00 Test Item Value Reference Range Interpretation Comments Lymphocytes (test code = Lymphocytes) 27.7 20.0-40.0 [facility] HospitalIgmoqguPRPIGYOLMN7094-83-96 07:51:00 Test Item Value Reference Range Interpretation Comments Basophils # (test code 0.1 See_Comment [Aut omated message] The = Basophils #) system which generated this result tra nsmitted reference range : <=0.2. The reference r ozzy was not used to int erpret this result as normal/abnormal . [facility]2015-01-23 07:51:00 Test Item Value Reference Range Interpretation Comments UA Urobilinogen (test code = UA 1.0 0.1-1.0 Urobilinogen) [facility]2015-01-23 07:51:00 Test Item Value Reference Range Interpretation Comments UA Turbidity (test code Cloudy *ABN*(09/04/14 = UA Turbidity) 1:51 AM) [facility] AND [id number] 07:51:00 Test Item Value Reference Range Interpretation Comments UA Color (test code = Red *ABN*(09/04/14 1:51 UA Color) AM) [facility] AND [id number] 07:51:00 Test Item Value Reference Range Interpretation Comments UA Ketones (test code Negative *NA*(09/04/14 = UA Ketones) 1:51 AM) [facility] AND [id number] 07:51:00 Test Item Value Reference Range Interpretation Comments UA Glucose (test code Negative (09/04/14 1:51 = UA Glucose) AM) [facility] AND [id number] 07:51:00 Test Item Value Reference Range Interpretation Comments UA Protein (test code = Trace *ABN*(09/04/14 UA Protein) 1:51 AM) [facility] AND [id number] 07:51:00 Test Item Value Reference Range Interpretation Comments UA pH (test code = UA pH) 8.0 1 5.0-8.0 [facility] AND [id number] 07:51:00 Test Item Value Reference Range Interpretation Comments UA Spec Grav (test code = UA Spec 1.015 1 Grav) [facility] AND [id number] 07:51:00 Test Item Value Reference Range Interpretation Comments UA Bili (test code = Negative *NA*(09/04/14 UA Bili) 1:51 AM) [facility] AND [id number] 07:51:00 Test Item Value Reference Range Interpretation Comments UA Blood (test code = Large *ABN*(09/04/14 UA Blood) 1:51 AM) [facility] AND [id number] 07:51:00 Test Item Value Reference Range Interpretation Comments UA Leuk Est (test Negative (09/04/14 1:51 code = UA Leuk Est) AM) [facility] AND [id number] 07:51:00 Test Item Value Reference Range Interpretation Comments UA Nitrite (test code Negative (09/04/14 1:51 = UA Nitrite) AM) [facility] [id number] 07:51:00 Test Item Value Reference Range Interpretation Comments UA Amorph Joselin (test code = UA Few /HPF Amorph Joselin) [facility] [id number] 07:51:00 Test Item Value Reference Range Interpretation Comments UA RBC (test code 51-100 /HPF See_Comment [Automate d message] The = UA RBC) system which ge nerated this result tra nsmitted reference range : <=2. The reference r ozzy was not used to int erpret this result as normal/abnormal . [facility] [id number] 07:51:00 Test Item Value Reference Range Interpretation Comments UA WBC (test code = UA WBC) 6-10 /HPF [facility] [id number] 07:51:00 Test Item Value Reference Range Interpretation Comments UA Bacteria (test code = UA Few /HPF Bacteria) [facility] [id number] 07:51:00 Test Item Value Reference Range Interpretation Comments UA Sq Epi (test code = UA Sq Occasional /LPF Epi) [facility] [employer] [id number] 07:51:00 Test Item Value Reference Range Interpretation Comments ABO/Rh (test code = ABO/Rh) A POS [facility] [employer] [id number] 07:51:00 Test Item Value Reference Range Interpretation Comments Antibody Scrn (test Negative (09/04/14 1:51 code = Antibody Scrn) AM) [facility] [employer] [id number] 07:51:00 Test Item Value Reference Range Interpretation Comments Albumin Lvl (test code = Albumin Lvl) 3.4 3.5-5.0 [facility] [employer] [id number] 07:51:00 Test Item Value Reference Range Interpretation Comments Alk Phos (test code = Alk Phos) 64 39-136 [facility] [employer] [id number] 07:51:00 Test Item Value Reference Range Interpretation Comments ALT (test code = ALT) 18 See_Comment [Auto mated message] The system which ge nerated this result transmit gaye reference range : <=65. The reference range was not used to interpr et this result as satish l/abnormal. [employer] [id number] 07:51:00 Test Item Value Reference Range Interpretation Comments AST (test code = AST) 12 See_Comment [Auto mated message] The system which ge nerated this result transmit gaye reference range : <=37. The reference range was not used to interpr et this result as satish l/abnormal. [facility]2015-01-23 07:51:00 Test Item Value Reference Range Interpretation Comments eGFR (test code = eGFR) 93 [facility]2015-01-23 07:51:00 Test Item Value Reference Range Interpretation Comments Bili Total (test code = Bili Total) 0.3 0.2-1.3 [facility]2015-01-23 07:51:00 Test Item Value Reference Range Interpretation Comments Chloride Lvl (test code = Chloride Lvl) 108 95-109 [facility]2015-01-23 07:51:00 Test Item Value Reference Range Interpretation Comments Sodium Lvl (test code = Sodium Lvl) 138 135-145 [facility]2015-01-23 07:51:00 Test Item Value Reference Range Interpretation Comments Potassium Lvl (test code = Potassium 3.9 3.5-5.1 Lvl) [facility]2015-01-23 07:51:00 Test Item Value Reference Range Interpretation Comments CO2 (test code = CO2) 22 24-32 [facility]2015-01-23 07:51:00 Test Item Value Reference Range Interpretation Comments Calcium Lvl (test code = Calcium Lvl) 8.8 8.5-10.5 [facility]2015-01-23 07:51:00 Test Item Value Reference Range Interpretation Comments Glucose Lvl (test code = Glucose Lvl) 98 70-99 [facility]2015-01-23 07:51:00 Test Item Value Reference Range Interpretation Comments Total Protein (test code = Total 7.3 6.4-8.4 Protein) [facility]2015-01-23 07:51:00 Test Item Value Reference Range Interpretation Comments BUN (test code = BUN) 12 7-22 [facility]2015-01-23 07:51:00 Test Item Value Reference Range Interpretation Comments Creatinine Lvl (test code = Creatinine 0.8 0.5-1.4 Lvl) [facility]2015-01-23 07:51:00 Test Item Value Reference Range Interpretation Comments AGAP (test code = AGAP) 11.9 10.0-20.0 [facility]2015-01-23 07:51:00 Test Item Value Reference Range Interpretation Comments B/C Ratio (test code = B/C Ratio) 15 6-25 [facility]2015-01-23 07:51:00 Test Item Value Reference Range Interpretation Comments Globulin (test code = Globulin) 3.9 2.0-4.0 [facility]2015-01-23 07:51:00 Test Item Value Reference Range Interpretation Comments A/G Ratio (test code = A/G Ratio) 0.9 0.7-1.6 [facility]xhqfrlZPOMQUDXNGXHK9400-82-01 07:51:00 Test Item Value Reference Range Interpretation Comments hCG Tot (test code = hCG Tot) no gt [facility] HospitalUuzvziyVRKVVDESOF5300-01-68 07:51:00 Test Item Value Reference Range Interpretation Comments MCHC (test code = MCHC) 33.8 32.0-36.0 [facility] HospitalThtpaokSBBYDPFKOE2380-64-76 07:51:00 Test Item Value Reference Range Interpretation Comments MCH (test code = MCH) 30.3 pg 27.0-31.0 [facility] HospitalYbcxsszDFDHHGONOW0884-49-46 07:51:00 Test Item Value Reference Range Interpretation Comments RDW (test code = RDW) 13.0 11.5-14.5 [facility] HospitalVemnukrLNWNKDORYO3830-14-98 07:51:00 Test Item Value Reference Range Interpretation Comments MPV (test code = MPV) 8.4 7.4-10.4 [facility] HospitalLpggbmxBYZPXZDKEC3016-74-98 07:51:00 Test Item Value Reference Range Interpretation Comments Platelet (test code = Platelet) 356 133-450 [facility] HospitalJsdvhbeFYIITGQGGA6318-55-30 07:51:00 Test Item Value Reference Range Interpretation Comments RBC (test code = RBC) 4.45 4.20-5.40 [facility] HospitalTlvlchyZYRSEOBAZO4397-58-61 07:51:00 Test Item Value Reference Range Interpretation Comments WBC (test code = WBC) 12.9 3.7-10.4 [facility] HospitalRqbpqnjADRCBXXYCK9792-42-61 07:51:00 Test Item Value Reference Range Interpretation Comments Hgb (test code = Hgb) 13.5 12.0-16.0 [facility] HospitalWjwxzkyKRDSLWSSMT7259-96-15 07:51:00 Test Item Value Reference Range Interpretation Comments MCV (test code = MCV) 89.7 80.0-98.0 [facility] HospitalBwnbhdsJPFAHWUQHD9012-38-47 07:51:00 Test Item Value Reference Range Interpretation Comments Hct (test code = Hct) 39.9 36.0-48.0 [facility] HospitalJhtrfvmRTCIRZWMGL3462-77-88 07:51:00 Test Item Value Reference Range Interpretation Comments Eosinophils # (test code 0.3 See_Comment [A utomated message] The = Eosinophils #) system whic h generated this result tra nsmitted reference range : <=0.5. The reference r ozzy was not used to int erpret this result as normal/abnormal . [facility] HospitalSkvnxtkSXJILTRDMA9958-23-59 07:51:00 Test Item Value Reference Range Interpretation Comments Lymphocytes # (test code = Lymphocytes 3.6 1.0-5.5 #) [facility] HospitalWldzcnoJZSDLUXPDO9881-35-16 07:51:00 Test Item Value Reference Range Interpretation Comments Monocytes # (test code 0.7 See_Comment [Aut omated message] The = Monocytes #) system which generated this result tra nsmitted reference range : <=0.8. The reference r ozzy was not used to int erpret this result as normal/abnormal . [facility] HospitalHgdxwqkRQLTDFJRZM7082-71-40 07:51:00 Test Item Value Reference Range Interpretation Comments Segs (test code = Segs) 63.9 45.0-75.0 [facility] HospitalWqcabwfNACXPIYSGF9954-40-16 07:51:00 Test Item Value Reference Range Interpretation Comments Segs-Bands # (test code = Segs-Bands #) 8.2 1.5-8.1 [facility] HospitalIscqdxeFLEFSVHJDE8669-53-42 07:51:00 Test Item Value Reference Range Interpretation Comments Basophils (test code = 0.7 See_Comment [Aut omated message] The Basophils) system which ge nerated this result tra nsmitted reference range : <=1.0. The reference r ozzy was not used to int erpret this result as normal/abnormal . [facility] HospitalUnbomsfBTDIWVVKOG1026-41-44 07:51:00 Test Item Value Reference Range Interpretation Comments Monocytes (test code = Monocytes) 5.4 2.0-12.0 [facility] HospitalAgnodxmFLOMIIYIPJ2433-78-34 07:51:00 Test Item Value Reference Range Interpretation Comments Eosinophils (test code = 2.3 See_Comment [A utomated message] The Eosinophils) system which ge nerated this result tra nsmitted reference range : <=4.0. The reference r ozzy was not used to int erpret this result as normal/abnormal . [facility] HospitalTwurhprHSBIOVJLTW8340-16-68 07:51:00 Test Item Value Reference Range Interpretation Comments Lymphocytes (test code = Lymphocytes) 27.7 20.0-40.0 [facility] HospitalDllkkjgBMCTFPEOHS3499-02-02 07:51:00 Test Item Value Reference Range Interpretation Comments Basophils # (test code 0.1 See_Comment [Aut omated message] The = Basophils #) system which generated this result tra nsmitted reference range : <=0.2. The reference r ozzy was not used to int erpret this result as normal/abnormal . [facility]2015-01-23 07:51:00 Test Item Value Reference Range Interpretation Comments UA Urobilinogen (test code = UA 1.0 0.1-1.0 Urobilinogen) [facility] AND [id number] 07:51:00 Test Item Value Reference Range Interpretation Comments UA Turbidity (test code Cloudy *ABN*(09/04/14 = UA Turbidity) 1:51 AM) [facility] AND [id number] 07:51:00 Test Item Value Reference Range Interpretation Comments UA Color (test code = Red *ABN*(09/04/14 1:51 UA Color) AM) [facility] AND [id number] 07:51:00 Test Item Value Reference Range Interpretation Comments UA Ketones (test code Negative *NA*(09/04/14 = UA Ketones) 1:51 AM) [facility] AND [id number] 07:51:00 Test Item Value Reference Range Interpretation Comments UA Glucose (test code Negative (09/04/14 1:51 = UA Glucose) AM) [facility] AND [id number] 07:51:00 Test Item Value Reference Range Interpretation Comments UA Protein (test code = Trace *ABN*(09/04/14 UA Protein) 1:51 AM) [facility] AND [id number] 07:51:00 Test Item Value Reference Range Interpretation Comments UA pH (test code = UA pH) 8.0 1 5.0-8.0 [facility] AND [id number] 07:51:00 Test Item Value Reference Range Interpretation Comments UA Spec Grav (test code = UA Spec 1.015 1 Grav) [facility] AND [id number] 07:51:00 Test Item Value Reference Range Interpretation Comments UA Bili (test code = Negative *NA*(09/04/14 UA Bili) 1:51 AM) [facility] AND [id number] 07:51:00 Test Item Value Reference Range Interpretation Comments UA Blood (test code = Large *ABN*(09/04/14 UA Blood) 1:51 AM) [facility] AND [id number] 07:51:00 Test Item Value Reference Range Interpretation Comments UA Leuk Est (test Negative (09/04/14 1:51 code = UA Leuk Est) AM) [facility] AND [id number] 07:51:00 Test Item Value Reference Range Interpretation Comments UA Nitrite (test code Negative (09/04/14 1:51 = UA Nitrite) AM) [facility] AND [id number] 07:51:00 Test Item Value Reference Range Interpretation Comments UA Amorph Joselin (test code = UA Few /HPF Amorph Joselin) [facility] AND [id number] 07:51:00 Test Item Value Reference Range Interpretation Comments UA RBC (test code 51-100 /HPF See_Comment [Automate d message] The = UA RBC) system which ge nerated this result tra nsmitted reference range : <=2. The reference r ozzy was not used to int erpret this result as normal/abnormal . [facility] AND [id number] 07:51:00 Test Item Value Reference Range Interpretation Comments UA WBC (test code = UA WBC) 6-10 /HPF [facility] AND [id number] 07:51:00 Test Item Value Reference Range Interpretation Comments UA Bacteria (test code = UA Few /HPF Bacteria) [facility] AND [id number] 07:51:00 Test Item Value Reference Range Interpretation Comments UA Sq Epi (test code = UA Sq Occasional /LPF Epi) [facility] [employer] [id number] 07:51:00 Test Item Value Reference Range Interpretation Comments ABO/Rh (test code = ABO/Rh) A POS [facility] [employer] [id number] 07:51:00 Test Item Value Reference Range Interpretation Comments Antibody Scrn (test Negative (09/04/14 1:51 code = Antibody Scrn) AM) [facility] [employer] [id number] 07:51:00 Test Item Value Reference Range Interpretation Comments Albumin Lvl (test code = Albumin Lvl) 3.4 3.5-5.0 [facility] [employer]2015-01-23 07:51:00 Test Item Value Reference Range Interpretation Comments Alk Phos (test code = Alk Phos) 64 39-136 [facility] [employer] [id number] 07:51:00 Test Item Value Reference Range Interpretation Comments ALT (test code = ALT) 18 See_Comment [Auto mated message] The system which ge nerated this result transmit gaye reference range : <=65. The reference range was not used to interpr et this result as satish l/abnormal. [facility] [employer]2015-01-23 07:51:00 Test Item Value Reference Range Interpretation Comments AST (test code = AST) 12 See_Comment [Auto mated message] The system which ge nerated this result transmit gaye reference range : <=37. The reference range was not used to interpr et this result as satish l/abnormal. [facility] [employer] [id number] 07:51:00 Test Item Value Reference Range Interpretation Comments eGFR (test code = eGFR) 93 [facility] [employer] [id number] 07:51:00 Test Item Value Reference Range Interpretation Comments Bili Total (test code = Bili Total) 0.3 0.2-1.3 [facility] [employer] [id number] 07:51:00 Test Item Value Reference Range Interpretation Comments Chloride Lvl (test code = Chloride Lvl) 108 95-109 [facility] [employer] [id number] 07:51:00 Test Item Value Reference Range Interpretation Comments Sodium Lvl (test code = Sodium Lvl) 138 135-145 [facility] [employer] [id number] 07:51:00 Test Item Value Reference Range Interpretation Comments Potassium Lvl (test code = Potassium 3.9 3.5-5.1 Lvl) [facility]2015-01-23 07:51:00 Test Item Value Reference Range Interpretation Comments CO2 (test code = CO2) 22 24-32 [facility]2015-01-23 07:51:00 Test Item Value Reference Range Interpretation Comments Calcium Lvl (test code = Calcium Lvl) 8.8 8.5-10.5 [facility]2015-01-23 07:51:00 Test Item Value Reference Range Interpretation Comments Glucose Lvl (test code = Glucose Lvl) 98 70-99 [facility]2015-01-23 07:51:00 Test Item Value Reference Range Interpretation Comments Total Protein (test code = Total 7.3 6.4-8.4 Protein) [facility]2015-01-23 07:51:00 Test Item Value Reference Range Interpretation Comments BUN (test code = BUN) 12 - [facility]2015-01-23 07:51:00 Test Item Value Reference Range Interpretation Comments Creatinine Lvl (test code = Creatinine 0.8 0.5-1.4 Lvl) [facility]2015-01-23 07:51:00 Test Item Value Reference Range Interpretation Comments AGAP (test code = AGAP) 11.9 10.0-20.0 [facility]2015-01-23 07:51:00 Test Item Value Reference Range Interpretation Comments B/C Ratio (test code = B/C Ratio) 15 6-25 [facility]2015-01-23 07:51:00 Test Item Value Reference Range Interpretation Comments Globulin (test code = Globulin) 3.9 2.0-4.0 [facility]2015-01-23 07:51:00 Test Item Value Reference Range Interpretation Comments A/G Ratio (test code = A/G Ratio) 0.9 0.7-1.6 [id number] 07:51:00 Test Item Value Reference Range Interpretation Comments hCG Tot (test code = hCG Tot) no gt [facility]HgrlohtNYCHEFCENR4310-01-15 07:51:00 Test Item Value Reference Range Interpretation Comments MCHC (test code = MCHC) 33.8 32.0-36.0 [facility] HospitalUvavekwSVDCWFIQIH4482-65-51 07:51:00 Test Item Value Reference Range Interpretation Comments MCH (test code = MCH) 30.3 pg 27.0-31.0 [facility] HospitalNsckrtlVWXVQKQNXV8817-28-87 07:51:00 Test Item Value Reference Range Interpretation Comments RDW (test code = RDW) 13.0 11.5-14.5 [facility] HospitalMgcbgmxSPAVTPEGOD1921-23-08 07:51:00 Test Item Value Reference Range Interpretation Comments MPV (test code = MPV) 8.4 7.4-10.4 [facility] HospitalBqnjerlNRJQDPGEHX5847-93-27 07:51:00 Test Item Value Reference Range Interpretation Comments Platelet (test code = Platelet) 356 133-450 [facility] HospitalRpeiqrnDJFEAAMCAV4160-56-96 07:51:00 Test Item Value Reference Range Interpretation Comments RBC (test code = RBC) 4.45 4.20-5.40 [facility] HospitalUyuxdsfOSTGJSLWAY4000-43-17 07:51:00 Test Item Value Reference Range Interpretation Comments WBC (test code = WBC) 12.9 3.7-10.4 [facility] HospitalVsngijhHYPXAQUXHS3275-96-68 07:51:00 Test Item Value Reference Range Interpretation Comments Hgb (test code = Hgb) 13.5 12.0-16.0 [facility] HospitalMctieekLZLGPFGPUA9344-36-67 07:51:00 Test Item Value Reference Range Interpretation Comments MCV (test code = MCV) 89.7 80.0-98.0 [facility] HospitalWtnjvkiJPKZLATSVF1997-86-68 07:51:00 Test Item Value Reference Range Interpretation Comments Hct (test code = Hct) 39.9 36.0-48.0 [facility] HospitalQgvsurlBPAQHIKYPS3828-15-78 07:51:00 Test Item Value Reference Range Interpretation Comments Eosinophils # (test code 0.3 See_Comment [A utomated message] The = Eosinophils #) system whic h generated this result tra nsmitted reference range : <=0.5. The reference r ozzy was not used to int erpret this result as normal/abnormal . [facility] HospitalUhykwfdGAWFCJBHVY3964-22-08 07:51:00 Test Item Value Reference Range Interpretation Comments Lymphocytes # (test code = Lymphocytes 3.6 1.0-5.5 #) [facility] HospitalQhcwzstAWTHLLVXVA4418-71-77 07:51:00 Test Item Value Reference Range Interpretation Comments Monocytes # (test code 0.7 See_Comment [Aut omated message] The = Monocytes #) system which generated this result tra nsmitted reference range : <=0.8. The reference r ozzy was not used to int erpret this result as normal/abnormal . [facility] HospitalSqpgqfbUSPXBQFYYY5682-36-47 07:51:00 Test Item Value Reference Range Interpretation Comments Segs (test code = Segs) 63.9 45.0-75.0 [facility] HospitalKofcqwwWIYFBLKYZK4851-36-93 07:51:00 Test Item Value Reference Range Interpretation Comments Segs-Bands # (test code = Segs-Bands #) 8.2 1.5-8.1 [facility] HospitalMfetukfZXATTDTPGK7464-41-91 07:51:00 Test Item Value Reference Range Interpretation Comments Basophils (test code = 0.7 See_Comment [Aut omated message] The Basophils) system which ge nerated this result tra nsmitted reference range : <=1.0. The reference r ozzy was not used to int erpret this result as normal/abnormal . [facility] HospitalHvvwegoKPYROROQOZ5828-81-28 07:51:00 Test Item Value Reference Range Interpretation Comments Monocytes (test code = Monocytes) 5.4 2.0-12.0 [facility] HospitalKdcpkryNEFDYVMCSG3832-25-01 07:51:00 Test Item Value Reference Range Interpretation Comments Eosinophils (test code = 2.3 See_Comment [A utomated message] The Eosinophils) system which ge nerated this result tra nsmitted reference range : <=4.0. The reference r ozzy was not used to int erpret this result as normal/abnormal . [facility] HospitalIednaguYMNPFHCBON2894-18-74 07:51:00 Test Item Value Reference Range Interpretation Comments Lymphocytes (test code = Lymphocytes) 27.7 20.0-40.0 [facility] HospitalFqycteeWREBLQSYJI5926-36-12 07:51:00 Test Item Value Reference Range Interpretation Comments Basophils # (test code 0.1 See_Comment [Aut omated message] The = Basophils #) system which generated this result tra nsmitted reference range : <=0.2. The reference r ozzy was not used to int erpret this result as normal/abnormal . [facility] [id number] 07:51:00 Test Item Value Reference Range Interpretation Comments UA Urobilinogen (test code = UA 1.0 0.1-1.0 Urobilinogen) [facility] AND [id number] 07:51:00 Test Item Value Reference Range Interpretation Comments UA Turbidity (test code Cloudy *ABN*(09/04/14 = UA Turbidity) 1:51 AM) [facility] AND [id number] 07:51:00 Test Item Value Reference Range Interpretation Comments UA Color (test code = Red *ABN*(09/04/14 1:51 UA Color) AM) [facility] AND [id number] 07:51:00 Test Item Value Reference Range Interpretation Comments UA Ketones (test code Negative *NA*(09/04/14 = UA Ketones) 1:51 AM) [facility] AND [id number] 07:51:00 Test Item Value Reference Range Interpretation Comments UA Glucose (test code Negative (09/04/14 1:51 = UA Glucose) AM) [facility] AND [id number] 07:51:00 Test Item Value Reference Range Interpretation Comments UA Protein (test code = Trace *ABN*(09/04/14 UA Protein) 1:51 AM) [facility] AND [id number] 07:51:00 Test Item Value Reference Range Interpretation Comments UA pH (test code = UA pH) 8.0 1 5.0-8.0 [facility] AND [id number] 07:51:00 Test Item Value Reference Range Interpretation Comments UA Spec Grav (test code = UA Spec 1.015 1 Grav) [facility] AND [id number] 07:51:00 Test Item Value Reference Range Interpretation Comments UA Bili (test code = Negative *NA*(09/04/14 UA Bili) 1:51 AM) [facility] AND [id number] 07:51:00 Test Item Value Reference Range Interpretation Comments UA Blood (test code = Large *ABN*(09/04/14 UA Blood) 1:51 AM) [facility] AND [id number] 07:51:00 Test Item Value Reference Range Interpretation Comments UA Leuk Est (test Negative (09/04/14 1:51 code = UA Leuk Est) AM) [facility] AND [id number] 07:51:00 Test Item Value Reference Range Interpretation Comments UA Nitrite (test code Negative (09/04/14 1:51 = UA Nitrite) AM) [facility] AND [id number] 07:51:00 Test Item Value Reference Range Interpretation Comments UA Amorph Joselin (test code = UA Few /HPF Amorph Joselin) [facility] AND [id number] 07:51:00 Test Item Value Reference Range Interpretation Comments UA RBC (test code 51-100 /HPF See_Comment [Automate d message] The = UA RBC) system which ge nerated this result tra nsmitted reference range : <=2. The reference r ozzy was not used to int erpret this result as normal/abnormal . [facility] AND [id number] 07:51:00 Test Item Value Reference Range Interpretation Comments UA WBC (test code = UA WBC) 6-10 /HPF [facility] AND [id number] 07:51:00 Test Item Value Reference Range Interpretation Comments UA Bacteria (test code = UA Few /HPF Bacteria) [facility] AND [id number] 07:51:00 Test Item Value Reference Range Interpretation Comments UA Sq Epi (test code = UA Sq Occasional /LPF Epi) [facility] [employer] [id number] 07:51:00 Test Item Value Reference Range Interpretation Comments ABO/Rh (test code = ABO/Rh) A POS [facility] [employer] [id number] 07:51:00 Test Item Value Reference Range Interpretation Comments Antibody Scrn (test Negative (09/04/14 1:51 code = Antibody Scrn) AM) [facility] [employer] [id number] 07:51:00 Test Item Value Reference Range Interpretation Comments Albumin Lvl (test code = Albumin Lvl) 3.4 3.5-5.0 [facility] [employer] [id number] 07:51:00 Test Item Value Reference Range Interpretation Comments Alk Phos (test code = Alk Phos) 64 39-136 [facility] [employer] [id number] 07:51:00 Test Item Value Reference Range Interpretation Comments ALT (test code = ALT) 18 See_Comment [Auto mated message] The system which ge nerated this result transmit gaye reference range : <=65. The reference range was not used to interpr et this result as satish l/abnormal. [facility] [id number] 07:51:00 Test Item Value Reference Range Interpretation Comments AST (test code = AST) 12 See_Comment [Auto mated message] The system which ge nerated this result transmit gaye reference range : <=37. The reference range was not used to interpr et this result as satish l/abnormal. [facility] [id number] 07:51:00 Test Item Value Reference Range Interpretation Comments eGFR (test code = eGFR) 93 [facility] [id number] 07:51:00 Test Item Value Reference Range Interpretation Comments Bili Total (test code = Bili Total) 0.3 0.2-1.3 [facility] [id number] 07:51:00 Test Item Value Reference Range Interpretation Comments Chloride Lvl (test code = Chloride Lvl) 108 95-109 [facility] [id number] 07:51:00 Test Item Value Reference Range Interpretation Comments Sodium Lvl (test code = Sodium Lvl) 138 135-145 [facility] [id number] 07:51:00 Test Item Value Reference Range Interpretation Comments Potassium Lvl (test code = Potassium 3.9 3.5-5.1 Lvl) [facility] [id number] 07:51:00 Test Item Value Reference Range Interpretation Comments CO2 (test code = CO2) 22 24-32 [facility] [id number] 07:51:00 Test Item Value Reference Range Interpretation Comments Calcium Lvl (test code = Calcium Lvl) 8.8 8.5-10.5 [facility] [id number] 07:51:00 Test Item Value Reference Range Interpretation Comments Glucose Lvl (test code = Glucose Lvl) 98 70-99 [facility] [id number] 07:51:00 Test Item Value Reference Range Interpretation Comments Total Protein (test code = Total 7.3 6.4-8.4 Protein) [facility] [id number] 07:51:00 Test Item Value Reference Range Interpretation Comments BUN (test code = BUN) 12 7-22 [facility]2015-01-23 07:51:00 Test Item Value Reference Range Interpretation Comments Creatinine Lvl (test code = Creatinine 0.8 0.5-1.4 Lvl) [facility]2015-01-23 07:51:00 Test Item Value Reference Range Interpretation Comments AGAP (test code = AGAP) 11.9 10.0-20.0 [facility]2015-01-23 07:51:00 Test Item Value Reference Range Interpretation Comments B/C Ratio (test code = B/C Ratio) 15 6-25 [facility]2015-01-23 07:51:00 Test Item Value Reference Range Interpretation Comments Globulin (test code = Globulin) 3.9 2.0-4.0 [facility]2015-01-23 07:51:00 Test Item Value Reference Range Interpretation Comments A/G Ratio (test code = A/G Ratio) 0.9 0.7-1.6 [facility]AMRKKKTVTDPDH3769-93-77 07:51:00 Test Item Value Reference Range Interpretation Comments hCG Tot (test code = hCG Tot) no gt [facility] HospitalOibhrtnADXFPKIEJM5375-49-11 07:51:00 Test Item Value Reference Range Interpretation Comments MCHC (test code = MCHC) 33.8 32.0-36.0 [facility] HospitalAlpddfoPKJJRMOWVA8246-17-36 07:51:00 Test Item Value Reference Range Interpretation Comments MCH (test code = MCH) 30.3 pg 27.0-31.0 [facility] HospitalTxnvsivLTOQIJSOFW3641-96-84 07:51:00 Test Item Value Reference Range Interpretation Comments RDW (test code = RDW) 13.0 11.5-14.5 [facility] HospitalQeulpdyIXGYJOPCJZ9547-00-04 07:51:00 Test Item Value Reference Range Interpretation Comments MPV (test code = MPV) 8.4 7.4-10.4 [facility] HospitalQdrkvetNRVXYOBFXK0466-48-90 07:51:00 Test Item Value Reference Range Interpretation Comments Platelet (test code = Platelet) 356 133-450 [facility] HospitalCkktncoHEWMIZDVWM7920-64-76 07:51:00 Test Item Value Reference Range Interpretation Comments RBC (test code = RBC) 4.45 4.20-5.40 [facility] HospitalRaqspscFHZOSRCLCF5582-03-45 07:51:00 Test Item Value Reference Range Interpretation Comments WBC (test code = WBC) 12.9 3.7-10.4 [facility] HospitalIjcpwmlSCWJLEYGOL4702-85-25 07:51:00 Test Item Value Reference Range Interpretation Comments Hgb (test code = Hgb) 13.5 12.0-16.0 [facility] HospitalPekyqumQTOLVNVVDN0318-11-71 07:51:00 Test Item Value Reference Range Interpretation Comments MCV (test code = MCV) 89.7 80.0-98.0 [facility] HospitalCietihjPYYVJTQZCJ4548-97-76 07:51:00 Test Item Value Reference Range Interpretation Comments Hct (test code = Hct) 39.9 36.0-48.0 [facility] HospitalKvqfhvjPSYFSHIYQD5576-55-09 07:51:00 Test Item Value Reference Range Interpretation Comments Eosinophils # (test code 0.3 See_Comment [A utomated message] The = Eosinophils #) system whic h generated this result tra nsmitted reference range : <=0.5. The reference r ozzy was not used to int erpret this result as normal/abnormal . [facility] HospitalImhnbxkOGLEEPPIUT8137-94-29 07:51:00 Test Item Value Reference Range Interpretation Comments Lymphocytes # (test code = Lymphocytes 3.6 1.0-5.5 #) [facility] HospitalAyqdstiDVAMONZOHZ1194-44-22 07:51:00 Test Item Value Reference Range Interpretation Comments Monocytes # (test code 0.7 See_Comment [Aut omated message] The = Monocytes #) system which generated this result tra nsmitted reference range : <=0.8. The reference r ozzy was not used to int erpret this result as normal/abnormal . [facility] HospitalMctbravNNDOFJUTKD0793-54-92 07:51:00 Test Item Value Reference Range Interpretation Comments Segs (test code = Segs) 63.9 45.0-75.0 [facility] HospitalCbmykhfUBRZTXIBIL0251-56-08 07:51:00 Test Item Value Reference Range Interpretation Comments Segs-Bands # (test code = Segs-Bands #) 8.2 1.5-8.1 [facility] HospitalPfndvpcOBQHUHJRLF7099-74-30 07:51:00 Test Item Value Reference Range Interpretation Comments Basophils (test code = 0.7 See_Comment [Aut omated message] The Basophils) system which ge nerated this result tra nsmitted reference range : <=1.0. The reference r ozzy was not used to int erpret this result as normal/abnormal . [facility] HospitalVufmunhANZIDBTQIZ1358-12-17 07:51:00 Test Item Value Reference Range Interpretation Comments Monocytes (test code = Monocytes) 5.4 2.0-12.0 [facility] Hospit[id number] 07:51:00 Test Item Value Reference Range Interpretation Comments Eosinophils (test code = 2.3 See_Comment [A utomated message] The Eosinophils) system which ge nerated this result tra nsmitted reference range : <=4.0. The reference r ozzy was not used to int erpret this result as normal/abnormal . [facility] HospitalWkcyclvFZGPWUQSEQ7911-29-89 07:51:00 Test Item Value Reference Range Interpretation Comments Lymphocytes (test code = Lymphocytes) 27.7 20.0-40.0 [facility] HospitalUvitxeaLRJLANWVFM0693-25-51 07:51:00 Test Item Value Reference Range Interpretation Comments Basophils # (test code 0.1 See_Comment [Aut omated message] The = Basophils #) system which generated this result tra nsmitted reference range : <=0.2. The reference r ozzy was not used to int erpret this result as normal/abnormal . [facility]2015-01-23 07:51:00 Test Item Value Reference Range Interpretation Comments UA Urobilinogen (test code = UA 1.0 0.1-1.0 Urobilinogen) [facility] [id number] 07:51:00 Test Item Value Reference Range Interpretation Comments UA Turbidity (test code Cloudy *ABN*(09/04/14 = UA Turbidity) 1:51 AM) [facility]2015-01-23 07:51:00 Test Item Value Reference Range Interpretation Comments UA Color (test code = Red *ABN*(09/04/14 1:51 UA Color) AM) [facility]2015-01-23 07:51:00 Test Item Value Reference Range Interpretation Comments UA Ketones (test code Negative *NA*(09/04/14 = UA Ketones) 1:51 AM) [facility]2015-01-23 07:51:00 Test Item Value Reference Range Interpretation Comments UA Glucose (test code Negative (09/04/14 1:51 = UA Glucose) AM) [facility] AND [id number] 07:51:00 Test Item Value Reference Range Interpretation Comments UA Protein (test code = Trace *ABN*(09/04/14 UA Protein) 1:51 AM) [facility] AND [id number] 07:51:00 Test Item Value Reference Range Interpretation Comments UA pH (test code = UA pH) 8.0 1 5.0-8.0 [facility] AND [id number] 07:51:00 Test Item Value Reference Range Interpretation Comments UA Spec Grav (test code = UA Spec 1.015 1 Grav) [facility] AND [id number] 07:51:00 Test Item Value Reference Range Interpretation Comments UA Bili (test code = Negative *NA*(09/04/14 UA Bili) 1:51 AM) [facility] AND [id number] 07:51:00 Test Item Value Reference Range Interpretation Comments UA Blood (test code = Large *ABN*(09/04/14 UA Blood) 1:51 AM) [facility] AND [id number] 07:51:00 Test Item Value Reference Range Interpretation Comments UA Leuk Est (test Negative (09/04/14 1:51 code = UA Leuk Est) AM) [facility] AND [id number] 07:51:00 Test Item Value Reference Range Interpretation Comments UA Nitrite (test code Negative (09/04/14 1:51 = UA Nitrite) AM) [facility] AND [id number] 07:51:00 Test Item Value Reference Range Interpretation Comments UA Amorph Joselin (test code = UA Few /HPF Amorph Joselin) [facility] AND [id number] 07:51:00 Test Item Value Reference Range Interpretation Comments UA RBC (test code 51-100 /HPF See_Comment [Automate d message] The = UA RBC) system which ge nerated this result tra nsmitted reference range : <=2. The reference r ozzy was not used to int erpret this result as normal/abnormal . [facility] AND [id number] 07:51:00 Test Item Value Reference Range Interpretation Comments UA WBC (test code = UA WBC) 6-10 /HPF [facility] AND [id number] 07:51:00 Test Item Value Reference Range Interpretation Comments UA Bacteria (test code = UA Few /HPF Bacteria) [facility] AND [id number] 07:51:00 Test Item Value Reference Range Interpretation Comments UA Sq Epi (test code = UA Sq Occasional /LPF Epi) [facility] [employer] [id number] 07:51:00 Test Item Value Reference Range Interpretation Comments ABO/Rh (test code = ABO/Rh) A POS [facility] [employer] [facility] [id number] 07:51:00 Test Item Value Reference Range Interpretation Comments Antibody Scrn (test Negative (09/04/14 1:51 code = Antibody Scrn) AM) [facility] [employer] [id number] 07:51:00 Test Item Value Reference Range Interpretation Comments Albumin Lvl (test code = Albumin Lvl) 3.4 3.5-5.0 [facility] [employer] [id number] 07:51:00 Test Item Value Reference Range Interpretation Comments Alk Phos (test code = Alk Phos) 64 39-136 [facility] [id number] 07:51:00 Test Item Value Reference Range Interpretation Comments ALT (test code = ALT) 18 See_Comment [Auto mated message] The system which ge nerated this result transmit gaye reference range : <=65. The reference range was not used to interpr et this result as satish l/abnormal. [facility] [employer] [id number] 07:51:00 Test Item Value Reference Range Interpretation Comments AST (test code = AST) 12 See_Comment [Auto mated message] The system which ge nerated this result transmit gaye reference range : <=37. The reference range was not used to interpr et this result as satish l/abnormal. [facility] [employer] [id number] 07:51:00 Test Item Value Reference Range Interpretation Comments eGFR (test code = eGFR) 93 [facility] [id number] 07:51:00 Test Item Value Reference Range Interpretation Comments Bili Total (test code = Bili Total) 0.3 0.2-1.3 [facility] [employer] [id number] 07:51:00 Test Item Value Reference Range Interpretation Comments Chloride Lvl (test code = Chloride Lvl) 108 95-109 [facility]2015-01-23 07:51:00 Test Item Value Reference Range Interpretation Comments Sodium Lvl (test code = Sodium Lvl) 138 135-145 [facility]2015-01-23 07:51:00 Test Item Value Reference Range Interpretation Comments Potassium Lvl (test code = Potassium 3.9 3.5-5.1 Lvl) [facility]2015-01-23 07:51:00 Test Item Value Reference Range Interpretation Comments CO2 (test code = CO2) 22 24-32 [facility]2015-01-23 07:51:00 Test Item Value Reference Range Interpretation Comments Calcium Lvl (test code = Calcium Lvl) 8.8 8.5-10.5 [facility]2015-01-23 07:51:00 Test Item Value Reference Range Interpretation Comments Glucose Lvl (test code = Glucose Lvl) 98 70-99 [facility]2015-01-23 07:51:00 Test Item Value Reference Range Interpretation Comments Total Protein (test code = Total 7.3 6.4-8.4 Protein) [facility]2015-01-23 07:51:00 Test Item Value Reference Range Interpretation Comments BUN (test code = BUN) 12 -22 [facility]2015-01-23 07:51:00 Test Item Value Reference Range Interpretation Comments Creatinine Lvl (test code = Creatinine 0.8 0.5-1.4 Lvl) [facility]2015-01-23 07:51:00 Test Item Value Reference Range Interpretation Comments AGAP (test code = AGAP) 11.9 10.0-20.0 [facility]2015-01-23 07:51:00 Test Item Value Reference Range Interpretation Comments B/C Ratio (test code = B/C Ratio) 15 6-25 [facility]2015-01-23 07:51:00 Test Item Value Reference Range Interpretation Comments Globulin (test code = Globulin) 3.9 2.0-4.0 [facility]2015-01-23 07:51:00 Test Item Value Reference Range Interpretation Comments A/G Ratio (test code = A/G Ratio) 0.9 0.7-1.6 [facility]by[facility]igIMNGEUIGNIESO7128-66-44 07:51:00 Test Item Value Reference Range Interpretation Comments hCG Tot (test code = hCG Tot) no gt [facility] HospitalKkplymuUSLLFJMAYG1381-37-90 07:51:00 Test Item Value Reference Range Interpretation Comments MCHC (test code = MCHC) 33.8 32.0-36.0 [facility] HospitalXxiiagfWVPQCDLFSW8073-34-98 07:51:00 Test Item Value Reference Range Interpretation Comments MCH (test code = MCH) 30.3 pg 27.0-31.0 [facility] HospitalCuhrqcgRIHYSTRGYI1678-08-21 07:51:00 Test Item Value Reference Range Interpretation Comments RDW (test code = RDW) 13.0 11.5-14.5 [facility] HospitalCsogwacIRAZXBSTHV4302-47-01 07:51:00 Test Item Value Reference Range Interpretation Comments MPV (test code = MPV) 8.4 7.4-10.4 [facility] HospitalGwfngjjQEGHBFUUCL3702-30-83 07:51:00 Test Item Value Reference Range Interpretation Comments Platelet (test code = Platelet) 356 133-450 [facility] HospitalCuzrdrhSUWEAIJBFT9232-55-02 07:51:00 Test Item Value Reference Range Interpretation Comments RBC (test code = RBC) 4.45 4.20-5.40 [facility] HospitalPxwpsutJOPHZCIHFC0527-46-43 07:51:00 Test Item Value Reference Range Interpretation Comments WBC (test code = WBC) 12.9 3.7-10.4 [facility] HospitalMsuazcbKNNHVXFOYC9180-66-25 07:51:00 Test Item Value Reference Range Interpretation Comments Hgb (test code = Hgb) 13.5 12.0-16.0 [facility] HospitalByhukaiDXIAZVEOAK9138-77-14 07:51:00 Test Item Value Reference Range Interpretation Comments MCV (test code = MCV) 89.7 80.0-98.0 [facility] HospitalCuoejdtSOWPUBELAM0254-89-38 07:51:00 Test Item Value Reference Range Interpretation Comments Hct (test code = Hct) 39.9 36.0-48.0 [facility] HospitalQerxyoxVHDNHBFSZV5655-69-25 07:51:00 Test Item Value Reference Range Interpretation Comments Eosinophils # (test code 0.3 See_Comment [A utomated message] The = Eosinophils #) system ic h generated this result tra nsmitted reference range : <=0.5. The reference r ozzy was not used to int erpret this result as normal/abnormal . [facility] HospitalMqgbojiSCWIEWQNDM1217-58-16 07:51:00 Test Item Value Reference Range Interpretation Comments Lymphocytes # (test code = Lymphocytes 3.6 1.0-5.5 #) [facility] HospitalUnsuslgREVBLRZDXE2424-09-68 07:51:00 Test Item Value Reference Range Interpretation Comments Monocytes # (test code 0.7 See_Comment [Aut omated message] The = Monocytes #) system which generated this result tra nsmitted reference range : <=0.8. The reference r ozzy was not used to int erpret this result as normal/abnormal . [facility] HospitalNlkzehnBQQYAQIPRQ5793-40-61 07:51:00 Test Item Value Reference Range Interpretation Comments Segs (test code = Segs) 63.9 45.0-75.0 [place] 716745-01-23 07:51:00 Test Item Value Reference Range Interpretation Comments Segs-Bands # (test code = Segs-Bands #) 8.2 1.5-8.1 [facility] HospitalRrvomtcQFKTPDTZME0314-92-32 07:51:00 Test Item Value Reference Range Interpretation Comments Basophils (test code = 0.7 See_Comment [Aut omated message] The Basophils) system which ge nerated this result tra nsmitted reference range : <=1.0. The reference r ozzy was not used to int erpret this result as normal/abnormal . [facility] HospitalVndwsinLFOARSFQYJ0643-25-13 07:51:00 Test Item Value Reference Range Interpretation Comments Monocytes (test code = Monocytes) 5.4 2.0-12.0 [facility] HospitalLfdoiuqWVHXEKEFJS9649-31-81 07:51:00 Test Item Value Reference Range Interpretation Comments Eosinophils (test code = 2.3 See_Comment [A utomated message] The Eosinophils) system which ge nerated this result tra nsmitted reference range : <=4.0. The reference r ozzy was not used to int erpret this result as normal/abnormal . [facility] HospitalLuipszqJRRWMMIQCT6031-12-18 07:51:00 Test Item Value Reference Range Interpretation Comments Lymphocytes (test code = Lymphocytes) 27.7 20.0-40.0 [facility] HospitalHmhijwnAYWWHCYKEK0571-80-79 07:51:00 Test Item Value Reference Range Interpretation Comments Basophils # (test code 0.1 See_Comment [Aut omated message] The = Basophils #) system which generated this result tra nsmitted reference range : <=0.2. The reference r ozzy was not used to int erpret this result as normal/abnormal . [facility] AND [id number] 07:51:00 Test Item Value Reference Range Interpretation Comments UA Urobilinogen (test code = UA 1.0 0.1-1.0 Urobilinogen) [facility] AND [id number] 07:51:00 Test Item Value Reference Range Interpretation Comments UA Turbidity (test code Cloudy *ABN*(09/04/14 = UA Turbidity) 1:51 AM) [facility] AND [id number] 07:51:00 Test Item Value Reference Range Interpretation Comments UA Color (test code = Red *ABN*(09/04/14 1:51 UA Color) AM) [facility] AND [id number] 07:51:00 Test Item Value Reference Range Interpretation Comments UA Ketones (test code Negative *NA*(09/04/14 = UA Ketones) 1:51 AM) [facility] AND [id number] 07:51:00 Test Item Value Reference Range Interpretation Comments UA Glucose (test code Negative (09/04/14 1:51 = UA Glucose) AM) [facility] AND [id number] 07:51:00 Test Item Value Reference Range Interpretation Comments UA Protein (test code = Trace *ABN*(09/04/14 UA Protein) 1:51 AM) [facility] AND [id number] 07:51:00 Test Item Value Reference Range Interpretation Comments UA pH (test code = UA pH) 8.0 1 5.0-8.0 [facility] AND [id number] 07:51:00 Test Item Value Reference Range Interpretation Comments UA Spec Grav (test code = UA Spec 1.015 1 Grav) [facility] AND [id number] 07:51:00 Test Item Value Reference Range Interpretation Comments UA Bili (test code = Negative *NA*(09/04/14 UA Bili) 1:51 AM) [facility] AND [id number] 07:51:00 Test Item Value Reference Range Interpretation Comments UA Blood (test code = Large *ABN*(09/04/14 UA Blood) 1:51 AM) [facility] AND [id number] 07:51:00 Test Item Value Reference Range Interpretation Comments UA Leuk Est (test Negative (09/04/14 1:51 code = UA Leuk Est) AM) [facility] AND [id number] 07:51:00 Test Item Value Reference Range Interpretation Comments UA Nitrite (test code Negative (09/04/14 1:51 = UA Nitrite) AM) [facility] AND [id number] 07:51:00 Test Item Value Reference Range Interpretation Comments UA Amorph Joselin (test code = UA Few /HPF Amorph Joselin) [facility] AND [id number] 07:51:00 Test Item Value Reference Range Interpretation Comments UA RBC (test code 51-100 /HPF See_Comment [Automate d message] The = UA RBC) system which ge nerated this result tra nsmitted reference range : <=2. The reference r ozzy was not used to int erpret this result as normal/abnormal . [facility] AND [id number] 07:51:00 Test Item Value Reference Range Interpretation Comments UA WBC (test code = UA WBC) 6-10 /HPF [facility] AND [id number] 07:51:00 Test Item Value Reference Range Interpretation Comments UA Bacteria (test code = UA Few /HPF Bacteria) [facility] AND [id number] 07:51:00 Test Item Value Reference Range Interpretation Comments UA Sq Epi (test code = UA Sq Occasional /LPF Epi) [facility] [employer] [id number] 07:51:00 Test Item Value Reference Range Interpretation Comments ABO/Rh (test code = ABO/Rh) A POS [facility] [employer] [id number] 07:51:00 Test Item Value Reference Range Interpretation Comments Antibody Scrn (test Negative (09/04/14 1:51 code = Antibody Scrn) AM) [facility] [employer] [id number] 07:51:00 Test Item Value Reference Range Interpretation Comments Albumin Lvl (test code = Albumin Lvl) 3.4 3.5-5.0 [facility] [employer] [id number] 07:51:00 Test Item Value Reference Range Interpretation Comments Alk Phos (test code = Alk Phos) 64 39-136 [facility]2015-01-23 07:51:00 Test Item Value Reference Range Interpretation Comments ALT (test code = ALT) 18 See_Comment [Auto mated message] The system which ge nerated this result transmit gaye reference range : <=65. The reference range was not used to interpr et this result as satish l/abnormal. [facility]2015-01-23 07:51:00 Test Item Value Reference Range Interpretation Comments AST (test code = AST) 12 See_Comment [Auto mated message] The system which ge nerated this result transmit gaye reference range : <=37. The reference range was not used to interpr et this result as satish l/abnormal. [facility]2015-01-23 07:51:00 Test Item Value Reference Range Interpretation Comments eGFR (test code = eGFR) 93 [facility]2015-01-23 07:51:00 Test Item Value Reference Range Interpretation Comments Bili Total (test code = Bili Total) 0.3 0.2-1.3 [place] [id number] 07:51:00 Test Item Value Reference Range Interpretation Comments Chloride Lvl (test code = Chloride Lvl) 108 95-109 [facility]2015-01-23 07:51:00 Test Item Value Reference Range Interpretation Comments Sodium Lvl (test code = Sodium Lvl) 138 135-145 [facility]2015-01-23 07:51:00 Test Item Value Reference Range Interpretation Comments Potassium Lvl (test code = Potassium 3.9 3.5-5.1 Lvl) [facility]2015-01-23 07:51:00 Test Item Value Reference Range Interpretation Comments CO2 (test code = CO2) 22 24-32 [facility]2015-01-23 07:51:00 Test Item Value Reference Range Interpretation Comments Calcium Lvl (test code = Calcium Lvl) 8.8 8.5-10.5 [facility]2015-01-23 07:51:00 Test Item Value Reference Range Interpretation Comments Glucose Lvl (test code = Glucose Lvl) 98 70-99 [facility]2015-01-23 07:51:00 Test Item Value Reference Range Interpretation Comments Total Protein (test code = Total 7.3 6.4-8.4 Protein) [facility]2015-01-23 07:51:00 Test Item Value Reference Range Interpretation Comments BUN (test code = BUN) 12 - [facility]2015-01-23 07:51:00 Test Item Value Reference Range Interpretation Comments Creatinine Lvl (test code = Creatinine 0.8 0.5-1.4 Lvl) [facility]2015-01-23 07:51:00 Test Item Value Reference Range Interpretation Comments AGAP (test code = AGAP) 11.9 10.0-20.0 [facility]2015-01-23 07:51:00 Test Item Value Reference Range Interpretation Comments B/C Ratio (test code = B/C Ratio) 15 - [facility]2015-01-23 07:51:00 Test Item Value Reference Range Interpretation Comments Globulin (test code = Globulin) 3.9 2.0-4.0 [facility]2015-01-23 07:51:00 Test Item Value Reference Range Interpretation Comments A/G Ratio (test code = A/G Ratio) 0.9 0.7-1.6 [facility] CenterH[id number] 07:51:00 Test Item Value Reference Range Interpretation Comments hCG Tot (test code = hCG Tot) no gt [facility] HospitalInktgwaJTBEAJQBIK6024-48-57 07:51:00 Test Item Value Reference Range Interpretation Comments MCHC (test code = MCHC) 33.8 32.0-36.0 [facility] HospitalZsdpqddCFIKCZWJEC4711-94-10 07:51:00 Test Item Value Reference Range Interpretation Comments MCH (test code = MCH) 30.3 pg 27.0-31.0 [facility] HospitalIagooeuQEJGTZTMRT0096-44-79 07:51:00 Test Item Value Reference Range Interpretation Comments RDW (test code = RDW) 13.0 11.5-14.5 [facility] HospitalBmooyyjKXYGICLVQF6652-45-46 07:51:00 Test Item Value Reference Range Interpretation Comments MPV (test code = MPV) 8.4 7.4-10.4 [facility] HospitalLdudurdOJRKKLCRQA9428-96-76 07:51:00 Test Item Value Reference Range Interpretation Comments Platelet (test code = Platelet) 356 133-450 [facility] HospitalAgwbzpjXURKIMGVIM0900-54-88 07:51:00 Test Item Value Reference Range Interpretation Comments RBC (test code = RBC) 4.45 4.20-5.40 [facility] HospitalEqomdunOTYGPGWCZA8148-54-98 07:51:00 Test Item Value Reference Range Interpretation Comments WBC (test code = WBC) 12.9 3.7-10.4 [facility] HospitalEpjocvwEPQSMOTXWL6804-25-21 07:51:00 Test Item Value Reference Range Interpretation Comments Hgb (test code = Hgb) 13.5 12.0-16.0 [facility] HospitalMyrgeykQOEIOESSIF2868-01-22 07:51:00 Test Item Value Reference Range Interpretation Comments MCV (test code = MCV) 89.7 80.0-98.0 [facility] HospitalSqtftxwEMUPGSTTUM9793-91-93 07:51:00 Test Item Value Reference Range Interpretation Comments Hct (test code = Hct) 39.9 36.0-48.0 [facility] HospitalEpmyfugIEKWXOPRDX8739-40-26 07:51:00 Test Item Value Reference Range Interpretation Comments Eosinophils # (test code 0.3 See_Comment [A utomated message] The = Eosinophils #) system whic h generated this result tra nsmitted reference range : <=0.5. The reference r ozzy was not used to int erpret this result as normal/abnormal . [facility] HospitalIpjescfGXDEYTVWGR8813-26-28 07:51:00 Test Item Value Reference Range Interpretation Comments Lymphocytes # (test code = Lymphocytes 3.6 1.0-5.5 #) [facility] HospitalNgyhcbyRXWKHXOHKD0859-58-91 07:51:00 Test Item Value Reference Range Interpretation Comments Monocytes # (test code 0.7 See_Comment [Aut omated message] The = Monocytes #) system which generated this result tra nsmitted reference range : <=0.8. The reference r ozzy was not used to int erpret this result as normal/abnormal . [facility] HospitalRqnsmzjEJMDTVNQWU9399-45-81 07:51:00 Test Item Value Reference Range Interpretation Comments Segs (test code = Segs) 63.9 45.0-75.0 [facility] HospitalXybixuqRTYXOUEYSM3727-24-63 07:51:00 Test Item Value Reference Range Interpretation Comments Segs-Bands # (test code = Segs-Bands #) 8.2 1.5-8.1 [facility] HospitalNcgrxakJWTBFMEZHS3516-23-64 07:51:00 Test Item Value Reference Range Interpretation Comments Basophils (test code = 0.7 See_Comment [Aut omated message] The Basophils) system which ge nerated this result tra nsmitted reference range : <=1.0. The reference r ozzy was not used to int erpret this result as normal/abnormal . [facility] HospitalAafjsfmEKOBJDNONM2055-24-01 07:51:00 Test Item Value Reference Range Interpretation Comments Monocytes (test code = Monocytes) 5.4 2.0-12.0 [facility] HospitalVtulgjtXYLVFBORLV7673-54-35 07:51:00 Test Item Value Reference Range Interpretation Comments Eosinophils (test code = 2.3 See_Comment [A utomated message] The Eosinophils) system which ge nerated this result tra nsmitted reference range : <=4.0. The reference r ozzy was not used to int erpret this result as normal/abnormal . [facility] HospitalGkdfvmfZXMZZAXNXN5029-92-70 07:51:00 Test Item Value Reference Range Interpretation Comments Lymphocytes (test code = Lymphocytes) 27.7 20.0-40.0 [facility] HospitalMetqvmnCTDLYALOJU1654-49-95 07:51:00 Test Item Value Reference Range Interpretation Comments Basophils # (test code 0.1 See_Comment [Aut omated message] The = Basophils #) system which generated this result tra nsmitted reference range : <=0.2. The reference r ozzy was not used to int erpret this result as normal/abnormal . [facility] AND [id number] 07:51:00 Test Item Value Reference Range Interpretation Comments UA Urobilinogen (test code = UA 1.0 0.1-1.0 Urobilinogen) [facility] AND [id number] 07:51:00 Test Item Value Reference Range Interpretation Comments UA Turbidity (test code Cloudy *ABN*(09/04/14 = UA Turbidity) 1:51 AM) [facility] AND [id number] 07:51:00 Test Item Value Reference Range Interpretation Comments UA Color (test code = Red *ABN*(09/04/14 1:51 UA Color) AM) [facility] AND [id number] 07:51:00 Test Item Value Reference Range Interpretation Comments UA Ketones (test code Negative *NA*(09/04/14 = UA Ketones) 1:51 AM) [facility] AND [id number] 07:51:00 Test Item Value Reference Range Interpretation Comments UA Glucose (test code Negative (09/04/14 1:51 = UA Glucose) AM) [facility] AND [id number] 07:51:00 Test Item Value Reference Range Interpretation Comments UA Protein (test code = Trace *ABN*(09/04/14 UA Protein) 1:51 AM) [facility] AND [id number] 07:51:00 Test Item Value Reference Range Interpretation Comments UA pH (test code = UA pH) 8.0 1 5.0-8.0 [facility] AND [id number] 07:51:00 Test Item Value Reference Range Interpretation Comments UA Spec Grav (test code = UA Spec 1.015 1 Grav) [facility] AND [id number] 07:51:00 Test Item Value Reference Range Interpretation Comments UA Bili (test code = Negative *NA*(09/04/14 UA Bili) 1:51 AM) [facility] AND [id number] 07:51:00 Test Item Value Reference Range Interpretation Comments UA Blood (test code = Large *ABN*(09/04/14 UA Blood) 1:51 AM) [facility] AND [id number] 07:51:00 Test Item Value Reference Range Interpretation Comments UA Leuk Est (test Negative (09/04/14 1:51 code = UA Leuk Est) AM) [facility] AND [id number] 07:51:00 Test Item Value Reference Range Interpretation Comments UA Nitrite (test code Negative (09/04/14 1:51 = UA Nitrite) AM) [facility] AND [id number] 07:51:00 Test Item Value Reference Range Interpretation Comments UA Amorph Joselin (test code = UA Few /HPF Amorph Joselin) [facility] AND [id number] 07:51:00 Test Item Value Reference Range Interpretation Comments UA RBC (test code 51-100 /HPF See_Comment [Automate d message] The = UA RBC) system which ge nerated this result tra nsmitted reference range : <=2. The reference r ozzy was not used to int erpret this result as normal/abnormal . [facility] AND [id number] 07:51:00 Test Item Value Reference Range Interpretation Comments UA WBC (test code = UA WBC) 6-10 /HPF [facility] AND [id number] 07:51:00 Test Item Value Reference Range Interpretation Comments UA Bacteria (test code = UA Few /HPF Bacteria) [facility] AND [id number] 07:51:00 Test Item Value Reference Range Interpretation Comments UA Sq Epi (test code = UA Sq Occasional /LPF Epi) [facility] [employer] [id number] 07:51:00 Test Item Value Reference Range Interpretation Comments ABO/Rh (test code = ABO/Rh) A POS [facility] [employer] [facility] [id number] 07:51:00 Test Item Value Reference Range Interpretation Comments Antibody Scrn (test Negative (09/04/14 1:51 code = Antibody Scrn) AM) [facility] [employer] [id number] 07:51:00 Test Item Value Reference Range Interpretation Comments Albumin Lvl (test code = Albumin Lvl) 3.4 3.5-5.0 [facility] [employer] [id number] 07:51:00 Test Item Value Reference Range Interpretation Comments Alk Phos (test code = Alk Phos) 64 39-136 [facility] [employer] [id number] 07:51:00 Test Item Value Reference Range Interpretation Comments ALT (test code = ALT) 18 See_Comment [Auto mated message] The system which ge nerated this result transmit gaye reference range : <=65. The reference range was not used to interpr et this result as satish l/abnormal. [facility] [employer] [id number] 07:51:00 Test Item Value Reference Range Interpretation Comments AST (test code = AST) 12 See_Comment [Auto mated message] The system which ge nerated this result transmit gaye reference range : <=37. The reference range was not used to interpr et this result as satish l/abnormal. [facility] [employer] [id number] 07:51:00 Test Item Value Reference Range Interpretation Comments eGFR (test code = eGFR) 93 [facility] [id number] 07:51:00 Test Item Value Reference Range Interpretation Comments Bili Total (test code = Bili Total) 0.3 0.2-1.3 [facility]2015-01-23 07:51:00 Test Item Value Reference Range Interpretation Comments Chloride Lvl (test code = Chloride Lvl) 108 95-109 [facility]2015-01-23 07:51:00 Test Item Value Reference Range Interpretation Comments Sodium Lvl (test code = Sodium Lvl) 138 135-145 [facility]2015-01-23 07:51:00 Test Item Value Reference Range Interpretation Comments Potassium Lvl (test code = Potassium 3.9 3.5-5.1 Lvl) [facility]2015-01-23 07:51:00 Test Item Value Reference Range Interpretation Comments CO2 (test code = CO2) 22 24-32 [facility]2015-01-23 07:51:00 Test Item Value Reference Range Interpretation Comments Calcium Lvl (test code = Calcium Lvl) 8.8 8.5-10.5 [facility]2015-01-23 07:51:00 Test Item Value Reference Range Interpretation Comments Glucose Lvl (test code = Glucose Lvl) 98 70-99 [facility]2015-01-23 07:51:00 Test Item Value Reference Range Interpretation Comments Total Protein (test code = Total 7.3 6.4-8.4 Protein) [facility]2015-01-23 07:51:00 Test Item Value Reference Range Interpretation Comments BUN (test code = BUN) 12 - [facility]2015-01-23 07:51:00 Test Item Value Reference Range Interpretation Comments Creatinine Lvl (test code = Creatinine 0.8 0.5-1.4 Lvl) [facility]2015-01-23 07:51:00 Test Item Value Reference Range Interpretation Comments AGAP (test code = AGAP) 11.9 10.0-20.0 [facility]2015-01-23 07:51:00 Test Item Value Reference Range Interpretation Comments B/C Ratio (test code = B/C Ratio) 15 6-25 [facility]2015-01-23 07:51:00 Test Item Value Reference Range Interpretation Comments Globulin (test code = Globulin) 3.9 2.0-4.0 [facility]2015-01-23 07:51:00 Test Item Value Reference Range Interpretation Comments A/G Ratio (test code = A/G Ratio) 0.9 0.7-1.6 [id number] 07:51:00 Test Item Value Reference Range Interpretation Comments hCG Tot (test code = hCG Tot) no gt [facility] HospitalMqbhjusPIOAMHBUWM9443-67-31 07:51:00 Test Item Value Reference Range Interpretation Comments MCHC (test code = MCHC) 33.8 32.0-36.0 [facility] HospitalEyouofrHTJIBOKWOU2615-06-04 07:51:00 Test Item Value Reference Range Interpretation Comments MCH (test code = MCH) 30.3 pg 27.0-31.0 [facility] HospitalPpatticAUXRTGGSWX6665-12-53 07:51:00 Test Item Value Reference Range Interpretation Comments RDW (test code = RDW) 13.0 11.5-14.5 [facility] HospitalSffmmirSGOJIFCSMH7140-22-84 07:51:00 Test Item Value Reference Range Interpretation Comments MPV (test code = MPV) 8.4 7.4-10.4 [facility] HospitalFwrhikpLSBAMCHRHS6574-09-49 07:51:00 Test Item Value Reference Range Interpretation Comments Platelet (test code = Platelet) 356 133-450 [facility] HospitalKywwrmuIAZVMEEOFV3833-20-72 07:51:00 Test Item Value Reference Range Interpretation Comments RBC (test code = RBC) 4.45 4.20-5.40 [facility] HospitalMwiajjjUZDESDYTFH1644-62-16 07:51:00 Test Item Value Reference Range Interpretation Comments WBC (test code = WBC) 12.9 3.7-10.4 [facility] HospitalSojjrodEIVBVJRLLM5135-56-63 07:51:00 Test Item Value Reference Range Interpretation Comments Hgb (test code = Hgb) 13.5 12.0-16.0 [facility] HospitalHbwszvmXGLSNODESP6496-69-25 07:51:00 Test Item Value Reference Range Interpretation Comments MCV (test code = MCV) 89.7 80.0-98.0 [facility] HospitalBcbtpnlRKUJSUCXSW1480-54-22 07:51:00 Test Item Value Reference Range Interpretation Comments Hct (test code = Hct) 39.9 36.0-48.0 [facility] Hospit[id number] 07:51:00 Test Item Value Reference Range Interpretation Comments Eosinophils # (test code 0.3 See_Comment [A utomated message] The = Eosinophils #) system whic h generated this result tra nsmitted reference range : <=0.5. The reference r ozzy was not used to int erpret this result as normal/abnormal . [facility] HospitalLorocmaTCMGDDQYZD9348-11-07 07:51:00 Test Item Value Reference Range Interpretation Comments Lymphocytes # (test code = Lymphocytes 3.6 1.0-5.5 #) [facility] HospitalIoyccagLNXCLCZBOV0688-96-65 07:51:00 Test Item Value Reference Range Interpretation Comments Monocytes # (test code 0.7 See_Comment [Aut omated message] The = Monocytes #) system which generated this result tra nsmitted reference range : <=0.8. The reference r ozzy was not used to int erpret this result as normal/abnormal . [facility] HospitalKicmkmkDOSJNMCGGY8144-08-85 07:51:00 Test Item Value Reference Range Interpretation Comments Segs (test code = Segs) 63.9 45.0-75.0 [facility] HospitalZqbmzywDMAPAURDGE4670-25-62 07:51:00 Test Item Value Reference Range Interpretation Comments Segs-Bands # (test code = Segs-Bands #) 8.2 1.5-8.1 [facility] HospitalHhhbfzxKZHKMJWMYE1187-68-64 07:51:00 Test Item Value Reference Range Interpretation Comments Basophils (test code = 0.7 See_Comment [Aut omated message] The Basophils) system which ge nerated this result tra nsmitted reference range : <=1.0. The reference r ozzy was not used to int erpret this result as normal/abnormal . [facility] HospitalQwuqobpJPMEZKABPV6111-52-29 07:51:00 Test Item Value Reference Range Interpretation Comments Monocytes (test code = Monocytes) 5.4 2.0-12.0 [facility] HospitalPiqvgeoOAISIKAJWG1185-34-84 07:51:00 Test Item Value Reference Range Interpretation Comments Eosinophils (test code = 2.3 See_Comment [A utomated message] The Eosinophils) system which ge nerated this result tra nsmitted reference range : <=4.0. The reference r ozzy was not used to int erpret this result as normal/abnormal . [facility] HospitalWwgtrfeRZUYTKKUOV5048-20-36 07:51:00 Test Item Value Reference Range Interpretation Comments Lymphocytes (test code = Lymphocytes) 27.7 20.0-40.0 [facility]tuygGCEUJOIGUB0771-76-16 07:51:00 Test Item Value Reference Range Interpretation Comments Basophils # (test code 0.1 See_Comment [Aut omated message] The = Basophils #) system which generated this result tra nsmitted reference range : <=0.2. The reference r ozzy was not used to int erpret this result as normal/abnormal . [facility] AND [id number] 07:51:00 Test Item Value Reference Range Interpretation Comments UA Urobilinogen (test code = UA 1.0 0.1-1.0 Urobilinogen) [facility] AND [id number] 07:51:00 Test Item Value Reference Range Interpretation Comments UA Turbidity (test code Cloudy *ABN*(09/04/14 = UA Turbidity) 1:51 AM) [facility] AND [id number] 07:51:00 Test Item Value Reference Range Interpretation Comments UA Color (test code = Red *ABN*(09/04/14 1:51 UA Color) AM) [facility] AND [id number] 07:51:00 Test Item Value Reference Range Interpretation Comments UA Ketones (test code Negative *NA*(09/04/14 = UA Ketones) 1:51 AM) [facility] AND [id number] 07:51:00 Test Item Value Reference Range Interpretation Comments UA Glucose (test code Negative (09/04/14 1:51 = UA Glucose) AM) [facility] AND [id number] 07:51:00 Test Item Value Reference Range Interpretation Comments UA Protein (test code = Trace *ABN*(09/04/14 UA Protein) 1:51 AM) [facility] AND [id number] 07:51:00 Test Item Value Reference Range Interpretation Comments UA pH (test code = UA pH) 8.0 1 5.0-8.0 [facility] AND [id number] 07:51:00 Test Item Value Reference Range Interpretation Comments UA Spec Grav (test code = UA Spec 1.015 1 Grav) [facility] AND [id number] 07:51:00 Test Item Value Reference Range Interpretation Comments UA Bili (test code = Negative *NA*(09/04/14 UA Bili) 1:51 AM) [facility] AND [id number] 07:51:00 Test Item Value Reference Range Interpretation Comments UA Blood (test code = Large *ABN*(09/04/14 UA Blood) 1:51 AM) [facility] AND [id number] 07:51:00 Test Item Value Reference Range Interpretation Comments UA Leuk Est (test Negative (09/04/14 1:51 code = UA Leuk Est) AM) [facility] AND [id number] 07:51:00 Test Item Value Reference Range Interpretation Comments UA Nitrite (test code Negative (09/04/14 1:51 = UA Nitrite) AM) [facility] AND [id number] 07:51:00 Test Item Value Reference Range Interpretation Comments UA Amorph Joselin (test code = UA Few /HPF Amorph Joselin) [facility] AND [id number] 07:51:00 Test Item Value Reference Range Interpretation Comments UA RBC (test code 51-100 /HPF See_Comment [Automate d message] The = UA RBC) system which ge nerated this result tra nsmitted reference range : <=2. The reference r ozzy was not used to int erpret this result as normal/abnormal . [facility] AND [id number] 07:51:00 Test Item Value Reference Range Interpretation Comments UA WBC (test code = UA WBC) 6-10 /HPF [facility] AND [id number] 07:51:00 Test Item Value Reference Range Interpretation Comments UA Bacteria (test code = UA Few /HPF Bacteria) [facility] AND [id number] 07:51:00 Test Item Value Reference Range Interpretation Comments UA Sq Epi (test code = UA Sq Occasional /LPF Epi) [facility] [employer] [id number] 07:51:00 Test Item Value Reference Range Interpretation Comments ABO/Rh (test code = ABO/Rh) A POS [facility] [employer] [id number] 07:51:00 Test Item Value Reference Range Interpretation Comments Antibody Scrn (test Negative (09/04/14 1:51 code = Antibody Scrn) AM) [facility] [employer] [id number] 07:51:00 Test Item Value Reference Range Interpretation Comments Albumin Lvl (test code = Albumin Lvl) 3.4 3.5-5.0 [facility]2015-01-23 07:51:00 Test Item Value Reference Range Interpretation Comments Alk Phos (test code = Alk Phos) 64 39-136 [facility]2015-01-23 07:51:00 Test Item Value Reference Range Interpretation Comments ALT (test code = ALT) 18 See_Comment [Auto mated message] The system which ge nerated this result transmit gaye reference range : <=65. The reference range was not used to interpr et this result as satish l/abnormal. [facility]2015-01-23 07:51:00 Test Item Value Reference Range Interpretation Comments AST (test code = AST) 12 See_Comment [Auto mated message] The system which ge nerated this result transmit gaye reference range : <=37. The reference range was not used to interpr et this result as satish l/abnormal. [facility]2015-01-23 07:51:00 Test Item Value Reference Range Interpretation Comments eGFR (test code = eGFR) 93 [facility]2015-01-23 07:51:00 Test Item Value Reference Range Interpretation Comments Bili Total (test code = Bili Total) 0.3 0.2-1.3 [facility]2015-01-23 07:51:00 Test Item Value Reference Range Interpretation Comments Chloride Lvl (test code = Chloride Lvl) 108 95-109 [facility]2015-01-23 07:51:00 Test Item Value Reference Range Interpretation Comments Sodium Lvl (test code = Sodium Lvl) 138 135-145 [facility]2015-01-23 07:51:00 Test Item Value Reference Range Interpretation Comments Potassium Lvl (test code = Potassium 3.9 3.5-5.1 Lvl) [facility]2015-01-23 07:51:00 Test Item Value Reference Range Interpretation Comments CO2 (test code = CO2) 22 24-32 [facility]2015-01-23 07:51:00 Test Item Value Reference Range Interpretation Comments Calcium Lvl (test code = Calcium Lvl) 8.8 8.5-10.5 [facility]2015-01-23 07:51:00 Test Item Value Reference Range Interpretation Comments Glucose Lvl (test code = Glucose Lvl) 98 70-99 [facility]2015-01-23 07:51:00 Test Item Value Reference Range Interpretation Comments Total Protein (test code = Total 7.3 6.4-8.4 Protein) [facility]2015-01-23 07:51:00 Test Item Value Reference Range Interpretation Comments BUN (test code = BUN) 12 7-22 [facility]2015-01-23 07:51:00 Test Item Value Reference Range Interpretation Comments Creatinine Lvl (test code = Creatinine 0.8 0.5-1.4 Lvl) [facility]2015-01-23 07:51:00 Test Item Value Reference Range Interpretation Comments AGAP (test code = AGAP) 11.9 10.0-20.0 [facility]2015-01-23 07:51:00 Test Item Value Reference Range Interpretation Comments B/C Ratio (test code = B/C Ratio) 15 6-25 [facility]2015-01-23 07:51:00 Test Item Value Reference Range Interpretation Comments Globulin (test code = Globulin) 3.9 2.0-4.0 [facility]2015-01-23 07:51:00 Test Item Value Reference Range Interpretation Comments A/G Ratio (test code = A/G Ratio) 0.9 0.7-1.6 [id number] 07:51:00 Test Item Value Reference Range Interpretation Comments hCG Tot (test code = hCG Tot) no gt [facility] HospitalEvjwczaSXDOFSFGAE7383-99-88 07:51:00 Test Item Value Reference Range Interpretation Comments MCHC (test code = MCHC) 33.8 32.0-36.0 [facility] HospitalOqjmtefVQZKPXFXQU8933-83-64 07:51:00 Test Item Value Reference Range Interpretation Comments MCH (test code = MCH) 30.3 pg 27.0-31.0 [facility] HospitalBbqqxzoKGQKEXMHWM0185-33-46 07:51:00 Test Item Value Reference Range Interpretation Comments RDW (test code = RDW) 13.0 11.5-14.5 [facility] HospitalNgcpejnIECCBPCVXI3801-34-06 07:51:00 Test Item Value Reference Range Interpretation Comments MPV (test code = MPV) 8.4 7.4-10.4 [facility] HospitalEybyygyCDDZIBMPDU9084-60-23 07:51:00 Test Item Value Reference Range Interpretation Comments Platelet (test code = Platelet) 356 133-450 [facility] HospitalXymkulkFMQKRZGMVW4214-53-43 07:51:00 Test Item Value Reference Range Interpretation Comments RBC (test code = RBC) 4.45 4.20-5.40 [facility] HospitalHofzdacWAEIQMLNAA2473-89-21 07:51:00 Test Item Value Reference Range Interpretation Comments WBC (test code = WBC) 12.9 3.7-10.4 [facility] HospitalNijddgwZDVHHGVTGA8263-23-23 07:51:00 Test Item Value Reference Range Interpretation Comments Hgb (test code = Hgb) 13.5 12.0-16.0 [facility] HospitalTiaplugBZQUBNNWRJ3034-95-62 07:51:00 Test Item Value Reference Range Interpretation Comments MCV (test code = MCV) 89.7 80.0-98.0 [facility] HospitalVhaeeayOYBCBIGOOI7670-51-83 07:51:00 Test Item Value Reference Range Interpretation Comments Hct (test code = Hct) 39.9 36.0-48.0 [facility] HospitalXhykoiyPFTCUAFIKU2010-04-55 07:51:00 Test Item Value Reference Range Interpretation Comments Eosinophils # (test code 0.3 See_Comment [A utomated message] The = Eosinophils #) system whic h generated this result tra nsmitted reference range : <=0.5. The reference r ozzy was not used to int erpret this result as normal/abnormal . [facility] HospitalMxkgcbtHMEPJOZWXP7415-50-54 07:51:00 Test Item Value Reference Range Interpretation Comments Lymphocytes # (test code = Lymphocytes 3.6 1.0-5.5 #) [facility] HospitalSdpgcvwULHVCRKLNA3809-36-21 07:51:00 Test Item Value Reference Range Interpretation Comments Monocytes # (test code 0.7 See_Comment [Aut omated message] The = Monocytes #) system which generated this result tra nsmitted reference range : <=0.8. The reference r ozzy was not used to int erpret this result as normal/abnormal . [facility] HospitalVmobtzzNLEAUXVQMY7437-88-78 07:51:00 Test Item Value Reference Range Interpretation Comments Segs (test code = Segs) 63.9 45.0-75.0 [facility] HospitalVejcptuVENGQVMZNR1714-84-65 07:51:00 Test Item Value Reference Range Interpretation Comments Segs-Bands # (test code = Segs-Bands #) 8.2 1.5-8.1 [facility] HospitalXpmekwfDSDWODDWZW7695-23-01 07:51:00 Test Item Value Reference Range Interpretation Comments Basophils (test code = 0.7 See_Comment [Aut omated message] The Basophils) system which ge nerated this result tra nsmitted reference range : <=1.0. The reference r ozzy was not used to int erpret this result as normal/abnormal . [facility] HospitalDjwxoybCXSGJKNKRU8519-72-99 07:51:00 Test Item Value Reference Range Interpretation Comments Monocytes (test code = Monocytes) 5.4 2.0-12.0 [facility] HospitalUeavtzfPEYIAGOIST1491-27-79 07:51:00 Test Item Value Reference Range Interpretation Comments Eosinophils (test code = 2.3 See_Comment [A utomated message] The Eosinophils) system which ge nerated this result tra nsmitted reference range : <=4.0. The reference r ozzy was not used to int erpret this result as normal/abnormal . [facility] HospitalCmetzliMAUKPOILBA3516-97-03 07:51:00 Test Item Value Reference Range Interpretation Comments Lymphocytes (test code = Lymphocytes) 27.7 20.0-40.0 [facility] HospitalRjvvvdhPESNUKQZHA7027-77-37 07:51:00 Test Item Value Reference Range Interpretation Comments Basophils # (test code 0.1 See_Comment [Aut omated message] The = Basophils #) system which generated this result tra nsmitted reference range : <=0.2. The reference r ozzy was not used to int erpret this result as normal/abnormal . [facility]2015-01-23 07:51:00 Test Item Value Reference Range Interpretation Comments UA Urobilinogen (test code = UA 1.0 0.1-1.0 Urobilinogen) [facility] AND [id number] 07:51:00 Test Item Value Reference Range Interpretation Comments UA Turbidity (test code Cloudy *ABN*(09/04/14 = UA Turbidity) 1:51 AM) [facility] AND [id number] 07:51:00 Test Item Value Reference Range Interpretation Comments UA Color (test code = Red *ABN*(09/04/14 1:51 UA Color) AM) [facility] AND [id number] 07:51:00 Test Item Value Reference Range Interpretation Comments UA Ketones (test code Negative *NA*(09/04/14 = UA Ketones) 1:51 AM) [facility] AND [id number] 07:51:00 Test Item Value Reference Range Interpretation Comments UA Glucose (test code Negative (09/04/14 1:51 = UA Glucose) AM) [facility] AND [id number] 07:51:00 Test Item Value Reference Range Interpretation Comments UA Protein (test code = Trace *ABN*(09/04/14 UA Protein) 1:51 AM) [facility] AND [id number] 07:51:00 Test Item Value Reference Range Interpretation Comments UA pH (test code = UA pH) 8.0 1 5.0-8.0 [facility] AND [id number] 07:51:00 Test Item Value Reference Range Interpretation Comments UA Spec Grav (test code = UA Spec 1.015 1 Grav) [facility] AND [id number] 07:51:00 Test Item Value Reference Range Interpretation Comments UA Bili (test code = Negative *NA*(09/04/14 UA Bili) 1:51 AM) [facility] AND [id number] 07:51:00 Test Item Value Reference Range Interpretation Comments UA Blood (test code = Large *ABN*(09/04/14 UA Blood) 1:51 AM) [facility] AND [id number] 07:51:00 Test Item Value Reference Range Interpretation Comments UA Leuk Est (test Negative (09/04/14 1:51 code = UA Leuk Est) AM) [facility] AND [id number] 07:51:00 Test Item Value Reference Range Interpretation Comments UA Nitrite (test code Negative (09/04/14 1:51 = UA Nitrite) AM) [facility] AND [id number] 07:51:00 Test Item Value Reference Range Interpretation Comments UA Amorph Joselin (test code = UA Few /HPF Amorph Joselin) [facility] AND [id number] 07:51:00 Test Item Value Reference Range Interpretation Comments UA RBC (test code 51-100 /HPF See_Comment [Automate d message] The = UA RBC) system which ge nerated this result tra nsmitted reference range : <=2. The reference r ozzy was not used to int erpret this result as normal/abnormal . [facility] [id number] 07:51:00 Test Item Value Reference Range Interpretation Comments UA WBC (test code = UA WBC) 6-10 /HPF [facility] [id number] 07:51:00 Test Item Value Reference Range Interpretation Comments UA Bacteria (test code = UA Few /HPF Bacteria) [facility] [id number] 07:51:00 Test Item Value Reference Range Interpretation Comments UA Sq Epi (test code = UA Sq Occasional /LPF Epi) [facility] [employer] [id number] 07:51:00 Test Item Value Reference Range Interpretation Comments ABO/Rh (test code = ABO/Rh) A POS [facility] [employer] [id number] 07:51:00 Test Item Value Reference Range Interpretation Comments Antibody Scrn (test Negative (09/04/14 1:51 code = Antibody Scrn) AM) [employer] [id number] 07:51:00 Test Item Value Reference Range Interpretation Comments Albumin Lvl (test code = Albumin Lvl) 3.4 3.5-5.0 [facility] [employer] [id number] 07:51:00 Test Item Value Reference Range Interpretation Comments Alk Phos (test code = Alk Phos) 64 39-136 [facility] [employer] [id number] 07:51:00 Test Item Value Reference Range Interpretation Comments ALT (test code = ALT) 18 See_Comment [Auto mated message] The system which ge nerated this result transmit gaye reference range : <=65. The reference range was not used to interpr et this result as satish l/abnormal. [employer] [id number] 07:51:00 Test Item Value Reference Range Interpretation Comments AST (test code = AST) 12 See_Comment [Auto mated message] The system which ge nerated this result transmit gaye reference range : <=37. The reference range was not used to interpr et this result as satish l/abnormal. [facility]2015-01-23 07:51:00 Test Item Value Reference Range Interpretation Comments eGFR (test code = eGFR) 93 [facility]2015-01-23 07:51:00 Test Item Value Reference Range Interpretation Comments Bili Total (test code = Bili Total) 0.3 0.2-1.3 [facility]2015-01-23 07:51:00 Test Item Value Reference Range Interpretation Comments Chloride Lvl (test code = Chloride Lvl) 108 95-109 [facility]2015-01-23 07:51:00 Test Item Value Reference Range Interpretation Comments Sodium Lvl (test code = Sodium Lvl) 138 135-145 [facility]2015-01-23 07:51:00 Test Item Value Reference Range Interpretation Comments Potassium Lvl (test code = Potassium 3.9 3.5-5.1 Lvl) [facility]2015-01-23 07:51:00 Test Item Value Reference Range Interpretation Comments CO2 (test code = CO2) 22 24-32 [facility]2015-01-23 07:51:00 Test Item Value Reference Range Interpretation Comments Calcium Lvl (test code = Calcium Lvl) 8.8 8.5-10.5 [facility]2015-01-23 07:51:00 Test Item Value Reference Range Interpretation Comments Glucose Lvl (test code = Glucose Lvl) 98 70-99 [facility]2015-01-23 07:51:00 Test Item Value Reference Range Interpretation Comments Total Protein (test code = Total 7.3 6.4-8.4 Protein) [facility]2015-01-23 07:51:00 Test Item Value Reference Range Interpretation Comments BUN (test code = BUN) 12 7-22 [facility]2015-01-23 07:51:00 Test Item Value Reference Range Interpretation Comments Creatinine Lvl (test code = Creatinine 0.8 0.5-1.4 Lvl) [facility]2015-01-23 07:51:00 Test Item Value Reference Range Interpretation Comments AGAP (test code = AGAP) 11.9 10.0-20.0 [facility]2015-01-23 07:51:00 Test Item Value Reference Range Interpretation Comments B/C Ratio (test code = B/C Ratio) 15 6-25 [facility] [id number] 07:51:00 Test Item Value Reference Range Interpretation Comments Globulin (test code = Globulin) 3.9 2.0-4.0 [facility] [id number] 07:51:00 Test Item Value Reference Range Interpretation Comments A/G Ratio (test code = A/G Ratio) 0.9 0.7-1.6 [facility]kobqxgGHBWQWZYQGTIG6864-07-18 07:51:00 Test Item Value Reference Range Interpretation Comments hCG Tot (test code = hCG Tot) no gt [facility] HospitalJpbrafeXAYNCVQPLX0835-23-13 07:51:00 Test Item Value Reference Range Interpretation Comments MCHC (test code = MCHC) 33.8 32.0-36.0 [facility] H[id number] 07:51:00 Test Item Value Reference Range Interpretation Comments MCH (test code = MCH) 30.3 pg 27.0-31.0 [facility] Hospit[id number] 07:51:00 Test Item Value Reference Range Interpretation Comments RDW (test code = RDW) 13.0 11.5-14.5 [facility] HospitalIsktvzqRNUBYISFVJ0518-56-43 07:51:00 Test Item Value Reference Range Interpretation Comments MPV (test code = MPV) 8.4 7.4-10.4 [facility] HospitalGlahfqwMNSASALULL9618-40-46 07:51:00 Test Item Value Reference Range Interpretation Comments Platelet (test code = Platelet) 356 133-450 [facility] HospitalSoosjziCLHZBTBVGF8204-07-40 07:51:00 Test Item Value Reference Range Interpretation Comments RBC (test code = RBC) 4.45 4.20-5.40 [facility] HospitalQfirvtbWEPCTYGIEN3267-01-40 07:51:00 Test Item Value Reference Range Interpretation Comments WBC (test code = WBC) 12.9 3.7-10.4 [facility] HospitalGabjnkaKHSGJTAZDW3378-90-29 07:51:00 Test Item Value Reference Range Interpretation Comments Hgb (test code = Hgb) 13.5 12.0-16.0 [facility] HospitalPbbakzoEXNIAUBJLN2914-41-10 07:51:00 Test Item Value Reference Range Interpretation Comments MCV (test code = MCV) 89.7 80.0-98.0 [facility] HospitalEjbxstdFUYDLZPREW0553-91-63 07:51:00 Test Item Value Reference Range Interpretation Comments Hct (test code = Hct) 39.9 36.0-48.0 [facility] HospitalRgnkoiwNZXAQWYTWP8652-43-80 07:51:00 Test Item Value Reference Range Interpretation Comments Eosinophils # (test code 0.3 See_Comment [A utomated message] The = Eosinophils #) system whic h generated this result tra nsmitted reference range : <=0.5. The reference r ozzy was not used to int erpret this result as normal/abnormal . [facility] HospitalXsbdycvHYLPABAXND8012-15-72 07:51:00 Test Item Value Reference Range Interpretation Comments Lymphocytes # (test code = Lymphocytes 3.6 1.0-5.5 #) [facility] HospitalZqllcwzCLCONYISBI8930-10-23 07:51:00 Test Item Value Reference Range Interpretation Comments Monocytes # (test code 0.7 See_Comment [Aut omated message] The = Monocytes #) system which generated this result tra nsmitted reference range : <=0.8. The reference r ozzy was not used to int erpret this result as normal/abnormal . [facility] HospitalDjduthtUVQHSBMWLT3506-80-77 07:51:00 Test Item Value Reference Range Interpretation Comments Segs (test code = Segs) 63.9 45.0-75.0 [facility] HospitalGxvixgvDIXHBIZMKE8625-73-69 07:51:00 Test Item Value Reference Range Interpretation Comments Segs-Bands # (test code = Segs-Bands #) 8.2 1.5-8.1 [facility] HospitalWgmsxrhUJDQDIMDQC5131-92-25 07:51:00 Test Item Value Reference Range Interpretation Comments Basophils (test code = 0.7 See_Comment [Aut omated message] The Basophils) system which ge nerated this result tra nsmitted reference range : <=1.0. The reference r ozzy was not used to int erpret this result as normal/abnormal . [facility] HospitalKzgfsirLFNGTAXGDI2258-84-11 07:51:00 Test Item Value Reference Range Interpretation Comments Monocytes (test code = Monocytes) 5.4 2.0-12.0 [facility] HospitalSrjetubSVXEGLLEVA1397-36-21 07:51:00 Test Item Value Reference Range Interpretation Comments Eosinophils (test code = 2.3 See_Comment [A utomated message] The Eosinophils) system which ge nerated this result tra nsmitted reference range : <=4.0. The reference r ozzy was not used to int erpret this result as normal/abnormal . [facility] H[id number] 07:51:00 Test Item Value Reference Range Interpretation Comments Lymphocytes (test code = Lymphocytes) 27.7 20.0-40.0 [facility] HospitalTixaqwoEJPMZMUFBV1060-86-41 07:51:00 Test Item Value Reference Range Interpretation Comments Basophils # (test code 0.1 See_Comment [Aut omated message] The = Basophils #) system which generated this result tra nsmitted reference range : <=0.2. The reference r ozzy was not used to int erpret this result as normal/abnormal . [facility] AND [id number] 07:51:00 Test Item Value Reference Range Interpretation Comments UA Urobilinogen (test code = UA 1.0 0.1-1.0 Urobilinogen) [facility] AND [id number] 07:51:00 Test Item Value Reference Range Interpretation Comments UA Turbidity (test code Cloudy *ABN*(09/04/14 = UA Turbidity) 1:51 AM) [facility] AND [id number] 07:51:00 Test Item Value Reference Range Interpretation Comments UA Color (test code = Red *ABN*(09/04/14 1:51 UA Color) AM) [facility] AND [id number] 07:51:00 Test Item Value Reference Range Interpretation Comments UA Ketones (test code Negative *NA*(09/04/14 = UA Ketones) 1:51 AM) [facility] AND [id number] 07:51:00 Test Item Value Reference Range Interpretation Comments UA Glucose (test code Negative (09/04/14 1:51 = UA Glucose) AM) [facility] AND [id number] 07:51:00 Test Item Value Reference Range Interpretation Comments UA Protein (test code = Trace *ABN*(09/04/14 UA Protein) 1:51 AM) [facility] AND [id number] 07:51:00 Test Item Value Reference Range Interpretation Comments UA pH (test code = UA pH) 8.0 1 5.0-8.0 [facility] AND [id number] 07:51:00 Test Item Value Reference Range Interpretation Comments UA Spec Grav (test code = UA Spec 1.015 1 Grav) [facility] AND [id number] 07:51:00 Test Item Value Reference Range Interpretation Comments UA Bili (test code = Negative *NA*(09/04/14 UA Bili) 1:51 AM) [facility] AND [id number] 07:51:00 Test Item Value Reference Range Interpretation Comments UA Blood (test code = Large *ABN*(09/04/14 UA Blood) 1:51 AM) [facility] AND [id number] 07:51:00 Test Item Value Reference Range Interpretation Comments UA Leuk Est (test Negative (09/04/14 1:51 code = UA Leuk Est) AM) [facility] AND [id number] 07:51:00 Test Item Value Reference Range Interpretation Comments UA Nitrite (test code Negative (09/04/14 1:51 = UA Nitrite) AM) [facility] AND [id number] 07:51:00 Test Item Value Reference Range Interpretation Comments UA Amorph Joselin (test code = UA Few /HPF Amorph Joselin) [facility] AND [id number] 07:51:00 Test Item Value Reference Range Interpretation Comments UA RBC (test code 51-100 /HPF See_Comment [Automate d message] The = UA RBC) system which ge nerated this result tra nsmitted reference range : <=2. The reference r ozzy was not used to int erpret this result as normal/abnormal . [facility] AND [id number] 07:51:00 Test Item Value Reference Range Interpretation Comments UA WBC (test code = UA WBC) 6-10 /HPF [facility] AND [id number] 07:51:00 Test Item Value Reference Range Interpretation Comments UA Bacteria (test code = UA Few /HPF Bacteria) [facility] AND [id number] 07:51:00 Test Item Value Reference Range Interpretation Comments UA Sq Epi (test code = UA Sq Occasional /LPF Epi) [facility] [employer] [id number] 07:51:00 Test Item Value Reference Range Interpretation Comments ABO/Rh (test code = ABO/Rh) A POS [facility] [id number] 07:51:00 Test Item Value Reference Range Interpretation Comments Antibody Scrn (test Negative (09/04/14 1:51 code = Antibody Scrn) AM) [facility]2015-01-23 07:51:00 Test Item Value Reference Range Interpretation Comments Albumin Lvl (test code = Albumin Lvl) 3.4 3.5-5.0 [facility] [id number] 07:51:00 Test Item Value Reference Range Interpretation Comments Alk Phos (test code = Alk Phos) 64 39-136 [facility] [id number] 07:51:00 Test Item Value Reference Range Interpretation Comments ALT (test code = ALT) 18 See_Comment [Auto mated message] The system which ge nerated this result transmit gaye reference range : <=65. The reference range was not used to interpr et this result as satish l/abnormal. [facility] [id number] 07:51:00 Test Item Value Reference Range Interpretation Comments AST (test code = AST) 12 See_Comment [Auto mated message] The system which ge nerated this result transmit gaye reference range : <=37. The reference range was not used to interpr et this result as satish l/abnormal. [facility] [id number] 07:51:00 Test Item Value Reference Range Interpretation Comments eGFR (test code = eGFR) 93 [facility] [id number] 07:51:00 Test Item Value Reference Range Interpretation Comments Bili Total (test code = Bili Total) 0.3 0.2-1.3 [facility] [id number] 07:51:00 Test Item Value Reference Range Interpretation Comments Chloride Lvl (test code = Chloride Lvl) 108 95-109 [facility] [id number] 07:51:00 Test Item Value Reference Range Interpretation Comments Sodium Lvl (test code = Sodium Lvl) 138 135-145 [facility] [id number] 07:51:00 Test Item Value Reference Range Interpretation Comments Potassium Lvl (test code = Potassium 3.9 3.5-5.1 Lvl) [facility] [id number] 07:51:00 Test Item Value Reference Range Interpretation Comments CO2 (test code = CO2) 22 24-32 [facility]2015-01-23 07:51:00 Test Item Value Reference Range Interpretation Comments Calcium Lvl (test code = Calcium Lvl) 8.8 8.5-10.5 [facility]2015-01-23 07:51:00 Test Item Value Reference Range Interpretation Comments Glucose Lvl (test code = Glucose Lvl) 98 70-99 [facility]2015-01-23 07:51:00 Test Item Value Reference Range Interpretation Comments Total Protein (test code = Total 7.3 6.4-8.4 Protein) [facility]2015-01-23 07:51:00 Test Item Value Reference Range Interpretation Comments BUN (test code = BUN) 12 - [facility]2015-01-23 07:51:00 Test Item Value Reference Range Interpretation Comments Creatinine Lvl (test code = Creatinine 0.8 0.5-1.4 Lvl) [facility]2015-01-23 07:51:00 Test Item Value Reference Range Interpretation Comments AGAP (test code = AGAP) 11.9 10.0-20.0 [facility]2015-01-23 07:51:00 Test Item Value Reference Range Interpretation Comments B/C Ratio (test code = B/C Ratio) 15 6-25 [facility]2015-01-23 07:51:00 Test Item Value Reference Range Interpretation Comments Globulin (test code = Globulin) 3.9 2.0-4.0 [facility]2015-01-23 07:51:00 Test Item Value Reference Range Interpretation Comments A/G Ratio (test code = A/G Ratio) 0.9 0.7-1.6 [facility]DybiaogNLIQCCPWJCLYI9911-07-51 07:51:00 Test Item Value Reference Range Interpretation Comments hCG Tot (test code = hCG Tot) no gt [facility] Hospit[id number] 07:51:00 Test Item Value Reference Range Interpretation Comments MCHC (test code = MCHC) 33.8 32.0-36.0 [facility] HospitalYbxhnoeMSDKCVTVOP0897-28-45 07:51:00 Test Item Value Reference Range Interpretation Comments MCH (test code = MCH) 30.3 pg 27.0-31.0 [facility] HospitalZuutmgdKSANXNXMNQ9873-04-12 07:51:00 Test Item Value Reference Range Interpretation Comments RDW (test code = RDW) 13.0 11.5-14.5 [facility] HospitalBgbcleqLJYDESBJDY7829-05-70 07:51:00 Test Item Value Reference Range Interpretation Comments MPV (test code = MPV) 8.4 7.4-10.4 [facility] HospitalItfaadfJTCCUQALTB7854-74-22 07:51:00 Test Item Value Reference Range Interpretation Comments Platelet (test code = Platelet) 356 133-450 [facility] HospitalMfdidsjJAJKQNUYWD9188-41-97 07:51:00 Test Item Value Reference Range Interpretation Comments RBC (test code = RBC) 4.45 4.20-5.40 [facility] HospitalNaxcslnCNNOSKCJAB4949-31-87 07:51:00 Test Item Value Reference Range Interpretation Comments WBC (test code = WBC) 12.9 3.7-10.4 [facility] HospitalVvqxjddPTQKXWOMEJ4579-68-49 07:51:00 Test Item Value Reference Range Interpretation Comments Hgb (test code = Hgb) 13.5 12.0-16.0 [facility] Hospit[id number] 07:51:00 Test Item Value Reference Range Interpretation Comments MCV (test code = MCV) 89.7 80.0-98.0 [facility] HospitalVzjyvjcPPRYHQWKUI9859-05-69 07:51:00 Test Item Value Reference Range Interpretation Comments Hct (test code = Hct) 39.9 36.0-48.0 [facility] HospitalVyticaeXNNTSNIHQO9915-26-74 07:51:00 Test Item Value Reference Range Interpretation Comments Eosinophils # (test code 0.3 See_Comment [A utomated message] The = Eosinophils #) system whic h generated this result tra nsmitted reference range : <=0.5. The reference r ozzy was not used to int erpret this result as normal/abnormal . [facility] HospitalWyucwzuQBGANCQPVW9110-25-50 07:51:00 Test Item Value Reference Range Interpretation Comments Lymphocytes # (test code = Lymphocytes 3.6 1.0-5.5 #) [facility] HospitalWrwplkpWRSRUICOTW4113-92-13 07:51:00 Test Item Value Reference Range Interpretation Comments Monocytes # (test code 0.7 See_Comment [Aut omated message] The = Monocytes #) system which generated this result tra nsmitted reference range : <=0.8. The reference r ozzy was not used to int erpret this result as normal/abnormal . [facility] HospitalWcgjtojKURNBPJUPN8568-11-87 07:51:00 Test Item Value Reference Range Interpretation Comments Segs (test code = Segs) 63.9 45.0-75.0 [facility] HospitalWejjnflYJGMVNNHKR7238-37-46 07:51:00 Test Item Value Reference Range Interpretation Comments Segs-Bands # (test code = Segs-Bands #) 8.2 1.5-8.1 [facility] HospitalChlfrziLVGJMKXFZR0592-32-18 07:51:00 Test Item Value Reference Range Interpretation Comments Basophils (test code = 0.7 See_Comment [Aut omated message] The Basophils) system which ge nerated this result tra nsmitted reference range : <=1.0. The reference r ozzy was not used to int erpret this result as normal/abnormal . [facility] HospitalR[id number] 07:51:00 Test Item Value Reference Range Interpretation Comments Monocytes (test code = Monocytes) 5.4 2.0-12.0 [facility] HospitalOtclrieCMWZMAOFRD5991-80-05 07:51:00 Test Item Value Reference Range Interpretation Comments Eosinophils (test code = 2.3 See_Comment [A utomated message] The Eosinophils) system which ge nerated this result tra nsmitted reference range : <=4.0. The reference r ozzy was not used to int erpret this result as normal/abnormal . [facility] HospitalBvznldmAEONOPIURY1494-44-34 07:51:00 Test Item Value Reference Range Interpretation Comments Lymphocytes (test code = Lymphocytes) 27.7 20.0-40.0 [facility] HospitalXkenghzUUCUAUFIPD7569-28-22 07:51:00 Test Item Value Reference Range Interpretation Comments Basophils # (test code 0.1 See_Comment [Aut omated message] The = Basophils #) system which generated this result tra nsmitted reference range : <=0.2. The reference r ozzy was not used to int erpret this result as normal/abnormal . [facility]2015-01-23 07:51:00 Test Item Value Reference Range Interpretation Comments UA Urobilinogen (test code = UA 1.0 0.1-1.0 Urobilinogen) [facility]2015-01-23 07:51:00 Test Item Value Reference Range Interpretation Comments UA Turbidity (test code Cloudy *ABN*(09/04/14 = UA Turbidity) 1:51 AM) [facility] AND [id number] 07:51:00 Test Item Value Reference Range Interpretation Comments UA Color (test code = Red *ABN*(09/04/14 1:51 UA Color) AM) [facility] AND [id number] 07:51:00 Test Item Value Reference Range Interpretation Comments UA Ketones (test code Negative *NA*(09/04/14 = UA Ketones) 1:51 AM) [facility] AND [id number] 07:51:00 Test Item Value Reference Range Interpretation Comments UA Glucose (test code Negative (09/04/14 1:51 = UA Glucose) AM) [facility] AND [id number] 07:51:00 Test Item Value Reference Range Interpretation Comments UA Protein (test code = Trace *ABN*(09/04/14 UA Protein) 1:51 AM) [facility] AND [id number] 07:51:00 Test Item Value Reference Range Interpretation Comments UA pH (test code = UA pH) 8.0 1 5.0-8.0 [facility] AND [id number] 07:51:00 Test Item Value Reference Range Interpretation Comments UA Spec Grav (test code = UA Spec 1.015 1 Grav) [facility] AND [id number] 07:51:00 Test Item Value Reference Range Interpretation Comments UA Bili (test code = Negative *NA*(09/04/14 UA Bili) 1:51 AM) [facility] AND [id number] 07:51:00 Test Item Value Reference Range Interpretation Comments UA Blood (test code = Large *ABN*(09/04/14 UA Blood) 1:51 AM) [facility] AND [id number] 07:51:00 Test Item Value Reference Range Interpretation Comments UA Leuk Est (test Negative (09/04/14 1:51 code = UA Leuk Est) AM) [facility] AND [id number] 07:51:00 Test Item Value Reference Range Interpretation Comments UA Nitrite (test code Negative (09/04/14 1:51 = UA Nitrite) AM) [facility] [id number] 07:51:00 Test Item Value Reference Range Interpretation Comments UA Amorph Joselin (test code = UA Few /HPF Amorph Joselin) [facility] [id number] 07:51:00 Test Item Value Reference Range Interpretation Comments UA RBC (test code 51-100 /HPF See_Comment [Automate d message] The = UA RBC) system which ge nerated this result tra nsmitted reference range : <=2. The reference r ozzy was not used to int erpret this result as normal/abnormal . [facility] [id number] 07:51:00 Test Item Value Reference Range Interpretation Comments UA WBC (test code = UA WBC) 6-10 /HPF [facility] [id number] 07:51:00 Test Item Value Reference Range Interpretation Comments UA Bacteria (test code = UA Few /HPF Bacteria) [facility] AND [id number] 07:51:00 Test Item Value Reference Range Interpretation Comments UA Sq Epi (test code = UA Sq Occasional /LPF Epi) [facility] [employer] [id number] 07:51:00 Test Item Value Reference Range Interpretation Comments ABO/Rh (test code = ABO/Rh) A POS [facility] [employer] [id number] 07:51:00 Test Item Value Reference Range Interpretation Comments Antibody Scrn (test Negative (09/04/14 1:51 code = Antibody Scrn) AM) [facility] [employer] [id number] 07:51:00 Test Item Value Reference Range Interpretation Comments Albumin Lvl (test code = Albumin Lvl) 3.4 3.5-5.0 [facility] [employer] [id number] 07:51:00 Test Item Value Reference Range Interpretation Comments Alk Phos (test code = Alk Phos) 64 39-136 [facility] [employer] [id number] 07:51:00 Test Item Value Reference Range Interpretation Comments ALT (test code = ALT) 18 See_Comment [Auto mated message] The system which ge nerated this result transmit gaye reference range : <=65. The reference range was not used to interpr et this result as satish l/abnormal. [employer] [id number] 07:51:00 Test Item Value Reference Range Interpretation Comments AST (test code = AST) 12 See_Comment [Auto mated message] The system which ge nerated this result transmit gaye reference range : <=37. The reference range was not used to interpr et this result as satish l/abnormal. [facility]2015-01-23 07:51:00 Test Item Value Reference Range Interpretation Comments eGFR (test code = eGFR) 93 [facility]2015-01-23 07:51:00 Test Item Value Reference Range Interpretation Comments Bili Total (test code = Bili Total) 0.3 0.2-1.3 [facility]2015-01-23 07:51:00 Test Item Value Reference Range Interpretation Comments Chloride Lvl (test code = Chloride Lvl) 108 95-109 [facility]2015-01-23 07:51:00 Test Item Value Reference Range Interpretation Comments Sodium Lvl (test code = Sodium Lvl) 138 135-145 [facility]2015-01-23 07:51:00 Test Item Value Reference Range Interpretation Comments Potassium Lvl (test code = Potassium 3.9 3.5-5.1 Lvl) [facility]2015-01-23 07:51:00 Test Item Value Reference Range Interpretation Comments CO2 (test code = CO2) -32 [facility]2015-01-23 07:51:00 Test Item Value Reference Range Interpretation Comments Calcium Lvl (test code = Calcium Lvl) 8.8 8.5-10.5 [facility]2015-01-23 07:51:00 Test Item Value Reference Range Interpretation Comments Glucose Lvl (test code = Glucose Lvl) 98 70-99 [facility]2015-01-23 07:51:00 Test Item Value Reference Range Interpretation Comments Total Protein (test code = Total 7.3 6.4-8.4 Protein) [facility]2015-01-23 07:51:00 Test Item Value Reference Range Interpretation Comments BUN (test code = BUN) 12 - [facility]2015-01-23 07:51:00 Test Item Value Reference Range Interpretation Comments Creatinine Lvl (test code = Creatinine 0.8 0.5-1.4 Lvl) [facility]2015-01-23 07:51:00 Test Item Value Reference Range Interpretation Comments AGAP (test code = AGAP) 11.9 10.0-20.0 [facility]2015-01-23 07:51:00 Test Item Value Reference Range Interpretation Comments B/C Ratio (test code = B/C Ratio) 15 6-25 [facility] [id number] 07:51:00 Test Item Value Reference Range Interpretation Comments Globulin (test code = Globulin) 3.9 2.0-4.0 [facility]2015-01-23 07:51:00 Test Item Value Reference Range Interpretation Comments A/G Ratio (test code = A/G Ratio) 0.9 0.7-1.6 [facility]roKDNUPGQSGCSZY8917-82-60 07:51:00 Test Item Value Reference Range Interpretation Comments hCG Tot (test code = hCG Tot) no gt [facility] HospitalJwtoyhhTPXNRUFIHF2294-96-54 07:51:00 Test Item Value Reference Range Interpretation Comments MCHC (test code = MCHC) 33.8 32.0-36.0 [facility] HospitalYxvuyeeFXZYVSZBSD0341-16-76 07:51:00 Test Item Value Reference Range Interpretation Comments MCH (test code = MCH) 30.3 pg 27.0-31.0 [facility] HospitalMrvwxtmGTYBEYCWXM7854-19-30 07:51:00 Test Item Value Reference Range Interpretation Comments RDW (test code = RDW) 13.0 11.5-14.5 [facility] HospitalRxqflmuQMDKUVXIIW6204-78-92 07:51:00 Test Item Value Reference Range Interpretation Comments MPV (test code = MPV) 8.4 7.4-10.4 [facility] HospitalDowkscgRTTFANHEZQ7827-17-19 07:51:00 Test Item Value Reference Range Interpretation Comments Platelet (test code = Platelet) 356 133-450 [facility] HospitalVwvngqhISOTAREIKQ4115-20-33 07:51:00 Test Item Value Reference Range Interpretation Comments RBC (test code = RBC) 4.45 4.20-5.40 [facility] HospitalUpmtlsvQGRAQSJQAU9375-64-63 07:51:00 Test Item Value Reference Range Interpretation Comments WBC (test code = WBC) 12.9 3.7-10.4 [facility] HospitalGfmrbwhURDHORKGNI6409-83-81 07:51:00 Test Item Value Reference Range Interpretation Comments Hgb (test code = Hgb) 13.5 12.0-16.0 [facility] HospitalXkrhcgzFYSDQHKBDD8153-05-66 07:51:00 Test Item Value Reference Range Interpretation Comments MCV (test code = MCV) 89.7 80.0-98.0 [facility] HospitalTjsqhyrXVXFQOYUBC5695-49-64 07:51:00 Test Item Value Reference Range Interpretation Comments Hct (test code = Hct) 39.9 36.0-48.0 [facility] HospitalQumcwpmWUUQMSXKWO4168-26-57 07:51:00 Test Item Value Reference Range Interpretation Comments Eosinophils # (test code 0.3 See_Comment [A utomated message] The = Eosinophils #) system whic h generated this result tra nsmitted reference range : <=0.5. The reference r ozzy was not used to int erpret this result as normal/abnormal . [facility] HospitalTtczpihVWADZCOSKS2365-72-74 07:51:00 Test Item Value Reference Range Interpretation Comments Lymphocytes # (test code = Lymphocytes 3.6 1.0-5.5 #) [facility] HospitalVjzbjlpOMOYDDGLCT7150-49-12 07:51:00 Test Item Value Reference Range Interpretation Comments Monocytes # (test code 0.7 See_Comment [Aut omated message] The = Monocytes #) system which generated this result tra nsmitted reference range : <=0.8. The reference r ozzy was not used to int erpret this result as normal/abnormal . [facility] HospitalYakiszzSGKFOMKBAV3968-99-72 07:51:00 Test Item Value Reference Range Interpretation Comments Segs (test code = Segs) 63.9 45.0-75.0 [facility] HospitalSiqquohMFYNBYGZGT1601-33-43 07:51:00 Test Item Value Reference Range Interpretation Comments Segs-Bands # (test code = Segs-Bands #) 8.2 1.5-8.1 [facility] HospitalWpmmensBFDISSVUEL7432-17-16 07:51:00 Test Item Value Reference Range Interpretation Comments Basophils (test code = 0.7 See_Comment [Aut omated message] The Basophils) system which ge nerated this result tra nsmitted reference range : <=1.0. The reference r ozzy was not used to int erpret this result as normal/abnormal . [facility] HospitalSxlaqnzPLPFVHHAUF8429-73-54 07:51:00 Test Item Value Reference Range Interpretation Comments Monocytes (test code = Monocytes) 5.4 2.0-12.0 [facility] HospitalOonenqbZWVVGXSMIY0893-16-56 07:51:00 Test Item Value Reference Range Interpretation Comments Eosinophils (test code = 2.3 See_Comment [A utomated message] The Eosinophils) system which ge nerated this result tra nsmitted reference range : <=4.0. The reference r ozzy was not used to int erpret this result as normal/abnormal . [facility] HospitalCszmgfpIJESRVVAHI3064-13-09 07:51:00 Test Item Value Reference Range Interpretation Comments Lymphocytes (test code = Lymphocytes) 27.7 20.0-40.0 [facility] HospitalMrjqayrAKYQOCZKKA3589-49-88 07:51:00 Test Item Value Reference Range Interpretation Comments Basophils # (test code 0.1 See_Comment [Aut omated message] The = Basophils #) system which generated this result tra nsmitted reference range : <=0.2. The reference r ozzy was not used to int erpret this result as normal/abnormal . [facility] AND [id number] 07:51:00 Test Item Value Reference Range Interpretation Comments UA Urobilinogen (test code = UA 1.0 0.1-1.0 Urobilinogen) [facility] AND [id number] 07:51:00 Test Item Value Reference Range Interpretation Comments UA Turbidity (test code Cloudy *ABN*(09/04/14 = UA Turbidity) 1:51 AM) [facility] AND [id number] 07:51:00 Test Item Value Reference Range Interpretation Comments UA Color (test code = Red *ABN*(09/04/14 1:51 UA Color) AM) [facility] AND [id number] 07:51:00 Test Item Value Reference Range Interpretation Comments UA Ketones (test code Negative *NA*(09/04/14 = UA Ketones) 1:51 AM) [facility] AND [id number] 07:51:00 Test Item Value Reference Range Interpretation Comments UA Glucose (test code Negative (09/04/14 1:51 = UA Glucose) AM) [facility] AND [id number] 07:51:00 Test Item Value Reference Range Interpretation Comments UA Protein (test code = Trace *ABN*(1/23/15 UA Protein) 1:51 AM) [facility] AND [id number] 07:51:00 Test Item Value Reference Range Interpretation Comments UA pH (test code = UA pH) 8.0 1 5.0-8.0 [facility] AND [id number] 07:51:00 Test Item Value Reference Range Interpretation Comments UA Spec Grav (test code = UA Spec 1.015 1 Grav) [facility] AND [id number] 07:51:00 Test Item Value Reference Range Interpretation Comments UA Bili (test code = Negative *NA*(09/04/14 UA Bili) 1:51 AM) [facility] AND [id number] 07:51:00 Test Item Value Reference Range Interpretation Comments UA Blood (test code = Large *ABN*(09/04/14 UA Blood) 1:51 AM) [facility] AND [id number] 07:51:00 Test Item Value Reference Range Interpretation Comments UA Leuk Est (test Negative (09/04/14 1:51 code = UA Leuk Est) AM) [facility] AND [id number] 07:51:00 Test Item Value Reference Range Interpretation Comments UA Nitrite (test code Negative (09/04/14 1:51 = UA Nitrite) AM) [facility] AND [id number] 07:51:00 Test Item Value Reference Range Interpretation Comments UA Amorph Joselin (test code = UA Few /HPF Amorph Joselin) [facility] AND [id number] 07:51:00 Test Item Value Reference Range Interpretation Comments UA RBC (test code 51-100 /HPF See_Comment [Automate d message] The = UA RBC) system which ge nerated this result tra nsmitted reference range : <=2. The reference r ozzy was not used to int erpret this result as normal/abnormal . [facility] AND [id number] 07:51:00 Test Item Value Reference Range Interpretation Comments UA WBC (test code = UA WBC) 6-10 /HPF [facility] AND [id number] 07:51:00 Test Item Value Reference Range Interpretation Comments UA Bacteria (test code = UA Few /HPF Bacteria) [facility] AND [id number] 07:51:00 Test Item Value Reference Range Interpretation Comments UA Sq Epi (test code = UA Sq Occasional /LPF Epi) [facility] [employer] [id number] 07:51:00 Test Item Value Reference Range Interpretation Comments ABO/Rh (test code = ABO/Rh) A POS [facility] [employer] [id number] 07:51:00 Test Item Value Reference Range Interpretation Comments Antibody Scrn (test Negative (09/04/14 1:51 code = Antibody Scrn) AM) [facility] [employer] [id number] 07:51:00 Test Item Value Reference Range Interpretation Comments Albumin Lvl (test code = Albumin Lvl) 3.4 3.5-5.0 [facility] [employer] [id number] 07:51:00 Test Item Value Reference Range Interpretation Comments Alk Phos (test code = Alk Phos) 64 39-136 [facility] [employer] [id number] 07:51:00 Test Item Value Reference Range Interpretation Comments ALT (test code = ALT) 18 See_Comment [Auto mated message] The system which ge nerated this result transmit gaye reference range : <=65. The reference range was not used to interpr et this result as satish l/abnormal. [facility] [employer] [id number] 07:51:00 Test Item Value Reference Range Interpretation Comments AST (test code = AST) 12 See_Comment [Auto mated message] The system which ge nerated this result transmit gaye reference range : <=37. The reference range was not used to interpr et this result as satish l/abnormal. [facility] [employer] [id number] 07:51:00 Test Item Value Reference Range Interpretation Comments eGFR (test code = eGFR) 93 [facility] [employer] [id number] 07:51:00 Test Item Value Reference Range Interpretation Comments Bili Total (test code = Bili Total) 0.3 0.2-1.3 [facility] [employer] [id number] 07:51:00 Test Item Value Reference Range Interpretation Comments Chloride Lvl (test code = Chloride Lvl) 108 95-109 [facility] [employer] [id number] 07:51:00 Test Item Value Reference Range Interpretation Comments Sodium Lvl (test code = Sodium Lvl) 138 135-145 [facility] [employer] [id number] 07:51:00 Test Item Value Reference Range Interpretation Comments Potassium Lvl (test code = Potassium 3.9 3.5-5.1 Lvl) [facility]2015-01-23 07:51:00 Test Item Value Reference Range Interpretation Comments CO2 (test code = CO2) 22 24-32 [facility]2015-01-23 07:51:00 Test Item Value Reference Range Interpretation Comments Calcium Lvl (test code = Calcium Lvl) 8.8 8.5-10.5 [facility]2015-01-23 07:51:00 Test Item Value Reference Range Interpretation Comments Glucose Lvl (test code = Glucose Lvl) 98 70-99 [facility]2015-01-23 07:51:00 Test Item Value Reference Range Interpretation Comments Total Protein (test code = Total 7.3 6.4-8.4 Protein) [facility]2015-01-23 07:51:00 Test Item Value Reference Range Interpretation Comments BUN (test code = BUN) 12 7-22 [facility]2015-01-23 07:51:00 Test Item Value Reference Range Interpretation Comments Creatinine Lvl (test code = Creatinine 0.8 0.5-1.4 Lvl) [facility]2015-01-23 07:51:00 Test Item Value Reference Range Interpretation Comments AGAP (test code = AGAP) 11.9 10.0-20.0 [facility]2015-01-23 07:51:00 Test Item Value Reference Range Interpretation Comments B/C Ratio (test code = B/C Ratio) 15 6-25 [facility]2015-01-23 07:51:00 Test Item Value Reference Range Interpretation Comments Globulin (test code = Globulin) 3.9 2.0-4.0 [facility]2015-01-23 07:51:00 Test Item Value Reference Range Interpretation Comments A/G Ratio (test code = A/G Ratio) 0.9 0.7-1.6 [facility]DXNWCLVHF[facility]-61 07:51:00 Test Item Value Reference Range Interpretation Comments hCG Tot (test code = hCG Tot) no gt [facility]ZJIG7191-29-61 07:51:00 Test Item Value Reference Range Interpretation Comments MCHC (test code = MCHC) 33.8 32.0-36.0 [facility] HospitalGwmwmevPDPAPPAHOP6344-98-07 07:51:00 Test Item Value Reference Range Interpretation Comments MCH (test code = MCH) 30.3 pg 27.0-31.0 [facility] HospitalVlskdjzDZOBTGYTSV7197-56-30 07:51:00 Test Item Value Reference Range Interpretation Comments RDW (test code = RDW) 13.0 11.5-14.5 [facility] HospitalPpwsjuiLXDHXZTDHV5039-39-63 07:51:00 Test Item Value Reference Range Interpretation Comments MPV (test code = MPV) 8.4 7.4-10.4 [facility] Hospit[id number] 07:51:00 Test Item Value Reference Range Interpretation Comments Platelet (test code = Platelet) 356 133-450 [facility] HospitalPvyvplwXXZCVTXXIE1532-89-37 07:51:00 Test Item Value Reference Range Interpretation Comments RBC (test code = RBC) 4.45 4.20-5.40 [facility] HospitalTgqleanQYRAWTZWHQ8390-55-29 07:51:00 Test Item Value Reference Range Interpretation Comments WBC (test code = WBC) 12.9 3.7-10.4 [facility] HospitalFimjpxuTQODJENOWR8299-31-04 07:51:00 Test Item Value Reference Range Interpretation Comments Hgb (test code = Hgb) 13.5 12.0-16.0 [facility] HospitalJbeglrjPQHIXXOLLK4726-72-23 07:51:00 Test Item Value Reference Range Interpretation Comments MCV (test code = MCV) 89.7 80.0-98.0 [facility] HospitalOxvndbbVXQVGNZFAV0638-23-45 07:51:00 Test Item Value Reference Range Interpretation Comments Hct (test code = Hct) 39.9 36.0-48.0 [facility] HospitalFjihaeeIZNHUFFONM3709-75-80 07:51:00 Test Item Value Reference Range Interpretation Comments Eosinophils # (test code 0.3 See_Comment [A utomated message] The = Eosinophils #) system whic h generated this result tra nsmitted reference range : <=0.5. The reference r ozzy was not used to int erpret this result as normal/abnormal . [facility] HospitalWvwvxntXBJEAYPBEJ7633-79-00 07:51:00 Test Item Value Reference Range Interpretation Comments Lymphocytes # (test code = Lymphocytes 3.6 1.0-5.5 #) [facility] HospitalFnktkdxZYDKLEBZID5847-52-17 07:51:00 Test Item Value Reference Range Interpretation Comments Monocytes # (test code 0.7 See_Comment [Aut omated message] The = Monocytes #) system which generated this result tra nsmitted reference range : <=0.8. The reference r ozzy was not used to int erpret this result as normal/abnormal . [facility] HospitalNvynwanRMETEJHSKA6359-50-13 07:51:00 Test Item Value Reference Range Interpretation Comments Segs (test code = Segs) 63.9 45.0-75.0 [facility] HospitalVcwypctILGAINJXOG6564-17-70 07:51:00 Test Item Value Reference Range Interpretation Comments Segs-Bands # (test code = Segs-Bands #) 8.2 1.5-8.1 [facility] HospitalSzfrfjkKZOLEQBKJY6550-67-89 07:51:00 Test Item Value Reference Range Interpretation Comments Basophils (test code = 0.7 See_Comment [Aut omated message] The Basophils) system which ge nerated this result tra nsmitted reference range : <=1.0. The reference r ozzy was not used to int erpret this result as normal/abnormal . [facility] HospitalJbmsvvxVPINQFZQJY9472-23-57 07:51:00 Test Item Value Reference Range Interpretation Comments Monocytes (test code = Monocytes) 5.4 2.0-12.0 [facility] HospitalMaswflnMTVHJRADUF3727-91-96 07:51:00 Test Item Value Reference Range Interpretation Comments Eosinophils (test code = 2.3 See_Comment [A utomated message] The Eosinophils) system which ge nerated this result tra nsmitted reference range : <=4.0. The reference r ozzy was not used to int erpret this result as normal/abnormal . [facility] HospitalZqserjuNPOVRWQCDD3593-91-09 07:51:00 Test Item Value Reference Range Interpretation Comments Lymphocytes (test code = Lymphocytes) 27.7 20.0-40.0 [facility] Hos[id number] 07:51:00 Test Item Value Reference Range Interpretation Comments Basophils # (test code 0.1 See_Comment [Aut omated message] The = Basophils #) system which generated this result tra nsmitted reference range : <=0.2. The reference r ozzy was not used to int erpret this result as normal/abnormal . [facility]2015-01-23 07:51:00 Test Item Value Reference Range Interpretation Comments UA Urobilinogen (test code = UA 1.0 0.1-1.0 Urobilinogen) [facility] [id number] 07:51:00 Test Item Value Reference Range Interpretation Comments UA Turbidity (test code Cloudy *ABN*(09/04/14 = UA Turbidity) 1:51 AM) [facility] AND [id number] 07:51:00 Test Item Value Reference Range Interpretation Comments UA Color (test code = Red *ABN*(09/04/14 1:51 UA Color) AM) [facility] AND [id number] 07:51:00 Test Item Value Reference Range Interpretation Comments UA Ketones (test code Negative *NA*(09/04/14 = UA Ketones) 1:51 AM) [facility] AND [id number] 07:51:00 Test Item Value Reference Range Interpretation Comments UA Glucose (test code Negative (09/04/14 1:51 = UA Glucose) AM) [facility] AND [id number] 07:51:00 Test Item Value Reference Range Interpretation Comments UA Protein (test code = Trace *ABN*(09/04/14 UA Protein) 1:51 AM) [facility] AND [id number] 07:51:00 Test Item Value Reference Range Interpretation Comments UA pH (test code = UA pH) 8.0 1 5.0-8.0 [facility] [id number] 07:51:00 Test Item Value Reference Range Interpretation Comments UA Spec Grav (test code = UA Spec 1.015 1 Grav) [facility] AND [id number] 07:51:00 Test Item Value Reference Range Interpretation Comments UA Bili (test code = Negative *NA*(09/04/14 UA Bili) 1:51 AM) [facility] AND [id number] 07:51:00 Test Item Value Reference Range Interpretation Comments UA Blood (test code = Large *ABN*(09/04/14 UA Blood) 1:51 AM) [facility] [id number] 07:51:00 Test Item Value Reference Range Interpretation Comments UA Leuk Est (test Negative (09/04/14 1:51 code = UA Leuk Est) AM) [facility] AND [id number] 07:51:00 Test Item Value Reference Range Interpretation Comments UA Nitrite (test code Negative (09/04/14 1:51 = UA Nitrite) AM) [facility] AND [id number] 07:51:00 Test Item Value Reference Range Interpretation Comments UA Amorph Joselin (test code = UA Few /HPF Amorph Joselin) [facility] AND [id number] 07:51:00 Test Item Value Reference Range Interpretation Comments UA RBC (test code 51-100 /HPF See_Comment [Automate d message] The = UA RBC) system which ge nerated this result tra nsmitted reference range : <=2. The reference r ozzy was not used to int erpret this result as normal/abnormal . [facility] AND [id number] 07:51:00 Test Item Value Reference Range Interpretation Comments UA WBC (test code = UA WBC) 6-10 /HPF [facility] AND [id number] 07:51:00 Test Item Value Reference Range Interpretation Comments UA Bacteria (test code = UA Few /HPF Bacteria) [facility] AND [id number] 07:51:00 Test Item Value Reference Range Interpretation Comments UA Sq Epi (test code = UA Sq Occasional /LPF Epi) [facility] [employer] [id number] 07:51:00 Test Item Value Reference Range Interpretation Comments ABO/Rh (test code = ABO/Rh) A POS [facility] [employer] [id number] 07:51:00 Test Item Value Reference Range Interpretation Comments Antibody Scrn (test Negative (09/04/14 1:51 code = Antibody Scrn) AM) [facility] [employer] [id number] 07:51:00 Test Item Value Reference Range Interpretation Comments Albumin Lvl (test code = Albumin Lvl) 3.4 3.5-5.0 [facility] [employer] [id number] 07:51:00 Test Item Value Reference Range Interpretation Comments Alk Phos (test code = Alk Phos) 64 39-136 [facility] [employer] [id number] 07:51:00 Test Item Value Reference Range Interpretation Comments ALT (test code = ALT) 18 See_Comment [Auto mated message] The system which ge nerated this result transmit gaye reference range : <=65. The reference range was not used to interpr et this result as satish l/abnormal. [facility]2015-01-23 07:51:00 Test Item Value Reference Range Interpretation Comments AST (test code = AST) 12 See_Comment [Auto mated message] The system which ge nerated this result transmit gaye reference range : <=37. The reference range was not used to interpr et this result as satish l/abnormal. [facility]2015-01-23 07:51:00 Test Item Value Reference Range Interpretation Comments eGFR (test code = eGFR) 93 [facility]2015-01-23 07:51:00 Test Item Value Reference Range Interpretation Comments Bili Total (test code = Bili Total) 0.3 0.2-1.3 [place] [id number] 07:51:00 Test Item Value Reference Range Interpretation Comments Chloride Lvl (test code = Chloride Lvl) 108 95-109 [facility]2015-01-23 07:51:00 Test Item Value Reference Range Interpretation Comments Sodium Lvl (test code = Sodium Lvl) 138 135-145 [facility]2015-01-23 07:51:00 Test Item Value Reference Range Interpretation Comments Potassium Lvl (test code = Potassium 3.9 3.5-5.1 Lvl) [facility]2015-01-23 07:51:00 Test Item Value Reference Range Interpretation Comments CO2 (test code = CO2) 22 24-32 [facility]2015-01-23 07:51:00 Test Item Value Reference Range Interpretation Comments Calcium Lvl (test code = Calcium Lvl) 8.8 8.5-10.5 [facility]2015-01-23 07:51:00 Test Item Value Reference Range Interpretation Comments Glucose Lvl (test code = Glucose Lvl) 98 70-99 [facility]2015-01-23 07:51:00 Test Item Value Reference Range Interpretation Comments Total Protein (test code = Total 7.3 6.4-8.4 Protein) [facility]2015-01-23 07:51:00 Test Item Value Reference Range Interpretation Comments BUN (test code = BUN) 12 7-22 [place] [id number] 07:51:00 Test Item Value Reference Range Interpretation Comments Creatinine Lvl (test code = Creatinine 0.8 0.5-1.4 Lvl) [facility]2015-01-23 07:51:00 Test Item Value Reference Range Interpretation Comments AGAP (test code = AGAP) 11.9 10.0-20.0 [facility]2015-01-23 07:51:00 Test Item Value Reference Range Interpretation Comments B/C Ratio (test code = B/C Ratio) 15 6-25 [facility]2015-01-23 07:51:00 Test Item Value Reference Range Interpretation Comments Globulin (test code = Globulin) 3.9 2.0-4.0 [facility]2015-01-23 07:51:00 Test Item Value Reference Range Interpretation Comments A/G Ratio (test code = A/G Ratio) 0.9 0.7-1.6 [place] [id number] 07:51:00 Test Item Value Reference Range Interpretation Comments hCG Tot (test code = hCG Tot) no gt [facility] HospitalRskutogSKJSPQLGDX7936-93-69 07:51:00 Test Item Value Reference Range Interpretation Comments MCHC (test code = MCHC) 33.8 32.0-36.0 [facility] HospitalPfxewuqRDQMVFRMCE2066-85-71 07:51:00 Test Item Value Reference Range Interpretation Comments MCH (test code = MCH) 30.3 pg 27.0-31.0 [facility] HospitalXuswkxjRNWMRXJMSQ3537-84-69 07:51:00 Test Item Value Reference Range Interpretation Comments RDW (test code = RDW) 13.0 11.5-14.5 [facility] HospitalSkuwqejAXSKULJEYT6766-85-89 07:51:00 Test Item Value Reference Range Interpretation Comments MPV (test code = MPV) 8.4 7.4-10.4 [facility] HospitalFtltoioQACATEXFHC3583-38-47 07:51:00 Test Item Value Reference Range Interpretation Comments Platelet (test code = Platelet) 356 133-450 [facility] HospitalMqkoaaoNRWRSHMJSP3816-62-73 07:51:00 Test Item Value Reference Range Interpretation Comments RBC (test code = RBC) 4.45 4.20-5.40 [facility] HospitalXfcatqnYDWFUOMYSW5471-68-44 07:51:00 Test Item Value Reference Range Interpretation Comments WBC (test code = WBC) 12.9 3.7-10.4 [facility] HospitalMwrifycREWRQZOFBJ1297-47-64 07:51:00 Test Item Value Reference Range Interpretation Comments Hgb (test code = Hgb) 13.5 12.0-16.0 [facility] HospitalFzwwtznKNRMULNSDM8686-72-91 07:51:00 Test Item Value Reference Range Interpretation Comments MCV (test code = MCV) 89.7 80.0-98.0 [facility] HospitalTxwsddkQGOTWWNWAE7524-15-95 07:51:00 Test Item Value Reference Range Interpretation Comments Hct (test code = Hct) 39.9 36.0-48.0 [facility] HospitalWkrlwhqNZWDRADTAW5736-05-81 07:51:00 Test Item Value Reference Range Interpretation Comments Eosinophils # (test code 0.3 See_Comment [A utomated message] The = Eosinophils #) system whic h generated this result tra nsmitted reference range : <=0.5. The reference r ozzy was not used to int erpret this result as normal/abnormal . [facility] HospitalNzellqlWXJVMORVHZ9491-59-94 07:51:00 Test Item Value Reference Range Interpretation Comments Lymphocytes # (test code = Lymphocytes 3.6 1.0-5.5 #) [facility] HospitalVwwabgzIIXOLRJTXX5105-36-96 07:51:00 Test Item Value Reference Range Interpretation Comments Monocytes # (test code 0.7 See_Comment [Aut omated message] The = Monocytes #) system which generated this result tra nsmitted reference range : <=0.8. The reference r ozzy was not used to int erpret this result as normal/abnormal . [facility] HospitalHrcrybcQZSIACLCMV3691-62-98 07:51:00 Test Item Value Reference Range Interpretation Comments Segs (test code = Segs) 63.9 45.0-75.0 [facility] HospitalWsmwkgmFKSSWQUQIA0158-52-86 07:51:00 Test Item Value Reference Range Interpretation Comments Segs-Bands # (test code = Segs-Bands #) 8.2 1.5-8.1 [facility] HospitalYkmxbvuJNZOCBMFFQ1686-84-48 07:51:00 Test Item Value Reference Range Interpretation Comments Basophils (test code = 0.7 See_Comment [Aut omated message] The Basophils) system which ge nerated this result tra nsmitted reference range : <=1.0. The reference r ozzy was not used to int erpret this result as normal/abnormal . [facility] HospitalLedowavQOAJTMBOOW9477-10-15 07:51:00 Test Item Value Reference Range Interpretation Comments Monocytes (test code = Monocytes) 5.4 2.0-12.0 [facility] HospitalOrgfrvbXTIEGCQPEV3592-48-59 07:51:00 Test Item Value Reference Range Interpretation Comments Eosinophils (test code = 2.3 See_Comment [A utomated message] The Eosinophils) system which ge nerated this result tra nsmitted reference range : <=4.0. The reference r ozzy was not used to int erpret this result as normal/abnormal . [facility] HospitalNyyotzwJXGUNYJXZZ7713-25-65 07:51:00 Test Item Value Reference Range Interpretation Comments Lymphocytes (test code = Lymphocytes) 27.7 20.0-40.0 [facility] HospitalEhjfxxpQWBOQSUUPJ3068-27-42 07:51:00 Test Item Value Reference Range Interpretation Comments Basophils # (test code 0.1 See_Comment [Aut omated message] The = Basophils #) system which generated this result tra nsmitted reference range : <=0.2. The reference r ozzy was not used to int erpret this result as normal/abnormal . [facility]2015-01-23 07:51:00 Test Item Value Reference Range Interpretation Comments UA Urobilinogen (test code = UA 1.0 0.1-1.0 Urobilinogen) [facility] [id number] 07:51:00 Test Item Value Reference Range Interpretation Comments UA Turbidity (test code Cloudy *ABN*(09/04/14 = UA Turbidity) 1:51 AM) [facility]2015-01-23 07:51:00 Test Item Value Reference Range Interpretation Comments UA Color (test code = Red *ABN*(09/04/14 1:51 UA Color) AM) [facility]2015-01-23 07:51:00 Test Item Value Reference Range Interpretation Comments UA Ketones (test code Negative *NA*(09/04/14 = UA Ketones) 1:51 AM) [facility]2015-01-23 07:51:00 Test Item Value Reference Range Interpretation Comments UA Glucose (test code Negative (09/04/14 1:51 = UA Glucose) AM) [facility] [id number] 07:51:00 Test Item Value Reference Range Interpretation Comments UA Protein (test code = Trace *ABN*(09/04/14 UA Protein) 1:51 AM) [facility] [id number] 07:51:00 Test Item Value Reference Range Interpretation Comments UA pH (test code = UA pH) 8.0 1 5.0-8.0 [facility] [id number] 07:51:00 Test Item Value Reference Range Interpretation Comments UA Spec Grav (test code = UA Spec 1.015 1 Grav) [facility] [id number] 07:51:00 Test Item Value Reference Range Interpretation Comments UA Bili (test code = Negative *NA*(09/04/14 UA Bili) 1:51 AM) [facility] [id number] 07:51:00 Test Item Value Reference Range Interpretation Comments UA Blood (test code = Large *ABN*(09/04/14 UA Blood) 1:51 AM) [facility] AND [id number] 07:51:00 Test Item Value Reference Range Interpretation Comments UA Leuk Est (test Negative (09/04/14 1:51 code = UA Leuk Est) AM) [facility] AND [id number] 07:51:00 Test Item Value Reference Range Interpretation Comments UA Nitrite (test code Negative (09/04/14 1:51 = UA Nitrite) AM) [facility] AND [id number] 07:51:00 Test Item Value Reference Range Interpretation Comments UA Amorph Joselin (test code = UA Few /HPF Amorph Joselin) [facility] AND [id number] 07:51:00 Test Item Value Reference Range Interpretation Comments UA RBC (test code 51-100 /HPF See_Comment [Automate d message] The = UA RBC) system which ge nerated this result tra nsmitted reference range : <=2. The reference r ozzy was not used to int erpret this result as normal/abnormal . [facility] AND [id number] 07:51:00 Test Item Value Reference Range Interpretation Comments UA WBC (test code = UA WBC) 6-10 /HPF [facility] AND [id number] 07:51:00 Test Item Value Reference Range Interpretation Comments UA Bacteria (test code = UA Few /HPF Bacteria) [facility] [id number] 07:51:00 Test Item Value Reference Range Interpretation Comments UA Sq Epi (test code = UA Sq Occasional /LPF Epi) [facility] [employer] [id number] 07:51:00 Test Item Value Reference Range Interpretation Comments ABO/Rh (test code = ABO/Rh) A POS [facility] [employer] [id number] 07:51:00 Test Item Value Reference Range Interpretation Comments Antibody Scrn (test Negative (09/04/14 1:51 code = Antibody Scrn) AM) [facility] [employer] [id number] 07:51:00 Test Item Value Reference Range Interpretation Comments Albumin Lvl (test code = Albumin Lvl) 3.4 3.5-5.0 [facility] [employer] [id number] 07:51:00 Test Item Value Reference Range Interpretation Comments Alk Phos (test code = Alk Phos) 64 39-136 [facility] [employer] [id number] 07:51:00 Test Item Value Reference Range Interpretation Comments ALT (test code = ALT) 18 See_Comment [Auto mated message] The system which ge nerated this result transmit gaye reference range : <=65. The reference range was not used to interpr et this result as satish l/abnormal. [facility] [employer] [id number] 07:51:00 Test Item Value Reference Range Interpretation Comments AST (test code = AST) 12 See_Comment [Auto mated message] The system which ge nerated this result transmit gaye reference range : <=37. The reference range was not used to interpr et this result as satish l/abnormal. [facility] [employer] [id number] 07:51:00 Test Item Value Reference Range Interpretation Comments eGFR (test code = eGFR) 93 [facility] [employer] [id number] 07:51:00 Test Item Value Reference Range Interpretation Comments Bili Total (test code = Bili Total) 0.3 0.2-1.3 [facility] [employer] [id number] 07:51:00 Test Item Value Reference Range Interpretation Comments Chloride Lvl (test code = Chloride Lvl) 108 95-109 [facility] [employer]2015-01-23 07:51:00 Test Item Value Reference Range Interpretation Comments Sodium Lvl (test code = Sodium Lvl) 138 135-145 [facility]2015-01-23 07:51:00 Test Item Value Reference Range Interpretation Comments Potassium Lvl (test code = Potassium 3.9 3.5-5.1 Lvl) [facility]AT[facility] [id number] 07:51:00 Test Item Value Reference Range Interpretation Comments CO2 (test code = CO2) 22 24-32 [facility] [id number] 07:51:00 Test Item Value Reference Range Interpretation Comments Calcium Lvl (test code = Calcium Lvl) 8.8 8.5-10.5 [facility] [id number] 07:51:00 Test Item Value Reference Range Interpretation Comments Glucose Lvl (test code = Glucose Lvl) 98 70-99 [facility] [id number] 07:51:00 Test Item Value Reference Range Interpretation Comments Total Protein (test code = Total 7.3 6.4-8.4 Protein) [facility] [id number] 07:51:00 Test Item Value Reference Range Interpretation Comments BUN (test code = BUN) 12 - [facility] [id number] 07:51:00 Test Item Value Reference Range Interpretation Comments Creatinine Lvl (test code = Creatinine 0.8 0.5-1.4 Lvl) [facility] [id number] 07:51:00 Test Item Value Reference Range Interpretation Comments AGAP (test code = AGAP) 11.9 10.0-20.0 [facility] [id number] 07:51:00 Test Item Value Reference Range Interpretation Comments B/C Ratio (test code = B/C Ratio) 15 6-25 [facility] [employer] [id number] 07:51:00 Test Item Value Reference Range Interpretation Comments ABO/Rh (test code = ABO/Rh) A POS [facility] [employer] [id number] 07:51:00 Test Item Value Reference Range Interpretation Comments Antibody Scrn (test Negative (09/04/14 1:51 code = Antibody Scrn) AM) [facility] [id number] 07:51:00 Test Item Value Reference Range Interpretation Comments Albumin Lvl (test code = Albumin Lvl) 3.4 3.5-5.0 [facility]2015-01-23 07:51:00 Test Item Value Reference Range Interpretation Comments Alk Phos (test code = Alk Phos) 64 39-136 [facility]2015-01-23 07:51:00 Test Item Value Reference Range Interpretation Comments ALT (test code = ALT) 18 See_Comment [Auto mated message] The system which ge nerated this result transmit gaye reference range : <=65. The reference range was not used to interpr et this result as satish l/abnormal. [facility]2015-01-23 07:51:00 Test Item Value Reference Range Interpretation Comments AST (test code = AST) 12 See_Comment [Auto mated message] The system which ge nerated this result transmit gaye reference range : <=37. The reference range was not used to interpr et this result as satish l/abnormal. [facility]2015-01-23 07:51:00 Test Item Value Reference Range Interpretation Comments eGFR (test code = eGFR) 93 [facility]2015-01-23 07:51:00 Test Item Value Reference Range Interpretation Comments Bili Total (test code = Bili Total) 0.3 0.2-1.3 [facility]2015-01-23 07:51:00 Test Item Value Reference Range Interpretation Comments Chloride Lvl (test code = Chloride Lvl) 108 95-109 [facility]2015-01-23 07:51:00 Test Item Value Reference Range Interpretation Comments Sodium Lvl (test code = Sodium Lvl) 138 135-145 [facility]2015-01-23 07:51:00 Test Item Value Reference Range Interpretation Comments Potassium Lvl (test code = Potassium 3.9 3.5-5.1 Lvl) [facility]2015-01-23 07:51:00 Test Item Value Reference Range Interpretation Comments CO2 (test code = CO2) 22 24-32 [facility]2015-01-23 07:51:00 Test Item Value Reference Range Interpretation Comments Calcium Lvl (test code = Calcium Lvl) 8.8 8.5-10.5 [facility]2015-01-23 07:51:00 Test Item Value Reference Range Interpretation Comments Glucose Lvl (test code = Glucose Lvl) 98 70-99 [facility]2015-01-23 07:51:00 Test Item Value Reference Range Interpretation Comments Total Protein (test code = Total 7.3 6.4-8.4 Protein) [facility]2015-01-23 07:51:00 Test Item Value Reference Range Interpretation Comments BUN (test code = BUN) 12 7-22 [facility]2015-01-23 07:51:00 Test Item Value Reference Range Interpretation Comments Creatinine Lvl (test code = Creatinine 0.8 0.5-1.4 Lvl) [facility]2015-01-23 07:51:00 Test Item Value Reference Range Interpretation Comments AGAP (test code = AGAP) 11.9 10.0-20.0 [facility]2015-01-23 07:51:00 Test Item Value Reference Range Interpretation Comments B/C Ratio (test code = B/C Ratio) 15 6-25 [facility]2015-01-23 07:51:00 Test Item Value Reference Range Interpretation Comments Globulin (test code = Globulin) 3.9 2.0-4.0 [facility]2015-01-23 07:51:00 Test Item Value Reference Range Interpretation Comments A/G Ratio (test code = A/G Ratio) 0.9 0.7-1.6 [id number] 07:51:00 Test Item Value Reference Range Interpretation Comments hCG Tot (test code = hCG Tot) no gt [facility] HospitalXfiwvgyPMFEXAZHCM3583-58-12 07:51:00 Test Item Value Reference Range Interpretation Comments MCHC (test code = MCHC) 33.8 32.0-36.0 [facility] [id number] 07:51:00 Test Item Value Reference Range Interpretation Comments MCH (test code = MCH) 30.3 pg 27.0-31.0 [facility] HospitalKxjahmqDTEJYZGEML3236-39-70 07:51:00 Test Item Value Reference Range Interpretation Comments RDW (test code = RDW) 13.0 11.5-14.5 [facility] HospitalPbyfmpnODEZKPHAWC8742-76-59 07:51:00 Test Item Value Reference Range Interpretation Comments MPV (test code = MPV) 8.4 7.4-10.4 [facility] HospitalJusgkphINTITLTAFE8236-68-72 07:51:00 Test Item Value Reference Range Interpretation Comments Platelet (test code = Platelet) 356 133-450 [facility] HospitalZktgxidFUYZDTOJCW7257-67-77 07:51:00 Test Item Value Reference Range Interpretation Comments RBC (test code = RBC) 4.45 4.20-5.40 [facility] HospitalQjvmxazQJYIMZWMOV4749-52-12 07:51:00 Test Item Value Reference Range Interpretation Comments WBC (test code = WBC) 12.9 3.7-10.4 [facility] HospitalFflgkkaGRDVXOSVKH3371-77-99 07:51:00 Test Item Value Reference Range Interpretation Comments Hgb (test code = Hgb) 13.5 12.0-16.0 [facility] HospitalWfykeqgSWSFGCFNSG2234-07-38 07:51:00 Test Item Value Reference Range Interpretation Comments MCV (test code = MCV) 89.7 80.0-98.0 [facility] HospitalGffkjfpNLSCQCPHDY9140-69-26 07:51:00 Test Item Value Reference Range Interpretation Comments Hct (test code = Hct) 39.9 36.0-48.0 [facility] HospitalDyfqbzdWTDYMSQLRJ2438-32-75 07:51:00 Test Item Value Reference Range Interpretation Comments Eosinophils # (test code 0.3 See_Comment [A utomated message] The = Eosinophils #) system whic h generated this result tra nsmitted reference range : <=0.5. The reference r ozzy was not used to int erpret this result as normal/abnormal . [facility] HospitalGyvgrwcFSALJWFOVI4368-04-32 07:51:00 Test Item Value Reference Range Interpretation Comments Lymphocytes # (test code = Lymphocytes 3.6 1.0-5.5 #) [facility] H[id number] 07:51:00 Test Item Value Reference Range Interpretation Comments Monocytes # (test code 0.7 See_Comment [Aut omated message] The = Monocytes #) system which generated this result tra nsmitted reference range : <=0.8. The reference r ozzy was not used to int erpret this result as normal/abnormal . [facility] HospitalJmosoyeLQBYCSZHEX6282-35-17 07:51:00 Test Item Value Reference Range Interpretation Comments Segs (test code = Segs) 63.9 45.0-75.0 [facility] HospitalUfpbzliIZNNWQDRYO5826-78-46 07:51:00 Test Item Value Reference Range Interpretation Comments Segs-Bands # (test code = Segs-Bands #) 8.2 1.5-8.1 [facility] HospitalElurtyzMKHAQEXQWM5483-04-68 07:51:00 Test Item Value Reference Range Interpretation Comments Basophils (test code = 0.7 See_Comment [Aut omated message] The Basophils) system which ge nerated this result tra nsmitted reference range : <=1.0. The reference r ozzy was not used to int erpret this result as normal/abnormal . [facility] HospitalGcmtzuePGWUJUYUVV1094-17-81 07:51:00 Test Item Value Reference Range Interpretation Comments Monocytes (test code = Monocytes) 5.4 2.0-12.0 [facility] HospitalVfjdygoDKCGGGWFEX5091-12-46 07:51:00 Test Item Value Reference Range Interpretation Comments Eosinophils (test code = 2.3 See_Comment [A utomated message] The Eosinophils) system which ge nerated this result tra nsmitted reference range : <=4.0. The reference r ozzy was not used to int erpret this result as normal/abnormal . [facility] HospitalJonhqbaAZOWNSFUYX0439-23-28 07:51:00 Test Item Value Reference Range Interpretation Comments Lymphocytes (test code = Lymphocytes) 27.7 20.0-40.0 [facility] HospitalKurntlbLBTURTCSUN8029-52-75 07:51:00 Test Item Value Reference Range Interpretation Comments Basophils # (test code 0.1 See_Comment [Aut omated message] The = Basophils #) system which generated this result tra nsmitted reference range : <=0.2. The reference r ozzy was not used to int erpret this result as normal/abnormal . [facility]2015-01-23 07:51:00 Test Item Value Reference Range Interpretation Comments UA Urobilinogen (test code = UA 1.0 0.1-1.0 Urobilinogen) [facility] [id number] 07:51:00 Test Item Value Reference Range Interpretation Comments UA Turbidity (test code Cloudy *ABN*(09/04/14 = UA Turbidity) 1:51 AM) [facility] AND [id number] 07:51:00 Test Item Value Reference Range Interpretation Comments UA Color (test code = Red *ABN*(09/04/14 1:51 UA Color) AM) [facility] AND [id number] 07:51:00 Test Item Value Reference Range Interpretation Comments UA Ketones (test code Negative *NA*(09/04/14 = UA Ketones) 1:51 AM) [facility] AND [id number] 07:51:00 Test Item Value Reference Range Interpretation Comments UA Glucose (test code Negative (09/04/14 1:51 = UA Glucose) AM) [facility] AND [id number] 07:51:00 Test Item Value Reference Range Interpretation Comments UA Protein (test code = Trace *ABN*(09/04/14 UA Protein) 1:51 AM) [facility] [id number] 07:51:00 Test Item Value Reference Range Interpretation Comments UA pH (test code = UA pH) 8.0 1 5.0-8.0 [facility] [id number] 07:51:00 Test Item Value Reference Range Interpretation Comments UA Spec Grav (test code = UA Spec 1.015 1 Grav) [facility] AND [id number] 07:51:00 Test Item Value Reference Range Interpretation Comments UA Bili (test code = Negative *NA*(09/04/14 UA Bili) 1:51 AM) [facility] AND [id number] 07:51:00 Test Item Value Reference Range Interpretation Comments UA Blood (test code = Large *ABN*(09/04/14 UA Blood) 1:51 AM) [facility] AND [id number] 07:51:00 Test Item Value Reference Range Interpretation Comments UA Leuk Est (test Negative (09/04/14 1:51 code = UA Leuk Est) AM) [facility] [id number] 07:51:00 Test Item Value Reference Range Interpretation Comments UA Nitrite (test code Negative (09/04/14 1:51 = UA Nitrite) AM) [facility] AND [id number] 07:51:00 Test Item Value Reference Range Interpretation Comments UA Amorph Joselin (test code = UA Few /HPF Amorph Joselin) [facility] [id number] 07:51:00 Test Item Value Reference Range Interpretation Comments UA RBC (test code 51-100 /HPF See_Comment [Automate d message] The = UA RBC) system which ge nerated this result tra nsmitted reference range : <=2. The reference r ozzy was not used to int erpret this result as normal/abnormal . [facility] [id number] 07:51:00 Test Item Value Reference Range Interpretation Comments UA WBC (test code = UA WBC) 6-10 /HPF [facility] [id number] 07:51:00 Test Item Value Reference Range Interpretation Comments UA Bacteria (test code = UA Few /HPF Bacteria) [facility] [id number] 07:51:00 Test Item Value Reference Range Interpretation Comments UA Sq Epi (test code = UA Sq Occasional /LPF Epi) [facility]2015-01-12 19:24:00 Test Item Value Reference Range Interpretation Comments Lipase Lvl (test code = Lipase Lvl) 104 73-393 [facility]2015-01-12 19:24:00 Test Item Value Reference Range Interpretation Comments eGFR (test code = eGFR) 109 [facility]2015-01-12 19:24:00 Test Item Value Reference Range Interpretation Comments Bili Total (test code = Bili Total) 0.6 0.2-1.3 [facility]2015-01-12 19:24:00 Test Item Value Reference Range Interpretation Comments Alk Phos (test code = Alk Phos) 72 39-136 [facility]2015-01-12 19:24:00 Test Item Value Reference Range Interpretation Comments Calcium Lvl (test code = Calcium Lvl) 8.8 8.5-10.5 [facility]2015-01-12 19:24:00 Test Item Value Reference Range Interpretation Comments CO2 (test code = CO2) 28 24-32 [facility]2015-01-12 19:24:00 Test Item Value Reference Range Interpretation Comments Chloride Lvl (test code = Chloride Lvl) 107 95-109 [facility]2015-01-12 19:24:00 Test Item Value Reference Range Interpretation Comments Potassium Lvl (test code = Potassium 3.9 3.5-5.1 Lvl) [facility]2015-01-12 19:24:00 Test Item Value Reference Range Interpretation Comments Glucose Lvl (test code = Glucose Lvl) 90 70-99 [facility]2015-01-12 19:24:00 Test Item Value Reference Range Interpretation Comments Sodium Lvl (test code = Sodium Lvl) 138 135-145 [place] [id number] 19:24:00 Test Item Value Reference Range Interpretation Comments BUN (test code = BUN) 7 7-22 [facility]2015-01-12 19:24:00 Test Item Value Reference Range Interpretation Comments Creatinine Lvl (test code = Creatinine 0.7 0.5-1.4 Lvl) [facility]2015-01-12 19:24:00 Test Item Value Reference Range Interpretation Comments ALT (test code = ALT) 23 See_Comment [Auto mated message] The system which ge nerated this result transmit gaye reference range : <=65. The reference range was not used to interpr et this result as satish l/abnormal. [facility]2015-01-12 19:24:00 Test Item Value Reference Range Interpretation Comments AST (test code = AST) 12 See_Comment [Auto mated message] The system which ge nerated this result transmit gaye reference range : <=37. The reference range was not used to interpr et this result as satish l/abnormal. [facility]2015-01-12 19:24:00 Test Item Value Reference Range Interpretation Comments Albumin Lvl (test code = Albumin Lvl) 3.8 3.5-5.0 [facility]2015-01-12 19:24:00 Test Item Value Reference Range Interpretation Comments Total Protein (test code = Total 8.0 6.4-8.4 Protein) [place] [id number] 19:24:00 Test Item Value Reference Range Interpretation Comments A/G Ratio (test code = A/G Ratio) 0.9 0.7-1.6 [facility]2015-01-12 19:24:00 Test Item Value Reference Range Interpretation Comments AGAP (test code = AGAP) 6.9 10.0-20.0 [facility]2015-01-12 19:24:00 Test Item Value Reference Range Interpretation Comments B/C Ratio (test code = B/C Ratio) 10 6-25 [facility]2015-01-12 19:24:00 Test Item Value Reference Range Interpretation Comments Globulin (test code = Globulin) 4.2 2.0-4.0 [facility]cuMVHFSJGHQEWSY8736-85-97 19:24:00 Test Item Value Reference Range Interpretation Comments S Preg (test code = S Negative *NA*(08/24/14 Preg) 1:24 PM) [facility] HospitalEjufoqxTLWLTLHBGL6008-06-51 19:24:00 Test Item Value Reference Range Interpretation Comments WBC (test code = WBC) 11.3 3.7-10.4 [facility] HospitalZnklvupTSPUUGRKZF8994-11-95 19:24:00 Test Item Value Reference Range Interpretation Comments RBC (test code = RBC) 4.75 4.20-5.40 [facility] HospitalYbnwlggRPWKMLZCMZ9871-15-89 19:24:00 Test Item Value Reference Range Interpretation Comments Platelet (test code = Platelet) 402 133-450 [facility] HospitalRdnhiotNZLPDSEELY3700-17-27 19:24:00 Test Item Value Reference Range Interpretation Comments MCV (test code = MCV) 89.9 80.0-98.0 [facility] HospitalUkkvolbKHKAVUQGFB8284-19-54 19:24:00 Test Item Value Reference Range Interpretation Comments Hct (test code = Hct) 42.7 36.0-48.0 [facility] HospitalVkjtbfjTGVTCCCJOT6872-42-26 19:24:00 Test Item Value Reference Range Interpretation Comments Hgb (test code = Hgb) 14.5 12.0-16.0 [facility] HospitalIetjepqZPZZCYKXFD3012-62-90 19:24:00 Test Item Value Reference Range Interpretation Comments RDW (test code = RDW) 13.5 11.5-14.5 [facility] HospitalEpvudylRZJRSHABJQ0459-51-83 19:24:00 Test Item Value Reference Range Interpretation Comments MCHC (test code = MCHC) 34.0 32.0-36.0 [facility] HospitalTppxsfmZSFTCSQKPG4086-58-40 19:24:00 Test Item Value Reference Range Interpretation Comments MCH (test code = MCH) 30.6 pg 27.0-31.0 [facility] HospitalJujfhdnQXIJGLAAME5345-49-47 19:24:00 Test Item Value Reference Range Interpretation Comments MPV (test code = MPV) 8.1 7.4-10.4 [place] [id number] 19:24:00 Test Item Value Reference Range Interpretation Comments Stomatocyte (test code = Stomatocyte) [facility] HospitalAlheyleNLMEHWSLGH7752-11-89 19:24:00 Test Item Value Reference Range Interpretation Comments Basophils # (test code 0.1 See_Comment [Aut omated message] The = Basophils #) system which generated this result tra nsmitted reference range : <=0.2. The reference r ozzy was not used to int erpret this result as normal/abnormal . [facility] HospitalNybulshYVXQBCIHGX0761-24-78 19:24:00 Test Item Value Reference Range Interpretation Comments Eosinophils # (test code 0.2 See_Comment [A utomated message] The = Eosinophils #) system whic h generated this result tra nsmitted reference range : <=0.5. The reference r ozzy was not used to int erpret this result as normal/abnormal . [facility] HospitalUborrcpVHOIZZXHPK6875-24-09 19:24:00 Test Item Value Reference Range Interpretation Comments Hypochrom (test code = 1+ (08/24/14 1:24 PM) Hypochrom) [facility] HospitalZucpjspSEUUUZICGN4711-05-75 19:24:00 Test Item Value Reference Range Interpretation Comments Lymphocytes # (test code = Lymphocytes 2.8 1.0-5.5 #) [facility] HospitalVxgmpfcXGCYCZJSOW4789-30-31 19:24:00 Test Item Value Reference Range Interpretation Comments Segs-Bands # (test code = Segs-Bands #) 8.1 1.5-8.1 [facility] HospitalQqxeydyCUOSQKVBRC4119-28-55 19:24:00 Test Item Value Reference Range Interpretation Comments Monocytes # (test code 0.2 See_Comment [Aut omated message] The = Monocytes #) system which generated this result tra nsmitted reference range : <=0.8. The reference r ozzy was not used to int erpret this result as normal/abnormal . [facility] HospitalBybqfnmJEVGJNSIAJ7732-29-06 19:24:00 Test Item Value Reference Range Interpretation Comments Lymphocytes (test code = Lymphocytes) 24.5 20.0-40.0 [facility] HospitalTxgigicHJZBHVGHAP4921-02-96 19:24:00 Test Item Value Reference Range Interpretation Comments Segs (test code = Segs) 71.8 45.0-75.0 [facility] HospitalErgdbthMPGDFVCUEI5761-02-64 19:24:00 Test Item Value Reference Range Interpretation Comments Basophils (test code = 0.6 See_Comment [Aut omated message] The Basophils) system which ge nerated this result tra nsmitted reference range : <=1.0. The reference r ozzy was not used to int erpret this result as normal/abnormal . [facility] HospitalZobfuaiZJDAJZTPMQ8227-09-18 19:24:00 Test Item Value Reference Range Interpretation Comments Monocytes (test code = Monocytes) 1.5 2.0-12.0 [facility] HospitalUyaszdlBCIMYUMRBR2183-91-93 19:24:00 Test Item Value Reference Range Interpretation Comments Eosinophils (test code = 1.6 See_Comment [A utomated message] The Eosinophils) system which ge nerated this result tra nsmitted reference range : <=4.0. The reference r ozzy was not used to int erpret this result as normal/abnormal . [facility] Hospit[id number] 19:24:00 Test Item Value Reference Range Interpretation Comments Plt Morph (test code = Normal (08/24/14 1:24 Plt Morph) PM) [facility] [id number] 19:24:00 Test Item Value Reference Range Interpretation Comments UA Sq Epi (test code = UA Sq Occasional /LPF Epi) [facility] [id number] 19:24:00 Test Item Value Reference Range Interpretation Comments UA Bacteria (test code = UA Occasional /HPF Bacteria) [facility] AND [id number] 19:24:00 Test Item Value Reference Range Interpretation Comments UA Mucus (test code = None Seen (08/24/14 UA Mucus) 1:24 PM) [facility] [id number] 19:24:00 Test Item Value Reference Range Interpretation Comments UA WBC (test code = UA WBC) 0-2 /HPF [facility] AND [id number] 19:24:00 Test Item Value Reference Range Interpretation Comments UA RBC (test code = 0-2 /HPF See_Comment [Automa gaye message] The UA RBC) system which ge nerated this result tra nsmitted reference range : <=2. The reference range was not used to interpr et this result as satish l/abnormal. [facility] AND [id number] 19:24:00 Test Item Value Reference Range Interpretation Comments UA Leuk Est (test Moderate *ABN*(08/24/14 code = UA Leuk Est) 1:24 PM) [facility] AND [id number] 19:24:00 Test Item Value Reference Range Interpretation Comments UA Nitrite (test code Negative (08/24/14 1:24 = UA Nitrite) PM) [facility] AND [id number] 19:24:00 Test Item Value Reference Range Interpretation Comments UA Urobilinogen (test code = UA 0.2 0.1-1.0 Urobilinogen) [facility] AND [id number] 19:24:00 Test Item Value Reference Range Interpretation Comments UA Ketones (test code Negative *NA*(08/24/14 = UA Ketones) 1:24 PM) [facility] AND [id number] 19:24:00 Test Item Value Reference Range Interpretation Comments UA Blood (test code = Negative (08/24/14 1:24 UA Blood) PM) [facility] AND [id number] 19:24:00 Test Item Value Reference Range Interpretation Comments UA Bili (test code = Negative *NA*(08/24/14 UA Bili) 1:24 PM) [facility] AND [id number] 19:24:00 Test Item Value Reference Range Interpretation Comments UA Color (test code = Yellow *NA*(08/24/14 UA Color) 1:24 PM) [facility] AND [id number] 19:24:00 Test Item Value Reference Range Interpretation Comments UA Glucose (test code Negative (08/24/14 1:24 = UA Glucose) PM) [facility] AND [id number] 19:24:00 Test Item Value Reference Range Interpretation Comments UA Protein (test code Negative (08/24/14 1:24 = UA Protein) PM) [facility] AND [id number] 19:24:00 Test Item Value Reference Range Interpretation Comments UA pH (test code = UA pH) 6.0 1 5.0-8.0 [facility] AND [id number] 19:24:00 Test Item Value Reference Range Interpretation Comments UA Spec Grav (test code *NA*(08/24/14 1:24 PM) = UA Spec Grav) [facility] AND [id number] 19:24:00 Test Item Value Reference Range Interpretation Comments UA Turbidity (test code = Clear (08/24/14 1:24 UA Turbidity) PM) [facility]2015-01-12 19:24:00 Test Item Value Reference Range Interpretation Comments Lipase Lvl (test code = Lipase Lvl) 104 73-393 [facility]2015-01-12 19:24:00 Test Item Value Reference Range Interpretation Comments eGFR (test code = eGFR) 109 [facility]2015-01-12 19:24:00 Test Item Value Reference Range Interpretation Comments Bili Total (test code = Bili Total) 0.6 0.2-1.3 [facility]2015-01-12 19:24:00 Test Item Value Reference Range Interpretation Comments Alk Phos (test code = Alk Phos) 72 39-136 [facility]2015-01-12 19:24:00 Test Item Value Reference Range Interpretation Comments Calcium Lvl (test code = Calcium Lvl) 8.8 8.5-10.5 [facility]2015-01-12 19:24:00 Test Item Value Reference Range Interpretation Comments CO2 (test code = CO2) 28 24-32 [facility]2015-01-12 19:24:00 Test Item Value Reference Range Interpretation Comments Chloride Lvl (test code = Chloride Lvl) 107 95-109 [facility]2015-01-12 19:24:00 Test Item Value Reference Range Interpretation Comments Potassium Lvl (test code = Potassium 3.9 3.5-5.1 Lvl) [facility]2015-01-12 19:24:00 Test Item Value Reference Range Interpretation Comments Glucose Lvl (test code = Glucose Lvl) 90 70-99 [facility]2015-01-12 19:24:00 Test Item Value Reference Range Interpretation Comments Sodium Lvl (test code = Sodium Lvl) 138 135-145 [facility]2015-01-12 19:24:00 Test Item Value Reference Range Interpretation Comments BUN (test code = BUN) 7 7-22 [facility]2015-01-12 19:24:00 Test Item Value Reference Range Interpretation Comments Creatinine Lvl (test code = Creatinine 0.7 0.5-1.4 Lvl) [facility]2015-01-12 19:24:00 Test Item Value Reference Range Interpretation Comments ALT (test code = ALT) 23 See_Comment [Auto mated message] The system which ge nerated this result transmit gaye reference range : <=65. The reference range was not used to interpr et this result as satish l/abnormal. [facility]2015-01-12 19:24:00 Test Item Value Reference Range Interpretation Comments AST (test code = AST) 12 See_Comment [Auto mated message] The system which ge nerated this result transmit gaye reference range : <=37. The reference range was not used to interpr et this result as satish l/abnormal. [facility]2015-01-12 19:24:00 Test Item Value Reference Range Interpretation Comments Albumin Lvl (test code = Albumin Lvl) 3.8 3.5-5.0 [facility]2015-01-12 19:24:00 Test Item Value Reference Range Interpretation Comments Total Protein (test code = Total 8.0 6.4-8.4 Protein) [facility]2015-01-12 19:24:00 Test Item Value Reference Range Interpretation Comments A/G Ratio (test code = A/G Ratio) 0.9 0.7-1.6 [facility]2015-01-12 19:24:00 Test Item Value Reference Range Interpretation Comments AGAP (test code = AGAP) 6.9 10.0-20.0 [facility]2015-01-12 19:24:00 Test Item Value Reference Range Interpretation Comments B/C Ratio (test code = B/C Ratio) 10 6-25 [facility]2015-01-12 19:24:00 Test Item Value Reference Range Interpretation Comments Globulin (test code = Globulin) 4.2 2.0-4.0 [id number] 19:24:00 Test Item Value Reference Range Interpretation Comments S Preg (test code = S Negative *NA*(08/24/14 Preg) 1:24 PM) [facility] 19:24:00 Test Item Value Reference Range Interpretation Comments WBC (test code = WBC) 11.3 3.7-10.4 [facility] HospitalSulvzlyYAXAHOKSBQ7490-74-69 19:24:00 Test Item Value Reference Range Interpretation Comments RBC (test code = RBC) 4.75 4.20-5.40 [facility] HospitalZ[id number] 19:24:00 Test Item Value Reference Range Interpretation Comments Platelet (test code = Platelet) 402 133-450 [facility] HospitalEmaumuzHTFNPWUHHF4166-76-73 19:24:00 Test Item Value Reference Range Interpretation Comments MCV (test code = MCV) 89.9 80.0-98.0 [facility] HospitalUrpdgtgEEDVDUGPRQ3181-76-14 19:24:00 Test Item Value Reference Range Interpretation Comments Hct (test code = Hct) 42.7 36.0-48.0 [facility] HospitalCuzbgitUAJYNVUEQE6678-79-32 19:24:00 Test Item Value Reference Range Interpretation Comments Hgb (test code = Hgb) 14.5 12.0-16.0 [facility] HospitalLrjoimmXYVQYFGVIA9285-81-73 19:24:00 Test Item Value Reference Range Interpretation Comments RDW (test code = RDW) 13.5 11.5-14.5 [facility] HospitalHwohndeOHKYBYRJNW2326-17-47 19:24:00 Test Item Value Reference Range Interpretation Comments MCHC (test code = MCHC) 34.0 32.0-36.0 [facility] HospitalKrjvdgiHXMHLBGQKV7892-23-16 19:24:00 Test Item Value Reference Range Interpretation Comments MCH (test code = MCH) 30.6 pg 27.0-31.0 [facility] HospitalQqishkaHLZCPWOJAL6808-74-86 19:24:00 Test Item Value Reference Range Interpretation Comments MPV (test code = MPV) 8.1 7.4-10.4 [facility] HospitalPijrydsSGUDUIBPJE6623-36-01 19:24:00 Test Item Value Reference Range Interpretation Comments Stomatocyte (test code = Stomatocyte) [facility] HospitalXnqcfsyGIIDHEOQSW4096-33-08 19:24:00 Test Item Value Reference Range Interpretation Comments Basophils # (test code 0.1 See_Comment [Aut omated message] The = Basophils #) system which generated this result tra nsmitted reference range : <=0.2. The reference r ozzy was not used to int erpret this result as normal/abnormal . [facility] HospitalIbbgnfgMMXTDQTPXA5523-08-92 19:24:00 Test Item Value Reference Range Interpretation Comments Eosinophils # (test code 0.2 See_Comment [A utomated message] The = Eosinophils #) system whic h generated this result tra nsmitted reference range : <=0.5. The reference r ozzy was not used to int erpret this result as normal/abnormal . [facility] HospitalAjrwoadLDDLLNXHAV2346-09-76 19:24:00 Test Item Value Reference Range Interpretation Comments Hypochrom (test code = 1+ (08/24/14 1:24 PM) Hypochrom) [facility] Hospit[id number] 19:24:00 Test Item Value Reference Range Interpretation Comments Lymphocytes # (test code = Lymphocytes 2.8 1.0-5.5 #) [facility] Hospit[id number] 19:24:00 Test Item Value Reference Range Interpretation Comments Segs-Bands # (test code = Segs-Bands #) 8.1 1.5-8.1 [facility] HospitalDmrnkikGMMDYRDOXY8997-14-08 19:24:00 Test Item Value Reference Range Interpretation Comments Monocytes # (test code 0.2 See_Comment [Aut omated message] The = Monocytes #) system which generated this result tra nsmitted reference range : <=0.8. The reference r ozzy was not used to int erpret this result as normal/abnormal . [facility] HospitalKulspsiKCVJAKZFTE3126-84-77 19:24:00 Test Item Value Reference Range Interpretation Comments Lymphocytes (test code = Lymphocytes) 24.5 20.0-40.0 [facility] HospitalRclrwpkSTIZTLGXWI5680-99-39 19:24:00 Test Item Value Reference Range Interpretation Comments Segs (test code = Segs) 71.8 45.0-75.0 [facility] HospitalRpqdcixPTJEHVPQGE2618-98-77 19:24:00 Test Item Value Reference Range Interpretation Comments Basophils (test code = 0.6 See_Comment [Aut omated message] The Basophils) system which ge nerated this result tra nsmitted reference range : <=1.0. The reference r ozzy was not used to int erpret this result as normal/abnormal . [facility] HospitalStwxpaiPXTZVZTXCU7356-97-75 19:24:00 Test Item Value Reference Range Interpretation Comments Monocytes (test code = Monocytes) 1.5 2.0-12.0 [facility] HospitalQgqxoafEJWRTWPEXJ0232-00-23 19:24:00 Test Item Value Reference Range Interpretation Comments Eosinophils (test code = 1.6 See_Comment [A utomated message] The Eosinophils) system which ge nerated this result tra nsmitted reference range : <=4.0. The reference r ozzy was not used to int erpret this result as normal/abnormal . [facility] Hospit[id number] 19:24:00 Test Item Value Reference Range Interpretation Comments Plt Morph (test code = Normal (08/24/14 1:24 Plt Morph) PM) [facility] AND [id number] 19:24:00 Test Item Value Reference Range Interpretation Comments UA Sq Epi (test code = UA Sq Occasional /LPF Epi) [facility] AND [id number] 19:24:00 Test Item Value Reference Range Interpretation Comments UA Bacteria (test code = UA Occasional /HPF Bacteria) [facility] AND [id number] 19:24:00 Test Item Value Reference Range Interpretation Comments UA Mucus (test code = None Seen (08/24/14 UA Mucus) 1:24 PM) [facility] AND [id number] 19:24:00 Test Item Value Reference Range Interpretation Comments UA WBC (test code = UA WBC) 0-2 /HPF [facility] AND [id number] 19:24:00 Test Item Value Reference Range Interpretation Comments UA RBC (test code = 0-2 /HPF See_Comment [Automa gaye message] The UA RBC) system which ge nerated this result tra nsmitted reference range : <=2. The reference range was not used to interpr et this result as satish l/abnormal. [facility] AND [id number] 19:24:00 Test Item Value Reference Range Interpretation Comments UA Leuk Est (test Moderate *ABN*(08/24/14 code = UA Leuk Est) 1:24 PM) [facility] AND [id number] 19:24:00 Test Item Value Reference Range Interpretation Comments UA Nitrite (test code Negative (08/24/14 1:24 = UA Nitrite) PM) [facility] AND [id number] 19:24:00 Test Item Value Reference Range Interpretation Comments UA Urobilinogen (test code = UA 0.2 0.1-1.0 Urobilinogen) [facility] AND [id number] 19:24:00 Test Item Value Reference Range Interpretation Comments UA Ketones (test code Negative *NA*(08/24/14 = UA Ketones) 1:24 PM) [facility] AND [id number] 19:24:00 Test Item Value Reference Range Interpretation Comments UA Blood (test code = Negative (08/24/14 1:24 UA Blood) PM) [facility] AND [id number] 19:24:00 Test Item Value Reference Range Interpretation Comments UA Bili (test code = Negative *NA*(08/24/14 UA Bili) 1:24 PM) [facility] AND [id number] 19:24:00 Test Item Value Reference Range Interpretation Comments UA Color (test code = Yellow *NA*(08/24/14 UA Color) 1:24 PM) [facility] AND [id number] 19:24:00 Test Item Value Reference Range Interpretation Comments UA Glucose (test code Negative (08/24/14 1:24 = UA Glucose) PM) [facility] AND [id number] 19:24:00 Test Item Value Reference Range Interpretation Comments UA Protein (test code Negative (08/24/14 1:24 = UA Protein) PM) [facility] AND [id number] 19:24:00 Test Item Value Reference Range Interpretation Comments UA pH (test code = UA pH) 6.0 1 5.0-8.0 [facility] AND [id number] 19:24:00 Test Item Value Reference Range Interpretation Comments UA Spec Grav (test code *NA*(08/24/14 1:24 PM) = UA Spec Grav) [facility] AND [id number] 19:24:00 Test Item Value Reference Range Interpretation Comments UA Turbidity (test code = Clear (08/24/14 1:24 UA Turbidity) PM) [facility] [id number] 19:24:00 Test Item Value Reference Range Interpretation Comments Lipase Lvl (test code = Lipase Lvl) 104 73-393 [facility] [id number] 19:24:00 Test Item Value Reference Range Interpretation Comments eGFR (test code = eGFR) 109 [facility]2015-01-12 19:24:00 Test Item Value Reference Range Interpretation Comments Bili Total (test code = Bili Total) 0.6 0.2-1.3 [facility]2015-01-12 19:24:00 Test Item Value Reference Range Interpretation Comments Alk Phos (test code = Alk Phos) 72 39-136 [facility]2015-01-12 19:24:00 Test Item Value Reference Range Interpretation Comments Calcium Lvl (test code = Calcium Lvl) 8.8 8.5-10.5 [facility]2015-01-12 19:24:00 Test Item Value Reference Range Interpretation Comments CO2 (test code = CO2) 28 24-32 [facility]2015-01-12 19:24:00 Test Item Value Reference Range Interpretation Comments Chloride Lvl (test code = Chloride Lvl) 107 95-109 [facility]2015-01-12 19:24:00 Test Item Value Reference Range Interpretation Comments Potassium Lvl (test code = Potassium 3.9 3.5-5.1 Lvl) [facility]2015-01-12 19:24:00 Test Item Value Reference Range Interpretation Comments Glucose Lvl (test code = Glucose Lvl) 90 70-99 [facility]2015-01-12 19:24:00 Test Item Value Reference Range Interpretation Comments Sodium Lvl (test code = Sodium Lvl) 138 135-145 [facility]2015-01-12 19:24:00 Test Item Value Reference Range Interpretation Comments BUN (test code = BUN) 7 7-22 [facility]2015-01-12 19:24:00 Test Item Value Reference Range Interpretation Comments Creatinine Lvl (test code = Creatinine 0.7 0.5-1.4 Lvl) [facility]2015-01-12 19:24:00 Test Item Value Reference Range Interpretation Comments ALT (test code = ALT) 23 See_Comment [Auto mated message] The system which ge nerated this result transmit gaye reference range : <=65. The reference range was not used to interpr et this result as satish l/abnormal. [facility]2015-01-12 19:24:00 Test Item Value Reference Range Interpretation Comments AST (test code = AST) 12 See_Comment [Auto mated message] The system which ge nerated this result transmit gaye reference range : <=37. The reference range was not used to interpr et this result as satish l/abnormal. [facility]2015-01-12 19:24:00 Test Item Value Reference Range Interpretation Comments Albumin Lvl (test code = Albumin Lvl) 3.8 3.5-5.0 [facility]2015-01-12 19:24:00 Test Item Value Reference Range Interpretation Comments Total Protein (test code = Total 8.0 6.4-8.4 Protein) [facility]2015-01-12 19:24:00 Test Item Value Reference Range Interpretation Comments A/G Ratio (test code = A/G Ratio) 0.9 0.7-1.6 [facility]2015-01-12 19:24:00 Test Item Value Reference Range Interpretation Comments AGAP (test code = AGAP) 6.9 10.0-20.0 [facility]2015-01-12 19:24:00 Test Item Value Reference Range Interpretation Comments B/C Ratio (test code = B/C Ratio) 10 6-25 [facility]2015-01-12 19:24:00 Test Item Value Reference Range Interpretation Comments Globulin (test code = Globulin) 4.2 2.0-4.0 [facility]OYUITOKRPS1022-12-68 19:24:00 Test Item Value Reference Range Interpretation Comments S Preg (test code = S Negative *NA*(08/24/14 Preg) 1:24 PM) [facility] Hospit[id number] 19:24:00 Test Item Value Reference Range Interpretation Comments WBC (test code = WBC) 11.3 3.7-10.4 [facility] HospitalKvajfyxDRNOBLZSII2807-29-01 19:24:00 Test Item Value Reference Range Interpretation Comments RBC (test code = RBC) 4.75 4.20-5.40 [facility] HospitalRhtnikjLUGOZZPDNU1138-30-90 19:24:00 Test Item Value Reference Range Interpretation Comments Platelet (test code = Platelet) 402 133-450 [facility] HospitalIbrvjrcKRJAYJAHLP4308-42-98 19:24:00 Test Item Value Reference Range Interpretation Comments MCV (test code = MCV) 89.9 80.0-98.0 [facility] HospitalYjgafidNAUXFLUORL3128-58-59 19:24:00 Test Item Value Reference Range Interpretation Comments Hct (test code = Hct) 42.7 36.0-48.0 [facility] HospitalPzlmbvfUKTHQBNEHB4366-86-88 19:24:00 Test Item Value Reference Range Interpretation Comments Hgb (test code = Hgb) 14.5 12.0-16.0 [facility] HospitalIzzsetgEPBQAYTUPS7132-84-30 19:24:00 Test Item Value Reference Range Interpretation Comments RDW (test code = RDW) 13.5 11.5-14.5 [facility] HospitalRyrgrndZIHXSERPTR5834-34-74 19:24:00 Test Item Value Reference Range Interpretation Comments MCHC (test code = MCHC) 34.0 32.0-36.0 [facility] HospitalFzpepwbXXTLEKJSPR3995-13-22 19:24:00 Test Item Value Reference Range Interpretation Comments MCH (test code = MCH) 30.6 pg 27.0-31.0 [facility] HospitalQtpozojAJDLXUWESA5656-86-70 19:24:00 Test Item Value Reference Range Interpretation Comments MPV (test code = MPV) 8.1 7.4-10.4 [facility] HospitalQnukzqiSCPTZJOUTW8263-38-37 19:24:00 Test Item Value Reference Range Interpretation Comments Stomatocyte (test code = Stomatocyte) [facility] HospitalUafzcrdTKZXKFSIGI0015-71-45 19:24:00 Test Item Value Reference Range Interpretation Comments Basophils # (test code 0.1 See_Comment [Aut omated message] The = Basophils #) system which generated this result tra nsmitted reference range : <=0.2. The reference r ozzy was not used to int erpret this result as normal/abnormal . [facility] HospitalShjcjqhUNFJKJINEY9474-74-58 19:24:00 Test Item Value Reference Range Interpretation Comments Eosinophils # (test code 0.2 See_Comment [A utomated message] The = Eosinophils #) system whic h generated this result tra nsmitted reference range : <=0.5. The reference r ozzy was not used to int erpret this result as normal/abnormal . [facility] Hospit[id number] 19:24:00 Test Item Value Reference Range Interpretation Comments Hypochrom (test code = 1+ (1/12/15 1:24 PM) Hypochrom) [facility] Hospit[id number] 19:24:00 Test Item Value Reference Range Interpretation Comments Lymphocytes # (test code = Lymphocytes 2.8 1.0-5.5 #) [facility] Hospit[id number] 19:24:00 Test Item Value Reference Range Interpretation Comments Segs-Bands # (test code = Segs-Bands #) 8.1 1.5-8.1 [facility] HospitalPcitapjOKRDLRIXTH5422-53-77 19:24:00 Test Item Value Reference Range Interpretation Comments Monocytes # (test code 0.2 See_Comment [Aut omated message] The = Monocytes #) system which generated this result tra nsmitted reference range : <=0.8. The reference r ozzy was not used to int erpret this result as normal/abnormal . [facility] HospitalCcwrnaxDXQHKNKEFM0213-72-63 19:24:00 Test Item Value Reference Range Interpretation Comments Lymphocytes (test code = Lymphocytes) 24.5 20.0-40.0 [facility] HospitalRfzkyufKEBBNUYEBC7448-20-57 19:24:00 Test Item Value Reference Range Interpretation Comments Segs (test code = Segs) 71.8 45.0-75.0 [facility] HospitalWxxqodwGEXWMHYBIB3376-51-67 19:24:00 Test Item Value Reference Range Interpretation Comments Basophils (test code = 0.6 See_Comment [Aut omated message] The Basophils) system which ge nerated this result tra nsmitted reference range : <=1.0. The reference r ozzy was not used to int erpret this result as normal/abnormal . [facility] HospitalGxhqgjpBLTPGVMNUV7995-70-25 19:24:00 Test Item Value Reference Range Interpretation Comments Monocytes (test code = Monocytes) 1.5 2.0-12.0 [facility] HospitalMsmfonkZGVHFTYEAX9861-64-33 19:24:00 Test Item Value Reference Range Interpretation Comments Eosinophils (test code = 1.6 See_Comment [A utomated message] The Eosinophils) system which ge nerated this result tra nsmitted reference range : <=4.0. The reference r ozzy was not used to int erpret this result as normal/abnormal . [facility] HospitalUikugsrXGEXGMOVBZ4892-30-28 19:24:00 Test Item Value Reference Range Interpretation Comments Plt Morph (test code = Normal (08/24/14 1:24 Plt Morph) PM) [facility] AND [id number] 19:24:00 Test Item Value Reference Range Interpretation Comments UA Sq Epi (test code = UA Sq Occasional /LPF Epi) [facility] [id number] 19:24:00 Test Item Value Reference Range Interpretation Comments UA Bacteria (test code = UA Occasional /HPF Bacteria) [facility] AND [id number] 19:24:00 Test Item Value Reference Range Interpretation Comments UA Mucus (test code = None Seen (08/24/14 UA Mucus) 1:24 PM) [facility] AND [id number] 19:24:00 Test Item Value Reference Range Interpretation Comments UA WBC (test code = UA WBC) 0-2 /HPF [facility] AND [id number] 19:24:00 Test Item Value Reference Range Interpretation Comments UA RBC (test code = 0-2 /HPF See_Comment [Automa gaye message] The UA RBC) system which ge nerated this result tra nsmitted reference range : <=2. The reference range was not used to interpr et this result as satish l/abnormal. [facility] AND [id number] 19:24:00 Test Item Value Reference Range Interpretation Comments UA Leuk Est (test Moderate *ABN*(08/24/14 code = UA Leuk Est) 1:24 PM) [facility] AND [id number] 19:24:00 Test Item Value Reference Range Interpretation Comments UA Nitrite (test code Negative (08/24/14 1:24 = UA Nitrite) PM) [facility] AND [id number] 19:24:00 Test Item Value Reference Range Interpretation Comments UA Urobilinogen (test code = UA 0.2 0.1-1.0 Urobilinogen) [facility] AND [id number] 19:24:00 Test Item Value Reference Range Interpretation Comments UA Ketones (test code Negative *NA*(08/24/14 = UA Ketones) 1:24 PM) [facility] AND [id number] 19:24:00 Test Item Value Reference Range Interpretation Comments UA Blood (test code = Negative (08/24/14 1:24 UA Blood) PM) [facility] AND [id number] 19:24:00 Test Item Value Reference Range Interpretation Comments UA Bili (test code = Negative *NA*(08/24/14 UA Bili) 1:24 PM) [facility] AND [id number] 19:24:00 Test Item Value Reference Range Interpretation Comments UA Color (test code = Yellow *NA*(08/24/14 UA Color) 1:24 PM) [facility] AND [id number] 19:24:00 Test Item Value Reference Range Interpretation Comments UA Glucose (test code Negative (08/24/14 1:24 = UA Glucose) PM) [facility] AND [id number] 19:24:00 Test Item Value Reference Range Interpretation Comments UA Protein (test code Negative (08/24/14 1:24 = UA Protein) PM) [facility] AND [id number] 19:24:00 Test Item Value Reference Range Interpretation Comments UA pH (test code = UA pH) 6.0 1 5.0-8.0 [facility] AND [id number] 19:24:00 Test Item Value Reference Range Interpretation Comments UA Spec Grav (test code *NA*(08/24/14 1:24 PM) = UA Spec Grav) [facility] [facility] AND [id number] 19:24:00 Test Item Value Reference Range Interpretation Comments UA Turbidity (test code = Clear (08/24/14 1:24 UA Turbidity) PM) [facility]2015-01-12 19:24:00 Test Item Value Reference Range Interpretation Comments Lipase Lvl (test code = Lipase Lvl) 104 73-393 [facility]2015-01-12 19:24:00 Test Item Value Reference Range Interpretation Comments eGFR (test code = eGFR) 109 [facility]2015-01-12 19:24:00 Test Item Value Reference Range Interpretation Comments Bili Total (test code = Bili Total) 0.6 0.2-1.3 [facility]2015-01-12 19:24:00 Test Item Value Reference Range Interpretation Comments Alk Phos (test code = Alk Phos) 72 39-136 [facility]2015-01-12 19:24:00 Test Item Value Reference Range Interpretation Comments Calcium Lvl (test code = Calcium Lvl) 8.8 8.5-10.5 [facility]2015-01-12 19:24:00 Test Item Value Reference Range Interpretation Comments CO2 (test code = CO2) 28 24-32 [facility]2015-01-12 19:24:00 Test Item Value Reference Range Interpretation Comments Chloride Lvl (test code = Chloride Lvl) 107 95-109 [facility]2015-01-12 19:24:00 Test Item Value Reference Range Interpretation Comments Potassium Lvl (test code = Potassium 3.9 3.5-5.1 Lvl) [place]135-01-12 19:24:00 Test Item Value Reference Range Interpretation Comments Glucose Lvl (test code = Glucose Lvl) 90 70-99 [facility]2015-01-12 19:24:00 Test Item Value Reference Range Interpretation Comments Sodium Lvl (test code = Sodium Lvl) 138 135-145 [facility]2015-01-12 19:24:00 Test Item Value Reference Range Interpretation Comments BUN (test code = BUN) 7 7-22 [facility]2015-01-12 19:24:00 Test Item Value Reference Range Interpretation Comments Creatinine Lvl (test code = Creatinine 0.7 0.5-1.4 Lvl) [facility]2015-01-12 19:24:00 Test Item Value Reference Range Interpretation Comments ALT (test code = ALT) 23 See_Comment [Auto mated message] The system which ge nerated this result transmit gaye reference range : <=65. The reference range was not used to interpr et this result as satish l/abnormal. [facility]2015-01-12 19:24:00 Test Item Value Reference Range Interpretation Comments AST (test code = AST) 12 See_Comment [Auto mated message] The system which ge nerated this result transmit gaye reference range : <=37. The reference range was not used to interpr et this result as satish l/abnormal. [place] 358135-01-12 19:24:00 Test Item Value Reference Range Interpretation Comments Albumin Lvl (test code = Albumin Lvl) 3.8 3.5-5.0 [facility]2015-01-12 19:24:00 Test Item Value Reference Range Interpretation Comments Total Protein (test code = Total 8.0 6.4-8.4 Protein) [facility]2015-01-12 19:24:00 Test Item Value Reference Range Interpretation Comments A/G Ratio (test code = A/G Ratio) 0.9 0.7-1.6 [facility]2015-01-12 19:24:00 Test Item Value Reference Range Interpretation Comments AGAP (test code = AGAP) 6.9 10.0-20.0 [facility]2015-01-12 19:24:00 Test Item Value Reference Range Interpretation Comments B/C Ratio (test code = B/C Ratio) 10 6-25 [facility]2015-01-12 19:24:00 Test Item Value Reference Range Interpretation Comments Globulin (test code = Globulin) 4.2 2.0-4.0 [place] [id number] 19:24:00 Test Item Value Reference Range Interpretation Comments S Preg (test code = S Negative *NA*(08/24/14 Preg) 1:24 PM) [facility] Hospit[id number] 19:24:00 Test Item Value Reference Range Interpretation Comments WBC (test code = WBC) 11.3 3.7-10.4 [facility] HospitalWfkfmguYPPMWYFCWO5611-00-11 19:24:00 Test Item Value Reference Range Interpretation Comments RBC (test code = RBC) 4.75 4.20-5.40 [facility] HospitalIgswnrwUUCURVOACG5153-70-72 19:24:00 Test Item Value Reference Range Interpretation Comments Platelet (test code = Platelet) 402 133-450 [facility] HospitalRfhtnyoRMIKSGXNJI8306-09-36 19:24:00 Test Item Value Reference Range Interpretation Comments MCV (test code = MCV) 89.9 80.0-98.0 [facility] HospitalZytecdqYTJTJSXHXV1346-27-33 19:24:00 Test Item Value Reference Range Interpretation Comments Hct (test code = Hct) 42.7 36.0-48.0 [facility] HospitalNsyobppDPNCTDLOPQ9102-91-47 19:24:00 Test Item Value Reference Range Interpretation Comments Hgb (test code = Hgb) 14.5 12.0-16.0 [facility] HospitalGjxsedhDXRRCDCKTZ9348-18-19 19:24:00 Test Item Value Reference Range Interpretation Comments RDW (test code = RDW) 13.5 11.5-14.5 [facility] HospitalBhzxshaNVBUTHMRUK1007-48-55 19:24:00 Test Item Value Reference Range Interpretation Comments MCHC (test code = MCHC) 34.0 32.0-36.0 [facility] HospitalYzmpjwcZDTXAQFMKE5955-78-72 19:24:00 Test Item Value Reference Range Interpretation Comments MCH (test code = MCH) 30.6 pg 27.0-31.0 [facility] HospitalUzysovkJOIDKRNLSX7027-68-04 19:24:00 Test Item Value Reference Range Interpretation Comments MPV (test code = MPV) 8.1 7.4-10.4 [facility] HospitalSnqmvyfLOIUKCEEMO0110-56-93 19:24:00 Test Item Value Reference Range Interpretation Comments Stomatocyte (test code = Stomatocyte) [facility] HospitalPjetmeePMKGQGFLBR3055-97-28 19:24:00 Test Item Value Reference Range Interpretation Comments Basophils # (test code 0.1 See_Comment [Aut omated message] The = Basophils #) system which generated this result tra nsmitted reference range : <=0.2. The reference r ozzy was not used to int erpret this result as normal/abnormal . [facility] Hospit[id number] 19:24:00 Test Item Value Reference Range Interpretation Comments Eosinophils # (test code 0.2 See_Comment [A utomated message] The = Eosinophils #) system whic h generated this result tra nsmitted reference range : <=0.5. The reference r ozzy was not used to int erpret this result as normal/abnormal . [facility] Hos[id number] 19:24:00 Test Item Value Reference Range Interpretation Comments Hypochrom (test code = 1+ (08/24/14 1:24 PM) Hypochrom) [facility] HospitalVhuzwlbABNHHXKRQX3530-06-81 19:24:00 Test Item Value Reference Range Interpretation Comments Lymphocytes # (test code = Lymphocytes 2.8 1.0-5.5 #) [facility] Hospit[id number] 19:24:00 Test Item Value Reference Range Interpretation Comments Segs-Bands # (test code = Segs-Bands #) 8.1 1.5-8.1 [facility] Hos[id number] 19:24:00 Test Item Value Reference Range Interpretation Comments Monocytes # (test code 0.2 See_Comment [Aut omated message] The = Monocytes #) system which generated this result tra nsmitted reference range : <=0.8. The reference r ozzy was not used to int erpret this result as normal/abnormal . [facility] HospitalYupkobzBTHOSBNBUZ5319-26-22 19:24:00 Test Item Value Reference Range Interpretation Comments Lymphocytes (test code = Lymphocytes) 24.5 20.0-40.0 [facility] HospitalGzfpnyaIMQCVWULNX1828-72-39 19:24:00 Test Item Value Reference Range Interpretation Comments Segs (test code = Segs) 71.8 45.0-75.0 [facility] HospitalPenhfveJTHOFZKGVZ7861-40-11 19:24:00 Test Item Value Reference Range Interpretation Comments Basophils (test code = 0.6 See_Comment [Aut omated message] The Basophils) system which ge nerated this result tra nsmitted reference range : <=1.0. The reference r ozzy was not used to int erpret this result as normal/abnormal . [facility] HospitalZ[id number] 19:24:00 Test Item Value Reference Range Interpretation Comments Monocytes (test code = Monocytes) 1.5 2.0-12.0 [facility] HospitalSuudgkeTNHCWASZTC6423-57-22 19:24:00 Test Item Value Reference Range Interpretation Comments Eosinophils (test code = 1.6 See_Comment [A utomated message] The Eosinophils) system which ge nerated this result tra nsmitted reference range : <=4.0. The reference r ozzy was not used to int erpret this result as normal/abnormal . [facility] HospitalXnojtsxPLORUKGZWP1265-10-19 19:24:00 Test Item Value Reference Range Interpretation Comments Plt Morph (test code = Normal (08/24/14 1:24 Plt Morph) PM) [facility] [id number] 19:24:00 Test Item Value Reference Range Interpretation Comments UA Sq Epi (test code = UA Sq Occasional /LPF Epi) [facility] [id number] 19:24:00 Test Item Value Reference Range Interpretation Comments UA Bacteria (test code = UA Occasional /HPF Bacteria) [facility] [id number] 19:24:00 Test Item Value Reference Range Interpretation Comments UA Mucus (test code = None Seen (08/24/14 UA Mucus) 1:24 PM) [facility] [id number] 19:24:00 Test Item Value Reference Range Interpretation Comments UA WBC (test code = UA WBC) 0-2 /HPF [facility] [id number] 19:24:00 Test Item Value Reference Range Interpretation Comments UA RBC (test code = 0-2 /HPF See_Comment [Automa gaye message] The UA RBC) system which ge nerated this result tra nsmitted reference range : <=2. The reference range was not used to interpr et this result as satish l/abnormal. [facility] [id number] 19:24:00 Test Item Value Reference Range Interpretation Comments UA Leuk Est (test Moderate *ABN*(08/24/14 code = UA Leuk Est) 1:24 PM) [facility] [id number] 19:24:00 Test Item Value Reference Range Interpretation Comments UA Nitrite (test code Negative (08/24/14 1:24 = UA Nitrite) PM) [facility] [id number] 19:24:00 Test Item Value Reference Range Interpretation Comments UA Urobilinogen (test code = UA 0.2 0.1-1.0 Urobilinogen) [facility] [id number] 19:24:00 Test Item Value Reference Range Interpretation Comments UA Ketones (test code Negative *NA*(08/24/14 = UA Ketones) 1:24 PM) [facility] [id number] 19:24:00 Test Item Value Reference Range Interpretation Comments UA Blood (test code = Negative (08/24/14 1:24 UA Blood) PM) [facility] [id number] 19:24:00 Test Item Value Reference Range Interpretation Comments UA Bili (test code = Negative *NA*(08/24/14 UA Bili) 1:24 PM) [facility] [id number] 19:24:00 Test Item Value Reference Range Interpretation Comments UA Color (test code = Yellow *NA*(08/24/14 UA Color) 1:24 PM) [facility] [id number] 19:24:00 Test Item Value Reference Range Interpretation Comments UA Glucose (test code Negative (08/24/14 1:24 = UA Glucose) PM) [facility] [id number] 19:24:00 Test Item Value Reference Range Interpretation Comments UA Protein (test code Negative (08/24/14 1:24 = UA Protein) PM) [facility] [id number] 19:24:00 Test Item Value Reference Range Interpretation Comments UA pH (test code = UA pH) 6.0 1 5.0-8.0 [facility] [id number] 19:24:00 Test Item Value Reference Range Interpretation Comments UA Spec Grav (test code *NA*(08/24/14 1:24 PM) = UA Spec Grav) [facility] [id number] 19:24:00 Test Item Value Reference Range Interpretation Comments UA Turbidity (test code = Clear (08/24/14 1:24 UA Turbidity) PM) [facility]2015-01-12 19:24:00 Test Item Value Reference Range Interpretation Comments Lipase Lvl (test code = Lipase Lvl) 104 73-393 [facility]2015-01-12 19:24:00 Test Item Value Reference Range Interpretation Comments eGFR (test code = eGFR) 109 [facility]2015-01-12 19:24:00 Test Item Value Reference Range Interpretation Comments Bili Total (test code = Bili Total) 0.6 0.2-1.3 [facility]2015-01-12 19:24:00 Test Item Value Reference Range Interpretation Comments Alk Phos (test code = Alk Phos) 72 39-136 [facility]2015-01-12 19:24:00 Test Item Value Reference Range Interpretation Comments Calcium Lvl (test code = Calcium Lvl) 8.8 8.5-10.5 [facility]2015-01-12 19:24:00 Test Item Value Reference Range Interpretation Comments CO2 (test code = CO2) 28 24-32 [facility]2015-01-12 19:24:00 Test Item Value Reference Range Interpretation Comments Chloride Lvl (test code = Chloride Lvl) 107 95-109 [facility]2015-01-12 19:24:00 Test Item Value Reference Range Interpretation Comments Potassium Lvl (test code = Potassium 3.9 3.5-5.1 Lvl) [place] 358135-01-12 19:24:00 Test Item Value Reference Range Interpretation Comments Glucose Lvl (test code = Glucose Lvl) 90 70-99 [facility]2015-01-12 19:24:00 Test Item Value Reference Range Interpretation Comments Sodium Lvl (test code = Sodium Lvl) 138 135-145 [facility]2015-01-12 19:24:00 Test Item Value Reference Range Interpretation Comments BUN (test code = BUN) 7 7-22 [facility]2015-01-12 19:24:00 Test Item Value Reference Range Interpretation Comments Creatinine Lvl (test code = Creatinine 0.7 0.5-1.4 Lvl) [facility]2015-01-12 19:24:00 Test Item Value Reference Range Interpretation Comments ALT (test code = ALT) 23 See_Comment [Auto mated message] The system which ge nerated this result transmit gaye reference range : <=65. The reference range was not used to interpr et this result as satish l/abnormal. [facility]2015-01-12 19:24:00 Test Item Value Reference Range Interpretation Comments AST (test code = AST) 12 See_Comment [Auto mated message] The system which ge nerated this result transmit gaye reference range : <=37. The reference range was not used to interpr et this result as satish l/abnormal. [place] 358135-01-12 19:24:00 Test Item Value Reference Range Interpretation Comments Albumin Lvl (test code = Albumin Lvl) 3.8 3.5-5.0 [facility]2015-01-12 19:24:00 Test Item Value Reference Range Interpretation Comments Total Protein (test code = Total 8.0 6.4-8.4 Protein) [place] 358135-01-12 19:24:00 Test Item Value Reference Range Interpretation Comments A/G Ratio (test code = A/G Ratio) 0.9 0.7-1.6 [place] 358135-01-12 19:24:00 Test Item Value Reference Range Interpretation Comments AGAP (test code = AGAP) 6.9 10.0-20.0 [place] 358135-01-12 19:24:00 Test Item Value Reference Range Interpretation Comments B/C Ratio (test code = B/C Ratio) 10 6-25 [facility] [id number] 19:24:00 Test Item Value Reference Range Interpretation Comments Globulin (test code = Globulin) 4.2 2.0-4.0 [id number] 19:24:00 Test Item Value Reference Range Interpretation Comments S Preg (test code = S Negative *NA*(08/24/14 Preg) 1:24 PM) [facility] HospitalMucjtpaVANFQRPZCR8636-34-85 19:24:00 Test Item Value Reference Range Interpretation Comments WBC (test code = WBC) 11.3 3.7-10.4 [facility] HospitalYnauuxsFQATDPKLUJ0588-60-37 19:24:00 Test Item Value Reference Range Interpretation Comments RBC (test code = RBC) 4.75 4.20-5.40 [facility] HospitalGfkxtqdAFAUDHSEQV0382-68-21 19:24:00 Test Item Value Reference Range Interpretation Comments Platelet (test code = Platelet) 402 133-450 [facility] HospitalMemukdfUUPBBDWKCB2502-66-84 19:24:00 Test Item Value Reference Range Interpretation Comments MCV (test code = MCV) 89.9 80.0-98.0 [facility] HospitalZrzwrewVZBYYIITEW0988-72-19 19:24:00 Test Item Value Reference Range Interpretation Comments Hct (test code = Hct) 42.7 36.0-48.0 [facility] Hospit[id number] 19:24:00 Test Item Value Reference Range Interpretation Comments Hgb (test code = Hgb) 14.5 12.0-16.0 [facility] H[id number] 19:24:00 Test Item Value Reference Range Interpretation Comments RDW (test code = RDW) 13.5 11.5-14.5 [facility] Hospit[id number] 19:24:00 Test Item Value Reference Range Interpretation Comments MCHC (test code = MCHC) 34.0 32.0-36.0 [facility] HospitalAainydxIOUGRNSSGS3666-70-09 19:24:00 Test Item Value Reference Range Interpretation Comments MCH (test code = MCH) 30.6 pg 27.0-31.0 [facility] HospitalQllfrauGFNQDYQVGQ9275-08-50 19:24:00 Test Item Value Reference Range Interpretation Comments MPV (test code = MPV) 8.1 7.4-10.4 [facility] Hospit[id number] 19:24:00 Test Item Value Reference Range Interpretation Comments Stomatocyte (test code = Stomatocyte) [facility] HospitalPwwbiexVCFTEVEPKJ6135-13-39 19:24:00 Test Item Value Reference Range Interpretation Comments Basophils # (test code 0.1 See_Comment [Aut omated message] The = Basophils #) system which generated this result tra nsmitted reference range : <=0.2. The reference r ozzy was not used to int erpret this result as normal/abnormal . [facility] Hos[id number] 19:24:00 Test Item Value Reference Range Interpretation Comments Eosinophils # (test code 0.2 See_Comment [A utomated message] The = Eosinophils #) system whic h generated this result tra nsmitted reference range : <=0.5. The reference r ozzy was not used to int erpret this result as normal/abnormal . [facility] Hospit[id number] 19:24:00 Test Item Value Reference Range Interpretation Comments Hypochrom (test code = 1+ (08/24/14 1:24 PM) Hypochrom) [facility] Hospit[id number] 19:24:00 Test Item Value Reference Range Interpretation Comments Lymphocytes # (test code = Lymphocytes 2.8 1.0-5.5 #) [facility] HospitalQxorxprEYUPHOEFLO7560-50-52 19:24:00 Test Item Value Reference Range Interpretation Comments Segs-Bands # (test code = Segs-Bands #) 8.1 1.5-8.1 [facility] Hospit[id number] 19:24:00 Test Item Value Reference Range Interpretation Comments Monocytes # (test code 0.2 See_Comment [Aut omated message] The = Monocytes #) system which generated this result tra nsmitted reference range : <=0.8. The reference r ozzy was not used to int erpret this result as normal/abnormal . [facility] HospitalKwuuaelIHXGAJDAQI1505-66-86 19:24:00 Test Item Value Reference Range Interpretation Comments Lymphocytes (test code = Lymphocytes) 24.5 20.0-40.0 [facility] HospitalGwgjbwtJCLECJXJWO2667-80-93 19:24:00 Test Item Value Reference Range Interpretation Comments Segs (test code = Segs) 71.8 45.0-75.0 [facility] HospitalSrzfvklQCIACZCVAO5459-45-62 19:24:00 Test Item Value Reference Range Interpretation Comments Basophils (test code = 0.6 See_Comment [Aut omated message] The Basophils) system which ge nerated this result tra nsmitted reference range : <=1.0. The reference r ozzy was not used to int erpret this result as normal/abnormal . [facility] HospitalEbvdildHUEDBMLZIV5426-98-11 19:24:00 Test Item Value Reference Range Interpretation Comments Monocytes (test code = Monocytes) 1.5 2.0-12.0 [facility] HospitalQyegadgALKATZVTQA3026-99-00 19:24:00 Test Item Value Reference Range Interpretation Comments Eosinophils (test code = 1.6 See_Comment [A utomated message] The Eosinophils) system which ge nerated this result tra nsmitted reference range : <=4.0. The reference r ozzy was not used to int erpret this result as normal/abnormal . [facility] Ho[id number] 19:24:00 Test Item Value Reference Range Interpretation Comments Plt Morph (test code = Normal (08/24/14 1:24 Plt Morph) PM) [facility] [id number] 19:24:00 Test Item Value Reference Range Interpretation Comments UA Sq Epi (test code = UA Sq Occasional /LPF Epi) [facility] [id number] 19:24:00 Test Item Value Reference Range Interpretation Comments UA Bacteria (test code = UA Occasional /HPF Bacteria) [facility] [id number] 19:24:00 Test Item Value Reference Range Interpretation Comments UA Mucus (test code = None Seen (08/24/14 UA Mucus) 1:24 PM) [facility] [id number] 19:24:00 Test Item Value Reference Range Interpretation Comments UA WBC (test code = UA WBC) 0-2 /HPF [facility] [id number] 19:24:00 Test Item Value Reference Range Interpretation Comments UA RBC (test code = 0-2 /HPF See_Comment [Automa gaye message] The UA RBC) system which ge nerated this result tra nsmitted reference range : <=2. The reference range was not used to interpr et this result as satish l/abnormal. [facility] [id number] 19:24:00 Test Item Value Reference Range Interpretation Comments UA Leuk Est (test Moderate *ABN*(08/24/14 code = UA Leuk Est) 1:24 PM) [facility] [id number] 19:24:00 Test Item Value Reference Range Interpretation Comments UA Nitrite (test code Negative (08/24/14 1:24 = UA Nitrite) PM) [facility] [id number] 19:24:00 Test Item Value Reference Range Interpretation Comments UA Urobilinogen (test code = UA 0.2 0.1-1.0 Urobilinogen) [facility] [id number] 19:24:00 Test Item Value Reference Range Interpretation Comments UA Ketones (test code Negative *NA*(08/24/14 = UA Ketones) 1:24 PM) [facility] [id number] 19:24:00 Test Item Value Reference Range Interpretation Comments UA Blood (test code = Negative (08/24/14 1:24 UA Blood) PM) [facility] [id number] 19:24:00 Test Item Value Reference Range Interpretation Comments UA Bili (test code = Negative *NA*(08/24/14 UA Bili) 1:24 PM) [facility] [id number] 19:24:00 Test Item Value Reference Range Interpretation Comments UA Color (test code = Yellow *NA*(08/24/14 UA Color) 1:24 PM) [facility] [id number] 19:24:00 Test Item Value Reference Range Interpretation Comments UA Glucose (test code Negative (08/24/14 1:24 = UA Glucose) PM) [facility] [id number] 19:24:00 Test Item Value Reference Range Interpretation Comments UA Protein (test code Negative (08/24/14 1:24 = UA Protein) PM) [facility] AND [id number] 19:24:00 Test Item Value Reference Range Interpretation Comments UA pH (test code = UA pH) 6.0 1 5.0-8.0 [facility] [id number] 19:24:00 Test Item Value Reference Range Interpretation Comments UA Spec Grav (test code *NA*(08/24/14 1:24 PM) = UA Spec Grav) [facility] [id number] 19:24:00 Test Item Value Reference Range Interpretation Comments UA Turbidity (test code = Clear (08/24/14 1:24 UA Turbidity) PM) [facility]2015-01-12 19:24:00 Test Item Value Reference Range Interpretation Comments Lipase Lvl (test code = Lipase Lvl) 104 73-393 [facility]2015-01-12 19:24:00 Test Item Value Reference Range Interpretation Comments eGFR (test code = eGFR) 109 [facility]2015-01-12 19:24:00 Test Item Value Reference Range Interpretation Comments Bili Total (test code = Bili Total) 0.6 0.2-1.3 [facility]2015-01-12 19:24:00 Test Item Value Reference Range Interpretation Comments Alk Phos (test code = Alk Phos) 72 39-136 [facility]2015-01-12 19:24:00 Test Item Value Reference Range Interpretation Comments Calcium Lvl (test code = Calcium Lvl) 8.8 8.5-10.5 [facility]2015-01-12 19:24:00 Test Item Value Reference Range Interpretation Comments CO2 (test code = CO2) 28 24-32 [facility]2015-01-12 19:24:00 Test Item Value Reference Range Interpretation Comments Chloride Lvl (test code = Chloride Lvl) 107 95-109 [facility]2015-01-12 19:24:00 Test Item Value Reference Range Interpretation Comments Potassium Lvl (test code = Potassium 3.9 3.5-5.1 Lvl) [facility]2015-01-12 19:24:00 Test Item Value Reference Range Interpretation Comments Glucose Lvl (test code = Glucose Lvl) 90 70-99 [facility]2015-01-12 19:24:00 Test Item Value Reference Range Interpretation Comments Sodium Lvl (test code = Sodium Lvl) 138 135-145 [facility] [facility] 19:[facility]:00 Test Item Value Reference Range Interpretation Comments BUN (test code = BUN) 7 7-22 [facility]2015-01-12 19:24:00 Test Item Value Reference Range Interpretation Comments Creatinine Lvl (test code = Creatinine 0.7 0.5-1.4 Lvl) [facility]2015-01-12 19:24:00 Test Item Value Reference Range Interpretation Comments ALT (test code = ALT) 23 See_Comment [Auto mated message] The system which ge nerated this result transmit gaye reference range : <=65. The reference range was not used to interpr et this result as satish l/abnormal. [facility]2015-01-12 19:24:00 Test Item Value Reference Range Interpretation Comments AST (test code = AST) 12 See_Comment [Auto mated message] The system which ge nerated this result transmit gaye reference range : <=37. The reference range was not used to interpr et this result as satish l/abnormal. [facility]2015-01-12 19:24:00 Test Item Value Reference Range Interpretation Comments Albumin Lvl (test code = Albumin Lvl) 3.8 3.5-5.0 [facility]2015-01-12 19:24:00 Test Item Value Reference Range Interpretation Comments Total Protein (test code = Total 8.0 6.4-8.4 Protein) [facility]2015-01-12 19:24:00 Test Item Value Reference Range Interpretation Comments A/G Ratio (test code = A/G Ratio) 0.9 0.7-1.6 [facility]2015-01-12 19:24:00 Test Item Value Reference Range Interpretation Comments AGAP (test code = AGAP) 6.9 10.0-20.0 [facility]2015-01-12 19:24:00 Test Item Value Reference Range Interpretation Comments B/C Ratio (test code = B/C Ratio) 10 6-25 [facility]2015-01-12 19:24:00 Test Item Value Reference Range Interpretation Comments Globulin (test code = Globulin) 4.2 2.0-4.0 [place] [id number] 19:24:00 Test Item Value Reference Range Interpretation Comments S Preg (test code = S Negative *NA*(08/24/14 Preg) 1:24 PM) [facility] HospitalHcwkhubYSTVYDUDEE7814-03-19 19:24:00 Test Item Value Reference Range Interpretation Comments WBC (test code = WBC) 11.3 3.7-10.4 [facility] HospitalZexjwsrAEZRZKWOCV0178-44-07 19:24:00 Test Item Value Reference Range Interpretation Comments RBC (test code = RBC) 4.75 4.20-5.40 [facility] HospitalKltgchmPGAFUQKDGK3818-86-71 19:24:00 Test Item Value Reference Range Interpretation Comments Platelet (test code = Platelet) 402 133-450 [facility] HospitalVamhkpqOXKERHEAEY5967-18-10 19:24:00 Test Item Value Reference Range Interpretation Comments MCV (test code = MCV) 89.9 80.0-98.0 [facility] HospitalHlqbnprKYIGTBVKWF5604-69-27 19:24:00 Test Item Value Reference Range Interpretation Comments Hct (test code = Hct) 42.7 36.0-48.0 [facility] HospitalTpadxbmBJENAVICYB0689-81-17 19:24:00 Test Item Value Reference Range Interpretation Comments Hgb (test code = Hgb) 14.5 12.0-16.0 [facility] HospitalVcnvonyJBQAQBAEVW4632-08-81 19:24:00 Test Item Value Reference Range Interpretation Comments RDW (test code = RDW) 13.5 11.5-14.5 [facility] HospitalAbimgqkDXCFSYCWTW6973-48-13 19:24:00 Test Item Value Reference Range Interpretation Comments MCHC (test code = MCHC) 34.0 32.0-36.0 [facility] HospitalNdkspjqGYPXZOAXAF0629-39-52 19:24:00 Test Item Value Reference Range Interpretation Comments MCH (test code = MCH) 30.6 pg 27.0-31.0 [facility] HospitalBkisixlGDXRAEYLRE8719-62-95 19:24:00 Test Item Value Reference Range Interpretation Comments MPV (test code = MPV) 8.1 7.4-10.4 [facility] HospitalYkncrjrJWRQLGZATC7746-57-12 19:24:00 Test Item Value Reference Range Interpretation Comments Stomatocyte (test code = Stomatocyte) [facility] HospitalIqdoxlySAPSMSAVDA7953-93-20 19:24:00 Test Item Value Reference Range Interpretation Comments Basophils # (test code 0.1 See_Comment [Aut omated message] The = Basophils #) system which generated this result tra nsmitted reference range : <=0.2. The reference r ozzy was not used to int erpret this result as normal/abnormal . [facility] HospitalQxgkjqsKDBGBWSYKM3464-08-27 19:24:00 Test Item Value Reference Range Interpretation Comments Eosinophils # (test code 0.2 See_Comment [A utomated message] The = Eosinophils #) system whic h generated this result tra nsmitted reference range : <=0.5. The reference r ozzy was not used to int erpret this result as normal/abnormal . [facility] HospitalLbjeyoiSEXRSVKTKY9959-48-49 19:24:00 Test Item Value Reference Range Interpretation Comments Hypochrom (test code = 1+ (08/24/14 1:24 PM) Hypochrom) [facility] HospitalVgupalaQVQAVGLPQB7115-90-40 19:24:00 Test Item Value Reference Range Interpretation Comments Lymphocytes # (test code = Lymphocytes 2.8 1.0-5.5 #) [facility] HospitalQeahtoiUXVOHLNDDZ0468-67-12 19:24:00 Test Item Value Reference Range Interpretation Comments Segs-Bands # (test code = Segs-Bands #) 8.1 1.5-8.1 [facility] HospitalExtgwuaICFQSBUGQM5938-33-37 19:24:00 Test Item Value Reference Range Interpretation Comments Monocytes # (test code 0.2 See_Comment [Aut omated message] The = Monocytes #) system which generated this result tra nsmitted reference range : <=0.8. The reference r ozzy was not used to int erpret this result as normal/abnormal . [facility] HospitalLnrpffgOTUGFBSEDY3056-75-14 19:24:00 Test Item Value Reference Range Interpretation Comments Lymphocytes (test code = Lymphocytes) 24.5 20.0-40.0 [facility] HospitalBxkihdtGGFCZDZXLD9723-56-19 19:24:00 Test Item Value Reference Range Interpretation Comments Segs (test code = Segs) 71.8 45.0-75.0 [facility] HospitalOnaymudHYFRDTQSLW9151-02-48 19:24:00 Test Item Value Reference Range Interpretation Comments Basophils (test code = 0.6 See_Comment [Aut omated message] The Basophils) system which ge nerated this result tra nsmitted reference range : <=1.0. The reference r ozzy was not used to int erpret this result as normal/abnormal . [facility] HospitalZznenasXZAURKHEXW7574-58-41 19:24:00 Test Item Value Reference Range Interpretation Comments Monocytes (test code = Monocytes) 1.5 2.0-12.0 [facility] HospitalReiqzxbWTEAYKWEEA0591-29-33 19:24:00 Test Item Value Reference Range Interpretation Comments Eosinophils (test code = 1.6 See_Comment [A utomated message] The Eosinophils) system which ge nerated this result tra nsmitted reference range : <=4.0. The reference r ozzy was not used to int erpret this result as normal/abnormal . [facility] HospitalVgkefqkLFSMGTBHUO2592-86-78 19:24:00 Test Item Value Reference Range Interpretation Comments Plt Morph (test code = Normal (08/24/14 1:24 Plt Morph) PM) [facility] AND [id number] 19:24:00 Test Item Value Reference Range Interpretation Comments UA Sq Epi (test code = UA Sq Occasional /LPF Epi) [facility] AND [id number] 19:24:00 Test Item Value Reference Range Interpretation Comments UA Bacteria (test code = UA Occasional /HPF Bacteria) [facility] AND [id number] 19:24:00 Test Item Value Reference Range Interpretation Comments UA Mucus (test code = None Seen (08/24/14 UA Mucus) 1:24 PM) [facility] AND [id number] 19:24:00 Test Item Value Reference Range Interpretation Comments UA WBC (test code = UA WBC) 0-2 /HPF [facility] AND [id number] 19:24:00 Test Item Value Reference Range Interpretation Comments UA RBC (test code = 0-2 /HPF See_Comment [Automa gaye message] The UA RBC) system which ge nerated this result tra nsmitted reference range : <=2. The reference range was not used to interpr et this result as satish l/abnormal. [facility] AND [id number] 19:24:00 Test Item Value Reference Range Interpretation Comments UA Leuk Est (test Moderate *ABN*(08/24/14 code = UA Leuk Est) 1:24 PM) [facility] AND [id number] 19:24:00 Test Item Value Reference Range Interpretation Comments UA Nitrite (test code Negative (08/24/14 1:24 = UA Nitrite) PM) [facility] AND [id number] 19:24:00 Test Item Value Reference Range Interpretation Comments UA Urobilinogen (test code = UA 0.2 0.1-1.0 Urobilinogen) [facility] [id number] 19:24:00 Test Item Value Reference Range Interpretation Comments UA Ketones (test code Negative *NA*(08/24/14 = UA Ketones) 1:24 PM) [facility] [id number] 19:24:00 Test Item Value Reference Range Interpretation Comments UA Blood (test code = Negative (08/24/14 1:24 UA Blood) PM) [facility] AND [id number] 19:24:00 Test Item Value Reference Range Interpretation Comments UA Bili (test code = Negative *NA*(08/24/14 UA Bili) 1:24 PM) [facility] AND [id number] 19:24:00 Test Item Value Reference Range Interpretation Comments UA Color (test code = Yellow *NA*(08/24/14 UA Color) 1:24 PM) [facility] AND [id number] 19:24:00 Test Item Value Reference Range Interpretation Comments UA Glucose (test code Negative (08/24/14 1:24 = UA Glucose) PM) [facility] AND [id number] 19:24:00 Test Item Value Reference Range Interpretation Comments UA Protein (test code Negative (08/24/14 1:24 = UA Protein) PM) [facility] AND [id number] 19:24:00 Test Item Value Reference Range Interpretation Comments UA pH (test code = UA pH) 6.0 1 5.0-8.0 [facility] AND [id number] 19:24:00 Test Item Value Reference Range Interpretation Comments UA Spec Grav (test code *NA*(08/24/14 1:24 PM) = UA Spec Grav) [facility] AND [id number] 19:24:00 Test Item Value Reference Range Interpretation Comments UA Turbidity (test code = Clear (08/24/14 1:24 UA Turbidity) PM) [facility] [id number] 19:24:00 Test Item Value Reference Range Interpretation Comments Lipase Lvl (test code = Lipase Lvl) 104 73-393 [facility] [id number] 19:24:00 Test Item Value Reference Range Interpretation Comments eGFR (test code = eGFR) 109 [facility]2015-01-12 19:24:00 Test Item Value Reference Range Interpretation Comments Bili Total (test code = Bili Total) 0.6 0.2-1.3 [place] [id number] 19:24:00 Test Item Value Reference Range Interpretation Comments Alk Phos (test code = Alk Phos) 72 39-136 [facility]2015-01-12 19:24:00 Test Item Value Reference Range Interpretation Comments Calcium Lvl (test code = Calcium Lvl) 8.8 8.5-10.5 [facility]2015-01-12 19:24:00 Test Item Value Reference Range Interpretation Comments CO2 (test code = CO2) 28 24-32 [facility]2015-01-12 19:24:00 Test Item Value Reference Range Interpretation Comments Chloride Lvl (test code = Chloride Lvl) 107 95-109 [facility]2015-01-12 19:24:00 Test Item Value Reference Range Interpretation Comments Potassium Lvl (test code = Potassium 3.9 3.5-5.1 Lvl) [facility]2015-01-12 19:24:00 Test Item Value Reference Range Interpretation Comments Glucose Lvl (test code = Glucose Lvl) 90 70-99 [facility]2015-01-12 19:24:00 Test Item Value Reference Range Interpretation Comments Sodium Lvl (test code = Sodium Lvl) 138 135-145 [facility]2015-01-12 19:24:00 Test Item Value Reference Range Interpretation Comments BUN (test code = BUN) 7 7-22 [facility]2015-01-12 19:24:00 Test Item Value Reference Range Interpretation Comments Creatinine Lvl (test code = Creatinine 0.7 0.5-1.4 Lvl) [facility]2015-01-12 19:24:00 Test Item Value Reference Range Interpretation Comments ALT (test code = ALT) 23 See_Comment [Auto mated message] The system which ge nerated this result transmit gaye reference range : <=65. The reference range was not used to interpr et this result as satish l/abnormal. [facility]2015-01-12 19:24:00 Test Item Value Reference Range Interpretation Comments AST (test code = AST) 12 See_Comment [Auto mated message] The system which ge nerated this result transmit gaye reference range : <=37. The reference range was not used to interpr et this result as satish l/abnormal. [facility]2015-01-12 19:24:00 Test Item Value Reference Range Interpretation Comments Albumin Lvl (test code = Albumin Lvl) 3.8 3.5-5.0 [facility]2015-01-12 19:24:00 Test Item Value Reference Range Interpretation Comments Total Protein (test code = Total 8.0 6.4-8.4 Protein) [facility]2015-01-12 19:24:00 Test Item Value Reference Range Interpretation Comments A/G Ratio (test code = A/G Ratio) 0.9 0.7-1.6 [facility]2015-01-12 19:24:00 Test Item Value Reference Range Interpretation Comments AGAP (test code = AGAP) 6.9 10.0-20.0 [facility]2015-01-12 19:24:00 Test Item Value Reference Range Interpretation Comments B/C Ratio (test code = B/C Ratio) 10 6-25 [facility]2015-01-12 19:24:00 Test Item Value Reference Range Interpretation Comments Globulin (test code = Globulin) 4.2 2.0-4.0 [facility]xvuxllCEWHVONEKDKSO0411-29-15 19:24:00 Test Item Value Reference Range Interpretation Comments S Preg (test code = S Negative *NA*(08/24/14 Preg) 1:24 PM) [facility] HospitalEsleodcAIEMKGIYNT6164-13-35 19:24:00 Test Item Value Reference Range Interpretation Comments WBC (test code = WBC) 11.3 3.7-10.4 [facility] HospitalRmurvktVWVKCBRMCG2704-75-53 19:24:00 Test Item Value Reference Range Interpretation Comments RBC (test code = RBC) 4.75 4.20-5.40 [facility] HospitalJteluntPTQKKASBEK5009-75-89 19:24:00 Test Item Value Reference Range Interpretation Comments Platelet (test code = Platelet) 402 133-450 [facility] HospitalWsfljppLECXVHTZBM2758-63-77 19:24:00 Test Item Value Reference Range Interpretation Comments MCV (test code = MCV) 89.9 80.0-98.0 [facility] HospitalKtuoqaoORXUSYKOHG6794-81-48 19:24:00 Test Item Value Reference Range Interpretation Comments Hct (test code = Hct) 42.7 36.0-48.0 [facility] HospitalTxxglddWFMKNPZNLJ1474-40-81 19:24:00 Test Item Value Reference Range Interpretation Comments Hgb (test code = Hgb) 14.5 12.0-16.0 [facility] HospitalVbptahbJHXDOWFMMN4124-78-94 19:24:00 Test Item Value Reference Range Interpretation Comments RDW (test code = RDW) 13.5 11.5-14.5 [facility] HospitalEmwddfuETCXFXGSZW5481-65-47 19:24:00 Test Item Value Reference Range Interpretation Comments MCHC (test code = MCHC) 34.0 32.0-36.0 [facility] HospitalAlhjkduAEDJINQHOH1423-80-56 19:24:00 Test Item Value Reference Range Interpretation Comments MCH (test code = MCH) 30.6 pg 27.0-31.0 [facility] HospitalTuuwnyhBEGFYSXPYH5880-84-49 19:24:00 Test Item Value Reference Range Interpretation Comments MPV (test code = MPV) 8.1 7.4-10.4 [facility] HospitalHvqbbcvAWHFBTHUJM0372-59-05 19:24:00 Test Item Value Reference Range Interpretation Comments Stomatocyte (test code = Stomatocyte) [facility] HospitalBfipbxpIURJSDLQMK3546-67-09 19:24:00 Test Item Value Reference Range Interpretation Comments Basophils # (test code 0.1 See_Comment [Aut omated message] The = Basophils #) system which generated this result tra nsmitted reference range : <=0.2. The reference r ozzy was not used to int erpret this result as normal/abnormal . [facility] HospitalPmoaxdeYGJPWAMCPA5079-65-61 19:24:00 Test Item Value Reference Range Interpretation Comments Eosinophils # (test code 0.2 See_Comment [A utomated message] The = Eosinophils #) system whic h generated this result tra nsmitted reference range : <=0.5. The reference r ozzy was not used to int erpret this result as normal/abnormal . [facility] HospitalNxixrtbPABATCLURP7269-67-27 19:24:00 Test Item Value Reference Range Interpretation Comments Hypochrom (test code = 1+ (08/24/14 1:24 PM) Hypochrom) [facility] HospitalBclaavcSQIFKLGRLS1711-46-72 19:24:00 Test Item Value Reference Range Interpretation Comments Lymphocytes # (test code = Lymphocytes 2.8 1.0-5.5 #) [facility] HospitalIgjlrbsMRNJJMDKXW5465-20-22 19:24:00 Test Item Value Reference Range Interpretation Comments Segs-Bands # (test code = Segs-Bands #) 8.1 1.5-8.1 [facility] HospitalXdygvifXSLCKAKFHU9201-42-06 19:24:00 Test Item Value Reference Range Interpretation Comments Monocytes # (test code 0.2 See_Comment [Aut omated message] The = Monocytes #) system which generated this result tra nsmitted reference range : <=0.8. The reference r ozzy was not used to int erpret this result as normal/abnormal . [facility] HospitalTxcfvpqVHLHRUPWDT1466-98-97 19:24:00 Test Item Value Reference Range Interpretation Comments Lymphocytes (test code = Lymphocytes) 24.5 20.0-40.0 [facility] HospitalOrklznsGKZOAMLYVS0919-61-57 19:24:00 Test Item Value Reference Range Interpretation Comments Segs (test code = Segs) 71.8 45.0-75.0 [facility] HospitalJllynzdEBCHWGPOLZ4242-86-67 19:24:00 Test Item Value Reference Range Interpretation Comments Basophils (test code = 0.6 See_Comment [Aut omated message] The Basophils) system which ge nerated this result tra nsmitted reference range : <=1.0. The reference r ozzy was not used to int erpret this result as normal/abnormal . [facility] HospitalKmbpcmsTBSFQWJSWG7153-13-77 19:24:00 Test Item Value Reference Range Interpretation Comments Monocytes (test code = Monocytes) 1.5 2.0-12.0 [facility] HospitalSpkfbdaMDROMAFLOK6000-40-20 19:24:00 Test Item Value Reference Range Interpretation Comments Eosinophils (test code = 1.6 See_Comment [A utomated message] The Eosinophils) system which ge nerated this result tra nsmitted reference range : <=4.0. The reference r ozzy was not used to int erpret this result as normal/abnormal . [facility] HospitalHsvswepTEKWAIIZTU8224-87-63 19:24:00 Test Item Value Reference Range Interpretation Comments Plt Morph (test code = Normal (08/24/14 1:24 Plt Morph) PM) [facility] AND [id number] 19:24:00 Test Item Value Reference Range Interpretation Comments UA Sq Epi (test code = UA Sq Occasional /LPF Epi) [facility] AND [id number] 19:24:00 Test Item Value Reference Range Interpretation Comments UA Bacteria (test code = UA Occasional /HPF Bacteria) [facility] AND [id number] 19:24:00 Test Item Value Reference Range Interpretation Comments UA Mucus (test code = None Seen (08/24/14 UA Mucus) 1:24 PM) [facility] AND [id number] 19:24:00 Test Item Value Reference Range Interpretation Comments UA WBC (test code = UA WBC) 0-2 /HPF [facility] AND [id number] 19:24:00 Test Item Value Reference Range Interpretation Comments UA RBC (test code = 0-2 /HPF See_Comment [Automa gaye message] The UA RBC) system which ge nerated this result tra nsmitted reference range : <=2. The reference range was not used to interpr et this result as satish l/abnormal. [facility] AND [id number] 19:24:00 Test Item Value Reference Range Interpretation Comments UA Leuk Est (test Moderate *ABN*(08/24/14 code = UA Leuk Est) 1:24 PM) [facility] AND [id number] 19:24:00 Test Item Value Reference Range Interpretation Comments UA Nitrite (test code Negative (08/24/14 1:24 = UA Nitrite) PM) [facility] AND [id number] 19:24:00 Test Item Value Reference Range Interpretation Comments UA Urobilinogen (test code = UA 0.2 0.1-1.0 Urobilinogen) [facility] AND [id number] 19:24:00 Test Item Value Reference Range Interpretation Comments UA Ketones (test code Negative *NA*(08/24/14 = UA Ketones) 1:24 PM) [facility] AND [id number] 19:24:00 Test Item Value Reference Range Interpretation Comments UA Blood (test code = Negative (08/24/14 1:24 UA Blood) PM) [facility] AND [id number] 19:24:00 Test Item Value Reference Range Interpretation Comments UA Bili (test code = Negative *NA*(08/24/14 UA Bili) 1:24 PM) [facility] AND [id number] 19:24:00 Test Item Value Reference Range Interpretation Comments UA Color (test code = Yellow *NA*(08/24/14 UA Color) 1:24 PM) [facility] AND [id number] 19:24:00 Test Item Value Reference Range Interpretation Comments UA Glucose (test code Negative (08/24/14 1:24 = UA Glucose) PM) [facility] AND [id number] 19:24:00 Test Item Value Reference Range Interpretation Comments UA Protein (test code Negative (08/24/14 1:24 = UA Protein) PM) [facility] AND [id number] 19:24:00 Test Item Value Reference Range Interpretation Comments UA pH (test code = UA pH) 6.0 1 5.0-8.0 [facility] AND [id number] 19:24:00 Test Item Value Reference Range Interpretation Comments UA Spec Grav (test code *NA*(08/24/14 1:24 PM) = UA Spec Grav) [facility] AND [id number] 19:24:00 Test Item Value Reference Range Interpretation Comments UA Turbidity (test code = Clear (08/24/14 1:24 UA Turbidity) PM) [facility] [id number] 19:24:00 Test Item Value Reference Range Interpretation Comments Lipase Lvl (test code = Lipase Lvl) 104 73-393 [facility] [id number] 19:24:00 Test Item Value Reference Range Interpretation Comments eGFR (test code = eGFR) 109 [facility]2015-01-12 19:24:00 Test Item Value Reference Range Interpretation Comments Bili Total (test code = Bili Total) 0.6 0.2-1.3 [facility]2015-01-12 19:24:00 Test Item Value Reference Range Interpretation Comments Alk Phos (test code = Alk Phos) 72 39-136 [facility]2015-01-12 19:24:00 Test Item Value Reference Range Interpretation Comments Calcium Lvl (test code = Calcium Lvl) 8.8 8.5-10.5 [facility]2015-01-12 19:24:00 Test Item Value Reference Range Interpretation Comments CO2 (test code = CO2) 28 24-32 [facility]2015-01-12 19:24:00 Test Item Value Reference Range Interpretation Comments Chloride Lvl (test code = Chloride Lvl) 107 95-109 [facility]2015-01-12 19:24:00 Test Item Value Reference Range Interpretation Comments Potassium Lvl (test code = Potassium 3.9 3.5-5.1 Lvl) [facility]2015-01-12 19:24:00 Test Item Value Reference Range Interpretation Comments Glucose Lvl (test code = Glucose Lvl) 90 70-99 [facility]2015-01-12 19:24:00 Test Item Value Reference Range Interpretation Comments Sodium Lvl (test code = Sodium Lvl) 138 135-145 [facility]2015-01-12 19:24:00 Test Item Value Reference Range Interpretation Comments BUN (test code = BUN) 7 7-22 [facility]2015-01-12 19:24:00 Test Item Value Reference Range Interpretation Comments Creatinine Lvl (test code = Creatinine 0.7 0.5-1.4 Lvl) [facility]2015-01-12 19:24:00 Test Item Value Reference Range Interpretation Comments ALT (test code = ALT) 23 See_Comment [Auto mated message] The system which ge nerated this result transmit gaye reference range : <=65. The reference range was not used to interpr et this result as satish l/abnormal. [facility]2015-01-12 19:24:00 Test Item Value Reference Range Interpretation Comments AST (test code = AST) 12 See_Comment [Auto mated message] The system which ge nerated this result transmit gaye reference range : <=37. The reference range was not used to interpr et this result as satish l/abnormal. [place] [id number] 19:24:00 Test Item Value Reference Range Interpretation Comments Albumin Lvl (test code = Albumin Lvl) 3.8 3.5-5.0 [facility]2015-01-12 19:24:00 Test Item Value Reference Range Interpretation Comments Total Protein (test code = Total 8.0 6.4-8.4 Protein) [facility]2015-01-12 19:24:00 Test Item Value Reference Range Interpretation Comments A/G Ratio (test code = A/G Ratio) 0.9 0.7-1.6 [facility]2015-01-12 19:24:00 Test Item Value Reference Range Interpretation Comments AGAP (test code = AGAP) 6.9 10.0-20.0 [facility]2015-01-12 19:24:00 Test Item Value Reference Range Interpretation Comments B/C Ratio (test code = B/C Ratio) 10 6-25 [facility]2015-01-12 19:24:00 Test Item Value Reference Range Interpretation Comments Globulin (test code = Globulin) 4.2 2.0-4.0 [id number] 19:24:00 Test Item Value Reference Range Interpretation Comments S Preg (test code = S Negative *NA*(08/24/14 Preg) 1:24 PM) [facility] HospitalTrmhmspSGUTCWLDLF2990-73-57 19:24:00 Test Item Value Reference Range Interpretation Comments WBC (test code = WBC) 11.3 3.7-10.4 [facility] HospitalPgrjmpxNSDBHHFHIF4380-23-25 19:24:00 Test Item Value Reference Range Interpretation Comments RBC (test code = RBC) 4.75 4.20-5.40 [facility] HospitalZflqwjbDMWQBPLLTV2153-67-86 19:24:00 Test Item Value Reference Range Interpretation Comments Platelet (test code = Platelet) 402 133-450 [facility] HospitalBbufetkTQYQNUUKJZ6411-07-48 19:24:00 Test Item Value Reference Range Interpretation Comments MCV (test code = MCV) 89.9 80.0-98.0 [facility] HospitalKkzmgdaDJHNNRAGGR7615-13-28 19:24:00 Test Item Value Reference Range Interpretation Comments Hct (test code = Hct) 42.7 36.0-48.0 [facility] HospitalCgpygjlYUWXWDZATU8236-94-93 19:24:00 Test Item Value Reference Range Interpretation Comments Hgb (test code = Hgb) 14.5 12.0-16.0 [facility] HospitalWoamqhpRETLBGAPLI6932-94-95 19:24:00 Test Item Value Reference Range Interpretation Comments RDW (test code = RDW) 13.5 11.5-14.5 [facility] HospitalPzzluwsMHODZVPQAT1280-06-57 19:24:00 Test Item Value Reference Range Interpretation Comments MCHC (test code = MCHC) 34.0 32.0-36.0 [facility] HospitalDtakcmwLJQHMMNSLO0090-08-68 19:24:00 Test Item Value Reference Range Interpretation Comments MCH (test code = MCH) 30.6 pg 27.0-31.0 [facility] HospitalEebahehCMDDQJECWO2209-98-37 19:24:00 Test Item Value Reference Range Interpretation Comments MPV (test code = MPV) 8.1 7.4-10.4 [facility] HospitalXtfcyswXBUILCFWPA6182-08-40 19:24:00 Test Item Value Reference Range Interpretation Comments Stomatocyte (test code = Stomatocyte) [facility] HospitalGmyklsbHFKLOLYWER5938-42-22 19:24:00 Test Item Value Reference Range Interpretation Comments Basophils # (test code 0.1 See_Comment [Aut omated message] The = Basophils #) system which generated this result tra nsmitted reference range : <=0.2. The reference r ozzy was not used to int erpret this result as normal/abnormal . [facility] HospitalWdixxyhSYAZAZZZYI7670-37-81 19:24:00 Test Item Value Reference Range Interpretation Comments Eosinophils # (test code 0.2 See_Comment [A utomated message] The = Eosinophils #) system whic h generated this result tra nsmitted reference range : <=0.5. The reference r ozzy was not used to int erpret this result as normal/abnormal . [facility] HospitalTtilsmfZCAWEJOAEZ6327-16-55 19:24:00 Test Item Value Reference Range Interpretation Comments Hypochrom (test code = 1+ (08/24/14 1:24 PM) Hypochrom) [facility] HospitalSmncdjdSXDIJLFKFD3760-63-09 19:24:00 Test Item Value Reference Range Interpretation Comments Lymphocytes # (test code = Lymphocytes 2.8 1.0-5.5 #) [facility] HospitalTtheizePLEGHAZHFB8353-94-28 19:24:00 Test Item Value Reference Range Interpretation Comments Segs-Bands # (test code = Segs-Bands #) 8.1 1.5-8.1 [facility] HospitalAaxvcpoHFJWBKOYGZ4898-96-92 19:24:00 Test Item Value Reference Range Interpretation Comments Monocytes # (test code 0.2 See_Comment [Aut omated message] The = Monocytes #) system which generated this result tra nsmitted reference range : <=0.8. The reference r ozzy was not used to int erpret this result as normal/abnormal . [facility] HospitalKfwrolaZDDSKLETOC0230-35-01 19:24:00 Test Item Value Reference Range Interpretation Comments Lymphocytes (test code = Lymphocytes) 24.5 20.0-40.0 [facility] HospitalWovmczbZHPIYEOKPT1712-49-92 19:24:00 Test Item Value Reference Range Interpretation Comments Segs (test code = Segs) 71.8 45.0-75.0 [facility] HospitalLqdlxklDATCNWGKKK1701-59-40 19:24:00 Test Item Value Reference Range Interpretation Comments Basophils (test code = 0.6 See_Comment [Aut omated message] The Basophils) system which ge nerated this result tra nsmitted reference range : <=1.0. The reference r ozzy was not used to int erpret this result as normal/abnormal . [facility] HospitalLjglpkwLFQWXQWOEA7157-92-42 19:24:00 Test Item Value Reference Range Interpretation Comments Monocytes (test code = Monocytes) 1.5 2.0-12.0 [facility] HospitalQebwkhwDSCLPFCUAQ8437-49-97 19:24:00 Test Item Value Reference Range Interpretation Comments Eosinophils (test code = 1.6 See_Comment [A utomated message] The Eosinophils) system which ge nerated this result tra nsmitted reference range : <=4.0. The reference r ozzy was not used to int erpret this result as normal/abnormal . [facility] HospitalSqsgognPJRCULDHWQ9938-00-44 19:24:00 Test Item Value Reference Range Interpretation Comments Plt Morph (test code = Normal (08/24/14 1:24 Plt Morph) PM) [facility] AND [id number] 19:24:00 Test Item Value Reference Range Interpretation Comments UA Sq Epi (test code = UA Sq Occasional /LPF Epi) [facility] AND [id number] 19:24:00 Test Item Value Reference Range Interpretation Comments UA Bacteria (test code = UA Occasional /HPF Bacteria) [facility] AND [id number] 19:24:00 Test Item Value Reference Range Interpretation Comments UA Mucus (test code = None Seen (08/24/14 UA Mucus) 1:24 PM) [facility] AND [id number] 19:24:00 Test Item Value Reference Range Interpretation Comments UA WBC (test code = UA WBC) 0-2 /HPF [facility] AND [id number] 19:24:00 Test Item Value Reference Range Interpretation Comments UA RBC (test code = 0-2 /HPF See_Comment [Automa gaye message] The UA RBC) system which ge nerated this result tra nsmitted reference range : <=2. The reference range was not used to interpr et this result as astish l/abnormal. [facility] AND [id number] 19:24:00 Test Item Value Reference Range Interpretation Comments UA Leuk Est (test Moderate *ABN*(08/24/14 code = UA Leuk Est) 1:24 PM) [facility] AND [id number] 19:24:00 Test Item Value Reference Range Interpretation Comments UA Nitrite (test code Negative (08/24/14 1:24 = UA Nitrite) PM) [facility] AND [id number] 19:24:00 Test Item Value Reference Range Interpretation Comments UA Urobilinogen (test code = UA 0.2 0.1-1.0 Urobilinogen) [facility] AND [id number] 19:24:00 Test Item Value Reference Range Interpretation Comments UA Ketones (test code Negative *NA*(08/24/14 = UA Ketones) 1:24 PM) [facility] AND [id number] 19:24:00 Test Item Value Reference Range Interpretation Comments UA Blood (test code = Negative (08/24/14 1:24 UA Blood) PM) [facility] AND [id number] 19:24:00 Test Item Value Reference Range Interpretation Comments UA Bili (test code = Negative *NA*(08/24/14 UA Bili) 1:24 PM) [facility] AND [id number] 19:24:00 Test Item Value Reference Range Interpretation Comments UA Color (test code = Yellow *NA*(08/24/14 UA Color) 1:24 PM) [facility] AND [id number] 19:24:00 Test Item Value Reference Range Interpretation Comments UA Glucose (test code Negative (08/24/14 1:24 = UA Glucose) PM) [facility] AND [id number] 19:24:00 Test Item Value Reference Range Interpretation Comments UA Protein (test code Negative (08/24/14 1:24 = UA Protein) PM) [facility] AND [id number] 19:24:00 Test Item Value Reference Range Interpretation Comments UA pH (test code = UA pH) 6.0 1 5.0-8.0 [facility] AND [id number] 19:24:00 Test Item Value Reference Range Interpretation Comments UA Spec Grav (test code *NA*(08/24/14 1:24 PM) = UA Spec Grav) [facility] AND [id number] 19:24:00 Test Item Value Reference Range Interpretation Comments UA Turbidity (test code = Clear (08/24/14 1:24 UA Turbidity) PM) [facility]2015-01-12 19:24:00 Test Item Value Reference Range Interpretation Comments Lipase Lvl (test code = Lipase Lvl) 104 73-393 [facility]2015-01-12 19:24:00 Test Item Value Reference Range Interpretation Comments eGFR (test code = eGFR) 109 [facility]2015-01-12 19:24:00 Test Item Value Reference Range Interpretation Comments Bili Total (test code = Bili Total) 0.6 0.2-1.3 [facility]2015-01-12 19:24:00 Test Item Value Reference Range Interpretation Comments Alk Phos (test code = Alk Phos) 72 39-136 [facility]2015-01-12 19:24:00 Test Item Value Reference Range Interpretation Comments Calcium Lvl (test code = Calcium Lvl) 8.8 8.5-10.5 [facility]2015-01-12 19:24:00 Test Item Value Reference Range Interpretation Comments CO2 (test code = CO2) 28 24-32 [facility]2015-01-12 19:24:00 Test Item Value Reference Range Interpretation Comments Chloride Lvl (test code = Chloride Lvl) 107 95-109 [facility]2015-01-12 19:24:00 Test Item Value Reference Range Interpretation Comments Potassium Lvl (test code = Potassium 3.9 3.5-5.1 Lvl) [facility]2015-01-12 19:24:00 Test Item Value Reference Range Interpretation Comments Glucose Lvl (test code = Glucose Lvl) 90 70-99 [facility]2015-01-12 19:24:00 Test Item Value Reference Range Interpretation Comments Sodium Lvl (test code = Sodium Lvl) 138 135-145 [facility]2015-01-12 19:24:00 Test Item Value Reference Range Interpretation Comments BUN (test code = BUN) 7 7-22 [facility]2015-01-12 19:24:00 Test Item Value Reference Range Interpretation Comments Creatinine Lvl (test code = Creatinine 0.7 0.5-1.4 Lvl) [facility]2015-01-12 19:24:00 Test Item Value Reference Range Interpretation Comments ALT (test code = ALT) 23 See_Comment [Auto mated message] The system which ge nerated this result transmit gaye reference range : <=65. The reference range was not used to interpr et this result as satish l/abnormal. [facility]2015-01-12 19:24:00 Test Item Value Reference Range Interpretation Comments AST (test code = AST) 12 See_Comment [Auto mated message] The system which ge nerated this result transmit gaye reference range : <=37. The reference range was not used to interpr et this result as satish l/abnormal. [facility]2015-01-12 19:24:00 Test Item Value Reference Range Interpretation Comments Albumin Lvl (test code = Albumin Lvl) 3.8 3.5-5.0 [facility]2015-01-12 19:24:00 Test Item Value Reference Range Interpretation Comments Total Protein (test code = Total 8.0 6.4-8.4 Protein) [facility]2015-01-12 19:24:00 Test Item Value Reference Range Interpretation Comments A/G Ratio (test code = A/G Ratio) 0.9 0.7-1.6 [facility]2015-01-12 19:24:00 Test Item Value Reference Range Interpretation Comments AGAP (test code = AGAP) 6.9 10.0-20.0 [place] [id number] 19:24:00 Test Item Value Reference Range Interpretation Comments B/C Ratio (test code = B/C Ratio) 10 6-25 [facility] [id number] 19:24:00 Test Item Value Reference Range Interpretation Comments Globulin (test code = Globulin) 4.2 2.0-4.0 [facility]zbvmouIEODDPEKEVYYW6202-31-40 19:24:00 Test Item Value Reference Range Interpretation Comments S Preg (test code = S Negative *NA*(08/24/14 Preg) 1:24 PM) [facility] HospitalVrxfakbAQESIEFXLC7885-52-58 19:24:00 Test Item Value Reference Range Interpretation Comments WBC (test code = WBC) 11.3 3.7-10.4 [facility] HospitalYefhkayORUUNYKQZP6458-02-41 19:24:00 Test Item Value Reference Range Interpretation Comments RBC (test code = RBC) 4.75 4.20-5.40 [facility] HospitalKhzwdybWKOPTOAPGO0343-55-01 19:24:00 Test Item Value Reference Range Interpretation Comments Platelet (test code = Platelet) 402 133-450 [facility] HospitalJubfjstYUQRUYWNGW0771-66-99 19:24:00 Test Item Value Reference Range Interpretation Comments MCV (test code = MCV) 89.9 80.0-98.0 [facility] HospitalCachvnnAKMVKCNRIX7882-29-58 19:24:00 Test Item Value Reference Range Interpretation Comments Hct (test code = Hct) 42.7 36.0-48.0 [facility] HospitalAozgaxqLSUNINJJQE0570-45-19 19:24:00 Test Item Value Reference Range Interpretation Comments Hgb (test code = Hgb) 14.5 12.0-16.0 [facility] HospitalGqfixzdJJDDCSCCYL6914-42-30 19:24:00 Test Item Value Reference Range Interpretation Comments RDW (test code = RDW) 13.5 11.5-14.5 [facility] HospitalDsaaprcUIEQLQGXPQ4487-19-34 19:24:00 Test Item Value Reference Range Interpretation Comments MCHC (test code = MCHC) 34.0 32.0-36.0 [facility] HospitalGcolltePTISXRGRUB8123-84-24 19:24:00 Test Item Value Reference Range Interpretation Comments MCH (test code = MCH) 30.6 pg 27.0-31.0 [facility] HospitalYmryxgzUDCYRNDFNK7131-95-97 19:24:00 Test Item Value Reference Range Interpretation Comments MPV (test code = MPV) 8.1 7.4-10.4 [facility] HospitalAkzepijQMANEVZHEF0972-27-25 19:24:00 Test Item Value Reference Range Interpretation Comments Stomatocyte (test code = Stomatocyte) [facility] HospitalLmpovkoWUHSTQZSUD1568-34-75 19:24:00 Test Item Value Reference Range Interpretation Comments Basophils # (test code 0.1 See_Comment [Aut omated message] The = Basophils #) system which generated this result tra nsmitted reference range : <=0.2. The reference r ozzy was not used to int erpret this result as normal/abnormal . [facility] HospitalYibokryWULOBIXIHZ3807-49-24 19:24:00 Test Item Value Reference Range Interpretation Comments Eosinophils # (test code 0.2 See_Comment [A utomated message] The = Eosinophils #) system whic h generated this result tra nsmitted reference range : <=0.5. The reference r ozzy was not used to int erpret this result as normal/abnormal . [facility] HospitalFamfunkZHCUXCMHJD4613-89-12 19:24:00 Test Item Value Reference Range Interpretation Comments Hypochrom (test code = 1+ (08/24/14 1:24 PM) Hypochrom) [facility] HospitalHqhzjocJIMLWWSTDB7620-94-53 19:24:00 Test Item Value Reference Range Interpretation Comments Lymphocytes # (test code = Lymphocytes 2.8 1.0-5.5 #) [facility] HospitalTfywyghZGLXKVVWJZ3568-54-91 19:24:00 Test Item Value Reference Range Interpretation Comments Segs-Bands # (test code = Segs-Bands #) 8.1 1.5-8.1 [facility] HospitalKxlbanzJMADNRRNHX6542-02-45 19:24:00 Test Item Value Reference Range Interpretation Comments Monocytes # (test code 0.2 See_Comment [Aut omated message] The = Monocytes #) system which generated this result tra nsmitted reference range : <=0.8. The reference r ozzy was not used to int erpret this result as normal/abnormal . [facility] HospitalQzbkmfaZWLMNYKWQD2362-71-65 19:24:00 Test Item Value Reference Range Interpretation Comments Lymphocytes (test code = Lymphocytes) 24.5 20.0-40.0 [facility] HospitalFiiybynWLSWSINNEL3573-76-41 19:24:00 Test Item Value Reference Range Interpretation Comments Segs (test code = Segs) 71.8 45.0-75.0 [facility] HospitalRaskhbzHVXZFJJAKH3849-43-90 19:24:00 Test Item Value Reference Range Interpretation Comments Basophils (test code = 0.6 See_Comment [Aut omated message] The Basophils) system which ge nerated this result tra nsmitted reference range : <=1.0. The reference r ozzy was not used to int erpret this result as normal/abnormal . [facility] HospitalWreqdhbICMZWDUXKN7588-14-09 19:24:00 Test Item Value Reference Range Interpretation Comments Monocytes (test code = Monocytes) 1.5 2.0-12.0 [facility] HospitalIggoucmJYUEACWAZK7882-81-44 19:24:00 Test Item Value Reference Range Interpretation Comments Eosinophils (test code = 1.6 See_Comment [A utomated message] The Eosinophils) system which ge nerated this result tra nsmitted reference range : <=4.0. The reference r ozzy was not used to int erpret this result as normal/abnormal . [facility] HospitalDslixcmYIROXPGWBL7065-81-51 19:24:00 Test Item Value Reference Range Interpretation Comments Plt Morph (test code = Normal (08/24/14 1:24 Plt Morph) PM) [facility] AND [id number] 19:24:00 Test Item Value Reference Range Interpretation Comments UA Sq Epi (test code = UA Sq Occasional /LPF Epi) [facility] AND [id number] 19:24:00 Test Item Value Reference Range Interpretation Comments UA Bacteria (test code = UA Occasional /HPF Bacteria) [facility] AND [id number] 19:24:00 Test Item Value Reference Range Interpretation Comments UA Mucus (test code = None Seen (08/24/14 UA Mucus) 1:24 PM) [facility] AND [id number] 19:24:00 Test Item Value Reference Range Interpretation Comments UA WBC (test code = UA WBC) 0-2 /HPF [facility] AND [id number] 19:24:00 Test Item Value Reference Range Interpretation Comments UA RBC (test code = 0-2 /HPF See_Comment [Automa gaye message] The UA RBC) system which ge nerated this result tra nsmitted reference range : <=2. The reference range was not used to interpr et this result as satish l/abnormal. [facility] AND [id number] 19:24:00 Test Item Value Reference Range Interpretation Comments UA Leuk Est (test Moderate *ABN*(08/24/14 code = UA Leuk Est) 1:24 PM) [facility] [id number] 19:24:00 Test Item Value Reference Range Interpretation Comments UA Nitrite (test code Negative (08/24/14 1:24 = UA Nitrite) PM) [facility] [id number] 19:24:00 Test Item Value Reference Range Interpretation Comments UA Urobilinogen (test code = UA 0.2 0.1-1.0 Urobilinogen) [facility] AND [id number] 19:24:00 Test Item Value Reference Range Interpretation Comments UA Ketones (test code Negative *NA*(08/24/14 = UA Ketones) 1:24 PM) [facility] AND [id number] 19:24:00 Test Item Value Reference Range Interpretation Comments UA Blood (test code = Negative (08/24/14 1:24 UA Blood) PM) [facility] AND [id number] 19:24:00 Test Item Value Reference Range Interpretation Comments UA Bili (test code = Negative *NA*(08/24/14 UA Bili) 1:24 PM) [facility] AND [id number] 19:24:00 Test Item Value Reference Range Interpretation Comments UA Color (test code = Yellow *NA*(08/24/14 UA Color) 1:24 PM) [facility] AND [id number] 19:24:00 Test Item Value Reference Range Interpretation Comments UA Glucose (test code Negative (08/24/14 1:24 = UA Glucose) PM) [facility] AND [id number] 19:24:00 Test Item Value Reference Range Interpretation Comments UA Protein (test code Negative (08/24/14 1:24 = UA Protein) PM) [facility] AND [id number] 19:24:00 Test Item Value Reference Range Interpretation Comments UA pH (test code = UA pH) 6.0 1 5.0-8.0 [facility] AND [id number] 19:24:00 Test Item Value Reference Range Interpretation Comments UA Spec Grav (test code *NA*(08/24/14 1:24 PM) = UA Spec Grav) [facility] [id number] 19:24:00 Test Item Value Reference Range Interpretation Comments UA Turbidity (test code = Clear (08/24/14 1:24 UA Turbidity) PM) [facility]2015-01-12 19:24:00 Test Item Value Reference Range Interpretation Comments Lipase Lvl (test code = Lipase Lvl) 104 73-393 [facility]2015-01-12 19:24:00 Test Item Value Reference Range Interpretation Comments eGFR (test code = eGFR) 109 [facility]2015-01-12 19:24:00 Test Item Value Reference Range Interpretation Comments Bili Total (test code = Bili Total) 0.6 0.2-1.3 [facility]2015-01-12 19:24:00 Test Item Value Reference Range Interpretation Comments Alk Phos (test code = Alk Phos) 72 39-136 [facility]2015-01-12 19:24:00 Test Item Value Reference Range Interpretation Comments Calcium Lvl (test code = Calcium Lvl) 8.8 8.5-10.5 [facility]2015-01-12 19:24:00 Test Item Value Reference Range Interpretation Comments CO2 (test code = CO2) 28 24-32 [facility]2015-01-12 19:24:00 Test Item Value Reference Range Interpretation Comments Chloride Lvl (test code = Chloride Lvl) 107 95-109 [facility]2015-01-12 19:24:00 Test Item Value Reference Range Interpretation Comments Potassium Lvl (test code = Potassium 3.9 3.5-5.1 Lvl) [facility]2015-01-12 19:24:00 Test Item Value Reference Range Interpretation Comments Glucose Lvl (test code = Glucose Lvl) 90 70-99 [facility]2015-01-12 19:24:00 Test Item Value Reference Range Interpretation Comments Sodium Lvl (test code = Sodium Lvl) 138 135-145 [facility]2015-01-12 19:24:00 Test Item Value Reference Range Interpretation Comments BUN (test code = BUN) 7 7-22 [facility]2015-01-12 19:24:00 Test Item Value Reference Range Interpretation Comments Creatinine Lvl (test code = Creatinine 0.7 0.5-1.4 Lvl) [facility]2015-01-12 19:24:00 Test Item Value Reference Range Interpretation Comments ALT (test code = ALT) 23 See_Comment [Auto mated message] The system which ge nerated this result transmit gaye reference range : <=65. The reference range was not used to interpr et this result as satish l/abnormal. [facility]2015-01-12 19:24:00 Test Item Value Reference Range Interpretation Comments AST (test code = AST) 12 See_Comment [Auto mated message] The system which ge nerated this result transmit gaye reference range : <=37. The reference range was not used to interpr et this result as satish l/abnormal. [facility]2015-01-12 19:24:00 Test Item Value Reference Range Interpretation Comments Albumin Lvl (test code = Albumin Lvl) 3.8 3.5-5.0 [facility]2015-01-12 19:24:00 Test Item Value Reference Range Interpretation Comments Total Protein (test code = Total 8.0 6.4-8.4 Protein) [facility]2015-01-12 19:24:00 Test Item Value Reference Range Interpretation Comments A/G Ratio (test code = A/G Ratio) 0.9 0.7-1.6 [facility]2015-01-12 19:24:00 Test Item Value Reference Range Interpretation Comments AGAP (test code = AGAP) 6.9 10.0-20.0 [facility]2015-01-12 19:24:00 Test Item Value Reference Range Interpretation Comments B/C Ratio (test code = B/C Ratio) 10 6-25 [facility]2015-01-12 19:24:00 Test Item Value Reference Range Interpretation Comments Globulin (test code = Globulin) 4.2 2.0-4.0 [id number] 19:24:00 Test Item Value Reference Range Interpretation Comments S Preg (test code = S Negative *NA*(08/24/14 Preg) 1:24 PM) [facility] HospitalTopucrrUOXBVHWQVU4395-04-08 19:24:00 Test Item Value Reference Range Interpretation Comments WBC (test code = WBC) 11.3 3.7-10.4 [facility] HospitalKejilqwXLDMGTPJJC4194-87-91 19:24:00 Test Item Value Reference Range Interpretation Comments RBC (test code = RBC) 4.75 4.20-5.40 [facility] HospitalNrshfpkUEIJPTCPHH7094-40-69 19:24:00 Test Item Value Reference Range Interpretation Comments Platelet (test code = Platelet) 402 133-450 [facility] HospitalRjydbgfTNLMGKLMGA0083-15-03 19:24:00 Test Item Value Reference Range Interpretation Comments MCV (test code = MCV) 89.9 80.0-98.0 [facility] HospitalXigdfsaJQXPRBZBMO3050-56-04 19:24:00 Test Item Value Reference Range Interpretation Comments Hct (test code = Hct) 42.7 36.0-48.0 [facility] HospitalKjkkimtJGNIFHYEYP5191-51-28 19:24:00 Test Item Value Reference Range Interpretation Comments Hgb (test code = Hgb) 14.5 12.0-16.0 [facility] HospitalYfqwexzWMPZZSTUFD8066-85-38 19:24:00 Test Item Value Reference Range Interpretation Comments RDW (test code = RDW) 13.5 11.5-14.5 [facility] Hospit[id number] 19:24:00 Test Item Value Reference Range Interpretation Comments MCHC (test code = MCHC) 34.0 32.0-36.0 [facility] HospitalSfvsbgoGCKUYOHFSL9029-30-36 19:24:00 Test Item Value Reference Range Interpretation Comments MCH (test code = MCH) 30.6 pg 27.0-31.0 [facility] HospitalElwmuemQYQRMMJPBC9904-13-33 19:24:00 Test Item Value Reference Range Interpretation Comments MPV (test code = MPV) 8.1 7.4-10.4 [facility] Hospit[id number] 19:24:00 Test Item Value Reference Range Interpretation Comments Stomatocyte (test code = Stomatocyte) [facility] HospitalZsbciljQJUNWSNHPB9554-86-71 19:24:00 Test Item Value Reference Range Interpretation Comments Basophils # (test code 0.1 See_Comment [Aut omated message] The = Basophils #) system which generated this result tra nsmitted reference range : <=0.2. The reference r ozzy was not used to int erpret this result as normal/abnormal . [facility] HospitalKkoocqyZPTIGSOPVD5261-08-90 19:24:00 Test Item Value Reference Range Interpretation Comments Eosinophils # (test code 0.2 See_Comment [A utomated message] The = Eosinophils #) system whic h generated this result tra nsmitted reference range : <=0.5. The reference r ozzy was not used to int erpret this result as normal/abnormal . [facility] Hospit[id number] 19:24:00 Test Item Value Reference Range Interpretation Comments Hypochrom (test code = 1+ (08/24/14 1:24 PM) Hypochrom) [facility] HospitalLwiiqgkTEQLVMDHDE8510-26-89 19:24:00 Test Item Value Reference Range Interpretation Comments Lymphocytes # (test code = Lymphocytes 2.8 1.0-5.5 #) [facility] HospitalBcmzcjeNTGYSXTKPH2801-78-47 19:24:00 Test Item Value Reference Range Interpretation Comments Segs-Bands # (test code = Segs-Bands #) 8.1 1.5-8.1 [facility] HospitalMvhutmiZBBUGGIFON4511-29-14 19:24:00 Test Item Value Reference Range Interpretation Comments Monocytes # (test code 0.2 See_Comment [Aut omated message] The = Monocytes #) system which generated this result tra nsmitted reference range : <=0.8. The reference r ozzy was not used to int erpret this result as normal/abnormal . [facility] HospitalFzwyiihPLVBWZLKGZ1952-94-76 19:24:00 Test Item Value Reference Range Interpretation Comments Lymphocytes (test code = Lymphocytes) 24.5 20.0-40.0 [facility] HospitalBntvqwrAMQZYWBHHM5498-45-39 19:24:00 Test Item Value Reference Range Interpretation Comments Segs (test code = Segs) 71.8 45.0-75.0 [facility] HospitalSmepvluGWFZBQRPDN5866-16-01 19:24:00 Test Item Value Reference Range Interpretation Comments Basophils (test code = 0.6 See_Comment [Aut omated message] The Basophils) system which ge nerated this result tra nsmitted reference range : <=1.0. The reference r ozzy was not used to int erpret this result as normal/abnormal . [facility] Hospit[id number] 19:24:00 Test Item Value Reference Range Interpretation Comments Monocytes (test code = Monocytes) 1.5 2.0-12.0 [facility] HospitalEsyefbfEVXZHVPWXP3621-50-59 19:24:00 Test Item Value Reference Range Interpretation Comments Eosinophils (test code = 1.6 See_Comment [A utomated message] The Eosinophils) system which ge nerated this result tra nsmitted reference range : <=4.0. The reference r ozzy was not used to int erpret this result as normal/abnormal . [facility] HospitalZxxwyyqTEGULOMSRR4876-84-24 19:24:00 Test Item Value Reference Range Interpretation Comments Plt Morph (test code = Normal (08/24/14 1:24 Plt Morph) PM) [facility] AND [id number] 19:24:00 Test Item Value Reference Range Interpretation Comments UA Sq Epi (test code = UA Sq Occasional /LPF Epi) [facility] AND [id number] 19:24:00 Test Item Value Reference Range Interpretation Comments UA Bacteria (test code = UA Occasional /HPF Bacteria) [facility] AND [id number] 19:24:00 Test Item Value Reference Range Interpretation Comments UA Mucus (test code = None Seen (08/24/14 UA Mucus) 1:24 PM) [facility] AND [id number] 19:24:00 Test Item Value Reference Range Interpretation Comments UA WBC (test code = UA WBC) 0-2 /HPF [facility] AND [id number] 19:24:00 Test Item Value Reference Range Interpretation Comments UA RBC (test code = 0-2 /HPF See_Comment [Automa gaye message] The UA RBC) system which ge nerated this result tra nsmitted reference range : <=2. The reference range was not used to interpr et this result as satish l/abnormal. [facility] AND [id number] 19:24:00 Test Item Value Reference Range Interpretation Comments UA Leuk Est (test Moderate *ABN*(08/24/14 code = UA Leuk Est) 1:24 PM) [facility] AND [id number] 19:24:00 Test Item Value Reference Range Interpretation Comments UA Nitrite (test code Negative (08/24/14 1:24 = UA Nitrite) PM) [facility] AND [id number] 19:24:00 Test Item Value Reference Range Interpretation Comments UA Urobilinogen (test code = UA 0.2 0.1-1.0 Urobilinogen) [facility] [id number] 19:24:00 Test Item Value Reference Range Interpretation Comments UA Ketones (test code Negative *NA*(08/24/14 = UA Ketones) 1:24 PM) [facility] [id number] 19:24:00 Test Item Value Reference Range Interpretation Comments UA Blood (test code = Negative (08/24/14 1:24 UA Blood) PM) [facility] [id number] 19:24:00 Test Item Value Reference Range Interpretation Comments UA Bili (test code = Negative *NA*(08/24/14 UA Bili) 1:24 PM) [facility] [id number] 19:24:00 Test Item Value Reference Range Interpretation Comments UA Color (test code = Yellow *NA*(08/24/14 UA Color) 1:24 PM) [facility] [id number] 19:24:00 Test Item Value Reference Range Interpretation Comments UA Glucose (test code Negative (08/24/14 1:24 = UA Glucose) PM) [facility] [id number] 19:24:00 Test Item Value Reference Range Interpretation Comments UA Protein (test code Negative (08/24/14 1:24 = UA Protein) PM) [facility] AND [id number] 19:24:00 Test Item Value Reference Range Interpretation Comments UA pH (test code = UA pH) 6.0 1 5.0-8.0 [facility] [id number] 19:24:00 Test Item Value Reference Range Interpretation Comments UA Spec Grav (test code *NA*(08/24/14 1:24 PM) = UA Spec Grav) [facility] [id number] 19:24:00 Test Item Value Reference Range Interpretation Comments UA Turbidity (test code = Clear (08/24/14 1:24 UA Turbidity) PM) [facility] [id number] 19:24:00 Test Item Value Reference Range Interpretation Comments Lipase Lvl (test code = Lipase Lvl) 104 73-393 [facility]2015-01-12 19:24:00 Test Item Value Reference Range Interpretation Comments eGFR (test code = eGFR) 109 [facility]2015-01-12 19:24:00 Test Item Value Reference Range Interpretation Comments Bili Total (test code = Bili Total) 0.6 0.2-1.3 [facility]2015-01-12 19:24:00 Test Item Value Reference Range Interpretation Comments Alk Phos (test code = Alk Phos) 72 39-136 [facility]2015-01-12 19:24:00 Test Item Value Reference Range Interpretation Comments Calcium Lvl (test code = Calcium Lvl) 8.8 8.5-10.5 [facility]2015-01-12 19:24:00 Test Item Value Reference Range Interpretation Comments CO2 (test code = CO2) 28 24-32 [facility]2015-01-12 19:24:00 Test Item Value Reference Range Interpretation Comments Chloride Lvl (test code = Chloride Lvl) 107 95-109 [facility]2015-01-12 19:24:00 Test Item Value Reference Range Interpretation Comments Potassium Lvl (test code = Potassium 3.9 3.5-5.1 Lvl) [facility]2015-01-12 19:24:00 Test Item Value Reference Range Interpretation Comments Glucose Lvl (test code = Glucose Lvl) 90 70-99 [facility]2015-01-12 19:24:00 Test Item Value Reference Range Interpretation Comments Sodium Lvl (test code = Sodium Lvl) 138 135-145 [facility]2015-01-12 19:24:00 Test Item Value Reference Range Interpretation Comments BUN (test code = BUN) 7 7-22 [facility]2015-01-12 19:24:00 Test Item Value Reference Range Interpretation Comments Creatinine Lvl (test code = Creatinine 0.7 0.5-1.4 Lvl) [facility]2015-01-12 19:24:00 Test Item Value Reference Range Interpretation Comments ALT (test code = ALT) 23 See_Comment [Auto mated message] The system which ge nerated this result transmit gaye reference range : <=65. The reference range was not used to interpr et this result as satish l/abnormal. [facility]2015-01-12 19:24:00 Test Item Value Reference Range Interpretation Comments AST (test code = AST) 12 See_Comment [Auto mated message] The system which ge nerated this result transmit gaye reference range : <=37. The reference range was not used to interpr et this result as satish l/abnormal. [facility]2015-01-12 19:24:00 Test Item Value Reference Range Interpretation Comments Albumin Lvl (test code = Albumin Lvl) 3.8 3.5-5.0 [facility]2015-01-12 19:24:00 Test Item Value Reference Range Interpretation Comments Total Protein (test code = Total 8.0 6.4-8.4 Protein) [facility]2015-01-12 19:24:00 Test Item Value Reference Range Interpretation Comments A/G Ratio (test code = A/G Ratio) 0.9 0.7-1.6 [facility]2015-01-12 19:24:00 Test Item Value Reference Range Interpretation Comments AGAP (test code = AGAP) 6.9 10.0-20.0 [facility]2015-01-12 19:24:00 Test Item Value Reference Range Interpretation Comments B/C Ratio (test code = B/C Ratio) 10 6-25 [facility]2015-01-12 19:24:00 Test Item Value Reference Range Interpretation Comments Globulin (test code = Globulin) 4.2 2.0-4.0 [id number] 19:24:00 Test Item Value Reference Range Interpretation Comments S Preg (test code = S Negative *NA*(08/24/14 Preg) 1:24 PM) [facility] HospitalBspalocIQBTPEZMWR7954-36-98 19:24:00 Test Item Value Reference Range Interpretation Comments WBC (test code = WBC) 11.3 3.7-10.4 [facility] HospitalWvdomivCLKGXZQYLK0915-67-32 19:24:00 Test Item Value Reference Range Interpretation Comments RBC (test code = RBC) 4.75 4.20-5.40 [facility] HospitalYwvafhnFZZTBQZCYM0975-51-80 19:24:00 Test Item Value Reference Range Interpretation Comments Platelet (test code = Platelet) 402 133-450 [place] 716745-01-12 19:24:00 Test Item Value Reference Range Interpretation Comments MCV (test code = MCV) 89.9 80.0-98.0 [facility] HospitalEuofcirOEHYCNJMNE2486-33-24 19:24:00 Test Item Value Reference Range Interpretation Comments Hct (test code = Hct) 42.7 36.0-48.0 [facility] HospitalMgrkxaxSDJHZUOMTS7003-87-32 19:24:00 Test Item Value Reference Range Interpretation Comments Hgb (test code = Hgb) 14.5 12.0-16.0 [facility] HospitalLvdroulVMYDWWEEFY2130-84-11 19:24:00 Test Item Value Reference Range Interpretation Comments RDW (test code = RDW) 13.5 11.5-14.5 [facility] HospitalMkrjjlgCGJIWVWLAJ9316-15-18 19:24:00 Test Item Value Reference Range Interpretation Comments MCHC (test code = MCHC) 34.0 32.0-36.0 [facility] HospitalJentlmgYKRCQKXOAZ0317-36-70 19:24:00 Test Item Value Reference Range Interpretation Comments MCH (test code = MCH) 30.6 pg 27.0-31.0 [facility] HospitalJwgnhlbKDZVRCQMEI4571-78-32 19:24:00 Test Item Value Reference Range Interpretation Comments MPV (test code = MPV) 8.1 7.4-10.4 [facility] HospitalEkvelvtIHNIJCVBJM4781-50-93 19:24:00 Test Item Value Reference Range Interpretation Comments Stomatocyte (test code = Stomatocyte) [facility] HospitalNavqleiPHBBQXENJR3406-94-90 19:24:00 Test Item Value Reference Range Interpretation Comments Basophils # (test code 0.1 See_Comment [Aut omated message] The = Basophils #) system which generated this result tra nsmitted reference range : <=0.2. The reference r ozzy was not used to int erpret this result as normal/abnormal . [facility] HospitalAnjkskmCYSXTLUMCZ5295-11-20 19:24:00 Test Item Value Reference Range Interpretation Comments Eosinophils # (test code 0.2 See_Comment [A utomated message] The = Eosinophils #) system whic h generated this result tra nsmitted reference range : <=0.5. The reference r ozzy was not used to int erpret this result as normal/abnormal . [facility] HospitalWgesrymASADVPVHLE8734-99-40 19:24:00 Test Item Value Reference Range Interpretation Comments Hypochrom (test code = 1+ (08/24/14 1:24 PM) Hypochrom) [facility] HospitalNiwjimrIEAOAGJDKB9547-16-62 19:24:00 Test Item Value Reference Range Interpretation Comments Lymphocytes # (test code = Lymphocytes 2.8 1.0-5.5 #) [facility] HospitalQupetguQVVIJDOUSV7230-05-33 19:24:00 Test Item Value Reference Range Interpretation Comments Segs-Bands # (test code = Segs-Bands #) 8.1 1.5-8.1 [facility] HospitalCevwtleTEWDGXOIJI9658-92-18 19:24:00 Test Item Value Reference Range Interpretation Comments Monocytes # (test code 0.2 See_Comment [Aut omated message] The = Monocytes #) system which generated this result tra nsmitted reference range : <=0.8. The reference r ozzy was not used to int erpret this result as normal/abnormal . [facility] Hospit[id number] 19:24:00 Test Item Value Reference Range Interpretation Comments Lymphocytes (test code = Lymphocytes) 24.5 20.0-40.0 [facility] HospitalQzixcteWQLEDSLKNH1301-98-02 19:24:00 Test Item Value Reference Range Interpretation Comments Segs (test code = Segs) 71.8 45.0-75.0 [facility] HospitalWorjudyTIMFCOSFFN2796-15-95 19:24:00 Test Item Value Reference Range Interpretation Comments Basophils (test code = 0.6 See_Comment [Aut omated message] The Basophils) system which ge nerated this result tra nsmitted reference range : <=1.0. The reference r ozzy was not used to int erpret this result as normal/abnormal . [facility] HospitalEyympmhDOFHUFZRAQ5194-15-73 19:24:00 Test Item Value Reference Range Interpretation Comments Monocytes (test code = Monocytes) 1.5 2.0-12.0 [facility] HospitalDpmnnsoOASUZYLNRF7740-17-86 19:24:00 Test Item Value Reference Range Interpretation Comments Eosinophils (test code = 1.6 See_Comment [A utomated message] The Eosinophils) system which ge nerated this result tra nsmitted reference range : <=4.0. The reference r ozzy was not used to int erpret this result as normal/abnormal . [facility] HospitalOlciltnVJBUGEDQOJ8840-58-17 19:24:00 Test Item Value Reference Range Interpretation Comments Plt Morph (test code = Normal (08/24/14 1:24 Plt Morph) PM) [facility] AND [id number] 19:24:00 Test Item Value Reference Range Interpretation Comments UA Sq Epi (test code = UA Sq Occasional /LPF Epi) [facility] AND [id number] 19:24:00 Test Item Value Reference Range Interpretation Comments UA Bacteria (test code = UA Occasional /HPF Bacteria) [facility] AND [id number] 19:24:00 Test Item Value Reference Range Interpretation Comments UA Mucus (test code = None Seen (08/24/14 UA Mucus) 1:24 PM) [facility] AND [id number] 19:24:00 Test Item Value Reference Range Interpretation Comments UA WBC (test code = UA WBC) 0-2 /HPF [facility] AND [id number] 19:24:00 Test Item Value Reference Range Interpretation Comments UA RBC (test code = 0-2 /HPF See_Comment [Automa gaye message] The UA RBC) system which ge nerated this result tra nsmitted reference range : <=2. The reference range was not used to interpr et this result as satish l/abnormal. [facility] AND [id number] 19:24:00 Test Item Value Reference Range Interpretation Comments UA Leuk Est (test Moderate *ABN*(08/24/14 code = UA Leuk Est) 1:24 PM) [facility] AND [id number] 19:24:00 Test Item Value Reference Range Interpretation Comments UA Nitrite (test code Negative (08/24/14 1:24 = UA Nitrite) PM) [facility] AND [id number] 19:24:00 Test Item Value Reference Range Interpretation Comments UA Urobilinogen (test code = UA 0.2 0.1-1.0 Urobilinogen) [facility] AND [id number] 19:24:00 Test Item Value Reference Range Interpretation Comments UA Ketones (test code Negative *NA*(08/24/14 = UA Ketones) 1:24 PM) [facility] AND [id number] 19:24:00 Test Item Value Reference Range Interpretation Comments UA Blood (test code = Negative (08/24/14 1:24 UA Blood) PM) [facility] AND [id number] 19:24:00 Test Item Value Reference Range Interpretation Comments UA Bili (test code = Negative *NA*(08/24/14 UA Bili) 1:24 PM) [facility] AND [id number] 19:24:00 Test Item Value Reference Range Interpretation Comments UA Color (test code = Yellow *NA*(08/24/14 UA Color) 1:24 PM) [facility] AND [id number] 19:24:00 Test Item Value Reference Range Interpretation Comments UA Glucose (test code Negative (08/24/14 1:24 = UA Glucose) PM) [facility] AND [id number] 19:24:00 Test Item Value Reference Range Interpretation Comments UA Protein (test code Negative (08/24/14 1:24 = UA Protein) PM) [facility] AND [id number] 19:24:00 Test Item Value Reference Range Interpretation Comments UA pH (test code = UA pH) 6.0 1 5.0-8.0 [facility] AND [id number] 19:24:00 Test Item Value Reference Range Interpretation Comments UA Spec Grav (test code *NA*(08/24/14 1:24 PM) = UA Spec Grav) [facility] AND [id number] 19:24:00 Test Item Value Reference Range Interpretation Comments UA Turbidity (test code = Clear (08/24/14 1:24 UA Turbidity) PM) [facility]2015-01-12 19:24:00 Test Item Value Reference Range Interpretation Comments Lipase Lvl (test code = Lipase Lvl) 104 73-393 [facility]2015-01-12 19:24:00 Test Item Value Reference Range Interpretation Comments eGFR (test code = eGFR) 109 [facility]2015-01-12 19:24:00 Test Item Value Reference Range Interpretation Comments Bili Total (test code = Bili Total) 0.6 0.2-1.3 [facility]2015-01-12 19:24:00 Test Item Value Reference Range Interpretation Comments Alk Phos (test code = Alk Phos) 72 39-136 [facility]2015-01-12 19:24:00 Test Item Value Reference Range Interpretation Comments Calcium Lvl (test code = Calcium Lvl) 8.8 8.5-10.5 [facility]2015-01-12 19:24:00 Test Item Value Reference Range Interpretation Comments CO2 (test code = CO2) 28 24-32 [facility]2015-01-12 19:24:00 Test Item Value Reference Range Interpretation Comments Chloride Lvl (test code = Chloride Lvl) 107 95-109 [facility]2015-01-12 19:24:00 Test Item Value Reference Range Interpretation Comments Potassium Lvl (test code = Potassium 3.9 3.5-5.1 Lvl) [facility]2015-01-12 19:24:00 Test Item Value Reference Range Interpretation Comments Glucose Lvl (test code = Glucose Lvl) 90 70-99 [facility]2015-01-12 19:24:00 Test Item Value Reference Range Interpretation Comments Sodium Lvl (test code = Sodium Lvl) 138 135-145 [facility]2015-01-12 19:24:00 Test Item Value Reference Range Interpretation Comments BUN (test code = BUN) 7 7-22 [facility]2015-01-12 19:24:00 Test Item Value Reference Range Interpretation Comments Creatinine Lvl (test code = Creatinine 0.7 0.5-1.4 Lvl) [facility]2015-01-12 19:24:00 Test Item Value Reference Range Interpretation Comments ALT (test code = ALT) 23 See_Comment [Auto mated message] The system which ge nerated this result transmit gaye reference range : <=65. The reference range was not used to interpr et this result as satish l/abnormal. [facility]2015-01-12 19:24:00 Test Item Value Reference Range Interpretation Comments AST (test code = AST) 12 See_Comment [Auto mated message] The system which ge nerated this result transmit gaye reference range : <=37. The reference range was not used to interpr et this result as satish l/abnormal. [facility]2015-01-12 19:24:00 Test Item Value Reference Range Interpretation Comments Albumin Lvl (test code = Albumin Lvl) 3.8 3.5-5.0 [facility]2015-01-12 19:24:00 Test Item Value Reference Range Interpretation Comments Total Protein (test code = Total 8.0 6.4-8.4 Protein) [facility]2015-01-12 19:24:00 Test Item Value Reference Range Interpretation Comments A/G Ratio (test code = A/G Ratio) 0.9 0.7-1.6 [facility]2015-01-12 19:24:00 Test Item Value Reference Range Interpretation Comments AGAP (test code = AGAP) 6.9 10.0-20.0 [facility]2015-01-12 19:24:00 Test Item Value Reference Range Interpretation Comments B/C Ratio (test code = B/C Ratio) 10 6-25 [facility]2015-01-12 19:24:00 Test Item Value Reference Range Interpretation Comments Globulin (test code = Globulin) 4.2 2.0-4.0 [facility][id number] 19:24:00 Test Item Value Reference Range Interpretation Comments S Preg (test code = S Negative *NA*(08/24/14 Preg) 1:24 PM) [facility] HospitalTcraimgPEUFXBPLCR2897-93-73 19:24:00 Test Item Value Reference Range Interpretation Comments WBC (test code = WBC) 11.3 3.7-10.4 [facility] HospitalNznlpesXCYGOZAXYB9701-64-96 19:24:00 Test Item Value Reference Range Interpretation Comments RBC (test code = RBC) 4.75 4.20-5.40 [facility] HospitalTxyzoitESRCAXCSWL3722-54-16 19:24:00 Test Item Value Reference Range Interpretation Comments Platelet (test code = Platelet) 402 133-450 [facility] HospitalIptohylLFRYBXACJC1570-73-92 19:24:00 Test Item Value Reference Range Interpretation Comments MCV (test code = MCV) 89.9 80.0-98.0 [facility] HospitalUelblpkHSKGSPVAAM2854-13-02 19:24:00 Test Item Value Reference Range Interpretation Comments Hct (test code = Hct) 42.7 36.0-48.0 [facility] HospitalLbxuvvnOYZDTNTRKB2324-96-11 19:24:00 Test Item Value Reference Range Interpretation Comments Hgb (test code = Hgb) 14.5 12.0-16.0 [facility] HospitalDcwdlqgDDCNEGVJFL6436-39-92 19:24:00 Test Item Value Reference Range Interpretation Comments RDW (test code = RDW) 13.5 11.5-14.5 [facility] HospitalUauogckMDQUMGGBVP2262-15-65 19:24:00 Test Item Value Reference Range Interpretation Comments MCHC (test code = MCHC) 34.0 32.0-36.0 [facility] HospitalEabfjpqOZSZLWUCNN1896-42-38 19:24:00 Test Item Value Reference Range Interpretation Comments MCH (test code = MCH) 30.6 pg 27.0-31.0 [facility] HospitalGmdqxjoKSWFPGNCJX5558-89-55 19:24:00 Test Item Value Reference Range Interpretation Comments MPV (test code = MPV) 8.1 7.4-10.4 [facility] HospitalJwaknneUMZRJYYREY6809-37-15 19:24:00 Test Item Value Reference Range Interpretation Comments Stomatocyte (test code = Stomatocyte) [facility] HospitalMyvcbqgRHPAROQWMY6925-67-80 19:24:00 Test Item Value Reference Range Interpretation Comments Basophils # (test code 0.1 See_Comment [Aut omated message] The = Basophils #) system which generated this result tra nsmitted reference range : <=0.2. The reference r ozzy was not used to int erpret this result as normal/abnormal . [facility] HospitalKcicqcxTLGSWSXTWR0437-09-00 19:24:00 Test Item Value Reference Range Interpretation Comments Eosinophils # (test code 0.2 See_Comment [A utomated message] The = Eosinophils #) system whic h generated this result tra nsmitted reference range : <=0.5. The reference r ozzy was not used to int erpret this result as normal/abnormal . [facility] Hospit[id number] 19:24:00 Test Item Value Reference Range Interpretation Comments Hypochrom (test code = 1+ (08/24/14 1:24 PM) Hypochrom) [facility] Hospit[id number] 19:24:00 Test Item Value Reference Range Interpretation Comments Lymphocytes # (test code = Lymphocytes 2.8 1.0-5.5 #) [facility] HospitalZqmlvfnQGRKIDCFWW4632-98-18 19:24:00 Test Item Value Reference Range Interpretation Comments Segs-Bands # (test code = Segs-Bands #) 8.1 1.5-8.1 [facility] HospitalVldhicfVRMDRAMVUZ4628-40-72 19:24:00 Test Item Value Reference Range Interpretation Comments Monocytes # (test code 0.2 See_Comment [Aut omated message] The = Monocytes #) system which generated this result tra nsmitted reference range : <=0.8. The reference r ozzy was not used to int erpret this result as normal/abnormal . [facility] HospitalYwoovnlZJKDEERVOU6956-90-93 19:24:00 Test Item Value Reference Range Interpretation Comments Lymphocytes (test code = Lymphocytes) 24.5 20.0-40.0 [facility] HospitalH[id number] 19:24:00 Test Item Value Reference Range Interpretation Comments Segs (test code = Segs) 71.8 45.0-75.0 [facility] HospitalUcrupzaMFRYMQJDIV5856-15-79 19:24:00 Test Item Value Reference Range Interpretation Comments Basophils (test code = 0.6 See_Comment [Aut omated message] The Basophils) system which ge nerated this result tra nsmitted reference range : <=1.0. The reference r ozzy was not used to int erpret this result as normal/abnormal . [facility] HospitalVunbsnrRIWRAVSDHB5211-32-36 19:24:00 Test Item Value Reference Range Interpretation Comments Monocytes (test code = Monocytes) 1.5 2.0-12.0 [facility] Hospit[id number] 19:24:00 Test Item Value Reference Range Interpretation Comments Eosinophils (test code = 1.6 See_Comment [A utomated message] The Eosinophils) system which ge nerated this result tra nsmitted reference range : <=4.0. The reference r ozzy was not used to int erpret this result as normal/abnormal . [facility] Hospit[id number] 19:24:00 Test Item Value Reference Range Interpretation Comments Plt Morph (test code = Normal (08/24/14 1:24 Plt Morph) PM) [facility] AND [id number] 19:24:00 Test Item Value Reference Range Interpretation Comments UA Sq Epi (test code = UA Sq Occasional /LPF Epi) [facility] AND [id number] 19:24:00 Test Item Value Reference Range Interpretation Comments UA Bacteria (test code = UA Occasional /HPF Bacteria) [facility] AND [id number] 19:24:00 Test Item Value Reference Range Interpretation Comments UA Mucus (test code = None Seen (08/24/14 UA Mucus) 1:24 PM) [facility] AND [id number] 19:24:00 Test Item Value Reference Range Interpretation Comments UA WBC (test code = UA WBC) 0-2 /HPF [facility] AND [id number] 19:24:00 Test Item Value Reference Range Interpretation Comments UA RBC (test code = 0-2 /HPF See_Comment [Automa gaye message] The UA RBC) system which ge nerated this result tra nsmitted reference range : <=2. The reference range was not used to interpr et this result as satish l/abnormal. [facility] AND [id number] 19:24:00 Test Item Value Reference Range Interpretation Comments UA Leuk Est (test Moderate *ABN*(08/24/14 code = UA Leuk Est) 1:24 PM) [facility] AND [id number] 19:24:00 Test Item Value Reference Range Interpretation Comments UA Nitrite (test code Negative (08/24/14 1:24 = UA Nitrite) PM) [facility] AND [id number] 19:24:00 Test Item Value Reference Range Interpretation Comments UA Urobilinogen (test code = UA 0.2 0.1-1.0 Urobilinogen) [facility] AND [id number] 19:24:00 Test Item Value Reference Range Interpretation Comments UA Ketones (test code Negative *NA*(08/24/14 = UA Ketones) 1:24 PM) [facility] AND [id number] 19:24:00 Test Item Value Reference Range Interpretation Comments UA Blood (test code = Negative (08/24/14 1:24 UA Blood) PM) [facility] AND [id number] 19:24:00 Test Item Value Reference Range Interpretation Comments UA Bili (test code = Negative *NA*(08/24/14 UA Bili) 1:24 PM) [facility] AND [id number] 19:24:00 Test Item Value Reference Range Interpretation Comments UA Color (test code = Yellow *NA*(08/24/14 UA Color) 1:24 PM) [facility] AND [id number] 19:24:00 Test Item Value Reference Range Interpretation Comments UA Glucose (test code Negative (08/24/14 1:24 = UA Glucose) PM) [facility] AND [id number] 19:24:00 Test Item Value Reference Range Interpretation Comments UA Protein (test code Negative (08/24/14 1:24 = UA Protein) PM) [facility] AND [id number] 19:24:00 Test Item Value Reference Range Interpretation Comments UA pH (test code = UA pH) 6.0 1 5.0-8.0 [facility] AND [id number] 19:24:00 Test Item Value Reference Range Interpretation Comments UA Spec Grav (test code *NA*(08/24/14 1:24 PM) = UA Spec Grav) [facility] AND [id number] 19:24:00 Test Item Value Reference Range Interpretation Comments UA Turbidity (test code = Clear (08/24/14 1:24 UA Turbidity) PM) [facility]2015-01-12 19:24:00 Test Item Value Reference Range Interpretation Comments Lipase Lvl (test code = Lipase Lvl) 104 73-393 [facility]2015-01-12 19:24:00 Test Item Value Reference Range Interpretation Comments eGFR (test code = eGFR) 109 [facility]2015-01-12 19:24:00 Test Item Value Reference Range Interpretation Comments Bili Total (test code = Bili Total) 0.6 0.2-1.3 [facility]2015-01-12 19:24:00 Test Item Value Reference Range Interpretation Comments Alk Phos (test code = Alk Phos) 72 39-136 [facility]2015-01-12 19:24:00 Test Item Value Reference Range Interpretation Comments Calcium Lvl (test code = Calcium Lvl) 8.8 8.5-10.5 [facility]2015-01-12 19:24:00 Test Item Value Reference Range Interpretation Comments CO2 (test code = CO2) 28 24-32 [facility]2015-01-12 19:24:00 Test Item Value Reference Range Interpretation Comments Chloride Lvl (test code = Chloride Lvl) 107 95-109 [facility]2015-01-12 19:24:00 Test Item Value Reference Range Interpretation Comments Potassium Lvl (test code = Potassium 3.9 3.5-5.1 Lvl) [facility]2015-01-12 19:24:00 Test Item Value Reference Range Interpretation Comments Glucose Lvl (test code = Glucose Lvl) 90 70-99 [facility]2015-01-12 19:24:00 Test Item Value Reference Range Interpretation Comments Sodium Lvl (test code = Sodium Lvl) 138 135-145 [facility]2015-01-12 19:24:00 Test Item Value Reference Range Interpretation Comments BUN (test code = BUN) 7 7-22 [facility]2015-01-12 19:24:00 Test Item Value Reference Range Interpretation Comments Creatinine Lvl (test code = Creatinine 0.7 0.5-1.4 Lvl) [facility]2015-01-12 19:24:00 Test Item Value Reference Range Interpretation Comments ALT (test code = ALT) 23 See_Comment [Auto mated message] The system which ge nerated this result transmit gaye reference range : <=65. The reference range was not used to interpr et this result as satish l/abnormal. [facility]2015-01-12 19:24:00 Test Item Value Reference Range Interpretation Comments AST (test code = AST) 12 See_Comment [Auto mated message] The system which ge nerated this result transmit gaye reference range : <=37. The reference range was not used to interpr et this result as satish l/abnormal. [facility]2015-01-12 19:24:00 Test Item Value Reference Range Interpretation Comments Albumin Lvl (test code = Albumin Lvl) 3.8 3.5-5.0 [facility]2015-01-12 19:24:00 Test Item Value Reference Range Interpretation Comments Total Protein (test code = Total 8.0 6.4-8.4 Protein) [facility]2015-01-12 19:24:00 Test Item Value Reference Range Interpretation Comments A/G Ratio (test code = A/G Ratio) 0.9 0.7-1.6 [facility]2015-01-12 19:24:00 Test Item Value Reference Range Interpretation Comments AGAP (test code = AGAP) 6.9 10.0-20.0 [facility] [id number] 19:24:00 Test Item Value Reference Range Interpretation Comments B/C Ratio (test code = B/C Ratio) 10 6-25 [facility] [id number] 19:24:00 Test Item Value Reference Range Interpretation Comments Globulin (test code = Globulin) 4.2 2.0-4.0 [id number] 19:24:00 Test Item Value Reference Range Interpretation Comments S Preg (test code = S Negative *NA*(08/24/14 Preg) 1:24 PM) [facility] Hospit[id number] 19:24:00 Test Item Value Reference Range Interpretation Comments WBC (test code = WBC) 11.3 3.7-10.4 [facility] HospitalBwhnlziPIFQKSUFEN4266-95-25 19:24:00 Test Item Value Reference Range Interpretation Comments RBC (test code = RBC) 4.75 4.20-5.40 [facility] HospitalHjwdtzuSELCJGBRWW3277-57-63 19:24:00 Test Item Value Reference Range Interpretation Comments Platelet (test code = Platelet) 402 133-450 [facility] Hospit[id number] 19:24:00 Test Item Value Reference Range Interpretation Comments MCV (test code = MCV) 89.9 80.0-98.0 [facility] HospitalQmjfmkgJORUIMYCKZ7903-77-71 19:24:00 Test Item Value Reference Range Interpretation Comments Hct (test code = Hct) 42.7 36.0-48.0 [facility] HospitalZzkcdqqXRRNBIHTPX4886-55-73 19:24:00 Test Item Value Reference Range Interpretation Comments Hgb (test code = Hgb) 14.5 12.0-16.0 [facility] HospitalJnxjpekZCGEICFKXR7398-40-49 19:24:00 Test Item Value Reference Range Interpretation Comments RDW (test code = RDW) 13.5 11.5-14.5 [facility] HospitalZmymsgtXMIIZFRYWR8662-36-97 19:24:00 Test Item Value Reference Range Interpretation Comments MCHC (test code = MCHC) 34.0 32.0-36.0 [facility] HospitalAnwozwuFWZTLRDVDU6111-07-40 19:24:00 Test Item Value Reference Range Interpretation Comments MCH (test code = MCH) 30.6 pg 27.0-31.0 [facility] Hospit[id number] 19:24:00 Test Item Value Reference Range Interpretation Comments MPV (test code = MPV) 8.1 7.4-10.4 [facility] HospitalCbjtsagOBUSSXXGON2077-20-24 19:24:00 Test Item Value Reference Range Interpretation Comments Stomatocyte (test code = Stomatocyte) [facility] Hospit[id number] 19:24:00 Test Item Value Reference Range Interpretation Comments Basophils # (test code 0.1 See_Comment [Aut omated message] The = Basophils #) system which generated this result tra nsmitted reference range : <=0.2. The reference r ozzy was not used to int erpret this result as normal/abnormal . [facility] HospitalMtfdvhjTYZAQXGRBI3923-45-87 19:24:00 Test Item Value Reference Range Interpretation Comments Eosinophils # (test code 0.2 See_Comment [A utomated message] The = Eosinophils #) system whic h generated this result tra nsmitted reference range : <=0.5. The reference r ozzy was not used to int erpret this result as normal/abnormal . [facility] HospitalMkowkctWNJTTHADSS0456-53-39 19:24:00 Test Item Value Reference Range Interpretation Comments Hypochrom (test code = 1+ (08/24/14 1:24 PM) Hypochrom) [facility] Hospit[id number] 19:24:00 Test Item Value Reference Range Interpretation Comments Lymphocytes # (test code = Lymphocytes 2.8 1.0-5.5 #) [facility] HospitalZsenvjhGVZVECUUSX5732-81-94 19:24:00 Test Item Value Reference Range Interpretation Comments Segs-Bands # (test code = Segs-Bands #) 8.1 1.5-8.1 [facility] Hospit[id number] 19:24:00 Test Item Value Reference Range Interpretation Comments Monocytes # (test code 0.2 See_Comment [Aut omated message] The = Monocytes #) system which generated this result tra nsmitted reference range : <=0.8. The reference r ozzy was not used to int erpret this result as normal/abnormal . [facility] HospitalKkojpnjUABAYPLEQZ5359-95-90 19:24:00 Test Item Value Reference Range Interpretation Comments Lymphocytes (test code = Lymphocytes) 24.5 20.0-40.0 [facility] HospitalDljdjmnCHWVSMXLKH8007-46-36 19:24:00 Test Item Value Reference Range Interpretation Comments Segs (test code = Segs) 71.8 45.0-75.0 [facility] HospitalIneliacYHXFFTPEFU2140-01-43 19:24:00 Test Item Value Reference Range Interpretation Comments Basophils (test code = 0.6 See_Comment [Aut omated message] The Basophils) system which ge nerated this result tra nsmitted reference range : <=1.0. The reference r ozzy was not used to int erpret this result as normal/abnormal . [facility] HospitalGavzhdzAMDIKDCOOD2568-18-77 19:24:00 Test Item Value Reference Range Interpretation Comments Monocytes (test code = Monocytes) 1.5 2.0-12.0 [facility] HospitalGyuwvjeYAEYPIIDDI9232-28-30 19:24:00 Test Item Value Reference Range Interpretation Comments Eosinophils (test code = 1.6 See_Comment [A utomated message] The Eosinophils) system which ge nerated this result tra nsmitted reference range : <=4.0. The reference r ozzy was not used to int erpret this result as normal/abnormal . [facility] HospitalEkxvvfzONLOYHQVKW2517-28-34 19:24:00 Test Item Value Reference Range Interpretation Comments Plt Morph (test code = Normal (08/24/14 1:24 Plt Morph) PM) [facility] [id number] 19:24:00 Test Item Value Reference Range Interpretation Comments UA Sq Epi (test code = UA Sq Occasional /LPF Epi) [facility] [id number] 19:24:00 Test Item Value Reference Range Interpretation Comments UA Bacteria (test code = UA Occasional /HPF Bacteria) [facility] [id number] 19:24:00 Test Item Value Reference Range Interpretation Comments UA Mucus (test code = None Seen (08/24/14 UA Mucus) 1:24 PM) [facility] AND [id number] 19:24:00 Test Item Value Reference Range Interpretation Comments UA WBC (test code = UA WBC) 0-2 /HPF [facility] [id number] 19:24:00 Test Item Value Reference Range Interpretation Comments UA RBC (test code = 0-2 /HPF See_Comment [Automa gaye message] The UA RBC) system which ge nerated this result tra nsmitted reference range : <=2. The reference range was not used to interpr et this result as satish l/abnormal. [facility] AND [id number] 19:24:00 Test Item Value Reference Range Interpretation Comments UA Leuk Est (test Moderate *ABN*(08/24/14 code = UA Leuk Est) 1:24 PM) [facility] [id number] 19:24:00 Test Item Value Reference Range Interpretation Comments UA Nitrite (test code Negative (08/24/14 1:24 = UA Nitrite) PM) [facility] AND [id number] 19:24:00 Test Item Value Reference Range Interpretation Comments UA Urobilinogen (test code = UA 0.2 0.1-1.0 Urobilinogen) [facility] [id number] 19:24:00 Test Item Value Reference Range Interpretation Comments UA Ketones (test code Negative *NA*(08/24/14 = UA Ketones) 1:24 PM) [facility] AND [id number] 19:24:00 Test Item Value Reference Range Interpretation Comments UA Blood (test code = Negative (08/24/14 1:24 UA Blood) PM) [facility] AND [id number] 19:24:00 Test Item Value Reference Range Interpretation Comments UA Bili (test code = Negative *NA*(08/24/14 UA Bili) 1:24 PM) [facility] [id number] 19:24:00 Test Item Value Reference Range Interpretation Comments UA Color (test code = Yellow *NA*(08/24/14 UA Color) 1:24 PM) [facility] AND [id number] 19:24:00 Test Item Value Reference Range Interpretation Comments UA Glucose (test code Negative (08/24/14 1:24 = UA Glucose) PM) [facility] AND [id number] 19:24:00 Test Item Value Reference Range Interpretation Comments UA Protein (test code Negative (08/24/14 1:24 = UA Protein) PM) [facility] AND [id number] 19:24:00 Test Item Value Reference Range Interpretation Comments UA pH (test code = UA pH) 6.0 1 5.0-8.0 [facility] AND [id number] 19:24:00 Test Item Value Reference Range Interpretation Comments UA Spec Grav (test code *NA*(08/24/14 1:24 PM) = UA Spec Grav) [facility] [id number] 19:24:00 Test Item Value Reference Range Interpretation Comments UA Turbidity (test code = Clear (08/24/14 1:24 UA Turbidity) PM) [facility]2015-01-12 19:24:00 Test Item Value Reference Range Interpretation Comments Lipase Lvl (test code = Lipase Lvl) 104 73-393 [facility]2015-01-12 19:24:00 Test Item Value Reference Range Interpretation Comments eGFR (test code = eGFR) 109 [facility]2015-01-12 19:24:00 Test Item Value Reference Range Interpretation Comments Bili Total (test code = Bili Total) 0.6 0.2-1.3 [facility]2015-01-12 19:24:00 Test Item Value Reference Range Interpretation Comments Alk Phos (test code = Alk Phos) 72 39-136 [facility]2015-01-12 19:24:00 Test Item Value Reference Range Interpretation Comments Calcium Lvl (test code = Calcium Lvl) 8.8 8.5-10.5 [facility]2015-01-12 19:24:00 Test Item Value Reference Range Interpretation Comments CO2 (test code = CO2) 28 24-32 [facility]2015-01-12 19:24:00 Test Item Value Reference Range Interpretation Comments Chloride Lvl (test code = Chloride Lvl) 107 95-109 [facility]2015-01-12 19:24:00 Test Item Value Reference Range Interpretation Comments Potassium Lvl (test code = Potassium 3.9 3.5-5.1 Lvl) [facility]2015-01-12 19:24:00 Test Item Value Reference Range Interpretation Comments Glucose Lvl (test code = Glucose Lvl) 90 70-99 [facility]2015-01-12 19:24:00 Test Item Value Reference Range Interpretation Comments Sodium Lvl (test code = Sodium Lvl) 138 135-145 [facility]2015-01-12 19:24:00 Test Item Value Reference Range Interpretation Comments BUN (test code = BUN) 7 7-22 [facility]2015-01-12 19:24:00 Test Item Value Reference Range Interpretation Comments Creatinine Lvl (test code = Creatinine 0.7 0.5-1.4 Lvl) [place] [id number] 19:24:00 Test Item Value Reference Range Interpretation Comments ALT (test code = ALT) 23 See_Comment [Auto mated message] The system which ge nerated this result transmit gaye reference range : <=65. The reference range was not used to interpr et this result as satish l/abnormal. [facility]2015-01-12 19:24:00 Test Item Value Reference Range Interpretation Comments AST (test code = AST) 12 See_Comment [Auto mated message] The system which ge nerated this result transmit gaye reference range : <=37. The reference range was not used to interpr et this result as satish l/abnormal. [facility]2015-01-12 19:24:00 Test Item Value Reference Range Interpretation Comments Albumin Lvl (test code = Albumin Lvl) 3.8 3.5-5.0 [facility]2015-01-12 19:24:00 Test Item Value Reference Range Interpretation Comments Total Protein (test code = Total 8.0 6.4-8.4 Protein) [facility]2015-01-12 19:24:00 Test Item Value Reference Range Interpretation Comments A/G Ratio (test code = A/G Ratio) 0.9 0.7-1.6 [facility]2015-01-12 19:24:00 Test Item Value Reference Range Interpretation Comments AGAP (test code = AGAP) 6.9 10.0-20.0 [facility]2015-01-12 19:24:00 Test Item Value Reference Range Interpretation Comments B/C Ratio (test code = B/C Ratio) 10 6-25 [facility]2015-01-12 19:24:00 Test Item Value Reference Range Interpretation Comments Globulin (test code = Globulin) 4.2 2.0-4.0 [facility] CenterBnhrhirNBTSAPCBDRDJH2513-72-43 19:24:00 Test Item Value Reference Range Interpretation Comments S Preg (test code = S Negative *NA*(08/24/14 Preg) 1:24 PM) [facility] HospitalTumtflcPLVESJPXBN1683-74-93 19:24:00 Test Item Value Reference Range Interpretation Comments WBC (test code = WBC) 11.3 3.7-10.4 [facility] Hospit[id number] 19:24:00 Test Item Value Reference Range Interpretation Comments RBC (test code = RBC) 4.75 4.20-5.40 [facility] HospitalXacvpxvIAEIJIPHHZ3453-46-26 19:24:00 Test Item Value Reference Range Interpretation Comments Platelet (test code = Platelet) 402 133-450 [facility] HospitalDrkuabhQMLLBGIYSF8553-00-73 19:24:00 Test Item Value Reference Range Interpretation Comments MCV (test code = MCV) 89.9 80.0-98.0 [facility] HospitalIgzhjscRYUHNZPDME2665-08-17 19:24:00 Test Item Value Reference Range Interpretation Comments Hct (test code = Hct) 42.7 36.0-48.0 [facility] HospitalDgdrvieMMLIFULVFD7457-76-94 19:24:00 Test Item Value Reference Range Interpretation Comments Hgb (test code = Hgb) 14.5 12.0-16.0 [facility] HospitalJipevlkSPQEEDIYQN1696-14-88 19:24:00 Test Item Value Reference Range Interpretation Comments RDW (test code = RDW) 13.5 11.5-14.5 [facility] HospitalYblnmgtJPOHDRDRWZ4956-29-51 19:24:00 Test Item Value Reference Range Interpretation Comments MCHC (test code = MCHC) 34.0 32.0-36.0 [facility] HospitalZgusrghIVLUAOSZYG2619-75-99 19:24:00 Test Item Value Reference Range Interpretation Comments MCH (test code = MCH) 30.6 pg 27.0-31.0 [facility] Hospit[id number] 19:24:00 Test Item Value Reference Range Interpretation Comments MPV (test code = MPV) 8.1 7.4-10.4 [facility] HospitalElsjexfJCYFAHJMVT3981-88-88 19:24:00 Test Item Value Reference Range Interpretation Comments Stomatocyte (test code = Stomatocyte) [facility] HospitalUksmofzUDRGKWMETR4991-01-36 19:24:00 Test Item Value Reference Range Interpretation Comments Basophils # (test code 0.1 See_Comment [Aut omated message] The = Basophils #) system which generated this result tra nsmitted reference range : <=0.2. The reference r ozzy was not used to int erpret this result as normal/abnormal . [facility] HospitalLxggzoiRPCOQZADNO0576-40-09 19:24:00 Test Item Value Reference Range Interpretation Comments Eosinophils # (test code 0.2 See_Comment [A utomated message] The = Eosinophils #) system whic h generated this result tra nsmitted reference range : <=0.5. The reference r ozzy was not used to int erpret this result as normal/abnormal . [facility] HospitalDuaelqoLLKNJGYYQI7875-76-77 19:24:00 Test Item Value Reference Range Interpretation Comments Hypochrom (test code = 1+ (08/24/14 1:24 PM) Hypochrom) [facility] HospitalT[id number] 19:24:00 Test Item Value Reference Range Interpretation Comments Lymphocytes # (test code = Lymphocytes 2.8 1.0-5.5 #) [facility] Hospit[id number] 19:24:00 Test Item Value Reference Range Interpretation Comments Segs-Bands # (test code = Segs-Bands #) 8.1 1.5-8.1 [facility] HospitalErjstlwAOZMIZZFXQ7196-73-73 19:24:00 Test Item Value Reference Range Interpretation Comments Monocytes # (test code 0.2 See_Comment [Aut omated message] The = Monocytes #) system which generated this result tra nsmitted reference range : <=0.8. The reference r ozzy was not used to int erpret this result as normal/abnormal . [facility] HospitalZilwimfWXUOSSBTEH6845-21-93 19:24:00 Test Item Value Reference Range Interpretation Comments Lymphocytes (test code = Lymphocytes) 24.5 20.0-40.0 [facility] HospitalRmpeyfwIGKROKEAKS4644-24-24 19:24:00 Test Item Value Reference Range Interpretation Comments Segs (test code = Segs) 71.8 45.0-75.0 [facility] HospitalQdhxighDZVWCMBXWU1078-78-08 19:24:00 Test Item Value Reference Range Interpretation Comments Basophils (test code = 0.6 See_Comment [Aut omated message] The Basophils) system which ge nerated this result tra nsmitted reference range : <=1.0. The reference r ozzy was not used to int erpret this result as normal/abnormal . [facility] H[id number] 19:24:00 Test Item Value Reference Range Interpretation Comments Monocytes (test code = Monocytes) 1.5 2.0-12.0 [facility] H[id number] 19:24:00 Test Item Value Reference Range Interpretation Comments Eosinophils (test code = 1.6 See_Comment [A utomated message] The Eosinophils) system which ge nerated this result tra nsmitted reference range : <=4.0. The reference r ozzy was not used to int erpret this result as normal/abnormal . [facility] H[id number] 19:24:00 Test Item Value Reference Range Interpretation Comments Plt Morph (test code = Normal (08/24/14 1:24 Plt Morph) PM) [facility] AND [id number] 19:24:00 Test Item Value Reference Range Interpretation Comments UA Sq Epi (test code = UA Sq Occasional /LPF Epi) [facility] AND [id number] 19:24:00 Test Item Value Reference Range Interpretation Comments UA Bacteria (test code = UA Occasional /HPF Bacteria) [facility] AND [id number] 19:24:00 Test Item Value Reference Range Interpretation Comments UA Mucus (test code = None Seen (08/24/14 UA Mucus) 1:24 PM) [facility] AND [id number] 19:24:00 Test Item Value Reference Range Interpretation Comments UA WBC (test code = UA WBC) 0-2 /HPF [facility] AND [id number] 19:24:00 Test Item Value Reference Range Interpretation Comments UA RBC (test code = 0-2 /HPF See_Comment [Automa gaye message] The UA RBC) system which ge nerated this result tra nsmitted reference range : <=2. The reference range was not used to interpr et this result as satish l/abnormal. [facility] AND [id number] 19:24:00 Test Item Value Reference Range Interpretation Comments UA Leuk Est (test Moderate *ABN*(08/24/14 code = UA Leuk Est) 1:24 PM) [facility] AND [id number] 19:24:00 Test Item Value Reference Range Interpretation Comments UA Nitrite (test code Negative (08/24/14 1:24 = UA Nitrite) PM) [facility] [id number] 19:24:00 Test Item Value Reference Range Interpretation Comments UA Urobilinogen (test code = UA 0.2 0.1-1.0 Urobilinogen) [facility] [id number] 19:24:00 Test Item Value Reference Range Interpretation Comments UA Ketones (test code Negative *NA*(08/24/14 = UA Ketones) 1:24 PM) [facility] [id number] 19:24:00 Test Item Value Reference Range Interpretation Comments UA Blood (test code = Negative (08/24/14 1:24 UA Blood) PM) [facility] AND [id number] 19:24:00 Test Item Value Reference Range Interpretation Comments UA Bili (test code = Negative *NA*(08/24/14 UA Bili) 1:24 PM) [facility] AND [id number] 19:24:00 Test Item Value Reference Range Interpretation Comments UA Color (test code = Yellow *NA*(08/24/14 UA Color) 1:24 PM) [facility] AND [id number] 19:24:00 Test Item Value Reference Range Interpretation Comments UA Glucose (test code Negative (08/24/14 1:24 = UA Glucose) PM) [facility] AND [id number] 19:24:00 Test Item Value Reference Range Interpretation Comments UA Protein (test code Negative (08/24/14 1:24 = UA Protein) PM) [facility] AND [id number] 19:24:00 Test Item Value Reference Range Interpretation Comments UA pH (test code = UA pH) 6.0 1 5.0-8.0 [facility] AND [id number] 19:24:00 Test Item Value Reference Range Interpretation Comments UA Spec Grav (test code *NA*(08/24/14 1:24 PM) = UA Spec Grav) [facility] AND [id number] 19:24:00 Test Item Value Reference Range Interpretation Comments UA Turbidity (test code = Clear (08/24/14 1:24 UA Turbidity) PM) [facility] [id number] 19:24:00 Test Item Value Reference Range Interpretation Comments Lipase Lvl (test code = Lipase Lvl) 104 73-393 [facility]2015-01-12 19:24:00 Test Item Value Reference Range Interpretation Comments eGFR (test code = eGFR) 109 [facility]2015-01-12 19:24:00 Test Item Value Reference Range Interpretation Comments Bili Total (test code = Bili Total) 0.6 0.2-1.3 [facility]2015-01-12 19:24:00 Test Item Value Reference Range Interpretation Comments Alk Phos (test code = Alk Phos) 72 39-136 [facility]2015-01-12 19:24:00 Test Item Value Reference Range Interpretation Comments Calcium Lvl (test code = Calcium Lvl) 8.8 8.5-10.5 [facility]2015-01-12 19:24:00 Test Item Value Reference Range Interpretation Comments CO2 (test code = CO2) 28 24-32 [facility]2015-01-12 19:24:00 Test Item Value Reference Range Interpretation Comments Chloride Lvl (test code = Chloride Lvl) 107 95-109 [facility]2015-01-12 19:24:00 Test Item Value Reference Range Interpretation Comments Potassium Lvl (test code = Potassium 3.9 3.5-5.1 Lvl) [facility]2015-01-12 19:24:00 Test Item Value Reference Range Interpretation Comments Glucose Lvl (test code = Glucose Lvl) 90 70-99 [facility]2015-01-12 19:24:00 Test Item Value Reference Range Interpretation Comments Sodium Lvl (test code = Sodium Lvl) 138 135-145 [facility]2015-01-12 19:24:00 Test Item Value Reference Range Interpretation Comments BUN (test code = BUN) 7 7-22 [facility]2015-01-12 19:24:00 Test Item Value Reference Range Interpretation Comments Creatinine Lvl (test code = Creatinine 0.7 0.5-1.4 Lvl) [facility]2015-01-12 19:24:00 Test Item Value Reference Range Interpretation Comments ALT (test code = ALT) 23 See_Comment [Auto mated message] The system which ge nerated this result transmit gaye reference range : <=65. The reference range was not used to interpr et this result as satish l/abnormal. [facility]2015-01-12 19:24:00 Test Item Value Reference Range Interpretation Comments AST (test code = AST) 12 See_Comment [Auto mated message] The system which ge nerated this result transmit gaye reference range : <=37. The reference range was not used to interpr et this result as satish l/abnormal. [facility]2015-01-12 19:24:00 Test Item Value Reference Range Interpretation Comments Albumin Lvl (test code = Albumin Lvl) 3.8 3.5-5.0 [facility]2015-01-12 19:24:00 Test Item Value Reference Range Interpretation Comments Total Protein (test code = Total 8.0 6.4-8.4 Protein) [facility]2015-01-12 19:24:00 Test Item Value Reference Range Interpretation Comments A/G Ratio (test code = A/G Ratio) 0.9 0.7-1.6 [facility]2015-01-12 19:24:00 Test Item Value Reference Range Interpretation Comments AGAP (test code = AGAP) 6.9 10.0-20.0 [facility]2015-01-12 19:24:00 Test Item Value Reference Range Interpretation Comments B/C Ratio (test code = B/C Ratio) 10 6-25 [facility]2015-01-12 19:24:00 Test Item Value Reference Range Interpretation Comments Globulin (test code = Globulin) 4.2 2.0-4.0 [id number] 19:24:00 Test Item Value Reference Range Interpretation Comments S Preg (test code = S Negative *NA*(08/24/14 Preg) 1:24 PM) [facility] H[id number] 19:24:00 Test Item Value Reference Range Interpretation Comments WBC (test code = WBC) 11.3 3.7-10.4 [facility] HospitalTgwcknpHHVQLQHUJO2630-07-52 19:24:00 Test Item Value Reference Range Interpretation Comments RBC (test code = RBC) 4.75 4.20-5.40 [facility] HospitalSmhzwhbNLZLTLJPVE9925-29-74 19:24:00 Test Item Value Reference Range Interpretation Comments Platelet (test code = Platelet) 402 133-450 [facility] Hospit[id number] 19:24:00 Test Item Value Reference Range Interpretation Comments MCV (test code = MCV) 89.9 80.0-98.0 [facility] HospitalDrjivpfAROUFEDQVJ2804-06-97 19:24:00 Test Item Value Reference Range Interpretation Comments Hct (test code = Hct) 42.7 36.0-48.0 [facility] HospitalY[id number] 19:24:00 Test Item Value Reference Range Interpretation Comments Hgb (test code = Hgb) 14.5 12.0-16.0 [facility] Hospit[id number] 19:24:00 Test Item Value Reference Range Interpretation Comments RDW (test code = RDW) 13.5 11.5-14.5 [facility] HospitalMnuifrzBZWSZJVRNI1927-84-20 19:24:00 Test Item Value Reference Range Interpretation Comments MCHC (test code = MCHC) 34.0 32.0-36.0 [facility] HospitalWrkdpdaEHLLLAUBKL4530-38-16 19:24:00 Test Item Value Reference Range Interpretation Comments MCH (test code = MCH) 30.6 pg 27.0-31.0 [facility] Hospit[id number] 19:24:00 Test Item Value Reference Range Interpretation Comments MPV (test code = MPV) 8.1 7.4-10.4 [facility] Hos[id number] 19:24:00 Test Item Value Reference Range Interpretation Comments Stomatocyte (test code = Stomatocyte) [facility] Hos[id number] 19:24:00 Test Item Value Reference Range Interpretation Comments Basophils # (test code 0.1 See_Comment [Aut omated message] The = Basophils #) system which generated this result tra nsmitted reference range : <=0.2. The reference r ozzy was not used to int erpret this result as normal/abnormal . [facility] Hos[id number] 19:24:00 Test Item Value Reference Range Interpretation Comments Eosinophils # (test code 0.2 See_Comment [A utomated message] The = Eosinophils #) system whic h generated this result tra nsmitted reference range : <=0.5. The reference r ozzy was not used to int erpret this result as normal/abnormal . [facility] Hospit[id number] 19:24:00 Test Item Value Reference Range Interpretation Comments Hypochrom (test code = 1+ (08/24/14 1:24 PM) Hypochrom) [facility] H[id number] 19:24:00 Test Item Value Reference Range Interpretation Comments Lymphocytes # (test code = Lymphocytes 2.8 1.0-5.5 #) [facility] Hos[id number] 19:24:00 Test Item Value Reference Range Interpretation Comments Segs-Bands # (test code = Segs-Bands #) 8.1 1.5-8.1 [facility] Hospit[id number] 19:24:00 Test Item Value Reference Range Interpretation Comments Monocytes # (test code 0.2 See_Comment [Aut omated message] The = Monocytes #) system which generated this result tra nsmitted reference range : <=0.8. The reference r ozzy was not used to int erpret this result as normal/abnormal . [facility] Hospit[id number] 19:24:00 Test Item Value Reference Range Interpretation Comments Lymphocytes (test code = Lymphocytes) 24.5 20.0-40.0 [facility] Hospit[id number] 19:24:00 Test Item Value Reference Range Interpretation Comments Segs (test code = Segs) 71.8 45.0-75.0 [facility] Hospit[id number] 19:24:00 Test Item Value Reference Range Interpretation Comments Basophils (test code = 0.6 See_Comment [Aut omated message] The Basophils) system which ge nerated this result tra nsmitted reference range : <=1.0. The reference r ozzy was not used to int erpret this result as normal/abnormal . [facility] Hospit[id number] 19:24:00 Test Item Value Reference Range Interpretation Comments Monocytes (test code = Monocytes) 1.5 2.0-12.0 [facility] HospitalK[id number] 19:24:00 Test Item Value Reference Range Interpretation Comments Eosinophils (test code = 1.6 See_Comment [A utomated message] The Eosinophils) system which ge nerated this result tra nsmitted reference range : <=4.0. The reference r ozzy was not used to int erpret this result as normal/abnormal . [facility]bcdrueVKDRBXYUVC7957-09-23 19:24:00 Test Item Value Reference Range Interpretation Comments Plt Morph (test code = Normal (08/24/14 1:24 Plt Morph) PM) [facility] AND [id number] 19:24:00 Test Item Value Reference Range Interpretation Comments UA Sq Epi (test code = UA Sq Occasional /LPF Epi) [facility] AND [id number] 19:24:00 Test Item Value Reference Range Interpretation Comments UA Bacteria (test code = UA Occasional /HPF Bacteria) [facility] AND [id number] 19:24:00 Test Item Value Reference Range Interpretation Comments UA Mucus (test code = None Seen (08/24/14 UA Mucus) 1:24 PM) [facility] AND [id number] 19:24:00 Test Item Value Reference Range Interpretation Comments UA WBC (test code = UA WBC) 0-2 /HPF [facility] AND [id number] 19:24:00 Test Item Value Reference Range Interpretation Comments UA RBC (test code = 0-2 /HPF See_Comment [Automa gaye message] The UA RBC) system which ge nerated this result tra nsmitted reference range : <=2. The reference range was not used to interpr et this result as satish l/abnormal. [facility] AND [id number] 19:24:00 Test Item Value Reference Range Interpretation Comments UA Leuk Est (test Moderate *ABN*(08/24/14 code = UA Leuk Est) 1:24 PM) [facility] AND [id number] 19:24:00 Test Item Value Reference Range Interpretation Comments UA Nitrite (test code Negative (08/24/14 1:24 = UA Nitrite) PM) [facility] AND [id number] 19:24:00 Test Item Value Reference Range Interpretation Comments UA Urobilinogen (test code = UA 0.2 0.1-1.0 Urobilinogen) [facility] AND [id number] 19:24:00 Test Item Value Reference Range Interpretation Comments UA Ketones (test code Negative *NA*(08/24/14 = UA Ketones) 1:24 PM) [facility] AND [id number] 19:24:00 Test Item Value Reference Range Interpretation Comments UA Blood (test code = Negative (08/24/14 1:24 UA Blood) PM) [facility] AND [id number] 19:24:00 Test Item Value Reference Range Interpretation Comments UA Bili (test code = Negative *NA*(08/24/14 UA Bili) 1:24 PM) [facility] AND [id number] 19:24:00 Test Item Value Reference Range Interpretation Comments UA Color (test code = Yellow *NA*(08/24/14 UA Color) 1:24 PM) [facility] AND [id number] 19:24:00 Test Item Value Reference Range Interpretation Comments UA Glucose (test code Negative (08/24/14 1:24 = UA Glucose) PM) [facility] AND [id number] 19:24:00 Test Item Value Reference Range Interpretation Comments UA Protein (test code Negative (08/24/14 1:24 = UA Protein) PM) [facility] AND [id number] 19:24:00 Test Item Value Reference Range Interpretation Comments UA pH (test code = UA pH) 6.0 1 5.0-8.0 [facility] AND [id number] 19:24:00 Test Item Value Reference Range Interpretation Comments UA Spec Grav (test code *NA*(08/24/14 1:24 PM) = UA Spec Grav) [facility] AND [id number] 19:24:00 Test Item Value Reference Range Interpretation Comments UA Turbidity (test code = Clear (08/24/14 1:24 UA Turbidity) PM) [facility] Notes Date/Time Note Provider Source 2016-02-13 01:41:05-00:00 Chest 1view DX 02/13/2016 1:07 AM CDT [facility] Ordering Physician: Malorie Fishman MD CLINICAL HISTORY: Chest pain; TECHNIQUE: AP view of the chest were obtained. COMPARISON: None FINDINGS: Lungs are clear. No pleural effusion of pneumothorax is present. Cardiomediastinal silhouette is normal. Bones are normal. IMPRESSION: No acute abnormality of the chest. SL: SSENDOS-ISAK 2016-02-13 01:41:05-00:00 Chest 1view DX 02/13/2016 1:07 AM [facility] Ordering Physician: Malorie Fishman MD CLINICAL HISTORY: Chest pain; TECHNIQUE: AP view of the chest were obtained. COMPARISON: None FINDINGS: Lungs are clear. No pleural effusion of pneumothorax is present. Cardiomediastinal silhouette is normal. Bones are normal. IMPRESSION: No acute abnormality of the chest. SL: TETEZARI 2016-02-13 01:41:05-00:00 Chest 1view DX 02/13/2016 1:07 AM [facility] Ordering Physician: Malorie Fishman MD CLINICAL HISTORY: Chest pain; TECHNIQUE: AP view of the chest were obtained. COMPARISON: None FINDINGS: Lungs are clear. No pleural effusion of pneumothorax is present. Cardiomediastinal silhouette is normal. Bones are normal. IMPRESSION: No acute abnormality of the chest. SL: TETESEANLIMIAN 2016-02-13 01:41:05-00:00 Chest 1view DX 02/13/2016 1:07 AM [facility] Ordering Physician: Malorie Fishman MD CLINICAL HISTORY: Chest pain; TECHNIQUE: AP view of the chest were obtained. COMPARISON: None FINDINGS: Lungs are clear. No pleural effusion of pneumothorax is present. Cardiomediastinal silhouette is normal. Bones are normal. IMPRESSION: No acute abnormality of the chest. SL: COLTMIAN 2015-06-08 15:25:56-00:00 EXAM: US PELVIS TRANSABDOMINAL SOFIA Alvarez EXAM: US PELVIS TRANSVAGINAL INDICATION: Leiomyoma. COMPARISON: Pelvic ultrasound performed 0. TECHNIQUE: Multiplanar john estephania and color Doppler ultrasound images of the pelvis were obtained transabdominally through a distended urinary bladder followed by transvaginal examination postvoid. FINDINGS: Limited visualization of the urinary bladder is unremarkable. The uterus is anteflexed and measures 9.8 x 5.0 x 6.5 cm. Endometrial thickness is 11 mm. No focal myometrial lesions are detected. Endometrium is slightly heterogeneous with more circumscribed hyperech oic area measuring 1.2 x 0.4 x 0.6 cm. No definite vascular stalk is not appreciated. The right ovary measures 2.7 x 1.9 x 1.8 cm and the left ovary measures 2.8 x 1.8 x 1.9 cm. No free fluid is identified. IMPRESSION: 1. No definite uterine fibroids are identified. 2. Slight heterogeneity of t he endometrium with suspected more circumscribed 1.2 cm hyperechoic lesion without vascular stalk. This is nonspecific, but most likely represents a small polyp. Confirmation can be performed with dedicated pelvic MRI if i ndicated. 2015-06-08 15:25:56-00:00 EXAM: US PELVIS TRANSABDOMINAL [facility] Antonio EXAM: US PELVIS TRANSVAGINAL INDICATION: Leiomyoma. COMPARISON: Pelvic ultrasound performed 0. TECHNIQUE: Multiplanar john estephania and color Doppler ultrasound images of the pelvis were obtained transabdominally through a distended urinary bladder followed by transvaginal examination postvoid. FINDINGS: Limited visualization of the urinary bladder is unremarkable. The uterus is anteflexed and measures 9.8 x 5.0 x 6.5 cm. Endometrial thickness is 11 mm. No focal myometrial lesions are detected. Endometrium is slightly heterogeneous with more circumscribed hyperech oic area measuring 1.2 x 0.4 x 0.6 cm. No definite vascular stalk is not appreciated. The right ovary measures 2.7 x 1.9 x 1.8 cm and the left ovary measures 2.8 x 1.8 x 1.9 cm. No free fluid is identified. IMPRESSION: 1. No definite uterine fibroids are identified. 2. Slight heterogeneity of t he endometrium with suspected more circumscribed 1.2 cm hyperechoic lesion without vascular stalk. This is nonspecific, but most likely represents a small polyp. Confirmation can be performed with dedicated pelvic MRI if i ndicated. 2015-06-08 15:25:56-00:00 EXAM: US PELVIS TRANSABDOMINAL [facility] Darby EXAM: US PELVIS TRANSVAGINAL INDICATION: Leiomyoma. COMPARISON: Pelvic ultrasound performed 0. TECHNIQUE: Multiplanar john estephania and color Doppler ultrasound images of the pelvis were obtained transabdominally through a distended urinary bladder followed by transvaginal examination postvoid. FINDINGS: Limited visualization of the urinary bladder is unremarkable. The uterus is anteflexed and measures 9.8 x 5.0 x 6.5 cm. Endometrial thickness is 11 mm. No focal myometrial lesions are detected. Endometrium is slightly heterogeneous with more circumscribed hyperech oic area measuring 1.2 x 0.4 x 0.6 cm. No definite vascular stalk is not appreciated. The right ovary measures 2.7 x 1.9 x 1.8 cm and the left ovary measures 2.8 x 1.8 x 1.9 cm. No free fluid is identified. IMPRESSION: 1. No definite uterine fibroids are identified. 2. Slight heterogeneity of t he endometrium with suspected more circumscribed 1.2 cm hyperechoic lesion without vascular stalk. This is nonspecific, but most likely represents a small polyp. Confirmation can be performed with dedicated pelvic MRI if i ndicated. 2015-06-08 15:25:56-00:00 EXAM: US PELVIS TRANSABDOMINAL [facility] EXAM: US PELVIS TRANSVAGINAL INDICATION: Leiomyoma. COMPARISON: Pelvic ultrasound performed 0. TECHNIQUE: Multiplanar john estephania and color Doppler ultrasound images of the pelvis were obtained transabdominally through a distended urinary bladder followed by transvaginal examination postvoid. FINDINGS: Limited visualization of the urinary bladder is unremarkable. The uterus is anteflexed and measures 9.8 x 5.0 x 6.5 cm. Endometrial thickness is 11 mm. No focal myometrial lesions are detected. Endometrium is slightly heterogeneous with more circumscribed hyperech oic area measuring 1.2 x 0.4 x 0.6 cm. No definite vascular stalk is not appreciated. The right ovary measures 2.7 x 1.9 x 1.8 cm and the left ovary measures 2.8 x 1.8 x 1.9 cm. No free fluid is identified.
[2023-02-14 17:58] LABS: Absolute Lymphocytes (CBC) 2.6 K/uL (0.7-4.9); Hematocrit 46.1 % (36.0-45.0); Lymphocytes % 31.8 % (15.3-44.8); MCV 90.7 fL (80-100); MPV 8.1 fL (7.6-11.3); RBC Red Blood Cell Count 5.08 M/uL (3.86-4.86)
[2023-02-14 18:04] LABS: Protime INR 1.06
[2023-02-14 18:16] LABS: Albumin 4.1 g/dL (3.4-5.0); Bilirubin Total 1.4 mg/dL (0.2-1.0); Potassium 3.7 mEq/L (3.5-5.1); Protein, Total 8.1 g/dL (6.4-8.2)
--- NOTE | 2023-02-14 18:20 | RAD REPORT ---
EXAM DESCRIPTION: CT - Abdomen Pelvis Wo Contrast - 02/14/2023 6:10 pm CLINICAL HISTORY: Abdominal pain /rectal bleeding COMPARISON: December 2022 TECHNIQUE: Computed axial tomography of the abdomen and pelvis was obtained. IV and oral contrast we re not requested. All CT scans are performed using dose optimization technique as appropriate and may include automated exposure control or mA/KV adjustment according to patient size. FINDINGS: The evaluation of solid organs, vessels and bowel is limited secondary to the lack of con trast administration. The liver, spleen, pancreas, adrenals and kidneys appear grossly normal. There is no evidence of diverticulitis. IUD within the uterus. No adnexal mass Cholecystectomy IMPRESSION: No acute abnormality is displayed.
--- NOTE | 2023-02-14 18:46 | ER ---
Nurse's Notes [facility] Name: Shanna Nur Age: 47 yrs Sex: Female : 1975 Arrival Date: 02/14/2023 Time: 16:13 Bed 14 Private MD: Diagnosis: GI Bleed/ Gastrointestinal hemorrhage, unspecified-Rectal bleeding;Abdominal pain, unspecified Presentation: 02/14 16:24 Chief complaint: Patient states: Bleeding from rectum since this morning. Upper ld1 abdominal pain. Coronavirus screen: At this time, the client does not indicate any symptoms associated with coronavirus-19. Ebola Screen: No symptoms or risks identified at this time. Initial Sepsis Screen: Does the patient meet any 2 criteria? No. Patient's initial sepsis screen is negative. Does the patient have a suspected source of infection? No. Patient's initial sepsis screen is negative. Risk Assessment: Do you want to hurt yourself or someone else? Patient reports no desire to harm self or others. Onset of symptoms was February 14, 2023. 16:24 Method Of Arrival: Ambulatory ld1 16:24 Acuity: JESUS 3 ld1 Triage Assessment: 16:25 General: Appears in no apparent distress. comfortable, Behavior is calm, cooperative, ld1 appropriate for age. Pain: Complains of pain in abdomen Pain does not radiate. Pain currently is 6 out of 10 on a pain scale. Quality of pain is described as throbbing. EENT: No signs and/or symptoms were reported regarding the EENT system. Neuro: Level of Consciousness is awake, alert, obeys commands, Oriented to person, place, time, situation. Cardiovascular: Capillary refill < 3 seconds Patient's skin is warm and dry. Respiratory: Airway is patent Respiratory effort is even, unlabored. GI: Abdomen is round non-distended. GI: Reports bloody stool. : No signs and/or symptoms were reported regarding the genitourinary system. Derm: No signs and/or symptoms reported regarding the dermatologic system. Musculoskeletal: No signs and/or symptoms reported regarding the musculoskeletal system. Historical: - Allergies: 16:25 Ibuprofen; ld1 16:25 Iodine (Anaphylaxis); ld1 16:25 Latex, Natural Rubber; ld1 16:25 Levaquin; ld1 16:25 Levaquin IV; ld1 16:25 Phenergan; ld1 16:25 SEAFOOD; ld1 16:25 Toradol; ld1 16:25 tramadol; ld1 16:25 Ultram; ld1 16:25 Vancomycin; ld1 - PMHx: 16:25 Atrial fibrillation; Seizure; TBI; ld1 - PSHx: 16:25 Appendectomy; Cholecystectomy; L knee SX; Adenoid excision; Tonsillectomy; tubal ld1 ligation; - Immunization history:: Adult Immunizations up to date. - Social history:: Smoking status: Patient denies any tobacco usage or history of. Patient/guardian denies using alcohol. - Family history:: not pertinent. - Hospitalizations: : No recent hospitalization is reported. Screenin:09 [facility] ED Fall Risk Assessment (Adult) History of falling in the last 3 months, ko1 including since admission No falls in past 3 months (0 pts) Confusion or Disorientation No (0 pts) Intoxicated or Sedated No (0 pts) Impaired Gait No (0 pts) Mobility Assist Device Used No (0 pt) Altered Elimination No (0 pt) Score/Fall Risk Level 0 - 2 = Low Risk Oriented to surroundings, Maintained a safe environment, Educated pt \T\ family on fall prevention, incl call for assistance when getting out of bed, Assessed \T\ reinforced patient's understanding of fall precautions, Provided non-skid footwear, Hourly rounding (assess needs \T\ fall precautionary measures) done, Used ambulatory aids as needed (educated on \T\ assisted with), Used gait belt as appropriate. Abuse screen: Denies threats or abuse. Denies injuries from another. Nutritional screening: No deficits noted. Tuberculosis screening: No symptoms or risk factors identified. Assessment: 18:09 General: Appears in no apparent distress. uncomfortable, Behavior is calm, cooperative, ko1 appropriate for age. Pain: Complains of pain in left lower quadrant and right lower quadrant and abdomen. Neuro: No deficits noted. Cardiovascular: No deficits noted. Respiratory: No deficits noted. GI: Reports rectal bleeding. : No deficits noted. EENT: No deficits noted. Derm: No deficits noted. Musculoskeletal: No deficits noted. Vital Signs: 16:24 BP 142 / 88; Pulse 82; Resp 18; Temp 98(O); Pulse Ox 100% on R/A; Weight 68.04 kg; ld1 Height 5 ft. 3 in. ; Pain 7/10; 18:47 BP 140 / 95; Pulse 75; Resp 16; Pulse Ox 99% ; ko1 20:33 BP 128 / 80; Pulse 72; Resp 16; Pulse Ox 98% on R/A; ll3 16:24 Body Mass Index 26.57 (68.04 kg, 160.02 cm) ld1 16:24 Pain Scale: Adult ld1 ED Course: 16:14 Patient arrived in ED. rg4 16:18 Leo Diop MD is Attending Physician. rn 16:25 Triage completed. ld1 16:25 Arm band placed on right wrist. ld1 16:30 Radiology exam delayed due to lab results not completed at this time. (BUN/Creatinine) jg10 IV insertion attempt and/or patient not having appropriate IV at this time. 17:42 CBC with Diff Sent. ld1 17:42 CMP Sent. ld1 17:42 Lipase Sent. ld1 17:42 Ptt, Activated Sent. ld1 17:42 Protime (+inr) Sent. ld1 18:00 Lavern Lopez, RN is Primary Nurse. ko1 18:09 Patient has correct armband on for positive identification. Bed in low position. Call ko1 light in reach. Pulse ox on. NIBP on. Door closed. Noise minimized. Warm blanket given. 18:12 CT Abd/Pelvis - Without Contrast In Process Unspecified. EDMS 18:44 Carmine Armando MD is Hospitalizing Provider. rn 19:28 Primary Nurse role handed off by Lavern Lopez, RN rv1 19:35 Inserted saline lock: 22 gauge in right antecubital area, using aseptic technique. kd3 20:34 No provider procedures requiring assistance completed. Patient admitted, IV remains in ll3 place. Administered Medications: 20:03 Drug: morphine IVP or IV 2 mg Route: IVP; Infused Over: 4 mins; Site: right antecubital;ll3 21:00 Follow up: Response: No adverse reaction ll3 20:03 Drug: Ondansetron IVP 4 mg Route: IVP; Site: right antecubital; ll3 21:00 Follow up: Response: No adverse reaction ll3 Medication: 20:34 VIS not applicable for this client. ll3 Outcome: 18:45 Decision to Hospitalize by Provider. rn 21:00 Admitted to Tele accompanied by tech, via wheelchair, room 405, with chart, Report ll3 called to AUDI Oh 21:00 Condition: stable 21:00 Instructed on the need for admit, Demonstrated understanding of instructions. 21:01 Patient left the ED. ll3 Signatures: Dispatcher [employer] EDMS Leo Diop MD MD rn Garcia, Rubi rg4 Ashia Boles RN RN ld1 Carolynn Solorzano RN RN ll3 Leslee Keith RN RN kd3 Lavern Lopez RN RN koDayna Walkerfair[facility] Atiya Benedict 1
--- NOTE | 2023-02-14 18:46 | EDPHYS ---
Physician Documentation [facility] Name: Shanna Nur Age: 47 yrs Sex: Female : 1975 Arrival Date: 02/14/2023 Time: 16:13 Bed 14 Private MD: ED Physician Leo Diop HPI: 02/14 16:35 This 47 yrs old Female presents to ER via Ambulatory with complaints of Rectal Bleeding.rn 16:35 The patient presents to the emergency department with rectal bleeding, a small amount, rn bright red blood with bowel movement, with multiple such episodes. 16:36 Abdominal pain: described as achy, crampy, located in the right lower quadrant and left rn lower quadrant. Modifying factors: The symptoms are alleviated by nothing, the symptoms are aggravated by nothing. Severity of symptoms: At their worst the symptoms were moderate in the emergency department the symptoms are unchanged. The patient has experienced similar episodes in the past. Pt reports lower abd pain, began left lower abd, now spread to RLQ, assoc with rectal bleeding, red blood, small amount, has had rectal bleeding in past, usually resolves on its own, has never required intervention or surgery. No fever. No vomiting. . Historical: - Allergies: 16:25 Ibuprofen; ld1 16:25 Iodine (Anaphylaxis); ld1 16:25 Latex, Natural Rubber; ld1 16:25 Levaquin; ld1 16:25 Levaquin IV; ld1 16:25 Phenergan; ld1 16:25 SEAFOOD; ld1 16:25 Toradol; ld1 16:25 tramadol; ld1 16:25 Ultram; ld1 16:25 Vancomycin; ld1 - PMHx: 16:25 Atrial fibrillation; Seizure; TBI; ld1 - PSHx: 16:25 Appendectomy; Cholecystectomy; L knee SX; Adenoid excision; Tonsillectomy; tubal ld1 ligation; - Immunization history:: Adult Immunizations up to date. - Social history:: Smoking status: Patient denies any tobacco usage or history of. Patient/guardian denies using alcohol. - Family history:: not pertinent. - Hospitalizations: : No recent hospitalization is reported. ROS: 16:36 Constitutional: Negative for fever, chills, and weight loss, Cardiovascular: Negative rn for chest pain, palpitations, and edema, Respiratory: Negative for shortness of breath, cough, wheezing, and pleuritic chest pain, Abdomen/GI: + abd pain and rectal bleeding MS/Extremity: Negative for injury and deformity, Skin: Negative for injury, rash, and discoloration, Neuro: Negative for headache, numbness, tingling, and seizure. Exam: 16:36 Constitutional: This is a well developed, well nourished patient who is awake, alert, rn and in no acute distress. Eyes: Normal conjunctivae Cardiovascular: Regular rate and rhythm. No pulse deficits. Respiratory: No increased work of breathing, no retractions or nasal flaring. Abdomen/GI: Soft, mild LLQ and RLQ tenderness Skin: Warm, dry MS/ Extremity: Pulses equal, no cyanosis. Neuro: Awake and alert, GCS 15 Vital Signs: 16:24 BP 142 / 88; Pulse 82; Resp 18; Temp 98(O); Pulse Ox 100% on R/A; Weight 68.04 kg; ld1 Height 5 ft. 3 in. ; Pain 7/10; 18:47 BP 140 / 95; Pulse 75; Resp 16; Pulse Ox 99% ; ko1 20:33 BP 128 / 80; Pulse 72; Resp 16; Pulse Ox 98% on R/A; ll3 16:24 Body Mass Index 26.57 (68.04 kg, 160.02 cm) ld1 16:24 Pain Scale: Adult ld1 MDM: 16:18 Patient medically screened. rn 18:42 Differential diagnosis: diverticulitis, colitis, internal hemorrhoids, diverticulosis. rn Data reviewed: vital signs, nurses notes, lab test result(s), radiologic studies, CT scan, and as a result, I will admit patient. Consideration of Admission/Observation Patient was admitted/placed on observation. Escalation of care including admission/observation considered. Counseling: I had a detailed discussion with the patient and/or guardian regarding: the historical points, exam findings, and any diagnostic results supporting the discharge/admit diagnosis, lab results, radiology results, the need for further work-up and treatment in the hospital. Response to treatment: There is no appreciated change of the patient's symptoms at this time. ED course: Pt continues to have bloody bowel movements, last BM with less blood, normal H/H, but still uncomfortable, abd pain, and now day 3 of rectal bleeding, will obs in hospital, have GI coverage, serial H/H and will cover with abx given diffuse pain and bleeding could indicate early colitis. . 02/14 16:29 Order name: CBC with Diff; Complete Time: 18:04 rn 02/14 16:29 Order name: CMP; Complete Time: 18:20 rn 02/14 16:29 Order name: Lipase; Complete Time: 18:20 rn 02/14 16:29 Order name: Protime (+inr); Complete Time: 18:20 rn 02/14 16:29 Order name: Ptt, Activated; Complete Time: 18:20 rn 02/14 17:44 Order name: CT Abd/Pelvis - Without Contrast; Complete Time: 18:21 rn 02/14 16:29 Order name: IV Saline Lock; Complete Time: 20:03 rn 02/14 16:29 Order name: Labs collected and sent; Complete Time: 17:42 rn Administered Medications: 20:03 Drug: morphine IVP or IV 2 mg Route: IVP; Infused Over: 4 mins; Site: right antecubital;ll3 21:00 Follow up: Response: No adverse reaction ll3 20:03 Drug: Ondansetron IVP 4 mg Route: IVP; Site: right antecubital; ll3 21:00 Follow up: Response: No adverse reaction ll3 Disposition Summary: 02/14/23 18:45 Hospitalization Ordered Hospitalization Status: Observation rn Provider: Carmine Armando rn Location: Telemetry/MedSurg (observation) rn Condition: Stable rn Problem: new rn Symptoms: are unchanged rn Bed/Room Type: Standard rn Room Assignment: 405(02/14/23 19:48) cg Diagnosis - GI Bleed/ Gastrointestinal hemorrhage, unspecified - Rectal bleeding rn - Abdominal pain, unspecified rn Forms: - Medication Reconciliation Form rn - SBAR form rn Signatures: Dispatcher [employer] EDMS Leo Diop MD MD rn Bin Saucedo, LOOM MECHANIC-C LOOM MECHANIC-Leah Gross RN RN Ashia Bragg RN RN ld1 Carolynn Solorzano RN RN ll3 Corrections: (The following items were deleted from the chart) 17:48 16:29 Abdomen Pelvis W Con+CT.RAD.BRZ ordered. EDSC EDMS 19:48 18:45 rn cg
[2023-02-14] MEDS ORDERED: ONDANSETRON 4 MG/2 ML VIAL ONE (20:05)
[2023-02-14] MEDS ORDERED: MORPHINE 2 MG/ML SYR ONE (20:05)
[2023-02-14] MEDS ORDERED: MORPHINE 2 MG/ML SYR IV PRN (20:05)
--- NOTE | 2023-02-14 20:09 | P.HP ---
Certification for Inpatient Patient admitted to: Observation With expected LOS: <2 Midnights Patient will require the following post-hospital care: None Practitioner: I am a practitioner with admitting privileges, knowledge of patient current condition, hospital course, and medical plan of care. Services: Services provided to patient in accordance with Admission requirements found in Title 42 Section 412.3 of the Code of Federal Regulations Patient History Date of Service: 02/14/23 History of Present Illness: 47-year-old female with history of seizure disorder, TBI, diverticulitis, paroxysmal atrial fibrillation presents to the emergency department chief complaint of lower abdominal pain, bright red blood per rectum. She reports that she has been having lower abdominal pain, diarrhea and bright red blood in her stool and on the toilet when she wipes for the past 3 days. She reports similar episodes in the past which all resolved spontaneously without the need for further investigation/surgery. She has never had a colonoscopy before. She does report previously being told that she had diverticulitis. She was evaluated in the emergency department her initial hemoglobin is 15.5 hematocrit 46.[address] of the abdomen pelvis was performed without IV contrast which was negative for acute findings. She persistently has lower abdominal pain and has had additional bloody bowel movements in the ED. ED provider wishes to admit under observation for abdominal tenderness, hematochezia. Allergies iodine Allergy (Verified 12/23/21 22:40) Anaphylaxis Latex, Natural Rubber Allergy (Verified 12/23/21 22:40) Hives/Rash promethazine [From Phenergan] Allergy (Verified 12/23/21 22:40) Hives tramadol Allergy (Verified 12/23/21 22:40) Nausea/Vomiting Home Medications: Bumetanide [Bumex] 1 mg PO DAILY #30 tablet 02/11/22 Lacosamide [Vimpat] 200 mg PO BID #60 02/11/22 Levetiracetam [Keppra] 750 mg PO BID #60 02/11/22 Lisinopril [Zestril] 20 mg PO DAILY #30 02/11/22 clonazePAM [Klonopin] 0.5 mg PO TID PRN 02/11/22 Metoprolol Succinate 50 mg PO BID 30 Days #60 tab.er.24h 02/12/22 Pantoprazole Sodium [Protonix] 40 mg PO DAILY #30 tablet.dr 02/12/22 - Past Medical/Surgical History Diabetic: No -: seizures -: HTN -: Paroxysmal atrial fibrillation -: Diverticulitis -: Appy -: Tubal -: L knee -: Tonsils and adenoids Psychosocial/ Personal History: 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 - Family History Mother -: Cancer - Social History Alcohol use: No CD- Drugs: No Caffeine use: Yes Place of Residence: Home Review of Systems 10-point ROS is otherwise unremarkable Gastrointestinal: Nausea, Abdominal Pain, Diarrhea, Hematochezia Physical Examination - Physical Exam General: Alert, In no apparent distress, Oriented x3 HEENT: Atraumatic, PERRLA, Mucous membr. moist/pink, EOMI, Sclerae nonicteric Neck: Supple, 2+ carotid pulse no bruit, No LAD, Without JVD or thyroid abnormality Respiratory: Clear to auscultation bilaterally, Normal air movement Cardiovascular: No edema, Regular rate/rhythm, Normal S1 S2 Capillary refill: <2 Seconds Gastrointestinal: Tenderness (Mild lower abdominal tenderness) Musculoskeletal: No tenderness Integumentary: No rashes Neurological: Normal gait, Normal speech, Normal strength at 5/5 x4 extr, Normal tone, Normal affect Lymphatics: No axilla or inguinal lymphadenopathy Rectal: Normal, Other (No obvious external hemorrhoids) - Studies Laboratory Data (last 24 hrs) 02/14/23 17:41: PT 11.7, INR 1.06, APTT 25.9 02/14/23 17:41: Sodium 140, Potassium 3.7, BUN 9, Creatinine 0.87, Glucose 101, Total Bilirubin 1.4 H, AST 20, ALT 48, Alkaline Phosphatase 95, Lipase 39 02/14/23 17:41: WBC 8.20, Hgb 15.5 H, Hct 46.1 H, Plt Count 460 H Assessment and Plan - Plan Assessment: Lower abdominal pain/tenderness, hematochezia Seizure disorder Paroxysmal atrial fibrillation Plan: Lower abdominal pain/tenderness, hematochezia CT negative for acute findings, will repeat hemoglobin this evening, she does have a history of diverticulitis and has had multiple similar episodes in the past, given her pain there is some concern for possible diverticulitis or colitis we will continue IV antibiotics at this time Rocephin/Flagyl, as needed pain medications. GI consultation. N.p.o. for midnight in case there is need for further investigation. Seizure disorder Continue on medications, patient takes Vimpat and Keppra, she has been instructed to attempt to obtain her Vimpat from home as we do not have this and she reportedly cannot take the Keppra by itself. She reports near daily seizures with myoclonic jerking of her head and right arm, occasionally has grand mal seizures as well. Paroxysmal atrial fibrillation Rarely ever has episodes of atrial fibrillation, when she does she takes an aspirin daily. She has not been taking any blood thinners or aspirin lately. DVT PPX: SCD Code status: Full Discharge Plan: Home Plan to discharge in: 24 Hours - Advance Directives Does patient have a Living Will: No Does patient have a Durable POA for Healthcare: No - Code Status/Comfort Care Code Status Assessed: Yes (Full code) Critical Care: No Time Spent Managing Pts Care (In Minutes): 55
[2023-02-14] MEDS ORDERED: MORPHINE 2 MG/ML SYR IV ONE (21:46)
[2023-02-14] MEDS ORDERED: methocarbamoL 750 MG TAB PO PRN (22:03)
[2023-02-14] MEDS ORDERED: levETIRAcetam 500 MG TAB PO SCH (22:15)
[2023-02-14] MEDS ORDERED: LACOSAMIDE 50 MG TABLET PO SCH (22:15)
[2023-02-14] MEDS: LACOSAMIDE 50 MG TABLET PO SCH (22:25)
[2023-02-14] MEDS: levETIRAcetam 500 MG TAB PO SCH (22:25)
[2023-02-14 23:06] VITALS: BMI 27.5
[2023-02-15] MEDS: ONDANSETRON 4 MG/2 ML VIAL IV PRN ×2 (01:04→07:14)
[2023-02-15] MEDS: METRONIDAZOLE 500mg IVPB 500 MG/100 ML BAG IV SCH ×2 (01:05→08:47)
[2023-02-15] MEDS: MORPHINE 2 MG/ML SYR IV PRN ×3 (01:47→11:58)
[2023-02-15] MEDS ORDERED: NA CHLORIDE 0.9% 1,000 ML IV SCH (03:00)
[2023-02-15 03:54] LABS: Specific Gravity 1.009 (1.005-1.030); Urine Bacteria None Seen /HPF (<20); Urine Bilirubin NEGATIVE (Negative); Urine Blood 1+ (Negative); Urine Clarity Clear (Clear); Urine Color Colorless (Yellow); Urine Glucose NEGATIVE (Negative); Urine Mucus Slight /HPF (None Seen); Urine Protein NEGATIVE (Negative); Urine RBC <5 /HPF (None Seen); Urine Urobilinogen Normal (Normal)
[2023-02-15] MEDS ORDERED: ACETAMINOPHEN 325 MG TABLET PO PRN (04:42)
[2023-02-15 05:09] LABS: Absolute Lymphocytes (CBC) 3.8 K/uL (0.7-4.9); Lymphocytes % 43.7 % (15.3-44.8); MCV 91.4 fL (80-100); MPV 8.1 fL (7.6-11.3); RBC Red Blood Cell Count 4.59 M/uL (3.86-4.86)
[2023-02-15 05:24] LABS: Potassium 3.8 mEq/L (3.5-5.1)
--- NOTE | 2023-02-15 07:28 | P.PN ---
Date of Service: 02/15/23 Subjective: combination of poop/blood in BM per patient, episodes this week worse than previous episodes; last BM was in the ER with blood Lower abdominal discomfort continues ~unchanged chronic intermittent constipation over the last few years no acute events overnight ROS: 10 point ROS as noted above, otherwise negative Physical Exam: GEN: Alert, oriented, NAD HEENT: Normal conjunctiva, sclera anicteric CV: Regular rate and rhythm, no edema Pulm: Nonlabored respirations on room air ABD: Soft, Mild lower abdominal tenderness, nondistended MSK: No joint tenderness Integumentary: No rashes Neuro: Normal speech, normal affect vitals reviewed Problem List: Lower abdominal pain/tenderness Hematochezia hx of diverticulitis Seizure disorder Paroxysmal atrial fibrillation Vonstipation Lower abdominal pain/tenderness hematochezia hx of diverticulitis Patient has a hx of diverticulitis and has had multiple similar episodes in the past, given her pain there is concern for possible diverticulitis or colitis reports this happens multiple times a year for a few years; has never had a colonoscopy before CT abdomen (02/14): negative for acute findings continue IV Rocephin and Flagyl (02/15-) monitor H&H. transfuse if hgb < 7 PRN pain medication GI consult NPO Seizure disorder Continue home medications, patient takes Vimpat and Keppra, she has been i nstructed to attempt to obtain her Vimpat from home as we do not have this and she reportedly cannot take the Keppra by itself. She reports near daily seizures with myoclonic jerking of her head and right arm, occasionally has grand mal seizures as well. Paroxysmal atrial fibrillation Rarely ever has episodes of atrial fibrillation, when she does she takes an aspirin daily. She has not been taking any blood thinners or aspirin lately. VTE: SCD Code: Full Dispo: Home ~1 day
[2023-02-15] MEDS: LACOSAMIDE 50 MG TABLET PO SCH (08:48)
[2023-02-15] MEDS: levETIRAcetam 500 MG TAB PO SCH (08:48)
[2023-02-15] MEDS ORDERED: lisinopriL 20 MG TAB PO SCH (09:00)
[2023-02-15] MEDS ORDERED: CEFTRIAXONE 1,000 MG in NA CHLORIDE 0.9% 50 ML IVPB SCH (09:00)
[2023-02-15] MEDS ORDERED: METOPROLOL XL 50 MG TAB PO SCH (09:00)
[2023-02-15 09:28] VITALS: O2SAT 97
[2023-02-15 09:29] LABS: Hematocrit 43.6 % (36.0-45.0)
[2023-02-15] MEDS ORDERED: POTASSIUM CL SA 10 MEQ TAB PO ONE (12:00)
[2023-02-15 12:17] VITALS: BP 103/57; TEMP 98.7
--- NOTE | 2023-02-15 14:22 | P.DS ---
Admission Date: 02/14/23 Discharge Date: 02/15/23 Disposition: ROUTINE DISCHARGE Discharge Condition: FAIR Consultations: GI - Dr. Farr Brief History of Present Illness: 47 yo F, PMH: seizure disorder, TBI, diverticulitis, paroxysmal atrial fibrillation Patient presents to the emergency department chief complaint of lower abdominal pain, bright red blood per rectum. She reports that she has been having lower abdominal pain, diarrhea and bright red blood in her stool and on the toilet when she wipes for the past 3 days. She reports similar episodes in the past which all resolved spontaneously without the need for further investigation/surgery. She has never had a colonoscopy before. She does report previously being told that she had diverticulitis. She was evaluated in the emergency department her initial hemoglobin is 15.5 hematocrit 46.[address] of the abdomen pelvis was performed without IV contrast which was negative for acute findings. She persistently has lower abdominal pain and has had additional bloody bowel movements in the ED. Hospital Course: Problem List: Lower abdominal pain/tenderness secondary to possible diverticulitis vs Irritable Bowel Syndrome Hematochezia h/o diverticulitis Seizure disorder Paroxysmal atrial fibrillation Constipation Patient presented with lower abdominal pain, bright red blood per rectum. CT abdomen was negative for any acute abnormalities. Hemoglobin was stable at 14.1 on discharge. No obvious bleeds were noted. Her bleeding was most likely due to hemorrhoidal bleed vs mild diverticular bleed. Patient has a hx of IBS. She has had multiple self-resolving episodes similar but not as severe over the last several years. Given her pain, there was concern for possible diverticulitis or colitis, so she was given empiric IV Rocephin and Flagyl. Hemoglobin remained stable. GI was consulted and Dr. Farr recommended that the patient follow up with in the office, with plans to get an outpatient colonoscopy in the next few weeks. She was afebrile and without leukocytosis. Dr. Farr recommended continuing antibiotic on discharge. Continue home medications as previously prescribed New / change in prescriptions 10 days of ciprofloxacin / flagyl Follow up: PCP 3-5 days GI within 2-4 weeks Physical Exam: GEN: Alert, oriented, NAD HEENT: Normal conjunctiva, sclera anicteric CV: Regular rate and rhythm, no edema Pulm: Nonlabored respirations on room air ABD: Soft, Mild lower abdominal tenderness, nondistended Neuro: Normal speech, normal affect Vital Signs/Physical Exam: Temp Pulse Resp BP Pulse Ox 98.7 F 77 16 103/57 L 97 02/15/23 12:00 02/15/23 12:00 02/15/23 12:28 02/15/23 12:00 02/15/23 12:28 Laboratory Data at Discharge: WBC 8.70 thou/uL (4.3-10.9) 02/15/23 04:23 Hgb 14.1 g/dL (12.0-15.0) 02/15/23 09:11 Hct 43.6 % (36.0-45.0) 02/15/23 09:11 Plt Count 377 thou/uL (152-406) 02/15/23 04:23 PT 11.7 SECONDS (9.5-12.5) 02/14/23 17:41 INR 1.06 02/14/23 17:41 APTT 25.9 SECONDS (24.3-36.9) 02/14/23 17:41 Sodium 139 mEq/L (136-145) 02/15/23 04:23 Potassium 3.8 mEq/L (3.5-5.1) 02/15/23 04:23 BUN 6 mg/dL (7-18) L 02/15/23 04:23 Creatinine 0.74 mg/dL (0.55-1.02) 02/15/23 04:23 Glucose 118 mg/dL (74-106) H 02/15/23 04:23 Total Bilirubin 1.4 mg/dL (0.2-1.0) H 02/14/23 17:41 AST 20 U/L (15-37) 02/14/23 17:41 ALT 48 U/L (13-56) 02/14/23 17:41 Alkaline Phosphatase 95 U/L (45-117) 02/14/23 17:41 Lipase 39 U/L (13-75) 02/14/23 17:41 Home Medications: Lacosamide [Vimpat] 200 mg PO BID #60 02/11/22 Lisinopril [Zestril] 20 mg PO DAILY #30 02/11/22 Metoprolol Succinate 50 mg PO BID 30 Days #60 tab.er.24h 07/03/22 Aspirin [Ecotrin] 325 mg PO DAILYPRN PRN 02/14/23 Hydrocodone/Acetaminophen [Hydrocodone-Acetamin 10-325 mg] 1 each PO Q6HP PRN 02/14/23 Levetiracetam [Keppra] 1,000 mg PO BID 02/14/23 methocarbamoL [Robaxin*] 750 mg PO DAILYPRN PRN 02/14/23 Ciprofloxacin HCl [Cipro 500 MG Tablet] 500 mg PO BID 10 Days #20 tab 02/15/23 metroNIDAZOLE [Metronidazole] 500 mg PO Q8H 10 Days #30 tab 02/15/23 New Medications: Ciprofloxacin HCl [Cipro 500 MG Tablet] 500 mg PO BID 10 Days #20 tab metroNIDAZOLE [Metronidazole] 500 mg PO Q8H 10 Days #30 tab Physician Discharge Instructions: Patient presented with lower abdominal pain, bright red blood per rectum. CT abdomen was negative for any acute abnormalities. Hemoglobin was stable at 14.1 on discharge. No obvious bleeds were noted. Her bl eeding was most likely due to hemorrhoidal bleed vs mild diverticular bleed. Patient has a hx of IBS. She has had multiple self-resolving episodes similar but not as severe over the last several years. Given her pain, there was concern for possible diverticulitis or colitis, so she was given empiric IV Rocephin and Flagyl. Hemoglobin remained stable. GI was consulted and Dr. Farr recommended that the patient follow up with in the office, with plans to get an outpatient colonoscopy in the next few weeks. She was afebrile and without leukocytosis. Dr. Farr recommended continuing antibiotic on discharge. Continue home medications as previously prescribed New / change in prescriptions 10 days of ciprofloxacin / flagyl Follow up: PCP 3-5 days GI within 2-4 weeks Followup: Danny Farr MD [ACTIVE - CAN ADMIT] - 1-2 Weeks (Call for appointment) Time spent managing pt's care (in minutes): 45
[2023-02-15] MEDS ORDERED: levETIRAcetam 500 MG TAB PO SCH (22:08)
[2023-02-15] MEDS ORDERED: LACOSAMIDE 50 MG TABLET PO SCH (22:10)
== END 2023-02-15 15:40 | disposition home or self-care (01) ==
LOC: ER 16:13 → ERHOLD 19:17 → 4TH 19:57
PROVIDERS: ADMIT Hospitalist; ATTEND Hospitalist
DX: R10.30 Lower abdominal pain, unspecified (principal); K92.1 Melena; K59.00 Constipation, unspecified; G40.909 Epilepsy, unspecified, not intractable, without status epilepticus; I48.0 Paroxysmal atrial fibrillation
CPT/HCPCS: 36415; 74176; 80048; 80053; 81001; 83690; 85014; 85018; 85025; 85610; 85730; 96374; 96375; 99285; G0378; J0696; J2270; J2405; J7030

== ENCOUNTER 2023-04-25 19:46 | Observation (INO) | payer OTHER, SELFPAY ==
[2023-04-25 20:45] LABS: Specific Gravity 1.006 (1.005-1.030); Urine Bilirubin NEGATIVE (Negative); Urine Blood Negative (Negative); Urine Clarity Clear (Clear); Urine Color Colorless (Yellow); Urine Glucose NEGATIVE (Negative); Urine Protein NEGATIVE (Negative); Urine Urobilinogen Normal (Normal); Urine pH 5.5 (5.0-7.0)
[2023-04-25] MEDS ORDERED: NA CHLORIDE 0.9% 1,000 ML ONE (20:50)
--- OUTSIDE RECORDS SUMMARY | 2023-04-25 20:56 | XMS REPORT | Continuity of Care Document ---
:1975 Author Organization [facility] t Address [address] [place] [address] Care Team Providers Name Role Phone NEW THOM Primary Care Physician [phone] LEANDRO OLIVARES Attending Clinician Unavailable FABRICIO ORTIZ Attending Clinician Unavailable Fabricio Conteh Attending Clinician MIHIR LUNA Attending Clinician Unavailable Mihir Luna MD Attending Clinician SIMRAN CONTEH Attending Clinician Unavailable Simran Conteh MD Attending Clinician Doctor Unassigned, [place] [facility] Attending Clinician Unavailable Halima Vargas MD Attending [...] Clinician Unavailable Bladimir Brumfield MD Attending Clinician [phone] Obdulio Ragland MD Attending Clinician MD OBDULIO RAGLAND Attending Clinician Unavailable Inez García MD Attending Clinician [phone] JUDE MATHEWS M.D. Attending Clinician Unavailable Woo Greenberg DO Attending Clinician [phone] [place] MD Attending Clinician Clarice Brannon MD Attending Clinician Lj Thakkar Attending Clinician MD LJ THAKKAR Attending Clinician Unavailable Jose Elias Torres MD Attending Clinician Lydia Oden MD Attending Clinician [phone] Maribel Dickey MD Attending Clinician MD [...] Number Effective Date Expiration Date S maurice [facility] [id number] 2020 STAR 00:00:00 [facility] STAR [id number] 2022 00:00:00 [facility] REVIEW [id number] 2020 00:00:00 Problems Condition Condition Condition Status [...] WKS PG 00:00: Jordy n Active 09/03/2014 [facility] CONSTIPATI CONSTIPAT Diagnosis Active 2014-12-14 Memoria ON, NAUSEA ION, - 09:23:00 l NAUSEA 00:00: Antonio Active 08/24/2014 [facility] History of History of Problem Resolve [...] rs active active ity of problems problems [facility] Anemia Anemia Problem Resolve 2016-02-16 Mem oria (disorder) (disorder) d 00:25:42 l Resolved Antonio Problem 02/16/2016 [facility] Migraine Migraine Problem Resolve 2016-02-16 Memoria (disorder) (disorder) d 00:25:42 l Resolved Antonio Problem 02/16/2016 [facility] Mitral Mitral Problem Resolve 2016-02-16 Me moria valve valve d 00:25:42 l prolapse prolapse Jordy n (disorder) (disorder) Resolved Problem 02/16/2016 [facility] Anxiety Anxiety Problem Active 2016-02-16 Me juliannaa (finding) (finding) 00:25:42 l Active Antonio Problem 02/16/2016 [facility] Bipolar Bipolar Problem Active 2016-02-16 Me moria (qualifier (qualifier 00:25:42 l value) value) Antonio Active Problem 02/16/2016 [facility] Congestive Congestiv Problem Active 2016-02-16 Memoria heart e heart 00:25:42 l failure failure Marion (disorder) (disorder) Active Problem 02/16/2016 [facility] Depressive Depressiv Problem Active 2016-02-16 Memoria disorder e disorder 00:25:42 l (disorder) (disorder) He rmann Active Problem 02/16/2016 [facility] Gastroesop Gastroeso Problem Active 2016-02-16 Memoria hageal phageal 00:25:42 l reflux reflux Marion disease disease (disorder) (disorder) Active Problem 02/16/2016 [facility] Heart Heart Problem Active 2016-02-16 Bhavesh mario [...] (disorder) He rmann Active Problem 02/16/2016 [facility] Osteoarthr Osteoarth Problem Active 2016-02-16 Memoria itis ritis 00:25:42 l (disorder) (disorder) He rmann Active Problem 02/16/2016 [facility] Drug Drug Problem Active 2016-02-16 Memor ia overdose overdose 00:25:42 l (disorder) (disorder) He rmann Active Problem 02/16/2016 [facility] Rheumatoid Rheumatoi Problem Active 2016-02-16 Memoria arthritis d 00:25:42 l (disorder) arthritis Her sarkar (disorder) Active Problem 02/16/[address] 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 Uterine Uterine Problem Active 2016-02-16 Me moria leiomyoma leiomyoma 00:25:42 l (disorder) (disorder) He rmann Active Problem 02/16/[address] [facility] Urinary Urinary Problem Active 2016-02-16 Me moria tract tract 00:25:42 l infectious infectious He rmalem disease disease (disorder) (disorder) Active Problem 02/16/[address] 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 History of Past Illness Condition Condition Condition Status Onset Resolution Last Treating Co mments Source Name Details Category Date Date Treatment Clinician Date Discharge Discharge Problem 2016-02-16 2016-02-16 Memoria Diagnosis: Diagnosis: 02-12 00:25:42 00:25:42 l Anemia, Anemia, 05:00: Marion unspecifie unspecifie 00 d d 02/13/2016 6 [facility] Discharge Discharge Problem 2016-02-16 2016-02-16 Memoria Diagnosis: Diagnosis: 02-12 00:25:42 00:25:42 l Abnormal Abnormal 05:00: Jordy n uterine uterine 00 and and vaginal vaginal bleeding, bleeding, unspecifie unspecifie d d 02/13/2016 02/16/2016 [facility] Discharge Discharge Problem 2014-09-06 2014-09-06 Memoria Diagnosis: Diagnosis: 09-04 16:01:45 16:01:45 l Vaginal Vaginal 06:00: Marion bleeding bleeding 00 09/04/2014 09/06/2014 [facility] Discharge Problem 2014-09-06 2014-09-06 Memoria Diagnosis: Discharge 09-04 16:01:45 16:01:45 l Dysmenorrh Diagnosis: 06:00: Dru soares ea Dysmenorrh 00 ea 09/04/2014 09/06/2014 [facility] Discharge Problem 2014-2014-08-26 2014-08-26 Memoria Diagnosis: Discharge 08-24 17:22:44 17:22:44 l Nausea Diagnosis: 06:00: Jordy n Nausea 00 08/24/2014 08/26/2014 [facility] Discharge Discharge Problem 2014-08-26 2014-08-26 Memoria Diagnosis: Diagnosis: 08-24 17:22:44 17:22:44 l Constipati Constipati 06:00: He rmann on on 08/24/2014 08/26/2014 [facility] Allergies, Adverse Reactions, Alerts Allergy Allergy [...] Univers IN INGREDI 08-14 ity of 00:00: [place] 00 [facility] Povidone Allergy Active [facility] Iodine to [...] Anaphylaxis 2017-0 Met hodi And ty to 3-09 st Iodide adverse 00:00: Hospita Containi reaction 00 l ng s to Products drug TRAMADOL Allergy Active 2016- [facility] 2-13 00:00: 00 VANCOMYC Allergy Active 2016- [facility] IN 2-13 ANALOGUE 00:00: S 00 [...] Allergy Active 2013-08 [facility] 0-03 00:00: 00 Levoflox Propensi Active Anaphylaxis 2013-08 Tongue M ethodi acin ty to 0-[address] adverse 00:00: Hospita reaction 00 l s to drug Prometha Propensi Active Hives 2013-08 Method i zine ty to 0-03 st adverse 00:00: Hospita reaction 00 l s to drug LEVOFLOX Allergy Active 2013-08 [facility] ACIN 0-03 [...] Active Memori a d d 8-09 l [employer] radiocon 00:00: Jordy roberto trast trast 00 dyes dyes Levaquin Levaquin Active Memori a 8-09 l 00:00: Antonio 00 Phenerga Phenerga Active 2002-0 Memori a n n 8-09 l 00:00: Marion 00 Betadine Allergy Active [facility] to [...] l Antonio Latex Latex Active Memoria l [place] morphine morphine Active Memori a l [place] vancomyc vancomyc Active Memori a in in l [place] Elavil Elavil Active Memoria l [place] STEROIDS Allergy Active [facility] Family History Family Member Diagnosis Comments Start Date Stop Date Source Family member No history of Methodis t cancer [facility] Maternal aunt Melanoma [facility] Maternal aunt Cancer [facility] Maternal uncle Leukemia [facility] Maternal grandfather Stroke [facility] Natural mother Diabetes [facility] Natural sister Stroke [facility] Social History Social Habit Start Date Stop Date Quantity Comments Source Gender identity 2020-05-06 Identifies as Method ist 15:03:15 female gender [facility] (finding) Sexual orientation 2020-05-06 Heterosexual Meth odist 15:03:15 (finding) Hospital History SDOH [facility] Frequency Hospita l History SDOH [facility] Std Drinks Hospit al History SDOH [facility] Exposure to 2022-12-01 2022-12-11 Not sure University of SARS-CoV-2 (event) 00:00:00 20:24:00 [facility] History of Social 2021-06-29 2021-06-[address] function 00:00:00 00:00:00 Hospital Alcohol intake 2021-05-05 2021-05-05 Current non-drinker [facility] 00:00:00 00:00:00 of [facility] (finding) Tobacco use and 2021-04-25 2021-04-25 Smokeless tobacco [facility] exposure 00:00:00 00:00:00 non-user Alcohol Comment 2018-08-02 2018-08-[address] 00:00:00 00:00:00 Hospital Sex Assigned At [birth year] LANA Cruz 00:00:00 00:00:00 [facility] Smoking Status Start Date Stop Date Source Tobacco smoking consumption [facility] unknown Branch Social History [facility] Medications Ordered Filled Start Stop Current Ordering [...] 12/11/22 Branch at 2345, Routine ondansetron Yes [id number] 4mg Take 1 Univers (ZOFRAN) 4 5-02 tablet by ity of mg tablet 00:00: mouth [place] 00 every 8 Medical (eight) Branch hours as needed for Nausea and Vomiting (N/V). dicyclomine 0 Yes [id number] 20mg Take 1 Univers 20 mg 5-02 [...] Indication s: acute pain ondansetron 2022-0 Yes [id number] 4mg Take 1 Univers (ZOFRAN) 4 5-02 tablet by ity of mg tablet 00:00: mouth [place] 00 every 8 Medical (eight) Branch hours as needed for Nausea and Vomiting (N/V). dicyclomine 2022-0 Yes [id number] 20mg Take 1 Univers 20 mg 5-02 [...] t;Duration of Therapy: 7 days cefpodoxime 2022- No [id number] 100mg Take 1 Univers 100 mg 11-27 tablet by ity of tablet 00:00: 04:59 mouth in [place] 00 :00 the Medical morning Branch and 1 tablet in the evening. Do all this for 7 days. ketorolac No 30mg 30 mg, Unive rs (TORADOL) [...] 15 Minutes, 100 mL levETIRAcet 2022-0 Yes [id number] 1000mg Take 1 Univers am (KEPPRA) 1-02 tablet by ity of 1,000 mg 00:00: mouth in [place] tablet 00 the Medical morning Branch and 1 tablet in the evening. Lacosamide 2022-0 Yes [id number] 200mg Take 1 Univers (VIMPAT) 1-02 tablet by ity of 200 mg 00:00: mouth in [place] tablet 00 the Medical morning Branch and 1 tablet in the evening. ALPRAZolam 2022-0 Yes [id number] .25mg Take 1 Univers (XANAX) 1-02 tablet by ity of 0.25 mg 00:00: mouth in [place] tablet 00 the Medical morning Branch and 1 tablet at noon and 1 tablet in the evening. levETIRAcet 2022-0 Yes [id number] 1000mg Take 1 Univers am (KEPPRA) 1-02 tablet by ity of 1,000 mg 00:00: mouth in [place] tablet 00 the Medical morning Branch and 1 tablet in the evening. Lacosamide 2022-0 Yes [id number] 200mg Take 1 Univers (VIMPAT) 1-02 tablet by ity of 200 mg 00:00: mouth in [place] tablet 00 the Medical morning Branch and 1 tablet in the evening. ALPRAZolam 2022-0 Yes [id number] .25mg Take 1 Univers (XANAX) 1-02 tablet by ity of 0.25 mg 00:00: mouth in [place] tablet 00 the Medical morning Branch and 1 tablet at noon and 1 tablet in the evening. levETIRAcet 3-0 Yes [id number] 1000mg Take 1 Univers am (KEPPRA) 1-02 tablet by ity of 1,000 mg 00:00: mouth in [place] tablet 00 the Medical morning Branch and 1 tablet in the evening. Lacosamide 3-0 Yes [id number] 200mg Take 1 Univers (VIMPAT) 1-02 tablet by ity of 200 mg 00:00: mouth in [place] tablet 00 the Medical morning Branch and 1 tablet in the evening. ALPRAZolam 3-0 Yes [id number] .25mg Take 1 Univers (XANAX) 1-02 tablet by ity of 0.25 mg 00:00: mouth in [place] tablet 00 the Medical morning Branch and 1 tablet at noon and 1 tablet in the evening. levETIRAcet 3-0 Yes [id number] 1000mg Take 1 Univers am (KEPPRA) 1-02 tablet by ity of 1,000 mg 00:00: mouth in [place] tablet 00 the Medical morning Branch and 1 tablet in the evening. Lacosamide 3-0 Yes [id number] 200mg Take 1 Univers (VIMPAT) 1-02 tablet by ity of 200 mg 00:00: mouth in [place] tablet 00 the Medical morning Branch and 1 tablet in the evening. ALPRAZolam 3-0 Yes [id number] .25mg Take 1 Univers (XANAX) 1-02 tablet by ity of 0.25 mg 00:00: mouth in [place] tablet 00 the Medical morning Branch and 1 tablet at noon and 1 tablet in the evening. levETIRAcet 3-0 Yes [id number] 1000mg Take 1 Univers am (KEPPRA) 1-02 tablet by ity of 1,000 mg 00:00: mouth in [place] tablet 00 the Medical morning Branch and 1 tablet in the evening. Lacosamide 3-0 Yes [id number] 200mg Take 1 Univers (VIMPAT) 1-02 tablet by ity of 200 mg 00:00: mouth in [place] tablet 00 the Medical morning Branch and 1 tablet in the evening. ALPRAZolam 3-0 Yes [id number] .25mg Take 1 Univers (XANAX) 1-02 tablet by ity of 0.25 mg 00:00: mouth in [place] tablet 00 the Medical morning Branch and 1 tablet at noon and 1 tablet in the evening. acetaminoph 2020-08- No [id number] 1{tbl} Q6H Take 1 Methodi en-codeine 08-29-[address] (TYLENOL 00:00: 05:59 mouth Hospita WITH 00 :00 every 6 l CODEINE #3) (six) 300-30 mg hours as per tablet needed for moderate pain for up to 5 days .acute pain. acetaminoph 2020-08- No [id number] 1{tbl} Q6H Take 1 Methodi en-codeine 08-29- [...] He alth 12:13: s 10 bumetanide Yes [id number] 2mg QD Take 1 U T (Bumex) 2 9-13 tablet (2 Healt h MG tablet 00:00: mg total) 00 by mouth 1 (one) time each day. lisinopril Yes [id number] 2.5mg QD Take 1 UT 2.5 MG 9-13 tablet Health tablet 00:00: (2.5 mg 00 total) by mouth 1 (one) time each day. metoprolol Yes [id number] 50mg Q.5D Take 1 U T succinate [...] 50 MG 24 hr tablet lisinopril Yes [id number] 2.5mg QD Take 1 UT 2.5 MG - tablet Health tablet 00:00: (2.5 mg 00 total) by mouth 1 (one) time each day. metoprolol Yes [id number] 50mg Q.5D Take 1 U T succinate - tablet (50 Heal th XL 00:00: mg total) (Toprol-XL) 00 by mouth 2 50 MG 24 hr (two) tablet times a day. lisinopril 2020- No [id number] 2.5mg QD Take 1 UT 2.5 MG -04-25 tablet Health tablet 00:00: 00:00 (2.5 mg 00 :00 total) by mouth 1 (one) time each day. metoprolol 2020- No [id number] 50mg Q.5D Take 1 UT succinate -04-25 [...] Hospita capsule 59 l busPIRone Yes 15mg Q.99093785 Take 15 mg Methodi (BUSPAR) 10 4-26 [id number] by mouth [address] MG tablet 16:32: [...] capsule 59 l busPIRone 0 Yes 15mg Q.[id number] Take 15 mg Methodi (BUSPAR) 10 -26 [id number] [address] mouth [address] MG tablet 11:32: [...] capsule 59 l busPIRone 0 Yes 15mg Q.81432800 Take 15 mg [facility] (BUSPAR) 10 4-26 [id number] by mouth 3 [address] MG tablet 11:32: [...] capsule 59 l busPIRone 2020-0 Yes 15mg Q.[id number] Take 15 mg [facility]i (BUSPAR) 10 4-26 [id number] by mouth 3 [address] MG tablet 11:32: [...] capsule 59 l busPIRone 0 Yes 15mg Q.49050432 Take 15 mg [facility]i (BUSPAR) 10 4-26 [id number] by mouth 3 [address] MG tablet 11:32: [...] capsule 59 l busPIRone 0 Yes 15mg Q.62542354 Take 15 mg [facility] (BUSPAR) 10 4-26 [id number] by mouth [address] MG tablet 11:32: [...] Hospita capsule 59 l busPIRone Yes 15mg Q.96006045 Take 15 mg [facility]i (BUSPAR) 10 -26 [id number] by mouth [address] MG tablet 11:32: [...] capsule 59 l busPIRone 0 Yes 15mg Q.07688149 Take 15 mg [facility] (BUSPAR) 10 -26 [id number] by mouth [address] MG tablet 11:32: [...] Hospita capsule 59 l busPIRone Yes 15mg Q.49741039 Take 15 mg [facility]i (BUSPAR) 10 -26 [id number] by mouth 3 [address] MG tablet 11:32: [...] Hospita capsule 59 l busPIRone Yes 15mg Q.84735087 Take 15 mg [facility]i (BUSPAR) 10 4-26 [id number] by mouth 3 [address] MG tablet 11:32: [...] capsule 59 l busPIRone 2020-0 Yes 15mg Q.[id number] Take 15 mg Methodi (BUSPAR) 10 4-26 [id number] by mouth 3 [address] MG tablet 11:32: [...] Hospita capsule 59 l busPIRone Yes 15mg Q.18741966 Take 15 mg [facility] (BUSPAR) 10 12-06 [id number] by mouth [address] MG tablet 11:32: [...] 2020- No .5mg QD Take 1 Meth ketyt (Xanax) 0.5 09-11-[address] MG tablet [...] times a l day. Extended Release HYDROcodone 2020- No Q.5D Take by Me thodi -acetaminop 05-[address] hen (NORCO) 17:49: 00:00 (two) Hosp arcenio 5-325 mg 43 :00 times a l per tablet day. diazePAM 2019- No 10mg Q.13096464 Take 10 mg [facility]i (VALIUM) 5 05-08 [id number] by mouth 3 [address] MG tablet 17:49: [...] to 30 days. lactulose 2019- No 20g Q.[id number] Take 30 mL Methodi 20 gram/30 05-08 [id number] (20 g s t mL solution 00:00: 04:59 3D total) by Hospita 00 :00 mouth 3 l (three) times a day as needed (CONSTIPAT ION) for up to 30 days. meclizine 2019- No 25mg Q.[id number] Take 1 [facility]i (ANTIVERT) 05-08 [id number] tablet (25 st 25 mg 00:00: 04:59 3D mg total) Hospit a tablet 00 :00 by mouth 3 l (three) times a day as needed for dizziness for up to 30 days. pregabalin 2019- 2020- No 50mg Q.[id number] Take 2 [facility] (LYRICA) 25 -07 06-[id number] MG capsule 00:00: 04:59 3D (50 mg Hosp arcenio 00 :00 total) by l mouth 3 (three) times a day for 30 days. lisinopriL 2020-0 2020- No 2.5mg QD Take 1 Met [...] hours as COMPOUNDED) needed. solution WITH albuterol 2019-2020- No 2.5mg Take 0.5 CH [...] BY ans 00 MOUTH EVERY DAY ferrous 2015-0 Yes 325 mg = 1 [...] Memoria 02-12 Route: l 09:11: IVP, Drug Marion 00 form: INJ, ONCE, Dosing Weight 68.182, [...] Memoria 02-12 Route: l 09:11: IVP, Drug Marion 00 form: INJ, ONCE, Dosing Weight 68.182, [...] 7-03 Rate: l 0.9% IV 09:11: 1,000 Marion 1000 mL 00 ml/hr, Infuse over: 1 hr, Route: IV, Dosing Weight 68.182 kg, Total Volume: 1,000, Start date: 02/13/16 4:11:00 CDT, Duration: 1 doses or times, Stop date: 02/13/16 5:10:00 CDT, Bolus Dose Reglan 2016-0 No 10 mg, Memoria 7-03 Route: l 09:11: IVP, Drug [place] 00 form: INJ, ONCE, Dosing Weight 68.182, [...] Memoria 7- Route: l 09:11: IVP, Drug Marion 00 form: INJ, ONCE, Dosing Weight 68.182, [...] 7-03 Rate: l 0.9% IV 09:11: 1,000 Marion 1000 mL 00 ml/hr, Infuse over: 1 hr, Route: IV, Dosing Weight 68.182 kg, Total Volume: 1,000, Start date: 02/13/16 4:11:00 CDT, Duration: 1 doses or times, Stop date: 02/13/16 5:10:00 CDT, Bolus Dose Reglan 2016-0 No 10 mg, Memoria 7-03 Route: l 09:11: IVP, Drug Marion 00 form: INJ, ONCE, Dosing Weight 68.182, [...] 7- Rate: l 0.9% IV 09:11: 1,000 Marion 1000 mL 00 ml/hr, Infuse over: 1 hr, Route: IV, Dosing Weight 68.182 kg, Total Volume: 1,000, Start date: 02/13/16 4:11:00 CDT, Duration: 1 doses or times, Stop date: 02/13/16 5:10:00 CDT, Bolus Dose Reglan 2016-0 No 10 mg, Memoria 7-03 Route: l 09:11: IVP, Drug [place] 00 form: INJ, ONCE, Dosing Weight 68.182, kg, Priority: STAT, Start date: 02/13/16 4:11:00 CDT, Stop date: 02/13/16 4:11:00 CDT Sodium 2016-0 No 1,000 mL, Memori a Chloride 7-03 Rate: l 0.9% IV 09:11: 1,000 Marion 1000 mL 00 ml/hr, Infuse over: 1 [...] Memoria 7-03 Route: l 09:11: IVP, Drug [place] 00 form: INJ, ONCE, Dosing Weight 68.182, kg, Priority: STAT, Start date: 02/13/16 4:11:00 CDT, Stop date: 02/13/16 4:11:00 CDT Sodium 2016-0 No 1,000 mL, Memori a Chloride 7-03 Rate: l 0.9% IV 09:11: 1,000 Marion 1000 mL 00 ml/hr, Infuse over: 1 hr, Route: IV, Dosing Weight 68.182 kg, Total Volume: 1,000, Start date: 02/13/16 4:11:00 CDT, Duration: 1 doses or times, Stop date: 02/13/16 5:10:00 CDT, Bolus Dose Reglan 2016-0 No 10 mg, Memoria 7-03 Route: l 09:11: IVP, Drug [place] 00 form: INJ, ONCE, Dosing Weight 68.182, kg, Priority: STAT, Start date: 02/13/16 4:11:00 CDT, Stop date: 02/13/16 4:11:00 CDT Sodium 2016-0 No 1,000 mL, Memori a Chloride 7-03 Rate: l 0.9% IV 09:11: 1,000 Marion 1000 mL 00 ml/hr, Infuse over: 1 [...] 02-12 Route: PO, l 08:17: Drug form: Marion 00 TAB, ONCE, Dosing Weight 68.182, kg, [...] 02-12 Route: PO, l 08:17: Drug form: Marion 00 TAB, ONCE, Dosing Weight 68.182, kg, [...] 02-12 Route: PO, l 08:17: Drug form: Marion 00 TAB, ONCE, Dosing Weight 68.182, kg, Priority: STAT, Start date: 02/13/16 3:17:00 CDT, Stop date: 02/13/16 3:17:00 CDT Acetaminoph 2016-0 No 650 mg, Mem oria en 02-12 Route: PO, l 08:17: Drug form: [place] 00 TAB, ONCE, Dosing Weight 68.182, kg, Priority: STAT, Start date: 02/13/16 3:17:00 CDT, Stop date: 02/13/16 3:17:00 CDT Acetaminoph 2016-0 No 650 mg, Mem oria en 7-03 Route: PO, l 08:17: Drug form: [place] 00 TAB, ONCE, Dosing Weight 68.182, kg, Priority: STAT, Start date: 02/13/16 3:17:00 CDT, Stop date: 02/13/16 3:17:00 CDT Acetaminoph 2015-0 No 650 mg, Mem oria en 02-12 Route: PO, l 08:17: Drug form: [place] 00 TAB, ONCE, Dosing Weight 68.182, kg, [...] 02-12 Route: PO, l 08:17: Drug form: [place] 00 TAB, ONCE, Dosing Weight 68.182, kg, Priority: STAT, Start date: 02/13/16 3:17:00 CDT, Stop date: 02/13/16 3:17:00 CDT Acetaminoph 2015-0 No 650 mg, Mem oria en 02-12 Route: PO, l 08:17: Drug form: [place] 00 TAB, ONCE, Dosing Weight 68.182, kg, [...] Memoria 7- Route: l 06:19: IVP, Drug [place] 00 form: INJ, ONCE, Dosing Weight 68.182, kg, Priority: STAT, Start date: 02/13/16 1:19:00 CDT, Stop date: 02/13/16 1:19:00 CDT Zofran 2016-0 No 4 mg, Memoria 7- Route: l 06:19: IVP, Drug [place] 00 form: INJ, ONCE, Dosing Weight 68.182, [...] Memoria 7- Route: l 06:19: IVP, Drug [place] 00 form: INJ, ONCE, Dosing Weight 68.182, kg, Priority: STAT, Start date: 02/13/16 1:19:00 CDT, Stop date: 02/13/16 1:19:00 CDT Zofran 2016-0 No 4 mg, Memoria 7-03 Route: l 06:19: IVP, Drug [place] 00 form: INJ, ONCE, Dosing Weight 68.182, [...] Memoria 7- Route: l 06:19: IVP, Drug [place] 00 form: INJ, ONCE, Dosing Weight 68.182, kg, Priority: STAT, Start date: 02/13/16 1:19:00 CDT, Stop date: 02/13/16 1:19:00 CDT Zofran 2016-0 No 4 mg, Memoria 7- Route: l 06:19: IVP, Drug [place] 00 form: INJ, ONCE, Dosing Weight 68.182, [...] Memoria 7-03 Route: l 06:19: IVP, Drug [place] 00 form: INJ, ONCE, Dosing Weight 68.182, [...] 0.9% 7-03 (Same as: l 06:07: BD [place] 00 Posiflush) Saline No Notes: Memoria Flush 0.9% 7-03 (Same as: l 06:07: BD [place] 00 Posiflush) Saline No Notes: Memoria Flush 0.9% 7-03 (Same as: l 06:07: BD Antonio 00 Posiflush) Saline No Notes: Memoria Flush 0.9% 7-03 (Same as: l 06:07: BD Antonio 00 Posiflush) Saline No Notes: Memoria Flush 0.9% 7-03 (Same as: l 06:07: BD [place] 00 Posiflush) Saline No Notes: Memoria Flush 0.9% 7-03 (Same as: l 06:07: BD Antonio 00 Posiflush) Saline No Notes: Memoria Flush 0.9% 7-03 (Same as: l 06:07: BD [place] 00 Posiflush) Saline No Notes: Memoria Flush 0.9% 7-03 (Same as: l 06:07: BD Antonio 00 Posiflush) Saline No Notes: Memoria Flush 0.9% 7-03 (Same as: l 06:07: BD [place] 00 Posiflush) Saline No Notes: Memoria Flush 0.9% 7-03 (Same as: l 06:07: BD [place] 00 Posiflush) Saline No Notes: Memoria Flush 0.9% 7-03 (Same as: l 06:07: BD [place] 00 Posiflush) Saline No Notes: Memoria Flush [...] 1-23 Instructio l Tablet 08:52: ns: Take Marion [Motrin] 00 with food Ibuprofen Yes Special [...] Take Antonio [Motrin] 00 with food Ibuprofen 2014-0 Yes Special Memor ia 800 MG Oral 1-23 Instructio l Tablet 08:52: ns: Take Marion [Motrin] 00 with food Ibuprofen 2014-0 Yes Special Memor ia 800 MG Oral 1-23 Instructio l Tablet 08:52: ns: Take [place] [Motrin] 00 with food Ibuprofen 2014-0 Yes Special Memor ia 800 MG Oral 1-23 Instructio l Tablet 08:52: ns: Take Antonio [Motrin] 00 with food Ibuprofen 2014-0 Yes Special Memor ia 800 MG Oral 1-23 Instructio l Tablet 08:52: ns: Take Antonio [Motrin] 00 with food Ibuprofen 2014- Yes Special Memor ia 800 MG Oral 1-23 Instructio l Tablet 08:52: ns: Take Antonio [Motrin] 00 with food Ibuprofen 2014-0 Yes Special Memor ia 800 MG Oral 1-23 Instructio l Tablet 08:52: ns: Take [place] [Motrin] 00 with food Ibuprofen 2014- Yes Special Memor ia 800 MG Oral 1-23 Instructio l Tablet 08:52: ns: Take Antonio [Motrin] 00 with food Ibuprofen 2014-0 Yes Special Memor ia 800 MG Oral 1-23 Instructio l Tablet 08:52: ns: Take [place] [Motrin] 00 with food Ibuprofen 2014-0 Yes Special Memor ia 800 MG Oral 1-23 Instructio l Tablet 08:52: ns: Take Antonio [Motrin] 00 with food Ketorolac No 4 days Memor ia 1-23 l 08:49: Antonio Ketorolac 2014-0 No 4 days Memor ia 1-23 l 08:49: Antonio Ketorolac 2014-0 No 4 days Memor ia 1-23 l 08:49: Marion Ketorolac 2014-0 No 4 days Memor ia 1-23 l 08:49: Marion Ketorolac 2014-0 No 4 days Memor ia 1-23 l 08:49: Antonio Ketorolac 2014-0 No 4 days Memor ia 1-23 l 08:49: Antonio Ketorolac 2014- No 4 days Memor ia 1-23 l 08:49: Antonio Ketorolac No 4 days Memor ia 1-23 l 08:49: Marion Ketorolac No 4 days Memor ia 1-23 l 08:49: Antonio Ketorolac No 4 days Memor ia 1-23 l 08:49: Natonio Ketorolac No 4 days [facility] 1-23 l 08:49: Antonio Ketorolac No 4 days Mem[facility] 1-23 l 08:49: Antonio Ketorolac No 4 days [facility] ia 1-23 l 08:49: Antonio Ketorolac No 4 days Mem[facility] 1-23 l 08:49: Marion Ketorolac No 4 days Mem[facility] ia 1-23 l 08:49: Antonio 00 Ketorolac No 4 days [facility] ia 1-23 l 08:49: Marion 00 gabapentin Yes 600 mg = 1 [...] PO, l Oral Tablet 21:41: Bedtime, # Marion [Lipitor] 00 30 tab, 0 Refill(s) metoprolol [...] PO, l Oral Tablet 21:41: Bedtime, # Marion [Lipitor] 00 30 tab, 0 Refill(s) metoprolol [...] PO, l Oral Tablet 21:41: Bedtime, # Marion [Lipitor] 00 30 tab, 0 Refill(s) metoprolol [...] PO, l Oral Tablet 21:41: Bedtime, # Marion [Lipitor] 00 30 tab, 0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 malignant [facility] 15:00:57 neoplasm of cervix Hospital (procedure) [code = 626417520] Future Scheduled 2022-11-17 BREAST CANCER SCREENING [facility] 15:00:57 [code = BREAST CANCER Hospit al SCREENING] Future Scheduled 2022-11-17 [facility]OSCOPY [facility]ING [facility] 15:00:57 [code = COLONOSCOPY Hospital SCREENING] Future Scheduled 2022-11-17 INFLUENZA VACCINE [code = [facility] 15:00:57 INFLUENZA VACCINE] Hospital Future Scheduled 2022-08-[address] [facility] 00:00:00 (12+) [code = DEPRESSION Med ical Center SCREENING (12+)] Future Scheduled 2022-08-[address] [facility] 00:00:00 (12+) [code = DEPRESSION Med ical Center SCREENING (12+)] Future Scheduled 2022-08-[address] [facility] 00:00:00 (12+) [code = DEPRESSION Med ical Center SCREENING (12+)] Future Scheduled 2022-08-[address] [facility] 00:00:00 (12+) [code = DEPRESSION Med ical Center SCREENING (12+)] Future Scheduled 2022-08-[address] [facility] 00:00:00 (12+) [code = DEPRESSION Med ical Center SCREENING (12+)] Future Scheduled 2022-08-[address] [facility] 00:00:00 (12+) [code = DEPRESSION Med ical Center SCREENING (12+)] Future Scheduled 2022-08-[address] [facility] 00:00:00 (12+) [code = DEPRESSION Med ical Center SCREENING (12+)] Future Scheduled 2022-08-[address] [facility] 00:00:00 (12+) [code = DEPRESSION Med ical Center SCREENING (12+)] Future Scheduled 2022-08-[address] [facility] 00:00:00 (12+) [code = DEPRESSION Med ical Center SCREENING (12+)] Future Scheduled 2022-07-28 COVID-19 VACCINE (#1) [facility] 06:02:12 [code = COVID-19 VACCINE [facility] pital (#1)] Future Scheduled 2022-07-28 [facility] C screening [facility] 06:02:12 (procedure) [code = Hospital [id number]] Future Scheduled 2022-07-28 Screening for malignant [facility] 06:02:12 neoplasm of cervix Hospital (procedure) [code = 048887763] Future Scheduled 2022-07-28 BREAST CANCER SCREENING [facility] 06:02:12 [code = BREAST CANCER Hospit al SCREENING] Future Scheduled 2022-07-28 [facility]OSCOPY [facility]ING [facility] 06:02:12 [code = COLONOSCOPY Hospital SCREENING] Future Scheduled 2022-07-28 INFLUENZA VACCINE [code = [facility] 06:02:12 INFLUENZA VACCINE] Hospital Future Scheduled 2022-07-28 COVID-19 VACCINE (#1) [facility] 06:02:12 [code = COVID-19 VACCINE [facility]ital (#1)] Future Scheduled 2022-07-28 [facility] C screening [facility] 06:02:12 (procedure) [code = Hospital [id number]] Future Scheduled 2022-07-28 Screening for malignant [facility] 06:02:12 neoplasm of cervix Hospital (procedure) [code = 324709605] Future Scheduled 2022-07-28 BREAST CANCER SCREENING [facility] 06:02:12 [code = BREAST CANCER Hospit al SCREENING] Future Scheduled 2022-07-28 [facility]OSCOPY [facility]ING [facility] 06:02:12 [code = COLONOSCOPY Hospital SCREENING] Future Scheduled 2022-07-28 INFLUENZA VACCINE [code = [facility] 06:02:12 INFLUENZA VACCINE] Hospital Future Scheduled 2022-07-28 COVID-19 VACCINE (#1) [facility] 06:02:12 [code = COVID-19 VACCINE [facility] pital (#1)] Future Scheduled 2022-07-28 [facility] C screening [facility] 06:02:12 (procedure) [code = Hospital [id number]] Future Scheduled 2022-07-28 Screening for malignant [facility] 06:02:12 neoplasm of cervix Hospital (procedure) [code = 759620696] Future Scheduled 2022-07-28 BREAST CANCER SCREENING [facility] 06:02:12 [code = BREAST CANCER Hospit al SCREENING] Future Scheduled 2022-07-28 [facility]OSCOPY [facility]ING [facility] 06:02:12 [code = COLONOSCOPY Hospital SCREENING] Future Scheduled 2022-07-28 INFLUENZA VACCINE [code = [facility] 06:02:12 INFLUENZA VACCINE] Hospital Future Scheduled 2022-07-28 COVID-19 VACCINE (#1) [facility] 06:02:12 [code = COVID-19 VACCINE Hos pital (#1)] Future Scheduled 2022-07-28 [facility] C screening [facility] 06:02:12 (procedure) [code = Hospital [id number]] Future Scheduled 2022-07-28 Screening for malignant [facility] 06:02:12 neoplasm of cervix Hospital (procedure) [code = 397659000] Future Scheduled 2022-07-28 BREAST CANCER SCREENING [facility] 06:02:12 [code = BREAST CANCER Hospit al SCREENING] Future Scheduled 2022-07-28 [facility]OSCOPY [facility]ING [facility] 06:02:12 [code = COLONOSCOPY Hospital SCREENING] Future Scheduled 2022-07-28 INFLUENZA VACCINE [code = [facility] 06:02:12 INFLUENZA VACCINE] Hospital Future Scheduled 2022-07-28 COVID-19 VACCINE (#1) [facility] 06:02:12 [code = COVID-19 VACCINE [facility] pital (#1)] Future Scheduled 2022-07-28 [facility] C screening [facility] 06:02:12 (procedure) [code = Hospital [id number]] Future Scheduled 2022-07-28 Screening for malignant [facility] 06:02:12 neoplasm of cervix [facility] (procedure) [code = 743940905] Future Scheduled 2022-07-28 BREAST CANCER SCREENING [facility] 06:02:12 [code = BREAST CANCER Hospit al SCREENING] Future Scheduled 2022-07-28 [facility]OSCOPY [facility]ING [facility] 06:02:12 [code = COLONOSCOPY Hospital SCREENING] Future Scheduled 2022-07-28 INFLUENZA VACCINE [code = [facility] 06:02:12 INFLUENZA VACCINE] Hospital Future Scheduled 2022-05-[address] [facility] 00:00:00 Counseling and Screening Med ical Center (12+) [code = Tobacco Cessation Counseling and Screening (12+)] Future Scheduled 2022-05-[address] [facility] 00:00:00 Counseling and Screening Med ical Center (12+) [code = Tobacco Cessation Counseling and Screening (12+)] Future Scheduled 2022-05-[address] [facility] 00:00:00 Counseling and Screening Med ical Center (12+) [code = Tobacco Cessation Counseling and Screening (12+)] Future Scheduled 2022-05-[address] [facility] 00:00:00 Counseling and Screening Med ical Center (12+) [code = Tobacco Cessation Counseling and Screening (12+)] Future Scheduled 2022-05-[address] [facility] 00:00:00 Counseling and Screening Med ical Center (12+) [code = Tobacco Cessation Counseling and Screening (12+)] Future Scheduled 2022-05-[address] [facility] 00:00:00 Counseling and Screening Med ical Center (12+) [code = Tobacco Cessation Counseling and Screening (12+)] Future Scheduled 2022-05-[address] [facility] 00:00:00 Counseling and Screening Med ical Center (12+) [code = Tobacco Cessation Counseling and Screening (12+)] Future Scheduled 2022-05-[address] [facility] 00:00:00 Counseling and Screening Med ical Center (12+) [code = Tobacco Cessation Counseling and Screening (12+)] Future Scheduled 2022-05-[address] [facility] 00:00:00 Counseling and Screening Med ical Center (12+) [code = Tobacco Cessation Counseling and Screening (12+)] Future Scheduled 2022-04-13 INFLUENZA VACCINE (#1) [facility] 00:00:00 [code = INFLUENZA VACCINE Me dical Center (#1)] Future Scheduled 2022-04-13 INFLUENZA VACCINE (#1) [facility] 00:00:00 [code = INFLUENZA VACCINE Me dical Center (#1)] Future Scheduled 2022-04-13 INFLUENZA VACCINE (#1) [facility] 00:00:00 [code = INFLUENZA VACCINE Me dical Center (#1)] Future Scheduled 2022-04-13 INFLUENZA VACCINE (#1) [facility] 00:00:00 [code = INFLUENZA VACCINE Me dical Center (#1)] Future Scheduled 2022-04-13 INFLUENZA VACCINE (#1) [facility] 00:00:00 [code = INFLUENZA VACCINE Me dical Center (#1)] Future Scheduled 2021-06-29 COVID-19 VACCINE (1) [facility] 11:[facility]01 [code = COVID-19 VACCINE Hos pital (1)] Future Scheduled 2021-06-29 [facility] C screening [facility] 11:36:01 (procedure) [code = Hospital [id number]] Future Scheduled 2021-06-29 Screening for malignant [facility] 11:36:01 neoplasm of cervix Hospital (procedure) [code = 857351024] Future Scheduled 2021-06-29 INFLUENZA VACCINE [code = [facility] 11:36:01 INFLUENZA VACCINE] Hospital Future Scheduled 2021-06-29 COVID-19 VACCINE (1) [facility] 11:36:01 [code = COVID-19 VACCINE Hos pital (1)] Future Scheduled 2021-06-29 [facility] C screening [facility] 11:36:01 (procedure) [code = Hospital 474907586] Future Scheduled 2021-06-29 Screening for malignant [facility] 11:36:01 neoplasm of cervix Hospital (procedure) [code = 504866204] Future Scheduled 2021-06-29 INFLUENZA VACCINE [code = [facility] 11:36:01 INFLUENZA VACCINE] Hospital Future Scheduled 2021-04-13 INFLUENZA VACCINE (#1) [facility] 00:00:00 [code = INFLUENZA VACCINE Me dical Center (#1)] Future Scheduled 2021-04-13 INFLUENZA VACCINE (#1) [facility] 00:00:00 [code = INFLUENZA VACCINE Me dical Center (#1)] Future Scheduled 2020-08-[address] [facility] 00:00:00 (12+) [code = DEPRESSION Med ical Center SCREENING (12+)] Future Scheduled 2020-08-[address] [facility] 00:00:00 (12+) [code = DEPRESSION Med ical Center SCREENING (12+)] Future Scheduled 2020-04-13 INFLUENZA VACCINE (#1) [facility] 00:00:00 [code = INFLUENZA VACCINE Me dical Center (#1)] Future Scheduled 1994 Screening for malignant [facility] 00:00:00 neoplasm of cervix Medical C enter (procedure) [code = 267808139] Future Scheduled 1994 Screening for malignant [facility] 00:00:00 neoplasm of cervix Medical C enter (procedure) [code = 675418887] Future Scheduled 1994 Screening for malignant [facility] 00:00:00 neoplasm of cervix Medical C enter (procedure) [code = 682087690] Future Scheduled 1994 Screening for malignant [facility] 00:00:00 neoplasm of cervix Medical C enter (procedure) [code = 489602559] Future Scheduled 1994 Screening for malignant [facility] 00:00:00 neoplasm of cervix Medical C enter (procedure) [code = 719375251] Future Scheduled 1994 Screening for malignant [facility] 00:00:00 neoplasm of cervix Medical C enter (procedure) [code = 316335559] Future Scheduled 1994 Screening for malignant [facility] 00:00:00 neoplasm of cervix Medical C enter (procedure) [code = 170158003] Future Scheduled 1994 Screening for malignant [facility] 00:00:00 neoplasm of cervix Medical C enter (procedure) [code = 603433772] Future Scheduled 1994 Screening for malignant [facility] 00:00:00 neoplasm of cervix Medical C enter (procedure) [code = 169577094] Future Scheduled 1994 Screening for malignant [facility] 00:00:00 neoplasm of cervix Medical C enter (procedure) [code = 394602678] Future Scheduled 1994 Screening for malignant [facility] 00:00:00 neoplasm of cervix Medical C enter (procedure) [code = 048550559] Future Scheduled 1994 Screening for malignant [facility] 00:00:00 neoplasm of cervix Medical C enter (procedure) [code = 925725870] Future Scheduled 1991 HEPATITIS C SCREENING CH [...] HEPATITIS C Medical Center SCREENING] Future Scheduled [address] [facility] 00:00:00 virus screening [facility] (procedure) [code = 317811643] Future Scheduled 1985 COVID-19 VACCINE (1) [facility] 00:00:00 [code = COVID-19 VACCINE Med ical Center (1)] Future Scheduled 1985 COVID-19 VACCINE (1) [facility] 00:00:00 [code = COVID-19 VACCINE Med ical Center (1)] Future Scheduled 1974-03-27 COVID-19 VACCINE (#1[facility]00 [code = COVID-19 VACCINE Med ical Center (#1)] Future Scheduled 1974-03-27 COVID-19 VACCINE (#1[facility]:00:00 [code = COVID-19 VACCINE Med ical Center (#1)] Future Scheduled 1974-03-27 COVID-19 VACCINE (#1) [facility] 00:00:00 [code = COVID-19 VACCINE Med ical Center (#1)] Future Scheduled 1974-03-27 COVID-19 VACCINE (#1[facility]:00:00 [code = COVID-19 VACCINE Med ical Center (#1)] Future Scheduled 1974-03-27 COVID-19 VACCINE (#1[facility]:00:00 [code = COVID-19 VACCINE Med ical Center (#1)] Future Scheduled 1974-03-27 COVID-19 VACCINE (#1[facility]:00:00 [code = COVID-19 VACCINE Med ical Center (#1)] Future Scheduled 1974-03-27 COVID-19 VACCINE (#1[facility]:00:00 [code = COVID-19 VACCINE Med ical Center (#1)] Future Scheduled 1974-03-27 COVID-19 VACCINE (#1[facility] 00:00:00 [code = COVID-19 VACCINE Med ical Center (#1)] Future Scheduled 1974-03-27 COVID-19 VACCINE (#1[facility]00 [code = COVID-19 VACCINE Med ical Center (#1)] Future Scheduled 1973 CT Colonography (combo) [facility] 00:00:00 [code = CT Colonography [facility] (com[facility])] Future Scheduled [address] Screening for malignant [facility] 00:00:00 neoplasm of colon Medical Ce nter (procedure) [code = 813209505] Future Scheduled 1973 Screening for malignant [facility] 00:00:00 neoplasm of colon Medical Ce nter (procedure) [code = 675964792] Future Scheduled 1973 Screening for malignant [facility] 00:00:00 neoplasm of colon Medical Ce nter (procedure) [code = 705999968] Future Scheduled 1973 Screening for malignant [facility] 00:00:00 neoplasm of colon Medical Ce nter (procedure) [code = 052190831] Future Scheduled 1973 Sigmoidoscopy [code = [facility]] Medical Cente r Future Scheduled 1973 CT Colonography (combo) [facility] 00:00:00 [code = CT Colonography [facility] ([facility])] Future Scheduled 1973 Screening for malignant [facility] 00:00:00 neoplasm of colon Medical Ce nter (procedure) [code = 602046862] Future Scheduled 1973 Screening for malignant [facility] 00:00:00 neoplasm of colon Medical Ce nter (procedure) [code = 799155137] Future Scheduled 1973 Screening for malignant [facility] 00:00:00 neoplasm of colon Medical Ce nter (procedure) [code = 824157716] Future Scheduled [address] Screening for malignant [facility] 00:00:00 neoplasm of colon Medical Ce nter (procedure) [code = 194629328] Future Scheduled 1973 Sigmoidoscopy [code = [facility] S[facility]oscopy] Medical Cente r Future Scheduled 1973 CT Colonography (combo) [facility] 00:00:00 [code = CT Colonography [facility] (com[facility])] Future Scheduled 1973 Screening for malignant [facility] 00:00:00 neoplasm of colon Medical Ce nter (procedure) [code = 826056797] Future Scheduled 1973 Screening for malignant [facility] 00:00:00 neoplasm of colon Medical Ce nter (procedure) [code = 116824116] Future Scheduled 1973 Screening for malignant [facility] 00:00:00 neoplasm of colon Medical Ce nter (procedure) [code = 452082108] Future Scheduled 1973 Screening for malignant [facility] 00:00:00 neoplasm of colon Medical Ce nter (procedure) [code = 487978644] Future Scheduled 1973 Sigmoidoscopy [code = [facility] S[facility]oscopy] Medical Cente r Future Scheduled 1973 CT Colonography (combo) [facility] 00:00:00 [code = CT Colonography [facility] (combo)] Future Scheduled 1973 Screening for malignant [facility] 00:00:00 neoplasm of colon Medical Ce nter (procedure) [code = 717002104] Future Scheduled 1973 Screening for malignant [facility] 00:00:00 neoplasm of colon Medical Ce nter (procedure) [code = 796803597] Future Scheduled 1973 Screening for malignant [facility] 00:00:00 neoplasm of colon Medical Ce nter (procedure) [code = 731926964] Future Scheduled 1973 Screening for malignant [facility] 00:00:00 neoplasm of colon Medical Ce nter (procedure) [code = 606525967] Future Scheduled 1973 Sigmoidoscopy [facility]code = [facility] S[facility]oscopy] Medical Cente r Future Scheduled 1973 CT Colonography (combo) [facility] 00:00:00 [code = CT Colonography [facility] (combo)] Future Scheduled 1973 Screening for malignant [facility] 00:00:00 neoplasm of colon Medical Ce nter (procedure) [code = 488694214] Future Scheduled 1973 Screening for malignant [facility] 00:00:00 neoplasm of colon Medical Ce nter (procedure) [code = 930262635] Future Scheduled 1973 Screening for malignant [facility] 00:00:00 neoplasm of colon Medical Ce nter (procedure) [code = 678921321] Future Scheduled 1973 Screening for malignant [facility] 00:00:00 neoplasm of colon Medical Ce nter (procedure) [code = 105568649] Future Scheduled 1973 Sigmoidoscopy [facility]code = [facility] S[facility]oscopy] Medical Cente r Future Scheduled 1973 CT Colonography (combo) [facility] 00:00:00 [code = CT Colonography [facility] (combo)] Future Scheduled 1973 Screening for malignant [facility] 00:00:00 neoplasm of colon Medical Ce nter (procedure) [code = 104571063] Future Scheduled 1973 Screening for malignant [facility] 00:00:00 neoplasm of colon Medical Ce nter (procedure) [code = 964996667] Future Scheduled 1973 Screening for malignant [facility] 00:00:00 neoplasm of colon Medical Ce nter (procedure) [code = 293803145] Future Scheduled 1973 Screening for malignant [facility] 00:00:00 neoplasm of colon Medical Ce nter (procedure) [code = 351879476] Future Scheduled 1973 Sigmoidoscopy [code = [facility] S[facility]oidoscopy] Medical Cente r Future Scheduled 1973 CT Colonography (combo) [facility] 00:00:00 [code = CT Colonography [facility] (combo)] Future Scheduled 1973 Screening for malignant [facility] 00:00:00 neoplasm of colon Medical Ce nter (procedure) [code = 850588953] Future Scheduled 1973 Screening for malignant [facility] 00:00:00 neoplasm of colon Medical Ce nter (procedure) [code = 928765818] Future Scheduled 1973 Screening for malignant [facility] 00:00:00 neoplasm of colon Medical Ce nter (procedure) [code = 520555046] Future Scheduled 1973 Screening for malignant [facility] 00:00:00 neoplasm of colon Medical Ce nter (procedure) [code = 597954728] Future Scheduled 1973 Sigmoidoscopy [code = [facility]] Medical Cente r Future Scheduled 1973 CT Colonography (combo) [facility] 00:00:00 [code = CT Colonography [facility] (combo)] Future Scheduled 1973 Screening for malignant [facility] 00:00:00 neoplasm of colon Medical Ce nter (procedure) [code = 689011566] Future Scheduled 1973 Screening for malignant [facility] 00:00:00 neoplasm of colon Medical Ce nter (procedure) [code = 070159136] Future Scheduled 1973 Screening for malignant [facility] 00:00:00 neoplasm of colon Medical Ce nter (procedure) [code = 813289950] Future Scheduled 1973 Screening for malignant [facility] 00:00:00 neoplasm of colon Medical Ce nter (procedure) [code = 895168558] Future Scheduled 1973 Sigmoidoscopy [code = [facility]oscopy] Medical Catherinee r Future Scheduled 1973 CT Colonography (combo) [facility] 00:00:00 [code = CT Colonography [facility] (combo)] Future Scheduled 1973 Screening for malignant [facility] 00:00:00 neoplasm of colon Medical Ce nter (procedure) [code = 895010771] Future Scheduled 1973 Screening for malignant [facility] 00:00:00 neoplasm of colon Medical Ce nter (procedure) [code = 484367502] Future Scheduled 1973 Screening for malignant [facility] 00:00:00 neoplasm of colon Medical Ce nter (procedure) [code = 324280044] Future Scheduled 1973 Screening for malignant [facility] 00:00:00 neoplasm of colon Medical Ce nter (procedure) [code = 333825859] Future Scheduled 1973 Sigmoidoscopy [code = [facility]] Medical Cente r Future Scheduled 1973 Screening for malignant [facility] 00:00:00 neoplasm of colon Medical Ce nter (procedure) [code = 759834566] Future Scheduled 1973 Screening for malignant [facility] 00:00:00 neoplasm of colon Medical Ce nter (procedure) [code = 418353998] Future Scheduled COVID-19 VACCINE (1) [facility] [code = COVID-19 VACCINE Hos pital (1)] Future Scheduled Hepatitis C screening [facility] (procedure) [code = Hospital 255654742] Future Scheduled [facility] for [facility] (procedure) [code = 903341377] Future Scheduled INFLUENZA VACCINE [code = [facility] INFLU[facility] VACCINE] Hospital Encounters Start End Encounter Admission Attending Care Care Encounter Source Date/Time Date/Time Type Type Clinicians Facility Department ID 2021-04-25 Outpatient [facility] [id number] [place] 12:28:46 [facility] 2020-12-18 Outpatient [facility] [id number] [place] 04:17:31 [facility] 2023-02-12 2023-02-12 Emergency X [facility] ERT [id number] Univers 16:33:00 16:46:00 FABRICIO kowalski [facility] 2023-02-12 2023-02-12 Emergency [facility] 1.2.455.190 [id number] Univers 16:33:00 16:46:00 Fabricio GALLARDO 350.1.13.10 i ty [facility] 4.2.7.2.686 [facility] [id number] [address] 2022-12-11 2022-12-12 Emergency X [facility] ERT [id number] Univers 20:26:00 02:05:[address] [facility] 2022-12-11 2022-12-12 Emergency [facility] 1.2.304.148 [id number] Univers 20:26:00 02:05:00 Nmheriberto Brannon GALLARDO 350.1.13.10 ity [facility] 4.2.7.2.686 [facility] [id number] [address] 2022-11-27 2022-11-27 Emergency X [facility] ERT [id number] Univers 13:12:00 20:16:00 SIMRAN kowalski [facility] 2022-11-27 2022-11-27 Emergency [facility] 1.2.900.159 [id number] [id number] Univers 13:12:00 20:16:00 Simran GALLARDO 350.1.13.10 i ty of [place] 4.2.7.2.686 [facility] [id number] [facility] [address] 2022-11-27 2022-11-27 Orders Doctor ELGIN 1.2.840.114 [id number] Univers 00:00:00 00:00:00 Only Unassigned, JOVANNA 350.1.13.10 ity of [facility] 4.2.7.2.686 Donal [id number] [facility] [address] 2022-08-14 2022-08-14 Emergency [facility] 1.2.204.457 3039 3415 Univers 20:40:00 23:10:00 Halima GALLARDO 350.1.13.10 ity of [place] 4.2.7.2.686 [facility] [id number] [place] [address] Branch 2022-08-14 2022-08-14 Emergency X [facility] ERT [id number] Univers 20:40:00 23:10:00 HALIMA ity of [facility] 2022-05-16 2022-05-16 Outpatient Arceneaux_C VFP VFP 221 1653-20 Village 00:00:00 00:00:00 [id number] Family Practic e 2021-06-29 2021-06-29 Emergency James, 1.2.840.1 [id number] Methodi 10:17:00 12:01:00 Haroon Young [address]43.1.[address] 3.430.2.7 Hospit a .3.785512 l .8 2021-06-29 2021-06-29 Travel 1.2.840.1 1.2.869.629 9592 025638 Methodi 00:00:00 00:00:[address] 3.430.2.7 0.2.7.3.698 Ho spita .3.004702 084.8 l .8 2021-05-05 2021-05-06 Emergency ER Boles, [facility] [id number] 20:22:00 01:24:00 Joe Lai [facility] 2021-05-05 2021-05-05 Emergency ER [facility] Emergency [id number] [facility] 20:07:00 20:07:00 2021-05-05 2021-05-05 Travel [facility] [id number] [facility] 00[facility] 00[facility]00 [facility] 2021-04-25 2021-04-25 Office VINCE Olivares [facility] 1.2.840.114 [id number] [place] 10:00:00 12:28:43 Visit Leandro [facility] 350.1.13.58 H [facility] [address] 4 9.2.7.2.686 [id number] 4 2021-02-18 2021-02-18 Emergency E MATTHIAS, [facility] 7503 [facility] 08:39:00 12:51:00 TEJAL 2021-02-08 2021-02-08 Orders Waleska Henriquez [facility] 1.2.840.11 4 [id number] MT 00:00:00 00:00:00 Only Waleksa Henriquez [facility] 350.1.13.58 Health [address] 4 9.2.7.2.686 [id number] 4 2021-02-08 2021-02-08 Orders VINCE Henriquez [facility] 1.2.840.114 [id number] 00:00:00 00:00:00 [facility] 350.1.13.58 PLA[address] 4 9.2.7.2.686 [id number] 4 2020-12-20 2020-12-20 Telephone Vinson, 1.2.840.1 [id number] 2100 770018 Method 00:00:00 00:00:[address] 3.430.2.7 Hospit a .3.444028 l .8 2020-12-16 2020-12-16 VINCE Dimas [facility] 7410 7276 MT 11:00:00 11:00:00 t; LEANDRO OLIVARES, Advanced P jn PANTOJA M.D. Cardiology ans M.D. [facility] 2020-12-14 2020-12-14 Telephone Vinson, 1.2.840.1 [id number] 2100 [id number] Methodi 00:00:00 00:00:[address] 3.430.2.7 Hospit a .3.190398 l .8 2020-12-07 2020-12-08 Outpatient E ERLINDA, [facility] PUL 7502 M[facility]W 17:43:00 13:15:00 VIRAL 2020-12-08 2020-12-08 EXT [facility] OP Khalid, EXT MSRDP 1.2.840.114 1 [id number] [place] 00:00:00 00:00:00 Adnan LOCATION 350.1.13.58 H ealth 9.2.7.2.686 [id number] 0 2020-12-08 2020-12-08 EXT [facility] OP Khalid, EXT MSRDP 1.2.840.114 1 [id number] [place] 00:00:00 00:00:00 Adnan LOCATION 350.1.13.58 H ealth 9.2.7.2.686 [id number] 0 2020-12-06 2020-12-06 Appointmen JEANNIE CLARKE UTP [id number] [place] 14:00:00 14:00:00 t; BANKIM BEHARI Phys ici millicent CHAMBERS SANDIPAN SANDIPAN PATI, M.D. PATI, M.D. 2020-12-03 2020-12-06 [facility] 1.2.840.1 [id number] Methodi 16:45:00 11:32:00 Obdulio Spicer 89479.1.[address] 3.430.2.7 Hospit a .3.177289 l .8 2020-12-02 2020-12-02 Appointmen VINCE OLIVARES ACTAT [id number] [place] 11:15:00 11:15:00 t; LEANDRO OLIVARES, Surgery - Physici Chalo PANTOJA Kelly millicent Isabel 2020-11-17 2020-11-17 Emergency García, 1.2.840.1 [id number] 2100 [id number] Methodi 17:26:00 20:59:[address] Mendel 3.430.2.7 Hospit a .3.991323 l .8 2020-11-17 2020-11-17 [facility], [facility] [id number] 45 [place] 15:00:00 15:00:00 t; Carter ROQUE i, M.D. ans ASHTON, M.D. 2020-11-17 2020-11-17 Travel 1.2.840.1 1.2.690.467 0487 257638 Methodi 00:00:00 00:00:[address] 3.430.2.7 0.2.7.3.698 Ho spita .3.255434 084.8 l .8 2020-11-02 2020-11-03 Emergency Dionicio, 1.2.840.1 [id number] 2 [id number] Methodi 23:00:00 01:47:[address] Nelsy 3.430.2.7 Hospit a .3.698113 l .8 2020-11-02 2020-11-02 Travel 1.2.840.1 1.2.648.421 0020 751163 Methodi 00:00:00 00:00:[address] 3.430.2.7 0.2.7.3.698 Ho spita .3.097845 084.8 l .8 2020-09-16 2020-09-17 Emergency [place] 1.2.840.1 1041 68178 [id number] Methodi 13:34:00 13:30:00 Clarice Brannon 05187.1.[address] JulioblairLj briscoe 3.430.2.7 Hospita .3.149329 l .8 2020-09-10 2020-09-11 Emergency Jose Elias Torres A. 1.2.840.1 1041 71946 [id number] Methodi 22:04:00 18:12:00 Lydia Oden 37629.1.[address] Maribel Dickey 3.430.2.7 H ospita JuliodemondLj Britni .3.206745 l .8 2020-09-10 2020-09-10 Travel 1.2.840.1 1.2.341.384 5485 955587 Methodi 00:00:00 00:00:[address] 3.430.2.7 0.2.7.3.698 Ho spita .3.501427 084.8 l .8 2020-07-15 2020-07-16 Emergency García, 1.2.840.1 [id number] 2099 [id number] Methodi 20:20:00 01:48:[address] Mendel 3.430.2.7 Hospit a .3.390951 l .8 2020-07-15 2020-07-15 Travel 1.2.840.1 1.2.897.091 1943 130470 Methodi 00:00:00 00:00:[address] 3.430.2.7 0.2.7.3.698 Ho spita .3.886571 084.8 l .8 2020-05-06 2020-05-08 Emergency [facility]ukes 1.2.840.1 1 63633 [id number] Methodi 00:09:00 12:49:00 [place] [address]11[address] 3.430.2.7 Hospit a .3.197773 l .8 2020-05-06 2020-05-06 Travel 1.2.840.1 1.2.143.126 8289 570075 Methodi 00:00:00 00:00:[address] 3.430.2.7 0.2.7.3.698 Ho spita .3.153809 084.8 l .8 2020-02-20 2020-02-20 Emergency ER [facility] Emergency [id number] [facility] 19:04:00 19:04:00 2020-02-20 2020-02-20 Outpatient FBCOVID FBCOVID P-92250 -20 FBCOVID 00:00:00 00:00:00 599847 5071-06-24 2020-02-04 Outpatient [facility] 98273 50684 [place] 10:15:00 23:59:00 CWANZA [facility] 2020-02-04 2020-02-04 Emergency ER [facility] Emergency [id number] 7096 [facility] 05:29:00 05:29:00 2019-12-03 2019-12-03 Emergency E MARISOL [facility]OD[facility]IGUEZED [facility] 7501 Memoria 16:11:00 19:03:00 [facility] 2019-12-03 2019-12-03 [facility] 0122 Memoria 17:00:00 18:55:00 FARID l [facility] 2019-10-12 2019-10-12 Emergency [facility] [id number] -2 [facility] 17:06:00 17:06:00 [id number] 2019-08-25 2019-08-25 Emergency E [facility] NW 0013 [facility] 17:44:00 17:44:00 2016-02-13 2016-02-13 EC nullFlavo [facility] [id number] 475 Memoria 05:43:00 11:41:00 Emergency r Antonio 00 l [facility] 2016-02-13 2016-02-13 EC nullFlavo [facility] [id number] 475 Memoria 05:43:00 11:41:00 Emergency r Marion 00 l [facility] 2016-02-13 2016-02-13 Outpatient Sravanthi [facility] [id number] 00:43:00 06:41:00 Malorie Zenia Palacios 2014-09-04 2014-09-04 EC nullFlavo [facility] [id number] 675 Memoria 07:09:00 09:15:00 Emergency r Marion 19 l [facility] 2014-09-04 2014-09-04 [facility] [id number] 675 Memoria 07:09:00 09:15:00 Emergency r Antonio 19 l [facility] 2014-09-04 2014-09-04 Outpatient Aldo, 2.16.840. 2.16.840.1. [id number] 01:09:00 03:15:00 Tatsuo 1.798607. 853004.3.61 19 3.615.0.1 5.0.043 99 4351-01-12 2014-08-24 [facility] [id number] 675 Memoria 17:17:00 22:15:00 Emergency r Antonio 18 l [facility] 2014-08-24 2014-08-24 [facility] [id number] 675 Memoria 17:17:00 22:15:00 Emergency r Marion 18 l [facility] 2014-08-24 2014-08-24 Outpatient Aldo, 2.16.840. 2.16.840.1. [id number] 11:17:00 16:15:00 Tatsuo 1.553148. 622875.3.61 18 3.615.0.1 5.0.101 01 Results Test Description [...] 34.2 g/dL 31.6-35.1 RDW-SD (test code = 16297-2) 40.3 fL 39.0-49.9 RDW-CV (test code = 788-0) 12.5 % 12.0-15.5 PLT (test code = 777-3) 437 See_Comment H [Au tomated message] The system which ge nerated this result transmit gaye reference range: 166 - 35 8 10*3/?L. The reference range was not used to interpret th is result as normal/abnormal . MPV (test code = 40890-0) 9.9 fL 9.5-12.9 NRBC/100 WBC (test code = 0.0 See_Comment [ Automated message] The 9776546952) system which [employer] nerated this result transmit gaye reference range: 0.0 - 10 .0 /100 WBCs. The reference r ozzy was not used to interpr et this result as normal/abnor mal. NRBC x10^3 (test code = See_Comment [Au tomated message] The 5339820168) system which [employer] nerated this result transmit gaye reference range: 10*3/?L. The reference range was not u sed to interpret this result as normal/abnormal . SEG % (test code = 25095-1) 41 % 33-76 LYMPH % (test code = 48 % 14-54 18937-8) MONO % (test code = 39643-1) 8 % 0-4 H EOS % (test code = 33496-1) 3 % 0-3 ANC (test code = 753-4) 4.28 10*3/uL 1.88-7.09 Lab Interpretation (test Abnormal code = 23182-8) [facility]1618[facility]20[facility]-12 05:29:31 Test Item Value Reference Range Interpretation Comments NA (test code = 138 mmol/L 135-145 2775745208) K (test code = 4.3 mmol/L 3.5-5.0 4938919268) CL (test code = 106 mmol/L 98-108 0429610123) CO2 TOTAL (test code = 21 mmol/L 23-31 L 6393548163) AGAP (test code = 11 2-16 0859722645) BUN (test code = 8 mg/dL 7-23 5012943525) GLUCOSE (test code = 113 mg/dL 70-110 H 2391942805) CREATININE (test code = 0.59 mg/dL 0.50-1.04 1415449732) TOTAL BILI (test code = 1.0 mg/dL 0.1-1.1 0249213083) CALCIUM (test code = 9.3 mg/dL 8.6-10.6 5526731517) T PROTEIN (test code = 7.3 g/dL 6.3-8.2 9486854747) ALBUMIN (test code = 4.3 g/dL 3.5-5.0 0501420151) ALK PHOS (test code = 59 U/L 34-122 8091189684) ALTv (test code = 25 U/L 5-35 1742-6) AST(SGOT) (test code = 24 U/L 13-40 9552822026) eGFR (test code = 108.3 mL/min/1.73m2 4804859741) CIRO (test code = CIRO) Association of [...] tests). Lab Interpretation Abnormal (test code = 97655-2) [facility] 05[facility]29[facility]31 Test Item Value Reference Range Interpretation Comments LIPASE (test code = 5710683164) 133 U/L 0-220 Lab Interpretation (test code = Normal 20712-3) [facility] [id number] 23:18:00 Test Item Value Reference Range Interpretation Comments POCT PREG (test code = 1605) Negative On board controls acceptable with Present C Line (test code = 3574) POCT PREG LOT # (test code = 3575) [id number] POCT PREG TEST DATE (test 05-18-2024 code = 3576) Lab Interpretation (test code = Normal 87679-0) [facility] (NA, K, CL, CO2, GLUCOSE, BUN, CREATININE, CA)2022-11-27 20:08:10 Test Item Value Reference Range Interpretation Comments NA (test code = 138 mmol/L 135-145 1202398943) K (test code = 4.7 mmol/L 3.5-5.0 6493041120) CL (test code = 104 mmol/L 98-108 3174513045) CO2 TOTAL (test code = 21 mmol/L 23-31 L 3072878314) AGAP (test code = 13 2-16 4475365445) BUN (test code = 6 mg/dL 7-23 L 3937274815) GLUCOSE (test code = 98 mg/dL 70-110 6397138538) CREATININE (test code = 0.55 mg/dL 0.50-1.04 6697447481) CALCIUM (test code = 9.0 mg/dL 8.6-10.6 8466048172) eGFR (test code = 117.5 mL/min/1.73m2 7476607406) CIRO (test code = CIRO) Association of [...] tests). Lab Interpretation Abnormal (test code = 87936-6) [facility] WITH [id number] 19:53:46 Test Item Value Reference Range Interpretation Comments WBC (test code = 9.87 See_Comment [Automated 0143-2) message] The sy stem which generated this result transmitted reference range : 4.30 - 11.10 10*3/?L. The reference range was not used to interpret this result as normal/abnormal . RBC (test code = 4.86 See_Comment [Automated 186-9) message] The sy stem which generated this [...] RDW-SD (test code = 41.0 fL 39.0-49.9 63396-3) RDW-CV (test code = 12.8 % 12.0-15.5 788-0) PLT (test code = 399 See_Comment H [Automated 777-3) message] The sy stem which generated this result transmitted reference range : 166 - 358 10*3/ ?L. The reference r ozzy was not used to interpret this result as normal/abnormal . MPV (test code = 9.6 fL 9.5-12.9 79286-8) NRBC/100 WBC (test 0.0 See_Comment [Automat ed code = 8277585341) message] The system which generated this result transmitted reference range : 0.0 - 10.0 /100 WBCs. The refer ence range was not u sed to interpret th is result as normal/abnormal . NRBC x10^3 (test code See_Comment [Auto mated = 7005652817) message] The s ystem which generated this result transmitted reference range : 10*3/?L. The reference range was not used to interpret this result as normal/abnormal . GRAN MAT (NEUT) % 57.8 % (test code = 770-8) IMM GRAN % (test code 0.70 % = 1157693634) LYMPH % (test code = 32.4 % 736-9) MONO % (test code = 5.2 % 5905-5) EOS % (test code = 3.0 % 713-8) BASO % (test code = 0.9 % 706-2) GRAN MAT x10^3(ANC) 5.70 10*3/uL 1.88-7.09 (test code = 9357909929) IMM GRAN x10^3 (test 0.07 10*3/uL 0.00-0.06 H code = 7011349224) LYMPH x10^3 (test code 3.20 10*3/uL 1.32-3.29 = 731-0) MONO x10^3 (test code 0.51 10*3/uL 0.33-0.92 = 742-7) EOS x10^3 (test code = 0.30 10*3/uL 0.03-0.39 711-2) BASO x10^3 (test code 0.09 10*3/uL 0.01-0.07 H = 704-7) Lab Interpretation Abnormal (test code = 16817-2) [facility], [id number] 04:20:10 Test Item Value Reference Range Interpretation Comments PREG SERUM (test code Negative = 0487357141) CIRO (test code = CIRO) Less than 10 IU/L. ?If low titer or ectopic is suspected, resubmit specimen in 48-72 hours. [facility] [id number] 03:49:08 Test Item Value Reference Interpretation Comments Range TROPONIN I (test 0.001 ng/mL See_Comment [Automated code = 2513577899) message] The system which generated this result [...] biotin. Lab Interpretation Normal (test code = 73860-0) [facility]. METABOLIC PANEL (39985)2022-08-15 03:37:26 Test Item Value Reference Range Interpretation Comments NA (test code = 138 mmol/L 135-145 1982124896) K (test code = 3.6 mmol/L 3.5-5.0 1013005051) CL (test code = 105 mmol/L 98-108 8248712341) CO2 TOTAL (test code 24 mmol/L 23-31 = 9005420410) AGAP (test code = 2-16 2806931291) BUN (test code = 9 mg/dL 7-23 1816752716) GLUCOSE (test code = 105 mg/dL 70-110 7209054592) CREATININE (test code 0.75 mg/dL 0.50-1.04 = 8349277006) TOTAL BILI (test code 0.6 mg/dL 0.1-1.1 = 7807983736) CALCIUM (test code = 8.7 mg/dL 8.6-10.6 3104244200) T PROTEIN (test code 6.7 g/dL 6.3-8.2 = 6148472771) ALBUMIN (test code = 3.9 g/dL 3.5-5.0 2810322441) ALK PHOS (test code = 69 U/L 34-122 4101140268) ALTv (test code = 35 U/L 5-35 2-6) AST(SGOT) (test code 27 U/L 13-40 = 4504150259) eGFR (test code = mL/min/1.73m2 2613195079) CIRO (test code = CIRO) Association of [...] or urine or abnormalities in imaging tests). [facility] WITH [id number] 03:25:05 Test Item Value Reference Range Interpretation [...] RDW-SD (test code = 41.3 fL 39.0-49.9 12119-3) RDW-CV (test code = 12.5 % 12.0-15.5 788-0) PLT (test code = See_Comment H [Automated 777-3) message] The sy stem which generated this result transmitted reference range : 166 - 358 10*3/ ?L. The reference r ozzy was not used to interpret this result as normal/abnormal . MPV (test code = 9.4 fL 9.5-12.9 L 87563-3) NRBC/100 WBC (test See_Comment [Automat ed code = 5458136783) message] The system which generated this result transmitted reference range : 0.0 - 10.0 /100 WBCs. The refer ence range was not u sed to interpret th is result as normal/abnormal . NRBC x10^3 (test code See_Comment [Auto mated = 2634995379) message] The s ystem which generated this result transmitted reference range : 10*3/?L. The reference range was not used to interpret this result as normal/abnormal . GRAN MAT (NEUT) % 55.2 % (test code = 770-8) IMM GRAN % (test code 0.50 % = 6648891172) LYMPH % (test code = 30.7 % 736-9) MONO % (test code = 6.4 % 5905-5) EOS % (test code = 6.2 % 713-8) BASO % (test code = 1.0 % 706-2) GRAN MAT x10^3(ANC) 5.54 10*3/uL 1.88-7.09 (test code = 0151071538) IMM GRAN x10^3 (test 0.05 10*3/uL 0.00-0.06 code = 2490115069) LYMPH x10^3 (test code 3.08 10*3/uL 1.32-3.29 = 731-0) MONO x10^3 (test code 0.64 10*3/uL 0.33-0.92 = 742-7) EOS x10^3 (test code = 0.62 10*3/uL 0.03-0.39 H 711-2) BASO x10^3 (test code 0.10 10*3/uL 0.01-0.07 H = 704-7) Lab Interpretation Abnormal (test code = 69229-2) [facility]et[facility] [id number] 14:27:33 Test Item Value Reference Interpretation Comments Range Levetiracetam (test <2.0 mcg/mL L Referen ce Range: code = 3507717) 12.0-46.0 To xic level is not we ll established. Interpretation should include a clinical evalua tion. For additional information, pl ease refer tohttp://educat ion.Be my eyes .Everypoint/ faq/QZH342(This link is being provid ed forinformationa l/edu cational purpos es only.) This jose t was developed and i ts analytical performance characteristics have been determined by [email or web address]. It has not been cleared or appr christiano by theFDA. This assay has been validated pursu ant to the CLIA regulations and is used for clinic al purposes. CIRO (test code = Performing Lab CIRO) *GAGANDEEP [facility], [address] [place] [id number] Parminder Szymanski MD Lab Interpretation Abnormal (test code = 85201-2) [facility] [id number] 14:27:33 Test Item Value Reference Interpretation Comments Range Levetiracetam (test <2.0 mcg/mL L Referen ce Range: code = 4822017) 12.0-46.0 To xic level is not we ll established. Interpretation should include a clinical evalua tion. For additional information, pl ease refer tohttp://educat ion.[employer]/ faq/JCW251(This link is being provid ed forinformationa l/edu cational purpos es only.) This jose t was developed and i ts analytical performance characteristics have been determined by [email or web address]. It has not been cleared or appr christiano by theFDA. This assay has been validated pursu ant to the CLIA regulations and is used for clinic al purposes. CIRO (test code = Performing Lab CIRO) *GAGANDEEP [facility], [address] [place] [id number] Parminder Szymanski MD Lab Interpretation Abnormal (test code = 81852-0) [facility], WITHOUT [id number] 23:05:00 Unlisted Reason for Exam - Click Yes and Enter Reason Below->No [facility] 1975 Sex: FFINAL [...] Date/Time: 05/05/2021 23:05:29 CT, SPINE, CERVICAL, WO [id number] 23:05:00Unlisted Reason for Exam - Click Yes and Enter Reason Below->No [facility] 1975 Sex: FFINAL [...] Asencio MDReport Verified Date/Time: 05/05/2021 23:05:29 Troponin [id number] 21:22:45 Test Item Value Reference Range Interpretation Comments Troponin I (test code = <0.03 0.00-0.15 93890-7) CIRO (test code = CIRO) Troponin I [...] failure, acidosis, acute neurological disease, and persistent tachyarrhythmia.[facility] ID - THELMA Lab Interpretation (test Normal code = 03702-4) [facility] [id number] 21:22:45 Test Item Value Reference Range Interpretation Comments Troponin I (test code = <0.03 0.00-0.15 26485-4) CIRO (test code = CIRO) Troponin I [...] failure, acidosis, acute neurological disease, and persistent tachyarrhythmia.[facility] ID - THELMA Lab Interpretation (test Normal code = 98888-1) [facility] [id number] 21:22:45 Test Item Value Reference Range Interpretation [...] failure, acidosis, acute neurological disease, and persistent tachyarrhythmia.Geophysicist ID - JUSTINComprehensive metabolic inqjt3506-61-08 21:20:36 Test Item Value Reference Interpretation Comments Range Protein, Total (test 7.5 See_Comment Specime n code = 2885-2) slightly hemolyzed [Automated message] The system which generated this result transmitted reference range : 6.0 - 8.5 gm/dL . The reference range was not used to interpret this result as normal/abnormal . Albumin (test code = 4.1 g/dL 3.5-5.0 [place] [address]-8) slightly hemolyzed Alkaline Phosphatase 72 U/L 30-115 (test code = 6768-6) Total Bilirubin 1.0 mg/dL 0.1-1.2 Specimen (test code = 1974-2) slightl y hemolyzed Sodium (test code = 141 meq/L 040-726 9060-2) Potassium (test code 3.8 meq/L 3.6-5.5 Specime n = 2823-3) slightly hemolyzed Chloride (test code 104 meq/L 98-106 = 2075-0) CO2 (test code = 24 meq/L 20-29 2028-9) BUN (test code = 7 mg/dL 10-26 L 3094-0) Creatinine (test 0.81 mg/dL 0.50-1.20 Specimen code = 2160-0) slightly hemolyzed Glucose (test code = 92 mg/dL 70-110 2345-7) Calcium (test code = 9.4 mg/dL 8.5-10.5 84862-4) AST (test code = 21 U/L 5-40 Specimen 1920-8) slightly hemolyzed ALT (test code = 27 U/L 5-50 Specimen 1742-6) slightly hemolyzed EGFR (test code = 76 mL/min/1.73 [place] [address]-0) m NOT ACCURATE CREATININE CLEARANCE IN PREDICTING GLOMERULAR FILTRATION RATE . ESTIMATED GFR I S NOT APPLICABLE FOR DIALYSIS PATIENTS. CIRO (test code = Geophysicist ID - CIRO) JUSTINOperator ID - JUSTINOperator [...] THELMA Lab Interpretation Abnormal (test code = 27684-9) [facility] ubeiu6535-63-25 21:20:36 Test Item Value Reference Interpretation Comments Range Protein, Total (test 7.5 See_Comment Specime n code = 2885-2) slightly hemolyzed [Automated message] The system which generated this result transmitted reference range : 6.0 - 8.5 gm/dL . The reference range was not used to interpret this result as normal/abnormal . Albumin (test code = 4.1 g/dL 3.5-5.0 [place] [address]-2) slightly hemolyzed Alkaline Phosphatase 72 U/L 30-115 (test code = 6768-6) Total Bilirubin 1.0 mg/dL 0.1-1.2 Specimen (test code = 1974-2) slightl y hemolyzed Sodium (test code = 141 meq/L 154-488 6587-2) Potassium (test code 3.8 meq/L 3.6-5.5 Specime n = 2823-3) slightly hemolyzed Chloride (test code 104 meq/L 98-106 = 2075-0) CO2 (test code = 24 meq/L 20-29 2028-9) BUN (test code = 7 mg/dL 10-26 L 3094-0) Creatinine (test 0.81 mg/dL 0.50-1.20 Specimen code = 2160-0) slightly hemolyzed Glucose (test code = 92 mg/dL 70-110 2345-7) Calcium (test code = 9.4 mg/dL 8.5-10.5 51079-1) AST (test code = 21 U/L 5-40 Specimen 1920-8) slightly hemolyzed ALT (test code = 27 U/L 5-50 Specimen 1742-6) slightly hemolyzed EGFR (test code = 76 mL/min/1.73 [place] [address]-5) m NOT ACCURATE CREATININE CLEARANCE IN PREDICTING GLOMERULAR FILTRATION RATE . ESTIMATED GFR I S NOT APPLICABLE FOR DIALYSIS PATIENTS. CIRO (test code = Geophysicist ID - CIRO) JUSTINOperator ID - JUSTINOperator [...] THELMA Lab Interpretation Abnormal (test code = 49665-5) [facility] [id number] 21:20:36 Test Item Value Reference Range Interpretation [...] S NOT APPLICABLE FOR DIALYSIS PATIEN TS. Geophysicist ID - JUSTINOperator ID - JUSTINOperator ID - JUSTINOperator ID - JUSTINOperator ID - JUSTINOperator ID - JUSTINOperator ID - JUSTINOperator ID - JUSTINOperator ID - JUSTINOperator ID - JUSTINOperator ID - JUSTINOperator ID - JUSTINOperator ID - JUSTINOperator ID - JUSTINOperator ID - JUSTINOperator ID - JUSTINOperator ID - JUSTINOperator ID - JUSTINOperator ID - JUSTINCBC with platelet count + automated [id number] 20:51:36 Test Item Value Reference Range Interpretation Comments WBC (test code = 6690-2) 12.0 See_Comment H [A utomated message] The system [employer] generated this result transmitted ref erence range: 4.0 - 10 .0 K/L. The refe rence range was not u sed to interpret this result as normal/abnor mal. RBC (test code = 789-8) 4.84 See_Comment [Au tomated message] The system [employer] generated this result transmitted ref erence range: 4.00 - 5 .00 M/L. The refe rence range was not u sed to interpret this result as normal/abnor mal. MCHC (test code = 786-4) 34.8 See_Comment [A utomated message] The system [employer] generated this result transmitted ref erence range: [...] H [Aut omated message] 777-3) The system [employer] generated this result transmitted ref erence range: 150 - 43 0 K/CU MM. The referen ce range was not u sed to interpret this result as normal/abnor mal. MPV (test code = 9.7 fL 6.0-11.5 64453-9) nRBC (test code = 413) 0 See_Comment [Aut omated message] The system [employer] generated this result transmitted ref erence range: [...] See_Comment [Aut omated message] 670) The system [employer] generated this result transmitted ref erence range: 1.80 - 8 .00 K/L. The refe rence range was not u sed to interpret this result as normal/abnor mal. # Lymphs (test code = 3.61 See_Comment [Auto mated message] 414) The system [employer] generated this result transmitted ref erence range: 1.48 - 4 .50 K/L. The refe rence range was not u sed to interpret this result as normal/abnor mal. # Monos (test code = 0.86 See_Comment [Autom ated message] 415) The system [employer] generated this result transmitted ref erence range: 0.00 - 1 .30 K/L. The refe rence range was not u sed to interpret this result as normal/abnor mal. # Eos (test code = 416) 0.41 See_Comment [Au tomated message] The system [employer] generated this result transmitted ref erence range: 0.00 - 0 .50 K/L. The refe rence range was not u sed to interpret this result as normal/abnor mal. # Baso (test code = 417) 0.10 See_Comment [A utomated message] The system [employer] generated this result transmitted ref erence range: 0.00 - 0 .20 K/L. The refe rence range was not u sed to interpret this result as normal/abnor mal. Immature 0 % 0-0 Granulocytes-Relative (test code = 2801) Lab Interpretation (test Abnormal code = 69355-4) [facility] with platelet count + automated [id number] 20:51:36 Test Item Value Reference Range Interpretation Comments WBC (test code = 6690-2) 12.0 See_Comment H [A utomated message] The system [employer] generated this result transmitted ref erence range: 4.0 - 10 .0 K/L. The refe rence range was not u sed to interpret this result as normal/abnor mal. RBC (test code = 789-8) 4.84 See_Comment [Au tomated message] The system [employer] generated this result transmitted ref erence range: 4.00 - 5 .00 M/L. The refe rence range was not u sed to interpret this result as normal/abnor mal. MCHC (test code = 786-4) 34.8 See_Comment [A utomated message] The system [employer] generated this result transmitted ref erence range: [...] H [Aut omated message] 777-3) The system [employer] generated this result transmitted ref erence range: 150 - 43 0 K/CU MM. The referen ce range was not u sed to interpret this result as normal/abnor mal. MPV (test code = 9.7 fL 6.0-11.5 05463-4) nRBC (test code = 413) 0 See_Comment [Aut omated message] The system [employer] generated this result transmitted ref erence range: [...] See_Comment [Aut omated message] 670) The system [employer] generated this result transmitted ref erence range: 1.80 - 8 .00 K/L. The refe rence range was not u sed to interpret this result as normal/abnor mal. # Lymphs (test code = 3.61 See_Comment [Auto mated message] 414) The system [employer] generated this result transmitted ref erence range: 1.48 - 4 .50 K/L. The refe rence range was not u sed to interpret this result as normal/abnor mal. # Monos (test code = 0.86 See_Comment [Autom ated message] 415) The system [employer] generated this result transmitted ref erence range: 0.00 - 1 .30 K/L. The refe rence range was not u sed to interpret this result as normal/abnor mal. # Eos (test code = 416) 0.41 See_Comment [Au tomated message] The system [employer] generated this result transmitted ref erence range: 0.00 - 0 .50 K/L. The refe rence range was not u sed to interpret this result as normal/abnor mal. # Baso (test code = 417) 0.10 See_Comment [A utomated message] The system [employer] generated this result transmitted ref erence range: 0.00 - 0 .20 K/L. The refe rence range was not u sed to interpret this result as normal/abnor mal. Immature 0 % 0-0 Granulocytes-Relative (test code = 2801) Lab Interpretation (test Abnormal code = 91862-1) [facility] W/PLT COUNT & AUTO [id number] 20:51:36 Test Item Value Reference Range Interpretation [...] (BEAKER) (test code = 2801) Continuous EEG pjccvjlnnz2312-57-39 01:51:44CONTINUOUS VIDEO-EEG MONITORING REPORT - END OF STUDY Patient Name: Shanna GuerreroVaN#: [id number] Date of : 1975 Initial Study Start [...] seizures captured. Onelia Hair MD ICD-10 Code: W353Rzzqvhwrcw EEG ejakrrfglg5821-27-97 12:59:42 CONTINUOUS VIDEO-EEG MONITORING REPORT Patient Name: [facility]roChrist HospitalN[id number] Date of : 1975 Initial Study Start [...] seizures captured. Onelia Hair MD ICD-10 Code: [id number] [place], [place] [address]scdm7239-24-84 05:31:10 Test Item Value Reference Range Interpretation Comments Ventricular rate (test code = 253) Atrial rate (test code = 255) LA interval (test code = 266) QRSD interval [...] 04:27,-Vent. rate has increased BY 62 BPM- [address]2021-04-25 05:31:10 Test Item Value Reference Range Interpretation Comments Ventricular rate (test code = 253) Atrial rate (test code = 255) LA interval (test code = 266) QRSD interval [...] 04:27,-Vent. rate has increased BY 62 BPM- [address]2021-04-25 05:31:10 Test Item Value Reference Range Interpretation Comments Ventricular rate (test code = 253) Atrial rate (test code = 255) LA interval (test code = 266) QRSD interval [...] 04:,-Vent. rate has increased BY 62 BPM- [facility] (routine) - Baseline [id number] 01:47:11VIDEO-EEG RECORDING AWAKE & ASLEEP - Baseline [...] Hair MD ICD-10 Code: [id number] Head Wo Ugcuhcsm5694-08-35 02:53:14EXAMINATION: CT HEAD WO CONTRAST CLINICAL HISTORY: Mental status change unknown cause COMPARISON: CT head 09/10/2020 TECHNIQUE: Axial CT images of the head obtained without intravenous contrast. Multiplanar reformatted images were also generated. FINDINGS: No evidence of acute intracranial hemorrhage,mass, mass effect, midline shift, or acute infarct. Ventricles and sulci are normal in appearance for age. Basal cisterns are clear. Calvarium is intact. Orbits are normal in appearance. No significantsinus inflammatory changes. Mastoid air cells are clear. IMPRESSION: 1. No CT evidence of acute intracranial abnormality. [id number] Interface, Radiology Results Incoming - 12/03/2020 9:56 [...] IMPRESSION:1. No CT evidence of acute intracranial abnormality.[id number] [facility] RNA [Presence] in Respiratory specimen by SOREN with probe vlrsvdtrj2735-58-24 02:03:42 Test Item Value Reference Range Interpretation Comments SARS-CoV-2 (COVID-19) RNA Not detected Not-Detected [Presence] in Respiratory specimen by SOREN with probe detection (test code = 56951-6) Whether patient is employed in a healthcare setting (test code = 69237-4) Whether the patient has symptoms related to condition of interest (test code = 74324-0) Patient was hospitalized because of this condition (test code = 58208-1) Whether the patient was admitted to intensive care unit (ICU) for condition of interest (test code = 49065-4) Whether patient resides in a congregate care setting (test code = 27587-7) [facility] 1 Vw Pwnuivlr3558-65-98 23:58:22EXAMINATION: XR CHEST 1 VW PORTABLE CLINICAL HISTORY: chest pain COMPARISON: 09/10/2020 IMPRESSION: 1.Heart size and central vasculature are normal. 2.The lungs are clear. There is no consolidation or effusion. 3.The bones are intact. 1D2RAD_PS02Hm Interface, Radiology Results [facility] - 12/03/2020 7:01 PM CDT EXAMINATION: XR CHEST 1 VW PORTABLECLINICAL HISTORY: chest painCOMPARISON: 09/10/2020IMPRESSION:1.Heart size and central vasculature are normal.2.The lungs are clear. There is no consolidation or effusion.3.The bones are intact.1D2RAD_P F06Zdghdxlvy HospitalCRITICAL GYGS0024-93-17 21:55:13Bladimir Brumfield MD 12/04/2020 3:12 PMCritical CarePerformed by: Bladimir Brumfield MDAuthorized by: Bladimir Cisse MD Critical care provider statement: Critical care time (minutes): 35 Critical caretime was exclusive of: Separately billable procedures and treating other patients Critical care was necessary to treat or prevent imminent or life-threatening deterioration of the following conditions:[employer] HOME failure or compromise Critical care was time [...] care for this patient from another provider.: [facility] ED Preliminary Interpretation - Not an Loxna4206-92-45 21:55:13 Bladimir Brumfield MD 12/04/2020 3:12 [facility] ED Preliminary Interpretation - Not an OrderPerformed by: Bladimir Brumfield MDAuthorized by: Bladimir Brumfield MD ECG reviewed by ED Physician in the absence of a glass checker: yes Rate: ECG rate: 119Rhythm: Rhythm: sinus tachycardia Ectopy: Ectopy: none QRS: QRS axis: Normal QRS intervals: NormalConduction: Conduction: normal ST segments: ST segments: NormalT waves: T waves: normalWe[facility] irdzrzn9078-41-10 01:10:19 Test Item Value Reference Range Interpretation Comments Urine culture (test SEE COMMENT Bacteriu mario screen code = 5705655) negative. [facility] ioznggm8586-28-46 01:10:19 Test Item Value Reference Range Interpretation Comments Urine culture (test SEE COMMENT Bacteriu mario screen code = 5963556) negative. [facility] zotofva3789-67-09 01:10:19 Test Item Value Reference Range Interpretation Comments Urine culture (test SEE COMMENT Bacteriu mario screen code = 3614198) negative. [facility][U] XRAY HAND MIN 3 VWS RIGHT [id number] 15:17:00Images acquired, not reported on this accession number.[facility] Hand 3+ Vw Right 2020-11-03 04:37:16EXAMINATION: XR HAND 3 VW RIGHT INDICATION: dog bite COMPARISON: None IMPRESSION: 3 views of the right hand were obtained.No visible acute fracture or dislocation.No visible radiodense foreign material. [facility], Radiology Results Incoming - 11/02/2020 11:40 PM CDT EXAMINATION: XR HAND 3 VW RIGHTINDICATION: dog biteCOMPARISON: NoneIMPRESSION:3 views of the right hand were obtained.No visible acute fracture or dislocation.No visible radiodense foreign material.[facility] (routine) 2020-09-17 16:59:35Date of Study [...] movements noted on this tracing by the weatherization field technician did not have an epileptic correlate. [...] in Respiratory specimen by SOREN with probe rkjneoxzp2999-05-76 00:31:49 Test Item Value Reference Range Interpretation Comments SARS-CoV-2 (COVID-19) RNA Not detected Not-Detected [Presence] in Respiratory specimen by SOREN with probe detection (test code = 06958-0) [facility] (routine)2020-09-11 20:16:18Date of Service: [...] in Respiratory specimen by SOREN with probe uxffmpefw1779-87-21 07:15:55 Test Item Value Reference Range Interpretation Comments SARS-CoV-2 (COVID-19) RNA Not detected Not-Detected [Presence] in Respiratory specimen by SOREN with probe detection (test code = 29629-0) [facility] Wo Sxdprvml9998-94-91 05:45:01EXAMINATION: CT ABDOMEN PELVIS WO CONTRAST HISTORY: [...] No high grade enterocolitis. No bowel obstruction.1D2RA D_PS02MethKindred HospitalSajpgwpmJFYC-VgY-9 (COVID-19) RNA [Presence] in Respiratory specimen by SOREN with probe aapfzsutu3446-59-49 05:23:42 Test Item Value Reference Range Interpretation Comments SARS-CoV-2 (COVID-19) RNA Not detected Not-Detected [Presence] in Respiratory specimen by SOREN with probe detection (test code = 25693-9) [facility]ENTERTransthoracic Echocardiogram Complete, (w Contrast, Strain and 3D if needed)2020-05-11 04:52:19 Test Item Value Reference Range Interpretation Comments Velocity Ratio (V1/V2) 0.85 m/s (test code = 4689) IVS,d (test code = 1.00 cm 1139438008) EF (test code = 52.31 % 2038079824) Ascending aorta (test 2.67 cm code = 1902782400) LVPWD,d (test code = 1.00 cm 4203026121) AoV Mean PG (test code mmHg = 5344219620) AV LVOT peak gradient mmHg (test code = 8256501458) MV mean gradient (test mmHg code = 6213981546) MV valve area p 1/2 3.31 cm2 method (test code = 2939338488) PV Pk Grad (test code = mmHg 3924389386) E/A ratio (test code = 8297759993) E wave decelartion time msec (test code = 8510812009) LVOT Diam,S (test code 1.98 cm = 4975828610) LVOT area (test code = 3.08 cm2 9809664294) LVOT Vmax (test code = 0.96 m/s 5641305564) LVOT VTI (test code = 0.21 m 1892377941) RVOT Vmax (test code = 0.58 m/s 5770435977) AoV Peak PG (test code mmHg = 3395428996) MV Peak E Giuliano (test 0.94 m/s code = 4500530295) MV stenosis pressure 66.39 ms 1/2 time (test code = 0530060555) MV Peak A Giuliano (test 0.74 m/s code = 1082528012) Ao Root Diameter (test 2.99 cm code = 3939276813) AoV Area, Vmax (test 2.60 cm2 code = 9218697937) AoV Area, VTI (test 2.95 cm2 code = 9226669949) AoV Vmax (test code = 1.13 m/s 0789497163) IVS/LVPW,2D (test code = 8289817761) Left Atrium Dimension 3.10 cm Anterior (test code = 1888891745) LV,d (test code = 4.15 cm 3198010373) LV,s (test code = 3.05 cm 0171871198) PV VMAX (test code = 0.78 m/s 7476356994) TR Vpeak (test code = 1.85 mm/s 8040823911) MV E A ratio (test code = 9774118354) TR pk grad (test code = mmHg 1797345365) MR peak grad (test code mmHg = 5026501892) Ao Root Diameter (test 2.99 cm code = 6014053654) LV SYS VOL (test code = 36.41 ml 8162956868) LV RIOS VOL (test code 76.34 ml = 8699844413) LV SV Teich 2D (test 39.93 ml code = 7046725562) LV Vol s Teich PSAX 36.41 ml (test code = 9245884705) MV Vmax (test code = 0.89 m 8307207315) MV VTI Tips (test code 0.22 m = 8435925797) RVOT pk grad (test code mmHg = 9814111573) AoV Vmn (test code = 8939994713) LV FS Cube 2D (test code = 7017873724) LV FS Teich 2D (test code = 5473927016) AoV VTI (test code = 0.22 m 3105270295) LA Area d A4C (test 12.41 cm2 code = 9772298082) LV EF,2D (test code = 60.32 % 9727740984) MR Vmax (test code = 4.15 m/s 4909875534) MV AE ratio (test code = 1629185400) LVOT Vmn (test code = 0647582794) Aov area Vmn (test code 2.47 cm2 = 6217023106) LA Vol d MOD A4C (test 27.63 ml code = 5792116954) LVOT mean grad (test mmHg code = 2278007114) MAX Pred HR (test code = 8708628004) 85 of MPHR (test code = 3918425080) Calc MPHR (test code = bpm 2423072680) LV SV Cube 2D (test 43.08 ml code = 4544406313) LV vol d cube 2D (test 71.42 ml code = 2438866474) LV vol s cube 2D (test 28.34 ml code = 6930107491) MV Decel slope (test 4.12 m/s2 code = 7844571345) Pred Exer Dur R1 (test code = 1852268106) Pred METS R1 (test code = 0416961263) CIRO (test code = CIRO) Left Ventricle: [...] regurgitation. No evidence of aortic valve stenosis. Presybeterianthiago Blackmon duplex venous upper tbdsbdlpf1621-42-10 06:14:50 EXAMINATION: US DUPLEX VENOUS UPPER EXTREMITY [...] visualized veins of the right upper extremity. [facility]- [id number] [facility], Radiology Results 05/08/2020 1:17 AM CDT [...] the visualized veins of the right upper extremity.[facility]-[id number] HospitalEE (routine)2020-05-07 22:01:23Date of Service: May 07, [...] a diagnosis of epilepsy.MRI Brain W Wo Uqzmfltx0453-73-62 03:27:20EXAMINATION: MRI BRAIN W WO CONTRAST CLINICAL [...] a perivenular morphology. 1M2RAD_PS01Hm Interface, Radiology Results 05/06/2020 10:30 PM CDT EXAMINATION: MRI BRAIN [...] or suspicious pericallosal lesions with a perivenular morphology.1M2RAD_PS01[facility] (COVID-19) RNA [Presence] in Respiratory specimen by SOREN with probe zdwecoett5984-25-56 12:31:16 Test Item Value Reference Range Interpretation Comments SARS-CoV-2 (COVID-19) RNA Not detected Not-Detected [Presence] in Respiratory specimen by SOREN with probe detection (test code = 55753-6) [facility]) 2020-02-22 21:37:00 Test Item Value Reference Range Interpretation Comments SARS-COV2/RT-PCR (test code = Positive Not Detected, Negative A A 6492932) SARS-COV-2 PERFORMING LAB CPL (test code = 6475022) CT, CHEST, WITHOUT MYKFJGNP8191-59-11 00:54:00Reason for exam:->cough, ?covidIs the patient ?->NoWhat [...] MDReport Verified Date/Time: 02/21/2020 00:54:38 PREGNANCY SCREEN, [id number] 00:28:00 Test Item Value Reference Range Interpretation Comments TEST URINE (BEAKER) (test Negative code = 583) CBC W/PLT COUNT & AUTO [id number] 22:46:00 Test Item Value Reference Range Interpretation [...] (BEAKER) (test code = 2801) LACTIC ACID, [id number] 22:30:00 Test Item Value Reference Range Interpretation Comments LACTATE BLOOD VENOUS 1.38 mmol/L 0.50-2.00 Specime n slightly (2) (BEAKER) (test hemolyzed code = 6091) Geophysicist ID - JUSTINBASIC METABOLIC JFUPN7424-09-72 22:10:00 Test Item Value Reference Range Interpretation [...] S NOT APPLICABLE FOR DIALYSIS PATIEN TS. Geophysicist ID - [id number] 22:09:00 Test Item Value Reference Range Interpretation [...] failure, acidosis, acute neurological disease, and persistent tachyarrhythmia.Geophysicist ID - [id number], CHEST, 1 VIEW, NON QQPG3936-12-06 20:58:00Reason for exam:->coughIs the patient ?- >NoShould this be performed at the bedside?->YesFINAL REPORT RAD, CHEST, 1 VIEW, NON DEPT CLINICAL HISTORY: cough TECHNIQUE: Single view of the chest. COMPARISON: October 12, 2019 IMPRESSION: There are no focal infiltrates or effusions. No pneumothorax. The cardiomediastinal silhouette is magnified by technique. The osseous structures appear intact. Signed: Aneudy Asencioort Verified Date/Time: 02/20/2020 20:58:56 SARS-COV2/RT-PCR ([facility])2020-02-06 03:25:00 Test Item Value Reference Range Interpretation Comments SARS-COV2/RT-PCR (test code = Positive Not Detected, Negative A A 5845227) SARS-COV-2 PERFORMING LAB CPL (test code = 7366744) URINALYSIS W/ [id number] 08:24:00 Test Item Value Reference Range Interpretation [...] 1663) SOURCE(BEAKER) (test code = 2795) SCREEN, [id number] 08:00:00 Test Item Value Reference Range Interpretation Comments TEST URINE (BEAKER) (test Negative code = 583) RAD, ABDOMEN/KUB 1 VIEW [id number] 07:21:00Reason for exam:->FEVERReason for exam:->DIARRHEAReason for exam:->EMESISFINAL REPORT RAD, ABDOMEN/KUB 1 VIEW AP CLINICAL INDICATION: FEVERDIARRHEAEMESIS COMPARISON: None TECHNIQUE: Single, frontal radiograph of the abdomen. FINDINGS: The bowel gas pattern is nonspecific, but nonobstructive. IUD is present. The regional skeleton is intact. IMPRESSION: Nonspecific, nonobstructive bowel gas pattern. Signed: Ling Jin MDReport Verified Date/Time: 02/04/2020 07:21:42 Reading Location: [facility] Radiology Reading Room COMPREHENSIVE METABOLIC [id number] 07:14:00 Test Item Value Reference Range Interpretation [...] S NOT APPLICABLE FOR DIALYSIS PATIEN TS. Geophysicist ID - [id number] 06:59:00 Test Item Value Reference Range Interpretation Comments LIPASE (BEAKER) (test code = 749) 9 U/L 6-51 Geophysicist ID - [id number] W/PLT COUNT & AUTO [id number] 06:41:00 Test Item Value Reference Range Interpretation [...] (test code = 2801) RAPID INFLUENZA A&B [id number] 19:09:00 Test Item Value Reference Range Interpretation Comments RAPID INFLUENZA A AG (BEAKER) Negative Negative, Inconclusive (test code = 1622) RAPID INFLUENZA B AG (BEAKER) Negative Negative, Inconclusive (test code = 1623) TROPONIN [id number] 18:51:00 Test Item Value Reference Range Interpretation [...] failure, acidosis, acute neurological disease, and persistent tachyarrhythmia.Geophysicist ID - JUSTINPREGNANCY SCREEN, [id number] 18:49:00 Test Item Value Reference Range Interpretation Comments TEST URINE (BEAKER) (test Negative code = 583) URINALYSIS W/ [id number] 18:49:00 Test Item Value Reference Range Interpretation [...] SOURCE(BEAKER) (test code = 2795) BASIC METABOLIC [id number] 18:44:00 Test Item Value Reference Range Interpretation [...] S NOT APPLICABLE FOR DIALYSIS PATIEN TS. Geophysicist ID - JUSTINRAD, CHEST, 1 VIEW, NON [id number] 18:41:00Reason for exam:->COUGHReason for exam:->SHORTNESS OF BREATHReason [...] on10/12/2019 06:41 PMCBC W/PLT COUNT & AUTO [id number] 18:29:00 Test Item Value Reference Range Interpretation [...] PERCENT (BEAKER) (test code = 2801) CT, [id number] 16:47:00Reason for exam:->FEVERReason for exam:->LEG PAINIs the [...] MDReport Verified Date/Time: 02/15/2019 16:47:32 Reading Location: [address] Transitional Reading Room URINALYSIS W/ [id number] 15:41:00 Test Item Value Reference Range Interpretation [...] code = 1663) SOURCE(BEAKER) (test code = 0595) SCREEN, [id number] 15:29:00 Test Item Value Reference Range Interpretation Comments TEST URINE (BEAKER) (test Negative code = 583) COMPREHENSIVE METABOLIC [id number] 15:26:00 Test Item Value Reference Range Interpretation [...] S NOT APPLICABLE FOR DIALYSIS PATIEN TS. [id number] 15:26:00 Test Item Value Reference Range Interpretation Comments LIPASE (BEAKER) (test code = 749) 20 U/L 6-51 [id number] 15:17:00 Test Item Value Reference Range Interpretation Comments AMYLASE (BEAKER) (test 42 U/L 30-110 Speci men slightly code = 349) hemolyzed CBC W/PLT COUNT & AUTO [id number] 15:03:00 Test Item Value Reference Range Interpretation [...] = 2801) RAD, KNEE, COMPLETE (4 VIEWS), [id number] 23:20:00Reason for exam:->MOTOR VEHICLE CRASHReason for exam:->HIP [...] Friedman Verified Date/Time: 11/19/2018 23:20:49 Reading Location: [facility] C0[facility] CT Body Reading Room RAD, KNEE, COMPLETE (4 VIEWS), [id number] 23:20:00Reason for exam:- >MOTOR VEHICLE CRASHReason for [...] Friedman Verified Date/Time: 11/19/2018 23:20:49 Reading Location: [facility] B1 C013Y CT Body Reading Room RAD, HIP, 2 VIEWS, [id number] 23:06:00Reason for exam:->MOTOR VEHICLE CRASHReason for exam:->HIP PAINReason for exam:->ARM INJURYReason for exam:->SHOULDER INJURYFINAL REPORT Right hip series, 2 views Clinical Indication: Right Hip Pain Impression: No evidence of acute fracture or traumatic malalignment. Note: If occult injury is suspected,consider CT. Signed: Brian Garibay MDReport Verified Date/Time: 11/19/2018 23:06:27 Reading Location:[address] Reading Room CT, [id number] 22:44:00Reason for exam:->MOTOR VEHICLE CRASHReason for exam:->HIP [...] of the abdomen and pelvis. Signed: Whit Alcantaraort Verified Date/Time: 11/19/2018 22:44:18 Reading Location: [facility] B1 C013W [facility] Reading Room RAD, SHOULDER, COMPLETE (MIN 2 VIEWS), [id number] 22:41:00Reason for exam:->MOTOR VEHICLE CRASHReason for exam:->HIP PAINReason for exam:->ARM INJURYReason for exam:->SHOULDER INJURYFINAL REPORT Right shoulder series - 3 VIEWS Clinical Indication: Right shoulder pain following traumatic injury. Impression: No evidence of acute fracture or traumatic malalignment. Signed: Brian Garibay MDReport Verified Date/Time: 11/19/2018 22:41:16 Reading Location: [address] Reading Room URINALYSIS W/ [id number] 21:44:00 Test Item Value Reference Range Interpretation [...] 1663) SOURCE(BEAKER) (test code = 2795) SCREEN, [id number] 21:40:00 Test Item Value Reference Range Interpretation Comments TEST URINE (BEAKER) (test Negative code = 583) URINALYSIS W/ [id number] 21:41:00 Test Item Value Reference Range Interpretation [...] 1663) SOURCE(BEAKER) (test code = 2795) SCREEN, [id number] 21:37:00 Test Item Value Reference Range Interpretation Comments TEST URINE (BEAKER) (test Negative code = 583) RAPID INFLUENZA A&B [id number] 20:49:00 Test Item Value Reference Range Interpretation Comments RAPID INFLUENZA A AG (BEAKER) Negative Negative, Inconclusive (test code = 1622) RAPID INFLUENZA B AG (BEAKER) Negative Negative, Inconclusive (test code = 1623) CT, [id number] 08:31:00Reason for exam:->ABDOMINAL PAINReason for exam:->FEVERReason for [...] in the abdomen and pelvis. Signed: Magy Barkereport Verified Date/Time: 07/31/2017 08:31:14 Reading Location: [facility] Diagnostic Imaging Reading Room - [place] [address] RAD, CHEST, 1 VIEW, NON [id number] 08:23:00Reason for exam:->ABDOMINAL PAINReason for exam:->FEVERReason for [...] Arellano Verified Date/Time: 07/31/2017 08:23:48 Reading Location: [address] Radiology Reading Room [id number] 08:07:00 Test Item Value Reference Range Interpretation Comments LIPASE (BEAKER) (test code = 749) 34 U/L 6-51 URINALYSIS W/ REFLEX URINE [id number] 08:06:00 Test Item Value Reference Range Interpretation [...] code = 1663) SOURCE(BEAKER) (test code = 6432) COMPREHENSIVE METABOLIC [id number] 08:06:00 Test Item Value Reference Range Interpretation [...] S NOT APPLICABLE FOR DIALYSIS PATIEN TS. [id number] 07:58:00 Test Item Value Reference Range Interpretation Comments AMYLASE (BEAKER) (test code = 349) 52 U/L 30-110 SCREEN, [id number] 07:52:00 Test Item Value Reference Range Interpretation Comments TEST URINE (BEAKER) (test Negative code = 583) CBC W/PLT COUNT & AUTO [id number] 07:48:00 Test Item Value Reference Range Interpretation [...] 0.00-0.20 (test code = 417) BASIC METABOLIC [id number] 21:32:00 Test Item Value Reference Range Interpretation [...] DIALYSIS PATIEN TS. LACTIC ACID, VENOUS, WHOLE [id number] 21:19:00 Test Item Value Reference Range Interpretation Comments LACTATE BLOOD VENOUS 0.9 mmol/L 0.5-2.2 Specime n slightly (2) (BEAKER) (test hemolyzed code = 2872) Effective 12/15/2015: Units/Reference Range ChangeNew: 0.5-2.2 mmol/L Previous: 5- 18 mg/dLCBC W/PLT COUNT & AUTO [id number] 21:07:00 Test Item Value Reference Range Interpretation [...] L 0.00-0.20 (test code = 417) SCREEN, [id number] 18:50:00 Test Item Value Reference Range Interpretation Comments TEST URINE (BEAKER) (test Negative code = 583) URINE [id number] 09:20:00 Test Item Value Reference Range Interpretation [...] = 480) CBC W/PLT COUNT & AUTO [id number] 16:52:00 Test Item Value Reference Range Interpretation [...] 0.00-0.20 (test code = 417) COMPREHENSIVE METABOLIC [id number] 16:28:00 Test Item Value Reference Range Interpretation [...] S NOT APPLICABLE FOR DIALYSIS PATIEN TS. [id number] 16:22:00 Test Item Value Reference Range Interpretation Comments LIPASE (BEAKER) (test code = 749) 26 U/L 6-51 URINALYSIS W/ REFLEX URINE [id number] 15:52:00 Test Item Value Reference Range Interpretation [...] 1663) SOURCE(BEAKER) (test code = 2795) SCREEN, [id number] 15:49:00 Test Item Value Reference Range Interpretation Comments TEST URINE (BEAKER) (test Negative code = 583) URINE AND [id number] 08:40:00 Test Item Value Reference Range Interpretation Comments UA Leuk Est (test code Trace *ABN*(02/13/16 3:40 = UA Leuk Est) AM) [facility] AND [id number] 08:40:00 Test Item Value Reference Range Interpretation Comments UA Nitrite (test code Negative (02/13/16 3:40 = UA Nitrite) AM) [facility] AND [id number] 08:40:00 Test Item Value Reference Range Interpretation Comments UA Urobilinogen (test code = UA 0.2 0.1-1.0 Urobilinogen) [facility] AND [id number] 08:40:00 Test Item Value Reference Range Interpretation Comments UA Ketones (test code Negative *NA*(02/13/16 = UA Ketones) 3:40 AM) [facility] AND [id number] 08:40:00 Test Item Value Reference Range Interpretation Comments UA Glucose (test code Negative (02/13/16 3:40 = UA Glucose) AM) [facility] AND [id number] 08:40:00 Test Item Value Reference Range Interpretation Comments UA Blood (test code = Large *ABN*(02/13/16 UA Blood) 3:40 AM) [facility] AND [id number] 08:40:00 Test Item Value Reference Range Interpretation Comments UA Bili (test code = Negative *NA*(02/13/16 UA Bili) 3:40 AM) [facility] AND [id number] 08:40:00 Test Item Value Reference Range Interpretation Comments UA Protein (test code = UA Protein) 30 mg/dL [facility] AND [id number] 08:40:00 Test Item Value Reference Range Interpretation Comments UA Spec Grav (test code = UA Spec 1.015 1 Grav) [facility] AND [id number] 08:40:00 Test Item Value Reference Range Interpretation Comments UA pH (test code = UA pH) 7.0 1 5.0-8.0 [facility] AND [id number] 08:40:00 Test Item Value Reference Range Interpretation Comments UA Color (test code = Red *ABN*(02/13/16 3:40 UA Color) AM) [facility] AND [id number] 08:40:00 Test Item Value Reference Range Interpretation Comments UA Turbidity (test code Bloody *ABN*(02/13/16 = UA Turbidity) 3:40 AM) [facility] AND [id number] 08:40:00 Test Item Value Reference Range Interpretation Comments UA Bacteria (test code = UA Occasional /HPF Bacteria) [facility] AND [id number] 08:40:00 Test Item Value Reference Range Interpretation Comments UA RBC (test Packed See_Comment [Automated mes shirley] code = UA RBC) *ABN*(02/13/16 3:40 The syst em which AM) generated this result transmitted ref erence range: <=2. The reference range was not used to int erpret this result as normal/abnormal . [facility] AND [id number] 08:40:00 Test Item Value Reference Range Interpretation Comments UA WBC (test code = UA WBC) 3-5 /HPF [facility] AND [id number] 08:40:00 Test Item Value Reference Range Interpretation Comments UA Sq Epi (test code = UA Sq Epi) Rare /LPF [facility] AND [id number] 08:40:00 Test Item Value Reference Range Interpretation Comments UA Leuk Est (test code Trace *ABN*(02/13/16 3:40 = UA Leuk Est) AM) [facility] AND [id number] 08:40:00 Test Item Value Reference Range Interpretation Comments UA Nitrite (test code Negative (02/13/16 3:40 = UA Nitrite) AM) [facility] AND [id number] 08:40:00 Test Item Value Reference Range Interpretation Comments UA Urobilinogen (test code = UA 0.2 0.1-1.0 Urobilinogen) [facility] AND [id number] 08:40:00 Test Item Value Reference Range Interpretation Comments UA Ketones (test code Negative *NA*(02/13/16 = UA Ketones) 3:40 AM) [facility] AND [id number] 08:40:00 Test Item Value Reference Range Interpretation Comments UA Glucose (test code Negative (02/13/16 3:40 = UA Glucose) AM) [facility] AND [id number] 08:40:00 Test Item Value Reference Range Interpretation Comments UA Blood (test code = Large *ABN*(02/13/16 UA Blood) 3:40 AM) [facility] AND [id number] 08:40:00 Test Item Value Reference Range Interpretation Comments UA Bili (test code = Negative *NA*(02/13/16 UA Bili) 3:40 AM) [facility] AND [id number] 08:40:00 Test Item Value Reference Range Interpretation Comments UA Protein (test code = UA Protein) 30 mg/dL [facility] AND [id number] 08:40:00 Test Item Value Reference Range Interpretation Comments UA Spec Grav (test code = UA Spec 1.015 1 Grav) [facility] AND [id number] 08:40:00 Test Item Value Reference Range Interpretation Comments UA pH (test code = UA pH) 7.0 1 5.0-8.0 [facility] AND [id number] 08:40:00 Test Item Value Reference Range Interpretation Comments UA Color (test code = Red *ABN*(02/13/16 3:40 UA Color) AM) [facility] AND [id number] 08:40:00 Test Item Value Reference Range Interpretation Comments UA Turbidity (test code Bloody *ABN*(02/13/16 = UA Turbidity) 3:40 AM) [facility] AND [id number] 08:40:00 Test Item Value Reference Range Interpretation Comments UA Bacteria (test code = UA Occasional /HPF Bacteria) [facility] AND [id number] 08:40:00 Test Item Value Reference Range Interpretation Comments UA RBC (test Packed See_Comment [Automated mes shirley] code = UA RBC) *ABN*(02/13/16 3:40 The syst em which AM) generated this result transmitted ref erence range: <=2. The reference range was not used to int erpret this result as normal/abnormal . [facility] AND [id number] 08:40:00 Test Item Value Reference Range Interpretation Comments UA WBC (test code = UA WBC) 3-5 /HPF [facility] AND [id number] 08:40:00 Test Item Value Reference Range Interpretation Comments UA Sq Epi (test code = UA Sq Epi) Rare /LPF [facility] AND [id number] 08:40:00 Test Item Value Reference Range Interpretation Comments UA Leuk Est (test code Trace *ABN*(02/13/16 3:40 = UA Leuk Est) AM) [facility] AND [id number] 08:40:00 Test Item Value Reference Range Interpretation Comments UA Nitrite (test code Negative (02/13/16 3:40 = UA Nitrite) AM) [facility] AND [id number] 08:40:00 Test Item Value Reference Range Interpretation Comments UA Urobilinogen (test code = UA 0.2 0.1-1.0 Urobilinogen) [facility] AND [id number] 08:40:00 Test Item Value Reference Range Interpretation Comments UA Ketones (test code Negative *NA*(02/13/16 = UA Ketones) 3:40 AM) [facility] AND [id number] 08:40:00 Test Item Value Reference Range Interpretation Comments UA Glucose (test code Negative (02/13/16 3:40 = UA Glucose) AM) [facility] AND [id number] 08:40:00 Test Item Value Reference Range Interpretation Comments UA Blood (test code = Large *ABN*(02/13/16 UA Blood) 3:40 AM) [facility] AND [id number] 08:40:00 Test Item Value Reference Range Interpretation Comments UA Bili (test code = Negative *NA*(02/13/16 UA Bili) 3:40 AM) [facility] AND [id number] 08:40:00 Test Item Value Reference Range Interpretation Comments UA Protein (test code = UA Protein) 30 mg/dL [facility] AND [id number] 08:40:00 Test Item Value Reference Range Interpretation Comments UA Spec Grav (test code = UA Spec 1.015 1 Grav) [facility] AND [id number] 08:40:00 Test Item Value Reference Range Interpretation Comments UA pH (test code = UA pH) 7.0 1 5.0-8.0 [facility] AND [id number] 08:40:00 Test Item Value Reference Range Interpretation Comments UA Color (test code = Red *ABN*(02/13/16 3:40 UA Color) AM) [facility] AND [id number] 08:40:00 Test Item Value Reference Range Interpretation Comments UA Turbidity (test code Bloody *ABN*(02/13/16 = UA Turbidity) 3:40 AM) [facility] AND [id number] 08:40:00 Test Item Value Reference Range Interpretation Comments UA Bacteria (test code = UA Occasional /HPF Bacteria) [facility] AND [id number] 08:40:00 Test Item Value Reference Range Interpretation Comments UA RBC (test Packed See_Comment [Automated mes shirley] code = UA RBC) *ABN*(02/13/16 3:40 The syst em which AM) generated this result transmitted ref erence range: <=2. The reference range was not used to int erpret this result as normal/abnormal . [facility] AND [id number] 08:40:00 Test Item Value Reference Range Interpretation Comments UA WBC (test code = UA WBC) 3-5 /HPF [facility] AND [id number] 08:40:00 Test Item Value Reference Range Interpretation Comments UA Sq Epi (test code = UA Sq Epi) Rare /LPF [facility] AND [id number] 08:40:00 Test Item Value Reference Range Interpretation Comments UA Leuk Est (test code Trace *ABN*(02/13/16 3:40 = UA Leuk Est) AM) [facility] AND [id number] 08:40:00 Test Item Value Reference Range Interpretation Comments UA Nitrite (test code Negative (02/13/16 3:40 = UA Nitrite) AM) [facility] AND [id number] 08:40:00 Test Item Value Reference Range Interpretation Comments UA Urobilinogen (test code = UA 0.2 0.1-1.0 Urobilinogen) [facility] AND [id number] 08:40:00 Test Item Value Reference Range Interpretation Comments UA Ketones (test code Negative *NA*(02/13/16 = UA Ketones) 3:40 AM) [facility] AND [id number] 08:40:00 Test Item Value Reference Range Interpretation Comments UA Glucose (test code Negative (02/13/16 3:40 = UA Glucose) AM) [facility] AND [id number] 08:40:00 Test Item Value Reference Range Interpretation Comments UA Blood (test code = Large *ABN*(02/13/16 UA Blood) 3:40 AM) [facility] AND [id number] 08:40:00 Test Item Value Reference Range Interpretation Comments UA Bili (test code = Negative *NA*(02/13/16 UA Bili) 3:40 AM) [facility] AND [id number] 08:40:00 Test Item Value Reference Range Interpretation Comments UA Protein (test code = UA Protein) 30 mg/dL [facility] AND [id number] 08:40:00 Test Item Value Reference Range Interpretation Comments UA Spec Grav (test code = UA Spec 1.015 1 Grav) [facility] AND [id number] 08:40:00 Test Item Value Reference Range Interpretation Comments UA pH (test code = UA pH) 7.0 1 5.0-8.0 [facility] AND [id number] 08:40:00 Test Item Value Reference Range Interpretation Comments UA Color (test code = Red *ABN*(02/13/16 3:40 UA Color) AM) [facility] AND [id number] 08:40:00 Test Item Value Reference Range Interpretation Comments UA Turbidity (test code Bloody *ABN*(02/13/16 = UA Turbidity) 3:40 AM) [facility] AND [id number] 08:40:00 Test Item Value Reference Range Interpretation Comments UA Bacteria (test code = UA Occasional /HPF Bacteria) [facility] AND [id number] 08:40:00 Test Item Value Reference Range Interpretation Comments UA RBC (test Packed See_Comment [Automated mes shirley] code = UA RBC) *ABN*(02/13/16 3:40 The syst em which AM) generated this result transmitted ref erence range: <=2. The reference range was not used to int erpret this result as normal/abnormal . [facility] AND [id number] 08:40:00 Test Item Value Reference Range Interpretation Comments UA WBC (test code = UA WBC) 3-5 /HPF [facility] AND [id number] 08:40:00 Test Item Value Reference Range Interpretation Comments UA Sq Epi (test code = UA Sq Epi) Rare /LPF [facility] AND [id number] 08:40:00 Test Item Value Reference Range Interpretation Comments UA Leuk Est (test code Trace *ABN*(02/13/16 3:40 = UA Leuk Est) AM) [facility] AND [id number] 08:40:00 Test Item Value Reference Range Interpretation Comments UA Nitrite (test code Negative (02/13/16 3:40 = UA Nitrite) AM) [facility] AND [id number] 08:40:00 Test Item Value Reference Range Interpretation Comments UA Urobilinogen (test code = UA 0.2 0.1-1.0 Urobilinogen) [facility] AND [id number] 08:40:00 Test Item Value Reference Range Interpretation Comments UA Ketones (test code Negative *NA*(02/13/16 = UA Ketones) 3:40 AM) [facility] AND [id number] 08:40:00 Test Item Value Reference Range Interpretation Comments UA Glucose (test code Negative (02/13/16 3:40 = UA Glucose) AM) [facility] AND [id number] 08:40:00 Test Item Value Reference Range Interpretation Comments UA Blood (test code = Large *ABN*(02/13/16 UA Blood) 3:40 AM) [facility] AND [id number] 08:40:00 Test Item Value Reference Range Interpretation Comments UA Bili (test code = Negative *NA*(02/13/16 UA Bili) 3:40 AM) [facility] [id number] 08:40:00 Test Item Value Reference Range Interpretation Comments UA Protein (test code = UA Protein) 30 mg/dL [facility] AND [id number] 08:40:00 Test Item Value Reference Range Interpretation Comments UA Spec Grav (test code = UA Spec 1.015 1 Grav) [facility] AND [id number] 08:40:00 Test Item Value Reference Range Interpretation Comments UA pH (test code = UA pH) 7.0 1 5.0-8.0 [facility] AND [id number] 08:40:00 Test Item Value Reference Range Interpretation Comments UA Color (test code = Red *ABN*(02/13/16 3:40 UA Color) AM) [facility] AND [id number] 08:40:00 Test Item Value Reference Range Interpretation Comments UA Turbidity (test code Bloody *ABN*(02/13/16 = UA Turbidity) 3:40 AM) [facility] AND [id number] 08:40:00 Test Item Value Reference Range Interpretation Comments UA Bacteria (test code = UA Occasional /HPF Bacteria) [facility] AND [id number] 08:40:00 Test Item Value Reference Range Interpretation Comments UA RBC (test Packed See_Comment [Automated mes shirley] code = UA RBC) *ABN*(02/13/16 3:40 The syst em which AM) generated this result transmitted ref erence range: <=2. The reference range was not used to int erpret this result as normal/abnormal . [facility] AND [id number] 08:40:00 Test Item Value Reference Range Interpretation Comments UA WBC (test code = UA WBC) 3-5 /HPF [facility] AND [id number] 08:40:00 Test Item Value Reference Range Interpretation Comments UA Sq Epi (test code = UA Sq Epi) Rare /LPF [facility] AND [id number] 08:40:00 Test Item Value Reference Range Interpretation Comments UA Leuk Est (test code Trace *ABN*(02/13/16 3:40 = UA Leuk Est) AM) [facility] AND [id number] 08:40:00 Test Item Value Reference Range Interpretation Comments UA Nitrite (test code Negative (02/13/16 3:40 = UA Nitrite) AM) [facility] AND [id number] 08:40:00 Test Item Value Reference Range Interpretation Comments UA Urobilinogen (test code = UA 0.2 0.1-1.0 Urobilinogen) [facility] AND [id number] 08:40:00 Test Item Value Reference Range Interpretation Comments UA Ketones (test code Negative *NA*(02/13/16 = UA Ketones) 3:40 AM) [facility] AND [id number] 08:40:00 Test Item Value Reference Range Interpretation Comments UA Glucose (test code Negative (02/13/16 3:40 = UA Glucose) AM) [facility] AND [id number] 08:40:00 Test Item Value Reference Range Interpretation Comments UA Blood (test code = Large *ABN*(02/13/16 UA Blood) 3:40 AM) [facility] AND [id number] 08:40:00 Test Item Value Reference Range Interpretation Comments UA Bili (test code = Negative *NA*(02/13/16 UA Bili) 3:40 AM) [facility] AND [id number] 08:40:00 Test Item Value Reference Range Interpretation Comments UA Protein (test code = UA Protein) 30 mg/dL [facility] AND [id number] 08:40:00 Test Item Value Reference Range Interpretation Comments UA Spec Grav (test code = UA Spec 1.015 1 Grav) [facility] AND [id number] 08:40:00 Test Item Value Reference Range Interpretation Comments UA pH (test code = UA pH) 7.0 1 5.0-8.0 [facility] AND [id number] 08:40:00 Test Item Value Reference Range Interpretation Comments UA Color (test code = Red *ABN*(02/13/16 3:40 UA Color) AM) [facility] [id number] 08:40:00 Test Item Value Reference Range Interpretation Comments UA Turbidity (test code Bloody *ABN*(02/13/16 = UA Turbidity) 3:40 AM) [facility] [id number] 08:40:00 Test Item Value Reference Range Interpretation Comments UA Bacteria (test code = UA Occasional /HPF Bacteria) [facility] [id number] 08:40:00 Test Item Value Reference Range Interpretation Comments UA RBC (test Packed See_Comment [Automated mes shirley] code = UA RBC) *ABN*(02/13/16 3:40 The syst em which AM) generated this result transmitted ref erence range: <=2. The reference range was not used to int erpret this result as normal/abnormal . [facility] [id number] 08:40:00 Test Item Value Reference Range Interpretation Comments UA WBC (test code = UA WBC) 3-5 /HPF [facility] [id number] 08:40:00 Test Item Value Reference Range Interpretation Comments UA Sq Epi (test code = UA Sq Epi) Rare /LPF [facility] [id number] 08:40:00 Test Item Value Reference Range Interpretation Comments UA Leuk Est (test code Trace *ABN*(02/13/16 3:40 = UA Leuk Est) AM) [facility] [id number] 08:40:00 Test Item Value Reference Range Interpretation Comments UA Nitrite (test code Negative (02/13/16 3:40 = UA Nitrite) AM) [facility] [id number] 08:40:00 Test Item Value Reference Range Interpretation Comments UA Urobilinogen (test code = UA 0.2 0.1-1.0 Urobilinogen) [facility] [id number] 08:40:00 Test Item Value Reference Range Interpretation Comments UA Ketones (test code Negative *NA*(02/13/16 = UA Ketones) 3:40 AM) [facility] [id number] 08:40:00 Test Item Value Reference Range Interpretation Comments UA Glucose (test code Negative (02/13/16 3:40 = UA Glucose) AM) [facility] [id number] 08:40:00 Test Item Value Reference Range Interpretation Comments UA Blood (test code = Large *ABN*(02/13/16 UA Blood) 3:40 AM) [facility] [id number] 08:40:00 Test Item Value Reference Range Interpretation Comments UA Bili (test code = Negative *NA*(02/13/16 UA Bili) 3:40 AM) [facility] [id number] 08:40:00 Test Item Value Reference Range Interpretation Comments UA Protein (test code = UA Protein) 30 mg/dL [facility] [id number] 08:40:00 Test Item Value Reference Range Interpretation Comments UA Spec Grav (test code = UA Spec 1.015 1 Grav) [facility] [id number] 08:40:00 Test Item Value Reference Range Interpretation Comments UA pH (test code = UA pH) 7.0 1 5.0-8.0 [facility] [id number] 08:40:00 Test Item Value Reference Range Interpretation Comments UA Color (test code = Red *ABN*(02/13/16 3:40 UA Color) AM) [facility] [id number] 08:40:00 Test Item Value Reference Range Interpretation Comments UA Turbidity (test code Bloody *ABN*(02/13/16 = UA Turbidity) 3:40 AM) [facility] [id number] 08:40:00 Test Item Value Reference Range Interpretation Comments UA Bacteria (test code = UA Occasional /HPF Bacteria) [facility] [id number] 08:40:00 Test Item Value Reference Range Interpretation Comments UA RBC (test Packed See_Comment [Automated mes shirley] code = UA RBC) *ABN*(02/13/16 3:40 The syst em which AM) generated this result transmitted ref erence range: <=2. The reference range was not used to int erpret this result as normal/abnormal . [facility] [id number] 08:40:00 Test Item Value Reference Range Interpretation Comments UA WBC (test code = UA WBC) 3-5 /HPF [facility] [id number] 08:40:00 Test Item Value Reference Range Interpretation Comments UA Sq Epi (test code = UA Sq Epi) Rare /LPF [facility] [id number] 08:40:00 Test Item Value Reference Range Interpretation Comments UA Leuk Est (test code Trace *ABN*(02/13/16 3:40 = UA Leuk Est) AM) [facility] [id number] 08:40:00 Test Item Value Reference Range Interpretation Comments UA Nitrite (test code Negative (02/13/16 3:40 = UA Nitrite) AM) [facility] [id number] 08:40:00 Test Item Value Reference Range Interpretation Comments UA Urobilinogen (test code = UA 0.2 0.1-1.0 Urobilinogen) [facility] [id number] 08:40:00 Test Item Value Reference Range Interpretation Comments UA Ketones (test code Negative *NA*(02/13/16 = UA Ketones) 3:40 AM) [facility] [id number] 08:40:00 Test Item Value Reference Range Interpretation Comments UA Glucose (test code Negative (02/13/16 3:40 = UA Glucose) AM) [facility] [id number] 08:40:00 Test Item Value Reference Range Interpretation Comments UA Blood (test code = Large *ABN*(02/13/16 UA Blood) 3:40 AM) [facility] [id number] 08:40:00 Test Item Value Reference Range Interpretation Comments UA Bili (test code = Negative *NA*(02/13/16 UA Bili) 3:40 AM) [facility] [id number] 08:40:00 Test Item Value Reference Range Interpretation Comments UA Protein (test code = UA Protein) 30 mg/dL [facility] [id number] 08:40:00 Test Item Value Reference Range Interpretation Comments UA Spec Grav (test code = UA Spec 1.015 1 Grav) [facility] [id number] 08:40:00 Test Item Value Reference Range Interpretation Comments UA pH (test code = UA pH) 7.0 1 5.0-8.0 [facility] [id number] 08:40:00 Test Item Value Reference Range Interpretation Comments UA Color (test code = Red *ABN*(02/13/16 3:40 UA Color) AM) [facility] [id number] 08:40:00 Test Item Value Reference Range Interpretation Comments UA Turbidity (test code Bloody *ABN*(02/13/16 = UA Turbidity) 3:40 AM) [facility] [id number] 08:40:00 Test Item Value Reference Range Interpretation Comments UA Bacteria (test code = UA Occasional /HPF Bacteria) [facility] [id number] 08:40:00 Test Item Value Reference Range Interpretation Comments UA RBC (test Packed See_Comment [Automated mes shirley] code = UA RBC) *ABN*(02/13/16 3:40 The syst em which AM) generated this result transmitted ref erence range: <=2. The reference range was not used to int erpret this result as normal/abnormal . [facility] [id number] 08:40:00 Test Item Value Reference Range Interpretation Comments UA WBC (test code = UA WBC) 3-5 /HPF [facility] [id number] 08:40:00 Test Item Value Reference Range Interpretation Comments UA Sq Epi (test code = UA Sq Epi) Rare /LPF [facility] [id number] 08:40:00 Test Item Value Reference Range Interpretation Comments UA Leuk Est (test code Trace *ABN*(02/13/16 3:40 = UA Leuk Est) AM) [facility] [id number] 08:40:00 Test Item Value Reference Range Interpretation Comments UA Nitrite (test code Negative (02/13/16 3:40 = UA Nitrite) AM) [facility] [id number] 08:40:00 Test Item Value Reference Range Interpretation Comments UA Urobilinogen (test code = UA 0.2 0.1-1.0 Urobilinogen) [facility] [id number] 08:40:00 Test Item Value Reference Range Interpretation Comments UA Ketones (test code Negative *NA*(02/13/16 = UA Ketones) 3:40 AM) [facility] [id number] 08:40:00 Test Item Value Reference Range Interpretation Comments UA Glucose (test code Negative (02/13/16 3:40 = UA Glucose) AM) [facility] [id number] 08:40:00 Test Item Value Reference Range Interpretation Comments UA Blood (test code = Large *ABN*(02/13/16 UA Blood) 3:40 AM) [facility] [id number] 08:40:00 Test Item Value Reference Range Interpretation Comments UA Bili (test code = Negative *NA*(02/13/16 UA Bili) 3:40 AM) [facility] [id number] 08:40:00 Test Item Value Reference Range Interpretation Comments UA Protein (test code = UA Protein) 30 mg/dL [facility] [id number] 08:40:00 Test Item Value Reference Range Interpretation Comments UA Spec Grav (test code = UA Spec 1.015 1 Grav) [facility] [id number] 08:40:00 Test Item Value Reference Range Interpretation Comments UA pH (test code = UA pH) 7.0 1 5.0-8.0 [facility] [id number] 08:40:00 Test Item Value Reference Range Interpretation Comments UA Color (test code = Red *ABN*(02/13/16 3:40 UA Color) AM) [facility] [id number] 08:40:00 Test Item Value Reference Range Interpretation Comments UA Turbidity (test code Bloody *ABN*(02/13/16 = UA Turbidity) 3:40 AM) [facility] [id number] 08:40:00 Test Item Value Reference Range Interpretation Comments UA Bacteria (test code = UA Occasional /HPF Bacteria) [facility] [id number] 08:40:00 Test Item Value Reference Range Interpretation Comments UA RBC (test Packed See_Comment [Automated mes shirley] code = UA RBC) *ABN*(02/13/16 3:40 The syst em which AM) generated this result transmitted ref erence range: <=2. The reference range was not used to int erpret this result as normal/abnormal . [facility] [id number] 08:40:00 Test Item Value Reference Range Interpretation Comments UA WBC (test code = UA WBC) 3-5 /HPF [facility] [id number] 08:40:00 Test Item Value Reference Range Interpretation Comments UA Sq Epi (test code = UA Sq Epi) Rare /LPF [facility] [id number] 08:40:00 Test Item Value Reference Range Interpretation Comments UA Leuk Est (test code Trace *ABN*(02/13/16 3:40 = UA Leuk Est) AM) [facility] [id number] 08:40:00 Test Item Value Reference Range Interpretation Comments UA Nitrite (test code Negative (02/13/16 3:40 = UA Nitrite) AM) [facility] [id number] 08:40:00 Test Item Value Reference Range Interpretation Comments UA Urobilinogen (test code = UA 0.2 0.1-1.0 Urobilinogen) [facility] [id number] 08:40:00 Test Item Value Reference Range Interpretation Comments UA Ketones (test code Negative *NA*(02/13/16 = UA Ketones) 3:40 AM) [facility] [id number] 08:40:00 Test Item Value Reference Range Interpretation Comments UA Glucose (test code Negative (02/13/16 3:40 = UA Glucose) AM) [facility] [id number] 08:40:00 Test Item Value Reference Range Interpretation Comments UA Blood (test code = Large *ABN*(02/13/16 UA Blood) 3:40 AM) [facility] [id number] 08:40:00 Test Item Value Reference Range Interpretation Comments UA Bili (test code = Negative *NA*(02/13/16 UA Bili) 3:40 AM) [facility] [id number] 08:40:00 Test Item Value Reference Range Interpretation Comments UA Protein (test code = UA Protein) 30 mg/dL [facility] [id number] 08:40:00 Test Item Value Reference Range Interpretation Comments UA Spec Grav (test code = UA Spec 1.015 1 Grav) [facility] [id number] 08:40:00 Test Item Value Reference Range Interpretation Comments UA pH (test code = UA pH) 7.0 1 5.0-8.0 [facility] [id number] 08:40:00 Test Item Value Reference Range Interpretation Comments UA Color (test code = Red *ABN*(02/13/16 3:40 UA Color) AM) [facility] [id number] 08:40:00 Test Item Value Reference Range Interpretation Comments UA Turbidity (test code Bloody *ABN*(02/13/16 = UA Turbidity) 3:40 AM) [facility] [id number] 08:40:00 Test Item Value Reference Range Interpretation Comments UA Bacteria (test code = UA Occasional /HPF Bacteria) [facility] [id number] 08:40:00 Test Item Value Reference Range Interpretation Comments UA RBC (test Packed See_Comment [Automated mes shirley] code = UA RBC) *ABN*(02/13/16 3:40 The syst em which AM) generated this result transmitted ref erence range: <=2. The reference range was not used to int erpret this result as normal/abnormal . [facility] [id number] 08:40:00 Test Item Value Reference Range Interpretation Comments UA WBC (test code = UA WBC) 3-5 /HPF [facility] [id number] 08:40:00 Test Item Value Reference Range Interpretation Comments UA Sq Epi (test code = UA Sq Epi) Rare /LPF [facility] [id number] 08:40:00 Test Item Value Reference Range Interpretation Comments UA Leuk Est (test code Trace *ABN*(02/13/16 3:40 = UA Leuk Est) AM) [facility] [id number] 08:40:00 Test Item Value Reference Range Interpretation Comments UA Nitrite (test code Negative (02/13/16 3:40 = UA Nitrite) AM) [facility] [id number] 08:40:00 Test Item Value Reference Range Interpretation Comments UA Urobilinogen (test code = UA 0.2 0.1-1.0 Urobilinogen) [facility] [id number] 08:40:00 Test Item Value Reference Range Interpretation Comments UA Ketones (test code Negative *NA*(02/13/16 = UA Ketones) 3:40 AM) [facility] [id number] 08:40:00 Test Item Value Reference Range Interpretation Comments UA Glucose (test code Negative (02/13/16 3:40 = UA Glucose) AM) [facility] [id number] 08:40:00 Test Item Value Reference Range Interpretation Comments UA Blood (test code = Large *ABN*(02/13/16 UA Blood) 3:40 AM) [facility] [id number] 08:40:00 Test Item Value Reference Range Interpretation Comments UA Bili (test code = Negative *NA*(02/13/16 UA Bili) 3:40 AM) [facility] [id number] 08:40:00 Test Item Value Reference Range Interpretation Comments UA Protein (test code = UA Protein) 30 mg/dL [facility] [id number] 08:40:00 Test Item Value Reference Range Interpretation Comments UA Spec Grav (test code = UA Spec 1.015 1 Grav) [facility] [id number] 08:40:00 Test Item Value Reference Range Interpretation Comments UA pH (test code = UA pH) 7.0 1 5.0-8.0 [facility] [id number] 08:40:00 Test Item Value Reference Range Interpretation Comments UA Color (test code = Red *ABN*(02/13/16 3:40 UA Color) AM) [facility] [id number] 08:40:00 Test Item Value Reference Range Interpretation Comments UA Turbidity (test code Bloody *ABN*(02/13/16 = UA Turbidity) 3:40 AM) [facility] [id number] 08:40:00 Test Item Value Reference Range Interpretation Comments UA Bacteria (test code = UA Occasional /HPF Bacteria) [facility] [id number] 08:40:00 Test Item Value Reference Range Interpretation Comments UA RBC (test Packed See_Comment [Automated mes shirley] code = UA RBC) *ABN*(02/13/16 3:40 The syst em which AM) generated this result transmitted ref erence range: <=2. The reference range was not used to int erpret this result as normal/abnormal . [facility] [id number] 08:40:00 Test Item Value Reference Range Interpretation Comments UA WBC (test code = UA WBC) 3-5 /HPF [facility] [id number] 08:40:00 Test Item Value Reference Range Interpretation Comments UA Sq Epi (test code = UA Sq Epi) Rare /LPF [facility] [id number] 08:40:00 Test Item Value Reference Range Interpretation Comments UA Leuk Est (test code Trace *ABN*(02/13/16 3:40 = UA Leuk Est) AM) [facility] [id number] 08:40:00 Test Item Value Reference Range Interpretation Comments UA Nitrite (test code Negative (02/13/16 3:40 = UA Nitrite) AM) [facility] [id number] 08:40:00 Test Item Value Reference Range Interpretation Comments UA Urobilinogen (test code = UA 0.2 0.1-1.0 Urobilinogen) [facility] [id number] 08:40:00 Test Item Value Reference Range Interpretation Comments UA Ketones (test code Negative *NA*(02/13/16 = UA Ketones) 3:40 AM) [facility] [id number] 08:40:00 Test Item Value Reference Range Interpretation Comments UA Glucose (test code Negative (02/13/16 3:40 = UA Glucose) AM) [facility] [id number] 08:40:00 Test Item Value Reference Range Interpretation Comments UA Blood (test code = Large *ABN*(02/13/16 UA Blood) 3:40 AM) [facility] [id number] 08:40:00 Test Item Value Reference Range Interpretation Comments UA Bili (test code = Negative *NA*(02/13/16 UA Bili) 3:40 AM) [facility] [id number] 08:40:00 Test Item Value Reference Range Interpretation Comments UA Protein (test code = UA Protein) 30 mg/dL [facility] [id number] 08:40:00 Test Item Value Reference Range Interpretation Comments UA Spec Grav (test code = UA Spec 1.015 1 Grav) [facility] [id number] 08:40:00 Test Item Value Reference Range Interpretation Comments UA pH (test code = UA pH) 7.0 1 5.0-8.0 [facility] [id number] 08:40:00 Test Item Value Reference Range Interpretation Comments UA Color (test code = Red *ABN*(02/13/16 3:40 UA Color) AM) [facility] [id number] 08:40:00 Test Item Value Reference Range Interpretation Comments UA Turbidity (test code Bloody *ABN*(02/13/16 = UA Turbidity) 3:40 AM) [facility] [id number] 08:40:00 Test Item Value Reference Range Interpretation Comments UA Bacteria (test code = UA Occasional /HPF Bacteria) [facility] [id number] 08:40:00 Test Item Value Reference Range Interpretation Comments UA RBC (test Packed See_Comment [Automated mes shirley] code = UA RBC) *ABN*(02/13/16 3:40 The syst em which AM) generated this result transmitted ref erence range: <=2. The reference range was not used to int erpret this result as normal/abnormal . [facility] [id number] 08:40:00 Test Item Value Reference Range Interpretation Comments UA WBC (test code = UA WBC) 3-5 /HPF [facility] [id number] 08:40:00 Test Item Value Reference Range Interpretation Comments UA Sq Epi (test code = UA Sq Epi) Rare /LPF [facility] [id number] 08:40:00 Test Item Value Reference Range Interpretation Comments UA Leuk Est (test code Trace *ABN*(02/13/16 3:40 = UA Leuk Est) AM) [facility] [id number] 08:40:00 Test Item Value Reference Range Interpretation Comments UA Nitrite (test code Negative (02/13/16 3:40 = UA Nitrite) AM) [facility] [id number] 08:40:00 Test Item Value Reference Range Interpretation Comments UA Urobilinogen (test code = UA 0.2 0.1-1.0 Urobilinogen) [facility] [id number] 08:40:00 Test Item Value Reference Range Interpretation Comments UA Ketones (test code Negative *NA*(02/13/16 = UA Ketones) 3:40 AM) [facility] [id number] 08:40:00 Test Item Value Reference Range Interpretation Comments UA Glucose (test code Negative (02/13/16 3:40 = UA Glucose) AM) [facility] [id number] 08:40:00 Test Item Value Reference Range Interpretation Comments UA Blood (test code = Large *ABN*(02/13/16 UA Blood) 3:40 AM) [facility] [id number] 08:40:00 Test Item Value Reference Range Interpretation Comments UA Bili (test code = Negative *NA*(02/13/16 UA Bili) 3:40 AM) [facility] [id number] 08:40:00 Test Item Value Reference Range Interpretation Comments UA Protein (test code = UA Protein) 30 mg/dL [facility] [id number] 08:40:00 Test Item Value Reference Range Interpretation Comments UA Spec Grav (test code = UA Spec 1.015 1 Grav) [facility] [id number] 08:40:00 Test Item Value Reference Range Interpretation Comments UA pH (test code = UA pH) 7.0 1 5.0-8.0 [facility] [id number] 08:40:00 Test Item Value Reference Range Interpretation Comments UA Color (test code = Red *ABN*(02/13/16 3:40 UA Color) AM) [facility] [id number] 08:40:00 Test Item Value Reference Range Interpretation Comments UA Turbidity (test code Bloody *ABN*(02/13/16 = UA Turbidity) 3:40 AM) [facility] [id number] 08:40:00 Test Item Value Reference Range Interpretation Comments UA Bacteria (test code = UA Occasional /HPF Bacteria) [facility] [id number] 08:40:00 Test Item Value Reference Range Interpretation Comments UA RBC (test Packed See_Comment [Automated mes shirley] code = UA RBC) *ABN*(02/13/16 3:40 The syst em which AM) generated this result transmitted ref erence range: <=2. The reference range was not used to int erpret this result as normal/abnormal . [facility] [id number] 08:40:00 Test Item Value Reference Range Interpretation Comments UA WBC (test code = UA WBC) 3-5 /HPF [facility] [id number] 08:40:00 Test Item Value Reference Range Interpretation Comments UA Sq Epi (test code = UA Sq Epi) Rare /LPF [facility] [id number] 08:40:00 Test Item Value Reference Range Interpretation Comments UA Leuk Est (test code Trace *ABN*(02/13/16 3:40 = UA Leuk Est) AM) [facility] [id number] 08:40:00 Test Item Value Reference Range Interpretation Comments UA Nitrite (test code Negative (02/13/16 3:40 = UA Nitrite) AM) [facility] [id number] 08:40:00 Test Item Value Reference Range Interpretation Comments UA Urobilinogen (test code = UA 0.2 0.1-1.0 Urobilinogen) [facility] [id number] 08:40:00 Test Item Value Reference Range Interpretation Comments UA Ketones (test code Negative *NA*(02/13/16 = UA Ketones) 3:40 AM) [facility] [id number] 08:40:00 Test Item Value Reference Range Interpretation Comments UA Glucose (test code Negative (02/13/16 3:40 = UA Glucose) AM) [facility] [id number] 08:40:00 Test Item Value Reference Range Interpretation Comments UA Blood (test code = Large *ABN*(02/13/16 UA Blood) 3:40 AM) [facility] [id number] 08:40:00 Test Item Value Reference Range Interpretation Comments UA Bili (test code = Negative *NA*(02/13/16 UA Bili) 3:40 AM) [facility] [id number] 08:40:00 Test Item Value Reference Range Interpretation Comments UA Protein (test code = UA Protein) 30 mg/dL [facility] [id number] 08:40:00 Test Item Value Reference Range Interpretation Comments UA Spec Grav (test code = UA Spec 1.015 1 Grav) [facility] [id number] 08:40:00 Test Item Value Reference Range Interpretation Comments UA pH (test code = UA pH) 7.0 1 5.0-8.0 [facility] [id number] 08:40:00 Test Item Value Reference Range Interpretation Comments UA Color (test code = Red *ABN*(02/13/16 3:40 UA Color) AM) [facility] [id number] 08:40:00 Test Item Value Reference Range Interpretation Comments UA Turbidity (test code Bloody *ABN*(02/13/16 = UA Turbidity) 3:40 AM) [facility] [id number] 08:40:00 Test Item Value Reference Range Interpretation Comments UA Bacteria (test code = UA Occasional /HPF Bacteria) [facility] [id number] 08:40:00 Test Item Value Reference Range Interpretation Comments UA RBC (test Packed See_Comment [Automated mes shirley] code = UA RBC) *ABN*(02/13/16 3:40 The syst em which AM) generated this result transmitted ref erence range: <=2. The reference range was not used to int erpret this result as normal/abnormal . [facility] AND [id number] 08:40:00 Test Item Value Reference Range Interpretation Comments UA WBC (test code = UA WBC) 3-5 /HPF [facility] AND [id number] 08:40:00 Test Item Value Reference Range Interpretation Comments UA Sq Epi (test code = UA Sq Epi) Rare /LPF [facility] AND [id number] 08:40:00 Test Item Value Reference Range Interpretation Comments UA Leuk Est (test code Trace *ABN*(02/13/16 3:40 = UA Leuk Est) AM) [facility] AND [id number] 08:40:00 Test Item Value Reference Range Interpretation Comments UA Nitrite (test code Negative (02/13/16 3:40 = UA Nitrite) AM) [facility] AND [id number] 08:40:00 Test Item Value Reference Range Interpretation Comments UA Urobilinogen (test code = UA 0.2 0.1-1.0 Urobilinogen) [facility] AND [id number] 08:40:00 Test Item Value Reference Range Interpretation Comments UA Ketones (test code Negative *NA*(02/13/16 = UA Ketones) 3:40 AM) [facility] AND [id number] 08:40:00 Test Item Value Reference Range Interpretation Comments UA Glucose (test code Negative (02/13/16 3:40 = UA Glucose) AM) [facility] AND [id number] 08:40:00 Test Item Value Reference Range Interpretation Comments UA Blood (test code = Large *ABN*(02/13/16 UA Blood) 3:40 AM) [facility] AND [id number] 08:40:00 Test Item Value Reference Range Interpretation Comments UA Bili (test code = Negative *NA*(02/13/16 UA Bili) 3:40 AM) [facility] AND [id number] 08:40:00 Test Item Value Reference Range Interpretation Comments UA Protein (test code = UA Protein) 30 mg/dL [facility] AND [id number] 08:40:00 Test Item Value Reference Range Interpretation Comments UA Spec Grav (test code = UA Spec 1.015 1 Grav) [facility] AND [id number] 08:40:00 Test Item Value Reference Range Interpretation Comments UA pH (test code = UA pH) 7.0 1 5.0-8.0 [facility] AND [id number] 08:40:00 Test Item Value Reference Range Interpretation Comments UA Color (test code = Red *ABN*(02/13/16 3:40 UA Color) AM) [facility] AND [id number] 08:40:00 Test Item Value Reference Range Interpretation Comments UA Turbidity (test code Bloody *ABN*(02/13/16 = UA Turbidity) 3:40 AM) [facility] AND [id number] 08:40:00 Test Item Value Reference Range Interpretation Comments UA Bacteria (test code = UA Occasional /HPF Bacteria) [facility] AND [id number] 08:40:00 Test Item Value Reference Range Interpretation Comments UA RBC (test Packed See_Comment [Automated mes shirley] code = UA RBC) *ABN*(02/13/16 3:40 The syst em which AM) generated this result transmitted ref erence range: <=2. The reference range was not used to int erpret this result as normal/abnormal . [facility] AND [id number] 08:40:00 Test Item Value Reference Range Interpretation Comments UA WBC (test code = UA WBC) 3-5 /HPF [facility] AND [id number] 08:40:00 Test Item Value Reference Range Interpretation Comments UA Sq Epi (test code = UA Sq Epi) Rare /LPF [facility] AND [id number] 08:40:00 Test Item Value Reference Range Interpretation Comments UA Leuk Est (test code Trace *ABN*(02/13/16 3:40 = UA Leuk Est) AM) [facility] AND [id number] 08:40:00 Test Item Value Reference Range Interpretation Comments UA Nitrite (test code Negative (02/13/16 3:40 = UA Nitrite) AM) [facility] AND [id number] 08:40:00 Test Item Value Reference Range Interpretation Comments UA Urobilinogen (test code = UA 0.2 0.1-1.0 Urobilinogen) [facility] AND [id number] 08:40:00 Test Item Value Reference Range Interpretation Comments UA Ketones (test code Negative *NA*(02/13/16 = UA Ketones) 3:40 AM) [facility] AND [id number] 08:40:00 Test Item Value Reference Range Interpretation Comments UA Glucose (test code Negative (02/13/16 3:40 = UA Glucose) AM) [facility] AND [id number] 08:40:00 Test Item Value Reference Range Interpretation Comments UA Blood (test code = Large *ABN*(02/13/16 UA Blood) 3:40 AM) [facility] AND [id number] 08:40:00 Test Item Value Reference Range Interpretation Comments UA Bili (test code = Negative *NA*(02/13/16 UA Bili) 3:40 AM) [facility] AND [id number] 08:40:00 Test Item Value Reference Range Interpretation Comments UA Protein (test code = UA Protein) 30 mg/dL [facility] AND [id number] 08:40:00 Test Item Value Reference Range Interpretation Comments UA Spec Grav (test code = UA Spec 1.015 1 Grav) [facility] AND [id number] 08:40:00 Test Item Value Reference Range Interpretation Comments UA pH (test code = UA pH) 7.0 1 5.0-8.0 [facility] AND [id number] 08:40:00 Test Item Value Reference Range Interpretation Comments UA Color (test code = Red *ABN*(02/13/16 3:40 UA Color) AM) [facility] [id number] 08:40:00 Test Item Value Reference Range Interpretation Comments UA Turbidity (test code Bloody *ABN*(02/13/16 = UA Turbidity) 3:40 AM) [facility] AND [id number] 08:40:00 Test Item Value Reference Range Interpretation Comments UA Bacteria (test code = UA Occasional /HPF Bacteria) [facility] AND [id number] 08:40:00 Test Item Value Reference Range Interpretation Comments UA RBC (test Packed See_Comment [Automated mes shirley] code = UA RBC) *ABN*(02/13/16 3:40 The syst em which AM) generated this result transmitted ref erence range: <=2. The reference range was not used to int erpret this result as normal/abnormal . [facility] [id number] 08:40:00 Test Item Value Reference Range Interpretation Comments UA WBC (test code = UA WBC) 3-5 /HPF [facility] [id number] 08:40:00 Test Item Value Reference Range Interpretation Comments UA Sq Epi (test code = UA Sq Epi) Rare /LPF [employer] [id number] 06:44:00 Test Item Value Reference Range Interpretation Comments Antibody Scrn (test Negative (02/13/16 1:44 code = Antibody Scrn) AM) [employer] [id number] 06:44:00 Test Item Value Reference Range Interpretation Comments ABO/Rh (test code = ABO/Rh) A POS [facility] [id number] 06:44:00 Test Item Value Reference Range Interpretation Comments CK MB Index (test 1.6 See_Comment [Automate d message] The code = CK MB Index) system w [facility] generated this result transmit gaye reference range : <=2.5. The reference range was not used to interpr et this result as satish l/abnormal. [employer] [id number] 06:44:00 Test Item Value Reference Range Interpretation Comments CK MB (test code = CK MB) 0.9 0.5-3.6 [facility] [id number] 06:44:00 Test Item Value Reference Range Interpretation Comments Total CK (test code = Total CK) 57 12-191 [facility] [id number] 06:44:00 Test Item Value Reference Range Interpretation Comments Troponin-I (test code no gt See_Comment [Auto mated message] The = Troponin-I) system which g enerated this result transmit gaye reference range : <=0.40. The reference r ozzy was not used to interpr et this result as satish l/abnormal. [facility] VIVA [id number] 06:44:00 Test Item Value Reference Range Interpretation Comments Albumin Lvl (test code = Albumin Lvl) 3.5 3.5-5.0 [facility] [id number] 06:44:00 Test Item Value Reference Range Interpretation Comments Total Protein (test code = Total 7.0 6.4-8.4 Protein) [facility] [id number] 06:44:00 Test Item Value Reference Range Interpretation Comments ALT (test code = ALT) 19 See_Comment [Auto mated message] The system which ge nerated this result transmit gaye reference range : <=65. The reference range was not used to interpr et this result as satish l/abnormal. [facility] VIVA [id number] 06:44:00 Test Item Value Reference Range Interpretation Comments AST (test code = AST) 10 See_Comment [Auto mated message] The system which ge nerated this result transmit gaye reference range : <=37. The reference range was not used to interpr et this result as satish l/abnormal. [facility] [id number] 06:44:00 Test Item Value Reference Range Interpretation Comments Alk Phos (test code = Alk Phos) 79 39-136 [facility] [id number] 06:44:00 Test Item Value Reference Range Interpretation Comments Bili Total (test code = Bili Total) 0.4 0.2-1.3 [facility] [id number] 06:44:00 Test Item Value Reference Range Interpretation [...] (test code = A/G Ratio) 1.0 0.7-1.6 [place] [id number] 06:44:00 Test Item Value Reference Range Interpretation [...] BUN (test code = BUN) 8 7-22 [place] [id number] 06:44:00 Test Item Value Reference Range Interpretation [...] CO2 (test code = CO2) 25 24-32 [place] 580146-07-03 06:44:00 Test Item Value Reference Range Interpretation [...] (test code = Magnesium 2.2 1.8-2.4 Lvl) [id number] 06:44:00 Test Item Value Reference Range Interpretation Comments S Preg (test code = S Negative *NA*(02/13/16 Preg) 1:44 AM) [facility]VrikojyJDYKCMZLCZ7325-14-73 06:44:00 Test Item Value Reference Range Interpretation Comments Basophils (test code = 0.1 See_Comment [Aut omated message] The Basophils) system which ge nerated this result tra nsmitted reference range : <=1.0. The reference r ozzy was not used to int erpret this result as normal/abnormal . [facility] H[id number] 06:44:00 Test Item Value Reference Range Interpretation Comments Monocytes # (test code 0.3 See_Comment [Aut omated message] The = Monocytes #) system which generated this result tra nsmitted reference range : <=0.8. The reference r ozzy was not used to int erpret this result as normal/abnormal . [facility] HospitalNafqjdoQSVVKCVOHJ8006-11-93 06:44:00 Test Item Value Reference Range Interpretation Comments Eosinophils # (test code 0.1 See_Comment [A utomated message] The = Eosinophils #) system whic h generated this result tra nsmitted reference range : <=0.5. The reference r ozzy was not used to int erpret this result as normal/abnormal . [facility] Hos[id number] 06:44:00 Test Item Value Reference Range Interpretation Comments Segs-Bands # (test code = Segs-Bands #) 9.3 1.5-8.1 [facility] H[id number] 06:44:00 Test Item Value Reference Range Interpretation Comments Lymphocytes # (test code = Lymphocytes 2.6 1.0-5.5 #) [facility] HospitalJctnocoLGGMYLZTHO9334-72-32 06:44:00 Test Item Value Reference Range Interpretation Comments Basophils # (test code 0.0 See_Comment [Aut omated message] The = Basophils #) system which generated this result tra nsmitted reference range : <=0.2. The reference r ozzy was not used to int erpret this result as normal/abnormal . [facility] H[id number] 06:44:00 Test Item Value Reference Range Interpretation Comments Microcyte (test code = 1+ *ABN*(02/13/16 1:44 Microcyte) AM) [facility] Hos[id number] 06:44:00 Test Item Value Reference Range Interpretation Comments Giant Plt (test code Moderate *ABN*(02/13/16 = Giant Plt) 1:44 AM) [facility] H[id number] 06:44:00 Test Item Value Reference Range Interpretation Comments Segs (test code = Segs) 75.2 45.0-75.0 [facility] HospitalBdvlaveWLLTXENETF3179-92-34 06:44:00 Test Item Value Reference Range Interpretation Comments Hypochrom (test code = 1+ (02/13/16 1:44 AM) Hypochrom) [facility] HospitalOrxkyquCJMGOWNXLS1588-06-00 06:44:00 Test Item Value Reference Range Interpretation Comments Eosinophils (test code = 0.7 See_Comment [A utomated message] The Eosinophils) system which ge nerated this result tra nsmitted reference range : <=4.0. The reference r ozzy was not used to int erpret this result as normal/abnormal . [facility] HospitalKgxgcnzRRPNHBSGLJ2020-51-30 06:44:00 Test Item Value Reference Range Interpretation Comments Lymphocytes (test code = Lymphocytes) 21.3 20.0-40.0 [facility] HospitalPatyigeNIOJVTXLIW0578-63-53 06:44:00 Test Item Value Reference Range Interpretation Comments Monocytes (test code = Monocytes) 2.7 2.0-12.0 [facility] HospitalZxzdwpyVMQRMYTUIY3478-22-94 06:44:00 Test Item Value Reference Range Interpretation Comments MPV (test code = MPV) 9.5 7.4-10.4 [facility] HospitalRczibflKBXMMNXLTK7871-61-41 06:44:00 Test Item Value Reference Range Interpretation Comments RDW (test code = RDW) 17.8 11.5-14.5 [facility]ExsfsizKDGFJMWITJ3941-77-58 06:44:00 Test Item Value Reference Range Interpretation Comments MCV (test code = MCV) 73.2 80.0-98.0 [facility] SurgerySygltniXSXIVIOLPI9096-83-69 06:44:00 Test Item Value Reference Range Interpretation Comments MCH (test code = MCH) 21.9 pg 27.0-31.0 [facility] SurgeryVccslpkSBPBWQAKOP4007-83-26 06:44:00 Test Item Value Reference Range Interpretation Comments Hct (test code = Hct) 27.2 36.0-48.0 [facility] SurgeryGkgpswxRRQKUOKKBE9106-19-91 06:44:00 Test Item Value Reference Range Interpretation Comments MCHC (test code = MCHC) 29.9 32.0-36.0 [facility] SurgeryUvtwuejRTIGALFEAR2097-93-23 06:44:00 Test Item Value Reference Range Interpretation Comments Platelet (test code = Platelet) 400 133-450 [facility] HospitalTttiapdZEMEBCWZKG7446-17-58 06:44:00 Test Item Value Reference Range Interpretation Comments WBC (test code = WBC) 12.4 3.7-10.4 [facility] SurgeryGkbsrigVOBDRTJEZY5908-98-93 06:44:00 Test Item Value Reference Range Interpretation Comments RBC (test code = RBC) 3.72 4.20-5.40 [facility] HospitalHwdxpmoKZNJGPUKQG5447-00-46 06:44:00 Test Item Value Reference Range Interpretation Comments Hgb (test code = Hgb) 8.1 12.0-16.0 [facility] HospitalChnqhqlQDQOBMJGWK2284-41-33 06:44:00 Test Item Value Reference Range Interpretation Comments PTT (test code = PTT) 27.2 s 22.9-35.8 [facility] SurgeryXoxnrpaYBFKSZPNSP7100-30-14 06:44:00 Test Item Value Reference Range Interpretation Comments PT (test code = PT) 14.7 s 12.0-14.7 [facility] HospitalTkxghfgUZCEQDWPMN3903-53-37 06:44:00 Test Item Value Reference Range Interpretation Comments INR (test code = INR) 1.12 0.85-1.17 [facility] BANK [id number] 06:44:00 Test Item Value Reference Range Interpretation Comments Antibody Scrn (test Negative (02/13/16 1:44 code = Antibody Scrn) AM) [facility] [id number] 06:44:00 Test Item Value Reference Range Interpretation Comments ABO/Rh (test code = ABO/Rh) A POS [facility] [id number] 06:44:00 Test Item Value Reference Range Interpretation Comments CK MB Index (test 1.6 See_Comment [Automate d message] The code = CK MB Index) system w [facility] generated this result transmit gaye reference range : <=2.5. The reference range was not used to interpr et this result as satish l/abnormal. [employer] [id number] 06:44:00 Test Item Value Reference Range Interpretation Comments CK MB (test code = CK MB) 0.9 0.5-3.6 [facility] [id number] 06:44:00 Test Item Value Reference Range Interpretation Comments Total CK (test code = Total CK) 57 12-191 [facility] [id number] 06:44:00 Test Item Value Reference Range Interpretation Comments Troponin-I (test code no gt See_Comment [Auto mated message] The = Troponin-I) system which g enerated this result transmit gaye reference range : <=0.40. The reference r ozzy was not used to interpr et this result as satish l/abnormal. AGELON ? [id number] 06:44:00 Test Item Value Reference Range Interpretation Comments Albumin Lvl (test code = Albumin Lvl) 3.5 3.5-5.0 [facility] [id number] 06:44:00 Test Item Value Reference Range Interpretation Comments Total Protein (test code = Total 7.0 6.4-8.4 Protein) [facility] [id number] 06:44:00 Test Item Value Reference Range Interpretation Comments ALT (test code = ALT) 19 See_Comment [Auto mated message] The system which ge nerated this result transmit gaye reference range : <=65. The reference range was not used to interpr et this result as satish l/abnormal. AGELON ? [id number] 06:44:00 Test Item Value Reference Range Interpretation Comments AST (test code = AST) 10 See_Comment [Auto mated message] The system which ge nerated this result transmit gaye reference range : <=37. The reference range was not used to interpr et this result as satish l/abnormal. [place] 580146-07-03 06:44:00 Test Item Value Reference Range Interpretation Comments Alk Phos (test code = Alk Phos) 79 39-136 [place] 580146-07-03 06:44:00 Test Item Value Reference Range Interpretation [...] (test code = A/G Ratio) 1.0 0.7-1.6 [place] 580146-07-03 06:44:00 Test Item Value Reference Range Interpretation [...] (test code = Glucose Lvl) 91 70-99 [place] 580146-07-03 06:44:00 Test Item Value Reference Range Interpretation [...] (test code = Magnesium 2.2 1.8-2.4 Lvl) [facility]TxwutqjJMCXWANXGGYVU9791-94-21 06:44:00 Test Item Value Reference Range Interpretation Comments S Preg (test code = S Negative *NA*(02/13/16 Preg) 1:44 AM) [facility] HospitalFcztdjtFLBANGPVAQ0525-58-80 06:44:00 Test Item Value Reference Range Interpretation Comments Basophils (test code = 0.1 See_Comment [Aut omated message] The Basophils) system which ge nerated this result tra nsmitted reference range : <=1.0. The reference r ozzy was not used to int erpret this result as normal/abnormal . [facility] HospitalRlprmyzRXVYQKULUG8810-83-65 06:44:00 Test Item Value Reference Range Interpretation Comments Monocytes # (test code 0.3 See_Comment [Aut omated message] The = Monocytes #) system which generated this result tra nsmitted reference range : <=0.8. The reference r ozzy was not used to int erpret this result as normal/abnormal . [facility] HospitalBcchdwgRIIXGNOQVL4501-12-53 06:44:00 Test Item Value Reference Range Interpretation Comments Eosinophils # (test code 0.1 See_Comment [A utomated message] The = Eosinophils #) system whic h generated this result tra nsmitted reference range : <=0.5. The reference r ozzy was not used to int erpret this result as normal/abnormal . [facility] HospitalQmyebfoSIDEFYFGVI3636-17-84 06:44:00 Test Item Value Reference Range Interpretation Comments Segs-Bands # (test code = Segs-Bands #) 9.3 1.5-8.1 [facility] HospitalIfbqkmxGJTJBWHPCW8638-19-24 06:44:00 Test Item Value Reference Range Interpretation Comments Lymphocytes # (test code = Lymphocytes 2.6 1.0-5.5 #) [facility] HospitalWuuzunqIOTBOMUWKA8181-39-00 06:44:00 Test Item Value Reference Range Interpretation Comments Basophils # (test code 0.0 See_Comment [Aut omated message] The = Basophils #) system which generated this result tra nsmitted reference range : <=0.2. The reference r ozzy was not used to int erpret this result as normal/abnormal . [facility] HospitalAaljlojBQGJXWUHNR3074-17-36 06:44:00 Test Item Value Reference Range Interpretation Comments Microcyte (test code = 1+ *ABN*(02/13/16 1:44 Microcyte) AM) [facility] HospitalFqajbcqSVVWSIEBHT1380-96-67 06:44:00 Test Item Value Reference Range Interpretation Comments Giant Plt (test code Moderate *ABN*(02/13/16 = Giant Plt) 1:44 AM) [facility] HospitalCgsrkkoHPDHLYTJPC0748-75-97 06:44:00 Test Item Value Reference Range Interpretation Comments Segs (test code = Segs) 75.2 45.0-75.0 [facility] HospitalGyjcnecTKHXIXAJEY2925-69-93 06:44:00 Test Item Value Reference Range Interpretation Comments Hypochrom (test code = 1+ (02/13/16 1:44 AM) Hypochrom) [facility] HospitalVjeslpmOICAFFNGPP0931-62-65 06:44:00 Test Item Value Reference Range Interpretation Comments Eosinophils (test code = 0.7 See_Comment [A utomated message] The Eosinophils) system which ge nerated this result tra nsmitted reference range : <=4.0. The reference r ozzy was not used to int erpret this result as normal/abnormal . [facility] HospitalNieymlmQDQZSEYUGD5855-40-61 06:44:00 Test Item Value Reference Range Interpretation Comments Lymphocytes (test code = Lymphocytes) 21.3 20.0-40.0 [facility] HospitalVqledkcLFVQAMXOVP1822-91-21 06:44:00 Test Item Value Reference Range Interpretation Comments Monocytes (test code = Monocytes) 2.7 2.0-12.0 [facility] HospitalLkenbeeILTFVCZWLP9140-32-11 06:44:00 Test Item Value Reference Range Interpretation Comments MPV (test code = MPV) 9.5 7.4-10.4 [facility] HospitalPikspryFVBKLWOUNC1855-15-32 06:44:00 Test Item Value Reference Range Interpretation Comments RDW (test code = RDW) 17.8 11.5-14.5 [facility] HospitalKqdmyzzQXWCFJLFEF0857-20-87 06:44:00 Test Item Value Reference Range Interpretation Comments MCV (test code = MCV) 73.2 80.0-98.0 [facility] HospitalKnguuyiVYGXKWFBIO1713-20-37 06:44:00 Test Item Value Reference Range Interpretation Comments MCH (test code = MCH) 21.9 pg 27.0-31.0 [facility] HospitalWhpfbevZDSSBAPNVM6745-87-21 06:44:00 Test Item Value Reference Range Interpretation Comments Hct (test code = Hct) 27.2 36.0-48.0 [facility] HospitalMafogknDXKFHPEJFA6017-67-44 06:44:00 Test Item Value Reference Range Interpretation Comments MCHC (test code = MCHC) 29.9 32.0-36.0 [facility] HospitalAvhskmaFCUFCALNTM3664-90-29 06:44:00 Test Item Value Reference Range Interpretation Comments Platelet (test code = Platelet) 400 133-450 [facility] HospitalCxrvogjXGHQSODKTY6387-24-96 06:44:00 Test Item Value Reference Range Interpretation Comments WBC (test code = WBC) 12.4 3.7-10.4 [facility] HospitalPznttdeEGMVQHSZZN0852-69-31 06:44:00 Test Item Value Reference Range Interpretation Comments RBC (test code = RBC) 3.72 4.20-5.40 [facility] HospitalGozwaqvNAMQQFSBTI0371-55-14 06:44:00 Test Item Value Reference Range Interpretation Comments Hgb (test code = Hgb) 8.1 12.0-16.0 [facility] BtcikwaKBNQJUHBZK1466-31-74 06:44:00 Test Item Value Reference Range Interpretation Comments PTT (test code = PTT) 27.2 s 22.9-35.8 [facility] HfoszdlUXSHJJJDEF6644-29-12 06:44:00 Test Item Value Reference Range Interpretation Comments PT (test code = PT) 14.7 s 12.0-14.7 [facility] HxsgvekVAPOOCKLNF9935-43-49 06:44:00 Test Item Value Reference Range Interpretation Comments INR (test code = INR) 1.12 0.85-1.17 [facility] [id number] 06:44:00 Test Item Value Reference Range Interpretation Comments Antibody Scrn (test Negative (02/13/16 1:44 code = Antibody Scrn) AM) [facility] [id number] 06:44:00 Test Item Value Reference Range Interpretation Comments ABO/Rh (test code = ABO/Rh) A POS [facility]2016-07-03 06:44:00 Test Item Value Reference Range Interpretation Comments CK MB Index (test 1.6 See_Comment [Automate d message] The code = CK MB Index) system w [facility] generated this result transmit gaye reference range : <=2.5. The reference range was not used to interpr et this result as satish l/abnormal. My[facility]2016-07-03 06:44:00 Test Item Value Reference Range Interpretation Comments CK MB (test code = CK MB) 0.9 0.5-3.6 [facility]2016-07-03 06:44:00 Test Item Value Reference Range Interpretation Comments Total CK (test code = Total CK) 57 12-191 [facility] [id number] 06:44:00 Test Item Value Reference Range Interpretation Comments Troponin-I (test code no gt See_Comment [Auto mated message] The = Troponin-I) system which g enerated this result transmit gaye reference range : <=0.40. The reference r ozzy was not used to interpr et this result as satish l/abnormal. AGELON ? [id number] 06:44:00 Test Item Value Reference Range Interpretation Comments Albumin Lvl (test code = Albumin Lvl) 3.5 3.5-5.0 [facility] HospitalStartup NetworkWAKE FOREST BAPTIST HEALTH DAVIE [id number] 06:44:00 Test Item Value Reference Range Interpretation [...] et this result as satish l/abnormal. [facility] HospitalAsur[facility] [id number] 06:44:00 Test Item Value Reference Range Interpretation Comments AST (test code = AST) 10 See_Comment [Auto mated message] The system which ge nerated this result transmit gaye reference range : <=37. The reference range was not used to interpr et this result as satish l/abnormal. [facility] [id number] 06:44:00 Test Item Value Reference Range Interpretation Comments Alk Phos (test code = Alk Phos) 79 39-136 [facility] [id number] 06:44:00 Test Item Value Reference Range Interpretation [...] int erpret this result as satish l/abnormal. [facility] [id number] 06:44:00 Test Item Value Reference Range Interpretation Comments Globulin (test code = Globulin) 3.5 2.0-4.0 [facility] [id number] 06:44:00 Test Item Value Reference Range Interpretation Comments A/G Ratio (test code = A/G Ratio) 1.0 0.7-1.6 [facility] [id number] 06:44:00 Test Item Value Reference Range Interpretation [...] = Magnesium 2.2 1.8-2.4 Lvl) [facility] DallasAyrstquDBZUQWNTSZJLV3564-07-35 06:44:00 Test Item Value Reference Range Interpretation Comments S Preg (test code = S Negative *NA*(02/13/16 Preg) 1:44 AM) [facility] H[id number] 06:44:00 Test Item Value Reference Range Interpretation Comments Basophils (test code = 0.1 See_Comment [Aut omated message] The Basophils) system which ge nerated this result tra nsmitted reference range : <=1.0. The reference r ozzy was not used to int erpret this result as normal/abnormal . [facility] HospitalQohwvsjHQYSDYQZKV4119-10-75 06:44:00 Test Item Value Reference Range Interpretation Comments Monocytes # (test code 0.3 See_Comment [Aut omated message] The = Monocytes #) system which generated this result tra nsmitted reference range : <=0.8. The reference r ozzy was not used to int erpret this result as normal/abnormal . [facility] HospitalFckkyvhNSNWVDDQCW1412-31-51 06:44:00 Test Item Value Reference Range Interpretation Comments Eosinophils # (test code 0.1 See_Comment [A utomated message] The = Eosinophils #) system whic h generated this result tra nsmitted reference range : <=0.5. The reference r ozzy was not used to int erpret this result as normal/abnormal . [facility] HospitalVrnqnapMIGBPDRJUX8598-19-32 06:44:00 Test Item Value Reference Range Interpretation Comments Segs-Bands # (test code = Segs-Bands #) 9.3 1.5-8.1 [facility] HospitalYmeocbiKUTNTWXCKV5968-67-28 06:44:00 Test Item Value Reference Range Interpretation Comments Lymphocytes # (test code = Lymphocytes 2.6 1.0-5.5 #) [facility] HospitalIxjpbdtFFTNOVVDNU5241-31-36 06:44:00 Test Item Value Reference Range Interpretation Comments Basophils # (test code 0.0 See_Comment [Aut omated message] The = Basophils #) system which generated this result tra nsmitted reference range : <=0.2. The reference r ozzy was not used to int erpret this result as normal/abnormal . [facility] HospitalSufjsrkLLRYZWAXYD0041-27-59 06:44:00 Test Item Value Reference Range Interpretation Comments Microcyte (test code = 1+ *ABN*(02/13/16 1:44 Microcyte) AM) [facility] HospitalVsnugiwURXVZFOJGZ7959-79-76 06:44:00 Test Item Value Reference Range Interpretation Comments Giant Plt (test code Moderate *ABN*(02/13/16 = Giant Plt) 1:44 AM) [facility] HospitalHlsovtaUWYHLUYNEY4767-11-77 06:44:00 Test Item Value Reference Range Interpretation Comments Segs (test code = Segs) 75.2 45.0-75.0 [facility] HospitalIyaxshqBUKWQSAFYR6722-13-41 06:44:00 Test Item Value Reference Range Interpretation Comments Hypochrom (test code = 1+ (02/13/16 1:44 AM) Hypochrom) [facility] HospitalGwtlceaNNWTQAWZHQ4516-75-03 06:44:00 Test Item Value Reference Range Interpretation Comments Eosinophils (test code = 0.7 See_Comment [A utomated message] The Eosinophils) system which ge nerated this result tra nsmitted reference range : <=4.0. The reference r ozzy was not used to int erpret this result as normal/abnormal . [facility] HospitalTwpsmtyNEXVDWTXHT9019-16-41 06:44:00 Test Item Value Reference Range Interpretation Comments Lymphocytes (test code = Lymphocytes) 21.3 20.0-40.0 [facility] HospitalBzzvzjnPJZERIICMH4072-65-51 06:44:00 Test Item Value Reference Range Interpretation Comments Monocytes (test code = Monocytes) 2.7 2.0-12.0 [facility] HospitalLiwohphETKQTYDGCC9647-85-31 06:44:00 Test Item Value Reference Range Interpretation Comments MPV (test code = MPV) 9.5 7.4-10.4 [facility] HospitalTkjdeijSLWBFHWKRP0469-25-93 06:44:00 Test Item Value Reference Range Interpretation Comments RDW (test code = RDW) 17.8 11.5-14.5 [facility] HospitalYtwhligBREQOHAARQ4211-48-17 06:44:00 Test Item Value Reference Range Interpretation Comments MCV (test code = MCV) 73.2 80.0-98.0 [facility] HospitalTkwxcsyAEZNQEYHFH4661-40-61 06:44:00 Test Item Value Reference Range Interpretation Comments MCH (test code = MCH) 21.9 pg 27.0-31.0 [facility] HospitalZecvwyjUIQGGWMBSJ8463-93-46 06:44:00 Test Item Value Reference Range Interpretation Comments Hct (test code = Hct) 27.2 36.0-48.0 [facility] HospitalGsslljaNJRRLSAQRB4606-08-20 06:44:00 Test Item Value Reference Range Interpretation Comments MCHC (test code = MCHC) 29.9 32.0-36.0 [facility] HospitalMlflmbkQSZTEZUMVJ0012-33-62 06:44:00 Test Item Value Reference Range Interpretation Comments Platelet (test code = Platelet) 400 133-450 [facility] HospitalYtxrlfjHYWQEFARVT4752-64-01 06:44:00 Test Item Value Reference Range Interpretation Comments WBC (test code = WBC) 12.4 3.7-10.4 [facility] RolhpkjYYFRZSLDWC0285-21-23 06:44:00 Test Item Value Reference Range Interpretation Comments RBC (test code = RBC) 3.72 4.20-5.40 [facility] ZyltocwPMVOAURXGO8122-93-00 06:44:00 Test Item Value Reference Range Interpretation Comments Hgb (test code = Hgb) 8.1 12.0-16.0 [facility] HospitalKcomzjjHRKVQPHLWR4689-97-78 06:44:00 Test Item Value Reference Range Interpretation Comments PTT (test code = PTT) 27.2 s 22.9-35.8 [facility] RwepvgoJZRKMUQNDN2148-17-42 06:44:00 Test Item Value Reference Range Interpretation Comments PT (test code = PT) 14.7 s 12.0-14.7 [facility] MsxrrtfLQIMZOEHGJ6929-76-95 06:44:00 Test Item Value Reference Range Interpretation Comments INR (test code = INR) 1.12 0.85-1.17 [facility] [id number] 06:44:00 Test Item Value Reference Range Interpretation Comments Antibody Scrn (test Negative (02/13/16 1:44 code = Antibody Scrn) AM) [facility] [id number] 06:44:00 Test Item Value Reference Range Interpretation Comments ABO/Rh (test code = ABO/Rh) A POS [facility]2016-07-03 06:44:00 Test Item Value Reference Range Interpretation Comments CK MB Index (test 1.6 See_Comment [Automate d message] The code = CK MB Index) system w [facility] generated this result transmit gaye reference range : <=2.5. The reference range was not used to interpr et this result as satish l/abnormal. MyVR2016-07-03 06:44:00 Test Item Value Reference Range Interpretation Comments CK MB (test code = CK MB) 0.9 0.5-3.6 [facility] HospitalStartup NetworkCARTengionAC JKNQBZW5397-17-09 06:44:00 Test Item Value Reference Range Interpretation Comments Total CK (test code = Total CK) 57 12-191 [facility] DallasCARTengion [id number] 06:44:00 Test Item Value Reference Range Interpretation Comments Troponin-I (test code no gt See_Comment [Auto mated message] The = Troponin-I) system which g enerated this result transmit gaye reference range : <=0.40. The reference r ozzy was not used to interpr et this result as satish l/abnormal. [facility] [id number] 06:44:00 Test Item Value Reference Range Interpretation Comments Albumin Lvl (test code = Albumin Lvl) 3.5 3.5-5.0 [facility] [id number] 06:44:00 Test Item Value Reference Range Interpretation Comments Total Protein (test code = Total 7.0 6.4-8.4 Protein) [facility] [id number] 06:44:00 Test Item Value Reference Range Interpretation Comments ALT (test code = ALT) 19 See_Comment [Auto mated message] The system which ge nerated this result transmit gaye reference range : <=65. The reference range was not used to interpr et this result as satish l/abnormal. [facility] [id number] 06:44:00 Test Item Value Reference Range Interpretation Comments AST (test code = AST) 10 See_Comment [Auto mated message] The system which ge nerated this result transmit gaye reference range : <=37. The reference range was not used to interpr et this result as satish l/abnormal. [facility] [id number] 06:44:00 Test Item Value Reference Range Interpretation Comments Alk Phos (test code = Alk Phos) 79 39-136 [facility] [id number] 06:44:00 Test Item Value Reference Range Interpretation Comments Bili Total (test code = Bili Total) 0.4 0.2-1.3 [facility] CCWPQ6172-03-16 06:44:00 Test Item Value Reference Range Interpretation [...] CO2 (test code = CO2) 25 24-32 [place] 580146-07-03 06:44:00 Test Item Value Reference Range Interpretation [...] (test code = Magnesium 2.2 1.8-2.4 Lvl) [facility]IqrlkrtVWQLWWXUENBKV4241-62-27 06:44:00 Test Item Value Reference Range Interpretation Comments S Preg (test code = S Negative *NA*(02/13/16 Preg) 1:44 AM) [facility] HospitalJjmbucwRMLGBORQNM5242-54-94 06:44:00 Test Item Value Reference Range Interpretation Comments Basophils (test code = 0.1 See_Comment [Aut omated message] The Basophils) system which ge nerated this result tra nsmitted reference range : <=1.0. The reference r ozzy was not used to int erpret this result as normal/abnormal . [facility] HospitalVcivvkiVQFMJKJMBN2791-51-08 06:44:00 Test Item Value Reference Range Interpretation Comments Monocytes # (test code 0.3 See_Comment [Aut omated message] The = Monocytes #) system which generated this result tra nsmitted reference range : <=0.8. The reference r ozzy was not used to int erpret this result as normal/abnormal . [facility] HospitalGaxsxxaKULUWHJWEA1787-36-29 06:44:00 Test Item Value Reference Range Interpretation Comments Eosinophils # (test code 0.1 See_Comment [A utomated message] The = Eosinophils #) system whic h generated this result tra nsmitted reference range : <=0.5. The reference r ozzy was not used to int erpret this result as normal/abnormal . [facility] HospitalVxawkooFYIPFQUCET2644-36-63 06:44:00 Test Item Value Reference Range Interpretation Comments Segs-Bands # (test code = Segs-Bands #) 9.3 1.5-8.1 [facility] HospitalFgzblttXJUSYGOPJS7223-18-65 06:44:00 Test Item Value Reference Range Interpretation Comments Lymphocytes # (test code = Lymphocytes 2.6 1.0-5.5 #) [facility] HospitalKeudrymWFTIYABXAN5685-95-92 06:44:00 Test Item Value Reference Range Interpretation Comments Basophils # (test code 0.0 See_Comment [Aut omated message] The = Basophils #) system which generated this result tra nsmitted reference range : <=0.2. The reference r ozzy was not used to int erpret this result as normal/abnormal . [facility] HospitalTxcnlvjGETNHXSLKI2002-65-01 06:44:00 Test Item Value Reference Range Interpretation Comments Microcyte (test code = 1+ *ABN*(02/13/16 1:44 Microcyte) AM) [facility] HospitalJygjmboEFYXCIGUTX1750-16-55 06:44:00 Test Item Value Reference Range Interpretation Comments Giant Plt (test code Moderate *ABN*(02/13/16 = Giant Plt) 1:44 AM) [facility] HospitalOpkymqqSJXVHYZZRM5401-68-11 06:44:00 Test Item Value Reference Range Interpretation Comments Segs (test code = Segs) 75.2 45.0-75.0 [facility] HospitalApcawdlLXOUDXXLLC3917-46-06 06:44:00 Test Item Value Reference Range Interpretation Comments Hypochrom (test code = 1+ (02/13/16 1:44 AM) Hypochrom) [facility] HospitalCivdpwbSKMEPBIPEH7471-99-18 06:44:00 Test Item Value Reference Range Interpretation Comments Eosinophils (test code = 0.7 See_Comment [A utomated message] The Eosinophils) system which ge nerated this result tra nsmitted reference range : <=4.0. The reference r ozzy was not used to int erpret this result as normal/abnormal . [facility] HospitalWexxjecGHIOSHWADA3454-31-46 06:44:00 Test Item Value Reference Range Interpretation Comments Lymphocytes (test code = Lymphocytes) 21.3 20.0-40.0 [facility] HospitalNjjuhcuHRBYTMOQRB1720-23-53 06:44:00 Test Item Value Reference Range Interpretation Comments Monocytes (test code = Monocytes) 2.7 2.0-12.0 [facility] HospitalKpmrzmvWGMPPPQDZY8925-38-96 06:44:00 Test Item Value Reference Range Interpretation Comments MPV (test code = MPV) 9.5 7.4-10.4 [facility] HospitalZbeywzjYMRPBZIGMZ1662-43-50 06:44:00 Test Item Value Reference Range Interpretation Comments RDW (test code = RDW) 17.8 11.5-14.5 [facility] HospitalKapsxikVUVNTRFGUL6344-50-21 06:44:00 Test Item Value Reference Range Interpretation Comments MCV (test code = MCV) 73.2 80.0-98.0 [facility] HospitalTtbyvekHVWCRIBMIE2865-47-27 06:44:00 Test Item Value Reference Range Interpretation Comments MCH (test code = MCH) 21.9 pg 27.0-31.0 [facility] HospitalRfyyxtaCHFUCVKDTV1046-95-03 06:44:00 Test Item Value Reference Range Interpretation Comments Hct (test code = Hct) 27.2 36.0-48.0 [facility] HospitalGeuvtwvZUCEQMDOLK8040-96-54 06:44:00 Test Item Value Reference Range Interpretation Comments MCHC (test code = MCHC) 29.9 32.0-36.0 [facility] HospitalTinvqhjQLQXMHEENL0689-83-78 06:44:00 Test Item Value Reference Range Interpretation Comments Platelet (test code = Platelet) 400 133-450 [facility] HospitalWcqbtlpRVWLXSSITY1335-72-60 06:44:00 Test Item Value Reference Range Interpretation Comments WBC (test code = WBC) 12.4 3.7-10.4 [facility] HospitalOoqekazKBYLFDBKBR4317-91-23 06:44:00 Test Item Value Reference Range Interpretation Comments RBC (test code = RBC) 3.72 4.20-5.40 [facility] HospitalWxdbowsDOGPTZGDSJ2760-83-02 06:44:00 Test Item Value Reference Range Interpretation Comments Hgb (test code = Hgb) 8.1 12.0-16.0 [facility] HospitalIjhhcrhYLCRWOWNLM8073-95-04 06:44:00 Test Item Value Reference Range Interpretation Comments PTT (test code = PTT) 27.2 s 22.9-35.8 [facility] HospitalDcohnjsADMYWRSONU2016-50-89 06:44:00 Test Item Value Reference Range Interpretation Comments PT (test code = PT) 14.7 s 12.0-14.7 [facility] HospitalAvglnupNIHUWYXZUF6605-31-56 06:44:00 Test Item Value Reference Range Interpretation Comments INR (test code = INR) 1.12 0.85-1.17 [employer] DQKBAGQ7502-71-44 06:44:00 Test Item Value Reference Range Interpretation Comments Antibody Scrn (test Negative (02/13/16 1:44 code = Antibody Scrn) AM) [employer] LTBSJLR6214-93-78 06:44:00 Test Item Value Reference Range Interpretation Comments ABO/Rh (test code = ABO/Rh) A POS [facility]2016-07-03 06:44:00 Test Item Value Reference Range Interpretation Comments CK MB Index (test 1.6 See_Comment [Automate d message] The code = CK MB Index) system w [facility] generated this result transmit gaye reference range : <=2.5. The reference range was not used to interpr et this result as satish l/abnormal. My[facility]2016-07-03 06:44:00 Test Item Value Reference Range Interpretation Comments CK MB (test code = CK MB) 0.9 0.5-3.6 [facility]2016-07-03 06:44:00 Test Item Value Reference Range Interpretation Comments Total CK (test code = Total CK) 57 12-191 [facility]2016-07-03 06:44:00 Test Item Value Reference Range Interpretation Comments Troponin-I (test code no gt See_Comment [Auto mated message] The = Troponin-I) system which g enerated this result transmit gaye reference range : <=0.40. The reference r ozzy was not used to interpr et this result as satish l/abnormal. [employer]2016-07-03 06:44:00 Test Item Value Reference Range Interpretation Comments Albumin Lvl (test code = Albumin Lvl) 3.5 3.5-5.0 [employer]2016-07-03 06:44:00 Test Item Value Reference Range Interpretation Comments Total Protein (test code = Total 7.0 6.4-8.4 Protein) [employer]2016-07-03 06:44:00 Test Item Value Reference Range Interpretation Comments ALT (test code = ALT) 19 See_Comment [Auto mated message] The system which ge nerated this result transmit gaye reference range : <=65. The reference range was not used to interpr et this result as satish l/abnormal. [place] 580146-07-03 06:44:00 Test Item Value Reference Range Interpretation Comments AST (test code = AST) 10 See_Comment [Auto mated message] The system which ge nerated this result transmit gaye reference range : <=37. The reference range was not used to interpr et this result as satish l/abnormal. [place] 580146-07-03 06:44:00 Test Item Value Reference Range Interpretation Comments Alk Phos (test code = Alk Phos) 79 39-136 [place] 580146-07-03 06:44:00 Test Item Value Reference Range Interpretation Comments Bili Total (test code = Bili Total) 0.4 0.2-1.3 [place] 580146-07-03 06:44:00 Test Item Value Reference Range Interpretation [...] (test code = A/G Ratio) 1.0 0.7-1.6 [place] 580146-07-03 06:44:00 Test Item Value Reference Range Interpretation [...] Comments eGFR (test code = eGFR) 107 [place] 580146-07-03 06:44:00 Test Item Value Reference Range Interpretation Comments BUN (test code = BUN) 8 7-22 [place] 580146-07-03 06:44:00 Test Item Value Reference Range Interpretation [...] (test code = Magnesium 2.2 1.8-2.4 Lvl) [facility]CuvuncvOEUJLSLADOVZM3873-74-56 06:44:00 Test Item Value Reference Range Interpretation Comments S Preg (test code = S Negative *NA*(02/13/16 Preg) 1:44 AM) [facility] HospitalUkoqeiaHXZVBYYTVS2096-60-90 06:44:00 Test Item Value Reference Range Interpretation Comments Basophils (test code = 0.1 See_Comment [Aut omated message] The Basophils) system which ge nerated this result tra nsmitted reference range : <=1.0. The reference r ozzy was not used to int erpret this result as normal/abnormal . [facility] HospitalDlukoadWTDUPHWLNC7595-83-15 06:44:00 Test Item Value Reference Range Interpretation Comments Monocytes # (test code 0.3 See_Comment [Aut omated message] The = Monocytes #) system which generated this result tra nsmitted reference range : <=0.8. The reference r ozzy was not used to int erpret this result as normal/abnormal . [facility] HospitalSeyadhjOHXZKKJQNU8113-76-04 06:44:00 Test Item Value Reference Range Interpretation Comments Eosinophils # (test code 0.1 See_Comment [A utomated message] The = Eosinophils #) system whic h generated this result tra nsmitted reference range : <=0.5. The reference r ozzy was not used to int erpret this result as normal/abnormal . [facility] HospitalDnlrbubLCRXMVFKWG7197-21-90 06:44:00 Test Item Value Reference Range Interpretation Comments Segs-Bands # (test code = Segs-Bands #) 9.3 1.5-8.1 [facility] HospitalVnrmdmbEABIBECTTH0859-13-52 06:44:00 Test Item Value Reference Range Interpretation Comments Lymphocytes # (test code = Lymphocytes 2.6 1.0-5.5 #) [facility] HospitalBbmeqacNIYUTRBAFT8851-72-25 06:44:00 Test Item Value Reference Range Interpretation Comments Basophils # (test code 0.0 See_Comment [Aut omated message] The = Basophils #) system which generated this result tra nsmitted reference range : <=0.2. The reference r ozzy was not used to int erpret this result as normal/abnormal . [facility] HospitalNwcnkqvSZLHBQHTBY3717-77-33 06:44:00 Test Item Value Reference Range Interpretation Comments Microcyte (test code = 1+ *ABN*(02/13/16 1:44 Microcyte) AM) [facility] HospitalAhcxyspQHQHSPDHGE4458-90-39 06:44:00 Test Item Value Reference Range Interpretation Comments Giant Plt (test code Moderate *ABN*(02/13/16 = Giant Plt) 1:44 AM) [facility] HospitalPvbezquZZIGAQRQUR8905-91-30 06:44:00 Test Item Value Reference Range Interpretation Comments Segs (test code = Segs) 75.2 45.0-75.0 [facility] HospitalVqswmajOJYPCAZBDK9831-39-05 06:44:00 Test Item Value Reference Range Interpretation Comments Hypochrom (test code = 1+ (02/13/16 1:44 AM) Hypochrom) [facility] HospitalApscrswQYHHEMMUVY4204-27-50 06:44:00 Test Item Value Reference Range Interpretation Comments Eosinophils (test code = 0.7 See_Comment [A utomated message] The Eosinophils) system which ge nerated this result tra nsmitted reference range : <=4.0. The reference r ozzy was not used to int erpret this result as normal/abnormal . [facility] HospitalPmvkorbSFCYZVANJT8180-00-25 06:44:00 Test Item Value Reference Range Interpretation Comments Lymphocytes (test code = Lymphocytes) 21.3 20.0-40.0 [facility] HospitalRxqkbujMJQVSDMYFZ0742-67-42 06:44:00 Test Item Value Reference Range Interpretation Comments Monocytes (test code = Monocytes) 2.7 2.0-12.0 [facility] Hospital[facility]spzaplZVHLFRQPAJ7238-75-92 06:44:00 Test Item Value Reference Range Interpretation Comments MPV (test code = MPV) 9.5 7.4-10.4 [facility] HospitalEizrdleXQZPCEWAWY3458-78-62 06:44:00 Test Item Value Reference Range Interpretation Comments RDW (test code = RDW) 17.8 11.5-14.5 [facility] HospitalHsbwepoTWJMDGUKTY5699-38-30 06:44:00 Test Item Value Reference Range Interpretation Comments MCV (test code = MCV) 73.2 80.0-98.0 [facility] HospitalOqlfeftZQVMRZNYXP1770-12-95 06:44:00 Test Item Value Reference Range Interpretation Comments MCH (test code = MCH) 21.9 pg 27.0-31.0 [facility] HospitalGvsxhhlVFGLSSFJLV7509-66-21 06:44:00 Test Item Value Reference Range Interpretation Comments Hct (test code = Hct) 27.2 36.0-48.0 [facility] HospitalNzyaplbCMYCQNOMXA6542-85-76 06:44:00 Test Item Value Reference Range Interpretation Comments MCHC (test code = MCHC) 29.9 32.0-36.0 [facility] HospitalYyawxblQHELBHMREH9937-27-33 06:44:00 Test Item Value Reference Range Interpretation Comments Platelet (test code = Platelet) 400 133-450 [facility] HospitalNxxoydhJOVBGJZAPP5590-96-94 06:44:00 Test Item Value Reference Range Interpretation Comments WBC (test code = WBC) 12.4 3.7-10.4 [facility] HospitalByguojzNCNZSBUSBU3598-28-74 06:44:00 Test Item Value Reference Range Interpretation Comments RBC (test code = RBC) 3.72 4.20-5.40 [facility] UhsejovTNRVLWOBEY8605-77-62 06:44:00 Test Item Value Reference Range Interpretation Comments Hgb (test code = Hgb) 8.1 12.0-16.0 [facility] KifmonoMARFUFNLIK0113-53-62 06:44:00 Test Item Value Reference Range Interpretation Comments PTT (test code = PTT) 27.2 s 22.9-35.8 [facility] DfsobktUKZUBDAKJJ3006-32-22 06:44:00 Test Item Value Reference Range Interpretation Comments PT (test code = PT) 14.7 s 12.0-14.7 [facility] RhmtrmwQQKONJTWYM3322-41-91 06:44:00 Test Item Value Reference Range Interpretation Comments INR (test code = INR) 1.12 0.85-1.17 [employer] QCTQYGZ4641-54-05 06:44:00 Test Item Value Reference Range Interpretation Comments Antibody Scrn (test Negative (02/13/16 1:44 code = Antibody Scrn) AM) [employer] YYHLXWF6204-78-21 06:44:00 Test Item Value Reference Range Interpretation Comments ABO/Rh (test code = ABO/Rh) A POS My[facility]2016-07-03 06:44:00 Test Item Value Reference Range Interpretation Comments CK MB Index (test 1.6 See_Comment [Automate d message] The code = CK MB Index) system w [facility] generated this result transmit gaye reference range : <=2.5. The reference range was not used to interpr et this result as satish l/abnormal. My[facility]2016-07-03 06:44:00 Test Item Value Reference Range Interpretation Comments CK MB (test code = CK MB) 0.9 0.5-3.6 [facility] [employer]2016-07-03 06:44:00 Test Item Value Reference Range Interpretation Comments Total CK (test code = Total CK) 57 12-191 [facility] [employer]2016-07-03 06:44:00 Test Item Value Reference Range Interpretation [...] (test code = Albumin Lvl) 3.5 3.5-5.0 [place] 580146-07-03 06:44:00 Test Item Value Reference Range Interpretation [...] (test code = Bili Total) 0.4 0.2-1.3 [place] 580146-07-03 06:44:00 Test Item Value Reference Range Interpretation [...] Globulin (test code = Globulin) 3.5 2.0-4.0 [place] 580146-07-03 06:44:00 Test Item Value Reference Range Interpretation [...] (test code = Magnesium 2.2 1.8-2.4 Lvl) [place] [id number] 06:44:00 Test Item Value Reference Range Interpretation Comments S Preg (test code = S Negative *NA*(02/13/16 Preg) 1:44 AM) [facility] HospitalZfrlsdlISDMNZLCAD0031-71-83 06:44:00 Test Item Value Reference Range Interpretation Comments Basophils (test code = 0.1 See_Comment [Aut omated message] The Basophils) system which ge nerated this result tra nsmitted reference range : <=1.0. The reference r ozzy was not used to int erpret this result as normal/abnormal . [facility] HospitalTsqxukkCRTVZABBHP2980-49-57 06:44:00 Test Item Value Reference Range Interpretation Comments Monocytes # (test code 0.3 See_Comment [Aut omated message] The = Monocytes #) system which generated this result tra nsmitted reference range : <=0.8. The reference r ozzy was not used to int erpret this result as normal/abnormal . [facility] HospitalQcszhyzRREWWBKAKX8645-87-59 06:44:00 Test Item Value Reference Range Interpretation Comments Eosinophils # (test code 0.1 See_Comment [A utomated message] The = Eosinophils #) system whic h generated this result tra nsmitted reference range : <=0.5. The reference r ozzy was not used to int erpret this result as normal/abnormal . [facility] HospitalItgnqbxKCAVMJIFZU9444-10-37 06:44:00 Test Item Value Reference Range Interpretation Comments Segs-Bands # (test code = Segs-Bands #) 9.3 1.5-8.1 [facility] HospitalNnbvckqOJBUFJGZKQ0138-30-09 06:44:00 Test Item Value Reference Range Interpretation Comments Lymphocytes # (test code = Lymphocytes 2.6 1.0-5.5 #) [facility] HospitalTsrpdpcXFPINBUWDO9243-54-25 06:44:00 Test Item Value Reference Range Interpretation Comments Basophils # (test code 0.0 See_Comment [Aut omated message] The = Basophils #) system which generated this result tra nsmitted reference range : <=0.2. The reference r ozzy was not used to int erpret this result as normal/abnormal . [facility] HospitalDnuvtszKDCSSUYEJN4341-65-93 06:44:00 Test Item Value Reference Range Interpretation Comments Microcyte (test code = 1+ *ABN*(02/13/16 1:44 Microcyte) AM) [facility] HospitalLsjudacJCXPUXFHDB9567-03-83 06:44:00 Test Item Value Reference Range Interpretation Comments Giant Plt (test code Moderate *ABN*(02/13/16 = Giant Plt) 1:44 AM) [facility] HospitalUeqghsfAJOREXTWYN2751-05-96 06:44:00 Test Item Value Reference Range Interpretation Comments Segs (test code = Segs) 75.2 45.0-75.0 [facility] HospitalLatnhtuJWYOHOALCB3102-57-26 06:44:00 Test Item Value Reference Range Interpretation Comments Hypochrom (test code = 1+ (02/13/16 1:44 AM) Hypochrom) [facility] HospitalBbxfxpeLUCFUJDVBO2369-58-00 06:44:00 Test Item Value Reference Range Interpretation Comments Eosinophils (test code = 0.7 See_Comment [A utomated message] The Eosinophils) system which ge nerated this result tra nsmitted reference range : <=4.0. The reference r ozzy was not used to int erpret this result as normal/abnormal . [facility] HospitalMrwanpmSMASVTHFAR1347-78-02 06:44:00 Test Item Value Reference Range Interpretation Comments Lymphocytes (test code = Lymphocytes) 21.3 20.0-40.0 [facility] HospitalYrxfnixYYNSMCPLWV8564-76-17 06:44:00 Test Item Value Reference Range Interpretation Comments Monocytes (test code = Monocytes) 2.7 2.0-12.0 [facility] HospitalHhqlhgiPNRNFWIBSW8571-36-02 06:44:00 Test Item Value Reference Range Interpretation Comments MPV (test code = MPV) 9.5 7.4-10.4 [facility] HospitalNevrpkcAYFXZVLEOW5728-95-66 06:44:00 Test Item Value Reference Range Interpretation Comments RDW (test code = RDW) 17.8 11.5-14.5 [facility] HospitalLhxarroNKZNYEZGPB3190-36-83 06:44:00 Test Item Value Reference Range Interpretation Comments MCV (test code = MCV) 73.2 80.0-98.0 [facility] HospitalHcvcoibIKSZDKNWIL9722-63-79 06:44:00 Test Item Value Reference Range Interpretation Comments MCH (test code = MCH) 21.9 pg 27.0-31.0 [facility] HospitalZteicmqRSLLDFWGNB1837-77-21 06:44:00 Test Item Value Reference Range Interpretation Comments Hct (test code = Hct) 27.2 36.0-48.0 [facility] SurgeryXmfldbqECLYCHTROV8841-61-04 06:44:00 Test Item Value Reference Range Interpretation Comments MCHC (test code = MCHC) 29.9 32.0-36.0 [facility]CvvkwagTTGXXODIUB0635-82-87 06:44:00 Test Item Value Reference Range Interpretation Comments Platelet (test code = Platelet) 400 133-450 [facility] SjyphggSEDCHPMDCV1114-30-76 06:44:00 Test Item Value Reference Range Interpretation Comments WBC (test code = WBC) 12.4 3.7-10.4 [facility] DallasCciwojmJHAKUTQIWG4437-13-80 06:44:00 Test Item Value Reference Range Interpretation Comments RBC (test code = RBC) 3.72 4.20-5.40 [facility] SurgeryCyhgnvbPEHKRBRDAA3742-98-73 06:44:00 Test Item Value Reference Range Interpretation Comments Hgb (test code = Hgb) 8.1 12.0-16.0 [facility] DallasYuqpovkNFJEYZTUCE2353-28-36 06:44:00 Test Item Value Reference Range Interpretation Comments PTT (test code = PTT) 27.2 s 22.9-35.8 [facility] HospitalWiyhtzdNQKGRILWII6019-22-67 06:44:00 Test Item Value Reference Range Interpretation Comments PT (test code = PT) 14.7 s 12.0-14.7 [facility] DallasUrcrtecTIDLGOBXZL8919-55-96 06:44:00 Test Item Value Reference Range Interpretation Comments INR (test code = INR) 1.12 0.85-1.17 [facility] [employer] YEWGWWP2072-45-33 06:44:00 Test Item Value Reference Range Interpretation Comments Antibody Scrn (test Negative (02/13/16 1:44 code = Antibody Scrn) AM) [facility] [employer] [id number] 06:44:00 Test Item Value Reference Range Interpretation Comments ABO/Rh (test code = ABO/Rh) A POS [facility] DexterraannCARDIAC LYMIGWT2985-51-96 06:44:00 Test Item Value Reference Range Interpretation Comments CK MB Index (test 1.6 See_Comment [Automate d message] The code = CK MB Index) system w [facility] generated this result transmit gaye reference range : <=2.5. The reference range was not used to interpr et this result as satish l/abnormal. [facility] HospitalCircle[facility] SKNDQVL0142-73-91 06:44:00 Test Item Value Reference Range Interpretation Comments CK MB (test code = CK MB) 0.9 0.5-3.6 [facility] DallasSavveo WZILPJU4579-74-00 06:44:00 Test Item Value Reference Range Interpretation Comments Total CK (test code = Total CK) 57 12-191 [facility] HospitalCirc[facility] JHVLZQL5432-49-12 06:44:00 Test Item Value Reference Range Interpretation Comments Troponin-I (test code no gt See_Comment [Auto mated message] The = Troponin-I) system which g enerated this result transmit gaye reference range : <=0.40. The reference r ozzy was not used to interpr et this result as satish l/abnormal. [facility] VIVA IGJMJ1094-16-32 06:44:00 Test Item Value Reference Range Interpretation Comments Albumin Lvl (test code = Albumin Lvl) 3.5 3.5-5.0 [facility] LYMPG5084-55-53 06:44:00 Test Item Value Reference Range Interpretation Comments Total Protein (test code = Total 7.0 6.4-8.4 Protein) [facility] KQKQE3270-08-25 06:44:00 Test Item Value Reference Range Interpretation Comments ALT (test code = ALT) 19 See_Comment [Auto mated message] The system which ge nerated this result transmit gaye reference range : <=65. The reference range was not used to interpr et this result as satish l/abnormal. [facility] VIVA FWPGT9061-44-46 06:44:00 Test Item Value Reference Range Interpretation Comments AST (test code = AST) 10 See_Comment [Auto mated message] The system which ge nerated this result transmit gaye reference range : <=37. The reference range was not used to interpr et this result as satish l/abnormal. [facility] V[facility] UFVDR2987-29-38 06:44:00 Test Item Value Reference Range Interpretation Comments Alk Phos (test code = Alk Phos) 79 39-136 [facility] V[facility] BYDGM9598-94-63 06:44:00 Test Item Value Reference Range Interpretation [...] (test code = A/G Ratio) 1.0 0.7-1.6 [place] 580146-07-03 06:44:00 Test Item Value Reference Range Interpretation [...] (test code = Potassium 3.3 3.5-5.1 Lvl) [place] 580146-07-03 06:44:00 Test Item Value Reference Range Interpretation [...] (test code = Magnesium 2.2 1.8-2.4 Lvl) [facility]RfcbrglLMKFANAQCAEIP8284-34-03 06:44:00 Test Item Value Reference Range Interpretation Comments S Preg (test code = S Negative *NA*(02/13/16 Preg) 1:44 AM) [facility] HospitalAlhnnjlNNKCIEPTDG7611-55-33 06:44:00 Test Item Value Reference Range Interpretation Comments Basophils (test code = 0.1 See_Comment [Aut omated message] The Basophils) system which ge nerated this result tra nsmitted reference range : <=1.0. The reference r ozzy was not used to int erpret this result as normal/abnormal . [facility] HospitalBcdoooeJRIGEVFPCH2166-26-50 06:44:00 Test Item Value Reference Range Interpretation Comments Monocytes # (test code 0.3 See_Comment [Aut omated message] The = Monocytes #) system which generated this result tra nsmitted reference range : <=0.8. The reference r ozzy was not used to int erpret this result as normal/abnormal . [facility] HospitalQjmmyqpKCVNEITMQW4902-89-41 06:44:00 Test Item Value Reference Range Interpretation Comments Eosinophils # (test code 0.1 See_Comment [A utomated message] The = Eosinophils #) system whic h generated this result tra nsmitted reference range : <=0.5. The reference r ozzy was not used to int erpret this result as normal/abnormal . [facility] HospitalPhvuggtAFPYFBKCMS7017-44-70 06:44:00 Test Item Value Reference Range Interpretation Comments Segs-Bands # (test code = Segs-Bands #) 9.3 1.5-8.1 [facility] HospitalFiarpciZQXJSDPRQX6572-88-61 06:44:00 Test Item Value Reference Range Interpretation Comments Lymphocytes # (test code = Lymphocytes 2.6 1.0-5.5 #) [facility] HospitalClldjpiGNHGUWLPLZ5441-51-46 06:44:00 Test Item Value Reference Range Interpretation Comments Basophils # (test code 0.0 See_Comment [Aut omated message] The = Basophils #) system which generated this result tra nsmitted reference range : <=0.2. The reference r ozzy was not used to int erpret this result as normal/abnormal . [facility] HospitalExaggudVOZSXSWCID9925-00-75 06:44:00 Test Item Value Reference Range Interpretation Comments Microcyte (test code = 1+ *ABN*(02/13/16 1:44 Microcyte) AM) [facility] HospitalTfeouqlDRKNFAUDKY4639-80-53 06:44:00 Test Item Value Reference Range Interpretation Comments Giant Plt (test code Moderate *ABN*(02/13/16 = Giant Plt) 1:44 AM) [facility] HospitalBfxjcjuIBCBMGLCHO8421-40-00 06:44:00 Test Item Value Reference Range Interpretation Comments Segs (test code = Segs) 75.2 45.0-75.0 [facility] HospitalLyolnjjKLUAGKVQAL1231-77-38 06:44:00 Test Item Value Reference Range Interpretation Comments Hypochrom (test code = 1+ (02/13/16 1:44 AM) Hypochrom) [facility] HospitalLkwpawgPUVBUVFLZK9393-25-54 06:44:00 Test Item Value Reference Range Interpretation Comments Eosinophils (test code = 0.7 See_Comment [A utomated message] The Eosinophils) system which ge nerated this result tra nsmitted reference range : <=4.0. The reference r ozzy was not used to int erpret this result as normal/abnormal . [facility] HospitalZorrztgIDASPIOTRJ7761-00-96 06:44:00 Test Item Value Reference Range Interpretation Comments Lymphocytes (test code = Lymphocytes) 21.3 20.0-40.0 [facility] HospitalEbdulqcSIDJNNHNHE1698-22-26 06:44:00 Test Item Value Reference Range Interpretation Comments Monocytes (test code = Monocytes) 2.7 2.0-12.0 [facility] HospitalAhitdbeAKJCYKBXLO8592-76-87 06:44:00 Test Item Value Reference Range Interpretation Comments MPV (test code = MPV) 9.5 7.4-10.4 [facility] HospitalEmebpobJVWKSSODSY9272-58-68 06:44:00 Test Item Value Reference Range Interpretation Comments RDW (test code = RDW) 17.8 11.5-14.5 [facility] HospitalTbkrhyrHSXTEKRSPD4285-36-42 06:44:00 Test Item Value Reference Range Interpretation Comments MCV (test code = MCV) 73.2 80.0-98.0 [facility] HospitalAyeahmwPCAPZXWRAP5428-96-07 06:44:00 Test Item Value Reference Range Interpretation Comments MCH (test code = MCH) 21.9 pg 27.0-31.0 [facility] HospitalJylwmlxXMGSGBBUPJ1057-89-32 06:44:00 Test Item Value Reference Range Interpretation Comments Hct (test code = Hct) 27.2 36.0-48.0 [facility] HospitalSqajxtrNUJQOISMJE0318-46-40 06:44:00 Test Item Value Reference Range Interpretation Comments MCHC (test code = MCHC) 29.9 32.0-36.0 [facility] HospitalAblpbgiRRFBJSOSZT3002-73-80 06:44:00 Test Item Value Reference Range Interpretation Comments Platelet (test code = Platelet) 400 133-450 [facility] HospitalGemhkpgGKYIIPYXSH4125-56-66 06:44:00 Test Item Value Reference Range Interpretation Comments WBC (test code = WBC) 12.4 3.7-10.4 [facility] HospitalBgrsilxZMFEEBYQBG9868-55-98 06:44:00 Test Item Value Reference Range Interpretation Comments RBC (test code = RBC) 3.72 4.20-5.40 [facility] HospitalMiurzcmHGMYHKCKPG7020-08-40 06:44:00 Test Item Value Reference Range Interpretation Comments Hgb (test code = Hgb) 8.1 12.0-16.0 [facility] HospitalNqlydmsEBOQHSWZOB1342-25-23 06:44:00 Test Item Value Reference Range Interpretation Comments PTT (test code = PTT) 27.2 s 22.9-35.8 [facility] HospitalZndavueVGUSEAOGAB4549-17-99 06:44:00 Test Item Value Reference Range Interpretation Comments PT (test code = PT) 14.7 s 12.0-14.7 [facility] HospitalNlhmnayTESTECYUAD1323-70-24 06:44:00 Test Item Value Reference Range Interpretation Comments INR (test code = INR) 1.12 0.85-1.17 [facility] [employer] TQLJTVA6831-02-01 06:44:00 Test Item Value Reference Range Interpretation Comments Antibody Scrn (test Negative (02/13/16 1:44 code = Antibody Scrn) AM) [employer] UOGZVYU4587-89-07 06:44:00 Test Item Value Reference Range Interpretation Comments ABO/Rh (test code = ABO/Rh) A POS [employer] [id number] 06:44:00 Test Item Value Reference Range Interpretation Comments CK MB Index (test 1.6 See_Comment [Automate d message] The code = CK MB Index) system w [facility] generated this result transmit gaye reference range : <=2.5. The reference range was not used to interpr et this result as satish l/abnormal. MyVR2016-07-03 06:44:00 Test Item Value Reference Range Interpretation Comments CK MB (test code = CK MB) 0.9 0.5-3.6 [facility] [employer]2016-07-03 06:44:00 Test Item Value Reference Range Interpretation Comments Total CK (test code = Total CK) 57 12-191 [facility] [employer] [facility]2016-07-03 06:44:00 Test Item Value Reference Range Interpretation Comments Troponin-I (test code no gt See_Comment [Auto mated message] The = Troponin-I) system which g enerated this result transmit gaye reference range : <=0.40. The reference r ozzy was not used to interpr et this result as satish l/abnormal. [facility] ? [id number] 06:44:00 Test Item Value Reference Range Interpretation Comments Albumin Lvl (test code = Albumin Lvl) 3.5 3.5-5.0 [facility] [id number] 06:44:00 Test Item Value Reference Range Interpretation Comments Total Protein (test code = Total 7.0 6.4-8.4 Protein) [facility] ? [id number] 06:44:00 Test Item Value Reference Range Interpretation Comments ALT (test code = ALT) 19 See_Comment [Auto mated message] The system which ge nerated this result transmit gaye reference range : <=65. The reference range was not used to interpr et this result as satish l/abnormal. [facility] OLEWR5073-03-58 06:44:00 Test Item Value Reference Range Interpretation Comments AST (test code = AST) 10 See_Comment [Auto mated message] The system which ge nerated this result transmit gaye reference range : <=37. The reference range was not used to interpr et this result as satish l/abnormal. [facility] [id number] 06:44:00 Test Item Value Reference Range Interpretation Comments Alk Phos (test code = Alk Phos) 79 39-136 [facility] YBCVQ8709-94-12 06:44:00 Test Item Value Reference Range Interpretation Comments Bili Total (test code = Bili Total) 0.4 0.2-1.3 [facility] [id number] 06:44:00 Test Item Value Reference Range Interpretation Comments Bili Direct (test code 0.1 See_Comment [Aut omated message] The = Bili Direct) system which generated this result tra nsmitted reference range : <=0.3. The reference r ozzy was not used to int erpret this result as satish l/abnormal. [facility] QJBHQ6323-24-16 06:44:00 Test Item Value Reference Range Interpretation Comments Globulin (test code = Globulin) 3.5 2.0-4.0 [facility] [id number] 06:44:00 Test Item Value Reference Range Interpretation Comments A/G Ratio (test code = A/G Ratio) 1.0 0.7-1.6 [facility] [id number] 06:44:00 Test Item Value Reference Range Interpretation Comments Bili Indirect (test 0.3 See_Comment [Automa gaye message] The code = Bili Indirect) system which generated this result tra nsmitted reference range : <=1.0. The reference r ozzy was not used to int erpret this result as normal/abnormal . [facility] [id number] 06:44:00 Test Item Value Reference Range Interpretation Comments eGFR (test code = eGFR) 107 [facility] [id number] 06:44:00 Test Item Value Reference Range Interpretation [...] (test code = Magnesium 2.2 1.8-2.4 Lvl) [facility] CenterWehvdumTDUNQKDHHBRZQ5780-06-73 06:44:00 Test Item Value Reference Range Interpretation Comments S Preg (test code = S Negative *NA*(02/13/16 Preg) 1:44 AM) [facility] SurgeryUydhxhgCSXGOQUXNP6527-62-25 06:44:00 Test Item Value Reference Range Interpretation Comments Basophils (test code = 0.1 See_Comment [Aut omated message] The Basophils) system which ge nerated this result tra nsmitted reference range : <=1.0. The reference r ozzy was not used to int erpret this result as normal/abnormal . [facility] HospitalXrdwyecAGOENYYNTM6620-71-47 06:44:00 Test Item Value Reference Range Interpretation Comments Monocytes # (test code 0.3 See_Comment [Aut omated message] The = Monocytes #) system which generated this result tra nsmitted reference range : <=0.8. The reference r ozzy was not used to int erpret this result as normal/abnormal . [facility] HospitalGerxwysJSABPSPSGT2900-09-81 06:44:00 Test Item Value Reference Range Interpretation Comments Eosinophils # (test code 0.1 See_Comment [A utomated message] The = Eosinophils #) system whic h generated this result tra nsmitted reference range : <=0.5. The reference r ozzy was not used to int erpret this result as normal/abnormal . [facility] HospitalOilwjemLTJNRXKNSM5305-86-13 06:44:00 Test Item Value Reference Range Interpretation Comments Segs-Bands # (test code = Segs-Bands #) 9.3 1.5-8.1 [facility] HospitalVvtliuyPQSUJWLODE5214-20-49 06:44:00 Test Item Value Reference Range Interpretation Comments Lymphocytes # (test code = Lymphocytes 2.6 1.0-5.5 #) [facility] HospitalXmhnjafPQELZZAOYC6638-61-44 06:44:00 Test Item Value Reference Range Interpretation Comments Basophils # (test code 0.0 See_Comment [Aut omated message] The = Basophils #) system which generated this result tra nsmitted reference range : <=0.2. The reference r ozzy was not used to int erpret this result as normal/abnormal . [facility] HospitalMaaggkrOIOGOLEURP5223-63-76 06:44:00 Test Item Value Reference Range Interpretation Comments Microcyte (test code = 1+ *ABN*(02/13/16 1:44 Microcyte) AM) [facility] HospitalUnmwdllLHZFLAGDAP6070-67-30 06:44:00 Test Item Value Reference Range Interpretation Comments Giant Plt (test code Moderate *ABN*(02/13/16 = Giant Plt) 1:44 AM) [facility] HospitalRvigmbjUFWFXNLEQF0528-43-47 06:44:00 Test Item Value Reference Range Interpretation Comments Segs (test code = Segs) 75.2 45.0-75.0 [facility] HospitalSvmbhkoKZUSBKWIFI5005-80-84 06:44:00 Test Item Value Reference Range Interpretation Comments Hypochrom (test code = 1+ (02/13/16 1:44 AM) Hypochrom) [facility] HospitalGvlsssiWIVMJPKLWY7406-10-85 06:44:00 Test Item Value Reference Range Interpretation Comments Eosinophils (test code = 0.7 See_Comment [A utomated message] The Eosinophils) system which ge nerated this result tra nsmitted reference range : <=4.0. The reference r ozzy was not used to int erpret this result as normal/abnormal . [facility] HospitalRtglclzUFJXFNCNHQ0722-25-70 06:44:00 Test Item Value Reference Range Interpretation Comments Lymphocytes (test code = Lymphocytes) 21.3 20.0-40.0 [facility] HospitalZtjubuaWFGSIDWQPE0367-89-14 06:44:00 Test Item Value Reference Range Interpretation Comments Monocytes (test code = Monocytes) 2.7 2.0-12.0 [facility] HospitalOnvvndiIRQBGQACTB4328-30-29 06:44:00 Test Item Value Reference Range Interpretation Comments MPV (test code = MPV) 9.5 7.4-10.4 [facility] HospitalQghvpwiQUKXNUPJPN6704-96-45 06:44:00 Test Item Value Reference Range Interpretation Comments RDW (test code = RDW) 17.8 11.5-14.5 [facility] HospitalFglrzdjJEXNNNQOWY3546-57-66 06:44:00 Test Item Value Reference Range Interpretation Comments MCV (test code = MCV) 73.2 80.0-98.0 [facility] HospitalOzfersdUTZMZICCWV9099-70-54 06:44:00 Test Item Value Reference Range Interpretation Comments MCH (test code = MCH) 21.9 pg 27.0-31.0 [facility] HospitalYfqgnzsHGAJGBVGRX6057-22-99 06:44:00 Test Item Value Reference Range Interpretation Comments Hct (test code = Hct) 27.2 36.0-48.0 [facility] HospitalIzxbmboMZLBKEDNMY9185-18-93 06:44:00 Test Item Value Reference Range Interpretation Comments MCHC (test code = MCHC) 29.9 32.0-36.0 [facility] HospitalRrkehuxWUNVXCMIZE3669-88-84 06:44:00 Test Item Value Reference Range Interpretation Comments Platelet (test code = Platelet) 400 133-450 [facility] HospitalBvqswlvBNFVOEIPCU8449-93-92 06:44:00 Test Item Value Reference Range Interpretation Comments WBC (test code = WBC) 12.4 3.7-10.4 [facility] GlmlplwBRKERWAVGW4914-49-41 06:44:00 Test Item Value Reference Range Interpretation Comments RBC (test code = RBC) 3.72 4.20-5.40 [facility] HyewynzBDGXXHTQMC9157-62-90 06:44:00 Test Item Value Reference Range Interpretation Comments Hgb (test code = Hgb) 8.1 12.0-16.0 [facility] UikdftkUXFHHPKHHN4628-96-24 06:44:00 Test Item Value Reference Range Interpretation Comments PTT (test code = PTT) 27.2 s 22.9-35.8 [facility] IglbaroCUXHTVODJT6910-60-83 06:44:00 Test Item Value Reference Range Interpretation Comments PT (test code = PT) 14.7 s 12.0-14.7 [facility] GrxpovwCWLCKNSYLW0080-78-13 06:44:00 Test Item Value Reference Range Interpretation Comments INR (test code = INR) 1.12 0.85-1.17 [employer] [id number] 06:44:00 Test Item Value Reference Range Interpretation Comments Antibody Scrn (test Negative (02/13/16 1:44 code = Antibody Scrn) AM) [employer] RVDPKQP3758-56-68 06:44:00 Test Item Value Reference Range Interpretation Comments ABO/Rh (test code = ABO/Rh) A POS [facility]2016-07-03 06:44:00 Test Item Value Reference Range Interpretation Comments CK MB Index (test 1.6 See_Comment [Automate d message] The code = CK MB Index) system w [facility] generated this result transmit gaye reference range : <=2.5. The reference range was not used to interpr et this result as satish l/abnormal. [employer]2016-07-03 06:44:00 Test Item Value Reference Range Interpretation Comments CK MB (test code = CK MB) 0.9 0.5-3.6 [facility] [employer]2016-07-03 06:44:00 Test Item Value Reference Range Interpretation Comments Total CK (test code = Total CK) 57 12-191 [facility] [employer]2016-07-03 06:44:00 Test Item Value Reference Range Interpretation Comments Troponin-I (test code no gt See_Comment [Auto mated message] The = Troponin-I) system which g enerated this result transmit gaye reference range : <=0.40. The reference r ozzy was not used to interpr et this result as satish l/abnormal. [facility] [employer] [id number] 06:44:00 Test Item Value Reference Range Interpretation Comments Albumin Lvl (test code = Albumin Lvl) 3.5 3.5-5.0 [facility]2016-07-03 06:44:00 Test [...] this result as satish l/abnormal. [facility] [employer] [id number] 06:44:00 Test Item Value Reference Range Interpretation Comments AST (test code = AST) 10 See_Comment [Auto mated message] The system which ge nerated this result transmit gaye reference range : <=37. The reference range was not used to interpr et this result as satish l/abnormal. [facility] [employer] [id number] 06:44:00 Test Item Value Reference Range Interpretation Comments Alk Phos (test code = Alk Phos) 79 39-136 [facility] [id number] 06:44:00 Test Item Value Reference Range Interpretation Comments Bili Total (test code = Bili Total) 0.4 0.2-1.3 [facility] [employer] [id number] 06:44:00 Test Item Value Reference Range Interpretation Comments Bili Direct (test code 0.1 See_Comment [Aut omated message] The = Bili Direct) system which generated this result tra nsmitted reference range : <=0.3. The reference r ozzy was not used to int erpret this result as satish l/abnormal. [facility] [id number] 06:44:00 Test Item Value Reference Range Interpretation [...] (test code = Magnesium 2.2 1.8-2.4 Lvl) [place] [id number] 06:44:00 Test Item Value Reference Range Interpretation Comments S Preg (test code = S Negative *NA*(02/13/16 Preg) 1:44 AM) [facility] HospitalWukokxnEXSHGIMWYM2332-04-97 06:44:00 Test Item Value Reference Range Interpretation Comments Basophils (test code = 0.1 See_Comment [Aut omated message] The Basophils) system which ge nerated this result tra nsmitted reference range : <=1.0. The reference r ozzy was not used to int erpret this result as normal/abnormal . [facility] HospitalLnsxasdBVUZRUSLXU2286-47-46 06:44:00 Test Item Value Reference Range Interpretation Comments Monocytes # (test code 0.3 See_Comment [Aut omated message] The = Monocytes #) system which generated this result tra nsmitted reference range : <=0.8. The reference r ozzy was not used to int erpret this result as normal/abnormal . [facility] HospitalYgysrdlTPBEWGXTBY4889-94-10 06:44:00 Test Item Value Reference Range Interpretation Comments Eosinophils # (test code 0.1 See_Comment [A utomated message] The = Eosinophils #) system whic h generated this result tra nsmitted reference range : <=0.5. The reference r ozzy was not used to int erpret this result as normal/abnormal . [facility] HospitalOkqqqhpZOIUVUYYWX7349-08-91 06:44:00 Test Item Value Reference Range Interpretation Comments Segs-Bands # (test code = Segs-Bands #) 9.3 1.5-8.1 [facility] HospitalTndvoyeLINAWTWZFR6687-19-59 06:44:00 Test Item Value Reference Range Interpretation Comments Lymphocytes # (test code = Lymphocytes 2.6 1.0-5.5 #) [facility] HospitalFazrzhpGCLWCYWEGG1869-37-78 06:44:00 Test Item Value Reference Range Interpretation Comments Basophils # (test code 0.0 See_Comment [Aut omated message] The = Basophils #) system which generated this result tra nsmitted reference range : <=0.2. The reference r ozzy was not used to int erpret this result as normal/abnormal . [facility] HospitalQlntyukDXVFGHQKUP2995-31-18 06:44:00 Test Item Value Reference Range Interpretation Comments Microcyte (test code = 1+ *ABN*(02/13/16 1:44 Microcyte) AM) [facility] HospitalHxnwldsBUEOKMCHKL4033-54-16 06:44:00 Test Item Value Reference Range Interpretation Comments Giant Plt (test code Moderate *ABN*(02/13/16 = Giant Plt) 1:44 AM) [facility] HospitalUdgbpffNLGVXLKTNT3161-59-71 06:44:00 Test Item Value Reference Range Interpretation Comments Segs (test code = Segs) 75.2 45.0-75.0 [facility] HospitalYkeenawBJVEECIGHD8057-59-57 06:44:00 Test Item Value Reference Range Interpretation Comments Hypochrom (test code = 1+ (02/13/16 1:44 AM) Hypochrom) [facility] HospitalQqsidksDJFMQTFIJJ9364-10-32 06:44:00 Test Item Value Reference Range Interpretation Comments Eosinophils (test code = 0.7 See_Comment [A utomated message] The Eosinophils) system which ge nerated this result tra nsmitted reference range : <=4.0. The reference r ozzy was not used to int erpret this result as normal/abnormal . [facility] HospitalIhpkgaxPUIPRGNPQF3341-04-61 06:44:00 Test Item Value Reference Range Interpretation Comments Lymphocytes (test code = Lymphocytes) 21.3 20.0-40.0 [facility] HospitalEczbywcPOKFEQGOYO7734-39-38 06:44:00 Test Item Value Reference Range Interpretation Comments Monocytes (test code = Monocytes) 2.7 2.0-12.0 [facility] HospitalDcovphqQQBLAYBKVD8501-13-63 06:44:00 Test Item Value Reference Range Interpretation Comments MPV (test code = MPV) 9.5 7.4-10.4 [facility] HospitalSemdkzaHHGUFQJMFC3674-79-60 06:44:00 Test Item Value Reference Range Interpretation Comments RDW (test code = RDW) 17.8 11.5-14.5 [facility] HospitalBwujuirNNWKZYYJPR2203-42-96 06:44:00 Test Item Value Reference Range Interpretation Comments MCV (test code = MCV) 73.2 80.0-98.0 [facility] HospitalDihgftjFJIIIGVLSU9799-78-60 06:44:00 Test Item Value Reference Range Interpretation Comments MCH (test code = MCH) 21.9 pg 27.0-31.0 [facility] SurgeryHojsarrZMOZAXZLFZ5715-56-44 06:44:00 Test Item Value Reference Range Interpretation Comments Hct (test code = Hct) 27.2 36.0-48.0 [facility] SurgeryDctomvsJYMAPZSEVW0595-80-38 06:44:00 Test Item Value Reference Range Interpretation Comments MCHC (test code = MCHC) 29.9 32.0-36.0 [facility] SurgeryXtplmehVKGZGZKOYD0755-84-62 06:44:00 Test Item Value Reference Range Interpretation Comments Platelet (test code = Platelet) 400 133-450 [facility] DallasGgakoupEMRFLVOBSC7802-03-19 06:44:00 Test Item Value Reference Range Interpretation Comments WBC (test code = WBC) 12.4 3.7-10.4 [facility] DallasQhqcgdrBMGDGQTMLR2508-21-44 06:44:00 Test Item Value Reference Range Interpretation Comments RBC (test code = RBC) 3.72 4.20-5.40 [facility] DallasBuypvzpVNCTFQHTIJ3750-85-51 06:44:00 Test Item Value Reference Range Interpretation Comments Hgb (test code = Hgb) 8.1 12.0-16.0 [facility] DallasUkvsofsIBLBUCPSKL3611-86-84 06:44:00 Test Item Value Reference Range Interpretation Comments PTT (test code = PTT) 27.2 s 22.9-35.8 [facility] DallasNxuoltqQICNJXHTYT5460-24-84 06:44:00 Test Item Value Reference Range Interpretation Comments PT (test code = PT) 14.7 s 12.0-14.7 [facility] DallasVlckktoNIUIZKSBPC0733-83-37 06:44:00 Test Item Value Reference Range Interpretation Comments INR (test code = INR) 1.12 0.85-1.17 [facility] [employer] LRDRQJD5002-16-10 06:44:00 Test Item Value Reference Range Interpretation Comments Antibody Scrn (test Negative (02/13/16 1:44 code = Antibody Scrn) AM) [facility] [employer] [id number] 06:44:00 Test Item Value Reference Range Interpretation Comments ABO/Rh (test code = ABO/Rh) A POS [facility] HospitalannCARDIAC FLVBRJD4209-49-29 06:44:00 Test Item Value Reference Range Interpretation Comments CK MB Index (test 1.6 See_Comment [Automate d message] The code = CK MB Index) system w dee dee generated this result transmit gaye reference range : <=2.5. The reference range was not used to interpr et this result as satish l/abnormal. [facility] [employer] REPAYCJ3063-45-74 06:44:00 Test Item Value Reference Range Interpretation Comments CK MB (test code = CK MB) 0.9 0.5-3.6 [facility] [employer] [id number] 06:44:00 Test Item Value Reference Range Interpretation Comments Total CK (test code = Total CK) 57 12-191 [facility] [employer] DECNHZP6072-54-24 06:44:00 Test Item Value Reference Range Interpretation Comments Troponin-I (test code no gt See_Comment [Auto mated message] The = Troponin-I) system which g enerated this result transmit gaye reference range : <=0.40. The reference r ozzy was not used to interpr et this result as satish l/abnormal. [facility] [employer]2016-07-03 06:44:00 Test Item Value Reference Range Interpretation Comments Albumin Lvl (test code = Albumin Lvl) 3.5 3.5-5.0 [facility] [employer]2016-07-03 06:44:00 Test Item Value Reference Range Interpretation Comments Total Protein (test code = Total 7.0 6.4-8.4 Protein) [facility] VIVA [id number] 06:44:00 Test Item Value Reference Range Interpretation Comments ALT (test code = ALT) 19 See_Comment [Auto mated message] The system which ge nerated this result transmit gaye reference range : <=65. The reference range was not used to interpr et this result as satish l/abnormal. AGELON ? [id number] 06:44:00 Test Item Value Reference Range Interpretation Comments AST (test code = AST) 10 See_Comment [Auto mated message] The system which ge nerated this result transmit gaye reference range : <=37. The reference range was not used to interpr et this result as satish l/abnormal. [employer]2016-07-03 06:44:00 Test Item Value Reference Range Interpretation [...] (test code = Creatinine 0.70 0.50-1.40 Lvl) [place] [id number] 06:44:00 Test Item Value Reference Range Interpretation Comments Potassium Lvl (test code = Potassium 3.3 3.5-5.1 Lvl) [facility]2016-07-03 06:44:00 Test Item Value Reference Range Interpretation Comments CO2 (test code = CO2) 25 24-32 [place] [id number] 06:44:00 Test Item Value Reference Range Interpretation [...] (test code = Magnesium 2.2 1.8-2.4 Lvl) [facility]YphtqhlZUCECUPMVQSGV5410-37-91 06:44:00 Test Item Value Reference Range Interpretation Comments S Preg (test code = S Negative *NA*(02/13/16 Preg) 1:44 AM) [facility] HospitalPdszanaWEXFKSRFLL4364-25-37 06:44:00 Test Item Value Reference Range Interpretation Comments Basophils (test code = 0.1 See_Comment [Aut omated message] The Basophils) system which ge nerated this result tra nsmitted reference range : <=1.0. The reference r ozzy was not used to int erpret this result as normal/abnormal . [facility] HospitalVmeziqmUFNVXVUDPP4431-20-21 06:44:00 Test Item Value Reference Range Interpretation Comments Monocytes # (test code 0.3 See_Comment [Aut omated message] The = Monocytes #) system which generated this result tra nsmitted reference range : <=0.8. The reference r ozzy was not used to int erpret this result as normal/abnormal . [facility] HospitalAdqqrtkEFGBJKKRYB3099-29-70 06:44:00 Test Item Value Reference Range Interpretation Comments Eosinophils # (test code 0.1 See_Comment [A utomated message] The = Eosinophils #) system whic h generated this result tra nsmitted reference range : <=0.5. The reference r ozzy was not used to int erpret this result as normal/abnormal . [facility] HospitalLqczoaiDORKZEHOVF4325-91-43 06:44:00 Test Item Value Reference Range Interpretation Comments Segs-Bands # (test code = Segs-Bands #) 9.3 1.5-8.1 [facility] HospitalTlsdesoEANACLGXXR2922-52-73 06:44:00 Test Item Value Reference Range Interpretation Comments Lymphocytes # (test code = Lymphocytes 2.6 1.0-5.5 #) [facility] HospitalHskqizzQDMRIQQDZB9444-66-00 06:44:00 Test Item Value Reference Range Interpretation Comments Basophils # (test code 0.0 See_Comment [Aut omated message] The = Basophils #) system which generated this result tra nsmitted reference range : <=0.2. The reference r ozzy was not used to int erpret this result as normal/abnormal . [facility] HospitalLopicmuFANCPHMKRC2198-72-86 06:44:00 Test Item Value Reference Range Interpretation Comments Microcyte (test code = 1+ *ABN*(02/13/16 1:44 Microcyte) AM) [facility] HospitalJbicilnBHZFYMCGQM1495-60-56 06:44:00 Test Item Value Reference Range Interpretation Comments Giant Plt (test code Moderate *ABN*(02/13/16 = Giant Plt) 1:44 AM) [facility] HospitalGoibpvmFNHNQNNBRH3380-57-72 06:44:00 Test Item Value Reference Range Interpretation Comments Segs (test code = Segs) 75.2 45.0-75.0 [facility] HospitalIvqrskeQGZWKVBBIB5425-40-08 06:44:00 Test Item Value Reference Range Interpretation Comments Hypochrom (test code = 1+ (02/13/16 1:44 AM) Hypochrom) [facility] HospitalAcrgmshUFEFAAEYZS6172-57-85 06:44:00 Test Item Value Reference Range Interpretation Comments Eosinophils (test code = 0.7 See_Comment [A utomated message] The Eosinophils) system which ge nerated this result tra nsmitted reference range : <=4.0. The reference r ozzy was not used to int erpret this result as normal/abnormal . [facility] HospitalMowhtryPCUWREPHYM6119-36-53 06:44:00 Test Item Value Reference Range Interpretation Comments Lymphocytes (test code = Lymphocytes) 21.3 20.0-40.0 [facility] HospitalTkewoplFVQQRLGDPR1906-37-87 06:44:00 Test Item Value Reference Range Interpretation Comments Monocytes (test code = Monocytes) 2.7 2.0-12.0 [facility] HospitalQbpnfdlPKLXBUKMEC4905-24-64 06:44:00 Test Item Value Reference Range Interpretation Comments MPV (test code = MPV) 9.5 7.4-10.4 [facility] HospitalBokkhafKDRRIWKFER8229-99-59 06:44:00 Test Item Value Reference Range Interpretation Comments RDW (test code = RDW) 17.8 11.5-14.5 [facility] HospitalDsmuhomOQTWKYNTKA4619-29-89 06:44:00 Test Item Value Reference Range Interpretation Comments MCV (test code = MCV) 73.2 80.0-98.0 [facility] HospitalExkqwfvCERCGWOZWI7633-82-81 06:44:00 Test Item Value Reference Range Interpretation Comments MCH (test code = MCH) 21.9 pg 27.0-31.0 [facility] HospitalZltjspoTNONKWJJJQ5732-07-55 06:44:00 Test Item Value Reference Range Interpretation Comments Hct (test code = Hct) 27.2 36.0-48.0 [facility] HospitalSuxqvkeSJASKRUJHL5426-94-58 06:44:00 Test Item Value Reference Range Interpretation Comments MCHC (test code = MCHC) 29.9 32.0-36.0 [facility] HospitalRbkoonkKKADDYRSRX9779-88-44 06:44:00 Test Item Value Reference Range Interpretation Comments Platelet (test code = Platelet) 400 133-450 [facility] HospitalYtfcieiQQUPVGEVWF7660-05-19 06:44:00 Test Item Value Reference Range Interpretation Comments WBC (test code = WBC) 12.4 3.7-10.4 [facility] HospitalXbkphkrYOMJCTACEO2669-38-18 06:44:00 Test Item Value Reference Range Interpretation Comments RBC (test code = RBC) 3.72 4.20-5.40 [facility] HospitalDbjhoqiUKXDGQBAIG7227-57-00 06:44:00 Test Item Value Reference Range Interpretation Comments Hgb (test code = Hgb) 8.1 12.0-16.0 [facility] HospitalIawzqdgORGUKRJIFN5420-03-21 06:44:00 Test Item Value Reference Range Interpretation Comments PTT (test code = PTT) 27.2 s 22.9-35.8 [facility] SurgeryKyrfsvtXEMTDVOSRB8103-56-02 06:44:00 Test Item Value Reference Range Interpretation Comments PT (test code = PT) 14.7 s 12.0-14.7 [facility] LrwbnuzOWUTIUFESQ7569-11-90 06:44:00 Test Item Value Reference Range Interpretation Comments INR (test code = INR) 1.12 0.85-1.17 [facility] [employer] [id number] 06:44:00 Test Item Value Reference Range Interpretation Comments Antibody Scrn (test Negative (02/13/16 1:44 code = Antibody Scrn) AM) [facility] [employer] [id number] 06:44:00 Test Item Value Reference Range Interpretation Comments ABO/Rh (test code = ABO/Rh) A POS [facility] [employer]2016-07-03 06:44:00 Test Item Value Reference Range Interpretation Comments CK MB Index (test 1.6 See_Comment [Automate d message] The code = CK MB Index) system w [facility] generated this result transmit gaye reference range : <=2.5. The reference range was not used to interpr et this result as satish l/abnormal. [employer]2016-07-03 06:44:00 Test Item Value Reference Range Interpretation Comments CK MB (test code = CK MB) 0.9 0.5-3.6 [facility] [employer] [facility]2016-07-03 06:44:00 Test Item Value Reference Range Interpretation Comments Total CK (test code = Total CK) 57 12-191 [facility] [employer] [facility]2016-07-03 06:44:00 Test Item Value Reference Range Interpretation Comments Troponin-I (test code no gt See_Comment [Auto mated message] The = Troponin-I) system which g enerated this result transmit gaye reference range : <=0.40. The reference r ozzy was not used to interpr et this result as satish l/abnormal. AGELON ? [id number] 06:44:00 Test Item Value Reference Range Interpretation Comments Albumin Lvl (test code = Albumin Lvl) 3.5 3.5-5.0 AGELON ? [id number] 06:44:00 Test Item Value Reference Range Interpretation Comments Total Protein (test code = Total 7.0 6.4-8.4 Protein) [facility] HospitalStartup NetworkRILEY VILLE [id number] 06:44:00 Test Item Value Reference Range Interpretation Comments ALT (test code = ALT) 19 See_Comment [Auto mated message] The system which ge nerated this result transmit gaye reference range : <=65. The reference range was not used to interpr et this result as satish l/abnormal. [facility] HospitalAs[facility] [id number] 06:44:00 Test Item Value Reference Range Interpretation Comments AST (test code = AST) 10 See_Comment [Auto mated message] The system which ge nerated this result transmit gaye reference range : <=37. The reference range was not used to interpr et this result as satish l/abnormal. [facility] [id number] 06:44:00 Test Item Value Reference Range Interpretation Comments Alk Phos (test code = Alk Phos) 79 39-136 [facility]As[facility] [id number] 06:44:00 Test Item Value Reference Range Interpretation Comments Bili Total (test code = Bili Total) 0.4 0.2-1.3 [facility] [employer] [id number] 06:44:00 Test Item Value Reference Range Interpretation Comments Bili Direct (test code 0.1 See_Comment [Aut omated message] The = Bili Direct) system which generated this result tra nsmitted reference range : <=0.3. The reference r ozzy was not used to int erpret this result as satish l/abnormal. [facility] [id number] 06:44:00 Test Item Value Reference Range Interpretation Comments Globulin (test code = Globulin) 3.5 2.0-4.0 [facility] [id number] 06:44:00 Test Item Value Reference Range Interpretation Comments A/G Ratio (test code = A/G Ratio) 1.0 0.7-1.6 [facility] [employer] [id number] 06:44:00 Test Item Value Reference Range Interpretation Comments Bili Indirect (test 0.3 See_Comment [Automa gaye message] The code = Bili Indirect) system which generated this result tra nsmitted reference range : <=1.0. The reference r ozzy was not used to int erpret this result as normal/abnormal . [facility]2016-07-03 06:44:00 Test Item Value Reference Range [...] (test code = Magnesium 2.2 1.8-2.4 Lvl) [facility] CenterDylvswoSNTIWCTACGNKI1055-31-62 06:44:00 Test Item Value Reference Range Interpretation Comments S Preg (test code = S Negative *NA*(02/13/16 Preg) 1:44 AM) [facility] SurgeryNasbukxLIEZAZBNXR9818-66-75 06:44:00 Test Item Value Reference Range Interpretation Comments Basophils (test code = 0.1 See_Comment [Aut omated message] The Basophils) system which ge nerated this result tra nsmitted reference range : <=1.0. The reference r ozzy was not used to int erpret this result as normal/abnormal . [facility] HospitalKdeaiklVHDQFFVGDV6799-41-44 06:44:00 Test Item Value Reference Range Interpretation Comments Monocytes # (test code 0.3 See_Comment [Aut omated message] The = Monocytes #) system which generated this result tra nsmitted reference range : <=0.8. The reference r ozzy was not used to int erpret this result as normal/abnormal . [facility] HospitalFjlbcffGHHDKFQOPO7021-10-25 06:44:00 Test Item Value Reference Range Interpretation Comments Eosinophils # (test code 0.1 See_Comment [A utomated message] The = Eosinophils #) system whic h generated this result tra nsmitted reference range : <=0.5. The reference r ozzy was not used to int erpret this result as normal/abnormal . [facility] HospitalFqfnepcGUINYXDDDM6107-69-93 06:44:00 Test Item Value Reference Range Interpretation Comments Segs-Bands # (test code = Segs-Bands #) 9.3 1.5-8.1 [facility] HospitalHldxbpoTFYKNCTZPR2162-39-53 06:44:00 Test Item Value Reference Range Interpretation Comments Lymphocytes # (test code = Lymphocytes 2.6 1.0-5.5 #) [facility] HospitalCxheodhWQMQPRALZI8827-64-87 06:44:00 Test Item Value Reference Range Interpretation Comments Basophils # (test code 0.0 See_Comment [Aut omated message] The = Basophils #) system which generated this result tra nsmitted reference range : <=0.2. The reference r ozzy was not used to int erpret this result as normal/abnormal . [facility] HospitalHkinupyAUHCEXQTTP7688-07-08 06:44:00 Test Item Value Reference Range Interpretation Comments Microcyte (test code = 1+ *ABN*(02/13/16 1:44 Microcyte) AM) [facility] HospitalXrrsugvUGCQARAREC7088-98-57 06:44:00 Test Item Value Reference Range Interpretation Comments Giant Plt (test code Moderate *ABN*(02/13/16 = Giant Plt) 1:44 AM) [facility] HospitalGjnxgjsFLIXRQMDFD7081-70-62 06:44:00 Test Item Value Reference Range Interpretation Comments Segs (test code = Segs) 75.2 45.0-75.0 [facility] HospitalBbutoliMKZWJYXZAR5185-94-29 06:44:00 Test Item Value Reference Range Interpretation Comments Hypochrom (test code = 1+ (02/13/16 1:44 AM) Hypochrom) [facility] HospitalSozayovDZCECSOVDQ6716-94-60 06:44:00 Test Item Value Reference Range Interpretation Comments Eosinophils (test code = 0.7 See_Comment [A utomated message] The Eosinophils) system which ge nerated this result tra nsmitted reference range : <=4.0. The reference r ozzy was not used to int erpret this result as normal/abnormal . [facility] HospitalDyzcgrwUALMYBNOWU5121-02-82 06:44:00 Test Item Value Reference Range Interpretation Comments Lymphocytes (test code = Lymphocytes) 21.3 20.0-40.0 [facility] HospitalTxcdfqlNPIWGGYMOI9681-19-36 06:44:00 Test Item Value Reference Range Interpretation Comments Monocytes (test code = Monocytes) 2.7 2.0-12.0 [facility] HospitalUqtvyqcRBYYOFWDOE1157-09-49 06:44:00 Test Item Value Reference Range Interpretation Comments MPV (test code = MPV) 9.5 7.4-10.4 [facility] HospitalWyxhsksHUIHFHMVYW1884-60-47 06:44:00 Test Item Value Reference Range Interpretation Comments RDW (test code = RDW) 17.8 11.5-14.5 [facility] HospitalQbbqnlfZYELBFXXQR2939-31-95 06:44:00 Test Item Value Reference Range Interpretation Comments MCV (test code = MCV) 73.2 80.0-98.0 [facility] HospitalWozozxeCXEXNNRYMD8034-34-25 06:44:00 Test Item Value Reference Range Interpretation Comments MCH (test code = MCH) 21.9 pg 27.0-31.0 [facility] HospitalKcqfggwXVKDTCQUTW5898-48-23 06:44:00 Test Item Value Reference Range Interpretation Comments Hct (test code = Hct) 27.2 36.0-48.0 [facility] HospitalBjyqvnwXEQWTWWOWO7198-14-98 06:44:00 Test Item Value Reference Range Interpretation Comments MCHC (test code = MCHC) 29.9 32.0-36.0 [facility] HospitalLuclajzFIQESTDYUO7654-74-90 06:44:00 Test Item Value Reference Range Interpretation Comments Platelet (test code = Platelet) 400 133-450 [facility] TbutnogZBUEIRMFSH8700-08-75 06:44:00 Test Item Value Reference Range Interpretation Comments WBC (test code = WBC) 12.4 3.7-10.4 [facility] HospitalIoajjmeOMVPNAGETR7228-49-32 06:44:00 Test Item Value Reference Range Interpretation Comments RBC (test code = RBC) 3.72 4.20-5.40 [facility] HospitalRijjlzpARCSEQXKNX3505-27-83 06:44:00 Test Item Value Reference Range Interpretation Comments Hgb (test code = Hgb) 8.1 12.0-16.0 [facility] ZizlqbvJDJBXBECKD3900-75-27 06:44:00 Test Item Value Reference Range Interpretation Comments PTT (test code = PTT) 27.2 s 22.9-35.8 [facility] HospitalAoofpgdMCOJYJPZAJ1520-12-60 06:44:00 Test Item Value Reference Range Interpretation Comments PT (test code = PT) 14.7 s 12.0-14.7 [facility] HospitalRpdlmhkKATUVLKIJF3167-41-91 06:44:00 Test Item Value Reference Range Interpretation Comments INR (test code = INR) 1.12 0.85-1.17 [employer] [id number] 06:44:00 Test Item Value Reference Range Interpretation Comments Antibody Scrn (test Negative (02/13/16 1:44 code = Antibody Scrn) AM) [employer] [id number] 06:44:00 Test Item Value Reference Range Interpretation Comments ABO/Rh (test code = ABO/Rh) A POS [facility] [employer]2016-07-03 06:44:00 Test Item Value Reference Range Interpretation Comments CK MB Index (test 1.6 See_Comment [Automate d message] The code = CK MB Index) system w [facility] generated this result transmit gaye reference range : <=2.5. The reference range was not used to interpr et this result as satish l/abnormal. [facility]2016-07-03 06:44:00 Test Item Value Reference Range Interpretation Comments CK MB (test code = CK MB) 0.9 0.5-3.6 [facility] [employer] [facility]2016-07-03 06:44:00 Test Item Value Reference Range Interpretation Comments Total CK (test code = Total CK) 57 12-191 [facility] TFPUYEY0808-97-31 06:44:00 Test Item Value Reference Range Interpretation Comments Troponin-I (test code no gt See_Comment [Auto mated message] The = Troponin-I) system which g enerated this result transmit gaye reference range : <=0.40. The reference r ozzy was not used to interpr et this result as satish l/abnormal. [facility] NDZUQ9684-03-77 06:44:00 Test Item Value Reference Range Interpretation Comments Albumin Lvl (test code = Albumin Lvl) 3.5 3.5-5.0 [facility]As[facility] [id number] 06:44:00 Test Item Value Reference Range Interpretation Comments Total Protein (test code = Total 7.0 6.4-8.4 Protein) [facility] [id number] 06:44:00 Test Item Value Reference Range Interpretation Comments ALT (test code = ALT) 19 See_Comment [Auto mated message] The system which ge nerated this result transmit gaye reference range : <=65. The reference range was not used to interpr et this result as satish l/abnormal. [facility] [id number] 06:44:00 Test Item Value Reference Range Interpretation Comments AST (test code = AST) 10 See_Comment [Auto mated message] The system which ge nerated this result transmit gaye reference range : <=37. The reference range was not used to interpr et this result as satish l/abnormal. [facility] [id number] 06:44:00 Test Item Value Reference Range Interpretation Comments Alk Phos (test code = Alk Phos) 79 39-136 [facility] [id number] 06:44:00 Test Item Value Reference Range Interpretation Comments Bili Total (test code = Bili Total) 0.4 0.2-1.3 [facility] [id number] 06:44:00 Test Item Value Reference Range Interpretation [...] (test code = A/G Ratio) 1.0 0.7-1.6 [place] [id number] 06:44:00 Test Item Value Reference Range Interpretation [...] (test code = Magnesium 2.2 1.8-2.4 Lvl) [facility]MchbkezVVBZYHXQJARYR3024-54-09 06:44:00 Test Item Value Reference Range Interpretation Comments S Preg (test code = S Negative *NA*(02/13/16 Preg) 1:44 AM) [facility] HospitalWfwrccxFEQWGDBWXZ4416-47-63 06:44:00 Test Item Value Reference Range Interpretation Comments Basophils (test code = 0.1 See_Comment [Aut omated message] The Basophils) system which ge nerated this result tra nsmitted reference range : <=1.0. The reference r ozzy was not used to int erpret this result as normal/abnormal . [facility] HospitalUbstcxhQGRKRQQQHI4384-92-47 06:44:00 Test Item Value Reference Range Interpretation Comments Monocytes # (test code 0.3 See_Comment [Aut omated message] The = Monocytes #) system which generated this result tra nsmitted reference range : <=0.8. The reference r ozzy was not used to int erpret this result as normal/abnormal . [facility] HospitalFjnjnklJFEUIZHYTV0851-90-72 06:44:00 Test Item Value Reference Range Interpretation Comments Eosinophils # (test code 0.1 See_Comment [A utomated message] The = Eosinophils #) system whic h generated this result tra nsmitted reference range : <=0.5. The reference r ozzy was not used to int erpret this result as normal/abnormal . [facility] HospitalQbkxbbaJQIUQXCCPY0889-09-65 06:44:00 Test Item Value Reference Range Interpretation Comments Segs-Bands # (test code = Segs-Bands #) 9.3 1.5-8.1 [facility] HospitalNwlpvvzYPRETSORTI1810-00-10 06:44:00 Test Item Value Reference Range Interpretation Comments Lymphocytes # (test code = Lymphocytes 2.6 1.0-5.5 #) [facility] HospitalHovkohuQQSIDJWVDQ1521-56-07 06:44:00 Test Item Value Reference Range Interpretation Comments Basophils # (test code 0.0 See_Comment [Aut omated message] The = Basophils #) system which generated this result tra nsmitted reference range : <=0.2. The reference r ozzy was not used to int erpret this result as normal/abnormal . [facility] HospitalGzgvbjyOLOOXVWVHC5351-65-56 06:44:00 Test Item Value Reference Range Interpretation Comments Microcyte (test code = 1+ *ABN*(02/13/16 1:44 Microcyte) AM) [facility] HospitalSzfhdyoJTUKQONYWY7216-21-80 06:44:00 Test Item Value Reference Range Interpretation Comments Giant Plt (test code Moderate *ABN*(02/13/16 = Giant Plt) 1:44 AM) [facility] HospitalMstoyjuAUSDWYODOA0614-53-13 06:44:00 Test Item Value Reference Range Interpretation Comments Segs (test code = Segs) 75.2 45.0-75.0 [facility] HospitalKhbwxmmXUYRVEYPCY3194-47-48 06:44:00 Test Item Value Reference Range Interpretation Comments Hypochrom (test code = 1+ (02/13/16 1:44 AM) Hypochrom) [facility] HospitalDrunlpsXUHOUJUOPD2457-00-92 06:44:00 Test Item Value Reference Range Interpretation Comments Eosinophils (test code = 0.7 See_Comment [A utomated message] The Eosinophils) system which ge nerated this result tra nsmitted reference range : <=4.0. The reference r ozzy was not used to int erpret this result as normal/abnormal . [facility] HospitalFoufwbjVQSRJOWIUU5820-35-29 06:44:00 Test Item Value Reference Range Interpretation Comments Lymphocytes (test code = Lymphocytes) 21.3 20.0-40.0 [facility] HospitalYriwgimPMJORDRZNF7649-62-27 06:44:00 Test Item Value Reference Range Interpretation Comments Monocytes (test code = Monocytes) 2.7 2.0-12.0 [facility] HospitalQxfljgpKGWUWLDWCE1556-09-49 06:44:00 Test Item Value Reference Range Interpretation Comments MPV (test code = MPV) 9.5 7.4-10.4 [facility] HospitalMwpduhxDOCJEGCWZV1585-58-92 06:44:00 Test Item Value Reference Range Interpretation Comments RDW (test code = RDW) 17.8 11.5-14.5 [facility] HospitalBdldaguBWJYROLNYW0084-39-57 06:44:00 Test Item Value Reference Range Interpretation Comments MCV (test code = MCV) 73.2 80.0-98.0 [facility] HospitalQuzkhlkKELPXCBWJA4828-74-36 06:44:00 Test Item Value Reference Range Interpretation Comments MCH (test code = MCH) 21.9 pg 27.0-31.0 [facility] HospitalQgcjhdePEASESFBQD1730-50-99 06:44:00 Test Item Value Reference Range Interpretation Comments Hct (test code = Hct) 27.2 36.0-48.0 [facility] HospitalSkuzhrvFCWZQKRRWT3229-88-55 06:44:00 Test Item Value Reference Range Interpretation Comments MCHC (test code = MCHC) 29.9 32.0-36.0 [facility] HospitalIwrdercFMBPLFYTSG3959-75-94 06:44:00 Test Item Value Reference Range Interpretation Comments Platelet (test code = Platelet) 400 133-450 [facility] HospitalOuvhkvvMEFBMHKKVH9520-04-50 06:44:00 Test Item Value Reference Range Interpretation Comments WBC (test code = WBC) 12.4 3.7-10.4 [facility] HospitalYbsmnfgEZCUPCCORX8152-80-19 06:44:00 Test Item Value Reference Range Interpretation Comments RBC (test code = RBC) 3.72 4.20-5.40 [facility] DallasHjifedwOEJEASGLFT5899-48-01 06:44:00 Test Item Value Reference Range Interpretation Comments Hgb (test code = Hgb) 8.1 12.0-16.0 [facility] HospitalBxjxcthVXFRJGORBZ7151-01-38 06:44:00 Test Item Value Reference Range Interpretation Comments PTT (test code = PTT) 27.2 s 22.9-35.8 [facility] DallasFcemkxuVNYMZGIYQY9059-00-59 06:44:00 Test Item Value Reference Range Interpretation Comments PT (test code = PT) 14.7 s 12.0-14.7 [facility] DallasKkpzaudWXJNLFYXBN0971-53-71 06:44:00 Test Item Value Reference Range Interpretation Comments INR (test code = INR) 1.12 0.85-1.17 [facility] [employer] CJSQWFV5551-51-23 06:44:00 Test Item Value Reference Range Interpretation Comments Antibody Scrn (test Negative (02/13/16 1:44 code = Antibody Scrn) AM) [facility] QJKBUOO0941-80-01 06:44:00 Test Item Value Reference Range Interpretation Comments ABO/Rh (test code = ABO/Rh) A POS [facility] [employer] RTFEYTN5583-14-40 06:44:00 Test Item Value Reference Range Interpretation Comments CK MB Index (test 1.6 See_Comment [Automate d message] The code = CK MB Index) system w [facility] generated this result transmit gaye reference range : <=2.5. The reference range was not used to interpr et this result as satish l/abnormal. [employer] VSTCVFR1662-85-90 06:44:00 Test Item Value Reference Range Interpretation Comments CK MB (test code = CK MB) 0.9 0.5-3.6 [facility] MNKCJFI5359-89-54 06:44:00 Test Item Value Reference Range Interpretation Comments Total CK (test code = Total CK) 57 12-191 [facility] [employer] OQKGHWQ9183-32-75 06:44:00 Test Item Value Reference Range Interpretation Comments Troponin-I (test code no gt See_Comment [Auto mated message] The = Troponin-I) system which g enerated this result transmit gaye reference range : <=0.40. The reference r ozzy was not used to interpr et this result as satish l/abnormal. AGELON ? [id number] 06:44:00 Test Item Value Reference Range Interpretation Comments Albumin Lvl (test code = Albumin Lvl) 3.5 3.5-5.0 [facility] [id number] 06:44:00 Test Item Value Reference Range Interpretation Comments Total Protein (test code = Total 7.0 6.4-8.4 Protein) [facility] [id number] 06:44:00 Test Item Value Reference Range Interpretation Comments ALT (test code = ALT) 19 See_Comment [Auto mated message] The system which ge nerated this result transmit gaye reference range : <=65. The reference range was not used to interpr et this result as satish l/abnormal. AGEL[facility] ? [id number] 06:44:00 Test Item Value Reference Range Interpretation Comments AST (test code = AST) 10 See_Comment [Auto mated message] The system which ge nerated this result transmit gaye reference range : <=37. The reference range was not used to interpr et this result as satish l/abnormal. [place] 580146-07-03 06:44:00 Test Item Value Reference Range Interpretation Comments Alk Phos (test code = Alk Phos) 79 39-136 [facility]2016-07-03 06:44:00 Test Item Value Reference Range Interpretation Comments Bili Total (test code = Bili Total) 0.4 0.2-1.3 [place] 580146-07-03 06:44:00 Test Item Value Reference Range Interpretation Comments Bili Direct (test code 0.1 See_Comment [Aut omated message] The = Bili Direct) system which generated this result tra nsmitted reference range : <=0.3. The reference r ozzy was not used to int erpret this result as satish l/abnormal. [place] 580146-07-03 06:44:00 Test Item Value Reference Range Interpretation Comments Globulin (test code = Globulin) 3.5 2.0-4.0 [place] 580146-07-03 06:44:00 Test Item Value Reference Range Interpretation Comments A/G Ratio (test code = A/G Ratio) 1.0 0.7-1.6 [place] 580146-07-03 06:44:00 Test Item Value Reference Range Interpretation [...] BUN (test code = BUN) 8 7-22 [place] 580146-07-03 06:44:00 Test Item Value Reference Range Interpretation Comments Glucose Lvl (test code = Glucose Lvl) 91 70-99 [facility]2016-07-03 06:44:00 Test Item Value Reference Range Interpretation Comments Sodium Lvl (test code = Sodium Lvl) 138 135-145 [place] 580146-07-03 06:44:00 Test Item Value Reference Range Interpretation [...] (test code = Magnesium 2.2 1.8-2.4 Lvl) [facility]NedxjubLOTJENPLRJBTK7020-90-13 06:44:00 Test Item Value Reference Range Interpretation Comments S Preg (test code = S Negative *NA*(02/13/16 Preg) 1:44 AM) [facility] HospitalImcgnggTKCFZZUKYJ8778-13-68 06:44:00 Test Item Value Reference Range Interpretation Comments Basophils (test code = 0.1 See_Comment [Aut omated message] The Basophils) system which ge nerated this result tra nsmitted reference range : <=1.0. The reference r ozzy was not used to int erpret this result as normal/abnormal . [facility] HospitalVrdbvucUBRGPQITIF5727-37-50 06:44:00 Test Item Value Reference Range Interpretation Comments Monocytes # (test code 0.3 See_Comment [Aut omated message] The = Monocytes #) system which generated this result tra nsmitted reference range : <=0.8. The reference r ozzy was not used to int erpret this result as normal/abnormal . [place] 848966-07-03 06:44:00 Test Item Value Reference Range Interpretation Comments Eosinophils # (test code 0.1 See_Comment [A utomated message] The = Eosinophils #) system whic h generated this result tra nsmitted reference range : <=0.5. The reference r ozzy was not used to int erpret this result as normal/abnormal . [facility] HospitalGvgpxbcPHGGVBCANU9169-96-60 06:44:00 Test Item Value Reference Range Interpretation Comments Segs-Bands # (test code = Segs-Bands #) 9.3 1.5-8.1 [facility] HospitalNnvjjhpFGYLPYPWFY9038-49-05 06:44:00 Test Item Value Reference Range Interpretation Comments Lymphocytes # (test code = Lymphocytes 2.6 1.0-5.5 #) [facility] HospitalSxqzalnFEJPCKHVYY6596-23-57 06:44:00 Test Item Value Reference Range Interpretation Comments Basophils # (test code 0.0 See_Comment [Aut omated message] The = Basophils #) system which generated this result tra nsmitted reference range : <=0.2. The reference r ozzy was not used to int erpret this result as normal/abnormal . [facility] HospitalFjyatxkMHAVLVOBYK5789-08-74 06:44:00 Test Item Value Reference Range Interpretation Comments Microcyte (test code = 1+ *ABN*(02/13/16 1:44 Microcyte) AM) [facility] HospitalOgwitezSLDIXDCBTH2396-96-05 06:44:00 Test Item Value Reference Range Interpretation Comments Giant Plt (test code Moderate *ABN*(02/13/16 = Giant Plt) 1:44 AM) [facility] HospitalPjbdtiwNBIKJWKKCD1032-47-61 06:44:00 Test Item Value Reference Range Interpretation Comments Segs (test code = Segs) 75.2 45.0-75.0 [facility] HospitalTcemmbdUDBVDPMJBT4455-35-75 06:44:00 Test Item Value Reference Range Interpretation Comments Hypochrom (test code = 1+ (02/13/16 1:44 AM) Hypochrom) [facility] HospitalIjhxvstSKNDAICKBV4225-25-74 06:44:00 Test Item Value Reference Range Interpretation Comments Eosinophils (test code = 0.7 See_Comment [A utomated message] The Eosinophils) system which ge nerated this result tra nsmitted reference range : <=4.0. The reference r ozzy was not used to int erpret this result as normal/abnormal . [facility] HospitalCmducitSVULTGKGYT5628-18-29 06:44:00 Test Item Value Reference Range Interpretation Comments Lymphocytes (test code = Lymphocytes) 21.3 20.0-40.0 [facility] HospitalVmzjrldRVKJMIHMUG0833-82-53 06:44:00 Test Item Value Reference Range Interpretation Comments Monocytes (test code = Monocytes) 2.7 2.0-12.0 [facility] HospitalFhfhvvvUCYEYTGJYJ7967-17-42 06:44:00 Test Item Value Reference Range Interpretation Comments MPV (test code = MPV) 9.5 7.4-10.4 [facility] HospitalIkdwjpqWOCZSPGBEZ6172-55-58 06:44:00 Test Item Value Reference Range Interpretation Comments RDW (test code = RDW) 17.8 11.5-14.5 [facility] HospitalUvvpcupBJHLCCFVWO1389-69-77 06:44:00 Test Item Value Reference Range Interpretation Comments MCV (test code = MCV) 73.2 80.0-98.0 [facility] HospitalSlcuslrAHLLWTSAHD8495-09-50 06:44:00 Test Item Value Reference Range Interpretation Comments MCH (test code = MCH) 21.9 pg 27.0-31.0 [facility] HospitalYsctmchWPESQSYUGE0082-19-50 06:44:00 Test Item Value Reference Range Interpretation Comments Hct (test code = Hct) 27.2 36.0-48.0 [facility] HospitalUrjicieZCOLPWUQJF3237-17-32 06:44:00 Test Item Value Reference Range Interpretation Comments MCHC (test code = MCHC) 29.9 32.0-36.0 [facility] [facility]FsrwhowKEWRWHFAMO8833-73-40 06:44:00 Test Item Value Reference Range Interpretation Comments Platelet (test code = Platelet) 400 133-450 [facility] HospitalAtxrkgyDAWFDOHNOL4195-15-01 06:44:00 Test Item Value Reference Range Interpretation Comments WBC (test code = WBC) 12.4 3.7-10.4 [facility] HospitalWweilmbBZMRJVRXXW0678-87-87 06:44:00 Test Item Value Reference Range Interpretation Comments RBC (test code = RBC) 3.72 4.20-5.40 [facility] HospitalHpamedtQRGQKSEPJK0990-73-38 06:44:00 Test Item Value Reference Range Interpretation Comments Hgb (test code = Hgb) 8.1 12.0-16.0 [facility]hlxzcpKANKNXOFSJ3918-56-35 06:44:00 Test Item Value Reference Range Interpretation Comments PTT (test code = PTT) 27.2 s 22.9-35.8 [facility] FrzvnmbUKPJNIMYGU3644-71-83 06:44:00 Test Item Value Reference Range Interpretation Comments PT (test code = PT) 14.7 s 12.0-14.7 [facility] DbepcqyATIFTWGWWF9557-53-45 06:44:00 Test Item Value Reference Range Interpretation Comments INR (test code = INR) 1.12 0.85-1.17 [employer] [id number] 06:44:00 Test Item Value Reference Range Interpretation Comments Antibody Scrn (test Negative (02/13/16 1:44 code = Antibody Scrn) AM) [employer] [id number] 06:44:00 Test Item Value Reference Range Interpretation Comments ABO/Rh (test code = ABO/Rh) A POS [facility]2016-07-03 06:44:00 Test Item Value Reference Range Interpretation Comments CK MB Index (test 1.6 See_Comment [Automate d message] The code = CK MB Index) system w [facility] generated this result transmit gaye reference range : <=2.5. The reference range was not used to interpr et this result as satish l/abnormal. [facility]2016-07-03 06:44:00 Test Item Value Reference Range Interpretation Comments CK MB (test code = CK MB) 0.9 0.5-3.6 [facility]2016-07-03 06:44:00 Test Item Value Reference Range Interpretation Comments Total CK (test code = Total CK) 57 12-191 [facility]2016-07-03 06:44:00 Test Item Value Reference Range Interpretation Comments Troponin-I (test code no gt See_Comment [Auto mated message] The = Troponin-I) system which g enerated this result transmit gaye reference range : <=0.40. The reference r ozzy was not used to interpr et this result as satish l/abnormal. AGELON ? [id number] 06:44:00 Test Item Value Reference Range Interpretation Comments Albumin Lvl (test code = Albumin Lvl) 3.5 3.5-5.0 [place] 580146-07-03 06:44:00 Test Item Value Reference Range Interpretation [...] interpr et this result as satish l/abnormal. [place] 580146-07-03 06:44:00 Test Item Value Reference Range Interpretation Comments AST (test code = AST) 10 See_Comment [Auto mated message] The system which ge nerated this result transmit gaye reference range : <=37. The reference range was not used to interpr et this result as satish l/abnormal. [place] 580146-07-03 06:44:00 Test Item Value Reference Range Interpretation Comments Alk Phos (test code = Alk Phos) 79 39-136 [facility]2016-07-03 06:44:00 Test Item Value Reference Range Interpretation Comments Bili Total (test code = Bili Total) 0.4 0.2-1.3 [place] 580146-07-03 06:44:00 Test Item Value Reference Range Interpretation [...] Globulin (test code = Globulin) 3.5 2.0-4.0 [place] 580146-07-03 06:44:00 Test Item Value Reference Range Interpretation Comments A/G Ratio (test code = A/G Ratio) 1.0 0.7-1.6 [place] 580146-07-03 06:44:00 Test Item Value Reference Range Interpretation [...] (test code = Magnesium 2.2 1.8-2.4 Lvl) [facility]TbcjnkrMXCLGERDXZSCJ4920-76-31 06:44:00 Test Item Value Reference Range Interpretation Comments S Preg (test code = S Negative *NA*(02/13/16 Preg) 1:44 AM) [facility] HospitalSpvkljtLHOJJGEJBQ8312-59-94 06:44:00 Test Item Value Reference Range Interpretation Comments Basophils (test code = 0.1 See_Comment [Aut omated message] The Basophils) system which ge nerated this result tra nsmitted reference range : <=1.0. The reference r ozzy was not used to int erpret this result as normal/abnormal . [facility] HospitalUtmzhcuYPUNVBQZZT8799-70-58 06:44:00 Test Item Value Reference Range Interpretation Comments Monocytes # (test code 0.3 See_Comment [Aut omated message] The = Monocytes #) system which generated this result tra nsmitted reference range : <=0.8. The reference r ozzy was not used to int erpret this result as normal/abnormal . [facility] HospitalUrivpxmXKOHWCGPPL7770-57-71 06:44:00 Test Item Value Reference Range Interpretation Comments Eosinophils # (test code 0.1 See_Comment [A utomated message] The = Eosinophils #) system whic h generated this result tra nsmitted reference range : <=0.5. The reference r ozzy was not used to int erpret this result as normal/abnormal . [facility] HospitalOlxhzovSDFWYXIJEG3933-85-37 06:44:00 Test Item Value Reference Range Interpretation Comments Segs-Bands # (test code = Segs-Bands #) 9.3 1.5-8.1 [facility] HospitalTtoprfuHXQAJGKSGK4488-19-38 06:44:00 Test Item Value Reference Range Interpretation Comments Lymphocytes # (test code = Lymphocytes 2.6 1.0-5.5 #) [facility] HospitalRawixipUIKIXVJZYY4077-02-15 06:44:00 Test Item Value Reference Range Interpretation Comments Basophils # (test code 0.0 See_Comment [Aut omated message] The = Basophils #) system which generated this result tra nsmitted reference range : <=0.2. The reference r ozzy was not used to int erpret this result as normal/abnormal . [facility] HospitalAshyracCPASWKSYQT6262-62-22 06:44:00 Test Item Value Reference Range Interpretation Comments Microcyte (test code = 1+ *ABN*(02/13/16 1:44 Microcyte) AM) [facility] HospitalGpfbuifQEZOMGOLDM7234-22-70 06:44:00 Test Item Value Reference Range Interpretation Comments Giant Plt (test code Moderate *ABN*(02/13/16 = Giant Plt) 1:44 AM) [facility] HospitalRgrlqsmWKNNVVTVLQ9512-71-81 06:44:00 Test Item Value Reference Range Interpretation Comments Segs (test code = Segs) 75.2 45.0-75.0 [facility] HospitalQjazcllEUHDBMTZDD5307-99-09 06:44:00 Test Item Value Reference Range Interpretation Comments Hypochrom (test code = 1+ (02/13/16 1:44 AM) Hypochrom) [facility] HospitalFrwrlzgPSZFUOKJDJ2083-51-73 06:44:00 Test Item Value Reference Range Interpretation Comments Eosinophils (test code = 0.7 See_Comment [A utomated message] The Eosinophils) system which ge nerated this result tra nsmitted reference range : <=4.0. The reference r ozzy was not used to int erpret this result as normal/abnormal . [facility] HospitalFyttnmiVYVLQEVRQP7009-71-18 06:44:00 Test Item Value Reference Range Interpretation Comments Lymphocytes (test code = Lymphocytes) 21.3 20.0-40.0 [facility] HospitalOwjaaqjHESOZMEDYX4103-76-10 06:44:00 Test Item Value Reference Range Interpretation Comments Monocytes (test code = Monocytes) 2.7 2.0-12.0 [facility] HospitalTkfsqciIFCIXGWACG2330-53-03 06:44:00 Test Item Value Reference Range Interpretation Comments MPV (test code = MPV) 9.5 7.4-10.4 [facility] HospitalEpsirkfPPUUXDVBBZ9073-02-48 06:44:00 Test Item Value Reference Range Interpretation Comments RDW (test code = RDW) 17.8 11.5-14.5 [facility] HospitalQdyhojjYEMBJVCUZJ8172-43-69 06:44:00 Test Item Value Reference Range Interpretation Comments MCV (test code = MCV) 73.2 80.0-98.0 [facility] HospitalYpehikvTBUZTGXVTX7845-80-24 06:44:00 Test Item Value Reference Range Interpretation Comments MCH (test code = MCH) 21.9 pg 27.0-31.0 [facility] HospitalKroewieVKAGVHTZMN5795-59-48 06:44:00 Test Item Value Reference Range Interpretation Comments Hct (test code = Hct) 27.2 36.0-48.0 [facility] HospitalDjlkglfFXZNGZNULQ3247-59-64 06:44:00 Test Item Value Reference Range Interpretation Comments MCHC (test code = MCHC) 29.9 32.0-36.0 [facility] WzmrbsoQCHIGQETJZ3493-69-80 06:44:00 Test Item Value Reference Range Interpretation Comments Platelet (test code = Platelet) 400 133-450 [facility] SurgeryDtrkhjbBRRTERVYIG8668-30-63 06:44:00 Test Item Value Reference Range Interpretation Comments WBC (test code = WBC) 12.4 3.7-10.4 [facility] HospitalBtvxmtdSFCYSZFJDH4826-73-36 06:44:00 Test Item Value Reference Range Interpretation Comments RBC (test code = RBC) 3.72 4.20-5.40 [facility] HospitalNcdnuegPNWSSSQZZG6766-65-48 06:44:00 Test Item Value Reference Range Interpretation Comments Hgb (test code = Hgb) 8.1 12.0-16.0 [facility] HospitalMyzgpnhMVTABLVAIH8784-57-53 06:44:00 Test Item Value Reference Range Interpretation Comments PTT (test code = PTT) 27.2 s 22.9-35.8 [facility] HospitalIhjmbraOVKTIBTZZZ5149-24-91 06:44:00 Test Item Value Reference Range Interpretation Comments PT (test code = PT) 14.7 s 12.0-14.7 [facility] HospitalCwtqgfaVMHQWSMHXA3685-39-41 06:44:00 Test Item Value Reference Range Interpretation Comments INR (test code = INR) 1.12 0.85-1.17 [facility] [employer] TSCIVPR7495-80-92 06:44:00 Test Item Value Reference Range Interpretation Comments Antibody Scrn (test Negative (02/13/16 1:44 code = Antibody Scrn) AM) [facility] [employer] [id number] 06:44:00 Test Item Value Reference Range Interpretation Comments ABO/Rh (test code = ABO/Rh) A POS [facility] [facility]2016-07-03 06:44:00 Test Item Value Reference Range Interpretation Comments CK MB Index (test 1.6 See_Comment [Automate d message] The code = CK MB Index) system w [facility] generated this result transmit gaye reference range : <=2.5. The reference range was not used to interpr et this result as satish l/abnormal. My[facility]2016-07-03 06:44:00 Test Item Value Reference Range Interpretation Comments CK MB (test code = CK MB) 0.9 0.5-3.6 [facility] HospitalCircleUp HSHZELD0026-21-86 06:44:00 Test Item Value Reference Range Interpretation Comments Total CK (test code = Total CK) 57 12-191 [facility] UADQBDP5578-76-90 06:44:00 Test Item Value Reference Range Interpretation Comments Troponin-I (test code no gt See_Comment [Auto mated message] The = Troponin-I) system which g enerated this result transmit gaye reference range : <=0.40. The reference r ozzy was not used to interpr et this result as satish l/abnormal. [facility] [employer]2016-07-03 06:44:00 Test Item Value Reference Range Interpretation Comments Albumin Lvl (test code = Albumin Lvl) 3.5 3.5-5.0 [facility] VIVA NIHVY3572-82-14 06:44:00 Test Item Value Reference Range Interpretation Comments Total Protein (test code = Total 7.0 6.4-8.4 Protein) [facility] JPEZM3628-92-33 06:44:00 Test Item Value Reference Range Interpretation Comments ALT (test code = ALT) 19 See_Comment [Auto mated message] The system which ge nerated this result transmit gaye reference range : <=65. The reference range was not used to interpr et this result as satish l/abnormal. [facility] [employer]2016-07-03 06:44:00 Test Item Value Reference Range Interpretation Comments AST (test code = AST) 10 See_Comment [Auto mated message] The system which ge nerated this result transmit gaye reference range : <=37. The reference range was not used to interpr et this result as satish l/abnormal. [facility] KJKNR4412-73-51 06:44:00 Test Item Value Reference Range Interpretation Comments Alk Phos (test code = Alk Phos) 79 39-136 [facility] VIVA PDZFQ0814-43-74 06:44:00 Test Item Value Reference Range Interpretation Comments Bili Total (test code = Bili Total) 0.4 0.2-1.3 [facility] [employer]2016-07-03 06:44:00 Test Item Value Reference Range Interpretation [...] Comments eGFR (test code = eGFR) 107 [place] 580146-07-03 06:44:00 Test Item Value Reference Range Interpretation [...] (test code = Magnesium 2.2 1.8-2.4 Lvl) [facility]ShrxzsoSBTADPBBLWLPY9811-63-65 06:44:00 Test Item Value Reference Range Interpretation Comments S Preg (test code = S Negative *NA*(02/13/16 Preg) 1:44 AM) [facility] HospitalOcvmzdxQSPCLLPQHR4468-91-08 06:44:00 Test Item Value Reference Range Interpretation Comments Basophils (test code = 0.1 See_Comment [Aut omated message] The Basophils) system which ge nerated this result tra nsmitted reference range : <=1.0. The reference r ozzy was not used to int erpret this result as normal/abnormal . [facility] HospitalHbgtinuMLRZUHAPHV0380-38-49 06:44:00 Test Item Value Reference Range Interpretation Comments Monocytes # (test code 0.3 See_Comment [Aut omated message] The = Monocytes #) system which generated this result tra nsmitted reference range : <=0.8. The reference r ozzy was not used to int erpret this result as normal/abnormal . [facility] HospitalAzxrgsmHOXAKZFXER8009-09-15 06:44:00 Test Item Value Reference Range Interpretation Comments Eosinophils # (test code 0.1 See_Comment [A utomated message] The = Eosinophils #) system whic h generated this result tra nsmitted reference range : <=0.5. The reference r ozzy was not used to int erpret this result as normal/abnormal . [facility] HospitalNmuvsqxUEHJBDFLUQ3023-99-48 06:44:00 Test Item Value Reference Range Interpretation Comments Segs-Bands # (test code = Segs-Bands #) 9.3 1.5-8.1 [facility] HospitalWvlpzbeZLIRLXMKCT7330-17-84 06:44:00 Test Item Value Reference Range Interpretation Comments Lymphocytes # (test code = Lymphocytes 2.6 1.0-5.5 #) [facility] HospitalRjfbkmnBUWPMACYPD4417-36-37 06:44:00 Test Item Value Reference Range Interpretation Comments Basophils # (test code 0.0 See_Comment [Aut omated message] The = Basophils #) system which generated this result tra nsmitted reference range : <=0.2. The reference r ozzy was not used to int erpret this result as normal/abnormal . [facility] HospitalFgqtwiuBJIUFYZUTJ8686-10-23 06:44:00 Test Item Value Reference Range Interpretation Comments Microcyte (test code = 1+ *ABN*(02/13/16 1:44 Microcyte) AM) [facility] HospitalXimdhcvHDORPXRCNU8267-28-21 06:44:00 Test Item Value Reference Range Interpretation Comments Giant Plt (test code Moderate *ABN*(02/13/16 = Giant Plt) 1:44 AM) [facility] HospitalDrzefhpKNFFCZHTIJ8158-06-84 06:44:00 Test Item Value Reference Range Interpretation Comments Segs (test code = Segs) 75.2 45.0-75.0 [facility] HospitalFmeopjzRJYTEGIINK1377-24-01 06:44:00 Test Item Value Reference Range Interpretation Comments Hypochrom (test code = 1+ (02/13/16 1:44 AM) Hypochrom) [facility] HospitalTcidmpmPAGVXCFXHU4841-79-52 06:44:00 Test Item Value Reference Range Interpretation Comments Eosinophils (test code = 0.7 See_Comment [A utomated message] The Eosinophils) system which ge nerated this result tra nsmitted reference range : <=4.0. The reference r ozzy was not used to int erpret this result as normal/abnormal . [facility] HospitalJcytaazZOHVKJZLMP9174-73-23 06:44:00 Test Item Value Reference Range Interpretation Comments Lymphocytes (test code = Lymphocytes) 21.3 20.0-40.0 [facility] HospitalYmmstnaPTHVVIQGCI2570-99-11 06:44:00 Test Item Value Reference Range Interpretation Comments Monocytes (test code = Monocytes) 2.7 2.0-12.0 [facility] HospitalBcqgifrVQQPCDEVFG8730-23-91 06:44:00 Test Item Value Reference Range Interpretation Comments MPV (test code = MPV) 9.5 7.4-10.4 [facility] HospitalExpgledUNAVAXPLST4390-26-60 06:44:00 Test Item Value Reference Range Interpretation Comments RDW (test code = RDW) 17.8 11.5-14.5 [facility] HospitalTpgpleqGQMJTRMAOT3592-01-26 06:44:00 Test Item Value Reference Range Interpretation Comments MCV (test code = MCV) 73.2 80.0-98.0 [facility] HospitalNryqsfqQQXYTIDXSS4527-91-18 06:44:00 Test Item Value Reference Range Interpretation Comments MCH (test code = MCH) 21.9 pg 27.0-31.0 [facility] HospitalYqcjzoxUQKEKDVHDB4397-53-72 06:44:00 Test Item Value Reference Range Interpretation Comments Hct (test code = Hct) 27.2 36.0-48.0 [facility] HospitalUcqceqfGEJQQYUKBF0584-89-91 06:44:00 Test Item Value Reference Range Interpretation Comments MCHC (test code = MCHC) 29.9 32.0-36.0 [facility] HospitalBahzmkrICGTLSFHPG8310-34-56 06:44:00 Test Item Value Reference Range Interpretation Comments Platelet (test code = Platelet) 400 133-450 [facility] HospitalVazdrxmTFYLUXXUAY6071-25-74 06:44:00 Test Item Value Reference Range Interpretation Comments WBC (test code = WBC) 12.4 3.7-10.4 [facility] HospitalZnszkueUYSNMNOVUM6460-61-38 06:44:00 Test Item Value Reference Range Interpretation Comments RBC (test code = RBC) 3.72 4.20-5.40 [facility] HospitalQhjajogNLESUASSRR1710-65-16 06:44:00 Test Item Value Reference Range Interpretation Comments Hgb (test code = Hgb) 8.1 12.0-16.0 [facility] HospitalKrxpzbuGLIPTXUGNK3343-23-47 06:44:00 Test Item Value Reference Range Interpretation Comments PTT (test code = PTT) 27.2 s 22.9-35.8 [facility] HospitalRzxvkuzWGMJKWEWTF1318-87-06 06:44:00 Test Item Value Reference Range Interpretation Comments PT (test code = PT) 14.7 s 12.0-14.7 [facility] HospitalJlwiqyvUAGZURUPIU8136-36-98 06:44:00 Test Item Value Reference Range Interpretation Comments INR (test code = INR) 1.12 0.85-1.17 [facility] HospitalUqgqnunXVOKYLYBQL5063-20-00 06:44:00 Test Item Value Reference Range Interpretation Comments Eosinophils # (test code 0.1 See_Comment [A utomated message] The = Eosinophils #) system whic h generated this result tra nsmitted reference range : <=0.5. The reference r ozzy was not used to int erpret this result as normal/abnormal . [facility] HospitalDvupaotTOJPWHTJHV3531-01-83 06:44:00 Test Item Value Reference Range Interpretation Comments Segs-Bands # (test code = Segs-Bands #) 9.3 1.5-8.1 [facility] HospitalEifksbjHIISTBQFMY7806-92-66 06:44:00 Test Item Value Reference Range Interpretation Comments Lymphocytes # (test code = Lymphocytes 2.6 1.0-5.5 #) [facility] HospitalHqachnlNUQQRFXMDE9973-51-20 06:44:00 Test Item Value Reference Range Interpretation Comments Basophils # (test code 0.0 See_Comment [Aut omated message] The = Basophils #) system which generated this result tra nsmitted reference range : <=0.2. The reference r ozzy was not used to int erpret this result as normal/abnormal . [facility] HospitalTmlgcduEPLGEJYJTP4825-24-54 06:44:00 Test Item Value Reference Range Interpretation Comments Microcyte (test code = 1+ *ABN*(02/13/16 1:44 Microcyte) AM) [facility] HospitalFfmamwnEWGSUDMOEP1360-90-14 06:44:00 Test Item Value Reference Range Interpretation Comments Giant Plt (test code Moderate *ABN*(02/13/16 = Giant Plt) 1:44 AM) [facility] HospitalOisguttBZQKGTKTSU3468-88-49 06:44:00 Test Item Value Reference Range Interpretation Comments Segs (test code = Segs) 75.2 45.0-75.0 [facility] HospitalOynvfjuBDYYPRNRFF2286-35-60 06:44:00 Test Item Value Reference Range Interpretation Comments Hypochrom (test code = 1+ (02/13/16 1:44 AM) Hypochrom) [facility] HospitalXhnrfylYPTWUVEKOH8947-81-84 06:44:00 Test Item Value Reference Range Interpretation Comments Eosinophils (test code = 0.7 See_Comment [A utomated message] The Eosinophils) system which ge nerated this result tra nsmitted reference range : <=4.0. The reference r ozzy was not used to int erpret this result as normal/abnormal . [facility] HospitalJtwsxciNUWBGJINVL1628-71-27 06:44:00 Test Item Value Reference Range Interpretation Comments Lymphocytes (test code = Lymphocytes) 21.3 20.0-40.0 [facility] HospitalPrhrhoyITDCBDZOJU9237-54-05 06:44:00 Test Item Value Reference Range Interpretation Comments Monocytes (test code = Monocytes) 2.7 2.0-12.0 [facility] HospitalKzzhtpsEJFBBVMQHH0711-61-87 06:44:00 Test Item Value Reference Range Interpretation Comments MPV (test code = MPV) 9.5 7.4-10.4 [facility] HospitalAmedksdSALRMYBNVY4139-22-72 06:44:00 Test Item Value Reference Range Interpretation Comments RDW (test code = RDW) 17.8 11.5-14.5 [facility] HospitalPxudwlgPBVDOOSASF0884-80-85 06:44:00 Test Item Value Reference Range Interpretation Comments MCV (test code = MCV) 73.2 80.0-98.0 [facility] HospitalNzlfswbENXZTQSIYC4516-90-55 06:44:00 Test Item Value Reference Range Interpretation Comments MCH (test code = MCH) 21.9 pg 27.0-31.0 [facility] HospitalZnxtljaTDUPKCHZPZ2256-38-89 06:44:00 Test Item Value Reference Range Interpretation Comments Hct (test code = Hct) 27.2 36.0-48.0 [facility] HospitalFwhkjhxSEJFEFHYRB7683-96-85 06:44:00 Test Item Value Reference Range Interpretation Comments MCHC (test code = MCHC) 29.9 32.0-36.0 [facility] HospitalCwifjiwGXAONCMJUI6894-09-58 06:44:00 Test Item Value Reference Range Interpretation Comments Platelet (test code = Platelet) 400 133-450 [facility] HospitalFxcetkoPAZQSHJXKQ1555-92-36 06:44:00 Test Item Value Reference Range Interpretation Comments WBC (test code = WBC) 12.4 3.7-10.4 [facility] HospitalIuqtakgRVKNBMWXWM7653-95-97 06:44:00 Test Item Value Reference Range Interpretation Comments RBC (test code = RBC) 3.72 4.20-5.40 [facility] HospitalJcrpxopGKXBHYVCLN1321-51-02 06:44:00 Test Item Value Reference Range Interpretation Comments Hgb (test code = Hgb) 8.1 12.0-16.0 [facility] HospitalFponmajZYLUZWGQPF9977-68-38 06:44:00 Test Item Value Reference Range Interpretation Comments PTT (test code = PTT) 27.2 s 22.9-35.8 [facility] JfrdgfeWFYCNKDYSY1570-77-94 06:44:00 Test Item Value Reference Range Interpretation Comments PT (test code = PT) 14.7 s 12.0-14.7 [facility] DyepthlJJIEAXKMBW2141-69-96 06:44:00 Test Item Value Reference Range Interpretation Comments INR (test code = INR) 1.12 0.85-1.17 [employer] PODTBFJ5538-54-94 06:44:00 Test Item Value Reference Range Interpretation Comments Antibody Scrn (test Negative (02/13/16 1:44 code = Antibody Scrn) AM) [employer] XGWTWTM8756-05-53 06:44:00 Test Item Value Reference Range Interpretation Comments ABO/Rh (test code = ABO/Rh) A POS [facility] [employer]2016-07-03 06:44:00 Test Item Value Reference Range Interpretation Comments CK MB Index (test 1.6 See_Comment [Automate d message] The code = CK MB Index) system w [facility] generated this result transmit gaye reference range : <=2.5. The reference range was not used to interpr et this result as satish l/abnormal. [facility]2016-07-03 06:44:00 Test Item Value Reference Range Interpretation Comments CK MB (test code = CK MB) 0.9 0.5-3.6 [facility] [employer] Medical2016-07-03 06:44:00 Test Item Value Reference Range Interpretation Comments Total CK (test code = Total CK) 57 12-191 [facility] [employer] [facility]2016-07-03 06:44:00 Test Item Value Reference Range Interpretation Comments Troponin-I (test code no gt See_Comment [Auto mated message] The = Troponin-I) system which g enerated this result transmit gaye reference range : <=0.40. The reference r ozzy was not used to interpr et this result as satish l/abnormal. [employer]2016-07-03 06:44:00 Test Item Value Reference Range Interpretation Comments Albumin Lvl (test code = Albumin Lvl) 3.5 3.5-5.0 [place] 580146-07-03 06:44:00 Test Item Value Reference Range Interpretation [...] interpr et this result as satish l/abnormal. [place] 580146-07-03 06:44:00 Test Item Value Reference Range Interpretation Comments AST (test code = AST) 10 See_Comment [Auto mated message] The system which ge nerated this result transmit gaye reference range : <=37. The reference range was not used to interpr et this result as satish l/abnormal. [place] 580146-07-03 06:44:00 Test Item Value Reference Range Interpretation Comments Alk Phos (test code = Alk Phos) 79 39-136 [facility]2016-07-03 06:44:00 Test Item Value Reference Range Interpretation Comments Bili Total (test code = Bili Total) 0.4 0.2-1.3 [place] 580146-07-03 06:44:00 Test Item Value Reference Range Interpretation [...] Globulin (test code = Globulin) 3.5 2.0-4.0 [place] 580146-07-03 06:44:00 Test Item Value Reference Range Interpretation Comments A/G Ratio (test code = A/G Ratio) 1.0 0.7-1.6 [place] 580146-07-03 06:44:00 Test Item Value Reference Range Interpretation [...] (test code = Magnesium 2.2 1.8-2.4 Lvl) [facility]OuzpowpMGURKICSLEKXG7686-39-96 06:44:00 Test Item Value Reference Range Interpretation Comments S Preg (test code = S Negative *NA*(02/13/16 Preg) 1:44 AM) [facility]MgcpvgvITLKGUUAFT4180-68-32 06:44:00 Test Item Value Reference Range Interpretation Comments Basophils (test code = 0.1 See_Comment [Aut omated message] The Basophils) system which ge nerated this result tra nsmitted reference range : <=1.0. The reference r ozzy was not used to int erpret this result as normal/abnormal . [facility] DallasKpdectkQLGOAZHGAA4753-17-46 06:44:00 Test Item Value Reference Range Interpretation Comments Monocytes # (test code 0.3 See_Comment [Aut omated message] The = Monocytes #) system which generated this result tra nsmitted reference range : <=0.8. The reference r ozzy was not used to int erpret this result as normal/abnormal . [facility] BSZDO4841-30-08 07:51:00 Test Item Value Reference Range Interpretation Comments Globulin (test code = Globulin) 3.9 2.0-4.0 [facility] [id number] 07:51:00 Test Item Value Reference Range Interpretation Comments A/G Ratio (test code = A/G Ratio) 0.9 0.7-1.6 [facility] CenterYaidarkBQKFXMKFYWQPG8020-69-31 07:51:00 Test Item Value Reference Range Interpretation Comments hCG Tot (test code = hCG Tot) no gt [facility] DallasYihprzvCDYVTNNKFG1796-17-66 07:51:00 Test Item Value Reference Range Interpretation Comments MCHC (test code = MCHC) 33.8 32.0-36.0 [facility] HospitalMarwkghQJMSKOXZLJ6417-97-77 07:51:00 Test Item Value Reference Range Interpretation Comments MCH (test code = MCH) 30.3 pg 27.0-31.0 [facility] HospitalCrwwkujXLLDDLYTNO1655-95-55 07:51:00 Test Item Value Reference Range Interpretation Comments RDW (test code = RDW) 13.0 11.5-14.5 [facility] DallasFapurodNYIBOHBRFF8182-26-76 07:51:00 Test Item Value Reference Range Interpretation Comments MPV (test code = MPV) 8.4 7.4-10.4 [facility] DallasHwoeotxWJWQBTLZUT7987-13-56 07:51:00 Test Item Value Reference Range Interpretation Comments Platelet (test code = Platelet) 356 133-450 [facility] HospitalZonrbqqRHEGARJISE2319-75-38 07:51:00 Test Item Value Reference Range Interpretation Comments RBC (test code = RBC) 4.45 4.20-5.40 [facility] HospitalNyfpvnpISEXYASDEV7380-59-63 07:51:00 Test Item Value Reference Range Interpretation Comments WBC (test code = WBC) 12.9 3.7-10.4 [facility] HospitalVotppfnZLGDDQPSBN8627-60-82 07:51:00 Test Item Value Reference Range Interpretation Comments Hgb (test code = Hgb) 13.5 12.0-16.0 [facility] HospitalDpchzrpGRAOHHNEIC4920-97-99 07:51:00 Test Item Value Reference Range Interpretation Comments MCV (test code = MCV) 89.7 80.0-98.0 [facility] HospitalBgayhxqUZXBBVKMGZ1563-20-44 07:51:00 Test Item Value Reference Range Interpretation Comments Hct (test code = Hct) 39.9 36.0-48.0 [facility] HospitalCplyneoUSSWQLDZFG5758-92-73 07:51:00 Test Item Value Reference Range Interpretation Comments Eosinophils # (test code 0.3 See_Comment [A utomated message] The = Eosinophils #) system ic h generated this result tra nsmitted reference range : <=0.5. The reference r ozzy was not used to int erpret this result as normal/abnormal . [facility] HospitalWftnfatRSTRNXDVVF8946-35-79 07:51:00 Test Item Value Reference Range Interpretation Comments Lymphocytes # (test code = Lymphocytes 3.6 1.0-5.5 #) [facility] HospitalXpauoisVCYGJHKBSR4164-63-79 07:51:00 Test Item Value Reference Range Interpretation Comments Monocytes # (test code 0.7 See_Comment [Aut omated message] The = Monocytes #) system which generated this result tra nsmitted reference range : <=0.8. The reference r ozzy was not used to int erpret this result as normal/abnormal . [facility] HospitalNcnlxkyCWFJRPIGPV2751-30-69 07:51:00 Test Item Value Reference Range Interpretation Comments Segs (test code = Segs) 63.9 45.0-75.0 [facility] HospitalYyecqufXNRWFLFEZV5956-08-50 07:51:00 Test Item Value Reference Range Interpretation Comments Segs-Bands # (test code = Segs-Bands #) 8.2 1.5-8.1 [facility] HospitalJawxtslNSKLAHNGUM9654-92-47 07:51:00 Test Item Value Reference Range Interpretation Comments Basophils (test code = 0.7 See_Comment [Aut omated message] The Basophils) system which ge nerated this result tra nsmitted reference range : <=1.0. The reference r ozzy was not used to int erpret this result as normal/abnormal . [facility] HospitalNgpottaVPEZEEDYSV5168-54-21 07:51:00 Test Item Value Reference Range Interpretation Comments Monocytes (test code = Monocytes) 5.4 2.0-12.0 [facility] HospitalWxpdhrgQZZSUPYROM0376-45-08 07:51:00 Test Item Value Reference Range Interpretation Comments Eosinophils (test code = 2.3 See_Comment [A utomated message] The Eosinophils) system which ge nerated this result tra nsmitted reference range : <=4.0. The reference r ozzy was not used to int erpret this result as normal/abnormal . [facility] HospitalNtoolapFOGBTSRVPL1524-24-05 07:51:00 Test Item Value Reference Range Interpretation Comments Lymphocytes (test code = Lymphocytes) 27.7 20.0-40.0 [facility] HospitalGmfyvreAREVXEKSGX6765-91-89 07:51:00 Test Item Value Reference Range Interpretation Comments Basophils # (test code 0.1 See_Comment [Aut omated message] The = Basophils #) system which generated this result tra nsmitted reference range : <=0.2. The reference r ozzy was not used to int erpret this result as normal/abnormal . [facility]2015-01-23 07:51:00 Test Item Value Reference Range Interpretation Comments UA Urobilinogen (test code = UA 1.0 0.1-1.0 Urobilinogen) [facility]2015-01-23 07:51:00 Test Item Value Reference Range Interpretation Comments UA Turbidity (test code Cloudy *ABN*(09/04/14 = UA Turbidity) 1:51 AM) [facility]2015-01-23 07:51:00 Test Item Value Reference Range Interpretation Comments UA Color (test code = Red *ABN*(09/04/14 1:51 UA Color) AM) [facility]2015-01-23 07:51:00 Test Item Value Reference Range Interpretation Comments UA Ketones (test code Negative *NA*(09/04/14 = UA Ketones) 1:51 AM) [facility] AND [id number] 07:51:00 Test Item Value Reference Range Interpretation Comments UA Glucose (test code Negative (09/04/14 1:51 = UA Glucose) AM) [facility] AND [id number] 07:51:00 Test Item Value Reference Range Interpretation Comments UA Protein (test code = Trace *ABN*(09/04/14 UA Protein) 1:51 AM) [facility] AND [id number] 07:51:00 Test Item Value Reference Range Interpretation Comments UA pH (test code = UA pH) 8.0 1 5.0-8.0 [facility] AND [id number] 07:51:00 Test Item Value Reference Range Interpretation Comments UA Spec Grav (test code = UA Spec 1.015 1 Grav) [facility] AND [id number] 07:51:00 Test Item Value Reference Range Interpretation Comments UA Bili (test code = Negative *NA*(09/04/14 UA Bili) 1:51 AM) [facility] AND [id number] 07:51:00 Test Item Value Reference Range Interpretation Comments UA Blood (test code = Large *ABN*(09/04/14 UA Blood) 1:51 AM) [facility] AND [id number] 07:51:00 Test Item Value Reference Range Interpretation Comments UA Leuk Est (test Negative (09/04/14 1:51 code = UA Leuk Est) AM) [facility] AND [id number] 07:51:00 Test Item Value Reference Range Interpretation Comments UA Nitrite (test code Negative (09/04/14 1:51 = UA Nitrite) AM) [facility] AND [id number] 07:51:00 Test Item Value Reference Range Interpretation Comments UA Amorph Joselin (test code = UA Few /HPF Amorph Joselin) [facility] AND [id number] 07:51:00 Test Item Value Reference Range Interpretation Comments UA RBC (test code 51-100 /HPF See_Comment [Automate d message] The = UA RBC) system which ge nerated this result tra nsmitted reference range : <=2. The reference r ozzy was not used to int erpret this result as normal/abnormal . [facility] AND [id number] 07:51:00 Test Item Value Reference Range Interpretation Comments UA WBC (test code = UA WBC) 6-10 /HPF [facility] AND [id number] 07:51:00 Test Item Value Reference Range Interpretation Comments UA Bacteria (test code = UA Few /HPF Bacteria) [facility] AND [id number] 07:51:00 Test Item Value Reference Range Interpretation Comments UA Sq Epi (test code = UA Sq Occasional /LPF Epi) [facility] [employer] [facility] [id number] 07:51:00 Test Item Value Reference Range Interpretation Comments ABO/Rh (test code = ABO/Rh) A POS [facility] [id number] 07:51:00 Test Item Value Reference Range Interpretation Comments Antibody Scrn (test Negative (09/04/14 1:51 code = Antibody Scrn) AM) [facility] [id number] 07:51:00 Test Item Value Reference Range Interpretation Comments Albumin Lvl (test code = Albumin Lvl) 3.4 3.5-5.0 [facility] [id number] 07:51:00 Test Item Value Reference Range Interpretation Comments Alk Phos (test code = Alk Phos) 64 39-136 [facility] [id number] 07:51:00 Test Item Value Reference Range Interpretation Comments ALT (test code = ALT) 18 See_Comment [Auto mated message] The system which ge nerated this result transmit gaye reference range : <=65. The reference range was not used to interpr et this result as satish l/abnormal. [facility] [id number] 07:51:00 Test Item Value Reference Range Interpretation Comments AST (test code = AST) 12 See_Comment [Auto mated message] The system which ge nerated this result transmit gaye reference range : <=37. The reference range was not used to interpr et this result as satish l/abnormal. [facility] [id number] 07:51:00 Test Item Value Reference Range Interpretation Comments eGFR (test code = eGFR) 93 [facility] [id number] 07:51:00 Test Item Value Reference Range Interpretation [...] Comments CO2 (test code = CO2) 22 -32 [facility]2015-01-23 07:51:00 Test [...] (test code = A/G Ratio) 0.9 0.7-1.6 [facility]ecnZQNIGISQPZIIG0506-80-78 07:51:00 Test Item Value Reference Range Interpretation Comments hCG Tot (test code = hCG Tot) no gt [facility] HospitalHwyybrvXUPPLQYQRM1148-02-22 07:51:00 Test Item Value Reference Range Interpretation Comments MCHC (test code = MCHC) 33.8 32.0-36.0 [facility] HospitalKjujchsCBCGOXJWPQ3387-06-93 07:51:00 Test Item Value Reference Range Interpretation Comments MCH (test code = MCH) 30.3 pg 27.0-31.0 [facility] HospitalEziusysZSJIQJIAQJ0834-29-40 07:51:00 Test Item Value Reference Range Interpretation Comments RDW (test code = RDW) 13.0 11.5-14.5 [facility] HospitalUftkxrdJQSHFUQJOT9933-92-56 07:51:00 Test Item Value Reference Range Interpretation Comments MPV (test code = MPV) 8.4 7.4-10.4 [facility] HospitalJzoputhBWVUQDJZOK3708-84-83 07:51:00 Test Item Value Reference Range Interpretation Comments Platelet (test code = Platelet) 356 133-450 [facility] HospitalPtsskidEIRLHJAHIH7124-89-93 07:51:00 Test Item Value Reference Range Interpretation Comments RBC (test code = RBC) 4.45 4.20-5.40 [facility] HospitalRisdmtiTFINLLGFUX9280-84-36 07:51:00 Test Item Value Reference Range Interpretation Comments WBC (test code = WBC) 12.9 3.7-10.4 [facility] HospitalYxwsliuYVJYMOTWWD0379-62-20 07:51:00 Test Item Value Reference Range Interpretation Comments Hgb (test code = Hgb) 13.5 12.0-16.0 [facility] HospitalHmstyopSBYAPRNFPU4267-27-84 07:51:00 Test Item Value Reference Range Interpretation Comments MCV (test code = MCV) 89.7 80.0-98.0 [facility] HospitalTjdvscjDWDCKZWVUU5316-01-57 07:51:00 Test Item Value Reference Range Interpretation Comments Hct (test code = Hct) 39.9 36.0-48.0 [facility] HospitalOtrbnjfWEFCMALRYU9764-69-74 07:51:00 Test Item Value Reference Range Interpretation Comments Eosinophils # (test code 0.3 See_Comment [A utomated message] The = Eosinophils #) system ic h generated this result tra nsmitted reference range : <=0.5. The reference r ozzy was not used to int erpret this result as normal/abnormal . [facility] HospitalAnvjekdBLHCDPAEJF4279-52-08 07:51:00 Test Item Value Reference Range Interpretation Comments Lymphocytes # (test code = Lymphocytes 3.6 1.0-5.5 #) [facility] HospitalWxfdmjsSSUJSFRAQO7088-60-82 07:51:00 Test Item Value Reference Range Interpretation Comments Monocytes # (test code 0.7 See_Comment [Aut omated message] The = Monocytes #) system which generated this result tra nsmitted reference range : <=0.8. The reference r ozzy was not used to int erpret this result as normal/abnormal . [facility] HospitalOkurdyuWFBNXLFFZD4786-14-66 07:51:00 Test Item Value Reference Range Interpretation Comments Segs (test code = Segs) 63.9 45.0-75.0 [facility] HospitalBnziazqUFIXPDQJXH8147-75-53 07:51:00 Test Item Value Reference Range Interpretation Comments Segs-Bands # (test code = Segs-Bands #) 8.2 1.5-8.1 [facility] HospitalSzhibpgZVNEUNDHGT0489-64-36 07:51:00 Test Item Value Reference Range Interpretation Comments Basophils (test code = 0.7 See_Comment [Aut omated message] The Basophils) system which ge nerated this result tra nsmitted reference range : <=1.0. The reference r ozzy was not used to int erpret this result as normal/abnormal . [facility] HospitalMdewzduKJFDSHLYNF5916-90-40 07:51:00 Test Item Value Reference Range Interpretation Comments Monocytes (test code = Monocytes) 5.4 2.0-12.0 [facility] HospitalUswkljmBPTZMUGYFH6133-70-63 07:51:00 Test Item Value Reference Range Interpretation Comments Eosinophils (test code = 2.3 See_Comment [A utomated message] The Eosinophils) system which ge nerated this result tra nsmitted reference range : <=4.0. The reference r ozzy was not used to int erpret this result as normal/abnormal . [facility] HospitalTlpjgvgXJNDJPEQPI0327-71-97 07:51:00 Test Item Value Reference Range Interpretation Comments Lymphocytes (test code = Lymphocytes) 27.7 20.0-40.0 [facility] DallasPisnftmSOXQTRLMJC2690-42-63 07:51:00 Test Item Value Reference Range Interpretation Comments Basophils # (test code 0.1 See_Comment [Aut omated message] The = Basophils #) system which generated this result tra nsmitted reference range : <=0.2. The reference r ozzy was not used to int erpret this result as normal/abnormal . [facility] AND [id number] 07:51:00 Test Item Value Reference Range Interpretation Comments UA Urobilinogen (test code = UA 1.0 0.1-1.0 Urobilinogen) [facility] AND [id number] 07:51:00 Test Item Value Reference Range Interpretation Comments UA Turbidity (test code Cloudy *ABN*(09/04/14 = UA Turbidity) 1:51 AM) [facility] AND [id number] 07:51:00 Test Item Value Reference Range Interpretation Comments UA Color (test code = Red *ABN*(09/04/14 1:51 UA Color) AM) [facility] AND [id number] 07:51:00 Test Item Value Reference Range Interpretation Comments UA Ketones (test code Negative *NA*(09/04/14 = UA Ketones) 1:51 AM) [facility] AND [id number] 07:51:00 Test Item Value Reference Range Interpretation Comments UA Glucose (test code Negative (09/04/14 1:51 = UA Glucose) AM) [facility] AND [id number] 07:51:00 Test Item Value Reference Range Interpretation Comments UA Protein (test code = Trace *ABN*(09/04/14 UA Protein) 1:51 AM) [facility] AND [id number] 07:51:00 Test Item Value Reference Range Interpretation Comments UA pH (test code = UA pH) 8.0 1 5.0-8.0 [facility] AND [id number] 07:51:00 Test Item Value Reference Range Interpretation Comments UA Spec Grav (test code = UA Spec 1.015 1 Grav) [facility] AND [id number] 07:51:00 Test Item Value Reference Range Interpretation Comments UA Bili (test code = Negative *NA*(09/04/14 UA Bili) 1:51 AM) [facility] AND [id number] 07:51:00 Test Item Value Reference Range Interpretation Comments UA Blood (test code = Large *ABN*(09/04/14 UA Blood) 1:51 AM) [facility] AND [id number] 07:51:00 Test Item Value Reference Range Interpretation Comments UA Leuk Est (test Negative (09/04/14 1:51 code = UA Leuk Est) AM) [facility] AND [id number] 07:51:00 Test Item Value Reference Range Interpretation Comments UA Nitrite (test code Negative (09/04/14 1:51 = UA Nitrite) AM) [facility] AND [id number] 07:51:00 Test Item Value Reference Range Interpretation Comments UA Amorph Joselin (test code = UA Few /HPF Amorph Joselin) [facility] AND [id number] 07:51:00 Test Item Value Reference Range Interpretation Comments UA RBC (test code 51-100 /HPF See_Comment [Automate d message] The = UA RBC) system which ge nerated this result tra nsmitted reference range : <=2. The reference r ozzy was not used to int erpret this result as normal/abnormal . [facility] AND [id number] 07:51:00 Test Item Value Reference Range Interpretation Comments UA WBC (test code = UA WBC) 6-10 /HPF [facility] AND [id number] 07:51:00 Test Item Value Reference Range Interpretation Comments UA Bacteria (test code = UA Few /HPF Bacteria) [facility] AND [id number] 07:51:00 Test Item Value Reference Range Interpretation Comments UA Sq Epi (test code = UA Sq Occasional /LPF Epi) [facility] [employer] [facility] [id number] 07:51:00 Test Item Value Reference Range Interpretation Comments ABO/Rh (test code = ABO/Rh) A POS [facility] [employer] [facility] [id number] 07:51:00 Test Item Value Reference Range Interpretation Comments Antibody Scrn (test Negative (09/04/14 1:51 code = Antibody Scrn) AM) [facility] DexterraannCHEM [id number] 07:51:00 Test Item Value Reference Range Interpretation [...] interpr et this result as satish l/abnormal. [place] [id number] 07:51:00 Test Item Value Reference Range Interpretation [...] (test code = A/G Ratio) 0.9 0.7-1.6 [place] [id number] 07:51:00 Test Item Value Reference Range Interpretation Comments hCG Tot (test code = hCG Tot) no gt [facility] HospitalZncfzdtMOISPXWWDW6923-02-73 07:51:00 Test Item Value Reference Range Interpretation Comments MCHC (test code = MCHC) 33.8 32.0-36.0 [facility] HospitalXfydwedJAHENAKCRR2832-22-74 07:51:00 Test Item Value Reference Range Interpretation Comments MCH (test code = MCH) 30.3 pg 27.0-31.0 [facility] HospitalToamkzaZFJVOTGVEN4134-28-02 07:51:00 Test Item Value Reference Range Interpretation Comments RDW (test code = RDW) 13.0 11.5-14.5 [facility] HospitalEmxblhbFUCQEQLGQJ1282-67-27 07:51:00 Test Item Value Reference Range Interpretation Comments MPV (test code = MPV) 8.4 7.4-10.4 [facility] HospitalSccpyafKKSXUGQMXY2266-32-33 07:51:00 Test Item Value Reference Range Interpretation Comments Platelet (test code = Platelet) 356 133-450 [facility] HospitalLaawzokXMVFNJVKPR8198-93-80 07:51:00 Test Item Value Reference Range Interpretation Comments RBC (test code = RBC) 4.45 4.20-5.40 [facility] HospitalIhabdmvFORBCPDQJB9535-66-14 07:51:00 Test Item Value Reference Range Interpretation Comments WBC (test code = WBC) 12.9 3.7-10.4 [facility] HospitalGctxthaWFCOOMSDOD4258-25-31 07:51:00 Test Item Value Reference Range Interpretation Comments Hgb (test code = Hgb) 13.5 12.0-16.0 [facility] HospitalItbvkfrMYULETLFJR7092-02-29 07:51:00 Test Item Value Reference Range Interpretation Comments MCV (test code = MCV) 89.7 80.0-98.0 [facility] HospitalDubujkhSIXYFUHALL3700-67-98 07:51:00 Test Item Value Reference Range Interpretation Comments Hct (test code = Hct) 39.9 36.0-48.0 [facility] HospitalNduuchpOIDKMAXXUF2362-49-11 07:51:00 Test Item Value Reference Range Interpretation Comments Eosinophils # (test code 0.3 See_Comment [A utomated message] The = Eosinophils #) system whic h generated this result tra nsmitted reference range : <=0.5. The reference r ozzy was not used to int erpret this result as normal/abnormal . [facility] HospitalShmrjwcYQMLHKWKHX4155-95-99 07:51:00 Test Item Value Reference Range Interpretation Comments Lymphocytes # (test code = Lymphocytes 3.6 1.0-5.5 #) [facility] HospitalWmfqluoVNELVWHUIZ0658-46-75 07:51:00 Test Item Value Reference Range Interpretation Comments Monocytes # (test code 0.7 See_Comment [Aut omated message] The = Monocytes #) system which generated this result tra nsmitted reference range : <=0.8. The reference r ozzy was not used to int erpret this result as normal/abnormal . [facility] HospitalOxbtqhjNQKOWJFHAT4854-97-32 07:51:00 Test Item Value Reference Range Interpretation Comments Segs (test code = Segs) 63.9 45.0-75.0 [facility] HospitalBxoydwrNARYMKKEZL1439-27-87 07:51:00 Test Item Value Reference Range Interpretation Comments Segs-Bands # (test code = Segs-Bands #) 8.2 1.5-8.1 [facility]AcpoxceAJDWSZUZKL3845-12-12 07:51:00 Test Item Value Reference Range Interpretation Comments Basophils (test code = 0.7 See_Comment [Aut omated message] The Basophils) system which ge nerated this result tra nsmitted reference range : <=1.0. The reference r ozzy was not used to int erpret this result as normal/abnormal . [facility] HospitalWmgsvqhPFTNREEQJR0194-31-11 07:51:00 Test Item Value Reference Range Interpretation Comments Monocytes (test code = Monocytes) 5.4 2.0-12.0 [facility] HospitalHeduprcFMKSLRAOXT5526-74-18 07:51:00 Test Item Value Reference Range Interpretation Comments Eosinophils (test code = 2.3 See_Comment [A utomated message] The Eosinophils) system which ge nerated this result tra nsmitted reference range : <=4.0. The reference r ozzy was not used to int erpret this result as normal/abnormal . [facility] HospitalVcrfothGWDTKCEJIQ2658-07-15 07:51:00 Test Item Value Reference Range Interpretation Comments Lymphocytes (test code = Lymphocytes) 27.7 20.0-40.0 [facility] HospitalQlmldafGCTTKJVOJB2261-89-54 07:51:00 Test Item Value Reference Range Interpretation Comments Basophils # (test code 0.1 See_Comment [Aut omated message] The = Basophils #) system which generated this result tra nsmitted reference range : <=0.2. The reference r ozzy was not used to int erpret this result as normal/abnormal . [facility]2015-01-23 07:51:00 Test Item Value Reference Range Interpretation Comments UA Urobilinogen (test code = UA 1.0 0.1-1.0 Urobilinogen) [facility]2015-01-23 07:51:00 Test Item Value Reference Range Interpretation Comments UA Turbidity (test code Cloudy *ABN*(09/04/14 = UA Turbidity) 1:51 AM) [facility]2015-01-23 07:51:00 Test Item Value Reference Range Interpretation Comments UA Color (test code = Red *ABN*(09/04/14 1:51 UA Color) AM) [facility] AND [id number] 07:51:00 Test Item Value Reference Range Interpretation Comments UA Ketones (test code Negative *NA*(09/04/14 = UA Ketones) 1:51 AM) [facility] AND [id number] 07:51:00 Test Item Value Reference Range Interpretation Comments UA Glucose (test code Negative (09/04/14 1:51 = UA Glucose) AM) [facility] AND [id number] 07:51:00 Test Item Value Reference Range Interpretation Comments UA Protein (test code = Trace *ABN*(09/04/14 UA Protein) 1:51 AM) [facility] AND [id number] 07:51:00 Test Item Value Reference Range Interpretation Comments UA pH (test code = UA pH) 8.0 1 5.0-8.0 [facility] AND [id number] 07:51:00 Test Item Value Reference Range Interpretation Comments UA Spec Grav (test code = UA Spec 1.015 1 Grav) [facility] AND [id number] 07:51:00 Test Item Value Reference Range Interpretation Comments UA Bili (test code = Negative *NA*(09/04/14 UA Bili) 1:51 AM) [facility] AND [id number] 07:51:00 Test Item Value Reference Range Interpretation Comments UA Blood (test code = Large *ABN*(09/04/14 UA Blood) 1:51 AM) [facility] AND [id number] 07:51:00 Test Item Value Reference Range Interpretation Comments UA Leuk Est (test Negative (09/04/14 1:51 code = UA Leuk Est) AM) [facility] AND [id number] 07:51:00 Test Item Value Reference Range Interpretation Comments UA Nitrite (test code Negative (09/04/14 1:51 = UA Nitrite) AM) [facility] AND [id number] 07:51:00 Test Item Value Reference Range Interpretation Comments UA Amorph Joselin (test code = UA Few /HPF Amorph Joselin) [facility] AND [id number] 07:51:00 Test Item Value Reference Range Interpretation Comments UA RBC (test code 51-100 /HPF See_Comment [Automate d message] The = UA RBC) system which ge nerated this result tra nsmitted reference range : <=2. The reference r ozzy was not used to int erpret this result as normal/abnormal . [facility] AND [id number] 07:51:00 Test Item Value Reference Range Interpretation Comments UA WBC (test code = UA WBC) 6-10 /HPF [facility] AND [id number] 07:51:00 Test Item Value Reference Range Interpretation Comments UA Bacteria (test code = UA Few /HPF Bacteria) [facility] AND [id number] 07:51:00 Test Item Value Reference Range Interpretation Comments UA Sq Epi (test code = UA Sq Occasional /LPF Epi) [facility] [employer] [facility] [id number] 07:51:00 Test Item Value Reference Range Interpretation Comments ABO/Rh (test code = ABO/Rh) A POS [facility] [id number] 07:51:00 Test Item Value Reference Range Interpretation Comments Antibody Scrn (test Negative (09/04/14 1:51 code = Antibody Scrn) AM) [facility] [id number] 07:51:00 Test Item Value Reference Range Interpretation Comments Albumin Lvl (test code = Albumin Lvl) 3.4 3.5-5.0 [facility] [id number] 07:51:00 Test Item Value Reference Range Interpretation Comments Alk Phos (test code = Alk Phos) 64 39-136 [facility] [id number] 07:51:00 Test Item Value Reference Range Interpretation Comments ALT (test code = ALT) 18 See_Comment [Auto mated message] The system which ge nerated this result transmit gaye reference range : <=65. The reference range was not used to interpr et this result as satish l/abnormal. [facility] [id number] 07:51:00 Test Item Value Reference Range Interpretation Comments AST (test code = AST) 12 See_Comment [Auto mated message] The system which ge nerated this result transmit gaye reference range : <=37. The reference range was not used to interpr et this result as satish l/abnormal. AGELON ? [id number] 07:51:00 Test Item Value Reference Range Interpretation [...] (test code = Globulin) 3.9 2.0-4.0 [facility] [id number] 07:51:00 Test Item Value Reference Range Interpretation Comments A/G Ratio (test code = A/G Ratio) 0.9 0.7-1.6 [facility]UwsilwgMIVAKBAMOUDYL8405-52-35 07:51:00 Test Item Value Reference Range Interpretation Comments hCG Tot (test code = hCG Tot) no gt [facility] H[id number] 07:51:00 Test Item Value Reference Range Interpretation Comments MCHC (test code = MCHC) 33.8 32.0-36.0 [facility] Ho[id number] 07:51:00 Test Item Value Reference Range Interpretation Comments MCH (test code = MCH) 30.3 pg 27.0-31.0 [facility] HospitalIrtprmzJDJXAXKZFJ7807-85-84 07:51:00 Test Item Value Reference Range Interpretation Comments RDW (test code = RDW) 13.0 11.5-14.5 [facility] HospitalZalzzdlKZQLZLZEUG6452-26-02 07:51:00 Test Item Value Reference Range Interpretation Comments MPV (test code = MPV) 8.4 7.4-10.4 [facility] HospitalVvrptjaUDPEDQPPKK6521-03-70 07:51:00 Test Item Value Reference Range Interpretation Comments Platelet (test code = Platelet) 356 133-450 [facility] HospitalWexkrniYJCGOBGVFU8417-45-73 07:51:00 Test Item Value Reference Range Interpretation Comments RBC (test code = RBC) 4.45 4.20-5.40 [facility] HospitalHquzqpuYXFKCRLXGM2851-50-17 07:51:00 Test Item Value Reference Range Interpretation Comments WBC (test code = WBC) 12.9 3.7-10.4 [facility] HospitalFnbksblXVMUIJHQRD4141-84-50 07:51:00 Test Item Value Reference Range Interpretation Comments Hgb (test code = Hgb) 13.5 12.0-16.0 [facility] HospitalEsaqqqwACHCISLKLC1283-43-57 07:51:00 Test Item Value Reference Range Interpretation Comments MCV (test code = MCV) 89.7 80.0-98.0 [facility] HospitalPpfoozuWZAILHWPTC5147-33-05 07:51:00 Test Item Value Reference Range Interpretation Comments Hct (test code = Hct) 39.9 36.0-48.0 [facility] HospitalIlygnzvENNNVEGDMW9678-79-47 07:51:00 Test Item Value Reference Range Interpretation Comments Eosinophils # (test code 0.3 See_Comment [A utomated message] The = Eosinophils #) system whic h generated this result tra nsmitted reference range : <=0.5. The reference r ozzy was not used to int erpret this result as normal/abnormal . [facility] HospitalOlsbdwpTMCWZBMYNE4060-22-94 07:51:00 Test Item Value Reference Range Interpretation Comments Lymphocytes # (test code = Lymphocytes 3.6 1.0-5.5 #) [facility] HospitalAquqgotLIMCVWHBRY2355-70-94 07:51:00 Test Item Value Reference Range Interpretation Comments Monocytes # (test code 0.7 See_Comment [Aut omated message] The = Monocytes #) system which generated this result tra nsmitted reference range : <=0.8. The reference r ozzy was not used to int erpret this result as normal/abnormal . [facility] HospitalRapvzqaGNNGWDGLFM8415-20-42 07:51:00 Test Item Value Reference Range Interpretation Comments Segs (test code = Segs) 63.9 45.0-75.0 [facility] HospitalOdrroofEQBAIYTTTJ3599-41-60 07:51:00 Test Item Value Reference Range Interpretation Comments Segs-Bands # (test code = Segs-Bands #) 8.2 1.5-8.1 [facility] HospitalGhsioouQUACSZKIFP3914-08-85 07:51:00 Test Item Value Reference Range Interpretation Comments Basophils (test code = 0.7 See_Comment [Aut omated message] The Basophils) system which ge nerated this result tra nsmitted reference range : <=1.0. The reference r ozzy was not used to int erpret this result as normal/abnormal . [facility] HospitalVmcpldoUYCUHKUGWB4825-95-29 07:51:00 Test Item Value Reference Range Interpretation Comments Monocytes (test code = Monocytes) 5.4 2.0-12.0 [facility] HospitalOcvcqbgOJNIAJUQFD6234-88-89 07:51:00 Test Item Value Reference Range Interpretation Comments Eosinophils (test code = 2.3 See_Comment [A utomated message] The Eosinophils) system which ge nerated this result tra nsmitted reference range : <=4.0. The reference r ozzy was not used to int erpret this result as normal/abnormal . [facility] HospitalDtitjpiFIXATXNMEC8786-06-24 07:51:00 Test Item Value Reference Range Interpretation Comments Lymphocytes (test code = Lymphocytes) 27.7 20.0-40.0 [facility] HospitalWaofsbjWXSLOUTAHG9772-89-07 07:51:00 Test Item Value Reference Range Interpretation Comments Basophils # (test code 0.1 See_Comment [Aut omated message] The = Basophils #) system which generated this result tra nsmitted reference range : <=0.2. The reference r ozzy was not used to int erpret this result as normal/abnormal . [facility] AND [id number] 07:51:00 Test Item Value Reference Range Interpretation Comments UA Urobilinogen (test code = UA 1.0 0.1-1.0 Urobilinogen) [facility] AND [id number] 07:51:00 Test Item Value Reference Range Interpretation Comments UA Turbidity (test code Cloudy *ABN*(09/04/14 = UA Turbidity) 1:51 AM) [facility] AND [id number] 07:51:00 Test Item Value Reference Range Interpretation Comments UA Color (test code = Red *ABN*(09/04/14 1:51 UA Color) AM) [facility] AND [id number] 07:51:00 Test Item Value Reference Range Interpretation Comments UA Ketones (test code Negative *NA*(09/04/14 = UA Ketones) 1:51 AM) [facility] AND [id number] 07:51:00 Test Item Value Reference Range Interpretation Comments UA Glucose (test code Negative (09/04/14 1:51 = UA Glucose) AM) [facility] AND [id number] 07:51:00 Test Item Value Reference Range Interpretation Comments UA Protein (test code = Trace *ABN*(09/04/14 UA Protein) 1:51 AM) [facility] AND [id number] 07:51:00 Test Item Value Reference Range Interpretation Comments UA pH (test code = UA pH) 8.0 1 5.0-8.0 [facility] AND [id number] 07:51:00 Test Item Value Reference Range Interpretation Comments UA Spec Grav (test code = UA Spec 1.015 1 Grav) [facility] AND [id number] 07:51:00 Test Item Value Reference Range Interpretation Comments UA Bili (test code = Negative *NA*(09/04/14 UA Bili) 1:51 AM) [facility] AND [id number] 07:51:00 Test Item Value Reference Range Interpretation Comments UA Blood (test code = Large *ABN*(09/04/14 UA Blood) 1:51 AM) [facility] AND [id number] 07:51:00 Test Item Value Reference Range Interpretation Comments UA Leuk Est (test Negative (09/04/14 1:51 code = UA Leuk Est) AM) [facility] AND [id number] 07:51:00 Test Item Value Reference Range Interpretation Comments UA Nitrite (test code Negative (09/04/14 1:51 = UA Nitrite) AM) [facility] AND [id number] 07:51:00 Test Item Value Reference Range Interpretation Comments UA Amorph Joselin (test code = UA Few /HPF Amorph Joselin) [facility] AND [id number] 07:51:00 Test Item Value Reference Range Interpretation Comments UA RBC (test code 51-100 /HPF See_Comment [Automate d message] The = UA RBC) system which ge nerated this result tra nsmitted reference range : <=2. The reference r ozzy was not used to int erpret this result as normal/abnormal . [facility] AND [id number] 07:51:00 Test Item Value Reference Range Interpretation Comments UA WBC (test code = UA WBC) 6-10 /HPF [facility] AND [id number] 07:51:00 Test Item Value Reference Range Interpretation Comments UA Bacteria (test code = UA Few /HPF Bacteria) [facility] AND [id number] 07:51:00 Test Item Value Reference Range Interpretation Comments UA Sq Epi (test code = UA Sq Occasional /LPF Epi) [facility] [id number] 07:51:00 Test Item Value Reference Range Interpretation Comments ABO/Rh (test code = ABO/Rh) A POS [facility] [id number] 07:51:00 Test Item Value Reference Range Interpretation [...] A/G Ratio) 0.9 0.7-1.6 [facility] CenterZtozrmpOSDMXTIRRECVA3175-91-43 07:51:00 Test Item Value Reference Range Interpretation Comments hCG Tot (test code = hCG Tot) no gt [facility] HospitalDwndmsmGPQXRYENBR9762-15-60 07:51:00 Test Item Value Reference Range Interpretation Comments MCHC (test code = MCHC) 33.8 32.0-36.0 [facility] HospitalDrxquynGSTZSHMRGE6029-34-73 07:51:00 Test Item Value Reference Range Interpretation Comments MCH (test code = MCH) 30.3 pg 27.0-31.0 [facility] HospitalLylvmetTZLDNGSJGN7067-55-06 07:51:00 Test Item Value Reference Range Interpretation Comments RDW (test code = RDW) 13.0 11.5-14.5 [facility] HospitalNhpjsoxNTOSTZBLOA0098-23-14 07:51:00 Test Item Value Reference Range Interpretation Comments MPV (test code = MPV) 8.4 7.4-10.4 [place] [id number] 07:51:00 Test Item Value Reference Range Interpretation Comments Platelet (test code = Platelet) 356 133-450 [facility] HospitalZtcoqqtQMNHZVEXES1677-58-87 07:51:00 Test Item Value Reference Range Interpretation Comments RBC (test code = RBC) 4.45 4.20-5.40 [facility] HospitalEcvparwSPAFCDAURU3559-53-64 07:51:00 Test Item Value Reference Range Interpretation Comments WBC (test code = WBC) 12.9 3.7-10.4 [facility] HospitalUzixfjzTFSOWTZPFG0955-98-21 07:51:00 Test Item Value Reference Range Interpretation Comments Hgb (test code = Hgb) 13.5 12.0-16.0 [facility] HospitalKjhcjggVRIJSZWCQV6433-23-45 07:51:00 Test Item Value Reference Range Interpretation Comments MCV (test code = MCV) 89.7 80.0-98.0 [facility] HospitalVtsxokkSDUOZNWQEX8484-96-23 07:51:00 Test Item Value Reference Range Interpretation Comments Hct (test code = Hct) 39.9 36.0-48.0 [facility] HospitalBzqkjvwSSKFRSJEHC7984-08-10 07:51:00 Test Item Value Reference Range Interpretation Comments Eosinophils # (test code 0.3 See_Comment [A utomated message] The = Eosinophils #) system whic h generated this result tra nsmitted reference range : <=0.5. The reference r ozzy was not used to int erpret this result as normal/abnormal . [facility] HospitalFblpzoeBXRXVECPKM2825-04-66 07:51:00 Test Item Value Reference Range Interpretation Comments Lymphocytes # (test code = Lymphocytes 3.6 1.0-5.5 #) [facility] HospitalQqnjvwvLCFUDTDHTY3710-99-20 07:51:00 Test Item Value Reference Range Interpretation Comments Monocytes # (test code 0.7 See_Comment [Aut omated message] The = Monocytes #) system which generated this result tra nsmitted reference range : <=0.8. The reference r ozzy was not used to int erpret this result as normal/abnormal . [facility] HospitalVandwumYNXALPUHJZ2164-43-33 07:51:00 Test Item Value Reference Range Interpretation Comments Segs (test code = Segs) 63.9 45.0-75.0 [facility] HospitalBvhysqcCEONZZHCXJ2766-11-22 07:51:00 Test Item Value Reference Range Interpretation Comments Segs-Bands # (test code = Segs-Bands #) 8.2 1.5-8.1 [facility] HospitalBmmonxeMLPCFVZGMK7701-49-55 07:51:00 Test Item Value Reference Range Interpretation Comments Basophils (test code = 0.7 See_Comment [Aut omated message] The Basophils) system which ge nerated this result tra nsmitted reference range : <=1.0. The reference r ozzy was not used to int erpret this result as normal/abnormal . [facility] HospitalSwdgpraZKKHQPUBGV3356-97-01 07:51:00 Test Item Value Reference Range Interpretation Comments Monocytes (test code = Monocytes) 5.4 2.0-12.0 [facility] HospitalPqlbevfKBDUJCEODH5812-58-84 07:51:00 Test Item Value Reference Range Interpretation Comments Eosinophils (test code = 2.3 See_Comment [A utomated message] The Eosinophils) system which ge nerated this result tra nsmitted reference range : <=4.0. The reference r ozzy was not used to int erpret this result as normal/abnormal . [facility] HospitalApdygvfBCVGPWOVFZ7478-80-67 07:51:00 Test Item Value Reference Range Interpretation Comments Lymphocytes (test code = Lymphocytes) 27.7 20.0-40.0 [facility] HospitalDtjyhaeXDXWIIZYTI9908-08-83 07:51:00 Test Item Value Reference Range Interpretation Comments Basophils # (test code 0.1 See_Comment [Aut omated message] The = Basophils #) system which generated this result tra nsmitted reference range : <=0.2. The reference r ozzy was not used to int erpret this result as normal/abnormal . [facility]2015-01-23 07:51:00 Test Item Value Reference Range Interpretation Comments UA Urobilinogen (test code = UA 1.0 0.1-1.0 Urobilinogen) [facility]2015-01-23 07:51:00 Test Item Value Reference Range Interpretation Comments UA Turbidity (test code Cloudy *ABN*(09/04/14 = UA Turbidity) 1:51 AM) [facility] AND [id number] 07:51:00 Test Item Value Reference Range Interpretation Comments UA Color (test code = Red *ABN*(09/04/14 1:51 UA Color) AM) [facility] AND [id number] 07:51:00 Test Item Value Reference Range Interpretation Comments UA Ketones (test code Negative *NA*(09/04/14 = UA Ketones) 1:51 AM) [facility] AND [id number] 07:51:00 Test Item Value Reference Range Interpretation Comments UA Glucose (test code Negative (09/04/14 1:51 = UA Glucose) AM) [facility] AND [id number] 07:51:00 Test Item Value Reference Range Interpretation Comments UA Protein (test code = Trace *ABN*(09/04/14 UA Protein) 1:51 AM) [facility] AND [id number] 07:51:00 Test Item Value Reference Range Interpretation Comments UA pH (test code = UA pH) 8.0 1 5.0-8.0 [facility] AND [id number] 07:51:00 Test Item Value Reference Range Interpretation Comments UA Spec Grav (test code = UA Spec 1.015 1 Grav) [facility] AND [id number] 07:51:00 Test Item Value Reference Range Interpretation Comments UA Bili (test code = Negative *NA*(09/04/14 UA Bili) 1:51 AM) [facility] AND [id number] 07:51:00 Test Item Value Reference Range Interpretation Comments UA Blood (test code = Large *ABN*(09/04/14 UA Blood) 1:51 AM) [facility] AND [id number] 07:51:00 Test Item Value Reference Range Interpretation Comments UA Leuk Est (test Negative (09/04/14 1:51 code = UA Leuk Est) AM) [facility] AND [id number] 07:51:00 Test Item Value Reference Range Interpretation Comments UA Nitrite (test code Negative (09/04/14 1:51 = UA Nitrite) AM) [facility] AND [id number] 07:51:00 Test Item Value Reference Range Interpretation Comments UA Amorph Joselin (test code = UA Few /HPF Amorph Joselin) [facility] [id number] 07:51:00 Test Item Value Reference Range Interpretation Comments UA RBC (test code 51-100 /HPF See_Comment [Automate d message] The = UA RBC) system which ge nerated this result tra nsmitted reference range : <=2. The reference r ozzy was not used to int erpret this result as normal/abnormal . [facility] [id number] 07:51:00 Test Item Value Reference Range Interpretation Comments UA WBC (test code = UA WBC) 6-10 /HPF [facility] [id number] 07:51:00 Test Item Value Reference Range Interpretation Comments UA Bacteria (test code = UA Few /HPF Bacteria) [facility] AND [id number] 07:51:00 Test Item Value Reference Range Interpretation Comments UA Sq Epi (test code = UA Sq Occasional /LPF Epi) [facility] [id number] 07:51:00 Test Item Value Reference Range Interpretation Comments ABO/Rh (test code = ABO/Rh) A POS [facility] [id number] 07:51:00 Test Item Value Reference Range Interpretation Comments Antibody Scrn (test Negative (09/04/14 1:51 code = Antibody Scrn) AM) [facility] [id number] 07:51:00 Test Item Value Reference Range Interpretation Comments Albumin Lvl (test code = Albumin Lvl) 3.4 3.5-5.0 [facility] [id number] 07:51:00 Test Item Value Reference Range Interpretation Comments Alk Phos (test code = Alk Phos) 64 39-136 [facility] [id number] 07:51:00 Test Item Value Reference Range Interpretation Comments ALT (test code = ALT) 18 See_Comment [Auto mated message] The system which ge nerated this result transmit gaye reference range : <=65. The reference range was not used to interpr et this result as satish l/abnormal. AGELON ? [id number] 07:51:00 Test Item Value Reference Range Interpretation [...] A/G Ratio) 0.9 0.7-1.6 [facility] CenterCkpcnlxTGKJTUMZRKDFD1013-57-37 07:51:00 Test Item Value Reference Range Interpretation Comments hCG Tot (test code = hCG Tot) no gt [facility] HospitalCcehrwwQJSQVCUVST2573-33-17 07:51:00 Test Item Value Reference Range Interpretation Comments MCHC (test code = MCHC) 33.8 32.0-36.0 [facility] HospitalLuqrsctFTQARQSUKH1722-19-38 07:51:00 Test Item Value Reference Range Interpretation Comments MCH (test code = MCH) 30.3 pg 27.0-31.0 [facility] HospitalFicvbxmPGOEPLMKHY3021-44-02 07:51:00 Test Item Value Reference Range Interpretation Comments RDW (test code = RDW) 13.0 11.5-14.5 [facility] [facility]FIWGF[facility]ULU1243[facility]69-51 07:51:00 Test Item Value Reference Range Interpretation Comments MPV (test code = MPV) 8.4 7.4-10.4 [facility]WshpkuqDVXXSFFEHD5044-23-08 07:51:00 Test Item Value Reference Range Interpretation Comments Platelet (test code = Platelet) 356 133-450 [facility] HospitalTgfdtxdGAAUGNZGUY4317-46-20 07:51:00 Test Item Value Reference Range Interpretation Comments RBC (test code = RBC) 4.45 4.20-5.40 [facility] HospitalYoxfpxiGDSRGGKPIK4250-45-74 07:51:00 Test Item Value Reference Range Interpretation Comments WBC (test code = WBC) 12.9 3.7-10.4 [facility] HospitalPcaicwiUCOJPSDZBD0299-50-40 07:51:00 Test Item Value Reference Range Interpretation Comments Hgb (test code = Hgb) 13.5 12.0-16.0 [place] [id number] 07:51:00 Test Item Value Reference Range Interpretation Comments MCV (test code = MCV) 89.7 80.0-98.0 [facility] HospitalTnjlbhsHFHDLURLWG0464-53-07 07:51:00 Test Item Value Reference Range Interpretation Comments Hct (test code = Hct) 39.9 36.0-48.0 [facility] HospitalMbmvhntJZMHCJMTOQ1209-38-78 07:51:00 Test Item Value Reference Range Interpretation Comments Eosinophils # (test code 0.3 See_Comment [A utomated message] The = Eosinophils #) system whic h generated this result tra nsmitted reference range : <=0.5. The reference r ozzy was not used to int erpret this result as normal/abnormal . [facility] HospitalHafcdnqSWHSZGCWYK0165-22-78 07:51:00 Test Item Value Reference Range Interpretation Comments Lymphocytes # (test code = Lymphocytes 3.6 1.0-5.5 #) [facility] HospitalJihtxykKKCACBRADT1499-45-99 07:51:00 Test Item Value Reference Range Interpretation Comments Monocytes # (test code 0.7 See_Comment [Aut omated message] The = Monocytes #) system which generated this result tra nsmitted reference range : <=0.8. The reference r ozzy was not used to int erpret this result as normal/abnormal . [facility] HospitalUvxkuorIAGZZCLCTB5819-84-57 07:51:00 Test Item Value Reference Range Interpretation Comments Segs (test code = Segs) 63.9 45.0-75.0 [facility] HospitalTdbrqztUCYWXOTELD2172-24-77 07:51:00 Test Item Value Reference Range Interpretation Comments Segs-Bands # (test code = Segs-Bands #) 8.2 1.5-8.1 [facility] HospitalFvloleuHEYRQGRZWZ7128-75-90 07:51:00 Test Item Value Reference Range Interpretation Comments Basophils (test code = 0.7 See_Comment [Aut omated message] The Basophils) system which ge nerated this result tra nsmitted reference range : <=1.0. The reference r ozzy was not used to int erpret this result as normal/abnormal . [facility] HospitalDsozmqrKKBBSKFAUP1174-78-98 07:51:00 Test Item Value Reference Range Interpretation Comments Monocytes (test code = Monocytes) 5.4 2.0-12.0 [facility] HospitalSsbmjikEXBRSHBYZY5257-58-81 07:51:00 Test Item Value Reference Range Interpretation Comments Eosinophils (test code = 2.3 See_Comment [A utomated message] The Eosinophils) system which ge nerated this result tra nsmitted reference range : <=4.0. The reference r ozzy was not used to int erpret this result as normal/abnormal . [facility] HospitalZmchaaqMHEELNBFSU1719-19-80 07:51:00 Test Item Value Reference Range Interpretation Comments Lymphocytes (test code = Lymphocytes) 27.7 20.0-40.0 [facility] HospitalPtylofqYSQKRCNOXG2520-35-96 07:51:00 Test Item Value Reference Range Interpretation Comments Basophils # (test code 0.1 See_Comment [Aut omated message] The = Basophils #) system which generated this result tra nsmitted reference range : <=0.2. The reference r ozzy was not used to int erpret this result as normal/abnormal . [facility] AND [id number] 07:51:00 Test Item Value Reference Range Interpretation Comments UA Urobilinogen (test code = UA 1.0 0.1-1.0 Urobilinogen) [facility] AND [id number] 07:51:00 Test Item Value Reference Range Interpretation Comments UA Turbidity (test code Cloudy *ABN*(09/04/14 = UA Turbidity) 1:51 AM) [facility] AND [id number] 07:51:00 Test Item Value Reference Range Interpretation Comments UA Color (test code = Red *ABN*(09/04/14 1:51 UA Color) AM) [facility] AND [id number] 07:51:00 Test Item Value Reference Range Interpretation Comments UA Ketones (test code Negative *NA*(09/04/14 = UA Ketones) 1:51 AM) [facility] AND [id number] 07:51:00 Test Item Value Reference Range Interpretation Comments UA Glucose (test code Negative (09/04/14 1:51 = UA Glucose) AM) [facility] AND [id number] 07:51:00 Test Item Value Reference Range Interpretation Comments UA Protein (test code = Trace *ABN*(09/04/14 UA Protein) 1:51 AM) [facility] AND [id number] 07:51:00 Test Item Value Reference Range Interpretation Comments UA pH (test code = UA pH) 8.0 1 5.0-8.0 [facility] AND [id number] 07:51:00 Test Item Value Reference Range Interpretation Comments UA Spec Grav (test code = UA Spec 1.015 1 Grav) [facility] AND [id number] 07:51:00 Test Item Value Reference Range Interpretation Comments UA Bili (test code = Negative *NA*(09/04/14 UA Bili) 1:51 AM) [facility] AND [id number] 07:51:00 Test Item Value Reference Range Interpretation Comments UA Blood (test code = Large *ABN*(09/04/14 UA Blood) 1:51 AM) [facility] AND [id number] 07:51:00 Test Item Value Reference Range Interpretation Comments UA Leuk Est (test Negative (09/04/14 1:51 code = UA Leuk Est) AM) [facility] AND [id number] 07:51:00 Test Item Value Reference Range Interpretation Comments UA Nitrite (test code Negative (09/04/14 1:51 = UA Nitrite) AM) [facility] AND [id number] 07:51:00 Test Item Value Reference Range Interpretation Comments UA Amorph Joselin (test code = UA Few /HPF Amorph Joselin) [facility] AND [id number] 07:51:00 Test Item Value Reference Range Interpretation Comments UA RBC (test code 51-100 /HPF See_Comment [Automate d message] The = UA RBC) system which ge nerated this result tra nsmitted reference range : <=2. The reference r ozzy was not used to int erpret this result as normal/abnormal . [facility] AND [id number] 07:51:00 Test Item Value Reference Range Interpretation Comments UA WBC (test code = UA WBC) 6-10 /HPF [facility] AND [id number] 07:51:00 Test Item Value Reference Range Interpretation Comments UA Bacteria (test code = UA Few /HPF Bacteria) [facility] AND [id number] 07:51:00 Test Item Value Reference Range Interpretation Comments UA Sq Epi (test code = UA Sq Occasional /LPF Epi) [facility] [id number] 07:51:00 Test Item Value Reference Range Interpretation Comments ABO/Rh (test code = ABO/Rh) A POS [facility] [id number] 07:51:00 Test Item Value Reference Range Interpretation Comments Antibody Scrn (test Negative (09/04/14 1:51 code = Antibody Scrn) AM) [facility] [id number] 07:51:00 Test Item Value Reference Range Interpretation Comments Albumin Lvl (test code = Albumin Lvl) 3.4 3.5-5.0 [facility] VIVA [id number] 07:51:00 Test Item Value Reference Range Interpretation Comments Alk Phos (test code = Alk Phos) 64 39-136 [facility] VIVA [id number] 07:51:00 Test Item Value Reference Range Interpretation Comments ALT (test code = ALT) 18 See_Comment [Auto mated message] The system which ge nerated this result transmit gaye reference range : <=65. The reference range was not used to interpr et this result as satish l/abnormal. [facility] [id number] 07:51:00 Test Item Value Reference Range Interpretation Comments AST (test code = AST) 12 See_Comment [Auto mated message] The system which ge nerated this result transmit gaye reference range : <=37. The reference range was not used to interpr et this result as satish l/abnormal. [facility] [id number] 07:51:00 Test Item Value Reference Range Interpretation Comments eGFR (test code = eGFR) 93 [facility] [id number] 07:51:00 Test Item Value Reference Range Interpretation Comments Bili Total (test code = Bili Total) 0.3 0.2-1.3 [facility] VIVA [id number] 07:51:00 Test Item Value Reference Range Interpretation Comments Chloride Lvl (test code = Chloride Lvl) 108 95-109 [facility] [id number] 07:51:00 Test Item Value Reference Range Interpretation Comments Sodium Lvl (test code = Sodium Lvl) 138 135-145 [facility] [id number] 07:51:00 Test Item Value Reference Range Interpretation [...] A/G Ratio) 0.9 0.7-1.6 [facility]zpNHMFJVBSHRYER5041-37-20 07:51:00 Test Item Value Reference Range Interpretation Comments hCG Tot (test code = hCG Tot) no gt [facility] HospitalSveheoyRYIKXVXNXE9582-51-89 07:51:00 Test Item Value Reference Range Interpretation Comments MCHC (test code = MCHC) 33.8 32.0-36.0 [facility] HospitalAeocnumTKDQCMFXHO7713-45-55 07:51:00 Test Item Value Reference Range Interpretation Comments MCH (test code = MCH) 30.3 pg 27.0-31.0 [facility] HospitalNhrapbfEMHHADFZEZ9033-71-67 07:51:00 Test Item Value Reference Range Interpretation Comments RDW (test code = RDW) 13.0 11.5-14.5 [facility] HospitalWwogcddCVUMDUTHUW3419-05-58 07:51:00 Test Item Value Reference Range Interpretation Comments MPV (test code = MPV) 8.4 7.4-10.4 [facility] HospitalEraldemUFQNXXSKMH7727-85-78 07:51:00 Test Item Value Reference Range Interpretation Comments Platelet (test code = Platelet) 356 133-450 [facility] HospitalGbyuuvkAXNPAYDNMR6033-08-95 07:51:00 Test Item Value Reference Range Interpretation Comments RBC (test code = RBC) 4.45 4.20-5.40 [facility] HospitalKfdwkwdPMXYCXGNCS9142-61-49 07:51:00 Test Item Value Reference Range Interpretation Comments WBC (test code = WBC) 12.9 3.7-10.4 [facility] HospitalUugqwoyZFWQTFOEEP3549-29-81 07:51:00 Test Item Value Reference Range Interpretation Comments Hgb (test code = Hgb) 13.5 12.0-16.0 [facility] HospitalOdjahdqTZKVJMHLZU2231-78-29 07:51:00 Test Item Value Reference Range Interpretation Comments MCV (test code = MCV) 89.7 80.0-98.0 [facility] HospitalLzimydxCGQCWQVWUO0300-93-02 07:51:00 Test Item Value Reference Range Interpretation Comments Hct (test code = Hct) 39.9 36.0-48.0 [facility] HospitalRhyyibhRDVCBLFDJF0025-87-31 07:51:00 Test Item Value Reference Range Interpretation Comments Eosinophils # (test code 0.3 See_Comment [A utomated message] The = Eosinophils #) system whic h generated this result tra nsmitted reference range : <=0.5. The reference r ozzy was not used to int erpret this result as normal/abnormal . [facility] HospitalJnfadpeFNSNODXGHT9769-06-77 07:51:00 Test Item Value Reference Range Interpretation Comments Lymphocytes # (test code = Lymphocytes 3.6 1.0-5.5 #) [facility] HospitalRpjxrzzJLUJWFNUIB2835-21-74 07:51:00 Test Item Value Reference Range Interpretation Comments Monocytes # (test code 0.7 See_Comment [Aut omated message] The = Monocytes #) system which generated this result tra nsmitted reference range : <=0.8. The reference r ozzy was not used to int erpret this result as normal/abnormal . [facility] HospitalArsamjoZTTBNAVQBA6273-44-25 07:51:00 Test Item Value Reference Range Interpretation Comments Segs (test code = Segs) 63.9 45.0-75.0 [facility] HospitalIsxucuhCFXUOLMGOY2753-56-79 07:51:00 Test Item Value Reference Range Interpretation Comments Segs-Bands # (test code = Segs-Bands #) 8.2 1.5-8.1 [facility] HospitalKchpjbiQOFCPIFHRE4927-78-29 07:51:00 Test Item Value Reference Range Interpretation Comments Basophils (test code = 0.7 See_Comment [Aut omated message] The Basophils) system which ge nerated this result tra nsmitted reference range : <=1.0. The reference r ozzy was not used to int erpret this result as normal/abnormal . [facility] HospitalNvryaomSVIFOIPIRF7706-93-42 07:51:00 Test Item Value Reference Range Interpretation Comments Monocytes (test code = Monocytes) 5.4 2.0-12.0 [facility] HospitalBuuxpiyMZTMIDYTLR9243-84-36 07:51:00 Test Item Value Reference Range Interpretation Comments Eosinophils (test code = 2.3 See_Comment [A utomated message] The Eosinophils) system which ge nerated this result tra nsmitted reference range : <=4.0. The reference r ozzy was not used to int erpret this result as normal/abnormal . [facility] HospitalBwkijpzCNCPTHNJHI2835-47-05 07:51:00 Test Item Value Reference Range Interpretation Comments Lymphocytes (test code = Lymphocytes) 27.7 20.0-40.0 [facility] H[id number] 07:51:00 Test Item Value Reference Range Interpretation Comments Basophils # (test code 0.1 See_Comment [Aut omated message] The = Basophils #) system which generated this result tra nsmitted reference range : <=0.2. The reference r ozzy was not used to int erpret this result as normal/abnormal . [facility]2015-01-23 07:51:00 Test Item Value Reference Range Interpretation Comments UA Urobilinogen (test code = UA 1.0 0.1-1.0 Urobilinogen) [facility] AND [id number] 07:51:00 Test Item Value Reference Range Interpretation Comments UA Turbidity (test code Cloudy *ABN*(09/04/14 = UA Turbidity) 1:51 AM) [facility] AND [id number] 07:51:00 Test Item Value Reference Range Interpretation Comments UA Color (test code = Red *ABN*(09/04/14 1:51 UA Color) AM) [facility] AND [id number] 07:51:00 Test Item Value Reference Range Interpretation Comments UA Ketones (test code Negative *NA*(09/04/14 = UA Ketones) 1:51 AM) [facility] AND [id number] 07:51:00 Test Item Value Reference Range Interpretation Comments UA Glucose (test code Negative (09/04/14 1:51 = UA Glucose) AM) [facility] AND [id number] 07:51:00 Test Item Value Reference Range Interpretation Comments UA Protein (test code = Trace *ABN*(09/04/14 UA Protein) 1:51 AM) [facility] AND [id number] 07:51:00 Test Item Value Reference Range Interpretation Comments UA pH (test code = UA pH) 8.0 1 5.0-8.0 [facility] AND [id number] 07:51:00 Test Item Value Reference Range Interpretation Comments UA Spec Grav (test code = UA Spec 1.015 1 Grav) [facility] AND [id number] 07:51:00 Test Item Value Reference Range Interpretation Comments UA Bili (test code = Negative *NA*(09/04/14 UA Bili) 1:51 AM) [facility] AND [id number] 07:51:00 Test Item Value Reference Range Interpretation Comments UA Blood (test code = Large *ABN*(09/04/14 UA Blood) 1:51 AM) [facility] AND [id number] 07:51:00 Test Item Value Reference Range Interpretation Comments UA Leuk Est (test Negative (09/04/14 1:51 code = UA Leuk Est) AM) [facility] AND [id number] 07:51:00 Test Item Value Reference Range Interpretation Comments UA Nitrite (test code Negative (09/04/14 1:51 = UA Nitrite) AM) [facility] AND [id number] 07:51:00 Test Item Value Reference Range Interpretation Comments UA Amorph Joselin (test code = UA Few /HPF Amorph Joselin) [facility] AND [id number] 07:51:00 Test Item Value Reference Range Interpretation Comments UA RBC (test code 51-100 /HPF See_Comment [Automate d message] The = UA RBC) system which ge nerated this result tra nsmitted reference range : <=2. The reference r ozzy was not used to int erpret this result as normal/abnormal . [facility] AND [id number] 07:51:00 Test Item Value Reference Range Interpretation Comments UA WBC (test code = UA WBC) 6-10 /HPF [facility] AND [id number] 07:51:00 Test Item Value Reference Range Interpretation Comments UA Bacteria (test code = UA Few /HPF Bacteria) [facility] AND [id number] 07:51:00 Test Item Value Reference Range Interpretation Comments UA Sq Epi (test code = UA Sq Occasional /LPF Epi) [facility] [employer] [id number] 07:51:00 Test Item Value Reference Range Interpretation Comments ABO/Rh (test code = ABO/Rh) A POS [facility] [employer] [id number] 07:51:00 Test Item Value Reference Range Interpretation Comments Antibody Scrn (test Negative (09/04/14 1:51 code = Antibody Scrn) AM) [facility] VIVA [id number] 07:51:00 Test Item Value Reference Range Interpretation Comments Albumin Lvl (test code = Albumin Lvl) 3.4 3.5-5.0 [facility] VIVA [id number] 07:51:00 Test Item Value Reference Range Interpretation Comments Alk Phos (test code = Alk Phos) 64 39-136 [facility] VIVA [id number] 07:51:00 Test Item Value Reference Range Interpretation [...] (test code = A/G Ratio) 0.9 0.7-1.6 [facility]NfnladfYMWZBSYFSEMSS4693-06-06 07:51:00 Test Item Value Reference Range Interpretation Comments hCG Tot (test code = hCG Tot) no gt [facility] HospitalIndeyzkSAYKRAGBBN5720-97-07 07:51:00 Test Item Value Reference Range Interpretation Comments MCHC (test code = MCHC) 33.8 32.0-36.0 [facility] HospitalEzyldceFQTDCJKUNA7510-54-47 07:51:00 Test Item Value Reference Range Interpretation Comments MCH (test code = MCH) 30.3 pg 27.0-31.0 [facility] HospitalIlrnwmnURKVTXHBRO2828-59-46 07:51:00 Test Item Value Reference Range Interpretation Comments RDW (test code = RDW) 13.0 11.5-14.5 [facility] HospitalCjsyummTGRUOMRSNX8663-14-57 07:51:00 Test Item Value Reference Range Interpretation Comments MPV (test code = MPV) 8.4 7.4-10.4 [facility] HospitalXyjjaoqMFAGGRFHPB1369-02-53 07:51:00 Test Item Value Reference Range Interpretation Comments Platelet (test code = Platelet) 356 133-450 [facility] HospitalQyyskprTTHXDIFQXT6954-41-95 07:51:00 Test Item Value Reference Range Interpretation Comments RBC (test code = RBC) 4.45 4.20-5.40 [facility] HospitalIcmnmeoUJFFTJMJTY0780-10-49 07:51:00 Test Item Value Reference Range Interpretation Comments WBC (test code = WBC) 12.9 3.7-10.4 [facility] HospitalEctjmykCNAVCWZXMJ3351-25-51 07:51:00 Test Item Value Reference Range Interpretation Comments Hgb (test code = Hgb) 13.5 12.0-16.0 [facility] HospitalCvfyokqHMEZQIAKNR4052-18-50 07:51:00 Test Item Value Reference Range Interpretation Comments MCV (test code = MCV) 89.7 80.0-98.0 [facility] HospitalNwdhhgjAWKMEUQWPA3690-67-02 07:51:00 Test Item Value Reference Range Interpretation Comments Hct (test code = Hct) 39.9 36.0-48.0 [facility] HospitalXmxjveqNFAYGUNDQC1468-48-32 07:51:00 Test Item Value Reference Range Interpretation Comments Eosinophils # (test code 0.3 See_Comment [A utomated message] The = Eosinophils #) system whic h generated this result tra nsmitted reference range : <=0.5. The reference r ozzy was not used to int erpret this result as normal/abnormal . [facility] HospitalFilvsrtKVDYAUCWGH9144-46-37 07:51:00 Test Item Value Reference Range Interpretation Comments Lymphocytes # (test code = Lymphocytes 3.6 1.0-5.5 #) [facility] HospitalQjiboodXJBGNDGCPU3499-36-34 07:51:00 Test Item Value Reference Range Interpretation Comments Monocytes # (test code 0.7 See_Comment [Aut omated message] The = Monocytes #) system which generated this result tra nsmitted reference range : <=0.8. The reference r ozzy was not used to int erpret this result as normal/abnormal . [facility] HospitalVksoadzNCJWQPCGTT1830-27-48 07:51:00 Test Item Value Reference Range Interpretation Comments Segs (test code = Segs) 63.9 45.0-75.0 [facility] HospitalCtlwvvxSYOFHUPUDJ0872-50-58 07:51:00 Test Item Value Reference Range Interpretation Comments Segs-Bands # (test code = Segs-Bands #) 8.2 1.5-8.1 [facility] HospitalVnkhygoEJPOOFWRKD0850-71-59 07:51:00 Test Item Value Reference Range Interpretation Comments Basophils (test code = 0.7 See_Comment [Aut omated message] The Basophils) system which ge nerated this result tra nsmitted reference range : <=1.0. The reference r ozzy was not used to int erpret this result as normal/abnormal . [facility] HospitalMvyotkaSSZCXHCATZ1801-79-54 07:51:00 Test Item Value Reference Range Interpretation Comments Monocytes (test code = Monocytes) 5.4 2.0-12.0 [facility] HospitalCqebblaYGEWXXOJWI8626-74-30 07:51:00 Test Item Value Reference Range Interpretation Comments Eosinophils (test code = 2.3 See_Comment [A utomated message] The Eosinophils) system which ge nerated this result tra nsmitted reference range : <=4.0. The reference r ozzy was not used to int erpret this result as normal/abnormal . [facility] HospitalPjxwuvjXPMXHQUIWD0367-34-57 07:51:00 Test Item Value Reference Range Interpretation Comments Lymphocytes (test code = Lymphocytes) 27.7 20.0-40.0 [facility] HospitalPiqbprkNRSFLDBNXD6575-25-82 07:51:00 Test Item Value Reference Range Interpretation Comments Basophils # (test code 0.1 See_Comment [Aut omated message] The = Basophils #) system which generated this result tra nsmitted reference range : <=0.2. The reference r ozzy was not used to int erpret this result as normal/abnormal . [facility] AND [id number] 07:51:00 Test Item Value Reference Range Interpretation Comments UA Urobilinogen (test code = UA 1.0 0.1-1.0 Urobilinogen) [facility] AND [id number] 07:51:00 Test Item Value Reference Range Interpretation Comments UA Turbidity (test code Cloudy *ABN*(09/04/14 = UA Turbidity) 1:51 AM) [facility] AND [id number] 07:51:00 Test Item Value Reference Range Interpretation Comments UA Color (test code = Red *ABN*(09/04/14 1:51 UA Color) AM) [facility] AND [id number] 07:51:00 Test Item Value Reference Range Interpretation Comments UA Ketones (test code Negative *NA*(09/04/14 = UA Ketones) 1:51 AM) [facility] AND [id number] 07:51:00 Test Item Value Reference Range Interpretation Comments UA Glucose (test code Negative (09/04/14 1:51 = UA Glucose) AM) [facility] AND [id number] 07:51:00 Test Item Value Reference Range Interpretation Comments UA Protein (test code = Trace *ABN*(09/04/14 UA Protein) 1:51 AM) [facility] AND [id number] 07:51:00 Test Item Value Reference Range Interpretation Comments UA pH (test code = UA pH) 8.0 1 5.0-8.0 [facility] AND [id number] 07:51:00 Test Item Value Reference Range Interpretation Comments UA Spec Grav (test code = UA Spec 1.015 1 Grav) [facility] AND [id number] 07:51:00 Test Item Value Reference Range Interpretation Comments UA Bili (test code = Negative *NA*(09/04/14 UA Bili) 1:51 AM) [facility] AND [id number] 07:51:00 Test Item Value Reference Range Interpretation Comments UA Blood (test code = Large *ABN*(09/04/14 UA Blood) 1:51 AM) [facility] AND [id number] 07:51:00 Test Item Value Reference Range Interpretation Comments UA Leuk Est (test Negative (09/04/14 1:51 code = UA Leuk Est) AM) [facility] AND [id number] 07:51:00 Test Item Value Reference Range Interpretation Comments UA Nitrite (test code Negative (09/04/14 1:51 = UA Nitrite) AM) [facility] AND [id number] 07:51:00 Test Item Value Reference Range Interpretation Comments UA Amorph Joselin (test code = UA Few /HPF Amorph Joselin) [facility] AND [id number] 07:51:00 Test Item Value Reference Range Interpretation Comments UA RBC (test code 51-100 /HPF See_Comment [Automate d message] The = UA RBC) system which ge nerated this result tra nsmitted reference range : <=2. The reference r ozzy was not used to int erpret this result as normal/abnormal . [facility] AND [id number] 07:51:00 Test Item Value Reference Range Interpretation Comments UA WBC (test code = UA WBC) 6-10 /HPF [facility] AND [id number] 07:51:00 Test Item Value Reference Range Interpretation Comments UA Bacteria (test code = UA Few /HPF Bacteria) [facility] AND [id number] 07:51:00 Test Item Value Reference Range Interpretation Comments UA Sq Epi (test code = UA Sq Occasional /LPF Epi) [facility] [id number] 07:51:00 Test Item Value Reference Range Interpretation Comments ABO/Rh (test code = ABO/Rh) A POS [facility] [id number] 07:51:00 Test Item Value Reference Range Interpretation Comments Antibody Scrn (test Negative (09/04/14 1:51 code = Antibody Scrn) AM) [facility] [id number] 07:51:00 Test Item Value Reference Range Interpretation Comments Albumin Lvl (test code = Albumin Lvl) 3.4 3.5-5.0 [facility] [id number] 07:51:00 Test Item Value Reference Range Interpretation Comments Alk Phos (test code = Alk Phos) 64 39-136 [facility] [id number] 07:51:00 Test Item Value Reference Range Interpretation Comments ALT (test code = ALT) 18 See_Comment [Auto mated message] The system which ge nerated this result transmit gaye reference range : <=65. The reference range was not used to interpr et this result as satish l/abnormal. [facility] [id number] 07:51:00 Test Item Value Reference Range Interpretation Comments AST (test code = AST) 12 See_Comment [Auto mated message] The system which ge nerated this result transmit gaye reference range : <=37. The reference range was not used to interpr et this result as satish l/abnormal. [facility] [id number] 07:51:00 Test Item Value Reference Range Interpretation Comments eGFR (test code = eGFR) 93 [facility] [id number] 07:51:00 Test Item Value Reference Range Interpretation Comments Bili Total (test code = Bili Total) 0.3 0.2-1.3 [facility] [id number] 07:51:00 Test Item Value Reference Range Interpretation Comments Chloride Lvl (test code = Chloride Lvl) 108 95-109 [facility] [id number] 07:51:00 Test Item Value Reference Range Interpretation [...] A/G Ratio) 0.9 0.7-1.6 [facility]PGJASVZRHVSLE6023-79-18 07:51:00 Test Item Value Reference Range Interpretation Comments hCG Tot (test code = hCG Tot) no gt [facility]HgjpchbMVTZBMFSGY8571-11-97 07:51:00 Test Item Value Reference Range Interpretation Comments MCHC (test code = MCHC) 33.8 32.0-36.0 [facility] HospitalLivkmakDCPLUZHZAA7149-44-92 07:51:00 Test Item Value Reference Range Interpretation Comments MCH (test code = MCH) 30.3 pg 27.0-31.0 [facility] HospitalYezjfohSNIUAIUUNS7063-00-06 07:51:00 Test Item Value Reference Range Interpretation Comments RDW (test code = RDW) 13.0 11.5-14.5 [facility] HospitalNjktepkVKAYLMXZGA6834-77-26 07:51:00 Test Item Value Reference Range Interpretation Comments MPV (test code = MPV) 8.4 7.4-10.4 [facility] HospitalMzjcpqxGZBDZSEZXW9355-25-73 07:51:00 Test Item Value Reference Range Interpretation Comments Platelet (test code = Platelet) 356 133-450 [facility] HospitalZscdmsiVVXGSYDOFR1111-74-62 07:51:00 Test Item Value Reference Range Interpretation Comments RBC (test code = RBC) 4.45 4.20-5.40 [facility] HospitalTnkcuteIXZZYNBOKB2213-72-49 07:51:00 Test Item Value Reference Range Interpretation Comments WBC (test code = WBC) 12.9 3.7-10.4 [facility] HospitalMejfphuSEZKPIQTPU4025-13-79 07:51:00 Test Item Value Reference Range Interpretation Comments Hgb (test code = Hgb) 13.5 12.0-16.0 [facility] HospitalUxzwhcxHPKLAYIGOX7859-76-94 07:51:00 Test Item Value Reference Range Interpretation Comments MCV (test code = MCV) 89.7 80.0-98.0 [facility] HospitalLretimqWJVDPDXXCR6459-67-99 07:51:00 Test Item Value Reference Range Interpretation Comments Hct (test code = Hct) 39.9 36.0-48.0 [facility] HospitalEjxiulzYCMTITMPMK2769-04-24 07:51:00 Test Item Value Reference Range Interpretation Comments Eosinophils # (test code 0.3 See_Comment [A utomated message] The = Eosinophils #) system whic h generated this result tra nsmitted reference range : <=0.5. The reference r ozzy was not used to int erpret this result as normal/abnormal . [facility] HospitalEliaquyAYDMRTDULR9710-52-81 07:51:00 Test Item Value Reference Range Interpretation Comments Lymphocytes # (test code = Lymphocytes 3.6 1.0-5.5 #) [facility] HospitalMnsshfkNTBJNPSGOX3624-48-05 07:51:00 Test Item Value Reference Range Interpretation Comments Monocytes # (test code 0.7 See_Comment [Aut omated message] The = Monocytes #) system which generated this result tra nsmitted reference range : <=0.8. The reference r ozzy was not used to int erpret this result as normal/abnormal . [facility] HospitalUtcihltWDJLHBOHTA5384-36-89 07:51:00 Test Item Value Reference Range Interpretation Comments Segs (test code = Segs) 63.9 45.0-75.0 [facility] HospitalRujgcegDWCQTBWAWL4789-84-83 07:51:00 Test Item Value Reference Range Interpretation Comments Segs-Bands # (test code = Segs-Bands #) 8.2 1.5-8.1 [place] [id number] 07:51:00 Test Item Value Reference Range Interpretation Comments Basophils (test code = 0.7 See_Comment [Aut omated message] The Basophils) system which ge nerated this result tra nsmitted reference range : <=1.0. The reference r ozzy was not used to int erpret this result as normal/abnormal . [facility] HospitalInaihywMMHECLLXUM5797-25-19 07:51:00 Test Item Value Reference Range Interpretation Comments Monocytes (test code = Monocytes) 5.4 2.0-12.0 [facility] HospitalJrwwpuyJYSVJTHTAL8783-22-13 07:51:00 Test Item Value Reference Range Interpretation Comments Eosinophils (test code = 2.3 See_Comment [A utomated message] The Eosinophils) system which ge nerated this result tra nsmitted reference range : <=4.0. The reference r ozzy was not used to int erpret this result as normal/abnormal . [facility] HospitalTmhwmetFORHHJUUWP8836-78-98 07:51:00 Test Item Value Reference Range Interpretation Comments Lymphocytes (test code = Lymphocytes) 27.7 20.0-40.0 [facility] HospitalGldysmgHPLMVWAGCP9300-84-57 07:51:00 Test Item Value Reference Range Interpretation Comments Basophils # (test code 0.1 See_Comment [Aut omated message] The = Basophils #) system which generated this result tra nsmitted reference range : <=0.2. The reference r ozzy was not used to int erpret this result as normal/abnormal . [facility] AND [id number] 07:51:00 Test Item Value Reference Range Interpretation Comments UA Urobilinogen (test code = UA 1.0 0.1-1.0 Urobilinogen) [facility] AND [id number] 07:51:00 Test Item Value Reference Range Interpretation Comments UA Turbidity (test code Cloudy *ABN*(09/04/14 = UA Turbidity) 1:51 AM) [facility] AND [id number] 07:51:00 Test Item Value Reference Range Interpretation Comments UA Color (test code = Red *ABN*(09/04/14 1:51 UA Color) AM) [facility] AND [id number] 07:51:00 Test Item Value Reference Range Interpretation Comments UA Ketones (test code Negative *NA*(09/04/14 = UA Ketones) 1:51 AM) [facility] AND [id number] 07:51:00 Test Item Value Reference Range Interpretation Comments UA Glucose (test code Negative (09/04/14 1:51 = UA Glucose) AM) [facility] AND [id number] 07:51:00 Test Item Value Reference Range Interpretation Comments UA Protein (test code = Trace *ABN*(09/04/14 UA Protein) 1:51 AM) [facility] AND [id number] 07:51:00 Test Item Value Reference Range Interpretation Comments UA pH (test code = UA pH) 8.0 1 5.0-8.0 [facility] AND [id number] 07:51:00 Test Item Value Reference Range Interpretation Comments UA Spec Grav (test code = UA Spec 1.015 1 Grav) [facility] AND [id number] 07:51:00 Test Item Value Reference Range Interpretation Comments UA Bili (test code = Negative *NA*(09/04/14 UA Bili) 1:51 AM) [facility] AND [id number] 07:51:00 Test Item Value Reference Range Interpretation Comments UA Blood (test code = Large *ABN*(09/04/14 UA Blood) 1:51 AM) [facility] AND [id number] 07:51:00 Test Item Value Reference Range Interpretation Comments UA Leuk Est (test Negative (09/04/14 1:51 code = UA Leuk Est) AM) [facility] AND [id number] 07:51:00 Test Item Value Reference Range Interpretation Comments UA Nitrite (test code Negative (09/04/14 1:51 = UA Nitrite) AM) [facility] AND [id number] 07:51:00 Test Item Value Reference Range Interpretation Comments UA Amorph Joselin (test code = UA Few /HPF Amorph Joselin) [facility] AND [id number] 07:51:00 Test Item Value Reference Range Interpretation Comments UA RBC (test code 51-100 /HPF See_Comment [Automate d message] The = UA RBC) system which ge nerated this result tra nsmitted reference range : <=2. The reference r ozzy was not used to int erpret this result as normal/abnormal . [facility] AND [id number] 07:51:00 Test Item Value Reference Range Interpretation Comments UA WBC (test code = UA WBC) 6-10 /HPF [facility] AND [id number] 07:51:00 Test Item Value Reference Range Interpretation Comments UA Bacteria (test code = UA Few /HPF Bacteria) [facility] AND [id number] 07:51:00 Test Item Value Reference Range Interpretation Comments UA Sq Epi (test code = UA Sq Occasional /LPF Epi) [facility] [id number] 07:51:00 Test Item Value Reference Range Interpretation Comments ABO/Rh (test code = ABO/Rh) A POS [facility] [id number] 07:51:00 Test Item Value Reference Range Interpretation Comments Antibody Scrn (test Negative (09/04/14 1:51 code = Antibody Scrn) AM) [facility] [id number] 07:51:00 Test Item Value Reference Range Interpretation Comments Albumin Lvl (test code = Albumin Lvl) 3.4 3.5-5.0 [facility] [id number] 07:51:00 Test Item Value Reference Range Interpretation [...] interpr et this result as satish l/abnormal. [place] [id number] 07:51:00 Test Item Value Reference Range Interpretation Comments eGFR (test code = eGFR) 93 [facility]2015-01-23 07:51:00 Test Item Value Reference Range Interpretation Comments Bili Total (test code = Bili Total) 0.3 0.2-1.3 [place] [id number] 07:51:00 Test Item Value Reference Range Interpretation [...] CO2 (test code = CO2) 22 24-32 [place] [id number] 07:51:00 Test Item Value Reference Range Interpretation [...] BUN (test code = BUN) 12 7- [facility]2015-01-23 07:51:00 Test [...] (test code = A/G Ratio) 0.9 0.7-1.6 [facility]ZCQTHAHBZEBKL7093-36-71 07:51:00 Test Item Value Reference Range Interpretation Comments hCG Tot (test code = hCG Tot) no gt [facility] HospitalVtpvpjwZZSTKDOOFT7439-49-60 07:51:00 Test Item Value Reference Range Interpretation Comments MCHC (test code = MCHC) 33.8 32.0-36.0 [facility] HospitalLabmzmuMHZBYRFFBZ3228-21-74 07:51:00 Test Item Value Reference Range Interpretation Comments MCH (test code = MCH) 30.3 pg 27.0-31.0 [facility] HospitalKxvdxqyIMCYXNSRXZ1878-12-35 07:51:00 Test Item Value Reference Range Interpretation Comments RDW (test code = RDW) 13.0 11.5-14.5 [facility] HospitalJvwnrskBWHUWPSFTT1272-86-73 07:51:00 Test Item Value Reference Range Interpretation Comments MPV (test code = MPV) 8.4 7.4-10.4 [facility] HospitalRdcudeuACLLJRBSVR5488-00-73 07:51:00 Test Item Value Reference Range Interpretation Comments Platelet (test code = Platelet) 356 133-450 [facility] HospitalYyksmjjVRWFQYNUSE2264-14-38 07:51:00 Test Item Value Reference Range Interpretation Comments RBC (test code = RBC) 4.45 4.20-5.40 [facility] HospitalFfykydiRXVWIGQRJC9583-70-44 07:51:00 Test Item Value Reference Range Interpretation Comments WBC (test code = WBC) 12.9 3.7-10.4 [facility] HospitalFqmtsmyXMPGKCRGAE0309-90-47 07:51:00 Test Item Value Reference Range Interpretation Comments Hgb (test code = Hgb) 13.5 12.0-16.0 [facility] HospitalGemvchgHDCTPDTEHR5035-01-32 07:51:00 Test Item Value Reference Range Interpretation Comments MCV (test code = MCV) 89.7 80.0-98.0 [facility] HospitalQxfcufqFTXJFTWCGC6450-32-21 07:51:00 Test Item Value Reference Range Interpretation Comments Hct (test code = Hct) 39.9 36.0-48.0 [facility] HospitalInzhtplSIYHUVOQPH7937-88-10 07:51:00 Test Item Value Reference Range Interpretation Comments Eosinophils # (test code 0.3 See_Comment [A utomated message] The = Eosinophils #) system ic h generated this result tra nsmitted reference range : <=0.5. The reference r ozzy was not used to int erpret this result as normal/abnormal . [facility] HospitalPetfqkrINSFOPEVTW7394-26-63 07:51:00 Test Item Value Reference Range Interpretation Comments Lymphocytes # (test code = Lymphocytes 3.6 1.0-5.5 #) [facility] HospitalHhdimdmPIBYVGQAHW3027-77-01 07:51:00 Test Item Value Reference Range Interpretation Comments Monocytes # (test code 0.7 See_Comment [Aut omated message] The = Monocytes #) system which generated this result tra nsmitted reference range : <=0.8. The reference r ozzy was not used to int erpret this result as normal/abnormal . [facility] HospitalDrqlwagKNCIJYSMTT0633-68-46 07:51:00 Test Item Value Reference Range Interpretation Comments Segs (test code = Segs) 63.9 45.0-75.0 [facility] HospitalHakmjfoUVJLSBIGEG9054-55-35 07:51:00 Test Item Value Reference Range Interpretation Comments Segs-Bands # (test code = Segs-Bands #) 8.2 1.5-8.1 [facility] HospitalTjqupygLVMGHQOAFE4651-97-86 07:51:00 Test Item Value Reference Range Interpretation Comments Basophils (test code = 0.7 See_Comment [Aut omated message] The Basophils) system which ge nerated this result tra nsmitted reference range : <=1.0. The reference r ozzy was not used to int erpret this result as normal/abnormal . [facility] HospitalOdjwzluONBNXZBPSM1828-95-94 07:51:00 Test Item Value Reference Range Interpretation Comments Monocytes (test code = Monocytes) 5.4 2.0-12.0 [facility] HospitalYobofbgNEPWMGHAHN4824-36-69 07:51:00 Test Item Value Reference Range Interpretation Comments Eosinophils (test code = 2.3 See_Comment [A utomated message] The Eosinophils) system which ge nerated this result tra nsmitted reference range : <=4.0. The reference r ozzy was not used to int erpret this result as normal/abnormal . [facility] HospitalUroohbkCWITEQXJGP8477-92-69 07:51:00 Test Item Value Reference Range Interpretation Comments Lymphocytes (test code = Lymphocytes) 27.7 20.0-40.0 [facility] HospitalIyebzdkLIRHQHQBYR9247-65-95 07:51:00 Test Item Value Reference Range Interpretation Comments Basophils # (test code 0.1 See_Comment [Aut omated message] The = Basophils #) system which generated this result tra nsmitted reference range : <=0.2. The reference r ozzy was not used to int erpret this result as normal/abnormal . [facility]2015-01-23 07:51:00 Test Item Value Reference Range Interpretation Comments UA Urobilinogen (test code = UA 1.0 0.1-1.0 Urobilinogen) [facility]2015-01-23 07:51:00 Test Item Value Reference Range Interpretation Comments UA Turbidity (test code Cloudy *ABN*(09/04/14 = UA Turbidity) 1:51 AM) [facility] AND [id number] 07:51:00 Test Item Value Reference Range Interpretation Comments UA Color (test code = Red *ABN*(09/04/14 1:51 UA Color) AM) [facility] AND [id number] 07:51:00 Test Item Value Reference Range Interpretation Comments UA Ketones (test code Negative *NA*(09/04/14 = UA Ketones) 1:51 AM) [facility] AND [id number] 07:51:00 Test Item Value Reference Range Interpretation Comments UA Glucose (test code Negative (09/04/14 1:51 = UA Glucose) AM) [facility] AND [id number] 07:51:00 Test Item Value Reference Range Interpretation Comments UA Protein (test code = Trace *ABN*(09/04/14 UA Protein) 1:51 AM) [facility] AND [id number] 07:51:00 Test Item Value Reference Range Interpretation Comments UA pH (test code = UA pH) 8.0 1 5.0-8.0 [facility] AND [id number] 07:51:00 Test Item Value Reference Range Interpretation Comments UA Spec Grav (test code = UA Spec 1.015 1 Grav) [facility] AND [id number] 07:51:00 Test Item Value Reference Range Interpretation Comments UA Bili (test code = Negative *NA*(09/04/14 UA Bili) 1:51 AM) [facility] AND [id number] 07:51:00 Test Item Value Reference Range Interpretation Comments UA Blood (test code = Large *ABN*(09/04/14 UA Blood) 1:51 AM) [facility] AND [id number] 07:51:00 Test Item Value Reference Range Interpretation Comments UA Leuk Est (test Negative (09/04/14 1:51 code = UA Leuk Est) AM) [facility] AND [id number] 07:51:00 Test Item Value Reference Range Interpretation Comments UA Nitrite (test code Negative (09/04/14 1:51 = UA Nitrite) AM) [facility] AND [id number] 07:51:00 Test Item Value Reference Range Interpretation Comments UA Amorph Joselin (test code = UA Few /HPF Amorph Joselin) [facility] AND [id number] 07:51:00 Test Item Value Reference Range Interpretation Comments UA RBC (test code 51-100 /HPF See_Comment [Automate d message] The = UA RBC) system which ge nerated this result tra nsmitted reference range : <=2. The reference r ozzy was not used to int erpret this result as normal/abnormal . [facility] [id number] 07:51:00 Test Item Value Reference Range Interpretation Comments UA WBC (test code = UA WBC) 6-10 /HPF [facility] AND [id number] 07:51:00 Test Item Value Reference Range Interpretation Comments UA Bacteria (test code = UA Few /HPF Bacteria) [facility] AND [id number] 07:51:00 Test Item Value Reference Range Interpretation Comments UA Sq Epi (test code = UA Sq Occasional /LPF Epi) [facility] [id number] 07:51:00 Test Item Value Reference Range Interpretation Comments ABO/Rh (test code = ABO/Rh) A POS [facility] [id number] 07:51:00 Test Item Value Reference Range Interpretation Comments Antibody Scrn (test Negative (09/04/14 1:51 code = Antibody Scrn) AM) [facility] [id number] 07:51:00 Test Item Value Reference Range Interpretation Comments Albumin Lvl (test code = Albumin Lvl) 3.4 3.5-5.0 [facility] [id number] 07:51:00 Test Item Value Reference Range Interpretation Comments Alk Phos (test code = Alk Phos) 64 39-136 [facility] [id number] 07:51:00 Test Item Value Reference Range Interpretation Comments ALT (test code = ALT) 18 See_Comment [Auto mated message] The system which ge nerated this result transmit gaye reference range : <=65. The reference range was not used to interpr et this result as satish l/abnormal. [facility] [employer]2015-01-23 07:51:00 Test Item Value Reference Range Interpretation Comments AST (test code = AST) 12 See_Comment [Auto mated message] The system which ge nerated this result transmit gaye reference range : <=37. The reference range was not used to interpr et this result as satish l/abnormal. [facility] [employer]2015-01-23 07:51:00 Test Item Value Reference Range Interpretation Comments eGFR (test code = eGFR) 93 [facility] [id number] 07:51:00 Test Item Value Reference Range Interpretation [...] Comments CO2 (test code = CO2) 22 -32 [facility]2015-01-23 07:51:00 Test [...] (test code = B/C Ratio) 15 6- [facility]2015-01-23 07:51:00 Test Item Value Reference Range Interpretation Comments Globulin (test code = Globulin) 3.9 2.0-4.0 [facility]2015-01-23 07:51:00 Test Item Value Reference Range Interpretation Comments A/G Ratio (test code = A/G Ratio) 0.9 0.7-1.6 [facility]RdquvgeEAKXWCJSDTMQV1458-56-25 07:51:00 Test Item Value Reference Range Interpretation Comments hCG Tot (test code = hCG Tot) no gt [facility] HospitalGhuouetONHXCZAGJJ2114-22-49 07:51:00 Test Item Value Reference Range Interpretation Comments MCHC (test code = MCHC) 33.8 32.0-36.0 [facility] HospitalDdgwfefZIIVFEGTMI4350-74-70 07:51:00 Test Item Value Reference Range Interpretation Comments MCH (test code = MCH) 30.3 pg 27.0-31.0 [facility] HospitalLbcpewoQYYKICZIZV6370-17-52 07:51:00 Test Item Value Reference Range Interpretation Comments RDW (test code = RDW) 13.0 11.5-14.5 [facility] HospitalAvunmmqQISNMXWZFF9947-44-35 07:51:00 Test Item Value Reference Range Interpretation Comments MPV (test code = MPV) 8.4 7.4-10.4 [facility] HospitalZtkaxgfFYKLECTNLB8132-28-59 07:51:00 Test Item Value Reference Range Interpretation Comments Platelet (test code = Platelet) 356 133-450 [facility] HospitalMzlcpenAPAZVUHTQU3895-52-79 07:51:00 Test Item Value Reference Range Interpretation Comments RBC (test code = RBC) 4.45 4.20-5.40 [facility] HospitalSjdxmcuYYZUPQFWAN9634-90-29 07:51:00 Test Item Value Reference Range Interpretation Comments WBC (test code = WBC) 12.9 3.7-10.4 [facility] HospitalLimxamyLLCYRPAZEH6840-55-05 07:51:00 Test Item Value Reference Range Interpretation Comments Hgb (test code = Hgb) 13.5 12.0-16.0 [facility] HospitalVitkwnnARCNNNMVLG0306-50-57 07:51:00 Test Item Value Reference Range Interpretation Comments MCV (test code = MCV) 89.7 80.0-98.0 [facility] HospitalYncleoyQPUXAKHSFJ2057-19-23 07:51:00 Test Item Value Reference Range Interpretation Comments Hct (test code = Hct) 39.9 36.0-48.0 [facility] HospitalMizlmwtSULFVQKMPM9989-41-36 07:51:00 Test Item Value Reference Range Interpretation Comments Eosinophils # (test code 0.3 See_Comment [A utomated message] The = Eosinophils #) system whic h generated this result tra nsmitted reference range : <=0.5. The reference r ozzy was not used to int erpret this result as normal/abnormal . [facility] HospitalRkhwemgVLVYATPMFG4194-30-64 07:51:00 Test Item Value Reference Range Interpretation Comments Lymphocytes # (test code = Lymphocytes 3.6 1.0-5.5 #) [facility] HospitalFttcugeRKVNMENDFM5135-55-77 07:51:00 Test Item Value Reference Range Interpretation Comments Monocytes # (test code 0.7 See_Comment [Aut omated message] The = Monocytes #) system which generated this result tra nsmitted reference range : <=0.8. The reference r ozzy was not used to int erpret this result as normal/abnormal . [facility] HospitalOgppsqmGQAGBEAMUB8886-16-30 07:51:00 Test Item Value Reference Range Interpretation Comments Segs (test code = Segs) 63.9 45.0-75.0 [facility] HospitalZuvwzwxHPTTSGXJQB6604-16-81 07:51:00 Test Item Value Reference Range Interpretation Comments Segs-Bands # (test code = Segs-Bands #) 8.2 1.5-8.1 [facility] HospitalBbuywyiPOPJJPLYKX7542-10-14 07:51:00 Test Item Value Reference Range Interpretation Comments Basophils (test code = 0.7 See_Comment [Aut omated message] The Basophils) system which ge nerated this result tra nsmitted reference range : <=1.0. The reference r ozzy was not used to int erpret this result as normal/abnormal . [facility] HospitalXgazbnaJRPVZMNYMG2522-66-25 07:51:00 Test Item Value Reference Range Interpretation Comments Monocytes (test code = Monocytes) 5.4 2.0-12.0 [facility] HospitalRgcpoiiTJVGIQPHCE7758-25-72 07:51:00 Test Item Value Reference Range Interpretation Comments Eosinophils (test code = 2.3 See_Comment [A utomated message] The Eosinophils) system which ge nerated this result tra nsmitted reference range : <=4.0. The reference r ozzy was not used to int erpret this result as normal/abnormal . [facility] H[id number] 07:51:00 Test Item Value Reference Range Interpretation Comments Lymphocytes (test code = Lymphocytes) 27.7 20.0-40.0 [facility] DallasDxbrglmCNHMTVTNGD1916-35-71 07:51:00 Test Item Value Reference Range Interpretation Comments Basophils # (test code 0.1 See_Comment [Aut omated message] The = Basophils #) system which generated this result tra nsmitted reference range : <=0.2. The reference r ozzy was not used to int erpret this result as normal/abnormal . [facility] AND [id number] 07:51:00 Test Item Value Reference Range Interpretation Comments UA Urobilinogen (test code = UA 1.0 0.1-1.0 Urobilinogen) [facility] AND [id number] 07:51:00 Test Item Value Reference Range Interpretation Comments UA Turbidity (test code Cloudy *ABN*(09/04/14 = UA Turbidity) 1:51 AM) [facility] AND [id number] 07:51:00 Test Item Value Reference Range Interpretation Comments UA Color (test code = Red *ABN*(09/04/14 1:51 UA Color) AM) [facility] AND [id number] 07:51:00 Test Item Value Reference Range Interpretation Comments UA Ketones (test code Negative *NA*(09/04/14 = UA Ketones) 1:51 AM) [facility] AND [id number] 07:51:00 Test Item Value Reference Range Interpretation Comments UA Glucose (test code Negative (09/04/14 1:51 = UA Glucose) AM) [facility] AND [id number] 07:51:00 Test Item Value Reference Range Interpretation Comments UA Protein (test code = Trace *ABN*(09/04/14 UA Protein) 1:51 AM) [facility] AND [id number] 07:51:00 Test Item Value Reference Range Interpretation Comments UA pH (test code = UA pH) 8.0 1 5.0-8.0 [facility] AND [id number] 07:51:00 Test Item Value Reference Range Interpretation Comments UA Spec Grav (test code = UA Spec 1.015 1 Grav) [facility] AND [id number] 07:51:00 Test Item Value Reference Range Interpretation Comments UA Bili (test code = Negative *NA*(09/04/14 UA Bili) 1:51 AM) [facility] AND [id number] 07:51:00 Test Item Value Reference Range Interpretation Comments UA Blood (test code = Large *ABN*(09/04/14 UA Blood) 1:51 AM) [facility] AND [id number] 07:51:00 Test Item Value Reference Range Interpretation Comments UA Leuk Est (test Negative (09/04/14 1:51 code = UA Leuk Est) AM) [facility] AND [id number] 07:51:00 Test Item Value Reference Range Interpretation Comments UA Nitrite (test code Negative (09/04/14 1:51 = UA Nitrite) AM) [facility] AND [id number] 07:51:00 Test Item Value Reference Range Interpretation Comments UA Amorph Joselin (test code = UA Few /HPF Amorph Joselin) [facility] AND [id number] 07:51:00 Test Item Value Reference Range Interpretation Comments UA RBC (test code 51-100 /HPF See_Comment [Automate d message] The = UA RBC) system which ge nerated this result tra nsmitted reference range : <=2. The reference r ozzy was not used to int erpret this result as normal/abnormal . [facility] AND [id number] 07:51:00 Test Item Value Reference Range Interpretation Comments UA WBC (test code = UA WBC) 6-10 /HPF [facility] AND [id number] 07:51:00 Test Item Value Reference Range Interpretation Comments UA Bacteria (test code = UA Few /HPF Bacteria) [facility] AND [id number] 07:51:00 Test Item Value Reference Range Interpretation Comments UA Sq Epi (test code = UA Sq Occasional /LPF Epi) [facility] [employer] [facility] [id number] 07:51:00 Test Item Value Reference Range Interpretation Comments ABO/Rh (test code = ABO/Rh) A POS [facility] [employer] [facility] [id number] 07:51:00 Test Item Value Reference Range Interpretation Comments Antibody Scrn (test Negative (09/04/14 1:51 code = Antibody Scrn) AM) [facility] [employer]CHE[employer] [id number] 07:51:00 Test Item Value Reference Range Interpretation [...] (test code = A/G Ratio) 0.9 0.7-1.6 [place] [id number] 07:51:00 Test Item Value Reference Range Interpretation Comments hCG Tot (test code = hCG Tot) no gt [facility] H[id number] 07:51:00 Test Item Value Reference Range Interpretation Comments MCHC (test code = MCHC) 33.8 32.0-36.0 [facility] HospitalTjhohxwRQVCULCPOU5451-50-58 07:51:00 Test Item Value Reference Range Interpretation Comments MCH (test code = MCH) 30.3 pg 27.0-31.0 [facility] HospitalAwwrwvcWDGMHOMEIZ4871-64-93 07:51:00 Test Item Value Reference Range Interpretation Comments RDW (test code = RDW) 13.0 11.5-14.5 [facility] Hos[id number] 07:51:00 Test Item Value Reference Range Interpretation Comments MPV (test code = MPV) 8.4 7.4-10.4 [place] [id number] 07:51:00 Test Item Value Reference Range Interpretation Comments Platelet (test code = Platelet) 356 133-450 [facility] HospitalOnfeigkKMRSOVYSFR1253-37-97 07:51:00 Test Item Value Reference Range Interpretation Comments RBC (test code = RBC) 4.45 4.20-5.40 [facility] HospitalYsvpriqZUFEJYKJSB1232-17-70 07:51:00 Test Item Value Reference Range Interpretation Comments WBC (test code = WBC) 12.9 3.7-10.4 [facility] HospitalNbzfbzxKYBXJNLCMD5885-23-47 07:51:00 Test Item Value Reference Range Interpretation Comments Hgb (test code = Hgb) 13.5 12.0-16.0 [facility] HospitalWhchtxvVRUJLYRMVL7008-85-06 07:51:00 Test Item Value Reference Range Interpretation Comments MCV (test code = MCV) 89.7 80.0-98.0 [facility] HospitalLzejygsENBQZSBVTD1815-65-30 07:51:00 Test Item Value Reference Range Interpretation Comments Hct (test code = Hct) 39.9 36.0-48.0 [facility] HospitalLkoptfuXYRVFBCTJS5798-96-26 07:51:00 Test Item Value Reference Range Interpretation Comments Eosinophils # (test code 0.3 See_Comment [A utomated message] The = Eosinophils #) system whic h generated this result tra nsmitted reference range : <=0.5. The reference r ozzy was not used to int erpret this result as normal/abnormal . [facility] HospitalKwfjcafGDZNENEBUJ4458-15-98 07:51:00 Test Item Value Reference Range Interpretation Comments Lymphocytes # (test code = Lymphocytes 3.6 1.0-5.5 #) [facility] Hos[id number] 07:51:00 Test Item Value Reference Range Interpretation Comments Monocytes # (test code 0.7 See_Comment [Aut omated message] The = Monocytes #) system which generated this result tra nsmitted reference range : <=0.8. The reference r ozzy was not used to int erpret this result as normal/abnormal . [facility] HospitalHreduofPRTHSLWYXV1415-25-15 07:51:00 Test Item Value Reference Range Interpretation Comments Segs (test code = Segs) 63.9 45.0-75.0 [facility] Hospit[id number] 07:51:00 Test Item Value Reference Range Interpretation Comments Segs-Bands # (test code = Segs-Bands #) 8.2 1.5-8.1 [facility] Ho[id number] 07:51:00 Test Item Value Reference Range Interpretation Comments Basophils (test code = 0.7 See_Comment [Aut omated message] The Basophils) system which ge nerated this result tra nsmitted reference range : <=1.0. The reference r ozzy was not used to int erpret this result as normal/abnormal . [facility] Hos[id number] 07:51:00 Test Item Value Reference Range Interpretation Comments Monocytes (test code = Monocytes) 5.4 2.0-12.0 [facility] HospitalJmwztbiVBPUYJOQMA2294-22-51 07:51:00 Test Item Value Reference Range Interpretation Comments Eosinophils (test code = 2.3 See_Comment [A utomated message] The Eosinophils) system which ge nerated this result tra nsmitted reference range : <=4.0. The reference r ozzy was not used to int erpret this result as normal/abnormal . [facility] HospitalEklbyszAWIWTCPZYA8153-24-08 07:51:00 Test Item Value Reference Range Interpretation Comments Lymphocytes (test code = Lymphocytes) 27.7 20.0-40.0 [facility] HospitalGndqqliJVOLBQUNLO9705-90-10 07:51:00 Test Item Value Reference Range Interpretation Comments Basophils # (test code 0.1 See_Comment [Aut omated message] The = Basophils #) system which generated this result tra nsmitted reference range : <=0.2. The reference r ozzy was not used to int erpret this result as normal/abnormal . [facility]2015-01-23 07:51:00 Test Item Value Reference Range Interpretation Comments UA Urobilinogen (test code = UA 1.0 0.1-1.0 Urobilinogen) [facility] AND [id number] 07:51:00 Test Item Value Reference Range Interpretation Comments UA Turbidity (test code Cloudy *ABN*(09/04/14 = UA Turbidity) 1:51 AM) [facility]2015-01-23 07:51:00 Test Item Value Reference Range Interpretation Comments UA Color (test code = Red *ABN*(09/04/14 1:51 UA Color) AM) [facility] AND [id number] 07:51:00 Test Item Value Reference Range Interpretation Comments UA Ketones (test code Negative *NA*(09/04/14 = UA Ketones) 1:51 AM) [facility] AND [id number] 07:51:00 Test Item Value Reference Range Interpretation Comments UA Glucose (test code Negative (09/04/14 1:51 = UA Glucose) AM) [facility] AND [id number] 07:51:00 Test Item Value Reference Range Interpretation Comments UA Protein (test code = Trace *ABN*(09/04/14 UA Protein) 1:51 AM) [facility] AND [id number] 07:51:00 Test Item Value Reference Range Interpretation Comments UA pH (test code = UA pH) 8.0 1 5.0-8.0 [facility] AND [id number] 07:51:00 Test Item Value Reference Range Interpretation Comments UA Spec Grav (test code = UA Spec 1.015 1 Grav) [facility] AND [id number] 07:51:00 Test Item Value Reference Range Interpretation Comments UA Bili (test code = Negative *NA*(09/04/14 UA Bili) 1:51 AM) [facility] AND [id number] 07:51:00 Test Item Value Reference Range Interpretation Comments UA Blood (test code = Large *ABN*(09/04/14 UA Blood) 1:51 AM) [facility] AND [id number] 07:51:00 Test Item Value Reference Range Interpretation Comments UA Leuk Est (test Negative (09/04/14 1:51 code = UA Leuk Est) AM) [facility] AND [id number] 07:51:00 Test Item Value Reference Range Interpretation Comments UA Nitrite (test code Negative (09/04/14 1:51 = UA Nitrite) AM) [facility] AND [id number] 07:51:00 Test Item Value Reference Range Interpretation Comments UA Amorph Joselin (test code = UA Few /HPF Amorph Joselin) [facility] AND [id number] 07:51:00 Test Item Value Reference Range Interpretation Comments UA RBC (test code 51-100 /HPF See_Comment [Automate d message] The = UA RBC) system which ge nerated this result tra nsmitted reference range : <=2. The reference r ozzy was not used to int erpret this result as normal/abnormal . [facility] [id number] 07:51:00 Test Item Value Reference Range Interpretation Comments UA WBC (test code = UA WBC) 6-10 /HPF [facility] AND [id number] 07:51:00 Test Item Value Reference Range Interpretation Comments UA Bacteria (test code = UA Few /HPF Bacteria) [facility] AND [id number] 07:51:00 Test Item Value Reference Range Interpretation Comments UA Sq Epi (test code = UA Sq Occasional /LPF Epi) [facility] [employer] [facility] [id number] 07:51:00 Test Item Value Reference Range Interpretation Comments ABO/Rh (test code = ABO/Rh) A POS [facility] [id number] 07:51:00 Test Item Value Reference Range Interpretation Comments Antibody Scrn (test Negative (09/04/14 1:51 code = Antibody Scrn) AM) [facility] VIVA [id number] 07:51:00 Test Item Value Reference Range Interpretation Comments Albumin Lvl (test code = Albumin Lvl) 3.4 3.5-5.0 [facility] V[facility] [id number] 07:51:00 Test Item Value Reference Range Interpretation Comments Alk Phos (test code = Alk Phos) 64 39-136 [facility] VIVA [id number] 07:51:00 Test Item Value Reference Range Interpretation Comments ALT (test code = ALT) 18 See_Comment [Auto mated message] The system which ge nerated this result transmit gaye reference range : <=65. The reference range was not used to interpr et this result as satish l/abnormal. AGELON ? [id number] 07:51:00 Test Item Value Reference Range Interpretation Comments AST (test code = AST) 12 See_Comment [Auto mated message] The system which ge nerated this result transmit gaye reference range : <=37. The reference range was not used to interpr et this result as satish l/abnormal. AGELON ? [id number] 07:51:00 Test Item Value Reference Range Interpretation [...] code = Globulin) 3.9 2.0-4.0 [facility] [id number] 07:51:00 Test Item Value Reference Range Interpretation Comments A/G Ratio (test code = A/G Ratio) 0.9 0.7-1.6 [facility]KojwwegDJAGQUZHRLBOF1911-31-21 07:51:00 Test Item Value Reference Range Interpretation Comments hCG Tot (test code = hCG Tot) no gt [facility] HospitalKjktqhlGTOHCVDMYB0957-91-81 07:51:00 Test Item Value Reference Range Interpretation Comments MCHC (test code = MCHC) 33.8 32.0-36.0 [facility] Hos[id number] 07:51:00 Test Item Value Reference Range Interpretation Comments MCH (test code = MCH) 30.3 pg 27.0-31.0 [facility] HospitalQlcunfkYGFNMJZMTJ6679-69-48 07:51:00 Test Item Value Reference Range Interpretation Comments RDW (test code = RDW) 13.0 11.5-14.5 [facility] HospitalXzvvqnzQRKIRCXBNN8444-12-43 07:51:00 Test Item Value Reference Range Interpretation Comments MPV (test code = MPV) 8.4 7.4-10.4 [facility] HospitalGtdhrhlCDPKHMASLR7868-32-28 07:51:00 Test Item Value Reference Range Interpretation Comments Platelet (test code = Platelet) 356 133-450 [facility] HospitalJnejxtsSEKBAAGNPC1537-84-16 07:51:00 Test Item Value Reference Range Interpretation Comments RBC (test code = RBC) 4.45 4.20-5.40 [facility] HospitalZywbhtvPDUGQAPRNP5528-60-65 07:51:00 Test Item Value Reference Range Interpretation Comments WBC (test code = WBC) 12.9 3.7-10.4 [facility] HospitalTiyfnpqBRNAFWYELU7326-28-77 07:51:00 Test Item Value Reference Range Interpretation Comments Hgb (test code = Hgb) 13.5 12.0-16.0 [facility] HospitalWckxmapFGLCFMHRMJ6693-74-18 07:51:00 Test Item Value Reference Range Interpretation Comments MCV (test code = MCV) 89.7 80.0-98.0 [facility] HospitalVoxlzvlYQAZVZNKLY7130-58-10 07:51:00 Test Item Value Reference Range Interpretation Comments Hct (test code = Hct) 39.9 36.0-48.0 [facility] HospitalEdudmhuXVMZEZEYPV0892-29-80 07:51:00 Test Item Value Reference Range Interpretation Comments Eosinophils # (test code 0.3 See_Comment [A utomated message] The = Eosinophils #) system whic h generated this result tra nsmitted reference range : <=0.5. The reference r ozzy was not used to int erpret this result as normal/abnormal . [facility] HospitalLzjcctkAXAKJHBBJG0650-43-46 07:51:00 Test Item Value Reference Range Interpretation Comments Lymphocytes # (test code = Lymphocytes 3.6 1.0-5.5 #) [facility] H[id number] 07:51:00 Test Item Value Reference Range Interpretation Comments Monocytes # (test code 0.7 See_Comment [Aut omated message] The = Monocytes #) system which generated this result tra nsmitted reference range : <=0.8. The reference r ozzy was not used to int erpret this result as normal/abnormal . [facility] HospitalCjzqgyoCCBFSHVSFJ9560-20-06 07:51:00 Test Item Value Reference Range Interpretation Comments Segs (test code = Segs) 63.9 45.0-75.0 [facility] HospitalLhdmtulTQSWBHBDLG3790-89-56 07:51:00 Test Item Value Reference Range Interpretation Comments Segs-Bands # (test code = Segs-Bands #) 8.2 1.5-8.1 [facility] HospitalWzhoprcBBULGQXNFM0715-49-51 07:51:00 Test Item Value Reference Range Interpretation Comments Basophils (test code = 0.7 See_Comment [Aut omated message] The Basophils) system which ge nerated this result tra nsmitted reference range : <=1.0. The reference r ozzy was not used to int erpret this result as normal/abnormal . [facility] HospitalSiojyhzFBGXNGGTUH6961-14-64 07:51:00 Test Item Value Reference Range Interpretation Comments Monocytes (test code = Monocytes) 5.4 2.0-12.0 [facility] HospitalVtppazpNHFLRZROZS3330-90-60 07:51:00 Test Item Value Reference Range Interpretation Comments Eosinophils (test code = 2.3 See_Comment [A utomated message] The Eosinophils) system which ge nerated this result tra nsmitted reference range : <=4.0. The reference r ozzy was not used to int erpret this result as normal/abnormal . [facility] Hos[id number] 07:51:00 Test Item Value Reference Range Interpretation Comments Lymphocytes (test code = Lymphocytes) 27.7 20.0-40.0 [facility] HospitalPydgeucHHCVVKPFYO4179-28-83 07:51:00 Test Item Value Reference Range Interpretation Comments Basophils # (test code 0.1 See_Comment [Aut omated message] The = Basophils #) system which generated this result tra nsmitted reference range : <=0.2. The reference r ozzy was not used to int erpret this result as normal/abnormal . [facility] AND [id number] 07:51:00 Test Item Value Reference Range Interpretation Comments UA Urobilinogen (test code = UA 1.0 0.1-1.0 Urobilinogen) [facility] AND [id number] 07:51:00 Test Item Value Reference Range Interpretation Comments UA Turbidity (test code Cloudy *ABN*(09/04/14 = UA Turbidity) 1:51 AM) [facility] AND [id number] 07:51:00 Test Item Value Reference Range Interpretation Comments UA Color (test code = Red *ABN*(09/04/14 1:51 UA Color) AM) [facility] AND [id number] 07:51:00 Test Item Value Reference Range Interpretation Comments UA Ketones (test code Negative *NA*(09/04/14 = UA Ketones) 1:51 AM) [facility] AND [id number] 07:51:00 Test Item Value Reference Range Interpretation Comments UA Glucose (test code Negative (09/04/14 1:51 = UA Glucose) AM) [facility] AND [id number] 07:51:00 Test Item Value Reference Range Interpretation Comments UA Protein (test code = Trace *ABN*(09/04/14 UA Protein) 1:51 AM) [facility] AND [id number] 07:51:00 Test Item Value Reference Range Interpretation Comments UA pH (test code = UA pH) 8.0 1 5.0-8.0 [facility] AND [id number] 07:51:00 Test Item Value Reference Range Interpretation Comments UA Spec Grav (test code = UA Spec 1.015 1 Grav) [facility] AND [id number] 07:51:00 Test Item Value Reference Range Interpretation Comments UA Bili (test code = Negative *NA*(09/04/14 UA Bili) 1:51 AM) [facility] AND [id number] 07:51:00 Test Item Value Reference Range Interpretation Comments UA Blood (test code = Large *ABN*(09/04/14 UA Blood) 1:51 AM) [facility] AND [id number] 07:51:00 Test Item Value Reference Range Interpretation Comments UA Leuk Est (test Negative (09/04/14 1:51 code = UA Leuk Est) AM) [facility] AND [id number] 07:51:00 Test Item Value Reference Range Interpretation Comments UA Nitrite (test code Negative (09/04/14 1:51 = UA Nitrite) AM) [facility] AND [id number] 07:51:00 Test Item Value Reference Range Interpretation Comments UA Amorph Joselin (test code = UA Few /HPF Amorph Joselin) [facility] AND [id number] 07:51:00 Test Item Value Reference Range Interpretation Comments UA RBC (test code 51-100 /HPF See_Comment [Automate d message] The = UA RBC) system which ge nerated this result tra nsmitted reference range : <=2. The reference r ozzy was not used to int erpret this result as normal/abnormal . [facility] AND [id number] 07:51:00 Test Item Value Reference Range Interpretation Comments UA WBC (test code = UA WBC) 6-10 /HPF [facility] AND [id number] 07:51:00 Test Item Value Reference Range Interpretation Comments UA Bacteria (test code = UA Few /HPF Bacteria) [facility] AND [id number] 07:51:00 Test Item Value Reference Range Interpretation Comments UA Sq Epi (test code = UA Sq Occasional /LPF Epi) [facility] [id number] 07:51:00 Test Item Value Reference Range Interpretation Comments ABO/Rh (test code = ABO/Rh) A POS [facility] [id number] 07:51:00 Test Item Value Reference Range Interpretation Comments Antibody Scrn (test Negative (09/04/14 1:51 code = Antibody Scrn) AM) [facility]2015-01-23 07:51:00 Test Item Value Reference Range Interpretation Comments Albumin Lvl (test code = Albumin Lvl) 3.4 3.5-5.0 [place] [id number] 07:51:00 Test Item Value Reference Range Interpretation [...] A/G Ratio) 0.9 0.7-1.6 [facility]ErlihhpJIKAIFEALOBZN7483-94-39 07:51:00 Test Item Value Reference Range Interpretation Comments hCG Tot (test code = hCG Tot) no gt [facility]TgwjsftPSHGUVZPHS2442-95-12 07:51:00 Test Item Value Reference Range Interpretation Comments MCHC (test code = MCHC) 33.8 32.0-36.0 [facility] HospitalSanthgpWGMUFVDAWG8219-33-71 07:51:00 Test Item Value Reference Range Interpretation Comments MCH (test code = MCH) 30.3 pg 27.0-31.0 [facility] HospitalSvnhhkaRJQVOZZCZE7830-04-97 07:51:00 Test Item Value Reference Range Interpretation Comments RDW (test code = RDW) 13.0 11.5-14.5 [facility] HospitalClhkpjtYWDQYBBPTB0654-70-12 07:51:00 Test Item Value Reference Range Interpretation Comments MPV (test code = MPV) 8.4 7.4-10.4 [facility] HospitalKrysxtcYPQTHSSHKL2976-09-69 07:51:00 Test Item Value Reference Range Interpretation Comments Platelet (test code = Platelet) 356 133-450 [facility] HospitalApccsbqWHUMZGETWN7383-90-30 07:51:00 Test Item Value Reference Range Interpretation Comments RBC (test code = RBC) 4.45 4.20-5.40 [facility] HospitalRjvwummAQXGKBUVOC4949-51-76 07:51:00 Test Item Value Reference Range Interpretation Comments WBC (test code = WBC) 12.9 3.7-10.4 [facility] HospitalGizotxrRJMETGTRCM0221-17-69 07:51:00 Test Item Value Reference Range Interpretation Comments Hgb (test code = Hgb) 13.5 12.0-16.0 [facility] HospitalWlbzuvsIJIAFOYAOG3896-91-99 07:51:00 Test Item Value Reference Range Interpretation Comments MCV (test code = MCV) 89.7 80.0-98.0 [facility] HospitalFhzjxtiPDNATJKKGE1307-67-82 07:51:00 Test Item Value Reference Range Interpretation Comments Hct (test code = Hct) 39.9 36.0-48.0 [facility] HospitalQioajecMNIQHZRKPS9754-98-68 07:51:00 Test Item Value Reference Range Interpretation Comments Eosinophils # (test code 0.3 See_Comment [A utomated message] The = Eosinophils #) system whic h generated this result tra nsmitted reference range : <=0.5. The reference r ozzy was not used to int erpret this result as normal/abnormal . [facility] HospitalBgctrhwEUVASREJNF9100-42-28 07:51:00 Test Item Value Reference Range Interpretation Comments Lymphocytes # (test code = Lymphocytes 3.6 1.0-5.5 #) [facility] HospitalXhuhzhcSINAGGTHRM6828-28-01 07:51:00 Test Item Value Reference Range Interpretation Comments Monocytes # (test code 0.7 See_Comment [Aut omated message] The = Monocytes #) system which generated this result tra nsmitted reference range : <=0.8. The reference r ozzy was not used to int erpret this result as normal/abnormal . [facility] HospitalGhnqccqPSVYXQCOQL6266-87-90 07:51:00 Test Item Value Reference Range Interpretation Comments Segs (test code = Segs) 63.9 45.0-75.0 [facility] HospitalAzcrotfKEIYJMYYNO3117-59-37 07:51:00 Test Item Value Reference Range Interpretation Comments Segs-Bands # (test code = Segs-Bands #) 8.2 1.5-8.1 [facility] HospitalEnmiocfHAKTGXZHUS8878-60-46 07:51:00 Test Item Value Reference Range Interpretation Comments Basophils (test code = 0.7 See_Comment [Aut omated message] The Basophils) system which ge nerated this result tra nsmitted reference range : <=1.0. The reference r ozzy was not used to int erpret this result as normal/abnormal . [facility] HospitalKbrhmlcCYSDSRGVXO2186-79-81 07:51:00 Test Item Value Reference Range Interpretation Comments Monocytes (test code = Monocytes) 5.4 2.0-12.0 [facility] HospitalJrrrmtcWJHOFKNOSV3458-21-70 07:51:00 Test Item Value Reference Range Interpretation Comments Eosinophils (test code = 2.3 See_Comment [A utomated message] The Eosinophils) system which ge nerated this result tra nsmitted reference range : <=4.0. The reference r ozzy was not used to int erpret this result as normal/abnormal . [facility] HospitalFgykwufHJVKMJKIVQ1908-75-19 07:51:00 Test Item Value Reference Range Interpretation Comments Lymphocytes (test code = Lymphocytes) 27.7 20.0-40.0 [facility] HospitalRomkkqeSMWQWHIIDY3056-33-47 07:51:00 Test Item Value Reference Range Interpretation Comments Basophils # (test code 0.1 See_Comment [Aut omated message] The = Basophils #) system which generated this result tra nsmitted reference range : <=0.2. The reference r ozzy was not used to int erpret this result as normal/abnormal . [facility]2015-01-23 07:51:00 Test Item Value Reference Range Interpretation Comments UA Urobilinogen (test code = UA 1.0 0.1-1.0 Urobilinogen) [facility]2015-01-23 07:51:00 Test Item Value Reference Range Interpretation Comments UA Turbidity (test code Cloudy *ABN*(09/04/14 = UA Turbidity) 1:51 AM) [facility] [id number] 07:51:00 Test Item Value Reference Range Interpretation Comments UA Color (test code = Red *ABN*(09/04/14 1:51 UA Color) AM) [facility] AND [id number] 07:51:00 Test Item Value Reference Range Interpretation Comments UA Ketones (test code Negative *NA*(09/04/14 = UA Ketones) 1:51 AM) [facility] AND [id number] 07:51:00 Test Item Value Reference Range Interpretation Comments UA Glucose (test code Negative (09/04/14 1:51 = UA Glucose) AM) [facility] [id number] 07:51:00 Test Item Value Reference Range Interpretation Comments UA Protein (test code = Trace *ABN*(09/04/14 UA Protein) 1:51 AM) [facility] AND [id number] 07:51:00 Test Item Value Reference Range Interpretation Comments UA pH (test code = UA pH) 8.0 1 5.0-8.0 [facility] AND [id number] 07:51:00 Test Item Value Reference Range Interpretation Comments UA Spec Grav (test code = UA Spec 1.015 1 Grav) [facility] [id number] 07:51:00 Test Item Value Reference Range Interpretation Comments UA Bili (test code = Negative *NA*(09/04/14 UA Bili) 1:51 AM) [facility] AND [id number] 07:51:00 Test Item Value Reference Range Interpretation Comments UA Blood (test code = Large *ABN*(09/04/14 UA Blood) 1:51 AM) [facility] [id number] 07:51:00 Test Item Value Reference Range Interpretation Comments UA Leuk Est (test Negative (09/04/14 1:51 code = UA Leuk Est) AM) [facility] [id number] 07:51:00 Test Item Value Reference Range Interpretation Comments UA Nitrite (test code Negative (09/04/14 1:51 = UA Nitrite) AM) [facility] AND [id number] 07:51:00 Test Item Value Reference Range Interpretation Comments UA Amorph Joselin (test code = UA Few /HPF Amorph Joselin) [facility] AND [id number] 07:51:00 Test Item Value Reference Range Interpretation Comments UA RBC (test code 51-100 /HPF See_Comment [Automate d message] The = UA RBC) system which ge nerated this result tra nsmitted reference range : <=2. The reference r ozzy was not used to int erpret this result as normal/abnormal . [facility] AND [id number] 07:51:00 Test Item Value Reference Range Interpretation Comments UA WBC (test code = UA WBC) 6-10 /HPF [facility] AND [id number] 07:51:00 Test Item Value Reference Range Interpretation Comments UA Bacteria (test code = UA Few /HPF Bacteria) [facility] AND [id number] 07:51:00 Test Item Value Reference Range Interpretation Comments UA Sq Epi (test code = UA Sq Occasional /LPF Epi) [facility] [id number] 07:51:00 Test Item Value Reference Range Interpretation Comments ABO/Rh (test code = ABO/Rh) A POS [facility] [id number] 07:51:00 Test Item Value Reference Range Interpretation Comments Antibody Scrn (test Negative (09/04/14 1:51 code = Antibody Scrn) AM) [facility] [id number] 07:51:00 Test Item Value Reference Range Interpretation Comments Albumin Lvl (test code = Albumin Lvl) 3.4 3.5-5.0 [facility] [id number] 07:51:00 Test Item Value Reference Range Interpretation Comments Alk Phos (test code = Alk Phos) 64 39-136 [facility] [id number] 07:51:00 Test Item Value Reference Range Interpretation Comments ALT (test code = ALT) 18 See_Comment [Auto mated message] The system which ge nerated this result transmit gaye reference range : <=65. The reference range was not used to interpr et this result as satish l/abnormal. [facility] [id number] 07:51:00 Test Item Value Reference Range Interpretation [...] (test code = Bili Total) 0.3 0.2-1.3 [place] [id number] 07:51:00 Test Item Value Reference Range Interpretation [...] AGAP (test code = AGAP) 11.9 10.0-20.0 [facility] [id number] 07:51:00 Test Item Value Reference Range Interpretation Comments B/C Ratio (test code = B/C Ratio) 15 6-25 [facility] [id number] 07:51:00 Test Item Value Reference Range Interpretation Comments Globulin (test code = Globulin) 3.9 2.0-4.0 [facility] [id number] 07:51:00 Test Item Value Reference Range Interpretation Comments A/G Ratio (test code = A/G Ratio) 0.9 0.7-1.6 [facility] CenterKqndphpZXOHKBLXTAOXP6330-64-25 07:51:00 Test Item Value Reference Range Interpretation Comments hCG Tot (test code = hCG Tot) no gt [facility] HospitalOdaiqhjYMQGJNMCNJ6054-07-24 07:51:00 Test Item Value Reference Range Interpretation Comments MCHC (test code = MCHC) 33.8 32.0-36.0 [facility] HospitalUonowtaDYJMTWFLVV4776-08-27 07:51:00 Test Item Value Reference Range Interpretation Comments MCH (test code = MCH) 30.3 pg 27.0-31.0 [facility] HospitalAsumlonKMVBWKYHGO7665-48-69 07:51:00 Test Item Value Reference Range Interpretation Comments RDW (test code = RDW) 13.0 11.5-14.5 [facility] HospitalGyrmxttDAVLGQPTPU9541-10-27 07:51:00 Test Item Value Reference Range Interpretation Comments MPV (test code = MPV) 8.4 7.4-10.4 [facility] HospitalQufwovwBAWRWTEJTP9315-19-47 07:51:00 Test Item Value Reference Range Interpretation Comments Platelet (test code = Platelet) 356 133-450 [facility] Hos[id number] 07:51:00 Test Item Value Reference Range Interpretation Comments RBC (test code = RBC) 4.45 4.20-5.40 [facility] HospitalPonhomyIOVHWCWMZO5635-34-62 07:51:00 Test Item Value Reference Range Interpretation Comments WBC (test code = WBC) 12.9 3.7-10.4 [facility] HospitalVohggiuHPYBADDMKR0725-50-70 07:51:00 Test Item Value Reference Range Interpretation Comments Hgb (test code = Hgb) 13.5 12.0-16.0 [facility] HospitalElbjhwxVHUDAHIMKV5528-84-33 07:51:00 Test Item Value Reference Range Interpretation Comments MCV (test code = MCV) 89.7 80.0-98.0 [facility] HospitalUlcynaoTXSJRPEVMZ0993-23-69 07:51:00 Test Item Value Reference Range Interpretation Comments Hct (test code = Hct) 39.9 36.0-48.0 [facility] HospitalKfrvinyDVUINUKQKT6858-53-52 07:51:00 Test Item Value Reference Range Interpretation Comments Eosinophils # (test code 0.3 See_Comment [A utomated message] The = Eosinophils #) system whic h generated this result tra nsmitted reference range : <=0.5. The reference r ozzy was not used to int erpret this result as normal/abnormal . [facility] HospitalLzcolykKXPTMGBBNM9659-73-80 07:51:00 Test Item Value Reference Range Interpretation Comments Lymphocytes # (test code = Lymphocytes 3.6 1.0-5.5 #) [facility] HospitalUyrbsscCMCWOGGWUK7181-37-23 07:51:00 Test Item Value Reference Range Interpretation Comments Monocytes # (test code 0.7 See_Comment [Aut omated message] The = Monocytes #) system which generated this result tra nsmitted reference range : <=0.8. The reference r ozzy was not used to int erpret this result as normal/abnormal . [facility] HospitalSagkwefKMBGOAPSXT1592-91-35 07:51:00 Test Item Value Reference Range Interpretation Comments Segs (test code = Segs) 63.9 45.0-75.0 [facility] HospitalJgvqfncPFAEZZRXHX3160-37-88 07:51:00 Test Item Value Reference Range Interpretation Comments Segs-Bands # (test code = Segs-Bands #) 8.2 1.5-8.1 [facility] HospitalPgejutvAOPSOJBOQC2195-44-74 07:51:00 Test Item Value Reference Range Interpretation Comments Basophils (test code = 0.7 See_Comment [Aut omated message] The Basophils) system which ge nerated this result tra nsmitted reference range : <=1.0. The reference r ozzy was not used to int erpret this result as normal/abnormal . [facility] HospitalLgwwwxoINRKRTOSQW3352-53-95 07:51:00 Test Item Value Reference Range Interpretation Comments Monocytes (test code = Monocytes) 5.4 2.0-12.0 [facility] HospitalEfxokguPYHYLPSZSW4730-42-30 07:51:00 Test Item Value Reference Range Interpretation Comments Eosinophils (test code = 2.3 See_Comment [A utomated message] The Eosinophils) system which ge nerated this result tra nsmitted reference range : <=4.0. The reference r ozzy was not used to int erpret this result as normal/abnormal . [facility] HospitalMrmnkpuEKMKPWBYFQ8963-46-57 07:51:00 Test Item Value Reference Range Interpretation Comments Lymphocytes (test code = Lymphocytes) 27.7 20.0-40.0 [facility] HospitalAfaagguLSNEECANDK1394-93-94 07:51:00 Test Item Value Reference Range Interpretation Comments Basophils # (test code 0.1 See_Comment [Aut omated message] The = Basophils #) system which generated this result tra nsmitted reference range : <=0.2. The reference r ozzy was not used to int erpret this result as normal/abnormal . [facility] AND [id number] 07:51:00 Test Item Value Reference Range Interpretation Comments UA Urobilinogen (test code = UA 1.0 0.1-1.0 Urobilinogen) [facility] AND [id number] 07:51:00 Test Item Value Reference Range Interpretation Comments UA Turbidity (test code Cloudy *ABN*(09/04/14 = UA Turbidity) 1:51 AM) [facility] [id number] 07:51:00 Test Item Value Reference Range Interpretation Comments UA Color (test code = Red *ABN*(09/04/14 1:51 UA Color) AM) [facility] AND [id number] 07:51:00 Test Item Value Reference Range Interpretation Comments UA Ketones (test code Negative *NA*(09/04/14 = UA Ketones) 1:51 AM) [facility] AND [id number] 07:51:00 Test Item Value Reference Range Interpretation Comments UA Glucose (test code Negative (09/04/14 1:51 = UA Glucose) AM) [facility] [id number] 07:51:00 Test Item Value Reference Range Interpretation Comments UA Protein (test code = Trace *ABN*(09/04/14 UA Protein) 1:51 AM) [facility] AND [id number] 07:51:00 Test Item Value Reference Range Interpretation Comments UA pH (test code = UA pH) 8.0 1 5.0-8.0 [facility] AND [id number] 07:51:00 Test Item Value Reference Range Interpretation Comments UA Spec Grav (test code = UA Spec 1.015 1 Grav) [facility] [id number] 07:51:00 Test Item Value Reference Range Interpretation Comments UA Bili (test code = Negative *NA*(09/04/14 UA Bili) 1:51 AM) [facility] AND [id number] 07:51:00 Test Item Value Reference Range Interpretation Comments UA Blood (test code = Large *ABN*(09/04/14 UA Blood) 1:51 AM) [facility] AND [id number] 07:51:00 Test Item Value Reference Range Interpretation Comments UA Leuk Est (test Negative (09/04/14 1:51 code = UA Leuk Est) AM) [facility] AND [id number] 07:51:00 Test Item Value Reference Range Interpretation Comments UA Nitrite (test code Negative (09/04/14 1:51 = UA Nitrite) AM) [facility] AND [id number] 07:51:00 Test Item Value Reference Range Interpretation Comments UA Amorph Joselin (test code = UA Few /HPF Amorph Joselin) [facility] AND [id number] 07:51:00 Test Item Value Reference Range Interpretation Comments UA RBC (test code 51-100 /HPF See_Comment [Automate d message] The = UA RBC) system which ge nerated this result tra nsmitted reference range : <=2. The reference r ozzy was not used to int erpret this result as normal/abnormal . [facility] AND [id number] 07:51:00 Test Item Value Reference Range Interpretation Comments UA WBC (test code = UA WBC) 6-10 /HPF [facility] AND [id number] 07:51:00 Test Item Value Reference Range Interpretation Comments UA Bacteria (test code = UA Few /HPF Bacteria) [facility] [id number] 07:51:00 Test Item Value Reference Range Interpretation Comments UA Sq Epi (test code = UA Sq Occasional /LPF Epi) [facility] [id number] 07:51:00 Test Item Value Reference Range Interpretation Comments ABO/Rh (test code = ABO/Rh) [facility] [id number] 07:51:00 Test Item Value Reference Range Interpretation Comments Antibody Scrn (test Negative (09/04/14 1:51 code = Antibody Scrn) AM) [facility] [id number] 07:51:00 Test Item Value Reference Range Interpretation Comments Albumin Lvl (test code = Albumin Lvl) 3.4 3.5-5.0 [facility] [id number] 07:51:00 Test Item Value Reference Range Interpretation Comments Alk Phos (test code = Alk Phos) 64 39-136 [facility] [id number] 07:51:00 Test Item Value Reference Range Interpretation Comments ALT (test code = ALT) 18 See_Comment [Auto mated message] The system which ge nerated this result transmit gaye reference range : <=65. The reference range was not used to interpr et this result as satish l/abnormal. [facility] [id number] 07:51:00 Test Item Value Reference Range Interpretation Comments AST (test code = AST) 12 See_Comment [Auto mated message] The system which ge nerated this result transmit gaye reference range : <=37. The reference range was not used to interpr et this result as satish l/abnormal. [facility] [id number] 07:51:00 Test Item Value Reference Range Interpretation Comments eGFR (test code = eGFR) 93 [facility] [id number] 07:51:00 Test Item Value Reference Range Interpretation Comments Bili Total (test code = Bili Total) 0.3 0.2-1.3 [facility] [id number] 07:51:00 Test Item Value Reference Range Interpretation Comments Chloride Lvl (test code = Chloride Lvl) 108 95-109 [facility] [id number] 07:51:00 Test Item Value Reference Range Interpretation Comments Sodium Lvl (test code = Sodium Lvl) 138 135-145 [facility] [id number] 07:51:00 Test Item Value Reference Range Interpretation Comments Potassium Lvl (test code = Potassium 3.9 3.5-5.1 Lvl) [facility] [id number] 07:51:00 Test Item Value Reference Range Interpretation Comments CO2 (test code = CO2) 22 24-32 [facility] [id number] 07:51:00 Test Item Value Reference Range Interpretation Comments Calcium Lvl (test code = Calcium Lvl) 8.8 8.5-10.5 [facility] [id number] 07:51:00 Test Item Value Reference Range Interpretation Comments Glucose Lvl (test code = Glucose Lvl) 98 70-99 [facility] [id number] 07:51:00 Test Item Value Reference Range Interpretation Comments Total Protein (test code = Total 7.3 6.4-8.4 Protein) [facility] [id number] 07:51:00 Test Item Value Reference Range Interpretation Comments BUN (test code = BUN) 12 - [facility] HospitalStartup NetworkWAKE FOREST BAPT[facility] HE[facility] DAVIE [id number] 07:51:00 Test Item Value Reference Range Interpretation Comments Creatinine Lvl (test code = Creatinine 0.8 0.5-1.4 Lvl) [facility] [id number] 07:51:00 Test Item Value Reference Range Interpretation Comments AGAP (test code = AGAP) 11.9 10.0-20.0 [facility] [id number] 07:51:00 Test Item Value Reference Range Interpretation Comments B/C Ratio (test code = B/C Ratio) 15 6-25 [facility] [id number] 07:51:00 Test Item Value Reference Range Interpretation Comments ABO/Rh (test code = ABO/Rh) A POS [facility] [employer] [facility] [id number] 07:51:00 Test Item Value Reference Range Interpretation Comments Antibody Scrn (test Negative (09/04/14 1:51 code = Antibody Scrn) AM) [facility] [id number] 07:51:00 Test Item Value Reference Range Interpretation Comments Albumin Lvl (test code = Albumin Lvl) 3.4 3.5-5.0 [facility] [id number] 07:51:00 Test Item Value Reference Range Interpretation Comments Alk Phos (test code = Alk Phos) 64 39-136 [facility] [id number] 07:51:00 Test Item Value Reference Range Interpretation [...] this result as satish l/abnormal. [facility] [id number] 07:51:00 Test Item Value Reference Range Interpretation Comments eGFR (test code = eGFR) 93 [facility]2015-01-23 07:51:00 Test Item Value Reference Range Interpretation Comments Bili Total (test code = Bili Total) 0.3 0.2-1.3 [facility] [id number] 07:51:00 Test Item Value Reference Range Interpretation Comments Chloride Lvl (test code = Chloride Lvl) 108 95-109 [facility] [id number] 07:51:00 Test Item Value Reference Range Interpretation Comments Sodium Lvl (test code = Sodium Lvl) 138 135-145 [facility] [id number] 07:51:00 Test Item Value Reference Range Interpretation Comments Potassium Lvl (test code = Potassium 3.9 3.5-5.1 Lvl) [facility]2015-01-23 07:51:00 Test Item Value Reference Range Interpretation Comments CO2 (test code = CO2) 22 24-32 [facility]2015-01-23 07:51:00 Test Item Value Reference Range Interpretation Comments Calcium Lvl (test code = Calcium Lvl) 8.8 8.5-10.5 [facility] [id number] 07:51:00 Test Item Value Reference Range Interpretation Comments Glucose Lvl (test code = Glucose Lvl) 98 70-99 [facility]2015-01-23 07:51:00 Test Item Value Reference Range Interpretation Comments Total Protein (test code = Total 7.3 6.4-8.4 Protein) [place] [id number] 07:51:00 Test Item Value Reference Range Interpretation [...] (test code = A/G Ratio) 0.9 0.7-1.6 [facility]LwwjqugKERUPUWGYIYSL5318-52-99 07:51:00 Test Item Value Reference Range Interpretation Comments hCG Tot (test code = hCG Tot) no gt [facility]NdcbvrfWZIHZQTRPC1425-23-48 07:51:00 Test Item Value Reference Range Interpretation Comments MCHC (test code = MCHC) 33.8 32.0-36.0 [facility] HospitalWdbzsqyTAOJRXAQQN0247-22-98 07:51:00 Test Item Value Reference Range Interpretation Comments MCH (test code = MCH) 30.3 pg 27.0-31.0 [facility] HospitalBrebbwaIUXBXJRWPP8494-31-74 07:51:00 Test Item Value Reference Range Interpretation Comments RDW (test code = RDW) 13.0 11.5-14.5 [facility] HospitalKdxtalcXELPJXAZWO1019-67-24 07:51:00 Test Item Value Reference Range Interpretation Comments MPV (test code = MPV) 8.4 7.4-10.4 [facility] HospitalWajeywyVJZCAVSWGG9047-21-26 07:51:00 Test Item Value Reference Range Interpretation Comments Platelet (test code = Platelet) 356 133-450 [facility] HospitalBcdpmtxYDARBHNARS5340-62-12 07:51:00 Test Item Value Reference Range Interpretation Comments RBC (test code = RBC) 4.45 4.20-5.40 [facility] HospitalZkdyaylYFEMGQMBNL5698-30-74 07:51:00 Test Item Value Reference Range Interpretation Comments WBC (test code = WBC) 12.9 3.7-10.4 [facility] HospitalTidvkipMJOBWTQIBJ7639-94-88 07:51:00 Test Item Value Reference Range Interpretation Comments Hgb (test code = Hgb) 13.5 12.0-16.0 [facility] HospitalCxvxzypAOKFEVXUES4101-42-05 07:51:00 Test Item Value Reference Range Interpretation Comments MCV (test code = MCV) 89.7 80.0-98.0 [facility] HospitalZgwpaccUFDJEQXGQH4093-43-28 07:51:00 Test Item Value Reference Range Interpretation Comments Hct (test code = Hct) 39.9 36.0-48.0 [facility] HospitalPoyekazKEFSKAPDAH1368-80-32 07:51:00 Test Item Value Reference Range Interpretation Comments Eosinophils # (test code 0.3 See_Comment [A utomated message] The = Eosinophils #) system whic h generated this result tra nsmitted reference range : <=0.5. The reference r ozzy was not used to int erpret this result as normal/abnormal . [facility] HospitalUrzitjpWTZAGSTZZD7265-31-82 07:51:00 Test Item Value Reference Range Interpretation Comments Lymphocytes # (test code = Lymphocytes 3.6 1.0-5.5 #) [facility] HospitalYgctmgpTDESDXINUT3780-15-13 07:51:00 Test Item Value Reference Range Interpretation Comments Monocytes # (test code 0.7 See_Comment [Aut omated message] The = Monocytes #) system which generated this result tra nsmitted reference range : <=0.8. The reference r ozzy was not used to int erpret this result as normal/abnormal . [facility] HospitalSksfactRUMOPEZLVY6401-78-00 07:51:00 Test Item Value Reference Range Interpretation Comments Segs (test code = Segs) 63.9 45.0-75.0 [facility] HospitalJqzhnarVXVCGXLYQV5021-45-43 07:51:00 Test Item Value Reference Range Interpretation Comments Segs-Bands # (test code = Segs-Bands #) 8.2 1.5-8.1 [facility] HospitalRzhzjlgBBJVXRJLRL5697-62-74 07:51:00 Test Item Value Reference Range Interpretation Comments Basophils (test code = 0.7 See_Comment [Aut omated message] The Basophils) system which ge nerated this result tra nsmitted reference range : <=1.0. The reference r ozzy was not used to int erpret this result as normal/abnormal . [facility] HospitalZiurtezJWNFUSIGAJ4368-57-04 07:51:00 Test Item Value Reference Range Interpretation Comments Monocytes (test code = Monocytes) 5.4 2.0-12.0 [facility] HospitalPvczktcVZOKBNFCXP2663-42-74 07:51:00 Test Item Value Reference Range Interpretation Comments Eosinophils (test code = 2.3 See_Comment [A utomated message] The Eosinophils) system which ge nerated this result tra nsmitted reference range : <=4.0. The reference r ozzy was not used to int erpret this result as normal/abnormal . [facility] HospitalMhfufesPSVAGMBCIO8447-16-75 07:51:00 Test Item Value Reference Range Interpretation Comments Lymphocytes (test code = Lymphocytes) 27.7 20.0-40.0 [facility] HospitalFgcrdcvBEOLDKPUEE4128-37-72 07:51:00 Test Item Value Reference Range Interpretation Comments Basophils # (test code 0.1 See_Comment [Aut omated message] The = Basophils #) system which generated this result tra nsmitted reference range : <=0.2. The reference r ozzy was not used to int erpret this result as normal/abnormal . [facility] AND [id number] 07:51:00 Test Item Value Reference Range Interpretation Comments UA Urobilinogen (test code = UA 1.0 0.1-1.0 Urobilinogen) [facility] AND [id number] 07:51:00 Test Item Value Reference Range Interpretation Comments UA Turbidity (test code Cloudy *ABN*(09/04/14 = UA Turbidity) 1:51 AM) [facility] AND [id number] 07:51:00 Test Item Value Reference Range Interpretation Comments UA Color (test code = Red *ABN*(09/04/14 1:51 UA Color) AM) [facility] AND [id number] 07:51:00 Test Item Value Reference Range Interpretation Comments UA Ketones (test code Negative *NA*(09/04/14 = UA Ketones) 1:51 AM) [facility] AND [id number] 07:51:00 Test Item Value Reference Range Interpretation Comments UA Glucose (test code Negative (09/04/14 1:51 = UA Glucose) AM) [facility] AND [id number] 07:51:00 Test Item Value Reference Range Interpretation Comments UA Protein (test code = Trace *ABN*(09/04/14 UA Protein) 1:51 AM) [facility] AND [id number] 07:51:00 Test Item Value Reference Range Interpretation Comments UA pH (test code = UA pH) 8.0 1 5.0-8.0 [facility] AND [id number] 07:51:00 Test Item Value Reference Range Interpretation Comments UA Spec Grav (test code = UA Spec 1.015 1 Grav) [facility] AND [id number] 07:51:00 Test Item Value Reference Range Interpretation Comments UA Bili (test code = Negative *NA*(09/04/14 UA Bili) 1:51 AM) [facility] AND [id number] 07:51:00 Test Item Value Reference Range Interpretation Comments UA Blood (test code = Large *ABN*(09/04/14 UA Blood) 1:51 AM) [facility] AND [id number] 07:51:00 Test Item Value Reference Range Interpretation Comments UA Leuk Est (test Negative (09/04/14 1:51 code = UA Leuk Est) AM) [facility] AND [id number] 07:51:00 Test Item Value Reference Range Interpretation Comments UA Nitrite (test code Negative (09/04/14 1:51 = UA Nitrite) AM) [facility] AND [id number] 07:51:00 Test Item Value Reference Range Interpretation Comments UA Amorph Joselin (test code = UA Few /HPF Amorph Joselin) [facility] AND [id number] 07:51:00 Test Item Value Reference Range Interpretation Comments UA RBC (test code 51-100 /HPF See_Comment [Automate d message] The = UA RBC) system which ge nerated this result tra nsmitted reference range : <=2. The reference r ozzy was not used to int erpret this result as normal/abnormal . [facility] AND [id number] 07:51:00 Test Item Value Reference Range Interpretation Comments UA WBC (test code = UA WBC) 6-10 /HPF [facility] AND [id number] 07:51:00 Test Item Value Reference Range Interpretation Comments UA Bacteria (test code = UA Few /HPF Bacteria) [facility] AND [id number] 07:51:00 Test Item Value Reference Range Interpretation Comments UA Sq Epi (test code = UA Sq Occasional /LPF Epi) [facility]2015-01-12 19:24:00 Test [...] Globulin (test code = Globulin) 4.2 2.0-4.0 [facility]YgyhejfWALXPVLJWYQRN2576-58-48 19:24:00 Test Item Value Reference Range Interpretation Comments S Preg (test code = S Negative *NA*(08/24/14 Preg) 1:24 PM) [facility] HospitalWjtsckcJUUZJYUHMS1240-53-09 19:24:00 Test Item Value Reference Range Interpretation Comments WBC (test code = WBC) 11.3 3.7-10.4 [facility] HospitalMfkqyojEFRBOIXQWZ4978-00-75 19:24:00 Test Item Value Reference Range Interpretation Comments RBC (test code = RBC) 4.75 4.20-5.40 [facility] HospitalAevuexpVYNTOABMSM7364-23-72 19:24:00 Test Item Value Reference Range Interpretation Comments Platelet (test code = Platelet) 402 133-450 [facility] HospitalHxzgngqAEYHPCBKTU1710-41-93 19:24:00 Test Item Value Reference Range Interpretation Comments MCV (test code = MCV) 89.9 80.0-98.0 [facility] HospitalFohlnexAWOQSITCOZ1926-72-78 19:24:00 Test Item Value Reference Range Interpretation Comments Hct (test code = Hct) 42.7 36.0-48.0 [facility] HospitalTpimtwtGGRNOTQQNE2664-74-41 19:24:00 Test Item Value Reference Range Interpretation Comments Hgb (test code = Hgb) 14.5 12.0-16.0 [facility] HospitalEsqtrwsZZEBXTSOCZ2945-30-61 19:24:00 Test Item Value Reference Range Interpretation Comments RDW (test code = RDW) 13.5 11.5-14.5 [facility] HospitalBlzvnewAROJQIERVH3302-67-19 19:24:00 Test Item Value Reference Range Interpretation Comments MCHC (test code = MCHC) 34.0 32.0-36.0 [facility] HospitalLqrkqslPDQHADRHUP2663-19-19 19:24:00 Test Item Value Reference Range Interpretation Comments MCH (test code = MCH) 30.6 pg 27.0-31.0 [facility] HospitalWtraenuZSSJLJTJIF9032-00-39 19:24:00 Test Item Value Reference Range Interpretation Comments MPV (test code = MPV) 8.1 7.4-10.4 [facility] HospitalDvyagcfLIHEMWLHAL8873-92-54 19:24:00 Test Item Value Reference Range Interpretation Comments Stomatocyte (test code = Stomatocyte) Slight [facility] HospitalRnwvzbuUOIUIPYYDO7798-65-83 19:24:00 Test Item Value Reference Range Interpretation Comments Basophils # (test code 0.1 See_Comment [Aut omated message] The = Basophils #) system which generated this result tra nsmitted reference range : <=0.2. The reference r ozzy was not used to int erpret this result as normal/abnormal . [facility] HospitalHviegeiYEIHJCDKBG8329-17-88 19:24:00 Test Item Value Reference Range Interpretation Comments Eosinophils # (test code 0.2 See_Comment [A utomated message] The = Eosinophils #) system whic h generated this result tra nsmitted reference range : <=0.5. The reference r ozzy was not used to int erpret this result as normal/abnormal . [facility] HospitalDactljrXIGCOSFVWG4936-58-10 19:24:00 Test Item Value Reference Range Interpretation Comments Hypochrom (test code = 1+ (08/24/14 1:24 PM) Hypochrom) [facility] HospitalFcnippwNXNDGMDONS4547-82-55 19:24:00 Test Item Value Reference Range Interpretation Comments Lymphocytes # (test code = Lymphocytes 2.8 1.0-5.5 #) [facility] HospitalNnqkjsuDZTXXPRNEA3380-87-53 19:24:00 Test Item Value Reference Range Interpretation Comments Segs-Bands # (test code = Segs-Bands #) 8.1 1.5-8.1 [facility] HospitalWqwnsroASYNWFAABK3874-14-14 19:24:00 Test Item Value Reference Range Interpretation Comments Monocytes # (test code 0.2 See_Comment [Aut omated message] The = Monocytes #) system which generated this result tra nsmitted reference range : <=0.8. The reference r ozzy was not used to int erpret this result as normal/abnormal . [facility] HospitalXohoykrAAARXCLXXR1518-20-34 19:24:00 Test Item Value Reference Range Interpretation Comments Lymphocytes (test code = Lymphocytes) 24.5 20.0-40.0 [facility] HospitalKsfutzjVTVVXDCWFU4210-13-44 19:24:00 Test Item Value Reference Range Interpretation Comments Segs (test code = Segs) 71.8 45.0-75.0 [facility] HospitalKtrzxphJGCYCHVXEO6014-21-97 19:24:00 Test Item Value Reference Range Interpretation Comments Basophils (test code = 0.6 See_Comment [Aut omated message] The Basophils) system which ge nerated this result tra nsmitted reference range : <=1.0. The reference r ozzy was not used to int erpret this result as normal/abnormal . [facility] HospitalDuropqrXJDYXEDFDZ0747-76-21 19:24:00 Test Item Value Reference Range Interpretation Comments Monocytes (test code = Monocytes) 1.5 2.0-12.0 [facility] HospitalGwbgtdsPJZEROAKAL0638-13-79 19:24:00 Test Item Value Reference Range Interpretation Comments Eosinophils (test code = 1.6 See_Comment [A utomated message] The Eosinophils) system which ge nerated this result tra nsmitted reference range : <=4.0. The reference r ozzy was not used to int erpret this result as normal/abnormal . [facility] HospitalRitzrabQPRYPMRYJF1898-58-42 19:24:00 Test Item Value Reference Range Interpretation Comments Plt Morph (test code = Normal (08/24/14 1:24 Plt Morph) PM) [facility] AND [id number] 19:24:00 Test Item Value Reference Range Interpretation Comments UA Sq Epi (test code = UA Sq Occasional /LPF Epi) [facility] AND [id number] 19:24:00 Test Item Value Reference Range Interpretation Comments UA Bacteria (test code = UA Occasional /HPF Bacteria) [facility] AND [id number] 19:24:00 Test Item Value Reference Range Interpretation Comments UA Mucus (test code = None Seen (08/24/14 UA Mucus) 1:24 PM) [facility] AND [id number] 19:24:00 Test Item Value Reference Range Interpretation Comments UA WBC (test code = UA WBC) 0-2 /HPF [facility] AND [id number] 19:24:00 Test Item Value Reference Range Interpretation Comments UA RBC (test code = 0-2 /HPF See_Comment [Automa gaye message] The UA RBC) system which ge nerated this result tra nsmitted reference range : <=2. The reference range was not used to interpr et this result as satish l/abnormal. [facility] AND [id number] 19:24:00 Test Item Value Reference Range Interpretation Comments UA Leuk Est (test Moderate *ABN*(08/24/14 code = UA Leuk Est) 1:24 PM) [facility] AND [id number] 19:24:00 Test Item Value Reference Range Interpretation Comments UA Nitrite (test code Negative (08/24/14 1:24 = UA Nitrite) PM) [facility] [id number] 19:24:00 Test Item Value Reference Range Interpretation Comments UA Urobilinogen (test code = UA 0.2 0.1-1.0 Urobilinogen) [facility] [id number] 19:24:00 Test Item Value Reference Range Interpretation Comments UA Ketones (test code Negative *NA*(08/24/14 = UA Ketones) 1:24 PM) [facility] [id number] 19:24:00 Test Item Value Reference Range Interpretation Comments UA Blood (test code = Negative (08/24/14 1:24 UA Blood) PM) [facility] [id number] 19:24:00 Test Item Value Reference Range Interpretation Comments UA Bili (test code = Negative *NA*(08/24/14 UA Bili) 1:24 PM) [facility] [id number] 19:24:00 Test Item Value Reference Range Interpretation Comments UA Color (test code = Yellow *NA*(08/24/14 UA Color) 1:24 PM) [facility] [id number] 19:24:00 Test Item Value Reference Range Interpretation Comments UA Glucose (test code Negative (08/24/14 1:24 = UA Glucose) PM) [facility] [id number] 19:24:00 Test Item Value Reference Range Interpretation Comments UA Protein (test code Negative (08/24/14 1:24 = UA Protein) PM) [facility] [id number] 19:24:00 Test Item Value Reference Range Interpretation Comments UA pH (test code = UA pH) 6.0 1 5.0-8.0 [facility] [id number] 19:24:00 Test Item Value Reference Range Interpretation Comments UA Spec Grav (test code *NA*(08/24/14 1:24 PM) = UA Spec Grav) [facility] [id number] 19:24:00 Test Item Value Reference Range Interpretation Comments UA Turbidity (test code = Clear (08/24/14 1:24 UA Turbidity) PM) [facility] [id number] 19:24:00 Test Item Value Reference Range Interpretation [...] (test code = B/C Ratio) 10 6-25 [place] [id number] 19:24:00 Test Item Value Reference Range Interpretation Comments Globulin (test code = Globulin) 4.2 2.0-4.0 [facility]VbugigvKOUMMRZFQFVUR7862-00-32 19:24:00 Test Item Value Reference Range Interpretation Comments S Preg (test code = S Negative *NA*(08/24/14 Preg) 1:24 PM) [facility] HospitalHyfbiapQRTJXUBOXH0876-98-26 19:24:00 Test Item Value Reference Range Interpretation Comments WBC (test code = WBC) 11.3 3.7-10.4 [facility] HospitalUhkcyacGUHJBJHOBS6725-83-97 19:24:00 Test Item Value Reference Range Interpretation Comments RBC (test code = RBC) 4.75 4.20-5.40 [facility] HospitalSfydvvcTWUJBXRWHW0952-62-02 19:24:00 Test Item Value Reference Range Interpretation Comments Platelet (test code = Platelet) 402 126-450 [facility] HospitalMnjgzdkGFRQJNZFKI7759-33-04 19:24:00 Test Item Value Reference Range Interpretation Comments MCV (test code = MCV) 89.9 80.0-98.0 [facility] HospitalZcullpyQPPCUMZOKJ6000-10-25 19:24:00 Test Item Value Reference Range Interpretation Comments Hct (test code = Hct) 42.7 36.0-48.0 [facility] HospitalQzpqwtvLMVBWGGKCF0207-50-10 19:24:00 Test Item Value Reference Range Interpretation Comments Hgb (test code = Hgb) 14.5 12.0-16.0 [facility] HospitalHpotnpwGWPFNQKLAM9388-58-78 19:24:00 Test Item Value Reference Range Interpretation Comments RDW (test code = RDW) 13.5 11.5-14.5 [facility] HospitalZfbiqjsDCSKVLEZRO1427-16-23 19:24:00 Test Item Value Reference Range Interpretation Comments MCHC (test code = MCHC) 34.0 32.0-36.0 [facility] HospitalJdadmldXRFYZKDYFD4426-13-52 19:24:00 Test Item Value Reference Range Interpretation Comments MCH (test code = MCH) 30.6 pg 27.0-31.0 [facility] Hos[id number] 19:24:00 Test Item Value Reference Range Interpretation Comments MPV (test code = MPV) 8.1 7.4-10.4 [facility] HospitalEwptokjWJMUNIIWWE4351-63-34 19:24:00 Test Item Value Reference Range Interpretation Comments Stomatocyte (test code = Stomatocyte) Slight [facility] HospitalHbbkysdHYPKHDATJR1784-22-63 19:24:00 Test Item Value Reference Range Interpretation Comments Basophils # (test code 0.1 See_Comment [Aut omated message] The = Basophils #) system which generated this result tra nsmitted reference range : <=0.2. The reference r ozzy was not used to int erpret this result as normal/abnormal . [facility] HospitalOlohwjqBDVAMBZANA6707-99-06 19:24:00 Test Item Value Reference Range Interpretation Comments Eosinophils # (test code 0.2 See_Comment [A utomated message] The = Eosinophils #) system whic h generated this result tra nsmitted reference range : <=0.5. The reference r ozzy was not used to int erpret this result as normal/abnormal . [facility] HospitalNvzzmidBBOTFPSEQJ2256-74-29 19:24:00 Test Item Value Reference Range Interpretation Comments Hypochrom (test code = 1+ (08/24/14 1:24 PM) Hypochrom) [facility] HospitalIbsjeedUXFVRNPEKT9863-90-56 19:24:00 Test Item Value Reference Range Interpretation Comments Lymphocytes # (test code = Lymphocytes 2.8 1.0-5.5 #) [facility] HospitalTmgugkvTINBMHSVHJ4213-69-69 19:24:00 Test Item Value Reference Range Interpretation Comments Segs-Bands # (test code = Segs-Bands #) 8.1 1.5-8.1 [facility] HospitalPwwygllUUDIMAWDHL6001-19-86 19:24:00 Test Item Value Reference Range Interpretation Comments Monocytes # (test code 0.2 See_Comment [Aut omated message] The = Monocytes #) system which generated this result tra nsmitted reference range : <=0.8. The reference r ozzy was not used to int erpret this result as normal/abnormal . [facility] HospitalWvtvromTVWMWOFRUX2326-65-59 19:24:00 Test Item Value Reference Range Interpretation Comments Lymphocytes (test code = Lymphocytes) 24.5 20.0-40.0 [facility] HospitalMmvizmhTCSBGBCYLG7052-92-78 19:24:00 Test Item Value Reference Range Interpretation Comments Segs (test code = Segs) 71.8 45.0-75.0 [facility] HospitalAmeswzuPRIDDNSRWZ5151-72-70 19:24:00 Test Item Value Reference Range Interpretation Comments Basophils (test code = 0.6 See_Comment [Aut omated message] The Basophils) system which ge nerated this result tra nsmitted reference range : <=1.0. The reference r ozzy was not used to int erpret this result as normal/abnormal . [facility] HospitalImtywmySZTUBVZEJE3836-65-15 19:24:00 Test Item Value Reference Range Interpretation Comments Monocytes (test code = Monocytes) 1.5 2.0-12.0 [facility] HospitalTgurkcaJJNASQTZWR8886-85-85 19:24:00 Test Item Value Reference Range Interpretation Comments Eosinophils (test code = 1.6 See_Comment [A utomated message] The Eosinophils) system which ge nerated this result tra nsmitted reference range : <=4.0. The reference r ozzy was not used to int erpret this result as normal/abnormal . [facility] DallasJqebutoLHNYJDSTXE5851-62-96 19:24:00 Test Item Value Reference Range Interpretation Comments Plt Morph (test code = Normal (08/24/14 1:24 Plt Morph) PM) [facility] AND [id number] 19:24:00 Test Item Value Reference Range Interpretation Comments UA Sq Epi (test code = UA Sq Occasional /LPF Epi) [facility] AND [id number] 19:24:00 Test Item Value Reference Range Interpretation Comments UA Bacteria (test code = UA Occasional /HPF Bacteria) [facility] AND [id number] 19:24:00 Test Item Value Reference Range Interpretation Comments UA Mucus (test code = None Seen (08/24/14 UA Mucus) 1:24 PM) [facility] AND [id number] 19:24:00 Test Item Value Reference Range Interpretation Comments UA WBC (test code = UA WBC) 0-2 /HPF [facility] AND [id number] 19:24:00 Test Item Value Reference Range Interpretation Comments UA RBC (test code = 0-2 /HPF See_Comment [Automa gaye message] The UA RBC) system which ge nerated this result tra nsmitted reference range : <=2. The reference range was not used to interpr et this result as satish l/abnormal. [facility] AND [id number] 19:24:00 Test Item Value Reference Range Interpretation Comments UA Leuk Est (test Moderate *ABN*(08/24/14 code = UA Leuk Est) 1:24 PM) [facility] AND [id number] 19:24:00 Test Item Value Reference Range Interpretation Comments UA Nitrite (test code Negative (08/24/14 1:24 = UA Nitrite) PM) [facility] AND [id number] 19:24:00 Test Item Value Reference Range Interpretation Comments UA Urobilinogen (test code = UA 0.2 0.1-1.0 Urobilinogen) [facility] AND [id number] 19:24:00 Test Item Value Reference Range Interpretation Comments UA Ketones (test code Negative *NA*(08/24/14 = UA Ketones) 1:24 PM) [facility] AND [id number] 19:24:00 Test Item Value Reference Range Interpretation Comments UA Blood (test code = Negative (08/24/14 1:24 UA Blood) PM) [facility] AND [id number] 19:24:00 Test Item Value Reference Range Interpretation Comments UA Bili (test code = Negative *NA*(08/24/14 UA Bili) 1:24 PM) [facility] AND [id number] 19:24:00 Test Item Value Reference Range Interpretation Comments UA Color (test code = Yellow *NA*(08/24/14 UA Color) 1:24 PM) [facility] AND [id number] 19:24:00 Test Item Value Reference Range Interpretation Comments UA Glucose (test code Negative (08/24/14 1:24 = UA Glucose) PM) [facility] AND [id number] 19:24:00 Test Item Value Reference Range Interpretation Comments UA Protein (test code Negative (08/24/14 1:24 = UA Protein) PM) [facility] AND [id number] 19:24:00 Test Item Value Reference Range Interpretation Comments UA pH (test code = UA pH) 6.0 1 5.0-8.0 [facility] AND [id number] 19:24:00 Test Item Value Reference Range Interpretation Comments UA Spec Grav (test code *NA*(08/24/14 1:24 PM) = UA Spec Grav) [facility] AND [id number] 19:24:00 Test Item Value Reference Range Interpretation Comments UA Turbidity (test code = Clear (08/24/14 1:24 UA Turbidity) PM) [facility] [id number] 19:24:00 Test Item Value Reference Range Interpretation [...] Globulin (test code = Globulin) 4.2 2.0-4.0 [facility]CxqmovgACUHZODIRAYZP4322-88-01 19:24:00 Test Item Value Reference Range Interpretation Comments S Preg (test code = S Negative *NA*(08/24/14 Preg) 1:24 PM) [facility]DeaykroAYECEMAGCZ0085-30-26 19:24:00 Test Item Value Reference Range Interpretation Comments WBC (test code = WBC) 11.3 3.7-10.4 [facility] HospitalHnuaqgeIAODXUESSB9371-46-43 19:24:00 Test Item Value Reference Range Interpretation Comments RBC (test code = RBC) 4.75 4.20-5.40 [facility] HospitalVlohhgcFUEKMZALKD6977-09-02 19:24:00 Test Item Value Reference Range Interpretation Comments Platelet (test code = Platelet) 402 133-450 [facility] HospitalOypstugBYCGAUKWYE0210-92-90 19:24:00 Test Item Value Reference Range Interpretation Comments MCV (test code = MCV) 89.9 80.0-98.0 [facility] HospitalEadntliZCOMNCVQNF9588-14-55 19:24:00 Test Item Value Reference Range Interpretation Comments Hct (test code = Hct) 42.7 36.0-48.0 [facility] HospitalLgdavqxHAWQEVGEDF8826-74-94 19:24:00 Test Item Value Reference Range Interpretation Comments Hgb (test code = Hgb) 14.5 12.0-16.0 [facility] HospitalMgdtqwkTELVVSNYKA3696-93-94 19:24:00 Test Item Value Reference Range Interpretation Comments RDW (test code = RDW) 13.5 11.5-14.5 [facility] HospitalCjiheziYQZYUJTWGH4397-82-21 19:24:00 Test Item Value Reference Range Interpretation Comments MCHC (test code = MCHC) 34.0 32.0-36.0 [facility] HospitalWjchgkrGHTRDOUAAR8370-13-93 19:24:00 Test Item Value Reference Range Interpretation Comments MCH (test code = MCH) 30.6 pg 27.0-31.0 [facility] HospitalBftvsjnOHXCPGXSBS1512-60-90 19:24:00 Test Item Value Reference Range Interpretation Comments MPV (test code = MPV) 8.1 7.4-10.4 [facility] HospitalEfikniiWOXDXOBDVZ6003-28-45 19:24:00 Test Item Value Reference Range Interpretation Comments Stomatocyte (test code = Stomatocyte) Slight [facility] HospitalKzgylfsYOCHFKEOSG3991-09-61 19:24:00 Test Item Value Reference Range Interpretation Comments Basophils # (test code 0.1 See_Comment [Aut omated message] The = Basophils #) system which generated this result tra nsmitted reference range : <=0.2. The reference r ozzy was not used to int erpret this result as normal/abnormal . [facility] HospitalOaoumgjGVCIOESSXX1085-55-37 19:24:00 Test Item Value Reference Range Interpretation Comments Eosinophils # (test code 0.2 See_Comment [A utomated message] The = Eosinophils #) system whic h generated this result tra nsmitted reference range : <=0.5. The reference r ozzy was not used to int erpret this result as normal/abnormal . [facility] HospitalKmohrkoUAVRHKGSRA1136-85-04 19:24:00 Test Item Value Reference Range Interpretation Comments Hypochrom (test code = 1+ (08/24/14 1:24 PM) Hypochrom) [facility] HospitalGsryhysEKFCYZHYEA3179-85-43 19:24:00 Test Item Value Reference Range Interpretation Comments Lymphocytes # (test code = Lymphocytes 2.8 1.0-5.5 #) [facility] HospitalKdcchtaGOLILMFIKX9319-63-99 19:24:00 Test Item Value Reference Range Interpretation Comments Segs-Bands # (test code = Segs-Bands #) 8.1 1.5-8.1 [facility] HospitalHvyuwraIQDOZGAYIW9338-96-96 19:24:00 Test Item Value Reference Range Interpretation Comments Monocytes # (test code 0.2 See_Comment [Aut omated message] The = Monocytes #) system which generated this result tra nsmitted reference range : <=0.8. The reference r ozzy was not used to int erpret this result as normal/abnormal . [facility] HospitalKjawrkcQSXAALBOEA3475-69-54 19:24:00 Test Item Value Reference Range Interpretation Comments Lymphocytes (test code = Lymphocytes) 24.5 20.0-40.0 [facility] HospitalEadkywqNMAOANESIJ5610-22-84 19:24:00 Test Item Value Reference Range Interpretation Comments Segs (test code = Segs) 71.8 45.0-75.0 [facility] HospitalIzlvwatSVMAVJRUYA5684-20-74 19:24:00 Test Item Value Reference Range Interpretation Comments Basophils (test code = 0.6 See_Comment [Aut omated message] The Basophils) system which ge nerated this result tra nsmitted reference range : <=1.0. The reference r ozzy was not used to int erpret this result as normal/abnormal . [facility] HospitalNcrngiqLTMIFYXUPK1504-82-79 19:24:00 Test Item Value Reference Range Interpretation Comments Monocytes (test code = Monocytes) 1.5 2.0-12.0 [facility] HospitalNmwunaxODROUCNAKF6876-59-56 19:24:00 Test Item Value Reference Range Interpretation Comments Eosinophils (test code = 1.6 See_Comment [A utomated message] The Eosinophils) system which ge nerated this result tra nsmitted reference range : <=4.0. The reference r ozzy was not used to int erpret this result as normal/abnormal . [facility] HospitalNcaapuiPJJAEVVEPN7340-32-23 19:24:00 Test Item Value Reference Range Interpretation Comments Plt Morph (test code = Normal (08/24/14 1:24 Plt Morph) PM) [facility]2015-01-12 19:24:00 Test Item Value Reference Range Interpretation Comments UA Sq Epi (test code = UA Sq Occasional /LPF Epi) [facility] AND [id number] 19:24:00 Test Item Value Reference Range Interpretation Comments UA Bacteria (test code = UA Occasional /HPF Bacteria) [facility] AND [id number] 19:24:00 Test Item Value Reference Range Interpretation Comments UA Mucus (test code = None Seen (08/24/14 UA Mucus) 1:24 PM) [facility] AND [id number] 19:24:00 Test Item Value Reference Range Interpretation Comments UA WBC (test code = UA WBC) 0-2 /HPF [facility] AND [id number] 19:24:00 Test Item Value Reference Range Interpretation Comments UA RBC (test code = 0-2 /HPF See_Comment [Automa gaye message] The UA RBC) system which ge nerated this result tra nsmitted reference range : <=2. The reference range was not used to interpr et this result as satish l/abnormal. [facility] AND [id number] 19:24:00 Test Item Value Reference Range Interpretation Comments UA Leuk Est (test Moderate *ABN*(08/24/14 code = UA Leuk Est) 1:24 PM) [facility] AND [id number] 19:24:00 Test Item Value Reference Range Interpretation Comments UA Nitrite (test code Negative (08/24/14 1:24 = UA Nitrite) PM) [facility] AND [id number] 19:24:00 Test Item Value Reference Range Interpretation Comments UA Urobilinogen (test code = UA 0.2 0.1-1.0 Urobilinogen) [facility] AND [id number] 19:24:00 Test Item Value Reference Range Interpretation Comments UA Ketones (test code Negative *NA*(08/24/14 = UA Ketones) 1:24 PM) [facility] AND [id number] 19:24:00 Test Item Value Reference Range Interpretation Comments UA Blood (test code = Negative (08/24/14 1:24 UA Blood) PM) [facility] AND [id number] 19:24:00 Test Item Value Reference Range Interpretation Comments UA Bili (test code = Negative *NA*(08/24/14 UA Bili) 1:24 PM) [facility] AND [id number] 19:24:00 Test Item Value Reference Range Interpretation Comments UA Color (test code = Yellow *NA*(08/24/14 UA Color) 1:24 PM) [facility] AND [id number] 19:24:00 Test Item Value Reference Range Interpretation Comments UA Glucose (test code Negative (08/24/14 1:24 = UA Glucose) PM) [facility] [id number] 19:24:00 Test Item Value Reference Range Interpretation Comments UA Protein (test code Negative (08/24/14 1:24 = UA Protein) PM) [facility] [id number] 19:24:00 Test Item Value Reference Range Interpretation Comments UA pH (test code = UA pH) 6.0 1 5.0-8.0 [facility] AND [id number] 19:24:00 Test Item Value Reference Range Interpretation Comments UA Spec Grav (test code *NA*(08/24/14 1:24 PM) = UA Spec Grav) [facility] AND [id number] 19:24:00 Test Item Value Reference Range Interpretation [...] (test code = A/G Ratio) 0.9 0.7-1.6 [place] [id number] 19:24:00 Test Item Value Reference Range Interpretation Comments AGAP (test code = AGAP) 6.9 10.0-20.0 [facility] [id number] 19:24:00 Test Item Value Reference Range Interpretation Comments B/C Ratio (test code = B/C Ratio) 10 6-25 [facility] [id number] 19:24:00 Test Item Value Reference Range Interpretation Comments Globulin (test code = Globulin) 4.2 2.0-4.0 [facility] CenterIsqtvenXVAJMRABBOAVO9240-44-17 19:24:00 Test Item Value Reference Range Interpretation Comments S Preg (test code = S Negative *NA*(08/24/14 Preg) 1:24 PM) [facility] HospitalYnfuhutUZLXYIKABE2749-19-74 19:24:00 Test Item Value Reference Range Interpretation Comments WBC (test code = WBC) 11.3 3.7-10.4 [facility] HospitalYfuucqgAGVBSOZLBM8345-03-22 19:24:00 Test Item Value Reference Range Interpretation Comments RBC (test code = RBC) 4.75 4.20-5.40 [facility] HospitalOqdtisxOLTRRORKNX0366-30-45 19:24:00 Test Item Value Reference Range Interpretation Comments Platelet (test code = Platelet) 402 133-450 [facility] HospitalAcwgkbmZAGKSLOHXH2994-39-71 19:24:00 Test Item Value Reference Range Interpretation Comments MCV (test code = MCV) 89.9 80.0-98.0 [facility] HospitalNsuyfefWZJFTOABYR3210-66-93 19:24:00 Test Item Value Reference Range Interpretation Comments Hct (test code = Hct) 42.7 36.0-48.0 [facility] HospitalRoqjoipDQQYVEUAVV5275-00-99 19:24:00 Test Item Value Reference Range Interpretation Comments Hgb (test code = Hgb) 14.5 12.0-16.0 [facility] HospitalMwavqanUJCCMCXBPB0642-67-16 19:24:00 Test Item Value Reference Range Interpretation Comments RDW (test code = RDW) 13.5 11.5-14.5 [facility] HospitalOgtfnfvDHTRYRREVW9832-85-30 19:24:00 Test Item Value Reference Range Interpretation Comments MCHC (test code = MCHC) 34.0 32.0-36.0 [facility] HospitalLvbbxitRTGZKIOJXK5578-16-42 19:24:00 Test Item Value Reference Range Interpretation Comments MCH (test code = MCH) 30.6 pg 27.0-31.0 [facility] HospitalTtltxlqKXBMHSUSEI1614-40-77 19:24:00 Test Item Value Reference Range Interpretation Comments MPV (test code = MPV) 8.1 7.4-10.4 [facility] HospitalYwopebkWNQWFAXDFV7153-10-54 19:24:00 Test Item Value Reference Range Interpretation Comments Stomatocyte (test code = Stomatocyte) Slight [facility] HospitalJtnvidxZZFMVSAKYJ9970-41-55 19:24:00 Test Item Value Reference Range Interpretation Comments Basophils # (test code 0.1 See_Comment [Aut omated message] The = Basophils #) system which generated this result tra nsmitted reference range : <=0.2. The reference r ozzy was not used to int erpret this result as normal/abnormal . [facility] HospitalZgzhjdbCXMQVVPYIH7888-76-20 19:24:00 Test Item Value Reference Range Interpretation Comments Eosinophils # (test code 0.2 See_Comment [A utomated message] The = Eosinophils #) system whic h generated this result tra nsmitted reference range : <=0.5. The reference r ozzy was not used to int erpret this result as normal/abnormal . [facility] HospitalVjxlnvaRHZNCSOLUH1124-82-94 19:24:00 Test Item Value Reference Range Interpretation Comments Hypochrom (test code = 1+ (08/24/14 1:24 PM) Hypochrom) [facility] HospitalQaasdrrAYCDKMORIP1530-04-23 19:24:00 Test Item Value Reference Range Interpretation Comments Lymphocytes # (test code = Lymphocytes 2.8 1.0-5.5 #) [facility] HospitalGrzndueCPUBUAPYOJ8962-66-47 19:24:00 Test Item Value Reference Range Interpretation Comments Segs-Bands # (test code = Segs-Bands #) 8.1 1.5-8.1 [facility] HospitalEdxxihtGKZZCRWMNC2208-86-93 19:24:00 Test Item Value Reference Range Interpretation Comments Monocytes # (test code 0.2 See_Comment [Aut omated message] The = Monocytes #) system which generated this result tra nsmitted reference range : <=0.8. The reference r ozzy was not used to int erpret this result as normal/abnormal . [facility] HospitalKxvmhhsALDRIYNNKK7660-69-35 19:24:00 Test Item Value Reference Range Interpretation Comments Lymphocytes (test code = Lymphocytes) 24.5 20.0-40.0 [facility] HospitalNmfguksDVLZOKDUBU2302-32-40 19:24:00 Test Item Value Reference Range Interpretation Comments Segs (test code = Segs) 71.8 45.0-75.0 [facility] HospitalSxcyqttDIHDGFPNZH5051-30-96 19:24:00 Test Item Value Reference Range Interpretation Comments Basophils (test code = 0.6 See_Comment [Aut omated message] The Basophils) system which ge nerated this result tra nsmitted reference range : <=1.0. The reference r ozzy was not used to int erpret this result as normal/abnormal . [facility] HospitalLhaavqySWGXQQRHFX7680-25-58 19:24:00 Test Item Value Reference Range Interpretation Comments Monocytes (test code = Monocytes) 1.5 2.0-12.0 [facility] HospitalTxhitksGERLYNDIIH1789-33-04 19:24:00 Test Item Value Reference Range Interpretation Comments Eosinophils (test code = 1.6 See_Comment [A utomated message] The Eosinophils) system which ge nerated this result tra nsmitted reference range : <=4.0. The reference r ozzy was not used to int erpret this result as normal/abnormal . [facility] HospitalCdqnfrbSHUEWFWJSN5232-23-51 19:24:00 Test Item Value Reference Range Interpretation Comments Plt Morph (test code = Normal (08/24/14 1:24 Plt Morph) PM) [facility] [id number] 19:24:00 Test Item Value Reference Range Interpretation Comments UA Sq Epi (test code = UA Sq Occasional /LPF Epi) [facility] AND [id number] 19:24:00 Test Item Value Reference Range Interpretation Comments UA Bacteria (test code = UA Occasional /HPF Bacteria) [facility] AND [id number] 19:24:00 Test Item Value Reference Range Interpretation Comments UA Mucus (test code = None Seen (08/24/14 UA Mucus) 1:24 PM) [facility] AND [id number] 19:24:00 Test Item Value Reference Range Interpretation Comments UA WBC (test code = UA WBC) 0-2 /HPF [facility] AND [id number] 19:24:00 Test Item Value Reference Range Interpretation Comments UA RBC (test code = 0-2 /HPF See_Comment [Automa gaye message] The UA RBC) system which ge nerated this result tra nsmitted reference range : <=2. The reference range was not used to interpr et this result as staish l/abnormal. [facility] AND [id number] 19:24:00 Test Item Value Reference Range Interpretation Comments UA Leuk Est (test Moderate *ABN*(08/24/14 code = UA Leuk Est) 1:24 PM) [facility] AND [id number] 19:24:00 Test Item Value Reference Range Interpretation Comments UA Nitrite (test code Negative (08/24/14 1:24 = UA Nitrite) PM) [facility] AND [id number] 19:24:00 Test Item Value Reference Range Interpretation Comments UA Urobilinogen (test code = UA 0.2 0.1-1.0 Urobilinogen) [facility] AND [id number] 19:24:00 Test Item Value Reference Range Interpretation Comments UA Ketones (test code Negative *NA*(08/24/14 = UA Ketones) 1:24 PM) [facility] [id number] 19:24:00 Test Item Value Reference Range Interpretation Comments UA Blood (test code = Negative (08/24/14 1:24 UA Blood) PM) [facility] AND [id number] 19:24:00 Test Item Value Reference Range Interpretation Comments UA Bili (test code = Negative *NA*(08/24/14 UA Bili) 1:24 PM) [facility] [id number] 19:24:00 Test Item Value Reference Range Interpretation Comments UA Color (test code = Yellow *NA*(08/24/14 UA Color) 1:24 PM) [facility] AND [id number] 19:24:00 Test Item Value Reference Range Interpretation Comments UA Glucose (test code Negative (08/24/14 1:24 = UA Glucose) PM) [facility] AND [id number] 19:24:00 Test Item Value Reference Range Interpretation Comments UA Protein (test code Negative (08/24/14 1:24 = UA Protein) PM) [facility] [id number] 19:24:00 Test Item Value Reference Range Interpretation Comments UA pH (test code = UA pH) 6.0 1 5.0-8.0 [facility] [id number] 19:24:00 Test Item Value Reference Range Interpretation Comments UA Spec Grav (test code *NA*(08/24/14 1:24 PM) = UA Spec Grav) [facility] [id number] 19:24:00 Test Item Value Reference Range Interpretation [...] (test code = B/C Ratio) 10 6-25 [place] [id number] 19:24:00 Test Item Value Reference Range Interpretation Comments Globulin (test code = Globulin) 4.2 2.0-4.0 [facility]HuibgctATGBZBSBHXOCD3270-22-22 19:24:00 Test Item Value Reference Range Interpretation Comments S Preg (test code = S Negative *NA*(08/24/14 Preg) 1:24 PM) [facility] HospitalMqfwjawPFKFLYRICX0222-08-31 19:24:00 Test Item Value Reference Range Interpretation Comments WBC (test code = WBC) 11.3 3.7-10.4 [facility] HospitalBuoikccGHZHZIGYQK9740-13-23 19:24:00 Test Item Value Reference Range Interpretation Comments RBC (test code = RBC) 4.75 4.20-5.40 [facility] HospitalDijcpfiESFEHEEFIT4711-95-07 19:24:00 Test Item Value Reference Range Interpretation Comments Platelet (test code = Platelet) 402 133-450 [facility] HospitalQqrziprDBXKSKOBRR3873-45-46 19:24:00 Test Item Value Reference Range Interpretation Comments MCV (test code = MCV) 89.9 80.0-98.0 [facility] HospitalDzmnbgkXLRKOYDAWK9386-24-82 19:24:00 Test Item Value Reference Range Interpretation Comments Hct (test code = Hct) 42.7 36.0-48.0 [facility] HospitalRsdyzrzWUPHXMCCDC9936-87-56 19:24:00 Test Item Value Reference Range Interpretation Comments Hgb (test code = Hgb) 14.5 12.0-16.0 [facility] HospitalZwthegzFJVXYSNCIJ5489-48-35 19:24:00 Test Item Value Reference Range Interpretation Comments RDW (test code = RDW) 13.5 11.5-14.5 [facility] HospitalKonfqzxIQUQVFAOQA1517-62-51 19:24:00 Test Item Value Reference Range Interpretation Comments MCHC (test code = MCHC) 34.0 32.0-36.0 [facility] HospitalDqcfgwuTSSTADDRYJ7649-15-81 19:24:00 Test Item Value Reference Range Interpretation Comments MCH (test code = MCH) 30.6 pg 27.0-31.0 [facility] HospitalLufmznfGUEQPOTITG0810-55-25 19:24:00 Test Item Value Reference Range Interpretation Comments MPV (test code = MPV) 8.1 7.4-10.4 [facility] HospitalGsfgtyhSKGEHSANVU5631-82-30 19:24:00 Test Item Value Reference Range Interpretation Comments Stomatocyte (test code = Stomatocyte) Slight [facility] HospitalEgvfzzfDDWNRSFTAK9288-07-94 19:24:00 Test Item Value Reference Range Interpretation Comments Basophils # (test code 0.1 See_Comment [Aut omated message] The = Basophils #) system which generated this result tra nsmitted reference range : <=0.2. The reference r ozzy was not used to int erpret this result as normal/abnormal . [facility] HospitalRlflnthMQLCMPOOKZ6436-26-42 19:24:00 Test Item Value Reference Range Interpretation Comments Eosinophils # (test code 0.2 See_Comment [A utomated message] The = Eosinophils #) system whic h generated this result tra nsmitted reference range : <=0.5. The reference r ozzy was not used to int erpret this result as normal/abnormal . [facility] HospitalTjqgazjWDKKSSOUGG6258-69-34 19:24:00 Test Item Value Reference Range Interpretation Comments Hypochrom (test code = 1+ (08/24/14 1:24 PM) Hypochrom) [facility] HospitalGcjbswmHZLDWMEFXM8051-74-66 19:24:00 Test Item Value Reference Range Interpretation Comments Lymphocytes # (test code = Lymphocytes 2.8 1.0-5.5 #) [facility] HospitalMcsnnnrSZJGIZDEBQ9414-04-05 19:24:00 Test Item Value Reference Range Interpretation Comments Segs-Bands # (test code = Segs-Bands #) 8.1 1.5-8.1 [facility] HospitalKovroyuOKVXLDCQVQ4650-65-21 19:24:00 Test Item Value Reference Range Interpretation Comments Monocytes # (test code 0.2 See_Comment [Aut omated message] The = Monocytes #) system which generated this result tra nsmitted reference range : <=0.8. The reference r ozzy was not used to int erpret this result as normal/abnormal . [facility] HospitalFfjwcegXVGDTJEPKM4842-61-21 19:24:00 Test Item Value Reference Range Interpretation Comments Lymphocytes (test code = Lymphocytes) 24.5 20.0-40.0 [facility] HospitalUfbgutiZUKZIWTAXV9353-27-02 19:24:00 Test Item Value Reference Range Interpretation Comments Segs (test code = Segs) 71.8 45.0-75.0 [facility] HospitalAiggfxrWOAAXRTWEL4551-80-58 19:24:00 Test Item Value Reference Range Interpretation Comments Basophils (test code = 0.6 See_Comment [Aut omated message] The Basophils) system which ge nerated this result tra nsmitted reference range : <=1.0. The reference r ozzy was not used to int erpret this result as normal/abnormal . [facility] HospitalIbwsahsUWYWFTXGZW3366-76-87 19:24:00 Test Item Value Reference Range Interpretation Comments Monocytes (test code = Monocytes) 1.5 2.0-12.0 [facility] HospitalHxpmpxvTSXYYCSVYF8625-02-08 19:24:00 Test Item Value Reference Range Interpretation Comments Eosinophils (test code = 1.6 See_Comment [A utomated message] The Eosinophils) system which ge nerated this result tra nsmitted reference range : <=4.0. The reference r ozzy was not used to int erpret this result as normal/abnormal . [facility] HospitalAtegrymJNYHBXDIPD4620-31-05 19:24:00 Test Item Value Reference Range Interpretation Comments Plt Morph (test code = Normal (08/24/14 1:24 Plt Morph) PM) [facility] [id number] 19:24:00 Test Item Value Reference Range Interpretation Comments UA Sq Epi (test code = UA Sq Occasional /LPF Epi) [facility] [facility] [id number] 19:24:00 Test Item Value Reference Range Interpretation Comments UA Bacteria (test code = UA Occasional /HPF Bacteria) [facility] AND [id number] 19:24:00 Test Item Value Reference Range Interpretation Comments UA Mucus (test code = None Seen (08/24/14 UA Mucus) 1:24 PM) [facility] AND [id number] 19:24:00 Test Item Value Reference Range Interpretation Comments UA WBC (test code = UA WBC) 0-2 /HPF [facility] AND [id number] 19:24:00 Test Item Value Reference Range Interpretation Comments UA RBC (test code = 0-2 /HPF See_Comment [Automa gaye message] The UA RBC) system which ge nerated this result tra nsmitted reference range : <=2. The reference range was not used to interpr et this result as satish l/abnormal. [facility] AND [id number] 19:24:00 Test Item Value Reference Range Interpretation Comments UA Leuk Est (test Moderate *ABN*(08/24/14 code = UA Leuk Est) 1:24 PM) [facility] AND [id number] 19:24:00 Test Item Value Reference Range Interpretation Comments UA Nitrite (test code Negative (08/24/14 1:24 = [facility] Nitrite) PM) [facility] [id number] 19:24:00 Test Item Value Reference Range Interpretation Comments UA Urobilinogen (test code = UA 0.2 0.1-1.0 Urobilinogen) [facility] [id number] 19:24:00 Test Item Value Reference Range Interpretation Comments UA Ketones (test code Negative *NA*(08/24/14 = UA Ketones) 1:24 PM) [facility] [id number] 19:24:00 Test Item Value Reference Range Interpretation Comments UA Blood (test code = Negative (08/24/14 1:24 UA Blood) PM) [facility] [id number] 19:24:00 Test Item Value Reference Range Interpretation Comments UA Bili (test code = Negative *NA*(08/24/14 UA Bili) 1:24 PM) [facility] [id number] 19:24:00 Test Item Value Reference Range Interpretation Comments UA Color (test code = Yellow *NA*(08/24/14 UA Color) 1:24 PM) [facility] [id number] 19:24:00 Test Item Value Reference Range Interpretation Comments UA Glucose (test code Negative (08/24/14 1:24 = UA Glucose) PM) [facility] [id number] 19:24:00 Test Item Value Reference Range Interpretation Comments UA Protein (test code Negative (08/24/14 1:24 = UA Protein) PM) [facility] [id number] 19:24:00 Test Item Value Reference Range Interpretation Comments UA pH (test code = UA pH) 6.0 1 5.0-8.0 [facility] [id number] 19:24:00 Test Item Value Reference Range Interpretation Comments UA Spec Grav (test code *NA*(08/24/14 1:24 PM) = UA Spec Grav) [facility] [id number] 19:24:00 Test Item Value Reference Range Interpretation [...] (test code = A/G Ratio) 0.9 0.7-1.6 [place] [id number] 19:24:00 Test Item Value Reference Range Interpretation Comments AGAP (test code = AGAP) 6.9 10.0-20.0 [facility]2015-01-12 19:24:00 Test Item Value Reference Range Interpretation Comments B/C Ratio (test code = B/C Ratio) 10 6-25 [facility]2015-01-12 19:24:00 Test Item Value Reference Range Interpretation Comments Globulin (test code = Globulin) 4.2 2.0-4.0 [facility]M[id number] 19:24:00 Test Item Value Reference Range Interpretation Comments S Preg (test code = S Negative *NA*(08/24/14 Preg) 1:24 PM) [facility] H[id number] 19:24:00 Test Item Value Reference Range Interpretation Comments WBC (test code = WBC) 11.3 3.7-10.4 [facility] H[id number] 19:24:00 Test Item Value Reference Range Interpretation Comments RBC (test code = RBC) 4.75 4.20-5.40 [facility] H[id number] 19:24:00 Test Item Value Reference Range Interpretation Comments Platelet (test code = Platelet) 402 133-450 [facility] HospitalLnsnylwRLZSZSFSCT7537-63-01 19:24:00 Test Item Value Reference Range Interpretation Comments MCV (test code = MCV) 89.9 80.0-98.0 [place] [id number] 19:24:00 Test Item Value Reference Range Interpretation Comments Hct (test code = Hct) 42.7 36.0-48.0 [facility] Hospit[id number] 19:24:00 Test Item Value Reference Range Interpretation Comments Hgb (test code = Hgb) 14.5 12.0-16.0 [facility] HospitalYmcwikoYPPJPPHBVF3641-66-51 19:24:00 Test Item Value Reference Range Interpretation Comments RDW (test code = RDW) 13.5 11.5-14.5 [facility] Hospit[id number] 19:24:00 Test Item Value Reference Range Interpretation Comments MCHC (test code = MCHC) 34.0 32.0-36.0 [facility] Hos[id number] 19:24:00 Test Item Value Reference Range Interpretation Comments MCH (test code = MCH) 30.6 pg 27.0-31.0 [facility] H[id number] 19:24:00 Test Item Value Reference Range Interpretation Comments MPV (test code = MPV) 8.1 7.4-10.4 [facility] HospitalKrmulyvCNVRLMQSBZ4804-29-27 19:24:00 Test Item Value Reference Range Interpretation Comments Stomatocyte (test code = Stomatocyte) Slight [facility] H[id number] 19:24:00 Test Item Value Reference Range Interpretation Comments Basophils # (test code 0.1 See_Comment [Aut omated message] The = Basophils #) system which generated this result tra nsmitted reference range : <=0.2. The reference r ozzy was not used to int erpret this result as normal/abnormal . [facility] Hos[id number] 19:24:00 Test Item Value Reference Range Interpretation Comments Eosinophils # (test code 0.2 See_Comment [A utomated message] The = Eosinophils #) system whic h generated this result tra nsmitted reference range : <=0.5. The reference r ozzy was not used to int erpret this result as normal/abnormal . [facility] Ho[id number] 19:24:00 Test Item Value Reference Range Interpretation Comments Hypochrom (test code = 1+ (08/24/14 1:24 PM) Hypochrom) [facility] H[id number] 19:24:00 Test Item Value Reference Range Interpretation Comments Lymphocytes # (test code = Lymphocytes 2.8 1.0-5.5 #) [facility] HospitalIgpgxpfORFFIHTHCV8033-04-63 19:24:00 Test Item Value Reference Range Interpretation Comments Segs-Bands # (test code = Segs-Bands #) 8.1 1.5-8.1 [place] [id number] 19:24:00 Test Item Value Reference Range Interpretation Comments Monocytes # (test code 0.2 See_Comment [Aut omated message] The = Monocytes #) system which generated this result tra nsmitted reference range : <=0.8. The reference r ozzy was not used to int erpret this result as normal/abnormal . [facility] Hosp[id number] 19:24:00 Test Item Value Reference Range Interpretation Comments Lymphocytes (test code = Lymphocytes) 24.5 20.0-40.0 [facility] HospitalOlebxriNYDKTVJCTV1718-92-75 19:24:00 Test Item Value Reference Range Interpretation Comments Segs (test code = Segs) 71.8 45.0-75.0 [facility] HospitalHqsgzlyLRNYEGCCFP2556-96-67 19:24:00 Test Item Value Reference Range Interpretation Comments Basophils (test code = 0.6 See_Comment [Aut omated message] The Basophils) system which ge nerated this result tra nsmitted reference range : <=1.0. The reference r ozzy was not used to int erpret this result as normal/abnormal . [facility] HospitalFzmzgblTQTOQETDJJ4407-16-82 19:24:00 Test Item Value Reference Range Interpretation Comments Monocytes (test code = Monocytes) 1.5 2.0-12.0 [facility] HospitalCehopbqAREXNSRPCJ9351-67-87 19:24:00 Test Item Value Reference Range Interpretation Comments Eosinophils (test code = 1.6 See_Comment [A utomated message] The Eosinophils) system which ge nerated this result tra nsmitted reference range : <=4.0. The reference r ozzy was not used to int erpret this result as normal/abnormal . [facility] [id number] 19:24:00 Test Item Value Reference Range Interpretation Comments Plt Morph (test code = Normal (08/24/14 1:24 Plt Morph) PM) [facility] AND [id number] 19:24:00 Test Item Value Reference Range Interpretation Comments UA Sq Epi (test code = UA Sq Occasional /LPF Epi) [facility] AND [id number] 19:24:00 Test Item Value Reference Range Interpretation Comments UA Bacteria (test code = UA Occasional /HPF Bacteria) [facility] AND [id number] 19:24:00 Test Item Value Reference Range Interpretation Comments UA Mucus (test code = None Seen (08/24/14 UA Mucus) 1:24 PM) [facility] AND [id number] 19:24:00 Test Item Value Reference Range Interpretation Comments UA WBC (test code = UA WBC) 0-2 /HPF [facility] AND [id number] 19:24:00 Test Item Value Reference Range Interpretation Comments UA RBC (test code = 0-2 /HPF See_Comment [Automa gaye message] The UA RBC) system which ge nerated this result tra nsmitted reference range : <=2. The reference range was not used to interpr et this result as satish l/abnormal. [facility] AND [id number] 19:24:00 Test Item Value Reference Range Interpretation Comments UA Leuk Est (test Moderate *ABN*(08/24/14 code = UA Leuk Est) 1:24 PM) [facility] AND [id number] 19:24:00 Test Item Value Reference Range Interpretation Comments UA Nitrite (test code Negative (08/24/14 1:24 = UA Nitrite) PM) [facility] AND [id number] 19:24:00 Test Item Value Reference Range Interpretation Comments UA Urobilinogen (test code = UA 0.2 0.1-1.0 Urobilinogen) [facility] AND [id number] 19:24:00 Test Item Value Reference Range Interpretation Comments UA Ketones (test code Negative *NA*(08/24/14 = UA Ketones) 1:24 PM) [facility] AND [id number] 19:24:00 Test Item Value Reference Range Interpretation Comments UA Blood (test code = Negative (08/24/14 1:24 UA Blood) PM) [facility] AND [id number] 19:24:00 Test Item Value Reference Range Interpretation Comments UA Bili (test code = Negative *NA*(08/24/14 UA Bili) 1:24 PM) [facility] AND [id number] 19:24:00 Test Item Value Reference Range Interpretation Comments UA Color (test code = Yellow *NA*(08/24/14 UA Color) 1:24 PM) [facility] AND [id number] 19:24:00 Test Item Value Reference Range Interpretation Comments UA Glucose (test code Negative (08/24/14 1:24 = UA Glucose) PM) [facility] AND [id number] 19:24:00 Test Item Value Reference Range Interpretation Comments UA Protein (test code Negative (08/24/14 1:24 = UA Protein) PM) [facility] AND [id number] 19:24:00 Test Item Value Reference Range Interpretation Comments UA pH (test code = UA pH) 6.0 1 5.0-8.0 [facility] AND [id number] 19:24:00 Test Item Value Reference Range Interpretation Comments UA Spec Grav (test code *NA*(08/24/14 1:24 PM) = UA Spec Grav) [facility] AND [id number] 19:24:00 Test Item Value Reference Range Interpretation Comments UA Turbidity (test code = Clear (08/24/14 1:24 UA Turbidity) PM) [facility] [employer] [id number] 19:24:00 Test Item Value Reference Range Interpretation Comments Lipase Lvl (test code = Lipase Lvl) 104 73-393 [facility] [employer] [id number] 19:24:00 Test Item Value Reference Range Interpretation Comments eGFR (test code = eGFR) 109 [facility] [id number] 19:24:00 Test Item Value Reference Range Interpretation Comments Bili Total (test code = Bili Total) 0.6 0.2-1.3 [facility] [employer] [id number] 19:24:00 Test Item Value Reference Range Interpretation Comments Alk Phos (test code = Alk Phos) 72 39-136 [facility]2015-01-12 19:24:00 Test Item Value Reference Range Interpretation Comments Calcium Lvl (test code = Calcium Lvl) 8.8 8.5-10.5 [place] [id number] 19:24:00 Test Item Value Reference Range Interpretation [...] Globulin (test code = Globulin) 4.2 2.0-4.0 [facility] CenterEhatbxuADZZPARKXCSKF4902-74-01 19:24:00 Test Item Value Reference Range Interpretation Comments S Preg (test code = S Negative *NA*(08/24/14 Preg) 1:24 PM) [facility] HospitalLvwshywPHSIKSCFYE5056-26-79 19:24:00 Test Item Value Reference Range Interpretation Comments WBC (test code = WBC) 11.3 3.7-10.4 [facility] HospitalM[id number] 19:24:00 Test Item Value Reference Range Interpretation Comments RBC (test code = RBC) 4.75 4.20-5.40 [facility] Ho[id number] 19:24:00 Test Item Value Reference Range Interpretation Comments Platelet (test code = Platelet) 402 133-450 [facility] HospitalCxzebqtBTOMQLVLDX5085-51-19 19:24:00 Test Item Value Reference Range Interpretation Comments MCV (test code = MCV) 89.9 80.0-98.0 [place] [id number] 19:24:00 Test Item Value Reference Range Interpretation Comments Hct (test code = Hct) 42.7 36.0-48.0 [facility] Ho[id number] 19:24:00 Test Item Value Reference Range Interpretation Comments Hgb (test code = Hgb) 14.5 12.0-16.0 [facility] HospitalKwohzftDUQXKPXZID5462-29-62 19:24:00 Test Item Value Reference Range Interpretation Comments RDW (test code = RDW) 13.5 11.5-14.5 [facility] Hos[id number] 19:24:00 Test Item Value Reference Range Interpretation Comments MCHC (test code = MCHC) 34.0 32.0-36.0 [facility] HospitalEfqhtrhZMTWMCICVY6165-32-45 19:24:00 Test Item Value Reference Range Interpretation Comments MCH (test code = MCH) 30.6 pg 27.0-31.0 [facility] Ho[id number] 19:24:00 Test Item Value Reference Range Interpretation Comments MPV (test code = MPV) 8.1 7.4-10.4 [facility] HospitalIrssryiMSOCKEUAHW3984-08-80 19:24:00 Test Item Value Reference Range Interpretation Comments Stomatocyte (test code = Stomatocyte) Slight [facility] HospitalJsqbfmwJILVIMTAHP4105-16-40 19:24:00 Test Item Value Reference Range Interpretation Comments Basophils # (test code 0.1 See_Comment [Aut omated message] The = Basophils #) system which generated this result tra nsmitted reference range : <=0.2. The reference r ozzy was not used to int erpret this result as normal/abnormal . [facility] Hospit[id number] 19:24:00 Test Item Value Reference Range Interpretation Comments Eosinophils # (test code 0.2 See_Comment [A utomated message] The = Eosinophils #) system whic h generated this result tra nsmitted reference range : <=0.5. The reference r ozzy was not used to int erpret this result as normal/abnormal . [facility] Hospit[id number] 19:24:00 Test Item Value Reference Range Interpretation Comments Hypochrom (test code = 1+ (08/24/14 1:24 PM) Hypochrom) [facility] Hosp[id number] 19:24:00 Test Item Value Reference Range Interpretation Comments Lymphocytes # (test code = Lymphocytes 2.8 1.0-5.5 #) [facility] H[id number] 19:24:00 Test Item Value Reference Range Interpretation Comments Segs-Bands # (test code = Segs-Bands #) 8.1 1.5-8.1 [facility] Hos[id number] 19:24:00 Test Item Value Reference Range Interpretation Comments Monocytes # (test code 0.2 See_Comment [Aut omated message] The = Monocytes #) system which generated this result tra nsmitted reference range : <=0.8. The reference r ozzy was not used to int erpret this result as normal/abnormal . [facility] Hos[id number] 19:24:00 Test Item Value Reference Range Interpretation Comments Lymphocytes (test code = Lymphocytes) 24.5 20.0-40.0 [facility] Hospit[id number] 19:24:00 Test Item Value Reference Range Interpretation Comments Segs (test code = Segs) 71.8 45.0-75.0 [facility] HospitalXqpwrgoQLZZMBHJKJ2307-92-09 19:24:00 Test Item Value Reference Range Interpretation Comments Basophils (test code = 0.6 See_Comment [Aut omated message] The Basophils) system which ge nerated this result tra nsmitted reference range : <=1.0. The reference r ozzy was not used to int erpret this result as normal/abnormal . [facility] HospitalRnrosrhRPUHKPWIAJ7149-72-43 19:24:00 Test Item Value Reference Range Interpretation Comments Monocytes (test code = Monocytes) 1.5 2.0-12.0 [facility] HospitalQkgrmfbDKCQUVZEJQ6719-98-71 19:24:00 Test Item Value Reference Range Interpretation Comments Eosinophils (test code = 1.6 See_Comment [A utomated message] The Eosinophils) system which ge nerated this result tra nsmitted reference range : <=4.0. The reference r ozzy was not used to int erpret this result as normal/abnormal . [facility] H[id number] 19:24:00 Test Item Value Reference Range Interpretation Comments Plt Morph (test code = Normal (08/24/14 1:24 Plt Morph) PM) [facility] AND [id number] 19:24:00 Test Item Value Reference Range Interpretation Comments UA Sq Epi (test code = UA Sq Occasional /LPF Epi) [facility]2015-01-12 19:24:00 Test Item Value Reference Range Interpretation Comments UA Bacteria (test code = UA Occasional /HPF Bacteria) [facility] AND [id number] 19:24:00 Test Item Value Reference Range Interpretation Comments UA Mucus (test code = None Seen (08/24/14 UA Mucus) 1:24 PM) [facility] AND [id number] 19:24:00 Test Item Value Reference Range Interpretation Comments UA WBC (test code = UA WBC) 0-2 /HPF [facility] AND [id number] 19:24:00 Test Item Value Reference Range Interpretation Comments UA RBC (test code = 0-2 /HPF See_Comment [Automa agye message] The UA RBC) system which ge nerated this result tra nsmitted reference range : <=2. The reference range was not used to interpr et this result as satish l/abnormal. [facility] AND [id number] 19:24:00 Test Item Value Reference Range Interpretation Comments UA Leuk Est (test Moderate *ABN*(08/24/14 code = UA Leuk Est) 1:24 PM) [facility] AND [id number] 19:24:00 Test Item Value Reference Range Interpretation Comments UA Nitrite (test code Negative (08/24/14 1:24 = UA Nitrite) PM) [facility] AND [id number] 19:24:00 Test Item Value Reference Range Interpretation Comments UA Urobilinogen (test code = UA 0.2 0.1-1.0 Urobilinogen) [facility] AND [id number] 19:24:00 Test Item Value Reference Range Interpretation Comments UA Ketones (test code Negative *NA*(08/24/14 = UA Ketones) 1:24 PM) [facility] AND [id number] 19:24:00 Test Item Value Reference Range Interpretation Comments UA Blood (test code = Negative (08/24/14 1:24 UA Blood) PM) [facility] AND [id number] 19:24:00 Test Item Value Reference Range Interpretation Comments UA Bili (test code = Negative *NA*(08/24/14 UA Bili) 1:24 PM) [facility] AND [id number] 19:24:00 Test Item Value Reference Range Interpretation Comments UA Color (test code = Yellow *NA*(08/24/14 UA Color) 1:24 PM) [facility] AND [id number] 19:24:00 Test Item Value Reference Range Interpretation Comments UA Glucose (test code Negative (08/24/14 1:24 = UA Glucose) PM) [facility] AND [id number] 19:24:00 Test Item Value Reference Range Interpretation Comments UA Protein (test code Negative (08/24/14 1:24 = UA Protein) PM) [facility] AND [id number] 19:24:00 Test Item Value Reference Range Interpretation Comments UA pH (test code = UA pH) 6.0 1 5.0-8.0 [facility] AND [id number] 19:24:00 Test Item Value Reference Range Interpretation Comments UA Spec Grav (test code *NA*(08/24/14 1:24 PM) = UA Spec Grav) [facility] AND [id number] 19:24:00 Test Item Value Reference Range Interpretation [...] Globulin (test code = Globulin) 4.2 2.0-4.0 [facility] CenterPsoflyeABGQHKORZFMTE6924-53-18 19:24:00 Test Item Value Reference Range Interpretation Comments S Preg (test code = S Negative *NA*(08/24/14 Preg) 1:24 PM) [facility] HospitalOkxrpatMQXLDJFXBU0125-19-00 19:24:00 Test Item Value Reference Range Interpretation Comments WBC (test code = WBC) 11.3 3.7-10.4 [facility] HospitalWuvfbisVVVQGJNKBZ7927-70-04 19:24:00 Test Item Value Reference Range Interpretation Comments RBC (test code = RBC) 4.75 4.20-5.40 [facility] HospitalEabtjaeGVJSXUEWCG8263-79-80 19:24:00 Test Item Value Reference Range Interpretation Comments Platelet (test code = Platelet) 402 133-450 [facility] HospitalOsaxjcqAUEDKJDKJV7784-75-09 19:24:00 Test Item Value Reference Range Interpretation Comments MCV (test code = MCV) 89.9 80.0-98.0 [facility] HospitalXseeznmYKPDSZDVDG7336-06-61 19:24:00 Test Item Value Reference Range Interpretation Comments Hct (test code = Hct) 42.7 36.0-48.0 [facility] HospitalYplajdsONBOSVTEKF3599-02-56 19:24:00 Test Item Value Reference Range Interpretation Comments Hgb (test code = Hgb) 14.5 12.0-16.0 [facility] HospitalQytquhtCYFJLHTHRS3384-25-52 19:24:00 Test Item Value Reference Range Interpretation Comments RDW (test code = RDW) 13.5 11.5-14.5 [facility] HospitalNotomteCZZAJACRND1348-45-17 19:24:00 Test Item Value Reference Range Interpretation Comments MCHC (test code = MCHC) 34.0 32.0-36.0 [facility] HospitalVbxmakkOCJWOVXHZW4842-49-28 19:24:00 Test Item Value Reference Range Interpretation Comments MCH (test code = MCH) 30.6 pg 27.0-31.0 [facility] HospitalCqqohlnTGURAQANRD3916-22-86 19:24:00 Test Item Value Reference Range Interpretation Comments MPV (test code = MPV) 8.1 7.4-10.4 [facility] HospitalQlazxvvLNSMBDUFOK0094-08-80 19:24:00 Test Item Value Reference Range Interpretation Comments Stomatocyte (test code = Stomatocyte) Slight [facility] HospitalUstivaxZKTFVLKCJB8305-37-63 19:24:00 Test Item Value Reference Range Interpretation Comments Basophils # (test code 0.1 See_Comment [Aut omated message] The = Basophils #) system which generated this result tra nsmitted reference range : <=0.2. The reference r ozzy was not used to int erpret this result as normal/abnormal . [facility] HospitalFrjhszePDGKNQHJIB8829-94-56 19:24:00 Test Item Value Reference Range Interpretation Comments Eosinophils # (test code 0.2 See_Comment [A utomated message] The = Eosinophils #) system whic h generated this result tra nsmitted reference range : <=0.5. The reference r ozzy was not used to int erpret this result as normal/abnormal . [facility] [facility]dfqx[facility]OQT0254-09-21 19:24:00 Test Item Value Reference Range Interpretation Comments Hypochrom (test code = 1+ (08/24/14 1:24 PM) Hypochrom) [id number] 19:24:00 Test Item Value Reference Range Interpretation Comments Lymphocytes # (test code = Lymphocytes 2.8 1.0-5.5 #) [facility] H[id number] 19:24:00 Test Item Value Reference Range Interpretation Comments Segs-Bands # (test code = Segs-Bands #) 8.1 1.5-8.1 [facility] HospitalVdqfekkSMBKWHSCGO9809-94-08 19:24:00 Test Item Value Reference Range Interpretation Comments Monocytes # (test code 0.2 See_Comment [Aut omated message] The = Monocytes #) system which generated this result tra nsmitted reference range : <=0.8. The reference r ozzy was not used to int erpret this result as normal/abnormal . [facility] Hospit[id number] 19:24:00 Test Item Value Reference Range Interpretation Comments Lymphocytes (test code = Lymphocytes) 24.5 20.0-40.0 [facility] Hospit[id number] 19:24:00 Test Item Value Reference Range Interpretation Comments Segs (test code = Segs) 71.8 45.0-75.0 [facility] Hospit[id number] 19:24:00 Test Item Value Reference Range Interpretation Comments Basophils (test code = 0.6 See_Comment [Aut omated message] The Basophils) system which ge nerated this result tra nsmitted reference range : <=1.0. The reference r ozzy was not used to int erpret this result as normal/abnormal . [facility] HospitalXkzcibtWQLWXRITDS5355-53-39 19:24:00 Test Item Value Reference Range Interpretation Comments Monocytes (test code = Monocytes) 1.5 2.0-12.0 [facility] HospitalFvvybwpAVZZNKUAWN2495-73-57 19:24:00 Test Item Value Reference Range Interpretation Comments Eosinophils (test code = 1.6 See_Comment [A utomated message] The Eosinophils) system which ge nerated this result tra nsmitted reference range : <=4.0. The reference r ozzy was not used to int erpret this result as normal/abnormal . [facility] HospitalVazgzzyBTXXLBZMCH7634-72-82 19:24:00 Test Item Value Reference Range Interpretation Comments Plt Morph (test code = Normal (08/24/14 1:24 Plt Morph) PM) [facility] [id number] 19:24:00 Test Item Value Reference Range Interpretation Comments UA Sq Epi (test code = UA Sq Occasional /LPF Epi) [facility] [id number] 19:24:00 Test Item Value Reference Range Interpretation Comments UA Bacteria (test code = UA Occasional /HPF Bacteria) [facility] [id number] 19:24:00 Test Item Value Reference Range Interpretation Comments UA Mucus (test code = None Seen (08/24/14 UA Mucus) 1:24 PM) [facility] [id number] 19:24:00 Test Item Value Reference Range Interpretation Comments UA WBC (test code = UA WBC) 0-2 /HPF [facility] [id number] 19:24:00 Test Item Value Reference Range Interpretation Comments UA RBC (test code = 0-2 /HPF See_Comment [Automa gaye message] The UA RBC) system which ge nerated this result tra nsmitted reference range : <=2. The reference range was not used to interpr et this result as satish l/abnormal. [facility] AND [id number] 19:24:00 Test Item Value Reference Range Interpretation Comments UA Leuk Est (test Moderate *ABN*(08/24/14 code = UA Leuk Est) 1:24 PM) [facility] [id number] 19:24:00 Test Item Value Reference Range Interpretation Comments UA Nitrite (test code Negative (08/24/14 1:24 = UA Nitrite) PM) [facility] AND [id number] 19:24:00 Test Item Value Reference Range Interpretation Comments UA Urobilinogen (test code = UA 0.2 0.1-1.0 Urobilinogen) [facility] AND [id number] 19:24:00 Test Item Value Reference Range Interpretation Comments UA Ketones (test code Negative *NA*(08/24/14 = UA Ketones) 1:24 PM) [facility] [id number] 19:24:00 Test Item Value Reference Range Interpretation Comments UA Blood (test code = Negative (08/24/14 1:24 UA Blood) PM) [facility] [id number] 19:24:00 Test Item Value Reference Range Interpretation Comments UA Bili (test code = Negative *NA*(08/24/14 UA Bili) 1:24 PM) [facility] [id number] 19:24:00 Test Item Value Reference Range Interpretation Comments UA Color (test code = Yellow *NA*(08/24/14 UA Color) 1:24 PM) [facility] [id number] 19:24:00 Test Item Value Reference Range Interpretation Comments UA Glucose (test code Negative (08/24/14 1:24 = UA Glucose) PM) [facility] AND [id number] 19:24:00 Test Item Value Reference Range Interpretation Comments UA Protein (test code Negative (08/24/14 1:24 = UA Protein) PM) [facility] [id number] 19:24:00 Test Item Value Reference Range Interpretation Comments UA pH (test code = UA pH) 6.0 1 5.0-8.0 [facility] [id number] 19:24:00 Test Item Value Reference Range Interpretation Comments UA Spec Grav (test code *NA*(08/24/14 1:24 PM) = UA Spec Grav) [facility] [id number] 19:24:00 Test Item Value Reference Range Interpretation [...] (test code = Total 8.0 6.4-8.4 Protein) [place] [id number] 19:24:00 Test Item Value Reference Range Interpretation Comments A/G Ratio (test code = A/G Ratio) 0.9 0.7-1.6 [facility]2015-01-12 19:24:00 Test Item Value Reference Range Interpretation Comments AGAP (test code = AGAP) 6.9 10.0-20.0 [facility]2015-01-12 19:24:00 Test Item Value Reference Range Interpretation Comments B/C Ratio (test code = B/C Ratio) 10 6-25 [place] [id number] 19:24:00 Test Item Value Reference Range Interpretation Comments Globulin (test code = Globulin) 4.2 2.0-4.0 [facility]OVFNDGLVIAWLZ6952-39-53 19:24:00 Test Item Value Reference Range Interpretation Comments S Preg (test code = S Negative *NA*(08/24/14 Preg) 1:24 PM) [facility] HospitalEugconbARXAEZKANB7599-13-33 19:24:00 Test Item Value Reference Range Interpretation Comments WBC (test code = WBC) 11.3 3.7-10.4 [facility] HospitalZyakjfiTXANDBULDR9869-81-36 19:24:00 Test Item Value Reference Range Interpretation Comments RBC (test code = RBC) 4.75 4.20-5.40 [facility] HospitalZygidvcKTPZYUMTSA6983-55-71 19:24:00 Test Item Value Reference Range Interpretation Comments Platelet (test code = Platelet) 402 133-450 [facility] Hospit[id number] 19:24:00 Test Item Value Reference Range Interpretation Comments MCV (test code = MCV) 89.9 80.0-98.0 [facility] HospitalNmsjezvJWXJGERPEU9769-69-80 19:24:00 Test Item Value Reference Range Interpretation Comments Hct (test code = Hct) 42.7 36.0-48.0 [facility] HospitalKnlsfozVCWVZURUWM0152-08-42 19:24:00 Test Item Value Reference Range Interpretation Comments Hgb (test code = Hgb) 14.5 12.0-16.0 [facility] HospitalHlgpyuwQJGTWGWDXA5458-98-77 19:24:00 Test Item Value Reference Range Interpretation Comments RDW (test code = RDW) 13.5 11.5-14.5 [facility] HospitalTgladqbZZDOZRZTES9679-26-51 19:24:00 Test Item Value Reference Range Interpretation Comments MCHC (test code = MCHC) 34.0 32.0-36.0 [facility] HospitalPgtmjypPQBAMNEDNR4835-59-23 19:24:00 Test Item Value Reference Range Interpretation Comments MCH (test code = MCH) 30.6 pg 27.0-31.0 [facility] HospitalRdmqucvVLJJPJIBIY6557-64-16 19:24:00 Test Item Value Reference Range Interpretation Comments MPV (test code = MPV) 8.1 7.4-10.4 [facility] Hospit[id number] 19:24:00 Test Item Value Reference Range Interpretation Comments Stomatocyte (test code = Stomatocyte) Slight [facility] HospitalCdrrevlLIXDEWJFCZ4004-56-36 19:24:00 Test Item Value Reference Range Interpretation Comments Basophils # (test code 0.1 See_Comment [Aut omated message] The = Basophils #) system which generated this result tra nsmitted reference range : <=0.2. The reference r ozzy was not used to int erpret this result as normal/abnormal . [facility] Hospit[id number] 19:24:00 Test Item Value Reference Range Interpretation Comments Eosinophils # (test code 0.2 See_Comment [A utomated message] The = Eosinophils #) system whic h generated this result tra nsmitted reference range : <=0.5. The reference r ozzy was not used to int erpret this result as normal/abnormal . [facility] Hospit[id number] 19:24:00 Test Item Value Reference Range Interpretation Comments Hypochrom (test code = 1+ (08/24/14 1:24 PM) Hypochrom) [facility] HospitalNzvgljjPGZJEFWVQA6244-14-15 19:24:00 Test Item Value Reference Range Interpretation Comments Lymphocytes # (test code = Lymphocytes 2.8 1.0-5.5 #) [facility] HospitalDzidrnzVZWUQGJRAE8297-30-20 19:24:00 Test Item Value Reference Range Interpretation Comments Segs-Bands # (test code = Segs-Bands #) 8.1 1.5-8.1 [facility] HospitalUnkuywsTODDFCWACL9020-47-49 19:24:00 Test Item Value Reference Range Interpretation Comments Monocytes # (test code 0.2 See_Comment [Aut omated message] The = Monocytes #) system which generated this result tra nsmitted reference range : <=0.8. The reference r ozzy was not used to int erpret this result as normal/abnormal . [facility] Hospit[id number] 19:24:00 Test Item Value Reference Range Interpretation Comments Lymphocytes (test code = Lymphocytes) 24.5 20.0-40.0 [facility] Hospit[id number] 19:24:00 Test Item Value Reference Range Interpretation Comments Segs (test code = Segs) 71.8 45.0-75.0 [facility] HospitalFwksdlpUSWDOVWKCX5507-64-50 19:24:00 Test Item Value Reference Range Interpretation Comments Basophils (test code = 0.6 See_Comment [Aut omated message] The Basophils) system which ge nerated this result tra nsmitted reference range : <=1.0. The reference r ozzy was not used to int erpret this result as normal/abnormal . [facility] HospitalMjwqmdtIJENXGCATX8194-76-61 19:24:00 Test Item Value Reference Range Interpretation Comments Monocytes (test code = Monocytes) 1.5 2.0-12.0 [facility] HospitalYwaqogkGLQTESSJZX2003-18-97 19:24:00 Test Item Value Reference Range Interpretation Comments Eosinophils (test code = 1.6 See_Comment [A utomated message] The Eosinophils) system which ge nerated this result tra nsmitted reference range : <=4.0. The reference r ozzy was not used to int erpret this result as normal/abnormal . [facility] Hos[id number] 19:24:00 Test Item Value Reference Range Interpretation Comments Plt Morph (test code = Normal (08/24/14 1:24 Plt Morph) PM) [facility] [id number] 19:24:00 Test Item Value Reference Range Interpretation Comments UA Sq Epi (test code = UA Sq Occasional /LPF Epi) [facility] AND [id number] 19:24:00 Test Item Value Reference Range Interpretation Comments UA Bacteria (test code = UA Occasional /HPF Bacteria) [facility] AND [id number] 19:24:00 Test Item Value Reference Range Interpretation Comments UA Mucus (test code = None Seen (08/24/14 UA Mucus) 1:24 PM) [facility] AND [id number] 19:24:00 Test Item Value Reference Range Interpretation Comments UA WBC (test code = UA WBC) 0-2 /HPF [facility] AND [id number] 19:24:00 Test Item Value Reference Range Interpretation Comments UA RBC (test code = 0-2 /HPF See_Comment [Automa gaye message] The UA RBC) system which ge nerated this result tra nsmitted reference range : <=2. The reference range was not used to interpr et this result as satish l/abnormal. [facility] AND [id number] 19:24:00 Test Item Value Reference Range Interpretation Comments UA Leuk Est (test Moderate *ABN*(08/24/14 code = UA Leuk Est) 1:24 PM) [facility] AND [id number] 19:24:00 Test Item Value Reference Range Interpretation Comments UA Nitrite (test code Negative (08/24/14 1:24 = UA Nitrite) PM) [facility] AND [id number] 19:24:00 Test Item Value Reference Range Interpretation Comments UA Urobilinogen (test code = UA 0.2 0.1-1.0 Urobilinogen) [facility] AND [id number] 19:24:00 Test Item Value Reference Range Interpretation Comments UA Ketones (test code Negative *NA*(08/24/14 = UA Ketones) 1:24 PM) [facility] AND [id number] 19:24:00 Test Item Value Reference Range Interpretation Comments UA Blood (test code = Negative (08/24/14 1:24 UA Blood) PM) [facility] AND [id number] 19:24:00 Test Item Value Reference Range Interpretation Comments UA Bili (test code = Negative *NA*(08/24/14 UA Bili) 1:24 PM) [facility] AND [id number] 19:24:00 Test Item Value Reference Range Interpretation Comments UA Color (test code = Yellow *NA*(08/24/14 UA Color) 1:24 PM) [facility] AND [id number] 19:24:00 Test Item Value Reference Range Interpretation Comments UA Glucose (test code Negative (08/24/14 1:24 = UA Glucose) PM) [facility] AND [id number] 19:24:00 Test Item Value Reference Range Interpretation Comments UA Protein (test code Negative (08/24/14 1:24 = UA Protein) PM) [facility] AND [id number] 19:24:00 Test Item Value Reference Range Interpretation Comments UA pH (test code = UA pH) 6.0 1 5.0-8.0 [facility] AND [id number] 19:24:00 Test Item Value Reference Range Interpretation Comments UA Spec Grav (test code *NA*(08/24/14 1:24 PM) = UA Spec Grav) [facility] AND [id number] 19:24:00 Test Item Value Reference Range Interpretation [...] Globulin (test code = Globulin) 4.2 2.0-4.0 [facility]C[id number] 19:24:00 Test Item Value Reference Range Interpretation Comments S Preg (test code = S Negative *NA*(08/24/14 Preg) 1:24 PM) [facility] Hospit[id number] 19:24:00 Test Item Value Reference Range Interpretation Comments WBC (test code = WBC) 11.3 3.7-10.4 [facility] HospitalAhnbvbiCUCQPYLKFC5327-55-82 19:24:00 Test Item Value Reference Range Interpretation Comments RBC (test code = RBC) 4.75 4.20-5.40 [facility] HospitalTnxjhwgPPAQQYBLWT3440-69-20 19:24:00 Test Item Value Reference Range Interpretation Comments Platelet (test code = Platelet) 402 133-450 [facility] HospitalVkgzzlvVIUFIWVNZP4093-08-54 19:24:00 Test Item Value Reference Range Interpretation Comments MCV (test code = MCV) 89.9 80.0-98.0 [facility] HospitalIuhcgqpAKGQSYSVPW5826-58-95 19:24:00 Test Item Value Reference Range Interpretation Comments Hct (test code = Hct) 42.7 36.0-48.0 [facility] HospitalIjkzciiBEJIPTSEAV3861-32-82 19:24:00 Test Item Value Reference Range Interpretation Comments Hgb (test code = Hgb) 14.5 12.0-16.0 [facility] HospitalSjmmncxKQHYGJNNMT8267-06-88 19:24:00 Test Item Value Reference Range Interpretation Comments RDW (test code = RDW) 13.5 11.5-14.5 [facility] Hospit[id number] 19:24:00 Test Item Value Reference Range Interpretation Comments MCHC (test code = MCHC) 34.0 32.0-36.0 [facility] HospitalFpvwufwXYOSMIMCGC4684-78-05 19:24:00 Test Item Value Reference Range Interpretation Comments MCH (test code = MCH) 30.6 pg 27.0-31.0 [facility] HospitalXlplpxsQSCMXEDCVV5606-68-64 19:24:00 Test Item Value Reference Range Interpretation Comments MPV (test code = MPV) 8.1 7.4-10.4 [facility] HospitalHnfskhaNNRDVRTTRF5534-31-58 19:24:00 Test Item Value Reference Range Interpretation Comments Stomatocyte (test code = Stomatocyte) Slight [facility] HospitalVttanakMHBRXALVDI3831 19:24:00 Test Item Value Reference Range Interpretation Comments Basophils # (test code 0.1 See_Comment [Aut omated message] The = Basophils #) system which generated this result tra nsmitted reference range : <=0.2. The reference r ozzy was not used to int erpret this result as normal/abnormal . [facility] HospitalYvptkbnGOZMJDPNBU5509-24-44 19:24:00 Test Item Value Reference Range Interpretation Comments Eosinophils # (test code 0.2 See_Comment [A utomated message] The = Eosinophils #) system whic h generated this result tra nsmitted reference range : <=0.5. The reference r ozzy was not used to int erpret this result as normal/abnormal . [facility] HospitalQssamfoVYOUBUKWRD9574-32-01 19:24:00 Test Item Value Reference Range Interpretation Comments Hypochrom (test code = 1+ (08/24/14 1:24 PM) Hypochrom) [facility] Hospit[id number] 19:24:00 Test Item Value Reference Range Interpretation Comments Lymphocytes # (test code = Lymphocytes 2.8 1.0-5.5 #) [facility] Hospit[id number] 19:24:00 Test Item Value Reference Range Interpretation Comments Segs-Bands # (test code = Segs-Bands #) 8.1 1.5-8.1 [place] [id number] 19:24:00 Test Item Value Reference Range Interpretation Comments Monocytes # (test code 0.2 See_Comment [Aut omated message] The = Monocytes #) system which generated this result tra nsmitted reference range : <=0.8. The reference r ozzy was not used to int erpret this result as normal/abnormal . [facility] HospitalRpbdlwaRCITYHEAGN7529-91-95 19:24:00 Test Item Value Reference Range Interpretation Comments Lymphocytes (test code = Lymphocytes) 24.5 20.0-40.0 [facility] HospitalSufwljhBZMATCGPGO9697-48-17 19:24:00 Test Item Value Reference Range Interpretation Comments Segs (test code = Segs) 71.8 45.0-75.0 [facility] HospitalDxpuoxhFZCNKJDVTU6984-55-57 19:24:00 Test Item Value Reference Range Interpretation Comments Basophils (test code = 0.6 See_Comment [Aut omated message] The Basophils) system which ge nerated this result tra nsmitted reference range : <=1.0. The reference r ozzy was not used to int erpret this result as normal/abnormal . [facility] HospitalJocnyxeHWSOPNKCNQ2956-88-02 19:24:00 Test Item Value Reference Range Interpretation Comments Monocytes (test code = Monocytes) 1.5 2.0-12.0 [facility] Hospit[id number] 19:24:00 Test Item Value Reference Range Interpretation Comments Eosinophils (test code = 1.6 See_Comment [A utomated message] The Eosinophils) system which ge nerated this result tra nsmitted reference range : <=4.0. The reference r ozzy was not used to int erpret this result as normal/abnormal . [facility]SesikseFCXNENTXNH1453-11-56 19:24:00 Test Item Value Reference Range Interpretation Comments Plt Morph (test code = Normal (08/24/14 1:24 Plt Morph) PM) [facility] [id number] 19:24:00 Test Item Value Reference Range Interpretation Comments UA Sq Epi (test code = UA Sq Occasional /LPF Epi) [facility] [id number] 19:24:00 Test Item Value Reference Range Interpretation Comments UA Bacteria (test code = UA Occasional /HPF Bacteria) [facility] [id number] 19:24:00 Test Item Value Reference Range Interpretation Comments UA Mucus (test code = None Seen (08/24/14 UA Mucus) 1:24 PM) [facility] [id number] 19:24:00 Test Item Value Reference Range Interpretation Comments UA WBC (test code = UA WBC) 0-2 /HPF [facility] [id number] 19:24:00 Test Item Value Reference Range Interpretation Comments UA RBC (test code = 0-2 /HPF See_Comment [Automa gaye message] The UA RBC) system which ge nerated this result tra nsmitted reference range : <=2. The reference range was not used to interpr et this result as satish l/abnormal. [facility] AND [id number] 19:24:00 Test Item Value Reference Range Interpretation Comments UA Leuk Est (test Moderate *ABN*(08/24/14 code = UA Leuk Est) 1:24 PM) [facility] [id number] 19:24:00 Test Item Value Reference Range Interpretation Comments UA Nitrite (test code Negative (08/24/14 1:24 = UA Nitrite) PM) [facility] AND [id number] 19:24:00 Test Item Value Reference Range Interpretation Comments UA Urobilinogen (test code = UA 0.2 0.1-1.0 Urobilinogen) [facility] AND [id number] 19:24:00 Test Item Value Reference Range Interpretation Comments UA Ketones (test code Negative *NA*(1/12/15 = UA Ketones) 1:24 PM) [facility] [id number] 19:24:00 Test Item Value Reference Range Interpretation Comments UA Blood (test code = Negative (08/24/14 1:24 UA Blood) PM) [facility] [id number] 19:24:00 Test Item Value Reference Range Interpretation Comments UA Bili (test code = Negative *NA*(08/24/14 UA Bili) 1:24 PM) [facility] AND [id number] 19:24:00 Test Item Value Reference Range Interpretation Comments UA Color (test code = Yellow *NA*(08/24/14 UA Color) 1:24 PM) [facility] [id number] 19:24:00 Test Item Value Reference Range Interpretation Comments UA Glucose (test code Negative (08/24/14 1:24 = UA Glucose) PM) [facility] [id number] 19:24:00 Test Item Value Reference Range Interpretation Comments UA Protein (test code Negative (08/24/14 1:24 = UA Protein) PM) [facility] [id number] 19:24:00 Test Item Value Reference Range Interpretation Comments UA pH (test code = UA pH) 6.0 1 5.0-8.0 [facility] [id number] 19:24:00 Test Item Value Reference Range Interpretation Comments UA Spec Grav (test code *NA*(08/24/14 1:24 PM) = UA Spec Grav) [facility] [id number] 19:24:00 Test Item Value Reference Range Interpretation Comments UA Turbidity (test code = Clear (08/24/14 1:24 UA Turbidity) PM) [facility] [id number] 19:24:00 Test Item Value Reference Range Interpretation Comments Lipase Lvl (test code = Lipase Lvl) 104 73-393 [facility]annCHE[facility] [id number] 19:24:00 Test Item Value Reference Range Interpretation Comments eGFR (test code = eGFR) 109 [facility] [id number] 19:24:00 Test Item Value Reference Range Interpretation Comments Bili Total (test code = Bili Total) 0.6 0.2-1.3 [place] [id number] 19:24:00 Test Item Value Reference Range Interpretation Comments Alk Phos (test code = Alk Phos) 72 39-136 [facility]2015-01-12 19:24:00 Test Item Value Reference Range Interpretation Comments Calcium Lvl (test code = Calcium Lvl) 8.8 8.5-10.5 [place] [id number] 19:24:00 Test Item Value Reference Range Interpretation Comments CO2 (test code = CO2) 28 24-32 [facility]2015-01-12 19:24:00 Test Item Value Reference Range Interpretation Comments Chloride Lvl (test code = Chloride Lvl) 107 95-109 [facility]2015-01-12 19:24:00 Test Item Value Reference Range Interpretation Comments Potassium Lvl (test code = Potassium 3.9 3.5-5.1 Lvl) [place] [id number] 19:24:00 Test Item Value Reference Range Interpretation Comments Glucose Lvl (test code = Glucose Lvl) 90 70-99 [facility]2015-01-12 19:24:00 Test Item Value Reference Range Interpretation Comments Sodium Lvl (test code = Sodium Lvl) 138 135-145 [facility]2015-01-12 19:24:00 Test Item Value Reference Range Interpretation Comments BUN (test code = BUN) 7 7-22 [place] 580145-01-12 19:24:00 Test Item Value Reference Range Interpretation [...] Globulin (test code = Globulin) 4.2 2.0-4.0 [facility]TaqcjvgMSBUWCEXLKVZY6557-54-22 19:24:00 Test Item Value Reference Range Interpretation Comments S Preg (test code = S Negative *NA*(08/24/14 Preg) 1:24 PM) [facility] HospitalYxxolmoTZEJECWYHO9477-43-56 19:24:00 Test Item Value Reference Range Interpretation Comments WBC (test code = WBC) 11.3 3.7-10.4 [facility] HospitalGoskbmnOVYZBNFPPF2163-40-65 19:24:00 Test Item Value Reference Range Interpretation Comments RBC (test code = RBC) 4.75 4.20-5.40 [facility] HospitalPzcokhxRIZUKTVVNI4520-30-63 19:24:00 Test Item Value Reference Range Interpretation Comments Platelet (test code = Platelet) 402 133-450 [facility] HospitalWphrxjrBVEXHVAREL6078-25-13 19:24:00 Test Item Value Reference Range Interpretation Comments MCV (test code = MCV) 89.9 80.0-98.0 [facility] HospitalOqhqaibSFXHOLQUBT6113-12-21 19:24:00 Test Item Value Reference Range Interpretation Comments Hct (test code = Hct) 42.7 36.0-48.0 [facility] HospitalHgkcgvsOIGXMETCJI6389-65-44 19:24:00 Test Item Value Reference Range Interpretation Comments Hgb (test code = Hgb) 14.5 12.0-16.0 [facility] HospitalViwuctsBNWBHRTTNC2440-39-35 19:24:00 Test Item Value Reference Range Interpretation Comments RDW (test code = RDW) 13.5 11.5-14.5 [facility] HospitalOjvrorkDVGDGWUUKO2284-97-96 19:24:00 Test Item Value Reference Range Interpretation Comments MCHC (test code = MCHC) 34.0 32.0-36.0 [facility] HospitalMekoabwLFWFPVYTEK1117-47-81 19:24:00 Test Item Value Reference Range Interpretation Comments MCH (test code = MCH) 30.6 pg 27.0-31.0 [facility] HospitalIhebpxnXGUIXADZKE6320-28-70 19:24:00 Test Item Value Reference Range Interpretation Comments MPV (test code = MPV) 8.1 7.4-10.4 [facility] HospitalMpvucyfELNVZLYBPH3318-73-42 19:24:00 Test Item Value Reference Range Interpretation Comments Stomatocyte (test code = Stomatocyte) Slight [facility] HospitalMjouaoxXQSOTOOCMZ6748-12-84 19:24:00 Test Item Value Reference Range Interpretation Comments Basophils # (test code 0.1 See_Comment [Aut omated message] The = Basophils #) system which generated this result tra nsmitted reference range : <=0.2. The reference r ozzy was not used to int erpret this result as normal/abnormal . [facility] HospitalVslorpaOCFLTHPZNQ5732-82-64 19:24:00 Test Item Value Reference Range Interpretation Comments Eosinophils # (test code 0.2 See_Comment [A utomated message] The = Eosinophils #) system whic h generated this result tra nsmitted reference range : <=0.5. The reference r ozzy was not used to int erpret this result as normal/abnormal . [facility] HospitalFcsphmpTPSBQGIJRT1508-51-22 19:24:00 Test Item Value Reference Range Interpretation Comments Hypochrom (test code = 1+ (08/24/14 1:24 PM) Hypochrom) [facility] HospitalHgzatdgNCMECAWTPS0574-38-27 19:24:00 Test Item Value Reference Range Interpretation Comments Lymphocytes # (test code = Lymphocytes 2.8 1.0-5.5 #) [facility] HospitalTdseyezSFGGRQWKVX3625-59-19 19:24:00 Test Item Value Reference Range Interpretation Comments Segs-Bands # (test code = Segs-Bands #) 8.1 1.5-8.1 [facility] HospitalTrttnvqYSMFULSUBF0828-59-20 19:24:00 Test Item Value Reference Range Interpretation Comments Monocytes # (test code 0.2 See_Comment [Aut omated message] The = Monocytes #) system which generated this result tra nsmitted reference range : <=0.8. The reference r ozzy was not used to int erpret this result as normal/abnormal . [facility] HospitalQwercmjZGDYTIWTDX5418-41-74 19:24:00 Test Item Value Reference Range Interpretation Comments Lymphocytes (test code = Lymphocytes) 24.5 20.0-40.0 [facility] HospitalLntlnllSEOEMYAWCV9968-65-81 19:24:00 Test Item Value Reference Range Interpretation Comments Segs (test code = Segs) 71.8 45.0-75.0 [facility] HospitalIixhuiyUTWGBRJPJX6697-90-86 19:24:00 Test Item Value Reference Range Interpretation Comments Basophils (test code = 0.6 See_Comment [Aut omated message] The Basophils) system which ge nerated this result tra nsmitted reference range : <=1.0. The reference r ozzy was not used to int erpret this result as normal/abnormal . [facility] HospitalUachcjcUMKVWZCNDE5452-53-31 19:24:00 Test Item Value Reference Range Interpretation Comments Monocytes (test code = Monocytes) 1.5 2.0-12.0 [facility] HospitalNknquhgVKYZKNLDKU3245-88-37 19:24:00 Test Item Value Reference Range Interpretation Comments Eosinophils (test code = 1.6 See_Comment [A utomated message] The Eosinophils) system which ge nerated this result tra nsmitted reference range : <=4.0. The reference r ozzy was not used to int erpret this result as normal/abnormal . [facility] HospitalMwhstlkGWXIQCQDJY9202-18-00 19:24:00 Test Item Value Reference Range Interpretation Comments Plt Morph (test code = Normal (08/24/14 1:24 Plt Morph) PM) [facility] AND [id number] 19:24:00 Test Item Value Reference Range Interpretation Comments UA Sq Epi (test code = UA Sq Occasional /LPF Epi) [facility] AND [id number] 19:24:00 Test Item Value Reference Range Interpretation Comments UA Bacteria (test code = UA Occasional /HPF Bacteria) [facility] AND [id number] 19:24:00 Test Item Value Reference Range Interpretation Comments UA Mucus (test code = None Seen (08/24/14 UA Mucus) 1:24 PM) [facility] AND [id number] 19:24:00 Test Item Value Reference Range Interpretation Comments UA WBC (test code = UA WBC) 0-2 /HPF [facility] AND [id number] 19:24:00 Test Item Value Reference Range Interpretation Comments UA RBC (test code = 0-2 /HPF See_Comment [Automa gaye message] The UA RBC) system which ge nerated this result tra nsmitted reference range : <=2. The reference range was not used to interpr et this result as satish l/abnormal. [facility] AND [id number] 19:24:00 Test Item Value Reference Range Interpretation Comments UA Leuk Est (test Moderate *ABN*(08/24/14 code = UA Leuk Est) 1:24 PM) [facility] AND [id number] 19:24:00 Test Item Value Reference Range Interpretation Comments UA Nitrite (test code Negative (08/24/14 1:24 = UA Nitrite) PM) [facility] AND [id number] 19:24:00 Test Item Value Reference Range Interpretation Comments UA Urobilinogen (test code = UA 0.2 0.1-1.0 Urobilinogen) [facility] AND [id number] 19:24:00 Test Item Value Reference Range Interpretation Comments UA Ketones (test code Negative *NA*(08/24/14 = UA Ketones) 1:24 PM) [facility] AND [id number] 19:24:00 Test Item Value Reference Range Interpretation Comments UA Blood (test code = Negative (08/24/14 1:24 UA Blood) PM) [facility] AND [id number] 19:24:00 Test Item Value Reference Range Interpretation Comments UA Bili (test code = Negative *NA*(08/24/14 UA Bili) 1:24 PM) [facility] AND [id number] 19:24:00 Test Item Value Reference Range Interpretation Comments UA Color (test code = Yellow *NA*(08/24/14 UA Color) 1:24 PM) [facility] AND [id number] 19:24:00 Test Item Value Reference Range Interpretation Comments UA Glucose (test code Negative (08/24/14 1:24 = UA Glucose) PM) [facility] AND [id number] 19:24:00 Test Item Value Reference Range Interpretation Comments UA Protein (test code Negative (08/24/14 1:24 = UA Protein) PM) [facility] AND [id number] 19:24:00 Test Item Value Reference Range Interpretation Comments UA pH (test code = UA pH) 6.0 1 5.0-8.0 [facility] AND [id number] 19:24:00 Test Item Value Reference Range Interpretation Comments UA Spec Grav (test code *NA*(08/24/14 1:24 PM) = UA Spec Grav) [facility] AND [id number] 19:24:00 Test Item Value Reference Range Interpretation [...] CO2 (test code = CO2) 28 24-32 [place] [id number] 19:24:00 Test Item Value Reference Range Interpretation [...] Globulin (test code = Globulin) 4.2 2.0-4.0 [facility]EkgacwoNDKEEJCBJTLCI5933-97-13 19:24:00 Test Item Value Reference Range Interpretation Comments S Preg (test code = S Negative *NA*(08/24/14 Preg) 1:24 PM) [facility] HospitalRociajgLASMFWAORV3603-89-09 19:24:00 Test Item Value Reference Range Interpretation Comments WBC (test code = WBC) 11.3 3.7-10.4 [facility] HospitalTsejcajUPJHKMDZEJ3536-24-59 19:24:00 Test Item Value Reference Range Interpretation Comments RBC (test code = RBC) 4.75 4.20-5.40 [facility] HospitalBpluaykGGVCRFIIKD7629-77-30 19:24:00 Test Item Value Reference Range Interpretation Comments Platelet (test code = Platelet) 402 133-450 [facility] HospitalLoawigvARCSZIFHDR5255-94-60 19:24:00 Test Item Value Reference Range Interpretation Comments MCV (test code = MCV) 89.9 80.0-98.0 [facility] HospitalRuomtfaYNQHHSGHVC1506-31-56 19:24:00 Test Item Value Reference Range Interpretation Comments Hct (test code = Hct) 42.7 36.0-48.0 [facility] HospitalLuhthtsQEYAFKKKQI8042-79-19 19:24:00 Test Item Value Reference Range Interpretation Comments Hgb (test code = Hgb) 14.5 12.0-16.0 [facility] HospitalUqikiroOUAUPOQSAB5583-17-69 19:24:00 Test Item Value Reference Range Interpretation Comments RDW (test code = RDW) 13.5 11.5-14.5 [facility] HospitalMgvhetbVONYNXABRE7628-73-47 19:24:00 Test Item Value Reference Range Interpretation Comments MCHC (test code = MCHC) 34.0 32.0-36.0 [facility] HospitalTwkagbjFZHMDTHLLV1517-42-27 19:24:00 Test Item Value Reference Range Interpretation Comments MCH (test code = MCH) 30.6 pg 27.0-31.0 [facility] HospitalHlfdsgvCAXJQLKRHS6187-14-09 19:24:00 Test Item Value Reference Range Interpretation Comments MPV (test code = MPV) 8.1 7.4-10.4 [facility] HospitalNnexffrVCOWSWNQXC9975-83-11 19:24:00 Test Item Value Reference Range Interpretation Comments Stomatocyte (test code = Stomatocyte) Slight [facility] HospitalJywrtyvTCQFPGQABL4839-37-08 19:24:00 Test Item Value Reference Range Interpretation Comments Basophils # (test code 0.1 See_Comment [Aut omated message] The = Basophils #) system which generated this result tra nsmitted reference range : <=0.2. The reference r ozzy was not used to int erpret this result as normal/abnormal . [facility] HospitalAiyjkasSSQOBRKALV1694-87-11 19:24:00 Test Item Value Reference Range Interpretation Comments Eosinophils # (test code 0.2 See_Comment [A utomated message] The = Eosinophils #) system whic h generated this result tra nsmitted reference range : <=0.5. The reference r ozzy was not used to int erpret this result as normal/abnormal . [facility] HospitalYqrmebuQDTHLUPQAV9853-07-72 19:24:00 Test Item Value Reference Range Interpretation Comments Hypochrom (test code = 1+ (08/24/14 1:24 PM) Hypochrom) [facility] HospitalKwmycyjLOUWZPAJTN1342-09-36 19:24:00 Test Item Value Reference Range Interpretation Comments Lymphocytes # (test code = Lymphocytes 2.8 1.0-5.5 #) [facility] HospitalYbdtdvkEJBJOFHLOI2051-73-89 19:24:00 Test Item Value Reference Range Interpretation Comments Segs-Bands # (test code = Segs-Bands #) 8.1 1.5-8.1 [facility] HospitalVpvowpsIZZODBSFWB6107-07-52 19:24:00 Test Item Value Reference Range Interpretation Comments Monocytes # (test code 0.2 See_Comment [Aut omated message] The = Monocytes #) system which generated this result tra nsmitted reference range : <=0.8. The reference r ozzy was not used to int erpret this result as normal/abnormal . [facility] HospitalXjezdauJIQMEMKQZI8782-29-18 19:24:00 Test Item Value Reference Range Interpretation Comments Lymphocytes (test code = Lymphocytes) 24.5 20.0-40.0 [facility] HospitalMuxaeboGXWRLQQFGK6726-63-73 19:24:00 Test Item Value Reference Range Interpretation Comments Segs (test code = Segs) 71.8 45.0-75.0 [facility] HospitalVtafiohVJQCECQTTQ9729-92-86 19:24:00 Test Item Value Reference Range Interpretation Comments Basophils (test code = 0.6 See_Comment [Aut omated message] The Basophils) system which ge nerated this result tra nsmitted reference range : <=1.0. The reference r ozyz was not used to int erpret this result as normal/abnormal . [facility] HospitalSabwqhbLSXICVMWYS7048-64-20 19:24:00 Test Item Value Reference Range Interpretation Comments Monocytes (test code = Monocytes) 1.5 2.0-12.0 [facility] HospitalKhgkkboHQVGBUKOSN3068-23-05 19:24:00 Test Item Value Reference Range Interpretation Comments Eosinophils (test code = 1.6 See_Comment [A utomated message] The Eosinophils) system which ge nerated this result tra nsmitted reference range : <=4.0. The reference r ozzy was not used to int erpret this result as normal/abnormal . [facility] HospitalBrbvojwGNHQOZWHRZ5137-41-25 19:24:00 Test Item Value Reference Range Interpretation Comments Plt Morph (test code = Normal (08/24/14 1:24 Plt Morph) PM) [facility] AND [id number] 19:24:00 Test Item Value Reference Range Interpretation Comments UA Sq Epi (test code = UA Sq Occasional /LPF Epi) [facility] AND [id number] 19:24:00 Test Item Value Reference Range Interpretation Comments UA Bacteria (test code = UA Occasional /HPF Bacteria) [facility] AND [id number] 19:24:00 Test Item Value Reference Range Interpretation Comments UA Mucus (test code = None Seen (08/24/14 UA Mucus) 1:24 PM) [facility] AND [id number] 19:24:00 Test Item Value Reference Range Interpretation Comments UA WBC (test code = UA WBC) 0-2 /HPF [facility] AND [id number] 19:24:00 Test Item Value Reference Range Interpretation Comments UA RBC (test code = 0-2 /HPF See_Comment [Automa gaye message] The UA RBC) system which ge nerated this result tra nsmitted reference range : <=2. The reference range was not used to interpr et this result as satish l/abnormal. [facility] AND [id number] 19:24:00 Test Item Value Reference Range Interpretation Comments UA Leuk Est (test Moderate *ABN*(08/24/14 code = UA Leuk Est) 1:24 PM) [facility] AND [id number] 19:24:00 Test Item Value Reference Range Interpretation Comments UA Nitrite (test code Negative (08/24/14 1:24 = UA Nitrite) PM) [facility] AND [id number] 19:24:00 Test Item Value Reference Range Interpretation Comments UA Urobilinogen (test code = UA 0.2 0.1-1.0 Urobilinogen) [facility] AND [id number] 19:24:00 Test Item Value Reference Range Interpretation Comments UA Ketones (test code Negative *NA*(08/24/14 = UA Ketones) 1:24 PM) [facility] AND [id number] 19:24:00 Test Item Value Reference Range Interpretation Comments UA Blood (test code = Negative (08/24/14 1:24 UA Blood) PM) [facility] AND [id number] 19:24:00 Test Item Value Reference Range Interpretation Comments UA Bili (test code = Negative *NA*(08/24/14 UA Bili) 1:24 PM) [facility] AND [id number] 19:24:00 Test Item Value Reference Range Interpretation Comments UA Color (test code = Yellow *NA*(08/24/14 UA Color) 1:24 PM) [facility] AND [id number] 19:24:00 Test Item Value Reference Range Interpretation Comments UA Glucose (test code Negative (08/24/14 1:24 = UA Glucose) PM) [facility] AND [id number] 19:24:00 Test Item Value Reference Range Interpretation Comments UA Protein (test code Negative (08/24/14 1:24 = UA Protein) PM) [facility] AND [id number] 19:24:00 Test Item Value Reference Range Interpretation Comments UA pH (test code = UA pH) 6.0 1 5.0-8.0 [facility] AND [id number] 19:24:00 Test Item Value Reference Range Interpretation Comments UA Spec Grav (test code *NA*(08/24/14 1:24 PM) = UA Spec Grav) [facility] AND [id number] 19:24:00 Test Item Value Reference Range Interpretation [...] BUN (test code = BUN) 7 7-22 [place] 580145-01-12 19:24:00 Test Item Value Reference Range Interpretation [...] (test code = Albumin Lvl) 3.8 3.5-5.0 [place] [id number] 19:24:00 Test Item Value Reference Range Interpretation Comments Total Protein (test code = Total 8.0 6.4-8.4 Protein) [facility]2015-01-12 19:24:00 Test Item Value Reference Range Interpretation Comments A/G Ratio (test code = A/G Ratio) 0.9 0.7-1.6 [place] 580145-01-12 19:24:00 Test Item Value Reference Range Interpretation Comments AGAP (test code = AGAP) 6.9 10.0-20.0 [facility]2015-01-12 19:24:00 Test Item Value Reference Range Interpretation Comments B/C Ratio (test code = B/C Ratio) 10 6-25 [place] 580145-01-12 19:24:00 Test Item Value Reference Range Interpretation Comments Globulin (test code = Globulin) 4.2 2.0-4.0 [facility]EayhoxoRSOGTUQXBWXKP0006-31-92 19:24:00 Test Item Value Reference Range Interpretation Comments S Preg (test code = S Negative *NA*(08/24/14 Preg) 1:24 PM) [facility] HospitalFugminkQPPQKUYTMW8245-41-69 19:24:00 Test Item Value Reference Range Interpretation Comments WBC (test code = WBC) 11.3 3.7-10.4 [facility] HospitalAswyuqgIJFDLBIYII7193-02-21 19:24:00 Test Item Value Reference Range Interpretation Comments RBC (test code = RBC) 4.75 4.20-5.40 [facility] HospitalHfbxiacCESMSOVTQO2086-09-92 19:24:00 Test Item Value Reference Range Interpretation Comments Platelet (test code = Platelet) 402 133-450 [facility] H[id number] 19:24:00 Test Item Value Reference Range Interpretation Comments MCV (test code = MCV) 89.9 80.0-98.0 [facility] HospitalIxghosrNQGSMCCUQX8803-99-41 19:24:00 Test Item Value Reference Range Interpretation Comments Hct (test code = Hct) 42.7 36.0-48.0 [facility] HospitalJegirkxABJXMHGWQA7629-90-48 19:24:00 Test Item Value Reference Range Interpretation Comments Hgb (test code = Hgb) 14.5 12.0-16.0 [facility] HospitalJwwncnzZEXUXNFJIS0599-96-44 19:24:00 Test Item Value Reference Range Interpretation Comments RDW (test code = RDW) 13.5 11.5-14.5 [facility] HospitalKovktbiFVENCLBCEF5095-94-50 19:24:00 Test Item Value Reference Range Interpretation Comments MCHC (test code = MCHC) 34.0 32.0-36.0 [facility] HospitalXoubhpgQDRTOOBGLZ0211-71-35 19:24:00 Test Item Value Reference Range Interpretation Comments MCH (test code = MCH) 30.6 pg 27.0-31.0 [facility] HospitalVwojfwkFGIFOHJWTL1242-37-99 19:24:00 Test Item Value Reference Range Interpretation Comments MPV (test code = MPV) 8.1 7.4-10.4 [facility] HospitalOyegtjkFSSCLJWXXU9042-31-74 19:24:00 Test Item Value Reference Range Interpretation Comments Stomatocyte (test code = Stomatocyte) Slight [facility] HospitalQjwwtbtXNMLKOVWSL5853-47-39 19:24:00 Test Item Value Reference Range Interpretation Comments Basophils # (test code 0.1 See_Comment [Aut omated message] The = Basophils #) system which generated this result tra nsmitted reference range : <=0.2. The reference r ozzy was not used to int erpret this result as normal/abnormal . [facility] HospitalFimzughPEWMCXPRAA4332-79-94 19:24:00 Test Item Value Reference Range Interpretation Comments Eosinophils # (test code 0.2 See_Comment [A utomated message] The = Eosinophils #) system whic h generated this result tra nsmitted reference range : <=0.5. The reference r ozzy was not used to int erpret this result as normal/abnormal . [facility] HospitalHxuodfrWYKWQYXFUB0810-49-65 19:24:00 Test Item Value Reference Range Interpretation Comments Hypochrom (test code = 1+ (08/24/14 1:24 PM) Hypochrom) [facility] HospitalMuevghkOMZPHJTPEN1773-21-67 19:24:00 Test Item Value Reference Range Interpretation Comments Lymphocytes # (test code = Lymphocytes 2.8 1.0-5.5 #) [facility] HospitalBpmkxlxVXGYOBHVXA2136-22-93 19:24:00 Test Item Value Reference Range Interpretation Comments Segs-Bands # (test code = Segs-Bands #) 8.1 1.5-8.1 [place] [id number] 19:24:00 Test Item Value Reference Range Interpretation Comments Monocytes # (test code 0.2 See_Comment [Aut omated message] The = Monocytes #) system which generated this result tra nsmitted reference range : <=0.8. The reference r ozzy was not used to int erpret this result as normal/abnormal . [facility] HospitalEaxfrhmESBEIFYTCQ4545-32-90 19:24:00 Test Item Value Reference Range Interpretation Comments Lymphocytes (test code = Lymphocytes) 24.5 20.0-40.0 [facility] HospitalBjuhfirGSYRZJRUFW1507-28-80 19:24:00 Test Item Value Reference Range Interpretation Comments Segs (test code = Segs) 71.8 45.0-75.0 [facility] HospitalUggxireHXLTOUUUPW1179-39-04 19:24:00 Test Item Value Reference Range Interpretation Comments Basophils (test code = 0.6 See_Comment [Aut omated message] The Basophils) system which ge nerated this result tra nsmitted reference range : <=1.0. The reference r ozzy was not used to int erpret this result as normal/abnormal . [facility] HospitalCpgkeyxOYIIZFHFDS1049-69-56 19:24:00 Test Item Value Reference Range Interpretation Comments Monocytes (test code = Monocytes) 1.5 2.0-12.0 [facility] HospitalZaknhpeIOOWWRRDVL3428-15-08 19:24:00 Test Item Value Reference Range Interpretation Comments Eosinophils (test code = 1.6 See_Comment [A utomated message] The Eosinophils) system which ge nerated this result tra nsmitted reference range : <=4.0. The reference r ozzy was not used to int erpret this result as normal/abnormal . [facility] HospitalAteoiimANKDDWGRQN5180-97-14 19:24:00 Test Item Value Reference Range Interpretation Comments Plt Morph (test code = Normal (08/24/14 1:24 Plt Morph) PM) [facility] AND [id number] 19:24:00 Test Item Value Reference Range Interpretation Comments UA Sq Epi (test code = UA Sq Occasional /LPF Epi) [facility] AND [id number] 19:24:00 Test Item Value Reference Range Interpretation Comments UA Bacteria (test code = UA Occasional /HPF Bacteria) [facility] AND [id number] 19:24:00 Test Item Value Reference Range Interpretation Comments UA Mucus (test code = None Seen (08/24/14 UA Mucus) 1:24 PM) [facility] AND [id number] 19:24:00 Test Item Value Reference Range Interpretation Comments UA WBC (test code = UA WBC) 0-2 /HPF [facility] AND [id number] 19:24:00 Test Item Value Reference Range Interpretation Comments UA RBC (test code = 0-2 /HPF See_Comment [Automa gaye message] The UA RBC) system which ge nerated this result tra nsmitted reference range : <=2. The reference range was not used to interpr et this result as satish l/abnormal. [facility] AND [id number] 19:24:00 Test Item Value Reference Range Interpretation Comments UA Leuk Est (test Moderate *ABN*(08/24/14 code = UA Leuk Est) 1:24 PM) [facility] AND [id number] 19:24:00 Test Item Value Reference Range Interpretation Comments UA Nitrite (test code Negative (08/24/14 1:24 = UA Nitrite) PM) [facility] AND [id number] 19:24:00 Test Item Value Reference Range Interpretation Comments UA Urobilinogen (test code = UA 0.2 0.1-1.0 Urobilinogen) [facility] AND [id number] 19:24:00 Test Item Value Reference Range Interpretation Comments UA Ketones (test code Negative *NA*(08/24/14 = UA Ketones) 1:24 PM) [facility] AND [id number] 19:24:00 Test Item Value Reference Range Interpretation Comments UA Blood (test code = Negative (08/24/14 1:24 UA Blood) PM) [facility] AND [id number] 19:24:00 Test Item Value Reference Range Interpretation Comments UA Bili (test code = Negative *NA*(08/24/14 UA Bili) 1:24 PM) [facility] [id number] 19:24:00 Test Item Value Reference Range Interpretation Comments UA Color (test code = Yellow *NA*(08/24/14 UA Color) 1:24 PM) [facility] AND [id number] 19:24:00 Test Item Value Reference Range Interpretation Comments UA Glucose (test code Negative (08/24/14 1:24 = UA Glucose) PM) [facility] [id number] 19:24:00 Test Item Value Reference Range Interpretation Comments UA Protein (test code Negative (08/24/14 1:24 = UA Protein) PM) [facility] [id number] 19:24:00 Test Item Value Reference Range Interpretation Comments UA pH (test code = UA pH) 6.0 1 5.0-8.0 [facility] [id number] 19:24:00 Test Item Value Reference Range Interpretation Comments UA Spec Grav (test code *NA*(08/24/14 1:24 PM) = UA Spec Grav) [facility] AND [id number] 19:24:00 Test Item Value Reference Range Interpretation [...] interpr et this result as satish l/abnormal. [place] [id number] 19:24:00 Test Item Value Reference Range Interpretation Comments AST (test code = AST) 12 See_Comment [Auto mated message] The system which ge nerated this result transmit gaye reference range : <=37. The reference range was not used to interpr et this result as satish l/abnormal. [place] [id number] 19:24:00 Test Item Value Reference Range Interpretation Comments Albumin Lvl (test code = Albumin Lvl) 3.8 3.5-5.0 [place] [id number] 19:24:00 Test Item Value Reference Range Interpretation [...] Globulin (test code = Globulin) 4.2 2.0-4.0 [facility]ZTM[facility]INSSYIHO7756-22-14 19:24:00 Test Item Value Reference Range Interpretation Comments S Preg (test code = S Negative *NA*(08/24/14 Preg) 1:24 PM) [id number] 19:24:00 Test Item Value Reference Range Interpretation Comments WBC (test code = WBC) 11.3 3.7-10.4 [facility] HospitalWfylemeLAADKAHJMT9920-08-41 19:24:00 Test Item Value Reference Range Interpretation Comments RBC (test code = RBC) 4.75 4.20-5.40 [facility] Hospit[id number] 19:24:00 Test Item Value Reference Range Interpretation Comments Platelet (test code = Platelet) 402 133-450 [facility] HospitalNmvqkkbQSVWEMTZTF4405-20-43 19:24:00 Test Item Value Reference Range Interpretation Comments MCV (test code = MCV) 89.9 80.0-98.0 [facility] HospitalLfrgshdYSCWQENMQA8293-83-01 19:24:00 Test Item Value Reference Range Interpretation Comments Hct (test code = Hct) 42.7 36.0-48.0 [facility] HospitalKrrbcqrQMHPPSQTSA4920-04-86 19:24:00 Test Item Value Reference Range Interpretation Comments Hgb (test code = Hgb) 14.5 12.0-16.0 [facility] HospitalXsdiurqAPLNTJRXFC9920-26-67 19:24:00 Test Item Value Reference Range Interpretation Comments RDW (test code = RDW) 13.5 11.5-14.5 [facility] HospitalYkewimnNQCZYCFKKI7354-94-08 19:24:00 Test Item Value Reference Range Interpretation Comments MCHC (test code = MCHC) 34.0 32.0-36.0 [facility] HospitalDrmvrltOPRQRUHTPS8495-10-68 19:24:00 Test Item Value Reference Range Interpretation Comments MCH (test code = MCH) 30.6 pg 27.0-31.0 [facility] HospitalXcgcmbwSUZVEXLDLL7011-99-63 19:24:00 Test Item Value Reference Range Interpretation Comments MPV (test code = MPV) 8.1 7.4-10.4 [facility] HospitalFzyvdgeTKVNICIKDF4765-32-27 19:24:00 Test Item Value Reference Range Interpretation Comments Stomatocyte (test code = Stomatocyte) Slight [facility] Hospit[id number] 19:24:00 Test Item Value Reference Range Interpretation Comments Basophils # (test code 0.1 See_Comment [Aut omated message] The = Basophils #) system which generated this result tra nsmitted reference range : <=0.2. The reference r ozzy was not used to int erpret this result as normal/abnormal . [facility] HospitalXbjwctiCRZJTUDWLI5826-20-21 19:24:00 Test Item Value Reference Range Interpretation Comments Eosinophils # (test code 0.2 See_Comment [A utomated message] The = Eosinophils #) system whic h generated this result tra nsmitted reference range : <=0.5. The reference r ozzy was not used to int erpret this result as normal/abnormal . [facility] H[id number] 19:24:00 Test Item Value Reference Range Interpretation Comments Hypochrom (test code = 1+ (08/24/14 1:24 PM) Hypochrom) [facility] HospitalDjugwutTJRYBHKEMX2060-78-04 19:24:00 Test Item Value Reference Range Interpretation Comments Lymphocytes # (test code = Lymphocytes 2.8 1.0-5.5 #) [facility] HospitalKswepclGRVHDRMNFF8236-98-44 19:24:00 Test Item Value Reference Range Interpretation Comments Segs-Bands # (test code = Segs-Bands #) 8.1 1.5-8.1 [place] [id number] 19:24:00 Test Item Value Reference Range Interpretation Comments Monocytes # (test code 0.2 See_Comment [Aut omated message] The = Monocytes #) system which generated this result tra nsmitted reference range : <=0.8. The reference r ozzy was not used to int erpret this result as normal/abnormal . [facility] HospitalZyokylfTABHRBZOGH1552-27-24 19:24:00 Test Item Value Reference Range Interpretation Comments Lymphocytes (test code = Lymphocytes) 24.5 20.0-40.0 [facility] HospitalNvfsinmBDFJOQJKEE9691-68-45 19:24:00 Test Item Value Reference Range Interpretation Comments Segs (test code = Segs) 71.8 45.0-75.0 [facility] HospitalXfdnwayMMBRFIPILK8578-75-40 19:24:00 Test Item Value Reference Range Interpretation Comments Basophils (test code = 0.6 See_Comment [Aut omated message] The Basophils) system which ge nerated this result tra nsmitted reference range : <=1.0. The reference r ozzy was not used to int erpret this result as normal/abnormal . [facility] HospitalRalaiozYVJRZQJTXR9468-83-65 19:24:00 Test Item Value Reference Range Interpretation Comments Monocytes (test code = Monocytes) 1.5 2.0-12.0 [facility] H[id number] 19:24:00 Test Item Value Reference Range Interpretation Comments Eosinophils (test code = 1.6 See_Comment [A utomated message] The Eosinophils) system which ge nerated this result tra nsmitted reference range : <=4.0. The reference r ozzy was not used to int erpret this result as normal/abnormal . [facility]XubdpkcHYSUJZRQGJ2445-61-44 19:24:00 Test Item Value Reference Range Interpretation Comments Plt Morph (test code = Normal (08/24/14 1:24 Plt Morph) PM) [facility] [id number] 19:24:00 Test Item Value Reference Range Interpretation Comments UA Sq Epi (test code = UA Sq Occasional /LPF Epi) [facility] AND [id number] 19:24:00 Test Item Value Reference Range Interpretation Comments UA Bacteria (test code = UA Occasional /HPF Bacteria) [facility] AND [id number] 19:24:00 Test Item Value Reference Range Interpretation Comments UA Mucus (test code = None Seen (08/24/14 UA Mucus) 1:24 PM) [facility] AND [id number] 19:24:00 Test Item Value Reference Range Interpretation Comments UA WBC (test code = UA WBC) 0-2 /HPF [facility] [id number] 19:24:00 Test Item Value Reference Range Interpretation Comments UA RBC (test code = 0-2 /HPF See_Comment [Automa gaye message] The UA RBC) system which ge nerated this result tra nsmitted reference range : <=2. The reference range was not used to interpr et this result as satish l/abnormal. [facility] AND [id number] 19:24:00 Test Item Value Reference Range Interpretation Comments UA Leuk Est (test Moderate *ABN*(08/24/14 code = UA Leuk Est) 1:24 PM) [facility] AND [id number] 19:24:00 Test Item Value Reference Range Interpretation Comments UA Nitrite (test code Negative (08/24/14 1:24 = UA Nitrite) PM) [facility] AND [id number] 19:24:00 Test Item Value Reference Range Interpretation Comments UA Urobilinogen (test code = UA 0.2 0.1-1.0 Urobilinogen) [facility] AND [id number] 19:24:00 Test Item Value Reference Range Interpretation Comments UA Ketones (test code Negative *NA*(08/24/14 = UA Ketones) 1:24 PM) [facility] [id number] 19:24:00 Test Item Value Reference Range Interpretation Comments UA Blood (test code = Negative (08/24/14 1:24 UA Blood) PM) [facility] [id number] 19:24:00 Test Item Value Reference Range Interpretation Comments UA Bili (test code = Negative *NA*(08/24/14 UA Bili) 1:24 PM) [facility] [id number] 19:24:00 Test Item Value Reference Range Interpretation Comments UA Color (test code = Yellow *NA*(08/24/14 UA Color) 1:24 PM) [facility] AND [id number] 19:24:00 Test Item Value Reference Range Interpretation Comments UA Glucose (test code Negative (08/24/14 1:24 = UA Glucose) PM) [facility] AND [id number] 19:24:00 Test Item Value Reference Range Interpretation Comments UA Protein (test code Negative (08/24/14 1:24 = UA Protein) PM) [facility] [id number] 19:24:00 Test Item Value Reference Range Interpretation Comments UA pH (test code = UA pH) 6.0 1 5.0-8.0 [facility] [id number] 19:24:00 Test Item Value Reference Range Interpretation Comments UA Spec Grav (test code *NA*(08/24/14 1:24 PM) = UA Spec Grav) [facility] [id number] 19:24:00 Test Item Value Reference Range Interpretation Comments UA Turbidity (test code = Clear (08/24/14 1:24 UA Turbidity) PM) [facility]annCHE[facility] [id number] 19:24:00 Test Item Value Reference Range Interpretation Comments Lipase Lvl (test code = Lipase Lvl) 104 73-393 [facility]annCHE[facility] [id number] 19:24:00 Test Item Value Reference Range Interpretation Comments eGFR (test code = eGFR) 109 [facility]ann[facility] [id number] 19:24:00 Test Item Value Reference Range Interpretation Comments Bili Total (test code = Bili Total) 0.6 0.2-1.3 [facility]2015-01-12 19:24:00 Test Item Value Reference Range Interpretation Comments Alk Phos (test code = Alk Phos) 72 39-136 [facility]2015-01-12 19:24:00 Test Item Value Reference Range Interpretation Comments Calcium Lvl (test code = Calcium Lvl) 8.8 8.5-10.5 [place] [id number] 19:24:00 Test Item Value Reference Range Interpretation [...] interpr et this result as satish l/abnormal. [place] [id number] 19:24:00 Test Item Value Reference Range Interpretation [...] Globulin (test code = Globulin) 4.2 2.0-4.0 [facility]IfzyqwbRJSITWLALDKRS2294-17-38 19:24:00 Test Item Value Reference Range Interpretation Comments S Preg (test code = S Negative *NA*(08/24/14 Preg) 1:24 PM) [facility] H[id number] 19:24:00 Test Item Value Reference Range Interpretation Comments WBC (test code = WBC) 11.3 3.7-10.4 [facility] HospitalIovirmeMENUUKTQXG5506-15-69 19:24:00 Test Item Value Reference Range Interpretation Comments RBC (test code = RBC) 4.75 4.20-5.40 [facility] HospitalMwzgpauNJBKWYDPJG2246-99-89 19:24:00 Test Item Value Reference Range Interpretation Comments Platelet (test code = Platelet) 402 133-450 [facility] HospitalFajdtvtAOZLRFHSKY4842-52-42 19:24:00 Test Item Value Reference Range Interpretation Comments MCV (test code = MCV) 89.9 80.0-98.0 [facility] HospitalFsxburuBFNZNIUBVY6259-23-01 19:24:00 Test Item Value Reference Range Interpretation Comments Hct (test code = Hct) 42.7 36.0-48.0 [facility] HospitalPfwcupiSVQBPWKAPU8835-83-10 19:24:00 Test Item Value Reference Range Interpretation Comments Hgb (test code = Hgb) 14.5 12.0-16.0 [facility] HospitalPimtlxxIOEHIPJFHM6651-22-15 19:24:00 Test Item Value Reference Range Interpretation Comments RDW (test code = RDW) 13.5 11.5-14.5 [facility] HospitalZvundjwXKSUAEJGSB1153-44-48 19:24:00 Test Item Value Reference Range Interpretation Comments MCHC (test code = MCHC) 34.0 32.0-36.0 [facility] HospitalBiufsszHQSDLGSCAZ4552-47-18 19:24:00 Test Item Value Reference Range Interpretation Comments MCH (test code = MCH) 30.6 pg 27.0-31.0 [facility] HospitalCjhiiunAGIAAUZQRV5990-74-86 19:24:00 Test Item Value Reference Range Interpretation Comments MPV (test code = MPV) 8.1 7.4-10.4 [facility] HospitalM[id number] 19:24:00 Test Item Value Reference Range Interpretation Comments Stomatocyte (test code = Stomatocyte) Slight [facility] Hospit[id number] 19:24:00 Test Item Value Reference Range Interpretation Comments Basophils # (test code 0.1 See_Comment [Aut omated message] The = Basophils #) system which generated this result tra nsmitted reference range : <=0.2. The reference r ozzy was not used to int erpret this result as normal/abnormal . [facility] HospitalYjmkdwpJUIASZSRYW6916-34-97 19:24:00 Test Item Value Reference Range Interpretation Comments Eosinophils # (test code 0.2 See_Comment [A utomated message] The = Eosinophils #) system whic h generated this result tra nsmitted reference range : <=0.5. The reference r ozzy was not used to int erpret this result as normal/abnormal . [facility] HospitalTrbdnboANDCGELONF0131-10-38 19:24:00 Test Item Value Reference Range Interpretation Comments Hypochrom (test code = 1+ (08/24/14 1:24 PM) Hypochrom) [facility] H[id number] 19:24:00 Test Item Value Reference Range Interpretation Comments Lymphocytes # (test code = Lymphocytes 2.8 1.0-5.5 #) [facility] HospitalKvqtumcNFLOUCSADK0353-02-39 19:24:00 Test Item Value Reference Range Interpretation Comments Segs-Bands # (test code = Segs-Bands #) 8.1 1.5-8.1 [facility] HospitalAlltqbnHBFIQXFNRU7886-34-86 19:24:00 Test Item Value Reference Range Interpretation Comments Monocytes # (test code 0.2 See_Comment [Aut omated message] The = Monocytes #) system which generated this result tra nsmitted reference range : <=0.8. The reference r ozzy was not used to int erpret this result as normal/abnormal . [facility] HospitalQlmohobRAAXQZAACG4452-58-91 19:24:00 Test Item Value Reference Range Interpretation Comments Lymphocytes (test code = Lymphocytes) 24.5 20.0-40.0 [facility] Ho[id number] 19:24:00 Test Item Value Reference Range Interpretation Comments Segs (test code = Segs) 71.8 45.0-75.0 [facility] HospitalFbxqxmnWNSZBPBXRT6913-49-14 19:24:00 Test Item Value Reference Range Interpretation Comments Basophils (test code = 0.6 See_Comment [Aut omated message] The Basophils) system which ge nerated this result tra nsmitted reference range : <=1.0. The reference r ozzy was not used to int erpret this result as normal/abnormal . [facility] HospitalWvjjkfvOWBCBNSWHI3639-69-05 19:24:00 Test Item Value Reference Range Interpretation Comments Monocytes (test code = Monocytes) 1.5 2.0-12.0 [facility] HospitalYkoxylyIXFGABZNAX5029-02-20 19:24:00 Test Item Value Reference Range Interpretation Comments Eosinophils (test code = 1.6 See_Comment [A utomated message] The Eosinophils) system which ge nerated this result tra nsmitted reference range : <=4.0. The reference r ozzy was not used to int erpret this result as normal/abnormal . [facility] HospitalLmjvbkaAVAWTZPKZX3734-80-94 19:24:00 Test Item Value Reference Range Interpretation Comments Plt Morph (test code = Normal (08/24/14 1:24 Plt Morph) PM) [facility]2015-01-12 19:24:00 Test Item Value Reference Range Interpretation Comments UA Sq Epi (test code = UA Sq Occasional /LPF Epi) [facility] [id number] 19:24:00 Test Item Value Reference Range Interpretation Comments UA Bacteria (test code = UA Occasional /HPF Bacteria) [facility] [id number] 19:24:00 Test Item Value Reference Range Interpretation Comments UA Mucus (test code = None Seen (08/24/14 UA Mucus) 1:24 PM) [facility] [id number] 19:24:00 Test Item Value Reference Range Interpretation Comments UA WBC (test code = UA WBC) 0-2 /HPF [facility] [id number] 19:24:00 Test Item Value Reference Range Interpretation Comments UA RBC (test code = 0-2 /HPF See_Comment [Automa gaye message] The UA RBC) system which ge nerated this result tra nsmitted reference range : <=2. The reference range was not used to interpr et this result as satish l/abnormal. [facility] AND [id number] 19:24:00 Test Item Value Reference Range Interpretation Comments UA Leuk Est (test Moderate *ABN*(08/24/14 code = UA Leuk Est) 1:24 PM) [facility] [id number] 19:24:00 Test Item Value Reference Range Interpretation Comments UA Nitrite (test code Negative (08/24/14 1:24 = UA Nitrite) PM) [facility] [id number] 19:24:00 Test Item Value Reference Range Interpretation Comments UA Urobilinogen (test code = UA 0.2 0.1-1.0 Urobilinogen) [facility] [id number] 19:24:00 Test Item Value Reference Range Interpretation Comments UA Ketones (test code Negative *NA*(08/24/14 = UA Ketones) 1:24 PM) [facility] [id number] 19:24:00 Test Item Value Reference Range Interpretation Comments UA Blood (test code = Negative (08/24/14 1:24 UA Blood) PM) [facility] [id number] 19:24:00 Test Item Value Reference Range Interpretation Comments UA Bili (test code = Negative *NA*(08/24/14 UA Bili) 1:24 PM) [facility] [id number] 19:24:00 Test Item Value Reference Range Interpretation Comments UA Color (test code = Yellow *NA*(08/24/14 UA Color) 1:24 PM) [facility] [id number] 19:24:00 Test Item Value Reference Range Interpretation Comments UA Glucose (test code Negative (08/24/14 1:24 = UA Glucose) PM) [facility] [id number] 19:24:00 Test Item Value Reference Range Interpretation Comments UA Protein (test code Negative (08/24/14 1:24 = UA Protein) PM) [facility] [id number] 19:24:00 Test Item Value Reference Range Interpretation Comments UA pH (test code = UA pH) 6.0 1 5.0-8.0 [facility] [id number] 19:24:00 Test Item Value Reference Range Interpretation Comments UA Spec Grav (test code *NA*(08/24/14 1:24 PM) = UA Spec Grav) [facility] [id number] 19:24:00 Test Item Value Reference Range Interpretation [...] (test code = Albumin Lvl) 3.8 3.5-5.0 [place] [id number] 19:24:00 Test Item Value Reference Range Interpretation [...] Globulin (test code = Globulin) 4.2 2.0-4.0 [facility]XydcrhcDYGXQHHNUPRMP4608-00-38 19:24:00 Test Item Value Reference Range Interpretation Comments S Preg (test code = S Negative *NA*(08/24/14 Preg) 1:24 PM) [facility] HospitalDdscouhDWRFBAUIQH4667-90-09 19:24:00 Test Item Value Reference Range Interpretation Comments WBC (test code = WBC) 11.3 3.7-10.4 [facility] HospitalSbsymfkLVSRLITSRV1585-69-59 19:24:00 Test Item Value Reference Range Interpretation Comments RBC (test code = RBC) 4.75 4.20-5.40 [facility] HospitalDckpioyLSOXZDYBPW0955-18-74 19:24:00 Test Item Value Reference Range Interpretation Comments Platelet (test code = Platelet) 402 133-450 [facility] HospitalLxzerkpKIFRHWTVHM5131-13-56 19:24:00 Test Item Value Reference Range Interpretation Comments MCV (test code = MCV) 89.9 80.0-98.0 [facility] HospitalZbcjtfvYOLFJSUNTD5082-05-83 19:24:00 Test Item Value Reference Range Interpretation Comments Hct (test code = Hct) 42.7 36.0-48.0 [facility] HospitalQkxcqbzLHEWSMJNUP8832-31-42 19:24:00 Test Item Value Reference Range Interpretation Comments Hgb (test code = Hgb) 14.5 12.0-16.0 [facility] HospitalEjzglprWHUWLMDZZG0433-41-35 19:24:00 Test Item Value Reference Range Interpretation Comments RDW (test code = RDW) 13.5 11.5-14.5 [facility] HospitalIqarrbdUWZHDIEZHF9060-01-23 19:24:00 Test Item Value Reference Range Interpretation Comments MCHC (test code = MCHC) 34.0 32.0-36.0 [facility] HospitalVtxrzomRQGNUMGQLN3201-12-14 19:24:00 Test Item Value Reference Range Interpretation Comments MCH (test code = MCH) 30.6 pg 27.0-31.0 [facility] HospitalFjwmuplAXVRKBKKPT1601-90-30 19:24:00 Test Item Value Reference Range Interpretation Comments MPV (test code = MPV) 8.1 7.4-10.4 [facility] HospitalCqicdxjDLSVLCGOPW8818-12-62 19:24:00 Test Item Value Reference Range Interpretation Comments Stomatocyte (test code = Stomatocyte) Slight [facility] HospitalKtgryrmYFLTCXTCME5012-92-27 19:24:00 Test Item Value Reference Range Interpretation Comments Basophils # (test code 0.1 See_Comment [Aut omated message] The = Basophils #) system which generated this result tra nsmitted reference range : <=0.2. The reference r ozzy was not used to int erpret this result as normal/abnormal . [facility] HospitalUhccthyROYUHYTWAX8588-21-50 19:24:00 Test Item Value Reference Range Interpretation Comments Eosinophils # (test code 0.2 See_Comment [A utomated message] The = Eosinophils #) system whic h generated this result tra nsmitted reference range : <=0.5. The reference r ozzy was not used to int erpret this result as normal/abnormal . [facility] HospitalGammrfkCHAVNMEQPT5342-31-80 19:24:00 Test Item Value Reference Range Interpretation Comments Hypochrom (test code = 1+ (08/24/14 1:24 PM) Hypochrom) [facility] [id number] 19:24:00 Test Item Value Reference Range Interpretation Comments Lymphocytes # (test code = Lymphocytes 2.8 1.0-5.5 #) [id number] 19:24:00 Test Item Value Reference Range Interpretation Comments Segs-Bands # (test code = Segs-Bands #) 8.1 1.5-8.1 [facility] [id number] 19:24:00 Test Item Value Reference Range Interpretation Comments Monocytes # (test code 0.2 See_Comment [Aut omated message] The = Monocytes #) system which generated this result tra nsmitted reference range : <=0.8. The reference r ozzy was not used to int erpret this result as normal/abnormal . [facility] [id number] 19:24:00 Test Item Value Reference Range Interpretation Comments Lymphocytes (test code = Lymphocytes) 24.5 20.0-40.0 [facility] [id number] 19:24:00 Test Item Value Reference Range Interpretation Comments Segs (test code = Segs) 71.8 45.0-75.0 [facility] [id number] 19:24:00 Test Item Value Reference Range Interpretation Comments Basophils (test code = 0.6 See_Comment [Aut omated message] The Basophils) system which ge nerated this result tra nsmitted reference range : <=1.0. The reference r ozzy was not used to int erpret this result as normal/abnormal . [facility] [id number] 19:24:00 Test Item Value Reference Range Interpretation Comments Monocytes (test code = Monocytes) 1.5 2.0-12.0 [facility] [id number] 19:24:00 Test Item Value Reference Range Interpretation Comments Eosinophils (test code = 1.6 See_Comment [A utomated message] The Eosinophils) system which ge nerated this result tra nsmitted reference range : <=4.0. The reference r ozzy was not used to int erpret this result as normal/abnormal . [facility] [id number] 19:24:00 Test Item Value Reference Range Interpretation Comments Plt Morph (test code = Normal (08/24/14 1:24 Plt Morph) PM) [facility] AND [id number] 19:24:00 Test Item Value Reference Range Interpretation Comments UA Sq Epi (test code = UA Sq Occasional /LPF Epi) [facility] AND [id number] 19:24:00 Test Item Value Reference Range Interpretation Comments UA Bacteria (test code = UA Occasional /HPF Bacteria) [facility] AND [id number] 19:24:00 Test Item Value Reference Range Interpretation Comments UA Mucus (test code = None Seen (08/24/14 UA Mucus) 1:24 PM) [facility] AND [id number] 19:24:00 Test Item Value Reference Range Interpretation Comments UA WBC (test code = UA WBC) 0-2 /HPF [facility] AND [id number] 19:24:00 Test Item Value Reference Range Interpretation Comments UA RBC (test code = 0-2 /HPF See_Comment [Automa gaye message] The UA RBC) system which ge nerated this result tra nsmitted reference range : <=2. The reference range was not used to interpr et this result as satish l/abnormal. [facility] AND [id number] 19:24:00 Test Item Value Reference Range Interpretation Comments UA Leuk Est (test Moderate *ABN*(08/24/14 code = UA Leuk Est) 1:24 PM) [facility] AND [id number] 19:24:00 Test Item Value Reference Range Interpretation Comments UA Nitrite (test code Negative (08/24/14 1:24 = UA Nitrite) PM) [facility] AND [id number] 19:24:00 Test Item Value Reference Range Interpretation Comments UA Urobilinogen (test code = UA 0.2 0.1-1.0 Urobilinogen) [facility] AND [id number] 19:24:00 Test Item Value Reference Range Interpretation Comments UA Ketones (test code Negative *NA*(08/24/14 = UA Ketones) 1:24 PM) [facility] AND [id number] 19:24:00 Test Item Value Reference Range Interpretation Comments UA Blood (test code = Negative (08/24/14 1:24 UA Blood) PM) [facility] AND [id number] 19:24:00 Test Item Value Reference Range Interpretation Comments UA Bili (test code = Negative *NA*(08/24/14 UA Bili) 1:24 PM) [facility] AND [id number] 19:24:00 Test Item Value Reference Range Interpretation Comments UA Color (test code = Yellow *NA*(08/24/14 UA Color) 1:24 PM) [facility] AND [id number] 19:24:00 Test Item Value Reference Range Interpretation Comments UA Glucose (test code Negative (08/24/14 1:24 = UA Glucose) PM) [facility] AND [id number] 19:24:00 Test Item Value Reference Range Interpretation Comments UA Protein (test code Negative (08/24/14 1:24 = UA Protein) PM) [facility] AND [id number] 19:24:00 Test Item Value Reference Range Interpretation Comments UA pH (test code = UA pH) 6.0 1 5.0-8.0 [facility] AND [id number] 19:24:00 Test Item Value Reference Range Interpretation Comments UA Spec Grav (test code *NA*(08/24/14 1:24 PM) = UA Spec Grav) [facility] AND [id number] 19:24:00 Test Item Value Reference Range Interpretation Comments UA Turbidity (test code = Clear (08/24/14 1:24 UA Turbidity) PM) [facility] Date/Time Note Provider Source 2016-02-13 01:41:05-00:00 Chest 1view DX 02/13/2016 1:07 AM T [facility] Ordering Physician: Malorie Fishman MD CLINICAL HISTORY: Chest pain; TECHNIQUE: AP view of the chest were obtained. COMPARISON: None FINDINGS: Lungs are clear. No pleural effusion of pneumothorax is present. Cardiomediastinal silhouette is normal. Bones are normal. IMPRESSION: No acute abnormality of the chest. SL: LAILA 2016-02-13 01:41:05-00:00 Chest 1view DX 02/13/2016 1:07 AM [facility] Ordering Physician: Malorie Fishman MD CLINICAL HISTORY: Chest pain; TECHNIQUE: AP view of the chest were obtained. COMPARISON: None FINDINGS: Lungs are clear. No pleural effusion of pneumothorax is present. Cardiomediastinal silhouette is normal. Bones are normal. IMPRESSION: No acute abnormality of the chest. SL: LAILA 2016-02-13 01:41:05-00:00 Chest 1view DX 02/13/2016 1:07 AM T [facility] Ordering Physician: Malorie Fishman MD CLINICAL HISTORY: Chest pain; TECHNIQUE: AP view of the chest were obtained. COMPARISON: None FINDINGS: Lungs are clear. No pleural effusion of pneumothorax is present. Cardiomediastinal silhouette is normal. Bones are normal. IMPRESSION: No acute abnormality of the chest. SL: LAILA 2016-02-13 01:41:05-00:00 Chest 1view DX 02/13/2016 1:07 AM [facility] Ordering Physician: Malorie Fishman MD CLINICAL HISTORY: Chest pain; TECHNIQUE: AP view of the chest were obtained. COMPARISON: None FINDINGS: Lungs are clear. No pleural effusion of pneumothorax is present. Cardiomediastinal silhouette is normal. Bones are normal. IMPRESSION: No acute abnormality of the chest. SL: NINI 2016-02-13 01:41:05-00:00 Chest 1view DX 02/13/2016 1:07 AM [facility] Ordering Physician: Malorie Fishman MD CLINICAL HISTORY: Chest pain; TECHNIQUE: AP view of the chest were obtained. COMPARISON: None FINDINGS: Lungs are clear. No pleural effusion of pneumothorax is present. Cardiomediastinal silhouette is normal. Bones are normal. IMPRESSION: No acute abnormality of the chest. SL: LAILA 2015-06-08 15:25:56-00:00 EXAM: US PELVIS TRANSABDOMINAL [facility] [place] EXAM: US PELVIS TRANSVAGINAL INDICATION: Leiomyoma. [...] ndicated. 2015-06-08 15:25:56-00:00 EXAM: US PELVIS TRANSABDOMINAL [facility] [place] EXAM: US PELVIS TRANSVAGINAL INDICATION: Leiomyoma. [...] ndicated. 2015-06-08 15:25:56-00:00 EXAM: US PELVIS TRANSABDOMINAL [facility] EXAM: US PELVIS TRANSVAGINAL INDICATION: Leiomyoma. COMPARISON: [...] ndicated. 2015-06-08 15:25:56-00:00 EXAM: US PELVIS TRANSABDOMINAL [facility] [place] EXAM: US PELVIS TRANSVAGINAL INDICATION: Leiomyoma. [...] ndicated. 2015-06-08 15:25:56-00:00 EXAM: US PELVIS TRANSABDOMINAL [facility] EXAM: US PELVIS TRANSVAGINAL INDICATION: Leiomyoma. COMPARISON: [...]
--- NOTE | 2023-04-25 21:00 | RAD REPORT ---
EXAM DESCRIPTION: CT - Head Brain Wo Cont - 04/25/2023 8:36 pm CLINICAL HISTORY: numbness left arm COMPARISON: Head Brain Wo Cont dated 12/23/2021 TECHNIQUE: Noncontrast head CT images were obtained without IV contrast. Multiplanar reformats were generated and reviewed. All CT scans are performed using dose optimization technique as appropriate and may include automated exposure control or mA/KV adjustment according to patient size. FINDINGS: No intracranial hemorrhage, mass, or edema. Midline structures are unremarkable. Normal ventricular caliber for age. Ugzman-white matter differentiation is preserved, without evidence of acute infarct. No abnormal extra- axial fluid collections. Mastoid air cells and visualized portions of the paranasal sinuses are clear. No acute bony findings. IMPRESSION: No evidence of an acute intracranial process.
--- NOTE | 2023-04-25 21:13 | RAD REPORT ---
EXAM DESCRIPTION: CT - Abdomen Pelvis Wo Contrast - 04/25/2023 8:37 pm CLINICAL HISTORY: abd pain, fever, recent diverticulitis COMPARISON: Abdomen Pelvis Wo Contrast dated 02/14/2023; Abdomen Pelvis Wo Contrast dated 12/15/2022 ; Abdomen Pelvis Wo Contrast dated 12/12/2022; Stone Protocol dated 01/11/2022 TECHNIQUE: Thin cut axial CT imaging of the abdomen and pelvis was performed without IV contrast. Mu ltiplanar reformats were generated and reviewed. All CT scans are performed using dose optimization technique as appropriate and may include automated exposure control or mA/KV adjustment according to patient size. FINDINGS: No suspicious findings in the lung bases. 4 millimeter right basal granuloma. The liver, spleen, adrenal glands, and pancreas show no suspicious findings. Gallbladder was surgical ly removed. Symmetric renal contour, without suspicious parenchymal findings within limits of noncontrast techniq ue. No evidence of radiopaque calculi or hydroureteronephrosis. No dilated bowel loops or bowel wall thickening. No free air, free fluid or inflammatory stranding. N o hernia, mass or bulky lymphadenopathy. IUD in place. The urinary bladder is decompressed limiting evaluation. No suspicious bony findings. IMPRESSION: No acute intra-abdominal process.
[2023-04-25 21:27] LABS: Hematocrit 42.4 % (36.0-45.0); Lymphocytes % 26.7 % (15.3-44.8); MPV 7.8 fL (7.6-11.3); Platelets 400 thou/uL (152-406); RBC Red Blood Cell Count 4.82 M/uL (3.86-4.86)
[2023-04-25 21:35] LABS: Protime INR 1.15
[2023-04-25 21:48] LABS: Albumin 3.7 g/dL (3.4-5.0); Bilirubin Total 0.8 mg/dL (0.2-1.0); Potassium 3.2 mEq/L (3.5-5.1); Protein, Total 7.2 g/dL (6.4-8.2); SARS-CoV-2 Antigen Rapid Res Negative (Negative)
--- NOTE | 2023-04-25 21:52 | RAD REPORT ---
EXAM DESCRIPTION: RADChest Single View04/25/2023 9:13 pm CLINICAL HISTORY: tachypnea COMPARISON: Chest Single View dated 12/15/2022; Chest Single View dated 10/14/2022; Chest Single View da gaye 02/11/2022 TECHNIQUE: Portable AP view of the chest. FINDINGS: The lungs are clear. No pneumothorax or effusion. The cardiomediastinal contours are unre markable. IMPRESSION: No acute cardiopulmonary process.
[2023-04-25] MEDS ORDERED: NA CHLORIDE 0.9% 500 ML ONE (23:14)
[2023-04-26] MEDS ORDERED: MECLIZINE HCL 12.5 MG TAB ONE (00:14)
--- NOTE | 2023-04-26 01:28 | EDPHYS ---
Physician Documentation [facility] Name: Shanna Nur Age: 47 yrs Sex: Female : 1975 Arrival Date: 04/25/2023 Time: 19:46 Bed 19 Private MD: ED Physician Leo Diop HPI: 04/25 21:00 This 47 yrs old Female presents to ER via Wheelchair with complaints of Low Back Pain, rn General Weakness, Pain With Urination. 21:00 The patient presents with pain that is acute. 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 The symptoms are located in the low back. Onset: The symptoms/episode began/occurred 1 week(s) ago. Modifying factors: The patient symptoms are alleviated by nothing, the patient symptoms are aggravated by nothing. Severity of symptoms: At their worst the symptoms were moderate, in the emergency department the symptoms are unchanged. The patient has not experienced similar symptoms in the past. The patient has been recently seen by a physician:. Patient reports admitted to the hospital last week for diverticulitis and GI bleeding. Bleeding stopped on its own and did not require blood transfusion. Reports also diagnosed with a UTI at that time and sent home with antibiotics. Reports has not felt well since leaving the hospital with persistent back pain and lower abdominal pressure. Reports 102 fever. Denies any chest pain or trouble breathing. Reports generalized fatigue and malaise. FINISH REMOVER: 20:04 LMP 04/22/2023 as6 Historical: - Allergies: 20:04 Ibuprofen; as6 20:04 Iodine (Anaphylaxis); as6 20:04 Latex, Natural Rubber; as6 20:04 Levaquin; as6 20:04 Levaquin IV; as6 20:04 Phenergan; as6 20:04 SEAFOOD; as6 20:04 Toradol; as6 20:04 tramadol; as6 20:04 Ultram; as6 20:04 Vancomycin; as6 - PMHx: 20:04 Atrial fibrillation; Seizure; TBI; as6 - PSHx: 20:04 Adenoid excision; Appendectomy; Cholecystectomy; L knee SX; Tonsillectomy; tubal as6 ligation; - Immunization history:: Client reports having NOT received the Covid vaccine. - Social history:: Smoking status: Patient denies any tobacco usage or history of. - Family history:: not pertinent. - Hospitalizations: : No recent hospitalization is reported. ROS: 21:00 Constitutional: Positive for fever and chills Cardiovascular: Negative for chest pain, rn palpitations, and edema, Respiratory: Negative for shortness of breath, cough, wheezing, and pleuritic chest pain, Abdomen/GI: Negative for vomiting and constipation, positive for nonbloody diarrhea Back: Positive for low back pain MS/Extremity: Negative for injury and deformity, Skin: Negative for injury, rash, and discoloration, Neuro: Positive for headache and generalized weakness. Also reports numbness and tingling to both arms and legs Exam: 21:00 Constitutional: This is a well developed, well nourished patient who is awake, alert, rn and in no acute distress. Head/Face: Normocephalic, atraumatic. ENT: Dry mucous membranes Cardiovascular: Tachycardic, regular. No pulse deficits Respiratory: Mild tachypnea but speaking full sentences Abdomen/GI: Soft, non-tender, no rebound Skin: Warm, dry MS/ Extremity: Pulses equal, no cyanosis. Neuro: Awake and alert, GCS 15, oriented to person, place, time, and situation. Cranial nerves II-XII grossly intact. Motor strength 4/5 in all extremities. Sensory grossly intact. NO drift noted, seems weak all over and not unilateral. Watched her walk on her own to lobby without assistance to look for her phone. Vital Signs: 20:04 BP 129 / 85; Pulse 115; Resp 18 S; Temp 98.6(TE); Pulse Ox 98% on R/A; Weight 68.04 kg as6 (R); Height 5 ft. 3 in. (R); Pain 6/10; 21:28 BP 113 / 75; Pulse 92; Resp 19; Pulse Ox 98% on R/A; jb4 22:48 BP 119 / 83; Pulse 81; Resp 16; Pulse Ox 98% on R/A; jb4 04/26 00:28 BP 114 / 67; Pulse 80; Resp 16; Pulse Ox 99% on R/A; jb4 03:59 BP 124 / 82; Pulse 86; Resp 22 S; Pulse Ox 98% on R/A; as6 04/25 20:04 Body Mass Index 26.57 (68.04 kg, 160.02 cm) as6 04/25 20:04 Pain Scale: Adult as6 MDM: 04/25 20:00 Patient medically screened. rn 23:24 ED course: Evaluated patient again, walked to bathroom and reports still feels dizzy, rn also reports numbness and tingling "all over", and "whole body feels like jello". Still no lateralizing weakness or sensation changes. CT head neg. Will give more fluids and reassess as all other labs and imaging neg for acute findings. . 04/26 00:02 ED course: Pt reports still feeling dizzy, reports feels wobbly and similar to episodes rn of vertigo that she has had before. Patient now states that she has been having dizzy episodes for the last few months. We will try some meclizine and reassess to make sure she is safe to go home.. 01:26 Differential diagnosis: arthritis, strain, Herniated disc UTI, Vertigo, complicated rn migraine. Data reviewed: vital signs, nurses notes, lab test result(s), EKG, radiologic studies, CT scan, plain films, and as a result, I will admit patient. Consideration of Admission/Observation Patient was admitted/placed on observation. Escalation of care including admission/observation considered. Care significantly affected by the following chronic conditions: Traumatic brain injury. Counseling: I had a detailed discussion with the patient and/or guardian regarding the historical points, exam findings, and any diagnostic results supporting the discharge/admit diagnosis, lab results, radiology results, the need for further work-up and treatment in the hospital. ED course: Patient ambulated on 3 separate occasions and still unable to ambulate without assistance. Patient states that her numbness and tingling have resolved but dizziness and unable to walk as her primary symptom at this time. Patient also states that this has been happening for weeks to months with dizziness but has never been this bad. Worse over the last 2 days.. 01:28 ED course: Patient drove here on her own, is in no condition to walk on her own much rn less drive home. Does not have anybody else to pick her up. No PCP here to follow-up with.. 04/25 20:18 Order name: Blood Culture Adult (2) rn 04/25 20:18 Order name: CBC with Diff; Complete Time: 21:55 rn 04/25 20:18 Order name: CMP; Complete Time: :55 04/25 20:18 Order name: Lactate w/ 2H reflex if indic.; Complete Time: :55 04/25 20:18 Order name: Protime (+inr); Complete Time: 21:55 04/25 20:18 Order name: Ptt, Activated; Complete Time: 21:55 04/25 20:18 Order name: Urinalysis w/ reflexes; Complete Time: :55 04/25 20:26 Order name: SARS RAPID; Complete Time: :55 04/25 20:26 Order name: Flu; Complete Time: 21:55 04/25 21:09 Order name: Glucose, Ancillary Testing; Complete Time: 21:55 EDMS 04/25 20:18 Order name: Chest Single View XRAY; Complete Time: :55 04/25 20:18 Order name: CT Head Brain wo Cont; Complete Time: :55 04/25 20:36 Order name: Abdomen ; Complete Time: :55 EDMT 04/25 20:18 Order name: EKG; Complete Time: 20:18 04/25 20:18 Order name: Accucheck; Complete Time: 21: 04/25 20:18 Order name: Cardiac monitoring; Complete Time: 21: 04/25 20:18 Order name: EKG - Nurse/Tech; Complete Time: 21: 04/25 20:18 Order name: IV Saline Lock - Large Bore; Complete Time: 21:20 04/25 20:18 Order name: Labs collected and sent; Complete Time: 21: 04/25 20:18 Order name: O2 Per Protocol; Complete Time: 21: 04/25 20:18 Order name: O2 Sat Monitoring; Complete Time: 21: 04/25 20:18 Order name: Vital Signs; Complete Time: 21:20 rn Administered Medications: 04/25 21:19 Drug: NS 0.9% IV 1000 ml Route: IV; Rate: 1000 ml; Site: right wrist; jb4 04/26 04:53 Follow up: Response: No adverse reaction; IV Status: Completed infusion; IV Intake: as6 1000ml 04/25 23:06 Drug: NS 0.9% IV 500 ml Route: IV; Rate: bolus; Site: right wrist; jb4 04/26 04:53 Follow up: Response: No adverse reaction; IV Status: Completed infusion; IV Intake: as6 500ml 00:06 Drug: Meclizine PO 50 mg Route: PO; jb4 04:54 Follow up: Response: No adverse reaction as6 03:00 Drug: Potassium PO Effervescent Tablet 50 mEq Route: PO; jb4 04:54 Follow up: Response: No adverse reaction as6 Disposition Summary: 04/26/23 01:28 Hospitalization Ordered Hospitalization Status: Observation rn Location: Telemetry/MedSurg (observation) rn Condition: Stable rn Problem: new rn Symptoms: have improved rn Bed/Room Type: Standard rn Provider: David Diop(04/26/23 01:30) tarun Room Assignment: [facility](04/26/23 03:21) Diagnosis - Dizziness and giddiness rn - Paresthesia of skin rn Forms: - Medication Reconciliation Form rn - SBAR form rn - Leadership Thank You Letter rn Signatures: Dispatcher [employer] [facility] Leo Diop MD MD rn Attema, Lee, VISUAL COORDINATOR-C VISUAL COORDINATOR-Cla1 Leah Garcia RN RN cg Farrukh Rojas RN RN jb4 Todd Abebe RN RN as6 Corrections: (The following items were deleted from the chart) 04/25 20:36 20:18 Abdomen Pelvis W Con+CT.RAD.BRZ ordered. [facility] EDMT 23:10 21:00 Constitutional: This is a well developed, well nourished patient who is awake, rn alert, and in no acute distress. Head/Face: Normocephalic, atraumatic. ENT: Dry mucous membranes Cardiovascular: Tachycardic, regular. No pulse deficits Respiratory: Mild tachypnea but speaking full sentences Abdomen/GI: Soft, non-tender, no rebound Skin: Warm, dry MS/ Extremity: Pulses equal, no cyanosis. Neuro: Awake and alert, GCS 15, oriented to person, place, time, and situation. Cranial nerves II-XII grossly intact. Motor strength 4/5 in all extremities. Sensory grossly intact. rn 04/26 01:30 01:28 Carmine Armando rn 03:21 01:28 rn sagar
--- NOTE | 2023-04-26 01:28 | ER ---
Nurse's Notes [facility] Angel Name: Shanna Nur Age: 47 yrs Sex: Female : 1975 Arrival Date: 04/25/2023 Time: 19:46 Bed 19 Private MD: Diagnosis: Dizziness and giddiness;Paresthesia of skin Presentation: 04/25 20:05 Chief complaint: Patient states: pt came in with c/o fever, abdominal pain, weakness, as6 and UTI symptoms. upon arrival to ER pt also reports left sided weakness and numbness. - drift. Coronavirus screen: At this time, the client does not indicate any symptoms associated with coronavirus-19. Ebola Screen: No symptoms or risks identified at this time. Initial Sepsis Screen: Does the patient meet any 2 criteria? No. Patient's initial sepsis screen is negative. Does the patient have a suspected source of infection? No. Patient's initial sepsis screen is negative. Risk Assessment: Do you want to hurt yourself or someone else? Patient reports no desire to harm self or others. Onset of symptoms was April 25, 2023. 20:05 Acuity: JESUS 3 as6 20:05 Method Of Arrival: Wheelchair as6 RN PALLIATIVE: 20:04 LMP 04/22/2023 as6 Historical: - Allergies: 20:04 Ibuprofen; as6 20:04 Iodine (Anaphylaxis); as6 20:04 Latex, Natural Rubber; as6 20:04 Levaquin; as6 20:04 Levaquin IV; as6 20:04 Phenergan; as6 20:04 SEAFOOD; as6 20:04 Toradol; as6 20:04 tramadol; as6 20:04 Ultram; as6 20:04 Vancomycin; as6 - PMHx: 20:04 Atrial fibrillation; Seizure; TBI; as6 - PSHx: 20:04 Adenoid excision; Appendectomy; Cholecystectomy; L knee SX; Tonsillectomy; tubal as6 ligation; - Immunization history:: Client reports having NOT received the Covid vaccine. - Social history:: Smoking status: Patient denies any tobacco usage or history of. - Family history:: not pertinent. - Hospitalizations: : No recent hospitalization is reported. Screenin/14 03:59 [facility] ED Fall Risk Assessment (Adult) Score/Fall Risk Level 0 - 2 = Low Risk. Abuse as6 screen: Denies threats or abuse. Denies injuries from another. Nutritional screening: No deficits noted. Tuberculosis screening: No symptoms or risk factors identified. Assessment: 04/25 20:15 General: Appears in no apparent distress. uncomfortable, Behavior is calm, cooperative, jb4 appropriate for age. Pain: Complains of pain in abdomen Pain does not radiate. Pain currently is 8 out of 10 on a pain scale. Neuro: Level of Consciousness is awake, alert, obeys commands, Oriented to person, place, time, situation. Cardiovascular: Patient's skin is warm and dry. Respiratory: Airway is patent Respiratory effort is even, unlabored, Respiratory pattern is regular, symmetrical. GI: No signs and/or symptoms were reported involving the gastrointestinal system. : No signs and/or symptoms were reported regarding the genitourinary system. EENT: No signs and/or symptoms were reported regarding the EENT system. Derm: Skin is intact, Skin is pink, warm \T\ dry. Musculoskeletal: Circulation, motion, and sensation intact. Range of motion: intact in all extremities. 21:28 Reassessment: Patient appears in no apparent distress at this time. Patient and/or jb4 family updated on plan of care and expected duration. Pain level reassessed. Patient is alert, oriented x 3, equal unlabored respirations, skin warm/dry/pink. 22:48 Reassessment: Patient appears in no apparent distress at this time. Patient and/or jb4 family updated on plan of care and expected duration. Pain level reassessed. Patient is alert, oriented x 3, equal unlabored respirations, skin warm/dry/pink. 04/26 00:28 Reassessment: Patient appears in no apparent distress at this time. Patient and/or jb4 family updated on plan of care and expected duration. Pain level reassessed. Patient is alert, oriented x 3, equal unlabored respirations, skin warm/dry/pink. Vital Signs: 04/25 20:04 BP 129 / 85; Pulse 115; Resp 18 S; Temp 98.6(TE); Pulse Ox 98% on R/A; Weight 68.04 kg as6 (R); Height 5 ft. 3 in. (R); Pain 6/10; 21:28 BP 113 / 75; Pulse 92; Resp 19; Pulse Ox 98% on R/A; jb4 22:48 BP 119 / 83; Pulse 81; Resp 16; Pulse Ox 98% on R/A; 4 04/26 00:28 BP 114 / 67; Pulse 80; Resp 16; Pulse Ox 99% on R/A; jb4 03:59 BP 124 / 82; Pulse 86; Resp 22 S; Pulse Ox 98% on R/A; as6 04/25 20:04 Body Mass Index 26.57 (68.04 kg, 160.02 cm) as6 04/25 20:04 Pain Scale: Adult as6 ED Course: 04/25 19:51 Patient arrived in ED. jj6 20:00 Leo Diop MD is Attending Physician. rn 20:04 Arm band placed on. as6 20:06 Triage completed. as6 20:37 Abdomen In Process Unspecified. EDMS 20:38 CT Head Brain wo Cont In Process Unspecified. EDMS 21:15 Chest Single View XRAY In Process Unspecified. EDMS 21:25 Farrukh Rojas, RN is Primary Nurse. 04/26 01:28 Carmine Armando MD is Hospitalizing Provider. rn 01:30 David Diop MD is Hospitalizing Provider. la1 03:59 Bed in low position. Call light in reach. Provided Education on: need for admit. as6 03:59 No provider procedures requiring assistance completed. Patient admitted, IV remains in as6 place. Administered Medications: 04/25 21:19 Drug: NS 0.9% IV 1000 ml Route: IV; Rate: 1000 ml; Site: right wrist; 04/26 04:53 Follow up: Response: No adverse reaction; IV Status: Completed infusion; IV Intake: as6 1000ml 04/25 23:06 Drug: NS 0.9% IV 500 ml Route: IV; Rate: bolus; Site: right wrist; 04/26 04:53 Follow up: Response: No adverse reaction; IV Status: Completed infusion; IV Intake: as6 500ml 00:06 Drug: Meclizine PO 50 mg Route: PO; jb4 04:54 Follow up: Response: No adverse reaction as6 03:00 Drug: Potassium PO Effervescent Tablet 50 mEq Route: PO; jb4 04:54 Follow up: Response: No adverse reaction as6 Medication: 03:59 VIS not applicable for this client. as6 Intake: 04:53 IV: 1000ml; Total: 1000ml. as6 04:53 IV: 500ml; Total: 1500ml. as6 Outcome: 01:28 Decision to Hospitalize by Provider. rn 03:59 Condition: stable as6 03:59 Instructed on the need for admit. 04:53 Admitted to Tele accompanied by nurse, via wheelchair, with chart. as6 04:54 Patient left the ED. as6 Signatures: Dispatcher [employer] EDMS Leo Diop MD MD rn Attema, Lee, ACTIVITY COORDINATOR-C ACTIVITY COORDINATOR-Cla1 Farrukh Rojas RN RN jb4 Inez Almontej6 Todd Abebe RN RN as6
[2023-04-26] MEDS ORDERED: POTASSIUM 25 MEQ EFFERV TAB ONE (03:00)
--- NOTE | 2023-04-26 03:56 | P.HP ---
Certification for Inpatient Patient admitted to: Observation With expected LOS: <2 Midnights Patient will require the following post-hospital care: None Practitioner: I am a practitioner with admitting privileges, knowledge of patient current condition, hospital course, and medical plan of care. 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 She reports feeling unwell the past couple days states that she is been running fever up to 102 for the last 7 to 8 days, reports diarrhea that started yesterday, left-sided abdominal pain, feels like she has urinary tract infection. Prior to arrival to the emergency department reports that she developed left-sided arm pain followed by numbness/tingling of left upper and lower extremity. She was evaluated in the emergency department her labs were significant for white blood cell count 11.3 potassium 3.2 urinalysis not concerning for UTI CT abdomen pelvis negative acute finding chest x-ray remarkable CT head also negative for acute findings. Patient reports she does have some difficulty with ambulation at baseline but now feels as if she is leaning to the right when ambulating which is new for her also still having some left-sided paresthesias. ED staff attempted to ambulate patient multiple times but she had very unsteady gait that reason ED physician wishes to admit under observation for dizziness/ataxia. - Past Medical/Surgical History Diabetic: No -: seizures -: HTN -: Paroxysmal atrial fibrillation -: Diverticulitis -: Appy -: Tubal -: L knee -: Tonsils and adenoids Psychosocial/ Personal History: Unemployed, lives at home with family - Family History Mother -: Cancer - Social History Smoking Status: Never smoker Alcohol use: No CD- Drugs: No Caffeine use: Yes Place of Residence: Home <Bin Saucedo - Last Filed: 04/26/23 03:53> Date of Service: 04/26/23 <David Diop - Last Filed: 04/26/23 22:13> Allergies iodine Allergy (Verified 05/13/22 22:40) Anaphylaxis Latex, Natural Rubber Allergy (Verified 12/23/21 22:40) Hives/Rash promethazine [From Phenergan] Allergy (Verified 12/23/21 22:40) Hives tramadol Allergy (Verified 12/23/21 22:40) Nausea/Vomiting Home Medications: Lacosamide [Vimpat] 200 mg PO BID #60 02/11/22 Lisinopril [Zestril] 20 mg PO DAILY #30 02/11/22 Metoprolol Succinate 50 mg PO BID 30 Days #60 tab.er.24h 02/12/22 Aspirin [Ecotrin] 325 mg PO DAILYPRN PRN 02/14/23 Hydrocodone/Acetaminophen [Hydrocodone-Acetamin 10-325 mg] 1 each PO Q6HP PRN 02/14/23 Levetiracetam [Keppra] 1,000 mg PO BID 02/14/23 methocarbamoL [Robaxin*] 750 mg PO DAILYPRN PRN 02/14/23 Ciprofloxacin HCl [Cipro 500 MG Tablet] 500 mg PO BID 10 Days #20 tab 02/15/23 metroNIDAZOLE [Metronidazole] 500 mg PO Q8H 10 Days #30 tab 02/15/23 Review of Systems 10-point ROS is otherwise unremarkable Gastrointestinal: Diarrhea Neurological: Numbness, Other (Dizziness) <Bin Saucedo - Last Filed: 04/26/23 03:53> Physical Examination - Physical Exam General: Alert, In no apparent distress, Oriented x3 HEENT: Atraumatic, PERRLA, Mucous membr. moist/pink, EOMI, Sclerae nonicteric Neck: Supple, 2+ carotid pulse no bruit, No LAD, Without JVD or thyroid abnormality Respiratory: Clear to auscultation bilaterally, Normal air movement Cardiovascular: Regular rate/rhythm, Normal S1 S2 Gastrointestinal: Normal bowel sounds, No tenderness Musculoskeletal: No tenderness Integumentary: No rashes Neurological: Normal gait, Normal speech, Normal strength at 5/5 x4 extr, Normal tone, Normal affect Lymphatics: No axilla or inguinal lymphadenopathy - Studies Laboratory Data (last 24 hrs) 04/25/23 04/25/23 04/25/23 20:59 20:59 20:59 WBC 11.30 H Hgb 15.0 Hct 42.4 Plt Count 400 PT 12.6 H INR 1.15 APTT 30.3 Sodium 138 Potassium 3.2 L BUN 7 Creatinine 0.90 Glucose 109 H Total Bilirubin 0.8 AST 27 ALT 60 H Alkaline Phosphatase 91 Microbiology Data (last 24 hrs): 04/25/23 20:59 Nasopharnyx Influenza Type A Antigen Screen - Final 04/25/23 20:59 Nasopharnyx Influenza Type B Antigen Screen - Final <Bin Saucedo - Last Filed: 04/26/23 03:53> - Studies Microbiology Data (last 24 hrs): 04/25/23 20:59 Blood - Blood Anaerobic Blood Culture - Final 04/25/23 20:59 Nasopharnyx Influenza Type A Antigen Screen - Final 04/25/23 20:59 Nasopharnyx Influenza Type B Antigen Screen - Final <David Diop - Last Filed: 04/26/23 22:13> Assessment and Plan - Plan Assessment: Dizziness, paresthesia, gait instability Paroxysmal atrial fibrillation Seizure disorder Hypokalemia Plan: Dizziness, paresthesia, gait instability NIH score 1 given reported decree sensation left lower extremity. ED attempted ambulate patient multiple times with unsteady gait also reports history of vertigo. Feels as if she is leaning to the right. MRI brain ordered, PT consult. Daily aspirin. Neurology consult. Paroxysmal atrial fibrillation Continue aspirin. Seizure disorder Continue Keppra 1000 mg p.o. twice daily, patient also takes Vimpat at home, counseled to take Vimpat as prescribed as we do not have this medication available. Hypokalemia Replaced in ED. DVT PPX: Lovenox Code status: Full Discharge Plan: Home Plan to discharge in: 24 Hours - Advance Directives Does patient have a Living Will: No Does patient have a Durable POA for Healthcare: No - Code Status/Comfort Care Code Status Assessed: Yes (Full code) Critical Care: No Time Spent Managing Pts Care (In Minutes): 55 <Bin Saucedo - Last Filed: 04/26/23 03:53> - Plan Patient seen and examined on rounds this afternoon paresthesia persists but improved continues with gait instability, feels incoordination of RLE no new/worsening symptoms afebrile MRI negative NEuro consulted h/o TIAs denies migraines, no recent seizures <David Diop - Last Filed: 04/26/23 22:13>
[2023-04-26] MEDS: NA CHLORIDE 0.9% 1,000 ML IV SCH ×3 (04:40→23:38)
[2023-04-26] MEDS ORDERED: ONDANSETRON 4 MG/2 ML VIAL IV PRN (04:40)
[2023-04-26 05:20] VITALS: O2SAT 95; BMI 26.5
[2023-04-26 07:14] LABS: Absolute Lymphocytes (CBC) 4.2 K/uL (0.7-4.9); Hematocrit 40.3 % (36.0-45.0); Lymphocytes % 40.5 % (15.3-44.8); MCV 89.4 fL (80-100); MPV 8.1 fL (7.6-11.3); Platelets 351 thou/uL (152-406); RBC Red Blood Cell Count 4.51 M/uL (3.86-4.86)
[2023-04-26 07:15] LABS: Magnesium 1.9 mg/dL (1.6-2.4); Thyroid Stimulating Hormone 2.28 uIU/mL (0.358-3.740)
--- NOTE | 2023-04-26 07:43 | P.PN ---
Date of Service: 04/26/23 Subjective: tentative friday 04/27 note ROS: 10 point ROS as noted above, otherwise negative Physical Exam: GEN: Alert, oriented, NAD HEENT: Normal conjunctiva, sclera anicteric CV: Regular rate and rhythm, no edema Pulm: Nonlabored respirations on room air ABD: Soft, nontender, nondistended MSK: No joint tenderness Integumentary: No rashes Neuro: Normal speech, normal affect vitals reviewed Problem List: VTE: Code: Dispo:
[2023-04-26] MEDS: levETIRAcetam 500 MG TAB PO SCH ×2 (09:00→20:43)
[2023-04-26] MEDS: ENOXAPARIN 40 MG/0.4 ML SQ SCH (11:15)
--- NOTE | 2023-04-26 11:37 | RAD REPORT ---
EXAM DESCRIPTION: MRI - Brain Wo Cont - 04/26/2023 10:22 am CLINICAL HISTORY: dizziness, vertigo, ataxia COMPARISON: Head CT of the previous day TECHNIQUE: Multiplanar multisequence MRI of the brain performed without IV contrast. FINDINGS: No evidence of acute infarct or other diffusion signal abnormality. No evidence of acute intracranial hemorrhage or abnormal extra-axial fluid collections. Ventricular within normal for age. Midline structures are unremarkable. No white matter signal abnormalities. No mass effect or midline shift. Major vascular flow voids are preserved. Mastoid air cells and paranasal sinuses are clear. IMPRESSION: No acute intracranial process. No evidence of ventriculomegaly or mass effect.
--- NOTE | 2023-04-26 13:01 | EKG ---
Test Date: 2023-04-25 Test Time: 20:48:49 All Terrain Vehicle Technician: JOSE MEASUREMENT RESULTS: Intervals: Rate: 96 UT: 140 QRSD: 78 QT: 354 QTc: 447 [place]: P: 70 UT: 140 QRS: 80 T: 64 INTERPRETIVE STATEMENTS: Normal sinus rhythm ST abnormality, possible digitalis effect Abnormal ECG Compared to ECG 10/14/2022 13:48:32 ST (T wave) deviation now present Sinus arrhythmia no longer present Electronically Signed On 04-26-23 13:00:19 CDT by Patrick Floyd
[2023-04-26] MEDS ORDERED: ATORVASTATIN 40 MG TAB PO SCH (21:00)
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
[2023-04-27 03:08] LABS: Absolute Lymphocytes (CBC) 3.7 K/uL (0.7-4.9); Hematocrit 38.7 % (36.0-45.0); Lymphocytes % 47.3 % (15.3-44.8); Platelets 357 thou/uL (152-406)
[2023-04-27 03:23] LABS: Potassium 3.6 mEq/L (3.5-5.1)
[2023-04-27] MEDS ORDERED: SUMATRIPTAN SUCC 6MG/0.5ML VIAL SQ ONE (08:06)
--- NOTE | 2023-04-27 08:07 | P.DS ---
Admission Date: 04/26/23 Discharge Date: 04/27/23 Disposition: DC HOME/HOME HEALTH CARE Reason for Admission: Dizziness, ataxia Consultations: Neurology - Dr. Fuentes Brief History of Present Illness: 47yo F, PMH: paroxysmal atrial fibrillation, seizure disorder, previous TBI as a child Patient presents to the emergency department with multiple complaints. She reports feeling unwell the past couple days states that she is been running fever up to 102 for the last 7 to 8 days, reports diarrhea that started yesterday, left-sided abdominal pain, feels like she has urinary tract infection. Prior to arrival to the emergency department reports that she developed left-sided arm pain followed by numbness/tingling of left upper and lower extremity. She was evaluated in the emergency department her labs were significant for white blood cell count 11.3 potassium 3.2 urinalysis not concerning for UTI CT abdomen pelvis negative acute finding chest x-ray remarkable CT head also negative for acute findings. Patient reports she does have some difficulty with ambulation at baseline but now feels as if she is leaning to the right when ambulating which is new for her also still having some left-sided paresthesias. ED staff attempted to ambulate patient multiple times but she had very unsteady gait that reason ED physician wishes to admit under observation for dizziness/ataxia. Hospital Course: Problem List: Dizziness, paresthesia, gait instability Paroxysmal atrial fibrillation Seizure disorder Hypokalemia Patient presented with Dizziness, paresthesia, ataxic gait after reported 1 week of fevers/abd discomfort/diarrhea. CT head, CT abdomen, and MRI brain were all negative for any acute findings. Labwork was unremarkable. Neurology was consulted. Dr. Fuentes recommended to follow up with a neurologist (or Dr. Fuentes) as outpatient for EEG monitoring to help determine if her episodes can be characterized. No further inpatient workup this hospitalization. There is no clear etiology for her repeated ataxic episodes and no evidence of a myelopathic exam as her reflexes are not hyperreflexia or abnormal. The consideration may be made for localization-related seizures given her history of seizures. Her symptoms improved and was stable for discharge home. Recommended to use a walker for stability with ambulation, consideration of wheelchair as needed for saftey. Patient stated she will do PT on her own. Follow up with PCP for recheck on vitals /blood pressure. It was low-normal during hospitalization off anti-hypertensive medications. Hold lisinopril and bumex for now Follow up: PCP 3-5 days Neurology in next few weeks [address] [place] [address] Physical Exam: GEN: Alert, oriented, NAD HEENT: Normal conjunctiva, sclera anicteric CV: Regular rate and rhythm, no edema Pulm: Nonlabored respirations on room air ABD: Soft, nontender, nondistended Integumentary: No rashes Neuro: Normal speech, normal affect, reported mild paresthesias of Left body - face/arm/legs, str equal bilaterally Vital Signs/Physical Exam: Temp Pulse Resp BP Pulse Ox 97.3 F 72 18 110/69 97 04/27/23 04:00 04/27/23 04:00 04/27/23 04:00 04/27/23 04:00 04/27/23 04:00 Laboratory Data at Discharge: WBC 7.90 thou/uL (4.3-10.9) 04/27/23 02:01 Hgb 13.5 g/dL (12.0-15.0) 04/27/23 02:01 Hct 38.7 % (36.0-45.0) 04/27/23 02:01 Plt Count 357 thou/uL (152-406) 04/27/23 02:01 PT 12.6 SECONDS (9.5-12.5) H 04/25/23 20:59 INR 1.15 04/25/23 20:59 APTT 30.3 SECONDS (24.3-36.9) 04/25/23 20:59 Sodium 139 mEq/L (136-145) 04/27/23 02:01 Potassium 3.6 mEq/L (3.5-5.1) 04/27/23 02:01 BUN 8 mg/dL (7-18) 04/27/23 02:01 Creatinine 0.74 mg/dL (0.55-1.02) 04/27/23 02:01 Glucose 106 mg/dL (74-106) 04/27/23 02:01 Magnesium 2.0 mg/dL (1.6-2.4) 04/27/23 02:01 Total Bilirubin 0.8 mg/dL (0.2-1.0) 04/25/23 20:59 AST 27 U/L (15-37) 04/25/23 20:59 ALT 60 U/L (13-56) H 04/25/23 20:59 Alkaline Phosphatase 91 U/L (45-117) 04/25/23 20:59 Home Medications: Lacosamide [Vimpat] 200 mg PO BID #60 02/11/22 Lisinopril [Zestril] 20 mg PO DAILY #30 02/11/22 Metoprolol Succinate 50 mg PO BID 30 Days #60 tab.er.24h 02/12/22 Aspirin [Ecotrin] 325 mg PO DAILYPRN PRN 02/14/23 Hydrocodone/Acetaminophen [Hydrocodone-Acetamin 10-325 mg] 1 each PO Q6HP PRN 02/14/23 Levetiracetam [Keppra] 1,000 mg PO BID 02/14/23 methocarbamoL [Robaxin*] 750 mg PO DAILYPRN PRN 02/14/23 Ciprofloxacin HCl [Cipro 500 MG Tablet] 500 mg PO BID 10 Days #20 tab 02/15/23 metroNIDAZOLE [Metronidazole] 500 mg PO Q8H 10 Days #30 tab 02/15/23 Physician Discharge Instructions: Patient presented with Dizziness, paresthesia, ataxic gait after reported 1 week of fevers/abd discomfort/diarrhea. CT head, CT abdomen, and MRI brain were all negative for any acute findings. Labwork was unremarkable. Neurology was consulted. Dr. Fuentes recommended to follow up with a neurologist (or Dr. Fuentes) as outpatient for EEG monitoring to help determine if her episodes can be characterized. No further inpatient workup this hospitalization. There is no clear etiology for her repeated ataxic episodes and no evidence of a myelopathic exam as her reflexes are not hyperreflexia or abnormal. The consideration may be made for localization-related seizures given her history of seizures. Her symptoms improved and was stable for discharge home. Recommended to use a walker for stability with ambulation, consideration of wheelchair as needed for saftey. Patient stated she will do PT on her own. Follow up with PCP for recheck on vitals /blood pressure. It was low-normal during hospitalization off anti-hypertensive medications. Hold lisinopril and bumex for now Follow up: PCP 3-5 days Neurology in next few weeks [address] [place] [address] [phone] Time spent managing pt's care (in minutes): 45
[2023-04-27] MEDS: ENOXAPARIN 40 MG/0.4 ML SQ SCH (08:26)
[2023-04-27] MEDS: levETIRAcetam 500 MG TAB PO SCH (08:26)
[2023-04-27] MEDS ORDERED: POTASSIUM CL SA 10 MEQ TAB PO ONE (09:00)
[2023-04-27] MEDS: NA CHLORIDE 0.9% 1,000 ML IV SCH (10:40)
[2023-04-27 12:29] VITALS: BP 106/54; TEMP 99.8
== END 2023-04-27 17:12 | disposition home or self-care (01) ==
LOC: ER 19:46 → ERHOLD 04-26 02:42 → 4TH 04-26 03:52
PROVIDERS: ADMIT Hospitalist; ATTEND Hospitalist
DX: I48.0 Paroxysmal atrial fibrillation (principal); R56.9 Unspecified convulsions; R20.0 Anesthesia of skin; R26.89 Other abnormalities of gait and mobility; E87.6 Hypokalemia; Z91.09 Other allergy status, other than to drugs and biological substances; Z88.6 Allergy status to analgesic agent; Z91.040 Latex allergy status; Z20.822 Contact with and (suspected) exposure to COVID-19
CPT/HCPCS: 36415; 70450; 70551; 71045; 74176; 80048; 80053; 81003; 82947; 83605; 83735; 84439; 84443; 85025; 85610; 85730; 87040; 87804; 87811; 93005; 96360; 96361; 97110; 97116; 97161; 99285; G0378; J1650; J3030; J7030; J7040; J8597

== ENCOUNTER 2023-07-16 15:01 | Emergency (ER) | payer SELFPAY ==
--- OUTSIDE RECORDS SUMMARY | 2023-07-16 15:36 | XMS REPORT | Continuity of Care Document ---
:1975 Author Organization [facility] t Address [address] [facility] [address] [place] [address] Care Team Providers Name Role Phone THOM WOLFF Primary Care Physician [phone] LEANDRO OLIVARES Attending Clinician Unavailable FABRICIO ORTIZ Attending Clinician Unavailable Fabricio Conteh Attending Clinician MIHIR LUNA Attending Clinician Unavailable Mihir Luna MD Attending Clinician SIMRAN CONTEH Attending Clinician Unavailable Simran Conteh MD Attending Clinician Doctor Unassigned, [place] Attending Clinician Unavailable Halima Vargas MD Attending [...] Clinician Unavailable Bladimir Brumfield MD Attending Clinician Obdulio Ragland MD Attending Clinician MD OBDULIO RAGLAND Attending Clinician Unavailable Inez Gracía MD Attending Clinician [phone] JUDE MATHEWS M.D. Attending Clinician Unavailable Woo Greenberg DO Attending Clinician [phone] Bryant Hill MD Attending Clinician Clarice Brannon MD Attending Clinician Lj Thakkar Attending Clinician MD LJ THAKKAR Attending Clinician Unavailable Jose Elias Torres MD Attending Clinician Lydia Oden MD Attending Clinician [phone] Maribel Dickey MD Attending Clinician MD [...] Number Effective Date Expiration Date S maurice [facility] COMMUNITY PLAN [id number] 2020 STAR 00:00:00 [facility] STAR [id number] 2022 00:00:00 CDC REVIEW [id number] 2020 00:00:00 Problems Condition Condition Condition Status [...] for Disease Active Metho di assistance assistance 9-26 st due to due to 00:00: Hospita [...] Poor Poor Disease Active Methodi compliance compliance [address] st with with 00:00: Hospita medication medication 00 l VAGINAL VAGINAL Diagnosis Active 2016-08-10 Memoria BLEEDING BLEEDING 7 09:01:00 l Active 23:00: Antonio 02/12/2016 00 [facility] D25.9 - D25.9 - Diagnosis Active 2014-082015-06-08 Memoria "LEIOMYOMA "LEIOMYOMA 15:22:00 l OF UTERUS, OF UTERUS, 00:01: He rmann UNSPECIFI" UNSPECIFI" 00 Active 06/08/2015 CLARISAD Antonio VAGINAL VAGINAL Diagnosis Active 2014-12-21 Memoria BLEEDING- BLEEDING- 09-03 13:01:00 l 6 WKS PG 6 WKS PG 00:00: Jordy roberto Active 09/03/2014 [facility] CONSTIPATI CONSTIPAT Diagnosis Active 2014-12-14 Memoria ON, NAUSEA ION, - 09:23:00 l NAUSEA 00:00: [place] Active 00 08/24/2014 [facility] History of History of Problem Resolve [...] d 00:25:42 l Resolved Antonio Problem 02/16/2016 [facility] Migraine Migraine Problem Resolve 2016-02-16 Memoria (disorder) (disorder) d 00:25:42 l Resolved Antonio Problem 02/16/2016 [facility] Mitral Mitral Problem Resolve 2016-02-16 Mem oria valve valve d 00:25:42 l prolapse prolapse Jordy n (disorder) (disorder) Resolved Problem 02/16/2016 [facility] Anxiety Anxiety Problem Active 2016-02-16 Me moria (finding) (finding) 00:25:42 l Active Antonio Problem 02/16/2016 [facility] Bipolar Bipolar Problem Active 2016-02-16 Me moria (qualifier (qualifier 00:25:42 l value) value) Antonio Active Problem 02/16/2016 [facility] Congestive Congestiv Problem Active 2016-02-16 Memoria heart e heart 00:25:42 l failure failure [place] (disorder) (disorder) Active Problem 02/16/2016 [facility] Depressive Problem Active 2016-02-16 M emoria disorder Depressive 00:25:42 l (disorder) disorder Herm alem (disorder) Active Problem 02/16/2016 [facility] Gastroesop Gastroeso Problem Active 2016-02-16 Memoria hageal phageal 00:25:42 l reflux reflux [place] disease disease (disorder) (disorder) Active Problem 02/16/2016 [facility] Heart Heart Problem Active 2016-02-16 Memor ia failure failure 00:25:42 l (disorder) (disorder) He rmann Active Problem 02/16/2016 [facility] Hypertensi Hypertens Problem Active 2016-02-16 Memoria ve kellee 00:25:42 l disorder, disorder, Herm alem systemic systemic arterial arterial (disorder) (disorder) Active Problem 02/16/2016 [facility] Multiple Multiple Problem Active 2016-02-16 Memoria sclerosis sclerosis 00:25:42 l (disorder) (disorder) He rmann Active Problem 02/16/2016 [facility] Osteoarthr Osteoarth Problem Active 2016-02-16 Memoria itis ritis 00:25:42 l (disorder) (disorder) He rmann Active Problem 02/16/2016 [facility] Drug Drug Problem Active 2016-02-16 Memor ia overdose overdose 00:25:42 l (disorder) (disorder) He rmann Active Problem 02/16/2016 [facility] Rheumatoid Problem Active 2016-02-16 M emoria arthritis Rheumatoid 00:25:42 l (disorder) arthritis Her sarkar (disorder) Active Problem 02/16/2016 [facility] 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 00:25:42 l (disorder) (disorder) He rmann Active Problem 02/16/2016 [facility] Uterine Uterine Problem Active 2016-02-16 Me moria leiomyoma leiomyoma 00:25:42 l (disorder) (disorder) He rmann Active Problem 02/16/2016 [facility] Urinary Urinary Problem Active 2016-02-16 Me moria tract tract 00:25:42 l infectious infectious He rmann disease disease (disorder) (disorder) Active Problem 02/16/2016 [facility] 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 No known No known Disease Unive rs active active ity of problems problems [facility] History of Past Illness Condition Condition Condition Status Onset Resolution Last Treating Co mments Source Name Details Category Date Date Treatment Clinician Date Discharge Discharge Problem 2016-02-16 2016-02-16 Dony Diagnosis: Diagnosis: 02-12 00:25:42 00:25:42 l Anemia, Anemia, 05:00: Antonio unspecifie unspecifie 00 d d 02/13/2016 02/16/2016 [facility] Discharge Discharge Problem 2016-02-16 2016-02-16 Dony Diagnosis: Diagnosis: 02-12 00:25:42 00:25:42 l Abnormal Abnormal 05:00: Jordy n uterine uterine 00 and and vaginal vaginal bleeding, bleeding, unspecifie unspecifie d d 02/13/2016 02/16/2016 [facility] Discharge Discharge Problem 2014-09-06 2014-09-06 Dony Diagnosis: Diagnosis: 09-04 16:01:45 16:01:45 l Vaginal Vaginal 06:00: Antonio bleeding bleeding 00 09/04/2014 09/06/2014 [facility] Discharge Discharge Problem 2014-09-06 2014-09-06 Dony Diagnosis: Diagnosis: 09-04 16:01:45 16:01:45 l Dysmenorrh Dysmenorrh 06:00: He rodger massey ea 09/04/2014 09/06/2014 [facility] Discharge Discharge Problem 2014-08-26 2014-08-26 Memoria Diagnosis: Diagnosis: 08-24 17:22:44 17:22:44 l Nausea Nausea 06:00: [place] 08/24/201408/26/2014 [facility] Discharge Discharge Problem 2014-08-26 2014-08-26 Memoria Diagnosis: Diagnosis: 08-24 17:22:44 17:22:44 l Constipati Constipati 06:00: He rodger on on 08/24/2014 5 [facility] Allergies, Adverse Reactions, Alerts Allergy Allergy [...] 00 Medical Branch TRAMADOL DRUG Active Other-Cmnt 0 Univ ers INGREDI 08-14 ity of 00:00: [place] [facility] VANCOMYC DRUG Active Hives Univers IN INGREDI 08-14 ity of 00:00: [place] [facility] Povidone Allergy Active 0 [facility] Iodine to 04-25 Health substanc 00:00: e 00 Latex Allergy Active [facility] to 04-25 Health substanc 00:00: e 00 Nsaids Propensi Active 0 UT ty to 04-25 Health adverse 00:00: [...] 00 Center IODINE Allergy Active High Anaphylaxis 2016-0 [facility] AND 11-07 IODIDE 00:00: CONTAINI 00 NG PRODUCTS KETOROLA Allergy Active 0 [facility] C 11-07 00:00: 00 Povidone Propensi [...] Anaphylaxis 2017-0 M ethodi h ty to 3-09 st Derived adverse 00:00: Hospita reaction 00 l s to drug Iodine Propensi Active Anaphylaxis Met hodi And ty to 3-09 st Iodide adverse 00:00: Hospita Containi reaction 00 l ng s to Products drug Vancomyc Propensi Active Hives Method i in ty to 2-13 st Analogue adverse 00:00: Hospita s reaction 00 l s to drug Tramadol Propensi [facility] adverse 00:00: Medical reaction 00 Center s Vancomyc Propensi Active [facility] Analogue adverse 00:00: Medical s reaction 00 Center s TRAMADOL Allergy Active [facility] 09-25 00:00: 00 VANCOMYC Allergy Active [facility] IN -13 ANALOGUE 00:00: S 00 Levoflox Propensi Active Anaphylaxis 2013-08 Tongue [...] Active Memori a d d 8-09 l radiocon radiocon 00:00: Jordy n trast trast 00 dyes dyes Levaquin Levaquin Active Memori a 03-21 l 00:00: [place] 00 Phenerga Phenerga Active Memori a n n 03-21 l 00:00: [place] 00 Betadine Allergy Active [facility] to [...] Food Food Active Memoria Seafood Seafood l [place] Latex Latex Active Memoria l [place] morphine morphine Active Memori a l [place] vancomyc vancomyc Active Memori a in in l [place] Elavil Elavil Active Memoria l Antonio STEROIDS Allergy Active [facility] Family History Family Member Diagnosis Comments Start Date Stop Date Source Family member No history of Methodis t cancer [facility] Maternal grandfather Stroke [facility] Maternal grandfather Stroke [facility] Natural sister Stroke [facility] Natural sister Stroke [facility] Maternal aunt Melan[facility] Maternal aunt [facility] Maternal uncle Leukemia [facility] Natural mother Diabetes [facility] Social History Social Habit Start Date Stop Date Quantity Comments Source Gender identity 2020-05-06 Identifies as Method ist 15:03:15 female gender Hospital (finding) History SDOH Mu-Ism Alcohol Frequency Hospita l History SDOH Mu-Ism Alcohol Std Drinks Hospit al History SDOH Mu-Ism Alcohol Binge Hospital Sexual orientation [facility] Exposure to 2022-12-01 2022-12-11 Not sure University of SARS-CoV-2 (event) 00:00:00 20:24:00 [facility] History of Social 2021-06-29 2021-06-[address] function 00:00:00 00:00:00 Hospital Alcohol intake 2021-05-05 2021-05-05 Current non-drinker C RAMON [facility] 00:00:00 00:00:00 of [facility] (finding) Tobacco use and 2021-04-25 2021-04-25 Smokeless tobacco [facility] exposure 00:00:00 00:00:00 non-user Alcohol Comment 2018-08-02 2018-08-[address] 00:00:00 00:00:00 Hospital Sex Ass[birth year] At [birth year] LANA Cruz 00:00:00 00:00:00 Medical Center Smoking Status Start Date Stop Date Source Tobacco smoking consumption [facility] Medical unknown Branch Social History [facility] Medications Ordered Filled Start Stop Current Ordering Indication Dosage Frequency Signature Comments Components Source Medication Medication Date Date Medication? Clinician (SIG) Name Name morpHINE (4 2022- No 4mg 4 mg, Slow Univers mg/mL) 12-12 IV Push, ity of injection 4 06:00: 06:03 [place]CE, [place] mg 00 :00 dose, On Medical Tu12/12/22 Branch at 0100, STAT dicyclomine 2022- No 20mg 20 mg, Uni vers (BENTYL) 12-12 Intramuscu ity of injection 04:45: 04:41 lar, ONCE, [place] 20 mg 00 :00 1 dose, On Medical 12/11/22 Branch at 2345, Routine ondansetron 0 Yes [id number] 4mg Take 1 Univers (ZOFRAN) 4 5-02 tablet by ity of mg tablet 00:00: mouth [place] 00 every 8 Medical (eight) Branch hours as needed for Nausea and Vomiting (N/V). dicyclomine 0 Yes [id number] 20mg Take 1 Univers 20 mg 5-02 [...] (scale 7-10). Indication s: acute pain ondansetron 0 Yes [id number] 4mg Take 1 Univers (ZOFRAN) 4 5-02 tablet by ity of mg tablet 00:00: mouth [place] 00 every 8 Medical (eight) Branch hours as needed for Nausea and Vomiting (N/V). dicyclomine Yes [id number] 20mg Take 1 Univers 20 mg 5-02 [...] 1 Medical 25 mcg dose, On Branch 11/27/22 at 1815, STAT cefTRIAXone No 1000mg 1,000 mg, Univers (ROCEPHIN) 11-27 IV ity of 1,000 mg in 21:15: 23:18 Piggyback, [place] NaCl 0.9% 00 :00 ONCE, 1 Medical (NS) 100 mL dose, On Bran ch MINI-BAG Sun11/27/22 at 1615, Administer over 30 Minutes, 100 mL
Reas on for Anti-Infec tive: Documented Infection< br>Documen gaye Infection Site: Urine<br&g t;Duration of Therapy: 7 days cefpodoxime 2022- No [id number] 100mg Take 1 Univers 100 mg 11-2725 tablet by ity of tablet 00:00: 04:59 mouth in [place] 00 :00 the Medical morning Branch and [...] 15 Minutes, 100 mL levETIRAcet 2022-0 Yes [id number] 1000mg Take 1 Univers am (KEPPRA) 1-02 tablet by ity of 1,000 mg 00:00: mouth in [place] tablet 00 the Medical morning Branch and 1 tablet in the evening. Lacosamide 2022-0 Yes [id number] 200mg Take 1 Univers (VIMPAT) 1-02 tablet by ity of 200 mg 00:00: mouth in [place] tablet 00 the Medical morning Branch and 1 tablet in the evening. ALPRAZolam 2022-0 Yes [id number] .25mg Take 1 Univers (XANAX) 1-02 tablet by ity of 0.25 mg 00:00: mouth in [place] tablet 00 the Medical morning Branch and 1 tablet at noon and 1 tablet in the evening. levETIRAcet 2022-0 Yes [id number] 1000mg Take 1 Univers am (KEPPRA) 1-02 tablet by ity of 1,000 mg 00:00: mouth in [place] tablet 00 the Medical morning Branch and 1 tablet in the evening. Lacosamide 2022-0 Yes [id number] 200mg Take 1 Univers (VIMPAT) 1-02 tablet by ity of 200 mg 00:00: mouth in [place] tablet 00 the Medical morning Branch and 1 tablet in the evening. ALPRAZolam 2023-0 Yes [id number] .25mg Take 1 Univers (XANAX) 1-02 tablet by ity of 0.25 mg 00:00: mouth in [place] tablet 00 the Medical morning Branch and 1 tablet at noon and 1 tablet in the evening. levETIRAcet 3-0 Yes [id number] 1000mg Take 1 Univers am (KEPPRA) 1-02 tablet by ity of 1,000 mg 00:00: mouth in [place] tablet 00 the Medical morning Branch and 1 tablet in the evening. Lacosamide 3-0 Yes [id number] 200mg Take 1 Univers (VIMPAT) 1-02 tablet by ity of 200 mg 00:00: mouth in [place] tablet 00 the Medical morning Branch and 1 tablet in the evening. ALPRAZolam 2022-0 Yes [id number] .25mg Take 1 Univers (XANAX) 1-02 tablet by ity of 0.25 mg 00:00: mouth in [place] tablet 00 the Medical morning Branch and 1 tablet at noon and 1 tablet in the evening. levETIRAcet 2022-0 Yes [id number] 1000mg Take 1 Univers am (KEPPRA) 1-02 tablet by ity of 1,000 mg 00:00: mouth in [place] tablet 00 the Medical morning Branch and 1 tablet in the evening. Lacosamide 2022-0 Yes [id number] 200mg Take 1 Univers (VIMPAT) 1-02 tablet by ity of 200 mg 00:00: mouth in [place] tablet 00 the Medical morning Branch and 1 tablet in the evening. ALPRAZolam 2022-0 Yes [id number] .25mg Take 1 Univers (XANAX) 1-02 tablet by ity of 0.25 mg 00:00: mouth in [place] tablet 00 the Medical morning Branch and 1 tablet at noon and 1 tablet in the evening. levETIRAcet 3-0 Yes [id number] 1000mg Take 1 Univers am (KEPPRA) 1-02 tablet by ity of 1,000 mg 00:00: mouth in [place] tablet 00 the Medical morning Branch and 1 tablet in the evening. Lacosamide 3-0 Yes [id number] 200mg Take 1 Univers (VIMPAT) 1-02 tablet by ity of 200 mg 00:00: mouth in [place] tablet 00 the Medical morning Branch and 1 tablet in the evening. ALPRAZolam Yes [id number] .25mg Take 1 Univers (XANAX) 1-02 tablet by ity of 0.25 mg 00:00: mouth in [place] tablet 00 the Medical morning Branch and 1 tablet at noon and 1 tablet in the evening. acetaminoph 2020-08 No [id number] 1{tbl} Q6H Take 1 Methodi en-codeine 08-[address] (TYLENOL 00:00: 05:59 mouth Hospita WITH 00 :00 every 6 l CODEINE #3) (six) 300-30 mg hours as per tablet needed for moderate pain for up to 5 days .acute pain. acetaminoph 2020-08 No [id number] 1{tbl} Q6H Take 1 Methodi en-codeine 08-29 [...] He alth 12:13: s 10 bumetanide Yes [id number] 2mg QD Take 1 U T (Bumex) 2 9-13 tablet (2 Healt h MG tablet 00:00: mg total) 00 by mouth 1 (one) time each day. lisinopril Yes [id number] 2.5mg QD Take 1 UT 2.5 MG 9-13 tablet Health tablet 00:00: (2.5 mg 00 total) by mouth 1 (one) time each day. metoprolol Yes [id number] 50mg Q.5D Take 1 U T succinate 9-13 tablet (50 Heal th XL 00:00: mg total) (Toprol-XL) 00 by mouth 2 50 MG 24 hr (two) tablet times a day. lisinopril 2020- No 2.5mg 2.5 mg. UT 2.5 MG 02-08 Health tablet 19:34: 00:00 53 :00 metoprolol 2020- No 50mg 50 mg. UT succinate -08 02- Health XL 19:34: 00:00 (Toprol-XL) 53 :00 50 MG 24 hr tablet lisinopril Yes [id number] 2.5mg QD Take 1 UT 2.5 MG - tablet Health tablet 00:00: (2.5 mg 00 total) by mouth 1 (one) time each day. metoprolol Yes [id number] 50mg Q.5D Take 1 U T succinate 02-08 tablet (50 Heal th XL 00:00: mg total) (Toprol-XL) 00 by mouth 2 50 MG 24 hr (two) tablet times a day. lisinopril 2020- No [id number] 2.5mg QD Take 1 UT 2.5 MG 02-08 tablet Health tablet 00:00: 00:00 (2.5 mg 00 :00 total) by mouth 1 (one) time each day. metoprolol 2020- No [id number] 50mg Q.5D Take 1 UT succinate 02-08 [...] capsule 59 l busPIRone 0 Yes 15mg Q.[id number] Take 15 mg Methodi (BUSPAR) 10 4-26 [id number] mouth [address] MG tablet 16:32: [...] capsule 59 l busPIRone 0 Yes 15mg Q.[id number] Take 15 mg Methodi (BUSPAR) 10 4-26 [id number] mouth [address] MG tablet 11:32: [...] capsule 59 l busPIRone 2020-0 Yes 15mg Q.[id number] Take 15 mg Methodi (BUSPAR) 10 4-26 [id number] [address] mouth [address] MG tablet 11:32: [...] capsule 59 l busPIRone 0 Yes 15mg Q.[id number] Take 15 mg Methodi (BUSPAR) 10 4-26 [id number] mouth [address] MG tablet 11:32: [...] 11:32: daily. Hospi ta 59 l prazosin 2021-0 Yes 5mg QD Take 5 mg Meth ketty (MINIPRESS) 4-[address] 5 MG 11:32: nightly. Hospita capsule 59 l busPIRone Yes 15mg Q.[id number] Take 15 mg Methodi (BUSPAR) 10 4-26 [id number] [address] mouth 3 [address] MG tablet 11:32: [...] capsule 59 l busPIRone 0 Yes 15mg Q.[id number] Take 15 mg Methodi (BUSPAR) 10 4-26 [id number] [address] mouth 3 [address] MG tablet 11:32: [...] Hospita capsule 59 l busPIRone Yes 15mg Q.[id number] Take 15 mg Methodi (BUSPAR) 10 4-26 [id number] [address] mouth [address] MG tablet 11:32: [...] capsule 59 l busPIRone 0 Yes 15mg Q.[id number] Take 15 mg Methodi (BUSPAR) 10 4-26 [id number] mouth 3 [address] MG tablet 11:32: [...] capsule 59 l busPIRone 0 Yes 15mg Q.[id number] Take 15 mg Methodi (BUSPAR) 10 4-26 [id number] [address] mouth 3 [address] MG tablet 11:32: [...] capsule 59 l busPIRone 2020-0 Yes 15mg Q.[id number] Take 15 mg Methodi (BUSPAR) 10 4-26 [id number] by mouth 3 [address] MG tablet 11:32: [...] capsule 59 l busPIRone 0 Yes 15mg Q.[id number] Take 15 mg Methodi (BUSPAR) 10 4-26 [id number] [address] mouth [address] MG tablet 11:32: [...] capsule 59 l busPIRone 2020-0 Yes 15mg Q.77150612 Take 15 mg Methodi (BUSPAR) 10 4-26 [id number] mouth [address] MG tablet 11:32: [...] mouth Hospita tablet 59 daily. l BUMETanide 2021-0 Yes 2mg Q.5W Take 2 mg Me thodi (BUMEX) 2 - by mouth 2 st MG tablet 11:32: (two) Hospita 59 times a l week. FLUoxetine Yes 10mg QD Take 10 mg M ethodi (PROzac) 10 - by mouth st MG capsule 11:32: daily. Hospi ta 59 l prazosin Yes 5mg QD Take 5 mg Meth ketty (MINIPRESS) 12-[address] 5 MG 11:32: nightly. Hospita capsule 59 l busPIRone Yes 15mg Q.77165558 Take 15 mg Methodi (BUSPAR) 10 12-06 [id number] [address] mouth 3 [address] MG tablet 11:32: [...] Q.5D Take 1 Me thodi am (KEPPRA) -05 01- tablet st 750 MG 00:00: 04:59 (750 mg Hospita tablet 00 :00 total) by l mouth 2 (two) times a day for 30 days. levETIRAcet 2020- No 750mg Q.5D Take 1 Me thodi am (KEPPRA) -05 01-[address] 750 MG 00:00: 04:59 (750 [...] hours for 10 days. acetaminoph 2020- [place] [id number] 1{tbl} Q6H Take 1-2 Methodi en-codeine 3-24 03-[address] (TYLENOL 00:00: 04:59 mouth Hospita WITH 00 :00 every 6 l CODEINE #3) (six) 300-30 mg hours as per tablet needed for moderate pain for up to 5 days .acute pain. acetaminoph 2020- No [id number] 1{tbl} Q6H Take 1-2 Methodi en-codeine 3-24 03-[address] (TYLENOL 00:00: 04:59 mouth Hospita WITH 00 :00 every 6 l CODEINE #3) (six) 300-30 mg hours as per tablet needed for moderate pain for up to 5 [place]. [place] [id number] 1{tbl} Q6H Take 1-2 Methodi en-codeine 3-24 [...] Q.5D Take 1 Me thodi am (KEPPRA) 2 03-[address] 500 MG 00:00: 05:59 [...] Take 2 mg M ethodi (XANAX) 2 09-[address] MG tablet 00:12: 00:00 [...] mouth l daily for 30 days. BUMETanide No 2mg QD Take 1 Meth ketty (BUMEX) 2 09-11 tablet (2 st MG tablet 00:00: 05:59 mg total) Ho spita 00 :00 by mouth l daily for 30 days. BUMETanide No 2mg QD Take 1 Meth ketty [...] ALPRAZolam No .5mg QD Take 1 Meth ketyt [...] No Q.5D Take by Me thodi -acetaminop 05-08- mouth 2 st hen (NORCO) 17:49: 00:00 (two) Hosp arcenio 5-325 mg 43 :00 times a l per tablet day. diazePAM 2019- No 10mg Q.[id number] Take 10 mg Methodi (VALIUM) 5 05-08- [id number] by mouth 3 st MG tablet 17:49: 00:00 3D (three) Hosp arcenio 43 :00 times a l day as needed for anxiety. penbutolol 2019-0 2020- No 20mg QD Take 20 mg Methodi sulfate 05-[address] (PENBUTOLOL 17:49: 00:00 daily. Hos denise ORAL) 43 :00 l ondansetron 2019- 2020- No 4mg Q8H Take 4 mg [...] 50 mg 24 hr day. tablet lisinopriL 2020- No 2.5mg QD Take 2.5 M [...] 30 days. lactulose 2019- 2020- No 20g Q.[id number] Take 30 mL Methodi 20 gram/30 05-08 [id number] (20 g s t mL solution 00:00: 04:59 3D total) by Hospita 00 :00 mouth 3 l (three) times a day as needed (CONSTIPAT ION) for up to 30 days. meclizine 2019- 2020- No 25mg Q.[id number] Take 1 Methodi (ANTIVERT) 05-08 [id number] tablet (25 st 25 mg 00:00: 04:59 3D mg total) Hospit a tablet 00 :00 by mouth 3 l (three) times a day as needed for dizziness for up to 30 days. pregabalin 2019- 2020- No 50mg Q.[id number] Take 2 Methodi (LYRICA) 25 05-[id number] MG capsule 00:00: 04:59 3D (50 mg Hosp arcenio 00 :00 total) by l mouth 3 (three) times a day for 30 days. lisinopriL 2019- No 2.5mg QD Take 1 Met hodi (PRINIVIL) 05-[address] 2.5 mg 00:00: 04:59 (2.5 mg Hospita tablet 00 :00 total) by l mouth daily for 30 days. metoprolol 2020- No 50mg Q.5D Take 1 Meth [...] (two) l times a day. BUMETanide 2019- 2020- No 2mg QD Take 2 mg [...] Memoria 02-12 Route: l 09:11: IVP, Drug [place] 00 form: INJ, ONCE, Dosing Weight 68.182, [...] Memoria 7- Route: l 09:11: IVP, Drug [place] 00 form: INJ, ONCE, Dosing Weight 68.182, kg, Priority: STAT, Start date: 02/13/16 4:11:00 CDT, Stop date: 02/13/16 4:11:00 CDT Sodium 2016-0 No 1,000 mL, Memori a Chloride 7- Rate: l 0.9% IV 09:11: 1,000 [place] 1000 mL 00 ml/hr, Infuse over: 1 [...] 7-03 Rate: l 0.9% IV 09:11: 1,000 [place] 1000 mL 00 ml/hr, Infuse over: 1 [...] Memoria 7- Route: l 09:11: IVP, Drug [place] 00 form: INJ, ONCE, Dosing Weight 68.182, [...] Memoria 7- Route: l 09:11: IVP, Drug [place] 00 form: INJ, ONCE, Dosing Weight 68.182, kg, Priority: STAT, Start date: 02/13/16 4:11:00 CDT, Stop date: 02/13/16 4:11:00 CDT Sodium 2016-0 No 1,000 mL, Memori a Chloride 7- Rate: l 0.9% IV 09:11: 1,000 [place] 1000 mL 00 ml/hr, Infuse over: 1 hr, Route: IV, Dosing Weight 68.182 kg, Total Volume: 1,000, Start date: 02/13/16 4:11:00 CDT, Duration: 1 doses or times, Stop date: 02/13/16 5:10:00 CDT, Bolus Dose Reglan 2016-0 No 10 mg, Memoria 7-03 Route: l 09:11: IVP, Drug [place] 00 form: INJ, ONCE, Dosing Weight 68.182, [...] Memoria 7-03 Route: l 09:11: IVP, Drug [place] 00 form: INJ, ONCE, Dosing Weight 68.182, [...] Memoria 7-03 Route: l 09:11: IVP, Drug [place] 00 form: INJ, ONCE, Dosing Weight 68.182, [...] Memoria 7-03 Route: l 09:11: IVP, Drug [place] 00 form: INJ, ONCE, Dosing Weight 68.182, kg, Priority: STAT, Start date: 02/13/16 4:11:00 CDT, Stop date: 02/13/16 4:11:00 CDT Sodium 2016-0 No 1,000 mL, Memori a Chloride 7-03 Rate: l 0.9% IV 09:11: 1,000 [place] 1000 mL 00 ml/hr, Infuse over: 1 [...] 7-03 Rate: l 0.9% IV 09:11: 1,000 [place] 1000 mL 00 ml/hr, Infuse over: 1 hr, Route: IV, Dosing Weight 68.182 kg, Total Volume: 1,000, Start date: 02/13/16 4:11:00 CDT, Duration: 1 doses or times, Stop date: 02/13/16 5:10:00 CDT, Bolus Dose Reglan 2016-0 No 10 mg, Memoria 7-03 Route: l 09:11: IVP, Drug [place] 00 form: INJ, ONCE, Dosing Weight 68.182, kg, Priority: STAT, Start date: 02/13/16 4:11:00 CDT, Stop date: 02/13/16 4:11:00 CDT Sodium 2016-0 No 1,000 mL, Memori a Chloride 7- Rate: l 0.9% IV 09:11: 1,000 [place] 1000 mL 00 ml/hr, Infuse over: 1 hr, Route: IV, Dosing Weight 68.182 kg, Total Volume: 1,000, Start date: 02/13/16 4:11:00 CDT, Duration: 1 doses or times, Stop date: 02/13/16 5:10:00 CDT, Bolus Dose Reglan 2016-0 No 10 mg, Memoria 7-03 Route: l 09:11: IVP, Drug [place] 00 form: INJ, ONCE, Dosing Weight 68.182, [...] Memoria 7-03 Route: l 09:11: IVP, Drug [place] 00 form: INJ, ONCE, Dosing Weight 68.182, kg, Priority: STAT, Start date: 02/13/16 4:11:00 CDT, Stop date: 02/13/16 4:11:00 CDT Sodium 2016-0 No 1,000 mL, Memori a Chloride 02-12 Rate: l 0.9% IV 09:11: 1,000 [place] 1000 mL 00 ml/hr, Infuse over: 1 [...] 02-12 Route: PO, l 08:17: Drug form: [place] 00 TAB, ONCE, Dosing Weight 68.182, kg, Priority: STAT, Start date: 02/13/16 3:17:00 CDT, Stop date: 02/13/16 3:17:00 CDT Acetaminoph 2015-0 No 650 mg, Mem oria en 02-12 Route: PO, l 08:17: Drug form: [place] 00 TAB, ONCE, Dosing Weight 68.182, kg, Priority: STAT, Start date: 02/13/16 3:17:00 CDT, Stop date: 02/13/16 3:17:00 CDT Acetaminoph 2016-0 No 650 mg, Mem oria en 02-12 Route: PO, l 08:17: Drug form: [place] 00 TAB, ONCE, Dosing Weight 68.182, kg, [...] - Route: PO, l 08:17: Drug form: [place] 00 TAB, ONCE, Dosing Weight 68.182, kg, Priority: STAT, Start date: 02/13/16 3:17:00 CDT, Stop date: 02/13/16 3:17:00 CDT Acetaminoph 2016-0 No 650 mg, Mem oria en - Route: PO, l 08:17: Drug form: [place] 00 TAB, ONCE, Dosing Weight 68.182, kg, [...] - Route: PO, l 08:17: Drug form: [place] 00 TAB, ONCE, Dosing Weight 68.182, kg, Priority: STAT, Start date: 02/13/16 3:17:00 CDT, Stop date: 02/13/16 3:17:00 CDT Acetaminoph 2016-0 No 650 mg, Mem oria en 7- Route: PO, l 08:17: Drug form: [place] 00 TAB, ONCE, Dosing Weight 68.182, kg, [...] 02-12 Route: PO, l 08:17: Drug form: [place] 00 TAB, ONCE, Dosing Weight 68.182, kg, [...] 02-12 Route: PO, l 08:17: Drug form: [place] 00 TAB, ONCE, Dosing Weight 68.182, kg, Priority: STAT, Start date: 02/13/16 3:17:00 CDT, Stop date: 02/13/16 3:17:00 CDT Zofran 2016-0 No 4 mg, Memoria 02-12 Route: l 06:19: IVP, Drug [place] 00 form: INJ, ONCE, Dosing Weight 68.182, kg, Priority: STAT, Start date: 02/13/16 1:19:00 CDT, Stop date: 02/13/16 1:19:00 CDT Zofran 2016-0 No 4 mg, Memoria 7- Route: l 06:19: IVP, Drug [place] 00 form: INJ, ONCE, Dosing Weight 68.182, kg, Priority: STAT, Start date: 02/13/16 1:19:00 CDT, Stop date: 02/13/16 1:19:00 CDT Zofran 2016-0 No 4 mg, Memoria 7- Route: l 06:19: IVP, Drug [place] 00 form: INJ, ONCE, Dosing Weight 68.182, kg, Priority: STAT, Start date: 02/13/16 1:19:00 CDT, Stop date: 02/13/16 1:19:00 CDT Zofran 2016-0 No 4 mg, Memoria 7- Route: l 06:19: IVP, Drug [place] 00 form: INJ, ONCE, Dosing Weight 68.182, [...] Memoria 7- Route: l 06:19: IVP, Drug [place] 00 form: INJ, ONCE, Dosing Weight 68.182, [...] Memoria 7- Route: l 06:19: IVP, Drug [place] 00 form: INJ, ONCE, Dosing Weight 68.182, kg, Priority: STAT, Start date: 02/13/16 1:19:00 CDT, Stop date: 02/13/16 1:19:00 CDT Zofran 2016-0 No 4 mg, Memoria 7- Route: l 06:19: IVP, Drug [place] 00 form: INJ, ONCE, Dosing Weight 68.182, kg, Priority: STAT, Start date: 02/13/16 1:19:00 CDT, Stop date: 02/13/16 1:19:00 CDT Zofran 2016-0 No 4 mg, Memoria 7- Route: l 06:19: IVP, Drug [place] 00 form: INJ, ONCE, Dosing Weight 68.182, kg, Priority: STAT, Start date: 02/13/16 1:19:00 CDT, Stop date: 02/13/16 1:19:00 CDT Zofran 2016-0 No 4 mg, Memoria 7- Route: l 06:19: IVP, Drug [place] 00 form: INJ, ONCE, Dosing Weight 68.182, [...] Memoria 7-03 Route: l 06:19: IVP, Drug [place] 00 form: INJ, ONCE, Dosing Weight 68.182, kg, Priority: STAT, Start date: 02/13/16 1:19:00 CDT, Stop date: 02/13/16 1:19:00 CDT Zofran 2016-0 No 4 mg, Memoria 7-03 Route: l 06:19: IVP, Drug [place] 00 form: INJ, ONCE, Dosing Weight 68.182, [...] 0.9% 7-03 (Same as: l 06:07: BD [place] 00 Posiflush) Saline No Notes: Memoria Flush 0.9% 7-03 (Same as: l 06:07: BD [place] 00 Posiflush) Saline No Notes: [facility] Flush 0.9% 7-03 (Same as: l 06:07: BD [place] 00 Posiflush) Saline No Notes: [facility] Flush 0.9% 7-03 (Same as: l 06:07: BD [place] 00 Posiflush) Saline No Notes: [facility] Flush 0.9% 7-03 (Same as: l 06:07: BD [place] 00 Posiflush) Saline No Notes: [facility] Flush 0.9% 7-03 (Same as: l 06:07: BD [place] 00 Posiflush) Saline No Notes: [facility] Flush 0.9% 7-03 (Same as: l 06:07: BD [place] 00 Posiflush) Saline No Notes: [facility] Flush 0.9% 7-03 (Same as: l 06:07: BD [place] 00 Posiflush) Saline No Notes: [facility] Flush 0.9% 7-03 (Same as: l 06:07: BD [place] 00 Posiflush) Saline No Notes: [facility] Flush 0.9% 7-03 (Same as: l 06:07: BD [place] 00 Posiflush) Saline No Notes: [facility]oria Flush 0.9% 7-03 (Same as: l 06:07: BD [place] 00 Posiflush) Saline No Notes: [facility] Flush 0.9% 7-03 (Same as: l 06:07: BD [place] 00 Posiflush) Saline No Notes: [facility] Flush 0.9% 7-03 (Same as: l 06:07: BD [place] 00 Posiflush) Saline No Notes: [facility] Flush 0.9% 7-03 (Same as: l 06:07: BD [place] 00 Posiflush) Saline No Notes: [facility]oria Flush 0.9% 7-03 (Same as: l 06:07: BD [place] 00 Posiflush) Saline No Notes: [facility] Flush 0.9% 7-03 (Same as: l 06:07: BD [place] 00 Posiflush) Saline No Notes: [facility] Flush 0.9% 7-03 (Same as: l 06:07: BD [place] 00 Posiflush) Ibuprofen Yes Special [facility] 800 MG Oral 1-23 Instructio l Tablet 08:52: ns: Take [place] [Motrin] 00 with food Ibuprofen Yes Special [facility] 800 MG Oral 1-23 Instructio l Tablet 08:52: ns: Take [place] [Motrin] 00 with food Ibuprofen Yes [facility] 800 MG Oral 1-23 Instructio l Tablet 08:52: ns: Take [place] [Motrin] 00 with food Ibuprofen Yes [facility] 800 MG Oral 1-23 Instructio l Tablet 08:52: ns: Take [place] [Motrin] 00 with food Ibuprofen 2014-0 Yes Special [facility] 800 MG Oral 1-23 Instructio l Tablet 08:52: ns: Take [place] [Motrin] 00 with food Ibuprofen 2014-0 Yes [facility] 800 MG Oral 1-23 Instructio l Tablet 08:52: ns: Take [place] [Motrin] 00 with food Ibuprofen 2014-0 Yes [facility] 800 MG Oral 1-23 Instructio l Tablet 08:52: ns: Take [place] [Motrin] 00 with food Ibuprofen 2014-0 Yes [facility] 800 MG Oral 1-23 Instructio l Tablet 08:52: ns: Take [place] [Motrin] 00 with food Ibuprofen 2014- Yes [...] 1-23 Instructio l Tablet 08:52: ns: Take [place] [Motrin] 00 with food Ibuprofen 2014-0 Yes [facility] 800 MG Oral 1-23 Instructio l Tablet 08:52: ns: Take [place] [Motrin] 00 with food Ibuprofen 2014-0 Yes [facility] 800 MG Oral 1-23 Instructio l Tablet 08:52: ns: Take [place] [Motrin] 00 with food Ibuprofen 2014-0 Yes [facility] 800 MG Oral 1-23 Instructio l Tablet 08:52: ns: Take [place] [Motrin] 00 with food Ketorolac 2014-0 No 4 days Memor ia 1-23 l 08:49: [place] 00 Ketorolac 2014-0 No 4 days Memor ia 1-23 l 08:49: [place] 00 Ketorolac 2014-0 No 4 days Memor ia 1-23 l 08:49: [place] 00 Ketorolac 2014-0 No 4 days Memor ia 1-23 l 08:49: [place] 00 Ketorolac 2014- No 4 days Memor ia 1-23 l 08:49: Ketorolac 2014- No 4 days Memor ia 1-23 l 08:49: Ketorolac 2014-0 No 4 days Memor ia 1-23 l 08:49: [place] 00 Ketorolac No 4 days Memor ia 1-23 l 08:49: Ketorolac 2014- No 4 days Memor ia 1-23 l 08:49: Ketorolac No 4 days Memor ia 1-23 l 08:49: Ketorolac No 4 days Memor ia 1-23 l 08:49: Ketorolac No 4 days Memor ia 1-23 l 08:49: Ketorolac 0 No 4 days Memor ia [...] PO, l Oral Tablet 21:41: Bedtime, # [place] [Lipitor] 00 30 tab, 0 Refill(s) metoprolol [...] PO, l Oral Tablet 21:41: Bedtime, # [place] [Lipitor] 00 30 tab, 0 Refill(s) metoprolol [...] PO, l Oral Tablet 21:41: Bedtime, # [place] [Lipitor] 00 30 tab, 0 Refill(s) metoprolol [...] PO, l Oral Tablet 21:41: Bedtime, # [place] [Lipitor] 00 30 tab, 0 Refill(s) metoprolol [...] PO, l Oral Tablet 21:41: Bedtime, # [place] [Lipitor] 00 30 tab, 0 Refill(s) metoprolol [...] Oral Tablet TIMES ans DAILY. Immunizations Ordered Filled Immunization Date Status Comments [facility] e Immunization Name Name [facility] 2020-11-03 Completed [facility] 00:00:00 [facility] 2020-11-03 Completed [facility] 00:00:00 [facility] Tdap 2020-11-03 Completed [facility] 00:00:00 [facility] Td 2020-11-03 Completed [facility] 00:00:00 [facility] Td 2020-11-03 Completed [facility] 00:00:00 [facility] Td 2020-11-03 Completed [facility] 00:00:00 [facility] Td 2020-11-03 Completed [facility] 00:00:00 [facility] Tdap 2020-11-03 Completed [facility] 00:00:00 [facility] Tdap 2020-11-03 Completed [facility] 00:00:00 [facility] Td 2020-11-03 Completed [facility] 00:00:00 [facility] Td 2020-11-03 Completed [facility] 00:00:00 [facility] Td 2020-11-03 Completed [facility] 00:00:00 [facility] Td Unknown Completed [facility] Vital Signs Vital Name Observation Time Observation Value Comments Source Systolic blood 2023-02-12 128 mm[Hg] [facility] pressure 21:26:00 [facility] Diastolic blood 2023-02-12 73 mm[Hg] [facility] o f pressure 21:26:00 [facility] Heart rate 2023-02-12 88 /min [facility] of :: [facility] Body temperature 2023-02-12 36.78 Cecily University of :: [facility] Respiratory rate 2023-02-12 20 /min University of ::00 [facility] Body height 2023-02-12 161.3 cm University of : [facility] Body weight 2023-02-12 68.04 kg University of :: [facility] BMI 2023-02-12 26.15 kg/m2 University of ::00 [facility] Oxygen saturation 2023-02-12 100 /min University of in Arterial blood 21:26:00 [facility] keerthi by Pulse oximetry Branch Systolic blood 2022-12-12 114 mm[Hg] [facility] pressure 07:00:00 [facility] Diastolic blood 2022-12-12 78 mm[Hg] University o f pressure 07:00:00 [facility] Heart rate 2022-12-12 99 /min University of 07:00:00 [facility] Respiratory rate 2022-12-12 16 /min University of 07:00:00 [facility] Oxygen saturation 2022-12-12 97 /min University of in Arterial blood 07:00:00 [facility] by Pulse oximetry Branch Body temperature 2022-12-12 36.61 Cecily University of 01:23:00 [facility] Body height 2022-12-12 160 cm University of :23:00 [facility] Body weight 2022-12-12 68.04 kg University of :23:00 [facility] BMI 2022-12-12 26.57 kg/m2 University of 01:23:00 [facility] Systolic blood 2022-11-28 115 mm[Hg] [facility] pressure 00:03:00 [facility] Diastolic blood 2022-11-28 71 mm[Hg] University o f pressure 00:03:00 [facility] Heart rate 2022-11-28 88 /min University of 00:03:00 [facility] Respiratory rate 2022-11-28 14 /min University of 00:03:00 [facility] Oxygen saturation 2022-11-28 99 /min University of in Arterial blood 00:03:00 [facility] by Pulse oximetry Branch Body temperature 2022-11-27 36.11 Cecily [facility] 20:13:00 [facility] Body height 2022-11-27 161.3 cm [facility] 20:13:00 [facility] Body weight 2022-11-27 68.04 kg University of 18:10:00 [facility] BMI 2022-11-27 26.15 kg/m2 [facility] 18:10:00 [facility] Systolic blood 2022-08-15 113 mm[Hg] [facility] pressure 04:00:00 [facility] Diastolic blood 2022-08-15 76 mm[Hg] [facility] o f pressure 04:00:00 [facility] Heart rate 2022-08-15 91 /min [facility] 04:00:00 [facility] Respiratory rate 2022-08-15 24 /min [facility] 04:00:00 [facility] Oxygen saturation 2022-08-15 95 /min [facility] Arterial blood 04:00:00 [facility] keerthi by Pulse oximetry [place] Body temperature 2022-08-15 35.94 Cecily [facility] 02:49:00 [facility] Body height 2022-08-15 160 cm [facility] 02:49:00 [facility] Body weight 2022-08-15 68.04 kg [facility] 02:49:00 [facility] BMI 2022-08-15 26.57 kg/m2 [facility] 02:49:00 [facility] HEIGHT 2021-05-05 165.1 cm 20:18:00 WEIGHT 2021-05-05 68.04 kg 20:18:00 HEIGHT 2021-05-05 165.1 cm 20:18:00 WEIGHT 2021-05-05 68.04 kg 20:18:00 Systolic blood 2021-04-25 120 mm[Hg] [facility] pressure 16:25:00 Diastolic blood 2021-04-25 77 mm[Hg] [facility] pressure 16:25:00 Heart rate 2021-04-25 72 /min [facility] 16:25:00 Body height 2021-04-25 167.6 cm [facility] 16:25:00 Body weight 2021-04-25 78.926 kg [facility] 16:25:00 BMI 2021-04-25 28.08 kg/m2 [facility] 16:25:00 HEIGHT 2020-02-04 161 cm 00:00:00 WEIGHT 2020-02-04 68.04 kg 00:00:00 HEIGHT 2020-02-04 161 cm 00:00:00 WEIGHT 2020-02-04 68.04 kg 00:00:00 Systolic blood 2021-06-29 147 mm[Hg] [facility] pressure 16:16:09 Hospital Diastolic blood 2021-06-29 67 mm[Hg] [facility] pressure 16:16:09 Hospital Heart rate 2021-06-29 94 /min [facility] 16:16:09 Hospital Body temperature 2021-06-29 36.89 Cecily [facility] 16:16:09 Hospital Oxygen saturation 2021-06-29 94 /min [facility] in Arterial blood 16:16:09 Hospital by Pulse oximetry Systolic blood 2021-05-06 124 mm[Hg] [facility] pressure 01:23:00 [facility] Diastolic blood 2021-05-06 68 mm[Hg] [facility] pressure 01:23:00 [facility] Heart rate 2021-05-06 84 /min [facility] 01:23:00 [facility] Body temperature 2021-05-[address] [facility] 01:23:00 [facility] Respiratory rate 2021-05-06 18 /min [facility] 01:23:00 [facility] Oxygen saturation 2021-05-05 99 /min [facility] in Arterial blood 23:45:00 [facility]ter by Pulse oximetry Body height 2021-05-[address] [facility] 20:18:00 [facility] Body weight 2021-05-[address] [facility] 20:18:00 [facility] BMI 2021-05-05 24.96 kg/m2 [facility] 20:18:00 [facility] Systolic blood 2020-12-16 120 mm[Hg] Location: [facility] Physicia ns pressure 11:22:00 Position: Sitting Diastolic blood 2020-12-16 77 mm[Hg] Location: [facility] Physici ans pressure 11:22:00 Position: Sitting Body height 2020-12-16 63 [in_us] [facility] 11:22:00 Weight 2020-12-16 165 [lb_av] [facility] 11:22:00 Body mass index 2020-12-16 29.23 kg/m2 [facility] (BMI) [Ratio] 11:22:00 Heart Rate [...] Body temperature 2020-12-06 36.39 Cecily [facility] 13:03:19 [facility] Body height 2020-12-03 165.1 cm [facility] 21:48:00 [facility] Body weight 2020-12-03 63.504 kg [facility] 21:48:00 [facility] BMI 2020-12-03 23.30 kg/m2 [facility] 21:48:00 [facility] Systolic blood 2020-12-02 112 mm[Hg] Location: [facility] Physicia ns pressure 12:05:00 Position: Sitting Diastolic blood 2020-12-02 68 mm[Hg] Location: [facility] Physici ans pressure 12:05:00 Position: Sitting Body height 2020-12-02 63 [in_us] [facility] 12:05:00 Weight 2020-12-02 168 [lb_av] [facility] 12:05:00 Body mass index 2020-12-02 29.76 kg/m2 [facility] (BMI) [Ratio] 12:05:00 Heart Rate 2020-12-02 72 /min [facility] 12:05:00 Systolic (mm Hg) 2016-02-13 [facility] rmann 11:30:00 Diastolic (mm Hg) 2016-02-13 [facility] ermann 11:30:00 Heart Rate 2016-02-13 [facility] Jordy n 11:30:00 Respitory Rate 2016-02-13 Jhonny Herm alem 11:30:00 Temperature Oral 2016-02-13 98.2 F [facility] rmann (F) 11:30:00 Temperature Oral 2016-02-13 98.2 F [facility] rmann (F) 11:00:00 Respitory Rate 2016-02-13 Jhonny [...] Jhonny Gonsales rmann 17:24:00 Respitory Rate 2014-08-24 Jhonny Eid alem 17:24:00 Diastolic (mm Hg) 2014-08-24 Jhonny Reyes ermann 17:24:00 Heart Rate 2014-08-24 Jhonny Eidan n 17:24:00 Temperature Oral 2014-08-24 98.2 F [facility] Dru rmann (F) 17:24:00 Height 2014-08-24 160.02 cm Jhonny Spence n 17:24:00 BMI Calculated 2014-08-24 Jhonny Eid alem 17:24:00 Weight 2014-08-24 Jhonny Eidan n 17:24:00 Procedures Procedure Date / Time Performing Clinician Source Performed ASSIGNMENT OF BENEFITS 2023-02-12 21:31:23 Doctor Unassigned, Un [facility] GENERAL 2023-02-12 21:30:36 [facility] CONSENT/REFUSAL FOR 2023-02-12 21:17:38 Doctor Unasskilo, [facility] DIAGNOSIS AND TREATMENT [facility] CT ABDOMEN PELVIS WO 2022-12-12 05:25:51 Mihir Luna [facility] CONTRAST [facility] LIPASE 2022-12-12 04:39:00 Mihir Luna [facility] COMP. METABOLIC PANEL 2022-12-12 04:39:00 Mihir Luna [facility] ([id number]) [facility] CBC WITH DIFF 2022-12-12 04:39:00 Mihir Luna [facility] ASSIGNMENT OF BENEFITS 2022-12-12 03:53:25 Doctor Unassigned, Un [facility] URINALYSIS 2022-12-12 01:58:00 Mihir Luna [facility] CONSENT/REFUSAL FOR 2022-12-12 01:14:19 Doctor Unajohn, [facility] DIAGNOSIS AND TREATMENT [facility] POCT TEST 2022-11-27 23:18:00 Simran Conteh [facility] BASIC METABOLIC PANEL (NA, 2022-11-27 19:34:00 Simran Conteh [facility] K, CL, CO2, GLUCOSE, BUN, Medica l Branch CREATININE, CA) CBC WITH DIFF 2022-11-27 19:34:00 Simran Conteh [facility] URINALYSIS 2022-11-27 19:34:00 Simran Conteh [facility] NOTICE OF PRIVACY 2022-11-27 18:07:21 Doctor Unassigned, [facility] PRACTICES [facility] CONSENT/REFUSAL FOR 2022-11-27 18:04:52 Doctor Unassigned, [facility] DIAGNOSIS AND TREATMENT [facility] EKG-12 LEAD 2022-08-15 04:15:29 Halima Vargas [facility] TROPONIN I 2022-08-15 03:12:00 Halima Vargas [facility] COMP. METABOLIC PANEL 2022-08-15 03:12:00 Halima Vargas [facility] ([id number]) [facility] CBC WITH DIFF 2022-08-15 03:12:00 Halima Vargas [facility] TEST, SERUM 2022-08-15 03:12:00 Halima Vargas [facility] XR KNEE 1 OR 2 VW RIGHT 2021-06-29 16:46:14 , [facility] CT SPINE CERVICAL WITHOUT 2021-05-05 22:50:00 Ryanne Hurtado [facility] IV CONTRAST [facility] CT BRAIN WITHOUT IV 2021-05-05 22:38:00 Ryanne Hurtado [facility] CONTRAST [facility] ED ECG INTERPRETATION 2021-05-05 20:57:00 Ryanne Hurtado [facility] LEVETIRACETAM LEVEL 2021-05-05 20:34:00 Ryanne Hurtado [facility] CBC W/PLT COUNT & AUTO 2021-05-05 20:34:00 Ryanne Hurtado [facility] DIFFERENTIAL [facility] COMPREHENSIVE METABOLIC 2021-05-05 20:34:00 Ryanne Hurtado [facility] PANEL [facility] TROPONIN I 2021-05-05 20:34:00 Ryanne Hurtado [facility] CBC W/PLT COUNT & AUTO 2021-05-05 20:34:00 Ryanne Hurtado [facility] DIFFERENTIAL [facility] REPORT OF PROCEDURE - 2021-05-05 00:00:00 Provider, Lona [facility] ENDOSCOPY SCAN [facility] [L] BMP8+eGFR 2020-12-16 00:00:00 [facility] [QL] CBC (INCLUDES 2020-12-16 00:00:00 [facility] DIFF/PLT) [QL] LIPID PANEL 2020-12-16 00:00:00 [facility] [QL] TSH, 3RD GENERATION 2020-12-16 00:00:00 [facility] W/REFLEX TO FT4 [QL] HEMOGLOBIN A1c 2020-12-16 00:00:00 [facility] POC GLUCOSE 2020-12-06 05:18:00 Obdulio Ragland spital UNMONITORED VIDEO-EEG 12 2020-12-05 19:27:44 Maria Elena [facility] HRS 1MIN-26HRS [facility] EEG SETUP 2020-12-05 09:23:13 Maria Elena [facility] EEG (ROUTINE) 2020-12-04 16:25:57 Maria Elena [facility] POC GLUCOSE 2020-12-04 05:03:00 Obdulio Ragland spital URINE DRUGS OF ABUSE 2020-12-04 04:55:00 Billie Stevenson [facility] SCREEN CT HEAD WO CONTRAST 2020-12-04 02:48:09 Bharat Kevin [facility] (LEVETIRACETAM) 2020-12-04 01:43:[address] [facility] LEVEL ALCOHOL LEVEL, BLOOD 2020-12-04 01:43:00 Billie Stevenson [facility] TROPONIN 2020-12-04 01:43:00 Bharat Kevin spital XR CHEST 1 VW PORTABLE 2020-12-03 23:52:00 Bladimir Brumfield [facility] COVID-19 QUALITATIVE 2020-12-03 22:41:00 [facility] RT-PCR [facility] CRITICAL CARE, E/M 2020-12-03 21:55:13 [facility] 30-74 MINUTES [facility] ECG ED PRELIMINARY 2020-12-03 21:55:13 [facility] INTERPRETATION [facility] COMPLETE BLD COUNT 2020-12-03 21:52:00 [facility] W/AUTO DIFF [facility] PROTHROMBIN TIME WITH INR 2020-12-03 21:52:00 [facility] PART[facility] THROMBOPLASTIN 2020-12-03 21:52:00 [facility] TIME (PTT) [facility] COMPREHENSIVE METABOLIC 2020-12-03 21:52:00 [facility] PANEL [facility] TROPONIN 2020-12-03 21:52:00 [facility] NATRIURETIC PEPTIDE 2020-12-03 21:52:00 [facility] 2020-12-03 21:52:00 [facility] SCREEN [place] ESTIMATED GFR 2020-12-03 21:52:00 [facility] CREATINE KINASE, TOTAL 2020-12-03 21:52:00 [facility] (CPK) [facility] ECG 12-LEAD 2020-12-03 21:48:15 [facility] [L] BMP8+eGFR 2020-12-02 00:00:00 [facility] [QL] CBC (INCLUDES 2020-12-02 00:00:00 [facility] DIFF/PLT) [QL] LIPID PANEL 2020-12-02 00:00:00 [facility] [QL] HEMOGLOBIN A1c 2020-12-02 00:00:00 [facility] [QL] B TYPE NATRIURETIC 2020-12-02 00:00:00 [facility] PEPTIDE (BNP) URINALYSIS SCREEN AND 2020-11-18 00:45:00 Marinas, [facility] MICROSCOPY, WITH REFLEX TO [place] CULTURE HC COMPLETE BLD COUNT 2020-11-17 22:57:00 [facility] W/AUTO DIFF [place] COMPREHENSIVE METABOLIC 2020-11-17 22:57:00 [facility] PANEL [place] ESTIMATED GFR 2020-11-17 22:57:00 [facility] URINE CULTURE 2020-11-17 22:55:00 [facility] XR HAND 3+ VW RIGHT 2020-11-03 04:24:40 [facility] Nelsy EEG AWAKE/DROWSY LESS THAN 2020-09-17 16:49:14 [facility] 41 MIN VITAMIN B12 LEVEL 2020-09-17 10:40:00 [facility] VITAMIN B1 LEVEL, WHOLE 2020-09-17 10:40:00 [facility] BLOOD THYROID STIMULATING 2020-09-17 10:40:00 [facility] HORMONE LIPID PANEL 2020-09-17 10:40:00 [facility] HEMOGLOBIN A1C 2020-09-17 10:40:00 [facility] spital RAPID HIV 1 & 2 2020-09-17 10:40:00 [facility] SYPHILIS TREPONEMA SCREEN 2020-09-17 10:40:00 [facility] WITH RPR CONFIRMATION (REVERSE ALGORITHM) HC COMPLETE BLD COUNT 2020-09-17 10:40:00 [facility] W/AUTO DIFF BASIC METABOLIC PANEL 2020-09-17 10:40:00 [facility] MAGNESIUM LEVEL 2020-09-17 10:40:00 [facility] TROPONIN 2020-09-17 10:40:00 [facility] ESTIMATED GFR 2020-09-17 10:40:00 [facility] ECG 12-LEAD 2020-09-17 10:27:21 Ryan Jhonny [facility] COVID-19 QUALITATIVE 2020-09-16 21:32:00 [facility] RT-PCR ECG ED PRELIMINARY 2020-09-16 20:03:41 [facility] INTERPRETATION ECG 12-LEAD 2020-09-16 19:53:37 [facility] HC COMPLETE BLD COUNT 2020-09-16 19:49:00 [facility] W/AUTO DIFF CREATINE KINASE, TOTAL 2020-09-16 19:49:00 [facility] ([facility] COMPREHENSIVE METABOLIC 2020-09-16 19:49:00 [facility] PANEL ESTIMATED GFR 2020-09-16 19:49:00 [facility] EEG AWAKE/ASLEEP LESS THAN 2020-09-11 16:51:29 [facility] 41 MIN CLOSTRIDIUM DIFFICILE 2020-09-11 15:09:00 [facility] TOXIN TROPONIN 2020-09-11 11:59:[address] [facility] spital LACTIC ACID LEVEL, SEPSIS 2020-09-11 11:59:00 [facility] - NOW AND REPEAT 2X EVERY 3 HOURS PROLACTIN LEVEL 2020-09-11 11:59:00 [facility] spital TROPONIN 2020-09-11 08:50:00 [facility] spital LACTIC ACID LEVEL 2020-09-11 08:50:00 [facility] COVID-19 QUALITATIVE 2020-09-11 06:43:00 [facility] RT-PCR CT ABDOMEN PELVIS WO 2020-09-11 05:29:19 [facility] CONTRAST CT HEAD WO CONTRAST 2020-09-11 05:29:09 [facility] URINE CULTURE 2020-09-11 05:27:[address] [facility] XR CHEST 1 VW PORTABLE 2020-09-11 05:05:26 [facility] ECG 12-LEAD 2020-09-11 05:04:54 Maribel Dickey spital LACTIC ACID LEVEL, SEPSIS 2020-09-11 05:02:00 Maribel Dickey [facility] - NOW AND REPEAT 2X EVERY 3 HOURS URINALYSIS SCREEN AND 2020-09-11 04:56:00 [facility]CROS[facility], WITH REFLEX TO CULTURE URINE DRUGS OF ABUSE 2020-09-11 04:56:00 [facility] [place] [facility] SCREEN TROPONIN 2020-09-11 04:44:00 Maribel Dickey spital HCG QUALITATIVE, SERUM 2020-09-11 04:44:00 [facility] SCREEN CREATINE KINASE, TOTAL 2020-09-11 04:43:00 [facility] Jose Elias [facility] ([facility] ECG ED PRELIMINARY 2020-09-11 04:35:32 [facility] INTERPRETATION HC COMPLETE BLD COUNT 2020-09-11 04:32:00 [facility] W/AUTO DIFF COMPREHENSIVE METABOLIC 2020-09-11 04:32:00 [facility] PANEL ESTIMATED GFR 2020-09-11 04:32:[address] [facility] CHLAMYDIA GONORRHOEAE AND 2020-07-16 07:47:00 [facility] TRICHOMONAS PANEL WET PREP 2020-07-16 06:20:00 Dusty Pate [facility] CT ABDOMEN PELVIS WO 2020-07-16 03:58:20 Dusty Pate [facility] CONTRAST COVID-19 QUALITATIVE 2020-07-16 03:16:00 Dusty Pate [facility] RT-PCR HC COMPLETE BLD COUNT 2020-07-16 03:16:00 Dusty Pate [facility] W/AUTO DIFF COMPREHENSIVE METABOLIC 2020-07-16 03:16:00 [facility] HospitalDusty [facility] PANEL LIPASE LEVEL 2020-07-16 03:16:00 [facility] Hospital[facility] ESTIMATED GFR 2020-07-16 03:16:00 Dusty Pate [facility] URINE CULTURE 2020-07-16 00:38:00 Inez García H ospital Mendel HCG QUALITATIVE, URINE 2020-07-15 23:58:00 [facility] SCREEN Mendel URINALYSIS SCREEN AND 2020-07-15 23:58:00 [facility], WITH REFLEX TO Mendel CULTURE US DUPLEX VENOUS UPPER 2020-05-08 06:10:06 [facility] Tari EEG EXTENDED 41 - 60 MINS 2020-05-07 21:36:38 [facility] HCG QUALITATIVE, SERUM 2020-05-07 17:51:00 [facility] SCREEN MRI BRAIN W WO CONTRAST 2020-05-07 03:11:37 [facility] TTE COMPLETE, WO CONTRAST, 2020-05-06 22:42:15 [facility] AGIT[facility] SALINE ([id number]) Tari VITAMIN B12 LEVEL 2020-05-06 16:52:00 [facility] FOLATE LEVEL 2020-05-06 16:52:00 [facility] TROPONIN 2020-05-06 14:33:00 [facility] HC COMPLETE BLD COUNT 2020-05-06 12:04:00 [facility] W/AUTO DIFF COMPREHENSIVE METABOLIC 2020-05-06 12:04:00 [facility] PANEL TROPONIN 2020-05-06 12:04:00 [facility] ESTIMATED GFR 2020-05-06 12:04:00 [facility] COVID-19 QUALITATIVE 2020-05-06 07:30:00 [facility] RT-PCR URINE CULTURE 2020-05-06 06:34:00 [facility] CT HEAD WO CONTRAST 2020-05-06 06:10:12 [facility] HC COMPLETE BLD COUNT 2020-05-06 05:53:00 [facility] W/AUTO DIFF PARTIAL THROMBOPLASTIN 2020-05-06 05:53:00 [facility] TIME (PTT) PROTHROMBIN TIME WITH INR 2020-05-06 05:53:00 [facility] COMPREHENSIVE METABOLIC 2020-05-06 05:53:00 [facility] URINALYSIS SCREEN AND 2020-05-06 05:53:00 [facility] MICROSCOPY, WITH REFLEX TO CULTURE TROPONIN 2020-05-06 05:53:00 [facility] B NATRIURETIC PEPTIDE 2020-05-06 05:53:00 [facility] THYROID STIMULATING 2020-05-06 05:53:00 [facility] HORMONE AMMONIA LEVEL 2020-05-06 05:53:00 [facility] URINE DRUGS OF ABUSE 2020-05-06 05:53:00 [facility] SCREEN ALCOHOL LEVEL, BLOOD 2020-05-06 05:53:00 [facility] ESTIMATED GFR 2020-05-06 05:53:00 [facility] XR CHEST 1 VW PORTABLE 2020-05-06 05:49:36 [facility] POC GLUCOSE 2020-05-06 05:41:00 [facility] ECG 12-LEAD 2020-05-06 05:37:10 [facility] ECG ED PRELIMINARY 2020-05-06 05:14:03 [facility] INTERPRETATION [facility] of [facility] Laparoscopic Appendectomy [facility] Blood transfusion [facility] Plan of Care Planned Activity Planned Date Details Comments Source Future Scheduled 2030-11-03 DTAP/TDAP/TD VACCINES ([address] [facility] 00:00:00 - Td or Tdap) [facility] DTAP/TDAP/TD VACCINES (2 - Td or Tdap)] [...] [facility] 00:00:00 [code = 23425236] Medical Ce nter Future Scheduled 2025-09-17 Lipid panel (procedure) [facility] 00:00:00 [code = 31924789] Medical Ce nter Future Scheduled 2025-09-17 Lipid panel (procedure) [facility] 00:00:00 [code = 89737529] Medical Ce nter Future Scheduled 2025-09-17 Lipid panel (procedure) [facility] 00:00:00 [code = 15387759] Medical Ce nter Future Scheduled 2025-09-17 Lipid panel (procedure) [facility] 00:00:00 [code = 13502010] Medical Ce nter Future Scheduled 2025-09-17 Lipid panel (procedure) [facility] 00:00:00 [code = 24655887] Medical Ce nter Future Scheduled 2025-09-17 Lipid panel (procedure) [facility] 00:00:00 [code = 23128808] Medical Ce nter Future Scheduled 2025-09-17 Lipid panel (procedure) [facility] 00:00:00 [code = 06957237] Medical Ce nter Future Scheduled 2025-09-17 Lipid panel (procedure) [facility] 00:00:00 [code = 54261614] Medical Ce nter Future Scheduled 2025-09-17 Lipid panel (procedure) [facility] 00:00:00 [code = 96170014] Medical Ce nter Future Scheduled 2025-09-17 Lipid panel (procedure) [facility] 00:00:00 [code = 04018951] Medical Ce nter Future Scheduled 2025-09-17 Lipid panel (procedure) [facility] 00:00:00 [code = 46997142] Medical Ce nter Future Scheduled 2023-08-03 Lipid panel (procedure) [facility] 00:00:00 [code = 71190115] Medical Ce nter Future Scheduled 2023-06-07 Screening for malignant [facility] Test 18:14:01 neoplasm of colon Hospital (procedure) [code = 485738469] Future Scheduled 2023-06-07 Screening for malignant [facility] Test 18:14:01 neoplasm of colon Hospital (procedure) [code = 074408326] Future Scheduled 2023-06-07 Screening for malignant [facility] Test 18:14:01 neoplasm of colon Hospital (procedure) [code = 444322512] Future Scheduled 2023-06-07 COVID-19 VACCINE (#1) [facility] 18:14:01 [code = COVID-19 VACCINE Hos pital (#1)] Future Scheduled 2023-06-07 Hepatitis C screening [facility] 18:14:01 (procedure) [code = Hospital 436705329] Future Scheduled 2023-06-07 Screening for malignant [facility] Test 18:14:01 neoplasm of cervix Hospital (procedure) [code = 674151609] Future Scheduled 2023-06-07 BREAST CANCER SCREENING [facility] Test 18:14:01 [code = BREAST CANCER Hospit al SCREENING] Future Scheduled 2023-06-07 Screening for malignant [facility] Test 18:14:01 neoplasm of colon Hospital (procedure) [code = 662087124] Future Scheduled 2023-06-07 Screening for malignant [facility] Test 18:14:01 neoplasm of colon Hospital (procedure) [code = 853956882] Future Scheduled 2023-06-07 INFLUENZA VACCINE (#1) M ethodist Test 18:14:01 [code = INFLUENZA VACCINE Ho spital (#1)] Future Scheduled 2023-04-16 Screening for malignant [facility] Test 08:31:55 neoplasm of colon Hospital (procedure) [code = 414711299] Future Scheduled 2023-04-16 Screening for malignant [facility] Test 08:31:55 neoplasm of colon Hospital (procedure) [code = 630785866] Future Scheduled 2023-04-16 Screening for malignant [facility] Test 08:31:55 neoplasm of colon Hospital (procedure) [code = 531098883] Future Scheduled 2023-04-16 COVID-19 VACCINE (#1) [facility] 08:31:55 [code = COVID-19 VACCINE Hos pital (#1)] Future Scheduled 2023-04-16 Hepatitis C screening [facility] 08:31:55 (procedure) [code = Hospital 975013678] Future Scheduled 2023-04-16 Screening for malignant [facility] Test 08:31:55 neoplasm of cervix Hospital (procedure) [code = 504234516] Future Scheduled 2023-04-16 BREAST CANCER SCREENING [facility] Test 08:31:55 [code = BREAST CANCER Hospit al SCREENING] Future Scheduled 2023-04-16 Screening for malignant [facility] Test 08:31:55 neoplasm of colon Hospital (procedure) [code = 957758331] Future Scheduled 2023-04-16 Screening for malignant [facility] 08:31:55 neoplasm of colon Hospital (procedure) [code = 953703611] Future Scheduled 2023-04-16 INFLUENZA VACCINE (#1) [facility]ist Test 08:31:55 [code = INFLUENZA VACCINE Ho spital (#1)] Future Scheduled 2023-04-13 INFLUENZA VACCINE (Season [...] Me dical Center (#1)] Future Scheduled 2023-04-13 Influenza Vaccine (#1[facility] [code = Influenza Vaccine Me dical Center (#1)] Future Scheduled 2023-04-13 Influenza Vaccine (#1) [facility] 00:00:00 [code = Influenza Vaccine Me dical Center (#1)] Future Scheduled 2023-01-26 Screening for malignant [facility] Test 03:46:14 neoplasm of colon Hospital (procedure) [code = 482781319] Future Scheduled 2023-01-26 Screening for malignant [facility] Test 03:46:14 neoplasm of colon Hospital (procedure) [code = 514224771] Future Scheduled 2023-01-26 Screening for malignant [facility] 03:46:14 neoplasm of colon Hospital (procedure) [code = 452696332] Future Scheduled 2023-01-26 COVID-19 VACCINE (#1) [facility] 03:46:14 [code = COVID-19 VACCINE Hos pital (#1)] Future Scheduled 2023-01-26 Hepatitis C screening [facility] Test 03:46:14 (procedure) [code = Hospital 843865103] Future Scheduled 2023-01-26 Screening for malignant [facility] Test 03:46:14 neoplasm of cervix Hospital (procedure) [code = 299661798] Future Scheduled 2023-01-26 BREAST CANCER SCREENING [facility] Test 03:46:14 [code = BREAST CANCER Hospit al SCREENING] Future Scheduled 2023-01-26 Screening for malignant [facility] Test 03:46:14 neoplasm of colon Hospital (procedure) [code = 894285783] Future Scheduled 2023-01-26 Screening for malignant [facility] 03:46:14 neoplasm of colon Hospital (procedure) [code = 836318117] Future Scheduled 2023-01-26 INFLUENZA VACCINE [code = [facility] Test 03:46:14 INFLUENZA VACCINE] Hospital Future Scheduled 2022-11-17 COVID-19 VACCINE (#1) [facility] 15:00:57 [code = COVID-19 VACCINE Hos pital (#1)] Future Scheduled 2022-11-17 Hepatitis C screening [facility] 15:00:57 (procedure) [code = Hospital 754853551] Future Scheduled 2022-11-17 Screening for malignant [facility] 15:00:57 neoplasm of cervix Hospital (procedure) [code = 512962734] Future Scheduled 2022-11-17 BREAST CANCER SCREENING [facility] 15:00:57 [code = BREAST CANCER Hospit al SCREENING] Future Scheduled 2022-11-17 COLONOSCOPY SCREENING [facility] 15:00:57 [code = COLONOSCOPY Hospital SCREENING] Future Scheduled 2022-11-17 INFLUENZA VACCINE [code = [facility] Test 15:00:57 INFLUENZA VACCINE] Hospital Future Scheduled 2022-11-17 COVID-19 VACCINE (#1) [facility] 15:00:57 [code = COVID-19 VACCINE Hos pital (#1)] Future Scheduled 2022-11-17 Hepatitis C screening [facility] 15:00:57 (procedure) [code = Hospital 076207754] Future Scheduled 2022-11-17 Screening for malignant [facility] 15:00:57 neoplasm of cervix Hospital (procedure) [code = 868765146] Future Scheduled 2022-11-17 BREAST CANCER SCREENING [facility] 15:00:57 [code = BREAST CANCER Hospit al SCREENING] Future Scheduled 2022-11-17 COLONOSCOPY SCREENING [facility] 15:00:57 [code = COLONOSCOPY Hospital SCREENING] Future Scheduled 2022-11-17 INFLUENZA VACCINE [code = [facility] Test 15:00:57 INFLUENZA VACCINE] Hospital Future Scheduled [...] Test 00:00:00 (12+) [code = DEPRESSION [facility] SCREENING (12+)] Future Scheduled 2022-07-28 COVID-19 VACCINE (#1) [facility] 06:02:12 [code = COVID-19 VACCINE Hos pital (#1)] Future Scheduled 2022-07-28 Hepatitis C screening [facility] Test 06:02:12 (procedure) [code = Hospital 843446815] Future Scheduled 2022-07-28 Screening for malignant [facility] Test 06:02:12 neoplasm of cervix Hospital (procedure) [code = 439969186] Future Scheduled 2022-07-28 BREAST CANCER SCREENING [facility] 06:02:12 [code = BREAST CANCER Hospit al SCREENING] Future Scheduled 2022-07-28 COLONOSCOPY SCREENING [facility] 06:02:12 [code = COLONOSCOPY Hospital SCREENING] Future Scheduled 2022-07-28 INFLUENZA VACCINE [code = [facility] Test 06:02:12 INFLUENZA VACCINE] Hospital Future Scheduled 2022-07-28 COVID-19 VACCINE (#1) [facility] 06:02:12 [code = COVID-19 VACCINE Hos pital (#1)] Future Scheduled 2022-07-28 Hepatitis C screening [facility] 06:02:12 (procedure) [code = Hospital 532827517] Future Scheduled 2022-07-28 Screening for malignant [facility] 06:02:12 neoplasm of cervix Hospital (procedure) [code = 911831096] Future Scheduled 2022-07-28 BREAST CANCER SCREENING [facility] 06:02:12 [code = BREAST CANCER Hospit al SCREENING] Future Scheduled 2022-07-28 COLONOSCOPY SCREENING [facility] 06:02:12 [code = COLONOSCOPY Hospital SCREENING] Future Scheduled 2022-07-28 INFLUENZA VACCINE [code = [facility] Test 06:02:12 INFLUENZA VACCINE] Hospital Future Scheduled 2022-07-28 COVID-19 VACCINE (#1) [facility] 06:02:12 [code = COVID-19 VACCINE Hos pital (#1)] Future Scheduled 2022-07-28 Hepatitis C screening [facility] 06:02:12 (procedure) [code = Hospital 892949940] Future Scheduled 2022-07-28 Screening for malignant [facility] Test 06:02:12 neoplasm of cervix Hospital (procedure) [code = 617663913] Future Scheduled 2022-07-28 BREAST CANCER SCREENING [facility] Test 06:02:12 [code = BREAST CANCER Hospit al SCREENING] Future Scheduled 2022-07-28 COLONOSCOPY SCREENING [facility] 06:02:12 [code = COLONOSCOPY Hospital SCREENING] Future Scheduled 2022-07-28 INFLUENZA VACCINE [code = [facility] Test 06:02:12 INFLUENZA VACCINE] Hospital Future Scheduled 2022-07-28 COVID-19 VACCINE (#1) [facility] 06:02:12 [code = COVID-19 VACCINE Hos pital (#1)] Future Scheduled 2022-07-28 Hepatitis C screening [facility] Test 06:02:12 (procedure) [code = Hospital 627132524] Future Scheduled 2022-07-28 Screening for malignant [facility] Test 06:02:12 neoplasm of cervix Hospital (procedure) [code = 610878817] Future Scheduled 2022-07-28 BREAST CANCER SCREENING [facility] Test 06:02:12 [code = BREAST CANCER Hospit al SCREENING] Future Scheduled 2022-07-28 COLONOSCOPY SCREENING [facility] 06:02:12 [code = COLONOSCOPY Hospital SCREENING] Future Scheduled 2022-07-28 INFLUENZA VACCINE [code = [facility] Test 06:02:12 INFLUENZA VACCINE] Hospital Future Scheduled 2022-07-28 COVID-19 VACCINE (#1) [facility] 06:02:12 [code = COVID-19 VACCINE Hos pital (#1)] Future Scheduled 2022-07-28 Hepatitis C screening [facility] 06:02:12 (procedure) [code = Hospital 033689532] Future Scheduled 2022-07-28 Screening for malignant [facility] 06:02:12 neoplasm of cervix Hospital (procedure) [code = 590349696] Future Scheduled 2022-07-28 BREAST CANCER SCREENING [facility] 06:02:12 [code = BREAST CANCER Hospit al SCREENING] Future Scheduled 2022-07-28 COLONOSCOPY SCREENING [facility] 06:02:12 [code = COLONOSCOPY Hospital SCREENING] Future Scheduled 2022-07-28 INFLUENZA VACCINE [code = [facility] Test 06:02:12 INFLUENZA VACCINE] Hospital Future Scheduled [...] thodist Test 11:36:01 (procedure) [code = Hospital 214702936] Future Scheduled 2021-06-29 Screening for malignant [facility] 11:36:01 neoplasm of cervix Hospital (procedure) [code = 079292621] Future Scheduled 2021-06-29 INFLUENZA VACCINE [code = [facility] Test 11:36:01 INFLUENZA VACCINE] Hospital Future Scheduled 2021-06-29 COVID-19 VACCINE (1) [facility] 11:36:01 [code = COVID-19 VACCINE Hos pital (1)] Future Scheduled 2021-06-29 Hepatitis C screening [facility] 11:36:01 (procedure) [code = Hospital 180077548] Future Scheduled 2021-06-29 Screening for malignant [facility] 11:36:01 neoplasm of cervix Hospital (procedure) [code = 814734151] Future Scheduled 2021-06-29 INFLUENZA VACCINE [code = [facility] Test 11:36:01 INFLUENZA VACCINE] Hospital Future Scheduled 2021-04-13 INFLUENZA VACCINE (#1[facility] [code = INFLUENZA VACCINE Me dical Center (#1)] Future Scheduled 2021-04-13 INFLUENZA VACCINE (#1) [facility] 00:00:00 [code = INFLUENZA VACCINE Me dical Center (#1)] Future Scheduled 2020-08-[address] [facility] 00:00:00 (12+) [code = DEPRESSION [facility] SCREENING (12+)] Future Scheduled 2020-08-[address] [facility] Test 00:00:00 (12+) [code = DEPRESSION Med ica Center SCREENING (12+)] Future Scheduled 2020-04-13 INFLUENZA VACCINE (#1) [facility] 00:00:00 [code = INFLUENZA VACCINE [facility] (#1)] Future Scheduled 1994 Screening for malignant [facility] Test 00:00:00 neoplasm of cervix Medical C enter (procedure) [code = 564720635] Future Scheduled 1994 Screening for malignant [facility] Test 00:00:00 neoplasm of cervix Medical C enter (procedure) [code = 397814779] Future Scheduled 1994 Screening for malignant [facility] Test 00:00:00 neoplasm of cervix Medical C enter (procedure) [code = 919592244] Future Scheduled 1994 Screening for malignant [facility] Test 00:00:00 neoplasm of cervix Medical C enter (procedure) [code = 689655474] Future Scheduled 1994 Screening for malignant [facility] Test 00:00:00 neoplasm of cervix Medical C enter (procedure) [code = 603744646] Future Scheduled 1994 Screening for malignant [facility] Test 00:00:00 neoplasm of cervix Medical C enter (procedure) [code = 806780261] Future Scheduled 1994 Screening for malignant [facility] Test 00:00:00 neoplasm of cervix Medical C enter (procedure) [code = 749235650] Future Scheduled 1994 Screening for malignant [facility] Test 00:00:00 neoplasm of cervix Medical C enter (procedure) [code = 666179650] Future Scheduled 1994 Screening for malignant [facility] Test 00:00:00 neoplasm of cervix Medical C enter (procedure) [code = 978073918] Future Scheduled 1994 Screening for malignant [facility] Test 00:00:00 neoplasm of cervix Medical C enter (procedure) [code = 831054911] Future Scheduled 1994 Screening for malignant [facility] Test 00:00:00 neoplasm of cervix Medical C enter (procedure) [code = 744267639] Future Scheduled [address] Screening for malignant [facility] Test 00:00:00 neoplasm of cervix Medical C enter (procedure) [code = 330672079] Future Scheduled 1994 Screening for malignant [facility] Test 00:00:00 neoplasm of cervix Medical C enter (procedure) [code = 005781969] Future Scheduled 1991 HEPATITIS C SCREENING CH [...] screening Medical Cent er (procedure) [code = 650345453] Future Scheduled [address] [facility] 00:[facility]00 virus screening [facility] Cent er (procedure) [code = 780670393] Future Scheduled 1985 COVID-19 VACCINE (1) [facility] 00:00:00 [code = COVID-19 VACCINE [facility] (1)] Future Scheduled 1985 COVID-19 VACCINE [...] colon Medical Ce nter (procedure) [code = 120109717] Future Scheduled 1973 Screening for malignant [facility] Test 00:00:00 neoplasm of colon Medical Ce nter (procedure) [code = 195344866] Future Scheduled 1973 Screening for malignant [facility] Test 00:00:00 neoplasm of colon Medical Ce nter (procedure) [code = 908262345] Future Scheduled 1973 Screening for malignant [facility] Test 00:00:00 neoplasm of colon Medical Ce nter (procedure) [code = 000254881] Future Scheduled 1973 Sigmoidoscopy [code = [facility]] Medical Cente r Future Scheduled 1973 CT Colonography (combo) [facility] 00:00:00 [code = CT Colonography [facility] (combo)] Future Scheduled 1973 Screening for malignant [facility] Test 00:00:00 neoplasm of colon Medical Ce nter (procedure) [code = 591689890] Future Scheduled 1973 Screening for malignant [facility] Test 00:00:00 neoplasm of colon Medical Ce nter (procedure) [code = 685956480] Future Scheduled 1973 Screening for malignant [facility] Test 00:00:00 neoplasm of colon Medical Ce nter (procedure) [code = 897828125] Future Scheduled 1973 Screening for malignant [facility] Test 00:00:00 neoplasm of colon Medical Ce nter (procedure) [code = 747201092] Future Scheduled 1973 Sigmoidoscopy [facility]] Medical Cente r Future Scheduled 1973 CT Colonography (combo) [facility] Test 00:00:00 [code = CT Colonography [facility] (combo)] Future Scheduled 1973 Screening for malignant [facility] 00:00:00 neoplasm of colon Medical Ce nter (procedure) [code = 246153470] Future Scheduled 1973 Screening for malignant [facility] 00:00:00 neoplasm of colon Medical Ce nter (procedure) [code = 710335981] Future Scheduled 1973 Screening for malignant [facility] 00:00:00 neoplasm of colon Medical Ce nter (procedure) [code = 661159394] Future Scheduled 1973 Screening for malignant [facility] 00:00:00 neoplasm of colon Medical Ce nter (procedure) [code = 681872270] Future Scheduled 1973 Sigmoidoscopy [facility]code = [facility]] [facility] Cent[facility] Future Scheduled 1973 CT Colonography (combo) [facility] 00:00:00 [code = CT [facility] ([facility])] Future Scheduled 1973 Screening for malignant [facility] 00:00:00 neoplasm of colon Medical Ce nter (procedure) [code = 792218035] Future Scheduled 1973 Screening for malignant [facility] 00:00:00 neoplasm of colon Medical Ce nter (procedure) [code = 350960292] Future Scheduled 1973 Screening for malignant [facility] 00:00:00 neoplasm of colon Medical Ce nter (procedure) [code = 112285676] Future Scheduled 1973 Screening for malignant [facility] 00:00:00 neoplasm of colon Medical Ce nter (procedure) [code = 774400484] Future Scheduled 1973 Sigmoidoscopy [facility]code = [facility]oscopy] Medical Cente r Future Scheduled 1973 CT Colonography (combo) [facility] 00:00:00 [code = CT Colonography [facility] ([facility])] Future Scheduled 1973 Screening for malignant [facility] 00:00:00 neoplasm of colon Medical Ce nter (procedure) [code = 049650650] Future Scheduled 1973 Screening for malignant [facility] 00:00:00 neoplasm of colon Medical Ce nter (procedure) [code = 557412907] Future Scheduled 1973 Screening for malignant [facility] 00:00:00 neoplasm of colon Medical Ce nter (procedure) [code = 282696448] Future Scheduled 1973 Screening for malignant [facility] 00:00:00 neoplasm of colon Medical Ce nter (procedure) [code = 911214362] Future Scheduled 1973 Sigmoidoscopy [facility]code = [facility]] Medical Cente r Future Scheduled 1973 CT Colonography (combo) [facility] 00:00:00 [code = CT Colonography [facility] (combo)] Future Scheduled 1973 Screening for malignant [facility] 00:00:00 neoplasm of colon Medical Ce nter (procedure) [code = 257850961] Future Scheduled 1973 Screening for malignant [facility] 00:00:00 neoplasm of colon Medical Ce nter (procedure) [code = 720918482] Future Scheduled 1973 Screening for malignant [facility] 00:00:00 neoplasm of colon Medical Ce nter (procedure) [code = 482480607] Future Scheduled 1973 Screening for malignant [facility] 00:00:00 neoplasm of colon Medical Ce nter (procedure) [code = 115191157] Future Scheduled 1973 Sigmoidoscopy [facility]code [facility]oscopy] Medical Cente r Future Scheduled 1973 CT Colonography (combo) [facility] 00:00:00 [code = CT Colonography [facility] (combo)] Future Scheduled 1973 Screening for malignant [facility] 00:00:00 neoplasm of colon Medical Ce nter (procedure) [code = 042734293] Future Scheduled 1973 Screening for malignant [facility] 00:00:00 neoplasm of colon Medical Ce nter (procedure) [code = 694610784] Future Scheduled 1973 Screening for malignant [facility] 00:00:00 neoplasm of colon Medical Ce nter (procedure) [code = 068475571] Future Scheduled 1973 Screening for malignant [facility] 00:00:00 neoplasm of colon Medical Ce nter (procedure) [code = 076239373] Future Scheduled 1973 Sigmoidoscopy [facility]code [facility]oscopy] Medical Cente r Future Scheduled 1973 CT Colonography (combo) [facility] 00:00:00 [code = CT Colonography [facility] (combo)] Future Scheduled 1973 Screening for malignant [facility] 00:00:00 neoplasm of colon Medical Ce nter (procedure) [code = 095941704] Future Scheduled 1973 Screening for malignant [facility] 00:00:00 neoplasm of colon Medical Ce nter (procedure) [code = 413625634] Future Scheduled 1973 Screening for malignant [facility] 00:00:00 neoplasm of colon Medical Ce nter (procedure) [code = 223289231] Future Scheduled 1973 Screening for malignant [facility] 00:00:00 neoplasm of colon Medical Ce nter (procedure) [code = 378917340] Future Scheduled 1973 Sigmoidoscopy [code [facility]oscopy] Medical Catherinee r Future Scheduled 1973 CT Colonography (combo) [facility] 00:00:00 [code = CT Colonography [facility] (combo)] Future Scheduled 1973 Screening for malignant [facility] 00:00:00 neoplasm of colon Medical Ce nter (procedure) [code = 873795742] Future Scheduled 1973 Screening for malignant [facility] 00:00:00 neoplasm of colon Medical Ce nter (procedure) [code = 285189213] Future Scheduled 1973 Screening for malignant [facility] 00:00:00 neoplasm of colon Medical Ce nter (procedure) [code = 543292993] Future Scheduled 1973 Screening for malignant [facility] 00:00:00 neoplasm of colon Medical Ce nter (procedure) [code = 056018695] Future Scheduled 1973 Sigmoidoscopy [code = [facility]] Medical Cente r Future Scheduled 1973 Screening for malignant [facility] 00:00:00 neoplasm of colon Medical Ce nter (procedure) [code = 412187820] Future Scheduled 1973 Screening for malignant [facility] 00:00:00 neoplasm of colon Medical Ce nter (procedure) [code = 771791349] Future Scheduled 1973 CT Colonography (combo) [facility] 00:00:00 [code = CT Colonography [facility] (combo)] Future Scheduled 1973 Screening for malignant [facility] 00:00:00 neoplasm of colon Medical Ce nter (procedure) [code = 477309005] Future Scheduled 1973 Screening for malignant [facility] 00:00:00 neoplasm of colon Medical Ce nter (procedure) [code = 516749105] Future Scheduled 1973 Screening for malignant [facility] 00:00:00 neoplasm of colon Medical Ce nter (procedure) [code = 842731098] Future Scheduled 1973 Screening for malignant [facility] 00:00:00 neoplasm of colon Medical Ce nter (procedure) [code = 844031858] Future Scheduled 1973 Sigmoidoscopy [code [facility]] [facility] r Future Scheduled COVID-19 VACCINE (1) [facility] [code = COVID-19 VACCINE Hos pital (1)] Future Scheduled Hepatitis C screening [facility] (procedure) [code = Hospital 449558128] Future Scheduled Screening for malignant [facility] neoplasm of cervix Hospital (procedure) [code = 841595810] Future Scheduled INFLUENZA VACCINE [code = [facility] INFLUENZA VACCINE] Hospital Encounters Start End Encounter Admission Attending Care Care Encounter Source Date/Time Date/Time Type Type Clinicians Facility Department ID 2021-04-25 Outpatient [facility] [id number] [place] 12:[place]:46 [facility] 2020-12-18 Outpatient [facility] [id number] [place] 04:17:31 [facility] 2023-02-12 2023-02-12 Emergency X ANGEL [facility] ERT [id number] Univers 16:33:00 16:46:00 FABRICIO kowalski [facility] 2023-02-12 2023-02-12 Emergency Angel [facility] 1.2.518.176 [id number] Univers 16:33:00 16:46:00 Reneecarloz SAMI 350.1.13.10 i ty of [place] 4.2.7.2.686 [facility] [id number] [address] 2022-12-11 2022-12-12 [facility] [id number] Univers 20:26:00 02:05:00 [facility] 2022-12-11 2022-12-12 Emergency Count includes the [facility] [id number] [id number] Univers 20:26:00 02:05:00 M[place] BRENDAPRAVEENA 350.1.13.10 ity of [place] 4.2.7.2.6 [facility] [id number] [address] 2022-11-27 2022-11-27 Emergency [facility] [id number] Univers 13:12:00 20:16:00 SIMRAN [facility] 2022-11-27 2022-11-27 [facility] 1.2.571.431 [id number] Univers 13:12:00 20:16:00 Simran GALLARDO 350.1.13.10 i ty of [place] 4.2.7.2.[address] [place] [id number] 2022-11-27 2022-11-27 Orders Doctor EISENBERG 1.2.840.114 [id number] Univers 00:00:00 00:00:00 Only Unassigned, JOVANNA 350.1.13.10 ity of [facility] 4.2.7.2.686 [facility] [id number] [address] 2022-08-14 2022-08-14 [facility] 1.2.288.719 [id number] 3415 Univers 20:40:00 23:10:00 Halima GALLARDO 350.1.13.10 ity of [place] 4.2.7.2.686 [facility] [id number] [address] 2022-08-14 2022-08-14 Emergency [facility] [id number] Univers 20:40:00 23:10:00 HALIMA [facility] 2022-05-16 2022-05-16 Outpatient Arceneaux_C VFP VFP 221 1653-20 Village 00:00:00 00:00:00 [id number] Family Practic e 2021-06-29 2021-06-29 Emergency James, 1.2.840.1 [id number] Methodi 10:17:00 12:01:[address] 3.430.2.7 Hospit a .3.025026 l .8 2021-06-29 2021-06-29 Travel 1.2.840.1 1.2.176.267 2053 [id number] Methodi 00:00:00 00:00:[address] 3.430.2.7 0.2.7.3.698 Ho spita .3.631524 084.8 l .8 2021-05-05 2021-05-06 Emergency ER [facility] [id number] 20:22:00 01:24:00 Joe Lai [facility] 2021-05-05 2021-05-05 Emergency ER [facility] Emergency [id number] [facility] 20:07:00 20:07:00 2021-05-05 2021-05-05 Travel [facility] [id number] [facility] 00:00:00 [facility] 2021-04-25 2021-04-25 Office VINCE Olivares [facility] 1.2.840.114 [id number] [place] 10:00:00 12:28:43 Visit Leandro [facility] 350.1.13.58 H BAILEY 4 9.2.7.2.686 [id number] 4 2021-02-18 2021-02-18 Emergency E MATTHIAS [facility] 08:39:00 12:51:00 TEJAL 2021-02-08 2021-02-08 Orders VINCE Henriquez [facility] 1.2.840.114 [id number] 00:00:00 00:00:00 Only [place] [facility] 350.1.13.58 [address] 4 9.2.7.2.686 [id number] 4 2021-02-08 2021-02-08 Orders Waleska Henriquez [facility] 1.2.840.11 4 [id number] [place] 00:00:00 00:00:00 Only [place] Henriquez MED 350.1.13.58 [facility] PLAZA 4 9.2.7.2.686 [id number] 4 2020-12-20 2020-12-20 Telephone Vinson, 1.2.840.1 [id number] 2100 [id number] Methodi 00:00:00 00:00:[address] 3.430.2.7 Hospit a .3.718817 l .8 2020-12-16 2020-12-16 VINCE Dimas [facility] 7410 7276 [place] 11:00:00 11:00:00 t; LEANDRO OLIVARES, Advanced P jn PANTOJA M.D. Cardiology [facility] M.DAvery [facility] 2020-12-14 2020-12-14 Telephone Vinson, 1.2.840.1 [id number] 2100 608584 Methodi 00:00:00 00:00:[address] 3.430.2.7 Hospit a .3.587398 l .8 2020-12-07 2020-12-08 Outpatient E ERLINDA, [facility] PUL [address] 17:43:00 13:15:00 VIRAL 2020-12-08 2020-12-08 EXT [facility] OP Conniealid, EXT MSRDP 1.2.840.114 1 [id number] [place] 00:00:00 00:00:00 Adnan LOCATION 350.1.13.58 H ealth 9.2.7.2.686 [id number] 0 2020-12-08 2020-12-08 EXT [facility] OP Khalid, EXT MSRDP 1.2.840.114 1 [id number] [place] 00:00:00 00:00:00 Adnan LOCATION 350.1.13.58 H ealth 9.2.7.2.686 [id number] 0 2020-12-06 2020-12-06 Appointmen JEANNIE [facility] [id number] [place] 14:00:00 14:00:00 t; BANKIM BEHARI Phys ici millicent CHAMBERS SANDIPAN SANDIPAN PATI, M.D. PATI, M.D. 2020-12-03 2020-12-06 [facility] 1.2.840.1 [id number] Methodi 16:45:00 11:32:00 Encounter Obdulio Ragland 08318.1.[address] 3.430.2.7 Hospit a .3.906905 l .8 2020-12-02 2020-12-02 Appointmen [facility]ES [facility] [id number] [place] 11:15:00 11:15:00 t; LEANDRO OLIVARES, Surgery - Chalo Cruz M.D. 2020-11-17 2020-11-17 Emergency García, 1.2.840.1 [id number] 2100 [id number] Methodi 17:26:00 20:59:[address] Mendel 3.430.2.7 Hospit a .3.447851 l .8 2020-11-17 2020-11-17 [facility]IN[facility] MATHEWS UTP [id number] 45 [place] 15:00:00 15:00:00 t; Carter ROQUE i, M.D. ans ASHTON, M.D. 2020-11-17 2020-11-17 Travel 1.2.840.1 1.2.337.139 5520 [id number] Methodi 00:00:00 00:00:[address] 3.430.2.7 0.2.7.3.698 Ho spita .3.524696 084.8 l .8 2020-11-02 2020-11-03 Emergency Dionicio, 1.2.840.1 [id number] 2 [id number] Methodi 23:00:00 01:47:[address] Nelsy 3.430.2.7 Hospit a .3.530341 l .8 2020-11-02 2020-11-02 Travel 1.2.840.1 1.2.593.839 0960 260901 Methodi 00:00:00 00:00:[address] 3.430.2.7 0.2.7.3.698 Ho spita .3.589369 084.8 l .8 2020-09-16 2020-09-17 Emergency [place]. 1.2.840.1 1 81343 [id number] Methodi 13:34:00 13:30:00 Clarice Brannon 74788.1.[address] Lj Thakkar Britni 3.430.2.7 Hospita .3.204057 l .8 2020-09-10 2020-09-11 Emergency Jose Elias Torres A. 1.2.840.1 1041 77365 [id number] Methodi 22:04:00 18:12:00 Lydia Oden 00060.1.[address] Maribel Dickey 3.430.2.7 H ospita Lj Thakkar Britni .3.500264 l .8 2020-09-10 2020-09-10 Travel 1.2.840.1 1.2.648.608 5864 171704 Methodi 00:00:00 00:00:[address] 3.430.2.7 0.2.7.3.698 Ho spita .3.887005 084.8 l .8 2020-07-15 2020-07-16 Emergency Pedro, 1.2.840.1 [id number] 2099 113557 Methodi 20:20:00 01:48:[address] Mendel 3.430.2.7 Hospit a .3.898079 l .8 2020-07-15 2020-07-15 Travel 1.2.840.1 1.2.291.219 6419 353756 Methodi 00:00:00 00:00:[address] 3.430.2.7 0.2.7.3.698 Ho spita .3.075186 084.8 l .8 2020-05-06 2020-05-08 Emergency Kevin Sood 1.2.840.1 1041 19093 [id number] Methodi 00:09:00 12:49:00 Blaze Squires [address]682.1.[address] 3.430.2.7 Hospit a .3.473816 l .8 2020-05-06 2020-05-06 Travel 1.2.840.1 1.2.695.065 1727 086688 Methodi 00:00:00 00:00:[address] 3.430.2.7 0.2.7.3.698 Ho spita .3.432847 084.8 l .8 2020-02-20 2020-02-20 Emergency ER [facility] Emergency [id number] [facility] 19:04:00 19:04:00 2020-02-20 2020-02-20 Outpatient FBCOVID FBCOVID [id number] FBCOVID 00:00:00 00:00:00 [id number] 3378-06-24 2020-02-04 Outpatient Mason [facility] [id number] [facility] 10:15:00 23:59:00 CWANZA [facility] 2020-02-04 2020-02-04 Emergency ER [facility] Emergency [id number] [facility] 05:29:00 05:29:00 2019-12-03 2019-12-03 Emergency BRITNI VIVAS [facility] 7501 Memoria 16:11:00 19:03:00 [facility] 2019-12-03 2019-12-03 Outpatient KARISHMA, [facility] 0122 Memoria 17:00:00 18:55:00 THOMAS [facility] 2019-10-12 2019-10-12 Emergency [facility] [id number] [facility] 17:06:00 17:06:00 [id number] 2019-08-25 2019-08-25 Emergency E [facility]NW [facility] 0013 [facility] 17:44:00 17:44:00 2016-02-13 2016-02-13 EC nullFlavo [facility] [id number] 475 Memoria 05:43:00 11:41:00 Emergency r [place] 00 l [facility] 2016-02-13 2016-02-13 EC nullFlavo [facility] [id number] 475 Memoria 05:43:00 11:41:00 Emergency r [place] 00 l [facility] 2016-02-13 2016-02-13 Outpatient Sravanthi [facility] [id number] 00:43:00 06:41:00 Malorie 00 Suzanne 2014-09-04 2014-09-04 EC nullFlavo [facility] [id number] 675 Memoria 07:09:00 09:15:00 Emergency r [place] 19 l [facility] 2014-09-04 2014-09-04 EC nullFlavo [facility] [id number] 675 Memoria 07:09:00 09:15:00 Emergency r [place] 19 l [facility] 2014-09-04 2014-09-04 Outpatient [facility], 2.16.840. 2.16.840.1. [id number] 01:09:00 03:15:00 Tatsuo 1.852545. 002905.3.61 19 3.615.0.1 5.0.038 62 0476-01-12 2014-08-24 EC nullFlavo [facility] [id number] 675 Memoria 17:17:00 22:15:00 Emergency r [place] 18 l [facility] 2014-08-24 2014-08-24 EC nullFlavo [facility] [id number] 675 Memoria 17:17:00 22:15:00 Emergency r [place] 18 l [facility] 2014-08-24 2014-08-24 Outpatient [facility], 2.16.840. 2.16.840.1. [id number] 11:17:00 16:15:00 Tatsuo 1.857599. 891646.3.61 18 3.615.0.1 5.0.101 01 Results Test Description [...] 34.2 g/dL 31.6-35.1 RDW-SD (test code = 78375-7) 40.3 fL 39.0-49.9 RDW-CV (test code = 788-0) 12.5 % 12.0-15.5 PLT (test code = 777-3) 437 See_Comment H [Au tomated message] The system which ge nerated this result transmit gaye reference range: 166 - 35 8 10*3/?L. The reference range was not used to interpret th is result as normal/abnormal . MPV (test code = 60046-8) 9.9 fL 9.5-12.9 NRBC/100 WBC (test code = 0.0 See_Comment [ Automated message] The 5585175097) system which ge nerated this result transmit gaye reference range: 0.0 - 10 .0 /100 WBCs. The reference r ozzy was not used to interpr et this result as normal/abnor mal. NRBC x10^3 (test code = See_Comment [Au tomated message] The 7779541602) system which ge nerated this result transmit gaye reference range: 10*3/?L. The reference range was not u sed to interpret this result as normal/abnormal . SEG % (test code = 15794-3) 41 % 33-76 LYMPH % (test code = 48 % 14-54 63089-8) MONO % (test code = 68229-7) 8 % 0-4 H EOS % (test code = 48069-6) 3 % 0-3 ANC (test code = 753-4) 4.28 10*3/uL 1.88-7.09 Lab Interpretation (test Abnormal code = 85809-9) [facility]. METABOLIC PANEL ([id number])2022-12-12 05:29:31 Test Item Value Reference Range Interpretation Comments NA (test code = 138 mmol/L 135-145 4173583879) K (test code = 4.3 mmol/L 3.5-5.0 1834172456) CL (test code = 106 mmol/L 98-108 2257721426) CO2 TOTAL (test code = 21 mmol/L 23-31 L 3461672636) AGAP (test code = 11 2-16 6698357153) BUN (test code = 8 mg/dL 7-23 5754004511) GLUCOSE (test code = 113 mg/dL 70-110 H 2049597644) CREATININE (test code = 0.59 mg/dL 0.50-1.04 0505630051) TOTAL BILI (test code = 1.0 mg/dL 0.1-1.5 0104011408) CALCIUM (test code = 9.3 mg/dL 8.6-10.6 7132281065) T PROTEIN (test code = 7.3 g/dL 6.3-8.2 3659094942) ALBUMIN (test code = 4.3 g/dL 3.5-5.0 6067706735) ALK PHOS (test code = 59 U/L 34-122 1551128362) ALTv (test code = 25 U/L 5-35 1742-6) AST(SGOT) (test code = 24 U/L 13-40 4138307494) eGFR (test code = 108.3 mL/min/1.73m2 6706430955) CIRO (test code = CIRO) Association of [...] tests). Lab Interpretation Abnormal (test code = 75549-6) [facility] Test Item Value Reference Range Interpretation Comments LIPASE (test code = 4621108077) 133 U/L 0-220 Lab Interpretation (test code = Normal 30242-6) [facility] [id number] 23:18:00 Test Item Value Reference Range Interpretation Comments POCT PREG (test code = 1605) Negative On board controls acceptable with Present C Line (test code = 3574) POCT PREG LOT # (test code = 3536) [id number] POCT PREG TEST DATE (test 05-18-2024 code = 3576) Lab Interpretation (test code = Normal 40714-0) [facility] (NA, K, CL, CO2, GLUCOSE, BUN, CREATININE, CA)2022-11-27 20:08:10 Test Item Value Reference Range Interpretation Comments NA (test code = 138 mmol/L 135-145 6811790708) K (test code = 4.7 mmol/L 3.5-5.0 1886671432) CL (test code = 104 mmol/L 98-108 5672945376) CO2 TOTAL (test code = 21 mmol/L 23-31 L 6607155266) AGAP (test code = 13 2-16 2347346200) BUN (test code = 6 mg/dL 7-23 L 8326950487) GLUCOSE (test code = 98 mg/dL 70-110 0349169286) CREATININE (test code = 0.55 mg/dL 0.50-1.04 5395348481) CALCIUM (test code = 9.0 mg/dL 8.6-10.6 8436469060) eGFR (test code = 117.5 mL/min/1.73m2 1992108895) CIRO (test code = CIRO) Association of [...] tests). Lab Interpretation Abnormal (test code = 07737-0) [facility] WITH [id number] 19:53:46 Test Item Value Reference Range Interpretation Comments WBC (test code = 9.87 See_Comment [Automated 6690-2) message] The sy stem which generated this result transmitted reference range : 4.30 - 11.10 10*3/?L. The reference range was not used to interpret this result as normal/abnormal . RBC (test code = 4.86 See_Comment [Automated 789-8) message] The sy stem [...] RDW-SD (test code = 41.0 fL 39.0-49.9 53530-9) RDW-CV (test code = 12.8 % 12.0-15.5 788-0) PLT (test code = 399 See_Comment H [Automated 777-3) message] The sy stem which generated this result transmitted reference range : 166 - 358 10*3/ ?L. The reference r ozzy was not used to interpret this result as normal/abnormal . MPV (test code = 9.6 fL 9.5-12.9 62075-9) NRBC/100 WBC (test 0.0 See_Comment [Automat ed code = 4714512223) message] The system which generated this result transmitted reference range : 0.0 - 10.0 /100 WBCs. The refer ence range was not u sed to interpret th is result as normal/abnormal . NRBC x10^3 (test code See_Comment [Auto mated = 4672449474) message] The s [employer] which generated this result transmitted reference range : 10*3/?L. The reference range was not used to interpret this result as normal/abnormal . GRAN MAT (NEUT) % 57.8 % (test code = 770-8) IMM GRAN % (test code 0.70 % = 7976702089) LYMPH % (test code = 32.4 % 736-9) MONO % (test code = 5.2 % 5905-5) EOS % (test code = 3.0 % 713-8) BASO % (test code = 0.9 % 706-2) GRAN MAT x10^3(ANC) 5.70 10*3/uL 1.88-7.09 (test code = 5411741362) IMM GRAN x10^3 (test 0.07 10*3/uL 0.00-0.06 H code = 2320173772) LYMPH x10^3 (test code 3.20 10*3/uL 1.32-3.29 = 731-0) MONO x10^3 (test code 0.51 10*3/uL 0.33-0.92 = 742-7) EOS x10^3 (test code = 0.30 10*3/uL 0.03-0.39 711-2) BASO x10^3 (test code 0.09 10*3/uL 0.01-0.07 H = 704-7) Lab Interpretation Abnormal (test code = 02851-0) [facility] [id number] 04:20:10 Test Item Value Reference Range Interpretation Comments PREG SERUM (test code Negative = 8523712727) CIRO (test code = CIRO) Less than 10 IU/L. ?If low titer or ectopic is suspected, resubmit specimen in 48-72 hours. [facility] [id number] 03:49:08 Test Item Value Reference Interpretation Comments Range TROPONIN I (test 0.001 ng/mL See_Comment [Automated code = 9030937929) message] The system which generated this result [...] biotin. Lab Interpretation Normal (test code = 22411-3) [facility]. METABOLIC PANEL (64676)2022-08-15 03:37:26 Test Item Value Reference Range Interpretation Comments NA (test code = 138 mmol/L 135-145 7923163576) K (test code = 3.6 mmol/L 3.5-5.0 4930979190) CL (test code = 105 mmol/L 98-108 7136210765) CO2 TOTAL (test code 24 mmol/L 23-31 = 8300382119) AGAP (test code = 2-16 4510078294) BUN (test code = 9 mg/dL 7-23 8846836291) GLUCOSE (test code = 105 mg/dL 70-110 9942218837) CREATININE (test code 0.75 mg/dL 0.50-1.04 = 4976797500) TOTAL BILI (test code 0.6 mg/dL 0.1-1.1 = 3192601432) CALCIUM (test code = 8.7 mg/dL 8.6-10.6 0362369114) T PROTEIN (test code 6.7 g/dL 6.3-8.2 = 5281339643) ALBUMIN (test code = 3.9 g/dL 3.5-5.0 8916678859) ALK PHOS (test code = 69 U/L 34-122 2257868816) ALTv (test code = 35 U/L 5-35 1742-6) AST(SGOT) (test code 27 U/L 13-40 = 3599671940) eGFR (test code = mL/min/1.73m2 3890456319) CIRO (test code = CIRO) Association of [...] or urine or abnormalities in imaging tests). [facility] WITH [id number] 03:25:05 Test Item Value Reference Range Interpretation Comments WBC (test code = See_Comment [Automated 8923-2) message] The sy stem which generated this result transmitted reference range : 4.30 - 11.10 10*3/?L. The reference range was not used to interpret this result as normal/abnormal . RBC (test code = See_Comment [Automated 141-8) message] The sy stem which generated this [...] RDW-SD (test code = 41.3 fL 39.0-49.9 32781-6) RDW-CV (test code = 12.5 % 12.0-15.5 788-0) PLT (test code = See_Comment H [Automated 777-3) message] The sy stem which generated this result transmitted reference range : 166 - 358 10*3/ ?L. The reference r ozzy was not used to interpret this result as normal/abnormal . MPV (test code = 9.4 fL 9.5-12.9 L 22974-6) NRBC/100 WBC (test See_Comment [Automat ed code = 8110436268) message] The system which generated this result transmitted reference range : 0.0 - 10.0 /100 WBCs. The refer ence range was not u sed to interpret th is result as normal/abnormal . NRBC x10^3 (test code See_Comment [Auto mated = 8288081101) message] The s ystem which generated this result transmitted reference range : 10*3/?L. The reference range was not used to interpret this result as normal/abnormal . GRAN MAT (NEUT) % 55.2 % (test code = 770-8) IMM GRAN % (test code 0.50 % = 2783001811) LYMPH % (test code = 30.7 % 736-9) MONO % (test code = 6.4 % 5905-5) EOS % (test code = 6.2 % 713-8) BASO % (test code = 1.0 % 706-2) GRAN MAT x10^3(ANC) 5.54 10*3/uL 1.88-7.09 (test code = 3433279756) IMM GRAN x10^3 (test 0.05 10*3/uL 0.00-0.06 code = 3244790153) LYMPH x10^3 (test code 3.08 10*3/uL 1.32-3.29 = 731-0) MONO x10^3 (test code 0.64 10*3/uL 0.33-0.92 = 742-7) EOS x10^3 (test code = 0.62 10*3/uL 0.03-0.39 H 711-2) BASO x10^3 (test code 0.10 10*3/uL 0.01-0.07 H = 704-7) Lab Interpretation Abnormal (test code = 42216-5) [facility] wplgv5767-[facility]-11 14:27:33 Test Item Value Reference Interpretation Comments Range Levetiracetam (test <2.0 mcg/mL L Referen ce Range: code = 5819719) 12.0-46.0 To xic level is not we ll established. Interpretation should include a clinical evalua tion. For additional information, pl ease refer tohttp://Blossom ionFoodtoeat/ faq/IDQ665(This link is being provid ed forNurixationa l/edu cational purpos es only.) This jose t was developed and i ts analytical performance characteristics have been determined by [employer]. It has not been cleared or appr christiano by theFDA. This assay has been validated pursu ant to the CLIA regulations and is used for clinic al purposes. CIRO (test code = Performing Lab CIRO) *GAGANDEEP [facility], [address] [place] [phone] Parminder Szymanski MD Lab Interpretation Abnormal (test code = 01928-7) [facility]et[facility] nflfp1168-66-12 14:27:33 Test Item Value Reference Interpretation Comments Range Levetiracetam (test <2.0 mcg/mL L Referen ce Range: code = 0795183) 12.0-46.0 To xic level is not we ll established. Interpretation should include a clinical evalua tion. For additional information, pl ease refer tohttp://[employer]/ faq/ALS331(This link is being provid ed forinformationa l/edu cational purpos es only.) This jose t was developed and i ts analytical performance characteristics have been determined by [employer]. It has not been cleared or appr christiano by theFDA. This assay has been validated pursu ant to the CLIA regulations and is used for clinic al purposes. CIRO (test code = Performing Lab CIRO) *GAGANDEEP [employer]-[facility], [address] [place] [phone] Parminder Szymanski MD Lab Interpretation Abnormal (test code = 68268-6) [facility] CenterCT, BRAIN, WITHOUT [id number] 23:05:00 Unlisted Reason for Exam - Click Yes and Enter Reason Below->No [facility] 1975 Sex: FFINAL REPORT [...] Date/Time: 05/05/2021 23:05:29 CT, SPINE, CERVICAL, WO [id number] 23:05:00Unlisted Reason for Exam - Click Yes and Enter Reason Below->No [facility] : 1975 Sex: FFINAL REPORT [...] Aneudy Asencio MDReport Verified Date/Time: 05/05/2021 23:05:29 [facility] [id number] 21:22:45 Test Item Value Reference Range Interpretation Comments Troponin I (test code = <0.03 0.00-0.15 47105-7) CIRO (test code = CIRO) Troponin I [...] failure, acidosis, acute neurological disease, and persistent tachyarrhythmia.[facility] ID - THELMA Lab Interpretation (test Normal code = 82176-8) [facility] [id number] 21:22:45 Test Item Value Reference Range Interpretation Comments Troponin I (test code = <0.03 0.00-0.15 10306-7) CIRO (test code = CIRO) Troponin I [...] failure, acidosis, acute neurological disease, and persistent tachyarrhythmia.[facility] ID - THELMA Lab Interpretation (test Normal code = 96137-6) [facility] [id number] 21:22:45 Test Item Value Reference Range Interpretation [...] failure, acidosis, acute neurological disease, and persistent tachyarrhythmia.[employer] ID - JUSTINComprehensive metabolic [id number] 21:20:36 Test Item Value Reference Interpretation Comments Range Protein, Total (test 7.5 See_Comment Specime n code = 2885-2) slightly hemolyzed [Automated message] The system which generated this result transmitted reference range : 6.0 - 8.5 gm/dL . The reference range was not used to interpret this result as normal/abnormal . Albumin (test code = 4.1 g/dL 3.5-5[place]0 [place] [address]-2) slightly hemolyzed Alkaline Phosphatase 72 U/L 30-115 (test code = 6768-6) Total Bilirubin 1.0 mg/dL 0.1-1.2 Specimen (test code = 1974-2) slightl y hemolyzed Sodium (test code = 141 meq/L 114-989 6245-2) Potassium (test code 3.8 meq/L 3.6-5.5 Specime n = 2823-3) slightly hemolyzed Chloride (test code 104 meq/L 98-106 = 5-0) CO2 (test code = 24 meq/L 20-29 2027-9) BUN (test code = 7 mg/dL 10-26 L 3094-0) Creatinine (test 0.81 mg/dL 0.50-1.20 Specimen code = 2160-0) slightly hemolyzed Glucose (test code = 92 mg/dL 70-110 5-7) Calcium (test code = 9.4 mg/dL 8.5-10.5 98822-4) AST (test code = 21 U/L 5-40 Specimen 1919-8) slightly hemolyzed ALT (test code = 27 U/L 5-50 Specimen 1742-6) slightly hemolyzed EGFR (test code = 76 mL/min/1.73 [place] [address]-9) m NOT ACCURATE CREATININE CLEARANCE IN PREDICTING GLOMERULAR FILTRATION RATE . ESTIMATED GFR I S NOT APPLICABLE FOR DIALYSIS PATIENTS. CIRO (test code = Driving School Instructor ID - CIRO) JUSTINOperator ID - JUSTINOperator [...] THELMA Lab Interpretation Abnormal (test code = 40214-7) [facility] CenterComprehensive metabolic [id number] 21:20:36 Test Item Value Reference Interpretation Comments Range Protein, Total (test 7.5 See_Comment Specime n code = 2885-2) slightly hemolyzed [Automated message] The system which generated this result transmitted reference range : 6.0 - 8.5 gm/dL . The reference range was not used to interpret this result as normal/abnormal . Albumin (test code = 4.1 g/dL 3.5-5.0 [place] [address]-7) slightly hemolyzed Alkaline Phosphatase 72 U/L 30-115 (test code = 6768-6) Total Bilirubin 1.0 mg/dL 0.1-1.2 Specimen (test code = 1974-2) slightl y hemolyzed Sodium (test code = 141 meq/L 993-099 3453-2) Potassium (test code 3.8 meq/L 3.6-5.5 Specime n = 2823-3) slightly hemolyzed Chloride (test code 104 meq/L 98-106 = 2074-0) CO2 (test code = 24 meq/L -29 2027-) BUN (test code = 7 mg/dL 10-26 L 3094-0) Creatinine (test 0.81 mg/dL 0.50-1.20 Specimen code = 2160-0) slightly hemolyzed Glucose (test code = 92 mg/dL 70-110 2345-7) Calcium (test code = 9.4 mg/dL 8.5-10.5 13870-6) AST (test code = 21 U/L 5-40 Specimen 1920-8) slightly hemolyzed ALT (test code = 27 U/L 5-50 Specimen 1742-6) slightly hemolyzed EGFR (test code = 76 mL/min/1.[place] [address]-6) m NOT ACCURATE CREATININE CLEARANCE IN PREDICTING GLOMERULAR FILTRATION RATE . ESTIMATED GFR I S NOT APPLICABLE FOR DIALYSIS PATIENTS. CIRO (test code = Driving School Instructor ID - CIRO) JUSTINOperator ID - JUSTINOperator [...] THELMA Lab Interpretation Abnormal (test code = 45795-8) [facility] CenterCOMPREHENSIVE METABOLIC [id number] 21:20:36 Test Item Value Reference Range Interpretation [...] S NOT APPLICABLE FOR DIALYSIS PATIEN TS. Driving School Instructor ID - JUSTINOperator ID - JUSTINOperator ID - JUSTINOperator ID - JUSTINOperator ID - JUSTINOperator ID - JUSTINOperator ID - JUSTINOperator ID - JUSTINOperator ID - JUSTINOperator ID - JUSTINOperator ID - JUSTINOperator ID - JUSTINOperator ID - JUSTINOperator ID - JUSTINOperator ID - JUSTINOperator ID - JUSTINOperator ID - JUSTINOperator ID - JUSTINOperator ID - JUSTINCBC with platelet count + automated [id number] 20:51:36 Test Item Value Reference Range Interpretation Comments WBC (test code = 6690-2) 12.0 See_Comment H [A utomated message] The system [employer] generated this result transmitted ref erence range: 4.0 - 10 .0 K/L. The refe rence range was not u sed to interpret this result as normal/abnor mal. RBC (test code = 789-8) 4.84 See_Comment [Au tomated message] The system [employer] generated this result transmitted ref erence range: 4.00 - 5 .00 M/L. The refe rence range was not u sed to interpret this result as normal/abnor mal. MCHC (test code = 786-4) 34.8 See_Comment [A utomated message] The system [employer] generated this result transmitted ref erence range: [...] H [Aut omated message] 777-3) The system [employer] generated this result transmitted ref erence range: 150 - 43 0 K/CU MM. The referen ce range was not u sed to interpret this result as normal/abnor mal. MPV (test code = 9.7 fL 6.0-11.5 93064-7) nRBC (test code = 413) 0 See_Comment [Aut omated message] The system [employer] generated this result transmitted ref erence range: [...] See_Comment [Aut omated message] 670) The system [employer] generated this result transmitted ref erence range: 1.80 - 8 .00 K/L. The refe rence range was not u sed to interpret this result as normal/abnor mal. # Lymphs (test code = 3.61 See_Comment [Auto mated message] 414) The system [employer] generated this result transmitted ref erence range: 1.48 - 4 .50 K/L. The refe rence range was not u sed to interpret this result as normal/abnor mal. # Monos (test code = 0.86 See_Comment [Autom ated message] 415) The system [employer] generated this result transmitted ref erence range: 0.00 - 1 .30 K/L. The refe rence range was not u sed to interpret this result as normal/abnor mal. # Eos (test code = 416) 0.41 See_Comment [Au tomated message] The system [employer] generated this result transmitted ref erence range: 0.00 - 0 .50 K/L. The refe rence range was not u sed to interpret this result as normal/abnor mal. # Baso (test code = 417) 0.10 See_Comment [A utomated message] The system [employer] generated this result transmitted ref erence range: 0.00 - 0 .20 K/L. The refe rence range was not u sed to interpret this result as normal/abnor mal. Immature 0 % 0-0 Granulocytes-Relative (test code = 2801) Lab Interpretation (test Abnormal code = 78639-4) [facility] with platelet count + automated [id number] 20:51:36 Test Item Value Reference Range Interpretation Comments WBC (test code = 6690-2) 12.0 See_Comment H [A utomated message] The system [employer] generated this result transmitted ref erence range: 4.0 - 10 .0 K/L. The refe rence range was not u sed to interpret this result as normal/abnor mal. RBC (test code = 789-8) 4.84 See_Comment [Au tomated message] The system [employer] generated this result transmitted ref erence range: 4.00 - 5 .00 M/L. The refe rence range was not u sed to interpret this result as normal/abnor mal. MCHC (test code = 786-4) 34.8 See_Comment [A utomated message] The system [employer] generated this result transmitted ref erence range: [...] H [Aut omated message] 777-3) The system [employer] generated this result transmitted ref erence range: 150 - 43 0 K/CU MM. The referen ce range was not u sed to interpret this result as normal/abnor mal. MPV (test code = 9.7 fL 6.0-11.5 71389-5) nRBC (test code = 413) 0 See_Comment [Aut omated message] The system [employer] generated this result transmitted ref erence range: [...] See_Comment [Aut omated message] 670) The system [employer] generated this result transmitted ref erence range: 1.80 - 8 .00 K/L. The refe rence range was not u sed to interpret this result as normal/abnor mal. # Lymphs (test code = 3.61 See_Comment [Auto mated message] 414) The system [employer] generated this result transmitted ref erence range: 1.48 - 4 .50 K/L. The refe rence range was not u sed to interpret this result as normal/abnor mal. # Monos (test code = 0.86 See_Comment [Autom ated message] 415) The system [employer] generated this result transmitted ref erence range: 0.00 - 1 .30 K/L. The refe rence range was not u sed to interpret this result as normal/abnor mal. # Eos (test code = 416) 0.41 See_Comment [Au tomated message] The system [employer] generated this result transmitted ref erence range: 0.00 - 0 .50 K/L. The refe rence range was not u sed to interpret this result as normal/abnor mal. # Baso (test code = 417) 0.10 See_Comment [A utomated message] The system [employer] generated this result transmitted ref erence range: 0.00 - 0 .20 K/L. The refe rence range was not u sed to interpret this result as normal/abnor mal. Immature 0 % 0-0 Granulocytes-Relative (test code = 2801) Lab Interpretation (test Abnormal code = 96628-0) [facility] W/PLT COUNT & AUTO [id number] 20:51:36 Test Item Value Reference Range Interpretation [...] (BEAKER) (test code = 2801) Continuous EEG rvlclywdhs3273-78-22 01:51:44CONTINUOUS VIDEO-EEG MONITORING REPORT - END OF STUDY Patient Name: Shanna BillsRN#: [id number] Date of : 1975 Initial Study Start [...] seizures captured. Onelia Hair MD ICD-10 Code: R917Wfirnwqhcw EEG cmzgxihnej8156-24-50 12:59:42 CONTINUOUS VIDEO-EEG MONITORING REPORT Patient Name: Shanna BillsN#: [id number] Date of : 1975 Initial Study Start [...] seizures captured. Onelia Hair MD ICD-10 Code: K137GAR 12 peig9158-93-90 05:31:10 Test Item Value Reference Range Interpretation Comments Ventricular rate (test code = 253) Atrial rate (test code = 255) AR interval (test code = 266) QRSD interval [...] 04:27,-Vent. rate has increased BY 62 BPM- [facility] eerp8017-16-22 05:31:10 Test Item Value Reference Range Interpretation Comments Ventricular rate (test code = 253) Atrial rate (test code = 255) AR interval (test code = 266) QRSD interval [...] BY 62 BPM- [facility] 12 [id number] 05:31:10 Test Item Value Reference Range Interpretation Comments Ventricular rate (test code = 253) Atrial rate (test code = 255) AR interval (test code = 266) QRSD interval [...] 04:27,-Vent. rate has increased BY 62 BPM- [facility] (routine) - Baseline [id number] 01:47:11VIDEO-EEG RECORDING AWAKE & ASLEEP - Baseline for bedside EEG Date of Service:12/04/20 Patient Name: Shanna uNr of : 1975 Attending MD: Onelia Hair [...] Hair MD ICD-10 Code: R569CT Head Wo Kaplgiwp0771-88-98 02:53:14EXAMINATION: CT HEAD WO CONTRAST CLINICAL HISTORY: [...] No CT evidence of acute intracranial abnormality. [id number] Interface, Radiology Results [facility] - 12/03/2020 9:56 PM CDT EXAMINATION: CT [...] IMPRESSION:1. No CT evidence of acute intracranial abnormality.[id number] [facility] RNA [Presence] in Respiratory specimen by SOREN with probe gfbgwjmku7830-28-24 02:03:42 Test Item Value Reference Range Interpretation Comments SARS-CoV-2 (COVID-19) RNA Not detected Not-Detected [Presence] in Respiratory specimen by SOREN with probe detection (test code = 11285-1) Whether patient is employed in a healthcare setting (test code = 95389-5) Whether the patient has symptoms related to condition of interest (test code = 00292-0) Patient was hospitalized because of this condition (test code = 83494-9) Whether the patient was admitted to intensive care unit (ICU) for condition of interest (test code = 34532-4) Whether patient resides in a congregate care setting (test code = 45706-6) TANNA PISANOXR Chest 1 Vw Jtrujwyc6130-09-62 23:58:22EXAMINATION: XR CHEST 1 VW PORTABLE CLINICAL [...] no consolidation or effusion.3.The bones are intact.1D2RAD_P K07Qhttaicjs [facility] [id number] 21:55:13Bladimir Brumfield MD 12/04/2020 3:12 PMCritical CarePerformed by: Bladimir Brumfield MDAuthorized by: Bladimir Cisse MD Critical care provider statement: Critical care time (minutes): 35 Critical caretime was exclusive of: Separately billable procedures and treating other patients Critical care was necessary to treat or prevent imminent or life-threatening deterioration of the following conditions:DIE REPAIRER FORGING failure or compromise Critical care was time [...] Hospital ED Preliminary Interpretation - Not an Orqri3600-74-70 21:55:13 Bladimir Brumfield MD 12/04/2020 3:12 PMECG ED Preliminary Interpretation - Not an OrderPerformed by: Bladimir Brumfield MDAuthorized by: Bladimir Brumfield MD ECG reviewed by ED Physician in the absence of a cane pusher: yes Rate: ECG rate: 119Rhythm: Rhythm: sinus tachycardia Ectopy: Ectopy: none QRS: QRS axis: Normal QRS intervals: NormalConduction: Conduction: normal ST segments: ST segments: NormalT waves: T waves: normalUrine iniojhu7158-26-63 01:10:19 Test Item Value Reference Range Interpretation Comments Urine culture (test SEE COMMENT Bacteriu mario screen code = 4861403) negative. [facility] fsfxbfh1415-42-80 01:10:19 Test Item Value Reference Range Interpretation Comments Urine culture (test SEE COMMENT Bacteriu mario screen code = 2310157) negative. [facility] kmrdyer0643-96-60 01:10:19 Test Item Value Reference Range Interpretation Comments Urine culture (test SEE COMMENT Bacteriu mario screen code = 7551816) negative. [facility][U] XRAY HAND MIN 3 VWS RIGHT [id number] 15:17:00Images acquired, not reported on this accession number.[facility] Hand 3+ Vw Right 2020-11-03 04:37:16EXAMINATION: XR HAND 3 VW RIGHT INDICATION: dog bite COMPARISON: None IMPRESSION: 3 views of the right hand were obtained.No visible acute fracture or dislocation.No visible radiodense foreign material. [facility], Radiology Results Incoming - 11/02/2020 11:40 PM CDT EXAMINATION: XR HAND 3 VW RIGHTINDICATION: dog biteCOMPARISON: NoneIMPRESSION:3 views of the right hand were obtained.No visible acute fracture or dislocation.No visible radiodense foreign material.[facility]EE (routine) 2020-09-17 16:59:35Date of Study Completion: [...] movements noted on this tracing by the calibration laboratory technician did not have an epileptic [...] in Respiratory specimen by SOREN with probe dvjmutgbn9313-97-70 00:31:49 Test Item Value Reference Range Interpretation Comments SARS-CoV-2 (COVID-19) RNA Not detected Not-Detected [Presence] in Respiratory specimen by SOREN with probe detection (test code = 76934-1) [facility]2020-09-11 20:16:18Date of Service: September 11ate of [...] in Respiratory specimen by SOREN with probe ttkombutf9011-03-50 07:15:55 Test Item Value Reference Range Interpretation Comments SARS-CoV-2 (COVID-19) RNA Not detected Not-Detected [Presence] in Respiratory specimen by SOREN with probe detection (test code = 28178-7) [facility] Abdomen Pelvis Wo Ojybckkc6157-42-67 05:45:01EXAMINATION: CT ABDOMEN PELVIS WO CONTRAST HISTORY: [...] No high grade enterocolitis. No bowel obstruction.1D2RA D_PS02MethodiJordan Valley Medical CenterYfzqqpyqVVPH-KhF-7 (COVID-19) RNA [Presence] in Respiratory specimen by SOREN with probe nyzgkaetm4436-56-09 05:23:42 Test Item Value Reference Range Interpretation Comments SARS-CoV-2 (COVID-19) RNA Not detected Not-Detected [Presence] in Respiratory specimen by SOREN with probe detection (test code = 26567-2) [facility]ENTEN[facility]ALTransthoracic Echocardiogram Complete, (w Contrast, Strain and 3D if needed)2020-05-11 04:52:19 Test Item Value Reference Range Interpretation Comments Velocity Ratio (V1/V2) 0.85 m/s (test code = 4689) IVS,d (test code = 1.00 cm 9524575949) EF (test code = 52.31 % 2363666572) Ascending aorta (test 2.67 cm code = 8776379054) LVPWD,d (test code = 1.00 cm 5821694606) AoV Mean PG (test code mmHg = 6112379214) AV LVOT peak gradient mmHg (test code = 4882157250) MV mean gradient (test mmHg code = 4088031336) MV valve area p 1/2 3.31 cm2 method (test code = 4023861295) PV Pk Grad (test code = mmHg 2597992121) E/A ratio (test code = 0404696921) E wave decelartion time msec (test code = 8336881270) LVOT Diam,S (test code 1.98 cm = 2060106055) LVOT area (test code = 3.08 cm2 7564295283) LVOT Vmax (test code = 0.96 m/s 2328943452) LVOT VTI (test code = 0.21 m 3584837660) RVOT Vmax (test code = 0.58 m/s 5744980073) AoV Peak PG (test code mmHg = 6396388998) MV Peak E Giuliano (test 0.94 m/s code = 0715157422) MV stenosis pressure 66.39 ms 1/2 time (test code = 5092224082) MV Peak A Giuliano (test 0.74 m/s code = 7793579904) Ao Root Diameter (test 2.99 cm code = 0183665424) AoV Area, Vmax (test 2.60 cm2 code = 9046572515) AoV Area, VTI (test 2.95 cm2 code = 0510141982) AoV Vmax (test code = 1.13 m/s 2596443226) IVS/LVPW,2D (test code = 3278778175) Left Atrium Dimension 3.10 cm Anterior (test code = 4579868913) LV,d (test code = 4.15 cm 2240293295) LV,s (test code = 3.05 cm 2687310685) PV VMAX (test code = 0.78 m/s 0147241952) TR Vpeak (test code = 1.85 mm/s 2890023737) MV E A ratio (test code = 5059644897) TR pk grad (test code = mmHg 3612082357) MR peak grad (test code mmHg = 1181902925) Ao Root Diameter (test 2.99 cm code = 0979540407) LV SYS VOL (test code = 36.41 ml 2367360058) LV RIOS VOL (test code 76.34 ml = 0861986412) LV SV Teich 2D (test 39.93 ml code = 7030509649) LV Vol s Teich PSAX 36.41 ml (test code = 4019803252) MV Vmax (test code = 0.89 m 0749881956) MV VTI Tips (test code 0.22 m = 9344146850) RVOT pk grad (test code mmHg = 2090832626) AoV Vmn (test code = 5758202386) LV FS Cube 2D (test code = 6657826136) LV FS Teich 2D (test code = 6378995708) AoV VTI (test code = 0.22 m 7930453339) LA Area d A4C (test 12.41 cm2 code = 3305184589) LV EF,2D (test code = 60.32 % 9369848292) MR Vmax (test code = 4.15 m/s 1487148022) MV AE ratio (test code = 2577308385) LVOT Vmn (test code = 1388684835) Aov area Vmn (test code 2.47 cm2 = 8857851722) LA Vol d MOD A4C (test 27.63 ml code = 6679845170) LVOT mean grad (test mmHg code = 4197920254) MAX Pred HR (test code = 6925414580) 85 of MPHR (test code = 9844938324) Calc MPHR (test code = bpm 4486980430) LV SV Cube 2D (test 43.08 ml code = 8541201550) LV vol d cube 2D (test 71.42 ml code = 2939693698) LV vol s cube 2D (test 28.34 ml code = 5490856703) MV Decel slope (test 4.12 m/s2 code = 9342273613) Pred Exer Dur R1 (test code = 7435188177) Pred METS R1 (test code = 6801557376) CIRO (test code = CIRO) Left Ventricle: [...] regurgitation. No evidence of aortic valve stenosis. [facility] duplex venous upper uqpwmplqg7927-78-65 06:14:50 EXAMINATION: US DUPLEX VENOUS UPPER EXTREMITY [...] visualized veins of the right upper extremity. [facility]- [id number] [facility], Radiology Results - 05/08/2020 1:17 AM CDT [...] the visualized veins of the right upper extremity.[facility]-[id number] HospitalEEG (routine)2020-05-07 22:01:23Date of Service: May 07, [...] a diagnosis of epilepsy.MRI Brain W Wo Wabbfjqa4864-23-12 03:27:20EXAMINATION: MRI BRAIN W WO CONTRAST CLINICAL [...] with a perivenular morphology.1M2RAD_PS01[facility] (COVID-19) RNA [Presence] in Respiratory specimen by SOREN with probe xieyhzqhw3153-35-55 12:31:16 Test Item Value Reference Range Interpretation Comments SARS-CoV-2 (COVID-19) RNA Not detected Not-Detected [Presence] in Respiratory specimen by SOREN with probe detection (test code = 83598-6) [facility] SERVICES & REF LABS) 2020-02-22 21:37:00 Test Item Value Reference Range Interpretation Comments SARS-COV2/RT-PCR (test code = Positive Not Detected, Negative A A [id number]) SARS-COV-2 PERFORMING LAB CPL (test code = 0620914) CT, CHEST, WITHOUT [id number] 00:54:00Reason for exam:->cough, ?covidIs the patient ?->NoWhat [...] MDReport Verified Date/Time: 02/21/2020 00:54:38 PREGNANCY SCREEN, [id number] 00:28:00 Test Item Value Reference Range Interpretation Comments TEST URINE (BEAKER) (test Negative code = 583) CBC W/PLT COUNT & AUTO [id number] 22:46:00 Test Item Value Reference Range Interpretation [...] (BEAKER) (test code = 2801) LACTIC ACID, [id number] 22:30:00 Test Item Value Reference Range Interpretation Comments LACTATE BLOOD VENOUS 1.38 mmol/L 0.50-2.00 Specime n slightly (2) (BEAKER) (test hemolyzed code = 4432) [employer]riving School Instructor ID - JUSTINBASIC METABOLIC [id number] 22:10:00 Test Item Value Reference Range Interpretation [...] S NOT APPLICABLE FOR DIALYSIS PATIEN TS. Driving School Instructor ID - [id number] 22:09:00 Test Item Value Reference Range Interpretation [...] failure, acidosis, acute neurological disease, and persistent tachyarrhythmia.Driving School Instructor ID - [id number], CHEST, 1 VIEW, NON [id number] 20:58:00Reason for exam:->coughIs the patient ?- >NoShould [...] Asencio MDReport Verified Date/Time: 02/20/2020 20:58:56 SARS-COV2/RT-PCR ([facility])2020-02-06 03:25:00 Test Item Value Reference Range Interpretation Comments SARS-COV2/RT-PCR (test code = Positive Not Detected, Negative A A [id number]) SARS-COV-2 PERFORMING LAB CPL (test code = 6990003) URINALYSIS W/ [id number] 08:24:00 Test Item Value Reference Range Interpretation [...] 1663) SOURCE(BEAKER) (test code = 2795) SCREEN, [id number] 08:00:00 Test Item Value Reference Range Interpretation Comments TEST URINE (BEAKER) (test Negative code = 583) RAD, ABDOMEN/KUB 1 VIEW [id number] 07:21:00Reason for exam:->FEVERReason for exam:->DIARRHEAReason for exam:->EMESISFINAL REPORT RAD, ABDOMEN/KUB 1 VIEW AP CLINICAL INDICATION: FEVERDIARRHEAEMESIS COMPARISON: None TECHNIQUE: Single, frontal radiograph of the abdomen. FINDINGS: The bowel gas pattern is nonspecific, but nonobstructive. IUD is present. The regional skeleton is intact. IMPRESSION: Nonspecific, nonobstructive bowel gas pattern. Signed: Ling Jin MDReport Verified Date/Time: 02/04/2020 07:21:42 Reading Location: [facility] Radiology Reading Room COMPREHENSIVE METABOLIC [id number] 07:14:00 Test Item Value Reference Range Interpretation [...] S NOT APPLICABLE FOR DIALYSIS PATIEN TS. Driving School Instructor ID - [id number] 06:59:00 Test Item Value Reference Range Interpretation Comments LIPASE (BEAKER) (test code = 749) 9 U/L 6-51 Driving School Instructor ID - [id number] W/PLT COUNT & AUTO [id number] 06:41:00 Test Item Value Reference Range Interpretation [...] (test code = 2801) RAPID INFLUENZA A&B [id number] 19:09:00 Test Item Value Reference Range Interpretation Comments RAPID INFLUENZA A AG (BEAKER) Negative Negative, Inconclusive (test code = 1622) RAPID INFLUENZA B AG (BEAKER) Negative Negative, Inconclusive (test code = 1623) TROPONIN [id number] 18:51:00 Test Item Value Reference Range Interpretation [...] failure, acidosis, acute neurological disease, and persistent tachyarrhythmia.Driving School Instructor ID - JUSTINPREGNANCY SCREEN, [id number] 18:49:00 Test Item Value Reference Range Interpretation Comments TEST URINE (BEAKER) (test Negative code = 583) URINALYSIS W/ [id number] 18:49:00 Test Item Value Reference Range Interpretation [...] SOURCE(BEAKER) (test code = 2795) BASIC METABOLIC [id number] 18:44:00 Test Item Value Reference Range Interpretation [...] S NOT APPLICABLE FOR DIALYSIS PATIEN TS. Driving School Instructor ID - GORDON, CHEST, 1 VIEW, NON [id number] 18:41:00Reason for exam:->COUGHReason for exam:->SHORTNESS OF BREATHReason [...] on10/12/2019 06:41 PMCBC W/PLT COUNT & AUTO [id number] 18:29:00 Test Item Value Reference Range Interpretation [...] PERCENT (BEAKER) (test code = 2801) CT, [id number] 16:47:00Reason for exam:->FEVERReason for exam:->LEG PAINIs the [...] MDReport Verified Date/Time: 02/15/2019 16:47:32 Reading Location: [address] Transitional Reading Room URINALYSIS W/ [id number] 15:41:00 Test Item Value Reference Range Interpretation [...] code = 1663) SOURCE(BEAKER) (test code = 1835) SCREEN, [id number] 15:29:00 Test Item Value Reference Range Interpretation Comments TEST URINE (BEAKER) (test Negative code = 583) COMPREHENSIVE METABOLIC [id number] 15:26:00 Test Item Value Reference Range Interpretation [...] S NOT APPLICABLE FOR DIALYSIS PATIEN TS. [id number] 15:26:00 Test Item Value Reference Range Interpretation Comments LIPASE (BEAKER) (test code = 749) 20 U/L 6-51 [id number] 15:17:00 Test Item Value Reference Range Interpretation Comments AMYLASE (BEAKER) (test 42 U/L 30-110 Speci men slightly code = 349) hemolyzed CBC W/PLT COUNT & AUTO [id number] 15:03:00 Test Item Value Reference Range Interpretation [...] = 2801) RAD, KNEE, COMPLETE (4 VIEWS), [id number] 23:20:00Reason for exam:->MOTOR VEHICLE CRASHReason for exam:->HIP [...] MDReport Verified Date/Time: 11/19/2018 23:20:49 Reading Location: [facility] C013Y CT Body Reading Room RAD, KNEE, COMPLETE (4 VIEWS), [id number] 23:20:00Reason for exam:- >MOTOR VEHICLE CRASHReason for [...] Friedmaneport Verified Date/Time: 11/19/2018 23:20:49 Reading Location: [place] [id number] CT Body Reading Room RAD, HIP, 2 VIEWS, [id number] 23:06:00Reason for exam:->MOTOR VEHICLE CRASHReason for exam:->HIP PAINReason for exam:->ARM INJURYReason for exam:->SHOULDER INJURYFINAL REPORT Right hip series, 2 views Clinical Indication: Right Hip Pain Impression: No evidence of acute fracture or traumatic malalignment. Note: If occult injury is suspected,consider CT. Signed: Brian Garibay Verified Date/Time: 11/19/2018 23:06:27 Reading Location:[address] Reading Room CT, [id number] 22:44:00Reason for exam:->MOTOR VEHICLE CRASHReason for exam:->HIP [...] Alcantaraort Verified Date/Time: 11/19/2018 22:44:18 Reading Location: [address] Reading Room RAD, SHOULDER, COMPLETE (MIN 2 VIEWS), [id number] 22:41:00Reason for exam:->MOTOR VEHICLE CRASHReason for exam:->HIP PAINReason for exam:->ARM INJURYReason for exam:->SHOULDER INJURYFINAL REPORT Right shoulder series - 3 VIEWS Clinical Indication: Right shoulder pain following traumatic injury. Impression: No evidence of acute fracture or traumatic malalignment. Signed: Brian Garibay Verified Date/Time: 11/19/2018 22:41:16 Reading Location: [address] Reading Room URINALYSIS W/ [id number] 21:44:00 Test Item Value Reference Range Interpretation [...] 1663) SOURCE(BEAKER) (test code = 2795) SCREEN, [id number] 21:40:00 Test Item Value Reference Range Interpretation Comments TEST URINE (BEAKER) (test Negative code = 583) URINALYSIS W/ [id number] 21:41:00 Test Item Value Reference Range Interpretation [...] 1663) SOURCE(BEAKER) (test code = 2795) SCREEN, [id number] 21:37:00 Test Item Value Reference Range Interpretation Comments TEST URINE (BEAKER) (test Negative code = 583) RAPID INFLUENZA A&B [id number] 20:49:00 Test Item Value Reference Range Interpretation Comments RAPID INFLUENZA A AG (BEAKER) Negative Negative, Inconclusive (test code = 1622) RAPID INFLUENZA B AG (BEAKER) Negative Negative, Inconclusive (test code = 1623) CT, [id number] 08:31:00Reason for exam:->ABDOMINAL PAINReason for exam:->FEVERReason for [...] BONES AND SOFT TISSUES: Unremarkable. IMPRESSION:No acute abnormalitiesin the abdomen and pelvis. Signed: Magy Barker MDReport Verified Date/Time: 07/31/2017 08:31:14 Reading Location: [facility] Diagnostic Imaging Reading Room - [place] [id number] RAD, CHEST, 1 VIEW, NON [id number] 08:23:00Reason for exam:->ABDOMINAL PAINReason for exam:->FEVERReason for [...] MDReport Verified Date/Time: 07/31/2017 08:23:48 Reading Location: [address] Radiology Reading Room [id number] 08:07:00 Test Item Value Reference Range Interpretation Comments LIPASE (BEAKER) (test code = 749) 34 U/L 6-51 URINALYSIS W/ REFLEX URINE [id number] 08:06:00 Test Item Value Reference Range Interpretation [...] code = 1663) SOURCE(BEAKER) (test code = 7945) COMPREHENSIVE METABOLIC [id number] 08:06:00 Test Item Value Reference Range Interpretation [...] S NOT APPLICABLE FOR DIALYSIS PATIEN TS. [id number] 07:58:00 Test Item Value Reference Range Interpretation Comments AMYLASE (BEAKER) (test code = 349) 52 U/L 30-110 SCREEN, [id number] 07:52:00 Test Item Value Reference Range Interpretation Comments TEST URINE (BEAKER) (test Negative code = 583) CBC W/PLT COUNT & AUTO [id number] 07:48:00 Test Item Value Reference Range Interpretation [...] 0.00-0.20 (test code = 417) BASIC METABOLIC [id number] 21:32:00 Test Item Value Reference Range Interpretation [...] DIALYSIS PATIEN TS. LACTIC ACID, VENOUS, WHOLE [id number] 21:19:00 Test Item Value Reference Range Interpretation Comments LACTATE BLOOD VENOUS 0.9 mmol/L 0.5-2.2 Specime n slightly (2) (BEAKER) (test hemolyzed code = 2872) Effective 12/15/2015: Units/Reference Range ChangeNew: 0.5-2.2 mmol/L Previous: 5- 18 mg/dLCBC W/PLT COUNT & AUTO [id number] 21:07:00 Test Item Value Reference Range Interpretation [...] L 0.00-0.20 (test code = 417) SCREEN, [id number] 18:50:00 Test Item Value Reference Range Interpretation Comments TEST URINE (BEAKER) (test Negative code = 583) URINE [id number] 09:20:00 Test Item Value Reference Range Interpretation [...] = 480) CBC W/PLT COUNT & AUTO [id number] 16:52:00 Test Item Value Reference Range Interpretation [...] 0.00-0.20 (test code = 417) COMPREHENSIVE METABOLIC [id number] 16:28:00 Test Item Value Reference Range Interpretation [...] S NOT APPLICABLE FOR DIALYSIS PATIEN TS. [id number] 16:22:00 Test Item Value Reference Range Interpretation Comments LIPASE (BEAKER) (test code = 749) 26 U/L 6-51 URINALYSIS W/ REFLEX URINE [id number] 15:52:00 Test Item Value Reference Range Interpretation [...] 1663) SOURCE(BEAKER) (test code = 2795) SCREEN, [id number] 15:49:00 Test Item Value Reference Range Interpretation Comments TEST URINE (BEAKER) (test Negative code = 583) URINE AND [id number] 08:40:00 Test Item Value Reference Range Interpretation Comments UA Leuk Est (test code Trace *ABN*(02/13/16 3:40 = UA Leuk Est) AM) [facility] AND [id number] 08:40:00 Test Item Value Reference Range Interpretation Comments UA Nitrite (test code Negative (02/13/16 3:40 = UA Nitrite) AM) [facility] AND [id number] 08:40:00 Test Item Value Reference Range Interpretation Comments UA Urobilinogen (test code = UA 0.2 0.1-1.0 Urobilinogen) [facility] AND [id number] 08:40:00 Test Item Value Reference Range Interpretation Comments UA Ketones (test code Negative *NA*(02/13/16 = UA Ketones) 3:40 AM) [facility] AND [id number] 08:40:00 Test Item Value Reference Range Interpretation Comments UA Glucose (test code Negative (02/13/16 3:40 = UA Glucose) AM) [facility] AND [id number] 08:40:00 Test Item Value Reference Range Interpretation Comments UA Blood (test code = Large *ABN*(02/13/16 UA Blood) 3:40 AM) [facility] AND [id number] 08:40:00 Test Item Value Reference Range Interpretation Comments UA Bili (test code = Negative *NA*(02/13/16 UA Bili) 3:40 AM) [facility] AND [id number] 08:40:00 Test Item Value Reference Range Interpretation Comments UA Protein (test code = UA Protein) 30 mg/dL [facility] AND [id number] 08:40:00 Test Item Value Reference Range Interpretation Comments UA Spec Grav (test code = UA Spec 1.015 1 Grav) [facility] AND [id number] 08:40:00 Test Item Value Reference Range Interpretation Comments UA pH (test code = UA pH) 7.0 1 5.0-8.0 [facility] AND [id number] 08:40:00 Test Item Value Reference Range Interpretation Comments UA Color (test code = Red *ABN*(02/13/16 3:40 UA Color) AM) [facility] AND [id number] 08:40:00 Test Item Value Reference Range Interpretation Comments UA Turbidity (test code Bloody *ABN*(02/13/16 = UA Turbidity) 3:40 AM) [facility] AND [id number] 08:40:00 Test Item Value Reference Range Interpretation Comments UA Bacteria (test code = UA Occasional /HPF Bacteria) [facility] AND [id number] 08:40:00 Test Item Value Reference Range Interpretation Comments UA RBC (test Packed See_Comment [Automated mes shirley] code = UA RBC) *ABN*(02/13/16 3:40 The syst em which AM) generated this result transmitted ref erence range: <=2. The reference range was not used to int erpret this result as normal/abnormal . [facility] AND [id number] 08:40:00 Test Item Value Reference Range Interpretation Comments UA WBC (test code = UA WBC) 3-5 /HPF [facility] AND [id number] 08:40:00 Test Item Value Reference Range Interpretation Comments UA Sq Epi (test code = UA Sq Epi) Rare /LPF [facility] [id number] 08:40:00 Test Item Value Reference Range Interpretation Comments UA Leuk Est (test code Trace *ABN*(02/13/16 3:40 = UA Leuk Est) AM) [facility] AND [id number] 08:40:00 Test Item Value Reference Range Interpretation Comments UA Nitrite (test code Negative (02/13/16 3:40 = UA Nitrite) AM) [facility] AND [id number] 08:40:00 Test Item Value Reference Range Interpretation Comments UA Urobilinogen (test code = UA 0.2 0.1-1.0 Urobilinogen) [facility] AND [id number] 08:40:00 Test Item Value Reference Range Interpretation Comments UA Ketones (test code Negative *NA*(02/13/16 = UA Ketones) 3:40 AM) [facility] AND [id number] 08:40:00 Test Item Value Reference Range Interpretation Comments UA Glucose (test code Negative (02/13/16 3:40 = UA Glucose) AM) [facility] AND [id number] 08:40:00 Test Item Value Reference Range Interpretation Comments UA Blood (test code = Large *ABN*(02/13/16 UA Blood) 3:40 AM) [facility] [id number] 08:40:00 Test Item Value Reference Range Interpretation Comments UA Bili (test code = Negative *NA*(02/13/16 UA Bili) 3:40 AM) [facility] AND [id number] 08:40:00 Test Item Value Reference Range Interpretation Comments UA Protein (test code = UA Protein) 30 mg/dL [facility] AND [id number] 08:40:00 Test Item Value Reference Range Interpretation Comments UA Spec Grav (test code = UA Spec 1.015 1 Grav) [facility] AND [id number] 08:40:00 Test Item Value Reference Range Interpretation Comments UA pH (test code = UA pH) 7.0 1 5.0-8.0 [facility] [id number] 08:40:00 Test Item Value Reference Range Interpretation Comments UA Color (test code = Red *ABN*(02/13/16 3:40 UA Color) AM) [facility] AND [id number] 08:40:00 Test Item Value Reference Range Interpretation Comments UA Turbidity (test code Bloody *ABN*(02/13/16 = UA Turbidity) 3:40 AM) [facility] AND [id number] 08:40:00 Test Item Value Reference Range Interpretation Comments UA Bacteria (test code = UA Occasional /HPF Bacteria) [facility] AND [id number] 08:40:00 Test Item Value Reference Range Interpretation Comments UA RBC (test Packed See_Comment [Automated mes shirley] code = UA RBC) *ABN*(02/13/16 3:40 The syst em which AM) generated this result transmitted ref erence range: <=2. The reference range was not used to int erpret this result as normal/abnormal . [facility] AND [id number] 08:40:00 Test Item Value Reference Range Interpretation Comments UA WBC (test code = UA WBC) 3-5 /HPF [facility] AND [id number] 08:40:00 Test Item Value Reference Range Interpretation Comments UA Sq Epi (test code = UA Sq Epi) Rare /LPF [facility] AND [id number] 08:40:00 Test Item Value Reference Range Interpretation Comments UA Leuk Est (test code Trace *ABN*(02/13/16 3:40 = UA Leuk Est) AM) [facility] AND [id number] 08:40:00 Test Item Value Reference Range Interpretation Comments UA Nitrite (test code Negative (02/13/16 3:40 = UA Nitrite) AM) [facility] AND [id number] 08:40:00 Test Item Value Reference Range Interpretation Comments UA Urobilinogen (test code = UA 0.2 0.1-1.0 Urobilinogen) [facility] AND [id number] 08:40:00 Test Item Value Reference Range Interpretation Comments UA Ketones (test code Negative *NA*(02/13/16 = UA Ketones) 3:40 AM) [facility] AND [id number] 08:40:00 Test Item Value Reference Range Interpretation Comments UA Glucose (test code Negative (02/13/16 3:40 = UA Glucose) AM) [facility] AND [id number] 08:40:00 Test Item Value Reference Range Interpretation Comments UA Blood (test code = Large *ABN*(02/13/16 UA Blood) 3:40 AM) [facility] AND [id number] 08:40:00 Test Item Value Reference Range Interpretation Comments UA Bili (test code = Negative *NA*(02/13/16 UA Bili) 3:40 AM) [facility] AND [id number] 08:40:00 Test Item Value Reference Range Interpretation Comments UA Protein (test code = UA Protein) 30 mg/dL [facility] AND [id number] 08:40:00 Test Item Value Reference Range Interpretation Comments UA Spec Grav (test code = UA Spec 1.015 1 Grav) [facility] AND [id number] 08:40:00 Test Item Value Reference Range Interpretation Comments UA pH (test code = UA pH) 7.0 1 5.0-8.0 [facility] [id number] 08:40:00 Test Item Value Reference Range Interpretation Comments UA Color (test code = Red *ABN*(02/13/16 3:40 UA Color) AM) [facility] AND [id number] 08:40:00 Test Item Value Reference Range Interpretation Comments UA Turbidity (test code Bloody *ABN*(02/13/16 = UA Turbidity) 3:40 AM) [facility] [id number] 08:40:00 Test Item Value Reference Range Interpretation Comments UA Bacteria (test code = UA Occasional /HPF Bacteria) [facility] AND [id number] 08:40:00 Test Item Value Reference Range Interpretation Comments UA RBC (test Packed See_Comment [Automated mes shirley] code = UA RBC) *ABN*(02/13/16 3:40 The syst em which AM) generated this result transmitted ref erence range: <=2. The reference range was not used to int erpret this result as normal/abnormal . [facility] [id number] 08:40:00 Test Item Value Reference Range Interpretation Comments UA WBC (test code = UA WBC) 3-5 /HPF [facility] AND [id number] 08:40:00 Test Item Value Reference Range Interpretation Comments UA Sq Epi (test code = UA Sq Epi) Rare /LPF [facility] AND [id number] 08:40:00 Test Item Value Reference Range Interpretation Comments UA Leuk Est (test code Trace *ABN*(02/13/16 3:40 = UA Leuk Est) AM) [facility] AND [id number] 08:40:00 Test Item Value Reference Range Interpretation Comments UA Nitrite (test code Negative (02/13/16 3:40 = UA Nitrite) AM) [facility] AND [id number] 08:40:00 Test Item Value Reference Range Interpretation Comments UA Urobilinogen (test code = UA 0.2 0.1-1.0 Urobilinogen) [facility] AND [id number] 08:40:00 Test Item Value Reference Range Interpretation Comments UA Ketones (test code Negative *NA*(02/13/16 = UA Ketones) 3:40 AM) [facility] AND [id number] 08:40:00 Test Item Value Reference Range Interpretation Comments UA Glucose (test code Negative (02/13/16 3:40 = UA Glucose) AM) [facility] AND [id number] 08:40:00 Test Item Value Reference Range Interpretation Comments UA Blood (test code = Large *ABN*(02/13/16 UA Blood) 3:40 AM) [facility] AND [id number] 08:40:00 Test Item Value Reference Range Interpretation Comments UA Bili (test code = Negative *NA*(02/13/16 UA Bili) 3:40 AM) [facility] [id number] 08:40:00 Test Item Value Reference Range Interpretation Comments UA Protein (test code = UA Protein) 30 mg/dL [facility] AND [id number] 08:40:00 Test Item Value Reference Range Interpretation Comments UA Spec Grav (test code = UA Spec 1.015 1 Grav) [facility] AND [id number] 08:40:00 Test Item Value Reference Range Interpretation Comments UA pH (test code = UA pH) 7.0 1 5.0-8.0 [facility] [id number] 08:40:00 Test Item Value Reference Range Interpretation Comments UA Color (test code = Red *ABN*(02/13/16 3:40 UA Color) AM) [facility] AND [id number] 08:40:00 Test Item Value Reference Range Interpretation Comments UA Turbidity (test code Bloody *ABN*(02/13/16 = UA Turbidity) 3:40 AM) [facility] [id number] 08:40:00 Test Item Value Reference Range Interpretation Comments UA Bacteria (test code = UA Occasional /HPF Bacteria) [facility] AND [id number] 08:40:00 Test Item Value Reference Range Interpretation Comments UA RBC (test Packed See_Comment [Automated mes shirley] code = UA RBC) *ABN*(02/13/16 3:40 The syst em which AM) generated this result transmitted ref erence range: <=2. The reference range was not used to int erpret this result as normal/abnormal . [facility] AND [id number] 08:40:00 Test Item Value Reference Range Interpretation Comments UA WBC (test code = UA WBC) 3-5 /HPF [facility] AND [id number] 08:40:00 Test Item Value Reference Range Interpretation Comments UA Sq Epi (test code = UA Sq Epi) Rare /LPF [facility] AND [id number] 08:40:00 Test Item Value Reference Range Interpretation Comments UA Leuk Est (test code Trace *ABN*(02/13/16 3:40 = UA Leuk Est) AM) [facility] AND [id number] 08:40:00 Test Item Value Reference Range Interpretation Comments UA Nitrite (test code Negative (02/13/16 3:40 = UA Nitrite) AM) [facility] AND [id number] 08:40:00 Test Item Value Reference Range Interpretation Comments UA Urobilinogen (test code = UA 0.2 0.1-1.0 Urobilinogen) [facility] AND [id number] 08:40:00 Test Item Value Reference Range Interpretation Comments UA Ketones (test code Negative *NA*(02/13/16 = UA Ketones) 3:40 AM) [facility] AND [id number] 08:40:00 Test Item Value Reference Range Interpretation Comments UA Glucose (test code Negative (02/13/16 3:40 = UA Glucose) AM) [facility] AND [id number] 08:40:00 Test Item Value Reference Range Interpretation Comments UA Blood (test code = Large *ABN*(02/13/16 UA Blood) 3:40 AM) [facility] AND [id number] 08:40:00 Test Item Value Reference Range Interpretation Comments UA Bili (test code = Negative *NA*(02/13/16 UA Bili) 3:40 AM) [facility] AND [id number] 08:40:00 Test Item Value Reference Range Interpretation Comments UA Protein (test code = UA Protein) 30 mg/dL [facility] AND [id number] 08:40:00 Test Item Value Reference Range Interpretation Comments UA Spec Grav (test code = UA Spec 1.015 1 Grav) [facility] AND [id number] 08:40:00 Test Item Value Reference Range Interpretation Comments UA pH (test code = UA pH) 7.0 1 5.0-8.0 [facility] [id number] 08:40:00 Test Item Value Reference Range Interpretation Comments UA Color (test code = Red *ABN*(02/13/16 3:40 UA Color) AM) [facility] [id number] 08:40:00 Test Item Value Reference Range Interpretation Comments UA Turbidity (test code Bloody *ABN*(02/13/16 = UA Turbidity) 3:40 AM) [facility] [id number] 08:40:00 Test Item Value Reference Range Interpretation Comments UA Bacteria (test code = UA Occasional /HPF Bacteria) [facility] AND [id number] 08:40:00 Test Item Value Reference Range Interpretation Comments UA RBC (test Packed See_Comment [Automated mes shirley] code = UA RBC) *ABN*(02/13/16 3:40 The syst em which AM) generated this result transmitted ref erence range: <=2. The reference range was not used to int erpret this result as normal/abnormal . [facility] AND [id number] 08:40:00 Test Item Value Reference Range Interpretation Comments UA WBC (test code = UA WBC) 3-5 /HPF [facility] AND [id number] 08:40:00 Test Item Value Reference Range Interpretation Comments UA Sq Epi (test code = UA Sq Epi) Rare /LPF [facility] [id number] 08:40:00 Test Item Value Reference Range Interpretation Comments UA Leuk Est (test code Trace *ABN*(02/13/16 3:40 = UA Leuk Est) AM) [facility] [id number] 08:40:00 Test Item Value Reference Range Interpretation Comments UA Nitrite (test code Negative (02/13/16 3:40 = UA Nitrite) AM) [facility] AND [id number] 08:40:00 Test Item Value Reference Range Interpretation Comments UA Urobilinogen (test code = UA 0.2 0.1-1.0 Urobilinogen) [facility] AND [id number] 08:40:00 Test Item Value Reference Range Interpretation Comments UA Ketones (test code Negative *NA*(02/13/16 = UA Ketones) 3:40 AM) [facility] AND [id number] 08:40:00 Test Item Value Reference Range Interpretation Comments UA Glucose (test code Negative (02/13/16 3:40 = UA Glucose) AM) [facility] AND [id number] 08:40:00 Test Item Value Reference Range Interpretation Comments UA Blood (test code = Large *ABN*(02/13/16 UA Blood) 3:40 AM) [facility] AND [id number] 08:40:00 Test Item Value Reference Range Interpretation Comments UA Bili (test code = Negative *NA*(02/13/16 UA Bili) 3:40 AM) [facility] [id number] 08:40:00 Test Item Value Reference Range Interpretation Comments UA Protein (test code = UA Protein) 30 mg/dL [facility] AND [id number] 08:40:00 Test Item Value Reference Range Interpretation Comments UA Spec Grav (test code = UA Spec 1.015 1 Grav) [facility] AND [id number] 08:40:00 Test Item Value Reference Range Interpretation Comments UA pH (test code = UA pH) 7.0 1 5.0-8.0 [facility] AND [id number] 08:40:00 Test Item Value Reference Range Interpretation Comments UA Color (test code = Red *ABN*(02/13/16 3:40 UA Color) AM) [facility] AND [id number] 08:40:00 Test Item Value Reference Range Interpretation Comments UA Turbidity (test code Bloody *ABN*(02/13/16 = UA Turbidity) 3:40 AM) [facility] AND [id number] 08:40:00 Test Item Value Reference Range Interpretation Comments UA Bacteria (test code = UA Occasional /HPF Bacteria) [facility] AND [id number] 08:40:00 Test Item Value Reference Range Interpretation Comments UA RBC (test Packed See_Comment [Automated mes shirley] code = UA RBC) *ABN*(02/13/16 3:40 The syst em which AM) generated this result transmitted ref erence range: <=2. The reference range was not used to int erpret this result as normal/abnormal . [facility] AND [id number] 08:40:00 Test Item Value Reference Range Interpretation Comments UA WBC (test code = UA WBC) 3-5 /HPF [facility] AND [id number] 08:40:00 Test Item Value Reference Range Interpretation Comments UA Sq Epi (test code = UA Sq Epi) Rare /LPF [facility] AND [id number] 08:40:00 Test Item Value Reference Range Interpretation Comments UA Leuk Est (test code Trace *ABN*(02/13/16 3:40 = UA Leuk Est) AM) [facility] AND [id number] 08:40:00 Test Item Value Reference Range Interpretation Comments UA Nitrite (test code Negative (02/13/16 3:40 = UA Nitrite) AM) [facility] AND [id number] 08:40:00 Test Item Value Reference Range Interpretation Comments UA Urobilinogen (test code = UA 0.2 0.1-1.0 Urobilinogen) [facility] AND [id number] 08:40:00 Test Item Value Reference Range Interpretation Comments UA Ketones (test code Negative *NA*(02/13/16 = UA Ketones) 3:40 AM) [facility] AND [id number] 08:40:00 Test Item Value Reference Range Interpretation Comments UA Glucose (test code Negative (02/13/16 3:40 = UA Glucose) AM) [facility] AND [id number] 08:40:00 Test Item Value Reference Range Interpretation Comments UA Blood (test code = Large *ABN*(02/13/16 UA Blood) 3:40 AM) [facility] AND [id number] 08:40:00 Test Item Value Reference Range Interpretation Comments UA Bili (test code = Negative *NA*(02/13/16 UA Bili) 3:40 AM) [facility] AND [id number] 08:40:00 Test Item Value Reference Range Interpretation Comments UA Protein (test code = UA Protein) 30 mg/dL [facility] AND [id number] 08:40:00 Test Item Value Reference Range Interpretation Comments UA Spec Grav (test code = UA Spec 1.015 1 Grav) [facility] AND [id number] 08:40:00 Test Item Value Reference Range Interpretation Comments UA pH (test code = UA pH) 7.0 1 5.0-8.0 [facility] [id number] 08:40:00 Test Item Value Reference Range Interpretation Comments UA Color (test code = Red *ABN*(02/13/16 3:40 UA Color) AM) [facility] AND [id number] 08:40:00 Test Item Value Reference Range Interpretation Comments UA Turbidity (test code Bloody *ABN*(02/13/16 = UA Turbidity) 3:40 AM) [facility] AND [id number] 08:40:00 Test Item Value Reference Range Interpretation Comments UA Bacteria (test code = UA Occasional /HPF Bacteria) [facility] AND [id number] 08:40:00 Test Item Value Reference Range Interpretation Comments UA RBC (test Packed See_Comment [Automated mes shirley] code = UA RBC) *ABN*(02/13/16 3:40 The syst em which AM) generated this result transmitted ref erence range: <=2. The reference range was not used to int erpret this result as normal/abnormal . [facility] [id number] 08:40:00 Test Item Value Reference Range Interpretation Comments UA WBC (test code = UA WBC) 3-5 /HPF [facility] AND [id number] 08:40:00 Test Item Value Reference Range Interpretation Comments UA Sq Epi (test code = UA Sq Epi) Rare /LPF [facility] AND [id number] 08:40:00 Test Item Value Reference Range Interpretation Comments UA Leuk Est (test code Trace *ABN*(02/13/16 3:40 = UA Leuk Est) AM) [facility] AND [id number] 08:40:00 Test Item Value Reference Range Interpretation Comments UA Nitrite (test code Negative (02/13/16 3:40 = UA Nitrite) AM) [facility] AND [id number] 08:40:00 Test Item Value Reference Range Interpretation Comments UA Urobilinogen (test code = UA 0.2 0.1-1.0 Urobilinogen) [facility] AND [id number] 08:40:00 Test Item Value Reference Range Interpretation Comments UA Ketones (test code Negative *NA*(02/13/16 = UA Ketones) 3:40 AM) [facility] AND [id number] 08:40:00 Test Item Value Reference Range Interpretation Comments UA Glucose (test code Negative (02/13/16 3:40 = UA Glucose) AM) [facility] AND [id number] 08:40:00 Test Item Value Reference Range Interpretation Comments UA Blood (test code = Large *ABN*(02/13/16 UA Blood) 3:40 AM) [facility] AND [id number] 08:40:00 Test Item Value Reference Range Interpretation Comments UA Bili (test code = Negative *NA*(02/13/16 UA Bili) 3:40 AM) [facility] [id number] 08:40:00 Test Item Value Reference Range Interpretation Comments UA Protein (test code = UA Protein) 30 mg/dL [facility] AND [id number] 08:40:00 Test Item Value Reference Range Interpretation Comments UA Spec Grav (test code = UA Spec 1.015 1 Grav) [facility] AND [id number] 08:40:00 Test Item Value Reference Range Interpretation Comments UA pH (test code = UA pH) 7.0 1 5.0-8.0 [facility] AND [id number] 08:40:00 Test Item Value Reference Range Interpretation Comments UA Color (test code = Red *ABN*(02/13/16 3:40 UA Color) AM) [facility] AND [id number] 08:40:00 Test Item Value Reference Range Interpretation Comments UA Turbidity (test code Bloody *ABN*(02/13/16 = UA Turbidity) 3:40 AM) [facility] AND [id number] 08:40:00 Test Item Value Reference Range Interpretation Comments UA Bacteria (test code = UA Occasional /HPF Bacteria) [facility] AND [id number] 08:40:00 Test Item Value Reference Range Interpretation Comments UA RBC (test Packed See_Comment [Automated mes shirley] code = UA RBC) *ABN*(02/13/16 3:40 The syst em which AM) generated this result transmitted ref erence range: <=2. The reference range was not used to int erpret this result as normal/abnormal . [facility] AND [id number] 08:40:00 Test Item Value Reference Range Interpretation Comments UA WBC (test code = UA WBC) 3-5 /HPF [facility] AND [id number] 08:40:00 Test Item Value Reference Range Interpretation Comments UA Sq Epi (test code = UA Sq Epi) Rare /LPF [facility] [id number] 08:40:00 Test Item Value Reference Range Interpretation Comments UA Leuk Est (test code Trace *ABN*(02/13/16 3:40 = UA Leuk Est) AM) [facility] AND [id number] 08:40:00 Test Item Value Reference Range Interpretation Comments UA Nitrite (test code Negative (02/13/16 3:40 = UA Nitrite) AM) [facility] AND [id number] 08:40:00 Test Item Value Reference Range Interpretation Comments UA Urobilinogen (test code = UA 0.2 0.1-1.0 Urobilinogen) [facility] AND [id number] 08:40:00 Test Item Value Reference Range Interpretation Comments UA Ketones (test code Negative *NA*(02/13/16 = UA Ketones) 3:40 AM) [facility] AND [id number] 08:40:00 Test Item Value Reference Range Interpretation Comments UA Glucose (test code Negative (02/13/16 3:40 = UA Glucose) AM) [facility] AND [id number] 08:40:00 Test Item Value Reference Range Interpretation Comments UA Blood (test code = Large *ABN*(02/13/16 UA Blood) 3:40 AM) [facility] AND [id number] 08:40:00 Test Item Value Reference Range Interpretation Comments UA Bili (test code = Negative *NA*(02/13/16 UA Bili) 3:40 AM) [facility] AND [id number] 08:40:00 Test Item Value Reference Range Interpretation Comments UA Protein (test code = UA Protein) 30 mg/dL [facility] AND [id number] 08:40:00 Test Item Value Reference Range Interpretation Comments UA Spec Grav (test code = UA Spec 1.015 1 Grav) [facility] AND [id number] 08:40:00 Test Item Value Reference Range Interpretation Comments UA pH (test code = UA pH) 7.0 1 5.0-8.0 [facility] AND [id number] 08:40:00 Test Item Value Reference Range Interpretation Comments UA Color (test code = Red *ABN*(02/13/16 3:40 UA Color) AM) [facility] AND [id number] 08:40:00 Test Item Value Reference Range Interpretation Comments UA Turbidity (test code Bloody *ABN*(02/13/16 = UA Turbidity) 3:40 AM) [facility] AND [id number] 08:40:00 Test Item Value Reference Range Interpretation Comments UA Bacteria (test code = UA Occasional /HPF Bacteria) [facility] AND [id number] 08:40:00 Test Item Value Reference Range Interpretation Comments UA RBC (test Packed See_Comment [Automated mes shirley] code = UA RBC) *ABN*(02/13/16 3:40 The syst em which AM) generated this result transmitted ref erence range: <=2. The reference range was not used to int erpret this result as normal/abnormal . [facility] AND [id number] 08:40:00 Test Item Value Reference Range Interpretation Comments UA WBC (test code = UA WBC) 3-5 /HPF [facility] AND [id number] 08:40:00 Test Item Value Reference Range Interpretation Comments UA Sq Epi (test code = UA Sq Epi) Rare /LPF [facility] AND [id number] 08:40:00 Test Item Value Reference Range Interpretation Comments UA Leuk Est (test code Trace *ABN*(02/13/16 3:40 = UA Leuk Est) AM) [facility] AND [id number] 08:40:00 Test Item Value Reference Range Interpretation Comments UA Nitrite (test code Negative (02/13/16 3:40 = UA Nitrite) AM) [facility] AND [id number] 08:40:00 Test Item Value Reference Range Interpretation Comments UA Urobilinogen (test code = UA 0.2 0.1-1.0 Urobilinogen) [facility] AND [id number] 08:40:00 Test Item Value Reference Range Interpretation Comments UA Ketones (test code Negative *NA*(02/13/16 = UA Ketones) 3:40 AM) [facility] AND [id number] 08:40:00 Test Item Value Reference Range Interpretation Comments UA Glucose (test code Negative (02/13/16 3:40 = UA Glucose) AM) [facility] AND [id number] 08:40:00 Test Item Value Reference Range Interpretation Comments UA Blood (test code = Large *ABN*(02/13/16 UA Blood) 3:40 AM) [facility] AND [id number] 08:40:00 Test Item Value Reference Range Interpretation Comments UA Bili (test code = Negative *NA*(02/13/16 UA Bili) 3:40 AM) [facility] AND [id number] 08:40:00 Test Item Value Reference Range Interpretation Comments UA Protein (test code = UA Protein) 30 mg/dL [facility] AND [id number] 08:40:00 Test Item Value Reference Range Interpretation Comments UA Spec Grav (test code = UA Spec 1.015 1 Grav) [facility] AND [id number] 08:40:00 Test Item Value Reference Range Interpretation Comments UA pH (test code = UA pH) 7.0 1 5.0-8.0 [facility] AND [id number] 08:40:00 Test Item Value Reference Range Interpretation Comments UA Color (test code = Red *ABN*(02/13/16 3:40 UA Color) AM) [facility] AND [id number] 08:40:00 Test Item Value Reference Range Interpretation Comments UA Turbidity (test code Bloody *ABN*(02/13/16 = UA Turbidity) 3:40 AM) [facility] AND [id number] 08:40:00 Test Item Value Reference Range Interpretation Comments UA Bacteria (test code = UA Occasional /HPF Bacteria) [facility] AND [id number] 08:40:00 Test Item Value Reference Range Interpretation Comments UA RBC (test Packed See_Comment [Automated mes shirley] code = UA RBC) *ABN*(02/13/16 3:40 The syst em which AM) generated this result transmitted ref erence range: <=2. The reference range was not used to int erpret this result as normal/abnormal . [facility] AND [id number] 08:40:00 Test Item Value Reference Range Interpretation Comments UA WBC (test code = UA WBC) 3-5 /HPF [facility] AND [id number] 08:40:00 Test Item Value Reference Range Interpretation Comments UA Sq Epi (test code = UA Sq Epi) Rare /LPF [facility] AND [id number] 08:40:00 Test Item Value Reference Range Interpretation Comments UA Leuk Est (test code Trace *ABN*(02/13/16 3:40 = UA Leuk Est) AM) [facility] AND [id number] 08:40:00 Test Item Value Reference Range Interpretation Comments UA Nitrite (test code Negative (02/13/16 3:40 = UA Nitrite) AM) [facility] AND [id number] 08:40:00 Test Item Value Reference Range Interpretation Comments UA Urobilinogen (test code = UA 0.2 0.1-1.0 Urobilinogen) [facility] AND [id number] 08:40:00 Test Item Value Reference Range Interpretation Comments UA Ketones (test code Negative *NA*(02/13/16 = UA Ketones) 3:40 AM) [facility] AND [id number] 08:40:00 Test Item Value Reference Range Interpretation Comments UA Glucose (test code Negative (02/13/16 3:40 = UA Glucose) AM) [facility] AND [id number] 08:40:00 Test Item Value Reference Range Interpretation Comments UA Blood (test code = Large *ABN*(02/13/16 UA Blood) 3:40 AM) [facility] AND [id number] 08:40:00 Test Item Value Reference Range Interpretation Comments UA Bili (test code = Negative *NA*(02/13/16 UA Bili) 3:40 AM) [facility] AND [id number] 08:40:00 Test Item Value Reference Range Interpretation Comments UA Protein (test code = UA Protein) 30 mg/dL [facility] AND [id number] 08:40:00 Test Item Value Reference Range Interpretation Comments UA Spec Grav (test code = UA Spec 1.015 1 Grav) [facility] AND [id number] 08:40:00 Test Item Value Reference Range Interpretation Comments UA pH (test code = UA pH) 7.0 1 5.0-8.0 [facility] [id number] 08:40:00 Test Item Value Reference Range Interpretation Comments UA Color (test code = Red *ABN*(02/13/16 3:40 UA Color) AM) [facility] [id number] 08:40:00 Test Item Value Reference Range Interpretation Comments UA Turbidity (test code Bloody *ABN*(02/13/16 = UA Turbidity) 3:40 AM) [facility] AND [id number] 08:40:00 Test Item Value Reference Range Interpretation Comments UA Bacteria (test code = UA Occasional /HPF Bacteria) [facility] [id number] 08:40:00 Test Item Value Reference Range Interpretation Comments UA RBC (test Packed See_Comment [Automated mes shirley] code = UA RBC) *ABN*(02/13/16 3:40 The syst em which AM) generated this result transmitted ref erence range: <=2. The reference range was not used to int erpret this result as normal/abnormal . [facility] AND [id number] 08:40:00 Test Item Value Reference Range Interpretation Comments UA WBC (test code = UA WBC) 3-5 /HPF [facility] AND [id number] 08:40:00 Test Item Value Reference Range Interpretation Comments UA Sq Epi (test code = UA Sq Epi) Rare /LPF [facility] [id number] 08:40:00 Test Item Value Reference Range Interpretation Comments UA Leuk Est (test code Trace *ABN*(02/13/16 3:40 = UA Leuk Est) AM) [facility] AND [id number] 08:40:00 Test Item Value Reference Range Interpretation Comments UA Nitrite (test code Negative (02/13/16 3:40 = UA Nitrite) AM) [facility] [id number] 08:40:00 Test Item Value Reference Range Interpretation Comments UA Urobilinogen (test code = UA 0.2 0.1-1.0 Urobilinogen) [facility] AND [id number] 08:40:00 Test Item Value Reference Range Interpretation Comments UA Ketones (test code Negative *NA*(02/13/16 = UA Ketones) 3:40 AM) [facility] [id number] 08:40:00 Test Item Value Reference Range Interpretation Comments UA Glucose (test code Negative (02/13/16 3:40 = UA Glucose) AM) [facility] [id number] 08:40:00 Test Item Value Reference Range Interpretation Comments UA Blood (test code = Large *ABN*(02/13/16 UA Blood) 3:40 AM) [facility] [id number] 08:40:00 Test Item Value Reference Range Interpretation Comments UA Bili (test code = Negative *NA*(02/13/16 UA Bili) 3:40 AM) [facility] [id number] 08:40:00 Test Item Value Reference Range Interpretation Comments UA Protein (test code = UA Protein) 30 mg/dL [facility] AND [id number] 08:40:00 Test Item Value Reference Range Interpretation Comments UA Spec Grav (test code = UA Spec 1.015 1 Grav) [facility] [id number] 08:40:00 Test Item Value Reference Range Interpretation Comments UA pH (test code = UA pH) 7.0 1 5.0-8.0 [facility] AND [id number] 08:40:00 Test Item Value Reference Range Interpretation Comments UA Color (test code = Red *ABN*(02/13/16 3:40 UA Color) AM) [facility] AND [id number] 08:40:00 Test Item Value Reference Range Interpretation Comments UA Turbidity (test code Bloody *ABN*(02/13/16 = UA Turbidity) 3:40 AM) [facility] [id number] 08:40:00 Test Item Value Reference Range Interpretation Comments UA Bacteria (test code = UA Occasional /HPF Bacteria) [facility] AND [id number] 08:40:00 Test Item Value Reference Range Interpretation Comments UA RBC (test Packed See_Comment [Automated mes shirley] code = UA RBC) *ABN*(02/13/16 3:40 The syst em which AM) generated this result transmitted ref erence range: <=2. The reference range was not used to int erpret this result as normal/abnormal . [facility] AND [id number] 08:40:00 Test Item Value Reference Range Interpretation Comments UA WBC (test code = UA WBC) 3-5 /HPF [facility] AND [id number] 08:40:00 Test Item Value Reference Range Interpretation Comments UA Sq Epi (test code = UA Sq Epi) Rare /LPF [facility] AND [id number] 08:40:00 Test Item Value Reference Range Interpretation Comments UA Leuk Est (test code Trace *ABN*(02/13/16 3:40 = UA Leuk Est) AM) [facility] [id number] 08:40:00 Test Item Value Reference Range Interpretation Comments UA Nitrite (test code Negative (02/13/16 3:40 = UA Nitrite) AM) [facility] AND [id number] 08:40:00 Test Item Value Reference Range Interpretation Comments UA Urobilinogen (test code = UA 0.2 0.1-1.0 Urobilinogen) [facility] AND [id number] 08:40:00 Test Item Value Reference Range Interpretation Comments UA Ketones (test code Negative *NA*(02/13/16 = UA Ketones) 3:40 AM) [facility] AND [id number] 08:40:00 Test Item Value Reference Range Interpretation Comments UA Glucose (test code Negative (02/13/16 3:40 = UA Glucose) AM) [facility] AND [id number] 08:40:00 Test Item Value Reference Range Interpretation Comments UA Blood (test code = Large *ABN*(02/13/16 UA Blood) 3:40 AM) [facility] [id number] 08:40:00 Test Item Value Reference Range Interpretation Comments UA Bili (test code = Negative *NA*(02/13/16 UA Bili) 3:40 AM) [facility] AND [id number] 08:40:00 Test Item Value Reference Range Interpretation Comments UA Protein (test code = UA Protein) 30 mg/dL [facility] AND [id number] 08:40:00 Test Item Value Reference Range Interpretation Comments UA Spec Grav (test code = UA Spec 1.015 1 Grav) [facility] [id number] 08:40:00 Test Item Value Reference Range Interpretation Comments UA pH (test code = UA pH) 7.0 1 5.0-8.0 [facility] AND [id number] 08:40:00 Test Item Value Reference Range Interpretation Comments UA Color (test code = Red *ABN*(02/13/16 3:40 UA Color) AM) [facility] AND [id number] 08:40:00 Test Item Value Reference Range Interpretation Comments UA Turbidity (test code Bloody *ABN*(02/13/16 = UA Turbidity) 3:40 AM) [facility] AND [id number] 08:40:00 Test Item Value Reference Range Interpretation Comments UA Bacteria (test code = UA Occasional /HPF Bacteria) [facility] AND [id number] 08:40:00 Test Item Value Reference Range Interpretation Comments UA RBC (test Packed See_Comment [Automated mes shirley] code = UA RBC) *ABN*(02/13/16 3:40 The syst em which AM) generated this result transmitted ref erence range: <=2. The reference range was not used to int erpret this result as normal/abnormal . [facility] AND [id number] 08:40:00 Test Item Value Reference Range Interpretation Comments UA WBC (test code = UA WBC) 3-5 /HPF [facility] AND [id number] 08:40:00 Test Item Value Reference Range Interpretation Comments UA Sq Epi (test code = UA Sq Epi) Rare /LPF [facility] AND [id number] 08:40:00 Test Item Value Reference Range Interpretation Comments UA Leuk Est (test code Trace *ABN*(02/13/16 3:40 = UA Leuk Est) AM) [facility] AND [id number] 08:40:00 Test Item Value Reference Range Interpretation Comments UA Nitrite (test code Negative (02/13/16 3:40 = UA Nitrite) AM) [facility] AND [id number] 08:40:00 Test Item Value Reference Range Interpretation Comments UA Urobilinogen (test code = UA 0.2 0.1-1.0 Urobilinogen) [facility] AND [id number] 08:40:00 Test Item Value Reference Range Interpretation Comments UA Ketones (test code Negative *NA*(02/13/16 = UA Ketones) 3:40 AM) [facility] AND [id number] 08:40:00 Test Item Value Reference Range Interpretation Comments UA Glucose (test code Negative (02/13/16 3:40 = UA Glucose) AM) [facility] AND [id number] 08:40:00 Test Item Value Reference Range Interpretation Comments UA Blood (test code = Large *ABN*(02/13/16 UA Blood) 3:40 AM) [facility] AND [id number] 08:40:00 Test Item Value Reference Range Interpretation Comments UA Bili (test code = Negative *NA*(02/13/16 UA Bili) 3:40 AM) [facility] AND [id number] 08:40:00 Test Item Value Reference Range Interpretation Comments UA Protein (test code = UA Protein) 30 mg/dL [facility] AND [id number] 08:40:00 Test Item Value Reference Range Interpretation Comments UA Spec Grav (test code = UA Spec 1.015 1 Grav) [facility] AND [id number] 08:40:00 Test Item Value Reference Range Interpretation Comments UA pH (test code = UA pH) 7.0 1 5.0-8.0 [facility] AND [id number] 08:40:00 Test Item Value Reference Range Interpretation Comments UA Color (test code = Red *ABN*(02/13/16 3:40 UA Color) AM) [facility] AND [id number] 08:40:00 Test Item Value Reference Range Interpretation Comments UA Turbidity (test code Bloody *ABN*(02/13/16 = UA Turbidity) 3:40 AM) [facility] AND [id number] 08:40:00 Test Item Value Reference Range Interpretation Comments UA Bacteria (test code = UA Occasional /HPF Bacteria) [facility] AND [id number] 08:40:00 Test Item Value Reference Range Interpretation Comments UA RBC (test Packed See_Comment [Automated mes shirley] code = UA RBC) *ABN*(02/13/16 3:40 The syst em which AM) generated this result transmitted ref erence range: <=2. The reference range was not used to int erpret this result as normal/abnormal . [facility] AND [id number] 08:40:00 Test Item Value Reference Range Interpretation Comments UA WBC (test code = UA WBC) 3-5 /HPF [facility] AND [id number] 08:40:00 Test Item Value Reference Range Interpretation Comments UA Sq Epi (test code = UA Sq Epi) Rare /LPF [facility] AND [id number] 08:40:00 Test Item Value Reference Range Interpretation Comments UA Leuk Est (test code Trace *ABN*(02/13/16 3:40 = UA Leuk Est) AM) [facility] AND [id number] 08:40:00 Test Item Value Reference Range Interpretation Comments UA Nitrite (test code Negative (02/13/16 3:40 = UA Nitrite) AM) [facility] AND [id number] 08:40:00 Test Item Value Reference Range Interpretation Comments UA Urobilinogen (test code = UA 0.2 0.1-1.0 Urobilinogen) [facility] AND [id number] 08:40:00 Test Item Value Reference Range Interpretation Comments UA Ketones (test code Negative *NA*(02/13/16 = UA Ketones) 3:40 AM) [facility] AND [id number] 08:40:00 Test Item Value Reference Range Interpretation Comments UA Glucose (test code Negative (02/13/16 3:40 = UA Glucose) AM) [facility] AND [id number] 08:40:00 Test Item Value Reference Range Interpretation Comments UA Blood (test code = Large *ABN*(02/13/16 UA Blood) 3:40 AM) [facility] AND [id number] 08:40:00 Test Item Value Reference Range Interpretation Comments UA Bili (test code = Negative *NA*(02/13/16 UA Bili) 3:40 AM) [facility] AND [id number] 08:40:00 Test Item Value Reference Range Interpretation Comments UA Protein (test code = UA Protein) 30 mg/dL [facility] AND [id number] 08:40:00 Test Item Value Reference Range Interpretation Comments UA Spec Grav (test code = UA Spec 1.015 1 Grav) [facility] AND [id number] 08:40:00 Test Item Value Reference Range Interpretation Comments UA pH (test code = UA pH) 7.0 1 5.0-8.0 [facility] AND [id number] 08:40:00 Test Item Value Reference Range Interpretation Comments UA Color (test code = Red *ABN*(02/13/16 3:40 UA Color) AM) [facility] AND [id number] 08:40:00 Test Item Value Reference Range Interpretation Comments UA Turbidity (test code Bloody *ABN*(02/13/16 = UA Turbidity) 3:40 AM) [facility] AND [id number] 08:40:00 Test Item Value Reference Range Interpretation Comments UA Bacteria (test code = UA Occasional /HPF Bacteria) [facility] AND [id number] 08:40:00 Test Item Value Reference Range Interpretation Comments UA RBC (test Packed See_Comment [Automated mes shirley] code = UA RBC) *ABN*(02/13/16 3:40 The syst em which AM) generated this result transmitted ref erence range: <=2. The reference range was not used to int erpret this result as normal/abnormal . [facility] AND [id number] 08:40:00 Test Item Value Reference Range Interpretation Comments UA WBC (test code = UA WBC) 3-5 /HPF [facility] AND [id number] 08:40:00 Test Item Value Reference Range Interpretation Comments UA Sq Epi (test code = UA Sq Epi) Rare /LPF [facility] AND [id number] 08:40:00 Test Item Value Reference Range Interpretation Comments UA Leuk Est (test code Trace *ABN*(02/13/16 3:40 = UA Leuk Est) AM) [facility] AND [id number] 08:40:00 Test Item Value Reference Range Interpretation Comments UA Nitrite (test code Negative (02/13/16 3:40 = UA Nitrite) AM) [facility] AND [id number] 08:40:00 Test Item Value Reference Range Interpretation Comments UA Urobilinogen (test code = UA 0.2 0.1-1.0 Urobilinogen) [facility] AND [id number] 08:40:00 Test Item Value Reference Range Interpretation Comments UA Ketones (test code Negative *NA*(02/13/16 = UA Ketones) 3:40 AM) [facility] AND [id number] 08:40:00 Test Item Value Reference Range Interpretation Comments UA Glucose (test code Negative (02/13/16 3:40 = UA Glucose) AM) [facility] AND [id number] 08:40:00 Test Item Value Reference Range Interpretation Comments UA Blood (test code = Large *ABN*(02/13/16 UA Blood) 3:40 AM) [facility] AND [id number] 08:40:00 Test Item Value Reference Range Interpretation Comments UA Bili (test code = Negative *NA*(02/13/16 UA Bili) 3:40 AM) [facility] AND [id number] 08:40:00 Test Item Value Reference Range Interpretation Comments UA Protein (test code = UA Protein) 30 mg/dL [facility] AND [id number] 08:40:00 Test Item Value Reference Range Interpretation Comments UA Spec Grav (test code = UA Spec 1.015 1 Grav) [facility] AND [id number] 08:40:00 Test Item Value Reference Range Interpretation Comments UA pH (test code = UA pH) 7.0 1 5.0-8.0 [facility] AND [id number] 08:40:00 Test Item Value Reference Range Interpretation Comments UA Color (test code = Red *ABN*(02/13/16 3:40 UA Color) AM) [facility] AND [id number] 08:40:00 Test Item Value Reference Range Interpretation Comments UA Turbidity (test code Bloody *ABN*(02/13/16 = UA Turbidity) 3:40 AM) [facility] AND [id number] 08:40:00 Test Item Value Reference Range Interpretation Comments UA Bacteria (test code = UA Occasional /HPF Bacteria) [facility] AND [id number] 08:40:00 Test Item Value Reference Range Interpretation Comments UA RBC (test Packed See_Comment [Automated mes shirley] code = UA RBC) *ABN*(02/13/16 3:40 The syst em which AM) generated this result transmitted ref erence range: <=2. The reference range was not used to int erpret this result as normal/abnormal . [facility] AND [id number] 08:40:00 Test Item Value Reference Range Interpretation Comments UA WBC (test code = UA WBC) 3-5 /HPF [facility] AND [id number] 08:40:00 Test Item Value Reference Range Interpretation Comments UA Sq Epi (test code = UA Sq Epi) Rare /LPF [facility] AND [id number] 08:40:00 Test Item Value Reference Range Interpretation Comments UA Leuk Est (test code Trace *ABN*(02/13/16 3:40 = UA Leuk Est) AM) [facility] AND [id number] 08:40:00 Test Item Value Reference Range Interpretation Comments UA Nitrite (test code Negative (02/13/16 3:40 = UA Nitrite) AM) [facility] AND [id number] 08:40:00 Test Item Value Reference Range Interpretation Comments UA Urobilinogen (test code = UA 0.2 0.1-1.0 Urobilinogen) [facility] AND [id number] 08:40:00 Test Item Value Reference Range Interpretation Comments UA Ketones (test code Negative *NA*(02/13/16 = UA Ketones) 3:40 AM) [facility] AND [id number] 08:40:00 Test Item Value Reference Range Interpretation Comments UA Glucose (test code Negative (02/13/16 3:40 = UA Glucose) AM) [facility] AND [id number] 08:40:00 Test Item Value Reference Range Interpretation Comments UA Blood (test code = Large *ABN*(02/13/16 UA Blood) 3:40 AM) [facility] AND [id number] 08:40:00 Test Item Value Reference Range Interpretation Comments UA Bili (test code = Negative *NA*(02/13/16 UA Bili) 3:40 AM) [facility] AND [id number] 08:40:00 Test Item Value Reference Range Interpretation Comments UA Protein (test code = UA Protein) 30 mg/dL [facility] AND [id number] 08:40:00 Test Item Value Reference Range Interpretation Comments UA Spec Grav (test code = UA Spec 1.015 1 Grav) [facility] AND [id number] 08:40:00 Test Item Value Reference Range Interpretation Comments UA pH (test code = UA pH) 7.0 1 5.0-8.0 [facility] AND [id number] 08:40:00 Test Item Value Reference Range Interpretation Comments UA Color (test code = Red *ABN*(02/13/16 3:40 UA Color) AM) [facility] [id number] 08:40:00 Test Item Value Reference Range Interpretation Comments UA Turbidity (test code Bloody *ABN*(02/13/16 = UA Turbidity) 3:40 AM) [facility] [id number] 08:40:00 Test Item Value Reference Range Interpretation Comments UA Bacteria (test code = UA Occasional /HPF Bacteria) [facility] [id number] 08:40:00 Test Item Value Reference Range Interpretation Comments UA RBC (test code = UA Packed *ABN*(02/13/16 <=2 RBC) 3:40 AM) [facility] [id number] 08:40:00 Test Item Value Reference Range Interpretation Comments UA WBC (test code = UA WBC) 3-5 /HPF [facility] [id number] 08:40:00 Test Item Value Reference Range Interpretation Comments UA Sq Epi (test code = UA Sq Epi) Rare /LPF [facility] [id number] 06:44:00 Test Item Value Reference Range Interpretation Comments Antibody Scrn (test Negative (02/13/16 1:44 code = Antibody Scrn) AM) [facility] [id number] 06:44:00 Test Item Value Reference Range Interpretation Comments ABO/Rh (test code = ABO/Rh) A POS [employer] [id number] 06:44:00 Test Item Value Reference Range Interpretation Comments CK MB Index (test 1.6 See_Comment [Automate d message] The code = CK MB Index) system w [facility] generated this result transmit gaye reference range : <=2.5. The reference range was not used to interpr et this result as satish l/abnormal. [employer] [id number] 06:44:00 Test Item Value Reference Range Interpretation Comments CK MB (test code = CK MB) 0.9 0.5-3.6 [employer] [id number] 06:44:00 Test Item Value Reference Range Interpretation Comments Total CK (test code = Total CK) 57 12-191 [facility] [employer] [id number] 06:44:00 Test Item Value Reference Range Interpretation Comments Troponin-I (test code no gt See_Comment [Auto mated message] The = Troponin-I) system which g enerated this result transmit gaye reference range : <=0.40. The reference r ozzy was not used to interpr et this result as satish l/abnormal. [facility]2016-07-03 06:44:00 Test Item Value Reference Range Interpretation Comments Albumin Lvl (test code = Albumin Lvl) 3.5 3.5-5.0 [facility]2016-07-03 06:44:00 Test Item Value Reference Range Interpretation Comments Total Protein (test code = Total 7.0 6.4-8.4 Protein) [facility]2016-07-03 06:44:00 Test Item Value Reference Range Interpretation Comments ALT (test code = ALT) 19 See_Comment [Auto mated message] The system which ge nerated this result transmit gaye reference range : <=65. The reference range was not used to interpr et this result as satish l/abnormal. [id number] 06:44:00 Test Item Value Reference Range Interpretation Comments AST (test code = AST) 10 See_Comment [Auto mated message] The system which ge nerated this result transmit gaye reference range : <=37. The reference range was not used to interpr et this result as satish l/abnormal. [facility]2016-07-03 06:44:00 Test Item Value Reference Range Interpretation Comments Alk Phos (test code = Alk Phos) 79 39-136 [facility]2016-07-03 06:44:00 Test Item Value Reference Range Interpretation Comments Bili Total (test code = Bili Total) 0.4 0.2-1.3 [facility]2016-07-03 06:44:00 Test Item Value Reference Range Interpretation Comments Bili Direct (test code 0.1 See_Comment [Aut omated message] The = Bili Direct) system which generated this result tra nsmitted reference range : <=0.3. The reference r ozzy was not used to int erpret this result as satish l/abnormal. [facility] [id number] 06:44:00 Test Item Value Reference Range Interpretation Comments Globulin (test code = Globulin) 3.5 2.0-4.0 [facility]2016-07-03 06:44:00 Test Item Value Reference Range Interpretation Comments A/G Ratio (test code = A/G Ratio) 1.0 0.7-1.6 [facility]2016-07-03 06:44:00 Test Item Value Reference Range Interpretation Comments Bili Indirect (test 0.3 See_Comment [Automa gaye message] The code = Bili Indirect) system which generated this result tra nsmitted reference range : <=1.0. The reference r ozzy was not used to int erpret this result as normal/abnormal . [facility]2016-07-03 06:44:00 Test Item Value Reference Range Interpretation Comments eGFR (test code = eGFR) 107 [facility]2016-07-03 06:44:00 Test Item Value Reference Range Interpretation Comments BUN (test code = BUN) 8 7-22 [facility]2016-07-03 06:44:00 Test Item Value Reference Range Interpretation Comments Glucose Lvl (test code = Glucose Lvl) 91 70-99 [facility]2016-07-03 06:44:00 Test Item Value Reference Range Interpretation Comments Sodium Lvl (test code = Sodium Lvl) 138 135-145 [facility]2016-07-03 06:44:00 Test Item Value Reference Range Interpretation Comments Creatinine Lvl (test code = Creatinine 0.70 0.50-1.40 Lvl) [facility]2016-07-03 06:44:00 Test Item Value Reference Range Interpretation Comments Potassium Lvl (test code = Potassium 3.3 3.5-5.1 Lvl) [facility]2016-07-03 06:44:00 Test Item Value Reference Range Interpretation Comments CO2 (test code = CO2) 25 24-32 [facility]2016-07-03 06:44:00 Test Item Value Reference Range Interpretation Comments Chloride Lvl (test code = Chloride Lvl) 106 95-109 [place] [id number] 06:44:00 Test Item Value Reference Range Interpretation Comments Calcium Lvl (test code = Calcium Lvl) 8.1 8.5-10.5 [facility]2016-07-03 06:44:00 Test Item Value Reference Range Interpretation Comments AGAP (test code = AGAP) 10.3 10.0-20.0 [facility]2016-07-03 06:44:00 Test Item Value Reference Range Interpretation Comments Magnesium Lvl (test code = Magnesium 2.2 1.8-2.4 Lvl) [id number] 06:44:00 Test Item Value Reference Range Interpretation Comments S Preg (test code = S Negative *NA*(02/13/16 Preg) 1:44 AM) [id number] 06:44:00 Test Item Value Reference Range Interpretation Comments Basophils (test code = 0.1 See_Comment [Aut omated message] The Basophils) system which ge nerated this result tra nsmitted reference range : <=1.0. The reference r ozzy was not used to int erpret this result as normal/abnormal . [id number] 06:44:00 Test Item Value Reference Range Interpretation Comments Monocytes # (test code 0.3 See_Comment [Aut omated message] The = Monocytes #) system which generated this result tra nsmitted reference range : <=0.8. The reference r ozzy was not used to int erpret this result as normal/abnormal . [facility] C[id number] 06:44:00 Test Item Value Reference Range Interpretation Comments Eosinophils # (test code 0.1 See_Comment [A utomated message] The = Eosinophils #) system whic h generated this result tra nsmitted reference range : <=0.5. The reference r ozzy was not used to int erpret this result as normal/abnormal . [facility] CenterAsfznxiTWYOSNNRGX8640-01-19 06:44:00 Test Item Value Reference Range Interpretation Comments Segs-Bands # (test code = Segs-Bands #) 9.3 1.5-8.1 [facility] [id number] 06:44:00 Test Item Value Reference Range Interpretation Comments Lymphocytes # (test code = Lymphocytes 2.6 1.0-5.5 #) [facility] C[id number] 06:44:00 Test Item Value Reference Range Interpretation Comments Basophils # (test code 0.0 See_Comment [Aut omated message] The = Basophils #) system which generated this result tra nsmitted reference range : <=0.2. The reference r ozzy was not used to int erpret this result as normal/abnormal . [facility] CenterIpjipatUTRERLWZFL5323-55-36 06:44:00 Test Item Value Reference Range Interpretation Comments Microcyte (test code = 1+ *ABN*(02/13/16 1:44 Microcyte) AM) [facility] C[id number] 06:44:00 Test Item Value Reference Range Interpretation Comments Giant Plt (test code Moderate *ABN*(02/13/16 = Giant Plt) 1:44 AM) [facility] C[id number] 06:44:00 Test Item Value Reference Range Interpretation Comments Segs (test code = Segs) 75.2 45.0-75.0 [facility] CenterRpncbdxTEFGLTYRAX1968-25-50 06:44:00 Test Item Value Reference Range Interpretation Comments Hypochrom (test code = 1+ (02/13/16 1:44 AM) Hypochrom) [facility] CenterHvobfsgPNCCMZWVBN8561-10-55 06:44:00 Test Item Value Reference Range Interpretation Comments Eosinophils (test code = 0.7 See_Comment [A utomated message] The Eosinophils) system which ge nerated this result tra nsmitted reference range : <=4.0. The reference r ozzy was not used to int erpret this result as normal/abnormal . [facility] CenterRwecxwmGEFEWEBYYD6926-62-60 06:44:00 Test Item Value Reference Range Interpretation Comments Lymphocytes (test code = Lymphocytes) 21.3 20.0-40.0 [facility] CenterEzhzxfhAVQEVYLYKI9361-95-12 06:44:00 Test Item Value Reference Range Interpretation Comments Monocytes (test code = Monocytes) 2.7 2.0-12.0 [facility] CenterAhtedjnABEOLOBKHU7424-16-23 06:44:00 Test Item Value Reference Range Interpretation Comments MPV (test code = MPV) 9.5 7.4-10.4 [facility] CenterWyoffvsAQTCMQOTRS0902-90-33 06:44:00 Test Item Value Reference Range Interpretation Comments RDW (test code = RDW) 17.8 11.5-14.5 [facility] CenterOvcllusBXTLHGQPLW6896-37-33 06:44:00 Test Item Value Reference Range Interpretation Comments MCV (test code = MCV) 73.2 80.0-98.0 [facility] HospitalObfbuaeWOBPCTCBJE1810-66-69 06:44:00 Test Item Value Reference Range Interpretation Comments MCH (test code = MCH) 21.9 pg 27.0-31.0 [facility]EnlcebwREWRVYGOCX9121-00-57 06:44:00 Test Item Value Reference Range Interpretation Comments Hct (test code = Hct) 27.2 36.0-48.0 [facility] HospitalXmytjfhGKSJSHRQGR8980-88-42 06:44:00 Test Item Value Reference Range Interpretation Comments MCHC (test code = MCHC) 29.9 32.0-36.0 [facility] CenterJhqmagfNIKDVWEHEW0297-77-49 06:44:00 Test Item Value Reference Range Interpretation Comments Platelet (test code = Platelet) 400 133-450 [facility] HospitalNwcpjgoWVLZOCNZIT2101-29-91 06:44:00 Test Item Value Reference Range Interpretation Comments WBC (test code = WBC) 12.4 3.7-10.4 [facility] [id number] 06:44:00 Test Item Value Reference Range Interpretation Comments RBC (test code = RBC) 3.72 4.20-5.40 [facility] CenterHwlcwprXTOTBSHUMX1747-84-55 06:44:00 Test Item Value Reference Range Interpretation Comments Hgb (test code = Hgb) 8.1 12.0-16.0 [facility] CenterGznsjuyFOJPTXIXTM6909-68-69 06:44:00 Test Item Value Reference Range Interpretation Comments PTT (test code = PTT) 27.2 s 22.9-35.8 [facility] CenterWtqemdkJDPLGILMWF5346-39-63 06:44:00 Test Item Value Reference Range Interpretation Comments PT (test code = PT) 14.7 s 12.0-14.7 [facility] CenterFoiuztqFRAVMUTXNB0103-33-64 06:44:00 Test Item Value Reference Range Interpretation Comments INR (test code = INR) 1.12 0.85-1.17 [facility] [id number] 06:44:00 Test Item Value Reference Range Interpretation Comments Antibody Scrn (test Negative (02/13/16 1:44 code = Antibody Scrn) AM) [facility] [id number] 06:44:00 Test Item Value Reference Range Interpretation Comments ABO/Rh (test code = ABO/Rh) A [facility] [id number] 06:44:00 Test Item Value Reference Range Interpretation Comments CK MB Index (test 1.6 See_Comment [Automate d message] The code = CK MB Index) system w [facility] generated this result transmit gaye reference range : <=2.5. The reference range was not used to interpr et this result as satish l/abnormal. [facility] [employer] [id number] 06:44:00 Test Item Value Reference Range Interpretation Comments CK MB (test code = CK MB) 0.9 0.5-3.6 [facility] [employer] [id number] 06:44:00 Test Item Value Reference Range Interpretation Comments Total CK (test code = Total CK) 57 12-191 [facility] [employer] [id number] 06:44:00 Test Item Value Reference Range Interpretation Comments Troponin-I (test code no gt See_Comment [Auto mated message] The = Troponin-I) system which g enerated this result transmit gaye reference range : <=0.40. The reference r ozzy was not used to interpr et this result as satish l/abnormal. [employer] [id number] 06:44:00 Test Item Value Reference Range Interpretation Comments Albumin Lvl (test code = Albumin Lvl) 3.5 3.5-5.0 [facility] [employer] [id number] 06:44:00 Test Item Value Reference Range Interpretation Comments Total Protein (test code = Total 7.0 6.4-8.4 Protein) [employer] [id number] 06:44:00 Test Item Value Reference Range Interpretation Comments ALT (test code = ALT) 19 See_Comment [Auto mated message] The system which ge nerated this result transmit gaye reference range : <=65. The reference range was not used to interpr et this result as satish l/abnormal. [employer] [id number] 06:44:00 Test Item Value Reference Range Interpretation Comments AST (test code = AST) 10 See_Comment [Auto mated message] The system which ge nerated this result transmit gaye reference range : <=37. The reference range was not used to interpr et this result as satish l/abnormal. [employer] [id number] 06:44:00 Test Item Value Reference Range Interpretation Comments Alk Phos (test code = Alk Phos) 79 39-136 [facility]2016-07-03 06:44:00 Test Item Value Reference Range Interpretation Comments Bili Total (test code = Bili Total) 0.4 0.2-1.3 [place] [id number] 06:44:00 Test Item Value Reference Range Interpretation Comments Bili Direct (test code 0.1 See_Comment [Aut omated message] The = Bili Direct) system which generated this result tra nsmitted reference range : <=0.3. The reference r ozzy was not used to int erpret this result as satish l/abnormal. [facility]2016-07-03 06:44:00 Test Item Value Reference Range Interpretation Comments Globulin (test code = Globulin) 3.5 2.0-4.0 [facility]2016-07-03 06:44:00 Test Item Value Reference Range Interpretation Comments A/G Ratio (test code = A/G Ratio) 1.0 0.7-1.6 [place] [id number] 06:44:00 Test Item Value Reference Range Interpretation Comments Bili Indirect (test 0.3 See_Comment [Automa gaye message] The code = Bili Indirect) system which generated this result tra nsmitted reference range : <=1.0. The reference r ozzy was not used to int erpret this result as normal/abnormal . [facility]2016-07-03 06:44:00 Test Item Value Reference Range Interpretation Comments eGFR (test code = eGFR) 107 [facility]2016-07-03 06:44:00 Test Item Value Reference Range Interpretation Comments BUN (test code = BUN) 8 7-22 [facility]2016-07-03 06:44:00 Test Item Value Reference Range Interpretation Comments Glucose Lvl (test code = Glucose Lvl) 91 70-99 [facility]2016-07-03 06:44:00 Test Item Value Reference Range Interpretation Comments Sodium Lvl (test code = Sodium Lvl) 138 135-145 [facility]2016-07-03 06:44:00 Test Item Value Reference Range Interpretation Comments Creatinine Lvl (test code = Creatinine 0.70 0.50-1.40 Lvl) [facility]2016-07-03 06:44:00 Test Item Value Reference Range Interpretation Comments Potassium Lvl (test code = Potassium 3.3 3.5-5.1 Lvl) [facility]2016-07-03 06:44:00 Test Item Value Reference Range Interpretation Comments CO2 (test code = CO2) 25 24-32 [facility]2016-07-03 06:44:00 Test Item Value Reference Range Interpretation Comments Chloride Lvl (test code = Chloride Lvl) 106 95-109 [facility]2016-07-03 06:44:00 Test Item Value Reference Range Interpretation Comments Calcium Lvl (test code = Calcium Lvl) 8.1 8.5-10.5 [facility]2016-07-03 06:44:00 Test Item Value Reference Range Interpretation Comments AGAP (test code = AGAP) 10.3 10.0-20.0 [facility]2016-07-03 06:44:00 Test Item Value Reference Range Interpretation Comments Magnesium Lvl (test code = Magnesium 2.2 1.8-2.4 Lvl) [id number] 06:44:00 Test Item Value Reference Range Interpretation Comments S Preg (test code = S Negative *NA*(02/13/16 Preg) 1:44 AM) [id number] 06:44:00 Test Item Value Reference Range Interpretation Comments Basophils (test code = 0.1 See_Comment [Aut omated message] The Basophils) system which ge nerated this result tra nsmitted reference range : <=1.0. The reference r ozzy was not used to int erpret this result as normal/abnormal . [facility] Cent[id number] 06:44:00 Test Item Value Reference Range Interpretation Comments Monocytes # (test code 0.3 See_Comment [Aut omated message] The = Monocytes #) system which generated this result tra nsmitted reference range : <=0.8. The reference r ozzy was not used to int erpret this result as normal/abnormal . [facility] Cent[id number] 06:44:00 Test Item Value Reference Range Interpretation Comments Eosinophils # (test code 0.1 See_Comment [A utomated message] The = Eosinophils #) system whic h generated this result tra nsmitted reference range : <=0.5. The reference r ozzy was not used to int erpret this result as normal/abnormal . [facility] [id number] 06:44:00 Test Item Value Reference Range Interpretation Comments Segs-Bands # (test code = Segs-Bands #) 9.3 1.5-8.1 [facility] C[id number] 06:44:00 Test Item Value Reference Range Interpretation Comments Lymphocytes # (test code = Lymphocytes 2.6 1.0-5.5 #) [facility] CenterQcbirhcJFMQKMBXAR5142-03-19 06:44:00 Test Item Value Reference Range Interpretation Comments Basophils # (test code 0.0 See_Comment [Aut omated message] The = Basophils #) system which generated this result tra nsmitted reference range : <=0.2. The reference r ozzy was not used to int erpret this result as normal/abnormal . [facility] CenterMwynjbpFHMPWXRKYZ2855-89-02 06:44:00 Test Item Value Reference Range Interpretation Comments Microcyte (test code = 1+ *ABN*(02/13/16 1:44 Microcyte) AM) [facility] C[id number] 06:44:00 Test Item Value Reference Range Interpretation Comments Giant Plt (test code Moderate *ABN*(02/13/16 = Giant Plt) 1:44 AM) [facility] CenterHhkmvxhAOVLTJQIPL6686-80-77 06:44:00 Test Item Value Reference Range Interpretation Comments Segs (test code = Segs) 75.2 45.0-75.0 [facility] CenterZqabwzyTGKCNGXRFZ6980-22-41 06:44:00 Test Item Value Reference Range Interpretation Comments Hypochrom (test code = 1+ (02/13/16 1:44 AM) Hypochrom) [facility] CenterMdopskiOTEYRVPMGV3200-78-04 06:44:00 Test Item Value Reference Range Interpretation Comments Eosinophils (test code = 0.7 See_Comment [A utomated message] The Eosinophils) system which ge nerated this result tra nsmitted reference range : <=4.0. The reference r ozzy was not used to int erpret this result as normal/abnormal . [facility] CenterHvegivkEZMFNCQNDQ0714-27-08 06:44:00 Test Item Value Reference Range Interpretation Comments Lymphocytes (test code = Lymphocytes) 21.3 20.0-40.0 [facility] CenterAyvumosRYAGWWXNKH2633-35-70 06:44:00 Test Item Value Reference Range Interpretation Comments Monocytes (test code = Monocytes) 2.7 2.0-12.0 [facility] CenterEbremrmLFSXSLUDMK1113-35-63 06:44:00 Test Item Value Reference Range Interpretation Comments MPV (test code = MPV) 9.5 7.4-10.4 [facility] Cent[id number] 06:44:00 Test Item Value Reference Range Interpretation Comments RDW (test code = RDW) 17.8 11.5-14.5 [facility] CenterFxfdkxqCUSPDDRJXS8701-67-86 06:44:00 Test Item Value Reference Range Interpretation Comments MCV (test code = MCV) 73.2 80.0-98.0 [facility] CenterWqufcwrOZTIANWXOY9523-16-38 06:44:00 Test Item Value Reference Range Interpretation Comments MCH (test code = MCH) 21.9 pg 27.0-31.0 [facility] CenterEiopgmhOZWVXNNIEN1162-35-23 06:44:00 Test Item Value Reference Range Interpretation Comments Hct (test code = Hct) 27.2 36.0-48.0 [facility] CenterGgmzvzbCIKAQZBYMT2326-86-95 06:44:00 Test Item Value Reference Range Interpretation Comments MCHC (test code = MCHC) 29.9 32.0-36.0 [facility] CenterKzftiwyELNLTUYYGB2097-59-72 06:44:00 Test Item Value Reference Range Interpretation Comments Platelet (test code = Platelet) 400 133-450 [facility] CenterMpygcuiTQLAUVEVQX7461-19-59 06:44:00 Test Item Value Reference Range Interpretation Comments WBC (test code = WBC) 12.4 3.7-10.4 [facility] CenterRzonsejKESGAZCQZV0626-31-77 06:44:00 Test Item Value Reference Range Interpretation Comments RBC (test code = RBC) 3.72 4.20-5.40 [facility] CenterUcnrofhVUBDURWTYH7458-24-56 06:44:00 Test Item Value Reference Range Interpretation Comments Hgb (test code = Hgb) 8.1 12.0-16.0 [facility] CenterVpwmxykVHEMKIYXMH8147-65-00 06:44:00 Test Item Value Reference Range Interpretation Comments PTT (test code = PTT) 27.2 s 22.9-35.8 [facility] VxyteqpAFXGRVAAFO4182-36-28 06:44:00 Test Item Value Reference Range Interpretation Comments PT (test code = PT) 14.7 s 12.0-14.7 [facility] HsiwrxiIUENELZDMY1472-86-85 06:44:00 Test Item Value Reference Range Interpretation Comments INR (test code = INR) 1.12 0.85-1.17 [facility] [id number] 06:44:00 Test Item Value Reference Range Interpretation Comments Antibody Scrn (test Negative (02/13/16 1:44 code = Antibody Scrn) AM) [facility] [id number] 06:44:00 Test Item Value Reference Range Interpretation Comments ABO/Rh (test code = ABO/Rh) A POS [facility] [employer]2016-07-03 06:44:00 Test Item Value Reference Range Interpretation Comments CK MB Index (test 1.6 See_Comment [Automate d message] The code = CK MB Index) system w [facility] generated this result transmit gaye reference range : <=2.5. The reference range was not used to interpr et this result as satish l/abnormal. [employer]2016-07-03 06:44:00 Test Item Value Reference Range Interpretation Comments CK MB (test code = CK MB) 0.9 0.5-3.6 [facility] [employer]2016-07-03 06:44:00 Test Item Value Reference Range Interpretation Comments Total CK (test code = Total CK) 57 12-191 [facility] [employer]2016-07-03 06:44:00 Test Item Value Reference Range Interpretation Comments Troponin-I (test code no gt See_Comment [Auto mated message] The = Troponin-I) system which g enerated this result transmit gaye reference range : <=0.40. The reference r ozzy was not used to interpr et this result as satish l/abnormal. [employer] [id number] 06:44:00 Test Item Value Reference Range Interpretation Comments Albumin Lvl (test code = Albumin Lvl) 3.5 3.5-5.0 [employer] [id number] 06:44:00 Test Item Value Reference Range Interpretation Comments Total Protein (test code = Total 7.0 6.4-8.4 Protein) [facility] CenterStart[facility] FreakSANDHILLS REGIONAL MEDICAL [id number] 06:44:00 Test Item Value Reference Range Interpretation Comments ALT (test code = ALT) 19 See_Comment [Auto mated message] The system which ge nerated this result transmit gaye reference range : <=65. The reference range was not used to interpr et this result as satish l/abnormal. [facility] CenterStartup FreakSANDHILLS REGIONAL MEDICAL CENTERFSAKX0685-33-07 06:44:00 Test Item Value Reference Range Interpretation Comments AST (test code = AST) 10 See_Comment [Auto mated message] The system which ge nerated this result transmit gaye reference range : <=37. The reference range was not used to interpr et this result as satish l/abnormal. [facility] CenterT[facility] [id number] 06:44:00 Test Item Value Reference Range Interpretation Comments Alk Phos (test code = Alk Phos) 79 39-136 [facility] CenterTriv[facility] [id number] 06:44:00 Test Item Value Reference Range Interpretation Comments Bili Total (test code = Bili Total) 0.4 0.2-1.3 [facility] [id number] 06:44:00 Test Item Value Reference Range Interpretation Comments Bili Direct (test code 0.1 See_Comment [Aut omated message] The = Bili Direct) system which generated this result tra nsmitted reference range : <=0.3. The reference r ozzy was not used to int erpret this result as satish l/abnormal. [facility] Center[facility] [id number] 06:44:00 Test Item Value Reference Range Interpretation Comments Globulin (test code = Globulin) 3.5 2.0-4.0 [facility] [id number] 06:44:00 Test Item Value Reference Range Interpretation Comments A/G Ratio (test code = A/G Ratio) 1.0 0.7-1.6 [facility] [id number] 06:44:00 Test Item Value Reference Range Interpretation Comments Bili Indirect (test 0.3 See_Comment [Automa gaye message] The code = Bili Indirect) system which generated this result tra nsmitted reference range : <=1.0. The reference r ozzy was not used to int erpret this result as normal/abnormal . [facility]2016-07-03 06:44:00 Test Item Value Reference Range Interpretation Comments eGFR (test code = eGFR) 107 [facility]2016-07-03 06:44:00 Test Item Value Reference Range Interpretation Comments BUN (test code = BUN) 8 7-22 [facility]2016-07-03 06:44:00 Test Item Value Reference Range Interpretation Comments Glucose Lvl (test code = Glucose Lvl) 91 70-99 [facility]2016-07-03 06:44:00 Test Item Value Reference Range Interpretation Comments Sodium Lvl (test code = Sodium Lvl) 138 135-145 [facility]2016-07-03 06:44:00 Test Item Value Reference Range Interpretation Comments Creatinine Lvl (test code = Creatinine 0.70 0.50-1.40 Lvl) [facility]2016-07-03 06:44:00 Test Item Value Reference Range Interpretation Comments Potassium Lvl (test code = Potassium 3.3 3.5-5.1 Lvl) [facility]2016-07-03 06:44:00 Test Item Value Reference Range Interpretation Comments CO2 (test code = CO2) 25 24-32 [facility]2016-07-03 06:44:00 Test Item Value Reference Range Interpretation Comments Chloride Lvl (test code = Chloride Lvl) 106 95-109 [facility]2016-07-03 06:44:00 Test Item Value Reference Range Interpretation Comments Calcium Lvl (test code = Calcium Lvl) 8.1 8.5-10.5 [facility]2016-07-03 06:44:00 Test Item Value Reference Range Interpretation Comments AGAP (test code = AGAP) 10.3 10.0-20.0 [facility]2016-07-03 06:44:00 Test Item Value Reference Range Interpretation Comments Magnesium Lvl (test code = Magnesium 2.2 1.8-2.4 Lvl) [facility] HospitalCsiywnvPTEMRHQTIBKPK7871-11-69 06:44:00 Test Item Value Reference Range Interpretation Comments S Preg (test code = S Negative *NA*(02/13/16 Preg) 1:44 AM) [facility] HospitalCcrlkqrBGPGMQFRUV3338-10-78 06:44:00 Test Item Value Reference Range Interpretation Comments Basophils (test code = 0.1 See_Comment [Aut omated message] The Basophils) system which ge nerated this result tra nsmitted reference range : <=1.0. The reference r ozzy was not used to int erpret this result as normal/abnormal . [facility] CenterMszepjaDETJWBSZGT0859-55-97 06:44:00 Test Item Value Reference Range Interpretation Comments Monocytes # (test code 0.3 See_Comment [Aut omated message] The = Monocytes #) system which generated this result tra nsmitted reference range : <=0.8. The reference r ozzy was not used to int erpret this result as normal/abnormal . [facility] CenterMvnphjaKFZYKZMAAS8448-17-21 06:44:00 Test Item Value Reference Range Interpretation Comments Eosinophils # (test code 0.1 See_Comment [A utomated message] The = Eosinophils #) system whic h generated this result tra nsmitted reference range : <=0.5. The reference r ozzy was not used to int erpret this result as normal/abnormal . [facility] CenterIanjhnzWOXGXBVSZR5546-68-53 06:44:00 Test Item Value Reference Range Interpretation Comments Segs-Bands # (test code = Segs-Bands #) 9.3 1.5-8.1 [facility] CenterCbxmigcNVKJTVSHXI0268-09-99 06:44:00 Test Item Value Reference Range Interpretation Comments Lymphocytes # (test code = Lymphocytes 2.6 1.0-5.5 #) [facility] CenterLllsjgnXLHIFLXQJQ7082-65-43 06:44:00 Test Item Value Reference Range Interpretation Comments Basophils # (test code 0.0 See_Comment [Aut omated message] The = Basophils #) system which generated this result tra nsmitted reference range : <=0.2. The reference r ozzy was not used to int erpret this result as normal/abnormal . [facility] CenterFdtagygRHNFGNAIHV6433-13-24 06:44:00 Test Item Value Reference Range Interpretation Comments Microcyte (test code = 1+ *ABN*(02/13/16 1:44 Microcyte) AM) [facility] CenterUgclqviYGDDWWJDDV1387-08-11 06:44:00 Test Item Value Reference Range Interpretation Comments Giant Plt (test code Moderate *ABN*(02/13/16 = Giant Plt) 1:44 AM) [facility] CenterUvgyfwiYXOPKWUMHG8417-33-43 06:44:00 Test Item Value Reference Range Interpretation Comments Segs (test code = Segs) 75.2 45.0-75.0 [facility] CenterHtxobbaTAAALOLMQZ2315-77-73 06:44:00 Test Item Value Reference Range Interpretation Comments Hypochrom (test code = 1+ (02/13/16 1:44 AM) Hypochrom) [facility] CenterGqvykanUHPSXWLHZY8624-39-84 06:44:00 Test Item Value Reference Range Interpretation Comments Eosinophils (test code = 0.7 See_Comment [A utomated message] The Eosinophils) system which ge nerated this result tra nsmitted reference range : <=4.0. The reference r ozzy was not used to int erpret this result as normal/abnormal . [facility] CenterYgmfmleRTMBUKLESD5445-98-56 06:44:00 Test Item Value Reference Range Interpretation Comments Lymphocytes (test code = Lymphocytes) 21.3 20.0-40.0 [facility] CenterZyyqhypLADFBIDEEC6046-91-21 06:44:00 Test Item Value Reference Range Interpretation Comments Monocytes (test code = Monocytes) 2.7 2.0-12.0 [facility] CenterMzrxluzKODXVIEYYE6181-58-01 06:44:00 Test Item Value Reference Range Interpretation Comments MPV (test code = MPV) 9.5 7.4-10.4 [facility] CenterJivelbfCELKMCGNDE2547-76-29 06:44:00 Test Item Value Reference Range Interpretation Comments RDW (test code = RDW) 17.8 11.5-14.5 [facility] CenterSzisjckBRTFEXJGHI5417-32-46 06:44:00 Test Item Value Reference Range Interpretation Comments MCV (test code = MCV) 73.2 80.0-98.0 [facility] CenterWjmfutvISNSRWMBLC0680-17-66 06:44:00 Test Item Value Reference Range Interpretation Comments MCH (test code = MCH) 21.9 pg 27.0-31.0 [facility] CenterTbfqovxFLGIAGOPBP9827-43-95 06:44:00 Test Item Value Reference Range Interpretation Comments Hct (test code = Hct) 27.2 36.0-48.0 [facility] CenterIbxdejgCJJGVCXEJN8288-41-39 06:44:00 Test Item Value Reference Range Interpretation Comments MCHC (test code = MCHC) 29.9 32.0-36.0 [facility] CenterRepddtiBWQRNMAYXO2912-26-14 06:44:00 Test Item Value Reference Range Interpretation Comments Platelet (test code = Platelet) 400 133-450 [facility] JmddoreTEHVTESLSD6373-45-07 06:44:00 Test Item Value Reference Range Interpretation Comments WBC (test code = WBC) 12.4 3.7-10.4 [facility] VkrgmlmPUGAYBLEDX1343-69-10 06:44:00 Test Item Value Reference Range Interpretation Comments RBC (test code = RBC) 3.72 4.20-5.40 [employer] BiosystemsZyvysjwKHRBCZYZBM4334-76-31 06:44:00 Test Item Value Reference Range Interpretation Comments Hgb (test code = Hgb) 8.1 12.0-16.0 [employer] BiosystemsNxewbypSTHHLEASVY4928-72-77 06:44:00 Test Item Value Reference Range Interpretation Comments PTT (test code = PTT) 27.2 s 22.9-35.8 [facility] KmvyaywYXUUPOJWMM9249-91-28 06:44:00 Test Item Value Reference Range Interpretation Comments PT (test code = PT) 14.7 s 12.0-14.7 [facility] GalignvANZOMYPHXT0392-79-56 06:44:00 Test Item Value Reference Range Interpretation Comments INR (test code = INR) 1.12 0.85-1.17 [facility] [id number] 06:44:00 Test Item Value Reference Range Interpretation Comments Antibody Scrn (test Negative (02/13/16 1:44 code = Antibody Scrn) AM) [facility] [id number] 06:44:00 Test Item Value Reference Range Interpretation Comments ABO/Rh (test code = ABO/Rh) A POS [employer]2016-07-03 06:44:00 Test Item Value Reference Range Interpretation Comments CK MB Index (test 1.6 See_Comment [Automate d message] The code = CK MB Index) system w [facility] generated this result transmit gaye reference range : <=2.5. The reference range was not used to interpr et this result as satish l/abnormal. [employer]2016-07-03 06:44:00 Test Item Value Reference Range Interpretation Comments CK MB (test code = CK MB) 0.9 0.5-3.6 [employer]2016-07-03 06:44:00 Test Item Value Reference Range Interpretation Comments Total CK (test code = Total CK) 57 12-191 [facility] HospitalCARD[facility]AC [id number] 06:44:00 Test Item Value Reference Range Interpretation Comments Troponin-I (test code no gt See_Comment [Auto mated message] The = Troponin-I) system which g enerated this result transmit gaye reference range : <=0.40. The reference r ozzy was not used to interpr et this result as satish l/abnormal. [facility] [employer] [id number] 06:44:00 Test Item Value Reference Range Interpretation Comments Albumin Lvl (test code = Albumin Lvl) 3.5 3.5-5.0 [facility] [employer] [id number] 06:44:00 Test Item Value Reference Range Interpretation Comments Total Protein (test code = Total 7.0 6.4-8.4 Protein) [facility] [employer] [id number] 06:44:00 Test Item Value Reference Range Interpretation Comments ALT (test code = ALT) 19 See_Comment [Auto mated message] The system which ge nerated this result transmit gaye reference range : <=65. The reference range was not used to interpr et this result as satish l/abnormal. [facility] [employer] [id number] 06:44:00 Test Item Value Reference Range Interpretation Comments AST (test code = AST) 10 See_Comment [Auto mated message] The system which ge nerated this result transmit gaye reference range : <=37. The reference range was not used to interpr et this result as satish l/abnormal. [facility] [employer] [id number] 06:44:00 Test Item Value Reference Range Interpretation Comments Alk Phos (test code = Alk Phos) 79 39-136 [facility] [employer] [id number] 06:44:00 Test Item Value Reference Range Interpretation Comments Bili Total (test code = Bili Total) 0.4 0.2-1.3 [facility] [employer] [id number] 06:44:00 Test Item Value Reference Range Interpretation Comments Bili Direct (test code 0.1 See_Comment [Aut omated message] The = Bili Direct) system which generated this result tra nsmitted reference range : <=0.3. The reference r ozzy was not used to int erpret this result as satish l/abnormal. [facility]2016-07-03 06:44:00 Test Item Value Reference Range Interpretation Comments Globulin (test code = Globulin) 3.5 2.0-4.0 [facility]2016-07-03 06:44:00 Test Item Value Reference Range Interpretation Comments A/G Ratio (test code = A/G Ratio) 1.0 0.7-1.6 [facility]2016-07-03 06:44:00 Test Item Value Reference Range Interpretation Comments Bili Indirect (test 0.3 See_Comment [Automa gaye message] The code = Bili Indirect) system which generated this result tra nsmitted reference range : <=1.0. The reference r ozzy was not used to int erpret this result as normal/abnormal . [place] [id number] 06:44:00 Test Item Value Reference Range Interpretation Comments eGFR (test code = eGFR) 107 [facility]2016-07-03 06:44:00 Test Item Value Reference Range Interpretation Comments BUN (test code = BUN) 8 7-22 [place] [id number] 06:44:00 Test Item Value Reference Range Interpretation Comments Glucose Lvl (test code = Glucose Lvl) 91 70-99 [facility]2016-07-03 06:44:00 Test Item Value Reference Range Interpretation Comments Sodium Lvl (test code = Sodium Lvl) 138 135-145 [facility]2016-07-03 06:44:00 Test Item Value Reference Range Interpretation Comments Creatinine Lvl (test code = Creatinine 0.70 0.50-1.40 Lvl) [facility]2016-07-03 06:44:00 Test Item Value Reference Range Interpretation Comments Potassium Lvl (test code = Potassium 3.3 3.5-5.1 Lvl) [facility]2016-07-03 06:44:00 Test Item Value Reference Range Interpretation Comments CO2 (test code = CO2) 25 24-32 [facility]2016-07-03 06:44:00 Test Item Value Reference Range Interpretation Comments Chloride Lvl (test code = Chloride Lvl) 106 95-109 [facility]2016-07-03 06:44:00 Test Item Value Reference Range Interpretation Comments Calcium Lvl (test code = Calcium Lvl) 8.1 8.5-10.5 [facility]2016-07-03 06:44:00 Test Item Value Reference Range Interpretation Comments AGAP (test code = AGAP) 10.3 10.0-20.0 [facility]2016-07-03 06:44:00 Test Item Value Reference Range Interpretation Comments Magnesium Lvl (test code = Magnesium 2.2 1.8-2.4 Lvl) [facility] 06:44:00 Test Item Value Reference Range Interpretation Comments S Preg (test code = S Negative *NA*(02/13/16 Preg) 1:44 AM) [facility]XCUBCJERTO8701[facility] 06:44:00 Test Item Value Reference Range Interpretation Comments Basophils (test code = 0.1 See_Comment [Aut omated message] The Basophils) system which ge nerated this result tra nsmitted reference range : <=1.0. The reference r ozzy was not used to int erpret this result as normal/abnormal . [facility]ChdteijVIMOQOYAWI5270-07-75 06:44:00 Test Item Value Reference Range Interpretation Comments Monocytes # (test code 0.3 See_Comment [Aut omated message] The = Monocytes #) system which generated this result tra nsmitted reference range : <=0.8. The reference r ozzy was not used to int erpret this result as normal/abnormal . [facility] CenterQtzrjruOBKFNYYVUF9446-75-87 06:44:00 Test Item Value Reference Range Interpretation Comments Eosinophils # (test code 0.1 See_Comment [A utomated message] The = Eosinophils #) system whic h generated this result tra nsmitted reference range : <=0.5. The reference r ozzy was not used to int erpret this result as normal/abnormal . [facility] CenterUrnnkyvCBSOPMTLLW6550-67-96 06:44:00 Test Item Value Reference Range Interpretation Comments Segs-Bands # (test code = Segs-Bands #) 9.3 1.5-8.1 [facility] CenterMbtzikvCZDGGCKHAN5830-00-62 06:44:00 Test Item Value Reference Range Interpretation Comments Lymphocytes # (test code = Lymphocytes 2.6 1.0-5.5 #) [facility] CenterLqukmqvOSPNWAHWEW8582-91-21 06:44:00 Test Item Value Reference Range Interpretation Comments Basophils # (test code 0.0 See_Comment [Aut omated message] The = Basophils #) system which generated this result tra nsmitted reference range : <=0.2. The reference r ozzy was not used to int erpret this result as normal/abnormal . [facility] CenterAaxqyzyZYIQCKZVWJ1467-45-55 06:44:00 Test Item Value Reference Range Interpretation Comments Microcyte (test code = 1+ *ABN*(02/13/16 1:44 Microcyte) AM) [facility] CenterWzquerzNUQRXWXSFB1705-51-79 06:44:00 Test Item Value Reference Range Interpretation Comments Giant Plt (test code Moderate *ABN*(02/13/16 = Giant Plt) 1:44 AM) [facility] CenterSuryjndIDRMQROFMD1376-53-06 06:44:00 Test Item Value Reference Range Interpretation Comments Segs (test code = Segs) 75.2 45.0-75.0 [facility] CenterTedhzgtDSGRYZHBEC6315-22-42 06:44:00 Test Item Value Reference Range Interpretation Comments Hypochrom (test code = 1+ (02/13/16 1:44 AM) Hypochrom) [facility] CenterHkpqtyrTNTTRZSJBG5532-90-76 06:44:00 Test Item Value Reference Range Interpretation Comments Eosinophils (test code = 0.7 See_Comment [A utomated message] The Eosinophils) system which ge nerated this result tra nsmitted reference range : <=4.0. The reference r ozzy was not used to int erpret this result as normal/abnormal . [facility] CenterKquaqypKTDGPWTEVA0858-49-22 06:44:00 Test Item Value Reference Range Interpretation Comments Lymphocytes (test code = Lymphocytes) 21.3 20.0-40.0 [facility] CenterDvgnbcnYTCEVIAJTV8635-01-76 06:44:00 Test Item Value Reference Range Interpretation Comments Monocytes (test code = Monocytes) 2.7 2.0-12.0 [facility] CenterFrgzizrFRUBRSMSNH1593-31-82 06:44:00 Test Item Value Reference Range Interpretation Comments MPV (test code = MPV) 9.5 7.4-10.4 [facility] CenterFxqwcfyFACVHOEAMT9140-95-50 06:44:00 Test Item Value Reference Range Interpretation Comments RDW (test code = RDW) 17.8 11.5-14.5 [facility]RymjzlnPNAHSTGVUU7039-29-25 06:44:00 Test Item Value Reference Range Interpretation Comments MCV (test code = MCV) 73.2 80.0-98.0 [facility] CenterBzstilrIGFICUWWBH0102-75-51 06:44:00 Test Item Value Reference Range Interpretation Comments MCH (test code = MCH) 21.9 pg 27.0-31.0 [facility] CenterUrruuqvVMDKXUQPCM8267-15-01 06:44:00 Test Item Value Reference Range Interpretation Comments Hct (test code = Hct) 27.2 36.0-48.0 [facility] HospitalNuxadyqNTUMSDGEIP7208-49-45 06:44:00 Test Item Value Reference Range Interpretation Comments MCHC (test code = MCHC) 29.9 32.0-36.0 [facility] CenterFcmikveGARGHXQFWV6609-91-16 06:44:00 Test Item Value Reference Range Interpretation Comments Platelet (test code = Platelet) 400 133-450 [facility] CenterOrkrijiVBPLLVFLKP7845-14-38 06:44:00 Test Item Value Reference Range Interpretation Comments WBC (test code = WBC) 12.4 3.7-10.4 [facility] CenterXjfwzeeQUGQMOSTIN6923-54-23 06:44:00 Test Item Value Reference Range Interpretation Comments RBC (test code = RBC) 3.72 4.20-5.40 [facility] CenterWqiuxclMENVYXJPGD2228-92-80 06:44:00 Test Item Value Reference Range Interpretation Comments Hgb (test code = Hgb) 8.1 12.0-16.0 [facility] CenterRbobymuZQFVQCPHJV9773-91-44 06:44:00 Test Item Value Reference Range Interpretation Comments PTT (test code = PTT) 27.2 s 22.9-35.8 [facility] CenterVifutqhSMOLPZEKJY2847-89-16 06:44:00 Test Item Value Reference Range Interpretation Comments PT (test code = PT) 14.7 s 12.0-14.7 [facility] CenterPknjvcoTKXHXCQPWR3394-77-96 06:44:00 Test Item Value Reference Range Interpretation Comments INR (test code = INR) 1.12 0.85-1.17 [facility] [id number] 06:44:00 Test Item Value Reference Range Interpretation Comments Antibody Scrn (test Negative (02/13/16 1:44 code = Antibody Scrn) AM) [facility]ann[facility] SBJCPSM4459-75-83 06:44:00 Test Item Value Reference Range Interpretation Comments ABO/Rh (test code = ABO/Rh) A POS [facility] [employer]AC [id number] 06:44:00 Test Item Value Reference Range Interpretation Comments CK MB Index (test 1.6 See_Comment [Automate d message] The code = CK MB Index) system w [facility] generated this result transmit gaye reference range : <=2.5. The reference range was not used to interpr et this result as satish l/abnormal. [facility] [employer] [id number] 06:44:00 Test Item Value Reference Range Interpretation Comments CK MB (test code = CK MB) 0.9 0.5-3.6 [facility] [employer] [id number] 06:44:00 Test Item Value Reference Range Interpretation Comments Total CK (test code = Total CK) 57 12-191 [facility] [employer] [id number] 06:44:00 Test Item Value Reference Range Interpretation Comments Troponin-I (test code no gt See_Comment [Auto mated message] The = Troponin-I) system which g enerated this result transmit gaye reference range : <=0.40. The reference r ozzy was not used to interpr et this result as satish l/abnormal. [employer] [id number] 06:44:00 Test Item Value Reference Range Interpretation Comments Albumin Lvl (test code = Albumin Lvl) 3.5 3.5-5.0 [facility] [id number] 06:44:00 Test Item Value Reference Range Interpretation Comments Total Protein (test code = Total 7.0 6.4-8.4 Protein) [facility] [id number] 06:44:00 Test Item Value Reference Range Interpretation Comments ALT (test code = ALT) 19 See_Comment [Auto mated message] The system which ge nerated this result transmit gaye reference range : <=65. The reference range was not used to interpr et this result as satish l/abnormal. [employer] [id number] 06:44:00 Test Item Value Reference Range Interpretation Comments AST (test code = AST) 10 See_Comment [Auto mated message] The system which ge nerated this result transmit gaye reference range : <=37. The reference range was not used to interpr et this result as satish l/abnormal. [facility]2016-07-03 06:44:00 Test Item Value Reference Range Interpretation Comments Alk Phos (test code = Alk Phos) 79 39-136 [place] 670646-07-03 06:44:00 Test Item Value Reference Range Interpretation Comments Bili Total (test code = Bili Total) 0.4 0.2-1.3 [facility]2016-07-03 06:44:00 Test Item Value Reference Range Interpretation Comments Bili Direct (test code 0.1 See_Comment [Aut omated message] The = Bili Direct) system which generated this result tra nsmitted reference range : <=0.3. The reference r ozzy was not used to int erpret this result as satish l/abnormal. [facility]2016-07-03 06:44:00 Test Item Value Reference Range Interpretation Comments Globulin (test code = Globulin) 3.5 2.0-4.0 [facility]2016-07-03 06:44:00 Test Item Value Reference Range Interpretation Comments A/G Ratio (test code = A/G Ratio) 1.0 0.7-1.6 [facility]2016-07-03 06:44:00 Test Item Value Reference Range Interpretation Comments Bili Indirect (test 0.3 See_Comment [Automa gaye message] The code = Bili Indirect) system which generated this result tra nsmitted reference range : <=1.0. The reference r ozzy was not used to int erpret this result as normal/abnormal . [facility]2016-07-03 06:44:00 Test Item Value Reference Range Interpretation Comments eGFR (test code = eGFR) 107 [facility]2016-07-03 06:44:00 Test Item Value Reference Range Interpretation Comments BUN (test code = BUN) 8 7-22 [facility]2016-07-03 06:44:00 Test Item Value Reference Range Interpretation Comments Glucose Lvl (test code = Glucose Lvl) 91 70-99 [facility]2016-07-03 06:44:00 Test Item Value Reference Range Interpretation Comments Sodium Lvl (test code = Sodium Lvl) 138 135-145 [facility]2016-07-03 06:44:00 Test Item Value Reference Range Interpretation Comments Creatinine Lvl (test code = Creatinine 0.70 0.50-1.40 Lvl) [facility]2016-07-03 06:44:00 Test Item Value Reference Range Interpretation Comments Potassium Lvl (test code = Potassium 3.3 3.5-5.1 Lvl) [facility]2016-07-03 06:44:00 Test Item Value Reference Range Interpretation Comments CO2 (test code = CO2) 25 24-32 [facility]2016-07-03 06:44:00 Test Item Value Reference Range Interpretation Comments Chloride Lvl (test code = Chloride Lvl) 106 95-109 [facility]2016-07-03 06:44:00 Test Item Value Reference Range Interpretation Comments Calcium Lvl (test code = Calcium Lvl) 8.1 8.5-10.5 [facility]2016-07-03 06:44:00 Test Item Value Reference Range Interpretation Comments AGAP (test code = AGAP) 10.3 10.0-20.0 [facility]2016-07-03 06:44:00 Test Item Value Reference Range Interpretation Comments Magnesium Lvl (test code = Magnesium 2.2 1.8-2.4 Lvl) [facility]0009[facility] 06:44:00 Test Item Value Reference Range Interpretation Comments S Preg (test code = S Negative *NA*(02/13/16 Preg) 1:44 AM) [facility]SuugjzpFJLVYHCEAD7643-44-03 06:44:00 Test Item Value Reference Range Interpretation Comments Basophils (test code = 0.1 See_Comment [Aut omated message] The Basophils) system which ge nerated this result tra nsmitted reference range : <=1.0. The reference r ozzy was not used to int erpret this result as normal/abnormal . [facility] CenterGjnzokuOPYFBMSTUP2423-23-72 06:44:00 Test Item Value Reference Range Interpretation Comments Monocytes # (test code 0.3 See_Comment [Aut omated message] The = Monocytes #) system which generated this result tra nsmitted reference range : <=0.8. The reference r ozzy was not used to int erpret this result as normal/abnormal . [facility] CenterXgugwqhJEQPRVKOHC6253-96-01 06:44:00 Test Item Value Reference Range Interpretation Comments Eosinophils # (test code 0.1 See_Comment [A utomated message] The = Eosinophils #) system whic h generated this result tra nsmitted reference range : <=0.5. The reference r ozzy was not used to int erpret this result as normal/abnormal . [facility] CenterCccurkhPKJICISZYI5189-97-65 06:44:00 Test Item Value Reference Range Interpretation Comments Segs-Bands # (test code = Segs-Bands #) 9.3 1.5-8.1 [facility] CenterQzjjqjeWVUMSMOJKQ9473-33-87 06:44:00 Test Item Value Reference Range Interpretation Comments Lymphocytes # (test code = Lymphocytes 2.6 1.0-5.5 #) [facility] CenterEttkfbuTTPHPNWMXP4327-11-17 06:44:00 Test Item Value Reference Range Interpretation Comments Basophils # (test code 0.0 See_Comment [Aut omated message] The = Basophils #) system which generated this result tra nsmitted reference range : <=0.2. The reference r ozzy was not used to int erpret this result as normal/abnormal . [facility] CenterYrcggfqOIIRAIYAHN3723-31-36 06:44:00 Test Item Value Reference Range Interpretation Comments Microcyte (test code = 1+ *ABN*(02/13/16 1:44 Microcyte) AM) [facility] CenterKbsoxhrVCGRWWFKEB3576-56-39 06:44:00 Test Item Value Reference Range Interpretation Comments Giant Plt (test code Moderate *ABN*(02/13/16 = Giant Plt) 1:44 AM) [facility] CenterJmmirnoMPHEHSGFDP9470-19-15 06:44:00 Test Item Value Reference Range Interpretation Comments Segs (test code = Segs) 75.2 45.0-75.0 [facility] CenterLzgcoouOVJRJEUIXA9727-86-22 06:44:00 Test Item Value Reference Range Interpretation Comments Hypochrom (test code = 1+ (02/13/16 1:44 AM) Hypochrom) [facility] CenterMlndqpdLMRDEPYMMQ3322-88-65 06:44:00 Test Item Value Reference Range Interpretation Comments Eosinophils (test code = 0.7 See_Comment [A utomated message] The Eosinophils) system which ge nerated this result tra nsmitted reference range : <=4.0. The reference r ozzy was not used to int erpret this result as normal/abnormal . [facility] CenterWgmpquiWOFFNFYWDM5949-62-59 06:44:00 Test Item Value Reference Range Interpretation Comments Lymphocytes (test code = Lymphocytes) 21.3 20.0-40.0 [facility] CenterAwxsmacAWDXKZEHAI3241-62-78 06:44:00 Test Item Value Reference Range Interpretation Comments Monocytes (test code = Monocytes) 2.7 2.0-12.0 [facility] CenterOkdgsuoZOJCVZYVQN3906-65-40 06:44:00 Test Item Value Reference Range Interpretation Comments MPV (test code = MPV) 9.5 7.4-10.4 [facility] CenterDsmpmuiGNBQRXHNPX1094-49-61 06:44:00 Test Item Value Reference Range Interpretation Comments RDW (test code = RDW) 17.8 11.5-14.5 [facility] CenterYsdzcxdVZZSMZKUPN9489-81-42 06:44:00 Test Item Value Reference Range Interpretation Comments MCV (test code = MCV) 73.2 80.0-98.0 [facility] CenterHyrvwwgOKXGWWOHDW9590-34-26 06:44:00 Test Item Value Reference Range Interpretation Comments MCH (test code = MCH) 21.9 pg 27.0-31.0 [facility] CenterEouxdtpWBWDJXSRVB9377-82-94 06:44:00 Test Item Value Reference Range Interpretation Comments Hct (test code = Hct) 27.2 36.0-48.0 [facility] CenterJaygfhlRGRLQIFZWD2619-78-34 06:44:00 Test Item Value Reference Range Interpretation Comments MCHC (test code = MCHC) 29.9 32.0-36.0 [facility] CenterYzejjdoOMEQANRFBM5448-93-38 06:44:00 Test Item Value Reference Range Interpretation Comments Platelet (test code = Platelet) 400 133-450 [facility] CenterGkxutugUJWDOHYFXE0226-81-82 06:44:00 Test Item Value Reference Range Interpretation Comments WBC (test code = WBC) 12.4 3.7-10.4 [facility] CenterKvissubKMEVZDTAAS8438-47-06 06:44:00 Test Item Value Reference Range Interpretation Comments RBC (test code = RBC) 3.72 4.20-5.40 [facility] CenterOcieqzpFHSTATYWBR0648-61-90 06:44:00 Test Item Value Reference Range Interpretation Comments Hgb (test code = Hgb) 8.1 12.0-16.0 [facility] VkrrvqtKETRRPUVJJ0516-95-61 06:44:00 Test Item Value Reference Range Interpretation Comments PTT (test code = PTT) 27.2 s 22.9-35.8 [facility] ZvyjmvsQYNRJLLOYC9938-51-31 06:44:00 Test Item Value Reference Range Interpretation Comments PT (test code = PT) 14.7 s 12.0-14.7 [facility] VbgguthDCKEEFJFZW3378-25-40 06:44:00 Test Item Value Reference Range Interpretation Comments INR (test code = INR) 1.12 0.85-1.17 [facility] [employer] [id number] 06:44:00 Test Item Value Reference Range Interpretation Comments Antibody Scrn (test Negative (02/13/16 1:44 code = Antibody Scrn) AM) [facility] [employer] [id number] 06:44:00 Test Item Value Reference Range Interpretation Comments ABO/Rh (test code = ABO/Rh) A POS [employer]2016-07-03 06:44:00 Test Item Value Reference Range Interpretation Comments CK MB Index (test 1.6 See_Comment [Automate d message] The code = CK MB Index) system w [facility] generated this result transmit gaye reference range : <=2.5. The reference range was not used to interpr et this result as satish l/abnormal. [employer]2016-07-03 06:44:00 Test Item Value Reference Range Interpretation Comments CK MB (test code = CK MB) 0.9 0.5-3.6 [facility] [employer]2016-07-03 06:44:00 Test Item Value Reference Range Interpretation Comments Total CK (test code = Total CK) 57 12-191 [facility] [employer]2016-07-03 06:44:00 Test Item Value Reference Range Interpretation Comments Troponin-I (test code no gt See_Comment [Auto mated message] The = Troponin-I) system which g enerated this result transmit gaye reference range : <=0.40. The reference r ozzy was not used to interpr et this result as satish l/abnormal. [employer] [id number] 06:44:00 Test Item Value Reference Range Interpretation Comments Albumin Lvl (test code = Albumin Lvl) 3.5 3.5-5.0 [facility] CenterStartup FreakSANDHILLS REGIONAL MEDICAL CENTERHOJVN0925-52-64 06:44:00 Test Item Value Reference Range Interpretation Comments Total Protein (test code = Total 7.0 6.4-8.4 Protein) [facility]2016-07-03 06:44:00 Test Item Value Reference Range Interpretation Comments ALT (test code = ALT) 19 See_Comment [Auto mated message] The system which ge nerated this result transmit gaye reference range : <=65. The reference range was not used to interpr et this result as satish l/abnormal. [facility] CenterStartup FreakSANDHILLS REGIONAL MEDICAL CENTERXXWIV8946-02-24 06:44:00 Test Item Value Reference Range Interpretation Comments AST (test code = AST) 10 See_Comment [Auto mated message] The system which ge nerated this result transmit gaye reference range : <=37. The reference range was not used to interpr et this result as satish l/abnormal. [facility] CenterTrivop [id number] 06:44:00 Test Item Value Reference Range Interpretation Comments Alk Phos (test code = Alk Phos) 79 39-136 [facility] CenterTriv[facility] [id number] 06:44:00 Test Item Value Reference Range Interpretation Comments Bili Total (test code = Bili Total) 0.4 0.2-1.3 [facility]2016-07-03 06:44:00 Test Item Value Reference Range Interpretation Comments Bili Direct (test code 0.1 See_Comment [Aut omated message] The = Bili Direct) system which generated this result tra nsmitted reference range : <=0.3. The reference r ozzy was not used to int erpret this result as satish l/abnormal. [facility] CenterTriv[facility] [id number] 06:44:00 Test Item Value Reference Range Interpretation Comments Globulin (test code = Globulin) 3.5 2.0-4.0 [facility] HospitalSh[facility] [id number] 06:44:00 Test Item Value Reference Range Interpretation Comments A/G Ratio (test code = A/G Ratio) 1.0 0.7-1.6 [facility] CenterTriv[facility] [id number] 06:44:00 Test Item Value Reference Range Interpretation Comments Bili Indirect (test 0.3 See_Comment [Automa gaye message] The code = Bili Indirect) system which generated this result tra nsmitted reference range : <=1.0. The reference r ozzy was not used to int erpret this result as normal/abnormal . [facility]2016-07-03 06:44:00 Test Item Value Reference Range Interpretation Comments eGFR (test code = eGFR) 107 [facility]2016-07-03 06:44:00 Test Item Value Reference Range Interpretation Comments BUN (test code = BUN) 8 7-22 [facility]2016-07-03 06:44:00 Test Item Value Reference Range Interpretation Comments Glucose Lvl (test code = Glucose Lvl) 91 70-99 [facility]2016-07-03 06:44:00 Test Item Value Reference Range Interpretation Comments Sodium Lvl (test code = Sodium Lvl) 138 135-145 [facility]2016-07-03 06:44:00 Test Item Value Reference Range Interpretation Comments Creatinine Lvl (test code = Creatinine 0.70 0.50-1.40 Lvl) [facility]2016-07-03 06:44:00 Test Item Value Reference Range Interpretation Comments Potassium Lvl (test code = Potassium 3.3 3.5-5.1 Lvl) [facility]2016-07-03 06:44:00 Test Item Value Reference Range Interpretation Comments CO2 (test code = CO2) 25 24-32 [facility]2016-07-03 06:44:00 Test Item Value Reference Range Interpretation Comments Chloride Lvl (test code = Chloride Lvl) 106 95-109 [facility]2016-07-03 06:44:00 Test Item Value Reference Range Interpretation Comments Calcium Lvl (test code = Calcium Lvl) 8.1 8.5-10.5 [facility]2016-07-03 06:44:00 Test Item Value Reference Range Interpretation Comments AGAP (test code = AGAP) 10.3 10.0-20.0 [facility]2016-07-03 06:44:00 Test Item Value Reference Range Interpretation Comments Magnesium Lvl (test code = Magnesium 2.2 1.8-2.4 Lvl) [facility] [facility]EZS3656-96-43 06:44:00 Test Item Value Reference Range Interpretation Comments S Preg (test code = S Negative *NA*(02/13/16 Preg) 1:44 AM) [facility]houIWVLMSVITL2591-24-98 06:44:00 Test Item Value Reference Range Interpretation Comments Basophils (test code = 0.1 See_Comment [Aut omated message] The Basophils) system which ge nerated this result tra nsmitted reference range : <=1.0. The reference r ozzy was not used to int erpret this result as normal/abnormal . [facility] CenterXgpaniuULHIKNMITQ6535-90-84 06:44:00 Test Item Value Reference Range Interpretation Comments Monocytes # (test code 0.3 See_Comment [Aut omated message] The = Monocytes #) system which generated this result tra nsmitted reference range : <=0.8. The reference r ozzy was not used to int erpret this result as normal/abnormal . [facility] CenterDrklriqUWQFUPEYHR2785-70-70 06:44:00 Test Item Value Reference Range Interpretation Comments Eosinophils # (test code 0.1 See_Comment [A utomated message] The = Eosinophils #) system whic h generated this result tra nsmitted reference range : <=0.5. The reference r ozzy was not used to int erpret this result as normal/abnormal . [facility] CenterHoqfscvNTJJNUVJGJ5321-00-98 06:44:00 Test Item Value Reference Range Interpretation Comments Segs-Bands # (test code = Segs-Bands #) 9.3 1.5-8.1 [facility] CenterWgszobnKCCFZRJNOJ1447-40-28 06:44:00 Test Item Value Reference Range Interpretation Comments Lymphocytes # (test code = Lymphocytes 2.6 1.0-5.5 #) [facility] CenterRbyghbvRSHSLQNOLO6287-41-26 06:44:00 Test Item Value Reference Range Interpretation Comments Basophils # (test code 0.0 See_Comment [Aut omated message] The = Basophils #) system which generated this result tra nsmitted reference range : <=0.2. The reference r ozzy was not used to int erpret this result as normal/abnormal . [facility] CenterJzskhmoMZGFZCMOMS0317-21-95 06:44:00 Test Item Value Reference Range Interpretation Comments Microcyte (test code = 1+ *ABN*(02/13/16 1:44 Microcyte) AM) [facility] CenterJwflzkiBXJEGZZRSX0367-94-82 06:44:00 Test Item Value Reference Range Interpretation Comments Giant Plt (test code Moderate *ABN*(02/13/16 = Giant Plt) 1:44 AM) [facility] CenterUujqnhgDOGXHTHCOV0516-69-00 06:44:00 Test Item Value Reference Range Interpretation Comments Segs (test code = Segs) 75.2 45.0-75.0 [facility] CenterLgmvfnwQDAWTKZRSP6664-71-64 06:44:00 Test Item Value Reference Range Interpretation Comments Hypochrom (test code = 1+ (02/13/16 1:44 AM) Hypochrom) [facility] CenterYefavdrQHYDKGSAPI0305-40-16 06:44:00 Test Item Value Reference Range Interpretation Comments Eosinophils (test code = 0.7 See_Comment [A utomated message] The Eosinophils) system which ge nerated this result tra nsmitted reference range : <=4.0. The reference r ozzy was not used to int erpret this result as normal/abnormal . [facility] CenterGrcovdiQDFZTPWRNS3048-79-27 06:44:00 Test Item Value Reference Range Interpretation Comments Lymphocytes (test code = Lymphocytes) 21.3 20.0-40.0 [facility] CenterZxonqjuECJDVXMNZS4955-84-89 06:44:00 Test Item Value Reference Range Interpretation Comments Monocytes (test code = Monocytes) 2.7 2.0-12.0 [facility] CenterEynjnbzUAAKWRRMIX9072-10-45 06:44:00 Test Item Value Reference Range Interpretation Comments MPV (test code = MPV) 9.5 7.4-10.4 [facility] CenterHvlzsozLYNYNTHODH9537-34-91 06:44:00 Test Item Value Reference Range Interpretation Comments RDW (test code = RDW) 17.8 11.5-14.5 [facility] CenterZicowxfJJEZYLEMYI3207-65-49 06:44:00 Test Item Value Reference Range Interpretation Comments MCV (test code = MCV) 73.2 80.0-98.0 [facility] CenterJsbgmsnLEOBDMWIOM6836-80-43 06:44:00 Test Item Value Reference Range Interpretation Comments MCH (test code = MCH) 21.9 pg 27.0-31.0 [facility] CenterPyvluifKVREQGFSGC7980-16-71 06:44:00 Test Item Value Reference Range Interpretation Comments Hct (test code = Hct) 27.2 36.0-48.0 [facility] CenterQelydfpICSXAZECXP8934-83-44 06:44:00 Test Item Value Reference Range Interpretation Comments MCHC (test code = MCHC) 29.9 32.0-36.0 [facility]EbcnvudRXREBJFDCP0930-91-82 06:44:00 Test Item Value Reference Range Interpretation Comments Platelet (test code = Platelet) 400 133-450 [facility] CenterQjxgrguYGVZARHKXG5546-14-00 06:44:00 Test Item Value Reference Range Interpretation Comments WBC (test code = WBC) 12.4 3.7-10.4 [facility] UdirsjnWNIQPASKBU8246-27-15 06:44:00 Test Item Value Reference Range Interpretation Comments RBC (test code = RBC) 3.72 4.20-5.40 [facility] AgawlkaPDKBJFNZCC3458-89-10 06:44:00 Test Item Value Reference Range Interpretation Comments Hgb (test code = Hgb) 8.1 12.0-16.0 [facility] UctjidyBCDQQHQJKA5802-86-85 06:44:00 Test Item Value Reference Range Interpretation Comments PTT (test code = PTT) 27.2 s 22.9-35.8 [facility] AtqnkvpBFTVGMXMTC7099-44-53 06:44:00 Test Item Value Reference Range Interpretation Comments PT (test code = PT) 14.7 s 12.0-14.7 [facility] ZkeccxzPDMCLCVTRX4226-50-18 06:44:00 Test Item Value Reference Range Interpretation Comments INR (test code = INR) 1.12 0.85-1.17 [facility] [employer] [id number] 06:44:00 Test Item Value Reference Range Interpretation Comments Antibody Scrn (test Negative (02/13/16 1:44 code = Antibody Scrn) AM) [facility] [employer] [id number] 06:44:00 Test Item Value Reference Range Interpretation Comments ABO/Rh (test code = ABO/Rh) A POS [facility] [employer]2016-07-03 06:44:00 Test Item Value Reference Range Interpretation Comments CK MB Index (test 1.6 See_Comment [Automate d message] The code = CK MB Index) system w [facility] generated this result transmit gaye reference range : <=2.5. The reference range was not used to interpr et this result as satish l/abnormal. [employer]2016-07-03 06:44:00 Test Item Value Reference Range Interpretation Comments CK MB (test code = CK MB) 0.9 0.5-3.6 [facility] [id number] 06:44:00 Test Item Value Reference Range Interpretation Comments Total CK (test code = Total CK) 57 12-191 [facility]TragaraM[facility] [id number] 06:44:00 Test Item Value Reference Range Interpretation Comments Troponin-I (test code no gt See_Comment [Auto mated message] The = Troponin-I) system which g enerated this result transmit gaye reference range : <=0.40. The reference r ozzy was not used to interpr et this result as satish l/abnormal. [facility] [employer] [id number] 06:44:00 Test Item Value Reference Range Interpretation Comments Albumin Lvl (test code = Albumin Lvl) 3.5 3.5-5.0 [facility] [employer] [id number] 06:44:00 Test Item Value Reference Range Interpretation Comments Total Protein (test code = Total 7.0 6.4-8.4 Protein) [facility] Center[facility] [id number] 06:44:00 Test Item Value Reference Range Interpretation Comments ALT (test code = ALT) 19 See_Comment [Auto mated message] The system which ge nerated this result transmit gaye reference range : <=65. The reference range was not used to interpr et this result as satish l/abnormal. [facility] [employer] IYKKX1747-39-07 06:44:00 Test Item Value Reference Range Interpretation Comments AST (test code = AST) 10 See_Comment [Auto mated message] The system which ge nerated this result transmit gaye reference range : <=37. The reference range was not used to interpr et this result as satish l/abnormal. [facility] [employer]2016-07-03 06:44:00 Test Item Value Reference Range Interpretation Comments Alk Phos (test code = Alk Phos) 79 39-136 [facility] [employer] [id number] 06:44:00 Test Item Value Reference Range Interpretation Comments Bili Total (test code = Bili Total) 0.4 0.2-1.3 [facility] [employer] HCKLJ9375-10-03 06:44:00 Test Item Value Reference Range Interpretation Comments Bili Direct (test code 0.1 See_Comment [Aut omated message] The = Bili Direct) system which generated this result tra nsmitted reference range : <=0.3. The reference r ozzy was not used to int erpret this result as satish l/abnormal. [place] 670646-07-03 06:44:00 Test Item Value Reference Range Interpretation Comments Globulin (test code = Globulin) 3.5 2.0-4.0 [facility]2016-07-03 06:44:00 Test Item Value Reference Range Interpretation Comments A/G Ratio (test code = A/G Ratio) 1.0 0.7-1.6 [place] 670646-07-03 06:44:00 Test Item Value Reference Range Interpretation Comments Bili Indirect (test 0.3 See_Comment [Automa gaye message] The code = Bili Indirect) system which generated this result tra nsmitted reference range : <=1.0. The reference r ozzy was not used to int erpret this result as normal/abnormal . [facility]2016-07-03 06:44:00 Test Item Value Reference Range Interpretation Comments eGFR (test code = eGFR) 107 [facility]2016-07-03 06:44:00 Test Item Value Reference Range Interpretation Comments BUN (test code = BUN) 8 7-22 [facility]2016-07-03 06:44:00 Test Item Value Reference Range Interpretation Comments Glucose Lvl (test code = Glucose Lvl) 91 70-99 [facility]2016-07-03 06:44:00 Test Item Value Reference Range Interpretation Comments Sodium Lvl (test code = Sodium Lvl) 138 135-145 [facility]2016-07-03 06:44:00 Test Item Value Reference Range Interpretation Comments Creatinine Lvl (test code = Creatinine 0.70 0.50-1.40 Lvl) [facility]2016-07-03 06:44:00 Test Item Value Reference Range Interpretation Comments Potassium Lvl (test code = Potassium 3.3 3.5-5.1 Lvl) [facility]2016-07-03 06:44:00 Test Item Value Reference Range Interpretation Comments CO2 (test code = CO2) 25 24-32 [place] 670646-07-03 06:44:00 Test Item Value Reference Range Interpretation Comments Chloride Lvl (test code = Chloride Lvl) 106 95-109 [facility]2016-07-03 06:44:00 Test Item Value Reference Range Interpretation Comments Calcium Lvl (test code = Calcium Lvl) 8.1 8.5-10.5 [facility]2016-07-03 06:44:00 Test Item Value Reference Range Interpretation Comments AGAP (test code = AGAP) 10.3 10.0-20.0 [facility]2016-07-03 06:44:00 Test Item Value Reference Range Interpretation Comments Magnesium Lvl (test code = Magnesium 2.2 1.8-2.4 Lvl) [facility] HospitalQimmhaeZOEQFCAWVBPDR7957-10-38 06:44:00 Test Item Value Reference Range Interpretation Comments S Preg (test code = S Negative *NA*(02/13/16 Preg) 1:44 AM) [facility] CenterFfuckppKMPPURENLU0556-99-16 06:44:00 Test Item Value Reference Range Interpretation Comments Basophils (test code = 0.1 See_Comment [Aut omated message] The Basophils) system which ge nerated this result tra nsmitted reference range : <=1.0. The reference r ozzy was not used to int erpret this result as normal/abnormal . [facility] CenterTtrurslVHEFXNJJAC8840-29-08 06:44:00 Test Item Value Reference Range Interpretation Comments Monocytes # (test code 0.3 See_Comment [Aut omated message] The = Monocytes #) system which generated this result tra nsmitted reference range : <=0.8. The reference r ozzy was not used to int erpret this result as normal/abnormal . [facility] CenterZeaunbjFPDUFJBOWQ5347-19-99 06:44:00 Test Item Value Reference Range Interpretation Comments Eosinophils # (test code 0.1 See_Comment [A utomated message] The = Eosinophils #) system whic h generated this result tra nsmitted reference range : <=0.5. The reference r ozzy was not used to int erpret this result as normal/abnormal . [facility] CenterOsrmktpZEOFHTZXUR4101-48-15 06:44:00 Test Item Value Reference Range Interpretation Comments Segs-Bands # (test code = Segs-Bands #) 9.3 1.5-8.1 [facility] CenterFklomyuPWVKWGWPWE7834-87-74 06:44:00 Test Item Value Reference Range Interpretation Comments Lymphocytes # (test code = Lymphocytes 2.6 1.0-5.5 #) [facility] CenterPoilzkxDIZQHTQYBI4426-34-86 06:44:00 Test Item Value Reference Range Interpretation Comments Basophils # (test code 0.0 See_Comment [Aut omated message] The = Basophils #) system which generated this result tra nsmitted reference range : <=0.2. The reference r ozzy was not used to int erpret this result as normal/abnormal . [facility] CenterUalibkoRZOFOFPNUS5166-05-37 06:44:00 Test Item Value Reference Range Interpretation Comments Microcyte (test code = 1+ *ABN*(02/13/16 1:44 Microcyte) AM) [facility] CenterLrtofnbEGLZQZITTZ0205-38-11 06:44:00 Test Item Value Reference Range Interpretation Comments Giant Plt (test code Moderate *ABN*(02/13/16 = Giant Plt) 1:44 AM) [facility] CenterBztdmuuWPWFCCCWWB0330-36-23 06:44:00 Test Item Value Reference Range Interpretation Comments Segs (test code = Segs) 75.2 45.0-75.0 [facility] CenterBnxooepLBNICFMRZU7845-13-28 06:44:00 Test Item Value Reference Range Interpretation Comments Hypochrom (test code = 1+ (02/13/16 1:44 AM) Hypochrom) [facility] CenterZizbzdfLNCHYNQKCF4303-70-37 06:44:00 Test Item Value Reference Range Interpretation Comments Eosinophils (test code = 0.7 See_Comment [A utomated message] The Eosinophils) system which ge nerated this result tra nsmitted reference range : <=4.0. The reference r ozzy was not used to int erpret this result as normal/abnormal . [facility] CenterFvuorzvVSYZPQBRQK8333-55-01 06:44:00 Test Item Value Reference Range Interpretation Comments Lymphocytes (test code = Lymphocytes) 21.3 20.0-40.0 [facility] CenterNgxvaaqOXOFRJGACV7784-31-92 06:44:00 Test Item Value Reference Range Interpretation Comments Monocytes (test code = Monocytes) 2.7 2.0-12.0 [facility] CenterFdglbikLNLBUMHWTP6397-61-62 06:44:00 Test Item Value Reference Range Interpretation Comments MPV (test code = MPV) 9.5 7.4-10.4 [facility] CenterJtjgeplGHXYFTJFTB8469-57-32 06:44:00 Test Item Value Reference Range Interpretation Comments RDW (test code = RDW) 17.8 11.5-14.5 [facility] CenterWxjeaxbYJAZCEQEGT9142-33-07 06:44:00 Test Item Value Reference Range Interpretation Comments MCV (test code = MCV) 73.2 80.0-98.0 [facility] CenterYhjuxerHDFDGFSPPN7517-11-09 06:44:00 Test Item Value Reference Range Interpretation Comments MCH (test code = MCH) 21.9 pg 27.0-31.0 [facility] CenterKxczeshDIUOAESSRU0052-44-16 06:44:00 Test Item Value Reference Range Interpretation Comments Hct (test code = Hct) 27.2 36.0-48.0 [facility] CenterDnegdtyUUSLJAVHWN0588-83-55 06:44:00 Test Item Value Reference Range Interpretation Comments MCHC (test code = MCHC) 29.9 32.0-36.0 [facility] CenterQthedjmDHGLCFOGJO0414-41-60 06:44:00 Test Item Value Reference Range Interpretation Comments Platelet (test code = Platelet) 400 133-450 [facility] CenterZwvdspaBSYJWXKEBU8324-76-63 06:44:00 Test Item Value Reference Range Interpretation Comments WBC (test code = WBC) 12.4 3.7-10.4 [facility] CenterAggnvrmLTIULHACAP1029-37-75 06:44:00 Test Item Value Reference Range Interpretation Comments RBC (test code = RBC) 3.72 4.20-5.40 [facility] CenterFjvwqyqXLATZJZDBS0692-18-12 06:44:00 Test Item Value Reference Range Interpretation Comments Hgb (test code = Hgb) 8.1 12.0-16.0 [facility] CenterWczxipmBEKNJNCVBP3228-62-73 06:44:00 Test Item Value Reference Range Interpretation Comments PTT (test code = PTT) 27.2 s 22.9-35.8 [facility] CenterNutvfqeSZCPBVOVGX0253-91-41 06:44:00 Test Item Value Reference Range Interpretation Comments PT (test code = PT) 14.7 s 12.0-14.7 [facility] CenterSqhwhdzEZTTSGONDD3933-97-02 06:44:00 Test Item Value Reference Range Interpretation Comments INR (test code = INR) 1.12 0.85-1.17 [facility] BPSMQQT4120-64-58 06:44:00 Test Item Value Reference Range Interpretation Comments Antibody Scrn (test Negative (02/13/16 1:44 code = Antibody Scrn) AM) [facility] IPVXIXG3773-16-24 06:44:00 Test Item Value Reference Range Interpretation Comments ABO/Rh (test code = ABO/Rh) A POS [employer]2016-07-03 06:44:00 Test Item Value Reference Range Interpretation Comments CK MB Index (test 1.6 See_Comment [Automate d message] The code = CK MB Index) system w [facility] generated this result transmit gaye reference range : <=2.5. The reference range was not used to interpr et this result as satish l/abnormal. [employer]2016-07-03 06:44:00 Test Item Value Reference Range Interpretation Comments CK MB (test code = CK MB) 0.9 0.5-3.6 [employer]2016-07-03 06:44:00 Test Item Value Reference Range Interpretation Comments Total CK (test code = Total CK) 57 12-191 [employer]2016-07-03 06:44:00 Test Item Value Reference Range Interpretation Comments Troponin-I (test code no gt See_Comment [Auto mated message] The = Troponin-I) system which g enerated this result transmit gaye reference range : <=0.40. The reference r ozzy was not used to interpr et this result as satish l/abnormal. [employer]2016-07-03 06:44:00 Test Item Value Reference Range Interpretation Comments Albumin Lvl (test code = Albumin Lvl) 3.5 3.5-5.0 [employer]2016-07-03 06:44:00 Test Item Value Reference Range Interpretation Comments Total Protein (test code = Total 7.0 6.4-8.4 Protein) [employer]2016-07-03 06:44:00 Test Item Value Reference Range Interpretation Comments ALT (test code = ALT) 19 See_Comment [Auto mated message] The system which ge nerated this result transmit gaye reference range : <=65. The reference range was not used to interpr et this result as satish l/abnormal. [place] 670646-07-03 06:44:00 Test Item Value Reference Range Interpretation Comments AST (test code = AST) 10 See_Comment [Auto mated message] The system which ge nerated this result transmit gaye reference range : <=37. The reference range was not used to interpr et this result as satish l/abnormal. [place] 670646-07-03 06:44:00 Test Item Value Reference Range Interpretation Comments Alk Phos (test code = Alk Phos) 79 39-136 [facility]2016-07-03 06:44:00 Test Item Value Reference Range Interpretation Comments Bili Total (test code = Bili Total) 0.4 0.2-1.3 [place] 670646-07-03 06:44:00 Test Item Value Reference Range Interpretation Comments Bili Direct (test code 0.1 See_Comment [Aut omated message] The = Bili Direct) system which generated this result tra nsmitted reference range : <=0.3. The reference r ozzy was not used to int erpret this result as satish l/abnormal. [facility]2016-07-03 06:44:00 Test Item Value Reference Range Interpretation Comments Globulin (test code = Globulin) 3.5 2.0-4.0 [place] 670646-07-03 06:44:00 Test Item Value Reference Range Interpretation Comments A/G Ratio (test code = A/G Ratio) 1.0 0.7-1.6 [place] 670646-07-03 06:44:00 Test Item Value Reference Range Interpretation Comments Bili Indirect (test 0.3 See_Comment [Automa gaye message] The code = Bili Indirect) system which generated this result tra nsmitted reference range : <=1.0. The reference r ozzy was not used to int erpret this result as normal/abnormal . [facility]2016-07-03 06:44:00 Test Item Value Reference Range Interpretation Comments eGFR (test code = eGFR) 107 [place] 670646-07-03 06:44:00 Test Item Value Reference Range Interpretation Comments BUN (test code = BUN) 8 7-22 [place] 670646-07-03 06:44:00 Test Item Value Reference Range Interpretation Comments Glucose Lvl (test code = Glucose Lvl) 91 70-99 [facility]2016-07-03 06:44:00 Test Item Value Reference Range Interpretation Comments Sodium Lvl (test code = Sodium Lvl) 138 135-145 [facility]2016-07-03 06:44:00 Test Item Value Reference Range Interpretation Comments Creatinine Lvl (test code = Creatinine 0.70 0.50-1.40 Lvl) [facility]2016-07-03 06:44:00 Test Item Value Reference Range Interpretation Comments Potassium Lvl (test code = Potassium 3.3 3.5-5.1 Lvl) [facility]2016-07-03 06:44:00 Test Item Value Reference Range Interpretation Comments CO2 (test code = CO2) 25 24-32 [facility]2016-07-03 06:44:00 Test Item Value Reference Range Interpretation Comments Chloride Lvl (test code = Chloride Lvl) 106 95-109 [facility]2016-07-03 06:44:00 Test Item Value Reference Range Interpretation Comments Calcium Lvl (test code = Calcium Lvl) 8.1 8.5-10.5 [facility]2016-07-03 06:44:00 Test Item Value Reference Range Interpretation Comments AGAP (test code = AGAP) 10.3 10.0-20.0 [facility]2016-07-03 06:44:00 Test Item Value Reference Range Interpretation Comments Magnesium Lvl (test code = Magnesium 2.2 1.8-2.4 Lvl) [facility]2951[facility]59 06:44:00 Test Item Value Reference Range Interpretation Comments S Preg (test code = S Negative *NA*(02/13/16 Preg) 1:44 AM) [facility] CenterIxupfwlGGMHLTLELL6514-56-16 06:44:00 Test Item Value Reference Range Interpretation Comments Basophils (test code = 0.1 See_Comment [Aut omated message] The Basophils) system which ge nerated this result tra nsmitted reference range : <=1.0. The reference r ozzy was not used to int erpret this result as normal/abnormal . [facility] CenterWolgamqAKQMVUPRFX7234-89-08 06:44:00 Test Item Value Reference Range Interpretation Comments Monocytes # (test code 0.3 See_Comment [Aut omated message] The = Monocytes #) system which generated this result tra nsmitted reference range : <=0.8. The reference r ozzy was not used to int erpret this result as normal/abnormal . [facility] CenterCrctcvfJBTAWOZNTQ0756-94-85 06:44:00 Test Item Value Reference Range Interpretation Comments Eosinophils # (test code 0.1 See_Comment [A utomated message] The = Eosinophils #) system whic h generated this result tra nsmitted reference range : <=0.5. The reference r ozzy was not used to int erpret this result as normal/abnormal . [facility] CenterWhbfnliNAJNJQDITU5857-67-12 06:44:00 Test Item Value Reference Range Interpretation Comments Segs-Bands # (test code = Segs-Bands #) 9.3 1.5-8.1 [facility] CenterQmqyfnjMDUFWVZYAZ0190-46-76 06:44:00 Test Item Value Reference Range Interpretation Comments Lymphocytes # (test code = Lymphocytes 2.6 1.0-5.5 #) [facility] CenterWnqlxymEIYSPKAYXD0436-21-88 06:44:00 Test Item Value Reference Range Interpretation Comments Basophils # (test code 0.0 See_Comment [Aut omated message] The = Basophils #) system which generated this result tra nsmitted reference range : <=0.2. The reference r ozzy was not used to int erpret this result as normal/abnormal . [facility] CenterJrkavzeGSNJHEJXVY8846-12-53 06:44:00 Test Item Value Reference Range Interpretation Comments Microcyte (test code = 1+ *ABN*(02/13/16 1:44 Microcyte) AM) [facility] CenterCiubgglZPYEOGIWTH2256-75-84 06:44:00 Test Item Value Reference Range Interpretation Comments Giant Plt (test code Moderate *ABN*(02/13/16 = Giant Plt) 1:44 AM) [facility] CenterVwnoabyQOKAYWEMXN9232-85-86 06:44:00 Test Item Value Reference Range Interpretation Comments Segs (test code = Segs) 75.2 45.0-75.0 [facility] CenterDxjrepzWBXRKUBZJI4350-09-18 06:44:00 Test Item Value Reference Range Interpretation Comments Hypochrom (test code = 1+ (02/13/16 1:44 AM) Hypochrom) [facility] CenterTcvkwmgHEUMCVSRXT5476-45-43 06:44:00 Test Item Value Reference Range Interpretation Comments Eosinophils (test code = 0.7 See_Comment [A utomated message] The Eosinophils) system which ge nerated this result tra nsmitted reference range : <=4.0. The reference r ozzy was not used to int erpret this result as normal/abnormal . [facility]IkguinkACNTRFLFFY9745-22-97 06:44:00 Test Item Value Reference Range Interpretation Comments Lymphocytes (test code = Lymphocytes) 21.3 20.0-40.0 [facility] CenterBxcpwzvGVHLJXMBCH8526-56-95 06:44:00 Test Item Value Reference Range Interpretation Comments Monocytes (test code = Monocytes) 2.7 2.0-12.0 [facility] CenterRdczplaWCSWUNWFKW4075-03-12 06:44:00 Test Item Value Reference Range Interpretation Comments MPV (test code = MPV) 9.5 7.4-10.4 [facility] CenterUllshjmITIOUNTATS1171-99-70 06:44:00 Test Item Value Reference Range Interpretation Comments RDW (test code = RDW) 17.8 11.5-14.5 [facility] CenterJlskdooJIKGCLCUQR9484-30-43 06:44:00 Test Item Value Reference Range Interpretation Comments MCV (test code = MCV) 73.2 80.0-98.0 [facility] CenterNiritjvRSGYFUGLCE7305-26-70 06:44:00 Test Item Value Reference Range Interpretation Comments MCH (test code = MCH) 21.9 pg 27.0-31.0 [facility] CenterVawdzmwKMJKIWXERB2574-40-34 06:44:00 Test Item Value Reference Range Interpretation Comments Hct (test code = Hct) 27.2 36.0-48.0 [facility] CenterRnqvjkbRHVBUNHGAF7955-94-24 06:44:00 Test Item Value Reference Range Interpretation Comments MCHC (test code = MCHC) 29.9 32.0-36.0 [facility] CenterHhzomkiSZUYTLCSCZ2636-69-61 06:44:00 Test Item Value Reference Range Interpretation Comments Platelet (test code = Platelet) 400 133-450 [facility] CenterWxikgdqEMUBMOXVYS3109-15-00 06:44:00 Test Item Value Reference Range Interpretation Comments WBC (test code = WBC) 12.4 3.7-10.4 [facility] CenterVosidqyTAVYMQWTBZ2718-02-96 06:44:00 Test Item Value Reference Range Interpretation Comments RBC (test code = RBC) 3.72 4.20-5.40 [facility] BhfvwjbAHBDOYHHYT3093-72-46 06:44:00 Test Item Value Reference Range Interpretation Comments Hgb (test code = Hgb) 8.1 12.0-16.0 [facility]GpdfmxpCBKKCVZGIL8022-26-94 06:44:00 Test Item Value Reference Range Interpretation Comments PTT (test code = PTT) 27.2 s 22.9-35.8 [facility] QpvnjsgHARZRKPSXP0511-11-12 06:44:00 Test Item Value Reference Range Interpretation Comments PT (test code = PT) 14.7 s 12.0-14.7 [facility] WqpagwlSFAXFVOUJU7582-03-55 06:44:00 Test Item Value Reference Range Interpretation Comments INR (test code = INR) 1.12 0.85-1.17 [facility] [employer] [id number] 06:44:00 Test Item Value Reference Range Interpretation Comments Antibody Scrn (test Negative (02/13/16 1:44 code = Antibody Scrn) AM) [facility] [employer] [id number] 06:44:00 Test Item Value Reference Range Interpretation Comments ABO/Rh (test code = ABO/Rh) A POS [facility] [employer]2016-07-03 06:44:00 Test Item Value Reference Range Interpretation Comments CK MB Index (test 1.6 See_Comment [Automate d message] The code = CK MB Index) system w [facility] generated this result transmit gaye reference range : <=2.5. The reference range was not used to interpr et this result as satish l/abnormal. [employer]2016-07-03 06:44:00 Test Item Value Reference Range Interpretation Comments CK MB (test code = CK MB) 0.9 0.5-3.6 [facility] [employer]2016-07-03 06:44:00 Test Item Value Reference Range Interpretation Comments Total CK (test code = Total CK) 57 12-191 [facility] [employer]2016-07-03 06:44:00 Test Item Value Reference Range Interpretation Comments Troponin-I (test code no gt See_Comment [Auto mated message] The = Troponin-I) system which g enerated this result transmit gaye reference range : <=0.40. The reference r ozzy was not used to interpr et this result as satish l/abnormal. [place] 670646-07-03 06:44:00 Test Item Value Reference Range Interpretation Comments Albumin Lvl (test code = Albumin Lvl) 3.5 3.5-5.0 [place] 670646-07-03 06:44:00 Test Item Value Reference Range Interpretation Comments Total Protein (test code = Total 7.0 6.4-8.4 Protein) [place] 670646-07-03 06:44:00 Test Item Value Reference Range Interpretation Comments ALT (test code = ALT) 19 See_Comment [Auto mated message] The system which ge nerated this result transmit gaye reference range : <=65. The reference range was not used to interpr et this result as satish l/abnormal. [place] 670646-07-03 06:44:00 Test Item Value Reference Range Interpretation Comments AST (test code = AST) 10 See_Comment [Auto mated message] The system which ge nerated this result transmit gaye reference range : <=37. The reference range was not used to interpr et this result as satish l/abnormal. [facility]2016-07-03 06:44:00 Test Item Value Reference Range Interpretation Comments Alk Phos (test code = Alk Phos) 79 39-136 [facility]2016-07-03 06:44:00 Test Item Value Reference Range Interpretation Comments Bili Total (test code = Bili Total) 0.4 0.2-1.3 [facility]2016-07-03 06:44:00 Test Item Value Reference Range Interpretation Comments Bili Direct (test code 0.1 See_Comment [Aut omated message] The = Bili Direct) system which generated this result tra nsmitted reference range : <=0.3. The reference r ozzy was not used to int erpret this result as satish l/abnormal. [facility]2016-07-03 06:44:00 Test Item Value Reference Range Interpretation Comments Globulin (test code = Globulin) 3.5 2.0-4.0 [place] 670646-07-03 06:44:00 Test Item Value Reference Range Interpretation Comments A/G Ratio (test code = A/G Ratio) 1.0 0.7-1.6 [facility]2016-07-03 06:44:00 Test Item Value Reference Range Interpretation Comments Bili Indirect (test 0.3 See_Comment [Automa gaye message] The code = Bili Indirect) system which generated this result tra nsmitted reference range : <=1.0. The reference r ozzy was not used to int erpret this result as normal/abnormal . [facility]2016-07-03 06:44:00 Test Item Value Reference Range Interpretation Comments eGFR (test code = eGFR) 107 [facility]2016-07-03 06:44:00 Test Item Value Reference Range Interpretation Comments BUN (test code = BUN) 8 7-22 [facility]2016-07-03 06:44:00 Test Item Value Reference Range Interpretation Comments Glucose Lvl (test code = Glucose Lvl) 91 70-99 [facility]2016-07-03 06:44:00 Test Item Value Reference Range Interpretation Comments Sodium Lvl (test code = Sodium Lvl) 138 135-145 [facility]2016-07-03 06:44:00 Test Item Value Reference Range Interpretation Comments Creatinine Lvl (test code = Creatinine 0.70 0.50-1.40 Lvl) [facility]2016-07-03 06:44:00 Test Item Value Reference Range Interpretation Comments Potassium Lvl (test code = Potassium 3.3 3.5-5.1 Lvl) [facility]2016-07-03 06:44:00 Test Item Value Reference Range Interpretation Comments CO2 (test code = CO2) 25 24-32 [facility]2016-07-03 06:44:00 Test Item Value Reference Range Interpretation Comments Chloride Lvl (test code = Chloride Lvl) 106 95-109 [facility]2016-07-03 06:44:00 Test Item Value Reference Range Interpretation Comments Calcium Lvl (test code = Calcium Lvl) 8.1 8.5-10.5 [facility]2016-07-03 06:44:00 Test Item Value Reference Range Interpretation Comments AGAP (test code = AGAP) 10.3 10.0-20.0 [facility]2016-07-03 06:44:00 Test Item Value Reference Range Interpretation Comments Magnesium Lvl (test code = Magnesium 2.2 1.8-2.4 Lvl) [place] 53448016-07-03 06:44:00 Test Item Value Reference Range Interpretation Comments S Preg (test code = S Negative *NA*(02/13/16 Preg) 1:44 AM) [facility]ZtbbijqMYUERVDQKJ4143-06-38 06:44:00 Test Item Value Reference Range Interpretation Comments Basophils (test code = 0.1 See_Comment [Aut omated message] The Basophils) system which ge nerated this result tra nsmitted reference range : <=1.0. The reference r ozzy was not used to int erpret this result as normal/abnormal . [facility] CenterLxjzqffXLUQGTFXTI8691-80-11 06:44:00 Test Item Value Reference Range Interpretation Comments Monocytes # (test code 0.3 See_Comment [Aut omated message] The = Monocytes #) system which generated this result tra nsmitted reference range : <=0.8. The reference r ozzy was not used to int erpret this result as normal/abnormal . [facility] CenterGrorebdTYQMSGEQVX4812-37-31 06:44:00 Test Item Value Reference Range Interpretation Comments Eosinophils # (test code 0.1 See_Comment [A utomated message] The = Eosinophils #) system whic h generated this result tra nsmitted reference range : <=0.5. The reference r ozzy was not used to int erpret this result as normal/abnormal . [facility] CenterObaitllSFALNEQFWV8878-58-05 06:44:00 Test Item Value Reference Range Interpretation Comments Segs-Bands # (test code = Segs-Bands #) 9.3 1.5-8.1 [facility] CenterOrpvgosNGODEMTKTB8235-08-29 06:44:00 Test Item Value Reference Range Interpretation Comments Lymphocytes # (test code = Lymphocytes 2.6 1.0-5.5 #) [facility] CenterIszvmlxLRVDZFESGS3059-22-13 06:44:00 Test Item Value Reference Range Interpretation Comments Basophils # (test code 0.0 See_Comment [Aut omated message] The = Basophils #) system which generated this result tra nsmitted reference range : <=0.2. The reference r ozzy was not used to int erpret this result as normal/abnormal . [facility] CenterYrypmzhFZRLSQMWCZ1604-58-68 06:44:00 Test Item Value Reference Range Interpretation Comments Microcyte (test code = 1+ *ABN*(02/13/16 1:44 Microcyte) AM) [facility] CenterRyausfbSNBJBFLPTM6195-20-67 06:44:00 Test Item Value Reference Range Interpretation Comments Giant Plt (test code Moderate *ABN*(02/13/16 = Giant Plt) 1:44 AM) [facility] CenterQjhsopjYNHQRFNYRU8102-81-72 06:44:00 Test Item Value Reference Range Interpretation Comments Segs (test code = Segs) 75.2 45.0-75.0 [facility] CenterYgorkgfSJBBKHVATQ5452-61-72 06:44:00 Test Item Value Reference Range Interpretation Comments Hypochrom (test code = 1+ (02/13/16 1:44 AM) Hypochrom) [facility] CenterIeoahaiETVGYKOMJO2500-98-15 06:44:00 Test Item Value Reference Range Interpretation Comments Eosinophils (test code = 0.7 See_Comment [A utomated message] The Eosinophils) system which ge nerated this result tra nsmitted reference range : <=4.0. The reference r ozzy was not used to int erpret this result as normal/abnormal . [facility] CenterYnwuxqxOKZLMKDWIT3915-19-19 06:44:00 Test Item Value Reference Range Interpretation Comments Lymphocytes (test code = Lymphocytes) 21.3 20.0-40.0 [facility] CenterLrxhxwbUZEPQBFEHX0621-69-12 06:44:00 Test Item Value Reference Range Interpretation Comments Monocytes (test code = Monocytes) 2.7 2.0-12.0 [facility] CenterUmqhditRZPTERXCGL9620-41-29 06:44:00 Test Item Value Reference Range Interpretation Comments MPV (test code = MPV) 9.5 7.4-10.4 [facility] CenterVrzjfvjVOWJOAMZLC3442-24-06 06:44:00 Test Item Value Reference Range Interpretation Comments RDW (test code = RDW) 17.8 11.5-14.5 [facility] CenterRenhhkqLVXZOPIJHZ7181-20-61 06:44:00 Test Item Value Reference Range Interpretation Comments MCV (test code = MCV) 73.2 80.0-98.0 [facility] CenterWggcxbhNGKVTOFGCY7463-28-11 06:44:00 Test Item Value Reference Range Interpretation Comments MCH (test code = MCH) 21.9 pg 27.0-31.0 [facility] CenterXjcseqnTBWCXADPLU4186-04-52 06:44:00 Test Item Value Reference Range Interpretation Comments Hct (test code = Hct) 27.2 36.0-48.0 [facility]VtahdjxKAKXGDXWKZ1348-57-48 06:44:00 Test Item Value Reference Range Interpretation Comments MCHC (test code = MCHC) 29.9 32.0-36.0 [facility] HospitalVgihpteGMXKHOZASX5961-69-25 06:44:00 Test Item Value Reference Range Interpretation Comments Platelet (test code = Platelet) 400 133-450 [facility]YCVUCIHJMV1819-[facility]-32 06:44:00 Test Item Value Reference Range Interpretation Comments WBC (test code = WBC) 12.4 3.7-10.4 [facility] HospitalBltzafmGEOHOKPYDS4962-17-35 06:44:00 Test Item Value Reference Range Interpretation Comments RBC (test code = RBC) 3.72 4.20-5.40 [facility] HospitalGgysiitIIBIQZIJQD9274-90-44 06:44:00 Test Item Value Reference Range Interpretation Comments Hgb (test code = Hgb) 8.1 12.0-16.0 [facility] HospitalUgyufmrMYYXSZPTPT0515-71-92 06:44:00 Test Item Value Reference Range Interpretation Comments PTT (test code = PTT) 27.2 s 22.9-35.8 [facility] HospitalYzctpfvWXNGDBAYWC1060-63-57 06:44:00 Test Item Value Reference Range Interpretation Comments PT (test code = PT) 14.7 s 12.0-14.7 [facility] HospitalVbpcbwfBFTHUTHPXG3031-61-51 06:44:00 Test Item Value Reference Range Interpretation Comments INR (test code = INR) 1.12 0.85-1.17 [facility] [employer] [id number] 06:44:00 Test Item Value Reference Range Interpretation Comments Antibody Scrn (test Negative (02/13/16 1:44 code = Antibody Scrn) AM) [facility] [employer] BANK [id number] 06:44:00 Test Item Value Reference Range Interpretation Comments ABO/Rh (test code = ABO/Rh) A POS [facility] Dering HallannCARDIAC [id number] 06:44:00 Test Item Value Reference Range Interpretation Comments CK MB Index (test 1.6 See_Comment [Automate d message] The code = CK MB Index) system w [facility] generated this result transmit gaye reference range : <=2.5. The reference range was not used to interpr et this result as satish l/abnormal. [facility] CenterTransition Therapeutics HZNMBWA1640-24-26 06:44:00 Test Item Value Reference Range Interpretation Comments CK MB (test code = CK MB) 0.9 0.5-3.6 [facility] HospitalCalmSea PAUZKSP3581-29-71 06:44:00 Test Item Value Reference Range Interpretation Comments Total CK (test code = Total CK) 57 12-191 [facility] Center[facility] IZSMMBE6647-81-67 06:44:00 Test Item Value Reference Range Interpretation Comments Troponin-I (test code no gt See_Comment [Auto mated message] The = Troponin-I) system which g enerated this result transmit gaye reference range : <=0.40. The reference r ozzy was not used to interpr et this result as satish l/abnormal. [facility] [employer]2016-07-03 06:44:00 Test Item Value Reference Range Interpretation Comments Albumin Lvl (test code = Albumin Lvl) 3.5 3.5-5.0 [facility] [employer]2016-07-03 06:44:00 Test Item Value Reference Range Interpretation Comments Total Protein (test code = Total 7.0 6.4-8.4 Protein) [facility] [employer]2016-07-03 06:44:00 Test Item Value Reference Range Interpretation Comments ALT (test code = ALT) 19 See_Comment [Auto mated message] The system which ge nerated this result transmit gaye reference range : <=65. The reference range was not used to interpr et this result as satish l/abnormal. [facility] [employer]2016-07-03 06:44:00 Test Item Value Reference Range Interpretation Comments AST (test code = AST) 10 See_Comment [Auto mated message] The system which ge nerated this result transmit gaye reference range : <=37. The reference range was not used to interpr et this result as satish l/abnormal. [facility] [employer]2016-07-03 06:44:00 Test Item Value Reference Range Interpretation Comments Alk Phos (test code = Alk Phos) 79 39-136 [facility] [employer] [id number] 06:44:00 Test Item Value Reference Range Interpretation Comments Bili Total (test code = Bili Total) 0.4 0.2-1.3 [facility]2016-07-03 06:44:00 Test Item Value Reference Range Interpretation Comments Bili Direct (test code 0.1 See_Comment [Aut omated message] The = Bili Direct) system which generated this result tra nsmitted reference range : <=0.3. The reference r ozzy was not used to int erpret this result as satish l/abnormal. [facility]2016-07-03 06:44:00 Test Item Value Reference Range Interpretation Comments Globulin (test code = Globulin) 3.5 2.0-4.0 [facility]2016-07-03 06:44:00 Test Item Value Reference Range Interpretation Comments A/G Ratio (test code = A/G Ratio) 1.0 0.7-1.6 [place] 670646-07-03 06:44:00 Test Item Value Reference Range Interpretation Comments Bili Indirect (test 0.3 See_Comment [Automa gaye message] The code = Bili Indirect) system which generated this result tra nsmitted reference range : <=1.0. The reference r ozzy was not used to int erpret this result as normal/abnormal . [facility]2016-07-03 06:44:00 Test Item Value Reference Range Interpretation Comments eGFR (test code = eGFR) 107 [facility]2016-07-03 06:44:00 Test Item Value Reference Range Interpretation Comments BUN (test code = BUN) 8 7-22 [facility]2016-07-03 06:44:00 Test Item Value Reference Range Interpretation Comments Glucose Lvl (test code = Glucose Lvl) 91 70-99 [facility]2016-07-03 06:44:00 Test Item Value Reference Range Interpretation Comments Sodium Lvl (test code = Sodium Lvl) 138 135-145 [facility]2016-07-03 06:44:00 Test Item Value Reference Range Interpretation Comments Creatinine Lvl (test code = Creatinine 0.70 0.50-1.40 Lvl) [facility]2016-07-03 06:44:00 Test Item Value Reference Range Interpretation Comments Potassium Lvl (test code = Potassium 3.3 3.5-5.1 Lvl) [facility]2016-07-03 06:44:00 Test Item Value Reference Range Interpretation Comments CO2 (test code = CO2) 25 24-32 [facility]2016-07-03 06:44:00 Test Item Value Reference Range Interpretation Comments Chloride Lvl (test code = Chloride Lvl) 106 95-109 [facility]2016-07-03 06:44:00 Test Item Value Reference Range Interpretation Comments Calcium Lvl (test code = Calcium Lvl) 8.1 8.5-10.5 [facility]2016-07-03 06:44:00 Test Item Value Reference Range Interpretation Comments AGAP (test code = AGAP) 10.3 10.0-20.0 [facility]2016-07-03 06:44:00 Test Item Value Reference Range Interpretation Comments Magnesium Lvl (test code = Magnesium 2.2 1.8-2.4 Lvl) [place] 53448016-07-03 06:44:00 Test Item Value Reference Range Interpretation Comments S Preg (test code = S Negative *NA*(02/13/16 Preg) 1:44 AM) [facility]XzrmtpxDMSETRDNFU9128-40-15 06:44:00 Test Item Value Reference Range Interpretation Comments Basophils (test code = 0.1 See_Comment [Aut omated message] The Basophils) system which ge nerated this result tra nsmitted reference range : <=1.0. The reference r ozzy was not used to int erpret this result as normal/abnormal . [facility] CenterWcsxtluPOMIOZEXUW6745-21-96 06:44:00 Test Item Value Reference Range Interpretation Comments Monocytes # (test code 0.3 See_Comment [Aut omated message] The = Monocytes #) system which generated this result tra nsmitted reference range : <=0.8. The reference r ozzy was not used to int erpret this result as normal/abnormal . [facility] CenterUzuhpjqXEWNLBUPNR5787-27-04 06:44:00 Test Item Value Reference Range Interpretation Comments Eosinophils # (test code 0.1 See_Comment [A utomated message] The = Eosinophils #) system whic h generated this result tra nsmitted reference range : <=0.5. The reference r ozzy was not used to int erpret this result as normal/abnormal . [place] 472436-07-03 06:44:00 Test Item Value Reference Range Interpretation Comments Segs-Bands # (test code = Segs-Bands #) 9.3 1.5-8.1 [facility] CenterFnxuwobJZLYIGTTWT8591-07-12 06:44:00 Test Item Value Reference Range Interpretation Comments Lymphocytes # (test code = Lymphocytes 2.6 1.0-5.5 #) [facility] CenterLbkybfnXFVIPZWXPF5657-16-72 06:44:00 Test Item Value Reference Range Interpretation Comments Basophils # (test code 0.0 See_Comment [Aut omated message] The = Basophils #) system which generated this result tra nsmitted reference range : <=0.2. The reference r ozzy was not used to int erpret this result as normal/abnormal . [facility] CenterKzbbffbWPDTHUQYEV1879-49-37 06:44:00 Test Item Value Reference Range Interpretation Comments Microcyte (test code = 1+ *ABN*(02/13/16 1:44 Microcyte) AM) [facility] CenterHswpidqSQRTGLUBDM3552-09-16 06:44:00 Test Item Value Reference Range Interpretation Comments Giant Plt (test code Moderate *ABN*(02/13/16 = Giant Plt) 1:44 AM) [facility] CenterEgkmkmqYYVLERXGTG3089-70-94 06:44:00 Test Item Value Reference Range Interpretation Comments Segs (test code = Segs) 75.2 45.0-75.0 [facility] CenterCsjytiuOEGMTHSIEV3109-02-48 06:44:00 Test Item Value Reference Range Interpretation Comments Hypochrom (test code = 1+ (02/13/16 1:44 AM) Hypochrom) [facility] CenterJveeooqZKFINJOHDZ4878-44-82 06:44:00 Test Item Value Reference Range Interpretation Comments Eosinophils (test code = 0.7 See_Comment [A utomated message] The Eosinophils) system which ge nerated this result tra nsmitted reference range : <=4.0. The reference r ozzy was not used to int erpret this result as normal/abnormal . [facility] CenterVtkiavmWCCQSULFVS5982-77-91 06:44:00 Test Item Value Reference Range Interpretation Comments Lymphocytes (test code = Lymphocytes) 21.3 20.0-40.0 [facility] CenterGjceigdPABTAUTMDA8831-41-12 06:44:00 Test Item Value Reference Range Interpretation Comments Monocytes (test code = Monocytes) 2.7 2.0-12.0 [facility] CenterSvqhtdoIESUGUGJHJ5678-04-30 06:44:00 Test Item Value Reference Range Interpretation Comments MPV (test code = MPV) 9.5 7.4-10.4 [facility] CenterIwotirtMPYYEFBMHY1461-63-20 06:44:00 Test Item Value Reference Range Interpretation Comments RDW (test code = RDW) 17.8 11.5-14.5 [facility] CenterPyabuhjRPYIDHYHTJ3442-43-63 06:44:00 Test Item Value Reference Range Interpretation Comments MCV (test code = MCV) 73.2 80.0-98.0 [facility] CenterGbpfohoUTGAWUFFNO1957-35-90 06:44:00 Test Item Value Reference Range Interpretation Comments MCH (test code = MCH) 21.9 pg 27.0-31.0 [facility] CenterBoayspnLVBUCVKDVS4937-12-01 06:44:00 Test Item Value Reference Range Interpretation Comments Hct (test code = Hct) 27.2 36.0-48.0 [facility] CenterPzmeghbTKSHSORYEB1545-15-55 06:44:00 Test Item Value Reference Range Interpretation Comments MCHC (test code = MCHC) 29.9 32.0-36.0 [facility] CenterJnjhtegJIZAKXRGCM3583-11-72 06:44:00 Test Item Value Reference Range Interpretation Comments Platelet (test code = Platelet) 400 133-450 [facility] CenterCiokrtqFPSRAVNDUI6599-84-49 06:44:00 Test Item Value Reference Range Interpretation Comments WBC (test code = WBC) 12.4 3.7-10.4 [facility] CenterKacxjkfIPCCDXIJRP5540-78-17 06:44:00 Test Item Value Reference Range Interpretation Comments RBC (test code = RBC) 3.72 4.20-5.40 [facility] CenterCrmkmgwZHMBRWJWFH3498-42-81 06:44:00 Test Item Value Reference Range Interpretation Comments Hgb (test code = Hgb) 8.1 12.0-16.0 [facility] CenterFvyxpmyIYMVLDKCJL6629-62-54 06:44:00 Test Item Value Reference Range Interpretation Comments PTT (test code = PTT) 27.2 s 22.9-35.8 [facility] CenterVckjfsoWFZLKWMXQH9225-46-33 06:44:00 Test Item Value Reference Range Interpretation Comments PT (test code = PT) 14.7 s 12.0-14.7 [facility] HospitalSgggkejBTODMCVNDR2610-69-39 06:44:00 Test Item Value Reference Range Interpretation Comments INR (test code = INR) 1.12 0.85-1.17 [facility] [employer] [id number] 06:44:00 Test Item Value Reference Range Interpretation Comments Antibody Scrn (test Negative (02/13/16 1:44 code = Antibody Scrn) AM) [facility] [employer] [id number] 06:44:00 Test Item Value Reference Range Interpretation Comments ABO/Rh (test code = ABO/Rh) A POS [facility] [employer] [id number] 06:44:00 Test Item Value Reference Range Interpretation Comments CK MB Index (test 1.6 See_Comment [Automate d message] The code = CK MB Index) system w [facility] generated this result transmit gaye reference range : <=2.5. The reference range was not used to interpr et this result as satish l/abnormal. [facility] [employer]2016-07-03 06:44:00 Test Item Value Reference Range Interpretation Comments CK MB (test code = CK MB) 0.9 0.5-3.6 [facility] [employer] [id number] 06:44:00 Test Item Value Reference Range Interpretation Comments Total CK (test code = Total CK) 57 12-191 [facility] [employer] [id number] 06:44:00 Test Item Value Reference Range Interpretation Comments Troponin-I (test code no gt See_Comment [Auto mated message] The = Troponin-I) system which g enerated this result transmit gaye reference range : <=0.40. The reference r ozzy was not used to interpr et this result as satish l/abnormal. [employer] [id number] 06:44:00 Test Item Value Reference Range Interpretation Comments Albumin Lvl (test code = Albumin Lvl) 3.5 3.5-5.0 [facility] [id number] 06:44:00 Test Item Value Reference Range Interpretation Comments Total Protein (test code = Total 7.0 6.4-8.4 Protein) [employer] [id number] 06:44:00 Test Item Value Reference Range Interpretation Comments ALT (test code = ALT) 19 See_Comment [Auto mated message] The system which ge nerated this result transmit gaye reference range : <=65. The reference range was not used to interpr et this result as satish l/abnormal. [facility] [id number] 06:44:00 Test Item Value Reference Range Interpretation Comments AST (test code = AST) 10 See_Comment [Auto mated message] The system which ge nerated this result transmit gaye reference range : <=37. The reference range was not used to interpr et this result as satish l/abnormal. [facility] [id number] 06:44:00 Test Item Value Reference Range Interpretation Comments Alk Phos (test code = Alk Phos) 79 39-136 [facility] [id number] 06:44:00 Test Item Value Reference Range Interpretation Comments Bili Total (test code = Bili Total) 0.4 0.2-1.3 [place] [id number] 06:44:00 Test Item Value Reference Range Interpretation Comments Bili Direct (test code 0.1 See_Comment [Aut omated message] The = Bili Direct) system which generated this result tra nsmitted reference range : <=0.3. The reference r ozzy was not used to int erpret this result as satish l/abnormal. [facility] [id number] 06:44:00 Test Item Value Reference Range Interpretation Comments Globulin (test code = Globulin) 3.5 2.0-4.0 [facility] [id number] 06:44:00 Test Item Value Reference Range Interpretation Comments A/G Ratio (test code = A/G Ratio) 1.0 0.7-1.6 [facility] CenterStartup FreakJAMES V[place] [id number] 06:44:00 Test Item Value Reference Range Interpretation Comments Bili Indirect (test 0.3 See_Comment [Automa gaye message] The code = Bili Indirect) system which generated this result tra nsmitted reference range : <=1.0. The reference r ozzy was not used to int erpret this result as normal/abnormal . [facility] [id number] 06:44:00 Test Item Value Reference Range Interpretation Comments eGFR (test code = eGFR) 107 [facility] [id number] 06:44:00 Test Item Value Reference Range Interpretation Comments BUN (test code = BUN) 8 7-22 [facility]2016-07-03 06:44:00 Test Item Value Reference Range Interpretation Comments Glucose Lvl (test code = Glucose Lvl) 91 70-99 [facility]2016-07-03 06:44:00 Test Item Value Reference Range Interpretation Comments Sodium Lvl (test code = Sodium Lvl) 138 135-145 [facility]2016-07-03 06:44:00 Test Item Value Reference Range Interpretation Comments Creatinine Lvl (test code = Creatinine 0.70 0.50-1.40 Lvl) [facility]2016-07-03 06:44:00 Test Item Value Reference Range Interpretation Comments Potassium Lvl (test code = Potassium 3.3 3.5-5.1 Lvl) [facility]2016-07-03 06:44:00 Test Item Value Reference Range Interpretation Comments CO2 (test code = CO2) 25 24-32 [facility]2016-07-03 06:44:00 Test Item Value Reference Range Interpretation Comments Chloride Lvl (test code = Chloride Lvl) 106 95-109 [facility]2016-07-03 06:44:00 Test Item Value Reference Range Interpretation Comments Calcium Lvl (test code = Calcium Lvl) 8.1 8.5-10.5 [facility]2016-07-03 06:44:00 Test Item Value Reference Range Interpretation Comments AGAP (test code = AGAP) 10.3 10.0-20.0 [facility]2016-07-03 06:44:00 Test Item Value Reference Range Interpretation Comments Magnesium Lvl (test code = Magnesium 2.2 1.8-2.4 Lvl) [facility] 06:44:00 Test Item Value Reference Range Interpretation Comments S Preg (test code = S Negative *NA*(02/13/16 Preg) 1:44 AM) [facility]IyqutjwMBLSPXZRCP8470-21-41 06:44:00 Test Item Value Reference Range Interpretation Comments Basophils (test code = 0.1 See_Comment [Aut omated message] The Basophils) system which ge nerated this result tra nsmitted reference range : <=1.0. The reference r ozzy was not used to int erpret this result as normal/abnormal . [facility]InxkskpSEBNXYRMJM9806-76-13 06:44:00 Test Item Value Reference Range Interpretation Comments Monocytes # (test code 0.3 See_Comment [Aut omated message] The = Monocytes #) system which generated this result tra nsmitted reference range : <=0.8. The reference r ozzy was not used to int erpret this result as normal/abnormal . [facility] CenterYxbaxhpQBGOUZHSHW9702-18-02 06:44:00 Test Item Value Reference Range Interpretation Comments Eosinophils # (test code 0.1 See_Comment [A utomated message] The = Eosinophils #) system whic h generated this result tra nsmitted reference range : <=0.5. The reference r ozzy was not used to int erpret this result as normal/abnormal . [facility] CenterMyvvvziAZWDDMQNTD0381-33-54 06:44:00 Test Item Value Reference Range Interpretation Comments Segs-Bands # (test code = Segs-Bands #) 9.3 1.5-8.1 [facility] C[id number] 06:44:00 Test Item Value Reference Range Interpretation Comments Lymphocytes # (test code = Lymphocytes 2.6 1.0-5.5 #) [facility] CenterGwbpxzaTKRIXFIIYN9690-38-10 06:44:00 Test Item Value Reference Range Interpretation Comments Basophils # (test code 0.0 See_Comment [Aut omated message] The = Basophils #) system which generated this result tra nsmitted reference range : <=0.2. The reference r ozzy was not used to int erpret this result as normal/abnormal . [facility] CenterOrglhgjUPLJRCJNPL5158-89-31 06:44:00 Test Item Value Reference Range Interpretation Comments Microcyte (test code = 1+ *ABN*(02/13/16 1:44 Microcyte) AM) [facility] CenterWeelcbmNETTKQLEJR1000-16-25 06:44:00 Test Item Value Reference Range Interpretation Comments Giant Plt (test code Moderate *ABN*(02/13/16 = Giant Plt) 1:44 AM) [facility] CenterIizbngiYPZHAYICOL0166-07-73 06:44:00 Test Item Value Reference Range Interpretation Comments Segs (test code = Segs) 75.2 45.0-75.0 [facility] CenterNowfrcnYILVIFFYOI6074-54-07 06:44:00 Test Item Value Reference Range Interpretation Comments Hypochrom (test code = 1+ (02/13/16 1:44 AM) Hypochrom) [facility] CenterAcnyzevNNWFZNJSHI5963-76-83 06:44:00 Test Item Value Reference Range Interpretation Comments Eosinophils (test code = 0.7 See_Comment [A utomated message] The Eosinophils) system which ge nerated this result tra nsmitted reference range : <=4.0. The reference r ozzy was not used to int erpret this result as normal/abnormal . [facility] CenterTnirnnxCRPYPBJWRE9126-58-84 06:44:00 Test Item Value Reference Range Interpretation Comments Lymphocytes (test code = Lymphocytes) 21.3 20.0-40.0 [facility] CenterOluhihpOMDVNTOXBW7352-56-29 06:44:00 Test Item Value Reference Range Interpretation Comments Monocytes (test code = Monocytes) 2.7 2.0-12.0 [facility] CenterWpzvkodLAGWTMXRCF1468-52-41 06:44:00 Test Item Value Reference Range Interpretation Comments MPV (test code = MPV) 9.5 7.4-10.4 [facility] CenterZhqiraiFGJDCBBRUO9094-07-37 06:44:00 Test Item Value Reference Range Interpretation Comments RDW (test code = RDW) 17.8 11.5-14.5 [facility] CenterKugjhlhFLETVKFYAW2121-34-52 06:44:00 Test Item Value Reference Range Interpretation Comments MCV (test code = MCV) 73.2 80.0-98.0 [facility] CenterMmjxuaeGWQMWIDGCG6878-88-19 06:44:00 Test Item Value Reference Range Interpretation Comments MCH (test code = MCH) 21.9 pg 27.0-31.0 [facility] CenterXfurnmwWKHKRXCVBH1731-34-63 06:44:00 Test Item Value Reference Range Interpretation Comments Hct (test code = Hct) 27.2 36.0-48.0 [facility] CenterIxxbhmkZCSBRNURDO9190-13-34 06:44:00 Test Item Value Reference Range Interpretation Comments MCHC (test code = MCHC) 29.9 32.0-36.0 [facility] CenterAzwavtqYTGZSJGVYC7822-08-21 06:44:00 Test Item Value Reference Range Interpretation Comments Platelet (test code = Platelet) 400 133-450 [facility] CenterEcrpjonHNMOGXPTTL4991-51-35 06:44:00 Test Item Value Reference Range Interpretation Comments WBC (test code = WBC) 12.4 3.7-10.4 [facility] UwuortyOPHVWRRRTF8684-42-22 06:44:00 Test Item Value Reference Range Interpretation Comments RBC (test code = RBC) 3.72 4.20-5.40 [facility] CenterFuznscdLEMDCEEUPX2913-99-65 06:44:00 Test Item Value Reference Range Interpretation Comments Hgb (test code = Hgb) 8.1 12.0-16.0 [facility] GsgaynhADQIIRSEYN6480-83-15 06:44:00 Test Item Value Reference Range Interpretation Comments PTT (test code = PTT) 27.2 s 22.9-35.8 [facility] IvmbmykDMKCLLODBG1691-28-25 06:44:00 Test Item Value Reference Range Interpretation Comments PT (test code = PT) 14.7 s 12.0-14.7 [facility] CenterSymptilSUSRGHPJNO4740-26-47 06:44:00 Test Item Value Reference Range Interpretation Comments INR (test code = INR) 1.12 0.85-1.17 [facility] [id number] 06:44:00 Test Item Value Reference Range Interpretation Comments Antibody Scrn (test Negative (02/13/16 1:44 code = Antibody Scrn) AM) [facility] [id number] 06:44:00 Test Item Value Reference Range Interpretation Comments ABO/Rh (test code = ABO/Rh) A POS [facility] [employer]2016-07-03 06:44:00 Test Item Value Reference Range Interpretation Comments CK MB Index (test 1.6 See_Comment [Automate d message] The code = CK MB Index) system w [facility] generated this result transmit gaye reference range : <=2.5. The reference range was not used to interpr et this result as satish l/abnormal. [employer]2016-07-03 06:44:00 Test Item Value Reference Range Interpretation Comments CK MB (test code = CK MB) 0.9 0.5-3.6 [facility] [employer]2016-07-03 06:44:00 Test Item Value Reference Range Interpretation Comments Total CK (test code = Total CK) 57 12-191 [facility] [employer]2016-07-03 06:44:00 Test Item Value Reference Range Interpretation Comments Troponin-I (test code no gt See_Comment [Auto mated message] The = Troponin-I) system which g enerated this result transmit gaye reference range : <=0.40. The reference r ozzy was not used to interpr et this result as satish l/abnormal. [facility] [id number] 06:44:00 Test Item Value Reference Range Interpretation Comments Albumin Lvl (test code = Albumin Lvl) 3.5 3.5-5.0 [facility] CenterStartup FreakSANDHILLS REGIONAL MEDICAL CENTERENCRT9146-01-12 06:44:00 Test Item Value Reference Range Interpretation Comments Total Protein (test code = Total 7.0 6.4-8.4 Protein) [facility] [id number] 06:44:00 Test Item Value Reference Range Interpretation Comments ALT (test code = ALT) 19 See_Comment [Auto mated message] The system which ge nerated this result transmit gaye reference range : <=65. The reference range was not used to interpr et this result as satish l/abnormal. [facility] [id number] 06:44:00 Test Item Value Reference Range Interpretation Comments AST (test code = AST) 10 See_Comment [Auto mated message] The system which ge nerated this result transmit gaye reference range : <=37. The reference range was not used to interpr et this result as satish l/abnormal. [facility] [id number] 06:44:00 Test Item Value Reference Range Interpretation Comments Alk Phos (test code = Alk Phos) 79 39-136 [facility] [id number] 06:44:00 Test Item Value Reference Range Interpretation Comments Bili Total (test code = Bili Total) 0.4 0.2-1.3 [facility] [id number] 06:44:00 Test Item Value Reference Range Interpretation Comments Bili Direct (test code 0.1 See_Comment [Aut omated message] The = Bili Direct) system which generated this result tra nsmitted reference range : <=0.3. The reference r ozzy was not used to int erpret this result as satish l/abnormal. [facility] [id number] 06:44:00 Test Item Value Reference Range Interpretation Comments Globulin (test code = Globulin) 3.5 2.0-4.0 [place] [id number] 06:44:00 Test Item Value Reference Range Interpretation Comments A/G Ratio (test code = A/G Ratio) 1.0 0.7-1.6 [facility]2016-07-03 06:44:00 Test Item Value Reference Range Interpretation Comments Bili Indirect (test 0.3 See_Comment [Automa gaye message] The code = Bili Indirect) system which generated this result tra nsmitted reference range : <=1.0. The reference r ozzy was not used to int erpret this result as normal/abnormal . [facility]2016-07-03 06:44:00 Test Item Value Reference Range Interpretation Comments eGFR (test code = eGFR) 107 [facility]2016-07-03 06:44:00 Test Item Value Reference Range Interpretation Comments BUN (test code = BUN) 8 7-22 [facility]2016-07-03 06:44:00 Test Item Value Reference Range Interpretation Comments Glucose Lvl (test code = Glucose Lvl) 91 70-99 [facility]2016-07-03 06:44:00 Test Item Value Reference Range Interpretation Comments Sodium Lvl (test code = Sodium Lvl) 138 135-145 [facility]2016-07-03 06:44:00 Test Item Value Reference Range Interpretation Comments Creatinine Lvl (test code = Creatinine 0.70 0.50-1.40 Lvl) [facility]2016-07-03 06:44:00 Test Item Value Reference Range Interpretation Comments Potassium Lvl (test code = Potassium 3.3 3.5-5.1 Lvl) [facility]2016-07-03 06:44:00 Test Item Value Reference Range Interpretation Comments CO2 (test code = CO2) 25 24-32 [facility]2016-07-03 06:44:00 Test Item Value Reference Range Interpretation Comments Chloride Lvl (test code = Chloride Lvl) 106 95-109 [facility]2016-07-03 06:44:00 Test Item Value Reference Range Interpretation Comments Calcium Lvl (test code = Calcium Lvl) 8.1 8.5-10.5 [facility]2016-07-03 06:44:00 Test Item Value Reference Range Interpretation Comments AGAP (test code = AGAP) 10.3 10.0-20.0 [facility]2016-07-03 06:44:00 Test Item Value Reference Range Interpretation Comments Magnesium Lvl (test code = Magnesium 2.2 1.8-2.4 Lvl) [place] [id number] 06:44:00 Test Item Value Reference Range Interpretation Comments S Preg (test code = S Negative *NA*(02/13/16 Preg) 1:44 AM) [facility] CenterDhgoruiWEYNXVDWPR8149-34-22 06:44:00 Test Item Value Reference Range Interpretation Comments Basophils (test code = 0.1 See_Comment [Aut omated message] The Basophils) system which ge nerated this result tra nsmitted reference range : <=1.0. The reference r ozzy was not used to int erpret this result as normal/abnormal . [facility] CenterVafvvxjNMTLVSXGFB5111-73-19 06:44:00 Test Item Value Reference Range Interpretation Comments Monocytes # (test code 0.3 See_Comment [Aut omated message] The = Monocytes #) system which generated this result tra nsmitted reference range : <=0.8. The reference r ozzy was not used to int erpret this result as normal/abnormal . [facility] CenterTmfifwbTGEPDXKPYT6204-79-78 06:44:00 Test Item Value Reference Range Interpretation Comments Eosinophils # (test code 0.1 See_Comment [A utomated message] The = Eosinophils #) system whic h generated this result tra nsmitted reference range : <=0.5. The reference r ozzy was not used to int erpret this result as normal/abnormal . [facility] CenterNofxrkfTMUTVJLGKD3106-95-71 06:44:00 Test Item Value Reference Range Interpretation Comments Segs-Bands # (test code = Segs-Bands #) 9.3 1.5-8.1 [facility] CenterRgbcisbNMORCKQVBL9622-00-48 06:44:00 Test Item Value Reference Range Interpretation Comments Lymphocytes # (test code = Lymphocytes 2.6 1.0-5.5 #) [facility] CenterXhrccdfIYOSHVLLIM4834-08-14 06:44:00 Test Item Value Reference Range Interpretation Comments Basophils # (test code 0.0 See_Comment [Aut omated message] The = Basophils #) system which generated this result tra nsmitted reference range : <=0.2. The reference r ozzy was not used to int erpret this result as normal/abnormal . [facility] CenterCednajkDTQXITIZHU1207-01-68 06:44:00 Test Item Value Reference Range Interpretation Comments Microcyte (test code = 1+ *ABN*(02/13/16 1:44 Microcyte) AM) [facility] CenterBxlbtuhSQMDXSGJRS8237-43-20 06:44:00 Test Item Value Reference Range Interpretation Comments Giant Plt (test code Moderate *ABN*(02/13/16 = Giant Plt) 1:44 AM) [facility] CenterDkouhytWJDPBSRIBU5638-55-15 06:44:00 Test Item Value Reference Range Interpretation Comments Segs (test code = Segs) 75.2 45.0-75.0 [facility] CenterExzvvhbZDBLJDZFFD3815-49-42 06:44:00 Test Item Value Reference Range Interpretation Comments Hypochrom (test code = 1+ (02/13/16 1:44 AM) Hypochrom) [facility] CenterGorwsvgOGBDJDDNVG4576-96-74 06:44:00 Test Item Value Reference Range Interpretation Comments Eosinophils (test code = 0.7 See_Comment [A utomated message] The Eosinophils) system which ge nerated this result tra nsmitted reference range : <=4.0. The reference r ozzy was not used to int erpret this result as normal/abnormal . [facility] CenterWdadxenWVLZFFDJRS3875-51-71 06:44:00 Test Item Value Reference Range Interpretation Comments Lymphocytes (test code = Lymphocytes) 21.3 20.0-40.0 [facility] CenterIxjzoicMVPNNWNBCX6180-01-94 06:44:00 Test Item Value Reference Range Interpretation Comments Monocytes (test code = Monocytes) 2.7 2.0-12.0 [facility] CenterGmakimsEBRMFBWNWK5396-79-09 06:44:00 Test Item Value Reference Range Interpretation Comments MPV (test code = MPV) 9.5 7.4-10.4 [facility] CenterBlnehrfTZSAQOJFZM9686-79-59 06:44:00 Test Item Value Reference Range Interpretation Comments RDW (test code = RDW) 17.8 11.5-14.5 [facility] CenterMozaqvpRGGAMIXWMZ2738-67-35 06:44:00 Test Item Value Reference Range Interpretation Comments MCV (test code = MCV) 73.2 80.0-98.0 [facility] HospitalOpysnpgOGYRNXKIEF4040-88-10 06:44:00 Test Item Value Reference Range Interpretation Comments MCH (test code = MCH) 21.9 pg 27.0-31.0 [facility] HospitalIyuiwneVGKVUQDLCZ7725-39-49 06:44:00 Test Item Value Reference Range Interpretation Comments Hct (test code = Hct) 27.2 36.0-48.0 [facility] HospitalTfoyflaQXAGDKMVRK0104-41-78 06:44:00 Test Item Value Reference Range Interpretation Comments MCHC (test code = MCHC) 29.9 32.0-36.0 [facility] HospitalUbdlhjqOJMTLPHGEH5789-80-66 06:44:00 Test Item Value Reference Range Interpretation Comments Platelet (test code = Platelet) 400 133-450 [facility] HospitalWviskxzMZHYEAKIRF1326-17-90 06:44:00 Test Item Value Reference Range Interpretation Comments WBC (test code = WBC) 12.4 3.7-10.4 [facility] HospitalDqaaihfCDNZTFISFX5414-63-52 06:44:00 Test Item Value Reference Range Interpretation Comments RBC (test code = RBC) 3.72 4.20-5.40 [facility] HospitalHuqoioeYWMHFGDSCX3231-17-54 06:44:00 Test Item Value Reference Range Interpretation Comments Hgb (test code = Hgb) 8.1 12.0-16.0 [facility] HospitalDpvahftVHFZBAKSGB8736-48-39 06:44:00 Test Item Value Reference Range Interpretation Comments PTT (test code = PTT) 27.2 s 22.9-35.8 [facility] HospitalUwwujctVFRQCJQMOW3772-91-39 06:44:00 Test Item Value Reference Range Interpretation Comments PT (test code = PT) 14.7 s 12.0-14.7 [facility] HospitalPhtlvosMFYVNLGWHG8401-80-09 06:44:00 Test Item Value Reference Range Interpretation Comments INR (test code = INR) 1.12 0.85-1.17 [facility] [employer] [id number] 06:44:00 Test Item Value Reference Range Interpretation Comments Antibody Scrn (test Negative (02/13/16 1:44 code = Antibody Scrn) AM) [facility] [employer] XNCKGMJ7128-30-27 06:44:00 Test Item Value Reference Range Interpretation Comments ABO/Rh (test code = ABO/Rh) A POS [facility] [employer] HallannCARDIAC KVUZNHW3521-60-30 06:44:00 Test Item Value Reference Range Interpretation Comments CK MB Index (test 1.6 See_Comment [Automate d message] The code = CK MB Index) system w dee dee generated this result transmit gaye reference range : <=2.5. The reference range was not used to interpr et this result as satish l/abnormal. [facility] [employer] IKPHPKQ1555-24-03 06:44:00 Test Item Value Reference Range Interpretation Comments CK MB (test code = CK MB) 0.9 0.5-3.6 [facility] [employer] GRKWQJP9966-68-91 06:44:00 Test Item Value Reference Range Interpretation Comments Total CK (test code = Total CK) 57 12-191 [facility] [employer]2016-07-03 06:44:00 Test Item Value Reference Range Interpretation Comments Troponin-I (test code no gt See_Comment [Auto mated message] The = Troponin-I) system which g enerated this result transmit gaye reference range : <=0.40. The reference r ozzy was not used to interpr et this result as satish l/abnormal. [employer]2016-07-03 06:44:00 Test Item Value Reference Range Interpretation Comments Albumin Lvl (test code = Albumin Lvl) 3.5 3.5-5.0 [facility] [employer]2016-07-03 06:44:00 Test Item Value Reference Range Interpretation Comments Total Protein (test code = Total 7.0 6.4-8.4 Protein) [facility] [employer]2016-07-03 06:44:00 Test Item Value Reference Range Interpretation Comments ALT (test code = ALT) 19 See_Comment [Auto mated message] The system which ge nerated this result transmit gaye reference range : <=65. The reference range was not used to interpr et this result as satish l/abnormal. [facility]2016-07-03 06:44:00 Test Item Value Reference Range Interpretation Comments AST (test code = AST) 10 See_Comment [Auto mated message] The system which ge nerated this result transmit gaye reference range : <=37. The reference range was not used to interpr et this result as satish l/abnormal. [facility]2016-07-03 06:44:00 Test Item Value Reference Range Interpretation Comments Alk Phos (test code = Alk Phos) 79 39-136 [facility]2016-07-03 06:44:00 Test Item Value Reference Range Interpretation Comments Bili Total (test code = Bili Total) 0.4 0.2-1.3 [facility]2016-07-03 06:44:00 Test Item Value Reference Range Interpretation Comments Bili Direct (test code 0.1 See_Comment [Aut omated message] The = Bili Direct) system which generated this result tra nsmitted reference range : <=0.3. The reference r ozzy was not used to int erpret this result as satish l/abnormal. [facility]2016-07-03 06:44:00 Test Item Value Reference Range Interpretation Comments Globulin (test code = Globulin) 3.5 2.0-4.0 [facility]2016-07-03 06:44:00 Test Item Value Reference Range Interpretation Comments A/G Ratio (test code = A/G Ratio) 1.0 0.7-1.6 [facility]2016-07-03 06:44:00 Test Item Value Reference Range Interpretation Comments Bili Indirect (test 0.3 See_Comment [Automa gaye message] The code = Bili Indirect) system which generated this result tra nsmitted reference range : <=1.0. The reference r ozzy was not used to int erpret this result as normal/abnormal . [facility]2016-07-03 06:44:00 Test Item Value Reference Range Interpretation Comments eGFR (test code = eGFR) 107 [facility]2016-07-03 06:44:00 Test Item Value Reference Range Interpretation Comments BUN (test code = BUN) 8 7-22 [facility]2016-07-03 06:44:00 Test Item Value Reference Range Interpretation Comments Glucose Lvl (test code = Glucose Lvl) 91 70-99 [facility]2016-07-03 06:44:00 Test Item Value Reference Range Interpretation Comments Sodium Lvl (test code = Sodium Lvl) 138 135-145 [facility]2016-07-03 06:44:00 Test Item Value Reference Range Interpretation Comments Creatinine Lvl (test code = Creatinine 0.70 0.50-1.40 Lvl) [facility]2016-07-03 06:44:00 Test Item Value Reference Range Interpretation Comments Potassium Lvl (test code = Potassium 3.3 3.5-5.1 Lvl) [facility]2016-07-03 06:44:00 Test Item Value Reference Range Interpretation Comments CO2 (test code = CO2) 25 24-32 [facility]2016-07-03 06:44:00 Test Item Value Reference Range Interpretation Comments Chloride Lvl (test code = Chloride Lvl) 106 95-109 [facility]2016-07-03 06:44:00 Test Item Value Reference Range Interpretation Comments Calcium Lvl (test code = Calcium Lvl) 8.1 8.5-10.5 [facility]2016-07-03 06:44:00 Test Item Value Reference Range Interpretation Comments AGAP (test code = AGAP) 10.3 10.0-20.0 [facility]2016-07-03 06:44:00 Test Item Value Reference Range Interpretation Comments Magnesium Lvl (test code = Magnesium 2.2 1.8-2.4 Lvl) [facility]bMKYRID[facility]NUQAP9509-14-97 06:44:00 Test Item Value Reference Range Interpretation Comments S Preg (test code = S Negative *NA*(02/13/16 Preg) 1:44 AM) [facility]2493[facility]-47 06:44:00 Test Item Value Reference Range Interpretation Comments Basophils (test code = 0.1 See_Comment [Aut omated message] The Basophils) system which ge nerated this result tra nsmitted reference range : <=1.0. The reference r ozzy was not used to int erpret this result as normal/abnormal . [facility]MayiiwmOPRIKSFWNR0016-27-70 06:44:00 Test Item Value Reference Range Interpretation Comments Monocytes # (test code 0.3 See_Comment [Aut omated message] The = Monocytes #) system which generated this result tra nsmitted reference range : <=0.8. The reference r ozzy was not used to int erpret this result as normal/abnormal . [facility] CenterIjnemzrXMRVMEFJNY1111-86-60 06:44:00 Test Item Value Reference Range Interpretation Comments Eosinophils # (test code 0.1 See_Comment [A utomated message] The = Eosinophils #) system whic h generated this result tra nsmitted reference range : <=0.5. The reference r ozzy was not used to int erpret this result as normal/abnormal . [facility] CenterIfoqrvpPCHRAUUKFP1175-71-82 06:44:00 Test Item Value Reference Range Interpretation Comments Segs-Bands # (test code = Segs-Bands #) 9.3 1.5-8.1 [facility] CenterXnlntctCILWBBOTYJ7760-51-35 06:44:00 Test Item Value Reference Range Interpretation Comments Lymphocytes # (test code = Lymphocytes 2.6 1.0-5.5 #) [facility] CenterDblriclQRALIFOEQI2201-47-33 06:44:00 Test Item Value Reference Range Interpretation Comments Basophils # (test code 0.0 See_Comment [Aut omated message] The = Basophils #) system which generated this result tra nsmitted reference range : <=0.2. The reference r ozzy was not used to int erpret this result as normal/abnormal . [facility] CenterVyndueeHFSDPBTBWP1287-01-16 06:44:00 Test Item Value Reference Range Interpretation Comments Microcyte (test code = 1+ *ABN*(02/13/16 1:44 Microcyte) AM) [facility] CenterAxnfwwjAJUAHARBOC3588-46-97 06:44:00 Test Item Value Reference Range Interpretation Comments Giant Plt (test code Moderate *ABN*(02/13/16 = Giant Plt) 1:44 AM) [facility] CenterOhajcmkCBGIOSXMCS1382-84-40 06:44:00 Test Item Value Reference Range Interpretation Comments Segs (test code = Segs) 75.2 45.0-75.0 [facility] CenterTkjdyapWLSFHQTXUC6991-11-54 06:44:00 Test Item Value Reference Range Interpretation Comments Hypochrom (test code = 1+ (02/13/16 1:44 AM) Hypochrom) [facility] CenterHdxvwmdADHTUSQJJL5418-27-27 06:44:00 Test Item Value Reference Range Interpretation Comments Eosinophils (test code = 0.7 See_Comment [A utomated message] The Eosinophils) system which ge nerated this result tra nsmitted reference range : <=4.0. The reference r ozzy was not used to int erpret this result as normal/abnormal . [facility] CenterHyvxrwsEYOYMFTLEY7981-18-97 06:44:00 Test Item Value Reference Range Interpretation Comments Lymphocytes (test code = Lymphocytes) 21.3 20.0-40.0 [facility] CenterTolahlkNBBABKEMHL9112-59-24 06:44:00 Test Item Value Reference Range Interpretation Comments Monocytes (test code = Monocytes) 2.7 2.0-12.0 [facility] CenterAboocreEWNLKKJOFC4385-73-28 06:44:00 Test Item Value Reference Range Interpretation Comments MPV (test code = MPV) 9.5 7.4-10.4 [facility] CenterCdygupbNLCWPJAPIM3448-76-09 06:44:00 Test Item Value Reference Range Interpretation Comments RDW (test code = RDW) 17.8 11.5-14.5 [facility] CenterVrhamvlUKXDCOFPYX8332-13-23 06:44:00 Test Item Value Reference Range Interpretation Comments MCV (test code = MCV) 73.2 80.0-98.0 [facility] CenterEzqrggpSUNOOGRFJH6192-30-01 06:44:00 Test Item Value Reference Range Interpretation Comments MCH (test code = MCH) 21.9 pg 27.0-31.0 [facility] CenterEthczxcNJNOZJEQWJ8041-94-64 06:44:00 Test Item Value Reference Range Interpretation Comments Hct (test code = Hct) 27.2 36.0-48.0 [facility] CenterHrndspqIGJWFMKTTV1318-04-85 06:44:00 Test Item Value Reference Range Interpretation Comments MCHC (test code = MCHC) 29.9 32.0-36.0 [facility] CenterXynawzcCXVPEVWQZV3307-95-19 06:44:00 Test Item Value Reference Range Interpretation Comments Platelet (test code = Platelet) 400 133-450 [facility] CenterLrdvofxMYFWXFSIWY2666-25-02 06:44:00 Test Item Value Reference Range Interpretation Comments WBC (test code = WBC) 12.4 3.7-10.4 [facility] CenterTnfapbgAHIRLDCZRF8039-37-67 06:44:00 Test Item Value Reference Range Interpretation Comments RBC (test code = RBC) 3.72 4.20-5.40 [facility] CenterEqeosobCYGKIUMPBY1805-73-44 06:44:00 Test Item Value Reference Range Interpretation Comments Hgb (test code = Hgb) 8.1 12.0-16.0 [facility] CenterWawvyywKRETLCLVNV5399-96-72 06:44:00 Test Item Value Reference Range Interpretation Comments PTT (test code = PTT) 27.2 s 22.9-35.8 [facility] PdgdcjcPQKUDNPBSF9378-98-96 06:44:00 Test Item Value Reference Range Interpretation Comments PT (test code = PT) 14.7 s 12.0-14.7 [facility] DjbxwgdNBVRDXWYVY1428-75-67 06:44:00 Test Item Value Reference Range Interpretation Comments INR (test code = INR) 1.12 0.85-1.17 [facility] [id number] 06:44:00 Test Item Value Reference Range Interpretation Comments Antibody Scrn (test Negative (02/13/16 1:44 code = Antibody Scrn) AM) [facility] [id number] 06:44:00 Test Item Value Reference Range Interpretation Comments ABO/Rh (test code = ABO/Rh) A POS [facility] [employer]2016-07-03 06:44:00 Test Item Value Reference Range Interpretation Comments CK MB Index (test 1.6 See_Comment [Automate d message] The code = CK MB Index) system w [facility] generated this result transmit gaye reference range : <=2.5. The reference range was not used to interpr et this result as satish l/abnormal. [facility]2016-07-03 06:44:00 Test Item Value Reference Range Interpretation Comments CK MB (test code = CK MB) 0.9 0.5-3.6 [facility] [employer]Kave2016-07-03 06:44:00 Test Item Value Reference Range Interpretation Comments Total CK (test code = Total CK) 57 12-191 [facility] [employer]2016-07-03 06:44:00 Test Item Value Reference Range Interpretation Comments Troponin-I (test code no gt See_Comment [Auto mated message] The = Troponin-I) system which g enerated this result transmit gaye reference range : <=0.40. The reference r ozzy was not used to interpr et this result as satish l/abnormal. [facility] [id number] 06:44:00 Test Item Value Reference Range Interpretation Comments Albumin Lvl (test code = Albumin Lvl) 3.5 3.5-5.0 [facility] [id number] 06:44:00 Test Item Value Reference Range Interpretation Comments Total Protein (test code = Total 7.0 6.4-8.4 Protein) [facility] [id number] 06:44:00 Test Item Value Reference Range Interpretation Comments ALT (test code = ALT) 19 See_Comment [Auto mated message] The system which ge nerated this result transmit gaye reference range : <=65. The reference range was not used to interpr et this result as satish l/abnormal. [facility] [id number] 06:44:00 Test Item Value Reference Range Interpretation Comments AST (test code = AST) 10 See_Comment [Auto mated message] The system which ge nerated this result transmit gaye reference range : <=37. The reference range was not used to interpr et this result as satish l/abnormal. [facility] [id number] 06:44:00 Test Item Value Reference Range Interpretation Comments Alk Phos (test code = Alk Phos) 79 39-136 [facility] [id number] 06:44:00 Test Item Value Reference Range Interpretation Comments Bili Total (test code = Bili Total) 0.4 0.2-1.3 [facility] IKGWQ3654-34-28 06:44:00 Test Item Value Reference Range Interpretation Comments Bili Direct (test code 0.1 See_Comment [Aut omated message] The = Bili Direct) system which generated this result tra nsmitted reference range : <=0.3. The reference r ozzy was not used to int erpret this result as satish l/abnormal. [facility] [id number] 06:44:00 Test Item Value Reference Range Interpretation Comments Globulin (test code = Globulin) 3.5 2.0-4.0 [facility] [id number] 06:44:00 Test Item Value Reference Range Interpretation Comments A/G Ratio (test code = A/G Ratio) 1.0 0.7-1.6 [facility] [id number] 06:44:00 Test Item Value Reference Range Interpretation Comments Bili Indirect (test 0.3 See_Comment [Automa gaye message] The code = Bili Indirect) system which generated this result tra nsmitted reference range : <=1.0. The reference r ozzy was not used to int erpret this result as normal/abnormal . [facility]2016-07-03 06:44:00 Test Item Value Reference Range Interpretation Comments eGFR (test code = eGFR) 107 [facility]2016-07-03 06:44:00 Test Item Value Reference Range Interpretation Comments BUN (test code = BUN) 8 7-22 [facility]2016-07-03 06:44:00 Test Item Value Reference Range Interpretation Comments Glucose Lvl (test code = Glucose Lvl) 91 70-99 [facility]2016-07-03 06:44:00 Test Item Value Reference Range Interpretation Comments Sodium Lvl (test code = Sodium Lvl) 138 135-145 [facility]2016-07-03 06:44:00 Test Item Value Reference Range Interpretation Comments Creatinine Lvl (test code = Creatinine 0.70 0.50-1.40 Lvl) [facility]2016-07-03 06:44:00 Test Item Value Reference Range Interpretation Comments Potassium Lvl (test code = Potassium 3.3 3.5-5.1 Lvl) [facility]2016-07-03 06:44:00 Test Item Value Reference Range Interpretation Comments CO2 (test code = CO2) 25 24-32 [facility]2016-07-03 06:44:00 Test Item Value Reference Range Interpretation Comments Chloride Lvl (test code = Chloride Lvl) 106 95-109 [facility]2016-07-03 06:44:00 Test Item Value Reference Range Interpretation Comments Calcium Lvl (test code = Calcium Lvl) 8.1 8.5-10.5 [facility]2016-07-03 06:44:00 Test Item Value Reference Range Interpretation Comments AGAP (test code = AGAP) 10.3 10.0-20.0 [facility]2016-07-03 06:44:00 Test Item Value Reference Range Interpretation Comments Magnesium Lvl (test code = Magnesium 2.2 1.8-2.4 Lvl) [facility] 06:44:00 Test Item Value Reference Range Interpretation Comments S Preg (test code = S Negative *NA*(02/13/16 Preg) 1:44 AM) [facility]SiwpbwdXCFMHGXKLP4023-94-26 06:44:00 Test Item Value Reference Range Interpretation Comments Basophils (test code = 0.1 See_Comment [Aut omated message] The Basophils) system which ge nerated this result tra nsmitted reference range : <=1.0. The reference r ozzy was not used to int erpret this result as normal/abnormal . [facility]IlkjaesMIPMFBCRCE8283-09-56 06:44:00 Test Item Value Reference Range Interpretation Comments Monocytes # (test code 0.3 See_Comment [Aut omated message] The = Monocytes #) system which generated this result tra nsmitted reference range : <=0.8. The reference r ozzy was not used to int erpret this result as normal/abnormal . [facility] CenterYbbyarkLIKUAMPKKT0620-63-45 06:44:00 Test Item Value Reference Range Interpretation Comments Eosinophils # (test code 0.1 See_Comment [A utomated message] The = Eosinophils #) system whic h generated this result tra nsmitted reference range : <=0.5. The reference r ozzy was not used to int erpret this result as normal/abnormal . [facility] CenterEzgrkcdKTFOOZLJAS6088-38-72 06:44:00 Test Item Value Reference Range Interpretation Comments Segs-Bands # (test code = Segs-Bands #) 9.3 1.5-8.1 [facility] CenterWxltyuaXPOPPIQMCI9757-53-42 06:44:00 Test Item Value Reference Range Interpretation Comments Lymphocytes # (test code = Lymphocytes 2.6 1.0-5.5 #) [facility] CenterSqwpkccJOEPZUOLVD6775-69-99 06:44:00 Test Item Value Reference Range Interpretation Comments Basophils # (test code 0.0 See_Comment [Aut omated message] The = Basophils #) system which generated this result tra nsmitted reference range : <=0.2. The reference r ozzy was not used to int erpret this result as normal/abnormal . [facility] CenterMvbzyywWRAZDAITGC9527-98-79 06:44:00 Test Item Value Reference Range Interpretation Comments Microcyte (test code = 1+ *ABN*(02/13/16 1:44 Microcyte) AM) [facility] CenterMzycjryLGFZAVFROR1933-70-87 06:44:00 Test Item Value Reference Range Interpretation Comments Giant Plt (test code Moderate *ABN*(02/13/16 = Giant Plt) 1:44 AM) [facility] CenterSkfctfvOLVDFGTXAG9211-10-01 06:44:00 Test Item Value Reference Range Interpretation Comments Segs (test code = Segs) 75.2 45.0-75.0 [facility] CenterGrlpymtRRAYPSZQSN8121-11-94 06:44:00 Test Item Value Reference Range Interpretation Comments Hypochrom (test code = 1+ (02/13/16 1:44 AM) Hypochrom) [facility] CenterAwfzxanICJXJTQMMP1747-16-34 06:44:00 Test Item Value Reference Range Interpretation Comments Eosinophils (test code = 0.7 See_Comment [A utomated message] The Eosinophils) system which ge nerated this result tra nsmitted reference range : <=4.0. The reference r ozzy was not used to int erpret this result as normal/abnormal . [facility] CenterDjzktqaZVFVWUVYDM8861-14-97 06:44:00 Test Item Value Reference Range Interpretation Comments Lymphocytes (test code = Lymphocytes) 21.3 20.0-40.0 [facility] CenterQfipknkLEKKVRAZQS8399-47-39 06:44:00 Test Item Value Reference Range Interpretation Comments Monocytes (test code = Monocytes) 2.7 2.0-12.0 [facility] CenterNkccigwFNSEMRPZTE9627-29-42 06:44:00 Test Item Value Reference Range Interpretation Comments MPV (test code = MPV) 9.5 7.4-10.4 [facility] CenterXvgdgpaKSXPRPFISR4379-77-75 06:44:00 Test Item Value Reference Range Interpretation Comments RDW (test code = RDW) 17.8 11.5-14.5 [facility] CenterTuggesmCVSBYHFATV8535-44-33 06:44:00 Test Item Value Reference Range Interpretation Comments MCV (test code = MCV) 73.2 80.0-98.0 [facility] CenterFkslzodULMLGFWDXN7237-23-96 06:44:00 Test Item Value Reference Range Interpretation Comments MCH (test code = MCH) 21.9 pg 27.0-31.0 [facility] CenterExvgcpvOZEKXPLQPV8880-80-54 06:44:00 Test Item Value Reference Range Interpretation Comments Hct (test code = Hct) 27.2 36.0-48.0 [facility] CenterGwywukqSBVUZTRORJ1188-53-70 06:44:00 Test Item Value Reference Range Interpretation Comments MCHC (test code = MCHC) 29.9 32.0-36.0 [facility] CenterLztuuwhTUQXPFAHVR1282-64-06 06:44:00 Test Item Value Reference Range Interpretation Comments Platelet (test code = Platelet) 400 133-450 [facility] WsleekfDAPWTHLDXB6720-96-08 06:44:00 Test Item Value Reference Range Interpretation Comments WBC (test code = WBC) 12.4 3.7-10.4 [facility] AbsivtoCRSYOUVCTW1624-01-10 06:44:00 Test Item Value Reference Range Interpretation Comments RBC (test code = RBC) 3.72 4.20-5.40 [facility] UklyqxmGGVZTZZOUF3023-11-37 06:44:00 Test Item Value Reference Range Interpretation Comments Hgb (test code = Hgb) 8.1 12.0-16.0 flu[facility] BiosystemsBukyotzXZOXVSWZQM7003-07-59 06:44:00 Test Item Value Reference Range Interpretation Comments PTT (test code = PTT) 27.2 s 22.9-35.8 [facility] YpuldqiFRBDCIDNEL9007-18-69 06:44:00 Test Item Value Reference Range Interpretation Comments PT (test code = PT) 14.7 s 12.0-14.7 [facility] HgteomjQQYGESQFMI9172-40-32 06:44:00 Test Item Value Reference Range Interpretation Comments INR (test code = INR) 1.12 0.85-1.17 [facility] [id number] 06:44:00 Test Item Value Reference Range Interpretation Comments Antibody Scrn (test Negative (02/13/16 1:44 code = Antibody Scrn) AM) [facility] [id number] 06:44:00 Test Item Value Reference Range Interpretation Comments ABO/Rh (test code = ABO/Rh) A POS [facility]2016-07-03 06:44:00 Test Item Value Reference Range Interpretation Comments CK MB Index (test 1.6 See_Comment [Automate d message] The code = CK MB Index) system w [facility] generated this result transmit gaye reference range : <=2.5. The reference range was not used to interpr et this result as satish l/abnormal. [facility]2016-07-03 06:44:00 Test Item Value Reference Range Interpretation Comments CK MB (test code = CK MB) 0.9 0.5-3.6 [facility]2016-07-03 06:44:00 Test Item Value Reference Range Interpretation Comments Total CK (test code = Total CK) 57 12-191 [facility] QJWANNR9097-10-35 06:44:00 Test Item Value Reference Range Interpretation Comments Troponin-I (test code no gt See_Comment [Auto mated message] The = Troponin-I) system which g enerated this result transmit gaye reference range : <=0.40. The reference r ozzy was not used to interpr et this result as satish l/abnormal. [facility] [id number] 06:44:00 Test Item Value Reference Range Interpretation Comments Albumin Lvl (test code = Albumin Lvl) 3.5 3.5-5.0 [facility] [id number] 06:44:00 Test Item Value Reference Range Interpretation Comments Total Protein (test code = Total 7.0 6.4-8.4 Protein) [facility] [id number] 06:44:00 Test Item Value Reference Range Interpretation Comments ALT (test code = ALT) 19 See_Comment [Auto mated message] The system which ge nerated this result transmit gaye reference range : <=65. The reference range was not used to interpr et this result as satish l/abnormal. [facility] [id number] 06:44:00 Test Item Value Reference Range Interpretation Comments AST (test code = AST) 10 See_Comment [Auto mated message] The system which ge nerated this result transmit gaye reference range : <=37. The reference range was not used to interpr et this result as satish l/abnormal. [facility] [id number] 06:44:00 Test Item Value Reference Range Interpretation Comments Alk Phos (test code = Alk Phos) 79 39-136 [facility] [id number] 06:44:00 Test Item Value Reference Range Interpretation Comments Bili Total (test code = Bili Total) 0.4 0.2-1.3 [facility] [id number] 06:44:00 Test Item Value Reference Range Interpretation Comments Bili Direct (test code 0.1 See_Comment [Aut omated message] The = Bili Direct) system which generated this result tra nsmitted reference range : <=0.3. The reference r ozzy was not used to int erpret this result as satish l/abnormal. [facility]2016-07-03 06:44:00 Test Item Value Reference Range Interpretation Comments Globulin (test code = Globulin) 3.5 2.0-4.0 [facility]2016-07-03 06:44:00 Test Item Value Reference Range Interpretation Comments A/G Ratio (test code = A/G Ratio) 1.0 0.7-1.6 [facility]2016-07-03 06:44:00 Test Item Value Reference Range Interpretation Comments Bili Indirect (test 0.3 See_Comment [Automa gaye message] The code = Bili Indirect) system which generated this result tra nsmitted reference range : <=1.0. The reference r ozzy was not used to int erpret this result as normal/abnormal . [facility]2016-07-03 06:44:00 Test Item Value Reference Range Interpretation Comments eGFR (test code = eGFR) 107 [facility]2016-07-03 06:44:00 Test Item Value Reference Range Interpretation Comments BUN (test code = BUN) 8 7-22 [place] [id number] 06:44:00 Test Item Value Reference Range Interpretation Comments Glucose Lvl (test code = Glucose Lvl) 91 70-99 [facility]2016-07-03 06:44:00 Test Item Value Reference Range Interpretation Comments Sodium Lvl (test code = Sodium Lvl) 138 135-145 [facility]2016-07-03 06:44:00 Test Item Value Reference Range Interpretation Comments Creatinine Lvl (test code = Creatinine 0.70 0.50-1.40 Lvl) [facility]2016-07-03 06:44:00 Test Item Value Reference Range Interpretation Comments Potassium Lvl (test code = Potassium 3.3 3.5-5.1 Lvl) [facility]2016-07-03 06:44:00 Test Item Value Reference Range Interpretation Comments CO2 (test code = CO2) 25 24-32 [facility]2016-07-03 06:44:00 Test Item Value Reference Range Interpretation Comments Chloride Lvl (test code = Chloride Lvl) 106 95-109 [facility]2016-07-03 06:44:00 Test Item Value Reference Range Interpretation Comments Calcium Lvl (test code = Calcium Lvl) 8.1 8.5-10.5 [facility]2016-07-03 06:44:00 Test Item Value Reference Range Interpretation Comments AGAP (test code = AGAP) 10.3 10.0-20.0 [facility]2016-07-03 06:44:00 Test Item Value Reference Range Interpretation Comments Magnesium Lvl (test code = Magnesium 2.2 1.8-2.4 Lvl) [facility]iceptbNVONBOKYPMWMC2404-60-05 06:44:00 Test Item Value Reference Range Interpretation Comments S Preg (test code = S Negative *NA*(02/13/16 Preg) 1:44 AM) [facility]OffhgxaSPHUCPJYPL4642-91-91 06:44:00 Test Item Value Reference Range Interpretation Comments Basophils (test code = 0.1 See_Comment [Aut omated message] The Basophils) system which ge nerated this result tra nsmitted reference range : <=1.0. The reference r ozzy was not used to int erpret this result as normal/abnormal . [facility] CenterPrxatayLROKMTSYWX1850-22-67 06:44:00 Test Item Value Reference Range Interpretation Comments Monocytes # (test code 0.3 See_Comment [Aut omated message] The = Monocytes #) system which generated this result tra nsmitted reference range : <=0.8. The reference r ozzy was not used to int erpret this result as normal/abnormal . [facility] CenterYrqbeunYFMNOMQPRM9752-33-99 06:44:00 Test Item Value Reference Range Interpretation Comments Eosinophils # (test code 0.1 See_Comment [A utomated message] The = Eosinophils #) system whic h generated this result tra nsmitted reference range : <=0.5. The reference r ozzy was not used to int erpret this result as normal/abnormal . [facility] CenterOmtrkufZGHTLHFQHE7094-04-09 06:44:00 Test Item Value Reference Range Interpretation Comments Segs-Bands # (test code = Segs-Bands #) 9.3 1.5-8.1 [facility] CenterOciaetbOYWPVUEITO5868-88-76 06:44:00 Test Item Value Reference Range Interpretation Comments Lymphocytes # (test code = Lymphocytes 2.6 1.0-5.5 #) [facility] CenterUmxismhEGCNTWSJKB0166-76-71 06:44:00 Test Item Value Reference Range Interpretation Comments Basophils # (test code 0.0 See_Comment [Aut omated message] The = Basophils #) system which generated this result tra nsmitted reference range : <=0.2. The reference r ozzy was not used to int erpret this result as normal/abnormal . [facility] CenterQcaqbzpBXSZOSRLSL7143-09-58 06:44:00 Test Item Value Reference Range Interpretation Comments Microcyte (test code = 1+ *ABN*(02/13/16 1:44 Microcyte) AM) [facility] CenterTldrxgjDDHUFUJYDK3641-59-46 06:44:00 Test Item Value Reference Range Interpretation Comments Giant Plt (test code Moderate *ABN*(02/13/16 = Giant Plt) 1:44 AM) [facility] CenterAznlilbWLNVQIAAGJ4510-02-73 06:44:00 Test Item Value Reference Range Interpretation Comments Segs (test code = Segs) 75.2 45.0-75.0 [facility] CenterMjzxfqtXTDELSSFSN7656-39-11 06:44:00 Test Item Value Reference Range Interpretation Comments Hypochrom (test code = 1+ (02/13/16 1:44 AM) Hypochrom) [facility] CenterZfyjldmYPOBFYARWC6696-21-22 06:44:00 Test Item Value Reference Range Interpretation Comments Eosinophils (test code = 0.7 See_Comment [A utomated message] The Eosinophils) system which ge nerated this result tra nsmitted reference range : <=4.0. The reference r ozzy was not used to int erpret this result as normal/abnormal . [facility] CenterZbqfqnrFTRNOHNVEX0036-81-47 06:44:00 Test Item Value Reference Range Interpretation Comments Lymphocytes (test code = Lymphocytes) 21.3 20.0-40.0 [facility] CenterTbxymeeSMVCAWQRVR5967-18-91 06:44:00 Test Item Value Reference Range Interpretation Comments Monocytes (test code = Monocytes) 2.7 2.0-12.0 [facility] CenterFqoeicmWIBIKTDZYP6942-46-36 06:44:00 Test Item Value Reference Range Interpretation Comments MPV (test code = MPV) 9.5 7.4-10.4 [facility] CenterJqptbatVHHLCYIIWT6362-15-95 06:44:00 Test Item Value Reference Range Interpretation Comments RDW (test code = RDW) 17.8 11.5-14.5 [facility] CenterYbzvdgfQOLFDBDMGW5957-73-33 06:44:00 Test Item Value Reference Range Interpretation Comments MCV (test code = MCV) 73.2 80.0-98.0 [facility] CenterTadsoriTOAFGRXFKG9702-16-58 06:44:00 Test Item Value Reference Range Interpretation Comments MCH (test code = MCH) 21.9 pg 27.0-31.0 [facility] CenterYwstyvkFCHEXYSVAH6634-75-99 06:44:00 Test Item Value Reference Range Interpretation Comments Hct (test code = Hct) 27.2 36.0-48.0 [facility] CenterCyxjqaxQOVRKDNMOF2169-49-16 06:44:00 Test Item Value Reference Range Interpretation Comments MCHC (test code = MCHC) 29.9 32.0-36.0 [facility] CenterHmguxhgXSRCMOYZBH9171-86-02 06:44:00 Test Item Value Reference Range Interpretation Comments Platelet (test code = Platelet) 400 133-450 [facility] CenterPhhikqiMBVVQSJRAL6832-27-92 06:44:00 Test Item Value Reference Range Interpretation Comments WBC (test code = WBC) 12.4 3.7-10.4 [facility] HospitalUdodtuvHNZDOARNRB8763-38-37 06:44:00 Test Item Value Reference Range Interpretation Comments RBC (test code = RBC) 3.72 4.20-5.40 [facility] HospitalNjwingySSSHUPIIVS1905-30-11 06:44:00 Test Item Value Reference Range Interpretation Comments Hgb (test code = Hgb) 8.1 12.0-16.0 [facility] HospitalBnmgojkPKPFCZEBSG9045-72-32 06:44:00 Test Item Value Reference Range Interpretation Comments PTT (test code = PTT) 27.2 s 22.9-35.8 [facility] HospitalArcbhyvEUEIGVUVNI7772-25-94 06:44:00 Test Item Value Reference Range Interpretation Comments PT (test code = PT) 14.7 s 12.0-14.7 [facility]YyvpjgqIGPRTDGWJK2009-89-67 06:44:00 Test Item Value Reference Range Interpretation Comments INR (test code = INR) 1.12 0.85-1.17 [facility] HZMXDCK9639-18-01 06:44:00 Test Item Value Reference Range Interpretation Comments Antibody Scrn (test Negative (02/13/16 1:44 code = Antibody Scrn) AM) [facility] [employer] SSCIYDG3970-61-34 06:44:00 Test Item Value Reference Range Interpretation Comments ABO/Rh (test code = ABO/Rh) A POS [facility] [employer] RWUFEAQ2691-34-21 06:44:00 Test Item Value Reference Range Interpretation Comments CK MB Index (test 1.6 See_Comment [Automate d message] The code = CK MB Index) system w [facility] generated this result transmit gaye reference range : <=2.5. The reference range was not used to interpr et this result as satish l/abnormal. [employer] QWFURWH5227-04-12 06:44:00 Test Item Value Reference Range Interpretation Comments CK MB (test code = CK MB) 0.9 0.5-3.6 [facility] [employer] WWNTYEP9195-79-79 06:44:00 Test Item Value Reference Range Interpretation Comments Total CK (test code = Total CK) 57 12-191 [facility] [employer]2016-07-03 06:44:00 Test Item Value Reference Range Interpretation Comments Troponin-I (test code no gt See_Comment [Auto mated message] The = Troponin-I) system which g enerated this result transmit gaye reference range : <=0.40. The reference r ozzy was not used to interpr et this result as satish l/abnormal. [employer] [id number] 06:44:00 Test Item Value Reference Range Interpretation Comments Albumin Lvl (test code = Albumin Lvl) 3.5 3.5-5.0 [facility] [employer] TVFBY0539-36-28 06:44:00 Test Item Value Reference Range Interpretation Comments Total Protein (test code = Total 7.0 6.4-8.4 Protein) [facility] [employer] [id number] 06:44:00 Test Item Value Reference Range Interpretation Comments ALT (test code = ALT) 19 See_Comment [Auto mated message] The system which ge nerated this result transmit gaye reference range : <=65. The reference range was not used to interpr et this result as satish l/abnormal. [employer] JXWYK2675-05-48 06:44:00 Test Item Value Reference Range Interpretation Comments AST (test code = AST) 10 See_Comment [Auto mated message] The system which ge nerated this result transmit gaye reference range : <=37. The reference range was not used to interpr et this result as satish l/abnormal. [place] 670646-07-03 06:44:00 Test Item Value Reference Range Interpretation Comments Alk Phos (test code = Alk Phos) 79 39-136 [place] 670646-07-03 06:44:00 Test Item Value Reference Range Interpretation Comments Bili Total (test code = Bili Total) 0.4 0.2-1.3 [place] 670646-07-03 06:44:00 Test Item Value Reference Range Interpretation Comments Bili Direct (test code 0.1 See_Comment [Aut omated message] The = Bili Direct) system which generated this result tra nsmitted reference range : <=0.3. The reference r ozzy was not used to int erpret this result as satish l/abnormal. [place] 670646-07-03 06:44:00 Test Item Value Reference Range Interpretation Comments Globulin (test code = Globulin) 3.5 2.0-4.0 [facility]2016-07-03 06:44:00 Test Item Value Reference Range Interpretation Comments A/G Ratio (test code = A/G Ratio) 1.0 0.7-1.6 [place] 670646-07-03 06:44:00 Test Item Value Reference Range Interpretation Comments Bili Indirect (test 0.3 See_Comment [Automa gaye message] The code = Bili Indirect) system which generated this result tra nsmitted reference range : <=1.0. The reference r ozzy was not used to int erpret this result as normal/abnormal . [facility]2016-07-03 06:44:00 Test Item Value Reference Range Interpretation Comments eGFR (test code = eGFR) 107 [facility]2016-07-03 06:44:00 Test Item Value Reference Range Interpretation Comments BUN (test code = BUN) 8 7-22 [facility]2016-07-03 06:44:00 Test Item Value Reference Range Interpretation Comments Glucose Lvl (test code = Glucose Lvl) 91 70-99 [facility]2016-07-03 06:44:00 Test Item Value Reference Range Interpretation Comments Sodium Lvl (test code = Sodium Lvl) 138 135-145 [place] 670646-07-03 06:44:00 Test Item Value Reference Range Interpretation Comments Creatinine Lvl (test code = Creatinine 0.70 0.50-1.40 Lvl) [facility]2016-07-03 06:44:00 Test Item Value Reference Range Interpretation Comments Potassium Lvl (test code = Potassium 3.3 3.5-5.1 Lvl) [facility]2016-07-03 06:44:00 Test Item Value Reference Range Interpretation Comments CO2 (test code = CO2) 25 24-32 [facility]2016-07-03 06:44:00 Test Item Value Reference Range Interpretation Comments Chloride Lvl (test code = Chloride Lvl) 106 95-109 [facility]2016-07-03 06:44:00 Test Item Value Reference Range Interpretation Comments Calcium Lvl (test code = Calcium Lvl) 8.1 8.5-10.5 [facility]2016-07-03 06:44:00 Test Item Value Reference Range Interpretation Comments AGAP (test code = AGAP) 10.3 10.0-20.0 [facility]2016-07-03 06:44:00 Test Item Value Reference Range Interpretation Comments Magnesium Lvl (test code = Magnesium 2.2 1.8-2.4 Lvl) [facility] HospitalDjmsgihAKARDGEPNTXEP1561-41-05 06:44:00 Test Item Value Reference Range Interpretation Comments S Preg (test code = S Negative *NA*(02/13/16 Preg) 1:44 AM) [facility]AyunjfdJTFKDKDQBP2118-96-39 06:44:00 Test Item Value Reference Range Interpretation Comments Basophils (test code = 0.1 See_Comment [Aut omated message] The Basophils) system which ge nerated this result tra nsmitted reference range : <=1.0. The reference r ozzy was not used to int erpret this result as normal/abnormal . [facility] CenterKlngzicMWKMBHZTGY0047-13-93 06:44:00 Test Item Value Reference Range Interpretation Comments Monocytes # (test code 0.3 See_Comment [Aut omated message] The = Monocytes #) system which generated this result tra nsmitted reference range : <=0.8. The reference r ozzy was not used to int erpret this result as normal/abnormal . [facility] CenterBauocqcMMJGWPHUVW1778-13-93 06:44:00 Test Item Value Reference Range Interpretation Comments Eosinophils # (test code 0.1 See_Comment [A utomated message] The = Eosinophils #) system whic h generated this result tra nsmitted reference range : <=0.5. The reference r ozzy was not used to int erpret this result as normal/abnormal . [facility] CenterFttlpwdZOFOCTMFAT2711-19-60 06:44:00 Test Item Value Reference Range Interpretation Comments Segs-Bands # (test code = Segs-Bands #) 9.3 1.5-8.1 [facility] CenterRvtfomcMEZCSYWPQC2976-14-26 06:44:00 Test Item Value Reference Range Interpretation Comments Lymphocytes # (test code = Lymphocytes 2.6 1.0-5.5 #) [facility] CenterVhdzxohQJBGTHWKWQ7565-84-42 06:44:00 Test Item Value Reference Range Interpretation Comments Basophils # (test code 0.0 See_Comment [Aut omated message] The = Basophils #) system which generated this result tra nsmitted reference range : <=0.2. The reference r ozzy was not used to int erpret this result as normal/abnormal . [facility] CenterPpygaxhJEVYZFDCAL4465-80-53 06:44:00 Test Item Value Reference Range Interpretation Comments Microcyte (test code = 1+ *ABN*(02/13/16 1:44 Microcyte) AM) [facility] CenterUaiqpwrIVGSYWMCLI9685-92-80 06:44:00 Test Item Value Reference Range Interpretation Comments Giant Plt (test code Moderate *ABN*(02/13/16 = Giant Plt) 1:44 AM) [facility] CenterUjdhdiyFJXFCOUUNX7227-39-56 06:44:00 Test Item Value Reference Range Interpretation Comments Segs (test code = Segs) 75.2 45.0-75.0 [facility] CenterBwebwjhXKUNXOSFPL2483-44-65 06:44:00 Test Item Value Reference Range Interpretation Comments Hypochrom (test code = 1+ (02/13/16 1:44 AM) Hypochrom) [facility] CenterZhxeusnXHCJNTKYCR2676-98-90 06:44:00 Test Item Value Reference Range Interpretation Comments Eosinophils (test code = 0.7 See_Comment [A utomated message] The Eosinophils) system which ge nerated this result tra nsmitted reference range : <=4.0. The reference r ozzy was not used to int erpret this result as normal/abnormal . [facility] CenterKwwcbkiEOCYEESNAM5485-42-18 06:44:00 Test Item Value Reference Range Interpretation Comments Lymphocytes (test code = Lymphocytes) 21.3 20.0-40.0 [facility] CenterBilskcgNRRUUFEEMU4040-60-84 06:44:00 Test Item Value Reference Range Interpretation Comments Monocytes (test code = Monocytes) 2.7 2.0-12.0 [facility] CenterXkjzuwaXYVVLWEGYX2281-45-11 06:44:00 Test Item Value Reference Range Interpretation Comments MPV (test code = MPV) 9.5 7.4-10.4 [facility] CenterVsswjgaUFTDDFIHLR8930-74-01 06:44:00 Test Item Value Reference Range Interpretation Comments RDW (test code = RDW) 17.8 11.5-14.5 [facility] CenterVjcsyyfGVAOOURDLB0900-21-47 06:44:00 Test Item Value Reference Range Interpretation Comments MCV (test code = MCV) 73.2 80.0-98.0 [facility] CenterAirkhyoDSNHQUQKUZ4208-11-35 06:44:00 Test Item Value Reference Range Interpretation Comments MCH (test code = MCH) 21.9 pg 27.0-31.0 [facility] CenterGvpsqntHIZURWQCUV2283-67-06 06:44:00 Test Item Value Reference Range Interpretation Comments Hct (test code = Hct) 27.2 36.0-48.0 [facility] CenterQixsjxwKBDKFEGZHK5215-23-79 06:44:00 Test Item Value Reference Range Interpretation Comments MCHC (test code = MCHC) 29.9 32.0-36.0 [facility] CenterLrksjejQGTCCWZSTM8063-44-47 06:44:00 Test Item Value Reference Range Interpretation Comments Platelet (test code = Platelet) 400 133-450 [facility] CenterPtwvpjzAWLBYYDZTR6353-15-76 06:44:00 Test Item Value Reference Range Interpretation Comments WBC (test code = WBC) 12.4 3.7-10.4 [facility] CenterBqxrmdxSANZQESACU3215-52-79 06:44:00 Test Item Value Reference Range Interpretation Comments RBC (test code = RBC) 3.72 4.20-5.40 [facility] CenterWloyhdeLDXOEUDRPX0805-25-68 06:44:00 Test Item Value Reference Range Interpretation Comments Hgb (test code = Hgb) 8.1 12.0-16.0 [facility] CenterGkxnqvwIACSECRDQF8165-87-59 06:44:00 Test Item Value Reference Range Interpretation Comments PTT (test code = PTT) 27.2 s 22.9-35.8 [facility] CenterZzuormxFEDDFNGQLU1721-94-66 06:44:00 Test Item Value Reference Range Interpretation Comments PT (test code = PT) 14.7 s 12.0-14.7 [facility] CenterQuwshrjHHLNEQMUPF9661-98-81 06:44:00 Test Item Value Reference Range Interpretation Comments INR (test code = INR) 1.12 0.85-1.17 [facility] CenterEjlsqdkUUYKQRKIHF3705-58-08 06:44:00 Test Item Value Reference Range Interpretation Comments Eosinophils # (test code = Eosinophils 0.1 <=0.5 #) [facility] CenterTqajccqJLWJIIHBXS5865-69-48 06:44:00 Test Item Value Reference Range Interpretation Comments Segs-Bands # (test code = Segs-Bands #) 9.3 1.5-8.1 [facility] CenterPmtfjonWHSYNWMZGY2020-19-66 06:44:00 Test Item Value Reference Range Interpretation Comments Lymphocytes # (test code = Lymphocytes 2.6 1.0-5.5 #) [facility] CenterRjbagfdWSIKATDQVU1350-39-32 06:44:00 Test Item Value Reference Range Interpretation Comments Basophils # (test code = Basophils #) 0.0 <=0.2 [facility] CenterPwjtmjtUCGLHTKGFX9508-50-34 06:44:00 Test Item Value Reference Range Interpretation Comments Microcyte (test code = 1+ *ABN*(02/13/16 1:44 Microcyte) AM) [facility] CenterPwanqyaUDVWRRGJYM7798-40-22 06:44:00 Test Item Value Reference Range Interpretation Comments Giant Plt (test code Moderate *ABN*(02/13/16 = Giant Plt) 1:44 AM) [facility] CenterXhsygzeKGBXXXTSVA6539-47-35 06:44:00 Test Item Value Reference Range Interpretation Comments Segs (test code = Segs) 75.2 45.0-75.0 [facility] CenterAjqhjqtMMOAKARCOF3609-28-99 06:44:00 Test Item Value Reference Range Interpretation Comments Hypochrom (test code = 1+ (02/13/16 1:44 AM) Hypochrom) [facility] CenterEbeeyhwUEHDAJCWPQ3128-25-42 06:44:00 Test Item Value Reference Range Interpretation Comments Eosinophils (test code = Eosinophils) 0.7 <=4.0 [facility] CenterHahphykWFLGWLEPWF6912-25-80 06:44:00 Test Item Value Reference Range Interpretation Comments Lymphocytes (test code = Lymphocytes) 21.3 20.0-40.0 [facility] CenterBqcrbxkPYKEJTNMEC6403-95-34 06:44:00 Test Item Value Reference Range Interpretation Comments Monocytes (test code = Monocytes) 2.7 2.0-12.0 [facility] CenterHlundwhMJZJDSYZAT3051-25-89 06:44:00 Test Item Value Reference Range Interpretation Comments MPV (test code = MPV) 9.5 7.4-10.4 [facility] CenterRvfktfjKYXGBMTCRK4214-74-62 06:44:00 Test Item Value Reference Range Interpretation Comments RDW (test code = RDW) 17.8 11.5-14.5 [facility] CenterXdcqgndXCKGZNMSLF5641-93-87 06:44:00 Test Item Value Reference Range Interpretation Comments MCV (test code = MCV) 73.2 80.0-98.0 [facility] CenterZwilppyFJQUBHGPVT6891-66-69 06:44:00 Test Item Value Reference Range Interpretation Comments MCH (test code = MCH) 21.9 pg 27.0-31.0 [facility] CenterUothassUKNWIJIWBQ4678-40-04 06:44:00 Test Item Value Reference Range Interpretation Comments Hct (test code = Hct) 27.2 36.0-48.0 [facility] CenterTghvqyyRRUNWVTSDU8071-72-46 06:44:00 Test Item Value Reference Range Interpretation Comments MCHC (test code = MCHC) 29.9 32.0-36.0 [facility] CenterFiwyvraXTYCXGYWQL1601-89-67 06:44:00 Test Item Value Reference Range Interpretation Comments Platelet (test code = Platelet) 400 133-450 [facility] CenterAvxxecbJOPMOYSMMV8809-59-13 06:44:00 Test Item Value Reference Range Interpretation Comments WBC (test code = WBC) 12.4 3.7-10.4 [facility] CenterRpfkddhBTRJDGMQQE3093-62-15 06:44:00 Test Item Value Reference Range Interpretation Comments RBC (test code = RBC) 3.72 4.20-5.40 [facility] CenterGiwfibmYYZDASWGAM1320-35-33 06:44:00 Test Item Value Reference Range Interpretation Comments Hgb (test code = Hgb) 8.1 12.0-16.0 [employer] BiosystemsBjhaemmOGELWYFKXO2785-03-00 06:44:00 Test Item Value Reference Range Interpretation Comments PTT (test code = PTT) 27.2 s 22.9-35.8 [employer] BiosystemsKxhabrwMRGOHSHAVV9865-70-07 06:44:00 Test Item Value Reference Range Interpretation Comments PT (test code = PT) 14.7 s 12.0-14.7 [employer] BiosystemsGexldrqJVNEIWNGUE8777-15-78 06:44:00 Test Item Value Reference Range Interpretation Comments INR (test code = INR) 1.12 0.85-1.17 [facility] THWWYTR5246-76-64 06:44:00 Test Item Value Reference Range Interpretation Comments Antibody Scrn (test Negative (02/13/16 1:44 code = Antibody Scrn) AM) [facility] WPQJUBY1895-10-11 06:44:00 Test Item Value Reference Range Interpretation Comments ABO/Rh (test code = ABO/Rh) A POS [employer]2016-07-03 06:44:00 Test Item Value Reference Range Interpretation Comments CK MB Index (test code = CK MB Index) 1.6 <=2.5 [employer]2016-07-03 06:44:00 Test Item Value Reference Range Interpretation Comments CK MB (test code = CK MB) 0.9 0.5-3.6 [employer]2016-07-03 06:44:00 Test Item Value Reference Range Interpretation Comments Total CK (test code = Total CK) 57 12-191 [employer]2016-07-03 06:44:00 Test Item Value Reference Range Interpretation Comments Troponin-I (test code = Troponin-I) no gt <=0.40 [employer] [id number] 06:44:00 Test Item Value Reference Range Interpretation Comments Albumin Lvl (test code = Albumin Lvl) 3.5 3.5-5.0 [employer]2016-07-03 06:44:00 Test Item Value Reference Range Interpretation Comments Total Protein (test code = Total 7.0 6.4-8.4 Protein) [facility]2016-07-03 06:44:00 Test Item Value Reference Range Interpretation Comments ALT (test code = ALT) 19 <=65 [facility]2016-07-03 06:44:00 Test Item Value Reference Range Interpretation Comments AST (test code = AST) 10 <=37 [facility]2016-07-03 06:44:00 Test Item Value Reference Range Interpretation Comments Alk Phos (test code = Alk Phos) 79 39-136 [facility]2016-07-03 06:44:00 Test Item Value Reference Range Interpretation Comments Bili Total (test code = Bili Total) 0.4 0.2-1.3 [facility]2016-07-03 06:44:00 Test Item Value Reference Range Interpretation Comments Bili Direct (test code = Bili Direct) 0.1 <=0.3 [facility]2016-07-03 06:44:00 Test Item Value Reference Range Interpretation Comments Globulin (test code = Globulin) 3.5 2.0-4.0 [facility]2016-07-03 06:44:00 Test Item Value Reference Range Interpretation Comments A/G Ratio (test code = A/G Ratio) 1.0 0.7-1.6 [facility]2016-07-03 06:44:00 Test Item Value Reference Range Interpretation Comments Bili Indirect (test code = Bili 0.3 <=1.0 Indirect) [facility]2016-07-03 06:44:00 Test Item Value Reference Range Interpretation Comments eGFR (test code = eGFR) 107 [facility]2016-07-03 06:44:00 Test Item Value Reference Range Interpretation Comments BUN (test code = BUN) 8 7-22 [facility]2016-07-03 06:44:00 Test Item Value Reference Range Interpretation Comments Glucose Lvl (test code = Glucose Lvl) 91 70-99 [facility]2016-07-03 06:44:00 Test Item Value Reference Range Interpretation Comments Sodium Lvl (test code = Sodium Lvl) 138 135-145 [facility]2016-07-03 06:44:00 Test Item Value Reference Range Interpretation Comments Creatinine Lvl (test code = Creatinine 0.70 0.50-1.40 Lvl) [facility]2016-07-03 06:44:00 Test Item Value Reference Range Interpretation Comments Potassium Lvl (test code = Potassium 3.3 3.5-5.1 Lvl) [facility]2016-07-03 06:44:00 Test Item Value Reference Range Interpretation Comments CO2 (test code = CO2) 25 24-32 [facility]2016-07-03 06:44:00 Test Item Value Reference Range Interpretation Comments Chloride Lvl (test code = Chloride Lvl) 106 95-109 [facility]2016-07-03 06:44:00 Test Item Value Reference Range Interpretation Comments Calcium Lvl (test code = Calcium Lvl) 8.1 8.5-10.5 [facility]2016-07-03 06:44:00 Test Item Value Reference Range Interpretation Comments AGAP (test code = AGAP) 10.3 10.0-20.0 [facility]2016-07-03 06:44:00 Test Item Value Reference Range Interpretation Comments Magnesium Lvl (test code = Magnesium 2.2 1.8-2.4 Lvl) [place] [id number] 06:44:00 Test Item Value Reference Range Interpretation Comments S Preg (test code = S Negative *NA*(02/13/16 Preg) 1:44 AM) [id number] 06:44:00 Test Item Value Reference Range Interpretation Comments Basophils (test code = Basophils) 0.1 <=1.0 [facility] CenterBlmedaeKXBPMANZGK7327-99-03 06:44:00 Test Item Value Reference Range Interpretation Comments Monocytes # (test code = Monocytes #) 0.3 <=0.8 [facility]2015-01-23 07:51:00 Test Item Value Reference Range Interpretation Comments Globulin (test code = Globulin) 3.9 2.0-4.0 [facility]2015-01-23 07:51:00 Test Item Value Reference Range Interpretation Comments A/G Ratio (test code = A/G Ratio) 0.9 0.7-1.6 [place] [id number] 07:51:00 Test Item Value Reference Range Interpretation Comments hCG Tot (test code = hCG Tot) no gt [facility]IugprcxOROZCMWAVF8245-70-32 07:51:00 Test Item Value Reference Range Interpretation Comments MCHC (test code = MCHC) 33.8 32.0-36.0 [facility] CenterRgqvzanPGOXEYCDKU0005-08-85 07:51:00 Test Item Value Reference Range Interpretation Comments MCH (test code = MCH) 30.3 pg 27.0-31.0 [facility] CenterGywvfylVWTZPTCFTA6758-88-27 07:51:00 Test Item Value Reference Range Interpretation Comments RDW (test code = RDW) 13.0 11.5-14.5 [facility] CenterRghxjgbVARSWCPZUP1422-07-41 07:51:00 Test Item Value Reference Range Interpretation Comments MPV (test code = MPV) 8.4 7.4-10.4 [facility] CenterJdjjciqPBZOEJRWAA3673-74-66 07:51:00 Test Item Value Reference Range Interpretation Comments Platelet (test code = Platelet) 356 133-450 [facility] CenterBpgyjpzMLNDDIHCOV9216-43-24 07:51:00 Test Item Value Reference Range Interpretation Comments RBC (test code = RBC) 4.45 4.20-5.40 [facility] CenterBujlhqeBQTDGKKBHM0970-45-17 07:51:00 Test Item Value Reference Range Interpretation Comments WBC (test code = WBC) 12.9 3.7-10.4 [facility] CenterQttxxnoNDQJKOMMWH5255-59-27 07:51:00 Test Item Value Reference Range Interpretation Comments Hgb (test code = Hgb) 13.5 12.0-16.0 [facility] CenterYbkpbeeJWORHIGZJE5138-37-10 07:51:00 Test Item Value Reference Range Interpretation Comments MCV (test code = MCV) 89.7 80.0-98.0 [facility] CenterQbulrioXIJATIVRHW3119-29-75 07:51:00 Test Item Value Reference Range Interpretation Comments Hct (test code = Hct) 39.9 36.0-48.0 [facility] CenterSstopjmDAETLWYIRP5452-03-00 07:51:00 Test Item Value Reference Range Interpretation Comments Eosinophils # (test code 0.3 See_Comment [A utomated message] The = Eosinophils #) system whic h generated this result tra nsmitted reference range : <=0.5. The reference r ozzy was not used to int erpret this result as normal/abnormal . [facility] CenterOjsrbhjEJNZYGEFIT4673-19-03 07:51:00 Test Item Value Reference Range Interpretation Comments Lymphocytes # (test code = Lymphocytes 3.6 1.0-5.5 #) [facility] CenterMvhvvarARUNJPQTVC9883-56-07 07:51:00 Test Item Value Reference Range Interpretation Comments Monocytes # (test code 0.7 See_Comment [Aut omated message] The = Monocytes #) system which generated this result tra nsmitted reference range : <=0.8. The reference r ozzy was not used to int erpret this result as normal/abnormal . [facility] CenterXdmexsgUYIQYRPEOU6130-52-18 07:51:00 Test Item Value Reference Range Interpretation Comments Segs (test code = Segs) 63.9 45.0-75.0 [facility] CenterJgasztjFJHOUFALBX4256-14-27 07:51:00 Test Item Value Reference Range Interpretation Comments Segs-Bands # (test code = Segs-Bands #) 8.2 1.5-8.1 [facility] CenterNwsfdbbUZWIDGNWJN3147-09-47 07:51:00 Test Item Value Reference Range Interpretation Comments Basophils (test code = 0.7 See_Comment [Aut omated message] The Basophils) system which ge nerated this result tra nsmitted reference range : <=1.0. The reference r ozzy was not used to int erpret this result as normal/abnormal . [facility] CenterJvsxvhqCTPNOMOOKU1259-26-26 07:51:00 Test Item Value Reference Range Interpretation Comments Monocytes (test code = Monocytes) 5.4 2.0-12.0 [facility] CenterQzozzklLKWBJCESSD5757-48-66 07:51:00 Test Item Value Reference Range Interpretation Comments Eosinophils (test code = 2.3 See_Comment [A utomated message] The Eosinophils) system which ge nerated this result tra nsmitted reference range : <=4.0. The reference r ozzy was not used to int erpret this result as normal/abnormal . [facility] CenterBqddbymWBIDPZUPPV3179-51-98 07:51:00 Test Item Value Reference Range Interpretation Comments Lymphocytes (test code = Lymphocytes) 27.7 20.0-40.0 [facility] CenterQpikaioBQRJSIGRHU2719-63-05 07:51:00 Test Item Value Reference Range Interpretation Comments Basophils # (test code 0.1 See_Comment [Aut omated message] The = Basophils #) system which generated this result tra nsmitted reference range : <=0.2. The reference r ozzy was not used to int erpret this result as normal/abnormal . [facility]2015-01-23 07:51:00 Test Item Value Reference Range Interpretation Comments UA Urobilinogen (test code = UA 1.0 0.1-1.0 Urobilinogen) [facility] AND [id number] 07:51:00 Test Item Value Reference Range Interpretation Comments UA Turbidity (test code Cloudy *ABN*(09/04/14 = UA Turbidity) 1:51 AM) [facility] AND [id number] 07:51:00 Test Item Value Reference Range Interpretation Comments UA Color (test code = Red *ABN*(09/04/14 1:51 UA Color) AM) [facility] AND [id number] 07:51:00 Test Item Value Reference Range Interpretation Comments UA Ketones (test code Negative *NA*(09/04/14 = UA Ketones) 1:51 AM) [facility] AND [id number] 07:51:00 Test Item Value Reference Range Interpretation Comments UA Glucose (test code Negative (09/04/14 1:51 = UA Glucose) AM) [facility] AND [id number] 07:51:00 Test Item Value Reference Range Interpretation Comments UA Protein (test code = Trace *ABN*(09/04/14 UA Protein) 1:51 AM) [facility] AND [id number] 07:51:00 Test Item Value Reference Range Interpretation Comments UA pH (test code = UA pH) 8.0 1 5.0-8.0 [facility] AND [id number] 07:51:00 Test Item Value Reference Range Interpretation Comments UA Spec Grav (test code = UA Spec 1.015 1 Grav) [facility] AND [id number] 07:51:00 Test Item Value Reference Range Interpretation Comments UA Bili (test code = Negative *NA*(09/04/14 UA Bili) 1:51 AM) [facility] AND [id number] 07:51:00 Test Item Value Reference Range Interpretation Comments UA Blood (test code = Large *ABN*(09/04/14 UA Blood) 1:51 AM) [facility] AND [id number] 07:51:00 Test Item Value Reference Range Interpretation Comments UA Leuk Est (test Negative (09/04/14 1:51 code = UA Leuk Est) AM) [facility] AND [id number] 07:51:00 Test Item Value Reference Range Interpretation Comments UA Nitrite (test code Negative (09/04/14 1:51 = UA Nitrite) AM) [facility] AND [id number] 07:51:00 Test Item Value Reference Range Interpretation Comments UA Amorph Joselin (test code = UA Few /HPF Amorph Joselin) [facility] AND [id number] 07:51:00 Test Item Value Reference Range Interpretation Comments UA RBC (test code 51-100 /HPF See_Comment [Automate d message] The = UA RBC) system which ge nerated this result tra nsmitted reference range : <=2. The reference r ozzy was not used to int erpret this result as normal/abnormal . [facility] AND [id number] 07:51:00 Test Item Value Reference Range Interpretation Comments UA WBC (test code = UA WBC) 6-10 /HPF [facility] AND [id number] 07:51:00 Test Item Value Reference Range Interpretation Comments UA Bacteria (test code = UA Few /HPF Bacteria) [facility] AND [id number] 07:51:00 Test Item Value Reference Range Interpretation Comments UA Sq Epi (test code = UA Sq Occasional /LPF Epi) [facility] [employer] [id number] 07:51:00 Test Item Value Reference Range Interpretation Comments ABO/Rh (test code = ABO/Rh) A POS [facility] [employer] [id number] 07:51:00 Test Item Value Reference Range Interpretation Comments Antibody Scrn (test Negative (09/04/14 1:51 code = Antibody Scrn) AM) [facility] [place] [id number] 07:51:00 Test Item Value Reference Range Interpretation Comments Albumin Lvl (test code = Albumin Lvl) 3.4 3.5-5.0 [facility] [place] [id number] 07:51:00 Test Item Value Reference Range Interpretation Comments Alk Phos (test code = Alk Phos) 64 39-136 [facility] [place] [id number] 07:51:00 Test Item Value Reference Range Interpretation Comments ALT (test code = ALT) 18 See_Comment [Auto mated message] The system which ge nerated this result transmit gaye reference range : <=65. The reference range was not used to interpr et this result as satish l/abnormal. [facility]2015-01-23 07:51:00 Test Item Value Reference Range Interpretation Comments AST (test code = AST) 12 See_Comment [Auto mated message] The system which ge nerated this result transmit gaye reference range : <=37. The reference range was not used to interpr et this result as satish l/abnormal. [facility]2015-01-23 07:51:00 Test Item Value Reference Range Interpretation Comments eGFR (test code = eGFR) 93 [facility]2015-01-23 07:51:00 Test Item Value Reference Range Interpretation Comments Bili Total (test code = Bili Total) 0.3 0.2-1.3 [facility]2015-01-23 07:51:00 Test Item Value Reference Range Interpretation Comments Chloride Lvl (test code = Chloride Lvl) 108 95-109 [facility]2015-01-23 07:51:00 Test Item Value Reference Range Interpretation Comments Sodium Lvl (test code = Sodium Lvl) 138 135-145 [facility]2015-01-23 07:51:00 Test Item Value Reference Range Interpretation Comments Potassium Lvl (test code = Potassium 3.9 3.5-5.1 Lvl) [facility]2015-01-23 07:51:00 Test Item Value Reference Range Interpretation Comments CO2 (test code = CO2) 22 24-32 [facility]2015-01-23 07:51:00 Test Item Value Reference Range Interpretation Comments Calcium Lvl (test code = Calcium Lvl) 8.8 8.5-10.5 [facility]2015-01-23 07:51:00 Test Item Value Reference Range Interpretation Comments Glucose Lvl (test code = Glucose Lvl) 98 70-99 [facility]2015-01-23 07:51:00 Test Item Value Reference Range Interpretation Comments Total Protein (test code = Total 7.3 6.4-8.4 Protein) [facility]2015-01-23 07:51:00 Test Item Value Reference Range Interpretation Comments BUN (test code = BUN) 12 7-22 [place] [id number] 07:51:00 Test Item Value Reference Range Interpretation Comments Creatinine Lvl (test code = Creatinine 0.8 0.5-1.4 Lvl) [facility]2015-01-23 07:51:00 Test Item Value Reference Range Interpretation Comments AGAP (test code = AGAP) 11.9 10.0-20.0 [facility]2015-01-23 07:51:00 Test Item Value Reference Range Interpretation Comments B/C Ratio (test code = B/C Ratio) 15 6-25 [facility]2015-01-23 07:51:00 Test Item Value Reference Range Interpretation Comments Globulin (test code = Globulin) 3.9 2.0-4.0 [facility]2015-01-23 07:51:00 Test Item Value Reference Range Interpretation Comments A/G Ratio (test code = A/G Ratio) 0.9 0.7-1.6 [place] [id number] 07:51:00 Test Item Value Reference Range Interpretation Comments hCG Tot (test code = hCG Tot) no gt [id number] 07:51:00 Test Item Value Reference Range Interpretation Comments MCHC (test code = MCHC) 33.8 32.0-36.0 [facility] C[id number] 07:51:00 Test Item Value Reference Range Interpretation Comments MCH (test code = MCH) 30.3 pg 27.0-31.0 [facility] CenterJyexzhtRKNWDQQEHE6638-22-70 07:51:00 Test Item Value Reference Range Interpretation Comments RDW (test code = RDW) 13.0 11.5-14.5 [facility] CenterPesludhVQBRVQJLDK5386-32-46 07:51:00 Test Item Value Reference Range Interpretation Comments MPV (test code = MPV) 8.4 7.4-10.4 [facility] CenterIhzkgkuTYXTRVBEQN2882-05-32 07:51:00 Test Item Value Reference Range Interpretation Comments Platelet (test code = Platelet) 356 133-450 [facility] CenterYisdaskPONYWOTDAR2039-24-00 07:51:00 Test Item Value Reference Range Interpretation Comments RBC (test code = RBC) 4.45 4.20-5.40 [facility] CenterTdzxgdrTNQWGLJGPK1823-66-74 07:51:00 Test Item Value Reference Range Interpretation Comments WBC (test code = WBC) 12.9 3.7-10.4 [facility] CenterNykbdxqRSMHCHHCJK3712-56-77 07:51:00 Test Item Value Reference Range Interpretation Comments Hgb (test code = Hgb) 13.5 12.0-16.0 [facility] CenterCwayqgwVYMUKZXPYQ4014-10-45 07:51:00 Test Item Value Reference Range Interpretation Comments MCV (test code = MCV) 89.7 80.0-98.0 [facility] CenterLfblnyoKRTJEQHUTJ2458-99-56 07:51:00 Test Item Value Reference Range Interpretation Comments Hct (test code = Hct) 39.9 36.0-48.0 [facility] CenterAbdstvgHKEGKBZMYX0525-92-52 07:51:00 Test Item Value Reference Range Interpretation Comments Eosinophils # (test code 0.3 See_Comment [A utomated message] The = Eosinophils #) system whic h generated this result tra nsmitted reference range : <=0.5. The reference r ozzy was not used to int erpret this result as normal/abnormal . [facility] CenterBquyzncDSYEUXAUOW1226-48-04 07:51:00 Test Item Value Reference Range Interpretation Comments Lymphocytes # (test code = Lymphocytes 3.6 1.0-5.5 #) [facility] CenterCsggodbBUICNBASYZ1299-43-60 07:51:00 Test Item Value Reference Range Interpretation Comments Monocytes # (test code 0.7 See_Comment [Aut omated message] The = Monocytes #) system which generated this result tra nsmitted reference range : <=0.8. The reference r ozzy was not used to int erpret this result as normal/abnormal . [facility] CenterGtahlipRSVRWGGSQS9994-13-45 07:51:00 Test Item Value Reference Range Interpretation Comments Segs (test code = Segs) 63.9 45.0-75.0 [facility] CenterWleihsoNTVPJZTONS1384-74-81 07:51:00 Test Item Value Reference Range Interpretation Comments Segs-Bands # (test code = Segs-Bands #) 8.2 1.5-8.1 [facility] CenterCtiansbCPFEQHIBRS0699-57-26 07:51:00 Test Item Value Reference Range Interpretation Comments Basophils (test code = 0.7 See_Comment [Aut omated message] The Basophils) system which ge nerated this result tra nsmitted reference range : <=1.0. The reference r ozzy was not used to int erpret this result as normal/abnormal . [facility] CenterXnyqyrwGLOJTTUPIG2641-70-68 07:51:00 Test Item Value Reference Range Interpretation Comments Monocytes (test code = Monocytes) 5.4 2.0-12.0 [facility] CenterGbvnkhcDGPOFVFQEJ3541-27-79 07:51:00 Test Item Value Reference Range Interpretation Comments Eosinophils (test code = 2.3 See_Comment [A utomated message] The Eosinophils) system which ge nerated this result tra nsmitted reference range : <=4.0. The reference r ozzy was not used to int erpret this result as normal/abnormal . [facility] [id number] 07:51:00 Test Item Value Reference Range Interpretation Comments Lymphocytes (test code = Lymphocytes) 27.7 20.0-40.0 [facility] CenterGmkjezpYRWCMJLGJV4597-66-65 07:51:00 Test Item Value Reference Range Interpretation Comments Basophils # (test code 0.1 See_Comment [Aut omated message] The = Basophils #) system which generated this result tra nsmitted reference range : <=0.2. The reference r ozzy was not used to int erpret this result as normal/abnormal . [facility]2015-01-23 07:51:00 Test Item Value Reference Range Interpretation Comments UA Urobilinogen (test code = UA 1.0 0.1-1.0 Urobilinogen) [facility] AND [id number] 07:51:00 Test Item Value Reference Range Interpretation Comments UA Turbidity (test code Cloudy *ABN*(09/04/14 = UA Turbidity) 1:51 AM) [facility]2015-01-23 07:51:00 Test Item Value Reference Range Interpretation Comments UA Color (test code = Red *ABN*(09/04/14 1:51 UA Color) AM) [facility]2015-01-23 07:51:00 Test Item Value Reference Range Interpretation Comments UA Ketones (test code Negative *NA*(09/04/14 = UA Ketones) 1:51 AM) [facility] AND [id number] 07:51:00 Test Item Value Reference Range Interpretation Comments UA Glucose (test code Negative (09/04/14 1:51 = UA Glucose) AM) [facility] AND [id number] 07:51:00 Test Item Value Reference Range Interpretation Comments UA Protein (test code = Trace *ABN*(09/04/14 UA Protein) 1:51 AM) [facility] AND [id number] 07:51:00 Test Item Value Reference Range Interpretation Comments UA pH (test code = UA pH) 8.0 1 5.0-8.0 [facility] AND [id number] 07:51:00 Test Item Value Reference Range Interpretation Comments UA Spec Grav (test code = UA Spec 1.015 1 Grav) [facility] AND [id number] 07:51:00 Test Item Value Reference Range Interpretation Comments UA Bili (test code = Negative *NA*(09/04/14 UA Bili) 1:51 AM) [facility] AND [id number] 07:51:00 Test Item Value Reference Range Interpretation Comments UA Blood (test code = Large *ABN*(09/04/14 UA Blood) 1:51 AM) [facility] AND [id number] 07:51:00 Test Item Value Reference Range Interpretation Comments UA Leuk Est (test Negative (09/04/14 1:51 code = UA Leuk Est) AM) [facility] AND [id number] 07:51:00 Test Item Value Reference Range Interpretation Comments UA Nitrite (test code Negative (09/04/14 1:51 = UA Nitrite) AM) [facility] AND [id number] 07:51:00 Test Item Value Reference Range Interpretation Comments UA Amorph Joselin (test code = UA Few /HPF Amorph Joselin) [facility] AND [id number] 07:51:00 Test Item Value Reference Range Interpretation Comments UA RBC (test code 51-100 /HPF See_Comment [Automate d message] The = UA RBC) system which ge nerated this result tra nsmitted reference range : <=2. The reference r ozzy was not used to int erpret this result as normal/abnormal . [facility] AND [id number] 07:51:00 Test Item Value Reference Range Interpretation Comments UA WBC (test code = UA WBC) 6-10 /HPF [facility] AND [id number] 07:51:00 Test Item Value Reference Range Interpretation Comments UA Bacteria (test code = UA Few /HPF Bacteria) [facility] [id number] 07:51:00 Test Item Value Reference Range Interpretation Comments UA Sq Epi (test code = UA Sq Occasional /LPF Epi) [facility] [employer] [id number] 07:51:00 Test Item Value Reference Range Interpretation Comments ABO/Rh (test code = ABO/Rh) A POS [facility] [employer] [id number] 07:51:00 Test Item Value Reference Range Interpretation Comments Antibody Scrn (test Negative (09/04/14 1:51 code = Antibody Scrn) AM) [facility] [employer] [id number] 07:51:00 Test Item Value Reference Range Interpretation Comments Albumin Lvl (test code = Albumin Lvl) 3.4 3.5-5.0 [facility] [employer] [id number] 07:51:00 Test Item Value Reference Range Interpretation Comments Alk Phos (test code = Alk Phos) 64 39-136 [facility] [place] [id number] 07:51:00 Test Item Value Reference Range Interpretation Comments ALT (test code = ALT) 18 See_Comment [Auto mated message] The system which ge nerated this result transmit gaye reference range : <=65. The reference range was not used to interpr et this result as satish l/abnormal. [facility] [employer] [id number] 07:51:00 Test Item Value Reference Range Interpretation Comments AST (test code = AST) 12 See_Comment [Auto mated message] The system which ge nerated this result transmit gaye reference range : <=37. The reference range was not used to interpr et this result as satish l/abnormal. [facility]2015-01-23 07:51:00 Test Item Value Reference Range Interpretation Comments eGFR (test code = eGFR) 93 [facility] [employer] [id number] 07:51:00 Test Item Value Reference Range Interpretation Comments Bili Total (test code = Bili Total) 0.3 0.2-1.3 [facility] [place] [id number] 07:51:00 Test Item Value Reference Range Interpretation Comments Chloride Lvl (test code = Chloride Lvl) 108 95-109 [facility]2015-01-23 07:51:00 Test Item Value Reference Range Interpretation Comments Sodium Lvl (test code = Sodium Lvl) 138 135-145 [facility]2015-01-23 07:51:00 Test Item Value Reference Range Interpretation Comments Potassium Lvl (test code = Potassium 3.9 3.5-5.1 Lvl) [facility]2015-01-23 07:51:00 Test Item Value Reference Range Interpretation Comments CO2 (test code = CO2) 22 24-32 [facility]2015-01-23 07:51:00 Test Item Value Reference Range Interpretation Comments Calcium Lvl (test code = Calcium Lvl) 8.8 8.5-10.5 [facility]2015-01-23 07:51:00 Test Item Value Reference Range Interpretation Comments Glucose Lvl (test code = Glucose Lvl) 98 70-99 [facility]2015-01-23 07:51:00 Test Item Value Reference Range Interpretation Comments Total Protein (test code = Total 7.3 6.4-8.4 Protein) [facility]2015-01-23 07:51:00 Test Item Value Reference Range Interpretation Comments BUN (test code = BUN) 12 7-22 [facility]2015-01-23 07:51:00 Test Item Value Reference Range Interpretation Comments Creatinine Lvl (test code = Creatinine 0.8 0.5-1.4 Lvl) [facility]2015-01-23 07:51:00 Test Item Value Reference Range Interpretation Comments AGAP (test code = AGAP) 11.9 10.0-20.0 [facility]2015-01-23 07:51:00 Test Item Value Reference Range Interpretation Comments B/C Ratio (test code = B/C Ratio) 15 6-25 [facility]2015-01-23 07:51:00 Test Item Value Reference Range Interpretation Comments Globulin (test code = Globulin) 3.9 2.0-4.0 [facility]2015-01-23 07:51:00 Test Item Value Reference Range Interpretation Comments A/G Ratio (test code = A/G Ratio) 0.9 0.7-1.6 [id number] 07:51:00 Test Item Value Reference Range Interpretation Comments hCG Tot (test code = hCG Tot) no gt [id number] 07:51:00 Test Item Value Reference Range Interpretation Comments MCHC (test code = MCHC) 33.8 32.0-36.0 [facility] CenterWkihfiyMRRCZCBXSF9560-07-06 07:51:00 Test Item Value Reference Range Interpretation Comments MCH (test code = MCH) 30.3 pg 27.0-31.0 [facility] Cent[id number] 07:51:00 Test Item Value Reference Range Interpretation Comments RDW (test code = RDW) 13.0 11.5-14.5 [facility] [facility]CitjxxmHNBUQXTUAN9419-12-13 07:51:00 Test Item Value Reference Range Interpretation Comments MPV (test code = MPV) 8.4 7.4-10.4 [facility]PvfzanwYQLGIYAZJI0109-74-31 07:51:00 Test Item Value Reference Range Interpretation Comments Platelet (test code = Platelet) 356 133-450 [facility] CenterRoefbjqBNUOWJEJVX6391-28-99 07:51:00 Test Item Value Reference Range Interpretation Comments RBC (test code = RBC) 4.45 4.20-5.40 [facility] CenterZdxkayiZAVWFIEXXO3967-38-43 07:51:00 Test Item Value Reference Range Interpretation Comments WBC (test code = WBC) 12.9 3.7-10.4 [facility] CenterJtcmuiqZRJLCGNHWG1417-46-55 07:51:00 Test Item Value Reference Range Interpretation Comments Hgb (test code = Hgb) 13.5 12.0-16.0 [facility] CenterAgnxdyeJQQDLDQTNU7707-73-90 07:51:00 Test Item Value Reference Range Interpretation Comments MCV (test code = MCV) 89.7 80.0-98.0 [facility] CenterYfkkcwtXPEIDQVEEY5293-03-81 07:51:00 Test Item Value Reference Range Interpretation Comments Hct (test code = Hct) 39.9 36.0-48.0 [facility] CenterWufhvpyYEZHRADTDX6493-12-94 07:51:00 Test Item Value Reference Range Interpretation Comments Eosinophils # (test code 0.3 See_Comment [A utomated message] The = Eosinophils #) system whic h generated this result tra nsmitted reference range : <=0.5. The reference r ozzy was not used to int erpret this result as normal/abnormal . [facility] CenterDsqiwrsLEMSUSAEZW1251-98-28 07:51:00 Test Item Value Reference Range Interpretation Comments Lymphocytes # (test code = Lymphocytes 3.6 1.0-5.5 #) [facility] CenterCkrnihzUZNYCGLHHA9803-28-96 07:51:00 Test Item Value Reference Range Interpretation Comments Monocytes # (test code 0.7 See_Comment [Aut omated message] The = Monocytes #) system which generated this result tra nsmitted reference range : <=0.8. The reference r ozzy was not used to int erpret this result as normal/abnormal . [facility] CenterWrspvkbIRZLASDZVG9697-70-94 07:51:00 Test Item Value Reference Range Interpretation Comments Segs (test code = Segs) 63.9 45.0-75.0 [facility] CenterIptwekcISONMYEVRX5120-96-00 07:51:00 Test Item Value Reference Range Interpretation Comments Segs-Bands # (test code = Segs-Bands #) 8.2 1.5-8.1 [facility] CenterQzgeagmJWHMATOWCE2169-48-69 07:51:00 Test Item Value Reference Range Interpretation Comments Basophils (test code = 0.7 See_Comment [Aut omated message] The Basophils) system which ge nerated this result tra nsmitted reference range : <=1.0. The reference r ozzy was not used to int erpret this result as normal/abnormal . [facility] CenterJiihjhaXJQGVEBBNG4754-42-80 07:51:00 Test Item Value Reference Range Interpretation Comments Monocytes (test code = Monocytes) 5.4 2.0-12.0 [facility] CenterCkyphrqJSWCPEZGNX6476-42-69 07:51:00 Test Item Value Reference Range Interpretation Comments Eosinophils (test code = 2.3 See_Comment [A utomated message] The Eosinophils) system which ge nerated this result tra nsmitted reference range : <=4.0. The reference r ozzy was not used to int erpret this result as normal/abnormal . [facility] CenterCmkrxtdLPNZDSSSGU8823-24-45 07:51:00 Test Item Value Reference Range Interpretation Comments Lymphocytes (test code = Lymphocytes) 27.7 20.0-40.0 [facility] CenterSnwtxlhSJRDUKPTFU8360-92-73 07:51:00 Test Item Value Reference Range Interpretation Comments Basophils # (test code 0.1 See_Comment [Aut omated message] The = Basophils #) system which generated this result tra nsmitted reference range : <=0.2. The reference r ozzy was not used to int erpret this result as normal/abnormal . [facility] AND [id number] 07:51:00 Test Item Value Reference Range Interpretation Comments UA Urobilinogen (test code = UA 1.0 0.1-1.0 Urobilinogen) [facility] AND [id number] 07:51:00 Test Item Value Reference Range Interpretation Comments UA Turbidity (test code Cloudy *ABN*(09/04/14 = UA Turbidity) 1:51 AM) [facility] AND [id number] 07:51:00 Test Item Value Reference Range Interpretation Comments UA Color (test code = Red *ABN*(09/04/14 1:51 UA Color) AM) [facility] AND [id number] 07:51:00 Test Item Value Reference Range Interpretation Comments UA Ketones (test code Negative *NA*(09/04/14 = UA Ketones) 1:51 AM) [facility] AND [id number] 07:51:00 Test Item Value Reference Range Interpretation Comments UA Glucose (test code Negative (09/04/14 1:51 = UA Glucose) AM) [facility] AND [id number] 07:51:00 Test Item Value Reference Range Interpretation Comments UA Protein (test code = Trace *ABN*(09/04/14 UA Protein) 1:51 AM) [facility] AND [id number] 07:51:00 Test Item Value Reference Range Interpretation Comments UA pH (test code = UA pH) 8.0 1 5.0-8.0 [facility] AND [id number] 07:51:00 Test Item Value Reference Range Interpretation Comments UA Spec Grav (test code = UA Spec 1.015 1 Grav) [facility] AND [id number] 07:51:00 Test Item Value Reference Range Interpretation Comments UA Bili (test code = Negative *NA*(09/04/14 UA Bili) 1:51 AM) [facility] AND [id number] 07:51:00 Test Item Value Reference Range Interpretation Comments UA Blood (test code = Large *ABN*(09/04/14 UA Blood) 1:51 AM) [facility] AND [id number] 07:51:00 Test Item Value Reference Range Interpretation Comments UA Leuk Est (test Negative (09/04/14 1:51 code = UA Leuk Est) AM) [facility] AND [id number] 07:51:00 Test Item Value Reference Range Interpretation Comments UA Nitrite (test code Negative (09/04/14 1:51 = UA Nitrite) AM) [facility] AND [id number] 07:51:00 Test Item Value Reference Range Interpretation Comments UA Amorph Joselin (test code = UA Few /HPF Amorph Joselin) [facility] AND [id number] 07:51:00 Test Item Value Reference Range Interpretation Comments UA RBC (test code 51-100 /HPF See_Comment [Automate d message] The = UA RBC) system which ge nerated this result tra nsmitted reference range : <=2. The reference r ozzy was not used to int erpret this result as normal/abnormal . [facility] AND [id number] 07:51:00 Test Item Value Reference Range Interpretation Comments UA WBC (test code = UA WBC) 6-10 /HPF [facility] AND [id number] 07:51:00 Test Item Value Reference Range Interpretation Comments UA Bacteria (test code = UA Few /HPF Bacteria) [facility] AND [id number] 07:51:00 Test Item Value Reference Range Interpretation Comments UA Sq Epi (test code = UA Sq Occasional /LPF Epi) [facility] [employer] [id number] 07:51:00 Test Item Value Reference Range Interpretation Comments ABO/Rh (test code = ABO/Rh) A POS [facility] [employer] [facility] [id number] 07:51:00 Test Item Value Reference Range Interpretation Comments Antibody Scrn (test Negative (09/04/14 1:51 code = Antibody Scrn) AM) [facility] [employer] [id number] 07:51:00 Test Item Value Reference Range Interpretation Comments Albumin Lvl (test code = Albumin Lvl) 3.4 3.5-5.0 [facility] [place] [id number] 07:51:00 Test Item Value Reference Range Interpretation Comments Alk Phos (test code = Alk Phos) 64 39-136 [facility]2015-01-23 07:51:00 Test Item Value Reference Range Interpretation Comments ALT (test code = ALT) 18 See_Comment [Auto mated message] The system which ge nerated this result transmit gaye reference range : <=65. The reference range was not used to interpr et this result as satish l/abnormal. [facility]2015-01-23 07:51:00 Test Item Value Reference Range Interpretation Comments AST (test code = AST) 12 See_Comment [Auto mated message] The system which ge nerated this result transmit gaye reference range : <=37. The reference range was not used to interpr et this result as satish l/abnormal. [facility]2015-01-23 07:51:00 Test Item Value Reference Range Interpretation Comments eGFR (test code = eGFR) 93 [facility]2015-01-23 07:51:00 Test Item Value Reference Range Interpretation Comments Bili Total (test code = Bili Total) 0.3 0.2-1.3 [facility]2015-01-23 07:51:00 Test Item Value Reference Range Interpretation Comments Chloride Lvl (test code = Chloride Lvl) 108 95-109 [facility]2015-01-23 07:51:00 Test Item Value Reference Range Interpretation Comments Sodium Lvl (test code = Sodium Lvl) 138 135-145 [facility]2015-01-23 07:51:00 Test Item Value Reference Range Interpretation Comments Potassium Lvl (test code = Potassium 3.9 3.5-5.1 Lvl) [facility]2015-01-23 07:51:00 Test Item Value Reference Range Interpretation Comments CO2 (test code = CO2) 22 24-32 [facility]2015-01-23 07:51:00 Test Item Value Reference Range Interpretation Comments Calcium Lvl (test code = Calcium Lvl) 8.8 8.5-10.5 [facility]2015-01-23 07:51:00 Test Item Value Reference Range Interpretation Comments Glucose Lvl (test code = Glucose Lvl) 98 70-99 [facility]2015-01-23 07:51:00 Test Item Value Reference Range Interpretation Comments Total Protein (test code = Total 7.3 6.4-8.4 Protein) [facility]2015-01-23 07:51:00 Test Item Value Reference Range Interpretation Comments BUN (test code = BUN) 12 7- [facility]2015-01-23 07:51:00 Test Item Value Reference Range Interpretation Comments Creatinine Lvl (test code = Creatinine 0.8 0.5-1.4 Lvl) [facility]2015-01-23 07:51:00 Test Item Value Reference Range Interpretation Comments AGAP (test code = AGAP) 11.9 10.0-20.0 [facility]2015-01-23 07:51:00 Test Item Value Reference Range Interpretation Comments B/C Ratio (test code = B/C Ratio) 15 6-25 [facility]2015-01-23 07:51:00 Test Item Value Reference Range Interpretation Comments Globulin (test code = Globulin) 3.9 2.0-4.0 [facility]2015-01-23 07:51:00 Test Item Value Reference Range Interpretation Comments A/G Ratio (test code = A/G Ratio) 0.9 0.7-1.6 [id number] 07:51:00 Test Item Value Reference Range Interpretation Comments hCG Tot (test code = hCG Tot) no gt [facility]GwxyunrAEIOXSJALN3894-84-64 07:51:00 Test Item Value Reference Range Interpretation Comments MCHC (test code = MCHC) 33.8 32.0-36.0 [facility] CenterQppbhbsPRLMXHOQYH5203-08-64 07:51:00 Test Item Value Reference Range Interpretation Comments MCH (test code = MCH) 30.3 pg 27.0-31.0 [facility] C[id number] 07:51:00 Test Item Value Reference Range Interpretation Comments RDW (test code = RDW) 13.0 11.5-14.5 [facility] CenterHdebdddHVQBDPOGDC5877-27-90 07:51:00 Test Item Value Reference Range Interpretation Comments MPV (test code = MPV) 8.4 7.4-10.4 [facility] CenterFdqbqjvMJHRZFSXYH5085-54-75 07:51:00 Test Item Value Reference Range Interpretation Comments Platelet (test code = Platelet) 356 133-450 [facility] CenterHlmsjdmILCQWLXJKP3810-53-44 07:51:00 Test Item Value Reference Range Interpretation Comments RBC (test code = RBC) 4.45 4.20-5.40 [facility] CenterFfwedxxWSRUWZXAWJ7143-52-26 07:51:00 Test Item Value Reference Range Interpretation Comments WBC (test code = WBC) 12.9 3.7-10.4 [facility] CenterSqabescKHSWQAZYJD8780-78-53 07:51:00 Test Item Value Reference Range Interpretation Comments Hgb (test code = Hgb) 13.5 12.0-16.0 [facility] CenterDdzajfhDTYPLHEMAA3349-10-33 07:51:00 Test Item Value Reference Range Interpretation Comments MCV (test code = MCV) 89.7 80.0-98.0 [facility] CenterUwzpzxaNWGSMWDIVV9657-59-13 07:51:00 Test Item Value Reference Range Interpretation Comments Hct (test code = Hct) 39.9 36.0-48.0 [facility] CenterZjmqqvxLFJJFUYZVC4354-92-76 07:51:00 Test Item Value Reference Range Interpretation Comments Eosinophils # (test code 0.3 See_Comment [A utomated message] The = Eosinophils #) system ic h generated this result tra nsmitted reference range : <=0.5. The reference r ozzy was not used to int erpret this result as normal/abnormal . [facility] CenterChfjfozYOVZNKTQVX1070-76-63 07:51:00 Test Item Value Reference Range Interpretation Comments Lymphocytes # (test code = Lymphocytes 3.6 1.0-5.5 #) [facility] CenterZhlqgncGITBBHFGLF3533-02-77 07:51:00 Test Item Value Reference Range Interpretation Comments Monocytes # (test code 0.7 See_Comment [Aut omated message] The = Monocytes #) system which generated this result tra nsmitted reference range : <=0.8. The reference r ozzy was not used to int erpret this result as normal/abnormal . [facility] CenterYsfazahIQJNKNLZPR9211-83-47 07:51:00 Test Item Value Reference Range Interpretation Comments Segs (test code = Segs) 63.9 45.0-75.0 [facility] CenterWpgtndfELNYHNRWKQ0588-71-24 07:51:00 Test Item Value Reference Range Interpretation Comments Segs-Bands # (test code = Segs-Bands #) 8.2 1.5-8.1 [place] [id number] 07:51:00 Test Item Value Reference Range Interpretation Comments Basophils (test code = 0.7 See_Comment [Aut omated message] The Basophils) system which ge nerated this result tra nsmitted reference range : <=1.0. The reference r ozzy was not used to int erpret this result as normal/abnormal . [facility] CenterBodczwnPBIGBLMHQO2170-96-50 07:51:00 Test Item Value Reference Range Interpretation Comments Monocytes (test code = Monocytes) 5.4 2.0-12.0 [facility] CenterRiothzsRRAXLBMAYC4567-47-38 07:51:00 Test Item Value Reference Range Interpretation Comments Eosinophils (test code = 2.3 See_Comment [A utomated message] The Eosinophils) system which ge nerated this result tra nsmitted reference range : <=4.0. The reference r ozzy was not used to int erpret this result as normal/abnormal . [facility] CenterVrdvfsgSMJBQAYSOO8686-60-76 07:51:00 Test Item Value Reference Range Interpretation Comments Lymphocytes (test code = Lymphocytes) 27.7 20.0-40.0 [facility] CenterEonjpjvUBJXFPDHWL0051-25-70 07:51:00 Test Item Value Reference Range Interpretation Comments Basophils # (test code 0.1 See_Comment [Aut omated message] The = Basophils #) system which generated this result tra nsmitted reference range : <=0.2. The reference r ozzy was not used to int erpret this result as normal/abnormal . [facility]2015-01-23 07:51:00 Test Item Value Reference Range Interpretation Comments UA Urobilinogen (test code = UA 1.0 0.1-1.0 Urobilinogen) [facility] AND [id number] 07:51:00 Test Item Value Reference Range Interpretation Comments UA Turbidity (test code Cloudy *ABN*(09/04/14 = UA Turbidity) 1:51 AM) [facility]2015-01-23 07:51:00 Test Item Value Reference Range Interpretation Comments UA Color (test code = Red *ABN*(09/04/14 1:51 UA Color) AM) [facility]2015-01-23 07:51:00 Test Item Value Reference Range Interpretation Comments UA Ketones (test code Negative *NA*(09/04/14 = UA Ketones) 1:51 AM) [facility] AND [id number] 07:51:00 Test Item Value Reference Range Interpretation Comments UA Glucose (test code Negative (09/04/14 1:51 = UA Glucose) AM) [facility] AND [id number] 07:51:00 Test Item Value Reference Range Interpretation Comments UA Protein (test code = Trace *ABN*(09/04/14 UA Protein) 1:51 AM) [facility] AND [id number] 07:51:00 Test Item Value Reference Range Interpretation Comments UA pH (test code = UA pH) 8.0 1 5.0-8.0 [facility] AND [id number] 07:51:00 Test Item Value Reference Range Interpretation Comments UA Spec Grav (test code = UA Spec 1.015 1 Grav) [facility] AND [id number] 07:51:00 Test Item Value Reference Range Interpretation Comments UA Bili (test code = Negative *NA*(09/04/14 UA Bili) 1:51 AM) [facility] AND [id number] 07:51:00 Test Item Value Reference Range Interpretation Comments UA Blood (test code = Large *ABN*(09/04/14 UA Blood) 1:51 AM) [facility] AND [id number] 07:51:00 Test Item Value Reference Range Interpretation Comments UA Leuk Est (test Negative (09/04/14 1:51 code = UA Leuk Est) AM) [facility] AND [id number] 07:51:00 Test Item Value Reference Range Interpretation Comments UA Nitrite (test code Negative (09/04/14 1:51 = UA Nitrite) AM) [facility] AND [id number] 07:51:00 Test Item Value Reference Range Interpretation Comments UA Amorph Joselin (test code = UA Few /HPF Amorph Joselin) [facility] AND [id number] 07:51:00 Test Item Value Reference Range Interpretation Comments UA RBC (test code 51-100 /HPF See_Comment [Automate d message] The = UA RBC) system which ge nerated this result tra nsmitted reference range : <=2. The reference r ozzy was not used to int erpret this result as normal/abnormal . [facility] AND [id number] 07:51:00 Test Item Value Reference Range Interpretation Comments UA WBC (test code = UA WBC) 6-10 /HPF [facility] AND [id number] 07:51:00 Test Item Value Reference Range Interpretation Comments UA Bacteria (test code = UA Few /HPF Bacteria) [facility] AND [id number] 07:51:00 Test Item Value Reference Range Interpretation Comments UA Sq Epi (test code = UA Sq Occasional /LPF Epi) [facility] [employer] [id number] 07:51:00 Test Item Value Reference Range Interpretation Comments ABO/Rh (test code = ABO/Rh) A POS [facility] [employer] [facility] [id number] 07:51:00 Test Item Value Reference Range Interpretation Comments Antibody Scrn (test Negative (09/04/14 1:51 code = Antibody Scrn) AM) [facility] [employer] [id number] 07:51:00 Test Item Value Reference Range Interpretation Comments Albumin Lvl (test code = Albumin Lvl) 3.4 3.5-5.0 [facility] [place] [id number] 07:51:00 Test Item Value Reference Range Interpretation Comments Alk Phos (test code = Alk Phos) 64 39-136 [facility] [place] [id number] 07:51:00 Test Item Value Reference Range Interpretation Comments ALT (test code = ALT) 18 See_Comment [Auto mated message] The system which ge nerated this result transmit gaye reference range : <=65. The reference range was not used to interpr et this result as satish l/abnormal. [facility] [place] [id number] 07:51:00 Test Item Value Reference Range Interpretation Comments AST (test code = AST) 12 See_Comment [Auto mated message] The system which ge nerated this result transmit gaye reference range : <=37. The reference range was not used to interpr et this result as satish l/abnormal. [facility] [place] [id number] 07:51:00 Test Item Value Reference Range Interpretation Comments eGFR (test code = eGFR) 93 [facility] [place] [id number] 07:51:00 Test Item Value Reference Range Interpretation Comments Bili Total (test code = Bili Total) 0.3 0.2-1.3 [facility]2015-01-23 07:51:00 Test Item Value Reference Range Interpretation Comments Chloride Lvl (test code = Chloride Lvl) 108 95-109 [facility]2015-01-23 07:51:00 Test Item Value Reference Range Interpretation Comments Sodium Lvl (test code = Sodium Lvl) 138 135-145 [facility]2015-01-23 07:51:00 Test Item Value Reference Range Interpretation Comments Potassium Lvl (test code = Potassium 3.9 3.5-5.1 Lvl) [facility]2015-01-23 07:51:00 Test Item Value Reference Range Interpretation Comments CO2 (test code = CO2) 22 24-32 [facility]2015-01-23 07:51:00 Test Item Value Reference Range Interpretation Comments Calcium Lvl (test code = Calcium Lvl) 8.8 8.5-10.5 [facility]2015-01-23 07:51:00 Test Item Value Reference Range Interpretation Comments Glucose Lvl (test code = Glucose Lvl) 98 70-99 [facility]2015-01-23 07:51:00 Test Item Value Reference Range Interpretation Comments Total Protein (test code = Total 7.3 6.4-8.4 Protein) [facility]2015-01-23 07:51:00 Test Item Value Reference Range Interpretation Comments BUN (test code = BUN) 12 - [facility]2015-01-23 07:51:00 Test Item Value Reference Range Interpretation Comments Creatinine Lvl (test code = Creatinine 0.8 0.5-1.4 Lvl) [facility]2015-01-23 07:51:00 Test Item Value Reference Range Interpretation Comments AGAP (test code = AGAP) 11.9 10.0-20.0 [facility]2015-01-23 07:51:00 Test Item Value Reference Range Interpretation Comments B/C Ratio (test code = B/C Ratio) 15 6-25 [facility]2015-01-23 07:51:00 Test Item Value Reference Range Interpretation Comments Globulin (test code = Globulin) 3.9 2.0-4.0 [facility]2015-01-23 07:51:00 Test Item Value Reference Range Interpretation Comments A/G Ratio (test code = A/G Ratio) 0.9 0.7-[address] [facility] [facility]AFHUKTYHNTZLZ2890-12-33 07:51:00 Test Item Value Reference Range Interpretation Comments hCG Tot (test code = hCG Tot) no gt [facility] CenterGlibqtiKRXTKDEPNQ8102-84-46 07:51:00 Test Item Value Reference Range Interpretation Comments MCHC (test code = MCHC) 33.8 32.0-36.0 [facility] CenterPbrveuuJATMPEXPSD7626-90-99 07:51:00 Test Item Value Reference Range Interpretation Comments MCH (test code = MCH) 30.3 pg 27.0-31.0 [facility] CenterMtwtgleVYTURBVRFK2966-48-85 07:51:00 Test Item Value Reference Range Interpretation Comments RDW (test code = RDW) 13.0 11.5-14.5 [facility] CenterIjwgndbMGYVZXBSYJ7782-69-24 07:51:00 Test Item Value Reference Range Interpretation Comments MPV (test code = MPV) 8.4 7.4-10.4 [facility] CenterUbloyggOAHQSJHTJR2182-03-80 07:51:00 Test Item Value Reference Range Interpretation Comments Platelet (test code = Platelet) 356 133-450 [facility] CenterSznfobdBBFDYDICOL7015-67-68 07:51:00 Test Item Value Reference Range Interpretation Comments RBC (test code = RBC) 4.45 4.20-5.40 [facility] CenterZopuwgnSKICJEULLU2979-15-91 07:51:00 Test Item Value Reference Range Interpretation Comments WBC (test code = WBC) 12.9 3.7-10.4 [facility] CenterUbqczbeZIZRQDFGUB3512-91-95 07:51:00 Test Item Value Reference Range Interpretation Comments Hgb (test code = Hgb) 13.5 12.0-16.0 [facility] CenterRwhxxajREJBOPZKKY2966-77-06 07:51:00 Test Item Value Reference Range Interpretation Comments MCV (test code = MCV) 89.7 80.0-98.0 [facility] CenterQveicrsIQZGHEXWKF5647-50-59 07:51:00 Test Item Value Reference Range Interpretation Comments Hct (test code = Hct) 39.9 36.0-48.0 [facility] CenterWbbyyvaWWKRFETOZS0232-96-15 07:51:00 Test Item Value Reference Range Interpretation Comments Eosinophils # (test code 0.3 See_Comment [A utomated message] The = Eosinophils #) system whic h generated this result tra nsmitted reference range : <=0.5. The reference r ozzy was not used to int erpret this result as normal/abnormal . [facility] CenterTsyzvzkWQORQGQAYU2768-18-05 07:51:00 Test Item Value Reference Range Interpretation Comments Lymphocytes # (test code = Lymphocytes 3.6 1.0-5.5 #) [facility] CenterLwihxalZACVZVVDDR3697-31-29 07:51:00 Test Item Value Reference Range Interpretation Comments Monocytes # (test code 0.7 See_Comment [Aut omated message] The = Monocytes #) system which generated this result tra nsmitted reference range : <=0.8. The reference r ozzy was not used to int erpret this result as normal/abnormal . [id number] 07:51:00 Test Item Value Reference Range Interpretation Comments Segs (test code = Segs) 63.9 45.0-75.0 [id number] 07:51:00 Test Item Value Reference Range Interpretation Comments Segs-Bands # (test code = Segs-Bands #) 8.2 1.5-8.1 [facility] [id number] 07:51:00 Test Item Value Reference Range Interpretation Comments Basophils (test code = 0.7 See_Comment [Aut omated message] The Basophils) system which ge nerated this result tra nsmitted reference range : <=1.0. The reference r ozzy was not used to int erpret this result as normal/abnormal . [facility] Cent[id number] 07:51:00 Test Item Value Reference Range Interpretation Comments Monocytes (test code = Monocytes) 5.4 2.0-12.0 [facility] Cent[id number] 07:51:00 Test Item Value Reference Range Interpretation Comments Eosinophils (test code = 2.3 See_Comment [A utomated message] The Eosinophils) system which ge nerated this result tra nsmitted reference range : <=4.0. The reference r ozzy was not used to int erpret this result as normal/abnormal . [facility] CenterPfuqlroPDTQCVFVJB1563-88-08 07:51:00 Test Item Value Reference Range Interpretation Comments Lymphocytes (test code = Lymphocytes) 27.7 20.0-40.0 [facility] H[id number] 07:51:00 Test Item Value Reference Range Interpretation Comments Basophils # (test code 0.1 See_Comment [Aut omated message] The = Basophils #) system which generated this result tra nsmitted reference range : <=0.2. The reference r ozzy was not used to int erpret this result as normal/abnormal . [facility] AND [id number] 07:51:00 Test Item Value Reference Range Interpretation Comments UA Urobilinogen (test code = UA 1.0 0.1-1.0 Urobilinogen) [facility] AND [id number] 07:51:00 Test Item Value Reference Range Interpretation Comments UA Turbidity (test code Cloudy *ABN*(09/04/14 = UA Turbidity) 1:51 AM) [facility] AND [id number] 07:51:00 Test Item Value Reference Range Interpretation Comments UA Color (test code = Red *ABN*(09/04/14 1:51 UA Color) AM) [facility] AND [id number] 07:51:00 Test Item Value Reference Range Interpretation Comments UA Ketones (test code Negative *NA*(09/04/14 = UA Ketones) 1:51 AM) [facility] AND [id number] 07:51:00 Test Item Value Reference Range Interpretation Comments UA Glucose (test code Negative (09/04/14 1:51 = UA Glucose) AM) [facility] AND [id number] 07:51:00 Test Item Value Reference Range Interpretation Comments UA Protein (test code = Trace *ABN*(09/04/14 UA Protein) 1:51 AM) [facility] AND [id number] 07:51:00 Test Item Value Reference Range Interpretation Comments UA pH (test code = UA pH) 8.0 1 5.0-8.0 [facility] AND [id number] 07:51:00 Test Item Value Reference Range Interpretation Comments UA Spec Grav (test code = UA Spec 1.015 1 Grav) [facility] AND [id number] 07:51:00 Test Item Value Reference Range Interpretation Comments UA Bili (test code = Negative *NA*(09/04/14 UA Bili) 1:51 AM) [facility] AND [id number] 07:51:00 Test Item Value Reference Range Interpretation Comments UA Blood (test code = Large *ABN*(09/04/14 UA Blood) 1:51 AM) [facility] AND [id number] 07:51:00 Test Item Value Reference Range Interpretation Comments UA Leuk Est (test Negative (09/04/14 1:51 code = UA Leuk Est) AM) [facility] AND [id number] 07:51:00 Test Item Value Reference Range Interpretation Comments UA Nitrite (test code Negative (09/04/14 1:51 = UA Nitrite) AM) [facility] AND [id number] 07:51:00 Test Item Value Reference Range Interpretation Comments UA Amorph Joselin (test code = UA Few /HPF Amorph Joselin) [facility] AND [id number] 07:51:00 Test Item Value Reference Range Interpretation Comments UA RBC (test code 51-100 /HPF See_Comment [Automate d message] The = UA RBC) system which ge nerated this result tra nsmitted reference range : <=2. The reference r ozzy was not used to int erpret this result as normal/abnormal . [facility] AND [id number] 07:51:00 Test Item Value Reference Range Interpretation Comments UA WBC (test code = UA WBC) 6-10 /HPF [facility] AND [id number] 07:51:00 Test Item Value Reference Range Interpretation Comments UA Bacteria (test code = UA Few /HPF Bacteria) [facility] AND [id number] 07:51:00 Test Item Value Reference Range Interpretation Comments UA Sq Epi (test code = UA Sq Occasional /LPF Epi) [facility] [employer] [id number] 07:51:00 Test Item Value Reference Range Interpretation Comments ABO/Rh (test code = ABO/Rh) A POS [facility] [employer] [id number] 07:51:00 Test Item Value Reference Range Interpretation Comments Antibody Scrn (test Negative (09/04/14 1:51 code = Antibody Scrn) AM) [facility] [id number] 07:51:00 Test Item Value Reference Range Interpretation Comments Albumin Lvl (test code = Albumin Lvl) 3.4 3.5-5.0 [facility]2015-01-23 07:51:00 Test Item Value Reference Range Interpretation Comments Alk Phos (test code = Alk Phos) 64 39-136 [facility]2015-01-23 07:51:00 Test Item Value Reference Range Interpretation Comments ALT (test code = ALT) 18 See_Comment [Auto mated message] The system which ge nerated this result transmit gaye reference range : <=65. The reference range was not used to interpr et this result as satish l/abnormal. [facility]2015-01-23 07:51:00 Test Item Value Reference Range Interpretation Comments AST (test code = AST) 12 See_Comment [Auto mated message] The system which ge nerated this result transmit gaye reference range : <=37. The reference range was not used to interpr et this result as satish l/abnormal. [facility]2015-01-23 07:51:00 Test Item Value Reference Range Interpretation Comments eGFR (test code = eGFR) 93 [facility]2015-01-23 07:51:00 Test Item Value Reference Range Interpretation Comments Bili Total (test code = Bili Total) 0.3 0.2-1.3 [facility]2015-01-23 07:51:00 Test Item Value Reference Range Interpretation Comments Chloride Lvl (test code = Chloride Lvl) 108 95-109 [facility]2015-01-23 07:51:00 Test Item Value Reference Range Interpretation Comments Sodium Lvl (test code = Sodium Lvl) 138 135-145 [facility]2015-01-23 07:51:00 Test Item Value Reference Range Interpretation Comments Potassium Lvl (test code = Potassium 3.9 3.5-5.1 Lvl) [facility]2015-01-23 07:51:00 Test Item Value Reference Range Interpretation Comments CO2 (test code = CO2) 22 24-32 [facility]2015-01-23 07:51:00 Test Item Value Reference Range Interpretation Comments Calcium Lvl (test code = Calcium Lvl) 8.8 8.5-10.5 [facility]2015-01-23 07:51:00 Test Item Value Reference Range Interpretation Comments Glucose Lvl (test code = Glucose Lvl) 98 70-99 [facility]2015-01-23 07:51:00 Test Item Value Reference Range Interpretation Comments Total Protein (test code = Total 7.3 6.4-8.4 Protein) [facility]2015-01-23 07:51:00 Test Item Value Reference Range Interpretation Comments BUN (test code = BUN) 12 7-22 [facility]2015-01-23 07:51:00 Test Item Value Reference Range Interpretation Comments Creatinine Lvl (test code = Creatinine 0.8 0.5-1.4 Lvl) [facility]2015-01-23 07:51:00 Test Item Value Reference Range Interpretation Comments AGAP (test code = AGAP) 11.9 10.0-20.0 [facility]2015-01-23 07:51:00 Test Item Value Reference Range Interpretation Comments B/C Ratio (test code = B/C Ratio) 15 6-25 [facility]2015-01-23 07:51:00 Test Item Value Reference Range Interpretation Comments Globulin (test code = Globulin) 3.9 2.0-4.0 [facility]2015-01-23 07:51:00 Test Item Value Reference Range Interpretation Comments A/G Ratio (test code = A/G Ratio) 0.9 0.7-1.[id number] 07:51:00 Test Item Value Reference Range Interpretation Comments hCG Tot (test code = hCG Tot) no gt [facility]CkatcqeAQFZWOZKLX7330-73-33 07:51:00 Test Item Value Reference Range Interpretation Comments MCHC (test code = MCHC) 33.8 32.0-36.0 [facility] C[id number] 07:51:00 Test Item Value Reference Range Interpretation Comments MCH (test code = MCH) 30.3 pg 27.0-31.0 [facility] CenterQerfzodPTEZYHSEJW2354-28-71 07:51:00 Test Item Value Reference Range Interpretation Comments RDW (test code = RDW) 13.0 11.5-14.5 [facility] CenterEgewisqJLHHGSIXVJ8569-51-77 07:51:00 Test Item Value Reference Range Interpretation Comments MPV (test code = MPV) 8.4 7.4-10.4 [facility] C[id number] 07:51:00 Test Item Value Reference Range Interpretation Comments Platelet (test code = Platelet) 356 133-450 [facility] CenterNpdeqdxLTCXKTIFVN0230-35-40 07:51:00 Test Item Value Reference Range Interpretation Comments RBC (test code = RBC) 4.45 4.20-5.40 [facility] C[id number] 07:51:00 Test Item Value Reference Range Interpretation Comments WBC (test code = WBC) 12.9 3.7-10.4 [facility] CenterYryruqhEFZHCCLMMF9707-61-64 07:51:00 Test Item Value Reference Range Interpretation Comments Hgb (test code = Hgb) 13.5 12.0-16.0 [facility] CenterHsxjnpaLNMEGJIHTQ0322-37-04 07:51:00 Test Item Value Reference Range Interpretation Comments MCV (test code = MCV) 89.7 80.0-98.0 [facility] CenterGjrwqmyQWVZUVBIIH2541-87-77 07:51:00 Test Item Value Reference Range Interpretation Comments Hct (test code = Hct) 39.9 36.0-48.0 [facility] CenterBmpopibJKRETSAQTX8246-26-13 07:51:00 Test Item Value Reference Range Interpretation Comments Eosinophils # (test code 0.3 See_Comment [A utomated message] The = Eosinophils #) system whic h generated this result tra nsmitted reference range : <=0.5. The reference r ozzy was not used to int erpret this result as normal/abnormal . [facility] CenterLmsgekxMCHIXCWNZM0227-50-60 07:51:00 Test Item Value Reference Range Interpretation Comments Lymphocytes # (test code = Lymphocytes 3.6 1.0-5.5 #) [facility] CenterFpmkubcQYRMWOXIIN7306-13-01 07:51:00 Test Item Value Reference Range Interpretation Comments Monocytes # (test code 0.7 See_Comment [Aut omated message] The = Monocytes #) system which generated this result tra nsmitted reference range : <=0.8. The reference r ozzy was not used to int erpret this result as normal/abnormal . [facility] CenterHffnlfpEWSCBKSVUA0151-09-82 07:51:00 Test Item Value Reference Range Interpretation Comments Segs (test code = Segs) 63.9 45.0-75.0 [facility] CenterCumrifcRRTHDMRCBQ9016-00-13 07:51:00 Test Item Value Reference Range Interpretation Comments Segs-Bands # (test code = Segs-Bands #) 8.2 1.5-8.1 [facility] CenterUbuwhzqUTZCEQDNWI7688-73-96 07:51:00 Test Item Value Reference Range Interpretation Comments Basophils (test code = 0.7 See_Comment [Aut omated message] The Basophils) system which ge nerated this result tra nsmitted reference range : <=1.0. The reference r ozzy was not used to int erpret this result as normal/abnormal . [facility] CenterPcsyucgFSJLZKCHXC8488-49-79 07:51:00 Test Item Value Reference Range Interpretation Comments Monocytes (test code = Monocytes) 5.4 2.0-12.0 [facility] CenterVrbfuqpKEDXKIGJGH4592-95-97 07:51:00 Test Item Value Reference Range Interpretation Comments Eosinophils (test code = 2.3 See_Comment [A utomated message] The Eosinophils) system which ge nerated this result tra nsmitted reference range : <=4.0. The reference r ozzy was not used to int erpret this result as normal/abnormal . [facility] CenterUvekkvrPCFFWJJMOO5543-48-92 07:51:00 Test Item Value Reference Range Interpretation Comments Lymphocytes (test code = Lymphocytes) 27.7 20.0-40.0 [facility] CenterEnspsgnTWPBGQLXYG9904-89-97 07:51:00 Test Item Value Reference Range Interpretation Comments Basophils # (test code 0.1 See_Comment [Aut omated message] The = Basophils #) system which generated this result tra nsmitted reference range : <=0.2. The reference r ozzy was not used to int erpret this result as normal/abnormal . [facility]2015-01-23 07:51:00 Test Item Value Reference Range Interpretation Comments UA Urobilinogen (test code = UA 1.0 0.1-1.0 Urobilinogen) [facility] AND [id number] 07:51:00 Test Item Value Reference Range Interpretation Comments UA Turbidity (test code Cloudy *ABN*(09/04/14 = UA Turbidity) 1:51 AM) [facility] AND [id number] 07:51:00 Test Item Value Reference Range Interpretation Comments UA Color (test code = Red *ABN*(09/04/14 1:51 UA Color) AM) [facility] AND [id number] 07:51:00 Test Item Value Reference Range Interpretation Comments UA Ketones (test code Negative *NA*(09/04/14 = UA Ketones) 1:51 AM) [facility] AND [id number] 07:51:00 Test Item Value Reference Range Interpretation Comments UA Glucose (test code Negative (09/04/14 1:51 = UA Glucose) AM) [facility] AND [id number] 07:51:00 Test Item Value Reference Range Interpretation Comments UA Protein (test code = Trace *ABN*(09/04/14 UA Protein) 1:51 AM) [facility] AND [id number] 07:51:00 Test Item Value Reference Range Interpretation Comments UA pH (test code = UA pH) 8.0 1 5.0-8.0 [facility] AND [id number] 07:51:00 Test Item Value Reference Range Interpretation Comments UA Spec Grav (test code = UA Spec 1.015 1 Grav) [facility] AND [id number] 07:51:00 Test Item Value Reference Range Interpretation Comments UA Bili (test code = Negative *NA*(09/04/14 UA Bili) 1:51 AM) [facility] AND [id number] 07:51:00 Test Item Value Reference Range Interpretation Comments UA Blood (test code = Large *ABN*(09/04/14 UA Blood) 1:51 AM) [facility] AND [id number] 07:51:00 Test Item Value Reference Range Interpretation Comments UA Leuk Est (test Negative (09/04/14 1:51 code = UA Leuk Est) AM) [facility] AND [id number] 07:51:00 Test Item Value Reference Range Interpretation Comments UA Nitrite (test code Negative (09/04/14 1:51 = UA Nitrite) AM) [facility] AND [id number] 07:51:00 Test Item Value Reference Range Interpretation Comments UA Amorph Joselin (test code = UA Few /HPF Amorph Joselin) [facility] AND [id number] 07:51:00 Test Item Value Reference Range Interpretation Comments UA RBC (test code 51-100 /HPF See_Comment [Automate d message] The = UA RBC) system which ge nerated this result tra nsmitted reference range : <=2. The reference r ozzy was not used to int erpret this result as normal/abnormal . [facility] AND [id number] 07:51:00 Test Item Value Reference Range Interpretation Comments UA WBC (test code = UA WBC) 6-10 /HPF [facility] AND [id number] 07:51:00 Test Item Value Reference Range Interpretation Comments UA Bacteria (test code = UA Few /HPF Bacteria) [facility] AND [id number] 07:51:00 Test Item Value Reference Range Interpretation Comments UA Sq Epi (test code = UA Sq Occasional /LPF Epi) [facility] [employer] [id number] 07:51:00 Test Item Value Reference Range Interpretation Comments ABO/Rh (test code = ABO/Rh) A POS [facility] [employer] [id number] 07:51:00 Test Item Value Reference Range Interpretation Comments Antibody Scrn (test Negative (09/04/14 1:51 code = Antibody Scrn) AM) [facility] [employer] [id number] 07:51:00 Test Item Value Reference Range Interpretation Comments Albumin Lvl (test code = Albumin Lvl) 3.4 3.5-5.0 [facility] [employer] [id number] 07:51:00 Test Item Value Reference Range Interpretation Comments Alk Phos (test code = Alk Phos) 64 39-136 [facility] [place] [id number] 07:51:00 Test Item Value Reference Range Interpretation Comments ALT (test code = ALT) 18 See_Comment [Auto mated message] The system which ge nerated this result transmit gaye reference range : <=65. The reference range was not used to interpr et this result as satish l/abnormal. [facility] [place] [id number] 07:51:00 Test Item Value Reference Range Interpretation Comments AST (test code = AST) 12 See_Comment [Auto mated message] The system which ge nerated this result transmit gaye reference range : <=37. The reference range was not used to interpr et this result as satish l/abnormal. [facility] [id number] 07:51:00 Test Item Value Reference Range Interpretation Comments eGFR (test code = eGFR) 93 [facility]2015-01-23 07:51:00 Test Item Value Reference Range Interpretation Comments Bili Total (test code = Bili Total) 0.3 0.2-1.3 [facility]2015-01-23 07:51:00 Test Item Value Reference Range Interpretation Comments Chloride Lvl (test code = Chloride Lvl) 108 95-109 [facility]2015-01-23 07:51:00 Test Item Value Reference Range Interpretation Comments Sodium Lvl (test code = Sodium Lvl) 138 135-145 [facility]2015-01-23 07:51:00 Test Item Value Reference Range Interpretation Comments Potassium Lvl (test code = Potassium 3.9 3.5-5.1 Lvl) [facility]2015-01-23 07:51:00 Test Item Value Reference Range Interpretation Comments CO2 (test code = CO2) 22 24-32 [facility]2015-01-23 07:51:00 Test Item Value Reference Range Interpretation Comments Calcium Lvl (test code = Calcium Lvl) 8.8 8.5-10.5 [facility]2015-01-23 07:51:00 Test Item Value Reference Range Interpretation Comments Glucose Lvl (test code = Glucose Lvl) 98 70-99 [facility]2015-01-23 07:51:00 Test Item Value Reference Range Interpretation Comments Total Protein (test code = Total 7.3 6.4-8.4 Protein) [facility]2015-01-23 07:51:00 Test Item Value Reference Range Interpretation Comments BUN (test code = BUN) 12 - [facility]2015-01-23 07:51:00 Test Item Value Reference Range Interpretation Comments Creatinine Lvl (test code = Creatinine 0.8 0.5-1.4 Lvl) [facility]2015-01-23 07:51:00 Test Item Value Reference Range Interpretation Comments AGAP (test code = AGAP) 11.9 10.0-20.0 [facility]2015-01-23 07:51:00 Test Item Value Reference Range Interpretation Comments B/C Ratio (test code = B/C Ratio) 15 6-25 [facility] [id number] 07:51:00 Test Item Value Reference Range Interpretation Comments Globulin (test code = Globulin) 3.9 2.0-4.0 [facility] [id number] 07:51:00 Test Item Value Reference Range Interpretation Comments A/G Ratio (test code = A/G Ratio) 0.9 0.7-1.6 [facility]HA[facility]ZDRAUXDK5261-[facility] 07:51:00 Test Item Value Reference Range Interpretation Comments hCG Tot (test code = hCG Tot) no gt [facility]XoqsiyuAANHFGXCBF6093-24-56 07:51:00 Test Item Value Reference Range Interpretation Comments MCHC (test code = MCHC) 33.8 32.0-36.0 [facility] C[id number] 07:51:00 Test Item Value Reference Range Interpretation Comments MCH (test code = MCH) 30.3 pg 27.0-31.0 [facility] CenterIkbfbreLRYWGAKKGG7947-11-43 07:51:00 Test Item Value Reference Range Interpretation Comments RDW (test code = RDW) 13.0 11.5-14.5 [facility] CenterUdculmlMTMOFVFUXO8472-70-53 07:51:00 Test Item Value Reference Range Interpretation Comments MPV (test code = MPV) 8.4 7.4-10.4 [facility] CenterCpaplbsYAMZODAALH0622-58-99 07:51:00 Test Item Value Reference Range Interpretation Comments Platelet (test code = Platelet) 356 133-450 [facility] CenterStjkgeqTBFLDMJYZJ2268-15-83 07:51:00 Test Item Value Reference Range Interpretation Comments RBC (test code = RBC) 4.45 4.20-5.40 [facility] CenterFtsnotoNGXCDRHVBN3143-32-70 07:51:00 Test Item Value Reference Range Interpretation Comments WBC (test code = WBC) 12.9 3.7-10.4 [facility] CenterHycedgpSGWGUFMZHV0641-54-30 07:51:00 Test Item Value Reference Range Interpretation Comments Hgb (test code = Hgb) 13.5 12.0-16.0 [facility] CenterIwbgxjuEKOPLCNQHX3139-86-11 07:51:00 Test Item Value Reference Range Interpretation Comments MCV (test code = MCV) 89.7 80.0-98.0 [facility] CenterFzcbwoxFDKVFPUXDR9551-79-18 07:51:00 Test Item Value Reference Range Interpretation Comments Hct (test code = Hct) 39.9 36.0-48.0 [facility] CenterThsmqeiMWGOUXNRSE8523-61-24 07:51:00 Test Item Value Reference Range Interpretation Comments Eosinophils # (test code 0.3 See_Comment [A utomated message] The = Eosinophils #) system whic h generated this result tra nsmitted reference range : <=0.5. The reference r ozzy was not used to int erpret this result as normal/abnormal . [facility] CenterUldclepYWWYCOURBM1327-50-35 07:51:00 Test Item Value Reference Range Interpretation Comments Lymphocytes # (test code = Lymphocytes 3.6 1.0-5.5 #) [facility] CenterFtsqfnmACBFCOTXRM5692-64-48 07:51:00 Test Item Value Reference Range Interpretation Comments Monocytes # (test code 0.7 See_Comment [Aut omated message] The = Monocytes #) system which generated this result tra nsmitted reference range : <=0.8. The reference r ozzy was not used to int erpret this result as normal/abnormal . [facility] CenterQxjxqclYZDNGRZXTS6085-98-54 07:51:00 Test Item Value Reference Range Interpretation Comments Segs (test code = Segs) 63.9 45.0-75.0 [facility] CenterBydofvoZOVXFTVBMC7371-56-24 07:51:00 Test Item Value Reference Range Interpretation Comments Segs-Bands # (test code = Segs-Bands #) 8.2 1.5-8.1 [facility] CenterWvrnljyEMZXZPPKJY5547-66-57 07:51:00 Test Item Value Reference Range Interpretation Comments Basophils (test code = 0.7 See_Comment [Aut omated message] The Basophils) system which ge nerated this result tra nsmitted reference range : <=1.0. The reference r ozzy was not used to int erpret this result as normal/abnormal . [facility] CenterJtemorhCMZSCPZUZN1630-14-75 07:51:00 Test Item Value Reference Range Interpretation Comments Monocytes (test code = Monocytes) 5.4 2.0-12.0 [facility] CenterAkegxegSSBMTLXHBU5567-05-11 07:51:00 Test Item Value Reference Range Interpretation Comments Eosinophils (test code = 2.3 See_Comment [A utomated message] The Eosinophils) system which ge nerated this result tra nsmitted reference range : <=4.0. The reference r ozzy was not used to int erpret this result as normal/abnormal . [facility] CenterOqhenebYCYYDAWEWL4761-91-58 07:51:00 Test Item Value Reference Range Interpretation Comments Lymphocytes (test code = Lymphocytes) 27.7 20.0-40.0 [id number] [facility]:00 Test Item Value Reference Range Interpretation Comments Basophils # (test code 0.1 See_Comment [Aut omated message] The = Basophils #) system which generated this result tra nsmitted reference range : <=0.2. The reference r ozzy was not used to int erpret this result as normal/abnormal . [facility] AND [id number] 07:51:00 Test Item Value Reference Range Interpretation Comments UA Urobilinogen (test code = UA 1.0 0.1-1.0 Urobilinogen) [facility] AND [id number] 07:51:00 Test Item Value Reference Range Interpretation Comments UA Turbidity (test code Cloudy *ABN*(09/04/14 = UA Turbidity) 1:51 AM) [facility] AND [id number] 07:51:00 Test Item Value Reference Range Interpretation Comments UA Color (test code = Red *ABN*(09/04/14 1:51 UA Color) AM) [facility] AND [id number] 07:51:00 Test Item Value Reference Range Interpretation Comments UA Ketones (test code Negative *NA*(09/04/14 = UA Ketones) 1:51 AM) [facility] AND [id number] 07:51:00 Test Item Value Reference Range Interpretation Comments UA Glucose (test code Negative (09/04/14 1:51 = UA Glucose) AM) [facility] AND [id number] 07:51:00 Test Item Value Reference Range Interpretation Comments UA Protein (test code = Trace *ABN*(09/04/14 UA Protein) 1:51 AM) [facility] AND [id number] 07:51:00 Test Item Value Reference Range Interpretation Comments UA pH (test code = UA pH) 8.0 1 5.0-8.0 [facility] AND [id number] 07:51:00 Test Item Value Reference Range Interpretation Comments UA Spec Grav (test code = UA Spec 1.015 1 Grav) [facility] AND [id number] 07:51:00 Test Item Value Reference Range Interpretation Comments UA Bili (test code = Negative *NA*(09/04/14 UA Bili) 1:51 AM) [facility] AND [id number] 07:51:00 Test Item Value Reference Range Interpretation Comments UA Blood (test code = Large *ABN*(09/04/14 UA Blood) 1:51 AM) [facility] AND [id number] 07:51:00 Test Item Value Reference Range Interpretation Comments UA Leuk Est (test Negative (09/04/14 1:51 code = UA Leuk Est) AM) [facility] AND [id number] 07:51:00 Test Item Value Reference Range Interpretation Comments UA Nitrite (test code Negative (09/04/14 1:51 = UA Nitrite) AM) [facility] AND [id number] 07:51:00 Test Item Value Reference Range Interpretation Comments UA Amorph Joselin (test code = UA Few /HPF Amorph Joselin) [facility] AND [id number] 07:51:00 Test Item Value Reference Range Interpretation Comments UA RBC (test code 51-100 /HPF See_Comment [Automate d message] The = UA RBC) system which ge nerated this result tra nsmitted reference range : <=2. The reference r ozzy was not used to int erpret this result as normal/abnormal . [facility] AND [id number] 07:51:00 Test Item Value Reference Range Interpretation Comments UA WBC (test code = UA WBC) 6-10 /HPF [facility] AND [id number] 07:51:00 Test Item Value Reference Range Interpretation Comments UA Bacteria (test code = UA Few /HPF Bacteria) [facility] AND [id number] 07:51:00 Test Item Value Reference Range Interpretation Comments UA Sq Epi (test code = UA Sq Occasional /LPF Epi) [facility] [employer] [id number] 07:51:00 Test Item Value Reference Range Interpretation Comments ABO/Rh (test code = ABO/Rh) A POS [facility] [employer] [id number] 07:51:00 Test Item Value Reference Range Interpretation Comments Antibody Scrn (test Negative (09/04/14 1:51 code = Antibody Scrn) AM) [facility]2015-01-23 07:51:00 Test Item Value Reference Range Interpretation Comments Albumin Lvl (test code = Albumin Lvl) 3.4 3.5-5.0 [facility]2015-01-23 07:51:00 Test Item Value Reference Range Interpretation Comments Alk Phos (test code = Alk Phos) 64 39-136 [facility]2015-01-23 07:51:00 Test Item Value Reference Range Interpretation Comments ALT (test code = ALT) 18 See_Comment [Auto mated message] The system which ge nerated this result transmit gaye reference range : <=65. The reference range was not used to interpr et this result as satish l/abnormal. [facility] [id number] 07:51:00 Test Item Value Reference Range Interpretation Comments AST (test code = AST) 12 See_Comment [Auto mated message] The system which ge nerated this result transmit gaye reference range : <=37. The reference range was not used to interpr et this result as satish l/abnormal. [facility] [id number] 07:51:00 Test Item Value Reference Range Interpretation Comments eGFR (test code = eGFR) 93 [facility]2015-01-23 07:51:00 Test Item Value Reference Range Interpretation Comments Bili Total (test code = Bili Total) 0.3 0.2-1.3 [facility]2015-01-23 07:51:00 Test Item Value Reference Range Interpretation Comments Chloride Lvl (test code = Chloride Lvl) 108 95-109 [facility] [id number] 07:51:00 Test Item Value Reference Range Interpretation Comments Sodium Lvl (test code = Sodium Lvl) 138 135-145 [facility]2015-01-23 07:51:00 Test Item Value Reference Range Interpretation Comments Potassium Lvl (test code = Potassium 3.9 3.5-5.1 Lvl) [facility] [id number] 07:51:00 Test Item Value Reference Range Interpretation Comments CO2 (test code = CO2) 22 24-32 [facility]2015-01-23 07:51:00 Test Item Value Reference Range Interpretation Comments Calcium Lvl (test code = Calcium Lvl) 8.8 8.5-10.5 [facility]2015-01-23 07:51:00 Test Item Value Reference Range Interpretation Comments Glucose Lvl (test code = Glucose Lvl) 98 70-99 [facility]2015-01-23 07:51:00 Test Item Value Reference Range Interpretation Comments Total Protein (test code = Total 7.3 6.4-8.4 Protein) [facility]2015-01-23 07:51:00 Test Item Value Reference Range Interpretation Comments BUN (test code = BUN) 12 7- [facility]2015-01-23 07:51:00 Test Item Value Reference Range Interpretation Comments Creatinine Lvl (test code = Creatinine 0.8 0.5-1.4 Lvl) [facility]2015-01-23 07:51:00 Test Item Value Reference Range Interpretation Comments AGAP (test code = AGAP) 11.9 10.0-20.0 [facility]2015-01-23 07:51:00 Test Item Value Reference Range Interpretation Comments B/C Ratio (test code = B/C Ratio) 15 6-25 [facility]2015-01-23 07:51:00 Test Item Value Reference Range Interpretation Comments Globulin (test code = Globulin) 3.9 2.0-4.0 [facility]2015-01-23 07:51:00 Test Item Value Reference Range Interpretation Comments A/G Ratio (test code = A/G Ratio) 0.9 0.7-1.[address] [id number] 07:51:00 Test Item Value Reference Range Interpretation Comments hCG Tot (test code = hCG Tot) no gt [id number] 07:51:00 Test Item Value Reference Range Interpretation Comments MCHC (test code = MCHC) 33.8 32.0-36.0 [facility] [id number] 07:51:00 Test Item Value Reference Range Interpretation Comments MCH (test code = MCH) 30.3 pg 27.0-31.0 [facility] CenterFsmcxvlVVZLZSEFIY6559-20-24 07:51:00 Test Item Value Reference Range Interpretation Comments RDW (test code = RDW) 13.0 11.5-14.5 [facility] [id number] 07:51:00 Test Item Value Reference Range Interpretation Comments MPV (test code = MPV) 8.4 7.4-10.4 [facility] [id number] 07:51:00 Test Item Value Reference Range Interpretation Comments Platelet (test code = Platelet) 356 133-450 [facility] [id number] 07:51:00 Test Item Value Reference Range Interpretation Comments RBC (test code = RBC) 4.45 4.20-5.40 [facility] C[id number] 07:51:00 Test Item Value Reference Range Interpretation Comments WBC (test code = WBC) 12.9 3.7-10.4 [facility] [id number] 07:51:00 Test Item Value Reference Range Interpretation Comments Hgb (test code = Hgb) 13.5 12.0-16.0 [facility] CenterGebklsvCWGUPDKOPF0161-17-50 07:51:00 Test Item Value Reference Range Interpretation Comments MCV (test code = MCV) 89.7 80.0-98.0 [facility] [id number] 07:51:00 Test Item Value Reference Range Interpretation Comments Hct (test code = Hct) 39.9 36.0-48.0 [facility] C[id number] 07:51:00 Test Item Value Reference Range Interpretation Comments Eosinophils # (test code 0.3 See_Comment [A utomated message] The = Eosinophils #) system whic h generated this result tra nsmitted reference range : <=0.5. The reference r ozzy was not used to int erpret this result as normal/abnormal . [facility] [id number] 07:51:00 Test Item Value Reference Range Interpretation Comments Lymphocytes # (test code = Lymphocytes 3.6 1.0-5.5 #) [facility] [id number] 07:51:00 Test Item Value Reference Range Interpretation Comments Monocytes # (test code 0.7 See_Comment [Aut omated message] The = Monocytes #) system which generated this result tra nsmitted reference range : <=0.8. The reference r ozzy was not used to int erpret this result as normal/abnormal . [facility] [id number] 07:51:00 Test Item Value Reference Range Interpretation Comments Segs (test code = Segs) 63.9 45.0-75.0 [facility] [id number] 07:51:00 Test Item Value Reference Range Interpretation Comments Segs-Bands # (test code = Segs-Bands #) 8.2 1.5-8.1 [facility] [id number] 07:51:00 Test Item Value Reference Range Interpretation Comments Basophils (test code = 0.7 See_Comment [Aut omated message] The Basophils) system which ge nerated this result tra nsmitted reference range : <=1.0. The reference r ozzy was not used to int erpret this result as normal/abnormal . [facility] Cent[id number] 07:51:00 Test Item Value Reference Range Interpretation Comments Monocytes (test code = Monocytes) 5.4 2.0-12.0 [facility] [id number] 07:51:00 Test Item Value Reference Range Interpretation Comments Eosinophils (test code = 2.3 See_Comment [A utomated message] The Eosinophils) system which ge nerated this result tra nsmitted reference range : <=4.0. The reference r ozzy was not used to int erpret this result as normal/abnormal . [facility] C[id number] 07:51:00 Test Item Value Reference Range Interpretation Comments Lymphocytes (test code = Lymphocytes) 27.7 20.0-40.0 [facility] [id number] 07:51:00 Test Item Value Reference Range Interpretation Comments Basophils # (test code 0.1 See_Comment [Aut omated message] The = Basophils #) system which generated this result tra nsmitted reference range : <=0.2. The reference r ozzy was not used to int erpret this result as normal/abnormal . [facility]2015-01-23 07:51:00 Test Item Value Reference Range Interpretation Comments UA Urobilinogen (test code = UA 1.0 0.1-1.0 Urobilinogen) [facility]2015-01-23 07:51:00 Test Item Value Reference Range Interpretation Comments UA Turbidity (test code Cloudy *ABN*(09/04/14 = UA Turbidity) 1:51 AM) [facility] AND [id number] 07:51:00 Test Item Value Reference Range Interpretation Comments UA Color (test code = Red *ABN*(09/04/14 1:51 UA Color) AM) [facility] AND [id number] 07:51:00 Test Item Value Reference Range Interpretation Comments UA Ketones (test code Negative *NA*(09/04/14 = UA Ketones) 1:51 AM) [facility] AND [id number] 07:51:00 Test Item Value Reference Range Interpretation Comments UA Glucose (test code Negative (09/04/14 1:51 = UA Glucose) AM) [facility] AND [id number] 07:51:00 Test Item Value Reference Range Interpretation Comments UA Protein (test code = Trace *ABN*(09/04/14 UA Protein) 1:51 AM) [facility] AND [id number] 07:51:00 Test Item Value Reference Range Interpretation Comments UA pH (test code = UA pH) 8.0 1 5.0-8.0 [facility] AND [id number] 07:51:00 Test Item Value Reference Range Interpretation Comments UA Spec Grav (test code = UA Spec 1.015 1 Grav) [facility] AND [id number] 07:51:00 Test Item Value Reference Range Interpretation Comments UA Bili (test code = Negative *NA*(09/04/14 UA Bili) 1:51 AM) [facility] AND [id number] 07:51:00 Test Item Value Reference Range Interpretation Comments UA Blood (test code = Large *ABN*(09/04/14 UA Blood) 1:51 AM) [facility] AND [id number] 07:51:00 Test Item Value Reference Range Interpretation Comments UA Leuk Est (test Negative (09/04/14 1:51 code = UA Leuk Est) AM) [facility] AND [id number] 07:51:00 Test Item Value Reference Range Interpretation Comments UA Nitrite (test code Negative (09/04/14 1:51 = UA Nitrite) AM) [facility] AND [id number] 07:51:00 Test Item Value Reference Range Interpretation Comments UA Amorph Joselin (test code = UA Few /HPF Amorph Joselin) [facility] [id number] 07:51:00 Test Item Value Reference Range Interpretation Comments UA RBC (test code 51-100 /HPF See_Comment [Automate d message] The = UA RBC) system which ge nerated this result tra nsmitted reference range : <=2. The reference r ozzy was not used to int erpret this result as normal/abnormal . [facility] [id number] 07:51:00 Test Item Value Reference Range Interpretation Comments UA WBC (test code = UA WBC) 6-10 /HPF [facility] [id number] 07:51:00 Test Item Value Reference Range Interpretation Comments UA Bacteria (test code = UA Few /HPF Bacteria) [facility] AND [id number] 07:51:00 Test Item Value Reference Range Interpretation Comments UA Sq Epi (test code = UA Sq Occasional /LPF Epi) [facility] [employer] [id number] 07:51:00 Test Item Value Reference Range Interpretation Comments ABO/Rh (test code = ABO/Rh) A POS [facility] [employer] [id number] 07:51:00 Test Item Value Reference Range Interpretation Comments Antibody Scrn (test Negative (09/04/14 1:51 code = Antibody Scrn) AM) [facility] [employer] [id number] 07:51:00 Test Item Value Reference Range Interpretation Comments Albumin Lvl (test code = Albumin Lvl) 3.4 3.5-5.0 [facility] [employer] [id number] 07:51:00 Test Item Value Reference Range Interpretation Comments Alk Phos (test code = Alk Phos) 64 39-136 [facility] [employer] [id number] 07:51:00 Test Item Value Reference Range Interpretation Comments ALT (test code = ALT) 18 See_Comment [Auto mated message] The system which ge nerated this result transmit gaye reference range : <=65. The reference range was not used to interpr et this result as satish l/abnormal. [facility] [employer] [id number] 07:51:00 Test Item Value Reference Range Interpretation Comments AST (test code = AST) 12 See_Comment [Auto mated message] The system which ge nerated this result transmit gaye reference range : <=37. The reference range was not used to interpr et this result as satish l/abnormal. [facility]2015-01-23 07:51:00 Test Item Value Reference Range Interpretation Comments eGFR (test code = eGFR) 93 [facility]2015-01-23 07:51:00 Test Item Value Reference Range Interpretation Comments Bili Total (test code = Bili Total) 0.3 0.2-1.3 [facility]2015-01-23 07:51:00 Test Item Value Reference Range Interpretation Comments Chloride Lvl (test code = Chloride Lvl) 108 95-109 [facility]2015-01-23 07:51:00 Test Item Value Reference Range Interpretation Comments Sodium Lvl (test code = Sodium Lvl) 138 135-145 [facility]2015-01-23 07:51:00 Test Item Value Reference Range Interpretation Comments Potassium Lvl (test code = Potassium 3.9 3.5-5.1 Lvl) [facility]2015-01-23 07:51:00 Test Item Value Reference Range Interpretation Comments CO2 (test code = CO2) 22 24-32 [facility]2015-01-23 07:51:00 Test Item Value Reference Range Interpretation Comments Calcium Lvl (test code = Calcium Lvl) 8.8 8.5-10.5 [facility]2015-01-23 07:51:00 Test Item Value Reference Range Interpretation Comments Glucose Lvl (test code = Glucose Lvl) 98 70-99 [facility]2015-01-23 07:51:00 Test Item Value Reference Range Interpretation Comments Total Protein (test code = Total 7.3 6.4-8.4 Protein) [facility]2015-01-23 07:51:00 Test Item Value Reference Range Interpretation Comments BUN (test code = BUN) 12 - [facility]2015-01-23 07:51:00 Test Item Value Reference Range Interpretation Comments Creatinine Lvl (test code = Creatinine 0.8 0.5-1.4 Lvl) [facility]2015-01-23 07:51:00 Test Item Value Reference Range Interpretation Comments AGAP (test code = AGAP) 11.9 10.0-20.0 [facility]2015-01-23 07:51:00 Test Item Value Reference Range Interpretation Comments B/C Ratio (test code = B/C Ratio) 15 6-25 [facility]2015-01-23 07:51:00 Test Item Value Reference Range Interpretation Comments Globulin (test code = Globulin) 3.9 2.0-4.0 [facility]2015-01-23 07:51:00 Test Item Value Reference Range Interpretation Comments A/G Ratio (test code = A/G Ratio) 0.9 0.7-1.[address] [facility] [id number] 07:51:00 Test Item Value Reference Range Interpretation Comments hCG Tot (test code = hCG Tot) no gt [id number] 07:51:00 Test Item Value Reference Range Interpretation Comments MCHC (test code = MCHC) 33.8 32.0-36.0 [facility] CenterQgwvnxdEKMLSSIYNE5460-84-17 07:51:00 Test Item Value Reference Range Interpretation Comments MCH (test code = MCH) 30.3 pg 27.0-31.0 [facility] C[id number] 07:51:00 Test Item Value Reference Range Interpretation Comments RDW (test code = RDW) 13.0 11.5-14.5 [facility] CenterQraesswFTPQWDKVDJ5627-49-49 07:51:00 Test Item Value Reference Range Interpretation Comments MPV (test code = MPV) 8.4 7.4-10.4 [facility] CenterRycmgxbVBIVJLDXDH5540-33-30 07:51:00 Test Item Value Reference Range Interpretation Comments Platelet (test code = Platelet) 356 133-450 [facility] [id number] 07:51:00 Test Item Value Reference Range Interpretation Comments RBC (test code = RBC) 4.45 4.20-5.40 [facility] CenterTikehvwYVEPQVQQIQ5586-96-48 07:51:00 Test Item Value Reference Range Interpretation Comments WBC (test code = WBC) 12.9 3.7-10.4 [facility] Cent[id number] 07:51:00 Test Item Value Reference Range Interpretation Comments Hgb (test code = Hgb) 13.5 12.0-16.0 [facility] C[id number] 07:51:00 Test Item Value Reference Range Interpretation Comments MCV (test code = MCV) 89.7 80.0-98.0 [facility] CenterWxtrujhSHLTWSZQJW8657-31-29 07:51:00 Test Item Value Reference Range Interpretation Comments Hct (test code = Hct) 39.9 36.0-48.0 [facility] Cent[id number] 07:51:00 Test Item Value Reference Range Interpretation Comments Eosinophils # (test code 0.3 See_Comment [A utomated message] The = Eosinophils #) system whic h generated this result tra nsmitted reference range : <=0.5. The reference r ozzy was not used to int erpret this result as normal/abnormal . [facility] CenterUtbeyncTUGKZMSNNC4335-23-27 07:51:00 Test Item Value Reference Range Interpretation Comments Lymphocytes # (test code = Lymphocytes 3.6 1.0-5.5 #) [facility] CenterHyokdtdOJUQMLUGBO3521-57-30 07:51:00 Test Item Value Reference Range Interpretation Comments Monocytes # (test code 0.7 See_Comment [Aut omated message] The = Monocytes #) system which generated this result tra nsmitted reference range : <=0.8. The reference r ozzy was not used to int erpret this result as normal/abnormal . [facility] CenterHehjortOOESFWJROG4046-95-60 07:51:00 Test Item Value Reference Range Interpretation Comments Segs (test code = Segs) 63.9 45.0-75.0 [facility] Cent[id number] 07:51:00 Test Item Value Reference Range Interpretation Comments Segs-Bands # (test code = Segs-Bands #) 8.2 1.5-8.1 [facility] Cent[id number] 07:51:00 Test Item Value Reference Range Interpretation Comments Basophils (test code = 0.7 See_Comment [Aut omated message] The Basophils) system which ge nerated this result tra nsmitted reference range : <=1.0. The reference r ozzy was not used to int erpret this result as normal/abnormal . [facility] CenterGbobzfaYYQXYDKMVD7246-21-59 07:51:00 Test Item Value Reference Range Interpretation Comments Monocytes (test code = Monocytes) 5.4 2.0-12.0 [facility] Cent[id number] 07:51:00 Test Item Value Reference Range Interpretation Comments Eosinophils (test code = 2.3 See_Comment [A utomated message] The Eosinophils) system which ge nerated this result tra nsmitted reference range : <=4.0. The reference r ozzy was not used to int erpret this result as normal/abnormal . [facility] CenterZxhfgsrLXSNFPKQKO6311-61-87 07:51:00 Test Item Value Reference Range Interpretation Comments Lymphocytes (test code = Lymphocytes) 27.7 20.0-40.0 [facility] CenterNbvyqifAZSVZSSQFZ5619-65-09 07:51:00 Test Item Value Reference Range Interpretation Comments Basophils # (test code 0.1 See_Comment [Aut omated message] The = Basophils #) system which generated this result tra nsmitted reference range : <=0.2. The reference r ozzy was not used to int erpret this result as normal/abnormal . [facility] AND [id number] 07:51:00 Test Item Value Reference Range Interpretation Comments UA Urobilinogen (test code = UA 1.0 0.1-1.0 Urobilinogen) [facility] AND [id number] 07:51:00 Test Item Value Reference Range Interpretation Comments UA Turbidity (test code Cloudy *ABN*(09/04/14 = UA Turbidity) 1:51 AM) [facility] AND [id number] 07:51:00 Test Item Value Reference Range Interpretation Comments UA Color (test code = Red *ABN*(09/04/14 1:51 UA Color) AM) [facility] AND [id number] 07:51:00 Test Item Value Reference Range Interpretation Comments UA Ketones (test code Negative *NA*(09/04/14 = UA Ketones) 1:51 AM) [facility] AND [id number] 07:51:00 Test Item Value Reference Range Interpretation Comments UA Glucose (test code Negative (09/04/14 1:51 = UA Glucose) AM) [facility] AND [id number] 07:51:00 Test Item Value Reference Range Interpretation Comments UA Protein (test code = Trace *ABN*(09/04/14 UA Protein) 1:51 AM) [facility] AND [id number] 07:51:00 Test Item Value Reference Range Interpretation Comments UA pH (test code = UA pH) 8.0 1 5.0-8.0 [facility] AND [id number] 07:51:00 Test Item Value Reference Range Interpretation Comments UA Spec Grav (test code = UA Spec 1.015 1 Grav) [facility] AND [id number] 07:51:00 Test Item Value Reference Range Interpretation Comments UA Bili (test code = Negative *NA*(09/04/14 UA Bili) 1:51 AM) [facility] AND [id number] 07:51:00 Test Item Value Reference Range Interpretation Comments UA Blood (test code = Large *ABN*(09/04/14 UA Blood) 1:51 AM) [facility] AND [id number] 07:51:00 Test Item Value Reference Range Interpretation Comments UA Leuk Est (test Negative (09/04/14 1:51 code = UA Leuk Est) AM) [facility] AND [id number] 07:51:00 Test Item Value Reference Range Interpretation Comments UA Nitrite (test code Negative (09/04/14 1:51 = UA Nitrite) AM) [facility] AND [id number] 07:51:00 Test Item Value Reference Range Interpretation Comments UA Amorph Joselin (test code = UA Few /HPF Amorph Joselin) [facility] AND [id number] 07:51:00 Test Item Value Reference Range Interpretation Comments UA RBC (test code 51-100 /HPF See_Comment [Automate d message] The = UA RBC) system which ge nerated this result tra nsmitted reference range : <=2. The reference r ozzy was not used to int erpret this result as normal/abnormal . [facility] AND [id number] 07:51:00 Test Item Value Reference Range Interpretation Comments UA WBC (test code = UA WBC) 6-10 /HPF [facility] AND [id number] 07:51:00 Test Item Value Reference Range Interpretation Comments UA Bacteria (test code = UA Few /HPF Bacteria) [facility] AND [id number] 07:51:00 Test Item Value Reference Range Interpretation Comments UA Sq Epi (test code = UA Sq Occasional /LPF Epi) [facility] [employer] [id number] 07:51:00 Test Item Value Reference Range Interpretation Comments ABO/Rh (test code = ABO/Rh) A POS [facility] [employer] [id number] 07:51:00 Test Item Value Reference Range Interpretation Comments Antibody Scrn (test Negative (09/04/14 1:51 code = Antibody Scrn) AM) [facility] [place] [id number] 07:51:00 Test Item Value Reference Range Interpretation Comments Albumin Lvl (test code = Albumin Lvl) 3.4 3.5-5.0 [facility] [place] [id number] 07:51:00 Test Item Value Reference Range Interpretation Comments Alk Phos (test code = Alk Phos) 64 39-136 [facility] [place] [id number] 07:51:00 Test Item Value Reference Range Interpretation Comments ALT (test code = ALT) 18 See_Comment [Auto mated message] The system which ge nerated this result transmit gaye reference range : <=65. The reference range was not used to interpr et this result as satish l/abnormal. [facility] [place] [id number] 07:51:00 Test Item Value Reference Range Interpretation Comments AST (test code = AST) 12 See_Comment [Auto mated message] The system which ge nerated this result transmit gaye reference range : <=37. The reference range was not used to interpr et this result as satish l/abnormal. [facility] [place] [id number] 07:51:00 Test Item Value Reference Range Interpretation Comments eGFR (test code = eGFR) 93 [facility] [place] [id number] 07:51:00 Test Item Value Reference Range Interpretation Comments Bili Total (test code = Bili Total) 0.3 0.2-1.3 [facility] [place] [id number] 07:51:00 Test Item Value Reference Range Interpretation Comments Chloride Lvl (test code = Chloride Lvl) 108 95-109 [facility] [id number] 07:51:00 Test Item Value Reference Range Interpretation Comments Sodium Lvl (test code = Sodium Lvl) 138 135-145 [facility] [place] [id number] 07:51:00 Test Item Value Reference Range Interpretation Comments Potassium Lvl (test code = Potassium 3.9 3.5-5.1 Lvl) [facility]2015-01-23 07:51:00 Test Item Value Reference Range Interpretation Comments CO2 (test code = CO2) 22 24-32 [facility]2015-01-23 07:51:00 Test Item Value Reference Range Interpretation Comments Calcium Lvl (test code = Calcium Lvl) 8.8 8.5-10.5 [facility]2015-01-23 07:51:00 Test Item Value Reference Range Interpretation Comments Glucose Lvl (test code = Glucose Lvl) 98 70-99 [facility]2015-01-23 07:51:00 Test Item Value Reference Range Interpretation Comments Total Protein (test code = Total 7.3 6.4-8.4 Protein) [facility]2015-01-23 07:51:00 Test Item Value Reference Range Interpretation Comments BUN (test code = BUN) 12 - [facility]2015-01-23 07:51:00 Test Item Value Reference Range Interpretation Comments Creatinine Lvl (test code = Creatinine 0.8 0.5-1.4 Lvl) [facility]2015-01-23 07:51:00 Test Item Value Reference Range Interpretation Comments AGAP (test code = AGAP) 11.9 10.0-20.0 [facility]2015-01-23 07:51:00 Test Item Value Reference Range Interpretation Comments B/C Ratio (test code = B/C Ratio) 15 6-25 [facility]2015-01-23 07:51:00 Test Item Value Reference Range Interpretation Comments Globulin (test code = Globulin) 3.9 2.0-4.0 [facility]2015-01-23 07:51:00 Test Item Value Reference Range Interpretation Comments A/G Ratio (test code = A/G Ratio) 0.9 0.7-1.6 [id number] 07:[facility]:00 Test Item Value Reference Range Interpretation Comments hCG Tot (test code = hCG Tot) [facility] gt [id number] 07:51:00 Test Item Value Reference Range Interpretation Comments MCHC (test code = MCHC) 33.8 32.0-36.0 [id number] 07:51:00 Test Item Value Reference Range Interpretation Comments MCH (test code = MCH) 30.3 pg 27.0-31.0 [facility] CenterJfdskekFPUQPFGFWD7736-07-59 07:51:00 Test Item Value Reference Range Interpretation Comments RDW (test code = RDW) 13.0 11.5-14.5 [facility] CenterInwutqnROVBEPBGOV6736-14-01 07:51:00 Test Item Value Reference Range Interpretation Comments MPV (test code = MPV) 8.4 7.4-10.4 [facility] CenterIrusxnwCVPVMKBNQX6495-60-83 07:51:00 Test Item Value Reference Range Interpretation Comments Platelet (test code = Platelet) 356 133-450 [facility] CenterCabjucvNKLMGIVTMN0721-77-96 07:51:00 Test Item Value Reference Range Interpretation Comments RBC (test code = RBC) 4.45 4.20-5.40 [facility] CenterDlgppwcHKRDEPEFWN8463-61-73 07:51:00 Test Item Value Reference Range Interpretation Comments WBC (test code = WBC) 12.9 3.7-10.4 [facility] [id number] 07:51:00 Test Item Value Reference Range Interpretation Comments Hgb (test code = Hgb) 13.5 12.0-16.0 [facility] CenterBrakuhtUQCFBSUROC7207-50-23 07:51:00 Test Item Value Reference Range Interpretation Comments MCV (test code = MCV) 89.7 80.0-98.0 [facility] C[id number] 07:51:00 Test Item Value Reference Range Interpretation Comments Hct (test code = Hct) 39.9 36.0-48.0 [facility] [id number] 07:51:00 Test Item Value Reference Range Interpretation Comments Eosinophils # (test code 0.3 See_Comment [A utomated message] The = Eosinophils #) system whic h generated this result tra nsmitted reference range : <=0.5. The reference r ozzy was not used to int erpret this result as normal/abnormal . [facility] CenterQoxnvomVPJUWHNQSB6510-10-63 07:51:00 Test Item Value Reference Range Interpretation Comments Lymphocytes # (test code = Lymphocytes 3.6 1.0-5.5 #) [facility] [id number] 07:51:00 Test Item Value Reference Range Interpretation Comments Monocytes # (test code 0.7 See_Comment [Aut omated message] The = Monocytes #) system which generated this result tra nsmitted reference range : <=0.8. The reference r ozzy was not used to int erpret this result as normal/abnormal . [facility] CenterQwruvlrRSBTZXYRBK2590-35-23 07:51:00 Test Item Value Reference Range Interpretation Comments Segs (test code = Segs) 63.9 45.0-75.0 [facility] [id number] 07:51:00 Test Item Value Reference Range Interpretation Comments Segs-Bands # (test code = Segs-Bands #) 8.2 1.5-8.1 [facility] [id number] 07:51:00 Test Item Value Reference Range Interpretation Comments Basophils (test code = 0.7 See_Comment [Aut omated message] The Basophils) system which ge nerated this result tra nsmitted reference range : <=1.0. The reference r ozzy was not used to int erpret this result as normal/abnormal . [facility] [id number] 07:51:00 Test Item Value Reference Range Interpretation Comments Monocytes (test code = Monocytes) 5.4 2.0-12.0 [facility] CenterLmwfwkePWSXGSMYJW5649-01-90 07:51:00 Test Item Value Reference Range Interpretation Comments Eosinophils (test code = 2.3 See_Comment [A utomated message] The Eosinophils) system which ge nerated this result tra nsmitted reference range : <=4.0. The reference r ozzy was not used to int erpret this result as normal/abnormal . [facility] C[id number] 07:51:00 Test Item Value Reference Range Interpretation Comments Lymphocytes (test code = Lymphocytes) 27.7 20.0-40.0 [facility] CenterKdjlcsiVPONAJTQEB9403-69-98 07:51:00 Test Item Value Reference Range Interpretation Comments Basophils # (test code 0.1 See_Comment [Aut omated message] The = Basophils #) system which generated this result tra nsmitted reference range : <=0.2. The reference r ozzy was not used to int erpret this result as normal/abnormal . [facility]2015-01-23 07:51:00 Test Item Value Reference Range Interpretation Comments UA Urobilinogen (test code = UA 1.0 0.1-1.0 Urobilinogen) [facility] AND [id number] 07:51:00 Test Item Value Reference Range Interpretation Comments UA Turbidity (test code Cloudy *ABN*(09/04/14 = UA Turbidity) 1:51 AM) [facility] AND [id number] 07:51:00 Test Item Value Reference Range Interpretation Comments UA Color (test code = Red *ABN*(09/04/14 1:51 UA Color) AM) [facility] AND [id number] 07:51:00 Test Item Value Reference Range Interpretation Comments UA Ketones (test code Negative *NA*(09/04/14 = UA Ketones) 1:51 AM) [facility] AND [id number] 07:51:00 Test Item Value Reference Range Interpretation Comments UA Glucose (test code Negative (09/04/14 1:51 = UA Glucose) AM) [facility] AND [id number] 07:51:00 Test Item Value Reference Range Interpretation Comments UA Protein (test code = Trace *ABN*(09/04/14 UA Protein) 1:51 AM) [facility] AND [id number] 07:51:00 Test Item Value Reference Range Interpretation Comments UA pH (test code = UA pH) 8.0 1 5.0-8.0 [facility] [id number] 07:51:00 Test Item Value Reference Range Interpretation Comments UA Spec Grav (test code = UA Spec 1.015 1 Grav) [facility] AND [id number] 07:51:00 Test Item Value Reference Range Interpretation Comments UA Bili (test code = Negative *NA*(09/04/14 UA Bili) 1:51 AM) [facility] AND [id number] 07:51:00 Test Item Value Reference Range Interpretation Comments UA Blood (test code = Large *ABN*(09/04/14 UA Blood) 1:51 AM) [facility] AND [id number] 07:51:00 Test Item Value Reference Range Interpretation Comments UA Leuk Est (test Negative (09/04/14 1:51 code = UA Leuk Est) AM) [facility] AND [id number] 07:51:00 Test Item Value Reference Range Interpretation Comments UA Nitrite (test code Negative (09/04/14 1:51 = UA Nitrite) AM) [facility] AND [id number] 07:51:00 Test Item Value Reference Range Interpretation Comments UA Amorph Joselin (test code = UA Few /HPF Amorph Joselin) [facility] AND [id number] 07:51:00 Test Item Value Reference Range Interpretation Comments UA RBC (test code 51-100 /HPF See_Comment [Automate d message] The = UA RBC) system which ge nerated this result tra nsmitted reference range : <=2. The reference r ozzy was not used to int erpret this result as normal/abnormal . [facility] [id number] 07:51:00 Test Item Value Reference Range Interpretation Comments UA WBC (test code = UA WBC) 6-10 /HPF [facility] AND [id number] 07:51:00 Test Item Value Reference Range Interpretation Comments UA Bacteria (test code = UA Few /HPF Bacteria) [facility] AND [id number] 07:51:00 Test Item Value Reference Range Interpretation Comments UA Sq Epi (test code = UA Sq Occasional /LPF Epi) [facility] [employer] [id number] 07:51:00 Test Item Value Reference Range Interpretation Comments ABO/Rh (test code = ABO/Rh) A POS [facility] [employer] [id number] 07:51:00 Test Item Value Reference Range Interpretation Comments Antibody Scrn (test Negative (09/04/14 1:51 code = Antibody Scrn) AM) [facility] [place] [id number] 07:51:00 Test Item Value Reference Range Interpretation Comments Albumin Lvl (test code = Albumin Lvl) 3.4 3.5-5.0 [facility] [place] [id number] 07:51:00 Test Item Value Reference Range Interpretation Comments Alk Phos (test code = Alk Phos) 64 39-136 [facility] [place] [id number] 07:51:00 Test Item Value Reference Range Interpretation Comments ALT (test code = ALT) 18 See_Comment [Auto mated message] The system which ge nerated this result transmit gaye reference range : <=65. The reference range was not used to interpr et this result as satish l/abnormal. [facility]2015-01-23 07:51:00 Test Item Value Reference Range Interpretation Comments AST (test code = AST) 12 See_Comment [Auto mated message] The system which ge nerated this result transmit gaye reference range : <=37. The reference range was not used to interpr et this result as satish l/abnormal. [facility]2015-01-23 07:51:00 Test Item Value Reference Range Interpretation Comments eGFR (test code = eGFR) 93 [facility]2015-01-23 07:51:00 Test Item Value Reference Range Interpretation Comments Bili Total (test code = Bili Total) 0.3 0.2-1.3 [facility]2015-01-23 07:51:00 Test Item Value Reference Range Interpretation Comments Chloride Lvl (test code = Chloride Lvl) 108 95-109 [facility]2015-01-23 07:51:00 Test Item Value Reference Range Interpretation Comments Sodium Lvl (test code = Sodium Lvl) 138 135-145 [facility]2015-01-23 07:51:00 Test Item Value Reference Range Interpretation Comments Potassium Lvl (test code = Potassium 3.9 3.5-5.1 Lvl) [facility]2015-01-23 07:51:00 Test Item Value Reference Range Interpretation Comments CO2 (test code = CO2) 22 24-32 [facility]2015-01-23 07:51:00 Test Item Value Reference Range Interpretation Comments Calcium Lvl (test code = Calcium Lvl) 8.8 8.5-10.5 [facility]2015-01-23 07:51:00 Test Item Value Reference Range Interpretation Comments Glucose Lvl (test code = Glucose Lvl) 98 70-99 [facility]2015-01-23 07:51:00 Test Item Value Reference Range Interpretation Comments Total Protein (test code = Total 7.3 6.4-8.4 Protein) [facility]2015-01-23 07:51:00 Test Item Value Reference Range Interpretation Comments BUN (test code = BUN) 12 7-22 [facility]2015-01-23 07:51:00 Test Item Value Reference Range Interpretation Comments Creatinine Lvl (test code = Creatinine 0.8 0.5-1.4 Lvl) [facility]2015-01-23 07:51:00 Test Item Value Reference Range Interpretation Comments AGAP (test code = AGAP) 11.9 10.0-20.0 [facility]2015-01-23 07:51:00 Test Item Value Reference Range Interpretation Comments B/C Ratio (test code = B/C Ratio) 15 6-25 [facility]2015-01-23 07:51:00 Test Item Value Reference Range Interpretation Comments Globulin (test code = Globulin) 3.9 2.0-4.0 [facility]2015-01-23 07:51:00 Test Item Value Reference Range Interpretation Comments A/G Ratio (test code = A/G Ratio) 0.9 0.7-1.[address] [id number] 07:51:00 Test Item Value Reference Range Interpretation Comments hCG Tot (test code = hCG Tot) no gt [facility]IhfnaowWNAWRWWDEM1681-24-25 07:51:00 Test Item Value Reference Range Interpretation Comments MCHC (test code = MCHC) 33.8 32.0-36.0 [facility] CenterEkosvqnHSZRDEZYDB5764-42-58 07:51:00 Test Item Value Reference Range Interpretation Comments MCH (test code = MCH) 30.3 pg 27.0-31.0 [facility] [id number] 07:51:00 Test Item Value Reference Range Interpretation Comments RDW (test code = RDW) 13.0 11.5-14.5 [facility] CenterRgerivuOYGPMBDCVC2998-72-27 07:51:00 Test Item Value Reference Range Interpretation Comments MPV (test code = MPV) 8.4 7.4-10.4 [facility] CenterLnfcwfeMGJNDWAUPD8038-55-24 07:51:00 Test Item Value Reference Range Interpretation Comments Platelet (test code = Platelet) 356 133-450 [facility] CenterQssprswXUNMNHAFAK9299-33-11 07:51:00 Test Item Value Reference Range Interpretation Comments RBC (test code = RBC) 4.45 4.20-5.40 [facility] CenterTxcjndvTEDSWEIEXB7930-14-00 07:51:00 Test Item Value Reference Range Interpretation Comments WBC (test code = WBC) 12.9 3.7-10.4 [facility] CenterUheaeomVSJAHREKTX4485-10-92 07:51:00 Test Item Value Reference Range Interpretation Comments Hgb (test code = Hgb) 13.5 12.0-16.0 [facility] CenterBivabzsSLUKZKKLFJ9238-71-55 07:51:00 Test Item Value Reference Range Interpretation Comments MCV (test code = MCV) 89.7 80.0-98.0 [facility] CenterVoplrmxMQWFKVFCDE1113-24-78 07:51:00 Test Item Value Reference Range Interpretation Comments Hct (test code = Hct) 39.9 36.0-48.0 [facility] CenterBrnxlkzSPDVCERQBN8715-14-02 07:51:00 Test Item Value Reference Range Interpretation Comments Eosinophils # (test code 0.3 See_Comment [A utomated message] The = Eosinophils #) system whic h generated this result tra nsmitted reference range : <=0.5. The reference r ozzy was not used to int erpret this result as normal/abnormal . [facility] CenterFfslcmtGOBJEMIPYM8856-82-79 07:51:00 Test Item Value Reference Range Interpretation Comments Lymphocytes # (test code = Lymphocytes 3.6 1.0-5.5 #) [facility] CenterGmenyzjUESRGGASKH4980-20-54 07:51:00 Test Item Value Reference Range Interpretation Comments Monocytes # (test code 0.7 See_Comment [Aut omated message] The = Monocytes #) system which generated this result tra nsmitted reference range : <=0.8. The reference r ozzy was not used to int erpret this result as normal/abnormal . [facility] CenterCeoutklGAZQFOPIDF3813-40-94 07:51:00 Test Item Value Reference Range Interpretation Comments Segs (test code = Segs) 63.9 45.0-75.0 [facility] CenterDbtuktcTKCHJUHQBT6059-60-40 07:51:00 Test Item Value Reference Range Interpretation Comments Segs-Bands # (test code = Segs-Bands #) 8.2 1.5-8.1 [facility] [id number] 07:51:00 Test Item Value Reference Range Interpretation Comments Basophils (test code = 0.7 See_Comment [Aut omated message] The Basophils) system which ge nerated this result tra nsmitted reference range : <=1.0. The reference r ozzy was not used to int erpret this result as normal/abnormal . [facility] CenterHsotzfqPSGSSBFXPT9820-06-96 07:51:00 Test Item Value Reference Range Interpretation Comments Monocytes (test code = Monocytes) 5.4 2.0-12.0 [facility] CenterOiegectVOFZHRQWGK3310-58-54 07:51:00 Test Item Value Reference Range Interpretation Comments Eosinophils (test code = 2.3 See_Comment [A utomated message] The Eosinophils) system which ge nerated this result tra nsmitted reference range : <=4.0. The reference r ozzy was not used to int erpret this result as normal/abnormal . [facility] CenterVchjtokLPOCEALNZZ9778-92-36 07:51:00 Test Item Value Reference Range Interpretation Comments Lymphocytes (test code = Lymphocytes) 27.7 20.0-40.0 [facility] CenterLabunolOSFHGXJQBR1886-41-69 07:51:00 Test Item Value Reference Range Interpretation Comments Basophils # (test code 0.1 See_Comment [Aut omated message] The = Basophils #) system which generated this result tra nsmitted reference range : <=0.2. The reference r ozzy was not used to int erpret this result as normal/abnormal . [facility]2015-01-23 07:51:00 Test Item Value Reference Range Interpretation Comments UA Urobilinogen (test code = UA 1.0 0.1-1.0 Urobilinogen) [facility] AND [id number] 07:51:00 Test Item Value Reference Range Interpretation Comments UA Turbidity (test code Cloudy *ABN*(09/04/14 = UA Turbidity) 1:51 AM) [facility]2015-01-23 07:51:00 Test Item Value Reference Range Interpretation Comments UA Color (test code = Red *ABN*(09/04/14 1:51 UA Color) AM) [facility]2015-01-23 07:51:00 Test Item Value Reference Range Interpretation Comments UA Ketones (test code Negative *NA*(09/04/14 = UA Ketones) 1:51 AM) [facility] AND [id number] 07:51:00 Test Item Value Reference Range Interpretation Comments UA Glucose (test code Negative (09/04/14 1:51 = UA Glucose) AM) [facility] AND [id number] 07:51:00 Test Item Value Reference Range Interpretation Comments UA Protein (test code = Trace *ABN*(09/04/14 UA Protein) 1:51 AM) [facility] AND [id number] 07:51:00 Test Item Value Reference Range Interpretation Comments UA pH (test code = UA pH) 8.0 1 5.0-8.0 [facility] AND [id number] 07:51:00 Test Item Value Reference Range Interpretation Comments UA Spec Grav (test code = UA Spec 1.015 1 Grav) [facility] AND [id number] 07:51:00 Test Item Value Reference Range Interpretation Comments UA Bili (test code = Negative *NA*(09/04/14 UA Bili) 1:51 AM) [facility] AND [id number] 07:51:00 Test Item Value Reference Range Interpretation Comments UA Blood (test code = Large *ABN*(09/04/14 UA Blood) 1:51 AM) [facility] AND [id number] 07:51:00 Test Item Value Reference Range Interpretation Comments UA Leuk Est (test Negative (09/04/14 1:51 code = UA Leuk Est) AM) [facility] AND [id number] 07:51:00 Test Item Value Reference Range Interpretation Comments UA Nitrite (test code Negative (09/04/14 1:51 = UA Nitrite) AM) [facility] AND [id number] 07:51:00 Test Item Value Reference Range Interpretation Comments UA Amorph Joselin (test code = UA Few /HPF Amorph Joselin) [facility] AND [id number] 07:51:00 Test Item Value Reference Range Interpretation Comments UA RBC (test code 51-100 /HPF See_Comment [Automate d message] The = UA RBC) system which ge nerated this result tra nsmitted reference range : <=2. The reference r ozzy was not used to int erpret this result as normal/abnormal . [facility] AND [id number] 07:51:00 Test Item Value Reference Range Interpretation Comments UA WBC (test code = UA WBC) 6-10 /HPF [facility] AND [id number] 07:51:00 Test Item Value Reference Range Interpretation Comments UA Bacteria (test code = UA Few /HPF Bacteria) [facility] [id number] 07:51:00 Test Item Value Reference Range Interpretation Comments UA Sq Epi (test code = UA Sq Occasional /LPF Epi) [facility] [employer] [id number] 07:51:00 Test Item Value Reference Range Interpretation Comments ABO/Rh (test code = ABO/Rh) A POS [facility] [employer] [id number] 07:51:00 Test Item Value Reference Range Interpretation Comments Antibody Scrn (test Negative (09/04/14 1:51 code = Antibody Scrn) AM) [facility] [place] [id number] 07:51:00 Test Item Value Reference Range Interpretation Comments Albumin Lvl (test code = Albumin Lvl) 3.4 3.5-5.0 [facility] [place] [id number] 07:51:00 Test Item Value Reference Range Interpretation Comments Alk Phos (test code = Alk Phos) 64 39-136 [facility] [place] [id number] 07:51:00 Test Item Value Reference Range Interpretation Comments ALT (test code = ALT) 18 See_Comment [Auto mated message] The system which ge nerated this result transmit gaye reference range : <=65. The reference range was not used to interpr et this result as satish l/abnormal. [facility] [place] [id number] 07:51:00 Test Item Value Reference Range Interpretation Comments AST (test code = AST) 12 See_Comment [Auto mated message] The system which ge nerated this result transmit gaye reference range : <=37. The reference range was not used to interpr et this result as satish l/abnormal. [facility] [place] [id number] 07:51:00 Test Item Value Reference Range Interpretation Comments eGFR (test code = eGFR) 93 [facility] [place] [id number] 07:51:00 Test Item Value Reference Range Interpretation Comments Bili Total (test code = Bili Total) 0.3 0.2-1.3 [facility] [place] [id number] 07:51:00 Test Item Value Reference Range Interpretation Comments Chloride Lvl (test code = Chloride Lvl) 108 95-109 [facility] [place] [id number] 07:51:00 Test Item Value Reference Range Interpretation Comments Sodium Lvl (test code = Sodium Lvl) 138 135-145 [facility]2015-01-23 07:51:00 Test Item Value Reference Range Interpretation Comments Potassium Lvl (test code = Potassium 3.9 3.5-5.1 Lvl) [facility]2015-01-23 07:51:00 Test Item Value Reference Range Interpretation Comments CO2 (test code = CO2) 22 24-32 [facility]2015-01-23 07:51:00 Test Item Value Reference Range Interpretation Comments Calcium Lvl (test code = Calcium Lvl) 8.8 8.5-10.5 [facility]2015-01-23 07:51:00 Test Item Value Reference Range Interpretation Comments Glucose Lvl (test code = Glucose Lvl) 98 70-99 [facility]2015-01-23 07:51:00 Test Item Value Reference Range Interpretation Comments Total Protein (test code = Total 7.3 6.4-8.4 Protein) [facility]2015-01-23 07:51:00 Test Item Value Reference Range Interpretation Comments BUN (test code = BUN) 12 7-22 [facility]2015-01-23 07:51:00 Test Item Value Reference Range Interpretation Comments Creatinine Lvl (test code = Creatinine 0.8 0.5-1.4 Lvl) [facility]2015-01-23 07:51:00 Test Item Value Reference Range Interpretation Comments AGAP (test code = AGAP) 11.9 10.0-20.0 [facility]2015-01-23 07:51:00 Test Item Value Reference Range Interpretation Comments B/C Ratio (test code = B/C Ratio) 15 6-25 [facility]2015-01-23 07:51:00 Test Item Value Reference Range Interpretation Comments Globulin (test code = Globulin) 3.9 2.0-4.0 [facility]2015-01-23 07:51:00 Test Item Value Reference Range Interpretation Comments A/G Ratio (test code = A/G Ratio) 0.9 0.7-1.6 [id number] 07:51:00 Test Item Value Reference Range Interpretation Comments hCG Tot (test code = hCG Tot) no gt [facility]QezgarhEORCYSNKHZ7746-59-67 07:51:00 Test Item Value Reference Range Interpretation Comments MCHC (test code = MCHC) 33.8 32.0-36.0 [facility]LdqzxvnOHLVDXGOTY6895-06-14 07:51:00 Test Item Value Reference Range Interpretation Comments MCH (test code = MCH) 30.3 pg 27.0-31.0 [facility] CenterLqsoqcpTODAEROPEO4705-98-77 07:51:00 Test Item Value Reference Range Interpretation Comments RDW (test code = RDW) 13.0 11.5-14.5 [facility] CenterNgwgbhkEHCRRWFJGL4442-16-43 07:51:00 Test Item Value Reference Range Interpretation Comments MPV (test code = MPV) 8.4 7.4-10.4 [facility] CenterSesnzunBHIBOOWIOD9614-21-02 07:51:00 Test Item Value Reference Range Interpretation Comments Platelet (test code = Platelet) 356 133-450 [facility] CenterHqcbzlhNIERRYQNTL4667-25-36 07:51:00 Test Item Value Reference Range Interpretation Comments RBC (test code = RBC) 4.45 4.20-5.40 [facility] CenterGhmmutdUTWFZHOCEH6477-52-99 07:51:00 Test Item Value Reference Range Interpretation Comments WBC (test code = WBC) 12.9 3.7-10.4 [facility] CenterHhigsarLXXHYXZBPJ4036-47-56 07:51:00 Test Item Value Reference Range Interpretation Comments Hgb (test code = Hgb) 13.5 12.0-16.0 [facility] CenterGyzxzipRRYPBWPFHX3027-21-85 07:51:00 Test Item Value Reference Range Interpretation Comments MCV (test code = MCV) 89.7 80.0-98.0 [facility] CenterPmmudekTYQDFXFATY5347-40-21 07:51:00 Test Item Value Reference Range Interpretation Comments Hct (test code = Hct) 39.9 36.0-48.0 [facility] CenterUlpjxifMFFMWUMBGZ4747-33-50 07:51:00 Test Item Value Reference Range Interpretation Comments Eosinophils # (test code 0.3 See_Comment [A utomated message] The = Eosinophils #) system whic h generated this result tra nsmitted reference range : <=0.5. The reference r ozzy was not used to int erpret this result as normal/abnormal . [facility] CenterPvbdnviEPZWXGYFKW2584-82-69 07:51:00 Test Item Value Reference Range Interpretation Comments Lymphocytes # (test code = Lymphocytes 3.6 1.0-5.5 #) [facility] CenterXdfspfbSBAHVDZCMF5239-84-73 07:51:00 Test Item Value Reference Range Interpretation Comments Monocytes # (test code 0.7 See_Comment [Aut omated message] The = Monocytes #) system which generated this result tra nsmitted reference range : <=0.8. The reference r ozzy was not used to int erpret this result as normal/abnormal . [facility] CenterVembvsjCCCNPCPNRE5356-63-40 07:51:00 Test Item Value Reference Range Interpretation Comments Segs (test code = Segs) 63.9 45.0-75.0 [facility] CenterQtyiqseBPKUJJULVQ6301-52-21 07:51:00 Test Item Value Reference Range Interpretation Comments Segs-Bands # (test code = Segs-Bands #) 8.2 1.5-8.1 [facility] CenterFarlszzOSUJSYHKHI8915-16-75 07:51:00 Test Item Value Reference Range Interpretation Comments Basophils (test code = 0.7 See_Comment [Aut omated message] The Basophils) system which ge nerated this result tra nsmitted reference range : <=1.0. The reference r ozzy was not used to int erpret this result as normal/abnormal . [facility] C[id number] 07:51:00 Test Item Value Reference Range Interpretation Comments Monocytes (test code = Monocytes) 5.4 2.0-12.0 [facility] C[id number] 07:51:00 Test Item Value Reference Range Interpretation Comments Eosinophils (test code = 2.3 See_Comment [A utomated message] The Eosinophils) system which ge nerated this result tra nsmitted reference range : <=4.0. The reference r ozzy was not used to int erpret this result as normal/abnormal . [facility] Cent[id number] 07:51:00 Test Item Value Reference Range Interpretation Comments Lymphocytes (test code = Lymphocytes) 27.7 20.0-40.0 [facility] CenterCoehfllJJGXWWPPHA2207-86-78 07:51:00 Test Item Value Reference Range Interpretation Comments Basophils # (test code 0.1 See_Comment [Aut omated message] The = Basophils #) system which generated this result tra nsmitted reference range : <=0.2. The reference r ozzy was not used to int erpret this result as normal/abnormal . [facility] AND [id number] 07:51:00 Test Item Value Reference Range Interpretation Comments UA Urobilinogen (test code = UA 1.0 0.1-1.0 Urobilinogen) [facility] AND [id number] 07:51:00 Test Item Value Reference Range Interpretation Comments UA Turbidity (test code Cloudy *ABN*(09/04/14 = UA Turbidity) 1:51 AM) [facility] AND [id number] 07:51:00 Test Item Value Reference Range Interpretation Comments UA Color (test code = Red *ABN*(09/04/14 1:51 UA Color) AM) [facility] AND [id number] 07:51:00 Test Item Value Reference Range Interpretation Comments UA Ketones (test code Negative *NA*(09/04/14 = UA Ketones) 1:51 AM) [facility] AND [id number] 07:51:00 Test Item Value Reference Range Interpretation Comments UA Glucose (test code Negative (09/04/14 1:51 = UA Glucose) AM) [facility] AND [id number] 07:51:00 Test Item Value Reference Range Interpretation Comments UA Protein (test code = Trace *ABN*(09/04/14 UA Protein) 1:51 AM) [facility] AND [id number] 07:51:00 Test Item Value Reference Range Interpretation Comments UA pH (test code = UA pH) 8.0 1 5.0-8.0 [facility] AND [id number] 07:51:00 Test Item Value Reference Range Interpretation Comments UA Spec Grav (test code = UA Spec 1.015 1 Grav) [facility] AND [id number] 07:51:00 Test Item Value Reference Range Interpretation Comments UA Bili (test code = Negative *NA*(09/04/14 UA Bili) 1:51 AM) [facility] AND [id number] 07:51:00 Test Item Value Reference Range Interpretation Comments UA Blood (test code = Large *ABN*(09/04/14 UA Blood) 1:51 AM) [facility] AND [id number] 07:51:00 Test Item Value Reference Range Interpretation Comments UA Leuk Est (test Negative (09/04/14 1:51 code = UA Leuk Est) AM) [facility] AND [id number] 07:51:00 Test Item Value Reference Range Interpretation Comments UA Nitrite (test code Negative (09/04/14 1:51 = UA Nitrite) AM) [facility] AND [id number] 07:51:00 Test Item Value Reference Range Interpretation Comments UA Amorph Joselin (test code = UA Few /HPF Amorph Joselin) [facility] AND [id number] 07:51:00 Test Item Value Reference Range Interpretation Comments UA RBC (test code 51-100 /HPF See_Comment [Automate d message] The = UA RBC) system which ge nerated this result tra nsmitted reference range : <=2. The reference r ozzy was not used to int erpret this result as normal/abnormal . [facility] AND [id number] 07:51:00 Test Item Value Reference Range Interpretation Comments UA WBC (test code = UA WBC) 6-10 /HPF [facility] AND [id number] 07:51:00 Test Item Value Reference Range Interpretation Comments UA Bacteria (test code = UA Few /HPF Bacteria) [facility] AND [id number] 07:51:00 Test Item Value Reference Range Interpretation Comments UA Sq Epi (test code = UA Sq Occasional /LPF Epi) [facility] [employer] [id number] 07:51:00 Test Item Value Reference Range Interpretation Comments ABO/Rh (test code = ABO/Rh) A POS [facility] [employer] [id number] 07:51:00 Test Item Value Reference Range Interpretation Comments Antibody Scrn (test Negative (09/04/14 1:51 code = Antibody Scrn) AM) [facility] [place] [id number] 07:51:00 Test Item Value Reference Range Interpretation Comments Albumin Lvl (test code = Albumin Lvl) 3.4 3.5-5.0 [facility] [place] [id number] 07:51:00 Test Item Value Reference Range Interpretation Comments Alk Phos (test code = Alk Phos) 64 39-136 [facility]2015-01-23 07:51:00 Test Item Value Reference Range Interpretation Comments ALT (test code = ALT) 18 See_Comment [Auto mated message] The system which ge nerated this result transmit gaye reference range : <=65. The reference range was not used to interpr et this result as satish l/abnormal. [facility]2015-01-23 07:51:00 Test Item Value Reference Range Interpretation Comments AST (test code = AST) 12 See_Comment [Auto mated message] The system which ge nerated this result transmit gaye reference range : <=37. The reference range was not used to interpr et this result as satish l/abnormal. [facility] CenterStartup FreakSANDHILLS REGIONAL MEDICAL [id number] 07:51:00 Test Item Value Reference Range Interpretation Comments eGFR (test code = eGFR) 93 [facility]2015-01-23 07:51:00 Test Item Value Reference Range Interpretation Comments Bili Total (test code = Bili Total) 0.3 0.2-1.3 [facility]2015-01-23 07:51:00 Test Item Value Reference Range Interpretation Comments Chloride Lvl (test code = Chloride Lvl) 108 95-109 [facility] CenterStartup FreakSANDHILLS REGIONAL MEDICAL CENTERFZMCI1920-26-30 07:51:00 Test Item Value Reference Range Interpretation Comments Sodium Lvl (test code = Sodium Lvl) 138 135-145 [facility]2015-01-23 07:51:00 Test Item Value Reference Range Interpretation Comments Potassium Lvl (test code = Potassium 3.9 3.5-5.1 Lvl) [facility]2015-01-23 07:51:00 Test Item Value Reference Range Interpretation Comments CO2 (test code = CO2) 22 24-32 [facility] CenterStartup FreakSANDHILLS REGIONAL MEDICAL [id number] 07:51:00 Test Item Value Reference Range Interpretation Comments Calcium Lvl (test code = Calcium Lvl) 8.8 8.5-10.5 [facility]2015-01-23 07:51:00 Test Item Value Reference Range Interpretation Comments Glucose Lvl (test code = Glucose Lvl) 98 70-99 [facility]2015-01-23 07:51:00 Test Item Value Reference Range Interpretation Comments Total Protein (test code = Total 7.3 6.4-8.4 Protein) [facility]2015-01-23 07:51:00 Test Item Value Reference Range Interpretation Comments BUN (test code = BUN) 12 7-22 [facility]2015-01-23 07:51:00 Test Item Value Reference Range Interpretation Comments Creatinine Lvl (test code = Creatinine 0.8 0.5-1.4 Lvl) [facility]2015-01-23 07:51:00 Test Item Value Reference Range Interpretation Comments AGAP (test code = AGAP) 11.9 10.0-20.0 [facility]2015-01-23 07:51:00 Test Item Value Reference Range Interpretation Comments B/C Ratio (test code = B/C Ratio) 15 6-25 [facility]2015-01-23 07:51:00 Test Item Value Reference Range Interpretation Comments Globulin (test code = Globulin) 3.9 2.0-4.0 [facility]2015-01-23 07:51:00 Test Item Value Reference Range Interpretation Comments A/G Ratio (test code = A/G Ratio) 0.9 0.7-1.6 [facility]axVLQUYLXIMMCKJ2888-18-83 07:51:00 Test Item Value Reference Range Interpretation Comments hCG Tot (test code = hCG Tot) no gt [facility]NcicdfxCQWAQVGBFB3379-02-05 07:51:00 Test Item Value Reference Range Interpretation Comments MCHC (test code = MCHC) 33.8 32.0-36.0 [facility] CenterHwfnwitQNYENDPZKX8922-88-93 07:51:00 Test Item Value Reference Range Interpretation Comments MCH (test code = MCH) 30.3 pg 27.0-31.0 [facility] CenterXdoljhxUTJDNZMTWW5675-26-65 07:51:00 Test Item Value Reference Range Interpretation Comments RDW (test code = RDW) 13.0 11.5-14.5 [facility] CenterUpishzzYZACNGRTLD1712-76-57 07:51:00 Test Item Value Reference Range Interpretation Comments MPV (test code = MPV) 8.4 7.4-10.4 [facility] CenterGnmamsoHDHLHGRWUY6533-16-25 07:51:00 Test Item Value Reference Range Interpretation Comments Platelet (test code = Platelet) 356 133-450 [facility] CenterGxgcgnkMHFNGRJGMF1065-67-85 07:51:00 Test Item Value Reference Range Interpretation Comments RBC (test code = RBC) 4.45 4.20-5.40 [facility] CenterJjxtqefMONIOMUNCX1769-54-97 07:51:00 Test Item Value Reference Range Interpretation Comments WBC (test code = WBC) 12.9 3.7-10.4 [facility] CenterIuunbnnCHDSYOIBAY0872-49-28 07:51:00 Test Item Value Reference Range Interpretation Comments Hgb (test code = Hgb) 13.5 12.0-16.0 [facility] CenterCpdjzleHYJLJXLIPE8481-78-77 07:51:00 Test Item Value Reference Range Interpretation Comments MCV (test code = MCV) 89.7 80.0-98.0 [facility] CenterBdkgnhsEWIQDOBLZV7719-26-63 07:51:00 Test Item Value Reference Range Interpretation Comments Hct (test code = Hct) 39.9 36.0-48.0 [facility] CenterTiselyqEUQJURPTSA6243-31-07 07:51:00 Test Item Value Reference Range Interpretation Comments Eosinophils # (test code 0.3 See_Comment [A utomated message] The = Eosinophils #) system ic h generated this result tra nsmitted reference range : <=0.5. The reference r ozzy was not used to int erpret this result as normal/abnormal . [facility] CenterPhhxvvsZFPHSUMEVM1794-81-80 07:51:00 Test Item Value Reference Range Interpretation Comments Lymphocytes # (test code = Lymphocytes 3.6 1.0-5.5 #) [facility] CenterCqvhfvxOQQGPGTOBW9408-21-64 07:51:00 Test Item Value Reference Range Interpretation Comments Monocytes # (test code 0.7 See_Comment [Aut omated message] The = Monocytes #) system which generated this result tra nsmitted reference range : <=0.8. The reference r ozzy was not used to int erpret this result as normal/abnormal . [facility] CenterWpipkjmBUIIJULRWZ0851-08-94 07:51:00 Test Item Value Reference Range Interpretation Comments Segs (test code = Segs) 63.9 45.0-75.0 [facility] CenterPwovctpYESRONUWNU2266-71-58 07:51:00 Test Item Value Reference Range Interpretation Comments Segs-Bands # (test code = Segs-Bands #) 8.2 1.5-8.1 [facility] CenterBehhwjtUJZFUWYALZ3313-27-29 07:51:00 Test Item Value Reference Range Interpretation Comments Basophils (test code = 0.7 See_Comment [Aut omated message] The Basophils) system which ge nerated this result tra nsmitted reference range : <=1.0. The reference r ozzy was not used to int erpret this result as normal/abnormal . [facility] CenterYubhthfHXNVKJAEMR4190-94-27 07:51:00 Test Item Value Reference Range Interpretation Comments Monocytes (test code = Monocytes) 5.4 2.0-12.0 [facility] CenterRbvhtsrITQZQSKOGP1457-67-83 07:51:00 Test Item Value Reference Range Interpretation Comments Eosinophils (test code = 2.3 See_Comment [A utomated message] The Eosinophils) system which ge nerated this result tra nsmitted reference range : <=4.0. The reference r ozzy was not used to int erpret this result as normal/abnormal . [facility] CenterFcfpazkQAJQMJHVFX7600-95-95 07:51:00 Test Item Value Reference Range Interpretation Comments Lymphocytes (test code = Lymphocytes) 27.7 20.0-40.0 [facility] CenterKmyftrvBZVZCMWNXR6056-03-96 07:51:00 Test Item Value Reference Range Interpretation Comments Basophils # (test code 0.1 See_Comment [Aut omated message] The = Basophils #) system which generated this result tra nsmitted reference range : <=0.2. The reference r ozzy was not used to int erpret this result as normal/abnormal . [facility]2015-01-23 07:51:00 Test Item Value Reference Range Interpretation Comments UA Urobilinogen (test code = UA 1.0 0.1-1.0 Urobilinogen) [facility]2015-01-23 07:51:00 Test Item Value Reference Range Interpretation Comments UA Turbidity (test code Cloudy *ABN*(09/04/14 = UA Turbidity) 1:51 AM) [facility]2015-01-23 07:51:00 Test Item Value Reference Range Interpretation Comments UA Color (test code = Red *ABN*(09/04/14 1:51 UA Color) AM) [facility]2015-01-23 07:51:00 Test Item Value Reference Range Interpretation Comments UA Ketones (test code Negative *NA*(09/04/14 = UA Ketones) 1:51 AM) [facility] AND [id number] 07:51:00 Test Item Value Reference Range Interpretation Comments UA Glucose (test code Negative (09/04/14 1:51 = UA Glucose) AM) [facility] AND [id number] 07:51:00 Test Item Value Reference Range Interpretation Comments UA Protein (test code = Trace *ABN*(09/04/14 UA Protein) 1:51 AM) [facility] AND [id number] 07:51:00 Test Item Value Reference Range Interpretation Comments UA pH (test code = UA pH) 8.0 1 5.0-8.0 [facility] AND [id number] 07:51:00 Test Item Value Reference Range Interpretation Comments UA Spec Grav (test code = UA Spec 1.015 1 Grav) [facility] AND [id number] 07:51:00 Test Item Value Reference Range Interpretation Comments UA Bili (test code = Negative *NA*(09/04/14 UA Bili) 1:51 AM) [facility] AND [id number] 07:51:00 Test Item Value Reference Range Interpretation Comments UA Blood (test code = Large *ABN*(09/04/14 UA Blood) 1:51 AM) [facility] AND [id number] 07:51:00 Test Item Value Reference Range Interpretation Comments UA Leuk Est (test Negative (09/04/14 1:51 code = UA Leuk Est) AM) [facility] AND [id number] 07:51:00 Test Item Value Reference Range Interpretation Comments UA Nitrite (test code Negative (09/04/14 1:51 = UA Nitrite) AM) [facility] AND [id number] 07:51:00 Test Item Value Reference Range Interpretation Comments UA Amorph Joselin (test code = UA Few /HPF Amorph Joselin) [facility] AND [id number] 07:51:00 Test Item Value Reference Range Interpretation Comments UA RBC (test code 51-100 /HPF See_Comment [Automate d message] The = UA RBC) system which ge nerated this result tra nsmitted reference range : <=2. The reference r ozzy was not used to int erpret this result as normal/abnormal . [facility] AND [id number] 07:51:00 Test Item Value Reference Range Interpretation Comments UA WBC (test code = UA WBC) 6-10 /HPF [facility] AND [id number] 07:51:00 Test Item Value Reference Range Interpretation Comments UA Bacteria (test code = UA Few /HPF Bacteria) [facility] AND [id number] 07:51:00 Test Item Value Reference Range Interpretation Comments UA Sq Epi (test code = UA Sq Occasional /LPF Epi) [facility] [employer] [id number] 07:51:00 Test Item Value Reference Range Interpretation Comments ABO/Rh (test code = ABO/Rh) A POS [facility] [employer] [id number] 07:51:00 Test Item Value Reference Range Interpretation Comments Antibody Scrn (test Negative (09/04/14 1:51 code = Antibody Scrn) AM) [facility] [place] [id number] 07:51:00 Test Item Value Reference Range Interpretation Comments Albumin Lvl (test code = Albumin Lvl) 3.4 3.5-5.0 [facility] [place] [id number] 07:51:00 Test Item Value Reference Range Interpretation Comments Alk Phos (test code = Alk Phos) 64 39-136 [facility] [place] [id number] 07:51:00 Test Item Value Reference Range Interpretation Comments ALT (test code = ALT) 18 See_Comment [Auto mated message] The system which ge nerated this result transmit gaye reference range : <=65. The reference range was not used to interpr et this result as satish l/abnormal. [facility] [place] [id number] 07:51:00 Test Item Value Reference Range Interpretation Comments AST (test code = AST) 12 See_Comment [Auto mated message] The system which ge nerated this result transmit gaye reference range : <=37. The reference range was not used to interpr et this result as satish l/abnormal. [facility] [place] [id number] 07:51:00 Test Item Value Reference Range Interpretation Comments eGFR (test code = eGFR) 93 [facility] [place] [id number] 07:51:00 Test Item Value Reference Range Interpretation Comments Bili Total (test code = Bili Total) 0.3 0.2-1.3 [facility]2015-01-23 07:51:00 Test Item Value Reference Range Interpretation Comments Chloride Lvl (test code = Chloride Lvl) 108 95-109 [facility]2015-01-23 07:51:00 Test Item Value Reference Range Interpretation Comments Sodium Lvl (test code = Sodium Lvl) 138 135-145 [facility]2015-01-23 07:51:00 Test Item Value Reference Range Interpretation Comments Potassium Lvl (test code = Potassium 3.9 3.5-5.1 Lvl) [facility]2015-01-23 07:51:00 Test Item Value Reference Range Interpretation Comments CO2 (test code = CO2) 22 -32 [facility]2015-01-23 07:51:00 Test Item Value Reference Range Interpretation Comments Calcium Lvl (test code = Calcium Lvl) 8.8 8.5-10.5 [facility]2015-01-23 07:51:00 Test Item Value Reference Range Interpretation Comments Glucose Lvl (test code = Glucose Lvl) 98 70-99 [facility]2015-01-23 07:51:00 Test Item Value Reference Range Interpretation Comments Total Protein (test code = Total 7.3 6.4-8.4 Protein) [facility]2015-01-23 07:51:00 Test Item Value Reference Range Interpretation Comments BUN (test code = BUN) 12 - [facility]2015-01-23 07:51:00 Test Item Value Reference Range Interpretation Comments Creatinine Lvl (test code = Creatinine 0.8 0.5-1.4 Lvl) [facility]2015-01-23 07:51:00 Test Item Value Reference Range Interpretation Comments AGAP (test code = AGAP) 11.9 10.0-20.0 [facility]2015-01-23 07:51:00 Test Item Value Reference Range Interpretation Comments B/C Ratio (test code = B/C Ratio) 15 6-25 [facility]2015-01-23 07:51:00 Test Item Value Reference Range Interpretation Comments Globulin (test code = Globulin) 3.9 2.0-4.0 [facility]2015-01-23 07:51:00 Test Item Value Reference Range Interpretation Comments A/G Ratio (test code = A/G Ratio) 0.9 0.7-[address] [id number] 07:51:00 Test Item Value Reference Range Interpretation Comments hCG Tot (test code = hCG Tot) no gt [facility]bNOZAOADHQQ1890-59-77 07:51:00 Test Item Value Reference Range Interpretation Comments MCHC (test code = MCHC) 33.8 32.0-36.0 [facility]BzxvkzvHUKABFWHKW8778-04-04 07:51:00 Test Item Value Reference Range Interpretation Comments MCH (test code = MCH) 30.3 pg 27.0-31.0 [id number] 07:51:00 Test Item Value Reference Range Interpretation Comments RDW (test code = RDW) 13.0 11.5-14.5 [facility] CenterWynnqunODTJONSLON8521-40-80 07:51:00 Test Item Value Reference Range Interpretation Comments MPV (test code = MPV) 8.4 7.4-10.4 [facility]XkpiyouDXZNLZYOAD7263-92-64 07:51:00 Test Item Value Reference Range Interpretation Comments Platelet (test code = Platelet) 356 133-450 [facility]Y[id number] 07:51:00 Test Item Value Reference Range Interpretation Comments RBC (test code = RBC) 4.45 4.20-5.40 [facility] CenterMyjlnctHBJEMSYDCP5492-80-40 07:51:00 Test Item Value Reference Range Interpretation Comments WBC (test code = WBC) 12.9 3.7-10.4 [facility] CenterSfxlcnnLNMXMBHRIS8421-10-73 07:51:00 Test Item Value Reference Range Interpretation Comments Hgb (test code = Hgb) 13.5 12.0-16.0 [facility] CenterCfduzlrHGCZVRNEKC6889-45-25 07:51:00 Test Item Value Reference Range Interpretation Comments MCV (test code = MCV) 89.7 80.0-98.0 [facility] CenterNjokvfpCESVFWKWCW6621-91-02 07:51:00 Test Item Value Reference Range Interpretation Comments Hct (test code = Hct) 39.9 36.0-48.0 [facility] CenterVzdzgspUNZWFPOBPA4250-66-33 07:51:00 Test Item Value Reference Range Interpretation Comments Eosinophils # (test code 0.3 See_Comment [A utomated message] The = Eosinophils #) system ic h generated this result tra nsmitted reference range : <=0.5. The reference r ozzy was not used to int erpret this result as normal/abnormal . [facility] CenterAmiooxbAEBLSRKXEE7362-78-33 07:51:00 Test Item Value Reference Range Interpretation Comments Lymphocytes # (test code = Lymphocytes 3.6 1.0-5.5 #) [facility] CenterHajxkwyYGTHRYWMVE9900-78-35 07:51:00 Test Item Value Reference Range Interpretation Comments Monocytes # (test code 0.7 See_Comment [Aut omated message] The = Monocytes #) system which generated this result tra nsmitted reference range : <=0.8. The reference r ozzy was not used to int erpret this result as normal/abnormal . [facility] CenterOgkibipDWGGCIAATV4333-15-43 07:51:00 Test Item Value Reference Range Interpretation Comments Segs (test code = Segs) 63.9 45.0-75.0 [facility] CenterExhkuorBWJMAQLPQO5629-39-44 07:51:00 Test Item Value Reference Range Interpretation Comments Segs-Bands # (test code = Segs-Bands #) 8.2 1.5-8.1 [facility] CenterYswyftgFURLKCMTJQ3230-68-98 07:51:00 Test Item Value Reference Range Interpretation Comments Basophils (test code = 0.7 See_Comment [Aut omated message] The Basophils) system which ge nerated this result tra nsmitted reference range : <=1.0. The reference r ozzy was not used to int erpret this result as normal/abnormal . [facility] [id number] 07:51:00 Test Item Value Reference Range Interpretation Comments Monocytes (test code = Monocytes) 5.4 2.0-12.0 [facility] CenterVzosilhKYHOBIWKOB8249-72-72 07:51:00 Test Item Value Reference Range Interpretation Comments Eosinophils (test code = 2.3 See_Comment [A utomated message] The Eosinophils) system which ge nerated this result tra nsmitted reference range : <=4.0. The reference r ozzy was not used to int erpret this result as normal/abnormal . [facility] CenterRpfeuvhIEKLLRZRTM1283-12-48 07:51:00 Test Item Value Reference Range Interpretation Comments Lymphocytes (test code = Lymphocytes) 27.7 20.0-40.0 [facility] HospitalFnqcxzoGUASSZWNLL0957-48-44 07:51:00 Test Item Value Reference Range Interpretation Comments Basophils # (test code 0.1 See_Comment [Aut omated message] The = Basophils #) system which generated this result tra nsmitted reference range : <=0.2. The reference r ozzy was not used to int erpret this result as normal/abnormal . [facility] AND [id number] 07:51:00 Test Item Value Reference Range Interpretation Comments UA Urobilinogen (test code = UA 1.0 0.1-1.0 Urobilinogen) [facility] AND [id number] 07:51:00 Test Item Value Reference Range Interpretation Comments UA Turbidity (test code Cloudy *ABN*(09/04/14 = UA Turbidity) 1:51 AM) [facility] AND [id number] 07:51:00 Test Item Value Reference Range Interpretation Comments UA Color (test code = Red *ABN*(09/04/14 1:51 UA Color) AM) [facility] AND [id number] 07:51:00 Test Item Value Reference Range Interpretation Comments UA Ketones (test code Negative *NA*(09/04/14 = UA Ketones) 1:51 AM) [facility] AND [id number] 07:51:00 Test Item Value Reference Range Interpretation Comments UA Glucose (test code Negative (09/04/14 1:51 = UA Glucose) AM) [facility] AND [id number] 07:51:00 Test Item Value Reference Range Interpretation Comments UA Protein (test code = Trace *ABN*(09/04/14 UA Protein) 1:51 AM) [facility] AND [id number] 07:51:00 Test Item Value Reference Range Interpretation Comments UA pH (test code = UA pH) 8.0 1 5.0-8.0 [facility] AND [id number] 07:51:00 Test Item Value Reference Range Interpretation Comments UA Spec Grav (test code = UA Spec 1.015 1 Grav) [facility] AND [id number] 07:51:00 Test Item Value Reference Range Interpretation Comments UA Bili (test code = Negative *NA*(09/04/14 UA Bili) 1:51 AM) [facility] AND [id number] 07:51:00 Test Item Value Reference Range Interpretation Comments UA Blood (test code = Large *ABN*(09/04/14 UA Blood) 1:51 AM) [facility] AND [id number] 07:51:00 Test Item Value Reference Range Interpretation Comments UA Leuk Est (test Negative (09/04/14 1:51 code = UA Leuk Est) AM) [facility] AND [id number] 07:51:00 Test Item Value Reference Range Interpretation Comments UA Nitrite (test code Negative (09/04/14 1:51 = UA Nitrite) AM) [facility] AND [id number] 07:51:00 Test Item Value Reference Range Interpretation Comments UA Amorph Joselin (test code = UA Few /HPF Amorph Joselin) [facility] AND [id number] 07:51:00 Test Item Value Reference Range Interpretation Comments UA RBC (test code 51-100 /HPF See_Comment [Automate d message] The = UA RBC) system which ge nerated this result tra nsmitted reference range : <=2. The reference r ozzy was not used to int erpret this result as normal/abnormal . [facility] AND [id number] 07:51:00 Test Item Value Reference Range Interpretation Comments UA WBC (test code = UA WBC) 6-10 /HPF [facility] AND [id number] 07:51:00 Test Item Value Reference Range Interpretation Comments UA Bacteria (test code = UA Few /HPF Bacteria) [facility] AND [id number] 07:51:00 Test Item Value Reference Range Interpretation Comments UA Sq Epi (test code = UA Sq Occasional /LPF Epi) [facility] [employer] [id number] 07:51:00 Test Item Value Reference Range Interpretation Comments ABO/Rh (test code = ABO/Rh) A POS [facility] [employer] [id number] 07:51:00 Test Item Value Reference Range Interpretation Comments Antibody Scrn (test Negative (09/04/14 1:51 code = Antibody Scrn) AM) [facility] D[place] HallannCHEM [id number] 07:51:00 Test Item Value Reference Range Interpretation Comments Albumin Lvl (test code = Albumin Lvl) 3.4 3.5-5.0 [facility]2015-01-23 07:51:00 Test Item Value Reference Range Interpretation Comments Alk Phos (test code = Alk Phos) 64 39-136 [facility]2015-01-23 07:51:00 Test Item Value Reference Range Interpretation Comments ALT (test code = ALT) 18 See_Comment [Auto mated message] The system which ge nerated this result transmit gaye reference range : <=65. The reference range was not used to interpr et this result as satish l/abnormal. [facility]2015-01-23 07:51:00 Test Item Value Reference Range Interpretation Comments AST (test code = AST) 12 See_Comment [Auto mated message] The system which ge nerated this result transmit gaye reference range : <=37. The reference range was not used to interpr et this result as satish l/abnormal. [place] [id number] 07:51:00 Test Item Value Reference Range Interpretation Comments eGFR (test code = eGFR) 93 [facility]2015-01-23 07:51:00 Test Item Value Reference Range Interpretation Comments Bili Total (test code = Bili Total) 0.3 0.2-1.3 [facility]2015-01-23 07:51:00 Test Item Value Reference Range Interpretation Comments Chloride Lvl (test code = Chloride Lvl) 108 95-109 [facility]2015-01-23 07:51:00 Test Item Value Reference Range Interpretation Comments Sodium Lvl (test code = Sodium Lvl) 138 135-145 [facility]2015-01-23 07:51:00 Test Item Value Reference Range Interpretation Comments Potassium Lvl (test code = Potassium 3.9 3.5-5.1 Lvl) [facility]2015-01-23 07:51:00 Test Item Value Reference Range Interpretation Comments CO2 (test code = CO2) 22 24-32 [facility]2015-01-23 07:51:00 Test Item Value Reference Range Interpretation Comments Calcium Lvl (test code = Calcium Lvl) 8.8 8.5-10.5 [facility]2015-01-23 07:51:00 Test Item Value Reference Range Interpretation Comments Glucose Lvl (test code = Glucose Lvl) 98 70-99 [facility]2015-01-23 07:51:00 Test Item Value Reference Range Interpretation Comments Total Protein (test code = Total 7.3 6.4-8.4 Protein) [facility]2015-01-23 07:51:00 Test Item Value Reference Range Interpretation Comments BUN (test code = BUN) 12 7-22 [facility]2015-01-23 07:51:00 Test Item Value Reference Range Interpretation Comments Creatinine Lvl (test code = Creatinine 0.8 0.5-1.4 Lvl) [facility]2015-01-23 07:51:00 Test Item Value Reference Range Interpretation Comments AGAP (test code = AGAP) 11.9 10.0-20.0 [facility]2015-01-23 07:51:00 Test Item Value Reference Range Interpretation Comments B/C Ratio (test code = B/C Ratio) 15 6-25 [facility]2015-01-23 07:51:00 Test Item Value Reference Range Interpretation Comments Globulin (test code = Globulin) 3.9 2.0-4.0 [facility]2015-01-23 07:51:00 Test Item Value Reference Range Interpretation Comments A/G Ratio (test code = A/G Ratio) 0.9 0.7-1.6 [place] [id number] 07:51:00 Test Item Value Reference Range Interpretation Comments hCG Tot (test code = hCG Tot) no gt [id number] 07:51:00 Test Item Value Reference Range Interpretation Comments MCHC (test code = MCHC) 33.8 32.0-36.0 [facility] C[id number] 07:51:00 Test Item Value Reference Range Interpretation Comments MCH (test code = MCH) 30.3 pg 27.0-31.0 [facility] CenterVffddsqGFXNQYCDNU3728-10-65 07:51:00 Test Item Value Reference Range Interpretation Comments RDW (test code = RDW) 13.0 11.5-14.5 [facility] CenterXbawqliFYMBIIJBFJ1157-14-74 07:51:00 Test Item Value Reference Range Interpretation Comments MPV (test code = MPV) 8.4 7.4-10.4 [facility] CenterAesntzkAGEOCWXASR5727-34-15 07:51:00 Test Item Value Reference Range Interpretation Comments Platelet (test code = Platelet) 356 133-450 [facility] CenterRbuvmhrINKZHWFYLM1715-23-86 07:51:00 Test Item Value Reference Range Interpretation Comments RBC (test code = RBC) 4.45 4.20-5.40 [facility] CenterHiybskaKVAQBMEHBQ9885-15-46 07:51:00 Test Item Value Reference Range Interpretation Comments WBC (test code = WBC) 12.9 3.7-10.4 [facility] CenterOyjsdijWKGHUPGXDQ3876-30-69 07:51:00 Test Item Value Reference Range Interpretation Comments Hgb (test code = Hgb) 13.5 12.0-16.0 [facility] CenterXktltqrIAERRZZPLV8159-47-68 07:51:00 Test Item Value Reference Range Interpretation Comments MCV (test code = MCV) 89.7 80.0-98.0 [facility] CenterWxygqxjJNLOUDBWAQ9685-64-75 07:51:00 Test Item Value Reference Range Interpretation Comments Hct (test code = Hct) 39.9 36.0-48.0 [facility] CenterVqxtekmIINEAELZTG4472-33-58 07:51:00 Test Item Value Reference Range Interpretation Comments Eosinophils # (test code 0.3 See_Comment [A utomated message] The = Eosinophils #) system whic h generated this result tra nsmitted reference range : <=0.5. The reference r ozzy was not used to int erpret this result as normal/abnormal . [facility] CenterSspdnmwDOJQPGHRUI7854-72-66 07:51:00 Test Item Value Reference Range Interpretation Comments Lymphocytes # (test code = Lymphocytes 3.6 1.0-5.5 #) [facility] CenterOlieoadTQGZLTZVFC0751-25-63 07:51:00 Test Item Value Reference Range Interpretation Comments Monocytes # (test code 0.7 See_Comment [Aut omated message] The = Monocytes #) system which generated this result tra nsmitted reference range : <=0.8. The reference r ozzy was not used to int erpret this result as normal/abnormal . [facility] CenterXrtnqkeZLPNJMLMIK6696-17-11 07:51:00 Test Item Value Reference Range Interpretation Comments Segs (test code = Segs) 63.9 45.0-75.0 [facility] CenterGmmefgtDFZKZKVMEZ8456-50-13 07:51:00 Test Item Value Reference Range Interpretation Comments Segs-Bands # (test code = Segs-Bands #) 8.2 1.5-8.1 [facility] Cent[id number] 07:51:00 Test Item Value Reference Range Interpretation Comments Basophils (test code = 0.7 See_Comment [Aut omated message] The Basophils) system which ge nerated this result tra nsmitted reference range : <=1.0. The reference r ozzy was not used to int erpret this result as normal/abnormal . [facility] CenterGwadoefXTCDFGUXRP4972-83-19 07:51:00 Test Item Value Reference Range Interpretation Comments Monocytes (test code = Monocytes) 5.4 2.0-12.0 [facility] C[id number] 07:51:00 Test Item Value Reference Range Interpretation Comments Eosinophils (test code = 2.3 See_Comment [A utomated message] The Eosinophils) system which ge nerated this result tra nsmitted reference range : <=4.0. The reference r ozzy was not used to int erpret this result as normal/abnormal . [facility] CenterPyifeovVCPVQBBNLG8901-79-51 07:51:00 Test Item Value Reference Range Interpretation Comments Lymphocytes (test code = Lymphocytes) 27.7 20.0-40.0 [facility] [id number] 07:51:00 Test Item Value Reference Range Interpretation Comments Basophils # (test code 0.1 See_Comment [Aut omated message] The = Basophils #) system which generated this result tra nsmitted reference range : <=0.2. The reference r ozzy was not used to int erpret this result as normal/abnormal . [facility]2015-01-23 07:51:00 Test Item Value Reference Range Interpretation Comments UA Urobilinogen (test code = UA 1.0 0.1-1.0 Urobilinogen) [facility]2015-01-23 07:51:00 Test Item Value Reference Range Interpretation Comments UA Turbidity (test code Cloudy *ABN*(09/04/14 = UA Turbidity) 1:51 AM) [facility]2015-01-23 07:51:00 Test Item Value Reference Range Interpretation Comments UA Color (test code = Red *ABN*(09/04/14 1:51 UA Color) AM) [facility] AND [id number] 07:51:00 Test Item Value Reference Range Interpretation Comments UA Ketones (test code Negative *NA*(09/04/14 = UA Ketones) 1:51 AM) [facility] AND [id number] 07:51:00 Test Item Value Reference Range Interpretation Comments UA Glucose (test code Negative (09/04/14 1:51 = UA Glucose) AM) [facility] AND [id number] 07:51:00 Test Item Value Reference Range Interpretation Comments UA Protein (test code = Trace *ABN*(09/04/14 UA Protein) 1:51 AM) [facility] AND [id number] 07:51:00 Test Item Value Reference Range Interpretation Comments UA pH (test code = UA pH) 8.0 1 5.0-8.0 [facility] AND [id number] 07:51:00 Test Item Value Reference Range Interpretation Comments UA Spec Grav (test code = UA Spec 1.015 1 Grav) [facility] AND [id number] 07:51:00 Test Item Value Reference Range Interpretation Comments UA Bili (test code = Negative *NA*(09/04/14 UA Bili) 1:51 AM) [facility] AND [id number] 07:51:00 Test Item Value Reference Range Interpretation Comments UA Blood (test code = Large *ABN*(09/04/14 UA Blood) 1:51 AM) [facility] AND [id number] 07:51:00 Test Item Value Reference Range Interpretation Comments UA Leuk Est (test Negative (09/04/14 1:51 code = UA Leuk Est) AM) [facility] AND [id number] 07:51:00 Test Item Value Reference Range Interpretation Comments UA Nitrite (test code Negative (09/04/14 1:51 = UA Nitrite) AM) [facility] AND [id number] 07:51:00 Test Item Value Reference Range Interpretation Comments UA Amorph Joselin (test code = UA Few /HPF Amorph Joselin) [facility] AND [id number] 07:51:00 Test Item Value Reference Range Interpretation Comments UA RBC (test code 51-100 /HPF See_Comment [Automate d message] The = UA RBC) system which ge nerated this result tra nsmitted reference range : <=2. The reference r ozzy was not used to int erpret this result as normal/abnormal . [facility] AND [id number] 07:51:00 Test Item Value Reference Range Interpretation Comments UA WBC (test code = UA WBC) 6-10 /HPF [facility] AND [id number] 07:51:00 Test Item Value Reference Range Interpretation Comments UA Bacteria (test code = UA Few /HPF Bacteria) [facility] AND [id number] 07:51:00 Test Item Value Reference Range Interpretation Comments UA Sq Epi (test code = UA Sq Occasional /LPF Epi) [facility] [employer] [id number] 07:51:00 Test Item Value Reference Range Interpretation Comments ABO/Rh (test code = ABO/Rh) A POS [facility] [employer] [id number] 07:51:00 Test Item Value Reference Range Interpretation Comments Antibody Scrn (test Negative (09/04/14 1:51 code = Antibody Scrn) AM) [facility] [place] [id number] 07:51:00 Test Item Value Reference Range Interpretation Comments Albumin Lvl (test code = Albumin Lvl) 3.4 3.5-5.0 [facility] [place] [id number] 07:51:00 Test Item Value Reference Range Interpretation Comments Alk Phos (test code = Alk Phos) 64 39-136 [facility] [place] [id number] 07:51:00 Test Item Value Reference Range Interpretation Comments ALT (test code = ALT) 18 See_Comment [Auto mated message] The system which ge nerated this result transmit gaye reference range : <=65. The reference range was not used to interpr et this result as satish l/abnormal. [facility] [place] [id number] 07:51:00 Test Item Value Reference Range Interpretation Comments AST (test code = AST) 12 See_Comment [Auto mated message] The system which ge nerated this result transmit gaye reference range : <=37. The reference range was not used to interpr et this result as satish l/abnormal. [employer] [id number] 07:51:00 Test Item Value Reference Range Interpretation Comments eGFR (test code = eGFR) 93 [facility]2015-01-23 07:51:00 Test Item Value Reference Range Interpretation Comments Bili Total (test code = Bili Total) 0.3 0.2-1.3 [facility]2015-01-23 07:51:00 Test Item Value Reference Range Interpretation Comments Chloride Lvl (test code = Chloride Lvl) 108 95-109 [facility]2015-01-23 07:51:00 Test Item Value Reference Range Interpretation Comments Sodium Lvl (test code = Sodium Lvl) 138 135-145 [facility]2015-01-23 07:51:00 Test Item Value Reference Range Interpretation Comments Potassium Lvl (test code = Potassium 3.9 3.5-5.1 Lvl) [facility]2015-01-23 07:51:00 Test Item Value Reference Range Interpretation Comments CO2 (test code = CO2) 22 24-32 [facility]2015-01-23 07:51:00 Test Item Value Reference Range Interpretation Comments Calcium Lvl (test code = Calcium Lvl) 8.8 8.5-10.5 [facility]2015-01-23 07:51:00 Test Item Value Reference Range Interpretation Comments Glucose Lvl (test code = Glucose Lvl) 98 70-99 [facility]2015-01-23 07:51:00 Test Item Value Reference Range Interpretation Comments Total Protein (test code = Total 7.3 6.4-8.4 Protein) [facility]2015-01-23 07:51:00 Test Item Value Reference Range Interpretation Comments BUN (test code = BUN) 12 - [facility]2015-01-23 07:51:00 Test Item Value Reference Range Interpretation Comments Creatinine Lvl (test code = Creatinine 0.8 0.5-1.4 Lvl) [facility]2015-01-23 07:51:00 Test Item Value Reference Range Interpretation Comments AGAP (test code = AGAP) 11.9 10.0-20.0 [facility]2015-01-23 07:51:00 Test Item Value Reference Range Interpretation Comments B/C Ratio (test code = B/C Ratio) 15 6-25 [facility]2015-01-23 07:51:00 Test Item Value Reference Range Interpretation Comments Globulin (test code = Globulin) 3.9 2.0-4.0 [facility] [id number] 07:51:00 Test Item Value Reference Range Interpretation Comments A/G Ratio (test code = A/G Ratio) 0.9 0.7-1.6 [id number] 07:51:00 Test Item Value Reference Range Interpretation Comments hCG Tot (test code = hCG Tot) no gt [facility]oricmqUZVAPWDREB4190-72-97 07:51:00 Test Item Value Reference Range Interpretation Comments MCHC (test code = MCHC) 33.8 32.0-36.0 [facility]DyxskvuKWOESDCYJH5425-32-00 07:51:00 Test Item Value Reference Range Interpretation Comments MCH (test code = MCH) 30.3 pg 27.0-31.0 [facility] Cent[id number] 07:51:00 Test Item Value Reference Range Interpretation Comments RDW (test code = RDW) 13.0 11.5-14.5 [facility] [id number] 07:51:00 Test Item Value Reference Range Interpretation Comments MPV (test code = MPV) 8.4 7.4-10.4 [facility] Cent[id number] 07:51:00 Test Item Value Reference Range Interpretation Comments Platelet (test code = Platelet) 356 133-450 [facility] CenterNmaupzlSCLHIOSMIE4240-08-83 07:51:00 Test Item Value Reference Range Interpretation Comments RBC (test code = RBC) 4.45 4.20-5.40 [facility] CenterAbuhoyxHGRHKPJVSN7675-62-62 07:51:00 Test Item Value Reference Range Interpretation Comments WBC (test code = WBC) 12.9 3.7-10.4 [facility] CenterAfsefkgQSPGTGUTEK3609-97-11 07:51:00 Test Item Value Reference Range Interpretation Comments Hgb (test code = Hgb) 13.5 12.0-16.0 [facility] CenterYoujpaaAXCTBPATUF8186-55-72 07:51:00 Test Item Value Reference Range Interpretation Comments MCV (test code = MCV) 89.7 80.0-98.0 [facility] CenterWsdtqquLUXMDTPIHY0425-85-45 07:51:00 Test Item Value Reference Range Interpretation Comments Hct (test code = Hct) 39.9 36.0-48.0 [facility] CenterNnivyzwIXFHCYVMBE7114-93-04 07:51:00 Test Item Value Reference Range Interpretation Comments Eosinophils # (test code 0.3 See_Comment [A utomated message] The = Eosinophils #) system whic h generated this result tra nsmitted reference range : <=0.5. The reference r ozzy was not used to int erpret this result as normal/abnormal . [facility] CenterBhjzcbwKFFOLOAEJX7380-41-45 07:51:00 Test Item Value Reference Range Interpretation Comments Lymphocytes # (test code = Lymphocytes 3.6 1.0-5.5 #) [facility] CenterInowuxmVEILBACYEK7249-06-25 07:51:00 Test Item Value Reference Range Interpretation Comments Monocytes # (test code 0.7 See_Comment [Aut omated message] The = Monocytes #) system which generated this result tra nsmitted reference range : <=0.8. The reference r ozzy was not used to int erpret this result as normal/abnormal . [facility] CenterEgorogqGMMHHGGLAU0618-44-80 07:51:00 Test Item Value Reference Range Interpretation Comments Segs (test code = Segs) 63.9 45.0-75.0 [facility] CenterImagvupDAOHIOMBTR1189-54-47 07:51:00 Test Item Value Reference Range Interpretation Comments Segs-Bands # (test code = Segs-Bands #) 8.2 1.5-8.1 [facility] CenterBiycxvzRRJPUYPAWG8742-13-87 07:51:00 Test Item Value Reference Range Interpretation Comments Basophils (test code = 0.7 See_Comment [Aut omated message] The Basophils) system which ge nerated this result tra nsmitted reference range : <=1.0. The reference r ozzy was not used to int erpret this result as normal/abnormal . [facility] CenterAhmlpvcENGKONFFPY6462-50-23 07:51:00 Test Item Value Reference Range Interpretation Comments Monocytes (test code = Monocytes) 5.4 2.0-12.0 [facility] CenterFloazywPSZPRERTIA8789-78-69 07:51:00 Test Item Value Reference Range Interpretation Comments Eosinophils (test code = 2.3 See_Comment [A utomated message] The Eosinophils) system which ge nerated this result tra nsmitted reference range : <=4.0. The reference r ozzy was not used to int erpret this result as normal/abnormal . [facility] CenterVlsfkuhONJRJCDROV4262-26-48 07:51:00 Test Item Value Reference Range Interpretation Comments Lymphocytes (test code = Lymphocytes) 27.7 20.0-40.0 [facility] CenterYmcncjkOZHWTZGAAE9370-79-16 07:51:00 Test Item Value Reference Range Interpretation Comments Basophils # (test code 0.1 See_Comment [Aut omated message] The = Basophils #) system which generated this result tra nsmitted reference range : <=0.2. The reference r ozzy was not used to int erpret this result as normal/abnormal . [facility] AND [id number] 07:51:00 Test Item Value Reference Range Interpretation Comments UA Urobilinogen (test code = UA 1.0 0.1-1.0 Urobilinogen) [facility] AND [id number] 07:51:00 Test Item Value Reference Range Interpretation Comments UA Turbidity (test code Cloudy *ABN*(09/04/14 = UA Turbidity) 1:51 AM) [facility] AND [id number] 07:51:00 Test Item Value Reference Range Interpretation Comments UA Color (test code = Red *ABN*(09/04/14 1:51 UA Color) AM) [facility] AND [id number] 07:51:00 Test Item Value Reference Range Interpretation Comments UA Ketones (test code Negative *NA*(09/04/14 = UA Ketones) 1:51 AM) [facility] AND [id number] 07:51:00 Test Item Value Reference Range Interpretation Comments UA Glucose (test code Negative (09/04/14 1:51 = UA Glucose) AM) [facility] AND [id number] 07:51:00 Test Item Value Reference Range Interpretation Comments UA Protein (test code = Trace *ABN*(09/04/14 UA Protein) 1:51 AM) [facility] AND [id number] 07:51:00 Test Item Value Reference Range Interpretation Comments UA pH (test code = UA pH) 8.0 1 5.0-8.0 [facility] AND [id number] 07:51:00 Test Item Value Reference Range Interpretation Comments UA Spec Grav (test code = UA Spec 1.015 1 Grav) [facility] AND [id number] 07:51:00 Test Item Value Reference Range Interpretation Comments UA Bili (test code = Negative *NA*(09/04/14 UA Bili) 1:51 AM) [facility] AND [id number] 07:51:00 Test Item Value Reference Range Interpretation Comments UA Blood (test code = Large *ABN*(09/04/14 UA Blood) 1:51 AM) [facility] AND [id number] 07:51:00 Test Item Value Reference Range Interpretation Comments UA Leuk Est (test Negative (09/04/14 1:51 code = UA Leuk Est) AM) [facility] AND [id number] 07:51:00 Test Item Value Reference Range Interpretation Comments UA Nitrite (test code Negative (09/04/14 1:51 = UA Nitrite) AM) [facility] AND [id number] 07:51:00 Test Item Value Reference Range Interpretation Comments UA Amorph Joselin (test code = UA Few /HPF Amorph Joselin) [facility] AND [id number] 07:51:00 Test Item Value Reference Range Interpretation Comments UA RBC (test code 51-100 /HPF See_Comment [Automate d message] The = UA RBC) system which ge nerated this result tra nsmitted reference range : <=2. The reference r ozzy was not used to int erpret this result as normal/abnormal . [facility] AND [id number] 07:51:00 Test Item Value Reference Range Interpretation Comments UA WBC (test code = UA WBC) 6-10 /HPF [facility] AND [id number] 07:51:00 Test Item Value Reference Range Interpretation Comments UA Bacteria (test code = UA Few /HPF Bacteria) [facility] AND [id number] 07:51:00 Test Item Value Reference Range Interpretation Comments UA Sq Epi (test code = UA Sq Occasional /LPF Epi) [facility] [id number] 07:51:00 Test Item Value Reference Range Interpretation Comments ABO/Rh (test code = ABO/Rh) A POS [facility] [id number] 07:51:00 Test Item Value Reference Range Interpretation Comments Antibody Scrn (test Negative (09/04/14 1:51 code = Antibody Scrn) AM) [facility]2015-01-23 07:51:00 Test Item Value Reference Range Interpretation Comments Albumin Lvl (test code = Albumin Lvl) 3.4 3.5-5.0 [facility]2015-01-23 07:51:00 Test Item Value Reference Range Interpretation Comments Alk Phos (test code = Alk Phos) 64 39-136 [facility]2015-01-23 07:51:00 Test Item Value Reference Range Interpretation Comments ALT (test code = ALT) 18 See_Comment [Auto mated message] The system which ge nerated this result transmit gaye reference range : <=65. The reference range was not used to interpr et this result as satish l/abnormal. [facility]2015-01-23 07:51:00 Test Item Value Reference Range Interpretation Comments AST (test code = AST) 12 See_Comment [Auto mated message] The system which ge nerated this result transmit gaye reference range : <=37. The reference range was not used to interpr et this result as satish l/abnormal. [facility]2015-01-23 07:51:00 Test Item Value Reference Range Interpretation Comments eGFR (test code = eGFR) 93 [facility]2015-01-23 07:51:00 Test Item Value Reference Range Interpretation Comments Bili Total (test code = Bili Total) 0.3 0.2-1.3 [facility]2015-01-23 07:51:00 Test Item Value Reference Range Interpretation Comments Chloride Lvl (test code = Chloride Lvl) 108 95-109 [facility]2015-01-23 07:51:00 Test Item Value Reference Range Interpretation Comments Sodium Lvl (test code = Sodium Lvl) 138 135-145 [facility]2015-01-23 07:51:00 Test Item Value Reference Range Interpretation Comments Potassium Lvl (test code = Potassium 3.9 3.5-5.1 Lvl) [facility]2015-01-23 07:51:00 Test Item Value Reference Range Interpretation Comments CO2 (test code = CO2) 22 24-32 [facility]2015-01-23 07:51:00 Test Item Value Reference Range Interpretation Comments Calcium Lvl (test code = Calcium Lvl) 8.8 8.5-10.5 [id number] 07:51:00 Test Item Value Reference Range Interpretation Comments Glucose Lvl (test code = Glucose Lvl) 98 70-99 [facility] [id number] 07:51:00 Test Item Value Reference Range Interpretation Comments Total Protein (test code = Total 7.3 6.4-8.4 Protein) [facility] [id number] 07:51:00 Test Item Value Reference Range Interpretation Comments BUN (test code = BUN) 12 7-22 [facility] [place] [id number] 07:51:00 Test Item Value Reference Range Interpretation Comments Creatinine Lvl (test code = Creatinine 0.8 0.5-1.4 Lvl) [facility] [id number] 07:51:00 Test Item Value Reference Range Interpretation Comments AGAP (test code = AGAP) 11.9 10.0-20.0 [facility] [place] [id number] 07:51:00 Test Item Value Reference Range Interpretation Comments B/C Ratio (test code = B/C Ratio) 15 6-25 [facility] [id number] 07:51:00 Test Item Value Reference Range Interpretation Comments ABO/Rh (test code = ABO/Rh) A POS [facility] [id number] 07:51:00 Test Item Value Reference Range Interpretation Comments Antibody Scrn (test Negative (09/04/14 1:51 code = Antibody Scrn) AM) [facility] [id number] 07:51:00 Test Item Value Reference Range Interpretation Comments Albumin Lvl (test code = Albumin Lvl) 3.4 3.5-5.0 [facility] [place] [id number] 07:51:00 Test Item Value Reference Range Interpretation Comments Alk Phos (test code = Alk Phos) 64 39-136 [facility] [place] [id number] 07:51:00 Test Item Value Reference Range Interpretation Comments ALT (test code = ALT) 18 <=65 [facility] [place] [id number] 07:51:00 Test Item Value Reference Range Interpretation Comments AST (test code = AST) 12 <=37 [facility]2015-01-23 07:51:00 Test Item Value Reference Range Interpretation Comments eGFR (test code = eGFR) 93 [facility]2015-01-23 07:51:00 Test Item Value Reference Range Interpretation Comments Bili Total (test code = Bili Total) 0.3 0.2-1.3 [facility]2015-01-23 07:51:00 Test Item Value Reference Range Interpretation Comments Chloride Lvl (test code = Chloride Lvl) 108 95-109 [facility]2015-01-23 07:51:00 Test Item Value Reference Range Interpretation Comments Sodium Lvl (test code = Sodium Lvl) 138 135-145 [facility]2015-01-23 07:51:00 Test Item Value Reference Range Interpretation Comments Potassium Lvl (test code = Potassium 3.9 3.5-5.1 Lvl) [facility]2015-01-23 07:51:00 Test Item Value Reference Range Interpretation Comments CO2 (test code = CO2) 22 24-32 [facility]2015-01-23 07:51:00 Test Item Value Reference Range Interpretation Comments Calcium Lvl (test code = Calcium Lvl) 8.8 8.5-10.5 [facility]2015-01-23 07:51:00 Test Item Value Reference Range Interpretation Comments Glucose Lvl (test code = Glucose Lvl) 98 70-99 [facility]2015-01-23 07:51:00 Test Item Value Reference Range Interpretation Comments Total Protein (test code = Total 7.3 6.4-8.4 Protein) [facility]2015-01-23 07:51:00 Test Item Value Reference Range Interpretation Comments BUN (test code = BUN) 12 -22 [facility]2015-01-23 07:51:00 Test Item Value Reference Range Interpretation Comments Creatinine Lvl (test code = Creatinine 0.8 0.5-1.4 Lvl) [facility]2015-01-23 07:51:00 Test Item Value Reference Range Interpretation Comments AGAP (test code = AGAP) 11.9 10.0-20.0 [facility]2015-01-23 07:51:00 Test Item Value Reference Range Interpretation Comments B/C Ratio (test code = B/C Ratio) 15 6-25 [facility] [id number] 07:51:00 Test Item Value Reference Range Interpretation Comments Globulin (test code = Globulin) 3.9 2.0-4.0 [facility] [id number] 07:51:00 Test Item Value Reference Range Interpretation Comments A/G Ratio (test code = A/G Ratio) 0.9 0.7-1.6 [id number] 07:51:00 Test Item Value Reference Range Interpretation Comments hCG Tot (test code = hCG Tot) no gt [facility] [id number] 07:51:00 Test Item Value Reference Range Interpretation Comments MCHC (test code = MCHC) 33.8 32.0-36.0 [facility]WcxxtzfONYAEFGTFF8885-21-08 07:51:00 Test Item Value Reference Range Interpretation Comments MCH (test code = MCH) 30.3 pg 27.0-31.0 [facility] [id number] 07:51:00 Test Item Value Reference Range Interpretation Comments RDW (test code = RDW) 13.0 11.5-14.5 [facility] [id number] 07:51:00 Test Item Value Reference Range Interpretation Comments MPV (test code = MPV) 8.4 7.4-10.4 [facility] CenterRxswagxCZLREQGYHM4923-86-29 07:51:00 Test Item Value Reference Range Interpretation Comments Platelet (test code = Platelet) 356 133-450 [facility] CenterAjlmpfgJWFYGBVEFC8771-67-92 07:51:00 Test Item Value Reference Range Interpretation Comments RBC (test code = RBC) 4.45 4.20-5.40 [facility] Hos[id number] 07:51:00 Test Item Value Reference Range Interpretation Comments WBC (test code = WBC) 12.9 3.7-10.4 [facility] [id number] 07:51:00 Test Item Value Reference Range Interpretation Comments Hgb (test code = Hgb) 13.5 12.0-16.0 [facility] CenterIdltfurLTBSCUERSK3586-85-30 07:51:00 Test Item Value Reference Range Interpretation Comments MCV (test code = MCV) 89.7 80.0-98.0 [facility] Ho[id number] 07:51:00 Test Item Value Reference Range Interpretation Comments Hct (test code = Hct) 39.9 36.0-48.0 [facility] HospitalOvjknchCTZVFGCUXY9638-14-27 07:51:00 Test Item Value Reference Range Interpretation Comments Eosinophils # (test code = Eosinophils 0.3 <=0.5 #) [facility] HospitalDqsqmklYPPQFBWTGE6567-44-44 07:51:00 Test Item Value Reference Range Interpretation Comments Lymphocytes # (test code = Lymphocytes 3.6 1.0-5.5 #) [facility] Hos[id number] 07:51:00 Test Item Value Reference Range Interpretation Comments Monocytes # (test code = Monocytes #) 0.7 <=0.8 [facility] HospitalJeqecljZQSGSFQUNO2488-76-11 07:51:00 Test Item Value Reference Range Interpretation Comments Segs (test code = Segs) 63.9 45.0-75.0 [facility] HospitalFwuqleePMJZKUFPDZ6045-17-93 07:51:00 Test Item Value Reference Range Interpretation Comments Segs-Bands # (test code = Segs-Bands #) 8.2 1.5-8.1 [facility] H[id number] 07:51:00 Test Item Value Reference Range Interpretation Comments Basophils (test code = Basophils) 0.7 <=1.0 [facility] HospitalZmyhnlkPLXCJPHKZT1880-33-16 07:51:00 Test Item Value Reference Range Interpretation Comments Monocytes (test code = Monocytes) 5.4 2.0-12.0 [facility] HospitalMsffvonFPVVWXKQHA1417-24-37 07:51:00 Test Item Value Reference Range Interpretation Comments Eosinophils (test code = Eosinophils) 2.3 <=4.0 [facility] HospitalTsiugszYFAUVZUJKE6070-47-48 07:51:00 Test Item Value Reference Range Interpretation Comments Lymphocytes (test code = Lymphocytes) 27.7 20.0-40.0 [facility] HospitalUfhluziHZBVLBPRHG0982-00-39 07:51:00 Test Item Value Reference Range Interpretation Comments Basophils # (test code = Basophils #) 0.1 <=0.2 [facility] AND [id number] 07:51:00 Test Item Value Reference Range Interpretation Comments UA Urobilinogen (test code = UA 1.0 0.1-1.0 Urobilinogen) [facility] AND [id number] 07:51:00 Test Item Value Reference Range Interpretation Comments UA Turbidity (test code Cloudy *ABN*(09/04/14 = UA Turbidity) 1:51 AM) [facility] AND [id number] 07:51:00 Test Item Value Reference Range Interpretation Comments UA Color (test code = Red *ABN*(09/04/14 1:51 UA Color) AM) [facility] AND [id number] 07:51:00 Test Item Value Reference Range Interpretation Comments UA Ketones (test code Negative *NA*(09/04/14 = UA Ketones) 1:51 AM) [facility] AND [id number] 07:51:00 Test Item Value Reference Range Interpretation Comments UA Glucose (test code Negative (09/04/14 1:51 = UA Glucose) AM) [facility] AND [id number] 07:51:00 Test Item Value Reference Range Interpretation Comments UA Protein (test code = Trace *ABN*(09/04/14 UA Protein) 1:51 AM) [facility] AND [id number] 07:51:00 Test Item Value Reference Range Interpretation Comments UA pH (test code = UA pH) 8.0 1 5.0-8.0 [facility] AND [id number] 07:51:00 Test Item Value Reference Range Interpretation Comments UA Spec Grav (test code = UA Spec 1.015 1 Grav) [facility] AND [id number] 07:51:00 Test Item Value Reference Range Interpretation Comments UA Bili (test code = Negative *NA*(09/04/14 UA Bili) 1:51 AM) [facility] AND [id number] 07:51:00 Test Item Value Reference Range Interpretation Comments UA Blood (test code = Large *ABN*(09/04/14 UA Blood) 1:51 AM) [facility] AND [id number] 07:51:00 Test Item Value Reference Range Interpretation Comments UA Leuk Est (test Negative (09/04/14 1:51 code = UA Leuk Est) AM) [facility] AND [id number] 07:51:00 Test Item Value Reference Range Interpretation Comments UA Nitrite (test code Negative (09/04/14 1:51 = UA Nitrite) AM) [facility] AND [id number] 07:51:00 Test Item Value Reference Range Interpretation Comments UA Amorph Joselin (test code = UA Few /HPF Amorph Joselin) [facility] AND [id number] 07:51:00 Test Item Value Reference Range Interpretation Comments UA RBC (test code = UA RBC) 51-100 /HPF <=2 [facility] AND [id number] 07:51:00 Test Item Value Reference Range Interpretation Comments UA WBC (test code = UA WBC) 6-10 /HPF [facility] AND [id number] 07:51:00 Test Item Value Reference Range Interpretation Comments UA Bacteria (test code = UA Few /HPF Bacteria) [facility] AND [id number] 07:51:00 Test Item Value Reference Range Interpretation Comments UA Sq Epi (test code = UA Sq Occasional /LPF Epi) [facility]2015-01-12 19:24:00 Test Item Value Reference Range Interpretation Comments Lipase Lvl (test code = Lipase Lvl) 104 73-393 [facility]2015-01-12 19:24:00 Test Item Value Reference Range Interpretation Comments eGFR (test code = eGFR) 109 [facility]2015-01-12 19:24:00 Test Item Value Reference Range Interpretation Comments Bili Total (test code = Bili Total) 0.6 0.2-1.3 [facility]2015-01-12 19:24:00 Test Item Value Reference Range Interpretation Comments Alk Phos (test code = Alk Phos) 72 39-136 [facility]2015-01-12 19:24:00 Test Item Value Reference Range Interpretation Comments Calcium Lvl (test code = Calcium Lvl) 8.8 8.5-10.5 [facility]2015-01-12 19:24:00 Test Item Value Reference Range Interpretation Comments CO2 (test code = CO2) 28 24-32 [facility]2015-01-12 19:24:00 Test Item Value Reference Range Interpretation Comments Chloride Lvl (test code = Chloride Lvl) 107 95-109 [facility]2015-01-12 19:24:00 Test Item Value Reference Range Interpretation Comments Potassium Lvl (test code = Potassium 3.9 3.5-5.1 Lvl) [facility]2015-01-12 19:24:00 Test Item Value Reference Range Interpretation Comments Glucose Lvl (test code = Glucose Lvl) 90 70-99 [place] [id number] 19:24:00 Test Item Value Reference Range Interpretation Comments Sodium Lvl (test code = Sodium Lvl) 138 135-145 [facility]2015-01-12 19:24:00 Test Item Value Reference Range Interpretation Comments BUN (test code = BUN) 7 7-22 [facility]2015-01-12 19:24:00 Test Item Value Reference Range Interpretation Comments Creatinine Lvl (test code = Creatinine 0.7 0.5-1.4 Lvl) [facility]2015-01-12 19:24:00 Test Item Value Reference Range Interpretation Comments ALT (test code = ALT) 23 See_Comment [Auto mated message] The system which ge nerated this result transmit gaye reference range : <=65. The reference range was not used to interpr et this result as satish l/abnormal. [facility]2015-01-12 19:24:00 Test Item Value Reference Range Interpretation Comments AST (test code = AST) 12 See_Comment [Auto mated message] The system which ge nerated this result transmit gaye reference range : <=37. The reference range was not used to interpr et this result as satish l/abnormal. [facility]2015-01-12 19:24:00 Test Item Value Reference Range Interpretation Comments Albumin Lvl (test code = Albumin Lvl) 3.8 3.5-5.0 [facility]2015-01-12 19:24:00 Test Item Value Reference Range Interpretation Comments Total Protein (test code = Total 8.0 6.4-8.4 Protein) [facility] [facility]2015-01-12 19:24:00 Test Item Value Reference Range Interpretation Comments A/G Ratio (test code = A/G Ratio) 0.9 0.7-1.6 [place] [id number] 19:24:00 Test Item Value Reference Range Interpretation Comments AGAP (test code = AGAP) 6.9 10.0-20.0 [facility] [id number] 19:24:00 Test Item Value Reference Range Interpretation Comments B/C Ratio (test code = B/C Ratio) 10 6-25 [facility] [id number] 19:24:00 Test Item Value Reference Range Interpretation Comments Globulin (test code = Globulin) 4.2 2.0-4.0 [facility]5283[facility] 19:24:00 Test Item Value Reference Range Interpretation Comments S Preg (test code = S Negative *NA*(08/24/14 Preg) 1:24 PM) [facility]bgwoJIHWICHFWS6801-75-54 19:24:00 Test Item Value Reference Range Interpretation Comments WBC (test code = WBC) 11.3 3.7-10.4 [facility] CenterQstzsgeIGKPQOSQVK4951-03-95 19:24:00 Test Item Value Reference Range Interpretation Comments RBC (test code = RBC) 4.75 4.20-5.40 [facility] CenterFlnsvcpDNUJHHGTUZ9625-08-25 19:24:00 Test Item Value Reference Range Interpretation Comments Platelet (test code = Platelet) 402 133-450 [facility] CenterEdsyavrQAXOVBIFLP7398-93-63 19:24:00 Test Item Value Reference Range Interpretation Comments MCV (test code = MCV) 89.9 80.0-98.0 [facility] CenterByftpfpASSRJIHYHJ6409-83-60 19:24:00 Test Item Value Reference Range Interpretation Comments Hct (test code = Hct) 42.7 36.0-48.0 [facility] CenterJamvgtxXAKCTVIILQ3456-80-97 19:24:00 Test Item Value Reference Range Interpretation Comments Hgb (test code = Hgb) 14.5 12.0-16.0 [facility] CenterQthzphuYRQFGIJRWZ0643-07-91 19:24:00 Test Item Value Reference Range Interpretation Comments RDW (test code = RDW) 13.5 11.5-14.5 [facility] CenterSysjwoqNLCJCUOYBW4641-53-13 19:24:00 Test Item Value Reference Range Interpretation Comments MCHC (test code = MCHC) 34.0 32.0-36.0 [facility] CenterWvyvbobCXBGQDBCUD4216-90-59 19:24:00 Test Item Value Reference Range Interpretation Comments MCH (test code = MCH) 30.6 pg 27.0-31.0 [facility] CenterKyqddrbAGRNBOWIFS8513-34-27 19:24:00 Test Item Value Reference Range Interpretation Comments MPV (test code = MPV) 8.1 7.4-10.4 [facility] CenterOibipxcBMLNYGYCHW4443-53-33 19:24:00 Test Item Value Reference Range Interpretation Comments Stomatocyte (test code = Stomatocyte) [facility] CenterRrbjyofBDEVVCKIAW3508-43-79 19:24:00 Test Item Value Reference Range Interpretation Comments Basophils # (test code 0.1 See_Comment [Aut omated message] The = Basophils #) system which generated this result tra nsmitted reference range : <=0.2. The reference r ozzy was not used to int erpret this result as normal/abnormal . [facility] CenterCrkjgxqXAUUZHTRCD7642-77-04 19:24:00 Test Item Value Reference Range Interpretation Comments Eosinophils # (test code 0.2 See_Comment [A utomated message] The = Eosinophils #) system whic h generated this result tra nsmitted reference range : <=0.5. The reference r ozzy was not used to int erpret this result as normal/abnormal . [facility] CenterCtwycjjMVPMMSYOMR1728-26-53 19:24:00 Test Item Value Reference Range Interpretation Comments Hypochrom (test code = 1+ (08/24/14 1:24 PM) Hypochrom) [facility] CenterCrfpyopWVWTNEZTST4510-56-60 19:24:00 Test Item Value Reference Range Interpretation Comments Lymphocytes # (test code = Lymphocytes 2.8 1.0-5.5 #) [facility] CenterNiyddwvUSZCXZBJBL4411-37-64 19:24:00 Test Item Value Reference Range Interpretation Comments Segs-Bands # (test code = Segs-Bands #) 8.1 1.5-8.1 [facility] Cent[id number] 19:24:00 Test Item Value Reference Range Interpretation Comments Monocytes # (test code 0.2 See_Comment [Aut omated message] The = Monocytes #) system which generated this result tra nsmitted reference range : <=0.8. The reference r ozzy was not used to int erpret this result as normal/abnormal . [facility] CenterQbviemeNKNGCYRAKR1120-64-36 19:24:00 Test Item Value Reference Range Interpretation Comments Lymphocytes (test code = Lymphocytes) 24.5 20.0-40.0 [facility] CenterHqfpevyZETKOZCFLX3604-64-28 19:24:00 Test Item Value Reference Range Interpretation Comments Segs (test code = Segs) 71.8 45.0-75.0 [facility] CenterEgzjunaMPPSZQXKBI0493-75-88 19:24:00 Test Item Value Reference Range Interpretation Comments Basophils (test code = 0.6 See_Comment [Aut omated message] The Basophils) system which ge nerated this result tra nsmitted reference range : <=1.0. The reference r ozzy was not used to int erpret this result as normal/abnormal . [facility] CenterYzdwroeVASZMECPTJ9254-00-75 19:24:00 Test Item Value Reference Range Interpretation Comments Monocytes (test code = Monocytes) 1.5 2.0-12.0 [facility] CenterStkmynyTRUFSSVMNV4698-10-66 19:24:00 Test Item Value Reference Range Interpretation Comments Eosinophils (test code = 1.6 See_Comment [A utomated message] The Eosinophils) system which ge nerated this result tra nsmitted reference range : <=4.0. The reference r ozzy was not used to int erpret this result as normal/abnormal . [facility] CenterUfeztzlJBTFUOBLOP8986-89-43 19:24:00 Test Item Value Reference Range Interpretation Comments Plt Morph (test code = Normal (08/24/14 1:24 Plt Morph) PM) [facility] AND [id number] 19:24:00 Test Item Value Reference Range Interpretation Comments UA Sq Epi (test code = UA Sq Occasional /LPF Epi) [facility] AND [id number] 19:24:00 Test Item Value Reference Range Interpretation Comments UA Bacteria (test code = UA Occasional /HPF Bacteria) [facility] AND [id number] 19:24:00 Test Item Value Reference Range Interpretation Comments UA Mucus (test code = None Seen (08/24/14 UA Mucus) 1:24 PM) [facility] AND [id number] 19:24:00 Test Item Value Reference Range Interpretation Comments UA WBC (test code = UA WBC) 0-2 /HPF [facility] AND [id number] 19:24:00 Test Item Value Reference Range Interpretation Comments UA RBC (test code = 0-2 /HPF See_Comment [Automa gaye message] The UA RBC) system which ge nerated this result tra nsmitted reference range : <=2. The reference range was not used to interpr et this result as satish l/abnormal. [facility] AND [id number] 19:24:00 Test Item Value Reference Range Interpretation Comments UA Leuk Est (test Moderate *ABN*(08/24/14 code = UA Leuk Est) 1:24 PM) [facility] AND [id number] 19:24:00 Test Item Value Reference Range Interpretation Comments UA Nitrite (test code Negative (08/24/14 1:24 = UA Nitrite) PM) [facility] AND [id number] 19:24:00 Test Item Value Reference Range Interpretation Comments UA Urobilinogen (test code = UA 0.2 0.1-1.0 Urobilinogen) [facility] AND [id number] 19:24:00 Test Item Value Reference Range Interpretation Comments UA Ketones (test code Negative *NA*(08/24/14 = UA Ketones) 1:24 PM) [facility] AND [id number] 19:24:00 Test Item Value Reference Range Interpretation Comments UA Blood (test code = Negative (08/24/14 1:24 UA Blood) PM) [facility] AND [id number] 19:24:00 Test Item Value Reference Range Interpretation Comments UA Bili (test code = Negative *NA*(08/24/14 UA Bili) 1:24 PM) [facility] AND [id number] 19:24:00 Test Item Value Reference Range Interpretation Comments UA Color (test code = Yellow *NA*(08/24/14 UA Color) 1:24 PM) [facility] AND [id number] 19:24:00 Test Item Value Reference Range Interpretation Comments UA Glucose (test code Negative (08/24/14 1:24 = UA Glucose) PM) [facility] AND [id number] 19:24:00 Test Item Value Reference Range Interpretation Comments UA Protein (test code Negative (08/24/14 1:24 = UA Protein) PM) [facility] AND [id number] 19:24:00 Test Item Value Reference Range Interpretation Comments UA pH (test code = UA pH) 6.0 1 5.0-8.0 [facility] AND [id number] 19:24:00 Test Item Value Reference Range Interpretation Comments UA Spec Grav (test code *NA*(08/24/14 1:24 PM) = UA Spec Grav) [facility] AND [id number] 19:24:00 Test Item Value Reference Range Interpretation Comments UA Turbidity (test code = Clear (08/24/14 1:24 UA Turbidity) PM) [facility]2015-01-12 19:24:00 Test Item Value Reference Range Interpretation Comments Lipase Lvl (test code = Lipase Lvl) 104 73-393 [facility]2015-01-12 19:24:00 Test Item Value Reference Range Interpretation Comments eGFR (test code = eGFR) 109 [facility]2015-01-12 19:24:00 Test Item Value Reference Range Interpretation Comments Bili Total (test code = Bili Total) 0.6 0.2-1.3 [facility]2015-01-12 19:24:00 Test Item Value Reference Range Interpretation Comments Alk Phos (test code = Alk Phos) 72 39-136 [facility]2015-01-12 19:24:00 Test Item Value Reference Range Interpretation Comments Calcium Lvl (test code = Calcium Lvl) 8.8 8.5-10.5 [facility]2015-01-12 19:24:00 Test Item Value Reference Range Interpretation Comments CO2 (test code = CO2) 28 24-32 [facility]2015-01-12 19:24:00 Test Item Value Reference Range Interpretation Comments Chloride Lvl (test code = Chloride Lvl) 107 95-109 [facility]2015-01-12 19:24:00 Test Item Value Reference Range Interpretation Comments Potassium Lvl (test code = Potassium 3.9 3.5-5.1 Lvl) [facility]2015-01-12 19:24:00 Test Item Value Reference Range Interpretation Comments Glucose Lvl (test code = Glucose Lvl) 90 70-99 [facility]2015-01-12 19:24:00 Test Item Value Reference Range Interpretation Comments Sodium Lvl (test code = Sodium Lvl) 138 135-145 [facility]2015-01-12 19:24:00 Test Item Value Reference Range Interpretation Comments BUN (test code = BUN) 7 7-22 [facility]2015-01-12 19:24:00 Test Item Value Reference Range Interpretation Comments Creatinine Lvl (test code = Creatinine 0.7 0.5-1.4 Lvl) [facility]2015-01-12 19:24:00 Test Item Value Reference Range Interpretation Comments ALT (test code = ALT) 23 See_Comment [Auto mated message] The system which ge nerated this result transmit gaye reference range : <=65. The reference range was not used to interpr et this result as satish l/abnormal. [facility]2015-01-12 19:24:00 Test Item Value Reference Range Interpretation Comments AST (test code = AST) 12 See_Comment [Auto mated message] The system which ge nerated this result transmit gaye reference range : <=37. The reference range was not used to interpr et this result as satish l/abnormal. [facility]2015-01-12 19:24:00 Test Item Value Reference Range Interpretation Comments Albumin Lvl (test code = Albumin Lvl) 3.8 3.5-5.0 [facility]2015-01-12 19:24:00 Test Item Value Reference Range Interpretation Comments Total Protein (test code = Total 8.0 6.4-8.4 Protein) [facility]2015-01-12 19:24:00 Test Item Value Reference Range Interpretation Comments A/G Ratio (test code = A/G Ratio) 0.9 0.7-1.6 [facility]2015-01-12 19:24:00 Test Item Value Reference Range Interpretation Comments AGAP (test code = AGAP) 6.9 10.0-20.0 [facility]2015-01-12 19:24:00 Test Item Value Reference Range Interpretation Comments B/C Ratio (test code = B/C Ratio) 10 6-25 [facility]2015-01-12 19:24:00 Test Item Value Reference Range Interpretation Comments Globulin (test code = Globulin) 4.2 2.0-4.0 [id number] 19:24:00 Test Item Value Reference Range Interpretation Comments S Preg (test code = S Negative *NA*(08/24/14 Preg) 1:24 PM) [facility]XtqzcqwOMPVVGDXEW9799-35-43 19:24:00 Test Item Value Reference Range Interpretation Comments WBC (test code = WBC) 11.3 3.7-10.4 [facility] CenterIwkelxoFTRHHMQXDQ5467-63-68 19:24:00 Test Item Value Reference Range Interpretation Comments RBC (test code = RBC) 4.75 4.20-5.40 [facility] CenterTuopskwOWAXKBRDAQ1755-66-15 19:24:00 Test Item Value Reference Range Interpretation Comments Platelet (test code = Platelet) 402 133-450 [facility] CenterItcovqqNPWKLRLSZS5738-21-85 19:24:00 Test Item Value Reference Range Interpretation Comments MCV (test code = MCV) 89.9 80.0-98.0 [facility] CenterGzmdxivQTBSZRZJLU1405-03-27 19:24:00 Test Item Value Reference Range Interpretation Comments Hct (test code = Hct) 42.7 36.0-48.0 [facility] CenterAirxnidRCVNWRTMII7905-95-70 19:24:00 Test Item Value Reference Range Interpretation Comments Hgb (test code = Hgb) 14.5 12.0-16.0 [facility] CenterDtgkmzpEXJPBAAYOC7922-33-67 19:24:00 Test Item Value Reference Range Interpretation Comments RDW (test code = RDW) 13.5 11.5-14.5 [facility] CenterDhnuglfLRYLNUUJUJ3364-86-94 19:24:00 Test Item Value Reference Range Interpretation Comments MCHC (test code = MCHC) 34.0 32.0-36.0 [facility] CenterCouhsaxRTXQOZLLLB3939-60-23 19:24:00 Test Item Value Reference Range Interpretation Comments MCH (test code = MCH) 30.6 pg 27.0-31.0 [facility] CenterYvyugsxEYTJVBTLNI6929-83-16 19:24:00 Test Item Value Reference Range Interpretation Comments MPV (test code = MPV) 8.1 7.4-10.4 [facility] CenterIruegglGRONSATIBB9625-82-87 19:24:00 Test Item Value Reference Range Interpretation Comments Stomatocyte (test code = Stomatocyte) [facility] CenterYualmleUJASCSUXOH2764-62-10 19:24:00 Test Item Value Reference Range Interpretation Comments Basophils # (test code 0.1 See_Comment [Aut omated message] The = Basophils #) system which generated this result tra nsmitted reference range : <=0.2. The reference r ozzy was not used to int erpret this result as normal/abnormal . [facility] CenterKyzcoqaZGXQMOFRAQ6225-03-19 19:24:00 Test Item Value Reference Range Interpretation Comments Eosinophils # (test code 0.2 See_Comment [A utomated message] The = Eosinophils #) system whic h generated this result tra nsmitted reference range : <=0.5. The reference r ozzy was not used to int erpret this result as normal/abnormal . [facility] CenterTpkjtuzBMULTRSFZL8059-57-27 19:24:00 Test Item Value Reference Range Interpretation Comments Hypochrom (test code = 1+ (08/24/14 1:24 PM) Hypochrom) [facility] CenterKuspnlsTGKLUTNHMT6150-83-04 19:24:00 Test Item Value Reference Range Interpretation Comments Lymphocytes # (test code = Lymphocytes 2.8 1.0-5.5 #) [facility] CenterYlbiinqORCEXLEGJW2598-81-56 19:24:00 Test Item Value Reference Range Interpretation Comments Segs-Bands # (test code = Segs-Bands #) 8.1 1.5-8.1 [facility] CenterWijlponJVGWAZEVIN2332-24-34 19:24:00 Test Item Value Reference Range Interpretation Comments Monocytes # (test code 0.2 See_Comment [Aut omated message] The = Monocytes #) system which generated this result tra nsmitted reference range : <=0.8. The reference r ozzy was not used to int erpret this result as normal/abnormal . [facility] CenterJfgjpppOUVFKOQSXZ0900-56-91 19:24:00 Test Item Value Reference Range Interpretation Comments Lymphocytes (test code = Lymphocytes) 24.5 20.0-40.0 [facility] CenterKrwlnddHVECBZYDMO5539-53-81 19:24:00 Test Item Value Reference Range Interpretation Comments Segs (test code = Segs) 71.8 45.0-75.0 [facility] CenterAgvanjfZBHRCKVYVO3060-23-56 19:24:00 Test Item Value Reference Range Interpretation Comments Basophils (test code = 0.6 See_Comment [Aut omated message] The Basophils) system which ge nerated this result tra nsmitted reference range : <=1.0. The reference r ozzy was not used to int erpret this result as normal/abnormal . [facility] CenterYhhnihlQNBHLXUHHO1648-34-40 19:24:00 Test Item Value Reference Range Interpretation Comments Monocytes (test code = Monocytes) 1.5 2.0-12.0 [facility] CenterBsodeatAIEYEMABXQ5811-31-09 19:24:00 Test Item Value Reference Range Interpretation Comments Eosinophils (test code = 1.6 See_Comment [A utomated message] The Eosinophils) system which ge nerated this result tra nsmitted reference range : <=4.0. The reference r ozzy was not used to int erpret this result as normal/abnormal . [facility] CenterUilhckfLCYECXQFXX0849-60-75 19:24:00 Test Item Value Reference Range Interpretation Comments Plt Morph (test code = Normal (08/24/14 1:24 Plt Morph) PM) [facility] AND [id number] 19:24:00 Test Item Value Reference Range Interpretation Comments UA Sq Epi (test code = UA Sq Occasional /LPF Epi) [facility] AND [id number] 19:24:00 Test Item Value Reference Range Interpretation Comments UA Bacteria (test code = UA Occasional /HPF Bacteria) [facility] AND [id number] 19:24:00 Test Item Value Reference Range Interpretation Comments UA Mucus (test code = None Seen (08/24/14 UA Mucus) 1:24 PM) [facility] AND [id number] 19:24:00 Test Item Value Reference Range Interpretation Comments UA WBC (test code = UA WBC) 0-2 /HPF [facility] AND [id number] 19:24:00 Test Item Value Reference Range Interpretation Comments UA RBC (test code = 0-2 /HPF See_Comment [Automa gaye message] The UA RBC) system which ge nerated this result tra nsmitted reference range : <=2. The reference range was not used to interpr et this result as satish l/abnormal. [facility] AND [id number] 19:24:00 Test Item Value Reference Range Interpretation Comments UA Leuk Est (test Moderate *ABN*(08/24/14 code = UA Leuk Est) 1:24 PM) [facility] AND [id number] 19:24:00 Test Item Value Reference Range Interpretation Comments UA Nitrite (test code Negative (08/24/14 1:24 = [facility]A Nitrite) PM) [facility] [id number] 19:24:00 Test Item Value Reference Range Interpretation Comments UA Urobilinogen (test code = UA 0.2 0.1-1.0 Urobilinogen) [facility] [id number] 19:24:00 Test Item Value Reference Range Interpretation Comments UA Ketones (test code Negative *NA*(08/24/14 = UA Ketones) 1:24 PM) [facility] [id number] 19:24:00 Test Item Value Reference Range Interpretation Comments UA Blood (test code = Negative (08/24/14 1:24 UA Blood) PM) [facility] [id number] 19:24:00 Test Item Value Reference Range Interpretation Comments UA Bili (test code = Negative *NA*(08/24/14 UA Bili) 1:24 PM) [facility] [id number] 19:24:00 Test Item Value Reference Range Interpretation Comments UA Color (test code = Yellow *NA*(08/24/14 UA Color) 1:24 PM) [facility] [id number] 19:24:00 Test Item Value Reference Range Interpretation Comments UA Glucose (test code Negative (08/24/14 1:24 = UA Glucose) PM) [facility] [id number] 19:24:00 Test Item Value Reference Range Interpretation Comments UA Protein (test code Negative (08/24/14 1:24 = UA Protein) PM) [facility] [id number] 19:24:00 Test Item Value Reference Range Interpretation Comments UA pH (test code = UA pH) 6.0 1 5.0-8.0 [facility] [id number] 19:24:00 Test Item Value Reference Range Interpretation Comments UA Spec Grav (test code *NA*(08/24/14 1:24 PM) = UA Spec Grav) [facility] [id number] 19:24:00 Test Item Value Reference Range Interpretation Comments UA Turbidity (test code = Clear (08/24/14 1:24 UA Turbidity) PM) [facility] [id number] 19:24:00 Test Item Value Reference Range Interpretation Comments Lipase Lvl (test code = Lipase Lvl) 104 73-393 [facility]2015-01-12 19:24:00 Test Item Value Reference Range Interpretation Comments eGFR (test code = eGFR) 109 [facility]2015-01-12 19:24:00 Test Item Value Reference Range Interpretation Comments Bili Total (test code = Bili Total) 0.6 0.2-1.3 [facility]2015-01-12 19:24:00 Test Item Value Reference Range Interpretation Comments Alk Phos (test code = Alk Phos) 72 39-136 [facility]2015-01-12 19:24:00 Test Item Value Reference Range Interpretation Comments Calcium Lvl (test code = Calcium Lvl) 8.8 8.5-10.5 [facility]2015-01-12 19:24:00 Test Item Value Reference Range Interpretation Comments CO2 (test code = CO2) 28 24-32 [facility]2015-01-12 19:24:00 Test Item Value Reference Range Interpretation Comments Chloride Lvl (test code = Chloride Lvl) 107 95-109 [facility]2015-01-12 19:24:00 Test Item Value Reference Range Interpretation Comments Potassium Lvl (test code = Potassium 3.9 3.5-5.1 Lvl) [facility]2015-01-12 19:24:00 Test Item Value Reference Range Interpretation Comments Glucose Lvl (test code = Glucose Lvl) 90 70-99 [facility]2015-01-12 19:24:00 Test Item Value Reference Range Interpretation Comments Sodium Lvl (test code = Sodium Lvl) 138 135-145 [facility]2015-01-12 19:24:00 Test Item Value Reference Range Interpretation Comments BUN (test code = BUN) 7 7-22 [facility]2015-01-12 19:24:00 Test Item Value Reference Range Interpretation Comments Creatinine Lvl (test code = Creatinine 0.7 0.5-1.4 Lvl) [facility]2015-01-12 19:24:00 Test Item Value Reference Range Interpretation Comments ALT (test code = ALT) 23 See_Comment [Auto mated message] The system which ge nerated this result transmit gaye reference range : <=65. The reference range was not used to interpr et this result as satish l/abnormal. [facility]2015-01-12 19:24:00 Test Item Value Reference Range Interpretation Comments AST (test code = AST) 12 See_Comment [Auto mated message] The system which ge nerated this result transmit gaye reference range : <=37. The reference range was not used to interpr et this result as satish l/abnormal. [facility]2015-01-12 19:24:00 Test Item Value Reference Range Interpretation Comments Albumin Lvl (test code = Albumin Lvl) 3.8 3.5-5.0 [facility]2015-01-12 19:24:00 Test Item Value Reference Range Interpretation Comments Total Protein (test code = Total 8.0 6.4-8.4 Protein) [facility]2015-01-12 19:24:00 Test Item Value Reference Range Interpretation Comments A/G Ratio (test code = A/G Ratio) 0.9 0.7-1.6 [facility]2015-01-12 19:24:00 Test Item Value Reference Range Interpretation Comments AGAP (test code = AGAP) 6.9 10.0-20.0 [facility]2015-01-12 19:24:00 Test Item Value Reference Range Interpretation Comments B/C Ratio (test code = B/C Ratio) 10 6-25 [facility]2015-01-12 19:24:00 Test Item Value Reference Range Interpretation Comments Globulin (test code = Globulin) 4.2 2.0-4.[address] [facility]A[id number] 19:24:00 Test Item Value Reference Range Interpretation Comments S Preg (test code = S Negative *NA*(08/24/14 Preg) 1:24 PM) [facility]ExpqijsYILNWRMFVE2291-65-46 19:24:00 Test Item Value Reference Range Interpretation Comments WBC (test code = WBC) 11.3 3.7-10.4 [facility] CenterAlqoiivHETRBDZHMY6798-97-35 19:24:00 Test Item Value Reference Range Interpretation Comments RBC (test code = RBC) 4.75 4.20-5.40 [facility] CenterDtoaqshNSHBYZIQXS0987-79-84 19:24:00 Test Item Value Reference Range Interpretation Comments Platelet (test code = Platelet) 402 133-450 [facility]DzqrzxiOMFXTAGWVI0831-94-00 19:24:00 Test Item Value Reference Range Interpretation Comments MCV (test code = MCV) 89.9 80.0-98.0 [id number] 19:24:00 Test Item Value Reference Range Interpretation Comments Hct (test code = Hct) 42.7 36.0-48.0 [facility] CenterHkgspntZHRMDIQIAL7752-96-39 19:24:00 Test Item Value Reference Range Interpretation Comments Hgb (test code = Hgb) 14.5 12.0-16.0 [facility] Cent[id number] 19:24:00 Test Item Value Reference Range Interpretation Comments RDW (test code = RDW) 13.5 11.5-14.5 [facility] Cent[id number] 19:24:00 Test Item Value Reference Range Interpretation Comments MCHC (test code = MCHC) 34.0 32.0-36.0 [facility] Cent[id number] 19:24:00 Test Item Value Reference Range Interpretation Comments MCH (test code = MCH) 30.6 pg 27.0-31.0 [facility] CenterLxeexmoNKWFSATHDN7892-24-20 19:24:00 Test Item Value Reference Range Interpretation Comments MPV (test code = MPV) 8.1 7.4-10.4 [facility] CenterBbocgbuHPLOJBINTT8932-25-74 19:24:00 Test Item Value Reference Range Interpretation Comments Stomatocyte (test code = Stomatocyte) [facility] CenterIlwvvptEWQQPGZHRQ8661-14-39 19:24:00 Test Item Value Reference Range Interpretation Comments Basophils # (test code 0.1 See_Comment [Aut omated message] The = Basophils #) system which generated this result tra nsmitted reference range : <=0.2. The reference r ozzy was not used to int erpret this result as normal/abnormal . [facility] CenterGztolqmDHOOGHMQAE2444-52-39 19:24:00 Test Item Value Reference Range Interpretation Comments Eosinophils # (test code 0.2 See_Comment [A utomated message] The = Eosinophils #) system whic h generated this result tra nsmitted reference range : <=0.5. The reference r ozzy was not used to int erpret this result as normal/abnormal . [facility] CenterMunptlfNJJYEMIVDQ0450-97-53 19:24:00 Test Item Value Reference Range Interpretation Comments Hypochrom (test code = 1+ (08/24/14 1:24 PM) Hypochrom) [facility] CenterUnznraeRUCTWRAWAT2384-61-56 19:24:00 Test Item Value Reference Range Interpretation Comments Lymphocytes # (test code = Lymphocytes 2.8 1.0-5.5 #) [facility] CenterFfymayjYZRUJAUAFJ2040-11-14 19:24:00 Test Item Value Reference Range Interpretation Comments Segs-Bands # (test code = Segs-Bands #) 8.1 1.5-8.1 [facility] Cent[id number] 19:24:00 Test Item Value Reference Range Interpretation Comments Monocytes # (test code 0.2 See_Comment [Aut omated message] The = Monocytes #) system which generated this result tra nsmitted reference range : <=0.8. The reference r ozzy was not used to int erpret this result as normal/abnormal . [facility] CenterPvwoelaPLLCDVNWKG3990-02-65 19:24:00 Test Item Value Reference Range Interpretation Comments Lymphocytes (test code = Lymphocytes) 24.5 20.0-40.0 [facility] CenterNaqzjkxCLVAZVIZWY7359-98-68 19:24:00 Test Item Value Reference Range Interpretation Comments Segs (test code = Segs) 71.8 45.0-75.0 [facility] CenterUuaixofZJFWQRVBZB5790-86-27 19:24:00 Test Item Value Reference Range Interpretation Comments Basophils (test code = 0.6 See_Comment [Aut omated message] The Basophils) system which ge nerated this result tra nsmitted reference range : <=1.0. The reference r ozzy was not used to int erpret this result as normal/abnormal . [facility] [id number] 19:24:00 Test Item Value Reference Range Interpretation Comments Monocytes (test code = Monocytes) 1.5 2.0-12.0 [facility] CenterBpwkoohBEDQEIUSQO6470-98-19 19:24:00 Test Item Value Reference Range Interpretation Comments Eosinophils (test code = 1.6 See_Comment [A utomated message] The Eosinophils) system which ge nerated this result tra nsmitted reference range : <=4.0. The reference r ozzy was not used to int erpret this result as normal/abnormal . [facility] Cent[id number] 19:24:00 Test Item Value Reference Range Interpretation Comments Plt Morph (test code = Normal (08/24/14 1:24 Plt Morph) PM) [facility] AND [id number] 19:24:00 Test Item Value Reference Range Interpretation Comments UA Sq Epi (test code = UA Sq Occasional /LPF Epi) [facility] AND [id number] 19:24:00 Test Item Value Reference Range Interpretation Comments UA Bacteria (test code = UA Occasional /HPF Bacteria) [facility] AND [id number] 19:24:00 Test Item Value Reference Range Interpretation Comments UA Mucus (test code = None Seen (08/24/14 UA Mucus) 1:24 PM) [facility] AND [id number] 19:24:00 Test Item Value Reference Range Interpretation Comments UA WBC (test code = UA WBC) 0-2 /HPF [facility] AND [id number] 19:24:00 Test Item Value Reference Range Interpretation Comments UA RBC (test code = 0-2 /HPF See_Comment [Automa gaye message] The UA RBC) system which ge nerated this result tra nsmitted reference range : <=2. The reference range was not used to interpr et this result as satish l/abnormal. [facility] AND [id number] 19:24:00 Test Item Value Reference Range Interpretation Comments UA Leuk Est (test Moderate *ABN*(08/24/14 code = UA Leuk Est) 1:24 PM) [facility] AND [id number] 19:24:00 Test Item Value Reference Range Interpretation Comments UA Nitrite (test code Negative (08/24/14 1:24 = UA Nitrite) PM) [facility] AND [id number] 19:24:00 Test Item Value Reference Range Interpretation Comments UA Urobilinogen (test code = UA 0.2 0.1-1.0 Urobilinogen) [facility] AND [id number] 19:24:00 Test Item Value Reference Range Interpretation Comments UA Ketones (test code Negative *NA*(08/24/14 = UA Ketones) 1:24 PM) [facility] AND [id number] 19:24:00 Test Item Value Reference Range Interpretation Comments UA Blood (test code = Negative (08/24/14 1:24 UA Blood) PM) [facility] AND [id number] 19:24:00 Test Item Value Reference Range Interpretation Comments UA Bili (test code = Negative *NA*(08/24/14 UA Bili) 1:24 PM) [facility] AND [id number] 19:24:00 Test Item Value Reference Range Interpretation Comments UA Color (test code = Yellow *NA*(08/24/14 UA Color) 1:24 PM) [facility] AND [id number] 19:24:00 Test Item Value Reference Range Interpretation Comments UA Glucose (test code Negative (08/24/14 1:24 = UA Glucose) PM) [facility] AND [id number] 19:24:00 Test Item Value Reference Range Interpretation Comments UA Protein (test code Negative (08/24/14 1:24 = UA Protein) PM) [facility] AND [id number] 19:24:00 Test Item Value Reference Range Interpretation Comments UA pH (test code = UA pH) 6.0 1 5.0-8.0 [facility] AND [id number] 19:24:00 Test Item Value Reference Range Interpretation Comments UA Spec Grav (test code *NA*(08/24/14 1:24 PM) = UA Spec Grav) [facility] AND [id number] 19:24:00 Test Item Value Reference Range Interpretation Comments UA Turbidity (test code = Clear (08/24/14 1:24 UA Turbidity) PM) [facility] [id number] 19:24:00 Test Item Value Reference Range Interpretation Comments Lipase Lvl (test code = Lipase Lvl) 104 73-393 [facility] [id number] 19:24:00 Test Item Value Reference Range Interpretation Comments eGFR (test code = eGFR) 109 [facility]2015-01-12 19:24:00 Test Item Value Reference Range Interpretation Comments Bili Total (test code = Bili Total) 0.6 0.2-1.3 [facility] [id number] 19:24:00 Test Item Value Reference Range Interpretation Comments Alk Phos (test code = Alk Phos) 72 39-136 [facility]2015-01-12 19:24:00 Test Item Value Reference Range Interpretation Comments Calcium Lvl (test code = Calcium Lvl) 8.8 8.5-10.5 [facility]2015-01-12 19:24:00 Test Item Value Reference Range Interpretation Comments CO2 (test code = CO2) 28 24-32 [facility]2015-01-12 19:24:00 Test Item Value Reference Range Interpretation Comments Chloride Lvl (test code = Chloride Lvl) 107 95-109 [facility]2015-01-12 19:24:00 Test Item Value Reference Range Interpretation Comments Potassium Lvl (test code = Potassium 3.9 3.5-5.1 Lvl) [facility]2015-01-12 19:24:00 Test Item Value Reference Range Interpretation Comments Glucose Lvl (test code = Glucose Lvl) 90 70-99 [facility]2015-01-12 19:24:00 Test Item Value Reference Range Interpretation Comments Sodium Lvl (test code = Sodium Lvl) 138 135-145 [facility]2015-01-12 19:24:00 Test Item Value Reference Range Interpretation Comments BUN (test code = BUN) 7 7-22 [facility]2015-01-12 19:24:00 Test Item Value Reference Range Interpretation Comments Creatinine Lvl (test code = Creatinine 0.7 0.5-1.4 Lvl) [facility]2015-01-12 19:24:00 Test Item Value Reference Range Interpretation Comments ALT (test code = ALT) 23 See_Comment [Auto mated message] The system which ge nerated this result transmit gaye reference range : <=65. The reference range was not used to interpr et this result as satish l/abnormal. [facility]2015-01-12 19:24:00 Test Item Value Reference Range Interpretation Comments AST (test code = AST) 12 See_Comment [Auto mated message] The system which ge nerated this result transmit gaye reference range : <=37. The reference range was not used to interpr et this result as satish l/abnormal. [place] [id number] 19:24:00 Test Item Value Reference Range Interpretation Comments Albumin Lvl (test code = Albumin Lvl) 3.8 3.5-5.0 [facility]2015-01-12 19:24:00 Test Item Value Reference Range Interpretation Comments Total Protein (test code = Total 8.0 6.4-8.4 Protein) [facility]2015-01-12 19:24:00 Test Item Value Reference Range Interpretation Comments A/G Ratio (test code = A/G Ratio) 0.9 0.7-1.6 [facility]2015-01-12 19:24:00 Test Item Value Reference Range Interpretation Comments AGAP (test code = AGAP) 6.9 10.0-20.0 [facility]2015-01-12 19:24:00 Test Item Value Reference Range Interpretation Comments B/C Ratio (test code = B/C Ratio) 10 6-25 [facility]2015-01-12 19:24:00 Test Item Value Reference Range Interpretation Comments Globulin (test code = Globulin) 4.2 2.0-4.[address] [facility] HospitalUefrfkgTXRGBKYPFNLPK9992-08-92 19:24:00 Test Item Value Reference Range Interpretation Comments S Preg (test code = S Negative *NA*(08/24/14 Preg) 1:24 PM) [id number] 19:24:00 Test Item Value Reference Range Interpretation Comments WBC (test code = WBC) 11.3 3.7-10.4 [facility] CenterMkcthczQTPFWZQSOM1328-74-45 19:24:00 Test Item Value Reference Range Interpretation Comments RBC (test code = RBC) 4.75 4.20-5.40 [facility] CenterTdwglcqYIYBLOMUZB2236-98-21 19:24:00 Test Item Value Reference Range Interpretation Comments Platelet (test code = Platelet) 402 133-450 [facility] [id number] 19:24:00 Test Item Value Reference Range Interpretation Comments MCV (test code = MCV) 89.9 80.0-98.0 [facility] CenterRvzhybyJYZWSXKJWY4511-05-59 19:24:00 Test Item Value Reference Range Interpretation Comments Hct (test code = Hct) 42.7 36.0-48.0 [facility] CenterCsznueoKWOABHXHHB7860-43-34 19:24:00 Test Item Value Reference Range Interpretation Comments Hgb (test code = Hgb) 14.5 12.0-16.0 [facility] CenterPhzzbszPYPBALFPAJ8048-90-59 19:24:00 Test Item Value Reference Range Interpretation Comments RDW (test code = RDW) 13.5 11.5-14.5 [facility] CenterWopdkfjVQWVTMTUMN1076-80-24 19:24:00 Test Item Value Reference Range Interpretation Comments MCHC (test code = MCHC) 34.0 32.0-36.0 [facility] CenterEghsdkpOXRTPHEJLX2089-86-39 19:24:00 Test Item Value Reference Range Interpretation Comments MCH (test code = MCH) 30.6 pg 27.0-31.0 [facility] Cent[id number] 19:24:00 Test Item Value Reference Range Interpretation Comments MPV (test code = MPV) 8.1 7.4-10.4 [facility] CenterWvkttoqPTBJIBEFYE2156-53-44 19:24:00 Test Item Value Reference Range Interpretation Comments Stomatocyte (test code = Stomatocyte) [facility] Cent[id number] 19:24:00 Test Item Value Reference Range Interpretation Comments Basophils # (test code 0.1 See_Comment [Aut omated message] The = Basophils #) system which generated this result tra nsmitted reference range : <=0.2. The reference r ozzy was not used to int erpret this result as normal/abnormal . [facility] CenterO[id number] 19:24:00 Test Item Value Reference Range Interpretation Comments Eosinophils # (test code 0.2 See_Comment [A utomated message] The = Eosinophils #) system whic h generated this result tra nsmitted reference range : <=0.5. The reference r ozzy was not used to int erpret this result as normal/abnormal . [facility] CenterQzkqfzaPPBSNVLGGH9065-01-91 19:24:00 Test Item Value Reference Range Interpretation Comments Hypochrom (test code = 1+ (08/24/14 1:24 PM) Hypochrom) [facility] CenterDnunijsLFAYSPJQFV1597-29-55 19:24:00 Test Item Value Reference Range Interpretation Comments Lymphocytes # (test code = Lymphocytes 2.8 1.0-5.5 #) [facility] CenterNzyxdbjFOTVHPPUVA7516-56-31 19:24:00 Test Item Value Reference Range Interpretation Comments Segs-Bands # (test code = Segs-Bands #) 8.1 1.5-8.1 [facility] Cent[id number] 19:24:00 Test Item Value Reference Range Interpretation Comments Monocytes # (test code 0.2 See_Comment [Aut omated message] The = Monocytes #) system which generated this result tra nsmitted reference range : <=0.8. The reference r ozzy was not used to int erpret this result as normal/abnormal . [facility] CenterWxhvyexJJMCUJBPWM1775-22-96 19:24:00 Test Item Value Reference Range Interpretation Comments Lymphocytes (test code = Lymphocytes) 24.5 20.0-40.0 [facility] Cent[id number] 19:24:00 Test Item Value Reference Range Interpretation Comments Segs (test code = Segs) 71.8 45.0-75.0 [facility] CenterRetaaycAUBIYEGJOC5060-59-25 19:24:00 Test Item Value Reference Range Interpretation Comments Basophils (test code = 0.6 See_Comment [Aut omated message] The Basophils) system which ge nerated this result tra nsmitted reference range : <=1.0. The reference r ozzy was not used to int erpret this result as normal/abnormal . [facility] CenterAccmdsjVZNFVKCDVW8830-64-04 19:24:00 Test Item Value Reference Range Interpretation Comments Monocytes (test code = Monocytes) 1.5 2.0-12.0 [facility] CenterCkrfiqbOTYGQKMPRO4164-93-19 19:24:00 Test Item Value Reference Range Interpretation Comments Eosinophils (test code = 1.6 See_Comment [A utomated message] The Eosinophils) system which ge nerated this result tra nsmitted reference range : <=4.0. The reference r ozzy was not used to int erpret this result as normal/abnormal . [facility] Cent[id number] 19:24:00 Test Item Value Reference Range Interpretation Comments Plt Morph (test code = Normal (08/24/14 1:24 Plt Morph) PM) [facility] AND [id number] 19:24:00 Test Item Value Reference Range Interpretation Comments UA Sq Epi (test code = UA Sq Occasional /LPF Epi) [facility] AND [id number] 19:24:00 Test Item Value Reference Range Interpretation Comments UA Bacteria (test code = UA Occasional /HPF Bacteria) [facility] AND [id number] 19:24:00 Test Item Value Reference Range Interpretation Comments UA Mucus (test code = None Seen (08/24/14 UA Mucus) 1:24 PM) [facility] AND [id number] 19:24:00 Test Item Value Reference Range Interpretation Comments UA WBC (test code = UA WBC) 0-2 /HPF [facility] AND [id number] 19:24:00 Test Item Value Reference Range Interpretation Comments UA RBC (test code = 0-2 /HPF See_Comment [Automa gaye message] The UA RBC) system which ge nerated this result tra nsmitted reference range : <=2. The reference range was not used to interpr et this result as satish l/abnormal. [facility] AND [id number] 19:24:00 Test Item Value Reference Range Interpretation Comments UA Leuk Est (test Moderate *ABN*(08/24/14 code = UA Leuk Est) 1:24 PM) [facility] AND [id number] 19:24:00 Test Item Value Reference Range Interpretation Comments UA Nitrite (test code Negative (08/24/14 1:24 = UA Nitrite) PM) [facility] AND [id number] 19:24:00 Test Item Value Reference Range Interpretation Comments UA Urobilinogen (test code = UA 0.2 0.1-1.0 Urobilinogen) [facility] AND [id number] 19:24:00 Test Item Value Reference Range Interpretation Comments UA Ketones (test code Negative *NA*(08/24/14 = UA Ketones) 1:24 PM) [facility] AND [id number] 19:24:00 Test Item Value Reference Range Interpretation Comments UA Blood (test code = Negative (08/24/14 1:24 UA Blood) PM) [facility] AND [id number] 19:24:00 Test Item Value Reference Range Interpretation Comments UA Bili (test code = Negative *NA*(08/24/14 UA Bili) 1:24 PM) [facility] AND [id number] 19:24:00 Test Item Value Reference Range Interpretation Comments UA Color (test code = Yellow *NA*(08/24/14 UA Color) 1:24 PM) [facility] AND [id number] 19:24:00 Test Item Value Reference Range Interpretation Comments UA Glucose (test code Negative (08/24/14 1:24 = UA Glucose) PM) [facility] AND [id number] 19:24:00 Test Item Value Reference Range Interpretation Comments UA Protein (test code Negative (08/24/14 1:24 = UA Protein) PM) [facility] AND [id number] 19:24:00 Test Item Value Reference Range Interpretation Comments UA pH (test code = UA pH) 6.0 1 5.0-8.0 [facility] AND [id number] 19:24:00 Test Item Value Reference Range Interpretation Comments UA Spec Grav (test code *NA*(08/24/14 1:24 PM) = UA Spec Grav) [facility] AND [id number] 19:24:00 Test Item Value Reference Range Interpretation Comments UA Turbidity (test code = Clear (08/24/14 1:24 UA Turbidity) PM) [facility]2015-01-12 19:24:00 Test Item Value Reference Range Interpretation Comments Lipase Lvl (test code = Lipase Lvl) 104 73-393 [facility]2015-01-12 19:24:00 Test Item Value Reference Range Interpretation Comments eGFR (test code = eGFR) 109 [facility]2015-01-12 19:24:00 Test Item Value Reference Range Interpretation Comments Bili Total (test code = Bili Total) 0.6 0.2-1.3 [facility]2015-01-12 19:24:00 Test Item Value Reference Range Interpretation Comments Alk Phos (test code = Alk Phos) 72 39-136 [facility]2015-01-12 19:24:00 Test Item Value Reference Range Interpretation Comments Calcium Lvl (test code = Calcium Lvl) 8.8 8.5-10.5 [facility]2015-01-12 19:24:00 Test Item Value Reference Range Interpretation Comments CO2 (test code = CO2) 28 24-32 [facility]2015-01-12 19:24:00 Test Item Value Reference Range Interpretation Comments Chloride Lvl (test code = Chloride Lvl) 107 95-109 [place] [id number] 19:24:00 Test Item Value Reference Range Interpretation Comments Potassium Lvl (test code = Potassium 3.9 3.5-5.1 Lvl) [facility]2015-01-12 19:24:00 Test Item Value Reference Range Interpretation Comments Glucose Lvl (test code = Glucose Lvl) 90 70-99 [facility]2015-01-12 19:24:00 Test Item Value Reference Range Interpretation Comments Sodium Lvl (test code = Sodium Lvl) 138 135-145 [facility]2015-01-12 19:24:00 Test Item Value Reference Range Interpretation Comments BUN (test code = BUN) 7 7-22 [facility]2015-01-12 19:24:00 Test Item Value Reference Range Interpretation Comments Creatinine Lvl (test code = Creatinine 0.7 0.5-1.4 Lvl) [facility]2015-01-12 19:24:00 Test Item Value Reference Range Interpretation Comments ALT (test code = ALT) 23 See_Comment [Auto mated message] The system which ge nerated this result transmit gaye reference range : <=65. The reference range was not used to interpr et this result as satish l/abnormal. [facility]2015-01-12 19:24:00 Test Item Value Reference Range Interpretation Comments AST (test code = AST) 12 See_Comment [Auto mated message] The system which ge nerated this result transmit gaye reference range : <=37. The reference range was not used to interpr et this result as satish l/abnormal. [facility]2015-01-12 19:24:00 Test Item Value Reference Range Interpretation Comments Albumin Lvl (test code = Albumin Lvl) 3.8 3.5-5.0 [facility]2015-01-12 19:24:00 Test Item Value Reference Range Interpretation Comments Total Protein (test code = Total 8.0 6.4-8.4 Protein) [facility]2015-01-12 19:24:00 Test Item Value Reference Range Interpretation Comments A/G Ratio (test code = A/G Ratio) 0.9 0.7-1.6 [facility]2015-01-12 19:24:00 Test Item Value Reference Range Interpretation Comments AGAP (test code = AGAP) 6.9 10.0-20.0 [facility] [id number] 19:24:00 Test Item Value Reference Range Interpretation Comments B/C Ratio (test code = B/C Ratio) 10 6-25 [facility] [id number] 19:24:00 Test Item Value Reference Range Interpretation Comments Globulin (test code = Globulin) 4.2 2.0-4.0 [id number] 19:24:00 Test Item Value Reference Range Interpretation Comments S Preg (test code = S Negative *NA*(08/24/14 Preg) 1:24 PM) [facility]XxkiygyPOYTNQNHAK8186-05-94 19:24:00 Test Item Value Reference Range Interpretation Comments WBC (test code = WBC) 11.3 3.7-10.4 [facility] Cent[id number] 19:24:00 Test Item Value Reference Range Interpretation Comments RBC (test code = RBC) 4.75 4.20-5.40 [facility] CenterNkhedcpHMGJWKWZBB5757-56-92 19:24:00 Test Item Value Reference Range Interpretation Comments Platelet (test code = Platelet) 402 133-450 [facility] CenterYicfahtBALAOMUFYJ3671-09-86 19:24:00 Test Item Value Reference Range Interpretation Comments MCV (test code = MCV) 89.9 80.0-98.0 [facility] CenterEskyszkEWKZBVABUF5681-48-45 19:24:00 Test Item Value Reference Range Interpretation Comments Hct (test code = Hct) 42.7 36.0-48.0 [facility] C[id number] 19:24:00 Test Item Value Reference Range Interpretation Comments Hgb (test code = Hgb) 14.5 12.0-16.0 [facility] CenterJouqbcrCHJUGAXYIZ7660-00-29 19:24:00 Test Item Value Reference Range Interpretation Comments RDW (test code = RDW) 13.5 11.5-14.5 [facility] CenterAnlpgxkVNMAHJEVNH8785-97-27 19:24:00 Test Item Value Reference Range Interpretation Comments MCHC (test code = MCHC) 34.0 32.0-36.0 [facility] [id number] 19:24:00 Test Item Value Reference Range Interpretation Comments MCH (test code = MCH) 30.6 pg 27.0-31.0 [facility] Cent[id number] 19:24:00 Test Item Value Reference Range Interpretation Comments MPV (test code = MPV) 8.1 7.4-10.4 [facility] Cent[id number] 19:24:00 Test Item Value Reference Range Interpretation Comments Stomatocyte (test code = Stomatocyte) [id number] 19:24:00 Test Item Value Reference Range Interpretation Comments Basophils # (test code 0.1 See_Comment [Aut omated message] The = Basophils #) system which generated this result tra nsmitted reference range : <=0.2. The reference r ozzy was not used to int erpret this result as normal/abnormal . [facility] [id number] 19:24:00 Test Item Value Reference Range Interpretation Comments Eosinophils # (test code 0.2 See_Comment [A utomated message] The = Eosinophils #) system whic h generated this result tra nsmitted reference range : <=0.5. The reference r ozzy was not used to int erpret this result as normal/abnormal . [facility] Cent[id number] 19:24:00 Test Item Value Reference Range Interpretation Comments Hypochrom (test code = 1+ (08/24/14 1:24 PM) Hypochrom) [facility] Cent[id number] 19:24:00 Test Item Value Reference Range Interpretation Comments Lymphocytes # (test code = Lymphocytes 2.8 1.0-5.5 #) [facility] Cent[id number] 19:24:00 Test Item Value Reference Range Interpretation Comments Segs-Bands # (test code = Segs-Bands #) 8.1 1.5-8.1 [facility] Cent[id number] 19:24:00 Test Item Value Reference Range Interpretation Comments Monocytes # (test code 0.2 See_Comment [Aut omated message] The = Monocytes #) system which generated this result tra nsmitted reference range : <=0.8. The reference r ozzy was not used to int erpret this result as normal/abnormal . [facility] Cent[id number] 19:24:00 Test Item Value Reference Range Interpretation Comments Lymphocytes (test code = Lymphocytes) 24.5 20.0-40.0 [facility] CenterWamjpyeSAPOLTWYUK3503-92-12 19:24:00 Test Item Value Reference Range Interpretation Comments Segs (test code = Segs) 71.8 45.0-75.0 [facility] Cent[id number] 19:24:00 Test Item Value Reference Range Interpretation Comments Basophils (test code = 0.6 See_Comment [Aut omated message] The Basophils) system which ge nerated this result tra nsmitted reference range : <=1.0. The reference r ozzy was not used to int erpret this result as normal/abnormal . [facility] Cent[id number] 19:24:00 Test Item Value Reference Range Interpretation Comments Monocytes (test code = Monocytes) 1.5 2.0-12.0 [facility] Cent[id number] 19:24:00 Test Item Value Reference Range Interpretation Comments Eosinophils (test code = 1.6 See_Comment [A utomated message] The Eosinophils) system which ge nerated this result tra nsmitted reference range : <=4.0. The reference r ozzy was not used to int erpret this result as normal/abnormal . [facility] Cent[id number] 19:24:00 Test Item Value Reference Range Interpretation Comments Plt Morph (test code = Normal (08/24/14 1:24 Plt Morph) PM) [facility] AND [id number] 19:24:00 Test Item Value Reference Range Interpretation Comments UA Sq Epi (test code = UA Sq Occasional /LPF Epi) [facility] AND [id number] 19:24:00 Test Item Value Reference Range Interpretation Comments UA Bacteria (test code = UA Occasional /HPF Bacteria) [facility] AND [id number] 19:24:00 Test Item Value Reference Range Interpretation Comments UA Mucus (test code = None Seen (08/24/14 UA Mucus) 1:24 PM) [facility] AND [id number] 19:24:00 Test Item Value Reference Range Interpretation Comments UA WBC (test code = UA WBC) 0-2 /HPF [facility] AND [id number] 19:24:00 Test Item Value Reference Range Interpretation Comments UA RBC (test code = 0-2 /HPF See_Comment [Automa gaye message] The UA RBC) system which ge nerated this result tra nsmitted reference range : <=2. The reference range was not used to interpr et this result as satish l/abnormal. [facility] AND [id number] 19:24:00 Test Item Value Reference Range Interpretation Comments UA Leuk Est (test Moderate *ABN*(08/24/14 code = UA Leuk Est) 1:24 PM) [facility] AND [id number] 19:24:00 Test Item Value Reference Range Interpretation Comments UA Nitrite (test code Negative (08/24/14 1:24 = UA Nitrite) PM) [facility] AND [id number] 19:24:00 Test Item Value Reference Range Interpretation Comments UA Urobilinogen (test code = UA 0.2 0.1-1.0 Urobilinogen) [facility] AND [id number] 19:24:00 Test Item Value Reference Range Interpretation Comments UA Ketones (test code Negative *NA*(08/24/14 = UA Ketones) 1:24 PM) [facility] AND [id number] 19:24:00 Test Item Value Reference Range Interpretation Comments UA Blood (test code = Negative (08/24/14 1:24 UA Blood) PM) [facility] AND [id number] 19:24:00 Test Item Value Reference Range Interpretation Comments UA Bili (test code = Negative *NA*(08/24/14 UA Bili) 1:24 PM) [facility] AND [id number] 19:24:00 Test Item Value Reference Range Interpretation Comments UA Color (test code = Yellow *NA*(08/24/14 UA Color) 1:24 PM) [facility] AND [id number] 19:24:00 Test Item Value Reference Range Interpretation Comments UA Glucose (test code Negative (08/24/14 1:24 = UA Glucose) PM) [facility] AND [id number] 19:24:00 Test Item Value Reference Range Interpretation Comments UA Protein (test code Negative (08/24/14 1:24 = UA Protein) PM) [facility] AND [id number] 19:24:00 Test Item Value Reference Range Interpretation Comments UA pH (test code = UA pH) 6.0 1 5.0-8.0 [facility] AND [id number] 19:24:00 Test Item Value Reference Range Interpretation Comments UA Spec Grav (test code *NA*(08/24/14 1:24 PM) = UA Spec Grav) [facility] AND [id number] 19:24:00 Test Item Value Reference Range Interpretation Comments UA Turbidity (test code = Clear (08/24/14 1:24 UA Turbidity) PM) [facility]2015-01-12 19:24:00 Test Item Value Reference Range Interpretation Comments Lipase Lvl (test code = Lipase Lvl) 104 73-393 [facility]2015-01-12 19:24:00 Test Item Value Reference Range Interpretation Comments eGFR (test code = eGFR) 109 [facility]2015-01-12 19:24:00 Test Item Value Reference Range Interpretation Comments Bili Total (test code = Bili Total) 0.6 0.2-1.3 [facility]2015-01-12 19:24:00 Test Item Value Reference Range Interpretation Comments Alk Phos (test code = Alk Phos) 72 39-136 [facility]2015-01-12 19:24:00 Test Item Value Reference Range Interpretation Comments Calcium Lvl (test code = Calcium Lvl) 8.8 8.5-10.5 [facility]2015-01-12 19:24:00 Test Item Value Reference Range Interpretation Comments CO2 (test code = CO2) 28 24-32 [facility]2015-01-12 19:24:00 Test Item Value Reference Range Interpretation Comments Chloride Lvl (test code = Chloride Lvl) 107 95-109 [facility]2015-01-12 19:24:00 Test Item Value Reference Range Interpretation Comments Potassium Lvl (test code = Potassium 3.9 3.5-5.1 Lvl) [facility]2015-01-12 19:24:00 Test Item Value Reference Range Interpretation Comments Glucose Lvl (test code = Glucose Lvl) 90 70-99 [facility]2015-01-12 19:24:00 Test Item Value Reference Range Interpretation Comments Sodium Lvl (test code = Sodium Lvl) 138 135-145 [facility]2015-01-12 19:24:00 Test Item Value Reference Range Interpretation Comments BUN (test code = BUN) 7 7-22 [facility]2015-01-12 19:24:00 Test Item Value Reference Range Interpretation Comments Creatinine Lvl (test code = Creatinine 0.7 0.5-1.4 Lvl) [facility]2015-01-12 19:24:00 Test Item Value Reference Range Interpretation Comments ALT (test code = ALT) 23 See_Comment [Auto mated message] The system which ge nerated this result transmit gaye reference range : <=65. The reference range was not used to interpr et this result as satish l/abnormal. [facility]2015-01-12 19:24:00 Test Item Value Reference Range Interpretation Comments AST (test code = AST) 12 See_Comment [Auto mated message] The system which ge nerated this result transmit gaye reference range : <=37. The reference range was not used to interpr et this result as satish l/abnormal. [facility]2015-01-12 19:24:00 Test Item Value Reference Range Interpretation Comments Albumin Lvl (test code = Albumin Lvl) 3.8 3.5-5.0 [facility]2015-01-12 19:24:00 Test Item Value Reference Range Interpretation Comments Total Protein (test code = Total 8.0 6.4-8.4 Protein) [facility]2015-01-12 19:24:00 Test Item Value Reference Range Interpretation Comments A/G Ratio (test code = A/G Ratio) 0.9 0.7-1.6 [facility]2015-01-12 19:24:00 Test Item Value Reference Range Interpretation Comments AGAP (test code = AGAP) 6.9 10.0-20.0 [facility]2015-01-12 19:24:00 Test Item Value Reference Range Interpretation Comments B/C Ratio (test code = B/C Ratio) 10 6-25 [facility]2015-01-12 19:24:00 Test Item Value Reference Range Interpretation Comments Globulin (test code = Globulin) 4.2 2.0-4.0 [facility]CI[facility]21[facility]-77 19:24:00 Test Item Value Reference Range Interpretation Comments S Preg (test code = S Negative *NA*(08/24/14 Preg) 1:24 PM) [id number] 19:24:00 Test Item Value Reference Range Interpretation Comments WBC (test code = WBC) 11.3 3.7-10.4 [facility] Cent[id number] 19:24:00 Test Item Value Reference Range Interpretation Comments RBC (test code = RBC) 4.75 4.20-5.40 [facility] Cent[id number] 19:24:00 Test Item Value Reference Range Interpretation Comments Platelet (test code = Platelet) 402 133-450 [facility] Cent[id number] 19:24:00 Test Item Value Reference Range Interpretation Comments MCV (test code = MCV) 89.9 80.0-98.0 [facility] CenterDccahxcKZZYRSORRI4858-58-71 19:24:00 Test Item Value Reference Range Interpretation Comments Hct (test code = Hct) 42.7 36.0-48.0 [facility] CenterMidmeepJASPBWYFCB2415-31-74 19:24:00 Test Item Value Reference Range Interpretation Comments Hgb (test code = Hgb) 14.5 12.0-16.0 [facility] CenterZutsfouPAUWWZDVQW2501-32-44 19:24:00 Test Item Value Reference Range Interpretation Comments RDW (test code = RDW) 13.5 11.5-14.5 [facility] Cent[id number] 19:24:00 Test Item Value Reference Range Interpretation Comments MCHC (test code = MCHC) 34.0 32.0-36.0 [facility] [id number] 19:24:00 Test Item Value Reference Range Interpretation Comments MCH (test code = MCH) 30.6 pg 27.0-31.0 [facility] CenterWevxirlGCNWMMVLTM2215-18-04 19:24:00 Test Item Value Reference Range Interpretation Comments MPV (test code = MPV) 8.1 7.4-10.4 [facility] Cent[id number] 19:24:00 Test Item Value Reference Range Interpretation Comments Stomatocyte (test code = Stomatocyte) [facility] Cent[id number] 19:24:00 Test Item Value Reference Range Interpretation Comments Basophils # (test code 0.1 See_Comment [Aut omated message] The = Basophils #) system which generated this result tra nsmitted reference range : <=0.2. The reference r ozzy was not used to int erpret this result as normal/abnormal . [facility] CenterGlkscvmFVULICZSEM9054-23-04 19:24:00 Test Item Value Reference Range Interpretation Comments Eosinophils # (test code 0.2 See_Comment [A utomated message] The = Eosinophils #) system whic h generated this result tra nsmitted reference range : <=0.5. The reference r ozzy was not used to int erpret this result as normal/abnormal . [facility] CenterIfzrgcsKNOGUCAIKT1105-36-24 19:24:00 Test Item Value Reference Range Interpretation Comments Hypochrom (test code = 1+ (08/24/14 1:24 PM) Hypochrom) [facility] CenterFwhxglwRZRWYTQLWF3313-25-04 19:24:00 Test Item Value Reference Range Interpretation Comments Lymphocytes # (test code = Lymphocytes 2.8 1.0-5.5 #) [facility] CenterPvvvogbMBLFYRTZDA7729-38-73 19:24:00 Test Item Value Reference Range Interpretation Comments Segs-Bands # (test code = Segs-Bands #) 8.1 1.5-8.1 [facility] Cent[id number] 19:24:00 Test Item Value Reference Range Interpretation Comments Monocytes # (test code 0.2 See_Comment [Aut omated message] The = Monocytes #) system which generated this result tra nsmitted reference range : <=0.8. The reference r ozzy was not used to int erpret this result as normal/abnormal . [facility] CenterNotrajpWGFWHBQPEP8864-36-41 19:24:00 Test Item Value Reference Range Interpretation Comments Lymphocytes (test code = Lymphocytes) 24.5 20.0-40.0 [facility] Cent[id number] 19:24:00 Test Item Value Reference Range Interpretation Comments Segs (test code = Segs) 71.8 45.0-75.0 [facility] CenterUgabvseEDOQLAYIFG7413-63-92 19:24:00 Test Item Value Reference Range Interpretation Comments Basophils (test code = 0.6 See_Comment [Aut omated message] The Basophils) system which ge nerated this result tra nsmitted reference range : <=1.0. The reference r ozzy was not used to int erpret this result as normal/abnormal . [facility] Cent[id number] 19:24:00 Test Item Value Reference Range Interpretation Comments Monocytes (test code = Monocytes) 1.5 2.0-12.0 [facility] CenterKowinhuTMNRBUDIJC7553-88-60 19:24:00 Test Item Value Reference Range Interpretation Comments Eosinophils (test code = 1.6 See_Comment [A utomated message] The Eosinophils) system which ge nerated this result tra nsmitted reference range : <=4.0. The reference r ozzy was not used to int erpret this result as normal/abnormal . [facility] CenterDiincjwWSDZVVERGY4073-26-26 19:24:00 Test Item Value Reference Range Interpretation Comments Plt Morph (test code = Normal (08/24/14 1:24 Plt Morph) PM) [facility] AND [id number] 19:24:00 Test Item Value Reference Range Interpretation Comments UA Sq Epi (test code = UA Sq Occasional /LPF Epi) [facility] AND [id number] 19:24:00 Test Item Value Reference Range Interpretation Comments UA Bacteria (test code = UA Occasional /HPF Bacteria) [facility] AND [id number] 19:24:00 Test Item Value Reference Range Interpretation Comments UA Mucus (test code = None Seen (08/24/14 UA Mucus) 1:24 PM) [facility] AND [id number] 19:24:00 Test Item Value Reference Range Interpretation Comments UA WBC (test code = UA WBC) 0-2 /HPF [facility] AND [id number] 19:24:00 Test Item Value Reference Range Interpretation Comments UA RBC (test code = 0-2 /HPF See_Comment [Automa gaye message] The UA RBC) system which ge nerated this result tra nsmitted reference range : <=2. The reference range was not used to interpr et this result as satish l/abnormal. [facility] AND [id number] 19:24:00 Test Item Value Reference Range Interpretation Comments UA Leuk Est (test Moderate *ABN*(08/24/14 code = UA Leuk Est) 1:24 PM) [facility] AND [id number] 19:24:00 Test Item Value Reference Range Interpretation Comments UA Nitrite (test code Negative (08/24/14 1:24 = UA Nitrite) PM) [facility] AND [id number] 19:24:00 Test Item Value Reference Range Interpretation Comments UA Urobilinogen (test code = UA 0.2 0.1-1.0 Urobilinogen) [facility] AND [id number] 19:24:00 Test Item Value Reference Range Interpretation Comments UA Ketones (test code Negative *NA*(08/24/14 = UA Ketones) 1:24 PM) [facility] AND [id number] 19:24:00 Test Item Value Reference Range Interpretation Comments UA Blood (test code = Negative (08/24/14 1:24 UA Blood) PM) [facility] AND [id number] 19:24:00 Test Item Value Reference Range Interpretation Comments UA Bili (test code = Negative *NA*(08/24/14 UA Bili) 1:24 PM) [facility] AND [id number] 19:24:00 Test Item Value Reference Range Interpretation Comments UA Color (test code = Yellow *NA*(08/24/14 UA Color) 1:24 PM) [facility] AND [id number] 19:24:00 Test Item Value Reference Range Interpretation Comments UA Glucose (test code Negative (08/24/14 1:24 = UA Glucose) PM) [facility] AND [id number] 19:24:00 Test Item Value Reference Range Interpretation Comments UA Protein (test code Negative (08/24/14 1:24 = UA Protein) PM) [facility] AND [id number] 19:24:00 Test Item Value Reference Range Interpretation Comments UA pH (test code = UA pH) 6.0 1 5.0-8.0 [facility] AND [id number] 19:24:00 Test Item Value Reference Range Interpretation Comments UA Spec Grav (test code *NA*(08/24/14 1:24 PM) = UA Spec Grav) [facility] AND [id number] 19:24:00 Test Item Value Reference Range Interpretation Comments UA Turbidity (test code = Clear (08/24/14 1:24 UA Turbidity) PM) [facility] [id number] 19:24:00 Test Item Value Reference Range Interpretation Comments Lipase Lvl (test code = Lipase Lvl) 104 73-393 [facility]2015-01-12 19:24:00 Test Item Value Reference Range Interpretation Comments eGFR (test code = eGFR) 109 [facility]2015-01-12 19:24:00 Test Item Value Reference Range Interpretation Comments Bili Total (test code = Bili Total) 0.6 0.2-1.3 [facility]2015-01-12 19:24:00 Test Item Value Reference Range Interpretation Comments Alk Phos (test code = Alk Phos) 72 39-136 [facility]2015-01-12 19:24:00 Test Item Value Reference Range Interpretation Comments Calcium Lvl (test code = Calcium Lvl) 8.8 8.5-10.5 [facility]2015-01-12 19:24:00 Test Item Value Reference Range Interpretation Comments CO2 (test code = CO2) 28 24-32 [facility]2015-01-12 19:24:00 Test Item Value Reference Range Interpretation Comments Chloride Lvl (test code = Chloride Lvl) 107 95-109 [facility]2015-01-12 19:24:00 Test Item Value Reference Range Interpretation Comments Potassium Lvl (test code = Potassium 3.9 3.5-5.1 Lvl) [facility]2015-01-12 19:24:00 Test Item Value Reference Range Interpretation Comments Glucose Lvl (test code = Glucose Lvl) 90 70-99 [facility]2015-01-12 19:24:00 Test Item Value Reference Range Interpretation Comments Sodium Lvl (test code = Sodium Lvl) 138 135-145 [facility]2015-01-12 19:24:00 Test Item Value Reference Range Interpretation Comments BUN (test code = BUN) 7 7-22 [facility]2015-01-12 19:24:00 Test Item Value Reference Range Interpretation Comments Creatinine Lvl (test code = Creatinine 0.7 0.5-1.4 Lvl) [facility]2015-01-12 19:24:00 Test Item Value Reference Range Interpretation Comments ALT (test code = ALT) 23 See_Comment [Auto mated message] The system which ge nerated this result transmit gaye reference range : <=65. The reference range was not used to interpr et this result as satish l/abnormal. [facility]2015-01-12 19:24:00 Test Item Value Reference Range Interpretation Comments AST (test code = AST) 12 See_Comment [Auto mated message] The system which ge nerated this result transmit gaye reference range : <=37. The reference range was not used to interpr et this result as satish l/abnormal. [facility]2015-01-12 19:24:00 Test Item Value Reference Range Interpretation Comments Albumin Lvl (test code = Albumin Lvl) 3.8 3.5-5.0 [facility]2015-01-12 19:24:00 Test Item Value Reference Range Interpretation Comments Total Protein (test code = Total 8.0 6.4-8.4 Protein) [facility]2015-01-12 19:24:00 Test Item Value Reference Range Interpretation Comments A/G Ratio (test code = A/G Ratio) 0.9 0.7-1.6 [facility]2015-01-12 19:24:00 Test Item Value Reference Range Interpretation Comments AGAP (test code = AGAP) 6.9 10.0-20.0 [facility]2015-01-12 19:24:00 Test Item Value Reference Range Interpretation Comments B/C Ratio (test code = B/C Ratio) 10 6-25 [facility]2015-01-12 19:24:00 Test Item Value Reference Range Interpretation Comments Globulin (test code = Globulin) 4.2 2.0-4.[address] [facility] HospitalW[id number] 19:24:00 Test Item Value Reference Range Interpretation Comments S Preg (test code = S Negative *NA*(08/24/14 Preg) 1:24 PM) [facility]VtdkuczXZGBMFTGCO8101-02-24 19:24:00 Test Item Value Reference Range Interpretation Comments WBC (test code = WBC) 11.3 3.7-10.4 [facility] CenterMjumlpkWXJWCKFQWB5772-98-30 19:24:00 Test Item Value Reference Range Interpretation Comments RBC (test code = RBC) 4.75 4.20-5.40 [facility] CenterIahdswpCFHCVUXXNJ5716-21-73 19:24:00 Test Item Value Reference Range Interpretation Comments Platelet (test code = Platelet) 402 133-450 [facility] CenterRxtjrdmESWNPKGOZF5859-54-76 19:24:00 Test Item Value Reference Range Interpretation Comments MCV (test code = MCV) 89.9 80.0-98.0 [place] [id number] 19:24:00 Test Item Value Reference Range Interpretation Comments Hct (test code = Hct) 42.7 36.0-48.0 [facility] CenterGivnhxbZUMLCEXHPK1768-34-18 19:24:00 Test Item Value Reference Range Interpretation Comments Hgb (test code = Hgb) 14.5 12.0-16.0 [facility] CenterEzujyrcGBPLPMMFVD9882-75-04 19:24:00 Test Item Value Reference Range Interpretation Comments RDW (test code = RDW) 13.5 11.5-14.5 [place] [id number] 19:24:00 Test Item Value Reference Range Interpretation Comments MCHC (test code = MCHC) 34.0 32.0-36.0 [facility] CenterJylbsynFYSGRIWHPW5448-49-15 19:24:00 Test Item Value Reference Range Interpretation Comments MCH (test code = MCH) 30.6 pg 27.0-31.0 [facility] CenterWamhoflDURRIVDTBG0906-64-10 19:24:00 Test Item Value Reference Range Interpretation Comments MPV (test code = MPV) 8.1 7.4-10.4 [facility] CenterQrcsnkbBGTTTKHXGQ2673-17-52 19:24:00 Test Item Value Reference Range Interpretation Comments Stomatocyte (test code = Stomatocyte) [facility] CenterKknhggvWRXSUAEXOF3227-66-36 19:24:00 Test Item Value Reference Range Interpretation Comments Basophils # (test code 0.1 See_Comment [Aut omated message] The = Basophils #) system which generated this result tra nsmitted reference range : <=0.2. The reference r ozzy was not used to int erpret this result as normal/abnormal . [facility] CenterNsuulqzLPMWGTETWE5671-66-72 19:24:00 Test Item Value Reference Range Interpretation Comments Eosinophils # (test code 0.2 See_Comment [A utomated message] The = Eosinophils #) system whic h generated this result tra nsmitted reference range : <=0.5. The reference r ozzy was not used to int erpret this result as normal/abnormal . [facility] CenterLljzphwLQBNVNEOBH5915-57-89 19:24:00 Test Item Value Reference Range Interpretation Comments Hypochrom (test code = 1+ (08/24/14 1:24 PM) Hypochrom) [facility] Cent[id number] 19:24:00 Test Item Value Reference Range Interpretation Comments Lymphocytes # (test code = Lymphocytes 2.8 1.0-5.5 #) [facility] Cent[id number] 19:24:00 Test Item Value Reference Range Interpretation Comments Segs-Bands # (test code = Segs-Bands #) 8.1 1.5-8.1 [id number] 19:24:00 Test Item Value Reference Range Interpretation Comments Monocytes # (test code 0.2 See_Comment [Aut omated message] The = Monocytes #) system which generated this result tra nsmitted reference range : <=0.8. The reference r ozzy was not used to int erpret this result as normal/abnormal . [facility] CenterYsiogbkIFZHFYJGNL0627-87-14 19:24:00 Test Item Value Reference Range Interpretation Comments Lymphocytes (test code = Lymphocytes) 24.5 20.0-40.0 [facility] CenterGpspwkhXDVPTNNWSK0561-03-64 19:24:00 Test Item Value Reference Range Interpretation Comments Segs (test code = Segs) 71.8 45.0-75.0 [facility] CenterKxrjcvbVHRARVWFMG1352-25-04 19:24:00 Test Item Value Reference Range Interpretation Comments Basophils (test code = 0.6 See_Comment [Aut omated message] The Basophils) system which ge nerated this result tra nsmitted reference range : <=1.0. The reference r ozzy was not used to int erpret this result as normal/abnormal . [facility] CenterFzytunaWQMYZRKMFC0975-27-77 19:24:00 Test Item Value Reference Range Interpretation Comments Monocytes (test code = Monocytes) 1.5 2.0-12.0 [facility] CenterWwszfsrNBJWDKVSRJ4420-08-79 19:24:00 Test Item Value Reference Range Interpretation Comments Eosinophils (test code = 1.6 See_Comment [A utomated message] The Eosinophils) system which ge nerated this result tra nsmitted reference range : <=4.0. The reference r ozzy was not used to int erpret this result as normal/abnormal . [facility]pthuwcOSUBNEXGSJ8791-11-12 19:24:00 Test Item Value Reference Range Interpretation Comments Plt Morph (test code = Normal (08/24/14 1:24 Plt Morph) PM) [facility] AND [id number] 19:24:00 Test Item Value Reference Range Interpretation Comments UA Sq Epi (test code = UA Sq Occasional /LPF Epi) [facility] AND [id number] 19:24:00 Test Item Value Reference Range Interpretation Comments UA Bacteria (test code = UA Occasional /HPF Bacteria) [facility] AND [id number] 19:24:00 Test Item Value Reference Range Interpretation Comments UA Mucus (test code = None Seen (08/24/14 UA Mucus) 1:24 PM) [facility] AND [id number] 19:24:00 Test Item Value Reference Range Interpretation Comments UA WBC (test code = UA WBC) 0-2 /HPF [facility] AND [id number] 19:24:00 Test Item Value Reference Range Interpretation Comments UA RBC (test code = 0-2 /HPF See_Comment [Automa gaye message] The UA RBC) system which ge nerated this result tra nsmitted reference range : <=2. The reference range was not used to interpr et this result as satish l/abnormal. [facility] AND [id number] 19:24:00 Test Item Value Reference Range Interpretation Comments UA Leuk Est (test Moderate *ABN*(08/24/14 code = UA Leuk Est) 1:24 PM) [facility] AND [id number] 19:24:00 Test Item Value Reference Range Interpretation Comments UA Nitrite (test code Negative (08/24/14 1:24 = UA Nitrite) PM) [facility] AND [id number] 19:24:00 Test Item Value Reference Range Interpretation Comments UA Urobilinogen (test code = UA 0.2 0.1-1.0 Urobilinogen) [facility] AND [id number] 19:24:00 Test Item Value Reference Range Interpretation Comments UA Ketones (test code Negative *NA*(08/24/14 = UA Ketones) 1:24 PM) [facility] AND [id number] 19:24:00 Test Item Value Reference Range Interpretation Comments UA Blood (test code = Negative (08/24/14 1:24 UA Blood) PM) [facility] AND [id number] 19:24:00 Test Item Value Reference Range Interpretation Comments UA Bili (test code = Negative *NA*(08/24/14 UA Bili) 1:24 PM) [facility] AND [id number] 19:24:00 Test Item Value Reference Range Interpretation Comments UA Color (test code = Yellow *NA*(08/24/14 UA Color) 1:24 PM) [facility] AND [id number] 19:24:00 Test Item Value Reference Range Interpretation Comments UA Glucose (test code Negative (08/24/14 1:24 = UA Glucose) PM) [facility] AND [id number] 19:24:00 Test Item Value Reference Range Interpretation Comments UA Protein (test code Negative (08/24/14 1:24 = UA Protein) PM) [facility] AND [id number] 19:24:00 Test Item Value Reference Range Interpretation Comments UA pH (test code = UA pH) 6.0 1 5.0-8.0 [facility] AND [id number] 19:24:00 Test Item Value Reference Range Interpretation Comments UA Spec Grav (test code *NA*(08/24/14 1:24 PM) = UA Spec Grav) [facility] AND [id number] 19:24:00 Test Item Value Reference Range Interpretation Comments UA Turbidity (test code = Clear (08/24/14 1:24 UA Turbidity) PM) [facility] [id number] 19:24:00 Test Item Value Reference Range Interpretation Comments Lipase Lvl (test code = Lipase Lvl) 104 73-393 [facility] [id number] 19:24:00 Test Item Value Reference Range Interpretation Comments eGFR (test code = eGFR) 109 [facility] [id number] 19:24:00 Test Item Value Reference Range Interpretation Comments Bili Total (test code = Bili Total) 0.6 0.2-1.3 [facility]2015-01-12 19:24:00 Test Item Value Reference Range Interpretation Comments Alk Phos (test code = Alk Phos) 72 39-136 [facility]2015-01-12 19:24:00 Test Item Value Reference Range Interpretation Comments Calcium Lvl (test code = Calcium Lvl) 8.8 8.5-10.5 [place] [id number] 19:24:00 Test Item Value Reference Range Interpretation Comments CO2 (test code = CO2) 28 24-32 [facility]2015-01-12 19:24:00 Test Item Value Reference Range Interpretation Comments Chloride Lvl (test code = Chloride Lvl) 107 95-109 [facility]2015-01-12 19:24:00 Test Item Value Reference Range Interpretation Comments Potassium Lvl (test code = Potassium 3.9 3.5-5.1 Lvl) [facility]2015-01-12 19:24:00 Test Item Value Reference Range Interpretation Comments Glucose Lvl (test code = Glucose Lvl) 90 70-99 [facility]2015-01-12 19:24:00 Test Item Value Reference Range Interpretation Comments Sodium Lvl (test code = Sodium Lvl) 138 135-145 [facility]2015-01-12 19:24:00 Test Item Value Reference Range Interpretation Comments BUN (test code = BUN) 7 7-22 [facility]2015-01-12 19:24:00 Test Item Value Reference Range Interpretation Comments Creatinine Lvl (test code = Creatinine 0.7 0.5-1.4 Lvl) [place] [id number] 19:24:00 Test Item Value Reference Range Interpretation Comments ALT (test code = ALT) 23 See_Comment [Auto mated message] The system which ge nerated this result transmit gaye reference range : <=65. The reference range was not used to interpr et this result as satish l/abnormal. [facility]2015-01-12 19:24:00 Test Item Value Reference Range Interpretation Comments AST (test code = AST) 12 See_Comment [Auto mated message] The system which ge nerated this result transmit gaye reference range : <=37. The reference range was not used to interpr et this result as satish l/abnormal. [facility]2015-01-12 19:24:00 Test Item Value Reference Range Interpretation Comments Albumin Lvl (test code = Albumin Lvl) 3.8 3.5-5.0 [facility]2015-01-12 19:24:00 Test Item Value Reference Range Interpretation Comments Total Protein (test code = Total 8.0 6.4-8.4 Protein) [facility]2015-01-12 19:24:00 Test Item Value Reference Range Interpretation Comments A/G Ratio (test code = A/G Ratio) 0.9 0.7-1.6 [facility]2015-01-12 19:24:00 Test Item Value Reference Range Interpretation Comments AGAP (test code = AGAP) 6.9 10.0-20.0 [facility]2015-01-12 19:24:00 Test Item Value Reference Range Interpretation Comments B/C Ratio (test code = B/C Ratio) 10 6-25 [facility]2015-01-12 19:24:00 Test Item Value Reference Range Interpretation Comments Globulin (test code = Globulin) 4.2 2.0-4.[address] [facility] [facility] HospitalRaaanrrMMZURIWWTRSHH8299-31-83 19:24:00 Test Item Value Reference Range Interpretation Comments S Preg (test code = S Negative *NA*(08/24/14 Preg) 1:24 PM) [facility]ZjsbeirCCEGLGPOIH8641-82-79 19:24:00 Test Item Value Reference Range Interpretation Comments WBC (test code = WBC) 11.3 3.7-10.4 [facility] CenterPygxfpySOJUXBQEDV2926-33-84 19:24:00 Test Item Value Reference Range Interpretation Comments RBC (test code = RBC) 4.75 4.20-5.40 [facility] CenterMnwfijjLXJCYHYYDZ8382-43-39 19:24:00 Test Item Value Reference Range Interpretation Comments Platelet (test code = Platelet) 402 133-450 [facility] CenterDcezazkRGZOSEATJS0659-10-09 19:24:00 Test Item Value Reference Range Interpretation Comments MCV (test code = MCV) 89.9 80.0-98.0 [facility] CenterSbrrgywJQVQSBQFUM5907-46-05 19:24:00 Test Item Value Reference Range Interpretation Comments Hct (test code = Hct) 42.7 36.0-48.0 [facility] CenterNswqbycJBURXTAWUW1012-65-55 19:24:00 Test Item Value Reference Range Interpretation Comments Hgb (test code = Hgb) 14.5 12.0-16.0 [facility] CenterZvtvdtdVLOUVZLTUV7514-49-38 19:24:00 Test Item Value Reference Range Interpretation Comments RDW (test code = RDW) 13.5 11.5-14.5 [facility] CenterKwjobyxWEFBXBRJFY0116-38-75 19:24:00 Test Item Value Reference Range Interpretation Comments MCHC (test code = MCHC) 34.0 32.0-36.0 [facility] CenterCkvulxoQQFYOASIJZ7405-79-87 19:24:00 Test Item Value Reference Range Interpretation Comments MCH (test code = MCH) 30.6 pg 27.0-31.0 [facility] CenterNqxppmuPGSYIBTPDF2470-18-60 19:24:00 Test Item Value Reference Range Interpretation Comments MPV (test code = MPV) 8.1 7.4-10.4 [facility] CenterHnwhzhoWQYLQJEHTX1880-84-17 19:24:00 Test Item Value Reference Range Interpretation Comments Stomatocyte (test code = Stomatocyte) [facility] CenterWbmolutTVSIQVOGBW7949-51-41 19:24:00 Test Item Value Reference Range Interpretation Comments Basophils # (test code 0.1 See_Comment [Aut omated message] The = Basophils #) system which generated this result tra nsmitted reference range : <=0.2. The reference r ozzy was not used to int erpret this result as normal/abnormal . [facility] CenterCgmhodrVUMAAFGHVD1863-06-63 19:24:00 Test Item Value Reference Range Interpretation Comments Eosinophils # (test code 0.2 See_Comment [A utomated message] The = Eosinophils #) system whic h generated this result tra nsmitted reference range : <=0.5. The reference r ozzy was not used to int erpret this result as normal/abnormal . [facility] CenterBsdnslnFFDVEUAWUC8573-69-43 19:24:00 Test Item Value Reference Range Interpretation Comments Hypochrom (test code = 1+ (08/24/14 1:24 PM) Hypochrom) [facility] CenterSphaekmGTMIZVQBGE4695-20-01 19:24:00 Test Item Value Reference Range Interpretation Comments Lymphocytes # (test code = Lymphocytes 2.8 1.0-5.5 #) [facility] CenterCqcksktFRAFDOMCYE0307-03-94 19:24:00 Test Item Value Reference Range Interpretation Comments Segs-Bands # (test code = Segs-Bands #) 8.1 1.5-8.1 [facility] CenterWiybbypZBWZDHNDJS9911-33-44 19:24:00 Test Item Value Reference Range Interpretation Comments Monocytes # (test code 0.2 See_Comment [Aut omated message] The = Monocytes #) system which generated this result tra nsmitted reference range : <=0.8. The reference r ozzy was not used to int erpret this result as normal/abnormal . [facility] CenterGastittGMJUMDRANR0384-71-07 19:24:00 Test Item Value Reference Range Interpretation Comments Lymphocytes (test code = Lymphocytes) 24.5 20.0-40.0 [facility] CenterNqfhxuqITTXLOPKRU7121-50-26 19:24:00 Test Item Value Reference Range Interpretation Comments Segs (test code = Segs) 71.8 45.0-75.0 [facility] CenterRixlurnJCOSAMCWQE5947-14-25 19:24:00 Test Item Value Reference Range Interpretation Comments Basophils (test code = 0.6 See_Comment [Aut omated message] The Basophils) system which ge nerated this result tra nsmitted reference range : <=1.0. The reference r ozzy was not used to int erpret this result as normal/abnormal . [facility] CenterKvwcwbtDQKRDNJIHE0631-97-41 19:24:00 Test Item Value Reference Range Interpretation Comments Monocytes (test code = Monocytes) 1.5 2.0-12.0 [facility] CenterDirugycPLQYANODGX7304-15-54 19:24:00 Test Item Value Reference Range Interpretation Comments Eosinophils (test code = 1.6 See_Comment [A utomated message] The Eosinophils) system which ge nerated this result tra nsmitted reference range : <=4.0. The reference r ozzy was not used to int erpret this result as normal/abnormal . [facility] CenterArvwrufQGKGSOCOBX1188-18-40 19:24:00 Test Item Value Reference Range Interpretation Comments Plt Morph (test code = Normal (08/24/14 1:24 Plt Morph) PM) [facility] AND [id number] 19:24:00 Test Item Value Reference Range Interpretation Comments UA Sq Epi (test code = UA Sq Occasional /LPF Epi) [facility] AND [id number] 19:24:00 Test Item Value Reference Range Interpretation Comments UA Bacteria (test code = UA Occasional /HPF Bacteria) [facility] AND [id number] 19:24:00 Test Item Value Reference Range Interpretation Comments UA Mucus (test code = None Seen (08/24/14 UA Mucus) 1:24 PM) [facility] AND [id number] 19:24:00 Test Item Value Reference Range Interpretation Comments UA WBC (test code = UA WBC) 0-2 /HPF [facility] [id number] 19:24:00 Test Item Value Reference Range Interpretation Comments UA RBC (test code = 0-2 /HPF See_Comment [Automa gaye message] The UA RBC) system which ge nerated this result tra nsmitted reference range : <=2. The reference range was not used to interpr et this result as satish l/abnormal. [facility] AND [id number] 19:24:00 Test Item Value Reference Range Interpretation Comments UA Leuk Est (test Moderate *ABN*(08/24/14 code = UA Leuk Est) 1:24 PM) [facility] AND [id number] 19:24:00 Test Item Value Reference Range Interpretation Comments UA Nitrite (test code Negative (08/24/14 1:24 = UA Nitrite) PM) [facility] AND [id number] 19:24:00 Test Item Value Reference Range Interpretation Comments UA Urobilinogen (test code = UA 0.2 0.1-1.0 Urobilinogen) [facility] AND [id number] 19:24:00 Test Item Value Reference Range Interpretation Comments UA Ketones (test code Negative *NA*(08/24/14 = UA Ketones) 1:24 PM) [facility] AND [id number] 19:24:00 Test Item Value Reference Range Interpretation Comments UA Blood (test code = Negative (08/24/14 1:24 UA Blood) PM) [facility] AND [id number] 19:24:00 Test Item Value Reference Range Interpretation Comments UA Bili (test code = Negative *NA*(08/24/14 UA Bili) 1:24 PM) [facility] AND [id number] 19:24:00 Test Item Value Reference Range Interpretation Comments UA Color (test code = Yellow *NA*(08/24/14 UA Color) 1:24 PM) [facility] AND [id number] 19:24:00 Test Item Value Reference Range Interpretation Comments UA Glucose (test code Negative (08/24/14 1:24 = UA Glucose) PM) [facility] AND [id number] 19:24:00 Test Item Value Reference Range Interpretation Comments UA Protein (test code Negative (08/24/14 1:24 = UA Protein) PM) [facility] AND [id number] 19:24:00 Test Item Value Reference Range Interpretation Comments UA pH (test code = UA pH) 6.0 1 5.0-8.0 [facility] AND [id number] 19:24:00 Test Item Value Reference Range Interpretation Comments UA Spec Grav (test code *NA*(08/24/14 1:24 PM) = UA Spec Grav) [facility] AND [id number] 19:24:00 Test Item Value Reference Range Interpretation Comments UA Turbidity (test code = Clear (08/24/14 1:24 UA Turbidity) PM) [facility]2015-01-12 19:24:00 Test Item Value Reference Range Interpretation Comments Lipase Lvl (test code = Lipase Lvl) 104 73-393 [facility]2015-01-12 19:24:00 Test Item Value Reference Range Interpretation Comments eGFR (test code = eGFR) 109 [facility]2015-01-12 19:24:00 Test Item Value Reference Range Interpretation Comments Bili Total (test code = Bili Total) 0.6 0.2-1.3 [facility]2015-01-12 19:24:00 Test Item Value Reference Range Interpretation Comments Alk Phos (test code = Alk Phos) 72 39-136 [facility]2015-01-12 19:24:00 Test Item Value Reference Range Interpretation Comments Calcium Lvl (test code = Calcium Lvl) 8.8 8.5-10.5 [facility]2015-01-12 19:24:00 Test Item Value Reference Range Interpretation Comments CO2 (test code = CO2) 28 24-32 [facility]2015-01-12 19:24:00 Test Item Value Reference Range Interpretation Comments Chloride Lvl (test code = Chloride Lvl) 107 95-109 [facility]2015-01-12 19:24:00 Test Item Value Reference Range Interpretation Comments Potassium Lvl (test code = Potassium 3.9 3.5-5.1 Lvl) [facility]2015-01-12 19:24:00 Test Item Value Reference Range Interpretation Comments Glucose Lvl (test code = Glucose Lvl) 90 70-99 [facility]2015-01-12 19:24:00 Test Item Value Reference Range Interpretation Comments Sodium Lvl (test code = Sodium Lvl) 138 135-145 [facility]2015-01-12 19:24:00 Test Item Value Reference Range Interpretation Comments BUN (test code = BUN) 7 7-22 [facility]2015-01-12 19:24:00 Test Item Value Reference Range Interpretation Comments Creatinine Lvl (test code = Creatinine 0.7 0.5-1.4 Lvl) [facility]2015-01-12 19:24:00 Test Item Value Reference Range Interpretation Comments ALT (test code = ALT) 23 See_Comment [Auto mated message] The system which ge nerated this result transmit gaye reference range : <=65. The reference range was not used to interpr et this result as satish l/abnormal. [facility]2015-01-12 19:24:00 Test Item Value Reference Range Interpretation Comments AST (test code = AST) 12 See_Comment [Auto mated message] The system which ge nerated this result transmit gaye reference range : <=37. The reference range was not used to interpr et this result as satish l/abnormal. [facility]2015-01-12 19:24:00 Test Item Value Reference Range Interpretation Comments Albumin Lvl (test code = Albumin Lvl) 3.8 3.5-5.0 [facility]2015-01-12 19:24:00 Test Item Value Reference Range Interpretation Comments Total Protein (test code = Total 8.0 6.4-8.4 Protein) [facility]2015-01-12 19:24:00 Test Item Value Reference Range Interpretation Comments A/G Ratio (test code = A/G Ratio) 0.9 0.7-1.6 [place] [id number] 19:24:00 Test Item Value Reference Range Interpretation Comments AGAP (test code = AGAP) 6.9 10.0-20.0 [facility]2015-01-12 19:24:00 Test Item Value Reference Range Interpretation Comments B/C Ratio (test code = B/C Ratio) 10 6-25 [facility]2015-01-12 19:24:00 Test Item Value Reference Range Interpretation Comments Globulin (test code = Globulin) 4.2 2.0-4.[address] [facility] [facility]E[id number] 19:24:00 Test Item Value Reference Range Interpretation Comments S Preg (test code = S Negative *NA*(08/24/14 Preg) 1:24 PM) [facility]QpsytpyNZHDGMTZTC7638-01-86 19:24:00 Test Item Value Reference Range Interpretation Comments WBC (test code = WBC) 11.3 3.7-10.4 [facility] CenterZvzdfxkOSOQIIVOND7715-15-70 19:24:00 Test Item Value Reference Range Interpretation Comments RBC (test code = RBC) 4.75 4.20-5.40 [facility] CenterSihzzqzZQGNMPKAPB1119-95-79 19:24:00 Test Item Value Reference Range Interpretation Comments Platelet (test code = Platelet) 402 133-450 [facility] CenterRlqrhkhHCTJWBWGYE3388-84-25 19:24:00 Test Item Value Reference Range Interpretation Comments MCV (test code = MCV) 89.9 80.0-98.0 [facility] CenterPnmetrxMTCKLRVIEW5614-83-41 19:24:00 Test Item Value Reference Range Interpretation Comments Hct (test code = Hct) 42.7 36.0-48.0 [facility] CenterSzyzrxsYXNZJZXDQH1718-03-01 19:24:00 Test Item Value Reference Range Interpretation Comments Hgb (test code = Hgb) 14.5 12.0-16.0 [facility] CenterXfdjjtgAIKTTWROWQ1280-14-61 19:24:00 Test Item Value Reference Range Interpretation Comments RDW (test code = RDW) 13.5 11.5-14.5 [facility] CenterBsblgcnVRIRRZMSLT0292-52-05 19:24:00 Test Item Value Reference Range Interpretation Comments MCHC (test code = MCHC) 34.0 32.0-36.0 [facility] CenterHdgnrbgDXCTTGREJD8569-74-47 19:24:00 Test Item Value Reference Range Interpretation Comments MCH (test code = MCH) 30.6 pg 27.0-31.0 [facility] CenterXffsmjbUWVPALPODP8837-21-58 19:24:00 Test Item Value Reference Range Interpretation Comments MPV (test code = MPV) 8.1 7.4-10.4 [facility] CenterZfmknulMFIIVJFPQU9959-47-90 19:24:00 Test Item Value Reference Range Interpretation Comments Stomatocyte (test code = Stomatocyte) [facility] CenterDucqyygTVTBWGNWOD7187-53-34 19:24:00 Test Item Value Reference Range Interpretation Comments Basophils # (test code 0.1 See_Comment [Aut omated message] The = Basophils #) system which generated this result tra nsmitted reference range : <=0.2. The reference r ozzy was not used to int erpret this result as normal/abnormal . [facility] CenterFimwailJZUGBSGVGM1512-19-24 19:24:00 Test Item Value Reference Range Interpretation Comments Eosinophils # (test code 0.2 See_Comment [A utomated message] The = Eosinophils #) system whic h generated this result tra nsmitted reference range : <=0.5. The reference r ozzy was not used to int erpret this result as normal/abnormal . [facility] CenterVexvvaiVCBQDMSDJS2467-71-62 19:24:00 Test Item Value Reference Range Interpretation Comments Hypochrom (test code = 1+ (08/24/14 1:24 PM) Hypochrom) [facility] CenterEhskvaxOEWAADLVIR2126-34-02 19:24:00 Test Item Value Reference Range Interpretation Comments Lymphocytes # (test code = Lymphocytes 2.8 1.0-5.5 #) [facility] CenterFaujqvwKMFPGADZAS2928-60-57 19:24:00 Test Item Value Reference Range Interpretation Comments Segs-Bands # (test code = Segs-Bands #) 8.1 1.5-8.1 [facility] CenterTfmpvjdODMEGTKJLJ1640-32-18 19:24:00 Test Item Value Reference Range Interpretation Comments Monocytes # (test code 0.2 See_Comment [Aut omated message] The = Monocytes #) system which generated this result tra nsmitted reference range : <=0.8. The reference r ozzy was not used to int erpret this result as normal/abnormal . [facility] CenterBovgolsHMMQYTUAMY7752-50-92 19:24:00 Test Item Value Reference Range Interpretation Comments Lymphocytes (test code = Lymphocytes) 24.5 20.0-40.0 [facility] CenterXhdrtswQOCZYWMDON1473-38-16 19:24:00 Test Item Value Reference Range Interpretation Comments Segs (test code = Segs) 71.8 45.0-75.0 [facility] CenterZxkiyzySADFWCLKFB7661-29-00 19:24:00 Test Item Value Reference Range Interpretation Comments Basophils (test code = 0.6 See_Comment [Aut omated message] The Basophils) system which ge nerated this result tra nsmitted reference range : <=1.0. The reference r ozzy was not used to int erpret this result as normal/abnormal . [facility] CenterLarcumjQEJFPEBZXH6583-30-77 19:24:00 Test Item Value Reference Range Interpretation Comments Monocytes (test code = Monocytes) 1.5 2.0-12.0 [id number] 19:24:00 Test Item Value Reference Range Interpretation Comments Eosinophils (test code = 1.6 See_Comment [A utomated message] The Eosinophils) system which ge nerated this result tra nsmitted reference range : <=4.0. The reference r ozzy was not used to int erpret this result as normal/abnormal . [facility] Cent[id number] 19:24:00 Test Item Value Reference Range Interpretation Comments Plt Morph (test code = Normal (08/24/14 1:24 Plt Morph) PM) [facility] AND [id number] 19:24:00 Test Item Value Reference Range Interpretation Comments UA Sq Epi (test code = UA Sq Occasional /LPF Epi) [facility] AND [id number] 19:24:00 Test Item Value Reference Range Interpretation Comments UA Bacteria (test code = UA Occasional /HPF Bacteria) [facility] AND [id number] 19:24:00 Test Item Value Reference Range Interpretation Comments UA Mucus (test code = None Seen (08/24/14 UA Mucus) 1:24 PM) [facility] AND [id number] 19:24:00 Test Item Value Reference Range Interpretation Comments UA WBC (test code = UA WBC) 0-2 /HPF [facility] AND [id number] 19:24:00 Test Item Value Reference Range Interpretation Comments UA RBC (test code = 0-2 /HPF See_Comment [Automa gaye message] The UA RBC) system which ge nerated this result tra nsmitted reference range : <=2. The reference range was not used to interpr et this result as satish l/abnormal. [facility] AND [id number] 19:24:00 Test Item Value Reference Range Interpretation Comments UA Leuk Est (test Moderate *ABN*(08/24/14 code = UA Leuk Est) 1:24 PM) [facility] AND [id number] 19:24:00 Test Item Value Reference Range Interpretation Comments UA Nitrite (test code Negative (08/24/14 1:24 = UA Nitrite) PM) [facility] AND [id number] 19:24:00 Test Item Value Reference Range Interpretation Comments UA Urobilinogen (test code = UA 0.2 0.1-1.0 Urobilinogen) [facility] AND [id number] 19:24:00 Test Item Value Reference Range Interpretation Comments UA Ketones (test code Negative *NA*(08/24/14 = UA Ketones) 1:24 PM) [facility] AND [id number] 19:24:00 Test Item Value Reference Range Interpretation Comments UA Blood (test code = Negative (08/24/14 1:24 UA Blood) PM) [facility] AND [id number] 19:24:00 Test Item Value Reference Range Interpretation Comments UA Bili (test code = Negative *NA*(08/24/14 UA Bili) 1:24 PM) [facility] AND [id number] 19:24:00 Test Item Value Reference Range Interpretation Comments UA Color (test code = Yellow *NA*(08/24/14 UA Color) 1:24 PM) [facility] AND [id number] 19:24:00 Test Item Value Reference Range Interpretation Comments UA Glucose (test code Negative (08/24/14 1:24 = UA Glucose) PM) [facility] AND [id number] 19:24:00 Test Item Value Reference Range Interpretation Comments UA Protein (test code Negative (08/24/14 1:24 = UA Protein) PM) [facility] AND [id number] 19:24:00 Test Item Value Reference Range Interpretation Comments UA pH (test code = UA pH) 6.0 1 5.0-8.0 [facility] AND [id number] 19:24:00 Test Item Value Reference Range Interpretation Comments UA Spec Grav (test code *NA*(08/24/14 1:24 PM) = UA Spec Grav) [facility] AND [id number] 19:24:00 Test Item Value Reference Range Interpretation Comments UA Turbidity (test code = Clear (08/24/14 1:24 UA Turbidity) PM) [facility]2015-01-12 19:24:00 Test Item Value Reference Range Interpretation Comments Lipase Lvl (test code = Lipase Lvl) 104 73-393 [facility]2015-01-12 19:24:00 Test Item Value Reference Range Interpretation Comments eGFR (test code = eGFR) 109 [facility]2015-01-12 19:24:00 Test Item Value Reference Range Interpretation Comments Bili Total (test code = Bili Total) 0.6 0.2-1.3 [facility]2015-01-12 19:24:00 Test Item Value Reference Range Interpretation Comments Alk Phos (test code = Alk Phos) 72 39-136 [facility]2015-01-12 19:24:00 Test Item Value Reference Range Interpretation Comments Calcium Lvl (test code = Calcium Lvl) 8.8 8.5-10.5 [facility]2015-01-12 19:24:00 Test Item Value Reference Range Interpretation Comments CO2 (test code = CO2) 28 24-32 [facility]2015-01-12 19:24:00 Test Item Value Reference Range Interpretation Comments Chloride Lvl (test code = Chloride Lvl) 107 95-109 [facility]2015-01-12 19:24:00 Test Item Value Reference Range Interpretation Comments Potassium Lvl (test code = Potassium 3.9 3.5-5.1 Lvl) [facility]2015-01-12 19:24:00 Test Item Value Reference Range Interpretation Comments Glucose Lvl (test code = Glucose Lvl) 90 70-99 [facility]2015-01-12 19:24:00 Test Item Value Reference Range Interpretation Comments Sodium Lvl (test code = Sodium Lvl) 138 135-145 [facility]2015-01-12 19:24:00 Test Item Value Reference Range Interpretation Comments BUN (test code = BUN) 7 7-22 [facility]2015-01-12 19:24:00 Test Item Value Reference Range Interpretation Comments Creatinine Lvl (test code = Creatinine 0.7 0.5-1.4 Lvl) [facility]2015-01-12 19:24:00 Test Item Value Reference Range Interpretation Comments ALT (test code = ALT) 23 See_Comment [Auto mated message] The system which ge nerated this result transmit gaye reference range : <=65. The reference range was not used to interpr et this result as satish l/abnormal. [facility]2015-01-12 19:24:00 Test Item Value Reference Range Interpretation Comments AST (test code = AST) 12 See_Comment [Auto mated message] The system which ge nerated this result transmit gaye reference range : <=37. The reference range was not used to interpr et this result as satish l/abnormal. [facility]2015-01-12 19:24:00 Test Item Value Reference Range Interpretation Comments Albumin Lvl (test code = Albumin Lvl) 3.8 3.5-5.0 [facility]2015-01-12 19:24:00 Test Item Value Reference Range Interpretation Comments Total Protein (test code = Total 8.0 6.4-8.4 Protein) [facility]2015-01-12 19:24:00 Test Item Value Reference Range Interpretation Comments A/G Ratio (test code = A/G Ratio) 0.9 0.7-1.6 [facility]2015-01-12 19:24:00 Test Item Value Reference Range Interpretation Comments AGAP (test code = AGAP) 6.9 10.0-20.0 [facility]2015-01-12 19:24:00 Test Item Value Reference Range Interpretation Comments B/C Ratio (test code = B/C Ratio) 10 6-25 [facility]2015-01-12 19:24:00 Test Item Value Reference Range Interpretation Comments Globulin (test code = Globulin) 4.2 2.0-4.0 [id number] 19:24:00 Test Item Value Reference Range Interpretation Comments S Preg (test code = S Negative *NA*(08/24/14 Preg) 1:24 PM) [id number] 19:24:00 Test Item Value Reference Range Interpretation Comments WBC (test code = WBC) 11.3 3.7-10.4 [facility] C[id number] 19:24:00 Test Item Value Reference Range Interpretation Comments RBC (test code = RBC) 4.75 4.20-5.40 [facility] CenterUnafmghNXIKAWFKBN4495-90-15 19:24:00 Test Item Value Reference Range Interpretation Comments Platelet (test code = Platelet) 402 133-450 [facility] CenterEezleanNNFNNYEATZ0668-67-03 19:24:00 Test Item Value Reference Range Interpretation Comments MCV (test code = MCV) 89.9 80.0-98.0 [facility] C[id number] 19:24:00 Test Item Value Reference Range Interpretation Comments Hct (test code = Hct) 42.7 36.0-48.0 [facility] Cent[id number] 19:24:00 Test Item Value Reference Range Interpretation Comments Hgb (test code = Hgb) 14.5 12.0-16.0 [facility] CenterQxhpckpFTIAIZNSKD5836-72-38 19:24:00 Test Item Value Reference Range Interpretation Comments RDW (test code = RDW) 13.5 11.5-14.5 [facility] C[id number] 19:24:00 Test Item Value Reference Range Interpretation Comments MCHC (test code = MCHC) 34.0 32.0-36.0 [facility] CenterGgpudxvMGGWMRFTTO8906-60-85 19:24:00 Test Item Value Reference Range Interpretation Comments MCH (test code = MCH) 30.6 pg 27.0-31.0 [facility] CenterXzxmccrUJPSPGRFZZ9622-54-76 19:24:00 Test Item Value Reference Range Interpretation Comments MPV (test code = MPV) 8.1 7.4-10.4 [facility] Cent[id number] 19:24:00 Test Item Value Reference Range Interpretation Comments Stomatocyte (test code = Stomatocyte) [facility] [id number] 19:24:00 Test Item Value Reference Range Interpretation Comments Basophils # (test code 0.1 See_Comment [Aut omated message] The = Basophils #) system which generated this result tra nsmitted reference range : <=0.2. The reference r ozzy was not used to int erpret this result as normal/abnormal . [facility] Cent[id number] 19:24:00 Test Item Value Reference Range Interpretation Comments Eosinophils # (test code 0.2 See_Comment [A utomated message] The = Eosinophils #) system whic h generated this result tra nsmitted reference range : <=0.5. The reference r ozzy was not used to int erpret this result as normal/abnormal . [facility] CenterQxssbzaLERABSDUBR2105-02-75 19:24:00 Test Item Value Reference Range Interpretation Comments Hypochrom (test code = 1+ (08/24/14 1:24 PM) Hypochrom) [facility] Cent[id number] 19:24:00 Test Item Value Reference Range Interpretation Comments Lymphocytes # (test code = Lymphocytes 2.8 1.0-5.5 #) [facility] CenterPmphcpnPRMLGYVTFH4995-64-39 19:24:00 Test Item Value Reference Range Interpretation Comments Segs-Bands # (test code = Segs-Bands #) 8.1 1.5-8.1 [facility] [id number] 19:24:00 Test Item Value Reference Range Interpretation Comments Monocytes # (test code 0.2 See_Comment [Aut omated message] The = Monocytes #) system which generated this result tra nsmitted reference range : <=0.8. The reference r ozzy was not used to int erpret this result as normal/abnormal . [facility] CenterDdldanzBQTUBHSNNG7305-74-63 19:24:00 Test Item Value Reference Range Interpretation Comments Lymphocytes (test code = Lymphocytes) 24.5 20.0-40.0 [facility] CenterAtkjxsbWAUSRHQFNO2787-66-04 19:24:00 Test Item Value Reference Range Interpretation Comments Segs (test code = Segs) 71.8 45.0-75.0 [facility] CenterGnagmyzSYNNGBBOWN1618-17-75 19:24:00 Test Item Value Reference Range Interpretation Comments Basophils (test code = 0.6 See_Comment [Aut omated message] The Basophils) system which ge nerated this result tra nsmitted reference range : <=1.0. The reference r ozzy was not used to int erpret this result as normal/abnormal . [facility] CenterTtawqfuRWABEQKZFM5757-31-27 19:24:00 Test Item Value Reference Range Interpretation Comments Monocytes (test code = Monocytes) 1.5 2.0-12.0 [facility] CenterGbqauhiCKCFKXZMSU8609-70-20 19:24:00 Test Item Value Reference Range Interpretation Comments Eosinophils (test code = 1.6 See_Comment [A utomated message] The Eosinophils) system which ge nerated this result tra nsmitted reference range : <=4.0. The reference r ozzy was not used to int erpret this result as normal/abnormal . [facility] [id number] 19:24:00 Test Item Value Reference Range Interpretation Comments Plt Morph (test code = Normal (08/24/14 1:24 Plt Morph) PM) [facility] AND [id number] 19:24:00 Test Item Value Reference Range Interpretation Comments UA Sq Epi (test code = UA Sq Occasional /LPF Epi) [facility] AND [id number] 19:24:00 Test Item Value Reference Range Interpretation Comments UA Bacteria (test code = UA Occasional /HPF Bacteria) [facility] AND [id number] 19:24:00 Test Item Value Reference Range Interpretation Comments UA Mucus (test code = None Seen (08/24/14 UA Mucus) 1:24 PM) [facility] AND [id number] 19:24:00 Test Item Value Reference Range Interpretation Comments UA WBC (test code = UA WBC) 0-2 /HPF [facility] AND [id number] 19:24:00 Test Item Value Reference Range Interpretation Comments UA RBC (test code = 0-2 /HPF See_Comment [Automa gaye message] The UA RBC) system which ge nerated this result tra nsmitted reference range : <=2. The reference range was not used to interpr et this result as satish l/abnormal. [facility] AND [id number] 19:24:00 Test Item Value Reference Range Interpretation Comments UA Leuk Est (test Moderate *ABN*(08/24/14 code = UA Leuk Est) 1:24 PM) [facility] AND [id number] 19:24:00 Test Item Value Reference Range Interpretation Comments UA Nitrite (test code Negative (08/24/14 1:24 = UA Nitrite) PM) [facility] AND [id number] 19:24:00 Test Item Value Reference Range Interpretation Comments UA Urobilinogen (test code = UA 0.2 0.1-1.0 Urobilinogen) [facility] AND [id number] 19:24:00 Test Item Value Reference Range Interpretation Comments UA Ketones (test code Negative *NA*(08/24/14 = UA Ketones) 1:24 PM) [facility] AND [id number] 19:24:00 Test Item Value Reference Range Interpretation Comments UA Blood (test code = Negative (08/24/14 1:24 UA Blood) PM) [facility] AND [id number] 19:24:00 Test Item Value Reference Range Interpretation Comments UA Bili (test code = Negative *NA*(08/24/14 UA Bili) 1:24 PM) [facility] AND [id number] 19:24:00 Test Item Value Reference Range Interpretation Comments UA Color (test code = Yellow *NA*(08/24/14 UA Color) 1:24 PM) [facility] AND [id number] 19:24:00 Test Item Value Reference Range Interpretation Comments UA Glucose (test code Negative (08/24/14 1:24 = UA Glucose) PM) [facility] AND [id number] 19:24:00 Test Item Value Reference Range Interpretation Comments UA Protein (test code Negative (08/24/14 1:24 = UA Protein) PM) [facility] AND [id number] 19:24:00 Test Item Value Reference Range Interpretation Comments UA pH (test code = UA pH) 6.0 1 5.0-8.0 [facility] AND [id number] 19:24:00 Test Item Value Reference Range Interpretation Comments UA Spec Grav (test code *NA*(08/24/14 1:24 PM) = UA Spec Grav) [facility] AND [id number] 19:24:00 Test Item Value Reference Range Interpretation Comments UA Turbidity (test code = Clear (08/24/14 1:24 UA Turbidity) PM) [facility]2015-01-12 19:24:00 Test Item Value Reference Range Interpretation Comments Lipase Lvl (test code = Lipase Lvl) 104 73-393 [facility]2015-01-12 19:24:00 Test Item Value Reference Range Interpretation Comments eGFR (test code = eGFR) 109 [facility]2015-01-12 19:24:00 Test Item Value Reference Range Interpretation Comments Bili Total (test code = Bili Total) 0.6 0.2-1.3 [facility]2015-01-12 19:24:00 Test Item Value Reference Range Interpretation Comments Alk Phos (test code = Alk Phos) 72 39-136 [facility]2015-01-12 19:24:00 Test Item Value Reference Range Interpretation Comments Calcium Lvl (test code = Calcium Lvl) 8.8 8.5-10.5 [facility]2015-01-12 19:24:00 Test Item Value Reference Range Interpretation Comments CO2 (test code = CO2) 28 24-32 [facility]2015-01-12 19:24:00 Test Item Value Reference Range Interpretation Comments Chloride Lvl (test code = Chloride Lvl) 107 95-109 [facility]2015-01-12 19:24:00 Test Item Value Reference Range Interpretation Comments Potassium Lvl (test code = Potassium 3.9 3.5-5.1 Lvl) [facility]2015-01-12 19:24:00 Test Item Value Reference Range Interpretation Comments Glucose Lvl (test code = Glucose Lvl) 90 70-99 [facility]2015-01-12 19:24:00 Test Item Value Reference Range Interpretation Comments Sodium Lvl (test code = Sodium Lvl) 138 135-145 [facility]2015-01-12 19:24:00 Test Item Value Reference Range Interpretation Comments BUN (test code = BUN) 7 7-22 [facility]2015-01-12 19:24:00 Test Item Value Reference Range Interpretation Comments Creatinine Lvl (test code = Creatinine 0.7 0.5-1.4 Lvl) [facility]2015-01-12 19:24:00 Test Item Value Reference Range Interpretation Comments ALT (test code = ALT) 23 See_Comment [Auto mated message] The system which ge nerated this result transmit gaye reference range : <=65. The reference range was not used to interpr et this result as satish l/abnormal. [facility]2015-01-12 19:24:00 Test Item Value Reference Range Interpretation Comments AST (test code = AST) 12 See_Comment [Auto mated message] The system which ge nerated this result transmit gaye reference range : <=37. The reference range was not used to interpr et this result as satish l/abnormal. [facility]2015-01-12 19:24:00 Test Item Value Reference Range Interpretation Comments Albumin Lvl (test code = Albumin Lvl) 3.8 3.5-5.0 [facility]2015-01-12 19:24:00 Test Item Value Reference Range Interpretation Comments Total Protein (test code = Total 8.0 6.4-8.4 Protein) [facility]2015-01-12 19:24:00 Test Item Value Reference Range Interpretation Comments A/G Ratio (test code = A/G Ratio) 0.9 0.7-1.6 [facility]2015-01-12 19:24:00 Test Item Value Reference Range Interpretation Comments AGAP (test code = AGAP) 6.9 10.0-20.0 [facility]2015-01-12 19:24:00 Test Item Value Reference Range Interpretation Comments B/C Ratio (test code = B/C Ratio) 10 6-25 [facility]2015-01-12 19:24:00 Test Item Value Reference Range Interpretation Comments Globulin (test code = Globulin) 4.2 2.0-4.[address] [facility] [id number] 19:24:00 Test Item Value Reference Range Interpretation Comments S Preg (test code = S Negative *NA*(08/24/14 Preg) 1:24 PM) [facility]ZwbtvfnBDXRAHNREX0921-89-75 19:24:00 Test Item Value Reference Range Interpretation Comments WBC (test code = WBC) 11.3 3.7-10.4 [facility] CenterKwdjuvhSKRHHWBNBB5954-22-72 19:24:00 Test Item Value Reference Range Interpretation Comments RBC (test code = RBC) 4.75 4.20-5.40 [place] [id number] 19:24:00 Test Item Value Reference Range Interpretation Comments Platelet (test code = Platelet) 402 133-450 [facility] CenterQokxknqBKFIPERWXA0094-57-32 19:24:00 Test Item Value Reference Range Interpretation Comments MCV (test code = MCV) 89.9 80.0-98.0 [facility] CenterBsxswonEQFGFWCSWB6266-70-80 19:24:00 Test Item Value Reference Range Interpretation Comments Hct (test code = Hct) 42.7 36.0-48.0 [facility] CenterWaqkcwwZUNYYVTUBD8862-08-70 19:24:00 Test Item Value Reference Range Interpretation Comments Hgb (test code = Hgb) 14.5 12.0-16.0 [facility] CenterMocxtyuXCKPHMZUMW9774-22-01 19:24:00 Test Item Value Reference Range Interpretation Comments RDW (test code = RDW) 13.5 11.5-14.5 [facility] CenterBrxintvTNSWMUTXJX7399-77-08 19:24:00 Test Item Value Reference Range Interpretation Comments MCHC (test code = MCHC) 34.0 32.0-36.0 [facility] CenterCsvrehvLTXCZTYGYM4694-58-44 19:24:00 Test Item Value Reference Range Interpretation Comments MCH (test code = MCH) 30.6 pg 27.0-31.0 [facility] CenterPwrrlqtFFROORLIGE6646-77-99 19:24:00 Test Item Value Reference Range Interpretation Comments MPV (test code = MPV) 8.1 7.4-10.4 [facility] Cent[id number] 19:24:00 Test Item Value Reference Range Interpretation Comments Stomatocyte (test code = Stomatocyte) [facility] CenterPvsayglUGPCPMQIEG5580-28-97 19:24:00 Test Item Value Reference Range Interpretation Comments Basophils # (test code 0.1 See_Comment [Aut omated message] The = Basophils #) system which generated this result tra nsmitted reference range : <=0.2. The reference r ozzy was not used to int erpret this result as normal/abnormal . [facility] CenterFesuvpbCCTDTTWSXL5630-21-26 19:24:00 Test Item Value Reference Range Interpretation Comments Eosinophils # (test code 0.2 See_Comment [A utomated message] The = Eosinophils #) system whic h generated this result tra nsmitted reference range : <=0.5. The reference r ozzy was not used to int erpret this result as normal/abnormal . [facility] CenterCipusmoGVAUWEOMHI6124-38-69 19:24:00 Test Item Value Reference Range Interpretation Comments Hypochrom (test code = 1+ (08/24/14 1:24 PM) Hypochrom) [facility] CenterGtxdtwkMLGIQPOSFW0944-73-49 19:24:00 Test Item Value Reference Range Interpretation Comments Lymphocytes # (test code = Lymphocytes 2.8 1.0-5.5 #) [facility] CenterLbtgpwjWILKYXNFJZ3575-89-38 19:24:00 Test Item Value Reference Range Interpretation Comments Segs-Bands # (test code = Segs-Bands #) 8.1 1.5-8.1 [facility] CenterMhfjqmsNEFTFMIVPV0842-54-26 19:24:00 Test Item Value Reference Range Interpretation Comments Monocytes # (test code 0.2 See_Comment [Aut omated message] The = Monocytes #) system which generated this result tra nsmitted reference range : <=0.8. The reference r ozzy was not used to int erpret this result as normal/abnormal . [facility] CenterEsephseYZBKEHDILA5950-76-95 19:24:00 Test Item Value Reference Range Interpretation Comments Lymphocytes (test code = Lymphocytes) 24.5 20.0-40.0 [facility] CenterTarwxpsVGAMEORUYV5341-08-73 19:24:00 Test Item Value Reference Range Interpretation Comments Segs (test code = Segs) 71.8 45.0-75.0 [facility] CenterChqckxaNOJNJYRBTL6153-09-08 19:24:00 Test Item Value Reference Range Interpretation Comments Basophils (test code = 0.6 See_Comment [Aut omated message] The Basophils) system which ge nerated this result tra nsmitted reference range : <=1.0. The reference r ozzy was not used to int erpret this result as normal/abnormal . [facility] CenterMenfibfSSPMVLMSXT9030-04-68 19:24:00 Test Item Value Reference Range Interpretation Comments Monocytes (test code = Monocytes) 1.5 2.0-12.0 [facility] CenterViuckccOIPYXXGGBA6995-46-62 19:24:00 Test Item Value Reference Range Interpretation Comments Eosinophils (test code = 1.6 See_Comment [A utomated message] The Eosinophils) system which ge nerated this result tra nsmitted reference range : <=4.0. The reference r ozzy was not used to int erpret this result as normal/abnormal . [facility] HospitalDerikfxTQWABWKUPD0541-86-15 19:24:00 Test Item Value Reference Range Interpretation Comments Plt Morph (test code = Normal (08/24/14 1:24 Plt Morph) PM) [facility] AND [id number] 19:24:00 Test Item Value Reference Range Interpretation Comments UA Sq Epi (test code = UA Sq Occasional /LPF Epi) [facility] AND [id number] 19:24:00 Test Item Value Reference Range Interpretation Comments UA Bacteria (test code = UA Occasional /HPF Bacteria) [facility] AND [id number] 19:24:00 Test Item Value Reference Range Interpretation Comments UA Mucus (test code = None Seen (08/24/14 UA Mucus) 1:24 PM) [facility] AND [id number] 19:24:00 Test Item Value Reference Range Interpretation Comments UA WBC (test code = UA WBC) 0-2 /HPF [facility] [id number] 19:24:00 Test Item Value Reference Range Interpretation Comments UA RBC (test code = 0-2 /HPF See_Comment [Automa gaye message] The UA RBC) system which ge nerated this result tra nsmitted reference range : <=2. The reference range was not used to interpr et this result as satish l/abnormal. [facility] AND [id number] 19:24:00 Test Item Value Reference Range Interpretation Comments UA Leuk Est (test Moderate *ABN*(08/24/14 code = UA Leuk Est) 1:24 PM) [facility] AND [id number] 19:24:00 Test Item Value Reference Range Interpretation Comments UA Nitrite (test code Negative (08/24/14 1:24 = UA Nitrite) PM) [facility] AND [id number] 19:24:00 Test Item Value Reference Range Interpretation Comments UA Urobilinogen (test code = UA 0.2 0.1-1.0 Urobilinogen) [facility] AND [id number] 19:24:00 Test Item Value Reference Range Interpretation Comments UA Ketones (test code Negative *NA*(08/24/14 = UA Ketones) 1:24 PM) [facility] [id number] 19:24:00 Test Item Value Reference Range Interpretation Comments UA Blood (test code = Negative (08/24/14 1:24 UA Blood) PM) [facility] [id number] 19:24:00 Test Item Value Reference Range Interpretation Comments UA Bili (test code = Negative *NA*(08/24/14 UA Bili) 1:24 PM) [facility] [id number] 19:24:00 Test Item Value Reference Range Interpretation Comments UA Color (test code = Yellow *NA*(08/24/14 UA Color) 1:24 PM) [facility] AND [id number] 19:24:00 Test Item Value Reference Range Interpretation Comments UA Glucose (test code Negative (08/24/14 1:24 = UA Glucose) PM) [facility] AND [id number] 19:24:00 Test Item Value Reference Range Interpretation Comments UA Protein (test code Negative (08/24/14 1:24 = UA Protein) PM) [facility] AND [id number] 19:24:00 Test Item Value Reference Range Interpretation Comments UA pH (test code = UA pH) 6.0 1 5.0-8.0 [facility] AND [id number] 19:24:00 Test Item Value Reference Range Interpretation Comments UA Spec Grav (test code *NA*(08/24/14 1:24 PM) = UA Spec Grav) [facility] AND [id number] 19:24:00 Test Item Value Reference Range Interpretation Comments UA Turbidity (test code = Clear (08/24/14 1:24 UA Turbidity) PM) [facility] [id number] 19:24:00 Test Item Value Reference Range Interpretation Comments Lipase Lvl (test code = Lipase Lvl) 104 73-393 [facility] [id number] 19:24:00 Test Item Value Reference Range Interpretation Comments eGFR (test code = eGFR) 109 [facility] [id number] 19:24:00 Test Item Value Reference Range Interpretation Comments Bili Total (test code = Bili Total) 0.6 0.2-1.3 [facility]2015-01-12 19:24:00 Test Item Value Reference Range Interpretation Comments Alk Phos (test code = Alk Phos) 72 39-136 [facility]2015-01-12 19:24:00 Test Item Value Reference Range Interpretation Comments Calcium Lvl (test code = Calcium Lvl) 8.8 8.5-10.5 [facility]2015-01-12 19:24:00 Test Item Value Reference Range Interpretation Comments CO2 (test code = CO2) 28 24-32 [facility]2015-01-12 19:24:00 Test Item Value Reference Range Interpretation Comments Chloride Lvl (test code = Chloride Lvl) 107 95-109 [facility]2015-01-12 19:24:00 Test Item Value Reference Range Interpretation Comments Potassium Lvl (test code = Potassium 3.9 3.5-5.1 Lvl) [facility]2015-01-12 19:24:00 Test Item Value Reference Range Interpretation Comments Glucose Lvl (test code = Glucose Lvl) 90 70-99 [facility]2015-01-12 19:24:00 Test Item Value Reference Range Interpretation Comments Sodium Lvl (test code = Sodium Lvl) 138 135-145 [facility]2015-01-12 19:24:00 Test Item Value Reference Range Interpretation Comments BUN (test code = BUN) 7 7-22 [facility]2015-01-12 19:24:00 Test Item Value Reference Range Interpretation Comments Creatinine Lvl (test code = Creatinine 0.7 0.5-1.4 Lvl) [facility]2015-01-12 19:24:00 Test Item Value Reference Range Interpretation Comments ALT (test code = ALT) 23 See_Comment [Auto mated message] The system which ge nerated this result transmit gaye reference range : <=65. The reference range was not used to interpr et this result as satish l/abnormal. [facility]2015-01-12 19:24:00 Test Item Value Reference Range Interpretation Comments AST (test code = AST) 12 See_Comment [Auto mated message] The system which ge nerated this result transmit gaye reference range : <=37. The reference range was not used to interpr et this result as satish l/abnormal. [place] [id number] 19:24:00 Test Item Value Reference Range Interpretation Comments Albumin Lvl (test code = Albumin Lvl) 3.8 3.5-5.0 [facility]2015-01-12 19:24:00 Test Item Value Reference Range Interpretation Comments Total Protein (test code = Total 8.0 6.4-8.4 Protein) [facility]2015-01-12 19:24:00 Test Item Value Reference Range Interpretation Comments A/G Ratio (test code = A/G Ratio) 0.9 0.7-1.6 [facility]2015-01-12 19:24:00 Test Item Value Reference Range Interpretation Comments AGAP (test code = AGAP) 6.9 10.0-20.0 [facility]2015-01-12 19:24:00 Test Item Value Reference Range Interpretation Comments B/C Ratio (test code = B/C Ratio) 10 6-25 [facility]2015-01-12 19:24:00 Test Item Value Reference Range Interpretation Comments Globulin (test code = Globulin) 4.2 2.0-4.0 [id number] 19:24:00 Test Item Value Reference Range Interpretation Comments S Preg (test code = S Negative *NA*(08/24/14 Preg) 1:24 PM) [facility]zkmbpxXALZDALIXW5494-02-58 19:24:00 Test Item Value Reference Range Interpretation Comments WBC (test code = WBC) 11.3 3.7-10.4 [facility] [id number] 19:24:00 Test Item Value Reference Range Interpretation Comments RBC (test code = RBC) 4.75 4.20-5.40 [facility] CenterWjilzkhCZCMTFMCDE4770-31-33 19:24:00 Test Item Value Reference Range Interpretation Comments Platelet (test code = Platelet) 402 133-450 [facility] CenterAoqlnmvKROWJUKFSJ3513-24-95 19:24:00 Test Item Value Reference Range Interpretation Comments MCV (test code = MCV) 89.9 80.0-98.0 [facility] CenterNrsifwyOGXPDRWDUV0222-84-71 19:24:00 Test Item Value Reference Range Interpretation Comments Hct (test code = Hct) 42.7 36.0-48.0 [place] [id number] 19:24:00 Test Item Value Reference Range Interpretation Comments Hgb (test code = Hgb) 14.5 12.0-16.0 [facility] CenterXpljzcwQPKUDOTCAO9384-83-04 19:24:00 Test Item Value Reference Range Interpretation Comments RDW (test code = RDW) 13.5 11.5-14.5 [facility] CenterWveemsoMFQPIPQRKC3364-84-66 19:24:00 Test Item Value Reference Range Interpretation Comments MCHC (test code = MCHC) 34.0 32.0-36.0 [facility] CenterUaesftcIBHHBSIRAG3293-21-12 19:24:00 Test Item Value Reference Range Interpretation Comments MCH (test code = MCH) 30.6 pg 27.0-31.0 [facility] Cent[id number] 19:24:00 Test Item Value Reference Range Interpretation Comments MPV (test code = MPV) 8.1 7.4-10.4 [facility] Cent[id number] 19:24:00 Test Item Value Reference Range Interpretation Comments Stomatocyte (test code = Stomatocyte) [facility] CenterZwiikqfGJOHCWNTZW6538-01-15 19:24:00 Test Item Value Reference Range Interpretation Comments Basophils # (test code 0.1 See_Comment [Aut omated message] The = Basophils #) system which generated this result tra nsmitted reference range : <=0.2. The reference r ozzy was not used to int erpret this result as normal/abnormal . [facility] CenterNzhoaltZVZDXNXDKG6954-49-11 19:24:00 Test Item Value Reference Range Interpretation Comments Eosinophils # (test code 0.2 See_Comment [A utomated message] The = Eosinophils #) system whic h generated this result tra nsmitted reference range : <=0.5. The reference r ozzy was not used to int erpret this result as normal/abnormal . [facility] CenterQtdqvafRPEPXNPOOJ6442-11-70 19:24:00 Test Item Value Reference Range Interpretation Comments Hypochrom (test code = 1+ (08/24/14 1:24 PM) Hypochrom) [facility] Cent[id number] 19:24:00 Test Item Value Reference Range Interpretation Comments Lymphocytes # (test code = Lymphocytes 2.8 1.0-5.5 #) [facility] [id number] 19:24:00 Test Item Value Reference Range Interpretation Comments Segs-Bands # (test code = Segs-Bands #) 8.1 1.5-8.1 [facility] [id number] 19:24:00 Test Item Value Reference Range Interpretation Comments Monocytes # (test code 0.2 See_Comment [Aut omated message] The = Monocytes #) system which generated this result tra nsmitted reference range : <=0.8. The reference r zozy was not used to int erpret this result as normal/abnormal . [facility] CenterTupsgyyAMQUYIPYOQ3456-21-15 19:24:00 Test Item Value Reference Range Interpretation Comments Lymphocytes (test code = Lymphocytes) 24.5 20.0-40.0 [facility] Cent[id number] 19:24:00 Test Item Value Reference Range Interpretation Comments Segs (test code = Segs) 71.8 45.0-75.0 [facility] CenterPdelsgiBGCXEPKDMH2593-90-40 19:24:00 Test Item Value Reference Range Interpretation Comments Basophils (test code = 0.6 See_Comment [Aut omated message] The Basophils) system which ge nerated this result tra nsmitted reference range : <=1.0. The reference r ozzy was not used to int erpret this result as normal/abnormal . [facility] CenterZsfznuhBJHNBHMDXW3294-14-55 19:24:00 Test Item Value Reference Range Interpretation Comments Monocytes (test code = Monocytes) 1.5 2.0-12.0 [facility] CenterLivzbkpBTMQUGWRHA0788-67-79 19:24:00 Test Item Value Reference Range Interpretation Comments Eosinophils (test code = 1.6 See_Comment [A utomated message] The Eosinophils) system which ge nerated this result tra nsmitted reference range : <=4.0. The reference r ozzy was not used to int erpret this result as normal/abnormal . [facility] CenterCelmqqeWGUNQKIYBF6360-03-14 19:24:00 Test Item Value Reference Range Interpretation Comments Plt Morph (test code = Normal (08/24/14 1:24 Plt Morph) PM) [facility] AND [id number] 19:24:00 Test Item Value Reference Range Interpretation Comments UA Sq Epi (test code = UA Sq Occasional /LPF Epi) [facility] AND [id number] 19:24:00 Test Item Value Reference Range Interpretation Comments UA Bacteria (test code = UA Occasional /HPF Bacteria) [facility] AND [id number] 19:24:00 Test Item Value Reference Range Interpretation Comments UA Mucus (test code = None Seen (08/24/14 UA Mucus) 1:24 PM) [facility] AND [id number] 19:24:00 Test Item Value Reference Range Interpretation Comments UA WBC (test code = UA WBC) 0-2 /HPF [facility] AND [id number] 19:24:00 Test Item Value Reference Range Interpretation Comments UA RBC (test code = 0-2 /HPF See_Comment [Automa gaye message] The UA RBC) system which ge nerated this result tra nsmitted reference range : <=2. The reference range was not used to interpr et this result as satish l/abnormal. [facility] AND [id number] 19:24:00 Test Item Value Reference Range Interpretation Comments UA Leuk Est (test Moderate *ABN*(08/24/14 code = UA Leuk Est) 1:24 PM) [facility] AND [id number] 19:24:00 Test Item Value Reference Range Interpretation Comments UA Nitrite (test code Negative (08/24/14 1:24 = UA Nitrite) PM) [facility] AND [id number] 19:24:00 Test Item Value Reference Range Interpretation Comments UA Urobilinogen (test code = UA 0.2 0.1-1.0 Urobilinogen) [facility] AND [id number] 19:24:00 Test Item Value Reference Range Interpretation Comments UA Ketones (test code Negative *NA*(08/24/14 = UA Ketones) 1:24 PM) [facility] AND [id number] 19:24:00 Test Item Value Reference Range Interpretation Comments UA Blood (test code = Negative (08/24/14 1:24 UA Blood) PM) [facility] AND [id number] 19:24:00 Test Item Value Reference Range Interpretation Comments UA Bili (test code = Negative *NA*(08/24/14 UA Bili) 1:24 PM) [facility] AND [id number] 19:24:00 Test Item Value Reference Range Interpretation Comments UA Color (test code = Yellow *NA*(08/24/14 UA Color) 1:24 PM) [facility] AND [id number] 19:24:00 Test Item Value Reference Range Interpretation Comments UA Glucose (test code Negative (08/24/14 1:24 = UA Glucose) PM) [facility] AND [id number] 19:24:00 Test Item Value Reference Range Interpretation Comments UA Protein (test code Negative (08/24/14 1:24 = UA Protein) PM) [facility] AND [id number] 19:24:00 Test Item Value Reference Range Interpretation Comments UA pH (test code = UA pH) 6.0 1 5.0-8.0 [facility] AND [id number] 19:24:00 Test Item Value Reference Range Interpretation Comments UA Spec Grav (test code *NA*(08/24/14 1:24 PM) = UA Spec Grav) [facility] AND [id number] 19:24:00 Test Item Value Reference Range Interpretation Comments UA Turbidity (test code = Clear (08/24/14 1:24 UA Turbidity) PM) [facility]2015-01-12 19:24:00 Test Item Value Reference Range Interpretation Comments Lipase Lvl (test code = Lipase Lvl) 104 73-393 [facility]2015-01-12 19:24:00 Test Item Value Reference Range Interpretation Comments eGFR (test code = eGFR) 109 [facility]2015-01-12 19:24:00 Test Item Value Reference Range Interpretation Comments Bili Total (test code = Bili Total) 0.6 0.2-1.3 [facility]2015-01-12 19:24:00 Test Item Value Reference Range Interpretation Comments Alk Phos (test code = Alk Phos) 72 39-136 [facility]2015-01-12 19:24:00 Test Item Value Reference Range Interpretation Comments Calcium Lvl (test code = Calcium Lvl) 8.8 8.5-10.5 [facility]2015-01-12 19:24:00 Test Item Value Reference Range Interpretation Comments CO2 (test code = CO2) 28 24-32 [facility]2015-01-12 19:24:00 Test Item Value Reference Range Interpretation Comments Chloride Lvl (test code = Chloride Lvl) 107 95-109 [facility]2015-01-12 19:24:00 Test Item Value Reference Range Interpretation Comments Potassium Lvl (test code = Potassium 3.9 3.5-5.1 Lvl) [facility]2015-01-12 19:24:00 Test Item Value Reference Range Interpretation Comments Glucose Lvl (test code = Glucose Lvl) 90 70-99 [facility]2015-01-12 19:24:00 Test Item Value Reference Range Interpretation Comments Sodium Lvl (test code = Sodium Lvl) 138 135-145 [place] [id number] 19:24:00 Test Item Value Reference Range Interpretation Comments BUN (test code = BUN) 7 7-22 [place] [id number] 19:24:00 Test Item Value Reference Range Interpretation Comments Creatinine Lvl (test code = Creatinine 0.7 0.5-1.4 Lvl) [facility]2015-01-12 19:24:00 Test Item Value Reference Range Interpretation Comments ALT (test code = ALT) 23 See_Comment [Auto mated message] The system which ge nerated this result transmit gaye reference range : <=65. The reference range was not used to interpr et this result as satish l/abnormal. [facility]2015-01-12 19:24:00 Test Item Value Reference Range Interpretation Comments AST (test code = AST) 12 See_Comment [Auto mated message] The system which ge nerated this result transmit gaye reference range : <=37. The reference range was not used to interpr et this result as satish l/abnormal. [place] [id number] 19:24:00 Test Item Value Reference Range Interpretation Comments Albumin Lvl (test code = Albumin Lvl) 3.8 3.5-5.0 [place] [id number] 19:24:00 Test Item Value Reference Range Interpretation Comments Total Protein (test code = Total 8.0 6.4-8.4 Protein) [facility]2015-01-12 19:24:00 Test Item Value Reference Range Interpretation Comments A/G Ratio (test code = A/G Ratio) 0.9 0.7-1.6 [facility]2015-01-12 19:24:00 Test Item Value Reference Range Interpretation Comments AGAP (test code = AGAP) 6.9 10.0-20.0 [facility]2015-01-12 19:24:00 Test Item Value Reference Range Interpretation Comments B/C Ratio (test code = B/C Ratio) 10 6-25 [facility] [id number] 19:24:00 Test Item Value Reference Range Interpretation Comments Globulin (test code = Globulin) 4.2 2.0-4.[address] [facility] [facility]bhxwpwYJGKGEKEDBSSA6183-43-15 19:24:00 Test Item Value Reference Range Interpretation Comments S Preg (test code = S Negative *NA*(08/24/14 Preg) 1:24 PM) [facility]AcivozfNSTIDZDINY6107-16-89 19:24:00 Test Item Value Reference Range Interpretation Comments WBC (test code = WBC) 11.3 3.7-10.4 [facility] CenterDihkbezVRKEETGYTM6695-02-40 19:24:00 Test Item Value Reference Range Interpretation Comments RBC (test code = RBC) 4.75 4.20-5.40 [facility] CenterFscmhnjIEIMOYLZBG8951-22-09 19:24:00 Test Item Value Reference Range Interpretation Comments Platelet (test code = Platelet) 402 133-450 [facility] CenterBaupoueNGYKMBEIVH8793-29-14 19:24:00 Test Item Value Reference Range Interpretation Comments MCV (test code = MCV) 89.9 80.0-98.0 [facility] CenterAynehnkCDAILQPRKJ1225-95-09 19:24:00 Test Item Value Reference Range Interpretation Comments Hct (test code = Hct) 42.7 36.0-48.0 [facility] CenterTtheszrBSBWSOPVKJ0734-34-82 19:24:00 Test Item Value Reference Range Interpretation Comments Hgb (test code = Hgb) 14.5 12.0-16.0 [facility] CenterTbztrmbZTESTVYTCT5999-50-21 19:24:00 Test Item Value Reference Range Interpretation Comments RDW (test code = RDW) 13.5 11.5-14.5 [facility] CenterBgchuabEQGLKSNRWJ8481-42-36 19:24:00 Test Item Value Reference Range Interpretation Comments MCHC (test code = MCHC) 34.0 32.0-36.0 [facility] CenterEuhpxqqIXVONPFEZB3992-38-22 19:24:00 Test Item Value Reference Range Interpretation Comments MCH (test code = MCH) 30.6 pg 27.0-31.0 [facility] CenterXsbgnydZXZTUQVYLN2419-49-48 19:24:00 Test Item Value Reference Range Interpretation Comments MPV (test code = MPV) 8.1 7.4-10.4 [facility] CenterFzfnrcxCZZTOYCKYT5349-90-24 19:24:00 Test Item Value Reference Range Interpretation Comments Stomatocyte (test code = Stomatocyte) [facility] CenterUkvdultTVVHZTBXAQ8774-01-22 19:24:00 Test Item Value Reference Range Interpretation Comments Basophils # (test code 0.1 See_Comment [Aut omated message] The = Basophils #) system which generated this result tra nsmitted reference range : <=0.2. The reference r ozzy was not used to int erpret this result as normal/abnormal . [facility] CenterIfjkpapBYDCXVWPYG8233-64-97 19:24:00 Test Item Value Reference Range Interpretation Comments Eosinophils # (test code 0.2 See_Comment [A utomated message] The = Eosinophils #) system whic h generated this result tra nsmitted reference range : <=0.5. The reference r ozzy was not used to int erpret this result as normal/abnormal . [facility] CenterHlvnxmyFQKKMWADJD8060-79-96 19:24:00 Test Item Value Reference Range Interpretation Comments Hypochrom (test code = 1+ (08/24/14 1:24 PM) Hypochrom) [facility] CenterJduhnglYBCGUETKZJ6396-71-16 19:24:00 Test Item Value Reference Range Interpretation Comments Lymphocytes # (test code = Lymphocytes 2.8 1.0-5.5 #) [facility] CenterNhtjdogGCAYXMGHQY2843-56-47 19:24:00 Test Item Value Reference Range Interpretation Comments Segs-Bands # (test code = Segs-Bands #) 8.1 1.5-8.1 [facility] CenterRxfcatkTKORLIZUMR4024-42-55 19:24:00 Test Item Value Reference Range Interpretation Comments Monocytes # (test code 0.2 See_Comment [Aut omated message] The = Monocytes #) system which generated this result tra nsmitted reference range : <=0.8. The reference r ozzy was not used to int erpret this result as normal/abnormal . [facility] CenterTqtfgliACCUUOJPDR5981-87-65 19:24:00 Test Item Value Reference Range Interpretation Comments Lymphocytes (test code = Lymphocytes) 24.5 20.0-40.0 [facility] CenterDdauqdoNPCQUMIUIY8798-40-57 19:24:00 Test Item Value Reference Range Interpretation Comments Segs (test code = Segs) 71.8 45.0-75.0 [facility] CenterTvveplwZEKVXOFHBH5932-37-02 19:24:00 Test Item Value Reference Range Interpretation Comments Basophils (test code = 0.6 See_Comment [Aut omated message] The Basophils) system which ge nerated this result tra nsmitted reference range : <=1.0. The reference r ozzy was not used to int erpret this result as normal/abnormal . [facility] CenterIfkgsafQTIKTDVXAA1535-28-94 19:24:00 Test Item Value Reference Range Interpretation Comments Monocytes (test code = Monocytes) 1.5 2.0-12.0 [facility] CenterXocdataFERVVZYNFR8052-16-62 19:24:00 Test Item Value Reference Range Interpretation Comments Eosinophils (test code = 1.6 See_Comment [A utomated message] The Eosinophils) system which ge nerated this result tra nsmitted reference range : <=4.0. The reference r ozzy was not used to int erpret this result as normal/abnormal . [facility] CenterErsraosNKUKHTOQTR9631-99-23 19:24:00 Test Item Value Reference Range Interpretation Comments Plt Morph (test code = Normal (08/24/14 1:24 Plt Morph) PM) [facility] AND [id number] 19:24:00 Test Item Value Reference Range Interpretation Comments UA Sq Epi (test code = UA Sq Occasional /LPF Epi) [facility] AND [id number] 19:24:00 Test Item Value Reference Range Interpretation Comments UA Bacteria (test code = UA Occasional /HPF Bacteria) [facility] AND [id number] 19:24:00 Test Item Value Reference Range Interpretation Comments UA Mucus (test code = None Seen (08/24/14 UA Mucus) 1:24 PM) [facility] AND [id number] 19:24:00 Test Item Value Reference Range Interpretation Comments UA WBC (test code = UA WBC) 0-2 /HPF [facility] AND [id number] 19:24:00 Test Item Value Reference Range Interpretation Comments UA RBC (test code = 0-2 /HPF See_Comment [Automa gaye message] The UA RBC) system which ge nerated this result tra nsmitted reference range : <=2. The reference range was not used to interpr et this result as satish l/abnormal. [facility] AND [id number] 19:24:00 Test Item Value Reference Range Interpretation Comments UA Leuk Est (test Moderate *ABN*(08/24/14 code = UA Leuk Est) 1:24 PM) [facility] AND [id number] 19:24:00 Test Item Value Reference Range Interpretation Comments UA Nitrite (test code Negative (08/24/14 1:24 = UA Nitrite) PM) [facility] AND [id number] 19:24:00 Test Item Value Reference Range Interpretation Comments UA Urobilinogen (test code = UA 0.2 0.1-1.0 Urobilinogen) [facility] AND [id number] 19:24:00 Test Item Value Reference Range Interpretation Comments UA Ketones (test code Negative *NA*(08/24/14 = UA Ketones) 1:24 PM) [facility] AND [id number] 19:24:00 Test Item Value Reference Range Interpretation Comments UA Blood (test code = Negative (08/24/14 1:24 UA Blood) PM) [facility] [facility] [id number] 19:24:00 Test Item Value Reference Range Interpretation Comments UA Bili (test code = Negative *NA*(08/24/14 UA Bili) 1:24 PM) [facility] AND [id number] 19:24:00 Test Item Value Reference Range Interpretation Comments UA Color (test code = Yellow *NA*(08/24/14 UA Color) 1:24 PM) [facility] AND [id number] 19:24:00 Test Item Value Reference Range Interpretation Comments UA Glucose (test code Negative (08/24/14 1:24 = UA Glucose) PM) [facility] AND [id number] 19:24:00 Test Item Value Reference Range Interpretation Comments UA Protein (test code Negative (08/24/14 1:24 = UA Protein) PM) [facility] AND [id number] 19:24:00 Test Item Value Reference Range Interpretation Comments UA pH (test code = UA pH) 6.0 1 5.0-8.0 [facility] AND [id number] 19:24:00 Test Item Value Reference Range Interpretation Comments UA Spec Grav (test code *NA*(08/24/14 1:24 PM) = UA Spec Grav) [facility] AND [id number] 19:24:00 Test Item Value Reference Range Interpretation Comments UA Turbidity (test code = Clear (08/24/14 1:24 UA Turbidity) PM) [facility]2015-01-12 19:24:00 Test Item Value Reference Range Interpretation Comments Lipase Lvl (test code = Lipase Lvl) 104 73-393 [facility]2015-01-12 19:24:00 Test Item Value Reference Range Interpretation Comments eGFR (test code = eGFR) 109 [facility]2015-01-12 19:24:00 Test Item Value Reference Range Interpretation Comments Bili Total (test code = Bili Total) 0.6 0.2-1.3 [facility]2015-01-12 19:24:00 Test Item Value Reference Range Interpretation Comments Alk Phos (test code = Alk Phos) 72 39-136 [facility]2015-01-12 19:24:00 Test Item Value Reference Range Interpretation Comments Calcium Lvl (test code = Calcium Lvl) 8.8 8.5-10.5 [facility]2015-01-12 19:24:00 Test Item Value Reference Range Interpretation Comments CO2 (test code = CO2) 28 24-32 [facility]2015-01-12 19:24:00 Test Item Value Reference Range Interpretation Comments Chloride Lvl (test code = Chloride Lvl) 107 95-109 [facility]2015-01-12 19:24:00 Test Item Value Reference Range Interpretation Comments Potassium Lvl (test code = Potassium 3.9 3.5-5.1 Lvl) [facility]2015-01-12 19:24:00 Test Item Value Reference Range Interpretation Comments Glucose Lvl (test code = Glucose Lvl) 90 70-99 [facility]2015-01-12 19:24:00 Test Item Value Reference Range Interpretation Comments Sodium Lvl (test code = Sodium Lvl) 138 135-145 [facility]2015-01-12 19:24:00 Test Item Value Reference Range Interpretation Comments BUN (test code = BUN) 7 7-22 [place] [id number] 19:24:00 Test Item Value Reference Range Interpretation Comments Creatinine Lvl (test code = Creatinine 0.7 0.5-1.4 Lvl) [place] [id number] 19:24:00 Test Item Value Reference Range Interpretation Comments ALT (test code = ALT) 23 See_Comment [Auto mated message] The system which ge nerated this result transmit gaye reference range : <=65. The reference range was not used to interpr et this result as satish l/abnormal. [facility]2015-01-12 19:24:00 Test Item Value Reference Range Interpretation Comments AST (test code = AST) 12 See_Comment [Auto mated message] The system which ge nerated this result transmit gaye reference range : <=37. The reference range was not used to interpr et this result as satish l/abnormal. [facility]2015-01-12 19:24:00 Test Item Value Reference Range Interpretation Comments Albumin Lvl (test code = Albumin Lvl) 3.8 3.5-5.0 [facility]2015-01-12 19:24:00 Test Item Value Reference Range Interpretation Comments Total Protein (test code = Total 8.0 6.4-8.4 Protein) [facility]2015-01-12 19:24:00 Test Item Value Reference Range Interpretation Comments A/G Ratio (test code = A/G Ratio) 0.9 0.7-1.6 [facility]2015-01-12 19:24:00 Test Item Value Reference Range Interpretation Comments AGAP (test code = AGAP) 6.9 10.0-20.0 [facility]2015-01-12 19:24:00 Test Item Value Reference Range Interpretation Comments B/C Ratio (test code = B/C Ratio) 10 6-25 [place] [id number] 19:24:00 Test Item Value Reference Range Interpretation Comments Globulin (test code = Globulin) 4.2 2.0-4.0 [facility]0876[facility]-94 19:24:00 Test Item Value Reference Range Interpretation Comments S Preg (test code = S Negative *NA*(08/24/14 Preg) 1:24 PM) [id number] 19:24:00 Test Item Value Reference Range Interpretation Comments WBC (test code = WBC) 11.3 3.7-10.4 [facility] [id number] 19:24:00 Test Item Value Reference Range Interpretation Comments RBC (test code = RBC) 4.75 4.20-5.40 [facility] CenterZdniwkeUMIUAMLBAH5367-67-79 19:24:00 Test Item Value Reference Range Interpretation Comments Platelet (test code = Platelet) 402 133-450 [facility] CenterZygolrhSLRVMWUETO8770-37-79 19:24:00 Test Item Value Reference Range Interpretation Comments MCV (test code = MCV) 89.9 80.0-98.0 [facility] CenterNqqlauoDSYGUVCRRR3221-38-24 19:24:00 Test Item Value Reference Range Interpretation Comments Hct (test code = Hct) 42.7 36.0-48.0 [facility] Cent[id number] 19:24:00 Test Item Value Reference Range Interpretation Comments Hgb (test code = Hgb) 14.5 12.0-16.0 [facility] CenterEolywsaXEQTSCCAWF7176-64-28 19:24:00 Test Item Value Reference Range Interpretation Comments RDW (test code = RDW) 13.5 11.5-14.5 [facility] CenterKyibjggHYTPCUBOUL8945-26-69 19:24:00 Test Item Value Reference Range Interpretation Comments MCHC (test code = MCHC) 34.0 32.0-36.0 [facility] Cent[id number] 19:24:00 Test Item Value Reference Range Interpretation Comments MCH (test code = MCH) 30.6 pg 27.0-31.0 [facility] CenterHjnbwzcQHMJPPLAXI6922-01-09 19:24:00 Test Item Value Reference Range Interpretation Comments MPV (test code = MPV) 8.1 7.4-10.4 [facility] CenterDzcjuheUJRPWAFDIV9108-59-01 19:24:00 Test Item Value Reference Range Interpretation Comments Stomatocyte (test code = Stomatocyte) [facility]NfmtxheLDUDOUNSZV6121-29-23 19:24:00 Test Item Value Reference Range Interpretation Comments Basophils # (test code 0.1 See_Comment [Aut omated message] The = Basophils #) system which generated this result tra nsmitted reference range : <=0.2. The reference r ozzy was not used to int erpret this result as normal/abnormal . [facility] Cent[id number] 19:24:00 Test Item Value Reference Range Interpretation Comments Eosinophils # (test code 0.2 See_Comment [A utomated message] The = Eosinophils #) system whic h generated this result tra nsmitted reference range : <=0.5. The reference r ozzy was not used to int erpret this result as normal/abnormal . [facility] CenterOflqljjOOGJPIESIC2780-24-13 19:24:00 Test Item Value Reference Range Interpretation Comments Hypochrom (test code = 1+ (08/24/14 1:24 PM) Hypochrom) [facility] CenterDruxgmnKUCEQAWRFG7125-96-95 19:24:00 Test Item Value Reference Range Interpretation Comments Lymphocytes # (test code = Lymphocytes 2.8 1.0-5.5 #) [facility] CenterZczumvdVGJXWGCQRS7004-36-81 19:24:00 Test Item Value Reference Range Interpretation Comments Segs-Bands # (test code = Segs-Bands #) 8.1 1.5-8.1 [facility] Cent[id number] 19:24:00 Test Item Value Reference Range Interpretation Comments Monocytes # (test code 0.2 See_Comment [Aut omated message] The = Monocytes #) system which generated this result tra nsmitted reference range : <=0.8. The reference r ozzy was not used to int erpret this result as normal/abnormal . [facility] CenterJbdqzucVJBPDBLOYN0963-72-96 19:24:00 Test Item Value Reference Range Interpretation Comments Lymphocytes (test code = Lymphocytes) 24.5 20.0-40.0 [facility] Cent[id number] 19:24:00 Test Item Value Reference Range Interpretation Comments Segs (test code = Segs) 71.8 45.0-75.0 [facility] CenterHlaevwbTYPGKVECLA2065-07-12 19:24:00 Test Item Value Reference Range Interpretation Comments Basophils (test code = 0.6 See_Comment [Aut omated message] The Basophils) system which ge nerated this result tra nsmitted reference range : <=1.0. The reference r ozzy was not used to int erpret this result as normal/abnormal . [facility] CenterDdjyvslLNJISOVSLO3809-47-97 19:24:00 Test Item Value Reference Range Interpretation Comments Monocytes (test code = Monocytes) 1.5 2.0-12.0 [facility] CenterIyetbkmBUEYXJKVAQ5557-92-42 19:24:00 Test Item Value Reference Range Interpretation Comments Eosinophils (test code = 1.6 See_Comment [A utomated message] The Eosinophils) system which ge nerated this result tra nsmitted reference range : <=4.0. The reference r ozzy was not used to int erpret this result as normal/abnormal . [facility] CenterUjstgqaSYIAJMTMBM8802-19-15 19:24:00 Test Item Value Reference Range Interpretation Comments Plt Morph (test code = Normal (08/24/14 1:24 Plt Morph) PM) [facility] AND [id number] 19:24:00 Test Item Value Reference Range Interpretation Comments UA Sq Epi (test code = UA Sq Occasional /LPF Epi) [facility] AND [id number] 19:24:00 Test Item Value Reference Range Interpretation Comments UA Bacteria (test code = UA Occasional /HPF Bacteria) [facility] AND [id number] 19:24:00 Test Item Value Reference Range Interpretation Comments UA Mucus (test code = None Seen (08/24/14 UA Mucus) 1:24 PM) [facility] AND [id number] 19:24:00 Test Item Value Reference Range Interpretation Comments UA WBC (test code = UA WBC) 0-2 /HPF [facility] AND [id number] 19:24:00 Test Item Value Reference Range Interpretation Comments UA RBC (test code = 0-2 /HPF See_Comment [Automa gaye message] The UA RBC) system which ge nerated this result tra nsmitted reference range : <=2. The reference range was not used to interpr et this result as satish l/abnormal. [facility] AND [id number] 19:24:00 Test Item Value Reference Range Interpretation Comments UA Leuk Est (test Moderate *ABN*(08/24/14 code = UA Leuk Est) 1:24 PM) [facility] AND [id number] 19:24:00 Test Item Value Reference Range Interpretation Comments UA Nitrite (test code Negative (08/24/14 1:24 = UA Nitrite) PM) [facility] AND [id number] 19:24:00 Test Item Value Reference Range Interpretation Comments UA Urobilinogen (test code = UA 0.2 0.1-1.0 Urobilinogen) [facility] AND [id number] 19:24:00 Test Item Value Reference Range Interpretation Comments UA Ketones (test code Negative *NA*(08/24/14 = UA Ketones) 1:24 PM) [facility] AND [id number] 19:24:00 Test Item Value Reference Range Interpretation Comments UA Blood (test code = Negative (08/24/14 1:24 UA Blood) PM) [facility] AND [id number] 19:24:00 Test Item Value Reference Range Interpretation Comments UA Bili (test code = Negative *NA*(08/24/14 UA Bili) 1:24 PM) [facility] AND [id number] 19:24:00 Test Item Value Reference Range Interpretation Comments UA Color (test code = Yellow *NA*(08/24/14 UA Color) 1:24 PM) [facility] AND [id number] 19:24:00 Test Item Value Reference Range Interpretation Comments UA Glucose (test code Negative (08/24/14 1:24 = UA Glucose) PM) [facility] AND [id number] 19:24:00 Test Item Value Reference Range Interpretation Comments UA Protein (test code Negative (08/24/14 1:24 = UA Protein) PM) [facility] AND [id number] 19:24:00 Test Item Value Reference Range Interpretation Comments UA pH (test code = UA pH) 6.0 1 5.0-8.0 [facility] AND [id number] 19:24:00 Test Item Value Reference Range Interpretation Comments UA Spec Grav (test code *NA*(08/24/14 1:24 PM) = UA Spec Grav) [facility] AND [id number] 19:24:00 Test Item Value Reference Range Interpretation Comments UA Turbidity (test code = Clear (08/24/14 1:24 UA Turbidity) PM) [facility]2015-01-12 19:24:00 Test Item Value Reference Range Interpretation Comments Lipase Lvl (test code = Lipase Lvl) 104 73-393 [facility]2015-01-12 19:24:00 Test Item Value Reference Range Interpretation Comments eGFR (test code = eGFR) 109 [facility]2015-01-12 19:24:00 Test Item Value Reference Range Interpretation Comments Bili Total (test code = Bili Total) 0.6 0.2-1.3 [facility]2015-01-12 19:24:00 Test Item Value Reference Range Interpretation Comments Alk Phos (test code = Alk Phos) 72 39-136 [facility]2015-01-12 19:24:00 Test Item Value Reference Range Interpretation Comments Calcium Lvl (test code = Calcium Lvl) 8.8 8.5-10.5 [facility]2015-01-12 19:24:00 Test Item Value Reference Range Interpretation Comments CO2 (test code = CO2) 28 24-32 [facility]2015-01-12 19:24:00 Test Item Value Reference Range Interpretation Comments Chloride Lvl (test code = Chloride Lvl) 107 95-109 [facility]2015-01-12 19:24:00 Test Item Value Reference Range Interpretation Comments Potassium Lvl (test code = Potassium 3.9 3.5-5.1 Lvl) [facility]2015-01-12 19:24:00 Test Item Value Reference Range Interpretation Comments Glucose Lvl (test code = Glucose Lvl) 90 70-99 [facility]2015-01-12 19:24:00 Test Item Value Reference Range Interpretation Comments Sodium Lvl (test code = Sodium Lvl) 138 135-145 [facility]2015-01-12 19:24:00 Test Item Value Reference Range Interpretation Comments BUN (test code = BUN) 7 7-22 [facility]2015-01-12 19:24:00 Test Item Value Reference Range Interpretation Comments Creatinine Lvl (test code = Creatinine 0.7 0.5-1.4 Lvl) [facility]2015-01-12 19:24:00 Test Item Value Reference Range Interpretation Comments ALT (test code = ALT) 23 See_Comment [Auto mated message] The system which ge nerated this result transmit gaye reference range : <=65. The reference range was not used to interpr et this result as satish l/abnormal. [facility]2015-01-12 19:24:00 Test Item Value Reference Range Interpretation Comments AST (test code = AST) 12 See_Comment [Auto mated message] The system which ge nerated this result transmit gaye reference range : <=37. The reference range was not used to interpr et this result as satish l/abnormal. [facility]2015-01-12 19:24:00 Test Item Value Reference Range Interpretation Comments Albumin Lvl (test code = Albumin Lvl) 3.8 3.5-5.0 [facility]2015-01-12 19:24:00 Test Item Value Reference Range Interpretation Comments Total Protein (test code = Total 8.0 6.4-8.4 Protein) [facility]2015-01-12 19:24:00 Test Item Value Reference Range Interpretation Comments A/G Ratio (test code = A/G Ratio) 0.9 0.7-1.6 [facility]2015-01-12 19:24:00 Test Item Value Reference Range Interpretation Comments AGAP (test code = AGAP) 6.9 10.0-20.0 [facility]2015-01-12 19:24:00 Test Item Value Reference Range Interpretation Comments B/C Ratio (test code = B/C Ratio) 10 6-25 [facility]2015-01-12 19:24:00 Test Item Value Reference Range Interpretation Comments Globulin (test code = Globulin) 4.2 2.0-4.0 [id number] 19:24:00 Test Item Value Reference Range Interpretation Comments S Preg (test code = S Negative *NA*(08/24/14 Preg) 1:24 PM) [id number] 19:24:00 Test Item Value Reference Range Interpretation Comments WBC (test code = WBC) 11.3 3.7-10.4 [facility] CenterIvozstkNPQMLGVUKT0213-80-03 19:24:00 Test Item Value Reference Range Interpretation Comments RBC (test code = RBC) 4.75 4.20-5.40 [facility] [id number] 19:24:00 Test Item Value Reference Range Interpretation Comments Platelet (test code = Platelet) 402 133-450 [facility] CenterVqaqyksSYTASQAXXW6658-19-99 19:24:00 Test Item Value Reference Range Interpretation Comments MCV (test code = MCV) 89.9 80.0-98.0 [facility] CenterEttclpmAFAKADGHPO4141-38-75 19:24:00 Test Item Value Reference Range Interpretation Comments Hct (test code = Hct) 42.7 36.0-48.0 [facility] CenterBbqmaunTRGHRRWUWJ0122-53-53 19:24:00 Test Item Value Reference Range Interpretation Comments Hgb (test code = Hgb) 14.5 12.0-16.0 [facility] CenterOxbthxiXYDOUJYLVU2324-71-13 19:24:00 Test Item Value Reference Range Interpretation Comments RDW (test code = RDW) 13.5 11.5-14.5 [facility] CenterQkrmdffDYCREOWLAF5600-69-49 19:24:00 Test Item Value Reference Range Interpretation Comments MCHC (test code = MCHC) 34.0 32.0-36.0 [facility] CenterNbppbgvSBMPCZIXZC6004-20-76 19:24:00 Test Item Value Reference Range Interpretation Comments MCH (test code = MCH) 30.6 pg 27.0-31.0 [facility] CenterMjuvbpdFOIYSNHZQD9248-34-53 19:24:00 Test Item Value Reference Range Interpretation Comments MPV (test code = MPV) 8.1 7.4-10.4 [facility] CenterWjdacpkXNRKKXLACY0830-77-57 19:24:00 Test Item Value Reference Range Interpretation Comments Stomatocyte (test code = Stomatocyte) [facility] CenterKtnmmvpHJTCVBTOCR2967-93-17 19:24:00 Test Item Value Reference Range Interpretation Comments Basophils # (test code 0.1 See_Comment [Aut omated message] The = Basophils #) system which generated this result tra nsmitted reference range : <=0.2. The reference r ozzy was not used to int erpret this result as normal/abnormal . [facility] CenterFvnjitxHHWTZPHDAE4901-91-56 19:24:00 Test Item Value Reference Range Interpretation Comments Eosinophils # (test code 0.2 See_Comment [A utomated message] The = Eosinophils #) system whic h generated this result tra nsmitted reference range : <=0.5. The reference r ozzy was not used to int erpret this result as normal/abnormal . [facility] CenterCwcpabwRZSSPQVQBK8399-15-05 19:24:00 Test Item Value Reference Range Interpretation Comments Hypochrom (test code = 1+ (08/24/14 1:24 PM) Hypochrom) [facility] CenterCnadqyePQAIFWRAOH9216-20-38 19:24:00 Test Item Value Reference Range Interpretation Comments Lymphocytes # (test code = Lymphocytes 2.8 1.0-5.5 #) [facility] CenterNhrjjfqKFZAZRBJGW6901-18-12 19:24:00 Test Item Value Reference Range Interpretation Comments Segs-Bands # (test code = Segs-Bands #) 8.1 1.5-8.1 [facility] CenterYtvdmjqMSSEERUFHT5247-45-61 19:24:00 Test Item Value Reference Range Interpretation Comments Monocytes # (test code 0.2 See_Comment [Aut omated message] The = Monocytes #) system which generated this result tra nsmitted reference range : <=0.8. The reference r ozzy was not used to int erpret this result as normal/abnormal . [facility] CenterWkrpznbNDEUUYFBIB6580-80-81 19:24:00 Test Item Value Reference Range Interpretation Comments Lymphocytes (test code = Lymphocytes) 24.5 20.0-40.0 [facility] CenterRyrhcldVUEVZFIRYX2652-94-32 19:24:00 Test Item Value Reference Range Interpretation Comments Segs (test code = Segs) 71.8 45.0-75.0 [facility] CenterNkghbqzEMZDKRLQAV7365-28-45 19:24:00 Test Item Value Reference Range Interpretation Comments Basophils (test code = 0.6 See_Comment [Aut omated message] The Basophils) system which ge nerated this result tra nsmitted reference range : <=1.0. The reference r ozzy was not used to int erpret this result as normal/abnormal . [facility] CenterPlrqikwRXVMANODIF9651-60-44 19:24:00 Test Item Value Reference Range Interpretation Comments Monocytes (test code = Monocytes) 1.5 2.0-12.0 [facility] CenterKiuebstUDNLQXPTVD7117-42-37 19:24:00 Test Item Value Reference Range Interpretation Comments Eosinophils (test code = 1.6 See_Comment [A utomated message] The Eosinophils) system which ge nerated this result tra nsmitted reference range : <=4.0. The reference r ozzy was not used to int erpret this result as normal/abnormal . [facility]KlpujomFQKVNUZKCZ4921-88-58 19:24:00 Test Item Value Reference Range Interpretation Comments Plt Morph (test code = Normal (08/24/14 1:24 Plt Morph) PM) [facility] AND [id number] 19:24:00 Test Item Value Reference Range Interpretation Comments UA Sq Epi (test code = UA Sq Occasional /LPF Epi) [facility] AND [id number] 19:24:00 Test Item Value Reference Range Interpretation Comments UA Bacteria (test code = UA Occasional /HPF Bacteria) [facility] AND [id number] 19:24:00 Test Item Value Reference Range Interpretation Comments UA Mucus (test code = None Seen (08/24/14 UA Mucus) 1:24 PM) [facility] AND [id number] 19:24:00 Test Item Value Reference Range Interpretation Comments UA WBC (test code = UA WBC) 0-2 /HPF [facility] AND [id number] 19:24:00 Test Item Value Reference Range Interpretation Comments UA RBC (test code = 0-2 /HPF See_Comment [Automa gaye message] The UA RBC) system which ge nerated this result tra nsmitted reference range : <=2. The reference range was not used to interpr et this result as satish l/abnormal. [facility] AND [id number] 19:24:00 Test Item Value Reference Range Interpretation Comments UA Leuk Est (test Moderate *ABN*(08/24/14 code = UA Leuk Est) 1:24 PM) [facility] AND [id number] 19:24:00 Test Item Value Reference Range Interpretation Comments UA Nitrite (test code Negative (08/24/14 1:24 = UA Nitrite) PM) [facility] AND [id number] 19:24:00 Test Item Value Reference Range Interpretation Comments UA Urobilinogen (test code = UA 0.2 0.1-1.0 Urobilinogen) [facility] AND [id number] 19:24:00 Test Item Value Reference Range Interpretation Comments UA Ketones (test code Negative *NA*(08/24/14 = UA Ketones) 1:24 PM) [facility] AND [id number] 19:24:00 Test Item Value Reference Range Interpretation Comments UA Blood (test code = Negative (08/24/14 1:24 UA Blood) PM) [facility] AND [id number] 19:24:00 Test Item Value Reference Range Interpretation Comments UA Bili (test code = Negative *NA*(08/24/14 UA Bili) 1:24 PM) [facility] AND [id number] 19:24:00 Test Item Value Reference Range Interpretation Comments UA Color (test code = Yellow *NA*(08/24/14 UA Color) 1:24 PM) [facility] AND [id number] 19:24:00 Test Item Value Reference Range Interpretation Comments UA Glucose (test code Negative (08/24/14 1:24 = UA Glucose) PM) [facility] AND [id number] 19:24:00 Test Item Value Reference Range Interpretation Comments UA Protein (test code Negative (08/24/14 1:24 = UA Protein) PM) [facility] AND [id number] 19:24:00 Test Item Value Reference Range Interpretation Comments UA pH (test code = UA pH) 6.0 1 5.0-8.0 [facility] AND [id number] 19:24:00 Test Item Value Reference Range Interpretation Comments UA Spec Grav (test code *NA*(08/24/14 1:24 PM) = UA Spec Grav) [facility] AND [id number] 19:24:00 Test Item Value Reference Range Interpretation Comments UA Turbidity (test code = Clear (08/24/14 1:24 UA Turbidity) PM) [facility] [id number] 19:24:00 Test Item Value Reference Range Interpretation Comments Lipase Lvl (test code = Lipase Lvl) 104 73-393 [facility]2015-01-12 19:24:00 Test Item Value Reference Range Interpretation Comments eGFR (test code = eGFR) 109 [facility]2015-01-12 19:24:00 Test Item Value Reference Range Interpretation Comments Bili Total (test code = Bili Total) 0.6 0.2-1.3 [facility]2015-01-12 19:24:00 Test Item Value Reference Range Interpretation Comments Alk Phos (test code = Alk Phos) 72 39-136 [facility]2015-01-12 19:24:00 Test Item Value Reference Range Interpretation Comments Calcium Lvl (test code = Calcium Lvl) 8.8 8.5-10.5 [facility]2015-01-12 19:24:00 Test Item Value Reference Range Interpretation Comments CO2 (test code = CO2) 28 24-32 [place] [id number] 19:24:00 Test Item Value Reference Range Interpretation Comments Chloride Lvl (test code = Chloride Lvl) 107 95-109 [facility]2015-01-12 19:24:00 Test Item Value Reference Range Interpretation Comments Potassium Lvl (test code = Potassium 3.9 3.5-5.1 Lvl) [facility]2015-01-12 19:24:00 Test Item Value Reference Range Interpretation Comments Glucose Lvl (test code = Glucose Lvl) 90 70-99 [facility]2015-01-12 19:24:00 Test Item Value Reference Range Interpretation Comments Sodium Lvl (test code = Sodium Lvl) 138 135-145 [facility]2015-01-12 19:24:00 Test Item Value Reference Range Interpretation Comments BUN (test code = BUN) 7 7-22 [facility]2015-01-12 19:24:00 Test Item Value Reference Range Interpretation Comments Creatinine Lvl (test code = Creatinine 0.7 0.5-1.4 Lvl) [facility]2015-01-12 19:24:00 Test Item Value Reference Range Interpretation Comments ALT (test code = ALT) 23 See_Comment [Auto mated message] The system which ge nerated this result transmit gaye reference range : <=65. The reference range was not used to interpr et this result as satish l/abnormal. [facility]2015-01-12 19:24:00 Test Item Value Reference Range Interpretation Comments AST (test code = AST) 12 See_Comment [Auto mated message] The system which ge nerated this result transmit gaye reference range : <=37. The reference range was not used to interpr et this result as satish l/abnormal. [facility]2015-01-12 19:24:00 Test Item Value Reference Range Interpretation Comments Albumin Lvl (test code = Albumin Lvl) 3.8 3.5-5.0 [facility]2015-01-12 19:24:00 Test Item Value Reference Range Interpretation Comments Total Protein (test code = Total 8.0 6.4-8.4 Protein) [facility]2015-01-12 19:24:00 Test Item Value Reference Range Interpretation Comments A/G Ratio (test code = A/G Ratio) 0.9 0.7-1.6 [place] [id number] 19:24:00 Test Item Value Reference Range Interpretation Comments AGAP (test code = AGAP) 6.9 10.0-20.0 [facility]2015-01-12 19:24:00 Test Item Value Reference Range Interpretation Comments B/C Ratio (test code = B/C Ratio) 10 6-25 [facility]2015-01-12 19:24:00 Test Item Value Reference Range Interpretation Comments Globulin (test code = Globulin) 4.2 2.0-4.0 [facility] 19:24:00 Test Item Value Reference Range Interpretation Comments S Preg (test code = S Negative *NA*(08/24/14 Preg) 1:24 PM) [facility]ocswwjXTLTKVRMCW5989-11-63 19:24:00 Test Item Value Reference Range Interpretation Comments WBC (test code = WBC) 11.3 3.7-10.4 [facility] CenterCxylcfcSZLWGTKTIQ5945-60-59 19:24:00 Test Item Value Reference Range Interpretation Comments RBC (test code = RBC) 4.75 4.20-5.40 [facility] CenterVbutgonBSNRMRGVWJ3543-65-43 19:24:00 Test Item Value Reference Range Interpretation Comments Platelet (test code = Platelet) 402 133-450 [facility] CenterEfgnwllJAXEIOWYYI8789-39-68 19:24:00 Test Item Value Reference Range Interpretation Comments MCV (test code = MCV) 89.9 80.0-98.0 [facility] CenterWabudhpCTXKBLDHJE0310-17-80 19:24:00 Test Item Value Reference Range Interpretation Comments Hct (test code = Hct) 42.7 36.0-48.0 [facility] CenterQpohwubLWGOBFVFTB6178-38-71 19:24:00 Test Item Value Reference Range Interpretation Comments Hgb (test code = Hgb) 14.5 12.0-16.0 [facility] CenterEqgrlwuNIFUWVLLNW5755-86-84 19:24:00 Test Item Value Reference Range Interpretation Comments RDW (test code = RDW) 13.5 11.5-14.5 [facility] CenterNbraxhoGJZMUWHKPR0254-52-29 19:24:00 Test Item Value Reference Range Interpretation Comments MCHC (test code = MCHC) 34.0 32.0-36.0 [facility] CenterXfaygauCPTXLZUXIX9481-24-31 19:24:00 Test Item Value Reference Range Interpretation Comments MCH (test code = MCH) 30.6 pg 27.0-31.0 [facility] CenterTjhmwwpDPZTJXCMFM4230-97-35 19:24:00 Test Item Value Reference Range Interpretation Comments MPV (test code = MPV) 8.1 7.4-10.4 [facility] CenterZlayiegRBRYMJEQNL5007-79-83 19:24:00 Test Item Value Reference Range Interpretation Comments Stomatocyte (test code = Stomatocyte) [facility] CenterVwioorlCDNHIWEGLX1362-66-71 19:24:00 Test Item Value Reference Range Interpretation Comments Basophils # (test code 0.1 See_Comment [Aut omated message] The = Basophils #) system which generated this result tra nsmitted reference range : <=0.2. The reference r ozzy was not used to int erpret this result as normal/abnormal . [facility] CenterGqvylmyOOHKSCAIEG6137-72-86 19:24:00 Test Item Value Reference Range Interpretation Comments Eosinophils # (test code 0.2 See_Comment [A utomated message] The = Eosinophils #) system whic h generated this result tra nsmitted reference range : <=0.5. The reference r ozzy was not used to int erpret this result as normal/abnormal . [facility] CenterWbzevauIUXLVICHSA2770-17-33 19:24:00 Test Item Value Reference Range Interpretation Comments Hypochrom (test code = 1+ (08/24/14 1:24 PM) Hypochrom) [facility] CenterEthsxvaPUOYJXYOTD3523-63-89 19:24:00 Test Item Value Reference Range Interpretation Comments Lymphocytes # (test code = Lymphocytes 2.8 1.0-5.5 #) [facility] CenterQwjwjehRRDFMONXLR9873-33-77 19:24:00 Test Item Value Reference Range Interpretation Comments Segs-Bands # (test code = Segs-Bands #) 8.1 1.5-8.1 [facility] CenterJhacdshPFPEAPKHDD2684-61-41 19:24:00 Test Item Value Reference Range Interpretation Comments Monocytes # (test code 0.2 See_Comment [Aut omated message] The = Monocytes #) system which generated this result tra nsmitted reference range : <=0.8. The reference r ozzy was not used to int erpret this result as normal/abnormal . [facility] CenterQnlsnjsOZXHJCIWAS6941-46-66 19:24:00 Test Item Value Reference Range Interpretation Comments Lymphocytes (test code = Lymphocytes) 24.5 20.0-40.0 [facility] CenterXocbcggDRJQDRXOIR4063-19-63 19:24:00 Test Item Value Reference Range Interpretation Comments Segs (test code = Segs) 71.8 45.0-75.0 [facility] CenterGvttfzoFLRJOSWZPU9292-70-28 19:24:00 Test Item Value Reference Range Interpretation Comments Basophils (test code = 0.6 See_Comment [Aut omated message] The Basophils) system which ge nerated this result tra nsmitted reference range : <=1.0. The reference r ozzy was not used to int erpret this result as normal/abnormal . [facility] CenterSvhuaswABDCTXUYOX8518-76-58 19:24:00 Test Item Value Reference Range Interpretation Comments Monocytes (test code = Monocytes) 1.5 2.0-12.0 [facility] CenterLzwhxvrVOOHHZCKSQ8267-54-88 19:24:00 Test Item Value Reference Range Interpretation Comments Eosinophils (test code = 1.6 See_Comment [A utomated message] The Eosinophils) system which ge nerated this result tra nsmitted reference range : <=4.0. The reference r ozzy was not used to int erpret this result as normal/abnormal . [facility] CenterPjbautdZTWABGHUFD6794-27-35 19:24:00 Test Item Value Reference Range Interpretation Comments Plt Morph (test code = Normal (08/24/14 1:24 Plt Morph) PM) [facility]2015-01-12 19:24:00 Test Item Value Reference Range Interpretation Comments UA Sq Epi (test code = UA Sq Occasional /LPF Epi) [facility] AND [id number] 19:24:00 Test Item Value Reference Range Interpretation Comments UA Bacteria (test code = UA Occasional /HPF Bacteria) [facility] AND [id number] 19:24:00 Test Item Value Reference Range Interpretation Comments UA Mucus (test code = None Seen (08/24/14 UA Mucus) 1:24 PM) [facility] AND [id number] 19:24:00 Test Item Value Reference Range Interpretation Comments UA WBC (test code = UA WBC) 0-2 /HPF [facility] AND [id number] 19:24:00 Test Item Value Reference Range Interpretation Comments UA RBC (test code = 0-2 /HPF See_Comment [Automa gaye message] The UA RBC) system which ge nerated this result tra nsmitted reference range : <=2. The reference range was not used to interpr et this result as satish l/abnormal. [facility] AND [id number] 19:24:00 Test Item Value Reference Range Interpretation Comments UA Leuk Est (test Moderate *ABN*(08/24/14 code = UA Leuk Est) 1:24 PM) [facility] AND [id number] 19:24:00 Test Item Value Reference Range Interpretation Comments UA Nitrite (test code Negative (08/24/14 1:24 = UA Nitrite) PM) [facility] AND [id number] 19:24:00 Test Item Value Reference Range Interpretation Comments UA Urobilinogen (test code = UA 0.2 0.1-1.0 Urobilinogen) [facility] AND [id number] 19:24:00 Test Item Value Reference Range Interpretation Comments UA Ketones (test code Negative *NA*(08/24/14 = UA Ketones) 1:24 PM) [facility] AND [id number] 19:24:00 Test Item Value Reference Range Interpretation Comments UA Blood (test code = Negative (08/24/14 1:24 UA Blood) PM) [facility] AND [id number] 19:24:00 Test Item Value Reference Range Interpretation Comments UA Bili (test code = Negative *NA*(08/24/14 UA Bili) 1:24 PM) [facility] AND [id number] 19:24:00 Test Item Value Reference Range Interpretation Comments UA Color (test code = Yellow *NA*(08/24/14 UA Color) 1:24 PM) [facility] AND [id number] 19:24:00 Test Item Value Reference Range Interpretation Comments UA Glucose (test code Negative (08/24/14 1:24 = UA Glucose) PM) [facility] AND [id number] 19:24:00 Test Item Value Reference Range Interpretation Comments UA Protein (test code Negative (08/24/14 1:24 = UA Protein) PM) [facility] AND [id number] 19:24:00 Test Item Value Reference Range Interpretation Comments UA pH (test code = UA pH) 6.0 1 5.0-8.0 [facility] AND [id number] 19:24:00 Test Item Value Reference Range Interpretation Comments UA Spec Grav (test code *NA*(08/24/14 1:24 PM) = UA Spec Grav) [facility] AND [id number] 19:24:00 Test Item Value Reference Range Interpretation Comments UA Turbidity (test code = Clear (08/24/14 1:24 UA Turbidity) PM) [facility]2015-01-12 19:24:00 Test Item Value Reference Range Interpretation Comments Lipase Lvl (test code = Lipase Lvl) 104 73-393 [facility]2015-01-12 19:24:00 Test Item Value Reference Range Interpretation Comments eGFR (test code = eGFR) 109 [facility]2015-01-12 19:24:00 Test Item Value Reference Range Interpretation Comments Bili Total (test code = Bili Total) 0.6 0.2-1.3 [facility]2015-01-12 19:24:00 Test Item Value Reference Range Interpretation Comments Alk Phos (test code = Alk Phos) 72 39-136 [facility]2015-01-12 19:24:00 Test Item Value Reference Range Interpretation Comments Calcium Lvl (test code = Calcium Lvl) 8.8 8.5-10.5 [facility]2015-01-12 19:24:00 Test Item Value Reference Range Interpretation Comments CO2 (test code = CO2) 28 24-32 [facility]2015-01-12 19:24:00 Test Item Value Reference Range Interpretation Comments Chloride Lvl (test code = Chloride Lvl) 107 95-109 [facility]2015-01-12 19:24:00 Test Item Value Reference Range Interpretation Comments Potassium Lvl (test code = Potassium 3.9 3.5-5.1 Lvl) [facility]2015-01-12 19:24:00 Test Item Value Reference Range Interpretation Comments Glucose Lvl (test code = Glucose Lvl) 90 70-99 [facility]2015-01-12 19:24:00 Test Item Value Reference Range Interpretation Comments Sodium Lvl (test code = Sodium Lvl) 138 135-145 [facility]2015-01-12 19:24:00 Test Item Value Reference Range Interpretation Comments BUN (test code = BUN) 7 7-22 [facility]2015-01-12 19:24:00 Test Item Value Reference Range Interpretation Comments Creatinine Lvl (test code = Creatinine 0.7 0.5-1.4 Lvl) [facility]2015-01-12 19:24:00 Test Item Value Reference Range Interpretation Comments ALT (test code = ALT) 23 <=65 [facility]2015-01-12 19:24:00 Test Item Value Reference Range Interpretation Comments AST (test code = AST) 12 <=37 [facility]2015-01-12 19:24:00 Test Item Value Reference Range Interpretation Comments Albumin Lvl (test code = Albumin Lvl) 3.8 3.5-5.0 [facility]2015-01-12 19:24:00 Test Item Value Reference Range Interpretation Comments Total Protein (test code = Total 8.0 6.4-8.4 Protein) [facility]2015-01-12 19:24:00 Test Item Value Reference Range Interpretation Comments A/G Ratio (test code = A/G Ratio) 0.9 0.7-1.6 [facility]2015-01-12 19:24:00 Test Item Value Reference Range Interpretation Comments AGAP (test code = AGAP) 6.9 10.0-20.0 [facility]2015-01-12 19:24:00 Test Item Value Reference Range Interpretation Comments B/C Ratio (test code = B/C Ratio) 10 6-25 [facility] [id number] 19:24:00 Test Item Value Reference Range Interpretation Comments Globulin (test code = Globulin) 4.2 2.0-4.0 [facility]heuigzBLJUUOEWBBYOP7598-86-88 19:24:00 Test Item Value Reference Range Interpretation Comments S Preg (test code = S Negative *NA*(08/24/14 Preg) 1:24 PM) [facility]VajfebwNRQGKCZRKL0790-54-45 19:24:00 Test Item Value Reference Range Interpretation Comments WBC (test code = WBC) 11.3 3.7-10.4 [facility] CenterYdburykPITTOYYLBX8956-81-84 19:24:00 Test Item Value Reference Range Interpretation Comments RBC (test code = RBC) 4.75 4.20-5.40 [facility] CenterUhobelvYQUQAOXIXL2965-63-64 19:24:00 Test Item Value Reference Range Interpretation Comments Platelet (test code = Platelet) 402 133-450 [facility] CenterJshqbqjLKVOOCYWET8321-79-80 19:24:00 Test Item Value Reference Range Interpretation Comments MCV (test code = MCV) 89.9 80.0-98.0 [facility] CenterAcwwojiBEHFYWPQMX1372-77-48 19:24:00 Test Item Value Reference Range Interpretation Comments Hct (test code = Hct) 42.7 36.0-48.0 [facility] CenterDjjoapjGOPSFNPYEQ8506-92-69 19:24:00 Test Item Value Reference Range Interpretation Comments Hgb (test code = Hgb) 14.5 12.0-16.0 [facility] CenterUwvxalpSGHCMGLHPN7221-46-43 19:24:00 Test Item Value Reference Range Interpretation Comments RDW (test code = RDW) 13.5 11.5-14.5 [facility] CenterWqkblpdWIENPQEJXC8827-14-68 19:24:00 Test Item Value Reference Range Interpretation Comments MCHC (test code = MCHC) 34.0 32.0-36.0 [facility] CenterYhalqeiTFZOMBMGTS7363-21-02 19:24:00 Test Item Value Reference Range Interpretation Comments MCH (test code = MCH) 30.6 pg 27.0-31.0 [facility] CenterWhdjlhaHOWYPBZXON6978-59-53 19:24:00 Test Item Value Reference Range Interpretation Comments MPV (test code = MPV) 8.1 7.4-10.4 [facility] CenterCidamucOGKCGJYRSU2104-73-89 19:24:00 Test Item Value Reference Range Interpretation Comments Stomatocyte (test code = Stomatocyte) [facility] CenterMzghjdbTSVNPPUDWX8321-54-10 19:24:00 Test Item Value Reference Range Interpretation Comments Basophils # (test code = Basophils #) 0.1 <=0.2 [facility] CenterKxtkyzdUCJWXGEDEU3256-40-44 19:24:00 Test Item Value Reference Range Interpretation Comments Eosinophils # (test code = Eosinophils 0.2 <=0.5 #) [facility] CenterQupbzqgIASAEPGDXD4561-22-14 19:24:00 Test Item Value Reference Range Interpretation Comments Hypochrom (test code = 1+ (08/24/14 1:24 PM) Hypochrom) [facility] CenterVnjxoffJTPDPMQJFM5150-80-58 19:24:00 Test Item Value Reference Range Interpretation Comments Lymphocytes # (test code = Lymphocytes 2.8 1.0-5.5 #) [facility] CenterMnfmrbhYEEAUUQKHL2199-60-01 19:24:00 Test Item Value Reference Range Interpretation Comments Segs-Bands # (test code = Segs-Bands #) 8.1 1.5-8.1 [facility] CenterAkjkxieMEZIGLGLYB2453-35-51 19:24:00 Test Item Value Reference Range Interpretation Comments Monocytes # (test code = Monocytes #) 0.2 <=0.8 [facility] CenterOdzwnweXBINAMMKUB4698-66-72 19:24:00 Test Item Value Reference Range Interpretation Comments Lymphocytes (test code = Lymphocytes) 24.5 20.0-40.0 [facility] CenterVochqnoYRUHADZTXF7597-87-58 19:24:00 Test Item Value Reference Range Interpretation Comments Segs (test code = Segs) 71.8 45.0-75.0 [facility] CenterSgwskcmDGLZYKBZEF5979-44-70 19:24:00 Test Item Value Reference Range Interpretation Comments Basophils (test code = Basophils) 0.6 <=1.0 [facility] CenterRzwbllhWTFFZKPJFY7492-43-27 19:24:00 Test Item Value Reference Range Interpretation Comments Monocytes (test code = Monocytes) 1.5 2.0-12.0 [facility] CenterLeepydrGOYCTOQHNV9935-79-08 19:24:00 Test Item Value Reference Range Interpretation Comments Eosinophils (test code = Eosinophils) 1.6 <=4.0 [facility]xldfWZPOEHIUDL1129-29-46 19:24:00 Test Item Value Reference Range Interpretation Comments Plt Morph (test code = Normal (08/24/14 1:24 Plt Morph) PM) [facility] AND [id number] 19:24:00 Test Item Value Reference Range Interpretation Comments UA Sq Epi (test code = UA Sq Occasional /LPF Epi) [facility] AND [id number] 19:24:00 Test Item Value Reference Range Interpretation Comments UA Bacteria (test code = UA Occasional /HPF Bacteria) [facility] AND [id number] 19:24:00 Test Item Value Reference Range Interpretation Comments UA Mucus (test code = None Seen (08/24/14 UA Mucus) 1:24 PM) [facility] AND [id number] 19:24:00 Test Item Value Reference Range Interpretation Comments UA WBC (test code = UA WBC) 0-2 /HPF [facility] AND [id number] 19:24:00 Test Item Value Reference Range Interpretation Comments UA RBC (test code = UA RBC) 0-2 /HPF <=2 [facility] AND [id number] 19:24:00 Test Item Value Reference Range Interpretation Comments UA Leuk Est (test Moderate *ABN*(08/24/14 code = UA Leuk Est) 1:24 PM) [facility] AND [id number] 19:24:00 Test Item Value Reference Range Interpretation Comments UA Nitrite (test code Negative (08/24/14 1:24 = UA Nitrite) PM) [facility] AND [id number] 19:24:00 Test Item Value Reference Range Interpretation Comments UA Urobilinogen (test code = UA 0.2 0.1-1.0 Urobilinogen) [facility] AND [id number] 19:24:00 Test Item Value Reference Range Interpretation Comments UA Ketones (test code Negative *NA*(08/24/14 = UA Ketones) 1:24 PM) [facility] AND [id number] 19:24:00 Test Item Value Reference Range Interpretation Comments UA Blood (test code = Negative (08/24/14 1:24 UA Blood) PM) [facility] AND [id number] 19:24:00 Test Item Value Reference Range Interpretation Comments UA Bili (test code = Negative *NA*(08/24/14 UA Bili) 1:24 PM) [facility] AND [id number] 19:24:00 Test Item Value Reference Range Interpretation Comments UA Color (test code = Yellow *NA*(08/24/14 UA Color) 1:24 PM) [facility] AND [id number] 19:24:00 Test Item Value Reference Range Interpretation Comments UA Glucose (test code Negative (08/24/14 1:24 = UA Glucose) PM) [facility] AND [id number] 19:24:00 Test Item Value Reference Range Interpretation Comments UA Protein (test code Negative (08/24/14 1:24 = UA Protein) PM) [facility] AND [id number] 19:24:00 Test Item Value Reference Range Interpretation Comments UA pH (test code = UA pH) 6.0 1 5.0-8.0 [facility] AND [id number] 19:24:00 Test Item Value Reference Range Interpretation Comments UA Spec Grav (test code *NA*(08/24/14 1:24 PM) = UA Spec Grav) [facility] AND [id number] 19:24:00 Test Item Value Reference Range Interpretation Comments UA Turbidity (test code = Clear (08/24/14 1:24 UA Turbidity) PM) [facility] Notes Date/Time Note Provider Source 2016-02-13 01:41:05 [id number]:41:05Chest 1view DX [facility] 02/13/2016 1:07 AM CDTOrdering Physician: Malorie Fishman MDCLINICAL HISTORY: Chest pain; TECHNIQUE: AP view of the chest were obtained.COMPARISON: NoneFINDINGS: Lungs are clear. No pleural effusion of pneumothorax is present. Cardiomediastinal silhouette is normal. Bones are normal. IMPRESSION:No acute abnormality of the chest.SL: [id number] ReportsLNDiagnostic ReportsTXTAVAvailable for patient careAtascadero State HospitalLfdxwhfzt8974-12-88V42:35:00 2016-02-13 01:41:05 3711-95-41L96:41:05Chest 1[facility] 02/13/2016 1:07 AM CDTOrdering Physician: ADELE VieiraLINICAL HISTORY: Chest pain; TECHNIQUE: AP view of the chest were obtained.COMPARISON: NoneFINDINGS: Lungs are clear. No pleural effusion of pneumothorax is present. Cardiomediastinal silhouette is normal. Bones are normal. IMPRESSION:No acute abnormality of the chest.SL: [id number] ReportsLNDiagnostic ReportsTXTAVAvailable for patient [place] [id number]:35:00 2016-02-13 01:41:05 [id number]:41:05Chest 1[facility] 02/13/2016 1:07 AM CDTOrdering Physician: ADELE VieiraLINICAL HISTORY: Chest pain; TECHNIQUE: AP view of the chest were obtained.COMPARISON: NoneFINDINGS: Lungs are clear. No pleural effusion of pneumothorax is present. Cardiomediastinal silhouette is normal. Bones are normal. IMPRESSION:No acute abnormality of the chest.SL: [id number] ReportsLNDiagnostic ReportsTXTAVAvailable for patient [facility] CenterGivoekznu6405-02-66U76:35:00 2016-02-13 01:41:05 [id number]:41:05Chest 1[facility] 02/13/2016 1:07 AM CDTOrdering Physician: ADELE VieiraLINICAL HISTORY: Chest pain; TECHNIQUE: AP view of the chest were obtained.COMPARISON: NoneFINDINGS: Lungs are clear. No pleural effusion of pneumothorax is present. Cardiomediastinal silhouette is normal. Bones are normal. IMPRESSION:No acute abnormality of the chest.SL: [id number] ReportsLNDiagnostic ReportsTXTAVAvailable for patient [place] [id number]:35:00 2016-02-13 01:41:05 5669-09-46M34:41:05Chest 1[facility] 02/13/2016 1:07 AM CDTOrdering Physician: Malorie Suzanne Fishman, MDCLINICAL HISTORY: Chest pain; TECHNIQUE: AP view of the chest were obtained.COMPARISON: NoneFINDINGS: Lungs are clear. No pleural effusion of pneumothorax is present. Cardiomediastinal silhouette is normal. Bones are normal. IMPRESSION:No acute abnormality of the chest.SL: [id number] ReportsLNDiagnostic ReportsTXTAVAvailable for patient [id number] ReportsLNAtascadero State HospitalBeasikssa2141-41-64P64:35:00 2015-06-08 15:25:56 [id number]: US PELVIS [facility] TRANSABDOMINALEXAM: US PELVIS TRANSVAGINAL INDICATION: Leiomyoma. COMPARISON: Pelvic ultrasound performed 12/02/2009. TECHNIQUE: Multiplanar grayscale and color Doppler ultrasound images of the pelvis were obtained transabdominally through a distended urinary bladder followed by transvaginal examination postvoid. FINDINGS: Limited visualization of the urinary bladder is unremarkable. The uterus is anteflexed and measures 9.8 x 5.0 x 6.5 cm. Endometrial thickness is 11 mm. No focal myometrial lesions are detected. Endometrium is slightly heterogeneous with more circumscribed hyperechoic area measuring 1.2 x 0.4 x 0.6 cm. No definite vascular stalk is not appreciated. The right ovary measures 2.7 x 1.9 x 1.8 cm and the left ovary measures 2.8 x 1.8 x 1.9 cm. No free fluid is identified. IMPRESSION: 1. No definite uterine fibroids are identified.2. Slight heterogeneity of the endometrium with suspected more circumscribed 1.2 cm hyperechoic lesion without vascular stalk. This is nonspecific, but most likely represents a small polyp. Confirmation can be performed with dedicated pelvic MRI if indicated.[id number] ReportsLNDiagnostic ReportsTXTAVAvailable for patient [facility]2015-10-28T11:02:00 2015-06-08 15:25:56 [id number]: US PELVIS [facility] [place] TRANSABDOMINALEXAM: US PELVIS TRANSVAGINAL INDICATION: Leiomyoma. COMPARISON: Pelvic ultrasound performed 12/02/2009. TECHNIQUE: Multiplanar grayscale and color Doppler ultrasound images of the pelvis were obtained transabdominally through a distended urinary bladder followed by transvaginal examination postvoid. FINDINGS: Limited visualization of the urinary bladder is unremarkable. The uterus is anteflexed and measures 9.8 x 5.0 x 6.5 cm. Endometrial thickness is 11 mm. No focal myometrial lesions are detected. Endometrium is slightly heterogeneous with more circumscribed hyperechoic area measuring 1.2 x 0.4 x 0.6 cm. No definite vascular stalk is not appreciated. The right ovary measures 2.7 x 1.9 x 1.8 cm and the left ovary measures 2.8 x 1.8 x 1.9 cm. No free fluid is identified. IMPRESSION: 1. No definite uterine fibroids are identified.2. Slight heterogeneity of the endometrium with suspected more circumscribed 1.2 cm hyperechoic lesion without vascular stalk. This is nonspecific, but most likely represents a small polyp. Confirmation can be performed with dedicated pelvic MRI if indicated.[id number] ReportsLNDiagnostic ReportsTXTAVAvailable for patient careST. [facility] SOFIA [id number]:02:00 2015-06-08 15:25:56 [id number]:25:56EXAM: US PELVIS [facility] TRANSABDOMINALEXAM: US PELVIS TRANSVAGINAL INDICATION: Leiomyoma. COMPARISON: Pelvic ultrasound performed 12/02/2009. TECHNIQUE: Multiplanar grayscale and color Doppler ultrasound images of the pelvis were obtained transabdominally through a distended urinary bladder followed by transvaginal examination postvoid. FINDINGS: Limited visualization of the urinary bladder is unremarkable. The uterus is anteflexed and measures 9.8 x 5.0 x 6.5 cm. Endometrial thickness is 11 mm. No focal myometrial lesions are detected. Endometrium is slightly heterogeneous with more circumscribed hyperechoic area measuring 1.2 x 0.4 x 0.6 cm. No definite vascular stalk is not appreciated. The right ovary measures 2.7 x 1.9 x 1.8 cm and the left ovary measures 2.8 x 1.8 x 1.9 cm. No free fluid is identified. IMPRESSION: 1. No definite uterine fibroids are identified.2. Slight heterogeneity of the endometrium with suspected more circumscribed 1.2 cm hyperechoic lesion without vascular stalk. This is nonspecific, but most likely represents a small polyp. Confirmation can be performed with dedicated pelvic MRI if indicated.[id number] ReportsLNDiagnostic ReportsTXTAVAvailable for patient [facility]2015-10-28T11:02:00 2015-06-08 15:25:56 [id number]: US PELVIS [facility] TRANSABDOMINALEXAM: US PELVIS TRANSVAGINAL INDICATION: Leiomyoma. COMPARISON: Pelvic ultrasound performed 12/02/2009. TECHNIQUE: Multiplanar grayscale and color Doppler ultrasound images of the pelvis were obtained transabdominally through a distended urinary bladder followed by transvaginal examination postvoid. FINDINGS: Limited visualization of the urinary bladder is unremarkable. The uterus is anteflexed and measures 9.8 x 5.0 x 6.5 cm. Endometrial thickness is 11 mm. No focal myometrial lesions are detected. Endometrium is slightly heterogeneous with more circumscribed hyperechoic area measuring 1.2 x 0.4 x 0.6 cm. No definite vascular stalk is not appreciated. The right ovary measures 2.7 x 1.9 x 1.8 cm and the left ovary measures 2.8 x 1.8 x 1.9 cm. No free fluid is identified. IMPRESSION: 1. No definite uterine fibroids are identified.2. Slight heterogeneity of the endometrium with suspected more circumscribed 1.2 cm hyperechoic lesion without vascular stalk. This is nonspecific, but most likely represents a small polyp. Confirmation can be performed with dedicated pelvic MRI if indicated.[id number] ReportsLNDiagnostic ReportsTXTAVAvailable for patient [facility]2015-10-28T11:02:00 2015-06-08 15:25:56 [id number]:[id number]: US PELVIS [facility] TRANSABDOMINALEXAM: US PELVIS TRANSVAGINAL INDICATION: Leiomyoma. COMPARISON: Pelvic ultrasound performed 12/02/2009. TECHNIQUE: Multiplanar grayscale and color Doppler ultrasound images of the pelvis were obtained transabdominally through a distended urinary bladder followed by transvaginal examination postvoid. FINDINGS: Limited visualization of the urinary bladder is unremarkable. The uterus is anteflexed and measures 9.8 x 5.0 x 6.5 cm. Endometrial thickness is 11 mm. No focal myometrial lesions are detected. Endometrium is slightly heterogeneous with more circumscribed hyperechoic area measuring 1.2 x 0.4 x 0.6 cm. No definite vascular stalk is not appreciated. The right ovary measures 2.7 x 1.9 x 1.8 cm and the left ovary measures 2.8 x 1.8 x 1.9 cm. No free fluid is identified. IMPRESSION: 1. No definite uterine fibroids are identified.2. Slight heterogeneity of the endometrium with suspected more circumscribed 1.2 cm hyperechoic lesion without vascular stalk. This is nonspecific, but most likely represents a small polyp. Confirmation can be performed with dedicated pelvic MRI if indicated.[id number] ReportsLNDiagnostic ReportsTXTAVAvailable for patient [id number] ReportsLNST. LUKE'S HOSPITAL [facility] [id number]:02:00
[2023-07-16 16:17] LABS: Specific Gravity 1.007 (1.005-1.030)
[2023-07-16 16:19] LABS: Specific Gravity 1.007 (1.005-1.030); Urine Bacteria <20 /HPF (<20); Urine Bilirubin NEGATIVE (Negative); Urine Blood Trace (Negative); Urine Clarity Turbid (Clear); Urine Color Colorless (Yellow); Urine Glucose NEGATIVE (Negative); Urine Mucus Slight /HPF (None Seen); Urine Protein NEGATIVE (Negative); Urine RBC <5 /HPF (None Seen); Urine Urobilinogen Normal (Normal)
--- NOTE | 2023-07-16 16:29 | RAD REPORT ---
EXAM DESCRIPTION: CT - Head Brain Wo Cont - 07/16/2023 4:11 pm CLINICAL HISTORY: Seizure;Headache Headache, drowsiness COMPARISON: Head Brain Wo Cont dated 04/25/2023; Head Brain Wo Cont dated 12/23/2021 TECHNIQUE: All CT scans are performed using dose optimization technique as appropriate and may inclu de automated exposure control or mA/KV adjustment according to patient size. FINDINGS: No intracranial hemorrhage, hydrocephalus or extra-axial fluid collection.No areas of brai n edema or evidence of midline shift. The paranasal sinuses and mastoids are clear. The calvarium is intact. IMPRESSION: No acute intracranial abnormality.
[2023-07-16] MEDS ORDERED: ALPRAZOLAM 0.25 MG TABLET ONE (16:41)
[2023-07-16] MEDS ORDERED: MORPHINE 4 MG/ML SYR ONE (16:46)
[2023-07-16] MEDS ORDERED: ONDANSETRON 4 MG/2 ML VIAL ONE (16:47)
[2023-07-16 16:49] LABS: Absolute Lymphocytes (CBC) 2.9 K/uL (0.7-4.9); Hematocrit 44.5 % (36.0-45.0); Lymphocytes % 29.5 % (15.3-44.8); MPV 7.4 fL (7.6-11.3); Platelets 379 thou/uL (152-406); RBC Red Blood Cell Count 4.95 M/uL (3.86-4.86)
[2023-07-16 17:05] LABS: ALT/SGPT 28 U/L (13-56); Albumin 3.4 g/dL (3.4-5.0); Alkaline Phosphatase 80 U/L (45-117); BUN Blood Urea Nitrogen 10 mg/dL (7-18); Bicarbonate 25 mEq/L (21-32); Bilirubin Total 0.6 mg/dL (0.2-1.0); Glomerular Filtration Rate 95 ml/min (=/>90); Glucose Level 102 mg/dL (74-106); Protein, Total 7.1 g/dL (6.4-8.2); Sodium Level 139 mEq/L (136-145)
[2023-07-16 17:06] LABS: AST/SGOT 23 U/L (15-37); Bilirubin Direct < 0.1 mg/dL (0-0.2); Bilirubin Indirect, Calculated ND mg/dL (0.2-0.8); Magnesium 2.1 mg/dL (1.6-2.4); Potassium 3.6 mEq/L (3.5-5.1)
--- NOTE | 2023-07-16 17:24 | ER ---
Nurse's Notes [facility] Name: Shanna uNr Age: 47 yrs Sex: Female : 1975 Arrival Date: 07/16/2023 Time: 15:01 Bed 20 Private MD: Diagnosis: Migraine headache, seizure Presentation: 07/16 15:41 Chief complaint: Patient states: has had between 30 and 40 seizures in past three days iw and having migraines and having a weird pain in her kidney , I was standing next to my co worker and I felt tight and dizzy and my skin was burning and I had swelling in my face and legs . Takes Vimpat and Keppra for seizures, is out of her migraine medicine Sumatriptan. Coronavirus screen: At this time, the client does not indicate any symptoms associated with coronavirus-19. Ebola Screen: Patient negative for fever greater than or equal to 101.5 degrees Fahrenheit, and additional compatible Ebola Virus Disease symptoms Patient denies exposure to infectious person. Patient denies travel to an Ebola-affected area in the 21 days before illness onset. No symptoms or risks identified at this time. Initial Sepsis Screen: Does the patient meet any 2 criteria? No. Patient's initial sepsis screen is negative. Does the patient have a suspected source of infection? No. Patient's initial sepsis screen is negative. Risk Assessment: Do you want to hurt yourself or someone else? Patient reports no desire to harm self or others. Onset of symptoms was July 13, 2023. 15:41 Method Of Arrival: Ambulatory iw 15:41 Acuity: JESUS 3 iw Triage Assessment: 15:45 General: Appears in no apparent distress. Behavior is calm, cooperative. Pain: iw Complains of pain in head. Neuro: Level of Consciousness is awake, alert, obeys commands, Oriented to person, place, time, situation. Historical: - Allergies: 15:44 Ibuprofen; iw 15:44 Iodine (Anaphylaxis); iw 15:44 Latex; iw 15:44 SEAFOOD; iw 15:44 Toradol; iw 15:44 tramadol; iw 15:44 Ultram; iw 15:44 Vancomycin; iw 15:44 Levaquin IV; iw 15:44 Phenergan; iw - PMHx: 15:45 Atrial fibrillation; Seizure; TBI; iw - PSHx: 15:44 Adenoid excision; Appendectomy; Cholecystectomy; L knee SX; Tonsillectomy; tubal iw ligation; - Immunization history:: Adult Immunizations up to date. - Social history:: Smoking status: Patient denies any tobacco usage or history of. Screenin:40 [facility] ED Fall Risk Assessment (Adult) History of falling in the last 3 months, mb9 including since admission No falls in past 3 months (0 pts) Confusion or Disorientation No (0 pts) Intoxicated or Sedated No (0 pts) Impaired Gait No (0 pts) Mobility Assist Device Used No (0 pt) Altered Elimination No (0 pt) Score/Fall Risk Level 0 - 2 = Low Risk Oriented to surroundings, Maintained a safe environment, Educated pt \T\ family on fall prevention, incl call for assistance when getting out of bed. Abuse screen: Denies threats or abuse. Nutritional screening: No deficits noted. Tuberculosis screening: No symptoms or risk factors identified. Assessment: 16:40 General: Appears in no apparent distress. Behavior is calm, cooperative, appropriate mb9 for age. Pain: Complains of pain in head Pain does not radiate. Pain currently is 10 out of 10 on a pain scale. Quality of pain is described as throbbing. Neuro: Vanessa Agitation-Sedation Scale (RASS): 0 - Alert and Calm Level of Consciousness is awake, alert, obeys commands, Oriented to person, place, time, situation, Appropriate for age Reports headache. Cardiovascular: Patient's skin is warm and dry. Respiratory: Airway is patent Respiratory effort is even, unlabored, Respiratory pattern is regular, symmetrical. GI: Abdomen is round non-distended, Bowel sounds present X 4 quads. Abd is soft and non tender X 4 quads. : No signs and/or symptoms were reported regarding the genitourinary system. EENT: No signs and/or symptoms were reported regarding the EENT system. Derm: Skin is pink, warm \T\ dry. Musculoskeletal: Range of motion: intact in all extremities. Vital Signs: 15:41 BP 136 / 87; Pulse 80; Resp 16; Temp 98.1; Pulse Ox 100% on R/A; Weight 68.04 kg; iw Height 5 ft. 3 in. ; 17:26 BP 136 / 94; Pulse 79; Resp 16; Pulse Ox 100% on R/A; mb9 15:41 Body Mass Index 26.57 (68.04 kg, 160.02 cm) iw Remy Coma Score: 15:45 Eye Response: spontaneous(4). Motor Response: obeys commands(6). Verbal Response: iw oriented(5). Total: 15. ED Course: 15:04 Patient arrived in ED. mg5 15:07 Ale Dolan MD is Attending Physician. sp3 15:44 Triage completed. iw 15:44 Arm band placed on. iw 16:14 CT Head Brain wo Cont In Process Unspecified. EDMS 16:23 Michelle Laguerre, RN is Primary Nurse. mb9 16:40 Basic Metabolic Panel Sent. mb9 16:40 Hepatic Function Sent. mb9 16:40 Magnesium Sent. mb9 16:41 Seizure precautions initiated. mb9 16:50 Inserted saline lock: 22 gauge in left hand, using aseptic technique. em1 17:32 No provider procedures requiring assistance completed. IV discontinued, intact, mb9 bleeding controlled, No redness/swelling at site. Pressure dressing applied. Administered Medications: 16:39 Not Given (not in hospital ): [id number] mg IVP once mb9 16:40 Drug: ALPRAZolam PO Tablet 0.25 mg PO once Route: PO; mb9 16:40 Drug: Ondansetron IVP 4 mg IVP once; over 2 minutes Route: IVP; Site: left hand; mb9 16:55 Drug: morphine IVP or IV 4 mg IVP once over 4 mins Route: IVP; Infused Over: 4 mins; mb9 Site: left hand; Medication: 16:41 VIS not applicable for this client. mb9 Outcome: 17:23 Discharge ordered by . sp3 17:32 Discharged to home ambulatory, mb9 17:32 Condition: stable 17:32 Discharge instructions given to patient, Instructed on discharge instructions, follow up and referral plans. Demonstrated understanding of instructions, follow-up care, medications, Prescriptions given X 1, 17:32 Patient left the ED. mb9 Signatures: Dispatcher [employer] EDMI Almaz Montoya RN RN iw Fernando Ramirez em1 Ale Dolan MD MD sp3 Michelle Laguerre, AUDI RN Bobbi Alaniz mg5 Corrections: (The following items were deleted from the chart) 15:44 15:41 Chief complaint: Patient states: has had between 30 and 40 seizures in past three iw days and having migraines and having a weird pain in her kidney , I was standing next to my co worker and I felt tight and dizzy and my skin was burning and I had swelling in my face and legs . Takes Vimpat and Keppra for seizures, is out of her migraine medicine iw
--- NOTE | 2023-07-16 17:24 | EDPHYS ---
Physician Documentation [facility] Name: Shanna Nur Age: 47 yrs Sex: Female : 1975 Arrival Date: 07/16/2023 Time: 15:01 Bed 20 Private MD: ED Physician Ale Dolan HPI: 07/16 16:12 This 47 yrs old Female presents to ER via Ambulatory with complaints of Seizure - sp3 Taking Meds, Body Swelling. 16:12 47-year-old female with history of seizures on Keppra, paroxysmal A-fib, fluid sp3 retention on Bumex as needed, migraine history who is out of sumatriptan and now presents to the ED with chief complaint migraine headache and decreased seizure threshold resulting in multiple seizures over the last 3 to 4 days. Patient states the seizures are her normal "tonic-clonic" pattern. She states that she also has not had any of her Xanax which she takes when the sort of thing happens in the past. She denies any direct trauma, fever, known sick contacts, travel history, any other signs or symptoms on ROS at this time.. Historical: - Allergies: 15:44 Ibuprofen; iw 15:44 Iodine (Anaphylaxis); iw 15:44 Latex; iw 15:44 SEAFOOD; iw 15:44 Toradol; iw 15:44 tramadol; iw 15:44 Ultram; iw 15:44 Vancomycin; iw 15:44 Levaquin IV; iw 15:44 Phenergan; iw - PMHx: 15:45 Atrial fibrillation; Seizure; TBI; iw - PSHx: 15:44 Adenoid excision; Appendectomy; Cholecystectomy; L knee SX; Tonsillectomy; tubal iw ligation; - Immunization history:: Adult Immunizations up to date. - Social history:: Smoking status: Patient denies any tobacco usage or history of. ROS: 16:14 Constitutional: Negative for fever, chills, and weight loss, Eyes: Negative for injury, sp3 pain, redness, and discharge, ENT: Negative for injury, pain, and discharge, Neck: Negative for injury, pain, and swelling, Cardiovascular: Negative for chest pain, palpitations, and edema, Respiratory: Negative for shortness of breath, cough, wheezing, and pleuritic chest pain, Abdomen/GI: Negative for abdominal pain, nausea, vomiting, diarrhea, and constipation, Back: Negative for injury and pain, MS/Extremity: Negative for injury and deformity, Skin: Negative for injury, rash, and discoloration, Allergy/Immunology: Negative for hives, rash, and allergies, Endocrine: Negative for neck swelling, polydipsia, polyuria, polyphagia, and marked weight changes, Hematologic/Lymphatic: Negative for swollen nodes, abnormal bleeding, and unusual bruising, 16:14 All other systems are negative, Exam: 16:14 Constitutional: This is a well developed, well nourished patient who is awake, alert, sp3 and in no acute distress. Head/Face: Normocephalic, atraumatic. Eyes: Pupils equal round and reactive to light, extra-ocular motions intact. Lids and lashes normal. Conjunctiva and sclera are non-icteric and not injected. Cornea within normal limits. Periorbital areas with no swelling, redness, or edema. ENT: Nares patent. No nasal discharge, no septal abnormalities noted. External auditory canals are clear. Oropharynx with no redness, swelling, or masses, exudates, or evidence of obstruction, uvula midline. Mucous membranes moist. Neck: Trachea midline, no thyromegaly or masses palpated, and no cervical lymphadenopathy. Supple, full range of motion without nuchal rigidity, or vertebral point tenderness. No Meningismus. Chest/axilla: Normal chest wall appearance and motion. Nontender with no deformity. No lesions are appreciated. Cardiovascular: Regular rate and rhythm with a normal S1 and S2. No gallops, murmurs, or rubs. Normal PMI, no JVD. No pulse deficits. Respiratory: Lungs have equal breath sounds bilaterally, clear to auscultation and percussion. No rales, rhonchi or wheezes noted. No increased work of breathing, no retractions or nasal flaring. Abdomen/GI: Soft, non-tender, with normal bowel sounds. No distension or tympany. No guarding or rebound. No evidence of tenderness throughout. Back: No spinal tenderness. No costovertebral tenderness. Full range of motion. Skin: Warm, dry with normal turgor. Normal color with no rashes, no lesions, and no evidence of cellulitis. MS/ Extremity: Pulses equal, no cyanosis. Neurovascular intact. Full, normal range of motion. Neuro: Awake and alert, GCS 15, oriented to person, place, time, and situation. Cranial nerves II-XII grossly intact. Motor strength 5/5 in all extremities. Sensory grossly intact. Cerebellar exam normal. Normal gait. Psych: Awake, alert, with orientation to person, place and time. Behavior, mood, and affect are within normal limits. Vital Signs: 15:41 BP 136 / 87; Pulse 80; Resp 16; Temp 98.1; Pulse Ox 100% on R/A; Weight 68.04 kg; iw Height 5 ft. 3 in. ; 17:26 BP 136 / 94; Pulse 79; Resp 16; Pulse Ox 100% on R/A; mb9 15:41 Body Mass Index 26.57 (68.04 kg, 160.02 cm) iw Remy Coma Score: 15:45 Eye Response: spontaneous(4). Motor Response: obeys commands(6). Verbal Response: iw oriented(5). Total: 15. MDM: 15:56 Patient medically screened. sp3 16:14 Data reviewed: vital signs, nurses notes, old medical records. ED course: 47-year-old sp3 female with PMH above now with increased headache and seizure being reported. No seizure activity in the ED. Will get CT scan of the head, laboratory values and administer Compazine IV and Xanax 0.25 mg p.o. Disposition pending work-up and patient course with probable discharge. I am not highly suspicious for meningitis, status epilepticus, electrolyte abnormality, or any other critical pathology at this time.. 17:21 ED course: Patient improved with medications. Work-up is negative and we will safely sp3 discharge patient home on p.o. sumatriptan 10 mg as needed. Follow-up with PCP.. 07/16 15:57 Order name: Basic Metabolic Panel; Complete Time: 17:13 3 07/16 15:57 Order name: CBC with Diff; Complete Time: 17:13 sp3 07/16 15:57 Order name: Hepatic Function; Complete Time: 17:13 sp3 07/16 15:57 Order name: Magnesium; Complete Time: 17:13 sp3 07/16 15:58 Order name: UAM; Complete Time: 16:49 sp3 07/16 15:58 Order name: Test, Urine; Complete Time: 16:49 sp3 07/16 15:57 Order name: CT Head Brain wo Cont; Complete Time: 16:49 sp3 07/16 15:57 Order name: IV Saline Lock; Complete Time: 16:50 sp3 07/16 15:57 Order name: Labs collected and sent; Complete Time: 16:39 sp3 07/16 15:57 Order name: NPO; Complete Time: 16:24 sp3 Administered Medications: 16:39 Not Given (not in hospital ): [id number] mg IVP once mb9 16:40 Drug: ALPRAZolam PO Tablet 0.25 mg PO once Route: PO; mb9 16:40 Drug: Ondansetron IVP 4 mg IVP once; over 2 minutes Route: IVP; Site: left hand; mb9 16:55 Drug: morphine IVP or IV 4 mg IVP once over 4 mins Route: IVP; Infused Over: 4 mins; mb9 Site: left hand; Disposition Summary: 07/16/23 17:23 Discharge Ordered Notes: Location: Home sp3 Condition: Stable sp3 Diagnosis - Migraine headache, seizure sp3 Followup: sp3 - With: Private Physician - When: Upon discharge from the Emergency Department - Reason: Continuance of care Discharge Instructions: - Discharge Summary Sheet sp3 - Migraine Headache sp3 Forms: - Medication Reconciliation Form sp3 - Thank You Letter sp3 - Antibiotic Education sp3 - Prescription Opioid Use sp3 - Patient Portal Instructions sp3 - Leadership Thank You Letter sp3 Prescriptions: - sumatriptan 20 mg/actuation Nasal spray, non-aerosol - spray 1 spray INTRANASAL route once into one nostril; if headache remains, may sp3 repeat dose into other nostril once after at least 2 hours; 2 Applicator; Refills: 0, Product Selection Permitted Signatures: Dispatcher [employer] Almaz Ag RN RN iw Patel, Setul, MD MD sp3 Michelle Laguerre RN RN mb9
[2023-07-16 17:57] VITALS: TEMP 98.1; O2SAT 100
[2023-07-16 17:59] VITALS: BP 136/94
== END 2023-07-16 17:32 | disposition home or self-care (01) ==
LOC: ER 15:01
DX: G43.909 Migraine, unspecified, not intractable, without status migrainosus (principal); G40.909 Epilepsy, unspecified, not intractable, without status epilepticus
CPT/HCPCS: 36415; 70450; 80048; 80076; 81001; 81025; 83735; 85025; 96374; 96375; 99284; J2405

== ENCOUNTER 2023-07-17 14:34 | Emergency (ER) | payer SELFPAY ==
--- NOTE | 2023-07-17 14:48 | EDPHYS ---
Physician Documentation [facility] Name: Shanna Nur Age: 47 yrs Sex: Female : 1975 Arrival Date: 07/17/2023 Time: 14:34 Bed 20 Private MD: ED Physician Ale Dolan HPI: 07/17 14:45 This 47 yrs old Female presents to ER via Unassigned with complaints of seizures. sp3 14:45 47-year-old female with history of seizure disorder not on any seizure medications and sp3 not seeing a neurologist currently now presents to the ED again for "myoclonic seizures" patient was seen yesterday and received CT scan of the head, laboratory values and extensive work-up. No seizure activity was witnessed yesterday in the ER. Today she is twitching but fully alert and oriented in no acute distress. She states she is under increased stress. Review of systems negative for headache, fever, injury, neck pain, chest pain, shortness of breath, back pain, abdominal pain, nausea, vomiting, diarrhea, syncope, near syncope, rash, known sick contacts, travel history, prolonged immobilization, or any other signs or symptoms on ROS at this time.. Historical: - Allergies: 14:37 Ibuprofen; mb9 14:37 Iodine (Anaphylaxis); mb9 14:37 Latex; mb9 14:37 Levaquin; mb9 14:37 Levaquin IV; mb9 14:37 Vancomycin; mb9 14:37 Ultram; mb9 14:37 tramadol; mb9 14:37 Toradol; mb9 14:37 SEAFOOD; mb9 14:37 Phenergan; mb9 - PMHx: 14:37 Atrial fibrillation; Seizure; TBI; mb9 - PSHx: 14:37 Adenoid excision; Appendectomy; Cholecystectomy; L knee SX; Tonsillectomy; tubal mb9 ligation; - Immunization history:: Adult Immunizations up to date. - Social history:: Smoking status: Patient denies any tobacco usage or history of. ROS: 14:46 Constitutional: Negative for fever, chills, and weight loss, Eyes: Negative for injury, sp3 pain, redness, and discharge, ENT: Negative for injury, pain, and discharge, Neck: Negative for injury, pain, and swelling, Cardiovascular: Negative for chest pain, palpitations, and edema, Respiratory: Negative for shortness of breath, cough, wheezing, and pleuritic chest pain, Abdomen/GI: Negative for abdominal pain, nausea, vomiting, diarrhea, and constipation, Back: Negative for injury and pain, MS/Extremity: Negative for injury and deformity, Skin: Negative for injury, rash, and discoloration, Psych: Negative for depression, anxiety, suicide ideation, homicidal ideation, and hallucinations, Allergy/Immunology: Negative for hives, rash, and allergies, Endocrine: Negative for neck swelling, polydipsia, polyuria, polyphagia, and marked weight changes, Hematologic/Lymphatic: Negative for swollen nodes, abnormal bleeding, and unusual bruising, 14:46 All other systems are negative, Exam: 14:46 Constitutional: This is a well developed, well nourished patient who is awake, alert, sp3 and in no acute distress. Head/Face: Normocephalic, atraumatic. Eyes: Pupils equal round and reactive to light, extra-ocular motions intact. Lids and lashes normal. Conjunctiva and sclera are non-icteric and not injected. Cornea within normal limits. Periorbital areas with no swelling, redness, or edema. ENT: Nares patent. No nasal discharge, no septal abnormalities noted. External auditory canals are clear. Oropharynx with no redness, swelling, or masses, exudates, or evidence of obstruction, uvula midline. Mucous membranes moist. Neck: Trachea midline, no thyromegaly or masses palpated, and no cervical lymphadenopathy. Supple, full range of motion without nuchal rigidity, or vertebral point tenderness. No Meningismus. Chest/axilla: Normal chest wall appearance and motion. Nontender with no deformity. No lesions are appreciated. Cardiovascular: Regular rate and rhythm with a normal S1 and S2. No gallops, murmurs, or rubs. Normal PMI, no JVD. No pulse deficits. Respiratory: Lungs have equal breath sounds bilaterally, clear to auscultation and percussion. No rales, rhonchi or wheezes noted. No increased work of breathing, no retractions or nasal flaring. Abdomen/GI: Soft, non-tender, with normal bowel sounds. No distension or tympany. No guarding or rebound. No evidence of tenderness throughout. Back: No spinal tenderness. No costovertebral tenderness. Full range of motion. Skin: Warm, dry with normal turgor. Normal color with no rashes, no lesions, and no evidence of cellulitis. MS/ Extremity: Pulses equal, no cyanosis. Neurovascular intact. Full, normal range of motion. Psych: Awake, alert, with orientation to person, place and time. Behavior, mood, and affect are within normal limits. 14:46 Neuro: Patient has a normal neurological exam and there is no seizure activity in the ER. She keeps twitching her right shoulder in a voluntary fashion., Vital Signs: 14:45 BP 136 / 77; Pulse 91; Resp 18; Pulse Ox 96% ; Weight 68.04 kg; Height 5 ft. 3 in. ; cm10 14:45 BP 116 / 69; Pulse 76; Resp 17; Temp 97.6; Pulse Ox 99% on R/A; rs5 14:45 Body Mass Index 26.57 (68.04 kg, 160.02 cm) cm10 MDM: 14:41 Patient medically screened. sp3 14:47 Data reviewed: vital signs, nurses notes, old medical records. ED course: Patient has sp3 no critical illness and has no seizure activity. I believe that she has pseudoseizures and underlying anxiety which is being provoked by her stressors in her life. We will give her 0.5 mg of Xanax x1 and discharge her to follow-up with Dr. Fuentes.. Administered Medications: 14:45 Drug: ALPRAZolam PO Tablet 0.5 mg PO once Route: PO; rs5 15:00 Follow up: Response: No adverse reaction rs5 Disposition Summary: 07/17/23 14:48 Discharge Ordered Notes: Location: Home sp3 Condition: Stable sp3 Diagnosis - Pseudoseizure, anxiety sp3 Followup: sp3 - With: Sam Fuentes MD - When: Upon discharge from the Emergency Department - Reason: Further diagnostic work-up Discharge Instructions: - Discharge Summary Sheet sp3 - Generalized Anxiety Disorder, Adult sp3 Forms: - Medication Reconciliation Form sp3 - Thank You Letter sp3 - Antibiotic Education sp3 - Prescription Opioid Use sp3 - Patient Portal Instructions sp3 - Leadership Thank You Letter sp3 Signatures: Ale Dolan MD MD sp3 Michelle Laguerre RN RN mb9 Reed, Beto, RN RN rs5
--- NOTE | 2023-07-17 14:48 | ER ---
Nurse's Notes [facility] Name: Shanna Nur Age: 47 yrs Sex: Female : 1975 Arrival Date: 07/17/2023 Time: 14:34 Bed 20 Private MD: Diagnosis: Pseudoseizure, anxiety Presentation: 07/17 14:45 Chief complaint: EMS states: Called to patient's residence due to having seizures. Pt cm10 states that she has had approximately 50 seizures since 0940 this morning. Coronavirus screen: Vaccine status: Patient reports being unvaccinated. Client denies travel out of the [place] in the last 14 days. Ebola Screen: Patient denies travel to an Ebola-affected area in the 21 days before illness onset. No symptoms or risks identified at this time. Initial Sepsis Screen: Does the patient meet any 2 criteria? No. Patient's initial sepsis screen is negative. Does the patient have a suspected source of infection? No. Patient's initial sepsis screen is negative. Risk Assessment: Do you want to hurt yourself or someone else? Patient reports no desire to harm self or others. Onset of symptoms was July 17, 2023. 14:45 Method Of Arrival: EMS: [facility] cm10 14:45 Acuity: JESUS 3 cm10 Historical: - Allergies: 14:37 Ibuprofen; mb9 14:37 Iodine (Anaphylaxis); mb9 14:37 Latex; mb9 14:37 Levaquin; mb9 14:37 Levaquin IV; mb9 14:37 Vancomycin; mb9 14:37 Ultram; mb9 14:37 tramadol; mb9 14:37 Toradol; mb9 14:37 SEAFOOD; mb9 14:37 Phenergan; mb9 - PMHx: 14:37 Atrial fibrillation; Seizure; TBI; mb9 - PSHx: 14:37 Adenoid excision; Appendectomy; Cholecystectomy; L knee SX; Tonsillectomy; tubal mb9 ligation; - Immunization history:: Adult Immunizations up to date. - Social history:: Smoking status: Patient denies any tobacco usage or history of. Screenin:40 [facility] ED Fall Risk Assessment (Adult) History of falling in the last 3 months, rs5 including since admission No falls in past 3 months (0 pts) Confusion or Disorientation No (0 pts) Intoxicated or Sedated No (0 pts) Impaired Gait No (0 pts) Mobility Assist Device Used No (0 pt) Altered Elimination No (0 pt) Score/Fall Risk Level 0 - 2 = Low Risk Oriented to surroundings, Maintained a safe environment. 14:40 Abuse screen: Denies threats or abuse. Nutritional screening: No deficits noted. rs5 Tuberculosis screening: No symptoms or risk factors identified. Assessment: 14:40 General: Appears in no apparent distress. uncomfortable, Behavior is calm, cooperative. rs5 Pain: Denies pain. Neuro: Level of Consciousness is awake, alert, obeys commands, Oriented to person, place, time, situation, [employer] are equal bilaterally Moves all extremities. Gait is steady, Speech is normal, Facial symmetry appears normal, Pupils are PERRLA, Pupil Size: 3 mm Intact. Cardiovascular: Heart tones S1 S2 present Rhythm is regular. Respiratory: Airway is patent Respiratory effort is even, unlabored, Respiratory pattern is regular, symmetrical, Breath sounds are clear bilaterally. GI: Abdomen is round non-distended, Bowel sounds present X 4 quads. Abd is soft and non tender X 4 quads. : No signs and/or symptoms were reported regarding the genitourinary system. EENT: No signs and/or symptoms were reported regarding the EENT system. Derm: Skin is intact, Skin is pink, warm \T\ dry. Musculoskeletal: Range of motion: intact in all extremities. Vital Signs: 14:45 BP 136 / 77; Pulse 91; Resp 18; Pulse Ox 96% ; Weight 68.04 kg; Height 5 ft. 3 in. ; cm10 14:45 BP 116 / 69; Pulse 76; Resp 17; Temp 97.6; Pulse Ox 99% on R/A; rs5 14:45 Body Mass Index 26.57 (68.04 kg, 160.02 cm) cm10 ED Course: 14:36 Patient arrived in ED. mb9 14:37 Ale Dolan MD is Attending Physician. sp3 14:38 Arm band placed on. mb9 14:40 Patient has correct armband on for positive identification. Placed in gown. Bed in low rs5 position. Call light in reach. Side rails up X2. 14:40 No provider procedures requiring assistance completed. rs5 14:46 Triage completed. cm10 14:47 Sam Fuentes MD is Referral Physician. sp3 14:49 Beto Reed, RN is Primary Nurse. rs5 15:00 Patient did not have IV access during this emergency room visit. rs5 Administered Medications: 14:45 Drug: ALPRAZolam PO Tablet 0.5 mg PO once Route: PO; rs5 15:00 Follow up: Response: No adverse reaction rs5 Medication: 15:00 VIS not applicable for this client. rs5 Outcome: 14:48 Discharge ordered by . sp3 15:00 Discharged to home ambulatory, rs5 15:00 Condition: stable 15:00 Discharge instructions given to patient, Instructed on discharge instructions, follow up and referral plans. Demonstrated understanding of instructions, follow-up care, 15:00 Patient left the ED. rs5 Signatures: Ale Dolan MD MD sp3 Michelle Laguerre, RN RN mb9 Beto Reed, RN RN rs5 Zoraida Ramirez RN RN cm10
[2023-07-17 15:05] VITALS: BP 136/77; TEMP 97.6; O2SAT 96
[2023-07-17] MEDS ORDERED: ALPRAZOLAM 0.5 MG TABLET ONE (15:05)
--- OUTSIDE RECORDS SUMMARY | 2023-07-17 15:21 | XMS REPORT | Continuity of Care Document ---
:1975 Author Organization [facility] t Address [address] [place] [address] Care Team Providers Name Role Phone THOM WOLFF Primary Care Physician [phone] LEANDRO OLIVARES Attending Clinician Unavailable FABRICIO ORTIZ Attending Clinician Unavailable Fabricio Conteh Attending Clinician MIHIR LUNA S Attending Clinician Unavailable Mihir Luna MD S Attending Clinician SIMRAN CONTEH Attending Clinician Unavailable Simran Conteh MD Attending Clinician Doctor Unassigned, [place] Attending Clinician Unavailable Halima Vargas MD Attending [...] Clinician Unavailable Bladimir Brumfield MD Attending Clinician [phone] Obdulio Ragland MD Attending Clinician MD OBDULIO RAGLAND Attending Clinician Unavailable Inez García MD Attending Clinician [phone] JUDE MATHEWS M.D. Attending Clinician Unavailable Woo Greenberg DO Attending Clinician [phone] [place] MD Attending Clinician Clarice Brannon MD Attending Clinician Lj Thakkar Attending Clinician MD LJ THAKKAR Attending Clinician Unavailable Jose Elias Torres MD Attending Clinician Lydia Oden MD Attending Clinician [phone] Maribel Dickey MD Attending Clinician MD [...] Unavailable BLAZE SQUIRES Admitting Clinician Unavailable MD BALZE SQUIRES Admitting Clinician Unavailable ORESTES DUONG Admitting Clinician Unavailable Payers Payer Name Policy Type Policy Number Effective Date Expiration Date S maurice [facility]AN [id number] 2020 STAR 00:00:00 [facility] STAR [id number] 2022 00:00:00 CDC REVIEW [id number] 2020 00:00:00 Problems Condition Condition Condition Status Onset Resolution Last Treating Co mments Source Name Details Category Date Date Treatment Clinician Date Traumatic Traumatic Disease Active Met hodi brain brain 12-06 st injury injury 00:00: Hospita 00 l Seizure-li Seizure-li Disease Active M ethodi ke ke 2 st activity activity 00:00: Hospit a 00 l Need for Need for Disease Active Metho di assistance assistance 05-08 due to due to 00:00: Hospita unsteady unsteady 00 l gait gait Seizures Seizures Disease Active Metho di 9 st 00:00: Hospita 00 l Dizziness Dizziness [...] 09:01:00 l Active 23:00: Antonio 02/12/2016 00 [facility] D25.9 - D25.9 - Diagnosis Active 2014-082015-06-08 Memoria "LEIOMYOMA "LEIOMYOMA 15:22:00 l OF UTERUS, OF UTERUS, 00:01: He rodger UNSPECIFI" UNSPECIFI" 00 Active 06/08/2015 SOFIA Alvarez VAGINAL VAGINAL Diagnosis Active 2014-12-21 Memoria BLEEDING- BLEEDING- - 13:01:00 l 6 WKS PG 6 WKS PG 00:00: Jordy roberto Active 00 09/03/2014 [facility] CONSTIPATI Diagnosis Active 2014-12-14 Memoria ON, NAUSEA CONSTIPATI - 09:23:00 l ON, NAUSEA 00:00: Jordy roberto Active 00 08/24/2014 [facility] History of History of Problem Resolve [facility] [...] active ity of problems problems [facility] Anemia Anemia Problem Resolve 2016-02-16 Mem oria (disorder) (disorder) d 00:25:42 l Resolved [place] Problem 02/16/2016 [facility] Migraine Migraine Problem Resolve 2016-02-16 Memoria (disorder) (disorder) d 00:25:42 l Resolved [place] Problem 02/16/2016 [facility] Mitral Mitral Problem Resolve 2016-02-16 Mem oria valve valve d 00:25:42 l prolapse prolapse Jordy n (disorder) (disorder) Resolved Problem 02/16/2016 [facility] Anxiety Anxiety Problem Active 2016-02-16 Me moria (finding) (finding) 00:25:42 l Active Antonio Problem 02/16/2016 [facility] Bipolar Bipolar Problem Active 2016-02-16 Me moria (qualifier (qualifier 00:25:42 l value) value) [place] Active Problem 02/16/2016 [facility] Congestive Congestiv Problem Active 2016-02-16 Memoria heart e heart 00:25:42 l failure failure Antonio (disorder) (disorder) Active Problem 02/16/2016 [facility] Depressive Depressiv Problem Active 2016-02-16 Memoria disorder e disorder 00:25:42 l (disorder) (disorder) He rmann Active Problem 02/16/2016 [facility] Gastroesop Gastroeso Problem Active 2016-02-16 Memoria hageal phageal 00:25:42 l reflux reflux Antonio disease disease (disorder) (disorder) Active Problem 02/16/2016 [facility] Heart Heart Problem Active 2016-02-16 Memor ia failure failure 00:25:42 l (disorder) (disorder) He rmann Active Problem 02/16/2016 [facility] Hypertensi Hypertens Problem Active 2016-02-16 Memoria ve kellee 00:25:42 l disorder, disorder, Herm alem systemic systemic arterial arterial (disorder) (disorder) Active Problem 02/16/2016 [facility] Multiple Multiple Problem Active 2016-02-16 Memoria sclerosis sclerosis 00:25:42 l (disorder) (disorder) He rmann Active Problem 02/16/2016 [facility] Osteoarthr Problem Active 2016-02-16 M emoria itis Osteoarthr 00:25:42 l (disorder) itis Jordy n (disorder) Active Problem 02/16/2016 [facility] Drug Drug Problem Active 2016-02-16 Memor ia overdose overdose 00:25:42 l (disorder) (disorder) He rmann Active Problem 02/16/2016 [facility] Rheumatoid Rheumatoi Problem Active 2016-02-16 Memoria arthritis d 00:25:42 l (disorder) arthritis Her sarkar (disorder) Active Problem 02/16/2016 [facility] 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 00:25:42 l (disorder) (disorder) He rmann Active Problem 02/16/2016 [facility] Uterine Uterine Problem Active 2016-02-16 Me moria leiomyoma leiomyoma 00:25:42 l (disorder) (disorder) He rmann Active Problem 02/16/2016 [facility] Urinary Urinary Problem Active 2016-02-16 Me moria tract tract 00:25:42 l infectious infectious He rmann disease disease (disorder) (disorder) Active Problem 02/16/2016 [facility] 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 History of Past Illness Condition Condition Condition Status Onset Resolution Last Treating Co mments Source Name Details Category Date Date Treatment Clinician Date Discharge Discharge Problem 2016-02-16 2016-02-16 Dony Diagnosis: Diagnosis: 02-12 00:25:42 00:25:42 l Anemia, Anemia, 05:00: [place] unspecifie unspecifie 00 d d 02/13/2016 02/16/2016 [facility] Discharge Discharge Problem 2016-02-16 2016-02-16 Dony Diagnosis: Diagnosis: 02-12 00:25:42 00:25:42 l Abnormal Abnormal 05:00: Jordy n uterine uterine 00 and and vaginal vaginal bleeding, bleeding, unspecifie unspecifie d d 02/13/2016 6 [facility] Discharge Discharge Problem 2014-09-06 2014-09-06 Dony Diagnosis: Diagnosis: 09-04 16:01:45 16:01:45 l Vaginal Vaginal 06:00: Antonio bleeding bleeding 00 09/04/2014 5 [facility] Discharge Discharge Problem 2014-09-06 2014-09-06 Dony Diagnosis: Diagnosis: 09-04 16:01:45 16:01:45 l Dysmenorrh Dysmenorrh 06:00: He rodger massey ea 09/04/2014 5 [facility] Discharge Discharge Problem 2014-08-26 2014-08-26 Memoria Diagnosis: Diagnosis: 08-24 17:22:44 17:22:44 l Nausea Nausea 06:00: Antonio 08/24/2014 5 MH [facility] Discharge Discharge Problem 2014-08-26 2014-08-26 Memoria Diagnosis: Diagnosis: 08-24 17:22:44 17:22:44 l Constipati Constipati 06:00: He rodger on on 08/24/2014 5 MH [facility] Allergies, Adverse Reactions, Alerts Allergy Allergy Status [...] 00 Medical Branch TRAMADOL DRUG Active Other-Cmnt Univ ers INGREDI 08-14 ity of 00:00: Medical Branch VANCOMYC DRUG Active Hives Univers IN INGREDI 08-14 ity of 00:00: [place] Medical [facility] Povidone Allergy Active [facility] Iodine to 04-25 Health substanc 00:00: e 00 Latex Allergy Active 0 [facility] to 04-25 Health substanc 00:00: e [...] to drug IODINE Allergy Active High Anaphylaxis [facility] IODIDE 00:00: [...] s to Products drug TRAMADOL Allergy Active [facility] 00:[facility]: Medical 00 [place] VANCOMYC Allergy Active [facility] ANALOGUE 00:00: Medical S 00 Center Vancomyc Propensi Active Hives Method i in ty to 2-13 st Analogue adverse 00:00: Hospita s reaction 00 l s to drug Tramadol Propensi Active [facility] adverse 00:00: Medical reaction 00 Center s Vancomyc Propensi Active [facility] Analogue adverse 00:00: Medical s reaction 00 [place] s POVIDONE Allergy Active 2013-[address] -IODINE [facility] 00:00: Medical 00 [place] LATEX Allergy Active 2013-[address] [facility] 00:00: Medical 00 [place] LEVOFLOX Allergy Active 2013-[address] ACIN [facility]-03 [facility] 00:00: Medical 00 [place] PROMETHA Allergy Active 2013-[address] ZINE 0-03 [facility] 00:00: Medical 00 [place] Levoflox Propensi Active Anaphylaxis 2013-08 Tongue M [...] [facility]-03 [facility] adverse 00:00: Medical reaction 00 [place] s Betadine Betadine Active Memori a Skin Skin 8-09 l 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 00:00: Jordy n 00 iodinate iodinate Active Memori a d d 809 l radiocon radiocon 00:00: Jordy roberto trast trast 00 dyes dyes Levaquin Levaquin Active Memori a 8-09 l 00:00: [place] 00 Phenerga Phenerga Active Memori a n [...] SOLR (finding ans ) STEROIDS Allergy Active [facility] Food Food Active Memoria Seafood Seafood l [place] Latex Latex Active Memoria l [place] morphine morphine Active Memori a l [place] vancomyc vancomyc Active Memori a in in l [place] Elavil Elavil Active Memoria l [place] Family History Family Member Diagnosis Comments Start Date Stop Date Source Family member No history of Methodis t cancer [facility] Maternal grandfather Stroke [facility] Maternal grandfather Stroke [facility] Natural sister Stroke [facility] Natural sister Stroke [facility] Maternal aunt [facility] Maternal aunt Cancer [facility] Maternal uncle Leukemia [facility] Natural mother Diabetes [facility] Social History Social Habit Start Date Stop Date Quantity Comments Source Gender identity 2020-05-06 Identifies as Method ist 15:03:15 female gender Hospital (finding) History SDOH Yazidi Alcohol Frequency Hospita l History SDOH Yazidi Alcohol Std Drinks Hospit al History SDOH Yazidi Alcohol Binge Hospital Sexual orientation [facility] Exposure to 2022-12-01 2022-12-11 Not sure University of SARS-CoV-2 (event) 00:00:00 20:24:00 [facility] History of Social 2021-06-29 2021-06-[address] function 00:00:00 00:00:00 Hospital Alcohol intake 2021-05-05 2021-05-05 Current non-drinker [facility] 00:00:00 00:00:00 of alcohol Medical Center (finding) Tobacco use and 2021-04-25 2021-04-25 Smokeless tobacco [facility] exposure 00:00:00 00:00:00 non-user Alcohol Comment 2018-08-02 2018-08-[address] 00:00:00 00:00:00 Hospital Sex Ass[birth year] At [birth year] LANA Cruz 00:00:00 00:00:00 Medical Center Smoking Status Start Date Stop Date Source Tobacco smoking consumption [facility] unknown Branch Social History [facility] Medications Ordered Filled Start Stop Current Ordering Indication Dosage Frequency Signature Comments Components Source Medication Medication Date Date Medication? Clinician (SIG) Name Name morpHINE (4 2022- No 4mg 4 mg, Slow Univers mg/mL) 12-12 IV Push, ity of injection 4 06:00: 06:03 [place]CE, 1 [place] mg 00 :00 dose, On Medical 12/12/22 Branch at 0100, STAT dicyclomine No 20mg 20 mg, Uni vers (BENTYL) 12-12 Intramuscu ity of injection 04:45: 04:41 lar, ONCE, [place] 20 mg 00 :00 1 dose, On Medical 12/11/22 Branch at 2345, Routine ondansetron Yes [id number] 4mg Take 1 Univers (ZOFRAN) 4 5-02 tablet by ity of mg tablet 00:00: mouth [place] 00 every 8 Medical (eight) Branch hours as needed for Nausea and Vomiting (N/V). dicyclomine Yes [id number] 20mg Take 1 Univers 20 mg 5-02 [...] Indication s: acute pain ondansetron 2022-0 Yes [id number] 4mg Take 1 Univers (ZOFRAN) 4 5-02 tablet by ity of mg tablet 00:00: mouth [place] 00 every 8 Medical (eight) Branch hours as needed for Nausea and Vomiting (N/V). dicyclomine Yes [id number] 20mg Take 1 Univers 20 mg 5-02 [...] of 1,000 mg in 21:15: 23:18 Piggyback, [place] NaCl 0.9% 00 :00 ONCE, 1 Medical (NS) 100 mL dose, On Bran ch MINI-BAG Sun11/27/22 at 1615, Administer over 30 Minutes, 100 mL
Reas on for Anti-Infec tive: Documented Infection< br>Documen gaye Infection Site: Urine<br&g t;Duration of Therapy: 7 days cefpodoxime 2022- No [id number] 100mg Take 1 Univers 100 mg 11-27 tablet by ity of tablet 00:00: 04:59 mouth in [place] 00 :00 the Medical morning Branch and 1 tablet in the evening. Do all this for 7 days. ketorolac 2022-2022- No 30mg 30 mg, Unive rs (TORADOL) [...] 15 Minutes, 100 mL levETIRAcet 2022-0 Yes [id number] 1000mg Take 1 Univers am (KEPPRA) 1-02 tablet by ity of 1,000 mg 00:00: mouth in [place] tablet the Medical morning and 1 tablet in the evening. Lacosamide 0 Yes [id number] 200mg Take 1 Univers (VIMPAT) 1-02 tablet by ity of 200 mg 00:00: mouth in [place] tablet 00 the Medical morning Branch and 1 tablet in the evening. ALPRAZolam 0 Yes [id number] .25mg Take 1 Univers (XANAX) 1-02 tablet by ity of 0.25 mg 00:00: mouth in [place] tablet 00 the Medical morning Branch and 1 tablet at noon and 1 tablet in the evening. levETIRAcet 2022-0 Yes [id number] 1000mg Take 1 Univers am (KEPPRA) 1-02 tablet by ity of 1,000 mg 00:00: mouth in [place] tablet 00 the Medical morning Branch and 1 tablet in the evening. Lacosamide 2022-0 Yes [id number] 200mg Take 1 Univers (VIMPAT) 1-02 tablet by ity of 200 mg 00:00: mouth in [place] tablet 00 the Medical morning Branch and 1 tablet in the evening. ALPRAZolam 3-0 Yes [id number] .25mg Take 1 Univers (XANAX) 1-02 tablet by ity of 0.25 mg 00:00: mouth in [place] tablet 00 the Medical morning Branch and 1 tablet at noon and 1 tablet in the evening. levETIRAcet 3-0 Yes [id number] 1000mg Take 1 Univers am (KEPPRA) 1-02 tablet by ity of 1,000 mg 00:00: mouth in [place] tablet 00 the Medical morning Branch and 1 tablet in the evening. Lacosamide 3-0 Yes [id number] 200mg Take 1 Univers (VIMPAT) 1-02 tablet by ity of 200 mg 00:00: mouth in [place] tablet 00 the Medical morning Branch and 1 tablet in the evening. ALPRAZolam 3-0 Yes [id number] .25mg Take 1 Univers (XANAX) 1-02 tablet by ity of 0.25 mg 00:00: mouth in [place] tablet 00 the Medical morning Branch and 1 tablet at noon and 1 tablet in the evening. levETIRAcet 3-0 Yes [id number] 1000mg Take 1 Univers am (KEPPRA) 1-02 tablet by ity of 1,000 mg 00:00: mouth in [place] tablet 00 the Medical morning Branch and 1 tablet in the evening. Lacosamide 3-0 Yes [id number] 200mg Take 1 Univers (VIMPAT) 1-02 tablet by ity of 200 mg 00:00: mouth in [place] tablet 00 the Medical morning Branch and 1 tablet in the evening. ALPRAZolam 3-0 Yes [id number] .25mg Take 1 Univers (XANAX) 1-02 tablet by ity of 0.25 mg 00:00: mouth in [place] tablet 00 the Medical morning Branch and 1 tablet at noon and 1 tablet in the evening. levETIRAcet 3-0 Yes [id number] 1000mg Take 1 Univers am (KEPPRA) 1-02 tablet by ity of 1,000 mg 00:00: mouth in [place] tablet 00 the Medical morning Branch and 1 tablet in the evening. Lacosamide 2023-0 Yes [id number] 200mg Take 1 Univers (VIMPAT) 1-02 tablet by ity of 200 mg 00:00: mouth in [place] tablet 00 the Medical morning Branch and 1 tablet in the evening. ALPRAZolam Yes [id number] .25mg Take 1 Univers (XANAX) 1-02 tablet by ity of 0.25 mg 00:00: mouth in [place] tablet 00 the Medical morning Branch and 1 tablet at noon and 1 tablet in the evening. acetaminoph 2020-08- No [id number] 1{tbl} Q6H Take 1 Methodi en-codeine 08-[address] (TYLENOL 00:00: 05:59 mouth Hospita WITH 00 :00 every 6 l CODEINE #3) (six) 300-30 mg hours as per tablet needed for moderate pain for up to 5 days .acute pain. acetaminoph 2020-08- No [id number] 1{tbl} Q6H Take 1 Methodi en-codeine 08-29 [...] He alth 12:13: s 10 bumetanide Yes [id number] 2mg QD Take 1 U T (Bumex) 2 9-13 tablet (2 Healt h MG tablet 00:00: mg total) 00 by mouth 1 (one) time each day. lisinopril Yes [id number] 2.5mg QD Take 1 UT 2.5 MG 9-13 tablet Health tablet 00:00: (2.5 mg 00 total) by mouth 1 (one) time each day. metoprolol Yes [id number] 50mg Q.5D Take 1 U T succinate [...] 50 MG 24 hr tablet lisinopril Yes [id number] 2.5mg QD Take 1 UT 2.5 MG -29 tablet Health tablet 00:00: (2.5 mg 00 total) by mouth 1 (one) time each day. metoprolol Yes [id number] 50mg Q.5D Take 1 U T succinate 6- tablet (50 Heal th XL 00:00: mg total) (Toprol-XL) 00 by mouth 2 50 MG 24 hr (two) tablet times a day. lisinopril 2020- No [id number] 2.5mg QD Take 1 UT 2.5 MG -04-25 tablet Health tablet 00:00: 00:00 (2.5 mg 00 :00 total) by mouth 1 (one) time each day. metoprolol 2020- No [id number] 50mg Q.5D Take 1 UT succinate -11 05- tablet (50 Hea lth XL 00:00: 00:00 [...] 10 -[address] MG capsule 16:32: daily. Hospi ta 59 l prazosin 0 Yes 5mg QD Take 5 mg Meth ketty (MINIPRESS) 4-[address] 5 MG 16:32: nightly. Hospita capsule 59 l busPIRone 0 Yes 15mg Q.[id number] Take 15 mg Methodi (BUSPAR) 10 -26 [id number] mouth [address] MG tablet 16:32: [...] capsule 59 l busPIRone 0 Yes 15mg Q.99861340 Take 15 mg Methodi (BUSPAR) 10 4-26 [id number] [address] mouth [address] MG tablet 11:32: [...] 59 Takes 3x a l week nitroglycer 2021-[address] 0.3 M ethodi in [...] capsule 59 l busPIRone 0 Yes 15mg Q.[id number] Take 15 mg Methodi (BUSPAR) 10 4-26 [id number] mouth [address] MG tablet 11:32: [...] capsule 59 l busPIRone 0 Yes 15mg Q.[id number] Take 15 mg Methodi (BUSPAR) 10 4-26 [id number] [address] mouth [address] MG tablet 11:32: [...] capsule 59 l busPIRone 0 Yes 15mg Q.[id number] Take 15 mg Methodi (BUSPAR) 10 4- [id number] by mouth 3 st MG tablet 11:32: [...] Hospita capsule 59 l busPIRone Yes 15mg Q.[id number] Take 15 mg Methodi (BUSPAR) 10 - [id number] by mouth 3 st MG tablet 11:32: [...] capsule 59 l busPIRone 0 Yes 15mg Q.[id number] Take 15 mg Methodi (BUSPAR) 10 - [id number] by mouth 3 st MG tablet 11:32: [...] Hospita capsule 59 l busPIRone Yes 15mg Q.[id number] Take 15 mg Methodi (BUSPAR) 10 -26 [id number] mouth [address] MG tablet 11:32: [...] capsule 59 l busPIRone 0 Yes 15mg Q.[id number] Take 15 mg Methodi (BUSPAR) 10 4-26 [id number] mouth [address] MG tablet 11:32: [...] capsule 59 l busPIRone 2020-0 Yes 15mg Q.[id number] Take 15 mg Methodi (BUSPAR) 10 4-26 [id number] mouth [address] MG tablet 11:32: [...] Hospita capsule 59 l busPIRone Yes 15mg Q.[id number] Take 15 mg Methodi (BUSPAR) 10 4-26 [id number] [address] mouth 3 [address] MG tablet 11:32: [...] Hospita 59 times a l week. FLUoxetine 2021-0 Yes 10mg QD Take 10 mg M ethodi (PROzac) 10 4-[address] MG capsule 11:32: daily. Hospi ta 59 l prazosin 0 Yes 5mg QD Take 5 mg Meth ketty (MINIPRESS) 4-[address] 5 MG 11:32: nightly. Hospita capsule 59 l busPIRone 0 Yes 15mg Q.88557112 Take 15 mg Methodi (BUSPAR) 10 4-26 [id number] mouth [address] MG tablet 11:32: [...] Hospita capsule 59 l busPIRone Yes 15mg Q.[id number] Take 15 mg Methodi (BUSPAR) 10 - [id number] by mouth 3 st MG tablet 11:32: 3D (three) Hospi ta 59 times a l day. ondansetron Yes 8mg Q8H Take 8 mg M ethodi ODT 4-[address] (ZOFRAN-ODT 11:32: every 8 Hos ednise ) 8 MG 59 (eight) l disintegrat [...] Hospita capsule 59 l busPIRone Yes 15mg Q.[id number] Take 15 mg Methodi (BUSPAR) 10 - [id number] by mouth 3 st MG tablet 11:32: [...] 2 mg U T (Bumex) 2 12-06 09-13 by mouth 1 Hea lth MG tablet 00:00: 00:00 (one) time 00 :00 each day. levETIRAcet 2020-0 2020- No 750mg Q.5D Take 1 Me thodi am (KEPPRA) 12-06 05-[address] 750 MG 00:00: 04:59 (750 mg Hospita tablet 00 :00 total) by l mouth 2 (two) times a day for 30 days. levETIRAcet 2020-0 2020- No 750mg Q.5D Take 1 Me thodi am (KEPPRA) 4-26 05-[address] 750 MG 00:00: 04:59 [...] Q.5D Take 1 Me thodi am (Keppra) 4-07 04-[address] 500 MG 00:00: 00:00 (500 [...] tablet hours for 10 [place] [id number] 1{tbl} Q6H Take 1-2 Methodi en-codeine 3-24 03-[address] (TYLENOL 00:00: 04:59 mouth Hospita WITH 00 :00 every 6 l CODEINE #3) (six) 300-30 mg hours as per tablet needed for moderate pain for up to 5 [place] [id number] 1{tbl} Q6H Take 1-2 Methodi en-codeine 3-24 03-[address] (TYLENOL 00:00: 04:59 mouth Hospita WITH 00 :00 every 6 l CODEINE #3) (six) 300-30 mg hours as per tablet needed for moderate pain for up to 5 [place]. [place] [id number] 1{tbl} Q6H Take 1-2 Methodi en-codeine 3-24 [...] Take 1 Meth ketty (BUMEX) 2 09-11 03-02 tablet (2 st MG tablet 00:00: 05:59 mg total) Ho spita 00 :00 by mouth l daily for 30 days. BUMETanide 2020- No 2mg QD Take 1 Meth ketty (BUMEX) 2 09-11 03-02 tablet (2 st MG tablet 00:00: 05:59 mg total) Ho spita 00 :00 by mouth l daily for 30 days. BUMETanide 2020- No 2mg QD Take 1 Meth ketty (BUMEX) 2 09-11 03-02 tablet (2 st MG tablet 00:00: 05:59 mg total) Ho spita 00 :00 by mouth l daily for 30 days. lacosamide 2020- No 150mg Q.5D Take 1 Met hodi (VIMPAT) 09-11 02-[address] 150 mg 00:00: 00:00 (150 mg Hospita tablet 00 :00 total) by l mouth 2 (two) times a day for 30 days. levETIRAcet 2020- No 750mg Q.5D Take 1 Me thodi am (KEPPRA) 09-11 02-[address] 750 MG 00:00: 00:00 (750 [...] per tablet day. diazePAM 2019-2019- No 10mg Q.[id number] Take 10 mg Methodi (VALIUM) 5 05-08 [id number] [address] mouth [address] MG tablet 17:49: [...] Hospita tablet 20 :00 daily. l butalbital- 2019-0 2020- No 1{tbl} Q4H Take 1 M ethodi acetaminoph 05-[address] en-caff 00:00: 04:59 mouth Hospita (FIORICET) 00 :00 every 4 l 50-325-40 (four) mg per hours as tablet needed for headaches or migraine for up to 30 days. lactulose 2019-0 2020- No 20g Q.[id number] Take 30 mL Methodi 20 gram/30 05-08 [id number] (20 g s t mL solution 00:00: 04:59 3D total) by Hospita 00 :00 mouth 3 l (three) times a day as needed (CONSTIPAT ION) for up to 30 days. meclizine 2020- No 25mg Q.[id number] Take 1 Methodi (ANTIVERT) 05-08 [id number] tablet (25 st 25 mg 00:00: 04:59 3D mg total) Hospit a tablet 00 :00 by mouth 3 l (three) times a day as needed for dizziness for up to 30 days. pregabalin 2019-2019- No 50mg Q.[id number] Take 2 Methodi (LYRICA) 25 05-[id number] MG capsule 00:00: 04:59 3D (50 mg Hosp arcenio 00 :00 total) by l mouth 3 (three) times a day for 30 days. lisinopriL 2019- No 2.5mg QD Take 1 Met hodi (PRINIVIL) 05-[address] 2.5 mg 00:00: 04:59 (2.5 mg Hospita tablet 00 :00 total) by l mouth daily for 30 days. metoprolol 0 2019- No 50mg Q.5D Take 1 Meth [...] 600mg Q.5D Take 600 M ethodi (NEURONTIN) 05-06- mg by st 600 mg 08:52: 00:00 mouth 2 Hospita tablet 08 :00 (two) l times a day. BUMETanide 2020-0 2020- No 2mg QD Take 2 mg M ethodi (BUMEX) 2 05-[address] MG tablet 08:51: 00:00 [...] 2 Center (two) times daily. albuterol 2020-0 202- No 2{puff} Inhale [address] [facility] HFA [...] Refill(s) Reglan 2016-0 No 10 mg, Memoria 7 Route: l 09:11: IVP, Drug [place] 00 form: INJ, ONCE, Dosing Weight 68.182, [...] Memoria 7 Route: l 09:11: IVP, Drug [place] 00 form: INJ, ONCE, Dosing Weight 68.182, [...] 7- Rate: l 0.9% IV 09:11: 1,000 [place] 1000 mL 00 ml/hr, Infuse over: 1 [...] 7- Rate: l 0.9% IV 09:11: 1,000 [place] 1000 mL 00 ml/hr, Infuse over: 1 hr, Route: IV, Dosing Weight 68.182 kg, Total Volume: 1,000, Start date: 02/13/16 4:11:00 CDT, Duration: 1 doses or times, Stop date: 02/13/16 5:10:00 CDT, Bolus Dose Reglan 2016-0 No 10 mg, Memoria 7- Route: l 09:11: IVP, Drug [place] 00 form: INJ, ONCE, Dosing Weight 68.182, [...] Memoria 7-03 Route: l 09:11: IVP, Drug [place] 00 form: INJ, ONCE, Dosing Weight 68.182, [...] Memoria 7-03 Route: l 09:11: IVP, Drug [place] 00 form: INJ, ONCE, Dosing Weight 68.182, [...] 7-03 Rate: l 0.9% IV 09:11: 1,000 [place] 1000 mL 00 ml/hr, Infuse over: 1 [...] Memoria 7-03 Route: l 09:11: IVP, Drug [place] 00 form: INJ, ONCE, Dosing Weight 68.182, kg, Priority: STAT, Start date: 02/13/16 4:11:00 CDT, Stop date: 02/13/16 4:11:00 CDT Sodium 2016-0 No 1,000 mL, Memori a Chloride 7-03 Rate: l 0.9% IV 09:11: 1,000 [place] 1000 mL 00 ml/hr, Infuse over: 1 [...] 7-03 Rate: l 0.9% IV 09:11: 1,000 [place] 1000 mL 00 ml/hr, Infuse over: 1 [...] Memoria 7-03 Route: l 09:11: IVP, Drug [place] 00 form: INJ, ONCE, Dosing Weight 68.182, [...] 02-12 Route: PO, l 08:17: Drug form: [place] 00 TAB, ONCE, Dosing Weight 68.182, kg, Priority: STAT, Start date: 02/13/16 3:17:00 CDT, Stop date: 02/13/16 3:17:00 CDT Acetaminoph 2016-0 No 650 mg, Mem oria en 02-12 Route: PO, l 08:17: Drug form: [place] 00 TAB, ONCE, Dosing Weight 68.182, kg, Priority: STAT, Start date: 02/13/16 3:17:00 CDT, Stop date: 02/13/16 3:17:00 CDT Acetaminoph 2016-0 No 650 mg, Mem oria en 02-12 Route: PO, l 08:17: Drug form: [place] 00 TAB, ONCE, Dosing Weight 68.182, kg, [...] 02-12 Route: PO, l 08:17: Drug form: [place] 00 TAB, ONCE, Dosing Weight 68.182, kg, [...] - Route: PO, l 08:17: Drug form: [place] 00 TAB, ONCE, Dosing Weight 68.182, kg, [...] - Route: PO, l 08:17: Drug form: [place] 00 TAB, ONCE, Dosing Weight 68.182, kg, Priority: STAT, Start date: 02/13/16 3:17:00 CDT, Stop date: 02/13/16 3:17:00 CDT Acetaminoph 2016-0 No 650 mg, Mem oria en 7- Route: PO, l 08:17: Drug form: [place] 00 TAB, ONCE, Dosing Weight 68.182, kg, Priority: STAT, Start date: 02/13/16 3:17:00 CDT, Stop date: 02/13/16 3:17:00 CDT Acetaminoph 2016-0 No 650 mg, Mem oria en - Route: PO, l 08:17: Drug form: [place] 00 TAB, ONCE, Dosing Weight 68.182, kg, [...] 02-12 Route: PO, l 08:17: Drug form: [place] 00 TAB, ONCE, Dosing Weight 68.182, kg, [...] 02-12 Route: PO, l 08:17: Drug form: [place] 00 TAB, ONCE, Dosing Weight 68.182, kg, Priority: STAT, Start date: 02/13/16 3:17:00 CDT, Stop date: 02/13/16 3:17:00 CDT Acetaminoph 2016-0 No 650 mg, Mem oria en 02-12 Route: PO, l 08:17: Drug form: [place] 00 TAB, ONCE, Dosing Weight 68.182, kg, [...] Memoria 7- Route: l 06:19: IVP, Drug [place] 00 form: INJ, ONCE, Dosing Weight 68.182, [...] Memoria 7- Route: l 06:19: IVP, Drug [place] 00 form: INJ, ONCE, Dosing Weight 68.182, [...] Memoria 7-03 Route: l 06:19: IVP, Drug [place] 00 form: INJ, ONCE, Dosing Weight 68.182, [...] Memoria 7- Route: l 06:19: IVP, Drug [place] 00 form: INJ, ONCE, Dosing Weight 68.182, [...] Memoria 7- Route: l 06:19: IVP, Drug [place] 00 form: INJ, ONCE, Dosing Weight 68.182, kg, Priority: STAT, Start date: 02/13/16 1:19:00 CDT, Stop date: 02/13/16 1:19:00 CDT Zofran 2016-0 No 4 mg, Memoria 7- Route: l 06:19: IVP, Drug [place] 00 form: INJ, ONCE, Dosing Weight 68.182, [...] Memoria 7- Route: l 06:19: IVP, Drug [place] 00 form: INJ, ONCE, Dosing Weight 68.182, kg, Priority: STAT, Start date: 02/13/16 1:19:00 CDT, Stop date: 02/13/16 1:19:00 CDT Zofran 2016-0 No 4 mg, Memoria 7- Route: l 06:19: IVP, Drug [place] 00 form: INJ, ONCE, Dosing Weight 68.182, kg, Priority: STAT, Start date: 02/13/16 1:19:00 CDT, Stop date: 02/13/16 1:19:00 CDT Saline No Notes: Memoria Flush 0.9% 7-03 (Same as: l 06:07: BD Antonio 00 Posiflush) Saline No Notes: [facility]oria Flush 0.9% 7-03 (Same as: l 06:07: BD [place] 00 Posiflush) Saline No Notes: [facility] Flush 0.9% 7-03 (Same as: l 06:07: BD Antonio 00 Posiflush) Saline No Notes: [facility] Flush 0.9% 7-03 (Same as: l 06:07: BD Antonio 00 Posiflush) Saline No Notes: [facility] Flush 0.9% 7-03 (Same as: l 06:07: BD [place] 00 Posiflush) Saline No Notes: [facility] Flush 0.9% 7-03 (Same as: l 06:07: BD Antonio 00 Posiflush) Saline No Notes: [facility] Flush 0.9% 7-03 (Same as: l 06:07: BD Antonio 00 Posiflush) Saline No Notes: [facility]oria Flush 0.9% 7-03 (Same as: l 06:07: BD [place] 00 Posiflush) Saline No Notes: [facility] Flush 0.9% 7-03 (Same as: l 06:07: BD Antonio 00 Posiflush) Saline No Notes: [facility] Flush 0.9% 7-03 (Same as: l 06:07: BD Antonio 00 Posiflush) Saline No Notes: [facility] Flush 0.9% 7-03 (Same as: l 06:07: BD [place] 00 Posiflush) Saline No Notes: [facility]oria Flush 0.9% 7-03 (Same as: l 06:07: BD [place] 00 Posiflush) Saline No Notes: [facility]oria Flush 0.9% 7-03 (Same as: l 06:07: BD [place] 00 Posiflush) Saline No Notes: [facility]oria Flush 0.9% 7-03 (Same as: l 06:07: BD [place] 00 Posiflush) Saline No Notes: Memoria Flush 0.9% 7-03 (Same as: l 06:07: BD [place] 00 Posiflush) Saline No Notes: Memoria Flush 0.9% 7-03 (Same as: l 06:07: BD [place] 00 Posiflush) Saline No Notes: Memoria Flush 0.9% 7-03 (Same as: l 06:07: BD [place] 00 Posiflush) Saline No Notes: Memoria Flush 0.9% 7-03 (Same as: l 06:07: BD [place] 00 Posiflush) Ibuprofen Yes Special [facility] 800 MG Oral -23 Instructio l Tablet 08:52: ns: Take [place] [Motrin] 00 with food Ibuprofen Yes [facility] 800 MG Oral 1-23 Instructio l Tablet 08:52: ns: Take Antonio [Motrin] 00 with food Ibuprofen 2014-0 Yes [facility] 800 MG Oral 1-23 Instructio l Tablet 08:52: ns: Take Antonio [Motrin] 00 with food Ibuprofen 2014-0 Yes [facility] 800 MG Oral 1-23 Instructio l Tablet 08:52: ns: Take [place] [Motrin] 00 with food Ibuprofen 2014- Yes [facility] 800 MG Oral 1-23 Instructio l Tablet 08:52: ns: Take [place] [Motrin] 00 with food Ibuprofen 2014- Yes [facility] 800 MG Oral 1-23 Instructio l Tablet 08:52: ns: Take [place] [Motrin] 00 with food Ibuprofen 2014- Yes [...] 1-23 Instructio l Tablet 08:52: ns: Take [place] [Motrin] 00 with food Ibuprofen 2014- Yes [...] 1-23 Instructio l Tablet 08:52: ns: Take [place] [Motrin] 00 with food Ibuprofen 2014- Yes [facility] 800 MG Oral 1-23 Instructio l Tablet 08:52: ns: Take [place] [Motrin] 00 with food Ibuprofen 0 Yes [facility] 800 MG Oral 1-23 Instructio l Tablet 08:52: ns: Take Antonio [Motrin] 00 with food Ibuprofen 0 Yes [facility] 800 MG Oral 1-23 Instructio l Tablet 08:52: ns: Take [place] [Motrin] 00 with food Ketorolac 0 No 4 days Memor ia 1-23 l 08:49: [place] 00 Ketorolac 2014-0 No 4 days Memor ia 1-23 l 08:49: [place] 00 Ketorolac 0 No 4 days Memor ia 1-23 l 08:49: [place] 00 Ketorolac 0 No 4 days Memor ia 1-23 l 08:49: Ketorolac 0 No 4 days Memor ia 1-23 l 08:49: Ketorolac 0 No 4 days Memor ia 1-23 l 08:49: Ketorolac 0 No 4 days Memor ia 1-23 l 08:49: Antonio 00 Ketorolac 2014-0 No 4 days Memor ia 1-23 l 08:49: [place] 00 Ketorolac 2014-0 No 4 days Memor ia 1-23 l 08:49: Ketorolac 2014-0 No 4 days Memor ia 1-23 l 08:49: Ketorolac 0 No 4 days Memor ia 1-23 l 08:49: Ketorolac 2014-0 No 4 days Memor ia 1-23 l 08:49: Ketorolac 2014-0 No 4 days Memor ia 1-23 l 08:49: Antonio 00 Ketorolac 0 No 4 days Memor ia 1-23 l 08:49: [place] 00 Ketorolac 2014-0 No 4 days Memor ia 1-23 l 08:49: Antonio 00 Ketorolac 2014-0 No 4 days Memor ia 1-23 l 08:49: Antonio 00 Ketorolac 0 No 4 days Memor ia 1-23 l 08:49: Antonio 00 Ketorolac 2014-0 No 4 days Memor ia 1-23 l 08:49: [place] 00 gabapentin 2015-0 Yes 600 mg = 1 M emoria 600 MG Oral 1-12 tab, PO, l Tablet 21:41: TID, # 90 Jordy n [Neurontin] 00 tab, 0 Refill(s) atorvastati Yes 20 mg = 1 M emoria n 20 MG 1-12 tab, PO, l Oral Tablet 21:41: Bedtime, # [place] [Lipitor] 00 30 tab, 0 Refill(s) metoprolol [...] PO, l Oral Tablet 21:41: Bedtime, # [place] [Lipitor] 00 30 tab, 0 Refill(s) metoprolol [...] PO, l Oral Tablet 21:41: Bedtime, # [place] [Lipitor] 00 30 tab, 0 Refill(s) metoprolol [...] PO, l Oral Tablet 21:41: Bedtime, # [place] [Lipitor] 00 30 tab, 0 Refill(s) metoprolol [...] PO, l Oral Tablet 21:41: Bedtime, # [place] [Lipitor] 00 30 tab, 0 Refill(s) metoprolol [...] PO, l Oral Tablet 21:41: Bedtime, # [place] [Lipitor] 00 30 tab, 0 Refill(s) metoprolol [...] PO, l Oral Tablet 21:41: Bedtime, # [place] [Lipitor] 00 30 tab, 0 Refill(s) metoprolol [...] PO, l Oral Tablet 21:41: Bedtime, # [place] [Lipitor] 00 30 tab, 0 Refill(s) metoprolol [...] PO, l Oral Tablet 21:41: Bedtime, # [place] [Lipitor] 00 30 tab, 0 Refill(s) metoprolol [...] Immunizations Ordered Filled Immunization Date Status Comments Sourc e Immunization Name Name Tdap 2020-11-03 Completed [facility]00 [facility] Tdap 2020-11-03 Completed [facility] 00:00:00 [facility] Tdap 2020-11-03 Completed [facility] 00:00:00 [facility] Tdap 2020-11-03 Completed [facility] 00:00:00 Hospital Tdap 2020-11-03 Completed [facility] 00:00:00 Hospital Tdap 2020-11-03 Completed [facility] 00:00:00 Hospital Tdap 2020-11-03 Completed [facility] 00:00:00 Hospital Tdap 2020-11-03 Completed [facility] 00:00:00 Hospital Tdap 2020-11-03 Completed [facility] 00:00:00 [facility] Tdap 2020-11-03 Completed [facility] 00:00:00 [facility] Tdap 2020-11-03 Completed [facility] 00:00:00 [facility] Tdap 2020-11-03 Completed [facility] 00:00:00 [facility] Tdap Unknown Completed [facility] Tdap Unknown Completed [facility] Vital Signs Vital Name Observation Time Observation Value Comments Source Systolic blood 2023-02-12 128 mm[Hg] [facility] pressure 21:26:00 [facility] Diastolic blood 2023-02-12 73 mm[Hg] [facility] pressure 21:26:00 [facility] Heart rate 2023-02-12 88 /min [facility] 21:26:00 [facility] Body temperature 2023-02-12 36.78 Cecily [facility] 21:26:00 [facility] Respiratory rate 2023-02-12 20 /min [facility] 21:26:00 [facility] Body height 2023-02-12 161.3 cm University [facility] 21:26:00 [facility] Body weight 2023-02-12 68.04 kg University [facility] 21:26:00 [facility] BMI 2023-02-12 26.15 kg/m2 University [facility] 21:26:00 [facility] Oxygen saturation 2023-02-12 100 /min [facility] in Arterial blood 21:26:00 [facility] Pulse oximetry [place] Systolic blood 2022-12-12 114 mm[Hg] [facility] pressure 07:00:00 [facility] Diastolic blood 2022-12-12 78 mm[Hg] [facility] f pressure 07:00:00 [facility] Heart rate 2022-12-12 99 /min [facility] 07:00:00 [facility] Respiratory rate 2022-12-12 16 /min [facility] 07:00:00 [facility] Oxygen saturation 2022-12-12 97 /min [facility] in Arterial blood 07:00:00 [facility] keerthi by Pulse oximetry Branch Body temperature 2022-12-12 36.61 Cecily [place] [facility] 01:23:00 [facility] Body height 2022-12-12 160 cm University of 01:23:00 [facility] Body weight 2022-12-12 68.04 kg University of 01:23:00 [facility] BMI 2022-12-12 26.57 kg/m2 [facility] of 01:23:00 [facility] Systolic blood 2022-11-28 115 mm[Hg] [facility] pressure 00:03:00 [facility] Diastolic blood 2022-11-28 71 mm[Hg] University o f pressure 00:03:00 [facility] Heart rate 2022-11-28 88 /min [facility] 00:03:00 [facility] Respiratory rate 2022-11-28 14 /min [facility] 00:03:00 [facility] Oxygen saturation 2022-11-28 99 /min [facility] in Arterial blood 00:03:00 [facility] by Pulse oximetry Branch Body temperature 2022-11-27 36.11 Cecily [facility] 20:13:00 [facility] Body height 2022-11-27 161.3 cm University of 20:13:00 [facility] Body weight 2022-11-27 68.04 kg University of 18:10:00 [facility] BMI 2022-11-27 26.15 kg/m2 [facility] 18:10:00 [facility] Systolic blood 2022-08-15 113 mm[Hg] [facility] pressure 04:00:00 [facility] Diastolic blood 2022-08-15 76 mm[Hg] University o f pressure 04:00:00 [facility] Heart rate 2022-08-15 91 /min [facility] 04:00:00 [facility] Respiratory rate 2022-08-15 24 /min [facility] 04:00:00 [facility] Oxygen saturation 2022-08-15 95 /min [facility] in Arterial blood 04:00:00 [facility] Pulse oximetry Branch Body temperature 2022-08-15 35.94 Cecily [facility] 02:49:00 [facility] Body height 2022-08-15 160 cm [facility] 02:49:00 [facility] Body weight 2022-08-15 68.04 kg [facility] 02:49:00 [facility] BMI 2022-08-15 26.57 kg/m2 [facility] 02:49:00 [facility] HEIGHT 2021-05-05 165.1 cm 20:18:00 WEIGHT 2021-05-05 68.04 kg 20:18:00 HEIGHT 2021-05-05 165.1 cm 20:18:00 WEIGHT 2021-05-05 68.04 kg 20:18:00 Systolic blood 2021-04-25 120 mm[Hg] [facility] pressure 16:25:00 Diastolic blood 2021-04-25 77 mm[Hg] [facility] pressure 16:25:00 Heart rate 2021-04-25 72 /min [facility] 16:25:00 Body height 2021-04-25 167.6 cm [facility] 16:25:00 Body weight 2021-04-25 78.926 kg [facility] 16:25:00 BMI 2021-04-25 28.08 kg/m2 [facility] 16:25:00 HEIGHT 2020-02-04 161 cm 00:00:00 WEIGHT 2020-02-04 68.04 kg 00:00:00 HEIGHT 2020-02-04 161 cm 00:00:00 WEIGHT 2020-02-04 68.04 kg 00:00:00 Systolic blood 2021-06-29 147 mm[Hg] [facility] pressure 16:16: Hospital Diastolic blood 2021-06-29 67 mm[Hg] [facility] pressure 16:16:09 [facility] Heart rate 2021-06-29 94 /min [facility] 16:16: [facility] Body temperature 2021-06-29 36.89 Cecily [facility] 16:16:09 Hospital Oxygen saturation 2021-06-29 94 /min [facility] in Arterial blood 16:16:09 [facility] by Pulse oximetry Systolic blood 2021-05-06 124 mm[Hg] [facility] pressure 01:23:00 [facility] Diastolic blood 2021-05-06 68 mm[Hg] [facility] pressure 01:23:00 [facility] Heart rate 2021-05-06 84 /min [facility] 01:23:00 [facility] Body temperature 2021-05-[address] [facility] 01:23:00 [facility] Respiratory rate 2021-05-06 18 /min [facility] 01:23:00 [facility] Oxygen saturation 2021-05-05 99 /min [facility] Arterial blood 23:45:00 [facility] nter by Pulse oximetry Body height 2021-05-[address] [facility] 20:18:00 [facility] Body weight 2021-05-[address] [facility] 20:18:00 [facility] BMI 2021-05-05 24.96 kg/m2 [facility] 20:18:00 [facility] Systolic blood 2020-12-16 120 mm[Hg] Location: [facility] Physicia ns pressure 11:22:00 Position: Sitting Diastolic blood 2020-12-16 77 mm[Hg] Location: [facility] Physici ans pressure 11:22:00 Position: Sitting Body height 2020-12-16 63 [in_us] [facility] 11:22:00 Weight 2020-12-16 165 [lb_av] [facility] 11:22:00 Body mass index 2020-12-16 29.23 kg/m2 [facility] (BMI) [Ratio] 11:22:00 Heart Rate 2020-12-16 90 /min [facility] 11:22:00 Heart rate 2020-12-06 78 /min [facility] 15:01:00 Hospital Respiratory rate 2020-12-06 16 /min [facility] 15:01:00 Hospital Oxygen saturation 2020-12-06 97 /min [facility] in Arterial blood 15:01:00 Hospital by Pulse oximetry Systolic blood 2020-12-06 124 mm[Hg] [facility] pressure 13:03:19 Hospital Diastolic blood 2020-12-06 65 mm[Hg] [facility] pressure 13:03:19 Hospital Body temperature 2020-12-06 36.39 Cecily [facility] 13:03:19 Hospital Body height 2020-12-03 165.1 cm [facility] 21:48:00 Hospital Body weight 2020-12-03 63.504 kg [facility] 21:48:00 Hospital BMI 2020-12-03 23.30 kg/m2 [facility] 21:48:00 Hospital Systolic blood 2020-12-02 112 mm[Hg] Location: [facility] Physicia ns pressure 12:05:00 Position: Sitting Diastolic blood 2020-12-02 68 mm[Hg] Location: [facility] Physici ans pressure 12:05:00 Position: Sitting Body height 2020-12-02 63 [in_us] [facility] 12:05:00 Weight 2020-12-02 168 [lb_av] [facility] 12:05:00 Body mass index 2020-12-02 29.76 kg/m2 [facility] (BMI) [Ratio] 12:05:00 Heart Rate 2020-12-02 72 /min [facility] 12:05:00 Systolic (mm Hg) 2016-02-13 [facility] [...] OF BENEFITS 2023-02-12 21:31:23 [facility] [place] [facility] GENERAL 2023-02-12 21:30:36 Angel, Cynise [facility] CONSENT/REFUSAL FOR 2023-02-12 21:17:38 Doctor Gisella [facility] DIAGNOSIS AND TREATMENT [place] [facility] [place] CT ABDOMEN PELVIS WO 2022-12-12 05:25:51 Mihir Luna [facility] CONTRAST Medical Branch LIPASE 2022-12-12 04:39:00 Mihir Luna [facility] COMP. METABOLIC PANEL 2022-12-12 04:39:00 Mihir Luna [facility] ([id number]) Medical [place] CBC WITH DIFF 2022-12-12 04:39:00 Mihir Luna [facility] ASSIGNMENT OF BENEFITS 2022-12-12 03:53:25 Doctor Unasskilo, [facility] [place] URINALYSIS 2022-12-12 01:58:00 Mihir Luna [facility] CONSENT/REFUSAL FOR 2022-12-12 01:14:19 Doctor Gisella [facility] DIAGNOSIS AND TREATMENT [facility] POCT TEST 2022-11-27 23:18:00 Simran Conteh [facility] BASIC METABOLIC PANEL (NA, 2022-11-27 19:34:00 Simran Conteh [facility] K, CL, CO2, GLUCOSE, BUN, Medica l Branch CREATININE, CA) CBC WITH DIFF 2022-11-27 19:34:00 Simran Conteh [facility] URINALYSIS 2022-11-27 19:34:00 Simran Conteh [facility] NOTICE OF PRIVACY 2022-11-27 18:07:21 Doctor Unajohn, [facility] PRACTICES [place] [facility] [place] CONSENT/REFUSAL FOR 2022-11-27 18:04:52 Doctor Gisella [facility] DIAGNOSIS AND TREATMENT [place] [facility] [place] EKG-12 LEAD 2022-08-15 04:15:29 Halima Vargas [facility] TEST, SERUM 2022-08-15 03:12:00 Halima Vargas [facility] TROPONIN I 2022-08-15 03:12:00 Halima Vargas [facility] COMP. METABOLIC PANEL 2022-08-15 03:12:00 Halima Vargas [facility] ([id number]) Medical Branch CBC WITH DIFF 2022-08-15 03:12:00 Halima Vargas [facility] XR KNEE 1 OR 2 VW RIGHT 2021-06-29 16:46:14 , [facility] CT SPINE CERVICAL WITHOUT 2021-05-05 22:50:00 Ryanne Hurtado [facility] IV CONTRAST [facility] CT BRAIN WITHOUT IV 2021-05-05 22:38:00 Ryanne Hurtado [facility] CONTRAST [facility] ED ECG INTERPRETATION 2021-05-05 20:57:00 Ryanne Hurtado [facility] LEVETIRACETAM LEVEL 2021-05-05 20:34:00 [facility] CBC W/PLT COUNT & AUTO 2021-05-05 20:34:00 [facility] COMPREHENSIVE METABOLIC 2021-05-05 20:34:00 [facility] PANEL [facility] TROPONIN I 2021-05-05 20:34:00 Genesis Ryanne [facility] CBC W/PLT COUNT & AUTO 2021-05-05 20:34:00 Hurtado [facility] REPORT OF PROCEDURE - 2021-05-05 00:00:00 Provider, [facility] ENDOSCOPY SCAN [facility] [L] BMP8+eGFR 2020-12-16 00:00:00 [facility] [QL] CBC (INCLUDES 2020-12-16 00:00:00 [facility] DIFF/PLT) [QL] LIPID PANEL 2020-12-16 00:00:00 [facility] [QL] TSH, 3RD GENERATION 2020-12-16 00:00:00 [facility] W/REFLEX TO FT4 [QL] HEMOGLOBIN A1c 2020-12-16 00:00:00 [facility] POC GLUCOSE 2020-12-06 05:18:00 Obdulio [facility]agland [facility]ital UNMONITORED VIDEO-EEG 12 2020-12-05 19:27:44 Maria Elena [facility] HRS 1MIN-26HRS [facility] EEG SETUP 2020-12-05 09:23:13 Maria Elena [facility] EEG (ROUTINE) 2020-12-04 16:25:57 Maria Elena [facility] POC GLUCOSE 2020-12-04 05:03:00 Obdulio Ragland Ho spital URINE DRUGS OF ABUSE 2020-12-04 04:55:00 [facility] SCREEN CT HEAD WO CONTRAST 2020-12-04 02:48:09 [facility] KEPPRA (LEVETIRACETAM) 2020-12-04 01:43:00 [facility] LEVEL ALCOHOL LEVEL, BLOOD 2020-12-04 01:43:00 [facility] TROPONIN 2020-12-04 01:43:00 [facility] 1 VW PORTABLE 2020-12-03 23:52:00 [facility]AL[facility]ATIVE 2020-12-03 22:41:00 [facility] RT-PCR [place] CRITICAL CARE, E/M 2020-12-03 21:55:13 [facility] 30-74 MINUTES [facility] ECG ED PRELIMINARY 2020-12-03 21:55:13 [facility] INTERPRETATION [facility] COMPLETE BLD COUNT 2020-12-03 21:52:00 [facility] W/AUTO DIFF [facility] PROTHROMBIN TIME WITH INR 2020-12-03 21:52:00 [facility] PARTIAL THROMBOPLASTIN 2020-12-03 21:52:00 [facility] TIME (PTT) [place] COMPREHENSIVE METABOLIC 2020-12-03 21:52:00 [facility] PANEL [place] TROPONIN 2020-12-03 21:52:00 [facility] B NATRIURETIC PEPTIDE 2020-12-03 21:52:00 [facility] [place] HCG QUALITATIVE, SERUM 2020-12-03 21:52:00 [facility] SCREEN [place] ESTIMATED GFR 2020-12-03 21:52:00 [facility] CREATINE KINASE, TOTAL 2020-12-03 21:52:00 [facility] (CPK) [place] ECG 12-LEAD 2020-12-03 21:48:15 [facility] [L] BMP8+eGFR 2020-12-02 00:00:00 [facility] [QL] CBC (INCLUDES 2020-12-02 00:00:00 [facility] DIFF/PLT) [QL] LIPID PANEL 2020-12-02 00:00:00 [facility] [QL] HEMOGLOBIN A1c 2020-12-02 00:00:00 [facility] [QL] B TYPE NATRIURETIC 2020-12-02 00:00:00 [facility] PEPTIDE (BNP) URINALYSIS SCREEN AND 2020-11-18 00:45:00 [facility] MICROSCOPY, WITH REFLEX TO [place] CULTURE HC COMPLETE BLD COUNT 2020-11-17 22:57:00 [facility] W/AUTO DIFF [place] COMPREHENSIVE METABOLIC 2020-11-17 22:57:00 [facility] PANEL [place] ESTIMATED GFR 2020-11-17 22:57:00 [facility] [place] URINE CULTURE 2020-11-17 22:55:00 [facility] [place] XR HAND 3+ VW RIGHT 2020-11-03 04:24:[address] [facility] EEG AWAKE/DROWSY LESS THAN 2020-09-17 16:49:14 [facility] VITAMIN B12 LEVEL 2020-09-17 10:40:00 [facility] VITAMIN B1 LEVEL, WHOLE 2020-09-17 10:40:00 Whit Alston [facility] BLOOD THYROID STIMULATING 2020-09-17 10:40:00 [facility] 2020-09-17 10:40:00 Whit Alston spital HEMOGLOBIN A1C 2020-09-17 10:40:00 Whit Alston spital RAPID HIV 1 & 2 2020-09-17 10:40:00 Whit Alston spital SYPHILIS TREPONEMA SCREEN 2020-09-17 10:40:[address] [facility] WITH RPR CONFIRMATION (REVERSE ALGORITHM) HC COMPLETE BLD COUNT 2020-09-17 10:40:00 [facility] W/AUTO DIFF BASIC METABOLIC PANEL 2020-09-17 10:40:00 [facility] MAGNESIUM LEVEL 2020-09-17 10:40[facility]00 [facility]17 [facility] 2020-09-17 10:[facility] 2020-09-17 10:27[facility]21 [facility]AL[facility] 2020-09-16 21:32:00 [facility] RT-PCR ECG ED PRELIMINARY 2020-09-16 20:03:41 [facility] INTERPRETATION ECG 12-LEAD 2020-09-16 19:53:37 [facility] [facility] COMPLETE BLD COUNT 2020-09-16 19:49:00 [facility] W/AUTO DIFF CREATINE KINASE, TOTAL 2020-09-16 19:49:00 [facility] ([facility]) COMPREHENSIVE METABOLIC 2020-09-16 19:49:00 [facility] PANEL ESTIMATED GFR 2020-09-16 19:49:00 [facility] EEG AWAKE/ASLEEP LESS THAN 2020-09-11 16:51:29 Maribel Dickey [facility] 41 MIN CLOSTRIDIUM DIFFICILE 2020-09-11 15:09[facility] 2020-09-11 11:59:00 [facility]keyMaribel spital LACTIC ACID LEVEL, SEPSIS 2020-09-11 11:59:00 [facility] - NOW AND REPEAT 2X EVERY 3 HOURS PROLACTIN LEVEL 2020-09-11 11:59:00 [facility]keyMaribel [facility] TROPONIN 2020-09-11 08:50:00 [facility] LACTIC ACID LEVEL 2020-09-11 08:50:00 [facility] COVID-19 QUALITATIVE 2020-09-11 06:43:00 [facility] RT-PCR CT ABDOMEN PELVIS WO 2020-09-11 05:29:19 [facility] CONTRAST CT HEAD WO CONTRAST 2020-09-11 05:29:09 [facility] URINE CULTURE 2020-09-11 05:27:00 [facility] XR CHEST 1 VW PORTABLE 2020-09-11 05:05:26 [facility] ECG 12-LEAD 2020-09-11 05:04:54 Maribel Dickey spital LACTIC ACID LEVEL, SEPSIS 2020-09-11 05:02:00 [facility] - NOW AND REPEAT 2X EVERY 3 HOURS URINALYSIS SCREEN AND 2020-09-11 04:56:[address] [facility] MICROSCOPY, WITH REFLEX TO CULTURE URINE DRUGS OF ABUSE 2020-09-11 04:56:00 [facility] SCREEN TROPONIN 2020-09-11 04:44:00 Maribel Dickey spital HCG QUALITATIVE, SERUM 2020-09-11 04:44:00 [facility] SCREEN CREATINE KINASE, TOTAL 2020-09-11 04:43:00 [facility] ([facility]) ECG ED PRELIMINARY 2020-09-11 04:35:32 [facility] INTERPRETATION HC COMPLETE BLD COUNT 2020-09-11 04:32:[address] [facility] W/AUTO DIFF COMPREHENSIVE METABOLIC 2020-09-11 04:32:00 [facility] PANEL ESTIMATED GFR 2020-09-11 04:32:00 [facility] CHLAMYDIA GONORRHOEAE AND 2020-07-16 07:47:00 [facility] TRICHOMONAS PANEL WET PREP 2020-07-16 06:20:[address] ABDOMEN PELVIS WO 2020-07-16 03:58:20 [facility] CONTRAST COVID-19 QUALITATIVE 2020-07-16 03:16:00 [facility] RT-PCR HC COMPLETE BLD COUNT 2020-07-16 03:16:00 [facility] W/AUTO DIFF COMPREHENSIVE METABOLIC 2020-07-16 03:16:00 [facility] PANEL LIPASE LEVEL 2020-07-16 03:16:00 [facility] ESTIMATED GFR 2020-07-16 03:16:00 [facility] URINE CULTURE 2020-07-16 00:38:00 Inez Garc[facility] HCG QUALITATIVE, URINE 2020-07-15 23:58:00 Inez García [facility] SCREEN [facility] URINALYSIS SCREEN AND 2020-07-15 23:58:00 [facility] WITH REFLEX TO [facility] CULTURE US DUPLEX VENOUS UPPER 2020-05-08 06:10:06 Clive Steward [facility] EXTREMITY RIGHT Tair EEG EXTENDED 41 - 60 MINS 2020-05-07 21:36:38 [facility] HCG QUALITATIVE, SERUM 2020-05-07 17:51:00 [facility] SCREEN MRI BRAIN W WO CONTRAST 2020-05-07 03:11:37 Katelynn Marino [facility] TTE COMPLETE, WO CONTRAST, 2020-05-06 22:42:15 Clive Steward [facility] W AGITATED SALINE ([id number]) Tari VITAMIN B12 LEVEL 2020-05-06 16:52[facility]00 [facility] FOLATE LEVEL 2020-05-06 16:52:00 [facility] TROPONIN 2020-05-06 14:33:00 [facility] HC COMPLETE BLD COUNT 2020-05-06 12:04:00 [facility] W/AUTO DIFF [facility] METABOLIC 2020-05-06 12:04:00 [facility] PANEL TROPONIN 2020-05-06 12:04:00 [facility] ESTIMATED GFR 2020-05-06 12:04:00 [facility] COVID-19 QUALITATIVE 2020-05-06 07:30:00 [facility] RT-PCR URINE CULTURE 2020-05-06 06:34:00 [facility] CT HEAD WO CONTRAST 2020-05-06 06:10:12 [facility] HC COMPLETE BLD COUNT 2020-05-06 05:53:00 [facility] W/AUTO DIFF PARTIAL THROMBOPLASTIN 2020-05-06 05:53:00 [facility] TIME (PTT) PROTHROMBIN TIME WITH INR 2020-05-06 05:53:00 [facility] METABOLIC 2020-05-06 05:53:00 [facility] PANEL URINALYSIS SCREEN AND 2020-05-06 05:53:00 [facility] MICROSCOPY, WITH REFLEX TO CULTURE TROPONIN 2020-05-06 05:53:00 [facility] B NATRIURETIC PEPTIDE 2020-05-06 05:53:00 [facility] THYROID STIMULATING 2020-05-06 05:53:00 [facility] HORMONE AMMONIA LEVEL 2020-05-06 05:53:00 [facility] URINE DRUGS OF ABUSE 2020-05-06 05:53:00 [facility] SCREEN ALCOHOL LEVEL, BLOOD 2020-05-06 05:53:00 [facility] ESTIMATED GFR 2020-05-06 05:53:00 [facility] XR CHEST 1 VW PORTABLE 2020-05-06 05:49:36 [facility] POC GLUCOSE 2020-05-06 05:41:00 [facility] ECG 12-LEAD 2020-05-06 05:37:10 [facility] ECG ED PRELIMINARY 2020-05-06 05:14:03 [facility] INTERPRETATION [facility] Lap[facility]oscopic Append[facility] Blood [facility] Plan of Care Planned Activity Planned [...] [facility] 00:[facility]00 [code = [id number]] Medical Ce nter Future Scheduled 2025-09-17 Lipid panel (procedure) [facility] 00:00:00 [code = 98337129] Medical Ce nter Future Scheduled 2025-09-17 Lipid panel (procedure) [facility] 00:00:00 [code = 15227267] Medical Ce nter Future Scheduled 2025-09-17 Lipid panel (procedure) [facility] 00:00:00 [code = 35206948] Medical Ce nter Future Scheduled 2025-09-17 Lipid panel (procedure) [facility] 00:00:00 [code = 20457547] Medical Ce nter Future Scheduled 2025-09-17 Lipid panel (procedure) [facility] 00:00:00 [code = 68077879] Medical Ce nter Future Scheduled 2025-09-17 Lipid panel (procedure) [facility] 00:00:00 [code = 05507275] Medical Ce nter Future Scheduled 2025-09-17 Lipid panel (procedure) [facility] 00:00:00 [code = 79253122] Medical Ce nter Future Scheduled 2025-09-17 Lipid panel (procedure) [facility] 00:00:00 [code = 57417498] Medical Ce nter Future Scheduled 2025-09-17 Lipid panel (procedure) [facility] 00:00:00 [code = 29818467] Medical Ce nter Future Scheduled 2025-09-17 Lipid panel (procedure) [facility] 00:00:00 [code = 36147998] Medical Ce nter Future Scheduled 2025-09-17 Lipid panel (procedure) [facility] 00:00:00 [code = 96133471] Medical Ce nter Future Scheduled 2025-09-17 Lipid panel (procedure) [facility] 00:00:00 [code = 19272200] Medical Ce nter Future Scheduled 2023-08-03 Lipid panel (procedure) [facility] 00:00:00 [code = 79362122] Medical Ce nter Future Scheduled 2023-06-07 Screening for malignant [facility] 18:14:01 neoplasm of colon Hospital (procedure) [code = 729206897] Future Scheduled 2023-06-07 Screening for malignant [facility] 18:14:01 [facility]oplasm of colon Hospital (procedure) [code = 367582056] Future Scheduled 2023-06-07 Screening for malignant [facility] 18:14:01 neoplasm of colon Hospital (procedure) [code = 696914009] Future Scheduled 2023-06-07 COVID-19 [facility]ACCINE (#1) [facility]01 [code = COVID-19 VACCINE Hos pital (#1)] Future Scheduled 2023-06-07 Hepatitis C screening [facility] 18:14:01 (procedure) [code = Hospital 704935965] Future Scheduled 2023-06-07 Screening for malignant [facility] 18:14:01 neoplasm of cervix Hospital (procedure) [code = 004737603] Future Scheduled 2023-06-07 BREAST CANCER SCREENING [facility] 18:14:01 [code = BREAST CANCER Hospit al SCREENING] Future Scheduled 2023-06-07 Screening for malignant [facility] 18:14:01 neoplasm of colon Hospital (procedure) [code = 657964762] Future Scheduled 2023-06-07 Screening for malignant [facility] 18:14:01 neoplasm of colon Hospital (procedure) [code = 733010404] Future Scheduled 2023-06-07 INFLUENZA VACCINE (#1) [facility] 18:14:01 [code = INFLUENZA VACCINE Ho spital (#1)] Future Scheduled 2023-06-07 Screening for malignant [facility] 18:14:01 neoplasm of colon Hospital (procedure) [code = 500622775] Future Scheduled 2023-06-07 Screening for malignant [facility] 18:14:01 neoplasm of colon Hospital (procedure) [code = 792813116] Future Scheduled 2023-06-07 Screening for malignant [facility] 18:14:01 neoplasm of colon Hospital (procedure) [code = 526120873] Future Scheduled 2023-06-07 COVID-19 VACCINE (#1) [facility] 18:14:01 [code = COVID-19 VACCINE Hos pital (#1)] Future Scheduled 2023-06-07 Hepatitis C screening [facility] 18:14:01 (procedure) [code = Hospital 257465185] Future Scheduled 2023-06-07 Screening for malignant [facility] 18:14:01 neoplasm of cervix Hospital (procedure) [code = 089736378] Future Scheduled 2023-06-07 BREAST CANCER SCREENING [facility] 18:14:01 [code = BREAST CANCER Hospit al SCREENING] Future Scheduled 2023-06-07 Screening for malignant [facility] 18:14:01 neoplasm of colon Hospital (procedure) [code = 486897859] Future Scheduled 2023-06-07 Screening for malignant [facility] 18:14:01 neoplasm of colon Hospital (procedure) [code = 855737314] Future Scheduled 2023-06-07 INFLUENZA VACCINE (#1) [facility] 18:14:01 [code = INFLUENZA VACCINE Ho spital (#1)] Future Scheduled 2023-04-16 Screening for malignant [facility] 08:31:55 neoplasm of colon Hospital (procedure) [code = 850289634] Future Scheduled 2023-04-16 Screening for malignant [facility] 08:31:55 neoplasm of colon Hospital (procedure) [code = 619124314] Future Scheduled 2023-04-16 Screening for malignant [facility] 08:31:55 neoplasm of colon Hospital (procedure) [code = 826933568] Future Scheduled 2023-04-16 COVID-19 VACCINE (#1) [facility] 08:31:55 [code = COVID-19 VACCINE Hos pital (#1)] Future Scheduled 2023-04-16 Hepatitis C screening [facility] 08:31:55 (procedure) [code = Hospital 098335583] Future Scheduled 2023-04-16 Screening for malignant [facility] 08:31:55 neoplasm of cervix Hospital (procedure) [code = 583873113] Future Scheduled 2023-04-16 BREAST CANCER SCREENING [facility] 08:31:55 [code = BREAST CANCER Hospit al SCREENING] Future Scheduled 2023-04-16 Screening for malignant [facility] 08:31:55 neoplasm of colon Hospital (procedure) [code = 678721930] Future Scheduled 2023-04-16 Screening for malignant [facility] 08:31:55 neoplasm of colon Hospital (procedure) [code = 676034355] Future Scheduled 2023-04-16 INFLUENZA VACCINE (#1) M [...] (#1)] Future Scheduled 2023-01-26 Screening for malignant [facility] 03:46:14 neoplasm of colon Hospital (procedure) [code = 903328173] Future Scheduled 2023-01-26 Screening for malignant [facility] 03:46:14 neoplasm of colon Hospital (procedure) [code = 112828936] Future Scheduled 2023-01-26 Screening for malignant [facility] 03:46:14 neoplasm of colon Hospital (procedure) [code = 663255978] Future Scheduled 2023-01-26 COVID-19 VACCINE (#1) [facility] 03:46:14 [code = COVID-19 VACCINE Hos pital (#1)] Future Scheduled 2023-01-26 Hepatitis C screening [facility] 03:46:14 (procedure) [code = Hospital 122498498] Future Scheduled 2023-01-26 Screening for malignant [facility] 03:46:14 neoplasm of cervix Hospital (procedure) [code = 557768907] Future Scheduled 2023-01-26 BREAST CANCER SCREENING [facility] 03:46:14 [code = BREAST CANCER Hospit al SCREENING] Future Scheduled 2023-01-26 Screening for malignant [facility] 03:46:14 neoplasm of colon Hospital (procedure) [code = 844999647] Future Scheduled 2023-01-26 Screening for malignant [facility] 03:46:14 neoplasm of colon Hospital (procedure) [code = 076026179] Future Scheduled 2023-01-26 INFLUENZA VACCINE [code = [facility] 03:46:14 INFLUENZA VACCINE] Hospital Future Scheduled 2022-11-17 COVID-19 VACCINE (#1) [facility] 15:00:57 [code = COVID-19 VACCINE Hos pital (#1)] Future Scheduled 2022-11-17 Hepatitis C screening [facility] 15:00:57 (procedure) [code = Hospital 839617544] Future Scheduled 2022-11-17 Screening for malignant [facility] 15:00:57 neoplasm of cervix Hospital (procedure) [code = 665516497] Future Scheduled 2022-11-17 BREAST CANCER SCREENING [facility] 15:00:57 [code = BREAST CANCER Hospit al SCREENING] Future Scheduled 2022-11-17 COLONOSCOPY SCREENING [facility] 15:00:57 [code = COLONOSCOPY Hospital SCREENING] Future Scheduled 2022-11-17 INFLUENZA VACCINE [code = [facility] 15:00:57 INFLUENZA VACCINE] Hospital Future Scheduled 2022-11-17 COVID-19 VACCINE (#1) [facility] 15:00:57 [code = COVID-19 VACCINE Hos pital (#1)] Future Scheduled 2022-11-17 Hepatitis C screening [facility] 15:00:57 (procedure) [code = Hospital 238037496] Future Scheduled 2022-11-17 Screening for malignant [facility] 15:00:57 neoplasm of cervix Hospital (procedure) [code = 069793188] Future Scheduled 2022-11-17 BREAST CANCER SCREENING [facility] 15:00:57 [code = BREAST CANCER Hospit al SCREENING] Future Scheduled 2022-11-17 COLONOSCOPY SCREENING [facility] 15:00:57 [code = COLONOSCOPY Hospital SCREENING] Future Scheduled 2022-11-17 INFLUENZA VACCINE [code = [facility] 15:00:57 INFLUENZA VACCINE] Hospital Future Scheduled [...] [facility] 06:02:12 (procedure) [code = Hospital 994037060] Future Scheduled 2022-07-28 Screening for malignant [facility] 06:02:12 neoplasm of cervix Hospital (procedure) [code = 094043122] Future Scheduled 2022-07-28 BREAST CANCER SCREENING [facility] 06:02:12 [code = BREAST CANCER Hospit al SCREENING] Future Scheduled 2022-07-28 COLONOSCOPY SCREENING [facility] 06:02:12 [code = COLONOSCOPY Hospital SCREENING] Future Scheduled 2022-07-28 INFLUENZA VACCINE [code = [facility] 06:02:12 INFLUENZA VACCINE] Hospital Future Scheduled 2022-07-28 COVID-19 VACCINE (#1) [facility] 06:02:12 [code = COVID-19 VACCINE Hos pital (#1)] Future Scheduled 2022-07-28 Hepatitis C screening [facility] 06:02:12 (procedure) [code = Hospital 636860006] Future Scheduled 2022-07-28 Screening for malignant [facility] 06:02:12 neoplasm of cervix Hospital (procedure) [code = 557803387] Future Scheduled 2022-07-28 BREAST CANCER SCREENING [facility] 06:02:12 [code = BREAST CANCER Hospit al SCREENING] Future Scheduled 2022-07-28 COLONOSCOPY SCREENING [facility] 06:02:12 [code = COLONOSCOPY Hospital SCREENING] Future Scheduled 2022-07-28 INFLUENZA VACCINE [code = [facility] 06:02:12 INFLUENZA VACCINE] Hospital Future Scheduled 2022-07-28 COVID-19 VACCINE (#1) [facility] 06:02:12 [code = COVID-19 VACCINE Hos pital (#1)] Future Scheduled 2022-07-28 Hepatitis C screening [facility] 06:02:12 (procedure) [code = Hospital 383795588] Future Scheduled 2022-07-28 Screening for malignant [facility] 06:02:12 neoplasm of cervix Hospital (procedure) [code = 271979016] Future Scheduled 2022-07-28 BREAST CANCER SCREENING [facility] 06:02:12 [code = BREAST CANCER Hospit al SCREENING] Future Scheduled 2022-07-28 COLONOSCOPY SCREENING [facility] 06:02:12 [code = COLONOSCOPY Hospital SCREENING] Future Scheduled 2022-07-28 INFLUENZA VACCINE [code = [facility] 06:02:12 INFLUENZA VACCINE] Hospital Future Scheduled 2022-07-28 COVID-19 VACCINE (#1) [facility] 06:02:12 [code = COVID-19 VACCINE Hos pital (#1)] Future Scheduled 2022-07-28 Hepatitis C screening [facility] 06:02:12 (procedure) [code = Hospital 156414123] Future Scheduled 2022-07-28 Screening for malignant [facility] 06:02:12 neoplasm of cervix Hospital (procedure) [code = 739160513] Future Scheduled 2022-07-28 BREAST CANCER SCREENING [facility] 06:02:12 [code = BREAST CANCER Hospit al SCREENING] Future Scheduled 2022-07-28 COLONOSCOPY SCREENING [facility] 06:02:12 [code = COLONOSCOPY Hospital SCREENING] Future Scheduled 2022-07-28 INFLUENZA VACCINE [code = [facility] 06:02:12 INFLUENZA VACCINE] Hospital Future Scheduled 2022-07-28 COVID-19 VACCINE (#1) [facility] 06:02:12 [code = COVID-19 VACCINE Hos pital (#1)] Future Scheduled 2022-07-28 Hepatitis C screening [facility] 06:02:12 (procedure) [code = Hospital 463360535] Future Scheduled 2022-07-28 Screening for malignant [facility] 06:02:12 neoplasm of cervix [facility] (procedure) [code = 067604066] Future Scheduled 2022-07-28 BREAST CANCER SCREENING [facility] 06:02:12 [code = BREAST CANCER Hospit al SCREENING] Future Scheduled 2022-07-28 COLONOSCOPY SCREENING [facility] 06:02:12 [code = COLONOSCOPY Hospital SCREENING] Future Scheduled 2022-07-28 INFLUENZA VACCINE [code = [facility] 06:02:12 INFLUENZA VACCINE] Hospital Future Scheduled [...] [facility] 11:36:01 (procedure) [code = Hospital 940369744] Future Scheduled 2021-06-29 Screening for malignant [facility] 11:36:01 neoplasm of cervix Hospital (procedure) [code = 868583828] Future Scheduled 2021-06-29 INFLUENZA VACCINE [code = [facility] 11:36:01 INFLUENZA VACCINE] Hospital Future Scheduled 2021-06-29 COVID-19 VACCINE (1) [facility] 11:36:01 [code = COVID-19 VACCINE Hos pital (1)] Future Scheduled 2021-06-29 Hepatitis C screening [facility] 11:36:01 (procedure) [code = Hospital 680493506] Future Scheduled 2021-06-29 Screening for malignant [facility] 11:36:01 neoplasm of cervix Hospital (procedure) [code = 741674704] Future Scheduled 2021-06-29 INFLUENZA VACCINE [code = [facility] 11:36:01 INFLUENZA VACCINE] Hospital Future Scheduled [...] cervix Medical C enter (procedure) [code = 856913512] Future Scheduled 1994 Screening for malignant [facility] 00:00:00 neoplasm of cervix Medical C enter (procedure) [code = 945303169] Future Scheduled 1994 Screening for malignant [facility] 00:00:00 neoplasm of cervix Medical C enter (procedure) [code = 985065089] Future Scheduled 1994 Screening for malignant [facility] 00:00:00 neoplasm of cervix Medical C enter (procedure) [code = 174773874] Future Scheduled 1994 Screening for malignant [facility] 00:00:00 neoplasm of cervix Medical C enter (procedure) [code = 639109918] Future Scheduled 1994 Screening for malignant [facility] 00:00:00 neoplasm of cervix Medical C enter (procedure) [code = 383224509] Future Scheduled 1994 Screening for malignant [facility] 00:00:00 neoplasm of cervix Medical C enter (procedure) [code = 602580175] Future Scheduled 1994 Screening for malignant [facility] 00:00:00 neoplasm of cervix Medical C enter (procedure) [code = 064148210] Future Scheduled 1994 Screening for malignant [facility] 00:00:00 neoplasm of cervix Medical C enter (procedure) [code = 038781040] Future Scheduled [address] Screening for malignant [facility] 00:00:00 neoplasm of cervix Medical C enter (procedure) [code = 093307137] Future Scheduled 1994 Screening for malignant [facility] 00:00:00 neoplasm of cervix Medical C enter (procedure) [code = 911311016] Future Scheduled 1994 Screening for malignant [facility] 00:00:00 neoplasm of cervix Medical C enter (procedure) [code = 769098404] Future Scheduled 1994 Screening for malignant [facility] 00:00:00 neoplasm of cervix Medical C enter (procedure) [code = 487256825] Future Scheduled 1994 Screening for malignant [facility] 00:00:00 neoplasm of cervix Medical C enter (procedure) [code = 593688656] Future Scheduled 1991 HEPATITIS C SCREENING [facility] [...] screening [facility] (procedure) [code = 498498001] Future Scheduled [address] [facility] screening [facility] (procedure) [code = 912004807] Future Scheduled [address] [facility] 00:[facility]:00 virus screening [facility] (procedure) [code = 697460679] Future Scheduled 1985 COVID-19 VACCINE (1) [facility] 00[facility] [code = CT Colonography [facility] (combo)] Future Scheduled 1973 Screening for malignant [facility] 00:00:00 neoplasm of colon Medical Ce nter (procedure) [code = 225134765] Future Scheduled 1973 Screening for malignant [facility] 00:00:00 neoplasm of colon Medical Ce nter (procedure) [code = 615009112] Future Scheduled 1973 Screening for malignant [facility] 00:00:00 neoplasm of colon Medical Ce nter (procedure) [code = 608349513] Future Scheduled 1973 Screening for malignant [facility] 00:00:00 neoplasm of colon Medical Ce nter (procedure) [code = 252273213] Future Scheduled 1973 Sigmoidoscopy [facility]] Medical Cent[facility] r Future Scheduled 1973 CT Colonography (combo) [facility] 00:00:00 [code = CT Colonography [facility] (combo)] Future Scheduled 1973 Screening for malignant [facility] 00:00:00 neoplasm of colon Medical Ce nter (procedure) [code = 668455111] Future Scheduled 1973 Screening for malignant [facility] 00:00:00 neoplasm of colon Medical Ce nter (procedure) [code = 981170637] Future Scheduled 1973 Screening for malignant [facility] 00:00:00 neoplasm of colon Medical Ce nter (procedure) [code = 988030185] Future Scheduled 1973 Screening for malignant [facility] 00:00:00 neoplasm of colon Medical Ce nter (procedure) [code = 584464662] Future Scheduled 1973 Sigmoidoscopy [facility]] Medical Cent[facility] r Future Scheduled 1973 CT Colonography (combo) [facility] 00:00:00 [code = CT Colonography [facility] (combo)] Future Scheduled 1973 Screening for malignant [facility] 00:00:00 neoplasm of colon Medical Ce nter (procedure) [code = 641434218] Future Scheduled 1973 Screening for malignant [facility] 00:00:00 neoplasm of colon Medical Ce nter (procedure) [code = 716345596] Future Scheduled 1973 Screening for malignant [facility] 00:00:00 neoplasm of colon Medical Ce nter (procedure) [code = 337328291] Future Scheduled 1973 Screening for malignant [facility] 00:00:00 neoplasm of colon Medical Ce nter (procedure) [code = 148940841] Future Scheduled 1973 Sigmoidoscopy [facility]] Medical Cent[facility] r Future Scheduled 1973 CT Colonography (combo) [facility] 00:00:00 [code = CT [facility] ([facility] Future Scheduled 1973 Screening for malignant [facility] 00:00:00 neoplasm of colon Medical Ce nter (procedure) [code = 846711537] Future Scheduled 1973 Screening for malignant [facility] 00:00:00 neoplasm of colon Medical Ce nter (procedure) [code = 213831622] Future Scheduled 1973 Screening for malignant [facility] 00:00:00 neoplasm of colon Medical Ce nter (procedure) [code = 075796303] Future Scheduled 1973 Screening for malignant [facility] 00:00:00 neoplasm of colon Medical Ce nter (procedure) [code = 994207606] Future Scheduled 1973 Sigmoidoscopy [facility]] Medical Cente r Future Scheduled 1973 CT Colonography (combo) [facility] 00:00:00 [code = CT [facility] ([facility])] Future Scheduled 1973 Screening for malignant [facility] 00:00:00 neoplasm of colon Medical Ce nter (procedure) [code = 840074894] Future Scheduled 1973 Screening for malignant [facility] 00:00:00 neoplasm of colon Medical Ce nter (procedure) [code = 252955958] Future Scheduled [address] Screening for malignant [facility] 00:00:00 neoplasm of colon [facility] (procedure) [code = 081153231] Future Scheduled 1973 Screening for malignant [facility] 00:00:00 neoplasm of colon Medical Ce nter (procedure) [code = 085203151] Future Scheduled 1973 Sigmoidoscopy [facility]code [facility]] Medical Cente r Future Scheduled 1973 CT Colonography (combo) [facility] 00:00:00 [code = CT Colonography [facility] (combo)] Future Scheduled 1973 Screening for malignant [facility] 00:00:00 neoplasm of colon Medical Ce nter (procedure) [code = 312816470] Future Scheduled 1973 Screening for malignant [facility] 00:00:00 neoplasm of colon Medical Ce nter (procedure) [code = 233238954] Future Scheduled 1973 Screening for malignant [facility] 00:00:00 neoplasm of colon Medical Ce nter (procedure) [code = 205347426] Future Scheduled 1973 Screening for malignant [facility] 00:00:00 neoplasm of colon Medical Ce nter (procedure) [code = 705448593] Future Scheduled 1973 Sigmoidoscopy [facility]code = [facility]oscopy] Medical Cente r Future Scheduled 1973 CT Colonography (combo) [facility] 00:00:00 [code = CT Colonography [facility] (combo)] Future Scheduled 1973 Screening for malignant [facility] 00:00:00 neoplasm of colon Medical Ce nter (procedure) [code = 730833585] Future Scheduled 1973 Screening for malignant [facility] 00:00:00 neoplasm of colon Medical Ce nter (procedure) [code = 931148684] Future Scheduled 1973 Screening for malignant [facility] 00:00:00 neoplasm of colon Medical Ce nter (procedure) [code = 534195949] Future Scheduled 1973 Screening for malignant [facility] 00:00:00 neoplasm of colon Medical Ce nter (procedure) [code = 432394905] Future Scheduled 1973 Sigmoidoscopy [facility]code [facility]oscopy] Medical Catherinee r Future Scheduled 1973 CT Colonography (combo) [facility] 00:00:00 [code = CT Colonography [facility] (combo)] Future Scheduled 1973 Screening for malignant [facility] 00:00:00 neoplasm of colon Medical Ce nter (procedure) [code = 388663500] Future Scheduled 1973 Screening for malignant [facility] 00:00:00 neoplasm of colon Medical Ce nter (procedure) [code = 983840550] Future Scheduled 1973 Screening for malignant [facility] 00:00:00 neoplasm of colon Medical Ce nter (procedure) [code = 902181087] Future Scheduled 1973 Screening for malignant [facility] 00:00:00 neoplasm of colon Medical Ce nter (procedure) [code = 029704872] Future Scheduled 1973 Sigmoidoscopy [facility]code [facility]oscopy] Medical Krista r Future Scheduled 1973 CT Colonography (combo) [facility] 00:00:00 [code = CT Colonography [facility] (combo)] Future Scheduled 1973 Screening for malignant [facility] 00:00:00 neoplasm of colon Medical Ce nter (procedure) [code = 448068707] Future Scheduled 1973 Screening for malignant [facility] 00:00:00 neoplasm of colon Medical Ce nter (procedure) [code = 382392219] Future Scheduled 1973 Screening for malignant [facility] 00:00:00 neoplasm of colon Medical Ce nter (procedure) [code = 749796424] Future Scheduled 1973 Screening for malignant [facility] 00:00:00 neoplasm of colon Medical Ce nter (procedure) [code = 977456718] Future Scheduled 1973 Sigmoidoscopy [code [facility]oscopy] Medical Catherinee r Future Scheduled 1973 CT Colonography (combo) [facility] 00:00:00 [code = CT Colonography [facility] (combo)] Future Scheduled 1973 Screening for malignant [facility] 00:00:00 neoplasm of colon Medical Ce nter (procedure) [code = 421603563] Future Scheduled 1973 Screening for malignant [facility] 00:00:00 neoplasm of colon Medical Ce nter (procedure) [code = 693390119] Future Scheduled 1973 Screening for malignant [facility] 00:00:00 neoplasm of colon Medical Ce nter (procedure) [code = 702395217] Future Scheduled 1973 Screening for malignant [facility] 00:00:00 neoplasm of colon Medical Ce nter (procedure) [code = 579660589] Future Scheduled 1973 Sigmoidoscopy [code [facility]oscopy] Medical Cente r Future Scheduled 1973 CT Colonography (combo) [facility] 00:00:00 [code = CT Colonography [facility] (combo)] Future Scheduled 1973 Screening for malignant [facility] 00:00:00 neoplasm of colon Medical Ce nter (procedure) [code = 183715168] Future Scheduled 1973 Screening for malignant [facility] 00:00:00 neoplasm of colon Medical Ce nter (procedure) [code = 000811767] Future Scheduled 1973 Screening for malignant [facility] 00:00:00 neoplasm of colon Medical Ce nter (procedure) [code = 778285346] Future Scheduled 1973 Screening for malignant [facility] 00:00:00 neoplasm of colon Medical Ce nter (procedure) [code = 629207630] Future Scheduled 1973 Sigmoidoscopy [code = [facility]] Medical Cente r Future Scheduled 1973 Screening for malignant [facility] 00:00:00 neoplasm of colon Medical Ce nter (procedure) [code = 401443240] Future Scheduled 1973 Screening for malignant [facility] 00:00:00 neoplasm of colon Medical Ce nter (procedure) [code = 958849751] Future Scheduled COVID-19 VACCINE (1) [facility] [code = COVID-19 VACCINE Hos pital (1)] Future Scheduled Hepatitis C screening [facility] [code = Hospital 531634195] Future Scheduled Screening for malignant [facility] neoplasm of cervix Hospital (procedure) [code = 089712768] Future Scheduled INFLUENZA VACCINE [code = [facility] INFLUENZA VACCINE] Hospital Encounters Start End Encounter Admission Attending Care Care Encounter Source Date/Time Date/Time Type Type Clinicians Facility Department ID 2021-04-25 Outpatient [facility] [id number] [place] 12:28:46 Critical access hospital 2020-12-18 Outpatient [facility] [id number] [place] 04:17:31 Critical access hospital 2023-02-12 2023-02-12 Emergency [facility] [id number] Univers 16:33:00 16:46:00 FABRICIO kowalski [facility] 2023-02-12 2023-02-12 [facility] 1.2.989.372 [id number] Univers 16:33:00 16:46:00 Fabricio GALLARDO 350.1.13.10 i ty of [place] 4.2.7.2.686 [facility] [id number] [address] 2022-12-11 2022-12-12 Emergency X [facility] ERT [id number] Univers 20:26:00 02:05:00 MIHIR kowalski [facility] 2022-12-11 2022-12-12 Emergency [facility] 1.2.697.647 3425 [id number] Univers 20:26:00 02:05:00 Mihir GALLARDO 350.1.13.10 ity [facility] 4.2.7.2.686 [facility] [id number] [address] 2022-11-27 2022-11-27 Emergency [facility] ERT [id number] Univers 13:12:00 20:16:00 SIMRAN kowalski [facility] 2022-11-27 2022-11-27 [facility] 1.2.123.110 [id number] 83940 Univers 13:12:00 20:16:00 Simran GALLARDO 350.1.13.10 i ty of [place] 4.2.7.2.686 [facility] [id number] [facility] [address] 2022-11-27 2022-11-27 Orders Doctor ELGIN 1.2.840.114 [id number] Univers 00:00:00 00:00:00 Only Unassigned, JOVANNA 350.1.13.10 ity [place] [facility] 4.2.7.2.686 Donal [id number] [facility] [address] 2022-08-14 2022-08-14 Emergency [facility] 1.2.572.709 [id number] 3415 Univers 20:40:00 23:10:00 Halima Parminder SAMI 350.1.13.10 ity of [place] 4.2.7.2.686 [facility] [id number] [place] [address] Branch 2022-08-14 2022-08-14 Emergency X [facility] ERT [id number] Univers 20:40:00 23:10:00 [facility] 2022-05-16 Outpatient Arceneaux_C VFP VFP 221 1653-20 [facility] 00:00:00 00:00:00 [id number] Family Practic e 2021-06-29 2021-06-29 Emergency James, 1.2.840.1 [id number] Methodi 10:17:00 12:01:00 Haroon Young 74095.1.[address] 3.430.2.7 Hospit a .3.889869 l .8 2021-06-29 2021-06-29 Travel 1.2.840.1 1.2.173.669 0340 [id number] Methodi 00:00:00 00:00:[address] 3.430.2.7 0.2.7.3.698 Ho spita .3.287779 084.8 l .8 2021-05-05 2021-05-06 Emergency ER Boles, [facility] [id number] 20:22:00 01:24:00 Joe Lai [facility] 2021-05-05 2021-05-05 Emergency ER [facility] Emergency [id number] [facility] 20:07:00 20:07:00 2021-05-05 2021-05-05 [facility] [id number] [facility]00 [facility] 2021-04-25 2021-04-25 Office VINCE Olivares [facility] 1.2.840.114 [id number] [place] 10:00:00 12:28:43 Visit Leandro [facility] 350.1.13.58 [facility] [address] 4 9.2.7.2.686 [id number] 4 2021-02-18 2021-02-18 Emergency E MATTHIAS, [facility] 7503 [facility] 08:39:00 12:51:00 TEJAL 2021-02-08 2021-02-08 Orders Waleska Henriquez [facility] 1.2.840.11 4 [id number] [place] 00:00:00 00:00:00 Only Waleska Henriquez [facility] 350.1.13.58 Health [address] 4 9.2.7.2.686 [id number] 4 2021-02-08 2021-02-08 Orders VINCE Henriquez [facility] 1.2.840.114 [id number] [id number] 00:00:00 00:00:00 Only Waleska [facility] 350.1.13.58 [address] 4 9.2.7.2.686 [id number] 4 2020-12-20 2020-12-20 Telephone Vinson, 1.2.840.1 [id number] 2100 [id number] Methodi 00:00:00 00:00:[address] 3.430.2.7 Hospit a .3.677123 l .8 2020-12-16 2020-12-16 AppointVINCE Knutson [facility] 7410 7276 [place] 11:00:00 11:00:00 t; LEANDRO OLIVARES [facility] PANTOJA M.D. Cardiology [facility] 2020-12-14 2020-12-14 Telephone Vinson, 1.2.840.1 [id number] 2099 [id number] Methodi 00:00:00 00:00:[address] 3.430.2.7 Hospit a .3.084268 l .8 2020-12-07 2020-12-08 Outpatient E ERLINDA, [facility] PUL 7502 [facility] 17:43:00 13:15:00 VIRAL 2020-12-08 2020-12-08 EXT [facility] OP Khalid, EXT MSRDP 1.2.840.114 1 [id number] [place] 00:00:00 00:00:00 Adnan LOCATION 350.1.13.58 H ealth 9.2.7.2.686 [id number] 0 2020-12-08 2020-12-08 EXT [facility] OP Khalid, EXT MSRDP 1.2.840.114 1 [id number] [place] 00:00:00 00:00:00 Adnan LOCATION 350.1.13.58 H ealth 9.2.7.2.686 [id number] 0 2020-12-06 2020-12-06 Appointmen JEANNIE CLARKE UTP [id number] [place] 14:00:00 14:00:00 t; BANK BEHARI Phys ici millicent [facility]BERS SANDIPAN SANDIPAN PATI, M.D. PATI, M.D. 2020-12-03 2020-12-06 [facility] 1.2.840.1 [id number] Methodi 16:45:00 11:32:00 Obdulio Spicer 88577.1.[address] 3.430.2.7 Hospit a .3.032200 l .8 2020-12-02 2020-12-02 Appointmen VINCE OLIVARES ACTAT [id number] 1 [place] 11:15:00 11:15:00 t; LEANDRO OLIVARES, Surgery - Chalo Cruz M.D. 2020-11-17 2020-11-17 Emergency García, 1.2.840.1 [id number] 2100 [id number] Methodi 17:26:00 20:59:[address] Mendel 3.430.2.7 Hospit a .3.899234 l .8 2020-11-17 2020-11-17 Michael MATHEWS, [facility] UTP [id number] [place] 15:00:00 15:00:00 t; Carter ROQUE i, M.D. ans ASHTON, M.D. 2020-11-17 2020-11-17 Travel 1.2.840.1 1.2.715.486 7604 955807 Methodi 00:00:00 00:00:[address] 3.430.2.7 0.2.7.3.698 Ho spita .3.694879 084.8 l .8 2020-11-02 2020-11-03 Emergency Dionicio, 1.2.840.1 [id number] 2 [id number] Methodi 23:00:00 01:47:[address] Nelsy 3.430.2.7 Hospit a .3.394129 l .8 2020-11-02 2020-11-02 Travel 1.2.840.1 1.2.346.895 9670 900201 Methodi 00:00:00 00:00:[address] 3.430.2.7 0.2.7.3.698 Ho spita .3.282706 084.8 l .8 2020-09-16 2020-09-17 Emergency [place] 1.2.840.1 1041 02733 [id number] Methodi 13:34:00 13:30:00 Clarice Brannona 83709.1.[address] Lj Thakkar Britni 3.430.2.7 Hospita .3.621038 l .8 2020-09-10 2020-09-11 Emergency Jose Elias Torres 1.2.840.1 1041 70504 [id number] Methodi 22:04:00 18:12:00 Lydia Oden 13221.1.[address] Maribel Dickey 3.430.2.7 H yeni KimblairLj briscoeed .3.378304 l .8 2020-09-10 2020-09-10 Travel 1.2.840.1 1.2.006.530 9724 256694 Methodi 00:00:00 00:00:[address] 3.430.2.7 0.2.7.3.698 Ho spita .3.237906 084.8 l .8 2020-07-15 2020-07-16 Emergency García, 1.2.840.1 [id number] 2099 [id number] Methodi 20:20:00 01:48:[address] Mendel 3.430.2.7 Hospit a .3.079704 l .8 2020-07-15 2020-07-15 Travel 1.2.840.1 1.2.258.047 8454 553643 Methodi 00:00:00 00:00:[address] 3.430.2.7 0.2.7.3.698 Ho spita .3.118243 084.8 l .8 2020-05-06 2020-05-08 Emergency Kevin Sood 1.2.840.1 1041 43763 [id number] Methodi 00:09:00 12:49:00 Blaze Squires 17542.1.[address] 3.430.2.7 Hospit a .3.784290 l .8 2020-05-06 2020-05-06 Travel 1.2.840.1 1.2.288.010 8569 660394 Methodi 00:00:00 00:00:[address] 3.430.2.7 0.2.7.3.698 Ho spita .3.618818 084.8 l .8 2020-02-20 2020-02-[address] [facility] Emergency [id number] [facility] 19:04:00 19:04:00 2020-02-20 2020-02-20 Outpatient FBCOVID FBCOVID [id number] -20 FBCOVID 00:00:00 00:00:00 [id number] 6451-06-24 2020-02-04 Outpatient NAE [place]ARKLEY [place] 77600 69489 [facility] 10:15:00 23:59:00 CWANZA [facility] 2020-02-04 2020-02-04 Emergency ER [facility] Emergency [id number] [facility] 05:29:00 05:29:00 2019-12-03 2019-12-03 Emergency E ALI, BRITNI [facility] 7501 Memoria 16:11:00 19:03:00 [facility] 2019-12-03 2019-12-03 Outpatient KARISHMA, [facility] 0122 Memoria 17:00:00 18:55:00 FARID l [facility] 2019-10-12 2019-10-12 Emergency [facility] [id number] [facility] 17:06:00 17:06:00 [id number] 2019-08-25 2019-08-25 Emergency E [facility] 0013 [facility] 17:44:00 17:44:00 2016-02-13 2016-02-13 [facility] [id number] 475 Memoria 05:43:00 11:41:00 Emergency r Antonio 00 l [facility] 2016-02-13 2016-02-13 [facility] [id number] 475 Memoria 05:43:00 11:41:00 Emergency r [place] 00 l [facility] 2016-02-13 2016-02-13 Outpatient Fishman, [facility] [id number] 00:43:00 06:41:00 Malorie Zenia Palacios 2014-09-04 2014-09-04 [facility] [id number] 675 Memoria 07:09:00 09:15:00 Emergency r [place] 19 l [facility] 2014-09-04 2014-09-04 [facility] [id number] 675 Memoria 07:09:00 09:15:00 Emergency r Antonio 19 l [facility] 2014-09-04 2014-09-04 Outpatient Aldo, 2.16.840. 2.16.840.1. [id number] 01:09:00 03:15:00 Tatsuo 1.301565. 309559.3.61 19 3.615.0.1 5.0.953 15 4808-01-12 2014-08-24 [facility] [id number] 675 Memoria 17:17:00 22:15:00 Emergency r [place] 18 l [facility] 2014-08-24 2014-08-24 [facility] [id number] 675 Memoria 17:17:00 22:15:00 Emergency r Antonio 18 l [facility] 2014-08-24 2014-08-24 Outpatient Aldo, 2.16.840. 2.16.840.1. [id number] 11:17:00 16:15:00 Tatsuo 1.142169. 021633.3.61 18 3.615.0.1 5.0.101 Results Test Description Test Time Test Comments [...] 34.2 g/dL 31.6-35.1 RDW-SD (test code = 43458-2) 40.3 fL 39.0-49.9 RDW-CV (test code = 788-0) 12.5 % 12.0-15.5 PLT (test code = 777-3) 437 See_Comment H [Au tomated message] The system which ge nerated this result transmit gaye reference range: 166 - 35 8 10*3/?L. The reference range was not used to interpret th is result as normal/abnormal . MPV (test code = 01563-8) 9.9 fL 9.5-12.9 NRBC/100 WBC (test code = 0.0 See_Comment [ Automated message] The 9914443901) system which ge nerated this result transmit gaye reference range: 0.0 - 10 .0 /100 WBCs. The reference r ozzy was not used to interpr et this result as normal/abnor mal. NRBC x10^3 (test code = See_Comment [Au tomated message] The 9977190726) system which ge nerated this result transmit gaye reference range: 10*3/?L. The reference range was not u sed to interpret this result as normal/abnormal . SEG % (test code = 82318-0) 41 % 33-76 LYMPH % (test code = 48 % 14-54 80764-9) MONO % (test code = 16620-7) 8 % 0-4 H EOS % (test code = 85710-0) 3 % 0-3 ANC (test code = 753-4) 4.28 10*3/uL 1.88-7.09 Lab Interpretation (test Abnormal code = 62954-6) [facility]07655[facility]2022-12-12 05:29:31 Test Item Value Reference Range Interpretation Comments NA (test code = 138 mmol/L 135-145 3091092609) K (test code = 4.3 mmol/L 3.5-5.0 8492860286) CL (test code = 106 mmol/L 98-108 6561999181) CO2 TOTAL (test code = 21 mmol/L 23-31 L 9350061070) AGAP (test code = 11 2-16 4118315836) BUN (test code = 8 mg/dL 7-23 8407964045) GLUCOSE (test code = 113 mg/dL 70-110 H 0942037718) CREATININE (test code = 0.59 mg/dL 0.50-1.04 2559893703) TOTAL BILI (test code = 1.0 mg/dL 0.1-1.1 4995193416) CALCIUM (test code = 9.3 mg/dL 8.6-10.6 4962171197) T PROTEIN (test code = 7.3 g/dL 6.3-8.2 1264278864) ALBUMIN (test code = 4.3 g/dL 3.5-5.0 4774351326) ALK PHOS (test code = 59 U/L 34-122 4288417203) ALTv (test code = 25 U/L 5-35 1742-6) AST(SGOT) (test code = 24 U/L 13-40 1136141093) eGFR (test code = 108.3 mL/min/1.73m2 0381466783) CIRO (test code = CIRO) Association of [...] tests). Lab Interpretation Abnormal (test code = 35904-2) [facility] 05:29:31 Test Item Value Reference Range Interpretation Comments LIPASE (test code = 1565823453) 133 U/L 0-220 Lab Interpretation (test code = Normal 44130-5) [facility] [id number] 23:18:00 Test Item Value Reference Range Interpretation Comments POCT PREG (test code = 1605) Negative On board controls acceptable with Present C Line (test code = 3574) POCT PREG LOT # (test code = 3575) [id number] POCT PREG TEST DATE (test 05-18-2024 code = 3576) Lab Interpretation (test code = Normal 62934-7) [facility] (NA, K, CL, CO2, GLUCOSE, BUN, CREATININE, CA)2022-11-27 20:08:10 Test Item Value Reference Range Interpretation Comments NA (test code = 138 mmol/L 135-145 0310469595) K (test code = 4.7 mmol/L 3.5-5.0 3335956388) CL (test code = 104 mmol/L 98-108 8035105982) CO2 TOTAL (test code = 21 mmol/L 23-31 L 3930836785) AGAP (test code = 13 2-16 6400057973) BUN (test code = 6 mg/dL 7-23 L 6995299542) GLUCOSE (test code = 98 mg/dL 70-110 1655148889) CREATININE (test code = 0.55 mg/dL 0.50-1.04 9197927924) CALCIUM (test code = 9.0 mg/dL 8.6-10.6 3325161117) eGFR (test code = 117.5 mL/min/1.73m2 6079465932) CIRO (test code = CIRO) Association of [...] tests). Lab Interpretation Abnormal (test code = 56400-0) [facility] WITH [id number] 19:53:46 Test Item Value Reference Range Interpretation Comments WBC (test code = 9.87 See_Comment [Automated 3083-2) message] The sy stem which generated this result transmitted reference range : 4.30 - 11.10 10*3/?L. The reference range was not used to interpret this result as normal/abnormal . RBC (test code = 4.86 See_Comment [Automated 663-7) message] The sy stem which generated this [...] RDW-SD (test code = 41.0 fL 39.0-49.9 40827-8) RDW-CV (test code = 12.8 % 12.0-15.5 788-0) PLT (test code = 399 See_Comment H [Automated 777-3) message] The sy stem which generated this result transmitted reference range : 166 - 358 10*3/ ?L. The reference r ozzy was not used to interpret this result as normal/abnormal . MPV (test code = 9.6 fL 9.5-12.9 30904-4) NRBC/100 WBC (test 0.0 See_Comment [Automat ed code = 8402214681) message] The system which generated this result transmitted reference range : 0.0 - 10.0 /100 WBCs. The refer ence range was not u sed to interpret th is result as normal/abnormal . NRBC x10^3 (test code See_Comment [Auto mated = 4747563777) message] The s ystem which generated this result transmitted reference range : 10*3/?L. The reference range was not used to interpret this result as normal/abnormal . GRAN MAT (NEUT) % 57.8 % (test code = 770-8) IMM GRAN % (test code 0.70 % = 1396642544) LYMPH % (test code = 32.4 % 736-9) MONO % (test code = 5.2 % 5905-5) EOS % (test code = 3.0 % 713-8) BASO % (test code = 0.9 % 706-2) GRAN MAT x10^3(ANC) 5.70 10*3/uL 1.88-7.09 (test code = 9077836866) IMM GRAN x10^3 (test 0.07 10*3/uL 0.00-0.06 H code = 0105473516) LYMPH x10^3 (test code 3.20 10*3/uL 1.32-3.29 = 731-0) MONO x10^3 (test code 0.51 10*3/uL 0.33-0.92 = 742-7) EOS x10^3 (test code = 0.30 10*3/uL 0.03-0.39 711-2) BASO x10^3 (test code 0.09 10*3/uL 0.01-0.07 H = 704-7) Lab Interpretation Abnormal (test code = 20192-9) [facility], [id number] 04:20:10 Test Item Value Reference Range Interpretation Comments PREG SERUM (test code Negative = 0463972261) CIRO (test code = CIRO) Less than 10 IU/L. ?If low titer or ectopic is suspected, resubmit specimen in 48-72 hours. [facility] [id number] 03:49:08 Test Item Value Reference Interpretation Comments Range TROPONIN I (test 0.001 ng/mL See_Comment [Automated code = 0913079489) message] The system which generated this result [...] biotin. Lab Interpretation Normal (test code = 49535-9) [facility] PAN[facility] (56359)2022-08-15 03:37:26 Test Item Value Reference Range Interpretation Comments NA (test code = 138 mmol/L 135-145 3639327437) K (test code = 3.6 mmol/L 3.5-5.0 9065848359) CL (test code = 105 mmol/L 98-108 0416686158) CO2 TOTAL (test code 24 mmol/L 23-31 = 8209948531) AGAP (test code = 2-16 6408531108) BUN (test code = 9 mg/dL 7-23 4567713896) GLUCOSE (test code = 105 mg/dL 70-110 9892275064) CREATININE (test code 0.75 mg/dL 0.50-1.04 = 2021394758) TOTAL BILI (test code 0.6 mg/dL 0.1-1.1 = 7548159374) CALCIUM (test code = 8.7 mg/dL 8.6-10.6 2834920518) T PROTEIN (test code 6.7 g/dL 6.3-8.2 = 6730504746) ALBUMIN (test code = 3.9 g/dL 3.5-5.0 3321090984) ALK PHOS (test code = 69 U/L 34-122 4792951326) ALTv (test code = 35 U/L 5-35 2-6) AST(SGOT) (test code 27 U/L 13-40 = 4434998685) eGFR (test code = mL/min/1.73m2 7639856726) CIRO (test code = CIRO) Association of [...] or urine or abnormalities in imaging tests). [facility] WITH [id number] 03:25:05 Test Item Value Reference Range Interpretation [...] RDW-SD (test code = 41.3 fL 39.0-49.9 22809-1) RDW-CV (test code = 12.5 % 12.0-15.5 788-0) PLT (test code = See_Comment H [Automated 777-3) message] The sy stem which generated this result transmitted reference range : 166 - 358 10*3/ ?L. The reference r ozzy was not used to interpret this result as normal/abnormal . MPV (test code = 9.4 fL 9.5-12.9 L 40377-0) NRBC/100 WBC (test See_Comment [Automat ed code = [id number]) message] The system which generated this result transmitted reference range : 0.0 - 10.0 /100 WBCs. The refer ence range was not u sed to interpret th is result as normal/abnormal . NRBC x10^3 (test code See_Comment [Auto mated = [id number]) message] The s ystem which generated this result transmitted reference range : 10*3/?L. The reference range was not used to interpret this result as normal/abnormal . GRAN MAT (NEUT) % 55.2 % (test code = 770-8) IMM GRAN % (test code 0.50 % = [id number]) LYMPH % (test code = 30.7 % 736-9) MONO % (test code = 6.4 % 5905-5) EOS % (test code = 6.2 % 713-8) BASO % (test code = 1.0 % 706-2) GRAN MAT x10^3(ANC) 5.54 10*3/uL 1.88-7.09 (test code = [id number]) IMM GRAN x10^3 (test 0.05 10*3/uL 0.00-0.06 code = [id number]) LYMPH x10^3 (test code 3.08 10*3/uL 1.32-3.29 = 731-0) MONO x10^3 (test code 0.64 10*3/uL 0.33-0.92 = 742-7) EOS x10^3 (test code = 0.62 10*3/uL 0.03-0.39 H 711-2) BASO x10^3 (test code 0.10 10*3/uL 0.01-0.07 H = 704-7) Lab Interpretation Abnormal (test code = 12311-5) [id number] 14:27:33 Test Item Value Reference Interpretation Comments Range Levetiracetam (test <2.0 mcg/mL L Referen ce Range: code = [id number]) 12.0-46.0 To xic level is not we ll established. Interpretation should include a clinical evalua tion. For additional information, pl ease refer tohttp://educat ion.SHERPA assistant .TweetMeme/ faq/XIP791(This link is being provid ed forinformationa l/edu cational purpos es only.) This jose t was developed and i ts analytical performance characteristics have been determined by [employer]. It has not been cleared or appr christiano by theFDA. This assay has been validated pursu ant to the CLIA regulations and is used for clinic al purposes. CIRO (test code = Performing Lab CIRO) *[employer], [address] [place] [address] Parminder Szymanski MD Lab Interpretation Abnormal (test code = 27891-1) [facility] CenterLevetiracetam [id number] 14:27:33 Test Item Value Reference Interpretation Comments Range Levetiracetam (test <2.0 mcg/mL L Referen ce Range: code = 4846619) 12.0-46.0 To xic level is not we ll established. Interpretation should include a clinical evalua tion. For additional information, pl ease refer tohttp://educat ion.[email or web address]/ faq/TNR075(This link is being provid ed forinformationa l/edu cational purpos es only.) This jose t was developed and i ts analytical performance characteristics have been determined by [employer] . It has not been cleared or appr christiano by theFDA. This assay has been validated pursu ant to the CLIA regulations and is used for clinic al purposes. CIRO (test code = Performing Lab CIRO) *GAGANDEEP [employer] [place], [address] [place] [address] Parminder Szymanski MD Lab Interpretation Abnormal (test code = 34723-0) [facility] CenterCT, BRAIN, WITHOUT [id number] 23:05:00 Unlisted Reason for Exam - Click Yes and Enter Reason Below->No [facility] 1975 Sex: FFINAL REPORT [...] Date/Time: 05/05/2021 23:05:29 CT, SPINE, CERVICAL, WO [id number] 23:05:00Unlisted Reason for Exam - Click Yes and Enter Reason Below->No [facility] NUR : 1975 Sex: FFINAL REPORT [...] Asencio MDReport Verified Date/Time: 05/05/2021 23:05:29 Troponin [id number] 21:22:45 Test Item Value Reference Range Interpretation Comments Troponin I (test code = <0.03 0.00-0.15 02693-1) CIRO (test code = CIRO) Troponin I [...] failure, acidosis, acute neurological disease, and persistent tachyarrhythmia.[facility] ID - THELMA Lab Interpretation (test Normal code = 44364-5) [facility] [id number] 21:22:45 Test Item Value Reference Range Interpretation Comments Troponin I (test code = <0.03 0.00-0.15 10253-5) CIRO (test code = CIRO) Troponin I [...] failure, acidosis, acute neurological disease, and persistent tachyarrhythmia.[facility] ID - THELMA Lab Interpretation (test Normal code = 08048-7) [facility] [id number] 21:22:45 Test Item Value Reference Range Interpretation [...] failure, acidosis, acute neurological disease, and persistent tachyarrhythmia.Actuarial Director ID - JUSTINComprehensive metabolic [id number] 21:20:36 Test Item Value Reference Interpretation Comments Range Protein, Total (test 7.5 See_Comment Specime n code = 2885-2) slightly hemolyzed [Automated message] The system which generated this result transmitted reference range : 6.0 - 8.5 gm/dL . The reference range was not used to interpret this result as normal/abnormal . Albumin (test code = 4.1 g/dL 3.5-5.0 [place] [address]-5) slightly hemolyzed Alkaline Phosphatase 72 U/L 30-115 (test code = 6768-6) Total Bilirubin 1.0 mg/dL 0.1-1.2 Specimen (test code = 1974-2) slightl y hemolyzed Sodium (test code = 141 meq/L 262-176 5516-2) Potassium (test code 3.8 meq/L 3.6-5.5 Specime n = 2823-3) slightly hemolyzed Chloride (test code 104 meq/L 98-106 = 2075-0) CO2 (test code = 24 meq/L 20-29 2028-9) BUN (test code = 7 mg/dL 10-26 L 3094-0) Creatinine (test 0.81 mg/dL 0.50-1.20 Specimen code = 2160-0) slightly hemolyzed Glucose (test code = 92 mg/dL 70-110 2345-7) Calcium (test code = 9.4 mg/dL 8.5-10.5 49095-5) AST (test code = 21 U/L 5-40 Specimen 1920-8) slightly hemolyzed ALT (test code = 27 U/L 5-50 Specimen 1742-6) slightly hemolyzed EGFR (test code = 76 mL/min/1[place]73 [place] [address]-2) m NOT ACCURATE CREATININE CLEARANCE IN PREDICTING GLOMERULAR FILTRATION RATE . ESTIMATED GFR I S NOT APPLICABLE FOR DIALYSIS PATIENTS. CIRO (test code = Actuarial Director ID - CIRO) JUSTINOperator ID - JUSTINOperator [...] THELMA Lab Interpretation Abnormal (test code = 63261-7) [facility] CenterComprehensive metabolic [id number] 21:20:36 Test Item Value Reference Interpretation Comments Range Protein, Total (test 7.5 See_Comment Specime n code = 2885-2) slightly hemolyzed [Automated message] The system which generated this result transmitted reference range : 6.0 - 8.5 gm/dL . The reference range was not used to interpret this result as normal/abnormal . Albumin (test code = 4.1 g/dL 3.5-5.0 [place] n [address]-4) slightly hemolyzed Alkaline Phosphatase 72 U/L 30-115 (test code = 6768-6) Total Bilirubin 1.0 mg/dL 0.1-1.2 Specimen (test code = 1975-2) slightl y hemolyzed Sodium (test code = 141 meq/L 776-294 9098-2) Potassium (test code 3.8 meq/L 3.6-5.5 Specime n = 2823-3) slightly hemolyzed Chloride (test code 104 meq/L 98-106 = 2075-0) CO2 (test code = 24 meq/L 20-29 2028-9) BUN (test code = 7 mg/dL 10-26 L 3094-0) Creatinine (test 0.81 mg/dL 0.50-1.20 Specimen code = 2160-0) slightly hemolyzed Glucose (test code = 92 mg/dL 70-110 2345-7) Calcium (test code = 9.4 mg/dL 8.5-10.5 18380-5) AST (test code = 21 U/L 5-40 Specimen 1920-8) slightly hemolyzed ALT (test code = 27 U/L 5-50 Specimen 1742-6) slightly hemolyzed EGFR (test code = 76 mL/min/1.[place] [address]-7) m NOT ACCURATE CREATININE CLEARANCE IN PREDICTING GLOMERULAR FILTRATION RATE . ESTIMATED GFR I S NOT APPLICABLE FOR DIALYSIS PATIENTS. CIRO (test code = Actuarial Director ID - CIRO) JUSTINOperator ID - JUSTINOperator [...] THELMA Lab Interpretation Abnormal (test code = 46705-5) [facility] CenterCOMPREHENSIVE METABOLIC [id number] 21:20:36 Test Item Value Reference Range Interpretation [...] S NOT APPLICABLE FOR DIALYSIS PATIEN TS. Actuarial Director ID - JUSTINOperator ID - JUSTINOperator ID - JUSTINOperator ID - JUSTINOperator ID - JUSTINOperator ID - JUSTINOperator ID - JUSTINOperator ID - JUSTINOperator ID - JUSTINOperator ID - JUSTINOperator ID - JUSTINOperator ID - JUSTINOperator ID - JUSTINOperator ID - JUSTINOperator ID - JUSTINOperator ID - JUSTINOperator ID - JUSTINOperator ID - JUSTINOperator ID - JUSTINCBC with platelet count + automated [id number] 20:51:36 Test Item Value Reference Range Interpretation Comments WBC (test code = 6690-2) 12.0 See_Comment H [A utomated message] The system [employer] generated this result transmitted ref erence range: 4.0 - 10 .0 K/L. The refe rence range was not u sed to interpret this result as normal/abnor mal. RBC (test code = 789-8) 4.84 See_Comment [Au tomated message] The system [employer] generated this result transmitted ref erence range: 4.00 - 5 .00 M/L. The refe rence range was not u sed to interpret this result as normal/abnor mal. MCHC (test code = 786-4) 34.8 See_Comment [A utomated message] The system [employer] generated this result transmitted ref erence range: [...] H [Aut omated message] 777-3) The system [employer] generated this result transmitted ref erence range: 150 - 43 0 K/CU MM. The referen ce range was not u sed to interpret this result as normal/abnor mal. MPV (test code = 9.7 fL 6.0-11.5 89457-3) nRBC (test code = 413) 0 See_Comment [Aut omated message] The system [employer] generated this result transmitted ref erence range: [...] See_Comment [Aut omated message] 670) The system [employer] generated this result transmitted ref erence range: 1.80 - 8 .00 K/L. The refe rence range was not u sed to interpret this result as normal/abnor mal. # Lymphs (test code = 3.61 See_Comment [Auto mated message] 414) The system [employer] generated this result transmitted ref erence range: 1.48 - 4 .50 K/L. The refe rence range was not u sed to interpret this result as normal/abnor mal. # Monos (test code = 0.86 See_Comment [Autom ated message] 415) The system [employer] generated this result transmitted ref erence range: 0.00 - 1 .30 K/L. The refe rence range was not u sed to interpret this result as normal/abnor mal. # Eos (test code = 416) 0.41 See_Comment [Au tomated message] The system [employer] generated this result transmitted ref erence range: 0.00 - 0 .50 K/L. The refe rence range was not u sed to interpret this result as normal/abnor mal. # Baso (test code = 417) 0.10 See_Comment [A utomated message] The system [employer] generated this result transmitted ref erence range: 0.00 - 0 .20 K/L. The refe rence range was not u sed to interpret this result as normal/abnor mal. Immature 0 % 0-0 Granulocytes-Relative (test code = 2801) Lab Interpretation (test Abnormal code = 00743-7) [facility] with platelet count + automated [id number] 20:51:36 Test Item Value Reference Range Interpretation Comments WBC (test code = 6690-2) 12.0 See_Comment H [A utomated message] The system [employer] generated this result transmitted ref erence range: 4.0 - 10 .0 K/L. The refe rence range was not u sed to interpret this result as normal/abnor mal. RBC (test code = 789-8) 4.84 See_Comment [Au tomated message] The system [employer] generated this result transmitted ref erence range: 4.00 - 5 .00 M/L. The refe rence range was not u sed to interpret this result as normal/abnor mal. MCHC (test code = 786-4) 34.8 See_Comment [A utomated message] The system [employer] generated this result transmitted ref erence range: [...] H [Aut omated message] 777-3) The system [employer] generated this result transmitted ref erence range: 150 - 43 0 K/CU MM. The referen ce range was not u sed to interpret this result as normal/abnor mal. MPV (test code = 9.7 fL 6.0-11.5 38760-3) nRBC (test code = 413) 0 See_Comment [Aut omated message] The system [employer] generated this result transmitted ref erence range: [...] See_Comment [Aut omated message] 670) The system [employer] generated this result transmitted ref erence range: 1.80 - 8 .00 K/L. The refe rence range was not u sed to interpret this result as normal/abnor mal. # Lymphs (test code = 3.61 See_Comment [Auto mated message] 414) The system [employer] generated this result transmitted ref erence range: 1.48 - 4 .50 K/L. The refe rence range was not u sed to interpret this result as normal/abnor mal. # Monos (test code = 0.86 See_Comment [Autom ated message] 415) The system [employer] generated this result transmitted ref erence range: 0.00 - 1 .30 K/L. The refe rence range was not u sed to interpret this result as normal/abnor mal. # Eos (test code = 416) 0.41 See_Comment [Au tomated message] The system [employer] generated this result transmitted ref erence range: 0.00 - 0 .50 K/L. The refe rence range was not u sed to interpret this result as normal/abnor mal. # Baso (test code = 417) 0.10 See_Comment [A utomated message] The system [employer] generated this result transmitted ref erence range: 0.00 - 0 .20 K/L. The refe rence range was not u sed to interpret this result as normal/abnor mal. Immature 0 % 0-0 Granulocytes-Relative (test code = 2801) Lab Interpretation (test Abnormal code = 84788-1) [facility] W/PLT COUNT & AUTO [id number] 20:51:36 Test Item Value Reference Range Interpretation [...] (BEAKER) (test code = 2801) Continuous EEG jujxjvurhs8341-12-84 01:51:44CONTINUOUS VIDEO-EEG MONITORING REPORT - END OF STUDY [id number] Date of : 1975 Initial Study Start [...] seizures captured. Onelia Hair MD ICD-10 Code: U625Ujwtnmqxzz EEG dmzmiitrny9681-86-79 12:59:42 CONTINUOUS VIDEO-EEG MONITORING REPORT Patient Name: Shanna BillsMeenakshi#: [id number] Date of : 1975 Initial Study Start [...] seizures captured. Onelia Hair MD ICD-10 Code: O430TNR 12 [id number] 05:31:10 Test Item Value Reference Range Interpretation [...] 04:27,-Vent. rate has increased BY 62 BPM- [place] [address] rqod8651-41-18 05:31:10 Test Item Value Reference Range Interpretation [...] 04:27,-Vent. rate has increased BY 62 BPM- [address]2021-04-25 05:31:10 Test Item Value Reference Range [...] 04:27,-Vent. rate has increased BY 62 BPM- [facility] (routine) - Baseline ABY1544-08-02 01:47:11VIDEO-EEG RECORDING AWAKE & ASLEEP - Baseline [...] Hair MD ICD-10 Code: R569CT Head Wo Swsexlvt5719-50-36 02:53:14EXAMINATION: CT HEAD WO CONTRAST CLINICAL HISTORY: [...] No CT evidence of acute intracranial abnormality. [id number] Interface, Radiology Results Incoming - 12/03/2020 9:56 [...] IMPRESSION:1. No CT evidence of acute intracranial abnormality.[id number] [facility] RNA [Presence] in Respiratory specimen by SOREN with probe jcylbyjkp7465-07-98 02:03:42 Test Item Value Reference Range Interpretation Comments SARS-CoV-2 (COVID-19) RNA Not detected Not-Detected [Presence] in Respiratory specimen by SOREN with probe detection (test code = 40688-1) Whether patient is employed in a healthcare setting (test code = 48907-5) Whether the patient has symptoms related to condition of interest (test code = 48899-5) Patient was hospitalized because of this condition (test code = 43139-1) Whether the patient was admitted to intensive care unit (ICU) for condition of interest (test code = 33744-3) Whether patient resides in a congregate care setting (test code = 23785-7) [facility] 1 Vw Gdmkpouz7777-82-07 23:58:22EXAMINATION: XR CHEST 1 VW PORTABLE CLINICAL [...] no consolidation or effusion.3.The bones are intact.1D2RAD_P C49YowcxmkezB[facility] Scott & [facility]2021-04-23 21:55:13Bladimir Brumfield MD 12/04/2020 3:12 PMCritical CarePerformed by: Bladimir Brumfield MDAuthorized by: Bladimir Cisse MD Critical care provider statement: Critical care time (minutes): 35 Critical caretime was exclusive of: Separately billable procedures and treating other patients Critical care was necessary to treat or prevent imminent or life-threatening deterioration of the following conditions:BRAIN PICKER failure or compromise Critical care was time [...] care for this patient from another provider.: [facility] ED Preliminary Interpretation - Not an Virse9409-82-89 21:55:13 Bladimir Brumfield MD 12/04/2020 3:12 [facility] ED Preliminary Interpretation - Not an OrderPerformed by: Bladimir Brumfield MDAuthorized by: Bladimir Brumfield MD ECG reviewed by ED Physician in the absence of a machine bender: yes Rate: ECG rate: 119Rhythm: Rhythm: sinus tachycardia Ectopy: Ectopy: none QRS: QRS axis: Normal QRS intervals: NormalConduction: Conduction: normal ST segments: ST segments: NormalT waves: T waves: normalUrine hjyedrj8949-34-91 01:10:19 Test Item Value Reference Range Interpretation Comments Urine culture (test SEE COMMENT Bacteriu mario screen code = 0028925) negative. [facility] qfaupxl9320-95-06 01:10:19 Test Item Value Reference Range Interpretation Comments Urine culture (test SEE COMMENT Bacteriu mario screen code = 8261229) negative. [facility] fopwaub6006-54-50 01:10:19 Test Item Value Reference Range Interpretation Comments Urine culture (test SEE COMMENT Bacteriu mario screen code = 5320631) negative. [facility][U] XRAY HAND MIN 3 VWS RIGHT [id number] 15:17:00Images acquired, not reported on this accession number.[facility] Hand 3+ Vw Right 2020-11-03 04:37:16EXAMINATION: XR HAND 3 VW RIGHT INDICATION: dog bite COMPARISON: None IMPRESSION: 3 views of the right hand were obtained.No visible acute fracture or dislocation.No visible radiodense foreign material. [facility] MPHYMATHm Interface, Radiology Results Incoming - 11/02/2020 11:40 PM CDT EXAMINATION: XR HAND 3 VW RIGHTINDICATION: dog biteCOMPARISON: NoneIMPRESSION:3 views of the right hand were obtained.No visible acute fracture or dislocation.No visible radiodense foreign material.[facility]HYMATMethod[facility] HospitalEEG (routine) 2020-09-17 16:59:35Date of Study [...] movements noted on this tracing by the filling technician did not have an epileptic correlate. [...] in Respiratory specimen by SOREN with probe pmhnvzssu3981-52-61 00:31:49 Test Item Value Reference Range Interpretation Comments SARS-CoV-2 (COVID-19) RNA Not detected Not-Detected [Presence] in Respiratory specimen by SOREN with probe detection (test code = 84011-9) [facility] (routine)2020-09-11 20:16:18Date of Service: September 11ate of [...] in Respiratory specimen by SOREN with probe ivqeemwwc9793-60-32 07:15:55 Test Item Value Reference Range Interpretation Comments SARS-CoV-2 (COVID-19) RNA Not detected Not-Detected [Presence] in Respiratory specimen by SOREN with probe detection (test code = 41129-4) [facility] Pelvis Wo Rllymspj5907-42-02 05:45:01EXAMINATION: CT ABDOMEN PELVIS WO CONTRAST HISTORY: [...] No high grade enterocolitis. No bowel obstruction.1D2RA D_PS02[facility]ARS-CoV-[facility] (COVID-19) RNA [Presence] in Respiratory specimen by SOREN with probe qcfccojhg5724-10-74 05:23:42 Test Item Value Reference Range Interpretation Comments SARS-CoV-2 (COVID-19) RNA Not detected Not-Detected [Presence] in Respiratory specimen by SOREN with probe detection (test code = 24980-4) [facility]ENTERTransthoracic Echocardiogram Complete, (w Contrast, Strain and 3D if needed)2020-05-11 04:52:19 Test Item Value Reference Range Interpretation Comments Velocity Ratio (V1/V2) 0.85 m/s (test code = 4689) IVS,d (test code = 1.00 cm 3257854938) EF (test code = 52.31 % 0393830385) Ascending aorta (test 2.67 cm code = 3456718013) LVPWD,d (test code = 1.00 cm 9440893616) AoV Mean PG (test code mmHg = 3809164483) AV LVOT peak gradient mmHg (test code = 8523155207) MV mean gradient (test mmHg code = 2666160761) MV valve area p 1/2 3.31 cm2 method (test code = 1738184425) PV Pk Grad (test code = mmHg 1993752103) E/A ratio (test code = 3519237140) E wave decelartion time msec (test code = 0091286435) LVOT Diam,S (test code 1.98 cm = 6539515576) LVOT area (test code = 3.08 cm2 2182111309) LVOT Vmax (test code = 0.96 m/s 7700973002) LVOT VTI (test code = 0.21 m 0357785839) RVOT Vmax (test code = 0.58 m/s 8779695886) AoV Peak PG (test code mmHg = 6607617036) MV Peak E Giuliano (test 0.94 m/s code = 9429111391) MV stenosis pressure 66.39 ms 1/2 time (test code = 5506780683) MV Peak A Giuliano (test 0.74 m/s code = 7579773723) Ao Root Diameter (test 2.99 cm code = 2274386625) AoV Area, Vmax (test 2.60 cm2 code = 2901701068) AoV Area, VTI (test 2.95 cm2 code = 4288591402) AoV Vmax (test code = 1.13 m/s 9796516332) IVS/LVPW,2D (test code = 9412891186) Left Atrium Dimension 3.10 cm Anterior (test code = 7030577318) LV,d (test code = 4.15 cm 5103571539) LV,s (test code = 3.05 cm 2636078284) PV VMAX (test code = 0.78 m/s 9207911610) TR Vpeak (test code = 1.85 mm/s 7714495311) MV E A ratio (test code = 9875025513) TR pk grad (test code = mmHg 5058480071) MR peak grad (test code mmHg = 8490361227) Ao Root Diameter (test 2.99 cm code = 9359830138) LV SYS VOL (test code = 36.41 ml 7649518401) LV RIOS VOL (test code 76.34 ml = 8962898020) LV SV Teich 2D (test 39.93 ml code = 2340925717) LV Vol s Teich PSAX 36.41 ml (test code = 9495050234) MV Vmax (test code = 0.89 m 3546527703) MV VTI Tips (test code 0.22 m = 8829871869) RVOT pk grad (test code mmHg = 6232063629) AoV Vmn (test code = 6763467912) LV FS Cube 2D (test code = 6725339617) LV FS Teich 2D (test code = 2652263642) AoV VTI (test code = 0.22 m 6855695376) LA Area d A4C (test 12.41 cm2 code = 8280251433) LV EF,2D (test code = 60.32 % 3377771947) MR Vmax (test code = 4.15 m/s 5053150092) MV AE ratio (test code = 5017046209) LVOT Vmn (test code = 5066328477) Aov area Vmn (test code 2.47 cm2 = 2833342597) LA Vol d MOD A4C (test 27.63 ml code = 2669831529) LVOT mean grad (test mmHg code = 7854173493) MAX Pred HR (test code = 6626028839) 85 of MPHR (test code = 4074792432) Calc MPHR (test code = bpm 8870311660) LV SV Cube 2D (test 43.08 ml code = 6406654622) LV vol d cube 2D (test 71.42 ml code = 6064444561) LV vol s cube 2D (test 28.34 ml code = 7345396926) MV Decel slope (test 4.12 m/s2 code = 7486098434) Pred Exer Dur R1 (test code = 4822718418) Pred METS R1 (test code = 9388566070) CIRO (test code = CIRO) Left Ventricle: [...] regurgitation. No evidence of aortic valve stenosis. Yazidi Lonnie duplex venous upper bnkyqxhxw5024-95-30 06:14:50 EXAMINATION: US DUPLEX VENOUS UPPER EXTREMITY [...] visualized veins of the right upper extremity. [facility]- [id number] [facility], Radiology Results - 05/08/2020 1:17 AM [...] the visualized veins of the right upper extremity.[facility]-[id number] Health [facility] (routine)2020-05-07 22:01:23Date of Service: May 07, 2020.Date [...] a diagnosis of epilepsy.MRI Brain W Wo Wdebgtqx5609-67-70 03:27:20EXAMINATION: MRI BRAIN W WO CONTRAST CLINICAL [...] in Respiratory specimen by SOREN with probe dwoguugxy8029-33-79 12:31:16 Test Item Value Reference Range Interpretation Comments SARS-CoV-2 (COVID-19) RNA Not detected Not-Detected [Presence] in Respiratory specimen by SOREN with probe detection (test code = 37544-0) [facility]) 2020-02-22 21:37:00 Test Item Value Reference Range Interpretation Comments SARS-COV2/RT-PCR (test code = Positive Not Detected, Negative A A 5906162) SARS-COV-2 PERFORMING LAB CPL (test code = 2279881) CT, CHEST, WITHOUT NFLCPLXP3069-07-59 00:54:00Reason for exam:->cough, ?covidIs the patient ?->NoWhat [...] MDReport Verified Date/Time: 02/21/2020 00:54:38 PREGNANCY SCREEN, [id number] 00:28:00 Test Item Value Reference Range Interpretation Comments TEST URINE (BEAKER) (test Negative code = 583) CBC W/PLT COUNT & AUTO QPKQBPDEOZKP2618-86-12 22:46:00 Test Item Value Reference Range Interpretation [...] (BEAKER) (test code = 2801) LACTIC ACID, [id number] 22:30:00 Test Item Value Reference Range Interpretation Comments LACTATE BLOOD VENOUS 1.38 mmol/L 0.50-2.00 Specime n slightly (2) (BEAKER) (test hemolyzed code = 3762) Actuarial Director ID - JUSTINBASIC METABOLIC [id number] 22:10:00 Test Item Value Reference Range Interpretation [...] mg/dL 8.5-10.5 (test code = 697) EGFR (SUSANAKER) (test 83 mL/min/1.73 ESTIMA GAYE GFR IS code = 1092) sq m NOT ACCURATE CREATININE CLEARANCE IN PREDICTING GLOMERULAR FILTRATION RATE . ESTIMATED GFR I S NOT APPLICABLE FOR DIALYSIS PATIEN TS. Actuarial Director ID - [id number] 22:09:00 Test Item Value Reference Range Interpretation Comments TROPONIN I (FILIPE) (test code = 397) < ng/mL 0.00-0.15 [...] failure, acidosis, acute neurological disease, and persistent tachyarrhythmia.Actuarial Director ID - [id number], CHEST, 1 VIEW, NON TSTX9844-20-31 20:58:00Reason for exam:->coughIs the patient ?- >NoShould [...] Asencio MDReport Verified Date/Time: 02/20/2020 20:58:56 SARS-COV2/RT-PCR ([facility])2020-02-06 03:25:00 Test Item Value Reference Range Interpretation Comments SARS-COV2/RT-PCR (test code = Positive Not Detected, Negative A A 5454894) SARS-COV-2 PERFORMING LAB CPL (test code = 3087089) URINALYSIS W/ [id number] 08:24:00 Test Item Value Reference Range Interpretation [...] 1663) SOURCE(BEAKER) (test code = 2795) SCREEN, [id number] 08:00:00 Test Item Value Reference Range Interpretation Comments TEST URINE (BEAKER) (test Negative code = 583) RAD, ABDOMEN/KUB 1 VIEW [id number] 07:21:00Reason for exam:->FEVERReason for exam:->DIARRHEAReason for exam:->EMESISFINAL REPORT RAD, ABDOMEN/KUB 1 VIEW AP CLINICAL INDICATION: FEVERDIARRHEAEMESIS COMPARISON: None TECHNIQUE: Single, frontal radiograph of the abdomen. FINDINGS: The bowel gas pattern is nonspecific, but nonobstructive. IUD is present. The regional skeleton is intact. IMPRESSION: Nonspecific, nonobstructive bowel gas pattern. Signed: Ling Jin MDReport Verified Date/Time: 02/04/2020 07:21:42 Reading Location: [facility] Radiology Reading Room COMPREHENSIVE METABOLIC [id number] 07:14:00 Test Item Value Reference Range Interpretation [...] S NOT APPLICABLE FOR DIALYSIS PATIEN TS. Actuarial Director ID - [id number] 06:59:00 Test Item Value Reference Range Interpretation Comments LIPASE (BEAKER) (test code = 749) 9 U/L 6-51 Actuarial Director ID - AGONZALEZCBC W/PLT COUNT & AUTO [id number] 06:41:00 Test Item Value Reference Range Interpretation [...] (test code = 2801) RAPID INFLUENZA A&B [id number] 19:09:00 Test Item Value Reference Range Interpretation Comments RAPID INFLUENZA A AG (BEAKER) Negative Negative, Inconclusive (test code = 1622) RAPID INFLUENZA B AG (BEAKER) Negative Negative, Inconclusive (test code = 1623) TROPONIN [id number] 18:51:00 Test Item Value Reference Range Interpretation [...] failure, acidosis, acute neurological disease, and persistent tachyarrhythmia.Actuarial Director ID - JUSTINPREGNANCY SCREEN, [id number] 18:49:00 Test Item Value Reference Range Interpretation Comments TEST URINE (BEAKER) (test Negative code = 583) URINALYSIS W/ [id number] 18:49:00 Test Item Value Reference Range Interpretation [...] SOURCE(BEAKER) (test code = 2795) BASIC METABOLIC [id number] 18:44:00 Test Item Value Reference Range Interpretation [...] S NOT APPLICABLE FOR DIALYSIS PATIEN TS. Actuarial Director ID - GORDON, CHEST, 1 VIEW, NON [id number] 18:41:00Reason for exam:->COUGHReason for exam:->SHORTNESS OF BREATHReason [...] 10/12/2019 18:41:43 CBC W/PLT COUNT & AUTO [id number] 18:29:00 Test Item Value Reference Range Interpretation [...] PERCENT (BEAKER) (test code = 2801) CT, [id number] 16:47:00Reason for exam:->FEVERReason for exam:->LEG PAINIs the [...] Quigleyort Verified Date/Time: 02/15/2019 16:47:32 Reading Location: [address] Reading Room URINALYSIS W/ [id number] 15:41:00 Test Item Value Reference Range Interpretation [...] 1663) SOURCE(BEAKER) (test code = 2795) SCREEN, [id number] 15:29:00 Test Item Value Reference Range Interpretation Comments TEST URINE (BEAKER) (test Negative code = 583) COMPREHENSIVE METABOLIC [id number] 15:26:00 Test Item Value Reference Range Interpretation [...] S NOT APPLICABLE FOR DIALYSIS PATIEN TS. [id number] 15:26:00 Test Item Value Reference Range Interpretation Comments LIPASE (BEAKER) (test code = 749) 20 U/L 6-51 [id number] 15:17:00 Test Item Value Reference Range Interpretation Comments AMYLASE (BEAKER) (test 42 U/L 30-110 Speci men slightly code = 349) hemolyzed CBC W/PLT COUNT & AUTO [id number] 15:03:00 Test Item Value Reference Range Interpretation [...] = 2801) RAD, KNEE, COMPLETE (4 VIEWS), [id number] 23:20:00Reason for exam:->MOTOR VEHICLE CRASHReason for exam:->HIP [...] Friedman Verified Date/Time: 11/19/2018 23:20:49 Reading Location: [address] Body Reading Room RAD, KNEE, COMPLETE (4 VIEWS), [id number] 23:20:00Reason for exam:- >MOTOR VEHICLE CRASHReason for [...] Friedman Verified Date/Time: 11/19/2018 23:20:49 Reading Location: [facility] C[address] CT Body Reading Room RAD, HIP, 2 VIEWS, [id number] 23:06:00Reason for exam:->MOTOR VEHICLE CRASHReason for exam:->HIP PAINReason for exam:->ARM INJURYReason for exam:->SHOULDER INJURYFINAL REPORT Right hip series, 2 views Clinical Indication: Right Hip Pain Impression: No evidence of acute fracture or traumatic malalignment. Note: If occult injury is suspected,consider CT. Signed: Brian Garibay Verified Date/Time: 11/19/2018 23:06:27 Reading Location:[address] Reading Room CT, [id number] 22:44:00Reason for exam:->MOTOR VEHICLE CRASHReason for exam:->HIP [...] the abdomen and pelvis. Signed: Whit Alcantara MDReport Verified Date/Time: 11/19/2018 22:44:18 Reading Location: [address] Reading Room RAD, SHOULDER, COMPLETE (MIN 2 VIEWS), [id number] 22:41:00Reason for exam:->MOTOR VEHICLE CRASHReason for exam:->HIP PAINReason for exam:->ARM INJURYReason for exam:->SHOULDER INJURYFINAL REPORT Right shoulder series - 3 VIEWS Clinical Indication: Right shoulder pain following traumatic injury. Impression: No evidence of acute fracture or traumatic malalignment. Signed: Brian Garibay MDReport Verified Date/Time: 11/19/2018 22:41:16 Reading Location: [address] Reading Room URINALYSIS W/ [id number] 21:44:00 Test Item Value Reference Range Interpretation [...] 1663) SOURCE(BEAKER) (test code = 2795) SCREEN, [id number] 21:40:00 Test Item Value Reference Range Interpretation Comments TEST URINE (BEAKER) (test Negative code = 583) URINALYSIS W/ [id number] 21:41:00 Test Item Value Reference Range Interpretation [...] 1663) SOURCE(BEAKER) (test code = 2795) SCREEN, [id number] 21:37:00 Test Item Value Reference Range Interpretation Comments TEST URINE (BEAKER) (test Negative code = 583) RAPID INFLUENZA A&B [id number] 20:49:00 Test Item Value Reference Range Interpretation Comments RAPID INFLUENZA A AG (BEAKER) Negative Negative, Inconclusive (test code = 1622) RAPID INFLUENZA B AG (BEAKER) Negative Negative, Inconclusive (test code = 1623) CT, [id number] 08:31:00Reason for exam:->ABDOMINAL PAINReason for exam:->FEVERReason for [...] the abdomen and pelvis. Signed: Magy Barker Verified Date/Time: 07/31/2017 08:31:14 Reading Location: [facility] Diagnostic Imaging Reading Room - [place] [address] RAD, CHEST, 1 VIEW, NON [id number] 08:23:00Reason for exam:->ABDOMINAL PAINReason for exam:->FEVERReason for [...] Arellano Verified Date/Time: 07/31/2017 08:23:48 Reading Location: [address] Radiology Reading Room [id number] 08:07:00 Test Item Value Reference Range Interpretation Comments LIPASE (BEAKER) (test code = 749) 34 U/L 6-51 URINALYSIS W/ REFLEX URINE [id number] 08:06:00 Test Item Value Reference Range Interpretation [...] code = 1663) SOURCE(BEAKER) (test code = 0815) COMPREHENSIVE METABOLIC [id number] 08:06:00 Test Item Value Reference Range Interpretation [...] S NOT APPLICABLE FOR DIALYSIS PATIEN TS. [id number] 07:58:00 Test Item Value Reference Range Interpretation Comments AMYLASE (BEAKER) (test code = 349) 52 U/L 30-110 SCREEN, [id number] 07:52:00 Test Item Value Reference Range Interpretation Comments TEST URINE (BEAKER) (test Negative code = 583) CBC W/PLT COUNT & AUTO [id number] 07:48:00 Test Item Value Reference Range Interpretation [...] 0.00-0.20 (test code = 417) BASIC METABOLIC [id number] 21:32:00 Test Item Value Reference Range Interpretation [...] DIALYSIS PATIEN TS. LACTIC ACID, VENOUS, WHOLE [id number] 21:19:00 Test Item Value Reference Range Interpretation Comments LACTATE BLOOD VENOUS 0.9 mmol/L 0.5-2.2 Specime n slightly (2) (BEAKER) (test hemolyzed code = 2872) Effective 12/15/2015: Units/Reference Range ChangeNew: 0.5-2.2 mmol/L Previous: 5- 18 mg/dLCBC W/PLT COUNT & AUTO [id number] 21:07:00 Test Item Value Reference Range Interpretation [...] L 0.00-0.20 (test code = 417) SCREEN, [id number] 18:50:00 Test Item Value Reference Range Interpretation Comments TEST URINE (BEAKER) (test Negative code = 583) URINE [id number] 09:20:00 Test Item Value Reference Range Interpretation [...] = 480) CBC W/PLT COUNT & AUTO [id number] 16:52:00 Test Item Value Reference Range Interpretation [...] 0.00-0.20 (test code = 417) COMPREHENSIVE METABOLIC [id number] 16:28:00 Test Item Value Reference Range Interpretation [...] S NOT APPLICABLE FOR DIALYSIS PATIEN TS. [id number] 16:22:00 Test Item Value Reference Range Interpretation Comments LIPASE (BEAKER) (test code = 749) 26 U/L 6-51 URINALYSIS W/ REFLEX URINE [id number] 15:52:00 Test Item Value Reference Range Interpretation [...] 1663) SOURCE(BEAKER) (test code = 2795) SCREEN, [id number] 15:49:00 Test Item Value Reference Range Interpretation Comments TEST URINE (BEAKER) (test Negative code = 583) URINE AND [id number] 08:40:00 Test Item Value Reference Range Interpretation Comments UA Leuk Est (test code Trace *ABN*(02/13/16 3:40 = UA Leuk Est) AM) [facility] AND [id number] 08:40:00 Test Item Value Reference Range Interpretation Comments UA Nitrite (test code Negative (02/13/16 3:40 = UA Nitrite) AM) [facility] AND [id number] 08:40:00 Test Item Value Reference Range Interpretation Comments UA Urobilinogen (test code = UA 0.2 0.1-1.0 Urobilinogen) [facility] [id number] 08:40:00 Test Item Value Reference Range Interpretation Comments UA Ketones (test code Negative *NA*(02/13/16 = UA Ketones) 3:40 AM) [facility] AND [id number] 08:40:00 Test Item Value Reference Range Interpretation Comments UA Glucose (test code Negative (02/13/16 3:40 = UA Glucose) AM) [facility] AND [id number] 08:40:00 Test Item Value Reference Range Interpretation Comments UA Blood (test code = Large *ABN*(02/13/16 UA Blood) 3:40 AM) [facility] AND [id number] 08:40:00 Test Item Value Reference Range Interpretation Comments UA Bili (test code = Negative *NA*(02/13/16 UA Bili) 3:40 AM) [facility] AND [id number] 08:40:00 Test Item Value Reference Range Interpretation Comments UA Protein (test code = UA Protein) 30 mg/dL [facility] AND [id number] 08:40:00 Test Item Value Reference Range Interpretation Comments UA Spec Grav (test code = UA Spec 1.015 1 Grav) [facility] AND [id number] 08:40:00 Test Item Value Reference Range Interpretation Comments UA pH (test code = UA pH) 7.0 1 5.0-8.0 [facility] AND [id number] 08:40:00 Test Item Value Reference Range Interpretation Comments UA Color (test code = Red *ABN*(02/13/16 3:40 UA Color) AM) [facility] AND [id number] 08:40:00 Test Item Value Reference Range Interpretation Comments UA Turbidity (test code Bloody *ABN*(02/13/16 = UA Turbidity) 3:40 AM) [facility] AND [id number] 08:40:00 Test Item Value Reference Range Interpretation Comments UA Bacteria (test code = UA Occasional /HPF Bacteria) [facility] AND [id number] 08:40:00 Test Item Value Reference Range Interpretation Comments UA RBC (test Packed See_Comment [Automated mes shirley] code = UA RBC) *ABN*(02/13/16 3:40 The syst em which AM) generated this result transmitted ref erence range: <=2. The reference range was not used to int erpret this result as normal/abnormal . [facility] AND [id number] 08:40:00 Test Item Value Reference Range Interpretation Comments UA WBC (test code = UA WBC) 3-5 /HPF [facility] AND [id number] 08:40:00 Test Item Value Reference Range Interpretation Comments UA Sq Epi (test code = UA Sq Epi) Rare /LPF [facility] AND [id number] 08:40:00 Test Item Value Reference Range Interpretation Comments UA Leuk Est (test code Trace *ABN*(02/13/16 3:40 = UA Leuk Est) AM) [facility] AND [id number] 08:40:00 Test Item Value Reference Range Interpretation Comments UA Nitrite (test code Negative (02/13/16 3:40 = UA Nitrite) AM) [facility] AND [id number] 08:40:00 Test Item Value Reference Range Interpretation Comments UA Urobilinogen (test code = UA 0.2 0.1-1.0 Urobilinogen) [facility] AND [id number] 08:40:00 Test Item Value Reference Range Interpretation Comments UA Ketones (test code Negative *NA*(02/13/16 = UA Ketones) 3:40 AM) [facility] AND [id number] 08:40:00 Test Item Value Reference Range Interpretation Comments UA Glucose (test code Negative (02/13/16 3:40 = UA Glucose) AM) [facility] AND [id number] 08:40:00 Test Item Value Reference Range Interpretation Comments UA Blood (test code = Large *ABN*(02/13/16 UA Blood) 3:40 AM) [facility] AND [id number] 08:40:00 Test Item Value Reference Range Interpretation Comments UA Bili (test code = Negative *NA*(02/13/16 UA Bili) 3:40 AM) [facility] AND [id number] 08:40:00 Test Item Value Reference Range Interpretation Comments UA Protein (test code = UA Protein) 30 mg/dL [facility] AND [id number] 08:40:00 Test Item Value Reference Range Interpretation Comments UA Spec Grav (test code = UA Spec 1.015 1 Grav) [facility] AND [id number] 08:40:00 Test Item Value Reference Range Interpretation Comments UA pH (test code = UA pH) 7.0 1 5.0-8.0 [facility] AND [id number] 08:40:00 Test Item Value Reference Range Interpretation Comments UA Color (test code = Red *ABN*(02/13/16 3:40 UA Color) AM) [facility] AND [id number] 08:40:00 Test Item Value Reference Range Interpretation Comments UA Turbidity (test code Bloody *ABN*(02/13/16 = UA Turbidity) 3:40 AM) [facility] AND [id number] 08:40:00 Test Item Value Reference Range Interpretation Comments UA Bacteria (test code = UA Occasional /HPF Bacteria) [facility] AND [id number] 08:40:00 Test Item Value Reference Range Interpretation Comments UA RBC (test Packed See_Comment [Automated mes shirley] code = UA RBC) *ABN*(02/13/16 3:40 The syst em which AM) generated this result transmitted ref erence range: <=2. The reference range was not used to int erpret this result as normal/abnormal . [facility] AND [id number] 08:40:00 Test Item Value Reference Range Interpretation Comments UA WBC (test code = UA WBC) 3-5 /HPF [facility] AND [id number] 08:40:00 Test Item Value Reference Range Interpretation Comments UA Sq Epi (test code = UA Sq Epi) Rare /LPF [facility] AND [id number] 08:40:00 Test Item Value Reference Range Interpretation Comments UA Leuk Est (test code Trace *ABN*(02/13/16 3:40 = UA Leuk Est) AM) [facility] AND [id number] 08:40:00 Test Item Value Reference Range Interpretation Comments UA Nitrite (test code Negative (02/13/16 3:40 = UA Nitrite) AM) [facility] AND [id number] 08:40:00 Test Item Value Reference Range Interpretation Comments UA Urobilinogen (test code = UA 0.2 0.1-1.0 Urobilinogen) [facility] AND [id number] 08:40:00 Test Item Value Reference Range Interpretation Comments UA Ketones (test code Negative *NA*(02/13/16 = UA Ketones) 3:40 AM) [facility] AND [id number] 08:40:00 Test Item Value Reference Range Interpretation Comments UA Glucose (test code Negative (02/13/16 3:40 = UA Glucose) AM) [facility] AND [id number] 08:40:00 Test Item Value Reference Range Interpretation Comments UA Blood (test code = Large *ABN*(02/13/16 UA Blood) 3:40 AM) [facility] AND [id number] 08:40:00 Test Item Value Reference Range Interpretation Comments UA Bili (test code = Negative *NA*(02/13/16 UA Bili) 3:40 AM) [facility] AND [id number] 08:40:00 Test Item Value Reference Range Interpretation Comments UA Protein (test code = UA Protein) 30 mg/dL [facility] AND [id number] 08:40:00 Test Item Value Reference Range Interpretation Comments UA Spec Grav (test code = UA Spec 1.015 1 Grav) [facility] AND [id number] 08:40:00 Test Item Value Reference Range Interpretation Comments UA pH (test code = UA pH) 7.0 1 5.0-8.0 [facility] AND [id number] 08:40:00 Test Item Value Reference Range Interpretation Comments UA Color (test code = Red *ABN*(02/13/16 3:40 UA Color) AM) [facility] AND [id number] 08:40:00 Test Item Value Reference Range Interpretation Comments UA Turbidity (test code Bloody *ABN*(02/13/16 = UA Turbidity) 3:40 AM) [facility] AND [id number] 08:40:00 Test Item Value Reference Range Interpretation Comments UA Bacteria (test code = UA Occasional /HPF Bacteria) [facility] AND [id number] 08:40:00 Test Item Value Reference Range Interpretation Comments UA RBC (test Packed See_Comment [Automated mes shirley] code = UA RBC) *ABN*(02/13/16 3:40 The syst em which AM) generated this result transmitted ref erence range: <=2. The reference range was not used to int erpret this result as normal/abnormal . [facility] AND [id number] 08:40:00 Test Item Value Reference Range Interpretation Comments UA WBC (test code = UA WBC) 3-5 /HPF [facility] AND [id number] 08:40:00 Test Item Value Reference Range Interpretation Comments UA Sq Epi (test code = UA Sq Epi) Rare /LPF [facility] AND [id number] 08:40:00 Test Item Value Reference Range Interpretation Comments UA Leuk Est (test code Trace *ABN*(02/13/16 3:40 = UA Leuk Est) AM) [facility] AND [id number] 08:40:00 Test Item Value Reference Range Interpretation Comments UA Nitrite (test code Negative (02/13/16 3:40 = UA Nitrite) AM) [facility] AND [id number] 08:40:00 Test Item Value Reference Range Interpretation Comments UA Urobilinogen (test code = UA 0.2 0.1-1.0 Urobilinogen) [facility] AND [id number] 08:40:00 Test Item Value Reference Range Interpretation Comments UA Ketones (test code Negative *NA*(02/13/16 = UA Ketones) 3:40 AM) [facility] AND [id number] 08:40:00 Test Item Value Reference Range Interpretation Comments UA Glucose (test code Negative (02/13/16 3:40 = UA Glucose) AM) [facility] AND [id number] 08:40:00 Test Item Value Reference Range Interpretation Comments UA Blood (test code = Large *ABN*(02/13/16 UA Blood) 3:40 AM) [facility] AND [id number] 08:40:00 Test Item Value Reference Range Interpretation Comments UA Bili (test code = Negative *NA*(02/13/16 UA Bili) 3:40 AM) [facility] AND [id number] 08:40:00 Test Item Value Reference Range Interpretation Comments UA Protein (test code = UA Protein) 30 mg/dL [facility] AND [id number] 08:40:00 Test Item Value Reference Range Interpretation Comments UA Spec Grav (test code = UA Spec 1.015 1 Grav) [facility] AND [id number] 08:40:00 Test Item Value Reference Range Interpretation Comments UA pH (test code = UA pH) 7.0 1 5.0-8.0 [facility] AND [id number] 08:40:00 Test Item Value Reference Range Interpretation Comments UA Color (test code = Red *ABN*(02/13/16 3:40 UA Color) AM) [facility] AND [id number] 08:40:00 Test Item Value Reference Range Interpretation Comments UA Turbidity (test code Bloody *ABN*(02/13/16 = UA Turbidity) 3:40 AM) [facility] AND [id number] 08:40:00 Test Item Value Reference Range Interpretation Comments UA Bacteria (test code = UA Occasional /HPF Bacteria) [facility] AND [id number] 08:40:00 Test Item Value Reference Range Interpretation Comments UA RBC (test Packed See_Comment [Automated mes shirley] code = UA RBC) *ABN*(02/13/16 3:40 The syst em which AM) generated this result transmitted ref erence range: <=2. The reference range was not used to int erpret this result as normal/abnormal . [facility] AND [id number] 08:40:00 Test Item Value Reference Range Interpretation Comments UA WBC (test code = UA WBC) 3-5 /HPF [facility] AND [id number] 08:40:00 Test Item Value Reference Range Interpretation Comments UA Sq Epi (test code = UA Sq Epi) Rare /LPF [facility] AND [id number] 08:40:00 Test Item Value Reference Range Interpretation Comments UA Leuk Est (test code Trace *ABN*(02/13/16 3:40 = UA Leuk Est) AM) [facility] AND [id number] 08:40:00 Test Item Value Reference Range Interpretation Comments UA Nitrite (test code Negative (02/13/16 3:40 = UA Nitrite) AM) [facility] AND [id number] 08:40:00 Test Item Value Reference Range Interpretation Comments UA Urobilinogen (test code = UA 0.2 0.1-1.0 Urobilinogen) [facility] AND [id number] 08:40:00 Test Item Value Reference Range Interpretation Comments UA Ketones (test code Negative *NA*(02/13/16 = UA Ketones) 3:40 AM) [facility] AND [id number] 08:40:00 Test Item Value Reference Range Interpretation Comments UA Glucose (test code Negative (02/13/16 3:40 = UA Glucose) AM) [facility] AND [id number] 08:40:00 Test Item Value Reference Range Interpretation Comments UA Blood (test code = Large *ABN*(02/13/16 UA Blood) 3:40 AM) [facility] AND [id number] 08:40:00 Test Item Value Reference Range Interpretation Comments UA Bili (test code = Negative *NA*(02/13/16 UA Bili) 3:40 AM) [facility] AND [id number] 08:40:00 Test Item Value Reference Range Interpretation Comments UA Protein (test code = UA Protein) 30 mg/dL [facility] AND [id number] 08:40:00 Test Item Value Reference Range Interpretation Comments UA Spec Grav (test code = UA Spec 1.015 1 Grav) [facility] AND [id number] 08:40:00 Test Item Value Reference Range Interpretation Comments UA pH (test code = UA pH) 7.0 1 5.0-8.0 [facility] AND [id number] 08:40:00 Test Item Value Reference Range Interpretation Comments UA Color (test code = Red *ABN*(02/13/16 3:40 UA Color) AM) [facility] AND [id number] 08:40:00 Test Item Value Reference Range Interpretation Comments UA Turbidity (test code Bloody *ABN*(02/13/16 = UA Turbidity) 3:40 AM) [facility] AND [id number] 08:40:00 Test Item Value Reference Range Interpretation Comments UA Bacteria (test code = UA Occasional /HPF Bacteria) [facility] AND [id number] 08:40:00 Test Item Value Reference Range Interpretation Comments UA RBC (test Packed See_Comment [Automated mes shirley] code = UA RBC) *ABN*(02/13/16 3:40 The syst em which AM) generated this result transmitted ref erence range: <=2. The reference range was not used to int erpret this result as normal/abnormal . [facility] AND [id number] 08:40:00 Test Item Value Reference Range Interpretation Comments UA WBC (test code = UA WBC) 3-5 /HPF [facility] AND [id number] 08:40:00 Test Item Value Reference Range Interpretation Comments UA Sq Epi (test code = UA Sq Epi) Rare /LPF [facility] AND [id number] 08:40:00 Test Item Value Reference Range Interpretation Comments UA Leuk Est (test code Trace *ABN*(02/13/16 3:40 = UA Leuk Est) AM) [facility] AND [id number] 08:40:00 Test Item Value Reference Range Interpretation Comments UA Nitrite (test code Negative (02/13/16 3:40 = UA Nitrite) AM) [facility] AND [id number] 08:40:00 Test Item Value Reference Range Interpretation Comments UA Urobilinogen (test code = UA 0.2 0.1-1.0 Urobilinogen) [facility] AND [id number] 08:40:00 Test Item Value Reference Range Interpretation Comments UA Ketones (test code Negative *NA*(02/13/16 = UA Ketones) 3:40 AM) [facility] AND [id number] 08:40:00 Test Item Value Reference Range Interpretation Comments UA Glucose (test code Negative (02/13/16 3:40 = UA Glucose) AM) [facility] AND [id number] 08:40:00 Test Item Value Reference Range Interpretation Comments UA Blood (test code = Large *ABN*(02/13/16 UA Blood) 3:40 AM) [facility] AND [id number] 08:40:00 Test Item Value Reference Range Interpretation Comments UA Bili (test code = Negative *NA*(02/13/16 UA Bili) 3:40 AM) [facility] AND [id number] 08:40:00 Test Item Value Reference Range Interpretation Comments UA Protein (test code = UA Protein) 30 mg/dL [facility] AND [id number] 08:40:00 Test Item Value Reference Range Interpretation Comments UA Spec Grav (test code = UA Spec 1.015 1 Grav) [facility] AND [id number] 08:40:00 Test Item Value Reference Range Interpretation Comments UA pH (test code = UA pH) 7.0 1 5.0-8.0 [facility] AND [id number] 08:40:00 Test Item Value Reference Range Interpretation Comments UA Color (test code = Red *ABN*(02/13/16 3:40 UA Color) AM) [facility] AND [id number] 08:40:00 Test Item Value Reference Range Interpretation Comments UA Turbidity (test code Bloody *ABN*(02/13/16 = UA Turbidity) 3:40 AM) [facility] AND [id number] 08:40:00 Test Item Value Reference Range Interpretation Comments UA Bacteria (test code = UA Occasional /HPF Bacteria) [facility] AND [id number] 08:40:00 Test Item Value Reference Range Interpretation Comments UA RBC (test Packed See_Comment [Automated mes shirley] code = UA RBC) *ABN*(02/13/16 3:40 The syst em which AM) generated this result transmitted ref erence range: <=2. The reference range was not used to int erpret this result as normal/abnormal . [facility] AND [id number] 08:40:00 Test Item Value Reference Range Interpretation Comments UA WBC (test code = UA WBC) 3-5 /HPF [facility] AND [id number] 08:40:00 Test Item Value Reference Range Interpretation Comments UA Sq Epi (test code = UA Sq Epi) Rare /LPF [facility] AND [id number] 08:40:00 Test Item Value Reference Range Interpretation Comments UA Leuk Est (test code Trace *ABN*(02/13/16 3:40 = UA Leuk Est) AM) [facility] AND [id number] 08:40:00 Test Item Value Reference Range Interpretation Comments UA Nitrite (test code Negative (02/13/16 3:40 = UA Nitrite) AM) [facility] AND [id number] 08:40:00 Test Item Value Reference Range Interpretation Comments UA Urobilinogen (test code = UA 0.2 0.1-1.0 Urobilinogen) [facility] AND [id number] 08:40:00 Test Item Value Reference Range Interpretation Comments UA Ketones (test code Negative *NA*(02/13/16 = UA Ketones) 3:40 AM) [facility] AND [id number] 08:40:00 Test Item Value Reference Range Interpretation Comments UA Glucose (test code Negative (02/13/16 3:40 = UA Glucose) AM) [facility] AND [id number] 08:40:00 Test Item Value Reference Range Interpretation Comments UA Blood (test code = Large *ABN*(02/13/16 UA Blood) 3:40 AM) [facility] AND [id number] 08:40:00 Test Item Value Reference Range Interpretation Comments UA Bili (test code = Negative *NA*(02/13/16 UA Bili) 3:40 AM) [facility] AND [id number] 08:40:00 Test Item Value Reference Range Interpretation Comments UA Protein (test code = UA Protein) 30 mg/dL [facility] AND [id number] 08:40:00 Test Item Value Reference Range Interpretation Comments UA Spec Grav (test code = UA Spec 1.015 1 Grav) [facility] AND [id number] 08:40:00 Test Item Value Reference Range Interpretation Comments UA pH (test code = UA pH) 7.0 1 5.0-8.0 [facility] AND [id number] 08:40:00 Test Item Value Reference Range Interpretation Comments UA Color (test code = Red *ABN*(02/13/16 3:40 UA Color) AM) [facility] AND [id number] 08:40:00 Test Item Value Reference Range Interpretation Comments UA Turbidity (test code Bloody *ABN*(02/13/16 = UA Turbidity) 3:40 AM) [facility] AND [id number] 08:40:00 Test Item Value Reference Range Interpretation Comments UA Bacteria (test code = UA Occasional /HPF Bacteria) [facility] AND [id number] 08:40:00 Test Item Value Reference Range Interpretation Comments UA RBC (test Packed See_Comment [Automated mes shirley] code = UA RBC) *ABN*(02/13/16 3:40 The syst em which AM) generated this result transmitted ref erence range: <=2. The reference range was not used to int erpret this result as normal/abnormal . [facility] AND [id number] 08:40:00 Test Item Value Reference Range Interpretation Comments UA WBC (test code = UA WBC) 3-5 /HPF [facility] AND [id number] 08:40:00 Test Item Value Reference Range Interpretation Comments UA Sq Epi (test code = UA Sq Epi) Rare /LPF [facility] AND [id number] 08:40:00 Test Item Value Reference Range Interpretation Comments UA Leuk Est (test code Trace *ABN*(02/13/16 3:40 = UA Leuk Est) AM) [facility] AND [id number] 08:40:00 Test Item Value Reference Range Interpretation Comments UA Nitrite (test code Negative (02/13/16 3:40 = UA Nitrite) AM) [facility] AND [id number] 08:40:00 Test Item Value Reference Range Interpretation Comments UA Urobilinogen (test code = UA 0.2 0.1-1.0 Urobilinogen) [facility] AND [id number] 08:40:00 Test Item Value Reference Range Interpretation Comments UA Ketones (test code Negative *NA*(02/13/16 = UA Ketones) 3:40 AM) [facility] AND [id number] 08:40:00 Test Item Value Reference Range Interpretation Comments UA Glucose (test code Negative (02/13/16 3:40 = UA Glucose) AM) [facility] AND [id number] 08:40:00 Test Item Value Reference Range Interpretation Comments UA Blood (test code = Large *ABN*(02/13/16 UA Blood) 3:40 AM) [facility] AND [id number] 08:40:00 Test Item Value Reference Range Interpretation Comments UA Bili (test code = Negative *NA*(02/13/16 UA Bili) 3:40 AM) [facility] AND [id number] 08:40:00 Test Item Value Reference Range Interpretation Comments UA Protein (test code = UA Protein) 30 mg/dL [facility] AND [id number] 08:40:00 Test Item Value Reference Range Interpretation Comments UA Spec Grav (test code = UA Spec 1.015 1 Grav) [facility] AND [id number] 08:40:00 Test Item Value Reference Range Interpretation Comments UA pH (test code = UA pH) 7.0 1 5.0-8.0 [facility] AND [id number] 08:40:00 Test Item Value Reference Range Interpretation Comments UA Color (test code = Red *ABN*(02/13/16 3:40 UA Color) AM) [facility] AND [id number] 08:40:00 Test Item Value Reference Range Interpretation Comments UA Turbidity (test code Bloody *ABN*(02/13/16 = UA Turbidity) 3:40 AM) [facility] AND [id number] 08:40:00 Test Item Value Reference Range Interpretation Comments UA Bacteria (test code = UA Occasional /HPF Bacteria) [facility] AND [id number] 08:40:00 Test Item Value Reference Range Interpretation Comments UA RBC (test Packed See_Comment [Automated mes shirley] code = UA RBC) *ABN*(02/13/16 3:40 The syst em which AM) generated this result transmitted ref erence range: <=2. The reference range was not used to int erpret this result as normal/abnormal . [facility] AND [id number] 08:40:00 Test Item Value Reference Range Interpretation Comments UA WBC (test code = UA WBC) 3-5 /HPF [facility] AND [id number] 08:40:00 Test Item Value Reference Range Interpretation Comments UA Sq Epi (test code = UA Sq Epi) Rare /LPF [facility] AND [id number] 08:40:00 Test Item Value Reference Range Interpretation Comments UA Leuk Est (test code Trace *ABN*(02/13/16 3:40 = UA Leuk Est) AM) [facility] AND [id number] 08:40:00 Test Item Value Reference Range Interpretation Comments UA Nitrite (test code Negative (02/13/16 3:40 = UA Nitrite) AM) [facility] AND [id number] 08:40:00 Test Item Value Reference Range Interpretation Comments UA Urobilinogen (test code = UA 0.2 0.1-1.0 Urobilinogen) [facility] AND [id number] 08:40:00 Test Item Value Reference Range Interpretation Comments UA Ketones (test code Negative *NA*(02/13/16 = UA Ketones) 3:40 AM) [facility] AND [id number] 08:40:00 Test Item Value Reference Range Interpretation Comments UA Glucose (test code Negative (02/13/16 3:40 = UA Glucose) AM) [facility] AND [id number] 08:40:00 Test Item Value Reference Range Interpretation Comments UA Blood (test code = Large *ABN*(02/13/16 UA Blood) 3:40 AM) [facility] AND [id number] 08:40:00 Test Item Value Reference Range Interpretation Comments UA Bili (test code = Negative *NA*(02/13/16 UA Bili) 3:40 AM) [facility] AND [id number] 08:40:00 Test Item Value Reference Range Interpretation Comments UA Protein (test code = UA Protein) 30 mg/dL [facility] AND [id number] 08:40:00 Test Item Value Reference Range Interpretation Comments UA Spec Grav (test code = UA Spec 1.015 1 Grav) [facility] AND [id number] 08:40:00 Test Item Value Reference Range Interpretation Comments UA pH (test code = UA pH) 7.0 1 5.0-8.0 [facility] AND [id number] 08:40:00 Test Item Value Reference Range Interpretation Comments UA Color (test code = Red *ABN*(02/13/16 3:40 UA Color) AM) [facility] AND [id number] 08:40:00 Test Item Value Reference Range Interpretation Comments UA Turbidity (test code Bloody *ABN*(02/13/16 = UA Turbidity) 3:40 AM) [facility] AND [id number] 08:40:00 Test Item Value Reference Range Interpretation Comments UA Bacteria (test code = UA Occasional /HPF Bacteria) [facility] AND [id number] 08:40:00 Test Item Value Reference Range Interpretation Comments UA RBC (test Packed See_Comment [Automated mes shirley] code = UA RBC) *ABN*(02/13/16 3:40 The syst em which AM) generated this result transmitted ref erence range: <=2. The reference range was not used to int erpret this result as normal/abnormal . [facility] AND [id number] 08:40:00 Test Item Value Reference Range Interpretation Comments UA WBC (test code = UA WBC) 3-5 /HPF [facility] AND [id number] 08:40:00 Test Item Value Reference Range Interpretation Comments UA Sq Epi (test code = UA Sq Epi) Rare /LPF [facility] AND [id number] 08:40:00 Test Item Value Reference Range Interpretation Comments UA Leuk Est (test code Trace *ABN*(02/13/16 3:40 = UA Leuk Est) AM) [facility] AND [id number] 08:40:00 Test Item Value Reference Range Interpretation Comments UA Nitrite (test code Negative (02/13/16 3:40 = UA Nitrite) AM) [facility] AND [id number] 08:40:00 Test Item Value Reference Range Interpretation Comments UA Urobilinogen (test code = UA 0.2 0.1-1.0 Urobilinogen) [facility] AND [id number] 08:40:00 Test Item Value Reference Range Interpretation Comments UA Ketones (test code Negative *NA*(02/13/16 = UA Ketones) 3:40 AM) [facility] AND [id number] 08:40:00 Test Item Value Reference Range Interpretation Comments UA Glucose (test code Negative (02/13/16 3:40 = UA Glucose) AM) [facility] AND [id number] 08:40:00 Test Item Value Reference Range Interpretation Comments UA Blood (test code = Large *ABN*(02/13/16 UA Blood) 3:40 AM) [facility] AND [id number] 08:40:00 Test Item Value Reference Range Interpretation Comments UA Bili (test code = Negative *NA*(02/13/16 UA Bili) 3:40 AM) [facility] AND [id number] 08:40:00 Test Item Value Reference Range Interpretation Comments UA Protein (test code = UA Protein) 30 mg/dL [facility] AND [id number] 08:40:00 Test Item Value Reference Range Interpretation Comments UA Spec Grav (test code = UA Spec 1.015 1 Grav) [facility] AND [id number] 08:40:00 Test Item Value Reference Range Interpretation Comments UA pH (test code = UA pH) 7.0 1 5.0-8.0 [facility] AND [id number] 08:40:00 Test Item Value Reference Range Interpretation Comments UA Color (test code = Red *ABN*(02/13/16 3:40 UA Color) AM) [facility] AND [id number] 08:40:00 Test Item Value Reference Range Interpretation Comments UA Turbidity (test code Bloody *ABN*(02/13/16 = UA Turbidity) 3:40 AM) [facility] AND [id number] 08:40:00 Test Item Value Reference Range Interpretation Comments UA Bacteria (test code = UA Occasional /HPF Bacteria) [facility] AND [id number] 08:40:00 Test Item Value Reference Range Interpretation Comments UA RBC (test Packed See_Comment [Automated mes shirley] code = UA RBC) *ABN*(02/13/16 3:40 The syst em which AM) generated this result transmitted ref erence range: <=2. The reference range was not used to int erpret this result as normal/abnormal . [facility] AND [id number] 08:40:00 Test Item Value Reference Range Interpretation Comments UA WBC (test code = UA WBC) 3-5 /HPF [facility] AND [id number] 08:40:00 Test Item Value Reference Range Interpretation Comments UA Sq Epi (test code = UA Sq Epi) Rare /LPF [facility] AND [id number] 08:40:00 Test Item Value Reference Range Interpretation Comments UA Leuk Est (test code Trace *ABN*(02/13/16 3:40 = UA Leuk Est) AM) [facility] AND [id number] 08:40:00 Test Item Value Reference Range Interpretation Comments UA Nitrite (test code Negative (02/13/16 3:40 = UA Nitrite) AM) [facility] AND [id number] 08:40:00 Test Item Value Reference Range Interpretation Comments UA Urobilinogen (test code = UA 0.2 0.1-1.0 Urobilinogen) [facility] AND [id number] 08:40:00 Test Item Value Reference Range Interpretation Comments UA Ketones (test code Negative *NA*(02/13/16 = UA Ketones) 3:40 AM) [facility] AND [id number] 08:40:00 Test Item Value Reference Range Interpretation Comments UA Glucose (test code Negative (02/13/16 3:40 = UA Glucose) AM) [facility] AND [id number] 08:40:00 Test Item Value Reference Range Interpretation Comments UA Blood (test code = Large *ABN*(02/13/16 UA Blood) 3:40 AM) [facility] AND [id number] 08:40:00 Test Item Value Reference Range Interpretation Comments UA Bili (test code = Negative *NA*(02/13/16 UA Bili) 3:40 AM) [facility] AND [id number] 08:40:00 Test Item Value Reference Range Interpretation Comments UA Protein (test code = UA Protein) 30 mg/dL [facility] [id number] 08:40:00 Test Item Value Reference Range Interpretation Comments UA Spec Grav (test code = UA Spec 1.015 1 Grav) [facility] AND [id number] 08:40:00 Test Item Value Reference Range Interpretation Comments UA pH (test code = UA pH) 7.0 1 5.0-8.0 [facility] AND [id number] 08:40:00 Test Item Value Reference Range Interpretation Comments UA Color (test code = Red *ABN*(02/13/16 3:40 UA Color) AM) [facility] AND [id number] 08:40:00 Test Item Value Reference Range Interpretation Comments UA Turbidity (test code Bloody *ABN*(02/13/16 = UA Turbidity) 3:40 AM) [facility] AND [id number] 08:40:00 Test Item Value Reference Range Interpretation Comments UA Bacteria (test code = UA Occasional /HPF Bacteria) [facility] AND [id number] 08:40:00 Test Item Value Reference Range Interpretation Comments UA RBC (test Packed See_Comment [Automated mes shirley] code = UA RBC) *ABN*(02/13/16 3:40 The syst em which AM) generated this result transmitted ref erence range: <=2. The reference range was not used to int erpret this result as normal/abnormal . [facility] AND [id number] 08:40:00 Test Item Value Reference Range Interpretation Comments UA WBC (test code = UA WBC) 3-5 /HPF [facility] AND [id number] 08:40:00 Test Item Value Reference Range Interpretation Comments UA Sq Epi (test code = UA Sq Epi) Rare /LPF [facility] AND [id number] 08:40:00 Test Item Value Reference Range Interpretation Comments UA Leuk Est (test code Trace *ABN*(02/13/16 3:40 = UA Leuk Est) AM) [facility] AND [id number] 08:40:00 Test Item Value Reference Range Interpretation Comments UA Nitrite (test code Negative (02/13/16 3:40 = UA Nitrite) AM) [facility] AND [id number] 08:40:00 Test Item Value Reference Range Interpretation Comments UA Urobilinogen (test code = UA 0.2 0.1-1.0 Urobilinogen) [facility] AND [id number] 08:40:00 Test Item Value Reference Range Interpretation Comments UA Ketones (test code Negative *NA*(02/13/16 = UA Ketones) 3:40 AM) [facility] AND [id number] 08:40:00 Test Item Value Reference Range Interpretation Comments UA Glucose (test code Negative (02/13/16 3:40 = UA Glucose) AM) [facility] AND [id number] 08:40:00 Test Item Value Reference Range Interpretation Comments UA Blood (test code = Large *ABN*(02/13/16 UA Blood) 3:40 AM) [facility] AND [id number] 08:40:00 Test Item Value Reference Range Interpretation Comments UA Bili (test code = Negative *NA*(02/13/16 UA Bili) 3:40 AM) [facility] AND [id number] 08:40:00 Test Item Value Reference Range Interpretation Comments UA Protein (test code = UA Protein) 30 mg/dL [facility] AND [id number] 08:40:00 Test Item Value Reference Range Interpretation Comments UA Spec Grav (test code = UA Spec 1.015 1 Grav) [facility] AND [id number] 08:40:00 Test Item Value Reference Range Interpretation Comments UA pH (test code = UA pH) 7.0 1 5.0-8.0 [facility] AND [id number] 08:40:00 Test Item Value Reference Range Interpretation Comments UA Color (test code = Red *ABN*(02/13/16 3:40 UA Color) AM) [facility] AND [id number] 08:40:00 Test Item Value Reference Range Interpretation Comments UA Turbidity (test code Bloody *ABN*(02/13/16 = UA Turbidity) 3:40 AM) [facility] AND [id number] 08:40:00 Test Item Value Reference Range Interpretation Comments UA Bacteria (test code = UA Occasional /HPF Bacteria) [facility] AND [id number] 08:40:00 Test Item Value Reference Range Interpretation Comments UA RBC (test Packed See_Comment [Automated mes shirley] code = UA RBC) *ABN*(02/13/16 3:40 The syst em which AM) generated this result transmitted ref erence range: <=2. The reference range was not used to int erpret this result as normal/abnormal . [facility] AND [id number] 08:40:00 Test Item Value Reference Range Interpretation Comments UA WBC (test code = UA WBC) 3-5 /HPF [facility] AND [id number] 08:40:00 Test Item Value Reference Range Interpretation Comments UA Sq Epi (test code = UA Sq Epi) Rare /LPF [facility] AND [id number] 08:40:00 Test Item Value Reference Range Interpretation Comments UA Leuk Est (test code Trace *ABN*(02/13/16 3:40 = UA Leuk Est) AM) [facility] AND [id number] 08:40:00 Test Item Value Reference Range Interpretation Comments UA Nitrite (test code Negative (02/13/16 3:40 = UA Nitrite) AM) [facility] AND [id number] 08:40:00 Test Item Value Reference Range Interpretation Comments UA Urobilinogen (test code = UA 0.2 0.1-1.0 Urobilinogen) [facility] AND [id number] 08:40:00 Test Item Value Reference Range Interpretation Comments UA Ketones (test code Negative *NA*(02/13/16 = UA Ketones) 3:40 AM) [facility] AND [id number] 08:40:00 Test Item Value Reference Range Interpretation Comments UA Glucose (test code Negative (02/13/16 3:40 = UA Glucose) AM) [facility] AND [id number] 08:40:00 Test Item Value Reference Range Interpretation Comments UA Blood (test code = Large *ABN*(02/13/16 UA Blood) 3:40 AM) [facility] AND [id number] 08:40:00 Test Item Value Reference Range Interpretation Comments UA Bili (test code = Negative *NA*(02/13/16 UA Bili) 3:40 AM) [facility] AND [id number] 08:40:00 Test Item Value Reference Range Interpretation Comments UA Protein (test code = UA Protein) 30 mg/dL [facility] AND [id number] 08:40:00 Test Item Value Reference Range Interpretation Comments UA Spec Grav (test code = UA Spec 1.015 1 Grav) [facility] AND [id number] 08:40:00 Test Item Value Reference Range Interpretation Comments UA pH (test code = UA pH) 7.0 1 5.0-8.0 [facility] AND [id number] 08:40:00 Test Item Value Reference Range Interpretation Comments UA Color (test code = Red *ABN*(02/13/16 3:40 UA Color) AM) [facility] AND [id number] 08:40:00 Test Item Value Reference Range Interpretation Comments UA Turbidity (test code Bloody *ABN*(02/13/16 = UA Turbidity) 3:40 AM) [facility] AND [id number] 08:40:00 Test Item Value Reference Range Interpretation Comments UA Bacteria (test code = UA Occasional /HPF Bacteria) [facility] AND [id number] 08:40:00 Test Item Value Reference Range Interpretation Comments UA RBC (test Packed See_Comment [Automated mes shirley] code = UA RBC) *ABN*(02/13/16 3:40 The syst em which AM) generated this result transmitted ref erence range: <=2. The reference range was not used to int erpret this result as normal/abnormal . [facility] AND [id number] 08:40:00 Test Item Value Reference Range Interpretation Comments UA WBC (test code = UA WBC) 3-5 /HPF [facility] AND [id number] 08:40:00 Test Item Value Reference Range Interpretation Comments UA Sq Epi (test code = UA Sq Epi) Rare /LPF [facility] AND [id number] 08:40:00 Test Item Value Reference Range Interpretation Comments UA Leuk Est (test code Trace *ABN*(02/13/16 3:40 = UA Leuk Est) AM) [facility] AND [id number] 08:40:00 Test Item Value Reference Range Interpretation Comments UA Nitrite (test code Negative (02/13/16 3:40 = UA Nitrite) AM) [facility] AND [id number] 08:40:00 Test Item Value Reference Range Interpretation Comments UA Urobilinogen (test code = UA 0.2 0.1-1.0 Urobilinogen) [facility] AND [id number] 08:40:00 Test Item Value Reference Range Interpretation Comments UA Ketones (test code Negative *NA*(02/13/16 = UA Ketones) 3:40 AM) [facility] AND [id number] 08:40:00 Test Item Value Reference Range Interpretation Comments UA Glucose (test code Negative (02/13/16 3:40 = UA Glucose) AM) [facility] AND [id number] 08:40:00 Test Item Value Reference Range Interpretation Comments UA Blood (test code = Large *ABN*(02/13/16 UA Blood) 3:40 AM) [facility] AND [id number] 08:40:00 Test Item Value Reference Range Interpretation Comments UA Bili (test code = Negative *NA*(02/13/16 UA Bili) 3:40 AM) [facility] AND [id number] 08:40:00 Test Item Value Reference Range Interpretation Comments UA Protein (test code = UA Protein) 30 mg/dL [facility] AND [id number] 08:40:00 Test Item Value Reference Range Interpretation Comments UA Spec Grav (test code = UA Spec 1.015 1 Grav) [facility] AND [id number] 08:40:00 Test Item Value Reference Range Interpretation Comments UA pH (test code = UA pH) 7.0 1 5.0-8.0 [facility] AND [id number] 08:40:00 Test Item Value Reference Range Interpretation Comments UA Color (test code = Red *ABN*(02/13/16 3:40 UA Color) AM) [facility] AND [id number] 08:40:00 Test Item Value Reference Range Interpretation Comments UA Turbidity (test code Bloody *ABN*(02/13/16 = UA Turbidity) 3:40 AM) [facility] AND [id number] 08:40:00 Test Item Value Reference Range Interpretation Comments UA Bacteria (test code = UA Occasional /HPF Bacteria) [facility] AND [id number] 08:40:00 Test Item Value Reference Range Interpretation Comments UA RBC (test Packed See_Comment [Automated mes shirley] code = UA RBC) *ABN*(02/13/16 3:40 The syst em which AM) generated this result transmitted ref erence range: <=2. The reference range was not used to int erpret this result as normal/abnormal . [facility] AND [id number] 08:40:00 Test Item Value Reference Range Interpretation Comments UA WBC (test code = UA WBC) 3-5 /HPF [facility] AND [id number] 08:40:00 Test Item Value Reference Range Interpretation Comments UA Sq Epi (test code = UA Sq Epi) Rare /LPF [facility] AND [id number] 08:40:00 Test Item Value Reference Range Interpretation Comments UA Leuk Est (test code Trace *ABN*(02/13/16 3:40 = UA Leuk Est) AM) [facility] AND [id number] 08:40:00 Test Item Value Reference Range Interpretation Comments UA Nitrite (test code Negative (02/13/16 3:40 = UA Nitrite) AM) [facility] AND [id number] 08:40:00 Test Item Value Reference Range Interpretation Comments UA Urobilinogen (test code = UA 0.2 0.1-1.0 Urobilinogen) [facility] AND [id number] 08:40:00 Test Item Value Reference Range Interpretation Comments UA Ketones (test code Negative *NA*(02/13/16 = UA Ketones) 3:40 AM) [facility] AND [id number] 08:40:00 Test Item Value Reference Range Interpretation Comments UA Glucose (test code Negative (02/13/16 3:40 = UA Glucose) AM) [facility] AND [id number] 08:40:00 Test Item Value Reference Range Interpretation Comments UA Blood (test code = Large *ABN*(02/13/16 UA Blood) 3:40 AM) [facility] [id number] 08:40:00 Test Item Value Reference Range Interpretation Comments UA Bili (test code = Negative *NA*(02/13/16 UA Bili) 3:40 AM) [facility] [id number] 08:40:00 Test Item Value Reference Range Interpretation Comments UA Protein (test code = UA Protein) 30 mg/dL [facility] [id number] 08:40:00 Test Item Value Reference Range Interpretation Comments UA Spec Grav (test code = UA Spec 1.015 1 Grav) [facility] [id number] 08:40:00 Test Item Value Reference Range Interpretation Comments UA pH (test code = UA pH) 7.0 1 5.0-8.0 [facility] AND [id number] 08:40:00 Test Item Value Reference Range Interpretation Comments UA Color (test code = Red *ABN*(02/13/16 3:40 UA Color) AM) [facility] AND [id number] 08:40:00 Test Item Value Reference Range Interpretation Comments UA Turbidity (test code Bloody *ABN*(02/13/16 = UA Turbidity) 3:40 AM) [facility] AND [id number] 08:40:00 Test Item Value Reference Range Interpretation Comments UA Bacteria (test code = UA Occasional /HPF Bacteria) [facility] AND [id number] 08:40:00 Test Item Value Reference Range Interpretation Comments UA RBC (test code = UA Packed *ABN*(02/13/16 <=2 RBC) 3:40 AM) [facility] [id number] 08:40:00 Test Item Value Reference Range Interpretation Comments UA WBC (test code = UA WBC) 3-5 /HPF [facility] AND [id number] 08:40:00 Test Item Value Reference Range Interpretation Comments UA Sq Epi (test code = UA Sq Epi) Rare /LPF [facility] AND [id number] 08:40:00 Test Item Value Reference Range Interpretation Comments UA Leuk Est (test code Trace *ABN*(02/13/16 3:40 = UA Leuk Est) AM) [facility] [id number] 08:40:00 Test Item Value Reference Range Interpretation Comments UA Nitrite (test code Negative (02/13/16 3:40 = UA Nitrite) AM) [facility] AND [id number] 08:40:00 Test Item Value Reference Range Interpretation Comments UA Urobilinogen (test code = UA 0.2 0.1-1.0 Urobilinogen) [facility] AND [id number] 08:40:00 Test Item Value Reference Range Interpretation Comments UA Ketones (test code Negative *NA*(02/13/16 = UA Ketones) 3:40 AM) [facility] AND [id number] 08:40:00 Test Item Value Reference Range Interpretation Comments UA Glucose (test code Negative (02/13/16 3:40 = UA Glucose) AM) [facility] AND [id number] 08:40:00 Test Item Value Reference Range Interpretation Comments UA Blood (test code = Large *ABN*(02/13/16 UA Blood) 3:40 AM) [facility] AND [id number] 08:40:00 Test Item Value Reference Range Interpretation Comments UA Bili (test code = Negative *NA*(02/13/16 UA Bili) 3:40 AM) [facility] AND [id number] 08:40:00 Test Item Value Reference Range Interpretation Comments UA Protein (test code = UA Protein) 30 mg/dL [facility] AND [id number] 08:40:00 Test Item Value Reference Range Interpretation Comments UA Spec Grav (test code = UA Spec 1.015 1 Grav) [facility] AND [id number] 08:40:00 Test Item Value Reference Range Interpretation Comments UA pH (test code = UA pH) 7.0 1 5.0-8.0 [facility] AND [id number] 08:40:00 Test Item Value Reference Range Interpretation Comments UA Color (test code = Red *ABN*(02/13/16 3:40 UA Color) AM) [facility] AND [id number] 08:40:00 Test Item Value Reference Range Interpretation Comments UA Turbidity (test code Bloody *ABN*(02/13/16 = UA Turbidity) 3:40 AM) [facility] AND [id number] 08:40:00 Test Item Value Reference Range Interpretation Comments UA Bacteria (test code = UA Occasional /HPF Bacteria) [facility] AND [id number] 08:40:00 Test Item Value Reference Range Interpretation Comments UA RBC (test Packed See_Comment [Automated mes shirley] code = UA RBC) *ABN*(02/13/16 3:40 The syst em which AM) generated this result transmitted ref erence range: <=2. The reference range was not used to int erpret this result as normal/abnormal . [facility] AND [id number] 08:40:00 Test Item Value Reference Range Interpretation Comments UA WBC (test code = UA WBC) 3-5 /HPF [facility] AND [id number] 08:40:00 Test Item Value Reference Range Interpretation Comments UA Sq Epi (test code = UA Sq Epi) Rare /LPF [facility] AND [id number] 08:40:00 Test Item Value Reference Range Interpretation Comments UA Leuk Est (test code Trace *ABN*(02/13/16 3:40 = UA Leuk Est) AM) [facility] AND [id number] 08:40:00 Test Item Value Reference Range Interpretation Comments UA Nitrite (test code Negative (02/13/16 3:40 = UA Nitrite) AM) [facility] AND [id number] 08:40:00 Test Item Value Reference Range Interpretation Comments UA Urobilinogen (test code = UA 0.2 0.1-1.0 Urobilinogen) [facility] AND [id number] 08:40:00 Test Item Value Reference Range Interpretation Comments UA Ketones (test code Negative *NA*(02/13/16 = UA Ketones) 3:40 AM) [facility] AND [id number] 08:40:00 Test Item Value Reference Range Interpretation Comments UA Glucose (test code Negative (02/13/16 3:40 = UA Glucose) AM) [facility] AND [id number] 08:40:00 Test Item Value Reference Range Interpretation Comments UA Blood (test code = Large *ABN*(02/13/16 UA Blood) 3:40 AM) [facility] AND [id number] 08:40:00 Test Item Value Reference Range Interpretation Comments UA Bili (test code = Negative *NA*(02/13/16 UA Bili) 3:40 AM) [facility] AND [id number] 08:40:00 Test Item Value Reference Range Interpretation Comments UA Protein (test code = UA Protein) 30 mg/dL [facility] [id number] 08:40:00 Test Item Value Reference Range Interpretation Comments UA Spec Grav (test code = UA Spec 1.015 1 Grav) [facility] AND [id number] 08:40:00 Test Item Value Reference Range Interpretation Comments UA pH (test code = UA pH) 7.0 1 5.0-8.0 [facility] AND [id number] 08:40:00 Test Item Value Reference Range Interpretation Comments UA Color (test code = Red *ABN*(02/13/16 3:40 UA Color) AM) [facility] AND [id number] 08:40:00 Test Item Value Reference Range Interpretation Comments UA Turbidity (test code Bloody *ABN*(02/13/16 = UA Turbidity) 3:40 AM) [facility] AND [id number] 08:40:00 Test Item Value Reference Range Interpretation Comments UA Bacteria (test code = UA Occasional /HPF Bacteria) [facility] AND [id number] 08:40:00 Test Item Value Reference Range Interpretation Comments UA RBC (test Packed See_Comment [Automated mes shirley] code = UA RBC) *ABN*(02/13/16 3:40 The syst em which AM) generated this result transmitted ref erence range: <=2. The reference range was not used to int erpret this result as normal/abnormal . [facility] AND [id number] 08:40:00 Test Item Value Reference Range Interpretation Comments UA WBC (test code = UA WBC) 3-5 /HPF [facility] AND [id number] 08:40:00 Test Item Value Reference Range Interpretation Comments UA Sq Epi (test code = UA Sq Epi) Rare /LPF [facility] AND [id number] 08:40:00 Test Item Value Reference Range Interpretation Comments UA Leuk Est (test code Trace *ABN*(02/13/16 3:40 = UA Leuk Est) AM) [facility] AND [id number] 08:40:00 Test Item Value Reference Range Interpretation Comments UA Nitrite (test code Negative (02/13/16 3:40 = UA Nitrite) AM) [facility] AND [id number] 08:40:00 Test Item Value Reference Range Interpretation Comments UA Urobilinogen (test code = UA 0.2 0.1-1.0 Urobilinogen) [facility] AND [id number] 08:40:00 Test Item Value Reference Range Interpretation Comments UA Ketones (test code Negative *NA*(02/13/16 = UA Ketones) 3:40 AM) [facility] AND [id number] 08:40:00 Test Item Value Reference Range Interpretation Comments UA Glucose (test code Negative (02/13/16 3:40 = UA Glucose) AM) [facility] AND [id number] 08:40:00 Test Item Value Reference Range Interpretation Comments UA Blood (test code = Large *ABN*(02/13/16 UA Blood) 3:40 AM) [facility] AND [id number] 08:40:00 Test Item Value Reference Range Interpretation Comments UA Bili (test code = Negative *NA*(02/13/16 UA Bili) 3:40 AM) [facility] AND [id number] 08:40:00 Test Item Value Reference Range Interpretation Comments UA Protein (test code = UA Protein) 30 mg/dL [facility] AND [id number] 08:40:00 Test Item Value Reference Range Interpretation Comments UA Spec Grav (test code = UA Spec 1.015 1 Grav) [facility] AND [id number] 08:40:00 Test Item Value Reference Range Interpretation Comments UA pH (test code = UA pH) 7.0 1 5.0-8.0 [facility] AND [id number] 08:40:00 Test Item Value Reference Range Interpretation Comments UA Color (test code = Red *ABN*(02/13/16 3:40 UA Color) AM) [facility] AND [id number] 08:40:00 Test Item Value Reference Range Interpretation Comments UA Turbidity (test code Bloody *ABN*(02/13/16 = UA Turbidity) 3:40 AM) [facility] AND [id number] 08:40:00 Test Item Value Reference Range Interpretation Comments UA Bacteria (test code = UA Occasional /HPF Bacteria) [facility] [id number] 08:40:00 Test Item Value Reference Range Interpretation Comments UA RBC (test code = UA Packed *ABN*(02/13/16 <=2 RBC) 3:40 AM) [facility] [id number] 08:40:00 Test Item Value Reference Range Interpretation Comments UA WBC (test code = UA WBC) 3-5 /HPF [facility] [id number] 08:40:00 Test Item Value Reference Range Interpretation Comments UA Sq Epi (test code = UA Sq Epi) Rare /LPF [facility] [employer] [id number] 06:44:00 Test Item Value Reference Range Interpretation Comments Antibody Scrn (test Negative (02/13/16 1:44 code = Antibody Scrn) AM) [facility] [employer] [id number] 06:44:00 Test Item Value Reference Range Interpretation Comments ABO/Rh (test code = ABO/Rh) A POS [facility] [employer] [id number] 06:44:00 Test Item Value Reference Range Interpretation Comments CK MB Index (test 1.6 See_Comment [Automate d message] The code = CK MB Index) system w [facility] generated this result transmit gaye reference range : <=2.5. The reference range was not used to interpr et this result as satish l/abnormal. [employer]2016-07-03 06:44:00 Test Item Value Reference Range Interpretation Comments CK MB (test code = CK MB) 0.9 0.5-3.6 [facility] [employer] [id number] 06:44:00 Test Item Value Reference Range Interpretation Comments Total CK (test code = Total CK) 57 12-191 [facility] [employer] [id number] 06:44:00 Test Item Value Reference Range Interpretation Comments Troponin-I (test code no gt See_Comment [Auto mated message] The = Troponin-I) system which g enerated this result transmit gaye reference range : <=0.40. The reference r ozzy was not used to interpr et this result as satish l/abnormal. [place] [id number] 06:44:00 Test Item Value Reference Range Interpretation Comments Albumin Lvl (test code = Albumin Lvl) 3.5 3.5-5.0 [facility]2016-07-03 06:44:00 Test Item Value Reference Range Interpretation Comments Total Protein (test code = Total 7.0 6.4-8.4 Protein) [facility]2016-07-03 06:44:00 Test Item Value Reference Range Interpretation Comments ALT (test code = ALT) 19 See_Comment [Auto mated message] The system which ge nerated this result transmit gaye reference range : <=65. The reference range was not used to interpr et this result as satish l/abnormal. [facility]2016-07-03 06:44:00 Test Item Value Reference Range Interpretation Comments AST (test code = AST) 10 See_Comment [Auto mated message] The system which ge nerated this result transmit gaye reference range : <=37. The reference range was not used to interpr et this result as satish l/abnormal. [facility]2016-07-03 06:44:00 Test Item Value Reference Range Interpretation Comments Alk Phos (test code = Alk Phos) 79 39-136 [facility]2016-07-03 06:44:00 Test Item Value Reference Range Interpretation Comments Bili Total (test code = Bili Total) 0.4 0.2-1.3 [place] [id number] 06:44:00 Test Item Value Reference Range Interpretation Comments Bili Direct (test code 0.1 See_Comment [Aut omated message] The = Bili Direct) system which generated this result tra nsmitted reference range : <=0.3. The reference r ozzy was not used to int erpret this result as satish l/abnormal. [facility]2016-07-03 06:44:00 Test Item Value Reference Range Interpretation Comments Globulin (test code = Globulin) 3.5 2.0-4.0 [place] [id number] 06:44:00 Test Item Value Reference Range Interpretation Comments A/G Ratio (test code = A/G Ratio) 1.0 0.7-1.6 [place] [id number] 06:44:00 Test Item Value Reference Range Interpretation Comments Bili Indirect (test 0.3 See_Comment [Automa gaye message] The code = Bili Indirect) system which generated this result tra nsmitted reference range : <=1.0. The reference r ozzy was not used to int erpret this result as normal/abnormal . [facility]2016-07-03 06:44:00 Test Item Value Reference Range Interpretation Comments eGFR (test code = eGFR) 107 [facility]2016-07-03 06:44:00 Test Item Value Reference Range Interpretation Comments BUN (test code = BUN) 8 7-22 [facility]2016-07-03 06:44:00 Test Item Value Reference Range Interpretation Comments Glucose Lvl (test code = Glucose Lvl) 91 70-99 [facility] [facility] 06:[facility]:00 Test Item Value Reference Range Interpretation Comments Sodium Lvl (test code = Sodium Lvl) 138 135-145 [facility]2016-07-03 06:44:00 Test Item Value Reference Range Interpretation Comments Creatinine Lvl (test code = Creatinine 0.70 0.50-1.40 Lvl) [facility]2016-07-03 06:44:00 Test Item Value Reference Range Interpretation Comments Potassium Lvl (test code = Potassium 3.3 3.5-5.1 Lvl) [facility]2016-07-03 06:44:00 Test Item Value Reference Range Interpretation Comments CO2 (test code = CO2) 25 24-32 [facility]2016-07-03 06:44:00 Test Item Value Reference Range Interpretation Comments Chloride Lvl (test code = Chloride Lvl) 106 95-109 [facility]2016-07-03 06:44:00 Test Item Value Reference Range Interpretation Comments Calcium Lvl (test code = Calcium Lvl) 8.1 8.5-10.5 [facility]2016-07-03 06:44:00 Test Item Value Reference Range Interpretation Comments AGAP (test code = AGAP) 10.3 10.0-20.0 [facility]2016-07-03 06:44:00 Test Item Value Reference Range Interpretation Comments Magnesium Lvl (test code = Magnesium 2.2 1.8-2.4 Lvl) [place] 21420016-07-03 06:44:00 Test Item Value Reference Range Interpretation Comments S Preg (test code = S Negative *NA*(02/13/16 Preg) 1:44 AM) [facility]1401[facility]50-[facility] 06:44:00 Test Item Value Reference Range Interpretation Comments Basophils (test code = 0.1 See_Comment [Aut omated message] The Basophils) system which ge nerated this result tra nsmitted reference range : <=1.0. The reference r ozzy was not used to int erpret this result as normal/abnormal . [facility]CdpxaleUCRPHLWPJC4573-11-92 06:44:00 Test Item Value Reference Range Interpretation Comments Monocytes # (test code 0.3 See_Comment [Aut omated message] The = Monocytes #) system which generated this result tra nsmitted reference range : <=0.8. The reference r ozzy was not used to int erpret this result as normal/abnormal . [facility] HospitalVetgunlRHEFETPAYO5689-36-03 06:44:00 Test Item Value Reference Range Interpretation Comments Eosinophils # (test code 0.1 See_Comment [A utomated message] The = Eosinophils #) system whic h generated this result tra nsmitted reference range : <=0.5. The reference r ozzy was not used to int erpret this result as normal/abnormal . [facility] HospitalLpxktofGUHSGAGNTI9332-46-94 06:44:00 Test Item Value Reference Range Interpretation Comments Segs-Bands # (test code = Segs-Bands #) 9.3 1.5-8.1 [facility] HospitalXfjwertZUSHASBDWO9332-83-59 06:44:00 Test Item Value Reference Range Interpretation Comments Lymphocytes # (test code = Lymphocytes 2.6 1.0-5.5 #) [facility] HospitalYtevlneWTWPZJLVRY2250-37-04 06:44:00 Test Item Value Reference Range Interpretation Comments Basophils # (test code 0.0 See_Comment [Aut omated message] The = Basophils #) system which generated this result tra nsmitted reference range : <=0.2. The reference r ozzy was not used to int erpret this result as normal/abnormal . [facility] HospitalExfktcvTRCUBGJAOE3492-08-02 06:44:00 Test Item Value Reference Range Interpretation Comments Microcyte (test code = 1+ *ABN*(02/13/16 1:44 Microcyte) AM) [facility] HospitalKastzpwIZPJBICRRB2402-85-10 06:44:00 Test Item Value Reference Range Interpretation Comments Giant Plt (test code Moderate *ABN*(02/13/16 = Giant Plt) 1:44 AM) [facility] HospitalSnbzypaXQWUMQYBUW7065-48-90 06:44:00 Test Item Value Reference Range Interpretation Comments Segs (test code = Segs) 75.2 45.0-75.0 [facility] HospitalUwzkmtaKERWJIHYDE0338-93-95 06:44:00 Test Item Value Reference Range Interpretation Comments Hypochrom (test code = 1+ (02/13/16 1:44 AM) Hypochrom) [facility] HospitalFokmfobFAIEZKZVJI4021-91-95 06:44:00 Test Item Value Reference Range Interpretation Comments Eosinophils (test code = 0.7 See_Comment [A utomated message] The Eosinophils) system which ge nerated this result tra nsmitted reference range : <=4.0. The reference r ozzy was not used to int erpret this result as normal/abnormal . [facility] HospitalWqfwjinNPMUPNRTLO7579-38-68 06:44:00 Test Item Value Reference Range Interpretation Comments Lymphocytes (test code = Lymphocytes) 21.3 20.0-40.0 [facility] HospitalMylwjztQDDISJFIYN6291-44-46 06:44:00 Test Item Value Reference Range Interpretation Comments Monocytes (test code = Monocytes) 2.7 2.0-12.0 [facility] HospitalZvrkiswZCFFBFSDAU4017-93-50 06:44:00 Test Item Value Reference Range Interpretation Comments MPV (test code = MPV) 9.5 7.4-10.4 [facility] HospitalZwqbewaCZYLXWEKOX6058-38-09 06:44:00 Test Item Value Reference Range Interpretation Comments RDW (test code = RDW) 17.8 11.5-14.5 [facility] HospitalBcigqxlXWKJCNAOKB6376-02-48 06:44:00 Test Item Value Reference Range Interpretation Comments MCV (test code = MCV) 73.2 80.0-98.0 [facility] HospitalDsihzznOYUQBCIOBP2509-89-50 06:44:00 Test Item Value Reference Range Interpretation Comments MCH (test code = MCH) 21.9 pg 27.0-31.0 [facility] HospitalFxbiqpsCVSHBILCIR2694-83-40 06:44:00 Test Item Value Reference Range Interpretation Comments Hct (test code = Hct) 27.2 36.0-48.0 [facility]LJCPAXCIQI0500-68-63 06:44:00 Test Item Value Reference Range Interpretation Comments MCHC (test code = MCHC) 29.9 32.0-36.0 [facility]winWtliprqRAEJYIMPAG5508-07-94 06:44:00 Test Item Value Reference Range Interpretation Comments Platelet (test code = Platelet) 400 133-450 [facility] IdnswazUSMOJFYVRN8611-48-01 06:44:00 Test Item Value Reference Range Interpretation Comments WBC (test code = WBC) 12.4 3.7-10.4 [facility] VugqrjjAJFWYKXAQF6848-00-93 06:44:00 Test Item Value Reference Range Interpretation Comments RBC (test code = RBC) 3.72 4.20-5.40 [facility] GladwinBsozbxhQYPFQAJANU8397-59-46 06:44:00 Test Item Value Reference Range Interpretation Comments Hgb (test code = Hgb) 8.1 12.0-16.0 [facility] GladwinVtjsvjqULDUXYXHLU1167-36-55 06:44:00 Test Item Value Reference Range Interpretation Comments PTT (test code = PTT) 27.2 s 22.9-35.8 [facility]fieldOvylyfbXEUECZYPYS7109-58-30 06:44:00 Test Item Value Reference Range Interpretation Comments PT (test code = PT) 14.7 s 12.0-14.7 [facility] GladwinZouxkivXNBEVRGDFV1015-31-82 06:44:00 Test Item Value Reference Range Interpretation Comments INR (test code = INR) 1.12 0.85-1.17 [facility] [employer] [id number] 06:44:00 Test Item Value Reference Range Interpretation Comments Antibody Scrn (test Negative (02/13/16 1:44 code = Antibody Scrn) AM) [facility] [employer] [id number] 06:44:00 Test Item Value Reference Range Interpretation Comments ABO/Rh (test code = ABO/Rh) A POS [facility] BEWFUKV2825-27-31 06:44:00 Test Item Value Reference Range Interpretation Comments CK MB Index (test 1.6 See_Comment [Automate d message] The code = CK MB Index) system w [facility] generated this result transmit gaye reference range : <=2.5. The reference range was not used to interpr et this result as satish l/abnormal. [facility] [employer] [id number] 06:44:00 Test Item Value Reference Range Interpretation Comments CK MB (test code = CK MB) 0.9 0.5-3.6 [facility] VYWRHJM0684-07-12 06:44:00 Test Item Value Reference Range Interpretation Comments Total CK (test code = Total CK) 57 12-191 [facility]isco[facility] ZHLWDCQ9281-64-68 06:44:00 Test Item Value Reference Range Interpretation Comments Troponin-I (test code no gt See_Comment [Auto mated message] The = Troponin-I) system which g enerated this result transmit gaye reference range : <=0.40. The reference r ozzy was not used to interpr et this result as satish l/abnormal. [facility] [employer] [id number] 06:44:00 Test Item Value Reference Range Interpretation Comments Albumin Lvl (test code = Albumin Lvl) 3.5 3.5-5.0 [facility] [employer] [id number] 06:44:00 Test Item Value Reference Range Interpretation Comments Total Protein (test code = Total 7.0 6.4-8.4 Protein) [facility] [employer] [id number] 06:44:00 Test Item Value Reference Range Interpretation Comments ALT (test code = ALT) 19 See_Comment [Auto mated message] The system which ge nerated this result transmit gaye reference range : <=65. The reference range was not used to interpr et this result as satish l/abnormal. [facility] [employer] [id number] 06:44:00 Test Item Value Reference Range Interpretation Comments AST (test code = AST) 10 See_Comment [Auto mated message] The system which ge nerated this result transmit gaye reference range : <=37. The reference range was not used to interpr et this result as satish l/abnormal. [facility] [employer] [id number] 06:44:00 Test Item Value Reference Range Interpretation Comments Alk Phos (test code = Alk Phos) 79 39-136 [facility] [employer] [id number] 06:44:00 Test Item Value Reference Range Interpretation Comments Bili Total (test code = Bili Total) 0.4 0.2-1.3 [place] [id number] 06:44:00 Test Item Value Reference Range Interpretation Comments Bili Direct (test code 0.1 See_Comment [Aut omated message] The = Bili Direct) system which generated this result tra nsmitted reference range : <=0.3. The reference r ozzy was not used to int erpret this result as satish l/abnormal. [facility]2016-07-03 06:44:00 Test Item Value Reference Range Interpretation Comments Globulin (test code = Globulin) 3.5 2.0-4.0 [place] [id number] 06:44:00 Test Item Value Reference Range Interpretation Comments A/G Ratio (test code = A/G Ratio) 1.0 0.7-1.6 [facility]2016-07-03 06:44:00 Test Item Value Reference Range Interpretation Comments Bili Indirect (test 0.3 See_Comment [Automa gaye message] The code = Bili Indirect) system which generated this result tra nsmitted reference range : <=1.0. The reference r ozzy was not used to int erpret this result as normal/abnormal . [facility]2016-07-03 06:44:00 Test Item Value Reference Range Interpretation Comments eGFR (test code = eGFR) 107 [facility]2016-07-03 06:44:00 Test Item Value Reference Range Interpretation Comments BUN (test code = BUN) 8 7-22 [facility]2016-07-03 06:44:00 Test Item Value Reference Range Interpretation Comments Glucose Lvl (test code = Glucose Lvl) 91 70-99 [facility]2016-07-03 06:44:00 Test Item Value Reference Range Interpretation Comments Sodium Lvl (test code = Sodium Lvl) 138 135-145 [facility]2016-07-03 06:44:00 Test Item Value Reference Range Interpretation Comments Creatinine Lvl (test code = Creatinine 0.70 0.50-1.40 Lvl) [facility]2016-07-03 06:44:00 Test Item Value Reference Range Interpretation Comments Potassium Lvl (test code = Potassium 3.3 3.5-5.1 Lvl) [facility]2016-07-03 06:44:00 Test Item Value Reference Range Interpretation Comments CO2 (test code = CO2) 25 24-32 [facility]2016-07-03 06:44:00 Test Item Value Reference Range Interpretation Comments Chloride Lvl (test code = Chloride Lvl) 106 95-109 [facility]2016-07-03 06:44:00 Test Item Value Reference Range Interpretation Comments Calcium Lvl (test code = Calcium Lvl) 8.1 8.5-10.5 [facility]2016-07-03 06:44:00 Test Item Value Reference Range Interpretation Comments AGAP (test code = AGAP) 10.3 10.0-20.0 [facility]2016-07-03 06:44:00 Test Item Value Reference Range Interpretation Comments Magnesium Lvl (test code = Magnesium 2.2 1.8-2.4 Lvl) [place] 21420016-07-03 06:44:00 Test Item Value Reference Range Interpretation Comments S Preg (test code = S Negative *NA*(02/13/16 Preg) 1:44 AM) [facility] HospitalG[id number] 06:44:00 Test Item Value Reference Range Interpretation Comments Basophils (test code = 0.1 See_Comment [Aut omated message] The Basophils) system which ge nerated this result tra nsmitted reference range : <=1.0. The reference r ozzy was not used to int erpret this result as normal/abnormal . [facility] HospitalChwolgqIYANMHOOWU8418-55-11 06:44:00 Test Item Value Reference Range Interpretation Comments Monocytes # (test code 0.3 See_Comment [Aut omated message] The = Monocytes #) system which generated this result tra nsmitted reference range : <=0.8. The reference r ozzy was not used to int erpret this result as normal/abnormal . [facility] HospitalTdszjpgRXNARNDILH6532-52-37 06:44:00 Test Item Value Reference Range Interpretation Comments Eosinophils # (test code 0.1 See_Comment [A utomated message] The = Eosinophils #) system whic h generated this result tra nsmitted reference range : <=0.5. The reference r ozzy was not used to int erpret this result as normal/abnormal . [facility] HospitalZmgxkihHWGDIKWTEQ4826-06-67 06:44:00 Test Item Value Reference Range Interpretation Comments Segs-Bands # (test code = Segs-Bands #) 9.3 1.5-8.1 [facility] HospitalVsyynwqKPHONLXKEM5236-06-37 06:44:00 Test Item Value Reference Range Interpretation Comments Lymphocytes # (test code = Lymphocytes 2.6 1.0-5.5 #) [facility] HospitalOeaoxjgWGDQYUEBWH7922-10-78 06:44:00 Test Item Value Reference Range Interpretation Comments Basophils # (test code 0.0 See_Comment [Aut omated message] The = Basophils #) system which generated this result tra nsmitted reference range : <=0.2. The reference r ozzy was not used to int erpret this result as normal/abnormal . [facility] HospitalMkooqtaXFFHWBUTTV7899-53-14 06:44:00 Test Item Value Reference Range Interpretation Comments Microcyte (test code = 1+ *ABN*(02/13/16 1:44 Microcyte) AM) [facility] HospitalWxoawycNDCBBQQXJJ3597-05-12 06:44:00 Test Item Value Reference Range Interpretation Comments Giant Plt (test code Moderate *ABN*(02/13/16 = Giant Plt) 1:44 AM) [facility] HospitalSwbcqeyVDPQWOZHPL8147-30-50 06:44:00 Test Item Value Reference Range Interpretation Comments Segs (test code = Segs) 75.2 45.0-75.0 [facility] HospitalHtewmkqSVSPNBJYWM4054-59-30 06:44:00 Test Item Value Reference Range Interpretation Comments Hypochrom (test code = 1+ (02/13/16 1:44 AM) Hypochrom) [facility] HospitalNmbvwguWGWPPVHKBZ7109-96-21 06:44:00 Test Item Value Reference Range Interpretation Comments Eosinophils (test code = 0.7 See_Comment [A utomated message] The Eosinophils) system which ge nerated this result tra nsmitted reference range : <=4.0. The reference r ozzy was not used to int erpret this result as normal/abnormal . [facility] HospitalIbjsgdaCNTRDFQTWA1900-92-99 06:44:00 Test Item Value Reference Range Interpretation Comments Lymphocytes (test code = Lymphocytes) 21.3 20.0-40.0 [facility] HospitalXhoqslfCTCUEVDHLW4787-63-32 06:44:00 Test Item Value Reference Range Interpretation Comments Monocytes (test code = Monocytes) 2.7 2.0-12.0 [facility] HospitalJcdtyueECOXDEEVOI5902-84-57 06:44:00 Test Item Value Reference Range Interpretation Comments MPV (test code = MPV) 9.5 7.4-10.4 [facility] HospitalIuipgljFRPWMTTCJA8328-96-13 06:44:00 Test Item Value Reference Range Interpretation Comments RDW (test code = RDW) 17.8 11.5-14.5 [facility] HospitalSwnoaxzGXXLOZMDOX6537-26-82 06:44:00 Test Item Value Reference Range Interpretation Comments MCV (test code = MCV) 73.2 80.0-98.0 [facility] HospitalQtktqnjQWEIDQAYTB8227-89-01 06:44:00 Test Item Value Reference Range Interpretation Comments MCH (test code = MCH) 21.9 pg 27.0-31.0 [facility] HospitalHziwomfNWTYXHAQLG3837-78-56 06:44:00 Test Item Value Reference Range Interpretation Comments Hct (test code = Hct) 27.2 36.0-48.0 [facility] HospitalUsobmucCPRBDHOTEQ5973-41-88 06:44:00 Test Item Value Reference Range Interpretation Comments MCHC (test code = MCHC) 29.9 32.0-36.0 [facility] HospitalIpkxxruHGRVFBPOVU2772-54-70 06:44:00 Test Item Value Reference Range Interpretation Comments Platelet (test code = Platelet) 400 133-450 [facility] HospitalUmkbcmkQXBQEIPHTW5169-06-55 06:44:00 Test Item Value Reference Range Interpretation Comments WBC (test code = WBC) 12.4 3.7-10.4 [facility] HospitalUaxkszaNVBCEPGHUH6924-86-61 06:44:00 Test Item Value Reference Range Interpretation Comments RBC (test code = RBC) 3.72 4.20-5.40 [facility] HospitalPamkbrxLOSYEDMBYH4829-03-24 06:44:00 Test Item Value Reference Range Interpretation Comments Hgb (test code = Hgb) 8.1 12.0-16.0 [facility] HospitalXysnbgtTQBFRPMFHX3366-38-07 06:44:00 Test Item Value Reference Range Interpretation Comments PTT (test code = PTT) 27.2 s 22.9-35.8 [facility] HospitalLqugsavOXRCRIKVBI4543-99-67 06:44:00 Test Item Value Reference Range Interpretation Comments PT (test code = PT) 14.7 s 12.0-14.7 [facility] HospitalIctanioLUSWOLIDAQ5321-49-09 06:44:00 Test Item Value Reference Range Interpretation Comments INR (test code = INR) 1.12 0.85-1.17 [employer] [id number] 06:44:00 Test Item Value Reference Range Interpretation Comments Antibody Scrn (test Negative (02/13/16 1:44 code = Antibody Scrn) AM) [employer] [id number] 06:44:00 Test Item Value Reference Range Interpretation Comments ABO/Rh (test code = ABO/Rh) A POS [facility]2016-07-03 06:44:00 Test Item Value Reference Range Interpretation Comments CK MB Index (test 1.6 See_Comment [Automate d message] The code = CK MB Index) system w [facility] generated this result transmit gaye reference range : <=2.5. The reference range was not used to interpr et this result as satish l/abnormal. [facility]2016-07-03 06:44:00 Test Item Value Reference Range Interpretation Comments CK MB (test code = CK MB) 0.9 0.5-3.6 [facility]2016-07-03 06:44:00 Test Item Value Reference Range Interpretation Comments Total CK (test code = Total CK) 57 12-191 [facility]2016-07-03 06:44:00 Test Item Value Reference Range Interpretation Comments Troponin-I (test code no gt See_Comment [Auto mated message] The = Troponin-I) system which g enerated this result transmit gaye reference range : <=0.40. The reference r ozzy was not used to interpr et this result as satish l/abnormal. [employer] [id number] 06:44:00 Test Item Value Reference Range Interpretation Comments Albumin Lvl (test code = Albumin Lvl) 3.5 3.5-5.0 [employer]2016-07-03 06:44:00 Test Item Value Reference Range Interpretation Comments Total Protein (test code = Total 7.0 6.4-8.4 Protein) [employer] [id number] 06:44:00 Test Item Value Reference Range Interpretation Comments ALT (test code = ALT) 19 See_Comment [Auto mated message] The system which ge nerated this result transmit gaye reference range : <=65. The reference range was not used to interpr et this result as satish l/abnormal. [facility]2016-07-03 06:44:00 Test Item Value Reference Range Interpretation Comments AST (test code = AST) 10 See_Comment [Auto mated message] The system which ge nerated this result transmit gaye reference range : <=37. The reference range was not used to interpr et this result as satish l/abnormal. [facility]2016-07-03 06:44:00 Test Item Value Reference Range Interpretation Comments Alk Phos (test code = Alk Phos) 79 39-136 [facility]2016-07-03 06:44:00 Test Item Value Reference Range Interpretation Comments Bili Total (test code = Bili Total) 0.4 0.2-1.3 [place] [id number] 06:44:00 Test Item Value Reference Range Interpretation Comments Bili Direct (test code 0.1 See_Comment [Aut omated message] The = Bili Direct) system which generated this result tra nsmitted reference range : <=0.3. The reference r ozzy was not used to int erpret this result as satish l/abnormal. [facility]2016-07-03 06:44:00 Test Item Value Reference Range Interpretation Comments Globulin (test code = Globulin) 3.5 2.0-4.0 [place] 899676-07-03 06:44:00 Test Item Value Reference Range Interpretation Comments A/G Ratio (test code = A/G Ratio) 1.0 0.7-1.6 [place] [id number] 06:44:00 Test Item Value Reference Range Interpretation Comments Bili Indirect (test 0.3 See_Comment [Automa gaye message] The code = Bili Indirect) system which generated this result tra nsmitted reference range : <=1.0. The reference r ozzy was not used to int erpret this result as normal/abnormal . [facility]2016-07-03 06:44:00 Test Item Value Reference Range Interpretation Comments eGFR (test code = eGFR) 107 [facility]2016-07-03 06:44:00 Test Item Value Reference Range Interpretation Comments BUN (test code = BUN) 8 7-22 [facility]2016-07-03 06:44:00 Test Item Value Reference Range Interpretation Comments Glucose Lvl (test code = Glucose Lvl) 91 70-99 [facility]2016-07-03 06:44:00 Test Item Value Reference Range Interpretation Comments Sodium Lvl (test code = Sodium Lvl) 138 135-145 [facility]2016-07-03 06:44:00 Test Item Value Reference Range Interpretation Comments Creatinine Lvl (test code = Creatinine 0.70 0.50-1.40 Lvl) [facility]2016-07-03 06:44:00 Test Item Value Reference Range Interpretation Comments Potassium Lvl (test code = Potassium 3.3 3.5-5.1 Lvl) [facility]2016-07-03 06:44:00 Test Item Value Reference Range Interpretation Comments CO2 (test code = CO2) 25 24-32 [facility]2016-07-03 06:44:00 Test Item Value Reference Range Interpretation Comments Chloride Lvl (test code = Chloride Lvl) 106 95-109 [facility]2016-07-03 06:44:00 Test Item Value Reference Range Interpretation Comments Calcium Lvl (test code = Calcium Lvl) 8.1 8.5-10.5 [facility]2016-07-03 06:44:00 Test Item Value Reference Range Interpretation Comments AGAP (test code = AGAP) 10.3 10.0-20.0 [facility]2016-07-03 06:44:00 Test Item Value Reference Range Interpretation Comments Magnesium Lvl (test code = Magnesium 2.2 1.8-2.4 Lvl) [facility]kinVioxvftIPXTGAWTYXCON3822-23-04 06:44:00 Test Item Value Reference Range Interpretation Comments S Preg (test code = S Negative *NA*(02/13/16 Preg) 1:44 AM) [facility] GladwinCamdjenRVUAVUQKIH9135-91-58 06:44:00 Test Item Value Reference Range Interpretation Comments Basophils (test code = 0.1 See_Comment [Aut omated message] The Basophils) system which ge nerated this result tra nsmitted reference range : <=1.0. The reference r ozzy was not used to int erpret this result as normal/abnormal . [facility] HospitalQtpzxuhQWROUFMHBD4022-48-97 06:44:00 Test Item Value Reference Range Interpretation Comments Monocytes # (test code 0.3 See_Comment [Aut omated message] The = Monocytes #) system which generated this result tra nsmitted reference range : <=0.8. The reference r ozzy was not used to int erpret this result as normal/abnormal . [facility] HospitalFxwruvuBRBUBOGFIC0679-74-80 06:44:00 Test Item Value Reference Range Interpretation Comments Eosinophils # (test code 0.1 See_Comment [A utomated message] The = Eosinophils #) system whic h generated this result tra nsmitted reference range : <=0.5. The reference r ozzy was not used to int erpret this result as normal/abnormal . [facility] HospitalYrgtgnxCYSJPWZWSF7754-22-08 06:44:00 Test Item Value Reference Range Interpretation Comments Segs-Bands # (test code = Segs-Bands #) 9.3 1.5-8.1 [facility] HospitalAmuvcjaBHBFLQBXDU1781-02-82 06:44:00 Test Item Value Reference Range Interpretation Comments Lymphocytes # (test code = Lymphocytes 2.6 1.0-5.5 #) [facility] HospitalVlrkredZUMIWSEDJQ3514-90-93 06:44:00 Test Item Value Reference Range Interpretation Comments Basophils # (test code 0.0 See_Comment [Aut omated message] The = Basophils #) system which generated this result tra nsmitted reference range : <=0.2. The reference r ozzy was not used to int erpret this result as normal/abnormal . [facility]nysedsONFQLGVQXH7542-31-25 06:44:00 Test Item Value Reference Range Interpretation Comments Microcyte (test code = 1+ *ABN*(02/13/16 1:44 Microcyte) AM) [facility] HospitalRwaqwzeRMGUATQAWB4622-70-70 06:44:00 Test Item Value Reference Range Interpretation Comments Giant Plt (test code Moderate *ABN*(02/13/16 = Giant Plt) 1:44 AM) [facility] HospitalQcdqfmpBKYRYKTHJH3630-15-41 06:44:00 Test Item Value Reference Range Interpretation Comments Segs (test code = Segs) 75.2 45.0-75.0 [facility] HospitalJztxgthGHQXHJWLEU8061-43-38 06:44:00 Test Item Value Reference Range Interpretation Comments Hypochrom (test code = 1+ (02/13/16 1:44 AM) Hypochrom) [facility] HospitalOlnuvwzEWNWTIMZDP4080-55-69 06:44:00 Test Item Value Reference Range Interpretation Comments Eosinophils (test code = 0.7 See_Comment [A utomated message] The Eosinophils) system which ge nerated this result tra nsmitted reference range : <=4.0. The reference r ozzy was not used to int erpret this result as normal/abnormal . [facility] HospitalGdfxtsbAQRQYMGYWM8776-50-45 06:44:00 Test Item Value Reference Range Interpretation Comments Lymphocytes (test code = Lymphocytes) 21.3 20.0-40.0 [facility] HospitalFxxvxphFDGPDJRVHG6052-37-12 06:44:00 Test Item Value Reference Range Interpretation Comments Monocytes (test code = Monocytes) 2.7 2.0-12.0 [facility] HospitalSmixnvkGBXZPHQHAI8611-64-63 06:44:00 Test Item Value Reference Range Interpretation Comments MPV (test code = MPV) 9.5 7.4-10.4 [facility] HospitalZwziehuCUDREWFLUD9071-09-23 06:44:00 Test Item Value Reference Range Interpretation Comments RDW (test code = RDW) 17.8 11.5-14.5 [facility] HospitalZonnysiNWUNGQATRI2963-38-97 06:44:00 Test Item Value Reference Range Interpretation Comments MCV (test code = MCV) 73.2 80.0-98.0 [facility] HospitalLlbryfmAGRFIZVBIR6354-46-64 06:44:00 Test Item Value Reference Range Interpretation Comments MCH (test code = MCH) 21.9 pg 27.0-31.0 [facility] HospitalArvovrbTMFYMUSPDR7501-73-81 06:44:00 Test Item Value Reference Range Interpretation Comments Hct (test code = Hct) 27.2 36.0-48.0 [facility] HospitalZovbtedNYYRGAXJFO8024-85-45 06:44:00 Test Item Value Reference Range Interpretation Comments MCHC (test code = MCHC) 29.9 32.0-36.0 [facility] HospitalBnxtwaeHQPRKTCCVI0560-46-19 06:44:00 Test Item Value Reference Range Interpretation Comments Platelet (test code = Platelet) 400 133-450 [facility] HospitalEwhawupBNGCCLCKXX6358-78-79 06:44:00 Test Item Value Reference Range Interpretation Comments WBC (test code = WBC) 12.4 3.7-10.4 [employer] NetworkYeucrapMFUVAYAIXL7987-77-76 06:44:00 Test Item Value Reference Range Interpretation Comments RBC (test code = RBC) 3.72 4.20-5.40 [employer] NetworkFprvdnhFPYZCUIKMH0381-22-27 06:44:00 Test Item Value Reference Range Interpretation Comments Hgb (test code = Hgb) 8.1 12.0-16.0 [facility] RbpngshNRYCYHZUUO8214-95-64 06:44:00 Test Item Value Reference Range Interpretation Comments PTT (test code = PTT) 27.2 s 22.9-35.8 [employer] NetworkBinunklVBYXKCLMLR8531-22-46 06:44:00 Test Item Value Reference Range Interpretation Comments PT (test code = PT) 14.7 s 12.0-14.7 [facility] YtbtrrtUFAKOFUJGN2867-29-83 06:44:00 Test Item Value Reference Range Interpretation Comments INR (test code = INR) 1.12 0.85-1.17 [employer] AIFYVUR9098-03-00 06:44:00 Test Item Value Reference Range Interpretation Comments Antibody Scrn (test Negative (02/13/16 1:44 code = Antibody Scrn) AM) [employer] [id number] 06:44:00 Test Item Value Reference Range Interpretation Comments ABO/Rh (test code = ABO/Rh) A POS [employer]2016-07-03 06:44:00 Test Item Value Reference Range Interpretation Comments CK MB Index (test 1.6 See_Comment [Automate d message] The code = CK MB Index) system w [facility] generated this result transmit gaye reference range : <=2.5. The reference range was not used to interpr et this result as satish l/abnormal. [facility] [employer] [facility]2016-07-03 06:44:00 Test Item Value Reference Range Interpretation Comments CK MB (test code = CK MB) 0.9 0.5-3.6 [facility] [employer] [facility]2016-07-03 06:44:00 Test Item Value Reference Range Interpretation Comments Total CK (test code = Total CK) 57 12-191 [facility] [employer]2016-07-03 06:44:00 Test Item Value Reference Range Interpretation Comments Troponin-I (test code no gt See_Comment [Auto mated message] The = Troponin-I) system which g enerated this result transmit gaye reference range : <=0.40. The reference r ozzy was not used to interpr et this result as satish l/abnormal. [facility] [id number] 06:44:00 Test Item Value Reference Range Interpretation Comments Albumin Lvl (test code = Albumin Lvl) 3.5 3.5-5.0 [facility] [id number] 06:44:00 Test Item Value Reference Range Interpretation Comments Total Protein (test code = Total 7.0 6.4-8.4 Protein) [facility]iscoSouktelFORMERLY [id number] 06:44:00 Test Item Value Reference Range Interpretation Comments ALT (test code = ALT) 19 See_Comment [Auto mated message] The system which ge nerated this result transmit gaye reference range : <=65. The reference range was not used to interpr et this result as satish l/abnormal. [facility] [id number] 06:44:00 Test Item Value Reference Range Interpretation Comments AST (test code = AST) 10 See_Comment [Auto mated message] The system which ge nerated this result transmit gaye reference range : <=37. The reference range was not used to interpr et this result as satish l/abnormal. [facility] [id number] 06:44:00 Test Item Value Reference Range Interpretation Comments Alk Phos (test code = Alk Phos) 79 39-136 [facility] [id number] 06:44:00 Test Item Value Reference Range Interpretation Comments Bili Total (test code = Bili Total) 0.4 0.2-1.3 [facility] [id number] 06:44:00 Test Item Value Reference Range Interpretation Comments Bili Direct (test code 0.1 See_Comment [Aut omated message] The = Bili Direct) system which generated this result tra nsmitted reference range : <=0.3. The reference r ozzy was not used to int erpret this result as satish l/abnormal. [facility] [id number] 06:44:00 Test Item Value Reference Range Interpretation Comments Globulin (test code = Globulin) 3.5 2.0-4.0 [facility]iscoannFORMERLY [id number] 06:44:00 Test Item Value Reference Range Interpretation Comments A/G Ratio (test code = A/G Ratio) 1.0 0.7-1.6 [facility]2016-07-03 06:44:00 Test Item Value Reference Range Interpretation Comments Bili Indirect (test 0.3 See_Comment [Automa gaye message] The code = Bili Indirect) system which generated this result tra nsmitted reference range : <=1.0. The reference r ozzy was not used to int erpret this result as normal/abnormal . [facility]2016-07-03 06:44:00 Test Item Value Reference Range Interpretation Comments eGFR (test code = eGFR) 107 [facility]2016-07-03 06:44:00 Test Item Value Reference Range Interpretation Comments BUN (test code = BUN) 8 7-22 [place] 899676-07-03 06:44:00 Test Item Value Reference Range Interpretation Comments Glucose Lvl (test code = Glucose Lvl) 91 70-99 [facility]2016-07-03 06:44:00 Test Item Value Reference Range Interpretation Comments Sodium Lvl (test code = Sodium Lvl) 138 135-145 [facility]2016-07-03 06:44:00 Test Item Value Reference Range Interpretation Comments Creatinine Lvl (test code = Creatinine 0.70 0.50-1.40 Lvl) [facility]2016-07-03 06:44:00 Test Item Value Reference Range Interpretation Comments Potassium Lvl (test code = Potassium 3.3 3.5-5.1 Lvl) [facility]2016-07-03 06:44:00 Test Item Value Reference Range Interpretation Comments CO2 (test code = CO2) 25 24-32 [place] 899676-07-03 06:44:00 Test Item Value Reference Range Interpretation Comments Chloride Lvl (test code = Chloride Lvl) 106 95-109 [facility]2016-07-03 06:44:00 Test Item Value Reference Range Interpretation Comments Calcium Lvl (test code = Calcium Lvl) 8.1 8.5-10.5 [place] 899676-07-03 06:44:00 Test Item Value Reference Range Interpretation Comments AGAP (test code = AGAP) 10.3 10.0-20.0 [facility]2016-07-03 06:44:00 Test Item Value Reference Range Interpretation Comments Magnesium Lvl (test code = Magnesium 2.2 1.8-2.4 Lvl) [place] 21420016-07-03 06:44:00 Test Item Value Reference Range Interpretation Comments S Preg (test code = S Negative *NA*(02/13/16 Preg) 1:44 AM) [facility] HospitalYhovttpWQJYTGMMIO5354-76-78 06:44:00 Test Item Value Reference Range Interpretation Comments Basophils (test code = 0.1 See_Comment [Aut omated message] The Basophils) system which ge nerated this result tra nsmitted reference range : <=1.0. The reference r ozzy was not used to int erpret this result as normal/abnormal . [facility] HospitalYezjoitCGARLOZBDE1035-28-80 06:44:00 Test Item Value Reference Range Interpretation Comments Monocytes # (test code 0.3 See_Comment [Aut omated message] The = Monocytes #) system which generated this result tra nsmitted reference range : <=0.8. The reference r ozzy was not used to int erpret this result as normal/abnormal . [facility] HospitalPbxqfivAXXIJSHXKK0147-78-79 06:44:00 Test Item Value Reference Range Interpretation Comments Eosinophils # (test code 0.1 See_Comment [A utomated message] The = Eosinophils #) system whic h generated this result tra nsmitted reference range : <=0.5. The reference r ozzy was not used to int erpret this result as normal/abnormal . [facility] HospitalVjyvvecWZXVRKCIVB3250-22-53 06:44:00 Test Item Value Reference Range Interpretation Comments Segs-Bands # (test code = Segs-Bands #) 9.3 1.5-8.1 [facility] HospitalTgpddhwLADDHUYULD3829-41-88 06:44:00 Test Item Value Reference Range Interpretation Comments Lymphocytes # (test code = Lymphocytes 2.6 1.0-5.5 #) [facility] HospitalUwksuvlAOXQHIVNCA1136-67-84 06:44:00 Test Item Value Reference Range Interpretation Comments Basophils # (test code 0.0 See_Comment [Aut omated message] The = Basophils #) system which generated this result tra nsmitted reference range : <=0.2. The reference r ozzy was not used to int erpret this result as normal/abnormal . [facility] HospitalKvjtliyTYCUNLOHFW0254-10-51 06:44:00 Test Item Value Reference Range Interpretation Comments Microcyte (test code = 1+ *ABN*(02/13/16 1:44 Microcyte) AM) [facility] HospitalRvdzksbWZNDKQWHSL7824-02-92 06:44:00 Test Item Value Reference Range Interpretation Comments Giant Plt (test code Moderate *ABN*(02/13/16 = Giant Plt) 1:44 AM) [facility] HospitalVegurwvZFMJPDKCKM6589-06-34 06:44:00 Test Item Value Reference Range Interpretation Comments Segs (test code = Segs) 75.2 45.0-75.0 [facility] HospitalLnfjektQYHRIBRAFX8288-60-31 06:44:00 Test Item Value Reference Range Interpretation Comments Hypochrom (test code = 1+ (02/13/16 1:44 AM) Hypochrom) [facility] HospitalSnoebovVRKLYNRGQE8885-82-75 06:44:00 Test Item Value Reference Range Interpretation Comments Eosinophils (test code = 0.7 See_Comment [A utomated message] The Eosinophils) system which ge nerated this result tra nsmitted reference range : <=4.0. The reference r ozzy was not used to int erpret this result as normal/abnormal . [facility] HospitalNgkwltkWSYRMBNNSL6012-45-89 06:44:00 Test Item Value Reference Range Interpretation Comments Lymphocytes (test code = Lymphocytes) 21.3 20.0-40.0 [facility] HospitalXmkvluySMEAXBCJFZ2980-04-38 06:44:00 Test Item Value Reference Range Interpretation Comments Monocytes (test code = Monocytes) 2.7 2.0-12.0 [facility] HospitalRzwsdioXCYYBELFSQ1511-52-62 06:44:00 Test Item Value Reference Range Interpretation Comments MPV (test code = MPV) 9.5 7.4-10.4 [facility] HospitalYywfuzePMISPNCUIG1050-08-44 06:44:00 Test Item Value Reference Range Interpretation Comments RDW (test code = RDW) 17.8 11.5-14.5 [facility] HospitalUpekxklLRVSPELIHH8098-72-72 06:44:00 Test Item Value Reference Range Interpretation Comments MCV (test code = MCV) 73.2 80.0-98.0 [facility] HospitalKktshkgULAQPJAPHL2876-21-72 06:44:00 Test Item Value Reference Range Interpretation Comments MCH (test code = MCH) 21.9 pg 27.0-31.0 [facility] GladwinQzusfqnRMRMQEMILF5942-89-15 06:44:00 Test Item Value Reference Range Interpretation Comments Hct (test code = Hct) 27.2 36.0-48.0 [facility] GladwinRqhbompFKMSSTNEJM0928-61-08 06:44:00 Test Item Value Reference Range Interpretation Comments MCHC (test code = MCHC) 29.9 32.0-36.0 [facility] GladwinFkwzrhzVXGTSBYJOE8819-83-34 06:44:00 Test Item Value Reference Range Interpretation Comments Platelet (test code = Platelet) 400 133-450 [facility]fieldNhostmnRWYRWYFLWJ4083-95-00 06:44:00 Test Item Value Reference Range Interpretation Comments WBC (test code = WBC) 12.4 3.7-10.4 [facility]fieldGdifsdpLCGYKJNOHL9578-64-13 06:44:00 Test Item Value Reference Range Interpretation Comments RBC (test code = RBC) 3.72 4.20-5.40 [facility]fieldLidqlcaTXQYWXQHTD1808-19-86 06:44:00 Test Item Value Reference Range Interpretation Comments Hgb (test code = Hgb) 8.1 12.0-16.0 [facility] FriscoNfaeatpFWFDVIYBCY9120-53-27 06:44:00 Test Item Value Reference Range Interpretation Comments PTT (test code = PTT) 27.2 s 22.9-35.8 [facility]fieldOabthudTGOBSSJMGH2861-95-23 06:44:00 Test Item Value Reference Range Interpretation Comments PT (test code = PT) 14.7 s 12.0-14.7 [facility]fieldNcewswmHYKDWEMMDE7051-52-51 06:44:00 Test Item Value Reference Range Interpretation Comments INR (test code = INR) 1.12 0.85-1.17 [facility] [employer] [id number] 06:44:00 Test Item Value Reference Range Interpretation Comments Antibody Scrn (test Negative (02/13/16 1:44 code = Antibody Scrn) AM) [facility] [employer] [id number] 06:44:00 Test Item Value Reference Range Interpretation Comments ABO/Rh (test code = ABO/Rh) A POS [facility] FriscoannCARDIAC BLSPZGN2734-36-06 06:44:00 Test Item Value Reference Range Interpretation Comments CK MB Index (test 1.6 See_Comment [Automate d message] The code = CK MB Index) system w [facility] generated this result transmit gaye reference range : <=2.5. The reference range was not used to interpr et this result as satish l/abnormal. [facility] [employer] [id number] 06:44:00 Test Item Value Reference Range Interpretation Comments CK MB (test code = CK MB) 0.9 0.5-3.6 [facility] FriscoAnsira QUXFLED5848-06-05 06:44:00 Test Item Value Reference Range Interpretation Comments Total CK (test code = Total CK) 57 12-191 [facility] FriscoAnsira ALCEIPX6014-56-25 06:44:00 Test Item Value Reference Range Interpretation Comments Troponin-I (test code no gt See_Comment [Auto mated message] The = Troponin-I) system which g enerated this result transmit gaye reference range : <=0.40. The reference r ozzy was not used to interpr et this result as satish l/abnormal. [facility] [employer] [id number] 06:44:00 Test Item Value Reference Range Interpretation Comments Albumin Lvl (test code = Albumin Lvl) 3.5 3.5-5.0 [facility] [employer] [id number] 06:44:00 Test Item Value Reference Range Interpretation Comments Total Protein (test code = Total 7.0 6.4-8.4 Protein) [facility] [id number] 06:44:00 Test Item Value Reference Range Interpretation Comments ALT (test code = ALT) 19 See_Comment [Auto mated message] The system which ge nerated this result transmit gaye reference range : <=65. The reference range was not used to interpr et this result as satish l/abnormal. [facility] [employer] [id number] 06:44:00 Test Item Value Reference Range Interpretation Comments AST (test code = AST) 10 See_Comment [Auto mated message] The system which ge nerated this result transmit gaye reference range : <=37. The reference range was not used to interpr et this result as satish l/abnormal. [facility] [employer] [id number] 06:44:00 Test Item Value Reference Range Interpretation Comments Alk Phos (test code = Alk Phos) 79 39-136 [facility]2016-07-03 06:44:00 Test Item Value Reference Range Interpretation Comments Bili Total (test code = Bili Total) 0.4 0.2-1.3 [facility]2016-07-03 06:44:00 Test Item Value Reference Range Interpretation Comments Bili Direct (test code 0.1 See_Comment [Aut omated message] The = Bili Direct) system which generated this result tra nsmitted reference range : <=0.3. The reference r ozzy was not used to int erpret this result as satish l/abnormal. [facility]2016-07-03 06:44:00 Test Item Value Reference Range Interpretation Comments Globulin (test code = Globulin) 3.5 2.0-4.0 [facility]2016-07-03 06:44:00 Test Item Value Reference Range Interpretation Comments A/G Ratio (test code = A/G Ratio) 1.0 0.7-1.6 [place] 899676-07-03 06:44:00 Test Item Value Reference Range Interpretation Comments Bili Indirect (test 0.3 See_Comment [Automa gaye message] The code = Bili Indirect) system which generated this result tra nsmitted reference range : <=1.0. The reference r ozzy was not used to int erpret this result as normal/abnormal . [facility]2016-07-03 06:44:00 Test Item Value Reference Range Interpretation Comments eGFR (test code = eGFR) 107 [facility]2016-07-03 06:44:00 Test Item Value Reference Range Interpretation Comments BUN (test code = BUN) 8 7-22 [facility]2016-07-03 06:44:00 Test Item Value Reference Range Interpretation Comments Glucose Lvl (test code = Glucose Lvl) 91 70-99 [facility]2016-07-03 06:44:00 Test Item Value Reference Range Interpretation Comments Sodium Lvl (test code = Sodium Lvl) 138 135-145 [place] 899676-07-03 06:44:00 Test Item Value Reference Range Interpretation Comments Creatinine Lvl (test code = Creatinine 0.70 0.50-1.40 Lvl) [facility]2016-07-03 06:44:00 Test Item Value Reference Range Interpretation Comments Potassium Lvl (test code = Potassium 3.3 3.5-5.1 Lvl) [facility]2016-07-03 06:44:00 Test Item Value Reference Range Interpretation Comments CO2 (test code = CO2) 25 24-32 [facility]2016-07-03 06:44:00 Test Item Value Reference Range Interpretation Comments Chloride Lvl (test code = Chloride Lvl) 106 95-109 [facility]2016-07-03 06:44:00 Test Item Value Reference Range Interpretation Comments Calcium Lvl (test code = Calcium Lvl) 8.1 8.5-10.5 [facility]2016-07-03 06:44:00 Test Item Value Reference Range Interpretation Comments AGAP (test code = AGAP) 10.3 10.0-20.0 [facility]2016-07-03 06:44:00 Test Item Value Reference Range Interpretation Comments Magnesium Lvl (test code = Magnesium 2.2 1.8-2.4 Lvl) [facility]eqbQLUQKDVDXCHCW2886-73-03 06:44:00 Test Item Value Reference Range Interpretation Comments S Preg (test code = S Negative *NA*(02/13/16 Preg) 1:44 AM) [facility]JnqukqpJUHOONRRMU6222-50-80 06:44:00 Test Item Value Reference Range Interpretation Comments Basophils (test code = 0.1 See_Comment [Aut omated message] The Basophils) system which ge nerated this result tra nsmitted reference range : <=1.0. The reference r ozzy was not used to int erpret this result as normal/abnormal . [facility] HospitalXvdrfnrTSDSMXIIQR6965-54-22 06:44:00 Test Item Value Reference Range Interpretation Comments Monocytes # (test code 0.3 See_Comment [Aut omated message] The = Monocytes #) system which generated this result tra nsmitted reference range : <=0.8. The reference r ozzy was not used to int erpret this result as normal/abnormal . [facility] HospitalIahmvilJJZHJAZPDO7629-27-26 06:44:00 Test Item Value Reference Range Interpretation Comments Eosinophils # (test code 0.1 See_Comment [A utomated message] The = Eosinophils #) system whic h generated this result tra nsmitted reference range : <=0.5. The reference r ozzy was not used to int erpret this result as normal/abnormal . [facility] HospitalFjftastLJRXRIQUNJ7816-76-78 06:44:00 Test Item Value Reference Range Interpretation Comments Segs-Bands # (test code = Segs-Bands #) 9.3 1.5-8.1 [facility] HospitalUvxmarrFBDFXIXZID4995-22-00 06:44:00 Test Item Value Reference Range Interpretation Comments Lymphocytes # (test code = Lymphocytes 2.6 1.0-5.5 #) [facility] HospitalXnxtircYIPHGQNJPH6554-73-48 06:44:00 Test Item Value Reference Range Interpretation Comments Basophils # (test code 0.0 See_Comment [Aut omated message] The = Basophils #) system which generated this result tra nsmitted reference range : <=0.2. The reference r ozzy was not used to int erpret this result as normal/abnormal . [facility] HospitalDepnzoyJLMEJSLFHV0683-92-18 06:44:00 Test Item Value Reference Range Interpretation Comments Microcyte (test code = 1+ *ABN*(02/13/16 1:44 Microcyte) AM) [facility] HospitalNbmpxqtXQSMGEMCRS5990-72-83 06:44:00 Test Item Value Reference Range Interpretation Comments Giant Plt (test code Moderate *ABN*(02/13/16 = Giant Plt) 1:44 AM) [facility] HospitalKfscenfXWQAJZRHAA8277-41-67 06:44:00 Test Item Value Reference Range Interpretation Comments Segs (test code = Segs) 75.2 45.0-75.0 [facility] HospitalBrafbrmAKFBSIULXK3713-32-34 06:44:00 Test Item Value Reference Range Interpretation Comments Hypochrom (test code = 1+ (02/13/16 1:44 AM) Hypochrom) [facility] HospitalTbgqvvgMKSCCVBXJA9130-59-83 06:44:00 Test Item Value Reference Range Interpretation Comments Eosinophils (test code = 0.7 See_Comment [A utomated message] The Eosinophils) system which ge nerated this result tra nsmitted reference range : <=4.0. The reference r ozzy was not used to int erpret this result as normal/abnormal . [facility] HospitalSqmzvjwRSVWGLGZZX4722-89-59 06:44:00 Test Item Value Reference Range Interpretation Comments Lymphocytes (test code = Lymphocytes) 21.3 20.0-40.0 [facility] HospitalPzajwhkFCFMSVAMNY9285-51-20 06:44:00 Test Item Value Reference Range Interpretation Comments Monocytes (test code = Monocytes) 2.7 2.0-12.0 [facility] HospitalQuckgeuVHKNIBRRLI1319-44-64 06:44:00 Test Item Value Reference Range Interpretation Comments MPV (test code = MPV) 9.5 7.4-10.4 [facility] HospitalSvpkxpfMQJOQLLVFS2871-52-38 06:44:00 Test Item Value Reference Range Interpretation Comments RDW (test code = RDW) 17.8 11.5-14.5 [facility] HospitalDmsnkcjWYTUODLNZO2658-53-50 06:44:00 Test Item Value Reference Range Interpretation Comments MCV (test code = MCV) 73.2 80.0-98.0 [facility] HospitalTcdnykoVZXBDARQLS1671-72-54 06:44:00 Test Item Value Reference Range Interpretation Comments MCH (test code = MCH) 21.9 pg 27.0-31.0 [facility] HospitalOvmyspqIOLSHJHICC6947-00-17 06:44:00 Test Item Value Reference Range Interpretation Comments Hct (test code = Hct) 27.2 36.0-48.0 [facility] HospitalIeuokqyBNPZDEIDZV5738-64-79 06:44:00 Test Item Value Reference Range Interpretation Comments MCHC (test code = MCHC) 29.9 32.0-36.0 [facility]oulidhOEKKCYXXOE7588-70-28 06:44:00 Test Item Value Reference Range Interpretation Comments Platelet (test code = Platelet) 400 133-450 [facility]PwppswgOMLEPWXJOO5256-44-65 06:44:00 Test Item Value Reference Range Interpretation Comments WBC (test code = WBC) 12.4 3.7-10.4 [facility] HospitalTyiegqiRBTGZZIFRH0856-99-32 06:44:00 Test Item Value Reference Range Interpretation Comments RBC (test code = RBC) 3.72 4.20-5.40 [facility] HospitalXusqdnbPOZQVIPYIX9570-96-03 06:44:00 Test Item Value Reference Range Interpretation Comments Hgb (test code = Hgb) 8.1 12.0-16.0 [facility] HospitalWmeruytEKOISRWSUP3514-23-47 06:44:00 Test Item Value Reference Range Interpretation Comments PTT (test code = PTT) 27.2 s 22.9-35.8 [facility] HospitalAhklyyiSHXMYQVKRL3687-68-04 06:44:00 Test Item Value Reference Range Interpretation Comments PT (test code = PT) 14.7 s 12.0-14.7 [employer]SdlnnudEEGYGQUPIT0517-52-25 06:44:00 Test Item Value Reference Range Interpretation Comments INR (test code = INR) 1.12 0.85-1.17 [employer] [id number] 06:44:00 Test Item Value Reference Range Interpretation Comments Antibody Scrn (test Negative (02/13/16 1:44 code = Antibody Scrn) AM) [employer] [id number] 06:44:00 Test Item Value Reference Range Interpretation Comments ABO/Rh (test code = ABO/Rh) A POS [employer]2016-07-03 06:44:00 Test Item Value Reference Range Interpretation Comments CK MB Index (test 1.6 See_Comment [Automate d message] The code = CK MB Index) system w [facility] generated this result transmit gaye reference range : <=2.5. The reference range was not used to interpr et this result as satish l/abnormal. [employer]2016-07-03 06:44:00 Test Item Value Reference Range Interpretation Comments CK MB (test code = CK MB) 0.9 0.5-3.6 [facility] [employer]2016-07-03 06:44:00 Test Item Value Reference Range Interpretation Comments Total CK (test code = Total CK) 57 12-191 [facility] [employer]2016-07-03 06:44:00 Test Item Value Reference Range Interpretation Comments Troponin-I (test code no gt See_Comment [Auto mated message] The = Troponin-I) system which g enerated this result transmit gaye reference range : <=0.40. The reference r ozzy was not used to interpr et this result as satish l/abnormal. [employer] [id number] 06:44:00 Test Item Value Reference Range Interpretation Comments Albumin Lvl (test code = Albumin Lvl) 3.5 3.5-5.0 [employer])2016-07-03 06:44:00 Test Item Value Reference Range Interpretation Comments Total Protein (test code = Total 7.0 6.4-8.4 Protein) [employer])2016-07-03 06:44:00 Test Item Value Reference Range Interpretation Comments ALT (test code = ALT) 19 See_Comment [Auto mated message] The system which ge nerated this result transmit gaye reference range : <=65. The reference range was not used to interpr et this result as satish l/abnormal. [facility]2016-07-03 06:44:00 Test Item Value Reference Range Interpretation Comments AST (test code = AST) 10 See_Comment [Auto mated message] The system which ge nerated this result transmit gaye reference range : <=37. The reference range was not used to interpr et this result as satish l/abnormal. [place] 899676-07-03 06:44:00 Test Item Value Reference Range Interpretation Comments Alk Phos (test code = Alk Phos) 79 39-136 [place] 899676-07-03 06:44:00 Test Item Value Reference Range Interpretation Comments Bili Total (test code = Bili Total) 0.4 0.2-1.3 [place] 899676-07-03 06:44:00 Test Item Value Reference Range Interpretation Comments Bili Direct (test code 0.1 See_Comment [Aut omated message] The = Bili Direct) system which generated this result tra nsmitted reference range : <=0.3. The reference r ozzy was not used to int erpret this result as satish l/abnormal. [place] 899676-07-03 06:44:00 Test Item Value Reference Range Interpretation Comments Globulin (test code = Globulin) 3.5 2.0-4.0 [place] 899676-07-03 06:44:00 Test Item Value Reference Range Interpretation Comments A/G Ratio (test code = A/G Ratio) 1.0 0.7-1.6 [place] [address]-07-03 06:44:00 Test Item Value Reference Range Interpretation Comments Bili Indirect (test 0.3 See_Comment [Automa gaye message] The code = Bili Indirect) system which generated this result tra nsmitted reference range : <=1.0. The reference r ozzy was not used to int erpret this result as normal/abnormal . [facility] [id number] 06:44:00 Test Item Value Reference Range Interpretation Comments eGFR (test code = eGFR) 107 [facility]2016-07-03 06:44:00 Test Item Value Reference Range Interpretation Comments BUN (test code = BUN) 8 7-22 [facility]2016-07-03 06:44:00 Test Item Value Reference Range Interpretation Comments Glucose Lvl (test code = Glucose Lvl) 91 70-99 [facility]2016-07-03 06:44:00 Test Item Value Reference Range Interpretation Comments Sodium Lvl (test code = Sodium Lvl) 138 135-145 [facility]2016-07-03 06:44:00 Test Item Value Reference Range Interpretation Comments Creatinine Lvl (test code = Creatinine 0.70 0.50-1.40 Lvl) [facility]2016-07-03 06:44:00 Test Item Value Reference Range Interpretation Comments Potassium Lvl (test code = Potassium 3.3 3.5-5.1 Lvl) [facility]2016-07-03 06:44:00 Test Item Value Reference Range Interpretation Comments CO2 (test code = CO2) 25 24-32 [facility]2016-07-03 06:44:00 Test Item Value Reference Range Interpretation Comments Chloride Lvl (test code = Chloride Lvl) 106 95-109 [facility]2016-07-03 06:44:00 Test Item Value Reference Range Interpretation Comments Calcium Lvl (test code = Calcium Lvl) 8.1 8.5-10.5 [facility]2016-07-03 06:44:00 Test Item Value Reference Range Interpretation Comments AGAP (test code = AGAP) 10.3 10.0-20.0 [facility]2016-07-03 06:44:00 Test Item Value Reference Range Interpretation Comments Magnesium Lvl (test code = Magnesium 2.2 1.8-2.4 Lvl) [facility]fieldXgxmrbgKHOMCOAPTAAMP6940-36-72 06:44:00 Test Item Value Reference Range Interpretation Comments S Preg (test code = S Negative *NA*(02/13/16 Preg) 1:44 AM) [facility]fieldCekwklqEVUHQMXAFR5078-82-22 06:44:00 Test Item Value Reference Range Interpretation Comments Basophils (test code = 0.1 See_Comment [Aut omated message] The Basophils) system which ge nerated this result tra nsmitted reference range : <=1.0. The reference r ozzy was not used to int erpret this result as normal/abnormal . [facility] HospitalAnidxqrQZBQLSLURV6545-30-44 06:44:00 Test Item Value Reference Range Interpretation Comments Monocytes # (test code 0.3 See_Comment [Aut omated message] The = Monocytes #) system which generated this result tra nsmitted reference range : <=0.8. The reference r ozzy was not used to int erpret this result as normal/abnormal . [facility] HospitalLsfyeiiQAAMPZQDXW1444-55-24 06:44:00 Test Item Value Reference Range Interpretation Comments Eosinophils # (test code 0.1 See_Comment [A utomated message] The = Eosinophils #) system whic h generated this result tra nsmitted reference range : <=0.5. The reference r ozzy was not used to int erpret this result as normal/abnormal . [facility] HospitalYxmdinoVPBCXNPQCQ1381-80-78 06:44:00 Test Item Value Reference Range Interpretation Comments Segs-Bands # (test code = Segs-Bands #) 9.3 1.5-8.1 [facility] HospitalJfprljzUKJUAHHBEZ1104-75-71 06:44:00 Test Item Value Reference Range Interpretation Comments Lymphocytes # (test code = Lymphocytes 2.6 1.0-5.5 #) [facility] HospitalQbiczfsHRPERCWAWK6047-30-53 06:44:00 Test Item Value Reference Range Interpretation Comments Basophils # (test code 0.0 See_Comment [Aut omated message] The = Basophils #) system which generated this result tra nsmitted reference range : <=0.2. The reference r ozzy was not used to int erpret this result as normal/abnormal . [facility] HospitalBiczsuyCXQIOJHGJD8171-25-73 06:44:00 Test Item Value Reference Range Interpretation Comments Microcyte (test code = 1+ *ABN*(02/13/16 1:44 Microcyte) AM) [facility] HospitalCcddrnnTJKHWHHHRH7020-38-56 06:44:00 Test Item Value Reference Range Interpretation Comments Giant Plt (test code Moderate *ABN*(02/13/16 = Giant Plt) 1:44 AM) [facility] HospitalLllqvjdRPYCZSPVKK1684-78-09 06:44:00 Test Item Value Reference Range Interpretation Comments Segs (test code = Segs) 75.2 45.0-75.0 [facility] HospitalDvtbbpsBIFMABBIOR6050-74-86 06:44:00 Test Item Value Reference Range Interpretation Comments Hypochrom (test code = 1+ (02/13/16 1:44 AM) Hypochrom) [facility] HospitalOsqdqehQWDWKTTONQ0826-89-91 06:44:00 Test Item Value Reference Range Interpretation Comments Eosinophils (test code = 0.7 See_Comment [A utomated message] The Eosinophils) system which ge nerated this result tra nsmitted reference range : <=4.0. The reference r ozzy was not used to int erpret this result as normal/abnormal . [facility] HospitalIylsqyvODCBXWBHIR5963-90-35 06:44:00 Test Item Value Reference Range Interpretation Comments Lymphocytes (test code = Lymphocytes) 21.3 20.0-40.0 [facility] HospitalKptrbbwKCEGOYQHLJ8878-77-37 06:44:00 Test Item Value Reference Range Interpretation Comments Monocytes (test code = Monocytes) 2.7 2.0-12.0 [facility] HospitalKpakqfwQWIBTMDHKE3405-22-53 06:44:00 Test Item Value Reference Range Interpretation Comments MPV (test code = MPV) 9.5 7.4-10.4 [facility] HospitalJujitfzTWCPICAGVR7246-22-68 06:44:00 Test Item Value Reference Range Interpretation Comments RDW (test code = RDW) 17.8 11.5-14.5 [facility] HospitalErfjnckURJHFHKHOG2368-98-79 06:44:00 Test Item Value Reference Range Interpretation Comments MCV (test code = MCV) 73.2 80.0-98.0 [facility] HospitalJgnkvvnWQDUHHJHZJ5716-75-35 06:44:00 Test Item Value Reference Range Interpretation Comments MCH (test code = MCH) 21.9 pg 27.0-31.0 [facility] HospitalNdnebrmOHIZRTKYVS7881-35-02 06:44:00 Test Item Value Reference Range Interpretation Comments Hct (test code = Hct) 27.2 36.0-48.0 [facility] HospitalHjzhtfpCRCBMQKMKA3162-33-50 06:44:00 Test Item Value Reference Range Interpretation Comments MCHC (test code = MCHC) 29.9 32.0-36.0 [facility] HospitalGfkoctjXUUNFCHDTA0950-23-97 06:44:00 Test Item Value Reference Range Interpretation Comments Platelet (test code = Platelet) 400 133-450 [facility] JfdzpwdYWYKCGQLRY9227-14-42 06:44:00 Test Item Value Reference Range Interpretation Comments WBC (test code = WBC) 12.4 3.7-10.4 [facility] JytwlkkQDVVDTCTAN5124-86-79 06:44:00 Test Item Value Reference Range Interpretation Comments RBC (test code = RBC) 3.72 4.20-5.40 [facility] [employer]ieTDIGSOJWWW9058-92-14 06:44:00 Test Item Value Reference Range Interpretation Comments Hgb (test code = Hgb) 8.1 12.0-16.0 [facility] HsouuezRJHLCWTGNO9451-67-25 06:44:00 Test Item Value Reference Range Interpretation Comments PTT (test code = PTT) 27.2 s 22.9-35.8 [facility] PvtxsviZQKKNSBXND9962-08-49 06:44:00 Test Item Value Reference Range Interpretation Comments PT (test code = PT) 14.7 s 12.0-14.7 [facility] SiharbwTJGUCFSLWC5768-71-12 06:44:00 Test Item Value Reference Range Interpretation Comments INR (test code = INR) 1.12 0.85-1.17 [facility] [employer] [id number] 06:44:00 Test Item Value Reference Range Interpretation Comments Antibody Scrn (test Negative (02/13/16 1:44 code = Antibody Scrn) AM) [facility] [employer] [id number] 06:44:00 Test Item Value Reference Range Interpretation Comments ABO/Rh (test code = ABO/Rh) A POS [facility] [employer]2016-07-03 06:44:00 Test Item Value Reference Range Interpretation Comments CK MB Index (test 1.6 See_Comment [Automate d message] The code = CK MB Index) system w [facility] generated this result transmit gaye reference range : <=2.5. The reference range was not used to interpr et this result as satish l/abnormal. [employer]2016-07-03 06:44:00 Test Item Value Reference Range Interpretation Comments CK MB (test code = CK MB) 0.9 0.5-3.6 [facility] [employer]2016-07-03 06:44:00 Test Item Value Reference Range Interpretation Comments Total CK (test code = Total CK) 57 12-191 [facility] [id number] 06:44:00 Test Item Value Reference Range Interpretation Comments Troponin-I (test code no gt See_Comment [Auto mated message] The = Troponin-I) system which g enerated this result transmit gaye reference range : <=0.40. The reference r ozzy was not used to interpr et this result as satish l/abnormal. [facility] [employer] [id number] 06:44:00 Test Item Value Reference Range Interpretation Comments Albumin Lvl (test code = Albumin Lvl) 3.5 3.5-5.0 [facility] [id number] 06:44:00 Test Item Value Reference Range Interpretation Comments Total Protein (test code = Total 7.0 6.4-8.4 Protein) [facility] [id number] 06:44:00 Test Item Value Reference Range Interpretation Comments ALT (test code = ALT) 19 See_Comment [Auto mated message] The system which ge nerated this result transmit gaye reference range : <=65. The reference range was not used to interpr et this result as satish l/abnormal. [facility] [employer] [id number] 06:44:00 Test Item Value Reference Range Interpretation Comments AST (test code = AST) 10 See_Comment [Auto mated message] The system which ge nerated this result transmit gaye reference range : <=37. The reference range was not used to interpr et this result as satish l/abnormal. [facility] [employer] [id number] 06:44:00 Test Item Value Reference Range Interpretation Comments Alk Phos (test code = Alk Phos) 79 39-136 [facility] [id number] 06:44:00 Test Item Value Reference Range Interpretation Comments Bili Total (test code = Bili Total) 0.4 0.2-1.3 [facility] [employer] [id number] 06:44:00 Test Item Value Reference Range Interpretation Comments Bili Direct (test code 0.1 See_Comment [Aut omated message] The = Bili Direct) system which generated this result tra nsmitted reference range : <=0.3. The reference r ozzy was not used to int erpret this result as satish l/abnormal. [facility]2016-07-03 06:44:00 Test Item Value Reference Range Interpretation Comments Globulin (test code = Globulin) 3.5 2.0-4.0 [facility]2016-07-03 06:44:00 Test Item Value Reference Range Interpretation Comments A/G Ratio (test code = A/G Ratio) 1.0 0.7-1.6 [facility]2016-07-03 06:44:00 Test Item Value Reference Range Interpretation Comments Bili Indirect (test 0.3 See_Comment [Automa gaye message] The code = Bili Indirect) system which generated this result tra nsmitted reference range : <=1.0. The reference r ozzy was not used to int erpret this result as normal/abnormal . [place] 899676-07-03 06:44:00 Test Item Value Reference Range Interpretation Comments eGFR (test code = eGFR) 107 [facility]2016-07-03 06:44:00 Test Item Value Reference Range Interpretation Comments BUN (test code = BUN) 8 7-22 [facility]2016-07-03 06:44:00 Test Item Value Reference Range Interpretation Comments Glucose Lvl (test code = Glucose Lvl) 91 70-99 [facility]2016-07-03 06:44:00 Test Item Value Reference Range Interpretation Comments Sodium Lvl (test code = Sodium Lvl) 138 135-145 [facility]2016-07-03 06:44:00 Test Item Value Reference Range Interpretation Comments Creatinine Lvl (test code = Creatinine 0.70 0.50-1.40 Lvl) [facility]2016-07-03 06:44:00 Test Item Value Reference Range Interpretation Comments Potassium Lvl (test code = Potassium 3.3 3.5-5.1 Lvl) [facility]2016-07-03 06:44:00 Test Item Value Reference Range Interpretation Comments CO2 (test code = CO2) 25 24-32 [facility]2016-07-03 06:44:00 Test Item Value Reference Range Interpretation Comments Chloride Lvl (test code = Chloride Lvl) 106 95-109 [facility]2016-07-03 06:44:00 Test Item Value Reference Range Interpretation Comments Calcium Lvl (test code = Calcium Lvl) 8.1 8.5-10.5 [facility]2016-07-03 06:44:00 Test Item Value Reference Range Interpretation Comments AGAP (test code = AGAP) 10.3 10.0-20.0 [facility]2016-07-03 06:44:00 Test Item Value Reference Range Interpretation Comments Magnesium Lvl (test code = Magnesium 2.2 1.8-2.4 Lvl) [facility]VxccvgqYVWKBEQSBWHAT1884-99-60 06:44:00 Test Item Value Reference Range Interpretation Comments S Preg (test code = S Negative *NA*(02/13/16 Preg) 1:44 AM) [facility]JybrgknDXJRBJFYUD3730-56-02 06:44:00 Test Item Value Reference Range Interpretation Comments Basophils (test code = 0.1 See_Comment [Aut omated message] The Basophils) system which ge nerated this result tra nsmitted reference range : <=1.0. The reference r ozzy was not used to int erpret this result as normal/abnormal . [facility] HospitalTdjtyvwJGGQPCBLCU4185-26-44 06:44:00 Test Item Value Reference Range Interpretation Comments Monocytes # (test code 0.3 See_Comment [Aut omated message] The = Monocytes #) system which generated this result tra nsmitted reference range : <=0.8. The reference r ozzy was not used to int erpret this result as normal/abnormal . [facility] HospitalUamctvbIKWOTZYEGI8844-80-90 06:44:00 Test Item Value Reference Range Interpretation Comments Eosinophils # (test code 0.1 See_Comment [A utomated message] The = Eosinophils #) system whic h generated this result tra nsmitted reference range : <=0.5. The reference r ozzy was not used to int erpret this result as normal/abnormal . [facility] HospitalWkixwkqXKMNMDDTXY6898-79-61 06:44:00 Test Item Value Reference Range Interpretation Comments Segs-Bands # (test code = Segs-Bands #) 9.3 1.5-8.1 [facility] HospitalHmqngqjCHEKEVQJPV9122-37-73 06:44:00 Test Item Value Reference Range Interpretation Comments Lymphocytes # (test code = Lymphocytes 2.6 1.0-5.5 #) [facility] HospitalRavpcedGIQZZIWGXT3297-76-00 06:44:00 Test Item Value Reference Range Interpretation Comments Basophils # (test code 0.0 See_Comment [Aut omated message] The = Basophils #) system which generated this result tra nsmitted reference range : <=0.2. The reference r ozzy was not used to int erpret this result as normal/abnormal . [facility] HospitalKpztitvYYMVYVYQBQ3929-81-90 06:44:00 Test Item Value Reference Range Interpretation Comments Microcyte (test code = 1+ *ABN*(02/13/16 1:44 Microcyte) AM) [facility] HospitalIhwyoudDWPPLBAPNH5684-66-58 06:44:00 Test Item Value Reference Range Interpretation Comments Giant Plt (test code Moderate *ABN*(02/13/16 = Giant Plt) 1:44 AM) [facility] HospitalUzjszefUHKTGKDPBF6654-61-33 06:44:00 Test Item Value Reference Range Interpretation Comments Segs (test code = Segs) 75.2 45.0-75.0 [facility] HospitalDwjxawbURJAMVWHOU9959-01-26 06:44:00 Test Item Value Reference Range Interpretation Comments Hypochrom (test code = 1+ (02/13/16 1:44 AM) Hypochrom) [facility] HospitalJulmzkcJEJDWGVITS5125-40-78 06:44:00 Test Item Value Reference Range Interpretation Comments Eosinophils (test code = 0.7 See_Comment [A utomated message] The Eosinophils) system which ge nerated this result tra nsmitted reference range : <=4.0. The reference r ozzy was not used to int erpret this result as normal/abnormal . [facility] HospitalGfsbqmbCXWJNTDEMT0461-01-65 06:44:00 Test Item Value Reference Range Interpretation Comments Lymphocytes (test code = Lymphocytes) 21.3 20.0-40.0 [facility] HospitalQllajsjBGPWEONRMU4266-02-73 06:44:00 Test Item Value Reference Range Interpretation Comments Monocytes (test code = Monocytes) 2.7 2.0-12.0 [facility] HospitalWeaenmdPJUVTXBMRA4139-62-92 06:44:00 Test Item Value Reference Range Interpretation Comments MPV (test code = MPV) 9.5 7.4-10.4 [facility] HospitalQfoeqonPYELQAGLXY0972-72-22 06:44:00 Test Item Value Reference Range Interpretation Comments RDW (test code = RDW) 17.8 11.5-14.5 [facility] HospitalBczzrcgOZJKKAHWGD6060-30-63 06:44:00 Test Item Value Reference Range Interpretation Comments MCV (test code = MCV) 73.2 80.0-98.0 [facility] HospitalSbjglctJNOSSSOTJK2115-01-60 06:44:00 Test Item Value Reference Range Interpretation Comments MCH (test code = MCH) 21.9 pg 27.0-31.0 [facility] HospitalXixcrcrNQUMEJSPWS2011-19-54 06:44:00 Test Item Value Reference Range Interpretation Comments Hct (test code = Hct) 27.2 36.0-48.0 [facility] HospitalVfxpkgtFNSNPPDRHA2707-86-73 06:44:00 Test Item Value Reference Range Interpretation Comments MCHC (test code = MCHC) 29.9 32.0-36.0 [facility] HospitalLztvjqoRFXKVISVAJ8562-10-97 06:44:00 Test Item Value Reference Range Interpretation Comments Platelet (test code = Platelet) 400 133-450 [facility] HospitalRjyoluwIBKYVNSIYP0823-07-81 06:44:00 Test Item Value Reference Range Interpretation Comments WBC (test code = WBC) 12.4 3.7-10.4 [facility] HospitalTdvfqreBHDLSSRFBN4197-10-71 06:44:00 Test Item Value Reference Range Interpretation Comments RBC (test code = RBC) 3.72 4.20-5.40 [facility] HospitalHgohpmbTEMEBHPIIO1144-37-67 06:44:00 Test Item Value Reference Range Interpretation Comments Hgb (test code = Hgb) 8.1 12.0-16.0 [facility] HospitalCmmcgmiXEXYAHQNYW4829-50-09 06:44:00 Test Item Value Reference Range Interpretation Comments PTT (test code = PTT) 27.2 s 22.9-35.8 [facility] HospitalRowwpxfYENYRTEKBU2459-24-17 06:44:00 Test Item Value Reference Range Interpretation Comments PT (test code = PT) 14.7 s 12.0-14.7 [facility] HospitalRaxzwlhFLUPIMVEFE8695-20-83 06:44:00 Test Item Value Reference Range Interpretation Comments INR (test code = INR) 1.12 0.85-1.17 [facility]fieldArtiso[facility] OWJIMWH0265-71-16 06:44:00 Test Item Value Reference Range Interpretation Comments Antibody Scrn (test Negative (02/13/16 1:44 code = Antibody Scrn) AM) [facility] [id number] 06:44:00 Test Item Value Reference Range Interpretation Comments ABO/Rh (test code = ABO/Rh) A [facility] [id number] 06:44:00 Test Item Value Reference Range Interpretation Comments CK MB Index (test 1.6 See_Comment [Automate d message] The code = CK MB Index) system w [facility] generated this result transmit gaye reference range : <=2.5. The reference range was not used to interpr et this result as satish l/abnormal. [employer] ZUNIPOY8374-27-53 06:44:00 Test Item Value Reference Range Interpretation Comments CK MB (test code = CK MB) 0.9 0.5-3.6 [facility] [employer] UPHSJQC7583-26-10 06:44:00 Test Item Value Reference Range Interpretation Comments Total CK (test code = Total CK) 57 12-191 [facility] [employer] [id number] 06:44:00 Test Item Value Reference Range Interpretation Comments Troponin-I (test code no gt See_Comment [Auto mated message] The = Troponin-I) system which g enerated this result transmit gaye reference range : <=0.40. The reference r ozzy was not used to interpr et this result as satish l/abnormal. [employer] [id number] 06:44:00 Test Item Value Reference Range Interpretation Comments Albumin Lvl (test code = Albumin Lvl) 3.5 3.5-5.0 [facility] [employer] [id number] 06:44:00 Test Item Value Reference Range Interpretation Comments Total Protein (test code = Total 7.0 6.4-8.4 Protein) [facility] [employer] [id number] 06:44:00 Test Item Value Reference Range Interpretation Comments ALT (test code = ALT) 19 See_Comment [Auto mated message] The system which ge nerated this result transmit gaye reference range : <=65. The reference range was not used to interpr et this result as satish l/abnormal. [employer] [id number] 06:44:00 Test Item Value Reference Range Interpretation Comments AST (test code = AST) 10 See_Comment [Auto mated message] The system which ge nerated this result transmit gaye reference range : <=37. The reference range was not used to interpr et this result as satish l/abnormal. [facility]2016-07-03 06:44:00 Test Item Value Reference Range Interpretation Comments Alk Phos (test code = Alk Phos) 79 39-136 [facility]2016-07-03 06:44:00 Test Item Value Reference Range Interpretation Comments Bili Total (test code = Bili Total) 0.4 0.2-1.3 [place] [id number] 06:44:00 Test Item Value Reference Range Interpretation Comments Bili Direct (test code 0.1 See_Comment [Aut omated message] The = Bili Direct) system which generated this result tra nsmitted reference range : <=0.3. The reference r ozzy was not used to int erpret this result as satish l/abnormal. [facility]2016-07-03 06:44:00 Test Item Value Reference Range Interpretation Comments Globulin (test code = Globulin) 3.5 2.0-4.0 [facility]2016-07-03 06:44:00 Test Item Value Reference Range Interpretation Comments A/G Ratio (test code = A/G Ratio) 1.0 0.7-1.6 [facility]2016-07-03 06:44:00 Test Item Value Reference Range Interpretation Comments Bili Indirect (test 0.3 See_Comment [Automa gaye message] The code = Bili Indirect) system which generated this result tra nsmitted reference range : <=1.0. The reference r ozzy was not used to int erpret this result as normal/abnormal . [facility]2016-07-03 06:44:00 Test Item Value Reference Range Interpretation Comments eGFR (test code = eGFR) 107 [place] 899676-07-03 06:44:00 Test Item Value Reference Range Interpretation Comments BUN (test code = BUN) 8 7-22 [facility]2016-07-03 06:44:00 Test Item Value Reference Range Interpretation Comments Glucose Lvl (test code = Glucose Lvl) 91 70-99 [facility]2016-07-03 06:44:00 Test Item Value Reference Range Interpretation Comments Sodium Lvl (test code = Sodium Lvl) 138 135-145 [facility]2016-07-03 06:44:00 Test Item Value Reference Range Interpretation Comments Creatinine Lvl (test code = Creatinine 0.70 0.50-1.40 Lvl) [facility]2016-07-03 06:44:00 Test Item Value Reference Range Interpretation Comments Potassium Lvl (test code = Potassium 3.3 3.5-5.1 Lvl) [facility]2016-07-03 06:44:00 Test Item Value Reference Range Interpretation Comments CO2 (test code = CO2) 25 24-32 [facility]2016-07-03 06:44:00 Test Item Value Reference Range Interpretation Comments Chloride Lvl (test code = Chloride Lvl) 106 95-109 [facility]2016-07-03 06:44:00 Test Item Value Reference Range Interpretation Comments Calcium Lvl (test code = Calcium Lvl) 8.1 8.5-10.5 [facility]2016-07-03 06:44:00 Test Item Value Reference Range Interpretation Comments AGAP (test code = AGAP) 10.3 10.0-20.0 [facility]2016-07-03 06:44:00 Test Item Value Reference Range Interpretation Comments Magnesium Lvl (test code = Magnesium 2.2 1.8-2.4 Lvl) [id number] 06:44:00 Test Item Value Reference Range Interpretation Comments S Preg (test code = S Negative *NA*(02/13/16 Preg) 1:44 AM) [facility]IALTNBCQL2642-98-11 06:44:00 Test Item Value Reference Range Interpretation Comments Basophils (test code = 0.1 See_Comment [Aut omated message] The Basophils) system which ge nerated this result tra nsmitted reference range : <=1.0. The reference r ozzy was not used to int erpret this result as normal/abnormal . [facility]MbgnqmqUEMPUVAOQO2682-13-20 06:44:00 Test Item Value Reference Range Interpretation Comments Monocytes # (test code 0.3 See_Comment [Aut omated message] The = Monocytes #) system which generated this result tra nsmitted reference range : <=0.8. The reference r ozzy was not used to int erpret this result as normal/abnormal . [facility] HospitalJrufyvsKMCYPGONMB7769-57-01 06:44:00 Test Item Value Reference Range Interpretation Comments Eosinophils # (test code 0.1 See_Comment [A utomated message] The = Eosinophils #) system whic h generated this result tra nsmitted reference range : <=0.5. The reference r ozzy was not used to int erpret this result as normal/abnormal . [facility] HospitalEpasuvbRRPOVOQLUD4432-17-21 06:44:00 Test Item Value Reference Range Interpretation Comments Segs-Bands # (test code = Segs-Bands #) 9.3 1.5-8.1 [facility] HospitalDgujzviMVOSXZJGBQ5138-55-51 06:44:00 Test Item Value Reference Range Interpretation Comments Lymphocytes # (test code = Lymphocytes 2.6 1.0-5.5 #) [facility]IjkfxhbZFRYXXQQIK0343-54-36 06:44:00 Test Item Value Reference Range Interpretation Comments Basophils # (test code 0.0 See_Comment [Aut omated message] The = Basophils #) system which generated this result tra nsmitted reference range : <=0.2. The reference r ozzy was not used to int erpret this result as normal/abnormal . [facility] HospitalPxihtecJHDWMNGOMJ3753-83-46 06:44:00 Test Item Value Reference Range Interpretation Comments Microcyte (test code = 1+ *ABN*(02/13/16 1:44 Microcyte) AM) [facility] HospitalGacsmifNNMXWBNFZZ9104-76-22 06:44:00 Test Item Value Reference Range Interpretation Comments Giant Plt (test code Moderate *ABN*(02/13/16 = Giant Plt) 1:44 AM) [facility] HospitalVuokirnRWLUROMNPP9299-79-66 06:44:00 Test Item Value Reference Range Interpretation Comments Segs (test code = Segs) 75.2 45.0-75.0 [facility] HospitalObmsieuWAVPQNBPME1055-88-89 06:44:00 Test Item Value Reference Range Interpretation Comments Hypochrom (test code = 1+ (02/13/16 1:44 AM) Hypochrom) [facility] HospitalFdpspjdLXRKSRPIUT5529-42-67 06:44:00 Test Item Value Reference Range Interpretation Comments Eosinophils (test code = 0.7 See_Comment [A utomated message] The Eosinophils) system which ge nerated this result tra nsmitted reference range : <=4.0. The reference r ozzy was not used to int erpret this result as normal/abnormal . [facility] HospitalRumxchqNCPOJSELRY8537-71-11 06:44:00 Test Item Value Reference Range Interpretation Comments Lymphocytes (test code = Lymphocytes) 21.3 20.0-40.0 [facility] HospitalPcgcszrEBWIGRBXJS0673-23-76 06:44:00 Test Item Value Reference Range Interpretation Comments Monocytes (test code = Monocytes) 2.7 2.0-12.0 [facility] HospitalThcevxtSABBVCAHKU2527-16-90 06:44:00 Test Item Value Reference Range Interpretation Comments MPV (test code = MPV) 9.5 7.4-10.4 [facility] HospitalLmhghpvYUNZZYRUAJ9924-10-10 06:44:00 Test Item Value Reference Range Interpretation Comments RDW (test code = RDW) 17.8 11.5-14.5 [facility] HospitalRazzxvmTKJRLZMMRW3975-08-51 06:44:00 Test Item Value Reference Range Interpretation Comments MCV (test code = MCV) 73.2 80.0-98.0 [facility] HospitalMkbekmoYWGBZNNMNJ0102-10-50 06:44:00 Test Item Value Reference Range Interpretation Comments MCH (test code = MCH) 21.9 pg 27.0-31.0 [facility] HospitalNobqlyaONPIVGWEDW8928-79-07 06:44:00 Test Item Value Reference Range Interpretation Comments Hct (test code = Hct) 27.2 36.0-48.0 [facility] HospitalBkamnfzHEDJPOFMOB7668-17-88 06:44:00 Test Item Value Reference Range Interpretation Comments MCHC (test code = MCHC) 29.9 32.0-36.0 [facility] HospitalVorzjotJYEHVGQWYS5939-45-92 06:44:00 Test Item Value Reference Range Interpretation Comments Platelet (test code = Platelet) 400 133-450 [facility] HospitalAugkgfwJTBQKEFDTI8107-05-60 06:44:00 Test Item Value Reference Range Interpretation Comments WBC (test code = WBC) 12.4 3.7-10.4 [facility] HospitalIagopgvFMAGRQMRIE1637-09-84 06:44:00 Test Item Value Reference Range Interpretation Comments RBC (test code = RBC) 3.72 4.20-5.40 [facility] HospitalCzcspyeNDOJCSGVED4671-86-06 06:44:00 Test Item Value Reference Range Interpretation Comments Hgb (test code = Hgb) 8.1 12.0-16.0 [facility] HospitalSacpyixXYCPOKRIUR9917-24-10 06:44:00 Test Item Value Reference Range Interpretation Comments PTT (test code = PTT) 27.2 s 22.9-35.8 [facility] VwoiqfqKQIOKWWXKA1445-57-12 06:44:00 Test Item Value Reference Range Interpretation Comments PT (test code = PT) 14.7 s 12.0-14.7 [facility] ZkwvxgkPEXLSGZRII3705-64-21 06:44:00 Test Item Value Reference Range Interpretation Comments INR (test code = INR) 1.12 0.85-1.17 [employer] [id number] 06:44:00 Test Item Value Reference Range Interpretation Comments Antibody Scrn (test Negative (02/13/16 1:44 code = Antibody Scrn) AM) [facility] [id number] 06:44:00 Test Item Value Reference Range Interpretation Comments ABO/Rh (test code = ABO/Rh) A POS [facility] [employer]2016-07-03 06:44:00 Test Item Value Reference Range Interpretation Comments CK MB Index (test 1.6 See_Comment [Automate d message] The code = CK MB Index) system w [facility] generated this result transmit gaye reference range : <=2.5. The reference range was not used to interpr et this result as satish l/abnormal. [employer]2016-07-03 06:44:00 Test Item Value Reference Range Interpretation Comments CK MB (test code = CK MB) 0.9 0.5-3.6 [facility] [employer]2016-07-03 06:44:00 Test Item Value Reference Range Interpretation Comments Total CK (test code = Total CK) 57 12-191 [facility] [employer]2016-07-03 06:44:00 Test Item Value Reference Range Interpretation Comments Troponin-I (test code no gt See_Comment [Auto mated message] The = Troponin-I) system which g enerated this result transmit gaye reference range : <=0.40. The reference r ozzy was not used to interpr et this result as satish l/abnormal. [employer]2016-07-03 06:44:00 Test Item Value Reference Range Interpretation Comments Albumin Lvl (test code = Albumin Lvl) 3.5 3.5-5.0 [place] 899676-07-03 06:44:00 Test Item Value Reference Range Interpretation Comments Total Protein (test code = Total 7.0 6.4-8.4 Protein) [facility]2016-07-03 06:44:00 Test Item Value Reference Range Interpretation Comments ALT (test code = ALT) 19 See_Comment [Auto mated message] The system which ge nerated this result transmit gaye reference range : <=65. The reference range was not used to interpr et this result as satish l/abnormal. [place] 899676-07-03 06:44:00 Test Item Value Reference Range Interpretation Comments AST (test code = AST) 10 See_Comment [Auto mated message] The system which ge nerated this result transmit gaye reference range : <=37. The reference range was not used to interpr et this result as satish l/abnormal. [place] 899676-07-03 06:44:00 Test Item Value Reference Range Interpretation Comments Alk Phos (test code = Alk Phos) 79 39-136 [facility]2016-07-03 06:44:00 Test Item Value Reference Range Interpretation Comments Bili Total (test code = Bili Total) 0.4 0.2-1.3 [place] 899676-07-03 06:44:00 Test Item Value Reference Range Interpretation Comments Bili Direct (test code 0.1 See_Comment [Aut omated message] The = Bili Direct) system which generated this result tra nsmitted reference range : <=0.3. The reference r ozzy was not used to int erpret this result as satish l/abnormal. [facility]2016-07-03 06:44:00 Test Item Value Reference Range Interpretation Comments Globulin (test code = Globulin) 3.5 2.0-4.0 [place] 899676-07-03 06:44:00 Test Item Value Reference Range Interpretation Comments A/G Ratio (test code = A/G Ratio) 1.0 0.7-1.6 [place] 899676-07-03 06:44:00 Test Item Value Reference Range Interpretation Comments Bili Indirect (test 0.3 See_Comment [Automa gaye message] The code = Bili Indirect) system which generated this result tra nsmitted reference range : <=1.0. The reference r ozzy was not used to int erpret this result as normal/abnormal . [facility]2016-07-03 06:44:00 Test Item Value Reference Range Interpretation Comments eGFR (test code = eGFR) 107 [facility]2016-07-03 06:44:00 Test Item Value Reference Range Interpretation Comments BUN (test code = BUN) 8 7-22 [facility]2016-07-03 06:44:00 Test Item Value Reference Range Interpretation Comments Glucose Lvl (test code = Glucose Lvl) 91 70-99 [facility]2016-07-03 06:44:00 Test Item Value Reference Range Interpretation Comments Sodium Lvl (test code = Sodium Lvl) 138 135-145 [facility]2016-07-03 06:44:00 Test Item Value Reference Range Interpretation Comments Creatinine Lvl (test code = Creatinine 0.70 0.50-1.40 Lvl) [facility]2016-07-03 06:44:00 Test Item Value Reference Range Interpretation Comments Potassium Lvl (test code = Potassium 3.3 3.5-5.1 Lvl) [facility]2016-07-03 06:44:00 Test Item Value Reference Range Interpretation Comments CO2 (test code = CO2) 25 24-32 [facility]2016-07-03 06:44:00 Test Item Value Reference Range Interpretation Comments Chloride Lvl (test code = Chloride Lvl) 106 95-109 [facility]2016-07-03 06:44:00 Test Item Value Reference Range Interpretation Comments Calcium Lvl (test code = Calcium Lvl) 8.1 8.5-10.5 [facility]2016-07-03 06:44:00 Test Item Value Reference Range Interpretation Comments AGAP (test code = AGAP) 10.3 10.0-20.0 [facility]2016-07-03 06:44:00 Test Item Value Reference Range Interpretation Comments Magnesium Lvl (test code = Magnesium 2.2 1.8-2.4 Lvl) [facility]BdshrbnDCCKCBFZJTPLK9325-20-56 06:44:00 Test Item Value Reference Range Interpretation Comments S Preg (test code = S Negative *NA*(02/13/16 Preg) 1:44 AM) [facility] HospitalDbziymdAYKDEVCRLH5605-85-50 06:44:00 Test Item Value Reference Range Interpretation Comments Basophils (test code = 0.1 See_Comment [Aut omated message] The Basophils) system which ge nerated this result tra nsmitted reference range : <=1.0. The reference r ozzy was not used to int erpret this result as normal/abnormal . [facility] HospitalHtljntgZRVVVAAMVZ3768-36-40 06:44:00 Test Item Value Reference Range Interpretation Comments Monocytes # (test code 0.3 See_Comment [Aut omated message] The = Monocytes #) system which generated this result tra nsmitted reference range : <=0.8. The reference r ozzy was not used to int erpret this result as normal/abnormal . [facility] HospitalYtzatgtEMCONQIESL8298-63-57 06:44:00 Test Item Value Reference Range Interpretation Comments Eosinophils # (test code 0.1 See_Comment [A utomated message] The = Eosinophils #) system whic h generated this result tra nsmitted reference range : <=0.5. The reference r ozzy was not used to int erpret this result as normal/abnormal . [facility] HospitalBixmrqgBCMRODSZLT7719-18-72 06:44:00 Test Item Value Reference Range Interpretation Comments Segs-Bands # (test code = Segs-Bands #) 9.3 1.5-8.1 [facility] HospitalRfsctzbGMGZSZEEBY6181-54-49 06:44:00 Test Item Value Reference Range Interpretation Comments Lymphocytes # (test code = Lymphocytes 2.6 1.0-5.5 #) [facility] HospitalPkwciigRINKMICMWF6360-37-86 06:44:00 Test Item Value Reference Range Interpretation Comments Basophils # (test code 0.0 See_Comment [Aut omated message] The = Basophils #) system which generated this result tra nsmitted reference range : <=0.2. The reference r ozzy was not used to int erpret this result as normal/abnormal . [facility] HospitalIkahlrkJEGHFHZULB8958-96-72 06:44:00 Test Item Value Reference Range Interpretation Comments Microcyte (test code = 1+ *ABN*(02/13/16 1:44 Microcyte) AM) [facility] HospitalGxplogiRJFJDSQQES8572-95-23 06:44:00 Test Item Value Reference Range Interpretation Comments Giant Plt (test code Moderate *ABN*(02/13/16 = Giant Plt) 1:44 AM) [facility] HospitalZakfhipQVPTLFHHXL4419-05-67 06:44:00 Test Item Value Reference Range Interpretation Comments Segs (test code = Segs) 75.2 45.0-75.0 [facility] HospitalYbaexgfDMUTUQXMBR7505-08-15 06:44:00 Test Item Value Reference Range Interpretation Comments Hypochrom (test code = 1+ (02/13/16 1:44 AM) Hypochrom) [facility] HospitalYbuzgjpUWVVQAWDFZ5345-08-90 06:44:00 Test Item Value Reference Range Interpretation Comments Eosinophils (test code = 0.7 See_Comment [A utomated message] The Eosinophils) system which ge nerated this result tra nsmitted reference range : <=4.0. The reference r ozzy was not used to int erpret this result as normal/abnormal . [facility] HospitalYvjndvnWJPHBJDSAT8258-40-14 06:44:00 Test Item Value Reference Range Interpretation Comments Lymphocytes (test code = Lymphocytes) 21.3 20.0-40.0 [facility] HospitalRwasfpkOFXNRQADKR0112-89-35 06:44:00 Test Item Value Reference Range Interpretation Comments Monocytes (test code = Monocytes) 2.7 2.0-12.0 [facility] HospitalAhaomvwJBNYBZNNCN6070-65-11 06:44:00 Test Item Value Reference Range Interpretation Comments MPV (test code = MPV) 9.5 7.4-10.4 [facility] HospitalLtpopwmZJWYFDBEOF3247-24-59 06:44:00 Test Item Value Reference Range Interpretation Comments RDW (test code = RDW) 17.8 11.5-14.5 [facility] HospitalHjepquwZXQPCGCISC5770-05-53 06:44:00 Test Item Value Reference Range Interpretation Comments MCV (test code = MCV) 73.2 80.0-98.0 [facility] HospitalShtyfngIWLYRGOHRL1468-44-09 06:44:00 Test Item Value Reference Range Interpretation Comments MCH (test code = MCH) 21.9 pg 27.0-31.0 [facility] HospitalXjdxrwlWMCPTXJNEP7303-08-11 06:44:00 Test Item Value Reference Range Interpretation Comments Hct (test code = Hct) 27.2 36.0-48.0 [facility] HospitalScghirqSSAILYXTQZ2139-75-70 06:44:00 Test Item Value Reference Range Interpretation Comments MCHC (test code = MCHC) 29.9 32.0-36.0 [facility] GlueoqjSIPYNEYOWU0032-40-68 06:44:00 Test Item Value Reference Range Interpretation Comments Platelet (test code = Platelet) 400 133-450 [facility] WkiluwkXZYDLMGXWW9274-79-11 06:44:00 Test Item Value Reference Range Interpretation Comments WBC (test code = WBC) 12.4 3.7-10.4 [facility] VlwvauwKGWADMJLQR0605-55-80 06:44:00 Test Item Value Reference Range Interpretation Comments RBC (test code = RBC) 3.72 4.20-5.40 [facility] JjtpjaaUYMQYQFZNY6697-70-03 06:44:00 Test Item Value Reference Range Interpretation Comments Hgb (test code = Hgb) 8.1 12.0-16.0 [facility]LroqgnlEPNZGVIBRR5270-46-30 06:44:00 Test Item Value Reference Range Interpretation Comments PTT (test code = PTT) 27.2 s 22.9-35.8 [facility] DwlmgltQRVWRTAYAW8040-60-81 06:44:00 Test Item Value Reference Range Interpretation Comments PT (test code = PT) 14.7 s 12.0-14.7 [facility]iscoScjenguMGRJTGRQST2629-10-13 06:44:00 Test Item Value Reference Range Interpretation Comments INR (test code = INR) 1.12 0.85-1.17 [facility] [employer] [id number] 06:44:00 Test Item Value Reference Range Interpretation Comments Antibody Scrn (test Negative (02/13/16 1:44 code = Antibody Scrn) AM) [employer] [id number] 06:44:00 Test Item Value Reference Range Interpretation Comments ABO/Rh (test code = ABO/Rh) A POS [facility] [employer]2016-07-03 06:44:00 Test Item Value Reference Range Interpretation Comments CK MB Index (test 1.6 See_Comment [Automate d message] The code = CK MB Index) system w [facility] generated this result transmit gaye reference range : <=2.5. The reference range was not used to interpr et this result as satish l/abnormal. [employer]2016-07-03 06:44:00 Test Item Value Reference Range Interpretation Comments CK MB (test code = CK MB) 0.9 0.5-3.6 [facility]Frogd[facility] DAJMFYN7733-54-09 06:44:00 Test Item Value Reference Range Interpretation Comments Total CK (test code = Total CK) 57 12-191 [facility]Max[facility]teM[facility] OJIVVZW4164-11-77 06:44:00 Test Item Value Reference Range Interpretation Comments Troponin-I (test code no gt See_Comment [Auto mated message] The = Troponin-I) system which g enerated this result transmit gaye reference range : <=0.40. The reference r ozzy was not used to interpr et this result as satish l/abnormal. [facility] [employer] [id number] 06:44:00 Test Item Value Reference Range Interpretation Comments Albumin Lvl (test code = Albumin Lvl) 3.5 3.5-5.0 [facility] [id number] 06:44:00 Test Item Value Reference Range Interpretation Comments Total Protein (test code = Total 7.0 6.4-8.4 Protein) [facility] [id number] 06:44:00 Test Item Value Reference Range Interpretation Comments ALT (test code = ALT) 19 See_Comment [Auto mated message] The system which ge nerated this result transmit gaye reference range : <=65. The reference range was not used to interpr et this result as satish l/abnormal. [facility] [employer] [id number] 06:44:00 Test Item Value Reference Range Interpretation Comments AST (test code = AST) 10 See_Comment [Auto mated message] The system which ge nerated this result transmit gaye reference range : <=37. The reference range was not used to interpr et this result as satish l/abnormal. [facility] [employer] [id number] 06:44:00 Test Item Value Reference Range Interpretation Comments Alk Phos (test code = Alk Phos) 79 39-136 [facility] [employer] [id number] 06:44:00 Test Item Value Reference Range Interpretation Comments Bili Total (test code = Bili Total) 0.4 0.2-1.3 [facility] [employer] [id number] 06:44:00 Test Item Value Reference Range Interpretation Comments Bili Direct (test code 0.1 See_Comment [Aut omated message] The = Bili Direct) system which generated this result tra nsmitted reference range : <=0.3. The reference r ozzy was not used to int erpret this result as satish l/abnormal. [facility]2016-07-03 06:44:00 Test Item Value Reference Range Interpretation Comments Globulin (test code = Globulin) 3.5 2.0-4.0 [facility]2016-07-03 06:44:00 Test Item Value Reference Range Interpretation Comments A/G Ratio (test code = A/G Ratio) 1.0 0.7-1.6 [place] 899676-07-03 06:44:00 Test Item Value Reference Range Interpretation Comments Bili Indirect (test 0.3 See_Comment [Automa gaye message] The code = Bili Indirect) system which generated this result tra nsmitted reference range : <=1.0. The reference r ozzy was not used to int erpret this result as normal/abnormal . [facility]2016-07-03 06:44:00 Test Item Value Reference Range Interpretation Comments eGFR (test code = eGFR) 107 [facility]2016-07-03 06:44:00 Test Item Value Reference Range Interpretation Comments BUN (test code = BUN) 8 7-22 [facility]2016-07-03 06:44:00 Test Item Value Reference Range Interpretation Comments Glucose Lvl (test code = Glucose Lvl) 91 70-99 [place] 899676-07-03 06:44:00 Test Item Value Reference Range Interpretation Comments Sodium Lvl (test code = Sodium Lvl) 138 135-145 [facility]2016-07-03 06:44:00 Test Item Value Reference Range Interpretation Comments Creatinine Lvl (test code = Creatinine 0.70 0.50-1.40 Lvl) [facility]2016-07-03 06:44:00 Test Item Value Reference Range Interpretation Comments Potassium Lvl (test code = Potassium 3.3 3.5-5.1 Lvl) [facility]2016-07-03 06:44:00 Test Item Value Reference Range Interpretation Comments CO2 (test code = CO2) 25 24-32 [place] [id number] 06:44:00 Test Item Value Reference Range Interpretation Comments Chloride Lvl (test code = Chloride Lvl) 106 95-109 [facility]2016-07-03 06:44:00 Test Item Value Reference Range Interpretation Comments Calcium Lvl (test code = Calcium Lvl) 8.1 8.5-10.5 [facility]2016-07-03 06:44:00 Test Item Value Reference Range Interpretation Comments AGAP (test code = AGAP) 10.3 10.0-20.0 [facility]2016-07-03 06:44:00 Test Item Value Reference Range Interpretation Comments Magnesium Lvl (test code = Magnesium 2.2 1.8-2.4 Lvl) [facility] 06:44:00 Test Item Value Reference Range Interpretation Comments S Preg (test code = S Negative *NA*(02/13/16 Preg) 1:44 AM) [facility]dQMVOWEXDMN6615-00-99 06:44:00 Test Item Value Reference Range Interpretation Comments Basophils (test code = 0.1 See_Comment [Aut omated message] The Basophils) system which ge nerated this result tra nsmitted reference range : <=1.0. The reference r ozzy was not used to int erpret this result as normal/abnormal . [facility]MxctncyJPINSBIOSZ6652-95-21 06:44:00 Test Item Value Reference Range Interpretation Comments Monocytes # (test code 0.3 See_Comment [Aut omated message] The = Monocytes #) system which generated this result tra nsmitted reference range : <=0.8. The reference r ozzy was not used to int erpret this result as normal/abnormal . [facility] HospitalPtyspbdXBQSCSGFKT2247-82-56 06:44:00 Test Item Value Reference Range Interpretation Comments Eosinophils # (test code 0.1 See_Comment [A utomated message] The = Eosinophils #) system whic h generated this result tra nsmitted reference range : <=0.5. The reference r ozzy was not used to int erpret this result as normal/abnormal . [facility] HospitalMlmxkkmCLTTNSPHWM7623-12-76 06:44:00 Test Item Value Reference Range Interpretation Comments Segs-Bands # (test code = Segs-Bands #) 9.3 1.5-8.1 [facility] HospitalSsxpwkcHSJMMEJHCG3680-96-62 06:44:00 Test Item Value Reference Range Interpretation Comments Lymphocytes # (test code = Lymphocytes 2.6 1.0-5.5 #) [facility] HospitalHbhdwtsEYBLDMUZBW4250-90-78 06:44:00 Test Item Value Reference Range Interpretation Comments Basophils # (test code 0.0 See_Comment [Aut omated message] The = Basophils #) system which generated this result tra nsmitted reference range : <=0.2. The reference r ozzy was not used to int erpret this result as normal/abnormal . [facility] HospitalLjhwhfvODIEJSNRZY4075-99-21 06:44:00 Test Item Value Reference Range Interpretation Comments Microcyte (test code = 1+ *ABN*(02/13/16 1:44 Microcyte) AM) [facility] HospitalDehbzzlXDXEVVEHRN6981-49-02 06:44:00 Test Item Value Reference Range Interpretation Comments Giant Plt (test code Moderate *ABN*(02/13/16 = Giant Plt) 1:44 AM) [facility] HospitalVcojsqwXQYDGLCQSG7461-99-75 06:44:00 Test Item Value Reference Range Interpretation Comments Segs (test code = Segs) 75.2 45.0-75.0 [facility] HospitalKrynzrvWURGAQZOAJ3631-69-46 06:44:00 Test Item Value Reference Range Interpretation Comments Hypochrom (test code = 1+ (02/13/16 1:44 AM) Hypochrom) [facility] HospitalOfxentgBGADWDJQFT1589-51-99 06:44:00 Test Item Value Reference Range Interpretation Comments Eosinophils (test code = 0.7 See_Comment [A utomated message] The Eosinophils) system which ge nerated this result tra nsmitted reference range : <=4.0. The reference r ozzy was not used to int erpret this result as normal/abnormal . [facility] HospitalDdcwsqoPUKPQDFBZG6110-27-16 06:44:00 Test Item Value Reference Range Interpretation Comments Lymphocytes (test code = Lymphocytes) 21.3 20.0-40.0 [facility] HospitalYtffkbpCOSXOMTESH6778-32-10 06:44:00 Test Item Value Reference Range Interpretation Comments Monocytes (test code = Monocytes) 2.7 2.0-12.0 [facility] HospitalRzvhqhsTEIVSDPGVS1144-52-59 06:44:00 Test Item Value Reference Range Interpretation Comments MPV (test code = MPV) 9.5 7.4-10.4 [facility] HospitalCepgxdjARVXZEZUUK7441-73-17 06:44:00 Test Item Value Reference Range Interpretation Comments RDW (test code = RDW) 17.8 11.5-14.5 [facility]winEsqlkdaTRVVZRUVGP6031-97-60 06:44:00 Test Item Value Reference Range Interpretation Comments MCV (test code = MCV) 73.2 80.0-98.0 [facility] GladwinQwkeqzjJCGIQRECGI9794-78-50 06:44:00 Test Item Value Reference Range Interpretation Comments MCH (test code = MCH) 21.9 pg 27.0-31.0 [facility] GladwinZbklsrkQVJBANFHDM0643-92-57 06:44:00 Test Item Value Reference Range Interpretation Comments Hct (test code = Hct) 27.2 36.0-48.0 [facility] GladwinEjjklzmNPJPSUORVJ3592-84-40 06:44:00 Test Item Value Reference Range Interpretation Comments MCHC (test code = MCHC) 29.9 32.0-36.0 [facility] GladwinBzaatlmPQMYCGMAZF4940-97-43 06:44:00 Test Item Value Reference Range Interpretation Comments Platelet (test code = Platelet) 400 133-450 [facility] HospitalQthmpigZMTLETUBJE7046-12-11 06:44:00 Test Item Value Reference Range Interpretation Comments WBC (test code = WBC) 12.4 3.7-10.4 [facility] GladwinGxhrpiuMTBDGXRLNS3718-99-52 06:44:00 Test Item Value Reference Range Interpretation Comments RBC (test code = RBC) 3.72 4.20-5.40 [facility] HospitalEaryxlyXGKHSKKYIS9183-50-92 06:44:00 Test Item Value Reference Range Interpretation Comments Hgb (test code = Hgb) 8.1 12.0-16.0 [facility] HospitalSuebwwiENFKYAGPHS8549-19-48 06:44:00 Test Item Value Reference Range Interpretation Comments PTT (test code = PTT) 27.2 s 22.9-35.8 [facility]winGnqkkorBKKJYXPJUZ5051-62-90 06:44:00 Test Item Value Reference Range Interpretation Comments PT (test code = PT) 14.7 s 12.0-14.7 [facility] HospitalOvhdmqcTCXJLATVVE8483-78-12 06:44:00 Test Item Value Reference Range Interpretation Comments INR (test code = INR) 1.12 0.85-1.17 [facility] [id number] 06:44:00 Test Item Value Reference Range Interpretation Comments Antibody Scrn (test Negative (02/13/16 1:44 code = Antibody Scrn) AM) [employer] [facility] [id number] 06:44:00 Test Item Value Reference Range Interpretation Comments ABO/Rh (test code = ABO/Rh) A POS [facility] [employer] [id number] 06:44:00 Test Item Value Reference Range Interpretation Comments CK MB Index (test 1.6 See_Comment [Automate d message] The code = CK MB Index) system w [facility] generated this result transmit gaye reference range : <=2.5. The reference range was not used to interpr et this result as satish l/abnormal. [employer] [id number] 06:44:00 Test Item Value Reference Range Interpretation Comments CK MB (test code = CK MB) 0.9 0.5-3.6 [facility] [id number] 06:44:00 Test Item Value Reference Range Interpretation Comments Total CK (test code = Total CK) 57 12-191 [facility] [id number] 06:44:00 Test Item Value Reference Range Interpretation Comments Troponin-I (test code no gt See_Comment [Auto mated message] The = Troponin-I) system which g enerated this result transmit gaye reference range : <=0.40. The reference r ozzy was not used to interpr et this result as satish l/abnormal. [employer] [id number] 06:44:00 Test Item Value Reference Range Interpretation Comments Albumin Lvl (test code = Albumin Lvl) 3.5 3.5-5.0 [facility] [employer] [id number] 06:44:00 Test Item Value Reference Range Interpretation Comments Total Protein (test code = Total 7.0 6.4-8.4 Protein) [facility] [employer] [id number] 06:44:00 Test Item Value Reference Range Interpretation Comments ALT (test code = ALT) 19 See_Comment [Auto mated message] The system which ge nerated this result transmit gaye reference range : <=65. The reference range was not used to interpr et this result as satish l/abnormal. [employer] [id number] 06:44:00 Test Item Value Reference Range Interpretation Comments AST (test code = AST) 10 See_Comment [Auto mated message] The system which ge nerated this result transmit gaye reference range : <=37. The reference range was not used to interpr et this result as satish l/abnormal. [facility]2016-07-03 06:44:00 Test Item Value Reference Range Interpretation Comments Alk Phos (test code = Alk Phos) 79 39-136 [facility]2016-07-03 06:44:00 Test Item Value Reference Range Interpretation Comments Bili Total (test code = Bili Total) 0.4 0.2-1.3 [facility]2016-07-03 06:44:00 Test Item Value Reference Range Interpretation Comments Bili Direct (test code 0.1 See_Comment [Aut omated message] The = Bili Direct) system which generated this result tra nsmitted reference range : <=0.3. The reference r ozzy was not used to int erpret this result as satish l/abnormal. [facility]2016-07-03 06:44:00 Test Item Value Reference Range Interpretation Comments Globulin (test code = Globulin) 3.5 2.0-4.0 [facility]2016-07-03 06:44:00 Test Item Value Reference Range Interpretation Comments A/G Ratio (test code = A/G Ratio) 1.0 0.7-1.6 [facility]2016-07-03 06:44:00 Test Item Value Reference Range Interpretation Comments Bili Indirect (test 0.3 See_Comment [Automa gaye message] The code = Bili Indirect) system which generated this result tra nsmitted reference range : <=1.0. The reference r ozzy was not used to int erpret this result as normal/abnormal . [facility]2016-07-03 06:44:00 Test Item Value Reference Range Interpretation Comments eGFR (test code = eGFR) 107 [facility]2016-07-03 06:44:00 Test Item Value Reference Range Interpretation Comments BUN (test code = BUN) 8 7-22 [place] 899676-07-03 06:44:00 Test Item Value Reference Range Interpretation Comments Glucose Lvl (test code = Glucose Lvl) 91 70-99 [place] 899676-07-03 06:44:00 Test Item Value Reference Range Interpretation Comments Sodium Lvl (test code = Sodium Lvl) 138 135-145 [facility]2016-07-03 06:44:00 Test Item Value Reference Range Interpretation Comments Creatinine Lvl (test code = Creatinine 0.70 0.50-1.40 Lvl) [facility]2016-07-03 06:44:00 Test Item Value Reference Range Interpretation Comments Potassium Lvl (test code = Potassium 3.3 3.5-5.1 Lvl) [facility]2016-07-03 06:44:00 Test Item Value Reference Range Interpretation Comments CO2 (test code = CO2) 25 24-32 [facility]2016-07-03 06:44:00 Test Item Value Reference Range Interpretation Comments Chloride Lvl (test code = Chloride Lvl) 106 95-109 [facility]2016-07-03 06:44:00 Test Item Value Reference Range Interpretation Comments Calcium Lvl (test code = Calcium Lvl) 8.1 8.5-10.5 [facility]2016-07-03 06:44:00 Test Item Value Reference Range Interpretation Comments AGAP (test code = AGAP) 10.3 10.0-20.0 [facility]2016-07-03 06:44:00 Test Item Value Reference Range Interpretation Comments Magnesium Lvl (test code = Magnesium 2.2 1.8-2.4 Lvl) [facility] LufkinO[id number] 06:44:00 Test Item Value Reference Range Interpretation Comments S Preg (test code = S Negative *NA*(02/13/16 Preg) 1:44 AM) [facility] HospitalIrhxkixQDAMACCJBL5781-19-29 06:44:00 Test Item Value Reference Range Interpretation Comments Basophils (test code = 0.1 See_Comment [Aut omated message] The Basophils) system which ge nerated this result tra nsmitted reference range : <=1.0. The reference r ozzy was not used to int erpret this result as normal/abnormal . [facility] HospitalTrzddqqGIOHWQDJJY5297-65-38 06:44:00 Test Item Value Reference Range Interpretation Comments Monocytes # (test code 0.3 See_Comment [Aut omated message] The = Monocytes #) system which generated this result tra nsmitted reference range : <=0.8. The reference r ozzy was not used to int erpret this result as normal/abnormal . [facility] HospitalOpayjbzLNXAZPPHRJ8935-66-88 06:44:00 Test Item Value Reference Range Interpretation Comments Eosinophils # (test code 0.1 See_Comment [A utomated message] The = Eosinophils #) system whic h generated this result tra nsmitted reference range : <=0.5. The reference r ozzy was not used to int erpret this result as normal/abnormal . [facility] HospitalUqnazrkMORZQLAAWQ4125-62-71 06:44:00 Test Item Value Reference Range Interpretation Comments Segs-Bands # (test code = Segs-Bands #) 9.3 1.5-8.1 [facility] HospitalNtegtroTSRLXPJTQE3924-35-58 06:44:00 Test Item Value Reference Range Interpretation Comments Lymphocytes # (test code = Lymphocytes 2.6 1.0-5.5 #) [facility] HospitalRcpygliYKBMYGXHYC3796-63-26 06:44:00 Test Item Value Reference Range Interpretation Comments Basophils # (test code 0.0 See_Comment [Aut omated message] The = Basophils #) system which generated this result tra nsmitted reference range : <=0.2. The reference r ozzy was not used to int erpret this result as normal/abnormal . [facility] HospitalChmiisyGRANFASFJR3445-56-34 06:44:00 Test Item Value Reference Range Interpretation Comments Microcyte (test code = 1+ *ABN*(02/13/16 1:44 Microcyte) AM) [facility] HospitalPruzbbpTUGADHATIK3726-68-93 06:44:00 Test Item Value Reference Range Interpretation Comments Giant Plt (test code Moderate *ABN*(02/13/16 = Giant Plt) 1:44 AM) [facility] HospitalCytusyoBSODNHWEFV4967-42-79 06:44:00 Test Item Value Reference Range Interpretation Comments Segs (test code = Segs) 75.2 45.0-75.0 [facility] HospitalZtrhvvqZEMIWQSQBO4642-25-18 06:44:00 Test Item Value Reference Range Interpretation Comments Hypochrom (test code = 1+ (02/13/16 1:44 AM) Hypochrom) [facility] HospitalDkqzwxoOONQFBNWCT2115-60-89 06:44:00 Test Item Value Reference Range Interpretation Comments Eosinophils (test code = 0.7 See_Comment [A utomated message] The Eosinophils) system which ge nerated this result tra nsmitted reference range : <=4.0. The reference r ozzy was not used to int erpret this result as normal/abnormal . [facility] HospitalJdwjzqtOTYREMIMDI2984-63-92 06:44:00 Test Item Value Reference Range Interpretation Comments Lymphocytes (test code = Lymphocytes) 21.3 20.0-40.0 [facility] HospitalEyvrhieFVFCGEWGVF2366-24-27 06:44:00 Test Item Value Reference Range Interpretation Comments Monocytes (test code = Monocytes) 2.7 2.0-12.0 [facility] HospitalWyoqjlqVEXITOWKVJ1316-42-84 06:44:00 Test Item Value Reference Range Interpretation Comments MPV (test code = MPV) 9.5 7.4-10.4 [facility] HospitalCrwikmnLCPFUMQTJU9282-11-40 06:44:00 Test Item Value Reference Range Interpretation Comments RDW (test code = RDW) 17.8 11.5-14.5 [facility] HospitalQnhtmycMVIOJWLGJK0667-49-61 06:44:00 Test Item Value Reference Range Interpretation Comments MCV (test code = MCV) 73.2 80.0-98.0 [facility] HospitalGkoewemNETYBPFBJJ2395-22-33 06:44:00 Test Item Value Reference Range Interpretation Comments MCH (test code = MCH) 21.9 pg 27.0-31.0 [facility] HospitalNtwwwqhKYMQTYQWYV1677-95-81 06:44:00 Test Item Value Reference Range Interpretation Comments Hct (test code = Hct) 27.2 36.0-48.0 [facility] HospitalCvwohizFCPJTYKEHL2242-04-05 06:44:00 Test Item Value Reference Range Interpretation Comments MCHC (test code = MCHC) 29.9 32.0-36.0 [facility] HospitalUigffgiWAQPTOFTWV3551-54-94 06:44:00 Test Item Value Reference Range Interpretation Comments Platelet (test code = Platelet) 400 133-450 [facility] HospitalHlzcjeuICRKPPBRKO1001-79-86 06:44:00 Test Item Value Reference Range Interpretation Comments WBC (test code = WBC) 12.4 3.7-10.4 [facility] HospitalVnpetptTXKVBILTVS8121-50-54 06:44:00 Test Item Value Reference Range Interpretation Comments RBC (test code = RBC) 3.72 4.20-5.40 [facility] HospitalIhihsbqPEFLVULGCR7558-72-01 06:44:00 Test Item Value Reference Range Interpretation Comments Hgb (test code = Hgb) 8.1 12.0-16.0 [facility] UwlwiseRFMNMFWTGC5465-70-16 06:44:00 Test Item Value Reference Range Interpretation Comments PTT (test code = PTT) 27.2 s 22.9-35.8 [facility] SwpkuwaVVDTPAEIQP6879-30-88 06:44:00 Test Item Value Reference Range Interpretation Comments PT (test code = PT) 14.7 s 12.0-14.7 [employer] NetworkCvcostdHLXZCRQNVA4121-12-71 06:44:00 Test Item Value Reference Range Interpretation Comments INR (test code = INR) 1.12 0.85-1.17 [employer] OQOJVKP9076-65-25 06:44:00 Test Item Value Reference Range Interpretation Comments Antibody Scrn (test Negative (02/13/16 1:44 code = Antibody Scrn) AM) [employer] [id number] 06:44:00 Test Item Value Reference Range Interpretation Comments ABO/Rh (test code = ABO/Rh) A POS [employer]2016-07-03 06:44:00 Test Item Value Reference Range Interpretation Comments CK MB Index (test 1.6 See_Comment [Automate d message] The code = CK MB Index) system w [facility] generated this result transmit gaye reference range : <=2.5. The reference range was not used to interpr et this result as satish l/abnormal. [facility] [employer] [facility]2016-07-03 06:44:00 Test Item Value Reference Range Interpretation Comments CK MB (test code = CK MB) 0.9 0.5-3.6 [facility] [employer]2016-07-03 06:44:00 Test Item Value Reference Range Interpretation Comments Total CK (test code = Total CK) 57 12-191 [facility] [employer]2016-07-03 06:44:00 Test Item Value Reference Range Interpretation Comments Troponin-I (test code no gt See_Comment [Auto mated message] The = Troponin-I) system which g enerated this result transmit gaye reference range : <=0.40. The reference r ozzy was not used to interpr et this result as satish l/abnormal. [employer] [id number] 06:44:00 Test Item Value Reference Range Interpretation Comments Albumin Lvl (test code = Albumin Lvl) 3.5 3.5-5.0 [facility]2016-07-03 06:44:00 Test Item Value Reference Range Interpretation Comments Total Protein (test code = Total 7.0 6.4-8.4 Protein) [facility]2016-07-03 06:44:00 Test Item Value Reference Range Interpretation Comments ALT (test code = ALT) 19 See_Comment [Auto mated message] The system which ge nerated this result transmit gaye reference range : <=65. The reference range was not used to interpr et this result as satish l/abnormal. [facility]2016-07-03 06:44:00 Test Item Value Reference Range Interpretation Comments AST (test code = AST) 10 See_Comment [Auto mated message] The system which ge nerated this result transmit gaye reference range : <=37. The reference range was not used to interpr et this result as satish l/abnormal. [facility] [id number] 06:44:00 Test Item Value Reference Range Interpretation Comments Alk Phos (test code = Alk Phos) 79 39-136 [facility] [id number] 06:44:00 Test Item Value Reference Range Interpretation Comments Bili Total (test code = Bili Total) 0.4 0.2-1.3 [place] [id number] 06:44:00 Test Item Value Reference Range Interpretation Comments Bili Direct (test code 0.1 See_Comment [Aut omated message] The = Bili Direct) system which generated this result tra nsmitted reference range : <=0.3. The reference r ozzy was not used to int erpret this result as satish l/abnormal. [facility] [id number] 06:44:00 Test Item Value Reference Range Interpretation Comments Globulin (test code = Globulin) 3.5 2.0-4.0 [facility] [id number] 06:44:00 Test Item Value Reference Range Interpretation Comments A/G Ratio (test code = A/G Ratio) 1.0 0.7-1.6 [facility] [id number] 06:44:00 Test Item Value Reference Range Interpretation Comments Bili Indirect (test 0.3 See_Comment [Automa gaye message] The code = Bili Indirect) system which generated this result tra nsmitted reference range : <=1.0. The reference r ozzy was not used to int erpret this result as normal/abnormal . [facility]2016-07-03 06:44:00 Test Item Value Reference Range Interpretation Comments eGFR (test code = eGFR) 107 [facility]2016-07-03 06:44:00 Test Item Value Reference Range Interpretation Comments BUN (test code = BUN) 8 7-22 [facility]2016-07-03 06:44:00 Test Item Value Reference Range Interpretation Comments Glucose Lvl (test code = Glucose Lvl) 91 70-99 [facility]2016-07-03 06:44:00 Test Item Value Reference Range Interpretation Comments Sodium Lvl (test code = Sodium Lvl) 138 135-145 [facility]2016-07-03 06:44:00 Test Item Value Reference Range Interpretation Comments Creatinine Lvl (test code = Creatinine 0.70 0.50-1.40 Lvl) [facility]2016-07-03 06:44:00 Test Item Value Reference Range Interpretation Comments Potassium Lvl (test code = Potassium 3.3 3.5-5.1 Lvl) [facility]2016-07-03 06:44:00 Test Item Value Reference Range Interpretation Comments CO2 (test code = CO2) 25 24-32 [facility]2016-07-03 06:44:00 Test Item Value Reference Range Interpretation Comments Chloride Lvl (test code = Chloride Lvl) 106 95-109 [facility]2016-07-03 06:44:00 Test Item Value Reference Range Interpretation Comments Calcium Lvl (test code = Calcium Lvl) 8.1 8.5-10.5 [facility]2016-07-03 06:44:00 Test Item Value Reference Range Interpretation Comments AGAP (test code = AGAP) 10.3 10.0-20.0 [facility]2016-07-03 06:44:00 Test Item Value Reference Range Interpretation Comments Magnesium Lvl (test code = Magnesium 2.2 1.8-2.4 Lvl) [place] 21420016-07-03 06:44:00 Test Item Value Reference Range Interpretation Comments S Preg (test code = S Negative *NA*(02/13/16 Preg) 1:44 AM) [facility] HospitalFbxakyuJBMUBUOVVO9907-11-27 06:44:00 Test Item Value Reference Range Interpretation Comments Basophils (test code = 0.1 See_Comment [Aut omated message] The Basophils) system which ge nerated this result tra nsmitted reference range : <=1.0. The reference r ozzy was not used to int erpret this result as normal/abnormal . [facility] HospitalLbxlksaRUGLTIGJYS2570-96-84 06:44:00 Test Item Value Reference Range Interpretation Comments Monocytes # (test code 0.3 See_Comment [Aut omated message] The = Monocytes #) system which generated this result tra nsmitted reference range : <=0.8. The reference r ozzy was not used to int erpret this result as normal/abnormal . [facility] HospitalKywfijsZDKLNPWPTR7587-71-40 06:44:00 Test Item Value Reference Range Interpretation Comments Eosinophils # (test code 0.1 See_Comment [A utomated message] The = Eosinophils #) system whic h generated this result tra nsmitted reference range : <=0.5. The reference r ozzy was not used to int erpret this result as normal/abnormal . [facility] HospitalNccgfabKXVYCECRPX6535-41-99 06:44:00 Test Item Value Reference Range Interpretation Comments Segs-Bands # (test code = Segs-Bands #) 9.3 1.5-8.1 [facility] HospitalYvauocpZMIFKJVQXA9304-85-42 06:44:00 Test Item Value Reference Range Interpretation Comments Lymphocytes # (test code = Lymphocytes 2.6 1.0-5.5 #) [facility] HospitalFdjpdaxAOWXNBAXAV9050-09-72 06:44:00 Test Item Value Reference Range Interpretation Comments Basophils # (test code 0.0 See_Comment [Aut omated message] The = Basophils #) system which generated this result tra nsmitted reference range : <=0.2. The reference r ozzy was not used to int erpret this result as normal/abnormal . [facility]fillxpKNZEOYBCVC0445-68-41 06:44:00 Test Item Value Reference Range Interpretation Comments Microcyte (test code = 1+ *ABN*(02/13/16 1:44 Microcyte) AM) [facility]QwsgyvbXDQFXNMIYQ7674-72-79 06:44:00 Test Item Value Reference Range Interpretation Comments Giant Plt (test code Moderate *ABN*(02/13/16 = Giant Plt) 1:44 AM) [facility]JjbrykzFKMMFHCBHT3943-04-10 06:44:00 Test Item Value Reference Range Interpretation Comments Segs (test code = Segs) 75.2 45.0-75.0 [facility] HospitalBwepidiPWCYVXPOEV5589-58-01 06:44:00 Test Item Value Reference Range Interpretation Comments Hypochrom (test code = 1+ (02/13/16 1:44 AM) Hypochrom) [facility] HospitalTjpxpmoLHCPYTGETI6706-58-14 06:44:00 Test Item Value Reference Range Interpretation Comments Eosinophils (test code = 0.7 See_Comment [A utomated message] The Eosinophils) system which ge nerated this result tra nsmitted reference range : <=4.0. The reference r zozy was not used to int erpret this result as normal/abnormal . [facility] HospitalFxztlfpWTKDFWCCKB3413-53-08 06:44:00 Test Item Value Reference Range Interpretation Comments Lymphocytes (test code = Lymphocytes) 21.3 20.0-40.0 [facility]KvlporfFJJSWUYWMH6421-62-10 06:44:00 Test Item Value Reference Range Interpretation Comments Monocytes (test code = Monocytes) 2.7 2.0-12.0 [facility] HospitalVrooiyjZBJTTNUBCV6691-09-68 06:44:00 Test Item Value Reference Range Interpretation Comments MPV (test code = MPV) 9.5 7.4-10.4 [facility] HospitalYgifztkOCVPXGBFBZ2351-46-82 06:44:00 Test Item Value Reference Range Interpretation Comments RDW (test code = RDW) 17.8 11.5-14.5 [facility] HospitalUskcoraDSDRHUNYSN2741-77-25 06:44:00 Test Item Value Reference Range Interpretation Comments MCV (test code = MCV) 73.2 80.0-98.0 [facility] HospitalAnkfddnEQZWPLMNQA1982-38-29 06:44:00 Test Item Value Reference Range Interpretation Comments MCH (test code = MCH) 21.9 pg 27.0-31.0 [facility] HospitalBooytlpMCKRYDTVKG6372-45-25 06:44:00 Test Item Value Reference Range Interpretation Comments Hct (test code = Hct) 27.2 36.0-48.0 [facility]DnnoolrYLZGLMVGPG8482-21-25 06:44:00 Test Item Value Reference Range Interpretation Comments MCHC (test code = MCHC) 29.9 32.0-36.0 [facility] GladwinJydfoiuJKAGKBMXLX3558-58-07 06:44:00 Test Item Value Reference Range Interpretation Comments Platelet (test code = Platelet) 400 133-450 [facility] GladwinFwrprgpPIPDIKUASN5239-13-31 06:44:00 Test Item Value Reference Range Interpretation Comments WBC (test code = WBC) 12.4 3.7-10.4 [facility]fieldUtdggdmXCFRAQPLVU9969-97-23 06:44:00 Test Item Value Reference Range Interpretation Comments RBC (test code = RBC) 3.72 4.20-5.40 [facility] GladwinVfhstwlAPPFATGVPP7586-54-83 06:44:00 Test Item Value Reference Range Interpretation Comments Hgb (test code = Hgb) 8.1 12.0-16.0 [facility]fieldHvbcycnKYTAUUPIFQ6413-21-74 06:44:00 Test Item Value Reference Range Interpretation Comments PTT (test code = PTT) 27.2 s 22.9-35.8 [facility]fieldTkbjscqPKNLCHJAOJ6054-71-11 06:44:00 Test Item Value Reference Range Interpretation Comments PT (test code = PT) 14.7 s 12.0-14.7 [facility] GladwinYkzmrxdLGGZFMTYAK2303-22-66 06:44:00 Test Item Value Reference Range Interpretation Comments INR (test code = INR) 1.12 0.85-1.17 [facility] [employer] BANK [id number] 06:44:00 Test Item Value Reference Range Interpretation Comments Antibody Scrn (test Negative (02/13/16 1:44 code = Antibody Scrn) AM) [facility] [employer] [facility] [id number] 06:44:00 Test Item Value Reference Range Interpretation Comments ABO/Rh (test code = ABO/Rh) A POS [facility]iscoannCARDIAC [id number] 06:44:00 Test Item Value Reference Range Interpretation Comments CK MB Index (test 1.6 See_Comment [Automate d message] The code = CK MB Index) system w [facility] generated this result transmit gaye reference range : <=2.5. The reference range was not used to interpr et this result as satish l/abnormal. [facility]iscoTurn[facility] [id number] 06:44:00 Test Item Value Reference Range Interpretation Comments CK MB (test code = CK MB) 0.9 0.5-3.6 [facility]fieldFrogdice [id number] 06:44:00 Test Item Value Reference Range Interpretation Comments Total CK (test code = Total CK) 57 12-191 [facility]fieldFrogdice [id number] 06:44:00 Test Item Value Reference Range Interpretation Comments Troponin-I (test code no gt See_Comment [Auto mated message] The = Troponin-I) system which g enerated this result transmit gaye reference range : <=0.40. The reference r ozzy was not used to interpr et this result as satish l/abnormal. [facility] [employer] [id number] 06:44:00 Test Item Value Reference Range Interpretation Comments Albumin Lvl (test code = Albumin Lvl) 3.5 3.5-5.0 [facility] [employer] [id number] 06:44:00 Test Item Value Reference Range Interpretation Comments Total Protein (test code = Total 7.0 6.4-8.4 Protein) [facility] [employer] [id number] 06:44:00 Test Item Value Reference Range Interpretation Comments ALT (test code = ALT) 19 See_Comment [Auto mated message] The system which ge nerated this result transmit gaye reference range : <=65. The reference range was not used to interpr et this result as satish l/abnormal. [facility] [employer] [id number] 06:44:00 Test Item Value Reference Range Interpretation Comments AST (test code = AST) 10 See_Comment [Auto mated message] The system which ge nerated this result transmit gaye reference range : <=37. The reference range was not used to interpr et this result as satish l/abnormal. [facility] [employer] [id number] 06:44:00 Test Item Value Reference Range Interpretation Comments Alk Phos (test code = Alk Phos) 79 39-136 [facility] [employer] [id number] 06:44:00 Test Item Value Reference Range Interpretation Comments Bili Total (test code = Bili Total) 0.4 0.2-1.3 [facility]2016-07-03 06:44:00 Test Item Value Reference Range Interpretation Comments Bili Direct (test code 0.1 See_Comment [Aut omated message] The = Bili Direct) system which generated this result tra nsmitted reference range : <=0.3. The reference r ozzy was not used to int erpret this result as satish l/abnormal. [facility]2016-07-03 06:44:00 Test Item Value Reference Range Interpretation Comments Globulin (test code = Globulin) 3.5 2.0-4.0 [place] [id number] 06:44:00 Test Item Value Reference Range Interpretation Comments A/G Ratio (test code = A/G Ratio) 1.0 0.7-1.6 [place] [id number] 06:44:00 Test Item Value Reference Range Interpretation Comments Bili Indirect (test 0.3 See_Comment [Automa gaye message] The code = Bili Indirect) system which generated this result tra nsmitted reference range : <=1.0. The reference r ozzy was not used to int erpret this result as normal/abnormal . [facility]2016-07-03 06:44:00 Test Item Value Reference Range Interpretation Comments eGFR (test code = eGFR) 107 [facility]2016-07-03 06:44:00 Test Item Value Reference Range Interpretation Comments BUN (test code = BUN) 8 7-22 [facility]2016-07-03 06:44:00 Test Item Value Reference Range Interpretation Comments Glucose Lvl (test code = Glucose Lvl) 91 70-99 [facility]2016-07-03 06:44:00 Test Item Value Reference Range Interpretation Comments Sodium Lvl (test code = Sodium Lvl) 138 135-145 [facility]2016-07-03 06:44:00 Test Item Value Reference Range Interpretation Comments Creatinine Lvl (test code = Creatinine 0.70 0.50-1.40 Lvl) [facility]2016-07-03 06:44:00 Test Item Value Reference Range Interpretation Comments Potassium Lvl (test code = Potassium 3.3 3.5-5.1 Lvl) [facility]2016-07-03 06:44:00 Test Item Value Reference Range Interpretation Comments CO2 (test code = CO2) 25 24-32 [facility]2016-07-03 06:44:00 Test Item Value Reference Range Interpretation Comments Chloride Lvl (test code = Chloride Lvl) 106 95-109 [facility]2016-07-03 06:44:00 Test Item Value Reference Range Interpretation Comments Calcium Lvl (test code = Calcium Lvl) 8.1 8.5-10.5 [facility]2016-07-03 06:44:00 Test Item Value Reference Range Interpretation Comments AGAP (test code = AGAP) 10.3 10.0-20.0 [facility]2016-07-03 06:44:00 Test Item Value Reference Range Interpretation Comments Magnesium Lvl (test code = Magnesium 2.2 1.8-2.4 Lvl) [place] [id number] 06:44:00 Test Item Value Reference Range Interpretation Comments S Preg (test code = S Negative *NA*(02/13/16 Preg) 1:44 AM) [facility] HospitalKpogpviABMXVIOZTX0532-69-05 06:44:00 Test Item Value Reference Range Interpretation Comments Basophils (test code = 0.1 See_Comment [Aut omated message] The Basophils) system which ge nerated this result tra nsmitted reference range : <=1.0. The reference r ozzy was not used to int erpret this result as normal/abnormal . [facility] HospitalAliepiiPXFTHNMTYL2179-55-97 06:44:00 Test Item Value Reference Range Interpretation Comments Monocytes # (test code 0.3 See_Comment [Aut omated message] The = Monocytes #) system which generated this result tra nsmitted reference range : <=0.8. The reference r ozzy was not used to int erpret this result as normal/abnormal . [facility] HospitalPohjmblJLYBXDRRFW2080-34-50 06:44:00 Test Item Value Reference Range Interpretation Comments Eosinophils # (test code 0.1 See_Comment [A utomated message] The = Eosinophils #) system whic h generated this result tra nsmitted reference range : <=0.5. The reference r ozzy was not used to int erpret this result as normal/abnormal . [facility] HospitalCclsntgELISWYMGOJ9765-85-65 06:44:00 Test Item Value Reference Range Interpretation Comments Segs-Bands # (test code = Segs-Bands #) 9.3 1.5-8.1 [facility] HospitalWgtopjhWTTJTIEKGE7541-43-51 06:44:00 Test Item Value Reference Range Interpretation Comments Lymphocytes # (test code = Lymphocytes 2.6 1.0-5.5 #) [facility] HospitalDekztraHCTDBEOZIS1970-34-41 06:44:00 Test Item Value Reference Range Interpretation Comments Basophils # (test code 0.0 See_Comment [Aut omated message] The = Basophils #) system which generated this result tra nsmitted reference range : <=0.2. The reference r ozzy was not used to int erpret this result as normal/abnormal . [facility] HospitalJsmvequMEGQKBKIFS6808-04-50 06:44:00 Test Item Value Reference Range Interpretation Comments Microcyte (test code = 1+ *ABN*(02/13/16 1:44 Microcyte) AM) [facility] HospitalFoghtgkXHIWDNIIPB7594-84-69 06:44:00 Test Item Value Reference Range Interpretation Comments Giant Plt (test code Moderate *ABN*(02/13/16 = Giant Plt) 1:44 AM) [facility] HospitalZrxpqjbIUAMITRSYX5883-68-40 06:44:00 Test Item Value Reference Range Interpretation Comments Segs (test code = Segs) 75.2 45.0-75.0 [facility] HospitalHkudmkcYNFUZHZWQK9306-13-84 06:44:00 Test Item Value Reference Range Interpretation Comments Hypochrom (test code = 1+ (02/13/16 1:44 AM) Hypochrom) [facility] HospitalUyrngvcNUZQVJHSAM9225-29-45 06:44:00 Test Item Value Reference Range Interpretation Comments Eosinophils (test code = 0.7 See_Comment [A utomated message] The Eosinophils) system which ge nerated this result tra nsmitted reference range : <=4.0. The reference r ozzy was not used to int erpret this result as normal/abnormal . [facility] HospitalKgvaxqxTXLOYTLHSO3220-48-89 06:44:00 Test Item Value Reference Range Interpretation Comments Lymphocytes (test code = Lymphocytes) 21.3 20.0-40.0 [facility] HospitalRqlgsadDGSXNKEFRS1021-22-86 06:44:00 Test Item Value Reference Range Interpretation Comments Monocytes (test code = Monocytes) 2.7 2.0-12.0 [facility] HospitalHuxggtxXVCYMQUYQS1721-89-74 06:44:00 Test Item Value Reference Range Interpretation Comments MPV (test code = MPV) 9.5 7.4-10.4 [facility] HospitalNtlxgjeFZYGKEDGNQ4331-85-13 06:44:00 Test Item Value Reference Range Interpretation Comments RDW (test code = RDW) 17.8 11.5-14.5 [facility] HospitalBrspmbtVLLOSSOMMC8501-48-74 06:44:00 Test Item Value Reference Range Interpretation Comments MCV (test code = MCV) 73.2 80.0-98.0 [facility] HospitalRgldjevHEDRRGHTUN4257-87-61 06:44:00 Test Item Value Reference Range Interpretation Comments MCH (test code = MCH) 21.9 pg 27.0-31.0 [facility] HospitalWycesugLYDMMBUWUR6918-49-42 06:44:00 Test Item Value Reference Range Interpretation Comments Hct (test code = Hct) 27.2 36.0-48.0 [facility] HospitalInifzaxNCSXVBSAHY2048-73-11 06:44:00 Test Item Value Reference Range Interpretation Comments MCHC (test code = MCHC) 29.9 32.0-36.0 [facility] HospitalDtydydqCNQDBNNROI6243-05-96 06:44:00 Test Item Value Reference Range Interpretation Comments Platelet (test code = Platelet) 400 133-450 [facility] HospitalQtrkfexLRKCFTGZXP3330-18-97 06:44:00 Test Item Value Reference Range Interpretation Comments WBC (test code = WBC) 12.4 3.7-10.4 [facility] HospitalRfccawoLGWLENXDYA5434-96-71 06:44:00 Test Item Value Reference Range Interpretation Comments RBC (test code = RBC) 3.72 4.20-5.40 [facility] HospitalAfcambhNJYEDCFRVP0462-37-85 06:44:00 Test Item Value Reference Range Interpretation Comments Hgb (test code = Hgb) 8.1 12.0-16.0 [facility] HospitalDdwdvuvGLEUKZWKSY2639-22-69 06:44:00 Test Item Value Reference Range Interpretation Comments PTT (test code = PTT) 27.2 s 22.9-35.8 [facility] HospitalVvrutdvIFPARCXMTW0588-24-60 06:44:00 Test Item Value Reference Range Interpretation Comments PT (test code = PT) 14.7 s 12.0-14.7 [facility] HospitalFzmpfjdIMKRENLJMS6104-11-40 06:44:00 Test Item Value Reference Range Interpretation Comments INR (test code = INR) 1.12 0.85-1.17 [employer] [id number] 06:44:00 Test Item Value Reference Range Interpretation Comments Antibody Scrn (test Negative (02/13/16 1:44 code = Antibody Scrn) AM) [employer] [id number] 06:44:00 Test Item Value Reference Range Interpretation Comments ABO/Rh (test code = ABO/Rh) A POS [employer] [id number] 06:44:00 Test Item Value Reference Range Interpretation Comments CK MB Index (test 1.6 See_Comment [Automate d message] The code = CK MB Index) system w [facility] generated this result transmit gaye reference range : <=2.5. The reference range was not used to interpr et this result as satish l/abnormal. [facility] [employer] [facility]2016-07-03 06:44:00 Test Item Value Reference Range Interpretation Comments CK MB (test code = CK MB) 0.9 0.5-3.6 [facility]2016-07-03 06:44:00 Test Item Value Reference Range Interpretation Comments Total CK (test code = Total CK) 57 12-191 [facility] [employer] [facility]2016-07-03 06:44:00 Test Item Value Reference Range Interpretation Comments Troponin-I (test code no gt See_Comment [Auto mated message] The = Troponin-I) system which g enerated this result transmit gaye reference range : <=0.40. The reference r ozzy was not used to interpr et this result as satish l/abnormal. [employer] [id number] 06:44:00 Test Item Value Reference Range Interpretation Comments Albumin Lvl (test code = Albumin Lvl) 3.5 3.5-5.0 [facility] [employer] [id number] 06:44:00 Test Item Value Reference Range Interpretation Comments Total Protein (test code = Total 7.0 6.4-8.4 Protein) [employer] [id number] 06:44:00 Test Item Value Reference Range Interpretation Comments ALT (test code = ALT) 19 See_Comment [Auto mated message] The system which ge nerated this result transmit gaye reference range : <=65. The reference range was not used to interpr et this result as satish l/abnormal. [place] 899676-07-03 06:44:00 Test Item Value Reference Range Interpretation Comments AST (test code = AST) 10 See_Comment [Auto mated message] The system which ge nerated this result transmit gaye reference range : <=37. The reference range was not used to interpr et this result as satish l/abnormal. [place] 899676-07-03 06:44:00 Test Item Value Reference Range Interpretation Comments Alk Phos (test code = Alk Phos) 79 39-136 [place] 899676-07-03 06:44:00 Test Item Value Reference Range Interpretation Comments Bili Total (test code = Bili Total) 0.4 0.2-1.3 [place] 899676-07-03 06:44:00 Test Item Value Reference Range Interpretation Comments Bili Direct (test code 0.1 See_Comment [Aut omated message] The = Bili Direct) system which generated this result tra nsmitted reference range : <=0.3. The reference r ozzy was not used to int erpret this result as satihs l/abnormal. [place] 899676-07-03 06:44:00 Test Item Value Reference Range Interpretation Comments Globulin (test code = Globulin) 3.5 2.0-4.0 [place] 899676-07-03 06:44:00 Test Item Value Reference Range Interpretation Comments A/G Ratio (test code = A/G Ratio) 1.0 0.7-1.6 [place] 899676-07-03 06:44:00 Test Item Value Reference Range Interpretation Comments Bili Indirect (test 0.3 See_Comment [Automa gaye message] The code = Bili Indirect) system which generated this result tra nsmitted reference range : <=1.0. The reference r ozzy was not used to int erpret this result as normal/abnormal . [facility]2016-07-03 06:44:00 Test Item Value Reference Range Interpretation Comments eGFR (test code = eGFR) 107 [place] 899676-07-03 06:44:00 Test Item Value Reference Range Interpretation Comments BUN (test code = BUN) 8 7-22 [place] 899676-07-03 06:44:00 Test Item Value Reference Range Interpretation Comments Glucose Lvl (test code = Glucose Lvl) 91 70-99 [facility]2016-07-03 06:44:00 Test Item Value Reference Range Interpretation Comments Sodium Lvl (test code = Sodium Lvl) 138 135-145 [facility]2016-07-03 06:44:00 Test Item Value Reference Range Interpretation Comments Creatinine Lvl (test code = Creatinine 0.70 0.50-1.40 Lvl) [facility]2016-07-03 06:44:00 Test Item Value Reference Range Interpretation Comments Potassium Lvl (test code = Potassium 3.3 3.5-5.1 Lvl) [facility]2016-07-03 06:44:00 Test Item Value Reference Range Interpretation Comments CO2 (test code = CO2) 25 24-32 [facility]2016-07-03 06:44:00 Test Item Value Reference Range Interpretation Comments Chloride Lvl (test code = Chloride Lvl) 106 95-109 [facility]2016-07-03 06:44:00 Test Item Value Reference Range Interpretation Comments Calcium Lvl (test code = Calcium Lvl) 8.1 8.5-10.5 [facility]2016-07-03 06:44:00 Test Item Value Reference Range Interpretation Comments AGAP (test code = AGAP) 10.3 10.0-20.0 [facility]2016-07-03 06:44:00 Test Item Value Reference Range Interpretation Comments Magnesium Lvl (test code = Magnesium 2.2 1.8-2.4 Lvl) [facility]kinRafoamzBWAZUMGZGBMGK5246-45-58 06:44:00 Test Item Value Reference Range Interpretation Comments S Preg (test code = S Negative *NA*(02/13/16 Preg) 1:44 AM) [facility] HospitalXqkhttnGBVZQBKCVG3256-95-48 06:44:00 Test Item Value Reference Range Interpretation Comments Basophils (test code = 0.1 See_Comment [Aut omated message] The Basophils) system which ge nerated this result tra nsmitted reference range : <=1.0. The reference r ozzy was not used to int erpret this result as normal/abnormal . [facility] HospitalMncrnpwQRYRGNMSEP6729-09-79 06:44:00 Test Item Value Reference Range Interpretation Comments Monocytes # (test code 0.3 See_Comment [Aut omated message] The = Monocytes #) system which generated this result tra nsmitted reference range : <=0.8. The reference r ozzy was not used to int erpret this result as normal/abnormal . [facility] HospitalOuqidteYNMKXVNTZJ7730-12-54 06:44:00 Test Item Value Reference Range Interpretation Comments Eosinophils # (test code 0.1 See_Comment [A utomated message] The = Eosinophils #) system whic h generated this result tra nsmitted reference range : <=0.5. The reference r ozzy was not used to int erpret this result as normal/abnormal . [facility] HospitalCnrovbsWHSLEZPJTR5135-19-20 06:44:00 Test Item Value Reference Range Interpretation Comments Segs-Bands # (test code = Segs-Bands #) 9.3 1.5-8.1 [facility] HospitalHfxpiuoSLWBKMGGDV4651-06-31 06:44:00 Test Item Value Reference Range Interpretation Comments Lymphocytes # (test code = Lymphocytes 2.6 1.0-5.5 #) [facility] HospitalLndhwqlTBLRYXPQPC1737-39-93 06:44:00 Test Item Value Reference Range Interpretation Comments Basophils # (test code 0.0 See_Comment [Aut omated message] The = Basophils #) system which generated this result tra nsmitted reference range : <=0.2. The reference r ozzy was not used to int erpret this result as normal/abnormal . [facility] HospitalNrnizkbHCEZFYWTEF8476-25-24 06:44:00 Test Item Value Reference Range Interpretation Comments Microcyte (test code = 1+ *ABN*(02/13/16 1:44 Microcyte) AM) [facility] HospitalQjbvtlgMWLEIQFCEX2129-01-64 06:44:00 Test Item Value Reference Range Interpretation Comments Giant Plt (test code Moderate *ABN*(02/13/16 = Giant Plt) 1:44 AM) [facility] HospitalOkhisljRCJFMRINFV4280-56-39 06:44:00 Test Item Value Reference Range Interpretation Comments Segs (test code = Segs) 75.2 45.0-75.0 [facility] HospitalNestdcxKBINXYKKZU2580-04-65 06:44:00 Test Item Value Reference Range Interpretation Comments Hypochrom (test code = 1+ (02/13/16 1:44 AM) Hypochrom) [facility] HospitalMdjpzisNMZOZFTMUS3357-33-46 06:44:00 Test Item Value Reference Range Interpretation Comments Eosinophils (test code = 0.7 See_Comment [A utomated message] The Eosinophils) system which ge nerated this result tra nsmitted reference range : <=4.0. The reference r ozzy was not used to int erpret this result as normal/abnormal . [facility] HospitalAfzttlqQRFHFJKUVG7124-67-71 06:44:00 Test Item Value Reference Range Interpretation Comments Lymphocytes (test code = Lymphocytes) 21.3 20.0-40.0 [facility] HospitalLyrncbzZLRLDYSNGB9119-64-90 06:44:00 Test Item Value Reference Range Interpretation Comments Monocytes (test code = Monocytes) 2.7 2.0-12.0 [facility] HospitalZjdqisuKIGOSWVFZO4712-59-75 06:44:00 Test Item Value Reference Range Interpretation Comments MPV (test code = MPV) 9.5 7.4-10.4 [facility] HospitalEpblbnjOAFHDDJOUJ9001-74-92 06:44:00 Test Item Value Reference Range Interpretation Comments RDW (test code = RDW) 17.8 11.5-14.5 [facility] HospitalYimltekBMVKUVFNTX8417-42-71 06:44:00 Test Item Value Reference Range Interpretation Comments MCV (test code = MCV) 73.2 80.0-98.0 [facility] HospitalFandplsGHROWNEWBN7554-15-36 06:44:00 Test Item Value Reference Range Interpretation Comments MCH (test code = MCH) 21.9 pg 27.0-31.0 [facility] HospitalOstsnlnOFGNXTCFTQ3714-58-96 06:44:00 Test Item Value Reference Range Interpretation Comments Hct (test code = Hct) 27.2 36.0-48.0 [facility] HospitalYkcldjoTRQGUPXSWH7586-50-66 06:44:00 Test Item Value Reference Range Interpretation Comments MCHC (test code = MCHC) 29.9 32.0-36.0 [facility] HospitalMmhexryGKKCXGNIJU3016-51-24 06:44:00 Test Item Value Reference Range Interpretation Comments Platelet (test code = Platelet) 400 133-450 [facility] HospitalVdcvygyFIOKKEXKFD8514-06-18 06:44:00 Test Item Value Reference Range Interpretation Comments WBC (test code = WBC) 12.4 3.7-10.4 [facility] HospitalAewdodlPEDTBEKZEP7719-29-78 06:44:00 Test Item Value Reference Range Interpretation Comments RBC (test code = RBC) 3.72 4.20-5.40 [employer] NetworkIonkfckJLNDAEIKHX1860-94-94 06:44:00 Test Item Value Reference Range Interpretation Comments Hgb (test code = Hgb) 8.1 12.0-16.0 [employer] NetworkKfrtiuoSBSNQCAGTC2075-48-19 06:44:00 Test Item Value Reference Range Interpretation Comments PTT (test code = PTT) 27.2 s 22.9-35.8 [employer] NetworkYwbwchnUYKVHRUKWT0147-89-86 06:44:00 Test Item Value Reference Range Interpretation Comments PT (test code = PT) 14.7 s 12.0-14.7 [employer] NetworkPbwhswzAKBHKCIXEW4789-32-01 06:44:00 Test Item Value Reference Range Interpretation Comments INR (test code = INR) 1.12 0.85-1.17 [employer] [id number] 06:44:00 Test Item Value Reference Range Interpretation Comments Antibody Scrn (test Negative (02/13/16 1:44 code = Antibody Scrn) AM) [employer] [id number] 06:44:00 Test Item Value Reference Range Interpretation Comments ABO/Rh (test code = ABO/Rh) A POS [employer] [id number] 06:44:00 Test Item Value Reference Range Interpretation Comments CK MB Index (test code = CK MB Index) 1.6 <=2.5 [facility]2016-07-03 06:44:00 Test Item Value Reference Range Interpretation Comments CK MB (test code = CK MB) 0.9 0.5-3.6 [facility]2016-07-03 06:44:00 Test Item Value Reference Range Interpretation Comments Total CK (test code = Total CK) 57 12-191 [facility]2016-07-03 06:44:00 Test Item Value Reference Range Interpretation Comments Troponin-I (test code = Troponin-I) no gt <=0.40 [employer] [id number] 06:44:00 Test Item Value Reference Range Interpretation Comments Albumin Lvl (test code = Albumin Lvl) 3.5 3.5-5.0 [facility]2016-07-03 06:44:00 Test Item Value Reference Range Interpretation Comments Total Protein (test code = Total 7.0 6.4-8.4 Protein) [facility]2016-07-03 06:44:00 Test Item Value Reference Range Interpretation Comments ALT (test code = ALT) 19 <=65 [facility]2016-07-03 06:44:00 Test Item Value Reference Range Interpretation Comments AST (test code = AST) 10 <=37 [facility]2016-07-03 06:44:00 Test Item Value Reference Range Interpretation Comments Alk Phos (test code = Alk Phos) 79 39-136 [facility]2016-07-03 06:44:00 Test Item Value Reference Range Interpretation Comments Bili Total (test code = Bili Total) 0.4 0.2-1.3 [facility]2016-07-03 06:44:00 Test Item Value Reference Range Interpretation Comments Bili Direct (test code = Bili Direct) 0.1 <=0.3 [facility]2016-07-03 06:44:00 Test Item Value Reference Range Interpretation Comments Globulin (test code = Globulin) 3.5 2.0-4.0 [facility]2016-07-03 06:44:00 Test Item Value Reference Range Interpretation Comments A/G Ratio (test code = A/G Ratio) 1.0 0.7-1.6 [facility]2016-07-03 06:44:00 Test Item Value Reference Range Interpretation Comments Bili Indirect (test code = Bili 0.3 <=1.0 Indirect) [facility]2016-07-03 06:44:00 Test Item Value Reference Range Interpretation Comments eGFR (test code = eGFR) 107 [facility]2016-07-03 06:44:00 Test Item Value Reference Range Interpretation Comments BUN (test code = BUN) 8 7-22 [facility]2016-07-03 06:44:00 Test Item Value Reference Range Interpretation Comments Glucose Lvl (test code = Glucose Lvl) 91 70-99 [facility]2016-07-03 06:44:00 Test Item Value Reference Range Interpretation Comments Sodium Lvl (test code = Sodium Lvl) 138 135-145 [facility]2016-07-03 06:44:00 Test Item Value Reference Range Interpretation Comments Creatinine Lvl (test code = Creatinine 0.70 0.50-1.40 Lvl) [facility]2016-07-03 06:44:00 Test Item Value Reference Range Interpretation Comments Potassium Lvl (test code = Potassium 3.3 3.5-5.1 Lvl) [facility]2016-07-03 06:44:00 Test Item Value Reference Range Interpretation Comments CO2 (test code = CO2) 25 24-32 [facility]2016-07-03 06:44:00 Test Item Value Reference Range Interpretation Comments Chloride Lvl (test code = Chloride Lvl) 106 95-109 [facility]2016-07-03 06:44:00 Test Item Value Reference Range Interpretation Comments Calcium Lvl (test code = Calcium Lvl) 8.1 8.5-10.5 [facility]2016-07-03 06:44:00 Test Item Value Reference Range Interpretation Comments AGAP (test code = AGAP) 10.3 10.0-20.0 [facility]2016-07-03 06:44:00 Test Item Value Reference Range Interpretation Comments Magnesium Lvl (test code = Magnesium 2.2 1.8-2.4 Lvl) [facility]B[id number] 06:44:00 Test Item Value Reference Range Interpretation Comments S Preg (test code = S Negative *NA*(02/13/16 Preg) 1:44 AM) [facility]UEDYY1636-61-83 06:44:00 Test Item Value Reference Range Interpretation Comments Basophils (test code = Basophils) 0.1 <=1.0 [facility]RgmgyaiUMMQFBWQUQ0417-96-61 06:44:00 Test Item Value Reference Range Interpretation Comments Monocytes # (test code = Monocytes #) 0.3 <=0.8 [facility] HospitalEddilxrIKTWXSZOYY8493-98-47 06:44:00 Test Item Value Reference Range Interpretation Comments Eosinophils # (test code = Eosinophils 0.1 <=0.5 #) [facility] HospitalPafljxzOLNHJGENLJ9367-63-71 06:44:00 Test Item Value Reference Range Interpretation Comments Segs-Bands # (test code = Segs-Bands #) 9.3 1.5-8.1 [facility] HospitalTloojbfNBERIPHNTE8622-07-38 06:44:00 Test Item Value Reference Range Interpretation Comments Lymphocytes # (test code = Lymphocytes 2.6 1.0-5.5 #) [facility] HospitalFwjpbpwDXVXCTTBDL8125-66-97 06:44:00 Test Item Value Reference Range Interpretation Comments Basophils # (test code = Basophils #) 0.0 <=0.2 [facility] HospitalZiwnhmuYNZCEKZRKE5304-67-05 06:44:00 Test Item Value Reference Range Interpretation Comments Microcyte (test code = 1+ *ABN*(02/13/16 1:44 Microcyte) AM) [facility] HospitalLaigqtkOFKVQYXJOP6169-50-77 06:44:00 Test Item Value Reference Range Interpretation Comments Giant Plt (test code Moderate *ABN*(02/13/16 = Giant Plt) 1:44 AM) [facility] HospitalBuwakriFHTTVTTDZO6082-88-13 06:44:00 Test Item Value Reference Range Interpretation Comments Segs (test code = Segs) 75.2 45.0-75.0 [facility] HospitalEougenoQEZWZJXFMU0551-58-82 06:44:00 Test Item Value Reference Range Interpretation Comments Hypochrom (test code = 1+ (02/13/16 1:44 AM) Hypochrom) [facility] HospitalOjvzsmmDARAMSPQRA7007-41-26 06:44:00 Test Item Value Reference Range Interpretation Comments Eosinophils (test code = Eosinophils) 0.7 <=4.0 [facility] HospitalTnuvgfwPRJPSOEIUL4456-52-32 06:44:00 Test Item Value Reference Range Interpretation Comments Lymphocytes (test code = Lymphocytes) 21.3 20.0-40.0 [facility] HospitalBecbaaoBZCGUWVTGT7828-59-65 06:44:00 Test Item Value Reference Range Interpretation Comments Monocytes (test code = Monocytes) 2.7 2.0-12.0 [facility] HospitalRmsamhyFMTTBWUWLB8821-04-75 06:44:00 Test Item Value Reference Range Interpretation Comments MPV (test code = MPV) 9.5 7.4-10.4 [facility] HospitalVdugyuuPSMBEEGDNN8708-82-14 06:44:00 Test Item Value Reference Range Interpretation Comments RDW (test code = RDW) 17.8 11.5-14.5 [facility] HospitalMumdygrNXGDEOZVDA2038-59-69 06:44:00 Test Item Value Reference Range Interpretation Comments MCV (test code = MCV) 73.2 80.0-98.0 [facility] HospitalCzyhbguCPSBQJVBQL8085-27-73 06:44:00 Test Item Value Reference Range Interpretation Comments MCH (test code = MCH) 21.9 pg 27.0-31.0 [facility] HospitalWabrrioMLIKWHVQHY1979-12-50 06:44:00 Test Item Value Reference Range Interpretation Comments Hct (test code = Hct) 27.2 36.0-48.0 [facility] HospitalHlcfzkpEXUANPXGSY8971-44-53 06:44:00 Test Item Value Reference Range Interpretation Comments MCHC (test code = MCHC) 29.9 32.0-36.0 [facility] HospitalWchduwsUVAJPORQVV9597-33-33 06:44:00 Test Item Value Reference Range Interpretation Comments Platelet (test code = Platelet) 400 133-450 [facility] HospitalUvwobzeZJCCTKJGIF1662-35-27 06:44:00 Test Item Value Reference Range Interpretation Comments WBC (test code = WBC) 12.4 3.7-10.4 [facility] HospitalItcbgwkWIFBJUVVSB3555-28-78 06:44:00 Test Item Value Reference Range Interpretation Comments RBC (test code = RBC) 3.72 4.20-5.40 [facility]GD6521[facility]51-66 06:44:00 Test Item Value Reference Range Interpretation Comments Hgb (test code = Hgb) 8.1 12.0-16.0 [facility]fieldLtpnsqfRTLPIRNIII1812-18-15 06:44:00 Test Item Value Reference Range Interpretation Comments PTT (test code = PTT) 27.2 s 22.9-35.8 [facility]fieldCbsovsaCCBPFVZOQD6088-46-38 06:44:00 Test Item Value Reference Range Interpretation Comments PT (test code = PT) 14.7 s 12.0-14.7 [facility] HospitalEirtdwzAGLAYRAKPM2053-23-22 06:44:00 Test Item Value Reference Range Interpretation Comments INR (test code = INR) 1.12 0.85-1.17 [facility] [id number] 06:44:00 Test Item Value Reference Range Interpretation Comments Antibody Scrn (test Negative (02/13/16 1:44 code = Antibody Scrn) AM) [facility] [id number] 06:44:00 Test Item Value Reference Range Interpretation Comments ABO/Rh (test code = ABO/Rh) A [facility] [id number] 06:44:00 Test Item Value Reference Range Interpretation Comments CK MB Index (test 1.6 See_Comment [Automate d message] The code = CK MB Index) system w [facility] generated this result transmit gaye reference range : <=2.5. The reference range was not used to interpr et this result as satish l/abnormal. [facility] [employer] [id number] 06:44:00 Test Item Value Reference Range Interpretation Comments CK MB (test code = CK MB) 0.9 0.5-3.6 [facility] [employer] [id number] 06:44:00 Test Item Value Reference Range Interpretation Comments Total CK (test code = Total CK) 57 12-191 [facility] [employer] [id number] 06:44:00 Test Item Value Reference Range Interpretation Comments Troponin-I (test code no gt See_Comment [Auto mated message] The = Troponin-I) system which g enerated this result transmit gaye reference range : <=0.40. The reference r ozzy was not used to interpr et this result as satish l/abnormal. [employer] [id number] 06:44:00 Test Item Value Reference Range Interpretation Comments Albumin Lvl (test code = Albumin Lvl) 3.5 3.5-5.0 [facility] [employer] [id number] 06:44:00 Test Item Value Reference Range Interpretation Comments Total Protein (test code = Total 7.0 6.4-8.4 Protein) [facility] [employer] [id number] 06:44:00 Test Item Value Reference Range Interpretation Comments ALT (test code = ALT) 19 See_Comment [Auto mated message] The system which ge nerated this result transmit gaye reference range : <=65. The reference range was not used to interpr et this result as satish l/abnormal. [employer] [id number] 06:44:00 Test Item Value Reference Range Interpretation Comments AST (test code = AST) 10 See_Comment [Auto mated message] The system which ge nerated this result transmit gaye reference range : <=37. The reference range was not used to interpr et this result as satish l/abnormal. [employer])2016-07-03 06:44:00 Test Item Value Reference Range Interpretation Comments Alk Phos (test code = Alk Phos) 79 39-136 [facility]2016-07-03 06:44:00 Test Item Value Reference Range Interpretation Comments Bili Total (test code = Bili Total) 0.4 0.2-1.3 [facility]2016-07-03 06:44:00 Test Item Value Reference Range Interpretation Comments Bili Direct (test code 0.1 See_Comment [Aut omated message] The = Bili Direct) system which generated this result tra nsmitted reference range : <=0.3. The reference r ozzy was not used to int erpret this result as satish l/abnormal. [facility]2016-07-03 06:44:00 Test Item Value Reference Range Interpretation Comments Globulin (test code = Globulin) 3.5 2.0-4.0 [place] 899676-07-03 06:44:00 Test Item Value Reference Range Interpretation Comments A/G Ratio (test code = A/G Ratio) 1.0 0.7-1.6 [place] 899676-07-03 06:44:00 Test Item Value Reference Range Interpretation Comments Bili Indirect (test 0.3 See_Comment [Automa gaye message] The code = Bili Indirect) system which generated this result tra nsmitted reference range : <=1.0. The reference r ozzy was not used to int erpret this result as normal/abnormal . [facility]2016-07-03 06:44:00 Test Item Value Reference Range Interpretation Comments eGFR (test code = eGFR) 107 [facility]2016-07-03 06:44:00 Test Item Value Reference Range Interpretation Comments BUN (test code = BUN) 8 7-22 [place] 899676-07-03 06:44:00 Test Item Value Reference Range Interpretation Comments Glucose Lvl (test code = Glucose Lvl) 91 70-99 [facility]2016-07-03 06:44:00 Test Item Value Reference Range Interpretation Comments Sodium Lvl (test code = Sodium Lvl) 138 135-145 [place] 899676-07-03 06:44:00 Test Item Value Reference Range Interpretation Comments Creatinine Lvl (test code = Creatinine 0.70 0.50-1.40 Lvl) [facility]2016-07-03 06:44:00 Test Item Value Reference Range Interpretation Comments Potassium Lvl (test code = Potassium 3.3 3.5-5.1 Lvl) [facility]2016-07-03 06:44:00 Test Item Value Reference Range Interpretation Comments CO2 (test code = CO2) 25 24-32 [place] 899676-07-03 06:44:00 Test Item Value Reference Range Interpretation Comments Chloride Lvl (test code = Chloride Lvl) 106 95-109 [place] 899676-07-03 06:44:00 Test Item Value Reference Range Interpretation Comments Calcium Lvl (test code = Calcium Lvl) 8.1 8.5-10.5 [facility]2016-07-03 06:44:00 Test Item Value Reference Range Interpretation Comments AGAP (test code = AGAP) 10.3 10.0-20.0 [facility]2016-07-03 06:44:00 Test Item Value Reference Range Interpretation Comments Magnesium Lvl (test code = Magnesium 2.2 1.8-2.4 Lvl) [facility]kinVsflvkoMUCSXIDEWDEAQ4323-88-89 06:44:00 Test Item Value Reference Range Interpretation Comments S Preg (test code = S Negative *NA*(02/13/16 Preg) 1:44 AM) [facility] HospitalVxzxmdbCHYWDVFTKS8630-37-66 06:44:00 Test Item Value Reference Range Interpretation Comments Basophils (test code = 0.1 See_Comment [Aut omated message] The Basophils) system which ge nerated this result tra nsmitted reference range : <=1.0. The reference r ozzy was not used to int erpret this result as normal/abnormal . [facility] HospitalLjzlyfoSSNRVXTTPR8626-94-97 06:44:00 Test Item Value Reference Range Interpretation Comments Monocytes # (test code 0.3 See_Comment [Aut omated message] The = Monocytes #) system which generated this result tra nsmitted reference range : <=0.8. The reference r ozzy was not used to int erpret this result as normal/abnormal . [facility] HospitalYdeesdaZKLNFHPOPQ8947-10-77 06:44:00 Test Item Value Reference Range Interpretation Comments Eosinophils # (test code 0.1 See_Comment [A utomated message] The = Eosinophils #) system whic h generated this result tra nsmitted reference range : <=0.5. The reference r ozzy was not used to int erpret this result as normal/abnormal . [facility] HospitalNgvgnmiUQQVNLLABP3378-42-45 06:44:00 Test Item Value Reference Range Interpretation Comments Segs-Bands # (test code = Segs-Bands #) 9.3 1.5-8.1 [facility] HospitalRzbkjfsHMKSIEIJXZ1212-38-61 06:44:00 Test Item Value Reference Range Interpretation Comments Lymphocytes # (test code = Lymphocytes 2.6 1.0-5.5 #) [facility] HospitalYtqdivwIMUAPKPONF0680-08-00 06:44:00 Test Item Value Reference Range Interpretation Comments Basophils # (test code 0.0 See_Comment [Aut omated message] The = Basophils #) system which generated this result tra nsmitted reference range : <=0.2. The reference r ozzy was not used to int erpret this result as normal/abnormal . [facility] HospitalPvvxhlfFJQRIHFSLR5878-86-84 06:44:00 Test Item Value Reference Range Interpretation Comments Microcyte (test code = 1+ *ABN*(02/13/16 1:44 Microcyte) AM) [facility] HospitalQqvxazpYWWJJXLGRK0199-87-25 06:44:00 Test Item Value Reference Range Interpretation Comments Giant Plt (test code Moderate *ABN*(02/13/16 = Giant Plt) 1:44 AM) [facility] HospitalRlmztkwLUVETMMYXG2062-44-78 06:44:00 Test Item Value Reference Range Interpretation Comments Segs (test code = Segs) 75.2 45.0-75.0 [facility] HospitalWtviuwtSWKNHTXRAA9596-13-36 06:44:00 Test Item Value Reference Range Interpretation Comments Hypochrom (test code = 1+ (02/13/16 1:44 AM) Hypochrom) [facility] HospitalVagcvmgQVXLQUWQKK1006-76-57 06:44:00 Test Item Value Reference Range Interpretation Comments Eosinophils (test code = 0.7 See_Comment [A utomated message] The Eosinophils) system which ge nerated this result tra nsmitted reference range : <=4.0. The reference r ozzy was not used to int erpret this result as normal/abnormal . [facility] HospitalKjsqwbxUDZZISVMDN7203-10-62 06:44:00 Test Item Value Reference Range Interpretation Comments Lymphocytes (test code = Lymphocytes) 21.3 20.0-40.0 [facility] HospitalJphhayuLFGZGBDAMH5530-36-30 06:44:00 Test Item Value Reference Range Interpretation Comments Monocytes (test code = Monocytes) 2.7 2.0-12.0 [facility] HospitalNhlldkrDDESYNFGNH5891-80-70 06:44:00 Test Item Value Reference Range Interpretation Comments MPV (test code = MPV) 9.5 7.4-10.4 [facility] HospitalXfkirkkTCTVTMNTFC0811-57-07 06:44:00 Test Item Value Reference Range Interpretation Comments RDW (test code = RDW) 17.8 11.5-14.5 [facility] HospitalKpkfgydPMYXPDQGUT6568-49-86 06:44:00 Test Item Value Reference Range Interpretation Comments MCV (test code = MCV) 73.2 80.0-98.0 [facility] HospitalRtkjdilXKVHKBQOAC6318-30-78 06:44:00 Test Item Value Reference Range Interpretation Comments MCH (test code = MCH) 21.9 pg 27.0-31.0 [facility] HospitalMzgbwtmRULAXNXZPO3810-43-70 06:44:00 Test Item Value Reference Range Interpretation Comments Hct (test code = Hct) 27.2 36.0-48.0 [facility] HospitalVtxqovqJDAFSDDTXP0729-41-23 06:44:00 Test Item Value Reference Range Interpretation Comments MCHC (test code = MCHC) 29.9 32.0-36.0 [facility] HospitalZexqpcsAYTKZZGMJX8031-49-90 06:44:00 Test Item Value Reference Range Interpretation Comments Platelet (test code = Platelet) 400 133-450 [facility] HospitalYquirpxBTWVKOLWVH8536-21-92 06:44:00 Test Item Value Reference Range Interpretation Comments WBC (test code = WBC) 12.4 3.7-10.4 [facility] HospitalTivjlquHDUUFRRGFQ1462-16-63 06:44:00 Test Item Value Reference Range Interpretation Comments RBC (test code = RBC) 3.72 4.20-5.40 [facility] HospitalSuearnrZWGFHXAPUL3131-55-16 06:44:00 Test Item Value Reference Range Interpretation Comments Hgb (test code = Hgb) 8.1 12.0-16.0 [facility] HospitalXjkabljJXGJUQEQDM6299-30-69 06:44:00 Test Item Value Reference Range Interpretation Comments PTT (test code = PTT) 27.2 s 22.9-35.8 [facility] DqxxlmmMFOVHHRUPW8599-00-85 06:44:00 Test Item Value Reference Range Interpretation Comments PT (test code = PT) 14.7 s 12.0-14.7 [facility] OnaztjbYNSYVPAAEN7003-98-95 06:44:00 Test Item Value Reference Range Interpretation Comments INR (test code = INR) 1.12 0.85-1.17 [facility] [id number] 06:44:00 Test Item Value Reference Range Interpretation Comments Antibody Scrn (test Negative (02/13/16 1:44 code = Antibody Scrn) AM) [employer] TYEANQE4635-65-50 06:44:00 Test Item Value Reference Range Interpretation Comments ABO/Rh (test code = ABO/Rh) A POS [employer]2016-07-03 06:44:00 Test Item Value Reference Range Interpretation Comments CK MB Index (test 1.6 See_Comment [Automate d message] The code = CK MB Index) system w [facility] generated this result transmit gaye reference range : <=2.5. The reference range was not used to interpr et this result as satish l/abnormal. [facility] [employer] [facility]2016-07-03 06:44:00 Test Item Value Reference Range Interpretation Comments CK MB (test code = CK MB) 0.9 0.5-3.6 [facility] [employer]2016-07-03 06:44:00 Test Item Value Reference Range Interpretation Comments Total CK (test code = Total CK) 57 12-191 [facility] [employer]2016-07-03 06:44:00 Test Item Value Reference Range Interpretation Comments Troponin-I (test code no gt See_Comment [Auto mated message] The = Troponin-I) system which g enerated this result transmit gaye reference range : <=0.40. The reference r ozzy was not used to interpr et this result as satish l/abnormal. [employer])2016-07-03 06:44:00 Test Item Value Reference Range Interpretation Comments Albumin Lvl (test code = Albumin Lvl) 3.5 3.5-5.0 [employer])2016-07-03 06:44:00 Test Item Value Reference Range Interpretation Comments Total Protein (test code = Total 7.0 6.4-8.4 Protein) [place] 899676-07-03 06:44:00 Test Item Value Reference Range Interpretation Comments ALT (test code = ALT) 19 See_Comment [Auto mated message] The system which ge nerated this result transmit gaye reference range : <=65. The reference range was not used to interpr et this result as satish l/abnormal. [place] 899676-07-03 06:44:00 Test Item Value Reference Range Interpretation Comments AST (test code = AST) 10 See_Comment [Auto mated message] The system which ge nerated this result transmit gaye reference range : <=37. The reference range was not used to interpr et this result as satish l/abnormal. [facility]2016-07-03 06:44:00 Test Item Value Reference Range Interpretation Comments Alk Phos (test code = Alk Phos) 79 39-136 [facility]2016-07-03 06:44:00 Test Item Value Reference Range Interpretation Comments Bili Total (test code = Bili Total) 0.4 0.2-1.3 [place] 899676-07-03 06:44:00 Test Item Value Reference Range Interpretation Comments Bili Direct (test code 0.1 See_Comment [Aut omated message] The = Bili Direct) system which generated this result tra nsmitted reference range : <=0.3. The reference r ozzy was not used to int erpret this result as satish l/abnormal. [facility]2016-07-03 06:44:00 Test Item Value Reference Range Interpretation Comments Globulin (test code = Globulin) 3.5 2.0-4.0 [place] [address]-07-03 06:44:00 Test Item Value Reference Range Interpretation Comments A/G Ratio (test code = A/G Ratio) 1.0 0.7-1.6 [place] 899676-07-03 06:44:00 Test Item Value Reference Range Interpretation Comments Bili Indirect (test 0.3 See_Comment [Automa gaye message] The code = Bili Indirect) system which generated this result tra nsmitted reference range : <=1.0. The reference r ozzy was not used to int erpret this result as normal/abnormal . [facility]2016-07-03 06:44:00 Test Item Value Reference Range Interpretation Comments eGFR (test code = eGFR) 107 [facility]2016-07-03 06:44:00 Test Item Value Reference Range Interpretation Comments BUN (test code = BUN) 8 7-22 [facility]2016-07-03 06:44:00 Test Item Value Reference Range Interpretation Comments Glucose Lvl (test code = Glucose Lvl) 91 70-99 [facility]2016-07-03 06:44:00 Test Item Value Reference Range Interpretation Comments Sodium Lvl (test code = Sodium Lvl) 138 135-145 [facility]2016-07-03 06:44:00 Test Item Value Reference Range Interpretation Comments Creatinine Lvl (test code = Creatinine 0.70 0.50-1.40 Lvl) [facility]2016-07-03 06:44:00 Test Item Value Reference Range Interpretation Comments Potassium Lvl (test code = Potassium 3.3 3.5-5.1 Lvl) [facility]2016-07-03 06:44:00 Test Item Value Reference Range Interpretation Comments CO2 (test code = CO2) 25 24-32 [facility]2016-07-03 06:44:00 Test Item Value Reference Range Interpretation Comments Chloride Lvl (test code = Chloride Lvl) 106 95-109 [facility]2016-07-03 06:44:00 Test Item Value Reference Range Interpretation Comments Calcium Lvl (test code = Calcium Lvl) 8.1 8.5-10.5 [facility]2016-07-03 06:44:00 Test Item Value Reference Range Interpretation Comments AGAP (test code = AGAP) 10.3 10.0-20.0 [facility]2016-07-03 06:44:00 Test Item Value Reference Range Interpretation Comments Magnesium Lvl (test code = Magnesium 2.2 1.8-2.4 Lvl) [facility]qphqyyVIYECJFBARUGF6105-00-79 06:44:00 Test Item Value Reference Range Interpretation Comments S Preg (test code = S Negative *NA*(02/13/16 Preg) 1:44 AM) [facility] 06:44:00 Test Item Value Reference Range Interpretation Comments Basophils (test code = 0.1 See_Comment [Aut omated message] The Basophils) system which ge nerated this result tra nsmitted reference range : <=1.0. The reference r ozzy was not used to int erpret this result as normal/abnormal . [facility]qtnwtgMJNFDWXMEY7225-23-51 06:44:00 Test Item Value Reference Range Interpretation Comments Monocytes # (test code 0.3 See_Comment [Aut omated message] The = Monocytes #) system which generated this result tra nsmitted reference range : <=0.8. The reference r ozzy was not used to int erpret this result as normal/abnormal . [facility] HospitalIrmrzauXRLOFXSFHZ1228-62-55 06:44:00 Test Item Value Reference Range Interpretation Comments Eosinophils # (test code 0.1 See_Comment [A utomated message] The = Eosinophils #) system whic h generated this result tra nsmitted reference range : <=0.5. The reference r ozzy was not used to int erpret this result as normal/abnormal . [facility] HospitalCuhsptrXHJHCREFCR2746-59-78 06:44:00 Test Item Value Reference Range Interpretation Comments Segs-Bands # (test code = Segs-Bands #) 9.3 1.5-8.1 [facility] HospitalVgxwezwVOPPEXNMCZ8455-72-36 06:44:00 Test Item Value Reference Range Interpretation Comments Lymphocytes # (test code = Lymphocytes 2.6 1.0-5.5 #) [facility] HospitalGjhewniFCKHPLQTVX2465-99-06 06:44:00 Test Item Value Reference Range Interpretation Comments Basophils # (test code 0.0 See_Comment [Aut omated message] The = Basophils #) system which generated this result tra nsmitted reference range : <=0.2. The reference r ozzy was not used to int erpret this result as normal/abnormal . [facility] HospitalJqsccymAGIHDSAOSM0365-90-35 06:44:00 Test Item Value Reference Range Interpretation Comments Microcyte (test code = 1+ *ABN*(02/13/16 1:44 Microcyte) AM) [facility] HospitalNlcbmdtCEEOHZSNPG0927-99-58 06:44:00 Test Item Value Reference Range Interpretation Comments Giant Plt (test code Moderate *ABN*(02/13/16 = Giant Plt) 1:44 AM) [facility] HospitalFcbqldoNSABLNLIQC6555-79-23 06:44:00 Test Item Value Reference Range Interpretation Comments Segs (test code = Segs) 75.2 45.0-75.0 [facility] HospitalWcirlgmOXQXITPFLF1145-75-43 06:44:00 Test Item Value Reference Range Interpretation Comments Hypochrom (test code = 1+ (02/13/16 1:44 AM) Hypochrom) [facility] HospitalGrhhscvVLOHFYNQFP0190-48-63 06:44:00 Test Item Value Reference Range Interpretation Comments Eosinophils (test code = 0.7 See_Comment [A utomated message] The Eosinophils) system which ge nerated this result tra nsmitted reference range : <=4.0. The reference r ozzy was not used to int erpret this result as normal/abnormal . [facility] HospitalWqzmwheQEEXAHMJAP2299-68-87 06:44:00 Test Item Value Reference Range Interpretation Comments Lymphocytes (test code = Lymphocytes) 21.3 20.0-40.0 [facility] HospitalZjtijmyDEHUHWENZX4572-25-80 06:44:00 Test Item Value Reference Range Interpretation Comments Monocytes (test code = Monocytes) 2.7 2.0-12.0 [facility] HospitalKlmlpfyOYBHUJKUPU0933-62-60 06:44:00 Test Item Value Reference Range Interpretation Comments MPV (test code = MPV) 9.5 7.4-10.4 [facility] HospitalBquddkpXKXDCYTBJY8324-59-46 06:44:00 Test Item Value Reference Range Interpretation Comments RDW (test code = RDW) 17.8 11.5-14.5 [facility] HospitalCbvfitcKHZUNECZSL6146-35-89 06:44:00 Test Item Value Reference Range Interpretation Comments MCV (test code = MCV) 73.2 80.0-98.0 [facility] HospitalSphualaAOSZMHTMTJ4814-95-13 06:44:00 Test Item Value Reference Range Interpretation Comments MCH (test code = MCH) 21.9 pg 27.0-31.0 [facility] HospitalLdzxleiYCICIIPJUP9522-98-55 06:44:00 Test Item Value Reference Range Interpretation Comments Hct (test code = Hct) 27.2 36.0-48.0 [facility] HospitalCurzbcuHOVINPPNBW0768-00-51 06:44:00 Test Item Value Reference Range Interpretation Comments MCHC (test code = MCHC) 29.9 32.0-36.0 [facility] HospitalFmgxikkJVCSNWGDBX6571-10-71 06:44:00 Test Item Value Reference Range Interpretation Comments Platelet (test code = Platelet) 400 133-450 [facility] HospitalMahgdheVURECGMOWQ6543-35-61 06:44:00 Test Item Value Reference Range Interpretation Comments WBC (test code = WBC) 12.4 3.7-10.4 [facility] HospitalLgfaoxlFMVBJNPDJG1873-36-81 06:44:00 Test Item Value Reference Range Interpretation Comments RBC (test code = RBC) 3.72 4.20-5.40 [facility] HospitalQgospidETBUQAWNOY1121-61-45 06:44:00 Test Item Value Reference Range Interpretation Comments Hgb (test code = Hgb) 8.1 12.0-16.0 [facility] HospitalVatzvzdCKQDHHXBCB4091-39-71 06:44:00 Test Item Value Reference Range Interpretation Comments PTT (test code = PTT) 27.2 s 22.9-35.8 [facility] HospitalDllolwmACAYCQMWSG0061-03-74 06:44:00 Test Item Value Reference Range Interpretation Comments PT (test code = PT) 14.7 s 12.0-14.7 [facility] HospitalMrfizjxUEKNFSREYU2600-65-89 06:44:00 Test Item Value Reference Range Interpretation Comments INR (test code = INR) 1.12 0.85-1.17 [facility] HospitalTylqsxbIDYXICGVYC3018-74-70 06:44:00 Test Item Value Reference Range Interpretation Comments Eosinophils # (test code = Eosinophils 0.1 <=0.5 #) [facility] HospitalQnzgzotLNZOGAMQWK5664-94-39 06:44:00 Test Item Value Reference Range Interpretation Comments Segs-Bands # (test code = Segs-Bands #) 9.3 1.5-8.1 [facility] HospitalLcyznmhRTDXARLWBD8280-21-82 06:44:00 Test Item Value Reference Range Interpretation Comments Lymphocytes # (test code = Lymphocytes 2.6 1.0-5.5 #) [facility] HospitalUvtcssvSLWDZQSZUS2021-20-24 06:44:00 Test Item Value Reference Range Interpretation Comments Basophils # (test code = Basophils #) 0.0 <=0.2 [facility] HospitalJybytlfZUKJKKAIZC1685-25-53 06:44:00 Test Item Value Reference Range Interpretation Comments Microcyte (test code = 1+ *ABN*(02/13/16 1:44 Microcyte) AM) [facility] HospitalDykxvsnBTHKZDZIRS1710-29-12 06:44:00 Test Item Value Reference Range Interpretation Comments Giant Plt (test code Moderate *ABN*(02/13/16 = Giant Plt) 1:44 AM) [facility] HospitalPbjkixrXNEAFECBPL1010-56-24 06:44:00 Test Item Value Reference Range Interpretation Comments Segs (test code = Segs) 75.2 45.0-75.0 [facility] HospitalObdnyymLGJYCCGIKJ4188-22-12 06:44:00 Test Item Value Reference Range Interpretation Comments Hypochrom (test code = 1+ (02/13/16 1:44 AM) Hypochrom) [facility] HospitalLbxjuaePTKHVEVSAZ1425-82-77 06:44:00 Test Item Value Reference Range Interpretation Comments Eosinophils (test code = Eosinophils) 0.7 <=4.0 [facility] HospitalMlkwbxpZUDRJRUUKO7854-29-40 06:44:00 Test Item Value Reference Range Interpretation Comments Lymphocytes (test code = Lymphocytes) 21.3 20.0-40.0 [facility] HospitalKfrqnixPMVYWHFXWO4952-60-36 06:44:00 Test Item Value Reference Range Interpretation Comments Monocytes (test code = Monocytes) 2.7 2.0-12.0 [facility] HospitalDejdjtqBEISVJRGME3388-61-00 06:44:00 Test Item Value Reference Range Interpretation Comments MPV (test code = MPV) 9.5 7.4-10.4 [facility] HospitalKjfjojkEJODQNDKOH0376-67-01 06:44:00 Test Item Value Reference Range Interpretation Comments RDW (test code = RDW) 17.8 11.5-14.5 [facility] HospitalJufzpfhCOGDFNJYDL6398-35-57 06:44:00 Test Item Value Reference Range Interpretation Comments MCV (test code = MCV) 73.2 80.0-98.0 [facility] HospitalRuenftmSTLTDQOBLK6864-74-60 06:44:00 Test Item Value Reference Range Interpretation Comments MCH (test code = MCH) 21.9 pg 27.0-31.0 [facility] HospitalUnzyvdqKECWQNJCBO9228-97-42 06:44:00 Test Item Value Reference Range Interpretation Comments Hct (test code = Hct) 27.2 36.0-48.0 [facility] HospitalLdesckqHXWNNMAQYB1300-33-31 06:44:00 Test Item Value Reference Range Interpretation Comments MCHC (test code = MCHC) 29.9 32.0-36.0 [facility] HospitalRvxwwabPPUGKBOQNI0671-93-53 06:44:00 Test Item Value Reference Range Interpretation Comments Platelet (test code = Platelet) 400 133-450 [facility]xodmojJCYTZRZKBI4981-89-05 06:44:00 Test Item Value Reference Range Interpretation Comments WBC (test code = WBC) 12.4 3.7-10.4 [employer] NetworkItxqwzoVLLEMCQHJY9143-61-11 06:44:00 Test Item Value Reference Range Interpretation Comments RBC (test code = RBC) 3.72 4.20-5.40 [employer] NetworkRxizmxyYNQZETDQKK3022-09-42 06:44:00 Test Item Value Reference Range Interpretation Comments Hgb (test code = Hgb) 8.1 12.0-16.0 [employer] NetworkHujmqcpEVUMQGRCCW3018-43-07 06:44:00 Test Item Value Reference Range Interpretation Comments PTT (test code = PTT) 27.2 s 22.9-35.8 [employer] NetworkObfgbabALSRXAWZRM8733-03-93 06:44:00 Test Item Value Reference Range Interpretation Comments PT (test code = PT) 14.7 s 12.0-14.7 [employer] NetworkLowswnhLKYWMUOHOS7109-57-35 06:44:00 Test Item Value Reference Range Interpretation Comments INR (test code = INR) 1.12 0.85-1.17 [employer] IGWMYAI8235-62-89 06:44:00 Test Item Value Reference Range Interpretation Comments Antibody Scrn (test Negative (02/13/16 1:44 code = Antibody Scrn) AM) [employer] LNCRDJU3362-70-40 06:44:00 Test Item Value Reference Range Interpretation Comments ABO/Rh (test code = ABO/Rh) A POS [facility]2016-07-03 06:44:00 Test Item Value Reference Range Interpretation Comments CK MB Index (test code = CK MB Index) 1.6 <=2.5 [facility]2016-07-03 06:44:00 Test Item Value Reference Range Interpretation Comments CK MB (test code = CK MB) 0.9 0.5-3.6 [facility]2016-07-03 06:44:00 Test Item Value Reference Range Interpretation Comments Total CK (test code = Total CK) 57 12-191 [facility] [employer]2016-07-03 06:44:00 Test Item Value Reference Range Interpretation Comments Troponin-I (test code = Troponin-I) no gt <=0.40 [facility]2016-07-03 06:44:00 Test Item Value Reference Range Interpretation Comments Albumin Lvl (test code = Albumin Lvl) 3.5 3.5-5.0 [facility]2016-07-03 06:44:00 Test Item Value Reference Range Interpretation Comments Total Protein (test code = Total 7.0 6.4-8.4 Protein) [facility]2016-07-03 06:44:00 Test Item Value Reference Range Interpretation Comments ALT (test code = ALT) 19 <=65 [facility]2016-07-03 06:44:00 Test Item Value Reference Range Interpretation Comments AST (test code = AST) 10 <=37 [facility]2016-07-03 06:44:00 Test Item Value Reference Range Interpretation Comments Alk Phos (test code = Alk Phos) 79 39-136 [facility]2016-07-03 06:44:00 Test Item Value Reference Range Interpretation Comments Bili Total (test code = Bili Total) 0.4 0.2-1.3 [facility]2016-07-03 06:44:00 Test Item Value Reference Range Interpretation Comments Bili Direct (test code = Bili Direct) 0.1 <=0.3 [facility]2016-07-03 06:44:00 Test Item Value Reference Range Interpretation Comments Globulin (test code = Globulin) 3.5 2.0-4.0 [facility]2016-07-03 06:44:00 Test Item Value Reference Range Interpretation Comments A/G Ratio (test code = A/G Ratio) 1.0 0.7-1.6 [facility]2016-07-03 06:44:00 Test Item Value Reference Range Interpretation Comments Bili Indirect (test code = Bili 0.3 <=1.0 Indirect) [facility]2016-07-03 06:44:00 Test Item Value Reference Range Interpretation Comments eGFR (test code = eGFR) 107 [facility]2016-07-03 06:44:00 Test Item Value Reference Range Interpretation Comments BUN (test code = BUN) 8 7-22 [facility]2016-07-03 06:44:00 Test Item Value Reference Range Interpretation Comments Glucose Lvl (test code = Glucose Lvl) 91 70-99 [facility]2016-07-03 06:44:00 Test Item Value Reference Range Interpretation Comments Sodium Lvl (test code = Sodium Lvl) 138 135-145 [facility]2016-07-03 06:44:00 Test Item Value Reference Range Interpretation Comments Creatinine Lvl (test code = Creatinine 0.70 0.50-1.40 Lvl) [facility]2016-07-03 06:44:00 Test Item Value Reference Range Interpretation Comments Potassium Lvl (test code = Potassium 3.3 3.5-5.1 Lvl) [facility]2016-07-03 06:44:00 Test Item Value Reference Range Interpretation Comments CO2 (test code = CO2) 25 24-32 [facility]2016-07-03 06:44:00 Test Item Value Reference Range Interpretation Comments Chloride Lvl (test code = Chloride Lvl) 106 95-109 [facility]2016-07-03 06:44:00 Test Item Value Reference Range Interpretation Comments Calcium Lvl (test code = Calcium Lvl) 8.1 8.5-10.5 [facility]2016-07-03 06:44:00 Test Item Value Reference Range Interpretation Comments AGAP (test code = AGAP) 10.3 10.0-20.0 [facility]2016-07-03 06:44:00 Test Item Value Reference Range Interpretation Comments Magnesium Lvl (test code = Magnesium 2.2 1.8-2.4 Lvl) [facility]kinAhnhrisWLCRECWNFCIJX2235-61-54 06:44:00 Test Item Value Reference Range Interpretation Comments S Preg (test code = S Negative *NA*(02/13/16 Preg) 1:44 AM) [facility]VvrzujeIWFFBZMNBV8633-20-78 06:44:00 Test Item Value Reference Range Interpretation Comments Basophils (test code = Basophils) 0.1 <=1.0 [facility]QwitvuoYFJUUYWEHR3771-09-48 06:44:00 Test Item Value Reference Range Interpretation Comments Monocytes # (test code = Monocytes #) 0.3 <=0.8 [facility]2015-01-23 07:51:00 Test Item Value Reference Range Interpretation Comments Globulin (test code = Globulin) 3.9 2.0-4.0 [facility] [id number] 07:51:00 Test Item Value Reference Range Interpretation Comments A/G Ratio (test code = A/G Ratio) 0.9 0.7-1.6 [facility]kinZzhmpjoEDHIHMOVEGKVI3046-95-17 07:51:00 Test Item Value Reference Range Interpretation Comments hCG Tot (test code = hCG Tot) no gt [facility] HospitalCyyqhakVUMZYCRDLH2337-62-54 07:51:00 Test Item Value Reference Range Interpretation Comments MCHC (test code = MCHC) 33.8 32.0-36.0 [facility] HospitalTnhjwvoHSRPTDSQYE6771-50-75 07:51:00 Test Item Value Reference Range Interpretation Comments MCH (test code = MCH) 30.3 pg 27.0-31.0 [facility] HospitalOuwadwnRLETVOHSJQ6881-12-58 07:51:00 Test Item Value Reference Range Interpretation Comments RDW (test code = RDW) 13.0 11.5-14.5 [facility] HospitalGchkyjrKCVNSMLRDN6355-47-21 07:51:00 Test Item Value Reference Range Interpretation Comments MPV (test code = MPV) 8.4 7.4-10.4 [facility] HospitalPaooxcoNVQPZIZEVW4002-92-00 07:51:00 Test Item Value Reference Range Interpretation Comments Platelet (test code = Platelet) 356 133-450 [facility] HospitalGuoovzzUUSNYCFTKG9118-23-05 07:51:00 Test Item Value Reference Range Interpretation Comments RBC (test code = RBC) 4.45 4.20-5.40 [facility] HospitalHofzgaiYLWKAZBZYK2607-98-68 07:51:00 Test Item Value Reference Range Interpretation Comments WBC (test code = WBC) 12.9 3.7-10.4 [facility] HospitalXzrejqpUDKCOTBAWW2607-05-02 07:51:00 Test Item Value Reference Range Interpretation Comments Hgb (test code = Hgb) 13.5 12.0-16.0 [facility] HospitalArcbzysILYMCBGFBB8019-16-89 07:51:00 Test Item Value Reference Range Interpretation Comments MCV (test code = MCV) 89.7 80.0-98.0 [facility] HospitalKueyvliACQPAOSDRO4383-10-84 07:51:00 Test Item Value Reference Range Interpretation Comments Hct (test code = Hct) 39.9 36.0-48.0 [facility] HospitalLfxiwyqMAXLZZCLCJ2412-98-77 07:51:00 Test Item Value Reference Range Interpretation Comments Eosinophils # (test code 0.3 See_Comment [A utomated message] The = Eosinophils #) system whic h generated this result tra nsmitted reference range : <=0.5. The reference r ozzy was not used to int erpret this result as normal/abnormal . [facility] HospitalIeecpxuKORSCJNAAK5068-90-69 07:51:00 Test Item Value Reference Range Interpretation Comments Lymphocytes # (test code = Lymphocytes 3.6 1.0-5.5 #) [facility] HospitalYihapvtIRATYJKDFR3693-52-64 07:51:00 Test Item Value Reference Range Interpretation Comments Monocytes # (test code 0.7 See_Comment [Aut omated message] The = Monocytes #) system which generated this result tra nsmitted reference range : <=0.8. The reference r ozzy was not used to int erpret this result as normal/abnormal . [facility] HospitalFblptqcLPAMBAHMRN6814-62-31 07:51:00 Test Item Value Reference Range Interpretation Comments Segs (test code = Segs) 63.9 45.0-75.0 [facility] HospitalEysufuyULCIWRMGKP2287-14-28 07:51:00 Test Item Value Reference Range Interpretation Comments Segs-Bands # (test code = Segs-Bands #) 8.2 1.5-8.1 [facility] HospitalVzyaqwwHXCYUNICLJ9471-65-38 07:51:00 Test Item Value Reference Range Interpretation Comments Basophils (test code = 0.7 See_Comment [Aut omated message] The Basophils) system which ge nerated this result tra nsmitted reference range : <=1.0. The reference r ozzy was not used to int erpret this result as normal/abnormal . [facility] HospitalAunaasaJKIONRVJIM2328-67-41 07:51:00 Test Item Value Reference Range Interpretation Comments Monocytes (test code = Monocytes) 5.4 2.0-12.0 [facility] HospitalPpwguqqBFVEAMXOPE0236-63-93 07:51:00 Test Item Value Reference Range Interpretation Comments Eosinophils (test code = 2.3 See_Comment [A utomated message] The Eosinophils) system which ge nerated this result tra nsmitted reference range : <=4.0. The reference r ozzy was not used to int erpret this result as normal/abnormal . [facility] HospitalZirhxcaVQSNINMGWO8732-27-63 07:51:00 Test Item Value Reference Range Interpretation Comments Lymphocytes (test code = Lymphocytes) 27.7 20.0-40.0 [facility] HospitalIfvnfetGULRPSROJL4144-65-70 07:51:00 Test Item Value Reference Range Interpretation Comments Basophils # (test code 0.1 See_Comment [Aut omated message] The = Basophils #) system which generated this result tra nsmitted reference range : <=0.2. The reference r ozzy was not used to int erpret this result as normal/abnormal . [facility] AND [id number] 07:51:00 Test Item Value Reference Range Interpretation Comments UA Urobilinogen (test code = UA 1.0 0.1-1.0 Urobilinogen) [facility] AND [id number] 07:51:00 Test Item Value Reference Range Interpretation Comments UA Turbidity (test code Cloudy *ABN*(09/04/14 = UA Turbidity) 1:51 AM) [facility] AND [id number] 07:51:00 Test Item Value Reference Range Interpretation Comments UA Color (test code = Red *ABN*(09/04/14 1:51 UA Color) AM) [facility] AND [id number] 07:51:00 Test Item Value Reference Range Interpretation Comments UA Ketones (test code Negative *NA*(09/04/14 = UA Ketones) 1:51 AM) [facility] AND [id number] 07:51:00 Test Item Value Reference Range Interpretation Comments UA Glucose (test code Negative (09/04/14 1:51 = UA Glucose) AM) [facility] AND [id number] 07:51:00 Test Item Value Reference Range Interpretation Comments UA Protein (test code = Trace *ABN*(09/04/14 UA Protein) 1:51 AM) [facility] AND [id number] 07:51:00 Test Item Value Reference Range Interpretation Comments UA pH (test code = UA pH) 8.0 1 5.0-8.0 [facility] AND [id number] 07:51:00 Test Item Value Reference Range Interpretation Comments UA Spec Grav (test code = UA Spec 1.015 1 Grav) [facility] AND [id number] 07:51:00 Test Item Value Reference Range Interpretation Comments UA Bili (test code = Negative *NA*(09/04/14 UA Bili) 1:51 AM) [facility] AND [id number] 07:51:00 Test Item Value Reference Range Interpretation Comments UA Blood (test code = Large *ABN*(09/04/14 UA Blood) 1:51 AM) [facility] AND [id number] 07:51:00 Test Item Value Reference Range Interpretation Comments UA Leuk Est (test Negative (09/04/14 1:51 code = UA Leuk Est) AM) [facility] AND [id number] 07:51:00 Test Item Value Reference Range Interpretation Comments UA Nitrite (test code Negative (09/04/14 1:51 = UA Nitrite) AM) [facility] AND [id number] 07:51:00 Test Item Value Reference Range Interpretation Comments UA Amorph Joselin (test code = UA Few /HPF Amorph Joselin) [facility] AND [id number] 07:51:00 Test Item Value Reference Range Interpretation Comments UA RBC (test code 51-100 /HPF See_Comment [Automate d message] The = UA RBC) system which ge nerated this result tra nsmitted reference range : <=2. The reference r ozzy was not used to int erpret this result as normal/abnormal . [facility] AND [id number] 07:51:00 Test Item Value Reference Range Interpretation Comments UA WBC (test code = UA WBC) 6-10 /HPF [facility] AND [id number] 07:51:00 Test Item Value Reference Range Interpretation Comments UA Bacteria (test code = UA Few /HPF Bacteria) [facility] AND [id number] 07:51:00 Test Item Value Reference Range Interpretation Comments UA Sq Epi (test code = UA Sq Occasional /LPF Epi) [facility] [employer] [facility] [id number] 07:51:00 Test Item Value Reference Range Interpretation Comments ABO/Rh (test code = ABO/Rh) A POS [facility] [employer] [facility] [id number] 07:51:00 Test Item Value Reference Range Interpretation Comments Antibody Scrn (test Negative (09/04/14 1:51 code = Antibody Scrn) AM) [facility]2015-01-23 07:51:00 Test Item Value Reference Range Interpretation Comments Albumin Lvl (test code = Albumin Lvl) 3.4 3.5-5.0 [facility]2015-01-23 07:51:00 Test Item Value Reference Range Interpretation Comments Alk Phos (test code = Alk Phos) 64 39-136 [facility]2015-01-23 07:51:00 Test Item Value Reference Range Interpretation Comments ALT (test code = ALT) 18 See_Comment [Auto mated message] The system which ge nerated this result transmit gaye reference range : <=65. The reference range was not used to interpr et this result as satish l/abnormal. [facility]2015-01-23 07:51:00 Test Item Value Reference Range Interpretation Comments AST (test code = AST) 12 See_Comment [Auto mated message] The system which ge nerated this result transmit gaye reference range : <=37. The reference range was not used to interpr et this result as satish l/abnormal. [facility]2015-01-23 07:51:00 Test Item Value Reference Range Interpretation Comments eGFR (test code = eGFR) 93 [facility]2015-01-23 07:51:00 Test Item Value Reference Range Interpretation Comments Bili Total (test code = Bili Total) 0.3 0.2-1.3 [facility] [facility] 07:[facility]:00 Test Item Value Reference Range Interpretation Comments Chloride Lvl (test code = Chloride Lvl) 108 95-109 [facility]2015-01-23 07:51:00 Test Item Value Reference Range Interpretation Comments Sodium Lvl (test code = Sodium Lvl) 138 135-145 [facility]2015-01-23 07:51:00 Test Item Value Reference Range Interpretation Comments Potassium Lvl (test code = Potassium 3.9 3.5-5.1 Lvl) [facility]2015-01-23 07:51:00 Test Item Value Reference Range Interpretation Comments CO2 (test code = CO2) 22 24-32 [facility]2015-01-23 07:51:00 Test Item Value Reference Range Interpretation Comments Calcium Lvl (test code = Calcium Lvl) 8.8 8.5-10.5 [facility]2015-01-23 07:51:00 Test Item Value Reference Range Interpretation Comments Glucose Lvl (test code = Glucose Lvl) 98 70-99 [facility]2015-01-23 07:51:00 Test Item Value Reference Range Interpretation Comments Total Protein (test code = Total 7.3 6.4-8.4 Protein) [facility]2015-01-23 07:51:00 Test Item Value Reference Range Interpretation Comments BUN (test code = BUN) 12 7-22 [facility]2015-01-23 07:51:00 Test Item Value Reference Range Interpretation Comments Creatinine Lvl (test code = Creatinine 0.8 0.5-1.4 Lvl) [facility]2015-01-23 07:51:00 Test Item Value Reference Range Interpretation Comments AGAP (test code = AGAP) 11.9 10.0-20.0 [facility]2015-01-23 07:51:00 Test Item Value Reference Range Interpretation Comments B/C Ratio (test code = B/C Ratio) 15 6-25 [facility]2015-01-23 07:51:00 Test Item Value Reference Range Interpretation Comments Globulin (test code = Globulin) 3.9 2.0-4.0 [facility]2015-01-23 07:51:00 Test Item Value Reference Range Interpretation Comments A/G Ratio (test code = A/G Ratio) 0.9 0.7-1.6 [facility]fwhrlvFWMNYJBZIQEAJ5991-24-85 07:51:00 Test Item Value Reference Range Interpretation Comments hCG Tot (test code = hCG Tot) no gt [facility]aPMRILJXQVS2726-95-50 07:51:00 Test Item Value Reference Range Interpretation Comments MCHC (test code = MCHC) 33.8 32.0-36.0 [facility]KtongweZWBEXEYAJK5619-86-04 07:51:00 Test Item Value Reference Range Interpretation Comments MCH (test code = MCH) 30.3 pg 27.0-31.0 [facility] HospitalFgnyuikONWUSPXSPH0649-70-73 07:51:00 Test Item Value Reference Range Interpretation Comments RDW (test code = RDW) 13.0 11.5-14.5 [facility] HospitalPxedzapFTKRELWLAE9267-21-09 07:51:00 Test Item Value Reference Range Interpretation Comments MPV (test code = MPV) 8.4 7.4-10.4 [place] 246255-01-23 07:51:00 Test Item Value Reference Range Interpretation Comments Platelet (test code = Platelet) 356 133-450 [facility] HospitalNqjxlsoRBPYRJENPV7544-53-12 07:51:00 Test Item Value Reference Range Interpretation Comments RBC (test code = RBC) 4.45 4.20-5.40 [facility] HospitalTzzfhbqJVZWULQTBU5123-13-31 07:51:00 Test Item Value Reference Range Interpretation Comments WBC (test code = WBC) 12.9 3.7-10.4 [facility] HospitalGjnvuqoUDIBNFSZGH2695-70-49 07:51:00 Test Item Value Reference Range Interpretation Comments Hgb (test code = Hgb) 13.5 12.0-16.0 [facility] HospitalBnofpppDSPABNWGJP4281-03-66 07:51:00 Test Item Value Reference Range Interpretation Comments MCV (test code = MCV) 89.7 80.0-98.0 [facility] HospitalBfqqpteEMEJRZXKDC9259-34-49 07:51:00 Test Item Value Reference Range Interpretation Comments Hct (test code = Hct) 39.9 36.0-48.0 [facility] HospitalHqeyseqLUYQPXHCOK4530-40-75 07:51:00 Test Item Value Reference Range Interpretation Comments Eosinophils # (test code 0.3 See_Comment [A utomated message] The = Eosinophils #) system [facility] generated this result tra nsmitted reference range : <=0.5. The reference r ozzy was not used to int erpret this result as normal/abnormal . [facility] HospitalCprgnslQEAGLQQFMG6227-87-32 07:51:00 Test Item Value Reference Range Interpretation Comments Lymphocytes # (test code = Lymphocytes 3.6 1.0-5.5 #) [facility] HospitalGcuzkixVWHEMBWIIE7723-91-78 07:51:00 Test Item Value Reference Range Interpretation Comments Monocytes # (test code 0.7 See_Comment [Aut omated message] The = Monocytes #) system which generated this result tra nsmitted reference range : <=0.8. The reference r ozzy was not used to int erpret this result as normal/abnormal . [facility] HospitalVigctabAHHSWLHMSW4053-84-66 07:51:00 Test Item Value Reference Range Interpretation Comments Segs (test code = Segs) 63.9 45.0-75.0 [facility] HospitalEexzwzaAHGSVRIRJB0423-93-80 07:51:00 Test Item Value Reference Range Interpretation Comments Segs-Bands # (test code = Segs-Bands #) 8.2 1.5-8.1 [facility] HospitalHemojunWWBRXQJQRR1262-41-57 07:51:00 Test Item Value Reference Range Interpretation Comments Basophils (test code = 0.7 See_Comment [Aut omated message] The Basophils) system which ge nerated this result tra nsmitted reference range : <=1.0. The reference r ozzy was not used to int erpret this result as normal/abnormal . [facility] HospitalUuvqrhuWMEDORJEEQ8867-02-75 07:51:00 Test Item Value Reference Range Interpretation Comments Monocytes (test code = Monocytes) 5.4 2.0-12.0 [facility] HospitalOtpqdwtBETQOPMQLR7917-02-94 07:51:00 Test Item Value Reference Range Interpretation Comments Eosinophils (test code = 2.3 See_Comment [A utomated message] The Eosinophils) system which ge nerated this result tra nsmitted reference range : <=4.0. The reference r ozzy was not used to int erpret this result as normal/abnormal . [facility] HospitalLitsgkdHGHDNQWFAD5923-53-32 07:51:00 Test Item Value Reference Range Interpretation Comments Lymphocytes (test code = Lymphocytes) 27.7 20.0-40.0 [facility] HospitalEzbbwmbNTQWSZZOTH0890-87-00 07:51:00 Test Item Value Reference Range Interpretation Comments Basophils # (test code 0.1 See_Comment [Aut omated message] The = Basophils #) system which generated this result tra nsmitted reference range : <=0.2. The reference r ozzy was not used to int erpret this result as normal/abnormal . [facility]2015-01-23 07:51:00 Test Item Value Reference Range Interpretation Comments UA Urobilinogen (test code = UA 1.0 0.1-1.0 Urobilinogen) [facility]2015-01-23 07:51:00 Test Item Value Reference Range Interpretation Comments UA Turbidity (test code Cloudy *ABN*(1/23/15 = UA Turbidity) 1:51 AM) [facility] AND [id number] 07:51:00 Test Item Value Reference Range Interpretation Comments UA Color (test code = Red *ABN*(09/04/14 1:51 UA Color) AM) [facility] AND [id number] 07:51:00 Test Item Value Reference Range Interpretation Comments UA Ketones (test code Negative *NA*(09/04/14 = UA Ketones) 1:51 AM) [facility] AND [id number] 07:51:00 Test Item Value Reference Range Interpretation Comments UA Glucose (test code Negative (09/04/14 1:51 = UA Glucose) AM) [facility] AND [id number] 07:51:00 Test Item Value Reference Range Interpretation Comments UA Protein (test code = Trace *ABN*(09/04/14 UA Protein) 1:51 AM) [facility] AND [id number] 07:51:00 Test Item Value Reference Range Interpretation Comments UA pH (test code = UA pH) 8.0 1 5.0-8.0 [facility] [id number] 07:51:00 Test Item Value Reference Range Interpretation Comments UA Spec Grav (test code = UA Spec 1.015 1 Grav) [facility] AND [id number] 07:51:00 Test Item Value Reference Range Interpretation Comments UA Bili (test code = Negative *NA*(09/04/14 UA Bili) 1:51 AM) [facility] AND [id number] 07:51:00 Test Item Value Reference Range Interpretation Comments UA Blood (test code = Large *ABN*(09/04/14 UA Blood) 1:51 AM) [facility] AND [id number] 07:51:00 Test Item Value Reference Range Interpretation Comments UA Leuk Est (test Negative (09/04/14 1:51 code = UA Leuk Est) AM) [facility] AND [id number] 07:51:00 Test Item Value Reference Range Interpretation Comments UA Nitrite (test code Negative (09/04/14 1:51 = UA Nitrite) AM) [facility] AND [id number] 07:51:00 Test Item Value Reference Range Interpretation Comments UA Amorph Joselin (test code = UA Few /HPF Amorph Joselin) [facility] AND [id number] 07:51:00 Test Item Value Reference Range Interpretation Comments UA RBC (test code 51-100 /HPF See_Comment [Automate d message] The = UA RBC) system which ge nerated this result tra nsmitted reference range : <=2. The reference r ozzy was not used to int erpret this result as normal/abnormal . [facility] [id number] 07:51:00 Test Item Value Reference Range Interpretation Comments UA WBC (test code = UA WBC) 6-10 /HPF [facility] AND [id number] 07:51:00 Test Item Value Reference Range Interpretation Comments UA Bacteria (test code = UA Few /HPF Bacteria) [facility] [id number] 07:51:00 Test Item Value Reference Range Interpretation Comments UA Sq Epi (test code = UA Sq Occasional /LPF Epi) [facility] [employer] [id number] 07:51:00 Test Item Value Reference Range Interpretation Comments ABO/Rh (test code = ABO/Rh) A POS [facility] [employer] [id number] 07:51:00 Test Item Value Reference Range Interpretation Comments Antibody Scrn (test Negative (09/04/14 1:51 code = Antibody Scrn) AM) [facility] [employer] [id number] 07:51:00 Test Item Value Reference Range Interpretation Comments Albumin Lvl (test code = Albumin Lvl) 3.4 3.5-5.0 [facility] [employer] [id number] 07:51:00 Test Item Value Reference Range Interpretation Comments Alk Phos (test code = Alk Phos) 64 39-136 [facility] [employer] [id number] 07:51:00 Test Item Value Reference Range Interpretation Comments ALT (test code = ALT) 18 See_Comment [Auto mated message] The system which ge nerated this result transmit gaye reference range : <=65. The reference range was not used to interpr et this result as satish l/abnormal. [employer] [id number] 07:51:00 Test Item Value Reference Range Interpretation Comments AST (test code = AST) 12 See_Comment [Auto mated message] The system which ge nerated this result transmit gaye reference range : <=37. The reference range was not used to interpr et this result as satish l/abnormal. [facility]2015-01-23 07:51:00 Test Item Value Reference Range Interpretation Comments eGFR (test code = eGFR) 93 [facility]2015-01-23 07:51:00 Test Item Value Reference Range Interpretation Comments Bili Total (test code = Bili Total) 0.3 0.2-1.3 [facility]2015-01-23 07:51:00 Test Item Value Reference Range Interpretation Comments Chloride Lvl (test code = Chloride Lvl) 108 95-109 [facility]2015-01-23 07:51:00 Test Item Value Reference Range Interpretation Comments Sodium Lvl (test code = Sodium Lvl) 138 135-145 [facility]2015-01-23 07:51:00 Test Item Value Reference Range Interpretation Comments Potassium Lvl (test code = Potassium 3.9 3.5-5.1 Lvl) [facility]2015-01-23 07:51:00 Test Item Value Reference Range Interpretation Comments CO2 (test code = CO2) 22 24-32 [facility]2015-01-23 07:51:00 Test Item Value Reference Range Interpretation Comments Calcium Lvl (test code = Calcium Lvl) 8.8 8.5-10.5 [facility]2015-01-23 07:51:00 Test Item Value Reference Range Interpretation Comments Glucose Lvl (test code = Glucose Lvl) 98 70-99 [facility]2015-01-23 07:51:00 Test Item Value Reference Range Interpretation Comments Total Protein (test code = Total 7.3 6.4-8.4 Protein) [facility]2015-01-23 07:51:00 Test Item Value Reference Range Interpretation Comments BUN (test code = BUN) 12 7-22 [facility]2015-01-23 07:51:00 Test Item Value Reference Range Interpretation Comments Creatinine Lvl (test code = Creatinine 0.8 0.5-1.4 Lvl) [facility]2015-01-23 07:51:00 Test Item Value Reference Range Interpretation Comments AGAP (test code = AGAP) 11.9 10.0-20.0 [facility]2015-01-23 07:51:00 Test Item Value Reference Range Interpretation Comments B/C Ratio (test code = B/C Ratio) 15 6-25 [facility] [id number] 07:51:00 Test Item Value Reference Range Interpretation Comments Globulin (test code = Globulin) 3.9 2.0-4.0 [facility]2015-01-23 07:51:00 Test Item Value Reference Range Interpretation Comments A/G Ratio (test code = A/G Ratio) 0.9 0.7-1.6 [id number] 07:51:00 Test Item Value Reference Range Interpretation Comments hCG Tot (test code = hCG Tot) no gt [facility]UtdtnroKEIGPXIHED8805-21-24 07:51:00 Test Item Value Reference Range Interpretation Comments MCHC (test code = MCHC) 33.8 32.0-36.0 [facility] Hos[id number] 07:51:00 Test Item Value Reference Range Interpretation Comments MCH (test code = MCH) 30.3 pg 27.0-31.0 [facility] HospitalZjypvbsKXXYQSSRNF2673-30-27 07:51:00 Test Item Value Reference Range Interpretation Comments RDW (test code = RDW) 13.0 11.5-14.5 [facility] HospitalTczhfxhYQQEVQJKHR6961-62-96 07:51:00 Test Item Value Reference Range Interpretation Comments MPV (test code = MPV) 8.4 7.4-10.4 [facility] Hos[id number] 07:51:00 Test Item Value Reference Range Interpretation Comments Platelet (test code = Platelet) 356 133-450 [facility] HospitalKqcbxvaWHFYICGGQK1098-77-03 07:51:00 Test Item Value Reference Range Interpretation Comments RBC (test code = RBC) 4.45 4.20-5.40 [facility] HospitalQhohltrRQWSTKXFIB5492-32-51 07:51:00 Test Item Value Reference Range Interpretation Comments WBC (test code = WBC) 12.9 3.7-10.4 [facility] HospitalDrsrieyTXSFUMQGAY6640-81-98 07:51:00 Test Item Value Reference Range Interpretation Comments Hgb (test code = Hgb) 13.5 12.0-16.0 [facility] HospitalXbeejtkXIDELGXYBE7880-38-61 07:51:00 Test Item Value Reference Range Interpretation Comments MCV (test code = MCV) 89.7 80.0-98.0 [facility] HospitalQpzejjgUNOTRVYJKN4324-67-67 07:51:00 Test Item Value Reference Range Interpretation Comments Hct (test code = Hct) 39.9 36.0-48.0 [facility] HospitalBltusqjTAQCWIVKBS9233-07-04 07:51:00 Test Item Value Reference Range Interpretation Comments Eosinophils # (test code 0.3 See_Comment [A utomated message] The = Eosinophils #) system whic h generated this result tra nsmitted reference range : <=0.5. The reference r ozzy was not used to int erpret this result as normal/abnormal . [facility] HospitalTiyovvdLXMGDPKFJS2510-71-71 07:51:00 Test Item Value Reference Range Interpretation Comments Lymphocytes # (test code = Lymphocytes 3.6 1.0-5.5 #) [facility] HospitalRgwamdzNDQSRGWSNT1787-20-17 07:51:00 Test Item Value Reference Range Interpretation Comments Monocytes # (test code 0.7 See_Comment [Aut omated message] The = Monocytes #) system which generated this result tra nsmitted reference range : <=0.8. The reference r ozzy was not used to int erpret this result as normal/abnormal . [facility] Hos[id number] 07:51:00 Test Item Value Reference Range Interpretation Comments Segs (test code = Segs) 63.9 45.0-75.0 [facility] HospitalUqskabcQTYMXUMAYV4175-62-74 07:51:00 Test Item Value Reference Range Interpretation Comments Segs-Bands # (test code = Segs-Bands #) 8.2 1.5-8.1 [facility] HospitalCbaxlhgVJVUVGUMGL8314-07-69 07:51:00 Test Item Value Reference Range Interpretation Comments Basophils (test code = 0.7 See_Comment [Aut omated message] The Basophils) system which ge nerated this result tra nsmitted reference range : <=1.0. The reference r ozzy was not used to int erpret this result as normal/abnormal . [facility] HospitalGxdkaaqYRKBDFOUPZ4058-33-66 07:51:00 Test Item Value Reference Range Interpretation Comments Monocytes (test code = Monocytes) 5.4 2.0-12.0 [facility] HospitalFkvywyrMICOJSWAMU4040-14-36 07:51:00 Test Item Value Reference Range Interpretation Comments Eosinophils (test code = 2.3 See_Comment [A utomated message] The Eosinophils) system which ge nerated this result tra nsmitted reference range : <=4.0. The reference r ozzy was not used to int erpret this result as normal/abnormal . [facility] HospitalErjbxkpWZLZYKRAZG9684-63-12 07:51:00 Test Item Value Reference Range Interpretation Comments Lymphocytes (test code = Lymphocytes) 27.7 20.0-40.0 [facility] HospitalYrylwqvBAMOQWHPIE9530-26-11 07:51:00 Test Item Value Reference Range Interpretation Comments Basophils # (test code 0.1 See_Comment [Aut omated message] The = Basophils #) system which generated this result tra nsmitted reference range : <=0.2. The reference r ozzy was not used to int erpret this result as normal/abnormal . [facility] AND [id number] 07:51:00 Test Item Value Reference Range Interpretation Comments UA Urobilinogen (test code = UA 1.0 0.1-1.0 Urobilinogen) [facility] AND [id number] 07:51:00 Test Item Value Reference Range Interpretation Comments UA Turbidity (test code Cloudy *ABN*(09/04/14 = UA Turbidity) 1:51 AM) [facility] AND [id number] 07:51:00 Test Item Value Reference Range Interpretation Comments UA Color (test code = Red *ABN*(09/04/14 1:51 UA Color) AM) [facility] AND [id number] 07:51:00 Test Item Value Reference Range Interpretation Comments UA Ketones (test code Negative *NA*(09/04/14 = UA Ketones) 1:51 AM) [facility] AND [id number] 07:51:00 Test Item Value Reference Range Interpretation Comments UA Glucose (test code Negative (09/04/14 1:51 = UA Glucose) AM) [facility] AND [id number] 07:51:00 Test Item Value Reference Range Interpretation Comments UA Protein (test code = Trace *ABN*(09/04/14 UA Protein) 1:51 AM) [facility] AND [id number] 07:51:00 Test Item Value Reference Range Interpretation Comments UA pH (test code = UA pH) 8.0 1 5.0-8.0 [facility] AND [id number] 07:51:00 Test Item Value Reference Range Interpretation Comments UA Spec Grav (test code = UA Spec 1.015 1 Grav) [facility] AND [id number] 07:51:00 Test Item Value Reference Range Interpretation Comments UA Bili (test code = Negative *NA*(09/04/14 UA Bili) 1:51 AM) [facility] AND [id number] 07:51:00 Test Item Value Reference Range Interpretation Comments UA Blood (test code = Large *ABN*(09/04/14 UA Blood) 1:51 AM) [facility] AND [id number] 07:51:00 Test Item Value Reference Range Interpretation Comments UA Leuk Est (test Negative (09/04/14 1:51 code = UA Leuk Est) AM) [facility] AND [id number] 07:51:00 Test Item Value Reference Range Interpretation Comments UA Nitrite (test code Negative (09/04/14 1:51 = UA Nitrite) AM) [facility] AND [id number] 07:51:00 Test Item Value Reference Range Interpretation Comments UA Amorph Joselin (test code = UA Few /HPF Amorph Joselin) [facility] AND [id number] 07:51:00 Test Item Value Reference Range Interpretation Comments UA RBC (test code 51-100 /HPF See_Comment [Automate d message] The = UA RBC) system which ge nerated this result tra nsmitted reference range : <=2. The reference r ozzy was not used to int erpret this result as normal/abnormal . [facility] AND [id number] 07:51:00 Test Item Value Reference Range Interpretation Comments UA WBC (test code = UA WBC) 6-10 /HPF [facility] AND [id number] 07:51:00 Test Item Value Reference Range Interpretation Comments UA Bacteria (test code = UA Few /HPF Bacteria) [facility] AND [id number] 07:51:00 Test Item Value Reference Range Interpretation Comments UA Sq Epi (test code = UA Sq Occasional /LPF Epi) [facility] [id number] 07:51:00 Test Item Value Reference Range Interpretation Comments ABO/Rh (test code = ABO/Rh) A POS [facility] [id number] 07:51:00 Test Item Value Reference Range Interpretation Comments Antibody Scrn (test Negative (09/04/14 1:51 code = Antibody Scrn) AM) [facility] [id number] 07:51:00 Test Item Value Reference Range Interpretation Comments Albumin Lvl (test code = Albumin Lvl) 3.4 3.5-5.0 [facility] [id number] 07:51:00 Test Item Value Reference Range Interpretation Comments Alk Phos (test code = Alk Phos) 64 39-136 [facility] [id number] 07:51:00 Test Item Value Reference Range Interpretation Comments ALT (test code = ALT) 18 See_Comment [Auto mated message] The system which ge nerated this result transmit gaye reference range : <=65. The reference range was not used to interpr et this result as satish l/abnormal. [facility] [id number] 07:51:00 Test Item Value Reference Range Interpretation Comments AST (test code = AST) 12 See_Comment [Auto mated message] The system which ge nerated this result transmit gaye reference range : <=37. The reference range was not used to interpr et this result as satish l/abnormal. [facility] [id number] 07:51:00 Test Item Value Reference Range Interpretation Comments eGFR (test code = eGFR) 93 [facility] [id number] 07:51:00 Test Item Value Reference Range Interpretation Comments Bili Total (test code = Bili Total) 0.3 0.2-1.3 [facility] [id number] 07:51:00 Test Item Value Reference Range Interpretation Comments Chloride Lvl (test code = Chloride Lvl) 108 95-109 [facility] [id number] 07:51:00 Test Item Value Reference Range Interpretation Comments Sodium Lvl (test code = Sodium Lvl) 138 135-145 [facility] [id number] 07:51:00 Test Item Value Reference Range Interpretation Comments Potassium Lvl (test code = Potassium 3.9 3.5-5.1 Lvl) [facility]2015-01-23 07:51:00 Test Item Value Reference Range Interpretation Comments CO2 (test code = CO2) 22 24-32 [facility]2015-01-23 07:51:00 Test Item Value Reference Range Interpretation Comments Calcium Lvl (test code = Calcium Lvl) 8.8 8.5-10.5 [facility]2015-01-23 07:51:00 Test Item Value Reference Range Interpretation Comments Glucose Lvl (test code = Glucose Lvl) 98 70-99 [facility]2015-01-23 07:51:00 Test Item Value Reference Range Interpretation Comments Total Protein (test code = Total 7.3 6.4-8.4 Protein) [facility]2015-01-23 07:51:00 Test Item Value Reference Range Interpretation Comments BUN (test code = BUN) 12 7- [facility]2015-01-23 07:51:00 Test Item Value Reference Range Interpretation Comments Creatinine Lvl (test code = Creatinine 0.8 0.5-1.4 Lvl) [facility]2015-01-23 07:51:00 Test Item Value Reference Range Interpretation Comments AGAP (test code = AGAP) 11.9 10.0-20.0 [facility]2015-01-23 07:51:00 Test Item Value Reference Range Interpretation Comments B/C Ratio (test code = B/C Ratio) 15 6-25 [facility]2015-01-23 07:51:00 Test Item Value Reference Range Interpretation Comments Globulin (test code = Globulin) 3.9 2.0-4.0 [facility]2015-01-23 07:51:00 Test Item Value Reference Range Interpretation Comments A/G Ratio (test code = A/G Ratio) 0.9 0.7-1.6 [facility]pktaymIWAICQHDTQLQD1567-19-24 07:51:00 Test Item Value Reference Range Interpretation Comments hCG Tot (test code = hCG Tot) no gt [facility]FD[facility]WR[facility]V4212-89-44 07:51:00 Test Item Value Reference Range Interpretation Comments MCHC (test code = MCHC) 33.8 32.0-36.0 [facility]FjvtlrtSLSFKXJPAU4478-15-88 07:51:00 Test Item Value Reference Range Interpretation Comments MCH (test code = MCH) 30.3 pg 27.0-31.0 [facility]TtzkzlrROUUZLERZY7258-96-71 07:51:00 Test Item Value Reference Range Interpretation Comments RDW (test code = RDW) 13.0 11.5-14.5 [facility]XlffsvnIIKQDESCLZ9551-00-54 07:51:00 Test Item Value Reference Range Interpretation Comments MPV (test code = MPV) 8.4 7.4-10.4 [place] [id number] 07:51:00 Test Item Value Reference Range Interpretation Comments Platelet (test code = Platelet) 356 133-450 [facility]JmfhduhIMHNSCWIOD0645-31-13 07:51:00 Test Item Value Reference Range Interpretation Comments RBC (test code = RBC) 4.45 4.20-5.40 [facility]NahmzbcIJXWWPXIJQ6901-45-53 07:51:00 Test Item Value Reference Range Interpretation Comments WBC (test code = WBC) 12.9 3.7-10.4 [facility]KhfbwhfWOLKVXLFDN8075-18-45 07:51:00 Test Item Value Reference Range Interpretation Comments Hgb (test code = Hgb) 13.5 12.0-16.0 [facility] HospitalZfkdsijUAHMHANLBH7971-66-78 07:51:00 Test Item Value Reference Range Interpretation Comments MCV (test code = MCV) 89.7 80.0-98.0 [facility] HospitalTcmkkzrNVQNWCJZHM0157-54-94 07:51:00 Test Item Value Reference Range Interpretation Comments Hct (test code = Hct) 39.9 36.0-48.0 [facility]UlfhrenEPVGQZDIHM5027-55-21 07:51:00 Test Item Value Reference Range Interpretation Comments Eosinophils # (test code 0.3 See_Comment [A utomated message] The = Eosinophils #) system whic h generated this result tra nsmitted reference range : <=0.5. The reference r ozzy was not used to int erpret this result as normal/abnormal . [facility] HospitalMyujszsADKUPCSAFO3212-66-44 07:51:00 Test Item Value Reference Range Interpretation Comments Lymphocytes # (test code = Lymphocytes 3.6 1.0-5.5 #) [facility] HospitalDqvarcgSFUCIZWGDA3673-92-88 07:51:00 Test Item Value Reference Range Interpretation Comments Monocytes # (test code 0.7 See_Comment [Aut omated message] The = Monocytes #) system which generated this result tra nsmitted reference range : <=0.8. The reference r ozzy was not used to int erpret this result as normal/abnormal . [facility] HospitalDninipuHAUWHHQTNX4683-95-03 07:51:00 Test Item Value Reference Range Interpretation Comments Segs (test code = Segs) 63.9 45.0-75.0 [facility] HospitalEvedycxTRXARREDJO4149-16-81 07:51:00 Test Item Value Reference Range Interpretation Comments Segs-Bands # (test code = Segs-Bands #) 8.2 1.5-8.1 [facility] HospitalDsczqyyBVZGRQJIEO8456-61-02 07:51:00 Test Item Value Reference Range Interpretation Comments Basophils (test code = 0.7 See_Comment [Aut omated message] The Basophils) system which ge nerated this result tra nsmitted reference range : <=1.0. The reference r ozzy was not used to int erpret this result as normal/abnormal . [facility] HospitalIbzhxajGWRUWCEMQR9569-49-05 07:51:00 Test Item Value Reference Range Interpretation Comments Monocytes (test code = Monocytes) 5.4 2.0-12.0 [facility] HospitalQdxeabbSYWRAQQJES8847-10-17 07:51:00 Test Item Value Reference Range Interpretation Comments Eosinophils (test code = 2.3 See_Comment [A utomated message] The Eosinophils) system which ge nerated this result tra nsmitted reference range : <=4.0. The reference r ozzy was not used to int erpret this result as normal/abnormal . [facility] HospitalPevqnbnQERYQOOXFF8118-83-54 07:51:00 Test Item Value Reference Range Interpretation Comments Lymphocytes (test code = Lymphocytes) 27.7 20.0-40.0 [facility]QepujbxSVYQLLOYJF4991-92-95 07:51:00 Test Item Value Reference Range Interpretation Comments Basophils # (test code 0.1 See_Comment [Aut omated message] The = Basophils #) system which generated this result tra nsmitted reference range : <=0.2. The reference r ozzy was not used to int erpret this result as normal/abnormal . [facility]2015-01-23 07:51:00 Test Item Value Reference Range Interpretation Comments UA Urobilinogen (test code = UA 1.0 0.1-1.0 Urobilinogen) [facility] AND [id number] 07:51:00 Test Item Value Reference Range Interpretation Comments UA Turbidity (test code Cloudy *ABN*(09/04/14 = UA Turbidity) 1:51 AM) [facility] AND [id number] 07:51:00 Test Item Value Reference Range Interpretation Comments UA Color (test code = Red *ABN*(09/04/14 1:51 UA Color) AM) [facility] AND [id number] 07:51:00 Test Item Value Reference Range Interpretation Comments UA Ketones (test code Negative *NA*(09/04/14 = UA Ketones) 1:51 AM) [facility] AND [id number] 07:51:00 Test Item Value Reference Range Interpretation Comments UA Glucose (test code Negative (09/04/14 1:51 = UA Glucose) AM) [facility] AND [id number] 07:51:00 Test Item Value Reference Range Interpretation Comments UA Protein (test code = Trace *ABN*(09/04/14 UA Protein) 1:51 AM) [facility] AND [id number] 07:51:00 Test Item Value Reference Range Interpretation Comments UA pH (test code = UA pH) 8.0 1 5.0-8.0 [facility] AND [id number] 07:51:00 Test Item Value Reference Range Interpretation Comments UA Spec Grav (test code = UA Spec 1.015 1 Grav) [facility] AND [id number] 07:51:00 Test Item Value Reference Range Interpretation Comments UA Bili (test code = Negative *NA*(09/04/14 UA Bili) 1:51 AM) [facility] AND [id number] 07:51:00 Test Item Value Reference Range Interpretation Comments UA Blood (test code = Large *ABN*(09/04/14 UA Blood) 1:51 AM) [facility] AND [id number] 07:51:00 Test Item Value Reference Range Interpretation Comments UA Leuk Est (test Negative (09/04/14 1:51 code = UA Leuk Est) AM) [facility] AND [id number] 07:51:00 Test Item Value Reference Range Interpretation Comments UA Nitrite (test code Negative (09/04/14 1:51 = UA Nitrite) AM) [facility] [id number] 07:51:00 Test Item Value Reference Range Interpretation Comments UA Amorph Joselin (test code = UA Few /HPF Amorph Joselin) [facility] AND [id number] 07:51:00 Test Item Value Reference Range Interpretation Comments UA RBC (test code 51-100 /HPF See_Comment [Automate d message] The = UA RBC) system which ge nerated this result tra nsmitted reference range : <=2. The reference r ozzy was not used to int erpret this result as normal/abnormal . [facility] AND [id number] 07:51:00 Test Item Value Reference Range Interpretation Comments UA WBC (test code = UA WBC) 6-10 /HPF [facility] AND [id number] 07:51:00 Test Item Value Reference Range Interpretation Comments UA Bacteria (test code = UA Few /HPF Bacteria) [facility] AND [id number] 07:51:00 Test Item Value Reference Range Interpretation Comments UA Sq Epi (test code = UA Sq Occasional /LPF Epi) [facility] [employer] [id number] 07:51:00 Test Item Value Reference Range Interpretation Comments ABO/Rh (test code = ABO/Rh) A POS [facility] [employer] [id number] 07:51:00 Test Item Value Reference Range Interpretation Comments Antibody Scrn (test Negative (09/04/14 1:51 code = Antibody Scrn) AM) [facility] [employer] [id number] 07:51:00 Test Item Value Reference Range Interpretation Comments Albumin Lvl (test code = Albumin Lvl) 3.4 3.5-5.0 [facility] [employer] [id number] 07:51:00 Test Item Value Reference Range Interpretation Comments Alk Phos (test code = Alk Phos) 64 39-136 [facility] [employer] [id number] 07:51:00 Test Item Value Reference Range Interpretation Comments ALT (test code = ALT) 18 See_Comment [Auto mated message] The system which ge nerated this result transmit gaye reference range : <=65. The reference range was not used to interpr et this result as satish l/abnormal. [facility]2015-01-23 07:51:00 Test Item Value Reference Range Interpretation Comments AST (test code = AST) 12 See_Comment [Auto mated message] The system which ge nerated this result transmit gaye reference range : <=37. The reference range was not used to interpr et this result as satish l/abnormal. [facility]2015-01-23 07:51:00 Test Item Value Reference Range Interpretation Comments eGFR (test code = eGFR) 93 [facility]2015-01-23 07:51:00 Test Item Value Reference Range Interpretation Comments Bili Total (test code = Bili Total) 0.3 0.2-1.3 [place] [id number] 07:51:00 Test Item Value Reference Range Interpretation Comments Chloride Lvl (test code = Chloride Lvl) 108 95-109 [facility]2015-01-23 07:51:00 Test Item Value Reference Range Interpretation Comments Sodium Lvl (test code = Sodium Lvl) 138 135-145 [facility]2015-01-23 07:51:00 Test Item Value Reference Range Interpretation Comments Potassium Lvl (test code = Potassium 3.9 3.5-5.1 Lvl) [facility]2015-01-23 07:51:00 Test Item Value Reference Range Interpretation Comments CO2 (test code = CO2) 22 24-32 [facility]2015-01-23 07:51:00 Test Item Value Reference Range Interpretation Comments Calcium Lvl (test code = Calcium Lvl) 8.8 8.5-10.5 [facility]2015-01-23 07:51:00 Test Item Value Reference Range Interpretation Comments Glucose Lvl (test code = Glucose Lvl) 98 70-99 [facility]2015-01-23 07:51:00 Test Item Value Reference Range Interpretation Comments Total Protein (test code = Total 7.3 6.4-8.4 Protein) [facility]2015-01-23 07:51:00 Test Item Value Reference Range Interpretation Comments BUN (test code = BUN) 12 7-22 [facility]2015-01-23 07:51:00 Test Item Value Reference Range Interpretation Comments Creatinine Lvl (test code = Creatinine 0.8 0.5-1.4 Lvl) [facility]2015-01-23 07:51:00 Test Item Value Reference Range Interpretation Comments AGAP (test code = AGAP) 11.9 10.0-20.0 [facility]2015-01-23 07:51:00 Test Item Value Reference Range Interpretation Comments B/C Ratio (test code = B/C Ratio) 15 6-25 [facility]2015-01-23 07:51:00 Test Item Value Reference Range Interpretation Comments Globulin (test code = Globulin) 3.9 2.0-4.0 [facility]2015-01-23 07:51:00 Test Item Value Reference Range Interpretation Comments A/G Ratio (test code = A/G Ratio) 0.9 0.7-1.6 [facility]QJLKXEFEZN4621-09-50 07:51:00 Test Item Value Reference Range Interpretation Comments hCG Tot (test code = hCG Tot) no gt [facility]WtgcphlBVSXFOXYDK3557-93-27 07:51:00 Test Item Value Reference Range Interpretation Comments MCHC (test code = MCHC) 33.8 32.0-36.0 [facility]TtlzaebCTFPLCHUOT1830-16-60 07:51:00 Test Item Value Reference Range Interpretation Comments MCH (test code = MCH) 30.3 pg 27.0-31.0 [facility] HospitalEvcvelpSHPXNEFIYM6098-13-00 07:51:00 Test Item Value Reference Range Interpretation Comments RDW (test code = RDW) 13.0 11.5-14.5 [facility] HospitalMknbvwkUIRXPYXZDH3632-48-74 07:51:00 Test Item Value Reference Range Interpretation Comments MPV (test code = MPV) 8.4 7.4-10.4 [facility] HospitalLknylfoOQCLSXNQWE2241-29-43 07:51:00 Test Item Value Reference Range Interpretation Comments Platelet (test code = Platelet) 356 133-450 [facility] HospitalSraykzlSGFKIWOWNT0300-16-73 07:51:00 Test Item Value Reference Range Interpretation Comments RBC (test code = RBC) 4.45 4.20-5.40 [facility]FhxwqndWSNDFHAZYS0504-74-23 07:51:00 Test Item Value Reference Range Interpretation Comments WBC (test code = WBC) 12.9 3.7-10.4 [facility] HospitalFzkouteWHGKPQQIMR8033-64-96 07:51:00 Test Item Value Reference Range Interpretation Comments Hgb (test code = Hgb) 13.5 12.0-16.0 [facility] HospitalXiexfkiOTDQUNKNRV3137-57-08 07:51:00 Test Item Value Reference Range Interpretation Comments MCV (test code = MCV) 89.7 80.0-98.0 [facility] HospitalCuiqaxdROMPMQDGLJ9016-23-32 07:51:00 Test Item Value Reference Range Interpretation Comments Hct (test code = Hct) 39.9 36.0-48.0 [facility] HospitalJkgczjoSEABCCSLOJ2649-75-85 07:51:00 Test Item Value Reference Range Interpretation Comments Eosinophils # (test code 0.3 See_Comment [A utomated message] The = Eosinophils #) system whic h generated this result tra nsmitted reference range : <=0.5. The reference r ozzy was not used to int erpret this result as normal/abnormal . [facility] HospitalBmtnctyEIAOOMMTHF5918-77-90 07:51:00 Test Item Value Reference Range Interpretation Comments Lymphocytes # (test code = Lymphocytes 3.6 1.0-5.5 #) [facility] HospitalNpehwtwGGBZKBLIBM3547-35-21 07:51:00 Test Item Value Reference Range Interpretation Comments Monocytes # (test code 0.7 See_Comment [Aut omated message] The = Monocytes #) system which generated this result tra nsmitted reference range : <=0.8. The reference r ozzy was not used to int erpret this result as normal/abnormal . [facility] HospitalCujfiiiZJKNLURMXE9500-76-28 07:51:00 Test Item Value Reference Range Interpretation Comments Segs (test code = Segs) 63.9 45.0-75.0 [facility] HospitalGtvcapxLBQEGGEBBT4873-90-55 07:51:00 Test Item Value Reference Range Interpretation Comments Segs-Bands # (test code = Segs-Bands #) 8.2 1.5-8.1 [facility] HospitalBxsfcpaFSEYDJXQET2280-25-14 07:51:00 Test Item Value Reference Range Interpretation Comments Basophils (test code = 0.7 See_Comment [Aut omated message] The Basophils) system which ge nerated this result tra nsmitted reference range : <=1.0. The reference r ozzy was not used to int erpret this result as normal/abnormal . [facility] HospitalGwzxscyBWCLXGXTPP6431-66-03 07:51:00 Test Item Value Reference Range Interpretation Comments Monocytes (test code = Monocytes) 5.4 2.0-12.0 [facility] HospitalZtziozmGKWEUMNIRP4210-86-42 07:51:00 Test Item Value Reference Range Interpretation Comments Eosinophils (test code = 2.3 See_Comment [A utomated message] The Eosinophils) system which ge nerated this result tra nsmitted reference range : <=4.0. The reference r ozzy was not used to int erpret this result as normal/abnormal . [facility] HospitalBtsbymxJMPPUWDSKE3617-30-72 07:51:00 Test Item Value Reference Range Interpretation Comments Lymphocytes (test code = Lymphocytes) 27.7 20.0-40.0 [facility] HospitalPmdykogKXZTWMGXDX8960-70-31 07:51:00 Test Item Value Reference Range Interpretation Comments Basophils # (test code 0.1 See_Comment [Aut omated message] The = Basophils #) system which generated this result tra nsmitted reference range : <=0.2. The reference r ozzy was not used to int erpret this result as normal/abnormal . [facility] AND [id number] 07:51:00 Test Item Value Reference Range Interpretation Comments UA Urobilinogen (test code = UA 1.0 0.1-1.0 Urobilinogen) [facility] AND [id number] 07:51:00 Test Item Value Reference Range Interpretation Comments UA Turbidity (test code Cloudy *ABN*(09/04/14 = UA Turbidity) 1:51 AM) [facility] AND [id number] 07:51:00 Test Item Value Reference Range Interpretation Comments UA Color (test code = Red *ABN*(09/04/14 1:51 UA Color) AM) [facility] AND [id number] 07:51:00 Test Item Value Reference Range Interpretation Comments UA Ketones (test code Negative *NA*(09/04/14 = UA Ketones) 1:51 AM) [facility] AND [id number] 07:51:00 Test Item Value Reference Range Interpretation Comments UA Glucose (test code Negative (09/04/14 1:51 = UA Glucose) AM) [facility] AND [id number] 07:51:00 Test Item Value Reference Range Interpretation Comments UA Protein (test code = Trace *ABN*(09/04/14 UA Protein) 1:51 AM) [facility] AND [id number] 07:51:00 Test Item Value Reference Range Interpretation Comments UA pH (test code = UA pH) 8.0 1 5.0-8.0 [facility] AND [id number] 07:51:00 Test Item Value Reference Range Interpretation Comments UA Spec Grav (test code = UA Spec 1.015 1 Grav) [facility] AND [id number] 07:51:00 Test Item Value Reference Range Interpretation Comments UA Bili (test code = Negative *NA*(09/04/14 UA Bili) 1:51 AM) [facility] AND [id number] 07:51:00 Test Item Value Reference Range Interpretation Comments UA Blood (test code = Large *ABN*(09/04/14 UA Blood) 1:51 AM) [facility] AND [id number] 07:51:00 Test Item Value Reference Range Interpretation Comments UA Leuk Est (test Negative (09/04/14 1:51 code = UA Leuk Est) AM) [facility] AND [id number] 07:51:00 Test Item Value Reference Range Interpretation Comments UA Nitrite (test code Negative (09/04/14 1:51 = UA Nitrite) AM) [facility] AND [id number] 07:51:00 Test Item Value Reference Range Interpretation Comments UA Amorph Joselin (test code = UA Few /HPF Amorph Joselin) [facility] AND [id number] 07:51:00 Test Item Value Reference Range Interpretation Comments UA RBC (test code 51-100 /HPF See_Comment [Automate d message] The = UA RBC) system which ge nerated this result tra nsmitted reference range : <=2. The reference r ozzy was not used to int erpret this result as normal/abnormal . [facility] AND [id number] 07:51:00 Test Item Value Reference Range Interpretation Comments UA WBC (test code = UA WBC) 6-10 /HPF [facility] AND [id number] 07:51:00 Test Item Value Reference Range Interpretation Comments UA Bacteria (test code = UA Few /HPF Bacteria) [facility] AND [id number] 07:51:00 Test Item Value Reference Range Interpretation Comments UA Sq Epi (test code = UA Sq Occasional /LPF Epi) [facility] [employer] [facility] [id number] 07:51:00 Test Item Value Reference Range Interpretation Comments ABO/Rh (test code = ABO/Rh) A POS [facility] [employer] [facility] [id number] 07:51:00 Test Item Value Reference Range Interpretation Comments Antibody Scrn (test Negative (09/04/14 1:51 code = Antibody Scrn) AM) [facility] [id number] 07:51:00 Test Item Value Reference Range Interpretation Comments Albumin Lvl (test code = Albumin Lvl) 3.4 3.5-5.0 [facility] [id number] 07:51:00 Test Item Value Reference Range Interpretation Comments Alk Phos (test code = Alk Phos) 64 39-136 [facility] [id number] 07:51:00 Test Item Value Reference Range Interpretation Comments ALT (test code = ALT) 18 See_Comment [Auto mated message] The system which ge nerated this result transmit gaye reference range : <=65. The reference range was not used to interpr et this result as satish l/abnormal. [facility] [employer] [id number] 07:51:00 Test Item Value Reference Range Interpretation Comments AST (test code = AST) 12 See_Comment [Auto mated message] The system which ge nerated this result transmit gaye reference range : <=37. The reference range was not used to interpr et this result as satish l/abnormal. [facility] [employer] [id number] 07:51:00 Test Item Value Reference Range Interpretation Comments eGFR (test code = eGFR) 93 [facility] [id number] 07:51:00 Test Item Value Reference Range Interpretation Comments Bili Total (test code = Bili Total) 0.3 0.2-1.3 [facility] [id number] 07:51:00 Test Item Value Reference Range Interpretation Comments Chloride Lvl (test code = Chloride Lvl) 108 95-109 [facility] [id number] 07:51:00 Test Item Value Reference Range Interpretation Comments Sodium Lvl (test code = Sodium Lvl) 138 135-145 [facility]2015-01-23 07:51:00 Test Item Value Reference Range Interpretation Comments Potassium Lvl (test code = Potassium 3.9 3.5-5.1 Lvl) [facility]2015-01-23 07:51:00 Test Item Value Reference Range Interpretation Comments CO2 (test code = CO2) 22 24-32 [facility]2015-01-23 07:51:00 Test Item Value Reference Range Interpretation Comments Calcium Lvl (test code = Calcium Lvl) 8.8 8.5-10.5 [facility]2015-01-23 07:51:00 Test Item Value Reference Range Interpretation Comments Glucose Lvl (test code = Glucose Lvl) 98 70-99 [facility]2015-01-23 07:51:00 Test Item Value Reference Range Interpretation Comments Total Protein (test code = Total 7.3 6.4-8.4 Protein) [facility]2015-01-23 07:51:00 Test Item Value Reference Range Interpretation Comments BUN (test code = BUN) 12 - [facility]2015-01-23 07:51:00 Test Item Value Reference Range Interpretation Comments Creatinine Lvl (test code = Creatinine 0.8 0.5-1.4 Lvl) [facility]2015-01-23 07:51:00 Test Item Value Reference Range Interpretation Comments AGAP (test code = AGAP) 11.9 10.0-20.0 [facility]2015-01-23 07:51:00 Test Item Value Reference Range Interpretation Comments B/C Ratio (test code = B/C Ratio) 15 6-25 [facility]2015-01-23 07:51:00 Test Item Value Reference Range Interpretation Comments Globulin (test code = Globulin) 3.9 2.0-4.0 [facility]2015-01-23 07:51:00 Test Item Value Reference Range Interpretation Comments A/G Ratio (test code = A/G Ratio) 0.9 0.7-1.6 [id number] 07:51:00 Test Item Value Reference Range Interpretation Comments hCG Tot (test code = hCG Tot) no gt [facility]shimojNOWQCEHRQQ5057-32-20 07:51:00 Test Item Value Reference Range Interpretation Comments MCHC (test code = MCHC) 33.8 32.0-36.0 [facility]HyssezyOJRWFYQTRN8155-50-72 07:51:00 Test Item Value Reference Range Interpretation Comments MCH (test code = MCH) 30.3 pg 27.0-31.0 [facility]AdisnvqSAMCIDRZRD0888-80-43 07:51:00 Test Item Value Reference Range Interpretation Comments RDW (test code = RDW) 13.0 11.5-14.5 [facility]PdgcghjMJOAKPHYUD6990-26-24 07:51:00 Test Item Value Reference Range Interpretation Comments MPV (test code = MPV) 8.4 7.4-10.4 [facility]EmqlbxgSGDUEPKOEM6500-47-01 07:51:00 Test Item Value Reference Range Interpretation Comments Platelet (test code = Platelet) 356 133-450 [facility]QbnzqygDDNIOORHDM6923-60-48 07:51:00 Test Item Value Reference Range Interpretation Comments RBC (test code = RBC) 4.45 4.20-5.40 [facility] HospitalEbexadjOUVZQXHPZA0232-76-02 07:51:00 Test Item Value Reference Range Interpretation Comments WBC (test code = WBC) 12.9 3.7-10.4 [facility] HospitalHrgkvakNQXYXDJEQA5020-05-31 07:51:00 Test Item Value Reference Range Interpretation Comments Hgb (test code = Hgb) 13.5 12.0-16.0 [facility] HospitalVjasiefWCUJAXBPAD3146-94-98 07:51:00 Test Item Value Reference Range Interpretation Comments MCV (test code = MCV) 89.7 80.0-98.0 [facility]OjjqmfbTBAJYKYFZY0335-06-28 07:51:00 Test Item Value Reference Range Interpretation Comments Hct (test code = Hct) 39.9 36.0-48.0 [facility] HospitalRdkkrtqGVXBIKQYDC8107-29-84 07:51:00 Test Item Value Reference Range Interpretation Comments Eosinophils # (test code 0.3 See_Comment [A utomated message] The = Eosinophils #) system whic h generated this result tra nsmitted reference range : <=0.5. The reference r ozzy was not used to int erpret this result as normal/abnormal . [facility] HospitalCcbfbezRDSGNUJPGW7555-84-89 07:51:00 Test Item Value Reference Range Interpretation Comments Lymphocytes # (test code = Lymphocytes 3.6 1.0-5.5 #) [facility] HospitalRxghdndFPXVFKCUZT5970-29-17 07:51:00 Test Item Value Reference Range Interpretation Comments Monocytes # (test code 0.7 See_Comment [Aut omated message] The = Monocytes #) system which generated this result tra nsmitted reference range : <=0.8. The reference r ozzy was not used to int erpret this result as normal/abnormal . [facility] HospitalRvldidoMBWGOAOKIC9767-22-32 07:51:00 Test Item Value Reference Range Interpretation Comments Segs (test code = Segs) 63.9 45.0-75.0 [facility] HospitalYsaaplqZYHAFZHRUT5658-40-19 07:51:00 Test Item Value Reference Range Interpretation Comments Segs-Bands # (test code = Segs-Bands #) 8.2 1.5-8.1 [facility] HospitalHgcryicRTUBEICMYX9726-35-58 07:51:00 Test Item Value Reference Range Interpretation Comments Basophils (test code = 0.7 See_Comment [Aut omated message] The Basophils) system which ge nerated this result tra nsmitted reference range : <=1.0. The reference r ozzy was not used to int erpret this result as normal/abnormal . [facility] HospitalHdipupzTLSGZPPGBM0956-00-30 07:51:00 Test Item Value Reference Range Interpretation Comments Monocytes (test code = Monocytes) 5.4 2.0-12.0 [facility] HospitalIbwtboqGCRLKDWOEI1432-99-87 07:51:00 Test Item Value Reference Range Interpretation Comments Eosinophils (test code = 2.3 See_Comment [A utomated message] The Eosinophils) system which ge nerated this result tra nsmitted reference range : <=4.0. The reference r ozzy was not used to int erpret this result as normal/abnormal . [facility] HospitalVijrjazNHQQLTYOEB9054-41-13 07:51:00 Test Item Value Reference Range Interpretation Comments Lymphocytes (test code = Lymphocytes) 27.7 20.0-40.0 [facility] HospitalWrawtezFVDMQYPRHF3010-05-76 07:51:00 Test Item Value Reference Range Interpretation Comments Basophils # (test code 0.1 See_Comment [Aut omated message] The = Basophils #) system which generated this result tra nsmitted reference range : <=0.2. The reference r ozzy was not used to int erpret this result as normal/abnormal . [facility] AND [id number] 07:51:00 Test Item Value Reference Range Interpretation Comments UA Urobilinogen (test code = UA 1.0 0.1-1.0 Urobilinogen) [facility] AND [id number] 07:51:00 Test Item Value Reference Range Interpretation Comments UA Turbidity (test code Cloudy *ABN*(09/04/14 = UA Turbidity) 1:51 AM) [facility] AND [id number] 07:51:00 Test Item Value Reference Range Interpretation Comments UA Color (test code = Red *ABN*(09/04/14 1:51 UA Color) AM) [facility] AND [id number] 07:51:00 Test Item Value Reference Range Interpretation Comments UA Ketones (test code Negative *NA*(09/04/14 = UA Ketones) 1:51 AM) [facility] AND [id number] 07:51:00 Test Item Value Reference Range Interpretation Comments UA Glucose (test code Negative (09/04/14 1:51 = UA Glucose) AM) [facility] AND [id number] 07:51:00 Test Item Value Reference Range Interpretation Comments UA Protein (test code = Trace *ABN*(09/04/14 UA Protein) 1:51 AM) [facility] AND [id number] 07:51:00 Test Item Value Reference Range Interpretation Comments UA pH (test code = UA pH) 8.0 1 5.0-8.0 [facility] AND [id number] 07:51:00 Test Item Value Reference Range Interpretation Comments UA Spec Grav (test code = UA Spec 1.015 1 Grav) [facility] AND [id number] 07:51:00 Test Item Value Reference Range Interpretation Comments UA Bili (test code = Negative *NA*(09/04/14 UA Bili) 1:51 AM) [facility] AND [id number] 07:51:00 Test Item Value Reference Range Interpretation Comments UA Blood (test code = Large *ABN*(09/04/14 UA Blood) 1:51 AM) [facility] AND [id number] 07:51:00 Test Item Value Reference Range Interpretation Comments UA Leuk Est (test Negative (09/04/14 1:51 code = UA Leuk Est) AM) [facility] [id number] 07:51:00 Test Item Value Reference Range Interpretation Comments UA Nitrite (test code Negative (09/04/14 1:51 = UA Nitrite) AM) [facility] AND [id number] 07:51:00 Test Item Value Reference Range Interpretation Comments UA Amorph Joselin (test code = UA Few /HPF Amorph Joselin) [facility] AND [id number] 07:51:00 Test Item Value Reference Range Interpretation Comments UA RBC (test code 51-100 /HPF See_Comment [Automate d message] The = UA RBC) system which ge nerated this result tra nsmitted reference range : <=2. The reference r ozzy was not used to int erpret this result as normal/abnormal . [facility] [id number] 07:51:00 Test Item Value Reference Range Interpretation Comments UA WBC (test code = UA WBC) 6-10 /HPF [facility] AND [id number] 07:51:00 Test Item Value Reference Range Interpretation Comments UA Bacteria (test code = UA Few /HPF Bacteria) [facility] AND [id number] 07:51:00 Test Item Value Reference Range Interpretation Comments UA Sq Epi (test code = UA Sq Occasional /LPF Epi) [facility] [employer] [id number] 07:51:00 Test Item Value Reference Range Interpretation Comments ABO/Rh (test code = ABO/Rh) A POS [facility] [employer] [id number] 07:51:00 Test Item Value Reference Range Interpretation Comments Antibody Scrn (test Negative (09/04/14 1:51 code = Antibody Scrn) AM) [facility] [employer] [id number] 07:51:00 Test Item Value Reference Range Interpretation Comments Albumin Lvl (test code = Albumin Lvl) 3.4 3.5-5.0 [facility] [employer] [id number] 07:51:00 Test Item Value Reference Range Interpretation Comments Alk Phos (test code = Alk Phos) 64 39-136 [facility]2015-01-23 07:51:00 Test Item Value Reference Range Interpretation Comments ALT (test code = ALT) 18 See_Comment [Auto mated message] The system which ge nerated this result transmit gaye reference range : <=65. The reference range was not used to interpr et this result as satish l/abnormal. [facility]2015-01-23 07:51:00 Test Item Value Reference Range Interpretation Comments AST (test code = AST) 12 See_Comment [Auto mated message] The system which ge nerated this result transmit gaye reference range : <=37. The reference range was not used to interpr et this result as satish l/abnormal. [facility]2015-01-23 07:51:00 Test Item Value Reference Range Interpretation Comments eGFR (test code = eGFR) 93 [facility]2015-01-23 07:51:00 Test Item Value Reference Range Interpretation Comments Bili Total (test code = Bili Total) 0.3 0.2-1.3 [facility]2015-01-23 07:51:00 Test Item Value Reference Range Interpretation Comments Chloride Lvl (test code = Chloride Lvl) 108 95-109 [facility]2015-01-23 07:51:00 Test Item Value Reference Range Interpretation Comments Sodium Lvl (test code = Sodium Lvl) 138 135-145 [facility]2015-01-23 07:51:00 Test Item Value Reference Range Interpretation Comments Potassium Lvl (test code = Potassium 3.9 3.5-5.1 Lvl) [facility]2015-01-23 07:51:00 Test Item Value Reference Range Interpretation Comments CO2 (test code = CO2) 22 24-32 [facility]2015-01-23 07:51:00 Test Item Value Reference Range Interpretation Comments Calcium Lvl (test code = Calcium Lvl) 8.8 8.5-10.5 [facility]2015-01-23 07:51:00 Test Item Value Reference Range Interpretation Comments Glucose Lvl (test code = Glucose Lvl) 98 70-99 [facility]2015-01-23 07:51:00 Test Item Value Reference Range Interpretation Comments Total Protein (test code = Total 7.3 6.4-8.4 Protein) [place] [id number] 07:51:00 Test Item Value Reference Range Interpretation Comments BUN (test code = BUN) 12 7- [facility]2015-01-23 07:51:00 Test Item Value Reference Range Interpretation Comments Creatinine Lvl (test code = Creatinine 0.8 0.5-1.4 Lvl) [facility]2015-01-23 07:51:00 Test Item Value Reference Range Interpretation Comments AGAP (test code = AGAP) 11.9 10.0-20.0 [facility]2015-01-23 07:51:00 Test Item Value Reference Range Interpretation Comments B/C Ratio (test code = B/C Ratio) 15 6-25 [facility]2015-01-23 07:51:00 Test Item Value Reference Range Interpretation Comments Globulin (test code = Globulin) 3.9 2.0-4.0 [facility]2015-01-23 07:51:00 Test Item Value Reference Range Interpretation Comments A/G Ratio (test code = A/G Ratio) 0.9 0.7-1.6 [facility]hguuyhKOGSJPDYLORAP4558-78-42 07:51:00 Test Item Value Reference Range Interpretation Comments hCG Tot (test code = hCG Tot) no gt [facility]SpdaapoFMMAVLDABH1524-77-40 07:51:00 Test Item Value Reference Range Interpretation Comments MCHC (test code = MCHC) 33.8 32.0-36.0 [facility]FrciroqPWJWRIZBDD7522-56-04 07:51:00 Test Item Value Reference Range Interpretation Comments MCH (test code = MCH) 30.3 pg 27.0-31.0 [facility]GtsdcddLPMRRHXKZQ5047-52-99 07:51:00 Test Item Value Reference Range Interpretation Comments RDW (test code = RDW) 13.0 11.5-14.5 [facility]LpzrxbjKIHODQAXRC4115-13-03 07:51:00 Test Item Value Reference Range Interpretation Comments MPV (test code = MPV) 8.4 7.4-10.4 [facility] HospitalDbmydhpHTXGKWDAHS7015-34-34 07:51:00 Test Item Value Reference Range Interpretation Comments Platelet (test code = Platelet) 356 133-450 [facility] HospitalBsylwfiWGHACRLECS6477-42-55 07:51:00 Test Item Value Reference Range Interpretation Comments RBC (test code = RBC) 4.45 4.20-5.40 [facility]OpgkpmfSMBBCLKPWX7409-15-49 07:51:00 Test Item Value Reference Range Interpretation Comments WBC (test code = WBC) 12.9 3.7-10.4 [facility] HospitalXywpdbuYPPGVFLCBX8042-16-68 07:51:00 Test Item Value Reference Range Interpretation Comments Hgb (test code = Hgb) 13.5 12.0-16.0 [facility] HospitalYumwrhiUTXCUDONSB7631-81-77 07:51:00 Test Item Value Reference Range Interpretation Comments MCV (test code = MCV) 89.7 80.0-98.0 [facility]IqtbxynSXFMNJRIKP2158-86-66 07:51:00 Test Item Value Reference Range Interpretation Comments Hct (test code = Hct) 39.9 36.0-48.0 [facility] HospitalZwrwfzjHZYAYFKXGQ1752-20-54 07:51:00 Test Item Value Reference Range Interpretation Comments Eosinophils # (test code 0.3 See_Comment [A utomated message] The = Eosinophils #) system whic h generated this result tra nsmitted reference range : <=0.5. The reference r ozzy was not used to int erpret this result as normal/abnormal . [facility] HospitalKjbksmpCHVPLZYYDN6523-55-73 07:51:00 Test Item Value Reference Range Interpretation Comments Lymphocytes # (test code = Lymphocytes 3.6 1.0-5.5 #) [facility] HospitalDqzhninWZNEZASHQK6532-41-57 07:51:00 Test Item Value Reference Range Interpretation Comments Monocytes # (test code 0.7 See_Comment [Aut omated message] The = Monocytes #) system which generated this result tra nsmitted reference range : <=0.8. The reference r ozzy was not used to int erpret this result as normal/abnormal . [facility] HospitalGgdjidtTLWNEBVDSM6663-95-16 07:51:00 Test Item Value Reference Range Interpretation Comments Segs (test code = Segs) 63.9 45.0-75.0 [facility] HospitalZrjnebuMZROZWLBGF0979-95-88 07:51:00 Test Item Value Reference Range Interpretation Comments Segs-Bands # (test code = Segs-Bands #) 8.2 1.5-8.1 [facility] HospitalM[id number] 07:51:00 Test Item Value Reference Range Interpretation Comments Basophils (test code = 0.7 See_Comment [Aut omated message] The Basophils) system which ge nerated this result tra nsmitted reference range : <=1.0. The reference r ozzy was not used to int erpret this result as normal/abnormal . [facility] HospitalEoxkficVVLBVHAZDM7114-70-50 07:51:00 Test Item Value Reference Range Interpretation Comments Monocytes (test code = Monocytes) 5.4 2.0-12.0 [facility] HospitalDgmsechKUFXDGIGZM0863-95-07 07:51:00 Test Item Value Reference Range Interpretation Comments Eosinophils (test code = 2.3 See_Comment [A utomated message] The Eosinophils) system which ge nerated this result tra nsmitted reference range : <=4.0. The reference r ozzy was not used to int erpret this result as normal/abnormal . [facility] HospitalTitvvwtSQGCPYHPBV5703-19-68 07:51:00 Test Item Value Reference Range Interpretation Comments Lymphocytes (test code = Lymphocytes) 27.7 20.0-40.0 [facility] HospitalCysypacDWZVNTAZKC1001-96-92 07:51:00 Test Item Value Reference Range Interpretation Comments Basophils # (test code 0.1 See_Comment [Aut omated message] The = Basophils #) system which generated this result tra nsmitted reference range : <=0.2. The reference r ozzy was not used to int erpret this result as normal/abnormal . [facility] AND [id number] 07:51:00 Test Item Value Reference Range Interpretation Comments UA Urobilinogen (test code = UA 1.0 0.1-1.0 Urobilinogen) [facility] AND [id number] 07:51:00 Test Item Value Reference Range Interpretation Comments UA Turbidity (test code Cloudy *ABN*(09/04/14 = UA Turbidity) 1:51 AM) [facility] AND [id number] 07:51:00 Test Item Value Reference Range Interpretation Comments UA Color (test code = Red *ABN*(09/04/14 1:51 UA Color) AM) [facility] AND [id number] 07:51:00 Test Item Value Reference Range Interpretation Comments UA Ketones (test code Negative *NA*(09/04/14 = UA Ketones) 1:51 AM) [facility] AND [id number] 07:51:00 Test Item Value Reference Range Interpretation Comments UA Glucose (test code Negative (09/04/14 1:51 = UA Glucose) AM) [facility] AND [id number] 07:51:00 Test Item Value Reference Range Interpretation Comments UA Protein (test code = Trace *ABN*(09/04/14 UA Protein) 1:51 AM) [facility] AND [id number] 07:51:00 Test Item Value Reference Range Interpretation Comments UA pH (test code = UA pH) 8.0 1 5.0-8.0 [facility] AND [id number] 07:51:00 Test Item Value Reference Range Interpretation Comments UA Spec Grav (test code = UA Spec 1.015 1 Grav) [facility] AND [id number] 07:51:00 Test Item Value Reference Range Interpretation Comments UA Bili (test code = Negative *NA*(09/04/14 UA Bili) 1:51 AM) [facility] AND [id number] 07:51:00 Test Item Value Reference Range Interpretation Comments UA Blood (test code = Large *ABN*(09/04/14 UA Blood) 1:51 AM) [facility] AND [id number] 07:51:00 Test Item Value Reference Range Interpretation Comments UA Leuk Est (test Negative (09/04/14 1:51 code = UA Leuk Est) AM) [facility] AND [id number] 07:51:00 Test Item Value Reference Range Interpretation Comments UA Nitrite (test code Negative (09/04/14 1:51 = UA Nitrite) AM) [facility] AND [id number] 07:51:00 Test Item Value Reference Range Interpretation Comments UA Amorph Joselin (test code = UA Few /HPF Amorph Joselin) [facility] AND [id number] 07:51:00 Test Item Value Reference Range Interpretation Comments UA RBC (test code 51-100 /HPF See_Comment [Automate d message] The = UA RBC) system which ge nerated this result tra nsmitted reference range : <=2. The reference r ozzy was not used to int erpret this result as normal/abnormal . [facility] AND [id number] 07:51:00 Test Item Value Reference Range Interpretation Comments UA WBC (test code = UA WBC) 6-10 /HPF [facility] [id number] 07:51:00 Test Item Value Reference Range Interpretation Comments UA Bacteria (test code = UA Few /HPF Bacteria) [facility] AND [id number] 07:51:00 Test Item Value Reference Range Interpretation Comments UA Sq Epi (test code = UA Sq Occasional /LPF Epi) [facility] [employer] [facility] [id number] 07:51:00 Test Item Value Reference Range Interpretation Comments ABO/Rh (test code = ABO/Rh) A POS [facility] [employer] [facility] [id number] 07:51:00 Test Item Value Reference Range Interpretation Comments Antibody Scrn (test Negative (09/04/14 1:51 code = Antibody Scrn) AM) [facility] [id number] 07:51:00 Test Item Value Reference Range Interpretation Comments Albumin Lvl (test code = Albumin Lvl) 3.4 3.5-5.0 [facility] [employer] [id number] 07:51:00 Test Item Value Reference Range Interpretation Comments Alk Phos (test code = Alk Phos) 64 39-136 [facility] [employer] [id number] 07:51:00 Test Item Value Reference Range Interpretation Comments ALT (test code = ALT) 18 See_Comment [Auto mated message] The system which ge nerated this result transmit gaye reference range : <=65. The reference range was not used to interpr et this result as satish l/abnormal. [facility] [employer] [id number] 07:51:00 Test Item Value Reference Range Interpretation Comments AST (test code = AST) 12 See_Comment [Auto mated message] The system which ge nerated this result transmit gaye reference range : <=37. The reference range was not used to interpr et this result as satish l/abnormal. [facility] [employer] [id number] 07:51:00 Test Item Value Reference Range Interpretation Comments eGFR (test code = eGFR) 93 [facility] [id number] 07:51:00 Test Item Value Reference Range Interpretation Comments Bili Total (test code = Bili Total) 0.3 0.2-1.3 [facility]2015-01-23 07:51:00 Test Item Value Reference Range Interpretation Comments Chloride Lvl (test code = Chloride Lvl) 108 95-109 [facility]2015-01-23 07:51:00 Test Item Value Reference Range Interpretation Comments Sodium Lvl (test code = Sodium Lvl) 138 135-145 [facility]2015-01-23 07:51:00 Test Item Value Reference Range Interpretation Comments Potassium Lvl (test code = Potassium 3.9 3.5-5.1 Lvl) [facility]2015-01-23 07:51:00 Test Item Value Reference Range Interpretation Comments CO2 (test code = CO2) 22 24-32 [facility]2015-01-23 07:51:00 Test Item Value Reference Range Interpretation Comments Calcium Lvl (test code = Calcium Lvl) 8.8 8.5-10.5 [facility]2015-01-23 07:51:00 Test Item Value Reference Range Interpretation Comments Glucose Lvl (test code = Glucose Lvl) 98 70-99 [facility]2015-01-23 07:51:00 Test Item Value Reference Range Interpretation Comments Total Protein (test code = Total 7.3 6.4-8.4 Protein) [facility]2015-01-23 07:51:00 Test Item Value Reference Range Interpretation Comments BUN (test code = BUN) 12 - [facility]2015-01-23 07:51:00 Test Item Value Reference Range Interpretation Comments Creatinine Lvl (test code = Creatinine 0.8 0.5-1.4 Lvl) [facility]2015-01-23 07:51:00 Test Item Value Reference Range Interpretation Comments AGAP (test code = AGAP) 11.9 10.0-20.0 [facility]2015-01-23 07:51:00 Test Item Value Reference Range Interpretation Comments B/C Ratio (test code = B/C Ratio) 15 6-25 [facility]2015-01-23 07:51:00 Test Item Value Reference Range Interpretation Comments Globulin (test code = Globulin) 3.9 2.0-4.0 [facility]2015-01-23 07:51:00 Test Item Value Reference Range Interpretation Comments A/G Ratio (test code = A/G Ratio) 0.9 0.7-1.6 [id number] 07:51:00 Test Item Value Reference Range Interpretation Comments hCG Tot (test code = hCG Tot) no gt [id number] 07:51:00 Test Item Value Reference Range Interpretation Comments MCHC (test code = MCHC) 33.8 32.0-36.0 [facility]EmmabshQUNKVTNFAB9513-37-69 07:51:00 Test Item Value Reference Range Interpretation Comments MCH (test code = MCH) 30.3 pg 27.0-31.0 [facility] HospitalLtaiklmHFKZTQSNYR7862-66-79 07:51:00 Test Item Value Reference Range Interpretation Comments RDW (test code = RDW) 13.0 11.5-14.5 [facility] HospitalIcxwmimERRQYWXGEG3447-79-20 07:51:00 Test Item Value Reference Range Interpretation Comments MPV (test code = MPV) 8.4 7.4-10.4 [facility] HospitalNyohglfPXRRMJCCGB6514-89-66 07:51:00 Test Item Value Reference Range Interpretation Comments Platelet (test code = Platelet) 356 133-450 [facility] HospitalLrfpbwnVRAYBFOOIU4405-77-33 07:51:00 Test Item Value Reference Range Interpretation Comments RBC (test code = RBC) 4.45 4.20-5.40 [facility] HospitalTbcvjspGYYGYGOXUC0071-03-66 07:51:00 Test Item Value Reference Range Interpretation Comments WBC (test code = WBC) 12.9 3.7-10.4 [facility]IDGJEHFP7296-61-93 07:51:00 Test Item Value Reference Range Interpretation Comments Hgb (test code = Hgb) 13.5 12.0-16.0 [facility]StzsfoiUEGVTOBPUH2779-16-04 07:51:00 Test Item Value Reference Range Interpretation Comments MCV (test code = MCV) 89.7 80.0-98.0 [facility]VwvijdnRRYKCULQJO3446-77-79 07:51:00 Test Item Value Reference Range Interpretation Comments Hct (test code = Hct) 39.9 36.0-48.0 [facility]IsxhzxfPMIGMEPYGP9781-25-26 07:51:00 Test Item Value Reference Range Interpretation Comments Eosinophils # (test code 0.3 See_Comment [A utomated message] The = Eosinophils #) system whic h generated this result tra nsmitted reference range : <=0.5. The reference r ozzy was not used to int erpret this result as normal/abnormal . [facility]GxukypaOGHZUKAIFK3362-49-05 07:51:00 Test Item Value Reference Range Interpretation Comments Lymphocytes # (test code = Lymphocytes 3.6 1.0-5.5 #) [facility]OcjnmzaAIIOIYPWGW9701-55-98 07:51:00 Test Item Value Reference Range Interpretation Comments Monocytes # (test code 0.7 See_Comment [Aut omated message] The = Monocytes #) system which generated this result tra nsmitted reference range : <=0.8. The reference r ozzy was not used to int erpret this result as normal/abnormal . [facility] HospitalZvfwmcbCIFVPTJMNA1259-84-77 07:51:00 Test Item Value Reference Range Interpretation Comments Segs (test code = Segs) 63.9 45.0-75.0 [facility]CdzlfmvFFARYNHCWD0300-65-97 07:51:00 Test Item Value Reference Range Interpretation Comments Segs-Bands # (test code = Segs-Bands #) 8.2 1.5-8.1 [facility]XpitcptHSRLFMTQET8389-90-32 07:51:00 Test Item Value Reference Range Interpretation Comments Basophils (test code = 0.7 See_Comment [Aut omated message] The Basophils) system which ge nerated this result tra nsmitted reference range : <=1.0. The reference r ozzy was not used to int erpret this result as normal/abnormal . [facility]SjbtnygOJQNWIWZOZ2246-56-54 07:51:00 Test Item Value Reference Range Interpretation Comments Monocytes (test code = Monocytes) 5.4 2.0-12.0 [facility] HospitalDvuunqjITCPIQNYNZ3823-93-67 07:51:00 Test Item Value Reference Range Interpretation Comments Eosinophils (test code = 2.3 See_Comment [A utomated message] The Eosinophils) system which ge nerated this result tra nsmitted reference range : <=4.0. The reference r ozzy was not used to int erpret this result as normal/abnormal . [facility] HospitalOdwyzpkAMDNACSMKA1098-07-93 07:51:00 Test Item Value Reference Range Interpretation Comments Lymphocytes (test code = Lymphocytes) 27.7 20.0-40.0 [facility] Gl[id number] 07:51:00 Test Item Value Reference Range Interpretation Comments Basophils # (test code 0.1 See_Comment [Aut omated message] The = Basophils #) system which generated this result tra nsmitted reference range : <=0.2. The reference r ozzy was not used to int erpret this result as normal/abnormal . [facility] AND [id number] 07:51:00 Test Item Value Reference Range Interpretation Comments UA Urobilinogen (test code = UA 1.0 0.1-1.0 Urobilinogen) [facility] AND [id number] 07:51:00 Test Item Value Reference Range Interpretation Comments UA Turbidity (test code Cloudy *ABN*(09/04/14 = UA Turbidity) 1:51 AM) [facility] AND [id number] 07:51:00 Test Item Value Reference Range Interpretation Comments UA Color (test code = Red *ABN*(09/04/14 1:51 UA Color) AM) [facility] AND [id number] 07:51:00 Test Item Value Reference Range Interpretation Comments UA Ketones (test code Negative *NA*(09/04/14 = UA Ketones) 1:51 AM) [facility] AND [id number] 07:51:00 Test Item Value Reference Range Interpretation Comments UA Glucose (test code Negative (09/04/14 1:51 = UA Glucose) AM) [facility] AND [id number] 07:51:00 Test Item Value Reference Range Interpretation Comments UA Protein (test code = Trace *ABN*(09/04/14 UA Protein) 1:51 AM) [facility] AND [id number] 07:51:00 Test Item Value Reference Range Interpretation Comments UA pH (test code = UA pH) 8.0 1 5.0-8.0 [facility] AND [id number] 07:51:00 Test Item Value Reference Range Interpretation Comments UA Spec Grav (test code = UA Spec 1.015 1 Grav) [facility] AND [id number] 07:51:00 Test Item Value Reference Range Interpretation Comments UA Bili (test code = Negative *NA*(09/04/14 UA Bili) 1:51 AM) [facility] AND [id number] 07:51:00 Test Item Value Reference Range Interpretation Comments UA Blood (test code = Large *ABN*(09/04/14 UA Blood) 1:51 AM) [facility] AND [id number] 07:51:00 Test Item Value Reference Range Interpretation Comments UA Leuk Est (test Negative (09/04/14 1:51 code = UA Leuk Est) AM) [facility] AND [id number] 07:51:00 Test Item Value Reference Range Interpretation Comments UA Nitrite (test code Negative (09/04/14 1:51 = UA Nitrite) AM) [facility] AND [id number] 07:51:00 Test Item Value Reference Range Interpretation Comments UA Amorph Joselin (test code = UA Few /HPF Amorph Joselin) [facility] AND [id number] 07:51:00 Test Item Value Reference Range Interpretation Comments UA RBC (test code 51-100 /HPF See_Comment [Automate d message] The = UA RBC) system which ge nerated this result tra nsmitted reference range : <=2. The reference r ozzy was not used to int erpret this result as normal/abnormal . [facility] AND [id number] 07:51:00 Test Item Value Reference Range Interpretation Comments UA WBC (test code = UA WBC) 6-10 /HPF [facility] AND [id number] 07:51:00 Test Item Value Reference Range Interpretation Comments UA Bacteria (test code = UA Few /HPF Bacteria) [facility] AND [id number] 07:51:00 Test Item Value Reference Range Interpretation Comments UA Sq Epi (test code = UA Sq Occasional /LPF Epi) [facility] [employer] [id number] 07:51:00 Test Item Value Reference Range Interpretation Comments ABO/Rh (test code = ABO/Rh) A POS [facility] [employer] [id number] 07:51:00 Test Item Value Reference Range Interpretation Comments Antibody Scrn (test Negative (09/04/14 1:51 code = Antibody Scrn) AM) [facility] [employer] [id number] 07:51:00 Test Item Value Reference Range Interpretation Comments Albumin Lvl (test code = Albumin Lvl) 3.4 3.5-5.0 [facility]2015-01-23 07:51:00 Test Item Value Reference Range Interpretation Comments Alk Phos (test code = Alk Phos) 64 39-136 [facility]2015-01-23 07:51:00 Test Item Value Reference Range Interpretation Comments ALT (test code = ALT) 18 See_Comment [Auto mated message] The system which ge nerated this result transmit gaye reference range : <=65. The reference range was not used to interpr et this result as satish l/abnormal. [place] [id number] 07:51:00 Test Item Value Reference Range Interpretation Comments AST (test code = AST) 12 See_Comment [Auto mated message] The system which ge nerated this result transmit gaye reference range : <=37. The reference range was not used to interpr et this result as satish l/abnormal. [facility]2015-01-23 07:51:00 Test Item Value Reference Range Interpretation Comments eGFR (test code = eGFR) 93 [facility]2015-01-23 07:51:00 Test Item Value Reference Range Interpretation Comments Bili Total (test code = Bili Total) 0.3 0.2-1.3 [place] [id number] 07:51:00 Test Item Value Reference Range Interpretation Comments Chloride Lvl (test code = Chloride Lvl) 108 95-109 [facility]2015-01-23 07:51:00 Test Item Value Reference Range Interpretation Comments Sodium Lvl (test code = Sodium Lvl) 138 135-145 [facility]2015-01-23 07:51:00 Test Item Value Reference Range Interpretation Comments Potassium Lvl (test code = Potassium 3.9 3.5-5.1 Lvl) [facility]2015-01-23 07:51:00 Test Item Value Reference Range Interpretation Comments CO2 (test code = CO2) 22 24-32 [facility]2015-01-23 07:51:00 Test Item Value Reference Range Interpretation Comments Calcium Lvl (test code = Calcium Lvl) 8.8 8.5-10.5 [facility]2015-01-23 07:51:00 Test Item Value Reference Range Interpretation Comments Glucose Lvl (test code = Glucose Lvl) 98 70-99 [facility]2015-01-23 07:51:00 Test Item Value Reference Range Interpretation Comments Total Protein (test code = Total 7.3 6.4-8.4 Protein) [facility]2015-01-23 07:51:00 Test Item Value Reference Range Interpretation Comments BUN (test code = BUN) 12 7-22 [facility]2015-01-23 07:51:00 Test Item Value Reference Range Interpretation Comments Creatinine Lvl (test code = Creatinine 0.8 0.5-1.4 Lvl) [facility]2015-01-23 07:51:00 Test Item Value Reference Range Interpretation Comments AGAP (test code = AGAP) 11.9 10.0-20.0 [facility]2015-01-23 07:51:00 Test Item Value Reference Range Interpretation Comments B/C Ratio (test code = B/C Ratio) 15 6-25 [facility]2015-01-23 07:51:00 Test Item Value Reference Range Interpretation Comments Globulin (test code = Globulin) 3.9 2.0-4.0 [facility]2015-01-23 07:51:00 Test Item Value Reference Range Interpretation Comments A/G Ratio (test code = A/G Ratio) 0.9 0.7-1.6 [facility]TFNCLTEDJBCBC0728-[facility]-26 07:51:00 Test Item Value Reference Range Interpretation Comments hCG Tot (test code = hCG Tot) no gt [facility]RbvcfgbFMIVRLBHLO0274-24-31 07:51:00 Test Item Value Reference Range Interpretation Comments MCHC (test code = MCHC) 33.8 32.0-36.0 [facility]QavliqhMAALAZATOI2787-12-11 07:51:00 Test Item Value Reference Range Interpretation Comments MCH (test code = MCH) 30.3 pg 27.0-31.0 [facility]UsgffcdJNUQACXLEP2427-34-31 07:51:00 Test Item Value Reference Range Interpretation Comments RDW (test code = RDW) 13.0 11.5-14.5 [facility]DwmwwssPPEPSQKVWA3205-44-24 07:51:00 Test Item Value Reference Range Interpretation Comments MPV (test code = MPV) 8.4 7.4-10.4 [facility] HospitalLjechmrFTUTRDRSWT4920-89-17 07:51:00 Test Item Value Reference Range Interpretation Comments Platelet (test code = Platelet) 356 133-450 [facility] HospitalLecrsifVZLCNOVAII8452-19-65 07:51:00 Test Item Value Reference Range Interpretation Comments RBC (test code = RBC) 4.45 4.20-5.40 [facility] HospitalAdlytbiPPHRAUBEYK1579-99-29 07:51:00 Test Item Value Reference Range Interpretation Comments WBC (test code = WBC) 12.9 3.7-10.4 [facility] HospitalUzpxdraKFGUFGNVZU5283-54-70 07:51:00 Test Item Value Reference Range Interpretation Comments Hgb (test code = Hgb) 13.5 12.0-16.0 [facility] HospitalLmsvegtCRFPXPKJJV8233-20-21 07:51:00 Test Item Value Reference Range Interpretation Comments MCV (test code = MCV) 89.7 80.0-98.0 [facility] HospitalRrtoxfwVEIASCNGXR6903-92-61 07:51:00 Test Item Value Reference Range Interpretation Comments Hct (test code = Hct) 39.9 36.0-48.0 [facility] HospitalKsduhugBVPMQDTWOU7986-92-18 07:51:00 Test Item Value Reference Range Interpretation Comments Eosinophils # (test code 0.3 See_Comment [A utomated message] The = Eosinophils #) system whic h generated this result tra nsmitted reference range : <=0.5. The reference r ozzy was not used to int erpret this result as normal/abnormal . [facility] HospitalZlhwyapBJBVKXJDHP0969-41-39 07:51:00 Test Item Value Reference Range Interpretation Comments Lymphocytes # (test code = Lymphocytes 3.6 1.0-5.5 #) [facility] HospitalDnbpksfDNWFTJCDXY5438-85-05 07:51:00 Test Item Value Reference Range Interpretation Comments Monocytes # (test code 0.7 See_Comment [Aut omated message] The = Monocytes #) system which generated this result tra nsmitted reference range : <=0.8. The reference r ozzy was not used to int erpret this result as normal/abnormal . [facility] HospitalYqndbbxBWOXJBWECT2305-81-69 07:51:00 Test Item Value Reference Range Interpretation Comments Segs (test code = Segs) 63.9 45.0-75.0 [facility] HospitalOaoifdbPIQKQWFCQM8220-03-13 07:51:00 Test Item Value Reference Range Interpretation Comments Segs-Bands # (test code = Segs-Bands #) 8.2 1.5-8.1 [facility] HospitalMjgkpzkIXPQBOUSTU6409-47-10 07:51:00 Test Item Value Reference Range Interpretation Comments Basophils (test code = 0.7 See_Comment [Aut omated message] The Basophils) system which ge nerated this result tra nsmitted reference range : <=1.0. The reference r ozzy was not used to int erpret this result as normal/abnormal . [facility] HospitalWhfbzozHFKRSQXZAS7140-34-23 07:51:00 Test Item Value Reference Range Interpretation Comments Monocytes (test code = Monocytes) 5.4 2.0-12.0 [facility] HospitalKqopyvuLNXIKFHEWH9440-29-89 07:51:00 Test Item Value Reference Range Interpretation Comments Eosinophils (test code = 2.3 See_Comment [A utomated message] The Eosinophils) system which ge nerated this result tra nsmitted reference range : <=4.0. The reference r ozzy was not used to int erpret this result as normal/abnormal . [facility] HospitalPugqrgqQPCSGEWRTC3890-74-32 07:51:00 Test Item Value Reference Range Interpretation Comments Lymphocytes (test code = Lymphocytes) 27.7 20.0-40.0 [facility] HospitalNqivlroAUHHVYYHCQ1544-67-14 07:51:00 Test Item Value Reference Range Interpretation Comments Basophils # (test code 0.1 See_Comment [Aut omated message] The = Basophils #) system which generated this result tra nsmitted reference range : <=0.2. The reference r ozzy was not used to int erpret this result as normal/abnormal . [facility]2015-01-23 07:51:00 Test Item Value Reference Range Interpretation Comments UA Urobilinogen (test code = UA 1.0 0.1-1.0 Urobilinogen) [facility] AND [id number] 07:51:00 Test Item Value Reference Range Interpretation Comments UA Turbidity (test code Cloudy *ABN*(09/04/14 = UA Turbidity) 1:51 AM) [facility] AND [id number] 07:51:00 Test Item Value Reference Range Interpretation Comments UA Color (test code = Red *ABN*(09/04/14 1:51 UA Color) AM) [facility] AND [id number] 07:51:00 Test Item Value Reference Range Interpretation Comments UA Ketones (test code Negative *NA*(09/04/14 = UA Ketones) 1:51 AM) [facility] AND [id number] 07:51:00 Test Item Value Reference Range Interpretation Comments UA Glucose (test code Negative (09/04/14 1:51 = UA Glucose) AM) [facility] AND [id number] 07:51:00 Test Item Value Reference Range Interpretation Comments UA Protein (test code = Trace *ABN*(09/04/14 UA Protein) 1:51 AM) [facility] AND [id number] 07:51:00 Test Item Value Reference Range Interpretation Comments UA pH (test code = UA pH) 8.0 1 5.0-8.0 [facility] AND [id number] 07:51:00 Test Item Value Reference Range Interpretation Comments UA Spec Grav (test code = UA Spec 1.015 1 Grav) [facility] AND [id number] 07:51:00 Test Item Value Reference Range Interpretation Comments UA Bili (test code = Negative *NA*(09/04/14 UA Bili) 1:51 AM) [facility] AND [id number] 07:51:00 Test Item Value Reference Range Interpretation Comments UA Blood (test code = Large *ABN*(09/04/14 UA Blood) 1:51 AM) [facility] AND [id number] 07:51:00 Test Item Value Reference Range Interpretation Comments UA Leuk Est (test Negative (09/04/14 1:51 code = UA Leuk Est) AM) [facility] AND [id number] 07:51:00 Test Item Value Reference Range Interpretation Comments UA Nitrite (test code Negative (09/04/14 1:51 = UA Nitrite) AM) [facility] AND [id number] 07:51:00 Test Item Value Reference Range Interpretation Comments UA Amorph Joselin (test code = UA Few /HPF Amorph Joselin) [facility] AND [id number] 07:51:00 Test Item Value Reference Range Interpretation Comments UA RBC (test code 51-100 /HPF See_Comment [Automate d message] The = UA RBC) system which ge nerated this result tra nsmitted reference range : <=2. The reference r ozzy was not used to int erpret this result as normal/abnormal . [facility] AND [id number] 07:51:00 Test Item Value Reference Range Interpretation Comments UA WBC (test code = UA WBC) 6-10 /HPF [facility] [id number] 07:51:00 Test Item Value Reference Range Interpretation Comments UA Bacteria (test code = UA Few /HPF Bacteria) [facility] [id number] 07:51:00 Test Item Value Reference Range Interpretation Comments UA Sq Epi (test code = UA Sq Occasional /LPF Epi) [facility] [employer] [id number] 07:51:00 Test Item Value Reference Range Interpretation Comments ABO/Rh (test code = ABO/Rh) A POS [facility] [employer] [id number] 07:51:00 Test Item Value Reference Range Interpretation Comments Antibody Scrn (test Negative (09/04/14 1:51 code = Antibody Scrn) AM) [facility] [employer] [id number] 07:51:00 Test Item Value Reference Range Interpretation Comments Albumin Lvl (test code = Albumin Lvl) 3.4 3.5-5.0 [facility] [employer] [id number] 07:51:00 Test Item Value Reference Range Interpretation Comments Alk Phos (test code = Alk Phos) 64 39-136 [facility] [employer] [id number] 07:51:00 Test Item Value Reference Range Interpretation Comments ALT (test code = ALT) 18 See_Comment [Auto mated message] The system which ge nerated this result transmit gaye reference range : <=65. The reference range was not used to interpr et this result as satish l/abnormal. [facility] [employer] [id number] 07:51:00 Test Item Value Reference Range Interpretation Comments AST (test code = AST) 12 See_Comment [Auto mated message] The system which ge nerated this result transmit gaye reference range : <=37. The reference range was not used to interpr et this result as satish l/abnormal. [facility] [employer] [id number] 07:51:00 Test Item Value Reference Range Interpretation Comments eGFR (test code = eGFR) 93 [facility]2015-01-23 07:51:00 Test Item Value Reference Range Interpretation Comments Bili Total (test code = Bili Total) 0.3 0.2-1.3 [facility]2015-01-23 07:51:00 Test Item Value Reference Range Interpretation Comments Chloride Lvl (test code = Chloride Lvl) 108 95-109 [facility]2015-01-23 07:51:00 Test Item Value Reference Range Interpretation Comments Sodium Lvl (test code = Sodium Lvl) 138 135-145 [facility]2015-01-23 07:51:00 Test Item Value Reference Range Interpretation Comments Potassium Lvl (test code = Potassium 3.9 3.5-5.1 Lvl) [facility]2015-01-23 07:51:00 Test Item Value Reference Range Interpretation Comments CO2 (test code = CO2) 22 24-32 [facility]2015-01-23 07:51:00 Test Item Value Reference Range Interpretation Comments Calcium Lvl (test code = Calcium Lvl) 8.8 8.5-10.5 [facility]2015-01-23 07:51:00 Test Item Value Reference Range Interpretation Comments Glucose Lvl (test code = Glucose Lvl) 98 70-99 [facility]2015-01-23 07:51:00 Test Item Value Reference Range Interpretation Comments Total Protein (test code = Total 7.3 6.4-8.4 Protein) [facility]2015-01-23 07:51:00 Test Item Value Reference Range Interpretation Comments BUN (test code = BUN) 12 -22 [facility]2015-01-23 07:51:00 Test Item Value Reference Range Interpretation Comments Creatinine Lvl (test code = Creatinine 0.8 0.5-1.4 Lvl) [facility]2015-01-23 07:51:00 Test Item Value Reference Range Interpretation Comments AGAP (test code = AGAP) 11.9 10.0-20.0 [facility]2015-01-23 07:51:00 Test Item Value Reference Range Interpretation Comments B/C Ratio (test code = B/C Ratio) 15 6-25 [facility]2015-01-23 07:51:00 Test Item Value Reference Range Interpretation Comments Globulin (test code = Globulin) 3.9 2.0-4.0 [facility] [id number] 07:51:00 Test Item Value Reference Range Interpretation Comments A/G Ratio (test code = A/G Ratio) 0.9 0.7-1.6 [facility]YfjleudXMQVVHVTJXHIN5566-44-78 07:51:00 Test Item Value Reference Range Interpretation Comments hCG Tot (test code = hCG Tot) no gt [facility] GladwinUylxwsqIBBTBJURMY9335-06-[facility] 07:51:00 Test Item Value Reference Range Interpretation Comments MCHC (test code = MCHC) 33.8 32.0-36.0 [facility] GladwinVssnljqLSIKFXMXFU3348-30-33 07:51:00 Test Item Value Reference Range Interpretation Comments MCH (test code = MCH) 30.3 pg 27.0-31.0 [id number] 07:51:00 Test Item Value Reference Range Interpretation Comments RDW (test code = RDW) 13.0 11.5-14.5 [facility]UtemdzlTRMRNLJYXM4227-03-26 07:51:00 Test Item Value Reference Range Interpretation Comments MPV (test code = MPV) 8.4 7.4-10.4 [facility] HospitalCuyvdmrBWJKRCSPDS2542-62-33 07:51:00 Test Item Value Reference Range Interpretation Comments Platelet (test code = Platelet) 356 133-450 [facility] HospitalQujhouyDKOLZFIRAV5587-28-16 07:51:00 Test Item Value Reference Range Interpretation Comments RBC (test code = RBC) 4.45 4.20-5.40 [facility]fieldBerpakbTMNSRUDKIF6497-47-18 07:51:00 Test Item Value Reference Range Interpretation Comments WBC (test code = WBC) 12.9 3.7-10.4 [facility] GladwinBcrvvvyQFLWZRYOPK4654-26-29 07:51:00 Test Item Value Reference Range Interpretation Comments Hgb (test code = Hgb) 13.5 12.0-16.0 [facility]DtybdjkMNUZFKMBQD0482-60-45 07:51:00 Test Item Value Reference Range Interpretation Comments MCV (test code = MCV) 89.7 80.0-98.0 [facility]HdjnwauVABNDBVQJU8671-19-10 07:51:00 Test Item Value Reference Range Interpretation Comments Hct (test code = Hct) 39.9 36.0-48.0 [facility] HospitalBcdqahaEYHHXOKIYC7717-96-75 07:51:00 Test Item Value Reference Range Interpretation Comments Eosinophils # (test code 0.3 See_Comment [A utomated message] The = Eosinophils #) system whic h generated this result tra nsmitted reference range : <=0.5. The reference r ozzy was not used to int erpret this result as normal/abnormal . [facility]GiksvssHBBDHBMBIJ5602-23-61 07:51:00 Test Item Value Reference Range Interpretation Comments Lymphocytes # (test code = Lymphocytes 3.6 1.0-5.5 #) [facility]YlsewtvGXPICTQFYW2093-95-65 07:51:00 Test Item Value Reference Range Interpretation Comments Monocytes # (test code 0.7 See_Comment [Aut omated message] The = Monocytes #) system which generated this result tra nsmitted reference range : <=0.8. The reference r ozzy was not used to int erpret this result as normal/abnormal . [facility]PO[facility]UEQXKX8112[facility] 07:51:00 Test Item Value Reference Range Interpretation Comments Segs (test code = Segs) 63.9 45.0-75.0 [facility]IdfcqdwIRKLBZDBTR0609-13-81 07:51:00 Test Item Value Reference Range Interpretation Comments Segs-Bands # (test code = Segs-Bands #) 8.2 1.5-8.1 [facility] HospitalXrpxbfyRVGFGIGICH4660-74-11 07:51:00 Test Item Value Reference Range Interpretation Comments Basophils (test code = 0.7 See_Comment [Aut omated message] The Basophils) system which ge nerated this result tra nsmitted reference range : <=1.0. The reference r ozzy was not used to int erpret this result as normal/abnormal . [facility]NipyrlgZVVLTRGMDB5709-09-97 07:51:00 Test Item Value Reference Range Interpretation Comments Monocytes (test code = Monocytes) 5.4 2.0-12.0 [facility] HospitalSzltkfsSPZOVFISYR6158-67-89 07:51:00 Test Item Value Reference Range Interpretation Comments Eosinophils (test code = 2.3 See_Comment [A utomated message] The Eosinophils) system which ge nerated this result tra nsmitted reference range : <=4.0. The reference r ozzy was not used to int erpret this result as normal/abnormal . [facility]JabfapqHUBPMXCGOA7705-65-10 07:51:00 Test Item Value Reference Range Interpretation Comments Lymphocytes (test code = Lymphocytes) 27.7 20.0-40.0 [facility] HospitalFbuuoxnYAPTSXNCHQ3761-21-94 07:51:00 Test Item Value Reference Range Interpretation Comments Basophils # (test code 0.1 See_Comment [Aut omated message] The = Basophils #) system which generated this result tra nsmitted reference range : <=0.2. The reference r ozzy was not used to int erpret this result as normal/abnormal . [facility] AND [id number] 07:51:00 Test Item Value Reference Range Interpretation Comments UA Urobilinogen (test code = UA 1.0 0.1-1.0 Urobilinogen) [facility] AND [id number] 07:51:00 Test Item Value Reference Range Interpretation Comments UA Turbidity (test code Cloudy *ABN*(09/04/14 = UA Turbidity) 1:51 AM) [facility] AND [id number] 07:51:00 Test Item Value Reference Range Interpretation Comments UA Color (test code = Red *ABN*(09/04/14 1:51 UA Color) AM) [facility] AND [id number] 07:51:00 Test Item Value Reference Range Interpretation Comments UA Ketones (test code Negative *NA*(09/04/14 = UA Ketones) 1:51 AM) [facility] AND [id number] 07:51:00 Test Item Value Reference Range Interpretation Comments UA Glucose (test code Negative (09/04/14 1:51 = UA Glucose) AM) [facility] AND [id number] 07:51:00 Test Item Value Reference Range Interpretation Comments UA Protein (test code = Trace *ABN*(09/04/14 UA Protein) 1:51 AM) [facility] AND [id number] 07:51:00 Test Item Value Reference Range Interpretation Comments UA pH (test code = UA pH) 8.0 1 5.0-8.0 [facility] AND [id number] 07:51:00 Test Item Value Reference Range Interpretation Comments UA Spec Grav (test code = UA Spec 1.015 1 Grav) [facility] AND [id number] 07:51:00 Test Item Value Reference Range Interpretation Comments UA Bili (test code = Negative *NA*(09/04/14 UA Bili) 1:51 AM) [facility] AND [id number] 07:51:00 Test Item Value Reference Range Interpretation Comments UA Blood (test code = Large *ABN*(09/04/14 UA Blood) 1:51 AM) [facility] AND [id number] 07:51:00 Test Item Value Reference Range Interpretation Comments UA Leuk Est (test Negative (09/04/14 1:51 code = UA Leuk Est) AM) [facility] AND [id number] 07:51:00 Test Item Value Reference Range Interpretation Comments UA Nitrite (test code Negative (09/04/14 1:51 = UA Nitrite) AM) [facility] AND [id number] 07:51:00 Test Item Value Reference Range Interpretation Comments UA Amorph Joselin (test code = UA Few /HPF Amorph Joselin) [facility] AND [id number] 07:51:00 Test Item Value Reference Range Interpretation Comments UA RBC (test code 51-100 /HPF See_Comment [Automate d message] The = UA RBC) system which ge nerated this result tra nsmitted reference range : <=2. The reference r ozzy was not used to int erpret this result as normal/abnormal . [facility] AND [id number] 07:51:00 Test Item Value Reference Range Interpretation Comments UA WBC (test code = UA WBC) 6-10 /HPF [facility] AND [id number] 07:51:00 Test Item Value Reference Range Interpretation Comments UA Bacteria (test code = UA Few /HPF Bacteria) [facility] AND [id number] 07:51:00 Test Item Value Reference Range Interpretation Comments UA Sq Epi (test code = UA Sq Occasional /LPF Epi) [facility] [employer] [facility] [id number] 07:51:00 Test Item Value Reference Range Interpretation Comments ABO/Rh (test code = ABO/Rh) A POS [facility] [employer] B[facility] [id number] 07:51:00 Test Item Value Reference Range Interpretation Comments Antibody Scrn (test Negative (09/04/14 1:51 code = Antibody Scrn) AM) [facility]2015-01-23 07:51:00 Test Item Value Reference Range Interpretation Comments Albumin Lvl (test code = Albumin Lvl) 3.4 3.5-5.0 [facility]2015-01-23 07:51:00 Test Item Value Reference Range Interpretation Comments Alk Phos (test code = Alk Phos) 64 39-136 [facility]2015-01-23 07:51:00 Test Item Value Reference Range Interpretation Comments ALT (test code = ALT) 18 See_Comment [Auto mated message] The system which ge nerated this result transmit gaye reference range : <=65. The reference range was not used to interpr et this result as satish l/abnormal. [facility]2015-01-23 07:51:00 Test Item Value Reference Range Interpretation Comments AST (test code = AST) 12 See_Comment [Auto mated message] The system which ge nerated this result transmit gaye reference range : <=37. The reference range was not used to interpr et this result as satish l/abnormal. [facility]2015-01-23 07:51:00 Test Item Value Reference Range Interpretation Comments eGFR (test code = eGFR) 93 [facility]2015-01-23 07:51:00 Test Item Value Reference Range Interpretation Comments Bili Total (test code = Bili Total) 0.3 0.2-1.3 [facility]2015-01-23 07:51:00 Test Item Value Reference Range Interpretation Comments Chloride Lvl (test code = Chloride Lvl) 108 95-109 [facility]2015-01-23 07:51:00 Test Item Value Reference Range Interpretation Comments Sodium Lvl (test code = Sodium Lvl) 138 135-145 [facility]2015-01-23 07:51:00 Test Item Value Reference Range Interpretation Comments Potassium Lvl (test code = Potassium 3.9 3.5-5.1 Lvl) [facility]2015-01-23 07:51:00 Test Item Value Reference Range Interpretation Comments CO2 (test code = CO2) 22 24-32 [facility]2015-01-23 07:51:00 Test Item Value Reference Range Interpretation Comments Calcium Lvl (test code = Calcium Lvl) 8.8 8.5-10.5 [facility]2015-01-23 07:51:00 Test Item Value Reference Range Interpretation Comments Glucose Lvl (test code = Glucose Lvl) 98 70-99 [facility]2015-01-23 07:51:00 Test Item Value Reference Range Interpretation Comments Total Protein (test code = Total 7.3 6.4-8.4 Protein) [facility]2015-01-23 07:51:00 Test Item Value Reference Range Interpretation Comments BUN (test code = BUN) 12 7-22 [facility]2015-01-23 07:51:00 Test Item Value Reference Range Interpretation Comments Creatinine Lvl (test code = Creatinine 0.8 0.5-1.4 Lvl) [facility]2015-01-23 07:51:00 Test Item Value Reference Range Interpretation Comments AGAP (test code = AGAP) 11.9 10.0-20.0 [facility]2015-01-23 07:51:00 Test Item Value Reference Range Interpretation Comments B/C Ratio (test code = B/C Ratio) 15 6-25 [facility]2015-01-23 07:51:00 Test Item Value Reference Range Interpretation Comments Globulin (test code = Globulin) 3.9 2.0-4.0 [facility]2015-01-23 07:51:00 Test Item Value Reference Range Interpretation Comments A/G Ratio (test code = A/G Ratio) 0.9 0.7-1.6 [facility]jzlpitHNSGLDYBHVNSV5126-09-19 07:51:00 Test Item Value Reference Range Interpretation Comments hCG Tot (test code = hCG Tot) no gt [facility] HospitalVixyxscSTHQDMBYLN5863-47-23 07:51:00 Test Item Value Reference Range Interpretation Comments MCHC (test code = MCHC) 33.8 32.0-36.0 [facility] HospitalLwirhtxQZYTJHHMUL0711-46-51 07:51:00 Test Item Value Reference Range Interpretation Comments MCH (test code = MCH) 30.3 pg 27.0-31.0 [facility] HospitalBfhtqbsKSIFLMPUQL8417-74-87 07:51:00 Test Item Value Reference Range Interpretation Comments RDW (test code = RDW) 13.0 11.5-14.5 [facility] HospitalNdrwpgcGXASTHUYAK2754-34-57 07:51:00 Test Item Value Reference Range Interpretation Comments MPV (test code = MPV) 8.4 7.4-10.4 [facility] HospitalVuudorkPNILRXNXBX8578-13-27 07:51:00 Test Item Value Reference Range Interpretation Comments Platelet (test code = Platelet) 356 133-450 [facility] HospitalFraiorxVKLGJEAOSJ0987-65-97 07:51:00 Test Item Value Reference Range Interpretation Comments RBC (test code = RBC) 4.45 4.20-5.40 [facility] HospitalNyvresuZYEVWOYLGB5596-61-31 07:51:00 Test Item Value Reference Range Interpretation Comments WBC (test code = WBC) 12.9 3.7-10.4 [facility] HospitalWnebdyyACCBLLFPET7945-80-59 07:51:00 Test Item Value Reference Range Interpretation Comments Hgb (test code = Hgb) 13.5 12.0-16.0 [facility] HospitalEtpvenwEYAHCGOQCR7503-72-04 07:51:00 Test Item Value Reference Range Interpretation Comments MCV (test code = MCV) 89.7 80.0-98.0 [facility] HospitalIhjaozeYNUPLFGJJV0788-49-94 07:51:00 Test Item Value Reference Range Interpretation Comments Hct (test code = Hct) 39.9 36.0-48.0 [facility] HospitalMdyvlswQTOCDGEVUH1623-76-04 07:51:00 Test Item Value Reference Range Interpretation Comments Eosinophils # (test code 0.3 See_Comment [A utomated message] The = Eosinophils #) system whic h generated this result tra nsmitted reference range : <=0.5. The reference r ozzy was not used to int erpret this result as normal/abnormal . [facility] HospitalOohojecPGKUQLLYLG3776-95-68 07:51:00 Test Item Value Reference Range Interpretation Comments Lymphocytes # (test code = Lymphocytes 3.6 1.0-5.5 #) [facility] HospitalEgyxjxpMNXRKPUTAA4066-69-07 07:51:00 Test Item Value Reference Range Interpretation Comments Monocytes # (test code 0.7 See_Comment [Aut omated message] The = Monocytes #) system which generated this result tra nsmitted reference range : <=0.8. The reference r ozzy was not used to int erpret this result as normal/abnormal . [id number] 07:51:00 Test Item Value Reference Range Interpretation Comments Segs (test code = Segs) 63.9 45.0-75.0 [facility] HospitalHybdpbfVBSJDSYABH6444-48-33 07:51:00 Test Item Value Reference Range Interpretation Comments Segs-Bands # (test code = Segs-Bands #) 8.2 1.5-8.1 [facility] HospitalOujlawoUEWWYGJUYT4732-29-45 07:51:00 Test Item Value Reference Range Interpretation Comments Basophils (test code = 0.7 See_Comment [Aut omated message] The Basophils) system which ge nerated this result tra nsmitted reference range : <=1.0. The reference r ozzy was not used to int erpret this result as normal/abnormal . [facility] HospitalGpwuadoFDCFYXBDQP8164-90-68 07:51:00 Test Item Value Reference Range Interpretation Comments Monocytes (test code = Monocytes) 5.4 2.0-12.0 [facility] HospitalJxsvvkyZYUQAXXUJH9299-48-19 07:51:00 Test Item Value Reference Range Interpretation Comments Eosinophils (test code = 2.3 See_Comment [A utomated message] The Eosinophils) system which ge nerated this result tra nsmitted reference range : <=4.0. The reference r ozzy was not used to int erpret this result as normal/abnormal . [facility] HospitalLkrenfeAKEEWKTVJQ9734-06-17 07:51:00 Test Item Value Reference Range Interpretation Comments Lymphocytes (test code = Lymphocytes) 27.7 20.0-40.0 [facility] HospitalGyhflolXPOXXXITVR8465-89-16 07:51:00 Test Item Value Reference Range Interpretation Comments Basophils # (test code 0.1 See_Comment [Aut omated message] The = Basophils #) system which generated this result tra nsmitted reference range : <=0.2. The reference r ozzy was not used to int erpret this result as normal/abnormal . [facility]2015-01-23 07:51:00 Test Item Value Reference Range Interpretation Comments UA Urobilinogen (test code = UA 1.0 0.1-1.0 Urobilinogen) [facility]2015-01-23 07:51:00 Test Item Value Reference Range Interpretation Comments UA Turbidity (test code Cloudy *ABN*(09/04/14 = UA Turbidity) 1:51 AM) [facility] AND [id number] 07:51:00 Test Item Value Reference Range Interpretation Comments UA Color (test code = Red *ABN*(09/04/14 1:51 UA Color) AM) [facility] AND [id number] 07:51:00 Test Item Value Reference Range Interpretation Comments UA Ketones (test code Negative *NA*(09/04/14 = UA Ketones) 1:51 AM) [facility] AND [id number] 07:51:00 Test Item Value Reference Range Interpretation Comments UA Glucose (test code Negative (09/04/14 1:51 = UA Glucose) AM) [facility] AND [id number] 07:51:00 Test Item Value Reference Range Interpretation Comments UA Protein (test code = Trace *ABN*(09/04/14 UA Protein) 1:51 AM) [facility] AND [id number] 07:51:00 Test Item Value Reference Range Interpretation Comments UA pH (test code = UA pH) 8.0 1 5.0-8.0 [facility] [id number] 07:51:00 Test Item Value Reference Range Interpretation Comments UA Spec Grav (test code = UA Spec 1.015 1 Grav) [facility] AND [id number] 07:51:00 Test Item Value Reference Range Interpretation Comments UA Bili (test code = Negative *NA*(09/04/14 UA Bili) 1:51 AM) [facility] AND [id number] 07:51:00 Test Item Value Reference Range Interpretation Comments UA Blood (test code = Large *ABN*(09/04/14 UA Blood) 1:51 AM) [facility] AND [id number] 07:51:00 Test Item Value Reference Range Interpretation Comments UA Leuk Est (test Negative (09/04/14 1:51 code = UA Leuk Est) AM) [facility] AND [id number] 07:51:00 Test Item Value Reference Range Interpretation Comments UA Nitrite (test code Negative (09/04/14 1:51 = UA Nitrite) AM) [facility] AND [id number] 07:51:00 Test Item Value Reference Range Interpretation Comments UA Amorph Joselin (test code = UA Few /HPF Amorph Joselin) [facility] AND [id number] 07:51:00 Test Item Value Reference Range Interpretation Comments UA RBC (test code 51-100 /HPF See_Comment [Automate d message] The = UA RBC) system which ge nerated this result tra nsmitted reference range : <=2. The reference r ozzy was not used to int erpret this result as normal/abnormal . [facility] AND [id number] 07:51:00 Test Item Value Reference Range Interpretation Comments UA WBC (test code = UA WBC) 6-10 /HPF [facility] AND [id number] 07:51:00 Test Item Value Reference Range Interpretation Comments UA Bacteria (test code = UA Few /HPF Bacteria) [facility] AND [id number] 07:51:00 Test Item Value Reference Range Interpretation Comments UA Sq Epi (test code = UA Sq Occasional /LPF Epi) [facility] [employer] [id number] 07:51:00 Test Item Value Reference Range Interpretation Comments ABO/Rh (test code = ABO/Rh) A POS [facility] [employer] BANK [id number] 07:51:00 Test Item Value Reference Range Interpretation Comments Antibody Scrn (test Negative (09/04/14 1:51 code = Antibody Scrn) AM) [facility] [employer] [id number] 07:51:00 Test Item Value Reference Range Interpretation Comments Albumin Lvl (test code = Albumin Lvl) 3.4 3.5-5.0 [facility] [employer] [id number] 07:51:00 Test Item Value Reference Range Interpretation Comments Alk Phos (test code = Alk Phos) 64 39-136 [facility] [employer] [id number] 07:51:00 Test Item Value Reference Range Interpretation Comments ALT (test code = ALT) 18 See_Comment [Auto mated message] The system which ge nerated this result transmit gaye reference range : <=65. The reference range was not used to interpr et this result as satish l/abnormal. [facility] [employer] [id number] 07:51:00 Test Item Value Reference Range Interpretation Comments AST (test code = AST) 12 See_Comment [Auto mated message] The system which ge nerated this result transmit gaye reference range : <=37. The reference range was not used to interpr et this result as satish l/abnormal. [facility]2015-01-23 07:51:00 Test Item Value Reference Range Interpretation Comments eGFR (test code = eGFR) 93 [facility]2015-01-23 07:51:00 Test Item Value Reference Range Interpretation Comments Bili Total (test code = Bili Total) 0.3 0.2-1.3 [facility]2015-01-23 07:51:00 Test Item Value Reference Range Interpretation Comments Chloride Lvl (test code = Chloride Lvl) 108 95-109 [facility]2015-01-23 07:51:00 Test Item Value Reference Range Interpretation Comments Sodium Lvl (test code = Sodium Lvl) 138 135-145 [facility]2015-01-23 07:51:00 Test Item Value Reference Range Interpretation Comments Potassium Lvl (test code = Potassium 3.9 3.5-5.1 Lvl) [facility]2015-01-23 07:51:00 Test Item Value Reference Range Interpretation Comments CO2 (test code = CO2) 22 24-32 [facility]2015-01-23 07:51:00 Test Item Value Reference Range Interpretation Comments Calcium Lvl (test code = Calcium Lvl) 8.8 8.5-10.5 [facility]2015-01-23 07:51:00 Test Item Value Reference Range Interpretation Comments Glucose Lvl (test code = Glucose Lvl) 98 70-99 [facility]2015-01-23 07:51:00 Test Item Value Reference Range Interpretation Comments Total Protein (test code = Total 7.3 6.4-8.4 Protein) [facility]2015-01-23 07:51:00 Test Item Value Reference Range Interpretation Comments BUN (test code = BUN) 12 7-22 [facility]2015-01-23 07:51:00 Test Item Value Reference Range Interpretation Comments Creatinine Lvl (test code = Creatinine 0.8 0.5-1.4 Lvl) [facility]2015-01-23 07:51:00 Test Item Value Reference Range Interpretation Comments AGAP (test code = AGAP) 11.9 10.0-20.0 [facility]2015-01-23 07:51:00 Test Item Value Reference Range Interpretation Comments B/C Ratio (test code = B/C Ratio) 15 6-25 [facility] [id number] 07:51:00 Test Item Value Reference Range Interpretation Comments Globulin (test code = Globulin) 3.9 2.0-4.0 [facility]2015-01-23 07:51:00 Test Item Value Reference Range Interpretation Comments A/G Ratio (test code = A/G Ratio) 0.9 0.7-1.6 [id number] 07:51:00 Test Item Value Reference Range Interpretation Comments hCG Tot (test code = hCG Tot) no gt [facility]ExoyxwpKPWJVLIDMU5648-33-97 07:51:00 Test Item Value Reference Range Interpretation Comments MCHC (test code = MCHC) 33.8 32.0-36.0 [facility]VvccjllBENKNMGQCY4682-57-89 07:51:00 Test Item Value Reference Range Interpretation Comments MCH (test code = MCH) 30.3 pg 27.0-31.0 [facility]JyiknhuUSVKQLQBBP0605-26-55 07:51:00 Test Item Value Reference Range Interpretation Comments RDW (test code = RDW) 13.0 11.5-14.5 [facility] HospitalAlzbfbnRRHTHJOVHC6538-32-49 07:51:00 Test Item Value Reference Range Interpretation Comments MPV (test code = MPV) 8.4 7.4-10.4 [facility] HospitalYetdpmxRJJYBQBLQZ9734-89-31 07:51:00 Test Item Value Reference Range Interpretation Comments Platelet (test code = Platelet) 356 133-450 [facility] HospitalLtndjvfRYZNBMSSUP5597-13-68 07:51:00 Test Item Value Reference Range Interpretation Comments RBC (test code = RBC) 4.45 4.20-5.40 [facility] HospitalJnurmobHGLSFZACGX8899-98-82 07:51:00 Test Item Value Reference Range Interpretation Comments WBC (test code = WBC) 12.9 3.7-10.4 [facility] HospitalWuffluvTXZJQAIGHH2542-65-87 07:51:00 Test Item Value Reference Range Interpretation Comments Hgb (test code = Hgb) 13.5 12.0-16.0 [facility] HospitalRsuhxqbWCQCDPOIAV9297-78-85 07:51:00 Test Item Value Reference Range Interpretation Comments MCV (test code = MCV) 89.7 80.0-98.0 [facility]KepkghjHELHOBOWPY4259-63-29 07:51:00 Test Item Value Reference Range Interpretation Comments Hct (test code = Hct) 39.9 36.0-48.0 [facility]JvssjdzWLRXKGGXBW5209-45-53 07:51:00 Test Item Value Reference Range Interpretation Comments Eosinophils # (test code 0.3 See_Comment [A utomated message] The = Eosinophils #) system whic h generated this result tra nsmitted reference range : <=0.5. The reference r ozzy was not used to int erpret this result as normal/abnormal . [facility] HospitalRkholpeCJZSWUVBHQ0566-15-00 07:51:00 Test Item Value Reference Range Interpretation Comments Lymphocytes # (test code = Lymphocytes 3.6 1.0-5.5 #) [facility] HospitalWwnitiuZRDPSHCFGL1310-82-12 07:51:00 Test Item Value Reference Range Interpretation Comments Monocytes # (test code 0.7 See_Comment [Aut omated message] The = Monocytes #) system which generated this result tra nsmitted reference range : <=0.8. The reference r ozzy was not used to int erpret this result as normal/abnormal . [facility] HospitalWidblwbRJOQRHTKLX1241-66-77 07:51:00 Test Item Value Reference Range Interpretation Comments Segs (test code = Segs) 63.9 45.0-75.0 [facility] HospitalLfsrqieSAOKVZPZXD1092-51-34 07:51:00 Test Item Value Reference Range Interpretation Comments Segs-Bands # (test code = Segs-Bands #) 8.2 1.5-8.1 [facility] HospitalBdmiejzZIAUWZQGDL0827-21-23 07:51:00 Test Item Value Reference Range Interpretation Comments Basophils (test code = 0.7 See_Comment [Aut omated message] The Basophils) system which ge nerated this result tra nsmitted reference range : <=1.0. The reference r ozzy was not used to int erpret this result as normal/abnormal . [facility] HospitalKesslsaMZFRWKYIUB5716-90-60 07:51:00 Test Item Value Reference Range Interpretation Comments Monocytes (test code = Monocytes) 5.4 2.0-12.0 [facility] HospitalSosqggoNBGBAUQODA1757-10-67 07:51:00 Test Item Value Reference Range Interpretation Comments Eosinophils (test code = 2.3 See_Comment [A utomated message] The Eosinophils) system which ge nerated this result tra nsmitted reference range : <=4.0. The reference r ozzy was not used to int erpret this result as normal/abnormal . [id number] 07:51:00 Test Item Value Reference Range Interpretation Comments Lymphocytes (test code = Lymphocytes) 27.7 20.0-40.0 [id number] 07:51:00 Test Item Value Reference Range Interpretation Comments Basophils # (test code 0.1 See_Comment [Aut omated message] The = Basophils #) system which generated this result tra nsmitted reference range : <=0.2. The reference r ozzy was not used to int erpret this result as normal/abnormal . [facility] AND [id number] 07:51:00 Test Item Value Reference Range Interpretation Comments UA Urobilinogen (test code = UA 1.0 0.1-1.0 Urobilinogen) [facility] AND [id number] 07:51:00 Test Item Value Reference Range Interpretation Comments UA Turbidity (test code Cloudy *ABN*(09/04/14 = UA Turbidity) 1:51 AM) [facility] AND [id number] 07:51:00 Test Item Value Reference Range Interpretation Comments UA Color (test code = Red *ABN*(09/04/14 1:51 UA Color) AM) [facility] AND [id number] 07:51:00 Test Item Value Reference Range Interpretation Comments UA Ketones (test code Negative *NA*(09/04/14 = UA Ketones) 1:51 AM) [facility] AND [id number] 07:51:00 Test Item Value Reference Range Interpretation Comments UA Glucose (test code Negative (09/04/14 1:51 = UA Glucose) AM) [facility] AND [id number] 07:51:00 Test Item Value Reference Range Interpretation Comments UA Protein (test code = Trace *ABN*(09/04/14 UA Protein) 1:51 AM) [facility] AND [id number] 07:51:00 Test Item Value Reference Range Interpretation Comments UA pH (test code = UA pH) 8.0 1 5.0-8.0 [facility] AND [id number] 07:51:00 Test Item Value Reference Range Interpretation Comments UA Spec Grav (test code = UA Spec 1.015 1 Grav) [facility] AND [id number] 07:51:00 Test Item Value Reference Range Interpretation Comments UA Bili (test code = Negative *NA*(09/04/14 UA Bili) 1:51 AM) [facility] AND [id number] 07:51:00 Test Item Value Reference Range Interpretation Comments UA Blood (test code = Large *ABN*(09/04/14 UA Blood) 1:51 AM) [facility] AND [id number] 07:51:00 Test Item Value Reference Range Interpretation Comments UA Leuk Est (test Negative (09/04/14 1:51 code = UA Leuk Est) AM) [facility] AND [id number] 07:51:00 Test Item Value Reference Range Interpretation Comments UA Nitrite (test code Negative (09/04/14 1:51 = UA Nitrite) AM) [facility] AND [id number] 07:51:00 Test Item Value Reference Range Interpretation Comments UA Amorph Joselin (test code = UA Few /HPF Amorph Joselin) [facility] AND [id number] 07:51:00 Test Item Value Reference Range Interpretation Comments UA RBC (test code 51-100 /HPF See_Comment [Automate d message] The = UA RBC) system which ge nerated this result tra nsmitted reference range : <=2. The reference r ozzy was not used to int erpret this result as normal/abnormal . [facility] AND [id number] 07:51:00 Test Item Value Reference Range Interpretation Comments UA WBC (test code = UA WBC) 6-10 /HPF [facility] AND [id number] 07:51:00 Test Item Value Reference Range Interpretation Comments UA Bacteria (test code = UA Few /HPF Bacteria) [facility] AND [id number] 07:51:00 Test Item Value Reference Range Interpretation Comments UA Sq Epi (test code = UA Sq Occasional /LPF Epi) [facility] [id number] 07:51:00 Test Item Value Reference Range Interpretation Comments ABO/Rh (test code = ABO/Rh) [facility] [id number] 07:51:00 Test Item Value Reference Range Interpretation Comments Antibody Scrn (test Negative (09/04/14 1:51 code = Antibody Scrn) AM) [facility]2015-01-23 07:51:00 Test Item Value Reference Range Interpretation Comments Albumin Lvl (test code = Albumin Lvl) 3.4 3.5-5.0 [facility]2015-01-23 07:51:00 Test Item Value Reference Range Interpretation Comments Alk Phos (test code = Alk Phos) 64 39-136 [facility]2015-01-23 07:51:00 Test Item Value Reference Range Interpretation Comments ALT (test code = ALT) 18 See_Comment [Auto mated message] The system which ge nerated this result transmit gaye reference range : <=65. The reference range was not used to interpr et this result as satish l/abnormal. [facility]2015-01-23 07:51:00 Test Item Value Reference Range Interpretation Comments AST (test code = AST) 12 See_Comment [Auto mated message] The system which ge nerated this result transmit gaye reference range : <=37. The reference range was not used to interpr et this result as satish l/abnormal. [facility]2015-01-23 07:51:00 Test Item Value Reference Range Interpretation Comments eGFR (test code = eGFR) 93 [facility]2015-01-23 07:51:00 Test Item Value Reference Range Interpretation Comments Bili Total (test code = Bili Total) 0.3 0.2-1.3 [facility]2015-01-23 07:51:00 Test Item Value Reference Range Interpretation Comments Chloride Lvl (test code = Chloride Lvl) 108 95-109 [facility]2015-01-23 07:51:00 Test Item Value Reference Range Interpretation Comments Sodium Lvl (test code = Sodium Lvl) 138 135-145 [facility]2015-01-23 07:51:00 Test Item Value Reference Range Interpretation Comments Potassium Lvl (test code = Potassium 3.9 3.5-5.1 Lvl) [facility]2015-01-23 07:51:00 Test Item Value Reference Range Interpretation Comments CO2 (test code = CO2) 22 24-32 [facility]2015-01-23 07:51:00 Test Item Value Reference Range Interpretation Comments Calcium Lvl (test code = Calcium Lvl) 8.8 8.5-10.5 [facility]2015-01-23 07:51:00 Test Item Value Reference Range Interpretation Comments Glucose Lvl (test code = Glucose Lvl) 98 70-99 [facility]2015-01-23 07:51:00 Test Item Value Reference Range Interpretation Comments Total Protein (test code = Total 7.3 6.4-8.4 Protein) [facility]2015-01-23 07:51:00 Test Item Value Reference Range Interpretation Comments BUN (test code = BUN) 12 - [facility]2015-01-23 07:51:00 Test Item Value Reference Range Interpretation Comments Creatinine Lvl (test code = Creatinine 0.8 0.5-1.4 Lvl) [facility]2015-01-23 07:51:00 Test Item Value Reference Range Interpretation Comments AGAP (test code = AGAP) 11.9 10.0-20.0 [facility]2015-01-23 07:51:00 Test Item Value Reference Range Interpretation Comments B/C Ratio (test code = B/C Ratio) 15 6-25 [facility]2015-01-23 07:51:00 Test Item Value Reference Range Interpretation Comments Globulin (test code = Globulin) 3.9 2.0-4.0 [facility]2015-01-23 07:51:00 Test Item Value Reference Range Interpretation Comments A/G Ratio (test code = A/G Ratio) 0.9 0.7-1.6 [id number] 07:51:00 Test Item Value Reference Range Interpretation Comments hCG Tot (test code = hCG Tot) no gt [facility]MoaktryJRJPTKDEYQ9077-39-88 07:51:00 Test Item Value Reference Range Interpretation Comments MCHC (test code = MCHC) 33.8 32.0-36.0 [facility] HospitalBznjcokIFRLCPOIRI9087-67-99 07:51:00 Test Item Value Reference Range Interpretation Comments MCH (test code = MCH) 30.3 pg 27.0-31.0 [facility] HospitalMguhwbqCMTPCKSEZA2600-91-12 07:51:00 Test Item Value Reference Range Interpretation Comments RDW (test code = RDW) 13.0 11.5-14.5 [place] [id number] 07:51:00 Test Item Value Reference Range Interpretation Comments MPV (test code = MPV) 8.4 7.4-10.4 [facility] HospitalVcerwdlDJNZRRLXHR0052-64-43 07:51:00 Test Item Value Reference Range Interpretation Comments Platelet (test code = Platelet) 356 133-450 [facility] HospitalLszhhxnBLAJYJCLMQ5169-81-07 07:51:00 Test Item Value Reference Range Interpretation Comments RBC (test code = RBC) 4.45 4.20-5.40 [facility] HospitalDacdrqqMPWXHCEYOS5925-45-82 07:51:00 Test Item Value Reference Range Interpretation Comments WBC (test code = WBC) 12.9 3.7-10.4 [facility] HospitalIzjxulhEWFDKOICZG1436-17-06 07:51:00 Test Item Value Reference Range Interpretation Comments Hgb (test code = Hgb) 13.5 12.0-16.0 [facility] HospitalUtxqhtiHYRVUOFMQD1933-12-51 07:51:00 Test Item Value Reference Range Interpretation Comments MCV (test code = MCV) 89.7 80.0-98.0 [facility] HospitalEyehhvmMXOCFYDQFR8393-94-05 07:51:00 Test Item Value Reference Range Interpretation Comments Hct (test code = Hct) 39.9 36.0-48.0 [facility] HospitalOiuveqpZQNNCTJQKS1345-93-25 07:51:00 Test Item Value Reference Range Interpretation Comments Eosinophils # (test code 0.3 See_Comment [A utomated message] The = Eosinophils #) system whic h generated this result tra nsmitted reference range : <=0.5. The reference r ozzy was not used to int erpret this result as normal/abnormal . [facility] HospitalIvvzpqxGVBKJNYKQN1476-93-69 07:51:00 Test Item Value Reference Range Interpretation Comments Lymphocytes # (test code = Lymphocytes 3.6 1.0-5.5 #) [facility] HospitalKdbykkxLCEWYSBEAS8698-45-50 07:51:00 Test Item Value Reference Range Interpretation Comments Monocytes # (test code 0.7 See_Comment [Aut omated message] The = Monocytes #) system which generated this result tra nsmitted reference range : <=0.8. The reference r ozzy was not used to int erpret this result as normal/abnormal . [facility] HospitalQblpflyBXKRGSXZLL8639-07-09 07:51:00 Test Item Value Reference Range Interpretation Comments Segs (test code = Segs) 63.9 45.0-75.0 [facility] HospitalFkhjdvuCHDHEWWFOM0922-43-40 07:51:00 Test Item Value Reference Range Interpretation Comments Segs-Bands # (test code = Segs-Bands #) 8.2 1.5-8.1 [facility] HospitalSyicgplKCXLUCQOXG5834-15-24 07:51:00 Test Item Value Reference Range Interpretation Comments Basophils (test code = 0.7 See_Comment [Aut omated message] The Basophils) system which ge nerated this result tra nsmitted reference range : <=1.0. The reference r ozzy was not used to int erpret this result as normal/abnormal . [facility] HospitalWfcepynKZREDTDHGB5412-81-60 07:51:00 Test Item Value Reference Range Interpretation Comments Monocytes (test code = Monocytes) 5.4 2.0-12.0 [facility] HospitalVlkmzyeARDBKIRFUR1532-25-37 07:51:00 Test Item Value Reference Range Interpretation Comments Eosinophils (test code = 2.3 See_Comment [A utomated message] The Eosinophils) system which ge nerated this result tra nsmitted reference range : <=4.0. The reference r ozzy was not used to int erpret this result as normal/abnormal . [facility] HospitalBuaiuapFMANPMHQWX9221-22-47 07:51:00 Test Item Value Reference Range Interpretation Comments Lymphocytes (test code = Lymphocytes) 27.7 20.0-40.0 [facility] HospitalOfarlyhEMQNCPIVED4914-85-38 07:51:00 Test Item Value Reference Range Interpretation Comments Basophils # (test code 0.1 See_Comment [Aut omated message] The = Basophils #) system which generated this result tra nsmitted reference range : <=0.2. The reference r ozzy was not used to int erpret this result as normal/abnormal . [facility]2015-01-23 07:51:00 Test Item Value Reference Range Interpretation Comments UA Urobilinogen (test code = UA 1.0 0.1-1.0 Urobilinogen) [facility] AND [id number] 07:51:00 Test Item Value Reference Range Interpretation Comments UA Turbidity (test code Cloudy *ABN*(09/04/14 = UA Turbidity) 1:51 AM) [facility] AND [id number] 07:51:00 Test Item Value Reference Range Interpretation Comments UA Color (test code = Red *ABN*(09/04/14 1:51 UA Color) AM) [facility] AND [id number] 07:51:00 Test Item Value Reference Range Interpretation Comments UA Ketones (test code Negative *NA*(09/04/14 = UA Ketones) 1:51 AM) [facility] AND [id number] 07:51:00 Test Item Value Reference Range Interpretation Comments UA Glucose (test code Negative (09/04/14 1:51 = UA Glucose) AM) [facility] AND [id number] 07:51:00 Test Item Value Reference Range Interpretation Comments UA Protein (test code = Trace *ABN*(09/04/14 UA Protein) 1:51 AM) [facility] AND [id number] 07:51:00 Test Item Value Reference Range Interpretation Comments UA pH (test code = UA pH) 8.0 1 5.0-8.0 [facility] AND [id number] 07:51:00 Test Item Value Reference Range Interpretation Comments UA Spec Grav (test code = UA Spec 1.015 1 Grav) [facility] AND [id number] 07:51:00 Test Item Value Reference Range Interpretation Comments UA Bili (test code = Negative *NA*(09/04/14 UA Bili) 1:51 AM) [facility] AND [id number] 07:51:00 Test Item Value Reference Range Interpretation Comments UA Blood (test code = Large *ABN*(09/04/14 UA Blood) 1:51 AM) [facility] AND [id number] 07:51:00 Test Item Value Reference Range Interpretation Comments UA Leuk Est (test Negative (09/04/14 1:51 code = UA Leuk Est) AM) [facility] AND [id number] 07:51:00 Test Item Value Reference Range Interpretation Comments UA Nitrite (test code Negative (09/04/14 1:51 = UA Nitrite) AM) [facility] [id number] 07:51:00 Test Item Value Reference Range Interpretation Comments UA Amorph Joselin (test code = UA Few /HPF Amorph Joselin) [facility] [id number] 07:51:00 Test Item Value Reference Range Interpretation Comments UA RBC (test code 51-100 /HPF See_Comment [Automate d message] The = UA RBC) system which ge nerated this result tra nsmitted reference range : <=2. The reference r ozzy was not used to int erpret this result as normal/abnormal . [facility] AND [id number] 07:51:00 Test Item Value Reference Range Interpretation Comments UA WBC (test code = UA WBC) 6-10 /HPF [facility] AND [id number] 07:51:00 Test Item Value Reference Range Interpretation Comments UA Bacteria (test code = UA Few /HPF Bacteria) [facility] AND [id number] 07:51:00 Test Item Value Reference Range Interpretation Comments UA Sq Epi (test code = UA Sq Occasional /LPF Epi) [facility] [employer] [id number] 07:51:00 Test Item Value Reference Range Interpretation Comments ABO/Rh (test code = ABO/Rh) A POS [facility] [employer] BANK [id number] 07:51:00 Test Item Value Reference Range Interpretation Comments Antibody Scrn (test Negative (09/04/14 1:51 code = Antibody Scrn) AM) [facility] [employer] [id number] 07:51:00 Test Item Value Reference Range Interpretation Comments Albumin Lvl (test code = Albumin Lvl) 3.4 3.5-5.0 [facility] [employer] [id number] 07:51:00 Test Item Value Reference Range Interpretation Comments Alk Phos (test code = Alk Phos) 64 39-136 [facility] [employer] [id number] 07:51:00 Test Item Value Reference Range Interpretation Comments ALT (test code = ALT) 18 See_Comment [Auto mated message] The system which ge nerated this result transmit gaye reference range : <=65. The reference range was not used to interpr et this result as satish l/abnormal. [facility]2015-01-23 07:51:00 Test Item Value Reference Range Interpretation Comments AST (test code = AST) 12 See_Comment [Auto mated message] The system which ge nerated this result transmit gaye reference range : <=37. The reference range was not used to interpr et this result as satish l/abnormal. [place] [id number] 07:51:00 Test Item Value Reference Range Interpretation Comments eGFR (test code = eGFR) 93 [facility]2015-01-23 07:51:00 Test Item Value Reference Range Interpretation Comments Bili Total (test code = Bili Total) 0.3 0.2-1.3 [facility]2015-01-23 07:51:00 Test Item Value Reference Range Interpretation Comments Chloride Lvl (test code = Chloride Lvl) 108 95-109 [facility]2015-01-23 07:51:00 Test Item Value Reference Range Interpretation Comments Sodium Lvl (test code = Sodium Lvl) 138 135-145 [facility]2015-01-23 07:51:00 Test Item Value Reference Range Interpretation Comments Potassium Lvl (test code = Potassium 3.9 3.5-5.1 Lvl) [facility]2015-01-23 07:51:00 Test Item Value Reference Range Interpretation Comments CO2 (test code = CO2) 22 24-32 [facility]2015-01-23 07:51:00 Test Item Value Reference Range Interpretation Comments Calcium Lvl (test code = Calcium Lvl) 8.8 8.5-10.5 [facility]2015-01-23 07:51:00 Test Item Value Reference Range Interpretation Comments Glucose Lvl (test code = Glucose Lvl) 98 70-99 [facility]2015-01-23 07:51:00 Test Item Value Reference Range Interpretation Comments Total Protein (test code = Total 7.3 6.4-8.4 Protein) [facility]2015-01-23 07:51:00 Test Item Value Reference Range Interpretation Comments BUN (test code = BUN) 12 7-22 [facility]2015-01-23 07:51:00 Test Item Value Reference Range Interpretation Comments Creatinine Lvl (test code = Creatinine 0.8 0.5-1.4 Lvl) [facility]2015-01-23 07:51:00 Test Item Value Reference Range Interpretation Comments AGAP (test code = AGAP) 11.9 10.0-20.0 [facility]2015-01-23 07:51:00 Test Item Value Reference Range Interpretation Comments B/C Ratio (test code = B/C Ratio) 15 6-25 [facility]2015-01-23 07:51:00 Test Item Value Reference Range Interpretation Comments Globulin (test code = Globulin) 3.9 2.0-4.0 [facility]2015-01-23 07:51:00 Test Item Value Reference Range Interpretation Comments A/G Ratio (test code = A/G Ratio) 0.9 0.7-1.6 [place] [id number] 07:51:00 Test Item Value Reference Range Interpretation Comments hCG Tot (test code = hCG Tot) no gt [facility]XtdgegnQOXHOFQFFZ4689-01-25 07:51:00 Test Item Value Reference Range Interpretation Comments MCHC (test code = MCHC) 33.8 32.0-36.0 [facility] HospitalRhsvwjuTJBQLFQDOZ8766-24-20 07:51:00 Test Item Value Reference Range Interpretation Comments MCH (test code = MCH) 30.3 pg 27.0-31.0 [facility] HospitalVnussecPXMIWYSKPW2722-64-48 07:51:00 Test Item Value Reference Range Interpretation Comments RDW (test code = RDW) 13.0 11.5-14.5 [facility]QhgepmdJAPDDQPNHE4446-33-89 07:51:00 Test Item Value Reference Range Interpretation Comments MPV (test code = MPV) 8.4 7.4-10.4 [facility] Hos[id number] 07:51:00 Test Item Value Reference Range Interpretation Comments Platelet (test code = Platelet) 356 133-450 [facility] HospitalEwmbuodTPDIZJLBIP2091-54-85 07:51:00 Test Item Value Reference Range Interpretation Comments RBC (test code = RBC) 4.45 4.20-5.40 [facility] HospitalWgkmcxiSKVDGAVMCZ6741-54-83 07:51:00 Test Item Value Reference Range Interpretation Comments WBC (test code = WBC) 12.9 3.7-10.4 [facility] HospitalYsjgzcbLZLAZQOBOR6412-60-42 07:51:00 Test Item Value Reference Range Interpretation Comments Hgb (test code = Hgb) 13.5 12.0-16.0 [facility] HospitalJhjwnhlVPKQSRJWJU4395-51-34 07:51:00 Test Item Value Reference Range Interpretation Comments MCV (test code = MCV) 89.7 80.0-98.0 [facility] HospitalLglykfmFZJEJLJSWQ7995-01-22 07:51:00 Test Item Value Reference Range Interpretation Comments Hct (test code = Hct) 39.9 36.0-48.0 [facility] HospitalLuuqfopKYGXUIMJYL6116-90-68 07:51:00 Test Item Value Reference Range Interpretation Comments Eosinophils # (test code 0.3 See_Comment [A utomated message] The = Eosinophils #) system whic h generated this result tra nsmitted reference range : <=0.5. The reference r ozzy was not used to int erpret this result as normal/abnormal . [facility] HospitalBhzoawsZZKBUFNPBD2390-40-09 07:51:00 Test Item Value Reference Range Interpretation Comments Lymphocytes # (test code = Lymphocytes 3.6 1.0-5.5 #) [facility] HospitalRmufhtpFYRLBXBPMD5619-21-45 07:51:00 Test Item Value Reference Range Interpretation Comments Monocytes # (test code 0.7 See_Comment [Aut omated message] The = Monocytes #) system which generated this result tra nsmitted reference range : <=0.8. The reference r ozzy was not used to int erpret this result as normal/abnormal . [facility] HospitalHmraenlEHTAKXPPQY8164-88-16 07:51:00 Test Item Value Reference Range Interpretation Comments Segs (test code = Segs) 63.9 45.0-75.0 [facility] HospitalVkijykyHRNXNADDZN7139-59-41 07:51:00 Test Item Value Reference Range Interpretation Comments Segs-Bands # (test code = Segs-Bands #) 8.2 1.5-8.1 [facility] Ho[id number] 07:51:00 Test Item Value Reference Range Interpretation Comments Basophils (test code = 0.7 See_Comment [Aut omated message] The Basophils) system which ge nerated this result tra nsmitted reference range : <=1.0. The reference r ozzy was not used to int erpret this result as normal/abnormal . [facility] HospitalWdvhcipLQYCJYDYDI5189-84-05 07:51:00 Test Item Value Reference Range Interpretation Comments Monocytes (test code = Monocytes) 5.4 2.0-12.0 [facility] HospitalYefooshWBPCHVRQHC1707-08-58 07:51:00 Test Item Value Reference Range Interpretation Comments Eosinophils (test code = 2.3 See_Comment [A utomated message] The Eosinophils) system which ge nerated this result tra nsmitted reference range : <=4.0. The reference r ozzy was not used to int erpret this result as normal/abnormal . [facility] HospitalSqyvwmaSWBMXFWSTT5583-96-76 07:51:00 Test Item Value Reference Range Interpretation Comments Lymphocytes (test code = Lymphocytes) 27.7 20.0-40.0 [facility]QxilmfvZMCYGFZGIV1097-26-56 07:51:00 Test Item Value Reference Range Interpretation Comments Basophils # (test code 0.1 See_Comment [Aut omated message] The = Basophils #) system which generated this result tra nsmitted reference range : <=0.2. The reference r ozzy was not used to int erpret this result as normal/abnormal . [facility] AND [id number] 07:51:00 Test Item Value Reference Range Interpretation Comments UA Urobilinogen (test code = UA 1.0 0.1-1.0 Urobilinogen) [facility] AND [id number] 07:51:00 Test Item Value Reference Range Interpretation Comments UA Turbidity (test code Cloudy *ABN*(09/04/14 = UA Turbidity) 1:51 AM) [facility] AND [id number] 07:51:00 Test Item Value Reference Range Interpretation Comments UA Color (test code = Red *ABN*(09/04/14 1:51 UA Color) AM) [facility] AND [id number] 07:51:00 Test Item Value Reference Range Interpretation Comments UA Ketones (test code Negative *NA*(09/04/14 = UA Ketones) 1:51 AM) [facility] AND [id number] 07:51:00 Test Item Value Reference Range Interpretation Comments UA Glucose (test code Negative (09/04/14 1:51 = UA Glucose) AM) [facility] AND [id number] 07:51:00 Test Item Value Reference Range Interpretation Comments UA Protein (test code = Trace *ABN*(09/04/14 UA Protein) 1:51 AM) [facility] AND [id number] 07:51:00 Test Item Value Reference Range Interpretation Comments UA pH (test code = UA pH) 8.0 1 5.0-8.0 [facility] AND [id number] 07:51:00 Test Item Value Reference Range Interpretation Comments UA Spec Grav (test code = UA Spec 1.015 1 Grav) [facility] AND [id number] 07:51:00 Test Item Value Reference Range Interpretation Comments UA Bili (test code = Negative *NA*(09/04/14 UA Bili) 1:51 AM) [facility] AND [id number] 07:51:00 Test Item Value Reference Range Interpretation Comments UA Blood (test code = Large *ABN*(09/04/14 UA Blood) 1:51 AM) [facility] AND [id number] 07:51:00 Test Item Value Reference Range Interpretation Comments UA Leuk Est (test Negative (09/04/14 1:51 code = UA Leuk Est) AM) [facility] AND [id number] 07:51:00 Test Item Value Reference Range Interpretation Comments UA Nitrite (test code Negative (09/04/14 1:51 = UA Nitrite) AM) [facility] AND [id number] 07:51:00 Test Item Value Reference Range Interpretation Comments UA Amorph Joselin (test code = UA Few /HPF Amorph Joselin) [facility] AND [id number] 07:51:00 Test Item Value Reference Range Interpretation Comments UA RBC (test code 51-100 /HPF See_Comment [Automate d message] The = UA RBC) system which ge nerated this result tra nsmitted reference range : <=2. The reference r ozzy was not used to int erpret this result as normal/abnormal . [facility] AND [id number] 07:51:00 Test Item Value Reference Range Interpretation Comments UA WBC (test code = UA WBC) 6-10 /HPF [facility] AND [id number] 07:51:00 Test Item Value Reference Range Interpretation Comments UA Bacteria (test code = UA Few /HPF Bacteria) [facility] AND [id number] 07:51:00 Test Item Value Reference Range Interpretation Comments UA Sq Epi (test code = UA Sq Occasional /LPF Epi) [facility] [employer] [facility] [id number] 07:51:00 Test Item Value Reference Range Interpretation Comments ABO/Rh (test code = ABO/Rh) A POS [facility] [employer] [facility] [id number] 07:51:00 Test Item Value Reference Range Interpretation Comments Antibody Scrn (test Negative (09/04/14 1:51 code = Antibody Scrn) AM) [facility] [id number] 07:51:00 Test Item Value Reference Range Interpretation Comments Albumin Lvl (test code = Albumin Lvl) 3.4 3.5-5.0 [facility] [id number] 07:51:00 Test Item Value Reference Range Interpretation Comments Alk Phos (test code = Alk Phos) 64 39-136 [facility] [id number] 07:51:00 Test Item Value Reference Range Interpretation Comments ALT (test code = ALT) 18 See_Comment [Auto mated message] The system which ge nerated this result transmit gaye reference range : <=65. The reference range was not used to interpr et this result as satish l/abnormal. [facility] [employer] [id number] 07:51:00 Test Item Value Reference Range Interpretation Comments AST (test code = AST) 12 See_Comment [Auto mated message] The system which ge nerated this result transmit gaye reference range : <=37. The reference range was not used to interpr et this result as satish l/abnormal. [facility] [employer] [id number] 07:51:00 Test Item Value Reference Range Interpretation Comments eGFR (test code = eGFR) 93 [facility] [id number] 07:51:00 Test Item Value Reference Range Interpretation Comments Bili Total (test code = Bili Total) 0.3 0.2-1.3 [facility] [id number] 07:51:00 Test Item Value Reference Range Interpretation Comments Chloride Lvl (test code = Chloride Lvl) 108 95-109 [facility] [id number] 07:51:00 Test Item Value Reference Range Interpretation Comments Sodium Lvl (test code = Sodium Lvl) 138 135-145 [facility]2015-01-23 07:51:00 Test Item Value Reference Range Interpretation Comments Potassium Lvl (test code = Potassium 3.9 3.5-5.1 Lvl) [facility]2015-01-23 07:51:00 Test Item Value Reference Range Interpretation Comments CO2 (test code = CO2) 22 24-32 [facility]2015-01-23 07:51:00 Test Item Value Reference Range Interpretation Comments Calcium Lvl (test code = Calcium Lvl) 8.8 8.5-10.5 [facility]2015-01-23 07:51:00 Test Item Value Reference Range Interpretation Comments Glucose Lvl (test code = Glucose Lvl) 98 70-99 [facility]2015-01-23 07:51:00 Test Item Value Reference Range Interpretation Comments Total Protein (test code = Total 7.3 6.4-8.4 Protein) [facility]2015-01-23 07:51:00 Test Item Value Reference Range Interpretation Comments BUN (test code = BUN) 12 7-22 [facility]2015-01-23 07:51:00 Test Item Value Reference Range Interpretation Comments Creatinine Lvl (test code = Creatinine 0.8 0.5-1.4 Lvl) [facility]2015-01-23 07:51:00 Test Item Value Reference Range Interpretation Comments AGAP (test code = AGAP) 11.9 10.0-20.0 [facility]2015-01-23 07:51:00 Test Item Value Reference Range Interpretation Comments B/C Ratio (test code = B/C Ratio) 15 6-25 [facility]2015-01-23 07:51:00 Test Item Value Reference Range Interpretation Comments Globulin (test code = Globulin) 3.9 2.0-4.0 [facility]2015-01-23 07:51:00 Test Item Value Reference Range Interpretation Comments A/G Ratio (test code = A/G Ratio) 0.9 0.7-1.6 [facility]XOWFUJWTWNGO1413-21-33 07:51:00 Test Item Value Reference Range Interpretation Comments hCG Tot (test code = hCG Tot) no gt [facility]VQQOUDMXKK8243-11-22 07:51:00 Test Item Value Reference Range Interpretation Comments MCHC (test code = MCHC) 33.8 32.0-36.0 [facility]YgognldUPCJFCWRKM6540-55-08 07:51:00 Test Item Value Reference Range Interpretation Comments MCH (test code = MCH) 30.3 pg 27.0-31.0 [facility] HospitalRqnjsgbAXLNAEYUEF3764-24-45 07:51:00 Test Item Value Reference Range Interpretation Comments RDW (test code = RDW) 13.0 11.5-14.5 [facility] HospitalPurzsuwMSOXTMUYKK4398-03-02 07:51:00 Test Item Value Reference Range Interpretation Comments MPV (test code = MPV) 8.4 7.4-10.4 [facility] HospitalKiiixfiKNNDVAUGTD6959-81-01 07:51:00 Test Item Value Reference Range Interpretation Comments Platelet (test code = Platelet) 356 133-450 [facility] HospitalUpcbkzvSDCFEOCNPE3565-18-01 07:51:00 Test Item Value Reference Range Interpretation Comments RBC (test code = RBC) 4.45 4.20-5.40 [id number] 07:51:00 Test Item Value Reference Range Interpretation Comments WBC (test code = WBC) 12.9 3.7-10.4 [facility] Hos[id number] 07:51:00 Test Item Value Reference Range Interpretation Comments Hgb (test code = Hgb) 13.5 12.0-16.0 [facility] HospitalMxbqmpxSRYBJTFDAG1912-23-95 07:51:00 Test Item Value Reference Range Interpretation Comments MCV (test code = MCV) 89.7 80.0-98.0 [facility] HospitalMbmicxdPFKGTROKJU2649-47-03 07:51:00 Test Item Value Reference Range Interpretation Comments Hct (test code = Hct) 39.9 36.0-48.0 [facility] HospitalJiwfxreZLEPVKRGHL6129-53-03 07:51:00 Test Item Value Reference Range Interpretation Comments Eosinophils # (test code 0.3 See_Comment [A utomated message] The = Eosinophils #) system whic h generated this result tra nsmitted reference range : <=0.5. The reference r ozzy was not used to int erpret this result as normal/abnormal . [facility] HospitalIqraegcVSSKFWWBZZ5249-94-28 07:51:00 Test Item Value Reference Range Interpretation Comments Lymphocytes # (test code = Lymphocytes 3.6 1.0-5.5 #) [facility] HospitalUnqkxymTSQQNIWATJ7342-72-97 07:51:00 Test Item Value Reference Range Interpretation Comments Monocytes # (test code 0.7 See_Comment [Aut omated message] The = Monocytes #) system which generated this result tra nsmitted reference range : <=0.8. The reference r ozzy was not used to int erpret this result as normal/abnormal . [facility] HospitalMljzmyqHQIWAYPLDR4584-68-15 07:51:00 Test Item Value Reference Range Interpretation Comments Segs (test code = Segs) 63.9 45.0-75.0 [facility] HospitalGgmsvxwAGXZLPSYPK7523-19-97 07:51:00 Test Item Value Reference Range Interpretation Comments Segs-Bands # (test code = Segs-Bands #) 8.2 1.5-8.1 [facility] HospitalOfvsgekZQHHHLFJOW2593-04-14 07:51:00 Test Item Value Reference Range Interpretation Comments Basophils (test code = 0.7 See_Comment [Aut omated message] The Basophils) system which ge nerated this result tra nsmitted reference range : <=1.0. The reference r ozzy was not used to int erpret this result as normal/abnormal . [facility] HospitalJsugrocOZOFIKOXJU2831-26-61 07:51:00 Test Item Value Reference Range Interpretation Comments Monocytes (test code = Monocytes) 5.4 2.0-12.0 [facility] HospitalVgpjgcvWMZJTTHAWY7468-72-14 07:51:00 Test Item Value Reference Range Interpretation Comments Eosinophils (test code = 2.3 See_Comment [A utomated message] The Eosinophils) system which ge nerated this result tra nsmitted reference range : <=4.0. The reference r ozzy was not used to int erpret this result as normal/abnormal . [facility] HospitalLxgzjoqZCPPFGZTUP3561-44-63 07:51:00 Test Item Value Reference Range Interpretation Comments Lymphocytes (test code = Lymphocytes) 27.7 20.0-40.0 [facility] HospitalEpdirgfQEBIXGVJQR4020-56-32 07:51:00 Test Item Value Reference Range Interpretation Comments Basophils # (test code 0.1 See_Comment [Aut omated message] The = Basophils #) system which generated this result tra nsmitted reference range : <=0.2. The reference r ozzy was not used to int erpret this result as normal/abnormal . [facility] AND [id number] 07:51:00 Test Item Value Reference Range Interpretation Comments UA Urobilinogen (test code = UA 1.0 0.1-1.0 Urobilinogen) [facility] AND [id number] 07:51:00 Test Item Value Reference Range Interpretation Comments UA Turbidity (test code Cloudy *ABN*(09/04/14 = UA Turbidity) 1:51 AM) [facility] AND [id number] 07:51:00 Test Item Value Reference Range Interpretation Comments UA Color (test code = Red *ABN*(09/04/14 1:51 UA Color) AM) [facility] AND [id number] 07:51:00 Test Item Value Reference Range Interpretation Comments UA Ketones (test code Negative *NA*(09/04/14 = UA Ketones) 1:51 AM) [facility] AND [id number] 07:51:00 Test Item Value Reference Range Interpretation Comments UA Glucose (test code Negative (09/04/14 1:51 = UA Glucose) AM) [facility] AND [id number] 07:51:00 Test Item Value Reference Range Interpretation Comments UA Protein (test code = Trace *ABN*(09/04/14 UA Protein) 1:51 AM) [facility] AND [id number] 07:51:00 Test Item Value Reference Range Interpretation Comments UA pH (test code = UA pH) 8.0 1 5.0-8.0 [facility] AND [id number] 07:51:00 Test Item Value Reference Range Interpretation Comments UA Spec Grav (test code = UA Spec 1.015 1 Grav) [facility] AND [id number] 07:51:00 Test Item Value Reference Range Interpretation Comments UA Bili (test code = Negative *NA*(09/04/14 UA Bili) 1:51 AM) [facility] AND [id number] 07:51:00 Test Item Value Reference Range Interpretation Comments UA Blood (test code = Large *ABN*(09/04/14 UA Blood) 1:51 AM) [facility] AND [id number] 07:51:00 Test Item Value Reference Range Interpretation Comments UA Leuk Est (test Negative (09/04/14 1:51 code = UA Leuk Est) AM) [facility] [id number] 07:51:00 Test Item Value Reference Range Interpretation Comments UA Nitrite (test code Negative (09/04/14 1:51 = UA Nitrite) AM) [facility] AND [id number] 07:51:00 Test Item Value Reference Range Interpretation Comments UA Amorph Joselin (test code = UA Few /HPF Amorph Joselin) [facility] [id number] 07:51:00 Test Item Value Reference Range Interpretation Comments UA RBC (test code 51-100 /HPF See_Comment [Automate d message] The = UA RBC) system which ge nerated this result tra nsmitted reference range : <=2. The reference r ozzy was not used to int erpret this result as normal/abnormal . [facility] AND [id number] 07:51:00 Test Item Value Reference Range Interpretation Comments UA WBC (test code = UA WBC) 6-10 /HPF [facility] [id number] 07:51:00 Test Item Value Reference Range Interpretation Comments UA Bacteria (test code = UA Few /HPF Bacteria) [facility] AND [id number] 07:51:00 Test Item Value Reference Range Interpretation Comments UA Sq Epi (test code = UA Sq Occasional /LPF Epi) [facility] [employer] [id number] 07:51:00 Test Item Value Reference Range Interpretation Comments ABO/Rh (test code = ABO/Rh) A POS [facility] [employer] [id number] 07:51:00 Test Item Value Reference Range Interpretation Comments Antibody Scrn (test Negative (09/04/14 1:51 code = Antibody Scrn) AM) [facility] [employer] [id number] 07:51:00 Test Item Value Reference Range Interpretation Comments Albumin Lvl (test code = Albumin Lvl) 3.4 3.5-5.0 [facility] [employer] [id number] 07:51:00 Test Item Value Reference Range Interpretation Comments Alk Phos (test code = Alk Phos) 64 39-136 [facility] [employer] [id number] 07:51:00 Test Item Value Reference Range Interpretation Comments ALT (test code = ALT) 18 <=65 [facility]2015-01-23 07:51:00 Test Item Value Reference Range Interpretation Comments AST (test code = AST) 12 <=37 [facility]2015-01-23 07:51:00 Test Item Value Reference Range Interpretation Comments eGFR (test code = eGFR) 93 [facility]2015-01-23 07:51:00 Test Item Value Reference Range Interpretation Comments Bili Total (test code = Bili Total) 0.3 0.2-1.3 [facility]2015-01-23 07:51:00 Test Item Value Reference Range Interpretation Comments Chloride Lvl (test code = Chloride Lvl) 108 95-109 [facility]2015-01-23 07:51:00 Test Item Value Reference Range Interpretation Comments Sodium Lvl (test code = Sodium Lvl) 138 135-145 [facility]2015-01-23 07:51:00 Test Item Value Reference Range Interpretation Comments Potassium Lvl (test code = Potassium 3.9 3.5-5.1 Lvl) [facility]2015-01-23 07:51:00 Test Item Value Reference Range Interpretation Comments CO2 (test code = CO2) 22 24-32 [facility]2015-01-23 07:51:00 Test Item Value Reference Range Interpretation Comments Calcium Lvl (test code = Calcium Lvl) 8.8 8.5-10.5 [facility]2015-01-23 07:51:00 Test Item Value Reference Range Interpretation Comments Glucose Lvl (test code = Glucose Lvl) 98 70-99 [facility]2015-01-23 07:51:00 Test Item Value Reference Range Interpretation Comments Total Protein (test code = Total 7.3 6.4-8.4 Protein) [facility]2015-01-23 07:51:00 Test Item Value Reference Range Interpretation Comments BUN (test code = BUN) 12 - [facility]2015-01-23 07:51:00 Test Item Value Reference Range Interpretation Comments Creatinine Lvl (test code = Creatinine 0.8 0.5-1.4 Lvl) [facility]2015-01-23 07:51:00 Test Item Value Reference Range Interpretation Comments AGAP (test code = AGAP) 11.9 10.0-20.0 [facility]2015-01-23 07:51:00 Test Item Value Reference Range Interpretation Comments B/C Ratio (test code = B/C Ratio) 15 6-25 [facility]2015-01-23 07:51:00 Test Item Value Reference Range Interpretation Comments Globulin (test code = Globulin) 3.9 2.0-4.0 [facility]2015-01-23 07:51:00 Test Item Value Reference Range Interpretation Comments A/G Ratio (test code = A/G Ratio) 0.9 0.7-1.6 [facility]DXFWPVPZDXVPA8207-97-26 07:51:00 Test Item Value Reference Range Interpretation Comments hCG Tot (test code = hCG Tot) no gt [facility]OpylcjcUPZAOMUSOE0979-61-02 07:51:00 Test Item Value Reference Range Interpretation Comments MCHC (test code = MCHC) 33.8 32.0-36.0 [facility] HospitalYhikbphOCNRQVVEOH5694-82-14 07:51:00 Test Item Value Reference Range Interpretation Comments MCH (test code = MCH) 30.3 pg 27.0-31.0 [facility] HospitalXvqbmjmSFZMAEAPYP7987-70-63 07:51:00 Test Item Value Reference Range Interpretation Comments RDW (test code = RDW) 13.0 11.5-14.5 [facility]JhlcwztNJNPTNDYAU3589-13-74 07:51:00 Test Item Value Reference Range Interpretation Comments MPV (test code = MPV) 8.4 7.4-10.4 [facility]OwdnzpeXJHWHDZIFJ3961-46-39 07:51:00 Test Item Value Reference Range Interpretation Comments Platelet (test code = Platelet) 356 133-450 [facility] HospitalYwfbaqnLULEWFAPGG1157-11-09 07:51:00 Test Item Value Reference Range Interpretation Comments RBC (test code = RBC) 4.45 4.20-5.40 [facility] HospitalLzvwonnPUCCFJYKAL7021-07-48 07:51:00 Test Item Value Reference Range Interpretation Comments WBC (test code = WBC) 12.9 3.7-10.4 [facility] HospitalOojjjacPAYLZVPMON2063-14-25 07:51:00 Test Item Value Reference Range Interpretation Comments Hgb (test code = Hgb) 13.5 12.0-16.0 [facility] HospitalDquxpmfPSSGZUVWVN0798-00-45 07:51:00 Test Item Value Reference Range Interpretation Comments MCV (test code = MCV) 89.7 80.0-98.0 [facility] HospitalStchusnWVUKVEYNRR4841-63-00 07:51:00 Test Item Value Reference Range Interpretation Comments Hct (test code = Hct) 39.9 36.0-48.0 [facility] HospitalWvcfmytGYXTUNMGRT1289-46-81 07:51:00 Test Item Value Reference Range Interpretation Comments Eosinophils # (test code = Eosinophils 0.3 <=0.5 #) [facility] HospitalYxsakylRKSYTBURWV5990-08-23 07:51:00 Test Item Value Reference Range Interpretation Comments Lymphocytes # (test code = Lymphocytes 3.6 1.0-5.5 #) [facility] HospitalTfjnyzgXLHQWGAQUU8332-40-56 07:51:00 Test Item Value Reference Range Interpretation Comments Monocytes # (test code = Monocytes #) 0.7 <=0.8 [facility] HospitalIfkwjryELSOLSSAGR4089-94-56 07:51:00 Test Item Value Reference Range Interpretation Comments Segs (test code = Segs) 63.9 45.0-75.0 [facility] HospitalLkxfoywLVVWTTXIRP7774-84-37 07:51:00 Test Item Value Reference Range Interpretation Comments Segs-Bands # (test code = Segs-Bands #) 8.2 1.5-8.1 [facility] HospitalYbuceonUCNYYDMNZM6146-58-62 07:51:00 Test Item Value Reference Range Interpretation Comments Basophils (test code = Basophils) 0.7 <=1.0 [facility] HospitalLdczgylSTARMADBXH3762-61-50 07:51:00 Test Item Value Reference Range Interpretation Comments Monocytes (test code = Monocytes) 5.4 2.0-12.0 [facility] HospitalTyjvjbkTKKBJCXOMT7614-96-14 07:51:00 Test Item Value Reference Range Interpretation Comments Eosinophils (test code = Eosinophils) 2.3 <=4.0 [facility] HospitalGlgwstvSQOWWXLVYF1732-52-94 07:51:00 Test Item Value Reference Range Interpretation Comments Lymphocytes (test code = Lymphocytes) 27.7 20.0-40.0 [facility] HospitalCoeomxjNLIBNZTTBR5589-59-44 07:51:00 Test Item Value Reference Range Interpretation Comments Basophils # (test code = Basophils #) 0.1 <=0.2 [facility] [id number] 07:51:00 Test Item Value Reference Range Interpretation Comments UA Urobilinogen (test code = UA 1.0 0.1-1.0 Urobilinogen) [facility] [id number] 07:51:00 Test Item Value Reference Range Interpretation Comments UA Turbidity (test code Cloudy *ABN*(09/04/14 = UA Turbidity) 1:51 AM) [facility] AND [id number] 07:51:00 Test Item Value Reference Range Interpretation Comments UA Color (test code = Red *ABN*(09/04/14 1:51 UA Color) AM) [facility] AND [id number] 07:51:00 Test Item Value Reference Range Interpretation Comments UA Ketones (test code Negative *NA*(09/04/14 = UA Ketones) 1:51 AM) [facility] AND [id number] 07:51:00 Test Item Value Reference Range Interpretation Comments UA Glucose (test code Negative (09/04/14 1:51 = UA Glucose) AM) [facility] AND [id number] 07:51:00 Test Item Value Reference Range Interpretation Comments UA Protein (test code = Trace *ABN*(09/04/14 UA Protein) 1:51 AM) [facility] AND [id number] 07:51:00 Test Item Value Reference Range Interpretation Comments UA pH (test code = UA pH) 8.0 1 5.0-8.0 [facility] AND [id number] 07:51:00 Test Item Value Reference Range Interpretation Comments UA Spec Grav (test code = UA Spec 1.015 1 Grav) [facility] AND [id number] 07:51:00 Test Item Value Reference Range Interpretation Comments UA Bili (test code = Negative *NA*(09/04/14 UA Bili) 1:51 AM) [facility] AND [id number] 07:51:00 Test Item Value Reference Range Interpretation Comments UA Blood (test code = Large *ABN*(09/04/14 UA Blood) 1:51 AM) [facility] AND [id number] 07:51:00 Test Item Value Reference Range Interpretation Comments UA Leuk Est (test Negative (09/04/14 1:51 code = UA Leuk Est) AM) [facility] AND [id number] 07:51:00 Test Item Value Reference Range Interpretation Comments UA Nitrite (test code Negative (09/04/14 1:51 = UA Nitrite) AM) [facility] AND [id number] 07:51:00 Test Item Value Reference Range Interpretation Comments UA Amorph Joselin (test code = UA Few /HPF Amorph Joselin) [facility] AND [id number] 07:51:00 Test Item Value Reference Range Interpretation Comments UA RBC (test code = UA RBC) 51-100 /HPF <=2 [facility] AND [id number] 07:51:00 Test Item Value Reference Range Interpretation Comments UA WBC (test code = UA WBC) 6-10 /HPF [facility] AND [id number] 07:51:00 Test Item Value Reference Range Interpretation Comments UA Bacteria (test code = UA Few /HPF Bacteria) [facility] [facility] AND [id number] 07:51:00 Test Item Value Reference Range Interpretation Comments UA Sq Epi (test code = UA Sq Occasional /LPF Epi) [facility] [employer] [id number] 07:51:00 Test Item Value Reference Range Interpretation Comments ABO/Rh (test code = ABO/Rh) A POS [facility] [employer] [id number] 07:51:00 Test Item Value Reference Range Interpretation Comments Antibody Scrn (test Negative (09/04/14 1:51 code = Antibody Scrn) AM) [facility] [employer] [id number] 07:51:00 Test Item Value Reference Range Interpretation Comments Albumin Lvl (test code = Albumin Lvl) 3.4 3.5-5.0 [facility] [employer] [id number] 07:51:00 Test Item Value Reference Range Interpretation Comments Alk Phos (test code = Alk Phos) 64 39-136 [facility] [employer] [id number] 07:51:00 Test Item Value Reference Range Interpretation Comments ALT (test code = ALT) 18 See_Comment [Auto mated message] The system which ge nerated this result transmit gaye reference range : <=65. The reference range was not used to interpr et this result as satish l/abnormal. [facility]2015-01-23 07:51:00 Test Item Value Reference Range Interpretation Comments AST (test code = AST) 12 See_Comment [Auto mated message] The system which ge nerated this result transmit gaye reference range : <=37. The reference range was not used to interpr et this result as satish l/abnormal. [facility]2015-01-23 07:51:00 Test Item Value Reference Range Interpretation Comments eGFR (test code = eGFR) 93 [facility]2015-01-23 07:51:00 Test Item Value Reference Range Interpretation Comments Bili Total (test code = Bili Total) 0.3 0.2-1.3 [facility]2015-01-23 07:51:00 Test Item Value Reference Range Interpretation Comments Chloride Lvl (test code = Chloride Lvl) 108 95-109 [facility]2015-01-23 07:51:00 Test Item Value Reference Range Interpretation Comments Sodium Lvl (test code = Sodium Lvl) 138 135-145 [facility]2015-01-23 07:51:00 Test Item Value Reference Range Interpretation Comments Potassium Lvl (test code = Potassium 3.9 3.5-5.1 Lvl) [facility]2015-01-23 07:51:00 Test Item Value Reference Range Interpretation Comments CO2 (test code = CO2) -32 [facility]2015-01-23 07:51:00 Test Item Value Reference Range Interpretation Comments Calcium Lvl (test code = Calcium Lvl) 8.8 8.5-10.5 [facility]2015-01-23 07:51:00 Test Item Value Reference Range Interpretation Comments Glucose Lvl (test code = Glucose Lvl) 98 70-99 [facility]2015-01-23 07:51:00 Test Item Value Reference Range Interpretation Comments Total Protein (test code = Total 7.3 6.4-8.4 Protein) [facility]2015-01-23 07:51:00 Test Item Value Reference Range Interpretation Comments BUN (test code = BUN) 12 7- [facility]2015-01-23 07:51:00 Test Item Value Reference Range Interpretation Comments Creatinine Lvl (test code = Creatinine 0.8 0.5-1.4 Lvl) [facility]2015-01-23 07:51:00 Test Item Value Reference Range Interpretation Comments AGAP (test code = AGAP) 11.9 10.0-20.0 [facility]2015-01-23 07:51:00 Test Item Value Reference Range Interpretation Comments B/C Ratio (test code = B/C Ratio) 15 6-25 [facility]2015-01-23 07:51:00 Test Item Value Reference Range Interpretation Comments Globulin (test code = Globulin) 3.9 2.0-4.0 [facility]2015-01-23 07:51:00 Test Item Value Reference Range Interpretation Comments A/G Ratio (test code = A/G Ratio) 0.9 0.7-1.6 [place] [id number] 07:51:00 Test Item Value Reference Range Interpretation Comments hCG Tot (test code = hCG Tot) no gt [id number] 07:51:00 Test Item Value Reference Range Interpretation Comments MCHC (test code = MCHC) 33.8 32.0-36.0 [id number] 07:51:00 Test Item Value Reference Range Interpretation Comments MCH (test code = MCH) 30.3 pg 27.0-31.0 [facility]ReymwmmCVHIUNSBLP0240-10-36 07:51:00 Test Item Value Reference Range Interpretation Comments RDW (test code = RDW) 13.0 11.5-14.5 [facility] HospitalBmmqqpaDLPTNJWEKC2749-09-54 07:51:00 Test Item Value Reference Range Interpretation Comments MPV (test code = MPV) 8.4 7.4-10.4 [facility] H[id number] 07:51:00 Test Item Value Reference Range Interpretation Comments Platelet (test code = Platelet) 356 133-450 [facility] Hos[id number] 07:51:00 Test Item Value Reference Range Interpretation Comments RBC (test code = RBC) 4.45 4.20-5.40 [facility] HospitalIjxukweDPLNKNKPIF5951-92-98 07:51:00 Test Item Value Reference Range Interpretation Comments WBC (test code = WBC) 12.9 3.7-10.4 [facility] HospitalRlfqbkpCHZMNQRGVO3531-60-05 07:51:00 Test Item Value Reference Range Interpretation Comments Hgb (test code = Hgb) 13.5 12.0-16.0 [facility] Hos[id number] 07:51:00 Test Item Value Reference Range Interpretation Comments MCV (test code = MCV) 89.7 80.0-98.0 [facility] Hos[id number] 07:51:00 Test Item Value Reference Range Interpretation Comments Hct (test code = Hct) 39.9 36.0-48.0 [place] [id number] 07:51:00 Test Item Value Reference Range Interpretation Comments Eosinophils # (test code 0.3 See_Comment [A utomated message] The = Eosinophils #) system whic h generated this result tra nsmitted reference range : <=0.5. The reference r ozzy was not used to int erpret this result as normal/abnormal . [facility] HospitalCdgbzynLINYTMRERZ2086-84-04 07:51:00 Test Item Value Reference Range Interpretation Comments Lymphocytes # (test code = Lymphocytes 3.6 1.0-5.5 #) [facility] HospitalOfzajkbDFNYPCEOYJ4835-38-28 07:51:00 Test Item Value Reference Range Interpretation Comments Monocytes # (test code 0.7 See_Comment [Aut omated message] The = Monocytes #) system which generated this result tra nsmitted reference range : <=0.8. The reference r ozzy was not used to int erpret this result as normal/abnormal . [facility] HospitalRepfpnwBVFQSSZQDC4865-78-40 07:51:00 Test Item Value Reference Range Interpretation Comments Segs (test code = Segs) 63.9 45.0-75.0 [facility] H[id number] 07:51:00 Test Item Value Reference Range Interpretation Comments Segs-Bands # (test code = Segs-Bands #) 8.2 1.5-8.1 [facility] HospitalOkzvpyyJKUGVVDKYR7112-77-17 07:51:00 Test Item Value Reference Range Interpretation Comments Basophils (test code = 0.7 See_Comment [Aut omated message] The Basophils) system which ge nerated this result tra nsmitted reference range : <=1.0. The reference r ozzy was not used to int erpret this result as normal/abnormal . [facility] Ho[id number] 07:51:00 Test Item Value Reference Range Interpretation Comments Monocytes (test code = Monocytes) 5.4 2.0-12.0 [facility] HospitalPuivujuAQKZTVZKCJ6191-21-30 07:51:00 Test Item Value Reference Range Interpretation Comments Eosinophils (test code = 2.3 See_Comment [A utomated message] The Eosinophils) system which ge nerated this result tra nsmitted reference range : <=4.0. The reference r ozzy was not used to int erpret this result as normal/abnormal . [facility] Hos[id number] 07:51:00 Test Item Value Reference Range Interpretation Comments Lymphocytes (test code = Lymphocytes) 27.7 20.0-40.0 [facility] H[id number] 07:51:00 Test Item Value Reference Range Interpretation Comments Basophils # (test code 0.1 See_Comment [Aut omated message] The = Basophils #) system which generated this result tra nsmitted reference range : <=0.2. The reference r ozzy was not used to int erpret this result as normal/abnormal . [facility] AND [id number] 07:51:00 Test Item Value Reference Range Interpretation Comments UA Urobilinogen (test code = UA 1.0 0.1-1.0 Urobilinogen) [facility] AND [id number] 07:51:00 Test Item Value Reference Range Interpretation Comments UA Turbidity (test code Cloudy *ABN*(09/04/14 = UA Turbidity) 1:51 AM) [facility] AND [id number] 07:51:00 Test Item Value Reference Range Interpretation Comments UA Color (test code = Red *ABN*(09/04/14 1:51 UA Color) AM) [facility] AND [id number] 07:51:00 Test Item Value Reference Range Interpretation Comments UA Ketones (test code Negative *NA*(09/04/14 = UA Ketones) 1:51 AM) [facility] AND [id number] 07:51:00 Test Item Value Reference Range Interpretation Comments UA Glucose (test code Negative (09/04/14 1:51 = UA Glucose) AM) [facility] AND [id number] 07:51:00 Test Item Value Reference Range Interpretation Comments UA Protein (test code = Trace *ABN*(09/04/14 UA Protein) 1:51 AM) [facility] AND [id number] 07:51:00 Test Item Value Reference Range Interpretation Comments UA pH (test code = UA pH) 8.0 1 5.0-8.0 [facility] AND [id number] 07:51:00 Test Item Value Reference Range Interpretation Comments UA Spec Grav (test code = UA Spec 1.015 1 Grav) [facility] AND [id number] 07:51:00 Test Item Value Reference Range Interpretation Comments UA Bili (test code = Negative *NA*(09/04/14 UA Bili) 1:51 AM) [facility] AND [id number] 07:51:00 Test Item Value Reference Range Interpretation Comments UA Blood (test code = Large *ABN*(09/04/14 UA Blood) 1:51 AM) [facility] AND [id number] 07:51:00 Test Item Value Reference Range Interpretation Comments UA Leuk Est (test Negative (09/04/14 1:51 code = UA Leuk Est) AM) [facility] AND [id number] 07:51:00 Test Item Value Reference Range Interpretation Comments UA Nitrite (test code Negative (09/04/14 1:51 = UA Nitrite) AM) [facility] AND [id number] 07:51:00 Test Item Value Reference Range Interpretation Comments UA Amorph Joselin (test code = UA Few /HPF Amorph Joselin) [facility] AND [id number] 07:51:00 Test Item Value Reference Range Interpretation Comments UA RBC (test code 51-100 /HPF See_Comment [Automate d message] The = UA RBC) system which ge nerated this result tra nsmitted reference range : <=2. The reference r ozzy was not used to int erpret this result as normal/abnormal . [facility] AND [id number] 07:51:00 Test Item Value Reference Range Interpretation Comments UA WBC (test code = UA WBC) 6-10 /HPF [facility] AND [id number] 07:51:00 Test Item Value Reference Range Interpretation Comments UA Bacteria (test code = UA Few /HPF Bacteria) [facility] AND [id number] 07:51:00 Test Item Value Reference Range Interpretation Comments UA Sq Epi (test code = UA Sq Occasional /LPF Epi) [facility] [employer] [id number] 07:51:00 Test Item Value Reference Range Interpretation Comments ABO/Rh (test code = ABO/Rh) A POS [facility] [employer] [facility] [id number] 07:51:00 Test Item Value Reference Range Interpretation Comments Antibody Scrn (test Negative (09/04/14 1:51 code = Antibody Scrn) AM) [facility] [id number] 07:51:00 Test Item Value Reference Range Interpretation Comments Albumin Lvl (test code = Albumin Lvl) 3.4 3.5-5.0 [facility] [employer] [id number] 07:51:00 Test Item Value Reference Range Interpretation Comments Alk Phos (test code = Alk Phos) 64 39-136 [facility] [id number] 07:51:00 Test Item Value Reference Range Interpretation Comments ALT (test code = ALT) 18 See_Comment [Auto mated message] The system which ge nerated this result transmit gaye reference range : <=65. The reference range was not used to interpr et this result as satish l/abnormal. [facility] [employer] [id number] 07:51:00 Test Item Value Reference Range Interpretation Comments AST (test code = AST) 12 See_Comment [Auto mated message] The system which ge nerated this result transmit gaye reference range : <=37. The reference range was not used to interpr et this result as satish l/abnormal. [facility] [employer] [id number] 07:51:00 Test Item Value Reference Range Interpretation Comments eGFR (test code = eGFR) 93 [facility] [employer] [id number] 07:51:00 Test Item Value Reference Range Interpretation Comments Bili Total (test code = Bili Total) 0.3 0.2-1.3 [facility] [employer] [id number] 07:51:00 Test Item Value Reference Range Interpretation Comments Chloride Lvl (test code = Chloride Lvl) 108 95-109 [facility] [employer] [id number] 07:51:00 Test Item Value Reference Range Interpretation Comments Sodium Lvl (test code = Sodium Lvl) 138 135-145 [facility] [employer] [id number] 07:51:00 Test Item Value Reference Range Interpretation Comments Potassium Lvl (test code = Potassium 3.9 3.5-5.1 Lvl) [facility] [employer] [id number] 07:51:00 Test Item Value Reference Range Interpretation Comments CO2 (test code = CO2) 22 24-32 [facility] [id number] 07:51:00 Test Item Value Reference Range Interpretation Comments Calcium Lvl (test code = Calcium Lvl) 8.8 8.5-10.5 [facility] [employer] [id number] 07:51:00 Test Item Value Reference Range Interpretation Comments Glucose Lvl (test code = Glucose Lvl) 98 70-99 [facility] [employer] [id number] 07:51:00 Test Item Value Reference Range Interpretation Comments Total Protein (test code = Total 7.3 6.4-8.4 Protein) [facility] [employer] [id number] 07:51:00 Test Item Value Reference Range Interpretation Comments BUN (test code = BUN) 12 - [facility] [id number] 07:51:00 Test Item Value Reference Range Interpretation Comments Creatinine Lvl (test code = Creatinine 0.8 0.5-1.4 Lvl) [facility] [employer] [id number] 07:51:00 Test Item Value Reference Range Interpretation Comments AGAP (test code = AGAP) 11.9 10.0-20.0 [facility] [employer] [id number] 07:51:00 Test Item Value Reference Range Interpretation Comments B/C Ratio (test code = B/C Ratio) 15 - [facility] [employer] [id number] 07:51:00 Test Item Value Reference Range Interpretation Comments ABO/Rh (test code = ABO/Rh) A POS [employer] [id number] 07:51:00 Test Item Value Reference Range Interpretation Comments Antibody Scrn (test Negative (09/04/14 1:51 code = Antibody Scrn) AM) [facility] [employer] [id number] 07:51:00 Test Item Value Reference Range Interpretation Comments Albumin Lvl (test code = Albumin Lvl) 3.4 3.5-5.0 [facility]2015-01-23 07:51:00 Test Item Value Reference Range Interpretation Comments Alk Phos (test code = Alk Phos) 64 39-136 [facility]2015-01-23 07:51:00 Test Item Value Reference Range Interpretation Comments ALT (test code = ALT) 18 <=65 [facility]2015-01-23 07:51:00 Test Item Value Reference Range Interpretation Comments AST (test code = AST) 12 <=37 [facility]2015-01-23 07:51:00 Test Item Value Reference Range Interpretation Comments eGFR (test code = eGFR) 93 [facility]2015-01-23 07:51:00 Test Item Value Reference Range Interpretation Comments Bili Total (test code = Bili Total) 0.3 0.2-1.3 [facility]2015-01-23 07:51:00 Test Item Value Reference Range Interpretation Comments Chloride Lvl (test code = Chloride Lvl) 108 95-109 [facility]2015-01-23 07:51:00 Test Item Value Reference Range Interpretation Comments Sodium Lvl (test code = Sodium Lvl) 138 135-145 [facility]2015-01-23 07:51:00 Test Item Value Reference Range Interpretation Comments Potassium Lvl (test code = Potassium 3.9 3.5-5.1 Lvl) [facility]2015-01-23 07:51:00 Test Item Value Reference Range Interpretation Comments CO2 (test code = CO2) 22 24-32 [facility]2015-01-23 07:51:00 Test Item Value Reference Range Interpretation Comments Calcium Lvl (test code = Calcium Lvl) 8.8 8.5-10.5 [facility]2015-01-23 07:51:00 Test Item Value Reference Range Interpretation Comments Glucose Lvl (test code = Glucose Lvl) 98 70-99 [facility]2015-01-23 07:51:00 Test Item Value Reference Range Interpretation Comments Total Protein (test code = Total 7.3 6.4-8.4 Protein) [facility]2015-01-23 07:51:00 Test Item Value Reference Range Interpretation Comments BUN (test code = BUN) 12 7-22 [facility]2015-01-23 07:51:00 Test Item Value Reference Range Interpretation Comments Creatinine Lvl (test code = Creatinine 0.8 0.5-1.4 Lvl) [facility]2015-01-23 07:51:00 Test Item Value Reference Range Interpretation Comments AGAP (test code = AGAP) 11.9 10.0-20.0 [facility]2015-01-23 07:51:00 Test Item Value Reference Range Interpretation Comments B/C Ratio (test code = B/C Ratio) 15 6-25 [facility]2015-01-23 07:51:00 Test Item Value Reference Range Interpretation Comments Globulin (test code = Globulin) 3.9 2.0-4.0 [facility]2015-01-23 07:51:00 Test Item Value Reference Range Interpretation Comments A/G Ratio (test code = A/G Ratio) 0.9 0.7-1.6 [id number] 07:51:00 Test Item Value Reference Range Interpretation Comments hCG Tot (test code = hCG Tot) no gt [id number] 07:51:00 Test Item Value Reference Range Interpretation Comments MCHC (test code = MCHC) 33.8 32.0-36.0 [facility] H[id number] 07:51:00 Test Item Value Reference Range Interpretation Comments MCH (test code = MCH) 30.3 pg 27.0-31.0 [facility] [id number] 07:51:00 Test Item Value Reference Range Interpretation Comments RDW (test code = RDW) 13.0 11.5-14.5 [facility] Ho[id number] 07:51:00 Test Item Value Reference Range Interpretation Comments MPV (test code = MPV) 8.4 7.4-10.4 [facility] Hos[id number] 07:51:00 Test Item Value Reference Range Interpretation Comments Platelet (test code = Platelet) 356 133-450 [facility] [id number] 07:51:00 Test Item Value Reference Range Interpretation Comments RBC (test code = RBC) 4.45 4.20-5.40 [facility] Hos[id number] 07:51:00 Test Item Value Reference Range Interpretation Comments WBC (test code = WBC) 12.9 3.7-10.4 [facility] Hos[id number] 07:51:00 Test Item Value Reference Range Interpretation Comments Hgb (test code = Hgb) 13.5 12.0-16.0 [facility] Ho[id number] 07:51:00 Test Item Value Reference Range Interpretation Comments MCV (test code = MCV) 89.7 80.0-98.0 [facility] Hospit[id number] 07:51:00 Test Item Value Reference Range Interpretation Comments Hct (test code = Hct) 39.9 36.0-48.0 [facility] H[id number] 07:51:00 Test Item Value Reference Range Interpretation Comments Eosinophils # (test code = Eosinophils 0.3 <=0.5 #) [facility] HospitalQorzhigXKHZBAWZKK1284-14-47 07:51:00 Test Item Value Reference Range Interpretation Comments Lymphocytes # (test code = Lymphocytes 3.6 1.0-5.5 #) [facility] HospitalIotdivzYANMMTAOPQ9998-30-20 07:51:00 Test Item Value Reference Range Interpretation Comments Monocytes # (test code = Monocytes #) 0.7 <=0.8 [facility] HospitalEdqrfdjLTLJHAFOLN9010-36-10 07:51:00 Test Item Value Reference Range Interpretation Comments Segs (test code = Segs) 63.9 45.0-75.0 [facility] HospitalIguctlrFPVNYCWYWA1712-53-02 07:51:00 Test Item Value Reference Range Interpretation Comments Segs-Bands # (test code = Segs-Bands #) 8.2 1.5-8.1 [facility] H[id number] 07:51:00 Test Item Value Reference Range Interpretation Comments Basophils (test code = Basophils) 0.7 <=1.0 [facility] HospitalUcbuzprPHCYDDHZNT8652-75-20 07:51:00 Test Item Value Reference Range Interpretation Comments Monocytes (test code = Monocytes) 5.4 2.0-12.0 [facility] HospitalOhislriOMOJJGHWZJ9238-64-41 07:51:00 Test Item Value Reference Range Interpretation Comments Eosinophils (test code = Eosinophils) 2.3 <=4.0 [facility] Hos[id number] 07:51:00 Test Item Value Reference Range Interpretation Comments Lymphocytes (test code = Lymphocytes) 27.7 20.0-40.0 [facility]YYLPZJYVSE0285-05-80 07:51:00 Test Item Value Reference Range Interpretation Comments Basophils # (test code = Basophils #) 0.1 <=0.2 [facility] [id number] 07:51:00 Test Item Value Reference Range Interpretation Comments UA Urobilinogen (test code = UA 1.0 0.1-1.0 Urobilinogen) [facility] AND [id number] 07:51:00 Test Item Value Reference Range Interpretation Comments UA Turbidity (test code Cloudy *ABN*(09/04/14 = UA Turbidity) 1:51 AM) [facility] AND [id number] 07:51:00 Test Item Value Reference Range Interpretation Comments UA Color (test code = Red *ABN*(09/04/14 1:51 UA Color) AM) [facility] AND [id number] 07:51:00 Test Item Value Reference Range Interpretation Comments UA Ketones (test code Negative *NA*(09/04/14 = UA Ketones) 1:51 AM) [facility] AND [id number] 07:51:00 Test Item Value Reference Range Interpretation Comments UA Glucose (test code Negative (09/04/14 1:51 = UA Glucose) AM) [facility] AND [id number] 07:51:00 Test Item Value Reference Range Interpretation Comments UA Protein (test code = Trace *ABN*(09/04/14 UA Protein) 1:51 AM) [facility] AND [id number] 07:51:00 Test Item Value Reference Range Interpretation Comments UA pH (test code = UA pH) 8.0 1 5.0-8.0 [facility] [id number] 07:51:00 Test Item Value Reference Range Interpretation Comments UA Spec Grav (test code = UA Spec 1.015 1 Grav) [facility] [id number] 07:51:00 Test Item Value Reference Range Interpretation Comments UA Bili (test code = Negative *NA*(09/04/14 UA Bili) 1:51 AM) [facility] AND [id number] 07:51:00 Test Item Value Reference Range Interpretation Comments UA Blood (test code = Large *ABN*(09/04/14 UA Blood) 1:51 AM) [facility] AND [id number] 07:51:00 Test Item Value Reference Range Interpretation Comments UA Leuk Est (test Negative (09/04/14 1:51 code = UA Leuk Est) AM) [facility] AND [id number] 07:51:00 Test Item Value Reference Range Interpretation Comments UA Nitrite (test code Negative (09/04/14 1:51 = UA Nitrite) AM) [facility] AND [id number] 07:51:00 Test Item Value Reference Range Interpretation Comments UA Amorph Joselin (test code = UA Few /HPF Amorph Joselin) [facility] AND [id number] 07:51:00 Test Item Value Reference Range Interpretation Comments UA RBC (test code = UA RBC) 51-100 /HPF <=2 [facility] AND [id number] 07:51:00 Test Item Value Reference Range Interpretation Comments UA WBC (test code = UA WBC) 6-10 /HPF [facility] AND [id number] 07:51:00 Test Item Value Reference Range Interpretation Comments UA Bacteria (test code = UA Few /HPF Bacteria) [facility] AND [id number] 07:51:00 Test Item Value Reference Range Interpretation Comments UA Sq Epi (test code = UA Sq Occasional /LPF Epi) [facility]2015-01-12 19:24:00 Test Item Value Reference Range Interpretation Comments Lipase Lvl (test code = Lipase Lvl) 104 73-393 [facility]2015-01-12 19:24:00 Test Item Value Reference Range Interpretation Comments eGFR (test code = eGFR) 109 [facility]2015-01-12 19:24:00 Test Item Value Reference Range Interpretation Comments Bili Total (test code = Bili Total) 0.6 0.2-1.3 [facility]2015-01-12 19:24:00 Test Item Value Reference Range Interpretation Comments Alk Phos (test code = Alk Phos) 72 39-136 [facility]2015-01-12 19:24:00 Test Item Value Reference Range Interpretation Comments Calcium Lvl (test code = Calcium Lvl) 8.8 8.5-10.5 [place] [id number] 19:24:00 Test Item Value Reference Range Interpretation Comments CO2 (test code = CO2) 28 24-32 [facility]2015-01-12 19:24:00 Test Item Value Reference Range Interpretation Comments Chloride Lvl (test code = Chloride Lvl) 107 95-109 [facility]2015-01-12 19:24:00 Test Item Value Reference Range Interpretation Comments Potassium Lvl (test code = Potassium 3.9 3.5-5.1 Lvl) [facility]2015-01-12 19:24:00 Test Item Value Reference Range Interpretation Comments Glucose Lvl (test code = Glucose Lvl) 90 70-99 [facility]2015-01-12 19:24:00 Test Item Value Reference Range Interpretation Comments Sodium Lvl (test code = Sodium Lvl) 138 135-145 [facility]2015-01-12 19:24:00 Test Item Value Reference Range Interpretation Comments BUN (test code = BUN) 7 7-22 [facility]2015-01-12 19:24:00 Test Item Value Reference Range Interpretation Comments Creatinine Lvl (test code = Creatinine 0.7 0.5-1.4 Lvl) [facility]2015-01-12 19:24:00 Test Item Value Reference Range Interpretation Comments ALT (test code = ALT) 23 See_Comment [Auto mated message] The system which ge nerated this result transmit gaye reference range : <=65. The reference range was not used to interpr et this result as satish l/abnormal. [facility]2015-01-12 19:24:00 Test Item Value Reference Range Interpretation Comments AST (test code = AST) 12 See_Comment [Auto mated message] The system which ge nerated this result transmit gaye reference range : <=37. The reference range was not used to interpr et this result as satish l/abnormal. [facility]2015-01-12 19:24:00 Test Item Value Reference Range Interpretation Comments Albumin Lvl (test code = Albumin Lvl) 3.8 3.5-5.0 [facility]2015-01-12 19:24:00 Test Item Value Reference Range Interpretation Comments Total Protein (test code = Total 8.0 6.4-8.4 Protein) [facility]2015-01-12 19:24:00 Test Item Value Reference Range Interpretation Comments A/G Ratio (test code = A/G Ratio) 0.9 0.7-1.6 [facility]2015-01-12 19:24:00 Test Item Value Reference Range Interpretation Comments AGAP (test code = AGAP) 6.9 10.0-20.0 [facility]2015-01-12 19:24:00 Test Item Value Reference Range Interpretation Comments B/C Ratio (test code = B/C Ratio) 10 6-25 [facility]2015-01-12 19:24:00 Test Item Value Reference Range Interpretation Comments Globulin (test code = Globulin) 4.2 2.0-4.0 [place] [id number] 19:24:00 Test Item Value Reference Range Interpretation Comments S Preg (test code = S Negative *NA*(08/24/14 Preg) 1:24 PM) [facility]S1818[facility]-71 19:24:00 Test Item Value Reference Range Interpretation Comments WBC (test code = WBC) 11.3 3.7-10.4 [id number] 19:24:00 Test Item Value Reference Range Interpretation Comments RBC (test code = RBC) 4.75 4.20-5.40 [facility] HospitalYetmlzdUQSXBDQBRI4639-34-54 19:24:00 Test Item Value Reference Range Interpretation Comments Platelet (test code = Platelet) 402 133-450 [facility] Ho[id number] 19:24:00 Test Item Value Reference Range Interpretation Comments MCV (test code = MCV) 89.9 80.0-98.0 [facility] HospitalJekvcktARZPNKUKUJ2847-25-53 19:24:00 Test Item Value Reference Range Interpretation Comments Hct (test code = Hct) 42.7 36.0-48.0 [facility] HospitalTgaqfgwMTAYEFAISP8692-05-60 19:24:00 Test Item Value Reference Range Interpretation Comments Hgb (test code = Hgb) 14.5 12.0-16.0 [facility] HospitalThidbypDVUNVASTKB1757-39-28 19:24:00 Test Item Value Reference Range Interpretation Comments RDW (test code = RDW) 13.5 11.5-14.5 [facility] HospitalVypjsajAGWLBIQJET7714-44-61 19:24:00 Test Item Value Reference Range Interpretation Comments MCHC (test code = MCHC) 34.0 32.0-36.0 [facility] HospitalLbsmsedLGBAZWAYEU3409-09-75 19:24:00 Test Item Value Reference Range Interpretation Comments MCH (test code = MCH) 30.6 pg 27.0-31.0 [facility] HospitalSefoakuEXSXJMCYUN4747-10-73 19:24:00 Test Item Value Reference Range Interpretation Comments MPV (test code = MPV) 8.1 7.4-10.4 [facility] HospitalGvmfkdxHTNZUVIGTA5166-13-56 19:24:00 Test Item Value Reference Range Interpretation Comments Stomatocyte (test code = Stomatocyte) Slight [facility] HospitalMqckdjsRJLTDZSBUF2218-00-04 19:24:00 Test Item Value Reference Range Interpretation Comments Basophils # (test code 0.1 See_Comment [Aut omated message] The = Basophils #) system which generated this result tra nsmitted reference range : <=0.2. The reference r ozzy was not used to int erpret this result as normal/abnormal . [facility] HospitalUskwckbBQFTIDHEYY6591-00-84 19:24:00 Test Item Value Reference Range Interpretation Comments Eosinophils # (test code 0.2 See_Comment [A utomated message] The = Eosinophils #) system whic h generated this result tra nsmitted reference range : <=0.5. The reference r ozzy was not used to int erpret this result as normal/abnormal . [facility] HospitalIuzzbriTQGLGKDKGA8708-45-94 19:24:00 Test Item Value Reference Range Interpretation Comments Hypochrom (test code = 1+ (08/24/14 1:24 PM) Hypochrom) [facility] HospitalGhydcorYQSBVXZWKX8750-81-07 19:24:00 Test Item Value Reference Range Interpretation Comments Lymphocytes # (test code = Lymphocytes 2.8 1.0-5.5 #) [facility] HospitalFutpqasPIVSAOIAIB1510-25-12 19:24:00 Test Item Value Reference Range Interpretation Comments Segs-Bands # (test code = Segs-Bands #) 8.1 1.5-8.1 [facility] Hospit[id number] 19:24:00 Test Item Value Reference Range Interpretation Comments Monocytes # (test code 0.2 See_Comment [Aut omated message] The = Monocytes #) system which generated this result tra nsmitted reference range : <=0.8. The reference r ozzy was not used to int erpret this result as normal/abnormal . [facility] HospitalXnhscssMJIBIVGXRI4286-96-82 19:24:00 Test Item Value Reference Range Interpretation Comments Lymphocytes (test code = Lymphocytes) 24.5 20.0-40.0 [facility] HospitalQymkgypCJWCFFEYAL6129-16-32 19:24:00 Test Item Value Reference Range Interpretation Comments Segs (test code = Segs) 71.8 45.0-75.0 [facility] HospitalIfwkvurBIKTWJYJIO9024-01-06 19:24:00 Test Item Value Reference Range Interpretation Comments Basophils (test code = 0.6 See_Comment [Aut omated message] The Basophils) system which ge nerated this result tra nsmitted reference range : <=1.0. The reference r ozzy was not used to int erpret this result as normal/abnormal . [facility] HospitalIaeaatcNGLSIWNROK5042-21-91 19:24:00 Test Item Value Reference Range Interpretation Comments Monocytes (test code = Monocytes) 1.5 2.0-12.0 [facility] HospitalHnqpwabHWIAJPDBFK0632-69-26 19:24:00 Test Item Value Reference Range Interpretation Comments Eosinophils (test code = 1.6 See_Comment [A utomated message] The Eosinophils) system which ge nerated this result tra nsmitted reference range : <=4.0. The reference r ozzy was not used to int erpret this result as normal/abnormal . [facility] HospitalYkvmcxbYSNTCOFDXQ0599-61-98 19:24:00 Test Item Value Reference Range Interpretation Comments Plt Morph (test code = Normal (08/24/14 1:24 Plt Morph) PM) [facility] AND [id number] 19:24:00 Test Item Value Reference Range Interpretation Comments UA Sq Epi (test code = UA Sq Occasional /LPF Epi) [facility] AND [id number] 19:24:00 Test Item Value Reference Range Interpretation Comments UA Bacteria (test code = UA Occasional /HPF Bacteria) [facility] AND [id number] 19:24:00 Test Item Value Reference Range Interpretation Comments UA Mucus (test code = None Seen (08/24/14 UA Mucus) 1:24 PM) [facility] AND [id number] 19:24:00 Test Item Value Reference Range Interpretation Comments UA WBC (test code = UA WBC) 0-2 /HPF [facility] AND [id number] 19:24:00 Test Item Value Reference Range Interpretation Comments UA RBC (test code = 0-2 /HPF See_Comment [Automa gaye message] The UA RBC) system which ge nerated this result tra nsmitted reference range : <=2. The reference range was not used to interpr et this result as satish l/abnormal. [facility] AND [id number] 19:24:00 Test Item Value Reference Range Interpretation Comments UA Leuk Est (test Moderate *ABN*(08/24/14 code = UA Leuk Est) 1:24 PM) [facility] AND [id number] 19:24:00 Test Item Value Reference Range Interpretation Comments UA Nitrite (test code Negative (08/24/14 1:24 = UA Nitrite) PM) [facility] AND [id number] 19:24:00 Test Item Value Reference Range Interpretation Comments UA Urobilinogen (test code = UA 0.2 0.1-1.0 Urobilinogen) [facility] AND [id number] 19:24:00 Test Item Value Reference Range Interpretation Comments UA Ketones (test code Negative *NA*(08/24/14 = UA Ketones) 1:24 PM) [facility] AND [id number] 19:24:00 Test Item Value Reference Range Interpretation Comments UA Blood (test code = Negative (08/24/14 1:24 UA Blood) PM) [facility] AND [id number] 19:24:00 Test Item Value Reference Range Interpretation Comments UA Bili (test code = Negative *NA*(08/24/14 UA Bili) 1:24 PM) [facility] AND [id number] 19:24:00 Test Item Value Reference Range Interpretation Comments UA Color (test code = Yellow *NA*(08/24/14 UA Color) 1:24 PM) [facility] AND [id number] 19:24:00 Test Item Value Reference Range Interpretation Comments UA Glucose (test code Negative (08/24/14 1:24 = UA Glucose) PM) [facility] AND [id number] 19:24:00 Test Item Value Reference Range Interpretation Comments UA Protein (test code Negative (08/24/14 1:24 = UA Protein) PM) [facility] AND [id number] 19:24:00 Test Item Value Reference Range Interpretation Comments UA pH (test code = UA pH) 6.0 1 5.0-8.0 [facility] AND [id number] 19:24:00 Test Item Value Reference Range Interpretation Comments UA Spec Grav (test code *NA*(08/24/14 1:24 PM) = UA Spec Grav) [facility] AND [id number] 19:24:00 Test Item Value Reference Range Interpretation Comments UA Turbidity (test code = Clear (08/24/14 1:24 UA Turbidity) PM) [facility]2015-01-12 19:24:00 Test Item Value Reference Range Interpretation Comments Lipase Lvl (test code = Lipase Lvl) 104 73-393 [facility]2015-01-12 19:24:00 Test Item Value Reference Range Interpretation Comments eGFR (test code = eGFR) 109 [facility]2015-01-12 19:24:00 Test Item Value Reference Range Interpretation Comments Bili Total (test code = Bili Total) 0.6 0.2-1.3 [facility]2015-01-12 19:24:00 Test Item Value Reference Range Interpretation Comments Alk Phos (test code = Alk Phos) 72 39-136 [facility]2015-01-12 19:24:00 Test Item Value Reference Range Interpretation Comments Calcium Lvl (test code = Calcium Lvl) 8.8 8.5-10.5 [facility]2015-01-12 19:24:00 Test Item Value Reference Range Interpretation Comments CO2 (test code = CO2) 28 24-32 [facility]2015-01-12 19:24:00 Test Item Value Reference Range Interpretation Comments Chloride Lvl (test code = Chloride Lvl) 107 95-109 [facility]2015-01-12 19:24:00 Test Item Value Reference Range Interpretation Comments Potassium Lvl (test code = Potassium 3.9 3.5-5.1 Lvl) [facility]2015-01-12 19:24:00 Test Item Value Reference Range Interpretation Comments Glucose Lvl (test code = Glucose Lvl) 90 70-99 [facility]2015-01-12 19:24:00 Test Item Value Reference Range Interpretation Comments Sodium Lvl (test code = Sodium Lvl) 138 135-145 [facility]2015-01-12 19:24:00 Test Item Value Reference Range Interpretation Comments BUN (test code = BUN) 7 7-22 [place] [id number] 19:24:00 Test Item Value Reference Range Interpretation Comments Creatinine Lvl (test code = Creatinine 0.7 0.5-1.4 Lvl) [place] [id number] 19:24:00 Test Item Value Reference Range Interpretation Comments ALT (test code = ALT) 23 See_Comment [Auto mated message] The system which ge nerated this result transmit gaye reference range : <=65. The reference range was not used to interpr et this result as satish l/abnormal. [facility]2015-01-12 19:24:00 Test Item Value Reference Range Interpretation Comments AST (test code = AST) 12 See_Comment [Auto mated message] The system which ge nerated this result transmit gaye reference range : <=37. The reference range was not used to interpr et this result as satish l/abnormal. [facility]2015-01-12 19:24:00 Test Item Value Reference Range Interpretation Comments Albumin Lvl (test code = Albumin Lvl) 3.8 3.5-5.0 [facility]2015-01-12 19:24:00 Test Item Value Reference Range Interpretation Comments Total Protein (test code = Total 8.0 6.4-8.4 Protein) [place] [id number] 19:24:00 Test Item Value Reference Range Interpretation Comments A/G Ratio (test code = A/G Ratio) 0.9 0.7-1.6 [facility]2015-01-12 19:24:00 Test Item Value Reference Range Interpretation Comments AGAP (test code = AGAP) 6.9 10.0-20.0 [place] [id number] 19:24:00 Test Item Value Reference Range Interpretation Comments B/C Ratio (test code = B/C Ratio) 10 6-25 [facility] [id number] 19:24:00 Test Item Value Reference Range Interpretation Comments Globulin (test code = Globulin) 4.2 2.0-4.0 [facility]qxxcuAKEODJYYKQCFE9325-33-31 19:24:00 Test Item Value Reference Range Interpretation Comments S Preg (test code = S Negative *NA*(08/24/14 Preg) 1:24 PM) [facility]YazwodzNBEDVNEFCK6480-46-70 19:24:00 Test Item Value Reference Range Interpretation Comments WBC (test code = WBC) 11.3 3.7-10.4 [facility] Hospit[id number] 19:24:00 Test Item Value Reference Range Interpretation Comments RBC (test code = RBC) 4.75 4.20-5.40 [facility] HospitalZfbusbyJXPPNSLWIR0620-85-50 19:24:00 Test Item Value Reference Range Interpretation Comments Platelet (test code = Platelet) 402 133-450 [facility] HospitalBnjxkrhYVBWVYERWW3905-49-90 19:24:00 Test Item Value Reference Range Interpretation Comments MCV (test code = MCV) 89.9 80.0-98.0 [facility] Ho[id number] 19:24:00 Test Item Value Reference Range Interpretation Comments Hct (test code = Hct) 42.7 36.0-48.0 [facility] HospitalXhdrddoRMMQBVIBAK7101-00-03 19:24:00 Test Item Value Reference Range Interpretation Comments Hgb (test code = Hgb) 14.5 12.0-16.0 [facility] HospitalXvvbllqBKAKQDHZWA1358-98-61 19:24:00 Test Item Value Reference Range Interpretation Comments RDW (test code = RDW) 13.5 11.5-14.5 [facility] HospitalSvmmmchAFMTVNAWAJ3305-43-20 19:24:00 Test Item Value Reference Range Interpretation Comments MCHC (test code = MCHC) 34.0 32.0-36.0 [facility] Hos[id number] 19:24:00 Test Item Value Reference Range Interpretation Comments MCH (test code = MCH) 30.6 pg 27.0-31.0 [facility] HospitalHuufuldZMORXAVQJI5511-37-52 19:24:00 Test Item Value Reference Range Interpretation Comments MPV (test code = MPV) 8.1 7.4-10.4 [facility] HospitalSwuvdutUJOXSSXGJS5438-33-86 19:24:00 Test Item Value Reference Range Interpretation Comments Stomatocyte (test code = Stomatocyte) Slight [facility] Hos[id number] 19:24:00 Test Item Value Reference Range Interpretation Comments Basophils # (test code 0.1 See_Comment [Aut omated message] The = Basophils #) system which generated this result tra nsmitted reference range : <=0.2. The reference r ozzy was not used to int erpret this result as normal/abnormal . [facility] HospitalMycihfsOQIVQTPIMX6438-51-23 19:24:00 Test Item Value Reference Range Interpretation Comments Eosinophils # (test code 0.2 See_Comment [A utomated message] The = Eosinophils #) system whic h generated this result tra nsmitted reference range : <=0.5. The reference r ozzy was not used to int erpret this result as normal/abnormal . [facility] Ho[id number] 19:24:00 Test Item Value Reference Range Interpretation Comments Hypochrom (test code = 1+ (08/24/14 1:24 PM) Hypochrom) [facility] Hospit[id number] 19:24:00 Test Item Value Reference Range Interpretation Comments Lymphocytes # (test code = Lymphocytes 2.8 1.0-5.5 #) [facility] Hospit[id number] 19:24:00 Test Item Value Reference Range Interpretation Comments Segs-Bands # (test code = Segs-Bands #) 8.1 1.5-8.1 [facility] Ho[id number] 19:24:00 Test Item Value Reference Range Interpretation Comments Monocytes # (test code 0.2 See_Comment [Aut omated message] The = Monocytes #) system which generated this result tra nsmitted reference range : <=0.8. The reference r ozzy was not used to int erpret this result as normal/abnormal . [facility] HospitalUpzaovdADZPFBIQKC4627-71-95 19:24:00 Test Item Value Reference Range Interpretation Comments Lymphocytes (test code = Lymphocytes) 24.5 20.0-40.0 [facility] HospitalTacriieIXYACLEWLC9948-43-89 19:24:00 Test Item Value Reference Range Interpretation Comments Segs (test code = Segs) 71.8 45.0-75.0 [facility] HospitalNaqzfwlPUNQQWPDPC8956-26-55 19:24:00 Test Item Value Reference Range Interpretation Comments Basophils (test code = 0.6 See_Comment [Aut omated message] The Basophils) system which ge nerated this result tra nsmitted reference range : <=1.0. The reference r ozzy was not used to int erpret this result as normal/abnormal . [facility] HospitalWheckeoFRQSGZWUWP0615-76-73 19:24:00 Test Item Value Reference Range Interpretation Comments Monocytes (test code = Monocytes) 1.5 2.0-12.0 [facility] Hospit[id number] 19:24:00 Test Item Value Reference Range Interpretation Comments Eosinophils (test code = 1.6 See_Comment [A utomated message] The Eosinophils) system which ge nerated this result tra nsmitted reference range : <=4.0. The reference r ozzy was not used to int erpret this result as normal/abnormal . [facility] H[id number] 19:24:00 Test Item Value Reference Range Interpretation Comments Plt Morph (test code = Normal (08/24/14 1:24 Plt Morph) PM) [facility] AND [id number] 19:24:00 Test Item Value Reference Range Interpretation Comments UA Sq Epi (test code = UA Sq Occasional /LPF Epi) [facility] AND [id number] 19:24:00 Test Item Value Reference Range Interpretation Comments UA Bacteria (test code = UA Occasional /HPF Bacteria) [facility] AND [id number] 19:24:00 Test Item Value Reference Range Interpretation Comments UA Mucus (test code = None Seen (08/24/14 UA Mucus) 1:24 PM) [facility] AND [id number] 19:24:00 Test Item Value Reference Range Interpretation Comments UA WBC (test code = UA WBC) 0-2 /HPF [facility] [id number] 19:24:00 Test Item Value Reference Range Interpretation Comments UA RBC (test code = 0-2 /HPF See_Comment [Automa gaye message] The UA RBC) system which ge nerated this result tra nsmitted reference range : <=2. The reference range was not used to interpr et this result as satish l/abnormal. [facility] AND [id number] 19:24:00 Test Item Value Reference Range Interpretation Comments UA Leuk Est (test Moderate *ABN*(08/24/14 code = UA Leuk Est) 1:24 PM) [facility] AND [id number] 19:24:00 Test Item Value Reference Range Interpretation Comments UA Nitrite (test code Negative (08/24/14 1:24 = UA Nitrite) PM) [facility] AND [id number] 19:24:00 Test Item Value Reference Range Interpretation Comments UA Urobilinogen (test code = UA 0.2 0.1-1.0 Urobilinogen) [facility] AND [id number] 19:24:00 Test Item Value Reference Range Interpretation Comments UA Ketones (test code Negative *NA*(08/24/14 = UA Ketones) 1:24 PM) [facility] AND [id number] 19:24:00 Test Item Value Reference Range Interpretation Comments UA Blood (test code = Negative (08/24/14 1:24 UA Blood) PM) [facility] AND [id number] 19:24:00 Test Item Value Reference Range Interpretation Comments UA Bili (test code = Negative *NA*(08/24/14 UA Bili) 1:24 PM) [facility] AND [id number] 19:24:00 Test Item Value Reference Range Interpretation Comments UA Color (test code = Yellow *NA*(08/24/14 UA Color) 1:24 PM) [facility] AND [id number] 19:24:00 Test Item Value Reference Range Interpretation Comments UA Glucose (test code Negative (08/24/14 1:24 = UA Glucose) PM) [facility] AND [id number] 19:24:00 Test Item Value Reference Range Interpretation Comments UA Protein (test code Negative (08/24/14 1:24 = UA Protein) PM) [facility] AND [id number] 19:24:00 Test Item Value Reference Range Interpretation Comments UA pH (test code = UA pH) 6.0 1 5.0-8.0 [facility] AND [id number] 19:24:00 Test Item Value Reference Range Interpretation Comments UA Spec Grav (test code *NA*(1/12/15 1:24 PM) = UA Spec Grav) [facility] AND [id number] 19:24:00 Test Item Value Reference Range Interpretation Comments UA Turbidity (test code = Clear (08/24/14 1:24 UA Turbidity) PM) [facility]2015-01-12 19:24:00 Test Item Value Reference Range Interpretation Comments Lipase Lvl (test code = Lipase Lvl) 104 73-393 [facility]2015-01-12 19:24:00 Test Item Value Reference Range Interpretation Comments eGFR (test code = eGFR) 109 [facility]2015-01-12 19:24:00 Test Item Value Reference Range Interpretation Comments Bili Total (test code = Bili Total) 0.6 0.2-1.3 [facility]2015-01-12 19:24:00 Test Item Value Reference Range Interpretation Comments Alk Phos (test code = Alk Phos) 72 39-136 [facility]2015-01-12 19:24:00 Test Item Value Reference Range Interpretation Comments Calcium Lvl (test code = Calcium Lvl) 8.8 8.5-10.5 [facility]2015-01-12 19:24:00 Test Item Value Reference Range Interpretation Comments CO2 (test code = CO2) 28 24-32 [facility]2015-01-12 19:24:00 Test Item Value Reference Range Interpretation Comments Chloride Lvl (test code = Chloride Lvl) 107 95-109 [facility]2015-01-12 19:24:00 Test Item Value Reference Range Interpretation Comments Potassium Lvl (test code = Potassium 3.9 3.5-5.1 Lvl) [facility]2015-01-12 19:24:00 Test Item Value Reference Range Interpretation Comments Glucose Lvl (test code = Glucose Lvl) 90 70-99 [facility]2015-01-12 19:24:00 Test Item Value Reference Range Interpretation Comments Sodium Lvl (test code = Sodium Lvl) 138 135-145 [facility]2015-01-12 19:24:00 Test Item Value Reference Range Interpretation Comments BUN (test code = BUN) 7 7-22 [facility]2015-01-12 19:24:00 Test Item Value Reference Range Interpretation Comments Creatinine Lvl (test code = Creatinine 0.7 0.5-1.4 Lvl) [facility]2015-01-12 19:24:00 Test Item Value Reference Range Interpretation Comments ALT (test code = ALT) 23 See_Comment [Auto mated message] The system which ge nerated this result transmit gaye reference range : <=65. The reference range was not used to interpr et this result as satish l/abnormal. [facility]2015-01-12 19:24:00 Test Item Value Reference Range Interpretation Comments AST (test code = AST) 12 See_Comment [Auto mated message] The system which ge nerated this result transmit gaye reference range : <=37. The reference range was not used to interpr et this result as satish l/abnormal. [facility]2015-01-12 19:24:00 Test Item Value Reference Range Interpretation Comments Albumin Lvl (test code = Albumin Lvl) 3.8 3.5-5.0 [facility]2015-01-12 19:24:00 Test Item Value Reference Range Interpretation Comments Total Protein (test code = Total 8.0 6.4-8.4 Protein) [facility]2015-01-12 19:24:00 Test Item Value Reference Range Interpretation Comments A/G Ratio (test code = A/G Ratio) 0.9 0.7-1.6 [facility]2015-01-12 19:24:00 Test Item Value Reference Range Interpretation Comments AGAP (test code = AGAP) 6.9 10.0-20.0 [facility]2015-01-12 19:24:00 Test Item Value Reference Range Interpretation Comments B/C Ratio (test code = B/C Ratio) 10 6-25 [facility]2015-01-12 19:24:00 Test Item Value Reference Range Interpretation Comments Globulin (test code = Globulin) 4.2 2.0-4.0 [id number] 19:24:00 Test Item Value Reference Range Interpretation Comments S Preg (test code = S Negative *NA*(08/24/14 Preg) 1:24 PM) [facility]VAKE7406-96-39 19:24:00 Test Item Value Reference Range Interpretation Comments WBC (test code = WBC) 11.3 3.7-10.4 [facility] HospitalUcqxyyxBODOGXIFEB6900-73-66 19:24:00 Test Item Value Reference Range Interpretation Comments RBC (test code = RBC) 4.75 4.20-5.40 [facility] HospitalUlzxxjoSDMEKBBECM0283-23-60 19:24:00 Test Item Value Reference Range Interpretation Comments Platelet (test code = Platelet) 402 133-450 [facility] HospitalPhrhqqkOIVUDZEVBH8328-18-68 19:24:00 Test Item Value Reference Range Interpretation Comments MCV (test code = MCV) 89.9 80.0-98.0 [facility] HospitalPeuztztREYPJVYJOM3988-65-17 19:24:00 Test Item Value Reference Range Interpretation Comments Hct (test code = Hct) 42.7 36.0-48.0 [facility] HospitalMgvaypeTZWKLDOWLO7269-50-45 19:24:00 Test Item Value Reference Range Interpretation Comments Hgb (test code = Hgb) 14.5 12.0-16.0 [facility] HospitalCevjhoyUOQYWVVQVV9266-62-08 19:24:00 Test Item Value Reference Range Interpretation Comments RDW (test code = RDW) 13.5 11.5-14.5 [facility] HospitalTvgdwfaFWDICRUCOS3950-24-71 19:24:00 Test Item Value Reference Range Interpretation Comments MCHC (test code = MCHC) 34.0 32.0-36.0 [facility] HospitalUehdcqnWMHUPRZYYR9779-04-94 19:24:00 Test Item Value Reference Range Interpretation Comments MCH (test code = MCH) 30.6 pg 27.0-31.0 [facility] HospitalAfyohltIQKEVHVVKF8791-21-47 19:24:00 Test Item Value Reference Range Interpretation Comments MPV (test code = MPV) 8.1 7.4-10.4 [facility] Hospit[id number] 19:24:00 Test Item Value Reference Range Interpretation Comments Stomatocyte (test code = Stomatocyte) Slight [facility] HospitalPcigjwpOASKOXKADV9538-82-12 19:24:00 Test Item Value Reference Range Interpretation Comments Basophils # (test code 0.1 See_Comment [Aut omated message] The = Basophils #) system which generated this result tra nsmitted reference range : <=0.2. The reference r ozzy was not used to int erpret this result as normal/abnormal . [facility] HospitalPemblzkAXRNRNMUVB1079-68-55 19:24:00 Test Item Value Reference Range Interpretation Comments Eosinophils # (test code 0.2 See_Comment [A utomated message] The = Eosinophils #) system ic h generated this result tra nsmitted reference range : <=0.5. The reference r ozzy was not used to int erpret this result as normal/abnormal . [facility] HospitalMgagagxSUBPGUMEBU7082-62-93 19:24:00 Test Item Value Reference Range Interpretation Comments Hypochrom (test code = 1+ (08/24/14 1:24 PM) Hypochrom) [facility] HospitalFwibepqINMMKSZUXC1487-58-32 19:24:00 Test Item Value Reference Range Interpretation Comments Lymphocytes # (test code = Lymphocytes 2.8 1.0-5.5 #) [facility] HospitalXutufluCFLIFUZQPU3345-88-27 19:24:00 Test Item Value Reference Range Interpretation Comments Segs-Bands # (test code = Segs-Bands #) 8.1 1.5-8.1 [facility] Hospit[id number] 19:24:00 Test Item Value Reference Range Interpretation Comments Monocytes # (test code 0.2 See_Comment [Aut omated message] The = Monocytes #) system which generated this result tra nsmitted reference range : <=0.8. The reference r ozzy was not used to int erpret this result as normal/abnormal . [facility] HospitalQcacukkPWNOZFEVMC5218-28-70 19:24:00 Test Item Value Reference Range Interpretation Comments Lymphocytes (test code = Lymphocytes) 24.5 20.0-40.0 [facility] HospitalUmzvrxfWYBRRRKDGK8020-28-17 19:24:00 Test Item Value Reference Range Interpretation Comments Segs (test code = Segs) 71.8 45.0-75.0 [facility] HospitalFghbygnDJPSNHFFFP7834-00-72 19:24:00 Test Item Value Reference Range Interpretation Comments Basophils (test code = 0.6 See_Comment [Aut omated message] The Basophils) system which ge nerated this result tra nsmitted reference range : <=1.0. The reference r ozzy was not used to int erpret this result as normal/abnormal . [facility] HospitalIsomvyiKINHOLSYGF1803-44-61 19:24:00 Test Item Value Reference Range Interpretation Comments Monocytes (test code = Monocytes) 1.5 2.0-12.0 [facility] HospitalKzwfvyyOQIVEMSARY2217-10-45 19:24:00 Test Item Value Reference Range Interpretation Comments Eosinophils (test code = 1.6 See_Comment [A utomated message] The Eosinophils) system which ge nerated this result tra nsmitted reference range : <=4.0. The reference r ozzy was not used to int erpret this result as normal/abnormal . [facility] HospitalElmmusbROFSIDVHLB8154-32-92 19:24:00 Test Item Value Reference Range Interpretation Comments Plt Morph (test code = Normal (08/24/14 1:24 Plt Morph) PM) [facility] AND [id number] 19:24:00 Test Item Value Reference Range Interpretation Comments UA Sq Epi (test code = UA Sq Occasional /LPF Epi) [facility] AND [id number] 19:24:00 Test Item Value Reference Range Interpretation Comments UA Bacteria (test code = UA Occasional /HPF Bacteria) [facility] AND [id number] 19:24:00 Test Item Value Reference Range Interpretation Comments UA Mucus (test code = None Seen (08/24/14 UA Mucus) 1:24 PM) [facility] AND [id number] 19:24:00 Test Item Value Reference Range Interpretation Comments UA WBC (test code = UA WBC) 0-2 /HPF [facility] AND [id number] 19:24:00 Test Item Value Reference Range Interpretation Comments UA RBC (test code = 0-2 /HPF See_Comment [Automa gaye message] The UA RBC) system which ge nerated this result tra nsmitted reference range : <=2. The reference range was not used to interpr et this result as satish l/abnormal. [facility] AND [id number] 19:24:00 Test Item Value Reference Range Interpretation Comments UA Leuk Est (test Moderate *ABN*(08/24/14 code = UA Leuk Est) 1:24 PM) [facility] AND [id number] 19:24:00 Test Item Value Reference Range Interpretation Comments UA Nitrite (test code Negative (08/24/14 1:24 = UA Nitrite) PM) [facility] AND [id number] 19:24:00 Test Item Value Reference Range Interpretation Comments UA Urobilinogen (test code = UA 0.2 0.1-1.0 Urobilinogen) [facility] AND [id number] 19:24:00 Test Item Value Reference Range Interpretation Comments UA Ketones (test code Negative *NA*(08/24/14 = UA Ketones) 1:24 PM) [facility] [id number] 19:24:00 Test Item Value Reference Range Interpretation Comments UA Blood (test code = Negative (08/24/14 1:24 UA Blood) PM) [facility] AND [id number] 19:24:00 Test Item Value Reference Range Interpretation Comments UA Bili (test code = Negative *NA*(08/24/14 UA Bili) 1:24 PM) [facility] AND [id number] 19:24:00 Test Item Value Reference Range Interpretation Comments UA Color (test code = Yellow *NA*(08/24/14 UA Color) 1:24 PM) [facility] AND [id number] 19:24:00 Test Item Value Reference Range Interpretation Comments UA Glucose (test code Negative (08/24/14 1:24 = UA Glucose) PM) [facility] AND [id number] 19:24:00 Test Item Value Reference Range Interpretation Comments UA Protein (test code Negative (08/24/14 1:24 = UA Protein) PM) [facility] AND [id number] 19:24:00 Test Item Value Reference Range Interpretation Comments UA pH (test code = UA pH) 6.0 1 5.0-8.0 [facility] AND [id number] 19:24:00 Test Item Value Reference Range Interpretation Comments UA Spec Grav (test code *NA*(08/24/14 1:24 PM) = UA Spec Grav) [facility] AND [id number] 19:24:00 Test Item Value Reference Range Interpretation Comments UA Turbidity (test code = Clear (08/24/14 1:24 UA Turbidity) PM) [facility] [id number] 19:24:00 Test Item Value Reference Range Interpretation Comments Lipase Lvl (test code = Lipase Lvl) 104 73-393 [facility] [id number] 19:24:00 Test Item Value Reference Range Interpretation Comments eGFR (test code = eGFR) 109 [facility]2015-01-12 19:24:00 Test Item Value Reference Range Interpretation Comments Bili Total (test code = Bili Total) 0.6 0.2-1.3 [facility]2015-01-12 19:24:00 Test Item Value Reference Range Interpretation Comments Alk Phos (test code = Alk Phos) 72 39-136 [facility]2015-01-12 19:24:00 Test Item Value Reference Range Interpretation Comments Calcium Lvl (test code = Calcium Lvl) 8.8 8.5-10.5 [facility]2015-01-12 19:24:00 Test Item Value Reference Range Interpretation Comments CO2 (test code = CO2) 28 24-32 [facility]2015-01-12 19:24:00 Test Item Value Reference Range Interpretation Comments Chloride Lvl (test code = Chloride Lvl) 107 95-109 [facility]2015-01-12 19:24:00 Test Item Value Reference Range Interpretation Comments Potassium Lvl (test code = Potassium 3.9 3.5-5.1 Lvl) [facility]2015-01-12 19:24:00 Test Item Value Reference Range Interpretation Comments Glucose Lvl (test code = Glucose Lvl) 90 70-99 [facility]2015-01-12 19:24:00 Test Item Value Reference Range Interpretation Comments Sodium Lvl (test code = Sodium Lvl) 138 135-145 [facility]2015-01-12 19:24:00 Test Item Value Reference Range Interpretation Comments BUN (test code = BUN) 7 7-22 [facility]2015-01-12 19:24:00 Test Item Value Reference Range Interpretation Comments Creatinine Lvl (test code = Creatinine 0.7 0.5-1.4 Lvl) [facility]2015-01-12 19:24:00 Test Item Value Reference Range Interpretation Comments ALT (test code = ALT) 23 See_Comment [Auto mated message] The system which ge nerated this result transmit gaye reference range : <=65. The reference range was not used to interpr et this result as satish l/abnormal. [facility]2015-01-12 19:24:00 Test Item Value Reference Range Interpretation Comments AST (test code = AST) 12 See_Comment [Auto mated message] The system which ge nerated this result transmit gaye reference range : <=37. The reference range was not used to interpr et this result as satish l/abnormal. [facility]2015-01-12 19:24:00 Test Item Value Reference Range Interpretation Comments Albumin Lvl (test code = Albumin Lvl) 3.8 3.5-5.0 [facility]2015-01-12 19:24:00 Test Item Value Reference Range Interpretation Comments Total Protein (test code = Total 8.0 6.4-8.4 Protein) [facility]2015-01-12 19:24:00 Test Item Value Reference Range Interpretation Comments A/G Ratio (test code = A/G Ratio) 0.9 0.7-1.6 [facility]2015-01-12 19:24:00 Test Item Value Reference Range Interpretation Comments AGAP (test code = AGAP) 6.9 10.0-20.0 [facility]2015-01-12 19:24:00 Test Item Value Reference Range Interpretation Comments B/C Ratio (test code = B/C Ratio) 10 6-25 [facility]2015-01-12 19:24:00 Test Item Value Reference Range Interpretation Comments Globulin (test code = Globulin) 4.2 2.0-4.0 [id number] 19:24:00 Test Item Value Reference Range Interpretation Comments S Preg (test code = S Negative *NA*(08/24/14 Preg) 1:24 PM) [facility]TdwumcjRWVNGNOXSU6502-45-00 19:24:00 Test Item Value Reference Range Interpretation Comments WBC (test code = WBC) 11.3 3.7-10.4 [facility] HospitalHrhtezyVPUGACRLAV6599-06-11 19:24:00 Test Item Value Reference Range Interpretation Comments RBC (test code = RBC) 4.75 4.20-5.40 [id number] 19:24:00 Test Item Value Reference Range Interpretation Comments Platelet (test code = Platelet) 402 133-450 [facility] HospitalUucwwomYBEEUSHSJK5454-89-09 19:24:00 Test Item Value Reference Range Interpretation Comments MCV (test code = MCV) 89.9 80.0-98.0 [facility] HospitalAkmsrmbQEFISTXKAK0992-34-42 19:24:00 Test Item Value Reference Range Interpretation Comments Hct (test code = Hct) 42.7 36.0-48.0 [facility] HospitalLyqtgxlGSNYMITQJN7124-85-14 19:24:00 Test Item Value Reference Range Interpretation Comments Hgb (test code = Hgb) 14.5 12.0-16.0 [facility] HospitalNhznrdvUNCZRAGLMZ4974-69-66 19:24:00 Test Item Value Reference Range Interpretation Comments RDW (test code = RDW) 13.5 11.5-14.5 [facility] HospitalUsxlrmvEITLGIPLYV7881-38-42 19:24:00 Test Item Value Reference Range Interpretation Comments MCHC (test code = MCHC) 34.0 32.0-36.0 [facility] HospitalBvjbmbnVIBZAKYXUL3528-36-25 19:24:00 Test Item Value Reference Range Interpretation Comments MCH (test code = MCH) 30.6 pg 27.0-31.0 [facility] HospitalUsqjesdLBLSGVTDLZ0835-85-70 19:24:00 Test Item Value Reference Range Interpretation Comments MPV (test code = MPV) 8.1 7.4-10.4 [facility] Ho[id number] 19:24:00 Test Item Value Reference Range Interpretation Comments Stomatocyte (test code = Stomatocyte) Slight [facility] HospitalGmcxcjpWCXBHHDVKW0738-76-19 19:24:00 Test Item Value Reference Range Interpretation Comments Basophils # (test code 0.1 See_Comment [Aut omated message] The = Basophils #) system which generated this result tra nsmitted reference range : <=0.2. The reference r ozzy was not used to int erpret this result as normal/abnormal . [facility] HospitalGbeabxjLPTQOYJPPW4649-34-53 19:24:00 Test Item Value Reference Range Interpretation Comments Eosinophils # (test code 0.2 See_Comment [A utomated message] The = Eosinophils #) system whic h generated this result tra nsmitted reference range : <=0.5. The reference r ozzy was not used to int erpret this result as normal/abnormal . [facility] HospitalThuoeygZQJRRNGMTB2901-60-57 19:24:00 Test Item Value Reference Range Interpretation Comments Hypochrom (test code = 1+ (08/24/14 1:24 PM) Hypochrom) [facility] Hospit[id number] 19:24:00 Test Item Value Reference Range Interpretation Comments Lymphocytes # (test code = Lymphocytes 2.8 1.0-5.5 #) [facility] HospitalEnseyecIYIIWABIRY9764-00-03 19:24:00 Test Item Value Reference Range Interpretation Comments Segs-Bands # (test code = Segs-Bands #) 8.1 1.5-8.1 [facility] HospitalAdhmxkfSDEXFIWRFP3903-76-01 19:24:00 Test Item Value Reference Range Interpretation Comments Monocytes # (test code 0.2 See_Comment [Aut omated message] The = Monocytes #) system which generated this result tra nsmitted reference range : <=0.8. The reference r ozzy was not used to int erpret this result as normal/abnormal . [facility] HospitalGxdzbwfBENMLPCLUN1405-37-18 19:24:00 Test Item Value Reference Range Interpretation Comments Lymphocytes (test code = Lymphocytes) 24.5 20.0-40.0 [facility] HospitalJivuetmUPYVKGTJVB3427-33-12 19:24:00 Test Item Value Reference Range Interpretation Comments Segs (test code = Segs) 71.8 45.0-75.0 [facility] HospitalTzjbojzIQMRVUWCLR5076-70-74 19:24:00 Test Item Value Reference Range Interpretation Comments Basophils (test code = 0.6 See_Comment [Aut omated message] The Basophils) system which ge nerated this result tra nsmitted reference range : <=1.0. The reference r ozzy was not used to int erpret this result as normal/abnormal . [facility] HospitalSelgtusVCKUMCRRXC1669-79-84 19:24:00 Test Item Value Reference Range Interpretation Comments Monocytes (test code = Monocytes) 1.5 2.0-12.0 [facility] HospitalZzonkxlWMWACUOLHF1092-16-90 19:24:00 Test Item Value Reference Range Interpretation Comments Eosinophils (test code = 1.6 See_Comment [A utomated message] The Eosinophils) system which ge nerated this result tra nsmitted reference range : <=4.0. The reference r ozzy was not used to int erpret this result as normal/abnormal . [facility] HospitalVsbszrdBNGTKJRVJM6889-28-38 19:24:00 Test Item Value Reference Range Interpretation Comments Plt Morph (test code = Normal (08/24/14 1:24 Plt Morph) PM) [facility] [id number] 19:24:00 Test Item Value Reference Range Interpretation Comments UA Sq Epi (test code = UA Sq Occasional /LPF Epi) [facility] [id number] 19:24:00 Test Item Value Reference Range Interpretation Comments UA Bacteria (test code = UA Occasional /HPF Bacteria) [facility] [id number] 19:24:00 Test Item Value Reference Range Interpretation Comments UA Mucus (test code = None Seen (08/24/14 UA Mucus) 1:24 PM) [facility] AND [id number] 19:24:00 Test Item Value Reference Range Interpretation Comments UA WBC (test code = UA WBC) 0-2 /HPF [facility] [id number] 19:24:00 Test Item Value Reference Range Interpretation Comments UA RBC (test code = 0-2 /HPF See_Comment [Automa gaye message] The UA RBC) system which ge nerated this result tra nsmitted reference range : <=2. The reference range was not used to interpr et this result as saitsh l/abnormal. [facility] AND [id number] 19:24:00 Test Item Value Reference Range Interpretation Comments UA Leuk Est (test Moderate *ABN*(08/24/14 code = UA Leuk Est) 1:24 PM) [facility] AND [id number] 19:24:00 Test Item Value Reference Range Interpretation Comments UA Nitrite (test code Negative (08/24/14 1:24 = UA Nitrite) PM) [facility] AND [id number] 19:24:00 Test Item Value Reference Range Interpretation Comments UA Urobilinogen (test code = UA 0.2 0.1-1.0 Urobilinogen) [facility] AND [id number] 19:24:00 Test Item Value Reference Range Interpretation Comments UA Ketones (test code Negative *NA*(08/24/14 = UA Ketones) 1:24 PM) [facility] [id number] 19:24:00 Test Item Value Reference Range Interpretation Comments UA Blood (test code = Negative (08/24/14 1:24 UA Blood) PM) [facility] AND [id number] 19:24:00 Test Item Value Reference Range Interpretation Comments UA Bili (test code = Negative *NA*(08/24/14 UA Bili) 1:24 PM) [facility] AND [id number] 19:24:00 Test Item Value Reference Range Interpretation Comments UA Color (test code = Yellow *NA*(08/24/14 UA Color) 1:24 PM) [facility] AND [id number] 19:24:00 Test Item Value Reference Range Interpretation Comments UA Glucose (test code Negative (08/24/14 1:24 = UA Glucose) PM) [facility] AND [id number] 19:24:00 Test Item Value Reference Range Interpretation Comments UA Protein (test code Negative (08/24/14 1:24 = UA Protein) PM) [facility] AND [id number] 19:24:00 Test Item Value Reference Range Interpretation Comments UA pH (test code = UA pH) 6.0 1 5.0-8.0 [facility] AND [id number] 19:24:00 Test Item Value Reference Range Interpretation Comments UA Spec Grav (test code *NA*(08/24/14 1:24 PM) = UA Spec Grav) [facility] AND [id number] 19:24:00 Test Item Value Reference Range Interpretation Comments UA Turbidity (test code = Clear (08/24/14 1:24 UA Turbidity) PM) [facility]2015-01-12 19:24:00 Test Item Value Reference Range Interpretation Comments Lipase Lvl (test code = Lipase Lvl) 104 73-393 [facility]2015-01-12 19:24:00 Test Item Value Reference Range Interpretation Comments eGFR (test code = eGFR) 109 [facility]2015-01-12 19:24:00 Test Item Value Reference Range Interpretation Comments Bili Total (test code = Bili Total) 0.6 0.2-1.3 [facility]2015-01-12 19:24:00 Test Item Value Reference Range Interpretation Comments Alk Phos (test code = Alk Phos) 72 39-136 [facility]2015-01-12 19:24:00 Test Item Value Reference Range Interpretation Comments Calcium Lvl (test code = Calcium Lvl) 8.8 8.5-10.5 [facility]2015-01-12 19:24:00 Test Item Value Reference Range Interpretation Comments CO2 (test code = CO2) 28 24-32 [facility]2015-01-12 19:24:00 Test Item Value Reference Range Interpretation Comments Chloride Lvl (test code = Chloride Lvl) 107 95-109 [facility]2015-01-12 19:24:00 Test Item Value Reference Range Interpretation Comments Potassium Lvl (test code = Potassium 3.9 3.5-5.1 Lvl) [facility]2015-01-12 19:24:00 Test Item Value Reference Range Interpretation Comments Glucose Lvl (test code = Glucose Lvl) 90 70-99 [facility]2015-01-12 19:24:00 Test Item Value Reference Range Interpretation Comments Sodium Lvl (test code = Sodium Lvl) 138 135-145 [facility]2015-01-12 19:24:00 Test Item Value Reference Range Interpretation Comments BUN (test code = BUN) 7 7-22 [facility]2015-01-12 19:24:00 Test Item Value Reference Range Interpretation Comments Creatinine Lvl (test code = Creatinine 0.7 0.5-1.4 Lvl) [facility]2015-01-12 19:24:00 Test Item Value Reference Range Interpretation Comments ALT (test code = ALT) 23 See_Comment [Auto mated message] The system which ge nerated this result transmit gaye reference range : <=65. The reference range was not used to interpr et this result as satish l/abnormal. [facility]2015-01-12 19:24:00 Test Item Value Reference Range Interpretation Comments AST (test code = AST) 12 See_Comment [Auto mated message] The system which ge nerated this result transmit gaye reference range : <=37. The reference range was not used to interpr et this result as satish l/abnormal. [facility]2015-01-12 19:24:00 Test Item Value Reference Range Interpretation Comments Albumin Lvl (test code = Albumin Lvl) 3.8 3.5-5.0 [facility]2015-01-12 19:24:00 Test Item Value Reference Range Interpretation Comments Total Protein (test code = Total 8.0 6.4-8.4 Protein) [facility]2015-01-12 19:24:00 Test Item Value Reference Range Interpretation Comments A/G Ratio (test code = A/G Ratio) 0.9 0.7-1.6 [facility]2015-01-12 19:24:00 Test Item Value Reference Range Interpretation Comments AGAP (test code = AGAP) 6.9 10.0-20.0 [facility]2015-01-12 19:24:00 Test Item Value Reference Range Interpretation Comments B/C Ratio (test code = B/C Ratio) 10 6-25 [facility]2015-01-12 19:24:00 Test Item Value Reference Range Interpretation Comments Globulin (test code = Globulin) 4.2 2.0-4.0 [id number] 19:24:00 Test Item Value Reference Range Interpretation Comments S Preg (test code = S Negative *NA*(08/24/14 Preg) 1:24 PM) [facility]VOILCVWT0809[facility]99-60 19:24:00 Test Item Value Reference Range Interpretation Comments WBC (test code = WBC) 11.3 3.7-10.4 [facility] HospitalKgyrbsmIZKIFFBNMX7761-30-36 19:24:00 Test Item Value Reference Range Interpretation Comments RBC (test code = RBC) 4.75 4.20-5.40 [facility] HospitalIamrqwfKELQAVOBPV4184-83-85 19:24:00 Test Item Value Reference Range Interpretation Comments Platelet (test code = Platelet) 402 133-450 [facility] HospitalHuhtqajCPVVEFRSCS4980-15-59 19:24:00 Test Item Value Reference Range Interpretation Comments MCV (test code = MCV) 89.9 80.0-98.0 [facility] HospitalUmnceidONAIHPRRUA8127-86-84 19:24:00 Test Item Value Reference Range Interpretation Comments Hct (test code = Hct) 42.7 36.0-48.0 [facility] HospitalWaemfhyZRIQTZJKJF5917-04-71 19:24:00 Test Item Value Reference Range Interpretation Comments Hgb (test code = Hgb) 14.5 12.0-16.0 [facility] HospitalZupjnncGOPHGXWOOK1236-03-88 19:24:00 Test Item Value Reference Range Interpretation Comments RDW (test code = RDW) 13.5 11.5-14.5 [facility] HospitalUvbjosrZSVHOQRWJU3604-64-14 19:24:00 Test Item Value Reference Range Interpretation Comments MCHC (test code = MCHC) 34.0 32.0-36.0 [facility] HospitalKbyozacAZLPPRTGUI1574-49-23 19:24:00 Test Item Value Reference Range Interpretation Comments MCH (test code = MCH) 30.6 pg 27.0-31.0 [facility] HospitalGypnkxdDXNKMGGCIW1061-84-12 19:24:00 Test Item Value Reference Range Interpretation Comments MPV (test code = MPV) 8.1 7.4-10.4 [facility] HospitalHjeeyfzKXMCXJXYUO6950-74-63 19:24:00 Test Item Value Reference Range Interpretation Comments Stomatocyte (test code = Stomatocyte) Slight [facility] HospitalXwxbjzcWSLKEUQFCY0728-17-96 19:24:00 Test Item Value Reference Range Interpretation Comments Basophils # (test code 0.1 See_Comment [Aut omated message] The = Basophils #) system which generated this result tra nsmitted reference range : <=0.2. The reference r ozzy was not used to int erpret this result as normal/abnormal . [facility] HospitalDoyprghBSSQIKUKUA2772-20-62 19:24:00 Test Item Value Reference Range Interpretation Comments Eosinophils # (test code 0.2 See_Comment [A utomated message] The = Eosinophils #) system whic h generated this result tra nsmitted reference range : <=0.5. The reference r ozzy was not used to int erpret this result as normal/abnormal . [facility] HospitalBbtylblGRHYYONPSB3238-36-08 19:24:00 Test Item Value Reference Range Interpretation Comments Hypochrom (test code = 1+ (08/24/14 1:24 PM) Hypochrom) [facility] HospitalSdwlwdrYAWUJKPOGL5479-23-14 19:24:00 Test Item Value Reference Range Interpretation Comments Lymphocytes # (test code = Lymphocytes 2.8 1.0-5.5 #) [facility] HospitalJahvuomQMNUTEIHQG0659-91-23 19:24:00 Test Item Value Reference Range Interpretation Comments Segs-Bands # (test code = Segs-Bands #) 8.1 1.5-8.1 [facility] HospitalLhldbaxESOQKJXYBG3538-55-00 19:24:00 Test Item Value Reference Range Interpretation Comments Monocytes # (test code 0.2 See_Comment [Aut omated message] The = Monocytes #) system which generated this result tra nsmitted reference range : <=0.8. The reference r ozzy was not used to int erpret this result as normal/abnormal . [facility] HospitalUaaccwtVFWWVBBSLI3712-66-31 19:24:00 Test Item Value Reference Range Interpretation Comments Lymphocytes (test code = Lymphocytes) 24.5 20.0-40.0 [facility] HospitalAqapshtXBEBHPIKHH9010-25-14 19:24:00 Test Item Value Reference Range Interpretation Comments Segs (test code = Segs) 71.8 45.0-75.0 [facility] HospitalWtmuhriPDRLNGROCS9973-26-75 19:24:00 Test Item Value Reference Range Interpretation Comments Basophils (test code = 0.6 See_Comment [Aut omated message] The Basophils) system which ge nerated this result tra nsmitted reference range : <=1.0. The reference r ozzy was not used to int erpret this result as normal/abnormal . [facility] HospitalGasalefDLACCMNQOF1493-75-09 19:24:00 Test Item Value Reference Range Interpretation Comments Monocytes (test code = Monocytes) 1.5 2.0-12.0 [facility] HospitalMxvvqlkMQZBRMXIVG9832-79-54 19:24:00 Test Item Value Reference Range Interpretation Comments Eosinophils (test code = 1.6 See_Comment [A utomated message] The Eosinophils) system which ge nerated this result tra nsmitted reference range : <=4.0. The reference r ozzy was not used to int erpret this result as normal/abnormal . [facility] HospitalJnyaptmHPWTKZIVHI2552-80-77 19:24:00 Test Item Value Reference Range Interpretation Comments Plt Morph (test code = Normal (08/24/14 1:24 Plt Morph) PM) [facility] AND [id number] 19:24:00 Test Item Value Reference Range Interpretation Comments UA Sq Epi (test code = UA Sq Occasional /LPF Epi) [facility] AND [id number] 19:24:00 Test Item Value Reference Range Interpretation Comments UA Bacteria (test code = UA Occasional /HPF Bacteria) [facility] AND [id number] 19:24:00 Test Item Value Reference Range Interpretation Comments UA Mucus (test code = None Seen (08/24/14 UA Mucus) 1:24 PM) [facility] AND [id number] 19:24:00 Test Item Value Reference Range Interpretation Comments UA WBC (test code = UA WBC) 0-2 /HPF [facility] AND [id number] 19:24:00 Test Item Value Reference Range Interpretation Comments UA RBC (test code = 0-2 /HPF See_Comment [Automa gaye message] The UA RBC) system which ge nerated this result tra nsmitted reference range : <=2. The reference range was not used to interpr et this result as satish l/abnormal. [facility] AND [id number] 19:24:00 Test Item Value Reference Range Interpretation Comments UA Leuk Est (test Moderate *ABN*(08/24/14 code = UA Leuk Est) 1:24 PM) [facility] AND [id number] 19:24:00 Test Item Value Reference Range Interpretation Comments UA Nitrite (test code Negative (08/24/14 1:24 = UA Nitrite) PM) [facility] AND [id number] 19:24:00 Test Item Value Reference Range Interpretation Comments UA Urobilinogen (test code = UA 0.2 0.1-1.0 Urobilinogen) [facility] AND [id number] 19:24:00 Test Item Value Reference Range Interpretation Comments UA Ketones (test code Negative *NA*(08/24/14 = UA Ketones) 1:24 PM) [facility] AND [id number] 19:24:00 Test Item Value Reference Range Interpretation Comments UA Blood (test code = Negative (08/24/14 1:24 UA Blood) PM) [facility] AND [id number] 19:24:00 Test Item Value Reference Range Interpretation Comments UA Bili (test code = Negative *NA*(08/24/14 UA Bili) 1:24 PM) [facility] AND [id number] 19:24:00 Test Item Value Reference Range Interpretation Comments UA Color (test code = Yellow *NA*(08/24/14 UA Color) 1:24 PM) [facility] AND [id number] 19:24:00 Test Item Value Reference Range Interpretation Comments UA Glucose (test code Negative (1/12/15 1:24 = UA Glucose) PM) [facility] AND [id number] 19:24:00 Test Item Value Reference Range Interpretation Comments UA Protein (test code Negative (08/24/14 1:24 = UA Protein) PM) [facility] AND [id number] 19:24:00 Test Item Value Reference Range Interpretation Comments UA pH (test code = UA pH) 6.0 1 5.0-8.0 [facility] AND [id number] 19:24:00 Test Item Value Reference Range Interpretation Comments UA Spec Grav (test code *NA*(08/24/14 1:24 PM) = UA Spec Grav) [facility] AND [id number] 19:24:00 Test Item Value Reference Range Interpretation Comments UA Turbidity (test code = Clear (08/24/14 1:24 UA Turbidity) PM) [facility]2015-01-12 19:24:00 Test Item Value Reference Range Interpretation Comments Lipase Lvl (test code = Lipase Lvl) 104 73-393 [facility]2015-01-12 19:24:00 Test Item Value Reference Range Interpretation Comments eGFR (test code = eGFR) 109 [facility]2015-01-12 19:24:00 Test Item Value Reference Range Interpretation Comments Bili Total (test code = Bili Total) 0.6 0.2-1.3 [facility]2015-01-12 19:24:00 Test Item Value Reference Range Interpretation Comments Alk Phos (test code = Alk Phos) 72 39-136 [facility]2015-01-12 19:24:00 Test Item Value Reference Range Interpretation Comments Calcium Lvl (test code = Calcium Lvl) 8.8 8.5-10.5 [facility]2015-01-12 19:24:00 Test Item Value Reference Range Interpretation Comments CO2 (test code = CO2) 28 24-32 [facility]2015-01-12 19:24:00 Test Item Value Reference Range Interpretation Comments Chloride Lvl (test code = Chloride Lvl) 107 95-109 [facility]2015-01-12 19:24:00 Test Item Value Reference Range Interpretation Comments Potassium Lvl (test code = Potassium 3.9 3.5-5.1 Lvl) [facility]2015-01-12 19:24:00 Test Item Value Reference Range Interpretation Comments Glucose Lvl (test code = Glucose Lvl) 90 70-99 [facility]2015-01-12 19:24:00 Test Item Value Reference Range Interpretation Comments Sodium Lvl (test code = Sodium Lvl) 138 135-145 [facility]2015-01-12 19:24:00 Test Item Value Reference Range Interpretation Comments BUN (test code = BUN) 7 7-22 [place] [id number] 19:24:00 Test Item Value Reference Range Interpretation Comments Creatinine Lvl (test code = Creatinine 0.7 0.5-1.4 Lvl) [facility]2015-01-12 19:24:00 Test Item Value Reference Range Interpretation Comments ALT (test code = ALT) 23 See_Comment [Auto mated message] The system which ge nerated this result transmit gaye reference range : <=65. The reference range was not used to interpr et this result as satish l/abnormal. [facility]2015-01-12 19:24:00 Test Item Value Reference Range Interpretation Comments AST (test code = AST) 12 See_Comment [Auto mated message] The system which ge nerated this result transmit gaye reference range : <=37. The reference range was not used to interpr et this result as satish l/abnormal. [facility]2015-01-12 19:24:00 Test Item Value Reference Range Interpretation Comments Albumin Lvl (test code = Albumin Lvl) 3.8 3.5-5.0 [facility]2015-01-12 19:24:00 Test Item Value Reference Range Interpretation Comments Total Protein (test code = Total 8.0 6.4-8.4 Protein) [place] [id number] 19:24:00 Test Item Value Reference Range Interpretation Comments A/G Ratio (test code = A/G Ratio) 0.9 0.7-1.6 [place] [id number] 19:24:00 Test Item Value Reference Range Interpretation Comments AGAP (test code = AGAP) 6.9 10.0-20.0 [place] [id number] 19:24:00 Test Item Value Reference Range Interpretation Comments B/C Ratio (test code = B/C Ratio) 10 6-25 [facility] [id number] 19:24:00 Test Item Value Reference Range Interpretation Comments Globulin (test code = Globulin) 4.2 2.0-4.0 [facility][id number] 19:24:00 Test Item Value Reference Range Interpretation Comments S Preg (test code = S Negative *NA*(08/24/14 Preg) 1:24 PM) [facility]ErnvhkxRQTCHLOCYJ7460-49-82 19:24:00 Test Item Value Reference Range Interpretation Comments WBC (test code = WBC) 11.3 3.7-10.4 [facility] Hospit[id number] 19:24:00 Test Item Value Reference Range Interpretation Comments RBC (test code = RBC) 4.75 4.20-5.40 [facility] HospitalFsszgyzWEUUJOJNQK7163-26-83 19:24:00 Test Item Value Reference Range Interpretation Comments Platelet (test code = Platelet) 402 133-450 [facility] HospitalUmnpkxoVVBUCKVEZD2074-69-01 19:24:00 Test Item Value Reference Range Interpretation Comments MCV (test code = MCV) 89.9 80.0-98.0 [facility] HospitalMoyisquSIAXFQZJRJ6581-50-95 19:24:00 Test Item Value Reference Range Interpretation Comments Hct (test code = Hct) 42.7 36.0-48.0 [facility] HospitalHtprrilWKVKGAMBJF8079-51-63 19:24:00 Test Item Value Reference Range Interpretation Comments Hgb (test code = Hgb) 14.5 12.0-16.0 [facility] HospitalPdvqhmwFWYQOUTPZX7601-95-56 19:24:00 Test Item Value Reference Range Interpretation Comments RDW (test code = RDW) 13.5 11.5-14.5 [facility] HospitalSzkgkiyCDGTQDPYUJ2747-21-15 19:24:00 Test Item Value Reference Range Interpretation Comments MCHC (test code = MCHC) 34.0 32.0-36.0 [facility] HospitalExitykmMHSKSAHBMB0483-71-97 19:24:00 Test Item Value Reference Range Interpretation Comments MCH (test code = MCH) 30.6 pg 27.0-31.0 [facility] HospitalNzqeapvYQUGNDRAKJ0837-13-01 19:24:00 Test Item Value Reference Range Interpretation Comments MPV (test code = MPV) 8.1 7.4-10.4 [facility] HospitalJnpfuatMVXPAHPBRK4027-62-22 19:24:00 Test Item Value Reference Range Interpretation Comments Stomatocyte (test code = Stomatocyte) Slight [facility] Hospit[id number] 19:24:00 Test Item Value Reference Range Interpretation Comments Basophils # (test code 0.1 See_Comment [Aut omated message] The = Basophils #) system which generated this result tra nsmitted reference range : <=0.2. The reference r ozzy was not used to int erpret this result as normal/abnormal . [facility] HospitalR[id number] 19:24:00 Test Item Value Reference Range Interpretation Comments Eosinophils # (test code 0.2 See_Comment [A utomated message] The = Eosinophils #) system whic h generated this result tra nsmitted reference range : <=0.5. The reference r ozzy was not used to int erpret this result as normal/abnormal . [facility] HospitalZnknlniVBRVZRDAMX5906-78-55 19:24:00 Test Item Value Reference Range Interpretation Comments Hypochrom (test code = 1+ (08/24/14 1:24 PM) Hypochrom) [facility] Hospit[id number] 19:24:00 Test Item Value Reference Range Interpretation Comments Lymphocytes # (test code = Lymphocytes 2.8 1.0-5.5 #) [facility] HospitalOlxlwvgDWRWMVHIGK2373-32-61 19:24:00 Test Item Value Reference Range Interpretation Comments Segs-Bands # (test code = Segs-Bands #) 8.1 1.5-8.1 [facility] Hospit[id number] 19:24:00 Test Item Value Reference Range Interpretation Comments Monocytes # (test code 0.2 See_Comment [Aut omated message] The = Monocytes #) system which generated this result tra nsmitted reference range : <=0.8. The reference r ozzy was not used to int erpret this result as normal/abnormal . [facility] HospitalQlapcsiDJDGLNWBLD1141-08-91 19:24:00 Test Item Value Reference Range Interpretation Comments Lymphocytes (test code = Lymphocytes) 24.5 20.0-40.0 [facility] Hospit[id number] 19:24:00 Test Item Value Reference Range Interpretation Comments Segs (test code = Segs) 71.8 45.0-75.0 [facility] Hospit[id number] 19:24:00 Test Item Value Reference Range Interpretation Comments Basophils (test code = 0.6 See_Comment [Aut omated message] The Basophils) system which ge nerated this result tra nsmitted reference range : <=1.0. The reference r ozzy was not used to int erpret this result as normal/abnormal . [facility] Hospit[id number] 19:24:00 Test Item Value Reference Range Interpretation Comments Monocytes (test code = Monocytes) 1.5 2.0-12.0 [facility] HospitalBpawxtaKEBURAAZKK1615-21-26 19:24:00 Test Item Value Reference Range Interpretation Comments Eosinophils (test code = 1.6 See_Comment [A utomated message] The Eosinophils) system which ge nerated this result tra nsmitted reference range : <=4.0. The reference r ozzy was not used to int erpret this result as normal/abnormal . [facility] HospitalFomecqrNRVAAWCVXK0605-20-30 19:24:00 Test Item Value Reference Range Interpretation Comments Plt Morph (test code = Normal (08/24/14 1:24 Plt Morph) PM) [facility] AND [id number] 19:24:00 Test Item Value Reference Range Interpretation Comments UA Sq Epi (test code = UA Sq Occasional /LPF Epi) [facility] AND [id number] 19:24:00 Test Item Value Reference Range Interpretation Comments UA Bacteria (test code = UA Occasional /HPF Bacteria) [facility] AND [id number] 19:24:00 Test Item Value Reference Range Interpretation Comments UA Mucus (test code = None Seen (08/24/14 UA Mucus) 1:24 PM) [facility] AND [id number] 19:24:00 Test Item Value Reference Range Interpretation Comments UA WBC (test code = UA WBC) 0-2 /HPF [facility] AND [id number] 19:24:00 Test Item Value Reference Range Interpretation Comments UA RBC (test code = 0-2 /HPF See_Comment [Automa gaye message] The UA RBC) system which ge nerated this result tra nsmitted reference range : <=2. The reference range was not used to interpr et this result as satish l/abnormal. [facility] AND [id number] 19:24:00 Test Item Value Reference Range Interpretation Comments UA Leuk Est (test Moderate *ABN*(08/24/14 code = UA Leuk Est) 1:24 PM) [facility] AND [id number] 19:24:00 Test Item Value Reference Range Interpretation Comments UA Nitrite (test code Negative (08/24/14 1:24 = UA Nitrite) PM) [facility] AND [id number] 19:24:00 Test Item Value Reference Range Interpretation Comments UA Urobilinogen (test code = UA 0.2 0.1-1.0 Urobilinogen) [facility] AND [id number] 19:24:00 Test Item Value Reference Range Interpretation Comments UA Ketones (test code Negative *NA*(08/24/14 = UA Ketones) 1:24 PM) [facility] AND [id number] 19:24:00 Test Item Value Reference Range Interpretation Comments UA Blood (test code = Negative (08/24/14 1:24 UA Blood) PM) [facility] AND [id number] 19:24:00 Test Item Value Reference Range Interpretation Comments UA Bili (test code = Negative *NA*(08/24/14 UA Bili) 1:24 PM) [facility] AND [id number] 19:24:00 Test Item Value Reference Range Interpretation Comments UA Color (test code = Yellow *NA*(08/24/14 UA Color) 1:24 PM) [facility] AND [id number] 19:24:00 Test Item Value Reference Range Interpretation Comments UA Glucose (test code Negative (08/24/14 1:24 = UA Glucose) PM) [facility] AND [id number] 19:24:00 Test Item Value Reference Range Interpretation Comments UA Protein (test code Negative (08/24/14 1:24 = UA Protein) PM) [facility] AND [id number] 19:24:00 Test Item Value Reference Range Interpretation Comments UA pH (test code = UA pH) 6.0 1 5.0-8.0 [facility] AND [id number] 19:24:00 Test Item Value Reference Range Interpretation Comments UA Spec Grav (test code *NA*(08/24/14 1:24 PM) = UA Spec Grav) [facility] AND [id number] 19:24:00 Test Item Value Reference Range Interpretation Comments UA Turbidity (test code = Clear (08/24/14 1:24 UA Turbidity) PM) [facility]2015-01-12 19:24:00 Test Item Value Reference Range Interpretation Comments Lipase Lvl (test code = Lipase Lvl) 104 73-393 [facility]2015-01-12 19:24:00 Test Item Value Reference Range Interpretation Comments eGFR (test code = eGFR) 109 [facility]2015-01-12 19:24:00 Test Item Value Reference Range Interpretation Comments Bili Total (test code = Bili Total) 0.6 0.2-1.3 [facility]2015-01-12 19:24:00 Test Item Value Reference Range Interpretation Comments Alk Phos (test code = Alk Phos) 72 39-136 [facility]2015-01-12 19:24:00 Test Item Value Reference Range Interpretation Comments Calcium Lvl (test code = Calcium Lvl) 8.8 8.5-10.5 [facility]2015-01-12 19:24:00 Test Item Value Reference Range Interpretation Comments CO2 (test code = CO2) 28 24-32 [facility]2015-01-12 19:24:00 Test Item Value Reference Range Interpretation Comments Chloride Lvl (test code = Chloride Lvl) 107 95-109 [facility]2015-01-12 19:24:00 Test Item Value Reference Range Interpretation Comments Potassium Lvl (test code = Potassium 3.9 3.5-5.1 Lvl) [facility]2015-01-12 19:24:00 Test Item Value Reference Range Interpretation Comments Glucose Lvl (test code = Glucose Lvl) 90 70-99 [facility]2015-01-12 19:24:00 Test Item Value Reference Range Interpretation Comments Sodium Lvl (test code = Sodium Lvl) 138 135-145 [facility]2015-01-12 19:24:00 Test Item Value Reference Range Interpretation Comments BUN (test code = BUN) 7 7-22 [facility]2015-01-12 19:24:00 Test Item Value Reference Range Interpretation Comments Creatinine Lvl (test code = Creatinine 0.7 0.5-1.4 Lvl) [facility]2015-01-12 19:24:00 Test Item Value Reference Range Interpretation Comments ALT (test code = ALT) 23 See_Comment [Auto mated message] The system which ge nerated this result transmit gaye reference range : <=65. The reference range was not used to interpr et this result as satish l/abnormal. [facility]2015-01-12 19:24:00 Test Item Value Reference Range Interpretation Comments AST (test code = AST) 12 See_Comment [Auto mated message] The system which ge nerated this result transmit gaye reference range : <=37. The reference range was not used to interpr et this result as satish l/abnormal. [facility]2015-01-12 19:24:00 Test Item Value Reference Range Interpretation Comments Albumin Lvl (test code = Albumin Lvl) 3.8 3.5-5.0 [facility]2015-01-12 19:24:00 Test Item Value Reference Range Interpretation Comments Total Protein (test code = Total 8.0 6.4-8.4 Protein) [facility]2015-01-12 19:24:00 Test Item Value Reference Range Interpretation Comments A/G Ratio (test code = A/G Ratio) 0.9 0.7-1.6 [facility]2015-01-12 19:24:00 Test Item Value Reference Range Interpretation Comments AGAP (test code = AGAP) 6.9 10.0-20.0 [facility]2015-01-12 19:24:00 Test Item Value Reference Range Interpretation Comments B/C Ratio (test code = B/C Ratio) 10 6-25 [facility]2015-01-12 19:24:00 Test Item Value Reference Range Interpretation Comments Globulin (test code = Globulin) 4.2 2.0-4.0 [id number] 19:24:00 Test Item Value Reference Range Interpretation Comments S Preg (test code = S Negative *NA*(08/24/14 Preg) 1:24 PM) [place] 246255-01-12 19:24:00 Test Item Value Reference Range Interpretation Comments WBC (test code = WBC) 11.3 3.7-10.4 [id number] 19:24:00 Test Item Value Reference Range Interpretation Comments RBC (test code = RBC) 4.75 4.20-5.40 [facility]TbeiqhmUHVVNJHDCI8070-55-94 19:24:00 Test Item Value Reference Range Interpretation Comments Platelet (test code = Platelet) 402 133-450 [facility]MbszpxcNNIFDJRVPX9358-44-03 19:24:00 Test Item Value Reference Range Interpretation Comments MCV (test code = MCV) 89.9 80.0-98.0 [facility]HgfgjquBWDJUYUEBY9095-00-93 19:24:00 Test Item Value Reference Range Interpretation Comments Hct (test code = Hct) 42.7 36.0-48.0 [facility] HospitalGsbbfxmPFKCCSGHXY3985-05-18 19:24:00 Test Item Value Reference Range Interpretation Comments Hgb (test code = Hgb) 14.5 12.0-16.0 [facility] HospitalTnwcyenZNEGRJHFBC6232-41-99 19:24:00 Test Item Value Reference Range Interpretation Comments RDW (test code = RDW) 13.5 11.5-14.5 [facility] HospitalOgrceiiDAUAPKAMXC2175-29-38 19:24:00 Test Item Value Reference Range Interpretation Comments MCHC (test code = MCHC) 34.0 32.0-36.0 [facility] HospitalS[id number] 19:24:00 Test Item Value Reference Range Interpretation Comments MCH (test code = MCH) 30.6 pg 27.0-31.0 [facility] HospitalZzwdorsLJWWULMVHQ1242-95-62 19:24:00 Test Item Value Reference Range Interpretation Comments MPV (test code = MPV) 8.1 7.4-10.4 [facility] Hospit[id number] 19:24:00 Test Item Value Reference Range Interpretation Comments Stomatocyte (test code = Stomatocyte) Slight [facility] HospitalLbwvgokKZNGAHRJLS4041-86-03 19:24:00 Test Item Value Reference Range Interpretation Comments Basophils # (test code 0.1 See_Comment [Aut omated message] The = Basophils #) system which generated this result tra nsmitted reference range : <=0.2. The reference r ozzy was not used to int erpret this result as normal/abnormal . [facility] HospitalZvjfnecPHAVYNQZWV9382-44-13 19:24:00 Test Item Value Reference Range Interpretation Comments Eosinophils # (test code 0.2 See_Comment [A utomated message] The = Eosinophils #) system whic h generated this result tra nsmitted reference range : <=0.5. The reference r ozzy was not used to int erpret this result as normal/abnormal . [facility] HospitalOlehrymCJUALIEUHB1640-17-97 19:24:00 Test Item Value Reference Range Interpretation Comments Hypochrom (test code = 1+ (08/24/14 1:24 PM) Hypochrom) [facility] HospitalAhajukzNANXGQYMZC7468-34-28 19:24:00 Test Item Value Reference Range Interpretation Comments Lymphocytes # (test code = Lymphocytes 2.8 1.0-5.5 #) [facility] HospitalWocqjjoXBIXDPZKZV5336-72-60 19:24:00 Test Item Value Reference Range Interpretation Comments Segs-Bands # (test code = Segs-Bands #) 8.1 1.5-8.1 [facility] HospitalGwrkunxNRMHQEEVRI9514-38-77 19:24:00 Test Item Value Reference Range Interpretation Comments Monocytes # (test code 0.2 See_Comment [Aut omated message] The = Monocytes #) system which generated this result tra nsmitted reference range : <=0.8. The reference r ozzy was not used to int erpret this result as normal/abnormal . [facility] HospitalHretiuiLTUUXVCHBT0125-55-25 19:24:00 Test Item Value Reference Range Interpretation Comments Lymphocytes (test code = Lymphocytes) 24.5 20.0-40.0 [facility] HospitalSqdqtluETSISUTDRC8960-44-95 19:24:00 Test Item Value Reference Range Interpretation Comments Segs (test code = Segs) 71.8 45.0-75.0 [facility] HospitalRnisxnjSDWBAJANMX9907-66-51 19:24:00 Test Item Value Reference Range Interpretation Comments Basophils (test code = 0.6 See_Comment [Aut omated message] The Basophils) system which ge nerated this result tra nsmitted reference range : <=1.0. The reference r ozzy was not used to int erpret this result as normal/abnormal . [facility] HospitalZxccdozMXHHQEYULG8221-11-43 19:24:00 Test Item Value Reference Range Interpretation Comments Monocytes (test code = Monocytes) 1.5 2.0-12.0 [facility] H[id number] 19:24:00 Test Item Value Reference Range Interpretation Comments Eosinophils (test code = 1.6 See_Comment [A utomated message] The Eosinophils) system which ge nerated this result tra nsmitted reference range : <=4.0. The reference r ozzy was not used to int erpret this result as normal/abnormal . [facility] HospitalAyjlborUPMLCCENXP5643-18-20 19:24:00 Test Item Value Reference Range Interpretation Comments Plt Morph (test code = Normal (08/24/14 1:24 Plt Morph) PM) [facility] AND [id number] 19:24:00 Test Item Value Reference Range Interpretation Comments UA Sq Epi (test code = UA Sq Occasional /LPF Epi) [facility] AND [id number] 19:24:00 Test Item Value Reference Range Interpretation Comments UA Bacteria (test code = UA Occasional /HPF Bacteria) [facility] AND [id number] 19:24:00 Test Item Value Reference Range Interpretation Comments UA Mucus (test code = None Seen (08/24/14 UA Mucus) 1:24 PM) [facility] AND [id number] 19:24:00 Test Item Value Reference Range Interpretation Comments UA WBC (test code = UA WBC) 0-2 /HPF [facility] AND [id number] 19:24:00 Test Item Value Reference Range Interpretation Comments UA RBC (test code = 0-2 /HPF See_Comment [Automa gaye message] The UA RBC) system which ge nerated this result tra nsmitted reference range : <=2. The reference range was not used to interpr et this result as satish l/abnormal. [facility] AND [id number] 19:24:00 Test Item Value Reference Range Interpretation Comments UA Leuk Est (test Moderate *ABN*(08/24/14 code = UA Leuk Est) 1:24 PM) [facility] AND [id number] 19:24:00 Test Item Value Reference Range Interpretation Comments UA Nitrite (test code Negative (08/24/14 1:24 = UA Nitrite) PM) [facility] AND [id number] 19:24:00 Test Item Value Reference Range Interpretation Comments UA Urobilinogen (test code = UA 0.2 0.1-1.0 Urobilinogen) [facility] AND [id number] 19:24:00 Test Item Value Reference Range Interpretation Comments UA Ketones (test code Negative *NA*(08/24/14 = UA Ketones) 1:24 PM) [facility] AND [id number] 19:24:00 Test Item Value Reference Range Interpretation Comments UA Blood (test code = Negative (08/24/14 1:24 UA Blood) PM) [facility] AND [id number] 19:24:00 Test Item Value Reference Range Interpretation Comments UA Bili (test code = Negative *NA*(08/24/14 UA Bili) 1:24 PM) [facility] AND [id number] 19:24:00 Test Item Value Reference Range Interpretation Comments UA Color (test code = Yellow *NA*(08/24/14 UA Color) 1:24 PM) [facility] AND [id number] 19:24:00 Test Item Value Reference Range Interpretation Comments UA Glucose (test code Negative (08/24/14 1:24 = UA Glucose) PM) [facility] AND [id number] 19:24:00 Test Item Value Reference Range Interpretation Comments UA Protein (test code Negative (08/24/14 1:24 = UA Protein) PM) [facility] AND [id number] 19:24:00 Test Item Value Reference Range Interpretation Comments UA pH (test code = UA pH) 6.0 1 5.0-8.0 [facility] AND [id number] 19:24:00 Test Item Value Reference Range Interpretation Comments UA Spec Grav (test code *NA*(08/24/14 1:24 PM) = UA Spec Grav) [facility] AND [id number] 19:24:00 Test Item Value Reference Range Interpretation Comments UA Turbidity (test code = Clear (08/24/14 1:24 UA Turbidity) PM) [facility]2015-01-12 19:24:00 Test Item Value Reference Range Interpretation Comments Lipase Lvl (test code = Lipase Lvl) 104 73-393 [facility]2015-01-12 19:24:00 Test Item Value Reference Range Interpretation Comments eGFR (test code = eGFR) 109 [facility]2015-01-12 19:24:00 Test Item Value Reference Range Interpretation Comments Bili Total (test code = Bili Total) 0.6 0.2-1.3 [facility]2015-01-12 19:24:00 Test Item Value Reference Range Interpretation Comments Alk Phos (test code = Alk Phos) 72 39-136 [facility]2015-01-12 19:24:00 Test Item Value Reference Range Interpretation Comments Calcium Lvl (test code = Calcium Lvl) 8.8 8.5-10.5 [facility]2015-01-12 19:24:00 Test Item Value Reference Range Interpretation Comments CO2 (test code = CO2) 28 24-32 [facility]2015-01-12 19:24:00 Test Item Value Reference Range Interpretation Comments Chloride Lvl (test code = Chloride Lvl) 107 95-109 [facility]2015-01-12 19:24:00 Test Item Value Reference Range Interpretation Comments Potassium Lvl (test code = Potassium 3.9 3.5-5.1 Lvl) [facility]2015-01-12 19:24:00 Test Item Value Reference Range Interpretation Comments Glucose Lvl (test code = Glucose Lvl) 90 70-99 [facility]2015-01-12 19:24:00 Test Item Value Reference Range Interpretation Comments Sodium Lvl (test code = Sodium Lvl) 138 135-145 [facility]2015-01-12 19:24:00 Test Item Value Reference Range Interpretation Comments BUN (test code = BUN) 7 7-22 [facility]2015-01-12 19:24:00 Test Item Value Reference Range Interpretation Comments Creatinine Lvl (test code = Creatinine 0.7 0.5-1.4 Lvl) [facility]2015-01-12 19:24:00 Test Item Value Reference Range Interpretation Comments ALT (test code = ALT) 23 See_Comment [Auto mated message] The system which ge nerated this result transmit gaye reference range : <=65. The reference range was not used to interpr et this result as satish l/abnormal. [place] [id number] 19:24:00 Test Item Value Reference Range Interpretation Comments AST (test code = AST) 12 See_Comment [Auto mated message] The system which ge nerated this result transmit gaye reference range : <=37. The reference range was not used to interpr et this result as satish l/abnormal. [facility]2015-01-12 19:24:00 Test Item Value Reference Range Interpretation Comments Albumin Lvl (test code = Albumin Lvl) 3.8 3.5-5.0 [facility]2015-01-12 19:24:00 Test Item Value Reference Range Interpretation Comments Total Protein (test code = Total 8.0 6.4-8.4 Protein) [facility]2015-01-12 19:24:00 Test Item Value Reference Range Interpretation Comments A/G Ratio (test code = A/G Ratio) 0.9 0.7-1.6 [facility]2015-01-12 19:24:00 Test Item Value Reference Range Interpretation Comments AGAP (test code = AGAP) 6.9 10.0-20.0 [facility]2015-01-12 19:24:00 Test Item Value Reference Range Interpretation Comments B/C Ratio (test code = B/C Ratio) 10 6-25 [facility]2015-01-12 19:24:00 Test Item Value Reference Range Interpretation Comments Globulin (test code = Globulin) 4.2 2.0-4.0 [id number] 19:24:00 Test Item Value Reference Range Interpretation Comments S Preg (test code = S Negative *NA*(08/24/14 Preg) 1:24 PM) [facility]ZcvegpjNFEWWOQPLA7198-97-20 19:24:00 Test Item Value Reference Range Interpretation Comments WBC (test code = WBC) 11.3 3.7-10.4 [facility] H[id number] 19:24:00 Test Item Value Reference Range Interpretation Comments RBC (test code = RBC) 4.75 4.20-5.40 [id number] 19:24:00 Test Item Value Reference Range Interpretation Comments Platelet (test code = Platelet) 402 133-450 [facility] Hospit[id number] 19:24:00 Test Item Value Reference Range Interpretation Comments MCV (test code = MCV) 89.9 80.0-98.0 [facility] Hospit[id number] 19:24:00 Test Item Value Reference Range Interpretation Comments Hct (test code = Hct) 42.7 36.0-48.0 [facility] HospitalFtvkfjiLWGTTUUVIN1598-56-03 19:24:00 Test Item Value Reference Range Interpretation Comments Hgb (test code = Hgb) 14.5 12.0-16.0 [facility] HospitalYwjeschNBHKKWDVTZ5401-82-53 19:24:00 Test Item Value Reference Range Interpretation Comments RDW (test code = RDW) 13.5 11.5-14.5 [facility] HospitalQfdscblNEUARTGKLT9784-31-13 19:24:00 Test Item Value Reference Range Interpretation Comments MCHC (test code = MCHC) 34.0 32.0-36.0 [facility] HospitalJokjefhSMNSAYKTLY2314-88-50 19:24:00 Test Item Value Reference Range Interpretation Comments MCH (test code = MCH) 30.6 pg 27.0-31.0 [facility]QsovepfHCYAHRPLRG4436-68-53 19:24:00 Test Item Value Reference Range Interpretation Comments MPV (test code = MPV) 8.1 7.4-10.4 [facility] HospitalQfblwasNUVIYDYDBO9079-07-07 19:24:00 Test Item Value Reference Range Interpretation Comments Stomatocyte (test code = Stomatocyte) Slight [facility] HospitalArtctpgRHYLGOUWGK6159-02-82 19:24:00 Test Item Value Reference Range Interpretation Comments Basophils # (test code 0.1 See_Comment [Aut omated message] The = Basophils #) system which generated this result tra nsmitted reference range : <=0.2. The reference r ozzy was not used to int erpret this result as normal/abnormal . [facility] Ho[id number] 19:24:00 Test Item Value Reference Range Interpretation Comments Eosinophils # (test code 0.2 See_Comment [A utomated message] The = Eosinophils #) system whic h generated this result tra nsmitted reference range : <=0.5. The reference r ozzy was not used to int erpret this result as normal/abnormal . [facility] Hospit[id number] 19:24:00 Test Item Value Reference Range Interpretation Comments Hypochrom (test code = 1+ (08/24/14 1:24 PM) Hypochrom) [facility] HospitalM[id number] 19:24:00 Test Item Value Reference Range Interpretation Comments Lymphocytes # (test code = Lymphocytes 2.8 1.0-5.5 #) [facility] HospitalGvnitnbEAGXBXJRQO4513-40-87 19:24:00 Test Item Value Reference Range Interpretation Comments Segs-Bands # (test code = Segs-Bands #) 8.1 1.5-8.1 [facility] Hos[id number] 19:24:00 Test Item Value Reference Range Interpretation Comments Monocytes # (test code 0.2 See_Comment [Aut omated message] The = Monocytes #) system which generated this result tra nsmitted reference range : <=0.8. The reference r ozzy was not used to int erpret this result as normal/abnormal . [facility] HospitalTndzjhpKZYZTKAACL8939-63-53 19:24:00 Test Item Value Reference Range Interpretation Comments Lymphocytes (test code = Lymphocytes) 24.5 20.0-40.0 [facility] HospitalEenjoqoCSMPWGQRHH8789-18-91 19:24:00 Test Item Value Reference Range Interpretation Comments Segs (test code = Segs) 71.8 45.0-75.0 [facility] HospitalQacacmxLODLQQDGYE8274-07-25 19:24:00 Test Item Value Reference Range Interpretation Comments Basophils (test code = 0.6 See_Comment [Aut omated message] The Basophils) system which ge nerated this result tra nsmitted reference range : <=1.0. The reference r ozzy was not used to int erpret this result as normal/abnormal . [facility] HospitalDmgpuocFHBTNVOKHF2474-26-54 19:24:00 Test Item Value Reference Range Interpretation Comments Monocytes (test code = Monocytes) 1.5 2.0-12.0 [facility] HospitalNbgrrzcPRGGYAAQIS1089-99-20 19:24:00 Test Item Value Reference Range Interpretation Comments Eosinophils (test code = 1.6 See_Comment [A utomated message] The Eosinophils) system which ge nerated this result tra nsmitted reference range : <=4.0. The reference r ozzy was not used to int erpret this result as normal/abnormal . [facility] HospitalHhvirbtHEAXXYLYLH8355-21-30 19:24:00 Test Item Value Reference Range Interpretation Comments Plt Morph (test code = Normal (08/24/14 1:24 Plt Morph) PM) [facility] AND [id number] 19:24:00 Test Item Value Reference Range Interpretation Comments UA Sq Epi (test code = UA Sq Occasional /LPF Epi) [facility] AND [id number] 19:24:00 Test Item Value Reference Range Interpretation Comments UA Bacteria (test code = UA Occasional /HPF Bacteria) [facility] AND [id number] 19:24:00 Test Item Value Reference Range Interpretation Comments UA Mucus (test code = None Seen (08/24/14 UA Mucus) 1:24 PM) [facility] AND [id number] 19:24:00 Test Item Value Reference Range Interpretation Comments UA WBC (test code = UA WBC) 0-2 /HPF [facility] AND [id number] 19:24:00 Test Item Value Reference Range Interpretation Comments UA RBC (test code = 0-2 /HPF See_Comment [Automa gaye message] The UA RBC) system which ge nerated this result tra nsmitted reference range : <=2. The reference range was not used to interpr et this result as satish l/abnormal. [facility] AND [id number] 19:24:00 Test Item Value Reference Range Interpretation Comments UA Leuk Est (test Moderate *ABN*(08/24/14 code = UA Leuk Est) 1:24 PM) [facility] AND [id number] 19:24:00 Test Item Value Reference Range Interpretation Comments UA Nitrite (test code Negative (08/24/14 1:24 = UA Nitrite) PM) [facility] AND [id number] 19:24:00 Test Item Value Reference Range Interpretation Comments UA Urobilinogen (test code = UA 0.2 0.1-1.0 Urobilinogen) [facility] AND [id number] 19:24:00 Test Item Value Reference Range Interpretation Comments UA Ketones (test code Negative *NA*(08/24/14 = UA Ketones) 1:24 PM) [facility] AND [id number] 19:24:00 Test Item Value Reference Range Interpretation Comments UA Blood (test code = Negative (08/24/14 1:24 UA Blood) PM) [facility] AND [id number] 19:24:00 Test Item Value Reference Range Interpretation Comments UA Bili (test code = Negative *NA*(08/24/14 UA Bili) 1:24 PM) [facility] AND [id number] 19:24:00 Test Item Value Reference Range Interpretation Comments UA Color (test code = Yellow *NA*(08/24/14 UA Color) 1:24 PM) [facility] AND [id number] 19:24:00 Test Item Value Reference Range Interpretation Comments UA Glucose (test code Negative (08/24/14 1:24 = UA Glucose) PM) [facility] AND [id number] 19:24:00 Test Item Value Reference Range Interpretation Comments UA Protein (test code Negative (08/24/14 1:24 = UA Protein) PM) [facility] AND [id number] 19:24:00 Test Item Value Reference Range Interpretation Comments UA pH (test code = UA pH) 6.0 1 5.0-8.0 [facility] AND [id number] 19:24:00 Test Item Value Reference Range Interpretation Comments UA Spec Grav (test code *NA*(08/24/14 1:24 PM) = UA Spec Grav) [facility] AND [id number] 19:24:00 Test Item Value Reference Range Interpretation Comments UA Turbidity (test code = Clear (08/24/14 1:24 UA Turbidity) PM) [facility]2015-01-12 19:24:00 Test Item Value Reference Range Interpretation Comments Lipase Lvl (test code = Lipase Lvl) 104 73-393 [facility] [id number] 19:24:00 Test Item Value Reference Range Interpretation Comments eGFR (test code = eGFR) 109 [facility]2015-01-12 19:24:00 Test Item Value Reference Range Interpretation Comments Bili Total (test code = Bili Total) 0.6 0.2-1.3 [facility]2015-01-12 19:24:00 Test Item Value Reference Range Interpretation Comments Alk Phos (test code = Alk Phos) 72 39-136 [facility]2015-01-12 19:24:00 Test Item Value Reference Range Interpretation Comments Calcium Lvl (test code = Calcium Lvl) 8.8 8.5-10.5 [facility]2015-01-12 19:24:00 Test Item Value Reference Range Interpretation Comments CO2 (test code = CO2) 28 24-32 [facility]2015-01-12 19:24:00 Test Item Value Reference Range Interpretation Comments Chloride Lvl (test code = Chloride Lvl) 107 95-109 [facility]2015-01-12 19:24:00 Test Item Value Reference Range Interpretation Comments Potassium Lvl (test code = Potassium 3.9 3.5-5.1 Lvl) [facility]2015-01-12 19:24:00 Test Item Value Reference Range Interpretation Comments Glucose Lvl (test code = Glucose Lvl) 90 70-99 [facility]2015-01-12 19:24:00 Test Item Value Reference Range Interpretation Comments Sodium Lvl (test code = Sodium Lvl) 138 135-145 [facility]2015-01-12 19:24:00 Test Item Value Reference Range Interpretation Comments BUN (test code = BUN) 7 7-22 [facility]2015-01-12 19:24:00 Test Item Value Reference Range Interpretation Comments Creatinine Lvl (test code = Creatinine 0.7 0.5-1.4 Lvl) [facility]2015-01-12 19:24:00 Test Item Value Reference Range Interpretation Comments ALT (test code = ALT) 23 See_Comment [Auto mated message] The system which ge nerated this result transmit gaye reference range : <=65. The reference range was not used to interpr et this result as satish l/abnormal. [facility]2015-01-12 19:24:00 Test Item Value Reference Range Interpretation Comments AST (test code = AST) 12 See_Comment [Auto mated message] The system which ge nerated this result transmit gaye reference range : <=37. The reference range was not used to interpr et this result as satish l/abnormal. [facility]2015-01-12 19:24:00 Test Item Value Reference Range Interpretation Comments Albumin Lvl (test code = Albumin Lvl) 3.8 3.5-5.0 [facility]2015-01-12 19:24:00 Test Item Value Reference Range Interpretation Comments Total Protein (test code = Total 8.0 6.4-8.4 Protein) [facility]2015-01-12 19:24:00 Test Item Value Reference Range Interpretation Comments A/G Ratio (test code = A/G Ratio) 0.9 0.7-1.6 [facility]2015-01-12 19:24:00 Test Item Value Reference Range Interpretation Comments AGAP (test code = AGAP) 6.9 10.0-20.0 [facility]2015-01-12 19:24:00 Test Item Value Reference Range Interpretation Comments B/C Ratio (test code = B/C Ratio) 10 6-25 [facility]2015-01-12 19:24:00 Test Item Value Reference Range Interpretation Comments Globulin (test code = Globulin) 4.2 2.0-4.0 [facility]MSCPP[facility]64 19:24:00 Test Item Value Reference Range Interpretation Comments S Preg (test code = S Negative *NA*(08/24/14 Preg) 1:24 PM) [facility]SP[facility]64[facility] 19:24:00 Test Item Value Reference Range Interpretation Comments WBC (test code = WBC) 11.3 3.7-10.4 [facility]CcibuntLQFVTWOYTZ2808-99-17 19:24:00 Test Item Value Reference Range Interpretation Comments RBC (test code = RBC) 4.75 4.20-5.40 [facility] HospitalDhwyrskCMLGEGHBCU2242-28-17 19:24:00 Test Item Value Reference Range Interpretation Comments Platelet (test code = Platelet) 402 133-450 [facility] HospitalZsmwonkQNRGFBPBMT8177-72-38 19:24:00 Test Item Value Reference Range Interpretation Comments MCV (test code = MCV) 89.9 80.0-98.0 [facility] HospitalRzkfuizMLVGEHZNLP1952-07-13 19:24:00 Test Item Value Reference Range Interpretation Comments Hct (test code = Hct) 42.7 36.0-48.0 [facility] HospitalZnhzdpqZHPQVSJKJW8818-98-21 19:24:00 Test Item Value Reference Range Interpretation Comments Hgb (test code = Hgb) 14.5 12.0-16.0 [facility] HospitalQqqordcMZTRGBIRUI5016-18-29 19:24:00 Test Item Value Reference Range Interpretation Comments RDW (test code = RDW) 13.5 11.5-14.5 [facility] HospitalBcojjlvCWTVKLZPKA7959-12-98 19:24:00 Test Item Value Reference Range Interpretation Comments MCHC (test code = MCHC) 34.0 32.0-36.0 [facility] HospitalEjxdtawYEMIWDTISC6654-98-87 19:24:00 Test Item Value Reference Range Interpretation Comments MCH (test code = MCH) 30.6 pg 27.0-31.0 [facility] HospitalZstgcteMXWTFAOCXM4198-01-62 19:24:00 Test Item Value Reference Range Interpretation Comments MPV (test code = MPV) 8.1 7.4-10.4 [facility] HospitalKcgyqnzRWNLUGCWPY6674-65-67 19:24:00 Test Item Value Reference Range Interpretation Comments Stomatocyte (test code = Stomatocyte) Slight [facility] HospitalByzdhkjMRWFPRPHEA1196-54-06 19:24:00 Test Item Value Reference Range Interpretation Comments Basophils # (test code 0.1 See_Comment [Aut omated message] The = Basophils #) system which generated this result tra nsmitted reference range : <=0.2. The reference r ozzy was not used to int erpret this result as normal/abnormal . [facility] H[id number] 19:24:00 Test Item Value Reference Range Interpretation Comments Eosinophils # (test code 0.2 See_Comment [A utomated message] The = Eosinophils #) system whic h generated this result tra nsmitted reference range : <=0.5. The reference r ozzy was not used to int erpret this result as normal/abnormal . [facility] HospitalOkjoyjjOREIQQTWTW8770-89-20 19:24:00 Test Item Value Reference Range Interpretation Comments Hypochrom (test code = 1+ (08/24/14 1:24 PM) Hypochrom) [facility] Ho[id number] 19:24:00 Test Item Value Reference Range Interpretation Comments Lymphocytes # (test code = Lymphocytes 2.8 1.0-5.5 #) [facility] HospitalOinoxgbJNIGBXVHZI6631-58-62 19:24:00 Test Item Value Reference Range Interpretation Comments Segs-Bands # (test code = Segs-Bands #) 8.1 1.5-8.1 [facility] H[id number] 19:24:00 Test Item Value Reference Range Interpretation Comments Monocytes # (test code 0.2 See_Comment [Aut omated message] The = Monocytes #) system which generated this result tra nsmitted reference range : <=0.8. The reference r ozzy was not used to int erpret this result as normal/abnormal . [facility] HospitalSimhnotHUMPBGFZDG1878-70-81 19:24:00 Test Item Value Reference Range Interpretation Comments Lymphocytes (test code = Lymphocytes) 24.5 20.0-40.0 [facility] HospitalVuhlmncARDNZLTFTG5622-68-32 19:24:00 Test Item Value Reference Range Interpretation Comments Segs (test code = Segs) 71.8 45.0-75.0 [facility] Hospit[id number] 19:24:00 Test Item Value Reference Range Interpretation Comments Basophils (test code = 0.6 See_Comment [Aut omated message] The Basophils) system which ge nerated this result tra nsmitted reference range : <=1.0. The reference r ozzy was not used to int erpret this result as normal/abnormal . [facility] HospitalUzegvueQOQMXIIGQL7646-42-10 19:24:00 Test Item Value Reference Range Interpretation Comments Monocytes (test code = Monocytes) 1.5 2.0-12.0 [facility] HospitalCxqkdxkFNJGXSSFGF9279-03-50 19:24:00 Test Item Value Reference Range Interpretation Comments Eosinophils (test code = 1.6 See_Comment [A utomated message] The Eosinophils) system which ge nerated this result tra nsmitted reference range : <=4.0. The reference r ozzy was not used to int erpret this result as normal/abnormal . [facility] HospitalDvfmzmmAJIHTVXBLX1547-85-90 19:24:00 Test Item Value Reference Range Interpretation Comments Plt Morph (test code = Normal (08/24/14 1:24 Plt Morph) PM) [facility] AND [id number] 19:24:00 Test Item Value Reference Range Interpretation Comments UA Sq Epi (test code = UA Sq Occasional /LPF Epi) [facility] AND [id number] 19:24:00 Test Item Value Reference Range Interpretation Comments UA Bacteria (test code = UA Occasional /HPF Bacteria) [facility] AND [id number] 19:24:00 Test Item Value Reference Range Interpretation Comments UA Mucus (test code = None Seen (08/24/14 UA Mucus) 1:24 PM) [facility] AND [id number] 19:24:00 Test Item Value Reference Range Interpretation Comments UA WBC (test code = UA WBC) 0-2 /HPF [facility] AND [id number] 19:24:00 Test Item Value Reference Range Interpretation Comments UA RBC (test code = 0-2 /HPF See_Comment [Automa gaye message] The UA RBC) system which ge nerated this result tra nsmitted reference range : <=2. The reference range was not used to interpr et this result as satish l/abnormal. [facility] AND [id number] 19:24:00 Test Item Value Reference Range Interpretation Comments UA Leuk Est (test Moderate *ABN*(08/24/14 code = UA Leuk Est) 1:24 PM) [facility] AND [id number] 19:24:00 Test Item Value Reference Range Interpretation Comments UA Nitrite (test code Negative (08/24/14 1:24 = UA Nitrite) PM) [facility] AND [id number] 19:24:00 Test Item Value Reference Range Interpretation Comments UA Urobilinogen (test code = UA 0.2 0.1-1.0 Urobilinogen) [facility] AND [id number] 19:24:00 Test Item Value Reference Range Interpretation Comments UA Ketones (test code Negative *NA*(08/24/14 = UA Ketones) 1:24 PM) [facility] AND [id number] 19:24:00 Test Item Value Reference Range Interpretation Comments UA Blood (test code = Negative (08/24/14 1:24 UA Blood) PM) [facility] AND [id number] 19:24:00 Test Item Value Reference Range Interpretation Comments UA Bili (test code = Negative *NA*(08/24/14 UA Bili) 1:24 PM) [facility] AND [id number] 19:24:00 Test Item Value Reference Range Interpretation Comments UA Color (test code = Yellow *NA*(08/24/14 UA Color) 1:24 PM) [facility] AND [id number] 19:24:00 Test Item Value Reference Range Interpretation Comments UA Glucose (test code Negative (08/24/14 1:24 = UA Glucose) PM) [facility] AND [id number] 19:24:00 Test Item Value Reference Range Interpretation Comments UA Protein (test code Negative (08/24/14 1:24 = UA Protein) PM) [facility] AND [id number] 19:24:00 Test Item Value Reference Range Interpretation Comments UA pH (test code = UA pH) 6.0 1 5.0-8.0 [facility] AND [id number] 19:24:00 Test Item Value Reference Range Interpretation Comments UA Spec Grav (test code *NA*(08/24/14 1:24 PM) = UA Spec Grav) [facility] AND [id number] 19:24:00 Test Item Value Reference Range Interpretation Comments UA Turbidity (test code = Clear (08/24/14 1:24 UA Turbidity) PM) [facility]2015-01-12 19:24:00 Test Item Value Reference Range Interpretation Comments Lipase Lvl (test code = Lipase Lvl) 104 73-393 [facility]2015-01-12 19:24:00 Test Item Value Reference Range Interpretation Comments eGFR (test code = eGFR) 109 [facility]2015-01-12 19:24:00 Test Item Value Reference Range Interpretation Comments Bili Total (test code = Bili Total) 0.6 0.2-1.3 [facility]2015-01-12 19:24:00 Test Item Value Reference Range Interpretation Comments Alk Phos (test code = Alk Phos) 72 39-136 [facility]2015-01-12 19:24:00 Test Item Value Reference Range Interpretation Comments Calcium Lvl (test code = Calcium Lvl) 8.8 8.5-10.5 [facility]2015-01-12 19:24:00 Test Item Value Reference Range Interpretation Comments CO2 (test code = CO2) 28 24-32 [facility]2015-01-12 19:24:00 Test Item Value Reference Range Interpretation Comments Chloride Lvl (test code = Chloride Lvl) 107 95-109 [facility]2015-01-12 19:24:00 Test Item Value Reference Range Interpretation Comments Potassium Lvl (test code = Potassium 3.9 3.5-5.1 Lvl) [facility]2015-01-12 19:24:00 Test Item Value Reference Range Interpretation Comments Glucose Lvl (test code = Glucose Lvl) 90 70-99 [place] [id number] 19:24:00 Test Item Value Reference Range Interpretation Comments Sodium Lvl (test code = Sodium Lvl) 138 135-145 [facility]2015-01-12 19:24:00 Test Item Value Reference Range Interpretation Comments BUN (test code = BUN) 7 7-22 [facility]2015-01-12 19:24:00 Test Item Value Reference Range Interpretation Comments Creatinine Lvl (test code = Creatinine 0.7 0.5-1.4 Lvl) [facility]2015-01-12 19:24:00 Test Item Value Reference Range Interpretation Comments ALT (test code = ALT) 23 See_Comment [Auto mated message] The system which ge nerated this result transmit gaye reference range : <=65. The reference range was not used to interpr et this result as satish l/abnormal. [facility]2015-01-12 19:24:00 Test Item Value Reference Range Interpretation Comments AST (test code = AST) 12 See_Comment [Auto mated message] The system which ge nerated this result transmit gaye reference range : <=37. The reference range was not used to interpr et this result as satish l/abnormal. [facility]2015-01-12 19:24:00 Test Item Value Reference Range Interpretation Comments Albumin Lvl (test code = Albumin Lvl) 3.8 3.5-5.0 [place] [id number] 19:24:00 Test Item Value Reference Range Interpretation Comments Total Protein (test code = Total 8.0 6.4-8.4 Protein) [facility]2015-01-12 19:24:00 Test Item Value Reference Range Interpretation Comments A/G Ratio (test code = A/G Ratio) 0.9 0.7-1.6 [facility]2015-01-12 19:24:00 Test Item Value Reference Range Interpretation Comments AGAP (test code = AGAP) 6.9 10.0-20.0 [facility] [id number] 19:24:00 Test Item Value Reference Range Interpretation Comments B/C Ratio (test code = B/C Ratio) 10 6-25 [facility] [id number] 19:24:00 Test Item Value Reference Range Interpretation Comments Globulin (test code = Globulin) 4.2 2.0-4.0 [id number] 19:24:00 Test Item Value Reference Range Interpretation Comments S Preg (test code = S Negative *NA*(08/24/14 Preg) 1:24 PM) [facility]xdjqofJWGIPTYKFL5378-48-97 19:24:00 Test Item Value Reference Range Interpretation Comments WBC (test code = WBC) 11.3 3.7-10.4 [facility] H[id number] 19:24:00 Test Item Value Reference Range Interpretation Comments RBC (test code = RBC) 4.75 4.20-5.40 [facility] HospitalPetiymhPZGNTBCWJJ0894-06-10 19:24:00 Test Item Value Reference Range Interpretation Comments Platelet (test code = Platelet) 402 133-450 [facility] HospitalEwolovuBSZANYVXML8808-06-83 19:24:00 Test Item Value Reference Range Interpretation Comments MCV (test code = MCV) 89.9 80.0-98.0 [facility] HospitalCsdxvrzLIDBZJDYHB2260-94-28 19:24:00 Test Item Value Reference Range Interpretation Comments Hct (test code = Hct) 42.7 36.0-48.0 [facility] HospitalGchmcloXIWRWQHVTS7741-56-58 19:24:00 Test Item Value Reference Range Interpretation Comments Hgb (test code = Hgb) 14.5 12.0-16.0 [facility] HospitalLumjmcnBEIVSEZXPF9050-57-06 19:24:00 Test Item Value Reference Range Interpretation Comments RDW (test code = RDW) 13.5 11.5-14.5 [facility] Hospit[id number] 19:24:00 Test Item Value Reference Range Interpretation Comments MCHC (test code = MCHC) 34.0 32.0-36.0 [facility] HospitalCkzjljeSQENUAEPSQ7819-85-30 19:24:00 Test Item Value Reference Range Interpretation Comments MCH (test code = MCH) 30.6 pg 27.0-31.0 [facility] HospitalUehqetnOUGNOZAGTL8572-61-51 19:24:00 Test Item Value Reference Range Interpretation Comments MPV (test code = MPV) 8.1 7.4-10.4 [facility] Ho[id number] 19:24:00 Test Item Value Reference Range Interpretation Comments Stomatocyte (test code = Stomatocyte) Slight [facility] Hospit[id number] 19:24:00 Test Item Value Reference Range Interpretation Comments Basophils # (test code 0.1 See_Comment [Aut omated message] The = Basophils #) system which generated this result tra nsmitted reference range : <=0.2. The reference r ozzy was not used to int erpret this result as normal/abnormal . [facility] HospitalFxqzzhqUHGSQHQIPR0555-97-44 19:24:00 Test Item Value Reference Range Interpretation Comments Eosinophils # (test code 0.2 See_Comment [A utomated message] The = Eosinophils #) system whic h generated this result tra nsmitted reference range : <=0.5. The reference r ozzy was not used to int erpret this result as normal/abnormal . [facility] HospitalJgfhrbcHFLFHRJGIB0876-56-76 19:24:00 Test Item Value Reference Range Interpretation Comments Hypochrom (test code = 1+ (08/24/14 1:24 PM) Hypochrom) [facility] Hospit[id number] 19:24:00 Test Item Value Reference Range Interpretation Comments Lymphocytes # (test code = Lymphocytes 2.8 1.0-5.5 #) [facility] Hospit[id number] 19:24:00 Test Item Value Reference Range Interpretation Comments Segs-Bands # (test code = Segs-Bands #) 8.1 1.5-8.1 [facility] HospitalKjyipolACMIBSGEYM1692-16-03 19:24:00 Test Item Value Reference Range Interpretation Comments Monocytes # (test code 0.2 See_Comment [Aut omated message] The = Monocytes #) system which generated this result tra nsmitted reference range : <=0.8. The reference r ozzy was not used to int erpret this result as normal/abnormal . [facility] HospitalWcgykdxZNHQGMOMAP5537-34-13 19:24:00 Test Item Value Reference Range Interpretation Comments Lymphocytes (test code = Lymphocytes) 24.5 20.0-40.0 [facility] HospitalPeypgfsRJSEFTVCBP6694-76-73 19:24:00 Test Item Value Reference Range Interpretation Comments Segs (test code = Segs) 71.8 45.0-75.0 [facility] HospitalXrtwtmkADIYVYHCNP2913-07-44 19:24:00 Test Item Value Reference Range Interpretation Comments Basophils (test code = 0.6 See_Comment [Aut omated message] The Basophils) system which ge nerated this result tra nsmitted reference range : <=1.0. The reference r ozzy was not used to int erpret this result as normal/abnormal . [facility] Hos[id number] 19:24:00 Test Item Value Reference Range Interpretation Comments Monocytes (test code = Monocytes) 1.5 2.0-12.0 [facility] Hospit[id number] 19:24:00 Test Item Value Reference Range Interpretation Comments Eosinophils (test code = 1.6 See_Comment [A utomated message] The Eosinophils) system which ge nerated this result tra nsmitted reference range : <=4.0. The reference r ozzy was not used to int erpret this result as normal/abnormal . [facility] HospitalMendhbhBFGUHULTRG8657-65-16 19:24:00 Test Item Value Reference Range Interpretation Comments Plt Morph (test code = Normal (08/24/14 1:24 Plt Morph) PM) [facility] AND [id number] 19:24:00 Test Item Value Reference Range Interpretation Comments UA Sq Epi (test code = UA Sq Occasional /LPF Epi) [facility] AND [id number] 19:24:00 Test Item Value Reference Range Interpretation Comments UA Bacteria (test code = UA Occasional /HPF Bacteria) [facility] AND [id number] 19:24:00 Test Item Value Reference Range Interpretation Comments UA Mucus (test code = None Seen (08/24/14 UA Mucus) 1:24 PM) [facility] AND [id number] 19:24:00 Test Item Value Reference Range Interpretation Comments UA WBC (test code = UA WBC) 0-2 /HPF [facility] AND [id number] 19:24:00 Test Item Value Reference Range Interpretation Comments UA RBC (test code = 0-2 /HPF See_Comment [Automa gaye message] The UA RBC) system which ge nerated this result tra nsmitted reference range : <=2. The reference range was not used to interpr et this result as satish l/abnormal. [facility] AND [id number] 19:24:00 Test Item Value Reference Range Interpretation Comments UA Leuk Est (test Moderate *ABN*(08/24/14 code = UA Leuk Est) 1:24 PM) [facility] AND [id number] 19:24:00 Test Item Value Reference Range Interpretation Comments UA Nitrite (test code Negative (08/24/14 1:24 = UA Nitrite) PM) [facility] AND [id number] 19:24:00 Test Item Value Reference Range Interpretation Comments UA Urobilinogen (test code = UA 0.2 0.1-1.0 Urobilinogen) [facility] AND [id number] 19:24:00 Test Item Value Reference Range Interpretation Comments UA Ketones (test code Negative *NA*(08/24/14 = UA Ketones) 1:24 PM) [facility] AND [id number] 19:24:00 Test Item Value Reference Range Interpretation Comments UA Blood (test code = Negative (08/24/14 1:24 UA Blood) PM) [facility] AND [id number] 19:24:00 Test Item Value Reference Range Interpretation Comments UA Bili (test code = Negative *NA*(08/24/14 UA Bili) 1:24 PM) [facility] AND [id number] 19:24:00 Test Item Value Reference Range Interpretation Comments UA Color (test code = Yellow *NA*(08/24/14 UA Color) 1:24 PM) [facility] AND [id number] 19:24:00 Test Item Value Reference Range Interpretation Comments UA Glucose (test code Negative (08/24/14 1:24 = UA Glucose) PM) [facility] AND [id number] 19:24:00 Test Item Value Reference Range Interpretation Comments UA Protein (test code Negative (08/24/14 1:24 = UA Protein) PM) [facility] AND [id number] 19:24:00 Test Item Value Reference Range Interpretation Comments UA pH (test code = UA pH) 6.0 1 5.0-8.0 [facility] AND [id number] 19:24:00 Test Item Value Reference Range Interpretation Comments UA Spec Grav (test code *NA*(08/24/14 1:24 PM) = UA Spec Grav) [facility] AND [id number] 19:24:00 Test Item Value Reference Range Interpretation Comments UA Turbidity (test code = Clear (08/24/14 1:24 UA Turbidity) PM) [facility]2015-01-12 19:24:00 Test Item Value Reference Range Interpretation Comments Lipase Lvl (test code = Lipase Lvl) 104 73-393 [facility]2015-01-12 19:24:00 Test Item Value Reference Range Interpretation Comments eGFR (test code = eGFR) 109 [facility]2015-01-12 19:24:00 Test Item Value Reference Range Interpretation Comments Bili Total (test code = Bili Total) 0.6 0.2-1.3 [facility]2015-01-12 19:24:00 Test Item Value Reference Range Interpretation Comments Alk Phos (test code = Alk Phos) 72 39-136 [facility]2015-01-12 19:24:00 Test Item Value Reference Range Interpretation Comments Calcium Lvl (test code = Calcium Lvl) 8.8 8.5-10.5 [facility]2015-01-12 19:24:00 Test Item Value Reference Range Interpretation Comments CO2 (test code = CO2) 28 24-32 [facility]2015-01-12 19:24:00 Test Item Value Reference Range Interpretation Comments Chloride Lvl (test code = Chloride Lvl) 107 95-109 [facility]2015-01-12 19:24:00 Test Item Value Reference Range Interpretation Comments Potassium Lvl (test code = Potassium 3.9 3.5-5.1 Lvl) [facility]2015-01-12 19:24:00 Test Item Value Reference Range Interpretation Comments Glucose Lvl (test code = Glucose Lvl) 90 70-99 [facility]2015-01-12 19:24:00 Test Item Value Reference Range Interpretation Comments Sodium Lvl (test code = Sodium Lvl) 138 135-145 [facility]2015-01-12 19:24:00 Test Item Value Reference Range Interpretation Comments BUN (test code = BUN) 7 7-22 [facility]2015-01-12 19:24:00 Test Item Value Reference Range Interpretation Comments Creatinine Lvl (test code = Creatinine 0.7 0.5-1.4 Lvl) [facility]2015-01-12 19:24:00 Test Item Value Reference Range Interpretation Comments ALT (test code = ALT) 23 See_Comment [Auto mated message] The system which ge nerated this result transmit gaye reference range : <=65. The reference range was not used to interpr et this result as satish l/abnormal. [facility]2015-01-12 19:24:00 Test Item Value Reference Range Interpretation Comments AST (test code = AST) 12 See_Comment [Auto mated message] The system which ge nerated this result transmit gaye reference range : <=37. The reference range was not used to interpr et this result as satish l/abnormal. [facility]2015-01-12 19:24:00 Test Item Value Reference Range Interpretation Comments Albumin Lvl (test code = Albumin Lvl) 3.8 3.5-5.0 [facility]2015-01-12 19:24:00 Test Item Value Reference Range Interpretation Comments Total Protein (test code = Total 8.0 6.4-8.4 Protein) [facility]2015-01-12 19:24:00 Test Item Value Reference Range Interpretation Comments A/G Ratio (test code = A/G Ratio) 0.9 0.7-1.6 [facility]2015-01-12 19:24:00 Test Item Value Reference Range Interpretation Comments AGAP (test code = AGAP) 6.9 10.0-20.0 [facility]iscoSouktelFORMERLY [id number] 19:24:00 Test Item Value Reference Range Interpretation Comments B/C Ratio (test code = B/C Ratio) 10 6-25 [facility]2015-01-12 19:24:00 Test Item Value Reference Range Interpretation Comments Globulin (test code = Globulin) 4.2 2.0-4.0 [facility] LufkinC[id number] 19:24:00 Test Item Value Reference Range Interpretation Comments S Preg (test code = S Negative *NA*(08/24/14 Preg) 1:24 PM) [facility]IudeseiQEXKGTRVKR3055-01-39 19:24:00 Test Item Value Reference Range Interpretation Comments WBC (test code = WBC) 11.3 3.7-10.4 [facility] H[id number] 19:24:00 Test Item Value Reference Range Interpretation Comments RBC (test code = RBC) 4.75 4.20-5.40 [facility] HospitalEzjaguaCMBEOHROTA3871-92-25 19:24:00 Test Item Value Reference Range Interpretation Comments Platelet (test code = Platelet) 402 133-450 [facility] HospitalCtmusbhDMDJJUQUFP0741-80-76 19:24:00 Test Item Value Reference Range Interpretation Comments MCV (test code = MCV) 89.9 80.0-98.0 [facility] HospitalChiakhdKGURDTKPES3507-74-94 19:24:00 Test Item Value Reference Range Interpretation Comments Hct (test code = Hct) 42.7 36.0-48.0 [facility] HospitalLnmxcqjRRAEKIXGHO2769-27-71 19:24:00 Test Item Value Reference Range Interpretation Comments Hgb (test code = Hgb) 14.5 12.0-16.0 [facility] HospitalNkanizfNKCANMCAAS0780-26-89 19:24:00 Test Item Value Reference Range Interpretation Comments RDW (test code = RDW) 13.5 11.5-14.5 [facility] HospitalQmxopivWDNDSJXZBO4343-04-38 19:24:00 Test Item Value Reference Range Interpretation Comments MCHC (test code = MCHC) 34.0 32.0-36.0 [facility] HospitalSyhopzvUBJZVEDTBG7191-41-37 19:24:00 Test Item Value Reference Range Interpretation Comments MCH (test code = MCH) 30.6 pg 27.0-31.0 [facility] HospitalQdubgbkCVEKUNBLIK2008-59-25 19:24:00 Test Item Value Reference Range Interpretation Comments MPV (test code = MPV) 8.1 7.4-10.4 [facility] HospitalXsjcbkmULZGCJMCRJ7388-32-72 19:24:00 Test Item Value Reference Range Interpretation Comments Stomatocyte (test code = Stomatocyte) Slight [facility] HospitalMdygoaeNVBUTSFJFK8900-90-63 19:24:00 Test Item Value Reference Range Interpretation Comments Basophils # (test code 0.1 See_Comment [Aut omated message] The = Basophils #) system which generated this result tra nsmitted reference range : <=0.2. The reference r ozzy was not used to int erpret this result as normal/abnormal . [facility] HospitalSvrntzaMDASZLJJEC4139-34-97 19:24:00 Test Item Value Reference Range Interpretation Comments Eosinophils # (test code 0.2 See_Comment [A utomated message] The = Eosinophils #) system whic h generated this result tra nsmitted reference range : <=0.5. The reference r ozzy was not used to int erpret this result as normal/abnormal . [facility] HospitalHyobmtcWCRQTJFYTP1174-90-11 19:24:00 Test Item Value Reference Range Interpretation Comments Hypochrom (test code = 1+ (08/24/14 1:24 PM) Hypochrom) [facility] HospitalNxuqdhlFDMWBHQZOB6881-40-13 19:24:00 Test Item Value Reference Range Interpretation Comments Lymphocytes # (test code = Lymphocytes 2.8 1.0-5.5 #) [facility] HospitalGugmusjBZUVQTMPSR7441-01-78 19:24:00 Test Item Value Reference Range Interpretation Comments Segs-Bands # (test code = Segs-Bands #) 8.1 1.5-8.1 [facility] HospitalReopdnbBLUQADVAEG2504-01-37 19:24:00 Test Item Value Reference Range Interpretation Comments Monocytes # (test code 0.2 See_Comment [Aut omated message] The = Monocytes #) system which generated this result tra nsmitted reference range : <=0.8. The reference r ozzy was not used to int erpret this result as normal/abnormal . [facility] HospitalGzbvfdlXBOWHSSSYH7856-80-70 19:24:00 Test Item Value Reference Range Interpretation Comments Lymphocytes (test code = Lymphocytes) 24.5 20.0-40.0 [facility] HospitalRwvtezoLLCYZRQNYL2270-21-43 19:24:00 Test Item Value Reference Range Interpretation Comments Segs (test code = Segs) 71.8 45.0-75.0 [facility] HospitalTwpdsusIJPYAPQQYV2295-01-76 19:24:00 Test Item Value Reference Range Interpretation Comments Basophils (test code = 0.6 See_Comment [Aut omated message] The Basophils) system which ge nerated this result tra nsmitted reference range : <=1.0. The reference r ozzy was not used to int erpret this result as normal/abnormal . [facility] HospitalZhmikneZIRAKLQZVG5426-06-84 19:24:00 Test Item Value Reference Range Interpretation Comments Monocytes (test code = Monocytes) 1.5 2.0-12.0 [facility] HospitalInrhyqqFUWQIPDNFZ3318-74-20 19:24:00 Test Item Value Reference Range Interpretation Comments Eosinophils (test code = 1.6 See_Comment [A utomated message] The Eosinophils) system which ge nerated this result tra nsmitted reference range : <=4.0. The reference r ozzy was not used to int erpret this result as normal/abnormal . [facility] HospitalKpblahaTEOWAOGAJM1613-82-97 19:24:00 Test Item Value Reference Range Interpretation Comments Plt Morph (test code = Normal (08/24/14 1:24 Plt Morph) PM) [facility] AND [id number] 19:24:00 Test Item Value Reference Range Interpretation Comments UA Sq Epi (test code = UA Sq Occasional /LPF Epi) [facility] AND [id number] 19:24:00 Test Item Value Reference Range Interpretation Comments UA Bacteria (test code = UA Occasional /HPF Bacteria) [facility] AND [id number] 19:24:00 Test Item Value Reference Range Interpretation Comments UA Mucus (test code = None Seen (08/24/14 UA Mucus) 1:24 PM) [facility] AND [id number] 19:24:00 Test Item Value Reference Range Interpretation Comments UA WBC (test code = UA WBC) 0-2 /HPF [facility] AND [id number] 19:24:00 Test Item Value Reference Range Interpretation Comments UA RBC (test code = 0-2 /HPF See_Comment [Automa gaye message] The UA RBC) system which ge nerated this result tra nsmitted reference range : <=2. The reference range was not used to interpr et this result as satish l/abnormal. [facility] AND [id number] 19:24:00 Test Item Value Reference Range Interpretation Comments UA Leuk Est (test Moderate *ABN*(08/24/14 code = UA Leuk Est) 1:24 PM) [facility] AND [id number] 19:24:00 Test Item Value Reference Range Interpretation Comments UA Nitrite (test code Negative (1/12/15 1:24 = UA Nitrite) PM) [facility] [id number] 19:24:00 Test Item Value Reference Range Interpretation Comments UA Urobilinogen (test code = UA 0.2 0.1-1.0 Urobilinogen) [facility] [id number] 19:24:00 Test Item Value Reference Range Interpretation Comments UA Ketones (test code Negative *NA*(08/24/14 = UA Ketones) 1:24 PM) [facility] [id number] 19:24:00 Test Item Value Reference Range Interpretation Comments UA Blood (test code = Negative (08/24/14 1:24 UA Blood) PM) [facility] [id number] 19:24:00 Test Item Value Reference Range Interpretation Comments UA Bili (test code = Negative *NA*(08/24/14 UA Bili) 1:24 PM) [facility] [id number] 19:24:00 Test Item Value Reference Range Interpretation Comments UA Color (test code = Yellow *NA*(08/24/14 UA Color) 1:24 PM) [facility] AND [id number] 19:24:00 Test Item Value Reference Range Interpretation Comments UA Glucose (test code Negative (08/24/14 1:24 = UA Glucose) PM) [facility] AND [id number] 19:24:00 Test Item Value Reference Range Interpretation Comments UA Protein (test code Negative (08/24/14 1:24 = UA Protein) PM) [facility] AND [id number] 19:24:00 Test Item Value Reference Range Interpretation Comments UA pH (test code = UA pH) 6.0 1 5.0-8.0 [facility] AND [id number] 19:24:00 Test Item Value Reference Range Interpretation Comments UA Spec Grav (test code *NA*(08/24/14 1:24 PM) = UA Spec Grav) [facility] AND [id number] 19:24:00 Test Item Value Reference Range Interpretation Comments UA Turbidity (test code = Clear (08/24/14 1:24 UA Turbidity) PM) [facility] [id number] 19:24:00 Test Item Value Reference Range Interpretation Comments Lipase Lvl (test code = Lipase Lvl) 104 73-393 [facility]2015-01-12 19:24:00 Test Item Value Reference Range Interpretation Comments eGFR (test code = eGFR) 109 [facility]2015-01-12 19:24:00 Test Item Value Reference Range Interpretation Comments Bili Total (test code = Bili Total) 0.6 0.2-1.3 [facility]2015-01-12 19:24:00 Test Item Value Reference Range Interpretation Comments Alk Phos (test code = Alk Phos) 72 39-136 [facility]2015-01-12 19:24:00 Test Item Value Reference Range Interpretation Comments Calcium Lvl (test code = Calcium Lvl) 8.8 8.5-10.5 [facility]2015-01-12 19:24:00 Test Item Value Reference Range Interpretation Comments CO2 (test code = CO2) 28 24-32 [facility]2015-01-12 19:24:00 Test Item Value Reference Range Interpretation Comments Chloride Lvl (test code = Chloride Lvl) 107 95-109 [facility]2015-01-12 19:24:00 Test Item Value Reference Range Interpretation Comments Potassium Lvl (test code = Potassium 3.9 3.5-5.1 Lvl) [facility]2015-01-12 19:24:00 Test Item Value Reference Range Interpretation Comments Glucose Lvl (test code = Glucose Lvl) 90 70-99 [facility]2015-01-12 19:24:00 Test Item Value Reference Range Interpretation Comments Sodium Lvl (test code = Sodium Lvl) 138 135-145 [facility]2015-01-12 19:24:00 Test Item Value Reference Range Interpretation Comments BUN (test code = BUN) 7 7-22 [facility]2015-01-12 19:24:00 Test Item Value Reference Range Interpretation Comments Creatinine Lvl (test code = Creatinine 0.7 0.5-1.4 Lvl) [facility]2015-01-12 19:24:00 Test Item Value Reference Range Interpretation Comments ALT (test code = ALT) 23 See_Comment [Auto mated message] The system which ge nerated this result transmit gaye reference range : <=65. The reference range was not used to interpr et this result as satish l/abnormal. [facility]2015-01-12 19:24:00 Test Item Value Reference Range Interpretation Comments AST (test code = AST) 12 See_Comment [Auto mated message] The system which ge nerated this result transmit gaye reference range : <=37. The reference range was not used to interpr et this result as satish l/abnormal. [facility]2015-01-12 19:24:00 Test Item Value Reference Range Interpretation Comments Albumin Lvl (test code = Albumin Lvl) 3.8 3.5-5.0 [facility]2015-01-12 19:24:00 Test Item Value Reference Range Interpretation Comments Total Protein (test code = Total 8.0 6.4-8.4 Protein) [facility]2015-01-12 19:24:00 Test Item Value Reference Range Interpretation Comments A/G Ratio (test code = A/G Ratio) 0.9 0.7-1.6 [facility]2015-01-12 19:24:00 Test Item Value Reference Range Interpretation Comments AGAP (test code = AGAP) 6.9 10.0-20.0 [facility]2015-01-12 19:24:00 Test Item Value Reference Range Interpretation Comments B/C Ratio (test code = B/C Ratio) 10 6-25 [facility]2015-01-12 19:24:00 Test Item Value Reference Range Interpretation Comments Globulin (test code = Globulin) 4.2 2.0-4.0 [id number] 19:24:00 Test Item Value Reference Range Interpretation Comments S Preg (test code = S Negative *NA*(08/24/14 Preg) 1:24 PM) [facility] HospitalJbaqiiaSLQEVQKKRT3872-04-72 19:24:00 Test Item Value Reference Range Interpretation Comments WBC (test code = WBC) 11.3 3.7-10.4 [facility] HospitalKvbriyqGFPRIOREZC8061-66-10 19:24:00 Test Item Value Reference Range Interpretation Comments RBC (test code = RBC) 4.75 4.20-5.40 [facility] HospitalKwnhhuhQFUVWFEIIF6895-93-32 19:24:00 Test Item Value Reference Range Interpretation Comments Platelet (test code = Platelet) 402 133-450 [facility] HospitalQknofhyTDETCQQQPL8630-12-52 19:24:00 Test Item Value Reference Range Interpretation Comments MCV (test code = MCV) 89.9 80.0-98.0 [facility] HospitalHvhiduuWPSLNBTDSJ6692-42-97 19:24:00 Test Item Value Reference Range Interpretation Comments Hct (test code = Hct) 42.7 36.0-48.0 [facility] HospitalLjjloymXKZVTZOVUG1988-40-03 19:24:00 Test Item Value Reference Range Interpretation Comments Hgb (test code = Hgb) 14.5 12.0-16.0 [facility] HospitalLefxjfcZVWQPSQDYV4592-83-71 19:24:00 Test Item Value Reference Range Interpretation Comments RDW (test code = RDW) 13.5 11.5-14.5 [facility] HospitalSqetrgfLMTCTFOUWL6264-25-11 19:24:00 Test Item Value Reference Range Interpretation Comments MCHC (test code = MCHC) 34.0 32.0-36.0 [facility] HospitalRjtjujzAJWDYKRAXJ9482-10-94 19:24:00 Test Item Value Reference Range Interpretation Comments MCH (test code = MCH) 30.6 pg 27.0-31.0 [facility] HospitalZjqauyvBCVBRNRLZX3790-06-74 19:24:00 Test Item Value Reference Range Interpretation Comments MPV (test code = MPV) 8.1 7.4-10.4 [facility] HospitalLvzetiaYDXRMZESBX8277-13-31 19:24:00 Test Item Value Reference Range Interpretation Comments Stomatocyte (test code = Stomatocyte) Slight [facility] Ho[id number] 19:24:00 Test Item Value Reference Range Interpretation Comments Basophils # (test code 0.1 See_Comment [Aut omated message] The = Basophils #) system which generated this result tra nsmitted reference range : <=0.2. The reference r ozzy was not used to int erpret this result as normal/abnormal . [facility] HospitalGinelhnFUAGQCDWQN0408-46-26 19:24:00 Test Item Value Reference Range Interpretation Comments Eosinophils # (test code 0.2 See_Comment [A utomated message] The = Eosinophils #) system whic h generated this result tra nsmitted reference range : <=0.5. The reference r ozzy was not used to int erpret this result as normal/abnormal . [facility] HospitalLdgnctkTVBBFKCDKE9433-12-75 19:24:00 Test Item Value Reference Range Interpretation Comments Hypochrom (test code = 1+ (08/24/14 1:24 PM) Hypochrom) [facility] HospitalVdrozjjVACCNATRIS1486-42-31 19:24:00 Test Item Value Reference Range Interpretation Comments Lymphocytes # (test code = Lymphocytes 2.8 1.0-5.5 #) [facility] HospitalTiftqrrOWUVDHXYZK0865-54-42 19:24:00 Test Item Value Reference Range Interpretation Comments Segs-Bands # (test code = Segs-Bands #) 8.1 1.5-8.1 [facility] Hos[id number] 19:24:00 Test Item Value Reference Range Interpretation Comments Monocytes # (test code 0.2 See_Comment [Aut omated message] The = Monocytes #) system which generated this result tra nsmitted reference range : <=0.8. The reference r ozzy was not used to int erpret this result as normal/abnormal . [facility] HospitalRugtxgvTZQEZNWCNK6148-11-44 19:24:00 Test Item Value Reference Range Interpretation Comments Lymphocytes (test code = Lymphocytes) 24.5 20.0-40.0 [facility] HospitalYcffuksVXELUITTLO9759-45-08 19:24:00 Test Item Value Reference Range Interpretation Comments Segs (test code = Segs) 71.8 45.0-75.0 [facility] HospitalZzlrnbdIZFFNCRBVW2471-86-30 19:24:00 Test Item Value Reference Range Interpretation Comments Basophils (test code = 0.6 See_Comment [Aut omated message] The Basophils) system which ge nerated this result tra nsmitted reference range : <=1.0. The reference r ozzy was not used to int erpret this result as normal/abnormal . [facility] HospitalIkvhndqKEFHYBAEBA9675-39-03 19:24:00 Test Item Value Reference Range Interpretation Comments Monocytes (test code = Monocytes) 1.5 2.0-12.0 [facility] HospitalEujnbigOVUPAIFIIN3586-04-42 19:24:00 Test Item Value Reference Range Interpretation Comments Eosinophils (test code = 1.6 See_Comment [A utomated message] The Eosinophils) system which ge nerated this result tra nsmitted reference range : <=4.0. The reference r ozzy was not used to int erpret this result as normal/abnormal . [facility]fieldZawaaizOIQGUQYBJF9508-98-32 19:24:00 Test Item Value Reference Range Interpretation Comments Plt Morph (test code = Normal (08/24/14 1:24 Plt Morph) PM) [facility] AND [id number] 19:24:00 Test Item Value Reference Range Interpretation Comments UA Sq Epi (test code = UA Sq Occasional /LPF Epi) [facility] AND [id number] 19:24:00 Test Item Value Reference Range Interpretation Comments UA Bacteria (test code = UA Occasional /HPF Bacteria) [facility] AND [id number] 19:24:00 Test Item Value Reference Range Interpretation Comments UA Mucus (test code = None Seen (08/24/14 UA Mucus) 1:24 PM) [facility] AND [id number] 19:24:00 Test Item Value Reference Range Interpretation Comments UA WBC (test code = UA WBC) 0-2 /HPF [facility] AND [id number] 19:24:00 Test Item Value Reference Range Interpretation Comments UA RBC (test code = 0-2 /HPF See_Comment [Automa gaye message] The UA RBC) system which ge nerated this result tra nsmitted reference range : <=2. The reference range was not used to interpr et this result as satish l/abnormal. [facility] AND [id number] 19:24:00 Test Item Value Reference Range Interpretation Comments UA Leuk Est (test Moderate *ABN*(08/24/14 code = UA Leuk Est) 1:24 PM) [facility] AND [id number] 19:24:00 Test Item Value Reference Range Interpretation Comments UA Nitrite (test code Negative (08/24/14 1:24 = UA Nitrite) PM) [facility] AND [id number] 19:24:00 Test Item Value Reference Range Interpretation Comments UA Urobilinogen (test code = UA 0.2 0.1-1.0 Urobilinogen) [facility] AND [id number] 19:24:00 Test Item Value Reference Range Interpretation Comments UA Ketones (test code Negative *NA*(08/24/14 = UA Ketones) 1:24 PM) [facility] AND [id number] 19:24:00 Test Item Value Reference Range Interpretation Comments UA Blood (test code = Negative (08/24/14 1:24 UA Blood) PM) [facility] AND [id number] 19:24:00 Test Item Value Reference Range Interpretation Comments UA Bili (test code = Negative *NA*(08/24/14 UA Bili) 1:24 PM) [facility] AND [id number] 19:24:00 Test Item Value Reference Range Interpretation Comments UA Color (test code = Yellow *NA*(08/24/14 UA Color) 1:24 PM) [facility] AND [id number] 19:24:00 Test Item Value Reference Range Interpretation Comments UA Glucose (test code Negative (08/24/14 1:24 = UA Glucose) PM) [facility] AND [id number] 19:24:00 Test Item Value Reference Range Interpretation Comments UA Protein (test code Negative (08/24/14 1:24 = UA Protein) PM) [facility] AND [id number] 19:24:00 Test Item Value Reference Range Interpretation Comments UA pH (test code = UA pH) 6.0 1 5.0-8.0 [facility] AND [id number] 19:24:00 Test Item Value Reference Range Interpretation Comments UA Spec Grav (test code *NA*(08/24/14 1:24 PM) = UA Spec Grav) [facility] AND [id number] 19:24:00 Test Item Value Reference Range Interpretation Comments UA Turbidity (test code = Clear (08/24/14 1:24 UA Turbidity) PM) [facility] [id number] 19:24:00 Test Item Value Reference Range Interpretation Comments Lipase Lvl (test code = Lipase Lvl) 104 73-393 [facility] [id number] 19:24:00 Test Item Value Reference Range Interpretation Comments eGFR (test code = eGFR) 109 [facility]2015-01-12 19:24:00 Test Item Value Reference Range Interpretation Comments Bili Total (test code = Bili Total) 0.6 0.2-1.3 [facility]2015-01-12 19:24:00 Test Item Value Reference Range Interpretation Comments Alk Phos (test code = Alk Phos) 72 39-136 [facility]2015-01-12 19:24:00 Test Item Value Reference Range Interpretation Comments Calcium Lvl (test code = Calcium Lvl) 8.8 8.5-10.5 [facility]2015-01-12 19:24:00 Test Item Value Reference Range Interpretation Comments CO2 (test code = CO2) 28 24-32 [place] [id number] 19:24:00 Test Item Value Reference Range Interpretation Comments Chloride Lvl (test code = Chloride Lvl) 107 95-109 [facility]2015-01-12 19:24:00 Test Item Value Reference Range Interpretation Comments Potassium Lvl (test code = Potassium 3.9 3.5-5.1 Lvl) [facility]2015-01-12 19:24:00 Test Item Value Reference Range Interpretation Comments Glucose Lvl (test code = Glucose Lvl) 90 70-99 [facility]2015-01-12 19:24:00 Test Item Value Reference Range Interpretation Comments Sodium Lvl (test code = Sodium Lvl) 138 135-145 [facility]2015-01-12 19:24:00 Test Item Value Reference Range Interpretation Comments BUN (test code = BUN) 7 7-22 [facility]2015-01-12 19:24:00 Test Item Value Reference Range Interpretation Comments Creatinine Lvl (test code = Creatinine 0.7 0.5-1.4 Lvl) [facility]2015-01-12 19:24:00 Test Item Value Reference Range Interpretation Comments ALT (test code = ALT) 23 See_Comment [Auto mated message] The system which ge nerated this result transmit gaye reference range : <=65. The reference range was not used to interpr et this result as satish l/abnormal. [facility]2015-01-12 19:24:00 Test Item Value Reference Range Interpretation Comments AST (test code = AST) 12 See_Comment [Auto mated message] The system which ge nerated this result transmit gaye reference range : <=37. The reference range was not used to interpr et this result as satish l/abnormal. [place] [id number] 19:24:00 Test Item Value Reference Range Interpretation Comments Albumin Lvl (test code = Albumin Lvl) 3.8 3.5-5.0 [facility]2015-01-12 19:24:00 Test Item Value Reference Range Interpretation Comments Total Protein (test code = Total 8.0 6.4-8.4 Protein) [facility]2015-01-12 19:24:00 Test Item Value Reference Range Interpretation Comments A/G Ratio (test code = A/G Ratio) 0.9 0.7-1.6 [facility]2015-01-12 19:24:00 Test Item Value Reference Range Interpretation Comments AGAP (test code = AGAP) 6.9 10.0-20.0 [facility]2015-01-12 19:24:00 Test Item Value Reference Range Interpretation Comments B/C Ratio (test code = B/C Ratio) 10 6-25 [facility]2015-01-12 19:24:00 Test Item Value Reference Range Interpretation Comments Globulin (test code = Globulin) 4.2 2.0-4.0 [facility]abDNGJKYZEWTQME3640-15-81 19:24:00 Test Item Value Reference Range Interpretation Comments S Preg (test code = S Negative *NA*(08/24/14 Preg) 1:24 PM) [facility]TipkaysSTINYBNYQE6033-11-28 19:24:00 Test Item Value Reference Range Interpretation Comments WBC (test code = WBC) 11.3 3.7-10.4 [facility] HospitalDadayjnYUNQIESQYV9398-21-78 19:24:00 Test Item Value Reference Range Interpretation Comments RBC (test code = RBC) 4.75 4.20-5.40 [facility] HospitalMucfmwfMCFRHNHMNY6882-25-03 19:24:00 Test Item Value Reference Range Interpretation Comments Platelet (test code = Platelet) 402 133-450 [facility] HospitalOmuamzqXCUZKHIFIB4740-96-52 19:24:00 Test Item Value Reference Range Interpretation Comments MCV (test code = MCV) 89.9 80.0-98.0 [facility] HospitalLwifgkoPPSRWXNUQV7374-62-44 19:24:00 Test Item Value Reference Range Interpretation Comments Hct (test code = Hct) 42.7 36.0-48.0 [facility] HospitalUchustnUWLCZUDYFS4920-14-00 19:24:00 Test Item Value Reference Range Interpretation Comments Hgb (test code = Hgb) 14.5 12.0-16.0 [facility] HospitalPdcsyxhNOIMEJWNNY7335-65-41 19:24:00 Test Item Value Reference Range Interpretation Comments RDW (test code = RDW) 13.5 11.5-14.5 [facility] HospitalAuprtthOBQOGMBKNH6174-78-92 19:24:00 Test Item Value Reference Range Interpretation Comments MCHC (test code = MCHC) 34.0 32.0-36.0 [facility] HospitalBzdfyziOUZEFYFKYB1466-99-58 19:24:00 Test Item Value Reference Range Interpretation Comments MCH (test code = MCH) 30.6 pg 27.0-31.0 [facility] HospitalPerhlmbISMDQRTLOQ8986-36-31 19:24:00 Test Item Value Reference Range Interpretation Comments MPV (test code = MPV) 8.1 7.4-10.4 [facility] Hospit[id number] 19:24:00 Test Item Value Reference Range Interpretation Comments Stomatocyte (test code = Stomatocyte) Slight [facility] HospitalFqzpnmgATPNAUIDJD5168-78-17 19:24:00 Test Item Value Reference Range Interpretation Comments Basophils # (test code 0.1 See_Comment [Aut omated message] The = Basophils #) system which generated this result tra nsmitted reference range : <=0.2. The reference r ozzy was not used to int erpret this result as normal/abnormal . [facility] HospitalOzyeobqCQHKELFUXE1764-29-28 19:24:00 Test Item Value Reference Range Interpretation Comments Eosinophils # (test code 0.2 See_Comment [A utomated message] The = Eosinophils #) system whic h generated this result tra nsmitted reference range : <=0.5. The reference r ozzy was not used to int erpret this result as normal/abnormal . [facility] HospitalIszonvxKLHDRUYNVM8450-52-32 19:24:00 Test Item Value Reference Range Interpretation Comments Hypochrom (test code = 1+ (08/24/14 1:24 PM) Hypochrom) [facility] HospitalIcunuydOHPSIIMSZS0912-03-69 19:24:00 Test Item Value Reference Range Interpretation Comments Lymphocytes # (test code = Lymphocytes 2.8 1.0-5.5 #) [facility] HospitalZedfzfnIPLCEYXVDE4418-79-56 19:24:00 Test Item Value Reference Range Interpretation Comments Segs-Bands # (test code = Segs-Bands #) 8.1 1.5-8.1 [facility] HospitalSnotfhvQSMNIHKSCM8361-93-93 19:24:00 Test Item Value Reference Range Interpretation Comments Monocytes # (test code 0.2 See_Comment [Aut omated message] The = Monocytes #) system which generated this result tra nsmitted reference range : <=0.8. The reference r ozzy was not used to int erpret this result as normal/abnormal . [facility] HospitalGdpttknCFAAEGSBJJ5129-83-49 19:24:00 Test Item Value Reference Range Interpretation Comments Lymphocytes (test code = Lymphocytes) 24.5 20.0-40.0 [facility] Hospit[id number] 19:24:00 Test Item Value Reference Range Interpretation Comments Segs (test code = Segs) 71.8 45.0-75.0 [facility] HospitalRihvymaGAXOLZCYIK6883-84-08 19:24:00 Test Item Value Reference Range Interpretation Comments Basophils (test code = 0.6 See_Comment [Aut omated message] The Basophils) system which ge nerated this result tra nsmitted reference range : <=1.0. The reference r ozzy was not used to int erpret this result as normal/abnormal . [facility] HospitalMonbhcuYEDYKWMJCP1761-74-18 19:24:00 Test Item Value Reference Range Interpretation Comments Monocytes (test code = Monocytes) 1.5 2.0-12.0 [facility] HospitalUblsinrOANKXJNLDB6597-72-02 19:24:00 Test Item Value Reference Range Interpretation Comments Eosinophils (test code = 1.6 See_Comment [A utomated message] The Eosinophils) system which ge nerated this result tra nsmitted reference range : <=4.0. The reference r ozzy was not used to int erpret this result as normal/abnormal . [facility] HospitalMekpuicLUBQSBGMSJ2262-04-68 19:24:00 Test Item Value Reference Range Interpretation Comments Plt Morph (test code = Normal (08/24/14 1:24 Plt Morph) PM) [facility] AND [id number] 19:24:00 Test Item Value Reference Range Interpretation Comments UA Sq Epi (test code = UA Sq Occasional /LPF Epi) [facility] AND [id number] 19:24:00 Test Item Value Reference Range Interpretation Comments UA Bacteria (test code = UA Occasional /HPF Bacteria) [facility] AND [id number] 19:24:00 Test Item Value Reference Range Interpretation Comments UA Mucus (test code = None Seen (08/24/14 UA Mucus) 1:24 PM) [facility] AND [id number] 19:24:00 Test Item Value Reference Range Interpretation Comments UA WBC (test code = UA WBC) 0-2 /HPF [facility] AND [id number] 19:24:00 Test Item Value Reference Range Interpretation Comments UA RBC (test code = 0-2 /HPF See_Comment [Automa gaye message] The UA RBC) system which ge nerated this result tra nsmitted reference range : <=2. The reference range was not used to interpr et this result as satish l/abnormal. [facility] AND [id number] 19:24:00 Test Item Value Reference Range Interpretation Comments UA Leuk Est (test Moderate *ABN*(08/24/14 code = UA Leuk Est) 1:24 PM) [facility] AND [id number] 19:24:00 Test Item Value Reference Range Interpretation Comments UA Nitrite (test code Negative (08/24/14 1:24 = UA Nitrite) PM) [facility] AND [id number] 19:24:00 Test Item Value Reference Range Interpretation Comments UA Urobilinogen (test code = UA 0.2 0.1-1.0 Urobilinogen) [facility] AND [id number] 19:24:00 Test Item Value Reference Range Interpretation Comments UA Ketones (test code Negative *NA*(08/24/14 = UA Ketones) 1:24 PM) [facility] AND [id number] 19:24:00 Test Item Value Reference Range Interpretation Comments UA Blood (test code = Negative (08/24/14 1:24 UA Blood) PM) [facility] AND [id number] 19:24:00 Test Item Value Reference Range Interpretation Comments UA Bili (test code = Negative *NA*(08/24/14 UA Bili) 1:24 PM) [facility] AND [id number] 19:24:00 Test Item Value Reference Range Interpretation Comments UA Color (test code = Yellow *NA*(08/24/14 UA Color) 1:24 PM) [facility] AND [id number] 19:24:00 Test Item Value Reference Range Interpretation Comments UA Glucose (test code Negative (08/24/14 1:24 = UA Glucose) PM) [facility] AND [id number] 19:24:00 Test Item Value Reference Range Interpretation Comments UA Protein (test code Negative (08/24/14 1:24 = UA Protein) PM) [facility] AND [id number] 19:24:00 Test Item Value Reference Range Interpretation Comments UA pH (test code = UA pH) 6.0 1 5.0-8.0 [facility] AND [id number] 19:24:00 Test Item Value Reference Range Interpretation Comments UA Spec Grav (test code *NA*(08/24/14 1:24 PM) = UA Spec Grav) [facility] AND [id number] 19:24:00 Test Item Value Reference Range Interpretation Comments UA Turbidity (test code = Clear (08/24/14 1:24 UA Turbidity) PM) [facility]2015-01-12 19:24:00 Test Item Value Reference Range Interpretation Comments Lipase Lvl (test code = Lipase Lvl) 104 73-393 [facility]2015-01-12 19:24:00 Test Item Value Reference Range Interpretation Comments eGFR (test code = eGFR) 109 [facility]2015-01-12 19:24:00 Test Item Value Reference Range Interpretation Comments Bili Total (test code = Bili Total) 0.6 0.2-1.3 [facility]2015-01-12 19:24:00 Test Item Value Reference Range Interpretation Comments Alk Phos (test code = Alk Phos) 72 39-136 [facility]2015-01-12 19:24:00 Test Item Value Reference Range Interpretation Comments Calcium Lvl (test code = Calcium Lvl) 8.8 8.5-10.5 [facility]2015-01-12 19:24:00 Test Item Value Reference Range Interpretation Comments CO2 (test code = CO2) 28 24-32 [facility]2015-01-12 19:24:00 Test Item Value Reference Range Interpretation Comments Chloride Lvl (test code = Chloride Lvl) 107 95-109 [facility]2015-01-12 19:24:00 Test Item Value Reference Range Interpretation Comments Potassium Lvl (test code = Potassium 3.9 3.5-5.1 Lvl) [facility]2015-01-12 19:24:00 Test Item Value Reference Range Interpretation Comments Glucose Lvl (test code = Glucose Lvl) 90 70-99 [facility]2015-01-12 19:24:00 Test Item Value Reference Range Interpretation Comments Sodium Lvl (test code = Sodium Lvl) 138 135-145 [facility]2015-01-12 19:24:00 Test Item Value Reference Range Interpretation Comments BUN (test code = BUN) 7 7-22 [facility]2015-01-12 19:24:00 Test Item Value Reference Range Interpretation Comments Creatinine Lvl (test code = Creatinine 0.7 0.5-1.4 Lvl) [facility]2015-01-12 19:24:00 Test Item Value Reference Range Interpretation Comments ALT (test code = ALT) 23 See_Comment [Auto mated message] The system which ge nerated this result transmit gaye reference range : <=65. The reference range was not used to interpr et this result as satish l/abnormal. [facility]2015-01-12 19:24:00 Test Item Value Reference Range Interpretation Comments AST (test code = AST) 12 See_Comment [Auto mated message] The system which ge nerated this result transmit gaye reference range : <=37. The reference range was not used to interpr et this result as satish l/abnormal. [facility]2015-01-12 19:24:00 Test Item Value Reference Range Interpretation Comments Albumin Lvl (test code = Albumin Lvl) 3.8 3.5-5.0 [facility]2015-01-12 19:24:00 Test Item Value Reference Range Interpretation Comments Total Protein (test code = Total 8.0 6.4-8.4 Protein) [facility]2015-01-12 19:24:00 Test Item Value Reference Range Interpretation Comments A/G Ratio (test code = A/G Ratio) 0.9 0.7-1.6 [facility]2015-01-12 19:24:00 Test Item Value Reference Range Interpretation Comments AGAP (test code = AGAP) 6.9 10.0-20.0 [facility] [id number] 19:24:00 Test Item Value Reference Range Interpretation Comments B/C Ratio (test code = B/C Ratio) 10 6-25 [facility] [id number] 19:24:00 Test Item Value Reference Range Interpretation Comments Globulin (test code = Globulin) 4.2 2.0-4.0 [facility]Y[id number] 19:24:00 Test Item Value Reference Range Interpretation Comments S Preg (test code = S Negative *NA*(08/24/14 Preg) 1:24 PM) [id number] 19:24:00 Test Item Value Reference Range Interpretation Comments WBC (test code = WBC) 11.3 3.7-10.4 [facility] Hos[id number] 19:24:00 Test Item Value Reference Range Interpretation Comments RBC (test code = RBC) 4.75 4.20-5.40 [facility] Hos[id number] 19:24:00 Test Item Value Reference Range Interpretation Comments Platelet (test code = Platelet) 402 133-450 [facility] Hospit[id number] 19:24:00 Test Item Value Reference Range Interpretation Comments MCV (test code = MCV) 89.9 80.0-98.0 [facility] HospitalCtgagclIOQNVIIPSR1340-60-23 19:24:00 Test Item Value Reference Range Interpretation Comments Hct (test code = Hct) 42.7 36.0-48.0 [facility] Hos[id number] 19:24:00 Test Item Value Reference Range Interpretation Comments Hgb (test code = Hgb) 14.5 12.0-16.0 [facility] HospitalMkzbakvEUWWIIDVEZ7012-94-74 19:24:00 Test Item Value Reference Range Interpretation Comments RDW (test code = RDW) 13.5 11.5-14.5 [facility] Hospit[id number] 19:24:00 Test Item Value Reference Range Interpretation Comments MCHC (test code = MCHC) 34.0 32.0-36.0 [facility] Hospit[id number] 19:24:00 Test Item Value Reference Range Interpretation Comments MCH (test code = MCH) 30.6 pg 27.0-31.0 [facility] Hospit[id number] 19:24:00 Test Item Value Reference Range Interpretation Comments MPV (test code = MPV) 8.1 7.4-10.4 [facility] Hos[id number] 19:24:00 Test Item Value Reference Range Interpretation Comments Stomatocyte (test code = Stomatocyte) Slight [facility] HospitalOwfymdaFRWDYTOZWQ4006-83-19 19:24:00 Test Item Value Reference Range Interpretation Comments Basophils # (test code 0.1 See_Comment [Aut omated message] The = Basophils #) system which generated this result tra nsmitted reference range : <=0.2. The reference r ozzy was not used to int erpret this result as normal/abnormal . [facility] HospitalKwgqdfgGYDQPJDVJM7028-34-64 19:24:00 Test Item Value Reference Range Interpretation Comments Eosinophils # (test code 0.2 See_Comment [A utomated message] The = Eosinophils #) system whic h generated this result tra nsmitted reference range : <=0.5. The reference r ozzy was not used to int erpret this result as normal/abnormal . [facility] HospitalXdpxhmmQXZCQKKZCM1631-83-03 19:24:00 Test Item Value Reference Range Interpretation Comments Hypochrom (test code = 1+ (08/24/14 1:24 PM) Hypochrom) [facility] HospitalEsrqlqxXVNOIJZVRX0690-86-11 19:24:00 Test Item Value Reference Range Interpretation Comments Lymphocytes # (test code = Lymphocytes 2.8 1.0-5.5 #) [facility] H[id number] 19:24:00 Test Item Value Reference Range Interpretation Comments Segs-Bands # (test code = Segs-Bands #) 8.1 1.5-8.1 [facility] HospitalZzabeccKQDBFTRPEB2519-96-65 19:24:00 Test Item Value Reference Range Interpretation Comments Monocytes # (test code 0.2 See_Comment [Aut omated message] The = Monocytes #) system which generated this result tra nsmitted reference range : <=0.8. The reference r ozzy was not used to int erpret this result as normal/abnormal . [facility] HospitalQeeuckmTEBPROOZCP6239-07-42 19:24:00 Test Item Value Reference Range Interpretation Comments Lymphocytes (test code = Lymphocytes) 24.5 20.0-40.0 [facility] HospitalYkdxvmoXCTQIQXLPC6490-21-00 19:24:00 Test Item Value Reference Range Interpretation Comments Segs (test code = Segs) 71.8 45.0-75.0 [facility] HospitalCqyyabeWFEDSWGIEF5466-99-79 19:24:00 Test Item Value Reference Range Interpretation Comments Basophils (test code = 0.6 See_Comment [Aut omated message] The Basophils) system which ge nerated this result tra nsmitted reference range : <=1.0. The reference r ozzy was not used to int erpret this result as normal/abnormal . [facility] Hospit[id number] 19:24:00 Test Item Value Reference Range Interpretation Comments Monocytes (test code = Monocytes) 1.5 2.0-12.0 [facility] HospitalOqucqkaFZJWEDXRRH5573-16-97 19:24:00 Test Item Value Reference Range Interpretation Comments Eosinophils (test code = 1.6 See_Comment [A utomated message] The Eosinophils) system which ge nerated this result tra nsmitted reference range : <=4.0. The reference r ozzy was not used to int erpret this result as normal/abnormal . [facility] HospitalZpsmtkkTJOSJTIFRN5540-59-73 19:24:00 Test Item Value Reference Range Interpretation Comments Plt Morph (test code = Normal (08/24/14 1:24 Plt Morph) PM) [facility] AND [id number] 19:24:00 Test Item Value Reference Range Interpretation Comments UA Sq Epi (test code = UA Sq Occasional /LPF Epi) [facility] AND [id number] 19:24:00 Test Item Value Reference Range Interpretation Comments UA Bacteria (test code = UA Occasional /HPF Bacteria) [facility] AND [id number] 19:24:00 Test Item Value Reference Range Interpretation Comments UA Mucus (test code = None Seen (08/24/14 UA Mucus) 1:24 PM) [facility] AND [id number] 19:24:00 Test Item Value Reference Range Interpretation Comments UA WBC (test code = UA WBC) 0-2 /HPF [facility] AND [id number] 19:24:00 Test Item Value Reference Range Interpretation Comments UA RBC (test code = 0-2 /HPF See_Comment [Automa gaye message] The UA RBC) system which ge nerated this result tra nsmitted reference range : <=2. The reference range was not used to interpr et this result as satish l/abnormal. [facility] AND [id number] 19:24:00 Test Item Value Reference Range Interpretation Comments UA Leuk Est (test Moderate *ABN*(08/24/14 code = UA Leuk Est) 1:24 PM) [facility] AND [id number] 19:24:00 Test Item Value Reference Range Interpretation Comments UA Nitrite (test code Negative (08/24/14 1:24 = UA Nitrite) PM) [facility] AND [id number] 19:24:00 Test Item Value Reference Range Interpretation Comments UA Urobilinogen (test code = UA 0.2 0.1-1.0 Urobilinogen) [facility] AND [id number] 19:24:00 Test Item Value Reference Range Interpretation Comments UA Ketones (test code Negative *NA*(08/24/14 = UA Ketones) 1:24 PM) [facility] AND [id number] 19:24:00 Test Item Value Reference Range Interpretation Comments UA Blood (test code = Negative (08/24/14 1:24 UA Blood) PM) [facility] AND [id number] 19:24:00 Test Item Value Reference Range Interpretation Comments UA Bili (test code = Negative *NA*(08/24/14 UA Bili) 1:24 PM) [facility] AND [id number] 19:24:00 Test Item Value Reference Range Interpretation Comments UA Color (test code = Yellow *NA*(08/24/14 UA Color) 1:24 PM) [facility] AND [id number] 19:24:00 Test Item Value Reference Range Interpretation Comments UA Glucose (test code Negative (08/24/14 1:24 = UA Glucose) PM) [facility] AND [id number] 19:24:00 Test Item Value Reference Range Interpretation Comments UA Protein (test code Negative (08/24/14 1:24 = UA Protein) PM) [facility] AND [id number] 19:24:00 Test Item Value Reference Range Interpretation Comments UA pH (test code = UA pH) 6.0 1 5.0-8.0 [facility] AND [id number] 19:24:00 Test Item Value Reference Range Interpretation Comments UA Spec Grav (test code *NA*(08/24/14 1:24 PM) = UA Spec Grav) [facility] AND [id number] 19:24:00 Test Item Value Reference Range Interpretation Comments UA Turbidity (test code = Clear (08/24/14 1:24 UA Turbidity) PM) [facility]2015-01-12 19:24:00 Test Item Value Reference Range Interpretation Comments Lipase Lvl (test code = Lipase Lvl) 104 73-393 [facility]2015-01-12 19:24:00 Test Item Value Reference Range Interpretation Comments eGFR (test code = eGFR) 109 [facility]2015-01-12 19:24:00 Test Item Value Reference Range Interpretation Comments Bili Total (test code = Bili Total) 0.6 0.2-1.3 [facility]2015-01-12 19:24:00 Test Item Value Reference Range Interpretation Comments Alk Phos (test code = Alk Phos) 72 39-136 [facility]2015-01-12 19:24:00 Test Item Value Reference Range Interpretation Comments Calcium Lvl (test code = Calcium Lvl) 8.8 8.5-10.5 [facility]2015-01-12 19:24:00 Test Item Value Reference Range Interpretation Comments CO2 (test code = CO2) 28 24-32 [facility]2015-01-12 19:24:00 Test Item Value Reference Range Interpretation Comments Chloride Lvl (test code = Chloride Lvl) 107 95-109 [facility]2015-01-12 19:24:00 Test Item Value Reference Range Interpretation Comments Potassium Lvl (test code = Potassium 3.9 3.5-5.1 Lvl) [facility]2015-01-12 19:24:00 Test Item Value Reference Range Interpretation Comments Glucose Lvl (test code = Glucose Lvl) 90 70-99 [facility]2015-01-12 19:24:00 Test Item Value Reference Range Interpretation Comments Sodium Lvl (test code = Sodium Lvl) 138 135-145 [facility]2015-01-12 19:24:00 Test Item Value Reference Range Interpretation Comments BUN (test code = BUN) 7 7-22 [facility]2015-01-12 19:24:00 Test Item Value Reference Range Interpretation Comments Creatinine Lvl (test code = Creatinine 0.7 0.5-1.4 Lvl) [facility]2015-01-12 19:24:00 Test Item Value Reference Range Interpretation Comments ALT (test code = ALT) 23 See_Comment [Auto mated message] The system which ge nerated this result transmit gaye reference range : <=65. The reference range was not used to interpr et this result as satish l/abnormal. [facility]2015-01-12 19:24:00 Test Item Value Reference Range Interpretation Comments AST (test code = AST) 12 See_Comment [Auto mated message] The system which ge nerated this result transmit gaye reference range : <=37. The reference range was not used to interpr et this result as satish l/abnormal. [facility]2015-01-12 19:24:00 Test Item Value Reference Range Interpretation Comments Albumin Lvl (test code = Albumin Lvl) 3.8 3.5-5.0 [facility]2015-01-12 19:24:00 Test Item Value Reference Range Interpretation Comments Total Protein (test code = Total 8.0 6.4-8.4 Protein) [facility]2015-01-12 19:24:00 Test Item Value Reference Range Interpretation Comments A/G Ratio (test code = A/G Ratio) 0.9 0.7-1.6 [facility]2015-01-12 19:24:00 Test Item Value Reference Range Interpretation Comments AGAP (test code = AGAP) 6.9 10.0-20.0 [facility]2015-01-12 19:24:00 Test Item Value Reference Range Interpretation Comments B/C Ratio (test code = B/C Ratio) 10 6-25 [facility]2015-01-12 19:24:00 Test Item Value Reference Range Interpretation Comments Globulin (test code = Globulin) 4.2 2.0-4.0 [id number] 19:24:00 Test Item Value Reference Range Interpretation Comments S Preg (test code = S Negative *NA*(08/24/14 Preg) 1:24 PM) [id number] 19:24:00 Test Item Value Reference Range Interpretation Comments WBC (test code = WBC) 11.3 3.7-10.4 [id number] 19:24:00 Test Item Value Reference Range Interpretation Comments RBC (test code = RBC) 4.75 4.20-5.40 [facility]ZtsbbixAYAXBGFQKG0060-59-54 19:24:00 Test Item Value Reference Range Interpretation Comments Platelet (test code = Platelet) 402 133-450 [facility]NhzwyrrIGXLGCYYPS1169-98-22 19:24:00 Test Item Value Reference Range Interpretation Comments MCV (test code = MCV) 89.9 80.0-98.0 [facility]EdibrciVGNRYZKTVH5326-16-86 19:24:00 Test Item Value Reference Range Interpretation Comments Hct (test code = Hct) 42.7 36.0-48.0 [facility]MbvbpcoJTCNXWZGVD8941-26-46 19:24:00 Test Item Value Reference Range Interpretation Comments Hgb (test code = Hgb) 14.5 12.0-16.0 [facility] HospitalCdsrgwfWKLHAHBRCN0379-18-03 19:24:00 Test Item Value Reference Range Interpretation Comments RDW (test code = RDW) 13.5 11.5-14.5 [facility]NresplmJUFWSYXHNP1415-76-08 19:24:00 Test Item Value Reference Range Interpretation Comments MCHC (test code = MCHC) 34.0 32.0-36.0 [facility]FpnsyeeNCJIXHIGAP0244-51-98 19:24:00 Test Item Value Reference Range Interpretation Comments MCH (test code = MCH) 30.6 pg 27.0-31.0 [facility]NeuhkjfHPKGNFYUOS4458-53-37 19:24:00 Test Item Value Reference Range Interpretation Comments MPV (test code = MPV) 8.1 7.4-10.4 [facility] HospitalRjwnsodOSYNCUIKPI6873-42-71 19:24:00 Test Item Value Reference Range Interpretation Comments Stomatocyte (test code = Stomatocyte) Slight [facility]ImgvtukJSARFGCHWV9753-49-60 19:24:00 Test Item Value Reference Range Interpretation Comments Basophils # (test code 0.1 See_Comment [Aut omated message] The = Basophils #) system which generated this result tra nsmitted reference range : <=0.2. The reference r ozzy was not used to int erpret this result as normal/abnormal . [facility]KzpgofsDGLIHAAAFH0916-39-61 19:24:00 Test Item Value Reference Range Interpretation Comments Eosinophils # (test code 0.2 See_Comment [A utomated message] The = Eosinophils #) system whic h generated this result tra nsmitted reference range : <=0.5. The reference r ozzy was not used to int erpret this result as normal/abnormal . [facility]MkzwdtdFCPLVVJTRD2229-04-09 19:24:00 Test Item Value Reference Range Interpretation Comments Hypochrom (test code = 1+ (08/24/14 1:24 PM) Hypochrom) [facility]KnctdmkEMMJFYDUJQ2857-65-21 19:24:00 Test Item Value Reference Range Interpretation Comments Lymphocytes # (test code = Lymphocytes 2.8 1.0-5.5 #) [facility] HospitalEcsugquXYKPKHPNTI7418-50-09 19:24:00 Test Item Value Reference Range Interpretation Comments Segs-Bands # (test code = Segs-Bands #) 8.1 1.5-8.1 [facility] HospitalRpixlhtRIRFCNFWEI2492-61-11 19:24:00 Test Item Value Reference Range Interpretation Comments Monocytes # (test code 0.2 See_Comment [Aut omated message] The = Monocytes #) system which generated this result tra nsmitted reference range : <=0.8. The reference r ozzy was not used to int erpret this result as normal/abnormal . [facility] Hospit[id number] 19:24:00 Test Item Value Reference Range Interpretation Comments Lymphocytes (test code = Lymphocytes) 24.5 20.0-40.0 [facility] HospitalAzmodybQNAHCQRHWC6824-33-08 19:24:00 Test Item Value Reference Range Interpretation Comments Segs (test code = Segs) 71.8 45.0-75.0 [facility] HospitalYdhsjjpMFUKZUZQVQ3531-91-50 19:24:00 Test Item Value Reference Range Interpretation Comments Basophils (test code = 0.6 See_Comment [Aut omated message] The Basophils) system which ge nerated this result tra nsmitted reference range : <=1.0. The reference r ozzy was not used to int erpret this result as normal/abnormal . [facility] HospitalAmgmsixRYSRHBZMJH0284-44-17 19:24:00 Test Item Value Reference Range Interpretation Comments Monocytes (test code = Monocytes) 1.5 2.0-12.0 [facility] HospitalQqqyamjPWBCTRVMCM7859-03-57 19:24:00 Test Item Value Reference Range Interpretation Comments Eosinophils (test code = 1.6 See_Comment [A utomated message] The Eosinophils) system which ge nerated this result tra nsmitted reference range : <=4.0. The reference r ozzy was not used to int erpret this result as normal/abnormal . [facility] HospitalSrglxcxEFSTMQLMNF9743-56-06 19:24:00 Test Item Value Reference Range Interpretation Comments Plt Morph (test code = Normal (08/24/14 1:24 Plt Morph) PM) [facility] AND [id number] 19:24:00 Test Item Value Reference Range Interpretation Comments UA Sq Epi (test code = UA Sq Occasional /LPF Epi) [facility] AND [id number] 19:24:00 Test Item Value Reference Range Interpretation Comments UA Bacteria (test code = UA Occasional /HPF Bacteria) [facility] AND [id number] 19:24:00 Test Item Value Reference Range Interpretation Comments UA Mucus (test code = None Seen (08/24/14 UA Mucus) 1:24 PM) [facility] AND [id number] 19:24:00 Test Item Value Reference Range Interpretation Comments UA WBC (test code = UA WBC) 0-2 /HPF [facility] AND [id number] 19:24:00 Test Item Value Reference Range Interpretation Comments UA RBC (test code = 0-2 /HPF See_Comment [Automa agye message] The UA RBC) system which ge nerated this result tra nsmitted reference range : <=2. The reference range was not used to interpr et this result as satish l/abnormal. [facility] AND [id number] 19:24:00 Test Item Value Reference Range Interpretation Comments UA Leuk Est (test Moderate *ABN*(08/24/14 code = UA Leuk Est) 1:24 PM) [facility] AND [id number] 19:24:00 Test Item Value Reference Range Interpretation Comments UA Nitrite (test code Negative (08/24/14 1:24 = UA Nitrite) PM) [facility] AND [id number] 19:24:00 Test Item Value Reference Range Interpretation Comments UA Urobilinogen (test code = UA 0.2 0.1-1.0 Urobilinogen) [facility] AND [id number] 19:24:00 Test Item Value Reference Range Interpretation Comments UA Ketones (test code Negative *NA*(08/24/14 = UA Ketones) 1:24 PM) [facility] AND [id number] 19:24:00 Test Item Value Reference Range Interpretation Comments UA Blood (test code = Negative (08/24/14 1:24 UA Blood) PM) [facility] AND [id number] 19:24:00 Test Item Value Reference Range Interpretation Comments UA Bili (test code = Negative *NA*(08/24/14 UA Bili) 1:24 PM) [facility] AND [id number] 19:24:00 Test Item Value Reference Range Interpretation Comments UA Color (test code = Yellow *NA*(08/24/14 UA Color) 1:24 PM) [facility] AND [id number] 19:24:00 Test Item Value Reference Range Interpretation Comments UA Glucose (test code Negative (08/24/14 1:24 = UA Glucose) PM) [facility] AND [id number] 19:24:00 Test Item Value Reference Range Interpretation Comments UA Protein (test code Negative (08/24/14 1:24 = UA Protein) PM) [facility] AND [id number] 19:24:00 Test Item Value Reference Range Interpretation Comments UA pH (test code = UA pH) 6.0 1 5.0-8.0 [facility] [id number] 19:24:00 Test Item Value Reference Range Interpretation Comments UA Spec Grav (test code *NA*(08/24/14 1:24 PM) = UA Spec Grav) [facility] AND [id number] 19:24:00 Test Item Value Reference Range Interpretation Comments UA Turbidity (test code = Clear (08/24/14 1:24 UA Turbidity) PM) [facility] [id number] 19:24:00 Test Item Value Reference Range Interpretation Comments Lipase Lvl (test code = Lipase Lvl) 104 73-393 [facility]2015-01-12 19:24:00 Test Item Value Reference Range Interpretation Comments eGFR (test code = eGFR) 109 [facility]2015-01-12 19:24:00 Test Item Value Reference Range Interpretation Comments Bili Total (test code = Bili Total) 0.6 0.2-1.3 [facility]2015-01-12 19:24:00 Test Item Value Reference Range Interpretation Comments Alk Phos (test code = Alk Phos) 72 39-136 [facility]2015-01-12 19:24:00 Test Item Value Reference Range Interpretation Comments Calcium Lvl (test code = Calcium Lvl) 8.8 8.5-10.5 [facility]2015-01-12 19:24:00 Test Item Value Reference Range Interpretation Comments CO2 (test code = CO2) 28 24-32 [facility]2015-01-12 19:24:00 Test Item Value Reference Range Interpretation Comments Chloride Lvl (test code = Chloride Lvl) 107 95-109 [facility]2015-01-12 19:24:00 Test Item Value Reference Range Interpretation Comments Potassium Lvl (test code = Potassium 3.9 3.5-5.1 Lvl) [facility]2015-01-12 19:24:00 Test Item Value Reference Range Interpretation Comments Glucose Lvl (test code = Glucose Lvl) 90 70-99 [facility]2015-01-12 19:24:00 Test Item Value Reference Range Interpretation Comments Sodium Lvl (test code = Sodium Lvl) 138 135-145 [facility]2015-01-12 19:24:00 Test Item Value Reference Range Interpretation Comments BUN (test code = BUN) 7 7-22 [facility]2015-01-12 19:24:00 Test Item Value Reference Range Interpretation Comments Creatinine Lvl (test code = Creatinine 0.7 0.5-1.4 Lvl) [facility]2015-01-12 19:24:00 Test Item Value Reference Range Interpretation Comments ALT (test code = ALT) 23 <=65 [facility]2015-01-12 19:24:00 Test Item Value Reference Range Interpretation Comments AST (test code = AST) 12 <=37 [facility]2015-01-12 19:24:00 Test Item Value Reference Range Interpretation Comments Albumin Lvl (test code = Albumin Lvl) 3.8 3.5-5.0 [place] [id number] 19:24:00 Test Item Value Reference Range Interpretation Comments Total Protein (test code = Total 8.0 6.4-8.4 Protein) [facility]2015-01-12 19:24:00 Test Item Value Reference Range Interpretation Comments A/G Ratio (test code = A/G Ratio) 0.9 0.7-1.6 [facility]2015-01-12 19:24:00 Test Item Value Reference Range Interpretation Comments AGAP (test code = AGAP) 6.9 10.0-20.0 [facility]2015-01-12 19:24:00 Test Item Value Reference Range Interpretation Comments B/C Ratio (test code = B/C Ratio) 10 6-25 [facility]2015-01-12 19:24:00 Test Item Value Reference Range Interpretation Comments Globulin (test code = Globulin) 4.2 2.0-4.0 [id number] 19:24:00 Test Item Value Reference Range Interpretation Comments S Preg (test code = S Negative *NA*(08/24/14 Preg) 1:24 PM) [facility]NmdfbojFRDGRQVWBR9312-51-57 19:24:00 Test Item Value Reference Range Interpretation Comments WBC (test code = WBC) 11.3 3.7-10.4 [facility]NpnopzdZNILSGJNMD2561-57-71 19:24:00 Test Item Value Reference Range Interpretation Comments RBC (test code = RBC) 4.75 4.20-5.40 [facility]MysizlnWDQAUJGLEZ7280-87-42 19:24:00 Test Item Value Reference Range Interpretation Comments Platelet (test code = Platelet) 402 133-450 [facility]ZvhzfrzKWBABCNCVP0940-92-17 19:24:00 Test Item Value Reference Range Interpretation Comments MCV (test code = MCV) 89.9 80.0-98.0 [facility] HospitalCdivirnHRWDUQNVHB9606-42-08 19:24:00 Test Item Value Reference Range Interpretation Comments Hct (test code = Hct) 42.7 36.0-48.0 [facility] HospitalDprnnmsBNKHEKWAQY8888-72-10 19:24:00 Test Item Value Reference Range Interpretation Comments Hgb (test code = Hgb) 14.5 12.0-16.0 [facility] HospitalBdhgkvcXDGCEFVNWP6413-55-92 19:24:00 Test Item Value Reference Range Interpretation Comments RDW (test code = RDW) 13.5 11.5-14.5 [facility]GhpgxbzMUBIVXSUET4424-11-23 19:24:00 Test Item Value Reference Range Interpretation Comments MCHC (test code = MCHC) 34.0 32.0-36.0 [facility]YwleuhvLWWJYXHEEM7765-02-36 19:24:00 Test Item Value Reference Range Interpretation Comments MCH (test code = MCH) 30.6 pg 27.0-31.0 [facility]KfwyxwfCFBQIUAPWV9601-19-49 19:24:00 Test Item Value Reference Range Interpretation Comments MPV (test code = MPV) 8.1 7.4-10.4 [facility]EhzrbbnRPJITGPZEU0336-72-04 19:24:00 Test Item Value Reference Range Interpretation Comments Stomatocyte (test code = Stomatocyte) Slight [facility] HospitalHoveniqERHTISYVOL0472-32-00 19:24:00 Test Item Value Reference Range Interpretation Comments Basophils # (test code = Basophils #) 0.1 <=0.2 [id number] 19:24:00 Test Item Value Reference Range Interpretation Comments Eosinophils # (test code = Eosinophils 0.2 <=0.5 #) [id number] 19:24:00 Test Item Value Reference Range Interpretation Comments Hypochrom (test code = 1+ (08/24/14 1:24 PM) Hypochrom) [facility] HospitalRiidqhwQTFAFOFDCN7808-42-56 19:24:00 Test Item Value Reference Range Interpretation Comments Lymphocytes # (test code = Lymphocytes 2.8 1.0-5.5 #) [facility] HospitalDngfbfvTYKKLHALCN7070-40-05 19:24:00 Test Item Value Reference Range Interpretation Comments Segs-Bands # (test code = Segs-Bands #) 8.1 1.5-8.1 [facility]QhmzdnfIYFEECMOAX6914-62-71 19:24:00 Test Item Value Reference Range Interpretation Comments Monocytes # (test code = Monocytes #) 0.2 <=0.8 [facility]KylwhgyRGTTYTPDJN6000-83-20 19:24:00 Test Item Value Reference Range Interpretation Comments Lymphocytes (test code = Lymphocytes) 24.5 20.0-40.0 [facility] HospitalPmpxbkjLDCTPIFHWJ2545-87-11 19:24:00 Test Item Value Reference Range Interpretation Comments Segs (test code = Segs) 71.8 45.0-75.0 [facility] HospitalXiszimrUMXBWWNMJK8928-42-49 19:24:00 Test Item Value Reference Range Interpretation Comments Basophils (test code = Basophils) 0.6 <=1.0 [facility] HospitalBrmhnmuFVYEKIKOSO0774-84-58 19:24:00 Test Item Value Reference Range Interpretation Comments Monocytes (test code = Monocytes) 1.5 2.0-12.0 [facility] HospitalGfbcuxgDANDJLSAGQ3703-44-17 19:24:00 Test Item Value Reference Range Interpretation Comments Eosinophils (test code = Eosinophils) 1.6 <=4.0 [facility] HospitalTauvrriUPXVOOTPLE8006-77-48 19:24:00 Test Item Value Reference Range Interpretation Comments Plt Morph (test code = Normal (08/24/14 1:24 Plt Morph) PM) [facility] AND [id number] 19:24:00 Test Item Value Reference Range Interpretation Comments UA Sq Epi (test code = UA Sq Occasional /LPF Epi) [facility] AND [id number] 19:24:00 Test Item Value Reference Range Interpretation Comments UA Bacteria (test code = UA Occasional /HPF Bacteria) [facility] AND [id number] 19:24:00 Test Item Value Reference Range Interpretation Comments UA Mucus (test code = None Seen (08/24/14 UA Mucus) 1:24 PM) [facility] AND [id number] 19:24:00 Test Item Value Reference Range Interpretation Comments UA WBC (test code = UA WBC) 0-2 /HPF [facility] AND [id number] 19:24:00 Test Item Value Reference Range Interpretation Comments UA RBC (test code = UA RBC) 0-2 /HPF <=2 [facility] AND [id number] 19:24:00 Test Item Value Reference Range Interpretation Comments UA Leuk Est (test Moderate *ABN*(08/24/14 code = UA Leuk Est) 1:24 PM) [facility] AND [id number] 19:24:00 Test Item Value Reference Range Interpretation Comments UA Nitrite (test code Negative (08/24/14 1:24 = UA Nitrite) PM) [facility] AND [id number] 19:24:00 Test Item Value Reference Range Interpretation Comments UA Urobilinogen (test code = UA 0.2 0.1-1.0 Urobilinogen) [facility] AND [id number] 19:24:00 Test Item Value Reference Range Interpretation Comments UA Ketones (test code Negative *NA*(08/24/14 = UA Ketones) 1:24 PM) [facility] AND [id number] 19:24:00 Test Item Value Reference Range Interpretation Comments UA Blood (test code = Negative (08/24/14 1:24 UA Blood) PM) [facility] AND [id number] 19:24:00 Test Item Value Reference Range Interpretation Comments UA Bili (test code = Negative *NA*(08/24/14 UA Bili) 1:24 PM) [facility] AND [id number] 19:24:00 Test Item Value Reference Range Interpretation Comments UA Color (test code = Yellow *NA*(08/24/14 UA Color) 1:24 PM) [facility] AND [id number] 19:24:00 Test Item Value Reference Range Interpretation Comments UA Glucose (test code Negative (08/24/14 1:24 = UA Glucose) PM) [facility] AND [id number] 19:24:00 Test Item Value Reference Range Interpretation Comments UA Protein (test code Negative (08/24/14 1:24 = UA Protein) PM) [facility] AND [id number] 19:24:00 Test Item Value Reference Range Interpretation Comments UA pH (test code = UA pH) 6.0 1 5.0-8.0 [facility] AND [id number] 19:24:00 Test Item Value Reference Range Interpretation Comments UA Spec Grav (test code *NA*(08/24/14 1:24 PM) = UA Spec Grav) [facility] AND [id number] 19:24:00 Test Item Value Reference Range Interpretation Comments UA Turbidity (test code = Clear (08/24/14 1:24 UA Turbidity) PM) [facility]2015-01-12 19:24:00 Test Item Value Reference Range Interpretation Comments Lipase Lvl (test code = Lipase Lvl) 104 73-393 [facility]2015-01-12 19:24:00 Test Item Value Reference Range Interpretation Comments eGFR (test code = eGFR) 109 [facility]2015-01-12 19:24:00 Test Item Value Reference Range Interpretation Comments Bili Total (test code = Bili Total) 0.6 0.2-1.3 [facility]2015-01-12 19:24:00 Test Item Value Reference Range Interpretation Comments Alk Phos (test code = Alk Phos) 72 39-136 [facility]2015-01-12 19:24:00 Test Item Value Reference Range Interpretation Comments Calcium Lvl (test code = Calcium Lvl) 8.8 8.5-10.5 [facility]2015-01-12 19:24:00 Test Item Value Reference Range Interpretation Comments CO2 (test code = CO2) 28 24-32 [facility]2015-01-12 19:24:00 Test Item Value Reference Range Interpretation Comments Chloride Lvl (test code = Chloride Lvl) 107 95-109 [facility]2015-01-12 19:24:00 Test Item Value Reference Range Interpretation Comments Potassium Lvl (test code = Potassium 3.9 3.5-5.1 Lvl) [facility]2015-01-12 19:24:00 Test Item Value Reference Range Interpretation Comments Glucose Lvl (test code = Glucose Lvl) 90 70-99 [facility]2015-01-12 19:24:00 Test Item Value Reference Range Interpretation Comments Sodium Lvl (test code = Sodium Lvl) 138 135-145 [facility]2015-01-12 19:24:00 Test Item Value Reference Range Interpretation Comments BUN (test code = BUN) 7 7-22 [facility]2015-01-12 19:24:00 Test Item Value Reference Range Interpretation Comments Creatinine Lvl (test code = Creatinine 0.7 0.5-1.4 Lvl) [facility]2015-01-12 19:24:00 Test Item Value Reference Range Interpretation Comments ALT (test code = ALT) 23 See_Comment [Auto mated message] The system which ge nerated this result transmit gaye reference range : <=65. The reference range was not used to interpr et this result as satish l/abnormal. [facility]2015-01-12 19:24:00 Test Item Value Reference Range Interpretation Comments AST (test code = AST) 12 See_Comment [Auto mated message] The system which ge nerated this result transmit gaye reference range : <=37. The reference range was not used to interpr et this result as satish l/abnormal. [place] [id number] 19:24:00 Test Item Value Reference Range Interpretation Comments Albumin Lvl (test code = Albumin Lvl) 3.8 3.5-5.0 [facility]2015-01-12 19:24:00 Test Item Value Reference Range Interpretation Comments Total Protein (test code = Total 8.0 6.4-8.4 Protein) [facility]2015-01-12 19:24:00 Test Item Value Reference Range Interpretation Comments A/G Ratio (test code = A/G Ratio) 0.9 0.7-1.6 [facility]2015-01-12 19:24:00 Test Item Value Reference Range Interpretation Comments AGAP (test code = AGAP) 6.9 10.0-20.0 [facility]2015-01-12 19:24:00 Test Item Value Reference Range Interpretation Comments B/C Ratio (test code = B/C Ratio) 10 6-25 [facility]2015-01-12 19:24:00 Test Item Value Reference Range Interpretation Comments Globulin (test code = Globulin) 4.2 2.0-4.0 [id number] 19:24:00 Test Item Value Reference Range Interpretation Comments S Preg (test code = S Negative *NA*(08/24/14 Preg) 1:24 PM) [facility]PcgyryqALJAIPGGOZ9827-79-50 19:24:00 Test Item Value Reference Range Interpretation Comments WBC (test code = WBC) 11.3 3.7-10.4 [id number] 19:24:00 Test Item Value Reference Range Interpretation Comments RBC (test code = RBC) 4.75 4.20-5.40 [facility] HospitalPjhikznAONCUWVOTT3917-08-37 19:24:00 Test Item Value Reference Range Interpretation Comments Platelet (test code = Platelet) 402 133-450 [facility] Hospit[id number] 19:24:00 Test Item Value Reference Range Interpretation Comments MCV (test code = MCV) 89.9 80.0-98.0 [facility] HospitalUvgqthwYPXBBMAITP9457-44-77 19:24:00 Test Item Value Reference Range Interpretation Comments Hct (test code = Hct) 42.7 36.0-48.0 [facility] HospitalLkeybjaUAQLZQOAGE1888-96-48 19:24:00 Test Item Value Reference Range Interpretation Comments Hgb (test code = Hgb) 14.5 12.0-16.0 [facility]LrlyzhdTEDEKYKBEP4161-52-80 19:24:00 Test Item Value Reference Range Interpretation Comments RDW (test code = RDW) 13.5 11.5-14.5 [facility] HospitalYhpawdtDCFAPBHKOW2489-85-24 19:24:00 Test Item Value Reference Range Interpretation Comments MCHC (test code = MCHC) 34.0 32.0-36.0 [facility] HospitalDxxdqpaZBPDEBWUEJ6230-27-75 19:24:00 Test Item Value Reference Range Interpretation Comments MCH (test code = MCH) 30.6 pg 27.0-31.0 [facility] HospitalYaruwmxEYWOXXSVKG5926-50-15 19:24:00 Test Item Value Reference Range Interpretation Comments MPV (test code = MPV) 8.1 7.4-10.4 [facility]IsqlyhsKHSFMWAUEE8983-59-58 19:24:00 Test Item Value Reference Range Interpretation Comments Stomatocyte (test code = Stomatocyte) Slight [facility] HospitalVeloedhNJKCZSSXPS1618-69-10 19:24:00 Test Item Value Reference Range Interpretation Comments Basophils # (test code 0.1 See_Comment [Aut omated message] The = Basophils #) system which generated this result tra nsmitted reference range : <=0.2. The reference r ozzy was not used to int erpret this result as normal/abnormal . [id number] 19:24:00 Test Item Value Reference Range Interpretation Comments Eosinophils # (test code 0.2 See_Comment [A utomated message] The = Eosinophils #) system ic h generated this result tra nsmitted reference range : <=0.5. The reference r ozzy was not used to int erpret this result as normal/abnormal . [facility]YdcmdkjUPRUDBXPEP1739-24-79 19:24:00 Test Item Value Reference Range Interpretation Comments Hypochrom (test code = 1+ (08/24/14 1:24 PM) Hypochrom) [id number] 19:24:00 Test Item Value Reference Range Interpretation Comments Lymphocytes # (test code = Lymphocytes 2.8 1.0-5.5 #) [facility] HospitalPupsrcaYOVZFHRYDH6680-43-24 19:24:00 Test Item Value Reference Range Interpretation Comments Segs-Bands # (test code = Segs-Bands #) 8.1 1.5-8.1 [facility] HospitalUzzlnqsCALHTWQJJG1754-58-50 19:24:00 Test Item Value Reference Range Interpretation Comments Monocytes # (test code 0.2 See_Comment [Aut omated message] The = Monocytes #) system which generated this result tra nsmitted reference range : <=0.8. The reference r ozzy was not used to int erpret this result as normal/abnormal . [id number] 19:24:00 Test Item Value Reference Range Interpretation Comments Lymphocytes (test code = Lymphocytes) 24.5 20.0-40.0 [facility] Hospit[id number] 19:24:00 Test Item Value Reference Range Interpretation Comments Segs (test code = Segs) 71.8 45.0-75.0 [facility] HospitalTlfjylpIKBCXVJZZS9976-03-82 19:24:00 Test Item Value Reference Range Interpretation Comments Basophils (test code = 0.6 See_Comment [Aut omated message] The Basophils) system which ge nerated this result tra nsmitted reference range : <=1.0. The reference r ozzy was not used to int erpret this result as normal/abnormal . [facility] HospitalDuglwhrVVGWDNAIBO5481-46-13 19:24:00 Test Item Value Reference Range Interpretation Comments Monocytes (test code = Monocytes) 1.5 2.0-12.0 [facility]YbbuosdWUUPGMJYAK1862-24-85 19:24:00 Test Item Value Reference Range Interpretation Comments Eosinophils (test code = 1.6 See_Comment [A utomated message] The Eosinophils) system which ge nerated this result tra nsmitted reference range : <=4.0. The reference r ozzy was not used to int erpret this result as normal/abnormal . [facility]HF[facility]-86 19:24:00 Test Item Value Reference Range Interpretation Comments Plt Morph (test code = Normal (08/24/14 1:24 Plt Morph) PM) [facility] AND [id number] 19:24:00 Test Item Value Reference Range Interpretation Comments UA Sq Epi (test code = UA Sq Occasional /LPF Epi) [facility] AND [id number] 19:24:00 Test Item Value Reference Range Interpretation Comments UA Bacteria (test code = UA Occasional /HPF Bacteria) [facility] AND [id number] 19:24:00 Test Item Value Reference Range Interpretation Comments UA Mucus (test code = None Seen (08/24/14 UA Mucus) 1:24 PM) [facility] AND [id number] 19:24:00 Test Item Value Reference Range Interpretation Comments UA WBC (test code = UA WBC) 0-2 /HPF [facility] AND [id number] 19:24:00 Test Item Value Reference Range Interpretation Comments UA RBC (test code = 0-2 /HPF See_Comment [Automa gaye message] The UA RBC) system which ge nerated this result tra nsmitted reference range : <=2. The reference range was not used to interpr et this result as satish l/abnormal. [facility] AND [id number] 19:24:00 Test Item Value Reference Range Interpretation Comments UA Leuk Est (test Moderate *ABN*(08/24/14 code = UA Leuk Est) 1:24 PM) [facility] AND [id number] 19:24:00 Test Item Value Reference Range Interpretation Comments UA Nitrite (test code Negative (08/24/14 1:24 = UA Nitrite) PM) [facility] AND [id number] 19:24:00 Test Item Value Reference Range Interpretation Comments UA Urobilinogen (test code = UA 0.2 0.1-1.0 Urobilinogen) [facility] AND [id number] 19:24:00 Test Item Value Reference Range Interpretation Comments UA Ketones (test code Negative *NA*(08/24/14 = UA Ketones) 1:24 PM) [facility] AND [id number] 19:24:00 Test Item Value Reference Range Interpretation Comments UA Blood (test code = Negative (08/24/14 1:24 UA Blood) PM) [facility] AND [id number] 19:24:00 Test Item Value Reference Range Interpretation Comments UA Bili (test code = Negative *NA*(08/24/14 UA Bili) 1:24 PM) [facility] AND [id number] 19:24:00 Test Item Value Reference Range Interpretation Comments UA Color (test code = Yellow *NA*(08/24/14 UA Color) 1:24 PM) [facility] AND [id number] 19:24:00 Test Item Value Reference Range Interpretation Comments UA Glucose (test code Negative (08/24/14 1:24 = UA Glucose) PM) [facility] AND [id number] 19:24:00 Test Item Value Reference Range Interpretation Comments UA Protein (test code Negative (08/24/14 1:24 = UA Protein) PM) [facility] AND [id number] 19:24:00 Test Item Value Reference Range Interpretation Comments UA pH (test code = UA pH) 6.0 1 5.0-8.0 [facility] AND [id number] 19:24:00 Test Item Value Reference Range Interpretation Comments UA Spec Grav (test code *NA*(08/24/14 1:24 PM) = UA Spec Grav) [facility] AND [id number] 19:24:00 Test Item Value Reference Range Interpretation Comments UA Turbidity (test code = Clear (08/24/14 1:24 UA Turbidity) PM) [facility] [id number] 19:24:00 Test Item Value Reference Range Interpretation Comments Lipase Lvl (test code = Lipase Lvl) 104 73-393 [facility]2015-01-12 19:24:00 Test Item Value Reference Range Interpretation Comments eGFR (test code = eGFR) 109 [facility]2015-01-12 19:24:00 Test Item Value Reference Range Interpretation Comments Bili Total (test code = Bili Total) 0.6 0.2-1.3 [facility]2015-01-12 19:24:00 Test Item Value Reference Range Interpretation Comments Alk Phos (test code = Alk Phos) 72 39-136 [facility]2015-01-12 19:24:00 Test Item Value Reference Range Interpretation Comments Calcium Lvl (test code = Calcium Lvl) 8.8 8.5-10.5 [facility]2015-01-12 19:24:00 Test Item Value Reference Range Interpretation Comments CO2 (test code = CO2) 28 24-32 [facility]2015-01-12 19:24:00 Test Item Value Reference Range Interpretation Comments Chloride Lvl (test code = Chloride Lvl) 107 95-109 [facility]2015-01-12 19:24:00 Test Item Value Reference Range Interpretation Comments Potassium Lvl (test code = Potassium 3.9 3.5-5.1 Lvl) [facility]2015-01-12 19:24:00 Test Item Value Reference Range Interpretation Comments Glucose Lvl (test code = Glucose Lvl) 90 70-99 [facility]2015-01-12 19:24:00 Test Item Value Reference Range Interpretation Comments Sodium Lvl (test code = Sodium Lvl) 138 135-145 [facility]2015-01-12 19:24:00 Test Item Value Reference Range Interpretation Comments BUN (test code = BUN) 7 7-22 [facility]2015-01-12 19:24:00 Test Item Value Reference Range Interpretation Comments Creatinine Lvl (test code = Creatinine 0.7 0.5-1.4 Lvl) [facility]2015-01-12 19:24:00 Test Item Value Reference Range Interpretation Comments ALT (test code = ALT) 23 <=65 [facility]2015-01-12 19:24:00 Test Item Value Reference Range Interpretation Comments AST (test code = AST) 12 <=37 [facility]2015-01-12 19:24:00 Test Item Value Reference Range Interpretation Comments Albumin Lvl (test code = Albumin Lvl) 3.8 3.5-5.0 [facility]2015-01-12 19:24:00 Test Item Value Reference Range Interpretation Comments Total Protein (test code = Total 8.0 6.4-8.4 Protein) [facility]2015-01-12 19:24:00 Test Item Value Reference Range Interpretation Comments A/G Ratio (test code = A/G Ratio) 0.9 0.7-1.6 [facility]2015-01-12 19:24:00 Test Item Value Reference Range Interpretation Comments AGAP (test code = AGAP) 6.9 10.0-20.0 [facility]2015-01-12 19:24:00 Test Item Value Reference Range Interpretation Comments B/C Ratio (test code = B/C Ratio) 10 6-25 [facility]2015-01-12 19:24:00 Test Item Value Reference Range Interpretation Comments Globulin (test code = Globulin) 4.2 2.0-4.0 [id number] 19:24:00 Test Item Value Reference Range Interpretation Comments S Preg (test code = S Negative *NA*(08/24/14 Preg) 1:24 PM) [id number] 19:24:00 Test Item Value Reference Range Interpretation Comments WBC (test code = WBC) 11.3 3.7-10.4 [facility] H[id number] 19:24:00 Test Item Value Reference Range Interpretation Comments RBC (test code = RBC) 4.75 4.20-5.40 [facility] HospitalRoasmfqDPASSMZPGG0359-58-32 19:24:00 Test Item Value Reference Range Interpretation Comments Platelet (test code = Platelet) 402 133-450 [facility] HospitalTlqtncqAAEYEANUWB5144-10-01 19:24:00 Test Item Value Reference Range Interpretation Comments MCV (test code = MCV) 89.9 80.0-98.0 [facility] HospitalFwrfnfsXDPJRZBLLB4850-34-98 19:24:00 Test Item Value Reference Range Interpretation Comments Hct (test code = Hct) 42.7 36.0-48.0 [facility] HospitalYnixgsuXLUMYLHQSN4396-99-81 19:24:00 Test Item Value Reference Range Interpretation Comments Hgb (test code = Hgb) 14.5 12.0-16.0 [facility] HospitalLodxxwmZCIGBMPWFL4898-67-69 19:24:00 Test Item Value Reference Range Interpretation Comments RDW (test code = RDW) 13.5 11.5-14.5 [facility] HospitalGygqranKFFDHTSBIO9232-09-31 19:24:00 Test Item Value Reference Range Interpretation Comments MCHC (test code = MCHC) 34.0 32.0-36.0 [facility] HospitalPjdvymuFQKIKGIRRD6903-94-56 19:24:00 Test Item Value Reference Range Interpretation Comments MCH (test code = MCH) 30.6 pg 27.0-31.0 [facility] HospitalAcgsxpmNTMPOHIIEJ9304-88-77 19:24:00 Test Item Value Reference Range Interpretation Comments MPV (test code = MPV) 8.1 7.4-10.4 [facility] HospitalCfjuultCKYQBSIBIE3668-94-24 19:24:00 Test Item Value Reference Range Interpretation Comments Stomatocyte (test code = Stomatocyte) Slight [facility] HospitalGaxxqvnWNHAMTPSQC9221-83-90 19:24:00 Test Item Value Reference Range Interpretation Comments Basophils # (test code = Basophils #) 0.1 <=0.2 [facility] HospitalLjrzzozBBHJHRFTAM6090-13-89 19:24:00 Test Item Value Reference Range Interpretation Comments Eosinophils # (test code = Eosinophils 0.2 <=0.5 #) [facility] HospitalIlmqbolFRWGCPOJMR7578-89-44 19:24:00 Test Item Value Reference Range Interpretation Comments Hypochrom (test code = 1+ (08/24/14 1:24 PM) Hypochrom) [facility] HospitalWoqedptTSKHQELWRZ2429-70-21 19:24:00 Test Item Value Reference Range Interpretation Comments Lymphocytes # (test code = Lymphocytes 2.8 1.0-5.5 #) [facility] HospitalXqgboiySGYMEJFCZG1881-21-13 19:24:00 Test Item Value Reference Range Interpretation Comments Segs-Bands # (test code = Segs-Bands #) 8.1 1.5-8.1 [facility] HospitalCytvfcbMPKXJYYVAL3711-20-35 19:24:00 Test Item Value Reference Range Interpretation Comments Monocytes # (test code = Monocytes #) 0.2 <=0.8 [facility] HospitalLrlcouhLYGQCQKPEM3205-03-63 19:24:00 Test Item Value Reference Range Interpretation Comments Lymphocytes (test code = Lymphocytes) 24.5 20.0-40.0 [facility] HospitalQgdprpvXPWYQKXHLV6213-52-46 19:24:00 Test Item Value Reference Range Interpretation Comments Segs (test code = Segs) 71.8 45.0-75.0 [facility] HospitalCkyljutCVMJMOHFAY5542-21-38 19:24:00 Test Item Value Reference Range Interpretation Comments Basophils (test code = Basophils) 0.6 <=1.0 [facility] HospitalBcbpuvcOBOMXZBIUX1503-60-10 19:24:00 Test Item Value Reference Range Interpretation Comments Monocytes (test code = Monocytes) 1.5 2.0-12.0 [facility] HospitalLttnccuHGZGKYNLKI1223-41-23 19:24:00 Test Item Value Reference Range Interpretation Comments Eosinophils (test code = Eosinophils) 1.6 <=4.0 [facility] HospitalWjnkkkaGIRPPFKESV7148-49-07 19:24:00 Test Item Value Reference Range Interpretation Comments Plt Morph (test code = Normal (08/24/14 1:24 Plt Morph) PM) [facility] AND [id number] 19:24:00 Test Item Value Reference Range Interpretation Comments UA Sq Epi (test code = UA Sq Occasional /LPF Epi) [facility] AND [id number] 19:24:00 Test Item Value Reference Range Interpretation Comments UA Bacteria (test code = UA Occasional /HPF Bacteria) [facility] AND [id number] 19:24:00 Test Item Value Reference Range Interpretation Comments UA Mucus (test code = None Seen (08/24/14 UA Mucus) 1:24 PM) [facility] AND [id number] 19:24:00 Test Item Value Reference Range Interpretation Comments UA WBC (test code = UA WBC) 0-2 /HPF [facility] AND [id number] 19:24:00 Test Item Value Reference Range Interpretation Comments UA RBC (test code = UA RBC) 0-2 /HPF <=2 [facility] AND [id number] 19:24:00 Test Item Value Reference Range Interpretation Comments UA Leuk Est (test Moderate *ABN*(08/24/14 code = UA Leuk Est) 1:24 PM) [facility] AND [id number] 19:24:00 Test Item Value Reference Range Interpretation Comments UA Nitrite (test code Negative (08/24/14 1:24 = UA Nitrite) PM) [facility] AND [id number] 19:24:00 Test Item Value Reference Range Interpretation Comments UA Urobilinogen (test code = UA 0.2 0.1-1.0 Urobilinogen) [facility] [id number] 19:24:00 Test Item Value Reference Range Interpretation Comments UA Ketones (test code Negative *NA*(08/24/14 = UA Ketones) 1:24 PM) [facility] [id number] 19:24:00 Test Item Value Reference Range Interpretation Comments UA Blood (test code = Negative (08/24/14 1:24 UA Blood) PM) [facility] [id number] 19:24:00 Test Item Value Reference Range Interpretation Comments UA Bili (test code = Negative *NA*(08/24/14 UA Bili) 1:24 PM) [facility] [id number] 19:24:00 Test Item Value Reference Range Interpretation Comments UA Color (test code = Yellow *NA*(08/24/14 UA Color) 1:24 PM) [facility] [id number] 19:24:00 Test Item Value Reference Range Interpretation Comments UA Glucose (test code Negative (08/24/14 1:24 = UA Glucose) PM) [facility] [id number] 19:24:00 Test Item Value Reference Range Interpretation Comments UA Protein (test code Negative (08/24/14 1:24 = UA Protein) PM) [facility] AND [id number] 19:24:00 Test Item Value Reference Range Interpretation Comments UA pH (test code = UA pH) 6.0 1 5.0-8.0 [facility] [id number] 19:24:00 Test Item Value Reference Range Interpretation Comments UA Spec Grav (test code *NA*(08/24/14 1:24 PM) = UA Spec Grav) [facility] AND [id number] 19:24:00 Test Item Value Reference Range Interpretation Comments UA Turbidity (test code = Clear (08/24/14 1:24 UA Turbidity) PM) [facility] Date/Time Note Provider Source 2016-02-13 01:41:05 [id number]:41:05Chest 1view DX [facility] 02/13/2016 1:07 AM CDTOrdering Physician: ADELE VieiraLINICAL HISTORY: Chest pain; TECHNIQUE: AP view of the chest were obtained.COMPARISON: NoneFINDINGS: Lungs are clear. No pleural effusion of pneumothorax is present. Cardiomediastinal silhouette is normal. Bones are normal. IMPRESSION:No acute abnormality of the chest.SL: [id number] ReportsLNDiagnostic ReportsTXTAVAvailable for patient [place] 393946-07-03T02:35:00 2016-02-13 01:41:05 0612-16-53R53:41:05Chest 1view [facility] 02/13/2016 1:07 AM CDTOrdering Physician: Malorie Fishman [facility]: Chest pain; TECHNIQUE: AP view of the chest were obtained.COMPARISON: NoneFINDINGS: Lungs are clear. No pleural effusion of pneumothorax is present. Cardiomediastinal silhouette is normal. Bones are normal. IMPRESSION:No acute abnormality of the chest.SL: [id number] ReportsLNDiagnostic ReportsTXTAVAvailable for patient [facility] JoseIkoxuedph7479-53-98O63:35:00 2016-02-13 01:41:05 2033-83-16G89:41:05Chest [facility] 02/13/2016 1:07 AM CDTOrdering Physician: ADELE VieiraLINICAL HISTORY: Chest pain; TECHNIQUE: AP view of the chest were obtained.COMPARISON: NoneFINDINGS: Lungs are clear. No pleural effusion of pneumothorax is present. Cardiomediastinal silhouette is normal. Bones are normal. IMPRESSION:No acute abnormality of the chest.SL: [id number] ReportsLNDiagnostic ReportsTXTAVAvailable for patient [facility] JoseHagdotpgg4488-13-79V89:35:00 2016-02-13 01:41:05 [id number]:41:05Chest [facility] 02/13/2016 1:07 AM CDTOrdering Physician: ADELE VieiraLINICAL HISTORY: Chest pain; TECHNIQUE: AP view of the chest were obtained.COMPARISON: NoneFINDINGS: Lungs are clear. No pleural effusion of pneumothorax is present. Cardiomediastinal silhouette is normal. Bones are normal. IMPRESSION:No acute abnormality of the chest.SL: [id number] ReportsLNDiagnostic ReportsTXTAVAvailable for patient [facility] JoseZpnldjyul2546-22-47Y50:35:00 2016-02-13 01:41:05 8779-58-86T38:41:05Chest 1view DX [facility] 02/13/2016 1:07 AM CDTOrdering Physician: Malorie Fishman [facility] H[facility]: Chest pain; TECHNIQUE: AP view of the chest were obtained.COMPARISON: NoneFINDINGS: Lungs are clear. No pleural effusion of pneumothorax is present. Cardiomediastinal silhouette is normal. Bones are normal. IMPRESSION:No acute abnormality of the chest.SL: [id number] ReportsLNDiagnostic ReportsTXTAVAvailable for patient [id number] ReportsLNMenifee Global Medical CenterNdtlqxkvm8953-68-39K29:35:00 2015-06-08 15:25:56 1569-87-13V79:25:56EXAM: US PELVIS SOFIA Alvarez TRANSABDOMINALEXAM: US PELVIS [...] be performed with dedicated pelvic MRI if indicated.[id number] ReportsLNDiagnostic ReportsTXTAVAvailable for patient [facility]2015-10-28T11:02:00 2015-06-08 15:25:56 6172-06-64L59:25:56EXAM: US PELVIS [facility] TRANSABDOMINALEXAM: US PELVIS TRANSVAGINAL INDICATION: Leiomyoma. COMPARISON: [...] be performed with dedicated pelvic MRI if indicated.[id number] ReportsLNDiagnostic ReportsTXTAVAvailable for patient [facility]2015-10-28T11:02:00 2015-06-08 15:25:56 [id number]:25:56EXAM: US PELVIS [facility] TRANSABDOMINALEXAM: US PELVIS TRANSVAGINAL INDICATION: Leiomyoma. COMPARISON: [...] be performed with dedicated pelvic MRI if indicated.[id number] ReportsLNDiagnostic ReportsTXTAVAvailable for patient [facility] Fuqvjqw9029-41-85G23:02:00 2015-06-08 15:25:56 2346-73-39P70:25:56EXAM: US PELVIS SOFIA Alvarez TRANSABDOMINALEXAM: US PELVIS [...] be performed with dedicated pelvic MRI if indicated.[id number] ReportsLNDiagnostic ReportsTXTAVAvailable for patient [facility]2015-10-28T11:02:00 2015-06-08 15:25:56 1205-59-36N39:25:56EXAM: US PELVIS SOFIA Alvarez TRANSABDOMINALEXAM: US PELVIS [...] be performed with dedicated pelvic MRI if indicated.[id number] ReportsLNDiagnostic ReportsTXTAVAvailable for patient fyrb85352-5Zdurtgxmav ReportsLNCLIFTON SPR[facility] SOFIA AlvarezOabpwpy0440-44-76C01:02:00
== END 2023-07-17 15:00 | disposition home or self-care (01) ==
LOC: ER 14:34
DX: R56.9 Unspecified convulsions (principal); F41.9 Anxiety disorder, unspecified
CPT/HCPCS: 99283

== ENCOUNTER → 2023-10-18 | Emergency (ER) | payer SELFPAY ==
[~2023-10-18] MED LIST: NA CHLORIDE 0.9% 1,000 ML ONE
[2023-10-18 23:49] LABS: Absolute Basophils 0.1 K/uL (0-0.5); Absolute Lymphocytes (CBC) 4.4 K/uL (0.7-4.9); Basophils % 1.2 % (0-1.3); Hematocrit 40.2 % (36.0-45.0); MCV 88.8 fL (80-100); MPV 7.5 fL (7.6-11.3); Platelets 401 thou/uL (152-406); RBC Red Blood Cell Count 4.53 M/uL (3.86-4.86)
[2023-10-18 23:57] LABS: Protime INR 1.08
[2023-10-19 00:07] LABS: Specific Gravity 1.006 (1.005-1.030); Urine Bacteria <20 /HPF (<20); Urine Bilirubin NEGATIVE (Negative); Urine Blood Negative (Negative); Urine Clarity Turbid (Clear); Urine Color Colorless (Yellow); Urine Glucose NEGATIVE (Negative); Urine Mucus Slight /HPF (None Seen); Urine Protein NEGATIVE (Negative); Urine RBC <5 /HPF (None Seen); Urine Urobilinogen Normal (Normal); Urine WBC Clump Rare /HPF (None Seen)
[2023-10-19 00:24] LABS: Albumin 3.5 g/dL (3.4-5.0); Albumin/Globulin Ratio 1.1 (1.1-1.8); Anion Gap 9.2 mEq/L (5.0-15.0); Bilirubin Direct 0.2 mg/dL (0-0.2); Bilirubin Indirect, Calculated 0.5 mg/dL (0.2-0.8); Bilirubin Total 0.7 mg/dL (0.2-1.0); Magnesium 2.1 mg/dL (1.6-2.4); Potassium 3.2 mEq/L (3.5-5.1); Protein, Total 6.8 g/dL (6.4-8.2)
--- NOTE | 2023-10-19 01:09 | EDPHYS ---
Physician Documentation [facility] Name: Shanna Nur Age: 48 yrs Sex: Female : 1975 Arrival Date: 10/18/2023 Time: 22:35 Bed 16 Private MD: ED Physician Johnathan Lerner HPI: 10/17 22:48 This 48 yrs old Female presents to ER via Unassigned with complaints of sp4 Dizziness. 23:46 Patient is a very pleasant 48-year-old female who presents with acute onset of sp4 dizziness and feeling unwell. . 10/18 00:15 48-year-old female with history atrial fibrillation seizures and traumatic brain injury sp4 I will hold presents with feeling unwell after she came into contact with some sort of oily substance at work. 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 Patient is here for evaluation.. 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 Flu vaccine is not up to date. - Social history:: Smoking status: Patient denies any tobacco usage or history of. Patient uses alcohol, but reports only rare drinking. Patient/guardian denies using street drugs. - Family history:: not pertinent. ROS: 10/18 00:15 Constitutional: Negative for fever, chills, and weight loss, positive dizziness and sp4 tremors All other systems are negative, Exam: 00:15 Constitutional: This is a well developed, well nourished patient who is awake, alert, sp4 and in no acute distress. Head/Face: Normocephalic, atraumatic. Eyes: Pupils equal round and reactive to light, extra-ocular motions intact. Lids and lashes normal. Conjunctiva and sclera are not injected. Cornea within normal limits. Periorbital areas with no swelling, redness, or edema. ENT: Nares patent. No nasal discharge, no septal abnormalities noted. Tympanic membranes are normal and external auditory canals are clear. Oropharynx with no redness, swelling, or masses, exudates, or evidence of obstruction, uvula midline. Mucous membranes moist. Neck: Trachea midline, no thyromegaly or masses palpated, and no cervical lymphadenopathy. Supple, full range of motion without nuchal rigidity, or vertebral point tenderness. Chest/axilla: Normal chest wall appearance and motion. Nontender with no deformity. No lesions are appreciated. Cardiovascular: Regular rate and rhythm with a normal S1 and S2. No gallops, murmurs, or rubs. Normal PMI, no JVD. No pulse deficits. Respiratory: Lungs have equal breath sounds bilaterally, clear to auscultation and percussion. No rales, rhonchi or wheezes noted. No increased work of breathing, no retractions or nasal flaring. Abdomen/GI: Soft, with normal bowel sounds. No distension or tympany. No guarding or rebound. No evidence of tenderness throughout. Back: No spinal tenderness. No costovertebral tenderness. Skin: Warm, dry with normal turgor. Normal color with no rashes, no lesions, and no evidence of cellulitis. MS/ Extremity: Pulses equal, no cyanosis. Neurovascular intact. Full, normal range of motion. Neuro: Awake and alert, GCS 15, oriented to person, place, time, and situation. Cranial nerves II-XII grossly intact. Motor strength 5/5 in all extremities. Sensory grossly intact. Psych: Awake, alert, with orientation to person, place and time. Behavior, mood, and affect are within normal limits 00:15 ECG was reviewed by the Attending Physician. EKG at 2324 reveals normal sinus rhythm at sp4 a rate of 68. Vital Signs: 10/17 22:48 BP 131 / 74; Pulse 84; Resp 16; Temp 98.4(TE); Pulse Ox 100% on R/A; Weight 68.04 kg 8 (R); Height 5 ft. 2 in. ; Pain 9/10; 23:44 BP 115 / 73; Pulse 77; Resp 17 S; Pulse Ox 97% on R/A; ha1 10/18 00:45 BP 123 / 74; Pulse 71; Resp 17 S; Pulse Ox 98% on R/A; ha1 01:40 BP 121 / 74; Pulse 69; Resp 17 S; Temp 97.9(T); Pulse Ox 98% on R/A; ha1 10/17 22:48 Body Mass Index 27.44 (68.04 kg, 157.48 cm) [facility] 10/17 22:48 Pain Scale: Adult 8 Remy Coma Score: 00:15 Eye Response: spontaneous(4). Motor Response: obeys commands(6). Verbal Response: sp4 oriented(5). Total: 15. MDM: 10/17 22:54 Patient medically screened. sp4 23:39 ED course: Old record review - Reason for Exam: dizziness, vertigo, ataxia Report sp4 Status: Signed EXAM DESCRIPTION: MRI - Brain Wo Cont - 04/26/2023 10:22 am CLINICAL HISTORY: dizziness, vertigo, ataxia COMPARISON: Head CT of the previous day TECHNIQUE: Multiplanar multisequence MRI of the brain performed without IV contrast. FINDINGS: No evidence of acute infarct or other diffusion signal abnormality. No evidence of acute intracranial hemorrhage or abnormal extra-axial fluid collections. Ventricular within normal for age. Midline structures are unremarkable. No white matter signal abnormalities. No mass effect or midline shift. Major vascular flow voids are preserved. Mastoid air cells and paranasal sinuses are clear. IMPRESSION: No acute intracranial process. No evidence of ventriculomegaly or mass effect.. 10/18 01:05 Differential diagnosis: generalized weakness, hypovolemia, idiopathic dizziness, sp4 near-syncope. Data reviewed: vital signs, nurses notes, lab test result(s), EKG, radiologic studies, plain films. ED course: Chest x-ray reveals no infiltrate no acute cardiopulmonary findings. There is normal cardio vascular silhouette. No pneumothorax, normal-appearing bony thorax. Patient is stable for discharge home. She is feeling improved after IV hydration. . 10/17 22:48 Order name: Basic Metabolic Panel; Complete Time: 01:01 sp4 10/17 22:48 Order name: CBC with Diff; Complete Time: 00:15 sp4 10/17 22:48 Order name: LFT's; Complete Time: 01:01 sp4 10/17 22:48 Order name: Magnesium; Complete Time: 01:01 sp4 10/17 22:48 Order name: NT PRO-BNP; Complete Time: 01:01 sp4 10/17 22:48 Order name: PT-INR; Complete Time: 00:15 sp4 10/17 22:48 Order name: Troponin HS; Complete Time: 01:01 sp4 10/17 23:46 Order name: Urinalysis W/Microscopic; Complete Time: 00:15 sp4 10/17 22:48 Order name: XRAY Chest (1 view) 4 10/17 22:48 Order name: EKG; Complete Time: 22:49 sp4 10/17 22:48 Order name: Cardiac monitoring; Complete Time: 23:20 sp4 10/17 22:48 Order name: EKG - Nurse/Tech; Complete Time: 23:20 4 10/17 22:48 Order name: IV Saline Lock; Complete Time: 23:37 sp4 10/17 22:48 Order name: Labs collected and sent; Complete Time: 23:38 sp4 10/17 22:48 Order name: O2 Per Protocol; Complete Time: 23:38 sp4 10/17 22:48 Order name: O2 Sat Monitoring; Complete Time: 23:38 EC:15 Rate is 68 beats/min. Rhythm is regular, Normal Sinus Rhythm. QRS [place] is Normal. LA sp4 interval is normal. QRS interval is normal. QT interval is normal. No Q waves. T waves are Normal. No ST changes noted. Clinical impression: Normal ECG. Interpreted by me. Reviewed by me. Administered Medications: 10/17 23:55 Drug: NS 0.9% IV 1000 ml IV at 1 bolus Per protocol; 1000 mL bolus Route: IV; Rate: 1 ha1 bolus; Site: right wrist; 10/18 01:38 Follow up: Response: No adverse reaction; IV Status: Completed infusion; IV Intake: ha1 1000ml Disposition Summary: 10/19/23 01:09 Discharge Ordered Notes: Location: Home sp4 Problem: new sp4 Symptoms: have improved sp4 Condition: Stable sp4 Diagnosis - Dizziness and giddiness sp4 - Exposure to unknown chemical substance sp4 Followup: sp4 - With: Private Physician - When: As needed - Reason: Recheck today's complaints Discharge Instructions: - Discharge Summary Sheet sp4 - Dizziness, Lagg-lb-Myly sp4 Forms: - Patient Portal Instructions sp4 Signatures: Dispatcher [employer] Rosita Diaz RN RN ha1 Johnathan Lerner MD MD sp4 Gaby Higgins RN RN km8
--- NOTE | 2023-10-19 01:09 | ER ---
Nurse's Notes [facility] Name: Shanna Nur Age: 48 yrs Sex: Female : 1975 Arrival Date: 10/18/2023 Time: 22:35 Bed 16 Private MD: Diagnosis: Dizziness and giddiness;Exposure to unknown chemical substance Presentation: 10/17 22:48 Chief complaint: Patient states: at about 2200 today was counting one dollar bills at [employer] work, noticed a white powder residue on them and then started to become dizzy and felt "funny", even after washing her hands. Coronavirus screen: Client denies travel out of the [place] in the last 14 days. Ebola Screen: No symptoms or risks identified at this time. Initial Sepsis Screen: Does the patient meet any 2 criteria? No. Patient's initial sepsis screen is negative. Does the patient have a suspected source of infection? No. Patient's initial sepsis screen is negative. Risk Assessment: Do you want to hurt yourself or someone else? Patient reports no desire to harm self or others. Onset of symptoms was October 18, 2023 at 22:00. 22:48 Method Of Arrival: Wheelchair km8 22:48 Acuity: JESUS 3 km8 Triage Assessment: 22:51 General: Appears in no apparent distress. comfortable, Behavior is calm, cooperative, km8 appropriate for age. Pain: Complains of pain in left index finger Pain currently is 9 out of 10 on a pain scale. EENT: No signs and/or symptoms were reported regarding the EENT system. Neuro: Level of Consciousness is awake, alert, obeys commands, Oriented to person, place, time, situation, Reports dizziness. Cardiovascular: Denies chest pain, shortness of breath, Patient's skin is warm and dry. Respiratory: Airway is patent Respiratory effort is even, unlabored, Respiratory pattern is regular, symmetrical. GI: No signs and/or symptoms were reported involving the gastrointestinal system. : No signs and/or symptoms were reported regarding the genitourinary system. Derm: No signs and/or symptoms reported regarding the dermatologic system. Skin is intact, is healthy with good turgor, Skin is dry, Skin is pink, warm \\T\\ dry. normal, Skin temperature is warm. Musculoskeletal: Range of motion: intact in all extremities. 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 Flu vaccine is not up to date. - Social history:: Smoking status: Patient denies any tobacco usage or history of. Patient uses alcohol, but reports only rare drinking. Patient/guardian denies using street drugs. - Family history:: not pertinent. Screenin:00 [facility] ED Fall Risk Assessment (Adult) History of falling in the last 3 months, ha1 including since admission No falls in past 3 months (0 pts) Confusion or Disorientation No (0 pts) Intoxicated or Sedated No (0 pts) Impaired Gait No (0 pts) Mobility Assist Device Used No (0 pt) Altered Elimination No (0 pt) Score/Fall Risk Level 0 - 2 = Low Risk Oriented to surroundings, Maintained a safe environment, Hourly rounding (assess needs \\T\\ fall precautionary measures) done. 23:46 Abuse screen: Denies threats or abuse. Denies injuries from another. Nutritional ha1 screening: No deficits noted. Tuberculosis screening: No symptoms or risk factors identified. Assessment: 22:57 General: Appears comfortable, Behavior is calm, cooperative. Pain: Denies pain. Neuro: ha1 Level of Consciousness is awake, alert, obeys commands, Oriented to person, place, time, situation. Neuro: Reports dizziness, weakness. Cardiovascular: Heart tones S1 S2 present Capillary refill < 3 seconds Patient's skin is warm and dry. Respiratory: Airway is patent Respiratory effort is even, unlabored, Respiratory pattern is regular, symmetrical. GI: No signs and/or symptoms were reported involving the gastrointestinal system. Abdomen is round non-distended. : No signs and/or symptoms were reported regarding the genitourinary system. Derm: Skin is pink, warm \\T\\ dry. Musculoskeletal: Circulation, motion, and sensation intact. Range of motion: intact in all extremities. 10/18 00:00 Reassessment: Patient and/or family updated on plan of care and expected duration. Pain ha1 level reassessed. Patient is alert, oriented x 3, equal unlabored respirations, skin warm/dry/pink. 00:58 Reassessment: Patient and/or family updated on plan of care and expected duration. Pain ha1 level reassessed. Patient is alert, oriented x 3, equal unlabored respirations, skin warm/dry/pink. 01:40 Reassessment: Patient and/or family updated on plan of care and expected duration. Pain ha1 level reassessed. Patient is alert, oriented x 3, equal unlabored respirations, skin warm/dry/pink. Patient denies pain at this time. Patient states feeling better. Patient states symptoms have improved. Vital Signs: 10/17 22:48 BP 131 / 74; Pulse 84; Resp 16; Temp 98.4(TE); Pulse Ox 100% on R/A; Weight 68.04 kg km8 (R); Height 5 ft. 2 in. ; Pain 9/10; 23:44 BP 115 / 73; Pulse 77; Resp 17 S; Pulse Ox 97% on R/A; ha1 10/18 00:45 BP 123 / 74; Pulse 71; Resp 17 S; Pulse Ox 98% on R/A; ha1 01:40 BP 121 / 74; Pulse 69; Resp 17 S; Temp 97.9(T); Pulse Ox 98% on R/A; ha1 10/17 22:48 Body Mass Index 27.44 (68.04 kg, 157.48 cm) [facility] 10/17 22:48 Pain Scale: Adult km8 [place] Coma Score: 00:15 Eye Response: spontaneous(4). Motor Response: obeys commands(6). Verbal Response: sp4 oriented(5). Total: 15. ED Course: 10/17 22:39 Patient arrived in ED. ae5 22:50 Triage completed. km8 22:51 Arm band placed on right wrist. km8 22:52 Johnathan Lerner MD is Attending Physician. sp4 22:57 Patient has correct armband on for positive identification. Placed in gown. Bed in low ha1 position. Call light in reach. Side rails up X 1. 23:15 Rosita aMnning RN is Primary Nurse. ha1 23:16 XRAY Chest (1 view) In Process Unspecified. EDMS 23:25 Inserted saline lock: 22 gauge in right wrist, using aseptic technique. Blood collected.ha1 23:38 Basic Metabolic Panel Sent. ha1 23:38 CBC with Diff Sent. ha1 23:38 LFT's Sent. ha1 23:38 Magnesium Sent. ha1 23:38 NT PRO-BNP Sent. ha1 23:38 PT-INR Sent. ha1 23:38 Troponin HS Sent. ha1 23:54 Urinalysis W/Microscopic Sent. vk 03 01:38 No provider procedures requiring assistance completed. IV discontinued, intact, ha1 bleeding controlled, No redness/swelling at site. Pressure dressing applied. 01:39 Provided Education on: following up with PCP. ha1 Administered Medications: 10/17 23:55 Drug: NS 0.9% IV 1000 ml IV at 1 bolus Per protocol; 1000 mL bolus Route: IV; Rate: 1 ha1 bolus; Site: right wrist; 10/18 01:38 Follow up: Response: No adverse reaction; IV Status: Completed infusion; IV Intake: ha1 1000ml Medication: 01:38 VIS not applicable for this client. ha1 Intake: 01:38 IV: 1000ml; Total: 1000ml. ha1 Outcome: 01:09 Discharge ordered by . sp4 01:39 Discharged to home ambulatory, ha1 01:39 Condition: stable 01:39 Discharge instructions given to patient, Instructed on discharge instructions, follow up and referral plans. Demonstrated understanding of instructions, follow-up care, 01:41 Patient left the ED. ha1 Signatures: Dispatcher [employer] EDIL Rosita Manning, RN RN ha1 Johnathan Lerner MD MD sp4 Gaby Higgins RN RN km8 Mer [place] Vivian vk
[2023-10-19 02:16] VITALS: BP 121/74; TEMP 97.9; O2SAT 98
--- NOTE | 2023-10-19 18:47 | RAD REPORT ---
EXAM DESCRIPTION: Chest Single View CLINICAL HISTORY: 1 years Female, CHEST PAIN COMPARISON: Chest radiograph dated 04/25/2023 FINDINGS: No focal lung consolidation. No pleural effusion. No pneumothorax. Cardiomediastinal silhouette is within normal limits. No acute osseous abnormality. IMPRESSION: No acute cardiopulmonary disease. Electronically signed by: Lino Robert DO 10/18/2023 11:23 PM CURB BUILDER Due to temporary technical issues with the PACS/Fluency reporting system, reports are being signed by the in house radiologists without review as a courtesy to insure prompt reporting. The interpreting radiologist is fully responsible for the content of the report.
== END ==
LOC: ER 22:35
DX: R42 Dizziness and giddiness (principal); Z77.098 Contact with and (suspected) exposure to other hazardous, chiefly nonmedicinal, chemicals
CPT/HCPCS: 36415; 71045; 80048; 80076; 83735; 83880; 84484; 85025; 85610; 93005; 96360; 96361; 99284; J7030

== ENCOUNTER 2025-06-01 20:54 | Emergency (ER) | payer SELFPAY ==
[2025-06-01] MEDS ORDERED: KETOROLAC 30 MG/ML INJ ONE (22:04)
--- NOTE | 2025-06-01 22:08 | RAD REPORT ---
EXAMINATION: US LOWER EXTREMITY VENOUS DOPPLER BILATERAL CLINICAL INDICATION: Female, 49 years old.Pain;Swelling TECHNIQUE: Complete bilateral duplex sonography of the lower extremity veins was performed. The exami nation included compression for vein patency, color Doppler imaging and flow augmentation in response to distal compression of the common femoral, femoral, popliteal, peroneal, tibial and great saphenous veins. [id number]. COMPARISON: No prior exams FINDINGS: Duplex sonography imaging demonstrates all deep veins examined to be fully compressible with spontane ous, phasic and augmented flow bilaterally. IMPRESSION: No evidence of deep venous thrombosis seen in either lower extremity.
[2025-06-01] MEDS ORDERED: HYDROCODONE/APAP 7.5/325 MG TAB ONE (22:32)
--- NOTE | 2025-06-01 23:06 | EDPHYS ---
Physician Documentation [facility] Name: William Nur Age: 49 yrs Sex: Female : 1975 Arrival Date: 06/01/2025 Time: 20:54 Bed 17 Private MD: ED Physician Johnathan Lerner HPI: 06/01 23:26 This 49 yrs old Female presents to ER via Ambulatory with complaints of Feet Swelling, kb Leg Pain, Fever. 23:26 Pt is a 49 year old male who presents for bilateral feet pain that started 4 months kb ago. States the pain is to bottom of both feet and has started to travel up calf. Reports swelling to both calves and tightness that is intermittent. States pain has gotten worse over the last 2 months since she has been working 3 double a week. . 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 - Infectious Disease History:: Denies. - Social history:: Smoking status: Patient denies any tobacco usage or history of. ROS: 23:26 Constitutional: As per HPI kb Exam: 23:26 Constitutional: This is a well developed, well nourished patient who is awake, alert, kb and in no acute distress. Head/Face: Normocephalic, atraumatic. ENT: Moist Mucous membranes Respiratory: Respirations even and unlabored. No increased work of breathing. Talking in full sentences Skin: Warm, dry with normal turgor. Normal color. MS/ Extremity: Pulses equal, no cyanosis. Neurovascular intact. Full, normal range of motion. Neuro: Awake and alert, GCS 15, oriented to person, place, time, and situation. Vital Signs: 21:12 BP 148 / 94; Pulse 88; Resp 18; Temp 98.3; Pulse Ox 100% on R/A; Weight 68.04 kg; Pain hb 10/10; 22:15 BP 128 / 77; Pulse 92; Resp 18; Pulse Ox 98% ; cp4 23:11 BP 119 / 93; Pulse 90; Resp 18; Pulse Ox 98% ; cp4 21:12 Pain Scale: Adult hb MDM: 21:00 Medical Screening Exam initiated kb 23:29 Differential diagnosis: tendonitis, Plantar fasciitis, dvt. Data reviewed: vital signs, kb nurses notes. Counseling: I had a detailed discussion with the patient and/or guardian regarding the historical points, exam findings, and any diagnostic results supporting the discharge/admit diagnosis, radiology results, the need for outpatient follow up, a family practitioner, to return to the emergency department if symptoms worsen or persist or if there are any questions or concerns that arise at home. 06/01 21:16 Order name: US Extremity Venous W Compression Alberto; Complete Time: 22:09 kb Administered Medications: 22:07 Not Given (Patient Refused): [id number] mg IM once cp4 22:33 Drug: Hydrocodone-Acetaminophen PO (7.5 mg-325 mg) 1 tabs PO once Route: PO; cp4 22:57 Follow up: Response: No adverse reaction; Pain is decreased cp4 23:09 Drug: Cyclobenzaprine PO 10 mg PO once Route: PO; cp4 23:12 Follow up: Response: No adverse reaction; Pain is decreased cp4 Disposition: 06/02 04:01 Co-signature as Attending Physician, Johnathan Lerner MD I agree with the assessment sp4 and plan of care. I reviewed the patient's care provided by the Advanced Practice Provider and agree with the diagnosis and treatment plan. Disposition Summary: 06/01/25 23:06 Discharge Ordered Notes: Location: Home kb Condition: Stable kb Diagnosis - Pain in left foot kb - Pain in right foot kb Followup: kb - With: Private Physician - When: 2 - 3 days - Reason: Recheck today's complaints, Continuance of care, Re-evaluation by your physician Followup: kb - With: Emergency Department - When: As needed - Reason: Worsening of condition Discharge Instructions: - Discharge Summary Sheet kb - Plantar Fasciitis kb - Foot Pain kb Forms: - Work release form kb - Medication Reconciliation Form kb - Antibiotic Education kb - Prescription Opioid Use kb - Patient Portal Instructions kb - Leadership Thank You Letter kb Prescriptions: - Cyclobenzaprine 10 mg Oral tablet - take 1 tablet ORAL route every 8 hours As needed; 21 tablet; Refills: 0, kb Product Selection Permitted Signatures: Dispatcher [employer] EDMS Irma Foy, Sophie Hollins RN Johnathan Wilson MD MD sp4 Sapna Shepard cp4
--- NOTE | 2025-06-01 23:06 | ER ---
Nurse's Notes [facility] Lay Name: William Nur Age: 49 yrs Sex: Female : 1975 Arrival Date: 06/01/2025 Time: 20:54 Bed 17 Private MD: Diagnosis: Pain in left foot;Pain in right foot Presentation: 06/01 21:12 Chief complaint: Patient states: BARBIE FEET AND LEG PAIN AND SWELLING SINCE FEBRUARY BUT hb WORSE IN . PT REPORTS RUNNING FEVER OFF/ON. Coronavirus screen: At this time, the client does not indicate any symptoms associated with coronavirus-19. Ebola Screen: No symptoms or risks identified at this time. Initial Sepsis Screen: Does the patient meet any 2 criteria? No. Patient's initial sepsis screen is negative. Does the patient have a suspected source of infection? No. Patient's initial sepsis screen is negative. Risk Assessment: Do you want to hurt yourself or someone else? Patient reports no desire to harm self or others. Onset of symptoms is unknown. 21:12 Method Of Arrival: Ambulatory hb 21:12 Acuity: JESUS 3 hb Triage Assessment: 21:16 General: Appears in no apparent distress. uncomfortable, Behavior is cooperative, hb appropriate for age, crying. Pain: Complains of pain in right foot, left foot, right leg and left leg Pain currently is 10 out of 10 on a pain scale. Musculoskeletal: Reports pain in right foot, left foot, right leg and left leg. 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 - Infectious Disease History:: Denies. - Social history:: Smoking status: Patient denies any tobacco usage or history of. Screenin:12 [facility] ED Fall Risk Assessment (Adult) History of falling in the last 3 months, cp4 including since admission No falls in past 3 months (0 pts) Confusion or Disorientation No (0 pts) Intoxicated or Sedated No (0 pts) Impaired Gait No (0 pts) Mobility Assist Device Used No (0 pt) Altered Elimination No (0 pt) Score/Fall Risk Level 0 - 2 = Low Risk Oriented to surroundings, Maintained a safe environment, Assessed \T\ reinforced patient's understanding of fall precautions, Hourly rounding (assess needs \T\ fall precautionary measures) done. Abuse screen: Denies threats or abuse. Denies injuries from another. Nutritional screening: No deficits noted. Tuberculosis screening: No symptoms or risk factors identified. Never had TB. Assessment: 22:12 General: Appears in no apparent distress. uncomfortable, Behavior is calm, cooperative, cp4 appropriate for age. Pain: Complains of pain in left leg and right leg and left foot and right foot Pain does not radiate. Pain currently is 10 out of 10 on a pain scale. Neuro: Level of Consciousness is awake, alert, obeys commands, Oriented to person, place, time, situation. Cardiovascular: Patient's skin is warm and dry. Respiratory: Airway is patent Respiratory effort is even, unlabored. GI: No signs and/or symptoms were reported involving the gastrointestinal system. : No signs and/or symptoms were reported regarding the genitourinary system. EENT: No signs and/or symptoms were reported regarding the EENT system. Derm: No signs and/or symptoms reported regarding the dermatologic system. Musculoskeletal: Reports pain in left leg and right leg and left foot and right foot. Vital Signs: 21:12 BP 148 / 94; Pulse 88; Resp 18; Temp 98.3; Pulse Ox 100% on R/A; Weight 68.04 kg; Pain hb 10/10; 22:15 BP 128 / 77; Pulse 92; Resp 18; Pulse Ox 98% ; cp4 23:11 BP 119 / 93; Pulse 90; Resp 18; Pulse Ox 98% ; cp4 21:12 Pain Scale: Adult hb ED Course: 20:55 Patient arrived in ED. mr 20:59 Irma Foy FNP-C [facility]. kb 20:59 Johnathan Lerner MD is Attending Physician. kb 21:16 Triage completed. hb 21:16 Arm band placed on right wrist. hb 21:54 US Extremity Venous W Compression Barbie In Process Unspecified. EDMS 22:01 Sapna Shepard is Primary Nurse. cp4 22:12 Bed in low position. Call light in reach. Side rails up X2. cp4 22:12 No provider procedures requiring assistance completed. Patient did not have IV access cp4 during this emergency room visit. 23:25 Provided Education on: foot pain. cp4 Administered Medications: 22:07 Not Given (Patient Refused): [id number] mg IM once cp4 22:33 Drug: Hydrocodone-Acetaminophen PO (7.5 mg-325 mg) 1 tabs PO once Route: PO; cp4 22:57 Follow up: Response: No adverse reaction; Pain is decreased cp4 23:09 Drug: Cyclobenzaprine PO 10 mg PO once Route: PO; cp4 23:12 Follow up: Response: No adverse reaction; Pain is decreased cp4 Medication: 22:12 VIS not applicable for this client. cp4 Outcome: 23:06 Discharge ordered by . kb 23:25 Discharged to home ambulatory, cp4 23:25 Condition: stable 23:25 Discharge instructions given to patient, family, Instructed on discharge instructions, follow up and referral plans. medication usage, Demonstrated understanding of instructions, follow-up care, medications, Prescriptions given X 1, 23:26 Patient left the ED. cp4 Signatures: Dispatcher [employer] EDNY Irma Foy, GENERAL MANAGER-C GENERAL MANAGER-CkMichelle Pimentel, Reg Reg mr Sophie French, RN RN Sapna Chen cp4
[2025-06-01] MEDS ORDERED: CYCLOBENZAPRINE 10 MG TAB ONE (23:07)
[2025-06-02 07:29] VITALS: TEMP 98.3
[2025-06-02 07:30] VITALS: O2SAT 98
[2025-06-02 07:31] VITALS: BP 119/93
== END 2025-06-01 23:26 | disposition home or self-care (01) ==
LOC: ER 20:54
DX: M79.672 Pain in left foot (principal); M79.671 Pain in right foot; R22.43 Localized swelling, mass and lump, lower limb, bilateral
CPT/HCPCS: 93970; 99283; J1885